=== PATIENT | female | born 1965 | race Caucasian/White ===

== ENCOUNTER 2018-11-05 10:52 | Day surgery (SDC) | payer OTHER ==
[~2018-11-05] VITALS: Ht 157.5 cm; Wt 68.0 kg
[~2018-11-05 10:52] MED LIST: IRON325 M1 PO; TRIAMTERENE-HC1 EAC1 PO
--- NOTE | 2018-11-05 12:27 | NUR ---
11/05/18 1227 Ashley Baldwin 1215 PT TO PACU AWAKE AND ALERT BUT DROWSY. DENIES PAIN AND NAUSEA. O2 ON 2L NASAL CANNULA.
== END 2018-11-05 12:55 | disposition home or self-care (01) ==
LOC: DS 10:52 → OPS 10:52 → DS 12:00 → OPS 12:00
PROVIDERS: Specialist
PROC: 079T3ZX Drainage of Bone Marrow, Percutaneous Approach, Diagnostic (ICD-10-PCS; 2018-11-05)
PROC: 07DR3ZX Extraction of Iliac Bone Marrow, Percutaneous Approach, Diagnostic (ICD-10-PCS; principal; 2018-11-05 12:00)
DX: D61.818 Other pancytopenia (principal); D75.89 Other specified diseases of blood and blood-forming organs; D64.9 Anemia, unspecified; R16.1 Splenomegaly, not elsewhere classified; R79.89 Other specified abnormal findings of blood chemistry; Z88.2 Allergy status to sulfonamides; Z79.899 Other long term (current) drug therapy
CPT/HCPCS: 85025; 99152; J2250; J3010; J7120

== ENCOUNTER 2020-03-12 17:26 | Emergency (ER) | payer MEDICARE ==
[~2020-03-12] VITALS: Ht 157.5 cm; Wt 67.1 kg
--- OUTSIDE RECORDS SUMMARY | ~2020-03-12 | XMS | Encounter Summary ---
Demographics + + + | Address | [address] | | | [place] [address] | + + + | Home Phone | | + + + | Preferred Language | Unknown | + + + | Marital Status | Single | + + + | Holiness Affiliation | NRP | + + + | Race | White | + + + | Ethnic Group | Not or | + + + Author + + + | Author | [facility] | + + + | Organization | [facility] | + + + | Address | Unknown | + + + | Phone | Unavailable | + + + Support + + +---------+ + | Name | Relationship | Address | Phone | + + +---------+ + | Claudia Cota | ECON | Unknown | | + + +---------+ + Care Team Providers + +------+ + | Care Manager Biologics Name | Role | Phone | + +------+ + | Meredith Sanchez | PCP | | + +------+ + Reason for Visit + + + | Reason | Comments | + + + | Infusion | Hydration/Magnesium/Potassium | + + + Other (Routine) +--------+--------+ + + + + | Status | Reason | Specialty | Diagnoses / | Referred By | Referred To | | | | | Procedures | Contact | Contact | +--------+--------+ + + + + | Closed | | Hematology | Diagnoses | Wil, | [facility] | | | | 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 | e[facility] [place], | [facility] [address] | | | | | (myelodyspla | DO [address] | | | | | stic | Jon Valverde | [facility] for | | | | | syndrome) | [facility] | [facility] and | | | | | (HCC) | [place], [place] | Healing, | | | | | Procedures | [address] | [address] | | | | | [place] | Phone: | [place], [place] | | | | | OFFICE/OUTPT | [phone] | [address] | | | | | | Fax: | Phone: | | | | | VISIT,EST,LE | [phone] | [phone] | | | | | [place] | | Fax: | | | | | EST PATIENT | | [phone] | | | | | LEVEL V | | | +--------+--------+ + + + + Encounter Details +--------+ + + + + | Date | Type | Department | Care Team | Description | +--------+ + + + + | 01/16/ | Hospital | [facility] | Onc, Gen [address] | | | 2020 | Encounter | Clinics at S | [facility], | | | | | [facility] [address] | [place] [address] | | | | | [facility] | | | | | | Health and Healing, | | | | | | [address] | | | | | | [place], [place] | | | | | | [address] | | | | | | [phone] | | | +--------+ + + + + Social History + + + +--------+ + | Tobacco Use | Types | Packs/Day | Years | Date | | | | | Used | | + + + +--------+ + | Former Smoker | Cigarettes | 1.5 | 28 | Quit: 06/29/2004 | + + + +--------+ + + +---+---+---+ | Smokeless Tobacco: | | | | | Never Used | | | | + +---+---+---+ + + +---------+ + | Alcohol Use | Drinks/Week | oz/Week | Comments | + + +---------+ + | Not Currently | | | very occasionally | + + +---------+ + + + + | Sex Assigned at | Date Recorded | | | | + + + | Not on file | | + + + documented as of this encounter Last Filed Vital Signs + + + + + | Vital Sign | Reading | Time Taken | Comments | + + + + + | Blood Pressure | 109/71 | 07/14/2019 9:49 AM | | | | | PST | | + + + + + | Pulse | 70 | 07/14/2019 9:49 AM | | | | | PST | | + + + + + | Temperature | 36.9 C (98.4 F) | 07/14/2019 9:49 AM | | | | | PST | | + + + + + | Respiratory Rate | 16 | 07/14/2019 9:49 AM | | | | | PST | | + + + + + | Oxygen Saturation | 98% | 07/14/2019 9:49 AM | | | | | PST | | + + + + + | Inhaled Oxygen | - | - | | | Concentration | | | | + + + + + | Weight | - | - | | + + + + + | Height | - | - | | + + + + + | Body Mass Index | - | - | | + + + + + documented in this encounter Functional Status + + + + | Functional Status | Response | Date of Assessment | + + + + | Because of a physical, mental, or emotional | No | 07/08/2019 | | condition, do you have serious difficulty | | | | doing errands alone such as visiting the | | | | doctor? | | | + + + + + + + + | Cognitive Status | Response | Date of Assessment | + + + + | Because of a physical, mental, or emotional | No | 07/08/2019 | | condition, do you have serious difficulty | | | | concentrating, remembering, or making | | | | decisions? (5 years old or older) | | | + + + + documented as of this encounter Medications at Time of Discharge + + + +---------+ + + | Medication | Sig | Dispensed | Refills | Start | End Date | | | | | | Date | | + + + +---------+ + + | valACYclovir 500 | Take 1 tablet by | 60 | 11 | 05/18/20 | | | mg oral tablet | mouth two times | tablet | | 19 | | | | daily. | | | | | + + + +---------+ + + | ciprofloxacin HCl | Take 1 tablet by | 14 | 0 | 07/12/19 | | | 500 mg oral | mouth two times | tablet | | 20 | 0 | | tabletIndications: | daily for 7 days. | | | | | | intra-abdominal | Indications: | | | | | | infection | abdominal infection | | | | | + + + +---------+ + + | metroNIDAZOLE 500 | Take 1 tablet by | 21 | 0 | 07/12/19 | | | mg oral tablet | mouth three times | tablet | | 20 | 0 | | | daily for 7 days. | | | | | + + + +---------+ + + documented as of this encounter Progress Notes Lexi Olivo RN - 07/14/2019 10:10 AM PST Name: Nona Hopper Date: 07/14/2019 Physician: Wil Allergies: Nona is allergic to cefepime and sulfa (sulfonamide antibiotics). Diagnosis: MDS Significant Other: caregiver Nursing Assessment: Fever: no; Diarrhea:No, pt states that diarrhea resolved two days ago Constipation: No SOB / Cough: no; Rash: no Edema: no; Mucositis: no; Urinary: no; Neuropathy: no; S/S Bleeding: no; Severity (1=Not at all, 2=A little, 3=Quite a bit, 4=Very much) Nausea and/or Vomitin Fatigue: 2 Pain: 0 Location: denies Duration: denies Narrative: Patient here for Magnesium and potassium. Dual chest groshong with brisk blood return obtained from both lumens. Posiflow valves and dressing changed per protocol. Each lumen flushed with 20ml NS Pt reports good PO intake. Labs include: Magnesium of 1.4 and Potassium of 2.9. Positive blood return on IV line prio r and after infusion. Medication infused with 250ml NS sidearm bag. Pt tolerated without i ncident. Line flushed per protocol. Pt Alert & Oriented x3 and discharged ambulatory. Refer to MAR and Onc Lines and Transfusions doc flowsheet for treatment details. documented in this enco unter Plan of Treatment Not on filedocumented as of this encounter Visit Diagnoses + + | Diagnosis | + + | MDS (myelodysplastic syndrome) (HCC) - Primary Myelodysplastic syndrome, unspecified | + + documented in this encounter Administered Medications + +---------+ +------+------+------+ | Medication Order | MAR | Action | Dose | Rate | Site | | | Action | Date | | | | + +---------+ +------+------+------+ | magnesium sulfate in water IV | New Bag | 07/14/19 | 4 g | | | | (RTU) 4 g 4 g, intravenous, | | 20 10:20 | | | | | ONCE, 1 dose, Cheryl 07/14/19 at 1000 | | AM PST | | | | + +---------+ +------+------+------+ +---+---+ | | | +---+---+ + +---------+ +--------+---+---+ | potassium chloride in water IV | New Bag | 07/14/19 | 20 mEq | | | | (CENTRAL LINE) 20 mEq 20 mEq, | | 20 12:20 | | | | | intravenous, ONCE, 1 dose, Cheryl | | PM PST | | | | | 07/14/19 at 1045 | | | | | | + +---------+ +--------+---+---+ +---+---+ | | | +---+---+ + +---------+ +--------+---+---+ | potassium chloride in water IV | New Bag | 07/14/19 | 20 mEq | | | | (CENTRAL LINE) 20 mEq 20 mEq, | | 20 10:20 | | | | | intravenous, ONCE, 1 dose, Cheryl | | AM PST | | | | | 07/14/19 at 1100 | | | | | | + +---------+ +--------+---+---+ +---+---+ | | | +---+---+ + +-------+ +--------+---+---+ | potassium chloride SR | Given | 07/14/19 | 20 mEq | | | | (KLOR-CON) tablet 20 mEq 20 mEq, | | 20 12:10 | | | | | oral, ONCE, 1 dose, Cheryl 07/14/19 | | PM PST | | | | | at 1045 | | | | | | + +-------+ +--------+---+---+ +---+---+ | | | +---+---+ documented in this encounter"
--- OUTSIDE RECORDS SUMMARY | ~2020-03-12 | XMS | Encounter Summary ---
Demographics + + + | Address | [address] | | | [place] [address] | + + + | Home Phone | | + + + | Preferred Language | Unknown | + + + | Marital Status | Single | + + + | Episcopal Affiliation | NRP | + + + | Race | White | + + + | Ethnic Group | Not or | + + + Author + + + | Author | [facility] | + + + | Organization | [facility] | + + + | Address | Unknown | + + + | Phone | Unavailable | + + + Support + + +---------+ + | Name | Relationship | Address | Phone | + + +---------+ + | Claudia Cota | ECON | Unknown | | + + +---------+ + Care Team Providers + +------+ + | Care Pure Culture Operator Name | Role | Phone | + +------+ + PCP | Unavailable | + +------+ + Encounter Details +--------+ + + + + | Date | Type | Department | Care Team | Description | +--------+ + + + + | 11/23/ | Abstract | [facility] | Sejal De La Torre | | | 2019 | | Clinics at S | N, DO [address] [facility] | | | | | [facility] [address] | [facility] | | | | | [facility] | [place], [place] | | | | | Health and Healing, | [address] | | | | | [address] | [phone] | | | | | [place], [place] | | | | | | [address] | | | | | | [phone] | | | +--------+ + + + + Social History + +-------+ +--------+------+ | Tobacco Use | Types | Packs/Day | Years | Date | | | | | Used | | + +-------+ +--------+------+ | Never Assessed | | | | | + +-------+ +--------+------+ + + + | Sex Assigned at | Date Recorded | | | | + + + | Not on file | | + + + documented as of this encounter Plan of Treatment Not on filedocumented as of this encounter Visit Diagnoses Not on filedocumented in this encounter"
--- OUTSIDE RECORDS SUMMARY | ~2020-03-12 | XMS | Encounter Summary ---
Demographics + + + | Address | [address] | | | [place] [address] | + + + | Home Phone | | + + + | Preferred Language | Unknown | + + + | Marital Status | Single | + + + | Jew Affiliation | NRP | + + + | Race | White | + + + | Ethnic Group | Not or | + + + Author + + + | Author | [facility] | + + + | Organization | [facility] | + + + | Address | Unknown | + + + | Phone | Unavailable | + + + Support + + +---------+ + | Name | Relationship | Address | Phone | + + +---------+ + | Claudia Cota | ECON | Unknown | | + + +---------+ + Care Team Providers + +------+ + | Care Store Lead Name | Role | Phone | + +------+ + | Meredith Sanchez | PCP | | + +------+ + Reason for Visit + + + | Reason | Comments | + + + | Infusion | | + + + | Medication | | | Administration | | + + + | Lab Draw | | + + + Other (Routine) +--------+--------+ + + + + | Status | Reason | Specialty | Diagnoses / | Referred By | Referred To | | | | | Procedures | Contact | Contact | +--------+--------+ + + + + | Closed | | Hematology | Diagnoses | Wil, | [facility] | | | | 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 | Sejal Abdiel, | [facility] [address] | | | | | (myelodyspla | DO [address] | | | | | stic | [facility] [place] | [facility] | | | | | syndrome) | [facility] | Health and | | | | | (HCC) | [place], [place] | Healing, | | | | | Procedures | [address] | [address] | | | | | [place] | Phone: | [place], [place] | | | | | OFFICE/OUTPT | [phone] | [address] | | | | | | Fax: | Phone: | | | | | VISIT,EST,LE | [phone] | [phone] | | | | | [place] | | Fax: | | | | | EST PATIENT | | [phone] | | | | | LEVEL V | | | +--------+--------+ + + + + Encounter Details +--------+ + + + + | Date | Type | Department | Care Team | Description | +--------+ + + + + | 12/31/ | Hospital | [facility] | | | | 2019 | Encounter | [facility] | | | | | | [facility] [address] | | | | | | [address] [facility] | | | | | | [facility] and Healing, | | | | | | [address] | | | | | | [place], [place] | | | | | | [address] | | | | | | [phone] | | | +--------+ + + + [...] + + + | Blood Pressure | 116/54 | 06/28/2019 3:05 PM | | | | | PST | | + + + + + | Pulse | 97 | 06/28/2019 3:05 PM | | | | | PST | | + + + + + | Temperature | 36.4 C (97.5 F) | 06/28/2019 3:05 PM | | | | | PST | | + + + + + | Respiratory Rate | - | - | | + + + + + | Oxygen Saturation | 99% | 06/28/2019 3:05 PM | | | | | PST | | + + + + + | Inhaled Oxygen | - | - | | | Concentration | | | | + + + + + | Weight | 56.7 kg (125 lb) | 06/28/2019 3:05 PM | | | | | PST | | + + + + + | Height | - | - | | + + + + + | Body Mass Index | 22.14 | 06/21/2019 9:34 AM | | | | | PST | | + + + + + documented in this encounter Functional Status + + + + | Functional Status | Response | Date of Assessment | + + + + | Because of a physical, mental, or emotional | No | 04/18/2019 | | condition, do you have serious difficulty | | | | doing errands alone such as visiting the | | | | doctor? | | | + + + + + + + + | Cognitive Status | Response | Date of Assessment | + + + + | Because of a physical, mental, or emotional | No | 04/18/2019 | | condition, do you have serious [...] + + + +---------+ + + | clotrimazole 10 mg | Take 1 tablet by | 50 | 0 | 06/24/20 | | | mucous membrane | mouth five times | Kelli | | 19 | 0 | | kelli | daily for 10 days. | | | | | | | Allow to dissolve | | | | | | | for 15-30 minutes. | | | | | + + + +---------+ + + documented as of this encounter Plan of Treatment Not on filedocumented as of this encounter Procedures + +--------+ + + + | Procedure Name | Priori | Date/Time | Associated Diagnosis | Comments | | | ty | | | | + +--------+ + + + | [facility] - MAGNESIUM, | Routin | 06/28/2019 | S/P cord blood | Results for this | | PLASMA | e | 3:00 PM | transplantation MDS | procedure are in the | | | | PST | (myelodysplastic | results section. | | | |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) | | + +--------+ + + + | [facility] - PHOSPHORUS, | Routin | 06/28/2019 | S/P cord blood | Results for this | | PLASMA | e | 3:00 PM | transplantation MDS | procedure are in the | | | | PST | (myelodysplastic | results section. | | | |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) | | + +--------+ + + + | [facility] - LDH TOTAL, | Routin | 06/28/2019 | S/P cord blood | Results for this | | PLASMA | e | 3:00 PM | transplantation MDS | procedure are in the | | | | PST | (myelodysplastic | results section. | | | |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) | | + +--------+ + + + | CBC AND AUTO DIFF | Routin | 06/28/2019 | S/P cord blood | Results for this | | | e | 3:00 PM | transplantation MDS | procedure are in the | | | | PST | (myelodysplastic | results section. | | | | | syndrome) ([facility]) | | + +--------+ + + + | [facility] - COMPLETE | Routin | 06/28/2019 | S/P cord blood | Results for this | | METABOLIC SET | e | 3:00 PM | transplantation MDS | procedure are in the | | | | PST | (myelodysplastic | results section. | | | | | syndrome) ([facility]) | | + +--------+ + + + | [facility] CBC W | Routin | 06/28/2019 | S/P cord blood | Results for this | | DIFFERENTIAL | e | 3:00 PM | transplantation MDS | procedure are in the | | | | PST | (myelodysplastic | results section. | | | | | syndrome) ([facility]) | | + +--------+ + + + | CMV PCR | Routin | 06/28/2019 | S/P cord blood | Results for this | | QUANTITATION, PLASMA | e | 3:00 PM | transplantation MDS | procedure are in the | | | | PST | (myelodysplastic | results section. | | | |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) | | + +--------+ + + + | TSH | Routin | 06/28/2019 | Fatigue, | Results for this | | | e | 3:00 PM | unspecified type | procedure are in the | | | | PST | | results section. | + +--------+ + + + documented in this encounter Results CBC AND AUTO DIFF (06/28/2019 3:00 PM PST) + + + + + + | Component | Value | Ref Range | Performed | Pathologist | | | | | At | Signature | + + + + + + | WHITE CELL | 5.31 | 3.50 - 10.80 | [facility] | | | COUNT | | K/cu mm | LABORATORY | | | | | | SERVICES, | | | | | | [facility] + | | | | | | [facility]ALING | | + + + + + + | RED CELL | 3.29 (L) | 4.00 - 5.20 | [facility] | | | COUNT | | M/cu mm | LABORATORY | | | | | | SERVICES, | | | | | | [facility] + | | | | | | [facility]ALING | | + + + + + + | HEMOGLOBIN | 9.5 (L) | 12.0 - 16.0 | [facility] | | | | | g/dL | LABORATORY | | | | | | SERVICES, | | | | | | [facility] + | | | | | | [facility]ALING | | + + + + + + | HEMATOCRIT | 29.7 (L) | 36.0 - 46.0 % | [facility] | | | | | | LABORATORY | | | | | | SERVICES, | | | | | | [facility] + | | | | | | [facility]ALING | | + + + + + + | MCV | 90.3 | 80.0 - 100.0 fL | [facility] | | | | | | LABORATORY | | | | | | SERVICES, | | | | | | [facility] + | | | | | | [facility]ALING | | + + + + + + | MCHC | 32.0 | 32.0 - 36.0 | [facility] | | | | | g/dL | LABORATORY | | | | | | SERVICES, | | | | | | [facility] + | | | | | | [facility]ALING | | + + + + + + | RDW SD | 53.0 (H) | 35.1 - 46.3 fL | [facility] | | | | | | LABORATORY | | | | | | SERVICES, | | | | | | [facility] + | | | | | | [facility]ALING | | + + + + + + | PLATELET | 156 | 150 - 400 K/cu | [facility] | | | COUNT | | mm | LABORATORY | | | | | | SERVICES, | | | | | | [facility] + | | | | | | [facility]ALING | | + + + + + + | MPV | Comment: Not Measured | | [facility] | | | | | | LABORATORY | | | | | | SERVICES, | | | | | | [facility] + | | | | | | [facility]ALING | | + + + + + + | NRBC% | 0.0 | 0.0 - 0.3 % | [facility] | | | | | | LABORATORY | | | | | | SERVICES, | | | | | | [facility] | [facility] + | | | | | | HEALING | | + + + + + + | NRBC# | 0.00 | 0.00 - 0.02 | [facility] | | | | | K/cu mm | LABORATORY | | | | | | SERVICES, | | | | | | [facility] | [facility] + | | | | | | HEALING | | + + + + + + | NEUTROPHIL | 55.5 | 50.0 - 70.0 % | [facility] | | | % | | | LABORATORY | | | | | | SERVICES, | | | | | | [facility] | [facility] + | | | | | | HEALING | | + + + + + + | LYMPHOCYTE | 19.2 | 18.0 - 42.0 % | [facility] | | | % | | | LABORATORY | | | | | | SERVICES, | | | | | | [facility] | [facility] + | | | | | | HEALING | | + + + + + + | MONOCYTE % | 13.6 (H) | 3.5 - 9.0 % | [facility] | | | | | | LABORATORY | | | | | | SERVICES, | | | | | | [facility] | [facility] + | | | | | | HEALING | | + + + + + + | EOS % | 10.7 (H) | 1.0 - 3.0 % | [facility] | | | | | | LABORATORY | | | | | | SERVICES, | | | | | | [facility] | [facility] + | | | | | | HEALING | | + + + + + + | BASO % | 0.2 | 0.0 - 2.0 % | [facility] | | | | | | LABORATORY | | | | | | SERVICES, | | | | | | [facility] | [facility] + | | | | | | HEALING | | + + + + + + | IG% | 0.8 | 0.0 - 1.0 % | [facility] | | | | | | LABORATORY | | | | | | SERVICES, | | | | | | [facility] | [facility] + | | | | | | HEALING | | + + + + + + | NEUTROPHIL | 2.95 | 1.80 - 7.70 | [facility] | | | # | | K/cu mm | LABORATORY | | | | | | SERVICES, | | | | | | [facility] | [facility] + | | | | | | HEALING | | + + + + + + | NEUTROPHIL | 2.95Comment: Preliminary | 1.80 - 7.70 | [facility] | | | # Prelim | automated neutrophil | K/cu mm | LABORATORY | | | | result. Refer to | | SERVICES, | | | | Neutrophil # for final | | [facility] | | | | neutrophil result, which | | HEALTH + | | | | may differ from this | | HEALING | | | | preliminary value. | | | | + + + + + + | LYMPHOCYTE | 1.02 | 1.00 - 4.80 | [facility] | | | # | | K/cu mm | LABORATORY | | | | | | SERVICES, | | | | | | [facility] | [facility] + | | | | | | HEALING | | + + + + + + | MONOCYTE # | 0.72 | 0.10 - 0.90 | [facility] | | | | | K/cu mm | LABORATORY | | | | | | SERVICES, | | | | | | [facility] | [facility] + | | | | | | HEALING | | + + + + + + | EOS # | 0.57 (H) | 0.00 - 0.50 | [facility] | | | | | K/cu mm | LABORATORY | | | | | | SERVICES, | | | | | | [facility] | [facility] + | | | | | | HEALING | | + + + + + + | BASO # | 0.01 | 0.00 - 0.10 | [facility] | | | | | K/cu mm | LABORATORY | | | | | | SERVICES, | | | | | | [facility] | | [facility] + | | | | | | HEALING | | + + + + + + | IG# | 0.04 | 0.00 - 0.10 | [facility] | | | | | K/cu mm | LABORATORY | | | | | | SERVICES, | | | | | | [facility] | [facility] + | | | | | | HEALING | | + + + + + + + + | Specimen | + + | Blood - Blood | | (substance) | + + + + + | Narrative | Performed At | + + + | Increased immature granulocytes (IG) define a left shift. Immature | [facility] | | granulocytes (IG) are an automated count of metamyelocytes, myelocytes | LABORATORY | | and promyelocytes. Bands are not included in the IG count. Bands are | SERVICES, | | included in the neutrophil count. | [facility] + | | | HEALING | + + + + + + + + | Performing | Address | City/State/Zipcode | Phone Number | | Organization | | | | + + + + + | [facility] | [address] | [place] [address] | | | SERVICES, [facility] | | | | | [facility] + HEALING | | | | + + + + + [facility] - COMPLETE METABOLIC SET (06/28/2019 3:00 PM PST) + +---------+ + + + | Component | Value | Ref Range | Performed | Pathologist | | | | | At | Signature | + +---------+ + + + | GLUCOSE, | 129 (H) | 70 - 99 mg/dL | [facility] | | | PLASMA | | | LABORATORY | | | (LAB) | | | SERVICES, | | | | | | [facility] | [facility] + | | | | | | HEALING | | + +---------+ + + + | BUN, PLASMA | 15 | 6 - 20 mg/dL | [facility] | | | (LAB) | | | LABORATORY | | | | | | SERVICES, | | | | | | [facility] | | | | [facility] + | | | | | | HEALING | | + +---------+ + + + | CREATININE | 1.07 | 0.60 - 1.10 | [facility] | | | PLASMA | | mg/dL | LABORATORY | | | (LAB) | | | SERVICES, | | | | | | [facility] | [facility] + | | | | | | HEALING | | + +---------+ + + + | EGFR | >60 | >60 mL/min | [facility] | | | - | | | LABORATORY | | | PALESTINIAN | | | SERVICES, | | | | | | [facility] | [facility] + | | | | | | HEALING | | + +---------+ + + + | EGFR NON | 53 (L) | >60 mL/min | [facility] | | | -RENAE | | | LABORATORY | | | RICAN | | | SERVICES, | | | | | | [facility] | [facility] + | | | | | | HEALING | | + +---------+ + + + | SODIUM, | 135 (L) | 136 - 145 | [facility] | | | PLASMA | | mmol/L | LABORATORY | | | (LAB) | | | SERVICES, | | | | | | [facility] | [facility] + | | | | | | HEALING | | + +---------+ + + + | POTASSIUM, | 3.4 | 3.4 - 5.0 | [facility] | | | PLASMA | | mmol/L | LABORATORY | | | (LAB) | | | SERVICES, | | | | | | [facility] | | [facility] + | | | | | | HEALING | | + +---------+ + + + | CHLORIDE, | 102 | 97 - 108 mmol/L | [facility] | | | PLASMA | | | LABORATORY | | | (LAB) | | | SERVICES, | | | | | | [facility] | | [facility] + | | | | | | HEALING | | + +---------+ + + + | TOTAL CO2, | 19 (L) | 21 - 32 mmol/L | [facility] | | | PLASMA | | | LABORATORY | | | (LAB) | | | SERVICES, | | | | | | [facility] | | [facility] + | | | | | | HEALING | | + +---------+ + + + | CALCIUM, | 9.1 | 8.6 - 10.2 | [facility] | | | PLASMA | | mg/dL | LABORATORY | | | (LAB) | | | SERVICES, | | | | | | [facility] | | [facility] | [facility] + | | | | | | HEALING | | + +---------+ + + + | CALCIUM(ALB | 9.5 | 8.6 - 10.2 | [facility] | | | CORRECTED) | | mg/dL | LABORATORY | | | | | | SERVICES, | | | | | | [facility] | [facility] + | | | | | | HEALING | | + +---------+ + + + | BILIRUBIN | 0.9 | 0.3 - 1.2 mg/dL | [facility] | | | TOTAL | | | LABORATORY | | | | | | SERVICES, | | | | | | [facility] | [facility] + | | | | | | HEALING | | + +---------+ + + + | TOTAL | 6.5 | 6.4 - 8.2 g/dL | [facility] | | | PROTEIN, | | | LABORATORY | | | PLASMA | | | SERVICES, | | | (LAB) | | | [facility] | | | [facility] + | | | | | | HEALING | | + +---------+ + + + | ALBUMIN, | 3.5 | 3.5 - 4.7 g/dL | [facility] | | | PLASMA | | | LABORATORY | | | (LAB) | | | SERVICES, | | | | | | [facility] | [facility] + | | | | | | HEALING | | + +---------+ + + + | ALK PHOS | 88 | 42 - 98 U/L | [facility] | | | | | | LABORATORY | | | | | | SERVICES, | | | | | | [facility] | [facility] + | | | | | | HEALING | | + +---------+ + + + | AST(SGOT) | 13 | <=41 U/L | [facility] | | | | | | LABORATORY | | | | | | SERVICES, | | | | | | [facility] | | [facility] + | | | | | | HEALING | | + +---------+ + + + | ALT (SGPT) | 14 | <=60 U/L | [facility] | | | | | | LABORATORY | | | | | | SERVICES, | | | | | | [facility] | [facility] + | | | | | | HEALING | | + +---------+ + + + | ANION GAP | 14 (H) | 4 - 11 mmol/L | [facility] | | | | | | LABORATORY | | | | | | SERVICES, | | | | | | [facility] | | [facility] + | | | | | | HEALING | | + +---------+ + + + | ANION | 15 (H) | 4 - 11 mmol/L | [facility] | | | GAP(ALB | | | LABORATORY | | | CORRECTED) | | | SERVICES, | | | | | | [facility] | | [facility] + | | | | | | HEALING | | + +---------+ + + + | POTASSIUM | No Hemo | | [facility] | | | CMNT | | | LABORATORY | | | | | | SERVICES, | | | | | | [facility] | [facility] + | | | | | | HEALING | | + +---------+ + + + | BILI T CMNT | No Hemo | | [facility] | | | | | | LABORATORY | | | | | | SERVICES, | | | | | | [facility] | | [facility] + | | | | | | HEALING | | + +---------+ + + + | AST CMNT | No Hemo | | [facility] | | | | | | LABORATORY | | | | | | SERVICES, | | | | | | [facility] | | [facility] + | | | | | | HEALING | | + +---------+ + + + | BUN/CREATIN | 14 | 8 - 25 | [facility] | | | INE RATIO | | | LABORATORY | | | | | | SERVICES, | | | | | | [facility] | [facility] + | | | | | | HEALING | | + +---------+ + + + | GLOBULIN | 3.0 | 2.3 - 3.5 gm/dL | [facility] | | | LVL | | | LABORATORY | | | | | | SERVICES, | | | | | | [facility] | [facility] + | | | | | | HEALING | | + +---------+ + + + | ALBUMIN/BURTON | 1.2 | 0.9 - 2.0 | [facility] | | | BULIN RATIO | | | LABORATORY | | | | | | SERVICES, | | | | | | [facility] | [facility] + | | | | | | HEALING | | + +---------+ + + + + + | Specimen | + + | Blood - Blood | | (substance) | + + + + + | Narrative | Performed At | + + + | GFR is estimated using the MDRD equation recommended by the National | [facility] | | Kidney Disease Education Program. Estimated GFR Interpretive | LABORATORY | | Information: <60 mL/min/1.73 sq m Chronic Kidney | SERVICES, | | Disease <15 mL/min/1.73 sq m Kidney Failure | [facility] | | Estimated GFR greater than 60 mL/min/1.73 sq m is of limited clinical | HEALTH + | | value. The MDRD equation is not valid in the following situations: | HEALING | | - Patients under 18 years of age - Severe malnutrition or obesity | | | - Vegetarian diet - Rapidly changing kidney function - Amputees, | | | paraplegics, or other muscle-wasting diseases | | + + + + + + + + | Performing | Address | City/State/Zipcode | Phone Number | | Organization | | | | + + + + + | [facility] | [address] | [place] [address] | | | SERVICES, [facility] | | | | [facility] + [facility]ALING | | | | + + + + + [facility] - LDH TOTAL, PLASMA (06/28/2019 3:00 PM PST) + +---------+ + + + | Component | Value | Ref Range | Performed | Pathologist | | | | | At | Signature | + +---------+ + + + | LD TOTAL, | 155 | <=250 U/L | [facility] | | | PLASMA | | | LABORATORY | | | | | | SERVICES, | | | | | | [facility] | | | [facility] + | | | | | | HEALING | | + +---------+ + + + | LD CMNT | No Hemo | | [facility] | | | | | | LABORATORY | | | | | | SERVICES, | | | | | | [facility] | | [facility] + | | | | | | HEALING | | + +---------+ + + + + + | Specimen | + + | Blood - Blood | | (substance) | + + + + + + + | Performing | Address | City/State/Zipcode | Phone Number | | Organization | | | | + + + + + | [facility] | [address] | [place] [address] | | | [facility] | | | | | HEALTH + HEALING | | | | + + + + + [facility] - MAGNESIUM, PLASMA (06/28/2019 3:00 PM PST) + +---------+ + + + | Component | Value | Ref Range | Performed | Pathologist | | | | | At | Signature | + +---------+ + + + | MAGNESIUM,P | 1.1 (L) | 1.6 - 2.6 mg/dL | [facility] | | | LASMA | | | LABORATORY | | | | | | SERVICES, | | | | | | [facility] | | | | [facility] + | | | | | | HEALING | | + +---------+ + + + + + | Specimen | + + | Blood - Blood | | (substance) | + + + + + + + | Performing | Address | City/State/Zipcode | Phone Number | | Organization | | | | + + + + + | [facility] | [address] | [place] [address] | | | [facility], [facility] | | | | | HE[facility] + HEALING | | | | + + + + + [facility] - PHOSPHORUS, PLASMA (06/28/2019 3:00 PM PST) + +-------+ + + + | Component | Value | Ref Range | Performed | Pathologist | | | | | At | Signature | + +-------+ + + + | PHOSPHORUS, | 3.5 | 2.4 - 4.7 mg/dL | [facility] | | | PLASMA | | | LABORATORY | | | (LAB) | | | SERVICES, | | | | | | [facility] | | | | | [facility] + | | | | | | HEALING | | + +-------+ + + + + + | Specimen | + + | Blood - Blood | | (substance) | + + + + + + + | Performing | Address | City/State/Zipcode | Phone Number | | Organization | | | | + + + + + | [facility] | [address] | [place] [address] | | | SERVICES, [facility] | | | | | [facility] + HEALING | | | | + + + + + CMV PCR QUANTITATION, PLASMA (06/28/2019 3:00 PM PST) + + + + + + | Component | Value | Ref Range | Performed | Pathologist | | | | | At | Signature | + + + + + + | CMV DNA | Undetected | Undetected, | [facility] | | | QUANTITATIO | | Undetected - | DIAGNOSTIC | | | N BY PCR, | | See Below IU/mL | | | | PLASMA | | | LABORATORIE | | | | | | S | | + + + + + + + + | Specimen | + + | Blood - Blood | | (substance) | + + + + + | Narrative | Performed At | + + + | Changes in viral load of less than 2 fold may not reflect true | [facility] | | biological changes and must be interpreted cautiously. High or | DIAGNOSTIC | | serially rising CMV loads may indicate active or impending CMV disease | LABORATORIES | | or poor antiviral therapy response. Undetected results suggest | | | either an absence of CMV viremia or the presence of low-level viremia | | | below the lower sensitivity limit of 200 IU/mL. Reportable range = | | | 200-5,000,000,000 CMV IU/mL of plasma Detection limit: At or below | | | 200 CMV IU/mL This test was developed and its performance | | | characteristics determined by the [facility] | | | [facility]. It has not been cleared or approved by | | | the Food and Drug Administration. FDA approval is not required for | | | clinical use of this test, and therefore validation was done as | | | required under the requirements of the Clinical Laboratory Improvement | | | Act of 1988. The [facility] | | | Diagnostic Center is a fully licensed and/or accredited clinical | | | laboratory under CLIA, CAP, and the [facility]. | | + + + + + + + + | Performing | Address | City/State/Zipcode | Phone Number | | Organization | | | | + + + + + | [facility] | [address] | [place] [address] | | | DIAGNOSTIC | [address] | | | | LABORATORIES | | | | + + + + + TSH (06/28/2019 3:00 PM PST) + +-------+ + + + | Component | Value | Ref Range | Performed | Pathologist | | | | | At | Signature | + +-------+ + + + | TSH | 2.40 | 0.50 - 5.07 | [facility] | | | | | mIU/L | LABORATORY | | | | | | SERVICES, | | | | | | CORE | | + +-------+ + + + + + | Specimen | + + | Blood - Blood | | (substance) | + + + + + | Narrative | Performed At | + + + | TSH reference ranges are influenced by a variety of environmental | [facility] | | influences, age, gender and ethnicity. The supplied reference limits | LABORATORY | | are based on published values utilizing a similar TSH assay, and | SERVICES, CORE | | should be interpreted with caution. | | + + + + + + + + | Performing | Address | City/State/Zipcode | Phone Number | | Organization | | | | + + + + + | [facility] | [address] | [place] [address] | | | SERVICES, CORE | [address] | | | + + + + + documented in this encounter Visit Diagnoses + + | Diagnosis | + + | Fatigue, unspecified type - Primary | + + | S/P cord blood transplantation Other specified organ or tissue replaced by transplant | + + | MDS (myelodysplastic syndrome) (HCC) Myelodysplastic syndrome, unspecified | + + documented in this encounter Administered Medications + +---------+ +------+------+------+ | Medication Order | MAR | Action | Dose | Rate | Site | | | Action | Date | | | | + +---------+ +------+------+------+ | magnesium sulfate in water IV | New Bag | 06/28/20 | 2 g | | | | (RTU) 2 g 2 g, intravenous, | | 19 3:37 | | | | | ONCE, 1 dose, 06/28/19 at | | PM PST | | | | | 1530 | | | | | | + +---------+ +------+------+------+ +---+---+ | | | +---+---+ + +---------+ +-----+---+---+ | magnesium sulfate in water IV | | 06/28/20 | 2 g | | | | (RTU) 2 g 2 g, intravenous, | | 19 4:25 | | | | | ONCE, 1 dose, Thu06/28/19 at | | PM PST | | | | | 1815 | | | | | | + +---------+ +-----+---+---+ +---+---+ | | | +---+---+ + +---------+ +-----+---+---+ | magnesium sulfate in water IV | | 06/28/20 | 4 g | | | | (RTU) 4 g 4 g, intravenous, | | 19 5:21 | | | | | ONCE, 1 dose, Thu06/28/19 at | | PM PST | | | | | 1615 | | | | | | + +---------+ +-----+---+---+ +---+---+ | | | +---+---+ + +-------+ +--------+---+---+ | potassium chloride SR | Given | 06/28/20 | 40 mEq | | | | (KLOR-CON) tablet 40 mEq 40 mEq, | | 19 5:19 | | | | | oral, ONCE, 1 dose, Thu06/28/19 | | PM PST | | | | | at 1615 | | | | | | + +-------+ +--------+---+---+ +---+---+ | | | +---+---+ + +---------+ + +---+---+ | sodium chloride (NS) 0.9 % | New Bag | 06/28/20 | 1,000 mL | | | | bolus 1,000 mL 1,000 mL, | | 19 3:37 | | | | | intravenous, NEEDED, Starting | | PM PST | | | | | 06/28/19 at 1524, Until Wed | | | | | | | 06/29/19 at 0623, decreased po | | | | | | | intake, dizziness | | | | | | + +---------+ + +---+---+ +---+---+ | | | +---+---+ documented in this encounter"
--- OUTSIDE RECORDS SUMMARY | ~2020-03-12 | XMS | Encounter Summary ---
Demographics + + + | Address | [address] | | | [place] [address] | + + + | Home Phone | | + + + | Preferred Language | Unknown | + + + | Marital Status | Single | + + + | Samaritan Affiliation | NRP | + + + | Race | White | + + + | Ethnic Group | Not or | + + + Author + + + | Author | [facility] | + + + | Organization | [facility] | + + + | Address | Unknown | + + + | Phone | Unavailable | + + + Support + + +---------+ + | Name | Relationship | Address | Phone | + + +---------+ + | Claudia Cota | ECON | Unknown | | + + +---------+ + Care Team Providers + +------+ + | Care Color Straining Bag Washer Name | Role | Phone | + +------+ + | Meredith Sanchez | PCP | | + +------+ + Reason for Visit + +--------+ + | Reason | Onset | Comments | | | Date | | + +--------+ + | Social Work Notes | 03/04/ | | | | 2018 | | + +--------+ + Encounter Details +--------+ + + + + | Date | Type | Department | Care Team | Description | +--------+ + + + + | 03/04/ | Telephone | [facility] | Work, Social | Social Work Notes | | 2019 | | Clinics at S | | | | | | [facility] [address] | | | | | | [facility] for | | | | | | Health and Healing, | | | | | | [address] | | | | | | [place], [place] | | | | | | [address] | | | | | | [phone] | | | +--------+ + + + [...] + + documented as of this encounter Functional Status + + + + | Functional Status | Response | Date of Assessment | + + + + | Because of a physical, mental, or emotional | No | 01/17/2019 | | condition, do you have serious difficulty | | | | doing errands alone such as visiting the | | | | doctor? | | | + + + + + + + + | Cognitive Status | Response | Date of Assessment | + + + + | Because of a physical, mental, or emotional | No | 01/17/2019 | | condition, do you have serious difficulty | | | | concentrating, remembering, or making | | | | decisions? (5 years old or older) | | | + + + + documented as of this encounter Miscellaneous Notes Telephone Encounter - Elham Delcid - 03/04/2019 12:52 PM PDTSocial Work Specialist Brief I ntervention Identified needs: Lodging 03/09 to 03/11 Interventions: Received a call from [facility] they were not able to find lodging. Lodging Plan: 03/09 to 03/11 rpv waitlisted with backup plan Melly bell using [employer] SupervisorSmoke Tester [address] [facility] Mailcode: [id number] [id number] documented in this encounte r Plan of Treatment Not on filedocumented as of this encounter Visit Diagnoses Not on filedocumented in this encounter"
--- OUTSIDE RECORDS SUMMARY | ~2020-03-12 | XMS | Encounter Summary ---
Demographics + + + | Address | [address] | | | [place] [address] | + + + | Home Phone | | + + + | Preferred Language | Unknown | + + + | Marital Status | Single | + + + | Roman Catholic Affiliation | NRP | + + + | Race | White | + + + | Ethnic Group | Not or | + + + Author + + + | Author | [facility] | + + + | Organization | [facility] | + + + | Address | Unknown | + + + | Phone | Unavailable | + + + Support + + +---------+ + | Name | Relationship | Address | Phone | + + +---------+ + | Claudia Cota | ECON | Unknown | | + + +---------+ + Care Team Providers + +------+ + | Care Affiliate Marketing Specialist Name | Role | Phone | + +------+ + | Meredith Sanchez | PCP | | + +------+ + Reason for Visit + +--------+ + | Reason | Onset | Comments | | | Date | | + +--------+ + | Medication | 07/25/ | IST: Tacrolimus | | Adjustment | 2020 | | + +--------+ + Encounter Details +--------+ + + + + | Date | Type | Department | Care Team | Description | +--------+ + + + + | 07/25/ | Telephone | [facility] | Sejal De La Torre | Medication | | 2020 | | Clinics at S | N, DO [address] | Adjustment (IST: | | | | [facility] [address] | Tacrolimus) | | | | [facility] for | [place], [place] | | | | | Health and Healing, | [address] | | | | | [address] | [phone] | | | | | [place], [place] | | | | | | [address] | | | | | | [phone] | | | +--------+ + + + [...] this encounter Miscellaneous Notes Telephone Encounter - Tayo Osborne MA - 07/26/2019 2:33 PM PSTFormatting of this no te might be different from the original. Result Follow-up CSA level: Lab Results Component Value Date FK506 9.5 07/25/2019 Nona's dose will remain the same per Sejal De La Torre DO. Patient and/or their caregiver verified they are taking 0.5 mg every morning and 0.5 mg chirag ry evening. elephone Encounte nicola - Dionne Barreto RN - 07/25/2019 3:20 PM PSTInitial Assessment Nona Hopper's cash person for today is patient, Nona Hopper, and her conta ct phone number for today 07/25 is: [phone]. Nnoa has been advised of when to expect a confirmation call regarding any necessary dose adjustments: yes. Nona was asked to contact this clinic if she has not received a confirma tion call within 24 hours. Nona reports she currently takes Tacrolimus 0.5 mg every morning and 0.5 mg every evening . This is the correct dose according to her most recent dose adjustment.0.5 Nona took her last dose at 2100 (time) on 07/24 (date). documented in this encounter Plan of Treatment Not on filedocumented as of this encounter Visit Diagnoses Not on filedocumented in this encounter"
--- OUTSIDE RECORDS SUMMARY | ~2020-03-12 | XMS | Encounter Summary ---
Demographics + + + | Address | [address] | | | [place] [address] | + + + | Home Phone | | + + + | Preferred Language | Unknown | + + + | Marital Status | Single | + + + | Latter-Day Affiliation | NRP | + + + [...] Team Providers + +------+ + | Care Methods Time Analyst Name | Role | Phone | + +------+ + | Meredith Sanchez | PCP | | + +------+ + Encounter Details +--------+ + + + + | Date | Type | Department | Care Team | Description | +--------+ + + + + | 07/11/ | Pharmacy | Pharmacy @ [facility] | | | | 2020 | Visit | [address] | | | | | | Reji Callahan Mailcode: | | | | | | [facility] | | | | | | and Healing, | | | | | | [address] | | | | | | [place], [place] | | | | | | [address] | | | +--------+ + + + [...]
--- OUTSIDE RECORDS SUMMARY | ~2020-03-12 | XMS | Encounter Summary ---
Demographics + + + | Address | [address] | | | [place] [address] | + + + | Home Phone | | + + + | Preferred Language | Unknown | + + + | Marital Status | Single | + + + | Yazidi Affiliation | NRP | + + + | Race | White | + + + | Ethnic Group | Not or | + + + Author + + + | Author | [facility] | + + + | Organization | [facility] | + + + | Address | Unknown | + + + | Phone | Unavailable | + + + Support + + +---------+ + | Name | Relationship | Address | Phone | + + +---------+ + | Claudia Cota | ECON | Unknown | | + + +---------+ + Care Team Providers + +------+ + | Care Bank Operations Officer Name | Role | Phone | + +------+ + | Meredith Sanchez | PCP | | + +------+ + Reason for Visit + +--------+ + | Reason | Onset | Comments | | | Date | | + +--------+ + | Other | 03/01/ | hard time breathing with walking around | | | 2019 | | + +--------+ + | Wheezing | 03/01/ | when taking stairs | | | 2019 | | + +--------+ + | Weight gain | 03/01/ | up 4 lbs over week | | | 2019 | | + +--------+ + | Edema | 03/01/ | bilateral ankles and feet | | | 2019 | | + +--------+ + | Diarrhea | 03/01/ | none today, approx 3 episodes a day 2-3 days this week | | | 2019 | | + +--------+ + | Rash | 03/01/ | around face where the mask was worn | | | 2019 | | + +--------+ + Encounter Details +--------+ + + + + | Date | Type | Department | Care Team | Description | +--------+ + + + + | 03/01/ | Telephone | [facility] | Sejal De La Torre | Other (hard time | | 2020 | | Clinics at S | N, DO [address] | breathing with | | | | [facility] [address] | walking around ); | | | | [facility] for | [place], [place] | Wheezing (when | | | | Health and Healing, | [address] | taking stairs); | | | | [address] | [phone] | Weight gain (up 4 | | | | [place], [place] | | lbs over week); | | | | [address] | | Edema (bilateral | | | | [phone] | | ankles and feet); | | | | | | Diarrhea (none | | | | | | today, approx 3 | | | | | | episodes a day 2-3 | | | | | | days this week); | | | | | | Rash (around face | | | | | | where the mask was | | | | | | worn) | +--------+ + + + + Social [...] on file | | + + + + + + + | COVID-19 Exposure | Response | Date Recorded | + + + + | In the last month, have you been in contact | No / Unsure | 02/23/2020 10:19 AM | | with someone who was confirmed or | | PDT | | suspected to have Coronavirus / COVID-19? | | | + + + + [...] this encounter Miscellaneous Notes Telephone Encounter - Maricruz Morataya RN - 03/12/2020 4:[address] De La Torre re: Nona Hopper being SOB, she gave instructions for Nona to go to the ER for a work up an d we will check up on her tomorrow. Nona verbalized Understanding and will go to ER.Elect ronically signed by Maricruz Morataya RN at 03/12/2020 4:50 PM PDTTelephone Encounter - Kalie Fragoso RN - 03/01/2020 1:38 PM PDTrec'd message from call center stating pt was having trou ble with her breathing and edema. brush painter called pt back to discuss further. Pt reports her elevators are out in her building and she had to take the stairs. She climb ed 3 flights and noticed wheezing and had a difficult time catching her breath. She normall y takes the elevator to her apt. She reports weight gain over the past week of 4 lbs. She notes bilateral foot and ankle ed april. She is wearing martha hose and elevating in reclining position thru out the day off and o n The edema is pitted, leaves a finger print when pushed in. She feels it is the same as w hen she was seen this week by Cathy Cornelius. She has had diarrhea approx 3 times a day 3 times this week but none so far this morning. She has not taken any imodium. Pt's PFT test results are back and her pulmonary function is decreased. She denies fever, nausea or vomiting. She does have a little face rash , "where I wore my face mask". Paged Cathy Cornelius FUDGE CANDY MAKER and discussed above sx's and concerns. 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 And Lasix 20 mg a day for 3 days. Pt notified of new orders and states understanding. elephone Encounter - Rosalie Donovan - 03/01/2020 11:40 AM PDTPat ient called in and is having a hard time breathing and her legs are very swollen and feels t hat she has put on more weight than is normal. Please give her a call. When sitting down she is fine but when going up and down stairs she is winded. documented in this encounter Plan of Treatment Not on filedocumented as of this encounter Visit Diagnoses Not on filedocumented in this encounter
--- OUTSIDE RECORDS SUMMARY | ~2020-03-12 | XMS | Encounter Summary ---
Demographics + + + | Address | [address] | | | [place] [address] | + + + | Home Phone | | + + + | Preferred Language | Unknown | + + + | Marital Status | Single | + + + | Protestant Affiliation | NRP | + + + | Race | White | + + + | Ethnic Group | Not or | + + + Author + + + | Author | [facility] | + + + | Organization | [facility] | + + + | Address | Unknown | + + + | Phone | Unavailable | + + + Support + + +---------+ + | Name | Relationship | Address | Phone | + + +---------+ + | Claudia Cota | ECON | Unknown | | + + +---------+ + Care Team Providers + +------+ + | Care Shift Production Associate Name | Role | Phone | + +------+ + | Meredith Sanchez | PCP | | + +------+ + Reason for Visit + +--------+ + | Reason | Onset | Comments | | | Date | | + +--------+ + | Medication | 08/04/ | [facility] [place] | | Adjustment | 2020 | | + +--------+ + Encounter Details +--------+ + + + + | Date | Type | Department | Care Team | Description | +--------+ + + + + | 08/04/ | Telephone | [facility] | Katelyn Corneliusn | Medication | | 2020 | | Clinics at S | M, MICA PATCHER [address] | Adjustment (IST | | | | [facility] [address] | [place]) | | | | [facility] for | [place], [place] | | | | | Health and Healing, | [address] | | | | | [address] | [phone] | | | | | [place], [place] | | | | | | [address] | | | | | | [phone] | | | +--------+ + + + [...] documented as of this encounter Miscellaneous Notes Addendum Note - Tayo Horne MA - 08/04/2019 5:21 PM PST Addended by: GLORY HORNE MA ISTOPHER on: 08/04/2019 05:21 PM Modules accepted: Orders elephone Encoun ter - Tayo Horne MA - 08/04/2019 5:14 PM PSTFormatting of this note might be diffe rent from the original. Initial Assessment Nona Hopper's hospital personnel director for today is patient, Nona Hopper, and her conta ct phone number for today 08/04 is: [phone]. Nona has been advised of when to expect a confirmation call regarding any necessary dose adjustments: yes. Nona was asked to contact this clinic if she has not received a confirma tion call within 24 hours. Nona reports she currently takes Tacrolimus 0.5 mg every morning and 0.5 mg every evening . This is the correct dose according to her most recent dose adjustment. Nona took her last dose at 2100 (time) on 08/03/19 (date). Result Follow-up CSA level: Lab Results Component Value Date FK506 13.6 08/04/2019 Nona will be contacted to change dose from 0.5 mg every morning and 0.5 mg every evening to HOLD three doses and then continue to take 0.5 mg every morning and 0.5 mg every evening per Cathy Cornelius OUTBOUND TELEMARKETING REPRESENTATIVE starting on 08/06/19 (date). Nona and/or her caregiver have been contacted and were able to provide verbal read back o f these instructions. documented in this encounter Plan of Treatment Not on filedocumented as of this encounter Visit Diagnoses Not on filedocumented in this encounter"
--- OUTSIDE RECORDS SUMMARY | ~2020-03-12 | XMS | Encounter Summary ---
Demographics + + + | Address | [address] | | | [place] [address] | + + + | Home Phone | | + + + | Preferred Language | Unknown | + + + | Marital Status | Single | + + + | Adventism Affiliation | NRP | + + + | Race | White | + + + | Ethnic Group | Not or | + + + Author + + + | Author | [facility] | + + + | Organization | [facility] | + + + | Address | Unknown | + + + | Phone | Unavailable | + + + Support + + +---------+ + | Name | Relationship | Address | Phone | + + +---------+ + | Claudia Cota | ECON | Unknown | | + + +---------+ + Care Team Providers + +------+ + | Care Automation Software Engineer Name | Role | Phone | + +------+ + | Meredith Sanchez | PCP | | + +------+ + Reason for Visit Office Visit - E/M Services (Routine) +--------+--------+ + + + + | Status | Reason | Specialty | Diagnoses / | Referred By | Referred To | | | | | Procedures | Contact | Contact | +--------+--------+ + + + + | Closed | | Hematology / | Diagnoses | Wil, | Wil, | | | | Hematology | MDS | Sejal Meadows, | Sejal Meadows, | | | | Malignancy | (myelodyspla | DO [address] | DO [address] | | | | | stic | Jon Valverde | Jon Valverde | | | | | syndrome) | Melly Lujan | Melly Lujan | | | | | (HCC) | [facility] [place] | [facility] | | | | | Procedures | [id number] | [phone] | | | | | [place] | Phone: | Phone: | | | | | OFFICE/OUTPT | [phone] | [phone] | | | | | | Fax: | Fax: | | | | | VISIT,CORTNEY RIDDLE | [phone] | [phone] | | | | | VL IV | | | +--------+--------+ + + + + Encounter Details +--------+---------+ + + + | Date | Type | Department | Care Team | Description | +--------+---------+ + + + | 07/14/ | Office | [facility] | Cathy Cornelius | S/P cord blood | | 2020 | Visit | [facility] | M, ACOUSTICAL INSTALLER [address] | transplantation | | | | [facility] [address] | (Primary Dx) | | | | [facility] | [place], [place] | | | | | [facility], | [address] | | | | | Building [address] | [phone] | | | | | [place], [place] | | | | | | [address] | | | | | | [phone] | | | +--------+---------+ + + + Social History + + [...] | Blood Pressure | 109/71 | 07/14/2019 8:43 AM | | | | | PST | | + + + + + | Pulse | 70 | 07/14/2019 8:43 AM | | | | | PST | | + + + + + | Temperature | 36.9 C (98.4 F) | 07/14/2019 8:43 AM | | | | | PST | | + + + + + | Respiratory Rate | - | - | | + + + + + | Oxygen Saturation | 98% | 07/14/2019 8:43 AM | | | | | PST | | + + + + + | Inhaled Oxygen | - | - | | | Concentration | | | | + + + + + | Weight | 55.2 kg (121 lb 12.8 | 07/14/2019 8:43 AM | | | | oz) | PST | | + + + + + | Height | - | - | | + + + + + | Body Mass Index | 22.47 | 07/08/2019 4:32 PM | | | | | PST [...] + + documented as of this encounter Patient Instructions Patient Instructions Cathy Cornelius NP - 07/14/2019 9:00 AM PST1. Call the BMT clini c ([phone]) or BMT person on-call ([phone]) for: Any temp > 100.4 Nausea/vomiting unresponsive to anti-nausea medications Significant diarrhea despite Imodium Inability to drink at least 2 liters of fluid daily You develop a rash Bleeding 2.-We'll call you to adjust your Tacrolimus if necessary. 3. Decrease steroids per taper from hospital discharge 4. Do not picking supervisor beclomethasone unless you develop worsening upper GI symptoms 5. OK to stop Prevymis (letermorvir) 6. Increase your potassium to 20mEQ (2 tablets) two times daily 7. OK to break Flagyl in half to make it easier to take 8. Please contact our social work team if you find out there are housing complications when you return to [place] 9. Follow up labs on 07/18 and with our team again on 07/21 documented in this encounter Progress Notes Cathy Cornelius NP - 07/14/2019 9:00 AM PST 07/14/19- Day +83 post transplant CHM Physician: Sejal De La Torre DO Local oncologist: Dr. Sequeira Hematologic Malignancy: MDS Conditioning regimen: FluCyTBI Date of transplant: 04/22/2019 Donor: CBU 1: [id number]/02 match, CBU 2: [id number]/02 match Research study: Kyle "[id number]: A Multicenter, Randomized, Phase III Registration Tr ial of Transplantation of NiCord, Ex Vivo Expanded, UCB-derived, Stem and Progenitor Cells , vs. Unmanipulated UCB for Patients With Hematological Malignancies". She was randomized to SOC arm. ID: Analy Dwyer is a 53yo female with history of MDS-EB2 s/p FluCyTBI cord transplant (Da y 0=04/22/19). 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 She was recently hospitalized from 07/07/19-07/12/19 for na usea, vomiting, diarrhea and rash concerning for GVHD and found to have colitis. During that admission a chest X-ray showed suspicious lung nodules with concern for fungal infection. 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 --December 2018- developed fevers up to 104. Work up neg for infection, but noted to have CBC s howing dropping counts. --Jun. Moved to [place] ([facility]) -- 10/07/18 showed normal chemistries, Bilirubin 1.4, hepatitis negative, ESR elevated at 17 4 with RA, RIOS C3/C4 negative. CBC showed WBC 2.4, Hb 10.8, Plt 166K, ANC 1529. 11/05/[address] Sequeira (medical oncology) . 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 Mild erythroid hyperp lasia and megakaryocytic atypia. Blast immunophenotype was positive for CD33, CD45 dim, CD34 , CD15, CD117, CD 11c, MPO. -Cytogenetics were normal. -MDS and AML FISH panel was negative. -Gentrails negative for FLT3, NPM1, CEBPA, c-KIT, IDH1, IDH2, TP53. 12/24/2018- Vidaza however developed a rash to the SQ injection and missed D3, dexamethasone was added for D4-D7. 01/14-01/26/2019 admitted for zoster to [facility]. Vidaza held. 02/17/2019- seen at [facility] by Dr. De La Torre, no healthy siblings so cord blood is only option -consented to kyle "[id number]: A Multicenter, Randomized, Phase III Registration Tri pr of Transplantation of NiCord, Ex Vivo Expanded, UCB-derived, Stem and Progenitor Cells, vs. Unmanipulated UCB for Patients With Hematological Malignancies". She was randomized to SOC arm. --02/21-03/01 C3 aza.Tolerated well without complications. --04/15-05/18/2019 admitted to [facility] for planned flu/cy/tbi conditioned UCB on Gamida study (SOC arm). 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 Interval History: Analy comes to clinic today for post-transplant follow up. She is accomp anied by her caregiver, Melly, at today's visit. She is overall feeling much better since her recent admission. She is now having normal bowel movements and she is able to eat and drinki ng without nausea or vomiting. She has been very hungry recently and is eating about 3-4 lar ge meals daily. She is also drinking more than 2 liters daily. She states she did not realiz e how sick she was until she started feeling well several days ago. She does note weakness m ore on her right side than left side. She always "veers" to the right when walking. She thin ks this is related to her weakness, not a balance issue. Her insomnia has improved since dis charge and last night was the first night she was able to sleep soundly through the night. Review of Systems: General: Denies fevers, chills, weight loss or sweats. +weakness ENT: Denies changes in vision or double vision. Denies hearing loss, nosebleeds, nasal pedro estion, difficulty swallowing, hoarseness or sore throat. Respiratory: Denies coughing up blood, excessive sputum, cough, chest discomfort or wheezin g. Cardiovascular: No chest pain, lightheadedness,shortness of breath. Gastrointestinal: Denies indigestion, vomiting,occasional loose stool, but normal for the p ast 2 days. No abdominal pain. No nausea or vomiting. Musculoskeletal: No joint pain, swelling, stiffness, back pain, arthritis, muscle aches or muscle cramps. Skin: Healing rash to upper back and chest. Psychological: No abnormal anxiety, depression. Remainder of ROS is otherwise negative. Current Medication List Name Sig CIPROFLOXACIN 500 MG TABLET Take 1 tablet by mouth two times daily for 7 days. Indications: abdominal infection ESCITALOPRAM 20 MG TABLET Take 1 tablet by mouth once daily. Indications: major depressive disorder FAMOTIDINE 20 MG TABLET Take 1 tablet by mouth once daily at bedtime. Indications: preventi on of inflammation of stomach HYDROCORTISONE 2.5 % TOPICAL CREAM WITH PERINEAL APPLICATOR Apply to affected area three ti mes daily as needed. Wash and dry the rectal area, gently massage a small amount into the af fected area. LOPERAMIDE 2 MG CAPSULE Take 1 capsule by mouth as needed for diarrhea. Do not exceed max d ose of 16 mg/day. LORATADINE 10 MG TABLET Take 1 tablet by mouth once daily as needed. Indications: bone pain . METRONIDAZOLE 500 MG TABLET Take 1 tablet by mouth three times daily for 7 days. OLANZAPINE 2.5 MG TABLET Take 1 tablet by mouth once daily at bedtime. OMEPRAZOLE 40 MG CAPSULE,DELAYED RELEASE Take 1 capsule by mouth once daily. Administer 30 to 60 minutes before meals ONDANSETRON HCL 8 MG TABLET Take 1 tablet by mouth every twelve hours as needed for nausea/ vomiting. Indications: nausea and vomiting caused by cancer drugs POSACONAZOLE 100 MG TABLET,DELAYED RELEASE Take 4 tablets by mouth once daily. Indications: prevention of fungal infection POTASSIUM CHLORIDE ER 10 MEQ TABLET,EXTENDED RELEASE(PART/CRYST) Take 2 tablets by mouth tw o times daily. Indications: low amount of potassium in the blood PREDNISONE 5 MG TABLET Take 4 tablets by mouth two times daily before meals for 5 days, THE N 3 tablets two times daily before meals for 5 days, THEN 2 tablets two times daily before m eals for 5 days, THEN 2 tablets once daily for 5 days. PROCHLORPERAZINE MALEATE 5 MG TABLET Take 1-2 tablets by mouth every six hours as needed fo r nausea/vomiting. Max dose: 40 mg/day ROPINIROLE 0.5 MG TABLET Take 1 tablet by mouth once daily in the evening. TACROLIMUS 0.5 MG CAPSULE Effective 07/14/2019: Take 1 mg by mouth every morning and 0.5 mg every evening. Combine 0.5mg and 1mg capsules to make your current dose. HOLD on days of cl inic and bring with you to take AFTER your labs are drawn. Indications: prevention of GVHD I ndications: prevention of graft versus host TACROLIMUS 1 MG CAPSULE Effective 07/14/2019: Take 1 mg by mouth every morning and 0.5 mg e very evening. Combine 0.5mg and 1mg capsules to make your current dose. HOLD on days of clin ic and bring with you to take AFTER your labs are drawn. Indications: prevention of GVHD Ind ications: prevention of graft versus host disease TRAMADOL 50 MG TABLET Take 1 tablet by mouth every six hours as needed for moderate pain. TRIAMCINOLONE ACETONIDE 0.1 % TOPICAL OINTMENT Apply a thin film to the affected areas twi ce daily as needed . Indications: skin rash URSODIOL 500 MG TABLET Take 1 tablet by mouth two times daily. Take this medication through day +90 (07/21/2019) Indications: prevention of veno-occulsive disease VALACYCLOVIR 500 MG TABLET Take 1 tablet by mouth two times daily. Vitals: BP Readings from Last 1 Encounters: 07/14/19 109/71 Pulse Readings from Last 1 Encounters: 07/14/19 70 Resp Readings from Last 1 Encounters: 07/14/19 16 Wt Readings from Last 1 Encounters: 07/14/19 55.2 kg (121 lb 12.8 oz) Temp Readings from Last 1 Encounters: 07/14/19 36.9 C (98.4 F) (Oral) Body mass index is 22.47 kg/m. Physical Exam: General:This is a femalein no acute distress. HEENT:PERRL. Sclerae anicteric. Mucosa pink and moist. No ulcers or exudates Skin:Mild erythema to upper back and chest, healing rash Chest:Clear to auscultation bilaterally. CV:RRR, no murmurs. Abdomen: S/NT/ND with NABS. No guarding, rigidity or rebound tenderness.No HSM apprec iated. Extremities: Pulses strong and equal bilaterally. No c/c/e Neuro: Alert and oriented x 3. Grossly nonfocal exam. CVC:Central Line, Left chest DL - no erythema, edema, tenderness or drainage. Dressing clean, dry and intact. Laboratory Results: CBC with diff: Last 72 hours (or 3 results) CBC with diff last 72 hours (or 3 results) - Refreshable Recent Labs 07/12/19 0130 07/14/19 0804 WBC 3.78 5.13 HB 7.2* 8.7* HCT 25.0* 28.4* PLT 191 -- NEUTROPERC 72.2* 60.4 LYMPHPERC 20.1 26.9 MONOPERC 6.9 10.9* BASOPERC 0.0 0.0 EOSPERC 0.0* 0.4* Recent Labs 07/12/19 0130 07/14/19 0804 WBC 3.78 5.13 HB 7.2* 8.7* HCT 25.0* 28.4* PLT 191 -- NEUTROPERC 72.2* 60.4 LYMPHPERC 20.1 26.9 MONOPERC 6.9 10.9* BASOPERC 0.0 0.0 EOSPERC 0.0* 0.4* Chemistries: Last 72 Hours (or 3 results): Recent Labs 07/11/19 0002 07/12/19 0211 07/14/19 0804 NA 137 142 141 K 3.2* 3.5 2.9* CL 104 110* 104 BICARB 27 26 27 BUN 10 9 14 CR 0.60 0.62 0.91 GLU 170* 156* 124* CA 8.4* 8.2* 8.5* AST 15 10 16 ALT 9 10 22 AP 87 80 76 TBILI 0.5 0.4 0.4 TP 5.6* 5.2* 5.9* ALB 3.0* 2.8* 3.1* ANIONGAP 6 6 10 ANIONALBCOR 8 9 12* Lab Results Component Value Date MG 1.4 07/14/2019 Assessment/Plan: 1. Hematology: History of MDS s/p FluCyTBI double cord (Day 0=04/22/19) She is enrolled in Gam[facility] "[id number]: A Multicenter, Randomized, Phase III Registration Trial of Transplant ation of NiCord, Ex Vivo Expanded, UCB-derived, Stem and Progenitor Cells, vs. Unmanipulat ed UCB for Patients With Hematological Malignancies". She was randomized to SOC arm.Her re cent bone marrow studies on 05/25/19 showed hypocellular marrow (25%) with trilineage hemato poiesis with no evidence of disease. Her karyotype was normal and no prior mutations were de tected on genetrails. Her engraftment studies show 100% donor #2 (female) -Next BMBx, chimerisms due on Day +100 (requested) CBC reviewed and reveals improved anemia with no other abnormalities. Differential reviewed and reveals mild post-transplant monocytosis. 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 Grade 2 skin noted 06/24/2019 BSA 30% and n oted improvement in steroid cream. Nausea and low appetite with decreased PO intake likely r elated to upper GI GVHD. Diarrhea and abdominal cramping worsened on 07/07 and was subsequentl y admitted for work-up. Her EGD/flex sig revealed colitis and unlikely GVHD, however patholo gy could not rule out low grade lower GI GVHD. Continue steroid taper as tolerated, see belo w. -Prophylaxis with tacrolimus and MMF per Kyle protocol -Tacrolimus startedD-3 (goal 5-15) -s/p MMF 1 gm PO TID D-3 to D+60 (stopped on 06/21/2019) -Prednisone started 1mg/kg/day on 07/07 with plan for rapid taper given negative biopsies. -Take 20mg BID for 5 days (07/12-07/16), THEN 15mg two times daily for 5 days (07/17-07/21), THEN 10mg two times daily for 5 days (07/22-07/26), THEN 10mg once daily for 5 days (07/27- ) If evidence of GVHD during taper will adjust accordingly -Beclomethasone ordered on 07/01 but unable to obtain PA, OK to hold given no evidence of GV HD per pathology or on ROS -Continue triamcinolone cream BID to areas of rash Kyle Simpson phase 3 (IRB 42342) Acute GVHD Staging Complete on study visit days 7,14, 21, +28, 35, 42, 56, 70, 100, 180 aGVHD Staging Criteria: Rule of 9:arm 9%; head 18%; palm 1%; leg 18%; anterior chest 18%; posterior chest 18%; carlton meka 1%. Stage Skin/Rash Liver (Tbili mg/dL) Upper GI Lower GI 1 <25% BSA 2-3 mg/dL Persistent anorexia, nausea, or vomiting 500-1000 mL diarrhea/day 2 25-50% BSA 3.1-6 mg/dL 8740-2687 mL diarrhea/day 3 >50% BSA Generalized erythroderma 6.1-15 mg/dL >1500 mL diarrhea/day 4 Generalized erythroderma with bullus formation >15 mg/dL Severe abdominal pain with/without ileus Determine Differential Diagnosis: (Y/N): GVHD:Y Drug Reaction:n Conditioning regimen toxicity:n Infection:n Other (describe):n (Y/N): GVHD:n Drug Reaction:n Conditioning regimen toxicity:n TPN:n Infection:n Other (describe):n (Y/N): GVHD:n Drug Reaction:n Conditioning regimen toxicity:n TPN:n Infection:y Other (describe):n (Y/N): GVHD:n Drug Reaction:n Conditioning regimen toxicity:n TPN:n Infection:y Other (describe):n Complete Values: BSA%:n Bullae (Y/N):n TBili: 0.9 24H Diarrhea Vol: 2 BMs Severe abd pain (Y/N): n Ileus (Y/N):n Assign Stage: 1 0 Biopsy not c/w GVHD, +colitis Biopsy not c/w GVHD Presumptive/ Confirmed Dx of aGVHD? (Y/N) y n n n Pulmonary: Pretransplant PFTs completed on03/10/19 showed FEV1 of76% predicted, FVC o f87% predicted and adjusted DLCO of77% predicted. Plan for PFTs at Day +100 (requested t josé luis, 07/14) ID: Recent admission for colitis and now being treated with Cirpo/Flagyl x7 days through . Continue prophylactic antimicrobials with Valtrex (recent hx HSV, will continue throu gh Day +365), posaconazole, pentamidine (given on07/09/19). Of note, patient is toxo negative . -Per cord protocol: Check EBV and HHV6 weekly Concern for fungal pneumonia, seen during routine CXR on recent admission and now s/p BAL p er ID/pulm recs -Posaconazole, last level on 07/10=0.3 and increased to 400mg daily -Repeat Chest CT scheduled for 07/21 per ID recs -Broad range PCR from BAL on 07/11 remains pending FEN: Continues with low bacteria diet through Day +100. Appetite improved since treating co litis and starting prednisone. Electrolytes reviewed and reveals hypokalemia and hypomagnesi a, likely related to tacrolimus given improved GI symptoms -HypoMg 2/2 CNI: Continue IV replacement in clinic PRN -HypoK: KDur 20 mEq BID, increased on 07/14 given profound hypokalemia=2.9 GI: Recent concern for upper and lower GI GVHD, however noted to have colitis and improved with treatment -Continue steroid taper and IST as above -Consider beclomethasone if upper GI symptoms persist or worsen Risk of gastritis: Continue Pepcid 20 mg BID Risk for VOD:no e/o this currently. Continue Ursodiol 500 mgPO BID through Day +90 () Pysch: #Insomnia related to RLS: continue Requip 0.5 mg qHS, increased on 06/13 #Depression:Stable, continue home SSRI. -Lexapro 20 mg PO daily Plan/Patient Instructions: 1. Call the BMT clinic ([phone]) or BMT person on-call ([phone]) for: Any temp > 100.4 Nausea/vomiting unresponsive to anti-nausea medications Significant diarrhea despite Imodium Inability to drink at least 2 liters of fluid daily You develop a rash Bleeding 2.-We'll call you to adjust your Tacrolimus if necessary. 3. Decrease steroids per taper from hospital discharge 4. Do not picking supervisor beclomethasone unless you develop worsening upper GI symptoms 5. OK to stop Prevymis (letermorvir) 6. Increase your potassium to 20mEQ (2 tablets) two times daily 7. OK to break Flagyl in half to make it easier to take 8. Please contact our social work team if you find out there are housing complications when you return to [place] 9. Follow up labs on 07/18 and with our team again on 07/21 Cathy Cornelius NP [facility] [address] [facility] [address] Mailcode: [place] [address] documented in thi s encounter Plan of Treatment Not on filedocumented as of this encounter Results SPIROMETRY, PULM FUNCTION LAB (07/28/2019 1:19 PM PST) + + + + + + | Component | Value | Ref Range | Performed | Pathologist | | | | | At | Signature | + + + + + + | PULMONARY | Site: [facility] and | | [facility] | | | INTERPRETAT | [facility], [address] | [address] | | [address] | [address] [facility] | | DIAGNOSTICS | | | | [address],[place], [place], | | - | | | | [address]XJ: [id number] | | PULMONARY | | | | Name: ANALY HOPPER | | FUNCTION | | | | ANNVisit Date: | | | | | | 07/28/2019 Second ID: | | | | | | [id number]: | | | | | | Wolfgang Faith: 53 | | | | | | : 1965 Sex: | | | | | | Female Race: | | | | | | CaucasianHeight: 62.60 | | | | | | Inches Weight: | | | | | | 124.34 Lbs BSA: | | | | | | 1.57Order IDs: | | | | | | [id number] | | | | | | Test(s): | | | | | | <SPIROMETRY>Diagnosis: | | | | | | Z94.89 Cord Blood | | | | | | TransplantDyspnea: No | | | | | | Dyspnea Cough: No | | | | | | Cough Wheeze: No | | | | | | WheezeTbco Prod: | | | | | | Cigarette Yrs Smk: | | | | | | 28.0 Pks/Day: 1.0 | | | | | | Yrs Quit: 12.0Post | | | | | | Test Comments: Patient | | | | | | height and weight | | | | | | reviewed. Good patient | | | | | | effort &cooperation. | | | | | | The results of this | | | | | | test meet the ATS | | | | | | standards for | | | | | | acceptabilityand | | | | | | repeatability.Review | | | | | | Status: | | | | | | Completed+Posted+Locked | | | | | | | | | | | | | | | | | | Pre-Bronch | | | | | | Post-Bronch | | | | | | | | | | | | Pred | | | | | | Actual %Pred Actual | | | | | | %ChngSPIROMETRYFVC (L) | | | | | | | | | | | | 3.27 | | | | | | 2.84 86FEV1 (L) | | | | | | | | | | | | 2.56 1.96 | | | | | | 76FEV1/FVC (%) | | | | | | | | | | | | 79 69 | | | | | | 87FEF 25% (L/sec) | | | | | | 4.96 | | | | | | 3.95 79FEF 50% | | | | | | (L/sec) | | | | | | 3.78 1.65 | | | | | | 43FEF 75% (L/sec) | | | | | | | | | | | | 1.33 0.38 | | | | | | 28FEF 25-75% (L/sec) | | | | | | 2.49 | | | | | | 1.15 46FEF Max | | | | | | (L/sec) | | | | | | 6.34 5.81 | | | | | | 91FIVC (L) | | | | | | | | | | | | 2.83FIF | | | | | | 50% (L/sec) | | | | | | 4.72 | | | | | | 5.60 118FIF Max | | | | | | (L/sec) | | | | | | | | | | | | 5.67Expiratory Time | | | | | | (sec) | | | | | | 7.21Back Extrap | | | | | | Vol (L) | | | | | | 0.11Time | | | | | | To FEFmax (sec) | | | | | | | | | | | | 0.082LUNG VOLUMESSVC (L) | | | | | | | | | | | | 3.03 | | | | | | 2.94 97IC (L) | | | | | | | | | | | | 2.13 2.60 | | | | | | 122ERV (L) | | | | | | | | | | | | 0.90 0.34 | | | | | | 37FRC (pl) (L) | | | | | | | | | | | | 2.71 2.77 102RV | | | | | | (Pleth) (L) | | | | | | 1.81 | | | | | | 2.43 134TLC (Pleth) | | | | | | (L) | | | | | | 4.84 5.37 | | | | | | 110RV/TLC (Pleth) (%) | | | | | | | | | | | | 37 45 | | | | | | 122DIFFUSIONDLCOunc | | | | | | (ml/min/mmHg) | | | | | | 21.65 14.71 | | | | | | 67DLCOadj | | | | | | (ml/min/mmHg) | | | | | | 21.65 16.16 | | | | | | 74DL/VA | | | | | | (ml/min/mmHg/L) | | | | | | 4.47 3.71 | | | | | | 83VA (L) | | | | | | | | | | | | 4.84 4.35 | | | | | | 89BHT (sec) | | | | | | | | | | | | 9.65IVC (L) | | | | | | | | | | | | | | | | | | 2.66TLC (SB) (L) | | | | | | | | | | | | 4.50AIRWAYS | | | | | | RESISTANCEBLOOD GASESHgb | | | | | | (gm/dL) | | | | | | | | | | | | 10.8 Interpretation: | | | | | | INTERPRETATION: | | | | | | SPIROMETRY:There is | | | | | | borderline airflow | | | | | | obstruction based on a | | | | | | mildly reduced FEV1 and | | | | | | anFEV1/FVC ratio at the | | | | | | lower limit of normal. | | | | | | Since 03/10/2019, | | | | | | spirometry has not | | | | | | changed significantly. | | | | | | LUNG VOLUMES:Normal TLC. | | | | | | Increased RV and RV/TLC | | | | | | indicate air trapping. | | | | | | DIFFUSING CAPACITY:The | | | | | | diffusing capacity is | | | | | | within normal limits | | | | | | based on the lower limit | | | | | | ofnormal. Please note | | | | | | that there is a wide | | | | | | standard deviation for | | | | | | this test. | | | | | | CONCLUSION:The | | | | | | spirometry pattern | | | | | | demonstrates mild | | | | | | obstruction with air | | | | | | trapping,consistent with | | | | | | asthma or COPD. | | | | | | Interpreted by: GW This | | | | | | interpretation has been | | | | | | electronically signed: | | | | | | Chuy Medina | | | | | | 09/30/201910:29:36 AM | | | | + + + + + + | FVC PRE | 2.84 | 3.27 L | [facility] | | | | | | SPECIAL | | | | | | DIAGNOSTICS | | | | | | - | | | | | | PULMONARY | | | | | | FUNCTION | | + + + + + + | FVC PRE | 86 | % | [facility] | | | (%REF) | | | SPECIAL | | | | | | DIAGNOSTICS | | | | | | - | | | | | | PULMONARY | | | | | | FUNCTION | | + + + + + + | FEV1 PRE | 1.96 | 2.56 L | [facility] | | | | | | SPECIAL | | | | | | DIAGNOSTICS | | | | | | - | | | | | | PULMONARY | | | | | | FUNCTION | | + + + + + + | FEV1 PRE | 76 | % | [facility] | | | (%REF) | | | SPECIAL | | | | | | DIAGNOSTICS | | | | | | - | | | | | | PULMONARY | | | | | | FUNCTION | | + + + + + + | FEV1/FVC | 69 | 79 % | [facility] | | | PRE | | | SPECIAL | | | | | | DIAGNOSTICS | | | | | | - | | | | | | PULMONARY | | | | | | FUNCTION | | + + + + + + | FEV1/FVC | 87 | % | [facility] | | | PRE (%REF) | | | SPECIAL | | | | | | DIAGNOSTICS | | | | | | - | | | | | | PULMONARY | | | | | | FUNCTION | | + + + + + + | PEF PRE | 5.81 | 6.34 L/sec | [facility] | | | | | | SPECIAL | | | | | | DIAGNOSTICS | | | | | | - | | | | | | PULMONARY | | | | | | FUNCTION | | + + + + + + | PEF PRE | 91 | % | [facility] | | | (%REF) | | | SPECIAL | | | | | | DIAGNOSTICS | | | | | | - | | | | | | PULMONARY | | | | | | FUNCTION | | + + + + + + | [id number]% | 1.15 | 2.49 L/sec | [facility] | | | PRE | | | SPECIAL | | | | | | DIAGNOSTICS | | | | | | - | | | | | | PULMONARY | | | | | | FUNCTION | | + + + + + + | [id number]% | 46 | % | [facility] | | | PRE (%REF) | | | SPECIAL | | | | | | DIAGNOSTICS | | | | | | - | | | | | | PULMONARY | | | | | | FUNCTION | | + + + + + + | FIF50% PRE | 5.60 | 4.72 L/sec | [facility] | | | | | | SPECIAL | | | | | | DIAGNOSTICS | | | | | | - | | | | | | PULMONARY | | | | | | FUNCTION | | + + + + + + | FIF50% PRE | 118 | % | [facility] | | | (%REF) | | | SPECIAL | | | | | | DIAGNOSTICS | | | | | | - | | | | | | PULMONARY | | | | | | FUNCTION | | + + + + + + | VC PRE | 2.94 | 3.03 L | [facility] | | | | | | SPECIAL | | | | | | DIAGNOSTICS | | | | | | - | | | | | | PULMONARY | | | | | | FUNCTION | | + + + + + + | VC PRE | 97 | % | [facility] | | | (%REF) | | | SPECIAL | | | | | | DIAGNOSTICS | | | | | | - | | | | | | PULMONARY | | | | | | FUNCTION | | + + + + + + | IC PRE | 2.60 | 2.13 L | [facility] | | | | | | SPECIAL | | | | | | DIAGNOSTICS | | | | | | - | | | | | | PULMONARY | | | | | | FUNCTION | | + + + + + + | IC PRE | 122 | % | [facility] | | | (%REF) | | | SPECIAL | | | | | | DIAGNOSTICS | | | | | | - | | | | | | PULMONARY | | | | | | FUNCTION | | + + + + + + | ERV PRE | 0.34 | 0.90 L | [facility] | | | | | | SPECIAL | | | | | | DIAGNOSTICS | | | | | | - | | | | | | PULMONARY | | | | | | FUNCTION | | + + + + + + | ERV PRE | 37 | % | [facility] | | | (%REF) | | | SPECIAL | | | | | | DIAGNOSTICS | | | | | | - | | | | | | PULMONARY | | | | | | FUNCTION | | + + + + + + | FRC PL PRE | 2.77 | 2.71 L | [facility] | | | | | | SPECIAL | | | | | | DIAGNOSTICS | | | | | | - | | | | | | PULMONARY | | | | | | FUNCTION | | + + + + + + | FRC PL PRE | 102 | % | [facility] | | | (%REF) | | | SPECIAL | | | | | | DIAGNOSTICS | | | | | | - | | | | | | PULMONARY | | | | | | FUNCTION | | + + + + + + | RV PRE | 2.43 | 1.81 L | [facility] | | | | | | SPECIAL | | | | | | DIAGNOSTICS | | | | | | - | | | | | | PULMONARY | | | | | | FUNCTION | | + + + + + + | RV PRE | 134 | % | [facility] | | | (%REF) | | | SPECIAL | | | | | | DIAGNOSTICS | | | | | | - | | | | | | PULMONARY | | | | | | FUNCTION | | + + + + + + | TLC PRE | 5.37 | 4.84 L | [facility] | | | | | | SPECIAL | | | | | | DIAGNOSTICS | | | | | | - | | | | | | PULMONARY | | | | | | FUNCTION | | + + + + + + | TLC PRE | 110 | % | [facility] | | | (%REF) | | | SPECIAL | | | | | | DIAGNOSTICS | | | | | | - | | | | | | PULMONARY | | | | | | FUNCTION | | + + + + + + | RV/TLC PRE | 45 | 37 % | [facility] | | | | | | SPECIAL | | | | | | DIAGNOSTICS | | | | | | - | | | | | | PULMONARY | | | | | | FUNCTION | | + + + + + + | DLCO PRE | 14.71 | 21.65 | [facility] | | | | | ml/min/mmHg | SPECIAL | | | | | | DIAGNOSTICS | | | | | | - | | | | | | PULMONARY | | | | | | FUNCTION | | + + + + + + | DLCO PRE | 67 | % | [facility] | | | (%REF) | | | SPECIAL | | | | | | DIAGNOSTICS | | | | | | - | | | | | | PULMONARY | | | | | | FUNCTION | | + + + + + + | DLCO ADJ | 16.16 | 21.65 | [facility] | | | PRE | | ml/min/mmHg | SPECIAL | | | | | | DIAGNOSTICS | | | | | | - | | | | | | PULMONARY | | | | | | FUNCTION | | + + + + + + | DLCO ADJ | 74 | % | [facility] | | | PRE (%REF) | | | SPECIAL | | | | | | DIAGNOSTICS | | | | | | - | | | | | | PULMONARY | | | | | | FUNCTION | | + + + + + + | DLCO/VA ADJ | 3.71 | ml/min/mmHg/L | [facility] | | | PRE | | | SPECIAL | | | | | | DIAGNOSTICS | | | | | | - | | | | | | PULMONARY | | | | | | FUNCTION | | + + + + + + | DLCO/VA ADJ | 83 | % | [facility] | | | PRE (%REF) | | | SPECIAL | | | | | | DIAGNOSTICS | | | | | | - | | | | | | PULMONARY | | | | | | FUNCTION | | + + + + + + + + | Specimen | + + | | + + + + + | Narrative | Performed At | + + + | | | + + + + + + + + | Performing | Address | City/State/Zipcode | Phone Number | | Organization | | | | + + + + + | [facility] | [address] | [place], [place] | | | DIAGNOSTICS - | [address] | [address] | | | PULMONARY FUNCTION | | | | + + + + + documented in this encounter Visit Diagnoses + + | Diagnosis | + + | 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
--- OUTSIDE RECORDS SUMMARY | ~2020-03-12 | XMS | Encounter Summary ---
Demographics + + + | Address | [address] | | | [place] [address] | + + + | Home Phone | | + + + | Preferred Language | Unknown | + + + | Marital Status | Single | + + + | Worship Affiliation | NRP | + + + | Race | White | + + + | Ethnic Group | Not or | + + + Author + + + | Author | [facility] | + + + | Organization | [facility] | + + + | Address | Unknown | + + + | Phone | Unavailable | + + + Support + + +---------+ + | Name | Relationship | Address | Phone | + + +---------+ + | Claudia Cota | ECON | Unknown | | + + +---------+ + Care Team Providers + +------+ + | Care Senior Field Service Engineer Name | Role | Phone | + +------+ + | Meredith Sanchez | PCP | | + +------+ + Encounter Details +--------+ + + + + | Date | Type | Department | Care Team | Description | +--------+ + + + + | 02/16/ | Pharmacy | [facility] | | | | 2019 | Visit | [address] [facility] [address] | | | | | | [facility] [address] | | | | | | [place] [address] | | | | | | [phone] | | | +--------+ + + + [...]
--- OUTSIDE RECORDS SUMMARY | ~2020-03-12 | XMS | Encounter Summary ---
Demographics + + + | Address | [address] | | | [place] [address] | + + + | Home Phone | | + + + | Preferred Language | Unknown | + + + | Marital Status | Single | + + + | Scientology Affiliation | NRP | + + + | Race | White | + + + | Ethnic Group | Not or | + + + Author + + + | Author | [facility] | + + + | Organization | [facility] | + + + | Address | Unknown | + + + | Phone | Unavailable | + + + Support + + +---------+ + | Name | Relationship | Address | Phone | + + +---------+ + | Claudia Cota | ECON | Unknown | | + + +---------+ + Care Team Providers + +------+ + | Care Director Global Sales Name | Role | Phone | + +------+ + | Meredith Sanchez | PCP | | + +------+ + Encounter Details +--------+ + + + + | Date | Type | Department | Care Team | Description | +--------+ + + + + | 06/24/ | Pharmacy | Pharmacy @ [facility] | | | | 2019 | Visit | [address] | | | | | | [address] Mailcode: | | | | | | [facility] | | | | | | [facility], | | | | | | [address] | | | | | | [place], [place] | | | | | | [address] | | | +--------+ + + + [...]
--- OUTSIDE RECORDS SUMMARY | ~2020-03-12 | XMS | Encounter Summary ---
Demographics + + + | Address | [address] | | | [place] [address] | + + + | Home Phone | | + + + | Preferred Language | Unknown | + + + | Marital Status | Single | + + + | Judaism Affiliation | NRP | + + + | Race | White | + + + | Ethnic Group | Not or | + + + Author + + + | Author | [facility] | + + + | Organization | [facility] | + + + | Address | Unknown | + + + | Phone | Unavailable | + + + Support + + +---------+ + | Name | Relationship | Address | Phone | + + +---------+ + | Claudia Cota | ECON | Unknown | | + + +---------+ + Care Team Providers + +------+ + | Care Concession Attendant Name | Role | Phone | + +------+ + | Meredith Sanchez | PCP | | + +------+ + Reason for Visit + + + | Reason | Comments | + + + | Follow-up encounter | | + + + Consultation (Routine) +--------+--------+ + + + + | Status | Reason | Specialty | Diagnoses / | Referred By | Referred To | | | | | Procedures | Contact | Contact | +--------+--------+ + + + + | Closed | | Radiation | Diagnoses | Wil, | [facility] | | | | Oncology | MDS | Sejal Meadows, | Medicine [facility] | | | | | (myelodyspla | DO [address] | [address] | | | | | stic | [address] | [address] | | | | | syndrome) | [address] | Alex | | | | | (HCC) | [facility], [place] | Pavilion, [facility] | | | | | Procedures | [address] | floor | | | | | CONSULT TO | Phone: | [place], [place] | | | | | RADIATION | [phone] | [address] | | | | | ONCOLOGY | Fax: | Phone: | | | | | | [phone] | [phone] | | | | | | | Fax: | | | | | | | [phone] | +--------+--------+ + + + + Encounter Details +--------+---------+ + + + | Date | Type | Department | Care Team | Description | +--------+---------+ + + + | 05/20/ | Office | [facility] | Mecca Birmingham, | 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 | [facility]ics at [facility] | ACNP [address]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) | | | | [facility] [address] | (Primary Dx) | | | | [facility] for | [place], [place] | | | | | Health and Healing, | [address] | | | | | Building [address] | [phone] | | | | | [place], [place] | | | | | | [address] | | | | | | [phone] | | | +--------+---------+ + + + [...] of this encounter Patient Instructions Patient Instructions Mecca Birmingham ACNP - 05/20/2019 9:10 AM PSTFormatting of this note m ight be different from the original. Medications: Do not take your tacrolimus this morning because your kidney function is slightly elevated. We will call you this afternoon with further dose changes. When the prednisone runs out you are done. Other: I have asked for a visit this weekend to give you more fluids (if needed) and to give you m ore platelets if needed. You look amazing for just getting out of the hospital. Keep up the good work. Like we talk ed about start walking for exercise, your goal is to get up to 30 min daily. There will be days you do not want to walk, and that's okay but try to do daily. Magnesium Magnesium is important for the metabolism of many food components. It also plays a role in neuromuscular activity. You may need to increase the magnesium in your diet because of the medication you take, especially cyclosporine. A higher intake may make muscle cramps and I V doses for repletion less frequent. Magnesium is found widely in foods, but is in highest concentrations in unmilled grains and cereals, green vegetables, beans and legumes, nuts and seeds. Aim to consume > 350 mg magnesium per day. Very Good Sources >70 mg per serving Mg Magnesium Very Good Sources >70 mg per serving Mg Magnesium Almonds, dry roasted, 1 oz Cereal: 100% Bran, 1 cup Bran Buds, 1/3 cup Post Bran Flakes, 1 cup Bran Chex, 1 cup Solon Natural, 1 cup Nature Valley Granola, 1 cup 81 312 90 102 126 147 115 Post Raisin Bran, 1 cup Shredded Wheat, 2 large rectangles Cashews, dry roasted, 1 oz Pumpkin seeds, 1/2 oz Spinach, cooked, 1/2 cup Soybeans, cooked, 1/2 cup Wheat germ, toasted, 1 oz 95 80 72 75 78 74 90 Good Sources 25-70 mg per serving Mg Magnesium Good Sources 25-70 per serving Mg Magnesium Avocado, pureed, 1/2 cup Banana, 1 medium Beans, dried, cooked, 1/2 cup Bread, whole wheat, 1 slice Chocolate bar, Snickers, 2.16 oz Lisle Powder, unsweetened 1 Tbs Halibut, [place], baked/broiled, 3 oz Lentils, cooked, 1/2 cup 44 34 40-60 24 41 27 61 36 Nuts, mixed, dry roasted, 1 oz Peanuts, dry roasted, 1 oz Peanut butter, 2 Tbs Potato, baked w/ skin, 1 large Potato, baked w/o skin, 1 large Raisins, denis, 1/2 cup packed Shrimp, mixed species, 3 oz Vegetarian baked beans, 1/2 cup 64 50 50 55 50 29 31 40 documented in this encounter Progress Notes Mecca Birmingham ACNP - 05/20/2019 9:10 AM PSTFormatting of this note might be different fro m the original. 05/20/2019 [facility] Physician: Sejal De La Torre DO Hematologic Malignancy: MDS Conditioning regimen: FluCyTBI Date of transplant: 04/22/2019 Donor: CBU 1: [id number]/02 match, CBU 2: [id number]/02 match Research study: Ruperto "[id number]: A Multicenter, Randomized, Phase III Registration Tr ia of Transplantation of NiCord, Ex Vivo Expanded, UCB-derived, Stem and Progenitor Cells , vs. Unmanipulated UCB for Patients With Hematological Malignancies". She was randomized to SOC arm. 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 Work up neg for infection, but noted to have CBC s howing dropping counts. --Jun. Moved to [place] ([facility]) -- 10/07/18 showed normal chemistries, Bilirubin 1.4, [...] for D4-D7. 01/14-01/26/2019 admitted for zoster to [facility]. Vidaza held. 02/17/2019- seen at [facility] by Dr. De La Torre, no healthy siblings so cord blood is only option -consented to gamida "[id number]: A Multicenter, Randomized, Phase III Registration Tri hi of Transplantation of NiCord, Ex Vivo Expanded, UCB-derived, Stem and Progenitor Cells, vs. Unmanipulated UCB for Patients With Hematological Malignancies". She was randomized to SOC arm. --02/21-03/01 C3 aza.Tolerated well without complications. --04/15-05/18/2019 admitted to [facility] for planned flu/cy/tbi conditioned UCB on Gamida study (SOC arm). 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 Interval History: Nona Hopper is a 53 y.o. female with hx of MDS, currently day +28, s/p Flu/cy/TBI co nditioned URD cord on gamida trial -on SOC arm. Comes to clinic today for her routine scheduled visit. She is accompanied by her caregiver. Despite having a rather complicated hospital stay, Nona actually looks good in clinic, al though she feels very wiped out and fatigued. Since dc from the hospital, she feels that she is managing her meds well, and using prn radhames ropriately. 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 She states one bout of diarrhea since dc from hospital, but took 1 imodium and resolved. No new rash, and old rash completely resolved. Review of Systems: General: Denies fevers, chills, weight loss or sweats. +fatigue ENT: Denies changes in vision or double vision. Denies hearing loss, nosebleeds, nasal pedro estion, difficulty swallowing, hoarseness or sore throat. Respiratory: Denies shortness of breath, coughing up blood, excessive sputum, cough, chest discomfort or wheezing. Cardiovascular: No chest pain, lightheadedness,shortness of breath. Gastrointestinal: Denies indigestion, vomiting, + nausea, constipation, abdominal pain, +di arrhea, bloody stools or dark tarry stools. Musculoskeletal: No joint pain, swelling, stiffness, back pain, arthritis, muscle aches or muscle cramps. Skin: Denies rash. Psychological: No abnormal anxiety, depression. Remainder of ROS is otherwise negative. Current Medication List Name Sig ESCITALOPRAM 20 MG TABLET Take 1 tablet by mouth once daily. Indications: major depressive disorder FAMOTIDINE 20 MG TABLET Take 1 tablet by mouth two times daily. Indications: prevention of inflammation of stomach HYDROCORTISONE 2.5 % TOPICAL CREAM WITH PERINEAL APPLICATOR Apply to affected area three ti mes daily as needed. Wash and dry the rectal area, gently massage a small amount into the af fected area. LETERMOVIR 480 MG TABLET Take 1 tablet by mouth once daily. 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 Do not exceed max d ose of 16 mg/day. LORATADINE 10 MG TABLET Take 1 tablet by mouth once daily as needed. Indications: bone pain . MYCOPHENOLATE MOFETIL 500 MG TABLET Take 2 tablets by mouth three times daily. Take this me dication through day +60 (06/21/2019) ONDANSETRON HCL 8 MG TABLET Take 1 tablet by mouth every twelve hours as needed for nausea/ vomiting. Indications: nausea and vomiting caused by cancer drugs POSACONAZOLE 100 MG TABLET,DELAYED RELEASE Take 3 tablets by mouth once daily. Indications: prevention of fungal infection PREDNISONE 5 MG TABLET Take 1 tablet by mouth once daily for 5 doses. Indications: Engraftm ent syndrome PROCHLORPERAZINE MALEATE 5 MG TABLET Take 1-2 tablets by mouth every six hours as needed fo r nausea/vomiting. Max dose: 40 mg/day SENNOSIDES 8.6 MG-DOCUSATE SODIUM 50 MG TABLET Take 1-2 tablets by mouth every twelve hours as needed for constipation. TACROLIMUS 0.5 MG CAPSULE Effective 05/20/2019, take 1mg by mouth every morning and 1mg chirag ry evening. Combine 0.5mg and 1mg capsules to make your current dose. HOLD on days of clinic and bring with you to take AFTER your labs are drawn. Indications: prevention of graft vers us host TACROLIMUS 1 MG CAPSULE Effective 05/20/2019, take 1mg by mouth every morning and 1mg every evening. Combine 0.5mg and 1mg capsules to make your current dose. HOLD on days of clinic a nd bring with you to take AFTER your labs are drawn. Indications: prevention of graft versus host disease TRIAMCINOLONE ACETONIDE 0.1 % TOPICAL OINTMENT Apply a thin film to the affected areas twi ce daily as needed . Indications: skin rash TRIAMTERENE 37.5 MG-HYDROCHLOROTHIAZIDE 25 MG CAPSULE Take 1 capsule by mouth once daily. I ndications: high blood pressure URSODIOL 500 MG TABLET Take 1 tablet by mouth two times daily. Take this medication through day +90 (07/21/2019) Indications: prevention of veno-occulsive disease VALACYCLOVIR 500 MG TABLET Take 1 tablet by mouth two times daily. Vitals: . Vitals 05/20/2019 Systolic 107 Diastolic 63 Pulse 98 Temperature 98.1 Respirations 16 Weight 62.823 kg (138 lb 8 oz) Height (in) - Height (cm) - BMI - SpO2 97 BSA 1.67 m2 Pain Scale 0 - Zero OB Information Physical Exam: General:This is a femalein no acute distress sitting up in bed. HEENT:PERRL. Sclerae anicteric. Mucosa pink and moist. No ulcers or exudates Skin:No rashes or lesions noted. Chest:Clear to auscultation bilaterally. CV:RRR, no murmurs. [...] diff: Last 72 hours (or 3 results) Recent Labs 05/18/19 0035 05/19/19 1059 05/20/19 0832 WBC 2.07* 5.50 -- HB 8.8* 9.3* 8.6* HCT 26.4* 28.2* 25.1* PLT 25* 10* 20* NEUTROPERC 69.6 78.9* -- LYMPHPERC 11.3* 7.0* -- MONOPERC 10.4* 8.8 -- BASOPERC 0.9 0.0 -- EOSPERC 7.8* 2.6 -- Chemistries: Last 72 Hours (or 3 results): Recent Labs 05/17/19 0001 05/18/19 0035 05/19/19 1059 NA 136 135* 132* K 4.2 4.1 3.6 CL 102 101 98 BICARB 26 25 21 BUN 12 13 19 CR 0.69 0.66 1.07 GLU 88 93 162* CA 8.8 8.7 8.9 AST 13 14 11 ALT 17 17 17 AP 85 87 106* TBILI 0.5 0.5 0.7 TP 6.3* 6.2* 6.8 ALB 3.1* 3.1* 3.3* ANIONGAP 8 9 13* ANIONALBCOR 10 11 14* Lab Results Component Value Date MG 1.8 05/19/2019 Hematology: #Hematologic Malignancy: MDS Conditioning Regimen: FluCyTBI Research study: Ruperto "[id number]: A Multicenter, Randomized, Phase III Registration Trial of Transplantation of NiCord, Ex Vivo Expanded, UCB-derived, Stem and P rogenitor Cells, vs. Unmanipulated UCB for Patients With Hematological Malignancies". She wa s randomized to SOC arm. Stem cell transplant -BMT Day: 04/22/2019 -Stem Cell product: CD 34 count = 0.07 x 10 6 per kg and 0.10 x 10 6 per kg Stem Cell Day: +28 Post-transplant: -Day +21 chimerism ordered per study; PENDING --BM Bx to be completed on day +30, day +100, 6 months, and 1 year post-transplant; first BM Bx requested around AVE as was not requested with dc appts. Request sent 05/20. -also return to dr. 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 Post-SCT Considerations / Pertinent Diagnostics: -BM Bx to be completed on day +30 (requested) , day +100, 6 months, and 1 year post-transpl ant; first BM Bx scheduled for TBD. -has appt with Annika De La Torre MD as she prefers to see pt after bone marrow done- banguld for 06/16/19 -Around day + 60, we will return her to her primary attending with our BMT service, Dr. Gita bowen; first appointment scheduled for TBD. CBC reviewed and reveals anemia, thrombocytopenia r/t chemotherapy: -Antimicrobials below -See supportive care Supportive Care: Growth Factor: last dose of Neupogen given on 05/19/2019 Labs: Continue to check CBC twice weekly Transfusion parameters: -Transfuse PRBCs for HCT <21% if asymptomatic OR <24% if symptomatic -Transfuse PPH for platelet count <10,000 sooner for s/s bleeding GVHD: At this time, there is no evidence of acute qwvzx-uwxyzq-bkfm disease of the skin, gut, or liver. Prophylaxis/Treatment: Pro[facility]axis [facility]rolimus [facility] - Tacrolimus startedD-3 (goal 5 -15) -MMF 1 gm PO TID D-3 to D+60 ( to stop on 06/21/2019) #?Engraftment Syndrome: notable for weight gain, dypsnea requiring 1-2L NC, hyperbilirubine demario, and diffuse non-pruritic erythematous maculopapular rash to trunk/back and extremities ~48 hours prior to count appearance -s/p Methylpred 0.5mg/kg/day (05/05-05/09) -s/p Pred 0.25 mg/kg/d (20 mg), (05/10-05/14 ) -s/p Pred 10 mg daily (05/15-05/17) -Pred 5mg daily (05/19-04/22/2019)- then dc Acute GvHD Staging: Skin: stage 0 Gut: stage 0 Liver: stage 0 Overall Grade: 0 Ruperto Simpson phase 3 (IRB 47693) Acute GVHD Staging Complete on study visit [...] mL diarrhea/day 2 25-50% BSA 3.1-6 mg/dL 2174-8035 mL diarrhea/day 3 >50% BSA Generalized erythroderma 6.1-15 mg/dL >1500 mL diarrhea/day 4 Generalized erythroderma with bullus formation >15 mg/dL Severe abdominal pain with/without ileus Determine Differential Diagnosis: (Y/N): GVHD:n Drug Reaction:n Conditioning regimen toxicity:n Infection:n Other (describe):n (Y/N): GVHD:n Drug Reaction:n Conditioning regimen toxicity:n TPN:n Infection:n Other (describe):n (Y/N): GVHD:n Drug Reaction:n Conditioning regimen toxicity:n TPN:n Infection:n Other (describe):n (Y/N): GVHD:n Drug Reaction:n Conditioning regimen toxicity:n TPN:n Infection:n Other (describe):n Complete Values: BSA%:n Bullae (Y/N):n TBili: 0.6 24H Diarrhea Vol: na Severe abd pain (Y/N):n Ileus (Y/N):n Assign Stage: 0 0 0 0 Presumptive/ Confirmed Dx of aGVHD? (Y/N) n n n n Pulmonary: Pretransplant PFTs completed on03/10/19 showed FEV1 of76% predicted, FVC o f87% predicted and adjusted DLCO of77% predicted. Cardiovascular: Pretransplant TTE completed on 03/10/2019 showed a LVEF of 64%. #Hx/oPICC line associated DVT:Noted on US 01/17/19 involved both right and left UE.S he completed 3 months ofanticoagulationwith apixiban, end date 04/14/19. #HTN, SHACKLER: home regimen, triamterene/HCTZ. -s/p Lisinopril 5 mg PO daily (05/07-05/08) -Restarted home triamterene/HCTZ on 05/09 #Re-evaluation of cardiac function: received cytoxan during conditioning. Increase oxygen r equirements as of 04/30. (05/02) Repeat ECHO LVEF 65-70%. GI: #NIRAJ:improving -Zofran ODT 8 mg q12 hours prn -Zyprexa 5 mg qHS, started 05/09 -Compazine 5mg AC, started 05/13 -Antiemetics PRN #Hemorrhoidal pain: improving -Nifedipine 0.3%-Lidocaine 1.5% TID PRN -Proctozone 2.5% rectal cream TID PRN -Sitz baths after stooling and at least 2-3 times daily #Diarrhea:(04/25) Clostridium difficile negative. (04/25) GI path panel negative. Improvi ng. -Imodium PRN #Risk of gastritis: -Pepcid 20 mg BID #Risk for VOD:no e/o this currently -Ursodiol 500 mgPO BID through Day +90 /Renal: No acute issues Derm: #Rash: first noted 05/02, follicular rash localized to upper back with progression to diffu se, confluent maculopapular to trunk/back and all extremities with c/f hyperacute GvHD vs en graftment syndrome. Improving -(05/04) Derm consult: -Biopsy performed: sparse vacuolar dermatitis with c/f subtle GVHD -Triamcinolone 0.1% oint BID to affected areas, started 05/04 -Methylpred 0.5mg/kg/day (05/05-05/09) -Pred 0.25 mg/kg/d (20 mg), (05/10-05/14 ) -Pred 10 mg daily (05/15-05/17), -Pred 5mg daily (05/18-05/23 ) -Atarax 10 mg PO q6hrs PRN for itching, started 05/07 Psych: #Depression:Stable, continue home SSRI. - Lexapro 20 mg PO daily MSK: #Myaglia/Arthralgia: -Claritin 10 mg PO daily, started 05/05 .Infectious Disease: No acute issues. Afebrile and no evidence of acute infection at this time. The patient is reminded to take her temperature regularly (3-4 x daily) and to call immediately for a temp erature of 100.4 or greater. #Herpes Zoster, recent history: Noted in December, now s/p treatment with IV acyclovirfrom approx 01/10 through 01/16 then transitioned to valacyclovir 1g TID to complete an additional 7dcourse (extended for new lesions).She will continue on valacyclovir(rather than acyc lovir)through day +365 post transplant. -Valacyclovir 500mg BID Antiviral: The CMV will be followed weekly for reactivation by PCR. --Viral surveillance: CMV biweekly HHV6 and EBV weekly -EBV- 05/14- negative # HHv6- 116,000 colonies from 05/14. Discussed with ID - will follow -pt asymptomatic Lab Results Component Value Date CMVQUANTPCR Undetected 05/16/2019 CMVQUANTPCR Undetected 05/13/2019 CMVQUANTPCR Undetected 05/07/2019 CMVQUANTPCR Undetected 04/30/2019 Antifungal: Posaconazole for antifungal prophylaxis through day +100 PCP proph: Pentamidine IV for PCP prophylaxis given on 05/13/2019. Bactrim for PCP coverage will be started between day +30-+40 if platelets are low will give Pentamidine 300 mg IV m onthly until platelets recover. Toxo: Pt is toxo negative, no further testing required. Fluid/Nutrition/Lytes: Nutrition: Current diet -- low bacteria. Encourage po intake as tolerated with a goal of co nsistently drinking at least 2L calorie containing fluids per day. IV Fluid: 1L NS IVPB in clinic prn Lytes: Continue to check chemistries twice weekly. Replace per supportive care protocol. Plan: -1L of NS -Kdur 40 meq po -Return to clinic 05/22/19 and then 05/24 to see [facility] , sooner prn. Patient Instructions Medications: Do not take your tacrolimus this morning because your kidney function is slightly elevated. We will call you this afternoon with further dose changes. When the prednisone runs out you are done. Other: I have asked for a visit this weekend to give you more fluids (if needed) and to give you m ore platelets if needed. You look amazing for just getting out of the hospital. Keep up the good work. Like we talk ed about start walking for exercise, your goal is to get up to 30 min daily. There will be days you do not want to walk, and that's okay but try to do daily. Magnesium Magnesium is important for the metabolism of many food components. It also plays a role in neuromuscular activity. You may need to increase the magnesium in your diet because of the medication you take, especially cyclosporine. A higher intake may make muscle cramps and I V doses for repletion less frequent. Magnesium is found widely in foods, but is in highest concentrations in unmilled grains and cereals, green vegetables, beans and legumes, nuts and seeds. Aim to consume > 350 mg magnesium per day. Very Good Sources >70 mg per serving Mg Magnesium Very Good Sources >70 mg per serving Mg Magnesium Almonds, dry roasted, 1 oz Cereal: 100% Bran, 1 cup Bran Buds, 1/3 cup Post Bran Flakes, 1 cup Bran Chex, 1 cup [place] Natural, 1 cup Nature Valley Granola, 1 cup 81 312 90 102 126 147 115 Post Raisin Bran, 1 cup Shredded Wheat, 2 large rectangles Cashews, dry roasted, 1 oz Pumpkin seeds, 1/2 oz Spinach, cooked, 1/2 cup Soybeans, cooked, 1/2 cup Wheat germ, toasted, 1 oz 95 80 72 75 78 74 90 Good Sources 25-70 mg per serving Mg Magnesium Good Sources 25-70 per serving Mg Magnesium Avocado, pureed, 1/2 cup Banana, 1 medium Beans, dried, cooked, 1/2 cup Bread, whole wheat, 1 slice Chocolate bar, Snickers, 2.16 oz Lisle Powder, unsweetened 1 Tbs Halibut, [place], baked/broiled, 3 oz Lentils, cooked, 1/2 cup 44 34 40-60 24 41 27 61 36 Nuts, mixed, dry roasted, 1 oz Peanuts, dry roasted, 1 oz Peanut butter, 2 Tbs Potato, baked w/ skin, 1 large Potato, baked w/o skin, 1 large Raisins, denis, 1/2 cup packed Shrimp, mixed species, 3 oz Vegetarian baked beans, 1/2 cup 64 50 50 55 50 29 31 40 [facility] [address] [facility] Mailcode: [place] [address] documented in this en counter Plan of Treatment Not on filedocumented as of this encounter Results TACROLIMUS, WHOLE BLOOD (05/24/2019 9:36 AM PST) + +-------+ + + + | Component | Value | Ref Range | Performed | Pathologist | | | | | At | Signature | + +-------+ + + + | TACROLIMUS | 7.6 | 5.0 - 15.0 | [facility] | | | ([address] [facility]) | | ng/mL | LABORATORY | | | | | | SERVICES, | | | | | | SPECIAL IMM | | | | | | + COAG | | + +-------+ + + + + + | Specimen | + + | Blood - Blood | | (substance) | + + + + + | Narrative | Performed At | + + + | Test performed by immunoassay using [employer] Cementer i2000. . | [facility] | | Samples for analysis of Tacrolimus should be collected 30 minutes to 1 | LABORATORY | | hour prior to the next dose so that the measured concentration of | SERVICES, | | drug represents trough levels. Some other factors influencing | SPECIAL IMM + | | therapeutic range, dose administered, and result interpretation | COAG | | include time since transplantation, the organ transplanted, | | | co-administration of other immunosuppressants and interaction with | | | other drugs that may increase or decrease Tacrolimus concentrations. | | + + + + + + + + | Performing | Address | City/State[facility] | Phone Number | | Organization | | | | + + + + + | [facility] | [address] | [place] [address] | | | SPECIAL M[facility] | [address] | | | | IMM + COAG | | | | + + + + + CMV PCR QUANTITATION, PLASMA (05/24/2019 9:36 AM PST) + + + + + + | Component | Value | Ref Range | Performed | Pathologist | | | | | At | Signature | + + + + + + | CMV DNA | Undetected | Undetected, | [facility] | | | QUANTITATIO | | Undetected [...] 2 fold may not reflect true | [facility] | | biological changes and must [...] | | | characteristics determined by the [facility] | | | [facility]. It has not been cleared or approved by | | | the Food and Drug Administration. FDA approval is not required for | | | clinical use of this test, and therefore validation was done as | | | required under the requirements of the Clinical Laboratory Improvement | | | Act of 1988. The [facility] | | | Diagnostic Center is a fully licensed and/or accredited clinical | | | laboratory under CLIA, CAP, and the [facility]. | | + + + + + + + + | Performing | Address | City/State/Zipcode | Phone Number | | Organization | | | | + + + + + | [facility] | [address] | [place] [address] | | | DIAGNOSTIC | [address] | | | | LABORATORIES | | | | + + + + + [facility] PHOSPHORUS, PLASMA (05/24/2019 9:36 AM PST) + +-------+ + + + | Component | Value | Ref Range | Performed | Pathologist | | | | | At | Signature | + +-------+ + + + | PHOSPHORUS, | 3.2 | 2.4 - 4.7 mg/dL | [facility] | | | PLASMA | | | LABORATORY | | | (LAB) | | | SERVICES, | | | | | | [facility] | | | | | | HEALTH [...] | + + + + + | [facility] | [address] | [place] [address] | | | SERVICES, [facility] | | | | | HE[facility] + HEALING | | | | + + + + + [facility] - LDH TOTAL, PLASMA (05/24/2019 9:36 AM PST) + +---------+ + + + | Component | Value | Ref Range | Performed | Pathologist | | | | | At | Signature | + +---------+ + + + | LD TOTAL, | 127 | <=250 U/L | [facility] | | [...] + | [facility] | [address] | [place] [address] | | | [facility] | | | | [facility] + HEALING | | | | + + + + + CH - COMPLETE METABOLIC SET (05/24/2019 9:36 AM PST) + + + + + + | Component | Value | Ref Range | Performed | Pathologist | | | | | At | Signature | + + + + + + | GLUCOSE, | 135 (H) | 70 - 99 mg/dL | [facility] | | | PLASMA | | | LABORATORY | | | (LAB) | | | SERVICES, | | | | | | [facility] | [facility] + | | | | | | [facility]ALING | | + + + + + + | BUN, PLASMA | 15 | 6 - 20 mg/dL | [facility] | | | (LAB) | | | LABORATORY | | | | | | SERVICES, | | | | | | [facility] | [facility] + | | | | | | HEALING | | + + + + + + | CREATININE | 1.13 (H) | 0.60 - 1.10 | [facility] | | | PLASMA | | mg/dL | LABORATORY | | | (LAB) | | | SERVICES, | | | | | | [facility] | [facility] | [facility] + | | | | | | HEALING | | + + + + + + | EGFR | >60 | >60 mL/min | [facility] | | | - | | | LABORATORY | | | ESTONIAN | | | SERVICES, | | | | | | [facility] | [facility] + | | | | | | HEALING | | + + + + + + | EGFR NON | 50 (L) | >60 mL/min | [facility] | | | -RENAE | | | LABORATORY | | | RICAN | | | SERVICES, | | | | | | [facility] | [facility] + | | | | | | HEALING | | + + + + + + | SODIUM, | 133 (L) | 136 - 145 | [facility] | | | PLASMA | | mmol/L | LABORATORY | | | (LAB) | | | SERVICES, | | | | | | [facility] | | [facility] + | | | | | | HEALING | | + + + + + + | POTASSIUM, | 3.6 | 3.4 - 5.0 | [facility] | | | PLASMA | | mmol/L | LABORATORY | | | (LAB) | | | SERVICES, | | | | | | [facility] | | [facility] + | | | | | | HEALING | | + + + + + + | CHLORIDE, | 98 | 97 - 108 mmol/L | [facility] | | | PLASMA | | | LABORATORY | | | (LAB) | | | SERVICES, | | | | | | [facility] | | [facility] + | | | | | | HEALING | | + + + + + + | TOTAL CO2, | 25 | 21 - 32 mmol/L | [facility] | | | PLASMA | | | LABORATORY | | | (LAB) | | | SERVICES, | | | | | | [facility] | | | | [facility] + | | | | | | HEALING | | + + + + + + | CALCIUM, | 8.8 | 8.6 - 10.2 | [facility] | | | PLASMA | | mg/dL | LABORATORY | | | (LAB) | | | SERVICES, | | | | | | [facility] | | [facility] + | | | | | | HEALING | | + + + + + + | CALCIUM(ALB | 9.5 | 8.6 - 10.2 | [facility] | | | CORRECTED) | | mg/dL | LABORATORY | | | | | | SERVICES, | | | | | | [facility] | | | | [facility] + | | | | | | HEALING | | + + + + + + | BILIRUBIN | 0.5 | 0.3 - 1.2 mg/dL | [facility] | | | TOTAL | | | LABORATORY | | | | | | SERVICES, | | | | | | [facility] | | | | [facility] + | | | | | | HEALING | | + + + + + + | TOTAL | 6.3 (L) | 6.4 - 8.2 g/dL | [facility] | | | PROTEIN, | | | LABORATORY | | | PLASMA | | | SERVICES, | | | (LAB) | | | [facility] | | | | [facility] + | | | | | | HEALING | | + + + + + + | ALBUMIN, | 3.1 (L) | 3.5 - 4.7 g/dL | [facility] | | | PLASMA | | | LABORATORY | | | (LAB) | | | SERVICES, | | | | | | [facility] | | [facility] | [facility] + | | | | | | HEALING | | + + + + + + | ALK PHOS | 108 (H) | 42 - 98 U/L | [facility] | | | | | | LABORATORY | | | | | | SERVICES, | | | | | | [facility] | [facility] + | | | | | | HEALING | | + + + + + + | AST(SGOT) | 12 | <=41 U/L | [facility] | | | | | | LABORATORY | | | | | | SERVICES, | | | | | | [facility] | | | [facility] + | | | | | | HEALING | | + + + + + + | ALT (SGPT) | 16 | <=60 U/L | [facility] | | | | | | LABORATORY | | | | | | SERVICES, | | | | | | [facility] | | | | | [facility] + | | | | | | HEALING | | + + + + + + | ANION GAP | 10 | 4 - 11 mmol/L | [facility] | | | | | | LABORATORY | | | | | | SERVICES, | | | | | | [facility] | | [facility] + | | | | | | HEALING | | + + + + + + | ANION | 12 (H) | 4 - 11 mmol/L | [facility] | | | GAP(ALB | | | LABORATORY | | | CORRECTED) | | | SERVICES, | | | | | | [facility] | | | | | [facility] + | | | | | | HEALING | | + + + + + + | POTASSIUM | No Hemo | | [facility] | | | CMNT | | | LABORATORY | | | | | | SERVICES, | | | | | | [facility] | [facility] | | [facility] + | | | | | | HEALING | | + + + + + + | BILI T CMNT | No Hemo | | [facility] | | | | | | LABORATORY | | | | | | SERVICES, | | | | | | [facility] | [facility] | | | | [facility] + | | | | | | HEALING | | + + + + + + | AST CMNT | [...] MDRD equation recommended by the National | [facility] | | Kidney Disease Education Program. Estimated [...] | + + + + + | [facility] | [address] | [place] [address] | | | [facility] | | | | | HEALTH + HEALING | | | | + + + + + [facility] - MAGNESIUM, PLASMA (05/24/2019 9:36 AM PST) + +---------+ + + + | Component | Value | Ref Range | Performed | Pathologist | | | | | At | Signature | + +---------+ + + + | MAGNESIUM,P | 1.3 (L) | 1.6 - 2.6 mg/dL | [facility] | | | LASMA | | | LABORATORY | | | | | | [facility] | | | | | | [facility] | | | | | | [...] | + + + + + | [facility] | [address] | [place] [address] | | | SERVICES, [place] | | | | | HEALTH + HEALING | | | | + + + + + VERITO-LORENZO VIRUS PCR, PLASMA (05/24/2019 9:36 AM PST) + + + + + + | Component | Value | Ref Range | Performed | Pathologist | | | | | At | Signature | + + + + + + | EBV QUANT | Undetected | Undetected, | [facility] | | | BY PCR, | | Indeterminate, | DIAGNOSTIC | | | PLASMA | | Undetected - | | | | | | See Below | LABORATORIE | | | | | | S | | + + + + + + + + | Specimen | + + | Blood - Blood | | (substance) | + + + + + | Narrative | Performed At | + + + | As per your request, we have completed a quantitative polymerase | [facility] | | chain reaction (PCR) based study to quantitatively detect the presence | DIAGNOSTIC | | and amount of Verito-Lorenzo virus (EBV) DNA. For this assay, | LABORATORIES | | plasma-, body fluid-, or blood-derived DNA is PCR amplified with | | | primers from the BNRF1 gene of EBV. The amplification product is | | | then detected and quantitated in a real-time PCR instrument using a | | | fluorescent EBV-specific hybridization probe. EBV quantitation is | | | accomplished with well-characterized external quantitation standards | | | to generate a standard quantitation curve. To control for the | | | integrity and amplifiability of the sample, the same DNA is amplified | | | using primers and probes to a spiked internal control DNA. The | | | quantitative PCR data from the patient and control samples has been | | | examined and the clinical interpretation is detailed below. The | | | detection limit of this viral load assay extends down to approximately | | | 250 International (IU) of EBV DNA per mL. These results are most | | | likely indicative of the absence of active EBV infection and the | | | absence of EBV viremia. These results do not, however, rule out the | | | presence of low-level EBV viremia below the assay's lower sensitivity | | | limit of ~ 250 EBV DNA IU per mL. This test was developed and its | | | performance characteristics determined by the [facility] | | | Diagnostics Center. It has not been cleared or approved by the Food | | | and Drug Administration. FDA approval is not required for clinical | | | use of this test, and therefore validation was done as required under | | | the requirements of the Clinical Laboratory Improvement Act of 1988. | | | The [facility] is a fully licensed and/or accredited clinical laboratory | | | under CLIA, CAP, and the [facility]. References: 1) | | | Phong et al. Laboratory assays for EBV-related disease. J Molec | | | Diagn 10: 279-292, 2008. 2) Khalida et al. EBV viral load and | | | disease prediction in a large cohort of allogeneic stem cell | | | transplant recipients. Clin Infect Dis 45: 1305-9, 2006. 3) | | | Manjula SD, Barrera T, Bailee P, Isaura SK, Miguel A. Herpesvirus | | | prevalence and viral load in healthy blood donors by quantitative | | | real-time polymerase chain reaction. Transfusion 2008;48:2176-6329. | | | 4) Bassam BEARDEN, Genny CASAS, Félix I, van keshia Bij W, et al. | | | Frequent monitoring of Verito-Lorenzo virus DNA load in unfractionated | | | whole blood is essential for early detection of posttransplant | | | lymphoproliferative disease in high-risk patients. Blood | | | 2000;97(5):8068-4320. | | + + + + + + + + | Performing | Address | City/State/Zipcode | Phone Number | | Organization | | | | + + + + + | [facility] | [address] | [place] [address] | | | DIAGNOSTIC | [address] | | | | LABORATORIES | | | | + + + + + HUMAN HERPES VIRUS 6 PCR (PLASMA OR CSF) (05/24/2019 9:36 AM PST) + + + + + + | Component | Value | Ref Range | Performed | Pathologist | | | | | At | Signature | + + + + + + | SOURCE, INF | Not ProvidedComment: | | [facility] | | | SER/PCR | Specimen source was not | | REG UNIV | | | | provided. Please refer | | PTH - [facility] | | | | to the [facility] | | | | | | Test Directory for | | | | | | validated specimen | | | | | | source information: | | | | | | [email or web address] | | | | | | esting. Interpret | | | | | | results with caution. | | | | + + + + + + | HUMAN | <1000 | cpy/mL | [facility] | | | HERPES | | | REG UNIV | | | VIRUS 6 PCR | | | PTH - [facility] | | + + + + + + | INTERPRETAT | Not DetectedComment: | Not Detected | [facility] | | | ION - HHV6 | Performed by [facility] | | REG UNIV | | | QUANT | Laboratories,[address] | | PTH - INT[facility] | | | | [place] [address] | | | | | | [phone] | | | | | | Zeferino montelongo MD, | | | | | | Lab. Director | | | | + + + + + + | HHV6 LOG | <3.0Comment: | log | [facility] | | | | INTERPRETIVE | | REG UNIV | | | | INFORMATION: Human | | PTH - [facility] | | | | Herpesvirus 6 by | | | | | | Quantitative PCR The | | | | | | quantitative range of | | | | | | this assay is 3.0-6.0 | | | | | | log copies/mL | | | | | | (1,000-999,000 | | | | | | copies/mL). A negative | | | | | | result (less than 3.0 | | | | | | log copies/mL or less | | | | | | than 1,000 copies/mL) | | | | | | does not rule out the | | | | | | presence of PCR | | | | | | inhibitors in the | | | | | | patient specimen or HHV6 | | | | | | DNA in concentrations | | | | | | below the level of | | | | | | detection of the assay. | | | | | | Inhibition may also lead | | | | | | to underestimation of | | | | | | viral quantitation. No | | | | | | international standard | | | | | | is currently available | | | | | | for calibration of this | | | | | | assay. Caution should be | | | | | | taken when interpreting | | | | | | results generated by | | | | | | different assay | | | | | | methodologies. | | | | | | Test developed and | | | | | | characteristics | | | | | | determined by [facility] | | | | | | Laboratories. See | | | | | | Compliance Statement A: | | | | | | [employer]/CS | | | | + + + + + + | HHV6 TYPE | Not DeterminedComment: | | [facility] | | | | Sample is negative for | | REG UNIV | | | | HHV6 nucleic acid | | PTH - [facility] | | | | therefore, viral type | | | | | | cannot be determined. | | | | + + + + + + + + | Specimen | + + | | + + + + + + + | Performing | Address | City/State/Zipcode | Phone Number | | Organization | | | | + + + + + | [facility] | [address] | [place], [place] | | | UNIV PTH - INT[facility] | | [address] | | + + + + + CMV PCR QUANTITATION, PLASMA (05/20/2019 8:32 AM PST) + + + + + + [...] 2 fold may not reflect true | [facility] | | biological changes and must [...] | | | characteristics determined by the [facility] | | | Molecular Diagnostic Center. It has not been cleared or approved by | | | the Food and Drug Administration. FDA approval is not required for | | | clinical use of this test, and therefore validation was done as | | | required under the requirements of the Clinical Laboratory Improvement | | | Act of 1988. The [facility] | | | Diagnostic Center is a fully licensed and/or accredited clinical | | | laboratory under CLIA, CAP, and the [facility]. | | + + + + + + + + | Performing | Address | City/State/Zipcode | Phone Number | | Organization | | | | + + + + + | [facility] | [address] | [place] [address] | | | DIAGNOSTIC | [address] | | | | LABORATORIES | | | | + + + + + TACROLIMUS, WHOLE BLOOD (05/20/2019 8:32 AM PST) + +-------+ + + + | Component | Value | Ref Range | Performed | Pathologist | | | | | At | Signature | + +-------+ + + + | TACROLIMUS | 12.4 | 5.0 - 15.0 | [facility] | | | ([address]) | | ng/mL | LABORATORY | | | | | | SERVICES, | | | | | | SPECIAL IMM | | | | | | + COAG | | + +-------+ + + + + + | Specimen | + + | Blood - Blood | | (substance) | + + + + + | Narrative | Performed At | + + + | Test performed by immunoassay using [employer] Cementer i2000. . | [facility] | | Samples for analysis of Tacrolimus should be collected 30 minutes to 1 | LABORATORY | | hour prior to the next dose so that the measured concentration of | SERVICES, | | drug represents trough levels. Some other factors influencing | SPECIAL IMM + | | therapeutic range, dose administered, and result interpretation | [facility] | | include time since transplantation, the organ transplanted, | | | co-administration of other immunosuppressants and interaction with | | | other drugs that may increase or decrease Tacrolimus concentrations. | | + + + + + + + + | Performing | Address | City/State/Zipcode | Phone Number | | Organization | | | | + + + + + | [facility] | [address] | [place] [address] | | | SERVICES, SPECIAL | [address] | | | | IMM + [place]AG | | | | + + + + + [facility] - PHOSPHORUS, PLASMA (05/20/2019 8:32 AM PST) + +-------+ + + + | Component | Value | Ref Range | Performed | Pathologist | | | | | At | Signature | + +-------+ + + + | PHOSPHORUS, | 3.0 | 2.4 - 4.7 mg/dL | [facility] [...] LABORATORY | [address] | [place] [address] | | | [facility] FOR | | | | | HEALTH + HEALING | | | | + + + + + [facility] - MAGNESIUM, PLASMA (05/20/2019 8:32 AM PST) + +---------+ + + + | Component | Value | Ref Range | Performed | Pathologist | | | | | At | Signature | + +---------+ + + + | MAGNESIUM,P | 1.5 (L) | 1.6 - 2.6 mg/dL | [facility] | | | LASMA | | | LABORATORY | | | | | | [facility] | | | | | | [facility] | | | | | | [...] LABORATORY | [address] | [place] [address] | | | [facility] | | | | | HEALTH + HEALING | | | | + + + + + [facility] - LDH TOTAL, PLASMA (05/20/2019 8:32 AM PST) + +---------+ + + + | Component | Value | Ref Range | Performed | Pathologist | | | | | At | Signature | + +---------+ + + + | LD TOTAL, | 153 | <=250 U/L | [facility] | | [...] SERVICES, | | | | | | [place] [facility] | | | | | | [...] [facility] | [address] | [place] [address] | | | [facility] | | | | | HEALTH + HEALING | | | | + + + + + [facility] - COMPLETE METABOLIC SET (05/20/2019 8:32 AM PST) + + + + + + | Component | Value | Ref Range | Performed | Pathologist | | | | | At | Signature | + + + + + + | GLUCOSE, | 165 (H) | 70 - 99 mg/dL | [facility] | | | PLASMA | | | LABORATORY | | | (LAB) | | | SERVICES, | | | | | | [facility] | | | | | | HE[facility] + | | | | | | HEALING | | + + + + + + | BUN, PLASMA | 22 (H) | 6 - 20 mg/dL | [facility] | | | (LAB) | | | LABORATORY | | | | | | SERVICES, | | | | | | [facility] | | | | | | HE[facility] + | | | | | | HEALING | | + + + + + + | CREATININE | 1.43 (H) | 0.60 - 1.10 | [facility] | | | PLASMA | | mg/dL | LABORATORY | | | (LAB) | | | SERVICES, | | | | | | [facility] | | | | | | HE[facility] + | | | | | | HEALING | | + + + + + + | EGFR | 46 (L) | >60 mL/min | [facility] | | | - | | | LABORATORY | | | ESTONIAN | | | SERVICES, | | | | | | [facility] | | | | | | HE[facility] + | | | | | | HEALING | | + + + + + + | EGFR NON | 38 (L) | >60 mL/min | [facility] | | | -RENAE | | | LABORATORY | | | RICAN | | | SERVICES, | | | | | | [facility] | | | | | | HE[facility] + | | | | | | HEALING | | + + + + + + | SODIUM, | 135 (L) | 136 - 145 | [facility] | | | PLASMA | | mmol/L | LABORATORY | | | (LAB) | | | SERVICES, | | | | | | [facility] | | | | | | HEALTH + | | | | | | HEALING | | + + + + + + | POTASSIUM, | 3.2 (L) | 3.4 - 5.0 | [facility] | | | PLASMA | | mmol/L | LABORATORY | | | (LAB) | | | SERVICES, | | | | | | [facility] | | | | | | HE[facility] + | | | | | | HEALING | | + + + + + + | CHLORIDE, | 100 | 97 - 108 mmol/L | [facility] | | | PLASMA | | | LABORATORY | | | (LAB) | | | SERVICES, | | | | | | [facility] | | | | | | HE[facility] + | | | | | | HEALING | | + + + + + + | TOTAL CO2, | 21 | 21 - 32 mmol/L | [facility] | | | PLASMA | | | LABORATORY | | | (LAB) | | | SERVICES, | | | | | | [facility] | | | | | | HE[facility] + | | | | | | HEALING | | + + + + + + | CALCIUM, | 8.6 | 8.6 - 10.2 | [facility] | | | PLASMA | | mg/dL | LABORATORY | | | (LAB) | | | SERVICES, | | | | | | [facility] | | | | | | HE[facility] + | | | | | | HEALING | | + + + + + + | CALCIUM(ALB | 9.2 | 8.6 - 10.2 | [facility] | | | CORRECTED) | | mg/dL | LABORATORY | | | | | | SERVICES, | | | | | | [facility] | | | | | | HE[facility] + | | | | | | HEALING | | + + + + + + | BILIRUBIN | 0.6 | 0.3 - 1.2 mg/dL | [facility] | | | TOTAL | | | LABORATORY | | | | | | SERVICES, | | | | | | [facility] | | | | | | HE[facility] + | | | | | | HEALING | | + + + + + + | TOTAL | 6.3 (L) | 6.4 - 8.2 g/dL | [facility] | | | PROTEIN, | | | LABORATORY | | | PLASMA | | | SERVICES, | | | (LAB) | | | [facility] | | | | | | HE[facility] + | | | | | | HEALING | | + + + + + + | ALBUMIN, | 3.2 (L) | 3.5 - 4.7 g/dL | [facility] | | | PLASMA | | | LABORATORY | | | (LAB) | | | SERVICES, | | | | | | [facility] | | | | | | [facility] + | | | | | | HEALING | | + + + + + + | ALK PHOS | 106 (H) | 42 - 98 U/L | [facility] | | | | | | LABORATORY | | | | | | SERVICES, | | | | | | [facility] | | | | | | [facility] + | | | | | | HEALING | | + + + + + + | AST(SGOT) | 12 | <=41 U/L | [facility] | | | | | | LABORATORY | | | | | | SERVICES, | | | | | | [facility] | | | | | | [facility] + | | | | | | HEALING | | + + + + + + | ALT (SGPT) | 17 | <=60 U/L | [facility] | | | | | | LABORATORY | | | | | | SERVICES, | | | | | | [facility] | | | | | | HEALTH + | | | | | | HEALING | | + + + + + + | ANION GAP | 14 (H) | 4 - 11 mmol/L | [facility] | | | | | | LABORATORY | | | | | | SERVICES, | | | | | | [facility] | | | | | | HE[facility] + | | | | | | HEALING | | + + + + + + | ANION | 16 (H) | 4 - 11 mmol/L | [facility] | | | GAP(ALB | | | LABORATORY | | | CORRECTED) | | | SERVICES, | | | | | | [facility] | | | | | | HE[facility] + | | | | | | HEALING | | + + + + + + | POTASSIUM | No Hemo | | [facility] | | | CMNT | | | LABORATORY | | | | | | SERVICES, | | | | | | [facility] | | | | | | HEALTH + | | | | | | HEALING | | + + + + + + | BILI T CMNT | No Hemo | | [facility] | | | | | | LABORATORY | | | | | | SERVICES, | | | | | | [facility] | | | | | | HE[facility] + | | | | | | HEALING | | + + + + + + | AST CMNT | [...] MDRD equation recommended by the National | [facility] | | Kidney Disease Education Program. Estimated [...] + + | Performing | Address | City/State[facility] | Phone Number | | Organization | | | | + + + + + | [facility] | [address] | [place] [address] | | | SERVICES, [facility] | | | | | HEALTH + HEALING | | | | + + + + + documented in this encounter Visit Diagnoses + + | Diagnosis | + + | MDS (myelodysplastic syndrome) (HCC) - Primary Myelodysplastic syndrome, unspecified | + + documented in this encounter
--- OUTSIDE RECORDS SUMMARY | ~2020-03-12 | XMS | Encounter Summary ---
Demographics + + + | Address | [address] | | | [place] [address] | + + + | Home Phone | | + + + | Preferred Language | Unknown | + + + | Marital Status | Single | + + + | Caodaism Affiliation | NRP | + + + [...] Phone | + + +---------+ + | Claduia Cota | ECON | Unknown | | + + +---------+ + Care Team Providers + +------+ + | Care Superannuation Clerk Name | Role | Phone | + +------+ + | Meredith Sanchez | PCP | | + +------+ + Reason for Visit Intake Referral (Routine) +--------+---------+ + + + + | Status | Reason | Specialty | Diagnoses / | Referred By | Referred To | | | | | Procedures | Contact | Contact | +--------+---------+ + + + + | Closed | Other | Hematology | Diagnoses | | Wil, | | | | 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, | Sejal Meadows, | | | | | 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, | DO [address] | | | | | excess of | MD [address] | [address] | | | | | blasts 2 | Margarito Daily | Melly Lujan | | | | | EVALUATE FOR | Jermaine, | [place], [place] | | | | | HDCT ALLO | [place] [address] | [address] | | | | | BMT FOR RAEB | Phone: | Phone: | | | | | 2 | [phone] | [phone] | | | | | | Fax: | Fax: | | | | | | [phone] | [phone] | +--------+---------+ + + + + Encounter Details +--------+---------+ + + + | Date | Type | Department | Care Team | Description | +--------+---------+ + + + | 02/17/ | Office | [facility] | Sejal De La Torre | 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 | Clinics at S | N, DO [address]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) | | | | [place] [address] | (Primary Dx) | | | | [facility] | [place], [place] | | | | | [facility], | [address] | | | | | Building [address] | [phone] | | | | | [place], [place] | | | | | | [address] | | | | | | [phone] | | | +--------+---------+ + + + [...] + + + | Blood Pressure | 151/85 | 02/17/2019 11:54 AM | | | | | PDT | | + + + + + | Pulse | 75 | 02/17/2019 11:54 AM | | | | | PDT | | + + + + + | Temperature | 36.9 C (98.4 F) | 02/17/2019 11:54 AM | | | | | PDT | | + + + + + | Respiratory Rate | - | - | | + + + + + | Oxygen Saturation | 98% | 02/17/2019 11:54 AM | | | | | PDT | | + + + + + | Inhaled Oxygen | - | - | | | Concentration | | | | + + + + + | Weight | 74.8 kg (164 lb 12.8 | 02/17/2019 11:54 AM | | | | oz) | PDT | | + + + + + | Height | - | - | | + + + + + | Body Mass Index | 30.14 | 01/14/2019 3:08 PM | | | | | PDT | | + + + + + [...] of this encounter Patient Instructions Patient Instructions Sejal De La Torre DO - 02/17/2019 12:00 PM PDTIt was great to see yo u today. We recommend 500 mg twice daily of valacyclovir Please get your labs on the way out today. You consented to the Anneida study looking at expanded cord transplant vs standard cord bloo d transplant and will be called with next steps for screening. Plan to start another cycle of chemotherapy next week locally. 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 SHe presents for continued management of h er MDS. The patient has a past medical history that includes uterine fibroids and fibroid re moval from the left breast. Her hematogical history dates back to 2015 when she noted progre ssive fatigue. 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 She was working 6 days per week and thought she was working too hard. She left her job in August 2017 to give herself some time to feel better. She had been to various physicians in [place] for fatigue without answers. In January 15, she developed fevers up to 104. She was tested for lyme disease, rheumatological c onditions which were all negative. She began to notice that her counts were dropping. She re located to [place] from [place] to live with her niece in 06/2018. She saw a local PA in [facility] 07/2018 Meredith Sanchez who did further testing. Labs on 10/07/18 showed normal chem istries, Bilirubin 1.4, hepatitis negative, ESR elevated at 174 with RA, RIOS C3/C4 negative. CBC showed WBC 2.4, Hb 10.8, Plt 166K, ANC 1529. She was referred to Dr. Sequeira (medic al oncology) on 10/29. Bone marrow biopsy was performed on 11/05 showing hypercellular marrow ( 70%) with 18% by morphology and 26% on flow. Mild erythroid hyperplasia and megakaryocytic a typia. Blast immunophenotype was positive for CD33, CD45 dim, CD34, CD15, CD117, CD 11c, MPO . 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 Cytogenetics were normal. MDS and AML FISH panel was negative. NGS panel was negative for FLT3, NPM1, CEBPA, c-KIT, IDH1, IDH2, TP53. She started Vidaza locally on December 24 however developed a rash to the SQ injec tion and missed D3, dexamethasone was added for D4-D7. She lives in a travel trailer at her niece's house. Her niece has 5 dogs, 2 chicken, 3 cats and 1 ferret. She is applying for [employer] ability and not currently working. Her niece owns a [employer] and she helps out as needed. She has no healthy siblings. One brother in [place] is an alcoholic. Older sister [facility] due to vascular dementia and severe diabetes. Since my last visit with iris Castellano he was admitted to the hospital 01/14-01/26 for zoster infection, her AZA has been held for last 1 month due to ongoing issues with zoster lesions. She was initially treated with IV acyclovir from approx 01/10 through 01/16 then transitioned to valacyclovir 1g TID to complete an additional 7d then decreased to 500mg BID. Cord blood is only option and interested in [facility] Since I last saw Nona, she developed tiny blisters in the area of her shingles very short ly after decreasing to prophylactic dose. Valcyclovir was increased back to 1g TID by her [facility] oncologist, Dr. Sequeira which she has been on for the last 3 weeks. No new lesions n oted in the last 2 weeks. She is supposed to start another cycle #3 of AZA next week and jennifer l transition to valtrex 500 mg BID today. Feeling well otherwise. Eating and drinking well. Energy level has been good. Review of Systems Constitutional: Negative for chills, fever, malaise/fatigue and weight loss. HENT: Negative. Eyes: Negative. Respiratory: Negative. Cardiovascular: Negative. Gastrointestinal: Negative. Genitourinary: Negative. Musculoskeletal: Negative. Skin: Negative for rash. Neurological: Negative. Current Medication List Name Sig APIXABAN 2.5 MG TABLET Take 1 tablet by mouth two times daily. ESCITALOPRAM 10 MG TABLET Take 10 mg by mouth once daily. ONDANSETRON HCL 8 MG TABLET Take 8 mg by mouth every twelve hours as needed. TRIAMTERENE 37.5 MG-HYDROCHLOROTHIAZIDE 25 MG CAPSULE Take 1 capsule by mouth once daily. VALACYCLOVIR 500 MG TABLET Take 1 tablet by mouth two times daily. Indications: viral infec tion prevention Past Medical History: Diagnosis Date Fibroid HTN (hypertension) Miscarriage Past Surgical History Procedure Laterality Date Hysterectomy 2007 Breast fibroid 1980 fibroid removal left breast Family History Problem Relation Heart Attack Mother Melanoma Father Liver Disease Father Alcohol abuse Father Stroke Sister Dementia Sister Diabetes Sister Brain cancer Brother Alcohol abuse Brother Brain cancer Aunt Social History Socioeconomic History Marital status: Single Spouse name: Not on file Number of children: Not on file Years of education: Not on file Highest education level: Not on file Occupational History Not on file Social Needs Financial resource strain: Not on file Food insecurity: Worry: Not on file Inability: Not on file Transportation needs: Medical: Not on file Non-medical: Not on file Tobacco Use Smoking status: Former Smoker Packs/day: 1.50 Years: 28.00 Pack years: 42.00 Types: Cigarettes Last attempt to quit: 06/29/2004 Years since quittin.6 Smokeless tobacco: Never Used Substance and Sexual Activity Alcohol use: Not Currently Comment: very occasionally Drug use: Not on file Sexual activity: Not on file Lifestyle Physical activity: Days per week: Not on file Minutes per session: Not on file Stress: Not on file Relationships Social connections: Talks on phone: Not on file Gets together: Not on file Attends rastafari service: Not on file Active member of club or organization: Not on file Attends meetings of clubs or organizations: Not on file Relationship status: Not on file Other Topics Concern Not on file Social History Narrative Lives with niece in [facility] PE: Vitals: 02/17/19 1154 BP: 151/85 BP Location: Right lower arm Patient Position: Sitting Pulse: 75 Temp: 36.9 C (98.4 F) TempSrc: Oral SpO2: 98% Weight: 74.8 kg (164 lb 12.8 oz) PainSc: 0 - Zero Physical Exam Constitutional: She is oriented to person, place, and time and well-developed, well-nourish ed, and in no distress. HENT: Head: Normocephalic and atraumatic. Mouth/Throat: No oropharyngeal exudate. Eyes: Conjunctivae are normal. No scleral icterus. Cardiovascular: Normal rate and regular rhythm. Exam reveals no friction rub. No murmur heard. Pulmonary/Chest: Effort normal and breath sounds normal. No respiratory distress. She has n o wheezes. Abdominal: Soft. Bowel sounds are normal. She exhibits no distension. There is no tendernes s. Musculoskeletal: She exhibits no edema. Lymphadenopathy: She has no cervical adenopathy. Neurological: She is alert and oriented to person, place, and time. Skin: Skin is warm and dry. No rash noted. Psychiatric: Affect normal. Laboratory Lab Results Component Value Date WBC 8.31 02/17/2019 HB 12.7 02/17/2019 HCT 39.2 02/17/2019 PLT 348 02/17/2019 MCV 92.7 02/17/2019 RDW 51.5 02/17/2019 Lab Results Lab Test Name Results Date/Time GLU 91 12/02/18 BUN 22 12/02/18 CR 0.72 12/02/18 NA 134 12/02/18 K 3.5 12/02/18 CL 100 12/02/18 BICARB 31 12/02/18 CA 9.2 12/02/18 Bone marrow biopsy 11/05/18- hypercellular marrow (70%) with 18% by morphology and 26% on fl ow. Mild erythroid hyperplasia and megakaryocytic atypia. Blast immunophenotype was positive for CD33, CD45 dim, CD34, CD15, CD117, CD 11c, MPO. The final read was consistent with MDS- EB2 vs evolving AML. Cytogenetics were normal. MDS and AML FISH panel was negative. NGS pane l was negative for FLT3, NPM1, CEBPA, c-KIT, IDH1, IDH2, TP53. Bone marrow biopsy on 01/17/19 - Consistent with myelodysplastic syndrome with multilineage dysplasia - Anemia, neutropenia and mild thrombocytosis - Patchy hypercellular marrow (70%) with trilineage hematopoiesis - Mild atypical megakaryocytic hyperplasia - Mild multlineage megaloblastic/dysplastic morphologic abnormalities - No increase in blasts Karyotype is normal FLT3 negative Genetrails-The previously reported VUS(s) in FAT1, FAT4, SETBP1 and KDM6A, possibly germlin e variants, persist at a similar allele frequency around 50% VAF. CO-MORBIDITY INDEX Is there a history of mechanical ventilation? no Is there a history of proven invasive fungal infection? no Were there clinically significant co-existing diseases or organ impairment at the time of p atient assessment prior to preparative regimen? no Comorbidities Definitions HCT-CI weighted scores Actual lab Values/Comments Arrhythmia Any h/o Atrial fibrillation or flutter, sick sinus syndrome and ventricular arrh ythmias requiring treatment 1 0 Cardiac Any h/o Coronary artery disease, congestive heart failure, myocardial infarction, o r EF <= 50% pre tx 1 0 Inflammatory bowel disease H/o Crohn's disease or ulcerative colitis w/treatment 1 0 Diabetes Requiring treatment with insulin or oral hypoglycemic agents w/in last 4 weeks, bu t not diet alone 1 0 Cerebro-vascular accident H/o Transient ischemic attack or cerebro-vascular accident 1 0 Psychiatric Disturbance Depression/anxiety requiring psychiatric consult or treatment in la st 4 weeks 1 0 Hepatic - mild Chronic hepatitis, or any h/o Hep B/Hep C infx, or bilirubin > ULN - 1.[address], or AST/ALT > ULN - 2.5 x ULN 1 0 Obesity Patients with body mass index > 35 kg/m 1 0 Infection Requiring continuation of anti-microbial treatment after day 0 1 0 Rheumatologic SLE, RA, polymyositis, mixed CTD polymyalgia rheumatica 2 0 Peptic ulcer Any h/o requiring treatment and confirmed by endoscopy 2 0 Moderate/severe renal Serum creatinine > 2 mg/dl, on dialysis, or prior renal transplantati on 2 0 Moderate Pulmonary DLCO Adj and/or FEV1 > 66 - 80% or dyspnea on slight activity 2 0 Prior solid tumor Treated at any time point in patient's past history, excluding non-melano ma skin cancer and prior Hem Maligs 3 0 Heart Valve disease Except mitral valve prolapse 3 0 Severe pulmonary DLCO Adj and/or FEV1 <= 65% or dyspnea at rest or requiring oxygen 3 0 Moderate/severe hepatic Liver cirrhosis, bilirubin > 1.5 x ULN or AST/ALT > 2.5 x ULN 3 0 Karnofsky Score: 90% Able to carry on normal activity, minor signs or symptoms of active di sease Assessment and recommendations Nona Hopper is a 53 year old female with 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 Patient Active Problem List Diagnosis MDS (myelodysplastic syndrome) (HCC) 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 Her history suggests that she may have burgos d preceding MDS however the normal karyotype and lack of MDS associated mutations or cytogen etics supports more of a diagnosis of evolving AML. Of note, she did have >20% blasts on her marrow by flow which would meet criteria for diagnosis of AML. The patient received 2 cycle s of AZA with most recent marrow showing CR1. Her 3rd cycle was delayed 1 month due to recur rent zoster lesions. She will restart AZA next week cycle 3. I discussed her donor search wh ich resulted in no MUD donors however she has several cord blood options available. She has identified a caregiver during her 100 days in the [place] area (a friend). I discussed the Gamida trial : [id number]: A Multicenter, Randomized, Phase III Registration Trial of Tra nsplantation of NiCord, Ex Vivo Expanded, UCB-derived, Stem and Progenitor Cells, vs. Unma nipulated UCB for Patients With Hematological Malignancies. We discussed logistics of the tr ial including the 3 week expansion should she be randomized to the expanded cord arm. The sandra winters asked good questions and consented to the trial today. Herpes Zoster She was initially treated with IV acyclovir from approx 15 through 01/16 then transitioned to valacyclovir 1g TID to complete an additional 7d then decreased to 500mg BID for 2 days, then back up to 1g TID for new lesions. -Continue valacyclovir at 500mg BID (ASBMT, Moira 2009) through day +365 and throughout p eriod of immunosuppression We will see her back for screening for clinical trial and continued transplant planning wit h cord blood donors on Gamida trial. documented in this encounter Plan of Treatment Not on filedocumented as of this encounter Procedures + +--------+ + + + | Procedure Name | Priori | Date/Time | Associated Diagnosis | Comments | | | ty | | | | + +--------+ + + + | [facility] - LDH TOTAL, | Routin | 02/17/2019 | MDS | Results for this | | PLASMA | e | 1:29 PM | (myelodysplastic | procedure are in the | | | | PDT | syndrome) ([facility]) | results section. | + +--------+ + + + | CBC AND AUTO DIFF | Routin | 02/17/2019 | MDS | Results for this | | | e | 1:29 PM | (myelodysplastic | procedure are in the | | | | PDT | syndrome) ([facility]) | results section. | + +--------+ + + + | [facility] - COMPLETE | Routin | 02/17/2019 | MDS | Results for this | | METABOLIC SET | e | 1:29 PM | (myelodysplastic | procedure are in the | | | | PDT | syndrome) ([facility]) | results section. | + +--------+ + + + | [facility] CBC W | Routin | 02/17/2019 | MDS | Results for this | | DIFFERENTIAL | e | 1:29 PM | (myelodysplastic | procedure are in the | | | | PDT | syndrome) ([facility]) | results section. | + +--------+ + + + documented in this encounter Results CBC AND AUTO DIFF (02/17/2019 1:29 PM PDT) + + + + + + | Component | Value | Ref Range | Performed | Pathologist | | | | | At | Signature | + + + + + + | WHITE CELL | 8.31 | 3.50 - 10.80 | [facility] | | | COUNT | | K/cu mm | LABORATORY | | | | | | SERVICES, | | | | | | [facility] + | | | | | | [facility] | | + + + + + + | RED CELL | 4.23 | 4.00 - 5.20 | [facility] | | | COUNT | | M/cu mm | LABORATORY | | | | | | SERVICES, | | | | | | [facility] + | | | | | | [facility] | | + + + + + + | HEMOGLOBIN | 12.7 | 12.0 - 16.0 | [facility] | | | | | g/dL | LABORATORY | | | | | | SERVICES, | | | | | | [facility] + | | | | | | [facility]ALING | | + + + + + + | HEMATOCRIT | 39.2 | 36.0 - 46.0 % | [facility] | | | | | | LABORATORY | | | | | | SERVICES, | | | | | | [facility] + | | | | | | [facility]ALING | | + + + + + + | MCV | 92.7 | 80.0 - 100.0 fL | [facility] | | | | | | LABORATORY | | | | | | SERVICES, | | | | | | [facility] + | | | | | | [facility]ING | | + + + + + + | MCHC | 32.4 | 32.0 - 36.0 | [facility] | | | | | g/dL | LABORATORY | | | | | | SERVICES, | | | | | | [facility] + | | | | | | [facility]ALING | | + + + + + + | RDW SD | 51.5 (H) | 35.1 - 46.3 fL | [facility] | | | | | | LABORATORY | | | | | | SERVICES, | | | | | | [facility] + | | | | | | [facility]ALING | | + + + + + + | PLATELET | 348 | 150 - 400 K/cu | [facility] | | | COUNT | | mm | LABORATORY | | | | | | SERVICES, | | | | | | [facility] + | | | | | | [facility]ALING | | + + + + + + | MPV | 11.4 | 9.7 - 12.3 fL | [facility] | | | | [...] + + + + | NEUTROPHIL | 67.4 | 50.0 - 70.0 % | [facility] | | | % | | | LABORATORY | | | | | | SERVICES, | | | | | | [facility] | | [facility] + | | | | | | [facility]ALING | | + + + + + + | LYMPHOCYTE | 22.6 | 18.0 - 42.0 % | [facility] | | | % | | | LABORATORY | | | | | | SERVICES, | | | | | | [facility] | | | [facility] + | | | | | | [facility]ALING | | + + + + + + | MONOCYTE % | 6.7 | 3.5 - 9.0 % | [facility] | | | | | | LABORATORY | | | | | | SERVICES, | | | | | | [facility] | [facility] + | | | | | | [facility]ALING | | + + + + + + | EOS % | 1.7 | 1.0 - 3.0 % | [facility] | | | | | | LABORATORY | | | | | | SERVICES, | | | | | | [facility] | | | [facility] + | | | | | | HEALING | | + + + + + + | BASO % | 1.1 | 0.0 - 2.0 % | [facility] | | | | | | LABORATORY | | | | | | SERVICES, | | | | | | [facility] | | | | [facility] + | | | | | | HEALING | | + + + + + + | IG% | 0.5Comment: Increased | 0.0 - 1.0 % | [facility] | | | | immature granulocytes | | LABORATORY | | | | (IG) define a left | | SERVICES, | | | | shift. Immature | | CENTER FOR | | | | granulocytes (IG) are an | | HEALTH + | | | | automated count of | | HEALING | | | | metamyelocytes, | | | | | | myelocytes and | | | | | | promyelocytes. Bands | | | | | | are not included in the | | | | | | IG count. Bands are | | | | | | included in the | | | | | | neutrophil count. | | | | + + + + + + | NEUTROPHIL | 5.60 | 1.80 - 7.70 | [facility] | | | # | | K/cu mm | LABORATORY | | | | | | SERVICES, | | | | | | [facility] | | | [facility] + | | | | | | HEALING | | + + + + + + | NEUTROPHIL | 5.60Comment: Preliminary | 1.80 - 7.70 | [facility] [...] + + + + | LYMPHOCYTE | 1.88 | 1.00 - 4.80 | [facility] | | | # | | K/cu mm | LABORATORY | | | | | | SERVICES, | | | | | | [facility] | | [facility] + | | | | | | HEALING | | + + + + + + | MONOCYTE # | 0.56 | 0.10 - 0.90 | [facility] | | | | | K/cu mm | LABORATORY | | | | | | SERVICES, | | | | | | [facility] | | | | [facility] + | | | | | | HEALING | | + + + + + + | EOS # | 0.14 | 0.00 - 0.50 | [facility] | | | | | K/cu mm | LABORATORY | | | | | | SERVICES, | | | | | | [facility] | | | | [facility] + | | | | | | HEALING | | + + + + + + | BASO # | 0.09 | 0.00 - 0.10 | [facility] | [...] | + + + + + | [facility] | [address] | [place] [address] | | | SERVICES, [facility] | | | | | HEALTH + HEALING | | | | + + + + + [facility] - LDH TOTAL, PLASMA (02/17/2019 1:29 PM PDT) + +---------+ + + + | Component | Value | Ref Range | Performed | Pathologist | | | | | At | Signature | + +---------+ + + + | LD TOTAL, | 170 | <=250 U/L | [facility] | | [...] + | [facility] | [address] | [place] [address] | | | SERVICES, [facility] | | | | | HEALTH + HEALING | | | | + + + + + [facility] - COMPLETE METABOLIC SET (02/17/2019 1:29 PM PDT) + +---------+ + + + | Component | Value | Ref Range | Performed | Pathologist | | | | | At | Signature | + +---------+ + + + | GLUCOSE, | 87 | 70 - 99 mg/dL | [facility] | | | PLASMA | | | LABORATORY | | | (LAB) | | | SERVICES, | | | | | | [facility] | | | [facility] + | | | | | | HEALING | | + +---------+ + + + | BUN, PLASMA | 14 | 6 - 20 mg/dL | [facility] | | | (LAB) | | | LABORATORY | | | | | | SERVICES, | | | | | | [facility] | | | [facility] + | | | | | | HEALING | | + +---------+ + + + | CREATININE | 0.78 | 0.60 - 1.10 | [facility] | [...] | | | LABORATORY | | | LUXEMBOURGER | | | SERVICES, | | | | | | [facility] | | | | [facility] + | | | | | | HEALING | | + +---------+ + + + | EGFR NON | >60 | >60 mL/min | [facility] | | | -RENAE | | | LABORATORY | | | RICAN | | | SERVICES, | | | | | | [facility] | | | [facility] + | | | | | | HEALING | | + +---------+ + + + | SODIUM, | 142 | 136 - 145 | [facility] | | | PLASMA | | mmol/L | LABORATORY | | | (LAB) | | | SERVICES, | | | | | | [facility] | | | | [facility] + | | | | | | HEALING | | + +---------+ + + + | POTASSIUM, | 3.7 | 3.4 - 5.0 | [facility] | [...] + + + | TOTAL CO2, | 29 | 21 - 32 mmol/L | [facility] | | | PLASMA | | | LABORATORY | | | (LAB) | | | SERVICES, | | | | | | [facility] | | | | | | [facility] + | | | | | | HEALING | | + +---------+ + + + | CALCIUM, | 9.4 | 8.6 - 10.2 | [facility] | | | PLASMA | | mg/dL | LABORATORY | | | (LAB) | | | SERVICES, | | | | | | [facility] | | | | | [facility] + | | | | | | HEALING | | + +---------+ + + + | CALCIUM(ALB | 9.4 | 8.6 - 10.2 | [facility] | | | CORRECTED) | | mg/dL | LABORATORY | | | | | | SERVICES, | | | | | | [facility] | | | | [facility] + | | | | | | HEALING | | + +---------+ + + + | BILIRUBIN | 0.4 | 0.3 - 1.2 mg/dL | [facility] | | | TOTAL | | | LABORATORY | | | | | | SERVICES, | | | | | | [facility] | | | | | | [facility] + | | | | | | HEALING | | + +---------+ + + + | TOTAL | 7.7 | 6.4 - 8.2 g/dL | [facility] | | | PROTEIN, | | | LABORATORY | | | PLASMA | | | SERVICES, | | | (LAB) | | | [facility] | | | | | | [facility] + | | | | | | HEALING | | + +---------+ + + + | ALBUMIN, | 4.0 | 3.5 - 4.7 g/dL | [facility] | | | PLASMA | | | LABORATORY | | | (LAB) | | | SERVICES, | | | | | | [facility] | | | | | [facility] + | | | | | | HEALING | | + +---------+ + + + | ALK PHOS | 124 (H) | 42 - 98 U/L | [facility] | | | | | | LABORATORY | | | | | | SERVICES, | | | | | | [facility] | [facility] | | | | [facility] + | | | | | | HEALING | | + +---------+ + + + | AST(SGOT) | 30 | <=41 U/L | [facility] | | | | | | LABORATORY | | | | | | SERVICES, | | | | | | [facility] | | | | | | [facility] + | | | | | | HEALING | | + +---------+ + + + | ALT (SGPT) | 22 | <=60 U/L | [facility] | | | | | | LABORATORY | | | | | | SERVICES, | | | | | | [facility] | | | | [facility] + | | | | | | HEALING | | + +---------+ + + + | ANION GAP | 11 | 4 - 11 mmol/L | [facility] | | | | | | LABORATORY | | | | | | SERVICES, | | | | | | [facility] | | | | [facility] + | | | | | | HEALING | | + +---------+ + + + | ANION | 11 | 4 - 11 mmol/L | [facility] [...] MDRD equation recommended by the National | [facility] | | Kidney Disease Education Program. [...] is not valid in the following situations: - | HEALING | | Patients under 18 years of age - Severe malnutrition or obesity - | | | Vegetarian diet - Rapidly changing kidney function - Amputees, | | | paraplegics, or other muscle-wasting diseases | | + + + + + + + + | Performing | Address | City/State/Zipcode | Phone Number | | Organization | | | | + + + + + | [facility] | [address] | [place] [address] | | | SERVICES, [facility] | | | | | HEALTH + HEALING | | | | + + + + + documented in this encounter Visit Diagnoses + + | Diagnosis | + + | MDS (myelodysplastic syndrome) (HCC) - Primary Myelodysplastic syndrome, unspecified | + + documented in this encounter"
--- OUTSIDE RECORDS SUMMARY | ~2020-03-12 | XMS | Encounter Summary ---
Demographics + + + | Address | [address] | | | [place] [address] | + + + | Home Phone | | + + + | Preferred Language | Unknown | + + + | Marital Status | Single | + + + | Taoism Affiliation | NRP | + + + | Race | White | + + + | Ethnic Group | Not or | + + + Author + + + | Author | [facility] | + + + | Organization | [facility] | + + + | Address | Unknown | + + + | Phone | Unavailable | + + + Support + + +---------+ + | Name | Relationship | Address | Phone | + + +---------+ + | Claudia Cota | ECON | Unknown | | + + +---------+ + Care Team Providers + +------+ + | Care Compensation And Benefits Advisor Name | Role | Phone | + +------+ + | Meredith Sanchez | PCP | | + +------+ + Encounter Details +--------+ + + + + | Date | Type | Department | Care Team | Description | +--------+ + + + + | 08/24/ | Pharmacy | Pharmacy @ [facility] | | | | 2019 | Visit | [address] | | | | | | [address] Mailcode: | | | | | | [facility] | | | | | | and Healing, | | | | | | [address] | | | | | | [place], [place] | | | | | | [address] | | | +--------+ + + + [...]
--- OUTSIDE RECORDS SUMMARY | ~2020-03-12 | XMS | Encounter Summary ---
Demographics + + + | Address | [address] | | | [place] [address] | + + + | Home Phone | | + + + | Preferred Language | Unknown | + + + | Marital Status | Single | + + + | Mormon Affiliation | NRP | + + + | Race | White | + + + | Ethnic Group | Not or | + + + Author + + + | Author | [facility] | + + + | Organization | [facility] | + + + | Address | Unknown | + + + | Phone | Unavailable | + + + Support + + +---------+ + | Name | Relationship | Address | Phone | + + +---------+ + | Claudia Cota | ECON | Unknown | | + + +---------+ + Care Team Providers + +------+ + | Care Water Main Inspector Name | Role | Phone | + +------+ + | Meredith Sanchez | PCP | | + +------+ + Reason for Visit + +--------+ + | Reason | Onset | Comments | | | Date | | + +--------+ + | Medication | 05/20/ | | | Adjustment | 2019 | | + +--------+ + Encounter Details +--------+ + + + + | Date | Type | Department | Care Team | Description | +--------+ + + + + | 05/20/ | Telephone | Center for | [place] [place], | Medication | | 2019 | | Hematologic | ACNP [address] | Adjustment | | | | Malignancies at | [address] [facility] [address] | | | | | [facility] | [place], [place] | | | | | [address] | [address] | | | | | Loop Mailcode: | [phone] | | | | | [id number] | | | | | | [facility] [place], | | | | | | [place] [address] | | | | | | [phone] | | | +--------+ + + + [...] this encounter Miscellaneous Notes Telephone Encounter - Qasim Jensen MA - 05/20/2019 4:59 PM PST Result Follow-up CSA level: Lab Results Component Value Date FK506 12.4 05/20/2019 Nona will be contacted to change dose from 1.5 mg every morning and 1 mg every evening to 1 mg every morning and 1 mg every evening per HEATHER Paredes starting on 05/20/2019 (da te). oNna and/or her caregiver have been contacted and were able to provide verbal read back o f these instructions. Spoke with Nona. Qasim Jensen CMA. elephone Encounter - Kerline Braden RN - 05/20/2019 8:58 AM PSTInitial Assessment Nona Hopper's personal banker for today is patient, Nona Hopper, and her conta ct phone number for today 05/20 is: . Nona has been advised of when to expect a confirmation call regarding any necessary dose adjustments: yes. Nona was asked to contact this clinic if she has not received a confirma tion call within 24 hours. Nona reports she currently takes Tacrolimus 1.5 mg every morning and 1 mg every evening. This is the correct dose according to her most recent dose adjustment. Nona took her last dose at 05/19 (time) on 2100 (date). documented in this enc ounter Plan of Treatment Not on filedocumented as of this encounter Visit Diagnoses Not on filedocumented in this encounter"
--- OUTSIDE RECORDS SUMMARY | ~2020-03-12 | XMS | Encounter Summary ---
Demographics + + + | Address | [address] | | | [place] [address] | + + + | Home Phone [...] + + + | Author | [facility] | + + + | Organization | [facility] | + + + | Address | Unknown | + + + | Phone | Unavailable | + + + Support + + +---------+ + | Name | Relationship | Address | Phone | + + +---------+ + | Claudia Cota | ECON | Unknown | | + + +---------+ + Care Team Providers + +------+ + | Care Marble Installer Supervisor Name | Role | Phone | + +------+ + | Meredith Sanchez | PCP | | + +------+ + Encounter Details +--------+ + + + + | Date | Type | Department | Care Team | Description | +--------+ + + + + | 02/12/ | Resource Room Teacher | [facility] | Sejal De [facility]re | | | 2019 | | Clinics at S | N, DO [address] | | | | | [place] [address] | | | | | [address] [place] for | [place], [place] | | | | | Health and Healing, | [address] | | | | | [address] | [phone] | | | | | [place], [place] | | | | | | [address] | | | | | | [phone] | | | +--------+ + + + [...] in contact | No / Unsure | 02/13/2020 8:52 AM | | with someone who was [...]
--- OUTSIDE RECORDS SUMMARY | ~2020-03-12 | XMS | Encounter Summary ---
Demographics + + + | Address | [address] | | | [place] [address] | + + + | Home Phone | | + + + | Preferred Language | Unknown | + + + | Marital Status | Single | + + + | Anabaptism Affiliation | NRP | + + + | Race | White | + + + | Ethnic Group | Not or | + + + Author + + + | Author | [facility] | + + + | Organization | [facility] | + + + | Address | Unknown | + + + | Phone | Unavailable | + + + Support + + +---------+ + | Name | Relationship | Address | Phone | + + +---------+ + | Claudia Cota | ECON | Unknown | | + + +---------+ + Care Team Providers + +------+ + | Care Coffee Host Name | Role | Phone | + +------+ + | Meredith Sanchez | PCP | | + +------+ + Encounter Details +--------+ + + + + | Date | Type | Department | Care Team | Description | +--------+ + + + + | 05/12/ | Pharmacy | Outpatient Retail | | | | 2019 | Visit | [facility] | | | | | | [address] | | | | | | Loop [place], [place] | | | | | | [address] | | | | | | [phone] | | | +--------+ + + + [...]
--- OUTSIDE RECORDS SUMMARY | ~2020-03-12 | XMS | Encounter Summary ---
Demographics + + + | Address | [address] | | | [place] [address] | + + + | Home Phone | | + + + | Preferred Language | Unknown | + + + | Marital Status | Single | + + + | Christian Affiliation | NRP | + + + | Race | White | + + + | Ethnic Group | Not or | + + + Author + + + | Author | [facility] | + + + | Organization | [facility] | + + + | Address | Unknown | + + + | Phone | Unavailable | + + + Support + + +---------+ + | Name | Relationship | Address | Phone | + + +---------+ + | Claudia Cota | ECON | Unknown | | + + +---------+ + Care Team Providers + +------+ + | Care Guest Services Manager Name | Role | Phone | + +------+ + | Meredith Sanchez | PCP | | + +------+ + Encounter Details +--------+ + + + + | Date | Type | Department | Care Team | Description | +--------+ + + + + | 05/16/ | Pharmacy | Outpatient Retail | | | | 2019 | Visit | Clinic Pharmacy | | | | | | [address] | | | | | | Loop [place], [place] | | | | | | [address] | | | | | | [phone] | | | +--------+ + + + [...]
--- OUTSIDE RECORDS SUMMARY | ~2020-03-12 | XMS | Encounter Summary ---
Demographics + + + | Address | [address] | | | [place] [address] | + + + | Home Phone [...] + + + | Author | [facility] | + + + | Organization | [facility] | + + + | Address | Unknown | + + + | Phone | Unavailable | + + + Support + + +---------+ + | Name | Relationship | Address | Phone | + + +---------+ + | Claudia Cota | ECON | Unknown | | + + +---------+ + Care Team Providers + +------+ + | Care Director Of Supply Chain Name | Role | Phone | + +------+ + | Meredith Sanchez | PCP | | + +------+ + Reason for Visit + + + | Reason | Comments | + + + | Intravenous infusion | Mag + IVF | + + + Other (Routine) +--------+--------+ + + + + | Status | Reason | Specialty | Diagnoses / | Referred By | Referred To | | | | | Procedures | Contact | Contact | +--------+--------+ + + + + | Closed | | Hematology | Diagnoses | [place], | [facility] [facility] | | | | 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 | [place], | [facility] [address] | | | | | (myelodyspla | DO [address] | [address] | | | | | stic | [address] | Center for | | | | | syndrome) | [address] | Health and | | | | | (HCC) | [place], [place] | Healing, | | | | | Procedures | [address] | [address] | | | | | CO | Phone: | [place], [place] | | | | | OFFICE/OUTPT | [phone] | [address] | | | | | | Fax: | Phone: | | | | | VISIT,EST,LE | [phone] | [phone] | | | | | VL IV CO | | Fax: | | | | | EST PATIENT | | [phone] | | | | | LEVEL V | | | +--------+--------+ + + + + Encounter Details +--------+ + + + + | Date | Type | Department | Care Team | Description | +--------+ + + + + | 07/02/ | Hospital | [facility] | | | | 2020 | Encounter | Clinics at S | | | | | | [facility] [address] | | | | | | [address] [facility] for | | | | | | Health and Healing, | | | | | | Building [address] | | | | | | [place], [place] | | | | | | [address] | | | | | | [phone] | | | +--------+ + + + [...] + + + | Blood Pressure | 94/69 | 07/02/2019 9:22 AM | | | | | PST | | + + + + + | Pulse | 95 | 07/02/2019 9:22 AM | | | | | PST | | + + + + + | Temperature | 37.1 C (98.7 F) | 07/02/2019 9:22 AM | | | | | PST | | + + + + + | Respiratory Rate | 12 | 07/02/2019 9:22 AM | | | | | PST | | + + + + + | Oxygen Saturation | 92% | 07/02/2019 9:22 AM | | | | | PST | | + + + + + | Inhaled Oxygen | - | - | | | Concentration | | | | + + + + + | Weight | 56.2 kg (124 lb) | 07/02/2019 9:22 AM | | | | | PST | | + + + + + | Height | - | - | | + + + + + | Body Mass Index | 21.97 | 06/21/2019 9:34 AM | | | [...] documented as of this encounter Progress Notes Fatou Manrique RN - 07/02/2019 9:10 AM PSTAssessment Patient arrives to clinic walking independently. Patient states she is feeling well today. Patient with a history of MDS, now s/p allo transplant (day 0=04/22/19) Patient is in clinic for IVF + Magnesium based on labs drawn on 07/01/18. No labs drawn today . Fever/Chills/Infection: No SOB / Cough: No Fatigue/Dizziness/Lightheaded: Yes; fatigue at basline Signs/Symptoms Bleeding: No Neuropathy: No Mucositis: Yes; taste changes Nausea/Vomiting: No Appetite: decreased d/t taste changes. Diarrhea/Constipation: No PO Fluid Intake: <2L; encouraged to drink at least 2L daily. Urinary Issues: No Rash/Skin/Edema: No Pain: No Lab Groshong accessed per protocol. Good blood return noted. No labs required. Groshong pulse flushed with 20 mL NS. Immunosuppressant Next level due 07/07/18 Dressing Change Next due 07/08/18 Education For education provided, see education tab. Supportive Care Magnesium Magnesium Sulfate 8 gm in 200 mL NS infused over 4 hours per supportive care orders for a m agnesium level of 1.2. For infusion details, see MAR. Transfusion/Infusion 1L NS bolus administered per patient request. Discharge Line care provided, see Flowsheet for details. Patient was instructed to check out at the f ront desk prior to leaving the clinic. Patient d/c d ambulatory in stable condition. Next appointment scheduled 07/07/19 at 9:30 am. Fatou Manrique RN documented in this e ncounter Plan of Treatment Not on filedocumented as [...] in water IV | New Bag | 07/02/19 | 4 g | | | | (RTU) 4 g 4 g, intravenous, | | 20 11:28 | | | | | ONCE, 1 dose, 07/02/19 at 0930 | | AM PST | | | | + +---------+ +------+------+------+ +---+---+ | | | +---+---+ + +---------+ +-----+---+---+ | magnesium sulfate in water IV | New Bag | 07/02/19 | 4 g | | | | (RTU) 4 g 4 g, intravenous, | | 20 9:40 | | | | | ONCE, 1 dose, 07/02/19 at 09 | | AM PST | | | | + +---------+ +-----+---+---+ +---+---+ | | | +---+---+ + +---------+ + +---+---+ | sodium chloride (NS) 0.9 % | New Bag | 07/02/19 | 1,000 mL | | | | bolus 1,000 mL 1,000 mL, | | 20 9:40 | | | | | intravenous, NEEDED, Starting | | AM PST | | | | | 07/02/19 at 0918, Until Sat | | | | | | | 07/02/19 at 2054, decreased po | | | | | | | intake, dizziness | | | | | | + +---------+ + +---+---+ +---+---+ | | | +---+---+ documented in this encounter"
--- OUTSIDE RECORDS SUMMARY | ~2020-03-12 | XMS | Encounter Summary ---
Demographics + + + | Address | [address] | | | [place] [address] | + + + | Home Phone | | + + + | Preferred Language | Unknown | + + + | Marital Status | Single | + + + | Faith Affiliation | NRP | + + + | Race | White | + + + | Ethnic Group | Not or | + + + Author + + + | Author | [facility] | + + + | Organization | [facility] | + + + | Address | Unknown | + + + | Phone | Unavailable | + + + Support + + +---------+ + | Name | Relationship | Address | Phone | + + +---------+ + | Claudia Ctoa | ECON | Unknown | | + + +---------+ + Care Team Providers + +------+ + | Care Mailing Jogger Name | Role | Phone | + +------+ + | Meredith Sanchez | PCP | | + +------+ + Encounter Details +--------+ + + + + | Date | Type | Department | Care Team | Description | +--------+ + + + + | 04/12/ | Cylinder Block Hole Reliner | [facility] | Sejal De La Torre | | | 2019 | | Clinics at S | N, DO [address] | | | | | [place] [address] | | | | | [place] [place] for | [place], [place] | | | | | Health and Healing, | [address] | | | | | [address] | [phone] | | | | | [place], [place] | | | | | | [address] | | | | | | [phone] | | | +--------+ + + + [...]
--- OUTSIDE RECORDS SUMMARY | ~2020-03-12 | XMS | Encounter Summary ---
Demographics + + + | Address | [address] | | | [place] [address] | + + + | Home Phone | | + + + | Preferred Language | Unknown | + + + | Marital Status | Single | + + + | Synagogue Affiliation | NRP | + + + | Race | White | + + + | Ethnic Group | Not or | + + + Author + + + | Author | [facility] | + + + | Organization | [facility] | + + + | Address | Unknown | + + + | Phone | Unavailable | + + + Support + + +---------+ + | Name | Relationship | Address | Phone | + + +---------+ + | Claudia Cota | ECON | Unknown | | + + +---------+ + Care Team Providers + +------+ + | Care Prevention Coordinator Name | Role | Phone | + +------+ + | Meredith Sanchez | PCP | | + +------+ + Encounter Details +--------+ + + + + | Date | Type | Department | Care Team | Description | +--------+ + + + + | 11/02/ | Commercial Credit Specialist | [facility] | Sejal De La Torre | S/P cord blood | | 2020 | | Clinics at S | N, DO [address] | transplantation | | | | [place] [address] | (Primary Dx) | | | | [facility] for | [place], [place] | | | | | Health and Healing, | [address] | | | | | [address] | [phone] | | | | | [facility] [place] | | | | | | [address] | | | | | | [phone] | | | +--------+ + + + [...] in contact | No / Unsure | 11/03/2019 7:28 AM | | with someone who was [...] on filedocumented as of this encounter Results VITAMIN D, 25-HYDROXY, SERUM (11/03/2019 7:36 AM PDT) + +-------+ + + + | Component | Value | Ref Range | Performed | Pathologist | | | | | At | Signature | + +-------+ + + + | VITAMIN D | 38.0 | 30 - 80 ng/mL | [facility] | | | 25 HYDROXY | | | LABORATORY | | | | | | SERVICES, | | | | | | CORE | | + +-------+ + + + + + | Specimen | + + | Blood - Blood | | (substance) | + + + + + | Narrative | Performed At | + + + | Reference Interval: 0-18years: Deficiency: <20 ng/mL | [facility] | | Optimum level: >or=20 ng/mL | LABORATORY | | >18years: Deficiency: <20 | SERVICES, CORE | | ng/mL Insufficiency: 20-29 ng/mL | | | Optimum Level: 30-80 ng/mL High: | | | 81-150 ng/ml Toxic: >150 ng/mL | | + + + + + + + + | Performing | Address | City/State/Zipcode | Phone Number | | Organization | | | | + + + + + | [employer] | [address] [facility] | [place] [address] | | | SERVICES, CORE | [address] | | | + + + + + IGA, SERUM (11/03/2019 7:36 AM PDT) + + + + + + | Component | Value | Ref Range | Performed | Pathologist | | | | | At | Signature | + + + + + + | IGA SERUM | 61 (L)Comment: REFERENCE | 68 - 408 mg/dL | [facility] | | | | INTERVAL: | | REG UNIV | | | | Immunoglobulin A Access | | PTH - INTFC | | | | complete set of age- | | | | | | and/or gender-specific | | | | | | reference intervals for | | | | | | this test in the [facility] | | | | | | Laboratory Test | | | | | | Directory | | | | | | ([email or web address]).Performed | | | | | | by [address] | | | | | | [address], [facility] [place] | | | | | | [address] | | | | | | [phone]. | | | | | | [facility], Zeferino Wolf MD, | | | | | | Lab. Director | | | | + + + + + + + + | Specimen | + + | Blood - Blood | | (substance) | + + + + + + + | Performing | Address | City/State/Zipcode | Phone Number | | Organization | | | | + + + + + | [facility] | [address] | [place], [place] | | | UNIV PTH - INTFC | | [address] | | + + + + + IGM, SERUM (11/03/2019 7:36 AM PDT) + + + + + + | Component | Value | Ref Range | Performed | Pathologist | | | | | At | Signature | + + + + + + | IGM SERUM | 30 (L)Comment: REFERENCE | 35 - 263 mg/dL | [facility] | | | | INTERVAL: | | REG UNIV | | | | Immunoglobulin M Access | | PTH - INTFC | | | | complete set of age- | | | | | | and/or gender-specific | | | | | | reference intervals for | | | | | | this test in the [facility] | | | | | | Laboratory Test | | | | | | Directory | | | | | | ([email or web address]).Performed | | | | | | by [address] | | | | | | [address], [facility] [place] | | | | | | [address] | | | | | | [phone].[employer]. | | | | | | Zeferino [...] [facility] | [address] | [place], [place] | | | UNIV PTH - INTFC | | [address] | | + + + + + IGG, SERUM (11/03/2019 7:36 AM PDT) + + + + + + | Component | Value | Ref Range | Performed | Pathologist | | | | | At | Signature | + + + + + + | IGG SERUM | 504 (L)Comment: | [phone] | [facility] | | | | REFERENCE INTERVAL: | mg/dL | REG UNIV | | | | Immunoglobulin G Access | | PTH - INTFC | | | | complete set of age- | | | | | | and/or gender-specific | | | | | | reference intervals for | | | | | | this test in the [employer] | | | | | | Laboratory Test | | | | | | Directory | | | | | | ([email or web address]).Performed | | | | | | by [address] | | | | | | [address], [facility] [place] | | | | | | [address] | | | | | | [phone].[employer]. | | | | | | [facility], Zeferino Wolf MD, | | | | | | [...] [facility] | [address] | [place], [place] | | | UNIV PTH - INTFC | | [address] | | + + + + + CD4 (T CELL), BLOOD (11/03/2019 7:36 AM PDT) + +-------+ + + + | Component | Value | Ref Range | Performed | Pathologist | | | | | At | Signature | + +-------+ + + + | CD4 % (T | 43.9 | 26.0 - 61.0 % | [facility] | | | HELPER | | | LABORATORY | | | CELLS) | | | SERVICES, | | | | | | SPECIAL IMM | | | | | | + COAG | | + +-------+ + + + | CD4 (T | 334 | 212-1,391 /cu | [facility] | | | HELPER | | mm | LABORATORY | | | CELLS) | | | SERVICES, | | | | | | SPECIAL IMM | | | | | | + COAG | | + +-------+ + + + + + | Specimen | + + | Blood - Blood | | (substance) | + + + + + | Narrative | Performed At | + + + | (Analyte specific reagents are used in many laboratory tests | [facility] | | necessary for standard medical care. This test was developed and its | LABORATORY | | performance characteristics determined by [facility]. It has | SERVICES, | | not been cleared or approved by the US Food and Drug Administration | SPECIAL IMM + | | (FDA). FDA does not require this test to go through premarket FDA | COAG | | review. This test is used for clinical purposes. It should not be | | | regarded as investigational or for research. The laboratory is | | | certified under the Clinical Laboratory Improvement Amendments (CLIA) | | | as qualified to perform high complexity clinical laboratory testing.) | | | | | + + + + + + + + | Performing | Address | City/State/Unm Hospitalcode | Phone Number | | Organization | | | | + + + + + | [facility] | [address] | [place] [address] | | | SPECIAL MENG | [address] | | | | IMM + [place] | | | | + + + + + documented in this encounter Visit Diagnoses + + | Diagnosis | + + | 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"
--- OUTSIDE RECORDS SUMMARY | ~2020-03-12 | XMS | Encounter Summary ---
Demographics + + + | Address | [address] | | | [place] [address] | + + + | Home Phone | | + + + | Preferred Language | Unknown | + + + | Marital Status | Single | + + + | Advent Affiliation | NRP | + + + | Race | White | + + + | Ethnic Group | Not or | + + + Author + + + | Author | [facility] | + + + | Organization | [facility] | + + + | Address | Unknown | + + + | Phone | Unavailable | + + + Support + + +---------+ + | Name | Relationship | Address | Phone | + + +---------+ + | Claudia Cota | ECON | Unknown | | + + +---------+ + Care Team Providers + +------+ + | Care Americanization Teacher Name | Role | Phone | + +------+ + | Meredith Sanchez | PCP | | + +------+ + Encounter Details +--------+ + + + + | Date | Type | Department | Care Team | Description | +--------+ + + + + | 09/28/ | Factory Clerk | [facility] | Sejal De La Torre | S/P cord blood | | 2020 | | Clinics at S | N, DO [address] | transplantation | | | | [facility] | (Primary Dx); GVHD | | | | [facility] for | [facility], [place] | (graft versus host | | | | Health and Healing, | [address] | disease) (HCC) | | | | [address] | [phone] | | | | | [place], [place] | | | | | | [address] | | | | | | [phone] | | | +--------+ + + + [...] as of this encounter Plan of Treatment + +------+--------+ + + | Name | Type | Priori | Associated Diagnoses | Order Schedule | | | | ty | | | + +------+--------+ + + | CBC, WITH | Lab | Routin | S/P cord blood | Expected: 09/30/2019 | | DIFFERENTIAL | | e | transplantation | (Approximate), | | | | | GVHD (graft versus | Expires: 10/28/2020 | | | | | host disease) (HCC) | | + +------+--------+ + + | COMPLETE METABOLIC | Lab | Routin | S/P cord blood | Expected: 09/30/2019 | | SET | | e | transplantation | (Approximate), | | (NA,K,CL,CO2,BUN,CRE | | | GVHD (graft versus | Expires: 10/28/2020 | | AT,GLUC,CA,AST,ALT,B | | | host disease) ([facility]) | | | TI TOTAL,ALK | | | | | | PHOS,ALB,PROT TOTAL) | | | | | + +------+--------+ + + | LDH TOTAL, PLASMA | Lab | Routin | S/P cord blood | Expected: 09/30/2019 | | | | e | transplantation | (Approximate), | | | | | GVHD (graft versus | Expires: 10/28/2020 | | | | | host disease) ([facility]) | | + +------+--------+ + + | LYMPHOCYTE | Lab | Routin | S/P cord blood | Expected: 09/30/2019 | | ACTIVATION(LYMPH | | e | transplantation | (Approximate), | | RECONSTITUTION/ACTIV | | | GVHD (graft versus | Expires: 10/28/2020 | | ATE),BLOOD | | | host disease) (HCC) | | + +------+--------+ + + | [facility] - MAGNESIUM, | Lab | Routin | S/P cord blood | Expected: 09/30/2019 | | PLASMA | | e | transplantation | (Approximate), | | | | | GVHD (graft versus | Expires: 10/28/2020 | | | | | host disease) (HCC) | | + +------+--------+ + + documented as of this encounter Results CHIMERISM SORTED CELLS, DNA, BLOOD (02/13/2020 10:09 AM PDT) + +---------+ + + + | Component | Value | Ref Range | Performed | Pathologist | | | | | At | Signature | + +---------+ + + + | ANTIBODY | CD3 | | [facility] | | | SORTED - 1 | | | LABORATORY | | | | | | SERVICES, | | | | | | SPECIAL IMM | | | | | | + COAG | | + +---------+ + + + | CELLS | 80,000 | | [facility] | | | SORTED - 1 | | | LABORATORY | | | | | | SERVICES, | | | | | | SPECIAL IMM | | | | | | + COAG | | + +---------+ + + + | PURITY - 1 | 98.0 | % | [facility] | | | | | | LABORATORY | | | | | | SERVICES, | | | | | | SPECIAL IMM | | | | | | + COAG | | + +---------+ + + + | ANTIBODY | CD33 | | [facility] | | | SORTED - 2 | | | LABORATORY | | | | | | SERVICES, | | | | | | SPECIAL IMM | | | | | | + COAG | | + +---------+ + + + | CELLS | 150,000 | | [facility] | | | SORTED - 2 | | | LABORATORY | | | | | | SERVICES, | | | | | | SPECIAL IMM | | | | | | + COAG | | + +---------+ + + + | PURITY - 2 | 98.0 | % | [facility] | | | | | | LABORATORY | | | | | | SERVICES, | | | | | | SPECIAL IMM | | | | | | + COAG | | + +---------+ + + + + + | Specimen | + + | Blood - Blood | | (substance) | + + + + + + + | Performing | Address | City/State/Zipcode | Phone Number | | Organization | | | | + + + + + | [facility] | [address] | [place] [address] | | | SERVICES, SPECIAL | [address] | | | | IMM + COAG | | | | + + + + + documented in this encounter Visit Diagnoses + + | Diagnosis | + + | 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
--- OUTSIDE RECORDS SUMMARY | ~2020-03-12 | XMS | Encounter Summary ---
Demographics + + + | Address | [address] | | | [place] [address] | + + + | Home Phone | | + + + | Preferred Language | Unknown | + + + | Marital Status | Single | + + + | Protestant Affiliation | NRP | + + + | Race | White | + + + | Ethnic Group | Not or | + + + Author + + + | Organization | Unknown | + + + | Address | Unknown | + + + | Phone | Unavailable | + + + Support + + +---------+ + | Name | Relationship | Address | Phone | + + +---------+ + | Claudia Cota | ECON | Unknown | | + + +---------+ + Care Team Providers + +------+ + | Care Manager Credit Name | Role | Phone | + +------+ + | Meredith Sanchez | PCP | | + +------+ + Encounter Details +--------+--------+ + + + | Date | Type | Department | Care Team | Description | +--------+--------+ + + + | 07/28/ | Travel | | | | | 2020 | | | | | +--------+--------+ + + + Social History + + [...]
--- OUTSIDE RECORDS SUMMARY | ~2020-03-12 | XMS | Encounter Summary ---
Demographics + + + | Address | [address] | | | [place] [address] | + + + | Home Phone | | + + + | Preferred Language | Unknown | + + + | Marital Status | Single | + + + | Episcopalian Affiliation | NRP | + + + | Race | White | + + + | Ethnic Group | Not or | + + + Author + + + | Author | [facility] | + + + | Organization | [facility] | + + + | Address | Unknown | + + + | Phone | Unavailable | + + + Support + + +---------+ + | Name | Relationship | Address | Phone | + + +---------+ + | Claudia Cota | ECON | Unknown | | + + +---------+ + Care Team Providers + +------+ + | Care Surfacer Operator Name | Role | Phone | + +------+ + | Meredith Sanchez | PCP | | + +------+ + Encounter Details +--------+ + + + + | Date | Type | Department | Care Team | Description | +--------+ + + + + | 04/19/ | Pharmacy | Outpatient Retail | | | | 2019 | Visit | [facility] | | | | | | [address] | | | | | | [address] [place], [place] | | | | | | [address] | | | | | | [phone] | | | +--------+ + + + [...]
--- OUTSIDE RECORDS SUMMARY | ~2020-03-12 | XMS | Encounter Summary ---
Demographics + + + | Address | [address] | | | [place] [address] | + + + | Home Phone | | + + + | Preferred Language | Unknown | + + + | Marital Status | Single | + + + | Hoahaoism Affiliation | NRP | + + + | Race | White | + + + | Ethnic Group | Not or | + + + Author + + + | Author | [facility] | + + + | Organization | [facility] | + + + | Address | Unknown | + + + | Phone | Unavailable | + + + Support + + +---------+ + | Name | Relationship | Address | Phone | + + +---------+ + | Claudia Cota | ECON | Unknown | | + + +---------+ + Care Team Providers + +------+ + | Care Running Rigger Name | Role | Phone | + +------+ + | Meredith Sanchez | PCP | | + +------+ + Encounter Details +--------+ + + + + | Date | Type | Department | Care Team | Description | +--------+ + + + + | 10/03/ | Document-Sc | [facility] [address] | Sejal De La Torre | | | 2020 | waqas | [address] | [address], [address] | | | | | [facility] [place] | [address] | | | | | [address] | [place], [place] | | | | | | [address] | | | | | | [phone] | | | | | | | | +--------+ + + + [...]
--- OUTSIDE RECORDS SUMMARY | ~2020-03-12 | XMS | Encounter Summary ---
Demographics + + + | Address | [address] | | | [place] [address] | + + + | Home Phone | | + + + | Preferred Language | Unknown | + + + | Marital Status | Single | + + + | Congregation Affiliation | NRP | + + + | Race | White | + + + | Ethnic Group | Not or | + + + Author + + + | Author | [facility] | + + + | Organization | [facility] | + + + | Address | Unknown | + + + | Phone | Unavailable | + + + Support + + +---------+ + | Name | Relationship | Address | Phone | + + +---------+ + | Claudia Cota | ECON | Unknown | | + + +---------+ + Care Team Providers + +------+ + | Care Stroke Coordinator Name | Role | Phone | + +------+ + | Meredith Sanchez | PCP | | + +------+ + Encounter Details +--------+ + + + + | Date | Type | Department | Care Team | Description | +--------+ + + + + | 06/08/ | Pharmacy | Pharmacy @ [facility] | | | | 2019 | Visit | [address] | | | | | | Re[address] Mailcode: | | | | | | [facility] | | | | | | and Healing, | | | | | | [address] | | | | | | [place], [place] | | | | | | [address] | | | +--------+ + + + [...]
--- OUTSIDE RECORDS SUMMARY | ~2020-03-12 | XMS | Encounter Summary ---
Demographics + + + | Address | [address] | | | [place] [address] | + + + | Home Phone | | + + + | Preferred Language | Unknown | + + + | Marital Status | Single | + + + | Jainism Affiliation | NRP | + + + [...] Team Providers + +------+ + | Care Electronic Plotting System Operator Name | Role | Phone | + +------+ + | Meredith Sanchez | PCP | | + +------+ + Encounter Details +--------+--------+ + + + | Date | Type | Department | Care Team | Description | +--------+--------+ + + + | 05/25/ | Travel | | | | | 2018 | | | | | +--------+--------+ + [...]
--- OUTSIDE RECORDS SUMMARY | ~2020-03-12 | XMS | Encounter Summary ---
Demographics + + + | Address | [address] | | | [place] [address] | + + + | Home Phone | | + + + | Preferred Language | Unknown | + + + | Marital Status | Single | + + + | Restorationism Affiliation | NRP | + + + | Race | White | + + + | Ethnic Group | Not or | + + + Author + + + | Author | [facility] | + + + | Organization | [facility] | + + + | Address | Unknown | + + + | Phone | Unavailable | + + + Support + + +---------+ + | Name | Relationship | Address | Phone | + + +---------+ + | Claudia Cota | ECON | Unknown | | + + +---------+ + Care Team Providers + +------+ + | Care Conservator Artifacts Name | Role | Phone | + +------+ + | Meredith Sanchez | PCP | | + +------+ + Reason for Referral Consultation (Routine) + +--------+ + + + + | Status | Reason | Specialty | Diagnoses / | Referred By | Referred To | | | | | Procedures | Contact | Contact | + +--------+ + + + + | New Request | | Pulmonary | Diagnoses | [facility], | Pul Faculty | | | | Disease | S/P cord | Cathy Gonzalez, | 3rd Ppv | | | | | blood | TRAINING GENERALIST [address] | [address] | | | | | transplantat | [address] | [address] | | | | | ion | Melly Lujan | Physician's | | | | | Procedures | [place], [place] | [address], | | | | | CONSULT TO | [address] | 3rd Floor | | | | | PULMONARY | Phone: | [place], [place] | | | | | | [phone] | [address] | | | | | | Fax: | Phone: | | | | | | [phone] | [phone] | | | | | | | Fax: | | | | | | | [phone] | + +--------+ + + + + Encounter Details +--------+ + + + + | Date | Type | Department | Care Team | Description | +--------+ + + + + | 03/01/ | Telephone | [facility] | Cathy Cornelius | | | 2020 | | Clinics at S | M, TRAINING GENERALIST [address] | | | | | [facility] [address] | | | | | [facility] for | [place], [place] | | | | | Health and Healing, | [address] | | | | | [address] | [phone] | | | | | [place], [place] | | | | | | [address] | | | | | | [phone] | | | +--------+ + + + [...] this encounter Miscellaneous Notes Telephone Encounter - Cathy Cornelius NP - 03/01/2020 12:20 PM LEONTrotnio RN contacted me regarding wheezing and shortness of breath when walking up stairs. She usually uses an el evator to get to her third floor apartment but she has been taking the stairs and noted some worsening shortness of breath. We discussed the PFT results at the last visit (decreased DL CO) and she has been more aware of her breathing recently. Given this we will plan to start fluticasone 2 puffs BID and albuterol PRN. She continues t o note edema in her legs as well and will prescribe three days of diuresis. Discussed with Dr. De La Torre and ordered CT expiratory views, pulmonary referral and requested visit with us on 03/08. Cathy Cornelius NP [facility] AT [address] And [facility], [address] [place] [address] documented in thi s encounter Plan of Treatment Not on filedocumented as of this encounter Visit Diagnoses + + | Diagnosis | + + | 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"
--- OUTSIDE RECORDS SUMMARY | ~2020-03-12 | XMS | Encounter Summary ---
Demographics + + + | Address | [address] | | | [place] [address] | + + + | Home Phone | | + + + | Preferred Language | Unknown | + + + | Marital Status | Single | + + + | Mandaen Affiliation | NRP | + + + | Race | White | + + + | Ethnic Group | Not or | + + + Author + + + | Author | [facility] | + + + | Organization | [facility] | + + + | Address | Unknown | + + + | Phone | Unavailable | + + + Support + + +---------+ + | Name | Relationship | Address | Phone | + + +---------+ + | Claudia Cota | ECON | Unknown | | + + +---------+ + Care Team Providers + +------+ + | Care Physiotherapy Aide Name | Role | Phone | + +------+ + | Meredith Sanchez | PCP | | + +------+ + Encounter Details +--------+ + + + + | Date | Type | Department | Care Team | Description | +--------+ + + + + | 05/10/ | Pharmacy | Specialty Pharmacy | | | | 2019 | Visit | Services [address] | | | | | | [address] | | | | | | [place], [place] | | | | | | [address] | | | | | | [phone] | | | +--------+ + + + [...]
--- OUTSIDE RECORDS SUMMARY | ~2020-03-12 | XMS | Encounter Summary ---
Demographics + + + | Address | [address] | | | [place] [address] | + + + | Home Phone [...] Author + + + | Author | [facility] | + + + | Organization | [facility] | + + + | Address | Unknown | + + + | Phone | Unavailable | + + + Support + + +---------+ + | Name | Relationship | Address | Phone | + + +---------+ + | Claudia Cota | ECON | Unknown | | + + +---------+ + Care Team Providers + +------+ + | Care Supervisor Lending Activities Name | Role | Phone | + +------+ + | Meredith Sanchez | PCP | | + +------+ + Encounter Details +--------+ + + + + | Date | Type | Department | Care Team | Description | +--------+ + + + + | 12/02/ | Document-Sc | [facility] | Sejal De La Torre | | | 2019 | anned | Clinics at S | N, DO [address] | | | | | [facility] [address] | | | | | Reji Callahan [place] for | [place], [place] | | | | | Health and Healing, | [address] | | | | | [address] | [phone] | | | | | [place], [place] | | | | | | [address] | | | | | | [phone] | | | +--------+ + + + [...] | + +--------+ + + + | LAB REPORTS | | 12/02/2018 | | Results for this | | | | 12:00 AM | | procedure are in the | | | | PDT | | results section. | + +--------+ + + + | PATHOLOGY | | 12/02/2018 | | Results for this | | | | 12:00 AM | | procedure are in the | | | | PDT | | results section. | + +--------+ + + + documented in this encounter Results LAB REPORTS (12/02/2018 12:00 AM PDT) + + + | Narrative | Performed At | + + + | | | + + + PATHOLOGY (12/02/2018 12:00 AM PDT) + + + | Narrative | Performed At | + + + | | | + + + documented in this encounter Visit Diagnoses Not on filedocumented in this encounter"
--- OUTSIDE RECORDS SUMMARY | ~2020-03-12 | XMS | Encounter Summary ---
Demographics + + + | Address | [address] | | | [place] [address] | + + + | Home Phone | | + + + | Preferred Language | Unknown | + + + | Marital Status | Single | + + + | Pentecostalism Affiliation | NRP | + + + | Race | White | + + + | Ethnic Group | Not or | + + + Author + + + | Author | [facility] | + + + | Organization | [facility] | + + + | Address | Unknown | + + + | Phone | Unavailable | + + + Support + + +---------+ + | Name | Relationship | Address | Phone | + + +---------+ + | Claudia Cota | ECON | Unknown | | + + +---------+ + Care Team Providers + +------+ + | Care Tourist Adviser Name | Role | Phone | + +------+ + | Meredith Sanchez | PCP | | + +------+ + Encounter Details +--------+ + + + + | Date | Type | Department | Care Team | Description | +--------+ + + + + | 06/03/ | Pharmacy | Pharmacy @ [facility] | | | | 2019 | Visit | [address] | | | | | | Re[address] Mailcode: | | | | | | [facility] | | | | | | and Healing, | | | | | | [address] | | | | | | [place], [place] | | | | | | [address] | | | +--------+ + + + [...]
--- OUTSIDE RECORDS SUMMARY | ~2020-03-12 | XMS | Encounter Summary ---
Demographics + + + | Address | [address] | | | [place] [address] | + + + | Home Phone | | + + + | Preferred Language | Unknown | + + + | Marital Status | Single | + + + | Sikhism Affiliation | NRP | + + + | Race | White | + + + | Ethnic Group | Not or | + + + Author + + + | Author | [facility] | + + + | Organization | [facility] | + + + | Address | Unknown | + + + | Phone | Unavailable | + + + Support + + +---------+ + | Name | Relationship | Address | Phone | + + +---------+ + | Claudia Cota | ECON | Unknown | | + + +---------+ + Care Team Providers + +------+ + | Care Lvn Name | Role | Phone | + +------+ + | Meredith Sanchez | PCP | | + +------+ + Encounter Details +--------+ + + + + | Date | Type | Department | Care Team | Description | +--------+ + + + + | 01/13/ | Documentati | [facility] | Sejal De La Torre | | | 2019 | on | Clinics at S | N, DO [address] | | | | | [place] [address] | | | | | Reji Callahan [place] for | [place], [place] | | | | | Health and Healing, | [address] | | | | | [address] | [phone] | | | | | [place], [place] | | | | | | [address] | | | | | | [phone] | | | +--------+ + + + [...]
--- OUTSIDE RECORDS SUMMARY | ~2020-03-12 | XMS | Encounter Summary ---
Demographics + + + | Address | [address] | | | [place] [address] | + + + | Home Phone | | + + + | Preferred Language | Unknown | + + + | Marital Status | Single | + + + | Nondenominational Affiliation | NRP | + + + | Race | White | + + + | Ethnic Group | Not or | + + + Author + + + | Author | [facility] | + + + | Organization | [facility] | + + + | Address | Unknown | + + + | Phone | Unavailable | + + + Support + + +---------+ + | Name | Relationship | Address | Phone | + + +---------+ + | Claudia Cota | ECON | Unknown | | + + +---------+ + Care Team Providers + +------+ + | Care Watch Case Polisher Name | Role | Phone | + +------+ + | Meredith Sanchez | PCP | | + +------+ + Encounter Details +--------+ + + + + | Date | Type | Department | Care Team | Description | +--------+ + + + + | 02/14/ | Documentati | [facility] | Work, Social | | | 2020 | on | Clinics at S | | | | | | [facility] [address] | | | | | | [facility] for | | | | | | Health and Healing, | | | | | | [address] | | | | | | [place], [place] | | | | | | [address] | | | | | | [phone] | | | +--------+ + + + [...] this encounter Miscellaneous Notes Telephone Encounter - Janee Bellamy MSW - 02/24/2020 11:14 AM PDTName:Nona Hopper Date: td : 1965 Problem Identified: Insurance issues Received telephone call from patient inquiring about insurance issues. She states that she is transitioning to Medicare and she does not believe that that is as good of coverage as h [facility]. She does state that there is a faa certified powerplant mechanic who is helping her at [facility] in applying for the pieces of the [place] health plan that would assist w ith the [id number] on Medicare. 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 Provided contact information for registration and for our oncology financial correctional classification counselor ors. Plan/Intervention: Social work will plan to be available for support and assistance as shruti hwang. KRIS FAULKNER, [facility] AT [address] [facility], [address] [place] [address] documented in this en counter Plan of Treatment Not on filedocumented as of this encounter Visit Diagnoses Not on filedocumented in this encounter"
--- OUTSIDE RECORDS SUMMARY | ~2020-03-12 | XMS | Encounter Summary ---
Demographics + + + | Address | [address] | | | [place] [address] | + + + | Home Phone [...] Team Providers + +------+ + | Care Wheat Washer Name | Role | Phone | + +------+ + | Meredith Sanchez | PCP | | + +------+ + Reason for Visit + +--------+ + | Reason | Onset | Comments | | | Date | | + +--------+ + | On Treatment Visit | | | | (OTV) | | | + +--------+ + | On Treatment Visit | 04/21/ | | | (OTV) | 2019 | | + +--------+ + AUTH/CERT +--------+--------+ + + + + | Status | Reason | Specialty | Diagnoses / | Referred By | Referred To | | | | | Procedures | Contact | Contact | +--------+--------+ + + + + | | | | | | | +--------+--------+ + + + + Encounter Details +--------+---------+ + + + | Date | Type | Department | Care Team | Description | +--------+---------+ + + + | 04/21/ | Office | Radiation Oncology | Mello Archibald, | Encounter for | | 2019 | Visit | at [facility] [address] | [address] | radiotherapy | | | | [address] | [address] | (Primary Dx) | | | | [place], 4th floor | [place], [place] | | | | | [place], [place] | [address] | | | | | [address] | [phone] | | | | | [phone] | | | +--------+---------+ + + + [...] + + + | Blood Pressure | 142/79 | 04/21/2019 8:21 AM | | | | | PDT | | + + + + + | Pulse | 78 | 04/21/2019 8:21 AM | | | | | PDT | | + + + + + | Temperature | 36.9 C (98.4 F) | 04/21/2019 8:21 AM | | | | | PDT | | + + + + + | Respiratory Rate | 16 | 04/21/2019 8:21 AM | | | | | PDT | | + + + + + | Oxygen Saturation | 97% | 04/21/2019 8:21 AM | | | | | PDT | | + + + + + | Inhaled Oxygen | - | - | | | Concentration | | | | + + + + + | Weight | 70.8 kg (156 lb) | 04/21/2019 8:21 AM | | | | | PDT | | + + + + + | Height | - | - | | + + + + + | Body Mass Index | 27.95 | 04/15/2019 1:50 PM | | | | | PDT [...] documented as of this encounter Progress Notes Mello Archibald MD - 04/21/2019 9:20 AM PDTFormatting of this note might be different f rom the original. Radiation Oncology - On Treatment Visit Note ID: [id number] y.o. 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 We plan for full TBI to 12 Gy in 8 fractions per protocol.. She is here today durin g treatment for an on treatment visit. Planned Total RT Dose: 12 Gy. Current Fraction: 7 of 8. Concurrent Chemotherapy: per BMT SUBJECTIVE: Tolerating conditioning quite well with only minor fatigue. No nausea. OBJECTIVE: Vital Signs: BP 142/79 | Pulse 78 | Temp 36.9 C (98.4 F) | Resp 16 | Wt 70.8 kg (15 6 lb) | SpO2 97% | BMI 27.95 kg/m | BSA 1.77 m Pain Score: Wt Readings from Last 3 Encounters: 04/21/19 71.1 kg (156 lb 12 oz) 04/21/19 70.8 kg (156 lb) 04/14/19 68.9 kg (152 lb) Nona Hopper's mode of transportation is stretcher. Skin: light erythema. LABS: Recent Labs 04/20/19 0127 04/20/19 1540 04/21/19 0022 WBC 3.29* 2.97* 2.14* RBC 3.52* 3.75* 3.56* HB 10.0* 10.7* 10.1* HCT 31.6* 33.4* 31.6* PLT 169 178 162 NEUTROPERC 96.7* 97.0* 94.0* LYMPHPERC 0.9* 0.3* 0.9* MONOPERC 0.3* 0.0* 0.0* BASOPERC 0.3 0.3 0.9 EOSPERC 1.2 0.0* 0.5* Recent Labs 04/19/19 0133 04/19/19 1524 04/20/19 0127 04/21/19 0022 NA 142 -- 142 142 K 2.7* 3.8 3.1* 3.5 CL 105 -- 107 107 BICARB 32 -- 29 29 BUN 10 -- 12 10 CR 0.63 -- 0.52* 0.49* GLU 99 -- 84 101* CA 8.0* -- 7.9* 7.9* AST 17 -- 18 14 ALT 20 -- 20 18 AP 76 -- 90 82 TBILI 0.7 -- 0.4 0.3 TP 5.4* -- 5.5* 5.7* ALB 2.7* -- 2.7* 2.7* ASSESSMENT/PLAN: The patient's chart and films were reviewed. Cont RT. We wish her all the best with transplant. Mello Archibald MD erhiram, AMITA Ko - 04/21/2019 9:20 AM PDT Nursing Note Patient here for an On Treatment Visit. Vitals/Pain Level: BP 142/79 | Pulse 78 | Temp 36.9 C (98.4 F) | Resp 16 | Wt 70.8 kg (156 lb) | SpO2 97% | BMI 27.95 kg/m | BSA 1.77 m Pain Score: Wt Readings from Last 3 Encounters: 04/21/19 70.8 kg (156 lb) 04/21/19 71.1 kg (156 lb 12 oz) 04/14/19 68.9 kg (152 lb) Recent Labs 04/19/19 0133 04/19/19 1524 04/20/19 0127 04/20/19 1540 04/21/19 0022 WBC 5.36 -- < > 3.29* 2.97* 2.14* HB 10.0* -- < > 10.0* 10.7* 10.1* HCT 31.7* -- < > 31.6* 33.4* 31.6* PLT 159 -- < > 169 178 162 BUN 10 -- -- 12 -- 10 CR 0.63 -- -- 0.52* -- 0.49* NA 142 -- -- 142 -- 142 K 2.7* 3.8 -- 3.1* -- 3.5 MG 2.0 -- -- 2.2 -- 2.1 < > = values in this interval not displayed. documented in this enc ounter Plan of Treatment Not on filedocumented as of this encounter Visit Diagnoses + + | Diagnosis | + + | Encounter for radiotherapy - Primary Radiotherapy | + + documented in this encounter"
--- OUTSIDE RECORDS SUMMARY | ~2020-03-12 | XMS | Encounter Summary ---
Demographics + + + | Address | [address] | | | [place] [address] | + + + | Home Phone | | + + + | Preferred Language | Unknown | + + + | Marital Status | Single | + + + | Orthodox Affiliation | NRP | + + + | Race | White | + + + | Ethnic Group | Not or | + + + Author + + + | Author | [facility] | + + + | Organization | [facility] | + + + | Address | Unknown | + + + | Phone | Unavailable | + + + Support + + +---------+ + | Name | Relationship | Address | Phone | + + +---------+ + | Claudia Cota | ECON | Unknown | | + + +---------+ + Care Team Providers + +------+ + | Care Pilot Fuel Engineer Name | Role | Phone | + +------+ + | Meredith Sanchez | PCP | | + +------+ + Reason for Visit + +--------+ + | Reason | Onset | Comments | | | Date | | + +--------+ + | Appointment | 01/25/ | | | Cancelled By Patient | 2018 | | + +--------+ + Encounter Details +--------+ + + + + | Date | Type | Department | Care Team | Description | +--------+ + + + + | 01/25/ | Telephone | [facility] | Sejal De La Torre | Appointment | | 2019 | | Clinics at S | N, DO [address] | Cancelled By Patient | | | | [facility] [address] | | | | | [facility] | [place], [place] | | | | | Health and Healing, | [address] | | | | | [address] | [phone] | | | | | [place], [place] | | | | | | [address] | | | | | | [phone] | | | +--------+ + + + [...] this encounter Miscellaneous Notes Telephone Encounter - Rebeca Portillo MA - 01/25/2019 5:20 PM PDTAppointments canceled per P atient request. elephone Encounter - Rebeca Portillo MA - 01/25/2019 5:20 PM PDT----- Message from Sejal De La Torre DO sent at 01/25/2019 4:11 PM PDT ----- She can cancel if she wants. I am still trying to find a donor and we are currently looking into cord blood options. Annika ----- Message ----- From: Stanislaw Shetty Sent: 01/25/2019 2:36 PM To: Shelby De La Torre [facility] Patient called. She is currently scheduled on 02/03 for an office w/ aniya and BMBX. She said that she got the BMBX in inpt, and Aniya went over the results with her yesterday. She wants to know if she needs to come in on 02/03? Also, She's going to start a Vidaza cycle with their local MD , and wants Thanks, Stanislaw JOHN; patient wants to know if she need to come 02/03? documented in this encou nter Plan of Treatment Not on filedocumented as of this encounter Visit Diagnoses Not on filedocumented in this encounter"
--- OUTSIDE RECORDS SUMMARY | ~2020-03-12 | XMS | Encounter Summary ---
Demographics + + + | Address | [address] | | | [place] [address] | + + + | Home Phone | | + + + | Preferred Language | Unknown | + + + | Marital Status | Single | + + + | Baptist Affiliation | NRP | + + + | Race | White | + + + | Ethnic Group | Not or | + + + Author + + + | Author | [facility] | + + + | Organization | [facility] | + + + | Address | Unknown | + + + | Phone | Unavailable | + + + Support + + +---------+ + | Name | Relationship | Address | Phone | + + +---------+ + | Claudia Cota | ECON | Unknown | | + + +---------+ + Care Team Providers + +------+ + | Care Well Control Instructor Name | Role | Phone | + +------+ + | Meredith Sanchez | PCP | | + +------+ + Encounter Details +--------+ + + + + | Date | Type | Department | Care Team | Description | +--------+ + + + + | 03/10/ | Documentati | [facility] | Work, Social | | | 2019 | on | Clin[facility] at [facility] | | | | | | [facility] [address] | | | | | | [facility] | | | | | | Health and Healing, | | | | | | [address] | | | | | | [place], [place] | | | | | | [address] | | | | | | [phone] | | | +--------+ + + + [...] Telephone Encounter - Janee Bellamy MSW - 03/10/2019 10:22 AM PDTDate: 03/10/2019 Name: Nona Hopper : 1965 Referral received from: Sean Barnard RN, learning center coordinator Purpose of the Interview: Transplant evaluation Current Living Situation:Nona is , and lives in [place] on her niece's property . Nona moved to [place] earlier this year from [place] to be near family when she le arned she was ill. Her main family [place] a brother [place] and her sister's daughter in [place]. Her sister has dementia and lives nearby in assisted living. Current Social Supports: Nona has the support of her niece Angelique Cota ) and a mutual friend, Susan Cornelius, who is going to be Nona's main caregiver. She had a long time boyfriend in [place], however he broke up with her when she became ill. Financial/ Insurance status/ Employment: Ms. Hopper is unemployed. She is in the process of applying for Social Security Disability. 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 She has Medicaid/[facility] Plan Activities / Spirituality: Nona likes to be active and she feels like she has been dealin g with fatigue for quite some time. Medical issues:Nona Hopper is a 53 y.o. female with myelodysplasia who is being eval uated for cord stem cell transplant. She was diagnosed in 2018. PCP: NIURKA Mental health history:Ms. Hopper denies mental health issues. Nona states that she is coping well. She is on anti-depressants. Her physician prescribed them at diagnosis due to her feelings of sadness and tearfulness. She has not had previous depression and feels like she is doing well now. Substance use History: Ms. Hopper denies chemical dependency or addictions. Patient s understanding of Illness/ reason for hospitalization: Nona has a good underst anding of her disease. Her friend and niece were unable to come today, so SETH will speak to Yu Barnard RN about further education for them. Patient s post hospital care plan:Ms. Hopper plans to have her friend and niece be her c aregivers throughout the process. They are planning to go to the BMT education class. They p kenny to stay in the [facility] through the post BMT time. Community Agency Involvement: Patient has OHP and is applying for SSD. SETH recommended that she speak to the Financial Counselors when she finds out about her SSD amount to be assured of continued health coverage. Additional comments: None Advanced Directive/POA/HCR: SETH reviewed an advance directive with patient. She states that her niece would be her health care automotive leasing sales representative and she will work on completing the AD. Recommendations/Plans/Referrals/Impressions: Nona Hopper is a 53 y.o. female who is being evaluated for cord stem cell transplant , for their MDS. Ms. Hopper is . Ms. Hopper is disabled. She is covered by Medicaid/[place] [employer]. Nona denies chemical dependency or mental health issues. She plans on having a friend and her niece be her caregi vers and she will stay at the [facility].They are planning to go to the BMT educat ion class. Plan to have social work follow for support and assistance throughout the transp lant process. KRIS FAULKNER,PASSENGER TIRE BUILDER documented in this en counter Plan of Treatment Not on filedocumented as of this encounter Visit Diagnoses Not on filedocumented in this encounter"
--- OUTSIDE RECORDS SUMMARY | ~2020-03-12 | XMS | Encounter Summary ---
Demographics + + + | Address | [address] | | | [place] [address] | + + + | Home Phone | | + + + | Preferred Language | Unknown | + + + | Marital Status | Single | + + + | Congregational Affiliation | NRP | + + + | Race | White | + + + | Ethnic Group | Not or | + + + Author + + + | Author | [facility] | + + + | Organization | [facility] | + + + | Address | Unknown | + + + | Phone | Unavailable | + + + Support + + +---------+ + | Name | Relationship | Address | Phone | + + +---------+ + | Claudia Cota | ECON | Unknown | | + + +---------+ + Care Team Providers + +------+ + | Care Aviation Maintenance Technician Name | Role | Phone | + +------+ + | Meredith Sanchez | PCP | | + +------+ + Reason for Visit + +--------+ + | Reason | Onset | Comments | | | Date | | + +--------+ + | Refill Request | 04/18/ | | | | 2018 | | + +--------+ + Encounter Details +--------+--------+ + + + | Date | Type | Department | Care Team | Description | +--------+--------+ + + + | 04/18/ | Refill | [facility] | Sejal De La Torre | Refill Request | | 2019 | | Clin[facility] at S | N, DO [address] | | | | | [facility] [address] | | | | | [facility] | [place], [place] | | | | | Health and Healing, | [address] | | | | | [address] | [phone] | | | | | [place], [place] | | | | | | [address] | | | | | | [phone] | | | +--------+--------+ + + + [...] this encounter Miscellaneous Notes Telephone Encounter - Micheal Ji MA - 04/18/2019 4:02 PM PDT documented in this encounter Plan of Treatment Not on filedocumented as of this encounter Visit Diagnoses Not on filedocumented in this encounter"
--- OUTSIDE RECORDS SUMMARY | ~2020-03-12 | XMS | Encounter Summary ---
Demographics + + + | Address | [address] | | | [place] [address] | + + + | Home Phone [...] + + + | Author | [facility] | + + + | Organization | [facility] | + + + | Address | Unknown | + + + | Phone | Unavailable | + + + Support + + +---------+ + | Name | Relationship | Address | Phone | + + +---------+ + | Claudia Cota | ECON | Unknown | | + + +---------+ + Care Team Providers + +------+ + | Care Photographic Equipment Mechanic Name | Role | Phone | + +------+ + | Meredith Sanchez | PCP | | + +------+ + Reason for Referral Physical Therapy (Routine) +--------+--------+ + + + + | Status | Reason | Specialty | Diagnoses / | Referred By | Referred To | | | | | Procedures | Contact | Contact | +--------+--------+ + + + + | Closed | | Physical | Diagnoses | Wil, | Jose Pt Chh1 | | | | Therapy | MDS | Sejal Meadows, | [address] | | | | | (myelodyspla | DO [address] | [facility] | | | | | stic | [address] | for Health | | | | | syndrome) | [address] | and Healing, | | | | | (HCC) | [facility] [place] | Building 1, | | | | | Procedures | [address] | 1st Floor | | | | | PHYSICAL | Phone: | [place], [place] | | | | | THERAPY | [phone] | [address] | | | | | REFERRAL | Fax: | Phone: | | | | | | [phone] | [phone] | | | | | | | Fax: | | | | | | | [phone] | +--------+--------+ + + + + Consultation (Routine) +--------+--------+ + + + + | Status | Reason | Specialty | Diagnoses / | Referred By | Referred To | | | | | Procedures | Contact | Contact | +--------+--------+ + + + + | Closed | | Radiation | Diagnoses | Wil | Óscar Rad | | | | Oncology | MDS | Sejal Meadows, | Medicine Kpv | | | | | (myelodyspla | DO [address] | [address] | | | | | stic | [facility] | [address] | | | | | syndrome) | [address] | Alex | | | | | (HCC) | [place], [place] | [address] | | | | | Procedures | [address] | floor | | | | | CONSULT TO | Phone: | [place], [place] | | | | | RADIATION | [phone] | [address] | | | | | ONCOLOGY | Fax: | Phone: | | | | | | [phone] | [phone] | | | | | | | Fax: | | | | | | | [phone] | +--------+--------+ + + + + Diagnostic Testing (Routine) +--------+--------+ + + + + | Status | Reason | Specialty | Diagnoses / | Referred By | Referred To | | | | | Procedures | Contact | Contact | +--------+--------+ + + + + | Closed | | Cardiology | Diagnoses | S[place]z, | Car Echo | | | | | MDS | Sejal Meadows, | [address] | | | | | (myelodyspla | DO [address] | [address] | | | | | stic | Stephanie Valverde | Stephanie Valverde | | | | | syndrome) | [address] | Adam | | | | | (HCC) | [place], [place] | [facility], 2nd | | | | | Procedures | [address] | floor | | | | | TRANSTHORACI | Phone: | [place], [place] | | | | | C | [phone] | [address] | | | | | ECHOCARDIOGR | Fax: | Phone: | | | | | AM, ADULT | [phone] | [phone] | +--------+--------+ + + + + Encounter Details +--------+ + + + + | Date | Type | Department | Care Team | Description | +--------+ + + + + | 02/25/ | Women'S Ministry Director | 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) | | | | [facility] [address] | (Primary Dx); | | | | [address] [facility] for | [place], [place] | Encounter for | | | | Health and Healing, | [address] | long-term current | | | | Building [address] | [phone] | use of medication | | | | [place], [place] | | | | | | [address] | | | | | | [phone] | | | +--------+ + + + [...] this encounter Miscellaneous Notes Telephone Encounter - Sean Barnard RN - 02/25/2019 5:11 PM PDTPlease schedule the followi itinerary for the following on 03/10 or 03/11 BMX with Flow Cytometry, Cytogenetics with reflex FISH and Genetrails CXR EKG Lab: peripheral line ECHO PFT Pre BMT PT/OT Consult Social Work Eval TBI Consult: Full Consent appointment with MD:Schedule without consent appointment Please email me the itinerary when completed. Thank you, Sean Barnard RN document ed in this encounter Plan of Treatment Not on filedocumented as of this encounter Procedures + +--------+ + + + | Procedure Name | Priori | Date/Time | Associated Diagnosis | Comments | | | ty | | | | + +--------+ + + + | TRANSTHORACIC | Routin | 03/10/2019 | MDS | Results for this | | ECHOCARDIOGRAM, | e | 1:59 PM | (myelodysplastic | procedure are in the | | ADULT | | PDT | syndrome) ([facility]) | results section. | + +--------+ + + + | 12 LEAD ECG | Routin | 03/10/2019 | MDS | Results for this | | | e | 1:53 PM | (myelodysplastic | procedure are in the | | | | PDT | syndrome) ([facility]) | results section. | + +--------+ + + + documented in this encounter Results TRANSTHORACIC ECHOCARDIOGRAM, ADULT (03/10/2019 1:59 PM PDT) + + + + + + | Component | Value | Ref Range | Performed | Pathologist | | | | | At | Signature | + + + + + + | BIPLANE, EF | 63 | | [facility] | | | | | | OF | | | | | | CARDIOLOGY | | + + + + + + | EJECTION | 60 to 65 | | [facility] | | | FRACTION | | | OF | | | | | | CARDIOLOGY | | + + + + + + | LA | 2.6 | | [facility] | | | DIMENSION | | | OF | | | | | | CARDIOLOGY | | + + + + + + | LVIDD | 4.7 | | [facility] | | | | | | OF | | | | | | CARDIOLOGY | | + + + + + + | MV A VMAX | 0.7 | | [facility] | | | | | | OF | | | | | | CARDIOLOGY | | + + + + + + | MV E? | 0.1 | | [facility] | | | | | | OF | | | | | | CARDIOLOGY | | + + + + + + | MV E VMAX | 0.7 | | [facility] | | | | | | OF | | | | | | CARDIOLOGY | | + + + + + + | MV E/E' | 9.8 | | [facility] | | | (MITRAL | | | OF | | | VALVE) | | | CARDIOLOGY | | + + + + + + | MITRAL | 11.4 | | [facility] | | | ANNULUS | | | OF | | | MEDIAL E/E" | | | CARDIOLOGY | | | (TISSUE | | | | | | DOPPLER) | | | | | + + + + + + | RV TAPSE | 1.8 | | [facility] | | | | | | OF | | | | | | CARDIOLOGY | | + + + + + + | RV TDI S? | 16.0 | | [facility] | | | | | | OF | | | | | | CARDIOLOGY | | + + + + + + | EJECTION | 62.5 | % | [facility] | | | FRACTION | | | OF | | | RANGE MEAN | | | CARDIOLOGY | | | VALUE | | | | | + + + + + + + + | Specimen | + + | | + + + +---- + | Narrative | Per formed At | + +---- + | [facility] | [facility] DEPT OF | | [facility] Adult Echocardiography Laboratory [address] | | [address], [place] [address] Ph: | | | Pt Name: ANALY CAMARILLO | | | Study Date/Time 03/10/2019 / 1:59:36 PMMRN: [id number] | | | Most recent prior: 0Acc #: [id number] | | | No. previous echos: 0DOB: 1965 53 years Heart Rate: | | | 69 bpmHeight: 62.0 in Blood Pressure: | | | 126/80 mm/HgWeight: 146.0 lb Gender: | | | FBSA: 1.67 m | | | Order ID: [id number] Study | | | Location: OPSonographer: Liliana ANDERSON, [facility] CENTERReferring Provider: | | | Sejal Lehman Performed: 2D, Color flow, Spectral | | | Doppler, For the precise quantification of LV volumes and ejection | | | fraction, online 3-D reconstruction was clinically indicated and | | | performed under the concurrent supervision of the interpreting | | | motorboat mechanic inboard/outboard. and Strain.Study Quality: Good.Exam Indication: | | | Cardiotoxic TherapiesHistory: MDS Patient history has been obtained | | | from the EHR Transthoracic Echocardiographic Report | | | + + | | | Final Impressions: | | | | | | | | | | | | 1. The left ventricular size is normal. | | | 2. The LV function is normal. | | | 3. The global | | | longitudinal strain is -16.8 % and the LVEF is 63.6 %. | | | | | | | | | 4. Right ventricular | | | size, thickness and function are normal. 5. No significant | | | valvular abnormalities seen. 6. There | | | are no prior exams available for comparison. | | | | | | | | | + | | | -+ Description of Findings: Cardiac Rhythm: Normal sinus rhythm.Left | | | Ventricle: The left ventricular size is normal. Visually estimated | | | left ventricular ejection fraction is 60 - 65%. The global | | | longitudinal strain is -16.8 %. There is no left ventricular | | | hypertrophy. The LV diastolic filling pattern is normal. The ejection | | | fraction is 63.6 % as measured by Shankar's biplane method. The LV | | | function is normal.Left Ventricular Wall Motion: Left ventricular | | | systolic thickening is normal in all segments.Atria: Left atrial size | | | is normal. Normal right atrium.Right Ventricle: Right ventricular | | | size, thickness and function are normal. TAPSE measures 1.8cm. The RV | | | TDI s' velocity is 16cm/sec. Unable to calculate RVSP due to the | | | nature of the TR Jet.Aortic Valve: The aortic valve is trileaflet and | | | normal in structure and function. No indication of aortic valve | | | regurgitation.Mitral Valve: The mitral valve is structurally normal. | | | No evidence of mitral valve stenosis. No evidence of mitral valve | | | regurgitation.Tricuspid Valve: The tricuspid valve is structurally | | | normal. Trace tricuspid regurgitation.Pulmonic Valve: The pulmonic | | | valve is structurally normal. Trace pulmonary valve | | | regurgitation.Aorta: Visualized portions of the ascending aorta and | | | aortic root appear normal.Venous: Inferior vena cava is normal with | | | normal inspiratory collapse.Pericardium: There is significant | | | precordial fat pad present. No pericardial effusion is seen. | | | Additional Findings: There are no prior exams.2D Measurements | | | Doppler Measurements 2D NL Values | | | Aortic MitralLVID(d) 4.66 (3.5-5.7cm) Max Jeroem | | | 1.24 Peak E 0.68 cm | | | m/s m/sLVID(s) 3.16 | | | Mean grad 3.4 Peak A 0.73 cm | | | mmHg | | | m/sIVS(d) 0.74 (0.6-1.1cm) LVOT Jerome 0.91 E/A Ratio | | | 0.94 cm | | | m/sLVPW(d) 0.82 (0.6-1.1cm) LVOT VTI 0.195 TDI (E/e') 9.8 | | | cm mLA A/Ps 2D | | | 2.59 (2.7-3.9cm) LVOT Diam 2.03 MV mn gd cm | | | cmLA vol A/L 18.2 (16-34) | | | LVOT SV 37.7 MR EROindex ml/m | | | indexed ml/m | | | LA vol MOD 29.3 (40-73ml) Tricuspid PulmonicBP | | | ml RA Press 5 RVOT VTILA vol MOD | | | 17.5 (16-34) mmHgindex ml/m | | | LVEDV 43.21 Aorta: | | | Index:index ml/m | | | Ao Sinus 3.46 (2.1-3.5cm)Biplane EF 63.6 % | | | cmGLS % -16.8 | | | %Evaluation of chamber size and geometry is accomplished through the | | | incorporation of linear, volumetric, and indexed values Report | | | electronically signed by: [id number] Yadi Huang MD, PhD | | | (03/10/2019, 2:50:22 PM) Final | | | cm cm | | |LA vol A/L 18.2 (16-34) LVOT SV 37.7 MR ERO | | |index ml/m indexed ml/m | | |LA vol MOD 29.3 (40-73ml) Tricuspid Pulmonic | | |BP ml RA Press 5 RVOT VTI | | |LA vol MOD 17.5 (16-34) mmHg | | |index ml/m | | |LVEDV 43.21 Aorta: Index: | | |index ml/m Ao Sinus 3.46 (2.1-3.5cm) | | |Biplane EF 63.6 % cm | | |GLS % -16.8 | | | % | | |Evaluation of chamber size and geometry is accomplished through the incorporation of | | |linear, volumetric, and indexed values | | | | | |Report electronically signed by: [id number] Yadi Huang MD, PhD (03/10/2019, | | |2:50:22 PM) | | | | | | | | | | | | Final | | + +---- + + + | Procedure Note | + + | Interface, Cardiology Results - 03/10/2019 2:50 PM PDT [facility] | | [facility] [address] [place] [address] | | [place], [place] [address] Pt Name: ANALY MARROQUIN | | MARQUISE Study Date/Time 03/10/2019 / 1:59:36 PMMRN: [id number] Most | | recent prior: 0Acc #: [id number] No. previous echos: 0DOB: 1965 53 | | years Heart Rate: 69 bpmHeight: 62.0 in Blood Pressure: 126/80 | | mm/HgWeight: 146.0 lb Gender: FBSA: 1.67 m | | Order ID: [id number] Study Location: OPSonographer: September | | Adryan ANDERSON, RDCSReferring Provider: Sejal Lehman Performed: 2D, Color | | flow, Spectral Doppler, For the precise quantification of LV volumes and ejection | | fraction, online 3-D reconstruction was clinically indicated and performed under the | | concurrent supervision of the interpreting motorboat mechanic inboard/outboard. and Strain.Study Quality: | | Good.Exam Indication: Cardiotoxic TherapiesHistory: MDS Patient history has been | | obtained from the EHR Transthoracic Echocardiographic | | Report+ +Final | | Impressions: | | | | 1. The left ventricular size is normal. | | 2. The LV function is normal. 3. The global | | longitudinal strain is -16.8 % and the LVEF is 63.6 %. | | | | 4. Right ventricular size, thickness and function are normal. 5. No | | significant valvular abnormalities seen. 6. There are no prior | | exams available for comparison. | | | | + + Description of | | Findings: Cardiac Rhythm: Normal sinus rhythm.Left Ventricle: The left ventricular size | | is normal. Visually estimated left ventricular ejection fraction is 60 - 65%. The global | | longitudinal strain is -16.8 %. There is no left ventricular hypertrophy. The LV | | diastolic filling pattern is normal. The ejection fraction is 63.6 % as measured by | | Shankar's biplane method. The LV function is normal.Left Ventricular Wall Motion: Left | | ventricular systolic thickening is normal in all segments.Atria: Left atrial size is | | normal. Normal right atrium.Right Ventricle: Right ventricular size, thickness and | | function are normal. TAPSE measures 1.8cm. The RV TDI s' velocity is 16cm/sec. Unable to | | calculate RVSP due to the nature of the TR Jet.Aortic Valve: The aortic valve is | | trileaflet and normal in structure and function. No indication of aortic valve | | regurgitation.Mitral Valve: The mitral valve is structurally normal. No evidence of | | mitral valve stenosis. No evidence of mitral valve regurgitation.Tricuspid Valve: The | | tricuspid valve is structurally normal. Trace tricuspid regurgitation.Pulmonic Valve: | | The pulmonic valve is structurally normal. Trace pulmonary valve regurgitation.Aorta: | | Visualized portions of the ascending aorta and aortic root appear normal.Venous: | | Inferior vena cava is normal with normal inspiratory collapse.Pericardium: There is | | significant precordial fat pad present. No pericardial effusion is seen. Additional | | Findings: There are no prior exams.2D Measurements Doppler Measurements | | 2D NL Values Aortic MitralLVID(d) 4.66 (3.5-5.7cm) Max Jerome | | 1.24 Peak E 0.68 cm m/s | | m/sLVID(s) 3.16 Mean grad 3.4 Peak A 0.73 cm | | mmHg m/sIVS(d) 0.74 (0.6-1.1cm) LVOT Jerome 0.91 E/A | | Ratio 0.94 cm m/sLVPW(d) 0.82 (0.6-1.1cm) | | LVOT VTI 0.195 TDI (E/e') 9.8 cm mLA A/Ps 2D 2.59 | | (2.7-3.9cm) LVOT Diam 2.03 MV mn gd cm cmLA vol | | A/L 18.2 (16-34) LVOT SV 37.7 MR EROindex ml/m | | indexed ml/m | | LA vol MOD 29.3 (40-73ml) Tricuspid PulmonicBP ml RA | | Press 5 RVOT VTILA vol MOD 17.5 (16-34) mmHgindex ml/m | | LVEDV 43.21 Aorta: Index:index ml/m | | Ao Sinus 3.46 (2.1-3.5cm)Biplane EF 63.6 % cmGLS | | % -16.8 %Evaluation of chamber size and geometry is accomplished through | | the incorporation of linear, volumetric, and indexed values Report electronically | | signed by: [id number] Yadi Huang MD, PhD (03/10/2019, 2:50:22 PM) Final | | indication of aortic valve regurgitation. | |Mitral Valve: The mitral valve is structurally normal. No evidence of mitral valve | |stenosis. No evidence of mitral valve regurgitation. | |Tricuspid Valve: The tricuspid valve is structurally normal. Trace tricuspid | |regurgitation. | |Pulmonic Valve: The pulmonic valve is structurally normal. Trace pulmonary valve | |regurgitation. | |Aorta: Visualized portions of the ascending aorta and aortic root appear normal. | |Venous: Inferior vena cava is normal with normal inspiratory collapse. | |Pericardium: There is significant precordial fat pad present. No pericardial effusion | | is seen. | | | |Additional Findings: There are no prior exams. | |2D Measurements Doppler Measurements | | | | 2D NL Values Aortic Mitral | |LVID(d) 4.66 (3.5-5.7cm) Max Jerome 1.24 Peak E 0.68 | | cm m/s m/s | |LVID(s) 3.16 Mean grad 3.4 Peak A 0.73 | | cm mmHg m/s | |IVS(d) 0.74 (0.6-1.1cm) LVOT Jerome 0.91 E/A Ratio 0.94 | | cm m/s | |LVPW(d) 0.82 (0.6-1.1cm) LVOT VTI 0.195 TDI (E/e') 9.8 | | cm m | |LA A/Ps 2D 2.59 (2.7-3.9cm) LVOT Diam 2.03 MV mn gd | | cm cm | |LA vol A/L 18.2 (16-34) LVOT SV 37.7 MR ERO | |index ml/m indexed ml/m | |LA vol MOD 29.3 (40-73ml) Tricuspid Pulmonic | |BP ml RA Press 5 RVOT VTI | |LA vol MOD 17.5 (16-34) mmHg | |index ml/m | |LVEDV 43.21 Aorta: Index: | |index ml/m Ao Sinus 3.46 (2.1-3.5cm) | |Biplane EF 63.6 % cm | |GLS % -16.8 | | % | |Evaluation of chamber size and geometry is accomplished through the incorporation of | |linear, volumetric, and indexed values | | | |Report electronically signed by: [id number] Yadi Huang MD, PhD (03/10/2019, | |2:50:22 PM) | | | | | | | | Final | + + + + + + + | Performing | Address | City/State/Zipcode | Phone Number | | Organization | | | | + + + + + | [facility] | [address] | [place], [place] | | | CARDIOLOGY | [address] | [address] | | + + + + + 12 LEAD ECG (03/10/2019 1:53 PM PDT) + + + + + + | Component | Value | Ref Range | Performed | Pathologist | | | | | At | Signature | + + + + + + | VENTRICULAR | 69 | bpm | [facility] | | | RATE | | | OF | | | | | | CARDIOLOGY | | + + + + + + | ATRIAL RATE | 69 | ms | [facility] | | | | | | OF | | | | | | CARDIOLOGY | | + + + + + + | P-R | 111 | ms | [facility] | | | INTERVAL | | | OF | | | | | | CARDIOLOGY | | + + + + + + | P AXIS | 15 | deg | [facility] | | | | | | OF | | | | | | CARDIOLOGY | | + + + + + + | QRS | 85 | ms | [facility] | | | DURATION | | | OF | | | | | | CARDIOLOGY | | + + + + + + | QT | 420 | ms | [facility] | | | | | | OF | | | | | | CARDIOLOGY | | + + + + + + | QTC-BAZETT | 449 | ms | [facility] | | | | | | OF | | | | | | CARDIOLOGY | | + + + + + + | R AXIS | -18 | deg | [facility] | | | | | | OF | | | | | | CARDIOLOGY | | + + + + + + | T AXIS | 45 | deg | [facility] | | | | | | OF | | | | | | CARDIOLOGY | | + + + + + + | ECG | Sinus rhythm- NORMAL ECG | | [facility] | | | IMPRESSION | - | | OF | | | | | | CARDIOLOGY | | + + + + + + | ECG | Electronically signed | | [facility] | | | IMPRESSION | by: CASANDRA KILPATRICK | | OF | | | | 03-10-2019 16:19:18 | | CARDIOLOGY | | + + + + + [...] + + + + + | [facility] | [address] | [place], [place] | | | CARDIOLOGY | [facility] | [address] | | + + + + + SPIROMETRY, PULM FUNCTION LAB (03/10/2019 11:32 AM PDT) + + + + + + | Component | Value | Ref Range | Performed | Pathologist | | | | | At | Signature | + + + + + + | PULMONARY | Site: [facility] | | [facility] | | | INTERPRETAT | [facility], [address] | [address] | | | [address] | [address] | DIAGNOSTICS | | | | [address],[place], [place], | | - | | | | [address]BW: [id number] | | PULMONARY | | | | Name: CARENArben ANALY | | FUNCTION | | | | ANNVisit Date: | | | | | | 03/10/2019 Second ID: | | | | | | [id number]: | | | | | | Palm, DanielleAge: 53 | | | | | | : 1965 Sex: | | | | | | Female Race: | | | | | | CaucasianHeight: 159.00 | | | | | | Cms Weight: 66.00 | | | | | | Kgs BSA: 1.68Order | | | | | | IDs: [id number] | | | | | | Test(s): | | | | | | <SPIROMETRY>Diagnosis: | | | | | | D46.9MDSDyspnea: No | | | | | | Dyspnea Cough: No | | | | | | Cough Wheeze: No | | | | | | WheezeTbco Prod: | | | | | | Cigarette Yrs Smk: | | | | | | 28.0 Pks/Day: 1.5 | | | | | | Yrs [...] | | | | | | | 3.28 | | | | | | 2.86 87FEV1 (L) | | | | | | | | | | | | 2.57 1.98 | | | | | | 76FEV1/FVC (%) | | | | | | | | | | | | 79 69 | | | | | | 87FEF 25% (L/sec) | | | | | | 4.97 | | | | | | 3.96 79FEF 50% | | | | | | (L/sec) | | | | | | 3.80 1.47 | | | | | | 38FEF 75% (L/sec) | | | | | | | | | | | | 1.34 0.44 | | | | | | 32FEF 25-75% (L/sec) | | | | | | 2.51 | | | | | | 1.21 48FEF Max | | | | | | (L/sec) | | | | | | 6.36 6.90 | | | | | | 108FIVC (L) | | | | | | | | | | | | 2.80FIF | | | | | | 50% (L/sec) | | | | | | 4.74 | | | | | | 3.72 78FIF Max | | | | | | (L/sec) | | | | | | | | | | | | 4.54Expiratory Time | | | | | | (sec) | | | | | | 6.82Back Extrap | | | | | | Vol (L) | | | | | | 0.07Time | | | | | | To FEFmax (sec) | | | | | | | | | | | | 0.067LUNG | | | | | | VOLUMESDIFFUSIONDLCOunc | | | | | | (ml/min/mmHg) | | | | | | 21.69 16.78 | | | | | | 77DLCOadj | | | | | | (ml/min/mmHg) | | | | | | 21.69 16.83 | | | | | | 77DL/VA | | | | | | (ml/min/mmHg/L) | | | | | | 4.48 3.57 | | | | | | 79VA (L) | | | | | | | | | | | | 4.84 4.72 | | | | | | 97BHT (sec) | | | | | | | | | | | | 10.63IVC (L) | | | | | | | | | | | | | | | | | | 2.71TLC (SB) (L) | | | | | | | | | | | | 4.87BLOOD | | | | | | GASESHgb (gm/dL) | | | | | | | | | | | | 13.3 | | | | | | Interpretation: | | | | | | SPIROMETRY:Spirometry | | | | | | shows moderate airflow | | | | | | obstruction indicated by | | | | | | a reduced FEV1/FVC. | | | | | | DIFFUSING CAPACITY:The | | | | | | diffusing capacity is | | | | | | mildly reduced. This | | | | | | interpretation of | | | | | | diffusingcapacity takes | | | | | | into account the | | | | | | patient's hemoglobin | | | | | | level. Hemoglobin of | | | | | | 13.3was used.This | | | | | | interpretation has been | | | | | | electronically signed: | | | | | | Jose Alberto Constantino | | | | | | 03/24/201910:07:23 AM | | | | + + + + + + | FVC PRE | 2.86 | 3.28 L | [facility] | | | | | | SPECIAL | | | | | | DIAGNOSTICS | | | | | | - | | | | | | PULMONARY | | | | | | FUNCTION | | + + + + + + | FVC PRE | 87 | % | [facility] | | | (%REF) | | | SPECIAL | | | | | | DIAGNOSTICS | | | | | | - | | | | | | PULMONARY | | | | | | FUNCTION | | + + + + + + | FEV1 PRE | 1.98 | 2.57 L | [facility] | | | | [...] + + + | PEF PRE | 6.90 | 6.36 L/sec | [facility] | | | | | | SPECIAL | | | | | | DIAGNOSTICS | | | | | | - | | | | | | PULMONARY | | | | | | FUNCTION | | + + + + + + | PEF PRE | 108 | % | [facility] | | | (%REF) | | | SPECIAL | | | | | | DIAGNOSTICS | | | | | | - | | | | | | PULMONARY | | | | | | FUNCTION | | + + + + + + | [id number]% | 1.21 | 2.51 L/sec | [facility] | | | PRE | | | SPECIAL | | | | | | DIAGNOSTICS | | | | | | - | | | | | | PULMONARY | | | | | | FUNCTION | | + + + + + + | [id number]% | 48 | % | [facility] | | | PRE (%REF) | | | SPECIAL | | | | | | DIAGNOSTICS | | | | | | - | | | | | | PULMONARY | | | | | | FUNCTION | | + + + + + + | FIF50% PRE | 3.72 | 4.74 L/sec | [facility] | | | | | | SPECIAL | | | | | | DIAGNOSTICS | | | | | | - | | | | | | PULMONARY | | | | | | FUNCTION | | + + + + + + | FIF50% PRE | 78 | % | [facility] | | | (%REF) | | | SPECIAL | | | | | | DIAGNOSTICS | | | | | | - | | | | | | PULMONARY | | | | | | FUNCTION | | + + + + + + | DLCO PRE | 16.78 | 21.69 | [facility] | | | | | ml/min/mmHg | SPECIAL | | | | | | DIAGNOSTICS | | | | | | - | | | | | | PULMONARY | | | | | | FUNCTION | | + + + + + + | DLCO PRE | 77 | % | [facility] | | | (%REF) | | | SPECIAL | | | | | | DIAGNOSTICS | | | | | | - | | | | | | PULMONARY | | | | | | FUNCTION | | + + + + + + | DLCO ADJ | 16.83 | 21.69 | [facility] | | | PRE | | ml/min/mmHg | SPECIAL | | | | | | DIAGNOSTICS | | | | | | - | | | | | | PULMONARY | | | | | | FUNCTION | | + + + + + + | DLCO ADJ | 77 | % | [facility] | | | PRE (%REF) | | | SPECIAL | | | | | | DIAGNOSTICS | | | | | | - | | | | | | PULMONARY | | | | | | FUNCTION | | + + + + + + | DLCO/VA ADJ | 3.57 | ml/min/mmHg/L | [facility] | | | PRE | | | SPECIAL | | | | | | DIAGNOSTICS | | | | | | - | | | | | | PULMONARY | | | | | | FUNCTION | | + + + + + + | DLCO/VA ADJ | 79 | % | [facility] | | | [...] [facility] | [id number] | [place], [place] | | | DIAGNOSTICS - | [address] [place] | [id number] | | | PULMONARY FUNCTION | | | | + + + + + X-RAY CHEST 2 VIEW (03/09/2019 12:02 PM PDT) + + | Specimen | + + | | + + + + + | Narrative | Performed At | + + + | EXAM: CHEST 2 VIEWS HISTORY: Pre- stem cell/BMT transplant work | [facility] | | up COMPARISON: Chest radiograph from 01/14/2019. FINDINGS: | RADIOLOGY VOICE | | Interval removal of left upper extremity PICC. The lungs are | RECOGNITION 2 | | clear without focal consolidation or pulmonary edema. There is no | | | pleural effusion or pneumothorax. The cardiomediastinal contour is | | | normal. No acute osseous abnormality. IMPRESSION: Clear | | | lungs. I have personally reviewed the images and, if necessary, | | | edited the report. I agree with the report as now presented. | | | Final signature: Nathalie Araujo MD 03/09/2019 2:37 PM Preliminary: | | | Kris Abdalla MD Dictation initiated: Kris Abdalla MD | | | 03/09/2019 12:21 PM | | + + + + ---+ | Procedure Note | + ---+ | Service Account, Radiant Res In Interface - 03/09/2019 3:17 PM PDT EXAM: CHEST 2 | | VIEWS HISTORY: Pre- stem cell/BMT transplant work up COMPARISON: Chest radiograph from | | 01/14/2019. FINDINGS: Interval removal of left upper extremity PICC. The lungs are clear | | without focal consolidation or pulmonary edema. There is no pleural effusion or | | pneumothorax. The cardiomediastinal contour is normal. No acute osseous abnormality. | | IMPRESSION: Clear lungs. I have personally reviewed the images and, if necessary, edited | | the report. I agree with the report as now presented. Final signature: Nathalie Araujo, | | 03/09/2019 2:37 PM Preliminary: Kris Abdalla MD Dictation initiated: Kris | Arsalan Abdalla MD 03/09/2019 12:21 PM | | | |The lungs are clear without focal consolidation or pulmonary edema. There is no pleural eff usion or pneumothorax. The cardiomediastinal contour is normal. No acute osseous abnormality . | | | |IMPRESSION: | | | |Clear lungs. | | | |I have personally reviewed the images and, if necessary, edited the report. I agree with e report as now presented. | | | |Final signature: Nathalie Araujo MD 03/09/2019 2:37 PM | |Preliminary: Kris Abdalla MD | |Dictation initiated: Kris Abdalla MD 03/09/2019 12:21 PM | + ---+ + +---------+ + + | Performing | Address | City/State/Zipcode | Phone Number | | Organization | | | | + +---------+ + + | [facility] | | | | | [facility] | | | | + +---------+ + + documented in this encounter Visit Diagnoses + + | Diagnosis | + + | MDS (myelodysplastic syndrome) (HCC) - Primary Myelodysplastic syndrome, unspecified | + + | Encounter for long-term current use of medication | + + documented in this encounter
--- OUTSIDE RECORDS SUMMARY | ~2020-03-12 | XMS | Encounter Summary ---
Demographics + + + | Address | [address] | | | [place] [address] | + + + | Home Phone | | + + + | Preferred Language | Unknown | + + + | Marital Status | Single | + + + | Gnosticist Affiliation | NRP | + + + [...] Team Providers + +------+ + | Care Pulmonary Physical Therapist Name | Role | Phone | + +------+ + | Meredith Sanchez | PCP | | + +------+ + Encounter Details +--------+ + + + + | Date | Type | Department | Care Team | Description | +--------+ + + + + | 01/17/ | Pharmacy | Outpatient [facility] | | | | 2019 | Visit | [facility] | | | | | | [address] | | | | | | [place], [place] | | | | | | [address] | | | | | | [phone] | | | +--------+ + + + [...]
--- OUTSIDE RECORDS SUMMARY | ~2020-03-12 | XMS | Encounter Summary ---
Demographics + + + | Address | [address] | | | [place] [address] | + + + | Home Phone | | + + + | Preferred Language | Unknown | + + + | Marital Status | Single | + + + | Presybeterian Affiliation | NRP | + + + | Race | White | + + + | Ethnic Group | Not or | + + + Author + + + | Author | [facility] | + + + | Organization | [facility] | + + + | Address | Unknown | + + + | Phone | Unavailable | + + + Support + + +---------+ + | Name | Relationship | Address | Phone | + + +---------+ + | Claudia Cota | ECON | Unknown | | + + +---------+ + Care Team Providers + +------+ + | Care Non Morse Intercept Technician Name | Role | Phone | + +------+ + | Meredith Sanchez | PCP | | + +------+ + Encounter Details +--------+ + + + + | Date | Type | Department | Care Team | Description | +--------+ + + + + | 07/26/ | Targeteer | [facility] | Sejal De La Torre | | | 2019 | | Clinics at S | N, DO [address] | | | | | [facility] [address] | | | | | [facility] [place] [facility] | [place], [place] | | | | | [facility], | [address] | | | | | [address] | [phone] | | | | | [place], [place] | | | | | | [address] | | | | | | [phone] | | | +--------+ + + + [...] this encounter Miscellaneous Notes Telephone Encounter - Sejal De La Torre DO - 07/26/2019 10:53 AM PSTCalled patient but no answer. Labs reviewed from 07/25/19. Tacrolimus dose will stay the same. Will decrease KCL t o 30 mEQ daily. docu mented in this encounter Plan of Treatment Not on filedocumented as of this encounter Visit Diagnoses Not on filedocumented in this encounter"
--- OUTSIDE RECORDS SUMMARY | ~2020-03-12 | XMS | Encounter Summary ---
Demographics + + + | Address | [address] | | | [place] [address] | + + + | Home Phone | | + + + | Preferred Language | Unknown | + + + | Marital Status | Single | + + + | Christianity Affiliation | NRP | + + + [...] Team Providers + +------+ + | Care Ornamental Plasterer Helper Name | Role | Phone | + +------+ + | Meredith Sanchez | PCP | | + +------+ + Reason for Visit +--------+--------+ + | Reason | Onset | Comments | | | Date | | +--------+--------+ + | Other | 02/08/ | question on referral to ophthalmology | | | 2020 | | +--------+--------+ + Encounter Details +--------+ + + + + | Date | Type | Department | Care Team | Description | +--------+ + + + + | 02/08/ | Telephone | [facility] | Sejal De La Torre | Other (question on | | 2020 | | Clin[facility] at S | N, DO [address] | referral to | | | | [facility] [address] | ophthalmology ) | | | | [facility] for | [place], [place] | | | | | Health and [facility], | [address] | | | | | [place] [address] | [phone] | | | | | [place], [place] | | | | | | [address] | | | | | | [phone] | | | +--------+ + + + [...] in contact | No / Unsure | 02/02/2020 9:30 AM | | with someone who was [...] this encounter Miscellaneous Notes Telephone Encounter - Rosalie Donovan - 02/09/2020 2:02 PM PDTPatient called in and is isaiah alvarado about the referral to ophthalmology and should she give them a call since she has not gill en a call about getting in to see someone in that department. Please give her a call and let her know what she needs to do if anything. 20 2:06 PM PDTdocumented in this encounter Plan of Treatment Not on filedocumented as of this encounter Visit Diagnoses Not on filedocumented in this encounter"
--- OUTSIDE RECORDS SUMMARY | ~2020-03-12 | XMS | Encounter Summary ---
Demographics + + + | Address | [address] | | | [place] [address] | + + + | Home Phone [...] Author + + + | Author | [facility] | + + + | Organization | [facility] | + + + | Address | Unknown | + + + | Phone | Unavailable | + + + Support + + +---------+ + | Name | Relationship | Address | Phone | + + +---------+ + | Claudia Cota | ECON | Unknown | | + + +---------+ + Care Team Providers + +------+ + | Care Watch Assembly Instructor Name | Role | Phone | + +------+ + | Meredith Sanchez | PCP | | + +------+ + Encounter Details +--------+ + + + + | Date | Type | Department | Care Team | Description | +--------+ + + + + | 04/18/ | Pharmacy | Specialty Pharmacy | | | | 2019 | Visit | Services [address] | | | | | | [address] | | | | | | [place], [place] | | | | | | [address] | | | | | | [phone] | | | +--------+ + + + [...]
--- OUTSIDE RECORDS SUMMARY | ~2020-03-12 | XMS | Encounter Summary ---
Demographics + + + | Address | [address] | | | [place] [address] | + + + | Home Phone | | + + + | Preferred Language | Unknown | + + + | Marital Status | Single | + + + | Pentecostal Affiliation | NRP | + + + | Race | White | + + + | Ethnic Group | Not or | + + + Author + + + | Author | [facility] | + + + | Organization | [facility] | + + + | Address | Unknown | + + + | Phone | Unavailable | + + + Support + + +---------+ + | Name | Relationship | Address | Phone | + + +---------+ + | Claudia Cota | ECON | Unknown | | + + +---------+ + Care Team Providers + +------+ + | Care Propeller Tester Name | Role | Phone | + +------+ + | Meredith Sanchez | PCP | | + +------+ + Reason for Visit + + + | Reason | Comments | + + + | Infusion | magnesium | + + + | Packed blood cell | | | transfusion | | + + + Other (Routine) [...] | | stic | [facility] | | [facility] | syndrome) | [address] | Health and | | | | | (HCC) | [place], [place] | Healing, | | | | | Procedures | [address] | [address] | | | | | [place] | Phone: | [place], [place] | | | | | OFFICE/OUTPT | [phone] | [address] | | | | | | Fax: | Phone: | | | | | VISIT,EST,LE | [phone] | [phone] | | | | | VL IV SC | | Fax: | | | | | EST PATIENT | | [phone] | | | | | LEVEL V | | | +--------+--------+ + + + + Encounter Details +--------+ + + + + | Date | Type | Department | Care Team | Description | +--------+ + + + + | 05/24/ | Hospital | [facility] | | | | 2019 | Encounter | [facility] | | | | | | [facility] [address] | | | | | | [facility] | | | | | [facility], | | | | | | [address] | | | | | | [place], [place] | | | | | | [address] | | | | | | [phone] | | | +--------+ + + + [...] + + + | Blood Pressure | 122/68 | 05/24/2019 12:41 PM | | | | | PST | | + + + + + | Pulse | 78 | 05/24/2019 12:41 PM | | | | | PST | | + + + + + | Temperature | 36.7 C (98 F) | 05/24/2019 12:41 PM | | | | | PST | | + + + + + | Respiratory Rate | 18 | 05/24/2019 12:41 PM | | | | | PST | | + + + + + | Oxygen Saturation | 97% | 05/24/2019 12:41 PM | | | | | PST | | + + + + + | Inhaled Oxygen | - | - | | | Concentration | | | | + + + + + | Weight | 63 kg (139 lb) | 05/24/2019 9:40 AM | | | | | PST | | + + + + + | Height | - | - | | + + + + + | Body Mass Index | 24.91 | 04/15/2019 1:50 PM | | | [...] documented as of this encounter Progress Notes Marj Reyes RN - 05/24/2019 9:20 AM PST Assessment Patient arrives to clinic walking independently. Patient states she is feeling fatigue toda y. 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 Patient has no new complaints. Nursing Assessment: Fever/Chills/Infection: No SOB / Cough: No Dizziness/Lightheaded/Fatigue: Yes, fatigue Signs/Symptoms Bleeding: No Neuropathy: No Mucositis: No Nausea/Vomiting: Yes, Appetite: Good appetite. Diarrhea/Constipation: No PO Fluid Intake: 2L/day. Rash/Skin sores/Edema: No Urinary Issues: No Pain: No Lab Groshong accessed per protocol. Good blood return noted. Appropriate waste discarded. Meghna portillo drawn and sent. Groshong pulse flushed with 20 mL NS. Immunosuppressant Patient reports holding their dose of tacrolimus today. They report taking 1 mg AM and 1 mg pm. This matches the medication list. Confirmed with patient and caregiver that we have the correct contact number for their medication change calls. Dressing Change Groshong intact, due to be changed next Thursday, 05/29. Education For education provided, see education tab. Supportive Care Magnesium Magnesium Sulfate 4 gm in 100 mL NS infused over 2 hours per supportive care orders for a m agnesium level of 1.3. For infusion details, see AUG. Transfusion/Infusion Lab Results Component Value Date HCT 20.5 05/24/2019 HB 7.3 05/24/2019 Orders to transfuse PRBC product for a Hematocrit today as above. Type and cross for 1 uni ts of PRBC was sent to Blood Bank. Each unit was checked by two RNs to confirm the unit num wendy, ABO and Rh type printed on tag matched information on blood bag and to confirm crossmat ch compatibility. At the bedside, two RNs verified the correct patient using two unique tai ntifiers, confirmed the unit number, ABO and Rh type printed on tag matched the information on blood bag and confirmed crossmatch compatibility. Informed consent was verified. The patient was not premedicated. She received 1 unit of PRBCs per Provider s orders. T ransfusion was tolerated well without complication. Frequent vital signs were monitored thr oughout the transfusion and reviewed by me. For transfusion details, see ONC Lines & Transf usions doc flowsheet. Order placed for HLA-matched platelets- per [facility], no platelets today but possibly tomorrow if platelets arrive by then. Discharge Line care provided, see Flowsheet for details. Patient was instructed to check out at the f ront desk prior to leaving the clinic. Patient d/c d ambulatory in stable condition. Next appointment scheduled 05/25/19 at 11:40 am. Marj Reyes RN documented in this enco unter Plan of Treatment Not on filedocumented as of this encounter Procedures + +--------+ + + + | Procedure Name | Priori | Date/Time | Associated Diagnosis | Comments | | | ty | | | | + +--------+ + + + | PRODUCT - PLATELET | Routin | 05/24/2019 | MDS | Results for this | | PHERESIS | e | 10:56 AM | (myelodysplastic | procedure are in the | | LEUKOREDUCED | | PST | syndrome) ([facility]) | results section. | + +--------+ + + + | HB-LAB CROSSMATCH, | Routin | 05/24/2019 | MDS | Results for this | | IMMEDIATE SPIN | e | 10:36 AM | (myelodysplastic | procedure are in the | | | | PST | syndrome) ([facility]) | results section. | + +--------+ + + + | [facility] - MAGNESIUM, | Routin | 05/24/2019 | MDS | Results for this | | PLASMA | e | 9:36 AM | (myelodysplastic | procedure are in the | | | | PST | syndrome) ([facility]) | results section. | + +--------+ + + + | [facility] - PHOSPHORUS, | Routin | 05/24/2019 | MDS | Results for this | | PLASMA | e | 9:36 AM | (myelodysplastic | procedure are in the | | | | PST | syndrome) ([facility]) | results section. | + +--------+ + + + | [facility] - LDH TOTAL, | Routin | 05/24/2019 | MDS | Results for this | | PLASMA | e | 9:36 AM | (myelodysplastic | procedure are in the | | | | PST | syndrome) ([facility]) | results section. | + +--------+ + + + | CBC AND AUTO DIFF | Routin | 05/24/2019 | MDS | Results for this | | | e | 9:36 AM | (myelodysplastic | procedure are in the | | | | PST | syndrome) ([facility]) | results section. | + +--------+ + + + | VERITO-LORENZO VIRUS | Routin | 05/24/2019 | MDS | Results for this | | PCR, PLASMA | e | 9:36 AM | (myelodysplastic | procedure are in the | | | | PST | syndrome) ([facility]) | results section. | + +--------+ + + + | [facility] - COMPLETE | Routin | 05/24/2019 | MDS | Results for this | | METABOLIC SET | e | 9:36 AM | (myelodysplastic | procedure are in the | | | | PST | syndrome) ([facility]) | results section. | + +--------+ + + + | [facility] CBC W | Routin | 05/24/2019 | MDS | Results for this | | DIFFERENTIAL | e | 9:36 AM | (myelodysplastic | procedure are in the | | | | PST | syndrome) ([facility]) | results section. | + +--------+ + + + | LYMPHOCYTE | Routin | 05/24/2019 | Hx of allogeneic | Results for this | | ACTIVATION(LYMPH | e | 9:36 AM | stem cell transplant | procedure are in the | | RECONSTITUTION/ACTIV | | PST | ([facility]) | results section. | | ATE),BLOOD | | | | | + +--------+ + + + | CMV PCR | Routin | 05/24/2019 | MDS | Results for this | | QUANTITATION, PLASMA | e | 9:36 AM | (myelodysplastic | procedure are in the | | | | PST | syndrome) ([facility]) | results section. | + +--------+ + + + | TACROLIMUS, WHOLE | Routin | 05/24/2019 | MDS | Results for this | | BLOOD | e | 9:36 AM | (myelodysplastic | procedure are in the | | | | PST | syndrome) ([facility]) | results section. | + +--------+ + + + | HUMAN HERPES VIRUS 6 | Routin | 05/24/2019 | MDS | Results for this | | PCR (PLASMA OR CSF) | e | 9:36 AM | (myelodysplastic | procedure are in the | | | | PST | syndrome) ([facility]) | results section. | + +--------+ + + + documented in this encounter Results PRODUCT - PLATELET PHERESIS LEUKOREDUCED (05/24/2019 10:56 AM PST) + + + + + + | Component | Value | Ref Range | Performed | Pathologist | | | | | At | Signature | + + + + + + | PRODUCT | APHERESIS | | [facility] | | | DESCRIPTION | PLATELETS,PAS,LEUKOREDUC | | LABORATORY | | | | ED,IRRADIATED | | SERVICES, | | | | | | TRANSFUSION | | | | | | MEDICINE | | + + + + + + | PRODUCT | [id number] | | [facility] | | | UNIT # | | | LABORATORY | | | | | | SERVICES, | | | | | | TRANSFUSION | | | | | | MEDICINE | | + + + + + + | UNIT ABO | A | | [facility] | | | | | | LABORATORY | | | | | | SERVICES, | | | | | | TRANSFUSION | | | | | | MEDICINE | | + + + + + + | UNIT RH | POS | | [facility] | | | | | | LABORATORY | | | | | | SERVICES, | | | | | | TRANSFUSION | | | | | | MEDICINE | | + + + + + + | STATUS OF | Returned to Blood Bank | | [facility] | | | UNIT | | | LABORATORY | | | | | | SERVICES, | | | | | | TRANSFUSION | | | | | | MEDICINE | | + + + + + + | EXPIRATION | [id number] | | [facility] | | | DATE | | | LABORATORY | | | | | | SERVICES, | | | | | | TRANSFUSION | | | | | | MEDICINE | | + + + + + + | BLOOD TYPE | [phone] | | [facility] | | | BARCODE | | | LABORATORY | | | | | | SERVICES, | | | | | | TRANSFUSION | | | | | | MEDICINE | | + + + + + + | BLOOD | [id number] | | [facility] | | | PRODUCT | | | LABORATORY | | | CODE | | | SERVICES, | | | | | | TRANSFUSION | | | | | | MEDICINE | | + + + + + + + + | Specimen | + + | | + + + + + + + | Performing | Address | City/State/Zipcode | Phone Number | | Organization | | | | + + + + + | [facility] | [address] | [place] [address] | | | SERVICES, | [address] | | | | TRANSFUSION MEDICINE | | | | + + + + + PRODUCT - RED CELLS LEUKOREDUCED (05/24/2019 10:36 AM PST) + + + + + + | Component | Value | Ref Range | Performed | Pathologist | | | | | At | Signature | + + + + + + | PRODUCT | -1 RED BLOOD CELLS | | [facility] | | | DESCRIPTION | LEUKOREDUCED IRRADIATED | | LABORATORY | | | | | | SERVICES, | | | | | | TRANSFUSION | | | | | | MEDICINE | | + + + + + + | PRODUCT | [id number] | | [facility] | | | UNIT # | | | LABORATORY | | | | | | SERVICES, | | | | | | TRANSFUSION | | | | | | MEDICINE | | + + + + + + | UNIT ABO | O | | [facility] | | | | | | LABORATORY | | | | | | SERVICES, | | | | | | TRANSFUSION | | | | | | MEDICINE | | + + + + + + | UNIT RH | POS | | [facility] | | | | | | LABORATORY | | | | | | SERVICES, | | | | | | TRANSFUSION | | | | | | MEDICINE | | + + + + + + | STATUS OF | Presumed Transfused | | [facility] | | | UNIT | | | LABORATORY | | | | | | SERVICES, | | | | | | TRANSFUSION | | | | | | MEDICINE | | + + + + + + | EXPIRATION | [id number] | | [facility] | | | DATE | | | LABORATORY | | | | | | SERVICES, | | | | | | TRANSFUSION | | | | | | MEDICINE | | + + + + + + | BLOOD TYPE | [phone] | | [facility] | | | BARCODE | | | LABORATORY | | | | | | SERVICES, | | | | | | TRANSFUSION | | | | | | MEDICINE | | + + + + + + | BLOOD | [id number] | | [facility] | | | PRODUCT | | | LABORATORY | | | CODE | | | SERVICES, | | | | | | TRANSFUSION | | | | | | MEDICINE | | + + + + + + + + | Specimen | + + | | + + + + + + + | Performing | Address | City/State/Zipcode | Phone Number | | Organization | | | | + + + + + | [facility] | [address] | [place] [address] | | | SERVICES, | [address] | | | | TRANSFUSION MEDICINE | | | | + + + + + CBC AND AUTO DIFF (05/24/2019 9:36 AM PST) + + + + + + | Component | Value | Ref Range | Performed | Pathologist | | | | | At | Signature | + + + + + + | WHITE CELL | 1.56 (L) | 3.50 - 10.80 | [facility] | | | COUNT | | K/cu mm | LABORATORY | | | | | | SERVICES, | | | | | | [facility] | | | | | | [facility] | | + + + + + + | RED CELL | 2.51 (L) | 4.00 - 5.20 | [facility] | | | COUNT | | M/cu mm | LABORATORY | | | | | | SERVICES, | | | | | | [facility] | [facility] + | | | | | | [facility]ALING | | + + + + + + | HEMOGLOBIN | 7.3 (L) | 12.0 - 16.0 | [facility] | | | | | g/dL | LABORATORY | | | | | | SERVICES, | | | | | | [facility] + | | | | | | [facility]ALING | | + + + + + + | HEMATOCRIT | 20.5 (L) | 36.0 - 46.0 % | [facility] | | | | | | LABORATORY | | | | | | SERVICES, | | | | | | [facility] | [facility] + | | | | | | [facility]ALING | | + + + + + + | MCV | 81.7 | 80.0 - 100.0 fL | [facility] | | | | | | LABORATORY | | | | | | SERVICES, | | | | | | [facility] | [facility] + | | | | | | [facility]ALING | | + + + + + + | MCHC | 35.6 | 32.0 - 36.0 | [facility] | | | | | g/dL | LABORATORY | | | | | | SERVICES, | | | | | | [facility] | [facility] + | | | | | | [facility]ALING | | + + + + + + | RDW SD | 39.9 | 35.1 - 46.3 fL | [facility] | | | | | | LABORATORY | | | | | | SERVICES, | | | | | | [facility] | [facility] + | | | | | | [facility]ALING | | + + + + + + | PLATELET | 14 (L) | 150 - 400 K/cu | [facility] [...] + + + + | NEUTROPHIL | 32.7 (L) | 50.0 - 70.0 % | [facility] [...] + + + | MONOCYTE % | 34.0 (H) | 3.5 - 9.0 % | [facility] | | | | | | LABORATORY | | | | | | SERVICES, | | | | | | [facility] | [facility] + | | | | | | [facility]ALING | | + + + + + + | EOS % | 11.5 (H) | 1.0 - 3.0 % | [facility] | | | | | | LABORATORY | | | | | | SERVICES, | | | | | | [facility] | [facility] + | | | | | | [facility]ALING | | + + + + + + | BASO % | 0.0 | 0.0 - 2.0 % | [facility] | | | | | | LABORATORY | | | | | | SERVICES, | | | | | | [facility] | [facility] + | | | | | | [facility]ALING | | + + + + + + | IG% | 2.6 (H) | 0.0 - 1.0 % | [facility] | | | | | | LABORATORY | | | | | | SERVICES, | | | | | | [facility] | [facility] + | | | | | | [facility]ALING | | + + + + + + | NEUTROPHIL | 0.51 (L) | 1.80 - 7.70 | [facility] | | | # | | K/cu mm | LABORATORY | | | | | | SERVICES, | | | | | | [facility] | | [facility] | [facility] + | | | | | | HEALING | | + + + + + + | NEUTROPHIL | 0.51 (L)Comment: | 1.80 - 7.70 | [facility] | | | # Prelim | Preliminary automated | K/cu mm | LABORATORY | | | | neutrophil result. | | SERVICES, | | | | Refer to Neutrophil # | | [facility]ENTER FOR | | | | for final neutrophil | | HEALTH + | | | | result, which may differ | | HEALING | | | | from this preliminary | | | | | | value. | | | | + + + + + + | LYMPHOCYTE | 0.30 (L) | 1.00 - 4.80 | [facility] | | | # | | K/cu mm | LABORATORY | | | | | | SERVICES, | | | | | | [facility] | [facility] + | | | | | | HEALING | | + + + + + + | MONOCYTE # | 0.53 | 0.10 - 0.90 | [facility] | | | | | K/cu mm | LABORATORY | | | | | | SERVICES, | | | | | | [facility] | | [facility] + | | | | | | HEALING | | + + + + + + | EOS # | 0.18 | 0.00 - 0.50 | [facility] | | | | | K/cu mm | LABORATORY | | | | | | SERVICES, | | | | | | [facility] | | [facility] + | | | | | | HEALING | | + + + + + + | BASO # | 0.00 | 0.00 - 0.10 | [facility] | [...] | + + + + + | [facility] | [address] | [place] [address] | | | [facility] | | | | | HE[facility] + HEALING | | | | + + + + + LYMPHOCYTE ACTIVATION(LYMPH RECONSTITUTION/ACTIVATE),BLOOD (05/24/2019 9:36 AM PST) + + + + + + | Component | Value | Ref Range | Performed | Pathologist | | | | | At | Signature | + + + + + + | T-CELLS(CD3 | 31.331 | 49.0-85.0 % of | [facility] | | | +)% | | Lymphs % of | LABORATORY | | | | | Lymphs | SERVICES, | | | | | | SPECIAL IMM | | | | | | + COAG | | + + + + + + | T-CELLS(CD3 | 94 (L) | [phone] | [facility] | | | +)# | | Cells/uL | LABORATORY | | | | | | SERVICES, | | | | | | SPECIAL IMM | | | | | | + COAG | | + + + + + + | HELPER | 26.808 | 26.0-61.0 % of | [facility] | | | T-CELLS(CD3 | | Lymphs % of | LABORATORY | | | +CD4+)% | | Lymphs | SERVICES, | | | | | | SPECIAL IMM | | | | | | + COAG | | + + + + + + | HELPER | 80 (L) | [phone] | [facility] | | | T-CELLS(CD3 | | Cells/uL | LABORATORY | | | +CD4+)# | | | SERVICES, | | | | | | SPECIAL IMM | | | | | | + COAG | | + + + + + + | CYTOTOXIC | 4.279 | 10.0-31.0 % of | [facility] | | | T-CELLS(CD3 | | Lymphs % of | LABORATORY | | | +CD8+)% | | Lymphs | SERVICES, | | | | | | SPECIAL IMM | | | | | | + COAG | | + + + + + + | CYTOTOXIC | 13 (L) | 59 - 699 | [facility] | | | T-CELLS(CD3 | | Cells/uL | LABORATORY | | | +CD8+)# | | | SERVICES, | | | | | | SPECIAL IMM | | | | | | + COAG | | + + + + + + | CD4:CD8 | 6.265 (H) | 1.000 - 3.600 | [facility] | | | RATIO | | Ratio | LABORATORY | | | | | | SERVICES, | | | | | | SPECIAL IMM | | | | | | + COAG | | + + + + + + | T-REG(4+127 | 0.926 | <10.000 % of | [facility] | | | -[id number]+) | | Lymphs | LABORATORY | | | % | | | SERVICES, | | | | | | SPECIAL IMM | | | | | | + COAG | | + + + + + + | T-REG(4+127 | 3 | Cells/uL | [facility] | | | -[id number]+) | | | LABORATORY | | | # | | | SERVICES, | | | | | | SPECIAL IMM | | | | | | + COAG | | + + + + + + | DNT-CELLS(C | 0.175 | <6.000 % of | [facility] | | | D3+CD4-CD8- | | Lymphs | LABORATORY | | | )% | | | SERVICES, | | | | | | SPECIAL IMM | | | | | | + COAG | | + + + + + + | DNT-CELLS(C | 1 | Cells/uL | [facility] | | | D3+CD4-CD8- | | | LABORATORY | | | )# | | | SERVICES, | | | | | | SPECIAL IMM | | | | | | + COAG | | + + + + + + | TCRAB | 0.053 | <=1.500 % of | [facility] | | | DNT-CELLS(3 | | Lymphs | LABORATORY | | | +AB+4-8-)% | | | SERVICES, | | | | | | SPECIAL IMM | | | | | | + COAG | | + + + + + + | TCRAB | 0 | Cells/uL | [facility] | | | DNT-CELLS(3 | | | LABORATORY | | | +AB+4-8-)# | | | SERVICES, | | | | | | SPECIAL IMM | | | | | | + COAG | | + + + + + + | TCR AB | 99.164 (H) | 90.000 - 99.000 | [facility] | | | T(CD3+AB+)% | | % of T Cells | LABORATORY | | | OF T-CELLS | | | SERVICES, | | | | | | SPECIAL IMM | | | | | | + COAG | | + + + + + + | TCR AB | 93 | Cells/uL | [facility] | | | T(CD3+AB+)# | | | LABORATORY | | | | | | SERVICES, | | | | | | SPECIAL IMM | | | | | | + COAG | | + + + + + + | TCR GD | 0.334 | <10.000 % of T | [facility] | | | T(CD3+GD+)% | | Cells | LABORATORY | | | OF T-CELLS | | | SERVICES, | | | | | | SPECIAL IMM | | | | | | + COAG | | + + + + + + | TCR GD | 0 | Cells/uL | [facility] | | | T(CD3+GD+)# | | | LABORATORY | | | | | | SERVICES, | | | | | | SPECIAL IMM | | | | | | + COAG | | + + + + + + | MODIFIED | 0.000 | % of Lymphs | [facility] | | | T-CELLS(CD3 | | | LABORATORY | | | +CD19+)% | | | SERVICES, | | | | | | SPECIAL IMM | | | | | | + COAG | | + + + + + + | MODIFIED | 0 | Cells/uL | [facility] | | | T-CELLS | | | LABORATORY | | | (CD3+CD19+) | | | SERVICES, | | | # | | | SPECIAL IMM | | | | | | + COAG | | + + + + + + | CD4+ | 0.000 | % of Lymphs | [facility] | | | MODIFIED | | | LABORATORY | | | T-CELLS% | | | SERVICES, | | | | | | SPECIAL IMM | | | | | | + COAG | | + + + + + + | CD4+ | 0 | Cells/uL | [facility] | | | MODIFIED | | | LABORATORY | | | T-CELLS# | | | SERVICES, | | | | | | SPECIAL IMM | | | | | | + COAG | | + + + + + + | CD8+ | 0.000 | % of Lymphs | [facility] | | | MODIFIED | | | LABORATORY | | | T-CELLS% | | | SERVICES, | | | | | | SPECIAL IMM | | | | | | + COAG | | + + + + + + | CD8+ | 0 | Cells/uL | [facility] | | | MODIFIED | | | LABORATORY | | | T-CELLS# | | | SERVICES, | | | | | | SPECIAL IMM | | | | | | + COAG | | + + + + + + | NA VE | 66.535 | % of T Cells | [facility] | | | T(CD3+CD45R | | | LABORATORY | | | A+)% OF | | | SERVICES, | | | T-CELLS | | | SPECIAL IMM | | | | | | + COAG | | + + + + + + | NA VE | 62 | Cells/uL | [facility] | | | T(CD3+CD45R | | | LABORATORY | | | A+)# | | | SERVICES, | | | | | | SPECIAL IMM | | | | | | + COAG | | + + + + + + | MEMORY | 34.200 | % of T Cells | [facility] | | | T(CD3+CD45R | | | LABORATORY | | | O+)% OF | | | SERVICES, | | | T-CELLS | | | SPECIAL IMM | | | | | | + COAG | | + + + + + + | MEMORY | 32 | Cells/uL | [facility] | | | T(CD3+CD45R | | | LABORATORY | | | O+)# | | | SERVICES, | | | | | | SPECIAL IMM | | | | | | + COAG | | + + + + + + | T-CELL | 0.336 | <10.000 % of | [facility] | | | ACTIVATION( | | Lymphs | LABORATORY | | | CD3+CD69+)% | | | SERVICES, | | | | | | SPECIAL IMM | | | | | | + COAG | | + + + + + + | T-CELL | 1 | Cells/uL | [facility] | | | ACTIVATION( | | | LABORATORY | | | CD3+CD69+)# | | | SERVICES, | | | | | | SPECIAL IMM | | | | | | + COAG | | + + + + + + | T-CELL | 0.858 | <10.000 % of | [facility] | | | ACTIVATION( | | Lymphs | LABORATORY | | | CD3+HLA-DR+ | | | SERVICES, | | | )% | | | SPECIAL IMM | | | | | | + COAG | | + + + + + + | T-CELL | 3 | Cells/uL | [facility] | | | ACTIVATION( | | | LABORATORY | | | CD3+HLA-DR+ | | | SERVICES, | | | )# | | | SPECIAL IMM | | | | | | + COAG | | + + + + + + | PD1 | 3.786 | <50.000 % of | [facility] | | | T-CELL(CD3+ | | Lymphs | LABORATORY | | | PD1+)% | | | SERVICES, | | | | | | SPECIAL IMM | | | | | | + COAG | | + + + + + + | PD1 | 11 | Cells/uL | [facility] | | | T-CELL(CD3+ | | | LABORATORY | | | PD1+)# | | | SERVICES, | | | | | | SPECIAL IMM | | | | | | + COAG | | + + + + + + | PD1 HELPER | 9.893 | % of T Cells | [facility] | | | T OF | | | LABORATORY | | | T-CELLS % | | | SERVICES, | | | | | | SPECIAL IMM | | | | | | + COAG | | + + + + + + | PD1 HELPER | 9 | Cells/uL | [facility] | | | T # | | | LABORATORY | | | | | | SERVICES, | | | | | | SPECIAL IMM | | | | | | + COAG | | + + + + + + | PD1 | 1.300 | % of T Cells | [facility] | | | CYTOTOXIC T | | | LABORATORY | | | OF T-CELLS | | | SERVICES, | | | % | | | SPECIAL IMM | | | | | | + COAG | | + + + + + + | PD1 | 1 | Cells/uL | [facility] | | | CYTOTOXIC T | | | LABORATORY | | | # | | | SERVICES, | | | | | | SPECIAL IMM | | | | | | + COAG | | + + + + + + | T-NK(CD3+CD | 0.433 | <8.000 % of | [facility] | | | 56+)% | | Lymphs | LABORATORY | | | | | | SERVICES, | | | | | | SPECIAL IMM | | | | | | + COAG | | + + + + + + | T-NK(CD3+CD | 1 | Cells/uL | [facility] | | | 56+)# | | | LABORATORY | | | | | | SERVICES, | | | | | | SPECIAL IMM | | | | | | + COAG | | + + + + + + | TOTAL | 60.571 | 5.000-28.000 % | [facility] | | | NK-CELLS(CD | | of Lymphs % of | LABORATORY | | | 3-CD56+)% | | Lymphs | SERVICES, | | | | | | SPECIAL IMM | | | | | | + COAG | | + + + + + + | TOTAL | 181 | 71 - 499 | [facility] | | | NK-CELLS(CD | | Cells/uL | LABORATORY | | | 3-CD56+)# | | | SERVICES, | | | | | | SPECIAL IMM | | | | | | + COAG | | + + + + + + | B-CELLS(CD1 | 0.098 | 4.000-17.000 % | [facility] | | | 9+)% | | of Lymphs % of | LABORATORY | | | | | Lymphs | SERVICES, | | | | | | SPECIAL IMM | | | | | | + COAG | | + + + + + + | B-CELLS(CD1 | 0 (L) | 32 - 341 | [facility] | | | 9+)# | | Cells/uL | LABORATORY | | | | | | SERVICES, | | | | | | SPECIAL IMM | | | | | | + COAG | | + + + + + + | IGD+27-NA | 40.000 (L) | 50.000 - 80.000 | [facility] | | | VE B-CELLS | | % of B Cells | LABORATORY | | | OF B-CELL% | | | SERVICES, | | | | | | SPECIAL IMM | | | | | | + COAG | | + + + + + + | IGD+27+NON- | 0.000 (L) | 5.000 - 21.000 | [facility] | | | SWITCHED B | | % of B Cells | LABORATORY | | | OF B CELL% | | | SERVICES, | | | | | | SPECIAL IMM | | | | | | + COAG | | + + + + + + | IGD-27+SWIT | 20.000 | 5.000 - 24.000 | [facility] | | | CHED MEMORY | | % of B Cells | LABORATORY | | | B OF | | | SERVICES, | | | B-CELL% | | | SPECIAL IMM | | | | | | + COAG | | + + + + + + | B1 | 0.039 | <6.000 % of | [facility] | | | B-CELLS(CD5 | | Lymphs | LABORATORY | | | +CD19+)% | | | SERVICES, | | | | | | SPECIAL IMM | | | | | | + COAG | | + + + + + + | B1 | 0 | Cells/uL | [facility] | | | B-CELLS(CD5 | | | LABORATORY | | | +CD19+)# | | | SERVICES, | | | | | | SPECIAL IMM | | | | | | + COAG | | + + + + + + | KAPPA/GEOVANNY | Comment: Not applicable | | [facility] | | | A RATIO | | | LABORATORY | | | | | | SERVICES, | | | | | | SPECIAL IMM | | | | | | + COAG | | + + + + + + | MYELOID | 37.462 | 50.0-70.0 % of | [facility] | | | CELLS(16+13 | | WBC % of WBC | LABORATORY | | | +)% | | | SERVICES, | | | | | | SPECIAL IMM | | | | | | + COAG | | + + + + + + | MYELOID | 584 (L) | 1,800-7,700 | [facility] | | | CELLS(16+13 | | Cells/uL | LABORATORY | | | +)# | | | SERVICES, | | | | | | SPECIAL IMM | | | | | | + COAG | | + + + + + + | MONOCYTES(1 | 21.210 | 3.5-9.0 % of | [facility] | | | 4+13+)% | | WBC % of WBC | LABORATORY | | | | | | SERVICES, | | | | | | SPECIAL IMM | | | | | | + COAG | | + + + + + + | MONOCYTES(1 | 331 | 100 - 900 | [facility] | | | 4+13+)# | | Cells/uL | LABORATORY | | | | | | SERVICES, | | | | | | SPECIAL IMM | | | | | | + COAG | | + + + + + + | MDCS % | 2.439 (H) | <=2.000 % of | [facility] | | | | | WBC | LABORATORY | | | | | | SERVICES, | | | | | | SPECIAL IMM | | | | | | + COAG | | + + + + + + | MDCS # | 38 | 4-32 Cells/uL | [facility] | | | | | Cells/uL | LABORATORY | | | | | | SERVICES, | | | | | | SPECIAL IMM | | | | | | + COAG | | + + + + + + | PDCS % | 0.310 | <=2.000 % of | [facility] | | | | | WBC | LABORATORY | | | | | | SERVICES, | | | | | | SPECIAL IMM | | | | | | + COAG | | + + + + + + | PDCS # | 5 | 1-20 Cells u/L | [facility] | | | | | Cells/uL | LABORATORY | | | | | | SERVICES, | | | | | | SPECIAL IMM | | | | | | + COAG | | + + + + + + + + | Specimen | + + | Blood - Blood | | (substance) | + + + + + | Narrative | Performed At | + + + | Reviewed and electronically signed by Sb Ybarra MD,PhD | [facility] | | 05/28/2019 7:21 PM My electronic signature indicates that I | LABORATORY | | have personally reviewed and interpreted the flow cytometric data | SERVICES, | | pertaining to this case. Immunophenotyping and enumeration of | SPECIAL IMM + | | lymphocyte subpopulations are performed using following antibodies: | COAG | | CD3 CD4 CD5 CD8 CD11c CD13 | | | CD14 CD16 CD19 CD25 CD27 CD56 CD45RA | | | CD45RO CD45 CD69 CD123 CD127 PD1(CD279) HLA-DR IgD | | | TCR a/b TCR g/d Whitney Lambda (Analyte specific reagents are | | | used in many laboratory tests necessary for standard medical care. | | | This test was developed and its performance characteristics determined | | | by [employer]. It has not been cleared or approved by the [place] | | | Food and Drug Administration (FDA). FDA does not require this test to | | | go through premarket FDA review. This test is used for clinical | | | purposes. It should not be regarded as investigational or for | | | research. The laboratory is certified under the Clinical Laboratory | | | Improvement Amendments (CLIA) as qualified to perform high complexity | | | clinical laboratory testing. | | + + + + + + + + | Performing | Address | City/State/Zipcode | Phone Number | | Organization | | | | + + + + + | [facility] | [address] | [place] [address] | | | SERVICES, SPECIAL | JASON [...] [facility] | | | | to the [facility] | | | | | | Test Directory for | | | | | | validated specimen | | | | | | source information: | | | | | | [email or web address] | | | | | | esting. [...] PTH - [facility] | | | | Way, [place] [address] | | | | | | [phone]. | | | | | | Zeferino [...] A: | | | | | | [email or web address] | | | | + + + [...] [facility] | [address] | [place], [place] | | | [facility] | | [id number] | | + + + + + VERITO-LORENZO VIRUS PCR, PLASMA (05/24/2019 9:36 AM PST) + + + + + + | Component | Value | Ref Range | Performed | Pathologist | | | | | At | Signature | + + + + + + | EBV QUANT | Undetected | Undetected, | [facility] | | | BY PCR, | | [...] we have completed a quantitative polymerase | [facility] | | chain reaction (PCR) based study [...] | | performance characteristics determined by the [facility] Molecular | | | Diagnostics Center. It has not been cleared or approved by the Food | | | and Drug Administration. FDA approval is not required for clinical | | | use of this test, and therefore validation was done as required under | | | the requirements of the Clinical Laboratory Improvement Act of 1988. | | | The [facility] is a fully licensed and/or accredited clinical laboratory | | | under CLIA, CAP, and the [facility]. References: 1) | | | Phong et [...] | | real-time polymerase chain reaction. Transfusion 2008;48:[id number]. | | | 4) Bassam BEARDEN, Genny CASAS, Félix I, van keshia Bisanaz W, et al. | | | Frequent monitoring of Veriot-Lorenzo virus DNA load in unfractionated | | | whole blood is essential for early detection of posttransplant | | | lymphoproliferative disease in high-risk patients. Blood | | | 2001;97(5):8616-1192. | | + + + + + + + + | Performing | Address | City/State/Zipcode | Phone Number | | Organization | | | | + + + + + | [facility] | [address] | [place] [address] | | | DIAGNOSTIC | [address] [...] (L) | 1.6 - 2.6 mg/dL | [facility] | | | LASMA | | | [...] + + + + + | [facility] | [address] | [place] [address] | | | [facility] [place] [facility] | | | | | [facility] + [facility]AL[facility] | | | | + + + + + [facility] - COMPLETE METABOLIC SET (05/24/2019 9:36 AM [...] | | | LABORATORY | | | [place] | | | SERVICES, | | | [...] MDRD equation recommended by the National | [facility] | | Kidney Disease Education Program. [...] | + + + + + | [facility] | [address] | [place] [address] | | | SERVICES, [place] [facility] | | | | | HEALTH [...] LABORATORY | [address] | [place] [address] | | | SERVICES, [facility] | | | | [...] | + + + + + | [facility] | [address] | [place] [address] | | | SERVICES, [place] [facility] | | | | | HEALTH [...] CMV DNA | Undetected | Undetected, | [facility] | | | QUANTITATIO | | Undetected [...] 2 fold may not reflect true | [facility] | | biological changes and must be [...] | | | characteristics determined by the [facility] | | | Molecular Diagnostic Center. It has not been cleared or approved by | | | the Food and Drug Administration. FDA approval is not required for | | | clinical use of this test, and therefore validation was done as | | | required under the requirements of the Clinical Laboratory Improvement | | | Act of 1988. The [facility] Molecular | | | Diagnostic Center is a fully licensed and/or accredited clinical | | | laboratory under CLIA, CAP, and the [facility]. | | + + + + + + + + | Performing | Address | City/State/Unm Hospitalcode | Phone Number | | Organization | | | | + + + + + | [facility] | [address] | [place] [address] | | | DIAGNOSTIC | [address] | | | | LABORATORIES | | | | + + + + + TACROLIMUS, WHOLE BLOOD (05/24/2019 9:36 AM PST) [...] | Test performed by immunoassay using [employer] i2000. . | [facility] | | Samples [...] | + + + + + | [facility] | [address] | [place] [address] | | | SERVICES, SPECIAL | JASON GUTIERREZ | | | | IMM + COAG | | | | + + + + + documented in this encounter Visit Diagnoses + + | Diagnosis | + + | MDS (myelodysplastic syndrome) (HCC) - Primary Myelodysplastic syndrome, unspecified | + + | Hx of allogeneic stem cell transplant (HCC) | + + documented in this encounter Administered Medications + +---------+ +------+------+------+ | Medication Order | MAR | Action | Dose | Rate | Site | | | Action | Date | | | | + +---------+ +------+------+------+ | magnesium sulfate in water IV | New Bag | 05/24/20 | 2 g | | | | (RTU) 2 g 2 g, intravenous, | | 19 10:03 | | | | | ONCE, 1 dose, Thomas 05/24/19 at | | AM PST | | | | | 0945 | | | | | | + +---------+ +------+------+------+ +---+---+ | | | +---+---+ + +---------+ +-----+---+---+ | magnesium sulfate in water IV | New Bag | 05/24/20 | 2 g | | | | (RTU) 2 g 2 g, intravenous, | | 19 10:42 | | | | | ONCE, 1 dose, 05/24/19 at | | AM PST | | | | | 1045 | | | | | | + +---------+ +-----+---+---+ +---+---+ | | | +---+---+ documented in this encounter"
--- OUTSIDE RECORDS SUMMARY | ~2020-03-12 | XMS | Encounter Summary ---
Demographics + + + | Address | [address] | | | [place] [address] | + + + | Home Phone | | + + + | Preferred Language | Unknown | + + + | Marital Status | Single | + + + | Moravian Affiliation | NRP | + + + | Race | White | + + + | Ethnic Group | Not or | + + + Author + + + | Author | [facility] | + + + | Organization | [facility] | + + + | Address | Unknown | + + + | Phone | Unavailable | + + + Support + + +---------+ + | Name | Relationship | Address | Phone | + + +---------+ + | Claudia Cota | ECON | Unknown | | + + +---------+ + Care Team Providers + +------+ + | Care Handicraft Or Hobby Shop Manager Name | Role | Phone | + +------+ + | Meredith Sanchez | PCP | | + +------+ + Reason for Visit + + + | Reason | Comments | + + + | Hydration | | + + + | Schedule labs | | + + + | Electrolyte | | | Abnormalities | | + + + Other (Routine) [...] | | | | | syndrome) | [facility] | Health and | | | | | (HCC) | [place], [place] | Healing, | | | | | Procedures | [address] | [address] | | | | | NE | Phone: | [place], [place] | | | | | OFFICE/OUTPT | [phone] | [address] | | | | | | Fax: | Phone: | | | | | VISIT,EST,LE | [phone] | [phone] | | | | | VL IV NE | | Fax: | | | | | EST PATIENT | | [phone] | | | | | LEVEL V | | | +--------+--------+ + + + + Encounter Details +--------+ + + + + | Date | Type | Department | Care Team | Description | +--------+ + + + + | 06/13/ | Hospital | [facility] | | | | 2019 | Encounter | Clinics at S | | | | | | [facility] [address] | | | | | | [facility] | | | | | | Health and Healing, | | | | | | [address] | | | | | | [place], [place] | | | | | | [address] | | | | | | [phone] | | | +--------+ + + + [...] + + + | Blood Pressure | 114/64 | 06/13/2019 9:24 AM | | | | | PST | | + + + + + | Pulse | 82 | 06/13/2019 9:24 AM | | | | | PST | | + + + + + | Temperature | 36.8 C (98.2 F) | 06/13/2019 9:24 AM | | | | | PST | | + + + + + | Respiratory Rate | 16 | 06/13/2019 9:24 AM | | | | | PST | | + + + + + | Oxygen Saturation | 96% | 06/13/2019 9:24 AM | | | | | PST | | + + + + + | Inhaled Oxygen | - | - | | | Concentration | | | | + + + + + | Weight | 60.2 kg (132 lb 12.8 | 06/13/2019 9:24 AM | | | | oz) | PST | | + + + + + | Height | - | - | | + + + + + | Body Mass Index | 23.8 | 04/15/2019 1:50 PM | | | [...] tablet by | 60 | 11 | 05/18/ | | | mg oral tablet | mouth two times | tablet | | 19 | | | | daily. | | | | | + + + +---------+ + + documented as of this encounter Progress Tisha Nelson RN - 06/13/2019 9:10 AM PST INFUSION NURSING NOTE Allergies: Nona is allergic to cefepime and sulfa (sulfonamide antibiotics). 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 Nursing Assessment: Fever/Chills/Infection: No SOB / Cough: No Dizziness/Lightheaded/Fatigue: Yes, feels lightheaded in the morning usually. Signs/Symptoms Bleeding: No Neuropathy: No Mucositis: No Nausea/Vomiting: Yes, nausea with diarrhea. Appetite: Inadequate. Diarrhea/Constipation: Yes, diarrhea controlled at home with imodium. PO Fluid Intake: Less than 2L. Rash/Skin sores/Edema: No Urinary Issues: No Pain: No Vascular Access: Groshong accessed per protocol. Good blood return noted. Appropriate waste discarded. Meghna bs drawn and sent. Groshong pulse flushed with 20 mL NS. Per Orders: Infusion Plan: -1L NS given IV over 1 hr for low PO intake. -8g Magnesium Sulfate given IV over 4 hrs for a magnesium level of 1.1. -40 mEq KCL given PO and 20 mEq KCL given IV over 2 hrs for a potassium level of 2.7. Supportive Plan: No orders. Chemo Plan: No orders. Patient was reminded to call clinic with temp > 100.4, chills, s/s of bleeding or uncontrol led N/V/D/C. Patient d/c d ambulatory with her caregiver. Tisha Anton RN documented in this encounter Plan of Treatment Not on filedocumented as of this encounter Procedures + +--------+ + + + | Procedure Name | Priori | Date/Time | Associated Diagnosis | Comments | | | ty | | | | + +--------+ + + + | ANTIBODY SCREEN | Urgent | 06/13/2019 | MDS | Results for this | | | | 9:24 AM | (myelodysplastic | procedure are in the | | | | PST | syndrome) ([facility]) | results section. | + +--------+ + + + | TYPE AND SCREEN | Urgent | 06/13/2019 | MDS | Results for this | | | | 9:24 AM | (myelodysplastic | procedure are in the | | | | PST | syndrome) ([facility]) | results section. | + +--------+ + + + | ABO & RH TYPE | Urgent | 06/13/2019 | MDS | Results for this | | | | 9:24 AM | (myelodysplastic | procedure are in the | | | | PST | syndrome) ([facility]) | results section. | + +--------+ + + + | [facility] - MAGNESIUM, | Routin | 06/13/2019 | MDS | Results for this | | PLASMA | e | 9:22 AM | (myelodysplastic | procedure are in the | | | | PST | syndrome) ([facility]) S/P | results section. | | | | | cord blood | | | | | | transplantation | | + +--------+ + + + | [facility] - PHOSPHORUS, | Routin | 06/13/2019 | MDS | Results for this | | PLASMA | e | 9:22 AM | (myelodysplastic | procedure are in the | | | | PST | syndrome) ([facility]) S/P | results section. | | | | | cord blood | | | | | | transplantation | | + +--------+ + + + | [facility] - LDH TOTAL, | Routin | 06/13/2019 | MDS | Results for this | | PLASMA | e | 9:22 AM | (myelodysplastic | procedure are in the | | | | PST | syndrome) ([facility]) S/P | results section. | | | | | cord blood | | | | | | transplantation | | + +--------+ + + + | CBC AND AUTO DIFF | Routin | 06/13/2019 | MDS | Results for this | | | e | 9:22 AM | (myelodysplastic | procedure are in the | | | | PST | syndrome) ([facility]) S/P | results section. | | | | | cord blood | | | | | | transplantation | | + +--------+ + + + | VERITO-SEVILLA VIRUS | Routin | 06/13/2019 | MDS | Results for this | | PCR, PLASMA | e | 9:22 AM | (myelodysplastic | procedure are in the | | | | PST | syndrome) ([facility]) S/P | results section. | | | | | cord blood | | | | | | transplantation | | + +--------+ + + + | [facility] - COMPLETE | Routin | 06/13/2019 | MDS | Results for this | | METABOLIC SET | e | 9:22 AM | (myelodysplastic | procedure are in the | | | | PST | syndrome) ([facility]) S/P | results section. | | | | | cord blood | | | | | | transplantation | | + +--------+ + + + | [facility] CBC W | Routin | 06/13/2019 | MDS | Results for this | | DIFFERENTIAL | e | 9:22 AM | (myelodysplastic | procedure are in the | | | | PST | syndrome) ([facility]) S/P | results section. | | | | | cord blood | | | | | | transplantation | | + +--------+ + + + | CMV PCR | Routin | 06/13/2019 | MDS | Results for this | | QUANTITATION, PLASMA | e | 9:22 AM | (myelodysplastic | procedure are in the | | | | PST | syndrome) ([facility]) S/P | results section. | | | | | cord blood | | | | | | transplantation | | + +--------+ + + + | TACROLIMUS, WHOLE | Routin | 06/13/2019 | MDS | Results for this | | BLOOD | e | 9:22 AM | (myelodysplastic | procedure are in the | | | | PST | syndrome) ([facility]) S/P | results section. | | | | | cord blood | | | | | | transplantation | | + +--------+ + + + | HUMAN HERPES VIRUS 6 | Routin | 06/13/2019 | MDS | Results for this | | PCR (PLASMA OR CSF) | e | 9:22 AM | (myelodysplastic | procedure are in the | | | | PST | syndrome) ([facility]) S/P | results section. | | | | | cord blood | | | | | | transplantation | | + +--------+ + + + documented in this encounter Results ANTIBODY SCREEN (06/13/2019 9:24 AM PST) + + + + + + | Component | Value | Ref Range | Performed | Pathologist | | | | | At | Signature | + + + + + + | Antibody | Negative | | [facility] | | | Screen | | | LABORATORY | | | [...] + | [facility] | [address] | [place] [address] | | | SERVICES, | [address] | | | | TRANSFUSION MEDICINE | | | | + + + + + ABO & RH TYPE (06/13/2019 9:24 AM PST) + + + + + + | Component | Value | Ref Range | Performed | Pathologist | | | | | At | Signature | + + + + + + | ABO Group | A | | [facility] | | | | | | LABORATORY | | | | | | SERVICES, | | | | | | TRANSFUSION | | | | | | MEDICINE | | + + + + + + | Rh Type | Positive | | [facility] | | | | [...] + | [facility] | [address] | [place] [address] | | | SERVICES, | [address] | | | | TRANSFUSION MEDICINE | | | | + + + + + CBC AND AUTO DIFF (06/13/2019 9:22 AM PST) + + + + + + | Component | Value | Ref Range | Performed | Pathologist | | | | | At | Signature | + + + + + + | WHITE CELL | 2.78 (L) | 3.50 - 10.80 | [facility] | | | COUNT | | K/cu mm | LABORATORY | | | | | | SERVICES, | | | | | | [facility] | [facility] + | | | | | | HEALING | | + + + + + + | RED CELL | 3.33 (L) | 4.00 - 5.20 | [facility] | | | COUNT | | M/cu mm | LABORATORY | | | | | | SERVICES, | | | | | | [facility] | | [facility] + | | | | | | HEALING | | + + + + + + | HEMOGLOBIN | 9.7 (L) | 12.0 - 16.0 | [facility] | | | | | g/dL | LABORATORY | | | | | | SERVICES, | | | | | | [facility] | | | [facility] + | | | | | | HEALING | | + + + + + + | HEMATOCRIT | 29.2 (L) | 36.0 - 46.0 % | [facility] | | | | | | LABORATORY | | | | | | SERVICES, | | | | | | [facility] | | | [facility] + | | | | | | HEALING | | + + + + + + | MCV | 87.7 | 80.0 - 100.0 fL | [facility] | | | | | | LABORATORY | | | | | | SERVICES, | | | | | | [facility] | | | [facility] + | | | | | | HEALING | | + + + + + + | MCHC | 33.2 | 32.0 - 36.0 | [facility] | | | | | g/dL | LABORATORY | | | | | | SERVICES, | | | | | | [facility] | | | [facility] + | | | | | | HEALING | | + + + + + + | RDW SD | 52.2 (H) | 35.1 - 46.3 fL | [facility] | | | | | | LABORATORY | | | | | | SERVICES, | | | | | | [facility] | | | [facility] + | | | | | | HEALING | | + + + + + + | PLATELET | 98 (L)Comment: | 150 - 400 K/cu | [facility] | | | COUNT | Macroplatelets present. | mm | LABORATORY | | | [...] + + + + | NEUTROPHIL | 56.5 | 50.0 - 70.0 % | [facility] | | | % | | | LABORATORY | | | | | | SERVICES, | | | | | | [facility] | | | [facility] + | | | | | | HEALING | | + + + + + + | LYMPHOCYTE | 11.5 (L) | 18.0 - 42.0 % | [facility] | | | % | | | LABORATORY | | | | | | SERVICES, | | | | | | [facility] | | [facility] + | | | | | | HEALING | | + + + + + + | MONOCYTE % | 22.3 (H) | 3.5 - 9.0 % | [facility] | | | | | | LABORATORY | | | | | | SERVICES, | | | | | | [facility] | | [facility] + | | | | | | HEALING | | + + + + + + | EOS % | 8.6 (H) | 1.0 - 3.0 % | [facility] | | | | | | LABORATORY | | | | | | SERVICES, | | | | | | [facility] | | [facility] + | | | | | | HEALING | | + + + + + + | BASO % | 0.4 | 0.0 - 2.0 % | [facility] | | | | | | LABORATORY | | | | | | SERVICES, | | | | | | [facility] | | | | [facility] + | | | | | | HEALING | | + + + + + + | IG% | 0.7 | 0.0 - 1.0 % | [facility] | | | | | | LABORATORY | | | | | | SERVICES, | | | | | | [facility] | [facility] | | | | [facility] + | | | | | | HEALING | | + + + + + + | NEUTROPHIL | 1.57 (L) | 1.80 - 7.70 | [facility] | | | # | | K/cu mm | LABORATORY | | | | | | SERVICES, | | | | | | [facility] | | | | [facility] + | | | | | | HEALING | | + + + + + + | NEUTROPHIL | 1.57 (L)Comment: | 1.80 - 7.70 | [facility] [...] + + + + | LYMPHOCYTE | 0.32 (L) | 1.00 - 4.80 | [facility] | | | # | | K/cu mm | LABORATORY | | | | | | SERVICES, | | | | | | [facility] | | | | | | [facility] + | | | | | | HEALING | | + + + + + + | MONOCYTE # | 0.62 | 0.10 - 0.90 | [facility] | | | | | K/cu mm | LABORATORY | | | | | | SERVICES, | | | | | | [facility] | | | [facility] + | | | | | | HEALING | | + + + + + + | EOS # | 0.24 | 0.00 - 0.50 | [facility] | [...] + + + + | IG# | 0.02 | 0.00 - 0.10 | [facility] | [...] [facility] | [address] | [place] [address] | | | [facility] | | | | [facility] + HEALING | | | | + + + + + [facility] - MAGNESIUM, PLASMA (06/13/2019 9:22 AM PST) + +---------+ + + + | Component | Value | Ref Range | Performed | Pathologist | | | | | At | Signature | + +---------+ + + + | MAGNESIUM,P | 1.1 (L) | 1.6 - 2.6 mg/dL | [facility] | | | LASMA | | | LABORATORY | | | | | | SERVICES, | | | | | | [facility] | | | | | | [...] LABORATORY | [address] | [place] [address] | | | [facility] | | | | | HEALTH + HEALING | | | | + + + + + [facility] - PHOSPHORUS, PLASMA (06/13/2019 9:22 AM PST) + +-------+ + + + | Component | Value | Ref Range | Performed | Pathologist | | | | | At | Signature | + +-------+ + + + | PHOSPHORUS, | 3.8 | 2.4 - 4.7 mg/dL | [facility] [...] | + + + + + | [facility] | [address] | [place] [address] | | | SERVICES, [facility] | | | | | HEALTH + HEALING | | | | + + + + + [facility] - COMPLETE METABOLIC SET (06/13/2019 9:22 AM PST) + +---------+ + + + | Component | Value | Ref Range | Performed | Pathologist | | | | | At | Signature | + +---------+ + + + | GLUCOSE, | 104 (H) | 70 - 99 mg/dL | [facility] | | | PLASMA | | | LABORATORY | | | (LAB) | | | SERVICES, | | | | | | [facility] | | [facility] + | | | | | | HEALING | | + +---------+ + + + | BUN, PLASMA | 12 | 6 - 20 mg/dL | [facility] | | | (LAB) | | | LABORATORY | | | | | | SERVICES, | | | | | | [facility] | | [facility] + | | | | | | HEALING | | + +---------+ + + + | CREATININE | 0.89 | 0.60 - 1.10 | [facility] | [...] | | | LABORATORY | | | BERMUDIAN | | | SERVICES, | | | [...] +---------+ + + + | SODIUM, | 134 (L) | 136 - 145 | [facility] | | | PLASMA | | mmol/L | LABORATORY | | | (LAB) | | | SERVICES, | | | | | | [facility] | | | [facility] + | | | | | | HEALING | | + +---------+ + + + | POTASSIUM, | 2.7 (L) | 3.4 - 5.0 | [facility] | | | PLASMA | | mmol/L | LABORATORY | | | (LAB) | | | SERVICES, | | | | | | [facility] | | [facility] + | | | | | | HEALING | | + +---------+ + + + | CHLORIDE, | 97 | 97 - 108 mmol/L | [facility] | | | PLASMA | | | LABORATORY | | | (LAB) | | | SERVICES, | | | | | | [facility] | | | | [facility] + | | | | | | HEALING | | + +---------+ + + + | TOTAL CO2, | 24 | 21 - 32 mmol/L | [facility] | | | PLASMA | | | LABORATORY | | | (LAB) | | | SERVICES, | | | | | | [facility] | | | [facility] + | | | | | | HEALING | | + +---------+ + + + | CALCIUM, | 8.8 | 8.6 - 10.2 | [facility] | | | PLASMA | | mg/dL | LABORATORY | | | (LAB) | | | SERVICES, | | | | | | [facility] | | | | [facility] + | | | | | | HEALING | | + +---------+ + + + | CALCIUM(ALB | 9.2 | 8.6 - 10.2 | [facility] | | | CORRECTED) | | mg/dL | LABORATORY | | | | | | SERVICES, | | | | | | [facility] | | | [facility] + | | | | | | HEALING | | + +---------+ + + + | BILIRUBIN | 0.8 | 0.3 - 1.2 mg/dL | [facility] | | | TOTAL | | | LABORATORY | | | | | | SERVICES, | | | | | | [facility] | | | | | | [facility] + | | | | | | HEALING | | + +---------+ + + + | TOTAL | 6.4 | 6.4 - 8.2 g/dL | [facility] [...] + + + | ALK PHOS | 78 | 42 - 98 U/L | [facility] | | | | | | LABORATORY | | | | | | SERVICES, | | | | | | [facility] | | | | | | [facility] + | | | | | | HEALING | | + +---------+ + + + | AST(SGOT) | 12 [...] + + + | ANION GAP | 13 (H) | 4 - 11 mmol/L | [facility] | | | | | | LABORATORY | | | | | | SERVICES, | | | | | | [facility] | | [facility] | | | [facility] + | | | | | | HEALING | | + +---------+ + + + | ANION | 14 (H) | 4 - 11 [...] MDRD equation recommended by the National | [facility] | | Kidney Disease Education Program. Estimated [...] | + + + + + | [facility] | [address] | [place] [address] | | | SERVICES, [facility] | | | | | HEALTH + HEALING | | | | + + + + + [facility] - LDH TOTAL, PLASMA (06/13/2019 9:22 AM PST) + +---------+ + + + | Component | Value | Ref Range | Performed | Pathologist | | | | | At | Signature | + +---------+ + + + | LD TOTAL, | 152 | <=250 U/L | [facility] | | [...] LABORATORY | [address] | [place] [address] | | | [facility] | | | | | HEALTH + HEALING | | | | + + + + + TACROLIMUS, WHOLE BLOOD (06/13/2019 9:22 AM PST) + +-------+ + + + | Component | Value | Ref Range | Performed | Pathologist | | | | | At | Signature | + +-------+ + + + | TACROLIMUS | 8.1 | 5.0 - 15.0 | [facility] | [...] | Test performed by immunoassay using [employer] Technician i2000. . | [facility] | | Samples [...] + + + + + | [facility] | [address] | [place] [address] | | | SERVICES, SPECIAL | [address] | | | | IMM + COAG | | | | + + + + + CMV PCR QUANTITATION, PLASMA (06/13/2019 9:22 AM PST) + + + + + [...] 2 fold may not reflect true | [facility] | | biological changes and must be [...] | | | characteristics determined by the [facility] | | | Molecular Diagnostic Center. It has not been cleared or approved by | | | the Food and Drug Administration. FDA approval is not required for | | | clinical use of this test, and therefore validation was done as | | | required under the requirements of the Clinical Laboratory Improvement | | | Act of 1988. The [facility] | | | Diagnostic Center is a fully licensed and/or accredited clinical | | | laboratory under CLIA, [facility], and the [facility]. | | + + + + + + + + | Performing | Address | City/State/Zipcode | Phone Number | | Organization | | | | + + + + + | [facility] | [address] | [place] [address] | | | DIAGNOSTIC | [address] | | | | LABORATORIES | | | | + + + + + HUMAN HERPES VIRUS 6 PCR (PLASMA OR CSF) (06/13/2019 9:22 AM PST) + + + + + [...] [facility] | | | | to the [facility] | | | | | | Test Directory for | | | | | | validated specimen | | | | | | source information: | | | | | | [email or web address] | | | | | | esting. [...] PTH - [facility] | | | | [place] [address] | | | | | | [phone] | | | | | | Zeferino [...] A: | | | | | | [employer]/[facility] | | | | + + + [...] [facility] | [address] | [place], [place] | | | UNIV [facility] | | [address] | | + + + + + VERITO-SEVILLA VIRUS PCR, PLASMA (06/13/2019 9:22 AM PST) + + + + + + | Component | Value | Ref Range | Performed | Pathologist | | | | | At | Signature | + + + + + + | EBV QUANT | Undetected | Undetected, | [facility] | | | BY PCR, | | [...] we have completed a quantitative polymerase | [facility] | | chain reaction (PCR) based study to quantitatively detect the presence | DIAGNOSTIC | | and amount of Verito-Sevilla virus (EBV) DNA. For this assay, | [...] | performance characteristics determined by the [facility] Molecular | | | Diagnostics Center. It has not been cleared or approved by the Food | | | and Drug Administration. FDA approval is not required for clinical | | | use of this test, and therefore validation was done as required under | | | the requirements of the Clinical Laboratory Improvement Act of 1988. | | | The [facility] is a fully licensed and/or accredited clinical laboratory | | | under CLIA, CAP, and the [facility]. References: 1) | | | Phong et [...] | Manjula SD, Barrera T, Bailee P, Edeing SK, Miguel A. Herpesvirus | | | prevalence and viral load in healthy blood donors by quantitative | | | real-time polymerase chain reaction. Transfusion 2008;48:3296-7066. | | | 4) Bassam BEARDEN, Genny CASAS, Félix I, van keshia Bij W, et al. | | | Frequent monitoring of Verito-Sevilla virus DNA load in unfractionated | | | whole blood is essential for early detection of posttransplant | | | lymphoproliferative disease in high-risk patients. Blood | | | 2001;97(5):9692-4268. | | + + + + + + + + | Performing | Address | City/State/Zipcode | Phone Number | | Organization | | | | + + + + + | [facility] | [address] | [place] [address] | | | DIAGNOSTIC | [address] | | | | LABORATORIES | | | | + + + + + documented in this encounter Visit Diagnoses + + | Diagnosis | + + | MDS (myelodysplastic syndrome) (HCC) - Primary Myelodysplastic syndrome, unspecified | + + | S/P cord blood transplantation Other specified organ or tissue replaced by transplant | + + documented in this encounter Administered Medications + +---------+ +------+------+------+ | Medication Order | MAR | Action | Dose | Rate | Site | | | Action | Date | | | | + +---------+ +------+------+------+ | magnesium sulfate in water IV | New Bag | 06/13/20 | 2 g | | | | (RTU) 2 g 2 g, intravenous, | | 19 9:36 | | | | | ONCE, 1 dose, 06/13/19 at | | AM PST | | | | | 0930 | | | | | | + +---------+ +------+------+------+ +---+---+ | | | +---+---+ + +---------+ +-----+---+---+ | magnesium sulfate in water IV | New Bag | 06/13/20 | 2 g | | | | (RTU) 2 g 2 g, intravenous, | | 19 10:35 | | | | | ONCE, 1 dose, Thu06/13/19 at | | AM PST | | | | | 1030 | | | | | | + +---------+ +-----+---+---+ +---+---+ | | | +---+---+ + +---------+ +-----+---+---+ | magnesium sulfate in water IV | New Bag | 06/13/20 | 4 g | | | | (RTU) 4 g 4 g, intravenous, | | 19 11:33 | | | | | ONCE, 1 dose, Thu06/13/19 at | | AM PST | | | | | 1030 | | | | | | + +---------+ +-----+---+---+ +---+---+ | | | +---+---+ + +---------+ +--------+---+---+ | potassium chloride in water IV | New Bag | 06/13/20 | 20 mEq | | | | (CENTRAL LINE) 20 mEq 20 mEq, | | 19 10:47 | | | | | intravenous, ONCE, 1 dose, Mon | | AM PST | | | | | 06/13/19 at 1045 | | | | | | + +---------+ +--------+---+---+ +---+---+ | | | +---+---+ + +-------+ +--------+---+---+ | potassium chloride SR | Given | 06/13/20 | 40 mEq | | | | (KLOR-CON) tablet 40 mEq 40 mEq, | | 19 11:21 | | | | | oral, ONCE, 1 dose, 06/13/19 | | AM PST | | | | | at 1045 | | | | | | + +-------+ +--------+---+---+ +---+---+ | | | +---+---+ + +---------+ + +---+---+ | sodium chloride (NS) 0.9 % | New Bag | 06/13/20 | 1,000 mL | | | | bolus 1,000 mL 1,000 mL, | | 19 9:36 | | | | | intravenous, NEEDED, Starting | | AM PST | | | | | 06/13/19 at 0932, Until Mon | | | | | | | 06/13/19 at 2020, decreased po | | | | | | | intake, dizziness | | | | | | + +---------+ + +---+---+ +---+---+ | | | +---+---+ documented in this encounter"
--- OUTSIDE RECORDS SUMMARY | ~2020-03-12 | XMS | Encounter Summary ---
Demographics + + + | Address | [address] | | | [place] [address] | + + + | Home Phone [...] + + + | Author | [facility] | + + + | Organization | [facility] | + + + | Address | Unknown | + + + | Phone | Unavailable | + + + Support + + +---------+ + | Name | Relationship | Address | Phone | + + +---------+ + | Claudia Cota | ECON | Unknown | | + + +---------+ + Care Team Providers + +------+ + | Care Platinumsmith Name | Role | Phone | + +------+ + | Meredith Sanchez | PCP | | + +------+ + Reason for Visit + +--------+ + | Reason | Onset | Comments | | | Date | | + +--------+ + | Medication | 11/02/ | [facility] [place] | | Adjustment | 2020 | | + +--------+ + Encounter Details +--------+ + + + + | Date | Type | Department | Care Team | Description | +--------+ + + + + | 11/02/ | Telephone | [facility] | Sejal De La Torre | Medication | | 2020 | | Clinics at S | N, DO [address] | Adjustment (IST | | | | [facility] [address] | [place]) | | | | [facility] | [place], [place] | | | | | Health and Healing, | [address] | | | | | Building [address] | [phone] | | | | | [place], [place] | | | | | | [address] | | | | | | [phone] | | | +--------+ + + + [...] Telephone Encounter - Tayo Osborne MA - 11/03/2019 1:58 PM PDTFormatting of this no te might be different from the original. Result Follow-up CSA level: Lab Results Component Value Date FK506 11.4 11/03/2019 Nona will be contacted to change dose from 0.5 mg once daily on and twice karin ly on 0.5 mg to 0.5 mg once daily per Cathy GONZÁLES starting on 11/03/19 (date) . Nona and/or her caregiver have been contacted and were able to provide verbal read back o f these instructions. elephone Encounte r Chapito Alcocer RN - 11/03/2019 8:36 AM PDTInitial Assessment Nona Hopper's call or contact centre operator for today is Patient, Nona, and her contact phone num wendy for today 11/02 is: [phone]. Nona has been advised of when to expect a confirmation call regarding any necessary dose adjustments: yes. Nona was asked to contact this clinic if she has not received a confirma tion call within 24 hours. Nona reports she currently takes Tacrolimus 0.5 mg Daily, and MWF 0.5 mg BID This is the correct dose according to her most recent dose adjustment. Nona took her last dose at 11/02/19 (date) on 2100 (time). Chapito Giraldo RN documented in this e ncounter Plan of Treatment Not on filedocumented as of this encounter Visit Diagnoses Not on filedocumented in this encounter"
--- OUTSIDE RECORDS SUMMARY | ~2020-03-12 | XMS | Encounter Summary ---
Demographics + + + | Address | [address] | | | [place] [address] | + + + | Home Phone | | + + + | Preferred Language | Unknown | + + + | Marital Status | Single | + + + | Temple Affiliation | NRP | + + + [...] Team Providers + +------+ + | Care Licensing Representative Name | Role | Phone | + +------+ + | Meredith Sanchez | PCP | | + +------+ + Encounter Details +--------+ + + + + | Date | Type | Department | Care Team | Description | +--------+ + + + + | 05/27/ | Manufacturing Assistant | [facility] | Sam Baron FNP | 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 | | Clinics at S | [address]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) | | | | [place] [address] | Jason Lujan [place], | (Primary Dx); Hx of | | | | [facility] for | [place] [address] | allogeneic stem cell | | | | Health and Healing, | [phone] | transplant (HCC) | | | | Building [address] | | | | | | [place], [place] | | | | | | [address] | | | | | | [phone] | | | +--------+ + + + [...] on filedocumented as of this encounter Results GERI, WHOLE BLOOD (05/29/2019 10:45 AM PST) + +-------+ + + + | Component | Value | Ref Range | Performed | Pathologist | | | | | At | Signature | + +-------+ + + + | TACROLIMUS | 6.9 | 5.0 - 15.0 | [facility] | [...] + | Test performed by immunoassay using PowerDsine Perinatal Instructor i2000. . | [facility] | | Samples [...] | + + + + + | [facility] | [address] | [place] [address] | | | SERVICESSPECIAL | [address] | | | | IMM + COAG | | | | + + + + + [facility] - MAGNESIUM, PLASMA (05/29/2019 10:45 AM PST) + +---------+ + + + [...] LABORATORY | [address] | [place] [address] | | | [facility] | | | | | HEALTH + HEALING | | | | + + + + + [facility] - COMPLETE METABOLIC SET (05/29/2019 10:45 AM PST) + + + + + + | Component | Value | Ref Range | Performed | Pathologist | | | | | At | Signature | + + + + + + | GLUCOSE, | 110 (H) | 70 - 99 mg/dL | [facility] | | | PLASMA | | | LABORATORY | | | (LAB) | | | SERVICES, | | | | | | [place] [facility] | | | | | | HEALTH + | | | | | | HEALING | | + + + + + + | BUN, PLASMA | 23 (H) | 6 - 20 mg/dL | [facility] | | | (LAB) | | | LABORATORY | | | | | | SERVICES, | | | | | | [facility] | [facility] + | | | | | | HEALING | | + + + + + + | CREATININE | 1.40 (H) | 0.60 - 1.10 | [facility] | | | PLASMA | | mg/dL | LABORATORY | | | (LAB) | | | SERVICES, | | | | | | [facility] | | [facility] + | | | | | | HEALING | | + + + + + + | EGFR | 47 (L) | >60 mL/min | [facility] | | | - | | | LABORATORY | | | [facility] | | | SERVICES, | | | | | | [facility] | | [facility] + | | | | | | HEALING | | + + + + + + | EGFR NON | 39 (L) | >60 mL/min | [facility] | | | -RENAE | | | LABORATORY | | | RICAN | | | SERVICES, | | | | | | [facility] | | | [facility] + | | | | | | HEALING | | + + + + + + | SODIUM, | 132 (L) | 136 - 145 | [facility] | | | PLASMA | | mmol/L | LABORATORY | | | (LAB) | | | SERVICES, | | | | | | [facility] | | [facility] + | | | | | | HEALING | | + + + + + + | POTASSIUM, | 3.8 | 3.4 - 5.0 | [facility] | | | PLASMA | | mmol/L | LABORATORY | | | (LAB) | | | SERVICES, | | | | | | [facility] | | | [facility] + | | | | | | HEALING | | + + + + + + | CHLORIDE, | 97 [...] + + + + | CALCIUM, | 9.1 [...] + + + + | CALCIUM(ALB | 9.6 | 8.6 - 10.2 | [facility] | [...] + + + + | TOTAL | 6.6 | 6.4 - 8.2 g/dL | [facility] | | | PROTEIN, | | | LABORATORY | | | PLASMA | | | SERVICES, | | | (LAB) | | | [facility] | | | | | | [facility] + | | | | | | HEALING | | + + + + + + | ALBUMIN, | 3.4 (L) | 3.5 - 4.7 g/dL | [facility] | | | PLASMA | | | LABORATORY | | | (LAB) | | | SERVICES, | | | | | | [facility] | [facility] | | [facility] + | | | | | | HEALING | | + + + + + + | ALK PHOS | 114 (H) | 42 - 98 U/L | [facility] | | | | | | LABORATORY | | | | | | SERVICES, | | | | | | [facility] | | | [facility] + | | | | | | HEALING | | + + + + + + | AST(SGOT) | 14 | <=41 U/L | [facility] | | [...] + + + + | ANION | 11 [...] MDRD equation recommended by the National | [facility] | | Kidney Disease Education Program. Estimated [...] | + + + + + | [facility] | [address] | [place] [address] | | | [facility] | | | | | HEALTH + HEALING | | | | + + + + + documented in this encounter Visit Diagnoses + + | Diagnosis | + + | MDS (myelodysplastic syndrome) (HCC) - Primary Myelodysplastic syndrome, unspecified | + + | Hx of allogeneic stem cell transplant (HCC) | + + documented in this encounter"
--- OUTSIDE RECORDS SUMMARY | ~2020-03-12 | XMS | Encounter Summary ---
Demographics + + + | Address | [address] | | | [place] [address] | + + + | Home Phone [...] Team Providers + +------+ + | Care Poising Inspector Name | Role | Phone | + +------+ + | Meredith Sanchez | PCP | | + +------+ + Encounter Details +--------+--------+ + + + | Date | Type | Department | Care Team | Description | +--------+--------+ + + + | 06/28/ | Travel | | | | | [...]
--- OUTSIDE RECORDS SUMMARY | ~2020-03-12 | XMS | Encounter Summary ---
Demographics + + + | Address | [address] | | | [place] [address] | + + + | Home Phone [...] + + + | Author | [facility] | + + + | Organization | [facility] | + + + | Address | Unknown | + + + | Phone | Unavailable | + + + Support + + +---------+ + | Name | Relationship | Address | Phone | + + +---------+ + | Claudia Cota | ECON | Unknown | | + + +---------+ + Care Team Providers + +------+ + | Care Apartment Community Manager Name | Role | Phone | + +------+ + | Meredith Sanchez | PCP | | + +------+ + Encounter Details +--------+ + + + + | Date | Type | Department | Care Team | Description | +--------+ + + + + | 03/10/ | Hospital | Diagnostics at [facility] | Tech, Pfl Ped | | | 2019 | Encounter | [address] | [address] | | | | | Sandra | [facility] | | | | | [facility] | [place] [address] | | | | | [address] [place] [address] | | | | | | [place], [place] | | | | | | [address] | | | | | | [phone] | | | +--------+ + + + [...] | + +--------+ + + + | SPIROMETRY, PULM | Routin | 03/10/2019 | MDS | Results for this | | FUNCTION LAB | e | 11:32 AM | (myelodysplastic | procedure are in the | | | | PDT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) | results section. | | | | | Encounter for | | | | | | long-term current | | | | | | use of medication | | + +--------+ + + + documented in this encounter Results SPIROMETRY, PULM FUNCTION LAB (03/10/2019 11:32 AM PDT) + + + + + + | Component | Value | Ref Range | Performed | Pathologist | | | | | At | Signature | + + + + + + | PULMONARY | Site: [facility] and | | [facility] | | | INTERPRETAT | [facility], [address] | | SPECIAL | | | [address] | [facility] | | DIAGNOSTICS | | | | [address],[place], [place], | | - | | | | [address]HY: [id number] | | PULMONARY | | | | Name: ANALY HOPPER | | FUNCTION | | | | ANNVisit Date: | | | | | | 03/10/2019 Second ID: | | | | | | [id number]: | | | | | | Meredith Carran[age]Age: 53 | | | | | | : 1965 Sex: | | | | | | Female Race: | | | | | | CaucasianHeight: 159.00 | | | | | | Cms Weight: 66.00 | | | | | | Kgs BSA: 1.68Order | | | | | | IDs: [id number] | | | | | | Test(s): [...] + + + + + + | [id number]% | 1.21 | 2.51 L/sec | [facility] | | | PRE | | | SPECIAL | | | | | | DIAGNOSTICS | | | | | | - | | | | | | PULMONARY | | | | | | FUNCTION | | + + + + + + | [id number]% | 48 | % | [facility] | [...] [facility] SPECIAL | [address] | [place], [place] | | | DIAGNOSTICS - | [address] | [address] | | | PULMONARY FUNCTION | | | | + + + + + documented in this encounter Visit Diagnoses + + | Diagnosis | + + | MDS (myelodysplastic syndrome) (HCC) Myelodysplastic syndrome, unspecified | + + | Encounter for long-term current use of medication | + + documented in this encounter"
--- OUTSIDE RECORDS SUMMARY | ~2020-03-12 | XMS | Encounter Summary ---
Demographics + + + | Address | [address] | | | [place] [address] | + + + | Home Phone [...] + + + | Author | [facility] | + + + | Organization | [facility] | + + + | Address | Unknown | + + + | Phone | Unavailable | + + + Support + + +---------+ + | Name | Relationship | Address | Phone | + + +---------+ + | Claudia Cota | ECON | Unknown | | + + +---------+ + Care Team Providers + +------+ + | Care Beer Merchant Name | Role | Phone | + +------+ + | Meredith Sanchez | PCP | | + +------+ + Encounter Details +--------+------+ + + + | Date | Type | Department | Care Team | Description | +--------+------+ + + + | 02/22/ | Lab | Laboratory at [facility] | | S/P cord blood | | 2020 | | [address] | | transplantation; MDS | | | | [place] [facility] |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and Healing, |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) | | | | [address] | | | | | | [place], [place] | | | | | | [address] | | | | | | [phone] | | | +--------+------+ + + + Social History + + [...] | [facility] - MAGNESIUM, | Routin | 02/23/2020 | S/P cord blood | Results for this | | PLASMA | e | 10:23 AM | transplantation MDS | procedure are in the | | | | PDT | (myelodysplastic | results section. | | | |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) | | + +--------+ + + + | [facility] - PHOSPHORUS, | Routin | 02/23/2020 | S/P cord blood | Results for this | | PLASMA | e | 10:23 AM | transplantation MDS | procedure are in the | | | | PDT | (myelodysplastic | results section. | | | | | syndrome) ([facility]) | | + +--------+ + + + | [facility] - LDH TOTAL, | Routin | 02/23/2020 | S/P cord blood | Results for this | | PLASMA | e | 10:23 AM | transplantation MDS | procedure are in the | | | | PDT | (myelodysplastic | results section. | | | | | syndrome) ([facility]) | | + +--------+ + + + | CBC AND AUTO DIFF | Routin | 02/23/2020 | S/P cord blood | Results for this | | | e | 10:23 AM | transplantation MDS | procedure are in the | | | | PDT | (myelodysplastic | results section. | | | | | syndrome) ([facility]) | | + +--------+ + + + | [facility] - COMPLETE | Routin | 02/23/2020 | S/P cord blood | Results for this | | METABOLIC SET | e | 10:23 AM | transplantation MDS | procedure are in the | | | | PDT | (myelodysplastic | results section. | | | | | syndrome) ([facility]) | | + +--------+ + + + | [facility] CBC W | Routin | 02/23/2020 | S/P cord blood | Results for this | | DIFFERENTIAL | e | 10:23 AM | transplantation MDS | procedure are in the | | | | PDT | (myelodysplastic | results section. | | | | | syndrome) ([facility]) | | + +--------+ + + + | CMV PCR | Routin | 02/23/2020 | S/P cord blood | Results for this | | QUANTITATION, PLASMA | e | 10:23 AM | transplantation MDS | procedure are in the | | | | PDT | (myelodysplastic | results section. | | | | | syndrome) ([facility]) | | + +--------+ + + + | TACROLIMUS, WHOLE | Routin | 02/23/2020 | S/P cord blood | Results for this | | BLOOD | e | 10:23 AM | transplantation MDS | procedure are in the | | | | PDT | (myelodysplastic | results section. | | | |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) | | + +--------+ + + + documented in this encounter Results CBC AND AUTO DIFF (02/23/2020 10:23 AM PDT) + + + + + + | Component | Value | Ref Range | Performed | Pathologist | | | | | At | Signature | + + + + + + | WHITE CELL | 5.04 | 3.50 - 10.80 | [facility] | | | COUNT | | K/cu mm | LABORATORY | | | | | | SERVICES, | | | | | | [facility] | | [facility] + | | | | | | HEALING | | + + + + + + | RED CELL | 3.48 (L) | 4.00 - 5.20 | [facility] | | | COUNT | | M/cu mm | LABORATORY | | | | | | SERVICES, | | | | | | [facility] | | | [facility] + | | | | | | HEALING | | + + + + + + | HEMOGLOBIN | 9.8 (L) | 12.0 - 16.0 | [facility] | | | | | g/dL | LABORATORY | | | | | | SERVICES, | | | | | | [facility] | | [facility] + | | | | | | HEALING | | + + + + + + | HEMATOCRIT | 32.6 (L) | 36.0 - 46.0 % | [facility] | | | | | | LABORATORY | | | | | | SERVICES, | | | | | | [facility] | | [facility] + | | | | | | HEALING | | + + + + + + | MCV | 93.7 | 80.0 - 100.0 fL | [facility] | | | | | | LABORATORY | | | | | | SERVICES, | | | | | | [facility] | | | [facility] + | | | | | | HEALING | | + + + + + + | MCHC | 30.1 (L) | 32.0 - 36.0 | [facility] | | | | | g/dL | LABORATORY | | | | | | SERVICES, | | | | | | [facility] | | [facility] + | | | | | | HEALING | | + + + + + + | RDW SD | 53.8 (H) | 35.1 - 46.3 fL | [facility] | | | | | | LABORATORY | | | | | | SERVICES, | | | | | | [facility] | | [facility] + | | | | | | HEALING | | + + + + + + | PLATELET | 115 (L)Comment: | 150 - 400 K/cu | [facility] | | | COUNT | Macroplatelets present. | mm | LABORATORY | | | | | | SERVICES, | | | | | | [facility] | | [facility] + | | | | | | HEALING | | + + + + + + | MPV | 13.5 (H) | 9.7 - 12.3 fL | [facility] [...] + + + + | NEUTROPHIL | 61.7 | 50.0 - 70.0 % | [facility] | | | % | | | LABORATORY | | | | | | SERVICES, | | | | | | [facility] | | | | | | [facility] + | | | | | | HEALING | | + + + + + + | LYMPHOCYTE | 19.8 | 18.0 - 42.0 % | [facility] | | | % | | | LABORATORY | | | | | | SERVICES, | | | | | | [facility] | | | | | | [facility] + | | | | | | HEALING | | + + + + + + | MONOCYTE % | 13.9 (H) | 3.5 - 9.0 % | [facility] | | | | | | LABORATORY | | | | | | SERVICES, | | | | | | [facility] | | | | | | [facility] + | | | | | | HEALING | | + + + + + + | EOS % | 1.8 | 1.0 - 3.0 % | [facility] [...] + + + + | IG% | 2.4 (H) | 0.0 - 1.0 % | [facility] | | | | | | LABORATORY | | | | | | SERVICES, | | | | | | [facility] | | | | | | [facility] + | | | | | | HEALING | | + + + + + + | NEUTROPHIL | 3.11 | 1.80 - 7.70 | [facility] | | | # | | K/cu mm | LABORATORY | | | | | | SERVICES, | | | | | | [facility] | | | | | | [facility] + | | | | | | HEALING | | + + + + + + | NEUTROPHIL | 3.11Comment: Preliminary | 1.80 - 7.70 | [facility] [...] + + + + | LYMPHOCYTE | 1.00 | 1.00 - 4.80 | [facility] | | | # | | K/cu mm | LABORATORY | | | | | | SERVICES, | | | | | | [facility] | | | | | | [facility] + | | | | | | HEALING | | + + + + + + | MONOCYTE # | 0.70 | 0.10 - 0.90 | [facility] | | | | | K/cu mm | LABORATORY | | | | | | SERVICES, | | | | | | [facility] | | | | | | [facility] + | | | | | | HEALING | | + + + + + + | EOS # | 0.09 | 0.00 - 0.50 | [facility] | | | | | K/cu mm | LABORATORY | | | | | | SERVICES, | | | | | | [facility] | | | | | | [facility] + | | | | | | HEALING | | + + + + + + | BASO # | 0.02 | 0.00 - 0.10 | [facility] | | | | | K/cu mm | LABORATORY | | | | | | SERVICES, | | | | | | [facility] | | | | | [facility] + | | | | | | HEALING | | + + + + + + | IG# | 0.12 (H) | 0.00 - 0.10 | [facility] | [...] LABORATORY | [address] | [place] [address] | | | [facility] | | | | | HEALTH + HEALING | | | | + + + + + TACROLIMUS, WHOLE BLOOD (02/23/2020 10:23 AM PDT) + +-------+ + + + | Component | Value | Ref Range | Performed | Pathologist | | | | | At | Signature | + +-------+ + + + | TACROLIMUS | 7.2 | 5.0 - 15.0 | [facility] | [...] | + + + | Test performed at [facility]. Test performed by immunoassay | [facility] | | using [employer] i2000. . Samples for analysis of | LABORATORY | | Tacrolimus should be collected 30 minutes to 1 hour prior to the next | SERVICES, | | dose so that the measured concentration of drug represents trough | SPECIAL IMM + | | levels. Some other factors influencing therapeutic range, dose | [facility] | | administered, and result interpretation include time since | | | transplantation, the organ transplanted, co-administration of other | | | immunosuppressants and interaction with other drugs that may increase | | | or decrease Tacrolimus concentrations. | | + + + + + + + + | Performing | Address | City/State/Zipcode | Phone Number | | Organization | | | | + + + + + | [facility] | [address] | [place] [address] | | | SERVICES, SPECIAL | [address] | | | | IMM + COAG | | | | + + + + + CMV PCR QUANTITATION, PLASMA (02/23/2020 10:23 AM PDT) + + + + + [...] | | | characteristics determined by the [facility] [employer] [facility] | | | Molecular Diagnostic Center. It has not been cleared or approved by | | | the Food and Drug Administration. FDA approval is not required for | | | clinical use of this test, and therefore validation was done as | | | required under the requirements of the Clinical Laboratory Improvement | | | Act of 1988. The [facility] [employer] [facility] Molecular | | | Diagnostic Center is a fully licensed and/or accredited clinical | | | laboratory under CLIA, CAP, and the [facility]. | | + + + + + + + + | Performing | Address | City/State/[facility] Cent[facility]ode | Phone Number | | Organization | | | | + + + + + | [facility] | [address] | [place] [address] | | | DIAGNOSTIC | [address] | | | | LABORATORIES | | | | + + + + + [facility] - PHOSPHORUS, PLASMA (02/23/2020 10:23 AM PDT) + +-------+ + + + | Component | Value | Ref Range | Performed | Pathologist | | | | | At | Signature | + +-------+ + + + | PHOSPHORUS, | 3.6 | 2.4 - 4.7 mg/dL | [facility] [...] LABORATORY | [address] | [place] [address] | | | [facility] [place] [facility] | | | | | HEALTH + HEALING | | | | + + + + + CH - MAGNESIUM, PLASMA (02/23/2020 10:23 AM PDT) + +-------+ + + + | Component | Value | Ref Range | Performed | Pathologist | | | | | At | Signature | + +-------+ + + + | MAGNESIUM,P | 1.9 | 1.6 - 2.6 mg/dL | [facility] | | | LASMA | | | LABORATORY | | | | | | [facility] | | | | | | [place] [facility] | | | | | | [...] | + + + + + | [facility] | [address] | [place] [address] | | | SERVICES, [place] FOR | | | | | HEALTH + HEALING | | | | + + + + + [facility] - LDH TOTAL, PLASMA (02/23/2020 10:23 AM PDT) + +---------+ + + + | Component | Value | Ref Range | Performed | Pathologist | | | | | At | Signature | + +---------+ + + + | LD TOTAL, | 250 | <=250 U/L | [facility] | | [...] [facility] | [address] | [place] [address] | | | SERVICES, [facility] | | | | | HEALTH + HEALING | | | | + + + + + [facility] - COMPLETE METABOLIC SET (02/23/2020 10:23 AM PDT) + + + + + + | Component | Value | Ref Range | Performed | Pathologist | | | | | At | Signature | + + + + + + | GLUCOSE, | 96 | 70 - 99 mg/dL | [facility] [...] + + + + | CREATININE | 1.15 (H) | 0.60 - 1.10 | [facility] | | | PLASMA | | mg/dL | LABORATORY | | | (LAB) | | | SERVICES, | | | | | | [facility] | | | | | | [facility] + | | | | | | HEALING | | + + + + + + | EGFR | 59 (L) | >60 mL/min | [facility] | | | - | | | LABORATORY | | | [employer] [place] | | | SERVICES, | | | | | | [facility] | | | | | | HE[facility] + | | | | | | HEALING | | + + + + + + | EGFR NON | 49 (L) | >60 mL/min | [facility] | | | -RENAE | | | LABORATORY | | | [place] | | | SERVICES, | | | | | | [facility] | | | | | | [facility] + | | | | | | HEALING | | + + + + + + | SODIUM, | 141 | 136 - 145 | [facility] | | | PLASMA | | mmol/L | LABORATORY | | | (LAB) | | | SERVICES, | | | | | | [facility] | | | | | | [facility] + | | | | | | HEALING | | + + + + + + | POTASSIUM, | 4.0 | 3.4 - 5.0 | [facility] | | | PLASMA | | mmol/L | LABORATORY | | | (LAB) | | | SERVICES, | | | | | | [facility] | | | | | | [facility] + | | | | | | HEALING | | + + + + + + | CHLORIDE, | 105 | 97 - 108 mmol/L | [facility] | | | PLASMA | | | LABORATORY | | | (LAB) | | | SERVICES, | | | | | | [facility] | | | | | | HE[facility] + | | | | | | HEALING | | + + + + + + | TOTAL CO2, | 27 | 21 - 32 mmol/L | [facility] | | | PLASMA | | | LABORATORY | | | (LAB) | | | SERVICES, | | | | | | [facility] | | | | | | HE[facility] + | | | | | | HEALING | | + + + + + + | CALCIUM, | 8.5 (L) | 8.6 - 10.2 | [facility] | | | PLASMA | | mg/dL | LABORATORY | | | (LAB) | | | SERVICES, | | | | | | [facility] | | | | | | HEALTH + | | | | | | HEALING | | + + + + + + | CALCIUM(ALB | 9.0 | 8.6 - 10.2 | [facility] | [...] + + + + | TOTAL | 6.4 [...] + + + | ALK PHOS | 93 | 42 - 98 U/L | [facility] | | | | | | LABORATORY | | | | | | SERVICES, | | | | | | [facility] + | | | | | | [facility] | | + + + + + + | AST(SGOT) | 28 | <=41 U/L | [facility] | | | | | | LABORATORY | | | | | | SERVICES, | | | | | | [facility] + | | | | | | [facility] | | + + + + + + | ALT (SGPT) | 42 | <=60 U/L | [facility] | | | | | | LABORATORY | | | | | | SERVICES, | | | | | | [facility] + | | | | | | [facility] | | + + + + + + | ANION GAP | 9 | 4 - 11 mmol/L | [facility] | | | | | | LABORATORY | | | | | | SERVICES, | | | | | | [facility] + | | | | | | [facility] | | + + + + + + | ANION | 10 | 4 - 11 mmol/L [...] + + + + + + | BUN/CREATIN | 19 | 8 - 25 | [facility] | | | INE RATIO | | | LABORATORY | | | | | | SERVICES, | | | | | | [facility] + | | | | | | [facility] | | + + + + + + | GLOBULIN | 3.0 | 2.3 - 3.5 gm/dL | [facility] | | | LVL | | | LABORATORY | | | | | | SERVICES, | | | | | | [facility] + | | | | | | [facility] | | + + + + + + | ALBUMIN/BURTON | 1.1 | 0.7 - 2.8 | [facility] | | | BULIN RATIO | | | LABORATORY | | | | | | SERVICES, | | | | | | [facility] | | | | | | [...] | + + + + + | [id number] | [address] | [place] [address] | | | SERVICES, [facility] | | | | | HEALTH [...]
--- OUTSIDE RECORDS SUMMARY | ~2020-03-12 | XMS | Encounter Summary ---
Demographics + + + | Address | [address] | | | [place] [address] | + + + | Home Phone | | + + + | Preferred Language | Unknown | + + + | Marital Status | Single | + + + | Jewish Affiliation | NRP | + + + [...] Team Providers + +------+ + | Care Laboratory Technician Name | Role | Phone | + +------+ + | Meredith Sanchez | PCP | | + +------+ + Reason for Visit Office Visit - E/M Services (Routine) + +--------+ + + + + | Status | Reason | Specialty | Diagnoses / | Referred By | Referred To | | | | | Procedures | Contact | Contact | + +--------+ + + + + | Authorized | | Hematology / | Diagnoses | [...] | | | | | (HCC) | [place] | | | | | Procedures | [id number] | [address] | | | | | [place] EST | Phone: | Phone: | | | | | PATIENT | [phone] | [phone] | | | | | LEVEL V | Fax: | Fax: | | | | | | [phone] | [phone] | + +--------+ + + + + Encounter Details +--------+---------+ + + + | Date | Type | Department | Care Team | Description | +--------+---------+ + + + | 08/04/ | Office | [facility] | Cathy Cornelius | 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 Call the BMT clini c ([phone]) or BMT person on-call ([phone]) for: Any temp > 100.4 Nausea/vomiting unresponsive to anti-nausea medications Significant diarrhea despite Imodium Inability to drink at least 2 liters of fluid daily You develop a rash Bleeding 2. We'll call you to adjust your Tacrolimus if necessary. 3. Stop prednisone after tomorrow 4. Stop Noxafil (posaconazole) today 5. Start dapsone 100mg once daily tomorrow 6. Increase magnesium to two tablets three times daily 7. OK to switch labs from Thursday to later in the week depending on Dr. Sequeira's offi ce. Our team will fax orders to his office at [place] 8. Follow up with Dr. De La Torre or myself on 08/31 Your recent bone marrow biopsy on 07/28 shows no evidence of disease. We are still awaiting the final genetics report. Your recent Chest CT on 07/21 shows resolving infection. No need to repeat this unless you h ave any new symptoms (fevers, cough, shortness of breath) documented in this encounter Progress Notes Cathy Cornelius NP - 08/04/2019 2:15 PM PST 08/04/19- Day +104 post transplant [facility] Physician: Sejal De La Torre DO Local oncologist: Dr. Sequeira Hematologic Malignancy: MDS Conditioning regimen: FluCyTBI Date of transplant: 04/22/2019 Donor: CBU 1: [id number]/02 match, CBU 2: [id number]/02 match Research study: Kyle "[id number]: A Multicenter, Randomized, Phase III Registration Tr ia of Transplantation of NiCord, Ex Vivo Expanded, UCB-derived, Stem and Progenitor Cells , vs. Unmanipulated UCB for Patients With Hematological Malignancies". She was randomized to SOC arm. ID: Nona Dwyer is a 53yo female with history [...] with concern for fungal infection. 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 --December 2018- developed fevers up to 104. Work up neg for infection, but noted to have CBC s howing dropping counts. --Jun. Moved to [place] ([facility]) -- 10/07/18 showed normal chemistries, Bilirubin 1.4, [...] for D4-D7. 01/14-01/26/2019 admitted for zoster to [facility]. Vidaza held. 02/17/2019- seen at [facility] by Dr. De La Torre, no healthy siblings so cord blood is only option -consented to kyle "[id number]: A Multicenter, Randomized, Phase III Registration Tri md of Transplantation of NiCord, Ex Vivo Expanded, UCB-derived, Stem and Progenitor Cells, vs. Unmanipulated UCB for Patients With Hematological Malignancies". She was randomized to SOC arm. --02/21-03/01 C3 aza.Tolerated well without complications. --04/15-05/18/2019 admitted to [facility] for planned flu/cy/tbi conditioned UCB on [place] study (SOC arm). 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 She was admitted 07/07- due to concern for lower GI GVHD. Scope was negative for GVHD. She was started on 1 mg/kg/d steroids. 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 An incidental finding of a RLL PNA was discovered on imaging. ID concerned for fungal process. Pt underwent a BAL 07/11, results from the procedure are negative to date. Interval History: Nona comes to clinic today for post-transplant follow up. She is accomp anied by her caregiver, Melly. She is feeling well overall. She is planning to go back home to [place]. She denies any new symptoms since our last visit. She denies any fevers or chills. N o signs of infection including cough and shortness of breath. Denies any GI upset including nausea or vomiting. Her appetite is good. Denies diarrhea or constipation. No skin rash or i tching. Line was removed on 08/02 without complication. Review of Systems: General: Denies fevers, chills, weight loss or sweats. ENT: Denies changes in vision or double vision. Denies hearing loss, nosebleeds, nasal pedro estion, difficulty swallowing, hoarseness or sore throat. Respiratory: Denies coughing up blood, excessive sputum, cough, chest discomfort or wheezin g. Cardiovascular: No chest pain, lightheadedness,shortness of breath. Gastrointestinal: Denies indigestion, vomiting, abdominal pain, nausea or vomiting. Musculoskeletal: No joint pain, swelling, stiffness, back pain, arthritis, muscle aches or muscle cramps. Skin: No rash Psychological: No abnormal anxiety, depression. Remainder of ROS is otherwise negative. Current Medication List Name Sig DAPSONE 100 MG TABLET Take 1 tablet by mouth once daily. Indications: pneumonia prevention ESCITALOPRAM 20 MG TABLET Take 1 tablet by mouth once daily. Indications: major depressive disorder FAMOTIDINE 20 MG TABLET Take 1 tablet by mouth once daily at bedtime. Indications: preventi on of inflammation of stomach MAGNESIUM OXIDE-MAGNESIUM AMINO ACID CHELATE 133 MG TABLET Take 2 tablets by mouth three ti mes daily. OMEPRAZOLE 40 MG CAPSULE,DELAYED RELEASE Take 1 capsule by mouth once daily. Administer 30 to 60 minutes before meals POTASSIUM CHLORIDE ER 10 MEQ TABLET,EXTENDED RELEASE(PART/CRYST) Take 3 tablets by mouth on ce daily. Indications: low amount of potassium in the blood ROPINIROLE 0.5 MG TABLET Take 1 tablet by mouth once daily in the evening. TACROLIMUS 0.5 MG CAPSULE Effective 08/04/19: HOLD three doses and then starting 08/06/19 continue to take 0.5 mg every morning and 0.5 mg every evening. Combine 0.5mg and 1mg capsul es to make your current dose. HOLD on days of clinic and bring with you to take AFTER your l abs are drawn. Indications: prevention of GVHD Indications: prevention of graft versus host TACROLIMUS 1 MG CAPSULE Effective 08/04/19: HOLD three doses and then starting 08/06/19 co ntinue to take 0.5 mg every morning and 0.5 mg every evening. Combine 0.5mg and 1mg capsules to make your current dose. HOLD on days of clinic and bring with you to take AFTER your lab s are drawn. Indications: prevention of GVHD Indications: prevention of graft versus host di sease TRIAMCINOLONE ACETONIDE 0.1 % TOPICAL OINTMENT Apply a thin film to the affected areas twi ce daily as needed . Indications: skin rash VALACYCLOVIR 500 MG TABLET Take 1 tablet by mouth two times daily. Vitals: BP Readings from Last 1 Encounters: 08/04/19 161/82 Pulse Readings from Last 1 Encounters: 08/04/19 79 Resp Readings from Last 1 Encounters: 08/01/19 16 Wt Readings from Last 1 Encounters: 08/04/19 57.2 kg (126 lb 1.6 oz) Temp Readings from Last 1 Encounters: 08/04/19 36.9 C (98.4 F) (Oral) There is no height or weight on file to calculate BMI. Physical Exam: General:This is a femalein no acute distress. HEENT:PERRL. Sclerae anicteric. Mucosa pink and moist. No ulcers or exudates Skin:No rash, baseline erythema to chest Chest:Clear to auscultation bilaterally. CV:RRR, no murmurs. [...] (or 3 results) - Refreshable Recent Labs 08/04/19 1318 WBC 4.56 HB 10.3* HCT 32.5* PLT 106* NEUTROPERC 74.6* LYMPHPERC 12.7* MONOPERC 9.2* BASOPERC 0.0 EOSPERC 2.0 Recent Labs 08/04/19 1318 WBC 4.56 HB 10.3* HCT 32.5* PLT 106* NEUTROPERC 74.6* LYMPHPERC 12.7* MONOPERC 9.2* BASOPERC 0.0 EOSPERC 2.0 Chemistries: Last 72 Hours (or 3 results): Recent Labs 07/25/19 1457 07/28/19 0807 08/01/19 1359 NA 137 139 135* K 5.3* 3.9 4.7 CL 103 103 101 BICARB 23 26 24 BUN 27* 21* 24* CR 0.77 0.72 0.79 GLU 130* 84 119* CA 8.6 8.8 8.5* AST 19 12 16 ALT 23 21 27 AP 99* 87 91 TBILI 0.3 0.4 0.4 TP 6.5 6.5 6.3* ALB 3.4* 3.3* 3.2* ANIONGAP 11 10 10 ANIONALBCOR 12* 11 12* Lab Results Component Value Date MG 1.5 08/01/2019 Bone marrow today pending CT chest 07/21/19 Since 07/08/2019, mild interval decrease in right lower lobe consolidation and surrounding g roundglass/tree-in-bud nodularity, consistent with resolving infection, likely bacterial giv en the short-term improvement. Interval decrease in right middle lobe and lingular groundglass and tree-in-bud nodularity, also likely related to aforementioned bacterial pneumonia. Stable 5 mm lingular nodule. Assessment/Plan: 1. Hematology: History of MDS s/p FluCyTBI double cord (Day 0=04/22/19) She is enrolled in Kyle "[id number]: A Multicenter, Randomized, Phase III Registration Trial [...] engraftment studies show 100% donor #2 (female) D+90. PB chimerism 07/21-100% cord 2 -BMBx 07/28 preliminary results show 20-30% cellularity with no increase in blasts. Normal karyotype. Genetrails pending. CBC reviewed and reveals stable anemia and thrombocytopenia. Differential reviewed and reve als lymphopenia and monocytosis, will continue to follow. 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 Biopsy negative. Grade 2 skin noted 019 BSA 30% and noted improvement in steroid cream. Nausea and low appetite with decreased P O intake likely related to upper GI GVHD. Diarrhea and abdominal cramping worsened on 07/07 an d was subsequently admitted for work-up. Her EGD/flex sig revealed colitis and unlikely GVHD , however pathology could not rule out low grade lower GI GVHD. Continue steroid taper as to lerated, see below. Last dose of prednisone on 08/05/19. -Prophylaxis with tacrolimus and MMF per [facility] protocol -Tacrolimus, current dose is 0.5mg BID. Stopped posaconazole today and will be the first step in her tacrolimus taper. -s/p MMF 1 gm PO TID D-3 to D+60 (stopped on 06/21/2019) -Continue triamcinolone cream as needed, no current areas of active rash Kyle Simpson phase 3 (IRB 78728) Acute GVHD Staging Complete on study visit [...] mL diarrhea/day 2 25-50% BSA 3.1-6 mg/dL 9613-2228 mL diarrhea/day 3 >50% BSA Generalized erythroderma [...] (describe):n Complete Values: BSA%:n Bullae (Y/N):n TBili: 0.3 24H Diarrhea Vol: 2 BMs Severe abd pain (Y/N): n Ileus (Y/N):n Assign Stage: 0 0 Biopsy not c/w GVHD, +colitis Biopsy not c/w GVHD Presumptive/ Confirmed Dx of aGVHD? (Y/N) y n n n Pulmonary: Pretransplant PFTs completed on03/10/19 showed FEV1 of76% predicted, FVC o f87% predicted and adjusted DLCO of77% predicted. Plan for PFTs at Day +100 (requested t josé luis, 07/14) ID: Recent admission for colitis and s/p Cirpo/Flagyl x7 days through 07/19/19. Continue pro phylactic antimicrobials with Valtrex (recent hx HSV, will continue through Day +365) and da psone (allergy to Sulfa). Of note, patient is toxo negative. -Per cord protocol: Check EBV and HHV6 weekly. No hx of viremia Possible pneumonia, seen during routine CXR on recent admission and now s/p BAL per ID/pulm recs. Workup negative to date -Repeat Chest CT 07/21/19 reviewed and shows improved consolidation -Broad range PCR from BAL on 07/11 negative FEN: Appetite good. Weight stable. Albumin remains low at 3.3, will continue to follow. Mary ctrolytes reveiwed and shows hypomagnesium, Mg=1.5 and slightly elevated non-fasting glucose at 133. -HypoMg 2/2 CNI: Magnesium 6 tablets daily -HypoK: Resolved and Now on KDur 30 mEq daily GI: Nausea resolved with steroids as above. Risk of gastritis: Continue Pepcid 20 mg BID Risk for VOD:no e/o this currently. Completed Ursodiol 500 mgPO BID through Day +90 ( 07/20/19) Pysch: #Insomnia related to RLS: continue Requip 0.5 mg qHS #Depression:Stable, continue home SSRI. -Lexapro 20 mg PO daily Plan 1. Call the BMT clinic ([phone]) or BMT person on-call ([phone]) for: Any temp > 100.4 Nausea/vomiting unresponsive to anti-nausea medications Significant diarrhea despite Imodium Inability to drink at least 2 liters of fluid daily You develop a rash Bleeding 2. We'll call you to adjust your Tacrolimus if necessary. 3. Stop prednisone after tomorrow 4. Stop Noxafil (posaconazole) today 5. Start dapsone 100mg once daily tomorrow 6. Increase magnesium to two tablets three times daily 7. OK to switch labs from Thursday to later in the week depending on Dr. Sequeira's offi ce. Our team will fax orders to his office at [place] 8. Follow up with Dr. De La Torre or myself on 08/31 Your recent bone marrow biopsy on 07/28 shows no evidence of disease. We are still awaiting the final genetics report. Your recent Chest CT on 07/21 shows resolving infection. 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
--- OUTSIDE RECORDS SUMMARY | ~2020-03-12 | XMS | Encounter Summary ---
Demographics + + + | Address | [address] | | | [place] [address] | + + + | Home Phone [...] Team Providers + +------+ + | Care Bench Worker Apprentice Name | Role | Phone | + +------+ + | Meredith Sanchez | PCP | | + +------+ + Encounter Details +--------+--------+ + + + | Date | Type | Department | Care Team | Description | +--------+--------+ + + + | 08/02/ | Travel | | | | | [...]
--- OUTSIDE RECORDS SUMMARY | ~2020-03-12 | XMS | Encounter Summary ---
Demographics + + + | Address | [address] | | | [place] [address] | + + + | Home Phone | | + + + | Preferred Language | Unknown | + + + | Marital Status | Single | + + + | Muslim Affiliation | NRP | + + + [...] Team Providers + +------+ + | Care Commercial Lines Account Executive Name | Role | Phone | + +------+ + | Meredith Sanchez | PCP | | + +------+ + Encounter Details +--------+--------+ + + + | Date | Type | Department | Care Team | Description | +--------+--------+ + + + | 04/15/ | Travel | | | | | [...]
--- OUTSIDE RECORDS SUMMARY | ~2020-03-12 | XMS | Encounter Summary ---
Demographics + + + | Address | [address] | | | [place] [address] | + + + | Home Phone [...] Author + + + | Author | [facility] | + + + | Organization | [facility] | + + + | Address | Unknown | + + + | Phone | Unavailable | + + + Support + + +---------+ + | Name | Relationship | Address | Phone | + + +---------+ + | Claudia Cota | ECON | Unknown | | + + +---------+ + Care Team Providers + +------+ + | Care Powder Line Repairer Name | Role | Phone | + +------+ + | Meredith Sanchez | PCP | | + +------+ + Encounter Details +--------+ + + + + | Date | Type | Department | Care Team | Description | +--------+ + + + + | 11/01/ | C Java Developer | [facility] | Sejal De La Torre | S/P cord blood | | 2020 | | [facility] at S | N, DO [address] | transplantation | | | | [facility] [address] | (Primary Dx) | | | | [facility] | [place], [place] | | | | | [facility] and Healing, | [address] | | | | | Building [address] | [phone] | | | | | [facility] [place] | | | | | | [address] | | | | | | [phone] | | | +--------+ + + + [...] on filedocumented as of this encounter Results LYMPHOCYTE ACTIVATION(LYMPH RECONSTITUTION/ACTIVATE),BLOOD (11/03/2019 7:36 AM PDT) + + + + + + | Component | Value | Ref Range | Performed | Pathologist | | | | | At | Signature | + + + + + + | T-CELLS(CD3 | 52.210 | 49.0-85.0 % of | [facility] | | | +)% | | Lymphs % of | LABORATORY | | | | | Lymphs | SERVICES, | | | | | | SPECIAL IMM | | | | | | + COAG | | + + + + + + | T-CELLS(CD3 | 460 | [phone] | [facility] | | | +)# | | Cells/uL | LABORATORY | | | | | | SERVICES, | | | | | | SPECIAL IMM | | | | | | + COAG | | + + + + + + | HELPER | 48.555 | 26.0-61.0 % of | [facility] | | | T-CELLS(CD3 | | Lymphs % of | LABORATORY | | | +CD4+)% | | Lymphs | SERVICES, | | | | | | SPECIAL IMM | | | | | | + COAG | | + + + + + + | HELPER | 428 | [phone] | [facility] | | | T-CELLS(CD3 | | Cells/uL | LABORATORY | | | +CD4+)# | | | SERVICES, | | | | | | SPECIAL IMM | | | | | | + COAG | | + + + + + + | CYTOTOXIC | 3.310 | 10.0-31.0 % of | [facility] | | | T-CELLS(CD3 | | Lymphs % of | LABORATORY | | | +CD8+)% | | Lymphs | SERVICES, | | | | | | SPECIAL IMM | | | | | | + COAG | | + + + + + + | CYTOTOXIC | 29 (L) | 59 - 699 | [facility] | | | T-CELLS(CD3 | | Cells/uL | LABORATORY | | | +CD8+)# | | | SERVICES, | | | | | | SPECIAL IMM | | | | | | + COAG | | + + + + + + | CD4:CD8 | 14.669 (H) | 1.000 - 3.600 | [facility] | | | RATIO | | Ratio | LABORATORY | | | | | | SERVICES, | | | | | | SPECIAL IMM | | | | | | + COAG | | + + + + + + | T-REG(4+127 | 2.074 | <10.000 % of | [facility] | | | -[id number]+) | | Lymphs | LABORATORY | | | % | | | SERVICES, | | | | | | SPECIAL IMM | | | | | | + COAG | | + + + + + + | T-REG(4+127 | 18 | Cells/uL | [facility] | | | -[id number]+) | | | LABORATORY | | | # | | | SERVICES, | | | | | | SPECIAL IMM | | | | | | + COAG | | + + + + + + | DNT-CELLS(C | 0.136 | <6.000 % of | [facility] | [...] + + + + | TCRAB | 0.047 | <=1.500 % of | [facility] | [...] + + + | TCR AB | 99.700 (H) | 90.000 - 99.000 | [facility] | | | T(CD3+AB+)% | | % of T Cells | LABORATORY | | | OF T-CELLS | | | SERVICES, | | | | | | SPECIAL IMM | | | | | | + COAG | | + + + + + + | TCR AB | 459 | Cells/uL | [facility] | | | T(CD3+AB+)# | | | LABORATORY | | | | | | SERVICES, | | | | | | SPECIAL IMM | | | | | | + COAG | | + + + + + + | TCR GD | 0.180 | <10.000 % of T | [facility] | | | T(CD3+GD+)% | | Cells | LABORATORY | | | OF T-CELLS | | | SERVICES, | | | | | | SPECIAL IMM | | | | | | + COAG | | + + + + + + | TCR GD | 1 | Cells/uL | [facility] | | | T(CD3+GD+)# | | | LABORATORY | | | | | | SERVICES, | | | | | | SPECIAL IMM | | | | | | + COAG | | + + + + + + | NA VE | 18.130 | % of T Cells | [facility] | | | T(CD3+CD45R | | | LABORATORY | | | A+)% OF | | | SERVICES, | | | T-CELLS | | | SPECIAL IMM | | | | | | + COAG | | + + + + + + | NA VE | 83 | Cells/uL | [facility] | | | T(CD3+CD45R | | | LABORATORY | | | A+)# | | | SERVICES, | | | | | | SPECIAL IMM | | | | | | + COAG | | + + + + + + | MEMORY | 71.830 | % of T Cells | [facility] | | | T(CD3+CD45R | | | LABORATORY | | | O+)% OF | | | SERVICES, | | | T-CELLS | | | SPECIAL IMM | | | | | | + COAG | | + + + + + + | MEMORY | 331 | Cells/uL | [facility] | | | T(CD3+CD45R | | | LABORATORY | | | O+)# | | | SERVICES, | | | | | | SPECIAL IMM | | | | | | + COAG | | + + + + + + | T-CELL | 1.180 | <10.000 % of | [facility] | | | ACTIVATION( | | Lymphs | LABORATORY | | | CD3+CD69+)% | | | SERVICES, | | | | | | SPECIAL IMM | | | | | | + COAG | | + + + + + + | T-CELL | 10 | Cells/uL | [facility] | | | ACTIVATION( | | | LABORATORY | | | CD3+CD69+)# | | | SERVICES, | | | | | | SPECIAL IMM | | | | | | + COAG | | + + + + + + | T-CELL | 5.270 | <10.000 % of | [facility] | | | ACTIVATION( | | Lymphs | LABORATORY | | | CD3+HLA-DR+ | | | SERVICES, | | | )% | | | SPECIAL IMM | | | | | | + COAG | | + + + + + + | T-CELL | 46 | Cells/uL | [facility] | | | ACTIVATION( | | | LABORATORY | | | CD3+HLA-DR+ | | | SERVICES, | | | )# | | | SPECIAL IMM | | | | | | + COAG | | + + + + + + | PD1 | 10.280 | <50.000 % of | [facility] | | | T-CELL(CD3+ | | Lymphs | LABORATORY | | | PD1+)% | | | SERVICES, | | | | | | SPECIAL IMM | | | | | | + COAG | | + + + + + + | PD1 | 91 | Cells/uL | [facility] | | | T-CELL(CD3+ | | | LABORATORY | | | PD1+)# | | | SERVICES, | | | | | | SPECIAL IMM | | | | | | + COAG | | + + + + + + | PD1 HELPER | 15.390 | % of T Cells | [facility] | | | T OF | | | LABORATORY | | | T-CELLS % | | | SERVICES, | | | | | | SPECIAL IMM | | | | | | + COAG | | + + + + + + | PD1 HELPER | 71 | Cells/uL | [facility] | | | T # | | | LABORATORY | | | | | | SERVICES, | | | | | | SPECIAL IMM | | | | | | + COAG | | + + + + + + | PD1 | 2.570 | % of T Cells | [facility] | | | CYTOTOXIC T | | | LABORATORY | | | OF T-CELLS | | | SERVICES, | | | % | | | SPECIAL IMM | | | | | | + COAG | | + + + + + + | PD1 | 12 | Cells/uL | [facility] | | | CYTOTOXIC T | | | LABORATORY | | | # | | | SERVICES, | | | | | | SPECIAL IMM | | | | | | + COAG | | + + + + + + | T-NK(CD3+CD | 0.510 | <8.000 % of | [facility] | | | 56+)% | | Lymphs | LABORATORY | | | | | | SERVICES, | | | | | | SPECIAL IMM | | | | | | + COAG | | + + + + + + | T-NK(CD3+CD | 4 | Cells/uL | [facility] | | | 56+)# | | | LABORATORY | | | | | | SERVICES, | | | | | | SPECIAL IMM | | | | | | + COAG | | + + + + + + | TOTAL | 34.050 | 5.000-28.000 % | [facility] | | | NK-CELLS(CD | | of Lymphs % of | LABORATORY | | | 3-CD56+)% | | Lymphs | SERVICES, | | | | | | SPECIAL IMM | | | | | | + COAG | | + + + + + + | TOTAL | 300 | 71 - 499 | [facility] | | | NK-CELLS(CD | | Cells/uL | LABORATORY | | | 3-CD56+)# | | | SERVICES, | | | | | | SPECIAL IMM | | | | | | + COAG | | + + + + + + | B-CELLS(CD1 | 12.540 | 4.000-17.000 % | [facility] | | | 9+)% | | of Lymphs % of | LABORATORY | | | | | Lymphs | SERVICES, | | | | | | SPECIAL IMM | | | | | | + COAG | | + + + + + + | B-CELLS(CD1 | 111 | 32 - 341 | [facility] | | | 9+)# | | Cells/uL | LABORATORY | | | | | | SERVICES, | | | | | | SPECIAL IMM | | | | | | + COAG | | + + + + + + | IGD+27-NA | 66.110 | 50.000 - 80.000 | [facility] | | | VE B-CELLS | | % of B Cells | LABORATORY | | | OF B-CELL% | | | SERVICES, | | | | | | SPECIAL IMM | | | | | | + COAG | | + + + + + + | IGD+27+NON- | 0.970 (L) | 5.000 - 21.000 | [facility] | | | SWITCHED B | | % of B Cells | LABORATORY | | | OF B CELL% | | | SERVICES, | | | | | | SPECIAL IMM | | | | | | + COAG | | + + + + + + | IGD-27+SWIT | 16.480 | 5.000 - 24.000 | [facility] | | | CHED MEMORY | | % of B Cells | LABORATORY | | | B OF | | | SERVICES, | | | B-CELL% | | | SPECIAL IMM | | | | | | + COAG | | + + + + + + | B1 | 0.060 | <6.000 % of | [facility] | | | B-CELLS(CD5 | | Lymphs | LABORATORY | | | +CD19+)% | | | SERVICES, | | | | | | SPECIAL IMM | | | | | | + COAG | | + + + + + + | B1 | 1 | Cells/uL | [facility] | | | B-CELLS(CD5 | | | LABORATORY | | | +CD19+)# | | | SERVICES, | | | | | | SPECIAL IMM | | | | | | + COAG | | + + + + + + | KAPPA/LAMBD | 1.398 | <3.000 Ratio | [facility] | | | A RATIO | | | LABORATORY | | | | | | SERVICES, | | | | | | SPECIAL IMM | | | | | | + COAG | | + + + + + + | MYELOID | 71.510 | 50.0-70.0 % of | [facility] | | | CELLS(16+13 | | WBC % of WBC | LABORATORY | | | +)% | | | SERVICES, | | | | | | SPECIAL IMM | | | | | | + COAG | | + + + + + + | MYELOID | 3,583 | 1,800-7,700 | [facility] | | | CELLS(16+13 | | Cells/uL | LABORATORY | | | +)# | | | SERVICES, | | | | | | SPECIAL IMM | | | | | | + COAG | | + + + + + + | MONOCYTES(1 | 12.390 | 3.5-9.0 % of | [facility] | | | 4+13+)% | | WBC % of WBC | LABORATORY | | | | | | SERVICES, | | | | | | SPECIAL IMM | | | | | | + COAG | | + + + + + + | MONOCYTES(1 | 621 | 100 - 900 | [facility] | | | 4+13+)# | | Cells/uL | LABORATORY | | | | | | SERVICES, | | | | | | SPECIAL IMM | | | | | | + COAG | | + + + + + + | MDCS % | 0.302 | <=2.000 % of | [facility] | | | | | WBC | LABORATORY | | | | | | SERVICES, | | | | | | SPECIAL IMM | | | | | | + COAG | | + + + + + + | MDCS # | 15 | 4-32 Cells/uL | [facility] | | | | | Cells/uL | LABORATORY | | | | | | SERVICES, | | | | | | SPECIAL IMM | | | | | | + COAG | | + + + + + + | PDCS % | 0.078 | <=2.000 % of | [facility] | | | | | WBC | LABORATORY | | | | | | SERVICES, | | | | | | SPECIAL IMM | | | | | | + COAG | | + + + + + + | PDCS # | 4 | 1-20 Cells u/L | [facility] | [...] Performed At | + + + | 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 day 0=04/22/19 | [facility] | | - Reduced total CD8 T cells - Reduced non-switched B cells, but | LABORATORY | | adequate switched memory B cells and adequate total B cells | SERVICES, | | Reviewed and electronically signed by Aldo Canchola MD 11/04/2019 2:13 | SPECIAL IMM + | | PM Immunophenotyping and enumeration of lymphocyte subpopulations | COAG | | are performed using following antibodies: CD3 CD4 | | | CD5 CD8 CD11c CD13 CD14 CD16 CD19 | | | CD25 CD27 CD56 CD45RA CD45RO CD45 CD69 | | | CD123 CD127 PD1(CD279) HLA-DR IgD TCR a/b TCR g/d [place] | | | Lambda (Analyte specific reagents are used in many laboratory | | | tests necessary for standard medical care. This test was developed and | | | its performance characteristics determined by [facility]. It | | | has not been cleared or approved by the US Food and Drug | | | Administration (FDA). FDA does not require this test to go through | | | premarket FDA review. This test is used for clinical purposes. It | | | should not be regarded as investigational or for research. The | | | laboratory is certified under the Clinical Laboratory Improvement | | | Amendments (CLIA) as qualified to perform high complexity clinical | | | laboratory testing. | | + + + + + + + + | Performing | Address | City/State/Zipcode | Phone Number | | Organization | | | | + + + + + | [employer] | [address] | [place] [address] | | | SERVICES, SPECIAL | PARK [...]
--- OUTSIDE RECORDS SUMMARY | ~2020-03-12 | XMS | Encounter Summary ---
Demographics + + + | Address | [address] | | | [place] [address] | + + + | Home Phone | | + + + | Preferred Language | Unknown | + + + | Marital Status | Single | + + + | Shinto Affiliation | NRP | + + + [...] Team Providers + +------+ + | Care Assembly Machine Set Up Mechanic Name | Role | Phone | + +------+ + | Meredith Sanchez | PCP | | + +------+ + Reason for Referral Diagnostic Testing (Urgent) +--------+--------+ + + + + | Status | Reason | Specialty | Diagnoses / | Referred By | Referred To | | | | | Procedures | Contact | Contact | +--------+--------+ + + + + | Closed | | Radiology | Diagnoses | Wil, | Rad Ct Scan | | | | | MDS | Sejal Meadows, | [facility] [address] | | | | | (myelodyspla | DO [address] | [address] | | | | | stic | [address] | Melly Lujan [facility] | | | | | syndrome) | Melly Lujan | [facility], | | | | | (HCC) Lung | [place], [place] | 10th Floor | | | | | infiltrate | [address] | [facility] [place] | | | | | on CT | Phone: | [phone] | | | | | Immunocompro | [phone] | Phone: | | | | | mised state | Fax: | [phone] | | | | | due to drug | [phone] | Fax: | | | | | therapy S/P | | [phone] | | | | | cord blood | | | | | | | transplantat | | | | | | | ion | | | | | | | Procedures | | | | | | | CT CHEST WO | | | | | | | CONTRAST VT | | | | | | | CT | | | | | | | SCAN,THORAX, | | | | | | | W/O CONTRAST | | | +--------+--------+ + + + + Reason for Visit Diagnostic Testing (Urgent) +--------+--------+ + + + + | Status | Reason | Specialty | Diagnoses / | Referred By | Referred To | | | | | Procedures | Contact | Contact | +--------+--------+ + + + + | Closed | | Radiology | Diagnoses | [place], | Rad Ct Scan | | | | | MDS | Sejal Meadows, | [facility] [address] | | | | | (myelodyspla | DO [address] | [address] | | | | | stic | [address] | Melly Lujan [facility] | | | | | syndrome) | [address] | Hospital, | | | | | (HCC) Lung | [place], [place] | 10th Floor | | | | | infiltrate | [address] | [place], [place] | | | | | on CT | Phone: | [phone] | | | | | Immunocompro | [phone] | Phone: | | | | | mised state | Fax: | [phone] | | | | | due to drug | [phone] | Fax: | | | | | therapy S/P | | [phone] | | | | | cord blood | | | | | | | transplantat | | | | | | | ion | | | | | | | Procedures | | | | | | | CT CHEST WO | | | | | | | CONTRAST VT | | | | | | | CT | | | | | | | SCAN,THORAX, | | | | | | | W/O CONTRAST | | | +--------+--------+ + + + + Encounter Details +--------+ + + + + | Date | Type | Department | Care Team | Description | +--------+ + + + + | 07/21/ | Hospital | Diagnostic Imaging | Sejal De La Torre | | | 2020 | Encounter | [facility] | N, DO [address] [facility] | | | | | [address] | [address] | | | | | Melly Lujan [facility] | [place], [place] | | | | | [address] | [address] | | | | | [place], [place] | [phone] | | | | | [address] | | | | | | [phone] | | | +--------+ + + + [...] tablet by | 60 | 11 | 11/20/20 | | | mg oral tablet | [...] | + +--------+ + + + | CT CHEST WO CONTRAST | Urgent | 07/21/2019 | MDS | Results for this | | | | 2:36 PM | (myelodysplastic | procedure are in the | | | | PST | syndrome) ([facility]) | results section. 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 ID concerned for fungal | RECOGNITION 2 | | process, status post bronchoalveolar lavage without diagnosis. | | | COMPARISON: Chest CT 07/08/2019 TECHNIQUE: Helical scanning was | | | obtained of the chest without intravenous contrast and reviewed in | | | soft tissue and lung algorithm. Coronal and sagittal images were also | | | generated. FINDINGS: Lungs/pleura: Moderate upper lobe | | | predominant emphysema is noted. The previously noted focal area of | | | irregular-shaped consolidation in the periphery of the right lower | | | lobe is mildly decreased compared to the prior exam measuring | | | approximately 2.2 x 1.1 cm (axial lung image 1:15), previously 2.0 x | | | 1.5 cm. The surrounding area of groundglass and tree-in-bud nodularity | | | adjacent to the area of consolidation has also decreased compared to | | | the prior exam. Previously noted groundglass opacities with | | | tree-in-bud nodularity in the right middle lobe and lingula have also | | | decreased. A 5 mm nodule in the lingula (axial lung image 129) is | | | unchanged. There is no new nodularity. There is no new focal | | | consolidation or pulmonary edema. The large central airways are | | | patent. There is no pleural effusion or pneumothorax. | | | Mediastinum: A left internal jugular Groshong catheter is present with | | | the tip terminating at the cavoatrial junction. A conventional | | | three-vessel aortic arch branch pattern is noted. The heart is not | | | enlarged and there is no pericardial effusion. No | | | pathologically-enlarged mediastinal, hilar, internal thoracic, or | | | axillary lymph nodes are noted. Other: The visualized thyroid | | | gland and surrounding soft tissues of the neck are unremarkable. The | | | left lobe of the liver extends all the way along the anterior aspect | | | of the spleen. Within the liver tip, there is a small hypoattenuating | | | focus, statistically likely representing a hepatic cyst, unchanged | | | compared to the prior exam. The visualized upper abdominal organs are | | | otherwise unremarkable. The bones are osteopenic. No acute osseus | | | abnormality is noted. IMPRESSION: Since 07/08/2019, mild | | | interval decrease in right lower lobe consolidation and surrounding | | | groundglass/tree-in-bud nodularity, consistent with resolving | | | infection, likely bacterial given the short-term improvement. | | | Interval decrease in right middle lobe and lingular groundglass and | | | tree-in-bud nodularity, also likely related to aforementioned | | | bacterial pneumonia. Stable 5 mm lingular nodule. I have | | | personally reviewed the images and, if necessary, edited the report. I | | | agree with the report as now presented. Final signature: Marcela Arriaza | Daphne Mcmillan MD 07/21/2019 4:26 PM Preliminary: Marcela Mcmillan MD | | | Dictation initiated: Marcela Mcmillan MD 07/21/2019 4:06 PM | | + + + + + | Procedure Note | + + | Service Account, [employer] - 07/21/2019 4:27 PM PST EXAM: CT CHEST WO | | CONTRAST HISTORY: History of MDS status post bone marrow transplant with incidentally | | noted RLL opacity on recent prior chest CT without pulmonary symptoms. ID concerned for | | fungal process, status post bronchoalveolar lavage without diagnosis. COMPARISON: Chest | | CT 07/08/2019 TECHNIQUE: Helical scanning was obtained of the chest without intravenous | | contrast and reviewed in soft tissue and lung algorithm. Coronal and sagittal images | | were also generated. FINDINGS: Lungs/pleura: Moderate upper lobe predominant emphysema | | is noted. The previously noted focal area of irregular-shaped consolidation in the | | periphery of the right lower lobe is mildly decreased compared to the prior exam | | measuring approximately 2.2 x 1.1 cm (axial lung image 1:15), previously 2.0 x 1.5 cm. | | The surrounding area of groundglass and tree-in-bud nodularity adjacent to the area of | | consolidation has also decreased compared to the prior exam. Previously noted | | groundglass opacities with tree-in-bud nodularity in the right middle lobe and lingula | | have also decreased. A 5 mm nodule in the lingula (axial lung image 129) is unchanged. | | There is no new nodularity. There is no new focal consolidation or pulmonary edema. The | | large central airways are patent. There is no pleural effusion or pneumothorax. | | Mediastinum: A left internal jugular Groshong catheter is present with the tip | | terminating at the cavoatrial junction. A conventional three-vessel aortic arch branch | | pattern is noted. The heart is not enlarged and there is no pericardial effusion. No | | pathologically-enlarged mediastinal, hilar, internal thoracic, or axillary lymph nodes | | are noted. Other: The visualized thyroid gland and surrounding soft tissues of the neck | | are unremarkable. The left lobe of the liver extends all the way along the anterior | | aspect of the spleen. Within the liver tip, there is a small hypoattenuating focus, | | statistically likely representing a hepatic cyst, unchanged compared to the prior exam. | | The visualized upper abdominal organs are otherwise unremarkable. The bones are | | osteopenic. No acute osseus abnormality is noted. IMPRESSION: Since 07/08/2019, mild | | interval decrease in right lower lobe consolidation and surrounding | | groundglass/tree-in-bud nodularity, consistent with resolving infection, likely | | bacterial given the short-term improvement. Interval decrease in right middle lobe and | | lingular groundglass and tree-in-bud nodularity, also likely related to aforementioned | | bacterial pneumonia. Stable 5 mm lingular nodule. I have personally reviewed the images | | and, if necessary, edited the report. I agree with the report as now presented. Final | | signature: Marcela Mcmillan MD 07/21/2019 4:26 PM Preliminary: Marcela Mcmillan MD | | Dictation initiated: Marcela Mcmillan MD 07/21/2019 4:06 PM | |Dictation initiated: Marcela Mcmillan MD 07/21/2019 4:06 PM | + + + +---------+ + + | Performing | [...] Myelodysplastic syndrome, unspecified | + + | Lung infiltrate on CT | + + | Immunocompromised state due to drug therapy | + + | S/P cord blood transplantation Other specified organ or tissue replaced by transplant | + + documented in this encounter"
--- OUTSIDE RECORDS SUMMARY | ~2020-03-12 | XMS | Encounter Summary ---
Demographics + + + | Address | [address] | | | [place] [address] | + + + | Home Phone | | + + + | Preferred Language | Unknown | + + + | Marital Status | Single | + + + | Islam Affiliation | NRP | + + + [...] Team Providers + +------+ + | Care Condenser Tester Name | Role | Phone | + +------+ + | Meredith Sanchez | PCP | | + +------+ + Reason for Visit + + + | Reason | Comments | + + + | Hydration | | + + + | Schedule labs | | + + + | Dressing change | | + + + | Electrolyte [...] | Hematology | Diagnoses | Wil, | m Faculty | | | | 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 | Sejal [place], | [facility] [address] | | | | | (myelodyspla | DO [address] | | | | | stic | Stephanie Valverde | [place] [facility] | | | | | syndrome) | [facility] | [facility] and | | | | | (HCC) | [place], [place] | Healing, | | | | | Procedures | [address] | [address] | | | | | [place] | Phone: | [place], [place] | | | | | OFFICE/OUTPT | [phone] | [address] | | | | | | Fax: | Phone: | | | | | VISIT,EST,LE | [phone] | [phone] | | | | | [place] | | Fax: | | | | | EST PATIENT | | [phone] | | | | | LEVEL V | | | +--------+--------+ + + + + Encounter Details +--------+ + + + + | Date | Type | Department | Care Team | Description | +--------+ + + + + | 05/27/ | Hospital | [facility] | | | | 2019 | Encounter | [facility] at [facility] | | | | | | [facility] [address] | | | | | | [facility] | | | | | | Health and Healing, | | | | | | [address] | | | | | | [place], [place] | | | | | | [address] | | | | | | [phone] | | | +--------+ + + + [...] + + + | Blood Pressure | 112/74 | 05/27/2019 9:00 AM | | | | | PST | | + + + + + | Pulse | 88 | 05/27/2019 9:00 AM | | | | | PST | | + + + + + | Temperature | 36.5 C (97.7 F) | 05/27/2019 9:00 AM | | | | | PST | | + + + + + | Respiratory Rate | 20 | 05/27/2019 9:00 AM | | | | | PST | | + + + + + | Oxygen Saturation | 98% | 05/27/2019 9:00 AM | | | | | PST | | + + + + + | Inhaled Oxygen | - | - | | | Concentration | | | | + + + + + | Weight | 61.6 kg (135 lb 12.8 | 05/27/2019 9:00 AM | | | | oz) | PST | | + + + + + | Height | - | - | | + + + + + | Body Mass Index | 24.33 | 04/15/2019 1:50 PM | | | [...] documented as of this encounter Progress Notes Sam Baron FNP - 05/27/2019 9:00 AM PST 05/27/2019 Patient's labs reviewed and significant for increase in SCr from 1.1 to 1.88. I talked to rony dorsey in infusion clinic today and reports yesterday was not a good day, did not feel good overall and had pain s/p bone marrow biopsy the day before. Her oral intake was decreased ye sterday, with dysguesia and water did not taste good. This has improved today and already d rinking more this morning. Requesting future BMBx's be with the drill method rather than ma nual method. -Instructed pt to hold today's AM dose and we will adjust tacrolimus dose after level retur ns today. Received 1L NS IV today in clinic and will have pt return to clinic tomorrow or Thursday for repeat chemistries and 1L NS IV. -Encourage her to push her oral fluid intake as tolerated with a goal of consistently drink ing at least 2L fluids per day. Chemistries: Last 72 Hours (or 3 results): Recent Labs 05/27/19 0918 NA 131* K 3.4 CL 95* BICARB 23 BUN 27* CR 1.88* CA 9.4 MG 1.5* PO4 3.7 AST 11 ALT 14 TBILI 0.6 AP 106* ALB 3.4* TP 6.7 ELIECER Guillen HEMATOLOGY/MEDICAL ONCOLOGY AT [facility] [address] [facility] Mailcode: [place] [address] Tisha Vargas RN - 05/27/2019 9:00 AM PST INFUSION NURSING NOTE Allergies: Nona is allergic to cefepime and sulfa (sulfonamide antibiotics). 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 Nursing Assessment: Fever/Chills/Infection: No SOB / Cough: No Dizziness/Lightheaded/Fatigue: Yes, fatigue. Signs/Symptoms Bleeding: No Neuropathy: No Mucositis: No Nausea/Vomiting: Yes. Nausea controlled with compazine. Appetite: Adequate. Diarrhea/Constipation: Yes - How often? One episode of diarrhea yesterday, resolved with im modium. PO Fluid Intake: Less than 2L, 1L of NS IV given. Rash/Skin sores/Edema: No Urinary Issues: No Pain: No Vascular Access: Groshong accessed per protocol. Good blood return noted. Appropriate waste discarded. Meghna portillo drawn and sent. Groshong pulse flushed with 20 mL NS. Dressing Change: Groshong intact to right anterior chest wall without erythema or induration. Dressing raegan esvin, skin intact without s/s exit site or tunnel infection. Using a Central Line Dressing C hange kit, site cleansed with Chloraprep. Skin prep applied prior to dressing application. Biopatch applied with Tegaderm dressing. Positive pressure valves changed to each port. All lumens pulse flushed with 20 mL NS. Patient tolerated procedure without difficulty. Per Orders: Infusion Plan: Labs drawn per infusion plan orders. -Magnesium Sulfate 2 gm in 50 mL NS infused over 1 hour per supportive care orders for a pr evious magnesium level of 1.3. -1L NS given IV over 1 hr for decreased po intake. For infusion details, see AUG. Supportive Plan: No orders. Chemo Plan: No orders. Patient was reminded to call clinic with temp > 100.4, chills, s/s of bleeding or uncontrol led N/V/D/C. Patient d/c d ambulatory with her caregiver. Tisha Anton RN documented in this encounter Miscellaneous Notes Addendum Note - Sabino Raygzoa PharmD - 05/27/2019 9:00 AM PST Encounter addended by: Sabino simmons PharmD on: 05/27/2019 12:43 PM Actions taken: Order list changed documented in this encounter Plan of Treatment Not on filedocumented as of this encounter Procedures + +--------+ + + + | Procedure Name | Priori | Date/Time | Associated Diagnosis | Comments | | | ty | | | | + +--------+ + + + | [facility] - MAGNESIUM, | Routin | 05/27/2019 | MDS | Results for this | | PLASMA | e | 9:18 AM | (myelodysplastic | procedure are in the | | | | PST | syndrome) ([facility]) S/P | results section. | | | | | cord blood | | | | | | transplantation | | + +--------+ + + + | [facility] - PHOSPHORUS, | Routin | 05/27/2019 | MDS | Results for this | | PLASMA | e | 9:18 AM | (myelodysplastic | procedure are in the | | | | PST | syndrome) ([facility]) S/P | results section. | | | | | cord blood | | | | | | transplantation | | + +--------+ + + + | [facility] - LDH TOTAL, | Routin | 05/27/2019 | MDS | Results for this | | PLASMA | e | 9:18 AM | (myelodysplastic | procedure are in the | | | | PST | syndrome) ([facility]) S/P | results section. | | | | | cord blood | | | | | | transplantation | | + +--------+ + + + | CBC AND AUTO DIFF | Routin | 05/27/2019 | MDS | Results for this | | | e | 9:18 AM | (myelodysplastic | procedure are in the | | | | PST | syndrome) ([facility]) S/P | results section. | | | | | cord blood | | | | | | transplantation | | + +--------+ + + + | [facility] - COMPLETE | Routin | 05/27/2019 | MDS | Results for this | | METABOLIC SET | e | 9:18 AM | (myelodysplastic | procedure are in the | | | | PST | syndrome) ([facility]) S/P | results section. | | | | | cord blood | | | | | | transplantation | | + +--------+ + + + | [facility] CBC W | Routin | 05/27/2019 | MDS | Results for this | | DIFFERENTIAL | e | 9:18 AM | (myelodysplastic | procedure are in the | | | | PST | syndrome) ([facility]) S/P | results section. | | | | | cord blood | | | | | | transplantation | | + +--------+ + + + | CMV PCR | Routin | 05/27/2019 | MDS | Results for this | | QUANTITATION, PLASMA | e | 9:18 AM | (myelodysplastic | procedure are in the | | | | PST | syndrome) ([facility]) S/P | results section. | | | | | cord blood | | | | | | transplantation | | + +--------+ + + + | TACROLIMUS, WHOLE | Routin | 05/27/2019 | MDS | Results for this | | BLOOD | e | 9:18 AM | (myelodysplastic | procedure are in the | | | | PST | syndrome) ([facility]) S/P | results section. | | | | | cord blood | | | | | | transplantation | | + +--------+ + + + | ANTIBODY SCREEN | Routin | 05/27/2019 | MDS | Results for this | | | e | 9:18 AM | (myelodysplastic | procedure are in the | | | | PST | syndrome) ([facility]) | results section. | + +--------+ + + + | TYPE AND SCREEN | Routin | 05/27/2019 | MDS | Results for this | | | e | 9:18 AM | (myelodysplastic | procedure are in the | | | | PST | syndrome) ([facility]) | results section. | + +--------+ + + + | ABO & RH TYPE | Routin | 05/27/2019 | MDS | Results for this | | | e | 9:18 AM | (myelodysplastic | procedure are in the | | | | PST | syndrome) ([facility]) | results section. | + +--------+ + + + documented in this encounter Results ANTIBODY SCREEN (05/27/2019 9:18 AM PST) + + + + + [...] [facility] | [address] | [place] [address] | | | SERVICES, | [address] | | | | TRANSFUSION MEDICINE | | | | + + + + + ABO & RH TYPE (05/27/2019 9:18 AM PST) + + + + + + | Component | Value | Ref Range | Performed | Pathologist | | | | | At | Signature | + + + + + + | ABO Group | O | | [facility] | | [...] | + + + + + | [facility] | [address] | [place] [address] | | | SERVICES, | [address] | | | | TRANSFUSION MEDICINE | | | | + + + + + CBC AND AUTO DIFF (05/27/2019 9:18 AM PST) + + + + + + | Component | Value | Ref Range | Performed | Pathologist | | | | | At | Signature | + + + + + + | WHITE CELL | 1.88 (L) | 3.50 - 10.80 | [facility] | | | COUNT | | K/cu mm | LABORATORY | | | | | | SERVICES, | | | | | | [facility] + | | | | | | [facility]AL[facility] | | + + + + + + | RED CELL | 3.12 (L) | 4.00 - 5.20 | [facility] | | | COUNT | | M/cu mm | LABORATORY | | | | | | SERVICES, | | | | | | [facility] + | | | | | | [facility]ALING | | + + + + + + | HEMOGLOBIN | 8.6 (L) | 12.0 - 16.0 | [facility] | | | | | g/dL | LABORATORY | | | | | | SERVICES, | | | | | | [facility] | [facility] + | | | | | | HEALING | | + + + + + + | HEMATOCRIT | 25.7 (L) | 36.0 - 46.0 % | [facility] | | | | | | LABORATORY | | | | | | SERVICES, | | | | | | [facility] | [facility] + | | | | | | HEALING | | + + + + + + | MCV | 82.4 | 80.0 - 100.0 fL | [facility] | | | | | | LABORATORY | | | | | | SERVICES, | | | | | | [facility] | [facility] + | | | | | | [facility]ALING | | + + + + + + | MCHC | 33.5 | 32.0 - 36.0 | [facility] | | | | | g/dL | LABORATORY | | | | | | SERVICES, | | | | | | [facility] | [facility] + | | | | | | HEALING | | + + + + + + | RDW SD | 42.4 | 35.1 - 46.3 fL | [facility] | | | | | | LABORATORY | | | | | | SERVICES, | | | | | | [facility] | [facility] + | | | | | | HEALING | | + + + + + + | PLATELET | 21 (L) | 150 - 400 K/cu | [facility] | | | COUNT | | mm | LABORATORY | | | | | | SERVICES, | | | | | | [facility] | [facility] + | | | | | | [facility]ALING | | + + + + + + | MPV | 14.0 (H) | 9.7 - 12.3 fL | [...] + + + + | NEUTROPHIL | 36.7 (L) | 50.0 - 70.0 % | [facility] | | | % | | | LABORATORY | | | | | | SERVICES, | | | | | | [facility] | | [facility] + | | | | | | HEALING | | + + + + + + | LYMPHOCYTE | 21.8 | 18.0 - 42.0 % | [facility] | | | % | | | LABORATORY | | | | | | SERVICES, | | | | | | [facility] | [facility] + | | | | | | HEALING | | + + + + + + | MONOCYTE % | 29.3 (H) | 3.5 - 9.0 % | [facility] | | | | | | LABORATORY | | | | | | SERVICES, | | | | | | [facility] | [facility] + | | | | | | HEALING | | + + + + + + | EOS % | 10.1 (H) | 1.0 - 3.0 % | [facility] | | | | | | LABORATORY | | | | | | SERVICES, | | | | | | [facility] | | [facility] + | | | | | | HEALING | | + + + + + + | BASO % | 0.5 | 0.0 - 2.0 % | [facility] | | | | | | LABORATORY | | | | | | SERVICES, | | | | | | [facility] | | [facility] + | | | | | | HEALING | | + + + + + + | IG% | 1.6 (H) | 0.0 - 1.0 % | [facility] | | | | | | LABORATORY | | | | | | SERVICES, | | | | | | [facility] | [facility] + | | | | | | HEALING | | + + + + + + | NEUTROPHIL | 0.69 (L) | 1.80 - 7.70 | [facility] | | | # | | K/cu mm | LABORATORY | | | | | | SERVICES, | | | | | | [facility] | [facility] + | | | | | | HEALING | | + + + + + + | NEUTROPHIL | 0.69 (L)Comment: | 1.80 - 7.70 | [facility] [...] + + + + | LYMPHOCYTE | 0.41 (L) | 1.00 - 4.80 | [facility] | | | # | | K/cu mm | LABORATORY | | | | | | SERVICES, | | | | | | [facility] | [facility] + | | | | | | HEALING | | + + + + + + | MONOCYTE # | 0.55 | 0.10 - 0.90 | [facility] | | | | | K/cu mm | LABORATORY | | | | | | SERVICES, | | | | | | [facility] | [facility] + | | | | | | HEALING | | + + + + + + | EOS # | 0.19 | 0.00 - 0.50 | [facility] | [...] + + + + | IG# | 0.03 | 0.00 - 0.10 | [facility] | [...] | + + + + + | [facility] [employer] | [address] | [place] [address] | | | SERVICES, [facility] | | | | | [facility] + HEALING | | | | + + + + + CMV PCR QUANTITATION, PLASMA (05/27/2019 9:18 AM PST) + + + + + [...] 2 fold may not reflect true | [facility] | | biological changes and must be [...] | | | characteristics determined by the [facility] | | | [facility]. It has not been cleared or approved by | | | the Food and Drug Administration. FDA approval is not required for | | | clinical use of this test, and therefore validation was done as | | | required under the requirements of the Clinical Laboratory Improvement | | | Act of 1988. The [facility] | | | [facility] Center is a fully licensed and/or accredited clinical | | | laboratory under CLIA, CAP, and the [facility]. | | + + + + + + + + | Performing | Address | City/State/[facility] | Phone Number | | Organization | | | | + + + + + | [facility] | [address] | [place] [address] | | | DIAGNOSTIC | [address] | | | | LABORATORIES | | | | + + + + + TACROLIMUS, WHOLE BLOOD (05/27/2019 9:18 AM PST) + +-------+ + + + | Component | Value | Ref Range | Performed | Pathologist | | | | | At | Signature | + +-------+ + + + | TACROLIMUS | 12.8 | 5.0 - 15.0 | [facility] | [...] | Test performed by immunoassay using [employer] High Speed Warper Tender i2000. . | [facility] | | Samples [...] + + + + + | [facility] | [address] | [place] [address] | | | SERVICES, SPECIAL | [address] | | | | IMM + COAG | | | | + + + + + [facility] - MAGNESIUM, PLASMA (05/27/2019 9:18 AM PST) + +---------+ + + + | Component | Value | Ref Range | Performed | Pathologist | | | | | At | Signature | + +---------+ + + + | MAGNESIUM,P | 1.5 (L) | 1.6 - 2.6 mg/dL | [facility] | | | [place] | | | LABORATORY | | | | | | [facility], | | | | | | [facility] | | | | | | [...] + + + + + | [facility] | [address] | [place] [address] | | | SERVICES, [facility] | | | | | HE[facility] + HEALING | | | | + + + + + [facility] - PHOSPHORUS, PLASMA (05/27/2019 9:18 AM PST) + +-------+ + + + | Component | Value | Ref Range | Performed | Pathologist | | | | | At | Signature | + +-------+ + + + | PHOSPHORUS, | 3.7 | 2.4 - 4.7 mg/dL | [facility] [...] | + + + + + | [facility] | [address] | [place] [address] | | | SERVICES, [facility] | | | | | HEALTH + HEALING | | | | + + + + + [facility] - COMPLETE METABOLIC SET (05/27/2019 9:18 AM PST) + + + + + + | Component | Value | Ref Range | Performed | Pathologist | | | | | At | Signature | + + + + + + | GLUCOSE, | 169 (H) | 70 - 99 mg/dL | [facility] | | | PLASMA | | | LABORATORY | | | (LAB) | | | SERVICES, | | | | | | [facility] | [facility] + | | | | | | HEALING | | + + + + + + | BUN, PLASMA | 27 (H) | 6 - 20 mg/dL | [facility] | | | (LAB) | | | LABORATORY | | | | | | SERVICES, | | | | | | [facility] | | [facility] + | | | | | | HEALING | | + + + + + + | CREATININE | 1.88 (H) | 0.60 - 1.10 | [facility] | | | PLASMA | | mg/dL | LABORATORY | | | (LAB) | | | SERVICES, | | | | | | [facility] | | | [facility] + | | | | | | HEALING | | + + + + + + | EGFR | 34 (L) | >60 mL/min | [facility] | | | - | | | LABORATORY | | | [place] | | | SERVICES, | | | | | | [facility] | [facility] + | | | | | | HEALING | | + + + + + + | EGFR NON | 28 (L) | >60 mL/min | [facility] | | | -[facility] | | | LABORATORY | | | [facility] | | | SERVICES, | | | | | | [facility] | | | [facility] + | | | | | | HEALING | | + + + + + + | SODIUM, | 131 (L) | 136 - 145 | [facility] | | | PLASMA | | mmol/L | LABORATORY | | | (LAB) | | | SERVICES, | | | | | | [facility] | | | [facility] + | | | | | | HEALING | | + + + + + + | POTASSIUM, | 3.4 [...] + + + + | CHLORIDE, | 95 (L) | 97 - 108 mmol/L | [facility] | | | PLASMA | | | LABORATORY | | | (LAB) | | | SERVICES, | | | | | | [facility] | | | | [facility] + | | | | | | HEALING | | + + + + + + | TOTAL CO2, | 23 | 21 - 32 mmol/L | [facility] | | | PLASMA | | | LABORATORY | | | (LAB) | | | SERVICES, | | | | | | [facility] | | [facility] | | [facility] + | | | | | | HEALING | | + + + + + + | CALCIUM, | 9.4 [...] + + + + | CALCIUM(ALB | 9.9 | 8.6 - 10.2 | [facility] | [...] + + + + | TOTAL | 6.7 | 6.4 - 8.2 g/dL | [facility] [...] + + + + | AST(SGOT) | 11 | <=41 U/L | [facility] | | [...] + + + + | ANION | 14 [...] MDRD equation recommended by the National | [facility] | | Kidney Disease Education Program. [...] + + + + + | [facility] | [address] | [place] [address] | | | [facility] FOR | | | | | HEALTH + HEALING | | | | + + + + + [facility] - LDH TOTAL, PLASMA (05/27/2019 9:18 AM PST) + +---------+ + + + | Component | Value | Ref Range | Performed | Pathologist | | | | | At | Signature | + +---------+ + + + | LD TOTAL, | 136 | <=250 U/L | [facility] | | [...] | + + + + + | [facility] | [address] | [place] [address] | | | [facility] | | | | | HEALTH [...] documented in this encounter Administered Medications + +--------+ +---------+------+---------+ | Medication Order | MAR | Action | Dose | Rate | Site | | | Action | Date | | | | + +--------+ +---------+------+---------+ | filgrastim-sndz (YULISSA) | Given | 05/27/20 | 300 mcg | | Abdomen | | injection 300 mcg 300 mcg, | | 19 11:58 | | | | | subcutaneous, ONCE, 1 dose, Fri | | AM PST | | | | | 05/27/19 at 0915 | | | | | | + +--------+ +---------+------+---------+ +---+---+ | | | +---+---+ + +---------+ +-----+---+---+ | magnesium sulfate in water IV | New Bag | 05/27/20 | 2 g | | | | (RTU) 2 g 2 g, intravenous, | | 19 9:37 | | | | | ONCE, 1 dose, [facility] 05/27/19 at | | AM PST | | | | | 0915 | | | | | | + +---------+ +-----+---+---+ +---+---+ | | | +---+---+ + +---------+ +-----+---+---+ | magnesium sulfate in water IV | New Bag | 05/27/20 | 2 g | | | | (RTU) 2 g 2 g, intravenous, | | 19 10:30 | | | | | ONCE, 1 dose, [facility] 05/27/19 at | | AM PST | | | | | 1030 | | | | | | + +---------+ +-----+---+---+ +---+---+ | | | +---+---+ + +---------+ + +---+---+ | sodium chloride 0.9 % (NS) IV | New Bag | 05/27/20 | 1,000 mL | | | | infusion 1,000 mL, intravenous, | | 19 9:37 | | | | | NEEDED, Starting Thu05/27/19 | | AM PST | | | | | at 0918, Until Thu05/27/19 at | | | | | | | 1808, decreased po intake, | | | | | | | dizziness | | | | | | + +---------+ + +---+---+ +---+---+ | | | +---+---+ documented in this encounter"
--- OUTSIDE RECORDS SUMMARY | ~2020-03-12 | XMS | Encounter Summary ---
Demographics + + + | Address | [address] | | | [place] [address] | + + + | Home Phone | | + + + | Preferred Language | Unknown | + + + | Marital Status | Single | + + + | Anabaptist Affiliation | NRP | + + + [...] + +------+ + | Care Director Of Land Name | Role | Phone | + +------+ + | Meredith Sanchez | PCP | | + +------+ + Reason for Visit + + + | Reason | Comments | + + + | Infusion | magnesium/fluids | + + + | Lab Draw [...] | | | | stic | [facility] | Center for | | | | | syndrome) | [facility] | Health and | | | | | (HCC) | [place], [place] | Healing, | | | | | Procedures | [address] | [address] | | | | | [place] | Phone: | [place], [place] | | | | | OFFICE/OUTPT | [phone] | [address] | | | | | | Fax: | Phone: | | | | | VISIT,EST,LE | [phone] | [phone] | | | | | VL IV NH | | Fax: | | | | | EST PATIENT | | [phone] | | | | | LEVEL V | | | +--------+--------+ + + + + Encounter Details +--------+ + + + + | Date | Type | Department | Care Team | Description | +--------+ + + + + | 05/31/ | Hospital | [facility] | | | | 2019 | Encounter | Clinics at S | | | | | | [facility] [address] | | | | | | [facility] | | | | | | Health and Healing, | | | | | | [address] | | | | | | [place], [place] | | | | | | [address] | | | | | | [phone] | | | +--------+ + + + [...] + + + | Blood Pressure | 112/62 | 05/31/2019 10:32 AM | | | | | PST | | + + + + + | Pulse | 79 | 05/31/2019 10:32 AM | | | | | PST | | + + + + + | Temperature | 36.4 C (97.6 F) | 05/31/2019 10:32 AM | | | | | PST | | + + + + + | Respiratory Rate | 17 | 05/31/2019 10:32 AM | | | | | PST | | + + + + + | Oxygen Saturation | 98% | 05/31/2019 10:32 AM | | | | | PST | | + + + + + | Inhaled Oxygen | - | - | | | Concentration | | | | + + + + + | Weight | 61.2 kg (135 lb) | 05/31/2019 10:32 AM | | | | | PST | | + + + + + | Height | - | - | | + + + + + | Body Mass Index | 24.19 | 04/15/2019 1:50 PM | | | [...] encounter Progress Notes Marj Reyes RN - 05/31/2019 10:20 AM PSTAssessment Patient arrives to clinic walking independently. Patient states she is feeling fine today, complaining of some bone pain and fatigue. 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 Patient has no new complaints. Fever/Chills/Infection: No SOB / Cough: No Fatigue/Dizziness/Lightheaded: Yes, fatigue states has not been sleeping well at night Signs/Symptoms Bleeding: No Neuropathy: No Mucositis: No Nausea/Vomiting: Yes, relieved with antiemetics Appetite: fair. Diarrhea/Constipation: No PO Fluid Intake: 1L/day- 1L 0.9NS administered. Urinary Issues: No Rash/Skin/Edema: No Pain: Yes, bone pain from Zarxio injection- educated patient to take Claritin. Lab Gro[facility] accessed per protocol. Good blood return noted. Appropriate waste discarded. Meghna portillo drawn and sent. Groshong pulse flushed with 20 mL NS. Patient discharged home. Dressing change due Thursday, 06/03. Immunosuppressant Patient reports holding their dose of tacrolimus today. They report taking 0.5 mg AM and 0. 5 mg PM. This matches the medication list. Confirmed with patient and caregiver that we have the correct contact number for their medication change calls. Education For education provided, see education tab. Supportive Care Magnesium Magnesium Sulfate 4 gm in 250 mL NS infused over 2 hours per supportive care orders for a m agnesium level of 1.4. For infusion details, see MAR. Potassium Potassium Chloride 40 mEq PO administered for a potassium level of 3.2. For infusion detail s, see MAR. Zarxio 300 mcg administered subcutaneously. Discharge Line care provided, see Flowsheet for details. Patient was instructed to check out at the [facility] desk prior to leaving the clinic. Patient d/c d ambulatory in stable condition. Next appointment scheduled 06/03/19 at 10:40 am. Marj Reyes RN documented in this enco unter Miscellaneous Notes Addendum Note - Marj Reyes RN - 05/31/2019 10:20 AM PST Encounter addended by: Marj peralta RN on: 05/31/2019 3:07 PM Actions taken: Clinical Note Signed 19 3:07 PM PSTdocumented in this encounter Plan of Treatment Not on filedocumented as of this encounter Procedures + +--------+ + + + | Procedure Name | Priori | Date/Time | Associated Diagnosis | Comments | | | ty | | | | + +--------+ + + + | ANTIBODY SCREEN | Routin | 05/31/2019 | MDS | Results for this | | | e | 10:31 AM | (myelodysplastic | procedure are in the | | | | PST | syndrome) ([facility]) | results section. | + +--------+ + + + | TYPE AND SCREEN | Routin | 05/31/2019 | MDS | Results for this | | | e | 10:31 AM | (myelodysplastic | procedure are in the | | | | PST | syndrome) ([facility]) | results section. | + +--------+ + + + | ABO & RH TYPE | Routin | 05/31/2019 | MDS | Results for this | | | e | 10:31 AM | (myelodysplastic | procedure are in the | | | | PST | syndrome) ([facility]) | results section. | + +--------+ + + + | [facility] - MAGNESIUM, | Routin | 05/31/2019 | MDS | Results for this | | PLASMA | e | 10:29 AM | (myelodysplastic | procedure are in the | | | | PST | syndrome) ([facility]) S/P | results section. | | | | | cord blood | | | | | | transplantation | | + +--------+ + + + | [facility] - PHOSPHORUS, | Routin | 05/31/2019 | MDS | Results for this | | PLASMA | e | 10:29 AM | (myelodysplastic | procedure are in the | | | | PST | syndrome) ([facility]) S/P | results section. | | | | | cord blood | | | | | | transplantation | | + +--------+ + + + | [facility] - LDH TOTAL, | Routin | 05/31/2019 | MDS | Results for this | | PLASMA | e | 10:29 AM | (myelodysplastic | procedure are in the | | | | PST | syndrome) ([facility]) S/P | results section. | | | | | cord blood | | | | | | transplantation | | + +--------+ + + + | CBC AND AUTO DIFF | Routin | 05/31/2019 | MDS | Results for this | | | e | 10:29 AM | (myelodysplastic | procedure are in the | | | | PST | syndrome) ([facility]) S/P | results section. | | | | | cord blood | | | | | | transplantation | | + +--------+ + + + | VERITO-LORENZO VIRUS | Routin | 05/31/2019 | MDS | Results for this | | PCR, PLASMA | e | 10:29 AM | (myelodysplastic | procedure are in the | | | | PST | syndrome) ([facility]) S/P | results section. | | | | | cord blood | | | | | | transplantation | | + +--------+ + + + | [facility] - COMPLETE | Routin | 05/31/2019 | MDS | Results for this | | METABOLIC SET | e | 10:29 AM | (myelodysplastic | procedure are in the | | | | PST | syndrome) ([facility]) S/P | results section. | | | | | cord blood | | | | | | transplantation | | + +--------+ + + + | [facility] CBC W | Routin | 05/31/2019 | MDS | Results for this | | DIFFERENTIAL | e | 10:29 AM | (myelodysplastic | procedure are in the | | | | PST | syndrome) ([facility]) S/P | results section. | | | | | cord blood | | | | | | transplantation | | + +--------+ + + + | CMV PCR | Routin | 05/31/2019 | MDS | Results for this | | QUANTITATION, PLASMA | e | 10:29 AM | (myelodysplastic | procedure are in the | | | | PST | syndrome) ([facility]) S/P | results section. | | | | | cord blood | | | | | | transplantation | | + +--------+ + + + | TACROLIMUS, WHOLE | Routin | 05/31/2019 | MDS | Results for this | | BLOOD | e | 10:29 AM | (myelodysplastic | procedure are in the | | | | PST | syndrome) ([facility]) S/P | results section. | | | | | cord blood | | | | | | transplantation | | + +--------+ + + + | HUMAN HERPES VIRUS 6 | Routin | 05/31/2019 | MDS | Results for this | | PCR (PLASMA OR CSF) | e | 10:29 AM | (myelodysplastic | procedure are in the | | | | PST | syndrome) ([facility]) S/P | results section. | | | | | cord blood | | | | | | transplantation | | + +--------+ + + + documented in this encounter Results ANTIBODY SCREEN (05/31/2019 10:31 AM PST) + + + + + [...] | + + + + + | [facility] | [address] | [place] [address] | | | SERVICES, | [address] | | | | TRANSFUSION MEDICINE | | | | + + + + + ABO & RH TYPE (05/31/2019 10:31 AM PST) + + + + + [...] | + + + + + | [facility] | [address] | [place] [address] | | | SERVICES, | [address] | | | | TRANSFUSION MEDICINE | | | | + + + + + CBC AND AUTO DIFF (05/31/2019 10:29 AM PST) + + + + + + | Component | Value | Ref Range | Performed | Pathologist | | | | | At | Signature | + + + + + + | WHITE CELL | 2.22 (L) | 3.50 - 10.80 | [facility] | | | COUNT | | K/cu mm | LABORATORY | | | | | | SERVICES, | | | | | | [facility] | [facility] | | [facility] + | | | | | | HEALING | | + + + + + + | RED CELL | 2.74 (L) | 4.00 - 5.20 | [facility] | | | COUNT | | M/cu mm | LABORATORY | | | | | | SERVICES, | | | | | | [facility] | | [facility] + | | | | | | HEALING | | + + + + + + | HEMOGLOBIN | 7.6 (L) | 12.0 - 16.0 | [facility] | | | | | g/dL | LABORATORY | | | | | | SERVICES, | | | | | | [facility] | [facility] | | | [facility] + | | | | | | HEALING | | + + + + + + | HEMATOCRIT | 22.5 (L) | 36.0 - 46.0 % | [facility] | | | | | | LABORATORY | | | | | | SERVICES, | | | | | | [facility] | | [facility] + | | | | | | HEALING | | + + + + + + | MCV | 82.1 | 80.0 - 100.0 fL | [facility] | | | | | | LABORATORY | | | | | | SERVICES, | | | | | | [facility] | | | | | | [facility] + | | | | | | HEALING | | + + + + + + | MCHC | 33.8 | 32.0 - 36.0 | [facility] | | | | | g/dL | LABORATORY | | | | | | SERVICES, | | | | | | [facility] | | | | | | [facility] + | | | | | | HEALING | | + + + + + + | RDW SD | 41.3 | 35.1 - 46.3 fL | [facility] | | | | | | LABORATORY | | | | | | SERVICES, | | | | | | [facility] | | | | | | [facility] + | | | | | | HEALING | | + + + + + + | PLATELET | 36 (L) | 150 - 400 K/cu | [facility] | | | COUNT | | mm | LABORATORY | | | | | | SERVICES, | | | | | | [facility] | | | | | | [facility] + | | | | | | HEALING | | + + + + + + | MPV | Comment: Not measured. | | [facility] | | | | [...] + + + + | NEUTROPHIL | 43.7 (L) | 50.0 - 70.0 % | [facility] | | | % | | | LABORATORY | | | | | | SERVICES, | | | | | | [facility] | | | | | | [facility] + | | | | | | HEALING | | + + + + + + | LYMPHOCYTE | 12.6 (L) | 18.0 - 42.0 % | [facility] | | | % | | | LABORATORY | | | | | | SERVICES, | | | | | | [facility] | | | | | | [facility] + | | | | | | HEALING | | + + + + + + | MONOCYTE % | 36.0 (H) | 3.5 - 9.0 % | [facility] | | | | | | LABORATORY | | | | | | SERVICES, | | | | | | [facility] | | | | [facility] + | | | | | | HEALING | | + + + + + + | EOS % | 5.4 (H) | 1.0 - 3.0 % | [...] + + + + | IG% | 1.8 (H) | 0.0 - 1.0 % | [facility] | | | | | | LABORATORY | | | | | | SERVICES, | | | | | | [facility] | | | | | | [facility] + | | | | | | HEALING | | + + + + + + | NEUTROPHIL | 0.97 (L) | 1.80 - 7.70 | [facility] | | | # | | K/cu mm | LABORATORY | | | | | | SERVICES, | | | | | | [facility] | | | | | | [facility] + | | | | | | HEALING | | + + + + + + | NEUTROPHIL | 0.97 (L)Comment: | 1.80 - 7.70 | [facility] [...] + + + + | LYMPHOCYTE | 0.28 (L) | 1.00 - 4.80 | [facility] | | | # | | K/cu mm | LABORATORY | | | | | | SERVICES, | | | | | | [facility] | | | | | | [facility] + | | | | | | HEALING | | + + + + + + | MONOCYTE # | 0.80 | 0.10 - 0.90 | [facility] | | | | | K/cu mm | LABORATORY | | | | | | SERVICES, | | | | | | [facility] | | | | | | [facility] + | | | | | | HEALING | | + + + + + + | EOS # | 0.12 | 0.00 - 0.50 | [facility] | [...] LABORATORY | [address] | [place] [address] | | | [facility] | | | | | HEALTH + HEALING | | | | + + + + + [facility] - MAGNESIUM, PLASMA (05/31/2019 10:29 AM PST) + +---------+ + + + | Component | Value | Ref Range | Performed | Pathologist | | | | | At | Signature | + +---------+ + + + | MAGNESIUM,P | 1.4 (L) | 1.6 - 2.6 mg/dL | [...] | + + + + + | [facility] | [address] | [place] [address] | | | SERVICES, [facility] | | | | | HEALTH + HEALING | | | | + + + + + [facility] - PHOSPHORUS, PLASMA (05/31/2019 10:29 AM PST) + +-------+ + + + [...] [facility] | [address] | [place] [address] | | | [facility] FOR | | | | | HEALTH + HEALING | | | | + + + + + [facility] - COMPLETE METABOLIC SET (05/31/2019 10:29 AM PST) + + + + + + | Component | Value | Ref Range | Performed | Pathologist | | | | | At | Signature | + + + + + + | GLUCOSE, | 125 (H) | 70 - 99 mg/dL | [facility] | | | PLASMA | | | LABORATORY | | | (LAB) | | | SERVICES, | | | | | | [facility] | | | | | | [facility] + | | | | | | HEALING | | + + + + + + | BUN, PLASMA | 19 | 6 - 20 mg/dL | [facility] | | | (LAB) | | | LABORATORY | | | | | | SERVICES, | | | | | | [facility] | | | | | | [facility] + | | | | | | HEALING | | + + + + + + | CREATININE | 1.24 (H) | 0.60 - 1.10 | [facility] | | | PLASMA | | mg/dL | LABORATORY | | | (LAB) | | | SERVICES, | | | | | | [facility] | | | | | | [facility] + | | | | | | HEALING | | + + + + + + | EGFR | 55 (L) | >60 mL/min | [facility] | | | - | | | LABORATORY | | | GUYANESE | | | SERVICES, | | | | | | [facility] | | | | | | [facility] + | | | | | | HEALING | | + + + + + + | EGFR NON | 45 (L) | >60 mL/min | [facility] | | | -RENAE | | | LABORATORY | | | RICAN | | | SERVICES, | | | | | | [facility] | | | | | | HE[facility] + | | | | | | HEALING | | + + + + + + | SODIUM, | 130 (L) | 136 - 145 | [facility] [...] + + + + | CHLORIDE, | 96 (L) | 97 - 108 mmol/L | [...] + + + + | ALBUMIN, | 3.5 [...] + + + + | AST(SGOT) | 15 | <=41 U/L | [facility] | | [...] SERVICES, | | | | | | [facility] | | | | | | HEALTH + | | | | | | HEALING | | + + + + + + | AST CMNT | No Hemo | | [facility] | | | | | | LABORATORY | | | | | | SERVICES, | | | | | | [facility] | | | | | | [...] MDRD equation recommended by the National | [facility] | | Kidney Disease Education [...] | + + + + + | [facility] | [address] | [place] [address] | | | SERVICES, [facility] | | | | | HEALTH + HEALING | | | | + + + + + [facility] - LDH TOTAL, PLASMA (05/31/2019 10:29 AM PST) + +---------+ + + + | Component | Value | Ref Range | Performed | Pathologist | | | | | At | Signature | + +---------+ + + + | LD TOTAL, | 158 | <=250 U/L | [facility] | | [...] | + + + + + | [facility] | [address] | [place] [address] | | | SERVICES, [facility] | | | | | HEALTH + HEALING | | | | + + + + + TACROLIMUS, WHOLE BLOOD (05/31/2019 10:29 AM PST) + +-------+ + + + | Component | Value | Ref Range | Performed | Pathologist | | | | | At | Signature | + +-------+ + + + | TACROLIMUS | 6.3 | 5.0 - 15.0 | [facility] | [...] | Test performed by immunoassay using [employer] Pattern [employer]ater i2000. . | [facility] | | Samples [...] | + + + + + | [facility] | [address] | [place] [address] | | | SERVICES, SPECIAL | [address] | | | | IMM + COAG | | | | + + + + + CMV PCR QUANTITATION, PLASMA (05/31/2019 10:29 AM PST) + + + + + [...] | | | characteristics determined by the [facility] | | | Molecular Diagnostic Center. It has not been cleared or approved by | | | the Food and Drug Administration. FDA approval is not required for | | | clinical use of this test, and therefore validation was done as | | | required under the requirements of the Clinical Laboratory Improvement | | | Act of 1988. The [facility] Molecular | | | Diagnostic Center is a fully licensed and/or accredited clinical | | | laboratory under CLIA, CAP, and the [facility]. | | + + + + + + + + | Performing | Address | City/State/Zipcode | Phone Number | | Organization | | | | + + + + + | [facility] | [address] | [place] [address] | | | DIAGNOSTIC | [address] | | | | LABORATORIES | | | | + + + + + VERITO-LORENZO VIRUS PCR, PLASMA (05/31/2019 10:29 AM PST) + + + + + + | Component | Value | Ref Range | Performed | Pathologist | | | | | At | Signature | + + + + + + | EBV QUANT | Undetected | Undetected, | [facility] | | | BY PCR, | | [...] we have completed a quantitative polymerase | [facility] | | chain reaction (PCR) based study [...] | | performance characteristics determined by the [facility] Molecular | | | Diagnostics Center. It has not been cleared or approved by the Food | | | and Drug Administration. FDA approval is not required for clinical | | | use of this test, and therefore validation was done as required under | | | the requirements of the Clinical Laboratory Improvement Act of 1988. | | | The [facility] is a fully licensed and/or accredited clinical laboratory | | | under CLIA, CAP, and the [facility]. References: 1) | | | Phong [...] | | real-time polymerase chain reaction. Transfusion 2008;48:5617-5747. | | | 4) Bassam BEARDEN, Genny CASAS, Félix I, van keshia Bisanaz W, et al. | | | Frequent monitoring of Verito-Lorenzo virus DNA load in unfractionated | | | whole blood is essential for early detection of posttransplant | | | lymphoproliferative disease in high-risk patients. Blood | | | 2001;97(5):1138-3973. | | + + + + + + + + | Performing | Address | City/State/Zipcode | Phone Number | | Organization | | | | + + + + + | [facility] | [address] | [place] [address] | | | DIAGNOSTIC | [address] | | | | LABORATORIES | | | | + + + + + HUMAN HERPES VIRUS 6 PCR (PLASMA OR CSF) (05/31/2019 10:29 AM PST) + + + + + [...] [facility] | | | | to the [facility] | | | | | | Test Directory for | | | | | | validated specimen | | | | | | source information: | | | | | | [email or web address] | | | | | | esting. [...] REG UNIV | | | QUANT | Laboratories,[facility] | | PTH - [facility] | | | | [place] [address] | | | | | | [phone]. | | | | | | Zeferino [...] A: | | | | | | [employer]/CS | | | | + + + [...] [facility] | [address] | [place], [place] | | | UNIV PTH - [facility] | | [address] | | + + + + + [...] | | + +--------+ +---------+------+---------+ | filgrastim-sndz (BETHANYO) | Given | 05/31/20 | 300 mcg | | Abdomen | | injection 300 mcg 300 mcg, | | 19 12:55 | | | | | subcutaneous, ONCE, 1 dose, Tue | | PM PST | | | | | 05/31/19 at 1230 | | | | | | + +--------+ +---------+------+---------+ +---+---+ | | | +---+---+ + +---------+ +-----+---+---+ | magnesium sulfate in water IV | New Bag | 05/31/20 | 2 g | | | | (RTU) 2 g 2 g, intravenous, | | 19 10:50 | | | | | ONCE, 1 dose, 05/31/19 at 1030 | | AM PST | | | | + +---------+ +-----+---+---+ +---+---+ | | | +---+---+ + +---------+ +-----+---+---+ | magnesium sulfate in water IV | New Bag | 05/31/20 | 2 g | | | | (RTU) 2 g 2 g, intravenous, | | 19 11:31 | | | | | ONCE, 1 dose, Thu05/31/19 at 1130 | | AM PST | | | | + +---------+ +-----+---+---+ +---+---+ | | | +---+---+ + +-------+ +--------+---+---+ | potassium chloride SR | Given | 05/31/20 | 40 mEq | | | | (KLOR-CON) tablet 40 mEq 40 mEq, | | 19 11:31 | | | | | oral, ONCE, 1 dose, Thu05/31/19 | | AM PST | | | | | at 1130 | | | | | | + +-------+ +--------+---+---+ +---+---+ | | | +---+---+ + +---------+ + +---+---+ | sodium chloride 0.9 % (NS) IV | New Bag | 05/31/20 | 1,000 mL | | | | infusion 1,000 mL, intravenous, | | 19 10:50 | | | | | NEEDED, Starting 05/31/19 | | AM PST | | | | | at 1028, Until 05/31/19 at | | | | | | | 1923, decreased po intake, | | | | | | | dizziness | | | | | | + +---------+ + +---+---+ +---+---+ | | | +---+---+ documented in this encounter"
--- OUTSIDE RECORDS SUMMARY | ~2020-03-12 | XMS | Encounter Summary ---
Demographics + + + | Address | [address] | | | [place] [address] | + + + | Home Phone [...] Team Providers + +------+ + | Care Acute Care Assistant Name | Role | Phone | + +------+ + | Meredith Sanchez | PCP | | + +------+ + Encounter Details +--------+ + + + + | Date | Type | Department | Care Team | Description | +--------+ + + + + | 03/03/ | Hospital | UNLRELATED BMT | | | | 2019 | Encounter | PROGRAM [id number] | | | | | | [address] | | | | | | [place], [place] | | | | | | [address] | | | +--------+ + + + [...]
--- OUTSIDE RECORDS SUMMARY | ~2020-03-12 | XMS | Encounter Summary ---
Demographics + + + | Address | [address] | | | [place] [address] | + + + | Home Phone | | + + + | Preferred Language | Unknown | + + + | Marital Status | Single | + + + | Taoist Affiliation | NRP | + + + [...] Team Providers + +------+ + | Care Malt House Supervisor Name | Role | Phone | + +------+ + | Meredith Sanchez | PCP | | + +------+ + Encounter Details +--------+--------+ + + + | Date | Type | Department | Care Team | Description | +--------+--------+ + + + | 08/04/ | Travel | | | | | [...]
--- OUTSIDE RECORDS SUMMARY | ~2020-03-12 | XMS | Encounter Summary ---
Demographics + + + | Address | [address] | | | [place] [address] | + + + | Home Phone | | + + + | Preferred Language | Unknown | + + + | Marital Status | Single | + + + | Hindu Affiliation | NRP | + + + [...] Team Providers + +------+ + | Care Mobile Sales Assistant Name | Role | Phone | [...] | | | | | (HCC) | [place] | | | | | Procedures | [address] | | | | | | [place] | Phone: | Phone: | | | | | OFFICE/OUTPT | [phone] | [phone] | | | | | | Fax: | Fax: | | | | | VISIT,CORTNEY RIDDLE | [phone] | | | | | | VL IV | | | +--------+--------+ + + + + Encounter Details +--------+---------+ + + + | Date | Type | Department | Care Team | Description | +--------+---------+ + + + | 07/28/ | Office | [facility] | Sejal De La Torre | S/P cord blood | | 2020 | Visit | Clinics at S | N, DO [address] | transplantation | | | | [facility] [address] | (Primary Dx) | | | | [facility] [place] [facility] | [place], [place] | | | | | Health and Healing, | [address] | | | | | Building [address] | [phone] | | | | | [place], [place] | | | | | | [address] | | | | | | [phone] | | | +--------+---------+ + + + [...] + + + | Blood Pressure | 154/84 | 07/28/2019 8:25 AM | | | | | PST | | + + + + + | Pulse | 82 | 07/28/2019 8:25 AM | | | | | PST | | + + + + + | Temperature | 36.9 C (98.5 F) | 07/28/2019 8:25 AM | | | | | PST | | + + + + + | Respiratory Rate | 20 | 07/28/2019 8:25 AM | | | | | PST | | + + + + + | Oxygen Saturation | 99% | 07/28/2019 8:25 AM | | | | | PST | | + + + + + | Inhaled Oxygen | - | - | | | Concentration | | | | + + + + + | Weight | 56.2 kg (123 lb 12.8 | 07/28/2019 8:25 AM | | | | oz) | PST | | + + + + + | Height | - | - | | + + + + + | Body Mass Index | 22.84 | 07/08/2019 4:32 PM | | | [...] Instructions Sejal De La Torre DO - 07/28/2019 8:45 AM PSTFormatting of this not e might be different from the original. For the prednisone: Do 2 tablets 5 mg or 10 mg daily for another 3 days. Starting on Mon y go to 5 mg daily until the pills run out. Your labs today look good. We are monitoring you closely for signs and symptoms of GVHD. Lab Results Component Value Date WBC 5.79 07/28/2019 HB 10.8 07/28/2019 HCT 34.4 07/28/2019 PLT 114 07/28/2019 MCV 97.7 07/28/2019 RDW 73.5 07/28/2019 Lab Results Component Value Date NA 139 07/28/2019 K 3.9 07/28/2019 CL 103 07/28/2019 BICARB 26 07/28/2019 BUN 21 07/28/2019 CR 0.72 07/28/2019 GLU 84 07/28/2019 CA 8.8 07/28/2019 AST 12 07/28/2019 ALT 21 07/28/2019 AP 87 07/28/2019 TBILI 0.4 07/28/2019 TP 6.5 07/28/2019 ALB 3.3 07/28/2019 ANIONGAP 10 07/28/2019 ANIONALBCOR 11 07/28/2019 Return to clinic next week. Expect a call from Dr. Sequeira office to set up an apt. documented in this encounter Progress Notes Sejal De La Torre DO - 07/28/2019 8:45 AM PST 07/28/19- Day +97 post transplant CHM Physician: Sejal De La Torre DO Local oncologist: Dr. Sequeira Hematologic Malignancy: MDS Conditioning regimen: FluCyTBI Date of transplant: 04/22/2019 Donor: CBU 1: [id number]/02 match, CBU 2: [id number]/02 match Research study: [facility] "[id number]: A Multicenter, Randomized, Phase III Registration Tr ial of Transplantation of NiCord, Ex Vivo Expanded, UCB-derived, Stem and Progenitor Cells , vs. Unmanipulated UCB for Patients With Hematological Malignancies". She was randomized to SOC arm. ID: Noan Dwyer is a 53yo female with history [...] s/p MA dCB transplant on 04/22/[address] [place] [address] (SOC arm). --December 2018- developed fevers up to 104. Work up neg for infection, but noted to have CBC s howing dropping counts. --Jun. Moved to [place] ([facility]) -- 10/07/18 showed normal chemistries, Bilirubin [...] for D4-D7. 01/14-01/26/2019 admitted for zoster to [facility]. Vidaza held. 02/17/2019- seen at [facility] by Dr. De La Torre, no healthy siblings so cord blood is only option -consented to [facility] "[id number]: A Multicenter, Randomized, Phase III Registration Tri wy of Transplantation of NiCord, Ex Vivo Expanded, UCB-derived, Stem and Progenitor Cells, vs. Unmanipulated UCB for Patients With Hematological Malignancies". She was randomized to SOC arm. --02/21-03/01 C3 aza.Tolerated well without complications. --04/15-05/18/2019 admitted to [facility] for planned flu/cy/tbi conditioned UCB [...] to clinic today for post-transplant follow up. D+97 today. S he is accompanied by her caregiver, Melly. Overall, she is feeling well. She is eating and dri nking well despite her weight not increasing. Reports no nausea or vomiting. Her strength c ontinues to improve. No rash. Currently on prednisone taper -currently taking 10 mg predniso ne daily. She has [facility] housing until 08/04/19 and is excited to go home and follow-up with Dr. Sequeira after that time. Review of Systems: General: Denies fevers, chills, weight loss or sweats. +weakness improved ENT: Denies changes in vision or double vision. Denies hearing loss, nosebleeds, nasal pedro estion, difficulty swallowing, hoarseness or sore throat. Respiratory: Denies coughing up blood, excessive sputum, cough, chest discomfort or wheezin g. Cardiovascular: No chest pain, lightheadedness,shortness of breath. Gastrointestinal: Denies indigestion, vomiting, no diarrhea No abdominal pain. No nausea or vomiting. [...] MG TABLET Take 2 tablets by mouth two time s daily. OMEPRAZOLE 40 MG CAPSULE,DELAYED RELEASE Take 1 capsule by mouth once daily. Administer 30 to 60 minutes before meals POSACONAZOLE 100 MG TABLET,DELAYED RELEASE Take 4 tablets by mouth once daily. Indications: prevention of fungal infection POTASSIUM CHLORIDE ER 10 MEQ TABLET,EXTENDED RELEASE(PART/CRYST) Take 3 tablets by mouth on ce daily. Indications: low amount of potassium in the blood PREDNISONE 5 MG TABLET Take 1 tablet by mouth once daily for 10 days. ROPINIROLE 0.5 MG TABLET Take 1 tablet by mouth once daily in the evening. TACROLIMUS 0.5 MG CAPSULE Effective 07/28/2019: Take 0.5 mg by mouth every morning and 0.5 mg every evening. Combine 0.5mg and 1mg capsules to make your current dose. HOLD on days of clinic and bring with you to take AFTER your labs are drawn. Indications: prevention of GVHD Indications: prevention of graft versus host TACROLIMUS 1 MG CAPSULE Effective 07/21/2019: Take 0.5 mg by mouth every morning and 0.5 mg every evening. Combine 0.5mg and 1mg capsules to make your current dose. HOLD on days of cl inic and bring with you to take AFTER your labs are drawn. Indications: prevention of GVHD I ndications: prevention of graft versus host disease TRIAMCINOLONE ACETONIDE 0.1 % TOPICAL OINTMENT Apply a thin film to the affected areas twi ce daily as needed . Indications: skin rash VALACYCLOVIR 500 MG TABLET Take 1 tablet by mouth two times daily. Vitals: BP Readings from Last 1 Encounters: 07/28/19 154/84 Pulse Readings from Last 1 Encounters: 07/28/19 82 Resp Readings from Last 1 Encounters: 07/28/19 20 Wt Readings from Last 1 Encounters: 07/28/19 56.2 kg (123 lb 12.8 oz) Temp Readings from Last 1 Encounters: 07/28/19 36.9 C (98.5 F) (Oral) Body mass index is 22.84 kg/m. Physical Exam: General:This is a femalein [...] (or 3 results) - Refreshable Recent Labs 07/25/19 1457 07/28/19 0807 WBC 8.63 5.79 HB 10.7* 10.8* HCT 34.7* 34.4* PLT 208 114* NEUTROPERC 76.5* 58.7 LYMPHPERC 11.6* 24.4 MONOPERC 8.1 10.7* BASOPERC 0.2 0.2 EOSPERC 0.8* 4.1* Recent Labs 07/25/19 1457 07/28/19 0807 WBC 8.63 5.79 HB 10.7* 10.8* HCT 34.7* 34.4* PLT 208 114* NEUTROPERC 76.5* 58.7 LYMPHPERC 11.6* 24.4 MONOPERC 8.1 10.7* BASOPERC 0.2 0.2 EOSPERC 0.8* 4.1* Chemistries: Last 72 Hours (or 3 results): Recent Labs 07/21/19 0759 07/25/19 1457 07/28/19 0807 NA 139 137 139 K 3.9 5.3* 3.9 CL 105 103 103 BICARB 26 23 26 BUN 18 27* 21* CR 0.78 0.77 0.72 GLU 123* 130* 84 CA 8.3* 8.6 8.8 AST 13 19 12 ALT 18 23 21 AP 84 99* 87 TBILI 0.3 0.3 0.4 TP 5.9* 6.5 6.5 ALB 3.1* 3.4* 3.3* ANIONGAP 8 11 10 ANIONALBCOR 10 12* 11 Lab Results Component Value Date MG 1.5 07/28/2019 Bone marrow today pending CT chest 07/21/19 [...] cord (Day 0=04/22/19) She is enrolled in [facility] "[id number]: A Multicenter, Randomized, Phase III Registration Trial [...] no prior mutations were de tected on [employer]. Her engraftment studies show 100% donor #2 (female) D+90. 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 -[facility] -Tacrolimus startedD-3 (goal 5-15) -s/p MMF [...] once daily for 5 days (07/27- ) then 5 mg daily for 5 days -Will monitor closely for symptoms -Continue triamcinolone cream as needed, no current areas of active rash [facility] phase 3 (IRB 98749) Acute GVHD Staging Complete on study visit [...] mL diarrhea/day 2 25-50% BSA 3.1-6 mg/dL 8547-2355 mL diarrhea/day 3 >50% BSA Generalized erythroderma [...] Plan for PFTs at Day +100 (requested angel ordonez, 07/14) ID: Recent admission for colitis and now being treated with Cirpo/Flagyl x7 days through . Continue prophylactic antimicrobials with Valtrex (recent hx HSV, will continue throu gh Day +365), posaconazole, pentamidine (given on07/09/19). Of note, patient is toxo negative . -Per cord protocol: Check EBV and HHV6 weekly. No hx of viremia Concern for fungal pneumonia, seen during routine CXR on recent admission and now s/p BAL p er ID/pulm recs. Workup negative to date -Posaconazole, last level on 07/10=0.3 and increased to 400mg daily -Repeat Chest CT 07/21/19 reviewed and improved. -Broad range PCR from BAL on 07/11 remains negative FEN: Continues with low bacteria diet through Day +100. Appetite improved since treating co litis and starting prednisone. Electrolytes improved. -HypoMg 2/2 CNI: Start oral mag replacement in hopes of getting off IV -HypoK: Resolved and Now on KDur 30 mEq daily GI: Nausea resolved with steroids as above. Risk of gastritis: Continue Pepcid 20 mg BID Risk for VOD:no e/o this currently. Completed Ursodiol 500 mgPO BID through Day +90 ( 07/20/19) Pysch: #Insomnia related to RLS: continue Requip 0.5 mg qHS #Depression:Stable, continue home SSRI. -Lexapro 20 mg PO daily Plan RTC next week to review bone marrow biopsy results -Plan to go home to [place] after D+100. -Requested FU apt with Dr. Sequeira. -Remove central line Sejal De La Torre DO Customer Solutions Representativeagribusiness professor [facility] documented in thi s encounter Plan of Treatment Not on filedocumented as of this encounter Visit Diagnoses + + | Diagnosis | + + | 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 Administered Medications + +--------+ +--------+------+---------+ | Medication Order | MAR | Action | Dose | Rate | Site | | | Action | Date | | | | + +--------+ +--------+------+---------+ | influenza vaccine | Given | 07/28/20 | 0.5 mL | | Right | | (FLUZONE,FLUARIX,FLUAVAL) (PF) IM | | 20 9:59 | | | Deltoid | | injection (age 6 months or | | AM PST | | | | | greater) 0.5 mL 0.5 mL, | | | | | | | intramuscular, ONCE, 1 dose, Cheryl | | | | | | | 07/28/19 at 0915 | | | | | | + +--------+ +--------+------+---------+ +---+---+ | | | +---+---+ + +-------+ +--------+---+---------+ | pneumococcal (13-melly) conjugate | Given | 07/28/19 | 0.5 mL | | Left | | vaccine (PREVNAR 13) injection | | 20 9:58 | | | Deltoid | | 0.5 mL 0.5 mL, intramuscular, | | AM PST | | | | | ONCE, 1 dose, Cheryl 07/28/19 at 0915 | | | | | | + +-------+ +--------+---+---------+ +---+---+ | | | +---+---+ documented in this encounter
--- OUTSIDE RECORDS SUMMARY | ~2020-03-12 | XMS | Encounter Summary ---
Demographics + + + | Address | [address] | | | [place] [address] | + + + | Home Phone [...] Team Providers + +------+ + | Care Gas Cutter Name | Role | Phone | + +------+ + | Meredith Sanchez | PCP | | + +------+ + Reason for Referral PROC - Dept/Practice Procedure (Routine) +--------+--------+ + + + + | Status | Reason | Specialty | Diagnoses / | Referred By | Referred To | | | | | Procedures | Contact | Contact | +--------+--------+ + + + + | Closed | | Interventiona | Diagnoses | Wil | Boris Body | | | | l Radiology | S/P cord | Sejal Meadows, | s [address] | | | | | blood | DO [address] | [address] | | | | | transplantat | [address] | [address]jan | | | | | ion MDS | [address] | Mailcode: | | | | | (myelodyspla | [place], [place] | [address] | | | | | stic | [phone] [facility] | | | | | syndrome) | Phone: | Hospital | | | | | (HCC) GVHD | [phone] | [facility] | | | | | (graft | Fax: | [place], [place] | | | | | versus host | [phone] | [phone] | | | | | disease) | | Phone: | | | | | (HCC) | | [phone] | | | | | Procedures | | Fax: | | | | | IR CENTRAL | | [phone] | | | | | VENOUS | | | | | | | ACCESS | | | | | | | PROCEDURE | | | | | | | [place] REMOVAL | | | | | | | TUNNELED CV | | | | | | | CATH [place] | | | | | | | REMOVAL RIOC | | | | | | | CV CATH W SQ | | | | | | | PORT/PUMP | | | | | | | [place] | | | | | | | FLUOROGUIDE | | | | | | | FOR VEIN | | | | | | | DEVICE | | | +--------+--------+ + + + + Encounter Details +--------+ + + + + | Date | Type | Department | Care Team | Description | +--------+ + + + + | 07/29/ | Arabic Professor | [facility] | Sejal De La Torre | S/P cord blood | | 2020 | | Clinics at S | N, DO [address] | transplantation | | | | [facility] [address] | (Primary Dx); MDS | | | | [facility] for | [facility] [place]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Health and Healing, | [address]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); | | | | Building 2 | [phone] | GVHD (graft versus | | | | [place], [place] | | host disease) (HCC) | | | | [address] | | | | | | [phone] | | | +--------+ + + + [...] of this encounter Plan of Treatment + +---------+--------+ + + | Name | Type | Priori | Associated Diagnoses | Date/Time | | | | ty | | | + +---------+--------+ + + | IR CENTRAL VENOUS | Imaging | Routin | S/P cord blood | 08/02/2019 1:23 PM | | ACCESS PROCEDURE | | e | transplantation MDS | PST | | | |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|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) | | | | | | GVHD (graft versus | | | | | | host disease) (HCC) | | + +---------+--------+ + + + +---------+--------+ + + | Name | Type | Priori | Associated Diagnoses | Order Schedule | | | | ty | | | + +---------+--------+ + + | IR CENTRAL VENOUS | Imaging | Routin | S/P cord blood | Expected: | | ACCESS PROCEDURE | | e | transplantation MDS | 07/29/2019, Expires: | | | | | (myelodysplastic | 08/28/2020 | | | |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) | | | | | | GVHD (graft versus | | | | | | host disease) (HCC) | | + +---------+--------+ + + documented as of this encounter Visit Diagnoses + + | Diagnosis | + + | S/P cord blood transplantation - Primary Other specified organ or tissue replaced by | | transplant | + + | MDS (myelodysplastic syndrome) (HCC) Myelodysplastic syndrome, unspecified | + + | 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
--- OUTSIDE RECORDS SUMMARY | ~2020-03-12 | XMS | Encounter Summary ---
Demographics + + + | Address | [address] | | | [place] [address] | + + + | Home Phone | | + + + | Preferred Language | Unknown | + + + | Marital Status | Single | + + + | Alevism Affiliation | NRP | + + + | Race | White | + + + | Ethnic Group | Not or | + + + Author + + + | Author | [facility] | + + + | Organization | [facility] | + + + | Address | Unknown | + + + | Phone | Unavailable | + + + Support + + +---------+ + | Name | Relationship | Address | Phone | + + +---------+ + | Claudia Cota | ECON | Unknown | | + + +---------+ + Care Team Providers + +------+ + | Care Special Events Driver Name | Role | Phone | + +------+ + | Meredith Sanchez | PCP | | + +------+ + Reason for Visit + +--------+ + | Reason | Onset | Comments | | | Date | | + +--------+ + | Medication | 07/18/ | | | Adjustment | 2020 | | + +--------+ + Encounter Details +--------+ + + + + | Date | Type | Department | Care Team | Description | +--------+ + + + + | 07/18/ | Telephone | [facility] | Sejal De La Torre | Medication | | 2020 | | Clinics at S | N, DO [address] | Adjustment | | | | [facility] [address] | | | | | [facility] [place] for | [place], [place] | | | | | Health and Healing, | [address] | | | | | [address] | [phone] | | | | | [place], [place] | | | | | | [address] | | | | | | [phone] | | | +--------+ + + + [...] this encounter Miscellaneous Notes Telephone Encounter - Daily Stern RN - 07/18/2019 1:15 PM PSTInitial Assessment Nona Hopper's contact center engineer for today is patient, Nona Hopper, and her conta ct phone number for today 07/18 is: [phone]. Nona has been advised of when to expect a confirmation call regarding any necessary dose adjustments: yes. Nona was asked to contact this clinic if she has not received a confirma tion call within 24 hours. Nona reports she currently takes Tacrolimus 1 mg every morning and 0.5 mg every evening. This is the correct dose according to her most recent dose adjustment. Nona took her last dose at 21:30 (time) on 07/17/2019 (date). Daily Stern RN P STdocumented in this encounter Plan of Treatment Not on filedocumented as of this encounter Visit Diagnoses Not on filedocumented in this encounter"
--- OUTSIDE RECORDS SUMMARY | ~2020-03-12 | XMS | Encounter Summary ---
Demographics + + + | Address | [address] | | | [place] [address] | + + + | Home Phone [...] + +------+ + | Care Director Of Development And Marketing Name | Role | Phone | + +------+ + | Meredith Sanchez | PCP | | + +------+ + Reason for Visit + +--------+ + | Reason | Onset | Comments | | | Date | | + +--------+ + | Prior Authorization | 07/01/ | | | Request | 2020 | | + +--------+ + Encounter Details +--------+ + + + + | Date | Type | Department | Care Team | Description | +--------+ + + + + | 07/01/ | Telephone | Pharmacy @ [facility] | Yanique Morris CPhT | Prior Authorization | | 2020 | | [address] [facility] | Request | | | | Reji Callahan Mailcode: | [address]ly [address] [place], | | | | | [facility] | [place] [address] | | | | | and Healing, | | | | | | [address] | | | | | | [place], [place] | | | | | | [address] | | | +--------+ + + + [...] this encounter Miscellaneous Notes Telephone Encounter - Yanique Morris CPhT - 07/08/2019 11:12 AM PSTBeclomethasone PA is appro esvin 07/08/19 to 10/07/19 by Butch MICHEL PA: [id number] signed by Yanique Morris CPhT at 07/08/2019 11:14 AM PSTTelephone Encounter - Sabino Raygoza PharmD - 07/07/2019 11:26 PM P STPharmacy Documentation MISC - beclomethasone benefit investigation :: 60 Minutes Spent Patient's oral beclomethasone was denied by medicaid due to not being FDA-approved for GVHD treatment. Contacted patient's medicaid appeal department ([phone]) and conducted a pe er-to-peer with clinical review pharmacist Elham. I was informed that we should receive a res ponse in the next 24-48 hours. A call will made to the pharmacist BMT clinic phone number at [phone]. Sabino Raygoza Pharm.D., BCOP elephone Encounter - Yanique Morris CPhT - 07/01/2019 1:23 PM PSTPrior authorization for Beclomethasone 1mg/mL co mpounded oral suspension has been denied by Butch MICHEL a second time. This compound con tains beclomethasone dipropionate powder which is excluded from coverage under Medicaid elizabeth use it is not approved by the FDA. Butch MICHEL documented in this enco unter Plan of Treatment Not on filedocumented as of this encounter Visit Diagnoses Not on filedocumented in this encounter"
--- OUTSIDE RECORDS SUMMARY | ~2020-03-12 | XMS | Encounter Summary ---
Demographics + + + | Address | [address] | | | [place] [address] | + + + | Home Phone | | + + + | Preferred Language | Unknown | + + + | Marital Status | Single | + + + | Scientologist Affiliation | NRP | + + + | Race | White | + + + | Ethnic Group | Not or | + + + Author + + + | Author | [facility] | + + + | Organization | [facility] | + + + | Address | Unknown | + + + | Phone | Unavailable | + + + Support + + +---------+ + | Name | Relationship | Address | Phone | + + +---------+ + | Claudia Cota | ECON | Unknown | | + + +---------+ + Care Team Providers + +------+ + | Care Foxpro Developer Name | Role | Phone | + +------+ + | Meredith Sanchez | PCP | | + +------+ + Encounter Details +--------+ + + + + | Date | Type | Department | Care Team | Description | +--------+ + + + + | 05/11/ | Pharmacy | Specialty Pharmacy | | | | 2019 | Visit | Services [address] | | | | | | [address] | | | | | | [place], [place] | | | | | | [address] | | | | | | [phone] | | | +--------+ + + + [...]
--- OUTSIDE RECORDS SUMMARY | ~2020-03-12 | XMS | Encounter Summary ---
Demographics + + + | Address | [address] | | | [place] [address] | + + + | Home Phone | | + + + | Preferred Language | Unknown | + + + | Marital Status | Single | + + + | Restoration Affiliation | NRP | + + + [...] Team Providers + +------+ + | Care Acid Recovery Operator Name | Role | Phone | + +------+ + | Meredith Sanchez | PCP | | + +------+ + Encounter Details +--------+ + + + + | Date | Type | Department | Care Team | Description | +--------+ + + + + | 03/22/ | Hospital | Diagnostic Imaging | Mello Archibald, | | | 2018 | Encounter | Services at [facility] | [address] | | | | | [address] | [address] | | | | | Melly AGUILAR | [place], [place] | | | | | [facility], [address] [place] [address] | [address] | | | | | [place], [place] | [phone] | | | | | [address] | | | | | | [phone] | | | +--------+ + + + [...] | + +--------+ + + + | X-RAY CHEST 2 VIEW | Urgent | 03/22/2019 | MDS | Results for this | | | | 2:21 PM | (myelodysplastic | procedure are in the | | | | PDT | syndrome) ([facility]) | results section. | + +--------+ + + + documented in this encounter Results X-RAY CHEST 2 VIEW (03/22/2019 2:21 PM PDT) + + | Specimen | + + | | + + + + + | Narrative | Performed At | + + + | EXAM: CHEST 2 VIEWS HISTORY: TBI Lung block creation | [facility] | | COMPARISON: None. FINDINGS: The cardiomediastinal contour is | RADIOLOGY VOICE | | normal. The lungs are clear. There is no pleural effusion or | RECOGNITION 2 | | pneumothorax. There is no pulmonary edema. The bones are intact. | | | IMPRESSION: Clear lungs. I have personally reviewed the images | | | and, if necessary, edited the report. I agree with the report as now | | | presented. Final signature: Marcela Mcmillan MD 03/22/2019 | | | 2:41 PM Preliminary: Marcela Mcmillan MD Dictation | | | initiated: Marcela Mcmillan MD 03/22/2019 2:40 PM | | + + + + + | Procedure Note | + + | Service Account, Radiant Res In Interface - 03/22/2019 2:42 PM PDT EXAM: CHEST 2 | | VIEWS HISTORY: TBI Lung block creation COMPARISON: None. FINDINGS: The | | cardiomediastinal contour is normal. The lungs are clear. There is no pleural effusion | | or pneumothorax. There is no pulmonary edema. The bones are intact. IMPRESSION: Clear | | lungs. I have personally reviewed the images and, if necessary, edited the report. I | | agree with the report as now presented. Final signature: Marcela Mcmillan MD | | 03/22/2019 2:41 PM Preliminary: Marcela Mcmillan MD Dictation initiated: Marcela Serna | | MD Hipolito 03/22/2019 2:40 PM | |The cardiomediastinal contour is normal. The lungs are clear. There is no pleural effusion or pneumothorax. There is no pulmonary edema. The bones are intact. | | | |IMPRESSION: | | | |Clear lungs. | | | |I have personally reviewed the images and, if necessary, edited the report. I agree with th e report as now presented. | | | |Final signature: Marcela Mcmillan MD 03/22/2019 2:41 PM | |Preliminary: Marcela Mcmillan MD | |Dictation initiated: Marcela Mcmillan MD 03/22/2019 2:40 PM | + + + +---------+ + [...]
--- OUTSIDE RECORDS SUMMARY | ~2020-03-12 | XMS | Encounter Summary ---
Demographics + + + | Address | [address] | | | [place] [address] | + + + | Home Phone [...] Team Providers + +------+ + | Care Plumbing Installer Name | Role | Phone | + +------+ + | Meredith Sanchez | PCP | | + +------+ + Encounter Details +--------+ + + + + | Date | Type | Department | Care Team | Description | +--------+ + + + + | 05/09/ | Pharmacy | Specialty Pharmacy | | | | 2019 | Visit | Services [address] | | | | | | [address] | | | | | | [place], [place] | | | | | | [address] | | | | | | [phone] | | | +--------+ + + + [...]
--- OUTSIDE RECORDS SUMMARY | ~2020-03-12 | XMS | Encounter Summary ---
Demographics + + + | Address | [address] | | | [place] [address] | + + + | Home Phone | | + + + | Preferred Language | Unknown | + + + | Marital Status | Single | + + + | Mandaeism Affiliation | NRP | + + + [...] Team Providers + +------+ + | Care Instrument Mechanic Weapons System Name | Role | Phone | + +------+ + | Meredith Sanchez | PCP | | + +------+ + Encounter Details +--------+ + + + + | Date | Type | Department | Care Team | Description | +--------+ + + + + | 07/28/ | Hospital | Diagnostics at [facility] | Tech, Pfl Ped | | | 2020 | Encounter | [address] | [address] | | | | | Sandra | [facility] | | | | | [facility] | [place] [address] | | | | | [address] [place] [address] | | | | | | [place], [place] | | | | | | [address] | | | | | | [phone] | | | +--------+ + + + [...] + + + +---------+ + + | omeprazole 40 mg | Take 1 capsule by | 21 | 3 | 07/28/19 | | | oral capsule,delayed | mouth once daily. | capsule | | 20 | | | release(DR/EC) | Administer 30 to 60 | | | | | | | minutes before meals | | | | | + + [...] + | SPIROMETRY, PULM | Routin | 07/28/2019 | S/P cord blood | Results for this | | FUNCTION LAB | e | 1:19 PM | transplantation | procedure are in the | | [...] + + + | PULMONARY | Site: [facility] and | | [facility] | | | INTERPRETAT | [facility] | | SPECIAL | | | ION | [address] [facility] | | DIAGNOSTICS | | | | [address],[place], [place], | | - | | | | [address]ST: [phone] | | PULMONARY | | | | Name: ANALY HOPPER | | FUNCTION | | | | ANNVisit Date: | | | | | | 07/28/2019 Second ID: | | | | | | [id number]: | | | | | | Rich FaithAge: 53 | | | | | | : 1965 Sex: | | | | | | Female Race: | | | | | | CaucasianHeight: 62.60 | | | | | | Inches Weight: | | | | | | 124.34 Lbs BSA: | | | | | | 1.57Order IDs: | | | | | | [id number] | | | | | | Test(s): [...] + + + + + + | QBU37-04% | 1.15 | 2.49 L/sec | [facility] | | | PRE | | | SPECIAL | | | | | | DIAGNOSTICS | | | | | | - | | | | | | PULMONARY | | | | | | FUNCTION | | + + + + + + | ETL52-94% | 46 | % | [facility] | [...] + + + + + | [facility] | [address] | [place], [place] | | | DIAGNOSTICS - | [address] | [address] | | | PULMONARY FUNCTION | | | | + + + + + documented in this encounter Visit Diagnoses + + | Diagnosis | + + | S/P cord blood transplantation Other specified organ or tissue replaced by transplant | + + documented in this encounter"
--- OUTSIDE RECORDS SUMMARY | ~2020-03-12 | XMS | Encounter Summary ---
Demographics + + + | Address | [address] | | | [place] [address] | + + + | Home Phone | | + + + | Preferred Language | Unknown | + + + | Marital Status | Single | + + + | Zoroastrianism Affiliation | NRP | + + + | Race | White | + + + | Ethnic Group | Not or | + + + Author + + + | Author | [facility] | + + + | Organization | [facility] | + + + | Address | Unknown | + + + | Phone | Unavailable | + + + Support + + +---------+ + | Name | Relationship | Address | Phone | + + +---------+ + | Claudia Cota | ECON | Unknown | | + + +---------+ + Care Team Providers + +------+ + | Care Credit Operations Specialist Name | Role | Phone | + +------+ + | Meredith Sanchez | PCP | | + +------+ + Encounter Details +--------+ + + + + | Date | Type | Department | Care Team | Description | +--------+ + + + + | 05/17/ | Pharmacy | Specialty Pharmacy | | | | 2019 | Visit | Services [address] | | | | | | [address] | | | | | | [place], [place] | | | | | | [address] | | | | | | [phone] | | | +--------+ + + + [...]
--- OUTSIDE RECORDS SUMMARY | ~2020-03-12 | XMS | Encounter Summary ---
Demographics + + + | Address | [address] | | | [place] [address] | + + + | Home Phone | | + + + | Preferred Language | Unknown | + + + | Marital Status | Single | + + + | Confucianist Affiliation | NRP | + + + [...] Team Providers + +------+ + | Care Lease Examiner Name | Role | Phone | + +------+ + | Meredith Sanchez | PCP | | + +------+ + Encounter Details +--------+--------+ + + + | Date | Type | Department | Care Team | Description | +--------+--------+ + + + | 08/01/ | Travel | | | | | [...]
--- OUTSIDE RECORDS SUMMARY | ~2020-03-12 | XMS | Encounter Summary ---
Demographics + + + | Address | [address] | | | [place] [address] | + + + | Home Phone | | + + + | Preferred Language | Unknown | + + + | Marital Status | Single | + + + | Methodist Affiliation | NRP | + + + [...] Team Providers + +------+ + | Care Lean Manager Name | Role | Phone | + +------+ + | Meredith Sanchez | PCP | | + +------+ + Encounter Details +--------+ + + + + | Date | Type | Department | Care Team | Description | +--------+ + + + + | 07/06/ | House Rn | [facility] | Sejal De La Torre | S/P cord blood | | 2020 | | Clinics at S | N, DO [address] | transplantation | | | | [place] [address] | (Primary Dx); 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[facility], [place]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[facility], | [address]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) | | | | Building [address] | [phone] | | | | | [place], [place] | | | | | | [address] | | | | | | [phone] | | | +--------+ + + + [...] of this encounter Results LYMPHOCYTE ACTIVATION(LYMPH RECONSTITUTION/ACTIVATE),BLOOD (07/07/2019 9:41 AM PST) + + + + + + | Component | Value | Ref Range | Performed | Pathologist | | | | | At | Signature | + + + + + + | T-CELLS(CD3 | 55.235 | 49.0-85.0 % of | [facility] | | | +)% | | Lymphs % of | LABORATORY | | | | | Lymphs | SERVICES, | | | | | | SPECIAL IMM | | | | | | + COAG | | + + + + + + | T-CELLS(CD3 | 640 | [phone] | [facility] | | | +)# | | Cells/uL | LABORATORY | | | | | | SERVICES, | | | | | | SPECIAL IMM | | | | | | + COAG | | + + + + + + | HELPER | 53.009 | 26.0-61.0 % of | [facility] | | | T-CELLS(CD3 | | Lymphs % of | LABORATORY | | | +CD4+)% | | Lymphs | SERVICES, | | | | | | SPECIAL IMM | | | | | | + COAG | | + + + + + + | HELPER | 614 | [phone] | [facility] | | | T-CELLS(CD3 | | Cells/uL | LABORATORY | | | +CD4+)# | | | SERVICES, | | | | | | SPECIAL IMM | | | | | | + COAG | | + + + + + + | CYTOTOXIC | 1.979 | 10.0-31.0 % of | [facility] | | | T-CELLS(CD3 | | Lymphs % of | LABORATORY | | | +CD8+)% | | Lymphs | SERVICES, | | | | | | SPECIAL IMM | | | | | | + COAG | | + + + + + + | CYTOTOXIC | 23 (L) | 59 - 699 | [facility] | | | T-CELLS(CD3 | | Cells/uL | LABORATORY | | | +CD8+)# | | | SERVICES, | | | | | | SPECIAL IMM | | | | | | + COAG | | + + + + + + | CD4:CD8 | 26.786 (H) | 1.000 - 3.600 | [facility] | | | RATIO | | Ratio | LABORATORY | | | | | | SERVICES, | | | | | | SPECIAL IMM | | | | | | + COAG | | + + + + + + | T-REG(4+127 | 6.018 | <10.000 % of | [facility] | | | -[id number]+) | | Lymphs | LABORATORY | | | % | | | SERVICES, | | | | | | SPECIAL IMM | | | | | | + COAG | | + + + + + + | T-REG(4+127 | 70 | Cells/uL | [facility] | | | -[id number]+) | | | LABORATORY | | | # | | | SERVICES, | | | | | | SPECIAL IMM | | | | | | + COAG | | + + + + + + | DNT-CELLS(C | 0.165 | <6.000 % of | [facility] | | | D3+CD4-CD8- | | Lymphs | LABORATORY | | | )% | | | SERVICES, | | | | | | SPECIAL IMM | | | | | | + COAG | | + + + + + + | DNT-CELLS(C | 2 | Cells/uL | [facility] | | | D3+CD4-CD8- | | | LABORATORY | | | )# | | | SERVICES, | | | | | | SPECIAL IMM | | | | | | + COAG | | + + + + + + | TCRAB | 0.082 | <=1.500 % of | [facility] | | | DNT-CELLS(3 | | Lymphs | LABORATORY | | | +AB+4-8-)% | | | SERVICES, | | | | | | SPECIAL IMM | | | | | | + COAG | | + + + + + + | TCRAB | 1 | Cells/uL | [facility] | | | DNT-CELLS(3 | | | LABORATORY | | | +AB+4-8-)# | | | SERVICES, | | | | | | SPECIAL IMM | | | | | | + COAG | | + + + + + + | TCR AB | 99.254 (H) | 90.000 - 99.000 | [facility] | | | T(CD3+AB+)% | | % of T Cells | LABORATORY | | | OF T-CELLS | | | SERVICES, | | | | | | SPECIAL IMM | | | | | | + COAG | | + + + + + + | TCR AB | 635 | Cells/uL | [facility] | | | T(CD3+AB+)# | | | LABORATORY | | | | | | SERVICES, | | | | | | SPECIAL IMM | | | | | | + COAG | | + + + + + + | TCR GD | 0.224 | <10.000 % of T | [facility] [...] + + + + | MODIFIED | 0.124 | % of Lymphs | [facility] | | | T-CELLS(CD3 | | | LABORATORY | | | +CD19+)% | | | SERVICES, | | | | | | SPECIAL IMM | | | | | | + COAG | | + + + + + + | MODIFIED | 1 | Cells/uL | [facility] | [...] + + + | NA VE | 15.738 | % of T Cells | [facility] | | | T(CD3+CD45R | | | LABORATORY | | | A+)% OF | | | SERVICES, | | | T-CELLS | | | SPECIAL IMM | | | | | | + COAG | | + + + + + + | NA VE | 101 | Cells/uL | [facility] | | | T(CD3+CD45R | | | LABORATORY | | | A+)# | | | SERVICES, | | | | | | SPECIAL IMM | | | | | | + COAG | | + + + + + + | MEMORY | 77.342 | % of T Cells | [facility] | | | T(CD3+CD45R | | | LABORATORY | | | O+)% OF | | | SERVICES, | | | T-CELLS | | | SPECIAL IMM | | | | | | + COAG | | + + + + + + | MEMORY | 495 | Cells/uL | [facility] | | | T(CD3+CD45R | | | LABORATORY | | | O+)# | | | SERVICES, | | | | | | SPECIAL IMM | | | | | | + COAG | | + + + + + + | T-CELL | 0.909 | <10.000 % of | [facility] | | | ACTIVATION( | | Lymphs | LABORATORY | | | CD3+CD69+)% | | | SERVICES, | | | | | | SPECIAL IMM | | | | | | + COAG | | + + + + + + | T-CELL | 11 | Cells/uL | [facility] | | | ACTIVATION( | | | LABORATORY | | | CD3+CD69+)# | | | SERVICES, | | | | | | SPECIAL IMM | | | | | | + COAG | | + + + + + + | T-CELL | 16.560 (H) | <10.000 % of | [facility] | | | ACTIVATION( | | Lymphs | LABORATORY | | | CD3+HLA-DR+ | | | SERVICES, | | | )% | | | SPECIAL IMM | | | | | | + COAG | | + + + + + + | T-CELL | 192 | Cells/uL | [facility] | | | ACTIVATION( | | | LABORATORY | | | CD3+HLA-DR+ | | | SERVICES, | | | )# | | | SPECIAL IMM | | | | | | + COAG | | + + + + + + | PD1 | 5.857 | <50.000 % of | [facility] | | | T-CELL(CD3+ | | Lymphs | LABORATORY | | | PD1+)% | | | SERVICES, | | | | | | SPECIAL IMM | | | | | | + COAG | | + + + + + + | PD1 | 68 | Cells/uL | [facility] | | | T-CELL(CD3+ | | | LABORATORY | | | PD1+)# | | | SERVICES, | | | | | | SPECIAL IMM | | | | | | + COAG | | + + + + + + | PD1 HELPER | 10.288 | % of T Cells | [facility] | | | T OF | | | LABORATORY | | | T-CELLS % | | | SERVICES, | | | | | | SPECIAL IMM | | | | | | + COAG | | + + + + + + | PD1 HELPER | 66 | Cells/uL | [facility] | | | T # | | | LABORATORY | | | | | | SERVICES, | | | | | | SPECIAL IMM | | | | | | + COAG | | + + + + + + | PD1 | 0.061 | % of T Cells | [facility] | | | CYTOTOXIC T | | | LABORATORY | | | OF T-CELLS | | | SERVICES, | | | % | | | SPECIAL IMM | | | | | | + COAG | | + + + + + + | PD1 | 0 | Cells/uL | [facility] | | | CYTOTOXIC T | | | LABORATORY | | | # | | | SERVICES, | | | | | | SPECIAL IMM | | | | | | + COAG | | + + + + + + | T-NK(CD3+CD | 0.157 | <8.000 % of | [facility] | | | 56+)% | | Lymphs | LABORATORY | | | | | | SERVICES, | | | | | | SPECIAL IMM | | | | | | + COAG | | + + + + + + | T-NK(CD3+CD | 2 | Cells/uL | [facility] | | | 56+)# | | | LABORATORY | | | | | | SERVICES, | | | | | | SPECIAL IMM | | | | | | + COAG | | + + + + + + | TOTAL | 13.236 | 5.000-28.000 % | [facility] | | | NK-CELLS(CD | | of Lymphs % of | LABORATORY | | | 3-CD56+)% | | Lymphs | SERVICES, | | | | | | SPECIAL IMM | | | | | | + COAG | | + + + + + + | TOTAL | 153 | 71 - 499 | [facility] | | | NK-CELLS(CD | | Cells/uL | LABORATORY | | | 3-CD56+)# | | | SERVICES, | | | | | | SPECIAL IMM | | | | | | + COAG | | + + + + + + | B-CELLS(CD1 | 16.889 | 4.000-17.000 % | [facility] | | | 9+)% | | of Lymphs % of | LABORATORY | | | | | Lymphs | SERVICES, | | | | | | SPECIAL IMM | | | | | | + COAG | | + + + + + + | B-CELLS(CD1 | 196 | 32 - 341 | [facility] | | | 9+)# | | Cells/uL | LABORATORY | | | | | | SERVICES, | | | | | | SPECIAL IMM | | | | | | + COAG | | + + + + + + | IGD+27-NA | 86.744 (H) | 50.000 - 80.000 | [facility] | | | VE B-CELLS | | % of B Cells | LABORATORY | | | OF B-CELL% | | | SERVICES, | | | | | | SPECIAL IMM | | | | | | + COAG | | + + + + + + | IGD+27+NON- | 0.233 (L) | 5.000 - 21.000 | [facility] | | | SWITCHED B | | % of B Cells | LABORATORY | | | OF B CELL% | | | SERVICES, | | | | | | SPECIAL IMM | | | | | | + COAG | | + + + + + + | IGD-27+SWIT | 4.419 (L) | 5.000 - 24.000 | [facility] | | | CHED MEMORY | | % of B Cells | LABORATORY | | | B OF | | | SERVICES, | | | B-CELL% | | | SPECIAL IMM | | | | | | + COAG | | + + + + + + | B1 | 0.393 | <6.000 % of | [facility] | | | B-CELLS(CD5 | | Lymphs | LABORATORY | | | +CD19+)% | | | SERVICES, | | | | | | SPECIAL IMM | | | | | | + COAG | | + + + + + + | B1 | 5 | Cells/uL | [facility] | | | B-CELLS(CD5 | | | LABORATORY | | | +CD19+)# | | | SERVICES, | | | | | | SPECIAL IMM | | | | | | + COAG | | + + + + + + | KAPPA/LAMBD | 1.397 | <3.000 Ratio | [facility] | | | A RATIO | | | LABORATORY | | | | | | SERVICES, | | | | | | SPECIAL IMM | | | | | | + COAG | | + + + + + + | MYELOID | 55.631 | 50.0-70.0 % of | [facility] | | | CELLS(16+13 | | WBC % of WBC | LABORATORY | | | +)% | | | SERVICES, | | | | | | SPECIAL IMM | | | | | | + COAG | | + + + + + + | MYELOID | 3,705 | 1,800-7,700 | [facility] | | | CELLS(16+13 | | Cells/uL | LABORATORY | | | +)# | | | SERVICES, | | | | | | SPECIAL IMM | | | | | | + COAG | | + + + + + + | MONOCYTES(1 | 12.116 | 3.5-9.0 % of | [facility] | | | 4+13+)% | | WBC % of WBC | LABORATORY | | | | | | SERVICES, | | | | | | SPECIAL IMM | | | | | | + COAG | | + + + + + + | MONOCYTES(1 | 807 | 100 - 900 | [facility] | | | 4+13+)# | | Cells/uL | LABORATORY | | | | | | SERVICES, | | | | | | SPECIAL IMM | | | | | | + COAG | | + + + + + + | MDCS % | 0.123 | <=2.000 % of | [facility] | | | | | WBC | LABORATORY | | | | | | SERVICES, | | | | | | SPECIAL IMM | | | | | | + COAG | | + + + + + + | MDCS # | 8 | 4-32 Cells/uL | [facility] | | | | | Cells/uL | LABORATORY | | | | | | SERVICES, | | | | | | SPECIAL IMM | | | | | | + COAG | | + + + + + + | PDCS % | 0.180 | <=2.000 % of | [facility] | | | | | WBC | LABORATORY | | | | | | SERVICES, | | | | | | SPECIAL IMM | | | | | | + COAG | | + + + + + + | PDCS # | 12 | 1-20 Cells u/L | [facility] | [...] + | Reviewed and electronically signed by Sejal Dallas MD 07/11/2019 | [facility] | | 3:04 PM Immunophenotyping and enumeration of lymphocyte | LABORATORY | | subpopulations are performed using following antibodies: CD3 | SERVICES, | | CD4 CD5 CD8 CD11c CD13 CD14 CD16 | SPECIAL IMM + | | CD19 CD25 CD27 CD56 CD45RA CD45RO | COAG | | CD45 CD69 CD123 CD127 PD1(CD279) HLA-DR IgD TCR | | | a/b TCR g/d Corwith Lambda (Analyte specific reagents are used in | | | many laboratory tests necessary for standard medical care. This test | | | was developed and its performance characteristics determined by [facility] | | | laboratories. It has not been cleared or approved by the [place] Food and | | | Drug Administration (FDA). FDA does not require this test to go | | | through premarket FDA review. This test is used for clinical purposes. | | | It should not be regarded as investigational or for research. The | | | laboratory is certified under the Clinical Laboratory Improvement | | | Amendments (CLIA) as qualified to perform high complexity clinical | | | laboratory testing. My electronic signature indicates that I have | | | personally reviewed and interpreted the flow cytometric data | | | pertaining to this case. Reviewed and electronically signed by | | | Sejal Dallas MD 07/11/2019 3:04 PM | | + + + + + + + + | Performing | Address | City/State/Zipcode | Phone Number | | Organization | | | | + + + + + | [employer] | [address] | [place] [address] | | | SERVICES, SPECIAL | PARK [...]
--- OUTSIDE RECORDS SUMMARY | ~2020-03-12 | XMS | Encounter Summary ---
Demographics + + + | Address | [address] | | | [place] [address] | + + + | Home Phone [...] Providers + +------+ + | Care Senior Telecommunications Consultant Name | Role | Phone | + +------+ + | Meredith Sanchez | PCP | | + +------+ + Encounter Details +--------+ + + + + | Date | Type | Department | Care Team | Description | +--------+ + + + + | 07/12/ | Pharmacy | Specialty Pharmacy | | | | 2019 | Visit | Services [address] | | | | | | [address] | | | | | | [place], [place] | | | | | | [address] | | | | | | [phone] | | | +--------+ + + + [...]
--- OUTSIDE RECORDS SUMMARY | ~2020-03-12 | XMS | Encounter Summary ---
Demographics + + + | Address | [address] | | | [place] [address] | + + + | Home Phone [...] Team Providers + +------+ + | Care Embedded Software Architect Name | Role | Phone | + [...] | | | | | Procedures | [address] | [address] | | | | | [place] | Phone: | Phone: | | | | | OFFICE/OUTPT | [phone] | [phone] | | | | | | Fax: | Fax: | | | | | VISIT,CORTNEY RIDDLE | [phone] | [phone] | | | | | VL IV | | | +--------+--------+ + + + + Encounter Details +--------+---------+ + + + | Date | Type | Department | Care Team | Description | +--------+---------+ + + + | 04/14/ | Office | [facility] | Sejal De La Torre | Acute deep vein | | 2019 | Visit | Clinics at S | N, DO [address] | thrombosis (DVT) of | | | | [facility] [address] [facility] | both upper | | | | [facility] | [place], [place] | extremities, | | | | Health and Healing, | [address] | unspecified vein | | | | [address] | [phone] | (HCC) (Primary Dx); | | | | [place], [place] | | MDS (myelodysplastic | | | | [address] |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); | | | | [phone] | | Stem cell transplant | | | | | | candidate | +--------+---------+ + + + Social History [...] + + + | Blood Pressure | 133/76 | 04/14/2019 12:27 PM | | | | | PDT | | + + + + + | Pulse | 75 | 04/14/2019 12:27 PM | | | | | PDT | | + + + + + | Temperature | 36.7 C (98 F) | 04/14/2019 12:27 PM | | | | | PDT | | + + + + + | Respiratory Rate | - | - | | + + + + + | Oxygen Saturation | 96% | 04/14/2019 12:27 PM | | | | | PDT | | + + + + + | Inhaled Oxygen | - | - | | | Concentration | | | | + + + + + | Weight | 68.9 kg (152 lb) | 04/14/2019 12:27 PM | | | | | PDT | | + + + + + | Height | - | - | | + + + + + | Body Mass Index | 27.8 | 01/14/2019 3:08 PM | | | [...] of this encounter Patient Instructions Patient Instructions Sean Barnard RN - 04/14/2019 12:00 PM PDTLook over the transplant david endar given to you today. If you have any questions please give us a call. If you have no questions wwe will see you after discharge. Sean Barnard RN is Dr. Rooney Nurse Coordinator. My direct line is [phone] or you may contact me through Skeeble. Please note that I am off on Mondays. If you develop any symptoms or have any urgent medical questions, please call the Triage Nu rse at [phone] or [phone] (Thursday - Thursday 8:30-4:30). During after jeni rs, please call [phone] and ask to have the BMT Person Button Decorating Machine Operator paged. If you have any questions about appointments or need to call to make a follow up appointmen t, please call the front line supervisor at [phone]. FOR PRESCRIPTIONS: please allow 48-72 hours for prescription refills. Please make sure no r efills remain prior to calling. If refills remain, please call your pharmacy for a refill. documented in this encounter Progress Notes Sejal De La Torre, DO - 04/14/2019 12:00 PM PDT BMT OUTPATIENT NOTE [facility] [address] [address] Reason for Visit Consent visit for planned FluCyTBI CB transplant on gamida -SOC arm CBU 1: [id number] -10/02 match CBU 2: [id number] -10/02 match MDS (myelodysplastic syndrome) (HCC) 11/30/2018 Initial Diagnosis MDS (myelodysplastic syndrome) (HCC) 12/02/2018 - 12/29/2018 Chemotherapy azaCITIDine (VIDAZA) injection 125 mg, 75 mg/m2 = 125 mg, subcutaneous, ONCE, 1 of 6 cycl es 04/15/2019 - Chemotherapy fludarabine (FLUDARA) 42.5 mg in NaCl 0.9 % (NS) IV, 25 mg/m2 = 42.5 mg, intravenous, CANDICE RY 24 HOURS, 0 of 1 cycle cyclophosphamide (CYTOXAN) 60 mg/kg = 4,000 mg in NaCl 0.9 % (NS) IV, 60 mg/kg = 4,000 mg, intravenous, EVERY 24 HOURS, 0 of 1 cycle History of Present Illness: Nona Hopper is a 53 year old female with 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 The patient has a past medical hi story that includes uterine fibroids and fibroid removal from the left breast. Her hematogic al history dates back to 2015 when she noted progressive fatigue. 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 She was worki [employer] 6 days per week and thought she was working too hard. She left her job in August 2017 to g yamileth herself some time to feel better. She had been to various physicians in [place] for fatigue w ithout answers. In January 15, she developed fevers up to 104. She was tested for lyme disease, rheumatological conditions which were all negative. She began to notice that her counts wer e dropping. She relocated to [facility] from [place] to live with her niece in 06/2018. She sa w a local PA in [facility] 07/2018 Meredith Sanchez who did further testing. Labs on 10/07/18 showed normal chemistries, Bilirubin 1.4, hepatitis negative, ESR elevated at 174 with RA, A NA C3/C4 negative. CBC showed WBC 2.4, Hb 10.8, Plt 166K, ANC 1529. She was referred to Dr. Sequeira (medical oncology) on 10/29. Bone marrow biopsy was performed on 11/05 showing hype rcellular marrow (70%) with 18% by morphology and 26% on flow. Mild erythroid hyperplasia an d megakaryocytic atypia. Blast immunophenotype was positive for CD33, CD45 dim, CD34, CD15, CD117, CD 11c, MPO. 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 Cytogenetics were normal. MDS and AML FISH panel was negative. NGS panel was negative for FLT3, NPM1, CE BPA, c-KIT, IDH1, IDH2, TP53. She started Vidaza locally on December 24 however developed a ra sh to the SQ injection and missed D3, dexamethasone was added for D4-D7. She lives in a [facility] trailer at her niece's house. Her niece has 5 dogs, 2 chicken, 3 cats and 1 ferret. She i s applying for disability and not currently working. Her niece owns a [employer] and she helps out as needed. She has no healthy siblings. One brother in [place] is an alcoholic. Older iris phan lives in a penitentiary due to vascular dementia and severe diabetes. Since my last vi sit with Nona, she was admitted to the hospital 01/14-01/26 for zoster infection, her AZA burgos s been held for the last 1 month due to ongoing issues with zoster lesions. She was initiall y treated with IV acyclovir from approx 01/10 through 01/16 then transitioned to valacyclovir 1g TID to complete an additional 7d then decreased to 500mg BID. Cord blood is only option a nd she consented to jeanida "[id number]: A Multicenter, Randomized, Phase III Registration Trial of Transplantation of NiCord, Ex Vivo Expanded, UCB-derived, Stem and Progenitor Ce lls, vs. Unmanipulated UCB for Patients With Hematological Malignancies". She was randomized to SOC arm. C3 aza started on 02/21-end 03/01 with local oncologist, Chidi MONTES Nona is feeling good today. She is eager to get started on transplant but also a little t imid. She has no complaints. Notes excellent energy. Great appetite. She has been very activ e living with her Niece who will be one of her 2 caregivers. She will stay in the [place] after transplant. Review of Systems Constitutional: Negative for chills, fever, malaise/fatigue and weight loss. HENT: Negative. Eyes: Negative. Respiratory: Negative. Cardiovascular: Negative. Gastrointestinal: Negative. Genitourinary: Negative. Musculoskeletal: Negative. Skin: Negative for rash. Neurological: Negative. Current Medication List Name Sig APIXABAN 2.5 MG TABLET Take 1 tablet by mouth two times daily. ESCITALOPRAM 10 MG TABLET Take 20 mg by mouth once daily. LETERMOVIR 480 MG TABLET Take 1 tablet by mouth once daily. ONDANSETRON HCL 8 MG TABLET Take 8 mg by mouth every twelve hours as needed. POSACONAZOLE 100 MG TABLET,DELAYED RELEASE Take 3 tablets by mouth two times daily. POTASSIUM CHLORIDE ER 20 MEQ TABLET,EXTENDED RELEASE(PART/CRYST) Take 1 tablet by mouth onc e daily. TRIAMTERENE 37.5 MG-HYDROCHLOROTHIAZIDE 25 MG CAPSULE Take 1 capsule by mouth once daily. VALACYCLOVIR 500 MG TABLET Take 1 tablet by mouth two times daily. Indications: viral infec tion prevention Past Medical History: Diagnosis Date Fibroid HTN (hypertension) Malignant neoplasm (HCC) Miscarriage Past Surgical History Procedure Laterality Date Hysterectomy 2008 Breast fibroid 1980 fibroid removal left breast [...] Last attempt to quit: 06/29/2004 Years since quittin.8 Smokeless tobacco: Never Used Substance and Sexual Activity Alcohol use: Not Currently Comment: very occasionally Drug use: Not on file Sexual activity: Not on file Lifestyle Physical activity: Days per week: Not on file Minutes per session: Not on file Stress: Not on file Relationships Social connections: Talks on phone: Not on file Gets together: Not on file Attends pentecostal service: Not on file Active member of club or organization: Not on file Attends meetings of clubs or organizations: Not on file Relationship status: Not on file Other Topics Concern Not on file Social History Narrative Lives with niece in [facility] PE: Vitals: 04/14/19 1227 BP: 133/76 BP Location: Left upper arm Patient Position: Sitting Pulse: 75 Temp: 36.7 C (98 F) TempSrc: Oral SpO2: 96% Weight: 68.9 kg (152 lb) PainSc: 0 - Zero Physical Exam Constitutional: [...] distension. There is no tendernes s. Musculoskeletal: General: No edema. Lymphadenopathy: She has no cervical adenopathy. Neurological: She is alert and oriented to person, place, and time. Skin: Skin is warm and dry. No rash noted. Psychiatric: Affect normal. Laboratory Lab Results Component Value Date WBC 7.06 04/14/2019 HB 13.2 04/14/2019 HCT 40.3 04/14/2019 PLT 270 04/14/2019 MCV 88.0 04/14/2019 RDW 44.6 04/14/2019 Lab Results Component Value Date BICARB 25 04/14/2019 TBILI 0.4 04/14/2019 CA 8.8 04/14/2019 CL 104 04/14/2019 CR 0.65 04/14/2019 GLU 145 (H) 04/14/2019 AP 106 (H) 04/14/2019 TP 7.0 04/14/2019 BUN 13 04/14/2019 ALB 3.5 04/14/2019 AST 13 04/14/2019 NA 139 04/14/2019 K 3.2 (L) 04/14/2019 ALT 17 04/14/2019 ECHO 03/10/19-EF 60-65% PFTs dated 03/10/19-FEV1 76, DLCO EKG-NSR CXR 03/22/19 clear BM biopsy 03/10/19 Normocellular marrow (50%) with: - Megakaryocytic dyspoiesis. - Megaloblastoid change in myeloids - Mild drythroid dysplasia present - No increase in blasts, <2%. - Mild anisocytosis. karyotype normal and NGS negative. 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 Patient Active Problem List Diagnosis MDS (myelodysplastic syndrome) (HCC) 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 The patient received 3 cycles of AZA with most recent marrow showing CR1. Her 3rd cycle was delayed 1 month due to recurrent zoster l esions. She had no available siblings or unrelated donor options. Transplant is recommended in CR1 for best snf survival. HCT-CI 2 (mild pulmonary). Consented to Gamida trial : S [id number]: A Multicenter, Randomized, Phase III Registration Trial of Transplantation of NiCord, Ex Vivo Expanded, UCB-derived, Stem and Progenitor Cells, vs. Unmanipulated UCB fo r Patients With Hematological Malignancies. Randomized to SOC arm. We reviewed the toxicity associated with chemotherapy and cord blood transplantation, risk of infection, organ toxici ty and risk of GVHD. Cord 1 has antibodies against HLA A25 MFI 2629. Since the MFI under 300 0, it was deemed safe to proceed. Nona is aware of the risk of graft failure and need for supportive care with 24 hours caregiver support. All questions were answered and she will c ontinue with planned transplant with SOC double cord. 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 -Completed 3 months of AC with apixiban. End date 04/14. -no need to restart medication for 4 days to complete end date of 04/19 Herpes Zoster She was initially treated with IV acyclovir from approx 01/10 through 01/16 then transitioned to valacyclovir 1g TID to complete an additional 7d then decreased to 500mg BID for 2 days, then back up to 1g TID for new lesions. -Continue valacyclovir at 500mg BID ([facility], [place] 2008) through day +365 and throughout p eriod of immunosuppression per ID Supportive Care: Transfusion parameters: -Transfuse PRBCs for HCT <21% if asymptomatic OR <24% if symptomatic -Transfuse PPH for platelet count <10,000 or sooner for s/s bleeding Infection prevention Fungal: Posaconazole Viral: valacyclovir rather than acyclovir per ID given zoster CMV: Letermovir (CMV+recipient, CMV-donor, cord blood SCT) PCP: pentam prior to d/c, Bactrim once plt>50 Toxo: Pt is toxo negative, no further testing required. documented in this encounter Plan of Treatment Not on filedocumented as of this encounter Visit Diagnoses + + | Diagnosis | + + | Acute deep vein thrombosis (DVT) of both upper extremities, unspecified vein (HCC) - | | Primary | + + | MDS (myelodysplastic syndrome) (HCC) Myelodysplastic syndrome, unspecified | + + | Stem cell transplant candidate | + + documented in this encounter
--- OUTSIDE RECORDS SUMMARY | ~2020-03-12 | XMS | Encounter Summary ---
Demographics + + + | Address | [address] | | | [place] [address] | + + + | Home Phone | | + + + | Preferred Language | Unknown | + + + | Marital Status | Single | + + + | Rastafari Affiliation | NRP | + + + | Race | White | + + + | Ethnic Group | Not or | + + + Author + + + | Author | [facility] | + + + | Organization | [facility] | + + + | Address | Unknown | + + + | Phone | Unavailable | + + + Support + + +---------+ + | Name | Relationship | Address | Phone | + + +---------+ + | Claudia Cota | ECON | Unknown | | + + +---------+ + Care Team Providers + +------+ + | Care Negative Stripper Name | Role | Phone | + +------+ + | Meredith Sanchez | PCP | | + +------+ + Encounter Details +--------+ + + + + | Date | Type | Department | Care Team | Description | +--------+ + + + + | 07/01/ | Pharmacy | Pharmacy @ [facility] | | | | 2019 | Visit | [address] | | | | | | Reji Callahan Mailcode: | | | | | | [facility] | | | | | | and Healing, | | | | | | [address] | | | | | | [place], [place] | | | | | | [address] | | | +--------+ + + + [...]
--- OUTSIDE RECORDS SUMMARY | ~2020-03-12 | XMS | Encounter Summary ---
Demographics + + + | Address | [address] | | | [place] [address] | + + + | Home Phone [...] Team Providers + +------+ + | Care Mine Engineering Supervisor Name | Role | Phone | + +------+ + | Meredith Sanchez | PCP | | + +------+ + Encounter Details +--------+--------+ + + + | Date | Type | Department | Care Team | Description | +--------+--------+ + + + | 07/18/ | Travel | | | | | [...]
--- OUTSIDE RECORDS SUMMARY | ~2020-03-12 | XMS | Encounter Summary ---
Demographics + + + | Address | [address] | | | [place] [address] | + + + | Home Phone [...] Team Providers + +------+ + | Care Regional Dedicated Truck Driver Name | Role | Phone | + +------+ + | Meredith Sanchez | PCP | | + +------+ + Encounter Details +--------+--------+ + + + | Date | Type | Department | Care Team | Description | +--------+--------+ + + + | 03/22/ | Travel | | | | | [...]
--- OUTSIDE RECORDS SUMMARY | ~2020-03-12 | XMS | Encounter Summary ---
Demographics + + + | Address | [address] | | | [place] [address] | + + + | Home Phone [...] Author + + + | Author | [facility] | + + + | Organization | [facility] | + + + | Address | Unknown | + + + | Phone | Unavailable | + + + Support + + +---------+ + | Name | Relationship | Address | Phone | + + +---------+ + | Claudia Cota | ECON | Unknown | | + + +---------+ + Care Team Providers + +------+ + | Care Wood Carving Lathe Operator Name | Role | Phone | + +------+ + | Meredith Sanchez | PCP | | + +------+ + Encounter Details +--------+ + + + + | Date | Type | Department | Care Team | Description | +--------+ + + + + | 02/08/ | MyChart | [facility] | | RE:MISU | | 2020 | Encounter | Clinics at [facility] | | Ophthalmology | | | | [facility] [address] | | | | | | [facility] | | | | | | Health and Healing, | | | | | | [address] | | | | | | [facility] [place] | | | | | | [address] | | | | | | [phone] | | | +--------+ + + + [...]
--- OUTSIDE RECORDS SUMMARY | ~2020-03-12 | XMS | Encounter Summary ---
Demographics + + + | Address | [address] | | | [place] [address] | + + + | Home Phone [...] Team Providers + +------+ + | Care Plastic Tool Maker Name | Role | Phone | + +------+ + | Meredith Sanchez | PCP | | + +------+ + Encounter Details +--------+ + + + + | Date | Type | Department | Care Team | Description | +--------+ + + + + | 03/15/ | Documentati | [facility] | Work, Social | | | 2019 | on | [facility] | | | | | | [facility] [address] | | | | | | [facility] | | | | | | Health and Healing, | | | | | | [address] | | | | | | [place], [place] | | | | | | [address] | | | | | | [phone] | | | +--------+ + + + [...] Telephone Encounter - Janee Bellamy MSW - 03/16/2019 4:50 PM PDTName:Nona Hopper Date: td : 1965 Called patient and discussed how she did in the transplant education class. She states that she thinks it went well and she is sitting down with her caregiver and niece to read the ed ucation booklet and see if they have questions. SETH offered to be available for a conference call with all of them to review the material and answer any questions. Patient will call me and let me know if they would like to do this. Plan/Intervention: Social work will plan to be available for support and assistance as need ed. KRIS FAULKNER, [facility] [address] Mailcode: [place] [phone] documented in this en counter Plan of Treatment Not on filedocumented as of this encounter Visit Diagnoses Not on filedocumented in this encounter"
--- OUTSIDE RECORDS SUMMARY | ~2020-03-12 | XMS | Encounter Summary ---
Demographics + + + | Address | [address] | | | [place] [address] | + + + | Home Phone | | + + + | Preferred Language | Unknown | + + + | Marital Status | Single | + + + | Jain Affiliation | NRP | + + + | Race | White | + + + | Ethnic Group | Not or | + + + Author + + + | Author | [facility] | + + + | Organization | [facility] | + + + | Address | Unknown | + + + | Phone | Unavailable | + + + Support + + +---------+ + | Name | Relationship | Address | Phone | + + +---------+ + | Claudia Cota | ECON | Unknown | | + + +---------+ + Care Team Providers + +------+ + | Care Cook Chef Name | Role | Phone | + +------+ + | Meredith Sanchez | PCP | | + +------+ + Reason for Visit + + + | Reason | Comments | + + + | Consultation | | + + + Consultation (Routine) [...] | | stic | [address] | Celestine Chase | | | | | syndrome) | Melly Lujan | Alex | | | | | (HCC) | [place], [place] | Stephany, [facility] | | | | | Procedures | [address] | floor | | | | | CONSULT TO | Phone: | [place], [place] | | | | | RADIATION | [phone] | [address] | | | | | ONCOLOGY | Fax: | Phone: | | | | | | [phone] | [phone] | | | | | | | Fax: | | | | | | | [phone] | +--------+--------+ + + + + Encounter Details +--------+---------+ + + + | Date | Type | Department | Care Team | Description | +--------+---------+ + + + | 03/22/ | Office | Radiation Oncology | Mello Archibald, | 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 | at [facility] [address] | MD [address]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) | | | | Celestine Johnson | [address] | (Primary Dx) | | | | Stephany, 4th floor | [place], [place] | | | | | [place], [place] | [address] | | | | | [address] | [phone] | | | | | [phone] | | | +--------+---------+ + + + [...] + + + | Blood Pressure | 119/73 | 03/22/2019 12:51 PM | | | | | PDT | | + + + + + | Pulse | 80 | 03/22/2019 12:51 PM | | | | | PDT | | + + + + + | Temperature | 36.9 C (98.4 F) | 03/22/2019 12:51 PM | | | | | PDT | | + + + + + | Respiratory Rate | 14 | 03/22/2019 12:51 PM | | | | | PDT | | + + + + + | Oxygen Saturation | 99% | 03/22/2019 12:51 PM | | | | | PDT | | + + + + + | Inhaled Oxygen | - | - | | | Concentration | | | | + + + + + | Weight | 67.2 kg (148 lb 1.6 | 03/22/2019 12:51 PM | | | | oz) | PDT | | + + + + + | Height | - | - | | + + + + + | Body Mass Index | 27.09 | 01/14/2019 3:08 PM | | | [...] documented as of this encounter Progress Notes Maikel Ko MA - 03/22/2019 1:00 PM PDTPt here for a consultation visit with Dr. Yuli church regarding radiation treatment options. Pt alert, oriented, and ambulatory with a rica payal gait. Pt oriented to clinic and reviewed the Introduction to the [facility] Radiation Oncology Departme nt pt information handout. Pt verbalizes understanding. Pt lives in [place], [place]. 12 minutes was spent in face to face discussion and teaching with the patient. 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 PMH that includes uterine fibroids and fibroid removal from the left breast. Her hematogical history dates back to 2015 when she noted progressive fatigue. 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 She was working 6 days per week and thought she was working too hard. She left her job i n August 2017 to give herself some time to feel better. She had been to various physicians in [place] for fatigue without answers. In December 2017, she developed fevers up to 104. She was tested for lyme disease, rheumatol ogical conditions which were all negative. She began to notice that her counts were dropping . She relocated to [facility] from [place] to live with her niece in 06/2018. She saw a local PA in [facility] 07/2018 Meredith Sanchez who did further testing. Labs on 10/07/18 showed normal chemistries, Bilirubin 1.4, hepatitis negative, ESR elevat ed at 174 with RA, RIOS C3/C4 negative. CBC showed WBC 2.4, Hb 10.8, Plt 166K, ANC 1529. She was referred to Dr. Sequeira (medical oncology) on 10/29. Bone marrow biopsy was pe rformed on 11/05 showing hypercellular marrow (70%) with 18% by morphology and 26% on flow. M ild erythroid hyperplasia and megakaryocytic atypia. Blast immunophenotype was positive for CD33, CD45 dim, CD34, CD15, CD117, CD 11c, MPO. The final read was consistent with MDS-EB2 v s evolving AML. Cytogenetics were normal. MDS and [...] and 1 ferret. She is applying for disability and not currently working. Her niece owns a [employer] and she helps out as needed. She has no healthy siblings. One brother in [place] is an alcoholic. Older [facility] due to vascular dementia and severe diabetes. She was admitted to the hospital 01/14-01/26 for zoster infection, her AZA has been held f or the last 1 month due to ongoing issues with zoster lesions. She was initially treated wit h IV acyclovir from approx 01/10 through 01/16 then transitioned to valacyclovir 1g TID to com plete an additional 7d then decreased to 500mg BID. Cord blood is only option and she consen martha to kyle "[id number]: A Multicenter, Randomized, Phase III Registration Trial of Tra nsplantation of NiCord, Ex Vivo Expanded, UCB-derived, Stem and Progenitor Cells, vs. Unma nipulated UCB for Patients With Hematological Malignancies". She presents today to discuss radiotherapy options, accompanied by her friend. She notes that "Antibodies were found in the cord blood" so her admission date has been pus hed back to around 04/07/19. Consult for TBI Consult Full or Mini? Full Diagnosis: MDS Total TBI Dose: 1200 cGy Number of Fractions (1, 2, or 8): 8 Specific Date(s) of TBI treatment: 03/28, 03/29, 03/30, 03/31 Transplant Day 0: 04/01 Prep Regimen: Fl/Cy/TBI from Kyle Protocol On Study or Standard Treatment Plan? On Study If on study, list study name/#: Kyle (email protocol to Radiation Oncology Department) Patient status at time of TBI (Inpatient/Outpatient): Inpatient CARE TEAM: Medical Oncologist - Dr. De La Torre PAST MEDICAL HISTORY: Past Medical History: Diagnosis Date Fibroid HTN (hypertension) Miscarriage Left breast fibroid s/p lumpectomy PAST SURGICAL HISTORY: Past Surgical History Procedure Laterality Date Hysterectomy 2007 Breast fibroid 1980 fibroid removal left breast FAMILY HISTORY: Family history includes Alcohol abuse in her brother and father; Brain cancer in her aunt a nd brother; Dementia in her sister; Diabetes in her sister; Heart Attack in her mother; Live r Disease in her father; Melanoma in her father; and Stroke in her sister. Brother had glioblastoma, at age 55 Maternal aunt had glioblastoma, in her 50s Sister of alcoholism Brother with vascular dementia SOCIAL HISTORY: Social History Socioeconomic History Marital status: Single [...] Last attempt to quit: 06/29/2004 Years since quittin.7 Smokeless tobacco: Never Used Substance and Sexual Activity Alcohol use: Not Currently Comment: very occasionally Drug use: Not on file Sexual activity: Not on file Lifestyle Physical activity: Days per week: Not on file Minutes per session: Not on file Stress: Not on file Relationships Social connections: Talks on phone: Not on file Gets together: Not on file Attends spiritism service: Not on file Active member of club or organization: Not on file Attends meetings of clubs or organizations: Not on file Relationship status: Not on file Other Topics Concern Not on file Social History Narrative Lives with niece in [place] Patient lives in [place], which [place] from [facility]. Grew up in [place], spent a whil e in [place]. 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 , Disp: , Rfl: ondansetron 8 mg oral tablet, Take 8 mg by mouth every twelve hours as needed., Disp: , Rfl : potassium chloride SR 20 mEq oral tablet,ER particles/crystals, Take 1 tablet by mouth once daily., Disp: 30 tablet, Rfl: 2 triamterene-hydrochlorothiazide 37.5-25 mg oral capsule, Take 1 capsule by mouth once daily ., Disp: , Rfl: valACYclovir 500 mg oral tablet, Take 1 tablet by mouth two times daily. Indications: viral infection prevention, Disp: 60 tablet, Rfl: 11 voriconazole 200 mg oral tablet, TAKE 1 TABLET BY MOUTH TWICE DAILY (COMBINE WITH 50 MG TAB LET FOR TOTAL DOSE OF 250MG TWICE DAILY), Disp: , Rfl: 1 REVIEW OF SYSTEMS: I personally reviewed the [facility] Radiation Oncology Questionnaire with the patient on paper. It's positive for fever, chills, weight loss (20lbs over the past year), easy bruising, and new rashes. No prior history of radiation therapy. Remainder of ROS is otherwise negative except as reported in HPI, PMH and PSH. PHYSICAL EXAM: Vitals: BP 119/73 (BP Location: Right upper arm, Patient Position: Sitting) | Pulse 80 | Temp 36.9 C (98.4 F) (Oral) | Resp 14 | Wt 67.2 kg (148 lb 1.6 oz) | SpO2 99% | BMI 27.09 kg/m | BSA 1.71 m Pain Score: ECO= Restricted in physically strenuous activity but ambulatory and able to carry out wo rk of a light or sedentary nature, e.g., light house work, office work General: NCAT, in no acute distress, breathing comfortably on room air ENT: No obvious cervical LAD, no visible mucosal abnormalities Pulm: unlabored respirations, speaking in full sentences CV: extremities well perfused Abd: Non-distended Neuro: non-focal Extremities: No distal extremity swelling PATHOLOGY: LEUKEMIA/LYMPHOMA MARKERS - BONE MARROW: [id number] 03/10/2019 Component Resulting Agency Final Pathologic Diagnosis Bone marrow aspirate, clot section, core biopsy and peripheral blood: - Normocellular marrow (50%) with: - Megakaryocytic dyspoiesis. - Megaloblastoid change in myeloids - Mild drythroid dysplasia present - No increase in blasts, <2%. - Mild anisocytosis. Note: The mild dyspoietic changes present may represent treatment effect or residual myelod ysplasia. Correlation with concurrent cytogenetic/FISH and molecular studies is recommended. RECENT LABS: Lab Results Component Value Date WBC 6.16 03/14/2019 WBC 5.65 03/10/2019 WBC 8.31 02/17/2019 RBC 4.62 03/14/2019 RBC 4.44 03/10/2019 RBC 4.23 02/17/2019 HB 13.5 03/14/2019 HB 13.3 03/10/2019 HB 12.7 02/17/2019 HCT 40.9 03/14/2019 HCT 39.9 03/10/2019 HCT 39.2 02/17/2019 PLT 329 03/14/2019 PLT 306 03/10/2019 PLT 348 02/17/2019 LYMPHPERC 30.8 03/14/2019 Lab Results Component Value Date NA 141 03/14/2019 K 3.3 03/14/2019 CL 105 03/14/2019 BICARB 27 03/14/2019 BUN 10 03/14/2019 CR 0.61 03/14/2019 GLU 86 03/14/2019 CA 9.6 03/14/2019 AST 20 03/14/2019 ALT 21 03/14/2019 AP 104 03/14/2019 TBILI 0.6 03/14/2019 TP 7.4 03/14/2019 ALB 4.0 03/14/2019 ANIONGAP 9 03/14/2019 ANIONALBCOR 9 03/14/2019 DIAGNOSIS: Nona Hopper is a 53 year old female with high risk MDS underoing stem ce ll transplant on the Gamida clinical trial KARNOFSKY SCORE: 90% Able to carry on normal activity, minor signs or symptoms of active d isease RECOMMENDATIONS: We will provide TBI in preparation of her related BM transplant. Acute adverse effects of R T such as parotitis, oral mucositis, nausea, fevers and abdominal pain were explained to the patient. We also had a discussion about skilled nursing toxicity including cataracts, xerostomia leading to caries, hypothyroidism, pneumonitis leading to pulmonary fibrosis, cardiotoxicity , hepatotoxicity secondary to veno-occlusive disease presenting as ascites, liver pain and j aundice. Other oil heaterman effects discussed were permanent infertility and risk of secondary malignancies. We will treat her to 12 Gy in 8 fractions (150 cGy per fraction). Radiation will be done tw ice daily to finish the treatment course in 4 days. He will have lung blocks for the first f our fractions to reduce dose to the lungs. Body measurements were taken for radiation planning. Chest X-ray with AP and PA was complet ed for lung block planning. She has a tentative start date of 04/11/19. "Full or Mini? Full Diagnosis: MDS Total TBI Dose: 1200 cGy Number of Fractions (1, 2, or 8): 8 Specific Date(s) of TBI treatment: 03/28, 03/29, 03/30, 03/31 Transplant Day 0: 04/01 Prep Regimen: Fl/Cy/TBI from Gamida Protocol" We will follow up with Dr. De La Torre regarding the plan for TBI (full vs mini) if she will not be receiving treatment on the Gamida trial. This patient was seen, examined and discussed with my attending, Dr. Mello Archibald, who agrees with this assessment and plan. Thank you for the opportunity to participate in the care of this pleasant patient. Please contact us should you have any questions or concerns. Deniz Mtz MD RADIATION ONCOLOGY AT [address] [address] CC: Sejal De La Torre DO Associated attestation - Mello Archibald MD - 03/29/2019 7:53 AM PDTI saw and evaluated Ms. Hopper with Dr. Mtz and agree with his assessment and plan. Mello Archibald MD [facility] Plan of Treatment Not on filedocumented as of this encounter Results X-RAY CHEST 2 VIEW [...] necessary, edited the report. I agree with [facility] report as now presented. | | | |Final signature: Marcela Mcmillan MD 03/22/2019 2:41 PM | |Preliminary: Marcela Mcmillan MD | |Dictation initiated: Marcela Mcmillan MD 03/22/2019 2:40 PM | + + + +---------+ + + | Performing | Address | City/State/Zipcode | Phone Number | | Organization | | | | + +---------+ + + | [facility] | | | | | VOICE RECOGNITION 2 | | | | + +---------+ + + documented in this encounter Visit Diagnoses + + | Diagnosis | + + | MDS (myelodysplastic syndrome) (HCC) - Primary Myelodysplastic syndrome, unspecified | + + documented in this encounter
--- OUTSIDE RECORDS SUMMARY | ~2020-03-12 | XMS | Encounter Summary ---
Demographics + + + | Address | [address] | | | [place] [address] | + + + | Home Phone | | + + + | Preferred Language | Unknown | + + + | Marital Status | Single | + + + | Uatsdin Affiliation | NRP | + + + | Race | White | + + + | Ethnic Group | Not or | + + + Author + + + | Author | [facility] | + + + | Organization | [facility] | + + + | Address | Unknown | + + + | Phone | Unavailable | + + + Support + + +---------+ + | Name | Relationship | Address | Phone | + + +---------+ + | Claudia Cota | ECON | Unknown | | + + +---------+ + Care Team Providers + +------+ + | Care Civil Engineering Professional Name | Role | Phone | + +------+ + | Meredith Sanchez | PCP | | + +------+ + Encounter Details +--------+ + + + + | Date | Type | Department | Care Team | Description | +--------+ + + + + | 07/07/ | Procedure | Diagnostic Imaging | | | | 2020 | Pass | Services at [facility] | | | | | | [address] | | | | | | Melly Lujan [place] | | | | | | [facility], [address] [place] [address] | | | | | | [place], [place] | | | | | | [address] | | | | | | [phone] | | | +--------+ + + + [...]
--- OUTSIDE RECORDS SUMMARY | ~2020-03-12 | XMS | Encounter Summary ---
Demographics + + + | Address | [address] | | | [place] [address] | + + + | Home Phone [...] Team Providers + +------+ + | Care Brothel Keeper Name | Role | Phone | + +------+ + | Meredith Sanchez | PCP | | + +------+ + Reason for Visit + + + | Reason | Comments | + + + | Lab Draw | | + + + Other (Routine) +--------+--------+ + + + + | Status | Reason | Specialty | Diagnoses / | Referred By | Referred To | | | | | Procedures | Contact | Contact | +--------+--------+ + + + + | Closed | | Hematology | Diagnoses | Wil | [employer] | | | | 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 | Sejal Meadows, | [facility] [address] | | | | | (myelodyspla | DO [address] | | | | | stic | Stephanie Valverde | [facility] | | | | | syndrome) | [facility] | [facility] and | | | | | (HCC) | [facility] [place] | Healing, | | | | | Procedures | [address] | [address] | | | | | [place] | Phone: | [place], [place] | | | | | OFFICE/OUTPT | [phone] | [address] | | | | | | Fax: | Phone: | | | | | VISIT,EST,LE | [phone] | [phone] | | | | | VL IV CA | | Fax: | | | | | EST PATIENT | | [phone] | | | | | LEVEL V | | | +--------+--------+ + + + + Encounter Details +--------+ + + + + | Date | Type | Department | Care Team | Description | +--------+ + + + + | 07/14/ | Clinical | Laboratory at [facility] | | Lab Draw | | 2019 | Support | [address] | | | | | Staff | [facility] | | | | | | and Healing, | | | | | | [address] | | | | | | [place], [place] | | | | | | [address] | | | | | | [phone] | | | +--------+ + + + [...] encounter Progress Notes Marj Reyes RN - 07/14/2019 8:00 AM PSTEdong accessed per protocol. Good blood retu rn noted. Appropriate waste discarded. Labs drawn and sent, including T&S. Groshong pulse flushed with 20 mL NS. Immunosuppressant Patient reports holding their dose of tacrolimus today. They report taking 1 mg AM and 1 mg PM. This matches the medication list. Confirmed with patient and caregiver that we have the correct contact number for their medication change calls. Marj Reyes RN documented in this enco unter Plan of Treatment Not on filedocumented as of this encounter Procedures + +--------+ + + + | Procedure Name | Priori | Date/Time | Associated Diagnosis | Comments | | | ty | | | | + +--------+ + + + | [facility] - MAGNESIUM, | Routin | 07/14/2019 | S/P cord blood | Results for this | | PLASMA | e | 8:04 AM | transplantation MDS | procedure are in the | | | | PST | (myelodysplastic | results section. | | | |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) | | + +--------+ + + + | [facility] - PHOSPHORUS, | Routin | 07/14/2019 | S/P cord blood | Results for this | | PLASMA | e | 8:04 AM | transplantation MDS | procedure are in the | | | | PST | (myelodysplastic | results section. | | | |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) | | + +--------+ + + + | [facility] - LDH TOTAL, | Routin | 07/14/2019 | S/P cord blood | Results for this | | PLASMA | e | 8:04 AM | transplantation MDS | procedure are in the | | | | PST | (myelodysplastic | results section. | | | |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) | | + +--------+ + + + | CBC AND AUTO DIFF | Routin | 07/14/2019 | S/P cord blood | Results for this | | | e | 8:04 AM | transplantation MDS | procedure are in the | | | | PST | (myelodysplastic | results section. | | | |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) | | + +--------+ + + + | VERITO-SEVILLA VIRUS | Routin | 07/14/2019 | S/P cord blood | Results for this | | PCR, PLASMA | e | 8:04 AM | transplantation | procedure are in the | | | | PST | | results section. | + +--------+ + + + | [facility] - COMPLETE | Routin | 07/14/2019 | S/P cord blood | Results for this | | METABOLIC SET | e | 8:04 AM | transplantation MDS | procedure are in the | | | | PST | (myelodysplastic | results section. | | | | | syndrome) ([facility]) | | + +--------+ + + + | [facility] CBC W | Routin | 07/14/2019 | S/P cord blood | Results for this | | DIFFERENTIAL | e | 8:04 AM | transplantation MDS | procedure are in the | | | | PST | (myelodysplastic | results section. | | | | | syndrome) ([facility]) | | + +--------+ + + + | CMV PCR | Routin | 07/14/2019 | S/P cord blood | Results for this | | QUANTITATION, PLASMA | e | 8:04 AM | transplantation MDS | procedure are in the | | | | PST | (myelodysplastic | results section. | | | | | syndrome) ([facility]) | | + +--------+ + + + | TACROLIMUS, WHOLE | Routin | 07/14/2019 | S/P cord blood | Results for this | | BLOOD | e | 8:04 AM | transplantation MDS | procedure are in the | | | | PST | (myelodysplastic | results section. | | | | | syndrome) ([facility]) | | + +--------+ + + + | ANTIBODY SCREEN | Routin | 07/14/2019 | MDS | Results for this | | | e | 8:04 AM | (myelodysplastic | procedure are in the | | | | PST | syndrome) ([facility]) | results section. | + +--------+ + + + | TYPE AND SCREEN | Routin | 07/14/2019 | MDS | Results for this | | | e | 8:04 AM | (myelodysplastic | procedure are in the | | | | PST | syndrome) ([facility]) | results section. | + +--------+ + + + | ABO & RH TYPE | Routin | 07/14/2019 | MDS | Results for this | | | e | 8:04 AM | (myelodysplastic | procedure are in the | | | | PST | syndrome) ([facility]) | results section. | + +--------+ + + + | HUMAN HERPES VIRUS 6 | Routin | 07/14/2019 | S/P cord blood | Results for this | | PCR (PLASMA OR CSF) | e | 8:04 AM | transplantation | procedure are in the | | | | PST | | results section. | + +--------+ + + + documented in this encounter Results ANTIBODY SCREEN (07/14/2019 8:04 AM PST) + + + + + [...] | + + + + + | [facility] | [address] | [place] [address] | | | SERVICES, | [address] | | | | TRANSFUSION MEDICINE | | | | + + + + + ABO & RH TYPE (07/14/2019 8:04 AM PST) + + + + + [...] + + + + + | [facility] | [address] | [place] [address] | | | SERVICES, | [address] | | | | TRANSFUSION MEDICINE | | | | + + + + + CBC AND AUTO DIFF (07/14/2019 8:04 AM PST) + + + + + + | Component | Value | Ref Range | Performed | Pathologist | | | | | At | Signature | + + + + + + | WHITE CELL | 5.13 | 3.50 - 10.80 | [facility] | | | COUNT | | K/cu mm | LABORATORY | | | | | | SERVICES, | | | | | | [facility] | | | | | | HEALTH + | | | | | | HEALING | | + + + + + + | RED CELL | 3.03 (L) | 4.00 - 5.20 | [facility] | | | COUNT | | M/cu mm | LABORATORY | | | | | | SERVICES, | | | | | | [facility] + | | | | | | HEALING | | + + + + + + | HEMOGLOBIN | 8.7 (L) | 12.0 - 16.0 | [facility] | | | | | g/dL | LABORATORY | | | | | | SERVICES, | | | | | | [facility] | | [facility] + | | | | | | HEALING | | + + + + + + | HEMATOCRIT | 28.4 (L) | 36.0 - 46.0 % | [...] + + + + | MCHC | 30.6 (L) | 32.0 - 36.0 | [facility] | | | | | g/dL | LABORATORY | | | | | | SERVICES, | | | | | | [facility] | [facility] + | | | | | | HEALING | | + + + + + + | RDW SD | 62.7 (H) | 35.1 - 46.3 fL | [facility] | | | | | | LABORATORY | | | | | | SERVICES, | | | | | | [facility] | | [facility] + | | | | | | HEALING | | + + + + + + | PLATELET | 162 | 150 - 400 K/cu | [facility] | | | COUNT | | mm | LABORATORY | | | | | | SERVICES, | | | | | | [facility] | | [facility] + | | | | | | HEALING | | + + + + + + | MPV | Comment: Not measured | | [facility] | | | | [...] + + + + | NEUTROPHIL | 60.4 | 50.0 - 70.0 % | [facility] | | | % | | | LABORATORY | | | | | | SERVICES, | | | | | | [facility] | | [facility] + | | | | | | HEALING | | + + + + + + | LYMPHOCYTE | 26.9 | 18.0 - 42.0 % | [facility] | | | % | | | LABORATORY | | | | | | SERVICES, | | | | | | [facility] | | | | [facility] + | | | | | | HEALING | | + + + + + + | MONOCYTE % | 10.9 (H) | 3.5 - 9.0 % | [facility] | | | | | | LABORATORY | | | | | | SERVICES, | | | | | | [facility] | | | [facility] + | | | | | | HEALING | | + + + + + + | EOS % | 0.4 (L) | 1.0 - 3.0 % | [facility] [...] + + + + | IG% | 1.4 (H) | 0.0 - 1.0 % | [facility] | | | | | | LABORATORY | | | | | | SERVICES, | | | | | | [facility] | | | [facility] + | | | | | | HEALING | | + + + + + + | NEUTROPHIL | 3.10 | 1.80 - 7.70 | [facility] | | | # | | K/cu mm | LABORATORY | | | | | | SERVICES, | | | | | | [facility] | | | | | | [facility] + | | | | | | HEALING | | + + + + + + | NEUTROPHIL | 3.10Comment: Preliminary | 1.80 - 7.70 | [facility] [...] + + + + | LYMPHOCYTE | 1.38 | 1.00 - 4.80 | [facility] | [...] + + + | EOS # | 0.02 | 0.00 - 0.50 | [facility] | [...] + + + + | IG# | 0.07 | 0.00 - 0.10 | [facility] | [...] + | [facility] | [address] | [place] [address] | | | SERVICES, [place] [facility] | | | | | HEALTH + HEALING | | | | + + + + + [facility] - COMPLETE METABOLIC SET (07/14/2019 8:04 AM PST) + +---------+ + + + | Component | Value | Ref Range | Performed | Pathologist | | | | | At | Signature | + +---------+ + + + | GLUCOSE, | 124 (H) | 70 - 99 mg/dL | [...] +---------+ + + + | CREATININE | 0.91 | 0.60 - 1.10 | [facility] | [...] | | | LABORATORY | | | STATELESS | | | SERVICES, | | | [...] +---------+ + + + | SODIUM, | 141 | 136 - 145 | [facility] | | | PLASMA | | mmol/L | LABORATORY | | | (LAB) | | | SERVICES, | | | | | | [facility] | | | | | | [facility] + | | | | | | HEALING | | + +---------+ + + + | POTASSIUM, | 2.9 (L) | 3.4 - 5.0 | [facility] | | | PLASMA | | mmol/L | LABORATORY | | | (LAB) | | | SERVICES, | | | | | | [facility] | | | | | | [facility] + | | | | | | HEALING | | + +---------+ + + + | CHLORIDE, | 104 | 97 - 108 mmol/L | [facility] [...] +---------+ + + + | CALCIUM, | 8.5 [...] +---------+ + + + | TOTAL | 5.9 (L) | 6.4 - 8.2 g/dL | [facility] | | | PROTEIN, | | | LABORATORY | | | PLASMA | | | SERVICES, | | | (LAB) | | | [facility] | | | | | | [facility] + | | | | | | HEALING | | + +---------+ + + + | ALBUMIN, | 3.1 [...] + + + | ALK PHOS | 76 | 42 - 98 U/L | [facility] | | | | | | LABORATORY | | | | | | SERVICES, | | | | | | [facility] | | | | | | [facility] + | | | | | | HEALING | | + +---------+ + + + | AST(SGOT) | 16 | <=41 U/L | [facility] | | [...] +---------+ + + + | ANION | 12 [...] +---------+ + + + | BUN/CREATIN | 15 | 8 - 25 | [facility] | | | INE RATIO | | | LABORATORY | | | | | | SERVICES, | | | | | | [facility] | | | | | | HE[facility] + | | | | | | HEALING | | + +---------+ + + + | GLOBULIN | 2.8 | 2.3 - 3.5 gm/dL | [facility] | | | LVL | | | LABORATORY | | | | | | SERVICES, | | | | | | [facility] | | | | | | HEALTH + | | | | | | HEALING | | + +---------+ + + + | ALBUMIN/BURTON | 1.1 | 0.9 - 2.0 | [facility] | | | BULIN RATIO | | | LABORATORY | | | | | | SERVICES, | | | | | | [place] [facility] | | | | | | [...] + + + + + | [facility] | [address] | [place] [address] | | | SERVICES, [place] [facility] | | | | | HEALTH + HEALING | | | | + + + + + [facility] - LDH TOTAL, PLASMA (07/14/2019 8:04 AM PST) + +---------+ + + + [...] + + + + + | [facility] | [address] | [place] [address] | | | [facility] FOR | | | | | HEALTH + HEALING | | | | + + + + + [facility] - MAGNESIUM, PLASMA (07/14/2019 8:04 AM PST) + +---------+ + + + [...] + | [facility] | [address] | [place] [address] | | | SERVICES, [facility] | | | | | HEALTH + HEALING | | | | + + + + + [facility] - PHOSPHORUS, PLASMA (07/14/2019 8:04 AM PST) + +-------+ + + + [...] + + + + + | [facility] | [address] | [place] [address] | | | [facility] | | | | | HEALTH + HEALING | | | | + + + + + CMV PCR QUANTITATION, PLASMA (07/14/2019 8:04 AM PST) + + + + + [...] 2 fold may not reflect true | [facility] | | biological changes and must [...] | | | characteristics determined by the [facility] | | | Molecular Diagnostic Center. It has not been cleared or approved by | | | the Food and Drug Administration. FDA approval is not required for | | | clinical use of this test, and therefore validation was done as | | | required under the requirements of the Clinical Laboratory Improvement | | | Act of 1988. The [facility] | | | Diagnostic Center is a fully licensed and/or accredited clinical | | | laboratory under GAURAV, ARMANDO, and the [facility]. | | + + + + + + + + | Performing | Address | City/State/Zipcode | Phone Number | | Organization | | | | + + + + + | [facility] | [address] | [place] [address] | | | DIAGNOSTIC | [address] | | | | LABORATORIES | | | | + + + + + TACROLIMUS, WHOLE BLOOD (07/14/2019 8:04 AM PST) + +-------+ + + + | Component | Value | Ref Range | Performed | Pathologist | | | | | At | Signature | + +-------+ + + + | TACROLIMUS | 11.0 | 5.0 - 15.0 | [facility] | [...] | Test performed by immunoassay using Hyatt Buttonhole Facer i2000. . | [facility] | | Samples [...] | + + + + + | [facility] | [address] | [place] [address] | | | SERVICES SPECIAL | [address] | | | | IMM + COAG | | | | + + + + + VERITO-SEVILLA VIRUS PCR, PLASMA (07/14/2019 8:04 AM PST) + + + + + [...] we have completed a quantitative polymerase | [facility] | | chain reaction (PCR) based [...] | | performance characteristics determined by the [facility] | | | [facility]ostics Center. It has not been cleared or approved by the Food | | | and Drug Administration. FDA approval is not required for clinical | | | use of this test, and therefore validation was done as required under | | | the requirements of the Clinical Laboratory Improvement Act of 1988. | | | The [facility] is a fully licensed and/or accredited clinical laboratory | | | under CLIA, CAP, and the [facility]. References: 1) | | | Phong et al. Laboratory assays for EBV-related disease. J [facility] | | | Diagn 10: 279-292, 2007. 2) Khalida et al. EBV viral load and | | | disease prediction in a large cohort of allogeneic stem cell | | | transplant recipients. Clin Infect Dis 45: 1305-92006. 3) | | | Manjula SD, Holly T, Bailee P, Isaura SK, Miguel A. Herpesvirus | | | prevalence and viral load in healthy blood donors by quantitative | | | real-time polymerase chain reaction. Transfusion 2008;48:6739-6470. | | | 4) Bassam SULEIMAN, Genny CASAS, Félix I, van keshia Viktorj W, et al. | | | Frequent monitoring of Verito-Sevilla virus DNA load in unfractionated | | | whole blood is essential for early detection of posttransplant | | | lymphoproliferative disease in high-risk patients. Blood | | | 2001;97(5):5680-6798. | | + + + + + + + + | Performing | Address | City/State/Zipcode | Phone Number | | Organization | | | | + + + + + | [facility] | [address] | [place] [address] | | | DIAGNOSTIC | [address] | | | | LABORATORIES | | | | + + + + + HUMAN HERPES VIRUS 6 PCR (PLASMA OR CSF) (07/14/2019 8:04 AM PST) + + + + + + | Component | Value | Ref Range | Performed | Pathologist | | | | | At | Signature | + + + + + + | SOURCE, INF | Blood | | [facility] | | | SER/PCR | | | [facility] | | | | | | P[facility] - [facility] | [...] PTH - [facility] | | | | [place], [place] [address] | | | | | | [phone] | | | | | | Zefreino montelongo MD, | | | | | [...] A: | | | | | | [employer] | | | | + + + [...] | Specimen | + + | Blood | + + + + + + + | Performing | Address | City/State/Zipcode | Phone Number | | Organization | | | | + + + + + | [facility] | [address] | [place], [place] | | | UNIV [facility] | | [address] | | + + + + + documented in this encounter Visit Diagnoses + + | Diagnosis | + + | S/P cord blood transplantation Other specified organ or tissue replaced by transplant | + + | MDS (myelodysplastic syndrome) (HCC) Myelodysplastic syndrome, unspecified | + + documented in this encounter"
--- OUTSIDE RECORDS SUMMARY | ~2020-03-12 | XMS | Encounter Summary ---
Demographics + + + | Address | [address] | | | [place] [address] | + + + | Home Phone [...] Team Providers + +------+ + | Care [employer]ke L[employer] Name | Role | Phone | + +------+ + | Meredith Sanchez | PCP | | + +------+ + Encounter Details +--------+ + + + + | Date | Type | Department | Care Team | Description | +--------+ + + + + | 02/16/ | Pharmacy | Specialty Pharmacy | | | | 2019 | Visit | Services [address] | | | | | | [address] | | | | | | [place], [place] | | | | | | [address] | | | | | | [phone] | | | +--------+ + + + [...]
--- OUTSIDE RECORDS SUMMARY | ~2020-03-12 | XMS | Encounter Summary ---
Demographics + + + | Address | [address] | | | [place] [address] | + + + | Home Phone | | + + + | Preferred Language | Unknown | + + + | Marital Status | Single | + + + | Yarsani Affiliation | NRP | + + + [...] Team Providers + +------+ + | Care Fruit Or Nut Picker Name | Role | Phone | + +------+ + | Meredith Sanchez | PCP | | + +------+ + Reason for Visit + + + | Reason | Comments | + + + | Lab Draw | Groshong | + + + Other (Routine) +--------+--------+ + + + + | Status | Reason | Specialty | Diagnoses / | Referred By | Referred To | | | | | Procedures | Contact | Contact | +--------+--------+ + + + + | Closed | | Hematology | Diagnoses | Wil | lu Faculty | | | | 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 | Sejal Meadows, | [facility] [address] | | | | | (myelodyspla | DO [address] | | | | | stic | [place] | Center for | | | | | syndrome) | [address] | Health and | | | | | (HCC) | [place], [place] | Healing, | | | | | Procedures | [address] | [address] | | | | | [place] | Phone: | [place], [place] | | | | | OFFICE/OUTPT | [phone] | [phone] | | | | | | Fax: | Phone: | | | | | VISIT,EST,LE | [phone] | [phone] | | | | | VL IV DE | | Fax: | | | | | EST PATIENT | | [phone] | | | | | LEVEL V | | | +--------+--------+ + + + + Encounter Details +--------+ + + + + | Date | Type | Department | Care Team | Description | +--------+ + + + + | 07/25/ | Hospital | [facility] | Rn, Fast Track | | | 2019 | Encounter | Clinics at S | [address] | | | | | [address] | [facility] [place] [address] | | | | | [address] [facility] for | | | | | | Health and [facility], | | | | | | [address] | | | | | | [place], [place] | | | | | | [address] | | | | | | [phone] | | | +--------+ + + + [...] + + + | Blood Pressure | 151/77 | 07/25/2019 3:00 PM | | | | | PST | | + + + + + | Pulse | 88 | 07/25/2019 3:00 PM | | | | | PST | | + + + + + | Temperature | 36.6 C (97.9 F) | 07/25/2019 3:00 PM | | | | | PST | | + + + + + | Respiratory Rate | 16 | 07/25/2019 3:00 PM | | | | | PST | | + + + + + | Oxygen Saturation | 99% | 07/25/2019 3:00 PM | | | | | PST | | + + + + + | Inhaled Oxygen | - | - | | | Concentration | | | | + + + + + | Weight | 55.9 kg (123 lb 3.8 | 07/25/2019 3:00 PM | | | | oz) | PST | | + + + + + | Height | - | - | | + + + + + | Body Mass Index | 22.74 | 07/08/2019 4:32 PM | | | [...] documented as of this encounter Progress Notes Dionne Barreto RN - 07/25/2019 2:50 PM PSTPatient here for labs prior to infusion appo intmentNicole Rios accessed per protocol. Good blood return noted. Appropriate waste discarded. La bs drawn and sent. Gabriel pulse flushed with 20 mL NS. Immunosuppressant Patient reports holding their dose of tacrolimus today. They report taking 0.5 mg AM and 0. 5 pm. This matches the medication list. Confirmed with patient and caregiver that we have th e correct contact number for their medication change calls. 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 | | | |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) | | + +--------+ + + + | [facility] - PHOSPHORUS, | Routin | 07/25/2019 | S/P cord blood | Results for this | | PLASMA | e | 2:57 PM | transplantation MDS | procedure are in the | | | | PST | (myelodysplastic | results section. | | | |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) | | + +--------+ + + + | [facility] - LDH TOTAL, | Routin | 07/25/2019 | S/P cord blood | Results for this | | PLASMA | e | 2:57 PM | transplantation MDS | procedure are in the | | | | PST | (myelodysplastic | results section. | | | | | syndrome) ([facility]) | | + +--------+ + + + | CBC AND AUTO DIFF | Routin | 07/25/2019 | S/P cord blood | Results for this | | | e | 2:57 PM | transplantation MDS | procedure are in the | | | | PST | (myelodysplastic | results section. | | | | | syndrome) ([facility]) | | + +--------+ + + + | [facility] CBC W | Routin | 07/25/2019 | S/P cord blood | Results for this | | DIFFERENTIAL | e | 2:57 PM | transplantation MDS | procedure are in the | | | | PST | (myelodysplastic | results section. | | | | | syndrome) ([facility]) | | + +--------+ + + + | TACROLIMUS, WHOLE | Routin | 07/25/2019 | S/P cord blood | Results for this | | BLOOD | e | 2:57 PM | transplantation MDS | procedure are in the | | | | PST | (myelodysplastic | results section. | | | |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) | | + +--------+ + + + documented in this encounter Results CBC AND AUTO DIFF (07/25/2019 2:57 PM PST) + + + + + + | Component | Value | Ref Range | Performed | Pathologist | | | | | At | Signature | + + + + + + | WHITE CELL | 8.63 | 3.50 - 10.80 | [facility] | | | COUNT | | K/cu mm | LABORATORY | | | | | | SERVICES, | | | | | | [facility] | [facility] + | | | | | | HEALING | | + + + + + + | RED CELL | 3.56 (L) | 4.00 - 5.20 | [facility] | | | COUNT | | M/cu mm | LABORATORY | | | | | | SERVICES, | | | | | | [facility] | | | | [facility] + | | | | | | HEALING | | + + + + + + | HEMOGLOBIN | 10.7 (L) | 12.0 - 16.0 | [facility] | | | | | g/dL | LABORATORY | | | | | | SERVICES, | | | | | | [facility] | | | | [facility] + | | | | | | HEALING | | + + + + + + | HEMATOCRIT | 34.7 (L) | 36.0 - 46.0 % | [facility] | | | | | | LABORATORY | | | | | | SERVICES, | | | | | | [facility] | [facility] | | | | [facility] + | | | | | | HEALING | | + + + + + + | MCV | 97.5 | 80.0 - 100.0 fL | [facility] | | | | | | LABORATORY | | | | | | SERVICES, | | | | | | [facility] | | | | | | [facility] + | | | | | | HEALING | | + + + + + + | MCHC | 30.8 (L) | 32.0 - 36.0 | [facility] | | | | | g/dL | LABORATORY | | | | | | SERVICES, | | | | | | [facility] | | | | | | [facility] + | | | | | | HEALING | | + + + + + + | RDW SD | 74.0 (H) | 35.1 - 46.3 fL | [facility] | | | | | | LABORATORY | | | | | | SERVICES, | | | | | | [facility] | [facility] | | | [facility] + | | | | | | HEALING | | + + + + + + | PLATELET | 208Comment: | 150 - 400 K/cu | [facility] [...] + + + + | NEUTROPHIL | 76.5 (H) | 50.0 - 70.0 % | [facility] | | | % | | | LABORATORY | | | | | | SERVICES, | | | | | | [facility] | | | | | | [facility] + | | | | | | HEALING | | + + + + + + | LYMPHOCYTE | 11.6 (L) | 18.0 - 42.0 % | [facility] | | | % | | | LABORATORY | | | | | | SERVICES, | | | | | | [facility] | | | | | | [facility] + | | | | | | HEALING | | + + + + + + | MONOCYTE % | 8.1 | 3.5 - 9.0 % | [facility] | | | | | | LABORATORY | | | | | | SERVICES, | | | | | | [facility] | | | | | | [facility] + | | | | | | HEALING | | + + + + + + | EOS % | 0.8 (L) | 1.0 - 3.0 % | [...] + + + + | IG% | 2.8 (H) | 0.0 - 1.0 % | [facility] | | | | | | LABORATORY | | | | | | SERVICES, | | | | | | [facility] | | | | | | [facility] + | | | | | | HEALING | | + + + + + + | NEUTROPHIL | 6.60 | 1.80 - 7.70 | [facility] | | | # | | K/cu mm | LABORATORY | | | | | | SERVICES, | | | | | | [facility] | | | | | | [facility] + | | | | | | HEALING | | + + + + + + | NEUTROPHIL | 6.60Comment: Preliminary | 1.80 - 7.70 | [facility] [...] + + + | EOS # | 0.07 | 0.00 - 0.50 | [facility] | [...] + + + + | IG# | 0.24 (H) | 0.00 - 0.10 | [facility] [...] LABORATORY | [address] | [place] [address] | | | [facility] | | | | | HEALTH + HEALING | | | | + + + + + TACROLIMUS, WHOLE BLOOD (07/25/2019 2:57 PM PST) + +-------+ + + + | Component | Value | Ref Range | Performed | Pathologist | | | | | At | Signature | + +-------+ + + + | TACROLIMUS | 9.5 | 5.0 - 15.0 | [facility] | [...] | Test performed by immunoassay using Hyatt Compressor Repairer i2000. . | [facility] | | Samples [...] | + + + + + | [employer] | [address] | [place] [address] | | | SERVICES, SPECIAL | [address] | | | | IMM + COAG | | | | + + + + + [facility] - PHOSPHORUS, PLASMA (07/25/2019 2:57 PM PST) + +-------+ + + + [...] [facility] | [address] | [place] [address] | | | SERVICES, CENTER FOR | | | | | HEALTH + HEALING | | | | + + + + + [facility] - MAGNESIUM, PLASMA (07/25/2019 2:57 PM PST) + +---------+ + + + [...] LABORATORY | [address] | [place] [address] | | | [facility] | | | | | HEALTH + HEALING | | | | + + + + + [facility] - LDH TOTAL, PLASMA (07/25/2019 2:57 PM PST) + +---------+ + + + | Component | Value | Ref Range | Performed | Pathologist | | | | | At | Signature | + +---------+ + + + | LD TOTAL, | 267 (H) | <=250 U/L | [facility] | | | PLASMA | | | LABORATORY | | | | | | [facility], | | | | | | [facility] | | | | | | HEALTH + | | | | | | HEALING | | + +---------+ + + + | LD CMNT | Sl Hemo | | [facility] | | | [...] Performed At | + + + | Sample hemolyzed. Results for LD may be inaccurate. Refer to | [facility] | | comment under test. | LABORATORY | | | SERVICES, | | | [facility]ENTER FOR | | | HEALTH + | | | HEALING | + + + + + + + + | Performing | Address | City/State/Zipcode | Phone Number | | Organization | | | | + + + + + | [facility] | [address] | [place] [address] | | | SERVICES, [facility] | | | | | HEALTH [...]
--- OUTSIDE RECORDS SUMMARY | ~2020-03-12 | XMS | Encounter Summary ---
Demographics + + + | Address | [address] | | | [place] [address] | + + + | Home Phone [...] + + + | Author | [facility] | + + + | Organization | [facility] | + + + | Address | Unknown | + + + | Phone | Unavailable | + + + Support + + +---------+ + | Name | Relationship | Address | Phone | + + +---------+ + | Claudia Cota | ECON | Unknown | | + + +---------+ + Care Team Providers + +------+ + | Care Sealer Sander Name | Role | Phone | + +------+ + | Meredith Sanchez | PCP | | + +------+ + Encounter Details +--------+ + + + + | Date | Type | Department | Care Team | Description | +--------+ + + + + | 08/11/ | Forestry Technical Officer | [facility] | Sejal De La Torre | | | 2019 | | Clinics at S | N, DO [address] | | | | | [address] | | | | | [facility] for | [place], [place] | | | | | Health and Healing, | [address] | | | | | [address] | [phone] | | | | | [place], [place] | | | | | | [address] | | | | | | [phone] | | | +--------+ + + + [...]
--- OUTSIDE RECORDS SUMMARY | ~2020-03-12 | XMS | Encounter Summary ---
Demographics + + + | Address | [address] | | | [place] [address] | + + + | Home Phone [...] Team Providers + +------+ + | Care Gasateria Attendant Name | Role | Phone | + +------+ + | Meredith Sanchez | PCP | | + +------+ + Encounter Details +--------+--------+ + + + | Date | Type | Department | Care Team | Description | +--------+--------+ + + + | 05/31/ | Travel | | | | | [...]
--- OUTSIDE RECORDS SUMMARY | ~2020-03-12 | XMS | Encounter Summary ---
Demographics + + + | Address | [address] | | | [place] [address] | + + + | Home Phone [...] Author + + + | Author | [facility] | + + + | Organization | [facility] | + + + | Address | Unknown | + + + | Phone | Unavailable | + + + Support + + +---------+ + | Name | Relationship | Address | Phone | + + +---------+ + | Claudia Cota | ECON | Unknown | | + + +---------+ + Care Team Providers + +------+ + | Care Baby Stroller Rental Clerk Name | Role | Phone | + +------+ + | Meredith Sanchez | PCP | | + +------+ + Reason for Visit + +--------+ + | Reason | Onset | Comments | | | Date | | + +--------+ + | Refill Request | 08/05/ | | | | 2020 | | + +--------+ + Encounter Details +--------+--------+ + + + | Date | Type | Department | Care Team | Description | +--------+--------+ + + + | 08/05/ | Refill | [facility] | marjorieSejal rosas | Refill Request | | 2020 | | Clinics at S | N, DO [address] | | | | | [address] | [address] | | | | | [address] [facility] for | [place], [place] | | | | | Health and Healing, | [address] | | | | | [address] | [phone] | | | | | [place], [place] | | | | | | [address] | | | | | | [phone] | | | +--------+--------+ + + + [...] this encounter Miscellaneous Notes Telephone Encounter - Kalie Fragoso RN - 08/05/2019 9:56 AM PSTNeed to resend RX for dapso ne to pt's local pharmacy instead of Specialty pharmacy. documented in this encounter Plan of Treatment Not on filedocumented as of this encounter Visit Diagnoses Not on filedocumented in this encounter"
--- OUTSIDE RECORDS SUMMARY | ~2020-03-12 | XMS | Encounter Summary ---
Demographics + + + | Address | [address] | | | [place] [address] | + + + | Home Phone [...] Author + + + | Author | [facility] | + + + | Organization | [facility] | + + + | Address | Unknown | + + + | Phone | Unavailable | + + + Support + + +---------+ + | Name | Relationship | Address | Phone | + + +---------+ + | Claudia Cota | ECON | Unknown | | + + +---------+ + Care Team Providers + +------+ + | Care Lawnmower Repair Mechanic Name | Role | Phone | + +------+ + | Meredith Sanchez | PCP | | + +------+ + Encounter Details +--------+ + + + + | Date | Type | Department | Care Team | Description | +--------+ + + + + | 05/23/ | Pharmacy | Specialty Pharmacy | | | | 2019 | Visit | Services [address] | | | | [address] | | | | | | [place], [place] | | | | | | [address] | | | | | | [phone] | | | +--------+ + + + [...]
--- OUTSIDE RECORDS SUMMARY | ~2020-03-12 | XMS | Encounter Summary ---
Demographics + + + | Address | [address] | | | [place] [address] | + + + | Home Phone | | + + + | Preferred Language | Unknown | + + + | Marital Status | Single | + + + | Latter Day Affiliation | NRP | + + + [...] Team Providers + +------+ + | Care Honey Blender Name | Role | Phone | + +------+ + | Meredith Sanchez | PCP | | + +------+ + Reason for Visit + +--------+ + | Reason | Onset | Comments | | | Date | | + +--------+ + | Medication Questions | 09/29/ | refill orders that were talked about over the phone | | | 2020 | consult 09/28 | + +--------+ + Encounter Details +--------+ + + + + | Date | Type | Department | Care Team | Description | +--------+ + + + + | 09/29/ | Telephone | [facility] | Sejal De La Torre | Medication Questions | | 2019 | | Clinics at S | N, DO [address] [facility] | (refill orders that | | | | [address] | [facility] | were talked about | | | | [facility] for | [place], [place] | over the phone | | | | Health and Healing, | [address] | consult 09/28) | | | | [facility] | [phone] | | | | | [place], [place] | | | | | | [address] | | | | | | [phone] | | | +--------+ + + + [...] Notes Telephone Encounter - Rosalie Donovan - 09/30/2019 10:56 AM PDTPatient called in and stated t hat Dr. De La Torre was to call in some refill of medication that she needed to start up since he r transplant and also some cold medication as she was not sure what would interact with ever ything she already takes. She called into her pharmacy and they have not received any refill orders. documented in this e ncounter Plan of Treatment Not on filedocumented as of this encounter Visit Diagnoses Not on filedocumented in this encounter"
--- OUTSIDE RECORDS SUMMARY | ~2020-03-12 | XMS | Encounter Summary ---
Demographics + + + | Address | [address] | | | [place] [address] | + + + | Home Phone | | + + + | Preferred Language | Unknown | + + + | Marital Status | Single | + + + | Baptism Affiliation | NRP | + + + [...] Team Providers + +------+ + | Care Fortune Cookie Maker Name | Role | Phone | + +------+ + | Meredith Sanchez | PCP | | + +------+ + Encounter Details +--------+--------+ + + + | Date | Type | Department | Care Team | Description | +--------+--------+ + + + | 04/14/ | Travel | | | | | [...]
--- OUTSIDE RECORDS SUMMARY | ~2020-03-12 | XMS | Encounter Summary ---
Demographics + + + | Address | [address] | | | [place] [address] | + + + | Home Phone | | + + + | Preferred Language | Unknown | + + + | Marital Status | Single | + + + | Catholic Affiliation | NRP | + + [...] Team Providers + +------+ + | Care Hydrography Teacher Name | Role | Phone | + +------+ + | Meredith Sanchez | PCP | | + +------+ + Encounter Details +--------+--------+ + + + | Date | Type | Department | Care Team | Description | +--------+--------+ + + + | 03/09/ | Travel | | | | | [...]
--- OUTSIDE RECORDS SUMMARY | ~2020-03-12 | XMS | Encounter Summary ---
Demographics + + + | Address | [address] | | | [place] [address] | + + + | Home Phone [...] Team Providers + +------+ + | Care Nailhead Puncher Name | Role | Phone | + +------+ + | Meredith Sanchez | PCP | | + +------+ + Encounter Details +--------+ + + + + | Date | Type | Department | Care Team | Description | +--------+ + + + + | 02/23/ | Documentati | [facility] | Work, Social | | | 2020 | on | Clinics at S | | | | | | [address] | | | | | | [address] [facility] for | | | | | | Health and Healing, | | | | | | [address] | | | | | | [place], [place] | | | | | | [address] | | | | | | [phone] | | | +--------+ + + + [...] Encounter - Janee Bellamy MSW - 02/24/2020 3:43 PM PDTName:Nona Hopper Date: td : 1965 Problem Identified: Fatigue and depression Called Nona today and discussed the above problems. Nona is experiencing difficulty in this area due being fatigued, living alone and be isolated due to the current pandemic. She says she is not sure if it is fatigue or depression. SW discussed the cycle that can occur with fatigue. Also discussed counseling and survivor resources. This is information that I sent to her: 1. [facility] http://[employer]/ 590 864 6185 2. [employer] talk to a survivor: https://www.bmtinfonet.org/get-help/xlxb-rroyiezv-ct-fam nereyda-caregiver Survivorship seminar and webinars https://www.bmt[employer].org/2019-usama u-vjsbea-wlpujv-baid-avkhqxoavpyg-iftnctqrx 3. General resources [employer] https://www.nbmtlink.org/helpful-resources/?fwp_search=Transp lant%20survivor Encouraged patient to let me know how this goes for her. Plan/Intervention: Social work will plan to be available for support and assistance as need ed. KRIS FAULKNER, AWNING HANGER [facility] [place] [id number] [facility], [address] [place] [address] documented in this en counter Plan of Treatment Not on filedocumented as of this encounter Visit Diagnoses Not on filedocumented in this encounter"
--- OUTSIDE RECORDS SUMMARY | ~2020-03-12 | XMS | Encounter Summary ---
Demographics + + + | Address | [address] | | | [place] [address] | + + + | Home Phone [...] Author + + + | Author | [facility] | + + + | Organization | [facility] | + + + | Address | Unknown | + + + | Phone | Unavailable | + + + Support + + +---------+ + | Name | Relationship | Address | Phone | + + +---------+ + | Claudia Cota | ECON | Unknown | | + + +---------+ + Care Team Providers + +------+ + | Care Scribing Machine Operator Name | Role | Phone | + +------+ + | Meredith Sanchez | PCP | | + +------+ + Reason for Visit + +--------+ + | Reason | Onset | Comments | | | Date | | + +--------+ + | Needs Paperwork | 05/25/ | eduard stated last fax [facility] | | | 2019 | may be incomplete in that it did not contain a progress | | | | note for pt | + +--------+ + Encounter Details +--------+ + + + + | Date | Type | Department | Care Team | Description | +--------+ + + + + | 05/25/ | Telephone | [facility] | Sejal De La Torre | Needs Paperwork | | 2019 | | Clinics at S | N, DO [address] | (caller stated last | | | | [address] | [facility] [address] | fax sent to | | | | Reji Pascal for | [facility] [place] | [facility] | | | | Health and Healing, | [address] | may be incomplete | | | | [address] | [phone] | in that it did not | | | | [facility] [place] | | contain a progress | | | | [address] | | note for pt ) | | | | [phone] | | | +--------+ + + + [...] encounter Miscellaneous Notes Telephone Encounter - Tayo Casillas - 05/25/2019 10:[address] [facility]'s office called in to inform Dr De La Torre and team that the previous fax that was sent to [facility] in reference to this pt said "please see attached progress note." Caller stated that there was an attachment but it was a blank page, and there was no progre ss report/note in the fax. If this was a mistake, they would like the fax be resent, if there was not supposed to be a progress note please disregard. Fax number given for [facility] [phone]. Marlin thomas in this encounter Plan of Treatment Not on filedocumented as of this encounter Visit Diagnoses Not on filedocumented in this encounter
--- OUTSIDE RECORDS SUMMARY | ~2020-03-12 | XMS | Encounter Summary ---
Demographics + + + | Address | [address] | | | [place] [address] | + + + | Home Phone | | + + + | Preferred Language | Unknown | + + + | Marital Status | Single | + + + | Yarsanism Affiliation | NRP | + + + [...] Team Providers + +------+ + | Care Life Insurance Sales Name | Role | Phone | + +------+ + | Meredith Sanchez | PCP | | + +------+ + Reason for Visit + + + | Reason | Comments | + + + | Transplant follow-up | | + + + Office Visit - E/M Services (Routine) +--------+--------+ + + + + | Status | Reason | Specialty | Diagnoses / | Referred By | Referred To | | | | | Procedures | Contact | Contact | +--------+--------+ + + + + | Closed | | Hematology / | Diagnoses | [place], | Wil, | | | | Hematology | MDS | Sejal Meadows, | Sejal Meadows, | | | | Malignancy | (myelodyspla | DO [address] | DO [address] | | | | | stic | Jon [address] | Jon [place]verde | | | | | syndrome) | [address] | | | | | (HCC) | [place], [place] | [place], [place] | | | | | Procedures | [address] | [address] | | | | | [place] | Phone: | Phone: | | | | | OFFICE/OUTPT | [phone] | [phone] | | | | | | Fax: | Fax: | | | | | VISIT,VENKATESH,LE | [phone] | [phone] | | | | | VL IV | | | +--------+--------+ + + + + Encounter Details +--------+---------+ + + + | Date | Type | Department | Care Team | Description | +--------+---------+ + + + | 06/10/ | Office | [facility] | Apple Bergeron, | 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 | [place], [place] | cord blood | | | | Health and Healing, | [address] | transplantation | | | | Building [address] | [phone] | | | | | [place], [place] | | | | | | [address] | | | | | | [phone] | | | +--------+---------+ + + + [...] + + + | Blood Pressure | 91/60 | 06/10/2019 10:29 AM | | | | | PST | | + + + + + | Pulse | 82 | 06/10/2019 10:29 AM | | | | | PST | | + + + + + | Temperature | 37 C (98.6 F) | 06/10/2019 10:29 AM | | | | | PST | | + + + + + | Respiratory Rate | 18 | 06/10/2019 10:29 AM | | | | | PST | | + + + + + | Oxygen Saturation | 99% | 06/10/2019 10:29 AM | | | | | PST | | + + + + + | Inhaled Oxygen | - | - | | | Concentration | | | | + + + + + | Weight | 60.8 kg (134 lb) | 06/10/2019 10:29 AM | | | | | PST | | + + + + + | Height | - | - | | + + + + + | Body Mass Index | 24.01 | 04/15/2019 1:50 PM | | | [...] of this encounter Patient Instructions Patient Instructions Apple Bergeron PA - 06/10/2019 11:10 AM PST-Take your temperature regularly (3-4 x daily) and to call immediately for a temperature of 100.4 or greater. -We'll call you to adjust your Tacrolimus if necessary. -Start dapsone 100 mg once daily. documented in this encounter Progress Notes Apple Bergeron PA - 06/10/2019 11:10 AM PSTFormatting of this note might be different f rom the original. 06/10/2019 [facility] Physician: Sejal De La Torre DO Local oncologist: Dr. Sequeira Hematologic Malignancy: MDS Conditioning regimen: FluCyTBI Date of transplant: 04/22/2019 Donor: CBU 1: [id number]/02 match, CBU 2: [id number]/02 match Research study: Kyel "[id number]: A Multicenter, Randomized, Phase III Registration Tr [facility] of Transplantation of NiCord, Ex Vivo Expanded, [...] s howing dropping counts. --Jun. Moved to [place] ([facility]) -- 10/07/18 showed normal chemistries, Bilirubin 1.4, [...] for D4-D7. 01/14-01/26/2019 admitted for zoster to [facility]. Vidaza held. 02/17/2019- seen at [facility] by Dr. De La Torre, no healthy siblings so cord blood is only option -consented to kyle "[id number]: A Multicenter, Randomized, Phase III Registration Tri ut of Transplantation of NiCord, Ex Vivo Expanded, UCB-derived, Stem and Progenitor Cells, vs. Unmanipulated UCB for Patients With Hematological Malignancies". She was randomized to SOC arm. --02/21-03/01 C3 aza.Tolerated well without complications. --04/15-05/18/2019 admitted to [facility] for planned flu/cy/tbi conditioned UCB on Gamida study (SOC arm). 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 Nona Hopper is a 53 y.o. female with hx of MDS, currently day +49, s/p Flu/cy/TBI co nditioned URD cord on gamida trial -on SOC arm. Interval History: Comes to clinic today for her routine scheduled visit. She is unaccompanied in clinic today . She is doing ok today. Still with fatigue and lack of energy. Continues to deny fevers. Eating remains challenging but she's taking in small meals and drinking ~1.5-2L/day. She c ontinues to have restless leg type sxs last night which made it more difficult for her to sl eep. Started requip but has seen little effect so far. She is having some nausea along with abdominal cramping before she has a BM. Stools are mo stly soft but she did have some diarrhea yesterday and took an imodium. Denies emesis. Headaches continue intermittently and she thinks they may be associated with the tacrolimus . Sometimes she wakes up with a headache. She denies rash. Review of Systems: General: Denies fevers, chills, weight loss or sweats. +fatigue-stable ENT: +headaches-stable Denies changes in vision or double vision. Denies hearing loss, nose bleeds, nasal congestion, difficulty swallowing, hoarseness or sore throat. Respiratory: +shortness of breath with exertion Denies coughing up blood, excessive sputum, cough, chest discomfort or wheezing. Cardiovascular: No chest pain, lightheadedness,shortness of breath. Gastrointestinal: Denies indigestion, vomiting, +nausea/abd cramping prior to BMs, diarrhea x 1 constipation, bloody stools or dark tarry stools. Musculoskeletal: No joint pain, swelling, stiffness, back pain, arthritis, muscle aches or muscle cramps. Skin: Denies rash. Psychological: +insomnia/restless leg No abnormal anxiety, depression. Remainder of ROS is otherwise negative. Current Medication List Name Sig DAPSONE 100 MG TABLET Take 1 tablet by mouth once daily. ESCITALOPRAM 20 MG TABLET Take 1 tablet [...] daily as needed. Indications: bone pain . MAGNESIUM OXIDE-MAGNESIUM AMINO ACID CHELATE 133 MG TABLET Take 1 tablet by mouth two times daily. MYCOPHENOLATE MOFETIL 500 MG TABLET Take 2 [...] once daily. Indications: prevention of fungal infection PROCHLORPERAZINE MALEATE 5 MG TABLET Take 1-2 tablets by mouth every six hours as needed fo r nausea/vomiting. Max dose: 40 mg/day ROPINIROLE 0.25 MG TABLET Take 1 tablet by mouth once daily in the evening. SENNOSIDES 8.6 MG-DOCUSATE SODIUM 50 MG TABLET Take 1-2 tablets by mouth every twelve hours as needed for constipation. TACROLIMUS 0.5 MG CAPSULE Effective 06/03/2019: Take 1 mg by mouth every morning and 0.5 mg every evening. Combine 0.5mg and 1mg capsules to make your current dose. HOLD on days of cl inic and bring with you to take AFTER your labs are drawn. Indications: prevention of graft versus host TACROLIMUS 1 MG CAPSULE Effective 06/03/2019: Take 1 mg by mouth every morning and 0.5 mg e very evening. Combine 0.5mg and 1mg capsules to make your current dose. HOLD on days of clin ic and bring with you to take AFTER your labs are drawn. Indications: prevention of graft ve rsus host disease TRAMADOL 50 MG TABLET Take [...] Vitals: BP Readings from Last 1 Encounters: 06/10/19 129/57 Pulse Readings from Last 1 Encounters: 06/10/19 68 Resp Readings from Last 1 Encounters: 06/10/19 16 Wt Readings from Last 1 Encounters: 06/10/19 60.8 kg (134 lb) Temp Readings from Last 1 Encounters: 06/10/19 37.1 C (98.7 F) (Oral) Body mass index is 24.01 kg/m. Physical Exam: General:This is a femalein no acute distress sitting up in bed. HEENT:PERRL. Sclerae anicteric. Mucosa pink and moist. No ulcers or exudates Skin:No rash or lesions noted. Chest:Clear to auscultation bilaterally. [...] 72 hours (or 3 results) Recent Labs 06/10/19 1028 WBC 2.27* HB 7.6* HCT 23.1* PLT 94* NEUTROPERC 54.7 LYMPHPERC 15.9* MONOPERC 20.7* BASOPERC 0.4 EOSPERC 7.0* Chemistries: Last 72 Hours (or 3 results): Recent Labs 06/03/19 0932 06/07/19 0928 06/10/19 1028 NA 131* 133* 134* K 3.3* 3.4 3.7 CL 94* 100 100 BICARB 24 23 22 BUN 31* 16 9 CR 1.13* 0.95 0.76 GLU 118* 111* 105* CA 9.1 9.2 8.9 AST 13 12 16 ALT 14 15 15 AP 108* 92 81 TBILI 0.5 0.5 0.7 TP 7.0 6.4 6.1* ALB 3.7 3.5 3.3* ANIONGAP 13* 10 12* ANIONALBCOR 13* 11 13* Lab Results Component Value Date MG 1.2 06/10/2019 Hematology: Hematologic Malignancy: MDS Conditioning Regimen: FluCyTBI Research study: Kyle "[id number]: A Multicenter, Randomized, Phase III Registration Trial [...] 10 6 per kg Stem Cell Day: +49 Post-transplant: -Day +21 chimerism ordered per study: 100% donor #2 CD33, CD56, CD3 and CD19 insufficient for analysis -BM Bx to be completed on day +30, day +100, 6 months, and 1 year post-transplant -Day +30 BMBX completed on 05/25 -Results: Hypocellular marrow (25%) with trilineage hematopoiesis. No increase in blast s, <2%. -Cytogenetics/FISH: normal female -VNTR: 100% donor #2 (female) -Genetrails: PENDING -Around day + 60, we will return her to her primary attending with our BMT service, Dr. Sa nails; first appointment scheduled for 06/16 CBC reviewed and reveals anemia and thrombocytopenia. WBC/ANC WNL and platelets trending u pward independent of transfusion. 1U PRBCs today. 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 ?Engraftment Syndrome: notable for weight gain, dypsnea requiring 1-2L NC, hyperbilirubinem ia, and diffuse non-pruritic erythematous maculopapular rash to trunk/back and extremities ~ 48 hours prior to count appearance -s/p Methylpred 0.5mg/kg/day (05/05-05/09) -s/p Pred 0.25 mg/kg/d (20 mg), (05/10-05/14 ) -s/p Pred 10 mg daily (05/15-05/17) -Pred 5mg daily (05/19-04/22/2019)- then dc'd Supportive Care: Growth Factor: last dose of Neupogen given on 05/19/2019 , re-dose if ANC <1000 Labs: Continue to check CBC twice weekly Transfusion parameters: -Transfuse PRBCs for HCT <24% (d/t symptomatic anemia) -Transfuse PPH for platelet count <10,000 sooner for s/s bleeding GVHD: At this time, there is no evidence of acute ofugc-zborci-lwyn disease of the skin, gut, or liver. Prophylaxis/Treatment: Prophylaxis with tacrolimus and MMF per Gamida protocol -Tacrolimus startedD-3 (goal 5-15) -MMF 1 gm PO TID D-3 to D+35 (to stop on 06/21/2019) Acute GvHD Staging: Skin: stage 0 Gut: stage 0 Liver: stage 0 Overall Grade: 0 Kyle Simpson phase 3 (IRB 67544) Acute GVHD Staging Complete on study visit [...] mL diarrhea/day 2 25-50% BSA 3.1-6 mg/dL 9766-2388 mL diarrhea/day 3 >50% BSA Generalized erythroderma [...] (describe):n Complete Values: BSA%:n Bullae (Y/N):n TBili: 0.7 24H Diarrhea Vol: na Severe abd pain (Y/N):n Ileus (Y/N):n Assign Stage: 0 0 0 0 Presumptive/ Confirmed Dx of aGVHD? (Y/N) n n n n HEENT: Headaches: no associated neuro sxs, vision changes and HAs mild and intermittent in nature -Tramadol PRN, started 05/31 Pulmonary: Pretransplant PFTs completed on03/10/19 showed FEV1 of76% predicted, FVC o f87% predicted and adjusted DLCO of77% predicted. Cardiovascular: Pretransplant TTE completed on 03/10/2019 showed a LVEF of 64%. Hx/oPICC line associated DVT:Noted on US 01/17/19 involved both right and left UE.Felicita gaines completed 3 months ofanticoagulationwith apixiban, end date 04/14/19. 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 -s/p Lisinopril 5 mg PO daily (05/07-05/08) -DC'd triamterene/HCTZ on 06/03 with low-enzo BP and ongoing renal insufficien cy GI: Nausea/abd cramping: prior to BMs -Closely monitor for additional s/s of GVHD -Antiemetics PRN Risk of gastritis: -Pepcid 20 mg BID Risk for VOD:no e/o this currently -Ursodiol 500 mgPO BID through Day +90 /Renal: SAM: sCr up to 1.43 on 05/20 2/2 supratherapeutic tacrolimus. Improved and back to baselin e. -Tacro adjusted -1L NS bolus at each clinic visit. Psych: Insomnia/restless leg -Ramelteon ordered on 05/31, PA denied -Requip 0.25 mg qHS, started 06/07 Depression:Stable, continue home SSRI. -Lexapro 20 mg PO daily Infectious Disease: Low-grade temps: likely 2/2 recent zarxio. Bld cx 06/03 NGTD No acute issues. Afebrile and no evidence of acute infection at this time. The patient is reminded to take her temperature regularly (3-4 x daily) and to call immediately for a temp erature of 100.4 or greater. Herpes Zoster, recent history: Noted in December, now s/p treatment with IV acyclovirfrom a pprox 01/10 through 01/16 then transitioned to valacyclovir 1g TID to complete an additional 7 dcourse (extended for new lesions).She will continue on valacyclovir(rather than acycl ovir)through day +365 post transplant. -Valacyclovir 500mg BID Antiviral: The CMV will be followed twice weekly for reactivation by PCR. -HHV6 and EBV weekly -EBV- 12/3- negative -HHv6- 12/3 undetected Lab Results Component Value Date CMVQUANTPCR Undetected 06/07/2019 CMVQUANTPCR Undetected 06/03/2019 CMVQUANTPCR Undetected 05/31/2019 CMVQUANTPCR Undetected 05/27/2019 Antifungal: Posaconazole for antifungal prophylaxis through day +100 PCP proph: Pentamidine IV for PCP prophylaxis given on 05/13/2019. Dapsone started on 06/10 . Toxo: Pt is toxo negative, no further testing required. Fluid/Nutrition/Lytes: Nutrition: Current diet -- low bacteria. Encourage po intake as tolerated with a goal of co nsistently drinking at least 2L calorie containing fluids per day. IV Fluid: 1L NS IVPB at each clinic visit d/t marginal PO intake Lytes: Continue to check chemistries twice weekly. Replace per supportive care protocol. -HypoMg / CNI: start PO mag 1 tab BID on 06/03. Pharmacy is out of this medication curre ntly Plan: -Mg sulfate 8g IV today. -1L NS bolus IV today -1U PRBCs today. -The tacrolimus dose will be adjusted when the tacrolimus trough is available. -Start dapsone 100 mg once daily. -F/u sleep/restless leg. -F/u Genetrails. -Return to clinic 06/13 to see me, sooner prn. LACY Rutledge [facility] [address] Mailcode: [place] [address] documented in this encounter Plan of Treatment Not on filedocumented as of this encounter Results VERITO-LORENZO VIRUS PCR, PLASMA (06/13/2019 9:22 AM PST) [...] we have completed a quantitative polymerase | PRSU-MORALES | | chain reaction (PCR) based study [...] | | performance characteristics determined by the [facility] Molecular | | | Diagnostics Center. It has not been cleared or approved by the Food | | | and Drug Administration. FDA approval is not required for clinical | | | use of this test, and therefore validation was done as required under | | | the requirements of the Clinical Laboratory Improvement Act of 1988. | | | The [facility] is a fully licensed and/or accredited clinical laboratory | | | under CLIA, CAP, and the [facility]. References: 1) | | | Phong et al. Laboratory assays for EBV-related disease. J Molec | | | Diagn 10: 279-292, 2007. 2) Kristao et al. EBV viral load and | [...] | | real-time polymerase chain reaction. Transfusion 2008;48:9530-6922. | | | 4) Bassam BEARDEN, Genny CASAS, Félix I, van keshia Bij W, et al. | | | Frequent monitoring of Verito-Lorenzo virus DNA load in unfractionated | | | whole blood is essential for early detection of posttransplant | | | lymphoproliferative disease in high-risk patients. Blood | | | 2001;97(5):2719-8071. | | + + + + + + + + | Performing | Address | City/State/Zipcode | Phone Number | | Organization | | | | + + + + + | [facility] | [address] | [place] [address] | | | DIAGNOSTIC | [address] [...] [facility] | | | | to the [facility] | | | | | | Test Directory for | | | | | | validated specimen | | | | | | source information: | | | | | | [email or web address] | | | | | | esting. [...] | ION - HHV6 | Performed by [facility] | | REG UNIV | | | QUANT | Laboratories,[address] | | PTH - [facility] | | | | [place] [address] | | | | | | [phone]. | | | | | | Zeferino [...] A: | | | | | | [facility] | | | | + + + [...] [facility] | [address] | [place], [place] | | | UNIV PTH - [facility] | | [address] | | + + + + + [...] 2 fold may not reflect true | [facility] | | biological changes and must be [...] | characteristics determined by the [facility] | | | Molecular Diagnostic Center. It has not been cleared or approved by | | | the Food and Drug Administration. FDA approval is not required for | | | clinical use of this test, and therefore validation was done as | | | required under the requirements of the Clinical Laboratory Improvement | | | Act of 1988. The [facility] Molecular | | | Diagnostic Center is a fully licensed and/or accredited clinical | | | laboratory under CLIA, CAP, and the [facility]. | | + + + + + + + + | Performing | Address | City/State/Zipcode | Phone Number | | Organization | | | | + + + + + | [facility] | [address] | [place] [address] | | | DIAGNOSTIC | [address] [...] | Test performed by immunoassay using [employer] i2000. . | [facility] | | Samples [...] | + + + + + | [facility] | [address] | [place] [address] | | | SERVICES, SPECIAL | PARK [...] [facility] | [address] | [place] [address] | | | SERVICES, [facility] | | | | | HEALTH + HEALING | | | | + + + + + [facility] - COMPLETE METABOLIC SET (06/13/2019 9:22 AM [...] | | | LABORATORY | | | [facility] | | | SERVICES, | | | [...] SERVICES, | | | | | | [place] [facility] | | | | | | [...] MDRD equation recommended by the National | [facility] | | Kidney Disease Education [...] | + + + + + | [facility] | [address] | [place] [address] | | | SERVICES, [facility] | | | | | [...] | | | | | | CENTER [facility] | | | | | | HEALTH [...] LABORATORY | [address] | [place] [address] | | | [facility], [facility] | | | | | HEALTH + HEALING | | | | + + + + + [facility] - MAGNESIUM, PLASMA (06/13/2019 9:22 AM PST) [...] [facility] | [address] | [place] [address] | | | SERVICES, [facility] | | | | | HEALTH [...]
--- OUTSIDE RECORDS SUMMARY | ~2020-03-12 | XMS | Encounter Summary ---
Demographics + + + | Address | [address] | | | [place] [address] | + + + | Home Phone [...] Team Providers + +------+ + | Care Terrazzo Worker Name | Role | Phone | + +------+ + | Meredith Sanchez | PCP | | + +------+ + Encounter Details +--------+ + + + + | Date | Type | Department | Care Team | Description | +--------+ + + + + | 07/07/ | Pharmacy | Pharmacy @ [facility] | | | | 2020 | Visit | [address] | | | | | | [address] Mailcode: | | | | | | [facility] | | | | | | and Healing, | | | | | | [address] | | | | | | [place], [place] | | | | | | [address] | | | +--------+ + + + [...]
--- OUTSIDE RECORDS SUMMARY | ~2020-03-12 | XMS | Encounter Summary ---
Demographics + + + | Address | [address] | | | [place] [address] | + + + | Home Phone | | + + + | Preferred Language | Unknown | + + + | Marital Status | Single | + + + | Quaker Affiliation | NRP | + + + [...] Team Providers + +------+ + | Care Electrician Journeyman Wireman Name | Role | Phone | + +------+ + | Meredith Sanchez | PCP | | + +------+ + Encounter Details +--------+--------+ + + + | Date | Type | Department | Care Team | Description | +--------+--------+ + + + | 07/21/ | Travel | | | | | [...]
--- OUTSIDE RECORDS SUMMARY | ~2020-03-12 | XMS | Encounter Summary ---
Demographics + + + | Address | [address] | | | [place] [address] | + + + | Home Phone [...] Author + + + | Author | [facility] | + + + | Organization | [facility] | + + + | Address | Unknown | + + + | Phone | Unavailable | + + + Support + + +---------+ + | Name | Relationship | Address | Phone | + + +---------+ + | Claudia Cota | ECON | Unknown | | + + +---------+ + Care Team Providers + +------+ + | Care Economic Developer Name | Role | Phone | + +------+ + | Meredith Sanchez | PCP | | + +------+ + Reason for Visit + +--------+ + | Reason | Onset | Comments | | | Date | | + +--------+ + | Medication | 06/07/ | IST: Tacrolimus | | Adjustment | 2019 | | + +--------+ + Encounter Details +--------+ + + + + | Date | Type | Department | Care Team | Description | +--------+ + + + + | 06/07/ | Telephone | Center for | Apple Bergeron, | Medication | | 2019 | | Hematologic | [place] [address] | Adjustment (IST: | | | | Malignancies at | [address] | Tacrolimus) | | | | [facility] | [place], [place] | | | | | [address] | [address] | | | | | Loop Mailcode: | [phone] | | | | | [id number] | | | | | | [facility] [place], | | | | | | [place] [address] | | | | | | [phone] | | | +--------+ + + + [...] Telephone Encounter - Qasim Jensen MA - 06/07/2019 4:51 PM PST Result Follow-up CSA level: Lab Results Component Value Date FK506 6.6 06/07/2019 Nona's dose will remain the same per LACY Fung. Nona and/or her caregiver have been contacted and were able to provide verbal read back o f these instructions. Spoke with Nona. Qasim Jensen CMA. elephone Encounter - Marj Reyes RN - 06/07/2019 10:06 AM PSTInitial Assessment Nona Hopper's personal development coach for today is patient, Nona Hopper, and her conta ct phone number for today 06/07 is: [phone]. Nona has been advised of when to [...] her last dose at 2100 (time) on 06/06 (date). documented in this enco unter Plan of Treatment Not on filedocumented as of this encounter Visit Diagnoses Not on filedocumented in this encounter"
--- OUTSIDE RECORDS SUMMARY | ~2020-03-12 | XMS | Encounter Summary ---
Demographics + + + | Address | [address] | | | [place] [address] | + + + | Home Phone [...] Author + + + | Author | [facility] | + + + | Organization | [facility] | + + + | Address | Unknown | + + + | Phone | Unavailable | + + + Support + + +---------+ + | Name | Relationship | Address | Phone | + + +---------+ + | Claudia Cota | ECON | Unknown | | + + +---------+ + Care Team Providers + +------+ + | Care Gun Examiner Name | Role | Phone | + +------+ + | Meredith Sanchez | PCP | | + +------+ + Reason for Visit + + + | Reason | Comments | + + + | Lab Draw | | + + + | Hydration | | + + + | Infusion | | + + + | Dressing change | | + + + Other (Routine) [...] | | stic | Jon Valverde | [place] for | | | | | syndrome) | [facility] | [facility] | | | | | (HCC) | [place], [place] | Healing, | | | | | Procedures | [address] | [address] | | | | | [place] | Phone: | [place], [place] | | | | | OFFICE/OUTPT | [phone] | [address] | | | | | | Fax: | Phone: | | | | | VISIT,EST,LE | [phone] | [phone] | | | | | VL IV ME | | Fax: | | | | | EST PATIENT | | [phone] | | | | | LEVEL V | | | +--------+--------+ + + + + Encounter Details +--------+ + + + + | Date | Type | Department | Care Team | Description | +--------+ + + + + | 06/16/ | Hospital | [facility] | | | | 2019 | Encounter | [facility] | | | | | | [facility] [address] | | | | | | [address] [facility] | | | | | [facility], | | | | | | [address] | | | | | | [place], [place] | | | | | | [address] | | | | | | [phone] | | | +--------+ + + + [...] + + + | Blood Pressure | 110/68 | 06/16/2019 9:46 AM | | | | | PST | | + + + + + | Pulse | 82 | 06/16/2019 9:46 AM | | | | | PST | | + + + + + | Temperature | 36.7 C (98 F) | 06/16/2019 9:46 AM | | | | | PST | | + + + + + | Respiratory Rate | 17 | 06/16/2019 9:46 AM | | | | | PST | | + + + + + | Oxygen Saturation | 96% | 06/16/2019 9:46 AM | | | | | PST | | + + + + + | Inhaled Oxygen | - | - | | | Concentration | | | | + + + + + | Weight | 59.9 kg (132 lb) | 06/16/2019 9:46 AM | | | | | PST | | + + + + + | Height | - | - | | + + + + + | Body Mass Index | 23.65 | 04/15/2019 1:50 PM | | | [...] documented as of this encounter Progress Notes Aniya Shankar RN - 06/16/2019 9:30 AM PSTAssessment Patient arrives to clinic walking independently. Patient states she is feeling pretty good today. 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 Patient has has no new complaints. Fever/Chills/Infection: No SOB / Cough: No Fatigue/Dizziness/Lightheaded: Yes, +fatigue Signs/Symptoms Bleeding: No Neuropathy: No Mucositis: No Nausea/Vomiting: No Appetite: Decreased. Diarrhea/Constipation: Yes - How often? Diarrhea x2 (taking imodium which pt states is help ing slow down frequency of BMs) PO Fluid Intake: < 2L. Pt given 1 L NS today in clinic. Urinary Issues: No Rash/Skin/Edema: No Pain: No Lab Gro[place] accessed per protocol. Good blood return noted. Appropriate waste discarded. Meghna portillo drawn and sent. Groshong pulse flushed with 20 mL NS. Patient scheduled for provider vi sit today with Cathy Cornelius. Immunosuppressant Patient reports holding their dose of Tacrolimus today. They report taking 1 mg AM and 0.5 mg pm. This matches the medication list. Confirmed with patient and caregiver that we have t he correct contact number for their medication change calls. Dressing Change Groshong intact to left anterior chest wall without erythema or induration. Dressing remov ed, skin intact without s/s exit site or tunnel infection. Using a Central Line Dressing Ch josef kit, site cleansed with Chloraprep. Skin prep applied prior to dressing application. Biopatch applied with Tegaderm dressing. A piece of gauze was placed over the dressing to ke ep the stitches from poking through. Positive pressure valves changed to each port. All nai mens pulse flushed with 10 mL NS. Patient tolerated procedure without difficulty. Education For education provided, see education tab. Supportive Care 1 L NS given for PO fluid intake < 2L Magnesium Magnesium Sulfate 4 gm in 100 mL NS infused over 2 hours per supportive care orders for a m agnesium level of 1.3. For infusion details, see MAR. Transfusion/Infusion n/a Discharge Line care provided, see Flowsheet for details. Patient was instructed to check out at the f ront desk prior to leaving the clinic. Patient d/c d ambulatory in stable condition. Next appointment scheduled 06/16/19 at 10:30 am. Aniya Shankar RN documented in this e ncounter Plan of Treatment Not on filedocumented as of this encounter Procedures + +--------+ + + + | Procedure Name | Priori | Date/Time | Associated Diagnosis | Comments | | | ty | | | | + +--------+ + + + | [facility] - MAGNESIUM, | Routin | 06/16/2019 | MDS | Results for this | | PLASMA | e | 9:42 AM | (myelodysplastic | procedure are in the | | | | PST | syndrome) ([facility]) S/P | results section. | | | | | cord blood | | | | | | transplantation | | + +--------+ + + + | [facility] - PHOSPHORUS, | Routin | 06/16/2019 | MDS | Results for this | | PLASMA | e | 9:42 AM | (myelodysplastic | procedure are in the | | | | PST | syndrome) ([facility]) S/P | results section. | | | | | cord blood | | | | | | transplantation | | + +--------+ + + + | [facility] - LDH TOTAL, | Routin | 06/16/2019 | MDS | Results for this | | PLASMA | e | 9:42 AM | (myelodysplastic | procedure are in the | | | | PST | syndrome) ([facility]) S/P | results section. | | | | | cord blood | | | | | | transplantation | | + +--------+ + + + | CBC AND AUTO DIFF | Routin | 06/16/2019 | MDS | Results for this | | | e | 9:42 AM | (myelodysplastic | procedure are in the | | | | PST | syndrome) ([facility]) S/P | results section. | | | | | cord blood | | | | | | transplantation | | + +--------+ + + + | VERITO-LORENZO VIRUS | Routin | 06/16/2019 | MDS | Results for this | | PCR, PLASMA | e | 9:42 AM | (myelodysplastic | procedure are in the | | | | PST | syndrome) ([facility]) | results section. | + +--------+ + + + | [facility] - COMPLETE | Routin | 06/16/2019 | MDS | Results for this | | METABOLIC SET | e | 9:42 AM | (myelodysplastic | procedure are in the | | | | PST | syndrome) ([facility]) S/P | results section. | | | | | cord blood | | | | | | transplantation | | + +--------+ + + + | [facility] CBC W | Routin | 06/16/2019 | MDS | Results for this | | DIFFERENTIAL | e | 9:42 AM | (myelodysplastic | procedure are in the | | | | PST | syndrome) ([facility]) S/P | results section. | | | | | cord blood | | | | | | transplantation | | + +--------+ + + + | CMV PCR | Routin | 06/16/2019 | MDS | Results for this | | QUANTITATION, PLASMA | e | 9:42 AM | (myelodysplastic | procedure are in the | | | | PST | syndrome) ([facility]) S/P | results section. | | | | | cord blood | | | | | | transplantation | | + +--------+ + + + | TACROLIMUS, WHOLE | Routin | 06/16/2019 | MDS | Results for this | | BLOOD | e | 9:42 AM | (myelodysplastic | procedure are in the | | | | PST | syndrome) ([facility]) S/P | results section. | | | | | cord blood | | | | | | transplantation | | + +--------+ + + + | HUMAN HERPES VIRUS 6 | Routin | 06/16/2019 | MDS | Results for this | | PCR (PLASMA OR CSF) | e | 9:42 AM | (myelodysplastic | procedure are in the | | | | PST | syndrome) ([facility]) | results section. | + +--------+ + + + documented in this encounter Results CBC AND AUTO DIFF (06/16/2019 9:42 AM PST) + + + + + + | Component | Value | Ref Range | Performed | Pathologist | | | | | At | Signature | + + + + + + | WHITE CELL | 2.87 (L) | 3.50 - 10.80 | [facility] | | | COUNT | | K/cu mm | LABORATORY | | | | | | SERVICES, | | | | | | [facility] + | | | | | | [facility] | | + + + + + + | RED CELL | 3.46 (L) | 4.00 - 5.20 | [facility] | | | COUNT | | M/cu mm | LABORATORY | | | | | | SERVICES, | | | | | | [facility] + | | | | | | [facility]ALING | | + + + + + + | HEMOGLOBIN | 9.9 (L) | 12.0 - 16.0 | [facility] | | | | | g/dL | LABORATORY | | | | | | SERVICES, | | | | | | [facility] + | | | | | | [facility]ALING | | + + + + + + | HEMATOCRIT | 31.0 (L) | 36.0 - 46.0 % | [facility] | | | | | | LABORATORY | | | | | | SERVICES, | | | | | | [facility] + | | | | | | [facility]ALING | | + + + + + + | MCV | 89.6 | 80.0 - 100.0 fL | [facility] | | | | | | LABORATORY | | | | | | SERVICES, | | | | | | [facility] + | | | | | | [facility]ALING | | + + + + + + | MCHC | 31.9 (L) | 32.0 - 36.0 | [facility] | | | | | g/dL | LABORATORY | | | | | | SERVICES, | | | | | | [facility] + | | | | | | [facility]ALING | | + + + + + + | RDW SD | 54.4 (H) | 35.1 - 46.3 fL | [facility] | | | | | | LABORATORY | | | | | | SERVICES, | | | | | | [facility] + | | | | | | [facility]ALING | | + + + + + + | PLATELET | 107 (L)Comment: Few | 150 - 400 K/cu | [facility] | | | COUNT | platelet clumps present. | mm | LABORATORY | | | | Macroplatelets present. | | SERVICES, | | | | [...] + + + + | NEUTROPHIL | 47.4 (L) | 50.0 - 70.0 % | [facility] | | | % | | | LABORATORY | | | | | | SERVICES, | | | | | | [facility] | [facility] + | | | | | | [facility]ALING | | + + + + + + | LYMPHOCYTE | 18.8 | 18.0 - 42.0 % | [facility] | | | % | | | LABORATORY | | | | | | SERVICES, | | | | | | [facility] | [facility] + | | | | | | [facility]ALING | | + + + + + + | MONOCYTE % | 19.9 (H) | 3.5 - 9.0 % | [facility] | | | | | | LABORATORY | | | | | | SERVICES, | | | | | | [facility] + | | | | | | [facility]ALING | | + + + + + + | EOS % | 12.9 (H) | 1.0 - 3.0 % | [facility] | | | | | | LABORATORY | | | | | | SERVICES, | | | | | | [facility] | [facility] + | | | | | | [facility]ALING | | + + + + + + | BASO % | 0.3 | 0.0 - 2.0 % | [facility] [...] + + + + | NEUTROPHIL | 1.36 (L) | 1.80 - 7.70 | [facility] | | | # | | K/cu mm | LABORATORY | | | | | | SERVICES, | | | | | | [facility] | [facility] + | | | | | | HEALING | | + + + + + + | NEUTROPHIL | 1.36 (L) | 1.80 - 7.70 | [facility] | | | # Prelim | | K/cu mm | LABORATORY | | | | | | SERVICES, | | | | | | [facility] | [facility] + | | | | | | [facility]ALING | | + + + + + + | LYMPHOCYTE | 0.54 (L) | 1.00 - 4.80 | [facility] | | | # | | K/cu mm | LABORATORY | | | | | | SERVICES, | | | | | | [facility] | [facility] + | | | | | | [facility]ALING | | + + + + + + | MONOCYTE # | 0.57 | 0.10 - 0.90 | [facility] | | | | | K/cu mm | LABORATORY | | | | | | SERVICES, | | | | | | [facility] | [facility] + | | | | | | HEALING | | + + + + + + | EOS # | 0.37 | 0.00 - 0.50 | [facility] | [...] | + + + + + | [facility] | [address] | [place] [address] | | | SERVICES, [facility] | | | | | [facility] + [facility]ALING | | | | + + + + + [facility] - MAGNESIUM, PLASMA (06/16/2019 9:42 AM PST) + +---------+ + + + [...] LABORATORY | [address] | [place] [address] | | | SERVICES, [facility] | | [facility] | [facility] + [facility] | | | | + + + + + [facility] - PHOSPHORUS, PLASMA (06/16/2019 9:42 AM PST) + +-------+ + + + [...] | | | | | | [facility]ENTER [facility] | | | | | [...] LABORATORY | [address] | [place] [address] | | | SERVICES, [facility] | | | | | [facility] + HEALING | | | | + + + + + [facility] - COMPLETE METABOLIC SET (06/16/2019 9:42 AM PST) + +---------+ + + + | Component | Value | Ref Range | Performed | Pathologist | | | | | At | Signature | + +---------+ + + + | GLUCOSE, | 109 (H) | 70 - 99 mg/dL | [facility] | | | PLASMA | | | LABORATORY | | | (LAB) | | | SERVICES, | | | | | | [facility] | [facility] | [facility] + | | | | | | HEALING | | + +---------+ + + + | BUN, PLASMA | 13 | 6 - 20 mg/dL | [facility] | | | (LAB) | | | LABORATORY | | | | | | SERVICES, | | | | | | [facility] | [facility] + | | | | | | HEALING | | + +---------+ + + + | CREATININE | 0.90 | 0.60 - 1.10 | [facility] | [...] | | | LABORATORY | | | [facility] | | | SERVICES, | | | [...] +---------+ + + + | SODIUM, | 132 [...] +---------+ + + + | CHLORIDE, | 99 | 97 - 108 mmol/L | [facility] [...] +---------+ + + + | CALCIUM, | 9.2 | 8.6 - 10.2 | [...] +---------+ + + + | ALBUMIN, | 3.7 | 3.5 - 4.7 g/dL | [facility] | | | PLASMA | | | LABORATORY | | | (LAB) | | | SERVICES, | | | | | | [facility] | [facility] | [facility] + | | | | | | HEALING | | + +---------+ + + + | ALK PHOS | 79 | 42 - 98 U/L | [facility] [...] + + + | ALT (SGPT) | 15 | <=60 U/L | [facility] | | | | | | LABORATORY | | | | | | SERVICES, | | | | | | [facility] | | [facility] + | | | | | | HEALING | | + +---------+ + + + | ANION GAP | 12 (H) | 4 - 11 [...] +---------+ + + + | ALBUMIN/BURTON | 1.3 | 0.9 - 2.0 | [facility] | [...] MDRD equation recommended by the National | [facility] | | Kidney Disease Education Program. [...] + + | Performing | Address | City/State/[facility] | Phone Number | | Organization | | | | + + + + + | [facility] | [address] | [place] [address] | | | SERVICES, [facility] | | | | | HEALTH + HEALING | | | | + + + + + [facility] - LDH TOTAL, PLASMA (06/16/2019 9:42 AM PST) + +---------+ + + + | Component | Value | Ref Range | Performed | Pathologist | | | | | At | Signature | + +---------+ + + + | LD TOTAL, | 159 | <=250 U/L | [facility] | | [...] | + + + + + | [facility] | [address] | [place] [address] | | | SERVICES, [facility] | | | | | HE[facility] + HEALING | | | | + + + + + CMV PCR QUANTITATION, PLASMA (06/16/2019 9:42 AM PST) + + + + + [...] | | | characteristics determined by the [facility] | | | Molecular Diagnostic Center. It has not been cleared or approved by | | | the Food and Drug Administration. FDA approval is not required for | | | clinical use of this test, and therefore validation was done as | | | required under the requirements of the Clinical Laboratory Improvement | | | Act of 1988. The [facility] Molecular | | | Diagnostic Center is a fully licensed and/or accredited clinical | | | laboratory under CLIA, CAP, and the [facility]. | | + + + + + + + + | Performing | Address | City/State/Zipcode | Phone Number | | Organization | | | | + + + + + | [facility] | [address] | [place] [address] | | | DIAGNOSTIC | [address] | | | | LABORATORIES | | | | + + + + + TACROLIMUS, WHOLE BLOOD (06/16/2019 9:42 AM PST) + +-------+ + + + [...] | Test performed by immunoassay using [employer] i2000. . | [facility] | | Samples [...] | + + + + + | [facility] | [address] | [place] [address] | | | SERVICES, SPECIAL | [address] | | | | IMM + COAG | | | | + + + + + VERITO-LORENZO VIRUS PCR, PLASMA (06/16/2019 9:42 AM PST) + + + + + [...] we have completed a quantitative polymerase | [facility] | | chain reaction (PCR) based [...] | | performance characteristics determined by the [facility] Molecular | | | Diagnostics Center. It has not been cleared or approved by the Food | | | and Drug Administration. FDA approval is not required for clinical | | | use of this test, and therefore validation was done as required under | | | the requirements of the Clinical Laboratory Improvement Act of 1988. | | | The [facility] is a fully licensed and/or accredited clinical laboratory | | | under CLIA, CAP, and the [facility]. References: 1) | | | Phong et [...] | | real-time polymerase chain reaction. Transfusion 2008;48:[id number]. | | | 4) Bassam BEARDEN, Genny CASAS, Félix I, van keshia Bij W, et al. | | | Frequent monitoring of Verito-Lorenzo virus DNA load in unfractionated | | | whole blood is essential for early detection of posttransplant | | | lymphoproliferative disease in high-risk patients. Blood | | | 2001;97(5):5643-9522. | | + + + + + + + + | Performing | Address | City/State/Zipcode | Phone Number | | Organization | | | | + + + + + | [facility] | [address] | [place] [address] | | | DIAGNOSTIC | [address] | | | | LABORATORIES | | | | + + + + + HUMAN HERPES VIRUS 6 PCR (PLASMA OR CSF) (06/16/2019 9:42 AM PST) + + + + + [...] - [facility] | | | | [place] [address] | | | | | | [phone]. | | | | | | Zeferino [...] A: | | | | | | [employer] | | | | + + + [...] [facility] | [address] | [place], [place] | | | [facility] - [facility] | | [address] | | + + + + + [...] in water IV | New Bag | 06/16/20 | 2 g | | | | (RTU) 2 g 2 g, intravenous, | | 19 10:21 | | | | | ONCE, 1 dose, Cheryl 06/16/19 at | | AM PST | | | | | 1015 | | | | | | + +---------+ +------+------+------+ +---+---+ | | | +---+---+ + +---------+ +-----+---+---+ | magnesium sulfate in water IV | New Bag | 06/16/20 | 2 g | | | | (RTU) 2 g 2 g, intravenous, | | 19 11:21 | | | | | ONCE, 1 dose, Cheryl 06/16/19 at | | AM PST | | | | | 1045 | | | | | | + +---------+ +-----+---+---+ +---+---+ | | | +---+---+ + +---------+ + +---+---+ | sodium chloride (NS) 0.9 % | New Bag | 06/16/20 | 1,000 mL | | | | bolus 1,000 mL 1,000 mL, | | 19 10:21 | | | | | intravenous, NEEDED, Starting | | AM PST | | | | | Cheryl 06/16/19 at 1013, Until Cheryl | | | | | | | 06/16/19 at 2248, decreased po | | | | | | | intake, dizziness | | | | | | + +---------+ + +---+---+ +---+---+ | | | +---+---+ documented in this encounter"
--- OUTSIDE RECORDS SUMMARY | ~2020-03-12 | XMS | Encounter Summary ---
Demographics + + + | Address | [address] | | | [place] [address] | + + + | Home Phone [...] Team Providers + +------+ + | Care Linotyper Name | Role | Phone | + +------+ + | Meredith Sanchez | PCP | | + +------+ + Encounter Details +--------+--------+ + + + | Date | Type | Department | Care Team | Description | +--------+--------+ + + + | 05/22/ | Travel | | | | | [...]
--- OUTSIDE RECORDS SUMMARY | ~2020-03-12 | XMS | Encounter Summary ---
Demographics + + + | Address | [address] | | | [place] [address] | + + + | Home Phone [...] + + | Author | [facility] | + + + | Organization | [facility] | + + + | Address | Unknown | + + + | Phone | Unavailable | + + + Support + + +---------+ + | Name | Relationship | Address | Phone | + + +---------+ + | Claudia Cota | ECON | Unknown | | + + +---------+ + Care Team Providers + +------+ + | Care Laborer [place] Name | Role | Phone | + +------+ + | Meredith Sanchez | PCP | | + +------+ + Reason for Visit + +--------+ + | Reason | Onset | Comments | | | Date | | + +--------+ + | Procedure | 05/24/ | | | | 2018 | | + +--------+ + Other (Routine) + +--------+ + + + + | Status | Reason | Specialty | Diagnoses / | Referred By | Referred To | | | | | Procedures | Contact | Contact | + +--------+ + + + + | Authorized | | Hematology & | Diagnoses | Tod, | Tod, | | | | Oncology / | | Sam, MAILHOUSE OPERATOR | Sam, MAILHOUSE OPERATOR | | | | Hematology | Myelodysplas | [address] | [address] | | | | Malignancy | tic | [place] | | | | | syndrome, | Rd | Rd [place], | | | | | unspecified | [place], [place] | [place] | | | | | Procedures | [address] | [address] | | | | | RI BONE | Phone: | Phone: | | | | | MARROW; | [phone] | [phone] | | | | | ASPIRATION | Fax: | Fax: | | | | | ONLY RI | [phone] | [phone] | | | | | BONE MARROW | | | | | | | BX, | | | | | | | NEEDLE/TROCA | | | | | | | R RI DX | | | | | | | BONE MARROW | | | | | | | BX & ASPIR | | | + +--------+ + + + + Encounter Details +--------+---------+ + + + | Date | Type | Department | Care Team | Description | +--------+---------+ + + + | 05/25/ | Office | [facility] | Cathy Cornelius | 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 | [facility] | M, MOTOR LODGE CLERK [address]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) | | | | [facility] [address] | (Primary Dx) | | | | [facility] | [place], [place] | | | | | [facility] and Healing, | [address] | | | | | Building [address] | [phone] | | | | | [place], [place] | | | | | | [address] | | | | | | [phone] | | | +--------+---------+ + + + [...] Instructions Patient Instructions Cathy Cornelius NP - 05/25/2019 12:45 PM PST Post Bone Marrow Biopsy Instructions 1. Keep your dressing dry for the next 24 hours; no shower or bath until tomorrow. 2. If you notice any signs of infection at the biopsy site (redness, tenderness, drainage) , please call the Triage nurse at ([phone]) or BMT person on-call ) after hours. 3. If you received medications such as ativan or morphine, or any other sedating medi cations, you may not drive for at least 8 hours. documented in this encounter Progress Notes Cathy Cornelius NP - 05/25/2019 12:45 PM PST 05/25/19 Procedure Note Procedure: Bone marrow aspirate and biopsy w/ medications for anxiolysis Indications: MDS Team Pause: At 1300, prior to the beginning of the procedure, the team paused to verify the patient's identity, as well as the procedure to be performed and the correct side/site. All equipment required was ready and available. The patient was positioned appropriately. Description: Written consent for bone marrow aspirate and biopsy was obtained from the [facility] following a brief discussion regarding the risks and benefits of the procedure. The [facility] was then premedicated for anxiolysis with 1mg PO lorazepam. The skin on left posterior i liac crest was cleansed with betadine and draped in a sterile manner. Xylocaine 1% was used for local anesthesia. A scalpel was used to enlarge the insertion site.The aspirate needle w as inserted and the first aspirate was noted to have spicules, which was submitted for morph ology studies. A second aspirate was obtained in a heparinized syringe and submitted for FIS H, flow cytometry and cytogenetics. A third aspirate was obtained in a non-heparinized syrin ge and submitted for genetrails. A final aspirate was obtained in a non-heparinized syringe and submitted for VNTR. The aspirate needle was then removed and a Jamshidi needle was inserted. A core biopsy arabella uring approximately 1cm was obtained and submitted for morphology studies. Hemostasis was achieved and a pressure dressing was applied. The patient was observed for 2 0 minutes post-procedure for signs of bleeding. Pt tolerated the procedure well without comp lications. The results of this procedure will take approximately 7 to 10 days for full analysis. Espinoza jaxon, preliminary results should be available within the next 24 to 48 hours. Lab Results Lab Test Name Results Date/Time WBC 1.56 05/24/19 RBC 2.51 05/24/19 HB 7.3 05/24/19 HCT 20.5 05/24/19 MCV 81.7 05/24/19 MCHC 35.6 05/24/19 RDW 39.9 05/24/19 PLT 14 05/24/19 NEUTROPERC 32.7 05/24/19 NEUTROPERC 78.9 05/19/19 LYMPHPERC 19.2 05/24/19 LYMPHPERC 7.0 05/19/19 MONOPERC 34.0 05/24/19 MONOPERC 8.8 05/19/19 EOSPERC 11.5 05/24/19 EOSPERC 2.6 05/19/19 BASOPERC 0.0 05/24/19 BASOPERC 0.0 05/19/19 ATYPICALPCT 1.1 05/16/19 NEUTROPHILCO 0.51 05/24/19 NEUTROPHILCO 4.34 05/19/19 MONOCYTECO 0.53 05/24/19 MONOCYTECO 0.48 05/19/19 EOSCO 0.18 05/24/19 EOSCO 0.14 05/19/19 BASOPHILCO 0.00 05/24/19 BASOPHILCO 0.00 05/19/19 Cathy Cornelius NP [facility] [address] [facility] Mailcode: [place] [address] [facility] DEPARTMENT: [id number] Place of Service:- Inpatient Date of Service: 05/25/19 documented in thi s encounter Plan of Treatment Not on filedocumented as of this encounter Procedures + +--------+ + + + | Procedure Name | Priori | Date/Time | Associated Diagnosis | Comments | | | ty | | | | + +--------+ + + + | RI DX BONE MARROW BX | Routin | 05/24/2019 | MDS | | | & ASPIR | e | 11:34 AM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| PST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) | | + +--------+ + + + documented in this encounter Visit Diagnoses + + | Diagnosis | + + | MDS (myelodysplastic syndrome) (HCC) - Primary Myelodysplastic syndrome, unspecified | + + documented in this encounter"
--- OUTSIDE RECORDS SUMMARY | ~2020-03-12 | XMS | Encounter Summary ---
Demographics + + + | Address | [address] | | | [place] [address] | + + + | Home Phone | | + + + | Preferred Language | Unknown | + + + | Marital Status | Single | + + + | Buddhist Affiliation | NRP | + + + [...] Providers + +------+ + | Care Credit Compliance Officer Name | Role | Phone | + +------+ + | Meredith Sanchez | PCP | | + +------+ + Encounter Details +--------+ + + + + | Date | Type | Department | Care Team | Description | +--------+ + + + + | 05/14/ | Pharmacy | Outpatient [facility] | | | | 2019 | Visit | [facility] | | | | | | [address] | | | | | | [address] [place], [place] | | | | | | [address] | | | | | | [phone] | | | +--------+ + + + [...]
--- OUTSIDE RECORDS SUMMARY | ~2020-03-12 | XMS | Encounter Summary ---
Demographics + + + | Address | [address] | | | [place] [address] | + + + | Home Phone [...] Team Providers + +------+ + | Care Meat Dresser Name | Role | Phone | + +------+ + | Meredith Sanchez | PCP | | + +------+ + Encounter Details +--------+ + + + + | Date | Type | Department | Care Team | Description | +--------+ + + + + | 04/15/ | Pharmacy | Pharmacy @ [facility] | | | | 2019 | Visit | [address] | | | | | | Reji Call[address] Mailcode: | | | | | | [facility] | | | | | | and Healing, | | | | | | [address] | | | | | | [place], [place] | | | | | | [address] | | | +--------+ + + + [...]
--- OUTSIDE RECORDS SUMMARY | ~2020-03-12 | XMS | Encounter Summary ---
Demographics + + + | Address | [address] | | | [place] [address] | + + + | Home Phone [...] Team Providers + +------+ + | Care Vascular Nurse Name | Role | Phone | + +------+ + | Meredith Sanchez | PCP | | + +------+ + Encounter Details +--------+--------+ + + + | Date | Type | Department | Care Team | Description | +--------+--------+ + + + | 11/02/ | Travel | | | | | [...]
--- OUTSIDE RECORDS SUMMARY | ~2020-03-12 | XMS | Clinical Summary ---
Demographics + + + | Address | [address] | | | [place] [address] | + + + | Home Phone | | + + + | Preferred Language | Unknown | + + + | Marital Status | | + + + | Church Affiliation | Unknown | + + + | Race | White | + + + | Ethnic Group | Not or | + + + Author + + + | Author | [facility] | | | and [place] | + + + | Organization | [facility] | | | and [place] | + + + | Address | Unknown | + + + | Phone | Unavailable | + + + Support + + + + + | Name | Relationship | Address | Phone | + + + + + | Claudia Cota | ECON | [address] | | | | | [place] | | | | | [address] | | + + + + + Care Team Providers + +------+ + | Care Pig Iron Loader Name | Role | Phone | + +------+ + | Meredith Sanchez | PCP | | | PA | | | + +------+ + Allergies Not on File Medications Not on file Active Problems Not on file Social History + +-------+ +--------+------+ | Tobacco [...] on file | | + + + Last Filed Vital Signs Not on file Plan of Treatment + + + + + | Health Maintenance | Due Date | Last | Comments | | | | Done | | + + + + + | Hepatitis C | | | | | Screening | 5 | | | + + + + + | Vaccine: | | | | | Dtap/Tdap/Td (1 - | 4 | | | | Tdap) | | | | + + + + + | Cervical Cancer | | | | | Screening (Pap) | 5 | | | + + + + + | Colorectal Cancer | | | | | Screening | 5 | | | | (Colonoscopy) | | | | + + + + + | Vaccine: Zoster (1 | | | | | of 2) | 5 | | | + + + + + | Breast Cancer | | | | | Screening | 0 | | | + + + + + | Vaccine: Influenza | | 07/28/19 | | | (#1) | 0 | 20 | | + + + + + Results Not on filefrom Last 3 Months Insurance +-------+--------+ +--------+ + +------+ | Payer | Benefi | Subscriber | Effect | Phone | Address | Type | | | t Plan | ID | yamileth | | | | | | / | | Dates | | | | | | Group | | | | | | +-------+--------+ +--------+ + +------+ | [employer] | [employer] | [id number] | 06/29/19 | [phone] | [address] | PPO | | | FIRST | | 20-Pre | 9 | [phone] | | | | CHOICE | | sent | | [place], | | | | | | | | [place] [address] | | +-------+--------+ +--------+ + +------+ + +--------+ +--------+ + + | Guarantor Name | Accoun | Relation to | Date | Phone | Billing Address | | | t Type | Patient | of | | | | | | | | | | + +--------+ +--------+ + + | Nona Hopper | Person | Self [birth year] | [address] | | | al/Fam | | 1966 | [phone] | [address] [place], [place] | | | [place] | | | [address] (Home) | [address] | + +--------+ +--------+ + + | Nona Hopper | Person | Self [birth year] | [address] | | | al/Fam | | 1966 | [phone] | [address] [place] | | | [place] | | | 9 ([place]) | [address] | + +--------+ +--------+ + +"
--- OUTSIDE RECORDS SUMMARY | ~2020-03-12 | XMS | Encounter Summary ---
Demographics + + + | Address | [address] | | | [place] [address] | + + + | Home Phone | | + + + | Preferred Language | Unknown | + + + | Marital Status | Single | + + + | Buddhism Affiliation | NRP | + + + | Race | White | + + + | Ethnic Group | Not or | + + + Author + + + | Author | [facility] | + + + | Organization | [facility] | + + + | Address | Unknown | + + + | Phone | Unavailable | + + + Support + + +---------+ + | Name | Relationship | Address | Phone | + + +---------+ + | Claudia Cota | ECON | Unknown | | + + +---------+ + Care Team Providers + +------+ + | Care Occupational Physician Name | Role | Phone | + +------+ + | Meredith Sanchez | PCP | | + +------+ + Encounter Details +--------+ + + + + | Date | Type | Department | Care Team | Description | +--------+ + + + + | 10/26/ | Printing Machine Operator Tape Rules | 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) | | | | [place] [address] | [place], | (Primary Dx); S/P | | | | [facility] for | [place] [address] | cord blood | | | | Health and Healing, | [phone] | transplantation | | | | [address] | | | | | | [place], [place] | | | | | | [address] | | | | | | [phone] | | | +--------+ + + + [...] on filedocumented as of this encounter Results LEUKEMIA/LYMPHOMA MARKERS - BONE MARROW (11/03/2019 8:30 AM PDT) + + + + + + | Component | Value | Ref Range | Performed | Pathologist | | | | | At | Signature | + + + + + + | Final | Bone marrow aspirate, | | [facility] | Electronically | | Pathologic | clot section, core | | DEPARTMENT | signed by | | Diagnosis | biopsy and peripheral | | OF | Sb W | | | blood: - Normocellular | | PATHOLOGY | MD Amada,PhD | | | (40%) marrow with | | | on 11/07/2019 at | | | trilineage hematopoiesis | | | 10:30 AM | | | - No definitive | | | | | | morphologic or | | | | | | immunophenotypic | | | | | | evidence of | | | | | | myelodysplastic syndrome | | | | | | - T-cells without | | | | | | antigen aberrancy and | | | | | | increased CD4:CD8 ratio | | | | | | (16:1) - Lymphopenia, | | | | | | left-shifted myeloid | | | | | | series, normocytic | | | | | | anemia, and | | | | | | thrombocytopeniaComment: | | | | | | Mild dyspoietic changes | | | | | | are noted (most | | | | | | prominent in | | | | | | megakaryocytes), and | | | | | | correlation with | | | | | | concurrent molecular and | | | | | | cytogenetic/FISH | | | | | | studies is required to | | | | | | entirely exclude a | | | | | | low-level myeloid | | | | | | neoplasm. The | | | | | | significance of the | | | | | | elevated CD4:CD8 ratio | | | | | | in T cells is not clear. | | | | | | This finding is | | | | | | non-specific and can be | | | | | | seen in reactive and | | | | | | neoplastic conditions; | | | | | | it was previously | | | | | | elevated (although not | | | | | | to the same degree) in | | | | | | the most recent prior | | | | | | bone marrow biopsy | | | | | | (07/28/2019). Continued | | | | | | attention on follow-up | | | | | | is recommended. 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 (day 0 = | | | | | | 04/22/2019).CBC:Resulted | | | | | | Date and Time: | | | | | | 11/03/2019 0824 PDT | | | | | | | | | | | | | | | | | | Component Result | | | | | | Reference Range WHITE | | | | | | CELL COUNT 5.01 | | | | | | 3.50-10.80 K/cu mm RED | | | | | | CELL COUNT 3.27 | | | | | | 4.00-5.20 M/cu mm | | | | | | HEMOGLOBIN 9.8 | | | | | | 12.0-16.0 g/dL | | | | | | HEMATOCRIT 32.1 | | | | | | 36.0-46.0 % MCV 98.2 | | | | | | 80.0-100.0 fL MCHC | | | | | | 30.5 32.0-36.0 g/dL | | | | | | RDW SD 59.7 35.1-46.3 | | | | | | fL PLATELET COUNT | | | | | | 110 150-400 K/cu mm MPV | | | | | | 9.7-12.3 fL NRBC% | | | | | | 0.4 0.0-0.3 % NRBC# | | | | | | 0.02 0.00-0.02 K/cu mm | | | | | | PERIPHERAL BLOOD | | | | | | DIFFERENTIAL | | | | | | | | | | | | Component | | | | | | Result Reference | | | | | | Range NEUTROPHIL % 60.4 | | | | | | 50.0-70.0 % LYMPHOCYTE | | | | | | % 17.6 18.0-42.0 % | | | | | | MONOCYTE % 15.4 | | | | | | 3.5-9.0 % EOS % 1.0 | | | | | | 1.0-3.0 % BASO % 0.2 | | | | | | 0.0-2.0 % IG% 5.4 | | | | | | 0.0-1.0 % NEUTROPHIL # | | | | | | 3.03 1.80-7.70 K/cu mm | | | | | | LYMPHOCYTE # 0.88 | | | | | | 1.00-4.80 K/cu mm | | | | | | MONOCYTE # 0.77 | | | | | | 0.10-0.90 K/cu mm EOS # | | | | | | 0.05 0.00-0.50 K/cu mm | | | | | | BASO # 0.01 0.00-0.10 | | | | | | K/cu mm IG# 0.27 | | | | | | 0.00-0.10 K/cu mm | | | | | | PERIPHERAL BLOOD | | | | | | MORPHOLOGY:WBC: | | | | | | Granulocytes show normal | | | | | | nuclear lobation and | | | | | | cytoplasmic granularity | | | | | | and are present in a | | | | | | left-shifted myeloid | | | | | | series. Monocytes appear | | | | | | mature. No blasts are | | | | | | identified. The | | | | | | lymphocytes are | | | | | | morphologically | | | | | | heterogeneous. RBC: | | | | | | Anisopoikilocytosis. | | | | | | Mild polychromasia. Rare | | | | | | nucleated red cells. | | | | | | Platelets: Unremarkable. | | | | | | Normal granularity. | | | | | | BONE MARROW ASPIRATE | | | | | | SMEARS:Quality: Adequate | | | | | | particles; good | | | | | | quality. Blasts: Not | | | | | | increased. Myeloids: | | | | | | Complete maturation. No | | | | | | significant dysplasia. | | | | | | Erythroids: Complete | | | | | | maturation. Rare forms | | | | | | with megaloblastoid | | | | | | changes. Megakaryocytes: | | | | | | Present. Occasional | | | | | | small hypolobated forms. | | | | | | Rare megakaryocytes | | | | | | with discrete separation | | | | | | of lobes. Lymphocytes: | | | | | | Not increased. No | | | | | | aggregates identified. | | | | | | Plasma cells: Not | | | | | | increased. BONE MARROW | | | | | | DIFFERENTIAL: | | | | | | Preparation: Aspirate | | | | | | smears. Myeloids: 60% | | | | | | Erythroids: 31% Blasts: | | | | | | 1% Lymphocytes: 7% | | | | | | Plasma cells: 1% M:E | | | | | | Ratio: 2:1 Total cells | | | | | | counted: 500 BONE MARROW | | | | | | BIOPSY/CLOT | | | | | | SECTION:Quality: | | | | | | Adequate with aspiration | | | | | | artifact. Clot section | | | | | | contains particles. | | | | | | Cellularity: Variable | | | | | | between clot section and | | | | | | core biopsy, averages | | | | | | 40% overall. Myeloids: | | | | | | Unremarkable, full | | | | | | maturation. Erythroids: | | | | | | Unremarkable, full | | | | | | maturation. | | | | | | Megakaryocytes: Rare | | | | | | hyperchromatic forms. | | | | | | Infiltrate: Mildly | | | | | | increased histiocytes. | | | | | | FLOW CYTOMETRIC | | | | | | ANALYSIS: % of | | | | | | total WBC (CD45+)Myeloid | | | | | | Blasts <1 Monocytes 7 | | | | | | Lymphocytes 8 | | | | | | % of LymphocytesB-cells | | | | | | 25 T-cells 53 NK-cells | | | | | | 22 | | | | | | RatioKappa/Lambda | | | | | | polyclonal CD4/CD8 16:1 | | | | | | Summary: Unremarkable | | | | | | myeloid blast | | | | | | immunophenotype and | | | | | | unremarkable pattern of | | | | | | myelomonocytic antigen | | | | | | expression. T-cells do | | | | | | not show definitive | | | | | | antigen aberrancy and | | | | | | have an elevated CD4:CD8 | | | | | | ratio. Antibodies | | | | | | TestedCD4 CD5 CD8 CD10 | | | | | | CD13 CD14 CD16 CD19 CD33 | | | | | | CD34 CD45 CD56 CD64 | | | | | | CD117 sKappa sLambda | | | | | | HLA-DR CD2 CD3 CD4 | | | | | | CD5 CD7 CD8 CD25 CD34 | | | | | | CD45 CD56 | | | | | | IMMUNOHISTOCHEMICAL | | | | | | STAINS: IHC stains were | | | | | | performed on the core | | | | | | biopsy. CD34 and CD117 | | | | | | stain singly scattered | | | | | | blasts that account for | | | | | | less than 5% of total | | | | | | cellularity; CD117 also | | | | | | stains singly scattered, | | | | | | non-spindled mast | | | | | | cells. CYTOGENETIC AND | | | | | | FISH STUDIES: | | | | | | Performed, see separate | | | | | | report. MOLECULAR | | | | | | STUDIES: Performed, see | | | | | | separate report. | | | | + + + + + + | Gross | Both the clot and core | | [facility] | | | Description | biopsy were fixed in | | DEPARTMENT | | | | formalin. The core | | OF | | | | biopsy was decalcified. | | PATHOLOGY | | | | A Rothman-stained | | | | | | peripheral blood smear | | | | | | and bone marrow aspirate | | | | | | smears were prepared. | | | | | | B: Bone Marrow Clot - | | | | | | 1.0 x 1.0 x 0.1 cmC. | | | | | | Bone Marrow Biopsy - 1.8 | | | | | | L x 0.3 D cmRML | | | | + + + + + + | Ancillary | Analyte specific | | [facility] | | | Information | reagents are used in | | LABORATORY | | | | many laboratory tests | | SERVICES, | | | | necessary for standard | | CENTER FOR | | | | medical care. This test | | HEALTH + | | | | was developed and its | | HEALING | | | | performance | | | | | | characteristics | | | | | | determined by [facility] | | | | | | laboratories. It has not | | | | | | been cleared or | | | | | | approved by the US Food | | | | | | and Drug Administration | | | | | | (FDA). FDA does not | | | | | | require this test to go | | | | | | through premarket FDA | | | | | | review. This test is | | | | | | used for clinical | | | | | | purposes. It should not | | | | | | be regarded as | | | | | | investigational or for | | | | | | research. This | | | | | | laboratory is certified | | | | | | under the Clinical | | | | | | Laboratory Improvement | | | | | | Amendments (CLIA) as | | | | | | qualified to perform | | | | | | high complexity clinical | | | | | | laboratory testing. If | | | | | | immunohistochemical | | | | | | analysis (IHC) was | | | | | | performed concurrently | | | | | | with flow cytometry, the | | | | | | IHC was done to allow | | | | | | assessment of | | | | | | immunoarchitecture, | | | | | | which is not supplied by | | | | | | flow cytometry. Flow | | | | | | cytometry enables better | | | | | | assessment of clonality | | | | | | and antigen aberrancy | | | | | | than IHC. Appropriate | | | | | | positive controls and/or | | | | | | negative controls were | | | | | | used for all stains, | | | | | | including | | | | | | immunohistochemical | | | | | | stains, special stains, | | | | | | and in situ | | | | | | hybridization, and these | | | | | | reacted appropriately. | | | | + + + + + + + + | Specimen | + + | Bone marrow - Blood | | (substance) | + + | Bone marrow | | structure (body | | structure) | + + | Bone marrow | | structure (body | | structure) | + + | Blood (substance) | + + + + + + + | Performing | Address | City/State/Zipcode | Phone Number | | Organization | | | | + + + + + | [facility] | [address] | [place] [address] | | | PATHOLOGY | [address] | | | + + + + + | [facility] | [address] | [place] [address] | | | [facility] | | | | | HEALTH + HEALING | | | | + + + + + CYTOGENETICS BONE MARROW CHROMOSOME ANALYSIS (W/FISH) (11/03/2019 7:36 AM PDT) + + + + + + | Component | Value | Ref Range | Performed | Pathologist | | | | | At | Signature | + + + + + + | Chromosome | Normal | | [facility] | | | Results | | | DIAGNOSTIC | | | | | | | | | | | | LABORATORIE | | | | | | S | | + + + + + + | Impressions | All cells | | [facility] | | | and | femaleKARYOTYPE: | | DIAGNOSTIC | | | Recommendat | 46,XX[20]All twenty | | | | | ions | metaphase cells examined | | LABORATORIE | | | | were female.FISH was | | S | | | | performed with probes | | | | | | for X and Y, as listed | | | | | | below. All cells had | | | | | | two X signals, XX, | | | | | | consistent with female | | | | | | cells.Thank you very | | | | | | much for your referral. | | | | | | If you have any | | | | | | questions regarding this | | | | | | report or future | | | | | | cytogenetic testing | | | | | | issues, please feel free | | | | | | to contact us.Reason | | | | | | for Referral: mds, post | | | | | | t/x (hx male and female | | | | | | donors)The clinical | | | | | | interpretation was made | | | | | | by the clinical | | | | | | zyglo inspector. | | | | + + + + + + | Number of | 2 | | [facility] | | | Cells | | | DIAGNOSTIC | | | Karyotpyed | | | | | | | | | LABORATORIE | | | | | | S | | + + + + + + | Number of | 20 | | [facility] | | | Cells | | | DIAGNOSTIC | | | Analyzed: | | | | | | | | | LABORATORIE | | | | | | S | | + + + + + + | Number of | N/A | | [facility] | | | Cells | | | DIAGNOSTIC | | | Counted: | | | | | | | | | LABORATORIE | | | | | | S | | + + + + + + | Banding | 450 | | [facility] | | | Level: | | | DIAGNOSTIC | | | | | | | | | | | | LABORATORIE | | | | | | S | | + + + + + + | Banding | GTW | | [facility] | | | Method: | | | DIAGNOSTIC | | | | | | | | | | | | LABORATORIE | | | | | | S | | + + + + + + | DISCLAIMER | This test was developed | | [facility] | | | | and its performance | | DIAGNOSTIC | | | | characteristics | | | | | | determined by the [facility] | | LABORATORIE | | | | [facility] | | S | | | | Laboratories. It has | | | | | | not been cleared or | | | | | | approved by the Food and | | | | | | Drug Administration. | | | | | | FDA approval is not | | | | | | required for the | | | | | | clinical use of the | | | | | | test, and therefore | | | | | | validation was done as | | | | | | required under the | | | | | | requirements of the | | | | | | Clinical Laboratory | | | | | | Improvement Act of 1988 | | | | | | (CLIA). The [facility] | | | | | | Diagnostics | | | | | | Laboratories are fully | | | | | | licensed by the state of | | | | | | [place] under CLIA and | | | | | | are accredited by the | | | | | | [employer] | | | | | | [employer] ([employer]). | | | | | | Security Guard: | | | | | | Tayo Singletary, | | | | | | M.D., | | | | | | Ph.D.Electronically | | | | | | reviewed and signed | | | | | | by:Chuy Acuna, PhD, | | | | | | FACMGClinical | | | | | | Surveyor Hydrographic Clinical | | | | | | Molecular | | | | | | Geneticist11/08/2019 at | | | | | | 3:04 PMReviewed and | | | | | | electronically signed by | | | | | | CONG CINTRON, | | | | | | ,FACMG11/08/2019 4:15 | | | | | | PM | | | | + + + + + + | Cytogenetic | Normal | | [facility] | | | s Bone | | | DIAGNOSTIC | | | Marrow | | | | | | Chrom | | | LABORATORIE | | | Analysis | | | S | | | (W/FISH) | | | | | + + + + + + + + | Specimen | + + | Bone marrow - Bone | | marrow structure | | (body structure) | + + + + + + + | Performing | Address | City/State/Zipcode | Phone Number | | Organization | | | | + + + + + | [facility] | [address] | [place] [address] | | | DIAGNOSTIC | [address] [...]
--- OUTSIDE RECORDS SUMMARY | ~2020-03-12 | XMS | Encounter Summary ---
Demographics + + + | Address | [address] | | | [place] [address] | + + + | Home Phone [...] Providers + +------+ + | Care Supervisor Advice Name | Role | Phone | + +------+ + | Meredith Sanchez | PCP | | + +------+ + Encounter Details +--------+ + + + + | Date | Type | Department | Care Team | Description | +--------+ + + + + | 07/21/ | Pharmacy | Pharmacy @ [facility] | | | | 2019 | Visit | [address] | | | | | | [address] Mailcode: | | | | | | [facility] | | | | | | and Healing, | | | | | | [address] | | | | | | [place], [place] | | | | | | [address] | | | +--------+ + + + [...]
--- OUTSIDE RECORDS SUMMARY | ~2020-03-12 | XMS | Encounter Summary ---
Demographics + + + | Address | [address] | | | [place] [address] | + + + | Home Phone | | + + + | Preferred Language | Unknown | + + + | Marital Status | Single | + + + | Adventist Affiliation | NRP | + + + | Race | White | + + + | Ethnic Group | Not or | + + + Author + + + | Author | [facility] | + + + | Organization | [facility] | + + + | Address | Unknown | + + + | Phone | Unavailable | + + + Support + + +---------+ + | Name | Relationship | Address | Phone | + + +---------+ + | Claudia Cota | ECON | Unknown | | + + +---------+ + Care Team Providers + +------+ + | Care Post Manager Name | Role | Phone | + +------+ + | Meredith Sanchez | PCP | | + +------+ + Reason for Visit Diagnostic Testing (Routine) +--------+--------+ + + + [...] | | syndrome) | [place] | Adam | | | | | (HCC) | [place], [place] | [facility], 2nd | | | | | Procedures | [address] | floor | | | | | TRANSTHORACI | Phone: | [place], [place] | | | | | C | [phone] | [address] | | | | | ECHOCARDIOGR | Fax: | Phone: | | | | | AM, ADULT | [phone] | [phone] | +--------+--------+ + + + + Encounter Details +--------+ + + + + | Date | Type | Department | Care Team | Description | +--------+ + + + + | 03/10/ | Hospital | Cardiac | | | | 2019 | Encounter | Non-Invasive Testing | | | | | | at [facility] | | | | | | [address] | | | | | | [address] | | | | | | [facility], [facility] | | | | | | floor [place], [place] | | | | | | [address] | | | | | | [phone] | | | +--------+ + + + [...] | ADULT | | PDT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) | results section. | + +--------+ + [...] formed At | + +---- + | [facility] | [facility] DEPT [facility] | | [facility] Adult Echocardiography Laboratory [address] CAR DIOLOGY | | [place], [place] [address] Ph: | | | Pt Name: ANALY HOPPER | | | Study Date/Time 03/10/2019 / 1:59:36 PMMRN: [id number] | | | Most recent prior: 0Acc #: [id number] | | | No. previous echos: 0DOB: 1965 53 years Heart Rate: | | | 69 bpmHeight: 62.0 in Blood Pressure: | | | 126/80 mm/HgWeight: 146.0 lb Gender: | | | FBSA: 1.67 m | | | Order ID: [id number] Study | | | Location: OPSonographer: Liliana ANDERSON, MATTReferring Provider: | | | Sejal Lehman Performed: 2D, Color flow, Spectral | | | Doppler, For the precise quantification of LV volumes and ejection | | | fraction, online 3-D reconstruction was clinically indicated and | | | performed under the concurrent supervision of the interpreting | | | spring tester. and Strain.Study Quality: Good.Exam Indication: | | [...] | | Aortic MitralLVID(d) 4.66 (3.5-5.7cm) Max Jerome | | | 1.24 Peak E 0.68 [...] Report | | | electronically signed by: [id number] aYdi Huang MD, PhD | | | (03/10/2019, [...] | | | |Report electronically signed by: [id number] Yadi Huang MD, PhD (03/10/2019, | | |2:50:22 PM) | | | | | | | | | | | | Final | | + +---- + + + | Procedure Note | + + | Interface, Cardiology Results - 03/10/2019 2:50 PM [facility] [employer] | | [facility] Echocardiography Laboratory [address] [place] [address] | | [place], [place] [address] Pt Name: ANALY MARROQUIN | | MARQUISE Study Date/Time 03/10/2019 / 1:59:36 PMMRN: [id number] Most | | recent prior: 0Acc #: [id number] No. previous echos: 0DOB: 1965 53 | | years Heart Rate: 69 bpmHeight: 62.0 in Blood Pressure: 126/80 | | mm/HgWeight: 146.0 lb Gender: FBSA: 1.67 m | | Order ID: [id number] Study Location: OPSonographer: September | | Adryan ANDERSON, MATTReferring Provider: Sejal Lehman Performed: 2D, Color | | flow, Spectral Doppler, For the precise quantification of LV volumes and ejection | | fraction, online 3-D reconstruction was clinically indicated and performed under the | | concurrent supervision of the interpreting spring tester. and Strain.Study Quality: | | Good.Exam Indication: [...] values Report electronically | | signed by: [id number] Yadi Huang MD, PhD (03/10/2019, 2:50:22 PM) [...] | | | |Report electronically signed by: [id number] Yadi Huang MD, PhD (03/10/2019, | |2:50:22 PM) | | | | | | | | Final | + + + + + + + | Performing | Address | City/State/Zipcode | Phone Number | | Organization | | | | + + + + + | [facility] | [address] | [place], [place] | | | CARDIOLOGY | [facility] | [address] | | + + + + + documented in this encounter Visit Diagnoses Not on filedocumented in this encounter
--- OUTSIDE RECORDS SUMMARY | ~2020-03-12 | XMS | Encounter Summary ---
Demographics + + + | Address | [address] | | | [place] [address] | + + + | Home Phone [...] + + + | Author | [facility] | + + + | Organization | [facility] | + + + | Address | Unknown | + + + | Phone | Unavailable | + + + Support + + +---------+ + | Name | Relationship | Address | Phone | + + +---------+ + | Claudia Cota | ECON | Unknown | | + + +---------+ + Care Team Providers + +------+ + | Care Antique Refinisher Name | Role | Phone | + +------+ + | Meredith Sanchez | PCP | | + +------+ + Reason for Visit + + + | Reason | Comments | + + + | Lab Draw | Edong | + + + | Dressing change | Groshong | + + + | Intravenous infusion | 4g Mag, 1L NS | + + + | Medication | oral potassium | + + + | Follow-up visit | | + + + Other (Routine) +--------+--------+ + + + + | Status | Reason | Specialty | Diagnoses / | Referred By | Referred To | | | | | Procedures | Contact | Contact | +--------+--------+ + + + + | Closed | | Hematology | Diagnoses | Wil, | [facility] | | | | 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 | Sejal Meadows, | [facility] [address] | | | | | (myelodyspla | DO [address] | | | | | stic | Jon Valverde | [place] for | | | | | syndrome) | [facility] | [facility] and | | | | | (HCC) | [place], [place] | Healing, | | | | | Procedures | [address] | [address] | | | | | [place] | Phone: | [place], [place] | | | | | OFFICE/OUTPT | [phone] | [address] | | | | | | Fax: | Phone: | | | | | VISIT,EST,LE | [phone] | [phone] | | | | | VL IV CA | | Fax: | | | | | EST PATIENT | | [phone] | | | | | LEVEL V | | | +--------+--------+ + + + + Encounter Details +--------+ + + + + | Date | Type | Department | Care Team | Description | +--------+ + + + + | 05/20/ | Hospital | [facility] | A, [address] | | | 2019 | Encounter | Clinics at S | [facility], | | | | | [facility] [address] | [place] [address] | | | | | [facility] | | | | | [facility], | | | | | | [address] | | | | | | [place], [place] | | | | | | [address] | | | | | | [phone] | | | +--------+ + + + [...] + + + | Blood Pressure | 107/63 | 05/20/2019 8:24 AM | | | | | PST | | + + + + + | Pulse | 98 | 05/20/2019 8:24 AM | | | | | PST | | + + + + + | Temperature | 36.7 C (98.1 F) | 05/20/2019 8:24 AM | | | | | PST | | + + + + + | Respiratory Rate | 16 | 05/20/2019 8:24 AM | | | | | PST | | + + + + + | Oxygen Saturation | 97% | 05/20/2019 8:24 AM | | | | | PST | | + + + + + | Inhaled Oxygen | - | - | | | Concentration | | | | + + + + + | Weight | 62.8 kg (138 lb 8 | 05/20/2019 8:24 AM | | | | oz) | PST | | + + + + + | Height | - | - | | + + + + + | Body Mass Index | 24.82 | 04/15/2019 1:50 PM | | | [...] documented as of this encounter Progress Notes Kerline Braden RN - 05/20/2019 8:20 AM PSTAssessment Patient arrives to clinic walking independently. Patient states She is feeling ok today. St ill experiencing lots of fatigue. 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 Fever/Chills/Infection: No SOB / Cough: No Fatigue/Dizziness/Lightheaded: Has a lot of fatigue still, maybe a bit more than yesterday. Occasional lightheadedness and dizziness, had some this morning after an episode of diarrhe a. Signs/Symptoms Bleeding: No Neuropathy: No Mucositis: No Nausea/Vomiting: Yes, ongoing nausea. Continues with prn antiemetics. Appetite: ok. Diarrhea/Constipation: Yes - How often? Had 1 episode this morning. PO Fluid Intake: 2L a day. Urinary Issues: No Rash/Skin/Edema: No Pain: No Lab Groshong accessed per protocol. Good blood return noted. Appropriate waste discarded. Meghna portillo drawn and sent. Groshong pulse flushed with 20 mL NS. Immunosuppressant Patient reports holding their dose of tacrolimus today. They report taking 1.5mg AM and 1mg PM. This matches the medicationlist. Confirmed with patient and caregiver that we [...] Positive pressure valves changed to each port. A ll lumens pulse flushed with 10 mL NS. Patient tolerated procedure without difficulty. Education For education provided, see education tab. Supportive Care Magnesium Magnesium Sulfate 4 gm in 100 mL NS infused over 2 hours per supportive care orders for a m agnesium level of 1.5. For infusion details, see AUG. Transfusion/Infusion Oral potassium chloride 40 meq administered per supportive care orders for a potassium leve l of 3.2. For details, see AUG. Pt received 1L of normal saline per infusion plan orders over 1.5 hours for elevated creati nine. Discharge Line care provided, see Flowsheet for details. Patient was instructed to [facility] desk prior to leaving the clinic. Patient d/c d ambulatory in stable condition. Next appointment scheduled 05/24/19 at 10:10 am. Kerline Braden RN documented in this enc ounter Plan of Treatment Not on filedocumented as of this encounter Procedures + +--------+ + + + | Procedure Name | Priori | Date/Time | Associated Diagnosis | Comments | | | ty | | | | + +--------+ + + + | [facility] - MAGNESIUM, | Routin | 05/20/2019 | MDS | Results for this | | PLASMA | e | 8:32 AM | (myelodysplastic | procedure are in the | | | | PST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) | results section. | + +--------+ + + + | [facility] - PHOSPHORUS, | Routin | 05/20/2019 | MDS | Results for this | | PLASMA | e | 8:32 AM | (myelodysplastic | procedure are in the | | | | PST | syndrome) ([facility]) | results section. | + +--------+ + + + | [facility] - LDH TOTAL, | Routin | 05/20/2019 | MDS | Results for this | | PLASMA | e | 8:32 AM | (myelodysplastic | procedure are in the | | | | PST | syndrome) ([facility]) | results section. | + +--------+ + + + | CBC AND AUTO DIFF | Routin | 05/20/2019 | MDS | Results for this | | | e | 8:32 AM | (myelodysplastic | procedure are in the | | | | PST | syndrome) ([facility]) | results section. | + +--------+ + + + | [facility] - COMPLETE | Routin | 05/20/2019 | MDS | Results for this | | METABOLIC SET | e | 8:32 AM | (myelodysplastic | procedure are in the | | | | PST | syndrome) ([facility]) | results section. | + +--------+ + + + | [facility] CBC W | Routin | 05/20/2019 | MDS | Results for this | | DIFFERENTIAL | e | 8:32 AM | (myelodysplastic | procedure are in the | | | | PST | syndrome) ([facility]) | results section. | + +--------+ + + + | CMV PCR | Routin | 05/20/2019 | MDS | Results for this | | QUANTITATION, PLASMA | e | 8:32 AM | (myelodysplastic | procedure are in the | | | | PST | syndrome) ([facility]) | results section. | + +--------+ + + + | TACROLIMUS, WHOLE | Routin | 05/20/2019 | MDS | Results for this | | BLOOD | e | 8:32 AM | (myelodysplastic | procedure are in the | | | | PST | syndrome) ([facility]) | results section. | + +--------+ + + + documented in this encounter Results CBC AND AUTO DIFF (05/20/2019 8:32 AM PST) + + + + + + | Component | Value | Ref Range | Performed | Pathologist | | | | | At | Signature | + + + + + + | WHITE CELL | 4.89 | 3.50 - 10.80 | [facility] | [...] + + + + | HEMATOCRIT | 25.1 (L) | 36.0 - 46.0 % | [facility] | | | | | | LABORATORY | | | | | | SERVICES, | | | | | | [facility] | | | | | | [facility] | | + + + + + + | MCV | 82.8 | 80.0 - 100.0 fL | [facility] | | | | | | LABORATORY | | | | | | SERVICES, | | | | | | [facility] + | | | | | | [facility] | | + + + + + + | MCHC | 34.3 | 32.0 - 36.0 | [facility] | | | | | g/dL | LABORATORY | | | | | | SERVICES, | | | | | | [facility] + | | | | | | [facility]ALING | | + + + + + + | RDW SD | 41.5 | 35.1 - 46.3 fL | [facility] | | | | | | LABORATORY | | | | | | SERVICES, | | | | | | [facility] + | | | | | | [facility]ALING | | + + + + + + | PLATELET | 20 (L) | 150 - 400 K/cu | [...] + + + + | NEUTROPHIL | 58.1 | 50.0 - 70.0 % | [facility] | | | % | | | LABORATORY | | | | | | SERVICES, | | | | | | [facility] | [facility] + | | | | | | [facility]ALING | | + + + + + + | LYMPHOCYTE | 6.5 (L) | 18.0 - 42.0 % | [facility] | | | % | | | LABORATORY | | | | | | SERVICES, | | | | | | [facility] | [facility] + | | | | | | [facility]ALING | | + + + + + + | MONOCYTE % | 20.7 (H) | 3.5 - 9.0 % | [facility] | | | | | | LABORATORY | | | | | | SERVICES, | | | | | | [facility] | [facility] + | | | | | | [facility]ALING | | + + + + + + | EOS % | 5.3 (H) | 1.0 - 3.0 % | [facility] | | | | | | LABORATORY | | | | | | SERVICES, | | | | | | [facility] | [facility] + | | | | | | HEALING | | + + + + + + | BASO % | 0.8 | 0.0 - 2.0 % | [facility] | | | | | | LABORATORY | | | | | | SERVICES, | | | | | | [facility] | [facility] + | | | | | | [facility]ALING | | + + + + + + | IG% | 8.6 (H) | 0.0 - 1.0 % | [facility] | | | | | | LABORATORY | | | | | | SERVICES, | | | | | | [facility] | [facility] + | | | | | | [facility]ALING | | + + + + + + | NEUTROPHIL | 2.84 | 1.80 - 7.70 | [facility] | | | # | | K/cu mm | LABORATORY | | | | | | SERVICES, | | | | | | [facility] | [facility] + | | | | | | [facility]ALING | | + + + + + + | NEUTROPHIL | 2.84Comment: Preliminary | 1.80 - 7.70 | [facility] [...] + + + | MONOCYTE # | 1.01 (H) | 0.10 - 0.90 | [facility] | | | | | K/cu mm | LABORATORY | | | | | | SERVICES, | | | | | | [facility] | [facility] + | | | | | | HEALING | | + + + + + + | EOS # | 0.26 | 0.00 - 0.50 | [facility] | | | | | K/cu mm | LABORATORY | | | | | | SERVICES, | | | | | | [facility] | [facility] + | | | | | | HEALING | | + + + + + + | BASO # | 0.04 | 0.00 - 0.10 | [facility] | | | | | K/cu mm | LABORATORY | | | | | | SERVICES, | | | | | | [facility] | [facility] + | | | | | | [facility]ALING | | + + + + + + | IG# | 0.42 (H) | 0.00 - 0.10 | [facility] [...] [facility] | [address] | [place] [address] | | | [facility] | | | | | [...] | | | LABORATORY | | | [place] | | | SERVICES, | | | [...] MDRD equation recommended by the National | [facility] | | Kidney Disease Education Program. Estimated [...] + + + + + | [facility] | [address] | [place] [address] | | | SERVICES, [facility] FOR | [...] | + + + + + | [facility] | [address] | [place] [address] | | | SERVICES, [place] [facility] | | | | | HEALTH [...] LABORATORY | [address] | [place] [address] | | | SERVICES, [facility] | | | | | HEALTH + HEALING | | | | + + + + + [facility] - PHOSPHORUS, PLASMA (05/20/2019 8:32 AM PST) [...] LABORATORY | [address] | [place] [address] | | | [facility] | | | | | [...] | Test performed by immunoassay using [employer] Pipe Line Gauger i2000. . | [facility] | | Samples [...] | + + + + + | [facility] | [address] | [place] [address] | | | SERVICES, SPECIAL | PARK [...] | | | characteristics determined by the [facility] | | | [facility]. It has not been cleared or approved by | | | the Food and Drug Administration. FDA approval is not required for | | | clinical use of this test, and therefore validation was done as | | | required under the requirements of the Clinical Laboratory Improvement | | | Act of 1988. The [facility] | | | Diagnostic Center is a fully licensed and/or accredited clinical | | | laboratory under CLIA, [facility], and the [facility]. | | + + + + + + + + | Performing | Address | City/State/Zipcode | Phone Number | | Organization | | | | + + + + + | [facility] | [address] | [place] [address] | | | DIAGNOSTIC | [address] [...] in water IV | New Bag | 05/20/20 | 4 g | | | | (RTU) 4 g 4 g, intravenous, | | 19 9:20 | | | | | ONCE, 1 dose, 05/20/19 at | | AM PST | | | | | 0915 | | | | | | + +---------+ +------+------+------+ +---+---+ | | | +---+---+ + +-------+ +--------+---+---+ | potassium chloride SR | Given | 05/20/20 | 40 mEq | | | | (KLOR-CON) tablet 40 mEq 40 mEq, | | 19 9:49 | | | | | oral, ONCE, 1 dose, [facility] 05/20/19 | | AM PST | | | | | at 0915 | | | | | | + +-------+ +--------+---+---+ +---+---+ | | | +---+---+ + +---------+ + +---+---+ | sodium chloride 0.9 % (NS) IV | New Bag | 05/20/20 | 1,000 mL | | | | infusion 1,000 mL, intravenous, | | 19 9:50 | | | | | NEEDED, Starting Thu05/20/19 | | AM PST | | | | | at 0944, Until Thu05/20/19 at | | | | | | | 2142, decreased po intake, | | | | | | | dizziness | | | | | | + +---------+ + +---+---+ +---+---+ | | | +---+---+ documented in this encounter"
--- OUTSIDE RECORDS SUMMARY | ~2020-03-12 | XMS | Encounter Summary ---
Demographics + + + | Address | [address] | | | [place] [address] | + + + | Home Phone [...] Team Providers + +------+ + | Care Vocal Teacher Name | Role | Phone | + +------+ + | Meredith Sanchez | PCP | | + +------+ + Reason for Visit + + + | Reason | Comments | + + + | AML - Acute myeloid | | | leukemia | | + + + Intake Referral (Routine) +--------+---------+ + + + [...] | | | blasts [address] | [address] | | | | | EVALUATE FOR | [facility], | [place], [place] | | | | | HDCT ALLO | [place] [address] | [address] | | | | | BMT FOR RAEB | Phone: | Phone: | | | | | 2 | [phone] | [phone] | | | | | | Fax: | Fax: | | | | | | [phone] | [phone] | +--------+---------+ + + + + Encounter Details +--------+---------+ + + + | Date | Type | Department | Care Team | Description | +--------+---------+ + + + | 12/02/ | Office | [facility] | Sejal De La Torre | 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 | Clinics at S | N, DO [address]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) | | | | [facility] [address] | (Primary Dx) | | | | [facility] | [place], [place] | | | | | Health and Healing, | [address] | | | | | Building [address] | [phone] | | | | | [place], [place] | | | | | | [address] | | | | | | [phone] | | | +--------+---------+ + + + [...] + + + | Blood Pressure | 140/72 | 12/02/2018 11:12 AM | | | | | PDT | | + + + + + | Pulse | 73 | 12/02/2018 11:12 AM | | | | | PDT | | + + + + + | Temperature | 36.9 C (98.4 F) | 12/02/2018 11:12 AM | | | | | PDT | | + + + + + | Respiratory Rate | 12 | 12/02/2018 11:12 AM | | | | | PDT | | + + + + + | Oxygen Saturation | 99% | 12/02/2018 11:12 AM | | | | | PDT | | + + + + + | Inhaled Oxygen | - | - | | | Concentration | | | | + + + + + | Weight | 67 kg (147 lb 12.8 | 12/02/2018 11:12 AM | | | | oz) | PDT | | + + + + + | Height | 157 cm (5' 1.81") | 12/02/2018 11:12 AM | | | | | PDT | | + + + + + | Body Mass Index | 27.2 | 12/02/2018 11:12 AM | | | | | PDT | | + + + + + documented in this encounter Patient Instructions Patient Instructions Sejal De La Torre DO - 12/02/2018 11:30 AM PDTIt was nice to meet lizette u today. Dr. De La Torre has reviewed your chart and after talking to you she does agree with yo ur diagnosis and the treatment you've had thus far. She also discussed with you treatment options including an allogeneic (donor) stem cell tra nsplant. We will have you come back here to meet with Dr. De La Torre, review the donor options etc. Our schedulers will call you to schedule a visit. For an Allogeneic (Allo) transplant two things must be in place first 1) you need disease control 2) we need to have a donor The Allo transplant gives you the best option for a cure but it does come with risks. Ther e are risks for you to have life threatening complications and or infections with this proce dure. The Allo transplant is basically going to give you a new immune system--(from the don or) Allo tranpslant is a 5 step/phases process. STEP 1) Active treatment (which is what you are doing now) to get the disease under control STEP 2) Pre-transplant evaluations to make sure disease is under control and you are health y enough to undergo the transplant. These tests include, labs, bone marrow biopsy, lung fu nction test, heart function tests, chest x-ray, ekg, and an education class for you and your caregiver and a meeting with Janee Bellamy our renal social worker to help you if you need any othe r assistance -non medical stuff. ( we coordinate this to happen all here at [facility] in one da y) The 2 hour education class that you will attend here at [facility] that talks about what to expec t before, during and after transplant including GVHD After these tests are completed, you'll meet with Dr. De La Torre (about a week after the tests are completed) to review the test results and sign the consent forms. STEP 3) Transplant- you will get chemotherapy either in our clinic or you may admit to [facility] and get high dose chemotherapy for several days. Once the chemotherapy has been completed, then you get your transplant. The actual transplant is an infusion of the donor cells, s imilar to a blood or platelet transfusion. This is about a 3-4 week hospitalization while y ou recover. You will need a central line for transplant and your nurse coordinator will arra alejandro for the placement of this. STEP 4) When you discharge from [facility] after transplant you need to be living close to [facility] ( within 20 miles) for up to 100 days after the transplant. You will also need a / caregiv er or team of caregivers to assist you. The caregiver will bring to you clinic several time s a weeks, assist with food preparation, medications etc. Your physicians nurse is Sean Barnard. You can our team Thursday thru Thursday by page at or by phone at [phone].Electronically signed by Sejal De La Torre DO at 2018 12:55 PM PDT documented in this encounter Progress Notes Sejal De La Torre DO - 12/02/2018 11:30 AM PDT BMT CONSULT 12/02/2018 12/02/2018 [facility] [address] [address] This consult or new patient visit was requested by: Tripp Sequeira MD [facility] [place] [address] Reason for Consultation Nona Hopper is a 53 year old female who was referred to our clinic for discussion of allogeneic hematopoietic stem cell transplant options for 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 MDS (myelodysplastic syndrome) (HCC) 11/30/2018 Initial Diagnosis MDS (myelodysplastic syndrome) (HCC) 12/02/2018 - Chemotherapy [No matching medication found in this treatment plan] History of Present Illness: Nona Hopper is a 53 year old female who is presenting today as consult for bone harini ow transplantation as curative strategy for high risk MDS vs evolving AML. The patient has a past medical history that includes uterine fibroids and fibroid removal from the left breas t. Her hematogical history dates back to 2016 when she noted progressive fatigue. 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 She was working 6 days per week and thought she was working too hard. She left her job in August 2017 to give herself some time to feel better. She had been to various physicians in [place] for fatigue without answers. In January 15, she developed fevers up to 104. She was tested for lyme disease, rheumatological c onditions which were all negative. She began to notice that her counts were dropping. She re located to [facility] from [place] to live with her niece in 06/2018. She saw a local PA in [facility] 07/2018 Meredith Sanchez who did further testing. [...] D3, dexamethasone was added for D4-D7. She missed D7 due to this appointment . Overall she is feeling ok. She lives in a travel trailer at her niece's house. Her niece burgos s 5 dogs, 2 chicken, 3 cats and 1 ferret. She is applying for disability and not currently w orking. Her niece owns a [employer] and she helps out as needed. She has daily fatigue, no nigh t sweats but intermittent fevers to 104. She has lost 20 lbs since December 2017. No early satie ty. No abdominal pain. She has no healthy siblings. One brother in [place] is an alcoholic. Older sister lives in a snf due to vascular dementia and severe diabetes. Review of Systems Constitutional: Positive for malaise/fatigue and weight loss. Negative for chills and fever . HENT: Negative. Eyes: Negative. Respiratory: Negative. Cardiovascular: Negative. Gastrointestinal: Negative. Genitourinary: Negative. Musculoskeletal: Negative. Skin: Negative for rash. Neurological: Negative. Current Medication List Name Sig ACYCLOVIR 400 MG TABLET Take 400 mg by mouth two times daily. VIDAZA INJ 75 mg by injection route. 75 mg injection daily for seven days every 28 days, 12/02/2018 CIPROFLOXACIN 500 MG TABLET Take 500 mg by mouth every twelve hours. DEXAMETHASONE 4 MG TABLET Take 8 mg by mouth once daily. FERROUS SULFATE 325 MG (65 MG IRON) TABLET Take 325 mg by mouth once daily. FLUCONAZOLE 200 MG TABLET Take 200 mg by mouth once daily. ONDANSETRON HCL 8 MG TABLET Take 8 mg by mouth every twelve hours as needed. TRIAMTERENE 37.5 MG-HYDROCHLOROTHIAZIDE 25 MG CAPSULE Take 1 capsule by mouth once daily. Past Medical History: Diagnosis Date Fibroid HTN [...] Last attempt to quit: 06/29/2004 Years since quittin.4 Smokeless tobacco: Never Used Substance and Sexual Activity Alcohol use: Not Currently Comment: very occasionally Drug use: Not on file Sexual activity: Not on file Lifestyle Physical activity: Days per week: Not on file Minutes per session: Not on file Stress: Not on file Relationships Social connections: Talks on phone: Not on file Gets together: Not on file Attends alevism service: Not on file Active member of club or organization: Not on file Attends meetings of clubs or organizations: Not on file Relationship status: Not on file Intimate partner violence: Fear of current or ex partner: Not on file Emotionally abused: Not on file Physically abused: Not on file Forced sexual activity: Not on file Other Topics Concern Not on file Social History Narrative Lives with niece in [place]: Vitals: 12/02/18 1112 BP: 140/72 BP Location: Right upper arm Patient Position: Sitting Pulse: 73 Resp: 12 Temp: 36.9 C (98.4 F) TempSrc: Oral SpO2: 99% Weight: 67 kg (147 lb 12.8 oz) Height: 1.57 m (5' 1.81") PainSc: 0 - Zero Physical Exam Constitutional: [...] Laboratory Lab Results Component Value Date WBC 3.72 12/02/2018 HB 13.5 12/02/2018 HCT 38.8 12/02/2018 PLT 216 12/02/2018 MCV 89.2 12/02/2018 RDW 49.1 12/02/2018 Lab Results Lab Test Name Results Date/Time [...] FLT3, NPM1, CEBPA, c-KIT, IDH1, IDH2, TP53. 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 Ms. Dwyer has IPSS score I nt-2 MDS and IPSS-R score intermediate. Her history suggests that she may have had preceding MDS however the normal karyotype and lack of MDS associated mutations or cytogenetics suppo rts more of a diagnosis of evolving AML. Of note, she did have >20% blasts on her marrow by flow which would meet criteria for diagnosis of AML. I would like her slides reviewed here f or definitive diagnosis. She has started therapy and is due for SQ vidaza today (started on 11/23/18). We did not obtain authorizatrion from insurance to give that and thus, she will co ntinue her therapy locally. We discussed the natural history and expected prognosis of MDS/A ML and need for treatment. Given her Int-2 based disease, NCCN guidelines would recommend tr ansplant in CR1. I therefore reviewed the rationale for transplant including relocation to [facility], 24 hour caregiver support, donor and disease control. Ideally, I would lik e the blast count <5 % in order to decrease relapse risk post transplant. [facility] discussed [facility] risk of dying or having serious complications from transplant is based on the presence of underlying comorbid conditions, conditioning regimen toxicity and degree of donor match. F or this patient, the HCT-CI will be 0, but pre-transplant testing will be the final determin ant. Reviewed rationale for transplant with chemotherapy and immunotherapy effects, and post -transplant care requiring 2-3 days/week in clinic and realtime reporter caregiver x 100 days. Revie wed unpredictable nature of transplant, significant risk of GVHD (50% any grade, 15% catastr ophic), serious infections due to prolonged immunosuppression and appx 20% TRM in first year post-transplant. Discussed need for IST for appx 6 months after transplant to mitigate ri sk of early severe GVHD, and potential for side effects from chemo and tacrolimus. All quest ions were answered. The patient would like to proceed with HLA-typing and donor search. I believe this patient to be an excellent transplant candidate however will need to find ca regiver support and relocation to [facility]. She has a motor home which could be an option [facility]. To be clear, her biggest barrier to transplant at this time is her disease which needs to be in remission. Plan: -HLA typing today -Labs today with iSuppliraKayo technology to better risk stratify patient -plan for MUD search given no sibling options and no children -plan to repeat bone marrow in 8 weeks here with flow, genetrails, cytogenetics which will be after 2 cycles of 7 day AZA -if no response to AZA, would consider induction therapy given normal cytogenetics -review bone marrow slides here -stop iron as it is causing constipation and unlikely to help. -Auth not obtained for AZA here, will complete therapy locally A copy of this consult has been sent to the requesting provider. Urgent recommendations, if any, will be communicated with the provider directly. Summary of visit This was a consult or new patient visit with Nona Hopper. My veuh-on-ttvs visit last ed 70 minutes, with over 50% of that time spent in counseling and coordination of care. In a ddition to history gathering and physical examination, today, I discussed with the patient t he primary diagnosis, the natural history and overall prognosis of the disease, and treatmen t options appropriate for the patient. documented in this encounter Plan of Treatment Not on filedocumented as of this encounter Procedures + +--------+ + + + | Procedure Name | Priori | Date/Time | Associated Diagnosis | Comments | | | ty | | | | + +--------+ + + + | BROOKE WALKER BM | Routin | 12/02/2018 | MDS | Results for this | | RECIPIENT PANEL, | e | 1:22 PM | (myelodysplastic | procedure are in the | | DRAW & HOLD ONLY | | PDT | syndrome) ([facility]) | results section. | + +--------+ + + + | FLT3 ITD, BLOOD | Routin | 12/02/2018 | MDS | Results for this | | | e | 1:22 PM | (myelodysplastic | procedure are in the | | | | PDT | syndrome) ([facility]) | results section. | + +--------+ + + + | COMPREHENSIVE HEME | Routin | 12/02/2018 | MDS | Results for this | | PANEL SEQ, BLOOD | e | 1:22 PM | (myelodysplastic | procedure are in the | | | | PDT | syndrome) ([facility]) | results section. | + +--------+ + + + | GENETRAILS | Routin | 12/02/2018 | MDS | Results for this | | COMPREHENSIVE HEME | e | 1:22 PM | (myelodysplastic | procedure are in the | | PANEL, BLOOD | | PDT | syndrome) ([facility]) | results section. | + +--------+ + + + | CBC AND AUTO DIFF | Routin | 12/02/2018 | MDS | Results for this | | | e | 1:22 PM | (myelodysplastic | procedure are in the | | | | PDT | syndrome) ([facility]) | results section. | + +--------+ + + + | [facility] CBC W | Routin | 12/02/2018 | MDS | Results for this | | DIFFERENTIAL | e | 1:22 PM | (myelodysplastic | procedure are in the | | | | PDT | syndrome) ([facility]) | results section. | + +--------+ + + + | COMPLETE METABOLIC | Routin | 12/02/2018 | MDS | Results for this | | SET | e | 1:22 PM | (myelodysplastic | procedure are in the | | (NA,K,CL,CO2,BUN,CRE | | PDT | syndrome) ([facility]) | results section. | | AT,GLUC,CA,AST,ALT,B | | | | | | TI TOTAL,ALK | | | | | | PHOS,ALB,PROT TOTAL) | | | | | + +--------+ + + + documented in this encounter Results CBC AND AUTO DIFF (12/02/2018 1:22 PM PDT) + + + + + + | Component | Value | Ref Range | Performed | Pathologist | | | | | At | Signature | + + + + + + | WHITE CELL | 3.72 | 3.50 - 10.80 | [facility] | | | COUNT | | K/cu mm | LABORATORY | | | | | | SERVICES, | | | | | | [facility] | | | | | | [facility] | | + + + + + + | RED CELL | 4.35 | 4.00 - 5.20 | [facility] | | | COUNT | | M/cu mm | LABORATORY | | | | | | SERVICES, | | | | | | [facility] + | | | | | | [facility] | | + + + + + + | HEMOGLOBIN | 13.5 | 12.0 - 16.0 | [facility] | | | | | g/dL | LABORATORY | | | | | | SERVICES, | | | | | | [facility] + | | | | | | [facility]ALING | | + + + + + + | HEMATOCRIT | 38.8 | 36.0 - 46.0 % | [facility] | | | | | | LABORATORY | | | | | | SERVICES, | | | | | | [facility] + | | | | | | [facility]ALING | | + + + + + + | MCV | 89.2 | 80.0 - 100.0 fL | [facility] | | | | | | LABORATORY | | | | | | SERVICES, | | | | | | [facility] | [facility] + | | | | | | [facility] | | + + + + + + | MCHC | 34.8 | 32.0 - 36.0 | [facility] | | | | | g/dL | LABORATORY | | | | | | SERVICES, | | | | | | [facility] | [facility] + | | | | | | [facility] | | + + + + + + | RDW SD | 49.1 (H) | 35.1 - 46.3 fL | [facility] | | | | | | LABORATORY | | | | | | SERVICES, | | | | | | [facility] + | | | | | | [facility]ALING | | + + + + + + | PLATELET | 216Comment: Few platelet | 150 - 400 K/cu | [facility] | | | COUNT | clumps on smear. Macro | mm | LABORATORY | | | | platelets present. | | SERVICES, | | | | | | [facility] | [facility] + | | | | | | [facility]ALING | | + + + + + + | MPV | 10.8 | 9.7 - 12.3 fL | [facility] [...] + + + + | NEUTROPHIL | 50.2 | 50.0 - 70.0 % | [facility] | | | % | | | LABORATORY | | | | | | SERVICES, | | | | | | [facility] | | [facility] | [facility] + | | | | | | [facility]ALING | | + + + + + + | LYMPHOCYTE | 44.4 (H)Comment: Fewer | 18.0 - 42.0 % | [facility] | | | % | than 10% Reactive Lymphs | | LABORATORY | | | | noted on scan. | | SERVICES, | | | | | | [facility] + | | | | | | [facility]ALING | | + + + + + + | MONOCYTE % | 4.8 | 3.5 - 9.0 % | [facility] | | | | | | LABORATORY | | | | | | SERVICES, | | | | | | [facility] | [facility] + | | | | | | [facility]ALING | | + + + + + + | EOS % | 0.0 (L) | 1.0 - 3.0 % | [...] + + + + | IG% | 0.3Comment: Increased | 0.0 - 1.0 % | [...] + + + + | NEUTROPHIL | 1.87 | 1.80 - 7.70 | [facility] | | | # | | K/cu mm | LABORATORY | | | | | | SERVICES, | | | | | | [facility] | [facility] + | | | | | | HEALING | | + + + + + + | NEUTROPHIL | 1.87Comment: Preliminary | 1.80 - 7.70 | [facility] [...] + + + + | LYMPHOCYTE | 1.65 | 1.00 - 4.80 | [facility] | | | # | | K/cu mm | LABORATORY | | | | | | SERVICES, | | | | | | [facility] | [facility] + | | | | | | [facility]ALING | | + + + + + + | MONOCYTE # | 0.18 | 0.10 - 0.90 | [facility] | | | | | K/cu mm | LABORATORY | | | | | | SERVICES, | | | | | | [facility] | | [facility] + | | | | | | [facility]ALING | | + + + + + + | EOS # | 0.00 | 0.00 - 0.50 | [facility] | [...] + + + + | IG# | 0.01 | 0.00 - 0.10 | [...] | + + + + + | [facility] | [address] | [place] [address] | | | [facility] | | | | | HEALTH + HEALING | | | | + + + + + FLT3 ITD, BLOOD (12/02/2018 1:22 PM PDT) + + + + + + | Component | Value | Ref Range | Performed | Pathologist | | | | | At | Signature | + + + + + + | FLT3 ITD | Undetected. | | [facility] | | | | | | [facility]ST[facility] | | | | | | | | | | | | LABORATORIE | | | | | | S | | + + + + + + | INTERPRETAT | No internal tandem | | [facility] | | | ION | duplication (ITD)In this | | DIAGNOSTIC | | | | sample, the FLT3 | | | | | | juxtamembrane domain | | LABORATORIE | | | | does not contain a | | S | | | | detectable internal | | | | | | tandem duplication (ITD) | | | | | | mutation. The absence | | | | | | of a detectable ITD | | | | | | mutation in this sample | | | | | | does not rule out the | | | | | | presence of a small | | | | | | population of | | | | | | mutation-bearing cells, | | | | | | below the low-level | | | | | | detection limit of the | | | | | | assay (~1-5% of the | | | | | | total cells analyzed). | | | | | | Since this mutation | | | | | | appears to be acquired | | | | | | only in tumor cells, | | | | | | this negative result may | | | | | | also simply be the | | | | | | result of the sample | | | | | | containing too few | | | | | | leukemia cells.Comment: | | | | | | For the purposes of | | | | | | improved patient care, | | | | | | the findings for | | | | | | FLT3-ITD gene mutation | | | | | | analysis are issued in | | | | | | this separate report. | | | | | | Next generation | | | | | | sequencing analysis is | | | | | | being performed and a | | | | | | comprehensive | | | | | | interpretation of all 76 | | | | | | genes analyzed in this | | | | | | case will be reported in | | | | | | a separate report upon | | | | | | completion of the | | | | | | remaining tests. | | | | + + + + + + | METHOD(S) | For the ITD assay | | [facility] | | | | performed in our | | DIAGNOSTIC | | | | laboratory, blood, or | | | | | | bone marrow-derived DNA | | LABORATORIE | | | | is PCR amplified with | | S | | | | FLT3 juxtamembrane | | | | | | domain (exon 14) | | | | | | primers. The FLT3 ITD | | | | | | PCR product is then | | | | | | analyzed by capillary | | | | | | electrophoresis to | | | | | | detect the presence or | | | | | | absence of length | | | | | | variations attributable | | | | | | to an ITD. The | | | | | | low-level sensitivity | | | | | | limit of the assay is | | | | | | ~1-5%, such that a | | | | | | mutant cell (or tumor | | | | | | cell) population below | | | | | | this detection limit | | | | | | will not be reliably | | | | | | detected. | | | | + + + + + + | REFERENCES | 1. Amos Clifford | | [facility] | | | | T, Hunter Tolbert. Molecular | | DIAGNOSTIC | | | | genetics of adult acute | | | | | | myeloid leukemia: | | LABORATORIE | | | | prognostic and | | S | | | | therapeutic | | | | | | implications. J Clin | | | | | | Oncol. | | | | | | 2010;29:475-486.2. | | | | | | Chari SP, Aniya , | | | | | | Amauri DIAZ, et al. | | | | | | FLT3 [id number] mutations | | | | | | are associated with | | | | | | poor disease-free | | | | | | survival and a distinct | | | | | | gene-expression | | | | | | signature among younger | | | | | | adults with de hollis | | | | | | cytogenetically normal | | | | | | acute myeloid leukemia | | | | | | lacking FLT3 internal | | | | | | tandem duplications. | | | | | | Blood | | | | | | 2007;111:8985-2123. | | | | + + + + + + | DISCLAIMER | This test was developed | | [facility] | | | | and its performance | | DIAGNOSTIC | | | | characteristics | | | | | | determined by the [facility] | | LABORATORIE | | | | [facility] | | S | | | [...] | | | | Improvement Act of 1987 | | | | | | (CLIA). [facility] | | | | | | Diagnostics | | | | | | Laboratories are fully | | | | | | licensed by the state of | | | | | | [place] under CLIA and | | | | | | are accredited by the | | | | | | [employer] | | | | | | Pathologists ([employer]). | | | | | | Marine Meteorologist: | | | | | | Tayo Singletary, | | | | | | Isabela, Ph.D | | | | + + + + + + + + | Specimen | + + | Blood - Blood | | (substance) | + + + + + + + | Performing | Address | City/State/Zipcode | Phone Number | | Organization | | | | + + + + + | [facility] | [address] | [place] [address] | | | DIAGNOSTIC | [address] | | | | LABORATORIES | | | | + + + + + COMPREHENSIVE HEME PANEL SEQ, BLOOD (12/02/2018 1:22 PM PDT) + + + + + + | Component | Value | Ref Range | Performed | Pathologist | | | | | At | Signature | + + + + + + | COMPREHENSI | See Interpretation. | | [facility] | | | VE HEME | | | DIAGNOSTIC | | | PANEL SEQ | | | | | | | | | LABORATORIE | | | | | | S | | + + + + + + | INTERPRETAT | [employer] | | [facility] | | | ION | Comprehensive Heme | | DIAGNOSTIC | | | | Sequencing: Mutation | | | | | | Screening by | | LABORATORIE | | | | Next-Generation | | S | | | | SequencingPatient Name: | | | | | | Nona Hopper | | | | | | AnnMedical Record | | | | | | Number: [id number] | | | | | | ID: [id number] | | | | | | Type: Blood Collection | | | | | | Date: 12/02/2018 | | | | | | INDICATION FOR TESTING: | | | | | | Newly diagnosed | | | | | | [id number] VARIANT | | | | | | COUNT: The following 4 | | | | | | variant(s) have been | | | | | | identified.GENOMIC | | | | | | ALTERATIONSFour variants | | | | | | of unknown significance | | | | | | are identified in this | | | | | | peripheral blood sample. | | | | | | The SETBP1 variant | | | | | | detected in this case is | | | | | | possibly germline in | | | | | | nature and its role in | | | | | | myeloid disease is | | | | | | undetermined.Variant(s) | | | | | | of Unknown Significance | | | | | | (Tier III)Gene: | | | | | | GDQ3Scyuexp: | | | | | | p.E6125NPfasrlf allele | | | | | | frequency (VAF): | | | | | | 53%Variant ID: | | | | | | [id number]; | | | | | | [id number], | | | | | | [id number], | | | | | | [id number] | | | | | | ([id number]):c.09988F>A; | | | | | | chr4:[id number]>AGene: | | | | | | XKHIL2Mxglfjm: | | | | | | p.W749PXevqfdj allele | | | | | | frequency (VAF): | | | | | | 50%Variant ID: | | | | | | [id number] | | | | | | ([id number]):c.2267C>T; | | | | | | [id number]>TGene: | | | | | | FMA5BVbfwfku: | | | | | | p.O691QGaalwje allele | | | | | | frequency (VAF): | | | | | | 50%Variant ID: | | | | | | [id number] | | | | | | ([id number]):c.494G>A; | | | | | | chrX:[id number]>AGene: | | | | | | AVE6Coyrden: | | | | | | p.U6576CVuirhbg allele | | | | | | frequency (VAF): | | | | | | 46%Variant ID: | | | | | | [id number]; | | | | | | [id number], | | | | | | [id number] | | | | | | ([id number]):c.3929C>T; | | | | | | [id number]>ACase | | | | | | reviewed by: CELI | | | | | | Ngoc Negron MD, | | | | | | PhD/HematopathologistTes | | | | | | t Details:This test is | | | | | | designed to detect | | | | | | alterations in a panel | | | | | | of 220 genes, many of | | | | | | which are known to play | | | | | | a role in leukemia and | | | | | | lymphoma pathogenesis, | | | | | | diagnosis, prognosis, | | | | | | response to therapy, | | | | | | disease monitoring, or | | | | | | inherited | | | | | | predisposition. All or | | | | | | selected coding exons | | | | | | and the canonical splice | | | | | | sites of the following | | | | | | genes are sequenced. No | | | | | | detectable alterations | | | | | | are identified in the | | | | | | following genes, unless | | | | | | otherwise listed | | | | | | above.ABL1 AKT1 ANKRD26 | | | | | | ARID1A ARID1B ASXL1 | | | | | | ASXL2 ATG2B VU ATRX | | | | | | BCL2 BCL6 BCOR BCORL1 | | | | | | BIRC3 BIRC6 BLM BRAF | | | | | | BRCA1 BRCA2 BRCC3 BRD4 | | | | | | BTK CALR CARD11 CASP10 | | | | | | CBL CBLB CBLC CCND1 | | | | | | CCND3 CCR4 CD27 CD79A | | | | | | CD79B CDH11 CDKN2A | | | | | | CDKN2C CEBPA CHD2 CHEK2 | | | | | | CREBBP CRLF2 CSF1R CSF3R | | | | | | CTCF CTLA4 CUX1 CXCR4 | | | | | | DAXX DDX41 DDX54 DHX15 | | | | | | DHX29 DIS3 DNAH5 DNAH9 | | | | | | DNAJC21 DNM2 DNMT1 | | | | | | DNMT3A DOCK8 DTX1 EED | | | | | | EFTUD1 EGFR ELANE EP300 | | | | | | ERBB4 ETNK1 ETV6 EZH2 | | | | | | FAM47A FAM5C FAS FAT1 | | | | | | FAT4 FBXO11 FBXW7 FLT3 | | | | | | FOXO1 FYN GATA1 GATA2 | | | | | | GATA3 GNA13 GNAS GNB1 | | | | | | GSKIP HAX1 LKOY4A6T | | | | | | HNRNPK HRAS HVCN1 ID3 | | | | | | IDH1 IDH2 IGLL5 IKZF1 | | | | | | IKZF3 IL7R IRF4 JAK1 | | | | | | JAK2 JAK3 KDM6A KIT KLF2 | | | | | | KLHL6 KMT2A KMT2C KMT2D | | | | | | KRAS LLGL2 LRRC4 LUC7L2 | | | | | | MAGT1 MAML1 MAP2K1 | | | | | | MECOM MED12 MEF2B MGA | | | | | | MLH1 MPL MSH2 MSH6 MYC | | | | | | MYD88 NAF1 NBN NF1 | | | | | | NFKBIE NOTCH1 NOTCH2 | | | | | | NPAT NPM1 NRAS NT5C2 | | | | | | NXF1 PAX5 PCLO PDGFRA | | | | | | PHF6 PIGA PIK3CD PIM1 | | | | | | PLCG1 PLCG2 PMS2 POT1 | | | | | | PPM1D PRDM1 PRKCB | | | | | | HWKA68A PRPF8 PRPS1 | | | | | | PSMB5 PTCH1 PTEN PTPN11 | | | | | | RAD21 RB1 RBBP6 RELN | | | | | | RHOA RIT1 RPS15 RTEL1 | | | | | | RUNX1 RYR1 RYR2 SAMD9 | | | | | | SAMD9L SAMHD1 SBDS | | | | | | SETBP1 SETD2 SETDB1 SF1 | | | | | | SF3A1 SF3B1 SH2B3 | | | | | | SMARCA2 SMARCB1 SMC1A | | | | | | SMC3 SOCS1 SPEN SPI1 | | | | | | SRP72 SRSF2 STAG2 STAT3 | | | | | | STAT5B STXBP2 SUZ12 SYK | | | | | | SYNE1 UUT5UT4 TCF3 TCF4 | | | | | | TERC TERT TET2 TNFAIP3 | | | | | | EVEGCI77 TP53 TRAF3 | | | | | | U2AF1 U2AF2 UBR5 USH2A | | | | | | VAV1 WAS WHSC1 WT1 XPO1 | | | | | | ZBTB7A ZRSR2 No | | | | | | KMT2A/MLL partial tandem | | | | | | duplication detected. | | | | | | Low Limit of Detection | | | | | | The low limit of | | | | | | detection for this assay | | | | | | is 2% VAF at a minimal | | | | | | 900 read depth (5% at | | | | | | 700 read depth and 7% at | | | | | | 500 read depth). This | | | | | | case has an average read | | | | | | depth of 1896. | | | | | | However, a small | | | | | | fraction (100 minus the | | | | | | percentage in the | | | | | | parenthesis) of the | | | | | | targeted regions of the | | | | | | following genes: DNMT1 | | | | | | (99%), SYNE1 (99%), | | | | | | KMT2D (99%), MAML1 | | | | | | (99%), ASXL1 (99%), PCLO | | | | | | (99%), DTX1 (99%), | | | | | | MED12 (99%), SPEN (99%), | | | | | | KMT2C (99%), DNAH9 | | | | | | (99%), NOTCH2 (99%), NF1 | | | | | | (99%), JAK1 (99%), | | | | | | SETBP1 (99%), ARID1B | | | | | | (99%), DNMT3A (99%), | | | | | | BRD4 (95%), RAD21 (94%), | | | | | | SPI1 (94%), STAT5B | | | | | | (91%), PMS2 (80%) have a | | | | | | higher low limit of | | | | | | detection of 10-15% VAF | | | | | | (if less than 250 read | | | | | | depth), or could harbor | | | | | | mutations that were | | | | | | missed by this analysis | | | | | | if the read depth is | | | | | | below 100. Further | | | | | | information on these | | | | | | low-coverage regions is | | | | | | available upon request. | | | | | | Low read counts may | | | | | | reflect changes in gene | | | | | | copy number or | | | | | | technical/stability | | | | | | issues with the sample. | | | | + + + + + + | TIER METHOD | Genomic variants have | | [facility] | | | | been classified in | | DIAGNOSTIC | | | | accordance with the 2017 | | | | | | standards and | | LABORATORIE | | | | guidelines recommended | | S | | | | by AMP/ASCO/CAP (1) and | | | | | | currently available | | | | | | resources. In brief, | | | | | | Tier I variants have | | | | | | strong evidence linking | | | | | | the genomic alteration | | | | | | to specific therapies, | | | | | | or are included in | | | | | | clinical practice | | | | | | guidelines or | | | | | | well-powered studies | | | | | | confirming their | | | | | | diagnostic, predictive, | | | | | | prognostic, and/or | | | | | | disease monitoring | | | | | | significance. Tier II | | | | | | variants have either | | | | | | targeted therapies | | | | | | available for different | | | | | | tumor types, ongoing | | | | | | preclinical or clinical | | | | | | trials of novel | | | | | | therapies, or have less | | | | | | strong evidence for | | | | | | their diagnostic, | | | | | | predictive, prognostic, | | | | | | and/or disease | | | | | | monitoring roles. Tier | | | | | | III variants (of unknown | | | | | | clinical significance) | | | | | | are neither observed in | | | | | | healthy populations nor | | | | | | have convincing | | | | | | published evidence of | | | | | | cancer association but | | | | | | cannot be classified as | | | | | | definitively benign or | | | | | | likely benign. We do | | | | | | not report benign or | | | | | | likely benign (Tier IV) | | | | | | variants. The | | | | | | classification of a | | | | | | variant is dependent on | | | | | | the specific clinical | | | | | | scenario, which could | | | | | | change in a different | | | | | | patient and/or in a new | | | | | | sample from the same | | | | | | patient, or if there are | | | | | | new data/information | | | | | | relevant to this | | | | | | variant. | | | | + + + + + + | METHOD(S) | Genomic DNA is extracted | | [facility] | | | | and purified from | | DIAGNOSTIC | | | | blood, bone marrow or | | | | | | other hematopoietic | | LABORATORIE | | | | tissue from fresh or | | S | | | | fixed samples. If the | | | | | | submitted sample is from | | | | | | FFPE, the specimen is | | | | | | examined microscopically | | | | | | and, if deemed helpful | | | | | | to enhance sensitivity, | | | | | | genomic DNA is extracted | | | | | | and purified from micro | | | | | | dissected, tumor-rich | | | | | | areas. Mutations are | | | | | | screened by massively | | | | | | parallel sequencing | | | | | | (next-generation | | | | | | sequencing) using a | | | | | | combination of | | | | | | multiplexed PCR | | | | | | (customized QIAseq | | | | | | targeted DNA panel with | | | | | | molecular barcodes) and | | | | | | sequencing on an | | | | | | Illumina platform | | | | | | (NextPicateersq 500 or 550). | | | | | | Sequencing data is then | | | | | | aligned against a | | | | | | reference genome [[id number]]. | | | | | | An in-house | | | | | | bioinformatics analysis | | | | | | pipeline has been used | | | | | | that employs multiple | | | | | | established variant | | | | | | calling tools | | | | | | (FreeBayes, MuTect2, and | | | | | | Scalpel) and variant | | | | | | annotation tools | | | | | | (Oncotator). The assay | | | | | | is validated according | | | | | | to AMP guidelines (2,3). | | | | | | With regard to | | | | | | insertions and | | | | | | deletions, this test is | | | | | | known to be biased | | | | | | toward detecting shorter | | | | | | alterations, and often | | | | | | to underestimate variant | | | | | | allele frequency (VAF) | | | | | | of these types of | | | | | | variants. Therefore, a | | | | | | supplementary non-biased | | | | | | size-based assay is | | | | | | concomitantly run to | | | | | | ensure that internal | | | | | | tandem duplication | | | | | | insertions in FLT3 exon | | | | | | 14 are not missed. | | | | | | Furthermore, a | | | | | | supplementary assay is | | | | | | concomitantly run to | | | | | | detect partial tandem | | | | | | duplications in | | | | | | KMT2A/MLL (aka MLL-PTD) | | | | | | if warranted by the | | | | | | clinicopathological | | | | | | findings of the patient. | | | | | | Sequencing often does | | | | | | not detect large | | | | | | deletions or | | | | | | duplications in other | | | | | | genes targeted on this | | | | | | panel. In addition, this | | | | | | test does not detect | | | | | | mutations in the | | | | | | regulatory regions, deep | | | | | | introns, or highly | | | | | | homologous regions | | | | | | containing pseudogenes | | | | | | and/or highly repetitive | | | | | | regions.This assay is | | | | | | intended to detect | | | | | | somatically-acquired | | | | | | variants in | | | | | | cancer-associated genes | | | | | | and is not intended to | | | | | | detect germline variants | | | | | | for the diagnosis of | | | | | | inherited cancer | | | | | | predisposition | | | | | | syndromes. If an | | | | | | inherited variant is | | | | | | suspected, other | | | | | | sequencing tests may be | | | | | | indicated, and genetic | | | | | | counseling may be | | | | | | warranted. | | | | + + + + + + | REFERENCES | 1. Mayra ROUSE, et al; 2017, J | | [facility] | | | | Mol Diagn. | | DIAGNOSTIC | | | | 19(1):4-23.2. Chidi | | | | | | ANGELINA et al; 2017, J Mol | | LABORATORIE | | | | Diagn. 19(3):341-365.3. | | S | | | | Shlomo S, et al; 2018, J | | | | | | Mol Diagn. 20(1):4-27.4. | | | | | | NCCN guidelines: | | | | | | https://www.nccn.org/pro | | | | | | fessionals/physician_gls | | | | | | /default.aspx5. The 2017 | | | | | | ELN recommendations: | | | | | | Blood. 2017; | | | | | | 129(4):424-447.6. The | | | | | | 2016 revision to the WHO | | | | | | classification: Blood. | | | | | | 2016; 127(20):9640-460. | | | | | | 7. Catalogue Of Somatic | | | | | | Mutations In Cancer: | | | | | | http://cancer.brandy.ac. | | | | | | uk/cosmic8. ClinVar: | | | | | | https://www.ncbi.nlm.nih | | | | | | .gov/clinvar/9. | | | | | | SANJU-Clinical | | | | | | Knowledgebase (CKB): | | | | | | https://ckb.[employer].org/10. | | | | | | CIViC: | | | | | | https://civicdb.org/home | | | | + + + + + + | DISCLAIMER | This test was developed | | [facility] | | | | and its performance | | DIAGNOSTIC | | | | characteristics | | | | | | determined by the [facility] | | LABORATORIE | | | | [facility] | | S | | | [...] | | | | | (CLIA). The [facility] | | | | | | Diagnostics | | | | | | Laboratories are fully | | | | | | licensed by the state of | | | | | | [place] under CLIA and | | | | | | are accredited by the | | | | | | [employer] | | | | | | Pathologists (CAP). | | | | | | Marine Meteorologist: | | | | | | Tayo Singletary, | | | | | | Isabela, Ph.DReviewed and | | | | | | electronically signed by | | | | | | Ngoc Negron | | | | | | ,PhD12/15/2018 5:41 PM' | | | | + + + + + + + + | Specimen | + + | Blood - Blood | | (substance) | + + + + + + + | Performing | Address | City/State/Zipcode | Phone Number | | Organization | | | | + + + + + | [facility] | [address] | [place] [address] | | | DIAGNOSTIC | [address] | | | | LABORATORIES | | | | + + + + + [facility] HLA BM RECIPIENT PANEL, DRAW & HOLD ONLY (12/02/2018 1:22 PM PDT) + + + + + + | Component | Value | Ref Range | Performed | Pathologist | | | | | At | Signature | + + + + + + | LABEL ONLY | Please see lab report | | [facility] | | | - LIT | for result. | | LABORATORY | | | | | | SERVICES, | | | | | | CORE | | + + + + + + + + | Specimen | + + | Blood - Blood | | (substance) | + + + + + + + | Performing | Address | City/State/Zipcode | Phone Number | | Organization | | | | + + + + + | [facility] | [address] | [place] [address] | | | SERVICES, CORE | [address] | | | + + + + + COMPLETE METABOLIC SET (NA,K,CL,CO2,BUN,CREAT,GLUC,CA,AST,ALT,BILI TOTAL,ALK PHOS,ALB,PROT TOTAL) (12/02/2018 1:22 PM PDT) + +---------+ + + + | Component | Value | Ref Range | Performed | Pathologist | | | | | At | Signature | + +---------+ + + + | GLUCOSE, | 91 | 70 - 99 mg/dL | [facility] | | | PLASMA | | | LABORATORY | | | (LAB) | | | SERVICES, | | | | | | CORE | | + +---------+ + + + | BUN, PLASMA | 22 (H) | 6 - 20 mg/dL | [facility] | | | (LAB) | | | LABORATORY | | | | | | SERVICES, | | | | | | CORE | | + +---------+ + + + | CREATININE | 0.72 | 0.60 - 1.10 | [facility] | | | PLASMA | | mg/dL | LABORATORY | | | (LAB) | | | SERVICES, | | | | | | CORE | | + +---------+ + + + | EGFR | >60 | >60 mL/min | [facility] | | | - | | | LABORATORY | | | MEXICAN | | | SERVICES, | | | | | | CORE | | + +---------+ + + + | EGFR NON | >60 | >60 mL/min | [facility] | | | -ERNAE | | | LABORATORY | | | RICAN | | | SERVICES, | | | | | | CORE | | + +---------+ + + + | SODIUM, | 134 (L) | 136 - 145 | [facility] | | | PLASMA | | mmol/L | LABORATORY | | | (LAB) | | | SERVICES, | | | | | | CORE | | + +---------+ + + + | POTASSIUM, | 3.5 | 3.4 - 5.0 | [facility] | | | PLASMA | | mmol/L | LABORATORY | | | (LAB) | | | SERVICES, | | | | | | CORE | | + +---------+ + + + | CHLORIDE, | 100 | 97 - 108 mmol/L | [facility] | | | PLASMA | | | LABORATORY | | | (LAB) | | | SERVICES, | | | | | | CORE | | + +---------+ + + + | TOTAL CO2, | 31 | 21 - 32 mmol/L | [facility] | | | PLASMA | | | LABORATORY | | | (LAB) | | | SERVICES, | | | | | | CORE | | + +---------+ + + + | CALCIUM, | 9.2 | 8.6 - 10.2 | [facility] | | | PLASMA | | mg/dL | LABORATORY | | | (LAB) | | | SERVICES, | | | | | | CORE | | + +---------+ + + + | CALCIUM(ALB | 9.3 | 8.6 - 10.2 | [facility] | | | CORRECTED) | | mg/dL | LABORATORY | | | | | | SERVICES, | | | | | | CORE | | + +---------+ + + + | BILIRUBIN | 0.4 | 0.3 - 1.2 mg/dL | [facility] | | | TOTAL | | | LABORATORY | | | | | | SERVICES, | | | | | | CORE | | + +---------+ + + + | TOTAL | 7.8 | 6.4 - 8.2 g/dL | [facility] | | | PROTEIN, | | | LABORATORY | | | PLASMA | | | SERVICES, | | | (LAB) | | | CORE | | + +---------+ + + + | ALBUMIN, | 3.9 | 3.5 - 4.7 g/dL | [facility] | | | PLASMA | | | LABORATORY | | | (LAB) | | | SERVICES, | | | | | | CORE | | + +---------+ + + + | ALK PHOS | 105 (H) | 42 - 98 U/L | [facility] | | | | | | LABORATORY | | | | | | SERVICES, | | | | | | CORE | | + +---------+ + + + | AST(SGOT) | 12 | <=41 U/L | [facility] | | | | | | LABORATORY | | | | | | SERVICES, | | | | | | CORE | | + +---------+ + + + | ALT (SGPT) | 23 | <=60 U/L | [facility] | | | | | | LABORATORY | | | | | | SERVICES, | | | | | | CORE | | + +---------+ + + + | ANION GAP | 3 (L) | 4 - 11 mmol/L | [facility] | | | | | | LABORATORY | | | | | | SERVICES, | | | | | | CORE | | + +---------+ + + + | ANION | 3 (L) | 4 - 11 mmol/L | [facility] | | | GAP(ALB | | | LABORATORY | | | CORRECTED) | | | SERVICES, | | | | | | CORE | | + +---------+ + + + | POTASSIUM | No Hemo | | [facility] | | | CMNT | | | LABORATORY | | | | | | SERVICES, | | | | | | CORE | | + +---------+ + + + | BILI T CMNT | No Hemo | | [facility] | | | | | | LABORATORY | | | | | | SERVICES, | | | | | | CORE | | + +---------+ + + + | AST CMNT | No Hemo | | [facility] | | | | | | LABORATORY | | | | | | SERVICES, | | | | | | CORE | | + +---------+ + + + + + | Specimen | + + | Blood - Blood | | (substance) | + + + + + | Narrative | Performed At | + + + | GFR is estimated using the MDRD equation recommended by the National | [facility] | | Kidney Disease Education Program. Estimated GFR Interpretive | LABORATORY | | Information: <60 mL/min/1.73 sq m Chronic Kidney | SERVICES, CORE | | Disease <15 mL/min/1.73 sq m Kidney Failure | | | Estimated GFR greater than 60 mL/min/1.73 sq m is of limited clinical | | | value. The MDRD equation is not valid in the following situations: - | | | Patients under 18 years of age - Severe malnutrition or obesity - | | | Vegetarian diet - Rapidly changing kidney function - Amputees, | | | paraplegics, or other muscle-wasting diseses | | + + + + + + + + | Performing | Address | City/State/Zipcode | Phone Number | | Organization | | | | + + + + + | [facility] | [address] | [place] [address] | | | SERVICES, [place] | [address] | | | + + + + + documented in this encounter Visit Diagnoses + + | Diagnosis | + + | MDS (myelodysplastic syndrome) (HCC) - Primary Myelodysplastic syndrome, unspecified | + + documented in this encounter
--- OUTSIDE RECORDS SUMMARY | ~2020-03-12 | XMS | Encounter Summary ---
Demographics + + + | Address | [address] | | | [place] [address] | + + + | Home Phone | | + + + | Preferred Language | Unknown | + + + | Marital Status | | + + + | Denominational Affiliation | Unknown | + + + | Race | White | + + + | Ethnic Group | Not or | + + + Author + + + | Author | [facility] | | | and [place] | + + + | Organization | [facility] | | | and [place] | + + + | Address | Unknown | + + + | Phone | Unavailable | + + + Support + + + + + | Name | Relationship | Address | Phone | + + + + + | Claudia Cota | ECON | [address] | | | | | [place] | | | | | [address] | | + + + + + Care Team Providers + +------+ + | Care Tube Builder Airplane Name | Role | Phone | + +------+ + | Meredith Sanchez | PCP | | | PA | | | + +------+ + Reason for Visit + +--------+ + | Reason | Onset | Comments | | | Date | | + +--------+ + | Leukemia | 01/24/ | | | | 2018 | | + +--------+ + Encounter Details +--------+ + + + + | Date | Type | Department | Care Team | Description | +--------+ + + + + | 01/24/ | Telephone | [facility] | [facility], | Leukemia | | 2019 | | [facility] | Tripp Schultz MD [address] | | | | | [facility] [address] | [facility] | | | | | [address] | [address] [place], [place] | | | | | [place] [address] | [address] | | | | | [phone] | | | +--------+ + + + [...] this encounter Miscellaneous Notes Telephone Encounter - Tripp Sequeira MD - 01/24/2019 2:[address] De La Torre cannot find donor. Recommends continue with azacitidine. CARRIE Post at [facility] made aware. Electronically signed by: Tripp Sequeira MD 01/24/2019 14:24 elephone Anju Marmolejo - 01/24/2019 1:41 PM PDTDrNicole Sequeira: Please call Dr. Coleman @ [facility] regarding Kelsey Hopper. ([phone]) Thank you. documented in this encounter Plan of Treatment Not on filedocumented as of this encounter Visit Diagnoses Not on filedocumented in this encounter"
--- OUTSIDE RECORDS SUMMARY | ~2020-03-12 | XMS | Encounter Summary ---
Demographics + + + | Address | [address] | | | [place] [address] | + + + | Home Phone [...] Team Providers + +------+ + | Care Residence Leasing Agent Name | Role | Phone | + +------+ + | Meredith Sanchez | PCP | | + +------+ + Encounter Details +--------+ + + + + | Date | Type | Department | Care Team | Description | +--------+ + + + + | 04/18/ | Pharmacy | Pharmacy @ [facility] | | | | 2019 | Visit | [address] | | | | | | Reji Callahan Mailcode: | | | | | | [facility] | | | | | | and Healing, | | | | | | [address] | | | | | | [place], [place] | | | | | | [address] | | | +--------+ + + + [...]
--- OUTSIDE RECORDS SUMMARY | ~2020-03-12 | XMS | Encounter Summary ---
Demographics + + + | Address | [address] | | | [place] [address] | + + + | Home Phone | | + + + | Preferred Language | Unknown | + + + | Marital Status | Single | + + + | Denominational Affiliation | NRP | + + + [...] Team Providers + +------+ + | Care Long Distance Billing Operator Name | Role | Phone | + +------+ + | Meredith Sanchez | PCP | | + +------+ + Reason for Visit + +--------+ + | Reason | Onset | Comments | | | Date | | + +--------+ + | Medication Questions | 04/08/ | Temperarily stop Medication question | | | 2018 | | + +--------+ + Encounter Details +--------+ + + + + | Date | Type | Department | Care Team | Description | +--------+ + + + + | 04/08/ | Telephone | [facility] | Sejal De La Torre | Medication Questions | | 2019 | | Clinics at S | N, DO [address] [facility] | (Temperarily stop | | | | [facility] [address] | Medication question) | | | | [facility] | [place], [place] | | | | | Health and Healing, | [address] | | | | | [facility] [address] | [phone] | | | | | [place], [place] | | | | | | [address] | | | | | | [phone] | | | +--------+ + + + [...] Notes Telephone Encounter - Rosalie Donovan - 04/08/2019 9:40 AM PDT Pt called asking if she needed to stop her apixaban (tablet) ELIQUIS Before she has her central line placed on 04/15, please call her and let her know at . documented in this en counter Plan of Treatment Not on filedocumented as of this encounter Visit Diagnoses Not on filedocumented in this encounter"
--- OUTSIDE RECORDS SUMMARY | ~2020-03-12 | XMS | Encounter Summary ---
Demographics + + + | Address | [address] | | | [place] [address] | + + + | Home Phone [...] + + + | Author | [facility] | + + + | Organization | [facility] | + + + | Address | Unknown | + + + | Phone | Unavailable | + + + Support + + +---------+ + | Name | Relationship | Address | Phone | + + +---------+ + | Claudia Cota | ECON | Unknown | | + + +---------+ + Care Team Providers + +------+ + | Care Industrial Insulator Name | Role | Phone | + [...] | | | [facility] [place] | [place] [address] | [address] | | | | | [facility] | Phone: | Phone: | | | | | 2 | [phone] | [phone] | | | | | | Fax: | Fax: | | | | | | [phone] | [phone] | +--------+---------+ + + + + Encounter Details +--------+ + + + + | Date | Type | Department | Care Team | Description | +--------+ + + + + | 02/17/ | Hospital | [facility] | Rn, Fast Track | Canceled (Provider | | 2019 | Encounter | [facility] | [address] | Request) | | | | [facility] [address] | [place] [address] | | | | | [facility] | | | | [facility], | | | | | | [address] | | | | | | [place], [place] | | | | | | [address] | | | | | | [phone] | | | +--------+ + + + [...]
--- OUTSIDE RECORDS SUMMARY | ~2020-03-12 | XMS | Encounter Summary ---
Demographics + + + | Address | [address] | | | [place] [address] | + + + | Home Phone [...] Team Providers + +------+ + | Care Estate Attorney Name | Role | Phone | + [...] Closed | | Interventiona | Diagnoses | Wil, | Boris Body | | | | l Radiology | MDS | Sejal [place], | s [address] | | | | | (myelodyspla | DO [address] | [address] | | | | | stic | [address] | Melly Lujan | | | | | syndrome) | Melly Lujan | Mailcode: | | | | | (HCC) | [place], [place] | [address] | | | | | Procedures | [address] [facility] | | | | | IR CENTRAL | Phone: | Hospital | | | | | VENOUS | [phone] | [facility] | | | | | ACCESS | Fax: | [place], [place] | | | | | PROCEDURE | [phone] | [address] | | | | | [place] INSERT | | Phone: | | | | | NON-TUNNEL | | [phone] | | | | | CV CATH,>4 | | Fax: | | | | | Y/O [place] | | [phone] | | | | | INSERT | | | | | | | TUNNELED CV | | | | | | | CATH,>4 Y/O | | | | | | | [place] | | | | | | | FLUOROGUIDE | | | | | | | FOR VEIN | | | | | | | DEVICE [place] | | | | | | | US | | | | | | | GUIDE,VASCUL | | | | | | | AR ACCESS | | | +--------+--------+ + + + + Encounter Details +--------+ + + + + | Date | Type | Department | Care Team | Description | +--------+ + + + + | 03/10/ | Still Worker Helper | [facility] | Sejal De La Torre | 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 | | Clinics at S | N, DO [address]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) | | | | [facility] [address] | (Primary Dx) | | | | [facility] | [place], [place] | | | | | Health and Healing, | [address] | | | | | [address] | [phone] | | | | | [place], [place] | | | | | | [address] | | | | | | [phone] | | | +--------+ + + + [...] on filedocumented as of this encounter Results IR CENTRAL VENOUS ACCESS PROCEDURE (04/15/2019 12:08 PM PDT) + + | Specimen | + + | | + + + + + | Narrative | Performed At | + + + | Procedure: Left Chest Groshong Tunneled Central Venous Catheter | [facility] | | Placement Primary metal bench patternmaker: Nathan Mena MD Dining Car Server | RADIOLOGY VOICE | | attending metal bench patternmaker: Pee Hebert M.D. Preoperative | RECOGNITION 2 | | diagnosis: Myelodysplastic syndrome Postoperative diagnosis: Same | | | Operations: Operation 1. Ultrasound guided puncture left | | | internal jugular vein. Operation 2. Antegrade tunneling of | | | central venous catheter on left anterior chest wall. Operation 3. | | | Insertion of 9.5F dual lumen Groshong central venous catheter into | | | the SVC. Indications: 53 yo female with MDS presents for | | | Groshong catheter placement for stem cell transplant. Procedure: | | | The patient, procedure, and allergies were confirmed in the | | | presence of the patient by the attending.The attending physician was | | | present for the entire procedure. Written informed consent was | | | obtained in a PARQ conference with the patient. The procedure was | | | performed with moderate sedation. The patient was prepped and | | | draped in the usual manner. US was performed to evaluate and select | | | vascular access and an image recorded and archived documenting | | | patency. Realtime US was utilized for visualization of needle entry | | | into the left internal jugular vein. A 21 g needle was advanced into | | | the vein followed by a 0.018" wire. The needle was exchanged for a 5F | | | micropuncture sheath. A 0.035" wire was advanced into the IVC. The | | | micropuncture sheath was exchanged for a peel away sheath. Local | | | anesthetic was administered to the right anterior chest wall and the | | | catheter tunneled in antegrade fashion utilizing sharp and blunt | | | technique. The 9.5F dual lumen Groshong central venous catheter was | | | then inserted through the sheath and positioned with its tip at the | | | cavo-atrial junction with fluoroscopy. The hubs were connected and | | | the catheter was flushed. The neck incision was closed with glue. | | | The catheter was sutured in place at skin exit site. A dry sterile | | | dressing was applied. Digital radiograph was obtained at the | | | termination of the procedure. Fluoroscopy time: 1.1 min Total | | | contrast: 0 ml Moderate sedation was directly supervised by the | | | attending physician and administered by the dedicated RN. | | | Intra-service lwum-ih-jvem time: 15 minutes Versed 2 mg Fentanyl 100 | | | mcg Findings: US demonstrated the left internal jugular vein | | | is patent. Successful placement of 9.5F dual lumen Groshong | | | central venous catheter via left internal jugular vein access with tip | | | at the cavo-atrial junction in tunneled fashion. Impression: | | | 1. Patent left internal jugular vein. 2. Placement of 9.5F dual | | | lumen Groshong central venous catheter tunneled fashion via left | | | internal jugular vein. 3. Catheter tip is at cavo-atrial | | | junction and is ready for immediate use. 4. No evidence of | | | pneumothorax on completion digital image. I have personally | | | reviewed the images and, if necessary, edited the report. I agree with | | | the report as now presented. Final signature: Pee Hebert | | | 04/15/2019 1:10 PM Preliminary: Pee Hebert MD | | | Dictation initiated: Pee Hebert MD 04/15/2019 1:06 PM | | + + + + + | Procedure Note | + + | Service Account, Radiant Res In Interface - 04/15/2019 1:11 PM PDT Procedure: Left | | Chest Groshong Tunneled Central Venous Catheter Placement Primary metal bench patternmaker: Nathan Bell | | MD Rajesh Dining Car Server attending metal bench patternmaker: Pee Hebert M.D. Preoperative | | diagnosis: Myelodysplastic syndrome Postoperative diagnosis: Same Operations: Operation | | 1. Ultrasound guided puncture left internal jugular vein. Operation 2. Antegrade | | tunneling of central venous catheter on left anterior chest wall. Operation 3. | | Insertion of 9.5F dual lumen Groshong central venous catheter into the SVC. Indications: | | 53 yo female with MDS presents for Groshong catheter placement for stem cell | | transplant. Procedure: The patient, procedure, and allergies were confirmed in the | | presence of the patient by the attending.The attending physician was present for the | | entire procedure. Written informed consent was obtained in a PARQ conference with the | | patient. The procedure was performed with moderate sedation. The patient was prepped | | and draped in the usual manner. US was performed to evaluate and select vascular access | | and an image recorded and archived documenting patency. Realtime US was utilized for | | visualization of needle entry into the left internal jugular vein. A 21 g needle was | | advanced into the vein followed by a 0.018" wire. The needle was exchanged for a 5F | | micropuncture sheath. A 0.035" wire was advanced into the IVC. The micropuncture sheath | | was exchanged for a peel away sheath. Local anesthetic was administered to the right | | anterior chest wall and the catheter tunneled in antegrade fashion utilizing sharp and | | blunt technique. The 9.5F dual lumen Groshong central venous catheter was then inserted | | through the sheath and positioned with its tip at the cavo-atrial junction with | | fluoroscopy. The hubs were connected and the catheter was flushed. The neck incision | | was closed with glue. The catheter was sutured in place at skin exit site. A dry sterile | | dressing was applied. Digital radiograph was obtained at the termination of the | | procedure. Fluoroscopy time: 1.1 minTotal contrast: 0 ml Moderate sedation was | | directly supervised by the attending physician and administered by the dedicated | | RN.Intra-service jemx-rg-ajie time: 15 minutesVersed 2 mgFentanyl 100 mcg Findings: US | | demonstrated the left internal jugular vein is patent. Successful placement of 9.5F | | dual lumen Groshong central venous catheter via left internal jugular vein access with | | tip at the cavo-atrial junction in tunneled fashion. Impression: 1. Patent left | | internal jugular vein. 2. Placement of 9.5F dual lumen Groshong central venous catheter | | tunneled fashion via left internal jugular vein. 3. Catheter tip is at cavo-atrial | | junction and is ready for immediate use. 4. No evidence of pneumothorax on completion | | digital image. I have personally reviewed the images and, if necessary, edited the | | report. I agree with the report as now presented. Final signature: Pee Hebert | | 04/15/2019 1:10 PM Preliminary: Pee Hebert MD Dictation initiated: | | Pee Hebert MD 04/15/2019 1:06 PM | |Moderate sedation was directly supervised by the attending physician and administered by e dedicated RN. | |Intra-service dqqq-hq-ogyh time: 15 minutes | |Versed 2 mg | |Fentanyl 100 mcg | | | |Findings: | | | |US demonstrated the left internal jugular vein is patent. | | | |Successful placement of 9.5F dual lumen Groshong central venous catheter via left internal jugular vein access with tip at the cavo-atrial junction in tunneled fashion. | | | |Impression: | | | |1. Patent left internal jugular vein. | | | |2. Placement of 9.5F dual lumen Groshong central venous catheter tunneled fashion via left internal jugular vein. | | | |3. Catheter tip is at cavo-atrial junction and is ready for immediate use. | | | |4. No evidence of pneumothorax on completion digital image. | | | |I have personally reviewed the images and, if necessary, edited the report. I agree with [facility] as now presented. | | | |Final signature: Pee Hebert MD 04/15/2019 1:10 PM | |Preliminary: Pee Hebert MD | |Dictation initiated: Pee Hebert MD 04/15/2019 1:06 PM | + + + +---------+ + [...]
--- OUTSIDE RECORDS SUMMARY | ~2020-03-12 | XMS | Encounter Summary ---
Demographics + + + | Address | [address] | | | [place] [address] | + + + | Home Phone [...] Team Providers + +------+ + | Care Intranet Support Name | Role | Phone | + [...] | | | | | syndrome) | [facility] | Health and | | | | | (HCC) | [place], [place] | Healing, | | | | | Procedures | [address] | [address] | | | | | [place] | Phone: | [place], [place] | | | | | OFFICE/OUTPT | [phone] | [address] | | | | | | Fax: | Phone: | | | | | VISIT,EST,LE | [phone] | [phone] | | | | | VL IV ND | | Fax: | | | | | EST PATIENT | | [phone] | | | | | LEVEL V | | | +--------+--------+ + + + + Encounter Details +--------+ + + + + | Date | Type | Department | Care Team | Description | +--------+ + + + + | 06/21/ | Hospital | [facility] | | | | 2019 | Encounter | Clinics at S | | | | | | [facility] [address] | | | | | | [facility] | | | | | | Health and Healing, | | | | | | [address] | | | | | | [place], [place] | | | | | | [address] | | | | | | [phone] | | | +--------+ + + + [...] + + + | Blood Pressure | 98/58 | 06/21/2019 9:34 AM | | | | | PST | | + + + + + | Pulse | 96 | 06/21/2019 9:34 AM | | | | | PST | | + + + + + | Temperature | 36.3 C (97.4 F) | 06/21/2019 9:34 AM | | | | | PST | | + + + + + | Respiratory Rate | 24 | 06/21/2019 9:34 AM | | | | | PST | | + + + + + | Oxygen Saturation | 96% | 06/21/2019 9:34 AM | | | | | PST | | + + + + + | Inhaled Oxygen | - | - | | | Concentration | | | | + + + + + | Weight | 58.2 kg (128 lb 6 | 06/21/2019 9:34 AM | | | | oz) | PST | | + + + + + | Height | 160 cm (5' 3") | 06/21/2019 9:34 AM | | | | | PST | | + + + + + | Body Mass Index | 22.74 | 06/21/2019 9:34 AM | | | [...] documented as of this encounter Progress Notes Tisha Anton RN - 06/21/2019 9:20 AM PST INFUSION NURSING NOTE Allergies: Nona is allergic to cefepime and sulfa (sulfonamide antibiotics). Narrative: Nona is a 53 yo pt with a history of MDS, currently day +60 of transplant, here for labs and supportive care. Nursing Assessment: Fever/Chills/Infection: No SOB / Cough: Yes, dry cough at night. Dizziness/Lightheaded/Fatigue: Yes, generalized fatigue. Signs/Symptoms Bleeding: No Neuropathy: No Mucositis: No Nausea/Vomiting: Yes, with morning medications. Takes compazine as needed. Appetite: Inade quate. Diarrhea/Constipation: Yes, diarrhea for the last three days, about 1-4 episodes per day. I modium helping. PO Fluid Intake: Less than 2L. Rash/Skin sores/Edema: No Urinary Issues: No Pain: No Vascular Access: Groshong accessed per protocol. Good blood return noted. Appropriate waste discarded. Meghna portillo drawn and sent. Groshong pulse flushed with 20 mL NS. Immunosuppression: Nona reports she currently takes Tacrolimus 1 mg every morning and 0.5 mg every evening. This is the correct dose according to her most recent dose adjustment. Nona took her last dose at 0 (time) on 06/20/19 (date). Per Orders: Infusion Plan: -1L NS given IV over 1 hr. -4g Magnesium Sulfate for a magnesium level of 1.3. Supportive Plan: No orders. Chemo Plan: No orders. Patient was reminded to call clinic with temp > 100.4, chills, s/s of bleeding or uncontrol led N/V/D/C. Patient d/c d ambulatory. Tisha Anton RN documented in this encounter Plan of Treatment Not on filedocumented as of this encounter Procedures + +--------+ + + + | Procedure Name | Priori | Date/Time | Associated Diagnosis | Comments | | | ty | | | | + +--------+ + + + | [facility] - MAGNESIUM, | Routin | 06/21/2019 | S/P cord blood | Results for this | | PLASMA | e | 9:33 AM | transplantation MDS | procedure are in the | | | | PST | (myelodysplastic | results section. | | | | | syndrome) ([facility] | | + +--------+ + + + | [facility] - PHOSPHORUS, | Routin | 06/21/2019 | S/P cord blood | Results for this | | PLASMA | e | 9:33 AM | transplantation MDS | procedure are in the | | | | PST | (myelodysplastic | results section. | | | | | syndrome) ([facility]) | | + +--------+ + + + | [facility] - LDH TOTAL, | Routin | 06/21/2019 | S/P cord blood | Results for this | | PLASMA | e | 9:33 AM | transplantation MDS | procedure are in the | | | | PST | (myelodysplastic | results section. | | | | | syndrome) ([facility]) | | + +--------+ + + + | CBC AND AUTO DIFF | Routin | 06/21/2019 | S/P cord blood | Results for this | | | e | 9:33 AM | transplantation MDS | procedure are in the | | | | PST | (myelodysplastic | results section. | | | | | syndrome) ([facility]) | | + +--------+ + + + | [facility] - COMPLETE | Routin | 06/21/2019 | S/P cord blood | Results for this | | METABOLIC SET | e | 9:33 AM | transplantation MDS | procedure are in the | | | | PST | (myelodysplastic | results section. | | | | | syndrome) ([facility]) | | + +--------+ + + + | [facility] CBC W | Routin | 06/21/2019 | S/P cord blood | Results for this | | DIFFERENTIAL | e | 9:33 AM | transplantation MDS | procedure are in the | | | | PST | (myelodysplastic | results section. | | | | | syndrome) ([facility]) | | + +--------+ + + + | CMV PCR | Routin | 06/21/2019 | S/P cord blood | Results for this | | QUANTITATION, PLASMA | e | 9:33 AM | transplantation MDS | procedure are in the | | | | PST | (myelodysplastic | results section. | | | |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) | | + +--------+ + + + | TACROLIMUS, WHOLE | Routin | 06/21/2019 | S/P cord blood | Results for this | | BLOOD | e | 9:33 AM | transplantation MDS | procedure are in the | | | | PST | (myelodysplastic | results section. | | | |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) | | + +--------+ + + + documented in this encounter Results CBC AND AUTO DIFF (06/21/2019 9:33 AM PST) + + + + + + | Component | Value | Ref Range | Performed | Pathologist | | | | | At | Signature | + + + + + + | WHITE CELL | 4.52 | 3.50 - 10.80 | [facility] | | | COUNT | | K/cu mm | LABORATORY | | | | | | SERVICES, | | | | | | [facility] | [facility] | | | | [facility] | | + + + + + + | RED CELL | 3.50 (L) | 4.00 - 5.20 | [facility] | | | COUNT | | M/cu mm | LABORATORY | | | | | | SERVICES, | | | | | | [facility] + | | | | | | [facility] | | + + + + + + | HEMOGLOBIN | 10.0 (L) | 12.0 - 16.0 | [facility] | | | | | g/dL | LABORATORY | | | | | | SERVICES, | | | | | | [facility] + | | | | | | [facility]AL[facility] | | + + + + + + | HEMATOCRIT | 31.5 (L) | 36.0 - 46.0 % | [facility] | | | | | | LABORATORY | | | | | | SERVICES, | | | | | | [facility] + | | | | | | [facility]AL[facility] | | + + + + + + | MCV | 90.0 | 80.0 - 100.0 fL | [facility] | | | | | | LABORATORY | | | | | | SERVICES, | | | | | | [facility] + | | | | | | [facility]ALING | | + + + + + + | MCHC | 31.7 (L) | 32.0 - 36.0 | [facility] | | | | | g/dL | LABORATORY | | | | | | SERVICES, | | | | | | [facility] + | | | | | | [facility]ALING | | + + + + + + | RDW SD | 55.8 (H) | 35.1 - 46.3 fL | [facility] | | | | | | LABORATORY | | | | | | SERVICES, | | | | | | [facility] + | | | | | | [facility]AL[facility] | | + + + + + + | PLATELET | 165Comment: | 150 - 400 K/cu | [facility] [...] + + + + | NEUTROPHIL | 56.3 | 50.0 - 70.0 % | [facility] | | | % | | | LABORATORY | | | | | | SERVICES, | | | | | | [facility] | [facility] + | | | | | | [facility]ALING | | + + + + + + | LYMPHOCYTE | 16.4 (L) | 18.0 - 42.0 % | [facility] | | | % | | | LABORATORY | | | | | | SERVICES, | | | | | | [facility] | [facility] + | | | | | | [facility]ALING | | + + + + + + | MONOCYTE % | 16.8 (H) | 3.5 - 9.0 % | [facility] | | | | | | LABORATORY | | | | | | SERVICES, | | | | | | [facility] | [facility] + | | | | | | [facility]ALING | | + + + + + + | EOS % | 8.8 (H) | 1.0 - 3.0 % | [...] + + + + | IG% | 1.3 (H) | 0.0 - 1.0 % | [facility] | | | | | | LABORATORY | | | | | | SERVICES, | | | | | | [facility] + | | | | | | [facility]ALING | | + + + + + + | NEUTROPHIL | 2.54 | 1.80 - 7.70 | [facility] | | | # | | K/cu mm | LABORATORY | | | | | | SERVICES, | | | | | | [facility] | [facility] + | | | | | | HEALING | | + + + + + + | NEUTROPHIL | 2.54Comment: Preliminary | 1.80 - 7.70 | [facility] [...] + + + + | LYMPHOCYTE | 0.74 (L) | 1.00 - 4.80 | [facility] | | | # | | K/cu mm | LABORATORY | | | | | | SERVICES, | | | | | | [facility] | [facility] + | | | | | | [facility]ALING | | + + + + + + | MONOCYTE # | 0.76 | 0.10 - 0.90 | [facility] | | | | | K/cu mm | LABORATORY | | | | | | SERVICES, | | | | | | [facility] | [facility] + | | | | | | HEALING | | + + + + + + | EOS # | 0.40 | 0.00 - 0.50 | [facility] | [...] + + + + | IG# | 0.06 | 0.00 - 0.10 | [facility] | [...] | + + + + + | [facility] | [address] | [place] [address] | | | SERVICES, [facility] | | | | [facility] + [facility] | | | | + + + + + [facility] - COMPLETE METABOLIC SET (06/21/2019 9:33 AM PST) + +---------+ + + + | Component | Value | Ref Range | Performed | Pathologist | | | | | At | Signature | + +---------+ + + + | GLUCOSE, | 130 (H) | 70 - 99 mg/dL | [facility] | | | PLASMA | | | LABORATORY | | | (LAB) | | | SERVICES, | | | | | | [facility] | [facility] | [facility] + | | | | | | [facility]ALING | | + +---------+ + + + | BUN, PLASMA | 16 | 6 - 20 mg/dL | [facility] | | | (LAB) | | | LABORATORY | | | | | | SERVICES, | | | | | | [facility] + | | | | | | HEALING | | + +---------+ + + + | CREATININE | 0.98 | 0.60 - 1.10 | [facility] | [...] | LABORATORY | | | [place] | | | SERVICES, | | | | | | [facility] | [facility] + | | | | | | [facility]ALING | | + +---------+ + + + | EGFR NON | 59 (L) | >60 mL/min | [...] +---------+ + + + | POTASSIUM, | 3.6 [...] + + + | TOTAL CO2, | 18 (L) | 21 - 32 mmol/L | [...] +---------+ + + + | CALCIUM(ALB | 9.1 | 8.6 - 10.2 | [facility] | | | CORRECTED) | | mg/dL | LABORATORY | | | | | | SERVICES, | | | | | | [facility] + | | | | | | [facility]ALING | | + +---------+ + + + | BILIRUBIN | 1.4 (H) | 0.3 - 1.2 mg/dL | [facility] | | | TOTAL | | | LABORATORY | | | | | | SERVICES, | | | | | | [facility] | | [facility] + | | | | | | HEALING | | + +---------+ + + + | TOTAL | 6.3 [...] +---------+ + + + | ALBUMIN, | 3.6 | 3.5 - 4.7 g/dL | [facility] | | | PLASMA | | | LABORATORY | | | (LAB) | | | SERVICES, | | | | | | [facility] | [facility] | [facility] + | | | | | | HEALING | | + +---------+ + + + | ALK PHOS | 80 | 42 - 98 U/L | [facility] | | | | | | LABORATORY | | | | | | SERVICES, | | | | | | [facility] + | | | | | | [facility]ALING | | + +---------+ + + + | AST(SGOT) | 15 [...] +---------+ + + + | BUN/CREATIN | 16 | 8 - 25 | [facility] | | | INE RATIO | | | LABORATORY | | | | | | SERVICES, | | | | | | [facility] + | | | | | | HEALING | | + +---------+ + + + | GLOBULIN | 2.7 | 2.3 - 3.5 gm/dL | [facility] [...] MDRD equation recommended by the National | [facility] | | Kidney Disease Education [...] LABORATORY | [address] | [place] [address] | | | SERVICES, [facility] | | | | | [facility] + [facility] | | | | + + + + + [facility] - LDH TOTAL, PLASMA (06/21/2019 9:33 AM PST) + +---------+ + + + | Component | Value | Ref Range | Performed | Pathologist | | | | | At | Signature | + +---------+ + + + | LD TOTAL, | 161 | <=250 U/L | [facility] | | [...] LABORATORY | [address] | [place] [address] | | | SERVICES, [facility] | | | | [facility] + [facility]AL[facility] | | | | + + + + + [facility] - MAGNESIUM, PLASMA (06/21/2019 9:33 AM PST) + +---------+ + + + [...] LABORATORY | [address] | [place] [address] | | | SERVICES, [facility] | | | | [facility] + [facility]AL[facility] | | | | + + + + + [facility] - PHOSPHORUS, PLASMA (06/21/2019 9:33 AM PST) + +-------+ + + + [...] | + + + + + | [employer] | [address] | [place] [address] | | | SERVICES, [facility] | | | | [facility] + [facility]AL[facility] | | | | + + + + + CMV PCR QUANTITATION, PLASMA (06/21/2019 9:33 AM PST) + + + + + [...] | | | characteristics determined by the [facility] | | | [facility]. It has not been cleared or approved by | | | the Food and Drug Administration. FDA approval is not required for | | | clinical use of this test, and therefore validation was done as | | | required under the requirements of the Clinical Laboratory Improvement | | | Act of 1988. The [facility] | | | Diagnostic Center is a fully licensed and/or accredited clinical | | | laboratory under CLIA, CAP, and the [facility]. | | + + + + + + + + | Performing | Address | City/State/Zipcode | Phone Number | | Organization | | | | + + + + + | [facility] | [address] | [place] [address] | | | DIAGNOSTIC | [address] | | | | LABORATORIES | | | | + + + + + TACROLIMUS, WHOLE BLOOD (06/21/2019 9:33 AM PST) + +-------+ + + + | Component | Value | Ref Range | Performed | Pathologist | | | | | At | Signature | + +-------+ + + + | TACROLIMUS | 9.0 | 5.0 - 15.0 | [facility] | [...] | Test performed by immunoassay using [employer] i2000. . | [facility] | | Samples [...] | + + + + + | [facility] | [address] | [place] [address] | | | MENG, SPECIAL | JASON GUTIERREZ | | | [...] in water IV | New Bag | 06/21/20 | 2 g | | | | (RTU) 2 g 2 g, intravenous, | | 19 10:01 | | | | | ONCE, 1 dose, 06/21/19 at | | AM PST | | | | | 0945 | | | | | | + +---------+ +------+------+------+ +---+---+ | | | +---+---+ + +---------+ +-----+ +---+ | magnesium sulfate in water IV | New Bag | 06/21/20 | 2 g | 50 mL/hr | | | (RTU) 2 g 2 g, intravenous, | | 19 10:55 | | | | | ONCE, 1 dose, 06/21/19 at | | AM PST | | | | | 1100 | | | | | | + +---------+ +-----+ +---+ +---+---+ | | | +---+---+ + +---------+ + +---+---+ | sodium chloride (NS) 0.9 % | New Bag | 06/21/20 | 1,000 mL | | | | bolus 1,000 mL 1,000 mL, | | 19 10:00 | | | | | intravenous, NEEDED, Starting | | AM PST | | | | | 06/21/19 at 0958, Until Tue | | | | | | | 06/21/19 at 1819, decreased po | | | | | | | intake, dizziness | | | | | | + +---------+ + +---+---+ +---+---+ | | | +---+---+ documented in this encounter
--- OUTSIDE RECORDS SUMMARY | ~2020-03-12 | XMS | Encounter Summary ---
Demographics + + + | Address | [address] | | | [place] [address] | + + + | Home Phone | | + + + | Preferred Language | Unknown | + + + | Marital Status | Single | + + + | Religion Affiliation | NRP | + + + [...] Team Providers + +------+ + | Care Medical Instructor Name | Role | Phone | + +------+ + | Meredith Sanchez | PCP | | + +------+ + Encounter Details +--------+ + + + + | Date | Type | Department | Care Team | Description | +--------+ + + + + | 03/21/ | Documentati | [facility] | Work, Social | | | 2019 | on | Clinics at S | | | | | | [facility] [address] | | | | | | [address] [facility] | | | | | | Health and Healing, | | | | | | Building [address] | | | | | | [place], [place] | | | | | | [address] | | | | | | [phone] | | | +--------+ + + + [...] Telephone Encounter - Janee Bellamy MSW - 03/21/2019 5:22 PM PDTName:Nona Hopper Date: td : 1965 TRANSPLANT EDUCATION Spent time with sally, her niece Claudia and caregiver, Susan on the telephone for a tra nsplant education class. All 3 of them were involved and asked appropriate questions. They a ppeared to be committed to patient's care. Plan/Intervention: Social work will plan to be available for support and assistance as shruti hwang. KRIS FAULKNER, [facility] AT [address] [place] Mailcode: [place] [address] documented in this en counter Plan of Treatment Not on filedocumented as of this encounter Visit Diagnoses Not on filedocumented in this encounter"
--- OUTSIDE RECORDS SUMMARY | ~2020-03-12 | XMS | Encounter Summary ---
Demographics + + + | Address | [address] | | | [place] [address] | + + + | Home Phone | | + + + | Preferred Language | Unknown | + + + | Marital Status | Single | + + + | Orthodoxy Affiliation | NRP | + + + [...] Team Providers + +------+ + | Care High School Agriculture Teacher Name | Role | Phone | [...] 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 | Sejal Meadows, | [facility] [address] | | | | | (myelodyspla | DO [address] | | | | | stic | Jon Valverde | [facility] | | | | | syndrome) | [facility] | [facility] and | | | | | (HCC) | [place], [place] | Healing, | | | | | Procedures | [address] | [address] | | | | | [facility] | Phone: | [place], [place] | | | | | OFFICE/OUTPT | [phone] | [address] | | | | | | Fax: | Phone: | | | | | VISIT,EST,LE | [phone] | [phone] | | | | | VL IV [facility] | | Fax: | | | | | EST PATIENT | | [phone] | | | | | LEVEL V | | | +--------+--------+ + + + + Encounter Details +--------+ + + + + | Date | Type | Department | Care Team | Description | +--------+ + + + + | 07/21/ | Clinical | Laboratory at [facility] | | Lab Draw | | 2019 | Support | [address] | | | | | Staff | [facility] | | | | | | and Healing, | | | | | | [address] | | | | | | [place], [place] | | | | | | [address] | | | | | | [phone] | | | +--------+ + + + [...] documented as of this encounter Progress Notes Tamera Varghese RN - 07/21/2019 8:00 AM PSTGroshong accessed per protocol. Good blood return noted. Appropriate waste discarded. Labs drawn and sent. Dressing due for change today. Groshong pulse flushed with 20 mL NS. documented in this encounter Plan of Treatment Not on filedocumented as of this encounter Procedures + +--------+ + + + | Procedure Name | Priori | Date/Time | Associated Diagnosis | Comments | | | ty | | | | + +--------+ + + + | [facility] - MAGNESIUM, | Routin | 07/21/2019 | S/P cord blood | Results for this | | PLASMA | e | 7:59 AM | transplantation MDS | procedure are in the | | | | PST | (myelodysplastic | results section. | | | |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) | | + +--------+ + + + | [facility] - PHOSPHORUS, | Routin | 07/21/2019 | S/P cord blood | Results for this | | PLASMA | e | 7:59 AM | transplantation MDS | procedure are in the | | | | PST | (myelodysplastic | results section. | | | |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) | | + +--------+ + + + | [facility] - LDH TOTAL, | Routin | 07/21/2019 | S/P cord blood | Results for this | | PLASMA | e | 7:59 AM | transplantation MDS | procedure are in the | | | | PST | (myelodysplastic | results section. | | | |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) | | + +--------+ + + + | CBC AND AUTO DIFF | Routin | 07/21/2019 | S/P cord blood | Results for this | | | e | 7:59 AM | transplantation MDS | procedure are in the | | | | PST | (myelodysplastic | results section. | | | |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) | | + +--------+ + + + | VERITO-LORENZO VIRUS | Routin | 07/21/2019 | S/P cord blood | Results for this | | PCR, PLASMA | e | 7:59 AM | transplantation | procedure are in the | | | | PST | | results section. | + +--------+ + + + | [facility] - COMPLETE | Routin | 07/21/2019 | S/P cord blood | Results for this | | METABOLIC SET | e | 7:59 AM | transplantation MDS | procedure are in the | | | | PST | (myelodysplastic | results section. | | | | | syndrome) ([facility]) | | + +--------+ + + + | [facility] CBC W | Routin | 07/21/2019 | S/P cord blood | Results for this | | DIFFERENTIAL | e | 7:59 AM | transplantation MDS | procedure are in the | | | | PST | (myelodysplastic | results section. | | | | | syndrome) ([facility]) | | + +--------+ + + + | CMV PCR | Routin | 07/21/2019 | S/P cord blood | Results for this | | QUANTITATION, PLASMA | e | 7:59 AM | transplantation MDS | procedure are in the | | | | PST | (myelodysplastic | results section. | | | | | syndrome) ([facility]) | | + +--------+ + + + | TACROLIMUS, WHOLE | Routin | 07/21/2019 | S/P cord blood | Results for this | | BLOOD | e | 7:59 AM | transplantation MDS | procedure are in the | | | | PST | (myelodysplastic | results section. | | | | | syndrome) ([facility]) | | + +--------+ + + + | BLOOD BANK HOLD TUBE | Routin | 07/21/2019 | S/P cord blood | Results for this | | - DON | e | 7:59 AM | transplantation | procedure are in the | | | | PST | | results section. | | T PROCESS | | | | | + +--------+ + + + | HUMAN HERPES VIRUS 6 | Routin | 07/21/2019 | S/P cord blood | Results for this | | PCR (PLASMA OR CSF) | e | 7:59 AM | transplantation | procedure are in the | | | | PST | | results section. | + +--------+ + + + documented in this encounter Results CBC AND AUTO DIFF (07/21/2019 7:59 AM PST) + + + + + + | Component | Value | Ref Range | Performed | Pathologist | | | | | At | Signature | + + + + + + | WHITE CELL | 8.96 | 3.50 - 10.80 | [facility] | | | COUNT | | K/cu mm | LABORATORY | | | | | | SERVICES, | | | | | | [facility] + | | | | | | HEALING | | + + + + + + | RED CELL | 3.26 (L) | 4.00 - 5.20 | [facility] [...] + + + + | HEMATOCRIT | 31.9 (L) | 36.0 - 46.0 % | [facility] | | | | | | LABORATORY | | | | | | SERVICES, | | | | | | [facility] | | [facility] + | | | | | | HEALING | | + + + + + + | MCV | 97.9 | 80.0 - 100.0 fL | [facility] | | | | | | LABORATORY | | | | | | SERVICES, | | | | | | [facility] | | [facility] + | | | | | | HEALING | | + + + + + + | MCHC | 31.0 (L) | 32.0 - 36.0 | [facility] | | | | | g/dL | LABORATORY | | | | | | SERVICES, | | | | | | [facility] | [facility] + | | | | | | HEALING | | + + + + + + | RDW SD | 72.5 (H) | 35.1 - 46.3 fL | [facility] | | | | | | LABORATORY | | | | | | SERVICES, | | | | | | [facility] | | [facility] + | | | | | | HEALING | | + + + + + + | PLATELET | 155Comment: | 150 - 400 K/cu | [facility] [...] + + + + | NEUTROPHIL | 63.0 | 50.0 - 70.0 % | [facility] | | | % | | | LABORATORY | | | | | | SERVICES, | | | | | | [facility] | | | | | | [facility] + | | | | | | HEALING | | + + + + + + | LYMPHOCYTE | 20.1 | 18.0 - 42.0 % | [facility] | | | % | | | LABORATORY | | | | | | SERVICES, | | | | | | [facility] | | | | | | [facility] + | | | | | | HEALING | | + + + + + + | MONOCYTE % | 11.6 (H) | 3.5 - 9.0 % | [...] + + + + | IG% | 4.7 (H) | 0.0 - 1.0 % | [facility] | | | | | | LABORATORY | | | | | | SERVICES, | | | | | | [facility] | [facility] | | | | [facility] + | | | | | | HEALING | | + + + + + + | NEUTROPHIL | 5.64 | 1.80 - 7.70 | [facility] | | | # | | K/cu mm | LABORATORY | | | | | | SERVICES, | | | | | | [facility] | | | | | | [facility] + | | | | | | HEALING | | + + + + + + | NEUTROPHIL | 5.64Comment: Preliminary | 1.80 - 7.70 | [facility] [...] + + + + | LYMPHOCYTE | 1.80 | 1.00 - 4.80 | [facility] | | | # | | K/cu mm | LABORATORY | | | | | | SERVICES, | | | | | | [facility] | | | | | | [facility] + | | | | | | HEALING | | + + + + + + | MONOCYTE # | 1.04 (H) | 0.10 - 0.90 | [facility] | | | | | K/cu mm | LABORATORY | | | | | | SERVICES, | | | | | | [facility] | | | | | | [facility] + | | | | | | HEALING | | + + + + + + | EOS # | 0.04 | 0.00 - 0.50 | [facility] | [...] [facility] | [address] | [place] [address] | | | SERVICES, [facility] | | | | | HEALTH + HEALING | | | | + + + + + BLOOD BANK HOLD TUBE - DON T PROCESS (07/21/2019 7:59 AM PST) + + + + + + | Component | Value | Ref Range | Performed | Pathologist | | | | | At | Signature | + + + + + + | SPECIMEN | Sample received with | | [facility] | | | COLLECTED, | adeq label/volume to | | LABORATORY | | | HELD | process | | SERVICES, | | | | [...] [facility] | [address] | [place] [address] | | | SERVICES, | [address] | | | | TRANSFUSION MEDICINE | | | | + + + + + [facility] - COMPLETE METABOLIC SET (07/21/2019 7:59 AM PST) + +---------+ + + + | Component | Value | Ref Range | Performed | Pathologist | | | | | At | Signature | + +---------+ + + + | GLUCOSE, | 123 (H) | 70 - 99 mg/dL | [facility] | | | PLASMA | | | LABORATORY | | | (LAB) | | | SERVICES, | | | | | | [facility] | | | | | | [facility] + | | | | | | HEALING | | + +---------+ + + + | BUN, PLASMA | 18 | 6 - 20 mg/dL | [facility] [...] | | | LABORATORY | | | THAI | | | SERVICES, | | | [...] +---------+ + + + | SODIUM, | 139 | 136 - 145 | [facility] | | | PLASMA | | mmol/L | LABORATORY | | | (LAB) | | | SERVICES, | | | | | | [facility] | | | | | | HE[facility] + | | | | | | HEALING | | + +---------+ + + + | POTASSIUM, | 3.9 | 3.4 - 5.0 | [facility] | | | PLASMA | | mmol/L | LABORATORY | | | (LAB) | | | SERVICES, | | | | | | [facility] | | | | | | [facility] + | | | | | | HEALING | | + +---------+ + + + | CHLORIDE, | 105 [...] + + + | TOTAL CO2, | 26 | 21 - 32 mmol/L | [facility] | | | PLASMA | | | LABORATORY | | | (LAB) | | | SERVICES, | | | | | | [facility] | | | | | | HE[facility] + | | | | | | HEALING | | + +---------+ + + + | CALCIUM, | 8.3 (L) | 8.6 - 10.2 | [facility] | | | PLASMA | | mg/dL | LABORATORY | | | (LAB) | | | SERVICES, | | | | | | [facility] | | | | | | [facility] + | | | | | | HEALING | | + +---------+ + + + | CALCIUM(ALB | 9.0 | 8.6 - 10.2 | [facility] | | | CORRECTED) | | mg/dL | LABORATORY | | | | | | SERVICES, | | | | | | [facility] | | | | | | [facility] + | | | | | | HEALING | | + +---------+ + + + | BILIRUBIN | 0.3 | 0.3 - 1.2 mg/dL | [facility] [...] + + + | ALK PHOS | 84 | 42 - 98 U/L | [facility] [...] + + + | ALT (SGPT) | 18 | <=60 U/L | [facility] | | | | | | LABORATORY | | | | | | SERVICES, | | | | | | [facility] | | | | | | HE[facility] + | | | | | | HEALING | | + +---------+ + + + | ANION GAP | 8 | 4 - 11 mmol/L | [facility] | | | | | | LABORATORY | | | | | | SERVICES, | | | | | | [facility] | | | | | | [facility] + | | | | | | HEALING | | + +---------+ + + + | ANION | 10 [...] +---------+ + + + | BUN/CREATIN | 23 | 8 - 25 | [facility] | [...] SERVICES, | | | | | | [facility] | | | | [...] + + + + + | [facility] | [address] | [place] [address] | | | SERVICES, [facility] | | | | | HEALTH + HEALING | | | | + + + + + H - LDH TOTAL, PLASMA (07/21/2019 7:59 AM PST) + +---------+ + + + | Component | Value | Ref Range | Performed | Pathologist | | | | | At | Signature | + +---------+ + + + | LD TOTAL, | 223 | <=250 U/L | [facility] | | [...] | [facility] | [address] | [place] [address] | | | [facility] | | | | | HEALTH + HEALING | | | | + + + + + [facility] - MAGNESIUM, PLASMA (07/21/2019 7:59 AM PST) + +---------+ + + + [...] + + + + + | [facility] | [address] | [place] [address] | | | SERVICES, [facility] | | | | | HEALTH + HEALING | | | | + + + + + [facility] - PHOSPHORUS, PLASMA (07/21/2019 7:59 AM PST) + +-------+ + + + [...] + + + + + | [facility] | [address] | [place] [address] | | | [facility] | | | | | HEALTH + HEALING | | | | + + + + + CMV PCR QUANTITATION, PLASMA (07/21/2019 7:59 AM PST) + + + + + [...] 2 fold may not reflect true | [facility] | | biological changes and must [...] | | | characteristics determined by the [facility] | | | Molecular Diagnostic Center. It has not been cleared or approved by | | | the Food and Drug Administration. FDA approval is not required for | | | clinical use of this test, and therefore validation was done as | | | required under the requirements of the Clinical Laboratory Improvement | | | Act of 1988. The [facility] | | | Diagnostic Center is a fully licensed and/or accredited clinical | | | laboratory under CLIA, CAP, and the [facility]. | | + + + + + + + + | Performing | Address | City/State/Zipcode | Phone Number | | Organization | | | | + + + + + | [facility] | [address] | [place] [address] | | | DIAGNOSTIC | [address] | | | | LABORATORIES | | | | + + + + + TACROLIMUS, WHOLE BLOOD (07/21/2019 7:59 AM PST) + +-------+ + + + | Component | Value | Ref Range | Performed | Pathologist | | | | | At | Signature | + +-------+ + + + | TACROLIMUS | 11.4 | 5.0 - 15.0 | [facility] | [...] | Test performed by immunoassay using [employer]ator i2000. . | [facility] | | Samples [...] | + + + + + | [facility] | [address] | [place] [address] | | | SERVICES, SPECIAL | JASON GUTIERREZ | | | | IMM + COAG | | | | + + + + + VERITO-LORENZO VIRUS PCR, PLASMA (07/21/2019 7:59 AM PST) + + + + + [...] we have completed a quantitative polymerase | [facility] | | chain reaction (PCR) based [...] | performance characteristics determined by the [facility] | | | Diagnostics Center. It has not been cleared or approved by the Food | | | and Drug Administration. FDA approval is not required for clinical | | | use of this test, and therefore validation was done as required under | | | the requirements of the Clinical Laboratory Improvement Act of 1988. | | | The [facility] is a fully licensed and/or accredited clinical laboratory | | | under CLIA, CAP, and the [facility]. References: 1) | | | Phong et al. Laboratory assays for EBV-related disease. J [facility] | | | Diagn 10: 279-292, 2007. 2) Khalida et al. EBV viral load and | | | disease prediction in a large cohort of allogeneic stem cell | | | transplant recipients. Clin Infect Dis 45: 1305-9, 2006. 3) | | | Manjula SD, Holly T, Bailee P, Isaura SK, Miguel A. Herpesvirus | | | prevalence and viral load in healthy blood donors by quantitative | | | real-time polymerase chain reaction. Transfusion 2008;48:5127-1771. | | | 4) Bassam BEARDEN, Genny CASAS, Félix I, van keshia Viktorj W, et al. | | | Frequent monitoring of Verito-Lorenzo virus DNA load in unfractionated | | | whole blood is essential for early detection of posttransplant | | | lymphoproliferative disease in high-risk patients. Blood | | | 2001;97(5):7745-6765. | | + + + + + + + + | Performing | Address | City/State[facility] | Phone Number | | Organization | | | | + + + + + | [facility] | [address] | [place] [address] | | | DIAGNOSTIC | [address] | | | | LABORATORIES | | | | + + + + + HUMAN HERPES VIRUS 6 PCR (PLASMA OR CSF) (07/21/2019 7:59 AM PST) + + + + + [...] - [facility] | | | | [place] [address] | | | | | | [phone] | | | | | Zeferino [...] A: | | | | | | [employer]/CS | | | | + + + [...] [facility] | [address] | [place], [place] | | | [facility] | | [address] | | + + + + + documented in this encounter Visit Diagnoses + + | Diagnosis | + + | S/P cord blood transplantation - Primary Other specified organ or tissue replaced by | | transplant | + + | MDS (myelodysplastic syndrome) (HCC) Myelodysplastic syndrome, unspecified | + + documented in this encounter"
--- OUTSIDE RECORDS SUMMARY | ~2020-03-12 | XMS | Encounter Summary ---
Demographics + + + | Address | [address] | | | [place] [address] | + + + | Home Phone [...] Team Providers + +------+ + | Care Roofing Contractor Name | Role | Phone | + +------+ + | Meredith Sanchez | PCP | | + +------+ + Encounter Details +--------+ + + + + | Date | Type | Department | Care Team | Description | +--------+ + + + + | 12/21/ | Disulfurizer Tender | [facility] | Sejal [place] [facility]re | | | 2019 | | Clinics at S | N, DO [address] | | | | | [facility] [address] | | | | | [place] [place] for | [place], [place] | | | | | Health and Healing, | [address] | | | | | [address] | [phone] | | | | | [place], [place] | | | | | | [address] | | | | | | [phone] | | | +--------+ + + + [...]
--- OUTSIDE RECORDS SUMMARY | ~2020-03-12 | XMS | Encounter Summary ---
Demographics + + + | Address | [address] | | | [place] [address] | + + + | Home Phone [...] Providers + +------+ + | Care Laboratory Machinist Name | Role | Phone | + +------+ + | Meredith Sanchez | PCP | | + +------+ + Reason for Visit + +--------+ + | Reason | Onset | Comments | | | Date | | + +--------+ + | RT Treatment Summary | 05/23/ | | | | 2018 | | + +--------+ + Encounter Details +--------+ + + + + | Date | Type | Department | Care Team | Description | +--------+ + + + + | 05/23/ | Documentati | Radiation Oncology | Tayo Charles, | RT Treatment Summary | | 2019 | on | at [facility] [address] | MD [address] [facility] | | | | | [address] | [facility] | | | | | [place], [facility] floor | [place], [place] | | | | | [place], [place] | [address] | | | | | [address] | [phone] | | | | | [phone] | | | +--------+ + + + [...] encounter Miscellaneous Notes Telephone Encounter - Tayo Charles MD - 05/23/2019 1:40 PM PSTRADIATION ONCOLOGY [place]USH[place] ATMENT SUMMARY IDENTIFICATION: Nona Hopper is a 53 y.o. 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 We treated with full TBI to 12 Gy in 8 fractions per protocol; completed 04/28/19. v TREATMENT TOLERANCE AND RESPONSE: The patient tolerated treatment well without unexpected or significant acute side effects. G1 fatigue. FOLLOW UP: She will be scheduled for a follow up with BMT team For further details about the treatment plan please contact our office at [phone]. Tayo Charles MD Dept of Radiation Medicine [facility] [place] documented in this encounter Plan of Treatment Not on filedocumented as of this encounter Visit Diagnoses Not on filedocumented in this encounter"
--- OUTSIDE RECORDS SUMMARY | ~2020-03-12 | XMS | Encounter Summary ---
Demographics + + + | Address | [address] | | | [place] [address] | + + + | Home Phone [...] Team Providers + +------+ + | Care Motor Vehicle Assembly Supervisor Name | Role | Phone | [...] | | | | | syndrome) | [facility] | Health and | | | | | (HCC) | [place], [place] | Healing, | | | | | Procedures | [address] | [address] | | | | | [place] | Phone: | [place], [place] | | | | | OFFICE/OUTPT | [phone] | [address] | | | | | | Fax: | Phone: | | | | | VISIT,EST,LE | [phone] | [phone] | | | | | [place] | | Fax: | | | | | EST PATIENT | | [phone] | | | | | LEVEL V | | | +--------+--------+ + + + + Encounter Details +--------+ + + + + | Date | Type | Department | Care Team | Description | +--------+ + + + + | 05/29/ | Hospital | [facility] | | | | 2019 | Encounter | Clinics at S | | | | | | [facility] [address] | | | | | | [facility] | | | | | | Health and Healing, | | | | | | [address] | | | | | | [place], [place] | | | | | | [address] | | | | | | [phone] | | | +--------+ + + + [...] + + + | Blood Pressure | 122/56 | 05/29/2019 10:44 AM | | | | | PST | | + + + + + | Pulse | 83 | 05/29/2019 10:44 AM | | | | | PST | | + + + + + | Temperature | 36.7 C (98.1 F) | 05/29/2019 10:44 AM | | | | | PST | | + + + + + | Respiratory Rate | - | - | | + + + + + | Oxygen Saturation | 100% | 05/29/2019 10:44 AM | | | | | PST | | + + + + + | Inhaled Oxygen | - | - | | | Concentration | | | | + + + + + | Weight | 61.6 kg (135 lb 12.8 | 05/29/2019 10:44 AM | | | | oz) | [...] this encounter Progress Tisha Nelson RN - 05/29/2019 10:40 AM PST INFUSION NURSING NOTE Allergies: Nona is allergic to cefepime and sulfa (sulfonamide antibiotics). Narrative: Nona is a 53 yo female with a history of MDS, currently day +37 of transplant. Nursing Assessment: Fever/Chills/Infection: No SOB / Cough: No Dizziness/Lightheaded/Fatigue: Yes, fatigue. Signs/Symptoms Bleeding: No Neuropathy: No Mucositis: No Nausea/Vomiting: Yes, nausea controlled with zofran and compazine. Appetite: Inadequate. Diarrhea/Constipation: Yes - How often? One episode of soft/loose stools per day. PO Fluid Intake: Less than 1L, 1L IV NS given. Rash/Skin sores/Edema: No Urinary Issues: No Pain: No Vascular Access: Groshong accessed per protocol. Good blood return noted. Appropriate waste discarded. Meghna bs drawn and sent. Groshong pulse flushed with 20 mL NS. Per Orders: Infusion Plan: -IL NS given IV over 1 hr. -4g Magnesium given IV over 1 hr for a magnesium level of 1.5. Supportive Plan: No orders. Chemo Plan: No [...] + + | [facility] - MAGNESIUM, | Urgent | 05/29/2019 | MDS | Results for this | | PLASMA | | 10:45 AM | (myelodysplastic | procedure are in the | | | | PST | syndrome) ([facility]) Hx | results section. | | | | | of allogeneic stem | | | | | | cell transplant | | | | | | ([facility]) | | + +--------+ + + + | [facility] - COMPLETE | Urgent | 05/29/2019 | MDS | Results for this | | METABOLIC SET | | 10:45 AM | (myelodysplastic | procedure are in the | | | | PST | syndrome) ([facility]) Hx | results section. | | | | | of allogeneic stem | | | | | | cell transplant | | | | | | (HCC) | | + +--------+ + + + | TACROLIMUS, WHOLE | Urgent | 05/29/2019 | MDS | Results for this | | BLOOD | | 10:45 AM | (myelodysplastic | procedure are in the | | | | PST | syndrome) ([facility]) Hx | results section. | | | | | of allogeneic stem | | | | | | cell transplant | | | | | | ([facility]) | | + +--------+ + + + documented in this encounter Results [facility] - COMPLETE METABOLIC SET (05/29/2019 10:45 AM [...] | | | LABORATORY | | | [facility] | | | SERVICES, | | | [...] MDRD equation recommended by the National | IASU | | Kidney Disease Education Program. Estimated [...] | + + + + + | [facility] | [address] | [place] [address] | | | SERVICES, [facility] FOR | | | | | HEALTH + HEALING | | | | + + + + + [facility] - MAGNESIUM, PLASMA (05/29/2019 10:45 AM PST) [...] [facility] | [address] | [place] [address] | | | SERVICES, CENTER FOR | | | | | HEALTH + HEALING | | | | + + + + + TACROLIMUS, WHOLE BLOOD (05/29/2019 10:45 AM PST) + [...] | Test performed by immunoassay using [employer] i2000. . | [facility] | | Samples [...] | + + + + + | [facility] | [address] | [place] [address] | | | SERVICES, SPECIAL | JASON [...] in water IV | New Bag | 05/29/20 | 2 g | | | | (RTU) 2 g 2 g, intravenous, | | 19 11:02 | | | | | ONCE, 1 dose, Martha 05/29/19 at 1100 | | AM PST | | | | + +---------+ +------+------+------+ +---+---+ | | | +---+---+ + +---------+ +-----+---+---+ | magnesium sulfate in water IV | New Bag | 05/29/20 | 2 g | | | | (RTU) 2 g 2 g, intravenous, | | 19 11:56 | | | | | ONCE, 1 dose, 05/29/19 at 1130 | | AM PST | | | | + +---------+ +-----+---+---+ +---+---+ | | | +---+---+ + +---------+ + +---+---+ | sodium chloride 0.9 % (NS) IV | New Bag | 05/29/20 | 1,000 mL | | | | infusion 1,000 mL, intravenous, | | 19 10:59 | | | | | ONCE, 1 dose, [place] 05/29/19 at 1045 | | AM PST | | | | + +---------+ + +---+---+ +---+---+ | | | +---+---+ documented in this encounter"
--- OUTSIDE RECORDS SUMMARY | ~2020-03-12 | XMS | Encounter Summary ---
Demographics + + + | Address | [address] | | | [place] [address] | + + + | Home Phone [...] Team Providers + +------+ + | Care Pigment Supplier Name | Role | Phone | + +------+ + | Meredith Sanchez | PCP | | + +------+ + Encounter Details +--------+--------+ + + + | Date | Type | Department | Care Team | Description | +--------+--------+ + + + | 07/07/ | Travel | | | | | [...]
--- OUTSIDE RECORDS SUMMARY | ~2020-03-12 | XMS | Encounter Summary ---
Demographics + + + | Address | [address] | | | [place] [address] | + + + | Home Phone [...] Team Providers + +------+ + | Care Safety Deposit Clerk Name | Role | Phone | + +------+ + | Meredith Sanchez | PCP | | + +------+ + Encounter Details +--------+ + + + + | Date | Type | Department | Care Team | Description | +--------+ + + + + | 04/23/ | Document-Sc | [facility] [address] | Sejal De La Torre | | | 2019 | waqas | [address] | [address] | | | | | [place], [place] | [address] | | | | | [address] | [place], [place] | | | | | | [address] | | | | | | [phone] | | | | | | | [...]
--- OUTSIDE RECORDS SUMMARY | ~2020-03-12 | XMS | Encounter Summary ---
Demographics + + + | Address | [address] | | | [place] [address] | + + + | Home Phone [...] Team Providers + +------+ + | Care Composite Bond Worker Name | Role | Phone | + +------+ + | Meredith Sanchez | PCP | | + +------+ + Encounter Details +--------+ + + + + | Date | Type | Department | Care Team | Description | +--------+ + + + + | 11/02/ | Hospital | [facility] | Rn, Fast Track | | | 2020 | Encounter | Clinics at S | [address] | | | | | [facility] [address] | [place] [address] | | | | | [facility] | | | | | | Health and Healing, | | | | | | [address] | | | | | | [place], [place] | | | | | | [address] | | | | | | [phone] | | | +--------+ + + + [...] + + + +---------+ + + | guaiFENesin LA 600 | Take 1 tablet by | 30 | 1 | 09/29/19 | | | mg oral tablet | mouth two times | tablet | | 20 | | | extended release | daily. | | | | | | 12hr | | | | | | + + [...] + documented as of this encounter Progress Janee France RN - 11/03/2019 8:00 AM PDTPre-procedure pain level:0 Team Pause: Prior to the beginning of the procedure, the team paused to verify the patient s identity, the procedure to be performed (in accordance with the consent,) and the [facility] t side/site. The patient was positioned appropriately. All relevant images and results were properly labeled and displayed. We addressed antibiotic prophylaxis and fluids for irrigatio n as applicable to this patient. Any safety precautions were addressed. Patient premedicated with ativan1 mg iv per .Sam Baron WORLD DESIGNER orders. Bone marrow biopsy co mpleted. KAMILLA elliott'wander. Patient observed for 15 minutes post-procedure. Janee Liu RN documented in this encou nter Plan of Treatment Not on filedocumented as of this encounter Visit Diagnoses + + | Diagnosis | + + | Malignant neoplasm of ascending colon (HCC) - Primary Malignant neoplasm of ascending | | colon | + + documented in this encounter"
--- OUTSIDE RECORDS SUMMARY | ~2020-03-12 | XMS | Encounter Summary ---
Demographics + + + | Address | [address] | | | [place] [address] | + + + | Home Phone | | + + + | Preferred Language | Unknown | + + + | Marital Status | Single | + + + | Sabianist Affiliation | NRP | + + + | Race | White | + + + | Ethnic Group | Not or | + + + Author + + + | Author | [facility] | + + + | Organization | [facility] | + + + | Address | Unknown | + + + | Phone | Unavailable | + + + Support + + +---------+ + | Name | Relationship | Address | Phone | + + +---------+ + | Claudia Cota | ECON | Unknown | | + + +---------+ + Care Team Providers + +------+ + | Care Tray Room Worker Name | Role | Phone | [...] | | | | | (HCC) | [place], [place] | [facility] [place] | | | | | Procedures | [address] | [address] | | | | | [place] EST | Phone: | Phone: | | | | | PATIENT | [phone] | [phone] | | | | | LEVEL V | Fax: | Fax: | | | | | | [phone] | [phone] | + +--------+ + + + + Encounter Details +--------+ + + + + | Date | Type | Department | Care Team | Description | +--------+ + + + + | 10/19/ | Telephone-S | [facility] | Cathy Cornelius | | | 2020 | cheduled | Clinics at S | M, ACUPUNCTURE PHYSICIAN [address] | | | | | [facility] [address] | [address] | | | | | [place] for | [facility] [place] | | | | | Health and Healing, | [address] | | | | | [address] | [phone] | | | | | [facility] [place] | | | | | | [address] | | | | | | [phone] | | | +--------+ + + + [...] this encounter Patient Instructions Patient Instructions Cathy Cornelisu NP - 10/20/2019 11:30 AM PDT1. Call the BMT clini c ([phone]) or BMT person on-call ([phone]) for: Any temp > 100.4 Nausea/vomiting unresponsive to anti-nausea medications Significant diarrhea despite Imodium Inability to drink at least 2 liters of fluid daily You develop a rash Bleeding 2. Continue current dose of tacrolimus, with a goal of 5-10. Your recent tacrolimus level w as 6.5 on 10/12 3. Continue current dose of prednisone at 20mg once daily. We will continue this dose until your next visit in two weeks 4. Continue to monitor your joint pains (knees) as this is likely related to steroids and s hould improve as we taper that again soon 5. Follow allergy symptoms and take Claritin 10mg daily as needed for symptoms. Can also tr y flonase over the counter if runny nose and eyes persist 6. Follow up again in two weeks with in-person visit, labs and bone marrow biopsy Electroni nithya signed by Cathy Cornelius NP at 10/20/2019 1:44 PM PDT documented in this encounter Progress Notes Cathy Cornelius NP - 10/20/2019 11:30 AM PDT 10/20/19- Day +180 post transplant Patient agrees to a telephone encounter for today's visit. They understand they may be resp onsible for the balance after insurance processes the claim. Time spent on the call: 25 min. The patients encounter was accomplished via a telephone call today due to COVID-19 precauti onary measures to limit the patient's unnecessary exposure. [facility] Physician: Sejal De La Torre DO Local oncologist: Dr. Sequeira Hematologic Malignancy: MDS Conditioning regimen: FluCyTBI Date of transplant: 04/22/2019 Donor: CBU 1: [id number]/02 match, CBU 2: [id number]/02 match Research study: Ruperto "[id number]: A Multicenter, Randomized, Phase III Registration Tr [...] lung nodules with concern for fungal infection. W orkup was negative and repeat CT chest imaging on 07/21/19 showed improvement. 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 --December 2018- developed fevers up to 104. Work up neg for infection, but noted to have CBC s howing dropping counts. --Jun. Moved to [place] ([facility]) -- 10/07/18 showed normal chemistries, Bilirubin 1.4, [...] for D4-D7. 01/14-01/26/2019 admitted for zoster to [facility]. Vidaza held. 02/17/2019- seen at [facility] by Dr. De La Torre, no healthy siblings so cord blood is only option -consented to [facility] "[id number]: A Multicenter, Randomized, Phase III Registration Tri me of Transplantation of NiCord, Ex Vivo Expanded, UCB-derived, Stem and Progenitor Cells, vs. Unmanipulated UCB for Patients With Hematological Malignancies". She was randomized to SOC arm. --02/21-03/01 C3 aza.Tolerated well without complications. --04/15-05/18/2019 admitted to [facility] for planned flu/cy/tbi conditioned UCB [...] fungal process. Pt underwent a BAL 07/11, all results were negative. She restarted prednisone on 08/12 for progressive rash >50% BSA 1 mg/kg/d. She has been tolerating gradual taper. Interval History: Nona is present on a phone visit today. She had her last phone visit t wo weeks ago with Dr. De La Torre. Since that time her facial rash has completely resolved. She a lso had cold symptoms with runny nose and cough that has also improved. She never had fevers during that period of illness but she did have upper respiratory symptoms that have also im proved. She was taking the stairs during that time as her elevator was broken. She did note improvement in muscle strength during that time and afterwards. She has noted marked improve ment in her right foot drop. She does note occasional right knee pains that come and ago. Felicita gaines has noticed this twice in the last month and is wondering if it could be related to the pr ednisone. She also notes watering of her eyes that occurs most of the time, she is also spen ding more time outdoors and believes this is related to allergies. Review of Systems Constitutional: Negative for chills, fever, malaise/fatigue and weight loss. HENT: Negative for congestion, hearing loss, sinus pain, sore throat and tinnitus. Eyes: Positive for discharge (watery eyes). Respiratory: Negative for cough and shortness of breath. Cardiovascular: Negative for chest pain, palpitations and orthopnea. Genitourinary: Positive for frequency (frequent urination on and off, stable). Negative for dysuria and urgency. Musculoskeletal: Negative for falls and myalgias. Skin: Negative for itching and rash. Neurological: Positive for weakness (improved). Negative for dizziness and headaches. Endo/Heme/Allergies: Positive for environmental allergies. Does not bruise/bleed easily. Psychiatric/Behavioral: Negative for depression. The patient is not nervous/anxious. Current Medication List Name Sig DAPSONE 100 MG TABLET Take 1 tablet by mouth once daily. Indications: pneumonia prevention ESCITALOPRAM 20 MG TABLET Take 1 tablet by mouth once daily. Indications: major depressive disorder GUAIFENESIN ER 600 MG TABLET, EXTENDED RELEASE 12 HR Take 1 tablet by mouth two times daily . MAGNESIUM OXIDE-MAGNESIUM AMINO ACID CHELATE 133 MG TABLET Take 2 tablets by mouth four lazara es daily. OMEPRAZOLE 40 MG CAPSULE,DELAYED RELEASE Take 1 capsule by mouth once daily. Administer 30 to 60 minutes before meals POSACONAZOLE 100 MG TABLET,DELAYED RELEASE Take 4 tablets by mouth once daily. Indications: prevention of fungal infection POTASSIUM CHLORIDE ER 10 MEQ TABLET,EXTENDED RELEASE(PART/CRYST) Take 3 tablets by mouth on ce daily. Indications: low amount of potassium in the blood POTASSIUM CHLORIDE ER 10 MEQ TABLET,EXTENDED RELEASE(PART/CRYST) Take 3 tablets by mouth on ce daily. Indications: low amount of potassium in the blood PREDNISONE 10 MG TABLET Take 3 tablets by mouth once daily. As of 09/29/19: 30mg once daily, On 09/11 decrease to 20 mg daily ROPINIROLE 0.5 MG TABLET Take 1 tablet by mouth once daily in the evening. TACROLIMUS 0.5 MG CAPSULE Effective 08/26/19: Take 0.5 mg by mouth TWICE daily on Mon/Thu/ Fri, and take 0.5 mg by mouth ONCE daily all other days. Combine 0.5mg and 1mg capsules to m lola your current dose. HOLD on days of clinic and bring with you to take AFTER your labs are drawn. Indications: prevention of GVHD TACROLIMUS 1 MG CAPSULE Effective 08/04/19: HOLD [...] daily as needed . Indications: skin rash TRIAMCINOLONE ACETONIDE 0.5 % TOPICAL OINTMENT Apply to affected area two times daily. Appl y thin film to affected areas. Ok to use on face twice daily VALACYCLOVIR 500 MG TABLET Take 1 tablet by mouth two times daily. Vitals: There were no vitals taken for this visit. No Physical Exam given phone conversation Laboratory Results: Labs to be performed outside due to COVID, completed on 10/12 Assessment/Plan: 1. Hematology: History of MDS s/p FluCyTBI double cord (Day 0=04/22/19) She is enrolled in [facility] "[id number]: A Multicenter, Randomized, Phase III Registration Trial [...] no prior mutations were de tected on Find That File. Her engraftment studies show 100% donor #2 (female) D+90. PB chimerism 07/21-100% cord 2 -BMBx 07/28/19 shows 20-30% cellularity with no increase in blasts. Normal karyotype. No pr ior mutations noted -Plan for BMBx on 11/03/19 with chimerisms and immune reconstitution panel per [facility]to protoc ol 2. GVHD: Probable skin and upper/lower GI [...] see below. Last dose of prednisone on 08/05/19 and then on 08/11 developed new skin ra sh >50% BSA and was restarted on prednisone on 08/12/19 and was tolerated steroid taper well until skin flare on 09/29/19 and prednisone was increased to 30mg daily. -Prednisone: decreased to 20 mg daily on 10/12 and plan to continue this dose through next visit (11/02) given frequent recurrent symptoms with prednisone taper -Tacrolimus, continue with goal 5-10, last level was 6.5 and no change in dosing Ruperto Simpson phase 3 (IRB 42081) Acute GVHD Staging Complete on study visit days 7,14, 21, +28, 35, 42, 56, 70, 100, 180 aGVHD Staging Criteria: Rule of 9:arm 9%; head 18%; palm 1%; leg 18%; anterior chest 18%; posterior chest 18%; carlton meka 1%. Stage Skin/Rash Liver (Tbili mg/dL) Upper GI Lower GI 1<< <25% BSA 2-3 mg/dL Persistent anorexia, nausea, or vomiting 500-1000 mL diarrhea/day 2 25-50% BSA 3.1-6 mg/dL 2807-9665 mL diarrhea/day 3 >50% BSA Generalized erythroderma [...] toxicity:n TPN:n Infection:y Other (describe):n Complete Values: BSA%:0 Bullae (Y/N):n TBili: 0.5 24H Diarrhea Vol: 2 BMs Severe abd pain (Y/N): n Ileus (Y/N):n Assign Stage: 0 0 Biopsy not c/w GVHD, +colitis Biopsy not c/w GVHD Presumptive/ Confirmed Dx of aGVHD? (Y/N) Y n n n Ruperto Simpson phase 3 [facility] Consensus - Chronic GVHD Scoring: Day 100, 180, 270, 365 IRB 22521 Score 1(skin) Performance Scoring Not Present 0 Mild 1 Moderate 2 Severe 3 System Score (0-3) Skin: 0 Mouth: 0 Eyes: 0 GI Tract: 0 Liver: 0 Lungs: 0 Joints and Fascia: 0 Genital Tract: 0 Other indicator, manifestation, or complication: Indicator Y/N Esophageal stricture or web: N Ascites (serositis): n Myasthenia Gravis: n Polymyositis: n Platelets >100,000/ul: y Pericardial Effusion: n Nephrotic syndrome: n Cardiomyopathy: n Cardiac conduction defects: n Progressive Onset: n Pleural Effusion: n Peripheral Neuropathy: n Eosinophilia >500 ul: n Coronary artery involvement: n KPS:90 Pulmonary: Pretransplant PFTs completed on03/10/19 showed FEV1 of76% predicted, FVC of 87% predicted and adjusted DLCO of77% predicted. PFTs 07/28/19 FEV1 76%, DLCO 74. Unchange d from prior. 3. ID: Recent admission for colitis and s/p Cirpo/Flagyl x7 days through 07/19/19. Continue prophylactic antimicrobials with Valtrex (recent hx HSV, will continue through Day +365), po saconazole and dapsone (allergy to Sulfa). Of note, patient is toxo negative. -Per cord protocol: Check EBV and HHV6 monthly and PRN. No hx of viremia -Continue posaconazole while on HD steroids >20mg/day Possible pneumonia, seen during routine CXR on recent admission and now s/p BAL per ID/pulm recs. Workup negative to date -Repeat Chest CT 07/21/19 reviewed and shows improved consolidation -Broad range PCR from BAL on 07/11 negative Vaccinations: Influenza vaccine administered 07/28/19 and Prevnar#1 administered on 07/28/19. 4. FEN: Labs reviewed and electrolytes WNL. Continue oral mag and potassium replacements. 5. GI: Risk of gastritis: Continue omeprazole 40 mg daily Risk for VOD:no e/o this currently. Completed Ursodiol 500 mgPO BID through Day +90 ( 07/20/19) 6. Pysch: #Insomnia related to RLS: continue Requip 0.5 mg qHS #Depression:Stable, continue home SSRI. -Lexapro 20 mg PO daily 7. MSK: Deconditioning post transplant with right foot drop and leg weakness, R>L. This is improving overtime. -Continue strength training exercises and walking at home Follow-up: Plan to follow up in 2 weeks with office visit and bone marrow biopsy No changes in medications today (current current prednisone and tacrolimus doses) Patient Instructions 1. Call the BMT clinic ([phone]) or BMT person on-call ([phone]) for: Any temp > 100.4 Nausea/vomiting unresponsive to anti-nausea medications Significant diarrhea despite Imodium Inability to drink at least 2 liters of fluid daily You develop a rash Bleeding 2. Continue current dose of tacrolimus, with a goal of 5-10. Your recent tacrolimus level w as 6.5 on 10/12 3. Continue current dose of prednisone at 20mg once daily. We will continue this dose until your next visit in two weeks 4. Continue to monitor your joint pains (knees) as this is likely related to steroids and s hould improve as we taper that again soon 5. Follow allergy symptoms and take Claritin 10mg daily as needed for symptoms. Can also tr y flonase over the counter if runny nose and eyes persist 6. Follow up again in two weeks with in-person visit, labs and bone marrow biopsy Cathy Cornelius NP [facility] [address] [address] Kenia Guadalupe MA - 10/20/2019 11:30 AM PDTPt name and confirmed yes Speaking directly with pt: Yes If no, then to whom and why: Directive Status Reviewed: Yes If no, explain: Allergies Reviewed: Yes If no, explain: Medications Reviewed: Yes If no, explain: Pharmacy Reviewed: Yes If no, explain: Pt reported vitals obtained: No Pt questions for provider: na Patient informed that they will be contacted within 20 minutes + or - of their scheduled ap pt time. Pt given instruction to call back for any questions or issues. documented in this encounter Plan of Treatment Not on filedocumented as of this encounter Visit Diagnoses + + | Diagnosis | + + | 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
--- OUTSIDE RECORDS SUMMARY | ~2020-03-12 | XMS | Encounter Summary ---
Demographics + + + | Address | [address] | | | [place] [address] | + + + | Home Phone | | + + + | Preferred Language | Unknown | + + + | Marital Status | Single | + + + | Sabianism Affiliation | NRP | + + + [...] Team Providers + +------+ + | Care Hotel Assistant General Manager Name | Role | Phone | [...] | | | | | (HCC) | [place] | [place] | | | | | Procedures | [address] | [address] | | | | | [place] EST | Phone: | Phone: | | | | | PATIENT | [phone] | [phone] | | | | | LEVEL V | Fax: | Fax: | | | | | | [phone] | [phone] | + +--------+ + + + + Encounter Details +--------+---------+ + + + | Date | Type | Department | Care Team | Description | +--------+---------+ + + + | 02/01/ | Office | [facility] | Sejal De La Torre | Hx of allogeneic | | 2020 | Visit | Clinics at S | N, DO [address] | stem cell transplant | | | | [place] [address] | (HCC) (Primary Dx); | | | | [facility] | [place], [place] | Fatigue, | | | | [facility] and Healing, | [address] | unspecified type; | | | | [address] | [phone] | S/P cord blood | | | | [place], [place] | | transplantation | | | | [address] | | | | | | [phone] | | | +--------+---------+ + + + [...] + + + | Blood Pressure | 155/77 | 02/02/2020 10:37 AM | | | | | PDT | | + + + + + | Pulse | 64 | 02/02/2020 10:37 AM | | | | | PDT | | + + + + + | Temperature | 36.9 C (98.4 F) | 02/02/2020 10:37 AM | | | | | PDT | | + + + + + | Respiratory Rate | 18 | 02/02/2020 10:37 AM | | | | | PDT | | + + + + + | Oxygen Saturation | 97% | 02/02/2020 10:37 AM | | | | | PDT | | + + + + + | Inhaled Oxygen | - | - | | | Concentration | | | | + + + + + | Weight | 65.3 kg (144 lb) | 02/02/2020 10:37 AM | | | | | PDT | | + + + + + | Height | - | - | | + + + + + | Body Mass Index | 26.57 | 07/08/2019 4:32 PM | | | [...] Patient Instructions Patient Instructions Sejal De La Torre, - 02/02/2020 10:45 AM PDTFormatting of this not e might be different from the original. Lab Results Component Value Date WBC 5.23 02/02/2020 HB 10.0 02/02/2020 HCT 33.1 02/02/2020 PLT 120 02/02/2020 MCV 95.4 02/02/2020 RDW 53.8 02/02/2020 Lab Results Component Value Date BICARB 26 02/02/2020 TBILI 0.6 02/02/2020 CA 8.7 02/02/2020 CL 101 02/02/2020 CR 1.20 (H) 02/02/2020 GLU 138 (H) 02/02/2020 AP 83 02/02/2020 TP 6.6 02/02/2020 BUN 30 (H) 02/02/2020 ALB 3.7 02/02/2020 AST 20 02/02/2020 NA 134 (L) 02/02/2020 K 4.5 02/02/2020 ALT 37 02/02/2020 1. Call the BMT clinic ([phone]) or BMT person on-call ([phone]) for: Any temp > 100.4 Nausea/vomiting unresponsive to anti-nausea medications Significant diarrhea despite Imodium Inability to drink at least 2 liters of fluid daily You develop a rash Bleeding 2. Immunosuppression changes: We will contact you regarding your tacrolimus dose adjustment . 3. Other medication changes: 1) For your high blood pressure-start losartan 25 mg at night 2) Plan to wean your prednisone to 10 mg daily 02/09/20 3) For your fatigue, try taking the lexapro at night. We will also check your thyroid funct ion 4) Follow-up plan: in person visit 02/22 documented in this encounter Progress Notes Sejal De La Torre DO - 02/02/2020 10:45 AM PDT 02/02/2020 - Day +286 post transplant CHM Physician: Sejal De La Torre DO Local oncologist: Dr. Sequeira Hematologic Malignancy: MDS Conditioning regimen: FluCyTBI Date of transplant: 04/22/2019 Donor: CBU 1: [id number]/02 match, CBU 2: [id number]/02 match Research study: Ruperto "[id number]: A Multicenter, Randomized, Phase III Registration Tr [...] dropping counts. --Jun. Moved to [place] ([facility]) -- 10/07/18 showed normal chemistries, [...] for D4-D7. 01/14-01/26/2019 admitted for zoster to [facility]. Vidaza held. 02/17/2019- seen at [facility] by Dr. De La Torre, no healthy siblings so cord blood is only option -consented to [employer] "[id number]: A Multicenter, Randomized, Phase III Registration Tri il of Transplantation of NiCord, Ex Vivo Expanded, UCB-derived, Stem and Progenitor Cells, vs. Unmanipulated UCB for Patients With Hematological Malignancies". She was randomized to SOC arm. --02/21-03/01 C3 aza.Tolerated well without complications. --04/15-05/18/2019 admitted to [facility] for planned flu/cy/tbi conditioned UCB [...] gradual taper. Interval History: Nona is present for follow up post transplant. She is now more than si x months out from her transplant and comes to clinic for lymphocyte testing and a bone marro w biopsy. She is feeling well. No complaints. Her rash has improved overall. She has no diar keegan, nausea or vomiting. Her activity continues to improve and she is increasing her streng th with at home exercises. Her eye symptoms improved. She has daily fatigue. No SOB. Just fe els like she needs a nap after activity. Sleeps well at night. Review of Systems Constitutional: Negative for chills, fever, malaise/fatigue and weight loss. HENT: Negative for congestion, hearing loss, sinus pain, sore throat and tinnitus. Eyes: Negative for discharge and redness. Respiratory: Negative for cough and shortness of breath. Cardiovascular: Negative for chest pain, palpitations and orthopnea. Genitourinary: Negative for dysuria, frequency and urgency. Musculoskeletal: Negative for falls and myalgias. Skin: Negative for itching and rash. Neurological: Positive for weakness (improved). Negative for dizziness and headaches. Endo/Heme/Allergies: Positive for environmental allergies. Does not bruise/bleed easily. Psychiatric/Behavioral: Negative for depression. The patient is not nervous/anxious. Current Medication List Name Sig CARVEDILOL 25 MG TABLET Take 1 tablet by mouth two times daily. Administer with food. DAPSONE 100 MG TABLET TAKE 1 TABLET BY MOUTH ONCE DAILY, PNEUMONIA PREVENTION ESCITALOPRAM 20 MG TABLET Take 1 tablet by mouth once daily. Indications: major depressive disorder GUAIFENESIN ER 600 MG TABLET, EXTENDED RELEASE 12 HR Take 1 tablet by mouth two times daily . HYDROCORTISONE 2.5 % TOPICAL OINTMENT Apply to affected area two times daily. Apply a thin film to clean, dry skin and rub in gently. Indications: skin hkzig-vyuklp-occa disease MAGNESIUM OXIDE-MAGNESIUM AMINO ACID CHELATE 133 MG TABLET Take 2 tablets by mouth two time s daily. OMEPRAZOLE 40 MG CAPSULE,DELAYED RELEASE Take 1 capsule by mouth once daily. Administer 30 to 60 minutes before meals POSACONAZOLE 100 MG TABLET,DELAYED RELEASE Take 4 tablets by mouth once daily. Indications: prevention of fungal infection PREDNISONE 10 MG TABLET As of 01/26/20: Decrease to 15mg once //, 10 mg every other day TACROLIMUS 0.5 MG CAPSULE As of 11/03/19: Current dose is 0.5mg once daily. On days of your blood draws, do not take your morning dose but bring it with you to take after your blood d raw. Indications: GvHD. Indications: prevention of graft versus host TACROLIMUS 1 MG CAPSULE As of 11/03/19: Current dose is 0.5mg once daily. On days of your b lood draws, do not take your morning dose but bring it with you to take after your blood dra garcia Indications: GvHD. Indications: prevention of graft versus host disease VALACYCLOVIR 500 MG TABLET Take 1 tablet by mouth two times daily. BP 155/77 (BP Location: Right upper arm, Patient Position: Sitting) | Pulse 64 | Temp 36. 9 C (98.4 F) (Oral) | Resp 18 | Wt 65.3 kg (144 lb) | SpO2 97% | BMI 26.57 kg/m | BSA 1.69 m Physical Exam Constitutional: She is oriented to person, place, and time. She appears well-developed and well-nourished. HENT: Head: Normocephalic and atraumatic. Eyes: Pupils are equal, round, and reactive to light. Conjunctivae are normal. Neck: Normal range of motion. Neck supple. Cardiovascular: Normal rate and regular rhythm. Pulmonary/Chest: Effort normal and breath sounds normal. Abdominal: Soft. Bowel sounds are normal. She exhibits no distension. There is no abdominal tenderness. Musculoskeletal: Normal range of motion. General: No edema. Neurological: She is alert and oriented to person, place, and time. Skin: Rash (erythematous, raised rash to face and upper chest ~10% BSA) noted. Psychiatric: She has a normal mood and affect. Laboratory Results: Lab Results Component Value Date WBC 5.23 02/02/2020 HB 10.0 02/02/2020 HCT 33.1 02/02/2020 PLT 120 02/02/2020 MCV 95.4 02/02/2020 RDW 53.8 02/02/2020 Chemistries: Last 72 Hours (or 3 results) - Refreshable Recent Labs 02/02/20 0938 NA 134* K 4.5 CL 101 BICARB 26 BUN 30* EGFRAFRICAN 56* CR 1.20* GLU 138* CA 8.7 MG 2.2 PO4 3.7 Bone marrow aspirate, clot section, core biopsy and peripheral blood: - Normocellular (40%) marrow with trilineage hematopoiesis - No definitive morphologic or immunophenotypic evidence of myelo dysplastic syndrome - T-cells without antigen aberrancy and increased CD4:CD8 ratio ( 16:1) - Lymphopenia, left-shifted myeloid series, normocytic anemia, and thrombocyto penia Assessment/Plan: 1. Hematology: History of MDS s/p FluCyTBI double cord (Day 0=04/22/19) She is enrolled in [facility] "[id number]: A Multicenter, Randomized, Phase III Registration Trial of Transplant ation of NiCord, Ex Vivo Expanded, UCB-derived, Stem and Progenitor Cells, vs. Unmanipulat ed UCB for Patients With Hematological Malignancies". She was randomized to SOC arm.Her re cent bone marrow studies on 07/28/19 showed hypocellular marrow (25%) with trilineage hematop oiesis with no evidence of disease. Her karyotype was normal and no prior mutations were det ected on [employer]. Her engraftment studies show 100% donor #2 (female) D+90. PB chimerism 07/21-100% cord #2 -BMBx completed on 11/03/19 RIRI, cyto normal. 100% cord 2. 2. GVHD: Probable skin and upper/lower GI [...] and prednisone was increased to 30mg daily. Today she has improve d skin and no symptoms. -Prednisone: wean pred 10 mg on 02/09/20 -Tacrolimus, continue with goal 5-10 -Hydrocortisone BID to facial rash. Ruperto Simpson phase 3 (IRB 50193) Acute GVHD Staging Complete on study visit [...] mL diarrhea/day 2 25-50% BSA 3.1-6 mg/dL 4245-2049 mL diarrhea/day 3 >50% BSA Generalized erythroderma [...] toxicity:n TPN:n Infection:y Other (describe):n Complete Values: BSA%:10 Bullae (Y/N):n TBili: 0.6 24H Diarrhea Vol: 2 BMs Severe abd pain (Y/N): n Ileus (Y/N):n Assign Stage: 1 0 Biopsy not c/w GVHD, +colitis Biopsy not c/w GVHD Presumptive/ Confirmed Dx of aGVHD? 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 Unchange d from prior. Due for PFTs scheduled at end of the month 3. ID: Recent admission for colitis and s/p Cirpo/Flagyl x7 days through 07/19/19. Continue prophylactic antimicrobials with Valtrex (recent hx HSV, will continue through Day +365), po saconazole and dapsone (allergy to Sulfa). Of note, patient is toxo negative. -Per cord protocol: Check EBV and HHV6 monthly and PRN. No hx of viremia -Continue posaconazole Vaccinations: Influenza vaccine administered 07/28/19 and Prevnar#1 administered on 07/28/19. Conjunctivitis, R>L: Eye redness with increased watering and discharge which has improved. -Erythromycin ointment QID x4 days -Warm compresses TID 4. HTN-poorly controlled. On coreg and start losartan 5. SAM -peaked at Cr 1.8. improving likely related CNI. Renal uS normal. 6. FEN: Labs reviewed and electrolytes WNL. Continue oral mag and potassium replacements. 7. GI: Risk of gastritis: Continue omeprazole 40 mg daily 6. Pysch: #Depression:Stable, continue home SSRI. -Lexapro 20 mg PO daily 8. MSK: Deconditioning post transplant with right foot drop and leg weakness, R>L. This is improving overtime. -Continue strength training exercises and walking at home Patient Instructions 1. Call the BMT clinic ([phone]) or BMT person on-call ([phone]) for: Any temp > 100.4 Nausea/vomiting unresponsive to anti-nausea medications Significant diarrhea despite Imodium Inability to drink at least 2 liters of fluid daily You develop a rash Bleeding 2. We'll call you to adjust your Tacrolimus if necessary. 3. RTC in person 02/23/20 Sejal De La Torre DO Teacher Vocational Trainingsharepoint manager [facility] documented in this encounter Plan of Treatment + +------+--------+ + + | Name | Type | Priori | Associated Diagnoses | Order Schedule | | | | ty | | | + +------+--------+ + + | LIPID SET (TRIG, T | Lab | Routin | Hx of allogeneic | Expected: 02/23/2020 | | CHOL, HDL, CALC LDL) | | e | stem cell transplant | (Approximate), | | | | | (HCC) | Expires: 03/04/2021 | + +------+--------+ + + documented as of this encounter Procedures + +--------+ + + + | Procedure Name | Priori | Date/Time | Associated Diagnosis | Comments | | | ty | | | | + +--------+ + + + | CHIMERISM SORTED | Routin | 02/23/2020 | Hx of allogeneic | Results for this | | CELLS, DNA, BLOOD | e | 10:24 AM | stem cell transplant | procedure are in the | | (KDL) | | PDT | (HCC) | results section. | + +--------+ + + + | CHIMERISM SORTED | Routin | 02/23/2020 | Hx of allogeneic | Results for this | | CELLS, DNA, BLOOD | e | 10:24 AM | stem cell transplant | procedure are in the | | | | PDT | (HCC) | results section. | + +--------+ + + + | TSH W/REFLEX TO FREE | Routin | 02/02/2020 | Fatigue, | Results for this | | T4(IF ABNORMAL) | e | 9:38 AM | unspecified type | procedure are in the | | | | PDT | | results section. | + +--------+ + + + documented in this encounter Results CHIMERISM SORTED CELLS, DNA, BLOOD (KDL) (02/23/2020 10:24 AM PDT) + + + + + + | Component | Value | Ref Range | Performed | Pathologist | | | | | At | Signature | + + + + + + | CHIMERISM | No Host Detected | | [facility] | | | SORTED | | | DIAGNOSTIC | | | CELLS, DNA, | | | | | | BLOOD | | | LABORATORIE | | | | | | S | | + + + + + + | INTERPRETAT | Donor #1 Name/ID: NMDP | | [facility] | | | ION | [id number] Gender: | | DIAGNOSTIC | | | | MaleDonor #2 Name/ID: | | | | | | [facility] [id number] | | LABORATORIE | | | | Gender: FemaleDate of | | S | | | | Transplant: | | | | | | 04/22/2019Chimerism | | | | | | Results (Sorted | | | | | | Cells):CD3+ T-cells: 0% | | | | | | Host; 100% Donor #2 | | | | | | ([facility] [id number]); No | | | | | | Detectable Donor #1 | | | | | | ([facility] [id number])CD33+ | | | | | | Myeloid cells: 0% Host; | | | | | | 100% Donor #2 ([facility] | | | | | | [id number]); No | | | | | | Detectable Donor #1 | | | | | | ([facility] [id number])Sorted | | | | | | Cell Purity (Reported | | | | | | by the [facility] Special | | | | | | Immunology | | | | | | Laboratory):CD3+ = | | | | | | 133,000 cells; 99 % | | | | | | zcfiBP72+ = 150,000 | | | | | | cells; 99 % | | | | | | purePCR-based DNA | | | | | | profiling using Short | | | | | | Tandem Repeat (STR) | | | | | | markers on these sorted | | | | | | post-transplant | | | | | | specimens shows no | | | | | | detectable host cells in | | | | | | either the T-cell | | | | | | (CD3+) or myeloid cell | | | | | | (CD33+) lineage, and | | | | | | 100% engraftment with | | | | | | Donor #2 (and No | | | | | | Detectable Donor #1). | | | | | | This result is | | | | | | consistent with complete | | | | | | or near complete | | | | | | engraftment in both the | | | | | | T-cell and myeloid cell | | | | | | lineage. Please note | | | | | | that minor cell | | | | | | populations of less than | | | | | | 5% (of any lineage) may | | | | | | not be detected (i.e., | | | | | | the low-level analytical | | | | | | detection sensitivity | | | | | | of the assay). If you | | | | | | have any questions | | | | | | regarding this report, | | | | | | please contact the lab | | | | | | at your convenience. | | | | + + + + + + | METHOD(S) | The laboratory received | | LUPISSU-MORALES | | | | specimens from the named | | DIAGNOSTIC | | | | donor and recipient for | | | | | | the purpose of | | LABORATORIE | | | | post-transplant | | S | | | | engraftment testing. | | | | | | You were seeking | | | | | | clarification of the | | | | | | recipient's engraftment | | | | | | status post bone marrow | | | | | | transplantation. Using | | | | | | fluorescence-activated | | | | | | cell sorting, CD3+ | | | | | | T-cells and CD33+ | | | | | | myeloid cells were | | | | | | isolated to high purity | | | | | | and genomic DNA was | | | | | | prepared. PCR-based DNA | | | | | | profile testing was | | | | | | performed using | | | | | | capillary | | | | | | electrophoresis fragment | | | | | | analysis with | | | | | | fluorescent multicolor | | | | | | dye technology. Short | | | | | | tandem repeat (STR) | | | | | | markers with discrete | | | | | | allele sizes at 16 | | | | | | polymorphic loci are | | | | | | amplified in a multiplex | | | | | | PCR reaction. The STR | | | | | | loci [id number], [id number], | | | | | | [id number], CSF1PO, [id number], | | | | | | THO1, [id number], [id number], | | | | | | [id number], [id number], vWA, | | | | | | TPOX, D18S51, [id number], | | | | | | FGA and amelogenin are | | | | | | used to identify and | | | | | | quantify recipient and | | | | | | donor alleles for | | | | | | assessment of | | | | | | post-transplant | | | | | | engraftment status. | | | | | | Please note that minor | | | | | | cell populations | | | | | | composing less than 5% | | | | | | of any cell population | | | | | | may not be detected | | | | | | (i.e., low-level | | | | | | analytical detection | | | | | | sensitivity of the | | | | | | assay).Preferential | | | | | | allele amplification is | | | | | | considered in the | | | | | | interpretation of stem | | | | | | cell engraftment tests | | | | | | and loci with allelic | | | | | | imbalance are excluded | | | | | | from final quantitative | | | | | | analysis. At least | | | | | | three informative loci | | | | | | are routinely used in | | | | | | the calculations, unless | | | | | | the donor and recipient | | | | | | are syngeneic twins or | | | | | | closely related. | | | | + + + + + + | DISCLAIMER | This test was developed | | [facility] | | | | and its performance | | DIAGNOSTIC | | | | characteristics | | | | | | determined by the [facility] | | LABORATORIE | | | | [facility] | | S | | [...] | | | | | (CLIA). The [facility] | | | | | | Diagnostics | | | | | | Laboratories are fully | | | | | | licensed by the state of | | | | | | [place] under CLIA and | | | | | | are accredited by the | | | | | | [employer] | | | | | | Pathologists (CAP). | | | | | | Chain Hoist Operator: | | | | | | Tayo Singletary, | | | | | | Isabela, Ph.DReviewed | | | | | | and electronically | | | | | | signed by ZURDO Harrison | | | | | | MD MENDEZ,PhD02/29/2020 | | | | | | 6:22 PM | | | | + + + + + + + + | Specimen | + + | Blood - Blood | | (substance) | + + + + + + + | Performing | Address | City/State/Zipcode | Phone Number | | Organization | | | | + + + + + | [facility] | [address] | [place] [address] | | | DIAGNOSTIC | [address] | | | | LABORATORIES | | | | + + + + + CHIMERISM SORTED CELLS, DNA, BLOOD (02/23/2020 10:24 AM PDT) + +---------+ + + + [...] +---------+ + + + | CELLS | 133,000 | | [facility] | | | SORTED - 1 | | | LABORATORY | | | | | | SERVICES, | | | | | | SPECIAL IMM | | | | | | + COAG | | + +---------+ + + + | PURITY - 1 | 99.0 | % | [facility] | | | [...] + + | PURITY - 2 | 99.0 | % | [facility] | | | [...] | + + + + + | [facility] | [address] | [place] [address] | | | SERVICES, SPECIAL | [address] | | | | IMM + COAG | | | | + + + + + TSH W/REFLEX TO FREE T4(IF ABNORMAL) (02/02/2020 9:38 AM PDT) + +-------+ + + + | Component | Value | Ref Range | Performed | Pathologist | | | | | At | Signature | + +-------+ + + + | TSH | 1.29 | 0.50 - 5.07 | [facility] | [...] utilizing a similar TSH assay, and | MENG, CORE | | should be interpreted with caution. 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 | + + | Fatigue, unspecified type | + + | S/P cord blood transplantation Other specified organ or tissue replaced by transplant | + + documented in this encounter Administered Medications + +--------+ +--------+------+---------+ | Medication Order | MAR | Action | Dose | Rate | Site | | | Action | Date | | | | + +--------+ +--------+------+---------+ | pneumococcal (13-reina) conjugate | Given | 02/02/20 | 0.5 mL | | Left | | vaccine (PREVNAR 13) injection | | 20 11:48 | | | Deltoid | | 0.5 mL 0.5 mL, intramuscular, | | AM PDT | | | | | ONCE, 1 dose, [facility] 02/02/20 at 1145 | | | | | | + +--------+ +--------+------+---------+ +---+---+ | | | +---+---+ documented in this encounter
--- OUTSIDE RECORDS SUMMARY | ~2020-03-12 | XMS | Encounter Summary ---
Demographics + + + | Address | [address] | | | [place] [address] | + + + | Home Phone [...] Providers + +------+ + | Care Electronic Scanner Operator Name | Role | Phone | + +------+ + | Meredith Sanchez | PCP | | + +------+ + Reason for Visit + +--------+ + | Reason | Onset | Comments | | | Date | | + +--------+ + | Progress Report | 04/18/ | | | | 2018 | | + +--------+ + Encounter Details +--------+ + + + + | Date | Type | Department | Care Team | Description | +--------+ + + + + | 04/18/ | Telephone | Radiation Oncology | Nurse, [address] | Progress Report | | 2019 | | at [facility] [address] | [address] [facility] | | | | | [address] | [address] [place], [place] | | | | | [place], 4th floor | [address] | | | | | [place], [place] | | | | | | [address] | | | | | | [phone] | | | +--------+ + + + [...] this encounter Miscellaneous Notes Telephone Encounter - Meli Duke RN - 04/18/2019 8:20 AM [facility] called inpatient unit 14K for progress report on patient prior to radiotherapy and spoke to AMARI Cui -Pt ambulatory status is: up ad cm -Pt does not use a cane or walker -Pt will be transported via: stretcher -Pt is able to lay flat on treatment table for duration of RT -Pt is not on supplemental oxygen -Pt's pain is not a concern -Other nursing concerns are: pt's PICC is very sore; inpatient RN has paged the inpatient p hysician team about this. documented in this encounter Plan of Treatment Not on filedocumented as of this encounter Visit Diagnoses Not on filedocumented in this encounter"
--- OUTSIDE RECORDS SUMMARY | ~2020-03-12 | XMS | Encounter Summary ---
Demographics + + + | Address | [address] | | | [place] [address] | + + + | Home Phone | | + + + | Preferred Language | Unknown | + + + | Marital Status | Single | + + + | Rastafarian Affiliation | NRP | + + + | Race | White | + + + | Ethnic Group | Not or | + + + Author + + + | Author | [facility] | + + + | Organization | [facility] | + + + | Address | Unknown | + + + | Phone | Unavailable | + + + Support + + +---------+ + | Name | Relationship | Address | Phone | + + +---------+ + | Claudia Cota | ECON | Unknown | | + + +---------+ + Care Team Providers + +------+ + | Care Maintenance Clerk Name | Role | Phone | + +------+ + | Meredith Sanchez | PCP | | + +------+ + Encounter Details +--------+ + + + + | Date | Type | Department | Care Team | Description | +--------+ + + + + | 01/17/ | Pharmacy | Specialty Pharmacy | | | | 2019 | Visit | Services [address] | | | | | | [address] | | | | | | [place], [place] | | | | | | [address] | | | | | | [phone] | | | +--------+ + + + [...]
--- OUTSIDE RECORDS SUMMARY | ~2020-03-12 | XMS | Encounter Summary ---
Demographics + + + | Address | [address] | | | [place] [address] | + + + | Home Phone [...] Team Providers + +------+ + | Care Detasseling Crew Supervisor Name | Role | Phone | + +------+ + | Meredith Sanchez | PCP | | + +------+ + Reason for Visit + + + | Reason | Comments | + + + | Intravenous infusion | Mag | + + + Other (Routine) + +--------+ + + + + | Status | Reason | Specialty | Diagnoses / | Referred By | Referred To | | | | | Procedures | Contact | Contact | + +--------+ + + + + | Authorized | | Hematology | Diagnoses | [place], | [facility] | | | | 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 | Sejal Meadows, | [facility] [address] | | | | | (myelodyspla | DO [address] | | | | | stic | Jon Valverde | [place] [facility] | | | | | syndrome) | [address] | Health and | | | | | (HCC) | [place], [place] | Healing, | | | | | | [address] | [address] | | | | | | Phone: | [place], [place] | | | | | | [phone] | [address] | | | | | | Fax: | Phone: | | | | | | [phone] | [phone] | | | | | | | Fax: | | | | | | | [phone] | + +--------+ + + + + Encounter Details +--------+ + + + + | Date | Type | Department | Care Team | Description | +--------+ + + + + | 08/01/ | Hospital | [facility] | | | | 2020 | Encounter | Clinics at S | | | | | | [facility] [address] | | | | | | [address] [place] [facility] | | | | | | Health and Healing, | | | | | | [address] | | | | | | [place], [place] | | | | | | [address] | | | | | | [phone] | | | +--------+ + + + [...] + + + | Blood Pressure | 147/85 | 08/01/2019 2:58 PM | | | | | PST | | + + + + + | Pulse | 81 | 08/01/2019 2:58 PM | | | | | PST | | + + + + + | Temperature | 37 C (98.6 F) | 08/01/2019 2:58 PM | | | | | PST | | + + + + + | Respiratory Rate | 16 | 08/01/2019 2:58 PM | | | | | PST | | + + + + + | Oxygen Saturation | 97% | 08/01/2019 2:58 PM | | | | | PST | | + + + + + | Inhaled Oxygen | - | - | | | Concentration | | | | + + + + + | Weight | 55.8 kg (123 lb) | 08/01/2019 2:58 PM | | | | | PST | | + + + + + | Height | - | - | | + + + + + | Body Mass Index | 22.69 | 07/08/2019 4:32 PM | | | [...] encounter Progress Notes Dionne Barreto RN - 08/01/2019 2:30 PM PST INFUSION NURSING NOTE Allergies: Nona is allergic to cefepime and sulfa (sulfonamide antibiotics). Narrative: Nona is a 53yo female with a history of MDS, followed by Dr. De La Torre, now s/p Flu/Cy/TBI c onditioned allo transplant (day 0 = 04/22/2019). Patient arrives ambulatory to clinic for a infusions. Nursing Assessment: Fever/Chills/Infection: No SOB / Cough: No Dizziness/Lightheaded/Fatigue: No Signs/Symptoms Bleeding: No Neuropathy: No Mucositis: No Nausea/Vomiting: No Appetite: good. Diarrhea/Constipation: No PO Fluid Intake: 2 liters. Rash/Skin sores/Edema: No Urinary Issues: No Pain: No Vascular Access: Labs drawn in starter. Line will be removed tomorrow. Dressing CDI Per Orders: Infusion Plan: Magnesium Sulfate 4 gm in 100 mL NS infused over 2 hours per supportive care orders for a magnesium level of 1.5. For infusion details, see MAR. Patient was reminded to call clinic with temp > 100.4, chills, s/s of bleeding or uncontrol led N/V/D/C. Patient d/c d ambulatory with self. Dionne Barreto RN Dionne Conklin RN - 08/01/2019 2:30 PM PSTx 6: 22 PM PSTdocumented in this encounter Plan of [...] in water IV | New Bag | 08/01/19 | 4 g | | | | (RTU) 4 g 4 g, intravenous, | | 20 3:06 | | | | | ONCE, 1 dose, 08/01/19 at 1500 | | PM PST | | | | + +---------+ +------+------+------+ +---+---+ | | | +---+---+ documented in this encounter"
--- OUTSIDE RECORDS SUMMARY | ~2020-03-12 | XMS | Encounter Summary ---
Demographics + + + | Address | [address] | | | [place] [address] | + + + | Home Phone [...] Team Providers + +------+ + | Care Merchandise Flow Associate Name | Role | Phone | [...] 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 | Sejal Meadows, | [facility] [address] | | | | | (myelodyspla | DO [address] | | | | | stic | Jon Valverde | [facility] | | | | | syndrome) | [facility] | [facility] and | | | | | (HCC) | [place], [place] | Healing, | | | | | Procedures | [address] | [address] | | | | | [place] | Phone: | [place], [place] | | | | | OFFICE/OUTPT | [phone] | [address] | | | | | | Fax: | Phone: | | | | | VISIT,EST,LE | [phone] | [phone] | | | | | VL IV [place] | | Fax: | | | | | EST PATIENT | | [phone] | | | | | LEVEL V | | | +--------+--------+ + + + + Encounter Details +--------+ + + + + | Date | Type | Department | Care Team | Description | +--------+ + + + + | 07/28/ | Clinical | Laboratory at [facility] | | Lab Draw | | 2019 | Support | [address] | | | | | Staff | [facility] | | | | | | and Healing, | | | | | | [address] | | | | | | [place], [place] | | | | | | [address] | | | | | | [phone] | | | +--------+ + + + [...] documented as of this encounter Progress Notes Tiffani Austin RN - 07/28/2019 8:00 AM Blaise accessed per protocol. Good blood return noted. Appropriate waste discarded. Labs drawn and sent. Gabriel pulse flushed wi th 20 mL NS. Tacrolimus Patient did not take her Tacrolimus this morning. Nona reports she currently takes Tacrol imus 0.5 mg every morning and 0.5 mg every evening. This is the correct dose according to he r most recent dose adjustment. Nona took her last dose at 2130 (time) on 07/27/2019 (date) . Pt discharged ambulatory to her provider appointment. documented in this encounter Plan of Treatment Not on filedocumented as of this encounter Procedures + +--------+ + + + | Procedure Name | Priori | Date/Time | Associated Diagnosis | Comments | | | ty | | | | + +--------+ + + + | [facility] - MAGNESIUM, | Routin | 07/28/2019 | S/P cord blood | Results for this | | PLASMA | e | 8:07 AM | transplantation MDS | procedure are in the | | | | PST | (myelodysplastic | results section. | | | |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) | | + +--------+ + + + | [facility] - PHOSPHORUS, | Routin | 07/28/2019 | S/P cord blood | Results for this | | PLASMA | e | 8:07 AM | transplantation MDS | procedure are in the | | | | PST | (myelodysplastic | results section. | | | |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) | | + +--------+ + + + | [facility] - LDH TOTAL, | Routin | 07/28/2019 | S/P cord blood | Results for this | | PLASMA | e | 8:07 AM | transplantation MDS | procedure are in the | | | | PST | (myelodysplastic | results section. | | | | | syndrome) ([facility]) | | + +--------+ + + + | RBC MORPHOLOGY | Routin | 07/28/2019 | S/P cord blood | Results for this | | | e | 8:07 AM | transplantation MDS | procedure are in the | | | | PST | (myelodysplastic | results section. | | | | | syndrome) ([facility]) | | + +--------+ + + + | CBC AND AUTO DIFF | Routin | 07/28/2019 | S/P cord blood | Results for this | | | e | 8:07 AM | transplantation MDS | procedure are in the | | | | PST | (myelodysplastic | results section. | | | | | syndrome) ([facility]) | | + +--------+ + + + | [facility] - COMPLETE | Routin | 07/28/2019 | S/P cord blood | Results for this | | METABOLIC SET | e | 8:07 AM | transplantation MDS | procedure are in the | | | | PST | (myelodysplastic | results section. | | | | | syndrome) ([facility]) | | + +--------+ + + + | [facility] CBC W | Routin | 07/28/2019 | S/P cord blood | Results for this | | DIFFERENTIAL | e | 8:07 AM | transplantation MDS | procedure are in the | | | | PST | (myelodysplastic | results section. | | | | | syndrome) ([facility]) | | + +--------+ + + + | TACROLIMUS, WHOLE | Routin | 07/28/2019 | S/P cord blood | Results for this | | BLOOD | e | 8:07 AM | transplantation MDS | procedure are in the | | | | PST | (myelodysplastic | results section. | | | | | syndrome) ([facility]) | | + +--------+ + + + documented in this encounter Results RBC MORPHOLOGY (07/28/2019 8:07 AM PST) + + + + + + | Component | Value | Ref Range | Performed | Pathologist | | | | | At | Signature | + + + + + + | ANISOCYTOSI | 1+(10-25cells/HPF) | | [facility] | | | S | | | LABORATORY | | | | | | SERVICES, | | | | | | [facility] + | | | | | | HEALING | | + + + + + + | MACROCYTOSI | 1+(10-25cells/HPF) | | [facility] | | | S | | | LABORATORY | | | | | | SERVICES, | | | | | | [facility] | | [facility] + | | | | | | HEALING | | + + + + + + | POLYCHROMAS | 1+ (<2-4cells/HPF) | | [facility] | | | IA | | | LABORATORY | | | | | | SERVICES, | | | | | | [facility] | | [facility] + | | | | | | HEALING | | + + + + + + | SCHISTOCYTE | 1+ (<2-4cells/HPF) | | [facility] | | | S | | | LABORATORY | | | | | | SERVICES, | | | | | | [facility] | | | | [facility] + | | | | | | HEALING | | + + + + + + | OVALOCYTES | 1+(10-25cells/HPF) | | [facility] | | | | | | LABORATORY | | | | | | SERVICES, | | | | | | [facility] | | | [facility] + | | | | | | HEALING | | + + + + + + | TEAR DROP | 2+(5-10cells/HPF) | | [facility] | | | CELLS | | | LABORATORY | | | [...] | + + + + + | [facility] | [address] | [place] [address] | | | SERVICES, [place] [facility] | | | | | HE[facility] + HEALING | | | | + + + + + CBC AND AUTO DIFF (07/28/2019 8:07 AM PST) + + + + + + | Component | Value | Ref Range | Performed | Pathologist | | | | | At | Signature | + + + + + + | WHITE CELL | 5.79 | 3.50 - 10.80 | [facility] | | | COUNT | | K/cu mm | LABORATORY | | | | | | SERVICES, | | | | | | [facility] | | [facility] + | | | | | | HEALING | | + + + + + + | RED CELL | 3.52 (L) | 4.00 - 5.20 | [facility] | | | COUNT | | M/cu mm | LABORATORY | | | | | | SERVICES, | | | | | | [facility] | | | | [facility] + | | | | | | HEALING | | + + + + + + | HEMOGLOBIN | 10.8 (L) | 12.0 - 16.0 | [facility] | | | | | g/dL | LABORATORY | | | | | | SERVICES, | | | | | | [facility] | | | [facility] + | | | | | | HEALING | | + + + + + + | HEMATOCRIT | 34.4 (L) | 36.0 - 46.0 % | [facility] | | | | | | LABORATORY | | | | | | SERVICES, | | | | | | [facility] | | [facility] + | | | | | | HEALING | | + + + + + + | MCV | 97.7 | 80.0 - 100.0 fL | [facility] | | | | | | LABORATORY | | | | | | SERVICES, | | | | | | [facility] | | [facility] + | | | | | | HEALING | | + + + + + + | MCHC | 31.4 (L) | 32.0 - 36.0 | [facility] | | | | | g/dL | LABORATORY | | | | | | SERVICES, | | | | | | [facility] | | | [facility] + | | | | | | HEALING | | + + + + + + | RDW SD | 73.5 (H) | 35.1 - 46.3 fL | [facility] | | | | | | LABORATORY | | | | | | SERVICES, | | | | | | [facility] | [facility] | | | | [facility] + | | | | | | HEALING | | + + + + + + | PLATELET | 114 (L) | 150 - 400 K/cu | [...] + + + + | NEUTROPHIL | 58.7 | 50.0 - 70.0 % | [facility] | | | % | | | LABORATORY | | | | | | SERVICES, | | | | | | [facility] | | | [facility] + | | | | | | HEALING | | + + + + + + | LYMPHOCYTE | 24.4 | 18.0 - 42.0 % | [facility] | | | % | | | LABORATORY | | | | | | SERVICES, | | | | | | [facility] | [facility] | | | | [facility] + | | | | | | HEALING | | + + + + + + | MONOCYTE % | 10.7 (H) | 3.5 - 9.0 % | [facility] | | | | | | LABORATORY | | | | | | SERVICES, | | | | | | [facility] | | | | | | [facility] + | | | | | | HEALING | | + + + + + + | EOS % | 4.1 (H) | 1.0 - 3.0 % | [...] + + + + | IG% | 1.9 (H) | 0.0 - 1.0 % | [facility] | | | | | | LABORATORY | | | | | | SERVICES, | | | | | | [facility] | | | | [facility] + | | | | | | HEALING | | + + + + + + | NEUTROPHIL | 3.40 | 1.80 - 7.70 | [facility] | | | # | | K/cu mm | LABORATORY | | | | | | SERVICES, | | | | | | [facility] | | [facility] | | | [facility] + | | | | | | HEALING | | + + + + + + | NEUTROPHIL | 3.40Comment: Preliminary | 1.80 - 7.70 | [facility] [...] + + + + | LYMPHOCYTE | 1.41 | 1.00 - 4.80 | [facility] | [...] + + + + | IG# | 0.11 (H) | 0.00 - 0.10 | [facility] [...] | included in the neutrophil count. | [place] [facility] | | | [facility]ALTH + | | | HEALING | + + + + + + + + | Performing | Address | City/State/Zipcode | Phone Number | | Organization | | | | + + + + + | [facility] | [address] | [place] [address] | | | SERVICES, [place] [facility] | | | | | HE[facility] + HEALING | | | | + + + + + [facility] - COMPLETE METABOLIC SET (07/28/2019 8:07 AM PST) + +---------+ + + + | Component | Value | Ref Range | Performed | Pathologist | | | | | At | Signature | + +---------+ + + + | GLUCOSE, | 84 | 70 - 99 mg/dL | [facility] | | | PLASMA | | | LABORATORY | | | (LAB) | | | SERVICES, | | | | | | [facility] | | | | [facility] + | | | | | | HEALING | | + +---------+ + + + | BUN, PLASMA | 21 (H) | 6 - 20 mg/dL | [...] | | | LABORATORY | | | BULGARIAN | | | SERVICES, | | | [...] +---------+ + + + | CHLORIDE, | 103 | 97 - 108 mmol/L | [facility] [...] +---------+ + + + | ALBUMIN, | 3.3 (L) | 3.5 - 4.7 g/dL | [facility] | | | PLASMA | | | LABORATORY | | | (LAB) | | | SERVICES, | | | | | | [facility] | | | | [facility] + | | | | | | HEALING | | + +---------+ + + + | ALK PHOS | 87 | 42 - 98 U/L | [facility] [...] + + + | ALT (SGPT) | 21 | <=60 U/L | [facility] | | [...] +---------+ + + + | BUN/CREATIN | 29 (H) | 8 - 25 | [facility] | | | INE RATIO | | | LABORATORY | | | | | | SERVICES, | | | | | | [facility] | | | | | | [facility] + | | | | | | HEALING | | + +---------+ + + + | GLOBULIN | 3.2 | 2.3 - 3.5 gm/dL | [facility] | | | LVL | | | LABORATORY | | | | | | SERVICES, | | | | | | [facility] | | | | | | [facility] + | | | | | | HEALING | | + +---------+ + + + | ALBUMIN/BURTON | 1.0 | 0.9 - 2.0 | [facility] | [...] MDRD equation recommended by the National | [facility] | | Kidney Disease Education [...] LABORATORY | [address] | [place] [address] | | | SERVICES, [place] [facility] | | | | | [facility] + HEALING | | | | + + + + + [facility] - LDH TOTAL, PLASMA (07/28/2019 8:07 AM PST) + +---------+ + + + | Component | Value | Ref Range | Performed | Pathologist | | | | | At | Signature | + +---------+ + + + | LD TOTAL, | 208 | <=250 U/L | [facility] | | [...] [facility] | [address] | [place] [address] | | | SERVICES, [facility] | | | | | HEALTH + HEALING | | | | + + + + + [facility] - MAGNESIUM, PLASMA (07/28/2019 8:07 AM PST) + +---------+ + + + [...] SERVICES, | | | | | | [place] [facility] | | | | | | [...] | [facility] | [address] | [place] [address] | | | SERVICES, [place] [facility] | | | | | HE[facility] + HEALING | | | | + + + + + [facility] - PHOSPHORUS, PLASMA (07/28/2019 8:07 AM PST) + +-------+ + + + [...] + + + + + | [facility] | [address] | [place] [address] | | | SERVICES, [place] [facility] | | | | | [facility] + HEALING | | | | + + + + + TACROLIMUS, WHOLE BLOOD (07/28/2019 8:07 AM PST) + +-------+ + + + | Component | Value | Ref Range | Performed | Pathologist | | | | | At | Signature | + +-------+ + + + | TACROLIMUS | 9.6 | 5.0 - 15.0 | [facility] | [...] | Test performed by immunoassay using [employer] i2000. . | [facility] | | Samples [...] | + + + + + | [facility] | [address] | [place] [address] | | | SPECIAL MENG | JASON [...]
--- OUTSIDE RECORDS SUMMARY | ~2020-03-12 | XMS | Encounter Summary ---
Demographics + + + | Address | [address] | | | [place] [address] | + + + | Home Phone [...] Team Providers + +------+ + | Care Print Production Coordinator Name | Role | Phone | + +------+ + | Meredith Sanchez | PCP | | + +------+ + Reason for Visit + +--------+ + | Reason | Onset | Comments | | | Date | | + +--------+ + | Refill Request | 02/27/ | [facility] | | | 2020 | | + +--------+ + Encounter Details +--------+--------+ + + + | Date | Type | Department | Care Team | Description | +--------+--------+ + + + | 02/27/ | Refill | [facility] | Wil Sejal | Refill Request | | 2020 | | Clinics at S | N, DO [address] | ([facility]) | | | | [facility] [address] | | | | | [facility] for | [place], [place] | | | | | Health and Healing, | [address] | | | | | [address] | [phone] | | | | | [place], [place] | | | | | | [address] | | | | | | [phone] | | | +--------+--------+ + + + [...] Telephone Encounter - Tayo Osborne MA - 02/28/2020 10:57 AM PDTFormatting of this no te might be different from the original. [facility] [place] [facility] Phone #: [phone] Last appointment with Cathy GONZÁLES was on 02/23/20. Pt has no scheduled appts. Per last OV: "Plan for follow up by phone in 2 weeks and in-pers on visit in 4 weeks" Last LIP progress note reviewed. Is there documentation to indicate that medication being r equested has been changed or discontinued? No Allergy list reviewed--Is the medication being requested on the patient's current allergy l ist? No Previous Prescription Details copied below: Date and Time Department Ordering Authorizing 02/13/2020 9:02 AM Dermatology Medical at [facility] Evens Gross MA Unknown Outpatient Medication Detail Disp Refills [facility] 133 mg oral tablet Sig: TAKE 2 TABLETS BY MOUTH 4 TIMES DAILY Class: Historical Med Order: [id number] Per [facility] policy, routing encounter to [facility] for review and approval. documented in this encounter Plan of Treatment Not on filedocumented as of this encounter Visit Diagnoses Not on filedocumented in this encounter
--- OUTSIDE RECORDS SUMMARY | ~2020-03-12 | XMS | Encounter Summary ---
Demographics + + + | Address | [address] | | | [place] [address] | + + + | Home Phone [...] Team Providers + +------+ + | Care Printed Circuit Board Designer Name | Role | Phone | + +------+ + | Meredith Sanchez | PCP | | + +------+ + Encounter Details +--------+ + + + + | Date | Type | Department | Care Team | Description | +--------+ + + + + | 10/05/ | Lab | [facility] [address] | | | 2019 | Requisition | [address] | [address] | | | | | [place], [place] | [address] | | | | | [address] | [place], [place] | | | | | | [address] | | | | | | [phone] | | | | | | | [...] | + +--------+ + + + | MPL, BLOOD | Routin | 10/04/2019 | Myelodysplastic | Results for this | | | e | 3:53 PM | syndrome, | procedure are in the | | | | PDT | unspecified (HCC) | results section. | + +--------+ + + + | SPECIMEN ROUTING | Routin | 10/04/2019 | Myelodysplastic | | | | e | 3:53 PM | syndrome, | | | | | PDT | unspecified (HCC) | | + +--------+ + + + documented in this encounter Results SPECIMEN ROUTING (10/04/2019 3:53 PM PDT) + + | Specimen | + + | Blood | + + + + + + + | Performing | Address | City/State/Zipcode | Phone Number | | Organization | | | | + + + + + | [facility] | [address] | [place] [address] | | | SERVICES, CORE | [address] | | | + + + + + MPL, BLOOD (10/04/2019 3:53 PM PDT) + + + + + + | Component | Value | Ref Range | Performed | Pathologist | | | | | At | Signature | + + + + + + | MPL | Undetected. | | [facility] | | | MUTATION | | | DIAGNOSTIC | | | ANALYSIS | | | | | | | | | LABORATORIE | | | | | | S | | + + + + + + | INTERPRETAT | There is no detectable | | [facility] | | | ION | MPL mutation within the | | DIAGNOSTIC | | | | known | | | | | | | | LABORATORIE | | | | hotspot | | S | | | | region encompassing | | | | | | amino acids 505-515 (in | | | | | | exon 10), where >95% | | | | | | somatic mutations have | | | | | | been reported. Should | | | | | | this patient be | | | | | | undergoing evaluation | | | | | | for a myeloproliferative | | | | | | disease, this disease | | | | | | is likely not caused by | | | | | | a MPL mutation. | | | | + + + + + + | METHOD(S) | MPL mutation analysis | | [facility] | | | | has been undertaken by | | DIAGNOSTIC | | | | PCR and DNA sequencing. | | | | | | MPL, located on | | LABORATORIE | | | | chromosome 1p34, encodes | | S | | | | the thrombopoietin | | | | | | receptor, and is a bradley | | | | | | growth and survival | | | | | | factor for | | | | | | megakaryocytes. | | | | | | Somatic mutations in MPL | | | | | | have been reported in | | | | | | ~3-15% of patients with | | | | | | myeloproliferative | | | | | | neoplasms, predominantly | | | | | | primary myelofibrosis | | | | | | and essential | | | | | | thrombocythemia. The | | | | | | absence of a detectable | | | | | | MPL mutation in this | | | | | | sample does not rule out | | | | | | a low-level mutation | | | | | | (below the assay's | | | | | | detection limit of ~20%) | | | | | | or the presence of any | | | | | | of the many other | | | | | | heterogeneous mutations | | | | | | that have been described | | | | | | in myeloproliferative | | | | | | neoplasms. | | | | + + + + + + | DISCLAIMER | This test was developed | | [facility] | | | | and its performance | | DIAGNOSTIC | | | | characteristics | | | | | | determined by the [facility] | | LABORATORIE | | | | [facility] | | S | | | [...] | | | | | (CLIA). [facility] | | | | | | Diagnostics | | | | | | Laboratories are fully | | | | | | licensed by the state of | | | | | | [place] under CLIA and | | | | | | are accredited by the | | | | | | [employer] [place] | | | | | | Pathologists (CAP). | | | | | | Mines Inspector: | | | | | | Tayo Singletary, | | | | | | Isabela, Ph.D.Reviewed | | | | | | and electronically | | | | | | signed by ZURDO Harrison | | | | | | MD MENDEZ,[id number] | | | | | | 9:13 PM | | | | + + + + + + + + | Specimen | + + | Blood - Blood | | (substance) | + + + + + + + | Performing | Address | City/State/Zipcode | Phone Number | | Organization | | | | + + + + + | [facility] | [address] | [place] [address] | | | DIAGNOSTIC | [address] | | | | LABORATORIES | | | | + + + + + documented in this encounter Visit Diagnoses + + | Diagnosis | + + | Myelodysplastic syndrome, unspecified (HCC) Myelodysplastic syndrome, unspecified | + + documented in this encounter"
--- OUTSIDE RECORDS SUMMARY | ~2020-03-12 | XMS | Encounter Summary ---
Demographics + + + | Address | [address] | | | [place] [address] | + + + | Home Phone [...] Author + + + | Author | [facility] | + + + | Organization | [facility] | + + + | Address | Unknown | + + + | Phone | Unavailable | + + + Support + + +---------+ + | Name | Relationship | Address | Phone | + + +---------+ + | Claudia Cota | ECON | Unknown | | + + +---------+ + Care Team Providers + +------+ + | Care Automatic Packer Operator Name | Role | Phone | [...] | | | | | (HCC) | [place], [place] | [place], [place] | | | | | Procedures | [address] | [address] | | | | | [place] | Phone: | Phone: | | | | | OFFICE/OUTPT | [phone] | [phone] | | | | | | Fax: | Fax: | | | | | VISIT,VENKATESH,LE | [phone] | [phone] | | | | | VL IV | | | +--------+--------+ + + + + Encounter Details +--------+---------+ + + + | Date | Type | Department | Care Team | Description | +--------+---------+ + + + | 06/13/ | Office | [facility] | Apple Bergeron, | 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 | 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 -We'll call you to adjust your Tacrolimus if necessary. -Increase the requip to 0.5 mg once daily. -Start potassium tabs 20 mEq once daily.Electronically signed by LACY Fung at 2:46 PM PST documented in this encounter Progress Notes Apple Bergeron PA - 06/13/2019 10:10 AM PSTFormatting of this note might be different f rom the original. 06/13/2019 [facility] Physician: Sejal De La Torre DO Local oncologist: Dr. Sequeira Hematologic Malignancy: MDS Conditioning regimen: FluCyTBI Date of transplant: 04/22/2019 Donor: CBU 1: [id number]/02 match, CBU 2: [id number]/02 match Research study: Ruperto "[id number]: A Multicenter, Randomized, Phase III Registration Tr [...] s howing dropping counts. --Jun. Moved to [facility]) -- 10/07/18 showed normal chemistries, Bilirubin 1.4, [...] for D4-D7. 01/14-01/26/2019 admitted for zoster to [facility]. Vidaza held. 02/17/2019- seen at [facility] by Dr. De La Torre, no healthy siblings so cord blood is only option -consented to Rival IQida "[id number]: A Multicenter, Randomized, Phase III Registration Tri nc of Transplantation of NiCord, Ex Vivo Expanded, UCB-derived, Stem and Progenitor Cells, vs. Unmanipulated UCB for Patients With Hematological Malignancies". She was randomized to SOC arm. --02/21-03/01 C3 aza.Tolerated well without complications. --04/15-05/18/2019 admitted to [facility] for planned flu/cy/tbi conditioned UCB on Gamida study (SOC arm). 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 Nona Hopper is a 53 y.o. female with hx of MDS, currently day +52, s/p Flu/cy/TBI co nditioned URD cord on [...] more difficult for her to sl eep. Has been using requip at starting dose of 0.25 mg q HS. She reports diarrhea 2 days ago with abdominal cramping but took imodium with good benefit and today had soft stool. Denies emesis but has some nausea related to pills. Headaches continue intermittently and she thinks they [...] TABLET,EXTENDED RELEASE(PART/CRYST) Take 2 tablets by mouth on ce daily. PROCHLORPERAZINE MALEATE 5 MG TABLET Take 1-2 tablets by mouth every six hours as needed fo r nausea/vomiting. Max dose: 40 mg/day ROPINIROLE 0.25 MG TABLET Take 2 tablets by mouth once daily in the evening. [...] Vitals: BP Readings from Last 1 Encounters: 06/13/19 114/64 Pulse Readings from Last 1 Encounters: 06/13/19 82 Resp Readings from Last 1 Encounters: 06/13/19 16 Wt Readings from Last 1 Encounters: 06/13/19 60.2 kg (132 lb 12.8 oz) Temp Readings from Last 1 Encounters: 06/13/19 36.8 C (98.2 F) (Oral) There is no height or weight on file to calculate BMI. Physical Exam: General:This is a femalein no acute distress.. HEENT:PERRL. Sclerae anicteric. Mucosa pink and moist. [...] 72 hours (or 3 results) Recent Labs 06/13/19 0922 WBC 2.78* HB 9.7* HCT 29.2* PLT 98* NEUTROPERC 56.5 LYMPHPERC 11.5* MONOPERC 22.3* BASOPERC 0.4 EOSPERC 8.6* Chemistries: Last 72 Hours (or 3 results): Recent Labs 06/07/19 0928 06/10/19 1028 06/13/19 0922 NA 133* 134* 134* K 3.4 3.7 2.7* CL 100 100 97 BICARB 23 22 24 BUN 16 9 12 CR 0.95 0.76 0.89 GLU 111* 105* 104* CA 9.2 8.9 8.8 AST 12 16 12 ALT 15 15 16 AP 92 81 78 TBILI 0.5 0.7 0.8 TP 6.4 6.1* 6.4 ALB 3.5 3.3* 3.5 ANIONGAP 10 12* 13* ANIONALBCOR 11 13* 14* Lab Results Component Value Date MG 1.1 06/13/2019 Hematology: Hematologic Malignancy: MDS Conditioning Regimen: FluCyTBI Research study: Ruperto "[id number]: A Multicenter, Randomized, Phase III Registration Trial [...] 10 6 per kg Stem Cell Day: +52 Post-transplant: -Day +21 chimerism ordered per study: [...] platelets trending u pward independent of transfusion. There is no blood product support required at this time. 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 Prophylaxis/Treatment: Prophylaxis with tacrolimus and MMF per Ruperto protocol -Tacrolimus startedD-3 (goal 5-15) -MMF 1 gm PO TID D-3 to D+60 (to stop on 06/21/2019) Acute GvHD Staging: Skin: stage 0 Gut: stage 0 Liver: stage 0 Overall Grade: 0 Ruperto Simpson phase 3 (IRB 27439) Acute GVHD Staging Complete on study visit [...] mL diarrhea/day 2 25-50% BSA 3.1-6 mg/dL 9284-0538 mL diarrhea/day 3 >50% BSA Generalized erythroderma [...] (describe):n Complete Values: BSA%:n Bullae (Y/N):n TBili: 0.8 24H Diarrhea Vol: na Severe abd pain [...] US 01/17/19 involved both right and left UE.Sh e completed 3 months ofanticoagulationwith apixiban, end date 04/14/19. HTN, TERMINAL CARMAN: home regimen, triamterene/HCTZ. -s/p Lisinopril 5 mg [...] -Ramelteon ordered on 05/31, PA denied -Requip 0.5 mg qHS, increased on 06/13 Depression:Stable, continue home SSRI. -Lexapro 20 mg [...] Lab Results Component Value Date CMVQUANTPCR Undetected 06/10/2019 CMVQUANTPCR Undetected 06/07/2019 CMVQUANTPCR Undetected 06/03/2019 CMVQUANTPCR Undetected 05/31/2019 Antifungal: Posaconazole for antifungal prophylaxis through day [...] weekly. Replace per supportive care protocol. -HypoMg 2/2 CNI: start PO mag 1 tab BID on 06/03. Pharmacy is out of this medication kesha pope and will hold with intermittent diarrhea. -HypoK: KDur 20 mEq once daily, started 06/13. Plan: -Mg sulfate 8g IV today. -1L NS bolus IV today -The tacrolimus dose will be adjusted when the tacrolimus trough is available. -Start KDur 20 mEq once daily. -Increase requip to 0.5 mg qHS. -Continue tramadol PRN for headaches. -F/u Genetrails. -Return to clinic 06/[address] De La Torre, sooner prn. [facility] AT [address] Mailcode: [place] [address] documented in this encounter Plan of Treatment Not on filedocumented as of this encounter Results TACROLIMUS, WHOLE BLOOD (06/16/2019 9:42 AM PST) [...] | Test performed by immunoassay using Hyatt Liquid Chlorine Operator i2000. . | [facility] | | Samples [...] | + + + + + | [facility] | [address] | [place] [address] | | | SERVICES, SPECIAL | JASON [...] | | | characteristics determined by the [facility] | | | Molecular [...] | | | Act of 1988. The [facility] Molecular | | | [...] [facility] | [address] | [place] [address] | | | DIAGNOSTIC | [address] [...] + + | [facility] | [address] | [place] [address] | | | SERVICES, CENTER FOR | [...] | | | LABORATORY | | | [place] | | | SERVICES, | | | [...] MDRD equation recommended by the National | [facility] | | Kidney Disease Education [...] LABORATORY | [address] | [place] [address] | | | SERVICES, [place] | | | | | HEALTH [...] | + + + + + | [facility] | [address] | [place] [address] | | | SERVICES, [place] [facility] | | | | | HEALTH [...] LABORATORY | [address] | [place] [address] | | | SERVICES, CENTER FOR | [...]
--- OUTSIDE RECORDS SUMMARY | ~2020-03-12 | XMS | Encounter Summary ---
Demographics + + + | Address | [address] | | | [place] [address] | + + + | Home Phone [...] Team Providers + +------+ + | Care Music Department Chair Name | Role | Phone | + +------+ + | Meredith Sanchez | PCP | | + +------+ + Encounter Details +--------+ + + + + | Date | Type | Department | Care Team | Description | +--------+ + + + + | 12/15/ | Hospital | UNLRELATED BMT | | | | 2019 | Encounter | PROGRAM [address] | | | | | | [address] | | | | | | [place], [place] | | | | | | [address] | | | +--------+ + + + [...]
--- OUTSIDE RECORDS SUMMARY | ~2020-03-12 | XMS | Encounter Summary ---
Demographics + + + | Address | [address] | | | [place] [address] | + + + | Home Phone | | + + + | Preferred Language | Unknown | + + + | Marital Status | Single | + + + | Yazdanism Affiliation | NRP | + + + [...] Team Providers + +------+ + | Care Finger Lift Operator Name | Role | Phone | + +------+ + | Meredith Sanchez | PCP | | + +------+ + Encounter Details +--------+ + + + + | Date | Type | Department | Care Team | Description | +--------+ + + + + | 08/22/ | Discotheque Dancer | [facility] | Sejal De La Torre | | | 2019 | | Clinics at S | N, DO [address] | | | | | [facility] [address] | | | | | [facility] [place] [facility] | [place], [place] | | | | | Health and Healing, | [address] | | | | | Building [address] | [phone] | | | | | [place], [place] | | | | | | [address] | | | | | | [phone] | | | +--------+ + + + [...]
--- OUTSIDE RECORDS SUMMARY | ~2020-03-12 | XMS | Encounter Summary ---
Demographics + + + | Address | [address] | | | [place] [address] | + + + | Home Phone [...] Team Providers + +------+ + | Care Reaming Machine Tender Name | Role | Phone | + +------+ + | Meredith Sanchez | PCP | | + +------+ + Reason for Visit + +--------+ + | Reason | Onset | Comments | | | Date | | + +--------+ + | Needs Paperwork | 03/02/ | | | | 2018 | | + +--------+ + Encounter Details +--------+ + + + + | Date | Type | Department | Care Team | Description | +--------+ + + + + | 03/02/ | Telephone | [facility] | Sejal De La Torre | Needs Paperwork | | 2019 | | Clinics at S | N, DO [address] | | | | | [facility] [address] | | | | | [facility] for | [place], [place] | | | | | Health and Healing, | [address] | | | | | [address] | [phone] | | | | | [place], [place] | | | | | | [address] | | | | | | [phone] | | | +--------+ + + + [...] Telephone Encounter - Rebeca Portillo MA - 03/02/2019 12:36 PM PDTCalled Brittni at [phone] and LVM for her to call back regarding what is needed for this matter. Electronically si gned by Rebeca Portillo MA at 03/02/2019 3:26 PM PDTTelephone Encounter - Rebeca Portillo MA - 0 03/02/2019 12:32 PM PDTPatient Called requesting records from last visit be sent to disabilit y (they are asking for additional information). They are holding her determination until the y get the records they need. She mentioned specifically notes from her last appt (02/17) and they need the treatment plan indicating that transplant is needed. Patient has asked our of garrett to please call Brittni at [phone] to be advised on what paperwork is needed from [facility] to expedite the process. documented in this encounter Plan of Treatment Not on filedocumented as of this encounter Visit Diagnoses Not on filedocumented in this encounter"
--- OUTSIDE RECORDS SUMMARY | ~2020-03-12 | XMS | Encounter Summary ---
Demographics + + + | Address | [address] | | | [place] [address] | + + + | Home Phone | | + + + | Preferred Language | Unknown | + + + | Marital Status | Single | + + + | Mosque Affiliation | NRP | + + + [...] Team Providers + +------+ + | Care Head Orthopedic Team Physician Name | Role | Phone | + +------+ + | Meredith Sanchez | PCP | | + +------+ + Reason for Visit + + + | Reason | Comments | + + + | Bone Marrow Biopsy | | + + + Other (Routine) [...] (myelodyspla | DO [address] | [facility] | | | | | stic | [facility] | [facility] | | | | syndrome) | [address] | Health and | | | | | (HCC) | [place], [place] | Healing, | | | | | Procedures | [address] | [address] | | | | | [place] | Phone: | [place], [place] | | | | | OFFICE/OUTPT | [phone] | [address] | | | | | | Fax: | Phone: | | | | | VISIT,EST,LE | [phone] | [phone] | | | | | VL IV [place] | | Fax: | | | | | EST PATIENT | | [phone] | | | | | LEVEL V | | | +--------+--------+ + + + + Encounter Details +--------+ + + + + | Date | Type | Department | Care Team | Description | +--------+ + + + + | 05/25/ | Hospital | [facility] | A, [address] | | | 2019 | Encounter | Clinics at S | [facility] [place], | | | | | [facility] [address] | [place] [address] | | | | | [facility] | | | | | | Health and Healing, | | | | | | [address] | | | | | | [place], [place] | | | | | | [address] | | | | | | [phone] | | | +--------+ + + + [...] + + + | Blood Pressure | 134/70 | 05/25/2019 11:51 AM | | | | | PST | | + + + + + | Pulse | 84 | 05/25/2019 11:51 AM | | | | | PST | | + + + + + | Temperature | 36.6 C (97.9 F) | 05/25/2019 11:51 AM | | | | | PST | | + + + + + | Respiratory Rate | - | - | | + + + + + | Oxygen Saturation | 96% | 05/25/2019 11:51 AM | | | | | PST | | + + + + + | Inhaled Oxygen | - | - | | | Concentration | | | | + + + + + | Weight | 62.6 kg (138 lb) | 05/25/2019 11:51 AM | | | | | PST | | + + + + + | Height | - | - | | + + + + + | Body Mass Index | 24.73 | 04/15/2019 1:50 PM | | | [...] encounter Progress Notes Marj Reyes RN - 05/25/2019 11:40 AM PST INFUSION NURSING NOTE Allergies: Analy is allergic to cefepime and sulfa (sulfonamide antibiotics). 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 Patient here today for BMBx and possible replacements. Nursing Assessment: Fever/Chills/Infection: No SOB / Cough: No Dizziness/Lightheaded/Fatigue: No Signs/Symptoms Bleeding: No Neuropathy: No Mucositis: No Nausea/Vomiting: Yes Appetite: Good. Diarrhea/Constipation: No PO Fluid Intake: 2L/day. Rash/Skin sores/Edema: No Urinary Issues: No Pain: No Vascular Access: Groshong accessed per protocol. Good blood return noted. Appropriate waste discarded. Meghna portillo drawn and sent. Groshong pulse flushed with 20 mL NS. Per Orders: Infusion Plan: no infusions necessary today. Bone Marrow Biopsy Patient premedicated with 1mg PO Ativan. Bone marrow biopsy completed by Oliver Cornelius NP. P atient observed for 15 minutes post-procedure. Bone Marrow biopsy dressing dry and intact. Post bone marrow biopsy instructions reviewed. For details, see [facility] doc flow sheet and Education tab. Patient was reminded to call clinic with temp > 100.4, chills, s/s of bleeding or uncontrol led N/V/D/C. Patient d/c d ambulatory with friend. Post bone marrow biopsy instructions. 1. Keep your dressing dry for the next 24 hours; no shower or bath until tomorrow. 2. If you notice any signs of infection at the biopsy site (redness, tenderness, drainage) , please call the Triage nurse at ([phone]) or BMT person on-call ([phone]) after hours. 3. If you received medications such as ativan or morphine, or any other sedating medication s, you may not drive for at least 8 hours. Day Florentino, CARRIE - 05/25/2019 11:40 AM PST documented in this e ncounter Plan of Treatment + + +--------+ + + | Name | Type | Priori | Associated Diagnoses | Order Schedule | | | | ty | | | + + +--------+ + + | MORE COMMON | Lab - | Routin | MDS | 05/27/2019 until | | INDIVIDUAL FISH | [facility] | e | (myelodysplastic | discontinued, 1 | | PROBES | Performable | | syndrome) ([facility]) S/P | completed | | | s | | cord blood | | | | | | transplantation | | + + +--------+ + + documented as of this encounter Procedures + +--------+ + + + | Procedure Name | Priori | Date/Time | Associated Diagnosis | Comments | | | ty | | | | + +--------+ + + + | ENGRAFTMENT | Routin | 05/25/2019 | MDS | Results for this | | POST-TRANSPLANT, | e | 1:30 PM | (myelodysplastic | procedure are in the | | BONE MARROW | | PST | syndrome) ([facility]) S/P | results section. | | | | | cord blood | | | | | | transplantation | | | | | | Acute deep vein | | | | | | thrombosis (DVT) of | | | | | | both upper | | | | | | extremities ([facility]) | | | | | | Stem cell transplant | | | | | | candidate | | | | | | Immunocompromised | | | | | | state due to drug | | | | | | therapy | | | | | | Pancytopenia ([facility]) | | + +--------+ + + + | FLT3 ITD, BONE | Routin | 05/25/2019 | MDS | Results for this | | MARROW | e | 1:30 PM | (myelodysplastic | procedure are in the | | | | PST | syndrome) ([facility]) S/P | results section. | | | | | cord blood | | | | | | transplantation | | + +--------+ + + + | COMPREHENSIVE HEME | Routin | 05/25/2019 | MDS | Results for this | | PANEL SEQ, BONE | e | 1:30 PM | (myelodysplastic | procedure are in the | | MARROW | | PST | syndrome) ([facility]) S/P | results section. | | | | | cord blood | | | | | | transplantation | | + +--------+ + + + | GENETRAILS | Routin | 05/25/2019 | MDS | Results for this | | COMPREHENSIVE HEME | e | 1:30 PM | (myelodysplastic | procedure are in the | | PANEL, BONE MARROW | | PST | syndrome) ([facility]) S/P | results section. | | | | | cord blood | | | | | | transplantation | | + +--------+ + + + | MORE COMMON | Routin | 05/25/2019 | MDS | Results for this | | INDIVIDUAL FISH | e | 1:30 PM | (myelodysplastic | procedure are in the | | PROBES | | PST | syndrome) ([facility]) S/P | results section. | | | | | cord blood | | | | | | transplantation | | + +--------+ + + + | CYTOGENETICS BONE | Routin | 05/25/2019 | MDS | Results for this | | MARROW CHROMOSOME | e | 1:30 PM | (myelodysplastic | procedure are in the | | ANALYSIS (W/FISH) | | PST | syndrome) ([facility]) S/P | results section. | | | | | cord blood | | | | | | transplantation | | + +--------+ + + + | LEUKEMIA/LYMPHOMA | Routin | 05/25/2019 | MDS | Results for this | | MARKERS - BONE | e | 12:44 PM | (myelodysplastic | procedure are in the | | MARROW | | PST | syndrome) ([facility]) S/P | results section. | | | | | cord blood | | | | | | transplantation | | + +--------+ + + + | CBC AND AUTO DIFF | Routin | 05/25/2019 | MDS | Results for this | | | e | 12:25 PM | (myelodysplastic | procedure are in the | | | | PST | syndrome) ([facility]) | results section. | + +--------+ + + + | CBC, WITH | Routin | 05/25/2019 | MDS | Results for this | | DIFFERENTIAL | e | 12:25 PM | (myelodysplastic | procedure are in the | | | | PST | syndrome) ([facility]) | results section. | + +--------+ + + + documented in this encounter Results MORE COMMON INDIVIDUAL FISH PROBES (05/25/2019 1:30 PM PST) + +-------+ + + + | Component | Value | Ref Range | Performed | Pathologist | | | | | At | Signature | + +-------+ + + + | CELLS | 200 | | [facility] | | | SCORED | | | DIAGNOSTIC | | | METASYSTEMS | | | | | | CEP X (SG) | | | LABORATORIE | | | / CEP Y | | | S | | | (SO) | | | | | + +-------+ + + + + + | Specimen | + + | Bone marrow - Bone | | marrow structure | | (body structure) | + + + + + + + | Performing | Address | City/State/Zipcode | Phone Number | | Organization | | | | + + + + + | [facility] | [address] | [place] [address] | | | DIAGNOSTIC | [address] | | | | LABORATORIES | | | | + + + + + ENGRAFTMENT POST-TRANSPLANT, BONE MARROW (05/25/2019 1:30 PM PST) + + + + + + | Component | Value | Ref Range | Performed | Pathologist | | | | | At | Signature | + + + + + + | ENGRAFTMENT | No Host Detected | | [facility] | | | POST | | | DIAGNOSTIC | | | TRANSPLANT | | | | | | | | | LABORATORIE | | | | | | S | | + + + + + + | INTERPRETAT | Donor #1 Name/ID: NMDP | | [facility] | | | ION | [id number] #1 | | DIAGNOSTIC | | | | Gender: MaleDonor #2 | | | | | | Name/ID: NMDP | | LABORATORIE | | | | [id number] #2 | | S | | | | Gender: FemaleDate of | | | | | | Transplant: 04/22/2019No | | | | | | Host Cells Detected, | | | | | | 100% Donor #2 (NMDP | | | | | | [id number]); No | | | | | | Detectable Donor #1 | | | | | | (NMDP [id number])PCR | | | | | | based DNA profiling | | | | | | using Short Tandem | | | | | | repeat (STR) markers on | | | | | | this post-transplant | | | | | | specimen shows no | | | | | | detectable host-specific | | | | | | material (compared to | | | | | | the pre-transplant | | | | | | recipient specimen) and | | | | | | 100% engraftment with | | | | | | Donor #2 (and No | | | | | | Detectable Donor #1). | | | | | | This result is | | | | | | consistent with complete | | | | | | or near complete | | | | | | engraftment. The | | | | | | minimal amount of host | | | | | | specific material | | | | | | detectable with this | | | | | | assay is approximately | | | | | | 5% (i.e., the low-level | | | | | | sensitivity of the | | | | | | assay). If you have any | | | | | | questions regarding | | | | | | this report please | | | | | | contact the lab at your | | | | | | convenience. | | | | + + + + + + | METHOD(S) | The DNA Laboratory | | [facility] | | | | received specimens from | | DIAGNOSTIC | | | | the named donor and | | | | | | recipient for the | | LABORATORIE | | | | purpose of | | S | | | | post-transplant | | | | | | engraftment testing. You | | | | | | were seeking | | | | | | clarification of the | | | | | | recipient | | | | | | | | | | | | s engraftment status | | | | | | post bone marrow | | | | | | transplantation. | | | | | | PCR-based DNA profile | | | | | | testing was performed | | | | | | using capillary | | | | | | [...] | | | | | | loci [id number], D21S11, | | | | | | E2F761, CSF1PO, [id number], | | | | | | THO1, K21A437, H20W395, | | | | | | X1V3469, I24G386, vWA, | | | | | | TPOX, D18S51, L8O292, | | | | | | FGA [...] status. | | | | | | Preferential allele | | | | | | amplification is | | | | | [...] | This test was developed | | [facility] | | | | and its performance | | DIAGNOSTIC | | | | characteristics | | | | | | determined by the [facility] | | LABORATORIE | | | | [facility] | | S | | [...] | | | | | (CLIA). [facility] | | | | | | Diagnostics | | | | | | Laboratories are fully | | | | | | licensed by the state of | | | | | | [place] under CLIA and | | | | | | are accredited by the | | | | | | [employer] | | | | | | Pathologists ([employer]). | | | | | | Bilingual Customer Service: | | | | | | Tayo Singletary, | | | | | | Isabela, Ph.D.Reviewed | | | | | | and electronically | | | | | | signed by Beverly | | | | | | MD Marta06/04/2019 | | | | | | 5:15 PM | | | | + + + + + + + + | Specimen | + + | Bone marrow - Bone | | marrow structure | | (body structure) | + + + + + + + | Performing | Address | City/State/Zipcode | Phone Number | | Organization | | | | + + + + + | [facility] | [address] | [place] [address] | | | DIAGNOSTIC | [address] | | | | LABORATORIES | | | | + + + + + FLT3 ITD, BONE MARROW (05/25/2019 1:30 PM PST) + + + + + + | Component | Value | Ref Range | Performed | Pathologist | | | | | At | Signature | + + + + + + | FLT3 ITD | Undetected. | | [facility] | | | | | | DIAGNOSTIC [...] | | | | interpretation of all | | | | | | 220 genes analyzed in | | | | | | this case will be | | | | | | reported in a separate | | | | | | report upon completion | | | | | | of the remaining tests. | | | | + + + + + + | METHOD(S) | For the ITD assay | | [facility] | | | | performed in our | | DIAGNOSTIC | | | | laboratory, blood or | | | | | | bone marrow-derived DNA | | LABORATORIE | | | | is PCR amplified with | | S | | | | FLT3 juxtamembrane | | | | | | domain (exon 14) | | | | | | primers. The FLT3-ITD | | | | | | PCR [...] + + + | REFERENCES | 1. Latrice Serna, Amos | | [facility] | | | | [...] Oncol. | | | | | | 2011;29:475-486.2. | | | | | | Chari [...] Blood | | | | | | 2007;111:1266-5444. | | | | + + + + + + | DISCLAIMER | This test was developed | | [facility] | | | | and its performance | | DIAGNOSTIC | | | | characteristics | | | | | | determined by the [facility] | | LABORATORIE | | | | [facility] | | S | | [...] | | | | | (CLIA). [facility] | | | | | | Diagnostics | | | | | | Laboratories are fully | | | | | | licensed by the state of | | | | | | [place] under CLIA and | | | | | | are accredited by the | | | | | | [employer] | | | | | | Pathologists ([employer]). | | | | | | Bilingual Customer Service: | | | | | | Tayo Singletary, | | | | | | Isabela, Ph.D. | | | | + + + + + + + + | Specimen | + + | Bone marrow - Bone | | marrow structure | | (body structure) | + + + + + + + | Performing | Address | City/State/Zipcode | Phone Number | | Organization | | | | + + + + + | [facility] | [address] | [place] [address] | | | DIAGNOSTIC | [address] | | | | LABORATORIES | | | | + + + + + COMPREHENSIVE HEME PANEL SEQ, BONE MARROW (05/25/2019 1:30 PM PST) + + + + + + | Component | Value | Ref Range | Performed | Pathologist | | | | | At | Signature | + + + + + + | COMPREHENSI | See Interpretation. 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 | | | | | | The previously reported | | | | | | tier 3 variants (of | | | | | | unknown relevance) in | | | | | | FAT1, FAT4, SETBP1 and | | | | | | KDM6A, each possibly | | | | | | representing germline | | | | | | variant of host origin, | | | | | | are undetectable in the | | | | | | current sample (limit of | | | | | | detection ~0.5%). The | | | | | | newly reported tier 3 | | | | | | VUS(s) in ID3 (2 | | | | | | variants) and MAML1, | | | | | | each likely representing | | | | | | germline variant of | | | | | | donor origin, are | | | | | | detected at ~50% | | | | | | VAF.GeneAlteration | | | | | | Classification VAF* | | | | | | Bone Marrow | | | | | | Ndnnajxe77/27/2019 Bone | | | | | | Marrow Aspirate03/10/2019 | | | | | | Bone Marrow | | | | | | Aspirate01/17/2019 | | | | | | Blood12/02/2018 | | | | | | FAT4p.K5650W Tier III | | | | | | (possibly host germline) | | | | | | Undetected 52% 49% 53% | | | | | | KDM6Ap.R165Q Tier III | | | | | | (possibly host germline) | | | | | | Undetected 51% 47% 50% | | | | | | NAMGN0n.P756L Tier III | | | | | | (possibly host germline) | | | | | | Undetected 50% 48% 50% | | | | | | FAT1p.T2657S Tier III | | | | | | (possibly host germline) | | | | | | Undetected 48% 51% 46% | | | | | | ID3p.V67M Tier III | | | | | | (likely donor germline) | | | | | | 50% Undetected | | | | | | Undetected Undetected | | | | | | ID3p.D113N Tier III | | | | | | (likely donor germline) | | | | | | 50% Undetected | | | | | | Undetected Undetected | | | | | | MAML1p.G124S Tier III | | | | | | (likely donor germline) | | | | | | 53% Undetected | | | | | | Undetected Undetected | | | | | | *VAF: variant allele | | | | | | frequency | | | | | | AR: allele ratio- Locus | | | | | | not evaluated Case | | | | | | reviewed by:Giovanny Romero, | | | | | | MD, FACMG/Clinical | | | | | | Molecular | | | | | | GeneticistRichard Press, | | | | | | MD, PhD/Molecular | | | | | | Genetic | | | | | | PathologistAdditional | | | | | | Details on Alterations | | | | | | Reported in This | | | | | | Patient:Gene Transcript | | | | | | cDNA Tia Genome Chrom | | | | | | Start End Ref Tia FAT1 | | | | | | TDJV31526.1 c.3929C>T | | | | | | hg19 chr4 [id number] | | | | | | [id number] G A FAT4 | | | | | | INWU6311.3 c.00352W>A | | | | | | hg19 chr4 [id number] | | | | | | [id number] G A SETBP1 | | | | | | STYQ89397.2 c.2267C>T | | | | | | hg19 chr18 73618382 | | | | | | [id number] C T KDM6A | | | | | | DCAQ37215.1 c.494G>A | | | | | | hg19 chrX 69930966 | | | | | | 66876918 G A ID3 | | | | | | ENPF316.1 c.337G>A hg19 | | | | | | chr1 [id number] C | | | | | | T ID3 HEHI919.1 | | | | | | c.199G>A hg19 chr1 | | | | | | 74825408 [id number] C T | | | | | | MAML1 YZTN48352.1 | | | | | | c.370G>A hg19 chr5 | | | | | | [id number] [id number] G A | | | | | | Test Details:This test | | | | | | is designed to detect | | | | [...] | | | | | GSKIP HAX1 CSXM0J1E | | | | | | HNRNPK [...] PRKCB | | | | | | GJOA22Q PRPF8 PRPS1 | | | | | [...] | | | | | | SYNE1 TVK9ES6 TCF3 TCF4 | | | | | | TERC TERT TET2 TNFAIP3 | | | | | | VIBBYX12 TP53 TRAF3 | | | | | | U2AF1 U2AF2 UBR5 USH2A | | | | | | VAV1 WAS WHSC1 WT1 XPO1 | | | | | | ZBTB7A ZRSR2 Low Limit | | | | | | of Detection The low | | | | | | limit of detection for | | | | | | this assay is 2% VAF at | | | | | | a minimal 900 read depth | | | | | | (5% at 700 read depth | | | | | | and 7% at 500 read | | | | | | depth). This case has an | | | | | | average read depth of | | | | | | 3261. However, a small | | | | | | fraction (100 minus the | | | | | | percentage in the | | | | | | parenthesis) of the | | | | | | targeted regions of the | | | | | | following genes: ASXL1 | | | | | | (99%), PCLO (99%), SPEN | | | | | | (99%), NOTCH2 (99%), | | | | | | JAK1 (99%), ARID1B | | | | | | (99%), DTX1 (99%), RAD21 | | | | | | (98%), SETBP1 (98%), | | | | | | STAT5B (94%), BRD4 | | | | | | (92%), PMS2 (89%), CD79A | | | | | | (89%) have a higher low | | | | | | limit of detection of | | | | | | 10-15% VAF (if less than | | | | | | 250 read depth), or | | | | | | could harbor mutations | | | | | | that were missed by this | | | | | | analysis if the read | | | | | | depth is below 100. | | | | | | Further information on | | | | | | these low-coverage | | | | | | regions is available | | | | | | upon request. Low read | | | | | | counts may reflect | | | | | | changes in gene copy | | | | | | number or | | | | | [...] platform | | | | | | (NextCeQurq 500 or 550). | | | | [...] ROUSE, et al; 2017, J | | [facility] | | | | Mol Diagn. | [...] The | | | | | | 2015 revision to the WHO | | | | | | classification: Blood. | | | | | | 2016; 127(20):0978-154. | | | | | | 7. [...] (CKB): | | | | | | [email or web address]/10. | | | | | | CIViC: | | | | | | [email or web address] | | | | + + + + + + | DISCLAIMER | This test was developed | | [facility] | | | | and its performance | | DIAGNOSTIC | | | | characteristics | | | | | | determined by the [facility] | | LABORATORIE | | | | [facility] | | S | | [...] | | | | | (CLIA). [facility] | | | | | | Diagnostics | | | | | | Laboratories are fully | | | | | | licensed by the state of | | | | | | [place] under CLIA and | | | | | | are accredited by the | | | | | | [employer] | | | | | | Pathologists ([employer]). | | | | | | Bilingual Customer Service: | | | | | | Tayo Singletary, | | | | | | Isabela, Ph.D.Reviewed | | | | | | and electronically | | | | | | signed by ZURDO Harrison | | | | | | MD MENDEZ,PhD06/13/2019 | | | | | | 3:48 PM | | | | + + + + + + + + | Specimen | + + | Bone marrow - Bone | | marrow structure | | (body structure) | + + + + + + + | Performing | Address | City/State/Zipcode | Phone Number | | Organization | | | | + + + + + | [facility] | [phone] | [place] [address] | | | DIAGNOSTIC | [address] | | | | LABORATORIES | | | | + + + + + CYTOGENETICS BONE MARROW CHROMOSOME ANALYSIS (W/FISH) (05/25/2019 1:30 PM PST) + + + + + + | Component | Value | Ref Range | Performed | Pathologist | | | | | At | Signature | + + + + + + | Chromosome | Normal | | [facility] | | | Results | | | DIAGNOSTIC | | | | | | | | | | | | LABORATORIE | | | | | | S | | + + + + + + | Impressions | All female cells by FISH | | [facility] | | | and | and | | DIAGNOSTIC | | | Recommendat | chromosomesKARYOTYPE: | | | | | ions | 46,XX[20]All twenty | | LABORATORIE | | | | metaphase cells examined | | S | | | | were normal female.FISH | | | | | | was performed with | | | | | | probes for chromosomes X | | | | | | and Y, as listed below. | | | | | | All cells had two X | | | | | | signals, a normal female | | | | | | result.Thank you very | | | | | [...] | | | | | for Referral: MDS | | | | |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| | syndrome) S/P cord blood | | | | | | transplantation The | | | | | | clinical interpretation | | | | | | was made by the clinical | | | | | | gis analyst. | | | | + + + + + + | Number of | 3 | | [facility] | | | Cells [...] + | Banding | GTW | | [facility] | | | Method: | | | DIAGNOSTIC | | | | | | | | | | | | LABORATORIE | | | | | | S | | + + + + + + | DISCLAIMER | This test was developed | | [facility] | | | | and its performance | | DIAGNOSTIC | | | | characteristics | | | | | | determined by the [facility] | | LABORATORIE | | [...] | | | | | Improvement Act 1987 | | | | | | (CLIA). [facility] | | | | | | Diagnostics | | | | | | Laboratories are fully | | | | | | licensed by the state of | | | | | | [place] under CLIA and | | | | | | are accredited by the | | | | | | [employer] | | | | | | Pathologists ([employer]). | | | | | | Bilingual Customer Service: | | | | | | Tayo Singletary, | | | | | | M.D., | | | | | | Ph.D.Electronically | | | | | | reviewed and signed | | | | | | by:Chuy Acuna, PhD, | | | | | | FACMGClinical | | | | | | Adaptive Physical Education Specialist Clinical | | | | | | Molecular | | | | | | Idwhnhzlwc22/4/2019 at | | | | | | 11:32 Jonathan and | | | | | | electronically signed by | | | | | | CONG CINTRON, | | | | | | ,FACMG06/01/2019 4:48 | | | | | | PM | | | | + + + + + + | Cytogenetic | Normal | | [facility] | | | s Bone | | [...] + + + + | [facility] | [address] | [place] [address] | | | DIAGNOSTIC | [address] | | | | LABORATORIES | | | | + + + + + LEUKEMIA/LYMPHOMA MARKERS - BONE MARROW (05/25/2019 12:44 PM PST) + + + + + [...] biopsy and peripheral | | OF | Sejal Nelson | | | blood: - Hypocellular | | PATHOLOGY | MD Burt on | | | marrow (25%) with | | | 06/02/2019 at | | | trilineage hematopoiesis | | | 11:02 AM | | | - No increase in | | | | | | blasts, <2%. - | | | | | | PancytopeniaComment: | | | | | | Correlation with pending | | | | | | cytogenetics/molecular | | | | | | studies is suggested. | | | | | | Case seen by:Chapito | | | | | | DO Bhavin | | | | | | | | | | | | Pathology | | | | | | Arsalan Chavez | | | | | | | | | | | | | | | | | PathologistPathology, | | | | | | [facility] | | | | | | [facility] | | | | | | electronic signature | | | | | | indicates that I have | | | | | | personally reviewed all | | | | | | diagnostic slides, the | | | | | | gross and/or microscopic | | | | | | portion of this report | | | | | | and formulated the final | | | | | | diagnosis.CLINICAL | | | | | | HISTORY: The patient is | | | | | | a 53 year old woman with | | | | | | 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 | | | | | | status post transplant | | | | | | (04/22/2019)CBC:Resulted | | | | | | Date and Time: | | | | | | 05/25/2019 1243 PST | | | | | | | | | | | | | | | | | | Component Result | | | | | | Reference Range WHITE | | | | | | CELL COUNT 1.90 | | | | | | 3.50-10.80 K/cu mm RED | | | | | | CELL COUNT 3.03 | | | | | | 4.00-5.20 M/cu mm | | | | | | HEMOGLOBIN 8.4 | | | | | | 12.0-16.0 g/dL | | | | | | HEMATOCRIT 24.9 | | | | | | 36.0-46.0 % MCV 82.2 | | | | | | 80.0-100.0 fL MCHC 33.7 | | | | | | 32.0-36.0 g/dL RDW SD | | | | | | 42.1 35.1-46.3 fL | | | | | | PLATELET COUNT 17 | | | | | | 150-400 K/cu mm MPV | | | | | | 9.7-12.3 fL NRBC% 0.0 | | | | | | 0.0-0.3 % NRBC# 0.00 | | | | | | 0.00-0.02 K/cu mm | | | | | | PERIPHERAL BLOOD | | | | | | DIFFERENTIAL | | | | | | | | | | | | Component | | | | | | Result Reference | | | | | | Range NEUTROPHIL % | | | | | | 35.4 50.0-70.0 % | | | | | | LYMPHOCYTE % 18.4 | | | | | | 18.0-42.0 % MONOCYTE % | | | | | | 34.7 3.5-9.0 % EOS % | | | | | | 8.9 1.0-3.0 % BASO % | | | | | | 0.5 0.0-2.0 % IG% | | | | | | 2.1 0.0-1.0 % | | | | | | NEUTROPHIL # 0.67 | | | | | | 1.80-7.70 K/cu mm | | | | | | LYMPHOCYTE # 0.35 | | | | | | 1.00-4.80 K/cu mm | | | | | | MONOCYTE # 0.66 | | | | | | 0.10-0.90 K/cu mm EOS # | | | | | | 0.17 0.00-0.50 K/cu mm | | | | | | BASO # 0.01 0.00-0.10 | | | | | | K/cu mm IG# 0.04 | | | | | | 0.00-0.10 K/cu mm | | | | | | PERIPHERAL BLOOD | | | | | | MORPHOLOGY:WBC: Rare | | | | | | morphologically atypical | | | | | | neutrophils. No | | | | | | circulating blasts. | | | | | | Lymphocytes are within a | | | | | | reactive morphologic | | | | | | spectrum. Monocytes are | | | | | | morphologically | | | | | | unremarkable. RBC: | | | | | | Unremarkable Platelets: | | | | | | Predominantly normal | | | | | | morphology BONE MARROW | | | | | | ASPIRATE SMEARS:Quality: | | | | | | Hypocellular particles, | | | | | | hemodilute Blasts: Not | | | | | | increaesed Myeloids: | | | | | | Full maturation, | | | | | | occasional | | | | | | morphologically atypical | | | | | | forms (abnormal | | | | | | cytoplasmic granulation | | | | | | and/or abnormal nuclear | | | | | | features) Erythroids: | | | | | | Decreased, full | | | | | | maturation | | | | | | Megakaryocytes: Markedly | | | | | | decreased Lymphocytes: | | | | | | No atypical lymphocytes | | | | | | population Plasma | | | | | | cells: Not increaed BONE | | | | | | MARROW DIFFERENTIAL: | | | | | | Preparation: Bone marrow | | | | | | aspirate Myeloids: 79% | | | | | | Erythroids: 13% Blasts: | | | | | | 1% Lymphocytes: 7% M:E | | | | | | Ratio: 6:1 Total cells | | | | | | counted: 100 BONE MARROW | | | | | | BIOPSY/CLOT | | | | | | SECTION:Quality: | | | | | | Adequate. Clot section | | | | | | lacks marrow particles | | | | | | Cellularity: 25% | | | | | | Myeloids: Left shifted, | | | | | | full maturation | | | | | | Erythroids: | | | | | | Unremarkable. | | | | | | Megakaryocytes: Present, | | | | | | few atypical forms but | | | | | | no overt dysplasia | | | | | | Infiltrate: No atypical | | | | | | clusters or sheets of | | | | | | blasts FLOW CYTOMETRIC | | | | | | ANALYSIS: % of | | | | | | total WBC (CD45+)Myeloid | | | | | | Blasts <2 Monocytes 17 | | | | | | Lymphocytes 15 | | | | | | % of | | | | | | LymphocytesB-cells <1 | | | | | | T-cells 34 NK-cells 50 | | | | | | RatioKappa/Lambda NA | | | | | | CD4/CD8 6:1 Summary: | | | | | | Blasts are not | | | | | | increased. No atypical | | | | | | lymphoid population | | | | | | Antibodies TestedCD4 CD5 | | | | | | CD8 CD10 CD13 CD14 CD16 | | | | | | CD19 CD33 CD34 CD45 | | | | | | CD56 CD64 CD117 sKappa | | | | | | sLambda HLA-DR | | | | | | IMMUNOHISTOCHEMICAL | | | | | | STAINS: IHC for CD34 | | | | | | and CD117 are performed | | | | | | on marow biopsy. There | | | | | | are less than 5% blasts. | | | | | | CD117 stains | | | | | | unremarkable mast cells. | | | | | | CYTOGENETIC AND FISH | | | | | | STUDIES: Performed, see | | | | | | separate report. | | | | | | MOLECULAR STUDIES: | | | | | | Performed, see separate | | | | | | report. | | | | + + [...] smear | | | | | | was prepared. A. 1ml | | | | | | EDTA, 2ml NaHepB: Bone | | | | | | Marrow Clot - 2.2 x 0.7 | | | | | | x 0.3 cmC. Bone Marrow | | | | | | Biopsy - 1.2 L x 0.5 D | | | | | | cm, includes associated | | | | | | blood clot | | | | + + + [...] | + + + + + | [facility] DEPARTMENT OF | [address] | [place] [address] | | | PATHOLOGY | [address] | | | + + + + + | [facility] LABORATORY | [address] | [place] [address] | | | SERVICES, [facility] | | [facility] + [facility] | | | | + + + + + CBC AND AUTO DIFF (05/25/2019 12:25 PM PST) + + + + + + | Component | Value | Ref Range | Performed | Pathologist | | | | | At | Signature | + + + + + + | WHITE CELL | 1.90 (L) | 3.50 - 10.80 | [facility] [...] + + + + | HEMOGLOBIN | 8.4 (L) | 12.0 - 16.0 | [facility] | | | | | g/dL | LABORATORY | | | | | | SERVICES, | | | | | | [facility] + | | | | | | [facility] | | + + + + + + | HEMATOCRIT | 24.9 (L) | 36.0 - 46.0 % | [facility] | | | | | | LABORATORY | | | | | | SERVICES, | | | | | | [facility] + | | | | | | [facility] | | + + + + + + | MCV | 82.2 | 80.0 - 100.0 fL | [facility] | | | | | | LABORATORY | | | | | | SERVICES, | | | | | | [facility] + | | | | | | [facility] | | + + + + + + | MCHC | 33.7 | 32.0 - 36.0 | [facility] | | | | | g/dL | LABORATORY | | | | | | SERVICES, | | | | | | [facility] + | | | | | | [facility] | | + + + + + + | RDW SD | 42.1 | 35.1 - 46.3 fL | [facility] | | | | | | LABORATORY | | | | | | SERVICES, | | | | | | [facility] + | | | | | | [facility] | | + + + + + + | PLATELET | 17 (L) | 150 - 400 K/cu | [...] + + + + | NEUTROPHIL | 35.4 (L) | 50.0 - 70.0 % | [facility] | | | % | | | LABORATORY | | | | | | SERVICES, | | | | | | [facility] + | | | | | | [facility] | | + + + + + + | LYMPHOCYTE | 18.4 | 18.0 - 42.0 % | [facility] | | | % | | | LABORATORY | | | | | | SERVICES, | | | | | | [facility] + | | | | | | [facility] | | + + + + + + | MONOCYTE % | 34.7 (H) | 3.5 - 9.0 % | [facility] | | | | | | LABORATORY | | | | | | SERVICES, | | | | | | [facility] + | | | | | | [facility] | | + + + + + + | EOS % | 8.9 (H) | 1.0 - 3.0 % | [...] + + + + | IG% | 2.1 (H) | 0.0 - 1.0 % | [facility] | | | | | | LABORATORY | | | | | | SERVICES, | | | | | | [facility] + | | | | | | [facility] | | + + + + + + | NEUTROPHIL | 0.67 (L) | 1.80 - 7.70 | [facility] | | | # | | K/cu mm | LABORATORY | | | | | | SERVICES, | | | | | | [facility] + | | | | | | [facility] | | + + + + + + | NEUTROPHIL | 0.67 (L)Comment: | 1.80 - 7.70 | [facility] [...] + + + + | LYMPHOCYTE | 0.35 (L) | 1.00 - 4.80 | [facility] | | | # | | K/cu mm | LABORATORY | | | | | | SERVICES, | | | | | | [facility] + | | | | | | [facility] | | + + + + + + | MONOCYTE # | 0.66 | 0.10 - 0.90 | [facility] | | | | | K/cu mm | LABORATORY | | | | | | SERVICES, | | | | | | [facility] + | | | | | | [facility] | | + + + + + + | EOS # | 0.17 | 0.00 - 0.50 | [facility] | [...] | included in the neutrophil count. | [facility] + | | | [facility] | + + + + + + + + | Performing | Address | City/State/Zipcode | Phone Number | | Organization | | | | + + + + + | [facility] | [address] | [place] [address] | | | [facility] | [facility] | | | | + + + + + documented in this encounter Visit Diagnoses + + | Diagnosis | + + | MDS (myelodysplastic syndrome) (HCC) - Primary Myelodysplastic syndrome, unspecified | + + | S/P cord blood transplantation Other specified organ or tissue replaced by transplant | + + | Acute deep vein thrombosis (DVT) of both upper extremities (HCC) | + + | Stem cell transplant candidate | + + | Immunocompromised state due to drug therapy | + + | Pancytopenia (HCC) Other pancytopenia | + + documented in this encounter Administered Medications + +--------+ +------+------+------+ | Medication Order | MAR | Action | Dose | Rate | Site | | | Action | Date | | | | + +--------+ +------+------+------+ | LORazepam (ATIVAN) tablet 1 mg | Given | 05/25/20 | 1 mg | | | | 1 mg, oral, ONCE, 1 dose, Wed | | 19 12:55 | | | | | 05/25/19 at 1300 | | PM PST | | | | + +--------+ +------+------+------+ +---+---+ | | | +---+---+ documented in this encounter"
--- OUTSIDE RECORDS SUMMARY | ~2020-03-12 | XMS | Encounter Summary ---
Demographics + + + | Address | [address] | | | [place] [address] | + + + | Home Phone [...] Team Providers + +------+ + | Care Web Editor Name | Role | Phone | + +------+ + | Meredith Sanchez | PCP | | + +------+ + Encounter Details +--------+ + + + + | Date | Type | Department | Care Team | Description | +--------+ + + + + | 05/18/ | Pharmacy | Outpatient Retail | | | | 2019 | Visit | [facility] | | | | | | [address] | | | | | | [place], [place] | | | | | | [address] | | | | | | [phone] | | | +--------+ + + + [...]
--- OUTSIDE RECORDS SUMMARY | ~2020-03-12 | XMS | Encounter Summary ---
Demographics + + + | Address | [address] | | | [place] [address] | + + + | Home Phone [...] Team Providers + +------+ + | Care Machine Tank Operator Name | Role | Phone | + +------+ + | Meredith Sanchez | PCP | | + +------+ + Encounter Details +--------+ + + + + | Date | Type | Department | Care Team | Description | +--------+ + + + + | 05/11/ | Pharmacy | Outpatient Retail | | | | 2019 | Visit | [facility] | | | | | | [address] | | | | | | [address] [place], [place] | | | | | | [address] | | | | | | [phone] | | | +--------+ + + + [...]
--- OUTSIDE RECORDS SUMMARY | ~2020-03-12 | XMS | Encounter Summary ---
Demographics + + + | Address | [address] | | | [place] [address] | + + + | Home Phone | | + + + | Preferred Language | Unknown | + + + | Marital Status | Single | + + + | Cheondoism Affiliation | NRP | + + + [...] Team Providers + +------+ + | Care Customer Liaison Name | Role | Phone | + [...] | | | | | (HCC) | [place] | | | | | Procedures | [address] | | | | | | [place] | Phone: | Phone: | | | | | OFFICE/OUTPT | [phone] | [phone] | | | | | | Fax: | Fax: | | | | | VISIT,VENKATESHLE | [phone] | | | | | | VL IV | | | +--------+--------+ + + + + Encounter Details +--------+---------+ + + + | Date | Type | Department | Care Team | Description | +--------+---------+ + + + | 07/01/ | Office | [facility] | Sejal De La Torre | S/P cord blood | | 2020 | Visit | Clinics at S | N, DO [address] | transplantation | | | | [facility] [address] | (Primary Dx) | | | | [place] [place] [facility] | [place], [place] | | | | | [facility], | [address] | | | | | Building [address] | [phone] | | | | | [place], [place] | | | | | | [address] | | | | | | [phone] | | | +--------+---------+ + + + [...] + + + | Blood Pressure | 105/67 | 07/01/2019 12:39 PM | | | | | PST | | + + + + + | Pulse | 95 | 07/01/2019 12:39 PM | | | | | PST | | + + + + + | Temperature | 36.7 C (98.1 F) | 07/01/2019 12:39 PM | | | | | PST | | + + + + + | Respiratory Rate | - | - | | + + + + + | Oxygen Saturation | 95% | 07/01/2019 12:39 PM | | | | | PST | | + + + + + | Inhaled Oxygen | - | - | | | Concentration | | | | + + + + + | Weight | 56.5 kg (124 lb 9.6 | 07/01/2019 12:39 PM | | | | oz) | PST | | + + + + + | Height | - | - | | + + + + + | Body Mass Index | 22.07 | 06/21/2019 9:34 AM | | | [...] Instructions Patient Instructions Sean Barnard RN - 07/01/2019 12:30 PM Sarah, It was good to see you today. Your magnesium level was a little low and Dr. De La Torre would l zaid you to get IV fluids. We will need to keep your infusion appointment for tomorrow. We will see you back as scheduled next week. Thanks, Sean Barnard RN is Dr. De La Torre Nurse Coordinator. My direct line is [phone] or you may contact me through [employer]. Please note that I am off on Mondays. If you develop any symptoms or have any urgent medical questions, please call the Triage Nu rse at [phone] or [phone] (Thursday - Thursday 8:30-4:30). During after jeni rs, please call [phone] and ask to have the BMT Person Battery Starter paged. If you have any questions about appointments or need to call to make a follow up appointmen t, please call the front counter attendant at [phone]. FOR PRESCRIPTIONS: please allow 48-72 hours for prescription refills. Please make sure no r efills remain prior to calling. If refills remain, please call your pharmacy for a refill. documented in this encounter Progress Notes Sejal De La Torre DO - 07/01/2019 12:30 PM PST [facility] Physician: Sejal De La Torre DO Local oncologist: Dr. Sequeira Hematologic Malignancy: MDS Conditioning regimen: FluCyTBI Date of transplant: 04/22/2019 Donor: CBU 1: [id number]/02 match, CBU 2: [id number]/02 match Research study: Kyle "[id number]: A Multicenter, Randomized, Phase III Registration Tr ia of Transplantation of NiCord, Ex Vivo Expanded, UCB-derived, Stem and Progenitor Cells , vs. Unmanipulated UCB for Patients With Hematological Malignancies". She was randomized to SOC arm. 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 --December 2018- developed fevers up to 104. Work up neg for infection, but noted to have CBC s howing dropping counts. --Jun. Moved to [place] ([facility]) -- 10/07/18 showed normal chemistries, [...] for D4-D7. 01/14-01/26/2019 admitted for zoster to [facility]. Vidaza held. 02/17/2019- seen at [facility] by Dr. De La Torre, no healthy siblings so cord blood is only option -consented to kyle "[id number]: A Multicenter, Randomized, Phase III Registration Tri in of Transplantation of NiCord, Ex Vivo Expanded, UCB-derived, Stem and Progenitor Cells, vs. Unmanipulated UCB for Patients With Hematological Malignancies". She was randomized to SOC arm. --02/21-03/01 C3 aza.Tolerated well without complications. --04/15-05/18/2019 admitted to [facility] for planned flu/cy/tbi conditioned UCB on Gamida study (SOC arm). 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 Nona Hopper is a 53 y.o. female with hx of MDS, currently day +70, s/p Flu/cy/TBI co nditioned URD cord on gamida trial -on SOC arm. Interval History: Nona comes to clinic today for post-transplant follow up. D+70. Overall , she is feeling Ok. She reports persistent nausea and poor appetite. She was unable to star t the beclomethosone due to insurance issues. She has a rash on her face chest and back (BSA 30%). She is using steroid cream on this BID. She remains fatigued. She continues to have i ntermittent loose stools, using imodium which helps-not using more than 4 imodium per day. R eports no more than 2-3 loose stools per day. No fever/chills. Review of Systems: General: Denies fevers, chills, weight loss or sweats. +fatigue-stable ENT: +headaches occur twice daily after tacrolimus- stable Denies changes in vision or doub le vision. Denies hearing loss, nosebleeds, nasal congestion, difficulty swallowing, hoarsen ess or sore throat. Respiratory: +shortness of breath with exertion Denies coughing up blood, excessive sputum, cough, chest discomfort or wheezing. Cardiovascular: No chest pain, lightheadedness,shortness of breath. Gastrointestinal: Denies indigestion, vomiting, +nausea/abd cramping prior to BMs, occasion al loose stools 1-2/day that resolve with imodium constipation, bloody stools or dark tarry stools. Musculoskeletal: No joint pain, swelling, stiffness, back pain, arthritis, muscle aches or muscle cramps. Skin: Denies rash. Psychological: +insomnia/restless leg improved with Requip. No abnormal anxiety, depression . Remainder of ROS is otherwise negative. Current Medication List Name Sig BECLOMETHASONE 1 MG/ML ORAL SUSPENSION (OUTPATIENT) Take 1 mL by mouth four times daily. In dications: treatment to prevent reaction after bone marrow transplant DAPSONE 100 MG TABLET Take 1 tablet [...] daily as needed. Indications: bone pain . ONDANSETRON HCL 8 MG TABLET Take 1 [...] the evening. TACROLIMUS 0.5 MG CAPSULE Effective 06/24/2019: Take 0.5 mg by mouth every morning and 0.5 mg every evening. Combine 0.5mg and 1mg capsules to make your current dose. HOLD on days of clinic and bring with you to take AFTER your labs are drawn. Indications: prevention of GVH D TACROLIMUS 1 MG CAPSULE Effective 06/24/2019: Take 0.5 mg by mouth every morning and 0.5 m g every evening. Combine 0.5mg and 1mg capsules to make your current dose. HOLD on days of c linic and bring with you to take AFTER your labs are drawn. Indications: prevention of graft versus host disease TRAMADOL [...] Vitals: BP Readings from Last 1 Encounters: 07/02/19 94/69 Pulse Readings from Last 1 Encounters: 07/02/19 95 Resp Readings from Last 1 Encounters: 07/02/19 12 Wt Readings from Last 1 Encounters: 07/02/19 56.2 kg (124 lb) Temp Readings from Last 1 Encounters: 07/02/19 37.1 C (98.7 F) (Oral) Body mass index is 22.07 kg/m. Physical Exam: General:This is a femalein no acute distress. Sitting up in chair with pulmonary care nurse at bedside. HEENT:PERRL. Sclerae anicteric. Mucosa pink and moist. [...] diff: Last 72 hours (or 3 results) Chemistries: Last 72 Hours (or 3 results): Recent Labs 06/24/19 0716 06/28/19 1500 07/01/19 1149 NA 134* 135* 137 K 3.6 3.4 3.7 CL 100 102 102 BICARB 20* 19* 17* BUN 11 15 13 CR 0.92 1.07 0.96 GLU 127* 129* 112* CA 9.3 9.1 8.8 AST 14 13 8 ALT 16 14 12 AP 81 88 94 TBILI 1.2 0.9 1.2 TP 6.6 6.5 6.4 ALB 3.9 3.5 3.5 ANIONGAP 14* 14* 18* ANIONALBCOR 14* 15* 19* Lab Results Component Value Date MG 1.2 07/01/2019 Hematology: Hematologic Malignancy: MDS Conditioning Regimen: FluCyTBI double cord Research study: Kyle "[id number]: A Multicenter, Randomized, Phase III Registration Trial [...] 10 6 per kg Stem Cell Day: +70 Post-transplant: -Day +21 chimerism ordered per study: 100% donor #2 CD33, CD56, CD3 and CD19 insufficient for analysis -BM Bx to be completed on day +30, day +100, 6 months, and 1 year post-transplant -Day +30 BMBX completed on 05/25 -Results: Hypocellular marrow (25%) with trilineage hematopoiesis. No increase in blast s, <2%. -Cytogenetics/FISH: normal female -VNTR: 100% donor #2 (female) -Genetrails: no prior mutations CBC reviewed and reveals stable anemia and thrombocytopenia. Improved eosinophilia. 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 Cont steroid cream. Also, given nausea/weight loss - continue to try to obtain the beclomethosone QID. Prophylaxis/Treatment: Prophylaxis with tacrolimus and MMF per Kyle protocol -Tacrolimus startedD-3 (goal 5-15) -MMF 1 gm PO TID D-3 to D+60 (stop on 06/21/2019) Acute GvHD Staging: Skin: stage 1 Gut: stage 0 Liver: stage 0 Overall Grade: 1 Kyle Simpson phase 3 (IRB 45367) Acute GVHD Staging Complete on study visit [...] mL diarrhea/day 2 25-50% BSA 3.1-6 mg/dL 0538-7831 mL diarrhea/day 3 >50% BSA Generalized erythroderma [...] abd pain (Y/N):n Ileus (Y/N):n Assign Stage: 2 0 0 0 Presumptive/ Confirmed Dx of aGVHD? (Y/N) y n No persistent nausea but noted weight loss. n HEENT: Headaches: no associated neuro sxs, [...] months ofanticoagulationwith apixiban, end date 04/14/19. HTN, FORM PRESSER: home regimen, triamterene/HCTZ. -s/p Lisinopril 5 mg PO daily (05/07-05/08) -DC'd triamterene/HCTZ on 06/03 with low-enoz BP and ongoing renal insufficien cy GI: Nausea/abd cramping: prior to BMs -Closely monitor for additional s/s of GVHD -Antiemetics PRN Risk of gastritis: -Pepcid 20 mg BID Risk for VOD:no e/o this currently -Ursodiol 500 mgPO BID through Day +90 /Renal: SAM:resolved and back to baseline. -1L NS bolus at each clinic visit. Psych: Insomnia/restless leg -Ramelteon ordered on 05/31, PA denied -Requip 0.5 mg qHS, increased on 06/13 Depression:Stable, continue home SSRI. -Lexapro 20 mg PO daily Infectious Disease: No acute issues. Afebrile and no [...] followed twice weekly for reactivation by PCR. On letermovir -HHV6 and EBV weekly -EBV- 06/16 undet -HHv6- 06/16 undet Lab Results Component Value Date CMVQUANTPCR Undetected 07/01/2019 CMVQUANTPCR Undetected 06/28/2019 CMVQUANTPCR Undetected 06/21/2019 CMVQUANTPCR Undetected 06/16/2019 Antifungal: Posaconazole for antifungal prophylaxis through day [...] KDur 20 mEq once daily, started 06/13. Plan Continue twice weekly infusion visits and weekly OV with me. 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 [facility] documented in thi s encounter Plan of Treatment + +------+--------+ + + | Name | Type | Priori | Associated Diagnoses | Order Schedule | | | | ty | | | + +------+--------+ + + | VERITO-LORENZO VIRUS | Lab | Routin | S/P cord blood | 1 time per week for | | PCR, PLASMA | | e | transplantation | 99 Occurrences | | | | | | starting 07/06/2019 | | | | | | until 08/06/2020, 6 | | | | | | completed | + +------+--------+ + + | HUMAN HERPES VIRUS 6 | Lab | Routin | S/P cord blood | 1 time per week for | | PCR (PLASMA OR CSF) | | e | transplantation | 99 Occurrences | | | | | | starting 07/06/2019 | | | | | | until 08/06/2020, 6 | | | | | | completed | + +------+--------+ + + documented as of this encounter Results HUMAN HERPES VIRUS 6 PCR (PLASMA OR CSF) (02/02/2020 9:38 AM PDT) + + + + + [...] - [facility] | | | | [place] [address] | | | | | | [phone]. | | | | | | Zeferino [...] A: | | | | | | [facility] | | | | + + + [...] [facility] | [address] | [place], [place] | | | UNIV PTH - [facility] | | [address] | | + + + + + VERITO-LORENZO VIRUS PCR, PLASMA (02/02/2020 9:38 AM PDT) + + + + + [...] we have completed a quantitative polymerase | [facility] | | chain reaction (PCR) based study [...] | | performance characteristics determined by the [facility] Molecular | | | Diagnostics Center. [...] | | under CLIA, CAP, and the [facility]. References: 1) | | | Phong [...] | | real-time polymerase chain reaction. Transfusion 2008;48:1567-4372. | | | 4) Bassam BEARDEN, Genny CASAS, Félix I, van keshia Bisanaz W, et al. | | | Frequent monitoring of Verito-Lorenzo virus DNA load in unfractionated | | | whole blood is essential for early detection of posttransplant | | | lymphoproliferative disease in high-risk patients. Blood | | | 2001;97(5):0258-4871. | | + + + + + + + + | Performing | Address | City/State/Zipcode | Phone Number | | Organization | | | | + + + + + | [facility] | [address] | [place] [address] | | | DIAGNOSTIC | [address] | | | | LABORATORIES | | | | + + + + + HUMAN HERPES VIRUS 6 PCR (PLASMA OR CSF) (11/03/2019 7:36 AM PDT) + + + [...] - [facility] | | | | [place] [address] | | | | | | [phone]. | | | | | | Zeferino [...] A: | | | | | | [facility] | | | | + + + [...] [facility] | [address] | [place], [place] | | | UNIV PTH - [facility] | | [address] | | + + + + + VERITO-LORENZO VIRUS PCR, PLASMA (11/03/2019 7:36 AM PDT) + + + [...] we have completed a quantitative polymerase | [facility] | | chain reaction (PCR) based [...] | | performance characteristics determined by the [facility] Molecular | | | Diagnostics Center. [...] | | under CLIA, CAP, and the [facility]. References: 1) | | | Phong [...] | | real-time polymerase chain reaction. Transfusion 2008;48:3856-8404. | | | 4) Bassam SULEIMAN, Genny CASAS, Félix I, van keshia Bij W, et al. | | | Frequent monitoring of Verito-Lorenzo virus DNA load in unfractionated | | | whole blood is essential for early detection of posttransplant | | | lymphoproliferative disease in high-risk patients. Blood | | | 2001;97(5):2288-3012. | | + + + + + + + + | Performing | Address | City/State/Zipcode | Phone Number | | Organization | | | | + + + + + | [facility] | [address] | [place] [address] | | | DIAGNOSTIC | [address] | | | | LABORATORIES | | | | + + + + + HUMAN HERPES VIRUS 6 PCR (PLASMA OR CSF) (09/01/2019 10:16 AM PST) + + + + + + | Component | Value | Ref Range | Performed | Pathologist | | | | | At | Signature | + + + + + + | SOURCE, INF | Plasma | | [facility] | | | SER/PCR [...] REG UNIV | | | QUANT | Laboratories,[facility] | | PTH - [facility] | | | | Way, [place] [address] | | | | | | [phone]. | | | | | | Zeferino [...] A: | | | | | | [facility] | | | | + + + [...] [facility] | [address] | [place], [place] | | | UNIV PTH - [facility] | | [address] | | + + + + + VERITO-LORENZO VIRUS PCR, PLASMA (09/01/2019 10:16 AM PST) + + + + + [...] | | performance characteristics determined by the [facility] Molecular | | | Diagnostics Center. [...] | | under CLIA, CAP, and the [facility]. References: 1) | | | Phong [...] | | real-time polymerase chain reaction. Transfusion 2008;48:8695-3958. | | | 4) Bassam BEARDEN, Genny CASAS, Félix I, van keshia Kristen W, et al. | | | Frequent monitoring of Verito-Lorenzo virus DNA load in unfractionated | | | whole blood is essential for early detection of posttransplant | | | lymphoproliferative disease in high-risk patients. Blood | | | 2001;97(5):6750-4363. | | + + + + + + + + | Performing | Address | City/State/Zipcode | Phone Number | | Organization | | | | + + + + + | [facility] | [address] | [place] [address] | | | DIAGNOSTIC | [address] | | | | LABORATORIES | | | | + + + + + HUMAN HERPES VIRUS 6 PCR (PLASMA OR CSF) (08/01/2019 1:59 PM PST) + + + + + [...] - [facility] | | | | [place] [address] | | | | | | [phone]. | | | | | | Zeferino [...] A: | | | | | | [facility] | | | | + + + [...] [facility] | [address] | [place], [place] | | | UNIV PTH - [facility] | | [address] | | + + + + + VERITO-LORENZO VIRUS PCR, PLASMA (08/01/2019 1:59 PM PST) + + + + + [...] we have completed a quantitative polymerase | [facility] | | chain reaction (PCR) based [...] | | performance characteristics determined by the [facility] Molecular | | | Diagnostics Center. [...] | | under CLIA, CAP, and the [facility]. References: 1) | | | Phong et al. Laboratory assays for EBV-related disease. J [facility] | | | Diagn 10: 279-292, 2007. 2) Khalida et al. EBV viral load and | | | disease prediction in a large cohort of allogeneic stem cell | | | transplant recipients. Clin Infect Dis 45: 1305-9, 2006. 3) | | | Manjula BEAR, Holly T, Bailee P, Isaura SK, Miguel A. Herpesvirus | | | prevalence and viral load in healthy blood donors by quantitative | | | real-time polymerase chain reaction. Transfusion 2008;48:5061-8678. | | | 4) Bassam BEARDEN, Genny CASAS, Félix I, van keshia Viktorj W, et al. | | | Frequent monitoring of Verito-Lorenzo virus DNA load in unfractionated | | | whole blood is essential for early detection of posttransplant | | | lymphoproliferative disease in high-risk patients. Blood | | | 2001;97(5):1953-9592. | | + + + + + + + + | Performing | Address | City/State/[facility] | Phone Number | | Organization | | | | + + + + + | [facility] | [address] | [place] [address] | | | DIAGNOSTIC | [address] [...] - [facility] | | | | [place] [address] | | | | | | [phone]. | | | | | | Zeferino [...] A: | | | | | | [facility] | | | | + + + [...] [facility] | [address] | [place], [place] | | | UNIV PTH - [facility] | | [address] | | + + + + + [...] | | performance characteristics determined by the [facility] Molecular | | | Diagnostics Center. [...] | | under CLIA, CAP, and the [facility]. References: 1) | | | Phong [...] | | real-time polymerase chain reaction. Transfusion 2008;48:2039-2290. | | | 4) Bassam SULEIMAN, Genny CASAS, Félix I, van keshia Bij W, et al. | | | Frequent monitoring of Verito-Lorenzo virus DNA load in unfractionated | | | whole blood is essential for early detection of posttransplant | | | lymphoproliferative disease in high-risk patients. Blood | | | 2001;97(5):7911-8651. | | + + + + + + + + | Performing | Address | City/State/Zipcode | Phone Number | | Organization | | | | + + + + + | [facility] | [address] | [place] [address] | | | DIAGNOSTIC | [address] [...] - [facility] | | | | [place] [address] | | | | | | [phone]. | | | | | | Zeferino [...] A: | | | | | | [facility] | | | | + + + [...] [facility] | [address] | [place], [place] | | | UNIV PTH - [facility] | | [address] | | + + + + + VERITO-LORENZO VIRUS PCR, PLASMA (07/14/2019 8:04 AM PST) [...] we have completed a quantitative polymerase | [facility] | | chain reaction (PCR) based study [...] | | performance characteristics determined by the [facility] Molecular | | | Diagnostics Center. [...] | | under CLIA, CAP, and the [facility]. References: 1) | | | Phong [...] | | real-time polymerase chain reaction. Transfusion 2008;48:8656-8609. | | | 4) Bassam BEARDEN, Genny CASAS, Pronk I, van keshia Bij W, et al. | | | Frequent monitoring of Verito-Lorenzo virus DNA load in unfractionated | | | whole blood is essential for early detection of posttransplant | | | lymphoproliferative disease in high-risk patients. Blood | | | 2001;97(5):3740-3785. | | + + + + + + + + | Performing | Address | City/State/Zipcode | Phone Number | | Organization | | | | + + + + + | [facility] | [address] | [place] [address] | | | DIAGNOSTIC | [address] | | | | LABORATORIES | | | | + + + + + VERITO-LORENZO VIRUS PCR, PLASMA (07/07/2019 9:41 AM PST) + + + [...] we have completed a quantitative polymerase | [facility] | | chain reaction (PCR) based study [...] | | performance characteristics determined by the [facility] Molecular | | | Diagnostics Center. [...] | | under CLIA, CAP, and the [facility]. References: 1) | | | Phong [...] | | real-time polymerase chain reaction. Transfusion 2008;48:8693-3360. | | | 4) Bassam SULEIMAN, Genny CASAS, Félix I, van keshia Viktorj W, et al. | | | Frequent monitoring of Verito-Lorenzo virus DNA load in unfractionated | | | whole blood is essential for early detection of posttransplant | | | lymphoproliferative disease in high-risk patients. Blood | | | 2001;97(5):9246-1396. | | + + + + + + + + | Performing | Address | City/State/Zipcode | Phone Number | | Organization | | | | + + + + + | [facility] | [address] | [place] [address] | | | DIAGNOSTIC | [address] [...]
--- OUTSIDE RECORDS SUMMARY | ~2020-03-12 | XMS | Encounter Summary ---
Demographics + + + | Address | [address] | | | [place] [address] | + + + | Home Phone | | + + + | Preferred Language | Unknown | + + + | Marital Status | Single | + + + | Yazidism Affiliation | NRP | + + + [...] Team Providers + +------+ + | Care Chairman & Chief Executive Officer Name | Role | Phone | + +------+ + | Meredith Sanchez | PCP | | + +------+ + Encounter Details +--------+ + + + + | Date | Type | Department | Care Team | Description | +--------+ + + + + | 06/09/ | Pharmacy | Pharmacy @ [facility] | | | | 2019 | Visit | [address] | | | | | | Reji Callahan Mailcode: | | | | | | [facility] | | | | | | and Healing, | | | | | | [address] | | | | | | [place], [place] | | | | | | [address] | | | +--------+ + + + [...]
--- OUTSIDE RECORDS SUMMARY | ~2020-03-12 | XMS | Encounter Summary ---
Demographics + + + | Address | [address] | | | [place] [address] | + + + | Home Phone [...] Providers + +------+ + | Care Manager Heart Failure Name | Role | Phone | + +------+ + | Meredith Sanchez | PCP | | + +------+ + Encounter Details +--------+--------+ + + + | Date | Type | Department | Care Team | Description | +--------+--------+ + + + | 06/16/ | Travel | | | | | [...]
--- OUTSIDE RECORDS SUMMARY | ~2020-03-12 | XMS | Encounter Summary ---
Demographics + + + | Address | [address] | | | [place] [address] | + + + | Home Phone [...] Team Providers + +------+ + | Care Diesel Power Shovel Operator Name | Role | Phone | + +------+ + | Meredith Sanchez | PCP | | + +------+ + Encounter Details +--------+--------+ + + + | Date | Type | Department | Care Team | Description | +--------+--------+ + + + | 06/07/ | Travel | | | | | [...]
--- OUTSIDE RECORDS SUMMARY | ~2020-03-12 | XMS | Encounter Summary ---
Demographics + + + | Address | [address] | | | [place] [address] | + + + | Home Phone [...] Team Providers + +------+ + | Care Food And Beverage Director Name | Role | Phone | + +------+ + | Meredith Sanchez | PCP | | + +------+ + Reason for Visit + +--------+ + | Reason | Onset | Comments | | | Date | | + +--------+ + | Medication Questions | 05/16/ | [facility] calling to ask exactly when pt will | | | 2019 | be needing Posaconazole, so there is no lapse in care | | | | when it is time to have the medication ready | + +--------+ + Encounter Details +--------+ + + + + | Date | Type | Department | Care Team | Description | +--------+ + + + + | 05/16/ | Telephone | [facility] | Sejal De La Torre | Medication Questions | | 2019 | | Clinics at S | N, DO [address] | ([facility] | | | | [facility] [address] | calling to ask | | | | [facility] for | [place], [place] | exactly when pt will | | | | Health and Healing, | [address] | be needing | | | | [address] | [phone] | Posaconazole, so | | | | [place], [place] | | there is no lapse in | | | | [address] | | care when it is | | | | [phone] | | time to have the | | | | | | medication ready) | +--------+ + + + + Social [...] Notes Telephone Encounter - Tayo Casillas - 05/16/2019 2:57 PM PST [facility] was calling to ask if they could get a release day for pt so they will know to have Posaconazole ready. Pharmacist stated they got the order over a month ago but they said they are worried that t enriqueta will not know when pt is released and that they might not have the meds ready (stated it 'll take 3-4 days to have prepared) Pharm. would like a call back with any details or update on pt at [phone] 100 mg oral tablet,delayed release (DR/EC) (NOXAFIL) Yes / No T Y W M >M U Take 3 tablets by mouth once daily. Indications: prevention of fungal infection documented in this e ncounter Plan of Treatment Not on filedocumented as of this encounter Visit Diagnoses Not on filedocumented in this encounter"
--- OUTSIDE RECORDS SUMMARY | ~2020-03-12 | XMS | Encounter Summary ---
Demographics + + + | Address | [address] | | | [place] [address] | + + + | Home Phone [...] Team Providers + +------+ + | Care Wet Trimmer Name | Role | Phone | + +------+ + | Meredith Sanchez | PCP | | + +------+ + Reason for Visit + +--------+ + | Reason | Onset | Comments | | | Date | | + +--------+ + | Medication Questions | 07/13/ | Clarification of some medications being filled to send | | | 2020 | [address] | + +--------+ + Encounter Details +--------+ + + + + | Date | Type | Department | Care Team | Description | +--------+ + + + + | 07/13/ | Telephone | [facility] | Sejal De La Torre | Medication Questions | | 2020 | | Clinics at S | N, DO [address] [facility] | (Clarification of | | | | [facility] [address] | some medications | | | | [facility] for | [place], [place] | being filled to send | | | | Health [facility] Healing, | [address] | out [facility]) | | | | [facility] | [phone] | | | | | [place], [place] | | | | | | [address] | | | | | | [phone] | | | +--------+ + + + [...] Telephone Encounter - Rebeca Portillo MA - 07/13/2019 11:09 AM PSTCalled Pharmacy back and cl arified questions regarding dose to take and that patient is no longer taking Letermovir (Pr merlyn). Pharmacist stated understanding and updated her notes in the system. Rebeca Portillo CMA, [facility] Hematology Oncology Stripper Preliminary [facility] P [phone] F [phone] elephone Encounter - Rosalie Broussard - 07/13/2019 10:14 AM PSTFormatting of this note might be different from the elinor price. Simon from [facility] called and is needing clarification and it is urgent that this gets a david l back as they are trying to fill the order and there is some confusion with these medicatio ns. They can be called back at [phone] 100 mg oral tablet,delayed release (DR/EC) (NOXAFIL) Yes / No T Y W M >M U Take 4 tablets by mouth once daily. Indications: prevention of fungal infection He also gave me another medication that I can not find in the med list they said it was previmes 480mg. Please call them when possible as they are trying to fill the order for the patient documented in this e ncounter Plan of Treatment Not on filedocumented as of this encounter Visit Diagnoses Not on filedocumented in this encounter"
--- OUTSIDE RECORDS SUMMARY | ~2020-03-12 | XMS | Encounter Summary ---
Demographics + + + | Address | [address] | | | [place] [address] | + + + | Home Phone [...] Author + + + | Author | [facility] | + + + | Organization | [facility] | + + + | Address | Unknown | + + + | Phone | Unavailable | + + + Support + + +---------+ + | Name | Relationship | Address | Phone | + + +---------+ + | Claudia Cota | ECON | Unknown | | + + +---------+ + Care Team Providers + +------+ + | Care Relief Worker Name | Role | Phone | + +------+ + | Meredith Sanchez | PCP | | + +------+ + Encounter Details +--------+ + + + + | Date | Type | Department | Care Team | Description | +--------+ + + + + | 04/22/ | Pharmacy | Outpatient Retail | | | | 2019 | Visit | [facility] | | | | | | [address] | | | | | | [address] [place], [place] | | | | | | [address] | | | | | | [phone] | | | +--------+ + + + [...]
--- OUTSIDE RECORDS SUMMARY | ~2020-03-12 | XMS | Encounter Summary ---
Demographics + + + | Address | [address] | | | [place] [address] | + + + | Home Phone | | + + + | Preferred Language | Unknown | + + + | Marital Status | Single | + + + | Jehovah'S Witness Affiliation | NRP | + + + | Race | White | + + + | Ethnic Group | Not or | + + + Author + + + | Author | [facility] | + + + | Organization | [facility] | + + + | Address | Unknown | + + + | Phone | Unavailable | + + + Support + + +---------+ + | Name | Relationship | Address | Phone | + + +---------+ + | Claudia Cota | ECON | Unknown | | + + +---------+ + Care Team Providers + +------+ + | Care Gm Mobile Name | Role | Phone | + +------+ + | Meredith Sanchez | PCP | | + +------+ + Reason for Referral Consultation (Urgent) +--------+--------+ + + + + | Status | Reason | Specialty | Diagnoses / | Referred By | Referred To | | | | | Procedures | Contact | Contact | +--------+--------+ + + + + | Denied | | Ophthalmology | Diagnoses | [place], | Cei Comp | | | | | GVHD (graft | Sejal Meadows, | Oph Fac Chh1 | | | | | versus host | DO [address] | [address] | | | | | disease) | [address] | [facility] | | | | | ([facility]) Hx of | [address] | for Health | | | | | allogeneic | [place], [place] | and Healing, | | | | | stem cell | [address] | [address], | | | | | transplant | Phone: | 11th Floor | | | | | (HCC) | [phone] | [place], [place] | | | | | Immunocompro | Fax: | [phone] | | | | | mised state | [phone] | Phone: | | | | | due to drug | | [phone] | | | | | therapy | | Fax: | | | | | Procedures | | [phone] | | | | | CONSULT TO | | | | | | | ADULT | | | | | | | OPHTHALMOLOG | | | | | | | Y | | | +--------+--------+ + + + + Encounter Details +--------+ + + + + | Date | Type | Department | Care Team | Description | +--------+ + + + + | 01/25/ | Telephone-S | [facility] | Sejal De La Torre | | | 2019 | cheduled | Clinics at S | N, DO [address] [facility] | | | | | [facility] [address] | | | | | [facility] | [place], [place] | | | | | Health and Healing, | [address] | | | | | Building [address] | [phone] | | | | | | | | | | | [address] | | | | | | [phone] | | | +--------+ + + + [...] documented as of this encounter Progress Notes Sejal De La Torre DO - 01/26/2020 10:45 AM PDT 01/26/2020 - Day +278 post transplant Patient agrees to a telephone encounter for today's visit. They understand they may be resp onsible for the balance after insurance processes the claim. The visit took place via telephone with the provider located at the distant site of [facility]. T he patient stated they were located at the originating site of home and were in the state of [place] at the time of the telephone visit. The names of all additional persons participating in the telephone visit and their roles are: Analy and myself. Time spent on the call: 22 minutes The patients encounter was accomplished via a telephone call today due to COVID-19 precauti onary measures to limit the patient's unnecessary exposure. [facility] Physician: Sejal De La Torre DO Local oncologist: Dr. Sequeira Hematologic Malignancy: MDS Conditioning regimen: FluCyTBI Date of transplant: 04/22/2019 Donor: CBU 1: [id number]/02 match, CBU 2: [id number]/02 match Research study: Kyle "[id number]: A Multicenter, Randomized, Phase III Registration Tr [...] imaging on 07/21/19 showed improvement. 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 --December 2018- developed fevers up to 104. Work up neg for infection, but noted to have CBC s howing dropping counts. --Jun. Moved to [place] ([facility]) -- 10/07/18 showed normal chemistries, Bilirubin 1.4, [...] for D4-D7. 01/14-01/26/2019 admitted for zoster to [facility]. Vidaza held. 02/17/2019- seen at [facility] by Dr. De La Torre, no healthy siblings so cord blood is only option -consented to kyle "[id number]: A Multicenter, Randomized, Phase III Registration Tri ks of Transplantation of NiCord, Ex Vivo Expanded, UCB-derived, Stem and Progenitor Cells, vs. Unmanipulated UCB for Patients With Hematological Malignancies". She was randomized to SOC arm. --02/21-03/01 C3 aza.Tolerated well without complications. --04/15-05/18/2019 admitted to [facility] for planned flu/cy/tbi conditioned UCB on Anneida study (SOC arm). Main complications included Strep [...] has been tolerating gradual taper. Interval History: Ludmila is available by phone for today's visit. She notes that her rash is much better. She is using ivory soap on her face and vasoline which has improved. The worst areas are on her nose. Her arms are better. She has some areas on her legs that are improving. She is current ly on prednisone 15 mg daily. She is not using the steroid cream. She has a travel registered nurse pacu ap pointment on 02/13/20. Her eye redness has improved. Her eyes are less dry and she is using e ye drops every other day with artifical tears which has helped. She is still having some iss ues with leg weakness and legs giving out on her. She recently bought exercise bike. She is also walking 1 mile per day. She is having significant fatigue but reports sleeping well. Felicita gaines has been gaining a lot of weight on the steroids. SBP still running high in the 170s. No h eadaches reported. No fever/chills. No N/V/D. No other new complaints. ROS negative unless listed above. Current Medication List Name Sig CARVEDILOL 12.5 MG TABLET Take 1 tablet by mouth two times daily. Administer with food. DAPSONE 100 MG TABLET Take 1 tablet [...] skin and rub in gently. Indications: skin cpiid-axirvf-pgmr disease MAGNESIUM OXIDE-MAGNESIUM AMINO ACID CHELATE 133 MG TABLET Take 2 tablets by mouth two time s daily. OMEPRAZOLE 40 MG CAPSULE,DELAYED RELEASE Take 1 capsule by mouth once daily. Administer 30 to 60 minutes before meals POSACONAZOLE 100 MG TABLET,DELAYED RELEASE Take 4 tablets by mouth once daily. Indications: prevention of fungal infection PREDNISONE 10 MG TABLET As of 12/29/19: Decrease to 15mg once daily TACROLIMUS 0.5 MG CAPSULE As of 11/03/19: [...] 1 tablet by mouth two times daily. NO PE or VS d/t phone visit Labs from 01/06/20: WBC 3.5, Hb 9.4, Plt 120, diff shows no blasts. Cr 1.1, BT 0.7 LFT and c hem WNL Tacrolimus level of 5.8 Assessment/Plan: 1. Hematology: History of MDS s/p FluCyTBI double cord (Day 0=04/22/19) She is enrolled in [facility] "[id number]: A Multicenter, Randomized, Phase III Registration Trial [...] no prior mutations were det ected on genetrails. Her engraftment studies show 100% donor #2 (female) D+90. PB chimerism 07/21-100% cord #2 -BMBx completed on 11/03/19 with chimerisms and immune reconstitution panel per [facility], results show RIRI. Myeloid panel negative. PB 100% cord #2. -plan for labs here next week. 2. GVHD: Probable skin and upper/lower GI [...] and prednisone was increased to 30mg daily. She was decreased to 20mg once daily on 10/12 but has had intermittent flares. She last was decreased to 15 mg on 12/28. Will keep at this dose given recent flare. Since not able to see derm and ophthalmology locally, I placed consults to be seen at [facility] in the next 2 weeks. She is willing to come t o [place]. -Prednisone: Continue 15mg M/W/F 10 mg all other days starting 01/25. Derm appointment on . Referral placed ophthalmology -Tacrolimus, continue with goal 5-10. Last level at goal on 01/05 at 5.8 Kyle Simpson phase 3 (IRB 04292) Acute GVHD Staging Complete on study visit [...] mL diarrhea/day 2 25-50% BSA 3.1-6 mg/dL 5329-0067 mL diarrhea/day 3 >50% BSA Generalized erythroderma [...] toxicity:n TPN:n Infection:y Other (describe):n Complete Values: BSA%:50 Bullae (Y/N):n TBili: 0.6 24H Diarrhea Vol: none Severe abd pain (Y/N): n Ileus (Y/N):n Assign Stage: 1 0 Biopsy not c/w GVHD, +colitis Biopsy not c/w GVHD Presumptive/ Confirmed Dx of aGVHD? (Y/N) Y n n n Kyle Simpson phase 3 NIH Consensus - Chronic GVHD Scoring: Day 100, 180, 270, 365 IRB 70849 Score 1(skin) Performance Scoring Not Present 0 Mild 1< Moderate 2 Severe 3 System Score (0-3) Skin: 1 Mouth: 0 Eyes: 1 GI Tract: 0 Liver: 0 Lungs: 0 [...] 74. Unchange d from prior. 3. ID: no recent infections. Continue prophylactic antimicrobials with Valtrex (recent hx H SV, will continue through Day +365), posaconazole and dapsone (allergy to Sulfa). Of note, p atient is toxo negative. -Per cord protocol: Check EBV and HHV6 monthly and PRN. No hx of viremia. CMV PCR negative on 01/06/20 -Continue posaconazole Vaccinations: Influenza vaccine administered 07/28/19 and Prevnar#1 administered on 07/28/19. Conjunctivitis, R>L: Resolved s/ erythromycin ointment QID x4 day. 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 Start artifical tears, preservative free. Stable. 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 Increase coreg to 25 mg BID starting 01/26/2020 5. SAM Cr 1.1 improved form peak 1.4 likely related to HCTZ BP medication and tacrolimus. S topped HCTZ and started coreg with improvement 6. FEN: Continue oral mag 7. GI: Risk of gastritis d/t steroids: Continue omeprazole 40 mg daily 6. Pysch: #Insomnia related to RLS: continue Requip 0.5 mg qHS #Depression:Stable, continue home SSRI. -Lexapro 20 mg PO daily 8. MSK: Deconditioning post transplant with right foot drop and leg weakness, R>L. This is improving overtime. -Continue strength training exercises and walking at home Plan Plan for in-person visit in 1 week to check skin and monitor GVHD symptoms Referral placed to derm and ophthalmology at [facility] Sejal De La Torre DO Behavior Management Specialistfuel management handler [facility] documented in this encounter Plan of Treatment Not on filedocumented as of this encounter Results SPIROMETRY, PULM FUNCTION LAB (02/23/2020 9:33 AM PDT) + + + + + + | Component | Value | Ref Range | Performed | Pathologist | | | | | At | Signature | + + + + + + | PULMONARY | Site: [facility] and | | [facility] | | | INTERPRETAT | [facility], [address] | | SPECIAL | | | [address] | [facility] | | DIAGNOSTICS | | | | [address],[place], [place], | | - | | | | [phone]: [id number] | | PULMONARY | | | | Name: ANALY HOPPER | | FUNCTION | | | | ANNVisit Date: | | | | | | 02/23/2020 Second ID: | | | | | | [id number]: | | | | | | Martita Tiptonge: 54 | | | | | | : 1965 Sex: | | | | | | Female Race: | | | | | | CaucasianHeight: 157.20 | | | | | | Cms Weight: 65.40 | | | | | | Kgs BSA: 1.66Order | | | | | | IDs: [id number] | | | | | | Test(s): | | | | | | <SPIROMETRY>Diagnosis: | | | | | | D89.813 DVHDDyspnea: No | | | | | | Dyspnea Cough: No | | | | | | Cough Wheeze: No | | | | | | WheezeTbco Prod: | | | | | | Cigarette Yrs Smk: | | | | | | 26.0 Pks/Day: 1.0 | | | | | | Yrs Quit: 12.0Post | | | | | | Test Comments: Patient | | | | | | height and weight | | | | | | reviewed. Good patient | | | | | | effort &cooperation. | | | | | | The results of FVC and | | | | | | DLCO meet the ATS | | | | | | standards | | | | | | foracceptability and | | | | | | repeatability. Unable to | | | | | | achieve acceptable | | | | | | results for | | | | | | LungVolumes.Review | | | | | | Status: [...] | | | | | | | 3.18 | | | | | | 2.54 80FEV1 (L) | | | | | | | | | | | | 2.49 1.75 | | | | | | 70FEV1/FVC (%) | | | | | | | | | | | | 79 69 | | | | | | 87FEF 25% (L/sec) | | | | | | 4.88 | | | | | | 4.19 85FEF 50% | | | | | | (L/sec) | | | | | | 3.77 1.28 | | | | | | 33FEF 75% (L/sec) | | | | | | | | | | | | 1.32 0.39 | | | | | | 29FEF 25-75% (L/sec) | | | | | | 2.44 | | | | | | 1.03 42FEF Max | | | | | | (L/sec) | | | | | | 6.22 6.11 | | | | | | 98FIVC (L) | | | | | | | | | | | | 2.58FIF | | | | | | 50% (L/sec) | | | | | | 4.64 | | | | | | 6.26 134FIF Max | | | | | | (L/sec) | | | | | | | | | | | | 6.30Expiratory Time | | | | | | (sec) | | | | | | 6.58Back Extrap | | | | | | Vol (L) | | | | | | 0.10Time | | | | | | To FEFmax (sec) | | | | | | | | | | | | 0.071LUNG VOLUMESSVC (L) | | | | | | | | | | | | 2.96 | | | | | | 2.42 81IC (L) | | | | | | | | | | | | 2.09 2.16 | | | | | | 103ERV (L) | | | | | | | | | | | | 0.87 0.23 | | | | | | 26DIFFUSIONDLCOunc | | | | | | (ml/min/mmHg) | | | | | | 21.32 10.73 | | | | | | 50DLCOadj | | | | | | (ml/min/mmHg) | | | | | | 21.32 12.36 | | | | | | 57DL/VA | | | | | | (ml/min/mmHg/L) | | | | | | 4.50 2.75 | | | | | | 61VA (L) | | | | | | | | | | | | 4.74 4.49 | | | | | | 94BHT (sec) | | | | | | | | | | | | 10.27IVC (L) | | | | | | | | | | | | | | | | | | 2.39TLC (SB) (L) | | | | | | | | | | | | 4.64AIRWAYS | | | | | | RESISTANCEBLOOD GASESHgb | | | | | | (gm/dL) | | | | | | | | | | | | 9.8 Interpretation: | | | | | | INTERPRETATION: | | | | | | SPIROMETRY:FEV1/FVC | | | | | | ratio is at the lower | | | | | | limit of normal (69%), | | | | | | with mild scooping | | | | | | offlow volume loop, and | | | | | | a moderately reduced | | | | | | FEV1 at 70% is | | | | | | suggestive ofmoderate | | | | | | obstructive lung | | | | | | disease. Significant | | | | | | drop in FEV1 and FVC | | | | | | since spirometry | | | | | | 07/28/2019, without | | | | | | change inratio. | | | | | | DIFFUSION | | | | | | CAPACITY:Mildly reduced | | | | | | DLCO. Significant drop | | | | | | in DLCO since last | | | | | | spirometry 07/28/19. | | | | | | CONCLUSION:Possible | | | | | | obstructive lung | | | | | | disease, although | | | | | | FEV1/FVC ratio is at the | | | | | | lowerlimit of normal, | | | | | | with significant drops | | | | | | in FEV1 and FVC (by 10% | | | | | | each) and inDLCO (by | | | | | | 23%) since 07/28/2019 | | | | | | pulmonary function | | | | | | testing.Consider | | | | | | concomitant restrictive | | | | | | defect or parenchymal | | | | | | lung disease, | | | | | | recommendlung volume | | | | | | testing. This | | | | | | interpretation has been | | | | | | electronically signed: | | | | | | Chuy Medina | | | | | | 02/25/202008:41:30 AM | | | | + + + + + + | FVC PRE | 2.54 | 3.18 L | [facility] | | | | | | SPECIAL | | | | | | DIAGNOSTICS | | | | | | - | | | | | | PULMONARY | | | | | | FUNCTION | | + + + + + + | FVC PRE | 80 | % | [facility] | | | (%REF) | | | SPECIAL | | | | | | DIAGNOSTICS | | | | | | - | | | | | | PULMONARY | | | | | | FUNCTION | | + + + + + + | FEV1 PRE | 1.75 | 2.49 L | [facility] | | | | | | SPECIAL | | | | | | DIAGNOSTICS | | | | | | - | | | | | | PULMONARY | | | | | | FUNCTION | | + + + + + + | FEV1 PRE | 70 | % | [facility] | | | [...] + + + | PEF PRE | 6.11 | 6.22 L/sec | [facility] | | | | | | SPECIAL | | | | | | DIAGNOSTICS | | | | | | - | | | | | | PULMONARY | | | | | | FUNCTION | | + + + + + + | PEF PRE | 98 | % | [facility] | | | (%REF) | | | SPECIAL | | | | | | DIAGNOSTICS | | | | | | - | | | | | | PULMONARY | | | | | | FUNCTION | | + + + + + + | [id number]% | 1.03 | 2.44 L/sec | [facility] | | | PRE | | | SPECIAL | | | | | | DIAGNOSTICS | | | | | | - | | | | | | PULMONARY | | | | | | FUNCTION | | + + + + + + | [id number]% | 42 | % | [facility] | | | PRE (%REF) | | | SPECIAL | | | | | | DIAGNOSTICS | | | | | | - | | | | | | PULMONARY | | | | | | FUNCTION | | + + + + + + | FIF50% PRE | 6.26 | 4.64 L/sec | [facility] | | | | | | SPECIAL | | | | | | DIAGNOSTICS | | | | | | - | | | | | | PULMONARY | | | | | | FUNCTION | | + + + + + + | FIF50% PRE | 134 | % | [facility] | | | (%REF) | | | SPECIAL | | | | | | DIAGNOSTICS | | | | | | - | | | | | | PULMONARY | | | | | | FUNCTION | | + + + + + + | VC PRE | 2.42 | 2.96 L | [facility] | | | | | | SPECIAL | | | | | | DIAGNOSTICS | | | | | | - | | | | | | PULMONARY | | | | | | FUNCTION | | + + + + + + | VC PRE | 81 | % | [facility] | | | (%REF) | | | SPECIAL | | | | | | DIAGNOSTICS | | | | | | - | | | | | | PULMONARY | | | | | | FUNCTION | | + + + + + + | IC PRE | 2.16 | 2.09 L | [facility] | | | | | | SPECIAL | | | | | | DIAGNOSTICS | | | | | | - | | | | | | PULMONARY | | | | | | FUNCTION | | + + + + + + | IC PRE | 103 | % | [facility] | | | (%REF) | | | SPECIAL | | | | | | DIAGNOSTICS | | | | | | - | | | | | | PULMONARY | | | | | | FUNCTION | | + + + + + + | ERV PRE | 0.23 | 0.87 L | [facility] | | | | | | SPECIAL | | | | | | DIAGNOSTICS | | | | | | - | | | | | | PULMONARY | | | | | | FUNCTION | | + + + + + + | ERV PRE | 26 | % | [facility] | | | (%REF) | | | SPECIAL | | | | | | DIAGNOSTICS | | | | | | - | | | | | | PULMONARY | | | | | | FUNCTION | | + + + + + + | DLCO PRE | 10.73 | 21.32 | [facility] | | | | | ml/min/mmHg | SPECIAL | | | | | | DIAGNOSTICS | | | | | | - | | | | | | PULMONARY | | | | | | FUNCTION | | + + + + + + | DLCO PRE | 50 | % | [facility] | | | (%REF) | | | SPECIAL | | | | | | DIAGNOSTICS | | | | | | - | | | | | | PULMONARY | | | | | | FUNCTION | | + + + + + + | DLCO ADJ | 12.36 | 21.32 | [facility] | | | PRE | | ml/min/mmHg | SPECIAL | | | | | | DIAGNOSTICS | | | | | | - | | | | | | PULMONARY | | | | | | FUNCTION | | + + + + + + | DLCO ADJ | 57 | % | [facility] | | | PRE (%REF) | | | SPECIAL | | | | | | DIAGNOSTICS | | | | | | - | | | | | | PULMONARY | | | | | | FUNCTION | | + + + + + + | DLCO/VA ADJ | 2.75 | ml/min/mmHg/L | [facility] | | | PRE | | | SPECIAL | | | | | | DIAGNOSTICS | | | | | | - | | | | | | PULMONARY | | | | | | FUNCTION | | + + + + + + | DLCO/VA ADJ | 61 | % | [facility] | | | [...] + + + + + | [facility] | [address] | [place], [place] | | | DIAGNOSTICS - | [address] | [address] | | | PULMONARY FUNCTION | | | | + + + + + documented in this encounter Visit Diagnoses + + | Diagnosis | + + | Immunocompromised state due to drug therapy - Primary | + + | 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, | | unspecified site | + + | Hx of allogeneic stem cell transplant (HCC) | + + documented in this encounter
--- OUTSIDE RECORDS SUMMARY | ~2020-03-12 | XMS | Encounter Summary ---
Demographics + + + | Address | [address] | | | [place] [address] | + + + | Home Phone [...] Author + + + | Author | [facility] | + + + | Organization | [facility] | + + + | Address | Unknown | + + + | Phone | Unavailable | + + + Support + + +---------+ + | Name | Relationship | Address | Phone | + + +---------+ + | Claudia Cota | ECON | Unknown | | + + +---------+ + Care Team Providers + +------+ + | Care Car Deliverer Name | Role | Phone | + +------+ + | Meredith Sanchez | PCP | | + +------+ + Reason for Visit + +--------+ + | Reason | Onset | Comments | | | Date | | + +--------+ + | Medication Questions | 02/12/ | Losartan question | | | 2020 | | + +--------+ + Encounter Details +--------+ + + + + | Date | Type | Department | Care Team | Description | +--------+ + + + + | 02/12/ | Telephone | [facility] | Sejal De La Torre | Medication Questions | | 2020 | | Clinics at S | N, DO [address] | (Losartan question) | | | | [facility] [address] | [facility] | | | | | [facility] for | [place], [place] | | | | | Health and Healing, | [address] | | | | | [address] | [phone] | | | | | [place], [place] | | | | | | [address] | | | | | | [phone] | | | +--------+ + + + [...] Telephone Encounter - Tayo Osborne MA - 02/13/2020 2:51 PM PDTWhile I spoke with Michael vizcaino about her Tacrolimus dose update, Nona wanted Dr De La Torre to know about her BP. Nona says that she's taking her BP 2-3 times daily and sometimes it's high, for example 1 79/104. Since she's been taking her Losartan 25mg QD the BP is still too high. She asks to please call her if she needs to adjust the meds. documented in this encounter Plan of Treatment Not on filedocumented as of this encounter Visit Diagnoses Not on filedocumented in this encounter"
--- OUTSIDE RECORDS SUMMARY | ~2020-03-12 | XMS | Encounter Summary ---
Demographics + + + | Address | [address] | | | [place] [address] | + + + | Home Phone | | + + + | Preferred Language | Unknown | + + + | Marital Status | Single | + + + | Church Affiliation | NRP | + + + [...] Team Providers + +------+ + | Care Retail Administrative Assistant Name | Role | Phone | + +------+ + | Meredith Sanchez | PCP | | + +------+ + Reason for Visit + +--------+ + | Reason | Onset | Comments | | | Date | | + +--------+ + | Medication | 05/20/ | [facility] specialty pharm called to inform staff of | | | 2019 | medication interaction when prevymis and tacrolimus are | | | | taken together | + +--------+ + Encounter Details +--------+ + + + + | Date | Type | Department | Care Team | Description | +--------+ + + + + | 05/20/ | Telephone | [facility] | Sejal De La Torre | Medication (Volodymyr | | 2019 | | Clinics at S | N, DO [address] [facility] | health specialty | | | | [facility] [address] [facility] [address] | pharm called to | | | | [facility] for | [place], [place] | inform staff of | | | | Health and Healing, | [address] | medication | | | | [address] | [phone] | interaction when | | | | [place], [place] | | prevymis and | | | | [address] | | tacrolimus are taken | | | | [phone] | | together ) | +--------+ + + + + Social [...] Notes Telephone Encounter - Tayo Casillas - 05/20/2019 10:33 AM PST Ada from [facility] called wanting to inform Dr and staff about medic ation interaction with Prevymis and Tacrolimus; stating that when taken together the prevymi s inhibits metabolization of tacrolimus causing tacrolimus to stay in the body longer, which might lead to kidney toxicity. [facility] caller (ada) left this number in case anyone has any quest ions [phone] letermovir 480 mg oral tablet (PREVYMIS) Yes / No T Y W M >M U Take 1 tablet by mouth once daily. 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 Combine 0 .5mg and 1mg capsules to make your current dose. HOLD on days of clinic and bring with you t o take AFTER your labs are drawn. Indications: prevention of graft versus host disease documented in this e ncounter Plan of Treatment Not on filedocumented as of this encounter Visit Diagnoses Not on filedocumented in this encounter"
--- OUTSIDE RECORDS SUMMARY | ~2020-03-12 | XMS | Encounter Summary ---
Demographics + + + | Address | [address] | | | [place] [address] | + + + | Home Phone [...] Team Providers + +------+ + | Care Waste Baler Name | Role | Phone | + +------+ + | Meredith Sanchez | PCP | | + +------+ + Reason for Visit AUTH/CERT +--------+--------+ + + + + | [...] Description | +--------+---------+ + + + | 07/07/ | Office | [facility] | Cathy Cornelius | GVHD (graft versus | | 2020 | Visit | Clin[facility] | M, JOY OPERATOR HELPER [address] | host disease) (HCC) | | | | [facility] [address] | [facility] [address] | (Primary Dx) | | | | [facility] for | [place], [place] | | | | | Health and Healing, | [address] | | | | | [facility] [address] | [phone] | | | | | [place], [place] | | | | | | [address] | | | | | | [phone] | | | +--------+---------+ + + + [...] + + + | Blood Pressure | 110/63 | 07/07/2019 9:46 AM | | | | | PST | | + + + + + | Pulse | 97 | 07/07/2019 9:46 AM | | | | | PST | | + + + + + | Temperature | 36.6 C (97.8 F) | 07/07/2019 9:46 AM | | | | | PST | | + + + + + | Respiratory Rate | 17 | 07/07/2019 9:46 AM | | | | | PST | | + + + + + | Oxygen Saturation | 96% | 07/07/2019 9:46 AM | | | | | PST | | + + + + + | Inhaled Oxygen | - | - | | | Concentration | | | | + + + + + | Weight | 56.2 kg (124 lb) | 07/07/2019 9:46 AM | | | | | [...] documented as of this encounter Progress Notes Cathy Cornelius NP - 07/07/2019 10:30 AM PST 07/07/19- Day +76 post transplant [facility] Physician: Sejal De La Torre DO Local oncologist: Dr. Sequeira Hematologic Malignancy: MDS Conditioning regimen: FluCyTBI Date of transplant: 04/22/2019 Donor: CBU 1: [id number]/02 match, CBU 2: [id number]/02 match Research study: Kyle "[id number]: A Multicenter, Randomized, Phase III Registration Tr [...] s howing dropping counts. --Jun. Moved to [place] ([facility]) -- 10/07/18 showed normal chemistries, [...] for D4-D7. 01/14-01/26/2019 admitted for zoster to [facility]. Vidaza held. 02/17/2019- seen at [facility] by Dr. De La Torre, no healthy siblings so cord blood is only option -consented to kyle "[id number]: A Multicenter, Randomized, Phase III Registration Tri mi of Transplantation of NiCord, Ex Vivo Expanded, UCB-derived, Stem and Progenitor Cells, vs. Unmanipulated UCB for Patients With Hematological Malignancies". She was randomized to SOC arm. --02/21-03/01 C3 aza.Tolerated well without complications. --04/15-05/18/2019 admitted to [facility] for planned flu/cy/tbi conditioned UCB on Gamida study (SOC arm). 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 Nona [place] is a 53 y.o. female with hx of MDS, currently day +76, s/p Flu/cy/TBI co nditioned URD cord on gamida trial -on SOC arm. Interval History: Nona comes to clinic today for post-transplant follow up. She is not [facility] well today. She has increased number of bowel movements and abdominal cramping since h er last visit. She states she is taking imodium several times daily and has not noted signif icant improvement. She states the abdominal cramping occurs soon after pills or a meal and t hen worsens or improves if she has a bowel movement. At her last visit, Dr. Galindo was suspi tonny for skin and upper GI GVHD but Nona did not have any symptoms of lower GVHD at that time. She does note improvement in her rash, previously on her shoulders, chest and back and now localized to upper back after using steroid cream. She continues to have upper GI sympt oms with low appetite and inability to eat food. She states there have been days this week t hat she has not been able to eat anything. She is still able to take her pills and drink flu ids, but I am concerned about how much of that is getting absorbed. She denies lightheadedne ss or dizziness when ambulating. Denies fevers of chills. Review of Systems: General: Denies fevers, chills, weight loss or sweats. +Fatigue, weakness ENT: +headaches occur twice daily after tacrolimus- stable Denies changes in vision or doub le vision. Denies hearing loss, nosebleeds, nasal congestion, difficulty swallowing, hoarsen ess or sore throat. Respiratory: +shortness of breath with exertion Denies coughing up blood, excessive sputum, cough, chest discomfort or wheezing. Cardiovascular: No chest pain, lightheadedness,shortness of breath. Gastrointestinal: Denies indigestion, vomiting, +nausea, no vomiting, +abd cramping worsene d this week and frequent loose stools that are no longer responding to imodium. No blood in her stools Musculoskeletal: No joint pain, swelling, stiffness, back pain, arthritis, muscle aches or muscle cramps. Skin: +Rash to upper back, shoulder and chest rash has improved post steroid creams Psychological: +insomnia/restless leg improved with Requip. No [...] Vitals: BP Readings from Last 1 Encounters: 07/07/19 110/63 Pulse Readings from Last 1 Encounters: 07/07/19 97 Resp Readings from Last 1 Encounters: 07/07/19 17 Wt Readings from Last 1 Encounters: 07/07/19 56.2 kg (124 lb) Temp Readings from Last 1 Encounters: 07/07/19 36.6 C (97.8 F) (Oral) Body mass index is 21.97 kg/m. Physical Exam: General:This is a femalein no acute distress. HEENT:PERRL. Sclerae anicteric. Mucosa pink and moist. No ulcers or exudates Skin:Erythematous, raised rash to upper back. Mild redness to shoulders- possibly heali ng rash Chest:Clear to auscultation bilaterally. CV:RRR, no [...] (or 3 results) - Refreshable Recent Labs 07/07/19 0941 WBC 6.66 HB 8.4* HCT 27.7* PLT 239 NEUTROPERC 59.5 LYMPHPERC 17.4* MONOPERC 11.9* BASOPERC 0.2 EOSPERC 9.6* Chemistries: Last 72 Hours (or 3 results): Recent Labs 06/28/19 1500 07/01/19 1149 07/07/19 0941 NA 135* 137 140 K 3.4 3.7 3.0* CL 102 102 105 BICARB 19* 17* 20* BUN 15 13 9 CR 1.07 0.96 0.88 GLU 129* 112* 161* CA 9.1 8.8 8.5* AST 13 8 9 ALT 14 12 9 AP 88 94 99* TBILI 0.9 1.2 0.9 TP 6.5 6.4 6.1* ALB 3.5 3.5 3.1* ANIONGAP 14* 18* 15* ANIONALBCOR 15* 19* 17* Lab Results Component Value Date MG 1.2 07/01/2019 Hematology: Hematologic Malignancy: MDS Conditioning Regimen: FluCyTBI double cord Research study: Kyle "[id number]: A Multicenter, Randomized, Phase III Registration Trial [...] 10 6 per kg Stem Cell Day: +76 Post-transplant: -Day +21 chimerism ordered per study: [...] no prior mutations CBC reviewed and reveals anemia and improved thrombocytopenia. Differential reveals eosinop hilia and monocytosis, likely related to GVHD. 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 Grade 2 skin noted 06/24/2019 BSA 30% and noted impr ovement in steroid cream. Nausea and low appetite with decreased PO intake likely related to upper GI GVHD. Diarrhea and abdominal cramping worsened on 07/07 likely related to lower GI G VHD. 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 (Y/N) y n y y HEENT: Headaches: no associated neuro sxs, vision [...] months ofanticoagulationwith apixiban, end date 04/14/19. HTN, INTERNAL CONTROL MANAGER: home regimen, triamterene/HCTZ. -s/p Lisinopril 5 mg PO daily (05/07-05/08) -DC'd triamterene/HCTZ on 06/03 with low-enzo BP and ongoing renal insufficien cy GI: Nausea, low appetite, likely related to GVHD (see management above) Abdominal cramping and loose BMs, worsened 07/07, likely related to GVHD (see management abov e) Risk of gastritis: -Pepcid 20 mg BID [...] 20 mEq once daily, started 06/13. 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
--- OUTSIDE RECORDS SUMMARY | ~2020-03-12 | XMS | Encounter Summary ---
Demographics + + + | Address | [address] | | | [place] [address] | + + + | Home Phone [...] Team Providers + +------+ + | Care Guide Changer Name | Role | Phone | + +------+ + | Meredith Sanchez | PCP | | + +------+ + Encounter Details +--------+ + + + + | Date | Type | Department | Care Team | Description | +--------+ + + + + | 04/11/ | Outside Sales Inspector | [facility] | Sejal De La Torre | 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 | | Clinics at S | N, DO [address]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) | | | | [facility] [address] | (Primary Dx) | | | | [facility] for | [place], [place] | | | | | Health and Healing, | [address] | | | | | [address] | [phone] | | | | | [place], [place] | | | | | | [address] | | | | | | [phone] | | | +--------+ + + + [...] on filedocumented as of this encounter Results RESEARCH ADDITIONAL TUBES (04/14/2019 11:14 AM PDT) + + + + + + | Component | Value | Ref Range | Performed | Pathologist | | | | | At | Signature | + + + + + + | LABEL ONLY | No Results Expected; | | [facility] | | | - REF LAB | Research Collection Only | | LABORATORY | | | | [...] + + + + + | [facility] | [address] | [place] [address] | | | SERVICES, [facility] | JASON GUTIERREZ | | | + + + + + documented in this encounter Visit Diagnoses + + | Diagnosis | + + | MDS (myelodysplastic syndrome) (HCC) - Primary Myelodysplastic syndrome, unspecified | + + documented in this encounter"
--- OUTSIDE RECORDS SUMMARY | ~2020-03-12 | XMS | Encounter Summary ---
Demographics + + + | Address | [address] | | | [place] [address] | + + + | Home Phone [...] Team Providers + +------+ + | Care Hydrogen Power Plant Engineer Name | Role | Phone | + +------+ + | Meredith Sanchez | PCP | | + +------+ + Encounter Details +--------+ + + + + | Date | Type | Department | Care Team | Description | +--------+ + + + + | 08/16/ | Pharmacy | Pharmacy @ [facility] | | | | 2019 | Visit | [address] | | | | | | [address] Mailcode: | | | | | | [facility] | | | | | | and Healing, | | | | | | [address] | | | | | | [place], [place] | | | | | | [address] | | | +--------+ + + + [...]
--- OUTSIDE RECORDS SUMMARY | ~2020-03-12 | XMS | Encounter Summary ---
Demographics + + + | Address | [address] | | | [place] [address] | + + + | Home Phone [...] Team Providers + +------+ + | Care Facility Operations Manager Name | Role | Phone | + +------+ + | Meredith Sanchez | PCP | | + +------+ + Encounter Details +--------+ + + + + | Date | Type | Department | Care Team | Description | +--------+ + + + + | 02/07/ | Hospital | UNLRELATED BMT | | | | 2019 | Encounter | PROGRAM [address] | | | | | | [address] | | | | | | [place], [place] | | | | | | [address] | | | +--------+ + + + [...]
--- OUTSIDE RECORDS SUMMARY | ~2020-03-12 | XMS | Encounter Summary ---
Demographics + + + | Address | [address] | | | [place] [address] | + + + | Home Phone [...] Author + + + | Author | [facility] | + + + | Organization | [facility] | + + + | Address | Unknown | + + + | Phone | Unavailable | + + + Support + + +---------+ + | Name | Relationship | Address | Phone | + + +---------+ + | Claudia Cota | ECON | Unknown | | + + +---------+ + Care Team Providers + +------+ + | Care Assistant Dean Of Students Name | Role | Phone | + +------+ + | Meredith Sanchez | PCP | | + +------+ + Encounter Details +--------+ + + + + | Date | Type | Department | Care Team | Description | +--------+ + + + + | 05/09/ | Pharmacy | Outpatient Retail | | | | 2019 | Visit | [facility] Pharmacy | | | | | | [address] | | | | | | [address] [place], [place] | | | | | | [address] | | | | | | [phone] | | | +--------+ + + + [...]
--- OUTSIDE RECORDS SUMMARY | ~2020-03-12 | XMS | Encounter Summary ---
Demographics + + + | Address | [address] | | | [place] [address] | + + + | Home Phone [...] Providers + +------+ + | Care Manager Cardiac Name | Role | Phone | + +------+ + | Meredith Sanchez | PCP | | + +------+ + Encounter Details +--------+ + + + + | Date | Type | Department | Care Team | Description | +--------+ + + + + | 06/27/ | Pharmacy | Pharmacy @ [facility] | | | | 2019 | Visit | [address] | | | | | | [address] Mailcode: | | | | | | [facility] | | | | | | and Healing, | | | | | | [address] | | | | | | [place], [place] | | | | | | [address] | | | +--------+ + + + [...]
--- OUTSIDE RECORDS SUMMARY | ~2020-03-12 | XMS | Encounter Summary ---
Demographics + + + | Address | [address] | | | [place] [address] | + + + | Home Phone | | + + + | Preferred Language | Unknown | + + + | Marital Status | Single | + + + | Lutheran Affiliation | NRP | + + + [...] Team Providers + +------+ + | Care Back Shoe Cutter Name | Role | Phone | + +------+ + | Meredith Sanchez | PCP | | + +------+ + Encounter Details +--------+--------+ + + + | Date | Type | Department | Care Team | Description | +--------+--------+ + + + | 08/31/ | Travel | | | | | [...]
--- OUTSIDE RECORDS SUMMARY | ~2020-03-12 | XMS | Encounter Summary ---
Demographics + + + | Address | [address] | | | [place] [address] | + + + | Home Phone [...] Team Providers + +------+ + | Care Pulpwood Cutter Name | Role | Phone | + +------+ + | Meredith Sanchez | PCP | | + +------+ + Reason for Visit + +--------+ + | Reason | Onset | Comments | | | Date | | + +--------+ + | Medication Questions | 08/05/ | Pharmacy can not fill this request | | | 2020 | | + +--------+ + Encounter Details +--------+ + + + + | Date | Type | Department | Care Team | Description | +--------+ + + + + | 08/05/ | Telephone | [facility] | Sejal De La Torre | Medication Questions | | 2020 | | Clinics at S | N, DO [address] [facility] | (Pharmacy can not | | | | [facility] [address] | fill this request) | | | | [facility] for | [place], [place] | | | | | Health and Healing, | [address] | | | | | [facility] [address] | [phone] | | | | | [place], [place] | | | | | | [address] | | | | | | [phone] | | | +--------+ + + + [...] Notes Telephone Encounter - Rosalie Donovan - 08/05/2019 9:47 AM PST Roe from [facility] called and stated that they are not able to fill this medication as it is not a specialty medication and to please send the request to a different pharmacy. If there is any question please call [phone] dapsone 100 mg oral tablet Yes / No T Y W M >M U Take 1 tablet by mouth once daily. Indications: pneumonia prevention documented in this encounte r Plan of Treatment Not on filedocumented as of this encounter Visit Diagnoses Not on filedocumented in this encounter"
--- OUTSIDE RECORDS SUMMARY | ~2020-03-12 | XMS | Encounter Summary ---
Demographics + + + | Address | [address] | | | [place] [address] | + + + | Home Phone [...] + + + | Author | [facility] | + + + | Organization | [facility] | + + + | Address | Unknown | + + + | Phone | Unavailable | + + + Support + + +---------+ + | Name | Relationship | Address | Phone | + + +---------+ + | Claudia Cota | ECON | Unknown | | + + +---------+ + Care Team Providers + +------+ + | Care Dianetic Counselor Name | Role | Phone | + [...] | | | | | (HCC) | [place] | [place] | | | | | Procedures | [address] | [phone] | | | | | [place] | Phone: | Phone: | | | | | PATIENT | [phone] | [phone] | | | | | LEVEL V | Fax: | Fax: | | | | | | [phone] | [phone] | + +--------+ + + + + Encounter Details +--------+ + + + + | Date | Type | Department | Care Team | Description | +--------+ + + + + | 09/28/ | Telephone-S | [facility] | Sejal De La Torre | | | 2020 | cheduled | Clinics at S | N, DO [address] | | | | | [facility] [address] | | | | | Re[place] liana [place] for | [facility] [place] | | | | | Health and Healing, | [address] | | | | | Building [address] | [phone] | | | | | [place], [place] | | | | | | [address] | | | | | | [phone] | | | +--------+ + + + [...] Notes Sejal De La Torre DO - 09/29/2019 1:27 PM PDT 09/29/2019 - Day +161 post transplant Patient agrees to a telephone encounter for today's visit. They understand they may be resp onsible for the balance after insurance processes the claim. Time spent on the call: 22 min. The patients encounter was accomplished via a telephone call today due to COVID-19 precauti onary measures to limit the patient's unnecessary exposure. [facility] Physician: Sejal De La Torre DO Local oncologist: Dr. Sequeira Hematologic Malignancy: MDS Conditioning regimen: FluCyTBI Date of transplant: 04/22/2019 Donor: CBU 1: [id number]/02 match, CBU 2: [id number]/02 match Research study: Kyle "[id number]: A Multicenter, Randomized, Phase III Registration Tr [...] howing dropping counts. --Jun. Moved to [place] ([facility]) -- 10/07/18 showed normal chemistries, Bilirubin 1.4, [...] NPM1, CEBPA, c-KIT, IDH1, IDH2, TP53. 12/24/2018- Vielida however developed a rash to the SQ injection and missed D3, dexamethasone was added for D4-D7. 01/14-01/26/[address] [facility]. Vidaza held. 02/17/2019- seen at [facility] by Dr. De La Torre, no healthy siblings so cord blood is only option -consented to kyle "[id number]: A Multicenter, Randomized, Phase III Registration Tri oh of Transplantation of NiCord, Ex Vivo Expanded, UCB-derived, Stem and Progenitor Cells, vs. Unmanipulated UCB for Patients With Hematological Malignancies". She was randomized to SOC arm. --02/21-03/01 C3 aza.Tolerated well without complications. --04/15-05/18/[address] [facility] for planned flu/cy/tbi conditioned UCB on Kyle study (SOC arm). Main complications included Strep [...] has been tolerating gradual taper. Interval History: This was a phone visit. Nona reports feeling well today. She is current ly taking 20 mg prednisone but has noticed worsening face rash, also noted on her neck. Her arms are improved. Also noticed new URI symptoms with cough and congestion. No fevers. She d enies any other symptoms of GVHD including nausea, vomiting or diarrhea. Her appetite is goo d. She recently moved into her new apartment and is happy with it. She has had some issues w ith her niece due to financial stressors. Review of Systems: General: Denies fevers, chills, weight loss or sweats. +Fatigue. ENT: Denies changes in vision or double vision. Denies hearing loss, nosebleeds, nasal pedro estion, difficulty swallowing, hoarseness or sore throat. Respiratory: Denies coughing up blood, excessive sputum, +cough, No chest discomfort or whe ezing. Cardiovascular: No chest pain, lightheadedness,shortness of breath. Gastrointestinal: Denies indigestion, vomiting, abdominal pain, nausea or vomiting. Musculoskeletal: No joint pain, swelling, stiffness, back pain, arthritis, muscle aches or muscle cramps. +Leg weakness, R>L Skin: +face rash and neck, healing rash on back and chest, arms Psychological: No abnormal anxiety, depression. Remainder of ROS is otherwise negative. Current Medication List Name Sig BECLOMETHASONE 1 MG/ML ORAL SUSPENSION (OUTPATIENT) Take 1 mL by mouth four times daily. DAPSONE 100 MG TABLET Take 1 tablet [...] MG TABLET Take 3 tablets by mouth two times daily. As of 09/01/19: 15mg twice d aily through 09/05, then take 25mg once daily from 09/06-09/12, then take 20mg once daily on and continue until your next visit ROPINIROLE 0.5 MG TABLET Take 1 tablet by mouth once daily in the evening. TACROLIMUS 0.5 MG CAPSULE Effective 08/26/19: Take 0.5 mg by mouth TWICE daily on Thu/Thu/ Fri, and take 0.5 mg by mouth [...] taken for this visit. No Physical Exam exam. Laboratory Results: Labs to be performed outside due to COVID on 10/03 ADD: Na 140, K 4.2, BUN 34, CR 0.9, AST 21, ALT 40, AP 74, BT 1.1 WBC 4.6, Hb 12.5, Plt 198 CMV pending Assessment/Plan: 1. Hematology: History of MDS s/p FluCyTBI double cord (Day 0=04/22/19) She is enrolled in Gamida "[id number]: A Multicenter, Randomized, Phase III Registration Trial [...] no increase in blasts. Normal karyotype. No antwan or mutations noted Due for chimerisms and immune reconstitution panel -to be done locally due to COVID restric tions. The patient verbally re-consented to the new study consent. Subject Name: Nona Hopper Date of : 1965 IRB Number: [id number] Date: 09/29/2019 Visit name: Day 180 Due to COVID-19 precautions, research procedures for this visit were modified and the [facility] was informed on the changes. At the direction of the civil rights investigator, the followin g modifications were made: Local Labs: Collected at Local Location Physical Exam: Not Collected Vitals: Not Collected Office Visit: Conducted Virtually/ No Modifications ePRO/ Questionnaires: Collected via online portal GVHD assessments: Collected via telephone 2. GVHD: Probable skin and upper/lower GI [...] and was restarted on prednisone on 08/12/19 as below -Steroids: Prednisone taper as follows: 08/30-09/05: Take 15mg twice daily 09/06-09/12: Take 25mg once daily 09/13- 20 mg daily. Noticed flare in face, neck, chest (BSA 25%) not responding to topical s -Increase prednisone to 30 mg daily 09/28-, plan to decrease to 20 mg daily on 10/12 if impro vement -Prophylaxis with tacrolimus and MMF per Kyle protocol -Tacrolimus, continue with goal 5-10 -s/p MMF 1 gm PO TID D-3 to D+60 (stopped on 06/21/2019) Kyle Simpson phase 3 (IRB 62324) Acute GVHD Staging Complete on study visit [...] mL diarrhea/day 2 25-50% BSA 3.1-6 mg/dL 2799-3016 mL diarrhea/day 3 >50% BSA Generalized erythroderma [...] toxicity:n TPN:n Infection:y Other (describe):n Complete Values: BSA%:20 Bullae (Y/N):n TBili: 0.5 24H Diarrhea Vol: 2 BMs Severe abd pain (Y/N): n Ileus (Y/N):n Assign Stage: 1 0 Biopsy not c/w GVHD, +colitis Biopsy not c/w GVHD Presumptive/ Confirmed Dx of aGVHD? (Y/N) Y n n n Kyle Simpson phase 3 NIH Consensus - Chronic GVHD Scoring: Day 100, 180, 270, 365 IRB 68964 Score 1(skin) Performance Scoring Not Present 0 Mild 1<< Moderate 2 Severe 3 System Score (0-3) Skin: 1 Mouth: 0 Eyes: 0 GI Tract: 0 Liver: 0 Lungs: 0 Joints and Fascia: 0 Genital Tract: 0 Other indicator, manifestation, or complication: Indicator Y/N Esophageal stricture or web: N Ascites (serositis): n Myasthenia Gravis: n Polymyositis: n Platelets >100,000/ul: n Pericardial Effusion: n Nephrotic syndrome: n Cardiomyopathy: [...] range PCR from BAL on 07/11 negative Influenza vaccine administered 07/28/19 and Prevnar#1 administered on 07/28/19. 4. FEN: Labs reviewed Continue oral mag and KCL 5. GI: Risk of gastritis: Continue omeprazole [...] strength training exercises and walking at home Sejal De La Torre DO Systems Integration Engineerrotor blade installer [facility] documented in thi s encounter Plan of Treatment Not on filedocumented as of this encounter Visit Diagnoses + + | Diagnosis | + + | 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
--- OUTSIDE RECORDS SUMMARY | ~2020-03-12 | XMS | Encounter Summary ---
Demographics + + + | Address | [address] | | | [place] [address] | + + + | Home Phone [...] Team Providers + +------+ + | Care Wharf Hand Name | Role | Phone | + +------+ + | Meredith Sanchez | PCP | | + +------+ + Reason for Visit + + + | Reason | Comments | + + + | Lab Draw | | + + + Other (Routine) + +--------+ + + + + | Status | Reason | Specialty | Diagnoses / | Referred By | Referred To | | | | | Procedures | Contact | Contact | + +--------+ + + + + | Authorized | | Hematology | Diagnoses | Wil | [facility] | | | | 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 | Sejal Meadows, | [facility] [address] | | | | | (myelodyspla | DO [address] | | | | | stic | Stephanei Valverde | [facility] | | | | | syndrome) | Park | Health and | | | | | (HCC) | [place], [place] | Healing, | | | | | | [address] | [address] | | | | | | Phone: | [place], [place] | | | | | | [phone] | [address] | | | | | | Fax: | Phone: | | | | | | [phone] | [phone] | | | | | | | Fax: | | | | | | | [phone] | + +--------+ + + + + Encounter Details +--------+ + + + + | Date | Type | Department | Care Team | Description | +--------+ + + + + | 08/04/ | Clinical | Laboratory at [facility] | | Lab Draw | | 2020 | Support | [address] | | | | | Staff | [facility] | | | | | | and Healing, | | | | | | [address] | | | | | | [place], [place] | | | | | | [address] | | | | | | [phone] | | | +--------+ + + + [...] documented as of this encounter Progress Notes Basilia Isabel RN - 08/04/2019 1:20 PM PST22 gauge PIV placed in patient s right f orearm, using an IV start kit. PIV has blood return, but flow not adequate for blood draw; blood ultimately drawn peripherally. Labs drawn and sent. PIV flushed with 10 mL NS without any problems. Sterile transparent dressing applied. Patient tolerated procedure well. documented in thi s encounter Plan of Treatment Not on filedocumented as of this encounter Procedures + +--------+ + + + | Procedure Name | Priori | Date/Time | Associated Diagnosis | Comments | | | ty | | | | + +--------+ + + + | [facility] - MAGNESIUM, | Routin | 08/04/2019 | S/P cord blood | Results for this | | PLASMA | e | 1:18 PM | transplantation MDS | procedure are in the | | | | PST | (myelodysplastic | results section. | | | |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) | | + +--------+ + + + | [facility] - PHOSPHORUS, | Routin | 08/04/2019 | S/P cord blood | Results for this | | PLASMA | e | 1:18 PM | transplantation MDS | procedure are in the | | | | PST | (myelodysplastic | results section. | | | |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) | | + +--------+ + + + | [facility] - LDH TOTAL, | Routin | 08/04/2019 | S/P cord blood | Results for this | | PLASMA | e | 1:18 PM | transplantation MDS | procedure are in the | | | | PST | (myelodysplastic | results section. | | | | | syndrome) ([facility]) | | + +--------+ + + + | RBC MORPHOLOGY | Routin | 08/04/2019 | S/P cord blood | Results for this | | | e | 1:18 PM | transplantation MDS | procedure are in the | | | | PST | (myelodysplastic | results section. | | | | | syndrome) ([facility]) | | + +--------+ + + + | CBC AND AUTO DIFF | Routin | 08/04/2019 | S/P cord blood | Results for this | | | e | 1:18 PM | transplantation MDS | procedure are in the | | | | PST | (myelodysplastic | results section. | | | | | syndrome) ([facility]) | | + +--------+ + + + | [facility] - COMPLETE | Routin | 08/04/2019 | S/P cord blood | Results for this | | METABOLIC SET | e | 1:18 PM | transplantation MDS | procedure are in the | | | | PST | (myelodysplastic | results section. | | | | | syndrome) ([facility]) | | + +--------+ + + + | [facility] CBC W | Routin | 08/04/2019 | S/P cord blood | Results for this | | DIFFERENTIAL | e | 1:18 PM | transplantation MDS | procedure are in the | | | | PST | (myelodysplastic | results section. | | | | | syndrome) ([facility]) | | + +--------+ + + + | TACROLIMUS, WHOLE | Routin | 08/04/2019 | S/P cord blood | Results for this | | BLOOD | e | 1:18 PM | transplantation MDS | procedure are in the | | | | PST | (myelodysplastic | results section. | | | | | syndrome) ([facility]) | | + +--------+ + + + | BLOOD BANK HOLD TUBE | Routin | 08/04/2019 | MDS | Results for this | | - DON | e | 1:18 PM | (myelodysplastic | procedure are in the | | | | PST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) | results section. | | T PROCESS | | | | | + +--------+ + + + documented in this encounter Results RBC MORPHOLOGY (08/04/2019 1:18 PM PST) + + + + + [...] LABORATORY | [address] | [place] [address] | | | [facility] | | | | | [facility] + [facility]ING | | | | + + + + + CBC AND AUTO DIFF (08/04/2019 1:18 PM PST) + + + + + + | Component | Value | Ref Range | Performed | Pathologist | | | | | At | Signature | + + + + + + | WHITE CELL | 4.56 | 3.50 - 10.80 | [facility] | | | COUNT | | K/cu mm | LABORATORY | | | | | | SERVICES, | | | | | | [facility] + | | | | | | [facility]ALING | | + + + + + + | RED CELL | 3.38 (L) | 4.00 - 5.20 | [facility] | | | COUNT | | M/cu mm | LABORATORY | | | | | | SERVICES, | | | | | | [facility] | | | [facility] + | | | | | | HEALING | | + + + + + + | HEMOGLOBIN | 10.3 (L) | 12.0 - 16.0 | [facility] | | | | | g/dL | LABORATORY | | | | | | SERVICES, | | | | | | [facility] | | | | [facility] + | | | | | | HEALING | | + + + + + + | HEMATOCRIT | 32.5 (L) | 36.0 - 46.0 % | [facility] | | | | | | LABORATORY | | | | | | SERVICES, | | | | | | [facility] | | | | [facility] + | | | | | | HEALING | | + + + + + + | MCV | 96.2 | 80.0 - 100.0 fL | [facility] [...] + + + | RDW SD | 68.2 (H) | 35.1 - 46.3 fL | [facility] | | | | | | LABORATORY | | | | | | SERVICES, | | | | | | [facility] | | [facility] + | | | | | | HEALING | | + + + + + + | PLATELET | 106 (L)Comment: | 150 - 400 K/cu | [...] + + + + | NEUTROPHIL | 74.6 (H) | 50.0 - 70.0 % | [facility] | | | % | | | LABORATORY | | | | | | SERVICES, | | | | | | [facility] | | [facility] | | | [facility] + | | | | | | HEALING | | + + + + + + | LYMPHOCYTE | 12.7 (L) | 18.0 - 42.0 % | [facility] | | | % | | | LABORATORY | | | | | | SERVICES, | | | | | | [facility] | | | | | | [facility] + | | | | | | HEALING | | + + + + + + | MONOCYTE % | 9.2 (H) | 3.5 - 9.0 % | [facility] | | | | | | LABORATORY | | | | | | SERVICES, | | | | | | [facility] | | [facility] | | | [facility] + | | | | | | HEALING | | + + + + + + | EOS % | 2.0 | 1.0 - 3.0 % | [facility] [...] + + + + | IG% | 1.5 (H) | 0.0 - 1.0 % | [...] + + + + | LYMPHOCYTE | 0.58 (L) | 1.00 - 4.80 | [facility] | | | # | | K/cu mm | LABORATORY | | | | | | SERVICES, | | | | | | [facility] | | | | [facility] + | | | | | | HEALING | | + + + + + + | MONOCYTE # | 0.42 | 0.10 - 0.90 | [facility] | [...] | + + + + + | [facility] | [address] | [place] [address] | | | SERVICES, [facility] | | | | | [facility] + [facility]AL[facility] | | | | + + + + + BLOOD BANK HOLD TUBE - DON T PROCESS (08/04/2019 1:18 PM PST) + + + + + [...] [facility] | [address] | [place] [address] | | | SERVICES, | [address] | | | | TRANSFUSION MEDICINE | | | | + + + + + [facility] - COMPLETE METABOLIC SET (08/04/2019 1:18 PM PST) + +---------+ + + + | Component | Value | Ref Range | Performed | Pathologist | | | | | At | Signature | + +---------+ + + + | GLUCOSE, | 133 (H) | 70 - 99 mg/dL | [...] +---------+ + + + | CREATININE | 0.84 | 0.60 - 1.10 | [facility] | [...] | | | LABORATORY | | | [facility] | | | SERVICES, | | | [...] +---------+ + + + | POTASSIUM, | 4.7 | 3.4 - 5.0 | [facility] | [...] +---------+ + + + | CALCIUM, | 8.6 [...] +---------+ + + + | TOTAL | 6.7 [...] +---------+ + + + | AST(SGOT) | 17 | <=41 U/L | [facility] | | | | | | LABORATORY | | | | | | SERVICES, | | | | | | [facility] | | | | | | [facility] + | | | | | | HEALING | | + +---------+ + + + | ALT (SGPT) | 29 | <=60 U/L | [facility] | | [...] +---------+ + + + | GLOBULIN | 3.4 | 2.3 - 3.5 gm/dL | [facility] [...] MDRD equation recommended by the National | [facility] | | Kidney Disease Education Program. [...] | + + + + + | [facility] | [address] | [place] [address] | | | SERVICES, [facility] | | | | | [facility] + HEALING | | | | + + + + + [facility] - LDH TOTAL, PLASMA (08/04/2019 1:18 PM PST) + +---------+ + + + | Component | Value | Ref Range | Performed | Pathologist | | | | | At | Signature | + +---------+ + + + | LD TOTAL, | 209 | <=250 U/L | [facility] | | [...] [facility] | [address] | [place] [address] | | | [facility] | | | | | [facility] + HEALING | | | | + + + + + CH - MAGNESIUM, PLASMA (08/04/2019 1:18 PM PST) + +---------+ + + + | Component | Value | Ref Range | Performed | Pathologist | | | | | At | Signature | + +---------+ + + + | MAGNESIUM,P | 1.5 (L) | 1.6 - 2.6 mg/dL | [facility] | | | LASMA | | | LABORATORY | | | | | | [facility], | | | | | | [facility] | | | | | | [...] | + + + + + | [facility] | [address] | [place] [address] | | | [facility] | | | | | [facility] + HEALING | | | | + + + + + [facility] - PHOSPHORUS, PLASMA (08/04/2019 1:18 PM PST) + +-------+ + + + | Component | Value | Ref Range | Performed | Pathologist | | | | | At | Signature | + +-------+ + + + | PHOSPHORUS, | 3.1 | 2.4 - 4.7 mg/dL | [facility] [...] [facility] | [address] | [place] [address] | | | SERVICES, [facility] | | | | | HE[facility] + HEALING | | | | + + + + + TACROLIMUS, WHOLE BLOOD (08/04/2019 1:18 PM PST) + +-------+ + + + | Component | Value | Ref Range | Performed | Pathologist | | | | | At | Signature | + +-------+ + + + | TACROLIMUS | 13.6 | 5.0 - 15.0 | [facility] | [...] | Test performed by immunoassay using [employer] Director i2000. . | [facility] | | Samples [...] | + + + + + | [facility] | [address] | [place] [address] | | | SPECIAL MENG | JASON [...]
--- OUTSIDE RECORDS SUMMARY | ~2020-03-12 | XMS | Encounter Summary ---
Demographics + + + | Address | [address] | | | [place] [address] | + + + | Home Phone [...] Team Providers + +------+ + | Care Construction Project Mgr Name | Role | Phone | + +------+ + | Meredith Sanchez | PCP | | + +------+ + Reason for Visit + +--------+ + | Reason | Onset | Comments | | | Date | | + +--------+ + | Covid19 Screening | 02/21/ | | | | 2019 | | + +--------+ + Encounter Details +--------+ + + + + | Date | Type | Department | Care Team | Description | +--------+ + + + + | 02/21/ | Telephone | [facility] | Sejal De La Torre | Covid19 Screening | | 2020 | | Clinics at S | N, DO [address] | | | | | [place] [address] | [facility] | | | | | [facility] for | [place], [place] | | | | | Health and Healing, | [address] | | | | | [address] | [phone] | | | | | [place], [place] | | | | | | [address] | | | | | | [phone] | | | +--------+ + + + [...] this encounter Miscellaneous Notes Telephone Encounter - OwenMarioAMITA - 02/22/2020 9:31 AM PDTWas unable to contact pt f or COVID screening or Virtual Rooming prior to phone/virtual visit. Message left explaining the below day of expectations and resources. ? For all eVisits: o Expect provider contact + or - 20 min from appt start time ? For virtual visits only: o Log into Bridg ahead of time o Test denise/equipment functionality o Download Zoom Denise, no account needed o At appt time, they will need to follow the steps outlined in the "[facility] Virtual Visits" gu tai at [email or web address] o Provided below Web Geo Serviceshart support information ? Advised pt to call back with any questions regarding appt MyChart Support: Thu-Thu 8a-5p [phone] [facility] documented in this enco unter Plan of Treatment Not on filedocumented as of this encounter Visit Diagnoses Not on filedocumented in this encounter
--- OUTSIDE RECORDS SUMMARY | ~2020-03-12 | XMS | Encounter Summary ---
Demographics + + + | Address | [address] | | | [place] [address] | + + + | Home Phone [...] Team Providers + +------+ + | Care Digital Media Analyst Name | Role | Phone | + +------+ + | Meredith Sanchez | PCP | | + +------+ + Reason for Visit + + + | Reason | Comments | + + + | Lab Draw | Review & sign HLA typing orders | + + + Encounter Details +--------+ + + + + | Date | Type | Department | Care Team | Description | +--------+ + + + + | 11/30/ | Women'S Basketball Coach | [facility] | jaqui Sejal | 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 | | Clinics at S | N, DO [address]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) | | | | [place] [address] | (Primary Dx) | | | | [facility] for | [place], [place] | | | | | Health and Healing, | [address] | | | | | [address] | [phone] | | | | | [place], [place] | | | | | | [address] | | | | | | [phone] | | | +--------+ + + + [...] on filedocumented as of this encounter Results [facility] BM RECIPIENT PANEL, DRAW & HOLD ONLY [...] [facility] | [address] | [place] [address] | | | SERVICES, CORE | [address] | | | + + + + + documented in this encounter Visit Diagnoses + + | Diagnosis | + + | MDS (myelodysplastic syndrome) (HCC) - Primary Myelodysplastic syndrome, unspecified | + + documented in this encounter"
--- OUTSIDE RECORDS SUMMARY | ~2020-03-12 | XMS | Encounter Summary ---
Demographics + + + | Address | [address] | | | [place] [address] | + + + | Home Phone [...] Team Providers + +------+ + | Care Contracts Manager Name | Role | Phone | + +------+ + | Meredith Sanchez | PCP | | + +------+ + Encounter Details +--------+--------+ + + + | Date | Type | Department | Care Team | Description | +--------+--------+ + + + | 05/19/ | Travel | | | | | [...]
--- OUTSIDE RECORDS SUMMARY | ~2020-03-12 | XMS | Encounter Summary ---
Demographics + + + | Address | [address] | | | [place] [address] | + + + | Home Phone [...] Team Providers + +------+ + | Care Irrigating Pump Operator Name | Role | Phone | + +------+ + | Meredith Sanchez | PCP | | + +------+ + Reason for Visit + +--------+ + | Reason | Onset | Comments | | | Date | | + +--------+ + | Symptom Management | 03/12/ | leg and feet swelling once again | | | 2020 | | + +--------+ + Encounter Details +--------+ + + + + | Date | Type | Department | Care Team | Description | +--------+ + + + + | 03/12/ | Telephone | [facility] | Sejal De La Torre | Symptom Management | | 2020 | | Clinics at S | N, DO [address] | (leg and feet | | | | [facility] [address] [facility] [address] | swelling once again) | | | | [facility] for | [place], [place] | | | | | Health and Healing, | [address] | | | | | [address] | [phone] | | | | | [place], [place] | | | | | | [address] | | | | | | [phone] | | | +--------+ + + + [...] Encounter - Maricruz Morataya RN - 03/12/2020 3:23 PM PDTCall to Nona Hopper mr # [id number] she stated she is very SOB, increasing last 2 weeks. Legs are swollen right leg m ore so. She used lasix before and it helped, she wonders if she should have it again. She uses [facility] in [place] Thank you, Maricruz triage [id number] signed by Maricruz Morataya RN at 03/12/2020 3:27 P M PDTTelephone Encounter - Rosalie Donovan - 03/12/2020 3:02 PM PDTPatient called in and left a voice mail message stating that the swelling in her feet and legs are back and it is wors e in her right leg than her left and to please give her a call back. documented in this encounter Plan of Treatment Not on filedocumented as of this encounter Visit Diagnoses Not on filedocumented in this encounter"
--- OUTSIDE RECORDS SUMMARY | ~2020-03-12 | XMS | Encounter Summary ---
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) | Melly | [facility] and | | | | | (HCC) | [facility] [place] | Healing, | | | | | Procedures | [address] | [address] | | | | | [place] | Phone: | [place], [place] | | | | | OFFICE/OUTPT | [phone] | [address] | | | | | | Fax: | Phone: | | | | | VISIT,EST,LE | [phone] | [phone] | | | | | VL [place] | | Fax: | | | | | EST PATIENT | | [phone] | | | | | LEVEL V | | | +--------+--------+ + + + + Encounter Details +--------+ + + + + | Date | Type | Department | Care Team | Description | +--------+ + + + + | 06/24/ | Clinical | Laboratory at [facility] | | Lab Draw | | 2019 | Support | [address] | | | | | Staff | [facility] | | | | | | and Healing, | | | | | | [address] | | | | | | [place], [place] | | | | | | [address] | | | | | | [phone] | | | +--------+ + + + [...] documented as of this encounter Progress Notes Avelina Busby RN - 06/24/2019 7:20 AM PSTGroshong accessed per protocol. Good blood re turn noted. Appropriate waste discarded. Labs drawn and sent. Gabriel pulse flushed with 20 mL NS. 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 | | | | | syndrome) ([facility]) | | + +--------+ + + + | CBC AND AUTO DIFF | Routin | 06/24/2019 | S/P cord blood | Results for this | | | e | 7:16 AM | transplantation MDS | procedure are in the | | | | PST | (myelodysplastic | results section. | | | | | syndrome) ([facility]) | | + +--------+ + + + | [facility] - COMPLETE | Routin | 06/24/2019 | S/P cord blood | Results for this | | METABOLIC SET | e | 7:16 AM | transplantation MDS | procedure are in the | | | | PST | (myelodysplastic | results section. 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) | | + +--------+ + + + documented in this encounter Results CBC AND AUTO DIFF (06/24/2019 7:16 AM PST) + + + + + + | Component | Value | Ref Range | Performed | Pathologist | | | | | At | Signature | + + + + + + | WHITE CELL | 5.22 | 3.50 - 10.80 | [facility] | | | COUNT | | K/cu mm | LABORATORY | | | | | | SERVICES, | | | | | | [facility] + | | | | | | [facility]ALING | | + + + + + + | RED CELL | 3.55 (L) | 4.00 - 5.20 | [facility] | | | COUNT | | M/cu mm | LABORATORY | | | | | | SERVICES, | | | | | | [facility] | [facility] + | | | | | | [facility]ALING | | + + + + + + | HEMOGLOBIN | 10.1 (L) | 12.0 - 16.0 | [facility] | | | | | g/dL | LABORATORY | | | | | | SERVICES, | | | | | | [facility] | [facility] + | | | | | | HEALING | | + + + + + + | HEMATOCRIT | 31.2 (L) | 36.0 - 46.0 % | [facility] | | | | | | LABORATORY | | | | | | SERVICES, | | | | | | [facility] | [facility] + | | | | | | HEALING | | + + + + + + | MCV | 87.9 | 80.0 - 100.0 fL | [facility] [...] + + + | RDW SD | 52.5 (H) | 35.1 - 46.3 fL | [facility] | | | | | | LABORATORY | | | | | | SERVICES, | | | | | | [facility] | [facility] + | | | | | | HEALING | | + + + + + + | PLATELET | 139 (L) | 150 - 400 K/cu | [...] + + + + | NEUTROPHIL | 56.4 | 50.0 - 70.0 % | [facility] | | | % | | | LABORATORY | | | | | | SERVICES, | | | | | | [facility] | [facility] + | | | | | | HEALING | | + + + + + + | LYMPHOCYTE | 18.0 | 18.0 - 42.0 % | [facility] [...] + + + | EOS % | 10.3 (H) | 1.0 - 3.0 % | [facility] | | | | | | LABORATORY | | | | | | SERVICES, | | | | | | [facility] | [facility] + | | | | | | HEALING | | + + + + + + | BASO % | 0.6 | 0.0 - 2.0 % | [facility] | | | | | | LABORATORY | | | | | | SERVICES, | | | | | | [facility] | [facility] + | | | | | | HEALING | | + + + + + + | IG% | 1.1 (H) | 0.0 - 1.0 % | [facility] | | | | | | LABORATORY | | | | | | SERVICES, | | | | | | [facility] | [facility] + | | | | | | HEALING | | + + + + + + | NEUTROPHIL | 2.94 | 1.80 - 7.70 | [facility] | | | # | | K/cu mm | LABORATORY | | | | | | SERVICES, | | | | | | [facility] | [facility] + | | | | | | HEALING | | + + + + + + | NEUTROPHIL | 2.94Comment: Preliminary | 1.80 - 7.70 | [facility] [...] + + + + | LYMPHOCYTE | 0.94 (L) | 1.00 - 4.80 | [facility] | | | # | | K/cu mm | LABORATORY | | | | | | SERVICES, | | | | | | [facility] | [facility] + | | | | | | HEALING | | + + + + + + | MONOCYTE # | 0.71 | 0.10 - 0.90 | [facility] | | | | | K/cu mm | LABORATORY | | | | | | SERVICES, | | | | | | [facility] | | [facility] + | | | | | | HEALING | | + + + + + + | EOS # | 0.54 (H) | 0.00 - 0.50 | [facility] | | | | | K/cu mm | LABORATORY | | | | | | SERVICES, | | | | | | [facility] | [facility] + | | | | | | HEALING | | + + + + + + | BASO # | 0.03 | 0.00 - 0.10 | [...] SERVICES, | | | | | | [facility] | | | | | [...] | included in the neutrophil count. | [facility] | [facility] + | | | [facility] | + + + + + + + + | Performing | Address | City/State/Zipcode | Phone Number | | Organization | | | | + + + + + | [facility] | [address] | [place] [address] | | | SERVICES, [facility] | | | | [facility] + HEALING | | | | + + + + + [facility] - COMPLETE METABOLIC SET (06/24/2019 7:16 AM PST) + +---------+ + + + | Component | Value | Ref Range | Performed | Pathologist | | | | | At | Signature | + +---------+ + + + | GLUCOSE, | 127 (H) | 70 - 99 mg/dL | [facility] | | | PLASMA | | | LABORATORY | | | (LAB) | | | SERVICES, | | | | | | [facility] | [facility] | | [facility] + | | | | | | HEALING | | + +---------+ + + + | BUN, PLASMA | 11 | 6 - 20 mg/dL | [facility] | | | (LAB) | | | LABORATORY | | | | | | SERVICES, | | | | | | [facility] | | [facility] + | | | | | | HEALING | | + +---------+ + + + | CREATININE | 0.92 | 0.60 - 1.10 | [facility] | [...] | | | LABORATORY | | | POLISH | | | SERVICES, | | | [...] + + + | TOTAL CO2, | 20 (L) | 21 - 32 mmol/L | [facility] | | | PLASMA | | | LABORATORY | | | (LAB) | | | SERVICES, | | | | | | [facility] | | | [facility] + | | | | | | HEALING | | + +---------+ + + + | CALCIUM, | 9.3 | 8.6 - 10.2 | [...] +---------+ + + + | BILIRUBIN | 1.2 | 0.3 - 1.2 mg/dL | [facility] | | | TOTAL | | | LABORATORY | | | | | | SERVICES, | | | | | | [facility] | | | [facility] + | | | | | | HEALING | | + +---------+ + + + | TOTAL | 6.6 [...] + + + | ALK PHOS | 81 | 42 - 98 U/L | [facility] | | | | | | LABORATORY | | | | | | SERVICES, | | | | | | [facility] | | | [facility] + | | | | | | HEALING | | + +---------+ + + + | AST(SGOT) | 14 [...] +---------+ + + + | BUN/CREATIN | 12 | 8 - 25 | [facility] | [...] +---------+ + + + | ALBUMIN/BURTON | 1.4 | 0.9 - 2.0 | [facility] | [...] equation recommended by the National | [facility] | | Kidney Disease Education Program. [...] | [facility] | [address] | [place] [address] | | | SERVICES, [facility] | | | | | [facility] + HEALING | | | | + + + + + [facility] - LDH TOTAL, PLASMA (06/24/2019 7:16 AM PST) + +---------+ + + + | Component | Value | Ref Range | Performed | Pathologist | | | | | At | Signature | + +---------+ + + + | LD TOTAL, | 163 | <=250 U/L | [facility] | | [...] + + + + | [facility] | [address] | [place] [address] | | | SERVICES, [facility] | | | | | [facility] + HEALING | | | | + + + + + [facility] - MAGNESIUM, PLASMA (06/24/2019 7:16 AM PST) + +---------+ + + + [...] [facility] | [address] | [place] [address] | | | [facility], [facility] | | | | | [facility] + HEALING | | | | + + + + + [facility] - PHOSPHORUS, PLASMA (06/24/2019 7:16 AM PST) + +-------+ + + + | Component | Value | Ref Range | Performed | Pathologist | | | | | At | Signature | + +-------+ + + + | PHOSPHORUS, | 3.6 | 2.4 - 4.7 mg/dL | [facility] | | | PLASMA | | | LABORATORY | | | (LAB) | | | [facility], | | | | | | CENTER [...] | [facility] | [address] | [place] [address] | | | [facility], [facility] | | | | | [facility] + HEALING | | | | + + + + + TACROLIMUS, WHOLE BLOOD (06/24/2019 7:16 AM PST) + +-------+ + + + | Component | Value | Ref Range | Performed | Pathologist | | | | | At | Signature | + +-------+ + + + | TACROLIMUS | 11.3 | 5.0 - 15.0 | [facility] | [...] | Test performed by immunoassay using [employer]att Point Of Care Technician i2000. . | [facility] | [...] + + + + | [facility] | [address] | [place] [address] | | | SERVICES, SPECIAL | PARK [...]
--- OUTSIDE RECORDS SUMMARY | ~2020-03-12 | XMS | Encounter Summary ---
Demographics + + + | Address | [address] | | | [place] [address] | + + + | Home Phone [...] Team Providers + +------+ + | Care Backshoe Person Name | Role | Phone | + +------+ + | Meredith Sanchez | PCP | | + +------+ + Encounter Details +--------+ + + + + | Date | Type | Department | Care Team | Description | +--------+ + + + + | 05/27/ | Pharmacy | Specialty Pharmacy | | | | 2019 | Visit | Services [address] | | | | | | [address] | | | | | | [place], [place] | | | | | | [address] | | | | | | [phone] | | | +--------+ + + + [...]
--- OUTSIDE RECORDS SUMMARY | ~2020-03-12 | XMS | Encounter Summary ---
Demographics + + + | Address | [address] | | | [place] [address] | + + + | Home Phone [...] Author + + + | Author | [facility] | + + + | Organization | [facility] | + + + | Address | Unknown | + + + | Phone | Unavailable | + + + Support + + +---------+ + | Name | Relationship | Address | Phone | + + +---------+ + | Claudia Cota | ECON | Unknown | | + + +---------+ + Care Team Providers + +------+ + | Care Lead Software Architect Name | Role | Phone | + +------+ + | Meredith Sanchez | PCP | | + +------+ + Encounter Details +--------+ + + + + | Date | Type | Department | Care Team | Description | +--------+ + + + + | 05/20/ | M[facility] Smoking Pipe | [facility] | Sejal De La Torre | Hx of allogeneic | | 2019 | | Clinics at S | N, DO [address] [facility] | stem cell transplant | | | | [facility] [address] | (HCC) (Primary Dx) | | | | [facility] for | [place], [place] | | | | | Health and Healing, | [address] | | | | | [address] | [phone] | | | | | [place], [place] | | | | | | [address] | | | | | | [phone] | | | +--------+ + + + [...] of this encounter Results LYMPHOCYTE ACTIVATION(LYMPH RECONSTITUTION/ACTIVATE),BLOOD (05/24/2019 9:36 AM PST) [...] % of | [facility] | | | -[id number]+) | | Lymphs | LABORATORY | | | % | | | SERVICES, | | | | | | SPECIAL IMM | | | | | | + COAG | | + + + + + + | T-REG(4+127 | 3 | Cells/uL | [facility] | | | -[id number]+) | | | LABORATORY | | | [...] + + + + | KAPPA/LAMBD | Comment: Not applicable | | [facility] [...] electronically signed by Sb Ybarra MD,PhD | [facility] | | 05/28/2019 7:21 PM My electronic [...] | | | TCR a/b TCR g/d [place] Lambda (Analyte specific reagents are | | | used in many laboratory tests necessary for standard medical care. | | | This test was developed and its performance characteristics determined | | | by [employer]. 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
--- OUTSIDE RECORDS SUMMARY | ~2020-03-12 | XMS | Encounter Summary ---
Demographics + + + | Address | [address] | | | [place] [address] | + + + | Home Phone | | + + + | Preferred Language | Unknown | + + + | Marital Status | Single | + + + | Evangelical Affiliation | NRP | + + + [...] Team Providers + +------+ + | Care Windows Deployment Technician Name | Role | Phone | [...] | | | | | (HCC) | [place], [place] | [place], [place] | | | | | Procedures | [address] | [address] | | | | | [place] | Phone: | Phone: | | | | | OFFICE/OUTPT | [phone] | [phone] | | | | | | Fax: | Fax: | | | | | VISIT,VENKATESH,LE | [phone] | [phone] | | | | | VL IV | | | +--------+--------+ + + + + Encounter Details +--------+---------+ + + + | Date | Type | Department | Care Team | Description | +--------+---------+ + + + | 05/24/ | Office | [facility] | Apple Bergeron, | 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 | [place], [place] | cord blood | | | | Health and Healing, | [address] | transplantation | | | | Building [address] | [phone] | | | | | [place], [place] | | | | | | [address] | | | | | | [phone] | | | +--------+---------+ + + + [...] + + + | Blood Pressure | 113/69 | 05/24/2019 9:41 AM | | | | | PST | | + + + + + | Pulse | 96 | 05/24/2019 9:41 AM | | | | | PST | | + + + + + | Temperature | 36.9 C (98.5 F) | 05/24/2019 9:41 AM | | | | | PST | | + + + + + | Respiratory Rate | 16 | 05/24/2019 9:41 AM | | | | | PST | | + + + + + | Oxygen Saturation | 98% | 05/24/2019 9:41 AM | | | | | PST | | + + + + + | Inhaled Oxygen | - | - | | | Concentration | | | | + + + + + | Weight | 63 kg (139 lb) | 05/24/2019 9:41 AM | | | | | PST [...] documented as of this encounter Progress Notes Apple Bergeron PA - 05/24/2019 10:10 AM PSTFormatting of this note might be different f rom the original. 05/24/2019 [facility] Physician: Sejal De La Torre DO Local oncologist: Dr. Sequeira Hematologic Malignancy: MDS Conditioning regimen: FluCyTBI Date of transplant: 04/22/2019 Donor: CBU 1: [id number]/02 match, CBU 2: [id number]/02 match Research study: Kyle "[id number]: A Multicenter, Randomized, Phase III Registration Tr [...] s howing dropping counts. --Jun. Moved to [place] ([facility]) -- 10/07/18 showed normal chemistries, [...] for D4-D7. 01/14-01/26/2019 admitted for zoster to [facility]. Vidaza held. 02/17/2019- seen at [facility] by Dr. De La Torre, no healthy siblings so cord blood is only option -consented to kyle "[id number]: A Multicenter, Randomized, Phase III Registration Tri hi of Transplantation of NiCord, Ex Vivo Expanded, UCB-derived, Stem and Progenitor Cells, vs. Unmanipulated UCB for Patients With Hematological Malignancies". She was randomized to SOC arm. --02/21-03/01 C3 aza.Tolerated well without complications. --04/15-05/18/2019 admitted to [facility] for planned flu/cy/tbi conditioned UCB on Gamida study (SOC arm). 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 Nona Hopper is a 53 y.o. female with hx of MDS, currently day +32, s/p Flu/cy/TBI co nditioned URD cord on gamida trial -on SOC arm. Interval History: Comes to clinic today for her routine scheduled visit. She is accompanied by her caregiver. She is doing well overall but remains very fatigued. She has mild nausea associated with p ills and is using compazine. Her appetite is improving a little and she's been eating 3 sma ll meals/day and drinking ~1.5L/day. She denies diarrhea the last 2 days. Denies rash or fevers. Review of Systems: General: Denies fevers, chills, [...] indigestion, vomiting, + nausea, constipation, abdominal pain, julia rrhea, bloody stools or dark tarry stools. Musculoskeletal: [...] for constipation. TACROLIMUS 0.5 MG CAPSULE Effective 05/20/2019: Take 1mg by mouth every morning and 1mg ev carlos evening. Combine 0.5mg and 1mg capsules to make your current dose. HOLD on days of clini c and bring with you to take AFTER your labs are drawn. Indications: prevention of graft jaxon rosanna host TACROLIMUS 1 MG CAPSULE Effective 05/20/2019: Take 1mg by mouth every morning and 1mg ever y evening. Combine 0.5mg and 1mg capsules to make your current dose. HOLD on days of clinic and bring with you to take AFTER your labs are drawn. Indications: prevention of graft versu s host disease TRIAMCINOLONE ACETONIDE 0.1 % TOPICAL [...] Vitals: BP Readings from Last 1 Encounters: 05/24/19 122/68 Pulse Readings from Last 1 Encounters: 05/24/19 78 Resp Readings from Last 1 Encounters: 05/24/19 18 Wt Readings from Last 1 Encounters: 05/24/19 63 kg (139 lb) Temp Readings from Last 1 Encounters: 05/24/19 36.7 C (98 F) Body mass index is 24.91 kg/m. Physical Exam: General:This is a femalein [...] 72 hours (or 3 results) Recent Labs 05/22/19 1001 05/24/19 0936 WBC 2.41* 1.56* HB 8.1* 7.3* HCT 24.3* 20.5* PLT 14* 14* NEUTROPERC 41.9* 32.7* LYMPHPERC 13.3* 19.2 MONOPERC 31.5* 34.0* BASOPERC 0.4 0.0 EOSPERC 10.0* 11.5* Chemistries: Last 72 Hours (or 3 results): Recent Labs 05/20/19 0832 05/22/19 1001 05/24/19 0936 NA 135* 133* 133* K 3.2* 3.9 3.6 CL 100 99 98 BICARB 21 23 25 BUN 22* 21* 15 CR 1.43* 1.33* 1.13* GLU 165* 107* 135* CA 8.6 9.2 8.8 AST 12 12 12 ALT 17 15 16 AP 106* 116* 108* TBILI 0.6 0.5 0.5 TP 6.3* 6.7 6.3* ALB 3.2* 3.4* 3.1* ANIONGAP 14* 11 10 ANIONALBCOR 16* 12* 12* Lab Results Component Value Date MG 1.3 05/24/2019 Hematology: Hematologic Malignancy: MDS Conditioning Regimen: FluCyTBI Research study: Kyle "[id number]: A Multicenter, Randomized, Phase III Registration Trial [...] 10 6 per kg Stem Cell Day: +32 Post-transplant: -Day +21 chimerism ordered per study: 100% donor #2 CD33, CD56, CD3 and CD19 insufficient for analysis -BM Bx to be completed on day +30, day +100, 6 months, and 1 year post-transplant -Day +30 BMBX scheduled on 05/25 -Marrow result visit with Dr. De La Torre scheduled for 06/16/19 -Around day + 60, we will return her to her primary attending with our BMT service, Dr. Sa nails; first appointment scheduled for 07/07/18 CBC reviewed and reveals pancytopenia. ANC 510 today and will plan to give zarxio tomorrow (after BMBX), received 1U PRBCs today. Platelet alloimmunization: 05/03 Platelet [...] (05/15-05/17) -Pred 5mg daily (05/19-04/22/2019)- then dc Supportive Care: Growth Factor: last dose of Neupogen given on 05/19/2019 Labs: Continue to check CBC twice weekly Transfusion parameters: -Transfuse PRBCs for HCT <21% if asymptomatic OR <24% if symptomatic -Transfuse PPH for platelet count <10,000 sooner for s/s bleeding GVHD: At this time, there is no evidence of acute kxqwn-wpjyuf-jdaa disease of the skin, gut, or liver. Prophylaxis/Treatment: Prophylaxis with tacrolimus and MMF per Kyle protocol -Tacrolimus startedD-3 (goal 5-15) -MMF 1 gm PO TID D-3 to D+35 (to stop on 06/21/2019) Acute GvHD Staging: Skin: stage 0 Gut: stage 0 Liver: stage 0 Overall Grade: 0 Kyle García phase 3 (IRB 21289) Acute GVHD Staging Complete on study visit [...] mL diarrhea/day 2 25-50% BSA 3.1-6 mg/dL 3048-6221 mL diarrhea/day 3 >50% BSA Generalized erythroderma [...] months ofanticoagulationwith apixiban, end date 04/14/19. 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 -s/p Lisinopril 5 mg PO daily (05/07-05/08) -Restarted home triamterene/HCTZ on 05/09 GI: Nausea: related to pills -Antiemetics PRN Risk of gastritis: -Pepcid 20 mg BID Risk for VOD:no e/o this currently -Ursodiol 500 mgPO BID through Day +90 /Renal: SAM: sCr up to 1.43 on 05/20 2/2 supratherapeutic tacrolimus. Improving. -Tacro adjusted -1L NS bolus given on 05/20 and 05/22 Psych: Depression:Stable, continue home SSRI. -Lexapro 20 mg [...] followed twice weekly for reactivation by PCR. --Viral surveillance: CMV biweekly HHV6 and EBV weekly -EBV- 05/14- negative -HHv6- 116,000 colonies from 05/14. Discussed with ID - will follow -pt asymptomatic Lab Results Component Value Date CMVQUANTPCR Undetected 05/20/2019 CMVQUANTPCR Undetected 05/16/2019 CMVQUANTPCR Undetected 05/13/2019 CMVQUANTPCR Undetected 05/07/2019 Antifungal: Posaconazole for antifungal prophylaxis through day [...] per supportive care protocol. -HypoMg 2/2 CNI: replace in clinic Plan: -Mg sulfate 4g IV today. -1U PRBCs today. -The tacrolimus dose will be adjusted when the tacrolimus trough is available. -BMBX tomorrow. -Give zarxio 300 mcg x 1 tomorrow after BMBX d/t neutropenia. -RTC on 05/27 for labs/magnesium. -Return to clinic 05/31 to see me, sooner prn. LACY Rutledge [facility] [address] [place] Mailcode: [place] [address] documented in this encounter Plan of Treatment Not on filedocumented as of this encounter Results [facility] - LDH TOTAL, PLASMA (06/03/2019 9:32 AM PST) + +---------+ + + + | Component | Value | Ref Range | Performed | Pathologist | | | | | At | Signature | + +---------+ + + + | LD TOTAL, | 168 | <=250 U/L | [facility] | | [...] | [facility] | [address] | [place] [address] | | | [facility] | | | | | [facility] + HEALING | | | | + + + + + [facility] - COMPLETE METABOLIC SET (06/03/2019 9:32 AM PST) + + + + + + | Component | Value | Ref Range | Performed | Pathologist | | | | | At | Signature | + + + + + + | GLUCOSE, | 118 (H) | 70 - 99 mg/dL | [facility] | | | PLASMA | | | LABORATORY | | | (LAB) | | | SERVICES, | | | | | | C[facility] FOR | | | | | | HEALTH + | | | | | | HEALING | | + + + + + + | BUN, PLASMA | 31 (H) | 6 - 20 mg/dL | [...] | | | LABORATORY | | | [facility] | | | SERVICES, | | | [...] + + + + | POTASSIUM, | 3.3 (L) | 3.4 - 5.0 | [facility] | | | PLASMA | | mmol/L | LABORATORY | | | (LAB) | | | SERVICES, | | | | | | [facility] FOR | | | | | | HEALTH + | | | | | | HEALING | | + + + + + + | CHLORIDE, | 94 (L) | 97 - 108 mmol/L | [...] + + + + | CALCIUM(ALB | 9.3 [...] + + + + | TOTAL | 7.0 | 6.4 - 8.2 g/dL | [facility] | | | PROTEIN, | | | LABORATORY | | | PLASMA | | | SERVICES, | | | (LAB) | | | CENTER FOR | | | | | | HEALTH + | | | | | | HEALING | | + + + + + + | ALBUMIN, | 3.7 [...] + + + + | AST(SGOT) | 13 [...] + + + + | ANION | 13 (H) | 4 - 11 [...] MDRD equation recommended by the National | [facility] | | Kidney Disease Education Program. Estimated [...] LABORATORY | [address] | [place] [address] | | | [facility] | | | | [facility] + HEALING | | | | + + + + + [facility] - PHOSPHORUS, PLASMA (06/03/2019 9:32 AM PST) + +-------+ + + + | Component | Value | Ref Range | Performed | Pathologist | | | | | At | Signature | + +-------+ + + + | PHOSPHORUS, | 4.1 | 2.4 - 4.7 mg/dL | [facility] [...] | + + + + + | [facility] | [address] | [place] [address] | | | SERVICES, [place] [facility] | | | | | HE[facility] + HEALING | | | | + + + + + [facility] - MAGNESIUM, PLASMA (06/03/2019 9:32 AM PST) + +---------+ + + + | Component | Value | Ref Range | Performed | Pathologist | | | | | At | Signature | + +---------+ + + + | MAGNESIUM,P | 1.2 (L) | 1.6 - 2.6 mg/dL | [...] [facility] | [address] | [place] [address] | | | SERVICES, [place] [facility] | | | | | HEALTH [...] [facility] | | | | to the [facility] | | | | | | Test Directory for | | | | | | validated specimen | | | | | | source information: | | | | | | [email or web address] | | | | | | esting. [...] - [facility] | | | | [place] [address] | | | | | | [phone]. | | | | | | Zeferino [...] A: | | | | | | twiDAQ/CS | | | | + + + [...] [facility] | [address] | [place], [place] | | | [facility] - [facility] | | [address] | | + + + + + [...] | | performance characteristics determined by the [facility] Molecular | | | Diagnostics Center. It has not been cleared or approved by the Food | | | and Drug Administration. FDA approval is not required for clinical | | | use of this test, and therefore validation was done as required under | | | the requirements of the Clinical Laboratory Improvement Act of 1988. | | | The [facility] is a fully licensed and/or accredited clinical laboratory | | | under CLIA, CAP, and the [facility]. References: 1) | | | Phong [...] | | real-time polymerase chain reaction. Transfusion 2008;48:4500-6509. | | | 4) Bassam BEARDEN, Genny CASAS, Félix I, van keshia Bij W, et al. | | | Frequent monitoring of Verito-Lorenzo virus DNA load in unfractionated | | | whole blood is essential for early detection of posttransplant | | | lymphoproliferative disease in high-risk patients. Blood | | | 2000;97(5):1344-6414. | | + + + + + + + + | Performing | Address | City/State/Zipcode | Phone Number | | Organization | | | | + + + + + | [facility] | [address] | [place] [address] | | | DIAGNOSTIC | [address] [...] 2 fold may not reflect true | [facility] | | biological changes and must [...] | | | characteristics determined by the [facility] | | | Molecular Diagnostic Center. It has not been cleared or approved by | | | the Food and Drug Administration. FDA approval is not required for | | | clinical use of this test, and therefore validation was done as | | | required under the requirements of the Clinical Laboratory Improvement | | | Act of 1988. The [facility] Molecular | | | Diagnostic Center is a fully licensed and/or accredited clinical | | | laboratory under CLIA, CAP, and the [facility]. | | + + + + + + + + | Performing | Address | City/State/Zipcode | Phone Number | | Organization | | | | + + + + + | [facility] | [address] | [place] [address] | | | DIAGNOSTIC | [address] [...] + | Test performed by immunoassay using [employer] Membership Coordinator i2000. . | [facility] | | Samples [...] [facility] | [address] | [place] [address] | | | SERVICES, SPECIAL | PARK [...] | + + + + + | [facility] | [address] | [place] [address] | | | SERVICES, [place] [facility] | | | | | HEALTH + HEALING | | | | + + + + + [facility] - COMPLETE METABOLIC SET (05/31/2019 10:29 AM [...] | | | LABORATORY | | | [facility] | | | SERVICES, | | | [...] MDRD equation recommended by the National | [facility] | | Kidney Disease Education Program. Estimated [...] | + + + + + | [facility] | [address] | [place] [address] | | | SERVICES, CENTER FOR | [...] SERVICES, | | | | | | [place] [facility] | | | | | | [...] [facility] | [address] | [place] [address] | | | SERVICES, CENTER FOR | [...] (L) | 1.6 - 2.6 mg/dL | [facility] | | | [facility] | | | LABORATORY | | | [...] | [facility] | [address] | [place] [address] | | | SERVICES, [facility] | | | | | HEALTH [...] LABORATORY | [address] | [place] [address] | | | SERVICES, [place] [facility] | | | | | HEALTH [...] | | | LABORATORY | | | [facility] | | | SERVICES, | | | [...] SERVICES, | | | | | | [facility] | | | | | | [...] | + + + + + | [email or web address] | [address] | [place] [address] | | | SERVICES, [place] [facility] | | | | | HEALTH + HEALING | | | | + + + + + [facility] - PHOSPHORUS, PLASMA (05/27/2019 9:18 AM PST) [...] LABORATORY | [address] | [place] [address] | | | [facility] | | | | | HEALTH [...] LABORATORY | | | | | | [facility], | | | | | | [place] [facility] | | | | | | [...] | + + + + + | [email or web address] | [address] | [place] [address] | | | [facility] [place] | | | | | HEALTH [...] | Test performed by immunoassay using [employer] Membership Coordinator i2000. . | [facility] | | Samples [...] | + + + + + | [facility] | [address] | [place] [address] | | | SERVICES, SPECIAL | JASON [...] 2 fold may not reflect true | [facility] | | biological changes and must [...] | | | characteristics determined by the [facility] | | | Molecular Diagnostic Center. It has not been cleared or approved by | | | the Food and Drug Administration. FDA approval is not required for | | | clinical use of this test, and therefore validation was done as | | | required under the requirements of the Clinical Laboratory Improvement | | | Act of 1988. The [facility] Molecular | | | Diagnostic Center is a fully licensed and/or accredited clinical | | | laboratory under CLIA, CAP, and the [facility]. | | + + + + + + + + | Performing | Address | City/State/Zipcode | Phone Number | | Organization | | | | + + + + + | [facility] | [address] | [place] [address] | | | DIAGNOSTIC | [address] [...] All female cells by FISH | | [facility] | | | and | and | [...] clinical | | | | | | product safety officer. | | | | + + + [...] | | | | determined by the [facility] | | LABORATORIE | | | | [...] | | | | | (CLIA). The [facility] | | | | | | Diagnostics | | | | | | Laboratories are fully | | | | | | licensed by the state of | | | | | | [place] under CLIA and | | | | | | are accredited by the | | | | | | [employer] | | | | | | Pathologists (CAP). | | | | | | Sales Manager Prearranged Funerals: | | | | | | Tayo Singletary, | | | | | | M.Hunter., | | | | | | Ph.D.Electronically | | | | | | reviewed and signed | | | | | | by:Chuy Acuna, PhD, | | | | | | FACMGClinical | | | | | | Online Project Manager Clinical | | | | | | Molecular | | | | | | Weyjuneyqy86/4/2019 at | | | | | | 11:32 Jonathan and | | | | | | electronically signed by | | | | | | CONG CINTRON, | | | | | | ,FACMG06/01/2019 4:48 | | | | | | PM | | | | + + + + + + | Cytogenetic | Normal | | [facility] | | | s Bone | | [...] + + + | [facility] | [address] | [place] [address] | | | DIAGNOSTIC | [address] [...] Pathology | | | | | | [place] | | | | | | | | | | | | | | | | | | PathologistPathology, | | | | | | [facility] | | | | | | [facility] | | | | | | electronic [...] | | | | | determined by [facility] | | | | | | laboratories. [...] | + + + + + | [facility] | [address] | [place] [address] | | | PATHOLOGY | [address] | | | + + + + + | [facility] | [address] | [place] [address] | | | [facility] | | | | | HEALTH + [...]
--- OUTSIDE RECORDS SUMMARY | ~2020-03-12 | XMS | Encounter Summary ---
Demographics + + + | Address | [address] | | | [place] [address] | + + + | Home Phone [...] Team Providers + +------+ + | Care Elementary Supervisor Name | Role | Phone | [...] | | | | | (HCC) | [place] | | | | | Procedures | [address] | [address] | | | | | [place] | Phone: | Phone: | | | | | OFFICE/OUTPT | [phone] | [phone] | | | | | | Fax: | Fax: | | | | | VISIT,VENKATESHCORTNEY | [phone] | [phone] | | | | | VL IV | | | +--------+--------+ + + + + Encounter Details +--------+---------+ + + + | Date | Type | Department | Care Team | Description | +--------+---------+ + + + | 06/16/ | Office | [facility] | Cathy Cornelius | 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 | Clinics at S | M, MANAGER [employer] [address]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) | | | | [facility] [address] | (Primary Dx) | | | | [facility] | [place], [place] | | | | | [facility] and Healing, | [address] | | | | | [address] | [phone] | | | | | [place], [place] | | | | | | [address] | | | | | | [phone] | | | +--------+---------+ + + + [...] | Blood Pressure | 110/68 | 06/16/2019 9:44 AM | | | | | PST | | + + + + + | Pulse | 82 | 06/16/2019 9:44 AM | | | | | PST | | + + + + + | Temperature | 36.7 C (98 F) | 06/16/2019 9:44 AM | | | | | PST | | + + + + + | Respiratory Rate | 17 | 06/16/2019 9:44 AM | | | | | PST | | + + + + + | Oxygen Saturation | 96% | 06/16/2019 9:44 AM | | | | | PST | | + + + + + | Inhaled Oxygen | - | - | | | Concentration | | | | + + + + + | Weight | 59.9 kg (132 lb) | 06/16/2019 9:44 AM | | | | | PST [...] Instructions Patient Instructions Cathy Cornelius NP - 06/16/2019 10:30 AM PSTFormatting of this no te might be different from the original. 1. Call the BMT clinic ([phone]) or BMT person on-call ([phone]) for: Any temp > 100.4 Nausea/vomiting unresponsive to anti-nausea medications Significant diarrhea despite Imodium Inability to drink at least 2 liters of fluid daily You develop a rash Bleeding 2. We'll call you to adjust your Tacrolimus if necessary. 3. Continue your mycophenalate through 06/21/19 4. Labs and IV magnesium this weekend- we will contact you with appointment time. Labs agai n 06/[address] De La Torre on 06/24 Magnesium Magnesium is important for the metabolism [...] Flakes, 1 cup Bran Chex, 1 cup [place] Natural, 1 cup Nature Valley Granola, 1 [...] 1 slice Chocolate bar, Snickers, 2.16 oz Kinney Powder, unsweetened 1 Tbs Halibut, [place], baked/broiled, 3 oz Lentils, cooked, 1/2 cup [...] 40 documented in this encounter Progress Notes Cathy Cornelius, WALLY - 06/16/2019 10:30 AM PST 06/13/2019- Day +55 post transplant [facility] Physician: Sejal De La Torre DO Local oncologist: Dr. Sequeira Hematologic Malignancy: MDS Conditioning regimen: FluCyTBI Date of transplant: 04/22/2019 Donor: CBU 1: [id number]/02 match, CBU 2: [id number]/02 match Research study: Kyle "[id number]: A Multicenter, Randomized, Phase III Registration Tr [...] howing dropping counts. --Jun. Moved to [place] ([facility]) -- 10/07/18 showed normal chemistries, Bilirubin [...] for D4-D7. 01/14-01/26/2019 admitted for zoster to [facility]. Vidaza held. 02/17/2019- seen at [facility] by Dr. De La Torre, no healthy siblings so cord blood is only option -consented to jeanlavelle "[id number]: A Multicenter, Randomized, Phase III Registration Tri ky of Transplantation of NiCord, Ex Vivo Expanded, UCB-derived, Stem and Progenitor Cells, vs. Unmanipulated UCB for Patients With Hematological Malignancies". She was randomized to SOC arm. --02/21-03/01 C3 aza.Tolerated well without complications. --04/15-05/18/2019 admitted to [facility] for planned flu/cy/tbi conditioned UCB on Jeanida study (SOC arm). 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 Nona Hopper is a 53 y.o. female with hx of MDS, currently day +55, s/p Flu/cy/TBI co nditioned URD cord on gamida trial -on SOC arm. Interval History: Nona comes to clinic today for post-transplant follow up. She is overal l doing well since her last visit. She was able to get more sleep last night for the first t arcenio in a long while. She states the increased dose of Requip seemed to help her RLS as well. She continues to have headaches that she attributes to the tacrolimus as they occur twice d aily after that medication and these headaches remain stable. She does have occasional nause a that occurs in the morning after taking her medications. She does have occasional loose st ool about 1-2 times daily, it resolves after taking imodium. She does have low oral intake a nd has been drinking most of her calories with protein smoothies and shakes. Review of Systems: General: Denies fevers, chills, [...] Vitals: BP Readings from Last 1 Encounters: 06/16/19 110/68 Pulse Readings from Last 1 Encounters: 06/16/19 82 Resp Readings from Last 1 Encounters: 06/16/19 17 Wt Readings from Last 1 Encounters: 06/16/19 59.9 kg (132 lb) Temp Readings from Last 1 Encounters: 06/16/19 36.7 C (98 F) (Oral) Body mass index is 23.65 kg/m. Physical Exam: General:This is a femalein no acute distress. Sitting up in chair with critical care physician assistant at bedside. HEENT:PERRL. Sclerae anicteric. Mucosa pink [...] 72 hours (or 3 results) Recent Labs 06/16/19 0942 WBC 2.87* HB 9.9* HCT 31.0* PLT 107* NEUTROPERC 47.4* LYMPHPERC 18.8 MONOPERC 19.9* BASOPERC 0.3 EOSPERC 12.9* Chemistries: Last 72 Hours (or 3 results): Recent Labs 06/10/19 1028 06/13/19 0922 06/16/19 0942 NA 134* 134* 132* K 3.7 2.7* 3.7 CL 100 97 99 BICARB 22 24 21 BUN 9 12 13 CR 0.76 0.89 0.90 GLU 105* 104* 109* CA 8.9 8.8 9.2 AST 16 12 16 ALT 15 16 15 AP 81 78 79 TBILI 0.7 0.8 0.9 TP 6.1* 6.4 6.5 ALB 3.3* 3.5 3.7 ANIONGAP 12* 13* 12* ANIONALBCOR 13* 14* 12* Lab Results Component Value Date MG 1.3 06/16/2019 Hematology: Hematologic Malignancy: MDS Conditioning Regimen: FluCyTBI Research study: Kyle "[id number]: A Multicenter, Randomized, Phase III Registration Trial [...] 10 6 per kg Stem Cell Day: +55 Post-transplant: -Day +21 chimerism ordered per study: [...] no prior mutations CBC reviewed and reveals improved anemia and thrombocytopenia. WBC/ANC WNL and platelets t rending upward independent of transfusion. There is no blood product support required at thi s time. 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 Prophylaxis/Treatment: Prophylaxis with tacrolimus and MMF per Kyle protocol -Tacrolimus startedD-3 (goal 5-15) -MMF 1 gm PO TID D-3 to D+60 (to stop on 06/21/2019) Acute GvHD Staging: Skin: stage 0 Gut: stage 0 Liver: stage 0 Overall Grade: 0 Kyle Simpson phase 3 (IRB 71111) Acute GVHD Staging Complete on study visit days 7,14, 21, +28, 35, 42, 56, 70, 100, 180 aGVHD Staging Criteria: Rule of 9:arm 9%; head 18%; palm 1%; leg 18%; anterior chest 18%; posterior chest 18%; cralton meka 1%. Stage Skin/Rash Liver (Tbili mg/dL) Upper GI Lower GI 1 <25% BSA 2-3 mg/dL Persistent anorexia, nausea, or vomiting 500-1000 mL diarrhea/day 2 25-50% BSA 3.1-6 mg/dL 2105-5302 mL diarrhea/day 3 >50% BSA Generalized erythroderma [...] months ofanticoagulationwith apixiban, end date 04/14/19. 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 -s/p Lisinopril 5 mg [...] by PCR. -HHV6 and EBV weekly -EBV- 06/16 pending -HHv6- 06/16 pending Lab Results Component Value Date CMVQUANTPCR Undetected 06/13/2019 CMVQUANTPCR Undetected 06/10/2019 CMVQUANTPCR Undetected 06/07/2019 CMVQUANTPCR Undetected 06/03/2019 Antifungal: Posaconazole for antifungal prophylaxis through day [...] weekly. Replace per supportive care protocol. -HypoMg 2/ CNI: start PO mag 1 tab BID on 06/03. Pharmacy is out of this medication kesha pope and will hold with intermittent diarrhea. -HypoK: KDur 20 mEq once daily, started 06/13. Plan/Patient Instructions: 1. Call the BMT clinic ([phone]) or BMT person on-call ([phone]) for: Any temp > 100.4 Nausea/vomiting unresponsive to anti-nausea medications Significant diarrhea despite Imodium Inability to drink at least 2 liters of fluid daily You develop a rash Bleeding 2. We'll call you to adjust your Tacrolimus if necessary. 3. Continue your mycophenalate through 06/21/19 4. Labs and IV magnesium this - we will contact you with appointment time. Labs agai n 06/[address] De La Torre on 06/24 Magnesium Magnesium is important for the metabolism [...] Flakes, 1 cup Bran Chex, 1 cup [place] Natural, 1 cup Nature Valley Granola, 1 [...] 1 slice Chocolate bar, Snickers, 2.16 oz [place] Powder, unsweetened 1 Tbs Halibut, [place], baked/broiled, 3 oz Lentils, cooked, 1/2 cup [...] 50 50 55 50 29 31 40 Cathy Cornelius NP [facility] AT [address] Mailcode: [place] [address] etersonCathy NP - 06/16/2019 10:30 AM PST . 06/13/2019 [facility] Physician: Sejal De La Torre DO Local oncologist: Dr. Sequeira Hematologic Malignancy: MDS Conditioning regimen: FluCyTBI Date of transplant: 04/22/2019 Donor: CBU 1: [id number]/02 match, CBU 2: [id number]/02 match Research study: Kyle "[id number]: A Multicenter, Randomized, Phase III Registration Tr [...] howing dropping counts. --Jun. Moved to [place] ([facility]) -- 10/07/18 showed normal chemistries, Bilirubin [...] for D4-D7. 01/14-01/26/2019 admitted for zoster to [facility]. Vidaza held. 02/17/2019- seen at [facility] by Dr. De La Torre, no healthy siblings so cord blood is only option -consented to kyle "[id number]: A Multicenter, Randomized, Phase III Registration Tri ky of Transplantation of NiCord, Ex Vivo Expanded, UCB-derived, Stem and Progenitor Cells, vs. Unmanipulated UCB for Patients With Hematological Malignancies". She was randomized to SOC arm. --02/21-03/01 C3 aza.Tolerated well without complications. --04/15-05/18/2019 admitted to [facility] for planned flu/cy/tbi conditioned UCB on Gamida [...] Vitals: BP Readings from Last 1 Encounters: 06/16/19 110/68 Pulse Readings from Last 1 Encounters: 06/16/19 82 Resp Readings from Last 1 Encounters: 06/16/19 17 Wt Readings from Last 1 Encounters: 06/16/19 59.9 kg (132 lb) Temp Readings from Last 1 Encounters: 06/16/19 36.7 C (98 F) (Oral) Body mass index is 23.65 kg/m. Physical Exam: General:This is a femalein [...] 72 hours (or 3 results) Recent Labs 06/16/19 0942 WBC 2.87* HB 9.9* HCT 31.0* NEUTROPERC 47.4* LYMPHPERC 18.8 MONOPERC 19.9* BASOPERC 0.3 EOSPERC 12.9* Chemistries: Last 72 Hours (or 3 results): Recent Labs 06/10/19 1028 06/13/19 0922 06/16/19 0942 NA 134* 134* 132* K 3.7 2.7* 3.7 CL 100 97 99 BICARB 22 24 21 BUN 9 12 13 CR 0.76 0.89 0.90 GLU 105* 104* 109* CA 8.9 8.8 9.2 AST 16 12 16 ALT 15 16 15 AP 81 78 79 TBILI 0.7 0.8 0.9 TP 6.1* 6.4 6.5 ALB 3.3* 3.5 3.7 ANIONGAP 12* 13* 12* ANIONALBCOR 13* 14* 12* Lab Results Component Value Date MG 1.3 06/16/2019 Hematology: Hematologic Malignancy: MDS Conditioning Regimen: FluCyTBI Research study: Kyle "[id number]: A Multicenter, Randomized, Phase III Registration Trial [...] time, there is no evidence of acute fiqli-lwkqew-bgzo disease of the skin, gut, or liver. Prophylaxis/Treatment: Prophylaxis with tacrolimus and MMF per Gamida protocol -Tacrolimus startedD-3 (goal 5-15) -MMF 1 gm PO TID D-3 to D+60 (to stop on 06/21/2019) Acute GvHD Staging: Skin: stage 0 Gut: stage 0 Liver: stage 0 Overall Grade: 0 Kyle García phase 3 (IRB 24436) Acute GVHD Staging Complete on study visit [...] mL diarrhea/day 2 25-50% BSA 3.1-6 mg/dL 4082-9428 mL diarrhea/day 3 >50% BSA Generalized erythroderma [...] months ofanticoagulationwith apixiban, end date 04/14/19. 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 -s/p Lisinopril 5 mg [...] Lab Results Component Value Date CMVQUANTPCR Undetected 06/13/2019 CMVQUANTPCR Undetected 06/10/2019 CMVQUANTPCR Undetected 06/07/2019 CMVQUANTPCR Undetected 06/03/2019 Antifungal: Posaconazole for antifungal prophylaxis through day [...] LACY Rutledge [facility] AT [address] Mailcode: [place] [address] documented in thi s encounter Plan of Treatment Not on filedocumented as of this encounter Results HUMAN HERPES [...] - [facility] | | | | [place] [address] | | | | | | [phone]. | | | | | | Zeferino [...] A: | | | | | | Legal Egg/CS | | | | + + + [...] [facility] | [address] | [place], [place] | | | [facility] | | [address] | | + + + + + VERITO-LORENZO VIRUS PCR, PLASMA (06/16/2019 9:42 AM PST) + + + + + + | Component | Value | Ref Range | Performed | Pathologist | | | | | At | Signature | + + + + + + | EBV QUANT | Undetected | Undetected, | [facility] | | | BY PCR, | | [...] we have completed a quantitative polymerase | [facility] | | chain reaction (PCR) based [...] | | performance characteristics determined by the [facility] Molecular | | | Diagnostics Center. It has not been cleared or approved by the Food | | | and Drug Administration. FDA approval is not required for clinical | | | use of this test, and therefore validation was done as required under | | | the requirements of the Clinical Laboratory Improvement Act of 1988. | | | The [facility] is a fully licensed and/or accredited clinical laboratory | | | under CLIA, CAP, and the [facility]. References: 1) | | | [...] | | real-time polymerase chain reaction. Transfusion 2008;48:2450-1992. | | | 4) Bassam SULEIMAN, Genny CASAS, Félix I, van keshia Bij W, et al. | | | Frequent monitoring of Verito-Lorenzo virus DNA load in unfractionated | | | whole blood is essential for early detection of posttransplant | | | lymphoproliferative disease in high-risk patients. Blood | | | 2001;97(5):6253-2637. | | + + + + + + + + | Performing | Address | City/State/Zipcode | Phone Number | | Organization | | | | + + + + + | [facility] | [address] | [place] [address] | | | DIAGNOSTIC | [address] | | | | LABORATORIES | | | | + + + + + documented in this encounter Visit Diagnoses + + | Diagnosis | + + | MDS (myelodysplastic syndrome) (HCC) - Primary Myelodysplastic syndrome, unspecified | + + documented in this encounter
--- OUTSIDE RECORDS SUMMARY | ~2020-03-12 | XMS | Encounter Summary ---
Demographics + + + | Address | [address] | | | [place] [address] | + + + | Home Phone [...] Team Providers + +------+ + | Care Rollway Man Name | Role | Phone | + +------+ + | Meredith Sanchez | PCP | | + +------+ + Encounter Details +--------+ + + + + | Date | Type | Department | Care Team | Description | +--------+ + + + + | 07/08/ | Pharmacy | Pharmacy @ [facility] | | | | 2019 | Visit | [address] | | | | | | Re[place] Call[place] Mailcode: | | | | | | [facility] | | | | | | and Healing, | | | | | | [address] | | | | | | [place], [place] | | | | | | [address] | | | +--------+ + + + [...]
--- OUTSIDE RECORDS SUMMARY | ~2020-03-12 | XMS | Encounter Summary ---
Demographics + + + | Address | [address] | | | [place] [address] | + + + | Home Phone [...] Team Providers + +------+ + | Care Stem Roller Operator Name | Role | Phone | + +------+ + | Meredith Sanchez | PCP | | + +------+ + Encounter Details +--------+ + + + + | Date | Type | Department | Care Team | Description | +--------+ + + + + | 06/10/ | Pharmacy | Pharmacy @ [facility] | | | | 2019 | Visit | [address] | | | | | | [place] Mailcode: | | | | | | [facility] | | | | | | and Healing, | | | | | | [address] | | | | | | [place], [place] | | | | | | [address] | | | +--------+ + + + [...]
--- OUTSIDE RECORDS SUMMARY | ~2020-03-12 | XMS | Encounter Summary ---
Demographics + + + | Address | [address] | | | [place] [address] | + + + | Home Phone [...] Author + + + | Author | [facility] | + + + | Organization | [facility] | + + + | Address | Unknown | + + + | Phone | Unavailable | + + + Support + + +---------+ + | Name | Relationship | Address | Phone | + + +---------+ + | Claudia Cota | ECON | Unknown | | + + +---------+ + Care Team Providers + +------+ + | Care Street Light Inspector Name | Role | Phone | [...] Closed | | Physical | Diagnoses | Adryan, | Jose [facility] | | | | Therapy | S/P cord | Cathy Gonzalez, | [address] | | | | | blood | VOCATIONAL TRAINER [address] | [facility] | | | | | transplantat | [address] | for Health | | | | | ion | [address] | and Healing, | | | | | Procedures | [facility] [place] | [address], | | | | | PHYSICAL | [address] | 1st Floor | | | | | THERAPY | Phone: | [place], [place] | | | | | REFERRAL | [phone] | [address] | | | | | | Fax: | Phone: | | | | | | [phone] | [phone] | | | | | | | Fax: | | | | | | | [phone] | +--------+--------+ + + + + Reason for Visit Office Visit - E/M Services (Routine) + +--------+ + + + + | Status | Reason | Specialty | Diagnoses / | Referred By | Referred To | | | | | Procedures | Contact | Contact | + +--------+ + + + + | Authorized | | Hematology / | Diagnoses | Saultz, | Sajaqui, | | | | Hematology | MDS | Sejal Meadows, | Sejal Meadows, | | | | Malignancy | (myelodyspla | DO [address] | DO [address] | | | | | stic | [address] | [place] [address] | | | | | syndrome) | [address]jan | [address]ly Lujan | | | | | (HCC) | [place] | [place] | | | | | Procedures | [address] | [address] | | | | | [place] EST | Phone: | Phone: | | | | | PATIENT | [phone] | [phone] | | | | | LEVEL V | Fax: | Fax: | | | | | | [phone] | [phone] | + +--------+ + + + + Encounter Details +--------+---------+ + + + | Date | Type | Department | Care Team | Description | +--------+---------+ + + + | 08/31/ | Office | [facility] | Cathy Cornelius | S/P cord blood | | 2020 | Visit | Clinics at S | M, VOCATIONAL TRAINER [address] | transplantation | | | | [facility] [address] | (Primary Dx) | | | | [address] [facility] for | [place], [place] | | | | | Health and Healing, | [address] | | | | | [address] | [phone] | | | | | [place], [place] | | | | | | [address] | | | | | | [phone] | | | +--------+---------+ + + + [...] + + + | Blood Pressure | 167/90 | 09/01/2019 11:04 AM | | | | | PST | | + + + + + | Pulse | 72 | 09/01/2019 11:04 AM | | | | | PST | | + + + + + | Temperature | 37.1 C (98.8 F) | 09/01/2019 11:04 AM | | | | | PST | | + + + + + | Respiratory Rate | 15 | 09/01/2019 11:04 AM | | | | | PST | | + + + + + | Oxygen Saturation | 97% | 09/01/2019 11:04 AM | | | | | PST | | + + + + + | Inhaled Oxygen | - | - | | | Concentration | | | | + + + + + | Weight | 58.5 kg (129 lb) | 09/01/2019 11:04 AM | | | | | PST | | + + + + + | Height | - | - | | + + + + + | Body Mass Index | 23.8 | 07/08/2019 4:32 PM | | | [...] Instructions Patient Instructions Cathy Cornelius NP - 09/01/2019 11:00 AM PST1. Call the BMT clini c ([phone]) or BMT person on-call ([phone]) for: Any temp > 100.4 Nausea/vomiting unresponsive to anti-nausea medications Significant diarrhea despite Imodium Inability to drink at least 2 liters of fluid daily You develop a rash Bleeding 2. We'll call you to adjust your Tacrolimus if necessary. 3. Decrease prednisone as follows: 08/30-09/05: Take 15mg twice daily 09/06-09/12: Take 25mg once daily 09/13- until further notice: Take 20mg once daily 3. Continue exercises for right leg weakness. I referred you to physical therapy at [facility] an d that visit can be scheduled on the day of your next visit with our team on 09/28 4. Follow up with Dr. De La Torre/myself on 09/28, sooner if needed documented in this encounter Progress Notes Cathy Cornelius NP - 09/01/2019 11:00 AM PST 09/01/19- Day +132 post transplant CHM Physician: Sejal De La Torre DO Local oncologist: Dr. Sequeira Hematologic Malignancy: MDS Conditioning regimen: FluCyTBI Date of transplant: 04/22/2019 Donor: CBU 1: [id number]/02 match, CBU 2: [id number]/02 match Research study: Kyle "[id number]: A Multicenter, Randomized, Phase III Registration Tr [...] howing dropping counts. --Jun. Moved to [place] ([facility]) -- 10/07/18 showed normal chemistries, Bilirubin 1.4, [...] for D4-D7. 01/14-01/26/2019 admitted for zoster to [facility]. Vidaza held. 02/17/2019- seen at [facility] by Dr. De La Torre, no healthy siblings so cord blood is only option -consented to kyle "[id number]: A Multicenter, Randomized, Phase III Registration Tri mo of Transplantation of NiCord, Ex Vivo Expanded, UCB-derived, Stem and Progenitor Cells, vs. Unmanipulated UCB for Patients With Hematological Malignancies". She was randomized to SOC arm. --02/21-03/01 C3 aza.Tolerated well without complications. --04/15-05/18/2019 admitted to [facility] for planned flu/cy/tbi conditioned UCB on [...] accomp anied by her caregiver, Melly. She was last seen one month ago and since that time she develop a new skin rash on her legs, arms and chest. The rash has now resolved with steroids and cindy gaines is tolerating the steroid taper well without new flare in skin rash. She denies any other symptoms of GVHD including nausea, vomiting or diarrhea. Her appetite is good and it initial ly improved with the prednisone initiation and has now stabilized. She did drop weight when she first went home and is now gaining weight again due to increased food intake. She contin ues to have leg weakness, right more than left. She is hesitant to start physical therapy du e to the local PT gym setting. She continues to walk and tries to increase muscle strength w ith exercises in her apartment. She has had five falls since our last visit and it mostly be cause she trips over her right leg. She denies any acute injury, except for one last week wh en she hit her head and has a bruise at the site. Denies any residual headaches or loss of c onsciousness. Platelets remain elevated. Review of Systems: General: Denies fevers, chills, [...] or muscle cramps. +Leg weakness, R>L Skin: No rash. Mild erythema to chest and back, now confluent and healing Psychological: No abnormal anxiety, depression. Remainder of [...] 0.5 mg by mouth TWICE daily on Mon/Wed/ Fri, and take 0.5 mg by mouth [...] by mouth two times daily. Vitals: BP 167/90 (BP Location: Left upper arm, Patient Position: Sitting) | Pulse 72 | Temp 37.1 C (98.8 F) (Oral) | Resp 15 | Wt 58.5 kg (129 lb) | SpO2 97% | BMI 23.80 kg/m | BSA 1.6 m Physical Exam: General:This is a femalein no [...] dry and intact. Laboratory Results: CBC with diff last 72 hours (or 3 results) Recent Labs 09/01/19 1016 WBC 6.60 HB 9.7* HCT 31.5* PLT 123* NEUTROPERC 66.6 LYMPHPERC 15.3* MONOPERC 12.7* BASOPERC 0.2 EOSPERC 0.5* Chemistries: Last 72 Hours (or 3 results): Recent Labs 08/01/19 1359 08/04/19 1318 09/01/19 1016 NA 135* 135* 140 K 4.7 4.7 3.9 CL 101 102 105 BICARB 24 23 26 BUN 24* 19 31* CR 0.79 0.84 0.85 GLU 119* 133* 106* CA 8.5* 8.6 8.4* AST 16 17 15 ALT 27 29 37 AP 91 108* 106* TBILI 0.4 0.3 0.5 TP 6.3* 6.7 6.1* ALB 3.2* 3.3* 3.1* ANIONGAP 10 10 9 ANIONALBCOR 12* 11 11 Lab Results Component Value Date MG 1.5 08/04/2019 Diagnostics: CT chest 07/21/19: Since 07/08/2019, mild interval decrease in right lower lobe consolidation and surrounding groundglass/tree-in-bud nodularity, consistent with resolving infection, li delgado bacterial given the short-term improvement. Interval decrease in right middle lobe and lingular groundglass and tree-in-bud nodularity, also likely related to aforementioned bacte rial pneumonia. Stable 5 mm lingular nodule. Assessment/Plan: 1. Hematology: History of MDS s/p FluCyTBI double cord (Day 0=04/22/19) She is enrolled in [facility] "[id number]: A Multicenter, Randomized, Phase III Registration Trial [...] no prior mutations were de tected on [employer]. Her engraftment studies show 100% donor #2 (female) D+90. PB chimerism 07/21-100% cord 2 -BMBx 07/28/19 shows 20-30% cellularity with no increase in blasts. Normal karyotype. No pr ior mutations noted CBC reviewed and reveals stable anemia and improved thrombocytopenia. Differential reviewed and reveals monocytosis, will continue to follow. 2. GVHD: [...] daily 09/06-09/12: Take 25mg once daily 09/13- until further notice: Take 20mg once daily -Prophylaxis with tacrolimus and MMF per [facility] protocol -Tacrolimus, continue with goal 5-10 -s/p MMF 1 gm PO TID D-3 to D+60 (stopped on 06/21/2019) -Continue triamcinolone cream as needed, no current areas of active rash Kyle Simpson phase 3 (IRB 79232) Acute GVHD Staging Complete on study visit [...] mL diarrhea/day 2 25-50% BSA 3.1-6 mg/dL 6082-1770 mL diarrhea/day 3 >50% BSA Generalized erythroderma [...] of aGVHD? (Y/N) Y n n n Pulmonary: Pretransplant PFTs completed on03/10/19 showed FEV1 of76% predicted, FVC of 87% predicted and adjusted DLCO of77% predicted. Plan for PFTs at Day +100 (requested tod marcelo, 07/14) 3. ID: Recent admission for colitis and [...] and Prevnar#1 administered on 07/28/19. 4. FEN: Appetite good. Weight stable. Albumin remains low at 3.1, will continue to follow. Electrolytes reveiwed and shows hypomagnesium, Mg=1.7 and slightly elevated non-fasting gluc ose at 106 -HypoMg 07/31 CNI: Magnesium 8 tablets daily -HypoK: Resolved and Now on KDur 30 mEq daily 5. GI: Risk of gastritis: Continue Pepcid 20 mg BID Risk for VOD:no e/o this currently. Completed Ursodiol 500 mgPO BID through Day +90 ( 07/20/19) 6. Pysch: #Insomnia related to RLS: continue Requip 0.5 mg qHS #Depression:Stable, continue home SSRI. -Lexapro 20 mg PO daily 7. MSK: Deconditioning post transplant with right foot drop and leg weakness, R>L. -PT at [facility] referral made today, she is deferring local PT given gym setting and concern f or viral illnesses -Continue strength training exercises and walking at home Plan/Patient Instructions: 1. Call the BMT clinic ([phone]) or BMT person on-call ([phone]) for: Any temp > 100.4 Nausea/vomiting unresponsive to anti-nausea medications Significant diarrhea despite Imodium Inability to drink at least 2 liters of fluid daily You develop a rash Bleeding 2. We'll call you to adjust your Tacrolimus if necessary. 3. Decrease prednisone as follows: 08/30-09/05: Take 15mg twice daily 09/06-09/12: Take 25mg once daily 09/13- until further notice: Take 20mg once daily 3. Continue exercises for right leg weakness. I referred you to physical therapy at [facility] an d that visit can be scheduled on the day of your next visit with our team on 09/28 4. Follow up with Dr. De La Torre/myself on 09/28, sooner if needed Cathy Cornelius NP [facility] [address] [facility] [address] [place]code: [place] [address] documented in th is encounter Plan of Treatment Not on filedocumented as of this encounter Visit Diagnoses + + | Diagnosis | + + | 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
--- OUTSIDE RECORDS SUMMARY | ~2020-03-12 | XMS | Encounter Summary ---
Demographics + + + | Address | [address] | | | [place] [address] | + + + | Home Phone [...] Team Providers + +------+ + | Care Sharebroker Name | Role | Phone | + +------+ + | Meredith Sanchez | PCP | | + +------+ + Encounter Details +--------+ + + + + | Date | Type | Department | Care Team | Description | +--------+ + + + + | 04/12/ | Hospital | Radiation Oncology | | | | 2019 | Encounter | at [facility] [address] | | | | | | [address] | | | | | | [place], [address] [place] [address] | | | | | | [place], [place] | | | | | | [address] | | | | | | [phone] | | | +--------+ + + + [...]
--- OUTSIDE RECORDS SUMMARY | ~2020-03-12 | XMS | Encounter Summary ---
Demographics + + + | Address | [address] | | | [place] [address] | + + + | Home Phone [...] Team Providers + +------+ + | Care Pharmacy Services Representative Name | Role | Phone | + +------+ + | Meredith Sanchez | PCP | | + +------+ + Encounter Details +--------+ + + + + | Date | Type | Department | Care Team | Description | +--------+ + + + + | 04/15/ | Pharmacy | Outpatient Retail | | | | 2019 | Visit | [facility] | | | | | | [address] | | | | | | [address] [place], [place] | | | | | | [address] | | | | | | [phone] | | | +--------+ + + + [...]
--- OUTSIDE RECORDS SUMMARY | ~2020-03-12 | XMS | Encounter Summary ---
Demographics + + + | Address | [address] | | | [place] [address] | + + + | Home Phone | | + + + | Preferred Language | Unknown | + + + | Marital Status | | + + + | Caodaism Affiliation | Unknown | + + + | Race | White | + + + | Ethnic Group | Not or | + + + Author + + + | Author | [facility] | | | and [place] | + + + | Organization | [facility] | | | and [...] [place] | | | | | [address] | | + + + + + Care Team Providers + +------+ + | Care Elevator Constructor Hydraulic Name | Role | Phone | + +------+ + | Meredith Sanchez | PCP | | | PA | | | + +------+ + Reason for Visit + +--------+ + | Reason | Onset | Comments | | | Date | | + +--------+ + | Care Coordination | 03/30/ | | | | 2019 | | + +--------+ + Encounter Details +--------+ + + + + | Date | Type | Department | Care Team | Description | +--------+ + + + + | 03/30/ | Telephone | [facility] | [facility] | Care Coordination | | 2019 | | [facility] | Tripp Schultz MD [address] | | | | | [facility] [address] | [facility] | | | | | [address] | [address] [place], [place] | | | | | [place] [address] | [id number] | | | | | [phone] | | | +--------+ + + + [...] this encounter Miscellaneous Notes Telephone Encounter - Gurinder Cheung - 03/30/2019 10:42 AM Kya De La Torre called, pt is rivas pposed to go to transplant this month but she needs to get a new insurance, so she is recomm ending a new cycle of chemo this month as transplant will likely not be until mid April. [phone] is the doctor's # if needed. Thank you documented in this encounter Plan of Treatment Not on filedocumented as of this encounter Visit Diagnoses Not on filedocumented in this encounter"
--- OUTSIDE RECORDS SUMMARY | ~2020-03-12 | XMS | Encounter Summary ---
Demographics + + + | Address | [address] | | | [place] [address] | + + + | Home Phone [...] Author + + + | Author | [facility] | + + + | Organization | [facility] | + + + | Address | Unknown | + + + | Phone | Unavailable | + + + Support + + +---------+ + | Name | Relationship | Address | Phone | + + +---------+ + | Claudia Cota | ECON | Unknown | | + + +---------+ + Care Team Providers + +------+ + | Care Sluice Tender Name | Role | Phone | + +------+ + | Meredith Sanchez | PCP | | + +------+ + Reason for Visit + + + | Reason | Comments | + + + | Lab Draw | | + + + | Bone Marrow Biopsy | | + + + Intake Referral (Routine) +--------+---------+ + + + + | Status | Reason | Specialty | Diagnoses / | Referred By | Referred To | | | | | Procedures | Contact | Contact | +--------+---------+ + + + + | Closed | Other | Hematology | Diagnoses | | [place], | | | | 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, | Sejal N, | | | | | 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, | DO [address] | | | | | excess of | MD [address] | Jon [address] | | | | | blasts 2 | Margarito Daily | Melly Lujan | | | | | EVALUATE FOR | Jermaine, | [place], [place] | | | | | HDCT ALLO | [place] [address] | [address] | | | | | BMT FOR RAEB | Phone: | Phone: | | | | | 2 | [phone] | [phone] | | | | | | Fax: | Fax: | | | | | | [phone] | [phone] | +--------+---------+ + + + + Encounter Details +--------+ + + + + | Date | Type | Department | Care Team | Description | +--------+ + + + + | 03/10/ | Hospital | [facility] | | | | 2019 | Encounter | Clinics at S | | | | | | [facility] [address] | | | | | | [facility] | | | | | | Health and Healing, | | | | | | [address] | | | | | | [place], [place] | | | | | | [address] | | | | | | [phone] | | | +--------+ + + + [...] + + + | Blood Pressure | 132/81 | 03/10/2019 7:16 AM | | | | | PDT | | + + + + + | Pulse | 77 | 03/10/2019 7:16 AM | | | | | PDT | | + + + + + | Temperature | 36.8 C (98.2 F) | 03/10/2019 7:16 AM | | | | | PDT | | + + + + + | Respiratory Rate | 16 | 03/10/2019 7:16 AM | | | | | PDT | | + + + + + | Oxygen Saturation | 97% | 03/10/2019 7:16 AM | | | | | PDT | | + + + + + | Inhaled Oxygen | - | - | | | Concentration | | | | + + + + + | Weight | 66.5 kg (146 lb 8 | 03/10/2019 7:16 AM | | | | oz) | PDT | | + + + + + | Height | - | - | | + + + + + | Body Mass Index | 26.8 | 01/14/2019 3:08 PM | | | [...] encounter Progress Notes Avelina Busby RN - 03/10/2019 6:52 AM PDTINFUSION NURSING NOTE Allergies: Nona is allergic to sulfa (sulfonamide antibiotics). Narrative: Nona is a 53 yo female with hx of MDS, in clinic today for lab draw and bone marrow biops y. Patient arrives to clinic walking independently. Patient states she is feeling good today . Nursing Assessment: Fever/Chills/Infection: No SOB / Cough: No Dizziness/Lightheaded/Fatigue: Yes - acknowledges baseline fatigue Signs/Symptoms Bleeding: No Neuropathy: No Mucositis: No Nausea/Vomiting: No Appetite: good. Diarrhea/Constipation: No PO Fluid Intake: good. Rash/Skin sores/Edema: Yes - resolving redness from previous shingles outbreak to right [address]. No open sores at this time. Pt does complain of intermittent itchiness and pain. Urinary Issues: No Pain: No Vascular Access: R wrist accessed with a 23 gauge butterfly needle. Labs drawn and sent. Tolerated procedu re well. Site dressed with sterile gauze and Coban. Per Orders: Infusion: 40 mEq of KCL PO given for K level of 3.3. Procedures: Provided instruction regarding post bone marrow biopsy care. Instructed to keep dressing on for 24 hours, then remove dressing and assess site for redness, swelling or drainage and to call the triage nurse if it develops any of these symptoms or develops worsening pain or di scomfort at the biopsy site. Patient may leave dressing off if site scabbed over otherwise a pply a band aid until scabbed over and reassess area every 24 hours until healed. Avelina Busby RN documented in this en counter Plan of Treatment Not on filedocumented as of this encounter Procedures + +--------+ + + + | Procedure Name | Priori | Date/Time | Associated Diagnosis | Comments | | | ty | | | | + +--------+ + + + | CBC AND AUTO DIFF | Routin | 03/10/2019 | MDS | Results for this | | | e | 7:04 AM | (myelodysplastic | procedure are in the | | | | PDT | syndrome) ([facility]) | results section. | + +--------+ + + + | [facility] - COMPLETE | Routin | 03/10/2019 | MDS | Results for this | | METABOLIC SET | e | 7:04 AM | (myelodysplastic | procedure are in the | | | | PDT | syndrome) ([facility]) | results section. | + +--------+ + + + | [facility] CBC W | Routin | 03/10/2019 | MDS | Results for this | | DIFFERENTIAL | e | 7:04 AM | (myelodysplastic | procedure are in the | | | | PDT | syndrome) ([facility]) | results section. | + +--------+ + + + | [facility]DH TOTAL, PLASMA | Routin | 03/10/2019 | MDS | Results for this | | | e | 7:04 AM | (myelodysplastic | procedure are in the | | | | PDT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) | results section. | + +--------+ + + + documented in this encounter Results CBC AND AUTO DIFF (03/10/2019 7:04 AM PDT) + + + + + + | Component | Value | Ref Range | Performed | Pathologist | | | | | At | Signature | + + + + + + | WHITE CELL | 5.65 | 3.50 - 10.80 | [facility] | | | COUNT | | K/cu mm | LABORATORY | | | | | | SERVICES, | | | | | | [facility] | | | | | | [facility] | | + + + + + + | RED CELL | 4.44 | 4.00 - 5.20 | [facility] | | | COUNT | | M/cu mm | LABORATORY | | | | | | SERVICES, | | | | | | [facility] + | | | | | | [facility] | | + + + + + + | HEMOGLOBIN | 13.3 | 12.0 - 16.0 | [facility] | | | | | g/dL | LABORATORY | | | | | | SERVICES, | | | | | | [facility] + | | | | | | [facility]ALING | | + + + + + + | HEMATOCRIT | 39.9 | 36.0 - 46.0 % | [facility] | | | | | | LABORATORY | | | | | | SERVICES, | | | | | | [facility] + | | | | | | [facility]ALING | | + + + + + + | MCV | 89.9 | 80.0 - 100.0 fL | [facility] | | | | | | LABORATORY | | | | | | SERVICES, | | | | | | [facility] + | | | | | | [facility]ALING | | + + + + + + | MCHC | 33.3 | 32.0 - 36.0 | [facility] | | | | | g/dL | LABORATORY | | | | | | SERVICES, | | | | | | [facility] | [facility] + | | | | | | [facility]ALING | | + + + + + + | RDW SD | 48.6 (H) | 35.1 - 46.3 fL | [facility] | | | | | | LABORATORY | | | | | | SERVICES, | | | | | | [facility] | [facility] + | | | | | | [facility] | | + + + + + + | PLATELET | 306 | 150 - 400 K/cu | [facility] | | | COUNT | | mm | LABORATORY | | | | | | SERVICES, | | | | | | [facility] + | | | | | | [facility]ALING | | + + + + + + | MPV | 11.1 | 9.7 - 12.3 fL | [facility] [...] + + + + | NEUTROPHIL | 68.6 | 50.0 - 70.0 % | [facility] | | | % | | | LABORATORY | | | | | | SERVICES, | | | | | | [facility] | [facility] + | | | | | | [facility]ALING | | + + + + + + | LYMPHOCYTE | 23.4 | 18.0 - 42.0 % | [facility] | | | % | | | LABORATORY | | | | | | SERVICES, | | | | | | [facility] + | | | | | | [facility]ALING | | + + + + + + | MONOCYTE % | 3.9 | 3.5 - 9.0 % | [facility] | | | | | | LABORATORY | | | | | | SERVICES, | | | | | | [facility] | [facility] + | | | | | | [facility]ALING | | + + + + + + | EOS % | 2.5 | 1.0 - 3.0 % | [facility] [...] + + + + | NEUTROPHIL | 3.88 | 1.80 - 7.70 | [facility] | | | # | | K/cu mm | LABORATORY | | | | | | SERVICES, | | | | | | [facility] | [facility] + | | | | | | [facility]ALING | | + + + + + + | NEUTROPHIL | 3.88Comment: Preliminary | 1.80 - 7.70 | [facility] [...] + + + + | LYMPHOCYTE | 1.32 | 1.00 - 4.80 | [facility] | | | # | | K/cu mm | LABORATORY | | | | | | SERVICES, | | | | | | [facility] | [facility] + | | | | | | HEALING | | + + + + + + | MONOCYTE # | 0.22 | 0.10 - 0.90 | [facility] | [...] + + + | BASO # | 0.06 | 0.00 - 0.10 | [...] | + + + + + | [facility] | [address] | [place] [address] | | | [facility] | | | | | HEALTH + HEALING | | | | + + + + + [facility] - COMPLETE METABOLIC SET (03/10/2019 7:04 AM PDT) + +---------+ + + + | Component | Value | Ref Range | Performed | Pathologist | | | | | At | Signature | + +---------+ + + + | GLUCOSE, | 95 | 70 - 99 mg/dL | [facility] | | | PLASMA | | | LABORATORY | | | (LAB) | | | SERVICES, | | | | | | [facility] | [facility] | [facility] + | | | | | | HEALING | | + +---------+ + + + | BUN, PLASMA | 8 | 6 - 20 mg/dL | [facility] | | | (LAB) | | | LABORATORY | | | | | | SERVICES, | | | | | | [facility] | [facility] + | | | | | | HEALING | | + +---------+ + + + | CREATININE | 0.66 | 0.60 - 1.10 | [facility] | [...] +---------+ + + + | SODIUM, | 140 | 136 - 145 | [facility] | | | PLASMA | | mmol/L | LABORATORY | | | (LAB) | | | SERVICES, | | | | | | [facility] | | | | [facility] + | | | | | | HEALING | | + +---------+ + + + | POTASSIUM, | 3.3 [...] +---------+ + + + | TOTAL | 7.4 | 6.4 - 8.2 g/dL | [facility] | | | PROTEIN, | | | LABORATORY | | | PLASMA | | | SERVICES, | | | (LAB) | | | [facility] | | | | | | [facility] + | | | | | | HEALING | | + +---------+ + + + | ALBUMIN, | 3.8 | 3.5 - 4.7 g/dL | [facility] | | | PLASMA | | | LABORATORY | | | (LAB) | | | SERVICES, | | | | | | [facility] | | | | | | [facility] + | | | | | | HEALING | | + +---------+ + + + | ALK PHOS | 91 | 42 - 98 U/L | [facility] | | | | | | LABORATORY | | | | | | SERVICES, | | | | | | [facility] | | | | [facility] + | | | | | | HEALING | | + +---------+ + + + | AST(SGOT) | 18 | <=41 U/L | [facility] | | [...] +---------+ + + + | ANION | 9 | 4 - 11 mmol/L [...] MDRD equation recommended by the National | [facility] | | Kidney Disease Education Program. [...] LABORATORY | [address] | [place] [address] | | | SERVICES, [facility] | | | | | HE[facility] + HEALING | | | | + + + + + LDH TOTAL, PLASMA (03/10/2019 7:04 AM PDT) + +---------+ + + + | Component | Value | Ref Range | Performed | Pathologist | | | | | At | Signature | + +---------+ + + + | LD TOTAL, | 193 | <=250 U/L | [facility] | | [...] | + + + + + | [facility] | [address] | [place] [address] | | | SERVICES, [facility] | | | | | HEALTH + HEALING | | | | + + + + + documented in this encounter Visit Diagnoses + + | Diagnosis | + + | MDS (myelodysplastic syndrome) (HCC) - Primary Myelodysplastic syndrome, unspecified | + + documented in this encounter Administered Medications + +--------+ +--------+------+------+ | Medication Order | MAR | Action | Dose | Rate | Site | | | Action | Date | | | | + +--------+ +--------+------+------+ | potassium chloride SR | Given | 03/10/20 | 40 mEq | | | | (KLOR-CON) tablet 40 mEq 40 mEq, | | 19 8:47 | | | | | oral, ONCE, 1 dose, [facility] 03/10/19 | | AM PDT | | | | | at 0845 | | | | | | + +--------+ +--------+------+------+ +---+---+ | | | +---+---+ documented in this encounter"
--- OUTSIDE RECORDS SUMMARY | ~2020-03-12 | XMS | Encounter Summary ---
Demographics + + + | Address | [address] | | | [place] [address] | + + + | Home Phone [...] + +------+ + | Care Director Of Operations For Therapy Name | Role | Phone | + +------+ + | Meredith Sanchez | PCP | | + +------+ + Encounter Details +--------+ + + + + | Date | Type | Department | Care Team | Description | +--------+ + + + + | 02/21/ | Social Psychologist | [facility] | Sejal De La Torre | | | 2019 | | Clinics at S | N, DO [address] | | | | | [facility] [address] | | | | | [place] [place] for | [place], [place] | | | | | Health and Healing, | [address] | | | | | [address] | [phone] | | | | | [place], [place] | | | | | | [address] | | | | | | [phone] | | | +--------+ + + + [...]
--- OUTSIDE RECORDS SUMMARY | ~2020-03-12 | XMS | Encounter Summary ---
Demographics + + + | Address | [address] | | | [place] [address] | + + + | Home Phone [...] Team Providers + +------+ + | Care Signal Processing Engineer Name | Role | Phone | + +------+ + | Meredith Sanchez | PCP | | + +------+ + Encounter Details +--------+ + + + + | Date | Type | Department | Care Team | Description | +--------+ + + + + | 07/01/ | Pharmacy | [facility] | | | | 2019 | Visit | [facility] | | | | | | [address] | | | | | | Mailcode: [place] | | | | | | [facility] | | | | | | Healing, [address] | | | | | | [place], [place] | | | | | | [address] | | | | | | [phone] | | | +--------+ + + + [...]
--- OUTSIDE RECORDS SUMMARY | ~2020-03-12 | XMS | Encounter Summary ---
Demographics + + + | Address | [address] | | | [place] [address] | + + + | Home Phone [...] Team Providers + +------+ + | Care Hop Weigher Name | Role | Phone | + +------+ + | Meredith Sanchez | PCP | | + +------+ + Encounter Details +--------+ + + + + | Date | Type | Department | Care Team | Description | +--------+ + + + + | 08/04/ | Pharmacy | Pharmacy @ [facility] | | | | 2019 | Visit | [address] | | | | | | [address] Mailcode: | | | | | | [facility] | | | | | | and Healing, | | | | | | [address] | | | | | | [place], [place] | | | | | | [address] | | | +--------+ + + + [...]
--- OUTSIDE RECORDS SUMMARY | ~2020-03-12 | XMS | Encounter Summary ---
Demographics + + + | Address | [address] | | | [place] [address] | + + + | Home Phone [...] Team Providers + +------+ + | Care Public Policy Mediator Name | Role | Phone | + +------+ + | Meredith Sanchez | PCP | | + +------+ + Reason for Visit + +--------+ + | Reason | Onset | Comments | | | Date | | + +--------+ + | Medication | 02/12/ | [facility] | | Adjustment | 2019 | | [...] | [place]) | | | | [facility] for | [place], [place] | | | | | Health and Healing, | [address] | | | | | [address] | [phone] | | | | | [place], [place] | | | | | | [address] | | | | | | [phone] | | | +--------+ + + + [...] Encounter - Tayo Osborne MA - 02/13/2020 2:43 PM PDTFormatting of this no te might be different from the original. Result Follow-up CSA level: Lab Results Component Value Date FK506 10.0 02/13/2020 Nona will be contacted to change dose from 0.5 mg every morning to 0.5 mg every morning a nd take nothing on Thu, Sat per Dr De La Torre starting on 02/13/20 (date). Nona and/or her caregiver have been contacted and were able to provide verbal read back o f these instructions. Initial Assessment Nona Hopper's specialty finishing utility person for today is patient, Nona Hopper, and her conta ct phone number for today 02/12 is: [phone]. Nona has been advised of when to expect a confirmation call regarding any necessary dose adjustments: yes. Nona was asked to contact this clinic if she has not received a confirma tion call within 24 hours. Nona reports she currently takes Tacrolimus 0.5 mg every morning. This is the correct dos e according to her most recent dose adjustment. Nona took her last dose at 1000 (time) on 02/12/20 (date). documented in this encounter Plan of Treatment Not on filedocumented as of this encounter Visit Diagnoses Not on filedocumented in this encounter"
--- OUTSIDE RECORDS SUMMARY | ~2020-03-12 | XMS | Encounter Summary ---
Demographics + + + | Address | [address] | | | [place] [address] | + + + | Home Phone | | + + + | Preferred Language | Unknown | + + + | Marital Status | Single | + + + | Voodoo Affiliation | NRP | + + + [...] Team Providers + +------+ + | Care Cutting And Splicing Supervisor Name | Role | Phone | + +------+ + | Meredith Sanchez | PCP | | + +------+ + Reason for Visit Other (Routine) +--------+--------+ + + + + [...] | | | | | (HCC) | [place], [place] | Healing, | | | | | Procedures | [address] | [address] | | | | | DC | Phone: | [place], [place] | | | | | OFFICE/OUTPT | [phone] | [address] | | | | | | Fax: | Phone: | | | | | VISIT,EST,LE | [phone] | [phone] | | | | | VL IV DC | | Fax: | | | | | EST PATIENT | | [phone] | | | | | LEVEL V | | | +--------+--------+ + + + + Encounter Details +--------+ + + + + | Date | Type | Department | Care Team | Description | +--------+ + + + + | 07/25/ | Hospital | [facility] | | | | 2020 | Encounter | Clinics at S | | | | | | [facility] [address] | | | | | | [facility] for | | | | | | Health and Healing, | | | | | | [address] | | | | | | [place], [place] | | | | | | [address] | | | | | | [phone] | | | +--------+ + + + [...] + + + | Blood Pressure | 137/71 | 07/25/2019 3:18 PM | | | | | PST | | + + + + + | Pulse | 88 | 07/25/2019 3:18 PM | | | | | PST | | + + + + + | Temperature | 36.9 C (98.5 F) | 07/25/2019 3:18 PM | | | | | PST | | + + + + + | Respiratory Rate | - | - | | + + + + + | Oxygen Saturation | 98% | 07/25/2019 3:18 PM | | | | | PST | | + + + + + | Inhaled Oxygen | - | - | | | Concentration | | | | + + + + + | Weight | 56 kg (123 lb 8 oz) | 07/25/2019 3:18 PM | | | | | PST | | + + + + + | Height | - | - | | + + + + + | Body Mass Index | 22.78 | 07/08/2019 4:32 PM | | | [...] documented as of this encounter Progress Notes Janee Merchant RN - 07/25/2019 3:40 PM PSTINFUSION NURSING NOTE Allergies: Nona is allergic to cefepime and sulfa (sulfonamide antibiotics). Narrative: Pt ambulated into clinic accompanied by her friend/caregiver. Labs drawn in Fast Track. P t is here for supportive care. Nursing Assessment: Fever/Chills/Infection: Denies SOB / Cough: Denies Dizziness/Lightheaded/Fatigue: Denies Signs/Symptoms Bleeding: Denies Neuropathy: Denies Mucositis: Denies Nausea/Vomiting: Denies n/v Appetite: Very good. Diarrhea/Constipation: Denies PO Fluid Intake: At least 2L daily. Rash/Skin sores/Edema: Denies Urinary Issues: Denies Pain: Denies Vascular Access: Pt has ASHER Rios. Dressing change due on 07/28/19. Per Orders: Infusion Plan: Magnesium Sulfate 4 gm in 100 mL NS infused over 2 hours per supportive care orders for a m agnesium level of 1.5. For infusion details, see MAR. Potassium level 5.3. Pt instructed to hold potassium dose until after seeing provider on hi07/28/19 per Devi Craig NP. Pt verbalized understanding. Discharge: Patient was reminded to call clinic with temp > 100.4, chills, s/s of bleeding or uncontrol led N/V/D/C. Patient d/c d ambulatory with friend/caregiver. JANEE MERCHANT RN documented in this encounter Plan of Treatment Not on filedocumented as of this encounter Procedures + +--------+ + + + | Procedure Name | Priori | Date/Time | Associated Diagnosis | Comments | | | ty | | | | + +--------+ + + + | [facility] - COMPLETE | Routin | 07/25/2019 | S/P cord blood | Results for this | | METABOLIC SET | e | 2:57 PM | transplantation MDS | procedure are in the | | | | PST | (myelodysplastic | results section. | | | |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) | | + +--------+ + + + documented in this encounter Results [facility] - COMPLETE METABOLIC SET (07/25/2019 2:57 PM PST) + +---------+ + [...] +---------+ + + + | CREATININE | 0.77 | 0.60 - 1.10 | [facility] | [...] | | | LABORATORY | | | [place] | | | SERVICES, | | | [...] +---------+ + + + | SODIUM, | 137 | 136 - 145 | [facility] | | | PLASMA | | mmol/L | LABORATORY | | | (LAB) | | | SERVICES, | | | | | | [facility] | | | | | | HE[facility] + | | | | | | HEALING | | + +---------+ + + + | POTASSIUM, | 5.3 (H) | 3.4 - 5.0 | [facility] | [...] +---------+ + + + | ALBUMIN, | 3.4 [...] + + + | ALK PHOS | 99 (H) | 42 - 98 U/L | [facility] | | | | | | LABORATORY | | | | | | SERVICES, | | | | | | [facility] | | | | | | HEALTH + | | | | | | HEALING | | + +---------+ + + + | AST(SGOT) | 19 | <=41 U/L | [facility] | | [...] +---------+ + + + | BUN/CREATIN | 35 (H) | 8 - 25 | [facility] | | | INE RATIO | | | LABORATORY | | | | | | SERVICES, | | | | | | [facility] | | | | | | [facility] + | | | | | | HEALING | | + +---------+ + + + | GLOBULIN | 3.1 | 2.3 - 3.5 gm/dL | [facility] [...] MDRD equation recommended by the National | [facility] | | Kidney Disease Education Program. Estimated [...] | + + + + + | [facility] | [address] | [place] [address] | | | [facility], [facility] | | | | | HEALTH [...] in water IV | New Bag | 07/25/19 | 4 g | | | | (RTU) 4 g 4 g, intravenous, | | 20 3:48 | | | | | ONCE, 1 dose, 07/25/19 at 1545 | | PM PST | | | | + +---------+ +------+------+------+ +---+---+ | | | +---+---+ documented in this encounter"
--- OUTSIDE RECORDS SUMMARY | ~2020-03-12 | XMS | Encounter Summary ---
Demographics + + + | Address | [address] | | | [place] [address] | + + + | Home Phone [...] | Author | [facility] | + + + | Organization | [facility] | + + + | Address | Unknown | + + + | Phone | Unavailable | + + + Support + + +---------+ + | Name | Relationship | Address | Phone | + + +---------+ + | Claudia Cota | ECON | Unknown | | + + +---------+ + Care Team Providers + +------+ + | Care Captain'S Assistant Name | Role | Phone | + +------+ + | Meredith Sanchez | PCP | | + +------+ + Reason for Visit + + + | Reason | Comments | + + + | Lab Draw | Gro[facility]ong | + + + | Dressing change | Groshong | + + + | Intravenous infusion | 1L NS, 8g Mag | + + + | Transfusion | prbc's | + + + Other (Routine) +--------+--------+ [...] | | | | | syndrome) | [facility] | Health and | | | | | (HCC) | [place], [place] | Healing, | | | | | Procedures | [address] | [address] | | | | | [place] | Phone: | [place], [place] | | | | | OFFICE/OUTPT | [phone] | [address] | | | | | | Fax: | Phone: | | | | | VISIT,EST,LE | [phone] | [phone] | | | | | VL IV [place] | | Fax: | | | | | EST PATIENT | | [phone] | | | | | LEVEL V | | | +--------+--------+ + + + + Encounter Details +--------+ + + + + | Date | Type | Department | Care Team | Description | +--------+ + + + + | 06/03/ | Hospital | [facility] | | | | 2019 | Encounter | Clinics at S | | | | | | [facility] [address] | | | | | [address] [facility] for | | | | | | Health and Healing, | | | | | | [address] | | | | | | [place], [place] | | | | | | [address] | | | | | | [phone] | | | +--------+ + + + [...] + + + | Blood Pressure | 106/63 | 06/03/2019 11:55 AM | | | | | PST | | + + + + + | Pulse | 77 | 06/03/2019 11:55 AM | | | | | PST | | + + + + + | Temperature | 36.7 C (98 F) | 06/03/2019 11:55 AM | | | | | PST | | + + + + + | Respiratory Rate | 16 | 06/03/2019 11:55 AM | | | | | PST | | + + + + + | Oxygen Saturation | 96% | 06/03/2019 11:55 AM | | | | | PST | | + + + + + | Inhaled Oxygen | - | - | | | Concentration | | | | + + + + + | Weight | 60.4 kg (133 lb 3.2 | 06/03/2019 9:37 AM | | | | oz) | PST | | + + + + + | Height | - | - | | + + + + + | Body Mass Index | 23.87 | 04/15/2019 1:50 PM | | | [...] encounter Progress Notes Kerline Braden RN - 06/03/2019 9:30 AM PST Assessment Patient arrives to clinic walking independently. Patient states She is feeling very tired t josé luis. 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 Fever/Chills/Infection: No, did report a temp to the provider of 100 a few nights ago. Orde rs place for blood cultures and were drawn from the white lumen today. SOB / Cough: yes, has SOB when she is getting up and doing things around their place. Fatigue/Dizziness/Lightheaded: Yes, continues to experience significant fatigue. Denies any dizziness or lightheadedness. Signs/Symptoms Bleeding: No Neuropathy: No Mucositis: No Nausea/Vomiting: Yes, ongoing nausea. Appetite: "not great" Diarrhea/Constipation: No PO Fluid Intake: Maybe 1L yesterday. Urinary Issues: No Rash/Skin/Edema: No Pain: No Lab Groshong accessed per protocol. Good blood return noted. Appropriate waste discarded. Meghna portillo drawn and sent. Groshong pulse flushed with 20 mL NS. Immunosuppressant Patient reports holding their dose of tacrolimus today. They report taking 1mg BID. This ma tches the medication list. Confirmed with patient and caregiver that we have the correct con tact number for their medication change calls. Dressing [...] level of 1.2. For infusion details, see AUG. Transfusion/Infusion Lab Results Component Value Date HCT 22.9 06/03/2019 HB 7.6 06/03/2019 Orders to transfuse PRBC product for a [...] ONC Lines & Transf usions doc flowsheet. Oral potassium chloride 40 meq administered per supportive care orders for a potassium leve l of 3.3. For details, see MAR. Discharge Line care provided, see Flowsheet for details. Patient was instructed to check out at the [employer] ront desk prior to leaving the clinic. Patient d/c d ambulatory in stable condition. Next appointment scheduled 06/07/19 at 10:40 am. Kerline Braden RN documented in this enc ounter Plan of Treatment + + +--------+ + + | Name | Type | Priori | Associated Diagnoses | Order Schedule | | | | ty | | | + + +--------+ + + | RBC MORPHOLOGY | Lab - | Routin | MDS | 06/03/2019 until | | | [facility] | e | (myelodysplastic | discontinued, 1 | | | Performable |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) S/P | completed | | | s | | cord blood | | | | | | transplantation | | + + +--------+ + + documented as of this encounter Procedures + +--------+ + + + | Procedure Name | Priori | Date/Time | Associated Diagnosis | Comments | | | ty | | | | + +--------+ + + + | CULTURE, BLOOD BACTI | Routin | 06/03/2019 | MDS | Results for this | | & YEAST JEFF | e | 11:37 AM | (myelodysplastic | procedure are in the | | | | PST | syndrome) ([facility]) S/P | results section. | | | | | cord blood | | | | | | transplantation | | + +--------+ + + + | CULTURE, BLOOD BACTI | Routin | 06/03/2019 | MDS | Results for this | | & YEAST | e | 11:37 AM | (myelodysplastic | procedure are in the | | | | PST | syndrome) ([facility]) S/P | results section. | | | | | cord blood | | | | | | transplantation | | + +--------+ + + + | HB-LAB CROSSMATCH, | Routin | 06/03/2019 | S/P cord blood | Results for this | | IMMEDIATE SPIN | e | 10:52 AM | transplantation | procedure are in the | | | | PST | | results section. | + +--------+ + + + | [facility] - MAGNESIUM, | Routin | 06/03/2019 | MDS | Results for this | | PLASMA | e | 9:32 AM | (myelodysplastic | procedure are in the | | | | PST | syndrome) ([facility]) S/P | results section. | | | | | cord blood | | | | | | transplantation | | + +--------+ + + + | [facility] - PHOSPHORUS, | Routin | 06/03/2019 | MDS | Results for this | | PLASMA | e | 9:32 AM | (myelodysplastic | procedure are in the | | | | PST | syndrome) ([facility]) S/P | results section. | | | | | cord blood | | | | | | transplantation | | + +--------+ + + + | [facility] - LDH TOTAL, | Routin | 06/03/2019 | MDS | Results for this | | PLASMA | e | 9:32 AM | (myelodysplastic | procedure are in the | | | | PST | syndrome) ([facility]) S/P | results section. | | | | | cord blood | | | | | | transplantation | | + +--------+ + + + | RBC MORPHOLOGY | Routin | 06/03/2019 | MDS | Results for this | | | e | 9:32 AM | (myelodysplastic | procedure are in the | | | | PST | syndrome) ([facility]) S/P | results section. | | | | | cord blood | | | | | | transplantation | | + +--------+ + + + | CBC AND AUTO DIFF | Routin | 06/03/2019 | MDS | Results for this | | | e | 9:32 AM | (myelodysplastic | procedure are in the | | | | PST | syndrome) ([facility]) S/P | results section. | | | | | cord blood | | | | | | transplantation | | + +--------+ + + + | [facility] - COMPLETE | Routin | 06/03/2019 | MDS | Results for this | | METABOLIC SET | e | 9:32 AM | (myelodysplastic | procedure are in the | | | | PST | syndrome) ([facility]) S/P | results section. | | | | | cord blood | | | | | | transplantation | | + +--------+ + + + | [facility] CBC W | Routin | 06/03/2019 | MDS | Results for this | | DIFFERENTIAL | e | 9:32 AM | (myelodysplastic | procedure are in the | | | | PST | syndrome) ([facility]) S/P | results section. | | | | | cord blood | | | | | | transplantation | | + +--------+ + + + | CMV PCR | Routin | 06/03/2019 | MDS | Results for this | | QUANTITATION, PLASMA | e | 9:32 AM | (myelodysplastic | procedure are in the | | | | PST | syndrome) ([facility]) S/P | results section. | | | | | cord blood | | | | | | transplantation | | + +--------+ + + + | TACROLIMUS, WHOLE | Routin | 06/03/2019 | MDS | Results for this | | BLOOD | e | 9:32 AM | (myelodysplastic | procedure are in the | | | | PST | syndrome) ([facility]) S/P | results section. | | | | | cord blood | | | | | | transplantation | | + +--------+ + + + documented in this encounter Results CULTURE, BLOOD BACTI & YEAST JEFF (06/03/2019 11:37 AM PST) + + + + + + | Component | Value | Ref Range | Performed | Pathologist | | | | | At | Signature | + + + + + + | CULTURE | Final Report:No Bacteria | | [facility] | | | RESULT | or Yeast isolated at 5 | | LABORATORY | | | | days. | | SERVICES, | | | | | | CORE | | + + + + + + + + | Specimen | + + | Blood | + + + + + + + | Performing | Address | City/State/Zipcode | Phone Number | | Organization | | | | + + + + + | [facility] | [address] | [place] [address] | | | SERVICES, CORE | [address] | | | + + + + + PRODUCT - RED CELLS LEUKOREDUCED (06/03/2019 10:52 AM PST) + + + + + + | Component | Value | Ref Range | Performed | Pathologist | | | | | At | Signature | + + + + + + | PRODUCT | -3 RED BLOOD CELLS | | [facility] | | | DESCRIPTION | LEUKOREDUCED IRRADIATED | | LABORATORY | | | | | | SERVICES, | | | | | | TRANSFUSION | | | | | | MEDICINE | | + + + + + + | PRODUCT | [id number] | | [facility] | | | UNIT [...] + + + + | EXPIRATION | [id number] | | [facility] | | | DATE [...] + + + + | BLOOD | [id number] | | [facility] | | | PRODUCT [...] [facility] | [address] | [place] [address] | | | SERVICES, | [address] | | | | TRANSFUSION MEDICINE | | | | + + + + + RBC MORPHOLOGY (06/03/2019 9:32 AM PST) + + + [...] + + + + + + | MICROCYTOSI | 1+(10-25cells/HPF) | | [facility] | | | S | | | LABORATORY | | | | | | SERVICES, | | | | | | C[facility] FOR | | | | | | HEALTH + | | | | | | HEALING | | + + + + + + | POLYCHROMAS | 1+ (<1-2cells/HPF) | | [facility] | | | IA [...] [facility] | [address] | [place] [address] | | | SERVICES, CENTER FOR | | | | | HEALTH + HEALING | | | | + + + + + CBC AND AUTO DIFF (06/03/2019 9:32 AM PST) + + + + + + | Component | Value | Ref Range | Performed | Pathologist | | | | | At | Signature | + + + + + + | WHITE CELL | 5.77 | 3.50 - 10.80 | [facility] | | | COUNT | | K/cu mm | LABORATORY | | | | | | SERVICES, | | | | | | [facility] | | | | | | [facility] + | | | | | | HEALING | | + + + + + + | RED CELL | 2.79 (L) | 4.00 - 5.20 | [facility] [...] + + + + | HEMATOCRIT | 22.9 (L) | 36.0 - 46.0 % | [...] + + + | RDW SD | 41.9 | 35.1 - 46.3 fL | [facility] | | | | | | LABORATORY | | | | | | SERVICES, | | | | | | [facility] | | | | | | [facility] + | | | | | | HEALING | | + + + + + + | PLATELET | 55 (L)Comment: | 150 - 400 K/cu | [...] + + + + | NEUTROPHIL | 59.4 | 50.0 - 70.0 % | [facility] | | | % | | | LABORATORY | | | | | | SERVICES, | | | | | | [facility] | | | | | | [facility] + | | | | | | HEALING | | + + + + + + | LYMPHOCYTE | 10.9 (L) | 18.0 - 42.0 % | [facility] | | | % | | | LABORATORY | | | | | | SERVICES, | | | | | | [facility] | | | | | | [facility] + | | | | | | HEALING | | + + + + + + | MONOCYTE % | 19.2 (H) | 3.5 - 9.0 % | [facility] | | | | | | LABORATORY | | | | | | SERVICES, | | | | | | [facility] | | | | | | [facility] + | | | | | | HEALING | | + + + + + + | EOS % | 4.2 (H) | 1.0 - 3.0 % | [...] + + + + | IG% | 6.1 (H) | 0.0 - 1.0 % | [facility] | | | | | | LABORATORY | | | | | | SERVICES, | | | | | | [facility] | | | | | | [facility] + | | | | | | HEALING | | + + + + + + | NEUTROPHIL | 3.43 | 1.80 - 7.70 | [facility] | | | # | | K/cu mm | LABORATORY | | | | | | SERVICES, | | | | | | [facility] | | | | | | HE[facility] + | | | | | | HEALING | | + + + + + + | NEUTROPHIL | 3.43Comment: Preliminary | 1.80 - 7.70 | [facility] [...] + + + + | LYMPHOCYTE | 0.63 (L) | 1.00 - 4.80 | [facility] | | | # | | K/cu mm | LABORATORY | | | | | | SERVICES, | | | | | | [facility] | | | | | | HE[facility] + | | | | | | HEALING | | + + + + + + | MONOCYTE # | 1.11 (H) | 0.10 - 0.90 | [facility] [...] + + + + | IG# | 0.35 (H) | 0.00 - 0.10 | [facility] [...] LABORATORY | [address] | [place] [address] | | | [facility] | | | | | [...] 1.6 - 2.6 mg/dL | [facility] | | | LASMA | | | LABORATORY | | | | | | [facility], | | | | | | [facility] FOR | | | | | | [...] | + + + + + | [employer] [facility] | [address] | [place] [address] | | | [facility] | | | | | [...] [facility] | [address] | [place] [address] | | | SERVICES, CENTER FOR | | | | | HEALTH + HEALING | | | | + + + + + [facility] - COMPLETE METABOLIC SET (06/03/2019 9:32 AM [...] | | | LABORATORY | | | BENIN[facility] | | | SERVICES, | | | [...] + + + + | [facility] [employer] | [address] | [place] [address] | | | [facility] FOR | | | | | HEALTH + HEALING | | | | + + + + + [facility] - LDH TOTAL, PLASMA (06/03/2019 9:32 [...] + + + + | [facility] | [address] | [place] [address] | | | [facility] | | | | | HEALTH + HEALING | | | | + + + + + CMV PCR QUANTITATION, PLASMA (06/03/2019 9:32 AM PST) + + + [...] may not reflect true | [facility] | | biological changes and must be [...] determined by the [facility] | | | [facility]. It has not been cleared or approved by | | | the Food and Drug Administration. FDA approval is not required for | | | clinical use of this test, and therefore validation was done as | | | required under the requirements of the Clinical Laboratory Improvement | | | Act of 1988. The [facility] [employer] [facility] | | | Diagnostic Center is a fully licensed and/or accredited clinical | | | laboratory under [place], [place], and the [place] of [place]. | | + + + + + + + + | Performing | Address | City/State/Zipcode | Phone Number | | Organization | | | | + + + + + | [facility] | [address] | [place] [address] | | | DIAGNOSTIC | [address] | | | | LABORATORIES | | | | + + + + + TACROLIMUS, WHOLE BLOOD (06/03/2019 9:32 AM PST) + +---------+ + + + | Component | Value | Ref Range | Performed | Pathologist | | | | | At | Signature | + +---------+ + + + | TACROLIMUS | 4.6 (L) | 5.0 - 15.0 | [facility] | [...] + | Test performed by immunoassay using [employer] i2000. . | [facility] | | Samples [...] + + + + | [facility] | [address] | [place] [address] | | | SPECIAL MENG | [address] [...] in water IV | New Bag | 06/03/20 | 2 g | | | | (RTU) 2 g 2 g, intravenous, | | 19 9:51 | | | | | ONCE, 1 dose, [facility] 06/03/19 at 0945 | | AM PST | | | | + +---------+ +------+------+------+ +---+---+ | | | +---+---+ + +---------+ +-----+---+---+ | magnesium sulfate in water IV | New Bag | 06/03/20 | 2 g | | | | (RTU) 2 g 2 g, intravenous, | | 19 10:40 | | | | | ONCE, 1 dose, [facility] 06/03/19 at 1030 | | AM PST | | | | + +---------+ +-----+---+---+ +---+---+ | | | +---+---+ + +---------+ +-----+---+---+ | magnesium sulfate in water IV | New Bag | 06/03/20 | 4 g | | | | (RTU) 4 g 4 g, intravenous, | | 19 11:57 | | | | | ONCE, 1 dose, Thu06/03/19 at 1045 | | AM PST | | | | + +---------+ +-----+---+---+ +---+---+ | | | +---+---+ + +-------+ +--------+---+---+ | potassium chloride SR | Given | 06/03/20 | 40 mEq | | | | (KLOR-CON) tablet 40 mEq 40 mEq, | | 19 11:56 | | | | | oral, ONCE, 1 dose, Thu06/03/19 | | AM PST | | | | | at 1045 | | | | | | + +-------+ +--------+---+---+ +---+---+ | | | +---+---+ + +---------+ + +---+---+ | sodium chloride 0.9 % (NS) IV | New Bag | 06/03/20 | 1,000 mL | | | | infusion 1,000 mL, intravenous, | | 19 9:40 | | | | | NEEDED, Starting 06/03/19 | | AM PST | | | | | at 0959, Until 06/04/19 at | | | | | | | 0629, decreased po intake, | | | | | | | dizziness | | | | | | + +---------+ + +---+---+ +---+---+ | | | +---+---+ documented in this encounter
--- OUTSIDE RECORDS SUMMARY | ~2020-03-12 | XMS | Encounter Summary ---
Demographics + + + | Address | [address] | | | [place] [address] | + + + | Home Phone [...] Team Providers + +------+ + | Care Mop Handle Assembler Name | Role | Phone | + +------+ + | Meredith Sanchez | PCP | | + +------+ + Reason for Visit + + + | Reason | Comments | + + + | New Patient Visit | | + + + Consultation (Routine) + + + + + + + | Status | Reason | Specialty | Diagnoses / | Referred By | Referred To | | | | | Procedures | Contact | Contact | + + + + + + + | Authorized | Specialty | Dermatology | Diagnoses | Wil, | [facility] | | | Services | | GVHD (graft | Sejal Meadows, | [address] [address] | | | Required | | versus host | DO [address] | | | | | disease) | Jon Valverde | [facility] | | | | | ([facility]) | [facility] | Health and | | | | | Procedures | [place], [place] | Healing, | | | | | CONSULT TO | [address] | Building [address], | | | | | DERM & DERM | Phone: | 16th Floor | | | | | SURGERY | [phone] | [facility] [place] | | | | | eval & treat | Fax: | [address] | | | | | | [phone] | Phone: | | | | | | | [phone] | | | | | | | Fax: | | | | | | | [phone] | + + + + + + + Encounter Details +--------+---------+ + + + | Date | Type | Department | Care Team | Description | +--------+---------+ + + + | 02/12/ | Office | Dermatology | Bartolo Jarrell, | Rash and other | | 2020 | Visit | Medical at [facility] [address] | nonspecific skin | | | | [address] | [place], [place] | eruption (Primary | | | | for Health and | [address] | Dx); | | | | Healing, Building 1, | [phone] | [facility]cbg-aaiwtv-bobp | | | | 16th Floor | | disease (HCC) | | | | [place], [place] | | | | | | [address] | | | | | | [phone] | | | +--------+---------+ + + + [...] of this encounter Patient Instructions Patient Instructions Jean Carlos Saravia MD - 02/13/2020 9:40 AM PDT-- Please do not apply tr iamcinolone 0.1% ointment (or any topical steroids) to your forearms. The bruising is from y our long-term use of prednisone. -- If the rash returns, you may apply triamcinolone 0.1% ointment twice daily until your sk in is smooth (up to 2 weeks), then stop. Repeat as needed -- We will call you with the biopsy results in about 1 week! [facility] DEPARTMENT OF DERMATOLOGY [address] [place] [address] [phone], BIOPSY WOUND CARE INSTRUCTIONS General Care Wound healing is most rapid if the area is kept moist with ointment and covered so that a s cab is not allowed to form. To help this occur: Please remove the bandage on the day following your procedure. Wash gently with a mild soap and water (in the shower is fine). If you have any crusts or pus, you may gently remove with a Q-tip or gauze. Spread a thin layer of Vaseline ointment on the wound and then cover with a fresh bandag e. Continue this routine until the area heals. You will know the area is healed when it is no longer moist or makes a scab. It will still be pink. If you have stitches, they should be removed in 10 to 14 days. If you are uncertain of when to return for suture removal, please contact the clinic. Pain is rare, but if present, try an dvux-hdl-pmanyjq pain medication such as Tylenol ev carlos four hours (if you are able to take this medication). If you are having a great deal of pain, please contact the clinic. Complications If bleeding occurs, apply firm pressure directly over the wound for 15 minutes (no peeki ng). Time yourself with a clock as this can feel like a long time. If it is still bleeding , please contact the clinic. Expect the area to become more red and tender during the first two days after the proced ure. This will gradually improve and is part of the normal wound healing process. Infectio n is a rare complication. If it occurs, it begins several days after the procedure. The ar ea will become increasingly red, swollen and tender instead of slowly improving. Please con tact the clinic if you think you may have an infection. Biopsy results It usually takes one to two weeks to be notified of biopsy results. If you have not hea rd about your results within two weeks, please contact the clinic and we will assist you. IF YOU HAVE ANY QUESTIONS, PLEASE CONTACT THE CLINIC AT [phone] After hours, please call the hospital turntable operator and ask for the on-call marketing team lead at [phone]. Please note: In addition to your office visit charges, you or your insurance company may be billed: For any additional physician fees, such as the biopsy procedure. documented in this encounter Progress Notes Jean Carlos Saravia MD - 02/13/2020 9:40 AM PDTFormatting of this note might be different fro m the original. 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 female who presents with history of MDS [facility] ([facility]/2019) who was referred to our clinic for evaluation of suspected lkpbj-zqegmd-kbcq disease. The patient was seen by Dr. Jarrell as an inpatient on 07/04/2019 for a rash located on the ears, back, upper extremities and dorsal arms. 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 Dermatology advised treatment with triamcinolone 0.1% ointment. Paul gaines recently, she notes that her face, neck, and upper extremities have been the worst areas o f involvement. She has treating with hydrocortisone 2.5% ointment, but reports this did not seem to help and caused a "burning" sensation on the skin. The patient notes she was advised to discontinue Ivory soap and start a gentle skin care regimen. Since her skin was still ir ritated despite switching soaps, she restarted Ivory soap, Vaseline as a moisturizer and vit sanders E oil. She believes this regimen (without topical steroids) has been the most helpful t hus far. The patient reports her rash has waxed and waned in severity since last March. Nona rep orts a recent flare of the rash, which essentially cleared with increasing prednisone to 15 mg TIW (and 10 mg on the intervening days). She has now been tapered to prednisone 10 mg karin ly. She reports her rash is currently very well-controlled today. With respect to systemic s ymptoms, reports she is feeling well overall. Denies fever, chills, weight loss, shortness o f breath, cough. She reports persistent loose, non-bloody stools. She has been evaluated by Gastroenterology, and EGD/flex sig were consistent with colitis and unlikely GVHD (pathology could not rule out low grade lower GI GVHD). Other than this she does not have any other specific lesions of concern today. Denies any o ther new lesions or change in established lesions. Also denies any other painful, itching, b urning, or bleeding lesions. The patient's dermatology intake form was reviewed, signed, and dated. Her relevant PMH, F H, and SH includes: RELEVANT PAST MEDICAL HISTORY: Personal history of dermatologic disease as noted above. RELEVANT FAMILY HISTORY: No family history of melanoma or non-melanoma skin cancer. SOCIAL HISTORY: EtOH: unknown Tobacco: none RELEVANT MEDICATIONS: Reviewed in Epic. ALLERGIES: Allergies Allergen Reactions Cefepime Rash Sulfa (Sulfonamide Antibiotics) Hives Review of Systems: Feeling generally well, no eye or mouth complaints. PHYSICAL EXAMINATION: There were no vitals taken for this visit. Well-developed, well-nourished female in no acute distress. Awake, alert and oriented. Pl easant and cooperative mood. A skin examination was performed including the scalp, face, eyelids, lips, neck, chest, justine k, abdomen, R+L arms, R+L hands, R+L legs and R+L feet. Findings were within normal limits except for the following: Carrillo skin type: I Hair: Brown -- Right angle of the mandible, right lateral neck, and left proximal upper extremity with scattered 2-3 mm smooth pink papules, some coalescing into plaques, <3% BSA -- Bilateral dorsal forearms with scattered ecchymoses Biopsy site 02/13/20 RELEVANT PATHOLOGY: Results for orders placed or performed in visit on 05/04/19 DERM PATHOLOGY Result Value Ref Range Clinical History Light pink, erythematous macules occasionally coalescing into patches on the ears, back, upper extensor extremities and dorsal hands. 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 Differential includes engraftment syndrome vs aGVHD vs drug eruption. Specimen Description Dermatopathology Case: [id number] Authorizing Provider: Bartolo Jarrell MD Collected: 05/04/2019 Ordering Location: Dermatology Medical at [facility] Received: 05/04/2019 [address] Pathologist: Jose Peace MD Specimen: Rt arm, punch biopsy Final Pathologic Diagnosis SPARSE VACUOLAR DERMATITIS. NOTE: The changes are exceedingly subtle, and not definitive, although in this setting, ear ly changes of WHFRJ-LVSLJU-YDXK DISEASE/ENGRAFTMENT SYNDROME is most likely. Clinical correl ation is nevertheless recommended. KPW:sw 05/05/19 Gross Description Received in formalin is a specimen labeled with the patient's name: A: Specimen is labeled "Right arm" and consists of a 4 mm punch of white-perez skin, cut to a depth of 3 mm. The surgical margin is inked blue; the tissue is bisected; and entirely subm itted in cassette A1. Microscopic Description There is a thinned epidermis, with very rare dyskeratotic keratinocytes. There is a spars e superficial perivascular, predominantly lymphocytic infiltrate and solar elastosis. Ancillary Information Analyte specific reagents are used in many laboratory tests necessary for standard medica l care. This test was developed and its performance characteristics determined by [facility] labor atories. It has not been cleared or approved by the US Food and Drug Administration (FDA). F does not require this test to go through premarket FDA review. This test is used for clin ical purposes. It should not be regarded as investigational or for research. This laboratory is certified under the Clinical Laboratory Improvement Amendments (CLIA) as qualified to pe [facility] high complexity clinical laboratory testing. If immunohistochemical analysis (IHC) was performed concurrently with flow cytometry, the IHC was done to allow assessment of immunoa rchitecture, which is not supplied by flow cytometry. Flow cytometry enables better assessme nt of clonality and antigen aberrancy than IHC. Appropriate positive controls and/or negativ e controls were used for all stains, including immunohistochemical stains, special stains, a nd in situ hybridization, and these reacted appropriately. ASSESSMENT AND PLAN: Nona Hopper is a 54 y.o. female who presents with history of MDS admitted for [facility] cord stem cell transplant (04/22/2019) who was referred to our clinic for evaluation of suspected mdatf-vbpuvd-vsxi disease. Previous skin biopsy from April 2019 revealed sparse vacuolar dermatitis, consistent with possible early GVHD versus engraftment syndrome. We di scussed that her presentation and skin eruption are most consistent with GVHD, which appears to be under adequate control at present. After discussion of risks/benefits of skin biopsy, including the risk that the pathology may not provide diagnostic clarity, the patient agree d to undergo repeat skin biopsy in clinic today. -- Continue gentle skin care, agree with liberal Vaseline as a moisturizer -- Advised patient to avoid application of topical steroids to her forearms (where ecchymos es are) given evidence of skin atrophy secondary to chronic prednisone -- For affected areas on the trunk and extremities, apply triamcinolone 0.1% ointment twice daily for two weeks, then decrease to twice weekly. -- For affected areas on the face, groin, and skin folds, apply hydrocortisone ointment twi ce daily for up to 10 days, then decrease to twice weekly. -- Discussed side effects including thinning of the skin, striae, and hypopigmentation -- 4 mm punch biopsy performed today; will contact patient with results and arrange for fur ther care if needed Procedure Note - Biopsy by Punch Technique Left elbow Prior to beginning the procedure the team paused to verify the patient's identity, as well as the procedure to be performed and the biopsy site. All equipment required was ready and available. The patient was positioned appropriately. After PARQ addressed and scar factors discussed, the area was prepped with an isopropyl alcohol pad. Anesthesia was obtained by rivas bcutaneous infusion of buffered 1% lidocaine with 1:100,000 epinephrine. The punch biopsy w as performed and the resultant defect closed with 4-0 nylon suture. Blood loss was minimal. The site was dressed with white petrolatum jelly and a bandage. Verbal and written wound c are instructions were given to the patient. Patient reports no pain after the procedure. --Suture(s) to be removed in 10-14 days. RETURN VISIT: Pending biopsy results Jean Carlos Saravia MD Resident Physician Department of Dermatology [facility] Associated attestation - Bartolo Jarrell MD - 02/13/2020 12:21 PM PDTI have personally rev iewed the patient's medical history, medications and allergies. I have personally examined t he patient. I have read and reviewed the resident physician's excellent note and agree with the assessment and plan. I was personally present for the entire procedure performed. documented in this encounter Miscellaneous Notes Addendum Note - Daquan Sequeira - 02/13/2020 9:40 AM PDT Addended by: DAQUAN SEQUEIRA on: 02/14 01:12 PM Modules accepted: Level of Service documented in this encoun ter Plan of Treatment Not on filedocumented as of this encounter Procedures + +--------+ + + + | Procedure Name | Priori | Date/Time | Associated Diagnosis | Comments | | | ty | | | | + +--------+ + + + | DERM PATHOLOGY | Routin | 02/13/2020 | Zlrtd-dtvvtm-fwwl | Results for this | | | e | 9:56 AM | disease (HCC) Rash | procedure are in the | | | | PDT | and other | results section. | | | | | nonspecific skin | | | | | | eruption | | + +--------+ + + + | MS PUNCH BIOPSY OF | Routin | 02/13/2020 | Rvqeo-niyref-jqzd | | | SKIN; SINGLE LESION | e | 9:50 AM | disease (HCC) Rash | | | | | PDT | and other | | | | | | nonspecific skin | | | | | | eruption | | + +--------+ + + + documented in this encounter Results DERM PATHOLOGY (02/13/2020 9:56 AM PDT) + + + + + + | Component | Value | Ref Range | Performed | Pathologist | | | | | At | Signature | + + + + + + | Clinical | 54 year old woman with | | [facility] | | | History | BMT, GVHD well | | DERMATOPATH | | | | controlled on prednisone | | OLOGY | | | | 10 mg daily. Heme Onc | | | | | | requesting biopsy to | | | | | | confirm GVHD. | | | | + + + + + + | Specimen | Dermatopathology | | [facility] | | | Description | | | DERMATOPATH | | | | | | OLOGY | | | | Case: [id number] | | | | | | | | | | | | | | | | | | Authorizing Provider: | | | | | | Bartolo Jarrell MD | | | | | | Collected: | | | | | | 02/13/2020 | | | | | | 0956 | | | | | | Ordering Location: | | | | | | Dermatology Medical | | | | | | at [facility] Received: | | | | | | 02/13/2020 | | | | | | 1035 | | | | | | Pathologist: | | | | | | Emily Stark | | | | | | Susanne Jama, | | | | | | | | | | | | | | | | | | | | | | | | | | | | | | MD | | | | | | | | | | | | | | | | | | | | | | | | | | | | | | Specimen: Lt elbow, | | | | | | punch biopsy | | | | | | | | | | | | | | | | | | | | | | | | | | | | + + + + + + | Final | TRACE SPONGIOTIC | | [facility] | Electronically | | Pathologic | DERMATITIS WITH SUBTLE | | DERMATOPATH | signed by | | Diagnosis | INTERFACE CHANGE.NOTE: | | OLOGY | Emily Stark | | | The findings are quite | | | Susanne Jama, | | | subtle and not specific. | | | MD on 02/14/2020 | | | The differential | | | at 8:19 PM | | | diagnosis includes early | | | | | | eczematous process, | | | | | | very mild | | | | | | bbpup-gvgbiy-zbim | | | | | | disease, viral exanthem, | | | | | | drug eruption and other | | | | | | causes of morbilliform | | | | | | eruptions. | | | | | | SJM:mm02/14/20 | | | | + + + + + + | Gross | Received in formalin is | | [facility] | | | Description | a specimen labeled with | | DERMATOPATH | | | | the patient's name:A: | | OLOGY | | | | Specimen is labeled "L | | | | | | elbow" and consists of a | | | | | | 4 mm punch of perez-red | | | | | | skin, cut to a depth of | | | | | | 2 mm. The surgical | | | | | | margin is inked blue; | | | | | | the tissue is bisected; | | | | | | and entirely submitted | | | | | | in cassette A1. | | | | + + + + + + | Microscopic | There is a mostly | | [facility] | | | | superficial, | | DERMATOPATH | | | Description | perivascular and | | OLOGY | | | | interstitial, | | | | | | predominantly | | | | | | lymphocytic infiltrate | | | | | | with a few extravasated | | | | | | erythrocytes. Rare | | | | | | lymphocytes extend into | | | | | | the overlying epidermis | | | | | | where there is mild | | | | | | spongiosis, basal | | | | | | vacuolization with rare | | | | | | suggestion of | | | | | | dyskeratosis, and | | | | | | parakeratosis. | | | | + + + + + + | Ancillary | Analyte specific | | [facility] | | | Information | reagents are used in | | DERMATOPATH | | | | many laboratory tests | | OLOGY | | | | necessary for standard | | | | | | medical care. This test | | | | | | was developed and its | | | | | | performance | | [...] + | Specimen | + + | Biopsy | + + + + + + + | Performing | Address | City/State/Zipcode | Phone Number | | Organization | | | | + + + + + | [facility] | [id number] | [place] [address] | | | DERMATOPATHOLOGY | [address] | | | + + + + + | [facility] | [id number] | [place] [address] | | | DERMATOPATHOLOGY | [address] | | | + + + + + documented in this encounter Visit Diagnoses + + | Diagnosis | + + | Rash and other nonspecific skin eruption - Primary | + + | Csuku-csxjmk-rdsz disease (HCC) Complications of transplanted organ, unspecified site | + + documented in this encounter
--- OUTSIDE RECORDS SUMMARY | ~2020-03-12 | XMS | Encounter Summary ---
Demographics + + + | Address | [address] | | | [place] [address] | + + + | Home Phone [...] Team Providers + +------+ + | Care Fire Fighting Equipment Specialist Name | Role | Phone | + +------+ + | Meredith Sanchez | PCP | | + +------+ + Reason for Visit + +--------+ + | Reason | Onset | Comments | | | Date | | + +--------+ + | Procedure | 07/27/ | | | | 2019 | | + +--------+ + Other (Routine) [...] | | Oncology / | | Sam, VALIDATION LEADER | Sam, VALIDATION LEADER | | | | Hematology | Myelodysplas | [address] | [address] | | | | Malignancy | tic | [place] | | | | | syndrome, | Rd | Rd [place], | | | | | unspecified | [place], [place] | [place] | | | | | Procedures | [address] | [address] | | | | | AR BONE | Phone: | Phone: | | | | | MARROW; | [phone] | [phone] | | | | | ASPIRATION | Fax: | Fax: | | | | | ONLY AR | [phone] | [phone] | | | | | BONE MARROW | | | | | | | BX, | | | | | | | NEEDLE/TROCA | | | | | | | R AR DX | | | | | | | BONE MARROW | | | | | | | BX & ASPIR | | | + +--------+ + + + + Encounter Details +--------+---------+ + + + | Date | Type | Department | Care Team | Description | +--------+---------+ + + + | 07/28/ | Office | [facility] | Sam Baron FNP | 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 1. Keep your dressing dry for the next 24 hours; no shower or bath until tomorrow. 2. If you notice any signs of infection at the biopsy site (redness, tenderness, drainage) , please call the Triage nurse at ([phone]) or BMT person on-call ([phone]) after hours. 3. You received Ativan (lorazepam), which is a sedating medication, so you may not drive fo r at least 8 hours. documented in this encounter Progress Notes Sam Baron FNP - 07/28/2019 11:00 AM PST07/28/2019 Procedure Note Primary attending in [facility] clinic: Dr. Sejal De La Torre PCP: LACY Perez Procedure: Bone marrow aspirate and biopsy w/medications for anxiolysis Indications: Analy Hopper is a 53 y.o. 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 F/up on 08/04/19). Bone marrow biopsy and aspiration procedure was performed using the following instruments: Description #1: [employer] Worker Serial ID #1: [id number] The MA for this procedure today was AMITA Shields. Mildred Wilson was the bone marrow tech for this procedure today. Description: Written consent for bone marrow aspirate and biopsy was obtained from the fuad ent following a brief discussion regarding the risks and benefits of the procedure. She was then premedicated for anxiolysis with Ativan 1mg IV. She was placed in a prone position, wit h 1 pillow under her pelvis. The skin over her left posterior iliac crest was cleansed with betadine and draped in a sterile manner. Xylocaine 1% was used for local anesthesia, approxi mately 10mL of Xylocaine was injected. A scalpel was used to enlarge the insertion site. A n OnControl 4 inch aspirate needle was inserted with the OnCAnatexis bull driver, and I felt the cl assic drop into the marrow space. The first aspirate was noted to have spicules and was sub mitted for morphology studies. A second aspirate was obtained in a non-heparinized syringe and submitted for FISH X:Y, flow cytometry and cytogenetics. A third aspirate was obtained in a non-heparinized syringe and submitted for GeneTrails. A fourth aspirate was obtained i n a non-heparinized syringe and submitted for VNTR. A total of 10 mL of bone marrow was asp irated. The OnControl 4 inch needle was advanced 2cm using the OnCAnatexis bull driver. A core bi opsy was not captured. The OnControl 4 inch needle was was re-inserted into prior entrance site, and I felt the cl assic drop into the marrow space. The stylette was removed. The OnControl 4 inch needle was then advanced 2cm using the OnCAnatexis bull driver. A core biopsy measuring approximately 2 cm w as obtained and submitted for morphology studies. Hemostasis was achieved and a pressure dressing was applied. The patient was observed for 2 0 minutes post-procedure for signs of bleeding. Pt tolerated the procedure well without comp lications. The results of this procedure will take approximately 7 to 10 days for full analysis. Espinoza jaxon, preliminary results should be available within the next 3 to 4 business days. [facility] [address] [place] [address] Mailcode: [id number] [place] [address] documented in this encounter Plan of Treatment Not on filedocumented as of this encounter Procedures + +--------+ + + + | Procedure Name | Priori | Date/Time | Associated Diagnosis | Comments | | | ty | | | | + +--------+ + + + | AR DX BONE MARROW BX | Routin | 07/28/2019 | MDS | | | & ASPIR | e | 10:29 AM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| PST | syndrome) ([facility]) S/P | | | | | | cord blood | | | | | | transplantation | | + +--------+ + + + | LEUKEMIA/LYMPHOMA | Routin | 07/28/2019 | MDS | Results for this | | MARKERS - BONE | e | 10:17 AM | (myelodysplastic | procedure are in the | | MARROW | | PST | syndrome) ([facility]) S/P | results section. | | | | | cord blood | | | | | | transplantation | | + +--------+ + + + | ENGRAFTMENT | Routin | 07/28/2019 | MDS | Results for this | | POST-TRANSPLANT, | e | 8:27 AM | (myelodysplastic | procedure are in the | | BONE MARROW | | PST | syndrome) ([facility]) S/P | results section. | | | | | cord blood | | | | | | transplantation | | + +--------+ + + + | FLT3 ITD, BONE | Routin | 07/28/2019 | MDS | Results for this | | MARROW | e | 8:27 AM | (myelodysplastic | procedure are in the | | | | PST | syndrome) ([facility]) S/P | results section. | | | | | cord blood | | | | | | transplantation | | + +--------+ + + + | COMPREHENSIVE HEME | Routin | 07/28/2019 | MDS | Results for this | | PANEL SEQ, BONE | e | 8:27 AM | (myelodysplastic | procedure are in the | | MARROW | | PST | syndrome) ([facility]) S/P | results section. | | | | | cord blood | | | | | | transplantation | | + +--------+ + + + | GENETRAILS | Routin | 07/28/2019 | MDS | Results for this | | COMPREHENSIVE HEME | e | 8:27 AM | (myelodysplastic | procedure are in the | | PANEL, BONE MARROW | | PST | syndrome) ([facility]) S/P | results section. | | | | | cord blood | | | | | | transplantation | | + +--------+ + + + | MORE COMMON | Routin | 07/28/2019 | MDS | Results for this | | INDIVIDUAL FISH | e | 8:27 AM | (myelodysplastic | procedure are in the | | PROBES | | PST | syndrome) ([facility]) S/P | results section. | | | | | cord blood | | | | | | transplantation | | + +--------+ + + + | CYTOGENETICS BONE | Routin | 07/28/2019 | MDS | Results for this | | MARROW CHROMOSOME | e | 8:27 AM | (myelodysplastic | procedure are in the | | ANALYSIS (W/FISH) | | PST | syndrome) ([facility]) S/P | results section. | | | | | cord blood | | | | | | transplantation | | + +--------+ + + + documented in this encounter Results LEUKEMIA/LYMPHOMA MARKERS - BONE MARROW (07/28/2019 10:17 AM PST) + + + + + [...] biopsy and peripheral | | OF | [place] | | | blood: - Hypocellular | | PATHOLOGY | MD Marta | | | marrow (20-30%) with | | | on 08/18/2019 | | | trilineage | | | at 11:52 AM | | | hematopoiesis. 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 | | | | | | (04/22/2019).CBC:Resulte | | | | | | d: 07/28/19 | | | | | | 08:47Component Ref Range | | | | | | & Units Result WHITE | | | | | | CELL COUNT 3.50 - 10.80 | | | | | | K/cu mm 5.79 RED CELL | | | | | | COUNT 4.00 - 5.20 M/cu | | | | | | mm 3.52Low HEMOGLOBIN | | | | | | 12.0 - 16.0 g/dL 10.8Low | | | | | | HEMATOCRIT 36.0 - | | | | | | 46.0 % 34.4Low MCV | | | | | | 80.0 - 100.0 fL 97.7 | | | | | | MCHC 32.0 - 36.0 g/dL | | | | | | 31.4Low RDW SD 35.1 - | | | | | | 46.3 fL 73.5High | | | | | | PLATELET COUNT 150 - 400 | | | | | | K/cu mm 114Low MPV | | | | | | Comment: Not measured. | | | | | | NRBC% 0.0 - 0.3 % 0.0 | | | | | | NRBC# 0.00 - 0.02 K/cu | | | | | | mm 0.00 NEUTROPHIL % | | | | | | 50.0 - 70.0 % 58.7 | | | | | | LYMPHOCYTE % 18.0 - 42.0 | | | | | | % 24.4 MONOCYTE % 3.5 | | | | | | - 9.0 % 10.7High EOS % | | | | | | 1.0 - 3.0 % 4.1High | | | | | | BASO % 0.0 - 2.0 % 0.2 | | | | | | IG% 0.0 - 1.0 % 1.9High | | | | | | NEUTROPHIL # 1.80 - | | | | | | 7.70 K/cu mm 3.40 | | | | | | LYMPHOCYTE # 1.00 - 4.80 | | | | | | K/cu mm 1.41 MONOCYTE | | | | | | # 0.10 - 0.90 K/cu mm | | | | | | 0.62 EOS # 0.00 - 0.50 | | | | | | K/cu mm 0.24 BASO # | | | | | | 0.00 - 0.10 K/cu mm 0.01 | | | | | | IG# 0.00 - 0.10 K/cu | | | | | | mm 0.11High PERIPHERAL | | | | | | BLOOD MORPHOLOGY:WBC: | | | | | | Neutrophils are mildly | | | | | | left shifted and show | | | | | | normal nuclear lobation | | | | | | and cytoplasmic | | | | | | granularity. Monocytes | | | | | | appear mature. | | | | | | Lymphocytes show normal | | | | | | morphologic spectrum. No | | | | | | circulating blasts are | | | | | | identified. RBC: | | | | | | Normocytic hypochromic | | | | | | with moderate | | | | | | anisopoikilocytosis. | | | | | | Platelets: Normal | | | | | | granulation and size | | | | | | variation. No clumps | | | | | | seen. BONE MARROW | | | | | | ASPIRATE SMEARS:Quality: | | | | | | Adequate particles; | | | | | | good quality. Blasts: | | | | | | Not increased. Myeloids: | | | | | | Complete maturation. No | | | | | | significant dysplastic | | | | | | features. Erythroids: | | | | | | Mild left shift. Mild | | | | | | megaloblastoid change. | | | | | | Megakaryocytes: Present. | | | | | | Occasional hypolobated | | | | | | forms are seen. | | | | | | Lymphocytes: Not | | | | | | increased. No aggregates | | | | | | identified. Plasma | | | | | | cells: Not increased. | | | | | | BONE MARROW | | | | | | DIFFERENTIAL: | | | | | | Preparation: Aspirate | | | | | | smears. Myeloids: 56% | | | | | | Erythroids: 35% Blasts: | | | | | | 1% Lymphocytes: 8% | | | | | | Plasma cells: 0% M:E | | | | | | Ratio: 1.6:1 Total cells | | | | | | counted: 400 BONE | | | | | | MARROW BIOPSY/CLOT | | | | | | SECTION:Quality: | | | | | | Adequate. Clot section | | | | | | contains particles. | | | | | | Cellularity: Variable, | | | | | | 20%-30% overall | | | | | | Myeloids: Unremarkable. | | | | | | Erythroids: | | | | | | Unremarkable. | | | | | | Megakaryocytes: | | | | | | Scattered hypolobated | | | | | | smaller forms and | | | | | | occasioanl loose | | | | | | clusters seen. Other: No | | | | | | increased numbers of | | | | | | immature cells, | | | | | | increased numbers of | | | | | | lymphocytes or plasma | | | | | | cells, or lymphocyte | | | | | | aggregates are | | | | | | identified. FLOW | | | | | | CYTOMETRIC ANALYSIS: | | | | | | % of total WBC | | | | | | (CD45+)Myeloid Blasts <1 | | | | | | Monocytes 11 | | | | | | Lymphocytes 9 | | | | | | % of LymphocytesB-cells | | | | | | 55 T-cells 26 NK-cells | | | | | | 9 RatioKappa/Lambda | | | | | | 1.3:1 CD4/CD8 8.5:1 | | | | | | Summary: There is no | | | | | | increase in blasts. | | | | | | Myeloids show normal | | | | | | maturaiton pattern. | | | | | | Monocytes show no | | | | | | antigenic aberrancy. | | | | | | B-cells are polyclonal. | | | | | | T-cells show increased | | | | | | CD4:CD8 ratio and no | | | | | | antigenic | | | | | | aberrancy.Antibodies | | | | | | TestedCD4 CD5 CD8 CD10 | | | | | | CD13 CD14 CD16 CD19 CD33 | | | | | | CD34 CD45 CD56 CD64 | | | | | | CD117 sKappa sLambda | | | | | | HLA-DR | | | | | | IMMUNOHISTOCHEMICAL | | | | | | STAINS: IHC stains were | | | | | | performed on the core | | | | | | biopsy for CD34 and | | | | | | CD117. Appropriate | | | | | | controls were verified. | | | | | | CD34 and CD117 stain | | | | | | singly scattered blasts | | | | | | that account for less | | | | | | than 5% of total | | | | | | cellularity; CD117 also | | | | | | stains singly scattered, | | | | | | non-spindled mast | | | | | | cells. CYTOGENETIC AND | | | | | | FISH STUDIES: Normal | | | | | | female karyotype, see | | | | | | separate report | | | | | | ([id number]). | | | | | | MOLECULAR STUDIES: | | | | | | Performed, see separate | | | | | | report | | | | | | ([id number]).NGS | | | | | | GeneTrails summary: The | | | | | | previously identified | | | | | | host-derived likely | | | | | | germline variants remain | | | | | | undetectable, while the | | | | | | donor-derived germline | | | | | | variants remain | | | | | | detectable at ~50% | | | | | | allele fraction. No new | | | | | | clinically significance | | | | | | variants are identified. | | | | + + + + + + | Gross | Received in two | | [facility] | | | Description | formalin-filled | | DEPARTMENT | | | | containers labeled with | | OF | | | | the patient's name | | PATHOLOGY | | | | (initials [facility]) and | | | | | | medical record number | | | | | | [id number]. 2 mL EDTA, 2 | | | | | | mL NaHepB: Bone Marrow | | | | | | Clot - 1.0 x 1.0 x 0.1 | | | | | | cmC. Bone Marrow Biopsy | | | | | | - 1.8 L x 0.2 D cmBoth | | | | | | the clot and core biopsy | | | | | | were fixed in formalin. | | | | | | The core biopsy was | | | | | | decalcified. | | | | | | Rothman-stained | | | | | | peripheral blood smear | | | | | | and bone marrow aspirate | | | | | | smears were prepared. | | | | | | SLG | | | | + + + [...] | + + + + + | [facility] DEPARTMENT OF | [address] | [place] [address] | | | PATHOLOGY | [address] | | | + + + + + | [facility] LABORATORY | [address] | [place] [address] | | | [facility] | | | | | [facility] + [facility]AL[facility] | | | | + + + + + MORE COMMON INDIVIDUAL FISH PROBES (07/28/2019 8:27 AM PST) + +-------+ + + + | Component | Value | Ref Range | Performed | Pathologist | | | | | At | Signature | + +-------+ + + + | CELLS | 200 | | [facility] | | | SCORED | | | [...] + + + | [facility] | [address] | [place] [address] | | | DIAGNOSTIC | [address] | | | | LABORATORIES | | | | + + + + + FLT3 ITD, BONE MARROW (07/28/2019 8:27 AM PST) + + + + + + | Component | Value | Ref Range | Performed | Pathologist | | | | | At | Signature | + + + + + + | FLT3 ITD | Undetected. | | [facility] | | | | | | DIAGNOSTIC [...] | For the ITD assay | | [facility] | | | | performed in our [...] REFERENCES | 1. Amos Clifford | | [facility] | | | | T, Hunter Tolebrt. Molecular | | DIAGNOSTIC | | | [...] | | | | | | Chari ALEXANDER, Aniya , | | | | | [...] Blood | | | | | | 2007;111:7119-1218. | | | | + + + + + + | DISCLAIMER | This test was developed | | [facility] | | | | and its performance | | DIAGNOSTIC | | | | characteristics | | | | | | determined by the [facility] | | LABORATORIE | | | | [...] | | (CLIA). [facility] | | | | | | Diagnostics | | | | | | Laboratories are fully | | | | | | licensed by the state of | | | | | | [place] under CLIA and | | | | | | are accredited by the | | | | | | [employer] | | | | | | Pathologists (CAP). | | | | | | Drywall Sander: | | | | | | Tayo [...] + + + + | [facility] | [address] | [place] [address] | | | DIAGNOSTIC | [address] | | | | LABORATORIES | | | | + + + + + COMPREHENSIVE HEME PANEL SEQ, BONE MARROW (07/28/2019 8:27 AM PST) + + + + + + | Component | Value | Ref Range | Performed | Pathologist | | | | | At | Signature | + + + + + + | COMPREHENSI | See Interpretation. | | [facility] | | | VE HEME | | | DIAGNOSTIC | | | PANEL SEQ | | | | | | | | | LABORATORIE | | | | | | S | | + + + + + + | INTERPRETAT | GeneTrails | | [facility] | | | ION | Comprehensive Heme [...] | | | | | | Number: [id number] | | | | | | ID: [id number] | | | | | | Type: Bone Marrow | | | | | | Aspirate Collection | | | | | | Date: 07/28/2019 | | | | | | Indication for Testing: | | | | | | MDS-EB post BMT day0 = | | | | | | 04/22/2019GENOMIC | | | | | | ALTERATIONSIn this | | | | | | post-transplantation | | | | | | marrow sample, the | | | | | | previously identified | | | | | | host-derived likely | | | | | | germline variants remain | | | | | | undetectable, while the | | | | | | donor-derived germline | | | | | | variants remain | | | | | | detectable at ~50% | | | | | | allele fraction.No new | | | | | | clinically significance | | | | | | variants are | | | | | | identified.GeneAlteratio | | | | | | n Classification VAF* | | | | | | Bone Marrow | | | | | | Aspirate07/28/2019 Bone | | | | | | Marrow | | | | | | Vjrzfstl26/27/2019 Bone | | | | | | Marrow Aspirate03/10/2019 | | | | | | Bone Marrow | | | | | | Aspirate01/17/2019 | | | | | | Blood12/02/2018 | | | | | | KDM6Ap.R165Q Tier | | | | | | IIIHost germline | | | | | | Undetected Undetected | | | | | | 51% 47% 50% FAT1p.S6298B | | | | | | Tier IIIHost germline | | | | | | Undetected Undetected | | | | | | 48% 51% 46% FAT4p.H8424J | | | | | | Tier IIIHost germline | | | | | | Undetected Undetected | | | | | | 52% 49% 53% | | | | | | NAXPT4i.P756L Tier | | | | | | IIIHost germline | | | | | | Undetected Undetected | | | | | | 50% 48% 50% MAML1p.G124S | | | | | | Tier IIIDonor germline | | | | | | 53% 53% Undetected | | | | | | Undetected Undetected | | | | | | ID3p.V67M Tier IIIDonor | | | | | | germline 51% 50% | | | | | | Undetected Undetected | | | | | | Undetected ID3p.D113N | | | | | | Tier IIIDonor germline | | | | | | 51% 50% Undetected | | | | | | Undetected Undetected | | | | | | *VAF: variant allele | | | | | | frequency | | | | | | AR: allele ratio- Locus | | | | | | not evaluated Case | | | | | | reviewed by:Sb | | | | | | Raess M.D., | | | | | | Ph.D./HematopathologistA | | | | | | dditional Details on | | | | | | Alterations Reported in | | | | | | This Patient:Gene | | | | | | Transcript cDNA Tia | | | | | | Genome Chrom Start End | | | | | | Ref Tia FAT1 AQEB93746.1 | | | | | | c.3929C>T hg19 chr4 | | | | | | [id number] G A | | | | | | FAT4 FESS1232.3 | | | | | | c.32648W>A hg19 chr4 | | | | | | [id number] [id number] G A | | | | | | SETBP1 MMKJ97909.2 | | | | | | c.2267C>T hg19 chr18 | | | | | | [id number] C T | | | | | | KDM6A CQUZ04036.1 | | | | | | c.494G>A hg19 chrX | | | | | | [id number] [id number] G A | | | | | | ID3 MKOJ731.1 c.337G>A | | | | | | hg19 chr1 [id number] | | | | | | [id number] C T ID3 | | | | | | QNAP151.1 c.199G>A hg19 | | | | | | chr1 [id number] C | | | | | | T MAML1 SJLI42076.1 | | | | | | c.370G>A hg19 chr5 | | | | | | 361404502 [id number] G A | | | | | [...] | | | | | GSKIP HAX1 DCRE9J7O | | | | | | HNRNPK [...] PRKCB | | | | | | JDDL87R PRPF8 PRPS1 | | | | | [...] | | | | | | SYNE1 LZE8UH6 TCF3 TCF4 | | | | | | TERC TERT TET2 TNFAIP3 | | | | | | FSDGQB44 TP53 TRAF3 | | | | | [...] of | | | | | | 3181. However, a small | | | | [...] | | | | | | (99%), SMARCA2 (99%), | | | | | | NOTCH2 (99%), JAK1 | | | | | | (99%), ARID1B (99%), | | | | | | SETBP1 (98%), CD79A | | | | | | (98%), MAML1 (98%), | | | | | | RAD21 (97%), DTX1 (97%), | | | | | | STAT5B (94%), BRD4 | | | | | | (93%), KLF2 (92%), PMS2 | | | | | | (89%) [...] an | | | | | | [employer] platform | | | | | | (Dakwak 500 or 550). | | | | [...] ROUSE, et al; 2017, J | | [facility] | | | | Mol Diagn. | | DIAGNOSTIC | | | | 19(1):4-23.2. Chidi | | | | | | ANGELINA et al; 2017, J Mol | | LABORATORIE | | | | Diagn. 19(3):341-365.3. | | S | | | | Shlomo Nicholas, et al; 2018, J | | | [...] | | | | | | 2016; 127(33):6047-951. | | | | | | 7. [...] (CKB): | | | | | | [email or web address]. | | | | | | CIViC: | | | | | | https://civicdb.org/home | | | | + + + + + + | DISCLAIMER | This test was developed | | [facility] | | | | and its performance | | DIAGNOSTIC | | | | characteristics | | | | | | determined by the [facility] | | LABORATORIE | | | | [facility] Diagnostic | | S | | | [...] | | | | | (CLIA). The [facility] | | | | | | Diagnostics | | | | | | Laboratories are fully | | | | | | licensed by the state of | | | | | | [place] under CLIA and | | | | | | are accredited by the | | | | | | [employer] | | | | | | Pathologists (CAP). | | | | | | Drywall Sander: | | | | | | Tayo Singletary, | | | | | | Isabela, Ph.D.Reviewed | | | | | | and electronically | | | | | | signed by Sb Benoit | | | | | | MD Amada,PhD08/11/2019 | | | | | | 12:09 PM | | | | + + + + + + + + | Specimen | + + | Bone marrow - Bone | | marrow structure | | (body structure) | + + + + + + + | Performing | Address | City/State/Zipcode | Phone Number | | Organization | | | | + + + + + | [facility] | [address] | [place] [address] | | | DIAGNOSTIC | [address] | | | | LABORATORIES | | | | + + + + + ENGRAFTMENT POST-TRANSPLANT, BONE MARROW (07/28/2019 8:27 AM PST) + + + + + + | Component | Value | Ref Range | Performed | Pathologist | | | | | At | Signature | + + + + + + | ENGRAFTMENT | No Host Detected | | [facility] | | | POST | | | DIAGNOSTIC | | | TRANSPLANT | | | | | | | | | LABORATORIE | | | | | | S | | + + + + + + | INTERPRETAT | Donor #1 Name/ID: NMDP | | [facility] | | | ION | [id number] #1 | | DIAGNOSTIC | | | | Gender: MaleDonor #2 | | | | | | Name/ID: NMDP | | LABORATORIE | | | | [id number] #2 | | S | | | | Gender: FemaleDate of | | | | | | Transplant: 04/22/2019No | | | | | | Host Cells Detected, | | | | | | 100% Donor #2 (NMDP | | | | | | [id number]); No | | | | | | Detectable Donor #1 | | | | | | ([facility] [id number])PCR | | | | | | based [...] | | | | | Detectable Donor #1.) | | | | | | This [...] METHOD(S) | [facility] | | [facility] | | | | received specimens from [...] | | | | | | loci [id number], [id number], | | | | | | Q4B015, CSF1PO, [id number], | | | | | | THO1, V16X281, [id number], | | | | | | [id number], Q32A849, vWA, | | | | | | TPOX, D18S51, H9J560, | | | | | | FGA [...] | This test was developed | | [facility] | | | | and its performance | | DIAGNOSTIC | | | | characteristics | | | | | | determined by the [facility] | | LABORATORIE | | | | [facility] | | S | | | [...] | | | | | (CLIA). The [facility] | | | | | | Diagnostics | | | | | | Laboratories are fully | | | | | | licensed by the state of | | | | | | [place] under CLIA and | | | | | | are accredited by the | | | | | | [employer] | | | | | | [employer] ([employer]). | | | | | | Drywall Sander: | | | | | | Tayo Singletary, | | | | | | [place], Ph.D.Reviewed | | | | | | and electronically | | | | | | signed by Beverly | | | | | | MD Marta08/11/2019 | | | | | | 7:30 PM | | | | + + [...] + + + | [facility] | [address] | [place] [address] | | | DIAGNOSTIC | [address] | | | | LABORATORIES | | | | + + + + + CYTOGENETICS BONE MARROW CHROMOSOME ANALYSIS (W/FISH) (07/28/2019 8:27 AM PST) + + + + + [...] + + + + | Impressions | KARYOTYPE: 46,XX[20]All | | [facility] | | | and | twenty metaphase cells | | DIAGNOSTIC | | | Recommendat | analyzed appeared normal | | | | | ions | female. Fluorescent in | | LABORATORIE | | | | situ hybridization | | S | | | | (FISH) was performed | | | | | | with X and Y-specific | | | | | | probes. All 200 (100%) | | | | | | interphase cells scored | | | | | | had two X signals.NOTE: | | | | | | Transplanted with male | | | | | | and female donorsThank | | | | | | you very much for your | | | | | | referral. If you have | | | | | | any questions regarding | | | | | | this report or future | | | | | | cytogenetic testing | | | | | | issues, please feel free | | | | | | to contact us.Reason | | | | | | for Referral: MDSThe | | | | | | clinical interpretation | | | | | | was made by the clinical | | | | | | executive vice president of sales. | | | | + + + [...] + + + + | Banding | <=400 | | [facility] | | | Level: | | | DIAGNOSTIC | | | | | | | | | | | | LABORATORIE | | | | | | S | | + + + + + + | Banding | GTW | | [facility] | | | Method: | | | DIAGNOSTIC | | | | | | | | | | | | LABORATORIE | | | | | | S | | + + + + + + | DISCLAIMER | This test was developed | | [facility] | | | | and its performance | | DIAGNOSTIC | | | | characteristics | | | | | | determined by the [facility] | | LABORATORIE | | | | [facility] | | S | | | [...] | | (CLIA). [facility] | | | | | | Diagnostics | | | | | | Laboratories are fully | | | | | | licensed by the state of | | | | | | [place] under CLIA and | | | | | | are accredited by the | | | | | | [employer] | | | | | | Pathologists (CAP). | | | | | | Drywall Sander: | | | | | | Tayo Singletary, | | | | | | M.D., | | | | | | Ph.D.Electronically | | | | | | reviewed and signed | | | | | | by:Cong Garcia, PhD, | | | | | | FACMGClinical | | | | | | Cytogeneticist08/03/2019 | | | | | | at 5:12 PMReviewed and | | | | | | electronically signed by | | | | | | CONG CINTRON, | | | | | | ,FACMG08/03/2019 5:42 PM | | | | + + + + + + | Cytogenetic | Normal | | [facility] | | | s Bone | | [...] + + + | [facility] | [address] | [place] [address] | | | DIAGNOSTIC | [address] [...] | + +--------+ +------+------+------+ | LORazepam (ATIVAN) injection 1 | Given | 07/28/19 | 1 mg | | | | mg 1 mg, intravenous, ONCE, 1 | | 20 10:06 | | | | | dose, Cheryl 07/28/19 at 1030 | | AM PST | | | | + +--------+ +------+------+------+ +---+---+ | | | +---+---+ + +---------+ +-----+---+---+ | magnesium sulfate in water IV | New Bag | 07/28/19 | 4 g | | | | (RTU) 4 g 4 g, intravenous, | | 20 9:55 | | | | | ONCE, 1 dose, Cheryl 07/28/19 at 1000 | | AM PST | | | | + +---------+ +-----+---+---+ +---+---+ | | | +---+---+ documented in this encounter"
--- OUTSIDE RECORDS SUMMARY | ~2020-03-12 | XMS | Encounter Summary ---
Demographics + + + | Address | [address] | | | [place] [address] | + + + | Home Phone [...] Providers + +------+ + | Care Lead Assembler Name | Role | Phone | + +------+ + | Meredith Sanchez | PCP | | + +------+ + Encounter Details +--------+--------+ + + + | Date | Type | Department | Care Team | Description | +--------+--------+ + + + | 06/13/ | Travel | | | | | [...]
--- OUTSIDE RECORDS SUMMARY | ~2020-03-12 | XMS | Encounter Summary ---
Demographics + + + | Address | [address] | | | [place] [address] | + + + | Home Phone [...] Team Providers + +------+ + | Care Heel Breaster Name | Role | Phone | + +------+ + | Meredith Sanchez | PCP | | + +------+ + Reason for Visit + +--------+ + | Reason | Onset | Comments | | | Date | | + +--------+ + | Social Work Notes | 03/21/ | | | | 2018 | | + +--------+ + Encounter Details +--------+ + + + + | Date | Type | Department | Care Team | Description | +--------+ + + + + | 03/21/ | Telephone | [facility] | Work, Social | Social Work Notes | | 2019 | | Clinics at S | | | | | | [facility] [address] | | | | | | [facility] | | | | | | Health and Healing, | | | | | | [address] | | | | | | [place], [place] | | | | | | [address] | | | | | | [phone] | | | +--------+ + + + [...] Notes Telephone Encounter - Elham Delcid - 03/21/2019 11:55 AM PDTSocial Work Specialist Brief I ntervention Identified needs: Lodging Interventions: Received a message from Sean BUTLER to cancel this weeks lodging. I [facility] cancell ed [facility] and off the waitlist for ronnie. Elham ANDERSON Fire Sprinkler InspectorStaff Air Defense Officer [address] Mailcode: [id number] [id number] documented in this encounte r Plan of Treatment Not on filedocumented as of this encounter Visit Diagnoses Not on filedocumented in this encounter"
--- OUTSIDE RECORDS SUMMARY | ~2020-03-12 | XMS | Encounter Summary ---
Demographics + + + | Address | [address] | | | [place] [address] | + + + | Home Phone [...] Team Providers + +------+ + | Care Accident Report Clerk Name | Role | Phone | + +------+ + | Meredith Sanchez | PCP | | + +------+ + Reason for Visit + +--------+ + | Reason | Onset | Comments | | | Date | | + +--------+ + | Procedure | 10/26/ | | | | 2019 | | [...] | | Oncology / | | Sam, RADIO TIME BUYER | Sam, RADIO TIME BUYER | | | | Hematology | Myelodysplas | [address] | [address] | | | | Malignancy | tic | [place] [address] [place] | | | | | syndrome, | Rd | Rd [place], | | | | | unspecified | [place], [place] | [place] | | | | | Procedures | [address] | [address] | | | | | [place] BONE | Phone: | Phone: | | | | | MARROW; | [phone] | [phone] | | | | | ASPIRATION | Fax: | Fax: | | | | | ONLY [place] | [phone] | [phone] | | | | | BONE MARROW | | | | | | | BX, | | | | | | | NEEDLE/TROCA | | | | | | | R NH DX | | | | | | | BONE MARROW | | | | | | | BX & ASPIR | | | + +--------+ + + + + Encounter Details +--------+---------+ + + + | Date | Type | Department | Care Team | Description | +--------+---------+ + + + | 11/02/ | Office | [facility] | | 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) | | | | [facility] [address] | | (Primary Dx); S/P | | | | [facility] for | | cord blood | | | | Health and Healing, | | transplantation | | | | [address] | | | | | | [place], [place] | | | | | | [address] | | | | | | [phone] | | | +--------+---------+ + + + [...] + + + | Blood Pressure | 168/85 | 11/03/2019 8:10 AM | | | | | PDT | | + + + + + | Pulse | 76 | 11/03/2019 8:10 AM | | | | | PDT | | + + + + + | Temperature | 36.8 C (98.2 F) | 11/03/2019 8:10 AM | | | | | PDT | | + + + + + | Respiratory Rate | 14 | 11/03/2019 8:10 AM | | | | | PDT | | + + + + + | Oxygen Saturation | 96% | 11/03/2019 8:10 AM | | | | | PDT | | + + + + + | Inhaled Oxygen | - | - | | | Concentration | | | | + + + + + | Weight | 60 kg (132 lb 4.8 | 11/03/2019 8:10 AM | | | | oz) | PDT | | + + + + + | Height | - | - | | + + + + + | Body Mass Index | 24.41 | 07/08/2019 4:32 PM | | | [...] Instructions Patient Instructions Sam Baron FNP - 11/03/2019 8:00 AM PDT Post bone marrow biopsy instructions. 1. Keep your dressing dry for the next 24 hours; no shower or bath until tomorrow. 2. If you notice any signs of infection at the biopsy site (redness, tenderness, drainage) , please call the Triage nurse at ([phone]) or BMT person on-call ([phone]) after hours. 3. You received Ativan (lorazepam), which is a sedating medication, so you may not drive fo r at least 8 hours. documented in this encounter Progress Notes Sam Baron FNP - 11/03/2019 8:00 AM PDT11/03/2019 Procedure Note Primary attending in [facility] clinic: Dr. Sejal De La Torre PCP: LACY Perez Procedure: Bone marrow aspirate and biopsy w/medications for anxiolysis Indications: Nona Hopper is a 53 y.o. female with 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 (4270-7545-0,Male) (8132-7204-1/Female) day 0=04/22/19 to eval Disease status & Chimerismns. F/up not yet scheduled. Bone marrow biopsy and aspiration procedure was performed using the following instruments: Description #1: SportsManias Workcell Operator Serial ID #1: [id number] The MA for this procedure today was AMITA Buckley. Mildred Wilson was the bone marrow tech for this procedure today. Description: Verbal consent for procedure was obtained from the patient following a brief discussion of the risks and benefits & review of written consent form, and benefits and risk s have not changed since time of consent being completed, dated 07/28/2019 verified in media tab valid for one year. She was then premedicated for anxiolysis with Ativan 1mg IV. She w as placed in a prone position, with 1 pillow under her pelvis. The skin over her lefft poste rior iliac crest was cleansed with betadine and draped in a sterile manner. Xylocaine 1% was used for local anesthesia, approximately 10mL of Xylocaine was injected. A scalpel was use d to enlarge the insertion site. An SportsManias 4 inch aspirate needle was inserted with the SportsManias inventory associate and driver, and I felt the classic drop into the marrow space. The first aspirate was noted to have spicules and was submitted for morphology studies. A second aspirate was ob tained in a non-heparinized syringe and submitted for FISH X:Y, flow cytometry and cytogenet ics. A third aspirate was obtained in a non-heparinized syringe and submitted for GeneTrail s. A fourth aspirate was obtained in a non-heparinized syringe and submitted for VNTR. A to jay of 10 mL of bone marrow was aspirated. The OnControl 4 inch needle was advanced 2cm usi ng the OnCAhandyhand inventory associate and driver. A core biopsy measuring approximately 2 cm was obtained and submit martha for morphology studies. Hemostasis was achieved and a pressure dressing was applied. The patient was observed for 2 0 minutes post-procedure for signs of bleeding. Pt tolerated the procedure well without comp lications. The results of this procedure will take approximately 7 to 10 days for full analysis. Olga coates, preliminary results should be available within the next 3 to 4 business days. [facility] [address] [place] [address] Mailcode: [id number] [address] documented in this encounter Plan of Treatment Not on filedocumented as of this encounter Procedures + +--------+ + + + | Procedure Name | Priori | Date/Time | Associated Diagnosis | Comments | | | ty | | | | + +--------+ + + + | NH DX BONE MARROW BX | Routin | 11/03/2019 | MDS | | | & ASPIR | e | 8:49 AM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| PDT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) S/P | | | | | | cord blood | | | | | | transplantation | | + +--------+ + + + | ENGRAFTMENT | Routin | 11/03/2019 | MDS | Results for this | | POST-TRANSPLANT, | e | 8:05 AM | (myelodysplastic | procedure are in the | | BONE MARROW | | PDT | syndrome) ([facility]) S/P | results section. | | | | | cord blood | | | | | | transplantation | | + +--------+ + + + documented in this encounter Results ENGRAFTMENT POST-TRANSPLANT, BONE MARROW (11/03/2019 8:05 AM PDT) + + + + + + | Component | Value | Ref Range | Performed | Pathologist | | | | | At | Signature | + + + + + + | ENGRAFTMENT | No Host Detected | | [facility] | | | POST | | | DIAGNOSTIC | | | TRANSPLANT | | | | | | | | | LABORATORIE | | | | | | S | | + + + + + + | INTERPRETAT | Donor #1 Name/ID: NMDP | | [facility] | | | ION | [id number] #1 | | DIAGNOSTIC | | | | Gender: Male Donor #2 | | | | | | Name/ID: NMDP | | LABORATORIE | | | | [id number] #2 | | S | | | | Gender: Female Date of | | | | | | Transplant: 04/22/2019 | | | | | | No Host Cells Detected, | | | | | | 100% Donor #2 (NMDP | | | | | | [id number]); No | | | | | | Detectable Donor #1 | | | | | | (NMDP [id number]) PCR | | | | | | based [...] METHOD(S) | [facility] | | [facility] | | | | received specimens from [...] | | | | | | loci [id number], [id number], | | | | | | [id number], CSF1PO, [id number], | | | | | | THO1, Z13F693, H44R100, | | | | | | [id number], [id number], vWA, | | | | | | TPOX, D18S51, H8T250, | | | | | | FGA [...] | This test was developed | | [facility] | | | | and its performance | | DIAGNOSTIC | | | | characteristics | | | | | | determined by the [facility] | | LABORATORIE | | | | [facility] | | S | [...] | | | | | (CLIA). The [facility] | | | | | | Diagnostics | | | | | | Laboratories are fully | | | | | | licensed by the state of | | | | | | [place] under CLIA and | | | | | | are accredited by the | | | | | | [employer] [place] | | | | | | Pathologists (CAP). | | | | | | Manager Client Service: | | | | | | Tayo Singletary, | | | | | | Isabela, Ph.D.Reviewed | | | | | | and electronically | | | | | | signed by Beverly | | | | | | Marta, MD11/14/2019 | | | | | | 9:02 AM | | | | + + [...] + + + | [facility] | [address] | [place] [address] | | | DIAGNOSTIC | [address] [...]
--- OUTSIDE RECORDS SUMMARY | ~2020-03-12 | XMS | Encounter Summary ---
Demographics + + + | Address | [address] | | | [place] [address] | + + + | Home Phone [...] Team Providers + +------+ + | Care Administrative Support Specialist Name | Role | Phone | + +------+ + | Meredith Sanchez | PCP | | + +------+ + Reason for Visit Chemotherapy (Routine) +--------+---------+ + + + + | Status | Reason | Specialty | Diagnoses / | Referred By | Referred To | | | | | Procedures | Contact | Contact | +--------+---------+ + + + + | Closed | Other | Hematology | Diagnoses | Wil, | Chm | | | | 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 | Sejal Meadows, | Infusion | | | | | (myelodyspla | DO [address] | [address] | | | | | stic | [address] | [address] | | | | | syndrome) | Melly Lujan | [address] | | | | | (HCC) | [facility] [place] | Rd Mailcode: | | | | | Procedures | [address] | [id number] | | | | | [place] | Phone: | Bib[address] | | | | | AZACITIDINE | [phone] | Pavilion | | | | | INJECTION, 1 | Fax: | [place], [place] | | | | | [place] | [phone] | [address] | | | | | CHM,IV | | Phone: | | | | | INFSN,1 HR | | [phone] | | | | | [place] CHM,IV | | Fax: | | | | | INFSN,ADDL | | [phone] | | | | | HR | | | | | | | azaCITIDine | | | | | | | (VIDAZA) | | | | | | | injection | | | | | | | 125 mg | | | | | | | Every 28 | | | | | | | days | | | +--------+---------+ + + + + Encounter Details +--------+ + + + + | Date | Type | Department | Care Team | Description | +--------+ + + + + | 12/02/ | Hospital | [facility] | | Canceled (Provider | | 2019 | Encounter | Clinics at S | | Request) | | | | [facility] [address] | | | | | | [facility] | | | | | | Health and Healing, | | | | | | [address] | | | | | | [place], [place] | | | | | | [address] | | | | | | [phone] | | | +--------+ + + + [...]
--- OUTSIDE RECORDS SUMMARY | ~2020-03-12 | XMS | Encounter Summary ---
Demographics + + + | Address | [address] | | | [place] [address] | + + + | Home Phone [...] Providers + +------+ + | Care Pharmacy Grad Intern Name | Role | Phone | + +------+ + | Meredith Sanchez | PCP | | + +------+ + Encounter Details +--------+ + + + + | Date | Type | Department | Care Team | Description | +--------+ + + + + | 07/21/ | Pharmacy | Specialty Pharmacy | | | | 2019 | Visit | Services [address] | | | | | | [address] | | | | | | [place], [place] | | | | | | [address] | | | | | | [phone] | | | +--------+ + + + [...]
--- OUTSIDE RECORDS SUMMARY | ~2020-03-12 | XMS | Encounter Summary ---
Demographics + + + | Address | [address] | | | [place] [address] | + + + | Home Phone | | + + + | Preferred Language | Unknown | + + + | Marital Status | Single | + + + | Confucianism Affiliation | NRP | + + + [...] Team Providers + +------+ + | Care Wrapper Cashier Name | Role | Phone | + +------+ + | Meredith Sanchez | PCP | | + +------+ + Encounter Details +--------+ + + + + | Date | Type | Department | Care Team | Description | +--------+ + + + + | 05/31/ | Pharmacy | Pharmacy @ [facility] | | | | 2019 | Visit | [address] | | | | | | [address] Mailcode: | | | | | | [facility] | | | | | | and Healing, | | | | | | [address] | | | | | | [place], [place] | | | | | | [address] | | | +--------+ + + + [...]
--- OUTSIDE RECORDS SUMMARY | ~2020-03-12 | XMS | Encounter Summary ---
Demographics + + + | Address | [address] | | | [place] [address] | + + + | Home Phone [...] Team Providers + +------+ + | Care Rv Service Technician Name | Role | Phone | + +------+ + | Meredith Sanchez | PCP | | + +------+ + Encounter Details +--------+--------+ + + + | Date | Type | Department | Care Team | Description | +--------+--------+ + + + | 07/25/ | Travel | | | | | [...]
--- OUTSIDE RECORDS SUMMARY | ~2020-03-12 | XMS | Encounter Summary ---
Demographics + + + | Address | [address] | | | [place] [address] | + + + | Home Phone [...] Providers + +------+ + | Care Supervisor Tank Cleaning Name | Role | Phone | + +------+ + | Meredith Sanchez | PCP | | + +------+ + Reason for Visit + +--------+ + | Reason | Onset | Comments | | | Date | | + +--------+ + | Transplant | 03/21/ | HLA Antibody Screening Report | | | 2018 | | + +--------+ + Encounter Details +--------+ + + + + | Date | Type | Department | Care Team | Description | +--------+ + + + + | 03/21/ | Documentati | Kidney Transplant | Herve Parr, | Transplant (HLA | | 2019 | on | at [facility] [address] | MD [address] | Antibody Screening | | | | [address] | [address] | Report) | | | | Physician's | [place], [place] | | | | | [place], 3rd floor | [address] | | | | | [place], [place] | [phone] | | | | | [address] | | | | | | [phone] | | | +--------+ + + + [...]
--- OUTSIDE RECORDS SUMMARY | ~2020-03-12 | XMS | Encounter Summary ---
Demographics + + + | Address | [address] | | | [place] [address] | + + + | Home Phone [...] Author + + + | Author | [facility] | + + + | Organization | [facility] | + + + | Address | Unknown | + + + | Phone | Unavailable | + + + Support + + +---------+ + | Name | Relationship | Address | Phone | + + +---------+ + | Claudia Cota | ECON | Unknown | | + + +---------+ + Care Team Providers + +------+ + | Care Opening Machine Cleaner Name | Role | Phone | + +------+ + | Meredith Sanchez | PCP | | + +------+ + Reason for Visit + +--------+ + | Reason | Onset | Comments | | | Date | | + +--------+ + | Refill Request | 11/06/ | potassium chloride | | | 2020 | | + +--------+ + Encounter Details +--------+--------+ + + + | Date | Type | Department | Care Team | Description | +--------+--------+ + + + | 11/06/ | Refill | [facility] | Wil Sejal | Refill Request | | 2020 | | Clinics at S | N, DO [address] | (potassium chloride) | | | | [facility] [address] | [facility] [address] | | | | | [facility] | [place], [place] | | | | | Health and Healing, | [address] | | | | | [address] | [phone] | | | | | [place], [place] | | | | | | [address] | | | | | | [phone] | | | +--------+--------+ + + + [...] Telephone Encounter - Tayo Osborne MA - 11/07/2019 5:28 PM PDTFormatting of this no te might be different from the original. Pharmacy Name: [facility] [place] [facility] Phone #: [phone] Last appointment with Cathy GONZÁLES was on 11/03/19. Pt has no scheduled appts. Per last OV: "We will call you for a phone visit in 2 weeks, olivia ner if needed " Last LIP progress note reviewed. Is there documentation to indicate that medication being r equested has been changed or discontinued? No Allergy list reviewed--Is the medication being requested on the patient's current allergy l ist? No Previous Prescription Details copied below: Date and Time Department Ordering/Authorizing 09/30/2019 5:[address] [facility] Sejal De La Torre, DO Outpatient Medication Detail Disp Refills potassium chloride SR 10 mEq oral tablet,ER particles/crystals 90 tablet 0 Sig: Take 3 tablets by mouth once daily. Indications: low amount of potassium in the blood Sent to pharmacy as: potassium chloride ER 10 mEq tablet,extended release(part/cryst) (KLOR -CON) Class: eRx Route: oral Order: [id number] Per [facility] policy, routing encounter to [facility] for review and approval. documented in this encounter Plan of Treatment Not on filedocumented as of this encounter Visit Diagnoses Not on filedocumented in this encounter
--- OUTSIDE RECORDS SUMMARY | ~2020-03-12 | XMS | Encounter Summary ---
Demographics + + + | Address | [address] | | | [place] [address] | + + + | Home Phone [...] Team Providers + +------+ + | Care Stamping Mill Tender Name | Role | Phone | + +------+ + | Meredith Sanchez | PCP | | + +------+ + Encounter Details +--------+ + + + + | Date | Type | Department | Care Team | Description | +--------+ + + + + | 06/13/ | Pharmacy | Pharmacy @ [facility] | | | | 2019 | Visit | [address] | | | | | | [address] Mailcode: | | | | | | [facility] | | | | | | and Healing, | | | | | | [address] | | | | | | [place], [place] | | | | | | [address] | | | +--------+ + + + [...]
--- OUTSIDE RECORDS SUMMARY | ~2020-03-12 | XMS | Encounter Summary ---
Demographics + + + | Address | [address] | | | [place] [address] | + + + | Home Phone [...] Team Providers + +------+ + | Care Consumer Recruiter Name | Role | Phone | + +------+ + | Meredith Sanchez | PCP | | + +------+ + Encounter Details +--------+ + + + + | Date | Type | Department | Care Team | Description | +--------+ + + + + | 01/19/ | Hospital | UNLRELATED BMT | | | | 2019 | Encounter | PROGRAM [address] | | | | | | [address] | | | | | | [place], [place] | | | | | | [address] | | | +--------+ + + + [...] + + + +---------+ + + | apixaban 5 mg oral | Take 1 tablet by | 14 | 0 | 01/18/20 | | | tablet | mouth two times | tablet | | 19 | 9 | | | daily for 7 days. | | | | | | | After 7 days, the | | | | | | | dose will decrease | | | | | | | to 2.5mg. | | | | | + + + +---------+ + + | valACYclovir 1 g | Take 1 tablet by | 21 | 0 | 01/18/20 | | | oral | mouth three times | tablet | | 19 | 9 | | tabletIndications: | daily for 7 days. | | | | | | varicella zoster | After finishing 7 | | | | | | virus | days, transition to | | | | | | | 500mg twice daily. | | | | | | | Indications: | | | | | | | shingles | | | | | + + + +---------+ + + documented as of this encounter Plan of Treatment Not on filedocumented as of this encounter Visit Diagnoses Not on filedocumented in this encounter"
--- OUTSIDE RECORDS SUMMARY | ~2020-03-12 | XMS | Encounter Summary ---
Demographics + + + | Address | [address] | | | [place] [address] | + + + | Home Phone | | + + + | Preferred Language | Unknown | + + + | Marital Status | Single | + + + | Hinduism Affiliation | NRP | + + + | Race | White | + + + | Ethnic Group | Not or | + + + Author + + + | Author | [facility] | + + + | Organization | [facility] | + + + | Address | Unknown | + + + | Phone | Unavailable | + + + Support + + +---------+ + | Name | Relationship | Address | Phone | + + +---------+ + | Claudia Cota | ECON | Unknown | | + + +---------+ + Care Team Providers + +------+ + | Care Bullet Assembly Press Setter Operator Name | Role | Phone | + +------+ + | Meredith Sanchez | PCP | | + +------+ + Reason for Visit + + + | Reason | Comments | + + + | Transplant follow-up | | + + + Office Visit - E/M Services (Routine) + [...] | | syndrome) | [address] | Melly Lujan | | | | | (HCC) | [place], [place] | [place], [place] | | | | | Procedures | [address] | [address] | | | | | [place] EST | Phone: | Phone: | | | | | PATIENT | [phone] | [phone] | | | | | LEVEL V | Fax: | Fax: | | | | | | [phone] | [phone] | + +--------+ + + + + Encounter Details +--------+---------+ + + + | Date | Type | Department | Care Team | Description | +--------+---------+ + + + | 11/02/ | Office | [facility] | Cathy Cornelius | GVHD (graft versus | | 2020 | Visit | Clinics at S | M, PUBLIC AFFAIRS OFFICER [address] | host disease) (HCC) | | | | [facility] [address] | (Primary Dx) | | | | [facility] | [place], [place] | | | | | [facility] and He[facility], | [address] | | | | | [address] | [phone] | | | | | [place], [place] | | | | | | [address] | | | | | | [phone] | | | +--------+---------+ + + + [...] Instructions Patient Instructions Cathy Cornelius NP - 11/03/2019 9:15 AM PDT1. Call the BMT clini c ([phone]) or BMT person on-call ([phone]) for: Any temp > 100.4 Nausea/vomiting unresponsive to anti-nausea medications Significant diarrhea despite Imodium Inability to drink at least 2 liters of fluid daily You develop a rash Bleeding 2. -We'll call you to adjust your Tacrolimus if necessary. 3. Continue current dose of prednisone at 20mg once daily 4. Continue hydrocortisone twice daily to your face 5. For your eyes: Use the erythromycin ointment to your eyes for four days. Try warm compre sses to the eyes three times daily. 6. We will call you for a phone visit in 2 weeks, sooner if needed documented in this encounter Progress Notes Cathy Cornelius NP - 11/03/2019 9:15 AM PDT 11/03/19- Day +189 post transplant CHM Physician: Sejal De La Torre DO Local oncologist: Dr. Sequeira Hematologic Malignancy: MDS Conditioning regimen: FluCyTBI Date of transplant: 04/22/2019 Donor: CBU 1: [id number]/02 match, CBU 2: [id number]/02 match Research study: Kyle "[id number]: A Multicenter, Randomized, Phase III Registration Tr [...] s howing dropping counts. --Jun. Moved to [place] ([facility]) -- 10/07/18 showed normal chemistries, [...] 01/14-01/26/2019 admitted for zoster to [facility]. Vidaza held. 02/17/2019- seen at [facility] by Dr. De La Torre, no healthy siblings so cord blood is only option -consented to kyle "[id number]: A Multicenter, Randomized, Phase III Registration Tri or of Transplantation of NiCord, Ex Vivo Expanded, UCB-derived, Stem and Progenitor Cells, vs. Unmanipulated UCB for Patients With Hematological Malignancies". She was randomized to SOC arm. --02/21-03/01 C3 aza.Tolerated well without complications. --04/15-05/18/2019 admitted to [facility] for planned flu/cy/tbi conditioned UCB on Gamida [...] a bone marro w biopsy. She is overall doing well since our last phone visit two weeks ago. 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 She also notes mild rash to her upper c hest and back. No other areas of rash. No itching. She continues to have watery eyes and has right eye swelling and redness. She has been using Claritin with some improvement. She cont inues to note allergy symptoms, especially when she is more active outdoors. No infectious s ymptoms, fevers or chills. She had a cold several weeks ago and those symptoms (cough, conge stion) have resolved. She does have occasional urinary frequency that has been ongoing since transplant. Denies blood in the urine. No pain or burning with urination. She does have occ asional urgency with BMs, but no diarrhea. Her appetite is good. Denies nausea or vomiting. No heartburn. Her activity continues to improve and she is increasing her strength with at home exercises . Her right foot drop is also improved. Her recent knee pains have improved with the use of Claritin. Review of Systems Constitutional: Negative for chills, fever, malaise/fatigue and weight loss. HENT: Negative for congestion, hearing loss, sinus pain, sore throat and tinnitus. Eyes: Positive for discharge (watery eyes) and redness (R>L). Respiratory: Negative for cough and shortness of [...] by mouth once daily. Indications: pneumonia prevention ERYTHROMYCIN 5 MG/GRAM (0.5 %) EYE OINTMENT Use one inch ointment to lower lid four times d aily for four days Indications: eye infection ESCITALOPRAM 20 MG TABLET Take 1 [...] in the evening. TACROLIMUS 0.5 MG CAPSULE As of 11/03/19: [...] tablet by mouth two times daily. Vitals: Vitals 11/03/2019 Systolic 168 Diastolic 85 Pulse 76 Temperature 98.2 Respirations 14 Weight 60.011 kg (132 lb 4.8 oz) Height (in) Height (cm) BMI SpO2 96 BSA 1.62 m2 Pain Scale 0 - Zero Pain Location OB Information Physical Exam Constitutional: She is oriented to [...] a normal mood and affect. Laboratory Results: CBC with diff last 72 hours (or 3 results) Recent Labs 11/03/19 0736 WBC 5.01 HB 9.8* HCT 32.1* PLT 110* Chemistries: Last 72 Hours (or 3 results) - Refreshable Recent Labs 11/03/19 0736 NA 140 K 3.7 CL 105 BICARB 27 BUN 15 EGFRAFRICAN >60 CR 0.82 GLU 85 CA 8.2* MG 1.8 PO4 2.8 Assessment/Plan: 1. Hematology: History of MDS s/p FluCyTBI double cord (Day 0=04/22/19) She is enrolled in [employer] "[id number]: A Multicenter, Randomized, Phase III Registration Trial [...] no prior mutations were det ected on [email or web address]. Her engraftment studies show 100% donor #2 (female) D+90. PB chimerism 07/21-100% cord #2 -BMBx completed on 11/03/19 with chimerisms and immune reconstitution panel per [facility], results PENDING 2. 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 She was last decrease d to 20mg once daily on 10/12 and continues on that dose. Today, she has a raised, red rash t o her face and upper chest. No other symptoms of GVHD. -Prednisone: Continue 20mg once daily (10/12- ) continue given current skin flare -Tacrolimus, continue with goal 5-10 -Hydrocortisone BID to facial rash. Kyle Simpson phase 3 (IRB 21537) Acute GVHD Staging Complete on study visit [...] mL diarrhea/day 2 25-50% BSA 3.1-6 mg/dL 3051-8453 mL diarrhea/day 3 >50% BSA Generalized erythroderma [...] Scoring: Day 100, 180, 270, 365 IRB 22594 Score 1(skin) Performance Scoring Not Present 0 [...] -Continue posaconazole while on HD steroids >20mg/day Vaccinations: Influenza vaccine administered 07/28/19 and Prevnar#1 administered on 07/28/19. Conjunctivitis, R>L: Eye redness with increased watering and discharge. -Erythromycin ointment QID x4 days -Warm compresses TID 4. FEN: Labs reviewed and electrolytes WNL. [...] Patient Instructions 1. Call the BMT clinic ([phone]) or BMT person on-call ([phone]) for: Any temp > 100.4 Nausea/vomiting unresponsive to anti-nausea medications Significant diarrhea despite Imodium Inability to drink at least 2 liters of fluid daily You develop a rash Bleeding 2. -We'll call you to adjust your Tacrolimus if necessary. 3. Continue current dose of prednisone at 20mg once daily 4. Continue hydrocortisone twice daily to your face 5. For your eyes: Use the erythromycin ointment to your eyes for four days. Try warm compre sses to the eyes three times daily. 6. We will call you for a phone visit in 2 weeks, sooner if needed Cathy Cornelius NP [facility] [id number] [place] [address] Janee Enriquez RN - 11/03/2019 9:15 AM PDTPre-procedure pain level:0 Team Pause: Prior to the beginning of the procedure, the team paused to verify the patient s identity, the procedure to be performed (in accordance with the consent,) and the [facility] t side/site. The patient was positioned appropriately. All relevant images and results were properly labeled and displayed. We addressed antibiotic prophylaxis and fluids for irrigatio n as applicable to this patient. Any safety precautions were addressed. Patient premedicated with ativan1 mg iv per .Sam Baron SKIN CARE THERAPIST orders. Bone marrow biopsy co mpleted. . PIV dc'd. Patient observed for 15 minutes post-procedure. Bone Marrow biopsy dressing dry and intact. Post bone marrow biopsy instructions reviewed. For details, see [facility] doc flow sheet and Education tab. Post-Procedure pain level: 0 Jaene Liu RN documented in this encou nter Plan of Treatment + +------+--------+ + + | Name | Type | Priori | Associated Diagnoses | Order Schedule | | | | ty | | | + +------+--------+ + + | LYMPHOCYTE | Lab | Routin | GVHD (graft versus | Expected: 11/03/2019 | | ACTIVATION(LYMPH | | e | host disease) (HCC) | (Approximate), | | RECONSTITUTION/ACTIV | | | | Expires: 12/03/2020 | | ATE),BLOOD | | | | | + +------+--------+ + + documented [...] LORazepam (ATIVAN) injection 1 | Given | 11/03/19 | 1 mg | | | | mg 1 mg, intravenous, ONCE, 1 | | 20 8:30 | | | | | dose, Cheryl 11/03/19 at 0815 | | AM PDT | | | | + +--------+ +------+------+------+ +---+---+ | | | +---+---+ documented in this encounter
--- OUTSIDE RECORDS SUMMARY | ~2020-03-12 | XMS | Encounter Summary ---
Demographics + + + | Address | [address] | | | [place] [address] | + + + | Home Phone [...] Providers + +------+ + | Care Food Mixer Name | Role | Phone | + +------+ + | Meredith Sanchez | PCP | | + +------+ + Encounter Details +--------+ + + + + | Date | Type | Department | Care Team | Description | +--------+ + + + + | 08/16/ | Mop Machine Operator | [facility] | Sejal De La Torre | | | 2019 | | Clinics at S | N, DO [address] | | | | | [facility] [address] | | | | | [place] [place] for | [place], [place] | | | | | Health and Healing, | [address] | | | | | [address] | [phone] | | | | | [place], [place] | | | | | | [address] | | | | | | [phone] | | | +--------+ + + + [...] - Sejal De La Torre DO - 08/16/2019 9:35 AM PSTCalled patient after reports of new GVHD like rash over 50% BSA. Noted over the last 1 week. Plan to restart ster oids 1 mg/kg/d. Restart posaconazole. Reduce tacrolimus level to 0.5 mg daily. Use lower pot ency steroid cream to face twice daily. Will check in with Dr. Sequeira locally Thursday. C ontinue PPI. Will plan to wean to 20 mg BID 08/24/19, 15 mg BID on 08/31/19, 20 mg daily on 09/07/19, 15 mg daily on 09/14/19 (x 14 days), then 10 mg daily on 09/28/19 (x14 days). Then 5 mg daily X 14 da ys, then off. Taper to be followed as tolerated. Patient verbalized understanding.Electronic ally signed by Sejal De La Torre DO at 08/16/2019 10:00 AM PSTdocumented in this encounter Plan of Treatment Not on filedocumented as of this encounter Visit Diagnoses Not on filedocumented in this encounter"
--- OUTSIDE RECORDS SUMMARY | ~2020-03-12 | XMS | Encounter Summary ---
Demographics + + + | Address | [address] | | | [place] [address] | + + + | Home Phone [...] Providers + +------+ + | Care Meat Cutter Apprentice Name | Role | Phone | + +------+ + | Meredith Sanchez | PCP | | + +------+ + Reason for Visit + +--------+ + | Reason | Onset | Comments | | | Date | | + +--------+ + | Medication | 06/24/ | Tacro | | Adjustment | 2018 | | + +--------+ + Encounter Details +--------+ + + + + | Date | Type | Department | Care Team | Description | +--------+ + + + + | 06/24/ | Telephone | [facility] | Sejal De La Torre | Medication | | 2019 | | Clin[facility] | N, DO [address] | Adjustment (Tacro) | | | | [facility] [address] | [address] [facility] | | | | | [facility] for | [place], [place] | | | | | Health and Healing, | [address] | | | | | [address] | [phone] | | | | | [place], [place] | | | | | | [address] | | | | | | [phone] | | | +--------+ + + + [...] encounter Miscellaneous Notes Addendum Note - Tayo Osborne MA - 06/24/2019 2:19 PM PST Addended by: COLEEN LEVI, CHR ISTOPHER on: 06/24/2019 02:19 PM Modules accepted: Orders elephone Encoun ter - Tayo Osborne MA - 06/24/2019 2:18 PM PSTFormatting of this note might be diffe rent from the original. Result Follow-up CSA level: Lab Results Component Value Date FK506 11.3 06/24/2019 Nona will be contacted to change dose from 1 mg every morning and 0.5 mg every evening to 0.5 mg every morning and 0.5 mg every evening per Sejal De La Torre MD starting on 06/24/19 ( date). Nona and/or her caregiver have been contacted and were able to provide verbal read back o f these instructions. elephone Avelina Villa RN - 06/24/2019 7:28 AM PSTInitial Assessment Nona Hopper's area field person for today is patient, Nona Hopper, and her conta ct phone number for today 06/24 is: [phone]. Nona has been advised of when to [...] Nona took her last dose at 2130 on 06/23. documented in this en counter Plan of Treatment Not on filedocumented as of this encounter Visit Diagnoses Not on filedocumented in this encounter"
--- OUTSIDE RECORDS SUMMARY | ~2020-03-12 | XMS | Encounter Summary ---
Demographics + + + | Address | [address] | | | [place] [address] | + + + | Home Phone [...] Team Providers + +------+ + | Care Lawn Sprinkler Installer Name | Role | Phone | [...] | | | | | (HCC) | [place], [place] | [place], [place] | | | | | Procedures | [address] | [address] | | | | | [place] | Phone: | Phone: | | | | | OFFICE/OUTPT | [phone] | [phone] | | | | | | Fax: | Fax: | | | | | VISIT,VENKATESH,LE | [phone] | [phone] | | | | | VL IV | | | +--------+--------+ + + + + Encounter Details +--------+---------+ + + + | Date | Type | Department | Care Team | Description | +--------+---------+ + + + | 06/03/ | Office | [facility] | Apple Bergeron, | 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 | Clinics at S | [place] [address]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) | | | | [facility] [address] | (Primary Dx); S/P | | | | [facility] | [place], [place] | cord blood | | | | Health and Healing, | [address] | transplantation | | | | Building [address] | [phone] | | | | | [place], [place] | | | | | | [address] | | | | | | [phone] | | | +--------+---------+ + + + [...] Instructions Patient Instructions Apple Bergeron PA - 06/03/2019 10:40 AM PST-Take your temperature regularly (3-4 x daily) and to call immediately for a temperature of 100.4 or greater. -We'll call you to adjust your Tacrolimus if necessary. -Stop taking triamterene/HCTZ for now. We will follow your blood pressure closely. -Start mag+protein 1 tab twice daily. HOLD for loose stools. -Use the kenolog cream if the rash on your arm worsens or becomes itchy. Call us if the ra sh starts to spread significantly. -Use the tramadol at night for now if this helps you sleep. We are still waiting on the in surance authorization for the Rozerem (ramelteon). If it is not approved we will start an a lternative medication next week. documented in this encounter Progress Notes Apple Bergeron PA - 06/03/2019 10:40 AM PSTFormatting of this note might be different f rom the original. 06/03/2019 [facility] Physician: Sejal De La Torre DO Local oncologist: Dr. Sequeira Hematologic Malignancy: MDS Conditioning regimen: FluCyTBI Date of transplant: 04/22/2019 Donor: CBU 1: [id number]/02 match, CBU 2: [id number]/02 match Research study: Kyle "[id number]: A Multicenter, Randomized, Phase III Registration Tr [...] s howing dropping counts. --Jun. Moved to [place] ([facility]) -- 10/07/18 showed normal chemistries, Bilirubin [...] for D4-D7. 01/14-01/26/2019 admitted for zoster to [facility]. Vidaza held. 02/17/2019- seen at [facility] by Dr. De La Torre, no healthy siblings so cord blood is only option -consented to kyle "[id number]: A Multicenter, Randomized, Phase III Registration Tri ar of Transplantation of NiCord, Ex Vivo Expanded, UCB-derived, Stem and Progenitor Cells, vs. Unmanipulated UCB for Patients With Hematological Malignancies". She was randomized to SOC arm. --02/21-03/01 C3 aza.Tolerated well without complications. --04/15-05/18/2019 admitted to [facility] for planned flu/cy/tbi conditioned UCB on Gamida study (SOC arm). 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 Nona Hopper is a 53 y.o. female with hx of MDS, currently day +42, s/p Flu/cy/TBI co nditioned URD cord on gamida trial -on SOC arm. Interval History: Comes to clinic today for her routine scheduled visit. She is accompanied by her caregiver. She is doing ok today but feels even more exhausted and weak than usual. She reports feeli ng fatigued just walking across the room. Had low grade temps the last two night up to 100 F but no chills. She also reports restless leg type sxs last night which made it more diffi cult for her to sleep but this resolved after she took tramadol. She is having some nausea along with abdominal cramping before she has a BM. Stools are so ft. Her appetite is improving a little and she's been eating 3 small meals/day and drinking ~1.5-2L/day. Taste alterations remain present. Does have small area of rash on her L arms near her elbow. Denies pruritis. Headaches continue intermittently and she thinks they may be associated with the tacrolimus . Review of Systems: General: Denies fevers, chills, weight loss or sweats. +fatigue-worse today ENT: +headaches-stable Denies changes in vision or double vision. Denies hearing loss, nose bleeds, nasal congestion, difficulty swallowing, hoarseness or sore throat. Respiratory: +shortness of breath with exertion Denies coughing up blood, excessive sputum, cough, chest discomfort or wheezing. Cardiovascular: No chest pain, lightheadedness,shortness of breath. Gastrointestinal: Denies indigestion, vomiting, +nausea/abd cramping prior to BMs, constipa tion, diarrhea, bloody stools or dark tarry stools. Musculoskeletal: [...] fo r nausea/vomiting. Max dose: 40 mg/day RAMELTEON 8 MG TABLET Take 1 tablet by mouth once daily at bedtime as needed for sleep. Sarath e 30 minutes before bedtime. SENNOSIDES 8.6 MG-DOCUSATE SODIUM 50 MG TABLET Take 1-2 tablets by mouth every twelve hours as needed for constipation. TACROLIMUS 0.5 MG CAPSULE Effective 05/27/2019: HOLD AM and PM (05/27/19) doses and resume 0.5 mg by mouth morning and 0.5 mg evening. Combine 0.5mg and 1mg capsules to make your cur rent dose. HOLD on days of clinic and bring with you to take AFTER your labs are drawn. Emma cations: prevention of graft versus host TACROLIMUS 1 MG CAPSULE Effective 05/27/2019: HOLD AM and PM (05/27/19) doses and resume 0 .5 mg by mouth morning and 0.5 mg evening. Combine 0.5mg and 1mg capsules to make your curre nt dose. HOLD on days of clinic and bring with you to take AFTER your labs are drawn. Indica tions: prevention of graft versus host disease TRAMADOL 50 MG TABLET Take 1 tablet by mouth every six hours as needed for moderate pain. TRIAMCINOLONE ACETONIDE 0.1 % TOPICAL OINTMENT Apply a thin film to the affected areas twi ce daily as needed . Indications: skin rash TRIAMTERENE 37.5 MG-HYDROCHLOROTHIAZIDE 25 MG CAPSULE Take 1 capsule by mouth once daily. H OLD until further instructed. Indications: high blood pressure URSODIOL 500 MG TABLET Take 1 tablet by mouth two times daily. Take this medication through day +90 (07/21/2019) Indications: prevention of veno-occulsive disease VALACYCLOVIR 500 MG TABLET Take 1 tablet by mouth two times daily. Vitals: BP Readings from Last 1 Encounters: 06/03/19 106/63 Pulse Readings from Last 1 Encounters: 06/03/19 77 Resp Readings from Last 1 Encounters: 06/03/19 16 Wt Readings from Last 1 Encounters: 06/03/19 60.4 kg (133 lb 3.2 oz) Temp Readings from Last 1 Encounters: 06/03/19 36.7 C (98 F) (Oral) There is no height or weight on file to calculate BMI. Physical Exam: General:This is a femalein no acute distress sitting up in bed. HEENT:PERRL. Sclerae anicteric. Mucosa pink and moist. No ulcers or exudates Skin:Faint erythematous rash to elbow area. Chest:Clear to auscultation bilaterally. CV:RRR, no murmurs. [...] 72 hours (or 3 results) Recent Labs 06/03/19 0932 WBC 5.77 HB 7.6* HCT 22.9* PLT 55* NEUTROPERC 59.4 LYMPHPERC 10.9* MONOPERC 19.2* BASOPERC 0.2 EOSPERC 4.2* Chemistries: Last 72 Hours (or 3 results): Recent Labs 05/29/19 1045 05/31/19 1029 06/03/19 0932 NA 132* 130* 131* K 3.8 3.2* 3.3* CL 97 96* 94* BICARB 25 24 24 BUN 23* 19 31* CR 1.40* 1.24* 1.13* GLU 110* 125* 118* CA 9.1 9.1 9.1 AST 14 15 13 ALT 14 16 14 AP 114* 108* 108* TBILI 0.5 0.6 0.5 TP 6.6 6.7 7.0 ALB 3.4* 3.5 3.7 ANIONGAP 10 10 13* ANIONALBCOR 11 11 13* Lab Results Component Value Date MG 1.2 06/03/2019 Hematology: Hematologic Malignancy: MDS Conditioning Regimen: FluCyTBI Research study: Kyle "[id number]: A Multicenter, Randomized, Phase III Registration Trial [...] 10 6 per kg Stem Cell Day: +42 Post-transplant: -Day +21 chimerism ordered per study: 100% donor #2 CD33, CD56, CD3 and CD19 insufficient for analysis -BM Bx to be completed on day +30, day +100, 6 months, and 1 year post-transplant -Day +30 BMBX completed on 05/25 -Results: Hypocellular marrow (25%) with trilineage hematopoiesis. No increase in blast s, <2%. -Cytogenetics/FISH: normal female -VNTR: PENDING -Genetrails: PENDING -Around day + 60, we will return her to her primary attending with our BMT service, Dr. Sa nails; first appointment scheduled for 06/16 CBC reviewed and reveals anemia and thrombocytopenia. WBC/ANC WNL and platelets trending u pward independent of transfusion. 1U PRBCs today with increased fatigue and headaches. 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 Prophylaxis/Treatment: Prophylaxis with tacrolimus and MMF per [facility] protocol -Tacrolimus startedD-3 (goal 5-15) -MMF 1 gm PO TID D-3 to D+35 (to stop on 06/21/2019) Acute GvHD Staging: Skin: stage 0 Gut: stage 0 Liver: stage 0 Overall Grade: 0 [facility] phase 3 (IRB 24186) Acute GVHD Staging Complete on study visit [...] mL diarrhea/day 2 25-50% BSA 3.1-6 mg/dL 8583-7923 mL diarrhea/day 3 >50% BSA Generalized erythroderma [...] months ofanticoagulationwith apixiban, end date 04/14/19. 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 -s/p Lisinopril 5 mg PO daily (05/07-05/08) -DC triamterene/HCTZ on 06/03 with low-enzo BP and ongoing renal insufficiency GI: Nausea/abd cramping: prior to BMs -Closely monitor for additional s/s of GVHD -Antiemetics PRN Risk of gastritis: -Pepcid 20 mg BID Risk for VOD:no e/o this currently -Ursodiol 500 mgPO BID through Day +90 /Renal: SAM: sCr up to 1.43 on 05/20 2/2 supratherapeutic tacrolimus. Improving. -Tacro adjusted -1L NS bolus at each clinic visit. Psych: Insomnia: -Ramelteon ordered on 05/31, PA pending -Consider trazodone if ramelteon not covered. Depression:Stable, continue home SSRI. -Lexapro 20 mg PO daily Infectious Disease: Low-grade temps: likely 2/2 recent zarxio -Bld cx 06/03 PENDING No acute issues. Afebrile and no evidence [...] by PCR. -HHV6 and EBV weekly -EBV- 05/31- negative -HHv6- 05/24 undetected Lab Results Component Value Date CMVQUANTPCR Undetected 05/31/2019 CMVQUANTPCR Undetected 05/27/2019 CMVQUANTPCR Undetected 05/24/2019 CMVQUANTPCR Undetected 05/20/2019 Antifungal: Posaconazole for antifungal prophylaxis through day [...] NS IVPB at each clinic visit d/t renal insufficiency Lytes: Continue to check chemistries twice weekly. Replace per supportive care protocol. -HypoMg 2/2 CNI: start PO mag 1 tab BID on 06/03 Plan: -Mg sulfate 8g IV today. -1U PRBCs today -The tacrolimus dose will be adjusted when the tacrolimus trough is available. -DC triamterene/HCTZ and follow BPs in clinic. -Start mag+protein 1 tab BID, hold for loose stools. -F/u remaining marrow studies. -Ramelteon for sleep. PA pending. -Monitor rash on arm and start kenalog cream if rash worsens. -Return to clinic 06/07 to see me, sooner prn. [facility] AT [address] Mailcode: [place] [address] documented in this encounter Plan of Treatment Not on filedocumented as of this encounter Results HUMAN HERPES VIRUS 6 PCR (PLASMA OR CSF) (06/07/2019 9:28 AM PST) + + + + + [...] [facility] | | | | to the [facility] | | | | | | Test Directory for | | | | | | validated specimen | | | | | | source information: | | | | | | [email or web address] | | | | | | esting. [...] - [facility] | | | | [place], [place] [address] | | | | | | [phone]. | | | | | | Zeferino [...] A: | | | | | | [facility]/CS | | | | + + + [...] [facility] | [address] | [place], [place] | | | UNIV P[facility] - [facility] | | [address] | | + + + + + VERITO-LORENZO VIRUS PCR, PLASMA (06/07/2019 9:28 AM PST) + + + + + [...] | | performance characteristics determined by the [facility] | | | Diagnostics Center. It has not been cleared or approved by the Food | | | and Drug Administration. FDA approval is not required for clinical | | | use of this test, and therefore validation was done as required under | | | the requirements of the Clinical Laboratory Improvement Act of 1988. | | | The [facility] is a fully licensed and/or accredited clinical laboratory | | | under CLIA, CAP, and the [facility]. References: 1) | | | Phong [...] | | real-time polymerase chain reaction. Transfusion 2008;48:2446-4922. | | | 4) Bassam BEARDEN, Genny CASAS, Félix I, van keshia Bij W, et al. | | | Frequent monitoring of Verito-Lorenzo virus DNA load in unfractionated | | | whole blood is essential for early detection of posttransplant | | | lymphoproliferative disease in high-risk patients. Blood | | | 2001;97(5):0295-9820. | | + + + + + + + + | Performing | Address | City/State/Zipcode | Phone Number | | Organization | | | | + + + + + | [facility] | [address] | [place] [address] | | | DIAGNOSTIC | [address] | | | | LABORATORIES | | | | + + + + + TACROLIMUS, WHOLE BLOOD (06/07/2019 9:28 AM PST) + +-------+ + + + | Component | Value | Ref Range | Performed | Pathologist | | | | | At | Signature | + +-------+ + + + | TACROLIMUS | 6.6 | 5.0 - 15.0 | [facility] | [...] | Test performed by immunoassay using [employer] i2000. . | [facility] | | Samples [...] | + + + + + | [facility] | [address] | [place] [address] | | | SERVICES, SPECIAL | [address] | | | | IMM + COAG | | | | + + + + + CMV PCR QUANTITATION, PLASMA (06/07/2019 9:28 AM PST) + + + + + [...] | | characteristics determined by the [facility] | | | Molecular Diagnostic Center. It has not been cleared or approved by | | | the Food and Drug Administration. FDA approval is not required for | | | clinical use of this test, and therefore validation was done as | | | required under the requirements of the Clinical Laboratory Improvement | | | Act of 1988. The [facility] | | | Diagnostic Center is a fully licensed and/or accredited clinical | | | laboratory under CLIA, CAP, and the [facility]. | | + + + + + + + + | Performing | Address | City/State/Zipcode | Phone Number | | Organization | | | | + + + + + | [facility] | [address] | [place] [address] | | | DIAGNOSTIC | [address] | | | | LABORATORIES | | | | + + + + + [facility] - LDH TOTAL, PLASMA (06/07/2019 9:28 AM PST) + +---------+ + + + | Component | Value | Ref Range | Performed | Pathologist | | | | | At | Signature | + +---------+ + + + | LD TOTAL, | 148 | <=250 U/L | [facility] | | [...] | + + + + + | [email or web address] | [address] | [place] [address] | | | SERVICES, [place] | | | | | [facility] + [facility]ALING | | | | + + + + + [facility] - COMPLETE METABOLIC SET (06/07/2019 9:28 AM PST) + +---------+ + + + | Component | Value | Ref Range | Performed | Pathologist | | | | | At | Signature | + +---------+ + + + | GLUCOSE, | 111 (H) | 70 - 99 mg/dL | [...] +---------+ + + + | CREATININE | 0.95 | 0.60 - 1.10 | [facility] | [...] +---------+ + + + | SODIUM, | 133 [...] +---------+ + + + | CALCIUM(ALB | 9.6 | 8.6 - 10.2 | [facility] | | | CORRECTED) | | mg/dL | LABORATORY | | | | | | SERVICES, | | | | | | [facility] | | | | | | [facility] + | | | | | | HEALING | | + +---------+ + + + | BILIRUBIN | 0.5 [...] + + + | ALK PHOS | 92 | 42 - 98 U/L | [facility] [...] MDRD equation recommended by the National | [facility] | | Kidney Disease Education Program. Estimated [...] LABORATORY | [address] | [place] [address] | | | SERVICES, [place] [facility] | | | | | [facility] + [facility] | | | | + + + + + [facility] - PHOSPHORUS, PLASMA (06/07/2019 9:28 AM PST) + +-------+ + + + [...] | + + + + + | [facility] | [address] | [place] [address] | | | SERVICES, [place] [facility] | | | | | [facility] + [facility] | | | | + + + + + [facility] - MAGNESIUM, PLASMA (06/07/2019 9:28 AM PST) + +---------+ + + + [...] [facility] | [address] | [place] [address] | | | [facility] | | | | [...]
--- OUTSIDE RECORDS SUMMARY | ~2020-03-12 | XMS | Encounter Summary ---
Demographics + + + | Address | [address] | | | [place] [address] | + + + | Home Phone [...] Team Providers + +------+ + | Care Gambreler Name | Role | Phone | + +------+ + | Meredith Sanchez | PCP | | + +------+ + Encounter Details +--------+ + + + + | Date | Type | Department | Care Team | Description | +--------+ + + + + | 07/15/ | Pharmacy | Specialty Pharmacy | | | | 2019 | Visit | Services [address] | | | | | | [address] | | | | | | [place], [place] | | | | | | [address] | | | | | | [phone] | | | +--------+ + + + [...]
--- OUTSIDE RECORDS SUMMARY | ~2020-03-12 | XMS | Encounter Summary ---
Demographics + + + | Address | [address] | | | [place] [address] | + + + | Home Phone [...] Team Providers + +------+ + | Care Toter Name | Role | Phone | + +------+ + | Meredith Sanchez | PCP | | + +------+ + Encounter Details +--------+ + + + + | Date | Type | Department | Care Team | Description | +--------+ + + + + | 04/22/ | Lab | Cellular Therapy | Sejal De La Torre | | | 2019 | Requisition | Lab [address] | N, DO [address] | | | | | [address] | [address] | | | | | [place], [place] | [place], [place] | | | | | [address] | [address] | | | | | | [phone] | | | | | | | [...] | + +--------+ + + + | [facility] WASH | Routin | 04/22/2019 | Myelodysplastic | | | | e | 9:20 AM | syndrome, | | | | | PDT | unspecified (HCC) | | + +--------+ + + + | [facility] THAW | Routin | 04/22/2019 | Myelodysplastic | Results for this | | | e | 9:20 AM | syndrome, | procedure are in the | | | | PDT | unspecified (HCC) | results section. | + +--------+ + + + documented in this encounter Results [facility] WASH (04/22/2019 9:20 AM PDT) + + | Specimen | + + | Cord blood | + + + + + + + | Performing | Address | City/State/Zipcode | Phone Number | | Organization | | | | + + + + + | [facility] | [address] | [place], [place] | | | THERAPY LAB | [address] | [address] | | + + + + + [facility] THAW (04/22/2019 9:20 AM PDT) + + + + + + | Component | Value | Ref Range | Performed | Pathologist | | | | | At | Signature | + + + + + + | PRODUCT | [facility] HPC, Cord Blood | | [facility] | | | TYPE | [id number] | | CELL | | | | | | PROCESSING | | | | | | LAB | | + + + + + + | TRANSPLANT | 04/22/2019 | | [facility] | | | DATE | | | CELL | | | | | | PROCESSING | | | | | | LAB | | + + + + + + | PRODUCT | 106 | mL | [facility] | | | VOLUME TX | | | CELL | | | | | | PROCESSING | | | | | | LAB | | + + + + + + | CD34 DOSE | 0.10 | x10 6/Kg | [facility] | | | | | | CELL | | | | | | PROCESSING | | | | | | LAB | | + + + + + + | TNC DOSE | 2.03 | x10 7/Kg | [facility] | | | | | | CELL | | | | | | PROCESSING | | | | | | LAB | | + + + + + + | TMNC DOSE | 1.46 | x10 7/Kg | [facility] | | | | | | CELL | | | | | | PROCESSING | | | | | | LAB | | + + + + + + | HPCC THAW | 0.56 | x10 7/kg | [facility] | | | CD3 DOSE | | | CELL | | | | | | PROCESSING | | | | | | LAB | | + + + + + + + + | Specimen | + + | Cord blood | + + + + + + + | Performing | Address | City/State/Zipcode | Phone Number | | Organization | | | | + + + + + | [facility] | [address] | [place], [place] | | | THERAPY LAB | [address] | [address] | | + + + + + | [facility] | [address] | [place], [place] | | | PROCESSING LAB | [address] | [address] | | + + + + + documented in this encounter Visit Diagnoses + + | Diagnosis | + + | Myelodysplastic syndrome, unspecified (HCC) Myelodysplastic syndrome, unspecified | + + documented in this encounter"
--- OUTSIDE RECORDS SUMMARY | ~2020-03-12 | XMS | Encounter Summary ---
Demographics + + + | Address | [address] | | | [place] [address] | + + + | Home Phone [...] Team Providers + +------+ + | Care Library Serials Assistant Name | Role | Phone | + +------+ + | Meredith Sanchez | PCP | | + +------+ + Reason for Visit + +--------+ + | Reason | Onset | Comments | | | Date | | + +--------+ + | Social Work Notes | 03/11/ | | | | 2018 | | + +--------+ + Encounter Details +--------+ + + + + | Date | Type | Department | Care Team | Description | +--------+ + + + + | 03/11/ | Telephone | [facility] | Work, Social | Social Work Notes | | 2019 | | Clinics at S | | | | | | [facility] [address] | | | | | | [address] [facility] | | | | | | [facility] and Healing, | | | | | | [address] | | | | | | [place], [place] | | | | | | [address] | | | | | | [phone] | | | +--------+ + + + [...] Notes Telephone Encounter - Elham Delcid - 03/11/2019 2:02 PM PDTReceived a message from Sean Meadows to cancel lodging. elepho ne Encounter - Elham Delcid - 03/11/2019 1:02 PM PDTSocial Work Specialist Brief Intervent ion Identified needs: Lodging 03/13 to 03/14 Interventions: Received a referral from Sean BUTLER to assist with lodging. I have made a rese rvation with private home. Lodging Plan: 03/13 to 03/14 Private home using PAF Elham ANDERSON [employer] Coll[employer] Repair InstructorSocial Services Aide [address] Mailcode: [id number] [address] documented in this encounte r Plan of Treatment Not on filedocumented as of this encounter Visit Diagnoses Not on filedocumented in this encounter"
--- OUTSIDE RECORDS SUMMARY | ~2020-03-12 | XMS | Encounter Summary ---
Demographics + + + | Address | [address] | | | [place] [address] | + + + | Home Phone [...] Team Providers + +------+ + | Care Asphalt Coater Name | Role | Phone | + +------+ + | Meredith Sanchez | PCP | | + +------+ + Encounter Details +--------+ + + + + | Date | Type | Department | Care Team | Description | +--------+ + + + + | 08/03/ | Document-Sc | UNKNOWN DEPARTMENT | Other, Faculty | | | 2019 | anned | [address] | [phone] | | | | | [address] | | | | | | [place] | | | | | | [address] | | | +--------+ + + + [...]
--- OUTSIDE RECORDS SUMMARY | ~2020-03-12 | XMS | Encounter Summary ---
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 | | | | | (graft | Fax: | [place], [place] | | | | | versus host | [phone] | [phone] | | | | | disease) | | Phone: | | | | | (HCC) | | [phone] | | | | | Procedures | | Fax: | | | | | IR CENTRAL | | [phone] | | | | | VENOUS | | | | | | | ACCESS | | | | | | | PROCEDURE | | | | | | | OK REMOVAL | | | | | | | TUNNELED CV | | | | | | | CATH OK | | | | | | | REMOVAL RICO | | | | | | | CV CATH W SQ | | | | | | | PORT/PUMP | | | | | | | OK | | | | | | | FLUOROGUIDE | | | | | | | FOR VEIN | | | | | | | DEVICE | | | +--------+--------+ + + + + Reason for Visit PROC - Dept/Practice Procedure (Routine) +--------+--------+ + + + + | Status | Reason | Specialty | Diagnoses / | Referred By | Referred To | | | | | Procedures | Contact | Contact | +--------+--------+ + + + + | Closed | | Interventiona | Diagnoses | [place], | I[facility] | | | | l Radiology | S/P cord | Sejal Meadows, | [facility] [address] | | | | | blood | DO [address] | [address] | | | | | transplantat | [address] | [address] | | | | | ion MDS | [address] | Mailcode: | | | | | (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 | | | | | (graft | Fax: | [place], [place] | | | | | versus host | [phone] | [address] | | | | | disease) | | Phone: | | | | | (HCC) | | [phone] | | | | | Procedures | | Fax: | | | | | IR CENTRAL | | [phone] | | | | | VENOUS | | | | | | | ACCESS | | | | | | | PROCEDURE | | | | | | | OK REMOVAL | | | | | | | TUNNELED CV | | | | | | | CATH OK | | | | | | | REMOVAL RICO | | | | | | | CV CATH W SQ | | | | | | | PORT/PUMP | | | | | | | OK | | | | | | | FLUOROGUIDE | | | | | | | FOR VEIN | | | | | | | DEVICE | | | +--------+--------+ + + + + Encounter Details +--------+ + + + + | Date | Type | Department | Care Team | Description | +--------+ + + + + | 08/02/ | Hospital | [facility] | Sejal De La Torre | | | 2020 | Encounter | Interventional | DO Abdiel [address] | | | | | [facility] | [address] | | | | | [address] | [place], [place] | | | | | [address] [facility] | [address] | | | | | [facility], | [phone] | | | | | [place] [address] | | | | | | [phone] | | | +--------+ + + + [...] + + + | Blood Pressure | 136/82 | 08/02/2019 1:47 PM | | | | | PST | | + + + + + | Pulse | 80 | 08/02/2019 1:47 PM | | | | | PST | | + + + + + | Temperature | 36.6 C (97.9 F) | 08/02/2019 1:47 PM | | | | | PST | | + + + + + | Respiratory Rate | - | - | | + + + + + | Oxygen Saturation | 98% | 08/02/2019 1:47 PM | | | | | PST [...] + + documented as of this encounter Discharge Instructions Instructions Meredith Borden RN - 08/02/2019 Interventional Radiology Tunneled Central Line Catheter Suture Information This tunneled central line catheter has been secured using a dissolvable suture only. You m ay see part of this dissolvable suture at the catheter exit site. It should not be cut. The tunneled catheter has a cuff that is located 2-4 cm inside the tunnel under the skin. I t's purpose is to "anchor" the catheter by allowing the body's tissue to incorporate into t he cuff. If you see this cuff exposed during any dressing changes, please call the [facility] Radiology (IR) Department. During Office Hours Thursday- Thursday 8am - 4pm Call IR office [phone] and ask office staff to notify [facility] or . They will follow up. For Holidays or Weekends Call [phone] ask to speak with the IR Fellow monotyper AttachmentsThe following attachments cannot be sent through Care Everywhere.[facility]: Central L ine Catheter Associated Bloodstream Infections (Wallisian)Tunneled Catheter: Post-op (Wallisian) documented in this encounter Medications at Time of Discharge [...] documented as of this encounter Progress Notes Mohan Arguelles MD - 08/02/2019 2:00 PM PSTINTERVENTIONAL RADIOLOGY BRIEF PROCEDURE NOTE DATE: 08/02/2019 1:58 PM PROCEDURE: DL Groshong removal PRE-PROCEDURE DIAGNOSIS: MSD POST-PROCEDURE DIAGNOSIS: Same IR ATTENDING: Everett Richardson MD, PhD IR FELLOW: Mohan Arguelles MD ACCESS: existing left IJ MEDICATIONS: Lidocaine COMPLICATION(S): None immediate ESTIMATED BLOOD LOSS: 0 cc FINDINGS: 1. Removal of left IJ DL groshong 2. Catheter intact PLAN: 1. DC home with dischage instructions Full dictated report forthcoming, which can be found under the imaging tab in Epic. 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
--- OUTSIDE RECORDS SUMMARY | ~2020-03-12 | XMS | Encounter Summary ---
Demographics + + + | Address | [address] | | | [place] [address] | + + + | Home Phone [...] Team Providers + +------+ + | Care Sliver Former Name | Role | Phone | + +------+ + | Meredith Sanchez | PCP | | + +------+ + Encounter Details +--------+ + + + + | Date | Type | Department | Care Team | Description | +--------+ + + + + | 05/27/ | [facility] | [facility] | Sam Baron FNP | | | 2019 | | Clinics at S | [address] | | | | | [place] [address] | [address] [place], | | | | | [facility] | [place] [address] | | | | | [facility], | [phone] | | | | | [facility] [address] | | | | | | [place], [place] | | | | | | [address] | | | | | | [phone] | | | +--------+ + + + [...]
--- OUTSIDE RECORDS SUMMARY | ~2020-03-12 | XMS | Encounter Summary ---
Demographics + + + | Address | [address] | | | [place] [address] | + + + | Home Phone [...] Team Providers + +------+ + | Care Ignition Specialist Name | Role | Phone | [...] | +--------+ + + + + | 01/14/ | Hospital | [facility] [address] | Supa [place], | | | 2019 - | Encounter | [place] Mailcode: | MD Reji [address] | | | | | [id number] | [address] | | | 01/17/ | | Steph[place], | [place], [place] | | | 2018 | | [place] [address] | [phone] | | | | | [phone] | [phone] | | | | | | | | | | | | Aniya Banks, | | | | | | MD Ney Webb | | | | | | [address] | | | | | | [place], [place] | | | | | | [address] | | | | | | [phone] | | | | | | | | | | | | Sejal De La Torre, | | | | | | [address] | | | | | | [address] | | | | | | [place], [place] | | | | | | [address] | | | | | | [phone] | | | | | | | [...] + + + | Blood Pressure | 160/86 | 01/17/2019 2:32 PM | | | | | PDT | | + + + + + | Pulse | 65 | 01/17/2019 2:32 PM | | | | | PDT | | + + + + + | Temperature | 36.9 C (98.4 F) | 01/17/2019 2:32 PM | | | | | PDT | | + + + + + | Respiratory Rate | 16 | 01/17/2019 2:32 PM | | | | | PDT | | + + + + + | Oxygen Saturation | 97% | 01/17/2019 2:32 PM | | | | | PDT | | + + + + + | Inhaled Oxygen | - | - | | | Concentration | | | | + + + + + | Weight | 75 kg (165 lb 5.5 | 01/16/2019 4:36 PM | | | | oz) | PDT | | + + + + + | Height | 157.5 cm (5' 2") | 01/14/2019 3:08 PM | | | | | PDT | | + + + + + | Body Mass Index | 30.24 | 01/14/2019 3:08 PM | | | [...] + documented as of this encounter Discharge Summaries Best Calabrese PA-C,GREG - 01/17/2019 3:04 PM PDT [facility] Discharge Summary Discharging Provider: Best Calabrese PA-C,GREG Discharging Attending Physician: Nathan De La Torre DO Hospital Stay: 3 day(s) PCP: LACY Perez Admission Date: 01/14/2019 Discharge Date: 01/17/19 Hospital Stay: 3 day(s) Reason for Admission: Zoster Infection Principal Final Diagnosis: Herpes Zoster Additional Diagnoses: MDS (myelodysplastic syndrome) (HCC) Procedures: BMBx 01/17/19 - PENDING Hospital Course: Analy Hopper is a 53 yo female with a hx of AML s/p 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 She gradually developed a painful rash on her right anterior chest over a week prior to admission. She was also having fevers and presented to outside ED and was transferred to [facility] for evaluation of Zoster. She was admitted and started IV Acyclovir and evaluated by ID. She was also treated for NTP fever and started on Cefepime. Her infecti ous workup was negative. Her rash responded to treatment and currently, her lesions are full y crusted. While admitted, she had a PICC placed however developed a DVT of BLE on 01/16 and PICC was removed. She was started on Apixaban for anticoagulation and will continue treatmen t for 3 months (approx 04/19) unless she develops thrombocytopenia from AML treatment. She w ill continue treatment for VZV x 7 days and continue Valacyclovir 500mg BID for prophylaxis (Acyclovir DC'ed). She was also started on NTP prophylaxis with Levaquin and Voriconazole (F luconazole DC'ed). On day of discharge, she had a BMBx - results PENDING. She will return to [facility] for transplant evaluation with Dr. Sejal De La Torre for further management. Discharge Medications: Medication List START taking these medications * apixaban 5 mg Tab Commonly known as: ELIQUIS Take 1 tablet by mouth two times daily for 7 days. After 7 days, the dose will decrease to 2.5mg. * apixaban 2.5 mg Tab Commonly known as: ELIQUIS Take 1 tablet by mouth two times daily. Start taking on: 01/24/2019 levoFLOXacin 500 mg Tab Commonly known as: LEVAQUIN Take 1 tablet by mouth once daily. Take while your ANC<500. Dr. Sequeira can advise. Ind ications: infection prevention Start taking on: 01/18/2019 * valACYclovir 1 g Tab Commonly known as: VALTREX Take 1 tablet by mouth three times daily for 7 days. After finishing 7 days, transition to 500mg twice daily. Indications: shingles * valACYclovir 500 mg Tab Commonly known as: VALTREX Take 1 tablet by mouth two times daily. Indications: viral infection prevention * voriconazole 200 mg Tab Commonly known as: VFEND Take 1 tablet by mouth twice daily (combine with 50mg tablet for a total dose of 250mg oral ly twice daily). Indications: fungal infection prevention * voriconazole 50 mg Tab Commonly known as: VFEND Take 1 tablet by mouth twice daily (combine with 200mg tablet for a total dose of 250mg ora lly twice daily). Indications: fungal infection prevention * This list has 6 medication(s) that are the same as other medications prescribed for you. Read the directions carefully, and ask your doctor or other care provider to review them wi th you. CONTINUE taking these medications escitalopram oxalate 10 mg Tab Commonly known as: LEXAPRO Take 10 mg by mouth once daily. ondansetron 8 mg Tab Commonly known as: ZOFRAN Take 8 mg by mouth every twelve hours as needed. triamterene-hydrochlorothiazide 37.5-25 mg Cap Commonly known as: DYAZIDE Take 1 capsule by mouth once daily. STOP taking these medications acyclovir 400 mg Tab Commonly known as: ZOVIRAX ciprofloxacin HCl 500 mg Tab Commonly known as: CIPRO dexAMETHasone 4 mg Tab Commonly known as: DECADRON ferrous sulfate 325 mg (65 mg iron) Tab fluconazole 200 mg Tab Commonly known as: DIFLUCAN VIDAZA INJ Rationale for Medication Changes: Medications changed based on patient symptoms, medical interventions and chronic disease luis sweeney. Allergies: Allergies Allergen Reactions Sulfa (Sulfonamide Antibiotics) Hives Code Status: Full POLST completed: no Additional Instructions: Diet Instructions Diet Type: Regular diet- There are no restrictions to your diet. You may eat or drink wha tever you prefer, though healthy food choices are recommended. - Activity Instructions Activity restrictions: Avoid large crowds and people that are obviously ill. Practice good hand washing hygiene. Wear a mask when you are coming in and out of clinic or in a crowded or poorly ventilated place. You do not need to wear a mask around family/friends, in a well- ventilated public area or outside unless you are in a construction area that may have dust/d irt particles in the air. No driving when using narcotics or sedating medications. Careful with physical activity when your platelets are low to prevent bleeding.Toothbrush i s okay to use when Neutrophils are >1500 and platelets are >50,000. Flossing is okay with ne utrophils are greater than 1500 and platelets are > 100,000. Contact with pets (but not feces) is safe with the exception of reptiles, amphibians, and b irds. Skin Care: Sun block with >15 SPF should be worn at all times of sun exposure. Skin is mo re sensitive to sun exposure after radiation or chemotherapy. Additional Instructions Call the BMT clinic ([phone]) or BMT person on-call ([phone]) for: Any temp > 100.4 Nausea/vomiting unresponsive to anti-nausea medications Significant diarrhea despite Imodium Inability to drink at least 2 liters of fluid daily You develop a rash Bleeding Over the counter Medication- use as needed: __ Benadryl (Diphenhydramine) 25 mg by mouth every 6 hours as needed for sleep, itching, na usea or restlessness. __ Antacids - One ounce or one tablet every 2-4 hours as needed for heartburn. Call your d octor if heartburn persists or isn t relieved with this medication. __ Anusol Cream - Apply a small amount to external rectal area as needed for hemorrhoidal d iscomfort. Do not apply internally. Call your doctor for persistent discomfort, bleeding o r pain. __ Lubriderm lotion - apply to skin twice a day as needed to treat dry skin __ Eucerin Cream - apply to skin twice a day as needed to treat dry skin. __ Sunscreen - as needed SPF 15 or greater. Apply to sun-exposed skin before exposure to direct sunlight or outside activities. Follow Up: Future Appointments Provider Department Dept Phone Center 01/18/2019 11:00 AM IV THERAPY Vascular Access at [facility] [phone] IV THERAPY 02/03/2019 9:20 AM BMT INFUSION Hematology/Medical Oncology at [facility] [phone] [facility] 02/03/2019 10:30 AM Sejal De La Torre [facility] Arrive at: 11th Floor Hematology/Medical Oncology [phone] [facility] 02/03/2019 11:00 AM [facility] Hematologic Malignancies at [facility] Arrive at: 11th Floor Hematology/Medical Oncology [phone] HemOnc Discharge Physical Exam: Last 24 hour min/max Temp: 36.9 C (98.4 F) Temp Min: 36.7 C (98.1 F) Max: 37.2 C (99 F) Pulse: 65 Pulse Min: 65 Max: 86 Resp: 16 Resp Min: 16 Max: 18 BP: 160/86 BP Min: 132/69 Max: 160/86 SpO2: 97 % SpO2 Min: 94 % Max: 97 % Body mass index is 30.24 kg/m. General: This is a female in no acute distress. HEENT: PERRL. Sclerae anicteric. Mucosa pink and moist without erythema or exudate. Skin: Right chest wall - vesicular lesion with erythema and no discharge, crusted; well de marcated Chest: Lungs clear to auscultation bilat. CV: RRR, no murmurs. Abdomen: S/NT/ND with NABS. No HSM appreciated. Extremities: Pulses strong and equal bilaterally. LUE with 1+ edema and TTP along PICC dr soto NeuroPsych: Alert and oriented x 3. Grossly nonfocal exam. CVC: Left PICC CDI Best Calabrese PA-C, MPAS [facility] [address] [facility] Mailcode: [facility] [place] [address] Associated attestation - Sejal De La Torre DO - 01/26/2019 10:39 AM PDTHematologic Malign ancies/Bone Marrow Transplant Inpatient Attending Discharge Note: 01/17/2019 I rounded today in conjunction with the Advanced Practice Provider. I saw the patient, reviewed the history and relevant studies, and developed an assessment a nd plan. Briefly, Analy Hopper is a 53 yo female with a hx of MDS-EB-2 s/p C#2 of Vidaza (D29C2) a dmitted for evaluation neutropenic fever and treatment of Zoster. She was admitted and start ed IV Acyclovir and evaluated by ID. She was also started on Cefepime. Her infectious workup was negative. Her rash responded to treatment and currently, her lesions are fully crusted. While admitted, she had a PICC placed however developed a DVT of BLE on 01/16 and PICC was r emoved. She was started on Apixaban for anticoagulation and will continue treatment for 3 mo nths (approx 04/19). She will need to hold AC for plt <50. She will continue treatment for VZV x 7 days and continue Valacyclovir 500mg BID for prophylaxis. She will also continue Lev aquin and Voriconazole given her neutropenia. ANC 420 on day of discharge. On day of dischar ge, she also had a BMBx - results PENDING. She is undergoing workup and evaluation for trans plant following CR1. She will see her local oncologist, Dr. Sequeira this week and will F U with me the following week. Subjective: Feeling well. Ready to go home. Objective: vitals reviewed and stable. Alert, oriented, no acute distress. Oropharynx unremarkable. RRR CTAB Soft, NT, ND, NABS Nonfocal neuro exam Left arm pain with swelling Large round vesicular lesion on right chest, crusted Please see the Advanced Practice Provider documentation from today for the details regardin g assessment and plan. Analy Hopper is a 53 y.o. female with the following hospitalization problem list: Patients Hospital Problem List: Active Hospital Problems 1) MDS (myelodysplastic syndrome) (HCC) 2) Herpes zoster with complication Sejal De La Torre DO Flight Service Agenttobacco packer [facility] [address] [place] [address] documented in this encounter Discharge Instructions Discharge Instr - Activity Best Calabrese PA-C,[facility] - 01/17/2019 11:31 AM PDTActivity restri ctions: Avoid large crowds and people that are obviously ill. Practice good hand washing hyg iene. Wear a mask when you are coming in and out of clinic or in a crowded or poorly ventila martha place. You do not need to wear a mask around family/friends, in a well-ventilated public area or outside unless you are in a construction area that may have dust/dirt particles in the air. No driving when using narcotics or sedating medications. Careful with physical activity when your platelets are low to prevent bleeding.Toothbrush i s okay to use when Neutrophils are >1500 and platelets are >50,000. Flossing is okay with ne utrophils are greater than 1500 and platelets are > 100,000. Contact with pets (but not feces) is safe with the exception of reptiles, amphibians, and b irds. Skin Care: Sun block with >15 SPF should be worn at all times of sun exposure. Skin is mo re sensitive to sun exposure after radiation or chemotherapy. Discharge Instr - Diet Best Calabrese PA-C, MPAS - 01/17/2019 11:31 AM PDTDiet Type: Regular diet- There are no restrictions to your diet. You may eat or drink whatever you prefer, o [facility] healthy food choices are recommended. Discharge Instr - Diagnoses Best Calabrese PA-C, MPAS - 01/17/2019 11:29 AM PDT Patient Active Problem List Diagnosis MDS (myelodysplastic syndrome) (HCC) Herpes zoster with complication Discharge Instr - Procedures Best Calabrese PA-C, MPAS - 01/17/2019 11:30 AM PDTBMBx 01/17/19 Discharge Instr - Hospital Course Best Calabrese PA-C, MPAS - 01/17/2019 11:31 AM PDTYou were admitted for evaluation of shingles on your right chest. You were started on IV antivirals and once the lesions crusted over, you were transitioned to oral antivirals. You had a bone marrow biopsy to prepare for transplant. You will be discharged home to follow up with Dr. Renetta christy for continued chemo and will return to [facility] to see Dr. De La Torre.Electronically sign ed by Best Calabrese PA-C, MPAS at 01/17/2019 11:31 AM PDT Additional Instructions Best Calabrese PA-C, MPAS - 01/17/2019 11:31 AM PDTCall the BMT clini c ([phone]) or BMT person on-call ([phone]) for: Any temp > 100.4 Nausea/vomiting unresponsive to anti-nausea medications Significant diarrhea despite Imodium Inability to drink at least 2 liters of fluid daily You develop a rash Bleeding Over the counter Medication- use as needed: __ Benadryl (Diphenhydramine) 25 mg by mouth every 6 hours as needed for sleep, itching, na usea or restlessness. __ Antacids - One ounce or one tablet every 2-4 hours as needed for heartburn. Call your d octor if heartburn persists or isn t relieved with this medication. __ Anusol Cream - Apply a small amount to external rectal area as needed for hemorrhoidal d iscomfort. Do not apply internally. Call your doctor for persistent discomfort, bleeding o r pain. __ Lubriderm lotion - apply to skin twice a day as needed to treat dry skin __ Eucerin Cream - apply to skin twice a day as needed to treat dry skin. __ Sunscreen - as needed SPF 15 or greater. Apply to sun-exposed skin before exposure to direct sunlight or outside activities. documented in this encounter Medications at Time [...] documented as of this encounter Progress Notes Best Calabrese PA-C,[facility] - 01/16/2019 5:15 PM PDT Daily GISSEL Note - Chemotherapy Admit [facility] Attending: Nathan Beebe DO [facility] Physician: Nathan De La Torre DO [facility] Oncologist: MD Hua PCP: LACY Perez Date of Admission: 01/15/19 Hematologic Malignancy: AML Reason for admission: VZV 24 Hour Events/Current Daily Plan: -AML: s/p C#2 Vidaza OP. -Pancytopenia/Anemia/Thrombocytopenia: Standard transfusion parameters. No blood product rivas pport indicated today. 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 Subjective: Noticed her LUE is swollen and painful around PICC site Objective: Last Vitals: BP 132/69 (BP Location: Right upper arm, Patient Position: Sitting) | Pulse 7 8 | Temp 37 C (98.6 F) (Oral) | Resp 18 | Ht 1.575 m (5' 2") | Wt 75 kg (165 lb 5.5 oz) | SpO2 96% | BMI 30.24 kg/m | BSA 1.81 m 24 Hour Vital Min/Max: Systolic (24hrs), Av , Min:122 , Max:137 Diastolic (24hrs), Av, Min:57, Max:80 Pulse Min: 77 Max: 89 Temp Min: 37 C (98.6 F) Max: 37.3 C (99.1 F) Resp Min: 18 Max: 18 SpO2 Min: 95 % Max: 98 % Intake/Output Summary (Last 24 hours) at 01/16/2019 1715 Last data filed at 01/16/2019 1707 Gross per 24 hour Intake 4932.5 ml Output 2360 ml Net 2572.5 ml Physical Exam: General: This is a female in no acute distress. HEENT: PERRL. Sclerae anicteric. Mucosa pink and moist without erythema or exudate. Skin: Right chest wall - vesicular lesion with erythema and serous discharge; well demarca martha Chest: Lungs clear to auscultation bilat. CV: RRR, no murmurs. Abdomen: S/NT/ND with NABS. No HSM appreciated. Extremities: Pulses strong and equal bilaterally. LUE with 1+ edema and TTP along PICC dr soto NeuroPsych: Alert and oriented x 3. Grossly nonfocal exam. CVC: Left PICC CDI Laboratory Results: Recent Labs 01/14/19 1227 01/15/19 0420 01/16/19 0405 NA 138 141 143 K 3.8 3.0* 3.4 CL 105 107 111* BICARB 26 26 25 BUN 5* 6 7 CR 0.44* 0.50* 0.60 GLU 90 82 82 CA 8.7 8.3* 8.2* AST 29 12 14 ALT 28 27 24 AP 87 81 80 TBILI 0.4 0.3 0.2* TP 6.2* 5.6* 5.4* ALB 1.9* 1.8* 1.8* Recent Labs 01/14/19 1227 01/15/19 0420 01/16/19 0405 WBC 0.93* 1.15* 1.29* RBC 2.73* 2.47* 2.49* HB 8.1* 7.5* 7.4* HCT 25.4* 22.9* 23.5* PLT 411* 453* 486* NEUTROPERC 50.4 40.8* 31.7* LYMPHPERC 36.6 51.3* 58.9* MONOPERC 10.8* 6.1 7.0 BASOPERC 1.1 0.9 0.8 EOSPERC 0.0* 0.9* 0.8* Meds: Reviewed on rounds, see current MAR for medication list SUMMARY OF PATIENT'S HOSPITALIZATION History of Present Illness: (from H&P) Analyliana Hua a 53 year old female whois presenting today as consult for bone ma rrow transplantation as curative strategy for 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 The patient burgos s a past medical history that includesuterine fibroids and fibroid removal from the left b reast.Her hematogical history dates back to 2016when she noted progressive fatigue. 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 She was working 6 days per week and thought she was working too hard.[facility]to give herself some time to feel better.She had been to various phys icians in [place] for fatigue without answers. In January 15, she developedfevers up to 104. She wastested for lyme disease, rheumatological conditions which were all negative. She began to notice that her counts were dropping.[place] [facility] [place] [facility] [place] to live with her niecein 06/2018.She [facility]alocal [facility] in [facility] 07/2018 Arturo who did further testing. Labs on10/07/18showed normal chemistries, Bilirubin 1.4, hepatitis negative, ESR elevated at 174 with RA, RIOS C3/C 4 negative. CBC showed WBC 2.4, Hb 10.8, Plt 166K, ANC 1529. She was referred to Dr. Clive grace(medical oncology)on 10/29. Bone marrow biopsywas performed on11/05showing hyperc ellular marrow (70%) with 18% by morphology and 26% on flow. Mild erythroid hyperplasia and megakaryocytic atypia. Blast immunophenotype was positive for CD33, CD45 dim, CD34, CD15, CD 117, CD 11c, MPO. 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 Cytogenetics w ere normal. MDS and AML FISH panel was negative. NGS panel was negative for FLT3, NPM1, CEBP A, c-KIT, IDH1, IDH2, TP53. She started Vidaza locally on December 24 however developed a rash to the SQ injection and missed D3, dexamethasone was added for D4-D7. She missed D7 of C1. She has since completed 2 cycles of Vidaza, and is scheduled to have a bone marrow biopsy f or disease staging at [facility] in the upcoming weeks. Hospitalization History: Hematology: #Hematologic Malignancy: AML Pertinent Diagnostics: -BM Bx: 11/05/18 showed a hypercellular marrow with ~18% blasts by morphology and 26% by fl ow. -LP: N/A Treatment -Chemotherapy regimen: Vidaza C#2 12/30 -Azacitidine 75mg/m2 subQ Q7 days Patient is a candidate for transplant based on Dx and prognostic feature. Request [facility] approval for typing. #Leukopenia, Anemia, Thrombocytopenia: -See supportive care #Supportive Care: Growth factor: patient will receive Neulasta 24 hours after completion of chemotherapy Labs: Continue to check CBC daily Transfusion parameters: -Transfuse PRBCs for HCT <21% if asymptomatic OR <24% if symptomatic -Transfuse PPH for platelet count <10,000 sooner PRN s/s bleeding. Cardiovascular: #LUE DVT: noted with edema and tenderness on 01/16; LUE Doppler confirmed on 01/16 -PICC removed; plan to replace 01/17 - patient would like to discuss options before placeme nt -No anticoagulation at this time Pulmonary: No acute issues GI: No acute issues /Renal: No acute issues Infectious Disease: #Herpes Zoster: Right chest, continue precautions -continue Acyclovir 10mg/kg IV Q8 hours #NTP fever: likely secondary to VZV, noted 01/15/19, Workup including CXR NTD -BCx Final PENDING -Cefepime (01/15/19) #Prophylaxis: Bacterial: Cefepime. Fungal: Vori Viral: HD Acyclovir IV PCP: N/A Fluid/Nutrition/Lytes: #Nutrition: Current diet -- Regular No Janee's yogurt or Kefir. #Fluid: NS at 75 mL/hr #Lytes: -Continue to check chemistries daily -Replace per supportive care protocol. Disposition: TBD Best Calabrese PA-C,GREG [address] Mailcode: [place] [address] ejal De La Torre DO - 01/16/2019 3:29 PM PDT Hematology/Oncology & BMT Attending Daily Progress Note Date of service: 01/16/2019 I personally saw this patient, performed the bradley elements of the physical examination, and formulated the assessment and plan with the advanced practice provider. Interval history, cu rrent medications and laboratories were reviewed. My direct observations and changes are not ed below. 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 A/P Patients Hospital Problem List: Active Hospital Problems 1) MDS (myelodysplastic syndrome) (HCC) 2) Herpes zoster with complication Zoster infection -Treated with aclcovir IV >transitioned to oral valacyclovir 1g PO TID per ID on 01/15 -lesions scabbed over MDS-EB2 -C2D29 AZA for MDS-EB2. Bone marrow tomorrow discharge for treatment planning. She is a tra nsplant candidate and will continue AZA until donor is found. No current donors available ho wever testing niece. Febrile neutropenia ANC 410. Afebrile. Infectious source likely zoster. -Blood cultures 01/14 NGTD.Switch cefepime to levaquin. LUE pain US for DVT. Pull PICC Discharge planning: Discharge tomorrow after bone marrow biopsy. Please see the GISSEL/resident documentation from today for the details regarding the assessme nt and plan. Sejal De La Torre, DO Hematology/Oncology & Bone Marrow Transplantation Program ###################################################################### Interval history/overnight events: There were no major overnight events. Today, patient reports feeling well. The rash is not spreading and she continues to feel better. Review of systems: Review of systems was otherwise unremarkable. Physical examination: Alert, oriented, no acute distress. Oropharynx unremarkable. RRR CTAB Soft, NT, ND, NABS Nonfocal neuro exam Left arm pain related to PICC line Large round vesicular lesion on right chest, crusted Central catheter intact Attending physician s total time is 35 minutes, >50% spent counseling and coordination of care. [facility] DEPARTMENT: [id number]- [facility] FACULTY MPDre Place of Service:- Inpatient Date of Service: 01/16/2019 Suggested CPT: 50221 - Subsequent, Detailed/High complex 35 min ###################################################################### Vitals: Systolic (24hrs), Av , Min:122 , Max:137 Diastolic (24hrs), Av, Min:57, Max:80 Pulse Av Min: 77 Max: 89 Temp Av C (98.6 F) Min: 36.3 C (97.3 F) Max: 37.3 C (99.1 F) Resp Av Min: 18 Max: 18 SpO2 Av.3 % Min: 95 % Max: 98 % Intake/Output Summary (Last 24 hours) at 01/16/2019 1530 Last data filed at 01/16/2019 1504 Gross per 24 hour Intake 4322.5 ml Output 2360 ml Net 1962.5 ml Current medications: Current Facility-Administered Medications Medication Dose Route Frequency Last Rate escitalopram oxalate (LEXAPRO) tablet 10 mg 10 mg oral DAILY levoFLOXacin (LEVAQUIN) tablet 500 mg 500 mg oral DAILY valACYclovir (VALTREX) tablet 1,000 mg 1 g oral TID voriconazole (VFEND) tablet 250 mg 250 mg oral BID AC Allergies: Allergies Allergen Reactions Sulfa (Sulfonamide Antibiotics) Hives Laboratory or other studies: Recent Labs 01/14/19 1227 01/15/19 0420 01/16/19 0405 WBC 0.93* 1.15* 1.29* HB 8.1* 7.5* 7.4* HCT 25.4* 22.9* 23.5* PLT 411* 453* 486* NEUTROPERC 50.4 40.8* 31.7* LYMPHPERC 36.6 51.3* 58.9* MONOPERC 10.8* 6.1 7.0 BASOPERC 1.1 0.9 0.8 EOSPERC 0.0* 0.9* 0.8* Recent Labs 01/14/19 1227 01/15/19 0420 01/16/19 0405 NA 138 141 143 K 3.8 3.0* 3.4 CL 105 107 111* BICARB 26 26 25 BUN 5* 6 7 CR 0.44* 0.50* 0.60 CA 8.7 8.3* 8.2* MG 1.8 2.1 2.1 PO4 2.9 3.2 3.2 AST 29 12 14 ALT 28 27 24 TBILI 0.4 0.3 0.2* AP 87 81 80 ALB 1.9* 1.8* 1.8* TP 6.2* 5.6* 5.4* CULTURE RESULT (no units) Date Value 01/14/2019 No growth to date. ajorge, Best Mercer PA-C ,[facility] - 01/15/2019 10:21 AM PDT Daily GISSEL Note - Chemotherapy Admit [facility] Attending: Nathan Beebe DO [facility] Physician: Nathan De La Torre DO Local Oncologist: MD Hua PCP: LACY Perez Date of Admission: 01/15/19 Hematologic Malignancy: AML Reason for admission: VZV 24 Hour Events/Current Daily Plan: -AML: s/p C#2 Vidaza OP. -Pancytopenia/Anemia/Thrombocytopenia: Standard transfusion parameters. No blood product rivas pport indicated today. -NTP fever: likely secondary to VZV, noted 01/15/19, Workup including CXR NTD -BCx Final PENDING -Cefepime (01/15/19) -VZV: continue Acyclovir 10mg/kg IV Q8 hours -VZV DFA PENDING -Lytes: standard repletion parameters. No replacements today. Subjective: Feeling well - having pain on right chest, no major changes otherwise - no vis ual changes, felt SOB with fever Objective: Last Vitals: BP 120/59 (BP Location: Right upper arm, Patient Position: Sitting;Lying on ba ck) | Pulse 83 | Temp 37 C (98.6 F) (Oral) | Resp 18 | Ht 1.575 m (5' 2") | Wt 73.8 kg (162 lb 11.2 oz) | SpO2 96% | BMI 29.76 kg/m | BSA 1.8 m 24 Hour Vital Min/Max: Systolic (24hrs), Av , Min:105 , Max:132 Diastolic (24hrs), Av, Min:55, Max:64 Pulse Min: 83 Max: 105 Temp Min: 37 C (98.6 F) Max: 39.1 C (102.4 F) Resp Min: 18 Max: 28 SpO2 Min: 94 % Max: 100 % Intake/Output Summary (Last 24 hours) at 01/15/2019 1021 Last data filed at 01/15/2019 1000 Gross per 24 hour Intake 3884.25 ml Output 2265 ml Net 1619.25 ml Physical Exam: General: This is a female in no acute distress. HEENT: PERRL. Sclerae anicteric. Mucosa pink and moist without erythema or exudate. Skin: Right chest wall - vesicular lesion with erythema and serous discharge; well demarca martha Chest: Lungs clear to auscultation bilat. CV: RRR, no murmurs. Abdomen: S/NT/ND with NABS. No HSM appreciated. Extremities: Pulses strong and equal bilaterally. No c/c/e. NeuroPsych: Alert and oriented x 3. Grossly nonfocal exam. CVC: Left PICC CDI Laboratory Results: Recent Labs 12/02/18 1322 01/14/19 1227 01/15/19 0420 NA 134* 138 141 K 3.5 3.8 3.0* CL 100 105 107 BICARB 31 26 26 BUN 22* 5* 6 CR 0.72 0.44* 0.50* GLU 91 90 82 CA 9.2 8.7 8.3* AST 12 29 12 ALT 23 28 27 AP 105* 87 81 TBILI 0.4 0.4 0.3 TP 7.8 6.2* 5.6* ALB 3.9 1.9* 1.8* Recent Labs 12/02/18 1322 01/14/19 1227 01/15/19 0420 WBC 3.72 0.93* 1.15* RBC 4.35 2.73* 2.47* HB 13.5 8.1* 7.5* HCT 38.8 25.4* 22.9* PLT 216 411* 453* NEUTROPERC 50.2 50.4 40.8* LYMPHPERC 44.4* 36.6 51.3* MONOPERC 4.8 10.8* 6.1 BASOPERC 0.3 1.1 0.9 EOSPERC 0.0* 0.0* 0.9* Meds: Reviewed on rounds, see current MAR for medication list SUMMARY OF PATIENT'S HOSPITALIZATION History of Present Illness: (from H&P) Analy Hua a 53 year old female whois presenting today as consult for bone ma rrow transplantation as curative strategy for 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 The patient burgos s a past medical history that includesuterine fibroids and fibroid removal from the left b reast.Her hematogical history dates back to 2016when she noted progressive fatigue. 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 She was working 6 days per week and thought she was working too hard.[facility] give herself some time to feel better.She had been to various phys icians in [place] for fatigue without answers. In January 15, she developedfevers up to 104. She wastested for lyme disease, rheumatological conditions which were all negative. She began to notice that her counts were dropping.She relocated [place] [facility] [place] to live with her niecein 06/2018.She sawalocal PA in [facility] 07/2018 Arturo who did further testing. Labs on10/07/18showed normal chemistries, Bilirubin 1.4, hepatitis negative, ESR elevated at 174 with RA, RIOS C3/C 4 negative. CBC showed WBC 2.4, Hb 10.8, Plt 166K, ANC 1529. She was referred to Dr. Clive grace(medical oncology)on 10/29. Bone marrow biopsywas performed on11/05showing hyperc ellular marrow (70%) with 18% by morphology and 26% on flow. Mild erythroid hyperplasia and megakaryocytic atypia. Blast immunophenotype was positive for CD33, CD45 dim, CD34, CD15, CD 117, CD 11c, MPO. 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 Cytogenetics w ere normal. MDS and AML FISH panel was negative. NGS panel was negative for FLT3, NPM1, CEBP A, c-KIT, IDH1, IDH2, TP53. She started Vidaza locally on December 24 however developed a rash to the SQ injection and missed D3, dexamethasone was added for D4-D7. She missed D7 of C1. She has since completed 2 cycles of Vidaza, and is scheduled to have a bone marrow biopsy f or disease staging at [facility] in the upcoming weeks. Hospitalization History: Hematology: #Hematologic Malignancy: AML Pertinent Diagnostics: -BM Bx: 11/05/18 showed a hypercellular marrow with ~18% blasts by morphology and 26% by fl ow. -LP: N/A Treatment -Chemotherapy regimen: Vidaza C#2 7/ -Azacitidine 75mg/m2 subQ Q7 days Patient is a candidate for transplant based on Dx and prognostic feature. Request [facility] approval for typing. #Leukopenia, Anemia, Thrombocytopenia: -See supportive care #Supportive Care: Growth factor: patient will receive Neulasta 24 hours after completion of chemotherapy Labs: Continue to check CBC daily Transfusion parameters: -Transfuse PRBCs for HCT <21% if asymptomatic OR <24% if symptomatic -Transfuse PPH for platelet count <10,000 sooner PRN s/s bleeding. Cardiovascular: No acute issues Pulmonary: No acute issues GI: No acute issues /Renal: No acute issues Infectious Disease: #Herpes Zoster: Right chest, continue precautions -continue Acyclovir 10mg/kg IV Q8 hours #NTP fever: likely secondary to VZV, noted 01/15/19, Workup including CXR NTD -BCx Final PENDING -Cefepime (01/15/19) #Prophylaxis: Bacterial: Cefepime. Fungal: Vori Viral: HD Acyclovir IV PCP: N/A Fluid/Nutrition/Lytes: #Nutrition: Current diet -- Regular No Janee's yogurt or Kefir. #Fluid: NS at 75 mL/hr #Lytes: -Continue to check chemistries daily -Replace per supportive care protocol. Disposition: TBD Best Calabrese PA-C,[facility] [address] [facility] Mailcode: [facility] [place] [address] Associated attestation - Sejal De La Torre DO - 01/16/2019 7:45 AM PDTHematologic Malign ancies/Bone Marrow Transplant Inpatient Attending Progress Note: 01/15/2019 I rounded today in conjunction with the Advanced Practice Provider. I saw the patient, reviewed the history and relevant studies, and developed an assessment a nd plan. Subjective: Feeling well. Lesions crusted and no new lesions. AF Objective: vitals reviewed and stable. Alert female, NAD. Large crusted herpetic lesion on right chest wall. No new lesions. Lungs CTA BL, abd soft. No edema. PICC line C/D/I Please see the Advanced Practice Provider documentation from today for the details regardin g assessment and plan. Analy Hopper is a 53 y.o. female with the following hospitalization problem list: Patients Hospital Problem List: Active Hospital Problems 1) MDS (myelodysplastic syndrome) (HCC) 2) Herpes zoster with complication Plans today include: -C2D28 AZA for MDS-EB2. Bone marrow prior to discharge for treatment planning. She is a tra nsplant candidate and will continue AZA until donor is found. No current donors available ho wever testing niece. Febrile neutropenia -continue supportive care. Cx NGTD. Likely related to zoster. Zoster infection-continue aclcovir IV with plan to transition to oral valacyclovir 1g PO TI D per ID Contunue supportive care Sejal De La Torre DO BMT/CHM Attending documented in this encounter H&P Notes Aniya Banks MD - 01/14/2019 2:21 PM PDT Hematologic Malignancies Admission History and Physical: Attending:Aniya Bansk MD CHM Physician: Sejal De La Torre DO Local Oncologist: Tripp Sequeira MD Date of Admission:01/14/19 Hematologic Malignancy:MDS --> AML vs primary AML Reason for admission: Herpes Zoster Disease History: Analy Hopper is a 53 year old female who is presenting today as consult for bone harini ow transplantation as curative strategy for high risk MDS vs evolving AML. The patient has a past medical history that includes uterine fibroids and fibroid removal from the left breas t. Her hematogical history dates back to 2015 when she noted progressive fatigue. 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 She was working 6 days per week and thought she was working too hard. She left her job in August 2017 to give herself some time to feel better. She had been to various physicians in [place] for fatigue without answers. In January 15, she developed fevers up to 104. She was tested for lyme disease, rheumatological c onditions which were all negative. She began to notice that her counts were dropping. She re located to [facility] from [place] to live with her niece in 06/2018. She saw a local PA in [facility] 07/2018 Meredith Sanchez who did further testing. [...] was added for D4-D7. She missed D7 of C1. She has since c ompleted 2 cycles of Vidaza, and is scheduled to have a bone marrow biopsy for disease linnea ng at [facility] in the upcoming weeks. Subjective: Analy is admitted currently for suspected herpes zoster outbreak. She states that a littl e over a week ago, she noticed a small bump on her chest with surrounding erythema. She ini tially thought this was a mosquito bite, however over the next few days the are of erythema grew rapidly and developed small blisters. In addition, she stated having fevers to >103-10 4 at home. She presented to the ED, and was admitted to an OSH with concern for herpes zost er with overlying cellulitis. She was started on IV acyclovir as well as IV cefepime and va ncomycin for the cellulitis, and transferred to [facility]. Currently Analy says she is doing be tter. The lesion on her chest is still extremely painful, but she says the vessicles have n ow crusted over, and the erythema is fading. The lesions on her thigh look almost completel y gone. She continues to spike fevers followed by drenching sweats, but says that the fever s are not as high. Her appetite is low, but denies N/V. Denies any lesions in her mouth / on lips, no cough, no diarrhea. Has had chicken pox, never shingles before. Last Vidaza tr eatment December 29. She says she was scheduled to have a bone marrow biopsy at [facility] in early January to restage her disease. Review of Systems: General: No constitutional symptoms of chills, weight loss (+) intermittent fevers with as sociated sweats, (+) fatigue Eyes: No double vision, eye pain, eye irritation, discharge, blurred vision or light sensi tivity. Ears, Nose and Throat: No ringing in the ears, ear earache, nosebleeds, nasal congestion, difficulty swallowing, hoarseness or sore throat. Respiratory: No shortness of breath, cough, chest discomfort or wheezing. Musculoskeletal: No joint pain, swelling, stiffness, back pain, arthritis, muscle aches, m uscle cramps Cardiovascular: No chest pain, skipping beats, lightheadedness, near fainting or fainting, palpitations Gastrointestinal: No vomiting, nausea, constipation, gas, abdominal pain, hemorrhoids, julia rrhea (+) poor appetite Genitourinary: No urinary frequency, blood in urine, difficulty in urination, painful urin ation, incontinence, urinary urgency Neurologic: No unusual headaches, poor balance, numbness, tingling, tremors, memory loss, disturbances in coordination Skin: No changes in skin color, dryness, flushing (+) lesion on chest wall as per HPI Psychological: No abnormal anxiety, depression, thoughts of suicide or hallucinations. Heme/Lymphatic: No abnormal bleeding or enlarged lymph nodes. Allergic: No seasonal allergies, hives Past Medical History: Diagnosis Date Fibroid HTN (hypertension) Miscarriage Social History: She lives in a travel trailer at her niece's house. Her niece has 5 dogs, 2 chicken, 3 cats and 1 ferret. She is applying for disability and not currently working. Her niece owns a [employer] and she helps out as needed Family History Problem Relation Heart Attack Mother Melanoma Father Liver Disease Father Alcohol abuse Father Stroke Sister Dementia Sister Diabetes Sister Brain cancer Brother Alcohol abuse Brother Brain cancer Aunt Medications, Outpatient Acyclovir Ciprofloxacin Fluconazole Escitalopram HCTZ Allergies Allergen Reactions Sulfa (Sulfonamide Antibiotics) Hives Physical Exam Last Vitals: BP 113/55 (BP Location: Right upper arm, Patient Position: Sitting;Lying on ba ck) | Pulse 93 | Temp 37.2 C (99 F) (Oral) | Resp (!) 28 | Ht 1.575 m (5' 2") | Wt 73.8 kg (162 lb 11.2 oz) | SpO2 96% | BMI 29.76 kg/m | BSA 1.8 m Gen: sitting propped up in bed, NAD HEENT: no oral lesions Lungs: CTA bilaterally CVS: RRR Abd: soft, NT no HSM appreciated Skin: + ~5cm lesion present on R chest wall, center crusted over, edges with tiny blisters, fading surrounding erythema. + three ~1cm faintly erythematous macular lesions on R leg, r eceeded from prior demarcation by pen Lymph: no cervical, supraclavicular adenopathy Neuro: CN II-XII grossly intact Ext: no pitting edema Labs: CBC with diff last 72 hours (or 3 results) - Refreshable Recent Labs 01/14/19 1227 WBC 0.93* HB 8.1* HCT 25.4* PLT 411* NEUTROPERC 50.4 LYMPHPERC 36.6 MONOPERC 10.8* BASOPERC 1.1 EOSPERC 0.0* Lab Results Component Value Date NA 138 01/14/2019 K 3.8 01/14/2019 CL 105 01/14/2019 BICARB 26 01/14/2019 BUN 5 01/14/2019 EGFRAFRICAN >60 01/14/2019 EGFRNONAFR >60 01/14/2019 CR 0.44 01/14/2019 GLU 90 01/14/2019 CA 8.7 01/14/2019 ANIONGAP 7 01/14/2019 ANIONALBCOR 12 01/14/2019 Lab Results Component Value Date AST 29 01/14/2019 ALT 28 01/14/2019 TBILI 0.4 01/14/2019 AP 87 01/14/2019 TP 6.2 01/14/2019 ALB 1.9 01/14/2019 Assessment and Plan: - AML: Possibly arisen out of MDS, however her initial BMBx obtained 11/05/18 showed a hype rcellular marrow with ~18% blasts by morphology and 26% by flow. Cytogenetics WNL and MDS / AML FISH panel were negative. No mutations in NGS panel. She was started on treatment wit h azacitadine via Dr. Sequeira, she has now completed two cycles. Most recent azacitadin e injection on 12/29. She has been seen at [facility] for transplant consult by Wil Chase, a re-st aging bone marrow biopsy was scheduled for early January. CBC reviewed today, she is current ly pancytopenic. Will need to await marrow recovery prior to obtaining BMBx. - Herpes Zoster: Present on chest wall possibly thigh, erythematous area on abdomen more l ikely site of prior azacitadine injection. She has been seen by transplant ID< who concurs that her rash is most consistent with herpes zoster. She has been started on IV acyclovir, will continue until all areas of rash have crusted over. They will continue to follow, will continue IV acyclovir for now. - Acyclovir 10 mg/kg IV every 8 hours - Neutropenic fever: ANC today 480. Although fevers most likely secondary to zoster, will cover with IV cefepime given neutropenia. Per ID ok to discontinue vancomycin. - Cefepime (01/10 --> - Pancytopenia: Secondary to chemotherapy. Standard transfusion parameters as below: - transfuse 1 unit platelet for platelets < 10k - transfuse 1 unit PRBC for hct < 21k ID Prophylaxis: Viral: On IV acyclovir as above Bacterial: On cefepime as above Fungal: Will start voriconazole PJP: not indicated - Anticipate 3-4 day hospital stay Aniya Banks MD documented in this encounter Procedure Notes Best Calabrese PA-C,[facility] - 01/17/2019 3:35 PM PDTAssociated Order(s): BIOPSY AND ASPIRATION OF BONE MARROWProcedure(s): BIOPSY AND ASPIRATION OF BONE MARROWProcedure: Bone marrow aspi rate and biopsy w/medications for anxiolysis Equipment Description: OnControl Front Edger Serial ID: [id number] Indications: 53 y.o. 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 Team Pause: At 1300, prior to the beginning of the procedure, the team paused to verify the patient s identity, the procedure to be performed (in accordance with the consent,) and the correct s tai/site. The patient was positioned appropriately. All relevant images and results were pro perly labeled and displayed. We addressed antibiotic prophylaxis and fluids for irrigation a s applicable to this patient. Any safety precautions were addressed. Best Calabrese PA-C, [facility] and Colten BUTLER Description: Written consent for bone marrow aspirate and biopsy was obtained from the patient following a brief discussion regarding the risks and benefits of the procedure. She was then premedic ated for anxiolysis with Ativan 1mg PO. The skin over her left posterior iliac crest was patricia ansed with betadine and draped in a sterile manner. Xylocaine 1% was used for local anesthes ia. A scalpel was used to enlarge the insertion site. An OnControl 4 inch aspirate needle w as inserted with the OnCLumiata courtesy van driver. The first aspirate was noted to have spicules and was submitted for morphology studies. A second aspirate was obtained in a heparinized syringe and submitted for FISH as per previous abnormalities, flow cytometry and cytogenetics. A to jay of 15 mL of bone marrow was aspirated. The OnControl 4 inch needle was advanced using the OnCLumiata courtesy van driver. A core biopsy measurin g approximately 1 cm was obtained and submitted for morphology studies. [...] within the next 24 to 48 hours. Best Calabrese PA-C, [facility] [address] [facility] Mailcode: [id number] [place] [address] documented in thi s encounter Consult Notes Ruba Olivia MD - 01/17/2019 3:06 PM PDTID Non-Visit Note Pt afebrile since 01/14. She remains neutropenic. She has been appropriately de-escalated to levofloxacin and is now on treatment-dose valacyclovir. Plan is for discharge today. Recomm end continuing treatment dose valacyclovir until R chest wall lesions completely healed so w ould discharge to complete an additional 7d treatment then transition to prophy dose valacyc lovir at 500mg PO BID. Pt being evaluated for transplant. Discussed with Best Calabrese PA-C. Will sign off. Please page transplant ID with any further q uestions. Ruba Olivia MD Infectious Diseases Ruba Olivia MD - 01/15/2019 4:27 PM PDTFormatting of this note might be different fr om the original. S: No acute events. Pt has a BURGOS today. No new skin lesions. Her R chest wall rash is improv ing. ROS: as above Medications Continuous Medication Dose/Rate, Route, Frequency Last Action sodium chloride 0.9 % (NS) IV infusion 75 mL/hr, 75 mL/hr, IV, CONTINUOUS New Ba/20 0 547 Scheduled Medication Dose/Rate, Route, Frequency Last Action acyclovir (ZOVIRAX) 600 mg in NaCl 0.9 % (NS) IV 10 mg/kg, IV, Q8H Ordered ceFEPIme (MAXIPIME) injection 2 g 2 g, IV, Q8H Given: 01/15 1414 escitalopram oxalate (LEXAPRO) tablet 10 mg 10 mg, oral, DAILY Given: 01/15 0843 voriconazole (VFEND) tablet 250 mg 250 mg, oral, BID AC Ordered PRN Medication Dose/Rate, Route, Frequency Last Action acetaminophen (TYLENOL) tablet 325-650 mg 650 mg, oral, Q4H PRN Given: 01/15 1417 alteplase (CATHFLO ACTIVASE) injection 2 mg 2 mg, IK, PRN Ordered aluminum-magnesium hydroxide-simethicone (MAALOX; MYLANTA) 200-200-20 mg/5 mL suspension 3 0 mL 30 mL, oral, Q3H PRN Ordered tpuolmdqmuXDPIE-evhljcyes-KXJSRJ (SPECIAL MOUTHWASH) suspension (compound) 10-15 mL 10-15 mL, oral, Q1H PRN Ordered glycerin-mineral oil (LUBRIDERM SENSITIVE LANOLIN FREE) lotion No Dose/Rate, top, Q2H PRN Ordered loperamide (IMODIUM) capsule 2 mg 2 mg, oral, PRN Ordered magnesium sulfate in water IV (RTU) 4 g 4 g, IV, PRN Ordered magnesium sulfate IV 8 g 8 g, IV, PRN Ordered menthol (sugar free) (COUGH DROP) lozenge 5 mg 1 lozenge, oral, Q1H PRN Ordered nystatin-zinc oxide-lidocaine (NDX) ointment (compound) No Dose/Rate, top, Q1H PRN Ordered ondansetron (ZOFRAN) tablet 8 mg 8 mg, oral, Q12H PRN Ordered potassium chloride IV (central line) 40 mEq 40 mEq, IV, PRN Ordered potassium chloride IV (central line) 60 mEq 60 mEq, IV, PRN Ordered potassium chloride SR (K-DUR) tablet 40 mEq 40 mEq, oral, PRN Given: 01/15 0843 potassium phosphate IV (CENTRAL LINE) 30 mmol 30 mmol, IV, PRN Ordered potassium phosphate IV (CENTRAL LINE) 40 mmol 40 mmol, IV, PRN Ordered prochlorperazine (COMPAZINE) tablet 5-10 mg 5-10 mg, oral, Q4H PRN Ordered ramelteon (ROZEREM) tablet 8 mg 8 mg, oral, HS PRN Ordered saliva substitute (MOUTH KOTE) spray 1 spray 1 spray, oral, Q1H PRN Ordered senna-docusate (SENOKOT S) 8.6-50 mg 1-2 tablet 1-2 tablet, oral, Q12H PRN Ordered sodium phosphate IV 30 mmol 30 mmol, IV, PRN Ordered sodium phosphate IV 40 mmol 40 mmol, IV, PRN Ordered Last 24 hour min/max Temp: 36.9 C (98.4 F) Temp Min: 36.9 C (98.4 F) Max: 37.3 C (99.1 F) Pulse: 85 Pulse Min: 83 Max: 95 Resp: 18 Resp Min: 18 Max: 22 BP: 118/56 BP Min: 112/58 Max: 124/64 SpO2: 96 % SpO2 Min: 95 % Max: 96 % Body mass index is 29.76 kg/m. Gen: NAD, in bed Skin: R chest wall rash mostly crusted with scattered open areas of skin, no purulent drain age Lungs/chest: ttp around R chest wall rash without any fluctuance palpable HEENT: nl sclera, MMM CBC with diff last 72 hours (or 3 results) - Refreshable Recent Labs 01/14/19 1227 01/15/19 0420 WBC 0.93* 1.15* HB 8.1* 7.5* HCT 25.4* 22.9* PLT 411* 453* NEUTROPERC 50.4 40.8* LYMPHPERC 36.6 51.3* MONOPERC 10.8* 6.1 BASOPERC 1.1 0.9 EOSPERC 0.0* 0.9* Chemistries: Last 72 Hours (or 3 results) - Refreshable Recent Labs 01/14/19 1227 01/15/19 0420 NA 138 141 K 3.8 3.0* CL 105 107 BICARB 26 26 BUN 5* 6 EGFRAFRICAN >60 >60 CR 0.44* 0.50* GLU 90 82 CA 8.7 8.3* MG 1.8 2.1 PO4 2.9 3.2 Liver Tests: Last 72 hours (or 3 results) Recent Labs 01/14/19 1227 01/15/19 0420 AST 29 12 ALT 28 27 TBILI 0.4 0.3 AP 87 81 ALB 1.9* 1.8* TP 6.2* 5.6* BCx 01/14 pending OSH BCx 01/10 NGTD OSH VZV DFA pending - results expected in 2-3d Assessment: 53yo woman with MDS transformed to AML vs primary AML being treated with azacit idine (last dose 12/29) who was transferred from [place] for further management of herpes zoster. On transfer here, no evidence of disseminated zoster on exam. No new lesions since . She has received approx 5d of IV acyclovir in total and lesions nearly completely c rusted. I suspect that her reported RLQ skin findings on presentation may have been related to an injection site reaction from azacitidine rather than herpes zoster. Also has febrile neutropenia with improved temperature curve. Recommendations: 1. Transition IV acyclovir to valacyclovir 1g PO TID to be continued until all R chest wall lesions completely crusted then recommend transition to valacyclovir 500mg PO BID for proph y 2. Follow-up BCx results until finalized 3. Continue cefepime 2g Q8h Discussed with primary service. Will follow. Ruba Olivia MD Infectious Diseases uRuba estes MD - 01/14/2019 5:11 PM PDTAssociated Order(s): IP CONSULT TO TRANSPLANT INFECTIOUS DISEASE Reason for consult: herpes zoster Consulted by: Dr. Banks (heme-onc) HPI: Ms. Hopper is a 53yo woman with MDS transformed to AML vs primary AML being treated w ith azacitidine (last dose 12/29) who was transferred from [place] for further management of herpes zoster. She reports that about a week ago, she developed a red bump over her R upp er chest and another on her R lower abdomen that she thought were bug bites. The areas of re dness increased quickly and she then developed blisters and pain over the area of redness on her R chest. She then developed fevers leading to presentation to ED. She also notes the de velopment of 3 additional bumps on her R leg that were painful but did not blister. She was treated with IV acyclovir, vancomycin and cefepime. Her RLE lesions as well as the redness o jaxon her R lower abdomen have improved. She denies BURGOS, vision changes, cough. She has noted s ome DOUGLASS during admission. She reports adherence to outpatient prophylactic acyclovir, cipro and fluconazole. ROS: A complete ROS was obtained and is otherwise negative except as noted above Past Medical History: Diagnosis Date Fibroid HTN (hypertension) Miscarriage Past Surgical History Procedure Laterality Date Hysterectomy 2007 Breast fibroid 1980 fibroid removal left breast Medications Continuous Medication Dose/Rate, Route, Frequency Last Action sodium chloride 0.9 % (NS) IV infusion 75 mL/hr, 75 mL/hr, IV, CONTINUOUS New Ba/19 1 419 Scheduled Medication Dose/Rate, Route, Frequency Last Action acyclovir (ZOVIRAX) 650 mg in NaCl 0.9 % (NS) IV 0 mg, 0 mL/hr, IV, Q8H Stopped: 01/14 153 5 ceFEPIme (MAXIPIME) injection 2 g 2 g, IV, Q8H Given: 01/14 1504 escitalopram oxalate (LEXAPRO) tablet 10 mg 10 mg, oral, DAILY Given: 01/14 1610 voriconazole (VFEND) tablet 250 mg 250 mg, oral, BID AC Ordered voriconazole (VFEND) tablet 400 mg 400 mg, oral, BID AC Given: 01/14 1610 PRN Medication Dose/Rate, Route, Frequency Last Action acetaminophen (TYLENOL) tablet 325-650 mg 650 mg, oral, Q4H PRN Given: 01/14 1237 alteplase (CATHFLO ACTIVASE) injection 2 mg 2 mg, IK, PRN Ordered aluminum-magnesium hydroxide-simethicone (MAALOX; MYLANTA) 200-200-20 mg/5 mL suspension 3 0 mL 30 mL, oral, Q3H PRN Ordered udofrkljqwYOGDG-maifkzkjk-WMNVXI (SPECIAL MOUTHWASH) suspension (compound) 10-15 mL 10-15 mL, oral, Q1H PRN Ordered glycerin-mineral oil (LUBRIDERM SENSITIVE LANOLIN FREE) lotion No Dose/Rate, top, Q2H PRN Ordered loperamide (IMODIUM) capsule 2 mg 2 mg, oral, PRN Ordered magnesium sulfate in water IV (RTU) 4 g 4 g, IV, PRN Ordered magnesium sulfate IV 8 g 8 g, IV, PRN Ordered menthol (sugar free) (COUGH DROP) lozenge 5 mg 1 lozenge, oral, Q1H PRN Ordered nystatin-zinc oxide-lidocaine (NDX) ointment (compound) No Dose/Rate, top, Q1H PRN Ordered ondansetron (ZOFRAN) tablet 8 mg 8 mg, oral, Q12H PRN Ordered potassium chloride IV (central line) 40 mEq 40 mEq, IV, PRN Ordered potassium chloride IV (central line) 60 mEq 60 mEq, IV, PRN Ordered potassium chloride SR (K-DUR) tablet 40 mEq 40 mEq, oral, PRN Ordered potassium phosphate IV (CENTRAL LINE) 30 mmol 30 mmol, IV, PRN Ordered potassium phosphate IV (CENTRAL LINE) 40 mmol 40 mmol, IV, PRN Ordered prochlorperazine (COMPAZINE) tablet 5-10 mg 5-10 mg, oral, Q4H PRN Ordered ramelteon (ROZEREM) tablet 8 mg 8 mg, oral, HS PRN Ordered saliva substitute (MOUTH KOTE) spray 1 spray 1 spray, oral, Q1H PRN Ordered senna-docusate (SENOKOT S) 8.6-50 mg 1-2 tablet 1-2 tablet, oral, Q12H PRN Ordered sodium phosphate IV 30 mmol 30 mmol, IV, PRN Ordered sodium phosphate IV 40 mmol 40 mmol, IV, PRN Ordered Allergies Allergen Reactions Sulfa (Sulfonamide Antibiotics) Hives History Social History Marital Status: Single Spouse Name: Number of Children: Years of Education: Occupational History Social History Main Topics Tobacco Use: Quit -- 1.5 packs/day for 28 years Quit date: 06/29/2004 Alcohol Use: Not Currently very occasionally Drug Use: Sexually Active: Other Topics Concern Social History Narrative Lives with niece in [facility] in trailer home. She has exposure to cats, dogs at home. +ca t scratch to her upper chest ~2 weeks ago but no rash, skin redness or swollen LNs following this and the scratch has healed. No recent travel aside from moving to [place] from [place] earlier this year. No gardening or outdoor activities. Family History Problem Relation Heart Attack Mother Melanoma Father Liver Disease Father Alcohol abuse Father Stroke Sister Dementia Sister Diabetes Sister Brain cancer Brother Alcohol abuse Brother Brain cancer Aunt Last 24 hour min/max Temp: 37.2 C (99 F) Temp Min: 37.2 C (99 F) Max: 39.1 C (102.4 F) Pulse: 93 Pulse Min: 93 Max: 105 Resp: 28 Resp Min: 24 Max: 28 BP: 113/55 BP Min: 105/60 Max: 132/59 SpO2: 96 % SpO2 Min: 94 % Max: 100 % Body mass index is 29.76 kg/m. Gen: NAD, in bed Skin: several cm patch of drying vesicles and crusting over R upper chest with minimal surr ounding erythema; no erythema or vesicles over remainder of trunk, face/scalp or extremities HEENT: PERRL nl sclera, op clear, MMM CV: RRR, no m/g/r Lungs/chest: CTAB, respirations nonlabored Abd: +BS, soft, nt/nd, firm nontender nodule palpable in RLQ subcutaneous tissue Ext: wwp Neuro: grossly nonfocal, moves all 4 extremities Mental status: awake, alert CBC with diff last 72 hours (or 3 results) - Refreshable Recent Labs 01/14/19 1227 WBC 0.93* HB 8.1* HCT 25.4* PLT 411* NEUTROPERC 50.4 LYMPHPERC 36.6 MONOPERC 10.8* BASOPERC 1.1 EOSPERC 0.0* Chemistries: Last 72 Hours (or 3 results) - Refreshable Recent Labs 01/14/19 1227 NA 138 K 3.8 CL 105 BICARB 26 BUN 5* EGFRAFRICAN >60 CR 0.44* GLU 90 CA 8.7 MG 1.8 PO4 2.9 Liver Tests: Last 72 hours (or 3 results) Recent Labs 01/14/19 1227 AST 29 ALT 28 TBILI 0.4 AP 87 ALB 1.9* TP 6.2* BCx 01/14 NGTD Outside labs: 01/13 WBC 1.0 01/10 WBC 2.0, hgb 10.9, plt 345 Cr 0.55 AST 10, ALT 12 Tbili 0.7 Alk phos 74 VZV DFA pending VZV IgG + HSV-1 and 2 PCR neg CXR 01/14: Left upper extremity PICC tip in the mid superior vena cava, approximately 5 cm above the c avoatrial junction. Right greater than left trace pleural effusions with minimal bibasilar atelectasis. Lungs o therwise clear with no evidence for pneumonia. OSH CT chest 01/10/19: Moderate to markedly severe cellulitis involving the anterior and superior chest wall to th e R of the midline. No apparent complications. Indeterminate 6.7mm nodule arising from the superior segment of the RLL. A 6mo follow-up ex amination is recommended. 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 Her current exam is not consistent with disseminated zoster and vesicular lesions pr esent over R chest wall are in process of crusting. I suspect that her RLQ skin findings may have been related to an injection site reaction from azacitidine rather than herpes zoster but in any case there is no cellulitis or evidence of zoster at the site presently. No evide nce of pna and pt satting well on room air so low suspicion for pulmonary involvement. Recommendations: 1. Continue IV acyclovir 10mg/kg Q8h; continue therapy until all lesions fully crusted but will plan to transition to oral therapy once we can verify no new lesions are developing 2. Continue cefepime 2g Q8h for febrile neutropenia 3. Dc vancomycin; monitor R chest wall closely and restart if any signs of worsening erythe ma 4. Will follow-up OSH BCx results and VZV DFA Discussed with primary service. Will follow. Ruba Olivia MD Infectious Diseases documented in this encounter Miscellaneous Notes Plan of Care - Coleman Duran RN - 01/17/2019 5:33 PM PDTNursing Discharge Note Discharge Date: 01/17/2019 Additional Discharge Information: Aanly was discharged after receiving a copy of her AVS a nd having all questions answered. The [facility] pharmacist delivered her medications to her bedsid e and provided additional education. She left with her niece via wheelchair. 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 -Herpes Zoster -She developed fevers leading to presentation to ED in [facility]. -IV acyclovir, vancomycin and cefepime. SAFETY Patient/Family Target: Analy will call appropriately and ambulate safely Progress to Target: Improving As evidenced by: -Ad cm -educated on importance of calling if begins to feel unsteady HYGIENE/INFECTION Patient/Family Target: Analy will be free of s/sx of infection Progress to Target: No Change As evidenced by: - New PICC placed 01/12, on 01/16 DVT located in left arm, PICC was pulled and now has PIV - 01/17 AM right arm started exhibiting signs of DVT, MD notified, ultrasound ordered, await ing ultrasound now - Came to hospital with herpes zoster and concern for sepsis, last fever work-up done 01/14 at 1200, afebrile this shift. RESTORATIVE MEASURES/SELF-MANAGEMENT Patient/Family Target: Analy will have adequate PO intake. Progress to Target: Improving As evidenced by: -Encouraging Analy to eat protein and continue to eat at least 3 times per day -Analy has started ordering meals with more protein -Only had 2 meals today -Continue to encourage intake NURSING ASSESSMENT & RECOMMENDATIONS FORWARD Nursing Assessment of Patient Stability Risk: Moderately unstable Recommendations Forward: - Herpes zoster lesions painful to the touch, crusted over, no ooz ing - Afebrile this shift - Ambulating and voiding well - Monitor left arm DVT site, red and swollen. ALSO monitor right arm for potential DVT, antoinette iting ultrasound to confirm. 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 -Herpes Zoster -She developed fevers leading to presentation to ED in [facility]. -IV acyclovir, vancomycin and cefepime. SAFETY Patient/Family Target: Analy will call appropriately and ambulate safely Progress to Target: Improving As evidenced by: -Ad cm -educated on importance of calling if begins to feel unsteady HYGIENE/INFECTION Patient/Family Target: Analy will be free of s/sx of infection Progress to Target: No Change As evidenced by: - New PICC placed 01/12, on 01/16 DVT located in left arm, PICC was pulled and now has PIV - Came to hospital with herpes zoster and concern for sepsis, last fever work-up done 01/14 at 1200, afebrile this shift. RESTORATIVE MEASURES/SELF-MANAGEMENT Patient/Family Target: Analy will have adequate PO intake. Progress to Target: Improving As evidenced by: -Encouraging Analy to eat protein and continue to eat at least 3 times per day -Analy has started ordering meals with more protein -Only had 2 meals today -Continue to encourage intake NURSING ASSESSMENT & RECOMMENDATIONS FORWARD Nursing Assessment of Patient Stability Risk: Moderately unstable Recommendations Forward: - Herpes zoster lesions painful to the touch, crusted over, no ooz ing - Afebrile this shift - Ambulating and voiding well Barriers to discharge: Neutropenia Plan of care andoff - Linus Cerna RN - 01/16/2019 12:45 AM PDTNursing Handoff Patient Daily Goal: To find out a plan (01/15/192135) [place] IP NURSE HANDOFF: [facility] events: -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 -Herpes Zoster -She developed fevers leading to presentation to ED in [facility]. -IV acyclovir, vancomycin and cefepime. SAFETY Patient/Family Target: Analy will call appropriately and ambulate safely Progress to Target: Improving As evidenced by: -Ad cm -educated on importance of calling if begins to feel unsteady HYGIENE/INFECTION Patient/Family Target: Analy will be free of s/sx of infection Progress to Target: No Change As evidenced by: - New PICC placed 01/12 - Came to hospital with herpes zoster and concern for sepsis, work-up done 01/14 at 1200, af ebrile this shift. -Would need workup, MD had mentioned only PICC cultures, with additional fever. NURSING ASSESSMENT & RECOMMENDATIONS FORWARD Nursing Assessment of Patient Stability Risk: Moderately unstable Recommendations Forward: - Herpes zoster lesions painful to the touch, crusted over, no ooz ing - Afebrile this shift - Ambulating and voiding well Barriers to discharge: Neutropenia Plan of care- biopsy done this stay? andleisa - Alisa Matt RN - 01/15/2019 5:44 PM PDTNursing Handoff Patient Daily Goal: Feel better! 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 -Herpes Zoster -She developed fevers leading to presentation to ED in [facility]. -IV acyclovir, vancomycin and cefepime. SAFETY Patient/Family Target: Analy will call appropriately and ambulate safely Progress to Target: Improving As evidenced by: -Ad cm -educated on importance of calling if begins to feel unsteady HYGIENE/INFECTION Patient/Family Target: Analy will be free of s/sx of infection Progress to Target: No Change As evidenced by: - New PICC placed 01/12 - Came to hospital with herpes zoster and concern for sepsis, work-up done 01/14 at 1200, af ebrile this shift. -Would need workup, MD had mentioned only PICC cultures, with additional fever. 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 -Herpes Zoster -She developed fevers leading to presentation to ED in [facility]. -IV acyclovir, vancomycin and cefepime. SAFETY Patient/Family Target: Analy will call appropriately and ambulate safely Progress to Target: Improving As evidenced by: - Calling appropriately for toileting - supervision d/t mild unsteadiness - gait improving, can be ad cm, educated on importance of calling if begins to feel unstea dy HYGIENE/INFECTION Patient/Family Target: Analy will be free of s/sx of infection Progress to Target: No Change As evidenced by: - New PICC placed - Came to hospital with sepsis, work-up done 01/14 at 1200, afebrile this shift - Extremely diaphoretic, frequent linen changes done NURSING ASSESSMENT & RECOMMENDATIONS FORWARD Nursing Assessment of Patient Stability Risk: Moderately unstable Recommendations Forward: - Herpes zoster lesions painful to the touch, crusted over, no ooz ing - Afebrile this shift - Ambulating and voiding well Barriers to discharge: Fevers Neutropenia documented in this enco unter Plan of Treatment + + +--------+ + + | Name | Type | Priori | Associated Diagnoses | Order Schedule | | | | ty | | | + + +--------+ + + | X-RAY CHEST 2 VIEW | Imaging | Routin | | As Needed for 1 | | | | e | | Occurrences starting | | | | | | 01/14/2019 | + + +--------+ + + | CULTURE, URINE BACTI | Lab | Routin | | As Needed for 1 | | | | e | | Occurrences starting | | | | | | 01/14/2019 | + + +--------+ + + | CULTURE, SPUTUM | Lab | Routin | | As Needed for 1 | | | | e | | Occurrences starting | | | | | | 01/14/2019 | + + +--------+ + + | RBC MORPHOLOGY | Lab - | Routin | | 01/14/2019 until | | | [facility] | e | | discontinued, 1 | | | Performable | | | completed | | | s | | | | + + +--------+ + + | RBC MORPHOLOGY | Lab - | Routin | | 01/15/2019 until | | | [facility] | e | | discontinued, 1 | | | Performable | | | completed | | | s | | | | + + +--------+ + + | RBC MORPHOLOGY | Lab - | Routin | | 01/16/2019 until | | | [facility] | e | | discontinued, 1 | | | Performable | | | completed | | | s | | | | + + +--------+ + + | VAT: PICC INSERTION | Imaging | Routin | | One Time for 1 | | W/US | | e | | Occurrences starting | | | | | | 01/16/2019 until | | | | | | 01/16/2019 | + + +--------+ + + | RBC MORPHOLOGY | Lab - | Routin | | 01/17/2019 until | | | [facility] | e | | discontinued, 1 | | | Performable | | | completed | | | s | | | | + + +--------+ + + documented as of this encounter Procedures + +--------+ + + + | Procedure Name | Priori | Date/Time | Associated Diagnosis | Comments | | | ty | | | | + +--------+ + + + | BIOPSY AND | Routin | 01/17/2019 | | Results for this | | ASPIRATION OF BONE | e | 3:35 PM | | procedure are in the | | MARROW | | PDT | | results section. | + +--------+ + + + | FLT3 ITD, BONE | Routin | 01/17/2019 | | Results for this | | MARROW | e | 1:45 PM | | procedure are in the | | | | PDT | | results section. | + +--------+ + + + | COMPREHENSIVE HEME | Routin | 01/17/2019 | | Results for this | | PANEL SEQ, BONE | e | 1:45 PM | | procedure are in the | | MARROW | | PDT | | results section. | + +--------+ + + + | GENETRAILS | Routin | 01/17/2019 | | Results for this | | COMPREHENSIVE HEME | e | 1:45 PM | | procedure are in the | | PANEL, BONE MARROW | | PDT | | results section. | + +--------+ + + + | LEUKEMIA/LYMPHOMA | Urgent | 01/17/2019 | | Results for this | | MARKERS - BONE | | 1:45 PM | | procedure are in the | | MARROW | | PDT | | results section. | + +--------+ + + + | CYTOGENETICS BONE | Routin | 01/17/2019 | | Results for this | | MARROW CHROMOSOME | e | 1:45 PM | | procedure are in the | | ANALYSIS (W/FISH) | | PDT | | results section. | + +--------+ + + + | VASC LAB VENOUS | Routin | 01/17/2019 | | Results for this | | DUPLEX UPPER | e | 11:05 AM | | procedure are in the | | EXTREMITY RT | | PDT | | results section. | + +--------+ + + + | RBC MORPHOLOGY | Routin | 01/17/2019 | | Results for this | | | e | 4:17 AM | | procedure are in the | | | | PDT | | results section. | + +--------+ + + + | CBC AND AUTO DIFF | Routin | 01/17/2019 | | Results for this | | | e | 4:17 AM | | procedure are in the | | | | PDT | | results section. | + +--------+ + + + | INR | Routin | 01/17/2019 | | Results for this | | | e | 4:17 AM | | procedure are in the | | | | PDT | | results section. | + +--------+ + + + | CBC, WITH | Routin | 01/17/2019 | | Results for this | | DIFFERENTIAL | e | 4:17 AM | | procedure are in the | | | | PDT | | results section. | + +--------+ + + + | COMPLETE METABOLIC | Routin | 01/17/2019 | | Results for this | | SET | e | 4:17 AM | | procedure are in the | | (NA,K,CL,CO2,BUN,CRE | | PDT | | results section. | | AT,GLUC,CA,AST,ALT,B | | | | | | TI TOTAL,ALK | | | | | | PHOS,ALB,PROT TOTAL) | | | | | + +--------+ + + + | PHOSPHORUS, PLASMA | Routin | 01/17/2019 | | Results for this | | | e | 4:17 AM | | procedure are in the | | | | PDT | | results section. | + +--------+ + + + | URIC ACID, PLASMA | Routin | 01/17/2019 | | Results for this | | | e | 4:17 AM | | procedure are in the | | | | PDT | | results section. | + +--------+ + + + | MAGNESIUM, PLASMA | Routin | 01/17/2019 | | Results for this | | | e | 4:17 AM | | procedure are in the | | | | PDT | | results section. | + +--------+ + + + | LDH TOTAL, PLASMA | Routin | 01/17/2019 | | Results for this | | | e | 4:17 AM | | procedure are in the | | | | PDT | | results section. | + +--------+ + + + | VASC LAB VENOUS | Routin | 01/16/2019 | | Results for this | | DUPLEX UPPER | e | 1:55 PM | | procedure are in the | | EXTREMITY LT | | PDT | | results section. | + +--------+ + + + | RBC MORPHOLOGY | Routin | 01/16/2019 | | Results for this | | | e | 4:05 AM | | procedure are in the | | | | PDT | | results section. | + +--------+ + + + | CBC AND AUTO DIFF | Routin | 01/16/2019 | | Results for this | | | e | 4:05 AM | | procedure are in the | | | | PDT | | results section. | + +--------+ + + + | CBC, WITH | Routin | 01/16/2019 | | Results for this | | DIFFERENTIAL | e | 4:05 AM | | procedure are in the | | | | PDT | | results section. | + +--------+ + + + | COMPLETE METABOLIC | Routin | 01/16/2019 | | Results for this | | SET | e | 4:05 AM | | procedure are in the | | (NA,K,CL,CO2,BUN,CRE | | PDT | | results section. | | AT,GLUC,CA,AST,ALT,B | | | | | | TI TOTAL,ALK | | | | | | PHOS,ALB,PROT TOTAL) | | | | | + +--------+ + + + | PHOSPHORUS, PLASMA | Routin | 01/16/2019 | | Results for this | | | e | 4:05 AM | | procedure are in the | | | | PDT | | results section. | + +--------+ + + + | MAGNESIUM, PLASMA | Routin | 01/16/2019 | | Results for this | | | e | 4:05 AM | | procedure are in the | | | | PDT | | results section. | + +--------+ + + + | JENSEN (VANA) BY PCR | Routin | 01/15/2019 | | Results for this | | | e | 6:52 AM | | procedure are in the | | | | PDT | | results section. | + +--------+ + + + | RBC MORPHOLOGY | Routin | 01/15/2019 | | Results for this | | | e | 4:20 AM | | procedure are in the | | | | PDT | | results section. | + +--------+ + + + | CBC AND AUTO DIFF | Routin | 01/15/2019 | | Results for this | | | e | 4:20 AM | | procedure are in the | | | | PDT | | results section. | + +--------+ + + + | CBC, WITH | Routin | 01/15/2019 | | Results for this | | DIFFERENTIAL | e | 4:20 AM | | procedure are in the | | | | PDT | | results section. | + +--------+ + + + | COMPLETE METABOLIC | Routin | 01/15/2019 | | Results for this | | SET | e | 4:20 AM | | procedure are in the | | (NA,K,CL,CO2,BUN,CRE | | PDT | | results section. | | AT,GLUC,CA,AST,ALT,B | | | | | | TI TOTAL,ALK | | | | | | PHOS,ALB,PROT TOTAL) | | | | | + +--------+ + + + | PHOSPHORUS, PLASMA | Routin | 01/15/2019 | | Results for this | | | e | 4:20 AM | | procedure are in the | | | | PDT | | results section. | + +--------+ + + + | MAGNESIUM, PLASMA | Routin | 01/15/2019 | | Results for this | | | e | 4:20 AM | | procedure are in the | | | | PDT | | results section. | + +--------+ + + + | X-RAY CHEST 2 VIEW | Routin | 01/14/2019 | | Results for this | | | e | 1:42 PM | | procedure are in the | | | | PDT | | results section. | + +--------+ + + + | LONNY RICHARDICK ONLY | Routin | 01/14/2019 | | Results for this | | | e | 1:32 PM | | procedure are in the | | | | PDT | | results section. | + +--------+ + + + | URINE, MICROSCOPIC | Routin | 01/14/2019 | | Results for this | | EXAM | e | 1:32 PM | | procedure are in the | | | | PDT | | results section. | + +--------+ + + + | CULTURE, BLOOD BACTI | Routin | 01/14/2019 | | Results for this | | & YEAST [facility] | e | 12:56 PM | | procedure are in the | | | | PDT | | results section. | + +--------+ + + + | CULTURE, BLOOD BACTI | Routin | 01/14/2019 | | Results for this | | & YEAST | e | 12:56 PM | | procedure are in the | | | | PDT | | results section. | + +--------+ + + + | CULTURE, BLOOD BACTI | Routin | 01/14/2019 | | Results for this | | & YEAST [facility] | e | 12:27 PM | | procedure are in the | | | | PDT | | results section. | + +--------+ + + + | RBC MORPHOLOGY | Routin | 01/14/2019 | | Results for this | | | e | 12:27 PM | | procedure are in the | | | | PDT | | results section. | + +--------+ + + + | CBC AND AUTO DIFF | Routin | 01/14/2019 | | Results for this | | | e | 12:27 PM | | procedure are in the | | | | PDT | | results section. | + +--------+ + + + | INR | Routin | 01/14/2019 | | Results for this | | | e | 12:27 PM | | procedure are in the | | | | PDT | | results section. | + +--------+ + + + | CBC, WITH | Routin | 01/14/2019 | | Results for this | | DIFFERENTIAL | e | 12:27 PM | | procedure are in the | | | | PDT | | results section. | + +--------+ + + + | COMPLETE METABOLIC | Routin | 01/14/2019 | | Results for this | | SET | e | 12:27 PM | | procedure are in the | | (NA,K,CL,CO2,BUN,CRE | | PDT | | results section. | | AT,GLUC,CA,AST,ALT,B | | | | | | TI TOTAL,ALK | | | | | | PHOS,ALB,PROT TOTAL) | | | | | + +--------+ + + + | CULTURE, BLOOD BACTI | Routin | 01/14/2019 | | Results for this | | & YEAST | e | 12:27 PM | | procedure are in the | | | | PDT | | results section. | + +--------+ + + + | PHOSPHORUS, PLASMA | Routin | 01/14/2019 | | Results for this | | | e | 12:27 PM | | procedure are in the | | | | PDT | | results section. | + +--------+ + + + | BILIRUBIN DIRECT | Routin | 01/14/2019 | | Results for this | | | e | 12:27 PM | | procedure are in the | | | | PDT | | results section. | + +--------+ + + + | URIC ACID, PLASMA | Routin | 01/14/2019 | | Results for this | | | e | 12:27 PM | | procedure are in the | | | | PDT | | results section. | + +--------+ + + + | MAGNESIUM, PLASMA | Routin | 01/14/2019 | | Results for this | | | e | 12:27 PM | | procedure are in the | | | | PDT | | results section. | + +--------+ + + + | LDH TOTAL, PLASMA | Routin | 01/14/2019 | | Results for this | | | e | 12:27 PM | | procedure are in the | | | | PDT | | results section. | + +--------+ + + + | LAB REPORTS | | 01/14/2019 | | Results for this | | | | 12:00 AM | | procedure are in the | | | | PDT | | results section. | + +--------+ + + + documented in this encounter Results BIOPSY AND ASPIRATION OF BONE MARROW (01/17/2019 3:35 PM PDT) + + + | Narrative | Performed At | + + + | Best Calabrese PA-C, MPAS 01/17/2019 3:37 PM Procedure: Bone | | | marrow aspirate and biopsy w/medications for anxiolysis Equipment | | | Description: [employer] Serial ID: [id number] Indications: 53 | | | y.o. 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 Team | | | Pause: At 1300, prior to the beginning of the procedure, the team | | | paused to verify the patient | | | | | | s identity, the procedure to be performed (in accordance with the | | | consent,) and the correct side/site. The patient was positioned | | | appropriately. All relevant images and results were properly labeled | | | and displayed. We addressed antibiotic prophylaxis and fluids for | | | irrigation as applicable to this patient. Any safety precautions | | | were addressed. Best Calabrese PA-C, MPAS and Colten BUTLER Description: | | | Written consent for bone marrow aspirate and biopsy was obtained | | | from the patient following a brief discussion regarding the risks | | | and benefits of the procedure. She was then premedicated for | | | anxiolysis with Ativan 1mg PO. The skin over her left posterior | | | iliac crest was cleansed with betadine and draped in a sterile | | | manner. Xylocaine 1% was used for local anesthesia. A scalpel was | | | used to enlarge the insertion site. An [employer] 4 inch aspirate | | | needle was inserted with the [employer] courtesy van driver. The first aspirate | | | was noted to have spicules and was submitted for morphology studies. | | | A second aspirate was obtained in a heparinized syringe and | | | submitted for FISH as per previous abnormalities, flow cytometry and | | | cytogenetics. A total of 15 mL of bone marrow was aspirated. | | | The [employer] 4 inch needle was advanced using the [employer] courtesy van driver. | | | A core biopsy measuring approximately 1 cm was obtained and | | | submitted for morphology studies. Hemostasis was achieved and a | | | pressure dressing was applied. The patient was observed for 20 | | | minutes post-procedure for signs of bleeding. Pt tolerated the | | | procedure well without complications. The results of this | | | procedure will take approximately 7 to 10 days for full analysis. | | | However, preliminary results should be available within the next | | | 24 to 48 hours. Best Calabrese PA-C,[facility] [address] | | | [facility] Mailcode: [address] [place] [address] | | | [phone] | | + + + FLT3 ITD, BONE MARROW (01/17/2019 1:45 PM PDT) + + + + + + | Component | Value | Ref Range | Performed | Pathologist | | | | | At | Signature | + + + + + + | FLT3 ITD | Undetected. | | [facility] | | | | | | DIAGNOSTIC | | | | | | | | | | | | LABORATORIE | | | | | | S | | + + + + + + | INTERPRETAT | No internal tandem | | [facility] | | | ION | duplication (ITD)In [...] Blood | | | | | | 2007;111:2215-2737. | | | | + + + + + + | DISCLAIMER | This test was developed | | [facility] | | | | and its performance | | DIAGNOSTIC | | | | characteristics | | | | | | determined by the [facility] | | LABORATORIE | | | | [facility] Diagnostic | | S | | [...] | | | | | (CLIA). The [facility] | | | | | | Diagnostics | | | | | | Laboratories are fully | | | | | | licensed by the state of | | | | | | [place] under CLIA and | | | | | | are accredited by the | | | | | | [employer] | | | | | | Pathologists (CAP). | | | | | | Coal Shooter: | | | | | | Tayo [...] + + + + | [facility] | [address] | [place] [address] | | | DIAGNOSTIC | [address] | | | | LABORATORIES | | | | + + + + + COMPREHENSIVE HEME PANEL SEQ, BONE MARROW (01/17/2019 1:45 PM PDT) + + + + + + | Component | Value | Ref Range | Performed | Pathologist | | | | | At | Signature | + + + + + + | COMPREHENSI | See Interpretation. 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 | | | | | | Variant(s) of Unknown | | | | | | Significance (Tier | | | | | | III)Gene: YVS2Jilggtx: | | | | | | p.U8609DLegafpv allele | | | | | | frequency (VAF): | | | | | | 51%Variant ID: | | | | | | [id number]; | | | | | | [id number], | | | | | | [id number] | | | | | | ([id number]):c.3929C>T; | | | | | | [id number]>ALast | | | | | | Observed: 12/02/2018; | | | | | | Allele frequency: | | | | | | 46%Gene: RAN4Oyyfyoq: | | | | | | p.A3733TTofxhpq allele | | | | | | frequency (VAF): | | | | | | 49%Variant ID: | | | | | | [id number]; | | | | | | [id number], | | | | | | [id number], | | | | | | [id number] | | | | | | (UTST7634.3):c.34424O>A; | | | | | | chr4:[id number]>ALast | | | | | | Observed: 12/02/2018; | | | | | | Allele frequency: | | | | | | 53%Gene: MXQWR1Ccorxdk: | | | | | | p.O990RHzecurc allele | | | | | | frequency (VAF): | | | | | | 48%Variant ID: | | | | | | [id number] | | | | | | ([id number]):c.2267C>T; | | | | | | [id number]>TLast | | | | | | Observed: 12/02/2018; | | | | | | Allele frequency: | | | | | | 50%Gene: NZD6FEhonbki: | | | | | | p.A522POpzfvwm allele | | | | | | frequency (VAF): | | | | | | 47%Variant ID: | | | | | | [id number] | | | | | | ([id number]):c.494G>A; | | | | | | [id number]:[id number]>ALast | | | | | | Observed: 12/02/2018; | | | | | | Allele frequency: 50% | | | | | | Case reviewed by:Giovanny | | | | | | MD Nick, FACMG/Clinical | | | | | | Molecular | | | | | | GeneticistJennifer | | | | | | [place], | | | | | | MD/HematopathologistTest | | | | | | Details:This test is | | | | [...] | | | | | GSKIP HAX1 TQIY4P5G | | | | | | HNRNPK [...] PRKCB | | | | | | GALW77E PRPF8 PRPS1 | | | | | [...] | | | | | | SYNE1 RPY7FZ6 TCF3 TCF4 | | | | | | TERC TERT TET2 TNFAIP3 | | | | | | AEUTNM03 TP53 TRAF3 | | | | | [...] of | | | | | | 2674. However, a small | | | | | | fraction (100 minus the | | | | | | percentage in the | | | | | | parenthesis) of the | | | | | | targeted regions of the | | | | | | following genes: MAML1 | | | | | | (99%), ASXL1 (99%), PCLO | | | | | | (99%), SPEN (99%), | | | | | | NOTCH2 (99%), RAD21 | | | | | | (99%), JAK1 (99%), | | | | | | ARID1B (98%), SETBP1 | | | | | | (98%), KLF2 (97%), DTX1 | | | | | | (96%), CD79A (95%), | | | | | | STAT5B (94%), SPI1 | | | | | | (94%), BRD4 (93%), PMS2 | | | | | | [...] METHOD | Genomic variants have | | [facility] | | | | been classified in [...] | Genomic DNA is extracted | | [facility] | | | | and purified from [...] platform | | | | | | (NextZeeVeeq 500 or 550). | | | | [...] ROUSE, et al; 2017, J | | [facility] | | | | Mol Diagn. | [...] | | | | | | 2016; 127(20):1152-316. | | | | | | 7. Catalogue Of Somatic | | | | | | Mutations In Cancer: | | | | | | [email or web address]. | | | | | | uk/[email or web address]. ClinVar: | | | | | | https://www.ncbi.nlm.nih | | | | | | .gov/clinvar/9. | | | | | | DINA-Clinical | | | | | | Knowledgebase (CKB): | | | | | | https://ckb.dina.org/10. | | | | | | CIViC: | | | | | | https://civicdb.org/home | | | | + + + + + + | DISCLAIMER | This test was developed | | [facility] | | | | and its performance | | DIAGNOSTIC | | | | characteristics | | | | | | determined by the [facility] | | LABORATORIE | | | | [facility] Diagnostic | | S | | [...] | | | | | (CLIA). The [facility] | | | | | | Diagnostics | | | | | | Laboratories are fully | | | | | | licensed by the state of | | | | | | [place] under CLIA and | | | | | | are accredited by the | | | | | | [employer] | | | | | | Pathologists (CAP). | | | | | | Coal Shooter: | | | | | | Tayo Singletary, | | | | | | MNarcisa, Ph.DReviewed and | | | | | | electronically signed by | | | | | | Sejal [place], | | | | | | 01/30/2019 2:46 | | | | | | PMReviewed and | | | | | | electronically signed by | | | | | | Sejal [place], | | | | | | 01/30/2019 2:47 PM | | | | + + + + + + + + | Specimen | + + | Bone marrow - Bone | | marrow structure | | (body structure) | + + + + + + + | Performing | Address | City/State/Zipcode | Phone Number | | Organization | | | | + + + + + | [facility] | [address] | [place] [address] | | | DIAGNOSTIC | [address] | | | | LABORATORIES | | | | + + + + + CYTOGENETICS BONE MARROW CHROMOSOME ANALYSIS (W/FISH) (01/17/2019 1:45 PM PDT) + + + + + + | Component | Value | Ref Range | Performed | Pathologist | | | | | At | Signature | + + + + + + | Chromosome | Normal | | [facility] | | | Results | | | DIAGNOSTIC | | | | | | | | | | | | LABORATORIE | | | | | | S | | + + + + + + | Impressions | KARYOTYPE: 46,XX[20]All | | [facility] | | | and | twenty metaphase cells | | DIAGNOSTIC | | | Recommendat | examined appeared normal | | | | | ions | female.Thank you very | | LABORATORIE | | | | much for your referral. | | S | | | | If you have any | | | | | | questions regarding this | | | | | | report or future | | | | | | cytogenetic testing | | | | | | issues, please feel free | | | | | | to contact us.Reason | | | | | | for Referral: mdsThe | | | | | | clinical interpretation | | | | | | was made by the clinical | | | | | | pc support specialist. | | | | + + + + + + | Number of | 3 | | [facility] | | | Cells | | | DIAGNOSTIC | | | Karyotpyed | | | | | | | | | LABORATORIE | | | | | | S | | + + + + + + | Number of | 20 | | [facility] | | | Cells | | | DIAGNOSTIC | | | Analyzed: | | | | | | | | | LABORATORIE | | | | | | S | | + + + + + + | Number of | N/A | | [facility] | | | Cells | | | DIAGNOSTIC | | | Counted: | | | | | | | | | LABORATORIE | | | | | | S | | + + + + + + | Banding | 450 | | [facility] | | | Level: | | | DIAGNOSTIC | | | | | | | | | | | | LABORATORIE | | | | | | S | | + + + + + + | Banding | GTW | | [facility] | | | Method: | | | DIAGNOSTIC | | | | | | | | | | | | LABORATORIE | | | | | | S | | + + + + + + | DISCLAIMER | This test was developed | | [facility] | | | | and its performance | | DIAGNOSTIC | | | | characteristics | | | | | | determined by the [facility] | | LABORATORIE | | | | [facility] Diagnostic | | S | | [...] | | | | | (CLIA). The [facility] | | | | | | Diagnostics | | | | | | Laboratories are fully | | | | | | licensed by the state of | | | | | | [place] under CLIA and | | | | | | are accredited by the | | | | | | [employer] | | | | | | Pathologists (CAP). | | | | | | Coal Shooter: | | | | | | Tayo Singletary, | | | | | | Isabela, Ph.DElectronically | | | | | | reviewed and signed | | | | | | by:Chuy Acuna, PhD, | | | | | | FACMGClinical | | | | | | [employer] Clinical | | | | | | Molecular | | | | | | Geneticist01/26/2019 at | | | | | | 5:17 PMReviewed and | | | | | | electronically signed by | | | | | | CONG CINTRON, | | | | | | ,[facility]01/26/2019 8:30 | | | | | | PMReviewed and | | | | | | electronically signed by | | | | | | CONG CINTRON, | | | | | | ,[facility]01/26/2019 8:30 | | | | | | PM | | | | + + + + + + | Cytogenetic | Normal | | [facility] | | | s Bone | | [...] + + + + | [facility] | [address] 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 Evaluation is | | | | | | hampered by the | | | | | | suboptimal aspirate | | | | | | smears and severe | | | | | | procedural artifact in | | | | | | the biopsy core. | | | | | | Correlation with pending | | | | | | cytogenetic/FISH and | | | | | | molecular studies is | | | | | | recommended for | | | | | | definitive | | | | | | interpretation. Case | | | | | | seen by:Rickie Chakraborty, | | | | | | - Hematopathology | | | | | | FellowJeanne Love MD - | | | | | | | | | | | | HematopathologistPatholo | | | | | | gy, [facility] & | | | | | | 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 A | | | | | | previous molecular | | | | | | analysis identified 4 | | | | | | Tier III variants of | | | | | | unknown significance. | | | | | | CBC: Resulted Date and | | | | | | Time: 01/17/2019 0442 | | | | | | PDT Component Result | | | | | | Reference Range WHITE | | | | | | CELL COUNT 1.70 | | | | | | 3.50-10.80 K/cu mm RED | | | | | | CELL COUNT 2.66 | | | | | | 4.00-5.20 M/cu mm | | | | | | HEMOGLOBIN 7.8 | | | | | | 12.0-16.0 g/dL | | | | | | HEMATOCRIT 24.5 | | | | | | 36.0-46.0 % MCV 92.1 | | | | | | 80.0-100.0 fL MCHC | | | | | | 31.8 32.0-36.0 g/dL | | | | | | RDW SD 53.9 35.1-46.3 | | | | | | fL PLATELET COUNT | | | | | | 433 150-400 K/cu mm MPV | | | | | | 10.1 9.7-12.3 fL NRBC% | | | | | | 0.0 0.0-0.3 % NRBC# 0.00 | | | | | | 0.00-0.02 K/cu mm | | | | | | PERIPHERAL BLOOD | | | | | | DIFFERENTIAL | | | | | | | | | | | | NEUTROPHIL % | | | | | | 24.7 50.0-70.0 % | | | | | | LYMPHOCYTE % 67.6 | | | | | | 18.0-42.0 % MONOCYTE % | | | | | | 5.3 3.5-9.0 % EOS % | | | | | | 0.6 1.0-3.0 % BASO % | | | | | | 1.2 0.0-2.0 % IG% 0.6 | | | | | | 0.0-1.0 % NEUTROPHIL # | | | | | | 0.42 1.80-7.70 K/cu | | | | | | mm LYMPHOCYTE # 1.15 | | | | | | 1.00-4.80 K/cu mm | | | | | | MONOCYTE # 0.09 | | | | | | 0.10-0.90 K/cu mm EOS # | | | | | | 0.01 0.00-0.50 K/cu mm | | | | | | BASO # 0.02 0.00-0.10 | | | | | | K/cu mm IG# 0.01 | | | | | | 0.00-0.10 K/cu mm | | | | | | PERIPHERAL BLOOD | | | | | | MORPHOLOGY:WBC: | | | | | | Predominately smaller | | | | | | lymphocytes with some | | | | | | moderate sized forms. | | | | | | Granulocytes are | | | | | | variably hypogranular | | | | | | with some showing | | | | | | abnormal localization of | | | | | | granules. Blasts are | | | | | | not identified. RBC: | | | | | | Mild anisocytosis. | | | | | | Platelets: Increased, | | | | | | composed predominately | | | | | | of smaller and | | | | | | occasional larger forms | | | | | | with normal granulation. | | | | | | BONE MARROW ASPIRATE | | | | | | SMEARS:Quality: Rare | | | | | | particles; poor quality. | | | | | | Blasts: Not increased. | | | | | | Myeloids: Complete | | | | | | maturation. Mild | | | | | | megaloblastic/dysplastic | | | | | | features. Erythroids: | | | | | | Complete maturation with | | | | | | mild | | | | | | megaloblastic/dysplastic | | | | | | features. | | | | | | Megakaryocytes: Mildly | | | | | | increased. Rare clusters | | | | | | identified. Some | | | | | | atypica forms. | | | | | | Lymphocytes: [...] | | | | | smears. Myeloids: 36% | | | | | | Erythroids: 44% Blasts: | | | | | | 2% Lymphocytes: 14% | | | | | | Plasma cells: 3% M:E | | | | | | Ratio: 0.8:1 Total cells | | | | | | counted: 200 BONE | | | | | | MARROW BIOPSY/CLOT | | | | | | SECTION:Quality: | | | | | | Adequate. Clot section | | | | | | contains rare particles. | | | | | | Cellularity: Variable, | | | | | | up to 70%. Myeloids: | | | | | | Relatively decreased. | | | | | | Erythroids: Relatively | | | | | | increased with large | | | | | | islands of immature | | | | | | erythroids. | | | | | | Megakaryocytes: | | | | | | Increased with abnormal | | | | | | clustering and atypical | | | | | | megakaryocyte | | | | | | localization adjacent to | | | | | | trabeculae. Infiltrate: | | | | | | Not identified. FLOW | | | | | | CYTOMETRIC ANALYSIS: % | | | | | | of total WBC | | | | | | (CD45+)Myeloid Blasts 2 | | | | | | Monocytes 4 Lymphocytes | | | | | | 60 % of | | | | | | LymphocytesB-cells 7 | | | | | | T-cells 86 NK-cells 6 | | | | | | RatioKappa/Lambda 1.3:1 | | | | | | CD4/CD8 5.3:1 Summary: | | | | | | Less than 2% myeloid | | | | | | blasts are identified | | | | | | that are CD13, C33, | | | | | | CD34, variable CD117 and | | | | | | variable HLA-DR+. The | | | | | | majority of events are | | | | | | mature lymphocytes | | | | | | including T-cells | | | | | | without aberrant | | | | | | immunophenotype and | | | | | | B-cells with distinct | | | | | | populations including | | | | | | mature polyclonal | | | | | | B-cells and a population | | | | | | consistent with | | | | | | hematogones. Monocytes | | | | | | form a distinct | | | | | | population with strong | | | | | | CD14 and abnormal | | | | | | variable HLA-DR. | | | | | | Cytospin preparation | | | | | | shows minimal | | | | | | hematopoetic elements | | | | | | indicating possible | | | | | | hemodilution.Antibodies | | | | | | Tested CD2 CD3 CD4 CD5 | | | | | | CD7 CD8 CD10 CD11b CD13 | | | | | | CD14 CD15 CD16 CD19 CD20 | | | | | | CD23 CD25 CD33 CD34 | | | | | | CD38 CD9 CD45 CD56 CD64 | | | | | | CD103 CD117 CD123 YM624e | | | | | | HLA-DR sKappa sLambda | | | | | | IMMUNOHISTOCHEMICAL | | | | | | STAINS: IHC stains for | | | | | | CD34 and CD117 were | | | | | | [...] | | | | | | cells. SPECIAL STAINS: | | | | | | Iron stain performed on | | | | | | aspirate smears is | | | | | | inadequate for storage | | | | | | iron. Ring sideroblasts | | | | | | are not identified in | | | | | | immature erythroids. | | | | | | Iron stain on clot | | | | | | section shows normal to | | | | | | mildly increased storage | | | | | | iron. Reticulin and | | | | | | trichrome stains on core | | | | | | biopsy show no fibrosis | | | | | | with only scant | | | | | | reticulin fibers | | | | | | predominately around | | | | | | vasculature. | | | | + + + + + + | Gross | Both the clot and core | | [facility] | | | Description | biopsy were fixed in | | DEPARTMENT | | | | formalin. The core | | OF | | | | biopsy was decalcified. | | PATHOLOGY | | | | Rothman-stained bone | | | | | | marrow aspirate and | | | | | | peripheral blood smears, | | | | | | as well as biopsy touch | | | | | | preparations, were | | | | | | prepared for morphologic | | | | | | review. B: Bone | | | | | | Marrow Clot -2 x 2 x 0.2 | | | | | | cmC. Bone Marrow | | | | | | Biopsy -1.4 L x 0.3 D | | | | | | cmIf immunohistochemical | | | | | | analysis (IHC) was | | | | | | performed, it was done | | | | | | to allows assessment of | | | | | | immunoarchitecture, | | | | | | which is not supplied by | | | | | | flow cytometry, whereas | | | | | | flow cytometry enables | | | | | | better assessment of | | | | | | clonality and antigen | | | | | | aberrancy than IHC. | | | | | | Analyte specific | | | | | | reagents are used in | | | | | | many laboratory tests | | | | | | necessary for standard | | | | | | medical care. This test | | | | | | was developed and its | | | | | | performance | | | | | | characteristics | | | | | | determined by [facility] | | | | | | laboratories. It has | | | | | [...] | | | | | laboratory testing. | | | | + + + + + + + + | Specimen | + + | Bone marrow - Blood | | (substance) | + + | Bone marrow - Bone | | marrow structure | | (body structure) | + + | Bone marrow - Bone | | marrow structure | | (body structure) | + + | Bone marrow - Blood | | (substance) | + + + + + + + | Performing | Address | City/State/Zipcode | Phone Number | | Organization | | | | + + + + + | [facility] | [id number] | [place] [address] | | | PATHOLOGY | [address] | | | + + + + + VASC LAB VENOUS DUPLEX UPPER EXTREMITY RT (01/17/2019 11:05 AM PDT) + + | Specimen | + + | | + + + + + | Narrative | Performed At | + + + | Right: The duplex scanner was used to examine the internal jugular, | [facility] | | subclavian, axillary, brachial, cephalic and basilic veins on the | RADIOLOGY VASC | | right side. Right: There is an IV line in the brachial vein in the | [place] | | antecubital fossa. There is occlusive thrombus in the brachial vein | | | at the level of the distal upper arm. All other veins are patent | | | with normal flow and responses to augmentation and compression | | | maneuvers and there is no other thrombus detected. The left | | | subclavian vein has normal flow. Conclusions: Abnormal venous | | | examination of the right upper extremity. There is deep vein | | | thrombus in the brachial vein. There is no other thrombus identified | | | in the right upper extremity. The left arm was not examined. | | | I have personally reviewed the images and, if necessary, edited | | | the report. I agree with the report as now presented. | | + + + + + | Procedure Note | + + | Service Account, Doculogy In Interface - 01/17/2019 10:51 AM PDT Right: The duplex | | scanner was used to examine the internal jugular, subclavian, axillary, brachial, | | cephalic and basilic veins on the right side. Right: There is an IV line in the | | brachial vein in the antecubital fossa. There is occlusive thrombus in the brachial | | vein at the level of the distal upper arm. All other veins are patent with normal flow | | and responses to augmentation and compression maneuvers and there is no other thrombus | | detected. The left subclavian vein has normal flow.Conclusions: Abnormal venous | | examination of the right upper extremity. There is deep vein thrombus in the brachial | | vein. There is no other thrombus identified in the right upper extremity. The left arm | | was not examined.I have personally reviewed the images and, if necessary, edited the | | report. I agree with the report as now presented. | | | |I have personally reviewed the images and, if necessary, edited the report. I agree with t he report as now presented. | + + + +---------+ + + | Performing | Address | City/State/Zipcode | Phone Number | | Organization | | | | + +---------+ + + | [facility] | | | | | VASC US | | | | + +---------+ + + RBC MORPHOLOGY (01/17/2019 4:17 AM PDT) + + + + + [...] + + + + | SCHISTOCYTE | 2+(3-10cells/HPF) | | [facility] | | | S [...] + + + | TEAR DROP | 1+ (<1-2cells/HPF) | | [facility] | | | CELLS [...] | + + + + + | [facility] | [address] | [place] [address] | | | SERVICES, CORE | [address] | | | + + + + + CBC AND AUTO DIFF (01/17/2019 4:17 AM PDT) + + + + + + | Component | Value | Ref Range | Performed | Pathologist | | | | | At | Signature | + + + + + + | WHITE CELL | 1.70 (L) | 3.50 - 10.80 | [facility] | | | COUNT | | K/cu mm | LABORATORY | | | | | | SERVICES, | | | | | | CORE | | + + + + + + | RED CELL | 2.66 (L) | 4.00 - 5.20 | [facility] | | | COUNT | | M/cu mm | LABORATORY | | | | | | SERVICES, | | | | | | CORE | | + + + + + + | HEMOGLOBIN | 7.8 (L) | 12.0 - 16.0 | [facility] | | | | | g/dL | LABORATORY | | | | | | SERVICES, | | | | | | CORE | | + + + + + + | HEMATOCRIT | 24.5 (L) | 36.0 - 46.0 % | [facility] | | | | | | LABORATORY | | | | | | SERVICES, | | | | | | CORE | | + + + + + + | MCV | 92.1 | 80.0 - 100.0 fL | [facility] | | | | | | LABORATORY | | | | | | SERVICES, | | | | | | CORE | | + + + + + + | MCHC | 31.8 (L) | 32.0 - 36.0 | [facility] | | | | | g/dL | LABORATORY | | | | | | SERVICES, | | | | | | CORE | | + + + + + + | RDW SD | 53.9 (H) | 35.1 - 46.3 fL | [facility] | | | | | | LABORATORY | | | | | | SERVICES, | | | | | | CORE | | + + + + + + | PLATELET | 433 (H)Comment: Macro | 150 - 400 K/cu | [facility] | | | COUNT | platelets present. | mm | LABORATORY | | | | | | SERVICES, | | | | | | CORE | | + + + + + + | MPV | 10.1 | 9.7 - 12.3 fL | [facility] [...] + + + + | NEUTROPHIL | 24.7 (L) | 50.0 - 70.0 % | [facility] | | | % | | | LABORATORY | | | | | | SERVICES, | | | | | | CORE | | + + + + + + | LYMPHOCYTE | 67.6 (H) | 18.0 - 42.0 % | [facility] | | | % | | | LABORATORY | | | | | | SERVICES, | | | | | | CORE | | + + + + + + | MONOCYTE % | 5.3 | 3.5 - 9.0 % | [facility] | | | | | | LABORATORY | | | | | | SERVICES, | | | | | | CORE | | + + + + + + | EOS % | 0.6 (L) | 1.0 - 3.0 % | [facility] | | | | | | LABORATORY | | | | | | SERVICES, | | | | | | CORE | | + + + + + + | BASO % | 1.2 | 0.0 - 2.0 % | [facility] | | | | | | LABORATORY | | | | | | SERVICES, | | | | | | CORE | | + + + + + + | IG% | 0.6Comment: Increased | 0.0 - 1.0 % | [facility] | | | | immature granulocytes | | LABORATORY | | | | (IG) define a left | | SERVICES, | | | | shift. Immature | | CORE | | | | granulocytes (IG) are an | | | | | | automated count of | | | | | | metamyelocytes, | | [...] + + + + | NEUTROPHIL | 0.42 (L) | 1.80 - 7.70 | [facility] | | | # | | K/cu mm | LABORATORY | | | | | | SERVICES, | | | | | | CORE | | + + + + + + | LYMPHOCYTE | 1.15 | 1.00 - 4.80 | [facility] | | | # | | K/cu mm | LABORATORY | | | | | | SERVICES, | | | | | | CORE | | + + + + + + | MONOCYTE # | 0.09 (L) | 0.10 - 0.90 | [facility] | | | | | K/cu mm | LABORATORY | | | | | | SERVICES, | | | | | | CORE | | + + + + + + | EOS # | 0.01 | 0.00 - 0.50 | [facility] | [...] the IG count. Bands are | SERVICES, CORE | | included in the neutrophil count. | | + + + + + + + + | Performing | Address | City/State/Zipcode | Phone Number | | Organization | | | | + + + + + | [facility] | [address] | [place] [address] | | | SERVICES, CORE | [address] | | | + + + + + INR (01/17/2019 4:17 AM PDT) + +-------+ + + + | Component | Value | Ref Range | Performed | Pathologist | | | | | At | Signature | + +-------+ + + + | INR | 1.15 | 0.90 - 1.20 INR | [facility] | | | | | | LABORATORY | | | | | | SERVICES, | | | | | | CORE | | + +-------+ + + + + + | Specimen | + + | Blood - Blood | | (substance) | + + + + + | Narrative | Performed At | + + + | INR Therapeutic ranges for full anticoagulation: INR for Venous | [facility] | | Thromboembolism (2.0 - 3.0) INR INR for most | LABORATORY | | patients with mech. valves (2.5 - 3.5) INR | [facility] | + + + + + + + + | Performing | Address | City/State/Zipcode | Phone Number | | Organization | | | | + + + + + | [facility] | [address] | [place] [address] | | | [facility] | [address] | | | + + + + + LDH TOTAL, PLASMA (01/17/2019 4:17 AM PDT) + +---------+ + + + [...] + + | [facility] | [address] | [place] [address] | | | SERVICES, CORE | [address] | | | + + + + + URIC ACID, PLASMA (01/17/2019 4:17 AM PDT) + +-------+ + + + | Component | Value | Ref Range | Performed | Pathologist | | | | | At | Signature | + +-------+ + + + | URIC ACID, | 2.8 | 2.5 - 6.2 mg/dL | [facility] | | | PLASMA [...] | + + + + + | [facility] | [address] | [place] [address] | | | SERVICES, CORE | [address] | | | + + + + + PHOSPHORUS, PLASMA (01/17/2019 4:17 AM PDT) + +-------+ + + + | Component | Value | Ref Range | Performed | Pathologist | | | | | At | Signature | + +-------+ + + + | PHOSPHORUS, | 3.3 | 2.4 - 4.7 mg/dL | [facility] [...] + | [facility] | [address] | [place] [address] | | | SERVICES, CORE | [address] | | | + + + + + MAGNESIUM, PLASMA (01/17/2019 4:17 AM PDT) + +-------+ + + + | Component | Value | Ref Range | Performed | Pathologist | | | | | At | Signature | + +-------+ + + + | MAGNESIUM,P | 2.3 | 1.6 - 2.6 mg/dL | [facility] [...] + + | [facility] | [address] | [place] [address] | | | SERVICES, CORE | [address] | | | + + + + + COMPLETE METABOLIC SET (NA,K,CL,CO2,BUN,CREAT,GLUC,CA,AST,ALT,BILI TOTAL,ALK PHOS,ALB,PROT TOTAL) (01/17/2019 4:17 AM PDT) + + + + + + | Component | Value | Ref Range | Performed | Pathologist | | | | | At | Signature | + + + + + + | GLUCOSE, | 81 | 70 - 99 mg/dL | [facility] | | | PLASMA | | | LABORATORY | | | (LAB) | | | SERVICES, | | | | | | CORE | | + + + + + + | BUN, PLASMA | 5 (L) | 6 - 20 mg/dL | [facility] | | | (LAB) | | | LABORATORY | | | | | | SERVICES, | | | | | | CORE | | + + + + + + | CREATININE | 0.56 (L) | 0.60 - 1.10 | [facility] | | | PLASMA | | mg/dL | LABORATORY | | | (LAB) | | | SERVICES, | | | | | | CORE | | + + + + + + | EGFR | >60 | >60 mL/min | [facility] | | | - | | | LABORATORY | | | BELARUSIAN | | | SERVICES, | | | | | | CORE | | + + + + + + | EGFR NON | >60 | >60 mL/min | [facility] | | | -RENAE | | | LABORATORY | | | RICAN | | | SERVICES, | | | | | | CORE | | + + + + + + | SODIUM, | 142 | 136 - 145 | [facility] | | | PLASMA | | mmol/L | LABORATORY | | | (LAB) | | | SERVICES, | | | | | | CORE | | + + + + + + | POTASSIUM, | 3.7 | 3.4 - 5.0 | [facility] | | | PLASMA | | mmol/L | LABORATORY | | | (LAB) | | | SERVICES, | | | | | | CORE | | + + + + + + | CHLORIDE, | 111 (H) | 97 - 108 mmol/L | [facility] [...] + + + + | CALCIUM, | 8.3 (L) | 8.6 - 10.2 | [facility] | | | PLASMA | | mg/dL | LABORATORY | | | (LAB) | | | SERVICES, | | | | | | CORE | | + + + + + + | CALCIUM(ALB | 10.0 | 8.6 - 10.2 | [facility] | | | CORRECTED) | | mg/dL | LABORATORY | | | | | | SERVICES, | | | | | | CORE | | + + + + + + | BILIRUBIN | 0.2 (L) | 0.3 - 1.2 mg/dL | [facility] | | | TOTAL | | | LABORATORY | | | | | | SERVICES, | | | | | | CORE | | + + + + + + | TOTAL | 5.7 (L) | 6.4 - 8.2 g/dL | [facility] | | | PROTEIN, | | | LABORATORY | | | PLASMA | | | SERVICES, | | | (LAB) | | | CORE | | + + + + + + | ALBUMIN, | 1.9 (L) | 3.5 - 4.7 g/dL | [...] + + + + | AST(SGOT) | 10 | <=41 U/L | [facility] | | | | | | LABORATORY | | | | | | SERVICES, | | | | | | CORE | | + + + + + + | ALT (SGPT) | 19 | <=60 U/L | [facility] | | | | | | LABORATORY | | | | | | SERVICES, | | | | | | CORE | | + + + + + + | ANION GAP | 6 | 4 - 11 mmol/L | [facility] [...] MDRD equation recommended by the National | [facility] | | Kidney Disease Education Program. Estimated [...] | + + + + + | [facility] | [address] | [place] [address] | | | SERVICES, CORE | [address] | | | + + + + + VASC LAB VENOUS DUPLEX UPPER EXTREMITY LT (01/16/2019 1:55 PM PDT) + + | Specimen | + + | | + + + + + | Narrative | Performed At | + + + | Left: The duplex scanner was used to examine the internal jugular, | [facility] | | subclavian, axillary, brachial, cephalic and basilic veins on the left | RADIOLOGY VASC | | side. Left: There is non-occlusive thrombus in the axillary vein | [facility] | | and brachial vein associated with a PICC line and occlusive thrombus | | | in a superficial vein at the mid forearm. All other veins are patent | | | with normal flow and responses to augmentation and compression | | | maneuvers and there is no other thrombus detected. The right | | | subclavian vein has normal flow. Conclusions: Abnormal venous | | | examination of the left upper extremity. There is deep vein thrombus | | | in the axillary and brachial veins asociated with a PICC line and | | | superficial vein thrombus in a superficial vein in mid forearm. There | | | is no other thrombus identified in the left upper extremity. The | | | right arm was not examined. I have personally reviewed | | | the images and, if necessary, edited the report. I agree with the | | | report as now presented. | | + + + + + | Procedure Note | + + | Service Account, Doculogy In Interface - 01/16/2019 7:37 PM PDT Left: The duplex | | scanner was used to examine the internal jugular, subclavian, axillary, brachial, | | cephalic and basilic veins on the left side. Left: There is non-occlusive thrombus in | | the axillary vein and brachial vein associated with a PICC line and occlusive thrombus | | in a superficial vein at the mid forearm. All other veins are patent with normal flow | | and responses to augmentation and compression maneuvers and there is no other thrombus | | detected. The right subclavian vein has normal flow.Conclusions: Abnormal venous | | examination of the left upper extremity.There is deep vein thrombus in the axillary and | | brachial veins asociated with a PICC line and superficial vein thrombus in a superficial | | vein in mid forearm. There is no other thrombus identified in the left upper extremity. | | The right arm was not examined.I have personally reviewed the images and, if | | necessary, edited the report. I agree with the report as now presented. | | | |I have personally reviewed the images and, if necessary, edited the report. I agree with t he report as now presented. | + + + +---------+ + + | Performing | Address | City/State/Zipcode | Phone Number | | Organization | | | | + +---------+ + + | [facility] | | | | | VASC US | | | | + +---------+ + + RBC MORPHOLOGY (01/16/2019 4:05 AM PDT) + + + + + + | Component | Value | Ref Range | Performed | Pathologist | | | | | At | Signature | + + + + + + | SCHISTOCYTE | 1+ (<1-2cells/HPF) | | [facility] | | | S [...] | + + + + + | [facility] | [address] | [place] [address] | | | SERVICES, CORE | [address] | | | + + + + + CBC AND AUTO DIFF (01/16/2019 4:05 AM PDT) + + + + + + | Component | Value | Ref Range | Performed | Pathologist | | | | | At | Signature | + + + + + + | WHITE CELL | 1.29 (L) | 3.50 - 10.80 | [facility] | | | COUNT | | K/cu mm | LABORATORY | | | | | | SERVICES, | | | | | | CORE | | + + + + + + | RED CELL | 2.49 (L) | 4.00 - 5.20 | [facility] | | | COUNT | | M/cu mm | LABORATORY | | | | | | SERVICES, | | | | | | CORE | | + + + + + + | HEMOGLOBIN | 7.4 (L) | 12.0 - 16.0 | [facility] | | | | | g/dL | LABORATORY | | | | | | SERVICES, | | | | | | CORE | | + + + + + + | HEMATOCRIT | 23.5 (L) | 36.0 - 46.0 % | [facility] | | | | | | LABORATORY | | | | | | SERVICES, | | | | | | CORE | | + + + + + + | MCV | 94.4 | 80.0 - 100.0 fL | [facility] | | | | | | LABORATORY | | | | | | SERVICES, | | | | | | CORE | | + + + + + + | MCHC | 31.5 (L) | 32.0 - 36.0 | [facility] | | | | | g/dL | LABORATORY | | | | | | SERVICES, | | | | | | CORE | | + + + + + + | RDW SD | 55.4 (H) | 35.1 - 46.3 fL | [facility] | | | | | | LABORATORY | | | | | | SERVICES, | | | | | | CORE | | + + + + + + | PLATELET | 486 (H)Comment: Giant | 150 - 400 K/cu | [facility] | | | COUNT | platelets present. | mm | LABORATORY | | | | Macroplatelets present. | | SERVICES, | | | | Few platelet clumps | | CORE | | | | present. | | | | + + + + + + | MPV | 10.2 | 9.7 - 12.3 fL | [facility] [...] + + + + | NEUTROPHIL | 31.7 (L) | 50.0 - 70.0 % | [facility] | | | % | | | LABORATORY | | | | | | SERVICES, | | | | | | CORE | | + + + + + + | LYMPHOCYTE | 58.9 (H) | 18.0 - 42.0 % | [facility] | | | % | | | LABORATORY | | | | | | SERVICES, | | | | | | CORE | | + + + + + + | MONOCYTE % | 7.0 | 3.5 - 9.0 % | [facility] [...] + + + + | IG% | 0.8Comment: Increased | 0.0 - 1.0 % | [facility] | | | | immature granulocytes | | LABORATORY | | | | (IG) define a left | | SERVICES, | | | | shift. Immature | | CORE | | | | granulocytes (IG) are an | | | | | | automated count of | | | | | | metamyelocytes, | | [...] + + + + | NEUTROPHIL | 0.41 (L) | 1.80 - 7.70 | [facility] | | | # | | K/cu mm | LABORATORY | | | | | | SERVICES, | | | | | | CORE | | + + + + + + | LYMPHOCYTE | 0.76 (L) | 1.00 - 4.80 | [facility] | | | # | | K/cu mm | LABORATORY | | | | | | SERVICES, | | | | | | CORE | | + + + + + + | MONOCYTE # | 0.09 (L) | 0.10 - 0.90 | [facility] | | | | | K/cu mm | LABORATORY | | | | | | SERVICES, | | | | | | CORE | | + + + + + + | EOS # | 0.01 | 0.00 - 0.50 | [facility] | [...] the IG count. Bands are | SERVICES, CORE | | included in the neutrophil count. | | + + + + + + + + | Performing | Address | City/State/Zipcode | Phone Number | | Organization | | | | + + + + + | [facility] | [address] | [place] [address] | | | SERVICES, CORE | [address] | | | + + + + + PHOSPHORUS, PLASMA (01/16/2019 4:05 AM PDT) + +-------+ + + + [...] | + + + + + | [facility] | [address] | [place] [address] | | | SERVICES, CORE | [address] | | | + + + + + MAGNESIUM, PLASMA (01/16/2019 4:05 AM PDT) + +-------+ + + + | Component | Value | Ref Range | Performed | Pathologist | | | | | At | Signature | + +-------+ + + + | MAGNESIUM,P | 2.1 | 1.6 - 2.6 mg/dL | [facility] | | | LASMA | | | [...] | + + + + + | [facility] | [address] | [place] [address] | | | SERVICES, CORE | [address] | | | + + + + + COMPLETE METABOLIC SET (NA,K,CL,CO2,BUN,CREAT,GLUC,CA,AST,ALT,BILI TOTAL,ALK PHOS,ALB,PROT TOTAL) (01/16/2019 4:05 AM PDT) + +---------+ + + + | Component | Value | Ref Range | Performed | Pathologist | | | | | At | Signature | + +---------+ + + + | GLUCOSE, | 82 | 70 - 99 mg/dL | [facility] | | | PLASMA | | | LABORATORY | | | (LAB) | | | SERVICES, | | | | | | CORE | | + +---------+ + + + | BUN, PLASMA | 7 | 6 - 20 mg/dL | [facility] | | | (LAB) | | | LABORATORY | | | | | | SERVICES, | | | | | | CORE | | + +---------+ + + + | CREATININE | 0.60 | 0.60 - 1.10 | [facility] | | | PLASMA | | mg/dL | LABORATORY | | | (LAB) | | | SERVICES, | | | | | | CORE | | + +---------+ + + + | EGFR | >60 | >60 mL/min | [facility] | | | - | | | LABORATORY | | | [facility] | | | SERVICES, | | | | | | CORE | | + +---------+ + + + | EGFR NON | >60 | >60 mL/min | [facility] | | | -RENAE | | | LABORATORY | | | RICAN | | | SERVICES, | | | | | | CORE | | + +---------+ + + + | SODIUM, | 143 | 136 - 145 | [facility] | [...] +---------+ + + + | CHLORIDE, | 111 (H) | 97 - 108 mmol/L | [facility] [...] +---------+ + + + | CALCIUM, | 8.2 (L) | 8.6 - 10.2 | [facility] | | | PLASMA | | mg/dL | LABORATORY | | | (LAB) | | | SERVICES, | | | | | | CORE | | + +---------+ + + + | CALCIUM(ALB | 10.0 | 8.6 - 10.2 | [facility] | | | CORRECTED) | | mg/dL | LABORATORY | | | | | | SERVICES, | | | | | | CORE | | + +---------+ + + + | BILIRUBIN | 0.2 (L) | 0.3 - 1.2 mg/dL | [facility] | | | TOTAL | | | LABORATORY | | | | | | SERVICES, | | | | | | CORE | | + +---------+ + + + | TOTAL | 5.4 (L) | 6.4 - 8.2 g/dL | [facility] | | | PROTEIN, | | | LABORATORY | | | PLASMA | | | SERVICES, | | | (LAB) | | | CORE | | + +---------+ + + + | ALBUMIN, | 1.8 (L) | 3.5 - 4.7 g/dL | [...] + + + | ALT (SGPT) | 24 | <=60 U/L | [facility] | | | | | | LABORATORY | | | | | | SERVICES, | | | | | | CORE | | + +---------+ + + + | ANION GAP | 7 | 4 - 11 mmol/L | [facility] [...] MDRD equation recommended by the National | [facility] | | Kidney Disease Education Program. Estimated GFR Interpretive | LABORATORY | | Information: <60 mL/min/1.73 sq m Chronic Kidney | SERVICES, [facility] | | Disease <15 mL/min/1.73 sq m [...] | + + + + + | [facility] | [address] | [place] [address] | | | MENG, LUZMARIA | [address] | | | + + + + + VRE (PENNIE) BY PCR (01/15/2019 6:52 AM PDT) + + + + + + | Component | Value | Ref Range | Performed | Pathologist | | | | | At | Signature | + + + + + + | VRE BY PCR | Negative for van A gene | Negative for | [facility] | | | | | van A gene | LABORATORY | | | | | | SERVICES, | | | | | | CORE | | + + + + + + + + | Specimen | + + | Swab - Rectum | | structure (body | | structure) | + + + + + + + | Performing | Address | City/State/Zipcode | Phone Number | | Organization | | | | + + + + + | [facility] | [address] | [place] [address] | | | SERVICES, CORE | [address] | | | + + + + + RBC MORPHOLOGY (01/15/2019 4:20 AM PDT) + + + + + [...] + + + | SCHISTOCYTE | 1+ (<1-2cells/HPF) | | [facility] | | | S [...] | + + + + + | [facility] | [address] | [place] [address] | | | SERVICES, CORE | [address] | | | + + + + + CBC AND AUTO DIFF (01/15/2019 4:20 AM PDT) + + + + + + | Component | Value | Ref Range | Performed | Pathologist | | | | | At | Signature | + + + + + + | WHITE CELL | 1.15 (L) | 3.50 - 10.80 | [facility] | | | COUNT | | K/cu mm | LABORATORY | | | | | | SERVICES, | | | | | | CORE | | + + + + + + | RED CELL | 2.47 (L) | 4.00 - 5.20 | [facility] | | | COUNT | | M/cu mm | LABORATORY | | | | | | SERVICES, | | | | | | CORE | | + + + + + + | HEMOGLOBIN | 7.5 (L) | 12.0 - 16.0 | [facility] [...] + + + + | MCHC | 32.8 | 32.0 - 36.0 | [facility] | | | | | g/dL | LABORATORY | | | | | | SERVICES, | | | | | | CORE | | + + + + + + | RDW SD | 54.7 (H) | 35.1 - 46.3 fL | [facility] | | | | | | LABORATORY | | | | | | SERVICES, | | | | | | CORE | | + + + + + + | PLATELET | 453 (H) | 150 - 400 K/cu | [facility] | | | COUNT | | mm | LABORATORY | | | | | | SERVICES, | | | | | | CORE | | + + + + + + | MPV | 10.1 | 9.7 - 12.3 fL | [facility] [...] + + + + | NEUTROPHIL | 40.8 (L) | 50.0 - 70.0 % | [facility] | | | % | | | LABORATORY | | | | | | SERVICES, | | | | | | CORE | | + + + + + + | LYMPHOCYTE | 51.3 (H) | 18.0 - 42.0 % | [facility] | | | % | | | LABORATORY | | | | | | SERVICES, | | | | | | CORE | | + + + + + + | MONOCYTE % | 6.1 | 3.5 - 9.0 % | [facility] | | | | | | LABORATORY | | | | | | SERVICES, | | | | | | CORE | | + + + + + + | EOS % | 0.9 (L) | 1.0 - 3.0 % | [facility] | | | | | | LABORATORY | | | | | | SERVICES, | | | | | | CORE | | + + + + + + | BASO % | 0.9 | 0.0 - 2.0 % | [facility] | | | | | | LABORATORY | | | | | | SERVICES, | | | | | | CORE | | + + + + + + | IG% | 0.0Comment: Increased | 0.0 - 1.0 % | [facility] | | | | immature granulocytes | | LABORATORY | | | | (IG) define a left | | SERVICES, | | | | shift. Immature | | CORE | | | | granulocytes (IG) are an | | | | | | automated count of | | | | | | metamyelocytes, | | [...] + + + + | NEUTROPHIL | 0.47 (L) | 1.80 - 7.70 | [facility] | | | # | | K/cu mm | LABORATORY | | | | | | SERVICES, | | | | | | CORE | | + + + + + + | LYMPHOCYTE | 0.59 (L) | 1.00 - 4.80 | [facility] | | | # | | K/cu mm | LABORATORY | | | | | | SERVICES, | | | | | | CORE | | + + + + + + | MONOCYTE # | 0.07 (L) | 0.10 - 0.90 | [facility] | | | | | K/cu mm | LABORATORY | | | | | | SERVICES, | | | | | | CORE | | + + + + + + | EOS # | 0.01 | 0.00 - 0.50 | [facility] | [...] + + + + | IG# | 0.00 | 0.00 - 0.10 | [...] the IG count. Bands are | SERVICES, CORE | | included in the neutrophil count. | | + + + + + + + + | Performing | Address | City/State/Zipcode | Phone Number | | Organization | | | | + + + + + | [facility] | [address] | [place] [address] | | | SERVICES, CORE | [address] | | | + + + + + PHOSPHORUS, PLASMA (01/15/2019 4:20 AM PDT) + +-------+ + + + [...] + | [facility] | [address] | [place] [address] | | | [place] | [address] | | | + + + + + MAGNESIUM, PLASMA (01/15/2019 4:20 AM PDT) + +-------+ + + + | Component | Value | Ref Range | Performed | Pathologist | | | | | At | Signature | + +-------+ + + + | MAGNESIUM,P | 2.1 | 1.6 - 2.6 mg/dL | [facility] [...] + | [facility] | [address] | [place] [address] | | | SERVICES, CORE | [address] | | | + + + + + COMPLETE METABOLIC SET (NA,K,CL,CO2,BUN,CREAT,GLUC,CA,AST,ALT,BILI TOTAL,ALK PHOS,ALB,PROT TOTAL) (01/15/2019 4:20 AM PDT) + + + + + + | Component | Value | Ref Range | Performed | Pathologist | | | | | At | Signature | + + + + + + | GLUCOSE, | 82 | 70 - 99 mg/dL | [facility] | | | PLASMA | | | LABORATORY | | | (LAB) | | | SERVICES, | | | | | | CORE | | + + + + + + | BUN, PLASMA | 6 | 6 - 20 mg/dL | [facility] | | | (LAB) | | | LABORATORY | | | | | | SERVICES, | | | | | | CORE | | + + + + + + | CREATININE | 0.50 (L) | 0.60 - 1.10 | [facility] | | | PLASMA | | mg/dL | LABORATORY | | | (LAB) | | | SERVICES, | | | | | | CORE | | + + + + + + | EGFR | >60 | >60 mL/min | [facility] | | | - | | | LABORATORY | | | [facility] | | | SERVICES, | | | [...] + + + + | POTASSIUM, | 3.0 (L) | 3.4 - 5.0 | [facility] | | | PLASMA | | mmol/L | LABORATORY | | | (LAB) | | | SERVICES, | | | | | | CORE | | + + + + + + | CHLORIDE, | 107 | 97 - 108 mmol/L | [facility] [...] + + + + | CALCIUM, | 8.3 (L) | 8.6 - 10.2 | [facility] | | | PLASMA | | mg/dL | LABORATORY | | | (LAB) | | | SERVICES, | | | | | | CORE | | + + + + + + | CALCIUM(ALB | 10.1 | 8.6 - 10.2 | [facility] | | | CORRECTED) | | mg/dL | LABORATORY | | | | | | SERVICES, | | | | | | CORE | | + + + + + + | BILIRUBIN | 0.3 | 0.3 - 1.2 mg/dL | [facility] | | | TOTAL | | | LABORATORY | | | | | | SERVICES, | | | | | | CORE | | + + + + + + | TOTAL | 5.6 (L) | 6.4 - 8.2 g/dL | [facility] | | | PROTEIN, | | | LABORATORY | | | PLASMA | | | SERVICES, | | | (LAB) | | | CORE | | + + + + + + | ALBUMIN, | 1.8 (L) | 3.5 - 4.7 g/dL | [...] + + + | ALT (SGPT) | 27 | <=60 U/L | [facility] | | [...] MDRD equation recommended by the National | [facility] | | Kidney Disease Education Program. Estimated [...] | + + + + + | [facility] | [address] | [place] [address] | | | SERVICES, CORE | [address] | | | + + + + + X-RAY CHEST 2 VIEW (01/14/2019 1:42 PM PDT) + + | Specimen | + + | | + + + + + | Narrative | Performed At | + + + | EXAM: CHEST 2 VIEWS HISTORY: Fever. Eval for pneumonia. Also | [facility] | | verify PICC placement. COMPARISON: None. FINDINGS: PA | RADIOLOGY VOICE | | and lateral chest radiograph obtained. Left upper extremity PICC tip | RECOGNITION 2 | | projects in the mid superior vena cava, approximately 5 cm above the | | | cavoatrial junction. Trace right greater than left pleural effusions | | | noted. Other than minimal bibasilar atelectasis, the lungs are clear. | | | There is no pulmonary edema. Right size is normal. Mediastinal | | | contours are normal. IMPRESSION: Left upper extremity PICC tip | | | in the mid superior vena cava, approximately 5 cm above the | | | cavoatrial junction. Right greater than left trace pleural | | | effusions with minimal bibasilar atelectasis. Lungs otherwise clear | | | with no evidence for pneumonia. I have personally reviewed the | | | images and, if necessary, edited the report. I agree with the report | | | as now presented. Final signature: David Sloan MD 01/14/2019 | | | 1:47 PM Preliminary: David Sloan MD Dictation initiated: | | | David Sloan MD 01/14/2019 1:45 PM | | + + + + + | Procedure Note | + + | Service Account, [facility] Res In Interface - 01/14/2019 1:48 PM PDT EXAM: CHEST 2 | | VIEWS HISTORY: Fever. Eval for pneumonia. Also verify PICC placement. COMPARISON: | | None. FINDINGS: PA and lateral chest radiograph obtained. Left upper extremity PICC tip | | projects in the mid superior vena cava, approximately 5 cm above the cavoatrial | | junction. Trace right greater than left pleural effusions noted. Other than minimal | | bibasilar atelectasis, the lungs are clear. There is no pulmonary edema. Right size is | | normal. Mediastinal contours are normal. IMPRESSION: Left upper extremity PICC tip in | | the mid superior vena cava, approximately 5 cm above the cavoatrial junction. Right | | greater than left trace pleural effusions with minimal bibasilar atelectasis. Lungs | | otherwise clear with no evidence for pneumonia. I have personally reviewed the images | | and, if necessary, edited the report. I agree with the report as now presented. Final | | signature: David Sloan MD 01/14/2019 1:47 PM Preliminary: David Sloan MD | | Dictation initiated: David Sloan MD 01/14/2019 1:45 PM | |Left upper extremity PICC tip in the mid superior vena cava, approximately 5 cm above the c avoatrial junction. | | | |Right greater than left trace pleural effusions with minimal bibasilar atelectasis. Lungs o therwise clear with no evidence for pneumonia. | | | |I have personally reviewed the images and, if necessary, edited the report. I agree with e report as now presented. | | | |Final signature: David Sloan MD 01/14/2019 1:47 PM | |Preliminary: David Sloan MD | |Dictation initiated: David Sloan MD 01/14/2019 1:45 PM | + + + +---------+ + + | Performing | Address | City/State/Zipcode | Phone Number | | Organization | | | | + +---------+ + + | [facility] | | | | | VOICE RECOGNITION 2 | | | | + +---------+ + + URINE, MICROSCOPIC EXAM (01/14/2019 1:32 PM PDT) + +-------+ + + + | Component | Value | Ref Range | Performed | Pathologist | | | | | At | Signature | + +-------+ + + + | RED CELLS | 8 (H) | 0 - 3 /hpf | [facility] | | | | | | LABORATORY | | | | | | SERVICES, | | | | | | CORE | | + +-------+ + + + | WHITE CELLS | 7 (H) | 0 - 5 /hpf | [facility] | | | | | | LABORATORY | | | | | | SERVICES, | | | | | | CORE | | + +-------+ + + + | BACTERIA | None | None /hpf | [facility] | | | | | | LABORATORY | | | | | | SERVICES, | | | | | | CORE | | + +-------+ + + + | YEAST (LAB) | None | None /hpf | [facility] | | | | | | LABORATORY | | | | | | SERVICES, | | | | | | CORE | | + +-------+ + + + | SQUAMOUS | Few | None, Few /hpf | [facility] | | | EPITHELIAL | | | LABORATORY | | | | | | SERVICES, | | | | | | CORE | | + +-------+ + + + | MUCOUS | Few | None, Few /hpf | [facility] | | | | | | LABORATORY | | | | | | SERVICES, | | | | | | CORE | | + +-------+ + + + | NON-SQUAMOU | None | None /hpf | [facility] | | | S EPITH | | | LABORATORY | | | | | | SERVICES, | | | | | | CORE | | + +-------+ + + + | HYALINE | 2 | 0 - 2 /lpf | [facility] | | | CASTS | | | LABORATORY | | | | | | SERVICES, | | | | | | CORE | | + +-------+ + + + | GRANULAR | 0 | 0 - 2 /lpf | [facility] | | | CASTS | | | LABORATORY | | | | | | SERVICES, | | | | | | CORE | | + +-------+ + + + | CELLULAR | 0 | <=0 /lpf | [facility] | | | CASTS | | | LABORATORY | | | | | | SERVICES, | | | | | | CORE | | + +-------+ + + + | TRIPLE P04 | None | None, Few /hpf | [facility] | | | CRYSTALS | | | LABORATORY | | | | | | SERVICES, | | | | | | CORE | | + +-------+ + + + | CALCIUM | None | None, Few /hpf | [facility] | | | OXALATE | | | LABORATORY | | | ANTONINA | | | SERVICES, | | | | | | CORE | | + +-------+ + + + | URIC ACID | None | None, Few /hpf | [facility] | | | CRYSTALS | | | LABORATORY | | | | | | SERVICES, | | | | | | CORE | | + +-------+ + + + | AMORPHOUS | None | None, Few /hpf | [facility] | | | CRYSTALS | | | LABORATORY | | | | | | SERVICES, | | | | | | CORE | | + +-------+ + + + + + | Specimen | + + | Urine - Urinary | | bladder structure | | (body structure) | + + + + + + + | Performing | Address | City/State/Zipcode | Phone Number | | Organization | | | | + + + + + | [facility] | [address] | [place] [address] | | | SERVICES, CORE | [address] | | | + + + + + JOSE MANUEL TRIPP ONLY (01/14/2019 1:32 PM PDT) + + + + + + | Component | Value | Ref Range | Performed | Pathologist | | | | | At | Signature | + + + + + + | COLOR(UR) | Donna | | [facility] | | | | | | LABORATORY | | | | | | SERVICES, | | | | | | CORE | | + + + + + + | APPEARANCE | Mod. Cloudy | | [facility] | | | | | | LABORATORY | | | | | | SERVICES, | | | | | | CORE | | + + + + + + | GLUCOSE(UR) | Negative | Negative, 50.0 | [facility] | | | | | mg/dL | LABORATORY | | | | | | SERVICES, | | | | | | CORE | | + + + + + + | PROTEIN(LAB | Negative | Negative, 30.0 | [facility] | | | ) | | mg/dL | LABORATORY | | | | | | SERVICES, | | | | | | CORE | | + + + + + + | BILIRUBIN | Negative | Negative | [facility] | | | | | | LABORATORY | | | | | | SERVICES, | | | | | | CORE | | + + + + + + | UROBILINOGE | <2.0 | <2.0 mg/dL | [facility] | | | N | | | LABORATORY | | | | | | SERVICES, | | | | | | CORE | | + + + + + + | PH(UR) | 5.0 | 5.0 - 8.0 | [facility] | | | | | | LABORATORY | | | | | | SERVICES, | | | | | | CORE | | + + + + + + | BLOOD | Negative | Negative | [facility] | | | | | | LABORATORY | | | | | | SERVICES, | | | | | | CORE | | + + + + + + | KETONES | 20.0 (A) | Negative mg/dL | [facility] | | | | | | LABORATORY | | | | | | SERVICES, | | | | | | CORE | | + + + + + + | NITRITES | Negative | Negative | [facility] | | | | | | LABORATORY | | | | | | SERVICES, | | | | | | CORE | | + + + + + + | LEUKOCYTE | Negative | Negative | [facility] | | | ESTERASE | | | LABORATORY | | | | | | SERVICES, | | | | | | CORE | | + + + + + + | SPECIFIC | 1.021Comment: Specific | 1.005 - 1.030 | [facility] | | | GRAVITY | Butner performed by | | LABORATORY | | | | refractometry | | SERVICES, | | | | | | CORE | | + + + + + + + + | Specimen | + + | Urine - Urinary | | bladder structure | | (body structure) | + + + + + + + | Performing | Address | City/State/Zipcode | Phone Number | | Organization | | | | + + + + + | [facility] | [address] | [place] [address] | | | SERVICES, CORE | [address] | | | + + + + + CULTURE, BLOOD BACTI & YEAST INSHELBY (01/14/2019 12:56 PM PDT) + + + + + + | Component | Value | Ref Range | Performed | Pathologist | | | | | At | Signature | + + + + + + | CULTURE | Final Report:No Bacteria | | [facility] | | | RESULT | or Yeast isolated at 5 | | LABORATORY | | | | days. | | [facility], | | | | | | CORE | | + + + + + + + + | Specimen | + + | Blood - Antecubital | | region structure | | (body structure) | + + + + + + + | Performing | Address | City/State/Zipcode | Phone Number | | Organization | | | | + + + + + | [facility] | [address] | [place] [address] | | | SERVICES, CORE | [address] | | | + + + + + RBC MORPHOLOGY (01/14/2019 12:27 PM PDT) + + + + + + | Component | Value | Ref Range | Performed | Pathologist | | | | | At | Signature | + + + + + + | DOHLE | Present | | [facility] | | | BODIES | | | LABORATORY | | | | | | SERVICES, | | | | | | CORE | | + + + + + + | TOXIC | Present | | [facility] | | | GRANULATION | | | LABORATORY | | | [...] + + + + | SCHISTOCYTE | 2+(3-10cells/HPF) | | [facility] | | | S | | | LABORATORY | | | | | | SERVICES, | | | | | | CORE | | + + + + + + | TEAR DROP | 1+ (<1-2cells/HPF) | | [facility] | | | CELLS [...] + + | [facility] | [address] | [place] [address] | | | SERVICES, CORE | [address] | | | + + + + + CULTURE, BLOOD BACTI & YEAST [facility] (01/14/2019 12:27 PM PDT) + + + + + [...] Specimen | + + | Blood - PICC red | | port | + + + + + + + | Performing | Address | City/State/Zipcode | Phone Number | | Organization | | | | + + + + + | [facility] | [address] | [place] [address] | | | SERVICES, CORE | [address] | | | + + + + + CBC AND AUTO DIFF (01/14/2019 12:27 PM PDT) + + + + + + | Component | Value | Ref Range | Performed | Pathologist | | | | | At | Signature | + + + + + + | WHITE CELL | 0.93 (L) | 3.50 - 10.80 | [facility] | | | COUNT | | K/cu mm | LABORATORY | | | | | | SERVICES, | | | | | | CORE | | + + + + + + | RED CELL | 2.73 (L) | 4.00 - 5.20 | [facility] | | | COUNT | | M/cu mm | LABORATORY | | | | | | SERVICES, | | | | | | CORE | | + + + + + + | HEMOGLOBIN | 8.1 (L) | 12.0 - 16.0 | [facility] | | | | | g/dL | LABORATORY | | | | | | SERVICES, | | | | | | CORE | | + + + + + + | HEMATOCRIT | 25.4 (L) | 36.0 - 46.0 % | [facility] | | | | | | LABORATORY | | | | | | SERVICES, | | | | | | CORE | | + + + + + + | MCV | 93.0 | 80.0 - 100.0 fL | [facility] [...] + + + | RDW SD | 55.0 (H) | 35.1 - 46.3 fL | [facility] | | | | | | LABORATORY | | | | | | SERVICES, | | | | | | CORE | | + + + + + + | PLATELET | 411 (H)Comment: Giant | 150 - 400 K/cu | [facility] | | | COUNT | platelets present. Macro | mm | LABORATORY | | | | platelets present. Few | | SERVICES, | | | | platelet clumps on | | CORE | | | | smear. | | | | + + + + + + | MPV | 10.7 | 9.7 - 12.3 fL | [facility] [...] + + + + | NEUTROPHIL | 50.4 | 50.0 - 70.0 % | [facility] | | | % | | | LABORATORY | | | | | | SERVICES, | | | | | | CORE | | + + + + + + | LYMPHOCYTE | 36.6 | 18.0 - 42.0 % | [facility] | | | % | | | LABORATORY | | | | | | SERVICES, | | | | | | CORE | | + + + + + + | MONOCYTE % | 10.8 (H) | 3.5 - 9.0 % | [...] + + + | IG% | 1.1 (H)Comment: | 0.0 - 1.0 % | [facility] | | | | Increased immature | | LABORATORY | | | | granulocytes (IG) define | | SERVICES, | | | | a left shift. Immature | | CORE | | | | granulocytes (IG) are | | | | | | an automated count of | | | | | | metamyelocytes, | | [...] + + + + | NEUTROPHIL | 0.47 (L) | 1.80 - 7.70 | [facility] | | | # | | K/cu mm | LABORATORY | | | | | | SERVICES, | | | | | | CORE | | + + + + + + | LYMPHOCYTE | 0.34 (L) | 1.00 - 4.80 | [facility] | | | # | | K/cu mm | LABORATORY | | | | | | SERVICES, | | | | | | CORE | | + + + + + + | MONOCYTE # | 0.10 | 0.10 - 0.90 | [facility] | [...] the IG count. Bands are | SERVICES, CORE | | included in the neutrophil count. | | + + + + + + + + | Performing | Address | City/State/Zipcode | Phone Number | | Organization | | | | + + + + + | [facility] | [address] | [place] [address] | | | SERVICES, CORE | [address] | | | + + + + + INR (01/14/2019 12:27 PM PDT) + + + + + + | Component | Value | Ref Range | Performed | Pathologist | | | | | At | Signature | + + + + + + | INR | 1.21 (H) | 0.90 - 1.20 INR | [facility] | | | | | | LABORATORY | | | | | | SERVICES, | | | | | | CORE | | + + + + + + + + | Specimen | + + | Blood - Blood | | (substance) | + + + + + | Narrative | Performed At | + + + | INR Therapeutic ranges for full anticoagulation: INR for Venous | [facility] | | Thromboembolism (2.0 - 3.0) INR INR for most | LABORATORY | | patients with mech. valves (2.5 - 3.5) INR | [facility] | + + + + + + + + | Performing | Address | City/State/Zipcode | Phone Number | | Organization | | | | + + + + + | [facility] | [address] | [place] [address] | | | SERVICES, [place] | [address] | | | + + + + + LDH TOTAL, PLASMA (01/14/2019 12:27 PM PDT) + +---------+ + + + | Component | Value | Ref Range | Performed | Pathologist | | | | | At | Signature | + +---------+ + + + | LD TOTAL, | 334 (H) | <=250 U/L | [facility] | [...] test. | LABORATORY | | | SERVICES, CORE | + + + + + + + + | Performing | Address | City/State/Zipcode | Phone Number | | Organization | | | | + + + + + | [facility] | [address] | [place] [address] | | | SERVICES, CORE | [address] | | | + + + + + BILIRUBIN DIRECT (01/14/2019 12:27 PM PDT) + +-------+ + + + | Component | Value | Ref Range | Performed | Pathologist | | | | | At | Signature | + +-------+ + + + | BILIRUBIN | <0.1 | 0.0 - 0.3 mg/dL | [facility] | | | DIRECT | | | LABORATORY | | | [...] + | [facility] | [address] | [place] [address] | | | SERVICES, CORE | [address] | | | + + + + + URIC ACID, PLASMA (01/14/2019 12:27 PM PDT) + +---------+ + + + | Component | Value | Ref Range | Performed | Pathologist | | | | | At | Signature | + +---------+ + + + | URIC ACID, | 2.3 (L) | 2.5 - 6.2 mg/dL | [facility] | | | PLASMA [...] | + + + + + | [facility] | [address] | [place] [address] | | | MENG, [place] | [address] | | | + + + + + PHOSPHORUS, PLASMA (01/14/2019 12:27 PM PDT) + +-------+ + + + | Component | Value | Ref Range | Performed | Pathologist | | | | | At | Signature | + +-------+ + + + | PHOSPHORUS, | 2.9 | 2.4 - 4.7 mg/dL | [facility] [...] + | [facility] | [address] | [place] [address] | | | SERVICES, CORE | [address] | | | + + + + + MAGNESIUM, PLASMA (01/14/2019 12:27 PM PDT) + +-------+ + + + | Component | Value | Ref Range | Performed | Pathologist | | | | | At | Signature | + +-------+ + + + | MAGNESIUM,P | 1.8 | 1.6 - 2.6 mg/dL | [facility] | | | LASMA | | | [...] | + + + + + | [facility] | [address] | [place] [address] | | | SERVICES, CORE | [address] | | | + + + + + COMPLETE METABOLIC SET (NA,K,CL,CO2,BUN,CREAT,GLUC,CA,AST,ALT,BILI TOTAL,ALK PHOS,ALB,PROT TOTAL) (01/14/2019 12:27 PM PDT) + + + + + + | Component | Value | Ref Range | Performed | Pathologist | | | | | At | Signature | + + + + + + | GLUCOSE, | 90 | 70 - 99 mg/dL | [facility] | | | PLASMA | | | LABORATORY | | | (LAB) | | | SERVICES, | | | | | | CORE | | + + + + + + | BUN, PLASMA | 5 (L) | 6 - 20 mg/dL | [facility] | | | (LAB) | | | LABORATORY | | | | | | SERVICES, | | | | | | CORE | | + + + + + + | CREATININE | 0.44 (L) | 0.60 - 1.10 | [facility] | | | PLASMA | | mg/dL | LABORATORY | | | (LAB) | | | SERVICES, | | | | | | CORE | | + + + + + + | EGFR | >60 | >60 mL/min | [facility] | | | - | | | LABORATORY | | | BELARUSIAN | | | SERVICES, | | | | | | CORE | | + + + + + + | EGFR NON | >60 | >60 mL/min | [facility] | | | -RENAE | | | LABORATORY | | | RICAN | | | SERVICES, | | | | | | CORE | | + + + + + + | SODIUM, | 138 | 136 - 145 | [facility] | [...] + + + + | CALCIUM, | 8.7 | 8.6 - 10.2 | [facility] | | | PLASMA | | mg/dL | LABORATORY | | | (LAB) | | | SERVICES, | | | | | | CORE | | + + + + + + | CALCIUM(ALB | 10.4 (H) | 8.6 - 10.2 | [facility] | | | CORRECTED) | | mg/dL | LABORATORY | | | | | | SERVICES, | | | | | | CORE | | + + + + + + | BILIRUBIN | 0.4 | 0.3 - 1.2 mg/dL | [facility] | | | TOTAL | | | LABORATORY | | | | | | SERVICES, | | | | | | CORE | | + + + + + + | TOTAL | 6.2 (L) | 6.4 - 8.2 g/dL | [facility] | | | PROTEIN, | | | LABORATORY | | | PLASMA | | | SERVICES, | | | (LAB) | | | CORE | | + + + + + + | ALBUMIN, | 1.9 (L) | 3.5 - 4.7 g/dL | [...] + + + + | AST(SGOT) | 29 | <=41 U/L | [facility] | | | | | | LABORATORY | | | | | | SERVICES, | | | | | | CORE | | + + + + + + | ALT (SGPT) | 28 | <=60 U/L | [facility] | | | | | | LABORATORY | | | | | | SERVICES, | | | | | | CORE | | + + + + + + | ANION GAP | 7 | 4 - 11 mmol/L | [facility] [...] + + + + | POTASSIUM | Sl Hemo | | [facility] | | | CMNT | | | LABORATORY | | | | | | SERVICES, | | | | | | CORE | | + + + + + + | AST CMNT | Sl Hemo | | [facility] [...] + + | Sample hemolyzed. Results for LD, K, and AST may be inaccurate. | [facility] | | Refer to comment under test. GFR is estimated using the MDRD | LABORATORY | | equation recommended by the National Kidney Disease Education Program. | SERVICES, CORE | | Estimated GFR Interpretive Information: <60 mL/min/1.73 sq m | | | Chronic Kidney Disease <15 mL/min/1.73 sq m | | | Kidney Failure Estimated GFR greater than 60 mL/min/1.73 | | | sq m is of limited clinical value. The MDRD equation is not valid in | | | the following situations: - Patients under 18 years of age - Severe | | | malnutrition or obesity - Vegetarian diet - Rapidly changing kidney | | | function - Amputees, paraplegics, or other muscle-wasting diseses | | + + + + + + + + | Performing | Address | City/State/Zipcode | Phone Number | | Organization | | | | + + + + + | [facility] | [address] | [place] [address] | | | SERVICES, CORE | [address] | | | + + + + + LAB REPORTS (01/14/2019 12:00 AM PDT) + + + | Narrative | Performed At | + + + | | | + + + documented in this encounter Visit Diagnoses + + | Diagnosis | + + | MDS (myelodysplastic syndrome) (HCC) - Primary Myelodysplastic syndrome, unspecified | + + | Herpes zoster with complication | + + documented in this encounter Administered Medications + +--------+ +--------+------+------+ | Medication Order | MAR | Action | Dose | Rate | Site | | | Action | Date | | | | + +--------+ +--------+------+------+ | acetaminophen (TYLENOL) tablet | Given | 01/16/20 | 650 mg | | | | 325-650 mg 325-650 mg, oral, | | 19 10:32 | | | | | EVERY 4 HOURS NEEDED, Starting | | PM PDT | | | | | 01/14/19 at 1140, Until Mon | | | | | | | 01/17/19 at 2333, mild pain, | | | | | | | fever, blood product | | | | | | | premedication | | | | | | + +--------+ +--------+------+------+ +-------+ +--------+---+---+ | Given | 01/16/20 | 650 mg | | | | | 19 2:17 | | | | | | PM PDT | | | | +-------+ +--------+---+---+ | Given | 01/16/20 | 650 mg | | | | | 19 4:08 | | | | | | AM PDT | | | | +-------+ +--------+---+---+ +---+---+ | | | +---+---+ + +---------+ +--------+---+---+ | acyclovir (ZOVIRAX) 650 mg in | | 01/16/20 | 650 mg | | | | NaCl 0.9 % (NS) IV 650 mg | | 19 2:14 | | | | | (rounded from 670 mg = 10 mg/kg | | PM PDT | | | | | | | | | | | | 67 kg Order-specific weight), | | | | | | | intravenous, EVERY 8 HOURS, First | | | | | | | dose on Thu01/14/19 at 1400, | | | | | | | Until Discontinued | | | | | | + +---------+ +--------+---+---+ +---------+ +--------+---+---+ | | 01/16/20 | 650 mg | | | | | 19 5:47 | | | | | | AM PDT | | | | +---------+ +--------+---+---+ | | 01/15/20 | 650 mg | | | | | 19 9:44 | | | | | | PM PDT | | | | +---------+ +--------+---+---+ + +---+ | | | + +---+ | alteplase (CATHFLO ACTIVASE) | | | injection 2 mg 2 mg, | | | Intracatheter, NEEDED, | | | Starting Thu01/14/19 at 1141, | | | Until 01/17/19 at 2333, | | | central catheter sluggishness | | + +---+ | | | + +---+ + +-------+ +-------+---+---+ | aluminum-magnesium | Given | 01/17/20 | 30 mL | | | | hydroxide-simethicone (MAALOX; | | 19 8:21 | | | | | MYLANTA) 200-200-20 mg/5 mL | | PM PDT | | | | | suspension 30 mL 30 mL, oral, | | | | | | | EVERY 3 HOURS NEEDED, Starting | | | | | | | 01/14/19 at 1140, Until Mon | | | | | | | 01/17/19 at 2333, gastrointestinal | | | | | | | upset | | | | | | + +-------+ +-------+---+---+ +-------+ +-------+---+---+ | Given | 01/17/20 | 30 mL | | | | | 19 12:14 | | | | | | PM PDT | | | | +-------+ +-------+---+---+ + +---+ | | | + +---+ | apixaban (ELIQUIS) tablet 2.5 | | | mg 2.5 mg, oral, TWICE DAILY, | | | First dose on Thu01/24/19 at | | | 2100, Until Discontinued | | + +---+ | | | + +---+ | apixaban (ELIQUIS) tablet 5 mg | | | 5 mg, oral, TWICE DAILY, 14 | | | doses, First dose on Thu01/17/19 | | | at 2100, Last dose on Thu01/24/19 | | | at 0900 | | + +---+ | | | + +---+ + +-------+ +-----+---+---+ | ceFEPIme (MAXIPIME) injection 2 | Given | 01/17/20 | 2 g | | | | g 2 g, intravenous, EVERY 8 | | 19 6:40 | | | | | HOURS, First dose on Thu01/14/19 | | AM PDT | | | | | at 1445, Until Discontinued | | | | | | + +-------+ +-----+---+---+ +-------+ +-----+---+---+ | Given | 01/16/20 | 2 g | | | | | 19 10:29 | | | | | | PM PDT | | | | +-------+ +-----+---+---+ | Given | 01/16/20 | 2 g | | | | | 2:14 | | | | | | PM PDT | | | | +-------+ +-----+---+---+ +---+---+ | | | +---+---+ + +-------+ +--------+---+---+ | celecoxib (CELEBREX) capsule | Given | 01/18/20 | 100 mg | | | | 100 mg 100 mg, oral, TWICE | | 19 10:44 | | | | | DAILY, First dose on Thu01/16/19 | | AM PDT | | | | | at 2100, Until Discontinued | | | | | | + +-------+ +--------+---+---+ +-------+ +--------+---+---+ | Given | 01/17/20 | 100 mg | | | | | 19 9:40 | | | | | | PM PDT | | | | +-------+ +--------+---+---+ + +---+ | | | + +---+ | | | | [id number]-CESCLW | | | (SPECIAL MOUTHWASH) suspension | | | (compound) 10-15 mL 10-15 mL, | | | oral, EVERY 1 HOUR NEEDED, | | | Starting Thu01/14/19 at 1140, | | | Until Thu01/17/19 at 2333, | | | oral/esophageal pain | | + +---+ | | | + +---+ + +-------+ +-------+---+---+ | escitalopram oxalate (LEXAPRO) | Given | 01/18/20 | 10 mg | | | | tablet 10 mg 10 mg, oral, DAILY, | | 19 10:46 | | | | | First dose on Thu01/14/19 at | | AM PDT | | | | | 1500, Until Discontinued | | | | | | + +-------+ +-------+---+---+ +-------+ +-------+---+---+ | Given | 01/17/20 | 10 mg | | | | | 19 8:19 | | | | | | AM PDT | | | | +-------+ +-------+---+---+ | Given | 01/16/20 | 10 mg | | | | | 19 8:43 | | | | | | AM PDT | | | | +-------+ +-------+---+---+ + +---+ | | | + +---+ | fentaNYL (SUBLIMAZE) injection | | | 25-50 mcg 25-50 mcg, | | | intravenous, EVERY 2 HOURS | | | NEEDED, Starting Thu01/17/19 at | | | 1129, Until Thu01/17/19 at 2333, | | | severe pain | | + +---+ | | | + +---+ | glycerin-mineral oil (LUBRIDERM | | | SENSITIVE LANOLIN FREE) lotion | | | topical, EVERY 2 HOURS NEEDED, | | | Starting 01/14/19 at 1140, | | | Until Thu01/17/19 at 2333, dry | | | skin | | + +---+ | | | + +---+ + +-------+ +--------+---+---+ | levoFLOXacin (LEVAQUIN) tablet | Given | 01/18/20 | 500 mg | | | | 500 mg 500 mg, oral, DAILY, | | 19 7:17 | | | | | First dose on Thu01/16/19 at | | AM PDT | | | | | 1230, Until Discontinued | | | | | | + +-------+ +--------+---+---+ +-------+ +--------+---+---+ | Given | 01/17/20 | 500 mg | | | | | 19 12:06 | | | | | | PM PDT | | | | +-------+ +--------+---+---+ + +---+ | | | + +---+ | loperamide (IMODIUM) capsule 2 | | | mg 2 mg, oral, NEEDED, | | | Starting 01/14/19 at 1140, | | | Until Thu01/17/19 at 2333, after | | | each loose stool | | + +---+ | | | + +---+ + +-------+ +------+---+---+ | LORazepam (ATIVAN) tablet 1 mg | Given | 01/18/20 | 1 mg | | | | 1 mg, oral, ONCE, 1 dose, Thu | | 19 1:21 | | | | | 01/17/19 at 1330 | | PM PDT | | | | + +-------+ +------+---+---+ + +---+ | | | + +---+ | magnesium sulfate in water IV | | | (RTU) 4 g 4 g, intravenous, | | | NEEDED, Starting Thu01/14/19 at | | | 1139, Until 01/17/19 at 2333, | | | Mg level 1.3-1.6 mg/dL | | + +---+ | | | + +---+ | magnesium sulfate IV 8 g 8 g, | | | intravenous, NEEDED, Starting | | | Thu01/14/19 at 1139, Until Mon | | | 01/17/19 at 2333, Mg level less | | | than or equal to 1.2 mg/dL | | + +---+ | | | + +---+ | menthol (sugar free) (COUGH | | | DROP) lozenge 5 mg 5 mg (1 | | | lozenge), oral, EVERY 1 HOUR | | | NEEDED, Starting Thu01/14/19 at | | | 1140, Until 01/17/19 at 2333, | | | mouth pain | | + +---+ | | | + +---+ | nystatin-zinc oxide-lidocaine | | | (NDX) ointment (compound) | | | topical, EVERY 1 HOUR NEEDED, | | | Starting Thu01/14/19 at 1140, | | | Until Thu01/17/19 at 2333, | | | perirectal area redness | | + +---+ | | | + +---+ | potassium chloride IV (central | | | line) 40 mEq 40 mEq, | | | intravenous, NEEDED, Starting | | | Thu01/14/19 at 1139, Until Mon | | | 01/17/19 at 2333, potassium level | | | of 3-3.4 mmol/L. Administer if | | | patient intolerant of oral | | | medications. | | + +---+ | | | + +---+ | potassium chloride IV (central | | | line) 60 mEq 60 mEq, | | | intravenous, NEEDED, Starting | | | Thu01/14/19 at 1139, Until Mon | | | 01/17/19 at 2333, potassium level | | | less than or equal to 2.9 mmol/L | | + +---+ | | | + +---+ + +-------+ +--------+---+---+ | potassium chloride SR (K-DUR) | Given | 01/17/20 | 40 mEq | | | | tablet 40 mEq 40 mEq, oral, | | 19 8:46 | | | | | NEEDED, Starting Thu01/14/19 at | | AM PDT | | | | | 1139, Until Thu01/17/19 at 2333, | | | | | | | potassium level 3-3.4 mmol/L | | | | | | + +-------+ +--------+---+---+ +-------+ +--------+---+---+ | Given | 01/16/20 | 40 mEq | | | | | 19 8:43 | | | | | | AM PDT | | | | +-------+ +--------+---+---+ + +---+ | | | + +---+ | potassium phosphate IV (CENTRAL | | | LINE) 30 mmol 30 mmol, | | | intravenous, NEEDED, Starting | | | Thu01/14/19 at 1139, Until Mon | | | 01/17/19 at 2333, Potassium less | | | than or equal to 3.4 mmol/L AND | | | Phosphate less than or equal to 2 | | | mg/dL | | + +---+ | | | + +---+ | potassium phosphate IV (CENTRAL | | | LINE) 40 mmol 40 mmol, | | | intravenous, NEEDED, Starting | | | 01/14/19 at 1139, Until Mon | | | 01/17/19 at 2333, Potassium less | | | than or equal to 2.9 mmol/L AND | | | Phosphate less than or equal to | | | 1.5 mg/dL. | | + +---+ | | | + +---+ | prochlorperazine (COMPAZINE) | | | tablet 5-10 mg 5-10 mg, oral, | | | EVERY 4 HOURS NEEDED, Starting | | | Thu01/14/19 at 1140, Until Mon | | | 01/17/19 at 2333, give as first | | | line agent for acute or delayed | | | nausea/vomiting | | + +---+ | | | + +---+ | ramelteon (ROZEREM) tablet 8 mg | | | 8 mg, oral, AT BEDTIME | | | NEEDED, Starting Thu01/14/19 at | | | 1140, Until Thu01/17/19 at 2333, | | | insomnia | | + +---+ | | | + +---+ | saliva substitute (MOUTH KOTE) | | | spray 1 spray 1 spray, oral, | | | EVERY 1 HOUR NEEDED, Starting | | | Thu01/14/19 at 1140, Until Mon | | | 01/17/19 at 2333, dry mouth | | + +---+ | | | + +---+ | senna-docusate (SENOKOT S) | | | 8.6-50 mg 1-2 tablet 1-2 tablet, | | | oral, EVERY 12 HOURS NEEDED, | | | Starting Thu01/14/19 at 1140, | | | Until Thu01/17/19 at 2333, | | | constipation | | + +---+ | | | + +---+ + +---------+ + + +---+ | sodium chloride 0.9 % (NS) IV | New Bag | 01/16/20 | 75 mL/hr | 75 mL/hr | | | infusion 75 mL/hr, intravenous, | | 19 8:46 | | | | | CONTINUOUS, Starting 01/14/19 | | PM PDT | | | | | at 1215, Until 01/16/19 at | | | | | | | 1046 | | | | | | + +---------+ + + +---+ +---------+ + + +---+ | New Bag | 01/16/20 | 75 mL/hr | 75 mL/hr | | | | 19 5:47 | | | | | | AM PDT | | | | +---------+ + + +---+ | New Bag | 01/15/20 | 75 mL/hr | 75 mL/hr | | | | 19 2:19 | | | | | | PM PDT | | | | +---------+ + + +---+ + +---+ | | | + +---+ | sodium phosphate IV 30 mmol 30 | | | mmol, intravenous, NEEDED, | | | Starting Thu01/14/19 at 1139, | | | Until Thu01/17/19 at 2333, | | | Administer for sodium level less | | | than 148 mmol/L AND phosphate | | | level 1.6-2 mg/dL. | | + +---+ | | | + +---+ | sodium phosphate IV 40 mmol 40 | | | mmol, intravenous, NEEDED, | | | Starting Thu01/14/19 at 1139, | | | Until Thu01/17/19 at 2333, | | | Administer for sodium level less | | | than 148 mmol/L AND phosphate | | | level less than or equal to 1.5 | | | mg/dL. | | + +---+ | | | + +---+ + +-------+ + +---+---+ | valACYclovir (VALTREX) tablet | Given | 01/18/20 | 1,000 mg | | | | 1,000 mg 1,000 mg (1 g), oral, | | 19 4:01 | | | | | THREE TIMES DAILY, First dose on | | PM PDT | | | | | 01/15/19 at 2200, Until | | | | | | | Discontinued | | | | | | + +-------+ + +---+---+ +-------+ + +---+---+ | Given | 01/18/20 | 1,000 mg | | | | | 19 10:45 | | | | | | AM PDT | | | | +-------+ + +---+---+ | Given | 01/17/20 | 1,000 mg | | | | | 19 9:40 | | | | | | PM PDT | | | | +-------+ + +---+---+ +---+---+ | | | +---+---+ + +-------+ +--------+---+---+ | voriconazole (VFEND) tablet 250 | Given | 01/18/20 | 250 mg | | | | mg 250 mg, oral, TWICE DAILY | | 19 4:01 | | | | | BEFORE MEALS, First dose on Sat | | PM PDT | | | | | 01/15/19 at 1700, Until | | | | | | | Discontinued | | | | | | + +-------+ +--------+---+---+ +-------+ +--------+---+---+ | Given | 01/18/20 | 250 mg | | | | | 19 7:16 | | | | | | AM PDT | | | | +-------+ +--------+---+---+ | Given | 01/17/20 | 250 mg | | | | | 19 5:04 | | | | | | PM PDT | | | | +-------+ +--------+---+---+ +---+---+ | | | +---+---+ + +-------+ +--------+---+---+ | voriconazole (VFEND) tablet 400 | Given | 01/16/20 | 400 mg | | | | mg 400 mg, oral, TWICE DAILY | | 19 6:45 | | | | | BEFORE MEALS, 2 doses, First dose | | AM PDT | | | | | on Thu01/14/19 at 1530, Last | | | | | | | dose on Thu01/15/19 at 0700 | | | | | | + +-------+ +--------+---+---+ +-------+ +--------+---+---+ | Given | 01/15/20 | 400 mg | | | | | 19 4:10 | | | | | | PM PDT | | | | +-------+ +--------+---+---+ +---+---+ | | | +---+---+ documented in this encounter
--- OUTSIDE RECORDS SUMMARY | ~2020-03-12 | XMS | Encounter Summary ---
Demographics + + + | Address | [address] | | | [place] [address] | + + + | Home Phone [...] Team Providers + +------+ + | Care Label Pinker Name | Role | Phone | + +------+ + | Meredith Sanchez | PCP | | + +------+ + Reason for Visit + +--------+ + | Reason | Onset | Comments | | | Date | | + +--------+ + | housing accomodation | 03/01/ | | | | 2018 | | + +--------+ + Encounter Details +--------+ + + + + | Date | Type | Department | Care Team | Description | +--------+ + + + + | 03/01/ | Telephone | SOCIAL WORK | [facility], | housing accomodation | | 2019 | | AM[facility] [address] [facility] | | | | | [address] | [address] | | | | | Mailcode: [id number] | [place], [place] | | | | | [place], [place] | [address] | | | | | [address] | | | | | | [phone] | | | +--------+ + + + [...] this encounter Miscellaneous Notes Telephone Encounter - Hayder Dick - 03/01/2019 4:44 PM PDTPatient meets all scre ening criteria for [facility] ([facility]) [facility] on-line screening intake completed and RPV eligibility effective date: 03/01/2019 Name of the adults (18 and over) screened: Patient; Claudia Leonardby, niece; Susan Junior , friend ADA/Service animal requirements indicated (please explain if yes): none Financial eligibility (full $50 payment or FA eligible): FA eligible Payment source: Medicaid Initial RPV reservation dates requested: 03/09/2019-03/11/2019; 03/22/2019-03/24/2019; 04/07/2019-07/08/2019 RPV reservation dates obtained: wait listed; family placement coord will call to confirm av ailability for requested dates Referral active until 03/01/2020 documented in this encounter Plan of Treatment Not on filedocumented as of this encounter Visit Diagnoses Not on filedocumented in this encounter"
--- OUTSIDE RECORDS SUMMARY | ~2020-03-12 | XMS | Encounter Summary ---
Demographics + + + | Address | [address] | | | [place] [address] | + + + | Home Phone [...] Providers + +------+ + | Care Head [employer] Name | Role | Phone | + +------+ + | Meredith Sanchez | PCP | | + +------+ + Encounter Details +--------+ + + + + | Date | Type | Department | Care Team | Description | +--------+ + + + + | 12/10/ | Hospital | [facility] [address] | | | | 2019 | Encounter | [address] | | | | | [address] [place], [place] | | | | | | [address] | | | +--------+ + + + [...]
--- OUTSIDE RECORDS SUMMARY | ~2020-03-12 | XMS | Encounter Summary ---
Demographics + + + | Address | [address] | | | [place] [address] | + + + | Home Phone [...] Providers + +------+ + | Care Assistant Manager Retail Name | Role | Phone | + +------+ + | Meredith Sanchez | PCP | | + +------+ + Reason for Visit + +--------+ + | Reason | Onset | Comments | | | Date | | + +--------+ + | Procedure | 03/02/ | | | | 2018 [...] | | Oncology / | | Sam, FAT PURIFICATION WORKER | Sam, FAT PURIFICATION WORKER | | | | Hematology | Myelodysplas | [address] | [address] | | | | Malignancy | tic | [place] | | | | | syndrome, | Rd | Rd [place], | | | | | unspecified | [place], [place] | [place] | | | | | Procedures | [address] | [address] | | | | | [place] BONE | Phone: | Phone: | | | | | MARROW; | [phone] | [phone] | | | | | ASPIRATION | Fax: | Fax: | | | | | ONLY NV | [phone] | [phone] | | | | | BONE MARROW | | | | | | | BX, | | | | | | | NEEDLE/TROCA | | | | | | | R NV DX | | | | | | | BONE MARROW | | | | | | | BX & ASPIR | | | + +--------+ + + + + Encounter Details +--------+---------+ + + + | Date | Type | Department | Care Team | Description | +--------+---------+ + + + | 03/10/ | Office | [facility] | Sam Baron FNP | 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 | Clinics at S | [address] [facility]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) | | | | [facility] [address] | [place], | | | | | [facility] | [place] [address] | | | | | Health and Healing, | [phone] | | | | | [address] | | | | | | [place], [place] | | | | | | [address] | | | | | | [phone] | | | +--------+---------+ + + + [...] Instructions Patient Instructions Sam Baron FNP - 03/10/2019 8:00 AM PDT Post bone marrow biopsy instructions. 1. Keep your dressing dry for the next 24 hours; no shower or bath until tomorrow. 2. If you notice any signs of infection at the biopsy site (redness, tenderness, drainage) , please call the Triage nurse at ([phone]) or BMT person on-call ([phone]) after hours. documented in this encounter Progress Notes Sam Baron FNP - 03/10/2019 8:00 AM PDT03/10/2019 Procedure Note Primary attending in [facility] clinic: Dr. Sejal De La Torre PCP: LACY Perez Procedure: Bone marrow aspirate and biopsy Indications: Analy Hopper is a 53 y.o. 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 F/up not yet scheduled. Bone marrow biopsy and aspiration procedure was performed using the following instruments: Description #1: [employer] Hot Sealing Machine Operator Serial ID #1: [id number] The MA for this procedure today was AMITA Shields. Mildred Wilson was the bone marrow tech for this procedure today. Description: Written consent for bone marrow aspirate and biopsy was obtained from the fuad ent following a brief discussion regarding the risks and benefits of the procedure. She was offered premedications and declined. She was placed in a prone position, with a pillow under her pelvis. The skin over her left posterior iliac crest was cleansed with betadine and virginia ped in a sterile manner. Xylocaine 1% was used for local anesthesia, approximately 14mL of X ylocaine was injected. A scalpel was used to enlarge the insertion site. An [employer] 4 in ch aspirate needle was inserted with the OnCDeltasight otr driver, and I felt the classic drop into the marrow space. The first aspirate was noted to have spicules and was submitted for morph ology studies. A second aspirate was obtained in a non-heparinized syringe and submitted f or Reflex FISH, flow cytometry and cytogenetics. A third aspirate was obtained in a non-hep arinized syringe and submitted for [employer]. A total of 7 mL of bone marrow was aspirate d. The Altia Systems[employer] 4 inch needle was advanced 2cm using the [employer] otr driver. A core biopsy measuring approximately 1.5 cm was obtained and submitted for morphology studies. Of note, the patient has a sensitive marrow space upon entering the marrow space past the c ortex and with the initial aspirate. She tolerated the subsequent aspiration w/o difficulty. Hemostasis was achieved and a pressure dressing [...] days. [facility] [address] [place] [address] Mailcode: [id number] [place] [address] documented in this enco unter Plan of Treatment Not on filedocumented as of this encounter Procedures + +--------+ + + + | Procedure Name | Priori | Date/Time | Associated Diagnosis | Comments | | | ty | | | | + +--------+ + + + | NV DX BONE MARROW BX | Routin | 03/10/2019 | MDS | | | & ASPIR | e | 8:37 AM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| PDT | syndrome) ([facility]) | | + +--------+ + + + | LEUKEMIA/LYMPHOMA | Routin | 03/10/2019 | MDS | Results for this | | MARKERS - BONE | e | 8:25 AM | (myelodysplastic | procedure are in the | | MARROW | | PDT | syndrome) ([facility]) | results section. | + +--------+ + + + | FLT3 ITD, BONE | Routin | 03/10/2019 | MDS | Results for this | | MARROW | e | 8:10 AM | (myelodysplastic | procedure are in the | | | | PDT | syndrome) ([facility]) | results section. | + +--------+ + + + | COMPREHENSIVE HEME | Routin | 03/10/2019 | MDS | Results for this | | PANEL SEQ, BONE | e | 8:10 AM | (myelodysplastic | procedure are in the | | MARROW | | PDT | syndrome) ([facility]) | results section. | + +--------+ + + + | GENETRAILS | Routin | 03/10/2019 | MDS | Results for this | | COMPREHENSIVE HEME | e | 8:10 AM | (myelodysplastic | procedure are in the | | PANEL, BONE MARROW | | PDT | syndrome) ([facility]) | results section. | + +--------+ + + + | CYTOGENETICS BONE | Routin | 03/10/2019 | MDS | Results for this | | MARROW CHROMOSOME | e | 8:10 AM | (myelodysplastic | procedure are in the | | ANALYSIS W/ REFLEX | | PDT | syndrome) ([facility]) | results section. 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 - | | | | | | Megaloblastoid change in | | | | | | myeloids - Mild | | | | | | drythroid dysplasia | | | | | | present - No increase | | | | | | in blasts, <2%. - Mild | | | | | | anisocytosis.Note: The | | | | | | mild dyspoietic changes | | | | | | present may represent | | | | | | treatment effect or | | | | | | residual myelodysplasia. | | | | | | Correlation with | | | | | | concurrent | | | | | | cytogenetic/FISH and | | | | | | molecular studies is | | | | | | recommended.Case seen | | | | | | by:Rickie Chakraborty MD - | | | | | | Hematopathology | | | | | | Vinnie Negron M.D., | | | | | | Ph.D. 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 Previous | | | | | | molecular analysis | | | | | | identified 4 Tier III | | | | | | mutations.CBC:Resulted | | | | | | Date and Time: | | | | | | 03/10/2019 0743 PDT | | | | | | | | | | | | | | | | | | Component Result | | | | | | Reference Range WHITE | | | | | | CELL COUNT 5.65 | | | | | | 3.50-10.80 K/cu mm RED | | | | | | CELL COUNT 4.44 | | | | | | 4.00-5.20 M/cu mm | | | | | | HEMOGLOBIN 13.3 | | | | | | 12.0-16.0 g/dL | | | | | | HEMATOCRIT 39.9 | | | | | | 36.0-46.0 % MCV 89.9 | | | | | | 80.0-100.0 fL MCHC 33.3 | | | | | | 32.0-36.0 g/dL RDW SD | | | | | | 48.6 35.1-46.3 fL | | | | | | PLATELET COUNT 306 | | | | | | 150-400 K/cu mm MPV 11.1 | | | | | | 9.7-12.3 [...] | | | | Range NEUTROPHIL % 68.6 | | | | | | 50.0-70.0 % LYMPHOCYTE % | | | | | | 23.4 18.0-42.0 % | | | | | | MONOCYTE % 3.9 3.5-9.0 % | | | | | | EOS % 2.5 1.0-3.0 % | | | | | | BASO % 1.1 0.0-2.0 % IG% | | | | | | 0.5 0.0-1.0 % | | | | | | NEUTROPHIL # 3.88 | | | | | | 1.80-7.70 K/cu mm | | | | | | LYMPHOCYTE # 1.32 | | | | | | 1.00-4.80 K/cu mm | | | | | | MONOCYTE # 0.22 | | | | | | 0.10-0.90 K/cu mm EOS # | | | | | | 0.14 0.00-0.50 K/cu mm | | | | | | BASO # 0.06 0.00-0.10 | | | | | | K/cu mm IG# 0.03 | | | | | | 0.00-0.10 K/cu mm | | | | | | PERIPHERAL BLOOD | | | | | | MORPHOLOGY:WBC: | | | | | | Unremarkable. No | | | | | | circulating blasts. RBC: | | | | | | Unremarkable. | | | | | | Platelets: Unremarkable. | | | | | | Normal granulation. No | | | | | | giant platelets | | | | | | identified. BONE MARROW | | | | | | ASPIRATE SMEARS:Quality: | | | | | | Adequate particles; | | | | | | good quality. Blasts: | | | | | | Not increased. Myeloids: | | | | | | Maturing and mild | | | | | | megaloblastoid changes | | | | | | present. Erythroids: | | | | | | Maturing and mild | | | | | | megaloblastic and | | | | | | dysplastic changes | | | | | | present. Megakaryocytes: | | | | | | Increased. Scattered | | | | | | clusters and hypolobate | | | | | | forms present. | | | | | | Lymphocytes: [...] | | | | | smears. Myeloids: 54% | | | | | | Erythroids: 40% Blasts: | | | | | | 1% Lymphocytes: 4% | | | | | | Plasma cells: 0% M:E | | | | | | Ratio: 1.4:1 Total cells | | | | | | counted: 200 BONE | | | | | | MARROW BIOPSY/CLOT | | | | | | SECTION:Quality: | | | | | | Adequate. Clot section | | | | | | contains particles. | | | | | | Cellularity: 50% | | | | | | Myeloids: Unremarkable. | | | | | | Erythroids: | | | | | | Unremarkable. | | | | | | Megakaryocytes: | | | | | | Increased with scattered | | | | | | clusters and hypolobate | | | | | | forms. Infiltrate: Not | | | | | | identified. FLOW | | | | | | CYTOMETRIC ANALYSIS: | | | | | | % of total WBC | | | | | | (CD45+)Myeloid Blasts <1 | | | | | | Monocytes 3 Lymphocytes | | | | | | 25 % of | | | | | | LymphocytesB-cells 10 | | | | | | T-cells 68 NK-cells 17 | | | | | | RatioKappa/Lambda | | | | | | 1.3:1 CD4/CD8 3.7:1 | | | | | | Summary: No increase in | | | | | | blasts; however, | | | | | | abnormal CD9 expression | | | | | | on myeloid blasts seen | | | | | | (<0.5%). T-cells and | | | | | | monocytes show no | | | | | | antigen aberrancy. | | | | | | Granulocytes show a | | | | | | normal maturation | | | | | | curve.Antibodies Tested | | | | | | CD2 CD3 CD4 CD5 CD7 CD8 | | | | | | CD10 CD11b CD13 CD14 | | | | | | CD15 CD16 CD19 CD20 CD23 | | | | | | CD25 CD33 CD34 CD38 CD9 | | | | | | CD45 CD56 CD64 CD103 | | | | | | CD117 CD123 IU469x | | | | | | HLA-DR Hernandezshantell Shah | | | | | | Immunohistochemistry | | | | | | stains: CD34 and CD117 | | | | | | stains were performed on | | | | | | biopsy and showed no | | | | | | increase in blasts | | | | | | (<2%). | | | | + + + [...] | | | | | was prepared. B: Bone | | | | | | Marrow Clot - 2.4 x 1.0 | | | | | | x 0.2 cmC. Bone Marrow | | | | | | Biopsy - 1.1 and 0.3 L x | | | | | | 0.3 D cm([facility]) | | | | + + + [...] | + + + + + | [facility] | [address] | [place] [address] | | | PATHOLOGY | [address] | | | + + + + + | [facility] | [address] | [place] [address] | | | [facility] | | | | | HEALTH + HEALING | | | | + + + + + FLT3 ITD, BONE MARROW (03/10/2019 8:10 AM PDT) + + + + + [...] | For the ITD assay | | [facility] | | | | performed in our [...] REFERENCES | 1. Amos Clifford | | [facility] | | | | THunter. Molecular | | DIAGNOSTIC | | | [...] Blood | | | | | | 2007;111:4785-7535. | | | | + + + + + + | DISCLAIMER | This test was developed | | [facility] | | | | and its performance | | DIAGNOSTIC | | | | characteristics | | | | | | determined by the [facility] | | LABORATORIE | | | | [facility] Diagnostic | | S | | [...] | | | | | Improvement Act 1988 | | | | | | (CLIA). [facility] | | | | | | Diagnostics | | | | | | Laboratories are fully | | | | | | licensed by the state of | | | | | | [place] under CLIA and | | | | | | are accredited by the | | | | | | [employer] | | | | | | Pathologists (CAP). | | | | | | Fountain Supervisor: | | | | | | Tayo [...] + + + | [facility] | [address] 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 but | | | | | | complicated by herpetic | | | | | | zoster infection.GENOMIC | | | | | | ALTERATIONSIn this | | | | | | post-treatment MDS bone | | | | | | marrow, there continues | | | | | | to be no | | | | | | somatically-acquired | | | | | | disease-associated | | | | | | mutation that can be | | | | | | definitively | | | | | | identified.The | | | | | | previously reported tier | | | | | | 3 variants (of unknown | | | | | | relevance)) in FAT1, | | | | | | FAT4, SETBP1 and KDM6A, | | | | | | each possibly of | | | | | | germline origin, persist | | | | | | at a similar allele | | | | | | frequency around 50% | | | | | | VAF.The evaluation of a | | | | | | non-hematopoietic sample | | | | | | (skin, buccal) would | | | | | | assist in determining | | | | | | more definitively | | | | | | whether these variants | | | | | | are indeed of germline | | | | | | origin. No new | | | | | | clinically significant | | | | | | variants are | | | | | | identified.Variant(s) of | | | | | | Unknown Significance | | | | | | (Tier III)Gene: | | | | | | GEE8Ndcfcbc: | | | | | | p.[id number] allele | | | | | | frequency (VAF): | | | | | | 48%Variant ID: | | | | | | [id number]; | | | | | | [id number], | | | | | | [id number] | | | | | | ([id number]):c.3929C>T; | | | | | | [id number]>ALast | | | | | | Observed: 01/17/2019; | | | | | | Allele frequency: | | | | | | 51%12/02/2018; Allele | | | | | | frequency: 46%Gene: | | | | | | FFH9Pbjlruz: | | | | | | p.[id number] allele | | | | | | frequency (VAF): | | | | | | 52%Variant ID: | | | | | | [id number]; | | | | | | [id number], | | | | | | [id number], | | | | | | [id number] | | | | | | (QMIH6351.3):c.75637V>A; | | | | | | [id number]>ALast | | | | | | Observed: 01/17/2019; | | | | | | Allele frequency: | | | | | | 49%12/02/2018; Allele | | | | | | frequency: 53%Gene: | | | | | | WSYBS5Hbtlpqs: | | | | | | p.Q359WUdgtcio allele | | | | | | frequency (VAF): | | | | | | 50%Variant ID: | | | | | | [id number] | | | | | | ([id number]):c.2267C>T; | | | | | | [id number]>TLast | | | | | | Observed: 01/17/2019; | | | | | | Allele frequency: | | | | | | 48%12/02/2018; Allele | | | | | | frequency: 50%Gene: | | | | | | TGX1RAcngiey: | | | | | | p.[id number] allele | | | | | | frequency (VAF): | | | | | | 51%Variant ID: | | | | | | [id number] | | | | | | ([id number]):c.494G>A; | | | | | | [id number]>ALast | | | | | | Observed: 01/17/2019; | | | | | | Allele frequency: | | | | | | 47%12/02/2018; Allele | | | | | | frequency: 50%Case | | | | | | reviewed by:Zelda | | | | | | KAYCEE Melgar(ASCP) CM | | | | | | /Molecular | | | | | | TechnologistRichard | | | | | | MD Tima, PhD/Molecular | | | | | | Genetic PathologistTest | | | | | | Details:This [...] | | | | | GSKIP HAX1 ORIV5E8E | | | | | | HNRNPK [...] PRKCB | | | | | | SQTZ83W PRPF8 PRPS1 | | | | | [...] | | | | | | SYNE1 YRA4JH2 TCF3 TCF4 | | | | | | TERC TERT TET2 TNFAIP3 | | | | | | DKTEAM94 TP53 TRAF3 | | | | | [...] of | | | | | | 3784. However, a small | | | | | | fraction (100 minus the | | | | | | percentage in the | | | | | | parenthesis) of the | | | | | | targeted regions of the | | | | | | following genes: KMT2A | | | | | | (99%), ASXL1 (99%), PCLO | | | | | | (99%), SPEN (99%), | | | | | | NOTCH2 (99%), SMARCA2 | | | | | | (99%), JAK1 (99%), | | | | | | ARID1B (99%), SETBP1 | | | | | | (99%), CD79A (98%), | | | | | | MAML1 (97%), FOXO1 | | | | | | (97%), BRD4 (94%), | | | | | | STAT5B (94%), SPI1 | | | | | | (94%), DTX1 (92%), KLF2 | | | | | | (91%), PMS2 (89%) have a | | | | | [...] | | | | | | (customized EMBI | | | | | | targeted DNA panel with | | | | | | molecular barcodes) and | | | | | | sequencing on an | | | | | | Illumina platform | | | | | | (NextCreativeLiveq 500 or 550). | | | | [...] ROUSE, et al; 2017, J | | [facility] | | | | Mol Diagn. | [...] 2017; | | | | | | 129(4):714-278.6. The | | | | | | 2016 revision to the WHO | | | | | | classification: Blood. | | | | | | 2016; 12720):3738-772. | | | | | | 7. [...] (CKB): | | | | | | https://ckb.[email or web address]/10. | | | | | | CIViC: | | | | | | https://civicdb.org/home | | | | + + + + + + | DISCLAIMER | This test was developed | | [facility] | | | | and its performance | | DIAGNOSTIC | | | | characteristics | | | | | | determined by the [facility] | | LABORATORIE | | | [...] | | | | | (CLIA). [facility] | | | | | | Diagnostics | | | | | | Laboratories are fully | | | | | | licensed by the state of | | | | | | [place] under CLIA and | | | | | | are accredited by the | | | | | | [employer] | | | | | | Pathologists (CAP). | | | | | | Fountain Supervisor: | | | | | | Tayo Singletary, | | | | | | Isabela, Ph.D.Reviewed | | | | | | and electronically | | | | | | signed by ZURDO Harrison | | | | | | MD TIMA,PhD03/27/2019 | | | | | | 11:23 PM | | | | + + [...] + + + | [facility] | [address] | [place] [address] | | | DIAGNOSTIC | [address] | | | | LABORATORIES | | | | + + + + + CYTOGENETICS BONE MARROW CHROMOSOME ANALYSIS W/ REFLEX FISH (03/10/2019 8:10 AM PDT) + + + + + [...] | | LABORATORIE | | | Analysis W/ | | | S | | | REFLEX | | | | | | FISH | | | | | + + [...] | | | | | for Referral: hx of | | | | | | mdsThe clinical | | | | | | interpretation was made | | | | | | by the clinical | | | | | | radial arm saw operator. | | | | + + + [...] | | | determined by the [facility] | | LABORATORIE | | | [...] | | | | | (CLIA). The [facility] | | | | | | Diagnostics | | | | | | Laboratories are fully | | | | | | licensed by the state of | | | | | | [place] under CLIA and | | | | | | are accredited by the | | | | | | [employer] | | | | | | Pathologists (CAP). | | | | | | Fountain Supervisor: | | | | | | Tayo Singletary, | | | | | | M.Hunter., | | | | | | Ph.D.Electronically | | | | | | reviewed and signed | | | | | | by:Chuy Acuna, PhD, | | | | | | FACMGClinical | | | | | | Fixing Machine Operator Clinical | | | | | | Molecular | | | | | | Geneticist03/16/2019 at | | | | | | 1:25 PMReviewed and | | | | | | electronically signed by | | | | | | CONG CINTRON, | | | | | | ,FACMG03/16/2019 6:20 | | | | | | PM [...] + + + | [facility] | [address] | [place] [address] | | | DIAGNOSTIC | [address] | | | | LABORATORIES | | | | + + + + + documented in this encounter Visit Diagnoses + + | Diagnosis | + + | MDS (myelodysplastic syndrome) (HCC) Myelodysplastic syndrome, unspecified | + + documented in this encounter"
--- OUTSIDE RECORDS SUMMARY | ~2020-03-12 | XMS | Encounter Summary ---
Demographics + + + | Address | [address] | | | [place] [address] | + + + | Home Phone [...] Team Providers + +------+ + | Care Electrotype Servicer Name | Role | Phone | + +------+ + | Meredith Sanchez | PCP | | + +------+ + Reason for Visit + +--------+ + | Reason | Onset | Comments | | | Date | | + +--------+ + | Social Work Notes | 03/01/ | | | | 2018 [...] | | | | | | [facility] | | | | | [facility], | | | | | | [address] | | | | | | [place], [place] | | | | | | [address] | | | | | | [phone] | | | +--------+ + + + [...] Notes Telephone Encounter - Elham Delcid - 03/01/2019 11:00 AM PDTRood Lodging Dates needed: 03/09 to 03/11 and 03/22 to 03/24 non kitchen room and 04/07 to 07/08 kitchen room Diagnosis: MDS Number of adults: 2 (pt and friend) Special needs: Note this isn't all scheduled in [facility] for pre transplant evals. Routed to [facility] pool: Ronald Mosley documented in this encounte r Plan of Treatment Not on filedocumented as of this encounter Visit Diagnoses Not on filedocumented in this encounter"
--- OUTSIDE RECORDS SUMMARY | ~2020-03-12 | XMS | Encounter Summary ---
Demographics + + + | Address | [address] | | | [place] [address] | + + + | Home Phone [...] Team Providers + +------+ + | Care Surveillance Agent Name | Role | Phone | + +------+ + | Meredith Sanchez | PCP | | + +------+ + Encounter Details +--------+ + + + + | Date | Type | Department | Care Team | Description | +--------+ + + + + | 01/03/ | Mold Shifter | [facility] | [facility] | 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 | | Clinics at S | N, DO [address]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) | | | | [facility] [address] | (Primary Dx) | | | | [facility] | [place], [place] | | | | | Health and Healing, | [address] | | | | | [address] | [phone] | | | | | [place], [place] | | | | | | [address] | | | | | | [phone] | | | +--------+ + + + [...]
--- OUTSIDE RECORDS SUMMARY | ~2020-03-12 | XMS | Encounter Summary ---
Demographics + + + | Address | [address] | | | [place] [address] | + + + | Home Phone [...] Team Providers + +------+ + | Care Splunk Architect Name | Role | Phone | + +------+ + | Meredith Sanchez | PCP | | + +------+ + Reason for Visit + + + | Reason | Comments | + + + | Infusion | | + + + Other (Routine) [...] | (myelodyspla | DO [address] | | | | | stic | Jon Valverde | [facility] for | | | | | syndrome) | [address] | Health and | | | | | (HCC) | [place], [place] | Healing, | | | | | | [address] | [address] | | | | | | Phone: | [place], [place] | | | | | | [phone] | [address] | | | | | | Fax: | Phone: | | | | | | [phone] | [phone] | | | | | | | Fax: | | | | | | | [phone] | + +--------+ + + + + Encounter Details +--------+ + + + + | Date | Type | Department | Care Team | Description | +--------+ + + + + | 08/04/ | Hospital | [facility] | Onc, Gen [address] | | | 2020 | Encounter | Clinics at S | Reji Callahan [place], | | | | | [facility] [address] | [place] [address] | | | | | [facility] | | | | | | Health and Healing, | | | | | | [address] | | | | | | [place], [place] | | | | | | [address] | | | | | | [phone] | | | +--------+ + + + [...] + + + | Blood Pressure | 161/82 | 08/04/2019 3:10 PM | | | | | PST | | + + + + + | Pulse | 79 | 08/04/2019 3:10 PM | | | | | PST | | + + + + + | Temperature | 36.9 C (98.4 F) | 08/04/2019 3:10 PM | | | | | PST | | + + + + + | Respiratory Rate | - | - | | + + + + + | Oxygen Saturation | 97% | 08/04/2019 3:10 PM | | | | | PST | | + + + + + | Inhaled Oxygen | - | - | | | Concentration | | | | + + + + + | Weight | 57.2 kg (126 lb 1.6 | 08/04/2019 3:10 PM | | | | oz) | PST | | + + + + + | Height | - | - | | + + + + + | Body Mass Index | 23.26 | 07/08/2019 4:32 PM | | | [...] documented as of this encounter Progress Notes Tarah Corona RN - 08/04/2019 2:40 PM PSTINFUSION NURSING NOTE Allergies: Nona is allergic to cefepime and sulfa (sulfonamide antibiotics). Nursing Assessment: Fever/Chills/Infection: No SOB / Cough: No Dizziness/Lightheaded/Fatigue: No Signs/Symptoms Bleeding: No Neuropathy: No Mucositis: No Nausea/Vomiting: No Appetite: good. Diarrhea/Constipation: No PO Fluid Intake: 2 liters Rash/Skin sores/Edema: No Urinary Issues: No Pain: No Narrative: Pt arrived for magnesium replacement after lab draw. Magnesium Sulfate 4 gm in 100 mL NS in fused over 2 hours per supportive care orders. NS 1L administered over 2 hours. PIV disconti nued. Discharged home in stable condition. Patient was reminded to call clinic with temp > 100.4, chills, s/s of bleeding or uncontrol led N/V/D/C. Patient d/c d ambulatory with self. documented in this en counter Plan of Treatment Not on filedocumented as of this encounter Procedures + +--------+ + + + | Procedure Name | Priori | Date/Time | Associated Diagnosis | Comments | | | ty | | | | + +--------+ + + + | G-6-PD (G6PD, | Routin | 08/04/2019 | MDS | Results for this | | QUANT), BLOOD | e | 3:59 PM | (myelodysplastic | procedure are in the | | | | PST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) | results section. | + +--------+ + + + documented in this encounter Results G-6-PD (G6PD, QUANT), BLOOD (08/04/2019 3:59 PM PST) + + + + + + | Component | Value | Ref Range | Performed | Pathologist | | | | | At | Signature | + + + + + + | G-6-PD | 17.7 (H)Comment: | 9.9 - 16.6 U/g | [facility] | | | | Jwtylld-1-hewqywadu | Hb | REG UNIV | | | | dehydrogenase activity | | PTH - [facility] | | | | that is greater than the | | | | | | reference interval is | | | | | | of no known clinical | | | | | | importance.Performed by | | | | | | [address] | | | | | [address], [facility] [place] | | | | | | [address] | | | | | | [phone]. | | | | | | Zeferino [...] [facility] | [address] | [place], [place] | | | UNIV PTH - INT[facility] | | [id number] | | + + + + + [...] in water IV | New Bag | 08/04/19 | 4 g | | | | (RTU) 4 g 4 g, intravenous, | | 20 3:25 | | | | | ONCE, 1 dose, Cheryl 08/04/19 at 1515 | | PM PST | | | | + +---------+ +------+------+------+ +---+---+ | | | +---+---+ + +---------+ + +---+---+ | sodium chloride (NS) 0.9 % | New Bag | 08/04/19 | 1,000 mL | | | | bolus 1,000 mL 1,000 mL, | | 20 3:25 | | | | | intravenous, NEEDED, Starting | | PM PST | | | | | Cheryl 08/04/19 at 1523, Until Cheryl | | | | | | | 08/04/19 at 2355, decreased po | | | | | | | intake, dizziness | | | | | | + +---------+ + +---+---+ +---+---+ | | | +---+---+ documented in this encounter"
--- OUTSIDE RECORDS SUMMARY | ~2020-03-12 | XMS | Encounter Summary ---
Demographics + + + | Address | [address] | | | [place] [address] | + + + | Home Phone [...] Team Providers + +------+ + | Care Tar Chaser Name | Role | Phone | + [...] stic | Jon Valverde | [address] [facility] | | | | | syndrome) | [address] | [facility], | | | | | (HCC) Lung | [place], [place] | 10th Floor | | | | | infiltrate | [address] | [facility] [place] | | | | | on CT | Phone: | [phone] | | | | | Immunocompro | [phone] | Phone: | | | | | mised state | Fax: | [phone] | | | | | due to drug | [phone] | Fax: | | | | | therapy S/P | | [phone] | | | | | cord blood | | | | | | | transplantat | | | | | | | ion | | | | | | | Procedures | | | | | | | CT CHEST WO | | | | | | | CONTRAST MT | | | | | | | CT | | | | | | | SCAN,THORAX, | | | | | | | W/O CONTRAST | | | +--------+--------+ + + + + Reason for Visit + + + | Reason | Comments | + + + | Referral | oreder for chest CT | + + + Encounter Details +--------+ + + + + | Date | Type | Department | Care Team | Description | +--------+ + + + + | 07/12/ | Wall Scraper | [facility] | Sejal nails | 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 | | Clinics at S | N, DO [address]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) | | | | [facility] [address] | (Primary Dx); Lung | | | | [facility] for | [place], [place] | infiltrate on CT; | | | | Health and Healing, | [address] | Immunocompromised | | | | Building [address] | [phone] | state due to drug | | | | [place], [place] | | therapy; S/P cord | | | | [address] | | blood | | | | [phone] | | transplantation | +--------+ + + + + Social [...] on filedocumented as of this encounter Results CT CHEST WO CONTRAST [...] now presented. Final signature: Marcela Arriaza | | Daphne Mcmillan MD 07/21/2019 4:26 PM Preliminary: Marcela Mcmillan MD | | | Dictation initiated: Marcela Mcmillan MD 07/21/2019 4:06 PM | | + + + + + | Procedure Note | + + | Service Account, [employer] In Interface - 07/21/2019 4:27 PM [...]
--- OUTSIDE RECORDS SUMMARY | ~2020-03-12 | XMS | Encounter Summary ---
Demographics + + + | Address | [address] | | | [place] [address] | + + + | Home Phone [...] Team Providers + +------+ + | Care Blogs Manager Name | Role | Phone | + +------+ + | Meredith Sanchez | PCP | | + +------+ + Reason for Visit + + + | Reason | Comments | + + + | Transplant follow-up | | + + + | GVHD - | | | Nzahd-ceahqy-typq | | | disease | | + + + Office Visit - E/M Services (Routine) + +--------+ + + + + | Status | Reason | Specialty | Diagnoses / | Referred By | Referred To | | | | | Procedures | Contact | Contact | + +--------+ + + + + | Authorized | | Hematology / | Diagnoses | [place], | Samarjoriez, | | | | Hematology | MDS | [place], | [place], | | | | Malignancy | (myelodyspla | DO [address] | DO [address] | | | | | stic | Jon Abram | Jon Abram | | | | | syndrome) | [address] | [address] | | | | | (HCC) | [place], [place] | [place], [place] | | | | | Procedures | [address] | [address] | | | | | [place] EST | Phone: | Phone: | | | | | PATIENT | [phone] | [phone] | | | | | LEVEL V | Fax: | Fax: | | | | | | [phone] | [phone] | + +--------+ + + + + Encounter Details +--------+---------+ + + + | Date | Type | Department | Care Team | Description | +--------+---------+ + + + | 02/22/ | Office | [facility] | Cathy Cornelius | GVHD (graft versus | | 2020 | Visit | Clinics at S | M, BOWLING ALLEY ATTENDANT [address] | host disease) (HCC) | | | | [facility] [address] | (Primary Dx) | | | | [facility] for | [place], [place] | | | | | Health and Healing, | [address] | | | | | [address] | [phone] | | | | | [place], [place] | | | | | | [address] | | | | | | [phone] | | | +--------+---------+ + + + [...] + + + | Blood Pressure | 155/75 | 02/23/2020 10:50 AM | | | | | PDT | | + + + + + | Pulse | 69 | 02/23/2020 10:50 AM | | | | | PDT | | + + + + + | Temperature | 37.1 C (98.7 F) | 02/23/2020 10:50 AM | | | | | PDT | | + + + + + | Respiratory Rate | 16 | 02/23/2020 10:50 AM | | | | | PDT | | + + + + + | Oxygen Saturation | 95% | 02/23/2020 10:50 AM | | | | | PDT | | + + + + + | Inhaled Oxygen | - | - | | | Concentration | | | | + + + + + | Weight | 66.1 kg (145 lb 12.8 | 02/23/2020 10:50 AM | | | | oz) | PDT | | + + + + + | Height | - | - | | + + + + + | Body Mass Index | 26.9 | 07/08/2019 4:32 PM | | | [...] Instructions Patient Instructions Cathy Cornelius NP - 02/23/2020 10:45 AM PDT1. Call the BMT clini c ([phone]) or BMT person on-call ([phone]) for: Any temp > 100.4 Nausea/vomiting unresponsive to anti-nausea medications Significant diarrhea despite Imodium Inability to drink at least 2 liters of fluid daily You develop a rash Bleeding 2. Continue tacrolimus 0.5mg once daily all days EXCEPT 3. Continue prednisone 10mg once daily 4. Plan for follow up by phone in 2 weeks and in-person visit in 4 weeks 5. Increase Coreg to 50mg twice daily, keep your losartan the same 6. For your left eye- continue using preservative free artifical tears, warm compresses twi ce daily. Please add back erythromycin ointment 4 times daily x3 days. Plan for monthly in-person visits at [facility]. At your next visit we would like to obtain a bon e density scan to ensure you do not have bone degeneration related to the prolonged steroid exposure. You will also be due for your one year bone marrow biopsy in March and we will r equest that with the March visit. Electronically signed by Cathy Cornelius NP at 02/22 12:02 PM PDT documented in this encounter Progress Notes Cathy Cornelius NP - 02/23/2020 10:45 AM PDT 02/23/20 - Day +307 post transplant [facility] Physician: Sejal De La Torre DO Local oncologist: Dr. Sequeira Hematologic Malignancy: MDS Conditioning regimen: FluCyTBI Date of transplant: 04/22/2019 Donor: CBU 1: [id number]/02 match, CBU 2: [id number]/02 match Research study: Kyle "[id number]: A Multicenter, Randomized, Phase III Registration Tr ial of Transplantation of NiCord, Ex Vivo Expanded, UCB-derived, Stem and Progenitor Cells , vs. Unmanipulated UCB for Patients With Hematological Malignancies". She was randomized to SOC arm. 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 --Jun. Moved to [place] ([facility]) -- 10/07/18 showed normal chemistries, Bilirubin [...] for D4-D7. 01/14-01/26/2019 admitted for zoster to [facility]. Vidaza held. 02/17/2019- seen at [facility] by Dr. De La Torre, no healthy siblings so cord blood is only option -consented to kyle "[id number]: A Multicenter, Randomized, Phase III Registration Tri wa of Transplantation of NiCord, Ex Vivo Expanded, UCB-derived, Stem and Progenitor Cells, vs. Unmanipulated UCB for Patients With Hematological Malignancies". She was randomized to SOC arm. --02/21-03/01 C3 aza.Tolerated well without complications. --04/15-05/18/2019 admitted to [facility] for planned flu/cy/tbi conditioned UCB on Gamida [...] for follow up post transplant. She is overall doing we ll since our last visit. She has improved stamina and continues to walk daily with her dog. She has noticed a decline in mood related to social isolation. She has not been able to see her family as she is trying to isolate and prevent infection from COVID-19. She does note im provement of her skin symptoms with mild areas of rash to her face, where her mask sits. She did have a skin biopsy last week that was inconclusive. Stitches to be removed today. She d enies any shortness of breath, she does have a history of smoking. Denies changes in appetit e. No nausea or vomiting. She does have urgency with BMs and has 608 small Bms daily. She burgos s not yet started imodium but does have some at home. She has not had a BM today. Review of Systems Constitutional: Negative for chills, fever, malaise/fatigue and weight loss. HENT: Negative for congestion, hearing loss, sinus pain, sore throat and tinnitus. Eyes: Negative for discharge and redness. Respiratory: Negative for cough and shortness of breath. Cardiovascular: Negative for chest pain, palpitations and orthopnea. Gastrointestinal: Positive for diarrhea (Occasional loose stools with urgency ). Negative f or abdominal pain, nausea and vomiting. Genitourinary: Negative for dysuria, frequency and urgency. Musculoskeletal: Negative for falls and myalgias. Skin: Positive for rash (around her mouth and cheeks, where her mask is). Negative for itch ing. Neurological: Positive for weakness (improved). Negative for dizziness and headaches. Endo/Heme/Allergies: Positive for environmental allergies. Does not bruise/bleed easily. Psychiatric/Behavioral: Positive for depression (due to social isolation, interested in cou nseling). The patient is not nervous/anxious. Current Medication List Name Sig CARVEDILOL 25 MG TABLET Take 2 tablets by mouth two times daily. Administer with food. Emma cations: high blood pressure DAPSONE 100 MG TABLET TAKE 1 TABLET [...] skin and rub in gently. Indications: skin bcvxn-kgblhh-pqqh disease LOSARTAN 25 MG TABLET Take 1 tablet by mouth once daily. MAGNESIUM OXIDE-MAGNESIUM AMINO ACID CHELATE 133 MG TABLET Take 2 tablets by mouth two time s daily. [id number]-[id number] 133 MG TABLET TAKE 2 TABLETS BY MOUTH 4 TIMES DAILY OMEPRAZOLE 40 MG CAPSULE,DELAYED RELEASE Take 1 capsule by mouth once daily. Administer 30 to 60 minutes before meals POSACONAZOLE 100 MG TABLET,DELAYED RELEASE Take 4 tablets by mouth once daily. Indications: prevention of fungal infection PREDNISONE 10 MG TABLET As of 01/26/20: Decrease to 15mg once //, 10 mg every other day TACROLIMUS 0.5 MG CAPSULE As of 02/13/20: Current dose is 0.5mg once daily except take noth ing on e, Cheryl, Sat. On days of your blood draws, do not take your morning dose but bring i t with you to take after your blood draw. Indications: GvHD. Indications: prevention of henry t versus host VALACYCLOVIR 500 MG TABLET Take 1 tablet by mouth two times daily. BP 155/75 (BP Location: Left upper arm, Patient Position: Sitting) | Pulse 69 | Temp 37.1 C (98.7 F) (Oral) | Resp 16 | Wt 66.1 kg (145 lb 12.8 oz) | SpO2 95% | BMI 26.90 kg /m | BSA 1.7 m Physical Exam Constitutional: She is oriented [...] time. Skin: Rash (erythematous, raised rash to face) noted. Psychiatric: She has a normal mood and affect. Laboratory Results: Lab Results Component Value Date WBC 5.04 02/23/2020 HB 9.8 02/23/2020 HCT 32.6 02/23/2020 PLT 115 02/23/2020 MCV 93.7 02/23/2020 RDW 53.8 02/23/2020 Chemistries: Last 72 Hours (or 3 results) - Refreshable Invalid input(s): EGFRNONAFRCR Bone marrow aspirate, clot section, core biopsy [...] cord (Day 0=04/22/19) She is enrolled in Anneida "[id number]: A Multicenter, Randomized, Phase III Registration Trial [...] no prior mutations were det ected on [employer]. Her engraftment studies show 100% donor #2 [...] she has improve d skin and no new symptoms. -Prednisone: wean pred 10 mg on 02/09/20, continue this until off tacrolimus -Tacrolimus, initiated taper on 02/12 and now on 0.5mg once daily four days weekly, will co ntinue this dose for now -Hydrocortisone BID to facial rash Kyle Simpson phase 3 (IRB 82821) Acute GVHD Staging Complete on study visit [...] mL diarrhea/day 2 25-50% BSA 3.1-6 mg/dL 4856-0544 mL diarrhea/day 3 >50% BSA Generalized erythroderma [...] GVHD Scoring: Day 100, 180, 270, 365 [facility] [address] Score 1(skin) Performance Scoring Not Present 0 [...] PFTs scheduled at end of the month -PFTs completed today (02/22) and shows decrease in DLCO to 59%, will follow up PFTs again i n 3 months. -Consider fluticasone if symptomatic 3. ID: Recent admission for colitis and s/p Cirpo/Flagyl x7 days through 07/19/19. Continue prophylactic antimicrobials with Valtrex (recent hx HSV, will continue through Day +365), po saconazole and dapsone (allergy to Sulfa). Of note, patient is toxo negative. -Per cord protocol: Check EBV and HHV6 monthly and PRN. No hx of viremia -Continue posaconazole, RNC working on MAP Vaccinations: Influenza vaccine administered 07/28/19 and Prevnar#1 administered on 07/28/19. Conjunctivitis, R>L: Eye redness with increased watering and discharge which has improved. -Erythromycin ointment QID x4 days -Warm compresses TID 4. HTN: Increase Coreg 50mg BID and Losartan 25mg daily 5. SAM -peaked at Cr 1.15. improving likely related CNI. Renal US normal. 6. FEN: Labs reviewed and electrolytes WNL. Continue oral mag and potassium replacements. 7. GI: Risk of gastritis: Continue omeprazole 40 mg daily 6. Pysch: Worsening depression related to social isolation. #Depression: Continue Lexapro 20 mg PO daily, CLEANING CUSTODIAN to reach out regarding counseling options in her area 8. MSK: Deconditioning post transplant with right foot drop and leg weakness, R>L. This is improving overtime. -Continue strength training exercises and walking at home 9. Derm: s/p biopsy on 02/12 with inconclusive results -- Continue gentle skin care, agree with liberal Vaseline as a moisturizer -- Advised patient to avoid application of topical steroids to her forearms (where ecchymo ses are) given evidence of skin atrophy secondary to chronic prednisone -- For affected areas on the trunk and extremities, apply triamcinolone 0.1% ointment twic e daily for two weeks, then decrease to twice weekly. -- For affected areas on the face, groin, and skin folds, apply hydrocortisone ointment tw ice daily for up to 10 days, then decrease to twice weekly. Patient Instructions 1. Call the BMT clinic ([phone]) or BMT person on-call ([phone]) for: Any temp > 100.4 Nausea/vomiting unresponsive to anti-nausea medications Significant diarrhea despite Imodium Inability to drink at least 2 liters of fluid daily You develop a rash Bleeding 2. Continue tacrolimus 0.5mg once daily all days EXCEPT Tu-Th-Sa 3. Continue prednisone 10mg once daily 4. Plan for follow up by phone in 2 weeks and in-person visit in 4 weeks 5. Increase Coreg to 50mg twice daily, keep your losartan the same 6. For your left eye- continue using preservative free artifical tears, warm compresses twi ce daily. Please add back erythromycin ointment 4 times daily x3 days. Plan for monthly in-person visits at [facility]. At your next visit we would like to obtain a bon e density scan to ensure you do not have bone degeneration related to the prolonged steroid exposure. You will also be due for your one year bone marrow biopsy in March and we will r equest that with the March visit. Cathy Cornelius NP [facility] AT [address] [facility], [address] [address] documented in thi s encounter Plan of Treatment + +---------+--------+ + + | Name | Type | Priori | Associated Diagnoses | Order Schedule | | | | ty | | | + +---------+--------+ + + | BONE DENSITOMETRY | Imaging | Routin | GVHD (graft versus | Expected: | | | | e | host disease) ([facility]) | 02/23/2020, Expires: | | | | | | 03/25/2021 | + +---------+--------+ + + documented as of this encounter Visit Diagnoses + + | Diagnosis | + + | 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
--- OUTSIDE RECORDS SUMMARY | ~2020-03-12 | XMS | Encounter Summary ---
Demographics + + + | Address | [address] | | | [place] [address] | + + + | Home Phone [...] Providers + +------+ + | Care Commercial Specialist Name | Role | Phone | + +------+ + | Meredith aSnchez | PCP | | + +------+ + [...] | | | | | (HCC) | [place], [place] | [place], [place] | | | | | Procedures | [address] | [address] | | | | | [place] | Phone: | Phone: | | | | | OFFICE/OUTPT | [phone] | [phone] | | | | | | Fax: | Fax: | | | | | VISIT,VENKATESH,LE | [phone] | [phone] | | | | | VL IV | | | +--------+--------+ + + + + Encounter Details +--------+---------+ + + + | Date | Type | Department | Care Team | Description | +--------+---------+ + + + | 05/31/ | Office | [facility] | Apple Bergeron, | 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 | Clinics at S | [place] [address]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) | | | | [place] [address] | (Primary Dx); S/P | | | | [facility] for | [place], [place] | cord blood | | | | Health and Healing, | [address] | transplantation | | | | Building [address] | [phone] | | | | | [place], [place] | | | | | | [address] | | | | | | [phone] | | | +--------+---------+ + + + [...] Instructions Patient Instructions Apple Bergeron PA - 05/31/2019 11:40 AM PST-Take your temperature regularly (3-4 x daily) and to call immediately for a temperature of 100.4 or greater. -We'll call you to adjust your Tacrolimus if necessary. documented in this encounter Progress Notes Apple Bergeron PA - 05/31/2019 11:40 AM PSTFormatting of this note might be different f rom the original. 05/31/2019 [facility] Physician: Sejal De La Torre DO Local oncologist: Dr. Sequeira Hematologic Malignancy: MDS Conditioning regimen: FluCyTBI Date of transplant: 04/22/2019 Donor: CBU 1: [id number]/02 match, CBU 2: [id number]/02 match Research study: Ruperto "[id number]: A Multicenter, Randomized, Phase III Registration [facility] of Transplantation of NiCord, Ex Vivo Expanded, [...] s howing dropping counts. --Jun. Moved to [place] ([facility]) -- 10/07/18 showed normal chemistries, Bilirubin 1.4, [...] for D4-D7. 01/14-01/26/2019 admitted for zoster to [facility]. Vidaza held. 02/17/2019- seen at [facility] by Dr. De La Torre, no healthy siblings so cord blood is only option -consented to gamida "[id number]: A Multicenter, Randomized, Phase III Registration Tri de of Transplantation of NiCord, Ex Vivo Expanded, UCB-derived, Stem and Progenitor Cells, vs. Unmanipulated UCB for Patients With Hematological Malignancies". She was randomized to SOC arm. --02/21-03/01 C3 aza.Tolerated well without complications. --04/15-05/18/2019 admitted to [facility] for planned flu/cy/tbi conditioned UCB on Gamida study (SOC arm). 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 Nona Hopper is a 53 y.o. female with hx of MDS, currently day +39, s/p Flu/cy/TBI co nditioned URD cord on gamida trial -on SOC arm. Interval History: Comes to clinic today for her routine scheduled visit. She is accompanied by her caregiver. She is doing well overall but remains very fatigued with absolutely no energy. She has mil d nausea associated with pills and is using compazine. Her appetite is improving a little a nd she's been eating 3 small meals/day and drinking ~1.5-2L/day. Taste alterations remain p resent. Denies diarrhea, rash or fevers. Does note new headaches which are pretty mild and not associated with photophobia, vision c hanges, etc. She's also having difficulty sleeping, has been waking up ~12:30 AM and not ab le to go back to sleep for several hours. Review of Systems: General: Denies fevers, chills, weight loss or sweats. +fatigue ENT: +headaches Denies changes in vision or double vision. Denies hearing loss, nosebleeds, nasal congestion, difficulty swallowing, hoarseness or sore throat. Respiratory: Denies shortness of breath, coughing up blood, excessive sputum, cough, chest discomfort or wheezing. Cardiovascular: No chest pain, lightheadedness,shortness of breath. Gastrointestinal: Denies indigestion, vomiting, + nausea-occ, constipation, abdominal pain, diarrhea, bloody stools or dark tarry stools. Musculoskeletal: No joint pain, swelling, stiffness, back pain, arthritis, muscle aches or muscle cramps. Skin: Denies rash. Psychological: +insomnia No abnormal anxiety, depression. Remainder of ROS [...] Vitals: BP Readings from Last 1 Encounters: 05/31/19 112/62 Pulse Readings from Last 1 Encounters: 05/31/19 79 Resp Readings from Last 1 Encounters: 05/31/19 17 Wt Readings from Last 1 Encounters: 05/31/19 61.2 kg (135 lb) Temp Readings from Last 1 Encounters: 05/31/19 36.4 C (97.6 F) (Oral) There is no height or [...] 72 hours (or 3 results) Recent Labs 05/31/19 1029 WBC 2.22* HB 7.6* HCT 22.5* PLT 36* NEUTROPERC 43.7* LYMPHPERC 12.6* MONOPERC 36.0* BASOPERC 0.5 EOSPERC 5.4* Chemistries: Last 72 Hours (or 3 results): Recent Labs 05/27/19 0918 05/29/19 1045 05/31/19 1029 NA 131* 132* 130* K 3.4 3.8 3.2* CL 95* 97 96* BICARB 23 25 24 BUN 27* 23* 19 CR 1.88* 1.40* 1.24* GLU 169* 110* 125* CA 9.4 9.1 9.1 AST 11 14 15 ALT 14 14 16 AP 106* 114* 108* TBILI 0.6 0.5 0.6 TP 6.7 6.6 6.7 ALB 3.4* 3.4* 3.5 ANIONGAP 13* 10 10 ANIONALBCOR 14* 11 11 Lab Results Component Value Date MG 1.4 05/31/2019 Hematology: Hematologic Malignancy: MDS Conditioning Regimen: FluCyTBI Research study: Ruperto "[id number]: A Multicenter, Randomized, Phase III Registration Trial [...] 10 6 per kg Stem Cell Day: +39 Post-transplant: -Day +21 chimerism ordered per study: 100% donor #2 CD33, CD56, CD3 and CD19 insufficient for analysis -BM Bx to be completed on day +30, day +100, 6 months, and 1 year post-transplant -Day +30 BMBX completed on 05/25 -Results -Marrow result visit with Dr. De La Torre scheduled for 06/16/19 -Around day + 60, we will return her to her primary attending with our BMT service, Dr. Sa nails; first appointment scheduled for 06/16 CBC reviewed and reveals pancytopenia. ANC 510 [...] time, there is no evidence of acute bspsi-heplsd-tutk disease of the skin, gut, or liver. Prophylaxis/Treatment: Prophylaxis with tacrolimus and MMF per Ruperto protocol -Tacrolimus startedD-3 (goal 5-15) -MMF 1 gm PO TID D-3 to D+35 (to stop on 06/21/2019) Acute GvHD Staging: Skin: stage 0 Gut: stage 0 Liver: stage 0 Overall Grade: 0 Ruperto Simpson phase 3 (IRB 53166) Acute GVHD Staging Complete on study visit [...] mL diarrhea/day 2 25-50% BSA 3.1-6 mg/dL 1500-0799 mL diarrhea/day 3 >50% BSA Generalized erythroderma [...] months ofanticoagulationwith apixiban, end date 04/14/19. HTN, SWATCH FOLDER: home regimen, triamterene/HCTZ. -s/p Lisinopril 5 mg [...] visit. Psych: Insomnia: -Ramelteon ordered on 05/31, LACY pending Depression:Stable, continue home SSRI. -Lexapro 20 mg [...] Lab Results Component Value Date CMVQUANTPCR Undetected 05/27/2019 CMVQUANTPCR Undetected 05/24/2019 CMVQUANTPCR Undetected 05/20/2019 CMVQUANTPCR Undetected 05/16/2019 Antifungal: Posaconazole for antifungal prophylaxis through day [...] per supportive care protocol. -HypoMg / CNI: replace in clinic Plan: -Mg sulfate 4g IV today. -Zarxio 300 mcg SC x 1 today. -The tacrolimus dose will be adjusted when the tacrolimus trough is available. -F/u BMBX results -Tramadol 50 mg q 6 hrs PRN headache -Ramelteon for sleep. PA pending. -Return to clinic 06/03 to see me, sooner prn. LACY Rutledge [facility] [address] Mailcode: [place] [address] documented in this encounter Plan of Treatment Not on filedocumented as of this encounter Results TACROLIMUS, WHOLE BLOOD (06/03/2019 9:32 AM PST) [...] | Test performed by immunoassay using [employer] Instructor i2000. . | [facility] | | [...] | + + + + + | [facility] | [address] | [place] [address] | | | SERVICES, SPECIAL | PARK [...] fold may not reflect true | [facility] | | biological changes and must [...] | | | characteristics determined by the [facility] | | | Molecular Diagnostic Center. It has not been cleared or approved by | | | the Food and Drug Administration. FDA approval is not required for | | | clinical use of this test, and therefore validation was done as | | | required under the requirements of the Clinical Laboratory Improvement | | | Act of 1988. The [facility] | | | Diagnostic Center is a fully licensed and/or accredited clinical | | | laboratory under CLIA, [facility], and the [facility]. | | + + + + + + + + | Performing | Address | City/State/Zipcode | Phone Number | | Organization | | | | + + + + + | [facility] | [address] | [place] [address] | | | DIAGNOSTIC | [address] [...]
--- OUTSIDE RECORDS SUMMARY | ~2020-03-12 | XMS | Encounter Summary ---
Demographics + + + | Address | [address] | | | [place] [address] | + + + | Home Phone [...] Team Providers + +------+ + | Care L Tacker Name | Role | Phone | + +------+ + | Meredith Sanchez | PCP | | + +------+ + Encounter Details +--------+ + + + + | Date | Type | Department | Care Team | Description | +--------+ + + + + | 06/02/ | Therapist Respiratory | [facility] | Sejal De La Torre | Hx of allogeneic | | 2019 | | Clinics at S | N, DO [address] [facility] [address] [facility] | stem cell transplant | | | | [place] [address] | ([facility]) (Primary Dx) | | | | [facility] for | [place], [place] | | | | | Health and Healing, | [address] | | | | | Building 2 | [phone] | | | | | [place], [place] | | | | | | [address] | | | | | | [phone] | | | +--------+ + + + [...] + | CHIMERISM SORTED | Routin | 10/04/2019 | Hx of allogeneic | Results for this | | CELLS, DNA, BLOOD | e | 3:53 PM | stem cell transplant | procedure are in the | | (KDL) | | PDT | (HCC) | results section. | + +--------+ + + + | CHIMERISM SORTED | Routin | 10/04/2019 | Hx of allogeneic | Results for this | | CELLS, DNA, BLOOD | e | 3:53 PM | stem cell transplant | procedure are in the | | | | PDT | (HCC) | results section. | + +--------+ + + + documented in this encounter Results CHIMERISM SORTED CELLS, DNA, BLOOD (KDL) (10/04/2019 3:53 PM PDT) + + + + + + | Component | Value | Ref Range | Performed | Pathologist | | | | | At | Signature | + + + + + + | CHIMERISM | No Host Detected | | [facility] | | | SORTED | | | DIAGNOSTIC | | | CELLS, DNA, | | | | | | BLOOD | | | LABORATORIE | | | | | | S | | + + + + + + | INTERPRETAT | Updated donor genders | | [facility] | | | ION | on 10.20.2019. No | | DIAGNOSTIC | | | | change to technical | | | | | | content or | | LABORATORIE | | | | interpretation.Donor | | S | | | | #1 Name/ID: [facility] | | | | | | [id number] Gender: | | | | | | MaleDonor #2 Name/ID: | | | | | | [facility] [id number] | | | | | | Gender: FemaleDate of | | | | | | Transplant: | | | | | | 04/22/2019Chimerism | | | | | | Results (Sorted | | | | | | Cells):CD3+ T-cells: 0% | | | | | | Host; 100% Donor #2 | | | | | | ([facility] [id number] ); No | | | | | | Detectable Donor # 1 | | | | | | (NMDP [id number])CD33+ | | | | | | Myeloid cells: 0% Host; | | | | | | 100% Donor #2 (NMDP | | | | | | [id number]); No | | | | | | Detectable Donor #1 | | | | | | (NMDP [id number])Sorted | | | | | | Cell Purity (Reported | | | | | | by the [facility] Special | | | | | | Immunology | | | | | | Laboratory):CD3+ = | | | | | | 150,000 cells; 99% | | | | | | mpbxEU71+ = 18,000 | | | | | | cells; >70% | | | | | | purePCR-based [...] METHOD(S) | The laboratory received | | [facility] | | | | specimens from the [...] | | | | | | loci [id number], [id number], | | | | | | R5N990, CSF1PO, [id number], | | | | | | THO1, R75I021, [id number], | | | | | | [id number], H06H406, vWA, | | | | | | TPOX, D18S51, C5W254, | | | | | | FGA [...] | | | | determined by the [facility] | | LABORATORIE | | | | [...] | | | | | (CLIA). The [facility] | | | | | | Diagnostics | | | | | | Laboratories are fully | | | | | | licensed by the state of | | | | | | [place] under CLIA and | | | | | | are accredited by the | | | | | | [employer] | | | | | | Pathologists (CAP). | | | | | | Automobile Rental Agent: | | | | | | Tayo Singletary, | | | | | | Leeanne., Ph.DReviewed | | | | | | and electronically | | | | | | signed by ZURDO Harrison | | | | | | MD MENDEZ,PhD4 | | | | | | 11:54 PM | | | | + + + + + + + + | Specimen | + + | Blood - Blood | | (substance) | + + + + + + + | Performing | Address | City/State/Zipcode | Phone Number | | Organization | | | | + + + + + | [facility] | [address] | [place] [address] | | | DIAGNOSTIC | [address] | | | | LABORATORIES | | | | + + + + + CHIMERISM SORTED CELLS, DNA, BLOOD (10/04/2019 3:53 PM PDT) + +---------+ + + + [...] +---------+ + + + | CELLS | 18,000 | | [facility] | | | SORTED - 2 | | | LABORATORY | | | | | | SERVICES, | | | | | | SPECIAL IMM | | | | | | + COAG | | + +---------+ + + + | PURITY - 2 | >70.0 | % | [facility] | | | [...] | + + + + + | [facility] | [address] | [place] [address] | | | SERVICES, SPECIAL | [address] | | | | IMM + COAG | | | | + + + + + documented in this encounter Visit Diagnoses + + | Diagnosis | + + | 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
--- OUTSIDE RECORDS SUMMARY | ~2020-03-12 | XMS | Encounter Summary ---
Demographics + + + | Address | [address] | | | [place] [address] | + + + | Home Phone [...] Team Providers + +------+ + | Care Insurance Examining Clerk Name | Role | Phone | + +------+ + | Meredith Sanchez | PCP | | + +------+ + Encounter Details +--------+--------+ + + + | Date | Type | Department | Care Team | Description | +--------+--------+ + + + | 07/14/ | Travel | | | | | [...]
--- OUTSIDE RECORDS SUMMARY | ~2020-03-12 | XMS | Encounter Summary ---
Demographics + + + | Address | [address] | | | [place] [address] | + + + | Home Phone [...] Team Providers + +------+ + | Care Pest Management Supervisor Name | Role | Phone | + +------+ + | Meredith Sanchez | PCP | | + +------+ + Encounter Details +--------+ + + + + | Date | Type | Department | Care Team | Description | +--------+ + + + + | 07/20/ | Coding Support Specialist | [facility] | Sejal De La Torre | S/P cord blood | | 2020 | | Clinics at S | N, DO [address] | transplantation | | | | [place] [address] | (Primary Dx) | | | | [facility] for | [place], [place] | | | | | Health and Healing, | [address] | | | | | [address] | [phone] | | | | | [facility] [place] | | | | | | [address] | | | | | | [phone] | | | +--------+ + + + [...] on filedocumented as of this encounter Results CHIMERISM SORTED CELLS, DNA, BLOOD (07/21/2019 9:56 AM PST) + +---------+ + + + [...] +---------+ + + + | CELLS | 55,000 | | [facility] | | | SORTED - 1 | | | LABORATORY | | | | | | SERVICES, | | | | | | SPECIAL IMM | | | | | | + COAG | | + +---------+ + + + | PURITY - 1 | 95.0 | % | [facility] | | | [...] +---------+ + + + | ANTIBODY | CD19 | | [facility] | | | SORTED - 3 | | | LABORATORY | | | | | | SERVICES, | | | | | | SPECIAL IMM | | | | | | + COAG | | + +---------+ + + + | CELLS | 13,000 | | [facility] | | | SORTED - 3 | | | LABORATORY | | | | | | SERVICES, | | | | | | SPECIAL IMM | | | | | | + COAG | | + +---------+ + + + | PURITY - 3 | 96.0 | % | [facility] | | | | | | LABORATORY | | | | | | SERVICES, | | | | | | SPECIAL IMM | | | | | | + COAG | | + +---------+ + + + | ANTIBODY | CD56 | | [facility] | | | SORTED - 4 | | | LABORATORY | | | | | | SERVICES, | | | | | | SPECIAL IMM | | | | | | + COAG | | + +---------+ + + + | CELLS | 26,000 | | [facility] | | | SORTED - 4 | | | LABORATORY | | | | | | SERVICES, | | | | | | SPECIAL IMM | | | | | | + COAG | | + +---------+ + + + | PURITY - 4 | 96.0 | % | [facility] | | | [...] + + + + + | [facility] | [address] | [place] [address] | | | SERVICES, SPECIAL | PARK [...]
--- OUTSIDE RECORDS SUMMARY | ~2020-03-12 | XMS | Encounter Summary ---
Demographics + + + | Address | [address] | | | [place] [address] | + + + | Home Phone [...] Team Providers + +------+ + | Care Paper Sales Representative Name | Role | Phone | + +------+ + | Meredith Sanchez | PCP | | + +------+ + Encounter Details +--------+ + + + + | Date | Type | Department | Care Team | Description | +--------+ + + + + | 03/09/ | Hospital | Radiology/Imaging | Sejal De La Torre | | | 2019 | Encounter | Lab at [facility] [address] | N, DO [address] [facility] | | | | | [place] for | [facility] | | | | | Health and Healing, | [place], [place] | | | | | [place] [address] [address] | [address] | | | | | Floor [place], [place] | [phone] | | | | | [address] | | | | | | [phone] | | | +--------+ + + + [...] X-RAY CHEST 2 VIEW | Routin | 03/09/2019 | MDS | Results for this | | | e | 12:02 PM | (myelodysplastic | procedure are in the | | | | PDT | syndrome) ([facility]) | results section. | + +--------+ + + + documented in this encounter Results X-RAY CHEST 2 VIEW (03/09/2019 12:02 PM [...] the report as now presented. Final signature: Arsalan Fonseca | 03/09/2019 2:37 PM Preliminary: Kris Abdalla MD Dictation initiated: Kris | | MD Rm 03/09/2019 12:21 PM | | | |The [...]
--- OUTSIDE RECORDS SUMMARY | ~2020-03-12 | XMS | Encounter Summary ---
Demographics + + + | Address | [address] | | | [place] [address] | + + + | Home Phone [...] Team Providers + +------+ + | Care Net Applications Developer Name | Role | Phone | + +------+ + | Meredith Sanchez | PCP | | + +------+ + Encounter Details +--------+ + + + + | Date | Type | Department | Care Team | Description | +--------+ + + + + | 01/26/ | Pharmacy | Outpatient Retail | | | | 2019 | Visit | [facility] Pharmacy | | | | | | [address] | | | | | | Loop [place], [place] | | | | | | [address] | | | | | | [phone] | | | +--------+ + + + [...]
--- OUTSIDE RECORDS SUMMARY | ~2020-03-12 | XMS | Encounter Summary ---
Demographics + + + | Address | [address] | | | [place] [address] | + + + | Home Phone [...] Team Providers + +------+ + | Care Photostat Operator Helper Name | Role | Phone | + +------+ + | Meredith Sanchez | PCP | | + +------+ + Encounter Details +--------+ + + + + | Date | Type | Department | Care Team | Description | +--------+ + + + + | 11/10/ | Telephone | [facility] | Sejal De La Torre | | | 2019 | | Clinics at S | N, DO [address] | | | | | [place] [address] | | | | | [facility] [place] for | [place], [place] | | | | | Health and Healing, | [address] | | | | | [address] | [phone] | | | | | [place], [place] | | | | | | [address] | | | | | | [phone] | | | +--------+ + + + [...] this encounter Miscellaneous Notes Telephone Encounter - Leonides Li - 11/11/2019 8:13 AM PDTPlease send the labs from 11/[address] Sequeira's office, pt has an appt today with him. ATTN to Savanna: Please ensure that labs are being sent to Dr. Sequeira's office when done at [facility] as she is doing local follow up there as well. Thank you, D documented in this en counter Plan of Treatment Not on filedocumented as of this encounter Visit Diagnoses Not on filedocumented in this encounter"
--- OUTSIDE RECORDS SUMMARY | ~2020-03-12 | XMS | Encounter Summary ---
Demographics + + + | Address | [address] | | | [place] [address] | + + + | Home Phone [...] Author + + + | Author | [facility] | + + + | Organization | [facility] | + + + | Address | Unknown | + + + | Phone | Unavailable | + + + Support + + +---------+ + | Name | Relationship | Address | Phone | + + +---------+ + | Claudia Cota | ECON | Unknown | | + + +---------+ + Care Team Providers + +------+ + | Care Forging Machine Operator Name | Role | Phone | + +------+ + | Meredith Sanchez | PCP | | + +------+ + Reason for Visit + +--------+ + | Reason | Onset | Comments | | | Date | | + +--------+ + | Refill Request | 12/19/ | escitalopram | | | 2020 | | + +--------+ + Encounter Details +--------+--------+ + + + | Date | Type | Department | Care Team | Description | +--------+--------+ + + + | 12/19/ | Refill | [facility] | Sejal De La Torre | Refill Request | | 2020 | | Clinics at S | N, DO [address] | (escitalopram ) | | | | [place] [address] [facility] | | | | | [facility] for | [place], [place] | | | | | Health and Healing, | [address] | | | | | [address] | [phone] | | | | | [place], [place] | | | | | | [address] | | | | | | [phone] | | | +--------+--------+ + + + [...] Telephone Encounter - Tayo Osborne MA - 12/20/2019 2:13 PM PDTFormatting of this no te might be different from the original. [facility] [place] [facility] Phone #: [phone] De La Torre was on 11/17/19. Pt has no scheduled appts. Per last OV: "We will schedule VV in 2 weeks and labs locally " Last LIP progress note reviewed. Is there documentation to indicate that medication being r equested has been changed or discontinued? No Allergy list reviewed--Is the medication being requested on the patient's current allergy l ist? No Previous Prescription Details copied below: Date and Time Department Ordering/Authorizing 05/18/2019 3:16 PM [facility] 14K ELIECER Yoo Outpatient Medication Detail Disp Refills escitalopram oxalate 20 mg oral tablet 30 tablet 5 Sig: Take 1 tablet by mouth once daily. Indications: major depressive disorder Sent to pharmacy as: escitalopram 20 mg tablet (LEXAPRO) Class: eRx Route: oral Order: [id number] Per [facility] policy, routing encounter to [facility] for review and approval. documented in this encounter Plan of Treatment Not on filedocumented as of this encounter Visit Diagnoses Not on filedocumented in this encounter
--- OUTSIDE RECORDS SUMMARY | ~2020-03-12 | XMS | Encounter Summary ---
Demographics + + + | Address | [address] | | | [place] [address] | + + + | Home Phone [...] Team Providers + +------+ + | Care Material Liaison Name | Role | Phone | + +------+ + | Meredith Sanchez | PCP | | + +------+ + Encounter Details +--------+ + + + + | Date | Type | Department | Care Team | Description | +--------+ + + + + | 07/12/ | Pharmacy | Outpatient Retail | | | | 2019 | Visit | Clinic Pharmacy | | | | | | [address] | | | | | | [address] [place], [place] | | | | | | [address] | | | | | | [phone] | | | +--------+ + + + [...]
--- OUTSIDE RECORDS SUMMARY | ~2020-03-12 | XMS | Encounter Summary ---
Demographics + + + | Address | [address] | | | [place] [address] | + + + | Home Phone | | + + + | Preferred Language | Unknown | + + + | Marital Status | Single | + + + | Bahai Affiliation | NRP | + + + [...] Team Providers + +------+ + | Care Legal Recruiter Name | Role | Phone | + +------+ + | Meredith Sanchez | PCP | | + +------+ + Encounter Details +--------+ + + + + | Date | Type | Department | Care Team | Description | +--------+ + + + + | 01/11/ | MyChart | [facility] | Sejal De La Tor[facility] | RE: Picture of eye | | 2020 | Encounter | [facility] | N, DO [address] | | | | | [facility] [address] | | | | | [facility] | [place], [place] | | | | | Health and Healing, | [address] | | | | | [address] | [phone] | | | | | [place], [place] | | | | | | [address] | | | | | | [phone] | | | +--------+ + + + [...]
--- OUTSIDE RECORDS SUMMARY | ~2020-03-12 | XMS | Encounter Summary ---
Demographics + + + | Address | [address] | | | [place] [address] | + + + | Home Phone [...] Providers + +------+ + | Care Heel Lift Gouger Name | Role | Phone | + +------+ + | Meredith Sanchez | PCP | | + +------+ + Encounter Details +--------+ + + + + | Date | Type | Department | Care Team | Description | +--------+ + + + + | 10/18/ | Telephone | [facility] | Sejal De La Torre | | | 2019 | | [facility] | N, DO [address] | | | | | [place] [address] | | | | | [facility] | [place], [place] | | | | | Health and Healing, | [address] | | | | | [address] | [phone] | | | | | [place], [place] | | | | | | [address] | | | | | | [phone] | | | +--------+ + + + [...]
--- OUTSIDE RECORDS SUMMARY | ~2020-03-12 | XMS | Encounter Summary ---
Demographics + + + | Address | [address] | | | [place] [address] | + + + | Home Phone [...] Providers + +------+ + | Care Supervisor Counseling And Guidance Name | Role | Phone | + +------+ + | Meredith Sanchez | PCP | | + +------+ + Encounter Details +--------+ + + + + | Date | Type | Department | Care Team | Description | +--------+ + + + + | 08/01/ | Pharmacy | Pharmacy @ [facility] | | | | 2019 | Visit | [address] | | | | | | [place] [address] Mailcode: | | | | | | [facility] | | | | | | and Healing, | | | | | | [address] | | | | | | [place], [place] | | | | | | [address] | | | +--------+ + + + [...]
--- OUTSIDE RECORDS SUMMARY | ~2020-03-12 | XMS | Encounter Summary ---
Demographics + + + | Address | [address] | | | [place] [address] | + + + | Home Phone [...] Team Providers + +------+ + | Care Serologist Name | Role | Phone | + +------+ + | Meredith Sanchez | PCP | | + +------+ + Encounter Details +--------+ + + + + | Date | Type | Department | Care Team | Description | +--------+ + + + + | 06/06/ | Pharmacy | Specialty Pharmacy | | | | 2019 | Visit | Services [address] | | | | | [address] | | | | | | [place], [place] | | | | | | [address] | | | | | | [phone] | | | +--------+ + + + [...]
--- OUTSIDE RECORDS SUMMARY | ~2020-03-12 | XMS | Encounter Summary ---
Demographics + + + | Address | [address] | | | [place] [address] | + + + | Home Phone [...] Team Providers + +------+ + | Care Business Systems Lead Name | Role | Phone | + +------+ + | Meredith Sanchez | PCP | | + +------+ + Encounter Details +--------+ + + + + | Date | Type | Department | Care Team | Description | +--------+ + + + + | 03/14/ | Hospital | [facility] | | | | 2019 | Encounter | [facility]ics at S | | | | | | [facility] [address] | | | | | | [address] [facility] | | | | | [facility], | | | | | | [address] | | | | | | [place], [place] | | | | | | [address] | | | | | | [phone] | | | +--------+ + + + [...] | + +--------+ + + + | HEPATITIS A AB, IGG | Routin | 03/14/2019 | MDS | Results for this | | | e | 11:27 AM | (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 | + +--------+ + + + | INFECT DISEASE | Urgent | 03/14/2019 | MDS | Results for this | | MARKER PANEL | | 11:27 AM | (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 | + +--------+ + + + | CBC AND AUTO DIFF | Routin | 03/14/2019 | MDS | Results for this | | | e | 11:27 AM | (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 | + +--------+ + + + | LIT - HLA | Routin | 03/14/2019 | MDS | | | VERIFICATION TYPING | e | 11:27 AM | (myelodysplastic | | | CLASS II | | PDT | syndrome) ([facility]) | | + +--------+ + + + | LIT - HLA | Routin | 03/14/2019 | MDS | | | VERIFICATION TYPING | e | 11:27 AM | (myelodysplastic | | | CLASS I | | PDT | syndrome) ([facility]) | | + +--------+ + + + | CONFIRMATORY ABO/RH | Routin | 03/14/2019 | MDS | Results for this | | | e | 11:27 AM | (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 | + +--------+ + + + | LIT FLOW HLA AB PRA | Routin | 03/14/2019 | MDS | | | SCREEN I/II | e | 11:27 AM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| PDT | syndrome) ([facility]) | | + +--------+ + + + | LIT FLOW HLA I AB AG | Routin | 03/14/2019 | MDS | Results for this | | ID, BLOOD | e | 11:27 AM | (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 | + +--------+ + + + | ENGRAFTMENT | Routin | 03/14/2019 | MDS | Results for this | | PRE-TRANSPLANT, | e | 11:27 AM | (myelodysplastic | procedure are in the | | BLOOD | | PDT | syndrome) ([facility]) | results section. | + +--------+ + + + | INR | Routin | 03/14/2019 | MDS | Results for this | | | e | 11:27 AM | (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 | + +--------+ + + + | CBC, WITH | Routin | 03/14/2019 | MDS | Results for this | | DIFFERENTIAL | e | 11:27 AM | (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 | + +--------+ + + + | VARICELLA ZOSTER | Routin | 03/14/2019 | MDS | Results for this | | IGG, SERUM | e | 11:27 AM | (myelodysplastic | procedure are in the | | | | PDT | syndrome) ([facility] | results section. | + +--------+ + + + | HSV ANTIBODY, SERUM | Routin | 03/14/2019 | MDS | Results for this | | | e | 11:27 AM | (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 | + +--------+ + + + | VERITO LORENZO VIRUS | Routin | 03/14/2019 | MDS | Results for this | | PANEL, SERUM | e | 11:27 AM | (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 | + +--------+ + + + | COMPLETE METABOLIC | Routin | 03/14/2019 | MDS | Results for this | | SET | e | 11:27 AM | (myelodysplastic | procedure are in the | | (NA,K,CL,CO2,BUN,CRE | | PDT | syndrome) ([facility]) | results section. | | AT,GLUC,CA,AST,ALT,B | | | | | | TI TOTAL,ALK | | | | | | PHOS,ALB,PROT TOTAL) | | | | | + +--------+ + + + | APTT (ACT. PART. | Routin | 03/14/2019 | MDS | Results for this | | THROMBO TIME) | e | 11:27 AM | (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 | + +--------+ + + + | ANTIBODY SCREEN | Routin | 03/14/2019 | MDS | Results for this | | | e | 11:27 AM | (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 | + +--------+ + + + | ABO & RH TYPE | Routin | 03/14/2019 | MDS | Results for this | | | e | 11:27 AM | (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 | + +--------+ + + + | TOXOPLASMA IGG AB, | Routin | 03/14/2019 | MDS | Results for this | | SERUM | e | 11:27 AM | (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 | + +--------+ + + + | PHOSPHORUS, PLASMA | Routin | 03/14/2019 | MDS | Results for this | | | e | 11:27 AM | (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 | + +--------+ + + + | HEPATITIS A AB IGM, | Routin | 03/14/2019 | MDS | Results for this | | SERUM | e | 11:27 AM | (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 | + +--------+ + + + | HEPATITIS B SURFACE | Routin | 03/14/2019 | MDS | Results for this | | AB QUAL, SERUM | e | 11:27 AM | (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 | + +--------+ + + + | BILIRUBIN DIRECT | Routin | 03/14/2019 | MDS | Results for this | | | e | 11:27 AM | (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 | + +--------+ + + + | URIC ACID, PLASMA | Routin | 03/14/2019 | MDS | Results for this | | | e | 11:27 AM | (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 | + +--------+ + + + | MAGNESIUM, PLASMA | Routin | 03/14/2019 | MDS | Results for this | | | e | 11:27 AM | (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 | + +--------+ + + + | LDH TOTAL, PLASMA | Routin | 03/14/2019 | MDS | Results for this | | | e | 11:27 AM | (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 | + +--------+ + + + | CHOLESTEROL TOTAL, | Routin | 03/14/2019 | MDS | Results for this | | PLASMA | e | 11:27 AM | (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 | + +--------+ + + + documented in this encounter Results LIT FLOW HLA I AB AG ID, BLOOD (03/14/2019 11:27 AM PDT) + + + + + + | Component | Value | Ref Range | Performed | Pathologist | | | | | At | Signature | + + + + + + | LABEL ONLY | Please see lab report | | [facility] - | | | - LIT | for result. | | [facility] | | | | | | ICS/TRANSPL | | | | | | ANT | | | | | | LABORATORY | | + + + + + + + + | Specimen | + + | Blood - Blood | | (substance) | + + + + + + + | Performing | Address | City/State/Zipcode | Phone Number | | Organization | | | | + + + + + | [facility] - | [address] | [place] [address] | | | IMMUNOGENETICS/TRANS | [address] | | | | [facility] | | | | + + + + + CONFIRMATORY ABO/RH (03/14/2019 11:27 AM PDT) + + + + + [...] | + + + + + | [facility] | [address] | [place] [address] | | | MENG, | [address] | | | | TRANSFUSION MEDICINE | | | | + + + + + CBC AND AUTO DIFF (03/14/2019 11:27 AM PDT) + + + + + + | Component | Value | Ref Range | Performed | Pathologist | | | | | At | Signature | + + + + + + | WHITE CELL | 6.16 | 3.50 - 10.80 | [facility] | | | COUNT | | K/cu mm | LABORATORY | | | | | | SERVICES, | | | | | | CORE | | + + + + + + | RED CELL | 4.62 | 4.00 - 5.20 | [facility] | [...] + + + + | HEMATOCRIT | 40.9 | 36.0 - 46.0 % | [facility] | | | | | | LABORATORY | | | | | | SERVICES, | | | | | | CORE | | + + + + + + | MCV | 88.5 | 80.0 - 100.0 fL | [facility] | | | | | | LABORATORY | | | | | | SERVICES, | | | | | | CORE | | + + + + + + | MCHC | 33.0 | 32.0 - 36.0 | [facility] | | | | | g/dL | LABORATORY | | | | | | SERVICES, | | | | | | CORE | | + + + + + + | RDW SD | 46.9 (H) | 35.1 - 46.3 fL | [facility] | | | | | | LABORATORY | | | | | | SERVICES, | | | | | | CORE | | + + + + + + | PLATELET | 329 | 150 - 400 K/cu | [facility] | | | COUNT | | mm | LABORATORY | | | | | | SERVICES, | | | | | | CORE | | + + + + + + | MPV | 11.8 | 9.7 - 12.3 fL | [facility] [...] + + + + | NEUTROPHIL | 63.5 | 50.0 - 70.0 % | [facility] | | | % | | | LABORATORY | | | | | | SERVICES, | | | | | | CORE | | + + + + + + | LYMPHOCYTE | 30.8 | 18.0 - 42.0 % | [facility] | | | % | | | LABORATORY | | | | | | SERVICES, | | | | | | CORE | | + + + + + + | MONOCYTE % | 3.1 (L) | 3.5 - 9.0 % | [facility] | | | | | | LABORATORY | | | | | | SERVICES, | | | | | | CORE | | + + + + + + | EOS % | 1.3 | 1.0 - 3.0 % | [facility] [...] + + + + | NEUTROPHIL | 3.91 | 1.80 - 7.70 | [facility] | | | # | | K/cu mm | LABORATORY | | | | | | SERVICES, | | | | | | CORE | | + + + + + + | LYMPHOCYTE | 1.90 | 1.00 - 4.80 | [facility] | | | # | | K/cu mm | LABORATORY | | | | | | SERVICES, | | | | | | CORE | | + + + + + + | MONOCYTE # | 0.19 | 0.10 - 0.90 | [facility] | | | | | K/cu mm | LABORATORY | | | | | | SERVICES, | | | | | | CORE | | + + + + + + | EOS # | 0.08 | 0.00 - 0.50 | [facility] | | | | | K/cu mm | LABORATORY | | | | | | SERVICES, | | | | | | CORE | | + + + + + + | BASO # | 0.05 | 0.00 - 0.10 | [facility] | [...] + + + + + | [facility] | [address] | [place] [address] | | | SERVICES, CORE | [address] | | | + + + + + INF DISEASE MISC (03/14/2019 11:27 AM PDT) + + + + + + | Component | Value | Ref Range | Performed | Pathologist | | | | | At | Signature | + + + + + + | RPR (STS) | Negative | Negative | [facility] | | | | | | CELL | | | | | | PROCESSING | | | | | | LAB | | + + + + + + | CMV AB | Negative | Negative | [facility] | | | | | | CELL | | | | | | PROCESSING | | | | | | LAB | | + + + + + + + + | Specimen | + + | Blood - Blood | | (substance) | + + + + + | Narrative | Performed At | + + + | Testing performed by: [facility] [address] [place] [address], | [facility] | | [place] [address] | CELL PROCESSING | | | LAB | + + + + + + + + | Performing | Address | City/State/Zipcode | Phone Number | | Organization | | | | + + + + + | [facility] | [address] | [place], [place] | | | THERAPY LAB | [facility] | [address] | | + + + + + | [facility] | [address] | [place], [place] | | | PROCESSING LAB | [facility] | [address] | | + + + + + INF DISEASE LO (03/14/2019 11:27 AM PDT) + + + + + + | Component | Value | Ref Range | Performed | Pathologist | | | | | At | Signature | + + + + + + | HCV LO | Negative | Negative | [facility] | | | | | | CELL | | | | | | PROCESSING | | | | | | LAB | | + + + + + + | HIV-1 LO | Negative | Negative | [facility] | | | | | | CELL | | | | | | PROCESSING | | | | | | LAB | | + + + + + + | WNV LO | Negative | Negative | [facility] | | | | | | CELL | | | | | | PROCESSING | | | | | | LAB | | + + + + + + + + | Specimen | + + | Blood - Blood | | (substance) | + + + + + | Narrative | Performed At | + + + | Testing performed by: [facility] [address], | [facility] | | [place] [address] | CELL PROCESSING | | | LAB | + + + + + + + + | Performing | Address | City/State/Zipcode | Phone Number | | Organization | | | | + + + + + | [facility] | [address] | [place], [place] | | | THERAPY LAB | [facility] | [address] | | + + + + + | [facility] | [address] | [place], [place] | | | PROCESSING LAB | [facility] | [address] | | + + + + + INF DISEASE SCREEN (03/14/2019 11:27 AM PDT) + + + + + + | Component | Value | Ref Range | Performed | Pathologist | | | | | At | Signature | + + + + + + | HEP BS AG | Negative | Negative | [facility] | | | | | | CELL | | | | | | PROCESSING | | | | | | LAB | | + + + + + + | HEP B CORE | Negative | Negative | [facility] | | | AB | | | CELL | | | | | | PROCESSING | | | | | | LAB | | + + + + + + | HEP C AB | Negative | Negative | [facility] | | | | | | CELL | | | | | | PROCESSING | | | | | | LAB | | + + + + + + | HTLV I AB | Negative | Negative | [facility] | | | | | | CELL | | | | | | PROCESSING | | | | | | LAB | | + + + + + + | HTLV II AB | Negative | Negative | [facility] | | | | | | CELL | | | | | | PROCESSING | | | | | | LAB | | + + + + + + | HIV 1/2 AB | Negative | Negative | [facility] | | | | | | CELL | | | | | | PROCESSING | | | | | | LAB | | + + + + + + | T. CRUZI AB | Negative | Negative | [facility] | | | | | | CELL | | | | | | PROCESSING | | | | | | LAB | | + + + + + + + + | Specimen | + + | Blood - Blood | | (substance) | + + + + + | Narrative | Performed At | + + + | Testing performed by: [facility] [address] [place] [address], | [facility] | | [place] [address] | CELL PROCESSING | | | LAB | + + + + + + + + | Performing | Address | City/State/Zipcode | Phone Number | | Organization | | | | + + + + + | [facility] | [address] | [place], [place] | | | THERAPY LAB | [address] | [address] | | + + + + + | [facility] | [address] [facility] | [place], [place] | | | PROCESSING LAB | [address] | [address] | | + + + + + COMPLETE METABOLIC SET (NA,K,CL,CO2,BUN,CREAT,GLUC,CA,AST,ALT,BILI TOTAL,ALK PHOS,ALB,PROT TOTAL) (03/14/2019 11:27 AM PDT) + +---------+ + + + | Component | Value | Ref Range | Performed | Pathologist | | | | | At | Signature | + +---------+ + + + | GLUCOSE, | 86 | 70 - 99 mg/dL | [facility] | | | PLASMA | | | LABORATORY | | | (LAB) | | | SERVICES, | | | | | | CORE | | + +---------+ + + + | BUN, PLASMA | 10 | 6 - 20 mg/dL | [facility] | | | (LAB) | | | LABORATORY | | | | | | SERVICES, | | | | | | CORE | | + +---------+ + + + | CREATININE | 0.61 | 0.60 - 1.10 | [facility] | [...] +---------+ + + + | CALCIUM, | 9.6 | 8.6 - 10.2 | [...] +---------+ + + + | BILIRUBIN | 0.6 [...] + + + | ALK PHOS | 104 (H) | 42 - 98 U/L | [facility] | | | | | | LABORATORY | | | | | | SERVICES, | | | | | | CORE | | + +---------+ + + + | AST(SGOT) | 20 | <=41 U/L | [facility] | | [...] equation recommended by the National | [facility] | | Kidney Disease Education Program. Estimated [...] [facility] | [address] | [place] [address] | | | SERVICES, [place] | [address] | | | + + + + + MAGNESIUM, PLASMA (03/14/2019 11:27 AM PDT) + +-------+ + + + | Component | Value | Ref Range | Performed | Pathologist | | | | | At | Signature | + +-------+ + + + | MAGNESIUM,P | 1.9 | 1.6 - 2.6 mg/dL | [facility] | | | LASMA | | | LABORATORY | | | | | | MENG, | | | | | | CORE | | + +-------+ + + + + + | Specimen | + + | Blood - Blood | | (substance) | + + + + + + + | Performing | Address | City/State/Zipcode | Phone Number | | Organization | | | | + + + + + | [facility] | [address] | [place] [address] | | | SERVICES, CORE | [address] | | | + + + + + PHOSPHORUS, PLASMA (03/14/2019 11:27 AM PDT) + +-------+ + + + [...] [facility] | [address] | [place] [address] | | | SERVICES, CORE | [address] | | | + + + + + URIC ACID, PLASMA (03/14/2019 11:27 AM PDT) + +-------+ + + + | Component | Value | Ref Range | Performed | Pathologist | | | | | At | Signature | + +-------+ + + + | URIC ACID, | 6.2 | 2.5 - 6.2 mg/dL | [facility] [...] [facility] | [address] | [place] [address] | | | SERVICES, CORE | [address] | | | + + + + + BILIRUBIN DIRECT (03/14/2019 11:27 AM PDT) + +---------+ + + + | Component | Value | Ref Range | Performed | Pathologist | | | | | At | Signature | + +---------+ + + + | BILIRUBIN | 0.1 | 0.0 - 0.3 mg/dL | [facility] | | | DIRECT | | | LABORATORY | | | | | | SERVICES, | | | | | | CORE | | + +---------+ + + + | SUHAI D CMNT | No Hemo | | [facility] [...] + + + | [facility] | [address] | [place] [address] | | | SERVICES, CORE | [address] | | | + + + + + LDH TOTAL, PLASMA (03/14/2019 11:27 AM PDT) + +---------+ + + + | Component | Value | Ref Range | Performed | Pathologist | | | | | At | Signature | + +---------+ + + + | LD TOTAL, | 154 | <=250 U/L | [facility] | | [...] + + | [facility] | [address] | [place] [address] | | | SERVICES, CORE | [address] | | | + + + + + CHOLESTEROL TOTAL, PLASMA (03/14/2019 11:27 AM PDT) + +---------+ + + + | Component | Value | Ref Range | Performed | Pathologist | | | | | At | Signature | + +---------+ + + + | CHOLESTEROL | 225 (H) | <200 mg/dL | [facility] | | | (LAB) [...] + + + + + | [facility] | [address] | [place] [address] | | | MENG, LUZMARIA | [address] | | | + + + + + APTT (ACT. PART. THROMBO TIME) (03/14/2019 11:27 AM PDT) + +-------+ + + + | Component | Value | Ref Range | Performed | Pathologist | | | | | At | Signature | + +-------+ + + + | APTT | 31.7 | 26.0 - 36.0 | [facility] | | | | | seconds | LABORATORY | | | | | | SERVICES, | | | | | | CORE | | + +-------+ + + + + + | Specimen | + + | Blood - Blood | | (substance) | + + + + + | Narrative | Performed At | + + + | APTT values for monitoring heparin therapy may be affected by | [facility] | | specimens processed >1 hour after collection. APTT Therapeutic Range: | LABORATORY | | (75 - 120) sec Heparin levels of | [facility]AN | | 0.35 - 0.7 U/mL | | + + + + + + + + | Performing | Address | City/State/Zipcode | Phone Number | | Organization | | | | + + + + + | [facility] | [address] | [place] [address] | | | [place]IA FAN | [address] | | | + + + + + INR (03/14/2019 11:27 AM PDT) + +-------+ + + + | Component | Value | Ref Range | Performed | Pathologist | | | | | At | Signature | + +-------+ + + + | INR | 1.04 | 0.90 - 1.20 INR | [facility] [...] mech. valves (2.5 - 3.5) INR | SERVICES, CORE | + + + + + + + + | Performing | Address | City/State/Zipcode | Phone Number | | Organization | | | | + + + + + | [facility] | [address] | [place] [address] | | | SERVICES, CORE | [address] | | | + + + + + ABO & RH TYPE (03/14/2019 11:27 AM PDT) + + + + + [...] [facility] | [address] | [place] [address] | | | SERVICES, | [address] | | | | TRANSFUSION MEDICINE | | | | + + + + + ANTIBODY SCREEN (03/14/2019 11:27 AM PDT) + + + + + [...] + + + + + | [facility] | [address] | [place] [address] | | | SERVICES, | [address] | | | | TRANSFUSION MEDICINE | | | | + + + + + HSV ANTIBODY, SERUM (03/14/2019 11:27 AM PDT) + + + + + + | Component | Value | Ref Range | Performed | Pathologist | | | | | At | Signature | + + + + + + | HSV 1/2 IGG | 0.49Comment: | IV | [facility] | | | ANTIBODY | INTERPRETIVE | | REG UNIV | | | | INFORMATION: HSV 1/2 | | PTH - INTFC | | | | COMBINED Ab SCREEN, IgG | | | | | | 0.89 IV or | | | | | | less.........Not | | | | | | Detected 0.90-1.09 | | | | | | IV............Indetermin | | | | | | ate- Repeat testing | | | | | | | | | | | | in 10-14 days | | | | | | may be helpful. 1.10 | | | | | | IV or | | | | | | greater......Detected | | | | | | The best evidence for | | | | | | current infection is a | | | | | | significant change on | | | | | | two appropriately timed | | | | | | specimens, where both | | | | | | tests are done in the | | | | | | same laboratory at the | | | | | | same time. | | | | + + + + + + | HSV 1/2 IGM | 0.32Comment: | <=0.89 IV | [facility] | | | ANTIBODY | INTERPRETIVE | | REG UNIV | | | | INFORMATION: Herpes | | PTH - INTFC | | | | Simplex Virus Type 1 | | | | | | and/or 2 Antibodies, IgM | | | | | | by SHARRON 0.89 IV or | | | | | | Less .......... Not | | | | | | Detected 0.90 - 1.09 | | | | | | IV ........... | | | | | | Indeterminate- Repeat | | | | | | testing in | | | | | | | | | | | | 10-14 days may be | | | | | | helpful. 1.10 IV or | | | | | | Greater ....... | | | | | | Detected-IgM antibody to | | | | | | HSV | | | | | | | | | | | | detected, which may | | | | | | indicate a | | | | | | | | | | | | current or recent | | | | | | infection. | | | | | | | | | | | | However, low | | | | | | levels of IgM | | | | | | | | | | | | antibodies may | | | | | | occasionally | | | | | | | | | | | | persist for more | | | | | | than 12 | | | | | | | | | | | | months | | | | | | post-infection.Performed | | | | | | by [facility] | | | | | | [facility],[address] | | | | | | [place], [facility] [place] [address] | | | | | | [phone] | | | | | | Zeferino [...] [facility] | [address] | [place], [place] | | | [facility] | | [id number] | | + + + + + VARICELLA ZOSTER IGG, SERUM (03/14/2019 11:27 AM PDT) + + + + + + | Component | Value | Ref Range | Performed | Pathologist | | | | | At | Signature | + + + + + + | VARICELLA | PositiveComment: | | [facility] | | | ZOSTER IGG | VARICELLA ANTIBODY | | [facility] - | | | | TESTING IS NOT INDICATED | | [facility] | | | | OR USEFUL TO DOCUMENT | | | | | | IMMUNITY IN RECIPIENTS | | | | | | OF VARICELLA VACCINE. | | | | + + + + + + + + | Specimen | + + | Blood - Blood | | (substance) | + + + + + + + | Performing | Address | City/State/Zipcode | Phone Number | | Organization | | | | + + + + + | [facility] | [address] | [place] [address] | | | [place] | | | | + + + + + HEPATITIS A AB, IGG (03/14/2019 11:27 AM PDT) + + + + + + | Component | Value | Ref Range | Performed | Pathologist | | | | | At | Signature | + + + + + + | HEPATITIS A | Negative | Negative | [facility] | | | IGG | | | [facility] - | | | | | | [place] | | + + + + + + + + | Specimen | + + | Blood - Blood | | (substance) | + + + + + + + | Performing | Address | City/State/Zipcode | Phone Number | | Organization | | | | + + + + + | [facility] | [address] | [place] [address] | | | [place] | | | | + + + + + HEPATITIS A AB IGM, SERUM (03/14/2019 11:27 AM PDT) + + + + + + | Component | Value | Ref Range | Performed | Pathologist | | | | | At | Signature | + + + + + + | HEPATITIS A | Negative | Negative | [facility] | | | AB, IGM | | | [facility] - | | | | | | [place] | | + + + + + + + + | Specimen | + + | Blood - Blood | | (substance) | + + + + + + + | Performing | Address | City/State/Zipcode | Phone Number | | Organization | | | | + + + + + | [facility] | [address] | [place] [address] | | | [facility] | | | | + + + + + HEPATITIS B SURFACE AB QUAL, SERUM (03/14/2019 11:27 AM PDT) + + + + + + | Component | Value | Ref Range | Performed | Pathologist | | | | | At | Signature | + + + + + + | HEP B | Not Detected | Not Detected | [facility] | | | SURFACE AB | | | LABORATORY | | | QUAL | | | SERVICES, | | | [...] + + + + + | [facility] | [address] | [place] [address] | | | SERVICES, CORE | [address] | | | + + + + + TOXOPLASMA IGG AB, SERUM (03/14/2019 11:27 AM PDT) + + + + + + | Component | Value | Ref Range | Performed | Pathologist | | | | | At | Signature | + + + + + + | TOXOPLASMA | <3.0Comment: | IU/mL | [facility] | | | IGG AB | INTERPRETIVE | | REG UNIV | | | | INFORMATION: Toxoplasma | | PTH - INTFC | | | | Ab, IgG 7.1 IU/mL or | | | | | | less....... Not Detected | | | | | | 7.2-8.7 IU/mL | | | | | | .......... | | | | | | Indeterminate-Repeat | | | | | | testing in | | | | | | | | | | | | 10-14 days may be | | | | | | helpful. 8.8 IU/mL or | | | | | | greater ... Detected The | | | | | | best evidence for | | | | | | current infection is a | | | | | | significant change on | | | | | | two appropriately timed | | | | | | specimens, where both | | | | | | tests are done in the | | | | | | same laboratory at the | | | | | | same time. This test | | | | | | should not be used for | | | | | | blood donor screening, | | | | | | associated re-entry | | | | | | protocols, or for | | | | | | screening Human Cell, | | | | | | Tissues and Cellular and | | | | | | Tissue-Based Products | | | | | | (HCT/P). The magnitude | | | | | | of the measured result | | | | | | is not indicative of the | | | | | | amount of antibody | | | | | | present.Performed by | | | | | | Ret[facility],[address] | | | | | | Laney Nguyen, [facility] [place] | | | | | | [address] | | | | | | [phone].[employer]ilab. | | | | | | Zeferino [...] + + | [facility] | [address] | [place], [place] | | | UNIV PTH - INTFC | | [address] | | + + + + + VERITO LORENZO VIRUS PANEL, SERUM (03/14/2019 11:27 AM PDT) + + + + + + | Component | Value | Ref Range | Performed | Pathologist | | | | | At | Signature | + + + + + + | VERITO | 394.0 (H)Comment: | 0.0 - 21.9 U/mL | [facility] | | | LORENZO VIRUS | INTERPRETIVE | | REG UNIV | | | AB VCA IGG | INFORMATION: | | PTH - INTFC | | | | Verito-Lorenzo Virus | | | | | | Antibody to | | | | | | | | | | | | Viral Capsid Antigen, | | | | | | IgG 17.9 U/mL or | | | | | | less.......Not Detected | | | | | | 18.0-21.9 | | | | | | U/mL..........Indetermin | | | | | | ate - Repeat testing in | | | | | | | | | | | | 10-14 | | | | | | days may be helpful. | | | | | | 22.0 U/mL or | | | | | | greater....Detected | | | | + + + + + + | AB TO VCA | <10.0Comment: | 0.0 - 43.9 U/mL | [facility] | | | IGM | INTERPRETIVE | | REG UNIV | | | | INFORMATION: | | PTH - INTFC | | | | Verito-Lorenzo Virus | | | | | | Antibody to | | | | | | | | | | | | Viral Capsid Antigen, | | | | | | IgM 35.9 U/mL or | | | | | | less.......Not Detected | | | | | | 36.0-43.9 | | | | | | U/mL..........Indetermin | | | | | | ate - Repeat testing in | | | | | | | | | | | | 10-14 days | | | | | | may be helpful. 44.0 | | | | | | U/mL or | | | | | | greater....Detected | | | | + + + + + + | AB TO | >600.0 (H)Comment: | 0.0 - 21.9 U/mL | [facility] | | | NUCLEAR AG | INTERPRETIVE | | REG UNIV | | | | INFORMATION: | | PTH - INTFC | | | | Verito-Lorenzo Virus | | | | | | Antibody to | | | | | | | | | | | | Nuclear Antigen, IgG | | | | | | 17.9 U/mL or | | | | | | less.......Not Detected | | | | | | 18.0-21.9 | | | | | | U/mL..........Indetermin | | | | | | ate - Repeat testing in | | | | | | | | | | | | 10-14 days | | | | | | may be helpful. 22.0 | | | | | | U/mL or | | | | | | greater....Detected | | | | + + + + + + | AB TO EARLY | 28.8 (H)Comment: | 0.0 - 10.9 U/mL | [facility] | | | AG | Cross-reactivity between | | REG UNIV | | | | EBV EA(D) and Human | | PTH - INTFC | | | | Immunodeficiency Virus | | | | | | (HIV), Hepatitis A, B, | | | | | | and C has been | | | | | | documented.INTERPRETIVE | | | | | | INFORMATION: | | | | | | Verito-Lorenzo Virus | | | | | | Antibody to | | | | | | | | | | | | Early D Antigen | | | | | | (EA-D), IgG 8.9 U/mL | | | | | | or less........Not | | | | | | Detected 9.0-10.9 | | | | | | U/mL...........Indetermi | | | | | | mamadou - Repeat testing in | | | | | | | | | | | | 10-14 | | | | | | days may be helpful. | | | | | | 11.0 U/mL or | | | | | | greater....DetectedPerfo | | | | | | rmed by [facility] | | | | | | [facility],[address] | | [address] | [address], [facility] [place] [place] [address] | | | | | | [phone].New Relic. | | | | | | Zeferino [...] [facility] | [address] | [place], [place] | | | UNIV PTH - INTFC | | [address] | | + + + + + LIT FLOW HLA AB PRA SCREEN I/II (03/14/2019 11:27 AM PDT) + + | Specimen | + + | Blood - Blood | | (substance) | + + + + + + + | Performing | Address | City/State/Zipcode | Phone Number | | Organization | | | | + + + + + | [facility] - | [address] | [place] [address] | | | IMMUNOGENETICS/TRANS | [address] | | | | PLANT LABORATORY | | | | + + + + + ENGRAFTMENT PRE-TRANSPLANT, BLOOD (03/14/2019 11:27 AM PDT) + + + + + + | Component | Value | Ref Range | Performed | Pathologist | | | | | At | Signature | + + + + + + | ENGRAFTMENT | Sufficient DNA for | | [facility] | | | | testing. | | DIAGNOSTIC | | | (CHIMERISM) | | | | | | , | | | LABORATORIE | | | RECIPIENT, | | | S | | | BLOOD | | | | | + + + + + + | INTERPRETAT | Donor Name: TBDDonor | | [facility] | | | ION | Gender: TBDDate of | | DIAGNOSTIC | | | | Transplant: | | | | | | TBDSufficient DNA was | | LABORATORIE | | | | isolated from the | | S | | | | recipient pre-transplant | | | | | | specimen and will be | | | | | | kept in the [facility] | | | | | | Diagnostic Laboratories | | | | | | in a manner consistent | | | | | | with it remaining | | | | | | medically viable for | | | | | | post-transplant | | | | | | engraftment monitoring. | | | | + + + + + + | METHOD(S) | Upon your request, DNA | | [facility] | | | | was isolated from the | | DIAGNOSTIC | | | | recipient pre-transplant | | | | | | specimen using a Qiagen | | LABORATORIE | | | | column or salt | | S | | | | precipitation method. | | | | | | Isolated DNA from the | | | | | | recipient pre-transplant | | | | | | specimen will be kept | | | | | | in the [facility] | | | | | | Diagnostic Laboratories | | | | | | in a manner consistent | | | | | | with it remaining | | | | | | medically viable for | | | | | | post-transplant | | | | | | engraftment | | | | | | monitoring.Thank you for | | | | | | your referral. If you | | | | | | have any questions about | | | | | | this report, please | | | | | | contact us at your | | | | | | convenience at [phone] | | | | | [phone]. | | | | + + + + + + | DISCLAIMER | This test was developed | | [facility] | | | | and its performance | | DIAGNOSTIC | | | | characteristics | | | | | | determined by the [facility] | | LABORATORIE | | | | [facility] | | S | | [...] of | | | | | | [place] under CLIA and | | | | | | are accredited by the | | | | | | [employer] | | | | | | Pathologists (CAP). | | | | | | Tip Scourer: | | | | | | Tayo [...] + + + + | [facility] | [address] | [place] [address] | | | DIAGNOSTIC | [address] | | | | LABORATORIES | | | | + + + + + LIT - HLA VERIFICATION TYPING CLASS I (03/14/2019 11:27 AM PDT) + + | Specimen | + + | Blood - Blood | | (substance) | + + + + + + + | Performing | Address | City/State/Zipcode | Phone Number | | Organization | | | | + + + + + | [facility] - | [address] | [place] [address] | | | IMMUNOGENETICS/TRANS | [address] | | | | PLANT LABORATORY | | | | + + + + + LIT - HLA VERIFICATION TYPING CLASS II (03/14/2019 11:27 AM PDT) + + | Specimen | + + | Blood - Blood | | (substance) | + + + + + + + | Performing | Address | City/State/Zipcode | Phone Number | | Organization | | | | + + + + + | [facility] - | [address] | [place] [address] | | | IMMUNOGENETICS/TRANS | [address] | | | | PLANT LABORATORY | | | | + + + + + documented in this encounter Visit Diagnoses + + | Diagnosis | + + | MDS (myelodysplastic syndrome) (HCC) Myelodysplastic syndrome, unspecified | + + documented in this encounter"
--- OUTSIDE RECORDS SUMMARY | ~2020-03-12 | XMS | Encounter Summary ---
Demographics + + + | Address | [address] | | | [place] [address] | + + + | Home Phone [...] Team Providers + +------+ + | Care Lumber Trimmer Name | Role | Phone | + +------+ + | Meredith Sanchez | PCP | | + +------+ + Reason for Visit + +--------+ + | Reason | Onset | Comments | | | Date | | + +--------+ + | Care Coordination | 08/01/ | line removal | | | 2020 | | + +--------+ + Encounter Details +--------+ + + + + | Date | Type | Department | Care Team | Description | +--------+ + + + + | 08/01/ | Telephone | Interventional | Kimberly Rose RN | Care Coordination | | 2020 | | [facility] at [facility] | [address] | (line removal) | | | | [address] | [address] | | | | | [address] Physician[address] | [place], [place] | | | | | Pavilion, 2nd floor | [address] | | | | | [place], [place] | | | | | | [address] | | | | | | [phone] | | | +--------+ + + + [...] this encounter Miscellaneous Notes Telephone Encounter - Kimberly Rose RN - 08/01/2019 10:50 AM PSTSpoke to Nona rosas IR Procedure line removal Scheduled for: 08/02/2019 The schedulers will call the pt 1 business day prior to treatment date with admission time and location. IR Questionnaire: Contrast allergy: no Blood thinners: no Diabetic: no Renal problems: no Organ transplant: no Sleep apnea: no Isolation precautions: no Pre procedural instructions given: Letter of instructions with map and visitor guidelines not sent - declined Advised to call with questions or concerns. Pt is in agreement with above plan. Kimberly Rose RN IR Patient Commission Broker documented in this enc ounter Plan of Treatment Not on filedocumented as of this encounter Visit Diagnoses Not on filedocumented in this encounter"
--- OUTSIDE RECORDS SUMMARY | ~2020-03-12 | XMS | Encounter Summary ---
Demographics + + + | Address | [address] | | | [place] [address] | + + + | Home Phone [...] Team Providers + +------+ + | Care Sugar House Supervisor Name | Role | Phone | + +------+ + | Meredith Sanchez | PCP | | + +------+ + Encounter Details +--------+ + + + + | Date | Type | Department | Care Team | Description | +--------+ + + + + | 03/02/ | Automat Watcher | [facility] | Sam Baron FNP | 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 | | Clinics at S | [address]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) | | | | [facility] [address] | [address] [place], | (Primary Dx) | | | | [facility] | [place] [address] | | | | | Health and Healing, | [phone] | | | | | [address] | | | | | | [place], [place] | | | | | | [address] | | | | | | [phone] | | | +--------+ + + + [...] | | | | | | , [facility] & | | | | | | [facility] | | | | | | electronic [...] | | | | | [id number] | | | | | | HLA-DR sKappa sLambda | | | | | | Immunohistochemistry [...] | | | | | 0.3 D cm(mcm) | | | | + + + [...] | | | | | determined by [facility] | | | | | [...] | + + + + + | [facility] | [address] | [place] [address] | | | PATHOLOGY | [address] | | | + + + + + | [facility] | [address] | [place] [address] | | | [facility] | | | | | HEALTH + [...] clinical | | | | | | cad librarian. | | | | + + + [...] | | | | determined by the [facility] | | LABORATORIE | | [...] of | | | | | | [place] under CLIA and | | | | | | are accredited by the | | | | | | [employer] | | | | | | Pathologists (CAP). | | | | | | Box Packer: | | | | | | Tayo Singletary, | | | | | | M.Hunter., | | | | | | Ph.D.Electronically | | | | | | reviewed and signed | | | | | | by:Chuy Acuna, PhD, | | | | | | FACMGClinical | | | | | | Sample Color Maker Clinical | | | | | | Molecular | | | | | | Geneticist03/16/2019 at | | | | | | 1:25 PMReviewed and | | | | | | electronically signed by | | | | | | CONG CINTRON, | | | | | | ,JANNIEMG03/16/2019 6:20 | | | | | | [...] + + + + | [facility] | [address] | [place] [address] | | | DIAGNOSTIC | [address] | | | | LABORATORIES | | | | + + + + + documented in this encounter Visit Diagnoses + + | Diagnosis | + + | MDS (myelodysplastic syndrome) (HCC) - Primary Myelodysplastic syndrome, unspecified | + + documented in this encounter"
--- OUTSIDE RECORDS SUMMARY | ~2020-03-12 | XMS | Encounter Summary ---
Demographics + + + | Address | [address] | | | [place] [address] | + + + | Home Phone [...] Team Providers + +------+ + | Care Forest Ecologist Name | Role | Phone | + +------+ + | Meredith Sanchez | PCP | | + +------+ + Reason for Visit + +--------+ + | Reason | Onset | Comments | | | Date | | + +--------+ + | Medication | 07/21/ | IST: Tacrolimus | | Adjustment | 2020 | | + +--------+ + Encounter Details +--------+ + + + + | Date | Type | Department | Care Team | Description | +--------+ + + + + | 07/21/ | Telephone | [facility] | Sejal De La Torre | Medication | | 2020 | | Clinics at S | N, DO [address] | Adjustment (IST: | | | | [facility] [address] | Tacrolimus) | | | | [facility] for | [place], [place] | | | | | Health and Healing, | [address] | | | | | [address] | [phone] | | | | | [place], [place] | | | | | | [address] | | | | | | [phone] | | | +--------+ + + + [...] Telephone Encounter - Tayo Osborne MA - 07/21/2019 1:38 PM PSTFormatting of this no te might be different from the original. Result Follow-up CSA level: Lab Results Component Value Date FK506 11.4 07/21/2019 Nona will be contacted to change dose from 1 mg every morning and 0.5 mg every evening to 0.5 mg every morning and 0.5 mg every evening per Sejal De La Torre MD starting on 07/21/19 ( date). Nona and/or her caregiver have been contacted and were able to provide verbal read back o f these instructions. elephone Encounailyn r Tamera Hansen RN - 07/21/2019 8:17 AM PSTInitial Assessment Nona Hopper's electrical tryout person for today is patient, Nona Hopper, and her conta ct phone number for today 07/21 is: [phone]. Nona has been advised of when to [...] her last dose at 2130 (time) on 07/20 (date). documented in this encounter Plan of Treatment Not on filedocumented as of this encounter Visit Diagnoses Not on filedocumented in this encounter"
--- OUTSIDE RECORDS SUMMARY | ~2020-03-12 | XMS | Encounter Summary ---
Demographics + + + | Address | [address] | | | [place] [address] | + + + | Home Phone [...] Team Providers + +------+ + | Care Bid Clerk Name | Role | Phone | + +------+ + | Meredith Sanchez | PCP | | + +------+ + Reason for Visit + +--------+ + | Reason | Onset | Comments | | | Date | | + +--------+ + | Covid19 Screening | 01/31/ | | | | 2019 | | + +--------+ + Encounter Details +--------+ + + + + | Date | Type | Department | Care Team | Description | +--------+ + + + + | 01/31/ | Telephone | [facility] | Sejal De La Torre | Covid19 Screening | | 2020 | | Clinics at S | N, DO [address] | | | | | [facility] [address] | [facility] | | | | | [facility] for | [place], [place] | | | | | Health and Healing, | [address] | | | | | [address] | [phone] | | | | | [place], [place] | | | | | | [address] | | | | | | [phone] | | | +--------+ + + + [...] this encounter Miscellaneous Notes Telephone Encounter - Mario Owen MA - 02/01/2020 11:08 AM PDTKCI COVID-19 24 hr Screen Symptoms: Cough: No Fever: No Sore Throat: No Shortness of Breath: No Exposure Assessment: Tested for COVID-19: No Contact with COVID-19 Positive or Suspected Individual: No documented in this enco unter Plan of Treatment Not on filedocumented as of this encounter Visit Diagnoses Not on filedocumented in this encounter"
--- OUTSIDE RECORDS SUMMARY | ~2020-03-12 | XMS | Encounter Summary ---
Demographics + + + | Address | [address] | | | [place] [address] | + + + | Home Phone [...] Providers + +------+ + | Care Diesel Locomotive Crane Operator Name | Role | Phone | + +------+ + | Meredith Sanchez | PCP | | + +------+ + Reason for Visit + + + | Reason | Comments | + + + | Infusion | | + + + | Central Line Care | | + + + | Lab Draw | | + + + AUTH/CERT +--------+--------+ + + + + [...] + + + + | 07/07/ | Hospital | [facility] | [address], [address] | | | 2020 | Encounter | Clinics at S | [facility] [place], | | | | | [address] | [place] [address] | | | | | [facility] | | | | | [facility], | | | | | | [address] | | | | | | [place], [place] | | | | | | [address] | | | | | | [phone] | | | +--------+ + + + [...] | Blood Pressure | 110/63 | 07/07/2019 9:45 AM | | | | | PST | | + + + + + | Pulse | 97 | 07/07/2019 9:45 AM | | | | | PST | | + + + + + | Temperature | 36.6 C (97.8 F) | 07/07/2019 9:45 AM | | | | | PST | | + + + + + | Respiratory Rate | 17 | 07/07/2019 9:45 AM | | | | | PST | | + + + + + | Oxygen Saturation | 96% | 07/07/2019 9:45 AM | | | | | PST | | + + + + + | Inhaled Oxygen | - | - | | | Concentration | | | | + + + + + | Weight | 56.2 kg (124 lb) | 07/07/2019 9:45 AM | | | | | PST [...] documented as of this encounter Progress Notes Mary Grace Smith, RN - 07/07/2019 9:30 AM PST INFUSION NURSING NOTE Allergies: Nona is allergic to cefepime and sulfa (sulfonamide antibiotics). Narrative: Patient arrives ambulatory for lab draw, dressing change and supportive care. 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 Nursing Assessment: Fever/Chills/Infection: No SOB / Cough: DOUGLASS Dizziness/Lightheaded/Fatigue: Yes - baseline fatigue r/t tx, no changes per pt Signs/Symptoms Bleeding: No Neuropathy: No Mucositis: Yes - taste changes, impacting po intake. Also, occasional difficulty swallowing r/t feeling like foods get stuck and at times feels painful. Pt taking in softer foods, whi ch is helpful. Nausea/Vomiting: Yes Appetite: decreased, pt reports struggling to get in po. Diarrhea/Constipation: Yes - How often? 3-4 daily, pt reporting 8-9/10 low abdominal pain a t times prior to BMs. She reports this pain as transient and hard to track, although feels l zaid it occurs about an hours after medications and food. PO Fluid Intake: Unsure, pt given 1 L NS bolus given. Rash/Skin sores/Edema: Yes - red macular rash to back, improving per pt. Urinary Issues: No Pain: No Vascular Access: Pre-procedure pain level: 0 Groshong intact to right anterior chest wall without erythema or induration. Dressing raegan esvin, skin intact without s/s exit site or tunnel infection. Using a Central Line Dressing C hange kit, site cleansed with Chloraprep. Skin prep applied prior to dressing application. Biopatch applied with SorbaView dressing. Positive pressure valves changed to each port. All lumens pulse flushed with 10 mL NS. Patient tolerated procedure without difficulty. Post-procedure pain level: 0 VAD Lab Draw: Groshong accessed per protocol. Good blood return noted. Appropriate waste discarded. Meghna portillo drawn and sent. Groshong pulse flushed with 20 mL NS. Patient scheduled for provider vi sit today with Cathy Cornelius NP. Per Orders: Infusion Plan: 1. 1 L NS bolus given along with maintenance fluids via Groshong. 2. 8 grams IV mag given via groshong, for may level 1.1. 3. 60 mEq K given for k level 3.0: 40 mEq IV and 2 mEq po, per provider. 4. 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 Pt discharged with caregiver in p mus[place] transportation to ED. Report called to wrapper layer and examiner soft work at ED. Patient was reminded to call clinic with temp > 100.4, chills, s/s of bleeding or uncontrol led N/V/D/C. Patient d/c d ambulatory with caregiver. Mary Grace Smith, RN documented in this enc ounter Plan of Treatment + +------+--------+ + + | Name | Type | Priori | Associated Diagnoses | Order Schedule | | | | ty | | | + +------+--------+ + + | C. DIFFICILE TOXIN, | Lab | Routin | S/P cord blood | Expected: 07/07/2019 | | W/REFLEX | | e | transplantation | (Approximate), | | CONFIRMATION IF | | | | Expires: 08/07/2020 | | INDETERMINATE | | | | | | RESULTS | | | | | + +------+--------+ + + | GI BACTERIAL PANEL, | Lab | Routin | S/P cord blood | Expected: 07/07/2019 | | STOOL | | e | transplantation | (Approximate), | | | | | | Expires: 08/07/2020 | + +------+--------+ + + | GI VIRUS PANEL, | Lab | Routin | S/P cord blood | Expected: 07/07/2019 | | STOOL | | e | transplantation | (Approximate), | | | | | | Expires: 08/07/2020 | + +------+--------+ + + documented as of this encounter Procedures + +--------+ + + + | Procedure Name | Priori | Date/Time | Associated Diagnosis | Comments | | | ty | | | | + +--------+ + + + | [facility] - MAGNESIUM, | Routin | 07/07/2019 | S/P cord blood | Results for this | | PLASMA | e | 9:41 AM | transplantation MDS | procedure are in the | | | | PST | (myelodysplastic | results section. | | | | | syndrome) ([facility]) | | + +--------+ + + + | [facility] - PHOSPHORUS, | Routin | 07/07/2019 | S/P cord blood | Results for this | | PLASMA | e | 9:41 AM | transplantation MDS | procedure are in the | | | | PST | (myelodysplastic | results section. | | | | | syndrome) ([facility]) | | + +--------+ + + + | [facility] - LDH TOTAL, | Routin | 07/07/2019 | S/P cord blood | Results for this | | PLASMA | e | 9:41 AM | transplantation MDS | procedure are in the | | | | PST | (myelodysplastic | results section. | | | | | syndrome) ([facility]) | | + +--------+ + + + | CBC AND AUTO DIFF | Routin | 07/07/2019 | S/P cord blood | Results for this | | | e | 9:41 AM | transplantation MDS | procedure are in the | | | | PST | (myelodysplastic | results section. | | | | | syndrome) ([facility]) | | + +--------+ + + + | VERITO-LORENZO VIRUS | Routin | 07/07/2019 | S/P cord blood | Results for this | | PCR, PLASMA | e | 9:41 AM | transplantation | procedure are in the | | | | PST | | results section. | + +--------+ + + + | [facility] - COMPLETE | Routin | 07/07/2019 | S/P cord blood | Results for this | | METABOLIC SET | e | 9:41 AM | transplantation MDS | procedure are in the | | | | PST | (myelodysplastic | results section. | | | | | syndrome) ([facility]) | | + +--------+ + + + | [facility] CBC W | Routin | 07/07/2019 | S/P cord blood | Results for this | | DIFFERENTIAL | e | 9:41 AM | transplantation MDS | procedure are in the | | | | PST | (myelodysplastic | results section. | | | |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) | | + +--------+ + + + | LYMPHOCYTE | Routin | 07/07/2019 | S/P cord blood | Results for this | | ACTIVATION(LYMPH | e | 9:41 AM | transplantation MDS | procedure are in the | | RECONSTITUTION/ACTIV | | PST | (myelodysplastic | results section. | | ATE),BLOOD | | | syndrome) ([facility]) | | + +--------+ + + + | CMV PCR | Routin | 07/07/2019 | S/P cord blood | Results for this | | QUANTITATION, PLASMA | e | 9:41 AM | transplantation MDS | procedure are in the | | | | PST | (myelodysplastic | results section. | | | | | syndrome) ([facility]) | | + +--------+ + + + | TACROLIMUS, WHOLE | Routin | 07/07/2019 | S/P cord blood | Results for this | | BLOOD | e | 9:41 AM | transplantation MDS | procedure are in the | | | | PST | (myelodysplastic | results section. | | | |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) | | + +--------+ + + + documented in this encounter Results CBC AND AUTO DIFF (07/07/2019 9:41 AM PST) + + + + + + | Component | Value | Ref Range | Performed | Pathologist | | | | | At | Signature | + + + + + + | WHITE CELL | 6.66 | 3.50 - 10.80 | [facility] | | | COUNT | | K/cu mm | LABORATORY | | | | | | SERVICES, | | | | | | [facility] + | | | | | | [facility] | | + + + + + + | RED CELL | 2.99 (L) | 4.00 - 5.20 | [facility] [...] + + + + | HEMATOCRIT | 27.7 (L) | 36.0 - 46.0 % | [facility] | | | | | | LABORATORY | | | | | | SERVICES, | | | | | | [facility] | [facility] + | | | | | | [facility]ALING | | + + + + + + | MCV | 92.6 | 80.0 - 100.0 fL | [facility] | | | | | | LABORATORY | | | | | | SERVICES, | | | | | | [facility] | [facility] + | | | | | | [facility]ALING | | + + + + + + | MCHC | 30.3 (L) | 32.0 - 36.0 | [facility] | | | | | g/dL | LABORATORY | | | | | | SERVICES, | | | | | | [facility] | [facility] + | | | | | | [facility]ALING | | + + + + + + | RDW SD | 58.0 (H) | 35.1 - 46.3 fL | [facility] | | | | | | LABORATORY | | | | | | SERVICES, | | | | | | [facility] | [facility] + | | | | | | [facility]ALING | | + + + + + + | PLATELET | 239 | 150 - 400 K/cu | [facility] [...] + + + + | NEUTROPHIL | 59.5 | 50.0 - 70.0 % | [facility] | | | % | | | LABORATORY | | | | | | SERVICES, | | | | | | [facility] | | | [facility] + | | | | | | HEALING | | + + + + + + | LYMPHOCYTE | 17.4 (L) | 18.0 - 42.0 % | [facility] | | | % | | | LABORATORY | | | | | | SERVICES, | | | | | | [facility] | | [facility] + | | | | | | HEALING | | + + + + + + | MONOCYTE % | 11.9 (H) | 3.5 - 9.0 % | [facility] | | | | | | LABORATORY | | | | | | SERVICES, | | | | | | [facility] | | [facility] + | | | | | | HEALING | | + + + + + + | EOS % | 9.6 (H) | 1.0 - 3.0 % | [...] + + + + | NEUTROPHIL | 3.97 | 1.80 - 7.70 | [facility] | | | # | | K/cu mm | LABORATORY | | | | | | SERVICES, | | | | | | [facility] | | | [facility] + | | | | | | HEALING | | + + + + + + | NEUTROPHIL | 3.97Comment: Preliminary | 1.80 - 7.70 | [facility] [...] + + + + | LYMPHOCYTE | 1.16 | 1.00 - 4.80 | [facility] | | | # | | K/cu mm | LABORATORY | | | | | | SERVICES, | | | | | | [facility] | | | [facility] + | | | | | | HEALING | | + + + + + + | MONOCYTE # | 0.79 | 0.10 - 0.90 | [facility] | | | | | K/cu mm | LABORATORY | | | | | | SERVICES, | | | | | | [facility] | | | [facility] + | | | | | | HEALING | | + + + + + + | EOS # | 0.64 (H) | 0.00 - 0.50 | [facility] [...] + + + + | IG# | 0.09 | 0.00 - 0.10 | [...] LABORATORY | [address] | [place] [address] | | | SERVICES, [facility] | | | | | HEALTH + HEALING | | | | + + + + + [facility] - COMPLETE METABOLIC SET (07/07/2019 9:41 AM PST) + +---------+ + + + | Component | Value | Ref Range | Performed | Pathologist | | | | | At | Signature | + +---------+ + + + | GLUCOSE, | 161 (H) | 70 - 99 mg/dL | [facility] | | | PLASMA | | | LABORATORY | | | (LAB) | | | SERVICES, | | | | | | [facility] | | | [facility] + | | | | | | HEALING | | + +---------+ + + + | BUN, PLASMA | 9 | 6 - 20 mg/dL | [facility] | | | (LAB) | | | LABORATORY | | | | | | SERVICES, | | | | | | [facility] | [facility] | | | | [facility] + | | | | | | HEALING | | + +---------+ + + + | CREATININE | 0.88 | 0.60 - 1.10 | [facility] | [...] | | | LABORATORY | | | [facility] | | | SERVICES, | | | [...] +---------+ + + + | POTASSIUM, | 3.0 [...] +---------+ + + + | TOTAL | 6.1 (L) | 6.4 - 8.2 g/dL | [...] +---------+ + + + | AST(SGOT) | 9 | <=41 U/L | [facility] | | | | | | LABORATORY | | | | | | SERVICES, | | | | | | [facility] | | | | | | [facility] + | | | | | | HEALING | | + +---------+ + + + | ALT (SGPT) | 9 | <=60 U/L | [facility] | | | | | | LABORATORY | | | | | | SERVICES, | | | | | | [facility] | | | | | | [facility] + | | | | | | HEALING | | + +---------+ + + + | ANION GAP | 15 (H) | 4 - 11 mmol/L | [facility] | | | | | | LABORATORY | | | | | | SERVICES, | | | | | | [facility] | | | | | | [facility] + | | | | | | HEALING | | + +---------+ + + + | ANION | 17 (H) | 4 - 11 mmol/L | [...] +---------+ + + + | BUN/CREATIN | 10 | 8 - 25 | [facility] | [...] | + + + + + | [facility] | [address] | [place] [address] | | | SERVICES, [place] [facility] | | | | | HEALTH + HEALING | | | | + + + + + [facility] - LDH TOTAL, PLASMA (07/07/2019 9:41 AM PST) + +---------+ + + + | Component | Value | Ref Range | Performed | Pathologist | | | | | At | Signature | + +---------+ + + + | LD TOTAL, | 167 | <=250 U/L | [facility] | | [...] LABORATORY | [address] | [place] [address] | | | [facility], [place] [facility] | | | | | HEALTH + HEALING | | | | + + + + + [facility] - MAGNESIUM, PLASMA (07/07/2019 9:41 AM PST) + +---------+ + + + [...] + + + + + | [facility] | [address] | [place] [address] | | | [facility], [place] [facility] | | | | | HEALTH + HEALING | | | | + + + + + [facility] - PHOSPHORUS, PLASMA (07/07/2019 9:41 AM PST) + +-------+ + + + [...] | + + + + + | [facility] LAB[facility]ORY | [address] | [place] [address] | | | [facility] | | | | | HEALTH + HEALING | | | | + + + + + CMV PCR QUANTITATION, PLASMA (07/07/2019 9:41 AM PST) + + [...] 2 fold may not reflect true | [facility] | | biological changes and must [...] | | | characteristics determined by the [facility] Diagnostic [facility] | | | Molecular Diagnostic Center. It has not been cleared or approved by | | | the Food and Drug Administration. FDA approval is not required for | | | clinical use of this test, and therefore validation was done as | | | required under the requirements of the Clinical Laboratory Improvement | | | Act of 1988. The [facility] Molecular | | | Diagnostic Center is a fully licensed and/or accredited clinical | | | laboratory under CLIA, CAP, and the [facility]. | | + + + + + + + + | Performing | Address | City/State/Zipcode | Phone Number | | Organization | | | | + + + + + | [facility] | [address] | [place] [address] | | | DIAGNOSTIC | [address] | | | | LABORATORIES | | | | + + + + + TACROLIMUS, WHOLE BLOOD (07/07/2019 9:41 AM PST) + +-------+ + + + | Component | Value | Ref Range | Performed | Pathologist | | | | | At | Signature | + +-------+ + + + | TACROLIMUS | 5.1 | 5.0 - 15.0 | [facility] | [...] | Test performed by immunoassay using [employer]eller i2000. . | [facility] | | Samples [...] + + + + + | [facility] | [address] | [place] [address] | | | SERVICES, SPECIAL | JASON [...] we have completed a quantitative polymerase | [facility] | | chain reaction (PCR) based [...] | | performance characteristics determined by the [facility] Molecular | | | Diagnostics Center. It has not been cleared or approved by the Food | | | and Drug Administration. FDA approval is not required for clinical | | | use of this test, and therefore validation was done as required under | | | the requirements of the Clinical Laboratory Improvement Act of 1988. | | | The [facility] is a fully licensed and/or accredited clinical laboratory | | | under CLIA, CAP, and the [facility]. References: 1) | | | Phong et [...] | | real-time polymerase chain reaction. Transfusion 2008;48:2230-1673. | | | 4) Bassam BEARDEN, Genny CASAS, Félix I, van keshia Viktorj W, et al. | | | Frequent monitoring of Verito-Lorenzo virus DNA load in unfractionated | | | whole blood is essential for early detection of posttransplant | | | lymphoproliferative disease in high-risk patients. Blood | | | 2001;97(5):6178-7008. | | + + + + + + + + | Performing | Address | City/State/[facility] Cent[facility] | Phone Number | | Organization | | | | + + + + + | [facility] | [address] | [place] [address] | | | DIAGNOSTIC | [address] | | | | LABORATORIES | | | | + + + + + LYMPHOCYTE ACTIVATION(LYMPH RECONSTITUTION/ACTIVATE),BLOOD (07/07/2019 9:41 AM PST) [...] % of | [facility] | | | -[id number] | | Lymphs | LABORATORY | | | % | | | SERVICES, | | | | | | SPECIAL IMM | | | | | | + COAG | | + + + + + + | T-REG(4+127 | 70 | Cells/uL | [facility] | | | -[id number]+) | | | LABORATORY | | | [...] TCR | | | a/b TCR g/d [place] Lambda (Analyte specific reagents are used in | | | many laboratory tests necessary for standard medical care. This test | | | was developed and its performance characteristics determined by [facility] | | | laboratories. It has not [...] + + + + + | [facility] | [address] | [place] [address] | | | SERVICES, SPECIAL | JASON [...] in water IV | New Bag | 07/07/19 | 4 g | | | | (RTU) 4 g 4 g, intravenous, | | 20 1:06 | | | | | ONCE, 1 dose, Cheryl 07/07/19 at 1115 | | PM PST | | | | + +---------+ +------+------+------+ +---+---+ | | | +---+---+ + +---------+ +-----+---+---+ | magnesium sulfate in water IV | New Bag | 07/07/19 | 4 g | | | | (RTU) 4 g 4 g, intravenous, | | 20 10:00 | | | | | ONCE, 1 dose, Cheryl 07/07/19 at 1115 | | AM PST | | | | + +---------+ +-----+---+---+ + +---+ | | | + +---+ | magnesium sulfate in water IV | | | (RTU) 1 dose, Starting Cheryl | | | 07/07/19 at 1115, Until Cheryl 07/07/19 | | | at 1500 | | + +---+ | | | + +---+ + +-------+ +-------+---+---+ | methylPREDNISolone sod succ | Given | 07/07/19 | 60 mg | | | | (PF) (SOLU-MEDROL) injection 60 | | 20 12:55 | | | | | mg 60 mg (rounded from 56.2 mg = | | PM PST | | | | | 1 mg/kg | | | | | | | 56.2 kg), intravenous, ONCE, 1 | | | | | | | dose, Cheryl 07/07/19 at 1230 | | | | | | + +-------+ +-------+---+---+ + +---+ | | | + +---+ | methylPREDNISolone sod succ | | | (PF) (SOLU-MEDROL) injection 1 | | | dose, Starting Cheryl 07/07/19 at | | | 1216, Until Cheryl 07/07/19 at 1300 | | + +---+ | | | + +---+ + +---------+ +--------+---+---+ | potassium chloride IV (central | New Bag | 07/07/19 | 40 mEq | | | | line) 40 mEq 40 mEq, | | 20 11:53 | | | | | intravenous, ONCE, 1 dose, Cheryl | | AM PST | | | | | 07/07/19 at 1130 | | | | | | + +---------+ +--------+---+---+ +---+---+ | | | +---+---+ + +---------+ + +---+---+ | sodium chloride (NS) 0.9 % | New Bag | 07/07/19 | 1,000 mL | | | | bolus 1,000 mL 1,000 mL, | | 20 10:17 | | | | | intravenous, NEEDED, Starting | | AM PST | | | | | Cheryl 07/07/19 at 1011, Until Cheryl | | | | | | | 07/07/19 at 1656, decreased po | | | | | | | intake, dizziness | | | | | | + +---------+ + +---+---+ +---+---+ | | | +---+---+ documented in this encounter"
--- OUTSIDE RECORDS SUMMARY | ~2020-03-12 | XMS | Encounter Summary ---
Demographics + + + | Address | [address] | | | [place] [address] | + + + | Home Phone [...] + + + | Author | [facility] | + + + | Organization | [facility] | + + + | Address | Unknown | + + + | Phone | Unavailable | + + + Support + + +---------+ + | Name | Relationship | Address | Phone | + + +---------+ + | Claudia Cota | ECON | Unknown | | + + +---------+ + Care Team Providers + +------+ + | Care Foot Specialist Name | Role | Phone | + +------+ + | Meredith Sanchez | PCP | | + +------+ + Reason for Visit +--------+--------+ + | Reason | Onset | Comments | | | Date | | +--------+--------+ + | Other | 04/04/ | pt wanted rundown of plan for next week, and | | | 2019 | specifically if they needed to come in on the | +--------+--------+ + Encounter Details +--------+ + + + + | Date | Type | Department | Care Team | Description | +--------+ + + + + | 04/04/ | Telephone | [facility] | [facility]re | Other (pt wanted | | 2019 | | Clinics at S | N, DO [address] | rundown of plan for | | | | [facility] [address] | next week, and | | | | [facility] for | [place], [place] | specifically if they | | | | Health and Healing, | [address] | needed to come in | | | | [address] | [phone] | on the ) | | | | [place], [place] | | | | | | [address] | | | | | | [phone] | | | +--------+ + + + [...] Notes Telephone Encounter - Tayo Casillas - 04/04/2019 1:08 PM PDT Pt called wanted to go over plan for next week, was curious if she needed to come in on the , but wanted to touch base in general. [phone] signed by Tayo Casillas at 04/04/2019 1:11 PM PDTdocument ed in this encounter Plan of Treatment Not on filedocumented as of this encounter Visit Diagnoses Not on filedocumented in this encounter"
--- OUTSIDE RECORDS SUMMARY | ~2020-03-12 | XMS | Encounter Summary ---
Demographics + + + | Address | [address] | | | [place] [address] | + + + | Home Phone | | + + + | Preferred Language | Unknown | + + + | Marital Status | Single | + + + | Anglican Affiliation | NRP | + + + [...] Providers + +------+ + | Care Color Drum Worker Name | Role | Phone | [...] | | | | | (HCC) | [place] | | | | | Procedures | [address] | [address] | | | | | [place] | Phone: | Phone: | | | | | OFFICE/OUTPT | [phone] | [phone] | | | | | | Fax: | Fax: | | | | | VISIT,CORTNEY RIDDLE | [phone] | [phone] | | | | | VL IV | | | +--------+--------+ + + + + Encounter Details +--------+---------+ + + + | Date | Type | Department | Care Team | Description | +--------+---------+ + + + | 07/21/ | Office | [facility] | Sejal De La Torre | S/P cord blood | | 2020 | Visit | Clin[facility] at [facility] | N, DO [address] | transplantation | | | | [facility] [address] | (Primary Dx) | | | | [facility] [place] [facility] | [place], [place] | | | | | Health and Healing, | [address] | | | | | [address] | [phone] | | | | | [place], [place] | | | | | | [address] | | | | | | [phone] | | | +--------+---------+ + + + [...] + + + | Blood Pressure | 145/75 | 07/21/2019 8:58 AM | | | | | PST | | + + + + + | Pulse | 78 | 07/21/2019 8:58 AM | | | | | PST | | + + + + + | Temperature | 37.1 C (98.8 F) | 07/21/2019 8:58 AM | | | | | PST | | + + + + + | Respiratory Rate | 16 | 07/21/2019 8:58 AM | | | | | PST | | + + + + + | Oxygen Saturation | 98% | 07/21/2019 8:58 AM | | | | | PST | | + + + + + | Inhaled Oxygen | - | - | | | Concentration | | | | + + + + + | Weight | 56.7 kg (125 lb) | 07/21/2019 8:58 AM | | | | | PST | | + + + + + | Height | - | - | | + + + + + | Body Mass Index | 23.06 | 07/08/2019 4:32 PM | | | [...] Instructions Sejal De La Torre DO - 07/21/2019 9:00 AM PSTYou look good today. Stop ursodiol Keep on the scheduled prednisone taper Increase magnesium 2 tabs to twice daily You are scheduled for your D100 bone marrow and PFT testing documented in this encounter Progress Notes Sejal De La Torre DO - 07/21/2019 9:00 AM PST 07/21/19- Day +90 post transplant CHM Physician: Sejal De La Torre DO Local oncologist: Dr. Sequeira Hematologic Malignancy: MDS Conditioning regimen: FluCyTBI Date of transplant: 04/22/2019 Donor: CBU 1: [id number]/02 match, CBU 2: [id number]/02 match Research study: Kyle "[id number]: A Multicenter, Randomized, Phase III Registration [facility] of Transplantation of NiCord, Ex Vivo Expanded, [...] s howing dropping counts. --Jun. Moved to [place] ([facility]) -- 10/07/18 showed normal chemistries, Bilirubin [...] for D4-D7. 01/14-01/26/2019 admitted for zoster to [facility]. Vidaza held. 02/17/2019- seen at [facility] by Dr. De La Torre, no healthy siblings so cord blood is only option -consented to kyle "[id number]: A Multicenter, Randomized, Phase III Registration Tri wy of Transplantation of NiCord, Ex Vivo Expanded, UCB-derived, Stem and Progenitor Cells, vs. Unmanipulated UCB for Patients With Hematological Malignancies". She was randomized to SOC arm. --02/21-03/01 C3 aza.Tolerated well without complications. --04/15-05/18/2019 admitted to [facility] for planned flu/cy/tbi conditioned UCB on [...] BAL 07/11, results from the procedure are pending. Interval History: Nona comes to clinic today for post-transplant follow up. D+90 today. S he is accompanied by her caregiver, Melly. Overall, she is feeling great. Her appetite is back . She is more energetic and walking more. She reports no nausea or vomiting. She states that she has had no falls and she doesn't veer to the right like she used to associated with rig ht leg seems more weak which is getting better overtime. No diarrhea. She has [facility] housing until 08/04/19 and is excited to go home and follow-up with Dr. Mirtha mcgrath after that time. Insurance issues 2 options worried that she cannot be seen at [facility]. Review of Systems: General: Denies fevers, chills, [...] 1 tablet by mouth two times daily. OLANZAPINE 2.5 MG TABLET Take 1 tablet [...] TABLET,EXTENDED RELEASE(PART/CRYST) Take 3 tablets by mouth tw o times daily. [...] of GVHD TACROLIMUS 1 MG CAPSULE Effective 07/14/2019: Take [...] Vitals: BP Readings from Last 1 Encounters: 07/18/19 117/65 Pulse Readings from Last 1 Encounters: 07/18/19 87 Resp Readings from Last 1 Encounters: 07/18/19 16 Wt Readings from Last 1 Encounters: 07/21/19 56.7 kg (125 lb) Temp Readings from Last 1 Encounters: 07/18/19 36.7 C (98.1 F) (Oral) Body mass index is 23.06 kg/m. Physical Exam: General:This is a femalein [...] (or 3 results) - Refreshable Recent Labs 07/18/19 1254 07/21/19 0759 WBC 9.02 8.96 HB 9.7* 9.9* HCT 31.4* 31.9* PLT 241 155 NEUTROPERC 71.1* 63.0 LYMPHPERC 14.1* 20.1 MONOPERC 11.6* 11.6* BASOPERC 0.1 0.2 EOSPERC 0.3* 0.4* Recent Labs 07/18/19 1254 07/21/19 0759 WBC 9.02 8.96 HB 9.7* 9.9* HCT 31.4* 31.9* PLT 241 155 NEUTROPERC 71.1* 63.0 LYMPHPERC 14.1* 20.1 MONOPERC 11.6* 11.6* BASOPERC 0.1 0.2 EOSPERC 0.3* 0.4* Chemistries: Last 72 Hours (or 3 results): Recent Labs 07/14/19 0804 07/18/19 1254 07/21/19 0759 NA 141 141 139 K 2.9* 3.2* 3.9 CL 104 101 105 BICARB 27 29 26 BUN 14 20 18 CR 0.91 0.95 0.78 GLU 124* 127* 123* CA 8.5* 8.1* 8.3* AST 16 19 13 ALT 22 23 18 AP 76 81 84 TBILI 0.4 0.4 0.3 TP 5.9* 6.0* 5.9* ALB 3.1* 3.2* 3.1* ANIONGAP 10 11 8 ANIONALBCOR 12* 13* 10 Lab Results Component Value Date MG 1.4 07/21/2019 CT chest 07/21/19 Since 07/08/2019, mild interval [...] cord (Day 0=04/22/19) She is enrolled in [facility] "[id number]: A Multicenter, Randomized, Phase III Registration Trial [...] engraftment studies show 100% donor #2 (female) D+90 -Next BMBx, chimerisms due on Day +100 CBC reviewed and reveals improved anemia with no other abnormalities. 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 Continue steroid taper as tolerated, see navneet garcia -Prophylaxis with tacrolimus and MMF per [facility] protocol -Tacrolimus startedD-3 (goal 5-15) -s/p MMF [...] daily for 5 days (07/27- ) then off -Beclomethasone ordered on 07/01 but unable to obtain PA, OK to hold given no evidence of GV HD per pathology or on ROS -Continue triamcinolone cream as needed, no current areas of active rash Kyle Simpson phase 3 (IRB 50048) Acute GVHD Staging Complete on study visit [...] mL diarrhea/day 2 25-50% BSA 3.1-6 mg/dL 7120-7811 mL diarrhea/day 3 >50% BSA Generalized erythroderma [...] given improved GI symptoms -HypoMg 2/2 CNI: Start oral mag replacement in hopes of getting off IV -HypoK: KDur 30 mEq BID GI: Nausea resolved with steroids as above. Risk of gastritis: Continue Pepcid 20 mg BID Risk for VOD:no e/o this currently. Continue Ursodiol 500 mgPO BID through Day +90 () Pysch: #Insomnia related to RLS: continue Requip 0.5 mg qHS, increased on 06/13 #Depression:Stable, continue home SSRI. -Lexapro 20 mg PO daily Plan RTC for 2x weekly labs and infusion, 1 X weekly OV -began transition care to home to prepare for D100 -D100 bone marrow ordered and PFTs. -Send PB chimerisms and Immune recon panel today -plan for line removal once Mag stable Sejal De La Torre DO Station Managerplan coordinator [facility] documented in thi s encounter Plan of Treatment Not on filedocumented as of this encounter Visit Diagnoses + + | Diagnosis | + + | 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
--- OUTSIDE RECORDS SUMMARY | ~2020-03-12 | XMS | Encounter Summary ---
Demographics + + + | Address | [address] | | | [place] [address] | + + + | Home Phone [...] Providers + +------+ + | Care Public Weigher Name | Role | Phone | + +------+ + | Meredith Sanchez | PCP | | + +------+ + Encounter Details +--------+--------+ + + + | Date | Type | Department | Care Team | Description | +--------+--------+ + + + | 06/03/ | Travel | | | | | [...]
--- OUTSIDE RECORDS SUMMARY | ~2020-03-12 | XMS | Encounter Summary ---
Demographics + + + | Address | [address] | | | [place] [address] | + + + | Home Phone [...] Providers + +------+ + | Care Pig Caster Name | Role | Phone | + +------+ + | Meredith Sanchez | PCP | | + +------+ + Encounter Details +--------+ + + + + | Date | Type | Department | Care Team | Description | +--------+ + + + + | 06/24/ | Pharmacy | Specialty Pharmacy | | | | 2019 | Visit | Services [address] | | | | | | [address] | | | | | | [place], [place] | | | | | | [address] | | | | | | [phone] | | | +--------+ + + + [...]
--- OUTSIDE RECORDS SUMMARY | ~2020-03-12 | XMS | Encounter Summary ---
Demographics + + + | Address | [address] | | | [place] [address] | + + + | Home Phone [...] Team Providers + +------+ + | Care Workers Compensation Specialist Name | Role | Phone | + +------+ + | Meredith Sanchez | PCP | | + +------+ + Reason for Visit + +--------+ + | Reason | Onset | Comments | | | Date | | + +--------+ + | Medication Questions | 02/19/ | | | | 2019 | | + +--------+ + Encounter Details +--------+ + + + + | Date | Type | Department | Care Team | Description | +--------+ + + + + | 02/19/ | Telephone | [facility] | Sejal De La Torre | Medication Questions | | 2020 | | Clin[facility] | N, DO [address] | | | | | [facility] [address] | | | | | [facility] for | [place], [place] | | | | | Health and Healing, | [address] | | | | | [address] | [phone] | | | | | [place], [place] | | | | | | [address] | | | | | | [phone] | | | +--------+ + + + [...] this encounter Miscellaneous Notes Telephone Encounter - Apple Aguirre - 02/20/2020 4:34 PM PDTPatient is asking for a stat us update on the medication form to get her Posaconazole covered by the second baller. Juan ortiz states she is changing to Medicare and has been asking for an update/leaves messages but grace caldwell returns her call. Patient would like a c/b by tomorrow at the latest.Electronically si gned by Apple Aguirre at 02/20/2020 4:37 PM PDTdocumented in this encounter Plan of Treatment Not on filedocumented as of this encounter Visit Diagnoses Not on filedocumented in this encounter"
--- OUTSIDE RECORDS SUMMARY | ~2020-03-12 | XMS | Encounter Summary ---
Demographics + + + | Address | [address] | | | [place] [address] | + + + | Home Phone [...] Team Providers + +------+ + | Care Highway Painter Helper Name | Role | Phone | + +------+ + | Meredith Sanchez | PCP | | + +------+ + Encounter Details +--------+ + + + + | Date | Type | Department | Care Team | Description | +--------+ + + + + | 07/12/ | Pharmacy | Pharmacy @ [facility] | | | | 2019 | Visit | [address] | | | | | | [address] Mailcode: | | | | | | [facility] | | | | | | and Healing, | | | | | | [address] | | | | | | [place], [place] | | | | | | [address] | | | +--------+ + + + [...]
--- OUTSIDE RECORDS SUMMARY | ~2020-03-12 | XMS | Encounter Summary ---
Demographics + + + | Address | [address] | | | [place] [address] | + + + | Home Phone [...] Team Providers + +------+ + | Care Education Director Name | Role | Phone | + +------+ + | Meredith Sanchez | PCP | | + +------+ + Reason for Visit + +--------+ + | Reason | Onset | Comments | | | Date | | + +--------+ + | Medication Questions | 02/15/ | medication asstance form to the doctor | | | 2020 | | + +--------+ + Encounter Details +--------+ + + + + | Date | Type | Department | Care Team | Description | +--------+ + + + + | 02/15/ | Telephone | [facility] | Sejal De La Torre | Medication Questions | | 2020 | | [facility] | N, DO [address] | (medication | | | | [facility] [address] | asstance form to the | | | | [facility] for | [place] | doctor) | | | | Health and Healing, | [address] | | | | | [facility] | [phone] | | | | | [place], [place] | | | | | | [address] | | | | | | [phone] | | | +--------+ + + + [...] Notes Telephone Encounter - Rosalie Donovan - 02/16/2020 4:02 PM PDTPatient called in and is isaiah alvarado about the paper work for the medication assistance and if Dr. De La Torre has had time to fill her part out yet so that this can be in place before she has to get another refill. She [facility] insurance Feb 27 Please give her a call if there is any questions or issues.Evaristo barriga signed by Rosalie Donovan at 02/16/2020 4:05 PM PDTdocumented in this encounter Plan of Treatment Not on filedocumented as of this encounter Visit Diagnoses Not on filedocumented in this encounter"
--- OUTSIDE RECORDS SUMMARY | ~2020-03-12 | XMS | Encounter Summary ---
Demographics + + + | Address | [address] | | | [place] [address] | + + + | Home Phone [...] Team Providers + +------+ + | Care Human Relations Teacher Name | Role | Phone | + +------+ + | Meredith Sanchez | PCP | | + +------+ + Encounter Details +--------+ + + + + | Date | Type | Department | Care Team | Description | +--------+ + + + + | 03/22/ | Telephone | [facility] | Yrn Flores RN | | | 2018 | | Interventional | [address] | | | | | [address] | [address] [facility] | | | | | [address] | [place] [address] | | | | | Mailcode: [address]605 | | | | | | [facility] | | | | | | [place], [place] | | | | | | [address] | | | | | | [phone] | | | +--------+ + + + [...] this encounter Miscellaneous Notes Telephone Encounter - Hoa Mattson RN - 03/22/2019 1:49 PM PDTCalled pt to talk ab out [place] placement. She reports that the plan has changed and the line will not be neede d until March. Message sent to schedulers and to MD De La Torre. Destiny Grace docume nted in this encounter Plan of Treatment Not on filedocumented as of this encounter Visit Diagnoses Not on filedocumented in this encounter"
--- OUTSIDE RECORDS SUMMARY | ~2020-03-12 | XMS | Encounter Summary ---
Demographics + + + | Address | [address] | | | [place] [address] | + + + | Home Phone [...] + + | Author | [facility] | + + + | Organization | [facility] | + + + | Address | Unknown | + + + | Phone | Unavailable | + + + Support + + +---------+ + | Name | Relationship | Address | Phone | + + +---------+ + | Claudia Cota | ECON | Unknown | | + + +---------+ + Care Team Providers + +------+ + | Care Electrician Control Equipment Name | Role | Phone | + +------+ + | Meredith Sanchez | PCP | | + +------+ + Encounter Details +--------+ + + + + | Date | Type | Department | Care Team | Description | +--------+ + + + + | 03/01/ | Hospital | UNLRELATED BMT | | | | 2019 | Encounter | PROGRAM [address] | | | | | | [address] | | | | | | [place], [place] | | | | | | [address] | | | +--------+ + + + [...]
--- OUTSIDE RECORDS SUMMARY | ~2020-03-12 | XMS | Encounter Summary ---
Demographics + + + | Address | [address] | | | [place] [address] | + + + | Home Phone [...] | + + +---------+ + | Claudia Coat | ECON | Unknown | | + + +---------+ + Care Team Providers + +------+ + | Care Car Conditioner Name | Role | Phone | + +------+ + | Meredith Sanchez | PCP | | + +------+ + Reason for Visit + +--------+ + | Reason | Onset | Comments | | | Date | | + +--------+ + | Medication | 07/14/ | | | management | 2020 | | + +--------+ + Encounter Details +--------+ + + + + | Date | Type | Department | Care Team | Description | +--------+ + + + + | 07/14/ | Telephone | [facility] | Sejal De La Torre | Medication | | 2020 | | Clin[facility] at [facility] | N, DO [address] [facility] | management | | | | [facility] [address] | | | | | [place] for | [place], [place] | | | | | Health and Healing, | [address] | | | | | [address] | [phone] | | | | | [place], [place] | | | | | | [address] | | | | | | [phone] | | | +--------+ + + + [...] Telephone Encounter - Tayo Osborne MA - 07/14/2019 4:24 PM PSTFormatting of this no te might be different from the original. Result Follow-up CSA level: Lab Results Component Value Date FK506 11.0 07/14/2019 Nona will be contacted to change dose from 1 mg every morning and 1 mg every evening to 1 mg every morning and 0.5 mg every evening per Cathy Farris SHIP PILOT starting on 07/14/19 (da te). Nona and/or her caregiver have been contacted and were able to provide verbal read back o f these instructions. elephone Marj Stern RN - 07/14/2019 8:20 AM PSTInitial Assessment Nona Hopper's personnel arbitrator for today is patient, Nona Hopper, and her conta ct phone number for today 07/14 is: [phone]. Nona has been advised of when to expect a confirmation call regarding any necessary dose adjustments: yes. Nona was asked to contact this clinic if she has not received a confirma tion call within 24 hours. Nona reports she currently takes Tacrolimus 1 mg every morning and 1 mg every evening. Th is is the correct dose according to her most recent dose adjustment. Nona took her last dose at 2100 (time) on 07/13/19 (date). documented in this enco unter Plan of Treatment Not on filedocumented as of this encounter Visit Diagnoses Not on filedocumented in this encounter"
--- OUTSIDE RECORDS SUMMARY | ~2020-03-12 | XMS | Encounter Summary ---
Demographics + + + | Address | [address] | | | [place] [address] | + + + | Home Phone [...] Team Providers + +------+ + | Care Barker Peeler Name | Role | Phone | + +------+ + | Meredith Sanchez | PCP | | + +------+ + Reason for Visit + + + | Reason | Comments | + + + | Lab Draw | | + + + Encounter Details +--------+ + + + + | Date | Type | Department | Care Team | Description | +--------+ + + + + | 11/02/ | Clinical | Laboratory at [facility] | | Lab Draw | | 2020 | Support | [address] | | | | | Staff | [facility] | | | | | | and Healing, | | | | | | Building [address] | | | | | | [place], [place] | | | | | | [address] | | | | | | [phone] | | | +--------+ + + + [...] documented as of this encounter Progress Notes Chapito Giraldo RN - 11/03/2019 7:40 AM PDT22 gauge PIV placed in patient s left antec ubital space, using an IV start kit. PIV with excellent blood return. Labs drawn and sent. PIV flushed with 10 mL NS without any problems. Sterile transparent dressing applied. Patie nt tolerated procedure well. Pt sent back to waiting area for BMBx Chapito Giraldo docum ented in this encounter Plan of Treatment Not on filedocumented as of this encounter Procedures + +--------+ + + + | Procedure Name | Priori | Date/Time | Associated Diagnosis | Comments | | | ty | | | | + +--------+ + + + | LEUKEMIA/LYMPHOMA | Routin | 11/03/2019 | MDS | Results for this | | MARKERS - BONE | e | 8:30 AM | (myelodysplastic | procedure are in the | | MARROW | | PDT | syndrome) ([facility]) S/P | results section. | | | | | cord blood | | | | | | transplantation | | + +--------+ + + + | [facility] - MAGNESIUM, | Routin | 11/03/2019 | S/P cord blood | Results for this | | PLASMA | e | 7:36 AM | transplantation MDS | procedure are in the | | | | PDT | (myelodysplastic | results section. | | | | | syndrome) ([facility]) | | + +--------+ + + + | [facility] - PHOSPHORUS, | Routin | 11/03/2019 | S/P cord blood | Results for this | | PLASMA | e | 7:36 AM | transplantation MDS | procedure are in the | | | | PDT | (myelodysplastic | results section. | | | | | syndrome) ([facility]) | | + +--------+ + + + | [facility] - LDH TOTAL, | Routin | 11/03/2019 | S/P cord blood | Results for this | | PLASMA | e | 7:36 AM | transplantation MDS | procedure are in the | | | | PDT | (myelodysplastic | results section. | | | | | syndrome) ([facility]) | | + +--------+ + + + | FLT3 ITD, BONE | Routin | 11/03/2019 | MDS | Results for this | | MARROW | e | 7:36 AM | (myelodysplastic | procedure are in the | | | | PDT | syndrome) ([facility]) S/P | results section. | | | | | cord blood | | | | | | transplantation | | + +--------+ + + + | COMPREHENSIVE HEME | Routin | 11/03/2019 | MDS | Results for this | | PANEL SEQ, BONE | e | 7:36 AM | (myelodysplastic | procedure are in the | | MARROW | | PDT | syndrome) ([facility]) S/P | results section. | | | | | cord blood | | | | | | transplantation | | + +--------+ + + + | GENETRAILS | Routin | 11/03/2019 | MDS | Results for this | | COMPREHENSIVE HEME | e | 7:36 AM | (myelodysplastic | procedure are in the | | PANEL, BONE MARROW | | PDT | syndrome) ([facility]) S/P | results section. | | | | | cord blood | | | | | | transplantation | | + +--------+ + + + | MORE COMMON | Routin | 11/03/2019 | MDS | Results for this | | INDIVIDUAL FISH | e | 7:36 AM | (myelodysplastic | procedure are in the | | PROBES | | PDT | syndrome) ([facility]) S/P | results section. | | | | | cord blood | | | | | | transplantation | | + +--------+ + + + | RBC MORPHOLOGY | Routin | 11/03/2019 | MDS | Results for this | | | e | 7:36 AM | (myelodysplastic | procedure are in the | | | | PDT | syndrome) ([facility]) S/P | results section. | | | | | cord blood | | | | | | transplantation | | + +--------+ + + + | CBC AND AUTO DIFF | Urgent | 11/03/2019 | MDS | Results for this | | | | 7:36 AM | (myelodysplastic | procedure are in the | | | | PDT | syndrome) ([facility]) S/P | results section. | | | | | cord blood | | | | | | transplantation | | + +--------+ + + + | VERITO-LORENZO VIRUS | Routin | 11/03/2019 | S/P cord blood | Results for this | | PCR, PLASMA | e | 7:36 AM | transplantation | procedure are in the | | | | PDT | | results section. | + +--------+ + + + | CYTOGENETICS BONE | Routin | 11/03/2019 | MDS | Results for this | | MARROW CHROMOSOME | e | 7:36 AM | (myelodysplastic | procedure are in the | | ANALYSIS (W/FISH) | | PDT | syndrome) ([facility]) S/P | results section. | | | | | cord blood | | | | | | transplantation | | + +--------+ + + + | [facility] - COMPLETE | Routin | 11/03/2019 | S/P cord blood | Results for this | | METABOLIC SET | e | 7:36 AM | transplantation MDS | procedure are in the | | | | PDT | (myelodysplastic | results section. | | | | | syndrome) ([facility]) | | + +--------+ + + + | [facility] CBC W | Urgent | 11/03/2019 | MDS | Results for this | | DIFFERENTIAL | | 7:36 AM | (myelodysplastic | procedure are in the | | | | PDT | syndrome) ([facility]) S/P | results section. | | | | | cord blood | | | | | | transplantation | | + +--------+ + + + | LYMPHOCYTE | Routin | 11/03/2019 | S/P cord blood | Results for this | | ACTIVATION(LYMPH | e | 7:36 AM | transplantation | procedure are in the | | RECONSTITUTION/ACTIV | | PDT | | results section. | | ATE),BLOOD | | | | | + +--------+ + + + | CMV PCR | Routin | 11/03/2019 | S/P cord blood | Results for this | | QUANTITATION, PLASMA | e | 7:36 AM | transplantation MDS | procedure are in the | | | | PDT | (myelodysplastic | results section. | | | |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) | | + +--------+ + + + | CD4 (T CELL), BLOOD | Routin | 11/03/2019 | S/P cord blood | Results for this | | | e | 7:36 AM | transplantation | procedure are in the | | | | PDT | | results section. | + +--------+ + + + | VITAMIN D, | Routin | 11/03/2019 | S/P cord blood | Results for this | | 25-HYDROXY, SERUM | e | 7:36 AM | transplantation | procedure are in the | | | | PDT | | results section. | + +--------+ + + + | TACROLIMUS, WHOLE | Routin | 11/03/2019 | S/P cord blood | Results for this | | BLOOD | e | 7:36 AM | transplantation MDS | procedure are in the | | | | PDT | (myelodysplastic | results section. | | | |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) | | + +--------+ + + + | IGM, SERUM | Routin | 11/03/2019 | S/P cord blood | Results for this | | | e | 7:36 AM | transplantation | procedure are in the | | | | PDT | | results section. | + +--------+ + + + | IGG, SERUM | Routin | 11/03/2019 | S/P cord blood | Results for this | | | e | 7:36 AM | transplantation | procedure are in the | | | | PDT | | results section. | + +--------+ + + + | IGA, SERUM | Routin | 11/03/2019 | S/P cord blood | Results for this | | | e | 7:36 AM | transplantation | procedure are in the | | | | PDT | | results section. | + +--------+ + + + | HUMAN HERPES VIRUS 6 | Routin | 11/03/2019 | S/P cord blood | Results for this | | PCR (PLASMA OR CSF) | e | 7:36 AM | transplantation | procedure are in [...] Hematopathology | | | | | | FellowPhijessica Ybarra, | | | | | | MD, PhD | | | | | | | | | | | | | | | | | | HematopathologistDepartm | | | | | | ent of Pathology, [place] | | | | | | Health [...] | + + + + + | [facility] DEPARTMENT OF | [address] | [place] [address] | | | PATHOLOGY | [address] | | | + + + + + | [facility] LABORATORY | [address] | [place] [address] | | | [facility] | | | | | HEALTH + HEALING | | | | + + + + + MORE COMMON INDIVIDUAL FISH PROBES (11/03/2019 7:36 AM PDT) + +-------+ + [...] + | [facility] | [address] | [place] [address] | | | DIAGNOSTIC | [address] | | | | LABORATORIES | | | | + + + + + RBC MORPHOLOGY (11/03/2019 7:36 AM PDT) + + + + + + | Component | Value | Ref Range | Performed | Pathologist | | | | | At | Signature | + + + + + + | ANISOCYTOSI | 2+(25-100cells/HPF) | | [facility] | | | S | | | LABORATORY | | | | | | SERVICES, | | | | | | [facility] + | | | | | | [facility]AL[facility] | | + + + + + + | POLYCHROMAS | 2+(5-10cells/HPF) | | [facility] | | | IA | | | LABORATORY | | | | | | SERVICES, | | | | | | [facility] + | | | | | | [facility]ALING | | + + + + + + | SCHISTOCYTE | 1+ (1-4 cells/HPF) | | [facility] | | | S [...] LABORATORY | [address] | [place] [address] | | | SERVICES, [facility] | | | | | [facility] + [facility] | | | | + + + + + [facility] - COMPLETE METABOLIC SET (11/03/2019 7:36 AM PDT) + +---------+ + + + | Component | Value | Ref Range | Performed | Pathologist | | | | | At | Signature | + +---------+ + + + | GLUCOSE, | 85 | 70 - 99 mg/dL | [facility] [...] +---------+ + + + | CREATININE | 0.82 | 0.60 - 1.10 | [facility] | [...] | | | LABORATORY | | | [facility] | | | SERVICES, | | | [...] +---------+ + + + | CALCIUM(ALB | 8.7 | 8.6 - 10.2 | [...] + + + | ALK PHOS | 89 | 42 - 98 U/L | [facility] | | | | | | LABORATORY | | | | | | SERVICES, | | | | | | [facility] | [facility] + | | | | | | [facility]ALING | | + +---------+ + + + | AST(SGOT) | 22 | <=41 U/L | [facility] | | | | | | LABORATORY | | | | | | SERVICES, | | | | | | [facility] | | [facility] + | | | | | | HEALING | | + +---------+ + + + | ALT (SGPT) | 50 | <=60 U/L | [facility] | | [...] +---------+ + + + | BUN/CREATIN | 18 | 8 - 25 | [facility] | [...] | + + + + + | [facility]ORY | [address] | [place] [address] | | | SERVICES, [facility] | | | | | [facility] + [facility]ALING | | | | + + + + + [facility] - LDH TOTAL, PLASMA (11/03/2019 7:36 AM PDT) + +---------+ + + + | Component | Value | Ref Range | Performed | Pathologist | | | | | At | Signature | + +---------+ + + + | LD TOTAL, | 266 (H) | <=250 U/L | [facility] | | | PLASMA | | | LABORATORY | | | | | | SERVICES, | | | | | | [facility] | | | | | [facility] + | | | | | | HEALING | | + +---------+ + + + | LD CMNT | No Hemo | | [facility] | | | | | | LABORATORY | | | | | | SERVICES, | | | | | | [facility] | | | | | | [...] | + + + + + | [facility] | [address] | [place] [address] | | | [facility], [facility] | | | | | HE[facility] + HEALING | | | | + + + + + [facility] - MAGNESIUM, PLASMA (11/03/2019 7:36 AM PDT) + +-------+ + + + | Component | Value | Ref Range | Performed | Pathologist | | | | | At | Signature | + +-------+ + + + | MAGNESIUM,P | 1.8 | 1.6 - 2.6 mg/dL | [facility] | | | LE[facility] | | | [...] [facility] | [address] | [place] [address] | | | SERVICES, [facility] | | | | | [facility] + HEALING | | | | + + + + + [facility] - PHOSPHORUS, PLASMA (11/03/2019 7:36 AM PDT) + +-------+ + + + | Component | Value | Ref Range | Performed | Pathologist | | | | | At | Signature | + +-------+ + + + | PHOSPHORUS, | 2.8 | 2.4 - 4.7 mg/dL | [facility] [...] LABORATORY | [address] | [place] [address] | | | [facility] | | | | | HEALTH + HEALING | | | | + + + + + CMV PCR QUANTITATION, PLASMA (11/03/2019 7:36 AM PDT) + + [...] 2 fold may not reflect true | [facility] | | biological changes and must [...] | | | Act of 1988. The [facility] Molecular | | | Diagnostic Center is a fully licensed and/or accredited clinical | | | laboratory under CLIA, ARMANDO, and the [facility]. | | + + + + + + + + | Performing | Address | City/State/Zipcode | Phone Number | | Organization | | | | + + + + + | [facility] | [address] | [place] [address] | | | DIAGNOSTIC | [address] | | | | LABORATORIES | | | | + + + + + TACROLIMUS, WHOLE BLOOD (11/03/2019 7:36 AM PDT) + +-------+ [...] | Test performed by immunoassay using [employer] i2000. . | [facility] | | Samples [...] | + + + + + | [facility] | [address] | [place] [address] | | | SERVICES, SPECIAL | [address] [...] we have completed a quantitative polymerase | [facility] | | chain reaction (PCR) based [...] | | performance characteristics determined by the [facility] Molecular | | | Diagnostics Center. [...] | | under CLIA, CAP, and the [facility]. References: 1) | | | Phong [...] | | real-time polymerase chain reaction. Transfusion 2008;48:6780-6158. | | | 4) Bassam SULEIMAN, Genny SCOTTM, Félix I, van keshia Kristen W, et al. | | | Frequent monitoring of Verito-Lorenzo virus DNA load in unfractionated | | | whole blood is essential for early detection of posttransplant | | | lymphoproliferative disease in high-risk patients. Blood | | | 2001;97(5):5225-0414. | | + + + + + + + + | Performing | Address | City/State/Zipcode | Phone Number | | Organization | | | | + + + + + | [facility] | [address] | [place] [address] | | | DIAGNOSTIC | [address] [...] - [facility] | | | | [place] [address] | | | | | | [phone]. | | | | | | Zeferino [...] A: | | | | | | [employer] | | | | + + + [...] [facility] | [address] | [place], [place] | | | [facility] | | [address] | | + + + + + FLT3 ITD, BONE MARROW (11/03/2019 7:36 AM PDT) + + + + + + | Component | Value | Ref Range | Performed | Pathologist | | | | | At | Signature | + + + + + + | FLT3 ITD | Undetected. | - | [facility] | | | | | [...] REFERENCES | 1. Amos Clifford | | [facility] | | | | T, Hunter Tolbert. [...] | | | | | | Amauri DIAZ et al. | | | | | [...] Blood | | | | | | 2007;111:1728-0736. | | | | + + + + + + | DISCLAIMER | This test was developed | | [facility] | | | | and its performance | | DIAGNOSTIC | | | | characteristics | | | | | | determined by the [facility] | | LABORATORIE | | | | [facility] Diagnostic | | S | [...] | | | | | (CLIA). The [facility] | | | | | | Diagnostics | | | | | | Laboratories are fully | | | | | | licensed by the state of | | | | | | [place] under CLIA and | | | | | | are accredited by the | | | | | | [employer] | | | | | | Pathologists (CAP). | | | | | | It Risk Analyst: | | | | | | Tayo [...] + + + + | [facility] | [address] 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 GENOMIC | | | | | | ALTERATIONSIn this | | | | | | post-transplantation | | | | | | marrow sample, the | | | | | | previously identified | | | | | | likely donor derived | | | | | | germline variants remain | | | | | | detectable at a VAF of | | | | | | ~50%.No new clinically | | | | | | significance variants | | | | | | are | | | | | | identified.GeneAlteratio | | | | | | n Classification VAF* | | | | | | Bone Marrow | | | | | | Aspirate11/03/2019 Bone | | | | | | Marrow Aspirate07/28/2019 | | | | | | Bone Marrow | | | | | | Jgnjffpo76/27/2019 Bone | | | | | | Marrow Aspirate03/10/2019 | | | | | | Blood12/02/2018 | | | | | | MAML1p.G124S Tier | | | | | | III(possible donor | | | | | | germline) 53% 53% 53% | | | | | | Undetected Undetected | | | | | | ID3p.D113N Tier | | | | | | III(possible donor | | | | | | germline) 51% 51% 50% | | | | | | Undetected Undetected | | | | | | ID3p.V67M Tier | | | | | | III(possible donor | | | | | | germline) 49% 51% 50% | | | | | | Undetected Undetected | | | | | | FAT4p.V9896L Tier | | | | | | III(possible host | | | | | | germline) Undetected | | | | | | Undetected Undetected | | | | | | 52% 53% KDM6Ap.R165Q | | | | | | Tier III(possible host | | | | | | germline) Undetected | | | | | | Undetected Undetected | | | | | | 51% 50% FAT1p.Q7606G | | | | | | Tier III(possible host | | | | | | germline) Undetected | | | | | | Undetected Undetected | | | | | | 48% 46% TXWLF6i.P756L | | | | | | Tier III(possible host | | | | | | germline) Undetected | | | | | | Undetected Undetected | | | | | | 50% 50% *VAF: variant | | | | | | allele frequency- Locus | | | | | | not evaluated Case | | | | | | reviewed by:Giovanny Romero, | | | | | | MD, FACMG/Clinical | | | | | | Molecular | | | | | | GeneticistJennifer | | | | | | [place], | | | | | | MD/HematopathologistAddi | | | | | | tional Details on | | | | | | Alterations Reported in | | | | | | This Patient:Gene | | | | | | Transcript cDNA Tia | | | | | | Genome Chrom Start End | | | | | | Ref Tia FAT1 [id number] | | | | | | c.3929C>T hg19 chr4 | | | | | | [id number] G A | | | | | | FAT4 OBWV1633.3 | | | | | | c.36094F>A hg19 chr4 | | | | | | [id number] G A | | | | | | SETBP1 BEZS85119.2 | | | | | | c.2267C>T hg19 chr18 | | | | | | 88167614 [id number] C T | | | | | | KDM6A CSYQ31317.1 | | | | | | c.494G>A hg19 chrX | | | | | | 36305427 [id number] G A | | | | | | ID3 INEX975.1 c.337G>A | | | | | | hg19 chr1 [id number] | | | | | | [id number] C T ID3 | | | | | | CYNI338.1 c.199G>A hg19 | | | | | | chr1 [id number] C | | | | | | T MAML1 LHJQ11305.1 | | | | | | c.370G>A hg19 chr5 | | | | | | [id number] G A | | | | | [...] | | | | | GSKIP HAX1 OQHA4J0T | | | | | | HNRNPK [...] PRKCB | | | | | | ALBU81O PRPF8 PRPS1 | | | | | [...] | | | | | | SYNE1 MSG3WF3 TCF3 TCF4 | | | | | | TERC TERT TET2 TNFAIP3 | | | | | | DQPRYE70 TP53 TRAF3 | | | | | [...] of | | | | | | 3172. However, a small | | | | | | fraction (100 minus the | | | | | | percentage in the | | | | | | parenthesis) of the | | | | | | targeted regions of the | | | | | | following genes: RUNX1 | | | | | | (99%), ASXL1 (99%), PCLO | | | | | | (99%), SPEN (99%), | | | | | | NOTCH2 (99%), JAK1 | | | | | | (99%), DTX1 (99%), RAD21 | | | | | | (99%), ARID1B (98%), | | | | | | SETBP1 (98%), CD79A | | | | | | (98%), STAT5B (94%), | | | | | | BRD4 (93%), PMS2 (89%) | | | | | | have a higher low limit | | | | | | of detection of 10-15% | | | | | | VAF (if less than 250 | | | | | | read depth), or could | | | | | | harbor mutations that | | | | | | were missed by this | | | [...] sequencing | | | | | | ([employer] | | | | | | sequencing) using a | | | | | | combination of | | | | | | multiplexed PCR | | | | | | (customized [employer] | | | | | | targeted DNA panel with | | | | | | molecular barcodes) and | | | | | | sequencing on an | | | | | | [employer] platform | | | | | | (NextSeq 500 or 550). | | | | [...] | | | | | | 2016; 127(24):1426-556. | | | | | | 7. [...] (CKB): | | | | | | [email or web address]. | | | | | | CIViC: | | | | | | [email or web address] | | | | + + + + + + | DISCLAIMER | This test was developed | | [facility] | | | | and its performance | | DIAGNOSTIC | | | | characteristics | | | | | | determined by the [facility] | | LABORATORIE | | | [...] | | | | | (CLIA). The [facility] | | | | | | Diagnostics | | | | | | Laboratories are fully | | | | | | licensed by the state of | | | | | | [place] under CLIA and | | | | | | are accredited by the | | | | | | [employer] | | | | | | Pathologists (CAP). | | | | | | It Risk Analyst: | | | | | | Tayo Singletary, | | | | | | Isabela, Ph.D.Reviewed | | | | | | and electronically | | | | | | signed by Sejal | | | | | | MD Burt11/18/2019 4:40 | | | | | | PM [...] + + + + | [facility] | [id number] | [place] [address] | | | DIAGNOSTIC | [address] | | | | LABORATORIES | | | | + + + + + CBC AND AUTO DIFF (11/03/2019 7:36 AM PDT) + + + + + + | Component | Value | Ref Range | Performed | Pathologist | | | | | At | Signature | + + + + + + | WHITE CELL | 5.01 | 3.50 - 10.80 | [facility] | | | COUNT | | K/cu mm | LABORATORY | | | | | | SERVICES, | | | | | | [facility] | | [facility] | | [facility] + | | | | | | HEALING | | + + + + + + | RED CELL | 3.27 (L) | 4.00 - 5.20 | [facility] [...] + + + + | HEMATOCRIT | 32.1 (L) | 36.0 - 46.0 % | [facility] | | | | | | LABORATORY | | | | | | SERVICES, | | | | | | [facility] + | | | | | | [facility] | | + + + + + + | MCV | 98.2 | 80.0 - 100.0 fL | [facility] | | | | | | LABORATORY | | | | | | SERVICES, | | | | | | [facility] + | | | | | | [facility] | | + + + + + + | MCHC | 30.5 (L) | 32.0 - 36.0 | [facility] | | | | | g/dL | LABORATORY | | | | | | SERVICES, | | | | | | [facility] + | | | | | | [facility]ALING | | + + + + + + | RDW SD | 59.7 (H) | 35.1 - 46.3 fL | [facility] | | | | | | LABORATORY | | | | | | SERVICES, | | | | | | [facility] + | | | | | | [facility]ALING | | + + + + + + | PLATELET | 110 (L) | 150 - 400 K/cu | [...] + + + + | NRBC% | 0.4 (H) | 0.0 - 0.3 % | [facility] | | | | | | LABORATORY | | | | | | SERVICES, | | | | | | [facility] + | | | | | | [facility]ALING | | + + + + + + | NRBC# | 0.02 | 0.00 - 0.02 | [facility] | [...] + + + + | LYMPHOCYTE | 17.6 (L) | 18.0 - 42.0 % | [facility] | | | % | | | LABORATORY | | | | | | SERVICES, | | | | | | [facility] + | | | | | | [facility]ALING | | + + + + + + | MONOCYTE % | 15.4 (H) | 3.5 - 9.0 % | [facility] | | | | | | LABORATORY | | | | | | SERVICES, | | | | | | [facility] + | | | | | | [facility]AL[facility] | | + + + + + + | EOS % | 1.0 | 1.0 - 3.0 % | [facility] [...] + + + + | IG% | 5.4 (H) | 0.0 - 1.0 % | [facility] | | | | | | LABORATORY | | | | | | SERVICES, | | | | | | [facility] + | | | | | | [facility]ALING | | + + + + + + | NEUTROPHIL | 3.03 | 1.80 - 7.70 | [facility] | | | # | | K/cu mm | LABORATORY | | | | | | SERVICES, | | | | | | [facility] + | | | | | | [facility]ALING | | + + + + + + | NEUTROPHIL | 3.03Comment: Preliminary | 1.80 - 7.70 | [facility] [...] + + + + | LYMPHOCYTE | 0.88 (L) | 1.00 - 4.80 | [facility] | | | # | | K/cu mm | LABORATORY | | | | | | SERVICES, | | | | | | [facility] + | | | | | | [facility] | | + + + + + + | MONOCYTE # | 0.77 | 0.10 - 0.90 | [facility] | | | | | K/cu mm | LABORATORY | | | | | | SERVICES, | | | | | | [facility] + | | | | | | [facility]AL[facility] | | + + + + + + | EOS # | 0.05 | 0.00 - 0.50 | [facility] | [...] + + + + | IG# | 0.27 (H) | 0.00 - 0.10 | [facility] [...] | + + + + + | [facility] | [address] | [place] [address] | | | [facility] | | | | | [...] + | Chromosome | Normal | | [facility] | | | Results | | | [...] clinical | | | | | | procedure rn. | | | | + + + [...] | | | | determined by the [facility] | | LABORATORIE | | | [...] | | | | | (CLIA). The [facility] | | | | | | Diagnostics | | | | | | Laboratories are fully | | | | | | licensed by the state of | | | | | | [place] under CLIA and | | | | | | are accredited by the | | | | | | [employer] | | | | | | [employer] ([employer]). | | | | | | It Risk Analyst: | | | | | | Tayo Singletary, | | | | | | M.Hunter., | | | | | | Ph.D.Electronically | | | | | | reviewed and signed | | | | | | by:Chuy Acuna, PhD, | | | | | | FACMGClinical | | | | | | Assistant Food Service Director Clinical | | | | | | Molecular | | | | | | Geneticist11/08/2019 at | | | | | | 3:04 PMReviewed and | | | | | | electronically signed by | | | | | | CONG CINTRON, | | | | | | MDFACMG11/08/2019 4:15 | | | | | | [...] + + + | [facility] | [address] | [place] [address] | | | DIAGNOSTIC | [address] | | | | LABORATORIES | | | | + + + + + LYMPHOCYTE ACTIVATION(LYMPH RECONSTITUTION/ACTIVATE),BLOOD (11/03/2019 7:36 AM PDT) [...] % of | [facility] | | | -[id number]+) | | Lymphs | LABORATORY | | | % | | | SERVICES, | | | | | | SPECIAL IMM | | | | | | + COAG | | + + + + + + | T-REG(4+127 | 18 | Cells/uL | [facility] | | | -[id number]+) | | | LABORATORY | | | [...] PD1(CD279) HLA-DR IgD TCR a/b TCR g/d [place] | | | Lambda (Analyte specific reagents are used in many laboratory | | | tests necessary for standard medical care. This test was developed and | | | its performance characteristics determined by [facility] [facility] [employer]. It | | | has not been [...] | + + + + + | [facility] | [address] [facility] | [place] [address] | | | SERVICES, SPECIAL | PARK [...] LABORATORY | | performance characteristics determined by [facility] [employer]. It has | SERVICES, | | not [...] | + + + + + | [facility] | [address] | [place] [address] | | | SERVICES, SPECIAL | PARK [...] 504 (L)Comment: | [phone] | [facility] | | | | REFERENCE INTERVAL: | mg/dL | REG UNIV | | | | Immunoglobulin G Access | | PTH - INTFC | | | | complete set of age- | | | | | | and/or gender-specific | | | | | | reference intervals for | | | | | | this test in the [facility] | | | | | | Laboratory Test | | | | | | Directory | | | | | | ([employer]).Performed | | | | | | by [employer],[address] | | | | | | [address], [facility] [place] | | | | | | [address] | | | | | | [phone].[employer] | | | | | | [place] human resource ssdZeferino MD, | | | | | | [...] [facility] | [address] | [place], [place] | | | UNIV PTH - INTFC | | [address] | | + + + + + [...] | | | this test in the [facility] | | | | | | Laboratory Test | | | | | | Directory | | | | | | ([employer]).Performed | | | | | | by [employer],[address] | | | | | | [address] Nguyen, [facility] [place] | | | | | | [address] | | | | | | [phone].[employer] | | | | | | LabStyle InnovationsZeferino MD, | | | | | | Lab. Director | | | | + + + + + + + + | Specimen | + + | Blood - Blood | | (substance) | + + + + + + + | Performing | Address | City/State/Zipcode | Phone Number | | Organization | | | | + + + + + | [facility] | [address] | [place], [place] | | | UNIV PTH - INTFC | | [address] | | + + + + + [...] | | | this test in the [facility] | | | | | | Laboratory Test | | | | | | Directory | | | | | | ([employer]).Performed | | | | | | by [employer],[address] | | | | | | [address], [facility] [place] | | | | | | [address] | | | | | | [phone].[employer] | | | | | | [place] ssd, Zeferino Wolf MD, | | | | [...] [facility] | [address] | [place], [place] | | | UNIV PTH - INTFC | | [address] | | + + + + + VITAMIN D, 25-HYDROXY, SERUM (11/03/2019 7:36 AM [...] [facility] | [address] | [place] [address] | | | SERVICES, CORE | JASON [...]
--- OUTSIDE RECORDS SUMMARY | ~2020-03-12 | XMS | Encounter Summary ---
Demographics + + + | Address | [address] | | | [place] [address] | + + + | Home Phone [...] Team Providers + +------+ + | Care Licensed Life And Health Agent Name | Role | Phone | + +------+ + | Meredith Sanchez | PCP | | + +------+ + Reason for Visit + +--------+ + | Reason | Onset | Comments | | | Date | | + +--------+ + | Medication | 05/31/ | | | management | 2019 | | + +--------+ + Encounter Details +--------+ + + + + | Date | Type | Department | Care Team | Description | +--------+ + + + + | 12/03/ | Telephone | Center for | Apple Bergeron, | Medication | | 2019 | | Hematologic | [place] [address] | management | | | | Malignancies at | [facility] | | | | | [facility] | [place], [place] | | | | | [address] | [address] | | | | | Loop Mailcode: | [phone] | | | | | [id number] | | | | | | [facility] [place], | | | | | | [place] [address] | | | | | | [phone] | | | +--------+ + + + [...] this encounter Miscellaneous Notes Telephone Encounter - Isai Vargas MA - 06/01/2019 6:04 PM PSTFormatting of this no te might be different from the original. Result Follow-up CSA level: Lab Results Component Value Date FK506 6.3 05/31/2019 Nona's dose will remain the same per LACY Fung. Nona and/or her caregiver have been contacted and were able to provide verbal read back o f these instructions. elephone Encounte r - Qasim Jensen MA - 05/31/2019 3:04 PM PST Result Follow-up CSA level: Lab Results Component Value Date FK506 6.3 05/31/2019 Nona's dose will remain the same per LACY Fung. A message was left with Nona to return this phone call by 6pm today. 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 Nona has been advised of when to [...] her last dose at 2100 (time) on 05/30 (date). documented in this enco unter Plan of Treatment Not on filedocumented as of this encounter Visit Diagnoses Not on filedocumented in this encounter"
--- OUTSIDE RECORDS SUMMARY | ~2020-03-12 | XMS | Encounter Summary ---
Demographics + + + | Address | [address] | | | [place] [address] | + + + | Home Phone | | + + + | Preferred Language | Unknown | + + + | Marital Status | Single | + + + | Spiritism Affiliation | NRP | + + + [...] Team Providers + +------+ + | Care Custodial Supervisor Name | Role | Phone | + +------+ + | Meredith Sanchez | PCP | | + +------+ + Encounter Details +--------+ + + + + | Date | Type | Department | Care Team | Description | +--------+ + + + + | 04/23/ | Lab | [facility] [address] [facility] | | | 2019 | Requisition | [address] | N, DO [address] | | | | | [place], [place] | [address] | | | | | [address] | [place], [place] | | | | | | [address] | | | | | | [phone] | | | | | | | [...] | + +--------+ + + + | DONOR ENGRAFTMENT | Routin | 08/06/2016 | Bone marrow donor | Results for this | | STORAGE, BLOOD | e | 9:11 AM | | procedure are in the | | | | PST | | results section. | + +--------+ + + + documented in this encounter Results DONOR ENGRAFTMENT STORAGE, BLOOD (08/06/2016 9:11 AM PST) + + + + + + | Component | Value | Ref Range | Performed | Pathologist | | | | | At | Signature | + + + + + + | INTERPRETAT | Donor Name: NMDP | | [facility] | | | ION | [id number] Gender: | | DIAGNOSTIC | | | | MDate of Transplant: | | | | | | 04.22.2019Recipient | | LABORATORIE | | | | Name: Nona Hopper | | S | | | | Tatianna (MR | | | | | | [id number])Sufficient DNA | | | | | | was isolated from the | | | | | | donor specimen and will | | | | | | be kept in the [facility] | | | | | | [facility] | | | | | | Laboratories in a manner | | | | | | consistent with it | | | | | | remaining medically | | | | | | viable for | | | | | | post-transplant | | | | | | engraftment monitoring. | | | | + + + + + + | METHOD(S) | Upon your request, DNA | | [facility] | | | | was isolated from the | | DIAGNOSTIC | | | | donor specimen using a | | | | | | Qiagen column or salt | | LABORATORIE | | | | precipitation method. | | S | | | | Isolated DNA from the | | | | | | donor specimen will be | | | | | | kept in the [facility] | | | | | | Diagnostic [...] | | | | | convenience at (439) | | | | | | [phone]. | | | | + + + + + + | DISCLAIMER | This test was developed | | [facility] | | | | and its performance | | DIAGNOSTIC | | | | characteristics | | | | | | determined by the [facility] | | LABORATORIE | | | | [facility] | | S | | | [...] of | | | | | | [place] under CLIA and | | | | | | are accredited by the | | | | | | [employer] | | | | | | Pathologists (CAP). | | | | | | Per Diem Nurse: | | | | | | Tayo Singletary, | | | | | | Isabela, Ph.D. | | | | + + + + + + | DONOR | Sufficient DNA for | | [facility] | | | ENGRAFTMENT | testing. | | DIAGNOSTIC | | | SAMPLE | | | | | | STORAGE | | | LABORATORIE | | | | | | S | | + + + + + + + + | Specimen | + + | Cord blood - Blood | | (substance) | + + + + + + + | Performing | Address | City/State/Zipcode | Phone Number | | Organization | | | | + + + + + | [facility] | [address] | [place] [address] | | | DIAGNOSTIC | [address] | | | | LABORATORIES | | | | + + + + + documented in this encounter Visit Diagnoses + + | Diagnosis | + + | Bone marrow donor | + + documented in this encounter"
--- OUTSIDE RECORDS SUMMARY | ~2020-03-12 | XMS | Encounter Summary ---
Demographics + + + | Address | [address] | | | [place] [address] | + + + | Home Phone | | + + + | Preferred Language | Unknown | + + + | Marital Status | Single | + + + | Oriental Orthodox Affiliation | NRP | + + [...] Providers + +------+ + | Care Color Matcher Name | Role | Phone | + +------+ + | Meredith Sanchez | PCP | | + +------+ + Encounter Details +--------+ + + + + | Date | Type | Department | Care Team | Description | +--------+ + + + + | 03/10/ | Hospital | Cardiac | Sjh, Car Ecg Tech | | | 2019 | Encounter | Non-Invasive Testing | [address] | | | | | at [facility] | [facility] | | | | | [address] | [place] [address] | | | | | [address] | | | | | | [place], [address] [place] [address] | | | | | | [place], [place] | | | | | | [address] | | | | | | [phone] | | | +--------+ + + + [...] + + documented in this encounter Results 12 LEAD ECG (03/10/2019 1:53 PM PDT) [...] + + + + + | [facility] | [address] | [place], [place] | | | CARDIOLOGY | [address] | [address] | | + + + + + documented in this encounter Visit Diagnoses Not on filedocumented in this encounter"
--- OUTSIDE RECORDS SUMMARY | ~2020-03-12 | XMS | Encounter Summary ---
Demographics + + + | Address | [address] | | | [place] [address] | + + + | Home Phone [...] Team Providers + +------+ + | Care Hydro Electric Station Operator Name | Role | Phone | + +------+ + | Meredith Sanchez | PCP | | + +------+ + Encounter Details +--------+ + + + + | Date | Type | Department | Care Team | Description | +--------+ + + + + | 04/22/ | Pharmacy | Specialty Pharmacy | | | | 2019 | Visit | Services [address] | | | | | [address] | | | | | | [place], [place] | | | | | | [address] | | | | | | [phone] | | | +--------+ + + + [...]
--- OUTSIDE RECORDS SUMMARY | ~2020-03-12 | XMS | Encounter Summary ---
Demographics + + + | Address | [address] | | | [place] [address] | + + + | Home Phone [...] Team Providers + +------+ + | Care Home Demonstration Agent Name | Role | Phone | + +------+ + | Meredith Sanchez | PCP | | + +------+ + Reason for Visit + +--------+ + | Reason | Onset | Comments | | | Date | | + +--------+ + | Covid19 Screening | 11/01/ | | | | 2020 | | + +--------+ + Encounter Details +--------+ + + + + | Date | Type | Department | Care Team | Description | +--------+ + + + + | 11/01/ | Telephone | [facility] | Sejal De La [facility]re | Covid19 Screening | | 2020 | | Clinics at S | N, DO [address] | | | | | [place] [address] | [facility] | | | | | [facility] for | [place], [place] | | | | | Health and Healing, | [address] | | | | | [address] | [phone] | | | | | [place], [place] | | | | | | [address] | | | | | | [phone] | | | +--------+ + + + [...] this encounter Miscellaneous Notes Telephone Encounter - Flavio Peacock MA - 11/02/2019 2:18 PM PDTKCI COVID-19 24 hr Scr een Symptoms: Cough: No If yes, how long: Fever: No If yes, how long: If yes, temp: Sore Throat: No If yes, how long: Shortness of Breath: No If yes, how long: Exposure Assessment: Tested for COVID-19: No If yes, result: Contact with COVID-19 Positive or Suspected Individual: No If yes, describe level of contact: For positive screenings, forward to Triage for followup. Provider will assess for risk and medical necessity of visit. PAS will update all [facility] appt notes with RESP ISO documented in this encounter Plan of Treatment Not on filedocumented as of this encounter Visit Diagnoses Not on filedocumented in this encounter"
--- OUTSIDE RECORDS SUMMARY | ~2020-03-12 | XMS | Encounter Summary ---
Demographics + + + | Address | [address] | | | [place] [address] | + + + | Home Phone [...] Team Providers + +------+ + | Care Chemist Instrumentation Name | Role | Phone | + +------+ + | Meredith Sanchez | PCP | | + +------+ + Reason for Visit + +--------+ + | Reason | Onset | Comments | | | Date | | + +--------+ + | Research | 09/28/ | | | Documentation | 2019 | | + +--------+ + Encounter Details +--------+ + + + + | Date | Type | Department | Care Team | Description | +--------+ + + + + | 09/28/ | Documentati | [facility] | Heriberto Fonseca | Research | | 2020 | on | Clinics at S | [address] | Documentation | | | | [place] [address] [place], | | | | | [facility] | [place] [address] | | | | | Health and Healing, | | | | | | [address] | | | | | | [place], [place] | | | | | | [address] | | | | | | [phone] | | | +--------+ + + + [...] this encounter Miscellaneous Notes Telephone Encounter - Marian Heriberto - 09/29/2019 12:22 PM PDTSubject Name: Nona garcia Date of : 1965 IRB Number: [id number] Subject ID: [id number] Date: 09/29/2019 Visit name: Day 180 Due to COVID-19 precautions, research procedures for this visit were modified. At the direc tion of the principal network architect, the following modifications were made: Visit was moved to a telemedicine call Labs: CBC w diff, CMP, magnesium, lymphocyte activation, chimerism, Serum IGA, IGM, IGG jennifer l not be drawn at [facility]. TBD if these labs can be coordinated to be drawn locally. Vitals: Will not be collected Office Visit: Conducted Virtually Bone Marrow: N/A at this time PROs/ Questionnaires: Subject has been provided link to complete questionnaires online. Declaration page will be missed because she can not be print the page at her residence. During the call, it was noted Nona started a cough and runny nose last week 21SEP2019, an d has only taken OTC Nyquil night time PRN to treat (started same day). No other s/s associ ated with this illness. Hemorrhoid pain resolved 04AUG2019. internet marketing coordinator, Heriberto Fonseca documented in this encount er Plan of Treatment Not on filedocumented as of this encounter Visit Diagnoses Not on filedocumented in this encounter"
--- OUTSIDE RECORDS SUMMARY | ~2020-03-12 | XMS | Encounter Summary ---
Demographics + + + | Address | [address] | | | [place] [address] | + + + | Home Phone [...] Team Providers + +------+ + | Care Livestock Agent Name | Role | Phone | + +------+ + | Meredith Sanchez | PCP | | + +------+ + Reason for Visit + +--------+ + | Reason | Onset | Comments | | | Date | | + +--------+ + | Medication | 02/22/ | [facility] [place] | | Adjustment | 2019 | | + +--------+ + Encounter Details +--------+ + + + + | Date | Type | Department | Care Team | Description | +--------+ + + + + | 02/22/ | Telephone | [facility] | Katelyn Corneliusn | Medication | | 2020 | | Clinics at S | M, ELECTRICAL PROJECT MANAGER [address] | Adjustment (IST | | | | [place] [address] | [place]) | | | | [facility] for | [place], [place] | | | | | Health and Healing, | [address] | | | | | [address] | [phone] | | | | | [place], [place] | | | | | | [address] | | | | | | [phone] | | | +--------+ + + + [...] Telephone Encounter - Tayo Osborne MA - 02/23/2020 4:28 PM PDTFormatting of this no te might be different from the original. Result Follow-up CSA level: Lab Results Component Value Date FK506 7.2 02/23/2020 Nona's dose will remain the same per Cathy Cornelius NP. Patient and/or their caregiver verified they are taking 0.5mg every morning except nothing Cheryl Guzman, Andrez. Initial Assessment Nona Hopper's contact manager for today is patient, Nona Hopper, and her conta ct phone number for today 02/22 is: [phone]. Nona has been advised of when to expect a confirmation call regarding any necessary dose adjustments: yes. Nona was asked to contact this clinic if she has not received a confirma tion call within 24 hours. Nona reports she currently takes Tacrolimus 0.5mg every morning except nothing Tue, Cheryl, Sat. This is the correct dose according to her most recent dose adjustment. Nona took her last dose at 2130 (time) on 02/22/20 (date). documented in this encounter Plan of Treatment Not on filedocumented as of this encounter Visit Diagnoses Not on filedocumented in this encounter"
--- OUTSIDE RECORDS SUMMARY | ~2020-03-12 | XMS | Encounter Summary ---
Demographics + + + | Address | [address] | | | [place] [address] | + + + | Home Phone [...] Team Providers + +------+ + | Care Etl Tester Name | Role | Phone | [...] [address] | | | | | [place], [place] | [place], [place] | | | | | [address] | [address] | | | | | | [phone] | | | | | | | [...] Myelodysplastic | | | | e | 9:18 AM | syndrome, | | | | | PDT | unspecified (HCC) | | + +--------+ + + + | [facility] THAW | Routin | 04/22/2019 | Myelodysplastic | Results for this | | | e | 9:18 AM | syndrome, | procedure are in the | | | | PDT | unspecified (HCC) | results section. | + +--------+ + + + documented in this encounter Results [facility] WASH (04/22/2019 9:18 AM PDT) + + | Specimen | + + | Cord blood | + + + + + + + | Performing | Address | City/State/Zipcode | Phone Number | | Organization | | | | + + + + + | [facility] | [address] | [place], [place] | | | THERAPY LAB | [address] | [address] | | + + + + + [facility] THAW (04/22/2019 9:18 AM PDT) + + + + + + | Component | Value | Ref Range | Performed | Pathologist | | | | | At | Signature | + + + + + + | PRODUCT | URD HPC, Cord Blood | | [facility] | | | TYPE | [id number] | | CELL | | | | [...] + + + + | PRODUCT | 109 | mL | [facility] | | | VOLUME TX | | | CELL | | | | | | PROCESSING | | | | | | LAB | | + + + + + + | CD34 DOSE | 0.07 | x10 6/Kg | [facility] | | | | | | CELL | | | | | | PROCESSING | | | | | | LAB | | + + + + + + | TNC DOSE | 2.55 | x10 7/Kg | [facility] | | | | | | CELL | | | | | | PROCESSING | | | | | | LAB | | + + + + + + | TMNC DOSE | 0.74 | x10 7/Kg | [facility] | | | | | | CELL | | | | | | PROCESSING | | | | | | LAB | | + + + + + + | HPCC THAW | 0.42 | x10 7/kg | [facility] | [...] | [facility] | [address] | [place], [place] | | | THERAPY LAB | [address] | [address] | | + + + + + | [facility] | [address] | [place], [place] | | | PROCESSING LAB | [address] | [address] | | + + + + + documented in this encounter Visit Diagnoses + + | Diagnosis | + + | Myelodysplastic syndrome, unspecified (HCC) Myelodysplastic syndrome, unspecified | + + documented in this encounter"
--- OUTSIDE RECORDS SUMMARY | ~2020-03-12 | XMS | Encounter Summary ---
Demographics + + + | Address | [address] | | | [place] [address] | + + + | Home Phone [...] Team Providers + +------+ + | Care Software Engineer Web Services Name | Role | Phone | + [...] | +--------+ + + + + | 08/31/ | Hospital | [facility] | | | | 2020 | Encounter | Clinics at S | | | | | | [facility] [address] | | | | | | [facility] | | | | | | [facility] and Healing, | | | | | | [address] | | | | | | [place], [place] | | | | | | [address] | | | | | | [phone] | | | +--------+ + + + [...] documented as of this encounter Progress Notes Mario Owen MA - 09/01/2019 10:00 AM PSTVenipuncture performed in clinic, blood sample o btained from Right antecubital site documented in this enco unter Plan of Treatment Not on filedocumented as of this encounter Procedures + +--------+ + + + | Procedure Name | Priori | Date/Time | Associated Diagnosis | Comments | | | ty | | | | + +--------+ + + + | [facility] - MAGNESIUM, | Routin | 09/01/2019 | S/P cord blood | Results for this | | PLASMA | e | 10:16 AM | transplantation MDS | procedure are in the | | | | PST | (myelodysplastic | results section. | | | |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) | | + +--------+ + + + | [facility] - PHOSPHORUS, | Routin | 09/01/2019 | S/P cord blood | Results for this | | PLASMA | e | 10:16 AM | transplantation MDS | procedure are in the | | | | PST | (myelodysplastic | results section. | | | |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) | | + +--------+ + + + | [facility] - LDH TOTAL, | Routin | 09/01/2019 | S/P cord blood | Results for this | | PLASMA | e | 10:16 AM | transplantation MDS | procedure are in the | | | | PST | (myelodysplastic | results section. | | | |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) | | + +--------+ + + + | CBC AND AUTO DIFF | Routin | 09/01/2019 | S/P cord blood | Results for this | | | e | 10:16 AM | transplantation MDS | procedure are in the | | | | PST | (myelodysplastic | results section. | | | |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) | | + +--------+ + + + | VERITO-SEVILLA VIRUS | Routin | 09/01/2019 | S/P cord blood | Results for this | | PCR, PLASMA | e | 10:16 AM | transplantation | procedure are in the | | | | PST | | results section. | + +--------+ + + + | [facility] - COMPLETE | Routin | 09/01/2019 | S/P cord blood | Results for this | | METABOLIC SET | e | 10:16 AM | transplantation MDS | procedure are in the | | | | PST | (myelodysplastic | results section. | | | | | syndrome) ([facility]) | | + +--------+ + + + | [facility] CBC W | Routin | 09/01/2019 | S/P cord blood | Results for this | | DIFFERENTIAL | e | 10:16 AM | transplantation MDS | procedure are in the | | | | PST | (myelodysplastic | results section. | | | | | syndrome) ([facility]) | | + +--------+ + + + | CMV PCR | Routin | 09/01/2019 | S/P cord blood | Results for this | | QUANTITATION, PLASMA | e | 10:16 AM | transplantation MDS | procedure are in the | | | | PST | (myelodysplastic | results section. | | | | | syndrome) ([facility]) | | + +--------+ + + + | TACROLIMUS, WHOLE | Routin | 09/01/2019 | S/P cord blood | Results for this | | BLOOD | e | 10:16 AM | transplantation MDS | procedure are in the | | | | PST | (myelodysplastic | results section. | | | |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) | | + +--------+ + + + | HUMAN HERPES VIRUS 6 | Routin | 09/01/2019 | S/P cord blood | Results for this | | PCR (PLASMA OR CSF) | e | 10:16 AM | transplantation | procedure are in the | | | | PST | | results section. | + +--------+ + + + documented in this encounter Results CBC AND AUTO DIFF (09/01/2019 10:16 AM PST) + + + + + + | Component | Value | Ref Range | Performed | Pathologist | | | | | At | Signature | + + + + + + | WHITE CELL | 6.60 | 3.50 - 10.80 | [facility] | | | COUNT | | K/cu mm | LABORATORY | | | | | | SERVICES, | | | | | | [facility] + | | | | | | [facility] | | + + + + + + | RED CELL | 3.22 (L) | 4.00 - 5.20 | [facility] [...] + + + + | MCV | 97.8 | 80.0 - 100.0 fL | [facility] [...] + + + | RDW SD | 63.7 (H) | 35.1 - 46.3 fL | [facility] | | | | | | LABORATORY | | | | | | SERVICES, | | | | | | [facility] + | | | | | | [facility]ALING | | + + + + + + | PLATELET | 123 (L) | 150 - 400 K/cu | [facility] | | | COUNT | | mm | LABORATORY | | | | | | SERVICES, | | | | | | [facility] + | | | | | | [facility]ALING | | + + + + + + | MPV | 13.3 (H) | 9.7 - 12.3 fL | [...] + + + + | NEUTROPHIL | 66.6 | 50.0 - 70.0 % | [facility] | | | % | | | LABORATORY | | | | | | SERVICES, | | | | | | [facility] | | [facility] + | | | | | | HEALING | | + + + + + + | LYMPHOCYTE | 15.3 (L) | 18.0 - 42.0 % | [facility] | | | % | | | LABORATORY | | | | | | SERVICES, | | | | | | [facility] | | [facility] + | | | | | | HEALING | | + + + + + + | MONOCYTE % | 12.7 (H) | 3.5 - 9.0 % | [facility] | | | | | | LABORATORY | | | | | | SERVICES, | | | | | | [facility] | | [facility] + | | | | | | HEALING | | + + + + + + | EOS % | 0.5 (L) | 1.0 - 3.0 % | [...] + + + + | NEUTROPHIL | 4.40 | 1.80 - 7.70 | [facility] | | | # | | K/cu mm | LABORATORY | | | | | | SERVICES, | | | | | | [facility] | | [facility] + | | | | | | HEALING | | + + + + + + | NEUTROPHIL | 4.40Comment: Preliminary | 1.80 - 7.70 | [facility] [...] + + + + | LYMPHOCYTE | 1.01 | 1.00 - 4.80 | [facility] | | | # | | K/cu mm | LABORATORY | | | | | | SERVICES, | | | | | | [facility] | | | [facility] + | | | | | | HEALING | | + + + + + + | MONOCYTE # | 0.84 | 0.10 - 0.90 | [facility] | | | | | K/cu mm | LABORATORY | | | | | | SERVICES, | | | | | | [facility] | | | [facility] + | | | | | | HEALING | | + + + + + + | EOS # | 0.03 | 0.00 - 0.50 | [facility] | [...] + + + + | IG# | 0.31 (H) | 0.00 - 0.10 | [facility] | | | | | K/cu mm | LABORATORY | | | | | | SERVICES, | | | | | | [facility] | | | | | | [...] | included in the neutrophil count. | [facility] | | HE[facility] + | | | HEALING | + + + + + + + + | Performing | Address | City/State/Zipcode | Phone Number | | Organization | | | | + + + + + | [facility] | [address] | [place] [address] | | | SERVICES, [facility] | | | | | HEALTH + HEALING | | | | + + + + + [facility] - COMPLETE METABOLIC SET (09/01/2019 10:16 AM PST) + +---------+ + + + | Component | Value | Ref Range | Performed | Pathologist | | | | | At | Signature | + +---------+ + + + | GLUCOSE, | 106 (H) | 70 - 99 mg/dL | [...] +---------+ + + + | CREATININE | 0.85 | 0.60 - 1.10 | [facility] | [...] | | | LABORATORY | | | NIGERIEN | | | SERVICES, | | | [...] +---------+ + + + | CALCIUM, | 8.4 (L) | 8.6 - 10.2 | [facility] [...] + + + | ALT (SGPT) | 37 | <=60 U/L | [facility] | | [...] +---------+ + + + | BUN/CREATIN | 36 (H) | 8 - 25 | [facility] [...] MDRD equation recommended by the National | [facility] | | Kidney Disease Education Program. [...] LABORATORY | [address] | [place] [address] | | | [facility] | | | | | HEALTH + HEALING | | | | + + + + + [facility] - MAGNESIUM, PLASMA (09/01/2019 10:16 AM PST) + +-------+ + + + | Component | Value | Ref Range | Performed | Pathologist | | | | | At | Signature | + +-------+ + + + | MAGNESIUM,P | 1.7 | 1.6 - 2.6 mg/dL | [facility] | | | LASMA | | | LABORATORY | | | | | | [facility], | | | | | | [facility] | | | | | | [...] | + + + + + | [facility]ATORY | [address] | [place] [address] | | | SERVICES, [facility] | | | | | HEALTH + HEALING | | | | + + + + + [facility] - LDH TOTAL, PLASMA (09/01/2019 10:16 AM PST) + +---------+ + + + | Component | Value | Ref Range | Performed | Pathologist | | | | | At | Signature | + +---------+ + + + | LD TOTAL, | 230 | <=250 U/L | [facility] | | [...] [facility] | [address] | [place] [address] | | | [facility] | | | | | HEALTH + HEALING | | | | + + + + + [facility] - PHOSPHORUS, PLASMA (09/01/2019 10:16 AM PST) + +-------+ + + + [...] [facility] | [address] | [place] [address] | | | SERVICES, [facility] | | | | | HE[facility] + HEALING | | | | + + + + + CMV PCR QUANTITATION, PLASMA (09/01/2019 10:16 AM PST) + + [...] | | | characteristics determined by the [facility] [place] | | | [facility]. It has not been cleared or approved by | | | the Food and Drug Administration. FDA approval is not required for | | | clinical use of this test, and therefore validation was done as | | | required under the requirements of the Clinical Laboratory Improvement | | | Act of 1988. The [facility] Molecular | | | Diagnostic Center is a fully licensed and/or accredited clinical | | | laboratory under CLIA, CAP, and the [facility]. | | + + + + + + + + | Performing | Address | City/State/[facility] Facilitycode | Phone Number | | Organization | | | | + + + + + | [facility] | [address] | [place] [address] | | | DIAGNOSTIC | [address] | | | | LABORATORIES | | | | + + + + + TACROLIMUS, WHOLE BLOOD (09/01/2019 10:16 AM PST) + +-------+ + + + | Component | Value | Ref Range | Performed | Pathologist | | | | | At | Signature | + +-------+ + + + | TACROLIMUS | 8.4 | 5.0 - 15.0 | [facility] | [...] | Test performed by immunoassay using [employer] i2000. . | [facility] | | [...] | + + + + + | [facility] | [address] | [place] [address] | | | SERVICES SPECIAL | [address] | | | | IMM + COAG | | | | + + + + + VERITO-SEVILLA VIRUS PCR, PLASMA (09/01/2019 10:16 AM PST) [...] we have completed a quantitative polymerase | [facility] | | chain reaction (PCR) based study [...] | | performance characteristics determined by the [facility] Molecular | | | [...] Act of 1988. | | | The [facility] is a fully licensed and/or accredited clinical laboratory | | | under CLIA, CAP, and the State [facility]. References: 1) | | | Phong [...] | Manjula SD, Barrera T, Bailee P, sIaura SK, Miguel A. Herpesvirus | | | prevalence and viral load in healthy blood donors by quantitative | | | real-time polymerase chain reaction. Transfusion 2008;48:8671-2171. | | | 4) Bassam SULEIMAN, Genny CASAS, Félix I, van keshia Bij W, et al. | | | Frequent monitoring of Verito-Sevilla virus DNA load in unfractionated | | | whole blood is essential for early detection of posttransplant | | | lymphoproliferative disease in high-risk patients. Blood | | | 2001;97(5):3024-6665. | | + + + + + + + + | Performing | Address | City/State/Zipcode | Phone Number | | Organization | | | | + + + + + | [facility] | [address] | [place] [address] | | | DIAGNOSTIC | [address] [...] - [facility] | | | | [place] [address] | | | | | | [phone] | | | | | | Zeferino [...] A: | | | | | | Girls Guide To/CS | | | | + + + [...] [facility] | [address] | [place], [place] | | | [facility] | | [address] | | + + + + + documented in this encounter Visit Diagnoses + + | Diagnosis | + + | S/P cord blood transplantation Other specified organ or tissue replaced by transplant | + + | MDS (myelodysplastic syndrome) (HCC) Myelodysplastic syndrome, unspecified | + + documented in this encounter"
--- OUTSIDE RECORDS SUMMARY | ~2020-03-12 | XMS | Encounter Summary ---
Demographics + + + | Address | [address] | | | [place] [address] | + + + | Home Phone [...] Team Providers + +------+ + | Care Scale Technician Name | Role | Phone | + +------+ + | Meredith Sanchez | PCP | | + +------+ + Encounter Details +--------+ + + + + | Date | Type | Department | Care Team | Description | +--------+ + + + + | 05/09/ | Quality Control Director | [facility] | Diane Grace, | | | 2019 | | Clinics at S | [facility] [address] | | | | | [facility] [address] | | | | | Reji Callahan [place] for | [place], [place] | | | | | Health and Healing, | [address] | | | | | [address] | [phone] | | | | | [place], [place] | | | | | | [address] | | | | | | [phone] | | | +--------+ + + + [...]
--- OUTSIDE RECORDS SUMMARY | ~2020-03-12 | XMS | Encounter Summary ---
Demographics + + + | Address | [address] | | | [place] [address] | + + + | Home Phone [...] Team Providers + +------+ + | Care Dough Panner Name | Role | Phone | + +------+ + | Meredith Sanchez | PCP | | + +------+ + Encounter Details +--------+ + + + + | Date | Type | Department | Care Team | Description | +--------+ + + + + | 07/28/ | Pharmacy | Pharmacy @ [facility] | | | | 2019 | Visit | [address] | | | | | | Reji Callahan Mailcode: | | | | | | [facility] | | | | | | and Healing, | | | | | | [address] | | | | | | [place], [place] | | | | | | [address] | | | +--------+ + + + [...]
--- OUTSIDE RECORDS SUMMARY | ~2020-03-12 | XMS | Encounter Summary ---
Demographics + + + | Address | [address] | | | [place] [address] | + + + | Home Phone [...] Providers + +------+ + | Care Waste Hand Name | Role | Phone | + +------+ + | Meredith Sanchez | PCP | | + +------+ + Encounter Details +--------+--------+ + + + | Date | Type | Department | Care Team | Description | +--------+--------+ + + + | 05/24/ | Travel | | | | | [...]
--- OUTSIDE RECORDS SUMMARY | ~2020-03-12 | XMS | Encounter Summary ---
Demographics + + + | Address | [address] | | | [place] [address] | + + + | Home Phone [...] Team Providers + +------+ + | Care Sociology Professor Name | Role | Phone | + +------+ + | Meredith Sanchez | PCP | | + +------+ + Encounter Details +--------+ + + + + | Date | Type | Department | Care Team | Description | +--------+ + + + + | 07/26/ | Pharmacy | Pharmacy @ [facility] | | | | 2019 | Visit | [address] | | | | | | Reji Callahan Mailcode: | | | | | | [facility] | | | | | | and Healing, | | | | | | [address] | | | | | | [place], [place] | | | | | | [address] | | | +--------+ + + + [...]
--- OUTSIDE RECORDS SUMMARY | ~2020-03-12 | XMS | Encounter Summary ---
Demographics + + + | Address | [address] | | | [place] [address] | + + + | Home Phone [...] Providers + +------+ + | Care Laborer Golf Course Name | Role | Phone | + +------+ + | Meredith Sanchez | PCP | | + +------+ + Encounter Details +--------+ + + + + | Date | Type | Department | Care Team | Description | +--------+ + + + + | 03/10/ | Results/Int | Pulmonary Function | | Chronic obstructive | | 2019 | erpretation | Lab at [facility] [address] | | pulmonary disease, | | | | [address] | | unspecified COPD | | | | [facility] | | type (HCC) (Primary | | | | [place], [place] | | Dx) | | | | [address] | | | | | | [phone] | | | +--------+ + + + [...] documented as of this encounter Progress Notes Jose Alberto Constantino MD - 03/10/2019 11:45 AM PDT Refer to PFT report. d ocumented in this encounter Plan of Treatment Not on filedocumented as of this encounter Procedures + +--------+ + + + | Procedure Name | Priori | Date/Time | Associated Diagnosis | Comments | | | ty | | | | + +--------+ + + + | [facility] DIFFUSING | Routin | 03/24/2019 | Chronic | | | CAPACITY | e | 10:07 AM | obstructive | | | | | PDT | pulmonary disease, | | | | | | unspecified COPD | | | | | | type ([facility]) | | + +--------+ + + + | [facility] SPIROMETRY TEST | Routin | 03/24/2019 | Chronic | | | | e | 10:07 AM | obstructive | | | | | PDT | pulmonary disease, | | | | | | unspecified COPD | | | | | | type ([facility]) | | + +--------+ + + + | SPIROMETRY, PULM | Routin | 03/10/2019 | MDS | Results for this | | FUNCTION LAB | e | 11:32 AM | (myelodysplastic | procedure are in the | | | | PDT | syndrome) ([facility]) | results section. | | | | | Encounter for | | | | | | long-term current | | | | | | use of medication | | + +--------+ + + + documented in this encounter Visit Diagnoses + + | Diagnosis | + + | Chronic obstructive pulmonary disease, unspecified COPD type (HCC) - Primary | + + documented in this encounter"
--- OUTSIDE RECORDS SUMMARY | ~2020-03-12 | XMS | Encounter Summary ---
Demographics + + + | Address | [address] | | | [place] [address] | + + + | Home Phone [...] Team Providers + +------+ + | Care Military Education Coordinator Name | Role | Phone | + +------+ + | Meredith Sanchez | PCP | | + +------+ + Reason for Visit + +--------+ + | Reason | Onset | Comments | | | Date | | + +--------+ + | Medication | 06/10/ | | | Adjustment | 2019 | | + +--------+ + Encounter Details +--------+ + + + + | Date | Type | Department | Care Team | Description | +--------+ + + + + | 06/10/ | Telephone | [facility] | Sejal De La Torre | Medication | | 2019 | | Clinics at S | N, DO [address] | Adjustment | | | | [facility] [address] | | | | | [place] for | [place], [place] | | | | | Health and Healing, | [address] | | | | | [address] | [phone] | | | | | [place], [place] | | | | | | [address] | | | | | | [phone] | | | +--------+ + + + [...] Telephone Encounter - Qasim Jensen MA - 06/10/2019 6:28 PM PST Result Follow-up CSA level: Lab Results Component Value Date FK506 6.3 06/10/2019 Nona's dose will remain the same per Sejal De La Torre DO. Nona and/or her caregiver have been contacted and were able to provide verbal read back o f these instructions. Spoke with Nona. Qasim Jensen CMA. elephone Encounter - Qasim Jensen MA - 06/10/2019 4:43 PM PSTFormatting of this note might be different f rom the original. Result Follow-up CSA level: Lab Results Component Value Date FK506 6.06/10/2019 Nona's dose will remain the same per Sejal De La Torre DO. A second attempt was made to contact Nona at all phone numbers on file. elephone Encounter - Qasim Jensen MA - 06/10/2019 1:18 PM PSTFormatting of this note might be different f rom the original. Result Follow-up CSA level: Lab Results Component Value Date FK506 6.3 06/10/2019 Nona's dose will remain the same per Sejal De La Torre DO. A message was left with Nona to return this phone call by 6pm today. elephone Encounter - Avelina Busby RN - 06/10/2019 10:52 AM PSTInitial Assessment Nona Hopper's front desk person for today is patient, Nona Hopper, and her conta ct phone number for today 06/10 is: [phone]. Nona has been advised of when to [...] Nona took her last dose at 2100 on 06/09/19. documented in this en counter Plan of Treatment Not on filedocumented as of this encounter Visit Diagnoses Not on filedocumented in this encounter"
--- OUTSIDE RECORDS SUMMARY | ~2020-03-12 | XMS | Encounter Summary ---
Demographics + + + | Address | [address] | | | [place] [address] | + + + | Home Phone [...] Team Providers + +------+ + | Care Restaurant Worker Name | Role | Phone | [...] 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 | Sejal [place], | [facility] [address] | | | | | (myelodyspla | DO [address] | | | | | stic | Jon Valverde | [facility] | | | | | syndrome) | [address] | Health and | | | | | (HCC) | [place], [place] | Healing, | | | | | Procedures | [address] | [address] | | | | | [place] | Phone: | [place], [place] | | | | | OFFICE/OUTPT | [phone] | [address] | | | | | | Fax: | Phone: | | | | | VISIT,EST,LE | [phone] | [phone] | | | | | VL IV DE | | Fax: | | | | | EST PATIENT | | [phone] | | | | | LEVEL V | | | +--------+--------+ + + + + Encounter Details +--------+ + + + + | Date | Type | Department | Care Team | Description | +--------+ + + + + | 06/19/ | Hospital | [facility] | | | | 2019 | Encounter | [facility] at [facility] | | | | | | [facility] [address] | | | | | | [address] [facility] | | | | | | [facility] He[facility], | | | | | | [address] | | | | | | [place], [place] | | | | | | [address] | | | | | | [phone] | | | +--------+ + + + [...] + + + | Blood Pressure | 117/74 | 06/19/2019 1:37 PM | | | | | PST | | + + + + + | Pulse | 91 | 06/19/2019 1:37 PM | | | | | PST | | + + + + + | Temperature | 36.8 C (98.2 F) | 06/19/2019 1:37 PM | | | | | PST | | + + + + + | Respiratory Rate | 12 | 06/19/2019 1:37 PM | | | | | PST | | + + + + + | Oxygen Saturation | 96% | 06/19/2019 1:37 PM | | | | | PST | | + + + + + | Inhaled Oxygen | - | - | | | Concentration | | | | + + + + + | Weight | 58.5 kg (129 lb) | 06/19/2019 1:37 PM | | | | | PST | | + + + + + | Height | - | - | | + + + + + | Body Mass Index | 23.12 | 04/15/2019 1:50 PM | | | [...] as of this encounter Progress Notes Aniya Hayden, CARRIE - 06/19/2019 1:20 PM PSTFormatting of this note might be different fro m the original. Assessment Patient arrives to clinic walking independently. Patient states she is feeling well today. 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 Patient has has no new complaints. Fever/Chills/Infection: No SOB / Cough: No Fatigue/Dizziness/Lightheaded: Yes, +fatigue Signs/Symptoms Bleeding: No Neuropathy: No Mucositis: No Nausea/Vomiting: No Appetite: Decreased. Diarrhea/Constipation: Yes - How often? Diarrhea x3 yesterday (taking imodium which pt stat es is helping slow down frequency of BMs) PO Fluid Intake: < 2L. Pt given 1 L NS today in clinic. Urinary Issues: No Rash/Skin/Edema: No Pain: No Lab Groshong accessed per protocol. Good blood return noted. Appropriate waste discarded. Meghna portillo drawn and sent. Groshong pulse flushed with 20 mL NS. Immunosuppressant Patient reports taking their dose of Tacrolimus today, therefore no level was drawn. Dressing Change Groshong dressing change due 06/23 Education For education provided, see education tab. Supportive Care 1 L NS given for PO fluid intake < 2L Magnesium Labs: Lab Results Component Value Date MG 1.2 06/19/2019 Magnesium Sulfate 8 gm infused over 4 hours per supportive care orders for a magnesium leve l above. For infusion details, see MAR. Transfusion/Infusion n/a Discharge Prior to D/C, all questions and concerns addressed. Pt reminded to call the clinic for: ? Any temp > 100.4 ? Nausea/vomiting unresponsive to antiemetics ? Significant diarrhea despite Imodium ? Inability to drink at least 2 liters of fluid daily ? Bleeding that does not stop with pressure applied Pt discharged from clinic. Left clinic Ambulatory accompanied by sorting and folding supervisor. Next Appointme nt in [facility] TRE[facility]MENT [facility] is on 06/21/19 at 9:20 am with Infusion Clinic. Aniya Hayden RN Elham Campos RN - 1:20 PM [id number] docody in this encoun ter Plan of Treatment Not on filedocumented as of this encounter Procedures + +--------+ + + + | Procedure Name | Priori | Date/Time | Associated Diagnosis | Comments | | | ty | | | | + +--------+ + + + | [facility] - MAGNESIUM, | Routin | 06/19/2019 | S/P cord blood | Results for this | | PLASMA | e | 1:34 PM | transplantation MDS | procedure are in the | | | | PST | (myelodysplastic | results section. | | | | | syndrome) ([facility]) | | + +--------+ + + + | [facility] - PHOSPHORUS, | Routin | 06/19/2019 | S/P cord blood | Results for this | | PLASMA | e | 1:34 PM | transplantation MDS | procedure are in the | | | | PST | (myelodysplastic | results section. | | | | | syndrome) ([facility]) | | + +--------+ + + + | [facility] - LDH TOTAL, | Routin | 06/19/2019 | S/P cord blood | Results for this | | PLASMA | e | 1:34 PM | transplantation MDS | procedure are in the | | | | PST | (myelodysplastic | results section. | | | | | syndrome) ([facility]) | | + +--------+ + + + | CBC AND AUTO DIFF | Routin | 06/19/2019 | S/P cord blood | Results for this | | | e | 1:34 PM | transplantation MDS | procedure are in the | | | | PST | (myelodysplastic | results section. | | | | | syndrome) ([facility]) | | + +--------+ + + + | [facility] - COMPLETE | Routin | 06/19/2019 | S/P cord blood | Results for this | | METABOLIC SET | e | 1:34 PM | transplantation MDS | procedure are in the | | | | PST | (myelodysplastic | results section. | | | | | syndrome) ([facility]) | | + +--------+ + + + | [facility] CBC W | Routin | 06/19/2019 | S/P cord blood | Results for this | | DIFFERENTIAL | e | 1:34 PM | transplantation MDS | procedure are in the | | | | PST | (myelodysplastic | results section. | | | | | syndrome) ([facility]) | | + +--------+ + + + documented in this encounter Results CBC AND AUTO DIFF (06/19/2019 1:34 PM PST) + + + + + + | Component | Value | Ref Range | Performed | Pathologist | | | | | At | Signature | + + + + + + | WHITE CELL | 3.83 | 3.50 - 10.80 | [facility] | [...] + + + + | HEMOGLOBIN | 10.2 (L) | 12.0 - 16.0 | [facility] | | | | | g/dL | LABORATORY | | | | | | SERVICES, | | | | | | [facility] + | | | | | | [facility]AL[facility] | | + + + + + + | HEMATOCRIT | 31.6 (L) | 36.0 - 46.0 % | [facility] | | | | | | LABORATORY | | | | | | SERVICES, | | | | | | [facility] | [facility] + | | | | | | [facility]ALING | | + + + + + + | MCV | 88.8 | 80.0 - 100.0 fL | [facility] | | | | | | LABORATORY | | | | | | SERVICES, | | | | | | [facility] | [facility] + | | | | | | [facility]ALING | | + + + + + + | MCHC | 32.3 | 32.0 - 36.0 | [facility] | [...] + + + + | PLATELET | 104 (L) | 150 - 400 K/cu | [...] + + + + | NEUTROPHIL | 50.3 | 50.0 - 70.0 % | [facility] [...] + + + | MONOCYTE % | 18.8 (H) | 3.5 - 9.0 % | [...] + + + + | NEUTROPHIL | 1.93 | 1.80 - 7.70 | [facility] | | | # | | K/cu mm | LABORATORY | | | | | | SERVICES, | | | | | | [facility] | | [facility] + | | | | | | [facility]ALING | | + + + + + + | NEUTROPHIL | 1.93Comment: Preliminary | 1.80 - 7.70 | [facility] [...] + + + + | LYMPHOCYTE | 0.77 (L) | 1.00 - 4.80 | [facility] [...] + + + | EOS # | 0.34 | 0.00 - 0.50 | [facility] | [...] [facility] | [address] | [place] [address] | | | SERVICES, [facility] | | | | | [facility] + HEALING | | | | + + + + + [facility] - COMPLETE METABOLIC SET (06/19/2019 1:34 PM PST) + +---------+ + + + | Component | Value | Ref Range | Performed | Pathologist | | | | | At | Signature | + +---------+ + + + | GLUCOSE, | 101 (H) | 70 - 99 mg/dL | [...] +---------+ + + + | CREATININE | 0.93 | 0.60 - 1.10 | [facility] | [...] | | | LABORATORY | | | TUNISIAN | | | SERVICES, | | | [...] +---------+ + + + | BILIRUBIN | 1.6 (H) | 0.3 - 1.2 mg/dL | [...] +---------+ + + + | ANION | 13 [...] +---------+ + + + | BUN/CREATIN | 17 | 8 - 25 | [facility] | [...] MDRD equation recommended by the National | [facility] | | Kidney Disease Education Program. Estimated [...] | + + + + + | [facility] | [address] | [place] [address] | | | SERVICES, [facility] | | | | | HE[facility] + HEALING | | | | + + + + + [facility] - LDH TOTAL, PLASMA (06/19/2019 1:34 PM PST) + +---------+ + + + | Component | Value | Ref Range | Performed | Pathologist | | | | | At | Signature | + +---------+ + + + | LD TOTAL, | 160 | <=250 U/L | [facility] | | [...] SERVICES, | | | | | | [facility] | | | | | | [...] [facility] | [address] | [place] [address] | | | [facility] | | | | | HEALTH + HEALING | | | | + + + + + [facility] - MAGNESIUM, PLASMA (06/19/2019 1:34 PM PST) + +---------+ + + + | Component | Value | Ref Range | Performed | Pathologist | | | | | At | Signature | + +---------+ + + + | MAGNESIUM,P | 1.2 (L) | 1.6 - 2.6 mg/dL | [facility] | | | [facility] | | | LABORATORY | | | | | | [facility], | | | | | | [facility] | | | | | | [...] [facility] | [address] | [place] [address] | | | [facility], [facility] | | | | | HEALTH + HEALING | | | | + + + + + [facility] - PHOSPHORUS, PLASMA (06/19/2019 1:34 PM PST) + +-------+ + + + [...] [facility] | [address] | [place] [address] | | | SERVICES, [facility] | [...] in water IV | New Bag | 06/19/20 | 2 g | | | | (RTU) 2 g 2 g, intravenous, | | 19 1:46 | | | | | ONCE, 1 dose, 06/19/19 at | | PM PST | | | | | 1330 | | | | | | + +---------+ +------+------+------+ +---+---+ | | | +---+---+ + +---------+ +-----+---+---+ | magnesium sulfate in water IV | New Bag | 06/19/20 | 2 g | | | | (RTU) 2 g 2 g, intravenous, | | 19 4:25 | | | | | ONCE, 1 dose, 06/19/19 at | | PM PST | | | | | 1630 | | | | | | + +---------+ +-----+---+---+ +---+---+ | | | +---+---+ + +---------+ +-----+---+---+ | magnesium sulfate in water IV | New Bag | 06/19/20 | 4 g | | | | (RTU) 4 g 4 g, intravenous, | | 19 2:31 | | | | | ONCE, 1 dose, 06/19/19 at | | PM PST | | | | | 1430 | | | | | | + +---------+ +-----+---+---+ +---+---+ | | | +---+---+ + +---------+ + +---+---+ | sodium chloride (NS) 0.9 % | New Bag | 06/19/20 | 1,000 mL | | | | bolus 1,000 mL 1,000 mL, | | 19 2:32 | | | | | intravenous, NEEDED, Starting | | PM PST | | | | | 06/19/19 at 1351, Until Sun | | | | | | | 06/19/19 at 2338, decreased po | | | | | | | intake, dizziness | | | | | | + +---------+ + +---+---+ +---+---+ | | | +---+---+ documented in this encounter"
--- OUTSIDE RECORDS SUMMARY | ~2020-03-12 | XMS | Encounter Summary ---
Demographics + + + | Address | [address] | | | [place] [address] | + + + | Home Phone [...] Team Providers + +------+ + | Care Department Of Natural [employer] Officer Name | Role | Phone | + +------+ + | Meredith Sanchez | PCP | | + +------+ + Encounter Details +--------+ + + + + | Date | Type | Department | Care Team | Description | +--------+ + + + + | 11/30/ | Sandwich Machine Operator | [facility] | Sejal [place] La Torre | | | 2019 | | Clinics at S | N, DO [address] | | | | | [facility] [address] | | | | | [facility] for | [place], [place] | | | | | Health and Healing, | [address] | | | | | [address] | [phone] | | | | | [place], [place] | | | | | | [address] | | | | | | [phone] | | | +--------+ + + + [...]
--- OUTSIDE RECORDS SUMMARY | ~2020-03-12 | XMS | Encounter Summary ---
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 | [facility] | Sejal De La Torre | S/P cord blood | | 2019 | | Clinics at S | N, DO [address] | transplantation | | | | [facility] [address] | (Primary Dx); 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[facility], [place]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[facility], | [address]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) | | | | Building [address] | [phone] | | | | | [place], [place] | | | | | | [address] | | | | | | [phone] | | | +--------+ + + + [...] + +------+--------+ + + | [facility] - CBC W | Lab | Routin | S/P cord blood | 2-3 times per week | | DIFFERENTIAL | | e | transplantation MDS | for 99 Occurrences | | | | | (myelodysplastic | starting 06/13/2019 | | | | | syndrome) ([facility]) | until 07/14/2020, 17 | | | | | | completed | + +------+--------+ + + | [facility] - COMPLETE | Lab | Routin | S/P cord blood | 2-3 times per week | | METABOLIC SET | | e | transplantation MDS | for 99 Occurrences | | | | | (myelodysplastic | starting 06/13/2019 | | | | | syndrome) ([facility]) | until 07/14/2020, 18 | | | | | | completed | + +------+--------+ + + | [facility] - LDH TOTAL, | Lab | Routin | S/P cord blood | 2-3 times per week | | PLASMA | | e | transplantation MDS | for 99 Occurrences | | | | | (myelodysplastic | starting 06/13/2019 | | | | | syndrome) ([facility]) | until 07/14/2020, 18 | | | | | | completed | + +------+--------+ + + | [facility] - MAGNESIUM, | Lab | Routin | S/P cord blood | 2-3 times per week | | PLASMA | | e | transplantation MDS | for 99 Occurrences | | | | | (myelodysplastic | starting 06/13/2019 | | | | | syndrome) ([facility]) | until 07/14/2020, 18 | | | | | | completed | + +------+--------+ + + | [facility] - PHOSPHORUS, | Lab | Routin | S/P cord blood | 2-3 times per week | | PLASMA | | e | transplantation MDS | for 99 Occurrences | | | | | (myelodysplastic | starting 06/13/2019 | | | | | syndrome) ([facility]) | until 07/14/2020, 18 | | | | | | completed | + +------+--------+ + + | CMV PCR | Lab | Routin | S/P cord blood | 1 time per week for | | QUANTITATION, PLASMA | | e | transplantation MDS | 60 Occurrences | | | | | (myelodysplastic | starting 06/13/2019 | | | | | syndrome) ([facility]) | until 07/14/2020, 12 | | | | | | completed | + +------+--------+ + + | TACROLIMUS, WHOLE | Lab | Routin | S/P cord blood | 2-3 times per week | | BLOOD | | e | transplantation MDS | for 99 Occurrences | | | | | (myelodysplastic | starting 06/13/2019 | | | | | syndrome) ([facility]) | until 07/14/2020, 15 | | | | | | completed | + +------+--------+ + + documented as of this encounter Results TACROLIMUS, WHOLE BLOOD (02/23/2020 10:23 AM PDT) [...] + + + | Test performed at [facility]. Test performed by immunoassay | [facility] | | using Hyatt Chemistry Professor i2000. . Samples for analysis of | [...] + + + + + | [facility] | [address] | [place] [address] | | | SERVICES, SPECIAL | PARK [...] determined by the [facility] | | | Molecular Diagnostic Center. It [...] of 1988. The [facility] Molecular | | | Diagnostic Center is a fully licensed and/or accredited clinical | | | laboratory under CLIA, CAP, and the [facility]. | | + + + + + + + + | Performing | Address | City/State/Zipcode | Phone Number | | Organization | | | | + + + + + | [facility] | [address] | [place] [address] | | | DIAGNOSTIC | [address] [...] LABORATORY | [address] | [place] [address] | | | [facility] | | | | | HEALTH + HEALING | | | | + + + + + [facility] - MAGNESIUM, PLASMA (02/23/2020 10:23 AM PDT) + +-------+ + + + | Component | Value | Ref Range | Performed | Pathologist | | | | | At | Signature | + +-------+ + + + | MAGNESIUM,P | 1.9 | 1.6 - 2.6 mg/dL | [facility] | | | LASMA | | | LABORATORY | | | | | | [facility], | | | | | | CENTER [...] | + + + + + | [facility] | [address] | [place] [address] | | | SERVICES, [facility] | | | | | HEALTH [...] LABORATORY | [address] | [place] [address] | | | SERVICES, [facility] | | | | | HEALTH + HEALING | | | | + + + + + [facility] - COMPLETE METABOLIC SET (02/23/2020 10:23 AM [...] | | | LABORATORY | | | [facility] | | | SERVICES, | | | [...] MDRD equation recommended by the National | [facility] | | Kidney Disease Education Program. Estimated [...] + + | Performing | Address | City/State/[facility]ode | Phone Number | | Organization | | | | + + + + + | [facility] | [address] | [place] [address] | | | SERVICES, [facility] | | | | | HEALTH + HEALING | | | | + + + + + TACROLIMUS, WHOLE BLOOD (02/13/2020 10:09 AM PDT) + +-------+ + + + | Component | Value | Ref Range | Performed | Pathologist | | | | | At | Signature | + +-------+ + + + | TACROLIMUS | 10.0 | 5.0 - 15.0 | [facility] | [...] | Test performed by immunoassay using Hyatt Chemistry Professor [email or web address]. . | [facility] | | Samples [...] + + + + + | [facility] | [address] | [place] [address] | | | SERVICES, SPECIAL | [address] | | | | IMM + COAG | | | | + + + + + CMV PCR QUANTITATION, PLASMA (02/13/2020 10:09 AM PDT) + + + + + [...] 2 fold may not reflect true | [facility] | | biological changes and must [...] determined by the [facility] | | | Molecular Diagnostic Center. It [...] of 1988. The [facility] Molecular | | | Diagnostic Center is a fully licensed and/or accredited clinical | | | laboratory under CLIA, CAP, and the [facility]. | | + + + + + + + + | Performing | Address | City/State/Zipcode | Phone Number | | Organization | | | | + + + + + | [facility] | [address] | [place] [address] | | | DIAGNOSTIC | [address] | | | | LABORATORIES | | | | + + + + + [facility] - PHOSPHORUS, PLASMA (02/13/2020 10:09 AM PDT) + +---------+ + + + | Component | Value | Ref Range | Performed | Pathologist | | | | | At | Signature | + +---------+ + + + | PHOSPHORUS, | 5.1 (H) | 2.4 - 4.7 mg/dL | [facility] [...] [facility] | [address] | [place] [address] | | | SERVICES, [facility]ENTER FOR | | | | | HEALTH + HEALING | | | | + + + + + [facility] - MAGNESIUM, PLASMA (02/13/2020 10:09 AM PDT) + +-------+ + + + | Component | Value | Ref Range | Performed | Pathologist | | | | | At | Signature | + +-------+ + + + | MAGNESIUM,P | 2.5 | 1.6 - 2.6 mg/dL | [facility] | | | LASMA | | | LABORATORY | | | | | | SERVICES, | | | | | | [facility] | | | | | | [...] LABORATORY | [address] | [place] [address] | | | SERVICES, [facility] | | | | | HEALTH + HEALING | | | | + + + + + [facility] - LDH TOTAL, PLASMA (02/13/2020 10:09 AM PDT) + +---------+ + + + | Component | Value | Ref Range | Performed | Pathologist | | | | | At | Signature | + +---------+ + + + | LD TOTAL, | 242 | <=250 U/L | [facility] | | | PLASMA | | | LABORATORY | | | | | | [facility], | | | | | | CENTER [...] [facility] | [address] | [place] [address] | | | SERVICES, CENTER FOR | | | | | HEALTH + HEALING | | | | + + + + + [facility] - COMPLETE METABOLIC SET (02/13/2020 10:09 AM PDT) + + + + + [...] + + + | BUN, PLASMA | 39 (H) | 6 - 20 mg/dL | [facility] | | | (LAB) | | | LABORATORY | | | | | | SERVICES, | | | | | | [facility] FOR | | | | | | HEALTH + | | | | | | HEALING | | + + + + + + | CREATININE | 1.54 (H) | 0.60 - 1.10 | [facility] | | | PLASMA | | mg/dL | LABORATORY | | | (LAB) | | | SERVICES, | | | | | | [facility] | | | | | | HEALTH + | | | | | | HEALING | | + + + + + + | EGFR | 42 (L) | >60 mL/min | [facility] | | | - | | | LABORATORY | | | [facility] | | | SERVICES, | | | | | | [facility] | | | | | | HEALTH + | | | | | | HEALING | | + + + + + + | EGFR NON | 35 (L) | >60 mL/min | [facility] | | | -RENAE | | | LABORATORY | | | [facility] | | | SERVICES, | | | | | | [facility] FOR | | | | | | HEALTH + | | | | | | HEALING | | + + + + + + | SODIUM, | 136 | 136 - 145 | [facility] | | | PLASMA | | mmol/L | LABORATORY | | | (LAB) | | | SERVICES, | | | | | | [facility] | | | | | | HEALTH + | | | | | | HEALING | | + + + + + + | POTASSIUM, | 5.1 (H) | 3.4 - 5.0 | [facility] | | | PLASMA | | mmol/L | LABORATORY | | | (LAB) | | | SERVICES, | | | | | | [facility] FOR | | | | | | HEALTH + | | | | | | HEALING | | + + + + + + | CHLORIDE, | 102 [...] + + + + | TOTAL | 6.8 | 6.4 - 8.2 g/dL | [facility] | | | PROTEIN, | | | LABORATORY | | | PLASMA | | | SERVICES, | | | (LAB) | | | [facility] FOR | | | | | | HEALTH + | | | | | | HEALING | | + + + + + + | ALBUMIN, | 3.8 [...] + + + + | AST(SGOT) | 20 | <=41 U/L | [facility] | | | | | | LABORATORY | | | | | | SERVICES, | | | | | | [facility]ENTER FOR | | | | | | HEALTH + | | | | | | HEALING | | + + + + + + | ALT (SGPT) | 38 | <=60 U/L | [facility] | | [...] + + + + | ANION | 9 [...] + + + + | BUN/CREATIN | 25 | 8 - 25 | [facility] | [...] + + + + | ALBUMIN/BURTON | 1.3 | 0.7 - 2.8 | [facility] | [...] MDRD equation recommended by the National | [facility] | | Kidney Disease Education Program. Estimated [...] LABORATORY | [address] | [place] [address] | | | SERVICES, [facility] | | | | | HEALTH + HEALING | | | | + + + + + TACROLIMUS, WHOLE BLOOD (02/02/2020 9:38 AM PDT) + +-------+ + + + | Component | Value | Ref Range | Performed | Pathologist | | | | | At | Signature | + +-------+ + + + | TACROLIMUS | 8.8 | 5.0 - 15.0 | [facility] | [...] | Test performed by immunoassay using Hyatt Chemistry Professor i2000. . | [facility] | | Samples [...] | + + + + + | [facility] | [address] | [place] [address] | | | SERVICES, SPECIAL | [address] | | | | IMM + COAG | | | | + + + + + CMV PCR QUANTITATION, PLASMA (02/02/2020 9:38 AM PDT) + + [...] determined by the [facility] | | | Molecular Diagnostic Center. It [...] of 1988. The [facility] Molecular | | | Diagnostic Center is a fully licensed and/or accredited clinical | | | laboratory under CLIA, [facility], and the [facility]. | | + + + + + + + + | Performing | Address | City/State/[facility] [facility] Cent[facility]ode | Phone Number | | Organization | | | | + + + + + | [facility] | [address] | [place] [address] | | | DIAGNOSTIC | [address] | | | | LABORATORIES | | | | + + + + + [facility] - PHOSPHORUS, PLASMA (02/02/2020 9:38 AM PDT) + +-------+ + [...] LABORATORY | [address] | [place] [address] | | | [facility] | | | | | HEALTH + HEALING | | | | + + + + + [facility] - MAGNESIUM, PLASMA (02/02/2020 9:38 AM PDT) + +-------+ + + + | Component | Value | Ref Range | Performed | Pathologist | | | | | At | Signature | + +-------+ + + + | MAGNESIUM,P | 2.2 | 1.6 - 2.6 mg/dL | [facility] [...] | + + + + + | [facility] | [address] | [place] [address] | | | SERVICES, [facility] | | | | | HEALTH + HEALING | | | | + + + + + [facility] - LDH TOTAL, PLASMA (02/02/2020 9:38 AM PDT) + +---------+ + + + | Component | Value | Ref Range | Performed | Pathologist | | | | | At | Signature | + +---------+ + + + | LD TOTAL, | 247 | <=250 U/L | [facility] | | [...] LABORATORY | [address] | [place] [address] | | | SERVICES, [facility] | | | | | HEALTH + HEALING | | | | + + + + + [facility] - COMPLETE METABOLIC SET (02/02/2020 9:38 AM PDT) + + + + + + | Component | Value | Ref Range | Performed | Pathologist | | | | | At | Signature | + + + + + + | GLUCOSE, | 138 (H) | 70 - 99 mg/dL | [facility] | | | PLASMA | | | LABORATORY | | | (LAB) | | | SERVICES, | | | | | | CENTER FOR | | | | | | HEALTH + | | | | | | HEALING | | + + + + + + | BUN, PLASMA | 30 (H) | 6 - 20 mg/dL | [facility] | | | (LAB) | | | LABORATORY | | | | | | SERVICES, | | | | | | [facility] FOR | | | | | | HEALTH + | | | | | | HEALING | | + + + + + + | CREATININE | 1.20 (H) | 0.60 - 1.10 | [facility] | | | PLASMA | | mg/dL | LABORATORY | | | (LAB) | | | SERVICES, | | | | | | C[facility] FOR | | | | | | HEALTH + | | | | | | HEALING | | + + + + + + | EGFR | 56 (L) | >60 mL/min | [facility] | | | - | | | LABORATORY | | | [facility] | | | SERVICES, | | | | | | [facility] FOR | | | | | | HEALTH + | | | | | | HEALING | | + + + + + + | EGFR NON | 47 (L) | >60 mL/min | [facility] | | | -RENAE | | | LABORATORY | | | [facility] | | | SERVICES, | | | | | | [facility] FOR | | | | | | HEALTH + | | | | | | HEALING | | + + + + + + | SODIUM, | 134 [...] + + + + | POTASSIUM, | 4.5 | 3.4 - 5.0 | [facility] | | | PLASMA | | mmol/L | LABORATORY | | | (LAB) | | | SERVICES, | | | | | | CENTER FOR | | | | | | HEALTH + | | | | | | HEALING | | + + + + + + | CHLORIDE, | 101 | 97 - 108 mmol/L | [facility] [...] + + + + | CALCIUM(ALB | 8.9 | 8.6 - 10.2 | [facility] | [...] + + + | ALK PHOS | 83 | 42 - 98 U/L | [facility] | | | | | | LABORATORY | | | | | | SERVICES, | | | | | | CENTER FOR | | | | | | HEALTH + | | | | | | HEALING | | + + + + + + | AST(SGOT) | 20 [...] + + + + | ANION | 7 | 4 - 11 mmol/L [...] + + + + | BUN/CREATIN | 25 | 8 - 25 | [facility] | | | INE RATIO | | | LABORATORY | | | | | | SERVICES, | | | | | | CENTER FOR | | | | | | HEALTH + | | | | | | HEALING | | + + + + + + | GLOBULIN | 2.9 | 2.3 - 3.5 gm/dL | [facility] | | | LVL | | | LABORATORY | | | | | | SERVICES, | | | | | | C[facility] FOR | | | | | | HEALTH + | | | | | | HEALING | | + + + + + + | ALBUMIN/BURTON | 1.3 | 0.7 - 2.8 | [facility] | [...] MDRD equation recommended by the National | [facility] | | Kidney Disease Education Program. Estimated [...] | + + + + + | [facility] | [address] | [place] [address] | | | SERVICES, [facility] | | | | | HEALTH + [...] | Test performed by immunoassay using Hyatt Chemistry Professor i2000. . | [facility] | | Samples [...] + + + + + | [facility] | [address] | [place] [address] | | | SERVICES, SPECIAL | JASON [...] 2 fold may not reflect true | [facility] | | biological changes and must [...] determined by the [facility] | | | Molecular Diagnostic Center. It [...] of 1988. The [facility] Molecular | | | Diagnostic Center is a fully licensed and/or accredited clinical | | | laboratory under CLIA, CAP, and the [facility]. | | + + + + + + + + | Performing | Address | City/State/Zipcode | Phone Number | | Organization | | | | + + + + + | [facility] | [address] | [place] [address] | | | DIAGNOSTIC | [address] [...] + + | [facility] | [address] | [place] [address] | | | SERVICES, CENTER FOR | [...] SERVICES, | | | | | | [facility] | | | | | | [...] LABORATORY | [address] | [place] [address] | | | [facility], [facility] | | | | | HEALTH + [...] [facility] | [address] | [place] [address] | | | SERVICES, CENTER FOR | [...] | | | LABORATORY | | | [facility] | | | SERVICES, | | | [...] MDRD equation recommended by the National | [facility] | | Kidney Disease Education Program. Estimated [...] LABORATORY | [address] | [place] [address] | | | [facility] | | | | | [...] | Test performed by immunoassay using Hyatt Chemistry Professor i2000. . | [facility] | | Samples [...] + + + + + | [facility] | [address] | [place] [address] | | | SERVICES, SPECIAL | [address] [...] determined by the [facility] | | | Molecular Diagnostic Center. It has not been cleared or approved by | | | the Food and Drug Administration. FDA approval is not required for | | | clinical use of this test, and therefore validation was done as | | | required under the requirements of the Clinical Laboratory Improvement | | | Act of 1988. The [facility] Molecular | | | Diagnostic Center is a fully licensed and/or accredited clinical | | | laboratory under CLIA, CAP, and the [facility]. | | + + + + + + + + | Performing | Address | City/State/[facility] [facility]ode | Phone Number | | Organization | | | | + + + + + | [facility] | [address] | [place] [address] | | | DIAGNOSTIC | [address] [...] LABORATORY | [address] | [place] [address] | | | [facility], [facility] | | | | | HEALTH + [...] LABORATORY | | | | | | [facility], | | | | | | [facility] | | | | | | [...] | + + + + + | [facility] | [address] | [place] [address] | | | SERVICES, [facility] | | | | | HEALTH [...] LABORATORY | [address] | [place] [address] | | | SERVICES, [facility] | | | | | HEALTH [...] | | | LABORATORY | | | [facility] | | | SERVICES, | | | [...] + + | Performing | Address | City/State/[facility] Cent[facility]ode | Phone Number | | Organization | | | | + + + + + | [facility] | [address] | [place] [address] | | | SERVICES, [facility] | | | | | HEALTH + [...] | Test performed by immunoassay using Hyatt Chemistry Professor i2000. . | [facility] | | Samples [...] | + + + + + | [facility] | [address] | [place] [address] | | | SERVICES, SPECIAL | PARK [...] | + + + + + | [facility] | [address] | [place] [address] | | | [facility] | | | | | HEALTH + HEALING | | | | + + + + + [facility] - MAGNESIUM, PLASMA (08/04/2019 1:18 PM PST) [...] + + | [facility] | [address] | [place] [address] | | | SERVICES, [facility] | | | | | HEALTH [...] LABORATORY | [address] | [place] [address] | | | SERVICES, [facility] | | | | | HEALTH [...] | | | LABORATORY | | | [facility] | | | SERVICES, | | | [...] MDRD equation recommended by the National | [facility] | | Kidney Disease Education Program. Estimated [...] | + + + + + | [facility] | [address] | [place] [address] | | | SERVICES, [facility] | | | | | HEALTH + HEALING | | | | + + + + + CMV PCR QUANTITATION, PLASMA (08/01/2019 1:59 PM PST) + + [...] 2 fold may not reflect true | [facility] | | biological changes and must [...] determined by the [facility] | | | Molecular Diagnostic Center. It [...] of 1988. The [facility] Molecular | | | Diagnostic Center is a fully licensed and/or accredited clinical | | | laboratory under CLIA, CAP, and the [facility]. | | + + + + + + + + | Performing | Address | City/State/Zipcode | Phone Number | | Organization | | | | + + + + + | [facility] | [address] | [place] [address] | | | DIAGNOSTIC | [address] | | | | LABORATORIES | | | | + + + + + [facility] - PHOSPHORUS, PLASMA (08/01/2019 1:59 PM PST) + +-------+ + + + [...] | + + + + + | [facility] | [address] | [place] [address] | | | SERVICES, [facility] | | | | | HEALTH + HEALING | | | | + + + + + [facility] - MAGNESIUM, PLASMA (08/01/2019 1:59 PM PST) + +---------+ + + + [...] SERVICES, | | | | | | [facility] | | | | | | [...] LABORATORY | [address] | [place] [address] | | | SERVICES, [facility] | | | | | HEALTH + HEALING | | | | + + + + + [facility] - LDH TOTAL, PLASMA (08/01/2019 1:59 PM PST) + +---------+ + + + | Component | Value | Ref Range | Performed | Pathologist | | | | | At | Signature | + +---------+ + + + | LD TOTAL, | 202 | <=250 U/L | [facility] | | [...] | + + + + + | [facility] | [address] | [place] [address] | | | SERVICES, [facility] | | | | | HEALTH + HEALING | | | | + + + + + [facility] - COMPLETE METABOLIC SET (08/01/2019 1:59 PM PST) + +---------+ + + + | Component | Value | Ref Range | Performed | Pathologist | | | | | At | Signature | + +---------+ + + + | GLUCOSE, | 119 (H) | 70 - 99 mg/dL | [facility] | | | PLASMA | | | LABORATORY | | | (LAB) | | | SERVICES, | | | | | | CENTER FOR | | | | | | HEALTH + | | | | | | HEALING | | + +---------+ + + + | BUN, PLASMA | 24 (H) | 6 - 20 mg/dL | [facility] | | | (LAB) | | | LABORATORY | | | | | | SERVICES, | | | | | | [facility] FOR | | | | | | HEALTH + | | | | | | HEALING | | + +---------+ + + + | CREATININE | 0.79 | 0.60 - 1.10 | [facility] | [...] | | | LABORATORY | | | [facility] | | | SERVICES, | | | [...] +---------+ + + + | CHLORIDE, | 101 | 97 - 108 mmol/L | [facility] [...] +---------+ + + + | ALBUMIN, | 3.2 [...] +---------+ + + + | BUN/CREATIN | 30 (H) | 8 - 25 | [facility] [...] MDRD equation recommended by the National | [facility] | | Kidney Disease Education Program. Estimated [...] LABORATORY | [address] | [place] [address] | | | [facility] | | | | | [...] | Test performed by immunoassay using Hyatt Chemistry Professor i2000. . | [facility] | | Samples [...] | + + + + + | [facility] | [address] | [place] [address] | | | SERVICES, SPECIAL | JASON [...] [facility] | [address] | [place] [address] | | | SERVICES, [facility]ENTER FOR | | | | | HEALTH + HEALING | | | | + + + + + H - MAGNESIUM, PLASMA (07/28/2019 8:07 AM PST) [...] LABORATORY | [address] | [place] [address] | | | [facility], [facility] | | | | | HEALTH + [...] [facility] | [address] | [place] [address] | | | SERVICES, [facility] | | | | | HEALTH + HEALING | | | | + + + + + [facility] - COMPLETE METABOLIC SET (07/28/2019 8:07 AM [...] | | | LABORATORY | | | [facility] | | | SERVICES, | | | [...] MDRD equation recommended by the National | [facility] | | Kidney Disease Education Program. Estimated [...] LABORATORY | [address] | [place] [address] | | | [facility] | | | | | [...] | Test performed by immunoassay using Hyatt Chemistry Professor i2000. . | [facility] | | Samples [...] | + + + + + | [facility] | [address] | [place] [address] | | | SERVICES, SPECIAL | JASON [...] [facility] | [address] | [place] [address] | | | SERVICES, CENTER FOR | [...] LABORATORY | [address] | [place] [address] | | | [facility] | | | | | HEALTH + [...] LABORATORY | | | | | | [facility], | | | | | | [facility] | | | | | [facility] + | | | | | | HEALING | | + +---------+ + + + | LD CMNT | Sl Hemo | | [facility] | | | | | | LABORATORY | | | | | | SERVICES, | | | | | | [facility] | | | | | | [...] LABORATORY | [address] | [place] [address] | | | [facility], [facility] | | | | | HE[facility] + HEALING | | | | + + + + + [facility] - COMPLETE METABOLIC SET (07/25/2019 2:57 PM [...] | | | LABORATORY | | | [facility] | | | SERVICES, | | | [...] LABORATORY | [address] | [place] [address] | | | [facility] | | | | | [...] | Test performed by immunoassay using [employer] Professor [email or web address]. . | [facility] | | Samples [...] + + + + + | [facility] | [address] | [place] [address] | | | SERVICES, SPECIAL | JASON [...] CMV DNA | Undetected | Undetected, | JEFF-CHRISTIANO | | | QUANTITATIO | | Undetected [...] determined by the [facility] | | | [facility]. It [...] of 1988. The [facility] | | | Diagnostic Center is a fully licensed and/or accredited clinical | | | laboratory under CLIA, [employer], and the [facility]. | | + + + + + + + + | Performing | Address | City/State/Zipcode | Phone Number | | Organization | | | | + + + + + | [facility] | [address] | [place] [address] | | | DIAGNOSTIC | [address] [...] LABORATORY | [address] | [place] [address] | | | [facility], [facility] | | | | | HEALTH + [...] LABORATORY | | | | | | [facility], | | | | | | [facility] | | | | | | [...] | + + + + + | [facility] | [address] | [place] [address] | | | SERVICES, [facility] | | | | | HEALTH + HEALING | | | | + + + + + [facility] - LDH TOTAL, PLASMA (07/21/2019 7:59 AM [...] LABORATORY | [address] | [place] [address] | | | [facility] | | | | | HEALTH + HEALING | | | | + + + + + CH - COMPLETE METABOLIC SET (07/21/2019 7:59 AM [...] | | | LABORATORY | | | [facility] | | | SERVICES, | | | [...] | + + + + + | [facility] | [address] | [place] [address] | | | SERVICES, [facility] | | | | | HEALTH + HEALING | | | | + + + + + TACROLIMUS, WHOLE BLOOD (07/18/2019 12:54 PM PST) + +-------+ + + + | Component | Value | Ref Range | Performed | Pathologist | | | | | At | Signature | + +-------+ + + + | TACROLIMUS | 10.1 | 5.0 - 15.0 | [facility] | [...] | Test performed by immunoassay using Hyatt Chemistry Professor [email or web address]. . | [facility] | | Samples [...] + + | Performing | Address | City/State/[facility] Cent[facility]ode | Phone Number | | Organization | | | | + + + + + | [facility] | [address] | [place] [address] | | | SPECIAL MENG | [address] | | | | IMM + COAG | | | | + + + + + [facility] - PHOSPHORUS, PLASMA (07/18/2019 12:54 PM PST) + +-------+ + + + [...] LABORATORY | [address] | [place] [address] | | | [facility] | | | | | HEALTH + HEALING | | | | + + + + + [facility] - MAGNESIUM, PLASMA (07/18/2019 12:54 PM PST) + +---------+ + + + | Component | Value | Ref Range | Performed | Pathologist | | | | | At | Signature | + +---------+ + + + | MAGNESIUM,P | 1.2 (L) | 1.6 - 2.6 mg/dL | [facility] | | | LASMA | | | LABORATORY | | | | | | [facility], | | | | | | [facility] | | | | | | [...] | + + + + + | [facility] | [address] | [place] [address] | | | SERVICES, [facility] | | | | | HEALTH + HEALING | | | | + + + + + [facility] - LDH TOTAL, PLASMA (07/18/2019 12:54 PM PST) + +---------+ + + + | Component | Value | Ref Range | Performed | Pathologist | | | | | At | Signature | + +---------+ + + + | LD TOTAL, | 217 | <=250 U/L | [facility] | | [...] LABORATORY | [address] | [place] [address] | | | [facility] | | | | | HEALTH + HEALING | | | | + + + + + [facility] - COMPLETE METABOLIC SET (07/18/2019 12:54 PM PST) + +---------+ + + + [...] + + + | BUN, PLASMA | 20 | 6 - 20 mg/dL | [facility] [...] | | | LABORATORY | | | [facility] | | | SERVICES, | | | [...] +---------+ + + + | POTASSIUM, | 3.2 [...] +---------+ + + + | CHLORIDE, | 101 | 97 - 108 mmol/L | [facility] [...] +---------+ + + + | CALCIUM, | 8.1 (L) | 8.6 - 10.2 | [facility] [...] +---------+ + + + | TOTAL | 6.0 (L) | 6.4 - 8.2 g/dL | [facility] | | | PROTEIN, | | | LABORATORY | | | PLASMA | | | SERVICES, | | | (LAB) | | | [facility]ENTER FOR | | | | | | HEALTH + | | | | | | HEALING | | + +---------+ + + + | ALBUMIN, | 3.2 [...] +---------+ + + + | BUN/CREATIN | 21 | 8 - 25 | [facility] | [...] | + + + + + | [facility] | [address] | [place] [address] | | | SERVICES, [facility] | | | | | HEALTH + [...] | Test performed by immunoassay using Hyatt Chemistry Professor [email or web address]. . | [facility] | | Samples [...] | + + + + + | [facility] | [address] | [place] [address] | | | [facility] SPECIAL | [address] | | | [...] 2 fold may not reflect true | [facility] | | biological changes and must [...] determined by the [facility] | | | Molecular Diagnostic Center. It [...] of 1988. The [facility] Molecular | | | Diagnostic Center is a fully licensed and/or accredited clinical | | | laboratory under CLIA, CAP, and the [facility]. | | + + + + + + + + | Performing | Address | City/State/Zipcode | Phone Number | | Organization | | | | + + + + + | [facility] | [address] | [place] [address] | | | DIAGNOSTIC | [address] | | | | LABORATORIES | | | | + + + + + [facility] - PHOSPHORUS, PLASMA (07/14/2019 8:04 AM PST) [...] | + + + + + | [facility] | [address] | [place] [address] | | | SERVICES, [facility] | | | | | HEALTH [...] SERVICES, | | | | | | [facility] | | | | | | [...] LABORATORY | [address] | [place] [address] | | | SERVICES, [facility] | | | | | HEALTH [...] | + + + + + | [facility] | [address] | [place] [address] | | | SERVICES, [facility] | | | | | HEALTH [...] | | | LABORATORY | | | [facility] | | | SERVICES, | | | [...] MDRD equation recommended by the National | [facility] | | Kidney Disease Education Program. Estimated [...] LABORATORY | [address] | [place] [address] | | | [facility] | | | | | [...] | Test performed by immunoassay using Hyatt Chemistry Professor [email or web address]. . | [facility] | | Samples [...] | + + + + + | [facility] | [address] | [place] [address] | | | SERVICES, SPECIAL | PARK [...] determined by the [facility] | | | Molecular Diagnostic Center. It has not been cleared or approved by | | | the Food and Drug Administration. FDA approval is not required for | | | clinical use of this test, and therefore validation was done as | | | required under the requirements of the Clinical Laboratory Improvement | | | Act of 1988. The [facility] Molecular | | | Diagnostic Center is a fully licensed and/or accredited clinical | | | laboratory under CLIA, CAP, and the [facility]. | | + + + + + + + + | Performing | Address | City/State/[facility] Centercode | Phone Number | | Organization | | | | + + + + + | [facility] | [address] | [place] [address] | | | DIAGNOSTIC | [address] [...] LABORATORY | [address] | [place] [address] | | | [facility] | | | | | [...] LABORATORY | | | | | | [facility], | | | | | | [facility] | | | | | | [...] | + + + + + | [facility] | [address] | [place] [address] | | | SERVICES, [facility] | | | | | HEALTH [...] [facility] | [address] | [place] [address] | | | [facility] | | | | | HEALTH [...] | | | LABORATORY | | | [facility] | | | SERVICES, | | | [...] | + + + + + | [facility] | [address] | [place] [address] | | | SERVICES, [facility] | | | | | HEALTH + HEALING | | | | + + + + + TACROLIMUS, WHOLE BLOOD (07/01/2019 11:51 AM PST) + + + + + + | Component | Value | Ref Range | Performed | Pathologist | | | | | At | Signature | + + + + + + | TACROLIMUS | Comment: See Scanned | | [facility] | | | ([phone]) | Report. | | REFERENCE | | | | | | LAB [...] + + + + + | [facility] | | | | + + + + + | [facility] | see below | | | + + + + + CMV PCR QUANTITATION, PLASMA (07/01/2019 11:49 AM PST) + + + + + [...] 2 fold may not reflect true | [facility] | | biological changes and must [...] determined by the [facility] | | | Molecular Diagnostic Center. It [...] of 1988. The [facility] Molecular | | | Diagnostic Center is a fully licensed and/or accredited clinical | | | laboratory under CLIA, CAP, and the [facility]. | | + + + + + + + + | Performing | Address | City/State/Zipcode | Phone Number | | Organization | | | | + + + + + | [facility] | [address] | [place] [address] | | | DIAGNOSTIC | [address] | | | | LABORATORIES | | | | + + + + + [facility] - PHOSPHORUS, PLASMA (07/01/2019 11:49 AM PST) + +-------+ + + + [...] | + + + + + | [facility] | [address] | [place] [address] | | | SERVICES, [facility] | | | | | HEALTH + HEALING | | | | + + + + + [facility] - MAGNESIUM, PLASMA (07/01/2019 11:49 AM PST) + +---------+ + + + | Component | Value | Ref Range | Performed | Pathologist | | | | | At | Signature | + +---------+ + + + | MAGNESIUM,P | 1.2 (L) | 1.6 - 2.6 mg/dL | [facility] | | | [facility] | | | [...] [facility] | [address] | [place] [address] | | | SERVICES, [facility] FOR | | | | | HEALTH + HEALING | | | | + + + + + [facility] - LDH TOTAL, PLASMA (07/01/2019 11:49 AM PST) + +---------+ + + + [...] | + + + + + | [facility] | [address] | [place] [address] | | | [facility] | | | | | HEALTH + HEALING | | | | + + + + + [facility] - COMPLETE METABOLIC SET (07/01/2019 11:49 AM PST) + +---------+ + + + | Component | Value | Ref Range | Performed | Pathologist | | | | | At | Signature | + +---------+ + + + | GLUCOSE, | 112 (H) | 70 - 99 mg/dL | [...] +---------+ + + + | CREATININE | 0.96 | 0.60 - 1.10 | [facility] | [...] | | | LABORATORY | | | [facility] | | | SERVICES, | | | [...] + + + | TOTAL CO2, | 17 (L) | 21 - 32 mmol/L | [...] + + + | ALK PHOS | 94 | 42 - 98 U/L | [facility] | | | | | | LABORATORY | | | | | | SERVICES, | | | | | | [facility] FOR | | | | | | HEALTH + | | | | | | HEALING | | + +---------+ + + + | AST(SGOT) | 8 | <=41 U/L | [facility] | | | | | | LABORATORY | | | | | | SERVICES, | | | | | | [facility] | | | | | | HEALTH + | | | | | | HEALING | | + +---------+ + + + | ALT (SGPT) | 12 | <=60 U/L | [facility] | | | | | | LABORATORY | | | | | | SERVICES, | | | | | | [facility] | | | | | | HEALTH + | | | | | | HEALING | | + +---------+ + + + | ANION GAP | 18 (H) | 4 - 11 mmol/L | [facility] | | | | | | LABORATORY | | | | | | SERVICES, | | | | | | [facility] | | | | | | HEALTH + | | | | | | HEALING | | + +---------+ + + + | ANION | 19 (H) | 4 - 11 mmol/L | [...] +---------+ + + + | GLOBULIN | 2.9 | 2.3 - 3.5 gm/dL | [facility] [...] MDRD equation recommended by the National | [facility] | | Kidney Disease Education Program. Estimated [...] | + + + + + | [facility] | [address] | [place] [address] | | | [facility] | | | | | [...] 2 fold may not reflect true | [facility] | | biological changes and must [...] determined by the [facility] | | | Molecular Diagnostic Center. It [...] of 1988. The [facility] Molecular | | | Diagnostic Center is a fully licensed and/or accredited clinical | | | laboratory under CLIA, CAP, and the [facility]. | | + + + + + + + + | Performing | Address | City/State/Zipcode | Phone Number | | Organization | | | | + + + + + | [facility] | [address] | [place] [address] | | | DIAGNOSTIC | [address] [...] [facility] | [address] | [place] [address] | | | SERVICES, CENTER FOR | [...] LABORATORY | [address] | [place] [address] | | | [facility] | | | | | HEALTH + [...] LABORATORY | | | | | | [facility], | | | | | | [facility] | | | | | | [...] LABORATORY | [address] | [place] [address] | | | SERVICES, [facility] FOR | | | | | HEALTH + HEALING | | | | + + + + + [facility] - COMPLETE METABOLIC SET (06/28/2019 3:00 PM [...] | | | LABORATORY | | | [facility] | | | SERVICES, | | | [...] MDRD equation recommended by the National | [facility] | | Kidney Disease Education Program. Estimated [...] LABORATORY | [address] | [place] [address] | | | [facility] | | | | | [...] | Test performed by immunoassay using Hyatt Chemistry Professor i2000. . | [facility] | | Samples [...] + + + + + | [facility] | [address] | [place] [address] | | | SERVICES, SPECIAL | PARK [...] [facility] | [address] | [place] [address] | | | SERVICES, CENTER FOR | [...] (L) | 1.6 - 2.6 mg/dL | [facility] | | | [facility] | | | LABORATORY | | | | | | SERVICES, | | | | | | [facility] | | | | | | [...] LABORATORY | [address] | [place] [address] | | | SERVICES, [facility] | | | | | HEALTH [...] LABORATORY | | | | | | [facility], | | | | | | [facility] | | | | | | [...] [facility] | [address] | [place] [address] | | | SERVICES, CENTER FOR | | | | | HEALTH + HEALING | | | | + + + + + [facility] - COMPLETE METABOLIC SET (06/24/2019 7:16 AM [...] | | | LABORATORY | | | [facility] | | | SERVICES, | | | [...] MDRD equation recommended by the National | [facility] | | Kidney Disease Education Program. Estimated [...] LABORATORY | [address] | [place] [address] | | | [facility] | | | | | [...] | Test performed by immunoassay using Hyatt Chemistry Professor i2000. . | [facility] | | Samples [...] | + + + + + | [facility] | [address] | [place] [address] | | | SERVICES, SPECIAL | PARK [...] determined by the [facility] | | | Molecular Diagnostic Center. It [...] of 1988. The [facility] Molecular | | | Diagnostic Center is a fully licensed and/or accredited clinical | | | laboratory under CLIA, CAP, and the [facility]. | | + + + + + + + + | Performing | Address | City/State/[facility] Cent[facility]ode | Phone Number | | Organization | | | | + + + + + | [facility] | [address] | [place] [address] | | | DIAGNOSTIC | [address] [...] LABORATORY | [address] | [place] [address] | | | [facility] | | | | | HEALTH + [...] + + + + + | [facility] | [address] | [place] [address] | | | SERVICES, [facility] | | | | | HEALTH [...] LABORATORY | [address] | [place] [address] | | | SERVICES, [facility] | | | | | HEALTH [...] | | | LABORATORY | | | [facility] | | | SERVICES, | | | [...] MDRD equation recommended by the National | [facility] | | Kidney Disease Education Program. Estimated [...] | + + + + + | [facility] | [address] | [place] [address] | | | SERVICES, [facility] | | | | | HEALTH [...] LABORATORY | [address] | [place] [address] | | | [facility] | | | | | [...] | + + + + + | [facility] | [address] | [place] [address] | | | [facility], [facility] | | | | | HEALTH [...] LABORATORY | [address] | [place] [address] | | | [facility], [facility] | | | | | HEALTH [...] | | | LABORATORY | | | [facility] | | | SERVICES, | | | [...] SERVICES, | | | | | | [facility] | | | | | | HEALTH [...] | + + + + + | [facility] | [address] | [place] [address] | | | SERVICES, [facility] | | | | | HEALTH + [...]
--- OUTSIDE RECORDS SUMMARY | ~2020-03-12 | XMS | Encounter Summary ---
Demographics + + + | Address | [address] | | | [place] [address] | + + + | Home Phone [...] + +------+ + | Care Guest Services Associate Name | Role | Phone | + +------+ + | Meredith Sanchez | PCP | | + +------+ + Encounter Details +--------+ + + + + | Date | Type | Department | Care Team | Description | +--------+ + + + + | 06/07/ | Pharmacy | Pharmacy @ [facility] | | | | 2019 | Visit | [address] | | | | | | [address] Mailcode: | | | | | | [facility] | | | | | | and Healing, | | | | | | [address] | | | | | | [place], [place] | | | | | | [address] | | | +--------+ + + + [...]
--- OUTSIDE RECORDS SUMMARY | ~2020-03-12 | XMS | Encounter Summary ---
Demographics + + + | Address | [address] | | | [place] [address] | + + + | Home Phone [...] Team Providers + +------+ + | Care Courtesy Van Driver Name | Role | Phone | + +------+ + | Meredith Sanchez | PCP | | + +------+ + Encounter Details +--------+---------+ + + + | Date | Type | Department | Care Team | Description | +--------+---------+ + + + | 02/17/ | Office | Center for | Ruba Olivia, | Herpes zoster | | 2019 | Visit | Hematologic | [address] | without complication | | | | Malignancies at [facility] | [address] | (Primary Dx) | | | | [address] | [place], [place] | | | | | [facility] | [address] | | | | | and Healing, | [phone] | | | | | [address] | | | | | | [place], [place] | | | | | | [address] | | | +--------+---------+ + + + [...] documented as of this encounter Progress Notes Ruba Olivia MD - 02/17/2019 12:00 PM PDTFormatting of this note might be different f rom the original. Reason for visit: follow-up herpes zoster S: Pt seen in joint appt with Dr. De La Torre. Ms. 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 She was initially treated with IV acyclovir fro m approx 01/10 through 01/16 then transitioned to valacyclovir 1g TID to complete an additiona l 7d then decreased to 500mg BID. She developed tiny blisters in the area of her shingles ve ry shortly after decreasing to prophylactic dose. Valcyclovir was increased back to 1g TID b y her local oncologist. Her skin is now completely healed after completing an additional 14d of therapy and she is back on prophylactic dose 1g daily. She has a persistent patch of dis colored skin in the area of her zoster. Recently, she has noted itching over her L upper [address] near her shoulder and also over her back. She had a faint red rash over her back (bilater al faint erythema in cell phone photo) but no skin blisters or ulcers. She has been outdoors in the sun but under a "shade" tree recently. She denies f/c/s. ROS: as above Current Outpatient Medications: apixaban 2.5 mg oral tablet, Take 1 tablet by mouth two lazara es daily., Disp: 60 tablet, Rfl: 2 escitalopram oxalate 10 mg oral tablet, Take 10 mg by mouth once daily., Disp: , Rfl: ondansetron 8 mg oral tablet, Take 8 mg by mouth every twelve hours as needed., Disp: , Rfl : triamterene-hydrochlorothiazide 37.5-25 mg oral capsule, Take 1 capsule by mouth once daily ., Disp: , Rfl: valACYclovir 500 mg oral tablet, Take 1 tablet by mouth two times daily. Indications: viral infection prevention, Disp: 60 tablet, Rfl: 11 Last 24 hour min/max Temp: 36.9 C (98.4 F) @FLOWSTATR(6:24::1)@ Pulse: 75 @FLOWSTATR(8:24::1)@ @FLOWSTATR(9:24::1)@ BP: 151/85 @FLOWSTATR(5:24::1)@ SpO2: 98 % @FLOWSTATR(10:24::1)@ There is no height or weight on file to calculate BMI. 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 Previous cycle of azacitadine c/b febrile neutropenia and herpes zoster involving R chest wall treated with IV acyclovir then valacyclovir. Skin lesions have resolved completely on exam today and she is now on prophylactic valacyclovir. Recommendations: 1. Continue valacyclovir at 500mg BID (ASBMT, Tomestefania 2009) through day +365 and throughout period of immunosuppression 2. Counseled pt to contact BMT team if she has any sxs concerning for recurrent shingles ra sh 3. No current infectious contraindication to chemo or SCT 4. Follow-up with ID prn Discussed with Dr. De La Torre. Ruba Olivia MD Infectious Diseases documented in this encounter Plan of Treatment Not on filedocumented as of this encounter Visit Diagnoses + + | Diagnosis | + + | Herpes zoster without complication - Primary | + + documented in this encounter
--- OUTSIDE RECORDS SUMMARY | ~2020-03-12 | XMS | Encounter Summary ---
Demographics + + + | Address | [address] | | | [place] [address] | + + + | Home Phone [...] Phone | + + +---------+ + | Clauida Cota | ECON | Unknown | | + + +---------+ + Care Team Providers + +------+ + | Care Cement Production Plant Operator Name | Role | Phone | + +------+ + | Meredith Sanchez | PCP | | + +------+ + Encounter Details +--------+ + + + + | Date | Type | Department | Care Team | Description | +--------+ + + + + | 07/11/ | Documentati | LAB CORE [address] | Tarah Steven MD | | | 2020 | on | [address] | [address] [facility] | | | | | [place] | [address] | | | | | [address] | [place], [place] | | | | | [phone] | [address] | | | | | | [phone] | | | | | | | [...]
--- OUTSIDE RECORDS SUMMARY | ~2020-03-12 | XMS | Encounter Summary ---
Demographics + + + | Address | [address] | | | [place] [address] | + + + | Home Phone [...] Team Providers + +------+ + | Care Stave Hewer Name | Role | Phone | + +------+ + | Meredith Sanchez | PCP | | + +------+ + Encounter Details +--------+--------+ + + + | Date | Type | Department | Care Team | Description | +--------+--------+ + + + | 05/29/ | Travel | | | | | 2019 | | | | | +--------+--------+ + [...]
--- OUTSIDE RECORDS SUMMARY | ~2020-03-12 | XMS | Encounter Summary ---
Demographics + + + | Address | [address] | | | [place] [address] | + + + | Home Phone [...] Team Providers + +------+ + | Care Vp & General Counsel Name | Role | Phone | + +------+ + | Meredith Sanchez | PCP | | + +------+ + Encounter Details +--------+ + + + + | Date | Type | Department | Care Team | Description | +--------+ + + + + | 06/30/ | Pharmacy | Pharmacy @ [facility] | | | | 2019 | Visit | [address] | | | | | | [address] Mailcode: | | | | | | [facility] | | | | | | and Healing, | | | | | | [address] | | | | | | [place], [place] | | | | | | [address] | | | +--------+ + + + [...]
--- OUTSIDE RECORDS SUMMARY | ~2020-03-12 | XMS | Encounter Summary ---
Demographics + + + | Address | [address] | | | [place] [address] | + + + | Home Phone | | + + + | Preferred Language | Unknown | + + + | Marital Status | Single | + + + | Mu-Ism Affiliation | NRP | + + + [...] Team Providers + +------+ + | Care Bilingual Legal Assistant Name | Role | Phone | [...] | | | syndrome) | Melly | Health and | | | | | (HCC) | [facility] [place] | Healing, | | | | | Procedures | [address] | [address] | | | | | [place] | Phone: | [place], [place] | | | | | OFFICE/OUTPT | [phone] | [address] | | | | | | Fax: | Phone: | | | | | VISIT,EST,LE | [phone] | [phone] | | | | | VL IV [place] | | Fax: | | | | | EST PATIENT | | [phone] | | | | | LEVEL V | | | +--------+--------+ + + + + Encounter Details +--------+ + + + + | Date | Type | Department | Care Team | Description | +--------+ + + + + | 05/22/ | Hospital | [facility] | | | | 2019 | Encounter | Clinics at S | | | | | | [facility] [address] | | | | | [address] [facility] | | | | | | Health and Healing, | | | | | | [address] | | | | | | [place], [place] | | | | | | [address] | | | | | | [phone] | | | +--------+ + + + [...] + + + | Blood Pressure | 119/69 | 05/22/2019 10:06 AM | | | | | PST | | + + + + + | Pulse | 91 | 05/22/2019 10:06 AM | | | | | PST | | + + + + + | Temperature | 36.6 C (97.9 F) | 05/22/2019 10:06 AM | | | | | PST | | + + + + + | Respiratory Rate | 18 | 05/22/2019 10:06 AM | | | | | PST | | + + + + + | Oxygen Saturation | 97% | 05/22/2019 10:06 AM | | | | | PST | | + + + + + | Inhaled Oxygen | - | - | | | Concentration | | | | + + + + + | Weight | 62.9 kg (138 lb 11.2 | 05/22/2019 10:06 AM | | | | oz) | PST | | + + + + + | Height | - | - | | + + + + + | Body Mass Index | 24.85 | 04/15/2019 1:50 PM | | | [...] this encounter Progress Notes Mary Grace Smith, CARRIE - 05/22/2019 10:00 AM PST INFUSION NURSING NOTE Allergies: Nona is allergic to cefepime and sulfa (sulfonamide antibiotics). Narrative: Patient arrives to clinic walking independently. 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 Nursing Assessment: Fever/Chills/Infection: No SOB / Cough: No Dizziness/Lightheaded/Fatigue: Yes - fatigue r/t treatment. Pt noting some days more increa sed than others, yesterday "I slept all day." Pt does feel like her rest days are helpful an d restorative. Signs/Symptoms Bleeding: No Neuropathy: No Mucositis: Yes - decreased taste Nausea/Vomiting: Yes Appetite: decreased, due to taste changes, but getting in po. Weight stable. Diarrhea/Constipation: Yes - How often? 1-2 soft BMS DAILY, denies, pain, blood. PO Fluid Intake: Less than 2 L DAILY per pt.. Rash/Skin sores/Edema: No Urinary Issues: No Pain: No Vascular Access: Groshong accessed per protocol. Good blood return noted. Appropriate waste discarded. Meghna bs drawn and sent. Groshong pulse flushed with 20 mL NS. Patient discharged home. Per Orders: Infusion Plan: 1. Pt given 2 grams IV via groshong mag for previous low mag of 1.5. 2. Pt given 1 L NS via groshong for low po intake. 3. ANC 1000 today, per provider no GCSF required today. 4. Creat 1.3 and BUN 22 today; provider notified, no additional orders placed. Patient was reminded to call clinic with [...] + | ANTIBODY SCREEN | Routin | 05/22/2019 | MDS | Results for this | | | e | 11:29 AM | (myelodysplastic | procedure are in the | | | | PST | syndrome) ([facility] | results section. | + +--------+ + + + | TYPE AND SCREEN | Routin | 05/22/2019 | MDS | Results for this | | | e | 11:29 AM | (myelodysplastic | procedure are in the | | | | PST | syndrome) ([facility] | results section. | + +--------+ + + + | ABO & RH TYPE | Routin | 05/22/2019 | MDS | Results for this | | | e | 11:29 AM | (myelodysplastic | procedure are in the | | | | PST | syndrome) ([facility] | results section. | + +--------+ + + + | CBC AND AUTO DIFF | Routin | 05/22/2019 | MDS | Results for this | | | e | 10:01 AM | (myelodysplastic | procedure are in the | | | | PST | syndrome) ([facility]) | results section. | + +--------+ + + + | [facility] - COMPLETE | Routin | 05/22/2019 | MDS | Results for this | | METABOLIC SET | e | 10:01 AM | (myelodysplastic | procedure are in the | | | | PST | syndrome) ([facility]) | results section. | + +--------+ + + + | [facility] CBC W | Routin | 05/22/2019 | MDS | Results for this | | DIFFERENTIAL | e | 10:01 AM | (myelodysplastic | procedure are in the | | | | PST | syndrome) ([facility]) | results section. | + +--------+ + + + | LDH TOTAL, PLASMA | Routin | 05/22/2019 | MDS | Results for this | | | e | 10:01 AM | (myelodysplastic | procedure are in the | | | | PST | syndrome) ([facility]) | results section. | + +--------+ + + + documented in this encounter Results ANTIBODY SCREEN (05/22/2019 11:29 AM PST) + + + + + [...] [facility] | [address] | [place] [address] | | | SERVICES, | [address] | | | | TRANSFUSION MEDICINE | | | | + + + + + ABO & RH TYPE (05/22/2019 11:29 AM PST) + + + + + [...] | + + + + + | [facility] | [address] | [place] [address] | | | SERVICES, | [address] | | | | TRANSFUSION MEDICINE | | | | + + + + + CBC AND AUTO DIFF (05/22/2019 10:01 AM PST) + + + + + + | Component | Value | Ref Range | Performed | Pathologist | | | | | At | Signature | + + + + + + | WHITE CELL | 2.41 (L) | 3.50 - 10.80 | [facility] | | | COUNT | | K/cu mm | LABORATORY | | | | | | SERVICES, | | | | | | [facility] + | | | | | | HEALING | | + + + + + + | RED CELL | 2.86 (L) | 4.00 - 5.20 | [facility] [...] + + + + | HEMATOCRIT | 24.3 (L) | 36.0 - 46.0 % | [facility] | | | | | | LABORATORY | | | | | | SERVICES, | | | | | | [facility] | | [facility] + | | | | | | HEALING | | + + + + + + | MCV | 85.0 | 80.0 - 100.0 fL | [facility] [...] + + + | RDW SD | 41.7 | 35.1 - 46.3 fL | [facility] [...] + + + + | NEUTROPHIL | 41.9 (L) | 50.0 - 70.0 % | [facility] | | | % | | | LABORATORY | | | | | | SERVICES, | | | | | | [facility] | | | | [facility] + | | | | | | HEALING | | + + + + + + | LYMPHOCYTE | 13.3 (L) | 18.0 - 42.0 % | [facility] | | | % | | | LABORATORY | | | | | | SERVICES, | | | | | | [facility] | | [facility] + | | | | | | HEALING | | + + + + + + | MONOCYTE % | 31.5 (H) | 3.5 - 9.0 % | [facility] | | | | | | LABORATORY | | | | | | SERVICES, | | | | | | [facility] | | [facility] + | | | | | | HEALING | | + + + + + + | EOS % | 10.0 (H) | 1.0 - 3.0 % | [...] + + + + | IG% | 2.9 (H) | 0.0 - 1.0 % | [facility] | | | | | | LABORATORY | | | | | | SERVICES, | | | | | | [facility] | | [facility] + | | | | | | HEALING | | + + + + + + | NEUTROPHIL | 1.01 (L) | 1.80 - 7.70 | [facility] | | | # | | K/cu mm | LABORATORY | | | | | | SERVICES, | | | | | | [facility] | | | | [facility] + | | | | | | HEALING | | + + + + + + | NEUTROPHIL | 1.01 (L)Comment: | 1.80 - 7.70 | [facility] [...] LABORATORY | [address] | [place] [address] | | | SERVICES, [facility] | | | | | HE[facility] + HEALING | | | | + + + + + [facility] - COMPLETE METABOLIC SET (05/22/2019 10:01 AM PST) + + + + + + | Component | Value | Ref Range | Performed | Pathologist | | | | | At | Signature | + + + + + + | GLUCOSE, | 107 (H) | 70 - 99 mg/dL | [...] + + + + | CREATININE | 1.33 (H) | 0.60 - 1.10 | [facility] | | | PLASMA | | mg/dL | LABORATORY | | | (LAB) | | | SERVICES, | | | | | | [facility] | | [facility] | [facility] + | | | | | | HEALING | | + + + + + + | EGFR | 50 (L) | >60 mL/min | [facility] | | | - | | | LABORATORY | | | [facility] | | | SERVICES, | | | | | | [facility] | | | | [facility] + | | | | | | HEALING | | + + + + + + | EGFR NON | 42 (L) | >60 mL/min | [...] + + + + | POTASSIUM, | 3.9 [...] + + + + | CHLORIDE, | 99 [...] + + + + | CALCIUM, | 9.2 [...] + + + + | CALCIUM(ALB | 9.7 | 8.6 - 10.2 | [facility] | [...] + + + | ALK PHOS | 116 (H) | 42 - 98 U/L | [...] | | | | | [facility] | | | | | | [...] | + + + + + | [facility] | [address] | [place] [address] | | | SERVICES, [facility] | | | | | HE[facility] + HEALING | | | | + + + + + LDH TOTAL, PLASMA (05/22/2019 10:01 AM PST) + +---------+ + + + | Component | Value | Ref Range | Performed | Pathologist | | | | | At | Signature | + +---------+ + + + | LD TOTAL, | 137 | <=250 U/L | [facility] | | [...] + + + + + | [facility] | [address] | [place] [address] | | | SERVICES, [facility] | | | | | HEALTH [...] in water IV | New Bag | 05/22/20 | 2 g | | | | (RTU) 2 g 2 g, intravenous, | | 19 10:25 | | | | | ONCE, 1 dose, 05/22/19 at | | AM PST | | | | | 1015 | | | | | | + +---------+ +------+------+------+ +---+---+ | | | +---+---+ + +---------+ + +---+---+ | sodium chloride 0.9 % (NS) IV | New Bag | 05/22/20 | 1,000 mL | | | | infusion 1,000 mL, intravenous, | | 19 10:25 | | | | | NEEDED, Starting 05/22/19 | | AM PST | | | | | at 1000, Until 05/22/19 at | | | | | | | 1916, decreased po intake, | | | | | | | dizziness | | | | | | + +---------+ + +---+---+ +---+---+ | | | +---+---+ documented in this encounter
--- OUTSIDE RECORDS SUMMARY | ~2020-03-12 | XMS | Encounter Summary ---
Demographics + + + | Address | [address] | | | [place] [address] | + + + | Home Phone [...] Team Providers + +------+ + | Care Sales Representative Aircraft Name | Role | Phone | + +------+ + | Meredith Sanchez | PCP | | + +------+ + Encounter Details +--------+------+ + + + | Date | Type | Department | Care Team | Description | +--------+------+ + + + | 02/12/ | Lab | Laboratory at [facility] | | S/P cord blood | | 2020 | | [address] | | transplantation; MDS | | | | [facility] |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and Healing, | | syndrome) ([facility]); | | | | [address] | | 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 | | | |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) | | + +--------+ + + + | [facility] - PHOSPHORUS, | Routin | 02/13/2020 | S/P cord blood | Results for this | | PLASMA | e | 10:09 AM | transplantation MDS | procedure are in the | | | | PDT | (myelodysplastic | results section. | | | |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) | | + +--------+ + + + | [facility] - LDH TOTAL, | Routin | 02/13/2020 | S/P cord blood | Results for this | | PLASMA | e | 10:09 AM | transplantation MDS | procedure are in the | | | | PDT | (myelodysplastic | results section. | | | |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) | | + +--------+ + + + | CHIMERISM SORTED | Routin | 02/13/2020 | S/P cord blood | Results for this | | CELLS, DNA, BLOOD | e | 10:09 AM | transplantation | procedure are in the | | (KDL) | | PDT | GVHD (graft versus | results section. | | | | | host disease) ([facility]) | | + +--------+ + + + | CBC AND AUTO DIFF | Routin | 02/13/2020 | S/P cord blood | Results for this | | | e | 10:09 AM | transplantation MDS | procedure are in the | | | | PDT | (myelodysplastic | results section. | | | | | syndrome) ([facility]) | | + +--------+ + + + | CHIMERISM SORTED | Routin | 02/13/2020 | S/P cord blood | Results for this | | CELLS, DNA, BLOOD | e | 10:09 AM | transplantation | procedure are in the | | | | PDT | GVHD (graft versus | results section. | | | | | host disease) ([facility]) | | + +--------+ + + + | [facility] - COMPLETE | Routin | 02/13/2020 | S/P cord blood | Results for this | | METABOLIC SET | e | 10:09 AM | transplantation MDS | procedure are in the | | | | PDT | (myelodysplastic | results section. | | | | | syndrome) ([facility]) | | + +--------+ + + + | [facility] CBC W | Routin | 02/13/2020 | S/P cord blood | Results for this | | DIFFERENTIAL | e | 10:09 AM | transplantation MDS | procedure are in the | | | | PDT | (myelodysplastic | results section. | | | | | syndrome) ([facility]) | | + +--------+ + + + | CMV PCR | Routin | 02/13/2020 | S/P cord blood | Results for this | | QUANTITATION, PLASMA | e | 10:09 AM | transplantation MDS | procedure are in the | | | | PDT | (myelodysplastic | results section. | | | | | syndrome) ([facility]) | | + +--------+ + + + | TACROLIMUS, WHOLE | Routin | 02/13/2020 | S/P cord blood | Results for this | | BLOOD | e | 10:09 AM | transplantation MDS | procedure are in the | | | | PDT | (myelodysplastic | results section. | | | | | syndrome) ([facility]) | | + +--------+ + + + documented in this encounter Results CHIMERISM SORTED CELLS, DNA, BLOOD (KDL) (02/13/2020 10:09 AM PDT) + + + [...] | Donor #1 Name/ID: NMDP | | [facility] | | | ION | [id number] Gender: | | DIAGNOSTIC | | | | MaleDonor #2 Name/ID: | | | | | | [facility] [id number] | | LABORATORIE | | | | Gender: FemaleDate of | | S | | | | Transplant: | | | | | | 04/22/2019Chimerism | | | | | | Results (Sorted | | | | | | Cells):CD3+ T-cells: 0% | | | | | | Host; 100% Donor #2 | | | | | | (NMDP [id number] ); No | | | | | | Detectable Donor # 1 | | | | | | (NMDP [id number])CD33+ | | | | | | Myeloid cells: 0% Host; | | | | | | 100% Donor #2 (NMDP | | | | | | [id number]); No | | | | | | Detectable Donor #1 | | | | | | (NMDP [id number])Sorted | | | | | | Cell Purity (Reported | | | | | | by the [facility] Special | | | | | | Immunology | | | | | | Laboratory):CD3+ = | | | | | | 80,000 cells; 98 % | | | | | | nvidLD08+ = 150,000 | | | | | | cells; 98 % | | | | | | [...] METHOD(S) | The laboratory received | | [facility] | | | | specimens from the [...] | | | | | | loci [id number], [id number], | | | | | | [id number], [id number], [id number], | | | | | | THO1, [id number], [id number], | | | | | | [id number], [id number], vWA, | | | | | | TPOX, D18S51, [id number], | | | | | | FGA [...] | | | | determined by the [facility] | | LABORATORIE | | | [...] | | | | | (CLIA). The [facility] | | | | | | Diagnostics | | | | | | Laboratories are fully | | | | | | licensed by the state of | | | | | | [place] under CLIA and | | | | | | are accredited by the | | | | | | [employer] | | | | | | Pathologists (CAP). | | | | | | Filler In: | | | | | | Tayo Singletary, | | | | | | Isabela, Ph.DReviewed | | | | | | and electronically | | | | | | signed by ZURDO Harrison | | | | | | MD MENDEZ,PhD02/17/2020 | | | | | | 12:17 PM | | | | + + + + + + + + | Specimen | + + | Blood - Blood | | (substance) | + + + + + + + | Performing | Address | City/State/Zipcode | Phone Number | | Organization | | | | + + + + + | [facility] | [address] | [place] [address] | | | DIAGNOSTIC | [address] | | | | LABORATORIES | | | | + + + + + CBC AND AUTO DIFF (02/13/2020 10:09 AM PDT) + + + + + + | Component | Value | Ref Range | Performed | Pathologist | | | | | At | Signature | + + + + + + | WHITE CELL | 6.57 | 3.50 - 10.80 | [facility] | | | COUNT | | K/cu mm | LABORATORY | | | | | | SERVICES, | | | | | | [facility] | | [facility] + | | | | | | HEALING | | + + + + + + | RED CELL | 3.82 (L) | 4.00 - 5.20 | [facility] [...] + + + + | HEMATOCRIT | 36.4 | 36.0 - 46.0 % | [facility] | | | | | | LABORATORY | | | | | | SERVICES, | | | | | | [facility] | | | | | | [facility] + | | | | | | HEALING | | + + + + + + | MCV | 95.3 | 80.0 - 100.0 fL | [facility] | | | | | | LABORATORY | | | | | | SERVICES, | | | | | | [facility] | | | | | | [facility] + | | | | | | HEALING | | + + + + + + | MCHC | 29.7 (L) | 32.0 - 36.0 | [facility] | | | | | g/dL | LABORATORY | | | | | | SERVICES, | | | | | | [facility] | | | | | | [facility] + | | | | | | HEALING | | + + + + + + | RDW SD | 53.7 (H) | 35.1 - 46.3 fL | [facility] | | | | | | LABORATORY | | | | | | SERVICES, | | | | | | [facility] | | | | | | [facility] + | | | | | | HEALING | | + + + + + + | PLATELET | 161 | 150 - 400 K/cu | [facility] | | | COUNT | | mm | LABORATORY | | | | | | SERVICES, | | | | | | [facility] | | | | | | [facility] + | | | | | | HEALING | | + + + + + + | MPV | 12.0 | 9.7 - 12.3 fL | [facility] [...] + + + + | NEUTROPHIL | 78.9 (H) | 50.0 - 70.0 % | [facility] | | | % | | | LABORATORY | | | | | | SERVICES, | | | | | | [facility] | | | | | | [facility] + | | | | | | HEALING | | + + + + + + | LYMPHOCYTE | 9.6 (L) | 18.0 - 42.0 % | [facility] | | | % | | | LABORATORY | | | | | | SERVICES, | | | | | | [facility] | | | | | | [facility] + | | | | | | HEALING | | + + + + + + | MONOCYTE % | 9.0 | 3.5 - 9.0 % | [facility] [...] + + + + | IG% | 1.7 (H) | 0.0 - 1.0 % | [facility] | | | | | | LABORATORY | | | | | | SERVICES, | | | | | | [facility] | | | | | | [facility] + | | | | | | HEALING | | + + + + + + | NEUTROPHIL | 5.19 | 1.80 - 7.70 | [facility] | | | # | | K/cu mm | LABORATORY | | | | | | SERVICES, | | | | | | [facility] | | | | | | [facility] + | | | | | | HEALING | | + + + + + + | NEUTROPHIL | 5.19Comment: Preliminary | 1.80 - 7.70 | [facility] [...] + + + | MONOCYTE # | 0.59 | 0.10 - 0.90 | [facility] | [...] LABORATORY | [address] | [place] [address] | | | [facility] | | | | | HEALTH + HEALING | | | | + + + + + CHIMERISM SORTED CELLS, DNA, BLOOD (02/13/2020 10:09 [...] | + + + + + | [facility] | [address] | [place] [address] | | | SERVICES, SPECIAL | JASON [...] | Test performed by immunoassay using [employer] Melt House Centrifugal Operator i2000. . | [facility] | | [...] | + + + + + | [facility] | [address] | [place] [address] | | | SPECIAL MENG | JASON [...] 2 fold may not reflect true | [facility] | | biological changes and must [...] | | characteristics determined by the [facility] | | | Molecular Diagnostic Center. It has not been cleared or approved by | | | the Food and Drug Administration. FDA approval is not required for | | | clinical use of this test, and therefore validation was done as | | | required under the requirements of the Clinical Laboratory Improvement | | | Act of 1988. The [facility] Molecular | | | Diagnostic Center is a fully licensed and/or accredited clinical | | | laboratory under CLIA, CAP, and the [facility]. | | + + + + + + + + | Performing | Address | City/State/Zipcode | Phone Number | | Organization | | | | + + + + + | [facility] | [address] | [place] [address] | | | DIAGNOSTIC | [address] [...] | + + + + + | [facility] | [address] | [place] [address] | | | SERVICES, [place] [facility] | | | | | HEALTH [...] LABORATORY | [address] | [place] [address] | | | SERVICES, CENTER FOR | [...] | + + + + + | [facility] | [address] | [place] [address] | | | SERVICES, [facility] FOR | | | | | HEALTH + HEALING | | | | + + + + + [facility] - COMPLETE METABOLIC SET (02/13/2020 10:09 AM [...] | | | LABORATORY | | | [facility] | | | SERVICES, | | | [...] + | [facility] | [address] | [place] [address] | | | SERVICES, [facility] | | | | | HEALTH [...]
--- OUTSIDE RECORDS SUMMARY | ~2020-03-12 | XMS | Encounter Summary ---
Demographics + + + | Address | [address] | | | [place] [address] | + + + | Home Phone [...] Providers + +------+ + | Care Marble Installation Helper Name | Role | Phone | + +------+ + | Meredith Sanchez | PCP | | + +------+ + Encounter Details +--------+ + + + + | Date | Type | Department | Care Team | Description | +--------+ + + + + | 07/07/ | Sqe | [facility] | Sejal De La Torre | | | 2019 | | Clinics at S | N, DO [address] | | | | | [place] [address] | | | | | [place] for | [place], [place] | | | | | Health and Healing, | [address] | | | | | [address] | [phone] | | | | | [place], [place] | | | | | | [address] | | | | | | [phone] | | | +--------+ + + + [...]
--- OUTSIDE RECORDS SUMMARY | ~2020-03-12 | XMS | Encounter Summary ---
Demographics + + + | Address | [address] | | | [place] [address] | + + + | Home Phone [...] Providers + +------+ + | Care Tip Fixer Name | Role | Phone | + +------+ + | Meredith Sanchez | PCP | | + +------+ + Encounter Details +--------+ + + + + | Date | Type | Department | Care Team | Description | +--------+ + + + + | 07/11/ | Documentati | LAB CORE [address] | [facility], | | | 2020 | on | [address] | [place] [address] [address] | | | | | [place], [place] | [address] | | | | | [address] | [place], [place] | | | | | [phone] | [address] | | | | | | [phone] | | | | | | | [...]
--- OUTSIDE RECORDS SUMMARY | ~2020-03-12 | XMS | Encounter Summary ---
Demographics + + + | Address | [address] | | | [place] [address] | + + + | Home Phone [...] Team Providers + +------+ + | Care Bucket Chucker Name | Role | Phone | + +------+ + | Meredith Sanchez | PCP | | + +------+ + Encounter Details +--------+--------+ + + + | Date | Type | Department | Care Team | Description | +--------+--------+ + + + | 02/01/ | Travel | | | | | [...]
--- OUTSIDE RECORDS SUMMARY | ~2020-03-12 | XMS | Encounter Summary ---
Demographics + + + | Address | [address] | | | [place] [address] | + + + | Home Phone [...] Team Providers + +------+ + | Care Knitting Machine Tender Name | Role | Phone | + +------+ + | Meredith Sanchez | PCP | | + +------+ + Encounter Details +--------+ + + + + | Date | Type | Department | Care Team | Description | +--------+ + + + + | 09/09/ | Pharmacy | Pharmacy @ [facility] | | | | 2019 | Visit | [address] | | | | | | Reji Callahan Mailcode: | | | | | | [facility] | | | | | | and Healing, | | | | | | [address] | | | | | | [place], [place] | | | | | | [address] | | | +--------+ + + + [...]
--- OUTSIDE RECORDS SUMMARY | ~2020-03-12 | XMS | Encounter Summary ---
Demographics + + + | Address | [address] | | | [place] [address] | + + + | Home Phone [...] Team Providers + +------+ + | Care Pulper Operator Name | Role | Phone | + +------+ + | Meredith Sanchez | PCP | | + +------+ + Reason for Visit + + + | Reason | Comments | + + + | Lab Draw | | + + + | Transfusion | | + + + AUTH/CERT +--------+--------+ [...] | +--------+ + + + + | 05/19/ | Hospital | [facility] | [address], [address] | | | 2019 | Encounter | Clinics at S | [address] [place], | | | | | [facility] [address] | [place] [address] | | | | | [facility] | | | | | [facility], | | | | | | [address] | | | | | | [place], [place] | | | | | | [address] | | | | | | [phone] | | | +--------+ + + + [...] + + + | Blood Pressure | 123/69 | 05/19/2019 1:54 PM | | | | | PST | | + + + + + | Pulse | 80 | 05/19/2019 1:54 PM | | | | | PST | | + + + + + | Temperature | 36.9 C (98.5 F) | 05/19/2019 1:54 PM | | | | | PST | | + + + + + | Respiratory Rate | 16 | 05/19/2019 1:54 PM | | | | | PST | | + + + + + | Oxygen Saturation | 99% | 05/19/2019 1:54 PM | | | | | PST | | + + + + + | Inhaled Oxygen | - | - | | | Concentration | | | | + + + + + | Weight | 62.6 kg (138 lb) | 05/19/2019 10:57 AM | | | | | PST [...] encounter Progress Notes Aniya Shankar RN - 05/19/2019 10:50 AM PSTFormatting of this note might be different fr om the original. Assessment Patient arrives to clinic walking independently. Patient states she is feeling weak today. 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 Patient has complains of weakness and fatigue. Fever/Chills/Infection: No SOB / Cough: No Fatigue/Dizziness/Lightheaded: Yes, +weakness and fatigue Signs/Symptoms Bleeding: No Neuropathy: No Mucositis: No Nausea/Vomiting: Yes, on zofran and compazine Appetite: Decreased but improving per pt. Diarrhea/Constipation: Yes - How often? Diarrhea x1 today 05/19 PO Fluid Intake: 2 L. Urinary Issues: No Rash/Skin/Edema: No Pain: No Lab Groshong accessed per protocol. Good blood return noted. Appropriate waste discarded. Meghna portillo drawn and sent. Groshong pulse flushed with 20 mL NS. Patient discharged home. Immunosuppressant Pt was told to TAKE her tacrolimus today 05/19 but HOLD for Thursday appt on 05/20. Reordered lab for 05/20/19. Dressing Change Due 05/22 Education For education provided, see education tab. Supportive Care Growth factor Zarxio 300 mcg SubQ was given in Abdomen, LLQ for ANC < 1500 for 2 consecutive days. Transfusion/Infusion Lab Results Component Value Date PLT 10 05/19/2019 Orders to transfuse platelet product for a platelet count today as above. Each unit was walter cked by two RNs to confirm the unit number, ABO and Rh type printed on tag matched informati on on blood bag and to confirm crossmatch compatibility. At the bedside, two RNs verified t he correct patient using two unique identifiers, confirmed the unit number, ABO and Rh type printed on tag matched the information on blood bag and confirmed crossmatch compatibility. Informed consent was verified. The patient was not premedicated. She received 1 unit of HLA matched platelets per Provide r s orders. 1 unit HLA matched PLTs ordered for 05/20/19. Transfusion was tolerated well w ithout complication. Frequent vital signs were monitored throughout the transfusion and rev iewed by me. For transfusion details, see ONC Lines & Transfusions doc flowsheet. Discharge Line care provided, see Flowsheet for details. Patient was instructed to check out at the f ront desk prior to leaving the clinic. Patient d/c d ambulatory in stable condition. Next appointment scheduled 05/20/19 at 9:10 am. Aniya Shankar RN documented in this e ncounter Plan of Treatment + + +--------+ + + | Name | Type | Priori | Associated Diagnoses | Order Schedule | | | | ty | | | + + +--------+ + + | PRODUCT - PLATELET | Lab - Blood | Routin | MDS | Ordered: 05/19/2019 | | PHERESIS | Product | e | (myelodysplastic | | | LEUKOREDUCED | |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) | | + + +--------+ + + | MANUAL DIFFERENTIAL | Lab - | Routin | MDS | 05/19/2019 until | | | [facility] | e | (myelodysplastic | discontinued, 1 | | | Performable | | syndrome) ([facility]) | completed | | | s | | | | + + +--------+ + + | RBC MORPHOLOGY | Lab - | Routin | MDS | 05/19/2019 until | | | [facility] | e | (myelodysplastic | discontinued, 1 | | | Performable | | syndrome) ([facility]) | completed | | | s | | | | + + +--------+ + + documented as of this encounter Procedures + +--------+ + + + | Procedure Name | Priori | Date/Time | Associated Diagnosis | Comments | | | ty | | | | + +--------+ + + + | PRODUCT - PLATELET | Routin | 05/20/2019 | | Results for this | | PHERESIS | e | 11:20 AM | | procedure are in the | | LEUKOREDUCED | | PST | | results section. | + +--------+ + + + | PRODUCT - PLATELET | Routin | 05/19/2019 | MDS | Results for this | | PHERESIS | e | 12:01 PM | (myelodysplastic | procedure are in the | | LEUKOREDUCED | | PST | syndrome) ([facility]) | results section. | + +--------+ + + + | [facility] - MAGNESIUM, | Routin | 05/19/2019 | MDS | Results for this | | PLASMA | e | 10:59 AM | (myelodysplastic | procedure are in the | | | | PST | syndrome) ([facility]) | results section. | + +--------+ + + + | [facility] - PHOSPHORUS, | Routin | 05/19/2019 | MDS | Results for this | | PLASMA | e | 10:59 AM | (myelodysplastic | procedure are in the | | | | PST | syndrome) ([facility]) | results section. | + +--------+ + + + | [facility] - LDH TOTAL, | Routin | 05/19/2019 | MDS | Results for this | | PLASMA | e | 10:59 AM | (myelodysplastic | procedure are in the | | | | PST | syndrome) ([facility]) | results section. | + +--------+ + + + | RBC MORPHOLOGY | Routin | 05/19/2019 | MDS | Results for this | | | e | 10:59 AM | (myelodysplastic | procedure are in the | | | | PST | syndrome) ([facility]) | results section. | + +--------+ + + + | CBC AND AUTO DIFF | Routin | 05/19/2019 | MDS | Results for this | | | e | 10:59 AM | (myelodysplastic | procedure are in the | | | | PST | syndrome) ([facility]) | results section. | + +--------+ + + + | MANUAL DIFFERENTIAL | Routin | 05/19/2019 | MDS | Results for this | | | e | 10:59 AM | (myelodysplastic | procedure are in the | | | | PST | syndrome) ([facility]) | results section. | + +--------+ + + + | [facility] - COMPLETE | Routin | 05/19/2019 | MDS | Results for this | | METABOLIC SET | e | 10:59 AM | (myelodysplastic | procedure are in the | | | | PST | syndrome) ([facility]) | results section. | + +--------+ + + + | [facility] CBC W | Routin | 05/19/2019 | MDS | Results for this | | DIFFERENTIAL | e | 10:59 AM | (myelodysplastic | procedure are in the | | | | PST | syndrome) ([facility]) | results section. | + +--------+ + + + documented in this encounter Results PRODUCT - PLATELET PHERESIS LEUKOREDUCED (05/20/2019 11:20 AM PST) + + + + + + | Component | Value | Ref Range | Performed | Pathologist | | | | | At | Signature | + + + + + + | PRODUCT | PLATELETS PHERESIS, | | [facility] | | | DESCRIPTION | LEUKOCYTE REDUCED, | | LABORATORY | | | | IRRADIATED | | SERVICES, | | | | | | TRANSFUSION | | | | | | MEDICINE | | + + + + + + | PRODUCT | [id number] | | [facility] | | | UNIT [...] + + + + | EXPIRATION | [id number] | | [facility] | | | DATE [...] + + + + | BLOOD | [id number] | | [facility] | | | PRODUCT [...] [facility] | [address] | [place] [address] | | | SERVICES, | [address] | | | | TRANSFUSION MEDICINE | | | | + + + + + PRODUCT - PLATELET PHERESIS LEUKOREDUCED (05/19/2019 12:01 PM PST) + + + + + [...] + + + + | PRODUCT | [id number] | | [facility] | | | UNIT # | | | LABORATORY | | | | | | SERVICES, | | | | | | TRANSFUSION | | | | | | MEDICINE | | + + + + + + | UNIT ABO | AB | | [facility] | | | | [...] + + + + | EXPIRATION | [id number] | | [facility] | | | DATE | | | LABORATORY | | | | | | SERVICES, | | | | | | TRANSFUSION | | | | | | MEDICINE | | + + + + + + | BLOOD TYPE | [id number] | | [facility] | | | BARCODE | | | LABORATORY | | | | | | SERVICES, | | | | | | TRANSFUSION | | | | | | MEDICINE | | + + + + + + | BLOOD | [id number] | | [facility] | | | PRODUCT [...] + | [facility] | [address] | [place] [address] | | | SERVICES, | [address] | | | | TRANSFUSION MEDICINE | | | | + + + + + RBC MORPHOLOGY (05/19/2019 10:59 AM PST) + +---------+ + + + | Component | Value | Ref Range | Performed | Pathologist | | | | | At | Signature | + +---------+ + + + | DOHLE | Present | | [facility] | | | BODIES | | | LABORATORY | | | | | | SERVICES, | | | | | | [facility] + | | | | | | [facility]ALING | | + +---------+ + + + | TOXIC | Present | | [facility] | | | GRANULATION | | | LABORATORY | | | | | | SERVICES, | | | | | | [facility] | | [facility] + | | | | | | HEALING | | + +---------+ + + + | VACUOLATED | Present | | [facility] | | | NEUTS | | | LABORATORY | | | [...] [facility] | [address] | [place] [address] | | | SERVICES, [facility] | | | | | HEALTH + HEALING | | | | + + + + + MANUAL DIFFERENTIAL (05/19/2019 10:59 AM PST) + + + + + [...] + + + + | LYMPHOCYTE | 7.0 (L) | 18.0 - 42.0 % | [facility] | | | % | | | LABORATORY | | | | | | SERVICES, | | | | | | [facility] | | | [facility] + | | | | | | HEALING | | + + + + + + | MONOCYTE % | 8.8 | 3.5 - 9.0 % | [facility] | | | | | | LABORATORY | | | | | | SERVICES, | | | | | | [facility] | | [facility] + | | | | | | HEALING | | + + + + + + | EOSINOPHIL | 2.6 | 1.0 - 3.0 % | [facility] | | | % | | | LABORATORY | | | | | | SERVICES, | | | | | | [facility] | | | | [facility] + | | | | | | HEALING | | + + + + + + | BASOPHIL % | 0.0 | 0.0 - 2.0 [...] + + + + | NEUTROPHIL | 4.34 | 1.80 - 7.70 | [facility] | | | # | | K/cu mm | LABORATORY | | | | | | SERVICES, | | | | | | [facility] | | | [facility] + | | | | | | HEALING | | + + + + + + | LYMPHOCYTE | 0.39 (L) | 1.00 - 4.80 | [facility] | | | # | | K/cu mm | LABORATORY | | | | | | SERVICES, | | | | | | [facility] | | | | [facility] + | | | | | | HEALING | | + + + + + + | MONOCYTE # | 0.48 | 0.10 - 0.90 | [facility] | | | | | K/cu mm | LABORATORY | | | | | | SERVICES, | | | | | | [facility] | | | | [facility] + | | | | | | HEALING | | + + + + + + | EOSINOPHIL | 0.14 | 0.00 - 0.50 | [facility] | | | # | | K/cu mm | LABORATORY | | | | | | SERVICES, | | | | | | [facility] | | | | | [facility] + | | | | | | HEALING | | + + + + + + | BASOPHIL # | 0.00 | 0.00 - 0.10 | [facility] | | | | | K/cu mm | LABORATORY | | | | | | SERVICES, | | | | | | [facility] | | | [facility] + | | | | | | HEALING | | + + + + + + | IG# | 0.14 (H) | 0.00 - 0.10 | [facility] [...] (IG) are an automated count of metamyelocytes, | LABORATORY | | myelocytes and promyelocytes. Bands are not included in the IG count. | SERVICES, | | Bands are included in the neutrophil count. | [facility] | | | HEALTH + | | | HEALING | + + + + + + + + | Performing | Address | City/State/Zipcode | Phone Number | | Organization | | | | + + + + + | [facility] | [address] | [place] [address] | | | [facility] | | | | | HEALTH + HEALING | | | | + + + + + CBC AND AUTO DIFF (05/19/2019 10:59 AM PST) + + + + + + | Component | Value | Ref Range | Performed | Pathologist | | | | | At | Signature | + + + + + + | WHITE CELL | 5.50 | 3.50 - 10.80 | [facility] | | | COUNT | | K/cu mm | LABORATORY | | | | | | SERVICES, | | | | | | [facility] | | [facility] + | | | | | | HEALING | | + + + + + + | RED CELL | 3.31 (L) | 4.00 - 5.20 | [facility] | | | COUNT | | M/cu mm | LABORATORY | | | | | | SERVICES, | | | | | | [facility] | | | | [facility] + | | | | | | HEALING | | + + + + + + | HEMOGLOBIN | 9.3 (L) | 12.0 - 16.0 | [facility] | | | | | g/dL | LABORATORY | | | | | | SERVICES, | | | | | | [facility] | [facility] | | | [facility] + | | | | | | HEALING | | + + + + + + | HEMATOCRIT | 28.2 (L) | 36.0 - 46.0 % | [facility] | | | | | | LABORATORY | | | | | | SERVICES, | | | | | | [facility] | | [facility] + | | | | | | HEALING | | + + + + + + | MCV | 85.2 | 80.0 - 100.0 fL | [facility] [...] + + + | RDW SD | 43.6 | 35.1 - 46.3 fL | [facility] | | | | | | LABORATORY | | | | | | SERVICES, | | | | | | [facility] | | | [facility] + | | | | | | HEALING | | + + + + + + | PLATELET | 10 (LL) | 150 - 400 K/cu | [facility] [...] + + + + | NEUTROPHIL | 3.07Comment: Preliminary | 1.80 - 7.70 | [facility] [...] | + + + + + | [facility] | [address] | [place] [address] | | | SERVICES, [facility] | | | | | HEALTH + HEALING | | | | + + + + + [facility] - LDH TOTAL, PLASMA (05/19/2019 10:59 AM PST) + +---------+ + + + | Component | Value | Ref Range | Performed | Pathologist | | | | | At | Signature | + +---------+ + + + | LD TOTAL, | 141 | <=250 U/L | [facility] | | [...] LABORATORY | [address] | [place] [address] | | | [facility] | | | | | HEALTH + HEALING | | | | + + + + + [facility] - MAGNESIUM, PLASMA (05/19/2019 10:59 AM PST) + +-------+ + + + [...] | + + + + + | [facility] | [address] | [place] [address] | | | SERVICES, [facility] | | | | | HEALTH + HEALING | | | | + + + + + [facility] - PHOSPHORUS, PLASMA (05/19/2019 10:59 AM PST) + +-------+ + + + [...] [facility] | [address] | [place] [address] | | | [facility] | | | | | HEALTH + HEALING | | | | + + + + + [facility] - COMPLETE METABOLIC SET (05/19/2019 10:59 AM PST) + +---------+ + + + | Component | Value | Ref Range | Performed | Pathologist | | | | | At | Signature | + +---------+ + + + | GLUCOSE, | 162 (H) | 70 - 99 mg/dL | [...] | | | LABORATORY | | | [place] | | | SERVICES, | | | [...] +---------+ + + + | CHLORIDE, | 98 [...] +---------+ + + + | CALCIUM, | 8.9 | 8.6 - 10.2 | [...] +---------+ + + + | BILIRUBIN | 0.7 | 0.3 - 1.2 mg/dL | [facility] | | | TOTAL | | | LABORATORY | | | | | | SERVICES, | | | | | | [facility] | | | | | | [facility] + | | | | | | HEALING | | + +---------+ + + + | TOTAL | 6.8 [...] +---------+ + + + | AST(SGOT) | 11 [...] MDRD equation recommended by the National | [facility] | | Kidney Disease Education [...] [facility] | [address] | [place] [address] | | | SERVICES, [facility] | | | | | HEALTH + HEALING | | | | + + + + + documented in this encounter Visit Diagnoses + + | Diagnosis | + + | Immunocompromised state due to drug therapy - Primary | + + | MDS (myelodysplastic syndrome) (HCC) Myelodysplastic syndrome, unspecified | + + documented in this encounter Administered Medications + +--------+ +---------+------+---------+ | Medication Order | MAR | Action | Dose | Rate | Site | | | Action | Date | | | | + +--------+ +---------+------+---------+ | filgrastim-sndz (YULISSA) | Given | 05/19/20 | 300 mcg | | Abdomen | | injection 300 mcg 300 mcg | | 19 12:54 | | | | | (rounded from 313 mcg = 5 mcg/kg | | PM PST | | | | | | | | | | | | 62.6 kg), subcutaneous, DAILY, | | | | | | | First dose on Cheryl 05/19/19 at | | | | | | | 1130, Until Discontinued | | | | | | + +--------+ +---------+------+---------+ +---+---+ | | | +---+---+ documented in this encounter"
--- OUTSIDE RECORDS SUMMARY | ~2020-03-12 | XMS | Encounter Summary ---
Demographics + + + | Address | [address] | | | [place] [address] | + + + | Home Phone [...] + + | 01/24/ | Telephone | [facility] | Sejal De La Torre | | | 2019 | | Clinics at S | N, DO [address] | | | | | [place] [address] | | | | | [place] [facility] | [place], [place] | | | | | Health and Healing, | [address] | | | | | [address] | [phone] | | | | | [place], [place] | | | | | | [address] | | | | | | [phone] | | | +--------+ + + + [...] this encounter Miscellaneous Notes Telephone Encounter - Claribel De La Torrenirubens [place] DO - 01/24/2019 1:40 PM [facility] bone marrow biopsy results. Marrow dated 01/17/19 shows MDS with <2% blasts showing response after 2 cycle of azacytidine. Cytogenetics and genetrails pending. I reviewed these results with the patient. We are still looking for a donor including mariya g a niece. We are also looking into cords. I have called her local oncologist, Dr. Tripp umaña to update him and left VM. She will need to stay on treatment on until a donor is identified. All questions answered. Sejal De La Torre DO Prescription Clerkpin machine operator [facility] [address] [place] [address] documented in this encounter Plan of Treatment Not on filedocumented as of this encounter Visit Diagnoses Not on filedocumented in this encounter"
--- OUTSIDE RECORDS SUMMARY | ~2020-03-12 | XMS | Encounter Summary ---
Demographics + + + | Address | [address] | | | [place] [address] | + + + | Home Phone [...] Team Providers + +------+ + | Care Instructional Technology Teacher Name | Role | Phone | + +------+ + | Meredith Sanchez | PCP | | + +------+ + Encounter Details +--------+--------+ + + + | Date | Type | Department | Care Team | Description | +--------+--------+ + + + | 03/14/ | Travel | | | | | [...]
--- OUTSIDE RECORDS SUMMARY | ~2020-03-12 | XMS | Encounter Summary ---
Demographics + + + | Address | [address] | | | [place] [address] | + + + | Home Phone [...] Team Providers + +------+ + | Care Psychometric Examiner Name | Role | Phone | [...] Requisition | [facility] | N, DO [address] | | | | | [place], [place] | [address] | | | | | [address] | [place], [place] | | | | | | [address] | | | | | | [phone] | | | | | | | [...] | | STORAGE, BLOOD | e | 9:28 AM | | procedure are in the | | | | PST | | results section. | + +--------+ + + + documented in this encounter Results DONOR ENGRAFTMENT STORAGE, BLOOD (08/06/2016 9:28 AM PST) + + + + + + | Component | Value | Ref Range | Performed | Pathologist | | | | | At | Signature | + + + + + + | INTERPRETAT | Donor Name: NMDP | | [facility] | | | ION | [id number] Gender: | | DIAGNOSTIC | | | | FDate of Transplant: | | | | | | 04.22.2019Recipient | | LABORATORIE | | | | Name: Angelacrescencioliana Nona | | S | | | | [place] (MR [id number]) | | | | | | Sufficient DNA was | | | | | | isolated from the donor | | | | | | specimen and will be | | | | | | kept in the [facility] | [...] | Upon your request, DNA | | [facility] | | | | was isolated from [...] | | | | kept in the [facility] | [...] | | | | | convenience at (014) | | | | | | [phone]. | | | | + + + + + + | DISCLAIMER | This test was developed | | [facility] | | | | and its performance | | DIAGNOSTIC | | | | characteristics | | | | | | determined by the [facility] | | LABORATORIE | | | | [facility] | | S | [...] of | | | | | | [place] under CLIA and | | | | | | are accredited by the | | | | | | [employer] | | | | | | Pathologists (CAP). | | | | | | Airline Station Agent: | | | | | | Tayo Singletary, | | | | | | Isabela, Ph.D. | | | | + + + + + + | DONOR | Sufficient DNA for | | [facility] | | | ENGRAFTMENT | testing. | [...] + | [facility] | [address] | [place] [address] | | | DIAGNOSTIC | [address] | | | | LABORATORIES | | | | + + + + + documented in this encounter Visit Diagnoses + + | Diagnosis | + + | Bone marrow donor | + + documented in this encounter"
--- OUTSIDE RECORDS SUMMARY | ~2020-03-12 | XMS | Encounter Summary ---
Demographics + + + | Address | [address] | | | [place] [address] | + + + | Home Phone [...] Providers + +------+ + | Care Regional Clinical Research Associate Name | Role | Phone | + +------+ + | Meredith Sanchez | PCP | | + +------+ + Encounter Details +--------+--------+ + + + | Date | Type | Department | Care Team | Description | +--------+--------+ + + + | 02/22/ | Travel | | | | | [...]
--- OUTSIDE RECORDS SUMMARY | ~2020-03-12 | XMS | Encounter Summary ---
Demographics + + + | Address | [address] | | | [place] [address] | + + + | Home Phone [...] Team Providers + +------+ + | Care Delivery Associate Name | Role | Phone | [...] 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 | Sejal Meadows, | [facility] [address] | | | | | (myelodyspla | DO [address] | | | | | stic | Stephanie Valverde | [facility] | | | | syndrome) | [address] | Health and | | | | | (HCC) | [place], [place] | Healing, | | | | | Procedures | [address] | [address] | | | | | [place] | Phone: | [place], [place] | | | | | OFFICE/OUTPT | [phone] | [address] | | | | | | Fax: | Phone: | | | | | VISIT,EST,LE | [phone] | [phone] | | | | | VL IV [place] | | Fax: | | | | | EST PATIENT | | [phone] | | | | | LEVEL V | | | +--------+--------+ + + + + Encounter Details +--------+ + + + + | Date | Type | Department | Care Team | Description | +--------+ + + + + | 06/07/ | Hospital | [facility] | | | | 2019 | Encounter | Clinics at S | | | | | | [facility] [address] | | | | | | [address] [facility] | | | | | | [facility] and Healing, | | | | | | [address] | | | | | | [place], [place] | | | | | | [address] | | | | | | [phone] | | | +--------+ + + + [...] + + + | Blood Pressure | 109/63 | 06/07/2019 9:28 AM | | | | | PST | | + + + + + | Pulse | 86 | 06/07/2019 9:28 AM | | | | | PST | | + + + + + | Temperature | 36.8 C (98.2 F) | 06/07/2019 9:28 AM | | | | | PST | | + + + + + | Respiratory Rate | 16 | 06/07/2019 9:28 AM | | | | | PST | | + + + + + | Oxygen Saturation | 97% | 06/07/2019 9:28 AM | | | | | PST | | + + + + + | Inhaled Oxygen | - | - | | | Concentration | | | | + + + + + | Weight | 60.8 kg (134 lb) | 06/07/2019 9:28 AM | | | | | PST [...] encounter Progress Notes Marj Reyes RN - 06/07/2019 9:20 AM PSTAssessment Patient arrives to clinic walking independently. Patient states she is feeling well today. 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 Patient has no new complaints. Fever/Chills/Infection: Yes, reports temp 100.3 at home 2 days ago- notified MD. SOB / Cough: No Fatigue/Dizziness/Lightheaded: Yes, increased fatigue Signs/Symptoms Bleeding: No Neuropathy: No Mucositis: No Nausea/Vomiting: No Appetite: poor. Diarrhea/Constipation: No PO Fluid Intake: <2L- 1L NS bolus administered. Urinary Issues: No Rash/Skin/Edema: No Pain: No Lab [facility] accessed per protocol. Good blood return noted. Appropriate waste discarded. Meghna portillo drawn and sent. Groshong pulse flushed with 20 mL NS. Patient discharged home. Immunosuppressant Patient reports holding their dose of tacrolimus today. They report taking 1 mg AM and 0.5 mg PM. This matches the medication list. Confirmed with patient and caregiver that we have t he correct contact number for their medication change calls. Dressing Change Dressing change due 04/10/19. Education For education provided, see education tab. Supportive Care Magnesium Magnesium Sulfate 8 gm infused over 4 hours per supportive care orders for a magnesium leve l of 1.2. For infusion details, see MAR. Transfusion/Infusion 40mEq of PO K+ administered. Discharge Line care provided, see Flowsheet for details. Patient was instructed to check out at the [employer] ront desk prior to leaving the clinic. Patient d/c d ambulatory in stable condition. Next appointment scheduled 06/10/19 at 11:10 am. Marj Reyes RN documented in this enco unter Plan of Treatment Not on filedocumented as of this encounter Procedures + +--------+ + + + | Procedure Name | Priori | Date/Time | Associated Diagnosis | Comments | | | ty | | | | + +--------+ + + + | ANTIBODY SCREEN | Urgent | 06/07/2019 | MDS | Results for this | | | | 9:57 AM | (myelodysplastic | procedure are in the | | | | PST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) | results section. | + +--------+ + + + | TYPE AND SCREEN | Urgent | 06/07/2019 | MDS | Results for this | | | | 9:57 AM | (myelodysplastic | procedure are in the | | | | PST | syndrome) ([facility]) | results section. | + +--------+ + + + | ABO & RH TYPE | Urgent | 06/07/2019 | MDS | Results for this | | | | 9:57 AM | (myelodysplastic | procedure are in the | | | | PST | syndrome) ([facility]) | results section. | + +--------+ + + + | [facility] - MAGNESIUM, | Routin | 06/07/2019 | MDS | Results for this | | PLASMA | e | 9:28 AM | (myelodysplastic | procedure are in the | | | | PST | syndrome) ([facility]) S/P | results section. | | | | | cord blood | | | | | | transplantation | | + +--------+ + + + | [facility] - PHOSPHORUS, | Routin | 06/07/2019 | MDS | Results for this | | PLASMA | e | 9:28 AM | (myelodysplastic | procedure are in the | | | | PST | syndrome) ([facility]) S/P | results section. | | | | | cord blood | | | | | | transplantation | | + +--------+ + + + | [facility] - LDH TOTAL, | Routin | 06/07/2019 | MDS | Results for this | | PLASMA | e | 9:28 AM | (myelodysplastic | procedure are in the | | | | PST | syndrome) ([facility]) S/P | results section. | | | | | cord blood | | | | | | transplantation | | + +--------+ + + + | CBC AND AUTO DIFF | Routin | 06/07/2019 | MDS | Results for this | | | e | 9:28 AM | (myelodysplastic | procedure are in the | | | | PST | syndrome) ([facility]) S/P | results section. | | | | | cord blood | | | | | | transplantation | | + +--------+ + + + | VERITO-SEVILLA VIRUS | Routin | 06/07/2019 | MDS | Results for this | | PCR, PLASMA | e | 9:28 AM | (myelodysplastic | procedure are in the | | | | PST | syndrome) ([facility]) S/P | results section. | | | | | cord blood | | | | | | transplantation | | + +--------+ + + + | [facility] - COMPLETE | Routin | 06/07/2019 | MDS | Results for this | | METABOLIC SET | e | 9:28 AM | (myelodysplastic | procedure are in the | | | | PST | syndrome) ([facility]) S/P | results section. | | | | | cord blood | | | | | | transplantation | | + +--------+ + + + | [facility] CBC W | Routin | 06/07/2019 | MDS | Results for this | | DIFFERENTIAL | e | 9:28 AM | (myelodysplastic | procedure are in the | | | | PST | syndrome) ([facility]) S/P | results section. | | | | | cord blood | | | | | | transplantation | | + +--------+ + + + | CMV PCR | Routin | 06/07/2019 | MDS | Results for this | | QUANTITATION, PLASMA | e | 9:28 AM | (myelodysplastic | procedure are in the | | | | PST | syndrome) ([facility]) S/P | results section. | | | | | cord blood | | | | | | transplantation | | + +--------+ + + + | TACROLIMUS, WHOLE | Routin | 06/07/2019 | MDS | Results for this | | BLOOD | e | 9:28 AM | (myelodysplastic | procedure are in the | | | | PST | syndrome) ([facility]) S/P | results section. | | | | | cord blood | | | | | | transplantation | | + +--------+ + + + | HUMAN HERPES VIRUS 6 | Routin | 06/07/2019 | MDS | Results for this | | PCR (PLASMA OR CSF) | e | 9:28 AM | (myelodysplastic | procedure are in the | | | | PST | syndrome) ([facility]) S/P | results section. | | | | | cord blood | | | | | | transplantation | | + +--------+ + + + documented in this encounter Results ANTIBODY SCREEN (06/07/2019 9:57 AM PST) + + + + + [...] [facility] | [address] | [place] [address] | | | SERVICES, | [address] | | | | TRANSFUSION MEDICINE | | | | + + + + + ABO & RH TYPE (06/07/2019 9:57 AM PST) + + + + + [...] | + + + + + | [facility] | [address] | [place] [address] | | | SERVICES, | [address] | | | | TRANSFUSION MEDICINE | | | | + + + + + CBC AND AUTO DIFF (06/07/2019 9:28 AM PST) + + + + + + | Component | Value | Ref Range | Performed | Pathologist | | | | | At | Signature | + + + + + + | WHITE CELL | 3.27 (L) | 3.50 - 10.80 | [facility] | | | COUNT | | K/cu mm | LABORATORY | | | | | | SERVICES, | | | | | | [facility] + | | | | | | [facility]ALING | | + + + + + + | RED CELL | 2.87 (L) | 4.00 - 5.20 | [facility] | | | COUNT | | M/cu mm | LABORATORY | | | | | | SERVICES, | | | | | | [facility] | | | [facility] + | | | | | | HEALING | | + + + + + + | HEMOGLOBIN | 8.2 (L) | 12.0 - 16.0 | [facility] | | | | | g/dL | LABORATORY | | | | | | SERVICES, | | | | | | [facility] | | | [facility] + | | | | | | HEALING | | + + + + + + | HEMATOCRIT | 24.7 (L) | 36.0 - 46.0 % | [facility] | | | | | | LABORATORY | | | | | | SERVICES, | | | | | | [facility] | | | | [facility] + | | | | | | HEALING | | + + + + + + | MCV | 86.1 | 80.0 - 100.0 fL | [facility] [...] + + + | RDW SD | 47.1 (H) | 35.1 - 46.3 fL | [facility] | | | | | | LABORATORY | | | | | | SERVICES, | | | | | | [facility] | | | | | [facility] + | | | | | | HEALING | | + + + + + + | PLATELET | 75 (L) | 150 - 400 K/cu | [...] + + + + | LYMPHOCYTE | 12.5 (L) | 18.0 - 42.0 % | [facility] | | | % | | | LABORATORY | | | | | | SERVICES, | | | | | | [facility] | | | [facility] + | | | | | | HEALING | | + + + + + + | MONOCYTE % | 21.1 (H) | 3.5 - 9.0 % | [facility] | | | | | | LABORATORY | | | | | | SERVICES, | | | | | | [facility] | | | | | [facility] + | | | | | | HEALING | | + + + + + + | EOS % | 5.2 (H) | 1.0 - 3.0 % | [...] + + + + | NEUTROPHIL | 1.90 | 1.80 - 7.70 | [facility] | | | # | | K/cu mm | LABORATORY | | | | | | SERVICES, | | | | | | [facility] | | | | | | [facility] + | | | | | | HEALING | | + + + + + + | NEUTROPHIL | 1.90Comment: Preliminary | 1.80 - 7.70 | [facility] [...] + + + | MONOCYTE # | 0.69 | 0.10 - 0.90 | [facility] | [...] | included in the neutrophil count. | [facility] | | | HEALTH + | | | HEALING | + + + + + + + + | Performing | Address | City/State/Zipcode | Phone Number | | Organization | | | | + + + + + | [facility] | [address] | [place] [address] | | | [facility] | | | | | [...] [facility] | | | | to the [facility] | | | | | | Test Directory for | | | | | | validated specimen | | | | | | source information: | | | | | | [email or web address] | | | | | | esting. [...] - [facility] | | | | [place] [address] | | | | | | [phone]. | | | | | | Zeferino [...] | | | | | determined by [facility] | | | | | | Laboratories. See | | | | | | Compliance Statement A: | | | | | | [employer] | | | | + + + [...] [facility] | [address] | [place], [place] | | | [facility] | | [address] | | + + + + + VERITO-SEVILLA VIRUS PCR, PLASMA (06/07/2019 9:28 AM PST) [...] we have completed a quantitative polymerase | [facility] | | chain reaction (PCR) based study [...] | | performance characteristics determined by the [facility] | | | Diagnostics Center. It has not been cleared or approved by the Food | | | and Drug Administration. FDA approval is not required for clinical | | | use of this test, and therefore validation was done as required under | | | the requirements of the Clinical Laboratory Improvement Act of 1988. | | | The [facility] is a fully licensed and/or accredited clinical laboratory | | | under CLIA, CAP, and the [facility]. References: 1) | | | Phong et al. Laboratory assays for EBV-related disease. J [facility] | | | Diagn 10: 279-292, 2008. 2) Kristao et al. EBV viral load [...] | | real-time polymerase chain reaction. Transfusion 2008;48:0753-1592. | | | 4) Bassam BEARDEN, Genny CASAS, Félix I, van keshia Kristen W, et al. | | | Frequent monitoring of Verito-Sevilla virus DNA load in unfractionated | | | whole blood is essential for early detection of posttransplant | | | lymphoproliferative disease in high-risk patients. Blood | | | 2001;97(5):5919-3279. | | + + + + + + + + | Performing | Address | City/State/Zipcode | Phone Number | | Organization | | | | + + + + + | [facility] | [address] | [place] [address] | | | DIAGNOSTIC | [address] [...] | Test performed by immunoassay using Hyatt Foiling Machine Adjuster i2000. . | [facility] | | Samples [...] | + + + + + | [facility] | [address] | [place] [address] | | | SERVICES, SPECIAL | [address] [...] | | | characteristics determined by the [facility] | | | Molecular Diagnostic Center. It has not been cleared or approved by | | | the Food and Drug Administration. FDA approval is not required for | | | clinical use of this test, and therefore validation was done as | | | required under the requirements of the Clinical Laboratory Improvement | | | Act of 1988. The [facility] | | | Diagnostic Center is a fully licensed and/or accredited clinical | | | laboratory under CLIA, CAP, and the [facility]. | | + + + + + + + + | Performing | Address | City/State/[facility] | Phone Number | | Organization | | | | + + + + + | [facility] | [address] | [place] [address] | | | DIAGNOSTIC | [address] [...] | + + + + + | [facility] | [address] | [place] [address] | | | SERVICES, [place] [facility] | | | | | HEALTH + HEALING | | | | + + + + + [facility] - COMPLETE METABOLIC SET (06/07/2019 9:28 AM [...] | | | LABORATORY | | | [facility] | | | SERVICES, | | | [...] MDRD equation recommended by the National | [facility] | | Kidney Disease Education Program. Estimated [...] LABORATORY | [address] | [place] [address] | | | [facility] | | | | | [...] LABORATORY | [address] | [place] [address] | | | SERVICES, CENTER FOR | [...] + + + + + | [facility] | [address] | [place] [address] | | | [facility] | | | | | [...] in water IV | New Bag | 06/07/20 | 2 g | | | | (RTU) 2 g 2 g, intravenous, | | 19 9:46 | | | | | ONCE, 1 dose, 06/07/19 at | | AM PST | | | | | 0930 | | | | | | + +---------+ +------+------+------+ +---+---+ | | | +---+---+ + +---------+ +-----+---+---+ | magnesium sulfate in water IV | New Bag | 06/07/20 | 2 g | | | | (RTU) 2 g 2 g, intravenous, | | 19 10:33 | | | | | ONCE, 1 dose, Thu06/07/19 at | | AM PST | | | | | 1030 | | | | | | + +---------+ +-----+---+---+ +---+---+ | | | +---+---+ + +---------+ +-----+---+---+ | magnesium sulfate in water IV | New Bag | 06/07/20 | 4 g | | | | (RTU) 4 g 4 g, intravenous, | | 19 11:42 | | | | | ONCE, 1 dose, Thu06/07/19 at | | AM PST | | | | | 1030 | | | | | | + +---------+ +-----+---+---+ +---+---+ | | | +---+---+ + +-------+ +--------+---+---+ | potassium chloride SR | Given | 06/07/20 | 40 mEq | | | | (KLOR-CON) tablet 40 mEq 40 mEq, | | 19 10:33 | | | | | oral, ONCE, 1 dose, 06/07/19 | | AM PST | | | | | at 1030 | | | | | | + +-------+ +--------+---+---+ +---+---+ | | | +---+---+ + +---------+ + +---+---+ | sodium chloride (NS) 0.9 % | New Bag | 06/07/20 | 1,000 mL | | | | bolus 1,000 mL 1,000 mL, | | 19 9:50 | | | | | intravenous, NEEDED, Starting | | AM PST | | | | | 06/07/19 at 1015, Until Tue | | | | | | | 06/07/19 at 9, decreased po | | | | | | | intake, dizziness | | | | | | + +---------+ + +---+---+ +---+---+ | | | +---+---+ documented in this encounter"
--- OUTSIDE RECORDS SUMMARY | ~2020-03-12 | XMS | Encounter Summary ---
Demographics + + + | Address | [address] | | | [place] [address] | + + + | Home Phone [...] Providers + +------+ + | Care Instrument Maker Apprentice Name | Role | Phone | + +------+ + | Meredith Sanchez | PCP | | + +------+ + Encounter Details +--------+ + + + + | Date | Type | Department | Care Team | Description | +--------+ + + + + | 06/28/ | Pharmacy | Pharmacy @ [facility] | | | | 2019 | Visit | [address] | | | | | | Reji [address] Mailcode: | | | | | | [facility] | | | | | | and Healing, | | | | | | [address] | | | | | | [place], [place] | | | | | | [address] | | | +--------+ + + + [...]
--- OUTSIDE RECORDS SUMMARY | ~2020-03-12 | XMS | Encounter Summary ---
Demographics + + + | Address | [address] | | | [place] [address] | + + + | Home Phone [...] Providers + +------+ + | Care Manager Storage Name | Role | Phone | + +------+ + | Meredith Sanchez | PCP | | + +------+ + Reason for Visit + +--------+ + | Reason | Onset | Comments | | | Date | | + +--------+ + | Medication | 05/28/ | Tacrolimus | | management | 2018 | | + +--------+ + Encounter Details +--------+ + + + + | Date | Type | Department | Care Team | Description | +--------+ + + + + | 05/24/ | Telephone | [facility] for | Apple Bergeron, | Medication | | 2019 | | Hematologic | [place] [address] | management | | | | Malignancies at | [facility] [address] | (Tacrolimus) | | | | [facility] | [place], [place] | | | | | [address] | [address] | | | | | Loop Mailcode: | [phone] | | | | | [id number] | | | | | | [facility] [place], | | | | | | [place] [address] | | | | | | [phone] | | | +--------+ + + + [...] this encounter Miscellaneous Notes Telephone Encounter - Tisha Anton RN - 06/13/2019 9:45 AM PSTInitial Assessment oNna Campuzano Ruchi's personal injury litigation paralegal for today is patient, Nona Hopper, and her conta ct phone number for today 06/13 is: [phone] . Nona has been advised of when [...] her last dose at 2100 (time) on 06/12/19 (date). elephone Encounte r - Qasim Jensen MA - 05/30/2019 3:54 PM PST Result Follow-up CSA level: Lab Results Component Value Date FK506 6.9 05/29/2019 Nona's dose will remain the same per LACY Fung. A message was left with Nona to return this phone call by 6pm today. elephone Encounter - Tisha Anton RN - 05/29/2019 11:11 AM PSTInitial Assessment Nona Campuzano Angelacrescencioliana's personal injury litigation paralegal for today is patient, Nona Hopper, and her conta ct phone number for today 05/29 is: [phone]. Nona has been advised of when to [...] her last dose at 2100 (time) on 05/28/2019 (date). elephone Alyson Walker MA - 05/28/2019 2:48 PM PST Result Follow-up CSA level: Lab Results Component Value Date FK506 12.8 05/27/2019 Nona will be contacted to change dose from 1.5 mg every morning and 1.0 mg every evening to 0.5mg every morning and 0.5 mg every evening per Sam Baron starting on 05-26-2019 (date ). Nona and/or her caregiver have been contacted and were able to provide verbal read back o f these instructions. 2 You Just now (2:50 PM) Result Follow-up CSA level: Lab Results Component Value Date FK506 12.8 05/27/2019 Nona will be contacted to change dose from 1.5 mg every morning and 1.0 mg every evening to 0.5mg every morning and 0.5 mg every evening per Sam Baron starting on 05-26-2019 (date ). Nona and/or her caregiver have been contacted and were able to provide verbal read back o f these instructions. Susan Gonzalez EDUCATIONAL PROGRAM ASSISTANT Incomplete Documentation Qasim Jensen MA 23 hours ago (3:43 PM) Result Follow-up CSA level: Lab Results Component Value Date FK506 12.8 05/27/2019 Nona will be contacted to change dose from 1 mg every morning and 1 mg every evening to H OLD until 05/28/19 then start 0.5 mg every morning and 0.5 mg every evening per Sam Baron NP starting on 05/26/19 (date). A message was left with Nona to return this phone call by 6pm today. Documentation Tisha Anton RN routed conversation to Jenniffer Powell Yesterday (10:16 AM) Tisha Anton RN Yesterday (10:16 AM) Initial Assessment Nona Hopper's personal injury litigation paralegal for today is herself, and her contact phone number for today 05/27 is: [phone]. Nona has been advised of when to [...] her last dose at 2100 (time) on 05/26/2019 (date). Documentation Mello 2 days ago Result Follow-up CSA level: Lab Results Component Value Date FK506 7.6 05/24/2019 Nona will be contacted to change dose from 1.0 mg every morning and 1.0 mg every evening to 1.5mg every morning and 1.0 mg every evening per [facility] starting on 05-24-2019. Nona and/or her caregiver have been contacted and were able to provide verbal read back o f these instructions. Penny [facility] Documentation Nona Cristina 2 days ago Isai Vargas MA 3 days ago Result Follow-up CSA level: Lab Results Component Value Date FK506 7.6 05/24/2019 Nona will be contacted to change dose from 1.0 mg every morning and 1.0 mg every evening to 1.5 mg every morning and 1.0 mg every evening per [facility] starting on 05/24 (date) . A second attempt was made to contact Nona at all phone numbers on file. A voicemail was l eft with dosing instructions and instructions to call back. Documentation Qasim Jensen MA 4 days ago Result Follow-up CSA level: Lab Results Component Value Date FK506 7.6 05/24/2019 Nona will be contacted to change dose from 1 mg every morning and 1 mg every evening to 1 .5 mg every morning and 1 mg every evening per [facility] starting on 05/24/2019 (date). A message was left with Nona to return this phone call by 6pm today. Documentation Marj Reyes, RN routed conversation to Ut Ankit Andre 4 days ago Marj Reyes RN 4 days ago Initial Assessment Nona Hopper's personal injury litigation paralegal for today is patient, Nona Campuzano Yuliyaliana, and her conta ct phone number for today 05/24 is: [phone]. Nona has been advised of when to expect a confirmation call regarding any necessary dose adjustments: yes. Nona was asked to contact this clinic if she has not received a confirma tion call within 24 hours. Nona reports she currently takes Tacrolimus 1 mg every morning and evening mg every eveni ng. This is the correct dose according to her most recent dose adjustment. Nona took her last dose at 2100 (time) on 05/23 (date). Documentation Encounter-Level Documents: There are no encounter-level documents. elephone Encounter - Qasim Jensen MA - 05/27/2019 3:41 PM PSTFormatting of this note might be different f rom the original. Result Follow-up CSA level: Lab Results Component Value Date FK506 12.8 05/27/2019 Nona will be contacted to change dose from 1 mg every morning and 1 mg every evening to H OLD until 05/28/19 then start 0.5 mg every morning and 0.5 mg every evening per Sam Baron NP starting on 05/26/19 (date). A message was left with Nona to return this phone call by 6pm today. elephone Encounter - Tisha Anton RN - 05/27/2019 9:44 AM PSTInitial Assessment Nona Hopper's personal injury litigation paralegal for today is herself, and her contact phone number for today 05/27 is: [phone]. Nona has been advised of when to [...] her last dose at 2100 (time) on 05/26/2019 (date). elephone Encounte r - Alyson Gonzalez MA - 05/26/2019 1:23 PM PST Result Follow-up CSA level: Lab Results Component Value Date FK506 7.6 05/24/2019 Nona will be contacted to change dose from 1.0 mg every morning and 1.0 mg every evening to 1.5mg every morning and 1.0 mg every evening per Apple Bergeron starting on 05-24-2019. Nona and/or her caregiver have been contacted and were able to provide verbal read back o f these instructions. Penny EDUCATIONAL PROGRAM ASSISTANT elephone Encounter - Isai Vargas MA - 05/25/2019 5:51 PM PST Result Follow-up CSA level: Lab Results Component Value Date FK506 7.6 05/24/2019 Nona will be contacted to change dose from 1.0 mg every morning and 1.0 mg every evening to 1.5 mg every morning and 1.0 mg every evening per Apple Bergeron starting on 05/24 (date) . A second attempt was made to contact Nona at all phone numbers on file. A voicemail was l eft with dosing instructions and instructions to call back. elephone Encounte r - Qasim Jensen MA - 05/24/2019 4:50 PM PST Result Follow-up CSA level: Lab Results Component Value Date FK506 7.6 05/24/2019 Nona will be contacted to change dose from 1 mg every morning and 1 mg every evening to 1 .5 mg every morning and 1 mg every evening per Apple Bergeron starting on 05/24/2019 (date). A message was left with Nona to return this phone call by 6pm today. elephone Encounter - Marj Reyes RN - 05/24/2019 10:25 AM PSTInitial Assessment Nona Hopper's personal injury litigation paralegal for today is patient, Nnoa Hopper, and her conta ct phone number for today 05/24 is: [phone]. Nona has been advised of when to expect a confirmation call regarding any necessary dose adjustments: yes. Nona was asked to contact this clinic if she has not received a confirma tion call within 24 hours. Nona reports she currently takes Tacrolimus 1 mg every morning and evening mg every eveni ng. This is the correct dose according to her most recent dose adjustment. Nona took her last dose at 2100 (time) on 05/23 (date). documented in this enco unter Plan of Treatment Not on filedocumented as of this encounter Visit Diagnoses Not on filedocumented in this encounter"
--- OUTSIDE RECORDS SUMMARY | ~2020-03-12 | XMS | Encounter Summary ---
Demographics + + + | Address | [address] | | | [place] [address] | + + + | Home Phone [...] Team Providers + +------+ + | Care House Wirer Helper Name | Role | Phone | + +------+ + | Meredith Sanchez | PCP | | + +------+ + Reason for Visit + +--------+ + | Reason | Onset | Comments | | | Date | | + +--------+ + | On Treatment Visit | 04/19/ | | | (OTV) | 2018 | | + +--------+ + AUTH/CERT +--------+--------+ [...] Description | +--------+---------+ + + + | 04/19/ | Office | Radiation Oncology | Mello Archibald, | Encounter for | | 2019 | Visit | at [facility] [address] | radiotherapy | | | | [address] | [facility] [address] | (Primary Dx) | | | | [place], [address] floor | [place], [place] | | | | | [place], [place] | [address] | | | | | [address] | [phone] | | | | | [phone] | | | +--------+---------+ + + + [...] + + + | Blood Pressure | 129/75 | 04/19/2019 4:08 PM | | | | | PDT | | + + + + + | Pulse | 95 | 04/19/2019 4:08 PM | | | | | PDT | | + + + + + | Temperature | 36.6 C (97.9 F) | 04/19/2019 4:08 PM | | | | | PDT | | + + + + + | Respiratory Rate | 16 | 04/19/2019 4:08 PM | | | | | PDT | | + + + + + | Oxygen Saturation | 95% | 04/19/2019 4:08 PM | | | | | PDT [...] documented as of this encounter Progress Notes Tayo Charles MD - 04/19/2019 5:10 PM PDTFormatting of this note might be different f rom the original. Radiation Oncology - On Treatment Visit Note ID: [id number] y.o. 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 We plan for full TBI to 12 Gy in 8 fractions per protocol. She is here today during treatment for an on treatment visit. Planned Total RT Dose: 12 Gy. Current Fraction: 4 of 8. Concurrent Chemotherapy: transplant regimen SUBJECTIVE: Doing very well. Denies N/V/fatigue. Standing during treatment. OBJECTIVE: Vital Signs: BP 129/75 | Pulse 95 | Temp 36.6 C (97.9 F) (Oral) | Resp 16 | SpO2 95 % Pain Score: Wt Readings from Last 3 Encounters: 04/19/19 72.3 kg (159 lb 6.3 oz) 04/14/19 68.9 kg (152 lb) 03/22/19 67.2 kg (148 lb 1.6 oz) Nona Hopper's mode of transportation is ambulatory. Skin: no erythema. LABS: Recent Labs 04/18/19 1740 04/19/19 0133 04/19/19 1525 WBC 6.91 5.36 4.84 RBC 3.47* 3.53* 3.83* HB 10.1* 10.0* 10.9* HCT 31.1* 31.7* 34.3* PLT 170 159 192 NEUTROPERC 98.5* 97.9* 98.8* LYMPHPERC 0.6* 1.1* 0.4* MONOPERC 0.3* 0.2* 0.0* BASOPERC 0.0 0.0 0.2 EOSPERC 0.0* 0.4* 0.0* Recent Labs 04/17/19 0049 04/18/19 0003 04/19/19 0133 04/19/19 1524 NA 140 -- 144 142 -- K 3.4 < > 4.0 2.7* 3.8 CL 110* -- 112* 105 -- BICARB 24 -- 28 32 -- BUN 18 -- 14 10 -- CR 0.59* -- 0.61 0.63 -- GLU 137* -- 110* 99 -- CA 8.2* -- 7.7* 8.0* -- AST 36 -- 19 17 -- ALT 37 -- 27 20 -- AP 94 -- 83 76 -- TBILI 0.3 -- 0.4 0.7 -- TP 5.9* -- 5.4* 5.4* -- ALB 3.0* -- 2.7* 2.7* -- < > = values in this interval not displayed. ASSESSMENT/PLAN: The patient's chart and films were reviewed. Cont RT. Tayo Charles MD Associated attestation - Mello Archibald MD - 04/21/2019 8:06 PM PDTI saw and evaluated Ms. Hopper with Dr. Charles and agree with his assessment and plan. Mello Archibald MD Dept of Radiation Medicine [facility] [place] Kurtis Foss MA - 04/19/2019 5:10 PM PDTFormatting of this note might be different fro m the original. Nursing Note Patient here for an On Treatment Visit. Vitals/Pain Level: BP 129/75 | Pulse 95 | Temp 36.6 C (97.9 F) (Oral) | Resp 16 | S pO2 95% Pain Score: Wt Readings from Last 3 Encounters: 04/19/19 72.3 kg (159 lb 6.3 oz) 04/14/19 68.9 kg (152 lb) 03/22/19 67.2 kg (148 lb 1.6 oz) Recent Labs 04/17/19 0049 04/18/19 0003 04/18/19 1740 04/19/19 0133 04/19/19 1524 WBC 13.72* < > 8.72 6.91 5.36 -- HB 11.2* < > 10.0* 10.1* 10.0* -- HCT 34.1* < > 30.9* 31.1* 31.7* -- PLT 210 < > 163 170 159 -- BUN 18 -- 14 -- 10 -- CR 0.59* -- 0.61 -- 0.63 -- NA 140 -- 144 -- 142 -- K 3.4 < > 4.0 -- 2.7* 3.8 MG 2.3 -- 2.0 -- 2.0 -- < > = values in this interval not displayed. documented in this en counter Plan of Treatment Not on filedocumented as of this encounter Visit Diagnoses + + | Diagnosis | + + | Encounter for radiotherapy - Primary Radiotherapy | + + documented in this encounter"
--- OUTSIDE RECORDS SUMMARY | ~2020-03-12 | XMS | Encounter Summary ---
Demographics + + + | Address | [address] | | | [place] [address] | + + + | Home Phone [...] Team Providers + +------+ + | Care Plant Control Operator Name | Role | Phone | + +------+ + | Meredith Sanchez | PCP | | + +------+ + Encounter Details +--------+ + + + + | Date | Type | Department | Care Team | Description | +--------+ + + + + | 08/26/ | Pharmacy | Pharmacy @ [facility] | | | | 2019 | Visit | [address] | | | | | | [address] Mailcode: | | | | | | [facility] | | | | | | and Healing, | | | | | | [address] | | | | | | [place], [place] | | | | | | [address] | | | +--------+ + + + [...]
--- OUTSIDE RECORDS SUMMARY | ~2020-03-12 | XMS | Encounter Summary ---
Demographics + + + | Address | [address] | | | [place] [address] | + + + | Home Phone [...] Team Providers + +------+ + | Care Radiation Protection Engineer Name | Role | Phone | + +------+ + | Meredith Sanchez | PCP | | + +------+ + Encounter Details +--------+ + + + + | Date | Type | Department | Care Team | Description | +--------+ + + + + | 02/22/ | Hospital | Pulmonary Function | Tech, Pfl Adult | | | 2019 | Encounter | Lab at [facility] [address] | [address] | | | | | [address] | [facility], | | | | | [place], | [place] [address] | | | | | [address] [place] [address], | | | | | | [place] [address] | | | | | | [phone] | | | +--------+ + + + [...] + + + +---------+ + + | carvediloL 25 mg | Take 2 tablets by | 120 | 3 | 02/23/20 | | | oral | mouth two times | tablet | | 20 | | | tabletIndications: | daily. Administer | | | | | | hypertension | with food. | | | | | | | Indications: high | | | | | | | blood pressure | | | | | + + + +---------+ + + | DAPSONE 100 mg | TAKE 1 TABLET BY | 30 | 0 | 01/30/20 | | | oral tablet | MOUTH ONCE DAILY, | tablet | | 20 | | | | PNEUMONIA PREVENTION | | | | | + + + +---------+ + + | escitalopram | Take 1 tablet by | 30 | 5 | 12/20/19 | | | oxalate 20 mg oral | mouth once daily. | tablet | | 20 | | | tabletIndications: | Indications: major | | | | | | major depressive | depressive disorder | | | | | | disorder | | | | | | + [...] + + + +---------+ + + | hydrocortisone 2.5 | Apply to affected | 453.6 g | 2 | 12/29/19 | | | % topical | area two times | | | 20 | | | ointmentIndications: | daily. Apply a thin | | | | | | skin | film to clean, dry | | | | | | fdlti-rfckfs-mhbm | skin and rub in | | | | | | disease | gently. Indications: | | | | | | | skin | | | | | | | zbmcl-sogsrx-sipg | | | | | | | disease | | | | | + + + +---------+ + + | losartan 25 mg | Take 1 tablet by | 30 | 3 | 02/02/20 | | | oral tablet | mouth once daily. | tablet | | 20 | | + + + +---------+ + + | magnesium oxide-mg | Take 2 tablets by | 120 | 3 | 12/29/19 | | | amino acid chelate | mouth two times | tablet | | 20 | | | 133 mg oral tablet | daily. | | | | | [...] + + + +---------+ + + | posaconazole DR | Take 4 tablets by | 120 | 3 | 12/29/19 | | | 100 mg oral | mouth once daily. | tablet | | 20 | | | tablet,delayed | Indications: | | | | | | release | prevention of fungal | | | | | | (DR/EC)Indications: | infection | | | | | | prevention of fungal | | | | | | | infection | | | | | | + + + +---------+ + + | predniSONE 10 mg | As of 01/26/20: | 90 | 3 | 01/26/20 | | | oral tablet | Decrease to 15mg | tablet | | 20 | | | | once //, 10 mg | | | | | | | every other day | | | | | + + + +---------+ + + | tacrolimus 0.5 mg | As of 02/13/20: | 90 | 3 | 02/13/20 | | | oral | Current dose is | capsule | | 20 | | | capsuleIndications: | 0.5mg once daily | | | | | | prevention of graft | except take nothing | | | | | | versus host | on Thu, Thu, Thu. On | | | | | | | days of your blood | | | | | | | draws, do not take | | | | | | | your morning dose | | | | | | | but bring it with | | | | | | | you to take after | | | | | | | your blood draw. | | | | | | | Indications: GvHD. | | | | | | | Indications: | | | | | | | prevention of graft | | | | | | | versus host | | | | | + + + +---------+ + + | valACYclovir 500 | Take 1 tablet by | 60 | 11 | // | | | mg oral tablet | [...] + | SPIROMETRY, PULM | Routin | 02/23/2020 | GVHD (graft versus | Results for this | | FUNCTION LAB | e | 9:33 AM | host disease) (HCC) | procedure are in the | | [...] + + + | PULMONARY | Site: [facility] and | | [facility] | | | INTERPRETAT | [facility] | | SPECIAL | | | ION | [address] | | DIAGNOSTICS | | | | [address],[place], [place], | | - | | | | [address]BX: [id number] | | PULMONARY | | | | Name: ANALY HOPPER | | FUNCTION | | | | ANNVisit Date: | | | | | | 02/23/2020 Second ID: | | | | | | [id number]: | | | | | | Danuta YaoAge: 54 | | | | | | : 1965 Sex: | | | | | | Female Race: | | | | | | CaucasianHeight: 157.20 | | | | | | Cms Weight: 65.40 | | | | | | Kgs BSA: 1.66Order | | | | | | IDs: [id number] | | | | | | Test(s): [...] + + + + + + | [id number]% | 1.03 | 2.44 L/sec | [facility] | | | PRE | | | SPECIAL | | | | | | DIAGNOSTICS | | | | | | - | | | | | | PULMONARY | | | | | | FUNCTION | | + + + + + + | [id number]% | 42 | % | [facility] | [...] [facility]FF [facility] | [address] | [place], [place] | | | DIAGNOSTICS - | [address] | [address] | | | PULMONARY FUNCTION | | | | + + + + + documented in this encounter Visit Diagnoses + + | Diagnosis | + + | 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
--- OUTSIDE RECORDS SUMMARY | ~2020-03-12 | XMS | Encounter Summary ---
Demographics + + + | Address | [address] | | | [place] [address] | + + + | Home Phone [...] Team Providers + +------+ + | Care Fiberglass Fabricator Name | Role | Phone | + +------+ + | Meredith Sanchez | PCP | | + +------+ + Encounter Details +--------+ + + + + | Date | Type | Department | Care Team | Description | +--------+ + + + + | 08/11/ | Pharmacy | Pharmacy @ [facility] | | | | 2020 | Visit | [address] | | | | | | [address] Mailcode: | | | | | | [facility] | | | | | | and Healing, | | | | | | [address] | | | | | | [place], [place] | | | | | | [address] | | | +--------+ + + + [...]
--- OUTSIDE RECORDS SUMMARY | ~2020-03-12 | XMS | Encounter Summary ---
Demographics + + + | Address | [address] | | | [place] [address] | + + + | Home Phone [...] Team Providers + +------+ + | Care Service Delivery Consultant Name | Role | Phone | + +------+ + | Meredith Sanchez | PCP | | + +------+ + Encounter Details +--------+ + + + + | Date | Type | Department | Care Team | Description | +--------+ + + + + | 04/18/ | Pharmacy | Outpatient Retail | | | | 2019 | Visit | [facility] | | | | | | [address] | | | | | | [address] [place], [place] | | | | | | [address] | | | | | | [phone] | | | +--------+ + + + [...]
--- OUTSIDE RECORDS SUMMARY | ~2020-03-12 | XMS | Encounter Summary ---
Demographics + + + | Address | [address] | | | [place] [address] | + + + | Home Phone [...] Team Providers + +------+ + | Care Superintendent Local Name | Role | Phone | + +------+ + | Meredith Sanchez | PCP | | + +------+ + Encounter Details +--------+ + + + + | Date | Type | Department | Care Team | Description | +--------+ + + + + | 06/28/ | Interactive Graphic Designer | [facility] | Sejal De La [facility]re | | | 2019 | | Clinics at S | N, DO [address] | | | | | [place] [address] | | | | | [place] for | [place], [place] | | | | | Health and Healing, | [address] | | | | | [address] | [phone] | | | | | [place], [place] | | | | | | [address] | | | | | | [phone] | | | +--------+ + + + [...]
--- OUTSIDE RECORDS SUMMARY | ~2020-03-12 | XMS | Encounter Summary ---
Demographics + + + | Address | [address] | | | [place] [address] | + + + | Home Phone [...] + + + | Author | [facility] | + + + | Organization | [facility] | + + + | Address | Unknown | + + + | Phone | Unavailable | + + + Support + + +---------+ + | Name | Relationship | Address | Phone | + + +---------+ + | Claudia Cota | ECON | Unknown | | + + +---------+ + Care Team Providers + +------+ + | Care Xray Tech Name | Role | Phone | + +------+ + | Meredith Sanchez | PCP | | + +------+ + Encounter Details +--------+ + + + + | Date | Type | Department | Care Team | Description | +--------+ + + + + | 12/03/ | Driver Trainer | [facility] | Sejal De La Torre | 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 | | Clinics at S | N, DO [address]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) | | | | [facility] [address] | (Primary Dx) | | | | [facility] | [place], [place] | | | | | Health and Healing, | [address] | | | | | [address] | [phone] | | | | | [place], [place] | | | | | | [address] | | | | | | [phone] | | | +--------+ + + + [...] | | + +------+--------+ + + | PATHOLOGY CONSULT - | Lab | Routin | MDS | Ordered: 12/03/2018 | | REVIEW OUTSIDE | | e | (myelodysplastic | | | SLIDES | | | syndrome) ([facility]) | | + +------+--------+ + + documented as of this encounter Procedures + +--------+ + + + | Procedure Name | Priori | Date/Time | Associated Diagnosis | Comments | | | ty | | | | + +--------+ + + + | FLT3 ITD, FFPE | Routin | 11/05/2018 | MDS | Results for this | | | e | 12:01 AM | (myelodysplastic | procedure are in the | | | | PDT | syndrome) ([facility]) | results section. | + +--------+ + + + | COMPREHENSIVE HEME | Routin | 11/05/2018 | MDS | Results for this | | PANEL SEQ, FFPE | e | 12:01 AM | (myelodysplastic | procedure are in the | | | | PDT | syndrome) ([facility]) | results section. | + +--------+ + + + | GENETRAILS | Routin | 11/05/2018 | MDS | Results for this | | COMPREHENSIVE HEME | e | 12:01 AM | (myelodysplastic | procedure are in the | | PANEL, FFPE | | PDT | syndrome) ([facility]) | results section. | + +--------+ + + + documented in this encounter Results FLT3 ITD, FFPE (11/05/2018 12:01 AM PDT) + + + + + + | Component | Value | Ref Range | Performed | Pathologist | | | | | At | Signature | + + + + + + | FLT3 ITD | Testing failed. | | [facility] | | | | | | DIAGNOSTIC | | | | | | | | | | | | LABORATORIE | | | | | | S | | + + + + + + | INTERPRETAT | The DNA from this FFPE | | [facility] | | | ION | bone marrow core biopsy | | DIAGNOSTIC | | | | was of insufficient | | | | | | quality and quantity. If | | LABORATORIE | | | | there is another | | S | | | | specimen available that | | | | | | is union contract representative of | | | | | | this disease, we would | | | | | | welcome the opportunity | | | | | | to examine it. Cyrus | | | | | | harsh histologic | | | | | | processing often renders | | | | | | bone marrow tissue | | | | | | unsuitable for molecular | | | | | | testing. | | | | + + + + + + | DISCLAIMER | This test was developed | | [facility] | | | | and its performance | | DIAGNOSTIC | | | | characteristics | | | | | | determined by the [facility] | | LABORATORIE | | | [...] | | | | | (CLIA). The [facility] | | | | | | Diagnostics | | | | | | Laboratories are fully | | | | | | licensed by the state of | | | | | | [place] under CLIA and | | | | | | are accredited by the | | | | | | [employer] | | | | | | Pathologists (CAP). | | | | | | Administrative Assistant Office Manager: | | | | | | Tayo Singletary, | | | | | | Isabela, Ph.D | | | | + + + + + + | SAMPLE | Bone Marrow, core biopsy | | [facility] | | | TESTED | ([employer], [id number]) | | DIAGNOSTIC | | | | | | | | | | | | LABORATORIE | | | | | | S | | + + + + + + + + | Specimen | + + | Slide-Block - | | Slide-Block | + + + + + + + | Performing | Address | City/State/Zipcode | Phone Number | | Organization | | | | + + + + + | [facility] | [address] | [place] [address] | | | DIAGNOSTIC | [address] | | | | LABORATORIES | | | | + + + + + COMPREHENSIVE HEME PANEL SEQ, FFPE (11/05/2018 12:01 AM PDT) + + + + + + | Component | Value | Ref Range | Performed | Pathologist | | | | | At | Signature | + + + + + + | COMPREHENSI | Testing failed. | | [facility] | | | VE HEME | | | DIAGNOSTIC | | | PANEL SEQ | | | | | | | | | LABORATORIE | | | | | | S | | + + + + + + | INTERPRETAT | The DNA from this FFPE | | [facility] | | | ION | bone marrow core biopsy | | DIAGNOSTIC | | | | was of insufficient | | | | | | quality and quantity for | | LABORATORIE | | | | successful | | S | | | | next-generation | | | | | | sequencing. If there is | | | | | | another specimen | | | | | | available that is | | | | | | union contract representative of this | | | | | | disease, we would | | | | | | welcome the opportunity | | | | | | to examine it. Cyrus | | | | | | harsh histologic | | | | | | processing often renders | | | | | | bone marrow tissue | | | | | | unsuitable for molecular | | | | | | testing. | | | | + + + + + + | DISCLAIMER | Reviewed and | | [facility] | | | | electronically signed by | | DIAGNOSTIC | | | | TOMER DUBON, | | | | | | ,12/22/2018 3:08 | | LABORATORIE | | | | PMReviewed and | | S | | | | electronically signed by | | | | | | ZURDO SIMMS, | | | | | | ,12/22/2018 3:28 PM | | | | + + + + + + | SAMPLE | Bone Marrow, core biopsy | | [facility] | | | TESTED | (Edwinarahul, [id number]) | | DIAGNOSTIC | | | | | | | | | | | | LABORATORIE | | | | | | S | | + + + + + + + + | Specimen | + + | Slide-Block - | | Slide-Block | + + + + + + + | Performing | Address | City/State/Zipcode | Phone Number | | Organization | | | | + + + + + | [facility] | [address] | [place] [address] | | | DIAGNOSTIC | [address] | | | | LABORATORIES | | | | + + + + + documented in this encounter Visit Diagnoses + + | Diagnosis | + + | MDS (myelodysplastic syndrome) (HCC) - Primary Myelodysplastic syndrome, unspecified | + + documented in this encounter"
--- OUTSIDE RECORDS SUMMARY | ~2020-03-12 | XMS | Encounter Summary ---
Demographics + + + | Address | [address] | | | [place] [address] | + + + | Home Phone [...] Team Providers + +------+ + | Care Hypoid Gear Tester Name | Role | Phone | + +------+ + | Meredith Sanchez | PCP | | + +------+ + Encounter Details +--------+ + + + + | Date | Type | Department | Care Team | Description | +--------+ + + + + | 07/28/ | Results/Int | Pulmonary Function | | Dyspnea on exertion | | 2019 | erpretation | Lab at [facility] [address] | | (Primary Dx) | | | | [address] | | | | | | [place] | | | | | | [place], [place] | | | | | | [address] | | | | | | [phone] | | | +--------+ + + + [...] + documented as of this encounter Progress Chuy Ceballos MD - 07/28/2019 1:35 PM PST Refer to PFT report. doc umented in this encounter Plan of Treatment Not on filedocumented as of this encounter Procedures + +--------+ + + + | Procedure Name | Priori | Date/Time | Associated Diagnosis | Comments | | | ty | | | | + +--------+ + + + | RI DIFFUSING | Routin | 07/29/2019 | Dyspnea on | | | CAPACITY | e | 2:31 PM | exertion | | | | | PST | | | + +--------+ + + + | RI PLETHYSMOGRAPHY | Routin | 07/29/2019 | Dyspnea on | | | FOR DETERM OF LUNG | e | 2:31 PM | exertion | | | VOLUMES | | PST | | | + +--------+ + + + | RI SPIROMETRY TEST | Routin | 07/29/2019 | Dyspnea on | | | | e | 2:31 PM | exertion | | | | | PST | | | + +--------+ + + [...] + | Diagnosis | + + | Dyspnea on exertion - Primary Other dyspnea and respiratory abnormality | + + documented in this encounter"
--- OUTSIDE RECORDS SUMMARY | ~2020-03-12 | XMS | Encounter Summary ---
Demographics + + + | Address | [address] | | | [place] [address] | + + + | Home Phone [...] Team Providers + +------+ + | Care Editor In Chief Newspaper Name | Role | Phone | + [...] | | | | | (HCC) | [place], [place] | Healing, | | | | | Procedures | [address] | [address] | | | | | [place] | Phone: | [place], [place] | | | | | OFFICE/OUTPT | [phone] | [address] | | | | | | Fax: | Phone: | | | | | VISIT,EST,LE | [phone] | [phone] | | | | | [place] | | Fax: | | | | | EST PATIENT | | [phone] | | | | | LEVEL V | | | +--------+--------+ + + + + Encounter Details +--------+ + + + + | Date | Type | Department | Care Team | Description | +--------+ + + + + | 07/01/ | Hospital | [facility] | Rn, Fast Track | | | 2020 | Encounter | Clinics at S | [address] | | | | | [facility] [address] | [place] [address] | | | | | [address] [facility] | | | | | | Health and Healing, | | | | | | [address] | | | | | | [place], [place] | | | | | | [address] | | | | | | [phone] | | | +--------+ + + + [...] documented as of this encounter Progress Notes Savanna Delcid RN - 07/01/2019 11:30 AM [facility] TRACK APPOINTMENT Assessment Patient ambulates into clinic, here for labs and a dressing change. She will return tomorr ow for infusion appointment as scheduled. The patient denies colds, flu, fever, infection, nausea, vomiting, constipation, edema, u rinary issues, shortness of breath and signs or symptoms of bleeding. She does endorse having increasing issues with diarrhea and notes taste alterations have im pacted her appetite. She reports a white coating on her tongue and states she will discuss with Dr De La Torre at her MD visit today. She feels that her skin rash "comes and goes" and she continues to use topicals. Groshong intact to left anterior chest wall [...] mL NS. Patient tolerated procedure without difficulty. [facility] Lab Draw: Groshong accessed per protocol. Good blood return noted. Appropriate waste discarded. Meghna portillo drawn and sent. Groshong pulse flushed with 20 mL NS. Patient scheduled for provider vi sit today with Dr De La Torre.. Line care provided, see Flowsheet for details. Patient d/c d ambulatory in stable conditi on. No future appointments scheduled. Savanna Delcid RN documented in this encoun ter Plan of Treatment Not on filedocumented as of this encounter Procedures + +--------+ + + + | Procedure Name | Priori | Date/Time | Associated Diagnosis | Comments | | | ty | | | | + +--------+ + + + | TACROLIMUS, WHOLE | Routin | 07/01/2019 | S/P cord blood | Results for this | | BLOOD | e | 11:51 AM | transplantation MDS | procedure are in the | | | | PST | (myelodysplastic | results section. | | | |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) | | + +--------+ + + + | [facility] - MAGNESIUM, | Routin | 07/01/2019 | S/P cord blood | Results for this | | PLASMA | e | 11:49 AM | transplantation MDS | procedure are in the | | | | PST | (myelodysplastic | results section. | | | | | syndrome) ([facility]) | | + +--------+ + + + | [facility] - PHOSPHORUS, | Routin | 07/01/2019 | S/P cord blood | Results for this | | PLASMA | e | 11:49 AM | transplantation MDS | procedure are in the | | | | PST | (myelodysplastic | results section. | | | | | syndrome) ([facility]) | | + +--------+ + + + | [facility] - LDH TOTAL, | Routin | 07/01/2019 | S/P cord blood | Results for this | | PLASMA | e | 11:49 AM | transplantation MDS | procedure are in the | | | | PST | (myelodysplastic | results section. | | | | | syndrome) ([facility]) | | + +--------+ + + + | CBC AND AUTO DIFF | Routin | 07/01/2019 | S/P cord blood | Results for this | | | e | 11:49 AM | transplantation MDS | procedure are in the | | | | PST | (myelodysplastic | results section. | | | | | syndrome) ([facility]) | | + +--------+ + + + | [facility] - COMPLETE | Routin | 07/01/2019 | S/P cord blood | Results for this | | METABOLIC SET | e | 11:49 AM | transplantation MDS | procedure are in the | | | | PST | (myelodysplastic | results section. | | | | | syndrome) ([facility]) | | + +--------+ + + + | [facility] CBC W | Routin | 07/01/2019 | S/P cord blood | Results for this | | DIFFERENTIAL | e | 11:49 AM | transplantation MDS | procedure are in the | | | | PST | (myelodysplastic | results section. | | | | | syndrome) ([facility]) | | + +--------+ + + + | CMV PCR | Routin | 07/01/2019 | S/P cord blood | Results for this | | QUANTITATION, PLASMA | e | 11:49 AM | transplantation MDS | procedure are in the | | | | PST | (myelodysplastic | results section. | | | |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) | | + +--------+ + + + documented in this encounter Results TACROLIMUS, WHOLE BLOOD (07/01/2019 11:51 AM PST) [...] + + + CBC AND AUTO DIFF (07/01/2019 11:49 AM PST) + + + + + + | Component | Value | Ref Range | Performed | Pathologist | | | | | At | Signature | + + + + + + | WHITE CELL | 7.33 | 3.50 - 10.80 | [facility] | | | COUNT | | K/cu mm | LABORATORY | | | | | | SERVICES, | | | | | | [facility] + | | | | | | [facility]ALING | | + + + + + + | RED CELL | 3.25 (L) | 4.00 - 5.20 | [facility] [...] + + + + | HEMATOCRIT | 29.6 (L) | 36.0 - 46.0 % | [facility] | | | | | | LABORATORY | | | | | | SERVICES, | | | | | | [facility] | [facility] + | | | | | | [facility]ALING | | + + + + + + | MCV | 91.1 | 80.0 - 100.0 fL | [facility] [...] + + + | RDW SD | 52.9 (H) | 35.1 - 46.3 fL | [facility] | | | | | | LABORATORY | | | | | | SERVICES, | | | | | | [facility] | [facility] | [facility] + | | | | | | HEALING | | + + + + + + | PLATELET | 132 (L)Comment: Few | 150 - 400 K/cu [...] + + + + | NEUTROPHIL | 64.9 | 50.0 - 70.0 % | [facility] | | | % | | | LABORATORY | | | | | | SERVICES, | | | | | | [facility] | | | | [facility] + | | | | | | HEALING | | + + + + + + | LYMPHOCYTE | 15.0 (L) | 18.0 - 42.0 % | [facility] | | | % | | | LABORATORY | | | | | | SERVICES, | | | | | | [facility] | | | | [facility] + | | | | | | HEALING | | + + + + + + | MONOCYTE % | 10.4 (H) | 3.5 - 9.0 % | [...] + + + + | IG% | 0.5 | 0.0 - 1.0 % | [facility] | | | | | | LABORATORY | | | | | | SERVICES, | | | | | | [facility] | | | | [facility] + | | | | | | HEALING | | + + + + + + | NEUTROPHIL | 4.76 | 1.80 - 7.70 | [facility] | | | # | | K/cu mm | LABORATORY | | | | | | SERVICES, | | | | | | [facility] | | | | [facility] + | | | | | | HEALING | | + + + + + + | NEUTROPHIL | 4.76Comment: Preliminary | 1.80 - 7.70 | [facility] [...] + + + + | LYMPHOCYTE | 1.10 | 1.00 - 4.80 | [facility] | [...] + + + | EOS # | 0.65 (H) | 0.00 - 0.50 | [facility] [...] LABORATORY | [address] | [place] [address] | | | SERVICES, [facility] | | | | | HEALTH [...] | | | LABORATORY | | | [facility] | | | SERVICES, | | | [...] equation recommended by the National | [facility] | | Kidney Disease Education Program. Estimated [...] + + + + + | [facility] | [address] | [place] [address] | | | SERVICES, [facility] | | | | | [...] | + + + + + | [facility] | [address] | [place] [address] | | | SERVICES, [facility] | | | | | [facility]ALTH [...] [facility] | [address] | [place] [address] | | | SERVICES, [facility] | [...] + + + + + | [facility] | [address] | [place] [address] | | | [facility] | | | | | HEALTH [...] 2 fold may not reflect true | [facility] | | biological changes and must [...] the [facility] | | | Molecular Diagnostic Center. It has not been cleared or approved by | | | the Food and Drug Administration. FDA approval is not required for | | | clinical use of this test, and therefore validation was done as | | | required under the requirements of the Clinical Laboratory Improvement | | | Act of 1988. The [facility] | | | Diagnostic Center is a fully licensed and/or accredited clinical | | | laboratory under CLIA, ARMANDO, and the [facility]. | | + + + + + + + + | Performing | Address | City/State/Zipcode | Phone Number | | Organization | | | | + + + + + | [facility] | [address] | [place] [address] | | | DIAGNOSTIC | [address] [...]
--- OUTSIDE RECORDS SUMMARY | ~2020-03-12 | XMS | Encounter Summary ---
Demographics + + + | Address | [address] | | | [place] [address] | + + + | Home Phone [...] Team Providers + +------+ + | Care Filter Washer Name | Role | Phone | + +------+ + | Meredith Sanchez | PCP | | + +------+ + Encounter Details +--------+ + + + + | Date | Type | Department | Care Team | Description | +--------+ + + + + | 12/21/ | Telephone | [facility] | Sejal De La Torre | | | 2019 | | Clinics at S | N, DO [address] | | | | | [facility] [address] | | | | | [place] [facility] | [place], [place] | | | | | Health and Healing, | [address] | | | | | [address] | [phone] | | | | | [place], [place] | | | | | | [address] | | | | | | [phone] | | | +--------+ + + + [...] - Sejal De La Torre DO - 12/22/2019 2:57 PM PDTReceived an update ca ll from Dr. Pires with new SAM Cr 1.4 noted last week. Renal US and urine studies were negative. Tacrolimus level 7. Nona was recently restarted on her triamterene/HCTZ a coupl e weeks ago and I suspect that the SAM is from that medication in addition to the tacrolimus . Discussed starting coreg 6.125 mg BID for BP control rather than the triamterene/HCTZ. Thi s medication can be titrated up without effect on the kidneys. Plan to repeat labs tomorrow and transition to new BP medication with follow-up checkin in 12/29/19. Patient verbalized und erstanding of plan of care. 3:0 2 PM PDTdocumented in this encounter Plan of Treatment Not on filedocumented as of this encounter Visit Diagnoses Not on filedocumented in this encounter"
--- OUTSIDE RECORDS SUMMARY | ~2020-03-12 | XMS | Encounter Summary ---
Demographics + + + | Address | [address] | | | [place] [address] | + + + | Home Phone [...] Providers + +------+ + | Care Cook Vacuum Kettle Name | Role | Phone | + +------+ + | Meredith Sanchez | PCP | | + +------+ + Encounter Details +--------+ + + + + | Date | Type | Department | Care Team | Description | +--------+ + + + + | 07/29/ | Pharmacy | Pharmacy @ [facility] | | | | 2019 | Visit | [address] | | | | | | [address] [address] Mailcode: | | | | | | [facility] | | | | | | and Healing, | | | | | | [address] | | | | | | [place], [place] | | | | | | [address] | | | +--------+ + + + [...]
--- OUTSIDE RECORDS SUMMARY | ~2020-03-12 | XMS | Encounter Summary ---
Demographics + + + | Address | [address] | | | [place] [address] | + + + | Home Phone [...] Providers + +------+ + | Care Machine Heddle Cleaner Name | Role | Phone | + +------+ + | Meredith Sanchez | PCP | | + +------+ + Reason for Visit + +--------+ + | Reason | Onset | Comments | | | Date | | + +--------+ + | Social Work Notes | 12/29/ | | | | 2018 | | + +--------+ + Encounter Details +--------+ + + + + | Date | Type | Department | Care Team | Description | +--------+ + + + + | 12/29/ | Telephone | [facility] | Work, Social | Social Work Notes | | 2019 | | Clinics at S | | | | | | [facility] [address] | | | | | | [facility] for | | | | | | Health and Healing, | | | | | | [address] | | | | | | [place], [place] | | | | | | [address] | | | | | | [phone] | | | +--------+ + + + [...] Notes Telephone Encounter - Elham Delcid - 12/29/2018 3:45 PM PDTSocial Work Specialist Brief I katey Identified needs: Lodging Interventions: Received a referral from Janee ANN to assist with lodging. We have discussed different options RV, Ronald Monique, ACS, hotels and private homes. I have explored financial resources patient does have Medicaid. Steve is [facility] patient will enroll [facility] [phone]. Benefits: $40/nt lodging $12/day for meals for patient and 1 caregiver $0.25/mile or medical transport provided I have recommended that the patient enroll with [employer] lodging program # They need five business days notice for any request. Putting in request does not guarantee they will secure reduced rate or free lodging. I always tell foks to have a back up plan. No dates at this time. Routing to the financial counselors to assist Elham [employer] [address] Mailcode: [address] [place], [place] [address] documented in this encounte r Plan of Treatment Not on filedocumented as of this encounter Visit Diagnoses Not on filedocumented in this encounter"
--- OUTSIDE RECORDS SUMMARY | ~2020-03-12 | XMS | Encounter Summary ---
Demographics + + + | Address | [address] | | | [place] [address] | + + + | Home Phone [...] Providers + +------+ + | Care Medical Records Technician Name | Role | Phone | + +------+ + | Meredith Sanchez | PCP | | + +------+ + Reason for Visit + +--------+ + | Reason | Onset | Comments | | | Date | | + +--------+ + | Medication | 06/16/ | IST: Tacrolimus | | Adjustment | 2019 | | + +--------+ + Encounter Details +--------+ + + + + | Date | Type | Department | Care Team | Description | +--------+ + + + + | 06/16/ | Telephone | [facility] | Sejal De La Torre | Medication | | 2019 | | Clinics at S | N, DO [address] | Adjustment (IST: | | | | [facility] [address] | [facility] [address] | Tacrolimus) | | | | [address] | [place], [place] | | | | | Health and Healing, | [address] | | | | | [address] | [phone] | | | | | [place], [place] | | | | | | [address] | | | | | | [phone] | | | +--------+ + + + [...] Telephone Encounter - Qasim Jensen MA - 06/16/2019 3:14 PM PST Result Follow-up CSA level: Lab Results Component Value Date FK506 6.3 06/16/2019 Nona's dose will remain the same per Sejal De La Torre DO. Nona and/or her caregiver have been contacted and were able to provide verbal read back o f these instructions. Spoke with Nona. Qasim Jensen CMA. elephone Encounter - Aniya Shankar RN - 06/16/2019 10:15 AM PSTInitial Assessment Nona Hopper's distribution systems serviceperson for today is patient, Nona Hopper, and her conta ct phone number for today 06/16 is: [phone]. Nona has been advised of when to [...] her last dose at 2100 (time) on 06/15/19 (date). documented in this e ncounter Plan of Treatment Not on filedocumented as of this encounter Visit Diagnoses Not on filedocumented in this encounter"
--- OUTSIDE RECORDS SUMMARY | ~2020-03-12 | XMS | Encounter Summary ---
Demographics + + + | Address | [address] | | | [place] [address] | + + + | Home Phone [...] Team Providers + +------+ + | Care Clinical Partner Name | Role | Phone | + +------+ + | Meredith Sanchez | PCP | | + +------+ + Reason for Visit + +--------+ + | Reason | Onset | Comments | | | Date | | + +--------+ + | Social Work Notes | 03/24/ | | | | 2018 | | + +--------+ + Encounter Details +--------+ + + + + | Date | Type | Department | Care Team | Description | +--------+ + + + + | 03/24/ | Telephone | [facility] | Work, Social | Social Work Notes | | 2019 | | Clinics at S | | | | | | [facility] [address] | | | | | | [address] [facility] for | | | | | | Health and Healing, | | | | | | Building [address] | | | | | | [place], [place] | | | | | | [address] | | | | | | [phone] | | | +--------+ + + + [...] Notes Telephone Encounter - Elham Delcid - 04/05/2019 12:57 PM PDTReceived a message from Christine monzon hse coordinator that lodging secured at [facility] 04/14 to 04/15. elephone Encounter - Elham Delcid - 03/24/2019 2:35 PM PDT04/14 to 04/15 wait list rpv and acs request 05/04 to 08/04 kitchen room secured P M PDTTelephone Encounter - Elham Delcid - 03/24/2019 2:16 PM PDTSocial Work Specialist Alberta trinidad Intervention Identified needs: Post Transplant Lodging Interventions: Received a message from Sean BUTLER that transplant is slightly changing. I have sent an email to [facility] adult placement to move the dates to 05/04 to 08/04 for the kitchen room . Awaiting response. Elham ANDERSON Culled Fruit PackerLitigation Support Analyst [address] Mailcode: [id number] Room [place], [place] [address] documented in this encounte r Plan of Treatment Not on filedocumented as of this encounter Visit Diagnoses Not on filedocumented in this encounter"
--- OUTSIDE RECORDS SUMMARY | ~2020-03-12 | XMS | Encounter Summary ---
Demographics + + + | Address | [address] | | | [place] [address] | + + + | Home Phone [...] Team Providers + +------+ + | Care Psychiatric Assistant Name | Role | Phone | + +------+ + | Meredith Sanchez | PCP | | + +------+ + Encounter Details +--------+--------+ + + + | Date | Type | Department | Care Team | Description | +--------+--------+ + + + | 06/19/ | Travel | | | | | [...]
--- OUTSIDE RECORDS SUMMARY | ~2020-03-12 | XMS | Encounter Summary ---
Demographics + + + | Address | [address] | | | [place] [address] | + + + | Home Phone [...] Team Providers + +------+ + | Care Assembler Name | Role | Phone | + +------+ + | Meredith Sanchez | PCP | | + +------+ + Encounter Details +--------+ + + + + | Date | Type | Department | Care Team | Description | +--------+ + + + + | 07/10/ | Pharmacy | Pharmacy @ [facility] | | | | 2020 | Visit | [address] | | | | | | [address] Mailcode: | | | | | | [facility] | | | | | | and Healing, | | | | | | [address] 2 | | | | | | [place], [place] | | | | | | [address] | | | +--------+ + + + [...]
--- OUTSIDE RECORDS SUMMARY | ~2020-03-12 | XMS | Encounter Summary ---
Demographics + + + | Address | [address] | | | [place] [address] | + + + | Home Phone [...] Providers + +------+ + | Care Senior Counsel Commercial Name | Role | Phone | + [...] | | | | | (HCC) | [place], [place] | Healing, | | | | | Procedures | [address] | [address] | | | | | [place] | Phone: | [place], [place] | | | | | OFFICE/OUTPT | [phone] | [address] | | | | | | Fax: | Phone: | | | | | VISIT,EST,LE | [phone] | [phone] | | | | | VL IV [place] | | Fax: | | | | | EST PATIENT | | [phone] | | | | | LEVEL V | | | +--------+--------+ + + + + Encounter Details +--------+ + + + + | Date | Type | Department | Care Team | Description | +--------+ + + + + | 07/28/ | Hospital | [facility] | | | | 2020 | Encounter | Clinics at S | | | | | | [facility] [address] | | | | | | [address] [facility] for | | | | | | Health and Healing, | | | | | | [address] | | | | | | [place], [place] | | | | | | [address] | | | | | | [phone] | | | +--------+ + + + [...] + + + | Blood Pressure | 172/86 | 07/28/2019 9:50 AM | | | | | PST | | + + + + + | Pulse | 72 | 07/28/2019 9:49 AM | | | | | PST | | + + + + + | Temperature | 36.7 C (98 F) | 07/28/2019 9:49 AM | | | | | PST | | + + + + + | Respiratory Rate | 12 | 07/28/2019 9:49 AM | | | | | PST | | + + + + + | Oxygen Saturation | 99% | 07/28/2019 9:49 AM | | | | | PST | | + + + + + | Inhaled Oxygen | - | - | | | Concentration | | | | + + + + + | Weight | 55.8 kg (123 lb) | 07/28/2019 9:49 AM | | | | | [...] capsule | | 20 | | | release(/MARY) | Administer 30 to 60 | | [...] documented as of this encounter Progress Notes Emily Ariza RN - 07/28/2019 9:20 AM PSTINFUSION NURSING NOTE Allergies: Nona is allergic to cefepime and sulfa (sulfonamide antibiotics). Narrative: Nona is a 53yo female with a history of MDS, followed by Dr. De La Torre, now s/p Flu/Cy/TBI c onditioned allo transplant (day 0 = 04/22/2019). Patient arrives ambulatory to clinic for a lab draw, MD visit and Bone marrow biopsy. Nursing Assessment: Fever/Chills/Infection: No SOB / Cough: No Dizziness/Lightheaded/Fatigue: No Signs/Symptoms Bleeding: No Neuropathy: No Mucositis: No Nausea/Vomiting: No Appetite: Good. Diarrhea/Constipation: No PO Fluid Intake: 2L daily. Rash/Skin sores/Edema: No Urinary Issues: No Pain: No Vascular Access: Groshong intact to left anterior chest wall [...] procedure without difficulty. Per Orders: Infusion Plan: 4gm IV Magnesium infused over 2 hours for a Mag level of 1.5. Supportive Plan: Pneumococcal and Influenza vaccines administered during MD visit. Chemo Plan: No orders until 10/09/2019. Biopsy Bone marrow biopsy performed by ELIECER Guillen. Patient premedicated with 1mg IV Lorazepa m. Site checked 15 minutes post procedure, bandaid clean, dry and intact. Provided instructi on regarding post bone marrow biopsy care. Instructed to keep dressing on for 24 hours, then remove dressing and assess site for redness, swelling or drainage and to call the triage nu rse if it develops any of these symptoms or develops worsening pain or discomfort at the bio psy site. Patient may leave dressing off if site scabbed over otherwise apply a band aid unt il scabbed over and reassess area every 24 hours until healed. Patient was reminded to call clinic with temp > 100.4, chills, s/s of bleeding or uncontrol led N/V/D/C. Patient d/c d ambulatory with caregiver. Emily Ariza RN documented in this encounter Plan of Treatment Not on filedocumented as of this encounter Visit Diagnoses + + | Diagnosis | + + | MDS (myelodysplastic syndrome) (HCC) - Primary Myelodysplastic syndrome, unspecified | + + documented in this encounter"
--- OUTSIDE RECORDS SUMMARY | ~2020-03-12 | XMS | Encounter Summary ---
Demographics + + + | Address | [address] | | | [place] [address] | + + + | Home Phone [...] Providers + +------+ + | Care Water Pump Assembler Name | Role | Phone | + +------+ + | Meredith Sanchez | PCP | | + +------+ + Reason for Visit + +--------+ + | Reason | Onset | Comments | | | Date | | + +--------+ + | Discussion | 02/14/ | | | | 2020 | | + +--------+ + Encounter Details +--------+ + + + + | Date | Type | Department | Care Team | Description | +--------+ + + + + | 02/14/ | Telephone | Dermatology | Bartolo Jarrell, | Discussion | | 2020 | | Medical at [facility] [address] | MD [address] | | | | | [address] | [place], [place] | | | | | for Health and | [address] | | | | | [facility], Building 1, | [phone] | | | | | 16th Floor | | | | | | [place], [place] | | | | | | [address] | | | | | | [phone] | | | +--------+ + + + [...] this encounter Miscellaneous Notes Telephone Encounter - Rowena Gayle - 02/15/2020 10:03 AM PDTPatient called in retur [facility] missed call from us. She is going to take a look at her bx results on [employer] and state d if Dr. Jarrell did need to speak with her she would be happy for a call back. Ph. [phone] ok to [facility] 10:0 5 AM PDTdocumented in this encounter Plan of Treatment Not on filedocumented as of this encounter Visit Diagnoses Not on filedocumented in this encounter"
--- OUTSIDE RECORDS SUMMARY | ~2020-03-12 | XMS | Encounter Summary ---
Demographics + + + | Address | [address] | | | [place] [address] | + + + | Home Phone [...] Team Providers + +------+ + | Care Justice Court Judge Name | Role | Phone | + +------+ + | Meredith Sanchez | PCP | | + +------+ + Encounter Details +--------+ + + + + | Date | Type | Department | Care Team | Description | +--------+ + + + + | 05/18/ | Qc Manager | [facility] | Maegan Mustafa, | | | 2019 | | Clinics at S | OFFICE BOOKKEEPER [address] [facility] | | | | | [facility] [address] | | | | | [address] [place] for | [place], [place] | | | | | Health and Healing, | [address] | | | | | [address] | [phone] | | | | | [place], [place] | | | | | | [address] | | | | | | [phone] | | | +--------+ + + + [...]
--- OUTSIDE RECORDS SUMMARY | ~2020-03-12 | XMS | Encounter Summary ---
Demographics + + + | Address | [address] | | | [place] [address] | + + + | Home Phone [...] Team Providers + +------+ + | Care Principal Statistical Scientist Name | Role | Phone | + +------+ + | Meredith Sanchez | PCP | | + +------+ + Reason for Visit + +--------+ + | Reason | Onset | Comments | | | Date | | + +--------+ + | Transplant | 03/21/ | LIT HLA-Recipient Verification | | | 2018 | | + +--------+ + Encounter Details +--------+ + + + + | Date | Type | Department | Care Team | Description | +--------+ + + + + | 03/21/ | Documentati | Kidney Transplant | Herve Parr, | Transplant (LIT | | 2019 | on | at [facility] [address] | MD [address] | HLA-Recipient | | | | [address] | [facility] [address] | Verification) | | | | Physician's | [place], [place] | | | | | [place], 3rd floor | [address] | | | | | [place], [place] | [phone] | | | | | [address] | | | | | | [phone] | | | +--------+ + + + [...]
--- OUTSIDE RECORDS SUMMARY | ~2020-03-12 | XMS | Encounter Summary ---
Demographics + + + | Address | [address] | | | [place] [address] | + + + | Home Phone [...] Team Providers + +------+ + | Care Technician Biological Health Name | Role | Phone | + +------+ + | Meredith Sanchez | PCP | | + +------+ + Reason for Visit + +--------+ + | Reason | Onset | Comments | | | Date | | + +--------+ + | Medication | 06/21/ | [place] | | Adjustment | 2018 | | + +--------+ + Encounter Details +--------+ + + + + | Date | Type | Department | Care Team | Description | +--------+ + + + + | 06/21/ | Telephone | [facility] | Sejal De La Torre | Medication | | 2019 | | Clinics at S | N, DO [address] | Adjustment ([place]) | | | | [facility] [address] | [address] [facility] | | | | | [address] [facility] for | [place], [place] | | | | | Health and Healing, | [address] | | | | | [address] | [phone] | | | | | [place], [place] | | | | | | [address] | | | | | | [phone] | | | +--------+ + + + [...] Telephone Encounter - Tayo Osborne MA - 06/21/2019 5:37 PM PSTFormatting of this no te might be different from the original. Result Follow-up CSA level: Lab Results Component Value Date FK506 9.0 06/21/2019 Nona's dose will remain the same per Sukhi Millan MD, covering for Sejal De La Torre DO. Patient and/or their caregiver verified they are taking 1 mg every morning and 0.5 mg every evening. elephone Tisha Bella RN - 06/21/2019 12:07 PM PSTInitial Assessment Nona Hopper's contact lens polisher for today is patient, Nona Hopper, and her conta ct phone number for today 06/21 is: [phone]. Nona has been advised of when to [...] her last dose at 2130 (time) on 06/20/19 (date). documented in this encounter Plan of Treatment Not on filedocumented as of this encounter Visit Diagnoses Not on filedocumented in this encounter"
--- OUTSIDE RECORDS SUMMARY | ~2020-03-12 | XMS | Encounter Summary ---
Demographics + + + | Address | [address] | | | [place] [address] | + + + | Home Phone [...] Team Providers + +------+ + | Care Detonator Assembler Name | Role | Phone | + +------+ + | Meredith Sanchez | PCP | | + +------+ + Encounter Details +--------+ + + + + | Date | Type | Department | Care Team | Description | +--------+ + + + + | 05/20/ | Electronic Musical Instrument Repairer | [facility] | Sejal De La Torre | | | 2019 | | Clinics at S | N, DO [address] | | | | | [facility] [address] | | | | | [address] [place] for | [place], [place] | | | | | Health and Healing, | [address] | | | | | [address] | [phone] | | | | | [place], [place] | | | | | | [address] | | | | | | [phone] | | | +--------+ + + + [...]
--- OUTSIDE RECORDS SUMMARY | ~2020-03-12 | XMS | Encounter Summary ---
Demographics + + + | Address | [address] | | | [place] [address] | + + + | Home Phone [...] Team Providers + +------+ + | Care Electric Gas Appliances Demonstrator Name | Role | Phone | + +------+ + | Meredith Sanchez | PCP | | + +------+ + Encounter Details +--------+ + + + + | Date | Type | Department | Care Team | Description | +--------+ + + + + | 08/22/ | Pharmacy | Specialty Pharmacy | | | | 2019 | Visit | Services [address] | | | | | | [address] | | | | | | [place], [place] | | | | | | [address] | | | | | | [phone] | | | +--------+ + + + [...]
--- OUTSIDE RECORDS SUMMARY | ~2020-03-12 | XMS | Encounter Summary ---
Demographics + + + | Address | [address] | | | [place] [address] | + + + | Home Phone [...] Team Providers + +------+ + | Care Specialty Sales Consultant Name | Role | Phone | + +------+ + | Meredith Sanchez | PCP | | + +------+ + Reason for Visit + + + | Reason | Comments | + + + | Intravenous infusion | | + + + | Dressing change | | + + + Other (Routine) +--------+--------+ + + + + | Status | Reason | Specialty | Diagnoses / | Referred By | Referred To | | | | | Procedures | Contact | Contact | +--------+--------+ + + + + | Closed | | Hematology | Diagnoses | Wil, | Ch Faculty | | | | 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 | Sejal Abdiel, | [facility] [address] | | | | | (myelodyspla | DO [address] | | | | | stic | [address] | Center for | | | | | syndrome) | [facility] | Health and | | | | | (HCC) | [place], [place] | Healing, | | | | | Procedures | [address] | [address] | | | | | [place] | Phone: | [place], [place] | | | | | OFFICE/OUTPT | [phone] | [address] | | | | | | Fax: | Phone: | | | | | VISIT,EST,LE | [phone] | [phone] | | | | | VL IV [place] | | Fax: | | | | | EST PATIENT | | [phone] | | | | | LEVEL V | | | +--------+--------+ + + + + Encounter Details +--------+ + + + + | Date | Type | Department | Care Team | Description | +--------+ + + + + | 06/24/ | Hospital | [facility] | | | | 2019 | Encounter | Clinics at S | | | | | | [facility] [address] | | | | | | [address] [facility] for | | | | | | Health and Healing, | | | | | | [address] | | | | | | [place], [place] | | | | | | [address] | | | | | | [phone] | | | +--------+ + + + [...] + documented as of this encounter Progress Carmen Burton RN - 06/24/2019 9:30 AM PSTAssessment Patient arrives to clinic walking independently. Patient states she is feeling tired today . 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 Patient has has no new complaints. Fever/Chills/Infection: No SOB / Cough: No Fatigue/Dizziness/Lightheaded: Yes - continued fatigue Signs/Symptoms Bleeding: No Neuropathy: No Mucositis: No Nausea/Vomiting: Yes - on and off Appetite: Poor. Diarrhea/Constipation: Yes - pt states she is taking imodium for diarrhea PO Fluid Intake: <2L/day; 1L NS given in infusion. Urinary Issues: No Rash/Skin/Edema: No Pain: No Lab Labs drawn by starter RN. Good blood return noted. Immunosuppressant Patient reports holding their dose of tacrolimus today. They report taking 1mg AM and 0.5mg pm. This matches the medication list. Confirmed [...] orders for a m agnesium level of 1.1. For infusion details, see AUG. Transfusion/Infusion 1L NS infused over 2 hours per infusion plan. Discharge Line care provided, see Flowsheet for details. Patient was instructed to check out at the f ront desk prior to leaving the clinic. Patient d/c d ambulatory in stable condition. Next appointment scheduled 06/28/19 at 3:00 pm. Carmen Tripathi RN documented in this e ncounter Plan [...] in water IV | New Bag | 06/24/20 | 4 g | | | | (RTU) 4 g 4 g, intravenous, | | 19 9:17 | | | | | ONCE, 1 dose, Thu06/24/19 at | | AM PST | | | | | 0915 | | | | | | + +---------+ +------+------+------+ +---+---+ | | | +---+---+ + +---------+ +-----+---+---+ | magnesium sulfate in water IV | New Bag | 06/24/20 | 4 g | | | | (RTU) 4 g 4 g, intravenous, | | 19 11:07 | | | | | ONCE, 1 dose, Thu06/24/19 at | | AM PST | | | | | 0915 | | | | | | + +---------+ +-----+---+---+ +---+---+ | | | +---+---+ + +---------+ + +---+---+ | sodium chloride (NS) 0.9 % | New Bag | 06/24/20 | 1,000 mL | | | | bolus 1,000 mL 1,000 mL, | | 19 9:22 | | | | | intravenous, NEEDED, Starting | | AM PST | | | | | 06/24/19 at 0929, Until Fri | | | | | | | 06/24/19 at 1953, decreased po | | | | | | | intake, dizziness | | | | | | + +---------+ + +---+---+ +---+---+ | | | +---+---+ documented in this encounter"
--- OUTSIDE RECORDS SUMMARY | ~2020-03-12 | XMS | Encounter Summary ---
Demographics + + + | Address | [address] | | | [place] [address] | + + + | Home Phone [...] Team Providers + +------+ + | Care Virtual Reality Specialist Name | Role | Phone | + +------+ + | Meredith Sanchez | PCP | | + +------+ + Encounter Details +--------+--------+ + + + | Date | Type | Department | Care Team | Description | +--------+--------+ + + + | 03/12/ | Travel | | | | | [...]
--- OUTSIDE RECORDS SUMMARY | ~2020-03-12 | XMS | Encounter Summary ---
Demographics + + + | Address | [address] | | | [place] [address] | + + + | Home Phone [...] Team Providers + +------+ + | Care Core Dipper Name | Role | Phone | + +------+ + | Meredith Sanchez | PCP | | + +------+ + Reason for Visit + + + | Reason | Comments | + + + | Refill Request | | + + + Encounter Details +--------+--------+ + + + | Date | Type | Department | Care Team | Description | +--------+--------+ + + + | 01/27/ | Refill | [facility] | Sam Baron FNP | Refill Request | | 2020 | | Clinics at S | [address] | | | | | [place] [address] [place], | | | | | [address] [facility] | [place] [address] | | | | | Health and Healing, | [phone] | | | | | [address] | | | | | | [place], [place] | | | | | | [address] | | | | | | [phone] | | | +--------+--------+ + + + [...] Telephone Encounter - Micheal Ji MA - 01/30/2020 11:16 AM PDTFormatting of this note migh t be different from the original. Last appointment with Nathan De La Torre was on 01/26/2020. Next appointment with Nathan De La Torre is scheduled on 02/02/2020. Last LIP progress note reviewed. Is there documentation to indicate that medication being r equested has been changed or discontinued? No Allergy list reviewed--Is the medication being requested on the patient's current allergy l ist? No Previous Prescription Details copied below: Date and Time Department Ordering/Authorizing 08/05/2019 10:08 AM [facility] ELIECER Guillen Outpatient Medication Detail Disp Refills dapsone 100 mg oral tablet 30 tablet 5 Sig: Take 1 tablet by mouth once daily. Indications: pneumonia prevention Sent to pharmacy as: dapsone 100 mg tablet Class: eRx Route: oral Order: [id number] E-Prescribing Status: Receipt confirmed by pharmacy (08/05/2019 10:08 AM PST) Per [facility] policy, routing encounter to [facility] for review and approval. documented in this encoun ter Plan of Treatment Not on filedocumented as of this encounter Visit Diagnoses Not on filedocumented in this encounter"
--- OUTSIDE RECORDS SUMMARY | ~2020-03-12 | XMS | Clinical Summary ---
Demographics + + + | Address | [address] | | | [place] [address] | + + + | Home Phone [...] Author + + + | Author | [facility] | + + + | Organization | [facility] | + + + | Address | Unknown | + + + | Phone | Unavailable | + + + Support + + +---------+ + | Name | Relationship | Address | Phone | + + +---------+ + | Claudia Cota | ECON | Unknown | | + + +---------+ + Care Team Providers + +------+ + | Care Stone Breaker Name | Role | Phone | + +------+ + | Meredith Sanchez | PCP | | + +------+ + Source Comments JEFF is fully live on both [facility] and [facility] & Replaced by [facility] Allergies + + + + + + | Active Allergy | Reactions | Severity | Noted | Comments | | | | | Date | | + + + + + + | Cefepime | Rash | | 05/09/20 | | | | | | 19 | | + + + + + + | Sulfa (Sulfonamide | Hives | | 12/03/19 | | | Antibiotics) | | | 19 | | + + + + + + Medications + + + +---------+------+------+-------+ | Medication | Sig | Dispensed | Refills | Star | End | Statu | | | | | | t | Date | s | | | | | | Date | | | + + + +---------+------+------+-------+ | valACYclovir 500 | Take 1 tablet by | 60 | 11 | 11/2 | | Activ | | mg oral tablet | mouth two times | tablet | | 0/20 | | e | | | daily. | | | 19 | | | + + + +---------+------+------+-------+ | omeprazole 40 mg | Take 1 capsule by | 21 | 3 | 01/3 | | Activ | | oral capsule,delayed | mouth once daily. | capsule | | 0/20 | | e | | release(DR/EC) | Administer 30 to 60 | | | 20 | | | | | minutes before meals | | | | | | + + + +---------+------+------+-------+ | guaiFENesin LA 600 | Take 1 tablet by | 30 | 1 | 04/0 | | Activ | | mg oral tablet | mouth two times | tablet | | 08/18 | | e | | extended release | daily. | | | 20 | | | | 12hr | | | | | | | + + + +---------+------+------+-------+ +---+ + | | Additional | | | InformationPatient | | | not taking. Reported | | | on 02/02/2020 10:42 | | | AM | +---+ + + + + +---+------+---+-------+ | escitalopram | Take 1 tablet by | 30 | 5 | 06/2 | | Activ | | oxalate 20 mg oral | mouth once daily. | tablet | | 09/15 | | e | | tabletIndications: | Indications: major | | | 20 | | | | major depressive | depressive disorder | | | | | | | disorder | | | | | | | + + + +---+------+---+-------+ | hydrocortisone 2.5 | Apply to affected | 453.6 g | 2 | 07/0 | | Activ | | % topical | area two times | | | 2/20 | | e | | ointmentIndications: | daily. Apply a thin | | | 20 | | | | skin | film to clean, dry | | | | | | | illhc-sloqrs-pvrb | skin and rub in | | | | | | | disease | gently. Indications: | | | | | | | | skin | | | | | | | | wwyuk-fqswru-mlxn | | | | | | | | disease | | | | | | + + + +---+------+---+-------+ | magnesium oxide-mg | Take 2 tablets by | 120 | 3 | 07/0 | | Activ | | amino acid chelate | mouth two times | tablet | | 2/20 | | e | | 133 mg oral tablet | daily. | | | 20 | | | + + + +---+------+---+-------+ | posaconazole DR | Take 4 tablets by | 120 | 3 | 07/0 | | Activ | | 100 mg oral | mouth once daily. | tablet | | 2/20 | | e | | tablet,delayed | Indications: | | | 20 | | | | release | prevention of fungal | | | | | | | (DR/EC)Indications: | infection | | | | | | | prevention of fungal | | | | | | | | infection | | | | | | | + + + +---+------+---+-------+ | predniSONE 10 mg | As of 01/26/20: | 90 | 3 | 12/29 | | Activ | | oral tablet | Decrease to 15mg | tablet | | 020 | | e | | | once //, 10 mg | | | 20 | | | | | every other day | | | | | | + + + +---+------+---+-------+ | DAPSONE 100 mg | TAKE 1 TABLET BY | 30 | 0 | 08/0 | | Activ | | oral tablet | MOUTH ONCE DAILY, | tablet | | 09/15 | | e | | | PNEUMONIA PREVENTION | | | 20 | | | + + + +---+------+---+-------+ | losartan 25 mg | Take 1 tablet by | 30 | 3 | 08/0 | | Activ | | oral tablet | mouth once daily. | tablet | | /20 | | e | | | | | | 20 | | | + + + +---+------+---+-------+ | tacrolimus 0.5 mg | As of 02/13/20: | 90 | 3 | 01/27 | | Activ | | oral | Current dose is | capsule | | 01/15 | | e | | capsuleIndications: | 0.5mg once daily | | | 20 | | | | prevention of graft | except take nothing | | | | | | | versus host | on Thu, Cheryl, Sat. On | | | | | | [...] versus host | | | | | | + + + +---+------+---+-------+ | carvediloL 25 mg | Take 2 tablets by | 120 | 3 | 01/28 | | Activ | | oral | mouth two times | tablet | | 01/15 | | e | | tabletIndications: | daily. Administer | | | 20 | | | | hypertension | with food. | | | | | | | | Indications: high | | | | | | | | blood pressure | | | | | | + + + +---+------+---+-------+ | MG-PLUS 133 mg | Take 2 tablets by | 180 | 5 | 09/0 | | Activ | | oral tablet | mouth three times | tablet | | 1/20 | | e | | | daily. | | | 20 | | | + + + +---+------+---+-------+ | fluticasone | Inhale 2 puffs by | 1 | 5 | 09/0 | | Activ | | propionate (FLOVENT | mouth two times | Inhaler | | 3/20 | | e | | HFA) 220 | daily. Indications: | | | 20 | | | | mcg/actuation | controller | | | | | | | inhalation HFA | medication for | | | | | | | aerosol | asthma | | | | | | | inhalerIndications: | | | | | | | | maintenance therapy | | | | | | | | for asthma | | | | | | | + + + +---+------+---+-------+ | albuterol 90 | Inhale 1-2 puffs by | 1 | 5 | 09/0 | | Activ | | mcg/actuation | mouth every six | Inhaler | | 3/20 | | e | | inhalation HFA | hours as needed for | | | 20 | | | | aerosol | dyspnea/SOB. | | | | | | | inhalerIndications: | Indications: | | | | | | | bronchospasm | bronchospasm | | | | | | | prevention | prevention | | | | | | + + + +---+------+---+-------+ | furosemide 20 mg | Take 1 tablet by | 3 | 0 | 09/0 | | Activ | | oral | mouth once daily. | tablet | | 3/20 | | e | | tabletIndications: | Indications: visible | | | 20 | | | | edema | water retention | | | | | | + + + +---+------+---+-------+ Active Problems + + + | Problem | Noted Date | + + + | S/P cord blood transplantation | 07/09/2019 | + + + | GVHD (graft versus host disease) | 07/09/2019 | + + + | Skin rash | 07/09/2019 | + + + | Anemia | 07/09/2019 | + + + | Lung infiltrate on CT | 07/09/2019 | + + + | Diarrhea, unspecified type | 07/07/2019 | + + + | Immunocompromised state due to drug therapy | 04/20/2019 | + + + | Acute deep vein thrombosis (DVT) of both upper extremities | 01/17/2019 | + + + + + | Overview: Developed while hospitalized for shingles and had | | PICC in | + + + + + | MDS (myelodysplastic syndrome) | 11/30/2018 | + + + Resolved Problems + + + + | Problem | Noted | Resolved | | | Date | Date | + + + + | Hypoalbuminemia due to protein-calorie malnutrition | 07/09/19 | | | | 20 | 0 | + + + + | Hyperglycemia | 07/09/19 | | | | 20 | 0 | + + + + | Hypokalemia | 07/09/19 | | | | 20 | 0 | + + + + | Generalized abdominal pain | 07/07/19 | | | | 20 | 0 | + + + + | Pancytopenia | 04/20/20 | | | | 19 | 0 | + + + + | Stem cell transplant candidate | 04/15/20 | | | | 19 | 0 | + + + + | Herpes zoster with complication | 01/17/20 | | | | 19 | 9 | + + + + Encounters +--------+ + + + + | Date | Type | Specialty | Care Team | Description | +--------+ + + + + | 03/12/ | Telephone | Hematology | Sejal De La Torre | Symptom Management | | 2019 | | Malignancy | N, DO | (leg and feet | | | | | | swelling once again) | +--------+ + + + + | 03/01/ | Senior Bookkeeper | Hematology | Sejal De La Torre | GVHD (graft versus | | 2019 | | Malignancy | N, DO | host disease) (HCC) | | | | | | (Primary Dx) | +--------+ + + + + | 03/01/ | Telephone | Hematology | Cathy Cornelius | | | 2020 | | Malignancy | M, HYDRAULIC TECHNICIAN | | +--------+ + + + + | 03/01/ | Telephone | Hematology | Sejal De La Torre | Other (hard time | | 2020 | | Malignancy | N, DO | breathing with | | | | | | walking around ); | | | | | | Wheezing (when | | | | | | taking stairs); | | | | | | Weight gain (up 4 | | | | | | lbs over week); | | | | | | Edema (bilateral | | | | | | ankles and feet); | | [...] worn) | +--------+ + + + + | 02/27/ | Refill | Hematology | Sejal De La Torre | Refill Request | | 2019 | | Malignancy | N, DO | (MG-PLUS) | +--------+ + + + + | 02/23/ | Documentati | Hematology | Work, Social | | | 2019 | on | Malignancy | | | +--------+ + + + + | 02/22/ | Office | Hematology | Cathy Cornelius | GVHD (graft versus | | 2019 | Visit | Malignancy | M, HYDRAULIC TECHNICIAN | host disease) (HCC) | | | | | | (Primary Dx) | +--------+ + + + + | 02/22/ | Lab | Phlebotomy | | S/P cord blood | | 2019 | | | | transplantation; MDS | | | | |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|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) | +--------+ + + + + | 02/22/ | Results/Int | Pulmonary Disease | | Dyspnea on exertion | | 2019 | erpretation | | | (Primary Dx) | +--------+ + + + + | 02/22/ | Hospital | Pulmonary Disease | Tech, Pfl Adult | | | 2019 | Encounter | | | | +--------+ + + + + | 02/22/ | Telephone | Hematology | Cathy Cornelius | Medication | | 2019 | | Malignancy | M, HYDRAULIC TECHNICIAN | Adjustment (IST | | | | | | [place]) | +--------+ + + + + | 02/22/ | Travel | | | | | 2019 | | | | | +--------+ + + + + | 02/21/ | Senior Bookkeeper | Hematology | Sejal De La Torre | | | 2019 | | Malignancy | N, DO | | +--------+ + + + + | 02/21/ | Telephone | Hematology | Sejal De La Torre | Covid19 Screening | | 2019 | | Malignancy | N, DO | | +--------+ + + + + | 02/19/ | Telephone | Hematology | Sejal De La Torre | Medication Questions | | 2019 | | Malignancy | N, DO | | +--------+ + + + + | 02/15/ | Telephone | Hematology | Sejal De La Torre | Medication Questions | | 2020 | | Malignancy | N, DO | (medication | | | | | | asstance form to the | | | | | | doctor) | +--------+ + + + + | 02/14/ | Documentati | Hematology | Work, Social | | | 2019 | on | Malignancy | | | +--------+ + + + + | 02/14/ | Telephone | Dermatology | Bartolo Jarrell, | Discussion | | 2019 | | | MD | | +--------+ + + + + | 02/12/ | Lab | Phlebotomy | | S/P cord blood | | 2019 | | | | transplantation; MDS | | | | |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| | syndrome) ([facility]); | | | | | | GVHD (graft versus | | | | | | host disease) ([facility]) | +--------+ + + + + | 02/12/ | Office | Dermatology | Bartolo Jarrell, | Rash and other | | 2020 | Visit | | MD | nonspecific skin | | | | | | eruption (Primary | | | | | | Dx); | | | | | | Yyofd-guvfhk-ynho | | | | | | disease (HCC) | +--------+ + + + + | 02/12/ | Senior Bookkeeper | Hematology | Sejal De La Torre | | 2019 | | Malignancy | Abdiel, DO | | +--------+ + + + + | 02/12/ | Telephone | Hematology | Sejal De La Torre | Medication Questions | | 2019 | | Malignancy | N, DO | (Losartan question) | +--------+ + + + + | 02/12/ | Telephone | Hematology | Sejal De La Torre | Medication | | 2019 | | Malignancy | N, DO | Adjustment (IST | | | | | | [place]) | +--------+ + + + + | 02/12/ | Travel | | | | | 2020 | | | | | +--------+ + + + + | 02/08/ | MyChart | Hematology | | RE:[facility] | | 2020 | Encounter | Malignancy | | Ophthalmology | +--------+ + + + + | 02/08/ | Telephone | Hematology | Sejal De La Torre | Other (question on | | 2019 | | Malignancy | N, DO | referral to | | | | | | ophthalmology ) | +--------+ + + + + | 02/01/ | Office | Hematology | Sejal De La Torre | 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, 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 | | | | | | (HCC) (Primary Dx); | | | | | | Fatigue, | | | | | | unspecified type; | | | | | | S/P cord blood | | | | | | transplantation | +--------+ + + + + | 02/01/ | Hospital | Hematology & | | | | 2019 | Encounter | Oncology | | | +--------+ + + + + | 02/01/ | Travel | | | | | 2020 | | | | | +--------+ + + + + | 01/31/ | Telephone | Hematology | Sejal De La Torre | Tamyid19 Screening | | 2020 | | Malignancy | N, DO | | +--------+ + + + + | 01/27/ | Refill | Hematology | Sam Baron FNP | Refill Request | | 2020 | | Malignancy | | | +--------+ + + + + | 01/25/ | Telephone-S | Hematology | Sejal De La Torre | | | 2019 | cheduled | Malignancy | N, DO | | +--------+ + + + + | 01/11/ | Telephone-S | Hematology | Sejal De La Torre | | | 2019 | cheduled | Malignancy | N, DO | | +--------+ + + + + | 01/11/ | MyChart | Hematology | Sejla De La Torre | RE: Picture of eye | | 2019 | Encounter | Malignancy | N, DO | | +--------+ + + + + | 12/28/ | Telephone-S | Hematology | Cathy Cornelius | GVHD - | 2019 | cheduled | Malignancy | M, HYDRAULIC TECHNICIAN | Xgqgn-grfoys-svpm | | | | | | disease | +--------+ + + + + | 12/21/ | Telephone | Hematology | Sejal De L aTorre | | | 2020 | | Malignancy | N, DO | | +--------+ + + + + | 12/21/ | Senior Bookkeeper | Hematology | Sejal De La Torre | | | 2020 | | Malignancy | N, DO | | +--------+ + + + + | 12/19/ | Refill | Hematology | Sejal De La Torre | Refill Request | | 2019 | | Malignancy | N, DO | (escitalopram ) | +--------+ + + + + from Last 3 Months Immunizations + + + + | Name | Administration Dates | Next Due | + + + + | Influenza, | 07/28/2019 | | | injectable, | | | | quadrivalent, | | | | preservative free | | | | (IIV4) | | | + + + + | PCV13 | 02/02/2020, 07/28/2019 | | + + + + Family History + + +------+ + | Medical History | Relation | Name | Comments | + + +------+ + | Brain cancer | Aunt | | | + + +------+ + | Brain cancer | Brother | | | + + +------+ + | Alcohol abuse | Brother | | | + + +------+ + | Alcohol abuse | Father | | | + + +------+ + | Liver Disease | Father | | | + + +------+ + | Melanoma | Father | | | + + +------+ + | Heart Attack | Mother | | | + + +------+ + | Dementia | Sister | | | + + +------+ + | Diabetes | Sister | | | + + +------+ + | Stroke | Sister | | | + + +------+ + + +------+ + + | Relation | Name | Status | Comments | + +------+ + + | Aunt | | | | + +------+ + + | Brother | | | | + +------+ + + | Brother | | Alive | | + +------+ + + | Father | | | | + +------+ + + | Mother | | | | + +------+ + + | Sister | | Alive | | + +------+ + + Social History + + + [...] | | | + + + + Last Filed Vital Signs + + + [...] + + + + | Height | 156.8 cm (5' 1.73") | 07/08/2019 4:32 PM | | | | | PST | | + + + + + | Body Mass Index | 26.9 | 07/08/2019 4:32 PM | | | | | PST | | + + + + + Plan of Treatment + + + + + | Health Maintenance | Due Date | Last | Comments | | | | Done | | + + + + + | Influenza (Flu) | | 07/28/19 | | | vaccination (#1) | 0 | 20 | | + + + + + | Pneumococcal | | 02/02/20 | | | vaccination (2 of 3 | 0 | 20, | | | - PPSV23) | | 07/28/19 | | | | | 20 | | + + + + + Procedures + +--------+ + + + | Procedure Name | Priori | Date/Time | Associated Diagnosis | Comments | | | ty | | | | + +--------+ + + + | MA DIFFUSING | Routin | 02/25/2020 | Dyspnea on | | | CAPACITY | e | 8:42 AM | exertion | | | | | PDT | | | + +--------+ + + + | MA SPIROMETRY TEST | Routin | 02/25/2020 | Dyspnea on | | | | e | 8:42 AM | exertion | | | | | PDT | | | + +--------+ + + + | CHIMERISM SORTED | Routin | 02/23/2020 | Hx of allogeneic | Results for this | | CELLS, DNA, BLOOD | e | 10:24 AM | stem cell transplant | procedure are in the | | ([facility]) | | PDT | ([facility]) | results section. | + +--------+ + + + | CHIMERISM SORTED | Routin | 02/23/2020 | Hx of allogeneic | Results for this | | CELLS, DNA, BLOOD | e | 10:24 AM | stem cell transplant | procedure are in the | | | | PDT | ([facility]) | results section. | + +--------+ + + + | CBC AND AUTO DIFF | Routin | 02/23/2020 | S/P cord blood | Results for this | | | e | 10:23 AM | transplantation MDS | procedure are in the | | | | PDT | (myelodysplastic | results section. | | | | | syndrome) ([facility]) | | + +--------+ + + + | TACROLIMUS, WHOLE | Routin | 02/23/2020 | S/P cord blood | Results for this | | BLOOD | e | 10:23 AM | transplantation MDS | procedure are in the | | | | PDT | (myelodysplastic | results section. | | | | | syndrome) ([facility]) | | + +--------+ + + + | CMV PCR | Routin | 02/23/2020 | S/P cord blood | Results for this | | QUANTITATION, PLASMA | e | 10:23 AM | transplantation MDS | procedure are in the | | | | PDT | (myelodysplastic | results section. | | | | | syndrome) ([facility]) | | + +--------+ + + + | [facility] - PHOSPHORUS, | Routin | 02/23/2020 | S/P cord blood | Results for this | | PLASMA | e | 10:23 AM | transplantation MDS | procedure are in the | | | | PDT | (myelodysplastic | results section. | | | | | syndrome) ([facility]) | | + +--------+ + + + | [facility] - MAGNESIUM, | Routin | 02/23/2020 | S/P cord blood | Results for this | | PLASMA | e | 10:23 AM | transplantation MDS | procedure are in the | | | | PDT | (myelodysplastic | results section. | | | | | syndrome) ([facility]) | | + +--------+ + + + | [facility] - LDH TOTAL, | Routin | 02/23/2020 | S/P cord blood | Results for this | | PLASMA | e | 10:23 AM | transplantation MDS | procedure are in the | | | | PDT | (myelodysplastic | results section. | | | | | syndrome) ([facility]) | | + +--------+ + + + | [facility] - COMPLETE | Routin | 02/23/2020 | S/P cord blood | Results for this | | METABOLIC SET | e | 10:23 AM | transplantation MDS | procedure are in the | | | | PDT | (myelodysplastic | results section. | | | | | syndrome) ([facility]) | | + +--------+ + + + | [facility] CBC W | Routin | 02/23/2020 | S/P cord blood | Results for this | | DIFFERENTIAL | e | 10:23 AM | transplantation MDS | procedure are in the | | | | PDT | (myelodysplastic | results section. | | | | | syndrome) ([facility]) | | + +--------+ + + + | SPIROMETRY, PULM | Routin | 02/23/2020 | GVHD (graft versus | Results for this | | FUNCTION LAB | e | 9:33 AM | host disease) ([facility]) | procedure are in the | | [...] section. | | | | | syndrome) ([facility]) | | + +--------+ + + + | CHIMERISM SORTED | Routin | 02/13/2020 | S/P cord blood | Results for this | | CELLS, DNA, BLOOD | e | 10:09 AM | transplantation | procedure are in the | | ([facility]) | | PDT | GVHD (graft versus | results section. | | | | | host disease) ([facility]) | | + +--------+ + + + | CHIMERISM SORTED | Routin | 02/13/2020 | S/P cord blood | Results for this | | CELLS, DNA, BLOOD | e | 10:09 AM | transplantation | procedure are in the | | | | PDT | GVHD (graft versus | results section. | | | | | host disease) ([facility]) | | + +--------+ + + + | TACROLIMUS, WHOLE | Routin | 02/13/2020 | S/P cord blood | Results for this | | BLOOD | e | 10:09 AM | transplantation MDS | procedure are in the | | | | PDT | (myelodysplastic | results section. | | | | | syndrome) ([facility]) | | + +--------+ + + + | CMV PCR | Routin | 02/13/2020 | S/P cord blood | Results for this | | QUANTITATION, PLASMA | e | 10:09 AM | transplantation MDS | procedure are in the | | | | PDT | (myelodysplastic | results section. | | | | | syndrome) ([facility]) | | + +--------+ + + + | [facility] - PHOSPHORUS, | Routin | 02/13/2020 | S/P cord blood | Results for this | | PLASMA | e | 10:09 AM | transplantation MDS | procedure are in the | | | | PDT | (myelodysplastic | results section. | | | | | syndrome) ([facility]) | | + +--------+ + + + | [facility] - MAGNESIUM, | Routin | 02/13/2020 | S/P cord blood | Results for this | | PLASMA | e | 10:09 AM | transplantation MDS | procedure are in the | | | | PDT | (myelodysplastic | results section. | | | | | syndrome) ([facility]) | | + +--------+ + + + | [facility] - LDH TOTAL, | Routin | 02/13/2020 | S/P cord blood | Results for this | | PLASMA | e | 10:09 AM | transplantation MDS | procedure are in the | | | | PDT | (myelodysplastic | results section. | | | | | syndrome) ([facility]) | | + +--------+ + + + | [facility] - COMPLETE | Routin | 02/13/2020 | S/P cord blood | Results for this | | METABOLIC SET | e | 10:09 AM | transplantation MDS | procedure are in the | | | | PDT | (myelodysplastic | results section. | | | | | syndrome) ([facility]) | | + +--------+ + + + | [facility] CBC W | Routin | 02/13/2020 | S/P cord blood | Results for this | | DIFFERENTIAL | e | 10:09 AM | transplantation MDS | procedure are in the | | | | PDT | (myelodysplastic | results section. | | | | | syndrome) ([facility]) | | + +--------+ + + + | DERM PATHOLOGY | Routin | 02/13/2020 | Vbggt-dthenw-zpxw | Results for this | | | e | 9:56 AM | disease (HCC) Rash | procedure are in the | | | | PDT | and other | results section. | | | | | nonspecific skin | | | | | | eruption | | + +--------+ + + + | MA PUNCH BIOPSY OF | Routin | 02/13/2020 | Jciqu-mvpfub-llpg | | | SKIN; SINGLE LESION | e | 9:50 AM | disease (HCC) Rash | | | | | PDT | and other | | | | | | nonspecific skin | | | | | | eruption | | + +--------+ + + + | CBC AND AUTO DIFF | Routin | 02/02/2020 | S/P cord blood | Results for this | | | e | 9:38 AM | transplantation MDS | procedure are [...] | [facility] CBC W | Routin | 02/02/2020 | S/P cord blood | Results for this | | DIFFERENTIAL | e | 9:38 AM | transplantation MDS | procedure are in the | | | | PDT | (myelodysplastic | results section. | | | |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) | | + +--------+ + + + | [facility] - COMPLETE | Routin | 02/02/2020 | S/P cord blood | Results for this | | METABOLIC SET | e | 9:38 AM | transplantation MDS | procedure are in the | | | | PDT | (myelodysplastic | results section. | | | |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) | | + +--------+ + + + | [facility] - LDH TOTAL, | Routin | 02/02/2020 | S/P cord blood | Results for this | | PLASMA | e | 9:38 AM | transplantation MDS | procedure are in the | | | | PDT | (myelodysplastic | results section. | | | | | syndrome) ([facility]) | | + +--------+ + + + | [facility] - MAGNESIUM, | Routin | 02/02/2020 | S/P cord blood | Results for this | | PLASMA | e | 9:38 AM | transplantation MDS | procedure are in the | | | | PDT | (myelodysplastic | results section. | | | | | syndrome) ([facility]) | | + +--------+ + + + | [facility] - PHOSPHORUS, | Routin | 02/02/2020 | S/P cord blood | Results for this | | PLASMA | e | 9:38 AM | transplantation MDS | procedure are in the | | | | PDT | (myelodysplastic | results section. | | | | | syndrome) ([facility]) | | + +--------+ + + + | CMV PCR | Routin | 02/02/2020 | S/P cord blood | Results for this | | QUANTITATION, PLASMA | e | 9:38 AM | transplantation MDS | procedure are in the | | | | PDT | (myelodysplastic | results section. | | | | | syndrome) ([facility]) | | + +--------+ + + + | TACROLIMUS, WHOLE | Routin | 02/02/2020 | S/P cord blood | Results for this | | BLOOD | e | 9:38 AM | transplantation MDS | procedure are in the | | | | PDT | (myelodysplastic | results section. | | | |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) | | + +--------+ + + + | VERITO-LORENZO VIRUS | Routin | 02/02/2020 | S/P cord blood | Results for this | | PCR, PLASMA | e | 9:38 AM | transplantation | procedure are in the | | | | PDT | | results section. | + +--------+ + + + | HUMAN HERPES VIRUS 6 | Routin | 02/02/2020 | S/P cord blood | Results for this | | PCR (PLASMA OR CSF) | e | 9:38 AM | transplantation | procedure are in the | | | | PDT | | results section. | + +--------+ + + + | LAB REPORTS | | 12/23/2019 | | Results for this | | | | | | procedure are in the | | | | | | results section. | + +--------+ + + + from Last 3 Months Results CHIMERISM SORTED CELLS, DNA, BLOOD ([facility]) (02/23/2020 10:24 AM PDT)Only the most recent of 2 results within the time period is included. + + + + + + | [...] | Donor #1 Name/ID: [id number] | | [facility] | | | ION | [id number] Gender: | | DIAGNOSTIC | | | | MaleDonor #2 Name/ID: | | | | | | [facility] [id number] | | LABORATORIE | | | | Gender: FemaleDate of | | S | | | | Transplant: | | | | | | 04/22/2019Chimerism | | | | | | Results (Sorted | | | | | | Cells):CD3+ T-cells: 0% | | | | | | Host; 100% Donor #2 | | | | | | ([facility] 1819-6360-1); No | | | | | | Detectable Donor #1 | | | | | | ([facility] 4780-6782-0)CD33+ | | | | | | Myeloid cells: 0% Host; | | | | | | 100% Donor #2 ([facility] | | | | | | [id number]); No | | | | | | Detectable Donor #1 | | | | | | ([facility] 9040-5635-0)Sorted | | | | | | Cell Purity (Reported | | | | | | by the [facility] | | | | | | Immunology | | | | | | Laboratory):CD3+ = | | | | | | 133,000 cells; 99 % | | | | | | hwmxLA04+ = 150,000 | | | | | [...] METHOD(S) | The laboratory received | | [facility] | | | | specimens from the [...] | | | | | | loci [id number], [id number], | | | | | | F3R219, CSF1PO, [id number], | | | | | | THO1, L87H081, E00N068, | | | | | | [id number], K97O194, vWA, | | | | | | TPOX, D18S51, Q0Z567, | | | | | | FGA [...] | This test was developed | | [facility] | | | | and its performance | | DIAGNOSTIC | | | | characteristics | | | | | | determined by the [facility] | | LABORATORIE | | | | [...] | | | [employer] [place] | | | | | | Pathologists ([employer]). | | | | | | Unit Control Clerk: | | | | | | Tayo [...] | [facility] | [address] | [place] [address] | | | DIAGNOSTIC | [address] | | | | LABORATORIES | | | | + + + + + CHIMERISM SORTED CELLS, DNA, BLOOD (02/23/2020 10:24 AM PDT)Only the most recent of 2 resul ts within the time period is included. + +---------+ + + + | Component [...] [facility] | [address] | [place] [address] | | | SERVICES, SPECIAL | [address] | | | | IMM + COAG | | | | + + + + + [facility] - MAGNESIUM, PLASMA (02/23/2020 10:23 AM PDT)Only the most recent of 3 results within t time period is included. + +-------+ + + + | Component [...] | + + + + + | [facility] | [address] | [place] [address] | | | [facility] | | | | | HEALTH + HEALING | | | | + + + + + [facility] - PHOSPHORUS, PLASMA (02/23/2020 10:23 AM PDT)Only the most recent of 3 results within the time period is included. + +-------+ + + + | Component [...] [facility] | [address] | [place] [address] | | | SERVICES, [facility] FOR | | | | | HEALTH + HEALING | | | | + + + + + [facility] - LDH TOTAL, PLASMA (02/23/2020 10:23 AM PDT)Only the most recent of 3 results within t he time period is included. + +---------+ + + + | Component [...] | + + + + + | [facility] | [address] | [place] [address] | | | SERVICES, [facility] | | | | | HEALTH + HEALING | | | | + + + + + CBC AND AUTO DIFF (02/23/2020 10:23 AM PDT)Only the most recent of 3 results within the is included. + + + + + + | [facility] | [address] | [place] [address] | | | SERVICES, [facility] | | | | | HEALTH + HEALING | | | | + + + + + [facility] - COMPLETE METABOLIC SET (02/23/2020 10:23 AM PDT)Only the most recent of 3 results wit raleighn the time period is included. + + + + + + | [...] | | | LABORATORY | | | [facility] | | | SERVICES, | | | [...] MDRD equation recommended by the National | SDSU | | Kidney Disease Education Program. Estimated [...] + + | [facility] | [address] | [place] [address] | | | [facility] | | | | | HEALTH + HEALING | | | | + + + + + CMV PCR QUANTITATION, PLASMA (02/23/2020 10:23 AM PDT)Only the most recent of 3 results wit okn the time period is included. + + + + + + | [...] 2 fold may not reflect true | [facility] | | biological changes and must be [...] | | | characteristics determined by the [facility] Diagnostic [facility] | | | Molecular Diagnostic Center. It has not been cleared or approved by | | | the Food and Drug Administration. FDA approval is not required for | | | clinical use of this test, and therefore validation was done as | | | required under the requirements of the Clinical Laboratory Improvement | | | Act of 1988. The [facility] | | | Diagnostic Center is a fully licensed and/or accredited clinical | | | laboratory under CLIA, [facility], and the [facility]. | | + + + + + + + + | Performing | Address | City/State/[facility] | Phone Number | | Organization | | | | + + + + + | [facility] | [address] | [place] [address] | | | DIAGNOSTIC | [address] | | | | LABORATORIES | | | | + + + + + TACROLIMUS, WHOLE BLOOD (02/23/2020 10:23 AM PDT)Only the most recent of 3 results within t he time period is included. + +-------+ + + + | Component [...] + + + | Test performed at [facility]. Test performed by immunoassay | [facility] | | using [employer] Documentation Manager i2000. . Samples for analysis of | [...] | + + + + + | [facility] | [address] | [place] [address] | | | SERVICES, SPECIAL | [address] | | | | IMM + COAG | | | | + + + + + SPIROMETRY, PULM FUNCTION LAB (02/23/2020 9:33 AM PDT) + + + + + + | Component | Value | Ref Range | Performed | Pathologist | | | | | At | Signature | + + + + + + | PULMONARY | Site: [facility] | | [facility] | | | INTERPRETAT | [facility] | | SPECIAL | | | ION | [facility] | | DIAGNOSTICS | | | | [address],[place], [place], | | - | | | | [id number]: [id number] | | PULMONARY | | | | Name: ANALY HOPPER | | FUNCTION | | | | ANNVisit Date: | | | | | | 02/23/2020 Second ID: | | | | | | [id number]: | | | | | | Oleg Tipton: 54 | | | | | | : 1965 Sex: | | | | | | Female Race: | | | | | | CaucasianHeight: 157.20 | | | | | | Cms Weight: 65.40 | | | | | | Kgs BSA: 1.66Order | | | | | | IDs: [id number] | | | | | | Test(s): [...] + + + + + + | YWW22-40% | 1.03 | 2.44 L/sec | [facility] | | | PRE | | | SPECIAL | | | | | | DIAGNOSTICS | | | | | | - | | | | | | PULMONARY | | | | | | FUNCTION | | + + + + + + | VIP34-14% | 42 | % | [facility] | [...] + | [facility] | [address] | [place], [place] | | | DIAGNOSTICS - | [address] | [address] | | | PULMONARY FUNCTION | | | | + + + + + DERM PATHOLOGY (02/13/2020 9:56 AM PDT) + [...] | OLOGY | | | | Case: [id number] | | | | | | | [...] | | | | | | at [facility] Received: | | | | | | [...] | Diagnosis | INTERFACE CHANGE.NOTE: | | OLSTEVEN | Emily Stark | | | The [...] mild | | | | | | nohzj-yufdva-lakk | | | | | | disease, [...] [facility] | [address] | [place] [address] | | | DERMATOPATHOLOGY | [address] | | | + + + + + | [facility] | [address] | [place] [address] | | | DERMATOPATHOLOGY | [address] [...] | + + + + + | [facility] | [address] | [place] [address] | | | LUZMARIA FAN | [address] [...] we have completed a quantitative polymerase | [facility] | | chain reaction (PCR) based study [...] | | performance characteristics determined by the [facility] | | | Diagnostics Center. It has not been cleared or approved by the Food | | | and Drug Administration. FDA approval is not required for clinical | | | use of this test, and therefore validation was done as required under | | | the requirements of the Clinical Laboratory Improvement Act of 1988. | | | The [facility] is a fully licensed and/or accredited clinical laboratory | | | under CLIA, [facility], and the State of [place]. References: 1) | | | Phong et [...] | | real-time polymerase chain reaction. Transfusion 2008;48:8266-5296. | | | 4) Bassam SULEIMAN, Genny SCOTTM, Félix I, van keshia Bij W, et al. | | | Frequent monitoring of Verito-Lorenzo virus DNA load in unfractionated | | | whole blood is essential for early detection of posttransplant | | | lymphoproliferative disease in high-risk patients. Blood | | | 2001;97(5):8669-4657. | | + + + + + + + + | Performing | Address | City/State/[facility] | Phone Number | | Organization | | | | + + + + + | [facility] | [address] | [place] [address] | | | DIAGNOSTIC | [address] [...] - [facility] | | | | [place] [address] | | | | | | [phone]. | | | | | | Zeferino [...] A: | | | | | | [employer] | | | | + + + [...] [facility] | [address] | [place], [place] | | | [facility] | | [address] | | + + + + + LAB REPORTS (12/23/2019) + + + | Narrative | Performed At | + + + | | | + + + from Last 3 Months Insurance +-------+--------+ +--------+ + +------+ | Payer | Benefi | Subscriber | Effect | Phone | Address | Type | | | t Plan | ID | yamileth | | | | | | / | | Dates | | | | | | Group | | | | | | +-------+--------+ +--------+ + +------+ | MODA | MODA | [id number] | 07/30/19 | [phone] | [address] | PPO | | | [place]FFINI | | 20-Pre | 4 | [id number] | | | | [place] | | sent | | [place], | | | | | | | | [place] [address] | | +-------+--------+ +--------+ + +------+ + +--------+ +--------+ + + | Guarantor Name | Accoun | Relation to | Date | Phone | Billing Address | | | t Type | Patient | of | | | | | | | | | | + +--------+ +--------+ + + | Analy Hopper | Person | Self [birth year] | [address] | | | al/Fam | | 1966 | [phone] | [address], | | | [place] | | | [address] (Home) | [place] [address] | + +--------+ +--------+ + + Advance Directives + + + + + | Code Status | Date | Date | Comments | | | Activated | Inactivated | | + + + + + | Full Code | 07/07/2019 | 07/12/2019 | | | | 10:57 PM | 10:05 PM | | + + + + + + + + +---+ | | | | | + + + +---+ | Full Code | 04/15/2019 | 05/18/2019 | | | | 10:27 AM | 11:20 PM | | + + + +---+ + + + +---+ | | | | | + + + +---+ | Full Code | 01/14/2019 | 01/17/2019 | | | | 11:39 AM | 11:38 PM | | + + + +---+
--- OUTSIDE RECORDS SUMMARY | ~2020-03-12 | XMS | Encounter Summary ---
Demographics + + + | Address | [address] | | | [place] [address] | + + + | Home Phone [...] Team Providers + +------+ + | Care Metal Caster Name | Role | Phone | + +------+ + | Ericka Sanchez | PCP | | + +------+ + Reason for Visit + + + | Reason | Comments | + + + | GVHD - | | | Llkxt-zorcag-vmol | | | disease | | + + + | Nausea and vomiting | | + + + AUTH/CERT +--------+--------+ [...] + + | 07/07/ | Hospital | [facility] [address] | [place], | | | 2020 - | Encounter | [facility] Mailcode: | [address] | | | | | [id number] | [address] | | | 07/12/ | | Stephany Tiona, | [place], [place] | | | 2019 | | [place] [address] | [address] | | | | | [phone] | [phone] | | | | | | | | | | | | Olya Steven MD | | | | | | [address] | | | | | | Melly Gutierrez [place], | | | | | | [place] [address] | | | | | | [phone] | | | | | | | | | | | | Aniya Banks, | | | | | | [address] [facility] | | | | | | [address] | | | | | | [place], [place] | | | | | | [address] | | | | | | [phone] | | | | | | | [...] + + + | Blood Pressure | 131/69 | 07/12/2019 12:06 PM | | | | | PST | | + + + + + | Pulse | 80 | 07/12/2019 12:06 PM | | | | | PST | | + + + + + | Temperature | 36.6 C (97.9 F) | 07/12/2019 12:06 PM | | | | | PST | | + + + + + | Respiratory Rate | 16 | 07/12/2019 12:06 PM | | | | | PST | | + + + + + | Oxygen Saturation | 95% | 07/12/2019 12:06 PM | | | | | PST | | + + + + + | Inhaled Oxygen | - | - | | | Concentration | | | | + + + + + | Weight | 57 kg (125 lb 11.2 | 07/12/2019 5:38 AM | | | | oz) | PST | | + + + + + | Height | 156.8 cm (5' 1.73") | 07/08/2019 4:32 PM | | | | | PST | | + + + + + | Body Mass Index | 23.19 | 07/08/2019 4:32 PM | | | [...] encounter Discharge Summaries Best Calabrese PA-C,GREG - 07/12/2019 12:25 PM PST [facility] Discharge Summary Discharging Provider: Best Calabrese PA-C,GREG Discharging Attending Physician: Aniya Banks MD Hospital Stay: 5 day(s) PCP: LACY Perez Admission Date: 07/07/2019 Discharge Date: 07/12/2019 Hospital Stay: 5 day(s) Reason for Admission: N/V/D, w/u for GI GVHD CHM Physician: Sejal De La Torre DO Hematologic Malignancy: MDS Conditioning regimen: FluCyTBI Date of transplant: 04/22/2019 Donor: CBU 1: [id number]/02 match, CBU 2: [id number]/02 match 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 female with hx of MDS s/p FluCyTBI cord blood transplant (on [place] [facility] [facility]). 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 At admission pt was started on 1 mg/kg/day of methylpred and was tapered to 0.75 mg/kg/day 07/12/19. She will need to co ntinue the taper outpatient. 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 Pt started on cipro/flagyl x 1 week for the colitis. An incidental finding of a RLL PNA was discovered on imaging. ID concerned for fungal proce ss. Pt underwent a BAL 07/11, results from the procedure are pending. Pt did not have any res piratory symptoms throughout the admission. Follow up outpatient: -BAL results -Steroid taper -Posa level checked 07/10, pending - currently taking therapeutic dose, ID recommends contin uing this dose until BAL results -Repeat chest CT 07/21 or 07/22 per ID recs Hospitalization History: Hematology: #Hematologic Malignancy: MDS Conditioning Regimen: FluCyTBI -TBI 1200 cGy in 8 fractions with dose of 50cGy administered twice daily x 4 days -Fludarabine 25mg/m2 to be administered IV over 30 minutes on Day -7, -6, -5 -[place] 60mg/kg to be administered IV every 24 hours on Day -7, -6 -Cyclophosphamide 60mg/kg to be administered IV x 24 hours on Day -7, -6 Stem cell transplant -BMT Day: 04/22/2019 -Stem Cell product: tolerated stem cell product on 04/22/2019 without complications. CD 34 count = 0.07 x 10 6 per kg and 0.10 x 10 6 per kg Post-transplant: -Day +21 chimerism ordered per study: 100% donor #2 CD33, CD56, CD3 and CD19 insuffici ent for analysis -BM Bx to be completed on day +30, day +100, 6 months, and 1 year post-trans plant -Day +30 BMBX completed on 05/25 -Results: Hypocellular marrow (25%) with trilineage hematopo iesis. No increase in blasts, <2%. -Cytogenetics/FISH: normal female -VNTR: 100% donor #2 (female) -Genetrails: no prior mutations #Anemia: 2/2 recent transplant and donor/recipient ABO mismatch -See supportive care #Supportive Care: Growth Factor: not indicated Labs: Continue to check CBC with each visit Transfusion parameters: -Transfuse PRBCs for HCT <21% if asymptomatic OR <24% if symptomatic -Transfuse PPH for platelet count <10,000 sooner for s/s bleeding GVHD: #Diarrhea with concern for GI GVHD: initially presented with rash and nausea on 06/[facility] in [facility]. Started topical agents for rash and planned for beclomethasone but was not started d/ t insurance issues. On 07/07 she was again seen in clinic with worsening abdominal cramping a nd diarrhea. She was admitted through the ED. CT A/P shows diffuse colitis. GI consulted a nd underwent EGD/flex sig on 07/08. C.Diff, GI path panel neg. Sxs improving with steroids. -Path: No evidence of GHVD, negative viral stains -Methylpred 1 mg/kg/d (07/07-07/11 ), lower than standard dose recommended by outpatient BMT physician. 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 -Continue triamcinolone cream BID PRN and steroids as above. Prophylaxis/Treatment: Prophylaxis with tacrolimus and MMF per [place] protocol - Tacrolimus started D-3 (goal 5-15) -Tacrolimus 0.5 mg PO qPM -Tacrolimus 1.0 mg PO qAM -MMF given at a dose of 15 mg/kg TID D-3 to D+60 Acute GvHD Staging: Skin: stage 0 Gut: stage 1 Liver: stage 0 Overall Grade: II Kyle Simpson phase 3 (IRB 10369) Acute GVHD Staging Complete on study visit days 7,14, 21, 28, 35, 42, 56, 70, 100, 180 aGVHD Staging Criteria: Rule of 9:arm 9%; head 18%; palm 1%; leg 18%; anterior chest 18%; posterior chest 18%; carlton meka 1%. Stage Skin/Rash Liver (Tbili mg/dL) Upper GI Lower GI 1 <25% BSA 2-3 mg/dL Persistent anorexia, nausea, or vomiting 500-1000 mL diarrhea/day 2 25-50% BSA 3.1-6 mg/dL 7091-4619 mL diarrhea/day 3 >50% BSA Generalized erythroderma 6.1-15 mg/dL >1500 mL diarrhea/day 4 Generalized erythroderma with bullus formation >15 mg/dL Severe abdominal pain with/without ileus Determine Differential Diagnosis: (Y/N): GVHD:y Drug Reaction: n Conditioning regimen toxicity:N Infection:N Other (describe): Engraftment vs drug rash (Cefepime) (Y/N): GVHD:N Drug Reaction:N Conditioning regimen toxicity:N TPN:N Infection:N Other (describe): N/A (Y/N): GVHD:N Drug Reaction:N Conditioning regimen toxicity:Y TPN:N Infection:N Other (describe):N/A (Y/N): GVHD:N Drug Reaction:n Conditioning regimen toxicity:n TPN:N Infection: ? Other (describe):N Complete Values: BSA%:18% (faint anterior chest only) Bullae (Y/N):N TBili: 0.7 24H Diarrhea Vol: 600 Severe abd pain (Y/N):N Ileus (Y/N):N Assign Stage: 1 0 0 0 Presumptive/ Confirmed Dx of aGVHD? (Y/N) N N N N Pulmonary: Pretransplant PFTs completed on 03/10/19 showed FEV1 of 76% predicted, FVC of 87% predicted and adjusted DLCO of 77% predicted. #RLL PNA: see ID section below Cardiovascular: Pretransplant TTE completed on 03/10/2019 showed a LVEF of 64%. No acute issues GI: #Nausea, diarrhea, abdominal cramping: see GVHD section above -PRN antiemetics -PRN imodium #Risk of gastritis: -Omeprazole daily #Risk for VOD: no e/o this currently -Ursodiol 500 mg PO BID /Renal: No acute issues Psych: #Insomnia: exacerbated by steroids -Zyprexa 2.5 mg qHS, started 07/10 #RLS -Requip 0.5 mg qHS, increased on 06/13 #Depression: -Lexapro 20 mg PO daily Infectious Disease: #Herpes Zoster, recent history: Noted in December, now s/p treatment with IV acyclovirfrom approx 01/10 through 01/16 then transitioned to valacyclovir 1g TID to complete an additional 7dcourse (extended for new lesions).She will continue on valacyclovir(rather than acyc lovir)through day +365 post transplant. -Valacyclovir 500mg BID #RLL PNA: incidental finding on CT A/P in ED. Dedicated CT chest on 07/08 confirmed RLL nod ular infiltrate. ID consulted on 07/09 and do not feel abx are indicated as this is most lik jin fungal process. Cr Ag neg, galactomannan negative. -Pulm following: s/p BAL 07/11 PENDING -F/u posa level from 07/10 -ID following: increase Posa to 400mg daily until BAL results #Prophylaxis: Bacterial: see above Fungal: Posaconazole, level adequate at 0.7 on 04/28, repeat level 07/10 PENDING Viral: Valacyclovir CMV: Letermovir dc'd, per ID not indicated at this time PCP: Dapsone dc'd on 07/08 as may be contributing to elevated retic count/anemia, pentamidin e given on 07/09 Toxo: Pt is toxo negative, no further testing required. #Routine infectious disease testing -CMV by PCR twice weekly, starting after day 0. 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 #Fluid: PRN at infusion appointments #Lytes: Continue to check chemistries with each visit. Replace per supportive care protocol . Discharge Medications: Medication List START taking these medications ciprofloxacin HCl 500 mg Tab Commonly known as: CIPRO Take 1 tablet by mouth two times daily for 7 days. Indications: abdominal infection metroNIDAZOLE 500 mg Tab Commonly known as: FLAGYL Take 1 tablet by mouth three times daily for 7 days. Notes to patient: AVOID ALCOHOL WHILE TAKING THIS MEDICATION OLANZapine 2.5 mg Tab Commonly known as: ZYPREXA Take 1 tablet by mouth once daily at bedtime. omeprazole 40 mg Cpdr Commonly known as: PRILOSEC Take 1 capsule by mouth once daily. Administer 30 to 60 minutes before meals Start taking on: July 13, 2019 predniSONE 5 mg Tab Commonly known as: DELTASONE Take 4 tablets by mouth two times daily before meals for 5 days, THEN 3 tablets two times d aily before meals for 5 days, THEN 2 tablets two times daily before meals for 5 days, THEN 2 tablets once daily for 5 days. Start taking on: July 12, 2019 CHANGE how you take these medications posaconazole DR 100 mg Tbec Commonly known as: NOXAFIL Take 4 tablets by mouth once daily. Indications: prevention of fungal infection What changed: how much to take * tacrolimus 1 mg Cap Effective 07/12/2019: Take 1 mg by mouth every morning and 1 mg every evening. Combine 0.5m g and 1mg capsules to make your current dose. HOLD on days of clinic and bring with you to [facility] AFTER your labs are drawn. Indications: prevention of graft versus host disease What changed: additional instructions * tacrolimus 0.5 mg Cap Effective 07/12/2019: Take 1 mg by mouth every morning and 1 mg every evening. Combine 0.5m g and 1mg capsules to make your current dose. HOLD on days of clinic and bring with you to [facility] AFTER your labs are drawn. Indications: prevention of GVHD Indications: prevention of gr aft versus host What changed: additional instructions * This list has 2 medication(s) that are the same as other medications prescribed for you. Read the directions carefully, and ask your doctor or other care provider to review them wi th you. CONTINUE taking these medications beclomethasone 1 mg/mL oral suspension (compound) Take 1 mL by mouth four times daily. Indications: treatment to prevent reaction after bone marrow transplant escitalopram oxalate 20 mg Tab Commonly known as: LEXAPRO Take 1 tablet by mouth once daily. Indications: major depressive disorder famotidine 20 mg Tab Commonly known as: PEPCID Take 1 tablet by mouth once daily at bedtime. Indications: prevention of inflammation of st omach hydrocortisone 2.5 % Crpe Commonly known as: PROCTOZONE Apply to affected area three times daily as needed. Wash and dry the rectal area, gently ma ssage a small amount into the affected area. loperamide 2 mg Cap Commonly known as: IMODIUM Take 1 capsule by mouth as needed for diarrhea. Do not exceed max dose of 16 mg/day. loratadine 10 mg Tab Commonly known as: CLARITIN Take 1 tablet by mouth once daily as needed. Indications: bone pain. ondansetron 8 mg Tab Commonly known as: ZOFRAN Take 1 tablet by mouth every twelve hours as needed for nausea/vomiting. Indications: nause a and vomiting caused by cancer drugs potassium chloride SR 10 mEq Tbtq Commonly known as: KLOR-CON Take 2 tablets by mouth once daily. prochlorperazine 5 mg Tab Commonly known as: COMPAZINE Take 1-2 tablets by mouth every six hours as needed for nausea/vomiting. Max dose: 40 mg/da y rOPINIRole 0.5 mg Tab Commonly known as: REQUIP Take 1 tablet by mouth once daily in the evening. traMADol 50 mg Tab Commonly known as: ULTRAM Take 1 tablet by mouth every six hours as needed for moderate pain. triamcinolone acetonide 0.1 % Oint Commonly known as: KENALOG Apply a thin film to the affected areas twice daily as needed . Indications: skin rash ursodiol 500 mg Tab Take 1 tablet by mouth two times daily. Take this medication through day +90 (07/21/2019) I ndications: prevention of veno-occulsive disease valACYclovir 500 mg Tab Commonly known as: VALTREX Take 1 tablet by mouth two times daily. STOP taking these medications dapsone 100 mg Tab letermovir 480 mg Tab Commonly known as: PREVYMIS Rationale for Medication Changes: Medications changed based on patient symptoms, medical interventions and chronic disease luis sweeney. Allergies: Allergies Allergen Reactions Cefepime Rash Sulfa (Sulfonamide Antibiotics) Hives Code Status: Full POLST completed: no Additional Instructions: Diet Instructions Diet Type: Low bacteria diet- You should choose foods that have a low bacterial content to reduce the risk of infection. Your nurse or dietitian will provide you with information ab out foods to avoid. - Activity Instructions Activity restrictions: Avoid large [...] exposure after radiation or chemotherapy. Additional Instructions Over the counter Medication- use as needed: [...] Follow Up: Future Appointments Provider Department Dept [facility] 07/14/2019 8:00 AM LAB ONC RN Laboratory at [facility] [phone] PHLEBOTOMY 07/14/2019 9:00 AM [facility] at [facility] Arrive at: 10th Floor Hematology/Medical Oncology [phone] HemOnc 07/14/2019 10:10 AM Gen Onc Hematology/Medical Oncology at [facility] [phone] HemOnc 07/18/2019 1:00 PM Fast Track Modern Dancer/Medical Oncology at [facility] [phone] HemOnc 07/18/2019 2:00 PM BMT INFUSION Hematology/Medical Oncology at [facility] [phone] HemOn 07/21/2019 8:00 AM LAB ONC RN Laboratory at [facility] [phone] PHLEBOTOMY 07/21/2019 9:00 AM Sejal De La Torre [place] [facility] at [facility] Arrive at: 10th Floor Hematology/Medical Oncology [phone] HemOnc 07/21/2019 9:30 AM Pod A Hematology/Medical Oncology at [facility] [phone] HemOnc 07/25/2019 3:00 PM Fast Track Modern Dancer/Medical Oncology at [facility] [phone] HemOnc 07/25/2019 3:40 PM BMT INFUSION Hematology/Medical Oncology at [facility] [phone] HemOnc 07/28/2019 8:00 AM LAB ONC RN Laboratory at [facility] [phone] PHLEBOTOMY 07/28/2019 8:45 AM Sejal De La Torre [place] [facility] at [facility] Arrive at: 10th Floor Hematology/Medical Oncology [phone] HemOnc 07/28/2019 9:20 AM BMT INFUSION Hematology/Medical Oncology at [facility] [phone] HemOnc 08/01/2019 1:40 PM LAB ONC RN Laboratory at [facility] [phone] PHLEBOTOMY 08/01/2019 2:30 PM BMT INFUSION Hematology/Medical Oncology at [facility] [phone] 1:20 PM LAB ONC RN Laboratory at [facility] [phone] PHLEBOTOMY 08/04/2019 2:15 PM [facility] at [facility] Arrive at: 10th Floor Hematology/Medical Oncology [phone] HemOn 08/04/2019 2:40 PM BMT INFUSION Hematology/Medical Oncology at [facility] [phone] [facility] Objective: Last Vitals: BP 135/64 (BP Location: Right upper arm, Patient Position: Lying on back) | P ulse 72 | Temp 37.2 C (99 F) (Oral) | Resp 16 | Ht 1.568 m (5' 1.73") | Wt 57 kg (12 5 lb 11.2 oz) | SpO2 97% | BMI 23.19 kg/m | BSA 1.58 m 24 Hour Vital Min/Max: Systolic (24hrs), Av , Min:131 , Max:155 Diastolic (24hrs), Av, Min:59, Max:68 Pulse Min: 51 Max: 78 Temp Min: 36.6 C (97.9 F) Max: 37.2 C (99 F) Resp Min: 14 Max: 16 SpO2 Min: 95 % Max: 97 % Intake/Output Summary (Last 24 hours) at 07/12/2019 1225 Last data filed at 07/12/2019 0900 Gross per 24 hour Intake 3911 ml Output 4900 ml Net -989 ml Physical Exam: General: This is a female in no acute distress. Sitting up in bed. HEENT: PERRL. Sclerae anicteric. Mucosa pink and moist without erythema or exudate. Skin: Very faint patchy erythema to upper back. Chest: Lungs clear to auscultation bilat. CV: RRR, no murmurs. Abdomen: S/NT/ND with NABS. No HSM appreciated. Extremities: Pulses strong and equal bilaterally. No c/c/e. Neuro: Alert and oriented x 3. Grossly nonfocal exam. CVC: 2L groshong without induration or inflammation. Laboratory Results: Recent Labs 07/10/19 0012 07/10/19 1000 07/11/19 0002 07/12/19 0211 NA 140 139 137 142 K 2.9* 4.0 3.2* 3.5 CL 106 107 104 110* BICARB 25 26 27 26 BUN 8 9 10 9 CR 0.58* 0.62 0.60 0.62 GLU 129* 112* 170* 156* CA 8.0* 8.1* 8.4* 8.2* AST 11 -- 15 10 ALT 7 -- 9 10 AP 77 -- 87 80 TBILI 0.6 -- 0.5 0.4 TP 5.4* -- 5.6* 5.2* ALB 3.0* -- 3.0* 2.8* Recent Labs 07/10/19 0012 07/11/19 0002 07/12/19 0130 WBC 4.23 4.47 3.78 RBC 2.44* 2.72* 2.64* HB 6.7* 7.6* 7.2* HCT 22.1* 25.1* 25.0* PLT 126* 190 191 NEUTROPERC 72.8* 75.4* 72.2* LYMPHPERC 18.0 15.9* 20.1 MONOPERC 6.6 6.9 6.9 BASOPERC 0.2 0.2 0.0 EOSPERC 0.0* 0.0* 0.0* GREG Kaur PA-C [address] [facility] Mailcode: v14 [place] [address] documented in thi s encounter Discharge Instructions Discharge Instr - AVS First Page Best Calabrese PA-C, MPAS - 07/12/2019 12:23 PM PSTCall the BMT clinic ([phone]) or BMT person on-call ([phone]) for: Any temp > 100.4 Nausea/vomiting unresponsive to anti-nausea medications Significant diarrhea despite Imodium Inability to drink at least 2 liters of fluid daily You develop a rash Bleeding Discharge Instr - Activity Best Calabrese PA-C, MPAS - 07/12/2019 12:22 PM PSTActivity restri ctions: Avoid large crowds and people [...] - Diet Best Calabrese PA-C, MPAS - 07/12/2019 12:22 PM PSTDiet Type: Low bact eria diet- You should choose foods that have a low bacterial content to reduce the risk of i nfection. Your nurse or dietitian will provide you with information about foods to avoid.El ectronically signed by Best Calabrese PA-C, MPAS at 07/12/2019 12:22 PM PST Discharge Instr - Diagnoses Best Calabrese PA-C, MPAS - 07/12/2019 12:18 PM PSTMyelodysplasti c syndrome Pneumonia Colitis Discharge Instr - Procedures Best Calabrese PA-C, MPAS - 07/12/2019 12:19 PM PSTFlexible sigm oidoscopy Bronchioalveolar lavage Discharge Instr - Hospital Course Best Calabrese PA-C, MPAS - 07/12/2019 12:22 PM PSTYou were admitted to the hospital with concern for gastrointestinal GVHD. Biopsy of your colon more consistent with cord colitis - inflammation of your colon after receiving a cord blood trans plant. On imagine you were found to have a right lung pneumonia and underwent a bronchioalve olar lavage to determine underlying cause. Results of this are pending and will be followed up after discharge. Your diarrhea has improved and you are now stable for discharge with demetris se follow up in clinic. Discharge Instr - Electronic Signature Best Calabrese PA-C, MPAS - 07/12/2019 12:23 PM PSTAft er Visit Summary Signature Electronically signed by: Best Calabrese PA-C, MPAS, 07/12/2019 at 12:23 PMElectronically s igned by Best Calabrese PA-C, MPAS at 07/12/2019 12:23 PM PST Additional Instructions Best Calabrese PA-C, MPAS - 07/12/2019 12:23 PM PST Over the counter Medication- use as needed: [...] exposure to direct sunlight or outside activities. Jerome Medel RN - 07/12/2019Check your oral temperature twice a day and whenever yo u feel like you may have chills or a fever. Drink at least 2 Liters of fluids per day to prevent dehydration. Create a food and fluids journal to track your intake and bring it with you to your clinic appointments. Shower daily and WASH YOUR HANDS frequently. Avoid the use of potentially irritating skin products (perfume, cologne, scented lotions, e tc.) Rinse out your mouth with normal saline or salt water at least 4x/day. Make sure to brush your teeth at least 2x/day and as needed after meals (if your platelets are <50K, use a soft toothbrush and do not floss). Cover your central line when showering/bathing (avoid swimming pools, hot tubs, saunas, and whirlpools until your CVC is removed). Have your CVC emergency care kit with you at all times. Refrain from prolonged periods of time in the sun and make sure you ALWAYS wear sunscreen w hen outdoors. Clean surfaces with antibacterial wipes. No plants or hampton until approved by provider. Have your caregiver bathe and clean up after any pets. Wear a mask when around large groups of people. NO SICK CONTACTS! If this cannot be avoided and you suspect someone may be even mildly ill, have them wear a mask or wear one yourself. Stay active! Perform short periods of activity, then make sure to take time for rest. Call if you have any questions! BMT CLINIC ([facility]) during clinic hours (M-F 8:30-4:30): [phone] BMT CLINIC ([facility]) at all other times: [phone] 14KPV: [phone] How was your stay with us? Is there anything we could have done differently to improve your time here on 14K? Nursing Discharge Note Discharge Date: 07/12/2019 Discharge Nurse: JEROME MEDEL RN documented in this encounter Medications at Time [...] as of this encounter Progress Notes Aniya Banks MD - 07/12/2019 11:27 AM PST Hematologic Malignancies/Bone Marrow Transplant Inpatient Attending Progress Note: Hospital course summary: Analy Camarillo is a 53 y.o. femalewith MDSs/p Flu/Cy/TBI followed by double cord bl ood transplant on 04/22/19 who was admitted with diarrhea, worsening abdominal pain, concern for GVHD vs. Infection. She was started empirically on 1mg/kg/day of steroids. She prev iously had a skin rash, which improved with topical agents.She is s/p endoscopy on 2019, biopsy with inflammation but only rare apoptotic bodies, not consistent with GVHD. C ourse complicated by incidental finding of pulmonary nodule, now s/p bronchoscopy. Results from the bronchoscopy were pending at the time of discharge. I rounded today, 07/12/2019, in conjunction with the Advanced Practice Provider Best Calabrese. I saw the patient, reviewed the history and relevant studies and developed an assessment an d plan. Subjective: Feeling well today, says she continues to tolerate food well with no abdominal pain. Is st ill having some diarrhea but only 2x / day and volume is small. Understands that results fr om bronchoscopy will take some time to come back, this will be addressed in the clinic after discharge. Objective: Last Vitals: BP 135/64 (BP Location: Right upper arm, Patient Position: Lying on back) | P ulse 72 | Temp 37.2 C (99 F) (Oral) | Resp 16 | Ht 1.568 m (5' 1.73") | Wt 57 kg (12 5 lb 11.2 oz) | SpO2 97% | BMI 23.19 kg/m | BSA 1.58 m Gen: sitting up in bed, NAD HEENT: no oral lesions Lungs: CTA bilaterally CVS: RRR Abd: soft, NT Skin: no rash Ext: no pitting edema Brief Assessment and Plan: - MDS: Now s/p FluCyTBI conditioned double cord transplant (on the [facility] trial randomize d to SOC), currently day + 81. Her day +60 BMBx obtained 05/25 showed a hypocellular marro w with in increase in blasts. CHimerisms with 100% donor CD33 and CD3+ cells. Her CBC sh ows persistent anemia likely secondary to ABO mismatch, and she is mildly thrombocytopenia. WBC and ANC WNL. Next BMBx at day +100 per the [facility] trial. - GVHD:Prophylaxis with tacrolimus and MMF per the [facility] trial. She presented with a rash on 06/24, topical steroids initiated with improvement in rash. Then developed diarrh ea on 07/07, she was admitted for GHVD work up. A CT A/P obtained 07/07 showed diffuse colitis , and she is now s/p flex sig on 07/08. Pathology results NOT consistent with GVHD, infectio n vs medication effect favored. CMV stains NEGATIVE. She was started on 1 mg/kg prednison e with improvement in her symptoms. Differential includes stage I GVHD, infection, "cord c olitis." With clinical improvement on steroids will taper rather than abruptly discontinue. 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 Ok to advance to low bacteria diet at discharge. 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 As above, pathology from flex sig not consistent with GVHD. Will treat as cord colitis with cipro +flagyl x 7 days. - cipro 500 mg PO BID x 7 days - flagyl 500 mg PO TID x 7 days - Pulmonary nodule: Incidental finding after CT abdomen obtained for GVHD. CT chest fro m 07/09 confrimed a RML / RLL nodular infiltrate. ID was consulted, they did not think anti biotics were indicated as imaging more concerning for a fungal process. She is on posacona zole, trough level pending. Pulmonology has been consulted, she is now s/p bronchoscopy / BAL 07/11. Fluid sent for microbiological testing, f/u results after discharge. - continue posaconazole, f/u results trough level - f/u results BAL - Herpes Zoster: History of disseminated zoster in December 2018, she is s/p treatment with I V acyclovir from 01/10 - 01/16. She will be treated with valacyclovir rather than acyclovir for HSV prophylaxis. - At risk for VOD: Continue ursodiol - ursodiol 500 mg PO BID - Pancytopenia: Secondary to chemotherapy, stem cell transplant. Standard transfusion p arameters as below: - transfuse 1 unit PRBC for hct <21 - transfuse 1 unit platelets for plt <10k ID Prophylaxis: Bacterial:n/a Fungal: Posaconazole, level adequate at 0.7 on 04/28, repeat level 07/10 PENDING Viral: Valacyclovir CMV:Letermovir dc'd, per ID not indicated at this time PCP: Dapsone dc'd on 07/08 as may be contributing toelevated retic count/anemia, pentamidi ne given on 07/09 Toxo: Pt is toxo negative, no further testing required. I have updated the problem list to reflect those problems being actively managed. 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 Aniya Banks MD Vitals: 24 Hour Vital Min/Max: Systolic (24hrs), Av , Min:131 , Max:155 Diastolic (24hrs), Av, Min:59, Max:75 Pulse Min: 51 Max: 78 Temp Min: 36.6 C (97.9 F) Max: 37.2 C (99 F) Resp Min: 12 Max: 16 SpO2 Min: 94 % Max: 97 % Intake/Output Summary (Last 24 hours) at 07/12/2019 1127 Last data filed at 07/12/2019 0900 Gross per 24 hour Intake 3911 ml Output 4900 ml Net -989 ml Labs: CBC with diff last 72 hours (or 3 results) - Refreshable Recent Labs 07/10/19 0012 07/11/19 0002 07/12/19 0130 WBC 4.23 4.47 3.78 HB 6.7* 7.6* 7.2* HCT 22.1* 25.1* 25.0* PLT 126* 190 191 NEUTROPERC 72.8* 75.4* 72.2* LYMPHPERC 18.0 15.9* 20.1 MONOPERC 6.6 6.9 6.9 BASOPERC 0.2 0.2 0.0 EOSPERC 0.0* 0.0* 0.0* Lab Results Component Value Date NA 142 07/12/2019 K 3.5 07/12/2019 CL 110 07/12/2019 BICARB 26 07/12/2019 BUN 9 07/12/2019 EGFRAFRICAN >60 07/12/2019 EGFRNONAFR >60 07/12/2019 CR 0.62 07/12/2019 GLU 156 07/12/2019 CA 8.2 07/12/2019 ANIONGAP 6 07/12/2019 ANIONALBCOR 9 07/12/2019 Lab Results Component Value Date AST 10 07/12/2019 ALT 10 07/12/2019 TBILI 0.4 07/12/2019 AP 80 07/12/2019 TP 5.2 07/12/2019 ALB 2.8 07/12/2019 Medications: ciprofloxacin HCl 500 mg oral tablet, Take 1 tablet by mouth two times daily for 7 days. In dications: abdominal infection escitalopram oxalate 20 mg oral tablet, Take 1 tablet by mouth once daily. Indications: marcia or depressive disorder famotidine 20 mg oral tablet, Take 1 tablet by mouth once daily at bedtime. Indications: pr evention of inflammation of stomach hydrocortisone 2.5 % topical cream with perineal applicator, Apply to affected area three t imes daily as needed. Wash and dry the rectal area, gently massage a small amount into the a ffected area. loperamide 2 mg oral capsule, Take 1 capsule by mouth as needed for diarrhea. Do not exceed max dose of 16 mg/day. loratadine 10 mg oral tablet, Take 1 tablet by mouth once daily as needed. Indications: bon e pain. metroNIDAZOLE 500 mg oral tablet, Take 1 tablet by mouth three times daily for 7 days. OLANZapine 2.5 mg oral tablet, Take 1 tablet by mouth once daily at bedtime. omeprazole 40 mg oral capsule,delayed release(DR/EC), Take 1 capsule by mouth once daily. A dminister 30 to 60 minutes before meals ondansetron 8 mg oral tablet, Take 1 tablet by mouth every twelve hours as needed for nause a/vomiting. Indications: nausea and vomiting caused by cancer drugs posaconazole DR 100 mg oral tablet,delayed release (DR/EC), Take 4 tablets by mouth once da nereyda. Indications: prevention of fungal infection potassium chloride SR 10 mEq oral tablet,ER particles/crystals, Take 2 tablets by mouth two times daily. Indications: low amount of potassium in the blood predniSONE 5 mg oral tablet, Take 4 tablets by mouth two times daily before meals for 5 day s, THEN 3 tablets two times daily before meals for 5 days, THEN 2 tablets two times daily be fore meals for 5 days, THEN 2 tablets once daily for 5 days. prochlorperazine 5 mg oral tablet, Take 1-2 tablets by mouth every six hours as needed for nausea/vomiting. Max dose: 40 mg/day rOPINIRole 0.5 mg oral tablet, Take 1 tablet by mouth once daily in the evening. tacrolimus 0.5 mg oral capsule, Effective 07/14/2019: Take 1 mg by mouth every morning and 0.5 mg every evening. Combine 0.5mg and 1mg capsules to make your current dose. HOLD on days of clinic and bring with you to take AFTER your labs are drawn. Indications: prevention of GVHD tacrolimus 1 mg oral capsule, Effective 07/14/2019: Take 1 mg by mouth every morning and 0. 5 mg every evening. Combine 0.5mg and 1mg capsules to make your current dose. HOLD on days o clinic and bring with you to take AFTER your labs are drawn. Indications: prevention of GV HD Indications: prevention of graft versus host disease traMADol 50 mg oral tablet, Take 1 tablet by mouth every six hours as needed for moderate p ain. triamcinolone acetonide 0.1 % topical ointment, Apply a thin film to the affected areas tw ice daily as needed . Indications: skin rash ursodiol 500 mg oral tablet, Take 1 tablet by mouth two times daily. Take this medication t hrough day +90 (07/21/2019) Indications: prevention of veno-occulsive disease valACYclovir 500 mg oral tablet, Take 1 tablet by mouth two times daily. arren, Aniya White MD - 07/11/2019 3:11 PM PST Hematologic Malignancies/Bone Marrow Transplant Inpatient Attending Progress Note: Hospital course summary: Analy Camarillo is a 53 y.o. femalewith MDSs/p Flu/Cy/TBI followed by double cord bl ood transplant on 04/22/19 who was admitted with diarrhea, worsening abdominal pain, concern for GVHD vs. Infection. She was started empirically on 1mg/kg/day of steroids. She prev iously had a skin rash, which improved with topical agents.She is s/p endoscopy on 2019, biopsy results pending. Course complicated by incidental finding of pulmonary nodule , now s/p bronchoscopy. I rounded today, 07/11/2019, in conjunction with the Advanced Practice Provider Best Calabrese. I saw the patient, reviewed the history and relevant studies and developed an assessment an d plan. Subjective: Analy is doing ok today, She had a bronchoscopy this morning, says she is still a bit sle epy from the anesthesia. She was advanced to a stage III diet yesterday, says eating felt g ood and did not cause any additional GI pain. She only had one bowel movement yesterday, vo lume much smaller. She says her stomach overall feels much better than when she came in. S he is planning to try some more foods today, and if well tolerated she is hoping she can go home soon. Objective: Last Vitals: BP 155/59 (BP Location: Right upper arm, Patient Position: Lying on back;Sitti ng) | Pulse 59 | Temp 36.6 C (97.9 F) (Oral) | Resp 14 | Ht 1.568 m (5' 1.73") | Wt 56.2 kg (124 lb) | SpO2 96% | BMI 22.88 kg/m | BSA 1.56 m Gen: sitting up in bed, NAD HEENT: no oral lesions Lungs: CTA bilaterally CVS: RRR Abd: soft, NT Skin: no rash Ext: no pitting edema Brief Assessment and Plan: - MDS: Now s/p FluCyTBI conditioned double cord transplant (on the [facility] trial randomized to SOC), currently day + 80. Her day +60 BMBx obtained 05/25 showed a hypocellular marrow with in increase in blasts. CHimerisms with 100% donor CD33 and CD3+ cells. Her CBC shows persistent anemia likely secondary to ABO mismatch, and she is mildly thrombocytopenia. WBC and ANC WNL. Next BMBx at day +100 per the [facility] trial. - GVHD: Prophylaxis with tacrolimus and MMF per the [facility] trial. She presented with a ra sh on 06/24, topical steroids initiated with improvement in rash. Then developed diarrhea o n 07/07, she was admitted for GHVD work up. A CT A/P obtained 07/07 showed diffuse colitis, and she is now s/p flex sig on 07/08. Pathology results NOT consistent with GVHD, infection vs medication effect favored. CMV stains NEGATIVE. She was started on 1 mg/kg prednisone wit h improvement in her symptoms. Differential includes stage I GVHD, infection, "cord colitis ." With clinical improvement on steroids will taper rather than abruptly discontinue. Will consider adding Cipro / flagyl for infection vs cord colitis. Ok to continue stage 3 diet. - methylprednisolone 1 mg/kg started 07/07 --> start taper tomorrow 07/12 - tacrolimus goal 5-15 - continue stage 3 GVHD diet - Pulmonary nodule: Incidental finding after CT abdomen obtained for GVHD. CT chest from 07/09 confrimed a RML / RLL nodular infiltrate. ID was consulted, they did not think antibio tics were indicated as imaging more concerning for a fungal process. She is on posaconazole , trough level pending. Pulmonology has been consulted, she is now s/p bronchoscopy / BAL t josé luis 07/11. Fluid sent for microbiological testing. - continue posaconazole - f/u results BAL - Herpes Zoster: History of disseminated zoster in December 2018, she is s/p treatment with IV acyclovir from 01/10 - 01/16. She will be treated with valacyclovir rather than acyclovir fo r HSV prophylaxis. - At risk for VOD: Continue ursodiol - ursodiol 500 mg PO BID - Pancytopenia: Secondary to chemotherapy, stem cell transplant. Standard transfusion par ameters as below: - transfuse 1 unit PRBC for hct < 21 - transfuse 1 unit platelets for plt < 10k ID Prophylaxis: Bacterial: n/a Fungal: Posaconazole, level adequate at 0.7 on 04/28, repeat level 07/10 PENDING Viral: Valacyclovir CMV:Letermovir dc'd, per ID not indicated at this time PCP: Dapsone dc'd on 07/08 as may be contributing toelevated retic count/anemia, pentamidi ne given on 07/09 Toxo: Pt is toxo negative, no further testing required. I have updated the problem list to reflect those problems being actively managed. 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 Aniya Banks MD Vitals: 24 Hour Vital Min/Max: Systolic (24hrs), Av , Min:116 , Max:178 Diastolic (24hrs), Av, Min:58, Max:145 Pulse Min: 52 Max: 101 Temp Min: 36.3 C (97.3 F) Max: 37.1 C (98.8 F) Resp Min: 11 Max: 20 SpO2 Min: 92 % Max: 98 % Intake/Output Summary (Last 24 hours) at 07/11/2019 1511 Last data filed at 07/11/2019 1500 Gross per 24 hour Intake 3406 ml Output 3040 ml Net 366 ml Labs: CBC with diff last 72 hours (or 3 results) - Refreshable Recent Labs 07/09/19 0007 07/10/19 0012 07/11/19 0002 WBC 4.17 4.23 4.47 HB 7.0* 6.7* 7.6* HCT 23.3* 22.1* 25.1* PLT 206 126* 190 NEUTROPERC 75.6* 72.8* 75.4* LYMPHPERC 16.8* 18.0 15.9* MONOPERC 5.0 6.6 6.9 BASOPERC 0.0 0.2 0.2 EOSPERC 0.0* 0.0* 0.0* Lab Results Component Value Date NA 137 07/11/2019 K 3.2 07/11/2019 CL 104 07/11/2019 BICARB 27 07/11/2019 BUN 10 07/11/2019 EGFRAFRICAN >60 07/11/2019 EGFRNONAFR >60 07/11/2019 CR 0.60 07/11/2019 GLU 170 07/11/2019 CA 8.4 07/11/2019 ANIONGAP 6 07/11/2019 ANIONALBCOR 8 07/11/2019 Lab Results Component Value Date AST 15 07/11/2019 ALT 9 07/11/2019 TBILI 0.5 07/11/2019 AP 87 07/11/2019 TP 5.6 07/11/2019 ALB 3.0 07/11/2019 Medications: acetaminophen (TYLENOL) tablet 650 mg, 650 mg, oral, Q4H PRN escitalopram oxalate (LEXAPRO) tablet 20 mg, 20 mg, oral, DAILY magnesium sulfate in water IV (RTU) 4 g, 4 g, intravenous, PRN magnesium sulfate IV 8 g, 8 g, intravenous, PRN methylPREDNISolone sod succ (SOLU-MEDROL) injection 30 mg, 30 mg, intravenous, BID OLANZapine (ZYPREXA) tablet 2.5 mg, 2.5 mg, oral, HS omeprazole (PRILOSEC) capsule 40 mg, 40 mg, oral, DAILY ondansetron (ZOFRAN) injection, , , ondansetron (ZOFRAN) tablet 8 mg, 8 mg, oral, Q12H PRN posaconazole DR (NOXAFIL) tablet 300 mg, 300 mg, oral, DAILY potassium chloride IV (central line) 40 mEq, 40 mEq, intravenous, PRN OR potassium chlo ride IV (central line) 60 mEq, 60 mEq, intravenous, PRN potassium chloride SR (K-DUR) tablet 40 mEq, 40 mEq, oral, PRN potassium phosphate IV (CENTRAL LINE) 30 mmol, 30 mmol, intravenous, PRN OR potassium p hosphate IV (CENTRAL LINE) 40 mmol, 40 mmol, intravenous, PRN prochlorperazine (COMPAZINE) injection 5-10 mg, 5-10 mg, intravenous, Q6H PRN prochlorperazine (COMPAZINE) tablet 5-10 mg, 5-10 mg, oral, Q6H PRN rOPINIRole (REQUIP) tablet 0.5 mg, 0.5 mg, oral, QPM sodium chloride (NS) 0.9 % bolus 1,000 mL, 1,000 mL, intravenous, PRN sodium phosphate IV 30 mmol, 30 mmol, intravenous, PRN sodium phosphate IV 40 mmol, 40 mmol, intravenous, PRN tacrolimus capsule 1 mg, 1 mg, oral, BID (08 and 18) triamcinolone acetonide (KENALOG) 0.1 % ointment, , topical, BID PRN ursodiol (ACTIGALL) tablet 500 mg, 500 mg, oral, BID valACYclovir (VALTREX) tablet 500 mg, 500 mg, oral, BID aBest patel PA-C ,[facility] - 07/11/2019 1:02 PM PST Daily GISSEL Note - Transplant Ad[facility] Attending: Aniya Banks MD [facility] Physician: Sejal De La Torre DO PCP: LACY Perez Date of Admission: 07/07/19 Hematologic Malignancy: MDS Conditioning regimen: FluCyTBI Date of transplant: 04/22/2019 Donor: CBU 1: [id number] match, CBU 2: [id number] match Reason for admission: N/V/D, w/u for GI GVHD 24 hour events/plans: -MDS: s/p FluCyTBI cord blood transplant (on [facility] Trial), currently day +80 -IST: tacrolimus (goal 5-15) -Anemia: 2/2 recent transplant and donor/recipient ABO mismatch. Standard transfusion para meters (higher crit threshold in clinic but keeping standard inpt). -Diarrhea, ?GI GVHD: initially presented with rash and nausea on 06/24 in clinic. Started topical agents for rash and planned for beclomethasone but was not started d/t insurance iss ues. On 07/07 she was again seen in clinic with worsening abdominal cramping and diarrhea. CT A/P shows diffuse colitis. GI consulted and underwent EGD/flex sig on 07/08. C.Diff , GI P th panel neg. 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 -Continue triamcinolone cream BID PRN + HD Steroids above -RLL PNA: incidental finding on CT A/P in ED. Dedicated CT chest on 07/08 confirmed RLL nod ular infiltrate. ID consulted on 07/09 and do not feel abx are indicated as this is most lik jin fungal process. Cr Ag neg, galactomannan PENDING. -Pulm following: s/p BAL 07/11 PENDING -F/u posa level from 07/10 -ID following: increase Posa to 400mg daily until BAL results -Insomnia: exacerbated by steroids, Zyprexa 2.5 mg qHS, started 07/10 -Lytes: standard repletion parameters. Requires potassium and magnesium today. Subjective: Feeling better today - a little groggy from bronch but otherwise fine Objective: Last Vitals: BP 148/68 | Pulse 54 | Temp 37.1 C (98.8 F) (Tympanic) | Resp 12 | Ht 1.568 m (5' 1.73") | Wt 56.2 kg (124 lb) | SpO2 95% | BMI 22.88 kg/m | BSA 1.56 m 24 Hour Vital Min/Max: Systolic (24hrs), Av , Min:116 , Max:178 Diastolic (24hrs), Av, Min:58, Max:145 Pulse Min: 52 Max: 101 Temp Min: 36.3 C (97.3 F) Max: 37.1 C (98.8 F) Resp Min: 11 Max: 20 SpO2 Min: 92 % Max: 98 % Intake/Output Summary (Last 24 hours) at 07/11/2019 1302 Last data filed at 07/11/2019 1252 Gross per 24 hour Intake 1676 ml Output 1590 ml Net 86 ml Physical Exam: General: This is a female in no acute distress. Sitting up in bed. HEENT: PERRL. Sclerae anicteric. Mucosa pink and moist without erythema or exudate. Skin: Very faint patchy erythema to upper back. Chest: Lungs clear to auscultation bilat. CV: RRR, no murmurs. Abdomen: S/NT/ND with NABS. No HSM appreciated. Extremities: Pulses strong and equal bilaterally. No c/c/e. Neuro: Alert and oriented x 3. Grossly nonfocal exam. CVC: 2L groshong without induration or inflammation. Laboratory Results: Recent Labs 07/09/19 0000 07/10/19 0012 07/10/19 1000 07/11/19 0002 NA 142 140 139 137 K 3.3* 2.9* 4.0 3.2* CL 109* 106 107 104 BICARB 23 25 26 27 BUN 10 8 9 10 CR 0.60 0.58* 0.62 0.60 GLU 138* 129* 112* 170* CA 8.5* 8.0* 8.1* 8.4* AST 9 11 -- 15 ALT 7 7 -- 9 AP 84 77 -- 87 TBILI 0.7 0.6 -- 0.5 TP 5.6* 5.4* -- 5.6* ALB 2.9* 3.0* -- 3.0* Recent Labs 07/09/19 0007 07/10/19 0012 07/11/19 0002 WBC 4.17 4.23 4.47 RBC 2.51* 2.44* 2.72* HB 7.0* 6.7* 7.6* HCT 23.3* 22.1* 25.1* PLT 206 126* 190 NEUTROPERC 75.6* 72.8* 75.4* LYMPHPERC 16.8* 18.0 15.9* MONOPERC 5.0 6.6 6.9 BASOPERC 0.0 0.2 0.2 EOSPERC 0.0* 0.0* 0.0* Meds: Reviewed on rounds, see current MAR for medication list SUMMARY OF PATIENT'S HOSPITALIZATION History of Present Illness: (from H&P) Analy Camarillo is a 53 year old female with 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 --December 2018- developed fevers up to 104. Work up neg for infection, but noted to have CBC s howing dropping counts. --Jun. Moved to [place] ([facility]) -- 10/07/18 showed normal chemistries, Bilirubin 1.4, hepatitis negative, ESR elevated at 17 4 with RA, RIOS C3/C4 negative. CBC showed WBC 2.4, Hb 10.8, Plt 166K, ANC 1529. 11/05/[address] Sequeira (medical oncology) . 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 Mild er ythroid hyperplasia and megakaryocytic atypia. Blast immunophenotype was positive for CD33, CD45 dim, CD34, CD15, CD117, CD 11c, MPO. -Cytogenetics were normal. -MDS and AML FISH panel was negative. -Gentrails negative for FLT3, NPM1, CEBPA, c-KIT, IDH1, IDH2, TP53. 12/24/2018- Vidaza however developed a rash to the SQ injection and missed D3, dexamethasone was added for D4-D7. 01/14-01/26/2019 admitted for zoster to [facility]. Vidaza held. 02/17/2019- seen at [facility] by Dr. De La Torre, no healthy siblings so cord blood is only option -consented to kyle "[id number]: A Multicenter, Randomized, Phase III Re gistration Trial of Transplantation of NiCord, Ex Vivo Expanded, UCB-derived, Stem and Pro genitor Cells, vs. Unmanipulated UCB for Patients With Hematological Malignancies". She was randomized to SOC arm. --02/21-03/01 C3 aza.Tolerated well without complications. --04/15-05/18/2019 admitted to [facility] for planned flu/cy/tbi conditioned UCB on [facility] study (SOC arm). 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 Hospitalization History: Hematology: #Hematologic Malignancy: MDS Conditioning Regimen: FluCyTBI -TBI 1200 cGy in 8 fractions with dose of 50cGy administered twice daily x 4 days -Fludarabine 25mg/m2 to be administered IV over 30 minutes on Day -7, -6, -5 -[place] 60mg/kg to be administered IV every 24 hours on Day -7, -6 -Cyclophosphamide 60mg/kg to be administered IV x 24 hours on Day -7, -6 Stem cell transplant -BMT Day: 04/22/2019 -Stem Cell product: tolerated stem cell product on 04/22/2019 without complications. CD 34 count = 0.07 x 10 6 per kg and 0.10 x 10 6 per kg Post-transplant: -Day +21 chimerism ordered per study: 100% donor #2 CD33, CD56, CD3 and CD19 insuffici ent for analysis -BM Bx to be completed on day +30, day +100, 6 months, and 1 year post-trans plant -Day +30 BMBX completed on 05/25 -Results: Hypocellular marrow (25%) with trilineage hematopo iesis. No increase in blasts, <2%. -Cytogenetics/FISH: normal female -VNTR: 100% donor #2 (female) -Genetrails: no prior mutations #Anemia: 2/2 recent transplant and donor/recipient ABO mismatch -See supportive care #Supportive Care: Growth Factor: not indicated Labs: Continue to check CBC daily Transfusion parameters: -Transfuse PRBCs for HCT <21% if asymptomatic OR <24% if symptomatic -Transfuse PPH for platelet count <10,000 sooner for s/s bleeding GVHD: #?GI GVHD: initially presented with rash and nausea on 06/24 in clinic. Started topical ag ents for rash and planned for beclomethasone but was not started d/t insurance issues. On she was again seen in clinic with worsening abdominal cramping and diarrhea. She was adm itted through the ED. CT A/P shows diffuse colitis. GI consulted and underwent EGD/flex sig on 07/08. C.Diff, GI path panel neg. Sxs improving with steroids. -F/u path -Methylpred 1 mg/kg/d (07/07- ), lower than standard dose recommended by outpatient BMT phys ician. 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 -Continue triamcinolone cream BID PRN and steroids as above. Prophylaxis/Treatment: Prophylaxis with tacrolimus and MMF per [place] protocol - Tacrolimus started D-3 (goal 5-15) -Tacrolimus 0.5 mg PO qPM -Tacrolimus 1.0 mg PO qAM -MMF given at a dose of 15 mg/kg TID D-3 to D+60 Acute GvHD Staging: Skin: stage 0 Gut: stage 1 (bx PENDING) Liver: stage 0 Overall Grade: II Kyle Sipmson phase 3 (IRB 10490) Acute GVHD Staging Complete on study visit days 7,14, 21, 28, 35, 42, 56, 70, 100, 180 aGVHD Staging Criteria: Rule of 9:arm 9%; head 18%; palm 1%; leg 18%; anterior chest 18%; posterior chest 18%; carlton meka 1%. Stage Skin/Rash Liver (Tbili mg/dL) Upper GI Lower GI 1 <25% BSA 2-3 mg/dL Persistent anorexia, nausea, or vomiting 500-1000 mL diarrhea/day 2 25-50% BSA 3.1-6 mg/dL 5004-7042 mL diarrhea/day 3 >50% BSA Generalized erythroderma 6.1-15 mg/dL >1500 mL diarrhea/day 4 Generalized erythroderma with bullus formation >15 mg/dL Severe abdominal pain with/without ileus Determine Differential Diagnosis: (Y/N): GVHD:y Drug Reaction: n Conditioning regimen toxicity:N Infection:N Other (describe): Engraftment vs drug rash (Cefepime) (Y/N): GVHD:N Drug Reaction:N Conditioning regimen toxicity:N TPN:N Infection:N Other (describe): N/A (Y/N): GVHD:N Drug Reaction:N Conditioning regimen toxicity:Y TPN:N Infection:N Other (describe):N/A (Y/N): GVHD:? Drug Reaction:n Conditioning regimen toxicity:n TPN:N Infection: ? Other (describe):N Complete Values: BSA%:18% (faint anterior chest only) Bullae (Y/N):N TBili: 0.7 24H Diarrhea Vol: 200 Severe abd pain (Y/N):N Ileus (Y/N):N Assign Stage: 1 0 0 1 Presumptive/ Confirmed Dx of aGVHD? (Y/N) N N N N Pulmonary: Pretransplant PFTs completed on 03/10/19 showed FEV1 of 76% predicted, FVC of 87% predicted and adjusted DLCO of 77% predicted. #RLL PNA: see ID section below Cardiovascular: Pretransplant TTE completed on 03/10/2019 showed a LVEF of 64%. No acute issues GI: #Nausea, diarrhea, abdominal cramping: see GVHD section above -PRN antiemetics -PRN imodium #Risk of gastritis: -Omeprazole daily #Risk for VOD: no e/o this currently -Ursodiol 500 mg PO BID /Renal: No acute issues Psych: #Insomnia: exacerbated by steroids -Zyprexa 2.5 mg qHS, started 07/10 #RLS -Requip 0.5 mg qHS, increased on 06/13 #Depression: -Lexapro 20 mg PO daily Infectious Disease: #Herpes Zoster, recent history: Noted in December, now s/p treatment with IV acyclovirfrom approx 01/10 through 01/16 then transitioned to valacyclovir 1g TID to complete an additional 7dcourse (extended for new lesions).She will continue on valacyclovir(rather than acyc lovir)through day +365 post transplant. -Valacyclovir 500mg BID #RLL PNA: incidental finding on CT A/P in ED. Dedicated CT chest on 07/08 confirmed RLL nod ular infiltrate. ID consulted on 07/09 and do not feel abx are indicated as this is most lik jin fungal process. Cr Ag neg, galactomannan PENDING. -Pulm following: s/p BAL 07/11 PENDING -F/u posa level from 07/10 -ID following: increase Posa to 400mg daily until BAL results #Prophylaxis: Bacterial: see above Fungal: Posaconazole, level adequate at 0.7 on 04/28, repeat level 07/10 PENDING Viral: Valacyclovir CMV: Letermovir dc'd, per ID not indicated at this time PCP: Dapsone dc'd on 07/08 as may be contributing to elevated retic count/anemia, pentamidin e given on 07/09 Toxo: Pt is toxo negative, no further testing required. #Routine infectious disease testing -CMV by PCR twice weekly, starting after day 0. 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 #Fluid: 1L NS bolus for PO intake <2L/day #Lytes: Continue to check chemistries daily. Replace per supportive care protocol. Disposition: TBD Best Calabrese PA-C, GREG [address] Mailcode: [place] [address] anning, LACY Herrera - 07/10/2019 1:21 PM PST Daily GISSEL Note - Transplant [facility] Attending: Aniya Banks MD [facility] Physician: Sejal De La Torre DO PCP: LACY Perez Date of Admission: 07/07/19 Hematologic Malignancy: MDS Conditioning regimen: FluCyTBI Date of transplant: 04/22/2019 Donor: CBU 1: [id number]/02 match, CBU 2: [id number]/02 match Reason for admission: N/V/D, w/u for GI GVHD 24 hour events/plans: -MDS: s/p FluCyTBI cord blood transplant (on [facility] Trial), currently day +79 -IST: tacrolimus (goal 5-15) -Anemia: 2/2 recent transplant and donor/recipient ABO mismatch. Standard transfusion para meters (higher crit threshold in clinic but keeping standard inpt). There is no blood produ ct support required at this time. -Diarrhea, ?GI GVHD: initially presented with rash and nausea on 06/24 in clinic. Started topical agents for rash and planned for beclomethasone but was not started d/t insurance iss ues. On 07/07 she was again seen in clinic with worsening abdominal cramping and diarrhea. S he was admitted through the ED. CT A/P shows diffuse colitis. GI consulted and underwent EG D/flex sig on 07/08. C.Diff , GI Pth panel neg. Stool volume fairly low and abdominal cramp ing improved. -F/u path -Methylpred 1 mg/kg/d (07/07- ), lower than standard dose recommended by outpatient BMT phys ician. 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 Ayush nue triamcinolone cream BID PRN and steroids as above. -RLL PNA: incidental finding on CT A/P in ED. Dedicated CT chest on 07/08 confirmed RLL nod ular infiltrate. ID consulted on 07/09 and do not feel abx are indicated as this is most lik jin fungal process. Cr Ag neg, galactomannan PENDING. -Consulted pulmonary and plan for BAL on 07/11. -F/u posa level from 07/10 -Insomnia: exacerbated by steroids, Zyprexa 2.5 mg qHS, started 07/10 -Lytes: standard repletion parameters. Requires potassium and magnesium today. Subjective: Feeling better with less abdominal cramping. Stool volume low but still with s ome frequency. Objective: Last Vitals: BP 150/66 (BP Location: Right upper arm, Patient Position: Lying on back) | P ulse 59 | Temp 36.8 C (98.2 F) (Oral) | Resp 16 | Ht 1.568 m (5' 1.73") | Wt 56.2 kg (124 lb) | SpO2 94% | BMI 22.88 kg/m | BSA 1.56 m 24 Hour Vital Min/Max: Systolic (24hrs), Av , Min:103 , Max:151 Diastolic (24hrs), Av, Min:61, Max:70 Pulse Min: 57 Max: 84 Temp Min: 36.7 C (98.1 F) Max: 37.1 C (98.8 F) Resp Min: 16 Max: 18 SpO2 Min: 93 % Max: 96 % Intake/Output Summary (Last 24 hours) at 07/10/2019 1321 Last data filed at 07/10/2019 1037 Gross per 24 hour Intake 2405 ml Output 3280 ml Net -875 ml Physical Exam: General: This is a female in no acute distress. Sitting up in bed. HEENT: PERRL. Sclerae anicteric. Mucosa pink and moist without erythema or exudate. Skin: Very faint patchy erythema to upper back. Chest: Lungs clear to auscultation bilat. CV: RRR, no murmurs. Abdomen: S/NT/ND with NABS. No HSM appreciated. Extremities: Pulses strong and equal bilaterally. No c/c/e. Neuro: Alert and oriented x 3. Grossly nonfocal exam. CVC: 2L groshong without induration or inflammation. Laboratory Results: Recent Labs 07/08/19 0001 07/09/19 0000 07/10/19 0012 07/10/19 1000 NA 138 142 140 139 K 4.1 3.3* 2.9* 4.0 CL 109* 109* 106 107 BICARB 23 23 25 26 BUN 5* 10 8 9 CR 0.55* 0.60 0.58* 0.62 GLU 137* 138* 129* 112* CA 8.2* 8.5* 8.0* 8.1* AST 8 9 11 -- ALT <6 7 7 -- AP 96 84 77 -- TBILI 0.6 0.7 0.6 -- TP 5.7* 5.6* 5.4* -- ALB 2.9* 2.9* 3.0* -- Recent Labs 07/08/19 0001 07/09/19 0007 07/10/19 0012 WBC 4.02 4.17 4.23 RBC 2.54* 2.51* 2.44* HB 7.1* 7.0* 6.7* HCT 23.1* 23.3* 22.1* PLT 198 206 126* NEUTROPERC 91.0* 75.6* 72.8* LYMPHPERC 6.0* 16.8* 18.0 MONOPERC 1.0* 5.0 6.6 BASOPERC 0.0 0.0 0.2 EOSPERC 1.0 0.0* 0.0* Meds: Reviewed on rounds, see current MAR for medication list SUMMARY OF PATIENT'S HOSPITALIZATION History of Present Illness: (from H&P) Analy Camarillo is a 53 year old female with 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 --December 2018- developed fevers up to 104. Work up neg for infection, but noted to have CBC s howing dropping counts. --Jun. Moved to [place] ([facility]) -- 10/07/18 showed normal chemistries, Bilirubin 1.4, hepatitis negative, ESR elevated at 17 4 with RA, RIOS C3/C4 negative. CBC showed WBC 2.4, Hb 10.8, Plt 166K, ANC 1529. 11/05/[address] Sequeira (medical oncology) . 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 Mild er ythroid hyperplasia and megakaryocytic atypia. Blast immunophenotype was positive for CD33, CD45 dim, CD34, CD15, CD117, CD 11c, MPO. -Cytogenetics were normal. -MDS and AML FISH panel was negative. -Gentrails negative for FLT3, NPM1, CEBPA, c-KIT, IDH1, IDH2, TP53. 12/24/2018- Vidaza however developed a rash to the SQ injection and missed D3, dexamethasone was added for D4-D7. 01/14-01/26/2019 admitted for zoster to [facility]. Vidaza held. 02/17/2019- seen at [facility] by Dr. De La Torre, no healthy siblings so cord blood is only option -consented to kyle "[id number]: A Multicenter, Randomized, Phase III Re gistration Trial of Transplantation of NiCord, Ex Vivo Expanded, UCB-derived, Stem and Pro genitor Cells, vs. Unmanipulated UCB for Patients With Hematological Malignancies". She was randomized to SOC arm. --02/21-03/01 C3 aza.Tolerated well without complications. --04/15-05/18/2019 admitted to [facility] for planned flu/cy/tbi conditioned UCB on Gamida study (SOC arm). 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 Hospitalization History: Hematology: #Hematologic Malignancy: MDS Conditioning Regimen: FluCyTBI -TBI 1200 cGy in 8 fractions with dose of 50cGy administered twice daily x 4 days -Fludarabine 25mg/m2 to be administered IV over 30 minutes on Day -7, -6, -5 -[place] 60mg/kg to be administered IV every 24 hours on Day -7, -6 -Cyclophosphamide 60mg/kg to be administered IV x 24 hours on Day -7, -6 Stem cell transplant -BMT Day: 04/22/2019 -Stem Cell product: tolerated stem cell product on 04/22/2019 without complications. CD 34 count = 0.07 x 10 6 per kg and 0.10 x 10 6 per kg Stem Cell Day: +79 Post-transplant: -Day +21 chimerism ordered per study: 100% donor #2 CD33, CD56, CD3 and CD19 insuffici ent for analysis -BM Bx to be completed on day +30, day +100, 6 months, and 1 year post-trans plant -Day +30 BMBX completed on 05/25 -Results: Hypocellular marrow (25%) with trilineage hematopo iesis. No increase in blasts, <2%. -Cytogenetics/FISH: normal female -VNTR: 100% donor #2 (female) -Genetrails: no prior mutations #Anemia: 2/2 recent transplant and donor/recipient ABO mismatch -See supportive care #Supportive Care: Growth Factor: not indicated Labs: Continue to check CBC daily Transfusion parameters: -Transfuse PRBCs for HCT <21% if asymptomatic OR <24% if symptomatic -Transfuse PPH for platelet count <10,000 sooner for s/s bleeding GVHD: #?GI GVHD: initially presented with rash and nausea on 06/24 in clinic. Started topical ag ents for rash and planned for beclomethasone but was not started d/t insurance issues. On she was again seen in clinic with worsening abdominal cramping and diarrhea. She was adm itted through the ED. CT A/P shows diffuse colitis. GI consulted and underwent EGD/flex sig on 07/08. C.Diff, GI path panel neg. Sxs improving with steroids. -F/u path -Methylpred 1 mg/kg/d (07/07- ), lower than standard dose recommended by outpatient BMT phys ician. 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 -Continue triamcinolone cream BID PRN and steroids as above. Prophylaxis/Treatment: Prophylaxis with tacrolimus and MMF per [facility] protocol - Tacrolimus started D-3 (goal 5-15) -Tacrolimus 0.5 mg PO qPM -Tacrolimus 1.0 mg PO qAM -MMF given at a dose of 15 mg/kg TID D-3 to D+60 Acute GvHD Staging: Skin: stage 0 Gut: stage 1 (bx PENDING) Liver: stage 0 Overall Grade: II Kyle Simpson phase 3 (IRB 72884) Acute GVHD Staging Complete on study visit days 7,14, 21, 28, 35, 42, 56, 70, 100, 180 aGVHD Staging Criteria: Rule of 9:arm 9%; head 18%; palm 1%; leg 18%; anterior chest 18%; posterior chest 18%; carlton meka 1%. Stage Skin/Rash Liver (Tbili mg/dL) Upper GI Lower GI 1 <25% BSA 2-3 mg/dL Persistent anorexia, nausea, or vomiting 500-1000 mL diarrhea/day 2 25-50% BSA 3.1-6 mg/dL 5825-0227 mL diarrhea/day 3 >50% BSA Generalized erythroderma 6.1-15 mg/dL >1500 mL diarrhea/day 4 Generalized erythroderma with bullus formation >15 mg/dL Severe abdominal pain with/without ileus Determine Differential Diagnosis: (Y/N): GVHD:y Drug Reaction: n Conditioning regimen toxicity:N Infection:N Other (describe): Engraftment vs drug rash (Cefepime) (Y/N): GVHD:N Drug Reaction:N Conditioning regimen toxicity:N TPN:N Infection:N Other (describe): N/A (Y/N): GVHD:N Drug Reaction:N Conditioning regimen toxicity:Y TPN:N Infection:N Other (describe):N/A (Y/N): GVHD:? Drug Reaction:n Conditioning regimen toxicity:n TPN:N Infection: ? Other (describe):N Complete Values: BSA%:18% (faint anterior chest only) Bullae (Y/N):N TBili: 0.7 24H Diarrhea Vol: 200 Severe abd pain (Y/N):N Ileus (Y/N):N Assign Stage: 1 0 0 1 Presumptive/ Confirmed Dx of aGVHD? (Y/N) N N N N Pulmonary: Pretransplant PFTs completed on 03/10/19 showed FEV1 of 76% predicted, FVC of 87% predicted and adjusted DLCO of 77% predicted. #RLL PNA: see ID section below Cardiovascular: Pretransplant TTE completed on 03/10/2019 showed a LVEF of 64%. No acute issues GI: #Nausea, diarrhea, abdominal cramping: see GVHD section above -PRN antiemetics -PRN imodium #Risk of gastritis: -Omeprazole daily #Risk for VOD: no e/o this currently -Ursodiol 500 mg PO BID /Renal: No acute issues Psych: #Insomnia: exacerbated by steroids -Zyprexa 2.5 mg qHS, started 07/10 #RLS -Requip 0.5 mg qHS, increased on 06/13 #Depression: -Lexapro 20 mg PO daily Infectious Disease: #Herpes Zoster, recent history: Noted in December, now s/p treatment with IV acyclovirfrom approx 01/10 through 01/16 then transitioned to valacyclovir 1g TID to complete an additional 7dcourse (extended for new lesions).She will continue on valacyclovir(rather than acyc lovir)through day +365 post transplant. -Valacyclovir 500mg BID #RLL PNA: incidental finding on CT A/P in ED. Dedicated CT chest on 07/08 confirmed RLL nod ular infiltrate. ID consulted on 07/09 and do not feel abx are indicated as this is most lik jin fungal process. Cr Ag neg, galactomannan PENDING. -Consulted pulmonary and plan for BAL on 07/11 -Recent posa level borderline, repeat on 07/10 #Prophylaxis: Bacterial: see above Fungal: Posaconazole, level adequate at 0.7 on 04/28, repeat level 07/10 PENDING Viral: Valacyclovir CMV: Letermovir dc'd, per ID not indicated at this time PCP: Dapsone dc'd on 07/08 as may be contributing to elevated retic count/anemia, pentamidin e given on 07/09 Toxo: Pt is toxo negative, no further testing required. #Routine infectious disease testing -CMV by PCR twice weekly, starting after day 0. 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 #Fluid: 1L NS bolus for PO intake <2L/day #Lytes: Continue to check chemistries daily. Replace per supportive care protocol. Disposition: TBD LACY Rutledge [facility] [id number] Mailcode: [id number] [place] [id number] Aniya Cortes MD - 07/10/2019 11:10 AM PST Hematologic Malignancies/Bone Marrow Transplant Inpatient Attending Progress Note: Hospital course summary: Analy Camarillo is a 53 y.o. female with MDS s/p Flu/Cy/TBI followed by double cord bloo d transplant on 04/22/19 who was admitted with diarrhea, worsening abdominal pain, concern f or GVHD vs. Infection. She was started empirically on 1mg/kg/day of steroids. She previo usly had a skin rash, which improved with topical agents. She is s/p endoscopy on 0, biopsy results pending. I rounded today, 07/10/2019, in conjunction with the Advanced Practice Provider Apple flannery. I saw the patient, reviewed the history and relevant studies and developed an assessment an d plan. Subjective: Analy says she is feeling pretty well today. She says she ate a few things from the stage II diet yesterday, but there is not much that she likes on that menu. Food felt good, it e ased the churning in her stomach, and did not lead to worsened lower GI cramping. She says she has an appetite, and is glad her diet will be liberalized. In terms of her lung nodule, she says she is coughing rarely. Denies fevers. Was seen by pulmonology today, is waiting to hear if they think a bronchoscopy is appropriate. Objective: Last Vitals: BP 150/66 (BP Location: Right upper arm, Patient Position: Lying on back) | P ulse 59 | Temp 36.8 C (98.2 F) (Oral) | Resp 16 | Ht 1.568 m (5' 1.73") | Wt 56.2 kg (124 lb) | SpO2 94% | BMI 22.88 kg/m | BSA 1.56 m Gen: sitting up in bed, NAD HEENT: no oral lesions Lungs: CTA bilaterally CVS: RRR Abd: soft, NT Skin: no rash Ext: no pitting edema Brief Assessment and Plan: - MDS: Now s/p FluCyTBI conditioned double cord transplant (on the [facility] trial randomized to SOC), currently day + 79. Her day +60 BMBx obtained 05/25 showed a hypocellular marrow with in increase in blasts. CHimerisms with 100% donor CD33 and CD3+ cells. Her CBC shows persistent anemia likely secondary to ABO mismatch, and she is mildly thrombocytopenia. WBC and ANC WNL. Next BMBx at day +100 per the [facility] trial. - GVHD: Prophylaxis with tacrolimus and MMF per the [facility] trial. She presented with a ra sh on 06/24, topical steroids initiated with improvement in rash. Then developed diarrhea o n 07/07, she was admitted for GHVD work up. A CT A/P obtained 07/07 showed diffuse colitis, and she is now s/p flex sig on 07/08, biopsy results pending. She was started on 1 mg/kg prednis one with some improvement in her symptoms. GVHD stage I gut at worst. Will continue steroi ds at current dose until pathology from flex sig has returned. Remains on therapeutic tacro limus. Advance diet as stool output < 1L. - methylprednisolone 1 mg/kg started 07/07 - tacrolimus goal 5-15 - advance diet to GVHD 3 - Pulmonary nodule: Incidental finding after CT abdomen obtained for GVHD. CT chest from 07/09 confrimed a RML / RLL nodular infiltrate. ID was consulted, they did not think antibio tics were indicated as imaging more concerning for a fungal process. She is on posaconazole , trough level pending. Pulmonology has been consulted, they are considering bronchoscopy f or diagnosis vs referral to CT surgery. Will await their recommendations. - continue posaconazole - possible bronchoscopy - Herpes Zoster: History of disseminated zoster in December 2018, she is s/p treatment with IV acyclovir from 01/10 - 01/16. She will be treated with valacyclovir rather than acyclovir fo r HSV prophylaxis. - At risk for VOD: Continue ursodiol - ursodiol 500 mg PO BID - Pancytopenia: Secondary to chemotherapy, stem cell transplant. Standard transfusion par ameters as below: - transfuse 1 unit PRBC for hct < 21 - transfuse 1 unit platelets for plt < 10k ID Prophylaxis: Bacterial: n/a Fungal: Posaconazole, level adequate at 0.7 on 04/28, repeat level 07/10 PENDING Viral: Valacyclovir CMV: Letermovir dc'd, per ID not indicated at this time PCP: Dapsone dc'd on 07/08 as may be contributing to elevated retic count/anemia, pentamidin e given on 07/09 Toxo: Pt is toxo negative, no further testing required. I have updated the problem list to reflect those problems being actively managed. 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 Aniya Banks MD Vitals: 24 Hour Vital Min/Max: Systolic (24hrs), Av , Min:103 , Max:151 Diastolic (24hrs), Av, Min:61, Max:70 Pulse Min: 57 Max: 84 Temp Min: 36.7 C (98.1 F) Max: 37.1 C (98.8 F) Resp Min: 16 Max: 18 SpO2 Min: 93 % Max: 96 % Intake/Output Summary (Last 24 hours) at 07/10/2019 1110 Last data filed at 07/10/2019 1037 Gross per 24 hour Intake 2415 ml Output 3280 ml Net -865 ml Labs: CBC with diff last 72 hours (or 3 results) - Refreshable Recent Labs 07/08/19 0001 07/09/19 0007 07/10/19 0012 WBC 4.02 4.17 4.23 HB 7.1* 7.0* 6.7* HCT 23.1* 23.3* 22.1* PLT 198 206 126* NEUTROPERC 91.0* 75.6* 72.8* LYMPHPERC 6.0* 16.8* 18.0 MONOPERC 1.0* 5.0 6.6 BASOPERC 0.0 0.0 0.2 EOSPERC 1.0 0.0* 0.0* Lab Results Component Value Date NA 140 07/10/2019 K 2.9 07/10/2019 CL 106 07/10/2019 BICARB 25 07/10/2019 BUN 8 07/10/2019 EGFRAFRICAN >60 07/10/2019 EGFRNONAFR >60 07/10/2019 CR 0.58 07/10/2019 GLU 129 07/10/2019 CA 8.0 07/10/2019 ANIONGAP 9 07/10/2019 ANIONALBCOR 11 07/10/2019 Lab Results Component Value Date AST 11 07/10/2019 ALT 7 07/10/2019 TBILI 0.6 07/10/2019 AP 77 07/10/2019 TP 5.4 07/10/2019 ALB 3.0 07/10/2019 Medications: acetaminophen (TYLENOL) tablet 650 mg, 650 mg, oral, Q4H PRN escitalopram oxalate (LEXAPRO) tablet 20 mg, 20 mg, oral, DAILY magnesium sulfate in water IV (RTU) 4 g, 4 g, intravenous, PRN magnesium sulfate IV 8 g, 8 g, intravenous, PRN methylPREDNISolone sod succ (SOLU-MEDROL) injection 30 mg, 30 mg, intravenous, BID omeprazole (PRILOSEC) capsule 40 mg, 40 mg, oral, DAILY ondansetron (ZOFRAN) injection, , , ondansetron (ZOFRAN) tablet 8 mg, 8 mg, oral, Q12H PRN posaconazole DR (NOXAFIL) tablet 300 mg, 300 mg, oral, DAILY potassium chloride IV (central line) 40 mEq, 40 mEq, intravenous, PRN OR potassium chlo ride IV (central line) 60 mEq, 60 mEq, intravenous, PRN potassium chloride SR (K-DUR) tablet 40 mEq, 40 mEq, oral, PRN potassium phosphate IV (CENTRAL LINE) 30 mmol, 30 mmol, intravenous, PRN OR potassium p hosphate IV (CENTRAL LINE) 40 mmol, 40 mmol, intravenous, PRN prochlorperazine (COMPAZINE) injection 5-10 mg, 5-10 mg, intravenous, Q6H PRN prochlorperazine (COMPAZINE) tablet 5-10 mg, 5-10 mg, oral, Q6H PRN rOPINIRole (REQUIP) tablet 0.5 mg, 0.5 mg, oral, QPM sodium phosphate IV 30 mmol, 30 mmol, intravenous, PRN sodium phosphate IV 40 mmol, 40 mmol, intravenous, PRN tacrolimus capsule 1 mg, 1 mg, oral, BID ( and 18) triamcinolone acetonide (KENALOG) 0.1 % ointment, , topical, BID PRN ursodiol (ACTIGALL) tablet 500 mg, 500 mg, oral, BID valACYclovir (VALTREX) tablet 500 mg, 500 mg, oral, BID anning, LACY Herrera - 07/09/2019 8:17 AM PST Daily GISSEL Note - Transplant Admit [facility] Attending: Safia Rooney MD [facility] Physician: Sejal De La Torre DO PCP: LACY Perez Date of Admission: 07/07/19 Hematologic Malignancy: MDS Conditioning regimen: FluCyTBI Date of transplant: 04/22/2019 Donor: CBU 1: [id number]/02 match, CBU 2: [id number]/02 match Reason for admission: N/V/D, w/u for GI GVHD 24 hour events/plans: -MDS: admitted for FluCyTBI (on [facility]ida Trial), currently day +78 -IST: tacrolimus (goal 5-15) -Hemolytic anemia: retic count elevated and may be 2/2 dapsone. Dc'd and given dose of pen tamidine for PJP prophy. -Diarrhea, ?GI GVHD: initially presented with rash and nausea on 06/24 in clinic. Started topical agents for rash and planned for beclomethasone but was not started d/t insurance iss ues. On 07/07 she was again seen in clinic with worsening abdominal cramping and diarrhea. S he was admitted through the ED. CT A/P shows diffuse colitis. GI consulted and underwent EG D/flex sig on 07/08. C.Diff neg. Has had very little stool output since admission. -F/u path -F/u GI path panel -Methylpred 1 mg/kg/d (07/07- ), lower than standard dose recommended by outpatient BMT phys ician. 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 Ayush nue triamcinolone cream BID PRN and steroids as above. -RLL PNA: incidental finding on CT A/P in ED. Dedicated CT chest on 07/08 confirmed RLL nod ular infiltrate. ID consulted on 07/09 and do not feel abx are indicated as this is most lik jin fungal process. Cr Ag neg, galactomannan PENDING. -Consulted pulmonary for possible BAL. -Lytes: standard repletion parameters. None needed today. Subjective: Feeling better overall with decreased abdominal cramping and stool output. Agrawal s have a cough that is worse at night. Objective: Last Vitals: BP 128/65 (BP Location: Right upper arm, Patient Position: Lying on back) | P ulse 72 | Temp 37.1 C (98.8 F) (Oral) | Resp 16 | Ht 1.568 m (5' 1.73") | Wt 57.5 kg (126 lb 11.2 oz) | SpO2 94% | BMI 23.38 kg/m | BSA 1.58 m 24 Hour Vital Min/Max: Systolic (24hrs), Av , Min:128 , Max:164 Diastolic (24hrs), Av, Min:47, Max:104 Pulse Min: 55 Max: 80 Temp Min: 36.5 C (97.7 F) Max: 37.1 C (98.8 F) Resp Min: 9 Max: 20 SpO2 Min: 93 % Max: 98 % Intake/Output Summary (Last 24 hours) at 07/09/2019 1441 Last data filed at 07/09/2019 1400 Gross per 24 hour Intake 3945 ml Output 4150 ml Net -205 ml Physical Exam: General: This is a female in no acute distress. Sitting up in bed. HEENT: PERRL. Sclerae anicteric. Mucosa pink and moist without erythema or exudate. Skin: Very faint patchy erythema to upper back. Chest: Lungs clear to auscultation bilat. CV: RRR, no murmurs. Abdomen: S/mild generalized tenderness/ND with NABS. No HSM appreciated. Extremities: Pulses strong and equal bilaterally. No c/c/e. Neuro: Alert and oriented x 3. Grossly nonfocal exam. CVC: 2L groshong without induration or inflammation. Laboratory Results: Recent Labs 07/07/19 1725 07/08/19 0001 07/09/19 0000 NA 138 138 142 K 4.1 4.1 3.3* CL 110* 109* 109* BICARB 20* 23 23 BUN 7 5* 10 CR 0.64 0.55* 0.60 GLU 184* 137* 138* CA 8.0* 8.2* 8.5* AST 7 8 9 ALT 7 <6 7 AP 99* 96 84 TBILI 0.7 0.6 0.7 TP 5.7* 5.7* 5.6* ALB 2.9* 2.9* 2.9* Recent Labs 07/07/19 1725 07/08/19 0001 07/09/19 0007 WBC 4.41 4.02 4.17 RBC 2.61* 2.54* 2.51* HB 7.2* 7.1* 7.0* HCT 23.9* 23.1* 23.3* PLT 123* 198 206 NEUTROPERC 80.3* 91.0* 75.6* LYMPHPERC 13.2* 6.0* 16.8* MONOPERC 2.7* 1.0* 5.0 BASOPERC 0.2 0.0 0.0 EOSPERC 1.8 1.0 0.0* Meds: Reviewed on rounds, see current MAR for medication list SUMMARY OF PATIENT'S HOSPITALIZATION History of Present Illness: (from H&P) Analy Camarillo is a 53 year old female with 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 --December 2018- developed fevers up to 104. Work up neg for infection, but noted to have CBC s howing dropping counts. --Jun. Moved to [place] ([facility]) -- 10/07/18 showed normal chemistries, Bilirubin 1.4, hepatitis negative, ESR elevated at 17 4 with RA, RIOS C3/C4 negative. CBC showed WBC 2.4, Hb 10.8, Plt 166K, ANC 1529. 11/05/[address] Sequeira (medical oncology) . 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 Mild er ythroid hyperplasia and megakaryocytic atypia. Blast immunophenotype was positive for CD33, CD45 dim, CD34, CD15, CD117, CD 11c, MPO. -Cytogenetics were normal. -MDS and AML FISH panel was negative. -Gentrails negative for FLT3, NPM1, CEBPA, c-KIT, IDH1, IDH2, TP53. 12/24/2018- Vidaza however developed a rash to the SQ injection and missed D3, dexamethasone was added for D4-D7. 01/14-01/26/2019 admitted for zoster to [facility]. Vidaza held. 02/17/2019- seen at [facility] by Dr. De La Torre, no healthy siblings so cord blood is only option -consented to jeanlavelle "[id number]: A Multicenter, Randomized, Phase III Re gistration Trial of Transplantation of NiCord, Ex Vivo Expanded, UCB-derived, Stem and Pro genitor Cells, vs. Unmanipulated UCB for Patients With Hematological Malignancies". She was randomized to SOC arm. --02/21-03/01 C3 aza.Tolerated well without complications. --04/15-05/18/2019 admitted to [facility] for planned flu/cy/tbi conditioned UCB on Kyle study (SOC arm). 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 Hospitalization History: Hematology: #Hematologic Malignancy: MDS Conditioning Regimen: FluCyTBI -TBI 1200 cGy in 8 fractions with dose of 50cGy administered twice daily x 4 days -Fludarabine 25mg/m2 to be administered IV over 30 minutes on Day -7, -6, -5 -[place] 60mg/kg to be administered IV every 24 hours on Day -7, -6 -Cyclophosphamide 60mg/kg to be administered IV x 24 hours on Day -7, -6 Stem cell transplant -BMT Day: 04/22/2019 -Stem Cell product: tolerated stem cell product on 04/22/2019 without complications. CD 34 count = 0.07 x 10 6 per kg and 0.10 x 10 6 per kg Stem Cell Day: +78 Post-transplant: -Day +21 chimerism ordered per study: 100% donor #2 CD33, CD56, CD3 and CD19 insuffici ent for analysis -BM Bx to be completed on day +30, day +100, 6 months, and 1 year post-trans plant -Day +30 BMBX completed on 05/25 -Results: Hypocellular marrow (25%) with trilineage hematopo iesis. No increase in blasts, <2%. -Cytogenetics/FISH: normal female -VNTR: 100% donor #2 (female) -Genetrails: no prior mutations #Anemia: Hemolytic process noted with retic count elevated, may be 2/2 dapsone. Dc'd and g iven dose of pentamidine for PJP prophy. -See supportive care #Supportive Care: Growth Factor: not indicated Labs: Continue to check CBC daily Transfusion parameters: -Transfuse PRBCs for HCT <21% if asymptomatic OR <24% if symptomatic -Transfuse PPH for platelet count <10,000 sooner for s/s bleeding GVHD: #?GI GVHD: initially presented with rash and nausea on 06/24 in clinic. Started topical ag ents for rash and planned for beclomethasone but was not started d/t insurance issues. On she was again seen in clinic with worsening abdominal cramping and diarrhea. She was adm itted through the ED. CT A/P shows diffuse colitis. GI consulted and underwent EGD/flex sig on 07/08. C.Diff neg. Has had very little stool output since admission. -F/u path -F/u GI path panel -Methylpred 1 mg/kg/d (07/07- ), lower than standard dose recommended by outpatient BMT phys ician. 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 -Continue triamcinolone cream BID PRN and steroids as above. Prophylaxis/Treatment: Prophylaxis with tacrolimus and MMF per [place] protocol - Tacrolimus started D-3 (goal 5-15) -Tacrolimus 0.5 mg PO qPM -Tacrolimus 1.0 mg PO qAM -MMF given at a dose of 15 mg/kg TID D-3 to D+60 Acute GvHD Staging: Skin: stage 1 (not bx proven) Gut: stage 1 (not bx proven) Liver: stage 0 Overall Grade: II Kyle Simpson phase 3 (IRB 55070) Acute GVHD Staging Complete on study visit days 7,14, 21, 28, 35, 42, 56, 70, 100, 180 aGVHD Staging Criteria: Rule of 9:arm 9%; head 18%; palm 1%; leg 18%; anterior chest 18%; posterior chest 18%; carlton meka 1%. Stage Skin/Rash Liver (Tbili mg/dL) Upper GI Lower GI 1 <25% BSA 2-3 mg/dL Persistent anorexia, nausea, or vomiting 500-1000 mL diarrhea/day 2 25-50% BSA 3.1-6 mg/dL 6967-2059 mL diarrhea/day 3 >50% BSA Generalized erythroderma 6.1-15 mg/dL >1500 mL diarrhea/day 4 Generalized erythroderma with bullus formation >15 mg/dL Severe abdominal pain with/without ileus Determine Differential Diagnosis: (Y/N): GVHD:y Drug Reaction: n Conditioning regimen toxicity:N Infection:N Other (describe): Engraftment vs drug rash (Cefepime) (Y/N): GVHD:N Drug Reaction:N Conditioning regimen toxicity:N TPN:N Infection:N Other (describe): N/A (Y/N): GVHD:N Drug Reaction:N Conditioning regimen toxicity:Y TPN:N Infection:N Other (describe):N/A (Y/N): GVHD:? Drug Reaction:n Conditioning regimen toxicity:n TPN:N Infection: ? Other (describe):N Complete Values: BSA%:18% (faint anterior chest only) Bullae (Y/N):N TBili: 0.7 24H Diarrhea Vol: 200 Severe abd pain (Y/N):N Ileus (Y/N):N Assign Stage: 1 0 0 1 Presumptive/ Confirmed Dx of aGVHD? (Y/N) N N N N Pulmonary: Pretransplant PFTs completed on 03/10/19 showed FEV1 of 76% predicted, FVC of 87% predicted and adjusted DLCO of 77% predicted. #RLL PNA: see ID section below Cardiovascular: Pretransplant TTE completed on 03/10/2019 showed a LVEF of 64%. No acute issues GI: #Nausea, diarrhea, abdominal cramping: see GVHD section above -PRN antiemetics -PRN imodium #Risk of gastritis: -Omeprazole daily #Risk for VOD: no e/o this currently -Ursodiol 500 mg PO BID /Renal: No acute issues Psych: #RLS -Requip 0.5 mg qHS, increased on 06/13 #Depression: -Lexapro 20 mg PO daily Infectious Disease: #Herpes Zoster, recent history: Noted in December, now s/p treatment with IV acyclovirfrom approx 01/10 through 01/16 then transitioned to valacyclovir 1g TID to complete an additional 7dcourse (extended for new lesions).She will continue on valacyclovir(rather than acyc lovir)through day +365 post transplant. -Valacyclovir 500mg BID #RLL PNA: incidental finding on CT A/P in ED. Dedicated CT chest on 07/08 confirmed RLL nod ular infiltrate. ID consulted on 07/09 and do not feel abx are indicated as this is most lik jin fungal process. Cr Ag neg, galactomannan PENDING. -Consulted pulmonary for possible BAL. -Recent posa level borderline, repeat on 07/10 #Prophylaxis: Bacterial: see above Fungal: Posaconazole, level adequate at 0.7 on 04/28, repeat level 07/10 PENDING Viral: Valacyclovir CMV: Letermovir dc'd, per ID not indicated at this time PCP: Dapsone dc'd on 07/08 as may be contributing to hemolysis, pentamidine given on 07/09 Toxo: Pt is toxo negative, no further testing required. #Routine infectious disease testing -CMV by PCR twice weekly, starting after day 0. Lab Results Component Value Date CMVQUANTPCR Undetected 07/07/2019 CMVQUANTPCR Undetected 07/01/2019 CMVQUANTPCR Undetected 06/28/2019 CMVQUANTPCR Undetected 06/21/2019 -HHV6 weekly: -EBV weekly: 07/07 undetected Fluid/Nutrition/Lytes: #Nutrition: Current diet -- GVHD stage 2 diet. #Fluid: not required at this time #Lytes: Continue to check chemistries daily. Replace per supportive care protocol. Disposition: TBD LACY Rutledge [facility] [id number] [facility] Mailcode: [id number] [place] [address] Radha Rosado MD - 07/09/2019 6:28 AM PST Hematologic Malignancies/Bone Marrow Transplant Inpatient Attending Progress Note: Hospital course summary: Analy Camarillo is a 53 y.o. female with MDS s/p Flu/Cy/TBI fol lowed by double cord blood transplant on 04/22/19 who was admitted with diarrhea, worsening abdominal pain, concern for GVHD vs. Infection. She was started empirically on 1mg/kg/day o f steroids. She previously had a skin rash, which improved with topical agents. She is s/p endoscopy on 07/08/2019. I rounded today, 07/09/2019, in conjunction with the Advanced Practice Provider. I saw the patient, reviewed the history and relevant studies and developed an assessment an d plan. Subjective/Objective: Ludmila Campuzano is doing well-no escalation in gut cramping or discomfort w ith drinking fluids. She still has a cough, with coughing fits at times. Exam notable for an interactive woman in NAD. OP moist, with reduced ROM, but without lesi ons or erythema. Heart RRR without murmurs. Lungs CTAB. Abd +BS, soft, NT, ND. Ext warm and without edema. Skin with erythematous, macular rash on upper back and chest-improved com pared to yesterday. Line without erythema or tenderness. Please see the Advanced Practice Provider documentation from today for the details regardin g the assessment and plan. I have reviewed and updated the problem list to reflect issues b eing followed and actively managing. Patient Active Problem List Diagnosis MDS (myelodysplastic syndrome) (HCC) Acute deep vein thrombosis (DVT) of both upper extremities (HCC) Immunocompromised state due to drug therapy Generalized abdominal pain Diarrhea, unspecified type S/P cord blood transplantation GVHD (graft versus host disease) (HCC) Skin rash Hypoalbuminemia due to protein-calorie malnutrition (HCC) Anemia Hyperglycemia Hypokalemia Lung infiltrate on CT Plan for today: 1. ID consult for lung infiltrate 2. F/u on biopsy from yesterday 3. Advance diet and follow tolerance. Radha Rooney MD So Ritchie MD - 07/08/2019 5:38 PM PSTBrief GI Procedure Note 07/08/2019 GI procedure performed. Procedure(s): EGD and Flex Sig Normal exam. Biopsies taken throughout to rule out GvHD. Await pathology (rushed) and defer to BMT service on ongoing care. Please refer to GI procedure note imported under Procedures tab in Chart Review for full de tails of procedure, impression and recommendations. Staff: America Drummond MD Gastroenterology Fellow Pager: [phone] Meryl Ritchie MD - 07/08/2019 3:44 PM PST Pre Sedation Endoscopy Note: MR# [id number] Subjective: Analy Camarillo is a 53 y.o. female who presents today for GI procedure. Patient History Reviewed Medications reviewed Allergies: Allergies as of 07/07/2019 - Fully Reviewed 07/07/2019 Allergen Reaction Noted Cefepime Rash 05/09/2019 Sulfa (sulfonamide antibiotics) Hives 12/02/2018 Airway Assessment: II ASA class 2E Pt NPO for 12 hrs. ROS: All others negative. Objective: Last Vitals: BP 125/55 (BP Location: Right upper arm) | Pulse 65 | Temp 36.3 C (97.3 F) | Resp 18 | Ht 1.568 m (5' 1.73") | Wt 57.5 kg (126 lb 12.2 oz) | SpO2 97% | BMI 23. 39 kg/m | BSA 1.58 m See exam documented in GI consult note from earlier today. No changes unless otherwise docu mented in this note. Impression Patient deemed appropriate candidate for planned procedure and sedation. Plan Proceed with GI procedure PARQ held and all questions addressed. Consent obtained. See procedure note 07/08/2019 So Drummond MD Gastroenterology Fellow Pager: [phone] documented in this encou nter H&P Notes Yifan Young MD - 07/07/2019 9:13 PM PSTFormatting of this note might be different f rom the original. [facility] Attending: Olya Steven MD [facility] Physician: Sejal De La Torre DO PCP: LACY Perez Date of Admission: 07/07/2019 Local oncologist: Dr. Sequeira Hematologic Malignancy: MDS Conditioning regimen: FluCyTBI Date of transplant: 04/22/2019 Donor: CBU 1: [id number]/02 match, CBU 2: [id number]/02 match Research study:Kyle "[id number]: A Multicenter, Randomized, Phase III Registration T rial of Transplantation of NiCord, Ex Vivo Expanded, UCB-derived, Stem and Progenitor Cell s, vs. Unmanipulated UCB for Patients With Hematological Malignancies". She was randomized t o SOC arm. Reason for Admission: diarrhea; abd pain; c/f GI GVHD. 07/07/19- Day +76 post transplant ID: Analy Camarillo is a 53 yo woman w/ 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 s/p s/p Flu/cy/TBI conditioned URD cord on gamida trial -on SOC arm (on tacrolimus), prior bilateral upper extremity PICC -line associated DVT (01/17/2019) s/p 3 months apixaban (completed 04/14/2019), HTN, RLS, de pression, recent herpes zoster (s/p IV acyclovir 01/10-01/16/2019 -> valacyclovir) who is ad mitted for 2 weeks of subacutely progressive bilateral lower quadrant abdominal pain and per sistent diarrhea, with associated skin rash. History of Present Illness: Upon interview, pt endorses approximately 2 weeks of bilateral lower abdominal cramping jayson t was moderate to severe, occasionally associated with diarrhea, and has been progressively worsening over the past few days. Abd pain is 8/10 intensity, nonradiating, aggravated after eating or taking medications. States having diarrhea intermittently since last discharge in 04/2019. However, has been pr ogressively getting worse over the past 2 weeks. Has tried OTC immodium without significant effect. Diarrhea is watery and sometimes with small pieces of stool. Denies steatorrhea, hem atochezia, melena, dysuria, fever, chills. Denies recent abx. Denies any changes to tacrolim us. Denies sick contacts. Denies recent travel, eating raw foods, fresh water exposure. Asso ciated nausea. Also noted 1 week of rashes over the bilateral shoulders down half the back and behind bila teral ears, itching, nonpainful, nonvesicular. Has been using kenalog cream with improvement in the rash. Also endorses decreased appetite. Denies vomiting, dyspnea. ED course: -VS: afebrile, HR 70, BP 140s/60s, 95% on RA. -Labs: -CBC: no leukocytosis, Hgb 7.2 (from 8.4 prior; baseline 9s), MCV 91.6, PLT 123 L (from 23 0s prior). -CT Abd/Pelvis w/Contrast: pending final report. -EKG (07/07/2019): sinus bradycardia, rate 58, normal axis, no St elevations/depresisons. -Given: -1L IV NS. 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 --December 2018- developed fevers up to 104. Work up neg for infection, but noted to have CBC s howing dropping counts. --Jun. Moved to [place] ([facility]) -- 10/07/18 showed normal chemistries, Bilirubin 1.4, hepatitis negative, ESR elevated at 17 4 with RA, RIOS C3/C4 negative. CBC showed WBC 2.4, Hb 10.8, Plt 166K, ANC 1529. 11/05/[address] Sequeira (medical oncology) . 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 Mild er ythroid hyperplasia and megakaryocytic atypia. Blast immunophenotype was positive for CD33, CD45 dim, CD34, CD15, CD117, CD 11c, MPO. -Cytogenetics were normal. -MDS and AML FISH panel was negative. -Gentrails negative for FLT3, NPM1, CEBPA, c-KIT, IDH1, IDH2, TP53. 12/24/2018- Vidaza however developed a rash to the SQ injection and missed D3, dexamethasone was added for D4-D7. 01/14-01/26/2019 admitted for zoster to [facility]. Vidaza held. 02/17/2019- seen at [facility] by Dr. De La Torre, no healthy siblings so cord blood is only option -consented to kyle "[id number]: A Multicenter, Randomized, Phase III Re gistration Trial of Transplantation of NiCord, Ex Vivo Expanded, UCB-derived, Stem and Pro genitor Cells, vs. Unmanipulated UCB for Patients With Hematological Malignancies". She was randomized to SOC arm. --02/21-03/01 C3 aza.Tolerated well without complications. --04/15-05/18/2019 admitted to [facility] for planned flu/cy/tbi conditioned UCB on Gamida study (SOC arm). 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 Catheter access: No tenderness or swelling. Past Medical History: Past Medical History: Diagnosis Date Fibroid HTN (hypertension) Malignant neoplasm (HCC) Miscarriage Allergies Allergen Reactions Cefepime Rash Sulfa (Sulfonamide Antibiotics) Hives Medications Prior to Admission Medication Sig Dispense Refill Last Dose beclomethasone 1 mg/mL oral suspension (compound) Take 1 mL by mouth four times daily. Indications: treatment to prevent reaction after bone marrow transplant 250 mL 3 dapsone 100 mg oral tablet Take 1 tablet by mouth once daily. 30 tablet 5 07/06/2019 at U nknown time escitalopram oxalate 20 mg oral tablet Take 1 tablet by mouth once daily. Indications: major depressive disorder 30 tablet 5 07/06/2019 at Unknown time famotidine 20 mg oral tablet Take 1 tablet by mouth once daily at bedtime. Indications: prevention of inflammation of stomach 30 tablet 2 07/06/2019 at Unknown time hydrocortisone 2.5 % topical cream with perineal applicator Apply to affected area thre e times daily as needed. Wash and dry the rectal area, gently massage a small amount into th e affected area. 28.35 g 0 Not Taking at Unknown time letermovir 480 mg oral tablet Take 1 tablet by mouth once daily. Take this medication t hrough day +100 (07/31/2019) Indications: prevention of cytomegalovirus infection after allo geneic hematopoietic stem cell transplant 30 tablet 2 Unknown at Unknown time loperamide 2 mg oral capsule Take 1 capsule by mouth as needed for diarrhea. Do not exc eed max dose of 16 mg/day. 30 capsule 0 07/06/2019 at Unknown time loratadine 10 mg oral tablet Take 1 tablet by mouth once daily as needed. Indications: bone pain. 30 tablet 0 Not Taking at Unknown time ondansetron 8 mg oral tablet Take 1 tablet by mouth every twelve hours as needed for na usea/vomiting. Indications: nausea and vomiting caused by cancer drugs 60 tablet 0 07/06/2019 at Unknown time posaconazole DR 100 mg oral tablet,delayed release (DR/EC) Take 3 tablets by mouth once daily. Indications: prevention of fungal infection 90 tablet 3 07/06/2019 at Unknown time potassium chloride SR 10 mEq oral tablet,ER particles/crystals Take 2 tablets by mouth once daily. 60 tablet 0 07/06/2019 at Unknown time prochlorperazine 5 mg oral tablet Take 1-2 tablets by mouth every six hours as needed f or nausea/vomiting. Max dose: 40 mg/day 30 tablet 1 07/06/2019 at Unknown time rOPINIRole 0.5 mg oral tablet Take 1 tablet by mouth once daily in the evening. 30 tabl et 3 07/06/2019 at Unknown time tacrolimus 0.5 mg oral capsule Effective 06/24/2019: Take 0.5 mg by mouth every mornin g and 0.5 mg every evening. Combine 0.5mg and 1mg capsules to make your current dose. HOLD o n days of clinic and bring with you to take AFTER your labs are drawn. Indications: preventi on of GVHD 90 capsule 3 07/06/2019 at Unknown time tacrolimus 1 mg oral capsule Effective 06/24/2019: Take 0.5 mg by mouth every morning and 0.5 mg every evening. Combine 0.5mg and 1mg capsules to make your current dose. HOLD on days of clinic and bring with you to take AFTER your labs are drawn. Indications: prevention of graft versus host disease 90 capsule 3 Within last 30 days at Unknown time traMADol 50 mg oral tablet Take 1 tablet by mouth every six hours as needed for moderat e pain. 30 tablet 0 Within last 7 days at Unknown time triamcinolone acetonide 0.1 % topical ointment Apply a thin film to the affected areas twice daily as needed . Indications: skin rash 15 g 0 07/06/2019 at Unknown time ursodiol 500 mg oral tablet Take 1 tablet by mouth two times daily. Take this medicatio n through day +90 (07/21/2019) Indications: prevention of veno-occulsive disease 60 tablet 2 07/06/2019 at Unknown time valACYclovir 500 mg oral tablet Take 1 tablet by mouth two times daily. 60 tablet 11 07/06/2019 at Unknown time Current Medications: acetaminophen (TYLENOL) tablet 650 mg, 650 mg, oral, Q4H PRN dapsone tablet 100 mg, 100 mg, oral, DAILY escitalopram oxalate (LEXAPRO) tablet 20 mg, 20 mg, oral, DAILY famotidine (PEPCID) tablet 20 mg, 20 mg, oral, HS letermovir (PREVYMIS) tablet 480 mg, 480 mg, oral, DAILY magnesium sulfate in water IV (RTU) 4 g, 4 g, intravenous, PRN magnesium sulfate IV 8 g, 8 g, intravenous, PRN [START ON 07/08/2019] methylPREDNISolone sod succ (SOLU-MEDROL) injection 30 mg, 30 mg, intr avenous, BID ondansetron (ZOFRAN) injection, , , ondansetron (ZOFRAN) tablet 8 mg, 8 mg, oral, Q12H PRN posaconazole DR (NOXAFIL) tablet 300 mg, 300 mg, oral, DAILY potassium chloride IV (central line) 40 mEq, 40 mEq, intravenous, PRN OR potassium chlo ride IV (central line) 60 mEq, 60 mEq, intravenous, PRN potassium chloride SR (K-DUR) tablet 40 mEq, 40 mEq, oral, PRN potassium phosphate IV (CENTRAL LINE) 30 mmol, 30 mmol, intravenous, PRN OR potassium p hosphate IV (CENTRAL LINE) 40 mmol, 40 mmol, intravenous, PRN prochlorperazine (COMPAZINE) tablet 5-10 mg, 5-10 mg, oral, Q6H PRN rOPINIRole (REQUIP) tablet 0.5 mg, 0.5 mg, oral, QPM sodium phosphate IV 30 mmol, 30 mmol, intravenous, PRN sodium phosphate IV 40 mmol, 40 mmol, intravenous, PRN tacrolimus capsule 0.5 mg, 0.5 mg, oral, BID (08 and 18) triamcinolone acetonide (KENALOG) 0.1 % ointment, , topical, BID PRN ursodiol (ACTIGALL) tablet 500 mg, 500 mg, oral, BID valACYclovir (VALTREX) tablet 500 mg, 500 mg, oral, BID Social History Social History Tobacco Use Smoking status: Former Smoker Packs/day: 1.50 Years: 28.00 Pack years: 42.00 Types: Cigarettes Last attempt to quit: 06/29/2004 Years since quittin.0 Smokeless tobacco: Never Used Substance Use Topics Alcohol use: Not Currently Comment: very occasionally Social History Social History Narrative Lives with niece in [facility] Family History Noncontributory Objective: Last Vitals: BP 143/66 (BP Location: Right upper arm, Patient Position: Sitting) | Pulse 7 0 | Temp 37 C (98.6 F) (Oral) | Resp 17 | Ht 1.568 m (5' 1.73") | Wt 57.5 kg (126 lb 12.2 oz) | SpO2 95% | BMI 23.39 kg/m | BSA 1.58 m 24 Hour Vital Min/Max: Systolic (24hrs), Av , Min:130 , Max:143 Diastolic (24hrs), Av, Min:66, Max:79 Pulse Min: 70 Max: 75 Temp Min: 36.6 C (97.9 F) Max: 37 C (98.6 F) Resp Min: 17 Max: 18 SpO2 Min: 95 % Max: 100 % Intake/Output Summary (Last 24 hours) at 07/07/2019 2358 Last data filed at 07/07/2019 2300 Gross per 24 hour Intake 1000 ml Output 550 ml Net 450 ml Physical Exam: General: This is a female in no acute distress. Lying comfortably in bed. HEENT: EOMI. PERRL. Sclerae anicteric. Mucosa pink and moist without erythema or exudate. No petechiae. Skin: Diffuse maculopapular rash noted over mid/upper back/shoulders, posterior neck, and posterior auricular areas bilaterally. Chest: Lungs clear to auscultation bilat. CV: RRR, no murmurs, rubs, gallops. Abdomen: Soft, diffuse TTP but more pronounced over suprapubic area, bilateral lower quadr ants with voluntary guarding. Normoactive bowel sounds. Extremities: Pulses strong and equal bilaterally. No cyanosis or edema NeuroPsych: Alert, mentating well, answering questions appropriately. CN2-12 grossly intact , moving all extremities CVC: Double lumen tunneled L IJ line (placed 04/15/2019) over left chest, site c/d/i; none rythematous. Laboratory Results: Recent Labs 07/01/19 1149 07/07/19 0941 07/07/19 1725 NA 137 140 138 K 3.7 3.0* 4.1 CL 102 105 110* BICARB 17* 20* 20* BUN 13 9 7 CR 0.96 0.88 0.64 GLU 112* 161* 184* CA 8.8 8.5* 8.0* AST 8 9 7 ALT 12 9 7 AP 94 99* 99* TBILI 1.2 0.9 0.7 TP 6.4 6.1* 5.7* ALB 3.5 3.1* 2.9* Recent Labs 07/01/19 1149 07/07/19 0941 07/07/19 1725 WBC 7.33 6.66 4.41 RBC 3.25* 2.99* 2.61* HB 9.3* 8.4* 7.2* HCT 29.6* 27.7* 23.9* PLT 132* 239 123* NEUTROPERC 64.9 59.5 80.3* LYMPHPERC 15.0* 17.4* 13.2* MONOPERC 10.4* 11.9* 2.7* BASOPERC 0.3 0.2 0.2 EOSPERC 8.9* 9.6* 1.8 Lab Results Component Value Date APTT 29.2 04/15/2019 FIBRINOGEN 444 04/15/2019 Micro: -Pending C. Diff, GI pathogen panel (needs to be collected). -Pending UA/micro with dipstsick (needs to be collected). 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 Infectious colitis vs. Acute diverticulitis. Imaging: -07/07/2019 CT Abd/Pelvis W/Contrast: pending final report. Hematology: # MDS-EB2: Now s/p FluCyTBI-conditioned UCB stem cell transplant per the [place] study (Day 0- 04/22/19 ). Conditioning Regimen: FluCyTBI double cord Research study:Kyle "[id number]: A Multicenter, Random ized, Phase III Registration Trial of Transplantation of NiCord, Ex Vivo Expanded, UCB-keshia ived, Stem and Progenitor Cells, vs. Unmanipulated UCB for Patients With Hematological Malig nancies". She was randomized to SOC arm. -Pertinent Diagnostics: -BM Bx: 01/17/2019 -Results: MDS-EB2; patchy hypercellular marrow *70%) with trilineage hematopoiesis -Cytogenetics: -Genetrails -Most Recent BM: 05/25/2019 -Results: MDS; hypocellular marrow (25%) with trilineage hematopoiesis; no increase in bl asts, <2%. -Stem cell transplant -BMT Day: 04/22/2019 -Stem Cell product: CD 34 count = 0.07 x 10 6 per kg and 0.10 x 10 6 per kg -Stem Cell Day: +76 -Post Transplant: -Day +21 chimerism ordered per study: 100% donor #2 CD33, CD56, CD3 and CD1 9 insufficient for analysis -BM Bx to be completed on day +30, day +100, 6 months, and 1 year post-trans plant -Day +30 BMBX completed on 05/25/2019 -Results: Hypocellular marrow (25%) with trilineage hematopo iesis. No increase in blasts, <2%. 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 Pt with slight drop in Hgb and PLT s/p 2L IVF on initial admit. No e/o active bleeding at this time. Will continue to monitor. -Pt requires HLA-matched platelets. -See supportive care # Supportive Care: -Growth factor: last dose of Neupogen given on 05/19/2019, re-dose if ANC <1000. -Labs: Continue to check CBC daily -Transfusion parameters: -Transfuse PRBCs for HCT <24% due to symptomatic anemia. -Transfuse PPH for platelet count <10,000 sooner PRN s/s bleeding. 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 Now s/p 1 mg/kg IV methylpred on 0 07/07/2019 prior to going to the ED. Pt did not take home tacrolimus 0.5 mg BID on 07/07/2019 as was in appointments all day, so will give pm dose tonight. Tacrolimus trough on 07/08 am would not be helpful, so should obtain next on 07/09/2019. Will pre-emptively make pt NPO a t midnight, with plans to consult GI in the am. -Needs GI consult in am. -Next tacro trough ordered for 07/09/2019. -IV methylprednisolone 0.5 mg/kg BID (next dose 07/08/2019). -Consider transitioning to beclomethasone if infectious work up negative. -NPO at midnight in case of possible procedure on 07/08/2019 (only if indicated as per GI) . -May need to alert administrative assistant coordinator about adverse reaction in am. -Consider derm consult in am for biopsy of skin. Neuro/Psych: No acute issues Cardiovascular: # HTN: Previously on home lisinopril 5 mg QDAY and triamterene/HCTZ, but not on home MAR prior to this admission. -Monitor. Pulmonary: No acute issues. -Pretransplant PFTs completed on03/10/19 showed FEV1 of76% predicted, FVC of87% predi cted and adjusted DLCO of77% predicted. GI: # Subacutely Progressive Diarrhea: # Bilateral Lower Abd Cramping Pain, Intermittent: Ddx includes GI GVHD as outlined under heme section vs. Infectious etiology vs. Diverticuli tis. Currently without fever, tachycardia, or hypoxia. Abd exam with guarding, but no c/f pe ritonitis at this time. Thus, will hold off on empiric abx at this time, but will continue h ome antimicrobial prophylaxis. Last CMV PCR Quant undetectable (07/01/2019). Lactate 0.8 wnl , and no e/o hematochezia/melena, and no hx of arrhythmia making ischemic colitis less likel y. No obstipation. -F/u CT abd/pelvis w/contrast (07/07/2019). -F/u stool GI pathogen panel, C. Diff (pt not yet had bowel movement to obtain). -F/u UA/micro to eval for UTI, in case contributing. -IV steroids as above under heme section. -If spikes fever, obtain BCx. May need to empirically start IV pip-tazo. /Renal: No acute issues Infectious Disease: # Diarrhea: as above under GI section and under Heme section. #Prophylaxis: Bacterial: None. Fungal: home posaconazole 300 mg QDAY through day +100. Viral: Home letermovir 480 mg QDAY; home valacyclovir 500 mg BID. PCP: home dapsone 100 mg QDAY (started 06/10/2019); previously received IV pentamidine on 1 07/13/2018. Toxo: Pt is toxo negative- no further intervention. Endo: No acute issues MSK: No acute issues Fluid/Nutrition/Lytes: #Nutrition: Current diet -- Regular No Janee's yogurt or Kefir. NPO at midnight 07/07/2019. #Fluid: not required at this time; monitor PO intake. #Lytes: -Continue to check chemistries daily -Replace per supportive care protocol. DVT prophylaxis: SCDs. Holding pharmacologic ppx on 07/07/2019 in case of possible procedur e/biopsies. Code status: FULL CODE. Surrogate Decision Maker Primary Surrogate Decision Maker Claudia Hartley [phone] This patient was staffed with attending physician, Dr. Olya Steven, who agrees with the abo ve assessment and plan unless documented otherwise in separate attending attestation. Yifan Young MD Internal Medicine PGY-3 Pager [phone] Associated attestation - Radha Rooney MD - 07/08/2019 6:53 PM PSTI have personally s een and evaluated the patient on 07/08/2019. I reviewed the note by Dr. Young and agree with the documented findings and plan of care. Analy Camarillo is a 53 y.o. female with MDS s/p Flu/Cy/TBI followed by double cord bloo d transplant on 04/22/19 who was admitted with diarrhea, worsening abdominal pain, concern f or GVHD vs. Infection. She was started empirically on 1mg/kg/day of steroids. She previous ly had a skin rash, which improved with topical agents. Upper GI symptoms present as well. Today she reports feeling better. Upon questioning she also notes a cough that has been pr esent the last couple of weeks, mainly at night, with coughing fits. Exam is notable for an interactive female in NAD. OP moist and without lesions. Heart RRR without murmurs. Lungs CTAB. Abd +BS, soft, but tender in L side, without rebound or guar ding. Ext warm, without edema. Skin with erythematous, macular rash on upper middle back a nd chest. Minimal induration. 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 Will perform dedicated chest CT, start empiric Zosyn and check urine studies. Continue current steroid dose for now. May need to escalate to 2mg/kg/day Radha Rooney MD documented in this encounter Procedure Notes Chuy Mera MD - 07/11/2019 10:56 AM PSTAssociated Order(s): BRONCHOSCOPY WITH BRONCHOAL VEOLAR LAVAGEProcedure(s): BRONCHOSCOPY WITH BRONCHOALVEOLAR LAVAGEPre-Procedure Diagnose(s) : Abnormal CT scan of lung; Myelodysplastic syndrome (HCC); Ikjid-invajn-mdud disease compli cating stem cell transplant (HCC)Post-Procedure Diagnose(s): Abnormal CT scan of lung; Myelo dysplastic syndrome (HCC); Zoxsw-rsryvl-tgvg disease complicating stem cell transplant (HCC) Brief Bronchoscopy Note Patient information: Analy Camarillo Attending: David Mera MD Fellow: Erik Bergeron MD Brief post-procedure note, formal note in ProVation to follow. Final report will be under Procedure Tab in Epic. Medications: Midazolam 4.5mg Fentanyl 125mcg Procedure performed: 34580 Bronchoscopy w/ BAL Estimated blood loss: None. Complications: None; patient tolerated the procedure well. Procedural Findings: The airway was entered via the oropharynx. The vocal cords had normal movement bilaterally without swelling or edema. The crispin was sharp and the bronchial mucosa appeared normal wit hout erythema. The endobronchial anatomy was inspected down to the level of the sub-segment al bronchus without evidence of purulence, mass or other lesion. The lateral segment of the RLL was entered for the bronchoalveolar lavage. On our first attempt, we instilled 80mL of s terile saline with negligible return. We then entered a different sub-segment of the lateral segment of the RLL, where we instilled an additional 120mL of sterile saline, this time wit h a 35mL return of clear, mildly turbid fluid. This sample will be sent for microbiological testing. Ms. Camarillo tolerated the procedure well and without immediate complication. Plan: Ms. Camarillo will be monitored briefly in the bronchoscopy suite prior to being transp orted to 14K. After observation, if stable, two hours after the last administration of lido yamilet she will be able to resume prior diet if applicable. The patient or care team should call the on-call pulmonary physician should there be any problems felt to be related to the procedure. It would not be unusual to have a fever in the next 24 hours. Acetaminophen woul d be appropriate to treat the fever if not contraindicated. If biopsies were perform a smal l amount of hemoptysis is expected and should decrease steadily over the next 24 to 48 hours . Our service will follow up on the results of the procedure and make appropriate arrangement sNicole Bergeron MD Pulmonary/Critical Care Medicine Fellow Pager [phone] Late entry for 11 July: During the critical portion of the procedure, I was present. Devi Mera documented in this enco unter Consult Notes Humble Rubio MD - 07/12/2019 4:04 PM PSTBrief ID follow up Pt in process of being discharged Did fine after BAL Posaconazole increased to 400 daily Will follow BAL results Please repeat noncontrast chest CT in ~7-10 days Further recs TBD based on BAL and CT results D/W primary team prin Mini araya, PharmD - 07/12/2019 12:58 PM PST 07/12/2019 12:58 PM Pharmacy Services: Tacrolimus Immunosuppression Therapy Note Current physician: Aniya Banks Mid-level practitioner: Marj Kaur Diagnosis: Transplant type: Allo full intensity Transplant date: 04/22/19; Today is day +81 Study Protocol: [place] [id number] Subjective/Objective: Analy Camarillo is a 53 year old female with a history of MDS-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 Allergies: Allergies Allergen Reactions Cefepime Rash Sulfa (Sulfonamide Antibiotics) Hives Current Medication: Tacrolimus Dose and route of administration: 1 mg PO BID Number of doses received since last dose change: 5 doses Interacting medications/pertinent medication changes: posaconazole changed to 400 mg daily today, restarting letermovir (CORD BLOOD TRANSPLANT) Evidence of toxicity or adverse events: no Active GVHD: yes - bx proven mild GI GvHD, skin GvHD (resolved) Labs: CREATININE PLASMA (LAB) (mg/dL) Date Value 07/12/2019 0.62 07/11/2019 0.60 07/10/2019 0.62 Immunosuppressant level: tacrolimus TACROLIMUS (FK 506) (ng/mL) Date Value 07/12/2019 5.1 Target drug level: 5-15 ng/mL (per study) Drug level drawn at appropriate time: yes; ~12 hr level Date (Day +) Level Dose Comments 07/09/19 3.6 0.5 mg PO BID Increase to 1 mg PO BID 07/12/19 (+81) 5.1 1 mg PO BID Continue current dose Assessment/Plan: - Current drug level is within range. - The patient s kidney function is stable and liver function is stable. - Recommend to continue current dose. Level is at the lower end of target range, but antici benitez level will rise with restarting letermovir and increasing posaconazole dose. - Next drug level is ordered in clinic at 0900 on , 07/14 as a trough just prior to AM dose. [facility] Pharmacy Services will continue to follow and make recommendations as drug levels are available or the patient s clinical status changes. Please page the Oncology Pharmacis t (#[phone]) or call central inpatient pharmacy ([phone]) with questions. Thank you for the consult, Minor Serrano PharmD Mini Villalobos PharmD - 07/12/2019 12:54 PM PSTAfter visit summary (AVS) reviewed with Best Calabrese Number of medications possibly subject to modification: 5 -change prednisone dispensed strength -DC dapsone -update KCl dosing -send rx for posa for higher dose -send loperamide and zofran prescription Anticipated patient discharge date: 07/12/19 Discussed with discharging provider? Yes Time spent: 20 minutes Thank you for the consult, Minor Serrano PharmD Melida Gallegos MD - 07/11/2019 5:11 PM PST . INPATIENT INFECTIOUS DISEASE PROGRESS NOTE ID TEAM: Transplant Patient: Analy Camarillo Author: Kerline Black MD Date of Admission: 07/07/2019 Hospital Day: 4 Interval Events/Subjective: - Bronchoscopy this morning - Feeling well since then - no shortness of breath. Cough remains frequent but unchanged. N o subjective fever or chills. Physical Exam: Last Vitals: BP 131/68 (BP Location: Right upper arm, Patient Position: Lying on back;Sitti ng) | Pulse 78 | Temp 36.6 C (97.9 F) (Oral) | Resp 14 | Ht 1.568 m (5' 1.73") | Wt 56.2 kg (124 lb) | SpO2 97% | BMI 22.88 kg/m | BSA 1.56 m 24 Hour Vital Min/Max: Systolic (24hrs), Av , Min:116 , Max:178 Diastolic (24hrs), Av, Min:58, Max:145 Pulse Min: 52 Max: 101 Temp Min: 36.4 C (97.5 F) Max: 37.1 C (98.8 F) Resp Min: 11 Max: 20 SpO2 Min: 92 % Max: 98 % Intake/Output Summary (Last 24 hours) at 07/11/2019 1712 Last data filed at 07/11/2019 1651 Gross per 24 hour Intake 3470 ml Output 2240 ml Net 1230 ml General: NAD, seated comfortably in bed HEENT: No scleral icterus, no conjunctival injection. Normal oral mucosa. Respiratory: clear bilaterally, no wheezes Cardiovascular: regular rate and rhythm, no murmurs Extremities: no edema Skin: no rashes Neuro: Alert, oriented x 3, no focal neurological deficits Antimicrobial Medications Prophylaxis: Dapsone Letermovir Valacyclovir Posaconazole (300 mg daily) Microbiology Data: BAL 07/11: - Cx in process - AFB in process - Fungal cx in process - Nocardia in process - RVP negative Serum CrAg 07/09 negative Imaging: CT chest without contrast 07/08: Nodular area of focal consolidation with surrounding ground glass opacities in the right lower lobe, as well as scattered groundglass and tree-in-bud op acities in the right middle lobe and lingula. These findings were not present in the prior c hest CT from 01/13/2019 and favor infection. In the setting of immunocompromised status, atyp ical infections are consideration including fungal given nodular appearance. Imaging follow- up to full resolution recommended after appropriate treatment. Laboratory Data: Recent Labs 07/09/19 0007 07/10/19 0012 07/11/19 0002 WBC 4.17 4.23 4.47 RBC 2.51* 2.44* 2.72* HB 7.0* 6.7* 7.6* HCT 23.3* 22.1* 25.1* PLT 206 126* 190 NEUTROPERC 75.6* 72.8* 75.4* LYMPHPERC 16.8* 18.0 15.9* MONOPERC 5.0 6.6 6.9 BASOPERC 0.0 0.2 0.2 EOSPERC 0.0* 0.0* 0.0* Recent Labs 07/10/19 0012 07/10/19 1000 07/11/19 0002 NA 140 139 137 K 2.9* 4.0 3.2* CL 106 107 104 BICARB 25 26 27 BUN 8 9 10 CR 0.58* 0.62 0.60 GLU 129* 112* 170* CA 8.0* 8.1* 8.4* Lab Results Lab Test Name Results Date/Time AST 15 07/11/19 ALT 9 07/11/19 AP 87 07/11/19 TBILI 0.5 07/11/19 TP 5.6 07/11/19 ALB 3.0 07/11/19 Medications: Current Facility-Administered Medications Medication Dose Route Frequency acetaminophen (TYLENOL) tablet 650 mg 650 mg oral Q4H PRN escitalopram oxalate (LEXAPRO) tablet 20 mg 20 mg oral DAILY magnesium sulfate in water IV (RTU) 4 g 4 g intravenous PRN magnesium sulfate IV 8 g 8 g intravenous PRN methylPREDNISolone sod succ (SOLU-MEDROL) injection 30 mg 30 mg intravenous BID OLANZapine (ZYPREXA) tablet 2.5 mg 2.5 mg oral HS omeprazole (PRILOSEC) capsule 40 mg 40 mg oral DAILY ondansetron (ZOFRAN) injection ondansetron (ZOFRAN) tablet 8 mg 8 mg oral Q12H PRN [START ON 07/12/2019] posaconazole DR (NOXAFIL) tablet 400 mg 400 mg oral DAILY potassium chloride IV (central line) 40 mEq 40 mEq intravenous PRN Or potassium chloride IV (central line) 60 mEq 60 mEq intravenous PRN potassium chloride SR (K-DUR) tablet 40 mEq 40 mEq oral PRN potassium phosphate IV (CENTRAL LINE) 30 mmol 30 mmol intravenous PRN Or potassium phosphate IV (CENTRAL LINE) 40 mmol 40 mmol intravenous PRN prochlorperazine (COMPAZINE) injection 5-10 mg 5-10 mg intravenous Q6H PRN prochlorperazine (COMPAZINE) tablet 5-10 mg 5-10 mg oral Q6H PRN rOPINIRole (REQUIP) tablet 0.5 mg 0.5 mg oral QPM sodium chloride (NS) 0.9 % bolus 1,000 mL 1,000 mL intravenous PRN sodium phosphate IV 30 mmol 30 mmol intravenous PRN sodium phosphate IV 40 mmol 40 mmol intravenous PRN tacrolimus capsule 1 mg 1 mg oral BID ( and ) triamcinolone acetonide (KENALOG) 0.1 % ointment topical BID PRN ursodiol (ACTIGALL) tablet 500 mg 500 mg oral BID valACYclovir (VALTREX) tablet 500 mg 500 mg oral BID Assessment and Plan: 53 y/o F with MDS s/p cord blood transplant on 04/22/19, admitted for diarrhea, thought to be GVHD (endoscopy done, biopsy pending.) Found on workup to have a RLL focal consolidation on chest imaging, and on further review of systems had been having a non-productive cough fo r several weeks. Imaging is concerning for opportunistic infection, ie nocardia or fungal, i n spite of posaconazole prophylaxis (wonder if recent GI symptoms have affected absorption, and posaconazole level from March was borderline at 0.7.) Given that she will likely need high dose steroids for GVHD, diagnosis is important; as such, she underwent bronchoscopy tod ay. Further recommendations based on pending results. In the interim, she is clinically stable and minimally symptomatic, so risks of changing he r antifungal (such as to Ambisome) likely outweighs benefits. However, given that we have so me concern about adequate posaconazole levels, suggest increasing dose to 400 mg daily while awaiting further diagnostic studies. Recommendations: 1. Increase posaconazole dose to 400 mg daily 2. Further recommendations pending bronchoscopy results Recommendations were communicated directly to the primary team. This patient was staffed [facility] Dr. Rubio, who agrees with the above assessment and plan unless otherwise documented. Kerline Black MD Infectious Disease Fellow Pager: [phone] signed by Humble Rubio MD at 07/11/2019 5:51 PM PSTWaagmee Erik freeman MD - 07/11/2019 9:12 AM PSTFormatting of this note might be different fro m the original. Pulmonary Follow Up Date of admission: 07/07/2019 Hospital Day: 4 ID: Ms. Analy Camarillo is a 53 y.o. female with a history of myelodysplastic syndrome s/p c ord blood transplant 04/22/19, here with diarrhea and abdominal pain with concern for GvHD t reated with high-dose steroids, found to have a RLL consolidative opacity concerning for inf ection. Interval events: - No acute events overnight - Ongoing dry cough, some dyspnea with exertion but none at rest, remains stable on room ai r - Plan for bronchoscopy with BAL today Objective: Last 24 hour min/max Temp: 36.6 C (97.9 F) Temp Min: 36.4 C (97.5 F) Max: 37.1 C (98.8 F) Pulse: 78 Pulse Min: 52 Max: 101 Resp: 14 Resp Min: 11 Max: 20 BP: 131/68 BP Min: 116/79 Max: 178/69 SpO2: 97 % SpO2 Min: 92 % Max: 98 % Body mass index is 22.88 kg/m. Intake/Output Summary (Last 24 hours) at 07/11/20192011 Last data filed at 07/11/2019 1742 Gross per 24 hour Intake 3470 ml Output 2265 ml Net 1205 ml Exam: General: Thin, middle-aged woman, pleasant, in no acute distress HEENT: EOMI, no icterus. MMM, no OP lesion or exudate. Mallampati 3, normal upper lip bite test. CV: RRR, no m/r/g Lung: Normal work of breathing on room air. Lungs are CTAB, no r/r/w Ext: Warm, no peripheral edema or clubbing. Neuro: Alert and oriented, CN grossly intact, moving all extremities without focal deficit Labs: Lab Results Component Value Date NA 137 07/11/2019 K 3.2 07/11/2019 CL 104 07/11/2019 BICARB 27 07/11/2019 BUN 10 07/11/2019 EGFRAFRICAN >60 07/11/2019 EGFRNONAFR >60 07/11/2019 CR 0.60 07/11/2019 GLU 170 07/11/2019 CA 8.4 07/11/2019 ANIONGAP 6 07/11/2019 ANIONALBCOR 8 07/11/2019 Lab Results Component Value Date WBC 4.47 07/11/2019 HB 7.6 07/11/2019 HCT 25.1 07/11/2019 PLT 190 07/11/2019 MCV 92.3 07/11/2019 RDW 57.1 07/11/2019 Assessment: Ms. Analy Camarillo is a 53 y.o. female with a history of myelodysplastic syndrome s/p cord blood transplant 04/22/19, here with diarrhea and abdominal pain with concern for GvHD treat ed with high-dose steroids, found to have a RLL consolidative opacity on chest CT concerning for infection. Given her lack of symptoms and immunosuppression related to her transplant, the likelihood of a typical bacterial pneumonia is low and I am therefore more concerned for a fungal infection (particularly given her low serum posaconazole level). While the pattern on chest imaging is not consistent with a viral infection, we will plan for a broad array o f testing from today's bronchoscopy. Because of the peripheral location of the consolidative opacity, our yield from the procedure will likely be low, but given that the next step in d iagnostic work-up would be a VATS with biopsy, this is a much less invasive first step. Recommendations: - Plan for bronchoscopy with BAL today - Cell count and differential - Bacterial, fungal and AFB culture - Aspergillus galactomannan - Nocardia - Legionella - HSV - Varicella - Respiratory viral panel - Broad Range PCR - Continue prophylactic antiviral/antifungal per ID This patient was evaluated with Dr. David Mera, attending physician, who agrees with my ass essment and plan. Erik Bergeron MD Pulmonary and Critical Care Fellow Pager [phone] Associated attestation - Chuy Mera MD - 07/12/2019 2:02 PM PST Late entry for 11 July: Pt interviewed & examined by me, reviewed w Dr. Bergeron whose note states our findings, impr & recs in full. Patient immunocompromised b/o transplant for myelodysplastic syndrome , has developed RLL consolidation, at risk for opportunistic infection. Recommend fiberopti c bronchoscopy for BAL as low risk/ low yield attempt to identify causative organism. Antwan Tripp MD - 07/10/2019 4:17 PM PSTAssociated Order(s): IP CONSULT TO PULMONOLO [facility] Pulmonary Consult Requesting Attending: Olya Steven Reason for Consult: lung consolidation History of Present Illness: Analy Camarillo is a 53 y.o. woman with a history of MDS s/p cord blood txp 04/22/19 who pre sents with increased diarrhea and abd pain, concerning for GVHD. She was started on high dos e steroids and has pending bx from flex sig. CT a/p was obtained as part of her evaluation, with a nodular consolidation in the RLL note d. She underwent CT chest which re-demonstrated the RLL consolidation plus GGO and tree in b ud in the RML and lingula. The findings could represent a fungal infection, for which she ma y need to be treated with amphotericin. Reports minimal respiratory sxs. She developed a dry cough a few weeks, which occurs in fit s, at night more than during the day. No mucus production, no hemoptysis. She has not tried anything for it. No clear triggers other than it happens more at night. Former smoker, 40 py, quit 15 yrs ago. No vaping. No new meds. No new recent travel or expo sures. No sick contacts. 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 escitalopram oxalate 20 mg oral tablet Sig: Take 1 tablet by mouth once daily. Indications: major depressive disorder famotidine 20 mg oral tablet Sig: Take 1 tablet by mouth once daily at bedtime. Indications: prevention of inflammation of stomach hydrocortisone 2.5 % topical cream with perineal applicator Sig: Apply to affected area three times daily as needed. Wash and dry the rectal area, gent ly massage a small amount into the affected area. letermovir 480 mg oral tablet Sig: Take 1 tablet by mouth once daily. Take this medication through day +100 (07/31/2019) Indications: prevention of cytomegalovirus infection after allogeneic hematopoietic stem david l transplant loperamide 2 mg oral capsule Sig: Take 1 capsule by mouth as needed for diarrhea. Do not exceed max dose of 16 mg/day. loratadine 10 mg oral tablet Sig: Take 1 tablet by mouth once daily as needed. Indications: bone pain. ondansetron 8 mg oral tablet Sig: Take 1 tablet by mouth every twelve hours as needed for nausea/vomiting. Indications: nausea and vomiting caused by cancer drugs posaconazole DR 100 mg oral tablet,delayed release (DR/EC) Sig: Take 3 tablets by mouth once daily. Indications: prevention of fungal infection potassium chloride SR 10 mEq oral tablet,ER particles/crystals Sig: Take 2 tablets by mouth once daily. prochlorperazine 5 mg oral tablet Sig: Take 1-2 tablets by mouth every six hours as needed for nausea/vomiting. Max dose: 40 mg/day rOPINIRole 0.5 mg oral tablet Sig: Take 1 tablet by mouth once daily in the evening. tacrolimus 0.5 mg oral capsule Sig: Effective 06/24/2019: Take 0.5 mg by mouth every morning and 0.5 mg every evening. Co mbine 0.5mg and 1mg capsules to make your current dose. HOLD on days of clinic and bring wit h you to take AFTER your labs are drawn. Indications: prevention of GVHD tacrolimus 1 mg oral capsule Sig: Effective 06/24/2019: Take 0.5 mg by mouth every morning and 0.5 mg every evening. Co mbine 0.5mg and 1mg capsules to make your current dose. HOLD on days of clinic and bring wit h you to take AFTER your labs are drawn. Indications: prevention of graft versus host diseas e traMADol 50 mg oral tablet Sig: Take 1 tablet by mouth every six hours as needed for moderate pain. triamcinolone acetonide 0.1 % topical ointment Sig: Apply a thin film to the affected areas twice daily as needed . Indications: skin sandra h ursodiol 500 mg oral tablet Sig: Take 1 tablet by mouth two times daily. Take this medication through day +90 (07/21/19) Indications: prevention of veno-occulsive disease valACYclovir 500 mg oral tablet Sig: Take 1 tablet by mouth two times daily. Facility-Administered Medications: None Inpatient Medications: Current Facility-Administered Medications Medication Dose Route Frequency Provider Last Rate Last Dose acetaminophen (TYLENOL) tablet 650 mg 650 mg oral Q4H PRN Yifan Young MD escitalopram oxalate (LEXAPRO) tablet 20 mg 20 mg oral DAILY Yifan Young MD 20 mg at 07/10/19 1005 lidocaine (XYLOCAINE) 20 mg/mL (2 %) injection 20-40 mg 1-2 mL topical INTRAPROCEDURE PRN Antwan Diego MD lidocaine (XYLOCAINE) 4 % (40 mg/mL) topical solution 20 mL 20 mL Mouth/Throat INTRAPR OCEDURE ONCE Antwan Diego MD lidocaine viscous (XYLOCAINE VISCOUS) 2 % mucosal solution 2-6 mL 2-6 mL topical INTRA PROCEDURE PRN Antwan Diego MD magnesium sulfate in water IV (RTU) 4 g 4 g intravenous PRN Yifan Young MD Sto pped at 07/10/19 1520 magnesium sulfate IV 8 g 8 g intravenous PRN Yifan Young MD methylPREDNISolone sod succ (SOLU-MEDROL) injection 30 mg 30 mg intravenous BID Olya Steven MD 30 mg at 07/10/19 0524 OLANZapine (ZYPREXA) tablet 2.5 mg 2.5 mg oral HS LACY Fung omeprazole (PRILOSEC) capsule 40 mg 40 mg oral DAILY LACY Fung 40 mg at 0 07/10/19 1005 ondansetron (ZOFRAN) injection ondansetron (ZOFRAN) tablet 8 mg 8 mg oral Q12H PRN Yifan Young MD 8 mg at 06/[address] (NOXAFIL) tablet 300 mg 300 mg oral DAILY Yifan Young MD 300 m g at 07/10/19 1005 potassium chloride IV (central line) 40 mEq 40 mEq intravenous PRN Lisa Neville Stopped at 07/09/19 1105 Or potassium chloride IV (central line) 60 mEq 60 mEq intravenous PRN Lisa Neville Stopped at 07/10/19 0953 potassium chloride SR (K-DUR) tablet 40 mEq 40 mEq oral PRN Yifan Young MD potassium phosphate IV (CENTRAL LINE) 30 mmol 30 mmol intravenous PRN Yifan Young MD Or potassium phosphate IV (CENTRAL LINE) 40 mmol 40 mmol intravenous PRN Yifan Young MD prochlorperazine (COMPAZINE) injection 5-10 mg 5-10 mg intravenous Q6H PRN LACY Yang Ma 10 mg at 07/08/19 1846 prochlorperazine (COMPAZINE) tablet 5-10 mg 5-10 mg oral Q6H PRN Yifan Young MD 5 mg at 07/08/19 0149 rOPINIRole (REQUIP) tablet 0.5 mg 0.5 mg oral QPM Yifan Young MD 0.5 mg at 05/18 205 sodium chloride (NS) 0.9 % bolus 1,000 mL 1,000 mL intravenous PRN Ranjan Fung sodium chloride (NS) 0.9 % infusion 100 mL/hr intravenous PROCEDURE CONTINUOUS Antwan Field MD sodium phosphate IV 30 mmol 30 mmol intravenous PRN Yiafn Young MD sodium phosphate IV 40 mmol 40 mmol intravenous PRN Yifan Young MD tacrolimus capsule 1 mg 1 mg oral BID ( and ) Olya Steven MD 1 mg at 07/10/19 0946 triamcinolone acetonide (KENALOG) 0.1 % ointment topical BID PRN Yifan Young MD ursodiol (ACTIGALL) tablet 500 mg 500 mg oral BID Yfian Young MD 500 mg at 06/17 1005 valACYclovir (VALTREX) tablet 500 mg 500 mg oral BID Yifan Young MD 500 mg at 07/10/19 1005 Allergies: Allergies Allergen Reactions Cefepime Rash Sulfa (Sulfonamide Antibiotics) Hives Social History: Social History Tobacco Use Smoking status: Former Smoker Packs/day: 1.50 Years: 28.00 Pack years: 42.00 Types: Cigarettes Last attempt to quit: 06/29/2004 Years since quittin.0 Smokeless tobacco: Never Used Substance Use Topics Alcohol use: Not Currently Comment: very occasionally Social History Social History Narrative Lives with niece in [facility] Family History: Family History Problem Relation Heart Attack Mother Melanoma Father Liver Disease Father Alcohol abuse Father Stroke Sister Dementia Sister Diabetes Sister Brain cancer Brother Alcohol abuse Brother Brain cancer Aunt Review of Systems: 12 pt review of system was reviewed and the pertinent positive and negative are included in the HPI. Physical Exam: Last 24 hour min/max Temp: 36.5 C (97.7 F) Temp Min: 36.5 C (97.7 F) Max: 37.1 C (98.8 F) Pulse: 67 Pulse Min: 57 Max: 72 Resp: 16 Resp Min: 16 Max: 16 BP: 135/71 BP Min: 135/71 Max: 151/61 SpO2: 96 % SpO2 Min: 93 % Max: 96 % Body mass index is 22.88 kg/m. NAD, thin, speaking in full sentences on room air MMM, clear OP Neck supple, no LAD RRR, no M/R/G Lungs ctab, no crackles or wheezes Abdomen soft, NT, ND Extremities WWP, no edema A&O, no focal deficits Laboratory: Recent Labs 07/08/19 0001 07/09/19 0000 07/10/19 0012 07/10/19 1000 NA 138 142 140 139 K 4.1 3.3* 2.9* 4.0 CL 109* 109* 106 107 BICARB 23 23 25 26 BUN 5* 10 8 9 CR 0.55* 0.60 0.58* 0.62 GLU 137* 138* 129* 112* CA 8.2* 8.5* 8.0* 8.1* MG 2.7* 1.8 1.4* 1.5* PO4 2.9 3.4 3.0 -- Recent Labs 07/08/19 0001 07/09/19 0007 07/10/19 0012 WBC 4.02 4.17 4.23 RBC 2.54* 2.51* 2.44* HB 7.1* 7.0* 6.7* HCT 23.1* 23.3* 22.1* PLT 198 206 126* NEUTROPERC 91.0* 75.6* 72.8* LYMPHPERC 6.0* 16.8* 18.0 MONOPERC 1.0* 5.0 6.6 BASOPERC 0.0 0.0 0.2 EOSPERC 1.0 0.0* 0.0* No results for input(s): PH, PCO2, PO2, HCO3, O2SAT, FIO2 in the last 72 hours. Lab Results Component Value Date INRPT 0.95 05/16/2019 Micro: Crypto (-) Imaging: CT Chest 07/08 RLL nodular consolidation GGO, TIB in RML, lingula Stable nodule in lingula PFTs: Ped Pre Spirometry Latest Ref Rng & Units 03/10/2019 FVC PRE 3.28 L 2.86 FVC PRE (%REF) % 87 FEV1 PRE 2.57 L 1.98 FEV1 PRE (%REF) % 76 FEV1/FVC PRE 79 % 69 FEV1/FVC PRE (%REF) % 87 GVE07-75% PRE 2.51 L/sec 1.21 LMT86-00% PRE (%REF) % 48 PEF PRE 6.36 L/sec 6.90 PEF PRE (%REF) % 108 Impression: Analy Camarillo is a 53 y.o. woman with a history of MDS s/p cord blood txp 04/22/19 who pre sents with increased diarrhea and abd pain, concerning for GVHD and is also found to have ne w findings on CT concerning for a new PNA. While she has been on ppx and is not neutropenic, per Heme/Onc cord blood transplants increase risk of infection in particular, and now she i s on steroids. Low suspicion for typical bacterial PNA, she has minimal sxs and no derangements in her vit als or respiratory status. She has been on ppx posaconazole, however her level was recently low and the pattern on imaging could be consistent with a fungal PNA. We discussed with the patient and ID that the yield on bronch is likely to be low or negati ve given the peripheral location of the consolidation. However, given that the next step wou ld be VATS for a bx, we agree that an attempt should be made to diagnose the infection with bronchoscopy first. Recommendations: -bronchoscopy tomorrow -BAL studies ordered per ID priorities: count and diff, cx, fungal cx, AFB cx, galactomanna n, nocardia, broad range PCR, legionella -NPO at midnight Thank you for this consult. We will follow along. Please page dental receptionist hospital fellow with questions. Recommendations communicated to primary team. The patient was staffed and seen by Dr. Camacho, my attending physician who agrees with my ass essment and plan. Antwan Diego MD Pulmonary/Critical Care Fellow Pager: [phone] signed by Chanda Camacho MD at 07/10/2019 8:47 PM PST Associated attestation - Chanda Camacho MD - 07/10/2019 8:47 PM PSTFormatting of this note m ight be different from the original. 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 Diego. I confirmed the bradley elements of the physical examination, and personally formulated the asses sment and plan with her. I agree with Dr. Diego's documentation without any significant changes. We discussed our plan with Dr. Humble Rubio and our plan is to perform a bronchos copy with bronchoalveolar lavage 1-13-2020. Informed consent was obtained from the patient a fter explaining the risks and benefits of the procedure and all her questions were answered. Patient to be NPO after midnight. Likely target, superior segment right lower lobe. CHANDA CAMACHO MD [facility] [id number] [facility] Mailcode: [id number] [place] [id number] Humble Rubio MD - 07/10/2019 12:16 PM PSTFormatting of this note might be different fro m the original. TRANSPLANT INFECTIOUS DISEASES FOLLOW UP VISIT NOTE I saw & examined Ms. Camarillo. Chart reviewed No events overnight Feels about the same today Still with nonproductive cough, no pleurisy Diarrhea still as frequent but less volume Mild abd cramps but no N/V Otherwise no new problems on complete ROS Current Medications: Current Facility-Administered Medications: acetaminophen (TYLENOL) ta blet 650 mg, 650 mg, oral, Q4H PRN, Yifan Young MD escitalopram oxalate (LEXAPRO) tablet 20 mg, 20 mg, oral, DAILY, Yifan Young MD, 20 m g at 07/10/19 1005 magnesium sulfate in water IV (RTU) 4 g, 4 g, intravenous, PRN, Yifan Young MD, 4 g a t 07/10/19 1018 magnesium sulfate IV 8 g, 8 g, intravenous, PRN, Yifan Young MD methylPREDNISolone sod succ (SOLU-MEDROL) injection 30 mg, 30 mg, intravenous, BID, Olya Steven MD, 30 mg at 07/10/19 0524 omeprazole (PRILOSEC) capsule 40 mg, 40 mg, oral, DAILY, LACY Fung, 40 mg at 06/17 1005 ondansetron (ZOFRAN) injection, , , , ondansetron (ZOFRAN) tablet 8 mg, 8 mg, oral, Q12H PRN, Yifan Young MD, 8 mg at 07/[address] (NOXAFIL) tablet 300 mg, 300 mg, oral, DAILY, Yifan Young MD, 300 mg at 07/10/19 1005 potassium chloride IV (central line) 40 mEq, 40 mEq, intravenous, PRN, Stopped at 07/09/19 1105 OR potassium chloride IV (central line) 60 mEq, 60 mEq, intravenous, PRN, Yifan agnel MD, Stopped at 07/10/19 0953 potassium chloride SR (K-DUR) tablet 40 mEq, 40 mEq, oral, PRN, Yifan Young MD potassium phosphate IV (CENTRAL LINE) 30 mmol, 30 mmol, intravenous, PRN OR potassium p hosphate IV (CENTRAL LINE) 40 mmol, 40 mmol, intravenous, PRN, Yifan Young MD prochlorperazine (COMPAZINE) injection 5-10 mg, 5-10 mg, intravenous, Q6H PRN, LACY Escobar, 10 mg at 07/08/19 1846 prochlorperazine (COMPAZINE) tablet 5-10 mg, 5-10 mg, oral, Q6H PRN, Yifan Young MD, 5 mg at 07/08/19 0149 rOPINIRole (REQUIP) tablet 0.5 mg, 0.5 mg, oral, QPM, Yifan Young MD, 0.5 mg at 07/09 205 sodium phosphate IV 30 mmol, 30 mmol, intravenous, PRN, Yifan Young MD sodium phosphate IV 40 mmol, 40 mmol, intravenous, PRN, Yifan Young MD tacrolimus capsule 1 mg, 1 mg, oral, BID (08 and 18), Olya Steven MD, 1 mg at 07/10/19 0 953 triamcinolone acetonide (KENALOG) 0.1 % ointment, , topical, BID PRN, Yifan Young MD ursodiol (ACTIGALL) tablet 500 mg, 500 mg, oral, BID, Yifan Young MD, 500 mg at 07/10 1005 valACYclovir (VALTREX) tablet 500 mg, 500 mg, oral, BID, Yifan Young MD, 500 mg at 1005 Allergies: Cefepime and Sulfa (sulfonamide antibiotics) Physical Exam Tm 37.1 VS: Ht 1.568 m (5' 1.73"), Wt 56.2 kg (124 lb), BP 150/66, Pulse 59, Temperature 36.8 C ( 98.2 F), Temperature source Oral, RR 16, SpO2 94%, BMI 22.88 kg/(m^2). Facility age limit for growth percentiles is 18 years. Gen: NAD, comfortable OP: clear mucus membranes, no lesions Lungs: clear bilaterally Heart: regular, no appreciable murmur Abdomen: +BS, soft, NT/ND Skin: no rash or lesions Ext: no edema Line Site: looks OK Diagnostic Tests: Recent Labs: Lab Results Component Value Date WBC 4.23 07/10/2019 RBC 2.44 (L) 07/10/2019 HB 6.7 (L) 07/10/2019 HCT 22.1 (L) 07/10/2019 MCV 90.6 07/10/2019 MCHC 30.3 (L) 07/10/2019 RDW 56.4 (H) 07/10/2019 PLT 126 (L) 07/10/2019 NEUTROPERC 72.8 (H) 07/10/2019 LYMPHPERC 18.0 07/10/2019 MONOPERC 6.6 07/10/2019 EOSPERC 0.0 (L) 07/10/2019 BASOPERC 0.2 07/10/2019 ATYPICALPCT 1.1 (H) 05/16/2019 NEUTROPHILCO 3.08 07/10/2019 MONOCYTECO 0.28 07/10/2019 EOSCO 0.00 07/10/2019 BASOPHILCO 0.01 07/10/2019 Lab Results Component Value Date NA 139 07/10/2019 K 4.0 07/10/2019 CL 107 07/10/2019 BICARB 26 07/10/2019 BUN 9 07/10/2019 CR 0.62 07/10/2019 GLU 112 (H) 07/10/2019 CA 8.1 (L) 07/10/2019 Lab Results Component Value Date TBILI 0.6 07/10/2019 AP 77 07/10/2019 TP 5.4 (L) 07/10/2019 ALB 3.0 (L) 07/10/2019 AST 11 07/10/2019 ALT 7 07/10/2019 Lab Results Component Value Date CMVQUANTPCR Undetected 07/07/2019 CMVQUANTPCR Undetected 07/01/2019 Blood cx 07/09/19 no growth Assessment/Recs: 53 yo F wit MDS s/p dCBT 04/22/19 admitted 1/9 with diarrhea thought perhaps GVHD s/p flex sig 07/08 and empiric high dose steroids, also found to have RLL focal consolidation associa martha with nonproductive cough x several weeks Discussed with Pulmonary - can't access infected area but can get close. I think it's worth trying to get dx by BAL since other alternative is VATS. Please send BAL for broad range bacterial/fungal/mycobacterial PCR (to [facility]) in addito n to standard studies. If need to ration material, no need to send RVP, PjP stain, CMV PCR, or HSV/VZV PCR Continue current antimicrobials for now Will follow Paul Landon MD - 07/09/2019 1:59 PM PSTFormatting of this note might be different from the origi nal. TRANSPLANT INFECTIOUS DISEASES NEW CONSULT Asked by Dr Rooney to see patient re: pulmonary nodule/pneumonia Patient seen & examined by me. Events noted & chart reviewed. Ms. Camarillo is a 53 y.o. year old female with MDS s/p dCBT (CMV R-, Toxo R-) on 04/22/19 c/ b only S mitis BSI on 04/28/19 who presented 07/07 with increasing abd pain, diarrhea over the past several weeks. Has had longstanding loose stools since transplant but diarrhea had inc reased in frequency over the past 2-3 weeks. No N/V, fevers, chills, night sweats. Does note onset of Nonproductive cough over past ~ 2 weeks mainly at night and without ple urisy or dyspnea No URI sx, sinus pain/pressure, headaches No ill contacts On admission, started on prednisone 1 mg/kg/day empirically for presumed aGVHD of GI tract Flex sig performed 07/08: "The rectum and rectosigmoid are normal. Biopsied to rule out GvHD ." Prophylaxis: Posaconazole - level 0.7 on 04/28/19 (dose not changed) letermovir Valacyclovir Dapsone ROS: Comprehensive ROS performed and negative except for what is mentioned above in the HPI. Past Medical History: Past Medical History: Diagnosis Date Fibroid HTN (hypertension) Malignant neoplasm (HCC) Miscarriage Current Medications: Current Facility-Administered Medications: acetaminophen (TYLENOL) ta blet 650 mg, 650 mg, oral, Q4H PRN, Yifan Young MD escitalopram oxalate (LEXAPRO) tablet 20 mg, 20 mg, oral, DAILY, Yifan Young MD, 20 m g at 07/09/19 0919 magnesium sulfate in water IV (RTU) 4 g, 4 g, intravenous, PRN, Yifan Young MD magnesium sulfate IV 8 g, 8 g, intravenous, PRN, Yifan Young MD methylPREDNISolone sod succ (SOLU-MEDROL) injection 30 mg, 30 mg, intravenous, BID, Olya Steven MD, 30 mg at 07/09/19 0510 omeprazole (PRILOSEC) capsule 40 mg, 40 mg, oral, DAILY, LACY Fung, 40 mg at 05/18 0919 ondansetron (ZOFRAN) injection, , , , ondansetron (ZOFRAN) tablet 8 mg, 8 mg, oral, Q12H PRN, Yifan Young MD, 8 mg at 07/09 0920 pentamidine (PENTAM) IV 300 mg, 300 mg, intravenous, ONCE, LACY Fung posaconazole DR (NOXAFIL) tablet 300 mg, 300 mg, oral, DAILY, Yifan Young MD, 300 mg at 07/09/19 0919 potassium chloride IV (central line) 40 mEq, 40 mEq, intravenous, PRN, Stopped at 07/09/19 1105 OR potassium chloride IV (central line) 60 mEq, 60 mEq, intravenous, PRN, Yifan angel MD potassium chloride SR (K-DUR) tablet 40 mEq, 40 mEq, oral, PRN, Yifan Young MD potassium phosphate IV (CENTRAL LINE) 30 mmol, 30 mmol, intravenous, PRN OR potassium p hosphate IV (CENTRAL LINE) 40 mmol, 40 mmol, intravenous, PRN, Yifan Young MD prochlorperazine (COMPAZINE) injection 5-10 mg, 5-10 mg, intravenous, Q6H PRN, LACY Escobar, 10 mg at 07/08/19 1846 prochlorperazine (COMPAZINE) tablet 5-10 mg, 5-10 mg, oral, Q6H PRN, Yifna Young MD, 5 mg at 07/08/19 014 rOPINIRole (REQUIP) tablet 0.5 mg, 0.5 mg, oral, QPM, Yifan Young MD, 0.5 mg at 07/08 sodium phosphate IV 30 mmol, 30 mmol, intravenous, PRN, Yifan Young MD sodium phosphate IV 40 mmol, 40 mmol, intravenous, PRN, Yifan Young MD tacrolimus capsule 1 mg, 1 mg, oral, BID ( and 18), Olya Steven MD triamcinolone acetonide (KENALOG) 0.1 % ointment, , topical, BID PRN, Yifan Young MD ursodiol (ACTIGALL) tablet 500 mg, 500 mg, oral, BID, Yifan Young MD, 500 mg at 07/09 valACYclovir (VALTREX) tablet 500 mg, 500 mg, oral, BID, Yifan Young MD, 500 mg at 918 Allergies: Cefepime and Sulfa (sulfonamide antibiotics) Past Soc History: reports that she quit smoking about 15 years ago. Her smoking use includ ed cigarettes. She has a 42.00 pack-year smoking history. She has never used smokeless tobac co. She reports previous alcohol use. She reports that she does not use drugs. 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 Family history otherwise noncontributory. Relevant Infectious Disease History: as in HPI Pets: none Immunizations: There is no immunization history on file for this patient. Physical Exam Afebrile since admission VS: Ht 1.568 m (5' 1.73"), Wt 57.5 kg (126 lb 11.2 oz), BP 128/65, Pulse 72, Temperature 37 .1 C (98.8 F), Temperature source Oral, RR 16, SpO2 94%, BMI 23.38 kg/(m^2). Facility a ge limit for growth percentiles is 18 years. Gen: NAD, comfortable HEENT: no conjunctival petechiae, no scleral icterus, no sinus tap tenderness OP: clear mucus membranes, no lesions Neck: supple, no masses Nodes: no palpable lymphadenopathy Lungs: clear bilaterally Heart: regular, no appreciable murmur Abdomen: +BS, soft, NT/ND Skin: no rash or lesions Ext: no edema Neuro: grossly nonfocal exam Line Site: clean, no e/o infection Diagnostic Tests: Recent Labs: Lab Results Component Value Date WBC 4.17 07/09/2019 RBC 2.51 (L) 07/09/2019 HB 7.0 (L) 07/09/2019 HCT 23.3 (L) 07/09/2019 MCV 92.8 07/09/2019 MCHC 30.0 (L) 07/09/2019 RDW 57.9 (H) 07/09/2019 PLT 206 07/09/2019 NEUTROPERC 75.6 (H) 07/09/2019 LYMPHPERC 16.8 (L) 07/09/2019 MONOPERC 5.0 07/09/2019 EOSPERC 0.0 (L) 07/09/2019 BASOPERC 0.0 07/09/2019 ATYPICALPCT 1.1 (H) 05/16/2019 NEUTROPHILCO 3.15 07/09/2019 MONOCYTECO 0.21 07/09/2019 EOSCO 0.00 07/09/2019 BASOPHILCO 0.00 07/09/2019 Lab Results Component Value Date NA 142 07/09/2019 K 3.3 (L) 07/09/2019 CL 109 (H) 07/09/2019 BICARB 23 07/09/2019 BUN 10 07/09/2019 CR 0.60 07/09/2019 GLU 138 (H) 07/09/2019 CA 8.5 (L) 07/09/2019 Lab Results Component Value Date TBILI 0.7 07/09/2019 AP 84 07/09/2019 TP 5.6 (L) 07/09/2019 ALB 2.9 (L) 07/09/2019 AST 9 07/09/2019 ALT 7 07/09/2019 Serum CRAG negative C Diff toxin negative Lab Results Component Value Date CMVQUANTPCR Undetected 07/07/2019 CMVQUANTPCR Undetected 07/01/2019 CT A/P 07/07: Mild diffuse pericolonic stranding and colonic thickening most evident in the r ight and transverse colon, which can be seen in the setting of typhlitis or inflammatory/inf ectious colitis versus colonic GVHD. Peripheral consolidative opacity within the right lower lobe with additional scattered rig ht lower and middle lobe groundglass opacities is favored to represent pneumonia. However, g iven the, the shape and distribution of the right lower lobe opacity, pulmonary infarct coul d have a similar appearance in the appropriate clinical setting. CT chest 07/08: Nodular area of focal consolidation with surrounding groundglass opacities i n the right lower lobe, as well as scattered groundglass and tree-in-bud opacities in the ri ght middle lobe and lingula. These findings were not present in the prior chest CT from 01/13 and favor infection. In the setting of immunocompromised status, atypical infections a re consideration including fungal given nodular appearance. Imaging follow-up to full resolu tion recommended after appropriate treatment. More discrete nodule in the lingula measuring 5 mm is stable compared to imaging from 01/10/2019. Attention on follow-up. Assessment/Recs: 53 yo F with MDS s/p dCBT admitted with several weeks worth of diarrhea and abd pain and co ugh, found to have RLL consolidation. 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 Borderline posa level of 0.7 on 04/28 may increase suspicion for Mucorales. Less likely Asp ergillus Given uncertainty as to etiology and especially now that she's on high dose steroids, obtai davida a dx is imperative. Suggest Pulmonary eval for BAL, although location of the infiltrate may preclude accurate sampling. If Pulmonary unable to reach area involved, consider Thorac ic Surgery evaluation for VATS biopsy/resection Continue posaconazole for now given clinical stability and indolent course thus far Repeat posa trough pending. Can stop pip/tazo as this does not seem like typical bacterial process Can stop letermovir as pt is CMV R- Continue valacyclovir and dapsone prophylaxis Recs d/w primary team Will follow Madison Johnson, PharmD - 07/09/2019 11:17 AM PST 07/09/2019 11:17 AM Pharmacy Services: Tacrolimus Immunosuppression Therapy Note Current physician: Nevin Mid-level practitioner: Rubio Diagnosis: Transplant type: Allo full intensity Transplant date: 04/22/19; Today is day +78 Study Protocol: yes - [place] [id number] Subjective/Objective: Analy Camarillo is a 53 year old female with a history of MDS-EB2 s/p FluCyTBI DUCBT pre sented with abdominal pain, nausea, diarrhea 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 Allergies: Allergies Allergen Reactions Cefepime Rash Sulfa (Sulfonamide Antibiotics) Hives Current Medication: Tacrolimus Dose and route of administration: 0.5 mg PO BID Number of doses received since last dose change: since 06/24 Interacting medications/pertinent medication changes: posaconazole at steady state; discont inuing letermovir today Evidence of toxicity or adverse events: no Active GVHD: suspected GI (biopsies pending), history of skin Labs: CREATININE PLASMA (LAB) (mg/dL) Date Value 07/09/2019 0.60 07/08/2019 0.55 (L) 07/07/2019 0.64 Immunosuppressant level: tacrolimus TACROLIMUS (FK 506) (ng/mL) Date Value 07/09/2019 3.6 (L) Target drug level: 5-15 (per study) Drug level drawn at appropriate time: yes Date (Day + ) Level Dose Comments 07/09/19 3.6 0.5 mg PO BID Increase to 1 mg PO BID Assessment/Plan: - Current drug level is below range. - The patient s kidney function is stable and liver function is stable. - Recommend to increase dose to 1 mg PO BID (team would like to continue oral dosing for no w given low volume stool output). - Next drug level is ordered for Thursday at 0900 as a trough just prior to AM dose. [facility] will continue to follow and make recommendations as drug levels are available or the patient s clinical status changes. Please page the Oncology Pharmacis t (#[phone]) or call central inpatient pharmacy ([phone]) with questions. Madison Brown, PharmD So roman MD - 07/08/2019 1:42 PM PSTAssociated Order(s): IP CONSULT TO GASTROENTEROLOGY Gastroenterology Consult Note REASON FOR CONSULT: Rule out GvHD REFERRING TEAM/ATTENDING: Olya Steven MD IMPRESSION: Analy Camarillo is a 53 y.o. female with history of MDS s/p Flu/cy/TBI conditioned URD c ord on 04/22/2019 now on tacrolimus who presents with nonbloody diarrhea since April 2019 with worsening over the last 2 weeks in the setting of new lower abdominal cramping and N/V . Reassuringly C difficile testing negative but agree with work-up for other infectious proc esses that may be at play. Also agree that GvHD in the ddx, especially given skin findings, for which will plan for EGD and flex-sig (EGD given upper symptoms; F-S given highest yield for GvHD). While colitis seen on CT in right colon, given yield of rectal biopsies for GvHD, do not feel risks of full colonoscopy outweigh benefits at this juncture. RECOMMENDATIONS: Keep NPO Plan for EGD and flex-sig later today Agree with infectious work-up in process Thank you for this consult; we will continue to follow. This plan was discussed and formula martha with the gastroenterology attending, Dr. Villanueva. So Drummond MD Gastroenterology Fellow Pager: [phone] HISTORY OF PRESENT ILLNESS Analy Camarillo is a 53 y.o. female with a past medical history significant for MDS s/p Flu/cy/TBI conditioned URD cord on 04/22/2019 now on tacrolimus, admitted with abdominal jamey n. N/V, and diarrhea. She feeling fairly well after discharge from her BMT in April 2019. Initially some diarrhea while in-house but had largely resolved. Prior to all this 1 bowel movement per day. Shortly thereafter nonbloody diarrhea began. Initially quite well controll ed with Imodium as needed. Over the last 2 weeks has noted increased diarrhea - anywhere bet ween 2-8 bowel movements per day. In this same time frame, she has noted nausea with two epi sodes of nonboody emesis (emesis occurring yesterday), lower abdominal cramping (worse leadi ng up to bowel movements), and increased urgency. She denies any reflux symptoms or dysphagi a/odynophagia. Does note new rash - responding to topical steroids. Since admission, started on empiric IV steroids for possible GvHD with infectious work-up in play (C diff negative, GI pathogen pa bg ordered). CT A/P, as below with some colitis and question of consolidation suggestive of pneumonia -- though denies any respiratory symptoms. NSAIDs and anticoagulants: Denies. Surgical history: History of hysterectomy. Family history: Noncontributory for GI or liver disease. No FH of GI malignancy. Psychosocial: Alcohol: denies, Tobacco: denies, Drugs: denies. REVIEW OF SYSTEMS All other ROS was performed and is negative other than that stated in the HPI. PAST MEDICAL HISTORY Past Medical History: Diagnosis Date Fibroid HTN (hypertension) Malignant neoplasm (HCC) Miscarriage FAMILY HISTORY Family History Problem Relation Heart Attack Mother Melanoma Father Liver Disease Father Alcohol abuse Father Stroke Sister Dementia Sister Diabetes Sister Brain cancer Brother Alcohol abuse Brother Brain cancer Aunt SOCIAL HISTORY Social History Socioeconomic History Marital status: Single [...] Last attempt to quit: 06/29/2004 Years since quittin.0 Smokeless tobacco: Never Used Substance and Sexual Activity Alcohol use: Not Currently Comment: very occasionally Drug use: Never Sexual activity: Not on file Lifestyle Physical activity: Days per week: Not on file Minutes per session: Not on file Stress: Not on file Relationships Social connections: Talks on phone: Not on file Gets together: Not on file Attends lutheran service: Not on file Active member of club or organization: Not on file Attends meetings of clubs or organizations: Not on file Relationship status: Not on file Other Topics Concern Not on file Social History Narrative Lives with niece in [facility] OUTPATIENT MEDICATIONS No current facility-administered medications on file prior to encounter. Current Outpatient Medications on File Prior to Encounter Medication Sig Dispense Refill beclomethasone 1 mg/mL oral suspension (compound) Take 1 mL by mouth four times daily. Indications: treatment to prevent reaction after bone marrow transplant 250 mL 3 dapsone 100 mg oral tablet Take 1 tablet by mouth once daily. 30 tablet 5 escitalopram oxalate 20 mg oral tablet Take 1 tablet by mouth once daily. Indications: major depressive disorder 30 tablet 5 famotidine 20 mg oral tablet Take 1 tablet by mouth once daily at bedtime. Indications: prevention of inflammation of stomach 30 tablet 2 hydrocortisone 2.5 % topical cream with perineal applicator Apply to affected area thre e times daily as needed. Wash and dry the rectal area, gently massage a small amount into th e affected area. 28.35 g 0 letermovir 480 mg oral tablet Take 1 tablet by mouth once daily. Take this medication t hrough day +100 (07/31/2019) Indications: prevention of cytomegalovirus infection after allo geneic hematopoietic stem cell transplant 30 tablet 2 loperamide 2 mg oral capsule Take 1 capsule by mouth as needed for diarrhea. Do not exc eed max dose of 16 mg/day. 30 capsule 0 loratadine 10 mg oral tablet Take 1 tablet by mouth once daily as needed. Indications: bone pain. 30 tablet 0 ondansetron 8 mg oral tablet Take 1 tablet by mouth every twelve hours as needed for na usea/vomiting. Indications: nausea and vomiting caused by cancer drugs [address] 100 mg oral tablet,delayed release (DR/EC) Take 3 tablets by mouth once daily. Indications: prevention of fungal infection 90 tablet 3 potassium chloride SR 10 mEq oral tablet,ER particles/crystals Take 2 tablets by mouth once daily. 60 tablet 0 prochlorperazine 5 mg oral tablet Take 1-2 tablets by mouth every six hours as needed f or nausea/vomiting. Max dose: 40 mg/day 30 tablet 1 rOPINIRole 0.5 mg oral tablet Take 1 tablet by mouth once daily in the evening. 30 tabl et 3 tacrolimus 0.5 mg oral capsule Effective 06/24/2019: Take 0.5 mg by mouth every mornin g and 0.5 mg every evening. Combine 0.5mg and 1mg capsules to make your current dose. HOLD o n days of clinic and bring with you to take AFTER your labs are drawn. Indications: preventi on of GVHD 90 capsule 3 tacrolimus 1 mg oral capsule Effective 06/24/2019: Take 0.5 mg by mouth every morning and 0.5 mg every evening. Combine 0.5mg and 1mg capsules to make your current dose. HOLD on days of clinic and bring with you to take AFTER your labs are drawn. Indications: prevention of graft versus host disease 90 capsule 3 traMADol 50 mg oral tablet Take 1 tablet by mouth every six hours as needed for moderat e pain. 30 tablet 0 triamcinolone acetonide 0.1 % topical ointment Apply a thin film to the affected areas twice daily as needed . Indications: skin rash 15 g 0 ursodiol 500 mg oral tablet Take 1 tablet by mouth two times daily. Take this medicatio n through day +90 (07/21/2019) Indications: prevention of veno-occulsive disease 60 tablet 2 valACYclovir 500 mg oral tablet Take 1 tablet by mouth two times daily. 60 tablet 11 INPATIENT MEDICATIONS Medications Scheduled Medication Dose/Rate, Route, Frequency Last Action dapsone tablet 100 mg 100 mg, oral, DAILY Given: 07/08 38 escitalopram oxalate (LEXAPRO) tablet 20 mg 20 mg, oral, DAILY Given: 07/08 38 letermovir (PREVYMIS) tablet 480 mg 480 mg, oral, DAILY Given: 07/08 38 methylPREDNISolone sod succ (SOLU-MEDROL) injection 30 mg 30 mg, IV, BID Given: 07/08 617 omeprazole (PRILOSEC) capsule 40 mg 40 mg, oral, DAILY Ordered ondansetron (ZOFRAN) injection No Dose/Rate Ordered piperacillin-tazobactam (ZOSYN) IV (minibag+) 4.5 g 4.5 g, IV, Q6H Ordered posaconazole DR (NOXAFIL) tablet 300 mg 300 mg, oral, DAILY Given: 07/08 37 rOPINIRole (REQUIP) tablet 0.5 mg 0.5 mg, oral, QPM Given: 07/08 38 sodium chloride (NS) 0.9 % bolus 1,000 mL 1,000 mL, IV, ONCE Ordered tacrolimus capsule 0.5 mg 0.5 mg, oral, BID () Given: 07/08 38 ursodiol (ACTIGALL) tablet 500 mg 500 mg, oral, BID Given: 07/08 38 valACYclovir (VALTREX) tablet 500 mg 500 mg, oral, BID Given: 07/08 38 PRN Medication Dose/Rate, Route, Frequency Last Action acetaminophen (TYLENOL) tablet 650 mg 650 mg, oral, Q4H PRN Ordered magnesium sulfate in water IV (RTU) 4 g 4 g, IV, PRN Ordered magnesium sulfate IV 8 g 8 g, IV, PRN Ordered ondansetron (ZOFRAN) tablet 8 mg [...] 40 mmol, IV, PRN Ordered prochlorperazine (COMPAZINE) injection 5-10 mg 10 mg, IV, Q6H PRN Given: 07/08 100 prochlorperazine (COMPAZINE) tablet 5-10 mg 5 mg, oral, Q6H PRN Given: 07/08 148 sodium phosphate IV 30 mmol 30 mmol, IV, PRN Ordered sodium phosphate IV 40 mmol 40 mmol, IV, PRN Ordered triamcinolone acetonide (KENALOG) 0.1 % ointment No Dose/Rate, top, BID PRN Ordered Incomplete Documentation Medication Dose/Rate, Route, Frequency Due tacrolimus capsule 0.5 mg 0.5 mg, oral, BID () 07/08 1031 ALLERGIES Allergies Allergen Reactions Cefepime Rash Sulfa (Sulfonamide Antibiotics) Hives PHYSICAL EXAM BP 125/55 (BP Location: Right upper arm) | Pulse 65 | Temp 36.3 C (97.3 F) | Resp 18 | Ht 1.568 m (5' 1.73") | Wt 57.5 kg (126 lb 12.2 oz) | SpO2 97% | BMI 23.39 kg/m | BSA 1.58 m : Systolic (24hrs), Av , Min:125 , Max:143 / Diastolic (24hrs), Av, M in:55, Max:79 Pulse Av Min: 65 Max: 75 Temp Av.7 C (98.1 F) Min: 36.3 C (97.3 F) Max: 37 C (98.6 F) Resp Av.4 Min: 16 Max: 18 SpO2 Av.7 % Min: 95 % Max: 100 % GEN: NAD, pleasant HEENT: MMM, no scleral icterus RESP: CTAB anteriorly CV: RRR, no MRG ABD: tender in lower quadrants, non distended, no rebound or guarding MSK: no peripheral edema LABS and IMAGING Recent Labs 07/07/19 0907/07/19 17207/08/19 0001 WBC 6.66 4.41 4.02 HB 8.4* 7.2* 7.1* HCT 27.7* 23.9* 23.1* PLT 239 123* 198 NEUTROPERC 59.5 80.3* 91.0* LYMPHPERC 17.4* 13.2* 6.0* MONOPERC 11.9* 2.7* 1.0* BASOPERC 0.2 0.2 0.0 EOSPERC 9.6* 1.8 1.0 Recent Labs 07/07/19 0907/07/19 17207/08/19 0001 AST 9 7 8 ALT 9 7 <6 TBILI 0.9 0.7 0.6 AP 99* 99* 96 ALB 3.1* 2.9* 2.9* TP 6.1* 5.7* 5.7* Recent Labs 07/01/19 1149 07/07/19 0941 07/07/19 17207/08/19 0001 GLU 112* 161* 184* 137* BUN 13 9 7 5* CR 0.96 0.88 0.64 0.55* ALB 3.5 3.1* 2.9* 2.9* CA 8.8 8.5* 8.0* 8.2* PO4 3.2 3.1 -- 2.9 NA 137 140 138 138 CL 102 105 110* 109* BICARB 17* 20* 20* 23 Lab Results Component Value Date MG 2.7 07/08/2019 Lab Results Component Value Date INRPT 0.95 05/16/2019 CT A/P (07/07/19): Mild diffuse pericolonic stranding and colonic thickening most evident in the right and tra nsverse colon, which can be seen in the setting of typhlitis or inflammatory/infectious coli tis versus colonic GVHD. Peripheral consolidative opacity within the right lower lobe with additional scattered righ t lower and middle lobe groundglass opacities is favored to represent pneumonia. However, gi ronald the, the shape and distribution of the right lower lobe opacity, pulmonary infarct could have a similar appearance in the appropriate clinical setting. Trace pelvic fluid. Associated attestation - Aniya Villanueva MD - 07/08/2019 5:42 PM PST Attending Attestation: I personally interviewed the patient, performed the relevant elements of the physical exami nation, and formulated the assessment and plan with Dr. Drummond on 07/08/19. See Dr. Drummond's note for further details. Aniya Villanueva MD [employer] Supervisorfluid designer Department of Gastroenterologydocumented in this encounter ED Notes Keena Steel RN - 07/07/2019 10:39 PM PSTRN Admission/Transfer Note Reason for admission: abdominal cramping, ongoing diarrhea, referred for GI GVHD Pertinent physical findings (Focused assessment, Pain/discomfort, Neuro, Cards/tele and Res p assessment): patient Alert and Oriented x4, no CP or SOB, abdominal cramping after taking medication or eating, relieved with episodes of liquid diarrhea, patient currently pain free . Patient had follow up in clinic and labs done as well as potassium and magnesium replaceme nt. No fever or chills. New dressing to Groshong. Patient-specific pain target: (0) Pertinent PMHx (See also Code Status, MAR, Results, Allergies, Medication reconciliation & Medical History): Hx of MDS, BMT 04/16, Full code, allergies to cefepime and sulfa Restrictions: NPO after midnight Psych/social assessment & interventions: No pertinent issues noted. No interventions needed . Safety risks (Identify patient triggers/safety concerns & effective interventions): no safe ty risks noted Isolation status: Contact Plus Legal status: Voluntary Medical/psychosocial stability: Moderately Stable Transport/transitions concerns as related to stability: None Orders to follow up on: procedure in AM? Belongings check: Completed; N/A Report called to: Sheila BUTLER in 14K unit. MD report called? yes Education provided to the patient/family: n/a Keena Banegas RN - 07/07/2019 8:29 PM PSTPt resting in bed, NAD no martha, no needs at this time. 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 Patient had follow up in clinic and labs done as well as potassium and magnesium replaceme nt. No fever or chills. New dressing to Groshong. Patient concern (Primary reason for coming to the ED): on going diarrhea Psych/social assessment & interventions: No pertinent issues noted. No interventions needed . Safety risks: no safety risks noted Isolation status Contact Plus Legal status: Voluntary Medical/psychosocial stability: Moderately Stable Transition concerns as related to stability: none Alarm parameter changes: none Care R/T comfort, hygiene, education (i.e., activity, environment, toileting, skin, ADLs, e tc.): patient is up independently and aware of need for stool specimen hat in toilet. Orders to follow up on: CT scan Anticipated/pending procedures or disposition: CT scan Glucose 184, H & H 7.2 & 23.9 platelet 123 Mag3.7 K 4.1 evin Velásquez RN - 07/07/2019 6:39 PM PSTPatient with hx of myelodysplastic syndrome (MDS) s/p MA CB sun splant on 04/22/19 patient was in clinic today for post transplant follow up, has not been f eeling well, increased # of bowel movements and abdominal cramping taking imodium with no im provement. Patient states that she starts cramping after taking her medication or eating and worsens until she has a BM which is liquid and then cramping improves. Referred here for possible GI GVHD. Patient with decreased appetite, + fatigue, no fever or chills, no chest pain or SOB. Patie nt has on going rash to upper back shoulders and chest which has been improving with cream. Patient had labs and dressing change to [place]shong today. Patient received 1 L NS 8 grams IV mag for a level of 1.1 and 60 meq K for k level of 3.0 4 0 meq IV and 20 meq PO. Patient currently denies any abdominal pain. Resting quietly in bed, NS infusing to [place]shon g on pump. Patient awaiting CT scan. Brandi Elias R N - 07/07/2019 5:25 PM PSTDr. Acuna at bedside assessing pt. ilan Acuna MD - 07/07/2019 5:04 PM PSTFormat ting of this note might be different from the original. ED Shared Provider Note, co-authored by Milan Acuna MD and Aniya Calloway MD: HPI Patient is a 53 y/o F with pmhx of DVT in bilateral upper extremities, MDS s/p Bone mar row transplant (04/22/2019) who presents with abdominal pain. Pain started 2 weeks ago and p rogressively worsened. Located bilateral lower quadrants, described as crampy, waxes and wan es, worsens with food, when present 02/05, denies prior episodes. Reporting 4 episodes of julia rrhea daily, non bloody and one episode fo vomiting. Pt with nausea during episodes. Pt has taken imodium for diarrhea however does not help with cramping. Denies fever, headache, ches t pain, shortness of breath, dysuria, hematuria. Reporting decreased appetite. Patient goes twice weekly for infusions of IV fluids, magnesium, and potassium. Denies prior abdominal rivas rgeries. Currently on tacrolimus and salumedrol. PCP: LACY Perez Patient Active Problem List Diagnosis Date Noted Immunocompromised state due to drug therapy 04/20/2019 Pancytopenia (HCC) 04/20/2019 Stem cell transplant candidate 04/15/2019 Acute deep vein thrombosis (DVT) of both upper extremities ([facility]) 01/17/2019 Overview Note: Developed while hospitalized for shingles and had PICC in MDS (myelodysplastic syndrome) ([facility]) 11/30/2018 Past Medical History Diagnosis Date HTN (hypertension) Fibroid Miscarriage Malignant neoplasm (HCC) Past Surgical History Procedure Date Hysterectomy 2007 Breast fibroid 1979 fibroid removal left breast Medications Prior to Admission Medications Prescriptions Last Dose Informant Patient Reported? Taking? beclomethasone 1 mg/mL oral suspension (compound) No No Sig: Take 1 mL by mouth four times daily. Indications: treatment to prevent reaction after bone marrow transplant dapsone 100 mg oral tablet 07/06/2019 at Unknown time No Yes Sig: Take 1 tablet by mouth once daily. escitalopram oxalate 20 mg oral tablet 07/06/2019 at Unknown time No Yes Sig: Take 1 tablet by mouth once daily. Indications: major depressive disorder famotidine 20 mg oral tablet 07/06/2019 at Unknown time No Yes Sig: Take 1 tablet by mouth once daily at bedtime. Indications: prevention of inflammation of stomach hydrocortisone 2.5 % topical cream with perineal applicator Not Taking at Unknown time No No Sig: Apply to affected area three times daily as needed. Wash and dry the rectal area, gent ly massage a small amount into the affected area. letermovir 480 mg oral tablet Unknown at Unknown time No No Sig: Take 1 tablet by mouth once daily. Take this medication through day +100 (07/31/2019) Indications: prevention of cytomegalovirus infection after allogeneic hematopoietic stem david l transplant loperamide 2 mg oral capsule 07/06/2019 at Unknown time No Yes Sig: Take 1 capsule by mouth as needed for diarrhea. Do not exceed max dose of 16 mg/day. loratadine 10 mg oral tablet Not Taking at Unknown time No No Sig: Take 1 tablet by mouth once daily as needed. Indications: bone pain. ondansetron 8 mg oral tablet 07/06/2019 at Unknown time No Yes Sig: Take 1 tablet by mouth every twelve hours as needed for nausea/vomiting. Indications: nausea and vomiting caused by cancer drugs posaconazole DR 100 mg oral tablet,delayed release (DR/EC) 07/06/2019 at Unknown time No Yes Sig: Take 3 tablets by mouth once daily. Indications: prevention of fungal infection potassium chloride SR 10 mEq oral tablet,ER particles/crystals 07/06/2019 at Unknown time No Yes Sig: Take 2 tablets by mouth once daily. prochlorperazine 5 mg oral tablet 07/06/2019 at Unknown time No Yes Sig: Take 1-2 tablets by mouth every six hours as needed for nausea/vomiting. Max dose: 40 mg/day rOPINIRole 0.5 mg oral tablet 07/06/2019 at Unknown time No Yes Sig: Take 1 tablet by mouth once daily in the evening. tacrolimus 0.5 mg oral capsule 07/06/2019 at Unknown time No Yes Sig: Effective 06/24/2019: Take 0.5 mg by mouth every morning and 0.5 mg every evening. Co mbine 0.5mg and 1mg capsules to make your current dose. HOLD on days of clinic and bring wit h you to take AFTER your labs are drawn. Indications: prevention of GVHD tacrolimus 1 mg oral capsule Within last 30 days at Unknown time No Yes Sig: Effective 06/24/2019: Take 0.5 mg by mouth every morning and 0.5 mg every evening. Co mbine 0.5mg and 1mg capsules to make your current dose. HOLD on days of clinic and bring wit h you to take AFTER your labs are drawn. Indications: prevention of graft versus host diseas e traMADol 50 mg oral tablet Within last 7 days at Unknown time No Yes Sig: Take 1 tablet by mouth every six hours as needed for moderate pain. triamcinolone acetonide 0.1 % topical ointment 07/06/2019 at Unknown time No Yes Sig: Apply a thin film to the affected areas twice daily as needed . Indications: skin sandra h ursodiol 500 mg oral tablet 07/06/2019 at Unknown time No Yes Sig: Take 1 tablet by mouth two times daily. Take this medication through day +90 (07/21/19) Indications: prevention of veno-occulsive disease valACYclovir 500 mg oral tablet 07/06/2019 at Unknown time No Yes Sig: Take 1 tablet by mouth two times daily. Facility-Administered Medications: None Allergies Allergen Reactions Cefepime Rash Sulfa (Sulfonamide Antibiotics) Belkys reports that she quit smoking about 15 years ago. Her smoking use included cigarettes. She has a 42.00 pack-year smoking history. She has never used smokeless tobacco. She reports pr evious alcohol use. She reports that she does not use drugs. Social History Socioeconomic History Marital status: Single [...] Last attempt to quit: 06/29/2004 Years since quittin.0 Smokeless tobacco: Never Used Substance and Sexual Activity Alcohol use: Not Currently Comment: very occasionally Drug use: Never Sexual activity: Not on file Lifestyle Physical activity: Days per week: Not on file Minutes per session: Not on file Stress: Not on file Relationships Social connections: Talks on phone: Not on file Gets together: Not on file Attends lutheran service: Not on file Active member of club or organization: Not on file Attends meetings of clubs or organizations: Not on file Relationship status: Not on file Other Topics Concern Not on file Social History Narrative Lives with niece in [facility] Family History Problem Relation Heart Attack Mother Melanoma Father Liver Disease Father Alcohol abuse Father Stroke Sister Dementia Sister Diabetes Sister Brain cancer Brother Alcohol abuse Brother Brain cancer Aunt Review of Systems Complete ROS performed and negative except as noted in HPI. ED Triage Vitals BP Temp Heart Rate Pulse - Plethysmograph Resp SpO2 07/07/19 1657 07/07/19 1657 07/07/19 1657 07/07/19 1848 07/07/19 1657 07/07/19 1657 130/68 36.6 C 75 69 pulses/min 18 100 % Physical Exam Constitutional: No acute distress. Calm, pleasant, interactive. HENT: No external evidence of trauma, dry mucus membranes Eyes: PER, EOMI, conjunctiva normal, no discharge. Neck: Normal range of motion, supple. Chest: Normal work of breathing with no respiratory distress. Cardiovascular: Normal rhythm. Periphery is well-perfused. Abdomen: Soft. No distention. Left lower quadrant abdominal tenderness with some rebound Skin: Warm, dry, no erythema, no rash. Extremities/Musculoskelatal: Normal range of motion. No significant edema. No significant d eformities noted. No tenderness to palpation. Neurologic: No focal deficits noted. Awake, alert, oriented. Facial features and movements are normal and symmetric. Moving all extremities spontaneously and with normal strength. Sensation intact to light touch. Gait intact. ED COURSE AND MEDICAL DECISION MAKING: In brief summary, Analy Camarillo is a 53 y.o. female who presents with progressively wo rsening abdominal pain and diarrhea I interpreted the vitals and note: afebrile, no tachycardia, no hypotension or significant hypertension, normal respiratory rate, appropriate oxygen saturation Initial DDx based on history and physical exam includes: Acute cholecystitis, choledocholit hiasis, appendicitis, infectious colitis, diverticulitis, mesenteric ischemia. Considered bu t doubt urinary tract infection, pyelonephritis, nephrolithiasis given my exam and her lack of urinary symptoms. Patient Given above plan for laboratory workup, imaging studies, and IV fluids. ED Course as of Jul 07 2222 Cheryl Jul 07, 2019 1804 LACTATE: 0.8 [JS] 1848 HEMOGLOBIN(!): 7.2 [JS] 1849 HEMATOCRIT(!): 23.9 [JS] 1849 PLATELET COUNT(!): 123 [JS] 1904 GLUCOSE, PLASMA (LAB)(!): 184 [JS] 2220 Spoke with Heme/onc fellow and BMT who accepted patient for admission and further abdo abdoul GVHD workup [JS] 222 CT abd/pelvis: No acute abnormality within the abdomen or pelvis to explain patient's symptoms.Peripheral consolidative opacity within the right lower lobe with additional scatte red right lower and middle lobe groundglass opacities is favored to represent pneumonia. How ever, given the, the shape and distribution of the right lower lobe opacity, pulmonary infar ct could have a similar appearance in the appropriate clinical setting. [JS] ED Course User Index [JS] Aniya Calloway MD In summary patient is a 53 y/o F with pmhx as mentioned above who presented with ongoing ab dominal pain, diarrhea concerning for complications related to GVHD although no acute abdomi nal findings on CT to suggest colitis, appendicitis, or diverticulitis. Per heme/onc team, p atient to have scope during admission for further workup. Of note CT with findings concernin g for RLL and middle lobe opacities concerning for pneumonia. Although she is afebrile, no h ypoxia, patient denies sob, and no cough. Labs notable for worsening anemia likely dilution al. Does not appear hemolytic at this time. Pt not reporting bloody stool. Normal lactate so doubt ischemia. She has hypermag on labs however she just received transfusion today. Given above patient to be admitted to BMT team for further workup and monitoring. Patient updated with plan. ED Medication Administration from 07/07/2019 1651 to 07/07/2019 2220 Date/Time Order Dose Route Action 07/07/2019 2135 iohexol (OMNIPAQUE) 350 mg iodine/mL injection 100 mL 100 mL intravenous I V Push 07/07/2019 1743 sodium chloride (NS) 0.9 % bolus 1,000 mL 1,000 mL intravenous New Bag 07/07/2019 1914 sodium chloride (NS) 0.9 % bolus 1,000 mL intravenous Rate/Dose Change Admit Requested: Jul 07, 2019 9:18 PM IMPRESSION: R10.84 Generalized abdominal pain R19.7 Diarrhea, unspecified type Z79.899 Immunocompromised state due to drug therapy PLAN, DISPOSITION AND FOLLOW-UP: -admit to BMT service New Prescriptions No medications on file Anali Mata RN - 07/07/2019 4:55 PM PSTSee ref note. Pt denies pain at this time. GVHD.Electronically sig kimberly by Anali Ayala RN at 07/07/2019 4:59 PM Basilia Chowdhury RN - 07/07/2019 4:10 PM CARRIE Anguiano: Cord blood transfusion recently. Now presents with GI upset, concern GVHD. Has groshong,dressing was changed in clinic today. Pt is neutropenic. Received 60mg IV solumedrol @1255 Coming POV documented in this en counter Miscellaneous Notes Plan of Care - Jerome Medel RN - 07/12/2019 4:02 PM PSTPatient discharged in stable condition and without complaints. AVS and all DC instructions, including updated medication list, reviewed. All personal belongings and medications were sent home with patient, having assisted them with double-checking their room for any items left behind. First dose of new steroid was given prior to discharge per communication with discharging pharmacist. Patient left unit via wheelchar with her caregiver, destination [facility] via fo ot and air tram. 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 Likely infection vs med related vs umbilical colitis 07/11 Diagnostic bronch done for RLL nodule As evidenced by: Falls and mobility: independent Mental status changes: a/ox4 Other: COMFORT/ANXIETY/BEHAVIOR Patient/Family Target: Analy will have minimal abd cramping Progress to Target: Improving As evidenced by: Pain: Abdominal pain resolved. Nausea: int nausea with pills. Likes PRN zofran with meds Bowel function: 2 episodes of diarrhea 07/11 w 650ml out. Increased output after increasing to gvh3 diet 07/10. Immodium PRN. Sleep:RLS- on Requip at HS. Some insomnia, Zyprexa helpful. Psych: Other: HYGIENE/INFECTION Patient/Family Target: Analy will not have GUNNAR Progress to Target: No Change As evidenced by: Skin: erythremic maculopapular rash to ears, bilateral shoulders down to mid back - much improved. [place] PRN (hasnt used) S/s of infection: GI Patho neg. CDiff Neg. Lung nodule seen on CT - poss fungal etiology? D iagnostic bronch on 07/11 Central line issues: Groshong last dressing change 07/07. Gauze under dressing to cover stitc hes that were poking through. Check with ID if its okay for gauze under dressing Other: RESTORATIVE MEASURES/SELF-MANAGEMENT Patient/Family Target: Analy will eat 3 meals per day. Progress to Target: No Change As evidenced by: PO intake: Diet advanced to GVH3 07/10 with some increase in stool output. Drinking fluids well. Mental status: Activity level: Other: NURSING ASSESSMENT & RECOMMENDATIONS FORWARD Nursing Assessment of Patient Stability Risk: Moderately stable Recommendations Forward: Orders to follow up on: -Give zofran ahead of 0900/2100 meds. - Pending BAL results. -Check with ID(?) about gauze under CVC dressing or if that should be avoided Labs still due: [place] trough before 0900 dose. 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 Nausea: int nausea with pills. Likes PRN zofran with meds Bowel function: 2 episodes of diarrhea 07/11-improving. Imodium not ordered at this time Sleep:RLS- on Requip at HS. Some insomnia, Zyprexa PRN. Psych: Other: HYGIENE/INFECTION Patient/Family Target: Analy will not have GUNNAR Progress to Target: No Change As evidenced by: Skin: erythremic maculopapular rash to ears, bilateral shoulders down to mid back - much improved S/s of infection: GI Patho neg. CDiff Neg. Lung nodule seen on CT - poss fungal etiology? D iagnostic bronch on 07/11 Central line issues: Groshong last dressing change 07/07 Other: RESTORATIVE MEASURES/SELF-MANAGEMENT Patient/Family Target: Analy will eat 3 meals per day. Progress to Target: No Change As evidenced by: PO intake: Diet advanced to GVH3. Tolerating increase well. Mental status: Activity level: Other: NURSING ASSESSMENT & RECOMMENDATIONS FORWARD Nursing Assessment of Patient Stability Risk: Moderately stable Recommendations Forward: Orders to follow up on: - Pending GVH patho vs umbilical colitis? 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 Nausea: int nausea with pills. Likes PRN zofran with meds (last given at 2100 with PM meds on 07/10) . Bowel function: Sleep:RLS- on Requip at HS. Some insomnia, Zyprexa PRN. Psych: Other: HYGIENE/INFECTION Patient/Family Target: Analy will not have GUNNAR Progress to Target: No Change As evidenced by: Skin: erythremic maculopapular rash to ears, bilateral shoulders down to mid back - much improved S/s of infection: GI Patho neg. CDiff Neg. Lung nodule - poss fungal etiology? Diagnostic b ronch on 07/11. Central line issues: Groshong last dressing change 07/07 Other: RESTORATIVE MEASURES/SELF-MANAGEMENT Patient/Family Target: Analy will eat 3 meals per day. As evidenced by: PO intake: Diet advanced to GVH. Tolerating increase well. Mental status: Activity level: Other: Recommendations Forward: Orders to follow up on: - Pending GVH patho vs umbilical colitis? - Bronch 07/11 around 1000. 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 Nausea: int nausea with pills. Likes PRN zofran with morning meds. Bowel function: mucoid stool x1 Sleep:RLS- on Requip at HS. Some insomnia, zyprexa available PRN. Psych: Other: HYGIENE/INFECTION Patient/Family Target: Analy will not have GUNNAR Progress to Target: No Change As evidenced by: Skin: erythremic maculopapular rash to ears, bilateral shoulders down to mid back - much improved S/s of infection: GI Patho neg. CDiff Neg. Lung nodule - poss fungal etiology? Plan for julia gnostic bronch tomorrow. Central line issues: Groshong last dressing change 07/07 Other: RESTORATIVE MEASURES/SELF-MANAGEMENT Patient/Family Target: Analy will eat 3 meals per day. As evidenced by: PO intake: Diet advanced to GVH 3 today. Tolerating increase well. Mental status: Activity level: Other: Recommendations Forward: Orders to follow up on: - Pending GVH patho vs umbilical colitis? - Bronch 07/11 around 1000. 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 Stage 2 GVH diet started, tolerating well (Likes chicken broth). Nausea: int nausea- denies overnight Bowel function: mucoid stool x2 overnight. GI patho panel negative. Sleep: had difficulty falling asleep, declined sleep aid. Psych: Other: HYGIENE/INFECTION Patient/Family Target: Analy will not have GUNNAR Progress to Target: No Change As evidenced by: Skin: erythremic maculopapular rash to ears, bilateral shoulders down to mid back - much improved S/s of infection: C. Diff Neg, further GI panel ordered results pending. Bathing issues: Central line issues: Groshong (last dressing change 07/07; valves changed on 07/09) Other: Recommendations Forward: Orders to follow up on: - Possible GVHD workup Labs still due: - K redraw (K= 2.9) Replacements needed: Mg (=1.4); K (=2.9) replacement started at 0224 on 07/10. 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 Stage 2 GVH diet started, tolerating well (Likes chicken broth). Nausea: int nausea- denies overnight Bowel function: stool specimen sent overnight. GI patho panel pending. Sleep: Psych: Other: HYGIENE/INFECTION Patient/Family Target: Analy will not have GUNNAR As evidenced by: Skin: erythremic maculopapular rash to ears, bilateral shoulders down to mid back - much improved S/s of infection: C. 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 Scheduled Kenalog -int belly cramping, reports mild tenderness w/ palpation. Stage 1 GVH diet started, tolera ting well (Likes chicken broth). Nausea: int nausea- denies overnight Bowel function: stool specimen sent overnight. Sleep: Psych: Other: HYGIENE/INFECTION Patient/Family Target: Analy will not have GUNNAR As evidenced by: Skin: erythremic maculopapular rash to ears, bilateral shoulders down to mid back - much improved S/s of infection: C. Diff Neg, further GI panel ordered Bathing issues: Central line issues: Groshong (last dressing change 07/07; valves changed on 07/09) Other: Recommendations Forward: Orders to follow up on: - Possible GVHD workup - CT of abd pending Labs still due: - Tac trough due 07/09 0845 Replacements needed: K+ ( K=3.3; infusion started at 0500), Mag replaced prior to transfer to [facility] Anticipated or pending procedures: Symptom management (next dose of pain/nausea meds, etc): Education needed: Other: andoff - Ever Saba RN - 07/08/2019 7:01 PM PSTNursing Handoff [facility] IP NURSE HANDOFF: [facility] course events: 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 Scheduled Kenalog -int belly cramping (denies today but has been NPO). Stage 1 GVH diet started tonight Nausea: int nausea - likes to have compazine before medications - given at 1845 Bowel function: still awaiting stool speciman for Viral panel. No stool today, even with 2 fleets enemas for GI prep Sleep: Psych: Other: As evidenced by: Skin: erythremic maculopapular rash to ears, bilateral shoulders down to mid back - much improved S/s of infection: C. Diff Neg, furth er GI panel ordered Bathing issues: Central line issues: Groshong (last dressing change 07/07) Other: Recommendations Forward: Orders to follow up on: - Possible GVHD workup, NPO since midnight - CT of abd pending Labs still due: - Stool sample for GI panel needing to be collected - Tac trough due 07/09 0500 Replacements needed: K+, Mag replaced prior to transfer to [facility] Anticipated or pending procedures: Symptom management (next dose of pain/nausea meds, etc): Education needed: Other: andoff - Katerina Frederick RN - 07/08/2019 6:08 PM PSTMeets Phase I Discharge Criteria (Stable For Transfer): Major deviations/events or pertinent findings of ivone-operative stay: Anticipated post-op needs/devices/follow up: Post GI procedure monitor for pain and bleedin g * No Diagnosis Codes entered * Surgical Procedure Planned - Actual Procedure Performed: * No procedures listed * Anesthesia: * No anesthesia type entered * Length of procedure: In Room/Out of Room: * Missing case tracking time(s) * * No surgeons found in log * OR positioning comments: Neuro: POSS Sedation Level: 1 Last pain medication given: Pain medication totals: See MAR Additional pain medication information: none Functional Epidural: No AIR ROUTE TRAFFIC CONTROLLER: No Respiratory: RR: 16 , O2 Sat: 95 % , O2 Delivery: None (room air) Breath Sounds: Ex IVAN: LLL: RUL: RLL: ADAN No Comment: Cardiac: BP: 151/73 HR: 56 GI: Nausea/Vomiting Status: No Signs/Symptoms: Interventions: Assessment: Comments: : Last void: Contact Name: Angelique Contact Number: [phone] Family contacted: No Comment: Belongings:none D Teaching Notes - Milan Lynn MD - 07/08/2019 3:55 PM PSTMilan Acuna MD, Faculty Note: I saw and evaluated the patient and discussed the diagnosis, management, and interpretation of results with the resident. I performed and confirmed the [facility]adley portions of the service. I have reviewed and agree with the documentation in the provider note. Milan Acuna MD lan of Care - Marla Wells RD - 07/08/2019 11:48 AM PST Problem: Nutrition Interventions Intervention: Food and nutrient distribution type or amount Note: Pt reports poor appetite, taste changes and texture issues limiting her intake at home. Hernandez s ongoing weight loss and now with increasing abdominal cramping/diarrhea over last 2 weeks. Admit for work up of GVHD of GI Nutrition Diagnosis: Moderate protein calorie malnutrition in the context of acute illness or injury and inflamm ation related to poor appetite, taste/textures issues as evidenced by: Intake of less than 75% of estimated energy requirements for more than 7 days Weight loss of 5% in 1 month, (actual 5%) Mild depletion of muscle mass: temporalis and clavicle Status: New Goal of Nutrition Care: promote adequate oral intake Rec when feasible begin Stage 1 GVHD diet for 24 hours If stool output <500 ml liquid or <1000 ml of softer loose stool can advance to Stage 2 No nutritional supplements over the week Discussed Stage 1 and 2 briefly with pt today Will reassess Thursday based on diet tolerance this If stool output >1L consider TPN Marla Wells RD, CARDIOTHORACIC SURGEON, LD Pager [phone] 53 year old female with MDS s/p Flu/TBI/Cy followed by double cord (on kyle trial- random ized to SOC) on 04/22/19, now admits with possible GVHD of GI NPO 5'2" 58 kg Est needs: 1720 david (30 david/kg) 87-116 g pro (1.5-2g pro/kg) andoff - Sheila Mehta - 07/08/2019 5:24 AM PSTNurs ing Handoff [place] IP NURSE HANDOFF: [facility] hospital course events: 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 Scheduled Kenalog cream for rash Nausea: Bowel function: Sleep: Psych: Other: As evidenced by: Skin: erythremic maculopapular rash to ears, bilateral shoulders down to mid back S/s of infection: C. Diff Neg, further GI panel ordered Bathing issues: Central line issues: Gabriel (last dressing change 07/07) Other: Recommendations Forward: Orders to follow up on: - Possible GVHD workup, NPO since midnight - CT of abd pending Labs still due: - Stool sample for GI panel needing to be collected - Tac trough due 07/09 0500 Replacements needed: K+, Mag replaced prior to transfer to [facility] Anticipated or pending procedures: Symptom management (next dose of pain/nausea meds, etc): Education needed: Other: documented in this encoun ter Plan of Treatment + + +--------+ + + | Name | Type | Priori | Associated Diagnoses | Order Schedule | | | | ty | | | + + +--------+ + + | RBC MORPHOLOGY | Lab - | Routin | | 07/07/2019 until | | | [facility] | e | | discontinued, 1 | | | Performable | | | completed | | | s | | | | + + +--------+ + + | URINE, MICROSCOPIC | Lab | Urgent | | As Needed for 1 | | EXAM | | | | Occurrences starting | | | | | | 07/07/2019 | + + +--------+ + + | MANUAL DIFFERENTIAL | Lab - | Routin | | 07/08/2019 until | | | [facility] | e | | discontinued, 1 | | | Performable | | | completed | | | s | | | | + + +--------+ + + | RBC MORPHOLOGY | Lab - | Routin | | 07/08/2019 until | | | [facility] | e | | discontinued, 1 | | | Performable | | | completed | | | s | | | | + + +--------+ + + | DIFFERENTIAL, BFL | Lab - | Routin | | 07/11/2019 until | | | [facility] | e | | discontinued | | | Performable | | | | | | s | | | | + + +--------+ + + | DIFFERENTIAL, BFL | Lab - | Routin | | 07/11/2019 until | | | [facility] | e | | discontinued | | | Performable | | | | | | s | | | | + + +--------+ + + | RBC MORPHOLOGY | Lab - | Routin | | 07/12/2019 until | | | [facility] | e | | discontinued, 1 [...] + | TACROLIMUS, WHOLE | Routin | 07/12/2019 | | Results for this | | BLOOD | e | 9:22 AM | | procedure are in the | | | | PST | | results section. | + +--------+ + + + | COMPLETE METABOLIC | Urgent | 07/12/2019 | | Results for this | | SET | | 2:11 AM | | procedure are in the | | (NA,K,CL,CO2,BUN,CRE | | PST | | results section. | | AT,GLUC,CA,AST,ALT,B | | | | | | TI TOTAL,ALK | | | | | | PHOS,ALB,PROT TOTAL) | | | | | + +--------+ + + + | PHOSPHORUS, PLASMA | Routin | 07/12/2019 | | Results for this | | | e | 2:11 AM | | procedure are in the | | | | PST | | results section. | + +--------+ + + + | MAGNESIUM, PLASMA | Urgent | 07/12/2019 | | Results for this | | | | 2:11 AM | | procedure are in the | | | | PST | | results section. | + +--------+ + + + | ANTIBODY SCREEN | Routin | 07/12/2019 | | Results for this | | | e | 1:31 AM | | procedure are in the | | | | PST | | results section. | + +--------+ + + + | TYPE AND SCREEN | Routin | 07/12/2019 | | Results for this | | | e | 1:31 AM | | procedure are in the | | | | PST | | results section. | + +--------+ + + + | ABO & RH TYPE | Routin | 07/12/2019 | | Results for this | | | e | 1:31 AM | | procedure are in the | | | | PST | | results section. | + +--------+ + + + | RBC MORPHOLOGY | Routin | 07/12/2019 | | Results for this | | | e | 1:30 AM | | procedure are in the | | | | PST | | results section. | + +--------+ + + + | CBC AND AUTO DIFF | Urgent | 07/12/2019 | | Results for this | | | | 1:30 AM | | procedure are in the | | | | PST | | results section. | + +--------+ + + + | CBC, WITH | Urgent | 07/12/2019 | | Results for this | | DIFFERENTIAL | | 1:30 AM | | procedure are in the | | | | PST | | results section. | + +--------+ + + + | LAB HOLD - BODY | Routin | 07/11/2019 | | | | FLUID | e | 11:04 AM | | | | | | PST | | | + +--------+ + + + | RESPIRATORY PATHOGEN | Routin | 07/11/2019 | | Results for this | | PANEL PCR | e | 11:02 AM | | procedure are in the | | | | PST | | results section. | + +--------+ + + + | CULTURE, BRONCHIAL | Routin | 07/11/2019 | | Results for this | | LAVAGE | e | 11:02 AM | | procedure are in the | | | | PST | | results section. | + +--------+ + + + | BROAD-RANGE PCR | Routin | 07/11/2019 | | Results for this | | (BACTERIAL, AFB, | e | 11:02 AM | | procedure are in the | | FUNGUS) | | PST | | results section. | + +--------+ + + + | CULTURE, FUNGAL | Routin | 07/11/2019 | | Results for this | | EXCEPT BLOOD, SKIN, | e | 11:02 AM | | procedure are in the | | HAIR, NAIL | | PST | | results section. | + +--------+ + + + | CELL COUNT, BODY FL | Routin | 07/11/2019 | | Results for this | | | e | 11:02 AM | | procedure are in the | | | | PST | | results section. | + +--------+ + + + | HSV QUALITATIVE PCR, | Routin | 07/11/2019 | | Results for this | | SWAB | e | 11:02 AM | | procedure are in the | | | | PST | | results section. | + +--------+ + + + | ASPERGILLUS | Routin | 07/11/2019 | | Results for this | | GALACTOMANNAN | e | 11:02 AM | | procedure are in the | | ANTIGEN, BAL | | PST | | results section. | + +--------+ + + + | LEGIONELLA SPECIES | Routin | 07/11/2019 | | Results for this | | BY QUALITATIVE PCR | e | 11:02 AM | | procedure are in the | | | | PST | | results section. | + +--------+ + + + | CMV QUALITATIVE BY | Routin | 07/11/2019 | | Results for this | | PCR, BAL | e | 11:02 AM | | procedure are in the | | | | PST | | results section. | + +--------+ + + + | NOCARDIA CULTURE, | Routin | 07/11/2019 | | Results for this | | RULE OUT | e | 11:02 AM | | procedure are in the | | | | PST | | results section. | + +--------+ + + + | VARICELLA ZOSTER | Routin | 07/11/2019 | | Results for this | | PCR, CSF OR TISSUE | e | 11:02 AM | | procedure are in the | | | | PST | | results section. | + +--------+ + + + | CELL COUNT DIFF, | Routin | 07/11/2019 | | Results for this | | BODY FLUID | e | 11:02 AM | | procedure are in the | | | | PST | | results section. | + +--------+ + + + | CULTURE, AFB (ALL | Routin | 07/11/2019 | | Results for this | | SPEC TYPES EXCEPT | e | 11:02 AM | | procedure are in the | | BLOOD) | | PST | | results section. | + +--------+ + + + | MYCOBACTERIUM TB BY | Routin | 07/11/2019 | | Results for this | | PCR, MISC SPECMN | e | 11:02 AM | | procedure are in the | | | | PST | | results section. | + +--------+ + + + | BRONCHOSCOPY WITH | Routin | 07/11/2019 | | Results for this | | BRONCHOALVEOLAR | e | 10:56 AM | | procedure are in the | | LAVAGE | | PST | | results section. | + +--------+ + + + | FLEXIBLE | Routin | 07/11/2019 | Lung infiltrate on | Results for this | | BRONCHOSCOPY | e | 8:36 AM | CT | procedure are in the | | | | PST | | results section. | + +--------+ + + + | VERITO-SEVILLA VIRUS | Routin | 07/11/2019 | | Results for this | | PCR, PLASMA | e | 5:33 AM | | procedure are in the | | | | PST | | results section. | + +--------+ + + + | CMV PCR | Routin | 07/11/2019 | | Results for this | | QUANTITATION, PLASMA | e | 5:33 AM | | procedure are in the | | | | PST | | results section. | + +--------+ + + + | HUMAN HERPES VIRUS 6 | Routin | 07/11/2019 | | Results for this | | PCR (PLASMA OR CSF) | e | 5:33 AM | | procedure are in the | | | | PST | | results section. | + +--------+ + + + | LDH TOTAL, PLASMA | Urgent | 07/11/2019 | | Results for this | | | | 5:33 AM | | procedure are in the | | | | PST | | results section. | + +--------+ + + + | CBC AND AUTO DIFF | Urgent | 07/11/2019 | | Results for this | | | | 12:02 AM | | procedure are in the | | | | PST | | results section. | + +--------+ + + + | CBC, WITH | Urgent | 07/11/2019 | | Results for this | | DIFFERENTIAL | | 12:02 AM | | procedure are in the | | | | PST | | results section. | + +--------+ + + + | COMPLETE METABOLIC | Urgent | 07/11/2019 | | Results for this | | SET | | 12:02 AM | | procedure are in the | | (NA,K,CL,CO2,BUN,CRE | | PST | | results section. | | AT,GLUC,CA,AST,ALT,B | | | | | | TI TOTAL,ALK | | | | | | PHOS,ALB,PROT TOTAL) | | | | | + +--------+ + + + | PHOSPHORUS, PLASMA | Routin | 07/11/2019 | | Results for this | | | e | 12:02 AM | | procedure are in the | | | | PST | | results section. | + +--------+ + + + | MAGNESIUM, PLASMA | Urgent | 07/11/2019 | | Results for this | | | | 12:02 AM | | procedure are in the | | | | PST | | results section. | + +--------+ + + + | POSACONAZOLE, QUANT | Routin | 07/10/2019 | | Results for this | | | e | 10:00 AM | | procedure are in the | | | | PST | | results section. | + +--------+ + + + | BASIC METABOLIC SET | Routin | 07/10/2019 | | Results for this | | (NA, K, CL, TCO2, | e | 10:00 AM | | procedure are in the | | BUN, CR, GLU, CA) | | PST | | results section. | + +--------+ + + + | MAGNESIUM, PLASMA | Urgent | 07/10/2019 | | Results for this | | | | 10:00 AM | | procedure are in the | | | | PST | | results section. | + +--------+ + + + | CBC AND AUTO DIFF | Urgent | 07/10/2019 | | Results for this | | | | 12:12 AM | | procedure are in the | | | | PST | | results section. | + +--------+ + + + | CBC, WITH | Urgent | 07/10/2019 | | Results for this | | DIFFERENTIAL | | 12:12 AM | | procedure are in the | | | | PST | | results section. | + +--------+ + + + | COMPLETE METABOLIC | Urgent | 07/10/2019 | | Results for this | | SET | | 12:12 AM | | procedure are in the | | (NA,K,CL,CO2,BUN,CRE | | PST | | results section. | | AT,GLUC,CA,AST,ALT,B | | | | | | TI TOTAL,ALK | | | | | | PHOS,ALB,PROT TOTAL) | | | | | + +--------+ + + + | PHOSPHORUS, PLASMA | Routin | 07/10/2019 | | Results for this | | | e | 12:12 AM | | procedure are in the | | | | PST | | results section. | + +--------+ + + + | MAGNESIUM, PLASMA | Urgent | 07/10/2019 | | Results for this | | | | 12:12 AM | | procedure are in the | | | | PST | | results section. | + +--------+ + + + | HAPTOGLOBIN | Routin | 07/09/2019 | | Results for this | | | e | 1:25 PM | | procedure are in the | | | | PST | | results section. | + +--------+ + + + | TACROLIMUS, WHOLE | Routin | 07/09/2019 | | Results for this | | BLOOD | e | 9:17 AM | | procedure are in the | | | | PST | | results section. | + +--------+ + + + | CBC AND AUTO DIFF | Urgent | 07/09/2019 | | Results for this | | | | 12:07 AM | | procedure are in the | | | | PST | | results section. | + +--------+ + + + | CBC, WITH | Urgent | 07/09/2019 | | Results for this | | DIFFERENTIAL | | 12:07 AM | | procedure are in the | | | | PST | | results section. | + +--------+ + + + | RETICULOCYTE COUNT, | Routin | 07/09/2019 | | Results for this | | BLOOD | e | 12:07 AM | | procedure are in the | | | | PST | | results section. | + +--------+ + + + | CRYPTOCOCCAL | Routin | 07/09/2019 | | Results for this | | ANTIGEN, SERUM | e | 12:00 AM | | procedure are in the | | | | PST | | results section. | + +--------+ + + + | COMPLETE METABOLIC | Urgent | 07/09/2019 | | Results for this | | SET | | 12:00 AM | | procedure are in the | | (NA,K,CL,CO2,BUN,CRE | | PST | | results section. | | AT,GLUC,CA,AST,ALT,B | | | | | | TI TOTAL,ALK | | | | | | PHOS,ALB,PROT TOTAL) | | | | | + +--------+ + + + | PHOSPHORUS, PLASMA | Routin | 07/09/2019 | | Results for this | | | e | 12:00 AM | | procedure are in the | | | | PST | | results section. | + +--------+ + + + | ASPERGILLUS | Routin | 07/09/2019 | | Results for this | | GALACTOMANNAN | e | 12:00 AM | | procedure are in the | | ANTIGEN, SERUM | | PST | | results section. | + +--------+ + + + | MAGNESIUM, PLASMA | Urgent | 07/09/2019 | | Results for this | | | | 12:00 AM | | procedure are in the | | | | PST | | results section. | + +--------+ + + + | GI EXTENDED | Routin | 07/08/2019 | | Results for this | | BACTERIAL PANEL, | e | 9:59 PM | | procedure are in the | | STOOL | | PST | | results section. | + +--------+ + + + | GI VIRUS PANEL, | Routin | 07/08/2019 | | Results for this | | STOOL | e | 9:59 PM | | procedure are in the | | | | PST | | results section. | + +--------+ + + + | SURGICAL PATHOLOGY | Routin | 07/08/2019 | | Results for this | | | e | 5:13 PM | | procedure are in the | | | | PST | | results section. | + +--------+ + + + | FLEXIBLE | Routin | 07/08/2019 | | Results for this | | SIGMOIDOSCOPY | e | 4:47 PM | | procedure are in the | | | | PST | | results section. | + +--------+ + + + | EGD | Routin | 07/08/2019 | | Results for this | | | e | 4:46 PM | | procedure are in the | | | | PST | | results section. | + +--------+ + + + | CT CHEST WO CONTRAST | Routin | 07/08/2019 | | Results for this | | | e | 1:55 PM | | procedure are in the | | | | PST | | results section. | + +--------+ + + + | STREP PNEUMONIAE AG, | Routin | 07/08/2019 | | Results for this | | URINE | e | 12:45 PM | | procedure are in the | | | | PST | | results section. | + +--------+ + + + | LEGIONELLA AG, URINE | Routin | 07/08/2019 | | Results for this | | | e | 12:45 PM | | procedure are in the | | | | PST | | results section. | + +--------+ + + + | C. DIFFICILE TOXIN, | Routin | 07/08/2019 | | Results for this | | W/REFLEX | e | 2:53 AM | | procedure are in the | | CONFIRMATION IF | | PST | | results section. | | INDETERMINATE | | | | | | RESULTS | | | | | + +--------+ + + + | UA, DIPSTICK ONLY | Urgent | 07/08/2019 | | Results for this | | | | 1:50 AM | | procedure are in the | | | | PST | | results section. | + +--------+ + + + | URINE, MICROSCOPIC | Urgent | 07/08/2019 | | Results for this | | EXAM | | 1:50 AM | | procedure are in the | | | | PST | | results section. | + +--------+ + + + | ANTIBODY SCREEN | Urgent | 07/08/2019 | | Results for this | | | | 12:45 AM | | procedure are in the | | | | PST | | results section. | + +--------+ + + + | TYPE AND SCREEN | Urgent | 07/08/2019 | | Results for this | | | | 12:45 AM | | procedure are in the | | | | PST | | results section. | + +--------+ + + + | ABO & RH TYPE | Urgent | 07/08/2019 | | Results for this | | | | 12:45 AM | | procedure are in the | | | | PST | | results section. | + +--------+ + + + | RBC MORPHOLOGY | Routin | 07/08/2019 | | Results for this | | | e | 12:01 AM | | procedure are in the | | | | PST | | results section. | + +--------+ + + + | CBC AND AUTO DIFF | Urgent | 07/08/2019 | | Results for this | | | | 12:01 AM | | procedure are in the | | | | PST | | results section. | + +--------+ + + + | MANUAL DIFFERENTIAL | Routin | 07/08/2019 | | Results for this | | | e | 12:01 AM | | procedure are in the | | | | PST | | results section. | + +--------+ + + + | CBC, WITH | Urgent | 07/08/2019 | | Results for this | | DIFFERENTIAL | | 12:01 AM | | procedure are in the | | | | PST | | results section. | + +--------+ + + + | COMPLETE METABOLIC | Urgent | 07/08/2019 | | Results for this | | SET | | 12:01 AM | | procedure are in the | | (NA,K,CL,CO2,BUN,CRE | | PST | | results section. | | AT,GLUC,CA,AST,ALT,B | | | | | | TI TOTAL,ALK | | | | | | PHOS,ALB,PROT TOTAL) | | | | | + +--------+ + + + | PHOSPHORUS, PLASMA | Routin | 07/08/2019 | | Results for this | | | e | 12:01 AM | | procedure are in the | | | | PST | | results section. | + +--------+ + + + | MAGNESIUM, PLASMA | Urgent | 07/08/2019 | | Results for this | | | | 12:01 AM | | procedure are in the | | | | PST | | results section. | + +--------+ + + + | 12 LEAD ECG | Routin | 07/07/2019 | | Results for this | | | e | 11:33 PM | | procedure are in the | | | | PST | | results section. | + +--------+ + + + | CT ABDOMEN AND | Urgent | 07/07/2019 | | Results for this | | PELVIS W IV CONTRAST | | 9:40 PM | | procedure are in the | | | | PST | | results section. | + +--------+ + + + | LACTATE | Urgent | 07/07/2019 | | Results for this | | | | 5:29 PM | | procedure are in the | | | | PST | | results section. | + +--------+ + + + | RBC MORPHOLOGY | Routin | 07/07/2019 | | Results for this | | | e | 5:25 PM | | procedure are in the | | | | PST | | results section. | + +--------+ + + + | CBC AND AUTO DIFF | Urgent | 07/07/2019 | | Results for this | | | | 5:25 PM | | procedure are in the | | | | PST | | results section. | + +--------+ + + + | CBC, WITH | Urgent | 07/07/2019 | | Results for this | | DIFFERENTIAL | | 5:25 PM | | procedure are in the | | | | PST | | results section. | + +--------+ + + + | COMPLETE METABOLIC | Urgent | 07/07/2019 | | Results for this | | SET | | 5:25 PM | | procedure are in the | | (NA,K,CL,CO2,BUN,CRE | | PST | | results section. | | AT,GLUC,CA,AST,ALT,B | | | | | | TI TOTAL,ALK | | | | | | PHOS,ALB,PROT TOTAL) | | | | | + +--------+ + + + | MAGNESIUM, PLASMA | Urgent | 07/07/2019 | | Results for this | | | | 5:25 PM | | procedure are in the | | | | PST | | results section. | + +--------+ + + + | ED INFORMATION | Routin | 07/07/2019 | | Results for this | | EXCHANGE | e | 4:52 PM | | procedure are in the | | | | PST | | results section. | + +--------+ + + + documented in this encounter Results TACROLIMUS, WHOLE BLOOD (07/12/2019 9:22 AM PST) + +-------+ + + [...] | Test performed by immunoassay using [employer] i2000. . | [facility] | | Samples [...] | + + + + + | [facility] | [address] | [place] [address] | | | SERVICES, SPECIAL | [address] | | | | IMM + COAG | | | | + + + + + PHOSPHORUS, PLASMA (07/12/2019 2:11 AM PST) + +-------+ + + + [...] | + + + + + | [facility] | [address] | [place] [address] | | | SERVICES, CORE | [address] | | | + + + + + MAGNESIUM, PLASMA (07/12/2019 2:11 AM PST) + +-------+ + + + | Component | Value | Ref Range | Performed | Pathologist | | | | | At | Signature | + +-------+ + + + | MAGNESIUM,P | 1.7 | 1.6 - 2.6 mg/dL | [facility] | | | LASMA | | | [...] | + + + + + | [facility] | [address] [facility] [facility] | [place] [address] | | | SERVICES, CORE | [address] | | | + + + + + COMPLETE METABOLIC SET (NA,K,CL,CO2,BUN,CREAT,GLUC,CA,AST,ALT,BILI TOTAL,ALK PHOS,ALB,PROT TOTAL) (07/12/2019 2:11 AM PST) + +---------+ + + + | Component | Value | Ref Range | Performed | Pathologist | | | | | At | Signature | + +---------+ + + + | GLUCOSE, | 156 (H) | 70 - 99 mg/dL | [...] +---------+ + + + | CREATININE | 0.62 | 0.60 - 1.10 | [facility] | | | PLASMA | | mg/dL | LABORATORY | | | (LAB) | | | SERVICES, | | | | | | CORE | | + +---------+ + + + | EGFR | >60 | >60 mL/min | [facility] | | | - | | | LABORATORY | | | B[facility]ZILIAN | | | SERVICES, | | | [...] +---------+ + + + | CHLORIDE, | 110 (H) | 97 - 108 mmol/L | [...] +---------+ + + + | TOTAL | 5.2 (L) | 6.4 - 8.2 g/dL | [facility] | | | PROTEIN, | | | LABORATORY | | | PLASMA | | | SERVICES, | | | (LAB) | | | CORE | | + +---------+ + + + | ALBUMIN, | 2.8 (L) | 3.5 - 4.7 g/dL | [...] +---------+ + + + | AST(SGOT) | 10 | <=41 U/L | [facility] | | | | | | LABORATORY | | | | | | SERVICES, | | | | | | CORE | | + +---------+ + + + | ALT (SGPT) | 10 | <=60 U/L | [facility] | | [...] +---------+ + + + | GLOBULIN | 2.4 | 2.3 - 3.5 gm/dL | [facility] [...] MDRD equation recommended by the National | [facility] | | Kidney Disease [...] not valid in the following situations: | | | - Patients under 18 years [...] [facility] | [address] | [place] [address] | | | SERVICES, CORE | [address] | | | + + + + + ANTIBODY SCREEN (07/12/2019 1:31 AM PST) + + + + + [...] | + + + + + | [facility] | [address] | [place] [address] | | | SERVICES, | [address] | | | | TRANSFUSION MEDICINE | | | | + + + + + ABO & RH TYPE (07/12/2019 1:31 AM PST) + + + + + [...] [facility] | [address] | [place] [address] | | | SERVICES, | [address] | | | | TRANSFUSION MEDICINE | | | | + + + + + RBC MORPHOLOGY (07/12/2019 1:30 AM PST) + + + + + [...] [facility] | [address] | [place] [address] | | | SERVICES, CORE | [address] | | | + + + + + CBC AND AUTO DIFF (07/12/2019 1:30 AM PST) + + + + + + | Component | Value | Ref Range | Performed | Pathologist | | | | | At | Signature | + + + + + + | WHITE CELL | 3.78 | 3.50 - 10.80 | [facility] | | | COUNT | | K/cu mm | LABORATORY | | | | | | SERVICES, | | | | | | CORE | | + + + + + + | RED CELL | 2.64 (L) | 4.00 - 5.20 | [facility] | | | COUNT | | M/cu mm | LABORATORY | | | | | | SERVICES, | | | | | | CORE | | + + + + + + | HEMOGLOBIN | 7.2 (L) | 12.0 - 16.0 | [facility] | | | | | g/dL | LABORATORY | | | | | | SERVICES, | | | | | | CORE | | + + + + + + | HEMATOCRIT | 25.0 (L) | 36.0 - 46.0 % | [facility] | | | | | | LABORATORY | | | | | | SERVICES, | | | | | | CORE | | + + + + + + | MCV | 94.7 | 80.0 - 100.0 fL | [facility] | | | | | | LABORATORY | | | | | | SERVICES, | | | | | | CORE | | + + + + + + | MCHC | 28.8 (L) | 32.0 - 36.0 | [facility] | | | | | g/dL | LABORATORY | | | | | | SERVICES, | | | | | | CORE | | + + + + + + | RDW SD | 59.1 (H) | 35.1 - 46.3 fL | [facility] | | | | | | LABORATORY | | | | | | SERVICES, | | | | | | CORE | | + + + + + + | PLATELET | 191Comment: Few platelet | 150 - 400 K/cu | [facility] | | | COUNT | clumps present. | mm | LABORATORY | [...] + + + + | NEUTROPHIL | 72.2 (H) | 50.0 - 70.0 % | [...] + + + | MONOCYTE % | 6.9 | 3.5 - 9.0 % | [facility] [...] + + + + | NEUTROPHIL | 2.73 | 1.80 - 7.70 | [facility] | [...] + + + | MONOCYTE # | 0.26 | 0.10 - 0.90 | [facility] | [...] | + + + + + | [facility] | [address] | [place] [address] | | | SERVICES, CORE | [address] | | | + + + + + LAB HOLD - BODY FLUID (07/11/2019 11:04 AM PST) + + | Specimen | + + | Bronchoalveolar | | lavage fluid | + + + + + + + | Performing | Address | City/State/Zipcode | Phone Number | | Organization | | | | + + + + + | [facility] | [address] | [place] [address] | | | SERVICES, [place] | [address] | | | + + + + + CULTURE, FUNGAL EXCEPT BLOOD, SKIN, HAIR, NAIL (07/11/2019 11:02 AM PST) + + | Specimen | + + | Bronchoalveolar | | lavage fluid - Lung | | structure (body | | structure) | + + + + + | Narrative | Performed At | + + + | Culture Report: No fungus isolated at 3 weeks. | [facility] - | | | [place] [facility] | | | [place] | + + + + + + + + | Performing | Address | City/State/Zipcode | Phone Number | | Organization | | | | + + + + + | [facility] - | [address] | [place] [address] | | | [place] | | | | + + + + + RESPIRATORY PATHOGEN PANEL PCR (07/11/2019 11:02 AM PST) + + + + + + | Component | Value | Ref Range | Performed | Pathologist | | | | | At | Signature | + + + + + + | ADENOVIRUS | Not Detected | Not Detected | [facility] | | | PCR | | | LABORATORY | | | | | | SERVICES, | | | | | | CORE | | + + + + + + | CORONAVIRUS | Not Detected | Not Detected | [facility] | | | 229E PCR | | | LABORATORY | | | | | | SERVICES, | | | | | | CORE | | + + + + + + | CORONAVIRUS | Not Detected | Not Detected | [facility] | | | HKU1 PCR | | | LABORATORY | | | | | | SERVICES, | | | | | | CORE | | + + + + + + | CORONAVIRUS | Not Detected | Not Detected | [facility] | | | [id number] PCR | | | LABORATORY | | | | | | SERVICES, | | | | | | CORE | | + + + + + + | CORONAVIRUS | Not Detected | Not Detected | [facility] | | | OC43 PCR | | | LABORATORY | | | | | | SERVICES, | | | | | | CORE | | + + + + + + | METAPNEUMOV | Not Detected | Not Detected | [facility] | | | IRUS PCR | | | LABORATORY | | | | | | SERVICES, | | | | | | CORE | | + + + + + + | RHINOVIRUS/ | Not Detected | Not Detected | [facility] | | | ENTEROVIRUS | | | LABORATORY | | | PCR | | | SERVICES, | | | | | | CORE | | + + + + + + | INFLUENZA A | Not Detected | Not Detected | [facility] | | | PCR | | | LABORATORY | | | | | | SERVICES, | | | | | | CORE | | + + + + + + | INFLUENZA A | Not Detected | Not Detected | [facility] | | | SUBTYPE H1 | | | LABORATORY | | | PCR | | | SERVICES, | | | | | | CORE | | + + + + + + | INFLUENZA A | Not Detected | Not Detected | [facility] | | | H1-2009 | | | LABORATORY | | | PCR | | | SERVICES, | | | | | | CORE | | + + + + + + | INFLUENZA A | Not Detected | Not Detected | [facility] | | | H3 PCR | | | LABORATORY | | | | | | SERVICES, | | | | | | CORE | | + + + + + + | INFLUENZA B | Not Detected | Not Detected | [facility] | | | PCR | | | LABORATORY | | | | | | SERVICES, | | | | | | CORE | | + + + + + + | PARAINFLUEN | Not Detected | Not Detected | [facility] | | | ZA 1 PCR | | | LABORATORY | | | | | | SERVICES, | | | | | | CORE | | + + + + + + | PARAINFLUEN | Not Detected | Not Detected | [facility] | | | ZA 2 PCR | | | LABORATORY | | | | | | SERVICES, | | | | | | CORE | | + + + + + + | PARAINFLUEN | Not Detected | Not Detected | [facility] | | | ZA 3 PCR | | | LABORATORY | | | | | | SERVICES, | | | | | | CORE | | + + + + + + | PARAINFLUEN | Not Detected | Not Detected | [facility] | | | ZA 4 PCR | | | LABORATORY | | | | | | SERVICES, | | | | | | CORE | | + + + + + + | RSV PCR | Not Detected | Not Detected | [facility] | | | | | | LABORATORY | | | | | | SERVICES, | | | | | | CORE | | + + + + + + | BORDETELLA | Not Detected | Not Detected | [facility] | | | PERTUSSIS | | | LABORATORY | | | PCR | | | SERVICES, | | | | | | CORE | | + + + + + + | CHLAMYDOPHI | Not Detected | Not Detected | [facility] | | | LA | | | LABORATORY | | | PNEUMONIAE | | | SERVICES, | | | PCR | | | CORE | | + + + + + + | MYCOPLASMA | Not Detected | Not Detected | [facility] | | | PNEUMONIAE | | | LABORATORY | | | PCR | | | SERVICES, | | | | | | CORE | | + + + + + + + + | Specimen | + + | Bronchoalveolar | | lavage fluid - | | Bronchoalveolar | | Lavage | + + + + + + + | Performing | Address | City/State/Zipcode | Phone Number | | Organization | | | | + + + + + | [facility] | [address] | [place] [address] | | | SERVICES, [place] | [address] | | | + + + + + CMV QUALITATIVE BY HILDA KRAMER (07/11/2019 11:02 AM PST) + + + + + + | Component | Value | Ref Range | Performed | Pathologist | | | | | At | Signature | + + + + + + | CMV | Undetected | Undetected | [facility] | | | QUALITATIVE | | IU/mL | DIAGNOSTIC | | | BY PCR, | | | | | | BAL | | | LABORATORIE | | | | | | S | | + + + + + + + + | Specimen | + + | Bronchoalveolar | | lavage fluid - Lung | | structure (body | | structure) | + + + + + | Narrative | Performed At | + + + | The assay's lower sensitivity limit is 200 IU/mL. Positive CMV | [facility] | | results may indicate active or impending CMV disease or poor antiviral | DIAGNOSTIC | | therapy response. Undetected results suggest either an absence of | LABORATORIES | | CMV viremia or the presence of low-level viremia below 200 IU/mL. | | | This test was developed and its performance characteristics determined | | | by the [facility] | | | Center. It has not been cleared or approved by the Food and Drug | | | Administration. FDA approval is not required for clinical use of this | | | test, and therefore validation was done as required under the | | | requirements of the Clinical Laboratory Improvement Act of 1988. The | | | [facility] is a | | | fully licensed and/or accredited clinical laboratory under CLIA, CAP, | | | and the [facility]. | | + + + + + + + + | Performing | Address | City/State/Zipcode | Phone Number | | Organization | | | | + + + + + | [facility] | [address] | [place] [address] | | | DIAGNOSTIC | [address] | | | | LABORATORIES | | | | + + + + + NOCARDIA CULTURE, RULE OUT (07/11/2019 11:02 AM PST) + + | Specimen | + + | Bronchoalveolar | | lavage fluid - Lung | | structure (body | | structure) | + + + + + | Narrative | Performed At | + + + | Culture Report: Nocardia not isolated | [facility] - | | | [facility] - | | | [place] | + + + + + + + + | Performing | Address | City/State/Zipcode | Phone Number | | Organization | | | | + + + + + | [facility] - | [address] | [place] [address] | | | [place] | | | | + + + + + CELL COUNT, BODY FL (07/11/2019 11:02 AM PST) + +-------+ + + + | Component | Value | Ref Range | Performed | Pathologist | | | | | At | Signature | + +-------+ + + + | RBC, BODY | 1 | cu mm | [facility] | | | FLUID | | | LABORATORY | | | | | | SERVICES, | | | | | | CORE | | + +-------+ + + + | WBC, BODY | 120 | 0 - 999 cu mm | [facility] | | | FLUID | | | LABORATORY | | | | | | SERVICES, | | | | | | CORE | | + +-------+ + + + + + | Specimen | + + | Fluid - Lung | | structure (body | | structure) | + + + + + + + | Performing | Address | City/State/Zipcode | Phone Number | | Organization | | | | + + + + + | [facility] | [address] | [place] [address] | | | SERVICES, CORE | [address] | | | + + + + + VARICELLA ZOSTER BY PCR (07/11/2019 11:02 AM PST) + + + + + + | Component | Value | Ref Range | Performed | Pathologist | | | | | At | Signature | + + + + + + | SOURCE, INF | BAL | | [facility] | | | SER/PCR | | | REG UNIV | | | | | | PTH - INTFC | | + + + + + + | VARICELLA-Z | Not DetectedComment: NOT | | [facility] | | | ANDRADE BY | DETECTED - A negative | | REG UNIV | | | PCR | result does not rule out | | PTH - INTFC | | | | thepresence of PCR | | | | | | inhibitors in the | | | | | | patient specimen or | | | | | | assayspecific nucleic | | | | | | acid in concentrations | | | | | | below the level | | | | | | ofdetection by the | | | | | | assay. The specimen | | | | | | submitted for testing | | | | | | did not meet | | | | | | [facility]mission | | | | | | guidelines. Testing was | | | | | | performed on a | | | | | | specimenthat did not | | | | | | meet validated type | | | | | | requirements.Performance | | | | | | characteristics of this | | | | | | assay may be | | | | | | affected.Interpret | | | | | | results with caution. | | | | | | Please refer to the | | | | | | [facility] | | | | | | Directory for | | | | | | information on | | | | | | specimenacceptability:ht | | | | | | [email or web address] | | | | | | [email or web address] | | | | | | .INTERPRETIVE | | | | | | INFORMATION: | | | | | | Varicella-Zoster Virus | | | | | | by PCR Test developed | | | | | | and characteristics | | | | | | determined by [facility] | | | | | | Laboratories. See | | | | | | Compliance Statement B: | | | | | | [employer].TwentyFeet/CSPerformed | | | | | | by [facility],[address] | | | | [address] [facility] [place] | | | | | | [address] | | | | | | [phone].[employer]. | | | | | | Zefernio montelongo MD, | | | | | | Lab. Director | | | | + + + + + + + + | Specimen | + + | Bronchoalveolar | | lavage fluid | + + + + + | Narrative | Performed At | + + + | Test results should be interpreted with caution. Assay was | [facility] | | performed at client's request on a sub-optimal specimen. | REG UNIV PTH - | | | INTFC | + + + + + + + + | Performing | Address | City/State/Zipcode | Phone Number | | Organization | | | | + + + + + | [facility] | [address] | [place], [place] | | | UNIV PTH - INTFC | | [address] | | + + + + + HSV QUALITATIVE PCR, SWAB (07/11/2019 11:02 AM PST) + + + + + + | Component | Value | Ref Range | Performed | Pathologist | | | | | At | Signature | + + + + + + | HSV-1 | Undetected | Undetected | [facility] | | | QUALITATIVE | | | DIAGNOSTIC | | | PCR, SWAB | | | | | | | | | LABORATORIE | | | | | | S | | + + + + + + | HSV-2 | Undetected | Undetected | [facility] | | | QUALITATIVE | | | DIAGNOSTIC | | | PCR, SWAB | | | | | | | | | LABORATORIE | | | | | | S | | + + + + + + + + | Specimen | + + | Swab - Lung | | structure (body | | structure) | + + + + + | Narrative | Performed At | + + + | The Herpes Simplex 1 & 2 PCR test uses multiplex RT-PCR to directly | [facility] | | detect the presence of the viral DNA from HSV-1 and/or HSV-2. The | DIAGNOSTIC | | assay amplifies the glycoprotein B gene of both viruses by real-time | LABORATORIES | | PCR with a fluorescently labeled oligonucleotide primer set, and | | | distinguishes the two HSV viruses by post-PCR melting curve analysis. | | | A result of "undetected" does not rule out the presence of a virus | | | other than HSV - or HSV present at or below the assay's detection | | | limit. The limit of detection for this assay is 2 molecules of viral | | | DNA per PCR reaction for HSV-1 and for HSV-2. This assay directly | | | detects the presence of viral DNA, which may persist independent of | | | virus viability. A "positive" result does not necessarily indicate | | | active infection. This test was developed and its | | | performance characteristics determined by the [facility] | | | [facility]. It has not been cleared or | | | approved by the Food and Drug Administration. FDA approval is not | | | required for clinical use of this test, and therefore validation was | | | done as required under the requirements of the Clinical Laboratory | | | Improvement Act of 1988. The [facility] | | | [facility] Center is a fully licensed and/or accredited | | | clinical laboratory under CLIA, CAP, and the [facility]. The | | | Herpes Simplex 1 & 2 PCR test uses multiplex RT-PCR to directly detect | | | the presence of the viral DNA from HSV-1 and/or HSV-2. The assay | | | amplifies the glycoprotein B gene of both viruses by real-time PCR | | | with a fluorescently labeled oligonucleotide primer set, and | | | distinguishes the two HSV viruses by post-PCR melting curve analysis. | | | A result of "undetected" does not rule out the presence of a virus | | | other than HSV - or HSV present at or below the assay's detection | | | limit. The limit of detection for this assay is 2 molecules of viral | | | DNA per PCR reaction for HSV-1 and for HSV-2. This assay directly | | | detects the presence of viral DNA, which may persist independent of | | | virus viability. A "positive" result does not necessarily indicate | | | active infection. This test was developed and its | | | performance characteristics determined by the [facility] | | | [facility] [place]. It has not been cleared or | | | approved by the Food and Drug Administration. FDA approval is not | | | required for clinical use of this test, and therefore validation was | | | done as required under the requirements of the Clinical Laboratory | | | Improvement Act of 1988. The [facility] | | | [facility] [place] is a fully licensed and/or accredited | | | clinical laboratory under CLIA, [facility], and the [facility]. | | + + + + + + + + | Performing | Address | City/State/Zipcode | Phone Number | | Organization | | | | + + + + + | [facility] | [address] | [place] [address] | | | DIAGNOSTIC | [address] | | | | LABORATORIES | | | | + + + + + CULTURE, AFB (ALL SPEC TYPES EXCEPT BLOOD) (07/11/2019 11:02 AM PST) + + | Specimen | + + | Sputum - | | Bronchoalveolar | | lavage - right | + + + + + | Narrative | Performed At | + + + | Culture Report: No acid fast bacteria isolated at 6 weeks. AFB | [facility] | | Smear: AFB not detected | [facility] - | | | [place] | + + + + + + + + | Performing | Address | City/State/Zipcode | Phone Number | | Organization | | | | + + + + + | [facility] - | [address] | [place] [address] | | | [place] | | | | + + + + + MYCOBACTERIUM TB BY PCR, MISC SPECMN (07/11/2019 11:02 AM PST) + + + + + + | Component | Value | Ref Range | Performed | Pathologist | | | | | At | Signature | + + + + + + | MYCOBACTERI | Negative | Negative | [facility] | | | UM TB BY | | | REFERENCE | | | PCR | | | LAB | | + + + + + + | SOURCE, INF | Bronch Wash | | [facility] | | | SER/PCR | | | REFERENCE | | | | | | LAB | | + + + + + + + + | Specimen | + + | Bronchoalveolar | | lavage fluid - Lung | | structure (body | | structure) | + + + + + | Narrative | Performed At | + + + | This test is | [facility] | | FDA approved for use only with AFB smear positive sputum, | REFERENCE LAB | | bronchial specimens and tracheal aspirates. Testing | | | performance characteristics were determined by [facility] Infectious Diseases | | | and Molecular Diagnostics Laboratory. | | | Test performed by:[facility] | | | [id number] [facility] [address] [address] | | | | | |[address] [facility] [address] | | |[place] [address] | | | | | + + + + + + + + | Performing | Address | City/State/Zipcode | Phone Number | | Organization | | | | + + + + + | [facility] | | | | + + + + + | [facility] | see below | | | + + + + + BROAD-RANGE PCR (BACTERIAL, AFB, FUNGUS) (07/11/2019 11:02 AM PST) + + + + + + | Component | Value | Ref Range | Performed | Pathologist | | | | | At | Signature | + + + + + + | BROAD RANGE | See scanned report | | [facility] | | | PCR | | | REFERENCE | | | | | | LAB | | + + + + + + + + | Specimen | + + | Bronchoalveolar | | lavage fluid - Lung | | structure (body | | structure) | + + + + + | Narrative | Performed At | + + + | Test performed | [facility] | | by : [facility], [place] | REFERENCE LAB | | [address] | | |[place] [address] | | + + + + + + + + | Performing | Address | City/State/Zipcode | Phone Number | | Organization | | | | + + + + + | [facility] | | | | + + + + + | [facility] | see below | | | + + + + + LEGIONELLA SPECIES BY QUALITATIVE PCR (07/11/2019 11:02 AM PST) + + + + + + | Component | Value | Ref Range | Performed | Pathologist | | | | | At | Signature | + + + + + + | LEGIONELLA | Not Detected | | [facility] | | | PNEUMOPHILA | | | REG UNIV | | | BY PCR | | | PTH - INTFC | | + + + + + + | LEGIONELLA | Not DetectedComment: | | [facility] | | | SPECIES BY | INTERPRETIVE | | REG UNIV | | | QUALITATIVE | INFORMATION: Legionella | | PTH - INTFC | | | PCR | species by Qualitative | | | | | | PCR A negative result | | | | | | does not rule out the | | | | | | presence of PCR | | | | | | inhibitors in the | | | | | | patient specimen or | | | | | | test-specific nucleic | | | | | | acid in concentrations | | | | | | below the level of | | | | | | detection by this test. | | | | | | Test developed and | | | | | | characteristics | | | | | | determined by [facility] | | | | | | Laboratories. See | | | | | | Compliance Statement B: | | | | | | [employer]/CSPerformed | | | | | | by [facility],[address] | | | | | [address] [facility] [place] | | | | | | [address] | | | | | | [phone].[employer]. | | | | | | Zeferino montelongo MD, | | | | | | Lab. Director | | | | + + + + + + | SOURCE, INF | BAL | | [facility] | | | SER/PCR | | | REG UNIV | | | | | | PTH - INTFC | | + + + + + + + + | Specimen | + + | Bronchoalveolar | | lavage fluid - Lung | | structure (body | | structure) | + + + + + + + | Performing | Address | City/State/Zipcode | Phone Number | | Organization | | | | + + + + + | [facility] | [address] | [place], [place] | | | UNIV PTH - INTFC | | [address] | | + + + + + ASPERGILLUS GALACTOMANNAN ANTIGEN, BAL (07/11/2019 11:02 AM PST) + + + + + + | Component | Value | Ref Range | Performed | Pathologist | | | | | At | Signature | + + + + + + | ASP GAL | 0.05 | | [facility] | | | INDEX | | | REG UNIV | | | | | | PTH - INTFC | | + + + + + + | ASPERGILLUS | NegativeComment: | Negative | [facility] | | | | INTERPRETIVE | | REG UNIV | | | GALACTOMANN | INFORMATION: Aspergillus | | PTH - INTFC | | | AN ANTIGEN, | Galactomannan EIA, | | | | | BAL | Broncho A BAL | | | | | | galactomannan index of | | | | | | greater than or equal to | | | | | | 0.5is considered | | | | | | positive. This result | | | | | | should be interpreted in | | | | | | the context of patient | | | | | | history, clinical | | | | | | signs/symptoms, and | | | | | | other routine diagnostic | | | | | | tests (e.g., culture, | | | | | | histologic examination | | | | | | of biopsy material, and | | | | | | radiographic | | | | | | imaging).Performed by | | | | | | [facility],[address] | | | | | [address], [facility] [place] | | | | | | [address] | | | | | | [phone].[employer]. | | | | | | cedar city hospitalZeferino MD, | | | | | | Lab. Director | | | | + + + + + + + + | Specimen | + + | Bronchoalveolar | | lavage fluid - Lung | | structure (body | | structure) | + + + + + + + | Performing | Address | City/State/Zipcode | Phone Number | | Organization | | | | + + + + + | [facility] | [address] | [place], [place] | | | UNIV PTH - INTFC | | [address] | | + + + + + CULTURE, BRONCHIAL LAVAGE (07/11/2019 11:02 AM PST) + + | Specimen | + + | Bronchoalveolar | | lavage fluid - Lung | | structure (body | | structure) | + + + + + | Narrative | Performed At | + + + | Culture Report: Rare Oral Brianda Gram Stain: Rare | [facility] - | | polymorphonuclear cells No squamous epithelial cells No organisms | [facility] - | | seen | [place] | + + + + + + + + | Performing | Address | City/State/Zipcode | Phone Number | | Organization | | | | + + + + + | [facility] - | [address] | [place] [address] | | | [place] | | | | + + + + + BRONCHOSCOPY WITH BRONCHOALVEOLAR LAVAGE (07/11/2019 10:56 AM PST) + + + | Narrative | Performed At | + + + | Chuy Mera MD 07/12/2019 12:22 PM Brief Bronchoscopy Note | | | Patient information: Analy Campuzano Katelyncrescencioliana Attending: David Mera, | | | Fellow: Erik Bergeron MD Brief post-procedure note, | | | formal note in ProVation to follow. Final report will be under | | | Procedure Tab in [facility]. Medications: Midazolam 4.5mg Fentanyl | | | 125mcg Procedure performed: 81654 Bronchoscopy w/ BAL Estimated | | | blood loss: None. Complications: None; patient tolerated the | | | procedure well. Procedural Findings: The airway was entered via | | | the oropharynx. The vocal cords had normal movement bilaterally | | | without swelling or edema. The crispin was sharp and the bronchial | | | mucosa appeared normal without erythema. The endobronchial anatomy | | | was inspected down to the level of the sub-segmental bronchus | | | without evidence of purulence, mass or other lesion. The lateral | | | segment of the RLL was entered for the bronchoalveolar lavage. On | | | our first attempt, we instilled 80mL of sterile saline with | | | negligible return. We then entered a different sub-segment of the | | | lateral segment of the RLL, where we instilled an additional 120mL | | | of sterile saline, this time with a 35mL return of clear, mildly | | | turbid fluid. This sample will be sent for microbiological testing. | | | Ms. Camarillo tolerated the procedure well and without immediate | | | complication. Plan: Ms. Camarillo will be monitored briefly in the | | | bronchoscopy suite prior to being transported to [facility]. After | | | observation, if stable, two hours after the last administration of | | | lidocaine she will be able to resume prior diet if applicable. The | | | patient or care team should call the on-call pulmonary physician | | | should there be any problems felt to be related to the procedure. It | | | would not be unusual to have a fever in the next 24 hours. | | | Acetaminophen would be appropriate to treat the fever if not | | | contraindicated. If biopsies were perform a small amount of | | | hemoptysis is expected and should decrease steadily over the next 24 | | | to 48 hours. Our service will follow up on the results of the | | | procedure and make appropriate arrangements. Erik | | | MD Elyssa Pulmonary/Critical Care Medicine Fellow Pager [phone] | | | Late entry for 11 July: During the critical | | | portion of the procedure, I was present. Devi Mera | | + + + FLEXIBLE BRONCHOSCOPY (07/11/2019 8:36 AM PST) + + | Specimen | + + | | + + + + + | Narrative | Performed At | + + + | MRN: | [facility] | | [id number] Date: 07/11/2019Patient Name: Analy CamarilloTraci #: | BRONCHOSCOPY | | [id number] of : 1965CSN: [id number] Type: | LAB | | InpatientRoom: Bronchscopy LabProcedure: | | | BronchoscopyIndications: Right lower lobe | | | consolidation in an immunocompromised | | | patientProviders: CHUY MERA MD, ERIK Meléndez | | | MD ELYSSA (Fellow), OLYA Evans | | | MD RADHA, JAQUELIN TOMAS, RCPReferring MD: CHUY MERA, | | | MDRequesting Physician: Medicines: Lidocaine 4% | | | Nebulizer 20 mL, Lidocaine 2% applied to | | | cords 4 mL, Lidocaine 2% applied to the | | | tracheobronchial tree 6 mL, Midazolam 4.5 mg IV, | | | Fentanyl 125 mcg IVComplications: | | | Ruchi tolerated the procedure well and without | | | immediate complication.Procedure: | | | Pre-Anesthesia Assessment: - A | | | History and Physical has been performed. The | | | patient's medications, allergies and sensitivities have | | | been reviewed. | | | - The risks and benefits of the procedure and the | | | sedation options and risks were discussed with the | | | patient. All questions were answered | | | and informed consent was obtained. | | | - Pre-procedure physical examination | | | revealed no contraindications to | | | sedation. - ASA Grade Assessment: III | | | - A patient with severe systemic | | | disease. - Airway Examination: normal | | | oropharyngeal airway and Mallampati | | | Class III (part of the uvula and soft palate | | | visualized). - Respiratory | | | Examination: clear to auscultation. - | | | Patient identification and proposed procedure were | | | verified prior to the procedure by the physician. The | | | procedure was verified in the | | | procedure room. - The anesthesia plan | | | was to use moderate | | | sedation/analgesia. - Immediately | | | prior to administration of medications, | | | the patient was re-assessed for adequacy to receive | | | sedatives. After I | | | obtained informed consent, the scope was passed | | | under direct vision. Throughout the procedure, the | | | patient's blood pressure, pulse, and oxygen | | | saturations were monitored | | | continuously. The Olympus BFQ-190 | | | bronchoscope S/N [id number] was introduced through the | | | mouth and advanced to the tracheobronchial | | | tree.Findings: The larynx was without swelling or edema, and the | | | vocal cords had normal movement bilaterally. The crispin was | | | sharp and the bronchial mucosa appeared normal without | | | erythema. The endobronchial anatomy was inspected down to the | | | level of the sub-segmental bronchi without evidence of | | | purulence, mass or other lesion. The lateral segment of the RLL | | | was entered for the bronchoalveolar lavage. On our first attempt, we | | | instilled 80mL of sterile saline with negligible return. We | | | then entered a different sub-segment of the lateral segment of | | | the RLL, where we instilled an additional 120mL of sterile | | | saline, this time with a 35mL return of clear, mildly turbid | | | fluid. This sample will be sent for microbiological | | | testing.Attending Participation: I was present and participated | | | during the entire procedure, including non-bradley portions.Chuy | | | MD Adam, PhDSTOLEG MERA MD07/19/2019 1:40:07 PMNumber of Addenda: | | | 0Note Initiated On: 07/11/2019 8:36 AMEstimated Blood Loss: | | | Estimated blood loss: none. | | |Chuy Mear MD, PhD | | |CHUY MERA MD | | |07/19/2019 1:40:07 PM | | |Number of Addenda: 0 | | |Note Initiated On: 07/11/2019 8:36 AM | | |Estimated Blood Loss: | | | Estimated blood loss: none. | | + + + + +---------+ + + | Performing | Address | City/State/Zipcode | Phone Number | | Organization | | | | + +---------+ + + | [facility] | | | | | LAB | | | | + +---------+ + + HUMAN HERPES VIRUS 6 PCR (PLASMA OR CSF) (07/11/2019 5:33 AM PST) + + + + + [...] information: | | | | | | [email or web address] | | | | | esting. [...] REG UNIV | | | QUANT | [facility] | | PTH - INT[facility] | | | | [place] [address] | | | | | | [phone].[employer]. | | | | | | [...] A: | | | | | | [employer]/CS | | | | + + + [...] [facility] | [address] | [place], [place] | | | UNIV PTH - INTFC | | [address] | | + + + + + VERITO-SEVILLA VIRUS PCR, PLASMA (07/11/2019 5:33 AM PST) + + + + + + | Component | Value | Ref Range | Performed | Pathologist | | | | | At | Signature | + + + + + + | EBV QUANT | Undetected | Undetected, | [facility] | | | BY PCR, | | [...] | | performance characteristics determined by the [facility] Molecular | | | [...] Act of 1988. | | | The [facility] is a fully licensed and/or accredited clinical laboratory | | | under CLIA, CAP, and the [facility]. References: 1) | | | Phong [...] | | real-time polymerase chain reaction. Transfusion 2008;48:[id number]. | | | 4) Bassam SULEIMAN, Genny SCOTTM, Félix I, van keshia Kristen W, et al. | | | Frequent monitoring of Verito-Sevilla virus DNA load in unfractionated | | | whole blood is essential for early detection of posttransplant | | | lymphoproliferative disease in high-risk patients. Blood | | | 2001;97(5):8967-5017. | | + + + + + + + + | Performing | Address | City/State/Zipcode | Phone Number | | Organization | | | | + + + + + | [facility] | [address] | [place] [address] | | | DIAGNOSTIC | [address] | | | | LABORATORIES | | | | + + + + + CMV PCR QUANTITATION, PLASMA (07/11/2019 5:33 AM PST) + + + + + [...] 2 fold may not reflect true | [facility] | | biological changes and must [...] | | | characteristics determined by the [facility] | | | Molecular Diagnostic Center. It has not been cleared or approved by | | | the Food and Drug Administration. FDA approval is not required for | | | clinical use of this test, and therefore validation was done as | | | required under the requirements of the Clinical Laboratory Improvement | | | Act of 1988. The [facility] Molecular | | | Diagnostic Center is a fully licensed and/or accredited clinical | | | laboratory under CLIA, CAP, and the [facility]. | | + + + + + + + + | Performing | Address | City/State/Zipcode | Phone Number | | Organization | | | | + + + + + | [facility] | [address] | [place] [address] | | | DIAGNOSTIC | [address] | | | | LABORATORIES | | | | + + + + + LDH TOTAL, PLASMA (07/11/2019 5:33 AM PST) + +---------+ + + + | Component | Value | Ref Range | Performed | Pathologist | | | | | At | Signature | + +---------+ + + + | LD TOTAL, | 156 | <=250 U/L | [facility] | | [...] [facility] | [address] | [place] [address] | | | SERVICES, CORE | [address] | | | + + + + + CBC AND AUTO DIFF (07/11/2019 12:02 AM PST) + + + + + + | Component | Value | Ref Range | Performed | Pathologist | | | | | At | Signature | + + + + + + | WHITE CELL | 4.47 | 3.50 - 10.80 | [facility] | | | COUNT | | K/cu mm | LABORATORY | | | | | | SERVICES, | | | | | | CORE | | + + + + + + | RED CELL | 2.72 (L) | 4.00 - 5.20 | [facility] [...] + + + + | MCV | 92.3 | 80.0 - 100.0 fL | [facility] [...] + + + | RDW SD | 57.1 (H) | 35.1 - 46.3 fL | [facility] | | | | | | LABORATORY | | | | | | SERVICES, | | | | | | CORE | | + + + + + + | PLATELET | 190Comment: Few platelet | 150 - 400 K/cu | [facility] | | | COUNT | clumps present. | mm | LABORATORY | [...] + + + + | NEUTROPHIL | 75.4 (H) | 50.0 - 70.0 % | [facility] | | | % | | | LABORATORY | | | | | | SERVICES, | | | | | | CORE | | + + + + + + | LYMPHOCYTE | 15.9 (L) | 18.0 - 42.0 % | [facility] | | | % | | | LABORATORY | | | | | | SERVICES, | | | | | | CORE | | + + + + + + | MONOCYTE % | 6.9 | 3.5 - 9.0 % | [facility] [...] + + + + | NEUTROPHIL | 3.37 | 1.80 - 7.70 | [facility] | | | # | | K/cu mm | LABORATORY | | | | | | SERVICES, | | | | | | CORE | | + + + + + + | LYMPHOCYTE | 0.71 (L) | 1.00 - 4.80 | [facility] | | | # | | K/cu mm | LABORATORY | | | | | | SERVICES, | | | | | | CORE | | + + + + + + | MONOCYTE # | 0.31 | 0.10 - 0.90 | [facility] | [...] | + + + + + | [facility] | [address] | [place] [address] | | | SERVICES, CORE | [address] | | | + + + + + PHOSPHORUS, PLASMA (07/11/2019 12:02 AM PST) + +-------+ + + + | Component | Value | Ref Range | Performed | Pathologist | | | | | At | Signature | + +-------+ + + + | PHOSPHORUS, | 2.7 | 2.4 - 4.7 mg/dL | [facility] [...] | + + + + + | [facility] | [address] | [place] [address] | | | SERVICES, CORE | [address] | | | + + + + + MAGNESIUM, PLASMA (07/11/2019 12:02 AM PST) + +-------+ + + + | Component | Value | Ref Range | Performed | Pathologist | | | | | At | Signature | + +-------+ + + + | MAGNESIUM,P | 2.3 | 1.6 - 2.6 mg/dL | [facility] [...] | + + + + + | [facility] | [address] | [place] [address] | | | SERVICES, CORE | [address] | | | + + + + + COMPLETE METABOLIC SET (NA,K,CL,CO2,BUN,CREAT,GLUC,CA,AST,ALT,BILI TOTAL,ALK PHOS,ALB,PROT TOTAL) (07/11/2019 12:02 AM PST) + +---------+ + + + | Component | Value | Ref Range | Performed | Pathologist | | | | | At | Signature | + +---------+ + + + | GLUCOSE, | 170 (H) | 70 - 99 mg/dL | [...] | | | LABORATORY | | | BRAZILIAN | | | SERVICES, | | | [...] +---------+ + + + | TOTAL | 5.6 (L) | 6.4 - 8.2 g/dL | [facility] | | | PROTEIN, | | | LABORATORY | | | PLASMA | | | SERVICES, | | | (LAB) | | | CORE | | + +---------+ + + + | ALBUMIN, | 3.0 (L) | 3.5 - 4.7 g/dL | [...] +---------+ + + + | ANION | 8 | 4 - 11 mmol/L [...] +---------+ + + + | GLOBULIN | 2.6 | 2.3 - 3.5 gm/dL | [facility] [...] MDRD equation recommended by the National | [facility] | | Kidney Disease [...] not valid in the following situations: | | | - Patients under 18 years [...] + | [facility] | [address] | [place] [address] | | | SERVICES, CORE | [address] | | | + + + + + MAGNESIUM, PLASMA (07/10/2019 10:00 AM PST) + +---------+ + + + [...] Performed At | + + + | For hypomagnesemia and magnesium repletion | [facility] | | | LABORATORY | | | SERVICES, CORE | + + + + + + + + | Performing | Address | City/State/Zipcode | Phone Number | | Organization | | | | + + + + + | [facility] | [address] | [place] [address] | | | SERVICES, CORE | [address] | | | + + + + + BASIC METABOLIC SET (NA, K, CL, TCO2, BUN, CR, GLU, CA) (07/10/2019 10:00 AM PST) + +---------+ + + + [...] +---------+ + + + | CREATININE | 0.62 | 0.60 - 1.10 | [facility] | | | PLASMA | | mg/dL | LABORATORY | | | (LAB) | | | SERVICES, | | | | | | CORE | | + +---------+ + + + | EGFR | >60 | >60 mL/min | [facility] | | | - | | | LABORATORY | | | BRAZILIAN | | | SERVICES, | | | [...] +---------+ + + + | POTASSIUM, | 4.0 | 3.4 - 5.0 | [facility] | | | PLASMA | | mmol/L | LABORATORY | | | (LAB) | | | SERVICES, | | | | | | CORE | | + +---------+ + + + | CHLORIDE, | 107 [...] Performed At | + + + | For hypomagnesemia and magnesium repletion GFR is estimated using | [facility] | | the MDRD equation recommended by the National Kidney Disease Education | LABORATORY | | Program. Estimated GFR Interpretive Information: <60 mL/min/1.73 | SERVICES, CORE | | sq m Chronic Kidney Disease <15 mL/min/1.73 sq | | | m Kidney Failure Estimated GFR greater than 60 | | | mL/min/1.73 sq m is of limited clinical value. The MDRD equation | | | is not valid in the following situations: - Patients under 18 years | | | of age - Severe malnutrition or obesity - Vegetarian diet - Rapidly | | | changing kidney function - Amputees, paraplegics, or other | | | muscle-wasting diseases | | + + + + + + + + | Performing | Address | City/State/Zipcode | Phone Number | | Organization | | | | + + + + + | [facility] | [address] | [place] [address] | | | SERVICES, CORE | [address] | | | + + + + + POSACONAZOLE, QUANT (07/10/2019 10:00 AM PST) + + + + + + | Component | Value | Ref Range | Performed | Pathologist | | | | | At | Signature | + + + + + + | POSACONAZOL | 0.3 (L)Comment: | >=0.8 ug/mL | [facility] | | | E, | INTERPRETIVE | | REG UNIV | | | QUANTITATIO | INFORMATION: | | PTH - INTFC | | | N | Posaconazole, | | | | | | Quantitative | | | | | | | | | | | | by LC-MS/MS | | | | | | Therapeutic Range | | | | | | (trough): Greater than | | | | | | 0.7 ug/mL Adverse | | | | | | effects may include | | | | | | fever, nausea, vomiting, | | | | | | diarrhea, cardiac | | | | | | arrhythmias and liver | | | | | | toxicity. Test developed | | | | | | and characteristics | | | | | | determined by [facility] | | | | | | Laboratories. See | | | | | | Compliance Statement B: | | | | | | [employer].TwentyFeet/CSPerformed | | | | | | by [employer],[address] | | | | | [address], [facility] [place] | | | | | | [address] | | | | | | [phone].[employer]. | | | | | | com, Zeferino Wolf MD, | | | | [...] [facility] | [address] | [place], [place] | | | UNIV PTH - INTFC | | [address] | | + + + + + CBC AND AUTO DIFF (07/10/2019 12:12 AM PST) + + + + + + | Component | Value | Ref Range | Performed | Pathologist | | | | | At | Signature | + + + + + + | WHITE CELL | 4.23 | 3.50 - 10.80 | [facility] | | | COUNT | | K/cu mm | LABORATORY | | | | | | SERVICES, | | | | | | CORE | | + + + + + + | RED CELL | 2.44 (L) | 4.00 - 5.20 | [facility] | | | COUNT | | M/cu mm | LABORATORY | | | | | | SERVICES, | | | | | | CORE | | + + + + + + | HEMOGLOBIN | 6.7 (L) | 12.0 - 16.0 | [facility] | | | | | g/dL | LABORATORY | | | | | | SERVICES, | | | | | | CORE | | + + + + + + | HEMATOCRIT | 22.1 (L) | 36.0 - 46.0 % | [facility] | | | | | | LABORATORY | | | | | | SERVICES, | | | | | | CORE | | + + + + + + | MCV | 90.6 | 80.0 - 100.0 fL | [facility] [...] + + + | RDW SD | 56.4 (H) | 35.1 - 46.3 fL | [facility] | | | | | | LABORATORY | | | | | | SERVICES, | | | | | | CORE | | + + + + + + | PLATELET | 126 (L)Comment: | 150 - 400 K/cu | [...] + + + + | NEUTROPHIL | 72.8 (H) | 50.0 - 70.0 % | [...] + + + | MONOCYTE % | 6.6 | 3.5 - 9.0 % | [facility] [...] + + + + | NEUTROPHIL | 3.08 | 1.80 - 7.70 | [facility] | [...] + + + | MONOCYTE # | 0.28 | 0.10 - 0.90 | [facility] | [...] + + + + | IG# | 0.10 | 0.00 - 0.10 | [facility] | [...] [facility] | [address] | [place] [address] | | | SERVICES, CORE | [address] | | | + + + + + PHOSPHORUS, PLASMA (07/10/2019 12:12 AM PST) + +-------+ + + + [...] | + + + + + | [facility] | [address] | [place] [address] | | | SERVICES, CORE | [address] | | | + + + + + MAGNESIUM, PLASMA (07/10/2019 12:12 AM PST) + +---------+ + + + [...] | + + + + + | [facility] | [address] | [place] [address] | | | SERVICES, CORE | [address] | | | + + + + + COMPLETE METABOLIC SET (NA,K,CL,CO2,BUN,CREAT,GLUC,CA,AST,ALT,BILI TOTAL,ALK PHOS,ALB,PROT TOTAL) (07/10/2019 12:12 AM PST) + + + + + + | Component | Value | Ref Range | Performed | Pathologist | | | | | At | Signature | + + + + + + | GLUCOSE, | 129 [...] + + + + | CREATININE | 0.58 (L) | 0.60 - 1.10 | [facility] | | | PLASMA | | mg/dL | LABORATORY | | | (LAB) | | | SERVICES, | | | | | | CORE | | + + + + + + | EGFR | >60 | >60 mL/min | [facility] | | | - | | | LABORATORY | | | BRAZILIAN | | | SERVICES, | | | | | | CORE | | + + + + + + | EGFR NON | >60 | >60 mL/min | [facility] | | | -RENAE | | | LABORATORY | | | RICAN | | | SERVICES, | | | | | | CORE | | + + + + + + | SODIUM, | 140 | 136 - 145 | [facility] | | | PLASMA | | mmol/L | LABORATORY | | | (LAB) | | | SERVICES, | | | | | | CORE | | + + + + + + | POTASSIUM, | 2.9 (L) | 3.4 - 5.0 | [facility] | | | PLASMA | | mmol/L | LABORATORY | | | (LAB) | | | SERVICES, | | | | | | CORE | | + + + + + + | CHLORIDE, | 106 | 97 - 108 mmol/L | [facility] [...] + + + + | CALCIUM, | 8.0 (L) | 8.6 - 10.2 | [facility] | | | PLASMA | | mg/dL | LABORATORY | | | (LAB) | | | SERVICES, | | | | | | CORE | | + + + + + + | CALCIUM(ALB | 8.8 | 8.6 - 10.2 | [...] + + + + | TOTAL | 5.4 (L) | 6.4 - 8.2 g/dL | [facility] | | | PROTEIN, | | | LABORATORY | | | PLASMA | | | SERVICES, | | | (LAB) | | | CORE | | + + + + + + | ALBUMIN, | 3.0 (L) | 3.5 - 4.7 g/dL | [facility] | | | PLASMA | | | LABORATORY | | | (LAB) | | | SERVICES, | | | | | | CORE | | + + + + + + | ALK PHOS | 77 | 42 - 98 U/L | [facility] [...] + + + | ALT (SGPT) | 7 | <=60 U/L | [facility] | | [...] + + + + | BUN/CREATIN | 14 | 8 - 25 | [facility] | | | INE RATIO | | | LABORATORY | | | | | | SERVICES, | | | | | | CORE | | + + + + + + | GLOBULIN | 2.4 | 2.3 - 3.5 gm/dL | [facility] [...] not valid in the following situations: | | | - Patients under 18 years [...] | + + + + + | [facility] | [address] | [place] [address] | | | SERVICES, CORE | [address] | | | + + + + + HAPTOGLOBIN (07/09/2019 1:25 PM PST) + +-------+ + + + | Component | Value | Ref Range | Performed | Pathologist | | | | | At | Signature | + +-------+ + + + | HAPTOGLOBIN | 171 | 30 - 200 mg/dL | [facility] | | | | [...] [facility] | [address] | [place] [address] | | | SERVICES, CORE | [address] | | | + + + + + TACROLIMUS, WHOLE BLOOD (07/09/2019 9:17 AM PST) + +---------+ + + + | Component | Value | Ref Range | Performed | Pathologist | | | | | At | Signature | + +---------+ + + + | TACROLIMUS | 3.6 (L) | 5.0 - 15.0 | [facility] [...] | Test performed by immunoassay using [employer]er i2000. . | [facility] | | Samples [...] [facility] | [address] | [place] [address] | | | SERVICES, SPECIAL | [address] | | | | IMM + COAG | | | | + + + + + RETICULOCYTE COUNT, BLOOD (07/09/2019 12:07 AM PST) + + + + + + | Component | Value | Ref Range | Performed | Pathologist | | | | | At | Signature | + + + + + + | RETICULOCYT | 5.0 (H) | 0.5 - 1.5 % | [facility] | | | E COUNT | | | LABORATORY | | | | | | SERVICES, | | | | | | CORE | | + + + + + + | RETIC | 127.0 (H) | 10.0 - 90.0 | [facility] | | | ABSOLUTE # | | K/cu mm | LABORATORY [...] | + + + + + | [facility] | [address] | [place] [address] | | | MENG, LUZMARIA | [address] | | | + + + + + CBC AND AUTO DIFF (07/09/2019 12:07 AM PST) + + + + + + | Component | Value | Ref Range | Performed | Pathologist | | | | | At | Signature | + + + + + + | WHITE CELL | 4.17 | 3.50 - 10.80 | [facility] | [...] + + + + | HEMOGLOBIN | 7.0 (L) | 12.0 - 16.0 | [facility] | | | | | g/dL | LABORATORY | | | | | | SERVICES, | | | | | | CORE | | + + + + + + | HEMATOCRIT | 23.3 (L) | 36.0 - 46.0 % | [facility] | | | | | | LABORATORY | | | | | | SERVICES, | | | | | | CORE | | + + + + + + | MCV | 92.8 | 80.0 - 100.0 fL | [facility] | | | | | | LABORATORY | | | | | | SERVICES, | | | | | | CORE | | + + + + + + | MCHC | 30.0 (L) | 32.0 - 36.0 | [facility] | | | | | g/dL | LABORATORY | | | | | | SERVICES, | | | | | | CORE | | + + + + + + | RDW SD | 57.9 (H) | 35.1 - 46.3 fL | [facility] | | | | | | LABORATORY | | | | | | SERVICES, | | | | | | CORE | | + + + + + + | PLATELET | 206Comment: Few platelet | 150 - 400 K/cu | [facility] | | | COUNT | clumps present. | mm | LABORATORY | [...] + + + + | NEUTROPHIL | 75.6 (H) | 50.0 - 70.0 % | [facility] | | | % | | | LABORATORY | | | | | | SERVICES, | | | | | | CORE | | + + + + + + | LYMPHOCYTE | 16.8 (L) | 18.0 - 42.0 % | [facility] | | | % | | | LABORATORY | | | | | | SERVICES, | | | | | | CORE | | + + + + + + | MONOCYTE % | 5.0 | 3.5 - 9.0 % | [facility] [...] + + + + | NEUTROPHIL | 3.15 | 1.80 - 7.70 | [facility] | | | # | | K/cu mm | LABORATORY | | | | | | SERVICES, | | | | | | CORE | | + + + + + + | LYMPHOCYTE | 0.70 (L) | 1.00 - 4.80 | [facility] | | | # | | K/cu mm | LABORATORY | | | | | | SERVICES, | | | | | | CORE | | + + + + + + | MONOCYTE # | 0.21 | 0.10 - 0.90 | [facility] | [...] | + + + + + | [facility] | [address] | [place] [address] | | | SERVICES, CORE | [address] | | | + + + + + PHOSPHORUS, PLASMA (07/09/2019 12:00 AM PST) + +-------+ + + + | Component | Value | Ref Range | Performed | Pathologist | | | | | At | Signature | + +-------+ + + + | PHOSPHORUS, | 3.4 | 2.4 - 4.7 mg/dL | [facility] [...] | + + + + + | [facility] | [address] | [place] [address] | | | SERVICES, CORE | [address] | | | + + + + + MAGNESIUM, PLASMA (07/09/2019 12:00 AM PST) + +-------+ + + + | Component | Value | Ref Range | Performed | Pathologist | | | | | At | Signature | + +-------+ + + + | MAGNESIUM,P | 1.8 | 1.6 - 2.6 mg/dL | [facility] [...] | + + + + + | [facility] | [address] | [place] [address] | | | SERVICES, CORE | [address] | | | + + + + + COMPLETE METABOLIC SET (NA,K,CL,CO2,BUN,CREAT,GLUC,CA,AST,ALT,BILI TOTAL,ALK PHOS,ALB,PROT TOTAL) (07/09/2019 12:00 AM PST) + +---------+ + + + | Component | Value | Ref Range | Performed | Pathologist | | | | | At | Signature | + +---------+ + + + | GLUCOSE, | 138 [...] | | | LABORATORY | | | BRAZILIAN | | | SERVICES, | | | [...] +---------+ + + + | CHLORIDE, | 109 (H) | 97 - 108 mmol/L | [...] +---------+ + + + | TOTAL | 5.6 (L) | 6.4 - 8.2 g/dL | [facility] | | | PROTEIN, | | | LABORATORY | | | PLASMA | | | SERVICES, | | | (LAB) | | | CORE | | + +---------+ + + + | ALBUMIN, | 2.9 (L) | 3.5 - 4.7 g/dL | [...] + + + | ALT (SGPT) | 7 | <=60 U/L | [facility] | | [...] not valid in the following situations: | | | - Patients under 18 years [...] + | [facility] | [address] | [place] [address] | | | SERVICES, CORE | [address] | | | + + + + + CRYPTOCOCCAL ANTIGEN, SERUM (07/09/2019 12:00 AM PST) + + + + + + | Component | Value | Ref Range | Performed | Pathologist | | | | | At | Signature | + + + + + + | CRYPTO AG, | Negative | Negative | [facility] | | | SER | | | LABORATORY | | | [...] | + + + + + | [facility] | [address] | [place] [address] | | | SERVICES, CORE | [address] | | | + + + + + ASPERGILLUS GALACTOMANNAN ANTIGEN, SERUM (07/09/2019 12:00 AM PST) + + + + + + | Component | Value | Ref Range | Performed | Pathologist | | | | | At | Signature | + + + + + + | ASPERGILLUS | Negative | Negative | [facility] | | | | | | LABORATORY | | | GALACTOMANN | | | SERVICES, | | | AN AG | | | SPECIAL IMM | | | | | | + COAG | | + + + + + + | ASP GAL | 0.06 | <=0.49 Index | [facility] | | | INDEX, SER | | | LABORATORY | | | [...] Performed At | + + + | INTERPRETATION: Aspergillus galactomannan Antigen by EIA | [facility] | | | LABORATORY | | This test | SERVICES, | | has not been evaluated in neonates and reference ranges have not been | SPECIAL IMM + | | established for this age group. | COAG | | Negative results do not exclude the diagnosis of | | | invasive Aspergillosis. False negative results may be seen in | | | patients receiving concomitant anti-fungals, and patients with | | | chronic granulomatous disease and Job's syndrome. | | | | | | | | | A single | | | positive test result (index equal to or greater than 0.5) should be | | | clinically correlated by testing a separate serum because many agents | | | (e.g. food, antibiotics) may cross-react with the assay. False | | | positive results may also be seen in very young children, patients | | | with altered intestinal barrier, and patients infected with | | | other genre of fungi such as Penicillium, Alternaria, Histoplasma, | | | and Geotrichum. If invasive Aspergillosis is | | | suspected in high-risk patients,serial sampling is | | | recommended. | | | | | + + + + + + + + | Performing | Address | City/State/[facility] | Phone Number | | Organization | | | | + + + + + | [facility] | [address] | [place] [address] | | | SERVICES, SPECIAL | [address] | | | | IMM + COAG | | | | + + + + + GI EXTENDED BACTERIAL PANEL, STOOL (07/08/2019 9:59 PM PST) + + + + + + | Component | Value | Ref Range | Performed | Pathologist | | | | | At | Signature | + + + + + + | Salmonella | Not Detected | Not Detected | [facility] | | | species | | | [facility] | | | | | [facility] | | + + + + + + | Shigella | Not Detected | Not Detected | [facility] | | | species/EIE | | | [facility] - | | | C | | | [place] | | + + + + + + | Campylobact | Not Detected | Not Detected | [facility] | | | er species | | | [facility] - | | | | | | [place] | | + + + + + + | E. coli | Not Detected | Not Detected | [facility] | | | Shiga toxin | | | [facility] - | | | (1 and 2) | | | [place] | | + + + + + + | Plesiomonas | Not Detected | Not Detected | [facility] | | | | | | [facility] - | | | shigelloide | | | [place] | | | s | | | | | + + + + + + | Vibrio | Not Detected | Not Detected | [facility] | | | species | | | AIRPORT - | | | | | | [place] | | + + + + + + | Yersinia | Not Detected | Not Detected | [facility] | | | enterocolit | | | [facility] - | | | ica | | | [place] | | + + + + + + | Enterotoxig | Not Detected | Not Detected | [facility] | | | enic | | | [facility] - | | | Escherichia | | | [place] | | | coli | | | | | | (ETEC) | | | | | + + + + + + + + | Specimen | + + | Stool - Rectum | | structure (body | | structure) | + + + + + + + | Performing | Address | City/State/Zipcode | Phone Number | | Organization | | | | + + + + + | [facility] | [address] | [place] [address] | | | [place] | | | | + + + + + GI VIRUS PANEL, STOOL (07/08/2019 9:59 PM PST) + + + + + + | Component | Value | Ref Range | Performed | Pathologist | | | | | At | Signature | + + + + + + | Adenovirus | Not Detected | Not Detected | [facility] | | | | | | [place] | | + + + + + + | Astrovirus | Not Detected | Not Detected | [facility] | [facility] | | | | | | [place] | | + + + + + + | Norovirus | Not Detected | Not Detected | [facility] | | | | | | [place] | | + + + + + + | Rotavirus | Not Detected | Not Detected | [facility] | | | | | | [place] | | + + + + + + | Sapovirus | Not Detected | Not Detected | [facility] | [facility] | | | | | | [place] | | + + + + + + + + | Specimen | + + | Stool - Rectum | | structure (body | | structure) | + + + + + + + | Performing | Address | City/State/Zipcode | Phone Number | | Organization | | | | + + + + + | [facility] | [address] | [place] [address] | | | [place] | | | | + + + + + SURGICAL PATHOLOGY (07/08/2019 5:13 PM PST) + + + + + + | Component | Value | Ref Range | Performed | Pathologist | | | | | At | Signature | + + + + + + | Addendum 1 | This addendum is to | | [facility] | Addendum | | | report the results of an | | DEPARTMENT | electronically | | | immunohistochemical | | OF | signed by | | | stain only; it does not | | PATHOLOGY | Aniya L | | | alter the diagnosis.An | | | MD Alec on | | | immunohistochemical | | | 07/12/2019 at | | | stain for H. Pylori | | | 9:27 AM | | | (block B1) is NEGATIVE. 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 | | | | + + + + + + | Final | A. Duodenum, biopsy: | | [facility] | Electronically | | Pathologic | Active duodenitis; see | | DEPARTMENT | signed by | | Diagnosis | comment.B. 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 Rare, | | | 4:44 PM | | | scattered crypt | | | | | | apoptoses. C. Esophagus, | | | | | | biopsy: Squamous | | | | | | mucosa with rare | | | | | | intraepithelial | | | | | | eosinophils (up to 2 / | | | | | | HPF); see comment. | | | | | | Rare mucosal apoptosis | | | | | | and dyskeratoses.D. | | | | | | Rectum, biopsy: | | | | | | Active colitis; see | | | | | | comment. Rare crypt | | | | | | apoptoses.Comment: | | | | | | Overall, there is | | | | | | scattered mild active | | | | | | inflammation in the | | | | | | stomach, duodenum and | | | | | | rectum. While rare crypt | | | | | | apoptoses are present, | | | | | | no groups (>4 apoptotic | | | | | | bodies per crypt) are | | | | | | seen; no crypt drop out | | | | | | is seen. No viropathic | | | | | | changes are seen and an | | | | | | immunohistochemical | | | | | | stain for CMV (block D) | | | | | | is NEGATIVE. Overall, | | | | | | the histologic features | | | | | | are non-specific and | | | | | | could be seen in the | | | | | | setting of infection or | | | | | | medication use. Early | | | | | | (grade 1) GVHD cannot be | | | | | | entirely excluded; | | | | | | however, is not favored. | | | | | | Preliminary results | | | | | | were communicated at | | | | | | 1115 on 07/09/19 to | | | | | | Aniya Villanueva (GI).Case | | | | | | seen by:Chapito Delcid, | | | | | | DO | | | | | | | | | | | | Pathology | | | | | | Guzman Snow | | | | | | MD Alec | | | | | | | | | | | | PathologistPathology, | | | | | | [facility] | | | | | | [facility] My electronic | | | | | | signature indicates | | | | | | that I have personally | | | | | | reviewed all diagnostic | | | | | | slides, the gross and/or | | | | | | microscopic portion of | | | | | | this report and | | | | | | formulated the final | | | | | | diagnosis. | | | | + + + + + + | Gross | Received are 4 specimens | | [facility] | | | Description | in formalin labeled | | DEPARTMENT | | | | with the patient's name | | OF | | | | (initials [facility]) and | | PATHOLOGY | | | | medical record number | | | | | | [id number].A. Duodenum, | | | | | | bx: Received labeled | | | | | | "DUOD BX-A" are 3 | | | | | | perez-pink, irregular | | | | | | fragments of tissue | | | | | | ranging in greatest | | | | | | dimension from 0.1 to | | | | | | 0.3 cm. The specimen is | | | | | | submitted entirely in | | | | | | cassette A1.B. Gastric, | | | | | | bx: Received labeled | | | | | | "GAS BX-B" are 6 | | | | | | perez-pink, irregular | | | | | | fragments of tissue | | | | | | ranging greatest | | | | | | dimension from 0.2 to | | | | | | 0.5 cm. The specimen is | | | | | | submitted entirely in | | | | | | cassette B1.C. | | | | | | Esophagus, bx: Received | | | | | | labeled "ESO BX-C" are 2 | | | | | | perez-white, irregular | | | | | | fragments of tissue | | | | | | measuring 0.2 and 0.3 cm | | | | | | in greatest dimension. | | | | | | The specimen is | | | | | | submitted entirely in | | | | | | cassette C1.D. Rectum, | | | | | | bx: Received labeled | | | | | | "RECM BX-D" are 7 | | | | | | perez-pink, irregular | | | | | | fragments of tissue | | | | | | ranging in greatest | | | | | | dimension from 0.1 to | | | | | | 0.3 cm. The specimen is | | | | | | submitted entirely in | | | | | | cassette D1.(RLW) | | | | + + + + + + | Ancillary | Analyte specific | | [facility] | | | Information | reagents are used in | | DEPARTMENT | | | | many laboratory tests | | OF | | | | necessary for standard | | PATHOLOGY | | | | medical care. This [...] + | Specimen | + + | Tissue - Duodenal | | structure (body | | structure) | + + | Tissue - Gastric | + + | Tissue - Esophageal | | structure (body | | structure) | + + | Tissue - Rectum | | structure (body | | structure) | + + + + + + + | Performing | Address | City/State/Zipcode | Phone Number | | Organization | | | | + + + + + | [facility] | [address] | [place] [address] | | | PATHOLOGY | [address] | | | + + + + + FLEXIBLE SIGMOIDOSCOPY (07/08/2019 4:47 PM PST) + + | Specimen | + + | | + + + + + | Narrative | Performed At | + + + | MRN: | [facility] | | [id number] Date: 07/08/2019Patient Name: Analy Fisher #: | LESLEY | | [id number] of : 1965CSN: [id number] Type: | | | InpatientRoom: GI 1Procedure: Flexible | | | SigmoidoscopyIndications: Lower abdominal pain, Diarrhea, | | | Suspected lbokx-lennup-xwtq | | | diseaseProviders: SO DRUMMOND MD (Fellow), ANIYA VILLANUEVA, | | | (Doctor), KEENA WISE RN | | | (Nurse), SEJAL FAULKNER (Clean [employer] Grader And Reel Tender)Referring MD: SO | | | BHANU MDRequesting Provider: Medicines: | | | NoneComplications: No immediate complications.Procedure: | | | Pre-Anesthesia Assessment: - | | | ASA Grade Assessment: III - A patient with severe | | | systemic disease. - After | | | reviewing the risks and benefits, the patient | | | was deemed in satisfactory condition to undergo the | | | procedure. - The | | | anesthesia plan was to use moderate | | | sedation/analgesia (conscious sedation). | | | - Immediately prior to administration of medications, | | | the patient was re-assessed for adequacy to receive | | | sedatives. | | | - Sedation was administered by an endoscopy nurse. The | | | sedation level attained was moderate. | | | - The heart rate, respiratory rate, oxygen | | | saturations, blood pressure, adequacy | | | of pulmonary ventilation, and response | | | to care were monitored throughout the procedure. | | | - The physical status of the patient was re-assessed | | | after the procedure. | | | Prior to the procedure, a History and Physical with | | | airway assessment was performed (see patient | | | record), and patient medications and | | | allergies were reviewed. The risks and | | | benefits of the procedure and the sedation | | | options and risks were discussed. All questions were | | | answered and informed consent was obtained. After | | | reviewing the risks and benefits, the | | | patient was deemed in satisfactory | | | condition to undergo the procedure. | | | Immediately prior to administration of medications, the | | | patient was re-assessed for adequacy to receive | | | sedatives. The heart rate, respiratory | | | rate, oxygen saturations, blood | | | pressure, adequacy of pulmonary | | | ventilation, and response to care were monitored | | | throughout the procedure. The physical status of the | | | patient was re-assessed after the procedure. | | | The Olympus GIF-HQ190 Endoscope #[id number] | | | was introduced through the anus and | | | advanced to the sigmoid colon. The | | | flexible sigmoidoscopy was accomplished without | | | difficulty. The patient tolerated the procedure well. | | | The quality of the bowel preparation was | | | good.Estimated Blood Loss: Estimated blood loss: none.Findings: | | | The rectum and rectosigmoid appeared normal. Biopsies were taken | | | with a cold forceps for histology.Moderate Sedation: | | | Moderate (conscious) sedation was administered by the endoscopy nurse | | | and supervised by the endoscopist. The following parameters | | | were monitored: oxygen saturation, heart rate, blood pressure, | | | and response to care. Total physician intraservice time was 5 | | | minutes.Impression: - The rectum and rectosigmoid are | | | normal. Biopsied to rule out | | | GvHD.Recommendation: - Return patient to hospital [facility] for | | | ongoing care. - Advance to regular diet. | | | - Await pathology results (rushed). | | | - Defer to BMT on ongoing care.Attending | | | Participation: I was present and participated during the entire | | | procedure, including non-bradley portions.ANIYA VILLANUEVA MD07/08/2019 | | | 9:58:00 PMThis report has been signed electronically.So Drummond, | | | ELAINE DRUMMOND MD07/08/2019 5:38:39 PMNumber of Addenda: 0Note | | | Initiated On: 07/08/2019 4:47 [facility] Letter to: ERICKA oByd | | | LACY SANCHEZ | | | non-bradley portions. | | |ANIYA VILLANUEVA MD | | |07/08/2019 9:58:00 PM | | |This report has been signed electronically. | | |So Drummond MD | | |SO DRUMMOND MD | | |07/08/2019 5:38:39 PM | | |Number of Addenda: 0 | | |Note Initiated On: 07/08/2019 4:47 PM | | |CC Letter to: | | | LACY FRIEDMAN | | + + + + +---------+ + + | Performing | Address | City/State/Zipcode | Phone Number | | Organization | | | | + +---------+ + + | [facility] | | | | + +---------+ + + EGD (07/08/2019 4:46 PM PST) + + | Specimen | + + | | + + + + --+ | Narrative | Performed A t | + + --+ | MRN: | [facility] | | [id number] Date: 07/08/2019Patient Name: Analy Fisher #: | ENDOSCOPY | | [id number] of : 1965CSN: [id number] Type: | | | InpatientRoom: GI 1Procedure: Upper GI | | | endoscopyIndications: Lower abdominal pain, Nausea, | | | Chronic diarrhea, Suspected | | | lvmok-mvpkxt-skra diseaseProviders: SO DRUMMOND MD | | | (Fellow), ANIYA VILLANUEVA MD (Doctor), | | | KEENA WISE RN (Nurse), SEJAL FAULKNER (Clean Rice Grader And Reel Tender)Referring MD: | | | SO DRUMMOND MDRequesting Provider: Medicines: | | | Midazolam 4 mg IV, Fentanyl 100 micrograms IVComplications: | | | No immediate complications.Procedure: Pre-Anesthesia | | | Assessment: - ASA Grade Assessment: III | | | - A patient with severe systemic | | | disease. - After reviewing the risks and | | | benefits, the patient was deemed in | | | satisfactory condition to undergo the | | | procedure. - The anesthesia plan was to | | | use moderate sedation/analgesia | | | (conscious sedation). - Immediately | | | prior to administration of medications, | | | the patient was re-assessed for adequacy to receive | | | sedatives. - Sedation was | | | administered by an endoscopy nurse. The | | | sedation level attained was moderate. | | | - The heart rate, respiratory rate, oxygen saturations, | | | blood pressure, adequacy of pulmonary ventilation, | | | and response to care were monitored | | | throughout the procedure. - The physical | | | status of the patient was re-assessed | | | after the procedure. Prior to the | | | procedure, a History and Physical with | | | airway assessment was performed (see patient record), | | | and patient medications and allergies were reviewed. | | | The risks and benefits of the procedure | | | and the sedation options and risks | | | were discussed. All questions were | | | answered and informed consent was obtained. After | | | reviewing the risks and benefits, the patient was deemed | | | in satisfactory condition to undergo the | | | procedure. Immediately prior to | | | administration of medications, the | | | patient was re-assessed for adequacy to receive | | | sedatives. The heart rate, respiratory rate, oxygen | | | saturations, blood pressure, adequacy of | | | pulmonary ventilation, and response to | | | care were monitored throughout the | | | procedure. The physical status of the | | | patient was re-assessed after the procedure. | | | The Olympus GIF-HQ190 Endoscope #[id number] was introduced | | | through the mouth, and advanced to the second | | | part of duodenum. The upper GI | | | endoscopy was accomplished without | | | difficulty. The patient tolerated the procedure | | | well.Estimated Blood Loss: Estimated blood loss was | | | minimal.Findings: The examined esophagus was normal. This was | | | biopsied with a cold forceps for histology. The entire | | | examined stomach was normal. Biopsies were taken with a cold | | | forceps for histology. The examined duodenum was normal. | | | Biopsies were taken with a cold forceps for histology.Moderate | | | Sedation: Moderate (conscious) sedation was administered by the | | | endoscopy nurse and supervised by the endoscopist. The | | | following parameters were monitored: oxygen saturation, heart | | | rate, blood pressure, and response to care. Total physician | | | intraservice time was 15 minutes.Impression: - Normal | | | esophagus. Biopsied. - Normal stomach. | | | Biopsied. - Normal examined duodenum. | | | Biopsied.Recommendation: - Proceed to | | | flexible-sigmoidoscopyAttending Participation: I was present and | | | participated during the entire procedure, including non-bradley | | | portions.ANIYA VILLANUEVA MD07/08/2019 9:56:55 PMThis report has been signed | | | electronically.ELAINE Parada MD07/08/2019 5:35:40 | | | PMNumber of Addenda: 0Note Initiated On: 07/08/2019 4:46 [facility] Letter | | | to: LACY FRIEDMAN | | | I was present and participated during the entire procedure, including | | | non-bradley portions. | | |ANIYA VILLANUEVA MD | | |07/08/2019 9:56:55 PM | | |This report has been signed electronically. | | |So Drummond MD | | |SO DRUMMOND MD | | |07/08/2019 5:35:40 PM | | |Number of Addenda: 0 | | |Note Initiated On: 07/08/2019 4:46 PM | | |CC Letter to: | | | LACY FRIEDMAN | | + + --+ + +---------+ + + | Performing | Address | City/State/Zipcode | Phone Number | | Organization | | | | + +---------+ + + | [facility] | | | | + +---------+ + + CT CHEST WO CONTRAST (07/08/2019 1:55 PM PST) + + | Specimen | + + | | + + + + + | Narrative | Performed At | + + + | EXAM: CT CHEST WO CONTRAST HISTORY: Concern for a typical | [facility] | | pneumonia. COMPARISON: Outside chest CT 01/13/2019, 01/10/2019 | RADIOLOGY VOICE | | TECHNIQUE: Helical scanning was obtained of the chest without | RECOGNITION 2 | | intravenous contrast and reviewed in soft tissue and lung algorithm. | | | Coronal and sagittal images were also generated. FINDINGS: | | | Heart is normal in size. No pericardial effusion. Low-attenuation | | | blood pool suggests anemia. Coronary artery calcifications are | | | present. Aorta and main pulmonary artery are normal in caliber. The | | | left central venous IJ central venous catheter with tip in the | | | cavoatrial junction. No thoracic lymphadenopathy. The visualized | | | portions of the thyroid are within normal limits. No pleural | | | effusion or pneumothorax. Bilateral mild upper lobe predominant upper | | | lobe predominant centrilobular and paraseptal emphysema. Focal nodular | | | consolidation with adjacent groundglass opacities in the right lower | | | lobe. Scattered groundglass and tree-in-bud nodularities in the | | | inferior lingula and right middle lobe. More discrete appearing nodule | | | in the lingula noted measuring 5 mm (slice 132), stable compared to | | | imaging from 01/10/2019. Mild diffuse airway thickening noted which may | | | reflect sequela of chronic bronchitis given emphysematous changes. No | | | cavitary lesions. No pulmonary edema. No acute osseous | | | abnormality. No destructive osseous lesion. No acute soft tissue | | | abnormality. Visualized portions of the upper abdomen show no acute | | | abnormality. Low-attenuation focus in the periphery of the spleen or | | | for inferior aspect of the left hepatic lobe may reflect a small cyst. | | | IMPRESSION: Nodular area of focal consolidation with | | | surrounding groundglass opacities in the right lower lobe, as well as | | | scattered groundglass and tree-in-bud opacities in the right middle | | | lobe and lingula. These findings were not present in the prior chest | | | CT from 01/13/2019 and favor infection. In the setting of | | | immunocompromised status, atypical infections are consideration | | | including fungal given nodular appearance. Imaging follow-up to full | | | resolution recommended after appropriate treatment. More discrete | | | nodule in the lingula measuring 5 mm is stable compared to imaging | | | from 01/10/2019. Attention on follow-up. I have personally reviewed | | | the images and, if necessary, edited the report. I agree with the | | | report as now presented. Final signature: Nathalie Araujo MD | | | 07/08/2019 6:31 PM Preliminary: Rios Herman MD Dictation | | | initiated: Rios Herman MD 07/08/2019 3:27 PM | | + + + + + | Procedure Note | + + | Service Account, [employer] Interface - 07/08/2019 6:32 PM PST EXAM: CT CHEST WO | | CONTRAST HISTORY: Concern for a typical pneumonia. COMPARISON: Outside chest CT | | 01/13/2019, 01/10/2019 TECHNIQUE: Helical scanning was obtained of the chest without | | intravenous contrast and reviewed in soft tissue and lung algorithm. Coronal and | | sagittal images were also generated. FINDINGS: Heart is normal in size. No pericardial | | effusion. Low-attenuation blood pool suggests anemia. Coronary artery calcifications are | | present. Aorta and main pulmonary artery are normal in caliber. The left central | | venous IJ central venous catheter with tip in the cavoatrial junction. No thoracic | | lymphadenopathy. The visualized portions of the thyroid are within normal limits. No | | pleural effusion or pneumothorax. Bilateral mild upper lobe predominant upper lobe | | predominant centrilobular and paraseptal emphysema. Focal nodular consolidation with | | adjacent groundglass opacities in the right lower lobe. Scattered groundglass and | | tree-in-bud nodularities in the inferior lingula and right middle lobe. More discrete | | appearing nodule in the lingula noted measuring 5 mm (slice 132), stable compared to | | imaging from 01/10/2019. Mild diffuse airway thickening noted which may reflect sequela | | of chronic bronchitis given emphysematous changes. No cavitary lesions. No pulmonary | | edema. No acute osseous abnormality. No destructive osseous lesion. No acute soft tissue | | abnormality. Visualized portions of the upper abdomen show no acute abnormality. | | Low-attenuation focus in the periphery of the spleen or for inferior aspect of the left | | hepatic lobe may reflect a small cyst. IMPRESSION: Nodular area of focal consolidation | | with surrounding groundglass opacities in the right lower lobe, as well as scattered | | groundglass and tree-in-bud opacities in the right middle lobe and lingula. These | | findings were not present in the prior chest CT from 01/13/2019 and favor infection. In | | the setting of immunocompromised status, atypical infections are consideration including | | fungal given nodular appearance. Imaging follow-up to full resolution recommended after | | appropriate treatment. More discrete nodule in the lingula measuring 5 mm is stable | | compared to imaging from 01/10/2019. Attention on follow-up. I have personally reviewed | | the images and, if necessary, edited the report. I agree with the report as now | | presented. Final signature: Nathalie Araujo MD 07/08/2019 6:31 PM Preliminary: Rios | | Rey Herman MD Dictation initiated: Rios Herman MD 07/08/2019 3:27 PM | |Final signature: Nathalie Araujo MD 07/08/2019 6:31 PM | |Preliminary: Rios Herman MD | |Dictation initiated: Rios Herman MD 07/08/2019 3:27 PM | + + + +---------+ + + | Performing | Address | City/State/Zipcode | Phone Number | | Organization | | | | + +---------+ + + | [facility] | | | | | VOICE RECOGNITION 2 | | | | + +---------+ + + LEGIONELLA AG, URINE (07/08/2019 12:45 PM PST) + + + + + + | Component | Value | Ref Range | Performed | Pathologist | | | | | At | Signature | + + + + + + | LEGIONELLA | NegativeComment: Sample | Negative | [facility] | | | AG, UR | is negative for the | | REG UNIV | | | | presence of L. | | PTH - [facility] | | | | pneumophila serogroup 1 | | | | | | antigen in urine, | | | | | | suggesting no recent or | | | | | | current infection. | | | | | | Legionnaires' Disease | | | | | | cannot be ruled out | | | | | | since other serogroups | | | | | | and species may also | | | | | | cause | | | | | | disease.INTERPRETIVE | | | | | | INFORMATION: Legionella | | | | | | pneumophila Antigen, | | | | | | UrineThis assay detects | | | | | | Legionella pneumophila | | | | | | serogroup one (1) | | | | | | antigen.Performed by | | | | | | [facility],[address] | | | | | [address], [facility] [place] | | | | | | [address] | | | | | | [phone].[employer]. | | | | | | [facility] hospitalZeferino MD, | | | | | | Lab. Director | | | | + + + + + + + + | Specimen | + + | Urine - Urine | | (substance) | + + + + + + + | Performing | Address | City/State/Zipcode | Phone Number | | Organization | | | | + + + + + | [facility] | [address] [facility] | [place], [place] | | | UNIV PTH - [facility] | | [address] | | + + + + + STREP PNEUMONIAE AG, URINE (07/08/2019 12:45 PM PST) + + + + + + | Component | Value | Ref Range | Performed | Pathologist | | | | | At | Signature | + + + + + + | STREP. | NegativeComment: | Negative | [facility] | | | PNEUMONIAE | INTERPRETIVE | | REG UNIV | | | AG, URINE | INFORMATION: | | PTH - [facility] | | | | Streptococcus pneumoniae | | | | | | Ag, | | | | | | UrineFalse-positives may | | | | | | occur because of | | | | | | cross-reactivity with | | | | | | other members of the S. | | | | | | mitis group. Clinical | | | | | | correlation is | | | | | | recommended.Performed by | | | | | | [facility],[address] | | | | | | [address], [facility] [place] | | | | | | [address] | | | | | | [phone].[facility]. | | | | | | Zeferino montelongo MD, | | | | | | Lab. Director | | | | + + + + + + + + | Specimen | + + | Urine - Urine | | (substance) | + + + + + + + | Performing | Address | City/State/Zipcode | Phone Number | | Organization | | | | + + + + + | [facility] | [address] | [place], [place] | | | UNIV PTH - INT[facility] | | [address] | | + + + + + C. DIFFICILE TOXIN, W/REFLEX CONFIRMATION IF INDETERMINATE RESULTS (07/08/2019 2:53 AM PST ) + + + + + + | Component | Value | Ref Range | Performed | Pathologist | | | | | At | Signature | + + + + + + | C.DIFFICILE | Negative | Negative | [facility] | | | TOXIN | | | LABORATORY | | | | | | SERVICES, | | | | | | CORE | | + + + + + + + + | Specimen | + + | Stool - Rectum | | structure (body | | structure) | + + + + + + + | Performing | Address | City/State/Zipcode | Phone Number | | Organization | | | | + + + + + | [facility] | [address] | [place] [address] | | | SERVICES, CORE | [address] | | | + + + + + URINE, MICROSCOPIC EXAM (07/08/2019 1:50 AM PST) + +---------+ + + + | Component | Value | Ref Range | Performed | Pathologist | | | | | At | Signature | + +---------+ + + + | RED CELLS | 1 | 0 - 3 /hpf | [facility] | | | | | | LABORATORY | | | | | | SERVICES, | | | | | | CORE | | + +---------+ + + + | WHITE CELLS | 3 | 0 - 5 /hpf | [facility] | | | | | | LABORATORY | | | | | | SERVICES, | | | | | | CORE | | + +---------+ + + + | BACTERIA | None | None /hpf | [facility] | | | | | | LABORATORY | | | | | | SERVICES, | | | | | | CORE | | + +---------+ + + + | YEAST (LAB) | None | None /hpf | [facility] | | | | | | LABORATORY | | | | | | SERVICES, | | | | | | CORE | | + +---------+ + + + | SQUAMOUS | None | None, Few /hpf | [facility] | | | EPITHELIAL | | | LABORATORY | | | | | | SERVICES, | | | | | | CORE | | + +---------+ + + + | MUCOUS | None | None, Few /hpf | [facility] | | | | | | LABORATORY | | | | | | SERVICES, | | | | | | CORE | | + +---------+ + + + | NON-SQUAMOU | Few (A) | None /hpf | [facility] | | | S EPITH | | | LABORATORY | | | | | | SERVICES, | | | | | | CORE | | + +---------+ + + + | HYALINE | 0 | 0 - 2 /lpf | [facility] | | | CASTS | | | LABORATORY | | | | | | SERVICES, | | | | | | CORE | | + +---------+ + + + | GRANULAR | 0 | 0 - 2 /lpf | [facility] | | | CASTS | | | LABORATORY | | | | | | SERVICES, | | | | | | CORE | | + +---------+ + + + | CELLULAR | 0 | <=0 /lpf | [facility] | | | CASTS | | | LABORATORY | | | | | | SERVICES, | | | | | | CORE | | + +---------+ + + + | TRIPLE P04 | None | None, Few /hpf | [facility] | | | CRYSTALS | | | LABORATORY | | | | | | SERVICES, | | | | | | CORE | | + +---------+ + + + | CALCIUM | None | None, Few /hpf | [facility] | | | OXALATE | | | LABORATORY | | | ANTONINA | | | SERVICES, | | | | | | CORE | | + +---------+ + + + | URIC ACID | None | None, Few /hpf | [facility] | | | CRYSTALS | | | LABORATORY | | | | | | SERVICES, | | | | | | CORE | | + +---------+ + + + | AMORPHOUS | None | None, Few /hpf | [facility] | | | CRYSTALS | | | LABORATORY | | | | | | SERVICES, | | | | | | CORE | | + +---------+ + + + + + | Specimen | + + | Urine - Urine | | specimen collection, | | clean catch | | (procedure) | + + + + + + + | Performing | Address | City/State/Zipcode | Phone Number | | Organization | | | | + + + + + | [facility] | [address] | [place] [address] | | | SERVICES, CORE | [address] | | | + + + + + TRIPP RICHARD ONLY (07/08/2019 1:50 AM PST) + + + + + + | Component | Value | Ref Range | Performed | Pathologist | | | | | At | Signature | + + + + + + | COLOR(UR) | Straw | | [facility] | | | | | | LABORATORY | | | | | | SERVICES, | | | | | | CORE | | + + + + + + | APPEARANCE | Clear | | [facility] | | | | [...] + + + + | KETONES | 5.0 (A) | Negative mg/dL | [facility] | [...] + + + + | SPECIFIC | 1.028Comment: Specific | 1.005 - 1.030 | [facility] | | | GRAVITY | Cresco performed by | | LABORATORY | | | | refractometry | | SERVICES, | | | | | | CORE | | + + + + + + + + | Specimen | + + | Urine - Urine | | specimen collection, | | clean catch | | (procedure) | + + + + + + + | Performing | Address | City/State/Zipcode | Phone Number | | Organization | | | | + + + + + | [facility] | [address] | [place] [address] | | | SERVICES, CORE | [address] | | | + + + + + ANTIBODY SCREEN (07/08/2019 12:45 AM PST) + + + + + [...] [facility] | [address] | [place] [address] | | | SERVICES, | [address] | | | | TRANSFUSION MEDICINE | | | | + + + + + ABO & RH TYPE (07/08/2019 12:45 AM PST) + + + + + [...] + + | [facility] | [address] | [place] [address] | | | SERVICES, | [address] | | | | TRANSFUSION MEDICINE | | | | + + + + + PHOSPHORUS, PLASMA (07/08/2019 12:01 AM PST) + +-------+ + + + [...] | + + + + + | [facility] | [address] | [place] [address] | | | MENG, LUZMARIA | [address] | | | + + + + + RBC MORPHOLOGY (07/08/2019 12:01 AM PST) + + + + + [...] [facility] | [address] | [place] [address] | | | SERVICES, CORE | [address] | | | + + + + + MANUAL DIFFERENTIAL (07/08/2019 12:01 AM PST) + + + + + + | Component | Value | Ref Range | Performed | Pathologist | | | | | At | Signature | + + + + + + | NEUTROPHIL | 91.0 (H) | 50.0 - 70.0 % | [facility] | | | % | | | LABORATORY | | | | | | SERVICES, | | | | | | CORE | | + + + + + + | LYMPHOCYTE | 6.0 (L) | 18.0 - 42.0 % | [facility] | | | % | | | LABORATORY | | | | | | SERVICES, | | | | | | CORE | | + + + + + + | MONOCYTE % | 1.0 (L) | 3.5 - 9.0 % | [facility] | | | | | | LABORATORY | | | | | | SERVICES, | | | | | | CORE | | + + + + + + | EOSINOPHIL | 1.0 | 1.0 - 3.0 % [...] + + + + | IG% | 1.0 | 0.0 - 1.0 % | [facility] | | | | | | LABORATORY | | | | | | SERVICES, | | | | | | CORE | | + + + + + + | NEUTROPHIL | 3.66 | 1.80 - 7.70 | [facility] | | | # | | K/cu mm | LABORATORY | | | | | | SERVICES, | | | | | | CORE | | + + + + + + | LYMPHOCYTE | 0.24 (L) | 1.00 - 4.80 | [facility] | | | # | | K/cu mm | LABORATORY | | | | | | SERVICES, | | | | | | CORE | | + + + + + + | MONOCYTE # | 0.04 (L) | 0.10 - 0.90 | [facility] | | | | | K/cu mm | LABORATORY | | | | | | SERVICES, | | | | | | CORE | | + + + + + + | EOSINOPHIL | 0.04 | 0.00 - 0.50 | [...] included in the IG count. | SERVICES, CORE | | Bands are included in the neutrophil count. | | + + + + + + + + | Performing | Address | City/State/Zipcode | Phone Number | | Organization | | | | + + + + + | [facility] | [address] | [place] [address] | | | SERVICES, LUZMARIA | [address] | | | + + + + + CBC AND AUTO DIFF (07/08/2019 12:01 AM PST) + + + + + + | Component | Value | Ref Range | Performed | Pathologist | | | | | At | Signature | + + + + + + | WHITE CELL | 4.02 | 3.50 - 10.80 | [facility] | | | COUNT | | K/cu mm | LABORATORY | | | | | | SERVICES, | | | | | | CORE | | + + + + + + | RED CELL | 2.54 (L) | 4.00 - 5.20 | [facility] | | | COUNT | | M/cu mm | LABORATORY | | | | | | SERVICES, | | | | | | CORE | | + + + + + + | HEMOGLOBIN | 7.1 (L) | 12.0 - 16.0 | [facility] | | | | | g/dL | LABORATORY | | | | | | SERVICES, | | | | | | CORE | | + + + + + + | HEMATOCRIT | 23.1 (L) | 36.0 - 46.0 % | [facility] | | | | | | LABORATORY | | | | | | SERVICES, | | | | | | CORE | | + + + + + + | MCV | 90.9 | 80.0 - 100.0 fL | [facility] | | | | | | LABORATORY | | | | | | SERVICES, | | | | | | CORE | | + + + + + + | MCHC | 30.7 (L) | 32.0 - 36.0 | [facility] | | | | | g/dL | LABORATORY | | | | | | SERVICES, | | | | | | CORE | | + + + + + + | RDW SD | 56.0 (H) | 35.1 - 46.3 fL | [facility] | | | | | | LABORATORY | | | | | | SERVICES, | | | | | | CORE | | + + + + + + | PLATELET | 198Comment: | 150 - 400 K/cu | [facility] [...] | + + + + + | [facility] | [address] | [place] [address] | | | SERVICES, CORE | [address] | | | + + + + + MAGNESIUM, PLASMA (07/08/2019 12:01 AM PST) + +---------+ + + + | Component | Value | Ref Range | Performed | Pathologist | | | | | At | Signature | + +---------+ + + + | MAGNESIUM,P | 2.7 (H) | 1.6 - 2.6 mg/dL | [facility] [...] + | [facility] | [address] | [place] [address] | | | SERVICES, CORE | [address] | | | + + + + + COMPLETE METABOLIC SET (NA,K,CL,CO2,BUN,CREAT,GLUC,CA,AST,ALT,BILI TOTAL,ALK PHOS,ALB,PROT TOTAL) (07/08/2019 12:01 AM PST) + + + + + + | Component | Value | Ref Range | Performed | Pathologist | | | | | At | Signature | + + + + + + | GLUCOSE, | 137 (H) | 70 - 99 mg/dL | [...] + + + + | CREATININE | 0.55 (L) | 0.60 - 1.10 | [facility] | | | PLASMA | | mg/dL | LABORATORY | | | (LAB) | | | SERVICES, | | | | | | CORE | | + + + + + + | EGFR | >60 | >60 mL/min | [facility] | | | - | | | LABORATORY | | | BRAZILIAN | | | SERVICES, | | | [...] + + + + | POTASSIUM, | 4.1 | 3.4 - 5.0 | [facility] | | | PLASMA | | mmol/L | LABORATORY | | | (LAB) | | | SERVICES, | | | | | | CORE | | + + + + + + | CHLORIDE, | 109 (H) | 97 - 108 mmol/L | [...] + + + + | CALCIUM, | 8.2 (L) | 8.6 - 10.2 | [facility] | | | PLASMA | | mg/dL | LABORATORY | | | (LAB) | | | SERVICES, | | | | | | CORE | | + + + + + + | CALCIUM(ALB | 9.1 [...] + + + + | ALBUMIN, | 2.9 (L) | 3.5 - 4.7 g/dL | [facility] | | | PLASMA | | | LABORATORY | | | (LAB) | | | SERVICES, | | | | | | CORE | | + + + + + + | ALK PHOS | 96 | 42 - 98 U/L | [facility] | | | | | | LABORATORY | | | | | | SERVICES, | | | | | | CORE | | + + + + + + | AST(SGOT) | 8 | <=41 U/L | [facility] | | | | | | LABORATORY | | | | | | SERVICES, | | | | | | CORE | | + + + + + + | ALT (SGPT) | <6 | <=60 U/L | [facility] | | [...] + + + + | ANION | 8 | 4 - 11 mmol/L [...] + + + + | BUN/CREATIN | 9 | 8 - 25 | [facility] | | | INE RATIO | | | LABORATORY | | | | | | SERVICES, | | | | | | CORE | | + + + + + + | GLOBULIN | 2.8 | 2.3 - 3.5 gm/dL | [facility] | | | LVL | | | LABORATORY | | | | | | SERVICES, | | | | | | CORE | | + + + + + + | ALBUMIN/BURTON | 1.0 [...] MDRD equation recommended by the National | [facility] | | Kidney Disease [...] not valid in the following situations: | | | - Patients under 18 years [...] | + + + + + | [facility] | [address] [facility] [facility] [facility] | [place] [address] | | | SERVICES, LUZMARIA | [address] | | | + + + + + 12 LEAD ECG (07/07/2019 11:33 PM PST) + + + + + + | Component | Value | Ref Range | Performed | Pathologist | | | | | At | Signature | + + + + + + | VENTRICULAR | 58 | bpm | [facility] | | | RATE | | | OF | | | | | | CARDIOLOGY | | + + + + + + | ATRIAL RATE | 59 | ms | [facility] | | | | | | OF | | | | | | CARDIOLOGY | | + + + + + + | P-R | 124 | ms | [facility] | | | INTERVAL | | | OF | | | | | | CARDIOLOGY | | + + + + + + | P AXIS | 47 | deg | [facility] | | | | | | OF | | | | | | CARDIOLOGY | | + + + + + + | QRS | 90 | ms | [facility] | | | DURATION | | | OF | | | | | | CARDIOLOGY | | + + + + + + | QT | 450 | ms | [facility] | | | | | | OF | | | | | | CARDIOLOGY | | + + + + + + | QTC-GUILLAUME | 444 | ms | [facility] | | | | | | OF | | | | | | CARDIOLOGY | | + + + + + + | R AXIS | -21 | deg | [facility] | | | | | | OF | | | | | | CARDIOLOGY | | + + + + + + | T AXIS | 30 | deg | [facility] | | | | | | OF | | | | | | CARDIOLOGY | | + + + + + + | ECG | Sinus bradycardia- | | [facility] | | | IMPRESSION | OTHERWISE NORMAL ECG - | | OF | | | | | | CARDIOLOGY | | + + + + + + | ECG | Electronically signed | | [facility] | | | IMPRESSION | by: KATHRINE BEAUCHAMP | | OF | | | | 07-08-2019 18:19:23 | | CARDIOLOGY | | + + [...] + + | [facility] | [address] | [place], [place] | | | CARDIOLOGY | [address] | [id number] | | + + + + + CT ABDOMEN AND PELVIS W IV CONTRAST (07/07/2019 9:40 PM PST) + + | Specimen | + + | | + + + + + | Narrative | Performed At | + + + | EXAM: CT of the abdomen and pelvis WITH intravenous contrast. 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 COMPARISON: CT chest 01/13/2019 TECHNIQUE: | | | CT of the abdomen and pelvis with non-ionic iodinated intravenous | | | contrast. Coronal and sagittal reformats were generated and reviewed. | | | FINDINGS: LOWER THORAX: Central venous catheter terminates at the | | | superior cavoatrial junction. The heart is normal in size without | | | pericardial effusion. There is a wedge-shaped consolidative opacity | | | with surrounding groundglass within the periphery of the right lower | | | lobe as well as additional scattered groundglass opacities within the | | | right middle and lower lobes. LIVER: There is mild diffuse hepatic | | | steatosis. Hypodense lesion within the left lobe of the liver is | | | unchanged, likely benign hepatic cyst. BILIARY: The common bile duct | | | is mildly prominent measuring up to 9 mm in diameter but tapers | | | appropriately at the ampulla. There is no intrahepatic biliary | | | dilatation. The gallbladder is unremarkable. PANCREAS: Unremarkable. | | | SPLEEN: Unremarkable. ADRENALS: Unremarkable. KIDNEYS/URETERS: | | | Unremarkable. PELVIC ORGANS/BLADDER: Unremarkable. GI TRACT: No | | | evidence of bowel obstruction. There are a few scattered colonic | | | diverticuli without evidence of diverticulitis. A normal-appearing | | | appendix is present within the right lower quadrant. Mild diffuse | | | pericolonic stranding most evident in the right and transverse colon, | | | which can be seen in the setting of typhlitis or | | | inflammatory/infectious colitis. PERITONEUM: Trace free fluid is | | | present within the pelvis. No pneumoperitoneum. LYMPH NODES: No | | | lymphadenopathy. VESSELS: Unremarkable. BONES AND SOFT TISSUES: | | | Unremarkable. IMPRESSION: Mild diffuse pericolonic stranding | | | and colonic thickening most evident in the right and transverse colon, | | | which can be seen in the setting of typhlitis or | | | inflammatory/infectious colitis versus colonic GVHD. Peripheral | | | consolidative opacity within the right lower lobe with additional | | | scattered right lower and middle lobe groundglass opacities is favored | | | to represent pneumonia. However, given the, the shape and | | | distribution of the right lower lobe opacity, pulmonary infarct could | | | have a similar appearance in the appropriate clinical setting. | | | Trace pelvic fluid. Preliminary results were discussed with | | | Elli on 07/07/2019 10:07 PM by Brigido Roper MD. Final | | | results called to LACY Rutledge, at 7:50 AM on 07/08/2019. I | | | have personally reviewed the images and, if necessary, edited the | | | report. I agree with the report as now presented. Final | | | signature: Angle Henderson MD 07/08/2019 7:59 AM Preliminary: | | | Brigido Roper MD Dictation initiated: Brigido Roper MD | | | 07/07/2019 9:41 PM | | + + + + + | Procedure Note | + + | Service Account, [facility] Res In Interface - 07/08/2019 8:00 AM PST EXAM: CT of the | | abdomen and pelvis WITH intravenous contrast. 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 COMPARISON: CT chest 01/13/2019 TECHNIQUE: CT of the abdomen and | | pelvis with non-ionic iodinated intravenous contrast. Coronal and sagittal reformats | | were generated and reviewed. FINDINGS:LOWER THORAX: Central venous catheter terminates | | at the superior cavoatrial junction. The heart is normal in size without pericardial | | effusion. There is a wedge-shaped consolidative opacity with surrounding groundglass | | within the periphery of the right lower lobe as well as additional scattered groundglass | | opacities within the right middle and lower lobes. LIVER: There is mild diffuse hepatic | | steatosis. Hypodense lesion within the left lobe of the liver is unchanged, likely | | benign hepatic cyst.BILIARY: The common bile duct is mildly prominent measuring up to 9 | | mm in diameter but tapers appropriately at the ampulla. There is no intrahepatic biliary | | dilatation. The gallbladder is unremarkable.PANCREAS: Unremarkable. SPLEEN: | | Unremarkable.ADRENALS: Unremarkable.KIDNEYS/URETERS: Unremarkable.PELVIC ORGANS/BLADDER: | | Unremarkable. GI TRACT: No evidence of bowel obstruction. There are a few scattered | | colonic diverticuli without evidence of diverticulitis. A normal-appearing appendix is | | present within the right lower quadrant. Mild diffuse pericolonic stranding most evident | | in the right and transverse colon, which can be seen in the setting of typhlitis or | | inflammatory/infectious colitis.PERITONEUM: Trace free fluid is present within the | | pelvis. No pneumoperitoneum. LYMPH NODES: No lymphadenopathy.VESSELS: Unremarkable. | | BONES AND SOFT TISSUES: Unremarkable. IMPRESSION: Mild diffuse pericolonic stranding | | and colonic thickening most evident in the right and transverse colon, which can be seen | | in the setting of typhlitis or inflammatory/infectious colitis versus colonic GVHD. | | Peripheral consolidative opacity within the right lower lobe with additional scattered | | right lower and middle lobe groundglass opacities is favored to represent pneumonia. | | However, given the, the shape and distribution of the right lower lobe opacity, | | pulmonary infarct could have a similar appearance in the appropriate clinical setting. | | Trace pelvic fluid. Preliminary results were discussed with Dr. Calloway on | | 07/07/2019 10:07 PM by Brigido Roper MD. Final results called to LACY Rutledge, at | | 7:50 AM on 07/08/2019. I have personally reviewed the images and, if necessary, edited | | the report. I agree with the report as now presented. Final signature: Angle uMñoz | | MD Beatriz 07/08/2019 7:59 AM Preliminary: Brigido Roper MD Dictation initiated: | | Brigido Roper MD 07/07/2019 9:41 PM | |Peripheral consolidative opacity within the right lower lobe with additional scattered righ t lower and middle lobe groundglass opacities is favored to represent pneumonia. However, gi ronald the, the shape and | |distribution of the right lower lobe opacity, pulmonary infarct could have a similar appear ance in the appropriate clinical setting. | | | |Trace pelvic fluid. | | | |Preliminary results were discussed with Dr. Calloway on 07/07/2019 10:07 PM by Brigido lopez MD. | | | |Final results called to LACY Rutledge, at 7:50 AM on 07/08/2019. | | | |I have personally reviewed the images and, if necessary, edited the report. I agree with th e report as now presented. | | | |Final signature: Angle Hednerson MD 07/08/2019 7:59 AM | |Preliminary: Brigido Roper MD | |Dictation initiated: Brigido Roper MD 07/07/2019 9:41 PM | + + + +---------+ + + | Performing | Address | City/State/Zipcode | Phone Number | | Organization | | | | + +---------+ + + | [facility] | | | | | VOICE RECOGNITION 2 | | | | + +---------+ + + LACTATE (07/07/2019 5:29 PM PST) + +-------+ + + + | Component | Value | Ref Range | Performed | Pathologist | | | | | At | Signature | + +-------+ + + + | LACTATE | 0.8 | mmol/L | [facility] | | | | | | LABORATORY | | | | | | SERVICES, | | | | | | CORE | | + +-------+ + + + + + | Specimen | + + | Blood - Blood | | (substance) | + + + + + | Narrative | Performed At | + + + | Reference Range: Venous blood: 0.5 - 2.2 mmol/L Critical >= | [facility] | | 4.0 mmol/L Arterial blood: 0.5 - 1.6 mmol/L Critical >= 4.0 | LABORATORY | | mmol/L | SERVICES, CORE | + + + + + + + + | Performing | Address | City/State/Zipcode | Phone Number | | Organization | | | | + + + + + | [facility] | [address] | [place] [address] | | | SERVICES, CORE | [address] | | | + + + + + RBC MORPHOLOGY (07/07/2019 5:25 PM PST) + + + + + [...] + + + + | MACROCYTOSI | 2+(25-100cells/HPF) | | [facility] | | | S | | | LABORATORY | | | | | | SERVICES, | | | | | | CORE | | + + + + + + | POLYCHROMAS | 2+(3-10cells/HPF) | | [facility] | | | IA [...] + + + | TEAR DROP | 2+(3-10cells/HPF) | | [facility] | | | CELLS | | | LABORATORY | | | | | | SERVICES, | | | | | | CORE | | + + + + + + | BITE CELLS | 1+ (<1-2cells/HPF) | | [facility] | | | | [...] | + + + + + | [facility] | [address] | [place] [address] | | | SERVICES, CORE | [address] | | | + + + + + MAGNESIUM, PLASMA (07/07/2019 5:25 PM PST) + +---------+ + + + | Component | Value | Ref Range | Performed | Pathologist | | | | | At | Signature | + +---------+ + + + | MAGNESIUM,P | 3.7 (H) | 1.6 - 2.6 mg/dL | [facility] [...] | + + + + + | [facility] | [address] | [place] [address] | | | SERVICES, CORE | [address] | | | + + + + + CBC AND AUTO DIFF (07/07/2019 5:25 PM PST) + + + + + + | Component | Value | Ref Range | Performed | Pathologist | | | | | At | Signature | + + + + + + | WHITE CELL | 4.41 | 3.50 - 10.80 | [facility] | | | COUNT | | K/cu mm | LABORATORY | | | | | | SERVICES, | | | | | | CORE | | + + + + + + | RED CELL | 2.61 (L) | 4.00 - 5.20 | [facility] | | | COUNT | | M/cu mm | LABORATORY | | | | | | SERVICES, | | | | | | CORE | | + + + + + + | HEMOGLOBIN | 7.2 (L) | 12.0 - 16.0 | [facility] | | | | | g/dL | LABORATORY | | | | | | SERVICES, | | | | | | CORE | | + + + + + + | HEMATOCRIT | 23.9 (L) | 36.0 - 46.0 % | [facility] | | | | | | LABORATORY | | | | | | SERVICES, | | | | | | CORE | | + + + + + + | MCV | 91.6 | 80.0 - 100.0 fL | [facility] [...] + + + | RDW SD | 56.3 (H) | 35.1 - 46.3 fL | [facility] | | | | | | LABORATORY | | | | | | SERVICES, | | | | | | CORE | | + + + + + + | PLATELET | 123 (L)Comment: Few | 150 - 400 K/cu | [facility] | | | COUNT | platelet clumps present. | mm | LABORATORY | | | | Giant platelets | | SERVICES, | | | | present. Macroplatelets | | CORE | | | | [...] + + + + | NEUTROPHIL | 80.3 (H) | 50.0 - 70.0 % | [facility] | | | % | | | LABORATORY | | | | | | SERVICES, | | | | | | CORE | | + + + + + + | LYMPHOCYTE | 13.2 (L) | 18.0 - 42.0 % | [facility] | | | % | | | LABORATORY | | | | | | SERVICES, | | | | | | CORE | | + + + + + + | MONOCYTE % | 2.7 (L) | 3.5 - 9.0 % | [...] + + + + | NEUTROPHIL | 3.54 | 1.80 - 7.70 | [facility] | [...] + + + | MONOCYTE # | 0.12 | 0.10 - 0.90 | [facility] | [...] + + + + | IG# | 0.08 | 0.00 - 0.10 | [facility] | [...] | + + + + + | [facility] | [address] [facility] [facility] | [place] [address] | | | SERVICES, LUZMARIA | [address] | | | + + + + + COMPLETE METABOLIC SET (NA,K,CL,CO2,BUN,CREAT,GLUC,CA,AST,ALT,BILI TOTAL,ALK PHOS,ALB,PROT TOTAL) (07/07/2019 5:25 PM PST) + +---------+ + + + | Component | Value | Ref Range | Performed | Pathologist | | | | | At | Signature | + +---------+ + + + | GLUCOSE, | 184 (H) | 70 - 99 mg/dL | [...] +---------+ + + + | CREATININE | 0.64 | 0.60 - 1.10 | [facility] | | | PLASMA | | mg/dL | LABORATORY | | | (LAB) | | | SERVICES, | | | | | | CORE | | + +---------+ + + + | EGFR | >60 | >60 mL/min | [facility] | | | - | | | LABORATORY | | | BRAZILIAN | | | SERVICES, | | | | | | CORE | | + +---------+ + + + | EGFR NON | >60 | >60 mL/min | [facility] | | | -RENAE | | | LABORATORY | | | RICAN | | | SERVICES, | | | | | | CORE | | + +---------+ + + + | SODIUM, | 138 | 136 - 145 | [facility] | | | PLASMA | | mmol/L | LABORATORY | | | (LAB) | | | SERVICES, | | | | | | CORE | | + +---------+ + + + | POTASSIUM, | 4.1 | 3.4 - 5.0 | [facility] | | | PLASMA | | mmol/L | LABORATORY | | | (LAB) | | | SERVICES, | | | | | | CORE | | + +---------+ + + + | CHLORIDE, | 110 (H) | 97 - 108 mmol/L | [...] +---------+ + + + | CALCIUM, | 8.0 (L) | 8.6 - 10.2 | [facility] | | | PLASMA | | mg/dL | LABORATORY | | | (LAB) | | | SERVICES, | | | | | | CORE | | + +---------+ + + + | CALCIUM(ALB | 8.9 [...] +---------+ + + + | TOTAL | 5.7 (L) | 6.4 - 8.2 g/dL | [facility] | | | PROTEIN, | | | LABORATORY | | | PLASMA | | | SERVICES, | | | (LAB) | | | CORE | | + +---------+ + + + | ALBUMIN, | 2.9 (L) | 3.5 - 4.7 g/dL | [...] +---------+ + + + | AST(SGOT) | 7 | <=41 U/L | [facility] | | | | | | LABORATORY | | | | | | SERVICES, | | | | | | CORE | | + +---------+ + + + | ALT (SGPT) | 7 | <=60 U/L | [facility] | | [...] +---------+ + + + | BUN/CREATIN | 11 | 8 - 25 | [facility] | [...] not valid in the following situations: | | | - Patients under 18 years [...] | + + + + + | [facility] | [address] | [place] [address] | | | SERVICES, CORE | [address] | | | + + + + + ED INFORMATION EXCHANGE (07/07/2019 4:52 PM PST) + + | Specimen | + + | | + + + + + | Narrative | Performed At | + + + | COLLECTIVE?NOTIFICATION?07/07/2019 16:51?ANALY CAMARILLO?MRN: | COLLECTIVE | | [id number] Criteria Met History of Sepsis Dx Security and | MEDICAL | | Safety No recent Security Events currently on file ED Care | TECHNOLOGIES | | Guidelines There are currently no ED Care Guidelines for this | | | patient. Please check your facility's medical records system. | | | Flags History of Sepsis - Patient has received a diagnosis of | | | Sepsis from an acute or post-acute setting. Apply appropriate | | | clinical planning practices; to learn more visit | | | [email or web address] Attributed By: [employer] / | | | Attributed On: 06/30/2019 Prescription Drug Report (12 Mo.) | | | Rx Details Fill Date Drug Description Qty. Prescriber CS MED | | | 2019-05-31 TRAMADOL HCL 50 MG TABLET 28 [facility] 4 20 Rx | | | Summary Metric Count CS II-V Rx 1 CS-II Rx 0 Quantity Dispensed | | | 28 [facility] 1 Benzos 0 Opioids | | | 1 Long Acting Opioids 0 E.D. Visit Count (12 mo.) | | | Facility Visits [facility] 1 [facility] . | | | [facility] 1 Total 2 Note: Visits indicate total known | | | visits. Recent Emergency Department Visit Summary Date | | | Facility City State Type Diagnoses or Chief Complaint Jul 07, 2019 | | | [facility] [place] Emergency | | | 10,800. Referral Jan 10, 2019 [facility] [place] [facility]. [place] | | | Emergency Chief Complaint: RASH Recent Inpatient Visit | | | Summary Date Facility City State Type Diagnoses or Chief Complaint | | | Apr 15, 2019 [facility] [place] Hematology | | | 10,151. MDS 18,400. Myelodysplastic syndrome, | | | unspecified Jan 14, 2019 [facility] | | | [place] Hematology 10,151. INFECTION 18,400. | | | Myelodysplastic syndrome, unspecified Jan 10, 2019 [facility] | | | [place]. [place] Medical Surgical Sepsis, unspecified | | | organism Sepsis, u Allergy status to sulfonamides status | | | Hypo-osmolality and hyponatremia Cellulitis of chest wall | | | Respiratory failure, unspecified with hypoxia Neutropenia, | | | unspecified Other director long term care (current) drug therapy | | | Refractory anemia, unspecified Other specified sepsis Other spe | | | [place] with other complications Care Team There is | | | not a care team on record at this time. [facility] This | | | patient has registered at the [facility] | | | Emergency Department For more information visit: | | | [email or web address] | | | [id number] c PLEASE NOTE: 1. Any care recommendations and | | | other clinical information are provided as guidelines or for | | | historical purposes only, and providers should exercise their own | | | clinical judgment when providing care. 2. You may only use this | | | information for purposes of treatment, payment or health care | | | operations activities, and subject to the limitations of applicable | | | Collective Policies. 3. You should consult directly with the | | | organization that provided a care guideline or other clinical | | | history with any questions about additional information or accuracy | | | or completeness of information provided. ? 2020 [employer] | | | [employer] - [email or web address].com | | + + + + + | Procedure Note | + + | Service Account, Rtf Results Inbound - 07/07/2019 4:54 PM PST Formatting of this | | note might be different from the original.[facility]?NOTIFICATION?07/07/2019 | | 16:51?KATELYNANALY FERRO? Met History of Sepsis DxSecurity and | | SafetyNo recent Security Events currently on fileED Care GuidelinesThere are currently | | no ED Care Guidelines for this patient. Please check your facility's medical records | | system.Flags History of Sepsis - Patient has received a diagnosis of Sepsis from an | | acute or post-acute setting. Apply appropriate clinical planning practices; to learn | | more visit [email or web address] / Attributed By: [facility] / Attributed | | On: 06/30/2019 Prescription Drug Report (12 Mo.)Rx DetailsFill Date Drug Description | | Qty. Prescriber CS MED 2019-05-31 TRAMADOL HCL 50 MG TABLET 28 [place] 4 20 Rx | | SummaryMetric Count CS II-V Rx 1 CS-II Rx 0 Quantity Dispensed 28 Unique Prescribers 1 | | Unique Pharmacies 1 Benzos 0 Opioids 1 Long Acting Opioids 0 E.D. Visit Count (12 | | mo.)Facility Visits [facility] 1 [facility] 1 | | Total 2 Note: Visits indicate total known visits. Recent Emergency Department Visit | | SummaryDate Facility [facility] State Type Diagnoses or Chief Complaint Jul 07, 2019 [place] | | [facility] [place] Emergency 10,800. Referral Jan 10, 2019 [facility] | | [facility]. [place] Emergency Chief Complaint: RASH Recent Inpatient Visit | | SummaryDate Facility [facility] State Type Diagnoses or Chief Complaint Apr 15, 2019 [place] | | [facility] [place] Hematology 10,151. MDS 18,400. | | Myelodysplastic syndrome, unspecified Jan 14, 2019 [facility] | | [place] Hematology 10,151. INFECTION 18,400. Myelodysplastic syndrome, | | unspecified Jan 10, 2019 [facility]. [facility]. [place] Medical Surgical Sepsis, | | unspecified organism Sepsis, u Allergy status to sulfonamides status | | Hypo-osmolality and hyponatremia Cellulitis of chest wall Respiratory failure, | | unspecified with hypoxia Neutropenia, unspecified Other halfway (current) drug | | therapy Refractory anemia, unspecified Other specified sepsis Other spe Zoster | | with other complications Care TeamThere is not a care team on record at this time. | | [facility] | | Emergency Department For more information visit: | | [email or web address] PLEASE | | NOTE: 1. Any care recommendations and other clinical information are provided as | | guidelines or for historical purposes only, and providers should exercise their own | | clinical judgment when providing care. 2. You may only use this information for | | purposes of treatment, payment or health care operations activities, and subject to the | | limitations of applicable [employer]. 3. You should consult directly with | | the organization that provided a care guideline or other clinical history with any | | questions about additional information or accuracy or completeness of information | | provided.? 2019 [facility]. - [email or web address] | |Facility Visits | |[facility] 1 | |[facility] 1 | |Total 2 | |Note: Visits indicate total known visits. | | | |Recent Emergency Department Visit Summary | |Date Facility [facility] State Type Diagnoses or Chief Complaint | |Jul 07, 2019 [facility] [place] Emergency | | 10,800. Referral | | | |Jan 10, 2019 [facility]. [place] Emergency Chief Complaint: RASH | | | | | |Recent Inpatient Visit Summary | |Date Facility [facility] Type Diagnoses or Chief Complaint | |Apr 15, 2019 [facility] [place] Hematology | | 10,151. MDS | | 18,400. Myelodysplastic syndrome, unspecified | | | |Jan 14, 2019 [facility] [place] Hematology | | 10,151. INFECTION | | 18,400. Myelodysplastic syndrome, unspecified | | | |Jan 10, 2019 [facility]. [place] Medical Surgical | | Sepsis, unspecified organism Sepsis, u | | Allergy status to sulfonamides status | | Hypo-osmolality and hyponatremia | | Cellulitis of chest wall | | Respiratory failure, unspecified with hypoxia | | Neutropenia, unspecified | | Other halfway (current) drug therapy | | Refractory anemia, unspecified | | Other specified sepsis Other spe | | Zoster with other complications | | | | | | | |Care Team | |There is not a care team on record at this time. | |[employer] Portal | |This patient has registered at the [facility] Emergency Departmen t | |For more information visit: [email or web address] | |PLEASE NOTE: | | 1. Any care recommendations and other clinical information are provided as guidelines or for historical purposes only, and providers should exercise their own clinical judgment whe n providing care. | | 2. You may only use this information for purposes of treatment, payment or health care o perations activities, and subject to the limitations of applicable [employer] Policies. | | 3. You should consult directly with the organization that provided a care guideline or o ther clinical history with any questions about additional information or accuracy or complet eness of information provided. | | | |? 2019 [facility]. - [email or web address] | + + + + + + + | Performing | Address | City/State/Zipcode | Phone Number | | Organization | | | | + + + + + | [facility] | [address] | [place], [place] | [phone] | | [employer] | [address] | [phone] | | + + + + + documented in this encounter Visit Diagnoses + + | Diagnosis | + + | Generalized abdominal pain - Primary Abdominal pain, generalized | + + | Diarrhea, unspecified type | + + | Immunocompromised state due to drug therapy | + + | Lung infiltrate on CT | + + | MDS (myelodysplastic syndrome) (HCC) Myelodysplastic syndrome, unspecified | + + | S/P cord blood transplantation Other specified organ or tissue replaced by transplant | + + | 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, | | unspecified site | + + | Skin rash Rash and other nonspecific skin eruption | + + | Hypoalbuminemia due to protein-calorie malnutrition (HCC) | + + | Anemia Anemia, unspecified | + + | Hyperglycemia Other abnormal glucose | + + | Hypokalemia Hypopotassemia | + + documented in this encounter Administered Medications + +--------+ +--------+------+------+ | Medication Order | MAR | Action | Dose | Rate | Site | | | Action | Date | | | | + +--------+ +--------+------+------+ | ciprofloxacin HCl (CIPRO) | Given | 07/12/19 | 500 mg | | | | tablet 500 mg 500 mg, oral, | | 20 2:04 | | | | | TWICE DAILY, First dose on Thu | | PM PST | | | | | 07/12/19 at 1330, Until | | | | | | | Discontinued | | | | | | + +--------+ +--------+------+------+ +---+---+ | | | +---+---+ + +-------+ +--------+---+---+ | dapsone tablet 100 mg 100 mg, | Given | 07/09/19 | 100 mg | | | | oral, DAILY, First dose on Thu | | 20 9:19 | | | | | 07/07/19 at 2300, Until | | AM PST | | | | | Discontinued | | | | | | + +-------+ +--------+---+---+ +-------+ +--------+---+---+ | Given | 07/08/19 | 100 mg | | | | | 20 12:39 | | | | | | AM PST | | | | +-------+ +--------+---+---+ +---+---+ | | | +---+---+ + +-------+ +-------+---+---+ | escitalopram oxalate (LEXAPRO) | Given | 07/12/19 | 20 mg | | | | tablet 20 mg 20 mg, oral, DAILY, | | 20 10:03 | | | | | First dose on Cheryl 07/07/19 at | | AM PST | | | | | 2300, Until Discontinued | | | | | | + +-------+ +-------+---+---+ +-------+ +-------+---+---+ | Given | 07/11/19 | 20 mg | | | | | 20 8:56 | | | | | | AM PST | | | | +-------+ +-------+---+---+ | Given | 07/10/19 | 20 mg | | | | | 20 10:05 | | | | | | AM PST | | | | +-------+ +-------+---+---+ +---+---+ | | | +---+---+ + +-------+ +-------+---+---+ | famotidine (PEPCID) tablet 20 | Given | 07/08/19 | 20 mg | | | | mg 20 mg, oral, AT BEDTIME, | | 20 12:39 | | | | | First dose on Thu07/07/19 at 2330, | | AM PST | | | | | Until Discontinued | | | | | | + +-------+ +-------+---+---+ +---+---+ | | | +---+---+ + +-------+ +--------+---+---+ | fentaNYL (SUBLIMAZE) injection | Given | 07/08/19 | 25 mcg | | | | intravenous, INTRAPROCEDURE PRN, | | 20 4:52 | | | | | Starting Thu07/08/19 at 1652, | | PM PST | | | | | Until Thu07/08/19 at 1652 | | | | | | + +-------+ +--------+---+---+ +---+---+ | | | +---+---+ + +-------+ +--------+---+---+ | fentaNYL (SUBLIMAZE) injection | Given | 07/08/19 | 25 mcg | | | | intravenous, INTRAPROCEDURE PRN, | | 20 4:56 | | | | | Starting Thu07/08/19 at 1656, | | PM PST | | | | | Until Thu07/08/19 at 1656 | | | | | | + +-------+ +--------+---+---+ +---+---+ | | | +---+---+ + +-------+ +--------+---+---+ | fentaNYL (SUBLIMAZE) injection | Given | 07/08/19 | 25 mcg | | | | intravenous, INTRAPROCEDURE PRN, | | 20 4:54 | | | | | Starting 07/08/19 at 1654, | | PM PST | | | | | Until Thu07/08/19 at 1654 | | | | | | + +-------+ +--------+---+---+ +---+---+ | | | +---+---+ + +-------+ +--------+---+---+ | fentaNYL (SUBLIMAZE) injection | Given | 07/08/19 | 25 mcg | | | | intravenous, INTRAPROCEDURE PRN, | | 20 4:58 | | | | | Starting Thu07/08/19 at 1658, | | PM PST | | | | | Until Thu07/08/19 at 1658 | | | | | | + +-------+ +--------+---+---+ +---+---+ | | | +---+---+ + +-------+ +--------+---+---+ | fentaNYL (SUBLIMAZE) injection | Given | 07/11/19 | 25 mcg | | | | intravenous, INTRAPROCEDURE PRN, | | 20 10:18 | | | | | Starting Thu07/11/19 at 1018, | | AM PST | | | | | Until Thu07/11/19 at 1018 | | | | | | + +-------+ +--------+---+---+ +---+---+ | | | +---+---+ + +-------+ +--------+---+---+ | fentaNYL (SUBLIMAZE) injection | Given | 07/11/19 | 25 mcg | | | | intravenous, INTRAPROCEDURE PRN, | | 20 10:20 | | | | | Starting Thu07/11/19 at 1020, | | AM PST | | | | | Until Thu07/11/19 at 1020 | | | | | | + +-------+ +--------+---+---+ +---+---+ | | | +---+---+ + +-------+ +--------+---+---+ | fentaNYL (SUBLIMAZE) injection | Given | 07/11/19 | 25 mcg | | | | intravenous, INTRAPROCEDURE PRN, | | 20 10:27 | | | | | Starting Thu07/11/19 at 1027, | | AM PST | | | | | Until Thu07/11/19 at 1027 | | | | | | + +-------+ +--------+---+---+ +---+---+ | | | +---+---+ + +-------+ +--------+---+---+ | fentaNYL (SUBLIMAZE) injection | Given | 07/11/19 | 25 mcg | | | | intravenous, INTRAPROCEDURE PRN, | | 20 10:41 | | | | | Starting Thu07/11/19 at 1041, | | AM PST | | | | | Until Thu07/11/19 at 1041 | | | | | | + +-------+ +--------+---+---+ +---+---+ | | | +---+---+ + +-------+ +--------+---+---+ | fentaNYL (SUBLIMAZE) injection | Given | 07/11/19 | 25 mcg | | | | intravenous, INTRAPROCEDURE PRN, | | 20 10:43 | | | | | Starting 07/11/19 at 1043, | | AM PST | | | | | Until 07/11/19 at 1043 | | | | | | + +-------+ +--------+---+---+ +---+---+ | | | +---+---+ + +---------+ +--------+---+---+ | iohexol (OMNIPAQUE) 350 mg | IV Push | 07/07/19 | 100 mL | | | | iodine/mL injection 100 mL 100 | | 20 9:35 | | | | | mL, intravenous, ONCE, 1 dose, | | PM PST | | | | | Cheryl 07/07/19 at 2245 | | | | | | + +---------+ +--------+---+---+ +---+---+ | | | +---+---+ + +-------+ +--------+---+---+ | letermovir (PREVYMIS) tablet | Given | 07/09/19 | 480 mg | | | | 480 mg 480 mg, oral, DAILY, | | 20 9:19 | | | | | First dose on Thu07/07/19 at 2300, | | AM PST | | | | | Until Discontinued | | | | | | + +-------+ +--------+---+---+ +-------+ +--------+---+---+ | Given | 07/08/19 | 480 mg | | | | | 20 12:39 | | | | | | AM PST | | | | +-------+ +--------+---+---+ +---+---+ | | | +---+---+ + +-------+ +------+---+---+ | lidocaine viscous (XYLOCAINE | Given | 07/08/19 | 8 mL | | | | VISCOUS) 2 % mucosal solution | | 20 4:50 | | | | | Mouth/Throat, INTRAPROCEDURE PRN, | | PM PST | | | | | Starting 07/08/19 at 1650, | | | | | | | Until 07/08/19 at 1650 | | | | | | + +-------+ +------+---+---+ +---+---+ | | | +---+---+ + +-------+ +------+---+---+ | loperamide (IMODIUM) capsule 2 | Given | 07/11/19 | 2 mg | | | | mg 2 mg, oral, EVERY 4 HOURS | | 20 9:12 | | | | | NEEDED, Starting 07/11/19 at | | PM PST | | | | | 1917, Until 07/12/19 at 2205, | | | | | | | diarrhea | | | | | | + +-------+ +------+---+---+ +---+---+ | | | +---+---+ + +---------+ +-----+---+---+ | magnesium sulfate in water IV | New Bag | 07/10/19 | 4 g | | | | (RTU) 4 g 4 g, intravenous, | | 20 10:18 | | | | | NEEDED, Starting Cheryl 07/07/19 at | | AM PST | | | | | 2256, Until 07/12/19 at 2205, | | | | | | | Mg level 1.3-1.6 mg/dL | | | | | | + +---------+ +-----+---+---+ +---+---+ | | | +---+---+ + +-------+ +-------+---+---+ | methylPREDNISolone sod succ | Given | 07/12/19 | 30 mg | | | | (SOLU-MEDROL) injection 30 mg 30 | | 20 5:51 | | | | | mg, intravenous, TWICE DAILY, | | AM PST | | | | | First dose (after last | | | | | | | modification) on 07/08/19 at | | | | | | | 0600, Until Discontinued | | | | | | + +-------+ +-------+---+---+ +-------+ +-------+---+---+ | Given | 07/11/19 | 30 mg | | | | | 20 6:08 | | | | | | PM PST | | | | +-------+ +-------+---+---+ | Given | 07/11/19 | 30 mg | | | | | 20 5:03 | | | | | | AM PST | | | | +-------+ +-------+---+---+ +---+---+ | | | +---+---+ + +-------+ +--------+---+---+ | metroNIDAZOLE (FLAGYL) tablet | Given | 07/12/19 | 500 mg | | | | 500 mg 500 mg, oral, THREE TIMES | | 20 2:04 | | | | | DAILY, First dose on Thu07/12/19 | | PM PST | | | | | at 1330, Until Discontinued | | | | | | + +-------+ +--------+---+---+ +---+---+ | | | +---+---+ + +-------+ +------+---+---+ | midazolam (PF) (VERSED) | Given | 07/08/19 | 1 mg | | | | injection INTRAPROCEDURE PRN, | | 20 4:52 | | | | | Starting 07/08/19 at 1652, | | PM PST | | | | | Until 07/08/19 at 1652 | | | | | | + +-------+ +------+---+---+ +---+---+ | | | +---+---+ + +-------+ +------+---+---+ | midazolam (PF) (VERSED) | Given | 07/08/19 | 1 mg | | | | injection INTRAPROCEDURE PRN, | | 20 4:56 | | | | | Starting Thu07/08/19 at 1656, | | PM PST | | | | | Until Thu07/08/19 at 1656 | | | | | | + +-------+ +------+---+---+ +---+---+ | | | +---+---+ + +-------+ +------+---+---+ | midazolam (PF) (VERSED) | Given | 07/08/19 | 1 mg | | | | injection INTRAPROCEDURE PRN, | | 20 4:54 | | | | | Starting Thu07/08/19 at 1654, | | PM PST | | | | | Until Thu07/08/19 at 1654 | | | | | | + +-------+ +------+---+---+ +---+---+ | | | +---+---+ + +-------+ +------+---+---+ | midazolam (PF) (VERSED) | Given | 07/08/19 | 1 mg | | | | injection INTRAPROCEDURE PRN, | | 20 4:58 | | | | | Starting Thu07/08/19 at 1658, | | PM PST | | | | | Until Thu07/08/19 at 1658 | | | | | | + +-------+ +------+---+---+ +---+---+ | | | +---+---+ + +-------+ +------+---+---+ | midazolam (PF) (VERSED) | Given | 07/11/19 | 1 mg | | | | injection INTRAPROCEDURE PRN, | | 20 10:18 | | | | | Starting Thu07/11/19 at 1018, | | AM PST | | | | | Until Thu07/11/19 at 1018 | | | | | | + +-------+ +------+---+---+ +---+---+ | | | +---+---+ + +-------+ +------+---+---+ | midazolam (PF) (VERSED) | Given | 07/11/19 | 1 mg | | | | injection INTRAPROCEDURE PRN, | | 20 10:20 | | | | | Starting [facility] 07/11/19 at 1020, | | AM PST | | | | | Until Thu07/11/19 at 1020 | | | | | | + +-------+ +------+---+---+ +---+---+ | | | +---+---+ + +-------+ +------+---+---+ | midazolam (PF) (VERSED) | Given | 07/11/19 | 1 mg | | | | injection INTRAPROCEDURE PRN, | | 20 10:22 | | | | | Starting [facility] 07/11/19 at 1022, | | AM PST | | | | | Until Thu07/11/19 at 1022 | | | | | | + +-------+ +------+---+---+ +---+---+ | | | +---+---+ + +-------+ +--------+---+---+ | midazolam (PF) (VERSED) | Given | 07/11/19 | 0.5 mg | | | | injection INTRAPROCEDURE PRN, | | 20 10:30 | | | | | Starting Thu07/11/19 at 1030, | | AM PST | | | | | Until Thu07/11/19 at 1030 | | | | | | + +-------+ +--------+---+---+ +---+---+ | | | +---+---+ + +-------+ +--------+---+---+ | midazolam (PF) (VERSED) | Given | 07/11/19 | 0.5 mg | | | | injection INTRAPROCEDURE PRN, | | 20 10:41 | | | | | Starting Thu07/11/19 at 1041, | | AM PST | | | | | Until Thu07/11/19 at 1041 | | | | | | + +-------+ +--------+---+---+ +---+---+ | | | +---+---+ + +-------+ +--------+---+---+ | midazolam (PF) (VERSED) | Given | 07/11/19 | 0.5 mg | | | | injection INTRAPROCEDURE PRN, | | 20 10:43 | | | | | Starting Thu07/11/19 at 1043, | | AM PST | | | | | Until 07/11/19 at 1043 | | | | | | + +-------+ +--------+---+---+ +---+---+ | | | +---+---+ + +-------+ +--------+---+---+ | OLANZapine (ZYPREXA) tablet 2.5 | Given | 07/11/19 | 2.5 mg | | | | mg 2.5 mg, oral, AT BEDTIME, | | 20 9:12 | | | | | First dose (after last | | PM PST | | | | | modification) on 07/10/19 at | | | | | | | 2200, Until Discontinued | | | | | | + +-------+ +--------+---+---+ +-------+ +--------+---+---+ | Given | 07/10/19 | 2.5 mg | | | | | 20 9:10 | | | | | | PM PST | | | | +-------+ +--------+---+---+ +---+---+ | | | +---+---+ + +-------+ +-------+---+---+ | omeprazole (PRILOSEC) capsule | Given | 07/12/19 | 40 mg | | | | 40 mg 40 mg, oral, DAILY, First | | 20 10:03 | | | | | dose on Thu07/08/19 at 1115, | | AM PST | | | | | Until Discontinued | | | | | | + +-------+ +-------+---+---+ +-------+ +-------+---+---+ | Given | 07/11/19 | 40 mg | | | | | 20 12:45 | | | | | | PM PST | | | | +-------+ +-------+---+---+ | Given | 07/10/19 | 40 mg | | | | | 20 10:05 | | | | | | AM PST | | | | +-------+ +-------+---+---+ +---+---+ | | | +---+---+ + +-------+ +------+---+---+ | ondansetron (ZOFRAN) tablet 8 | Given | 07/12/19 | 8 mg | | | | mg 8 mg, oral, EVERY 12 HOURS | | 20 9:33 | | | | | NEEDED, Starting Cheryl 07/07/19 at | | AM PST | | | | | 2256, Until Thu07/12/19 at 2205, | | | | | | | nausea/vomiting, first line | | | | | | + +-------+ +------+---+---+ +-------+ +------+---+---+ | Given | 07/11/19 | 8 mg | | | | | 20 9:12 | | | | | | PM PST | | | | +-------+ +------+---+---+ | Given | 07/11/19 | 8 mg | | | | | 20 8:54 | | | | | | AM PST | | | | +-------+ +------+---+---+ +---+---+ | | | +---+---+ + +---------+ +--------+---+---+ | pentamidine (PENTAM) IV 300 mg | New Bag | 07/09/19 | 300 mg | | | | 300 mg, intravenous, ONCE, | 5:54 | | | | | dose, 07/09/19 at 1315 | | PM PST | | | | + +---------+ +--------+---+---+ +---+---+ | | | +---+---+ + +---------+ +-------+---+---+ | piperacillin-tazobactam (ZOSYN) | New Bag | 07/09/19 | 4.5 g | | | | IV (minibag+) 4.5 g 4.5 g, | | 20 11:06 | | | | | intravenous, EVERY 6 HOURS, First | | AM PST | | | | | dose on Thu07/08/19 at 1115, | | | | | | | Until Discontinued | | | | | | + +---------+ +-------+---+---+ +---------+ +-------+---+---+ | New Bag | 07/09/19 | 4.5 g | | | | | 20 5:10 | | | | | | AM PST | | | | +---------+ +-------+---+---+ | New Bag | 07/09/19 | 4.5 g | | | | | 20 12:05 | | | | | | AM PST | | | | +---------+ +-------+---+---+ +---+---+ | | | +---+---+ + +-------+ +--------+---+---+ | posaconazole DR (NOXAFIL) | Given | 07/11/19 | 300 mg | | | | tablet 300 mg 300 mg, oral, | | 20 12:44 | | | | | DAILY, First dose on Cheryl 07/07/19 | | PM PST | | | | | at 2300, Until Discontinued | | | | | | + +-------+ +--------+---+---+ +-------+ +--------+---+---+ | Given | 07/10/19 | 300 mg | | | | | 20 10:05 | | | | | | AM PST | | | | +-------+ +--------+---+---+ | Given | 07/09/19 | 300 mg | | | | | 20 9:19 | | | | | | AM PST | | | | +-------+ +--------+---+---+ +---+---+ | | | +---+---+ + +-------+ +--------+---+---+ | posaconazole DR (NOXAFIL) | Given | 07/12/19 | 400 mg | | | | tablet 400 mg 400 mg, oral, | | 20 10:02 | | | | | DAILY, First dose (after last | | AM PST | | | | | modification) on Tu07/12/19 at | | | | | | | 0900, Until Discontinued | | | | | | + +-------+ +--------+---+---+ +---+---+ | | | +---+---+ + +---------+ +--------+---+---+ | potassium chloride IV (central | New Bag | 07/11/19 | 40 mEq | | | | line) 40 mEq 40 mEq, | | 20 5:03 | | | | | intravenous, NEEDED, Starting | | AM PST | | | | | Cheryl 07/07/19 at 2256, Until Thu | | | | | | | 07/12/19 at 2205, potassium level | | | | | | | of 3-3.4 mmol/L. Administer if | | | | | | | patient intolerant of oral | | | | | | | medications. | | | | | | + +---------+ +--------+---+---+ +---------+ +--------+---+---+ | New Bag | 07/09/19 | 40 mEq | | | | | 20 5:12 | | | | | | AM PST | | | | +---------+ +--------+---+---+ +---+---+ | | | +---+---+ + +---------+ +--------+---+---+ | potassium chloride IV (central | | 07/10/19 | 60 mEq | | | | line) 60 mEq 60 mEq, | | 20 2:10 | | | | | intravenous, NEEDED, Starting | | AM PST | | | | | Cheryl 07/07/19 at 2256, Until Tue | | | | | | | 07/12/19 at 2205, potassium level | | | | | | | less than or equal to 2.9 mmol/L | | | | | | + +---------+ +--------+---+---+ + +---+ | | | + +---+ | potassium phosphate IV (CENTRAL | | | LINE) 30 mmol 30 mmol, | | | intravenous, NEEDED, Starting | | | Cheryl 07/07/19 at 2256, Until Tue | | | 07/12/19 at 2205, Potassium less | | | than or equal to 3.4 mmol/L AND | | | Phosphate less than or equal to 2 | | | mg/dL | | + +---+ | | | + +---+ | potassium phosphate IV (CENTRAL | | | LINE) 40 mmol 40 mmol, | | | intravenous, NEEDED, Starting | | | [facility] 07/07/19 at 2256, Until Thu | | | 07/12/19 at 2205, Potassium less | | | than or equal to 2.9 mmol/L AND | | | Phosphate less than or equal to | | | 1.5 mg/dL. | | + +---+ | | | + +---+ + +-------+ +-------+---+---+ | predniSONE (DELTASONE) tablet | Given | 07/12/19 | 20 mg | | | | 20 mg 20 mg, oral, TWICE DAILY | | 20 3:43 | | | | | BEFORE MEALS, First dose (after | | PM PST | | | | | last modification) on Thu07/12/19 | | | | | | | at 1700, Until Discontinued | | | | | | + +-------+ +-------+---+---+ +---+---+ | | | +---+---+ + +-------+ +-------+---+---+ | prochlorperazine (COMPAZINE) | Given | 07/08/19 | 10 mg | | | | injection 5-10 mg 5-10 mg, | | 20 6:46 | | | | | intravenous, EVERY 6 HOURS | | PM PST | | | | | NEEDED, Starting 07/08/19 at | | | | | | | 0941, Until Tu07/12/19 at 2205, | | | | | | | n/v, if unable to take oral form | | | | | | | of medication | | | | | | + +-------+ +-------+---+---+ +-------+ +-------+---+---+ | Given | 07/08/19 | 10 mg | | | | | 20 10:01 | | | | | | AM PST | | | | +-------+ +-------+---+---+ + +---+ | | | + +---+ | prochlorperazine (COMPAZINE) | | | injection 1 dose, Starting Fri | | | 07/08/19 at 0952, Until Fri | | | 07/08/19 at 1001 | | + +---+ | | | + +---+ + +-------+ +------+---+---+ | prochlorperazine (COMPAZINE) | Given | 07/08/19 | 5 mg | | | | tablet 5-10 mg 5-10 mg, oral, | | 20 1:49 | | | | | EVERY 6 HOURS NEEDED, Starting | | AM PST | | | | | Cheryl 07/07/19 at 2256, Until Tue | | | | | | | 07/12/19 at 2205, nausea/vomiting, | | | | | | | second line | | | | | | + +-------+ +------+---+---+ +---+---+ | | | +---+---+ + +-------+ +--------+---+---+ | rOPINIRole (REQUIP) tablet 0.5 | Given | 07/11/19 | 0.5 mg | | | | mg 0.5 mg, oral, EVERY EVENING, | | 20 9:12 | | | | | First dose on [facility] 07/07/19 at 2345, | | PM PST | | | | | Until Discontinued | | | | | | + +-------+ +--------+---+---+ +-------+ +--------+---+---+ | Given | 07/10/19 | 0.5 mg | | | | | 20 9:11 | | | | | | PM PST | | | | +-------+ +--------+---+---+ | Given | 07/09/19 | 0.5 mg | | | | | 20 8:51 | | | | | | PM PST | | | | +-------+ +--------+---+---+ +---+---+ | | | +---+---+ + + + +---+ +---+ | sodium chloride (NS) 0.9 % | Rate/Dos | 07/07/19 | | 15 mL/hr | | | bolus 1,000 mL 1,000 mL, | e Change | 20 7:14 | | | | | intravenous, ONCE, 1 dose, [facility] | | PM PST | | | | | 07/07/19 at 1800 | | | | | | + + + +---+ +---+ +---------+ + +---+---+ | New Bag | 07/07/19 | 1,000 mL | | | | | 20 5:43 | | | | | | PM PST | | | | +---------+ + +---+---+ +---+---+ | | | +---+---+ + +---------+ + +-------+---+ | sodium chloride (NS) 0.9 % | New Bag | 07/08/19 | 1,000 mL | 500 | | | bolus 1,000 mL 1,000 mL, | | 20 2:00 | | mL/hr | | | intravenous, ONCE, 1 dose, Fri | | PM PST | | | | | 07/08/19 at 1345 | | | | | | + +---------+ + +-------+---+ +---+---+ | | | +---+---+ + +---------+ + +-------+---+ | sodium chloride (NS) 0.9 % | New Bag | 07/11/19 | 1,000 mL | 100 | | | bolus 1,000 mL 1,000 mL, | | 20 6:01 | | mL/hr | | | intravenous, NEEDED, Starting | | AM PST | | | | | 07/10/19 at 1331, Until Tue | | | | | | | 07/12/19 at 2205, for PO intake | | | | | | | <2L/day | | | | | | + +---------+ + +-------+---+ +---+---+ | | | +---+---+ + +-------+ + +---+---+ | sodium phosphates (FLEET) 19-7 | Given | 07/08/19 | 1 Bottle | | | | gram/118 mL rectal enema 1 Bottle | | 20 3:30 | | | | | 1 Bottle, rectal, ONCE, 1 dose, | | PM PST | | | | | 07/08/19 at 1500 | | | | | | + +-------+ + +---+---+ +---+---+ | | | +---+---+ + +-------+ + +---+---+ | sodium phosphates (FLEET) 19-7 | Given | 07/08/19 | 1 Bottle | | | | gram/118 mL rectal enema 1 Bottle | | 20 3:14 | | | | | 1 Bottle, rectal, ONCE, 1 dose, | | PM PST | | | | | 07/08/19 at 1500 | | | | | | + +-------+ + +---+---+ +---+---+ | | | +---+---+ + +-------+ +--------+---+---+ | tacrolimus capsule 0.5 mg 0.5 | Given | 07/09/19 | 0.5 mg | | | | mg, oral, TWICE DAILY | | 20 9:19 | | | | | (CSATACROLIMUS), First dose | | AM PST | | | | | (after last modification) on Cheryl | | | | | | | 07/07/19 at 2300, Until | | | | | | | Discontinued | | | | | | + +-------+ +--------+---+---+ +-------+ +--------+---+---+ | Given | 07/08/19 | 0.5 mg | | | | | 20 8:58 | | | | | | PM PST | | | | +-------+ +--------+---+---+ | Given | 07/08/19 | 0.5 mg | | | | | 20 10:31 | | | | | | AM PST | | | | +-------+ +--------+---+---+ +---+---+ | | | +---+---+ + +-------+ +------+---+---+ | tacrolimus capsule 1 mg 1 mg, | Given | 07/12/19 | 1 mg | | | | oral, TWICE DAILY | | 20 9:33 | | | | | (CSATACROLIMUS), First dose | | AM PST | | | | | (after last modification) on Sat | | | | | | | 07/09/19 at 2100, Until | | | | | | | Discontinued | | | | | | + +-------+ +------+---+---+ +-------+ +------+---+---+ | Given | 07/11/19 | 1 mg | | | | | 20 9:13 | | | | | | PM PST | | | | +-------+ +------+---+---+ | Given | 07/11/19 | 1 mg | | | | | 20 8:56 | | | | | | AM PST | | | | +-------+ +------+---+---+ +---+---+ | | | +---+---+ + +-------+ +--------+---+---+ | ursodiol (ACTIGALL) tablet 500 | Given | 07/12/19 | 500 mg | | | | mg 500 mg, oral, TWICE DAILY, | | 20 10:03 | | | | | First dose on Thu07/07/19 at 2300, | | AM PST | | | | | Until Discontinued | | | | | | + +-------+ +--------+---+---+ +-------+ +--------+---+---+ | Given | 07/11/19 | 500 mg | | | | | 20 9:13 | | | | | | PM PST | | | | +-------+ +--------+---+---+ | Given | 07/11/19 | 500 mg | | | | | 20 12:45 | | | | | | PM PST | | | | +-------+ +--------+---+---+ +---+---+ | | | +---+---+ + +-------+ +--------+---+---+ | valACYclovir (VALTREX) tablet | Given | 07/12/19 | 500 mg | | | | 500 mg 500 mg, oral, TWICE | | 20 10:03 | | | | | DAILY, First dose on Thu07/07/19 | | AM PST | | | | | at 2300, Until Discontinued | | | | | | + +-------+ +--------+---+---+ +-------+ +--------+---+---+ | Given | 07/11/19 | 500 mg | | | | | 20 9:12 | | | | | | PM PST | | | | +-------+ +--------+---+---+ | Given | 07/11/19 | 500 mg | | | | | 20 12:45 | | | | | | PM PST | | | | +-------+ +--------+---+---+ +---+---+ | | | +---+---+ documented in this encounter
--- OUTSIDE RECORDS SUMMARY | ~2020-03-12 | XMS | Encounter Summary ---
Demographics + + + | Address | [address] | | | [place] [address] | + + + | Home Phone [...] Team Providers + +------+ + | Care Typesetter Perforator Operator Name | Role | Phone | + +------+ + | Meredith Sanchez | PCP | | + +------+ + Encounter Details +--------+--------+ + + + | Date | Type | Department | Care Team | Description | +--------+--------+ + + + | 12/02/ | Travel | | | | | [...]
--- OUTSIDE RECORDS SUMMARY | ~2020-03-12 | XMS | Encounter Summary ---
Demographics + + + | Address | [address] | | | [place] [address] | + + + | Home Phone [...] Team Providers + +------+ + | Care Trades Helper Name | Role | Phone | + +------+ + | Meredith Sanchez | PCP | | + +------+ + Reason for Visit + +--------+ + | Reason | Onset | Comments | | | Date | | + +--------+ + | Medication | 07/28/ | [facility] [place] | | Adjustment | 2019 | | + +--------+ + Encounter Details +--------+ + + + + | Date | Type | Department | Care Team | Description | +--------+ + + + + | 07/28/ | Telephone | [facility] | Sejal De La Torre | Medication | | 2020 | | Clinics at S | N, DO [address] | Adjustment (IST | | | | [facility] [address] | [place]) | | | | [facility] for | [place], [place] | | | | | Health and Healing, | [address] | | | | | [address] | [phone] | | | | | [place], [place] | | | | | | [address] | | | | | | [phone] | | | +--------+ + + + [...] Telephone Encounter - Tayo Osborne MA - 07/28/2019 4:05 PM PSTFormatting of this no te might be different from the original. Result Follow-up CSA level: Lab Results Component Value Date FK506 03.0407/28/2019 Nona's dose will remain the same per Sejal De La Torre DO. Result Follow-up CSA level: Lab Results Component Value Date FK506 907/28/2019 Nona's dose will remain the same per Sejal De La Torre DO. Patient and/or their caregiver verified they are taking 0.5 mg every morning and 0.5 mg chirag ry evening. 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 Nona has been advised of when to [...] last dose at 2130 (time) on 07/27/2019 (date). documented in this encounter Plan of Treatment Not on filedocumented as of this encounter Visit Diagnoses Not on filedocumented in this encounter"
--- OUTSIDE RECORDS SUMMARY | ~2020-03-12 | XMS | Encounter Summary ---
Demographics + + + | Address | [address] | | | [place] [address] | + + + | Home Phone [...] Providers + +------+ + | Care Estate Tax Examiner Name | Role | Phone | + +------+ + | Meredith Sanchez | PCP | | + +------+ + Encounter Details +--------+ + + + + | Date | Type | Department | Care Team | Description | +--------+ + + + + | 07/27/ | Pharmacy | Pharmacy @ [facility] | | | | 2019 | Visit | [address] | | | | | | Reji Callahan Mailcode: | | | | | | [facility] | | | | | | and Healing, | | | | | | [address] | | | | | | [place], [place] | | | | | | [address] | | | +--------+ + + + [...]
--- OUTSIDE RECORDS SUMMARY | ~2020-03-12 | XMS | Encounter Summary ---
Demographics + + + | Address | [address] | | | [place] [address] | + + + | Home Phone | | + + + | Preferred Language | Unknown | + + + | Marital Status | Single | + + + | Restorationist Affiliation | NRP | + + + [...] Team Providers + +------+ + | Care Drapery Worker Name | Role | Phone | + +------+ + | Meredith Sanchez | PCP | | + +------+ + Encounter Details +--------+ + + + + | Date | Type | Department | Care Team | Description | +--------+ + + + + | 08/26/ | Telephone | [facility] | Sejal De La Torre | | | 2019 | | Clinics at S | N, DO [address] | | | | | [facility] [address] | | | | | Re[facility] Call[facility] [place] [facility] | [place], [place] | | | | | Health and Healing, | [address] | | | | | [address] | [phone] | | | | | [place], [place] | | | | | | [address] | | | | | | [phone] | | | +--------+ + + + [...] - Sejal De La Torre DO - 08/26/2019 3:50 PM PSTLabs reviewed and tac rolimus level from 08/22/19 at 3.2. Current dose 0.5 mg daily. Will increase to 0.5 mg BID / /, all other days 0.5 mg daily. Patient verbalized understanding. documented in this encounter Plan of Treatment Not on filedocumented as of this encounter Visit Diagnoses Not on filedocumented in this encounter"
--- OUTSIDE RECORDS SUMMARY | ~2020-03-12 | XMS | Encounter Summary ---
Demographics + + + | Address | [address] | | | [place] [address] | + + + | Home Phone [...] Team Providers + +------+ + | Care Engineer Fishing Vessel Name | Role | Phone | + +------+ + | Meredith Sanchez | PCP | | + +------+ + Encounter Details +--------+--------+ + + + | Date | Type | Department | Care Team | Description | +--------+--------+ + + + | 02/17/ | Travel | | | | | [...]
--- OUTSIDE RECORDS SUMMARY | ~2020-03-12 | XMS | Encounter Summary ---
Demographics + + + | Address | [address] | | | [place] [address] | + + + | Home Phone | | + + + | Preferred Language | Unknown | + + + | Marital Status | Single | + + + | Zoroastrian Affiliation | NRP | + + + [...] Team Providers + +------+ + | Care Flat Lock Machine Operator Name | Role | Phone | + +------+ + | Meredith Sanchez | PCP | | + +------+ + Encounter Details +--------+ + + + + | Date | Type | Department | Care Team | Description | +--------+ + + + + | 07/19/ | Pharmacy | Pharmacy @ [facility] | | | | 2019 | Visit | [address] | | | | | | Reji Callahan Mailcode: | | | | | | [facility] | | | | | | and Healing, | | | | | | [address] | | | | | | [place], [place] | | | | | | [address] | | | +--------+ + + + [...]
--- OUTSIDE RECORDS SUMMARY | ~2020-03-12 | XMS | Encounter Summary ---
Demographics + + + | Address | [address] | | | [place] [address] | + + + | Home Phone [...] Author + + + | Author | [facility] | + + + | Organization | [facility] | + + + | Address | Unknown | + + + | Phone | Unavailable | + + + Support + + +---------+ + | Name | Relationship | Address | Phone | + + +---------+ + | Claudia Cota | ECON | Unknown | | + + +---------+ + Care Team Providers + +------+ + | Care Precision Lens Polisher Name | Role | Phone | [...] | +--------+ + + + + | 04/14/ | Hospital | [facility] | Rn, Fast Track | | | 2019 | Encounter | Clinics at S | [address] | | | | | [address] | [place] [address] | | | | | [facility] | | | | | | Health and Healing, | | | | | | [address] | | | | | | [place], [place] | | | | | | [address] | | | | | | [phone] | | | +--------+ + + + [...] this encounter Progress Janee France RN - 04/14/2019 11:30 AM PDTRight AC veinaccessed with a 23 gauge butterfly n eedle. Labs + study labs drawn and sent. Tolerated procedure well. Site dressed with ster ile gauze and Coban. Patient discharged home. Janee Liu RN documented in this encou nter Plan of Treatment Not on filedocumented as of this encounter Procedures + +--------+ + + + | Procedure Name | Priori | Date/Time | Associated Diagnosis | Comments | | | ty | | | | + +--------+ + + + | RESEARCH ADDITIONAL | Routin | 04/14/2019 | MDS | Results for this | | TUBES | e | 11:14 AM | (myelodysplastic | procedure are in the | | | | PDT | syndrome) ([facility]) | results section. | + +--------+ + + + | CBC AND AUTO DIFF | Routin | 04/14/2019 | MDS | Results for this | | | e | 10:57 AM | (myelodysplastic | procedure are in the | | | | PDT | syndrome) ([facility]) | results section. | + +--------+ + + + | [facility] - COMPLETE | Routin | 04/14/2019 | MDS | Results for this | | METABOLIC SET | e | 10:57 AM | (myelodysplastic | procedure are in the | | | | PDT | syndrome) ([facility]) | results section. | + +--------+ + + + | [facility] CBC W | Routin | 04/14/2019 | MDS | Results for this | | DIFFERENTIAL | e | 10:57 AM | (myelodysplastic | procedure are in the | | | | PDT | syndrome) ([facility]) | results section. | + +--------+ + + + | [facility] TOTAL, PLASMA | Routin | 04/14/2019 | MDS | Results for this | | | e | 10:57 AM | (myelodysplastic | procedure are in the | | | | PDT | syndrome) ([facility]) | results section. | + +--------+ + + + documented in this encounter Results RESEARCH ADDITIONAL TUBES (04/14/2019 [...] + | [facility] | [address] | [place] [address] | | | SERVICES, CORE | [address] | | | + + + + + CBC AND AUTO DIFF (04/14/2019 10:57 AM PDT) + + + + + + | Component | Value | Ref Range | Performed | Pathologist | | | | | At | Signature | + + + + + + | WHITE CELL | 7.06 | 3.50 - 10.80 | [facility] | | | COUNT | | K/cu mm | LABORATORY | | | | | | SERVICES, | | | | | | [facility] | | | | | | [facility] | | + + + + + + | RED CELL | 4.58 | 4.00 - 5.20 | [facility] | | | COUNT | | M/cu mm | LABORATORY | | | | | | SERVICES, | | | | | | [facility] + | | | | | | [facility] | | + + + + + + | HEMOGLOBIN | 13.2 | 12.0 - 16.0 | [facility] | | | | | g/dL | LABORATORY | | | | | | SERVICES, | | | | | | [facility] + | | | | | | [facility]AL[facility] | | + + + + + + | HEMATOCRIT | 40.3 | 36.0 - 46.0 % | [facility] | | | | | | LABORATORY | | | | | | SERVICES, | | | | | | [facility] | [facility] + | | | | | | [facility] | | + + + + + + | MCV | 88.0 | 80.0 - 100.0 fL | [facility] [...] + + + | RDW SD | 44.6 | 35.1 - 46.3 fL | [facility] | | | | | | LABORATORY | | | | | | SERVICES, | | | | | | [facility] + | | | | | | [facility] | | + + + + + + | PLATELET | 270 | 150 - 400 K/cu | [facility] [...] + + + + | NEUTROPHIL | 67.1 | 50.0 - 70.0 % | [facility] | | | % | | | LABORATORY | | | | | | SERVICES, | | | | | | [facility] + | | | | | | [facility] | | + + + + + + | LYMPHOCYTE | 23.1 | 18.0 - 42.0 % | [facility] | | | % | | | LABORATORY | | | | | | SERVICES, | | | | | | [facility] + | | | | | | [facility] | | + + + + + + | MONOCYTE % | 5.7 | 3.5 - 9.0 % | [facility] | | | | | | LABORATORY | | | | | | SERVICES, | | | | | | [facility] | [facility] + | | | | | | [facility]ALING | | + + + + + + | EOS % | 2.4 | 1.0 - 3.0 % | [facility] [...] + + + + | IG% | 0.6 | 0.0 - 1.0 % | [facility] | | | | | | LABORATORY | | | | | | SERVICES, | | | | | | [facility] + | | | | | | [facility]AL[facility] | | + + + + + + | NEUTROPHIL | 4.74 | 1.80 - 7.70 | [facility] | | | # | | K/cu mm | LABORATORY | | | | | | SERVICES, | | | | | | [facility] | | [facility] + | | | | | | [facility]ALING | | + + + + + + | NEUTROPHIL | 4.74Comment: Preliminary | 1.80 - 7.70 | [facility] [...] + + + + | LYMPHOCYTE | 1.63 | 1.00 - 4.80 | [facility] | | | # | | K/cu mm | LABORATORY | | | | | | SERVICES, | | | | | | [facility] | [facility] + | | | | | | [facility]ALING | | + + + + + + | MONOCYTE # | 0.40 | 0.10 - 0.90 | [facility] | [...] + + + | BASO # | 0.08 | 0.00 - 0.10 | [...] | included in the neutrophil count. | [facility] | | [facility] + | | | [facility] | + + + + + + + + | Performing | Address | City/State/Zipcode | Phone Number | | Organization | | | | + + + + + | [facility] | [address] | [place] [address] | | | [facility] | | | | | HE[facility] + HEALING | | | | + + + + + [facility] - COMPLETE METABOLIC SET (04/14/2019 10:57 AM PDT) + +---------+ + + + | Component | Value | Ref Range | Performed | Pathologist | | | | | At | Signature | + +---------+ + + + | GLUCOSE, | 145 (H) | 70 - 99 mg/dL | [...] +---------+ + + + | CREATININE | 0.65 | 0.60 - 1.10 | [facility] | [...] | | | LABORATORY | | | [place] | | | SERVICES, | | | [...] +---------+ + + + | TOTAL | 7.0 [...] | + + + + + | [facility] | [address] | [place] [address] | | | [facility] | | | | | HEALTH + HEALING | | | | + + + + + LDH TOTAL, PLASMA (04/14/2019 10:57 AM PDT) + +---------+ + + + | Component | Value | Ref Range | Performed | Pathologist | | | | | At | Signature | + +---------+ + + + | LD TOTAL, | 164 | <=250 U/L | [facility] | | [...] [facility] | [address] | [place] [address] | | | SERVICES, CORE | [address] | | | + + + + + documented in this encounter Visit Diagnoses + + | Diagnosis | + + | MDS (myelodysplastic syndrome) (HCC) Myelodysplastic syndrome, unspecified | + + documented in this encounter"
--- OUTSIDE RECORDS SUMMARY | ~2020-03-12 | XMS | Encounter Summary ---
Demographics + + + | Address | [address] | | | [place] [address] | + + + | Home Phone [...] Team Providers + +------+ + | Care Display Manager Name | Role | Phone | [...] | | | | syndrome) | Jason Lujan | Jason Lujan | | | | | (HCC) | [place] | | | | | Procedures | [address] | [address] | | | | | [place] | Phone: | Phone: | | | | | OFFICE/OUTPT | [phone] | [phone] | | | | | | Fax: | Fax: | | | | | VISIT,VENKATESHLE | [phone] | [phone] | | | | | VL IV | | | +--------+--------+ + + + + Encounter Details +--------+---------+ + + + | Date | Type | Department | Care Team | Description | +--------+---------+ + + + | 06/24/ | Office | [facility] | Sejal De La Torre | Fatigue, unspecified | | 2019 | Visit | Clinics at S | N, DO [address] | type (Primary Dx) | | | | [facility] [address] | | | | | [facility] | [place], [place] | | | | | Health and Healing, | [address] | | | | | Building [address] | [phone] | | | | | [place], [place] | | | | | | [address] | | | | | | [phone] | | | +--------+---------+ + + + [...] + + + | Blood Pressure | 118/69 | 06/24/2019 8:01 AM | | | | | PST | | + + + + + | Pulse | 88 | 06/24/2019 8:01 AM | | | | | PST | | + + + + + | Temperature | 37.2 C (98.9 F) | 06/24/2019 8:01 AM | | | | | PST | | + + + + + | Respiratory Rate | - | - | | + + + + + | Oxygen Saturation | 96% | 06/24/2019 8:01 AM | | | | | PST | | + + + + + | Inhaled Oxygen | - | - | | | Concentration | | | | + + + + + | Weight | 57.6 kg (127 lb) | 06/24/2019 8:01 AM | | | | | PST | | + + + + + | Height | - | - | | + + + + + | Body Mass Index | 22.5 | 06/21/2019 9:34 AM | | | [...] Instructions Sejal De La Torre DO - 06/24/2019 8:00 AM PSTFormatting of this not e might be different from the original. Good to see you. Please keep track of what you are eating and how many bowel movements you are having. We will start beclomethasone 4X daily to help with nausea and appetite. Start clotrimazole kelli for the white coating on your tongue. Re-start your pepcid at night. Lab Results Component Value Date WBC 5.22 06/24/2019 HB 10.1 06/24/2019 HCT 31.2 06/24/2019 PLT 139 06/24/2019 MCV 87.9 06/24/2019 RDW 52.5 06/24/2019 Lab Results Lab Test Name Results Date/Time GLU 127 06/24/19 GLU 130 06/21/19 GLU 101 06/19/19 BUN 11 06/24/19 BUN 16 06/21/19 BUN 16 06/19/19 CR 0.92 06/24/19 CR 0.98 06/21/19 CR 0.93 06/19/19 NA 134 06/24/19 NA 134 06/21/19 NA 133 06/19/19 K 3.6 06/24/19 K 3.6 06/21/19 K 3.9 06/19/19 CL 100 06/24/19 CL 102 06/21/19 CL 99 06/19/19 BICARB 20 06/24/19 BICARB 18 06/21/19 BICARB 21 06/19/19 CA 9.3 06/24/19 CA 8.8 06/21/19 CA 9.3 06/19/19 MG 1.1 06/24/19 MG 1.3 06/21/19 MG 1.2 06/19/19 documented in this encounter Progress Notes Sejal De La Torre DO - 06/24/2019 8:00 AM PST [facility] Physician: Sejal De La Torre DO Local oncologist: Dr. Sequeira Hematologic Malignancy: MDS Conditioning regimen: FluCyTBI Date of transplant: 04/22/2019 Donor: CBU 1: [id number]/02 match, CBU 2: [id number]/02 match Research study: Kyle "[id number]: A Multicenter, Randomized, Phase III Registration Tr [...] dropping counts. --Jun. Moved to [place] ([facility]) -- 10/07/18 showed normal chemistries, Bilirubin 1.4, [...] for D4-D7. 01/14-01/26/2019 admitted for zoster to [facility]. Vidaza held. 02/17/2019- seen at [facility] by Dr. De La Torre, no healthy siblings so cord blood is only option -consented to kyle "[id number]: A Multicenter, Randomized, Phase III Registration Tri il of Transplantation of NiCord, Ex Vivo Expanded, UCB-derived, Stem and Progenitor Cells, vs. Unmanipulated UCB for Patients With Hematological Malignancies". She was randomized to SOC arm. --02/21-03/01 C3 aza.Tolerated well without complications. --04/15-05/18/2019 admitted to [facility] for planned flu/cy/tbi conditioned UCB on Gamida study (SOC arm). 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 Nona Hopper is a 53 y.o. female with hx of MDS, currently day +63, s/p Flu/cy/TBI co nditioned URD cord on gamida trial -on SOC arm. Interval History: Nona comes to clinic today for post-transplant follow up. Overall, she is feeling well. She has had some increased fatigue over the last week and feels frustrated that she isnt stronger after transplant. Reports slight rash on behind one ear and down her back. Face and chest, arms, legs are clear. BSA 10%. Also notes progressive weight loss and poor appetite. Food doesn't sound good. Not sure if its taste alterations or nausea. She has intermittent loose stools and headache. Reports no more than 2 loose stools per day. No fev er/chills. Review of Systems: General: Denies fevers, chills, [...] 1 mL by mouth four times daily. CLOTRIMAZOLE 10 MG KELLI Take 1 tablet by mouth five times daily for 10 days. Allow to dis solve for 15-30 minutes. DAPSONE 100 MG TABLET Take 1 tablet [...] for constipation. TACROLIMUS 0.5 MG CAPSULE Effective 06/24/2019: Take [...] Vitals: BP Readings from Last 1 Encounters: 06/24/19 118/69 Pulse Readings from Last 1 Encounters: 06/24/19 88 Resp Readings from Last 1 Encounters: 06/21/19 24 Wt Readings from Last 1 Encounters: 06/24/19 57.6 kg (127 lb) Temp Readings from Last 1 Encounters: 06/24/19 37.2 C (98.9 F) (Oral) Body mass index is 22.5 kg/m. Physical Exam: General:This is a femalein no acute distress. Sitting up in chair with adult caregiver at bedside. HEENT:PERRL. Sclerae anicteric. Mucosa pink [...] 72 hours (or 3 results) Recent Labs 06/24/19 0716 WBC 5.22 HB 10.1* HCT 31.2* PLT 139* NEUTROPERC 56.4 LYMPHPERC 18.0 MONOPERC 13.6* BASOPERC 0.6 EOSPERC 10.3* Chemistries: Last 72 Hours (or 3 results): Recent Labs 06/19/19 1334 06/21/19 0933 06/24/19 0716 NA 133* 134* 134* K 3.9 3.6 3.6 CL 99 102 100 BICARB 21 18* 20* BUN 16 16 11 CR 0.93 0.98 0.92 GLU 101* 130* 127* CA 9.3 8.8 9.3 AST 15 15 14 ALT 16 17 16 AP 80 80 81 TBILI 1.6* 1.4* 1.2 TP 6.6 6.3* 6.6 ALB 3.9 3.6 3.9 ANIONGAP 13* 14* 14* ANIONALBCOR 13* 15* 14* Lab Results Component Value Date MG 1.1 06/24/2019 Hematology: Hematologic Malignancy: MDS Conditioning Regimen: FluCyTBI double cord Research study: Kyle "[id number]: A Multicenter, Randomized, Phase III Registration Trial [...] 10 6 per kg Stem Cell Day: +63 Post-transplant: -Day +21 chimerism ordered per study: [...] <10,000 sooner for s/s bleeding 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 Start steroid cream. Also, given nausea/weight loss will start beclomethosone QID. Prophylaxis/Treatment: Prophylaxis with tacrolimus and MMF per [facility] protocol -Tacrolimus startedD-3 (goal 5-15) -MMF 1 gm PO TID D-3 to D+60 (stop on 06/21/2019) Acute GvHD Staging: Skin: stage 1 Gut: stage 0 Liver: stage 0 Overall Grade: 1 Kyle Simpson phase 3 (IRB 94003) Acute GVHD Staging Complete on study visit [...] mL diarrhea/day 2 25-50% BSA 3.1-6 mg/dL 0413-1067 mL diarrhea/day 3 >50% BSA Generalized erythroderma [...] abd pain (Y/N):n Ileus (Y/N):n Assign Stage: 1 0 0 0 Presumptive/ [...] months ofanticoagulationwith apixiban, end date 04/14/19. 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 -s/p Lisinopril 5 mg [...] Lab Results Component Value Date CMVQUANTPCR Undetected 06/21/2019 CMVQUANTPCR Undetected 06/16/2019 CMVQUANTPCR Undetected 06/13/2019 CMVQUANTPCR Undetected 06/10/2019 Antifungal: Posaconazole for antifungal prophylaxis through day [...] with me. Sejal De La Torre DO Supervisor Of Instructionhide measuring machine operator [facility] documented in thi s encounter Plan of Treatment Not on filedocumented as of this encounter Results TSH (06/28/2019 3:00 PM PST) + +-------+ [...] | + + + + + | [facility] [employer] [facility] [employer] [employer] | [address] | [place] [address] | | | SERVICES, CORE | [address] | | | + + + + + documented in this encounter Visit Diagnoses + + | Diagnosis | + + | Fatigue, unspecified type - Primary | + + documented in this encounter
--- OUTSIDE RECORDS SUMMARY | ~2020-03-12 | XMS | Encounter Summary ---
Demographics + + + | Address | [address] | | | [place] [address] | + + + | Home Phone [...] Providers + +------+ + | Care Special Population Paraprofessional Name | Role | Phone | + +------+ + | Meredith Sanchez | PCP | | + +------+ + Encounter Details +--------+--------+ + + + | Date | Type | Department | Care Team | Description | +--------+--------+ + + + | 06/10/ | Travel | | | | | [...]
--- OUTSIDE RECORDS SUMMARY | ~2020-03-12 | XMS | Encounter Summary ---
Demographics + + + | Address | [address] | | | [place] [address] | + + + | Home Phone [...] Team Providers + +------+ + | Care Farm Technician Name | Role | Phone | + +------+ + | Meredith Sanchez | PCP | | + +------+ + Encounter Details +--------+ + + + + | Date | Type | Department | Care Team | Description | +--------+ + + + + | 04/14/ | Pharmacy | Pharmacy @ [facility] | | | | 2019 | Visit | [address] | | | | | | Reji Callahan Mailcode: | | | | | | [facility] | | | | | | and Healing, | | | | | | [address] | | | | | | [place], [place] | | | | | | [address] | | | +--------+ + + + [...]
--- OUTSIDE RECORDS SUMMARY | ~2020-03-12 | XMS | Encounter Summary ---
Demographics + + + | Address | [address] | | | [place] [address] | + + + | Home Phone [...] Team Providers + +------+ + | Care Ceramics Engineer Name | Role | Phone | [...] + + | 02/01/ | Hospital | [facility] | | | | 2020 | Encounter | Clinics at S | | | | | | [facility] [address] | | | | | | [facility] | | | | | | Health and Healing, | | | | | | [address] | | | | | | [place], [place] | | | | | | [address] | | | | | | [phone] | | | +--------+ + + + [...] dry | | | | | | grdoe-gqxlec-epkk | skin and rub in | | | | | | disease | gently. Indications: | | | | | | | skin | | | | | | | cposu-kqacqs-mrcl | | | | | | | [...] tablets by | 120 | 3 | 07/02/20 | | | 100 mg oral | [...] documented as of this encounter Progress Notes Parish Owen MA - 02/02/2020 10:00 AM PDTVenipuncture performed in clinic, blood sa mple obtained from Right antecubital site documented in thi s encounter Plan of [...] | | | | | syndrome) ([facility]) | | + +--------+ + + + [...] + | VERITO-SEVILLA VIRUS | Routin | 02/02/2020 | S/P [...] | | | | | syndrome) ([facility]) | | + +--------+ + + + | [facility] CBC W | Routin | 02/02/2020 | S/P cord blood | Results for this | | DIFFERENTIAL | e | 9:38 AM | transplantation MDS | procedure are in the | | | | PDT | (myelodysplastic | results section. | | | | | syndrome) ([facility]) | | + +--------+ + + + | CMV PCR | Routin | 02/02/2020 | S/P cord blood | Results for this | | QUANTITATION, PLASMA | e | 9:38 AM | transplantation MDS | procedure are in the | | | | PDT | (myelodysplastic | results section. | | | | | syndrome) ([facility]) | | + +--------+ + + + [...] this encounter Results CBC AND AUTO DIFF (02/02/2020 9:38 AM PDT) + + + + + + | Component | Value | Ref Range | Performed | Pathologist | | | | | At | Signature | + + + + + + | WHITE CELL | 5.23 | 3.50 - 10.80 | [facility] | | | COUNT | | K/cu mm | LABORATORY | | | | | | SERVICES, | | | | | | [facility] + | | | | | | [facility]ALING | | + + + + + + | RED CELL | 3.47 (L) | 4.00 - 5.20 | [facility] [...] + + + + | HEMATOCRIT | 33.1 (L) | 36.0 - 46.0 % | [facility] | | | | | | LABORATORY | | | | | | SERVICES, | | | | | | [facility] | | [facility] + | | | | | | HEALING | | + + + + + + | MCV | 95.4 | 80.0 - 100.0 fL | [facility] | | | | | | LABORATORY | | | | | | SERVICES, | | | | | | [facility] | | [facility] + | | | | | | HEALING | | + + + + + + | MCHC | 30.2 (L) | 32.0 - 36.0 | [facility] [...] + + + + | PLATELET | 120 (L) | 150 - 400 K/cu | [facility] | | | COUNT | | mm | LABORATORY | | | | | | SERVICES, | | | | | | [facility] | | | [facility] + | | | | | | HEALING | | + + + + + + | MPV | 13.0 (H) | 9.7 - 12.3 fL | [...] + + + + | NEUTROPHIL | 74.5 (H) | 50.0 - 70.0 % | [facility] | | | % | | | LABORATORY | | | | | | SERVICES, | | | | | | [facility] | | [facility] + | | | | | | HEALING | | + + + + + + | LYMPHOCYTE | 12.0 (L) | 18.0 - 42.0 % | [facility] | | | % | | | LABORATORY | | | | | | SERVICES, | | | | | | [facility] | | | | | [facility] + | | | | | | HEALING | | + + + + + + | MONOCYTE % | 9.9 (H) | 3.5 - 9.0 % | [...] + + + + | NEUTROPHIL | 3.89 | 1.80 - 7.70 | [facility] | | | # | | K/cu mm | LABORATORY | | | | | | SERVICES, | | | | | | [facility] | | | [facility] + | | | | | | HEALING | | + + + + + + | NEUTROPHIL | 3.89Comment: Preliminary | 1.80 - 7.70 | [facility] [...] + + + | MONOCYTE # | 0.52 | 0.10 - 0.90 | [facility] | [...] SERVICES, | | | | | | [facility] | | | | [...] + + + + + | [facility] | [address] | [place] [address] | | | [facility] | | | | | HE[facility] + HEALING | | | | + + + + + [facility] - COMPLETE METABOLIC SET (02/02/2020 9:38 AM [...] | | | LABORATORY | | | [place] | | | SERVICES, | | | [...] MDRD equation recommended by the National | [facility] | | Kidney Disease Education Program. [...] LABORATORY | [address] | [place] [address] | | | SERVICES, [facility] | | | | | HEALTH [...] [facility] | [address] | [place] [address] | | | SERVICES, CENTER FOR | [...] SERVICES, | | | | | | [facility] | | | | | | [...] LABORATORY | [address] | [place] [address] | | | SERVICES, [facility] | | | | | HEALTH [...] [facility] | [address] | [place] [address] | | | SERVICES, [facility] | | | | | HEALTH [...] may not reflect true | [facility] | | biological changes and must be [...] | | | characteristics determined by the [facility] | | | Molecular Diagnostic Center. It has not been cleared or approved by | | | the Food and Drug Administration. FDA approval is not required for | | | clinical use of this test, and therefore validation was done as | | | required under the requirements of the Clinical Laboratory Improvement | | | Act of 1988. The [facility] | | | Diagnostic Center is a fully licensed and/or accredited clinical | | | laboratory under CLIA, CAP, and the [facility]. | | + + + + + + + + | Performing | Address | City/State/Zipcode | Phone Number | | Organization | | | | + + + + + | [facility] | [address] | [place] [address] | | | DIAGNOSTIC | [address] [...] + | Test performed by immunoassay using [employer] i2000. . | [facility] | | [...] + + + + + | [facility] | [address] | [place] [address] | | | SERVICES, SPECIAL | [address] | | | | IMM + COAG | | | | + + + + + VERITO-SEVILLA VIRUS PCR, PLASMA (02/02/2020 9:38 AM PDT) [...] | | performance characteristics determined by the [facility] | | | Diagnostics Center. It has not been cleared or approved by the Food | | | and Drug Administration. FDA approval is not required for clinical | | | use of this test, and therefore validation was done as required under | | | the requirements of the Clinical Laboratory Improvement Act of 1988. | | | The [facility] is a fully licensed and/or accredited clinical laboratory | | | under CLIA, CAP, and the [facility]. References: 1) | | | Phong [...] | | real-time polymerase chain reaction. Transfusion 2008;48:9537-6909. | | | 4) Bassam BEARDEN, Genny CASAS, Félix I, van keshia Bij W, et al. | | | Frequent monitoring of Verito-Sevilla virus DNA load in unfractionated | | | whole blood is essential for early detection of posttransplant | | | lymphoproliferative disease in high-risk patients. Blood | | | 2001;97(5):3862-4336. | | + + + + + + + + | Performing | Address | City/State/Zipcode | Phone Number | | Organization | | | | + + + + + | [facility] | [address] | [place] [address] | | | DIAGNOSTIC | [address] [...] - [facility] | | | | [place] [address] | | | | | | [phone]. | | | | | | Zeferino [...] A: | | | | | | [employer] | | | | + + + [...] [facility] | [address] | [place], [place] | | | [facility] | | [address] | | + + + + + documented in this encounter Visit Diagnoses + + | Diagnosis | + + | S/P cord blood transplantation Other specified organ or tissue replaced by transplant | + + | MDS (myelodysplastic syndrome) (HCC) Myelodysplastic syndrome, unspecified | + + documented in this encounter"
--- OUTSIDE RECORDS SUMMARY | ~2020-03-12 | XMS | Encounter Summary ---
Demographics + + + | Address | [address] | | | [place] [address] | + + + | Home Phone [...] Team Providers + +------+ + | Care Tallow Refiner Name | Role | Phone | + +------+ + | Meredith Sanchez | PCP | | + +------+ + Reason for Visit + + + | Reason | Comments | + + + | Lab Draw | PICC | + + + Other (Routine) +--------+--------+ [...] 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 | [place], | [facility] [address] | | | | | (myelodyspla | DO [address] | | | | | stic | Stephanie Valverde | Center for | | | | | syndrome) | [address] | Health and | | | | | (HCC) | [place], [place] | Healing, | | | | | Procedures | [address] | Building [address] | | | | | [place] | Phone: | [place], [place] | | | | | OFFICE/OUTPT | [phone] | [address] | | | | | | Fax: | Phone: | | | | | VISIT,EST,LE | [phone] | [phone] | | | | | VL IV [place] | | Fax: | | | | | EST PATIENT | | [phone] | | | | | LEVEL V | | | +--------+--------+ + + + + Encounter Details +--------+ + + + + | Date | Type | Department | Care Team | Description | +--------+ + + + + | 07/18/ | Hospital | [facility] | Rn, Fast Track | | | 2019 | Encounter | Clinics at S | [address] | | | | | [facility] [address] | [place] [address] | | | | | [address] [facility] | | | | | | Health and Healing, | | | | | | Building 2 | | | | | | [place], [place] | | | | | | [address] | | | | | | [phone] | | | +--------+ + + + [...] + + + | Blood Pressure | 117/65 | 07/18/2019 1:02 PM | | | | | PST | | + + + + + | Pulse | 87 | 07/18/2019 1:02 PM | | | | | PST | | + + + + + | Temperature | 36.7 C (98.1 F) | 07/18/2019 1:02 PM | | | | | PST | | + + + + + | Respiratory Rate | 16 | 07/18/2019 1:02 PM | | | | | PST | | + + + + + | Oxygen Saturation | 99% | 07/18/2019 1:02 PM | | | | | PST | | + + + + + | Inhaled Oxygen | - | - | | | Concentration | | | | + + + + + | Weight | 55.1 kg (121 lb 6.4 | 07/18/2019 12:55 PM | | | | oz) | PST | | + + + + + | Height | - | - | | + + + + + | Body Mass Index | 22.4 | 07/08/2019 4:32 PM | | | [...] documented as of this encounter Progress Notes Daily Stern RN - 07/18/2019 12:51 PM Sarah Hopper ambulatory to Fast Track room today for lab draw. PICC accessed per protocol. Good blood return noted. Appropriate waste discarded. Labs d rawn and sent. PICC pulse flushed with 20 mL NS. Patient discharged back out to waiting room for possible supportive care. Daily Stern RN P STdocumented in this encounter Plan of Treatment Not on filedocumented as of this encounter Procedures + +--------+ + + + | Procedure Name | Priori | Date/Time | Associated Diagnosis | Comments | | | ty | | | | + +--------+ + + + | BLOOD BANK HOLD TUBE | Routin | 07/18/2019 | MDS | Results for this | | - DON | e | 1:11 PM | (myelodysplastic | procedure are in the | | | | PST | syndrome) ([facility]) | results section. | | T PROCESS | | | | | + +--------+ + + + | [facility] - MAGNESIUM, | Routin | 07/18/2019 | S/P cord blood | Results for this | | PLASMA | e | 12:54 PM | transplantation MDS | procedure are in the | | | | PST | (myelodysplastic | results section. | | | | | syndrome) ([facility]) | | + +--------+ + + + | [facility] - PHOSPHORUS, | Routin | 07/18/2019 | S/P cord blood | Results for this | | PLASMA | e | 12:54 PM | transplantation MDS | procedure are in the | | | | PST | (myelodysplastic | results section. | | | | | syndrome) ([facility]) | | + +--------+ + + + | [facility] - LDH TOTAL, | Routin | 07/18/2019 | S/P cord blood | Results for this | | PLASMA | e | 12:54 PM | transplantation MDS | procedure are in the | | | | PST | (myelodysplastic | results section. | | | | | syndrome) ([facility]) | | + +--------+ + + + | CBC AND AUTO DIFF | Routin | 07/18/2019 | S/P cord blood | Results for this | | | e | 12:54 PM | transplantation MDS | procedure are in the | | | | PST | (myelodysplastic | results section. | | | | | syndrome) ([facility]) | | + +--------+ + + + | [facility] - COMPLETE | Routin | 07/18/2019 | S/P cord blood | Results for this | | METABOLIC SET | e | 12:54 PM | transplantation MDS | procedure are in the | | | | PST | (myelodysplastic | results section. | | | | | syndrome) ([facility]) | | + +--------+ + + + | [facility] CBC W | Routin | 07/18/2019 | S/P cord blood | Results for this | | DIFFERENTIAL | e | 12:54 PM | transplantation MDS | procedure are in the | | | | PST | (myelodysplastic | results section. | | | |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) | | + +--------+ + + + | TACROLIMUS, WHOLE | Routin | 07/18/2019 | S/P cord blood | Results for this | | BLOOD | e | 12:54 PM | transplantation MDS | procedure are in the | | | | PST | (myelodysplastic | results section. | | | |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) | | + +--------+ + + + documented in this encounter Results BLOOD BANK HOLD TUBE - DON T PROCESS (07/18/2019 1:11 PM PST) + + + + + [...] + | [facility] | [address] | [place] [address] | | | SERVICES, | [address] | | | | TRANSFUSION MEDICINE | | | | + + + + + CBC AND AUTO DIFF (07/18/2019 12:54 PM PST) + + + + + + | Component | Value | Ref Range | Performed | Pathologist | | | | | At | Signature | + + + + + + | WHITE CELL | 9.02 | 3.50 - 10.80 | [facility] | [...] + + + + | HEMATOCRIT | 31.4 (L) | 36.0 - 46.0 % | [facility] | | | | | | LABORATORY | | | | | | SERVICES, | | | | | | [facility] | | | | | | [facility] + | | | | | | HEALING | | + + + + + + | MCV | 94.9 | 80.0 - 100.0 fL | [facility] | | | | | | LABORATORY | | | | | | SERVICES, | | | | | | [facility] | | | | | | [facility] + | | | | | | HEALING | | + + + + + + | MCHC | 30.9 (L) | 32.0 - 36.0 | [facility] | | | | | g/dL | LABORATORY | | | | | | SERVICES, | | | | | | [facility] | | | | | | HEALTH + | | | | | | HEALING | | + + + + + + | RDW SD | 67.9 (H) | 35.1 - 46.3 fL | [facility] | | | | | | LABORATORY | | | | | | SERVICES, | | | | | | [facility] | | | | | | HEALTH + | | | | | | HEALING | | + + + + + + | PLATELET | 241 | 150 - 400 K/cu | [facility] [...] + + + + | NEUTROPHIL | 71.1 (H) | 50.0 - 70.0 % | [facility] | | | % | | | LABORATORY | | | | | | SERVICES, | | | | | | [facility] | | | | | | HEALTH + | | | | | | HEALING | | + + + + + + | LYMPHOCYTE | 14.1 (L) | 18.0 - 42.0 % | [...] + + + | EOS % | 0.3 (L) | 1.0 - 3.0 % | [facility] | | | | | | LABORATORY | | | | | | SERVICES, | | | | | | [facility] | | | | | | HEALTH + | | | | | | HEALING | | + + + + + + | BASO % | 0.1 | 0.0 - 2.0 % | [facility] [...] + + + + | NEUTROPHIL | 6.41 | 1.80 - 7.70 | [facility] | | | # | | K/cu mm | LABORATORY | | | | | | SERVICES, | | | | | | [facility] | | | | | | HEALTH + | | | | | | HEALING | | + + + + + + | NEUTROPHIL | 6.41Comment: Preliminary | 1.80 - 7.70 | [facility] [...] + + + + | LYMPHOCYTE | 1.27 | 1.00 - 4.80 | [facility] | | | # | | K/cu mm | LABORATORY | | | | | | SERVICES, | | | | | | [facility] | | | | | | HEALTH + | | | | | | HEALING | | + + + + + + | MONOCYTE # | 1.05 (H) | 0.10 - 0.90 | [facility] [...] + + + + | IG# | 0.25 (H) | 0.00 - 0.10 | [facility] [...] [facility] | [address] | [place] [address] | | | SERVICES, [facility] | | | | | HEALTH [...] | | | LABORATORY | | | [place] | | | SERVICES, | | | [...] MDRD equation recommended by the National | [facility] | | Kidney Disease Education Program. Estimated [...] | + + + + + | [facility] | [address] | [place] [address] | | | SERVICES, [facility] | | | | | HEALTH [...] [facility] | [address] | [place] [address] | | | [facility] | | | | | [...] | + + + + + | [facility] | [address] | [place] [address] | | | SERVICES, CENTER FOR | [...] [facility] | [address] | [place] [address] | | | SERVICES, CENTER FOR | [...] | Test performed by immunoassay using [employer] i2000. . | [facility] | | Samples [...] | + + + + + | [facility] | [address] | [place] [address] | | | SERVICES, SPECIAL | JASON [...]
--- OUTSIDE RECORDS SUMMARY | ~2020-03-12 | XMS | Encounter Summary ---
Demographics + + + | Address | [address] | | | [place] [address] | + + + | Home Phone [...] Team Providers + +------+ + | Care Real Estate Account Executive Name | Role | Phone | + +------+ + | Meredith Sanchez | PCP | | + +------+ + Encounter Details +--------+ + + + + | Date | Type | Department | Care Team | Description | +--------+ + + + + | 06/02/ | Pharmacy | Pharmacy @ [facility] | | | | 2019 | Visit | [address] | | | | | | [address] Mailcode: | | | | | | [facility] | | | | | | and Healing, | | | | | | [address] | | | | | | [place], [place] | | | | | | [address] | | | +--------+ + + + [...]
--- OUTSIDE RECORDS SUMMARY | ~2020-03-12 | XMS | Encounter Summary ---
Demographics + + + | Address | [address] | | | [place] [address] | + + + | Home Phone [...] Team Providers + +------+ + | Care Ground Instructor Advanced Name | Role | Phone | + +------+ + | Meredith Sanhcez | PCP | | + +------+ + Encounter Details +--------+ + + + + | Date | Type | Department | Care Team | Description | +--------+ + + + + | 12/28/ | Documentati | [facility] | Work, Social | | | 2019 | on | Clinics at S | | | | | | [facility] [address] | | | | | | [address] [facility] | | | | | | Health and Healing, | | | | | | [address] | | | | | | [place], [place] | | | | | | [address] | | | | | | [phone] | | | +--------+ + + + [...] Telephone Encounter - Janee Bellamy MSW - 12/29/2018 10:11 AM PDTName:Nona Hopper Date: td : 1965 Problem Identified: Transplant planning received a telephone call from patient Requesting a telephone call back to discuss planning for her upcoming stem cell transplant. Called patient and left a voice message on her phone requesting a call back. Also request ed long term care social worker, Elham Delcid, to contact patient regarding lodging options. Plan/Intervention: Social work will plan to be available for support and assistance as need ed. KRIS FAULKNER, [facility] [address] Mailcode: [place] [address] documented in this en counter Plan of Treatment Not on filedocumented as of this encounter Visit Diagnoses Not on filedocumented in this encounter"
--- OUTSIDE RECORDS SUMMARY | ~2020-03-12 | XMS | Encounter Summary ---
Demographics + + + | Address | [address] | | | [place] [address] | + + + | Home Phone [...] Team Providers + +------+ + | Care Account Resolution Expert Name | Role | Phone | + +------+ + | Meredith Sanchez | PCP | | + +------+ + Encounter Details +--------+--------+ + + + | Date | Type | Department | Care Team | Description | +--------+--------+ + + + | 07/01/ | Travel | | | | | [...]
--- OUTSIDE RECORDS SUMMARY | ~2020-03-12 | XMS | Encounter Summary ---
Demographics + + + | Address | [address] | | | [place] [address] | + + + | Home Phone [...] Providers + +------+ + | Care Supervisor Electronic Coils Name | Role | Phone | + +------+ + | Meredith Sanchez | PCP | | + +------+ + Encounter Details +--------+--------+ + + + | Date | Type | Department | Care Team | Description | +--------+--------+ + + + | 05/27/ | Travel | | | | | [...]
--- OUTSIDE RECORDS SUMMARY | ~2020-03-12 | XMS | Encounter Summary ---
Demographics + + + | Address | [address] | | | [place] [address] | + + + | Home Phone [...] Team Providers + +------+ + | Care Ob Scrub Tech Name | Role | Phone | + +------+ + | Meredith Sanchez | PCP | | + +------+ + Reason for Visit + +--------+ + | Reason | Onset | Comments | | | Date | | + +--------+ + | Pre-Transplant | 03/11/ | ITINERARY | | Evaluation | 2019 | | + +--------+ + Encounter Details +--------+ + + + + | Date | Type | Department | Care Team | Description | +--------+ + + + + | 03/11/ | Aligner Typewriter | [facility] | Sejal nails | 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 | | Clinics at S | N, DO [address]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) | | | | [facility] [address] | (Primary Dx) | | | | [address] [facility] | [place], [place] | | | | | Health and [facility], | [address] | | | | | [facility] | [phone] | | | | | [place], [place] | | | | | | [address] | | | | | | [phone] | | | +--------+ + + + [...] on filedocumented as of this encounter Results LIT - HLA VERIFICATION TYPING CLASS II (03/14/2019 11:27 AM PDT) + + | Specimen | + + | Blood - Blood | | (substance) | + + + + + + + | Performing | Address | City/State/Zipcode | Phone Number | | Organization | | | | + + + + + | [facility] - | [address] , | [place] [address] | | | IMMUNOGENETICS/TRANS | [address] [...] | [facility] - | [address] | [place] [address] | | | IMMUNOGENETICS/TRANS | [address] [...] | | | | kept in the [facility] | | | | | [...] | | | | | in the [facility] | | | | | | [...] | | | | | convenience at [phone] | | | | | | [phone]. | | | | + + + + + + | DISCLAIMER | This test was developed | | [facility] | | | | and its performance | | DIAGNOSTIC | | | | characteristics | | | | | | determined by the [facility] | | LABORATORIE | | | | [facility] Diagnostic | | S | [...] | | | | | (CLIA). The [facility] | | | | | | Diagnostics | | | | | | Laboratories are fully | | | | | | licensed by the state of | | | | | | [place] under CLIA and | | | | | | are accredited by the | | | | | | [employer] | | | | | | Pathologists (CAP). | | | | | | Chief Crna: | | | | | | Tayo [...] + + + + | [facility] | [address] | [place] [address] | | | DIAGNOSTIC | [address] [...] + + | [facility] - | [address] | [place] [address] | | | IMMUNOGENETICS/TRANS | [address] [...] | | | [place], [facility] [address] | | | | | | [phone]. | | | | | | Zeferino [...] [facility] | [address] | [place], [place] | | | UNIV PTH - INTFC | | [address] | | + + + + + [...] by | | | | | | [facility],[address] | | | | | | [place], [place] | | | | | | [address] | | | | | | [phone] Mobile[employer]. | | | | | | Zeferino [...] [facility] | [address] | [place], [place] | | | UNIV P[facility] - INTFC | | [address] | | + + + + + [...] | + + + + + | [facility] | [address] | [place] [address] | | | SERVICES, CORE | [address]ARK [...] + | [facility] - | [address] | [place] [address] | | | [place] | | | [...] + | [facility] - | [address] | [place] [address] | | | [place] | | | [...] | TESTING IS NOT INDICATED | | [place] | | | | OR USEFUL TO [...] | + + + + + | [facility] - | [address] | [place] [address] | | | [place] | | | [...] | | | [place], [facility] [address] | | | | | | [phone]. | | | | | | Zeferino [...] [facility] | [address] | [place], [place] | | | UN[facility] P[facility] - INTFC | | [address] | | + + + + + [...] [facility] | [address] | [place] [address] | | | SERVICES, | [address] [...] [facility] | [address] | [place] [address] | | | SERVICES, | [address] [...] for full anticoagulation: INR for Venous | [facility] | | Thromboembolism (2.0 - 3.0) INR INR for most | LABORATORY | | patients with mech. valves (2.5 - 3.5) INR | [facility] | + + + + + + + + | Performing | Address | City/State/Zipcode | Phone Number | | Organization | | | | + + + + + | [facility] | [address] | [place] [address] | | | LUZMARIA FAN | J[place] [...] | + + + + + | [facility] | [address] | [place] [address] | | | LUZ[facility]IA FAN | JASON [...] [facility] | [address] | [place] [address] | | | SERVICES, CORE | JASON [...] | + + + + + | [facility] | [address] | [place] [address] | | | SERVICES, CORE | JASON [...] + +---------+ + + + | [facility] | No Hemo | | [...] [facility] | [address] | [place] [address] | | | SERVICES, CORE | PARK [...] | + + + + + | [facility] | [address] | [place] [address] | | | SERVICES, CORE | JASON [...] [facility] | [address] | [place] [address] | | | MENG, LUZMARIA | JASON [...] [facility] | [address] | [place] [address] | | | SERVICES, CORE | [address] [...] | | | LABORATORY | | | IVORIAN | | | SERVICES, | | | [...] MDRD equation recommended by the National | [facility] | | Kidney Disease Education [...] | + + + + + | [facility] | [address] | [place] [address] | | | SERVICES, CORE | [address] | | | + + + + + documented in this encounter Visit Diagnoses + + | Diagnosis | + + | MDS (myelodysplastic syndrome) (HCC) - Primary Myelodysplastic syndrome, unspecified | + + documented in this encounter"
--- OUTSIDE RECORDS SUMMARY | ~2020-03-12 | XMS | Encounter Summary ---
Demographics + + + | Address | [address] | | | [place] [address] | + + + | Home Phone [...] Providers + +------+ + | Care Service Advisor Name | Role | Phone | + +------+ + | Meredith Sanchez | PCP | | + +------+ + Encounter Details +--------+ + + + + | Date | Type | Department | Care Team | Description | +--------+ + + + + | 04/14/ | Hospital | Radiation Oncology | | | | 2019 | Encounter | at [facility] [address] | | | | | | [address] | | | | | | [place], [address] [place] [address] | | | | | | [place], [place] | | | | | | [address] | | | | | | [phone] | | | +--------+ + + + [...]
--- OUTSIDE RECORDS SUMMARY | ~2020-03-12 | XMS | Encounter Summary ---
Demographics + + + | Address | [address] | | | [place] [address] | + + + | Home Phone [...] Team Providers + +------+ + | Care Teacher Of Family And Consumer Science Name | Role | Phone | + +------+ + | Meredith Sanchez | PCP | | + +------+ + Encounter Details +--------+ + + + + | Date | Type | Department | Care Team | Description | +--------+ + + + + | 03/22/ | Hospital | Radiation Oncology | | | | 2019 | Encounter | at [facility] [address] | | | | | | [address] | | | | | | [place], [address] [place] [address] | | | | | | [place], [place] | | | | | | [address] | | | | | | [phone] | | | +--------+ + + + [...]
--- OUTSIDE RECORDS SUMMARY | ~2020-03-12 | XMS | Encounter Summary ---
Demographics + + + | Address | [address] | | | [place] [address] | + + + | Home Phone [...] Providers + +------+ + | Care Superintendent Drilling And Production Name | Role | Phone | + +------+ + | Meredith Sanchez | PCP | | + +------+ + Encounter Details +--------+--------+ + + + | Date | Type | Department | Care Team | Description | +--------+--------+ + + + | 06/21/ | Travel | | | | | [...]
--- OUTSIDE RECORDS SUMMARY | ~2020-03-12 | XMS | Encounter Summary ---
Demographics + + + | Address | [address] | | | [place] [address] | + + + | Home Phone [...] Team Providers + +------+ + | Care Hse Specialist Name | Role | Phone | [...] | | stic | Jon Valverde | [facility] | | | | | syndrome) | Park | Health and | | | | | (HCC) | [place], [place] | Healing, | | | | | | [address] | [address] | | | | | | Phone: | [place], [place] | | | | | | [phone] | [address] | | | | | | Fax: | Phone: | | | | | | [phone] | [phone] | | | | | | | Fax: | | | | | | | [phone] | + +--------+ + + + + Encounter Details +--------+ + + + + | Date | Type | Department | Care Team | Description | +--------+ + + + + | 08/01/ | Clinical | Laboratory at [facility] | | Lab Draw | | 2020 | Support | [address] | | | | | Staff | [facility] | | | | | | and Healing, | | | | | | [address] | | | | | | [place], [place] | | | | | | [address] | | | | | | [phone] | | | +--------+ + + + [...] documented as of this encounter Progress Notes Jennifer Rogers RN - 08/01/2019 1:40 PM PSTRed lumen of [place] accessed per protocol. Spec imens drawn and sent to lab for processing. Red lumen cap is changed and is flushed per prot ocol and left accessed for treatment. Pt tolerated without incident. [facility]. documented in this encou nter Plan of Treatment Not on filedocumented as of this encounter Procedures + +--------+ + + + | Procedure Name | Priori | Date/Time | Associated Diagnosis | Comments | | | ty | | | | + +--------+ + + + | [facility] - MAGNESIUM, | Routin | 08/01/2019 | S/P cord blood | Results for this | | PLASMA | e | 1:59 PM | transplantation MDS | procedure are in the | | | | PST | (myelodysplastic | results section. | | | |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) | | + +--------+ + + + | [facility] - PHOSPHORUS, | Routin | 08/01/2019 | S/P cord blood | Results for this | | PLASMA | e | 1:59 PM | transplantation MDS | procedure are in the | | | | PST | (myelodysplastic | results section. | | | |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) | | + +--------+ + + + | [facility] - LDH TOTAL, | Routin | 08/01/2019 | S/P cord blood | Results for this | | PLASMA | e | 1:59 PM | transplantation MDS | procedure are in the | | | | PST | (myelodysplastic | results section. | | | |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) | | + +--------+ + + + | CBC AND AUTO DIFF | Routin | 08/01/2019 | S/P cord blood | Results for this | | | e | 1:59 PM | transplantation MDS | procedure are in the | | | | PST | (myelodysplastic | results section. | | | |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) | | + +--------+ + + + | VERITO-SEVILLA VIRUS | Routin | 08/01/2019 | S/P cord blood | Results for this | | PCR, PLASMA | e | 1:59 PM | transplantation | procedure are in the | | | | PST | | results section. | + +--------+ + + + | [facility] - COMPLETE | Routin | 08/01/2019 | S/P cord blood | Results for this | | METABOLIC SET | e | 1:59 PM | transplantation MDS | procedure are in the | | | | PST | (myelodysplastic | results section. | | | | | syndrome) ([facility]) | | + +--------+ + + + | [facility] CBC W | Routin | 08/01/2019 | S/P cord blood | Results for this | | DIFFERENTIAL | e | 1:59 PM | transplantation MDS | procedure are in the | | | | PST | (myelodysplastic | results section. | | | | | syndrome) ([facility]) | | + +--------+ + + + | CMV PCR | Routin | 08/01/2019 | S/P cord blood | Results for this | | QUANTITATION, PLASMA | e | 1:59 PM | transplantation MDS | procedure are in the | | | | PST | (myelodysplastic | results section. | | | | | syndrome) ([facility]) | | + +--------+ + + + | HUMAN HERPES VIRUS 6 | Routin | 08/01/2019 | S/P cord blood | Results for this | | PCR (PLASMA OR CSF) | e | 1:59 PM | transplantation | procedure are in the | | | | PST | | results section. | + +--------+ + + + documented in this encounter Results CBC AND AUTO DIFF (08/01/2019 1:59 PM PST) + + + + + + | Component | Value | Ref Range | Performed | Pathologist | | | | | At | Signature | + + + + + + | WHITE CELL | 4.27 | 3.50 - 10.80 | [facility] | [...] + + + + | HEMOGLOBIN | 10.5 (L) | 12.0 - 16.0 | [facility] | | | | | g/dL | LABORATORY | | | | | | SERVICES, | | | | | | [facility] + | | | | | | [facility]ALING | | + + + + + + | HEMATOCRIT | 33.6 (L) | 36.0 - 46.0 % | [facility] | | | | | | LABORATORY | | | | | | SERVICES, | | | | | | [facility] + | | | | | | [facility]ALING | | + + + + + + | MCV | 96.8 | 80.0 - 100.0 fL | [facility] | | | | | | LABORATORY | | | | | | SERVICES, | | | | | | [facility] + | | | | | | HEALING | | + + + + + + | MCHC | 31.3 (L) | 32.0 - 36.0 | [facility] | | | | | g/dL | LABORATORY | | | | | | SERVICES, | | | | | | [facility] | [facility] + | | | | | | HEALING | | + + + + + + | RDW SD | 71.0 (H) | 35.1 - 46.3 fL | [facility] | | | | | | LABORATORY | | | | | | SERVICES, | | | | | | [facility] | [facility] + | | | | | | HEALING | | + + + + + + | PLATELET | 96 (L) | 150 - 400 K/cu | [...] + + + + | NEUTROPHIL | 69.6 | 50.0 - 70.0 % | [facility] | | | % | | | LABORATORY | | | | | | SERVICES, | | | | | | [facility] | | [facility] + | | | | | | HEALING | | + + + + + + | LYMPHOCYTE | 14.8 (L) | 18.0 - 42.0 % | [...] + + + | EOS % | 3.0 | 1.0 - 3.0 % | [facility] [...] + + + + | NEUTROPHIL | 2.97 | 1.80 - 7.70 | [facility] | | | # | | K/cu mm | LABORATORY | | | | | | SERVICES, | | | | | | [facility] | [facility] + | | | | | | HEALING | | + + + + + + | NEUTROPHIL | 2.97Comment: Preliminary | 1.80 - 7.70 | [facility] [...] + + + | MONOCYTE # | 0.46 | 0.10 - 0.90 | [facility] | | | | | K/cu mm | LABORATORY | | | | | | SERVICES, | | | | | | [facility] | | [facility] + | | | | | | HEALING | | + + + + + + | EOS # | 0.13 | 0.00 - 0.50 | [facility] | [...] | + + + + + | [facility] | [address] | [place] [address] | | | [facility] | | | | | HEALTH [...] - [facility] | | | | [place] [address] | | | | | | [phone]. | | | | | | Zeferino [...] A: | | | | | | Ynvisible/CS | | | | + + + [...] [facility] | [address] | [place], [place] | | | [facility] | | [id number] | | + + + + + VERITO-SEVILLA VIRUS PCR, PLASMA (08/01/2019 1:59 PM PST) + + + + + + | Component | Value | Ref Range | Performed | Pathologist | | | | | At | Signature | + + + + + + | EBV QUANT | Undetected | Undetected, | [facility] | | | BY PCR, | | [...] we have completed a quantitative polymerase | [facility] | | chain reaction (PCR) based study [...] Act of 1988. | | | The [facility] is a fully licensed and/or accredited clinical laboratory | | | under CLIA, CAP, and the [facility]. References: 1) | | | Phong [...] | | real-time polymerase chain reaction. Transfusion 2008;48:7320-8941. | | | 4) Bassam BEARDEN, Genny CASAS, Félix I, van keshia Bij W, et al. | | | Frequent monitoring of Verito-Sevilla virus DNA load in unfractionated | | | whole blood is essential for early detection of posttransplant | | | lymphoproliferative disease in high-risk patients. Blood | | | 2001;97(5):3031-6969. | | + + + + + + + + | Performing | Address | City/State/Zipcode | Phone Number | | Organization | | | | + + + + + | [facility] | [address] | [place] [address] | | | DIAGNOSTIC | [address] [...] | | | characteristics determined by the [facility] | | | [facility]. It has not been cleared or approved by | | | the Food and Drug Administration. FDA approval is not required for | | | clinical use of this test, and therefore validation was done as | | | required under the requirements of the Clinical Laboratory Improvement | | | Act of 1988. The [facility] | | | Diagnostic Center is a fully licensed and/or accredited clinical | | | laboratory under CLIA, [facility], and the [facility]. | | + + + + + + + + | Performing | Address | City/State/Zipcode | Phone Number | | Organization | | | | + + + + + | [facility] | [address] | [place] [address] | | | DIAGNOSTIC | [address] [...] LABORATORY | [address] | [place] [address] | | | [facility] | | | | | HEALTH [...] LABORATORY | [address] | [place] [address] | | | SERVICES, [facility] | | | | HEALTH [...] LABORATORY | [address] | [place] [address] | | | SERVICES, [facility] | | | | | HEALTH [...] | | | LABORATORY | | | [facility] | | | SERVICES, | | | [...] LABORATORY | [address] | [place] [address] | | | SERVICES, [facility] | | | | | [...]
--- OUTSIDE RECORDS SUMMARY | ~2020-03-12 | XMS | Encounter Summary ---
Demographics + + + | Address | [address] | | | [place] [address] | + + + | Home Phone [...] Team Providers + +------+ + | Care Molding Machine Operator Helper Name | Role | Phone [...] | | | [facility] [place] | [place] [address] | [address] | | | | | BMT FOR RAEB | Phone: | Phone: | | | | | 2 | [phone] | [phone] | | | | | | Fax: | Fax: | | | | | | [phone] | [phone] | +--------+---------+ + + + + Encounter Details +--------+---------+ + + + | Date | Type | Department | Care Team | Description | +--------+---------+ + + + | 03/10/ | Office | [facility] | Sejal De La Torre | 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 | Clinics at S | N, DO [address]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) | | | | [facility] [address] | (Primary Dx) | | | | [place] for | [place], [place] | | | | | Health and Healing, | [address] | | | | | [address] | [phone] | | | | | [place], [place] | | | | | | [address] | | | | | | [phone] | | | +--------+---------+ + + + [...] Notes Sejal De La Torre DO - 03/10/2019 12:30 PM PDT BMT OUTPATIENT NOTE [facility] [address] [address] Reason for Visit Follow-up management of MDS-EB2 MDS (myelodysplastic syndrome) ([facility]) 11/30/2018 Initial Diagnosis MDS (myelodysplastic syndrome) ([facility]) 12/02/2018 - Chemotherapy [No matching medication found in this treatment plan] History of Present Illness: Nona Hopper is a 53 year old female with 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 The patient has a past medical history that includes uterine fibroids and fibroid removal from the left breast. Her hematogical history dates back to when she noted progressive fatigue. 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 She was working 6 days per week and [facility] she was working too hard. She left her job in August 2017 to give herself some time to tk chauhan. She had been to various physicians in [place] for fatigue without answers. In January 15, she developed fevers up to 104. She was tested for lyme disease, rheumatological c onditions which were all negative. She began to notice that her counts were dropping. She re located to [facility] from [place] to live with her niece in 06/2018. She saw a local PA in [facility] 07/2018 Meredith Sanchez who did further [...] and 1 ferret. She is applying for dis ability and not currently working. Her niece owns a [employer] and she helps out as needed. She has no healthy siblings. One brother in [place] is an alcoholic. Older sister lives in a n ursing home due to vascular dementia and severe diabetes. Since my last visit with iris Castellano he was admitted to the hospital 01/14-01/26 for zoster infection, her AZA has been held for e last 1 month due to ongoing issues with zoster lesions. She was initially treated with IV acyclovir from approx 01/10 through 01/16 then transitioned to valacyclovir 1g TID to complete an additional 7d then decreased to 500mg BID. Cord blood is only option and she consented t o kyle "[id number]: A Multicenter, Randomized, Phase III Registration Trial of Transpla ntation of NiCord, Ex Vivo Expanded, UCB-derived, Stem and Progenitor Cells, vs. Unmanipul ated UCB for Patients With Hematological Malignancies". Interm HX Nona is feeling good today. She underwent bone marrow biopsy today for screening for tyler saravia trial working toward cord blood transplant. She is currently D18 C3 aza started on 02/21-e nd 03/01 with local oncologist, Dr. Sequeira. No new herpetic lesions noted since transitio n to valtrex 500 mg BID 2 weeks ago. Feeling well otherwise. Eating and drinking well. Energ y level is great. She is enjoying the round-up and marched in a parade on Thursday. Review of Systems Constitutional: Negative for chills, [...] file Gets together: Not on file Attends yarsani service: Not on file Active member of club or organization: Not on file Attends meetings of clubs or organizations: Not on file Relationship status: Not on file Other Topics Concern Not on file Social History Narrative Lives with niece in [facility] PE: There were no vitals filed for this visit. Physical Exam Constitutional: She is oriented to [...] Laboratory Lab Results Component Value Date WBC 5.65 03/10/2019 HB 13.3 03/10/2019 HCT 39.9 03/10/2019 PLT 306 03/10/2019 MCV 89.9 03/10/2019 RDW 48.6 03/10/2019 Lab Results Lab Test Name Results Date/Time [...] a similar allele frequency around 50% VAF. 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 Currently C3D18. Patient Active Problem List Diagnosis MDS (myelodysplastic syndrome) (HCC) 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 The patient received 2 cycles of AZA wit h most recent marrow showing CR1. Her 3rd cycle was delayed 1 month due to recurrent zoster lesions. Currently D18C3. Consented to Anneida trial : [id number]: A Multicenter, Randomiz ed, Phase III Registration Trial of Transplantation of NiCord, Ex Vivo Expanded, UCB-deriv ed, Stem and Progenitor Cells, vs. Unmanipulated UCB for Patients With Hematological Maligna ncies. Screening bone marrow completed today the rest of her workup will be completed this w [place]. We discussed logistics of the trial including the 3 week expansion should she be random ized to the expanded cord arm. Dates for transplant will be set pending randomization. Herpes Zoster She was initially treated with IV acyclovir from approx 01/10 through 01/16 then transitioned to valacyclovir 1g TID to complete an additional 7d then decreased to 500mg BID for 2 days, then back up to 1g TID for new lesions. -Continue valacyclovir at 500mg BID (Moira TONY 2008) through day +365 and throughout p eriod of immunosuppression We will see her back to review screening for clinical trial and randomization of cord blood donors on Gamida trial. documented in this encounter Plan of Treatment Not on filedocumented as of this encounter Procedures + +--------+ + + + | Procedure Name | Priori | Date/Time | Associated Diagnosis | Comments | | | ty | | | | + +--------+ + + + | [facility] - URINE, | Routin | 03/10/2019 | MDS | Results for this | | MICROSCOPIC | e | 2:48 PM | (myelodysplastic | procedure are in the | | | | PDT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) | results section. | + +--------+ + + + documented in this encounter Results [facility] - URINE, MICROSCOPIC (03/10/2019 2:48 PM PDT) + + + + + + | Component | Value | Ref Range | Performed | Pathologist | | | | | At | Signature | + + + + + + | RED CELLS | 0 | 0 - 3 /hpf | [facility] | | | | | | LABORATORY | | | | | | SERVICES, | | | | | | [facility] + | | | | | | [facility]ALING | | + + + + + + | WHITE CELLS | 5 | 0 - 5 /hpf | [facility] | | | | | | LABORATORY | | | | | | SERVICES, | | | | | | [facility] | | [facility] + | | | | | | HEALING | | + + + + + + | BACTERIA | None | None /hpf | [facility] | | | | | | LABORATORY | | | | | | SERVICES, | | | | | | [facility] | [facility] + | | | | | | HEALING | | + + + + + + | YEAST (LAB) | None | None /hpf | [facility] | | | | | | LABORATORY | | | | | | SERVICES, | | | | | | [facility] | | [facility] + | | | | | | HEALING | | + + + + + + | SQUAMOUS | Moderate (A) | None, Few /hpf | [facility] | | | EPITHELIAL | | | LABORATORY | | | | | | SERVICES, | | | | | | [facility] | | | [facility] + | | | | | | HEALING | | + + + + + + | MUCOUS | None | None, Few /hpf | [facility] | | | | | | LABORATORY | | | | | | SERVICES, | | | | | | [facility] | | [facility] + | | | | | | HEALING | | + + + + + + | NON-SQUAMOU | None | None /hpf | [facility] | | | S EPITH | | | LABORATORY | | | | | | SERVICES, | | | | | | [facility] | | | [facility] + | | | | | | HEALING | | + + + + + + | HYALINE | 0 | 0 - 2 /lpf | [facility] | | | CASTS | | | LABORATORY | | | | | | SERVICES, | | | | | | [facility] | | | [facility] + | | | | | | HEALING | | + + + + + + | GRANULAR | 0 | 0 - 2 /lpf | [facility] | | | CASTS | | | LABORATORY | | | | | | SERVICES, | | | | | | [facility] | [facility] | | | | [facility] + | | | | | | HEALING | | + + + + + + | CELLULAR | 0 | <=0 /lpf | [facility] | | | CASTS | | | LABORATORY | | | | | | SERVICES, | | | | | | [facility] | | | | [facility] + | | | | | | HEALING | | + + + + + + | TRIPLE P04 | None | None, Few /hpf | [facility] | | | CRYSTALS | | | LABORATORY | | | | | | SERVICES, | | | | | | [facility] | | | | | [facility] + | | | | | | HEALING | | + + + + + + | CALCIUM | None | None, Few /hpf | [facility] | | | OXALATE | | | LABORATORY | | | [place] | | | SERVICES, | | | | | | [facility] | | | | [facility] + | | | | | | HEALING | | + + + + + + | URIC ACID | None | None, Few /hpf | [facility] | | | CRYSTALS | | | LABORATORY | | | | | | SERVICES, | | | | | | [facility] | | | | | | [facility] + | | | | | | HEALING | | + + + + + + | AMORPHOUS | None | None, Few /hpf | [facility] | | | CRYSTALS | | | LABORATORY | | | | | | SERVICES, | | | | | | [place] [facility] | | | | | | [...] [facility] | [address] | [place] [address] | | | SERVICES, [place] [facility] | | | | | HEALTH + HEALING | | | | + + + + + documented in this encounter Visit Diagnoses + + | Diagnosis | + + | MDS (myelodysplastic syndrome) (HCC) - Primary Myelodysplastic syndrome, unspecified | + + documented in this encounter
--- OUTSIDE RECORDS SUMMARY | ~2020-03-12 | XMS | Encounter Summary ---
Demographics + + + | Address | [address] | | | [place] [address] | + + + | Home Phone [...] Team Providers + +------+ + | Care Sheet Metal Foreman Name | Role | Phone | + +------+ + | Meredith Sanchez | PCP | | + +------+ + Encounter Details +--------+ + + + + | Date | Type | Department | Care Team | Description | +--------+ + + + + | 08/11/ | MyChart | [facility] | Sejal De La Torre | RE: Rash again | | 2020 | Encounter | Clinics at S | N, DO [address] | | | | | [facility] [address] | | | | | [place] for | [place], [place] | | | | | Health and Healing, | [address] | | | | | [address] | [phone] | | | | | [place], [place] | | | | | | [address] | | | | | | [phone] | | | +--------+ + + + [...]
--- OUTSIDE RECORDS SUMMARY | ~2020-03-12 | XMS | Encounter Summary ---
Demographics + + + | Address | [address] | | | [place] [address] | + + + | Home Phone [...] Team Providers + +------+ + | Care Aqueduct And Reservoir Keeper Name | Role | Phone | + +------+ + | Meredith Sanchez | PCP | | + +------+ + Encounter Details +--------+ + + + + | Date | Type | Department | Care Team | Description | +--------+ + + + + | 02/10/ | Telephone | [facility] | Sejal De La Torre | | | 2019 | | Clinics at S | N, DO [address] | | | | | [facility] [address] | | | | | [place] for | [place], [place] | | | | | Health and Healing, | [address] | | | | | [address] | [phone] | | | | | [place], [place] | | | | | | [address] | | | | | | [phone] | | | +--------+ + + + [...] this encounter Miscellaneous Notes Telephone Encounter - Rosa M Valenzuela, CARRIE - 02/10/2019 12:13 PM PDTCalled Nona back mandeepin jenny her call with questions about HLA typing of her niece. I informed her that unfortunately she has no donor options in her world book. We tested her niece Claudia Cota who unfortun ately did not result in a match but that information has not been relayed to Claudia. Nona will relay the information to her niece. I also sent a request to [facility] to set her up with an appointment with Dr. De La Torre on Feb 17 at 12:00 to discuss CBU options etc. I will email Nona that appointment time. Nona said if she has questions she'll either call the clinic or send an email. She stated understanding of all of the above and appreciated the call Rosa M Valenzuela RN documented in this encou nter Plan of Treatment Not on filedocumented as of this encounter Visit Diagnoses Not on filedocumented in this encounter"
--- OUTSIDE RECORDS SUMMARY | ~2020-03-12 | XMS | Encounter Summary ---
Demographics + + + | Address | [address] | | | [place] [address] | + + + | Home Phone [...] Author | [facility] | + + + | Organization | [facility] | + + + | Address | Unknown | + + + | Phone | Unavailable | + + + Support + + +---------+ + | Name | Relationship | Address | Phone | + + +---------+ + | Claudia Cota | ECON | Unknown | | + + +---------+ + Care Team Providers + +------+ + | Care Manager [employer] Name | Role | Phone | + +------+ + | Meredith Sanchez | PCP | | + +------+ + Encounter Details +--------+ + + + + | Date | Type | Department | Care Team | Description | +--------+ + + + + | 05/12/ | Pharmacy | Specialty Pharmacy | | | | 2019 | Visit | Services [address] | | | | | | [address] | | | | | | [place], [place] | | | | | | [address] | | | | | | [phone] | | | +--------+ + + + [...]
--- OUTSIDE RECORDS SUMMARY | ~2020-03-12 | XMS | Encounter Summary ---
Demographics + + + | Address | [address] | | | [place] [address] | + + + | Home Phone [...] Team Providers + +------+ + | Care Financial Services Professional Name | Role | Phone | + +------+ + | Meredith Sanchez | PCP | | + +------+ + Reason for Referral Diagnostic Testing (Routine) + +--------+ + + + + | Status | Reason | Specialty | Diagnoses / | Referred By | Referred To | | | | | Procedures | Contact | Contact | + +--------+ + + + + | New Request | | Radiology | Diagnoses | [place], | [place] | | | | | GVHD (graft | Sejal Meadows, | Health & | | | | | versus host | DO [address] | [employer] | | | | | disease) | Jon Valverde | [address] [facility] | | | | | ([facility]) | Melly Lujan | [address] | | | | | Procedures | [place], [place] | ROAD | | | | | CT CHEST | [address] | [place], [place] | | | | | EXPIRATORY | Phone: | [phone] | | | | | WO CONTRAST | [phone] | Phone: | | | | | | Fax: | [phone] | | | | | | [phone] | | + +--------+ + + + + Encounter Details +--------+ + + + + | Date | Type | Department | Care Team | Description | +--------+ + + + + | 03/01/ | Filtrose Crusher | [facility] | Sejal De La Torre | GVHD (graft versus | | 2019 | | Clinics at S | N, DO [address] | host disease) (HCC) | | | | [facility] [address] | (Primary Dx) | | | | [facility] for | [place], [place] | | | | | Health and Healing, | [address] | | | | | Building [address] | [phone] | | | | | [place], [place] | | | | | | [address] | | | | | | [phone] | | | +--------+ + + + [...] | | + +---------+--------+ + + | CT CHEST EXPIRATORY | Imaging | Routin | GVHD (graft versus | Expected: | | WO CONTRAST | | e | host disease) (HCC) | 03/01/2020, Expires: | | | | | | 03/31/2021 | + +---------+--------+ + + documented as of this encounter Visit Diagnoses + + | Diagnosis | + + | 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
--- OUTSIDE RECORDS SUMMARY | ~2020-03-12 | XMS | Encounter Summary ---
Demographics + + + | Address | [address] | | | [place] [address] | + + + | Home Phone [...] Providers + +------+ + | Care Manager Mall Name | Role | Phone | + +------+ + | Meredith Sanchez | PCP | | + +------+ + Encounter Details +--------+ + + + + | Date | Type | Department | Care Team | Description | +--------+ + + + + | 05/18/ | Pharmacy | Specialty Pharmacy | | | | 2019 | Visit | Services [address] | | | | | | [address] | | | | | | [place], [place] | | | | | | [address] | | | | | | [phone] | | | +--------+ + + + [...]
--- OUTSIDE RECORDS SUMMARY | ~2020-03-12 | XMS | Encounter Summary ---
Demographics + + + | Address | [address] | | | [place] [address] | + + + | Home Phone [...] Team Providers + +------+ + | Care Shotgun Shell Reprinting Unit Operator Name | Role | Phone | + +------+ + | Meredith Sanchez | PCP | | + +------+ + Encounter Details +--------+ + + + + | Date | Type | Department | Care Team | Description | +--------+ + + + + | 05/17/ | Pharmacy | Outpatient Retail | | | | 2019 | Visit | Clinic Pharmacy | | | | | | [address] | | | | | | [address] [place], [place] | | | | | | [address] | | | | | | [phone] | | | +--------+ + + + [...]
--- OUTSIDE RECORDS SUMMARY | ~2020-03-12 | XMS | Encounter Summary ---
Demographics + + + | Address | [address] | | | [place] [address] | + + + | Home Phone [...] Providers + +------+ + | Care Fire Prevention Specialist Name | Role | Phone | + +------+ + | Meredith Sanchez | PCP | | + +------+ + Reason for Visit + +--------+ + | Reason | Onset | Comments | | | Date | | + +--------+ + | Test Results | 07/27/ | | | | 2019 | | + +--------+ + Encounter Details +--------+ + + + + | Date | Type | Department | Care Team | Description | +--------+ + + + + | 07/27/ | Telephone | [facility] | Wil Sejal | Test Results | | 2020 | | Clinics at S | N, DO [address] | | | | | [place] [address] | | | | | [facility] for | [place], [place] | | | | | Health and Healing, | [address] | | | | | [address] | [phone] | | | | | [place], [place] | | | | | | [address] | | | | | | [phone] | | | +--------+ + + + [...] Telephone Encounter - Rebeca Portillo MA - 07/27/2019 11:25 AM PSTCalled Nona regarding the below, per MD. Patient stated appreciation for the follow up call. She has follow up at [facility] tomorrow 07/28/19. Rebeca Portillo [facility] Hematology Oncology Assistant Signal Maintainer [facility] P [phone] F [phone] elephone Encounter - Rebeca Simeon MA - 07/27/2019 10:53 AM PST----- Message from Sejal De La Torre DO sent at 06/30 11:09 AM PST ----- Regarding: CT chest looks better HI Rebeca Can you please let Ludmila know that her CT chest has improved. This is good news. We will co harpreet to follow her symptoms closely and wait on the rest of the tests to finalize that wer e ordered in the hospital Thanks and happy Thursday Annika documented in this encou ntjunaid Plan of Treatment Not on filedocumented as of this encounter Visit Diagnoses Not on filedocumented in this encounter"
--- OUTSIDE RECORDS SUMMARY | ~2020-03-12 | XMS | Encounter Summary ---
Demographics + + + | Address | [address] | | | [place] [address] | + + + | Home Phone [...] Providers + +------+ + | Care Fruit Tester Name | Role | Phone | + +------+ + | Meredith Sanchez | PCP | | + +------+ + Encounter Details +--------+ + + + + | Date | Type | Department | Care Team | Description | +--------+ + + + + | 06/16/ | Pharmacy | Pharmacy @ [facility] | | | | 2019 | Visit | [address] | | | | | | Reji Callahan Mailcode: | | | | | | [facility] | | | | | | and Healing, | | | | | | [address] | | | | | | [place], [place] | | | | | | [address] | | | +--------+ + + + [...]
--- OUTSIDE RECORDS SUMMARY | ~2020-03-12 | XMS | Encounter Summary ---
Demographics + + + | Address | [address] | | | [place] [address] | + + + | Home Phone [...] Team Providers + +------+ + | Care Fish Seiner Name | Role | Phone | + +------+ + | Meredith Sanchez | PCP | | + +------+ + Encounter Details +--------+--------+ + + + | Date | Type | Department | Care Team | Description | +--------+--------+ + + + | 02/12/ | Travel [...]
--- OUTSIDE RECORDS SUMMARY | ~2020-03-12 | XMS | Encounter Summary ---
Demographics + + + | Address | [address] | | | [place] [address] | + + + | Home Phone [...] Team Providers + +------+ + | Care Mild Disabilities Teacher Name | Role | Phone | + +------+ + | Meredith Sanchez | PCP | | + +------+ + Reason for Visit + +--------+ + | Reason | Onset | Comments | | | Date | | + +--------+ + | Medication | 07/19/ | Mag AWAD Tacro | | Adjustment | 2020 | | + +--------+ + Encounter Details +--------+ + + + + | Date | Type | Department | Care Team | Description | +--------+ + + + + | 07/19/ | Firer Watertender | [facility] | Sejal De La Torre | | | 2020 | | Clinics at S | N, DO [address] | | | | | [place] [address] | | | | | [facility] for | [place], [place] | | | | | Health and Healing, | [address] | | | | | [address] | [phone] | | | | | [place], [place] | | | | | | [address] | | | | | | [phone] | | | +--------+ + + + [...] Telephone Encounter - Tayo Osborne MA - 07/19/2019 4:05 PM Rip De La Torre MD co nfirmed that she spoke with the pt today to confirm the dose update. elephone Encounter - Sejal De La Torre D O - 07/19/2019 10:42 AM PSTI reviewed the labs from 07/18/19. Tacrolimus level is great. Keep same dose. Start oral Mag tablets BID as tolerated. Increase KCL 30 mEQ BID. documented in this encounter Plan of Treatment Not on filedocumented as of this encounter Visit Diagnoses Not on filedocumented in this encounter"
--- OUTSIDE RECORDS SUMMARY | ~2020-03-12 | XMS | Encounter Summary ---
Demographics + + + | Address | [address] | | | [place] [address] | + + + | Home Phone [...] + + | Author | [facility] | + + + | Organization | [facility] | + + + | Address | Unknown | + + + | Phone | Unavailable | + + + Support + + +---------+ + | Name | Relationship | Address | Phone | + + +---------+ + | Claudia Cota | ECON | Unknown | | + + +---------+ + Care Team Providers + +------+ + | Care Refund Specialist Name | Role | Phone | [...] | | | | | (HCC) | [place], [place] | [place], [place] | | | | | Procedures | [address] | [address] | | | | | [place] | Phone: | Phone: | | | | | OFFICE/OUTPT | [phone] | [phone] | | | | | | Fax: | Fax: | | | | | VISIT,VENKATESH,LE | [phone] | [phone] | | | | | VL IV | | | +--------+--------+ + + + + Encounter Details +--------+---------+ + + + | Date | Type | Department | Care Team | Description | +--------+---------+ + + + | 06/07/ | Office | [facility] | Apple Bergeron, | 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 | Clinics at S | PA [address]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) | | | | [place] [address] | (Primary Dx); S/P | | | | [facility] for | [place], [place] | cord blood | | | | Health and Healing, | [address] | transplantation | | | | Building [address] | [phone] | | | | | [place], [place] | | | | | | [address] | | | | | | [phone] | | | +--------+---------+ + + + [...] | Blood Pressure | 109/63 | 06/07/2019 9:27 AM | | | | | PST | | + + + + + | Pulse | 86 | 06/07/2019 9:27 AM | | | | | PST | | + + + + + | Temperature | 36.8 C (98.2 F) | 06/07/2019 9:27 AM | | | | | PST | | + + + + + | Respiratory Rate | 16 | 06/07/2019 9:27 AM | | | | | PST | | + + + + + | Oxygen Saturation | 97% | 06/07/2019 9:27 AM | | | | | PST | | + + + + + | Inhaled Oxygen | - | - | | | Concentration | | | | + + + + + | Weight | 60.8 kg (134 lb) | 06/07/2019 9:27 AM | | | | | PST [...] Instructions Patient Instructions Apple Bergeron PA - 06/07/2019 10:40 AM PST-Take your temperature regularly (3-4 x daily) and to call immediately for a temperature of 100.4 or greater. -We'll call you to adjust your Tacrolimus if necessary. -Start requip 0.25 mg at bedtime for restless leg. -I will try to figure out an alternative magnesium tablet for you to take. documented in this encounter Progress Notes Apple Bergeron PA - 06/07/2019 10:40 AM PSTFormatting of this note might be different f rom the original. 06/07/2019 [facility] Physician: Sejal De La Torre DO Local oncologist: Dr. Sequeira Hematologic Malignancy: MDS Conditioning regimen: FluCyTBI Date of transplant: 04/22/2019 Donor: CBU 1: [id number]/02 match, CBU 2: [id number]/02 match Research study: Kyle "[id number]: A Multicenter, Randomized, Phase III Registration Tr [...] howing dropping counts. --Jun. Moved to [place] ([facility]) -- 10/07/18 showed normal chemistries, [...] for D4-D7. 01/14-01/26/2019 admitted for zoster to [facility]. Vidaza held. 02/17/2019- seen at [facility] by Dr. De La Torre, no healthy siblings so cord blood is only option -consented to kyle "[id number]: A Multicenter, Randomized, Phase III Registration Tri nc of Transplantation of NiCord, Ex Vivo Expanded, UCB-derived, Stem and Progenitor Cells, vs. Unmanipulated UCB for Patients With Hematological Malignancies". She was randomized to SOC arm. --02/21-03/01 C3 aza.Tolerated well without complications. --04/15-05/18/2019 admitted to [facility] for planned flu/cy/tbi conditioned UCB on Gamida study (SOC arm). 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 Nona Hopper is a 53 y.o. female with hx of MDS, currently day +46, s/p Flu/cy/TBI co nditioned URD cord on gamida trial -on SOC arm. Interval History: Comes to clinic today for her routine scheduled visit. She is unaccompanied in clinic today . She is doing ok today. She felt better for 1-2 days after receiving blood on Thursday. She had more stamina, less weakness and more appetite. today she is feeling more sluggish again but not as severe as our previous visit. Eating remains challenging but she's taking in small meals and drinking ~1.5-2L/day. She c ontinues to have restless leg type sxs last night which made it more difficult for her to sl eep. She is having some nausea along with abdominal cramping before she has a BM. Stools are so ft. Headaches continue intermittently and she thinks they may be associated with the tacrolimus . She denies rash or fevers but did have low-grade temp of 100.3 Review of Systems: General: Denies fevers, chills, weight loss or sweats. +fatigue-improved after blood trans fusion ENT: +headaches-stable Denies changes in vision or [...] once daily. Take this medication through da + (07/31/2019) Indications: prevention of cytomegalovirus infection after [...] Vitals: BP Readings from Last 1 Encounters: 06/07/19 109/63 Pulse Readings from Last 1 Encounters: 06/07/19 86 Resp Readings from Last 1 Encounters: 06/07/19 16 Wt Readings from Last 1 Encounters: 06/07/19 60.8 kg (134 lb) Temp Readings from Last 1 Encounters: 06/07/19 36.8 C (98.2 F) (Oral) Body mass index is 24.01 [...] 72 hours (or 3 results) Recent Labs 06/07/19 0928 WBC 3.27* HB 8.2* HCT 24.7* PLT 75* NEUTROPERC 58.1 LYMPHPERC 12.5* MONOPERC 21.1* BASOPERC 0.3 EOSPERC 5.2* Chemistries: Last 72 Hours (or 3 results): Recent Labs 05/31/19 1029 06/03/19 0932 06/07/19 0928 NA 130* 131* 133* K 3.2* 3.3* 3.4 CL 96* 94* 100 BICARB 24 24 23 BUN 19 31* 16 CR 1.24* 1.13* 0.95 GLU 125* 118* 111* CA 9.1 9.1 9.2 AST 15 13 12 ALT 16 14 15 AP 108* 108* 92 TBILI 0.6 0.5 0.5 TP 6.7 7.0 6.4 ALB 3.5 3.7 3.5 ANIONGAP 10 13* 10 ANIONALBCOR 11 13* 11 Lab Results Component Value Date MG 1.2 06/07/2019 Hematology: Hematologic Malignancy: MDS Conditioning Regimen: FluCyTBI Research study: Kyle "[id number]: A Multicenter, Randomized, Phase III Registration Trial [...] 10 6 per kg Stem Cell Day: +46 Post-transplant: -Day +21 chimerism ordered per study: [...] time, there is no evidence of acute lffqw-oqrurs-tshx disease of the skin, gut, or liver. Prophylaxis/Treatment: Prophylaxis with tacrolimus and MMF per Gamida protocol -Tacrolimus startedD-3 (goal 5-15) -MMF 1 gm PO TID D-3 to D+35 (to stop on 06/21/2019) Acute GvHD Staging: Skin: stage 0 Gut: stage 0 Liver: stage 0 Overall Grade: 0 Annelavelle Calvin phase 3 (IRB 76441) Acute GVHD Staging Complete on study visit [...] mL diarrhea/day 2 25-50% BSA 3.1-6 mg/dL 1489-1305 mL diarrhea/day 3 >50% BSA Generalized erythroderma [...] months ofanticoagulationwith apixiban, end date 04/14/19. 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 -s/p Lisinopril 5 mg [...] on 05/31, [place] denied -Requip 0.25 mg qHS Depression:Stable, continue home SSRI. -Lexapro 20 mg [...] Lab Results Component Value Date CMVQUANTPCR Undetected 06/03/2019 CMVQUANTPCR Undetected 05/31/2019 CMVQUANTPCR Undetected 05/27/2019 CMVQUANTPCR Undetected 05/24/2019 Antifungal: Posaconazole for antifungal prophylaxis through day [...] when the tacrolimus trough is available. -Start bactrim at next visit. -Requip 0.25 mg qHS. -F/u remaining marrow studies. -Return to clinic 06/10 to see me, sooner prn. [facility] AT [address] Mailcode: [place] [address] documented in this encounter Plan of Treatment Not on filedocumented as of this encounter Results TACROLIMUS, WHOLE BLOOD (06/10/2019 10:28 AM PST) + +-------+ + + + [...] | Test performed by immunoassay using Hyatt Blade Balancer i2000. . | [facility] | | Samples [...] | + + + + + | [facility] | [address] [facility] | [place] [address] | | | SERVICES, SPECIAL | JASON GUTIERREZ | | | | IMM + COAG | | | | + + + + + CMV PCR QUANTITATION, PLASMA (06/10/2019 10:28 AM PST) + + + + + [...] 2 fold may not reflect true | [facility] | | biological changes and must [...] | | | characteristics determined by the [facility] | | | [facility]. It has not been cleared or approved by | | | the Food and Drug Administration. FDA approval is not required for | | | clinical use of this test, and therefore validation was done as | | | required under the requirements of the Clinical Laboratory Improvement | | | Act of 1988. The [facility] | | | Diagnostic Center is a fully licensed and/or accredited clinical | | | laboratory under CLIA, CAP, and the [facility]. | | + + + + + + + + | Performing | Address | City/State/[facility]ode | Phone Number | | Organization | | | | + + + + + | [facility] | [address] | [place] [address] | | | DIAGNOSTIC | [address] | | | | LABORATORIES | | | | + + + + + [facility] - LDH TOTAL, PLASMA (06/10/2019 10:28 AM PST) + +---------+ + + + | Component | Value | Ref Range | Performed | Pathologist | | | | | At | Signature | + +---------+ + + + | LD TOTAL, | 145 | <=250 U/L | [facility] | | [...] | + + + + + | [facility] | [address] | [place] [address] | | | SERVICES, [place] [facility] | | | | | HEALTH + HEALING | | | | + + + + + [facility] - COMPLETE METABOLIC SET (06/10/2019 10:28 AM PST) + +---------+ + + + | Component | Value | Ref Range | Performed | Pathologist | | | | | At | Signature | + +---------+ + + + | GLUCOSE, | 105 (H) | 70 - 99 mg/dL | [...] +---------+ + + + | CREATININE | 0.76 | 0.60 - 1.10 | [facility] | [...] | | | LABORATORY | | | [place] | | | SERVICES, | | | [...] + + + | TOTAL CO2, | 22 | 21 - 32 mmol/L | [facility] [...] | + + + + + | [facility] | [address] | [place] [address] | | | [facility], [place] [facility] | | | | | HEALTH + HEALING | | | | + + + + + [facility] - PHOSPHORUS, PLASMA (06/10/2019 10:28 AM PST) + +-------+ + + + [...] [facility] | [address] | [place] [address] | | | SERVICES, CENTER FOR | | | | | HEALTH + HEALING | | | | + + + + + [facility] - MAGNESIUM, PLASMA (06/10/2019 10:28 AM PST) + +---------+ + + + [...] + + + + + | [facility] | [address] | [place] [address] | | | [facility] [...]
--- OUTSIDE RECORDS SUMMARY | ~2020-03-12 | XMS | Encounter Summary ---
Demographics + + + | Address | [address] | | | [place] [address] | + + + | Home Phone | | + + + | Preferred Language | Unknown | + + + | Marital Status | Single | + + + | Druze Affiliation | NRP | + + + [...] Team Providers + +------+ + | Care Data Officer Name | Role | Phone | + +------+ + | Meredith Sanchez | PCP | | + +------+ + Encounter Details +--------+ + + + + | Date | Type | Department | Care Team | Description | +--------+ + + + + | 02/22/ | Results/Int | Pulmonary Function | | Dyspnea on exertion | | 2019 | erpretation | Lab at [facility] [address] | | (Primary Dx) | | | | [address] | | | | | | [address] | | | | | | [place], [place] | | | | | | [address] | | | | | | [phone] | | | +--------+ + + + [...] documented as of this encounter Progress Notes Chuy Medina MD - 02/23/2020 9:05 AM PDT Refer to PFT report. doc umented in this encounter Plan of Treatment Not on filedocumented as of this encounter Procedures + +--------+ + + + | Procedure Name | Priori | Date/Time | Associated Diagnosis | Comments | | | ty | | | | + +--------+ + + + | RI DIFFUSING | Routin | 02/25/2020 | Dyspnea on | | | CAPACITY | e | 8:42 AM | exertion | | | | | PDT | | | + +--------+ + + + | RI SPIROMETRY TEST | Routin | 02/25/2020 | Dyspnea on | | | | e | 8:42 AM | exertion | | | | | PDT | | | + +--------+ + + + | SPIROMETRY, PULM | Routin | 02/23/2020 | GVHD (graft versus | Results for this | | FUNCTION LAB | e | 9:33 AM | host disease) ([facility]) | procedure are in the | | | | PDT | | results section. | + +--------+ + + + documented in this encounter Visit Diagnoses + + | Diagnosis | + + | Dyspnea on exertion - Primary Other dyspnea and respiratory abnormality | + + documented in this encounter"
--- OUTSIDE RECORDS SUMMARY | ~2020-03-12 | XMS | Encounter Summary ---
Demographics + + + | Address | [address] | | | [place] [address] | + + + | Home Phone [...] Team Providers + +------+ + | Care Group Care Worker Name | Role | Phone | + +------+ + | Meredith Sanchez | PCP | | + +------+ + Reason for Visit + +--------+ + | Reason | Onset | Comments | | | Date | | + +--------+ + | Social Work Notes | 03/02/ | | | | 2018 [...] | | | | | | [facility] for | | | | | | Health and Healing, | | | | | | [address] | | | | | | [place], [place] | | | | | | [address] | | | | | | [phone] | | | +--------+ + + + [...] Notes Telephone Encounter - Elham Delcid - 03/02/2019 9:55 AM PDTSocial Work Specialist Brief I ntervention Identified needs: Post Transplant Lodging Interventions: Received an email from Christine adult equipment coordinator that lodging was sec ured in a kitchen room at [facility]. Called to notify the patient she was very happy with the pl an. Elham ANDERSON Account Retention RepresentativeHired Hand [address] [facility] Mailcode: [id number] [phone] documented in this encounte r Plan of Treatment Not on filedocumented as of this encounter Visit Diagnoses Not on filedocumented in this encounter"
--- OUTSIDE RECORDS SUMMARY | ~2020-03-12 | XMS | Encounter Summary ---
Demographics + + + | Address | [address] | | | [place] [address] | + + + | Home Phone [...] Team Providers + +------+ + | Care Product Evangelist Name | Role | Phone | + +------+ + | Meredith Sanchez | PCP | | + +------+ + Reason for Visit + +--------+ + | Reason | Onset | Comments | | | Date | | + +--------+ + | Medication | 06/03/ | IST: Tacrolimus | | Adjustment | 2019 | | + +--------+ + Encounter Details +--------+ + + + + | Date | Type | Department | Care Team | Description | +--------+ + + + + | 06/03/ | Telephone | Center for | Apple Bergeron, | Medication | | 2019 | | Hematologic | [place] [address] | Adjustment (IST: | | | | Malignancies at | [facility] [address] | Tacrolimus) | | | | [facility] | [place], [place] | | | | | [address] | [address] | | | | | Loop Mailcode: | [phone] | | | | | [id number] | | | | | | [address] [place], | | | | | | [place] [address] | | | | | | [phone] | | | +--------+ + + + [...] Telephone Encounter - Qasim Jensen MA - 06/03/2019 4:04 PM PST Result Follow-up CSA level: Lab Results Component Value Date FK506 4.6 06/03/2019 Nona will be contacted to change dose from 0.5 mg every morning and 0.5 mg every evening to 1 mg every morning and 0.5 mg every evening per Apple Bergeron starting on 06/03/2019 (gena e). Nona and/or her caregiver have been contacted and were able to provide verbal read back o f these instructions. Spoke with Nona Jensen CMA. documented in this e ncounter Plan of Treatment Not on filedocumented as of this encounter Visit Diagnoses Not on filedocumented in this encounter"
--- OUTSIDE RECORDS SUMMARY | ~2020-03-12 | XMS | Encounter Summary ---
Demographics + + + | Address | [address] | | | [place] [address] | + + + | Home Phone [...] Team Providers + +------+ + | Care Dry Cleaning Attendant Name | Role | Phone | + +------+ + | Meredith Sanchez | PCP | | + +------+ + Encounter Details +--------+ + + + + | Date | Type | Department | Care Team | Description | +--------+ + + + + | 07/14/ | Pharmacy | Pharmacy @ [facility] | | | | 2019 | Visit | [address] | | | | | | Reji Callahan Mailcode: | | | | | | [facility] | | | | | | and Healing, | | | | | | Building 2 | | | | | | [place], [place] | | | | | | [address] | | | +--------+ + + + [...]
--- OUTSIDE RECORDS SUMMARY | ~2020-03-12 | XMS | Encounter Summary ---
Demographics + + + | Address | [address] | | | [place] [address] | + + + | Home Phone [...] Providers + +------+ + | Care Chairman And Chief Executive Officer Name | Role | Phone | + +------+ + | Meredith Sanchez | PCP | | + +------+ + Encounter Details +--------+ + + + + | Date | Type | Department | Care Team | Description | +--------+ + + + + | 09/25/ | Telephone | [facility] | Sejal De La Torre | | | 2019 | | Clinics at S | N, DO [address] | | | | | [place] [address] | | | | | Reji Callahan [place] for | [place], [place] | | | | | Health and Healing, | [address] | | | | | Building 2 | [phone] | | | | | [place], [place] | | | | | | [address] | | | | | | [phone] | | | +--------+ + + + [...]
--- OUTSIDE RECORDS SUMMARY | ~2020-03-12 | XMS | Encounter Summary ---
Demographics + + + | Address | [address] | | | [place] [address] | + + + | Home Phone [...] Team Providers + +------+ + | Care Kettle Girl Name | Role | Phone | + +------+ + | Meredith Sanchez | PCP | | + +------+ + Encounter Details +--------+ + + + + | Date | Type | Department | Care Team | Description | +--------+ + + + + | 06/03/ | Pharmacy | Specialty Pharmacy | | | | 2019 | Visit | Services [address] | | | | | | [address] | | | | | | [place], [place] | | | | | | [address] | | | | | | [phone] | | | +--------+ + + + [...]
--- OUTSIDE RECORDS SUMMARY | ~2020-03-12 | XMS | Encounter Summary ---
Demographics + + + | Address | [address] | | | [place] [address] | + + + | Home Phone [...] Team Providers + +------+ + | Care Road Design Draftsperson Name | Role | Phone | + +------+ + | Meredith Sanchez | PCP | | + +------+ + Reason for Referral Consultation (Routine) + + + + + + + | Status | Reason | Specialty | Diagnoses / | Referred By | Referred To | | | | | Procedures | Contact | Contact | + + + + + + + | Authorized | Specialty | Dermatology | Diagnoses | Wil | [facility] | | | Services | | GVHD (graft | Sejal Meadows, | Chh1 [address] | | | Required | | versus host | DO [address] | | | | | disease) | [address]ver[address] | [facility] | | | | | ([facility]LY [facility]) | Melly | Health and | | | | | Procedures | [place], [place] | Healing, | | | | | CONSULT TO | [address] | Building 1, | | | | | DERM & DERM | Phone: | 16th Floor | | | | | SURGERY | [phone] | [place], [place] | | | | | eval & treat | Fax: | [address] | | | | | | [phone] | Phone: | | | | | | | [phone] | | | | | | | Fax: | | | | | | | [phone] | + + + + + + + Consultation (Routine) +--------+--------+ [...] | | disease) | Jon Valverde | [facility] | | | | | (FORM[facility]) | [address] | for Health | | | | | Procedures | [place], [place] | and Healing, | | | | | CONSULT TO | [address] | Building 1, | | | | | ADULT | Phone: | 11th Floor | | | | | OPHTHALMOLOG | [phone] | [facility] [place] | | | | | Y | Fax: | [address] | | | | | | [phone] | Phone: | | | | | | | [phone] | | | | | | | Fax: | | | | | | | [phone] | +--------+--------+ + + + + Encounter Details +--------+ + + + + | Date | Type | Department | Care Team | Description | +--------+ + + + + | 01/11/ | Telephone-S | [facility] | Sejal De La Torre | | | 2020 | cheduled | Clinics at S | N, DO [address] | | | | | [place] [address] | | | | | [address] [facility] for | [place], [place] | | | | | Health and Healing, | [address] | | | | | Building 2 | [phone] | | | | | [place], [place] | | | | | | [address] | | | | | | [phone] | | | +--------+ + + + [...] encounter Progress Notes Sejal De La Torre, - 01/12/2020 10:45 AM PDT 01/12/2020 - Day +266 post transplant Patient agrees to a telephone encounter for today's visit. They understand they may be resp onsible for the balance after insurance processes the claim. The visit took place via telephone with the provider located at the distant site of [facility]. T he patient stated they were located at the originating site of home and were in the state of [place] at the time of the telephone visit. The names of all additional persons participating in the telephone visit and their roles are: Nona and myself. Time spent on the call: 22 minutes The patients encounter was accomplished via a telephone call today due to COVID-19 precauti onary measures to limit the patient's unnecessary exposure. [facility] Physician: Sejal De La Torre DO Local oncologist: Dr. Sequeira Hematologic Malignancy: MDS Conditioning regimen: FluCyTBI Date of transplant: 04/22/2019 Donor: CBU 1: [id number]/02 match, CBU 2: [id number]/02 match Research study: Kyle "[id number]: A Multicenter, Randomized, Phase III Registration Tr [facility] of Transplantation of NiCord, Ex Vivo Expanded, [...] s howing dropping counts. --Jun. Moved to [place] ([facility]) -- 10/07/18 showed normal chemistries, Bilirubin 1.4, [...] for D4-D7. 01/14-01/26/2019 admitted for zoster to [facility]. Vidaza held. 02/17/2019- seen at [facility] by Dr. De La Torre, no healthy siblings so cord blood is only option -consented to kyle "[id number]: A Multicenter, Randomized, Phase III Registration Tri nd of Transplantation of NiCord, Ex Vivo Expanded, UCB-derived, Stem and Progenitor Cells, vs. Unmanipulated UCB for Patients With Hematological Malignancies". She was randomized to SOC arm. --02/21-03/01 C3 aza.Tolerated well without complications. --04/15-05/18/2019 admitted to [facility] for planned flu/cy/tbi conditioned UCB on Anneida [...] is available by phone for today's visit. Her face is better overall but not gone. Aft er tapering the prednisone from 20>15 mg 2 weeks ago, she developed some mild spread of the rash down her neck, arms on to her hands and legs. No itch. It is more dry. She states that it has improved over the last couple days. Now on face, neck and a little on arms and upper legs. BSA 50%. She thinks that sun exposure or recent soap change may have aggravated it. Felicita gaines also notes diarrhea lasting 1 day last week but this resolved without intervention. Her ey es have been bothering her. Intermittent redness noted alternating right and left. Left eye redness noted from broken vessel. She has not been using artifical tears. She was not able t o see dermatology or eye doctors locally because the office is closed. Her BP is still high SBP 160-170s. She is off HCTZ. HRs in the 70s. Reports no headaches. She reports a lot of [place] VID cases near her but she is being careful. No current nausea or vomiting. ROS negative unless listed above. Current Medication List Name Sig CARVEDILOL 6.25 MG TABLET Take 1 tablet by mouth [...] skin and rub in gently. Indications: skin tvwcp-zetvwz-gapm disease MAGNESIUM OXIDE-MAGNESIUM AMINO ACID CHELATE 133 [...] Indications: prevention of graft versus host disease TRIAMTERENE 37.5 MG-HYDROCHLOROTHIAZIDE 25 MG CAPSULE Take [...] cord (Day 0=04/22/19) She is enrolled in [facility] "[id number]: A Multicenter, Randomized, Phase III Registration Trial [...] with chimerisms and immune reconstitution panel per [facility] harris col, results show RIRI. Myeloid panel negative. PB 100% cord #2. 2. GVHD: Probable skin and upper/lower GI [...] I placed consults to be seen at [facility] in the next 2 weeks. She is willing to come t o [place]. -Prednisone: Continue 15mg every day, we discussed adding Jakafi if skin is not improved i n 2 weeks as steroid sparing agent. -Tacrolimus, continue with goal 5-10. Last level at goal on 01/05 at 5.8 -Hydrocortisone BID to facial rash. Kyle Simpson phase 3 (IRB 77424) Acute GVHD Staging Complete on study visit [...] mL diarrhea/day 2 25-50% BSA 3.1-6 mg/dL 2819-9540 mL diarrhea/day 3 >50% BSA Generalized erythroderma [...] Scoring: Day 100, 180, 270, 365 IRB 56838 Score 1(skin) Performance Scoring Not Present 0 [...] CMV PCR negative on 01/06/20 -Continue posaconazole while on HD steroids >20mg/day Vaccinations: Influenza vaccine administered 07/28/19 and Prevnar#1 administered on 07/28/19. Conjunctivitis, R>L: Resolved s/ erythromycin ointment QID x4 day. 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 Start artifical tears, preservative free. Will add restasis if not improving. 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 Increase coreg from 6.125 mg BID to 12.5 mg BID. 5. SAM Cr 1.1 improved form peak 1.4 likely related to HCTZ BP medication and tacrolimus. S topped HCTZ and started coreg with improvement 6. FEN: Labs reviewed and electrolytes WNL. Continue oral mag and potassium replacements. 7. GI: Risk of gastritis d/t steroids: Continue omeprazole 40 mg daily 6. Pysch: #Insomnia related to RLS: continue Requip 0.5 mg qHS #Depression:Stable, continue home SSRI. -Lexapro 20 mg PO daily 8. MSK: Deconditioning post transplant with right foot drop and leg weakness, R>L. This is improving overtime. 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
--- OUTSIDE RECORDS SUMMARY | ~2020-03-12 | XMS | Encounter Summary ---
Demographics + + + | Address | [address] | | | [place] [address] | + + + | Home Phone [...] Team Providers + +------+ + | Care Advertising Copywriter Name | Role | Phone | + +------+ + | Meredith Sanchez | PCP | | + +------+ + Encounter Details +--------+ + + + + | Date | Type | Department | Care Team | Description | +--------+ + + + + | 11/05/ | Document-Sc | [facility] [address] | Sejal De La Torre | | | 2019 | waqas | [address] | [address] | | | | | [place], [place] | [address] | | | | | [address] | [place], [place] | | | | | | [address] | | | | | | [phone] | | | | | | | [...] | + +--------+ + + + | OUTSIDE LAB - | | 11/05/2018 | | Results for this | | PATHOLOGY | | 12:00 AM | | procedure are in the | | | | PDT | | results section. | + +--------+ + + + documented in this encounter Results OUTSIDE LAB - PATHOLOGY (11/05/2018 12:00 AM PDT) + + + | Narrative | Performed At | + + + | | | + + + documented in this encounter Visit Diagnoses Not on filedocumented in this encounter"
--- OUTSIDE RECORDS SUMMARY | ~2020-03-12 | XMS | Encounter Summary ---
Demographics + + + | Address | [address] | | | [place] [address] | + + + | Home Phone [...] Team Providers + +------+ + | Care Social Work Coordinator Name | Role | Phone | + +------+ + | Meredith Sanchez | PCP | | + +------+ + Reason for Visit + +--------+ + | Reason | Onset | Comments | | | Date | | + +--------+ + | Medication | 07/07/ | | | management | 2020 | | + +--------+ + Encounter Details +--------+ + + + + | Date | Type | Department | Care Team | Description | +--------+ + + + + | 07/07/ | Telephone | [facility] | Sejal De La Torre | Medication | | 2020 | | Clinics at S | N, DO [address] [facility] | management | | | | [place] [address] | | | | | Reji Callahan [place] for | [place], [place] | | | | | Health and Healing, | [address] | | | | | Building 2 | [phone] | | | | | [place], [place] | | | | | | [address] | | | | | | [phone] | | | +--------+ + + + [...] this encounter Miscellaneous Notes Telephone Encounter - Mary Grace Smith RN - 07/07/2019 10:04 AM PSTInitial Assessment Nona Hopper's floral designer salesperson for today is patient, Nona Hopper, and her conta ct phone number for today 07/07 is: [phone]. Nona has been advised of when to [...] adjustment. Nona took her last dose at 930 (time) on 07/06 (date). documented in this enc ounter Plan of Treatment Not on filedocumented as of this encounter Visit Diagnoses Not on filedocumented in this encounter"
--- OUTSIDE RECORDS SUMMARY | ~2020-03-12 | XMS | Encounter Summary ---
Demographics + + + | Address | [address] | | | [place] [address] | + + + | Home Phone [...] Team Providers + +------+ + | Care Soa Engineer Name | Role | Phone | [...] + + | New Request | | Ophthalmology | Diagnoses | Adryan, | External | | | | | S/P cord | Cathy Gonzalez, | Order | | | | | blood | DIRECTOR OF ENTERPRISE STRATEGY [address] | | | | | | transplantat | [address] | | | | | | ion | [address] | | | | | | Procedures | [place], [place] | | | | | | CONSULT TO | [address] | | | | | | ADULT | Phone: | | | | | | OPHTHALMOLOG | [phone] | | | | | | Y | Fax: | | | | | | | [phone] | | + +--------+ + + + + Consultation (Routine) + +--------+ + + + + | Status | Reason | Specialty | Diagnoses / | Referred By | Referred To | | | | | Procedures | Contact | Contact | + +--------+ + + + + | Authorized | | Dermatology | Diagnoses | Adryan | Jean | | | | | S/P cord | Cathy Gonzalez, | [place] | | | | | blood | DIRECTOR OF ENTERPRISE STRATEGY [address] | Dermatology | | | | | transplantat | [address] | Referrals | | | | | ion | [address] | [address] | | | | | Procedures | [place], [place] | [facility] | | | | | CONSULT TO | [address] | [place] | | | | | DERM & DERM | Phone: | [phone] Phone: | | | | | SURGERY | [phone] | [phone] | | | | | | Fax: | Fax: | | | | | | [phone] | [phone] | + +--------+ + + + + Reason for Visit + + + | Reason | Comments | + + + | GVHD - | | | Dsqnj-ekrxhv-cygs | | | disease | | + + + Encounter Details +--------+ + + + + | Date | Type | Department | Care Team | Description | +--------+ + + + + | 12/28/ | Telephone-S | [facility] | Cathy Cornelius | GVHD - | | 2020 | cheduled | Clinics at S | M, DIRECTOR OF ENTERPRISE STRATEGY [address] | Trstm-laggst-eyiz | | | | [address] | disease | | | | Reji Callahan [place] for | [place], [place] | | | | | Health and Healing, | [address] | | | | | Building 2 | [phone] | | | | | [place], [place] | | | | | | [address] | | | | | | [phone] | | | +--------+ + + + [...] Instructions Patient Instructions Cathy Cornelius NP - 12/29/2019 10:45 AM PDT1. Call the BMT clini c ([phone]) or BMT person on-call ([phone]) for: Any temp > 100.4 Nausea/vomiting unresponsive to anti-nausea medications Significant diarrhea despite Imodium Inability to drink at least 2 liters of fluid daily You develop a rash Bleeding 2. Continue current dose of tacrolimus 3. Decrease prednisone to 15mg once daily 4. For your skin GVHD: -Continue to avoid lotions and creams with alcohol -Avoid sun/wind/other irritants -Stop triamcinolone cream and start hydrocortisone 2.5% twice daily to the face/neck (sent script to Yanelis Hernandez today) -I sent a referral to [facility] today 5. For allergies and itching: OK to continue Claritin 10mg once daily (if this is no longer effective, you can try Zyrtec, also over the counter) OK to benadryl as needed 6. For your eye symptoms: I have referred you to the [facility] 7. Follow up with labs twice monthly, phone visits with myself/Dr. De La Torre every two weeks a nd once monthly visits with Dr. Sequeira Stop potassium and decrease magnesium to 4 tablets daily (2 tablets twice daily) Electronic ally signed by Cathy Cornelius NP at 12/29/2019 11:42 AM PDT documented in this encounter Progress Notes Cathy Cornelius NP - 12/29/2019 10:45 AM PDT 12/29/19- Day +250 post transplant Patient agrees to a telephone encounter for today's visit. They understand they may be resp onsible for the balance after insurance processes the claim. The visit took place via telephone with the provider located at the distant site of [facility]. T he patient stated they were located at the originating site of home and were in the state of [place] at the time of the telephone visit. The names of all additional persons participating in the telephone visit and their roles are: Nona and myself. Time spent on the call: 33 min. The patients encounter was accomplished via a telephone call today due to COVID-19 precauti onary measures to limit the patient's unnecessary exposure. [facility] Physician: Sejal De La Torre DO Local oncologist: Dr. Sequeira Hematologic Malignancy: MDS Conditioning regimen: FluCyTBI Date of transplant: 04/22/2019 Donor: CBU 1: [id number]/02 match, CBU 2: [id number]/02 match Research study: Ruperto "[id number]: A Multicenter, Randomized, Phase III Registration Tr [...] s howing dropping counts. --Jun. Moved to [facility]) -- 10/07/18 showed normal chemistries, Bilirubin 1.4, [...] for D4-D7. 01/14-01/26/2019 admitted for zoster to [facility]. Vidaza held. 02/17/2019- seen at [facility] by Dr. De La Torre, no healthy siblings so cord blood is only option -consented to [facility]an[facility]elle "[id number]: A Multicenter, Randomized, Phase III Registration Tri ks of Transplantation of NiCord, Ex Vivo Expanded, UCB-derived, Stem and Progenitor Cells, vs. Unmanipulated UCB for Patients With Hematological Malignancies". She was randomized to SOC arm. --02/21-03/01 C3 aza.Tolerated well without complications. --04/15-05/18/2019 admitted to [facility] for planned flu/cy/tbi conditioned UCB on Jean[address] [...] available by phone for today's visit. She is overall feeling okay since her visit two weeks ago. She has noticed skin flares on and off that are exacerbated with different ir ritants including wind, sun, heat and mask wearing. She was unable to use any steroid cream due to the burning sensation on her skin. She started using vaseline two days ago and has no martha improvement. She does have new rash areas to her neck and chest but nothing beyond that. She does note occasional itchiness that improves with Benadryl. She does take Claritin for allergy prevent but has not noted much improvement in her symptoms related to this. She also notes watery eyes that coincide with her GVHD flares. She does have occasional light and wi nd sensitivity. She also notes occasional broken blood vessels in her right eye that is not present with vomiting or coughing or increased pressure. She has a good appetite and denies nausea or vomiting. She does have occasional loose stool s with 6-8 BMs daily (she continues to take 6-8 magnesium tablets daily). She denies abdomin al cramping. No liquid stools. No fevers or chills. She does continues to have tremors. ROS negative unless listed above. Current Medication [...] skin and rub in gently. Indications: skin hssrt-mszdbd-ivuv disease MAGNESIUM OXIDE-MAGNESIUM AMINO ACID CHELATE 133 [...] NO PE or VS d/t phone visit Assessment/Plan: 1. Hematology: History of MDS s/p FluCyTBI double cord (Day 0=04/22/19) She is enrolled in [facility]to "[id number]: A Multicenter, Randomized, Phase III Registration Trial [...] no prior mutations were det ected on Sprout. Her engraftment studies show 100% donor #2 (female) D+90. PB chimerism 07/21-100% cord #2 -BMBx completed on 11/03/19 with chimerisms and immune reconstitution panel per [facility]to harris col, results show RIRI. Myeloid panel [...] a raised, red rash t o her face, neck and scant rash to chest. No other symptoms of GVHD. -Prednisone: Decrease to 15mg every day, plan to decrease every two weeks as tolerated -Tacrolimus, continue with goal 5-10. Last level at goal on 12/22 at 5.9 -Hydrocortisone BID to facial rash, sent script to local pharmacy today Ruperto Simpson phase 3 (IRB 02738) Acute GVHD Staging Complete on study visit [...] mL diarrhea/day 2 25-50% BSA 3.1-6 mg/dL 7683-4196 mL diarrhea/day 3 >50% BSA Generalized erythroderma [...] Scoring: Day 100, 180, 270, 365 IRB 78415 Score 1(skin) Performance Scoring Not Present 0 [...] R>L: Resolved s/ erythromycin ointment QID x4 days 4. FEN: Labs reviewed and electrolytes WNL. [...] Patient Instructions 1. Call the BMT clinic ([phone]) or BMT person on-call ([phone]) for: Any temp > 100.4 Nausea/vomiting unresponsive to anti-nausea medications Significant diarrhea despite Imodium Inability to drink at least 2 liters of fluid daily You develop a rash Bleeding 2. Continue current dose of tacrolimus 3. Decrease prednisone to 15mg once daily 4. For your skin GVHD: -Continue to avoid lotions and creams with alcohol -Avoid sun/wind/other irritants -Stop triamcinolone cream and start hydrocortisone 2.5% twice daily to the face/neck (sent script to Yanelis Hernandez today) -I sent a referral to [facility] Dermatology today 5. For allergies and itching: OK to continue Claritin 10mg once daily (if this is no longer effective, you can try Zyrtec, also over the counter) OK to benadryl as needed 6. For your eye symptoms: I have referred you to the [facility] 7. Follow up with labs twice monthly, phone visits with myself/Dr. De La Torre every two weeks a nd once monthly visits with Dr. Sequeira Stop potassium and decrease magnesium to 4 tablets daily (2 tablets twice daily) Cathy Cornelius NP [facility] [address] [place] [address] documented in thi s encounter Plan of Treatment Not on filedocumented as of this encounter Visit Diagnoses + + | Diagnosis | + + | 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
--- OUTSIDE RECORDS SUMMARY | ~2020-03-12 | XMS | Encounter Summary ---
Demographics + + + | Address | [address] | | | [place] [address] | + + + | Home Phone [...] Team Providers + +------+ + | Care School Year Nanny Name | Role | Phone | + +------+ + | Meredith Sanchez | PCP | | + +------+ + Encounter Details +--------+--------+ + + + | Date | Type | Department | Care Team | Description | +--------+--------+ + + + | 01/13/ | Intake | [facility] | | | | 2019 | | [address] | | | | | | [address] [place], | | | | | | [place] [address] | | | +--------+--------+ + + + [...]
--- OUTSIDE RECORDS SUMMARY | ~2020-03-12 | XMS | Encounter Summary ---
Demographics + + + | Address | [address] | | | [place] [address] | + + + | Home Phone [...] Team Providers + +------+ + | Care Chip Frier Name | Role | Phone | + +------+ + | Meredith Sanchez | PCP | | + +------+ + Reason for Visit + + + | Reason | Comments | + + + | Follow-up visit | | + + + | Lab Draw | | + + + | Electrolyte | 8 gm mag | | Abnormalities | | + + + | Packed blood [...] | Hematology | Diagnoses | Wil, | [facility] Faculty | | | | 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 | Sejal Meadows, | [facility] [address] | | | | | (myelodyspla | DO [address] | | | | | stic | Jon Valverde | Center for | | | | | syndrome) | [address] | Health and | | | | | (HCC) | [place], [place] | Healing, | | | | | Procedures | [address] | [address] | | | | | [place] | Phone: | [place], [place] | | | | | OFFICE/OUTPT | [phone] | [address] | | | | | | Fax: | Phone: | | | | | VISIT,EST,LE | [phone] | [phone] | | | | | VL IV [facility] | | Fax: | | | | | EST PATIENT | | [phone] | | | | | LEVEL V | | | +--------+--------+ + + + + Encounter Details +--------+ + + + + | Date | Type | Department | Care Team | Description | +--------+ + + + + | 06/10/ | Hospital | [facility] | | | | 2019 | Encounter | Clinics at S | | | | | | [facility] [address] | | | | | | [address] [facility] | | | | | | Health and Healing, | | | | | | [address] | | | | | | [place], [place] | | | | | | [address] | | | | | | [phone] | | | +--------+ + + + [...] + + + | Blood Pressure | 129/57 | 06/10/2019 1:00 PM | | | | | PST | | + + + + + | Pulse | 68 | 06/10/2019 1:00 PM | | | | | PST | | + + + + + | Temperature | 37.1 C (98.7 F) | 06/10/2019 1:00 PM | | | | | PST | | + + + + + | Respiratory Rate | 16 | 06/10/2019 1:00 PM | | | | | PST | | + + + + + | Oxygen Saturation | 99% | 06/10/2019 1:00 PM | | | | | PST | | + + + + + | Inhaled Oxygen | - | - | | | Concentration | | | | + + + + + | Weight | 60.8 kg (134 lb) | 06/10/2019 10:30 AM | | | | | PST [...] + documented as of this encounter Progress Avelina Haider RN - 06/10/2019 10:20 AM PSTFormatting of this note might be different fro m the original. Assessment Patient arrives to clinic walking independently. Patient states she is feeling tired today. 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 Fever/Chills/Infection: No SOB / Cough: No Fatigue/Dizziness/Lightheaded: No Signs/Symptoms Bleeding: No Neuropathy: No Mucositis: No Nausea/Vomiting: Yes - intermittently, using PRN medications. Appetite: "Not good at all, I don't think I ate anything yesterday". Diarrhea/Constipation: Yes - 1-2 episodes yesterday, using PRN imodium. Pt reports cramping with urgent diarrhea. PO Fluid Intake: <2L Urinary Issues: No Rash/Skin/Edema: No Pain: No Order placed to give Zarxio PRN if ANC <1000 - none needed today for ANC 1.24 Lab [place] accessed per protocol. Good blood [...] mL NS. Patient tolerated procedure without difficulty. Gauze placed over sutures that keep poking through the dressing. They have been cut down. Supportive Care Magnesium Magnesium Sulfate 8 gm infused over 4 hours per supportive care orders for a magnesium leve l of 1.2. For infusion details, see MAR. Transfusion/Infusion 1L NS bolus given over 1 hour for low PO intake. Lab Results Component Value Date HCT 23.1 06/10/2019 HB 7.6 06/10/2019 Orders to transfuse PRBC product for a Hematocrit today as above. Type and cross for 1 uni t of PRBC was sent to Blood Bank. Each unit was checked by two RNs to confirm the unit numb er, ABO and Rh type printed on tag matched information on blood bag and to confirm crossmatc h compatibility. At the bedside, two RNs verified the correct patient using two unique iden tifiers, confirmed the unit number, ABO and Rh type printed on tag matched the information o n blood bag and confirmed crossmatch compatibility. Informed consent was verified. The patient was not premedicated. She received 1 unit of PRBCs per Provider s orders. T ransfusion was tolerated well without complication. Frequent vital signs were monitored thr oughout the transfusion and reviewed by me. For transfusion details, see ONC Lines & Transf usions doc flowsheet. Discharge Line care provided, see Flowsheet for details. Patient was instructed to check out at the f ront desk prior to leaving the clinic. Patient d/c d ambulatory in stable condition. Next appointment scheduled 06/13/19 at 10:10 am. Avelina Busby RN documented in this en counter Plan of Treatment Not on filedocumented as of this encounter Procedures + +--------+ + + + | Procedure Name | Priori | Date/Time | Associated Diagnosis | Comments | | | ty | | | | + +--------+ + + + | HB-LAB CROSSMATCH, | Routin | 06/10/2019 | S/P cord blood | Results for this | | IMMEDIATE SPIN | e | 11:17 AM | transplantation | procedure are in the | | | | PST | | results section. | + +--------+ + + + | [facility] - MAGNESIUM, | Routin | 06/10/2019 | MDS | Results for this | | PLASMA | e | 10:28 AM | (myelodysplastic | procedure are in the | | | | PST | syndrome) ([facility]) S/P | results section. | | | | | cord blood | | | | | | transplantation | | + +--------+ + + + | [facility] - PHOSPHORUS, | Routin | 06/10/2019 | MDS | Results for this | | PLASMA | e | 10:28 AM | (myelodysplastic | procedure are in the | | | | PST | syndrome) ([facility]) S/P | results section. | | | | | cord blood | | | | | | transplantation | | + +--------+ + + + | [facility] - LDH TOTAL, | Routin | 06/10/2019 | MDS | Results for this | | PLASMA | e | 10:28 AM | (myelodysplastic | procedure are in the | | | | PST | syndrome) ([facility]) S/P | results section. | | | | | cord blood | | | | | | transplantation | | + +--------+ + + + | CBC AND AUTO DIFF | Routin | 06/10/2019 | MDS | Results for this | | | e | 10:28 AM | (myelodysplastic | procedure are in the | | | | PST | syndrome) ([facility]) S/P | results section. | | | | | cord blood | | | | | | transplantation | | + +--------+ + + + | [facility] - COMPLETE | Routin | 06/10/2019 | MDS | Results for this | | METABOLIC SET | e | 10:28 AM | (myelodysplastic | procedure are in the | | | | PST | syndrome) ([facility]) S/P | results section. | | | | | cord blood | | | | | | transplantation | | + +--------+ + + + | [facility] CBC W | Routin | 06/10/2019 | MDS | Results for this | | DIFFERENTIAL | e | 10:28 AM | (myelodysplastic | procedure are in the | | | | PST | syndrome) ([facility]) S/P | results section. | | | | | cord blood | | | | | | transplantation | | + +--------+ + + + | CMV PCR | Routin | 06/10/2019 | MDS | Results for this | | QUANTITATION, PLASMA | e | 10:28 AM | (myelodysplastic | procedure are in the | | | | PST | syndrome) ([facility]) S/P | results section. | | | | | cord blood | | | | | | transplantation | | + +--------+ + + + | TACROLIMUS, WHOLE | Routin | 06/10/2019 | MDS | Results for this | | BLOOD | e | 10:28 AM | (myelodysplastic | procedure are in the | | | | PST | syndrome) ([facility]) S/P | results section. | | | | | cord blood | | | | | | transplantation | | + +--------+ + + + documented in this encounter Results PRODUCT - RED CELLS LEUKOREDUCED (06/10/2019 11:17 AM PST) + + + + + [...] + + + + | PRODUCT | [id number] | | [facility] | | | UNIT [...] + + + + | EXPIRATION | [id number] | | [facility] | | | DATE [...] + + + + | BLOOD | [id number] | | [facility] | | | PRODUCT [...] [facility] | [address] | [place] [address] | | | SERVICES, | [address] | | | | TRANSFUSION MEDICINE | | | | + + + + + CBC AND AUTO DIFF (06/10/2019 10:28 AM PST) + + + + + + | Component | Value | Ref Range | Performed | Pathologist | | | | | At | Signature | + + + + + + | WHITE CELL | 2.27 (L) | 3.50 - 10.80 | [facility] [...] + + + + | MCV | 86.8 | 80.0 - 100.0 fL | [facility] | | | | | | LABORATORY | | | | | | SERVICES, | | | | | | [facility] | [facility] + | | | | | | HEALING | | + + + + + + | MCHC | 32.9 | 32.0 - 36.0 | [facility] | | | | | g/dL | LABORATORY | | | | | | SERVICES, | | | | | | [facility] | | | | [facility] + | | | | | | HEALING | | + + + + + + | RDW SD | 54.1 (H) | 35.1 - 46.3 fL | [facility] | | | | | | LABORATORY | | | | | | SERVICES, | | | | | | [facility] | [facility] | | | | [facility] + | | | | | | HEALING | | + + + + + + | PLATELET | 94 (L) | 150 - 400 K/cu | [facility] | | | COUNT | | mm | LABORATORY | | | | | | SERVICES, | | | | | | [facility] | [facility] | | | [facility] + | | | | | | HEALING | | + + + + + + | MPV | 12.1 | 9.7 - 12.3 fL | [facility] [...] + + + + | NEUTROPHIL | 54.7 | 50.0 - 70.0 % | [facility] [...] + + + | EOS % | 7.0 (H) | 1.0 - 3.0 % | [...] + + + + | NEUTROPHIL | 1.24 (L) | 1.80 - 7.70 | [facility] | | | # | | K/cu mm | LABORATORY | | | | | | SERVICES, | | | | | | [facility] | | | | | | [facility] + | | | | | | HEALING | | + + + + + + | NEUTROPHIL | 1.24 (L)Comment: | 1.80 - 7.70 | [facility] [...] + + + + | LYMPHOCYTE | 0.36 (L) | 1.00 - 4.80 | [facility] | | | # | | K/cu mm | LABORATORY | | | | | | SERVICES, | | | | | | [facility] | | | | | | [facility] + | | | | | | HEALING | | + + + + + + | MONOCYTE # | 0.47 | 0.10 - 0.90 | [facility] | | | | | K/cu mm | LABORATORY | | | | | | SERVICES, | | | | | | [facility] | | | | | | [facility] + | | | | | | HEALING | | + + + + + + | EOS # | 0.16 | 0.00 - 0.50 | [facility] | [...] | included in the neutrophil count. | [facility] | | | HEALTH + | | | HEALING | + + + + + + + + | Performing | Address | City/State/Zipcode | Phone Number | | Organization | | | | + + + + + | [facility] | [address] | [place] [address] | | | [facility] | | | | [...] (L) | 1.6 - 2.6 mg/dL | [facility] | | | [facility] | | | LABORATORY | | | [...] LABORATORY | [address] | [place] [address] | | | [facility] | | | | [...] | + + + + + | [facility] | [address] | [place] [address] | | | SERVICES, [place] [facility] | | | | | HEALTH [...] | | | LABORATORY | | | [place] | | | SERVICES, | | | [...] MDRD equation recommended by the National | [facility] | | Kidney Disease Education Program. Estimated [...] | + + + + + | [facility] | [address] | [place] [address] | | | SERVICES, [place] [facility] | | | | | HEALTH [...] | + + + + + | [facility] | [address] | [place] [address] | | | [facility] | | | | [...] may not reflect true | [facility] | | biological changes and must [...] | laboratory under CLIA, CAP, and the [facility]. | | + + + + + + + + | Performing | Address | City/State/Zipcode | Phone Number | | Organization | | | | + + + + + | [facility] | [address] | [place] [address] | | | DIAGNOSTIC | [address] | | | | LABORATORIES | | | | + + + + + TACROLIMUS, WHOLE BLOOD (06/10/2019 10:28 AM PST) [...] | Test performed by immunoassay using [employer]att Water Jet Loom Fixer i2000. . | [facility] | | Samples [...] | + + + + + | [facility] | [address] | [place] [address] | | | SERVICES, SPECIAL | JASON [...] in water IV | New Bag | 06/10/20 | 2 g | | | | (RTU) 2 g 2 g, intravenous, | | 19 10:50 | | | | | ONCE, 1 dose, Thu06/10/19 at | | AM PST | | | | | 1030 | | | | | | + +---------+ +------+------+------+ +---+---+ | | | +---+---+ + +---------+ +-----+---+---+ | magnesium sulfate in water IV | New | 06/10/20 | 2 g | | | | (RTU) 2 g 2 g, intravenous, | | 19 11:31 | | | | | ONCE, 1 dose, Thu06/10/19 at | | AM PST | | | | | 1200 | | | | | | + +---------+ +-----+---+---+ +---+---+ | | | +---+---+ + +---------+ +-----+ +---+ | magnesium sulfate in water IV | New Bag | 06/10/20 | 4 g | 50 mL/hr | | | (RTU) 4 g 4 g, intravenous, | | 19 12:42 | | | | | ONCE, 1 dose, Thu06/10/19 at | | PM PST | | | | | 1145 | | | | | | + +---------+ +-----+ +---+ +---+---+ | | | +---+---+ + +---------+ + +---+---+ | sodium chloride (NS) 0.9 % | New Bag | 06/10/20 | 1,000 mL | | | | bolus 1,000 mL 1,000 mL, | | 19 10:51 | | | | | intravenous, NEEDED, Starting | | AM PST | | | | | 06/10/19 at 1050, Until Fri | | | | | | | 06/10/19 at 2134, decreased po | | | | | | | intake, dizziness | | | | | | + +---------+ + +---+---+ +---+---+ | | | +---+---+ documented in this encounter
--- OUTSIDE RECORDS SUMMARY | ~2020-03-12 | XMS | Encounter Summary ---
Demographics + + + | Address | [address] | | | [place] [address] | + + + | Home Phone [...] Team Providers + +------+ + | Care Staff Scientist Name | Role | Phone | + +------+ + | Meredith Sanchez | PCP | | + +------+ + Encounter Details +--------+ + + + + | Date | Type | Department | Care Team | Description | +--------+ + + + + | 08/12/ | Pharmacy | Pharmacy @ [facility] | | | | 2019 | Visit | [address] | | | | | | [address] Mailcode: | | | | | | [facility] | | | | | | and Healing, | | | | | | [address] | | | | | | [place], [place] | | | | | | [address] | | | +--------+ + + + [...]
--- OUTSIDE RECORDS SUMMARY | ~2020-03-12 | XMS | Encounter Summary ---
Demographics + + + | Address | [address] | | | [place] [address] | + + + | Home Phone [...] Team Providers + +------+ + | Care Job Molder Name | Role | Phone | + +------+ + | Meredith Sanchez | PCP | | + +------+ + Encounter Details +--------+ + + + + | Date | Type | Department | Care Team | Description | +--------+ + + + + | 07/27/ | Network Associate | [facility] | Sam Baron FNP | MDS (myelodysplastic | | 2020 | | Clinics at S | [address]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) | | | | [facility] [address] | Melly Lujan [place], | (Primary Dx); S/P | | | | [address] [facility] for | [place] [address] | cord blood | | | | Health and Healing, | [phone] | transplantation | | | | [address] | | | | | | [place], [place] | | | | | | [address] | | | | | | [phone] | | | +--------+ + + + [...] Hematopathology | | | | | | FellowJokulwant | | | | | | MD Marta - | | | | | | HematopathologistPatholo | | | | | | , [facility] & | | | | | | [facility] | | | | | | electronic [...] report | | | | | | ([id number]). | | | | | | MOLECULAR STUDIES: | | | | | | Performed, see separate | | | | | | report | | | | | | ([id number]).NGS | | | | | | [employer] [...] | PATHOLOGY | | | | (initials [facility]) and | | | | | | medical record number | | | | | | [id number]. 2 mL EDTA, 2 | | | [...] | + + + + + | [facility] DEPARTMENT OF | [address] | [place] [address] | | | PATHOLOGY | [address] | | | + + + + + | [facility] | [address] | [place] [address] | | | [facility] [facility] | | | | | HEALTH [...] clinical | | | | | | rehab trainer. | | | | + + + [...] | | | | determined by the [facility] | | LABORATORIE | | [...] | | | | | (CLIA). [facility] | | | | | | Diagnostics | | | | | | Laboratories are fully | | | | | | licensed by the state of | | | | | | [place] under CLIA and | | | | | | are accredited by the | | | | | | [employer] [place] | | | | | | Pathologists (CAP). | | | | | | Agriculture Mechanic: | | | | | | Tayo Singletary, | | | | | | M.Hunter., | | | | | | Ph.D.Electronically | | | | | | reviewed and signed | | | | | | by:Soumya Garcia, PhD, | | | | | | FACMGClinical | | | | | | Cytogeneticist08/03/2019 | | | | | | at 5:12 PMReviewed and | | | | | | electronically signed by | | | | | | SOUMYA CINTRON, | | | | | | MD,FACMG08/03/2019 5:42 PM | | | | + + + + + + | Cytogenetic | Normal | | [facility] | | | s Bone | | [...] + + + + | [facility] | [address] | [place] [address] | | | DIAGNOSTIC | [address] [...] | [facility] | | | ION | [id number] #1 | | DIAGNOSTIC | | | | Gender: MaleDonor #2 | | | | | | Name/ID: NMDP | | LABORATORIE | | | | [id number] #2 | | S | | | | Gender: FemaleDate of | | | | | | Transplant: 04/22/2019No | | | | | | Host Cells Detected, | | | | | | 100% Donor #2 (NMDP | | | | | | [phone]); No | | | | | | Detectable Donor #1 | | | | | | ([facility] [id number])PCR | | | | | | based [...] | | | | | | loci [id number], [id number], | | | | | | W8V369, CSF1PO, D4R3474, | | | | | | THO1, H06K105, V47Q850, | | | | | | [id number], [id number], vWA, | | | | | | TPOX, D18S51, D0H576, | | | | | | FGA [...] | | | | determined by the [facility] | | LABORATORIE | | [...] | | | | | (CLIA). [facility] | | | | | | Diagnostics | | | | | | Laboratories are fully | | | | | | licensed by the state of | | | | | | [place] under CLIA and | | | | | | are accredited by the | | | | | | [employer] [place] | | | | | | Pathologists (CAP). | | | | | | Agriculture Mechanic: | | | | | | Tayo [...] + + + | [facility] | [address] | [place] [address] | | | DIAGNOSTIC | [address] [...]
--- OUTSIDE RECORDS SUMMARY | ~2020-03-12 | XMS | Encounter Summary ---
Demographics + + + | Address | [address] | | | [place] [address] | + + + | Home Phone [...] Team Providers + +------+ + | Care Blow Down Helper Name | Role | Phone | + +------+ + | Meredith Sanchez | PCP | | + +------+ + Encounter Details +--------+ + + + + | Date | Type | Department | Care Team | Description | +--------+ + + + + | 12/20/ | Hospital | UNLRELATED BMT | | | | 2019 | Encounter | PROGRAM [address] | | | | | | [address] | | | | | | [place], [place] | | | | | | [address] | | | +--------+ + + + [...]
--- OUTSIDE RECORDS SUMMARY | ~2020-03-12 | XMS | Encounter Summary ---
Demographics + + + | Address | [address] | | | [place] [address] | + + + | Home Phone [...] Providers + +------+ + | Care Public Health Worker Name | Role | Phone | + +------+ + | Meredith Sanchez | PCP | | + +------+ + Encounter Details +--------+ + + + + | Date | Type | Department | Care Team | Description | +--------+ + + + + | 11/16/ | Telephone-S | [facility] | Sejal De La Torre | | | 2020 | cheduled | Clinics at S | N, DO [address] | | | | | [facility] [address] | | | | | [facility] [place] for | [place], [place] | | | | | Health and Healing, | [address] | | | | | [address] | [phone] | | | | | [place], [place] | | | | | | [address] | | | | | | [phone] | | | +--------+ + + + [...] Notes Sejal De La Torre DO - 2019 1:00 PM PDT 11/17/19- Day + post transplant Patient agrees to a telephone encounter for today's visit. They understand they may be resp onsible for the balance after insurance processes the claim. The visit took place via telephone with the provider located at the distant site of [facility]. T he patient stated they were located at the originating site of home and were in the state of [place] at the time of the telephone visit. The names of all additional persons participating in the telephone visit and their roles are: Nona and myself. Time spent on the call: 25 min. The patients encounter was accomplished via a telephone call today due to COVID-19 precauti onary measures to limit the patient's unnecessary exposure. [facility] Physician: Sejal De La Torre DO Local oncologist: Dr. Sequeira Hematologic Malignancy: MDS Conditioning regimen: FluCyTBI Date of transplant: 04/22/2019 Donor: CBU 1: [id number]/02 match, CBU 2: [id number]/02 match Research study: Ruperto "[id number]: A Multicenter, Randomized, Phase III Registration Tr [...] howing dropping counts. --Jun. Moved to [place] ([facility]) -- 10/07/18 showed normal chemistries, [...] for D4-D7. 01/14-01/26/2019 admitted for zoster to [facility]. Vidaza held. 02/17/2019- seen at [facility] by Dr. De La Torre, no healthy siblings so cord blood is only option -consented to jeanlavelle "[id number]: A Multicenter, Randomized, Phase III Registration Tri ok of Transplantation of NiCord, Ex Vivo Expanded, UCB-derived, Stem and Progenitor Cells, vs. Unmanipulated UCB for Patients With Hematological Malignancies". She was randomized to SOC arm. --02/21-03/01 C3 aza.Tolerated well without complications. --04/15-05/18/2019 admitted to [facility] for planned flu/cy/tbi conditioned UCB on Ruperto study (SOC arm). Main complications included Strep [...] been tolerating gradual taper. Interval History: Nona restarted her triametere HCTZ for increased BP last week with imp roved BP. She has daily minor fatigue which is intermittent. She is now more than six month s out from her transplant. Overall feeling well. 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 No active areas. No other areas of rash. No itching. Her eyes have improved. No infectio us symptoms, fevers or chills. No current s/s of GVHD. Appetite is good. Weight is stable. Reports no diarrhea, no nausea or vomiting. Review of Systems Constitutional: Negative for chills, [...] 2 tablets by mouth on ce daily. Indications: low amount of potassium in the blood PREDNISONE 10 MG TABLET Take 3 tablets by mouth once daily. As of 11/17/19 take 20 mg daily alternating with 15 mg every other day. TACROLIMUS 0.5 MG CAPSULE As of 11/03/19: Current dose is 0.5mg once daily. On days of your blood draws, do not take your morning dose but bring it with you to take after your blood d maty. Indications: GvHD. Indications: prevention of graft versus [...] Ok to use on face twice daily TRIAMTERENE 37.5 MG-HYDROCHLOROTHIAZIDE 25 MG CAPSULE Take 1 capsule by mouth once daily. VALACYCLOVIR 500 MG TABLET Take 1 tablet by mouth two times daily. Vitals: NO PE performed Laboratory Results: Labs on 11/15 (outside-[facility]) show LDH 237, Chem wnl Cr 0.8, LFTs wnl, WBC 6, Hb 10. 9, Plt 123 Tacrolimus 5.6 CMV PCR negative CBC with diff last 72 hours (or 3 results) Recent Labs 11/03/19 0736 WBC 5.01 HB 9.8* HCT 32.1* PLT 110* Chemistries: Last 72 Hours (or 3 results) - Refreshable Invalid input(s): EGFRNONAFRCR Assessment/Plan: 1. Hematology: History of MDS s/p FluCyTBI double cord (Day 0=04/22/19) She is enrolled in indicoida "[id number]: A Multicenter, Randomized, Phase III Registration Trial [...] with chimerisms and immune reconstitution panel per indicoida [facility], results show RIRI. Myeloid panel [...] GVHD. -Prednisone: Continue 20mg once daily (10/12- 11/16) BSA improved to <10% on 11/16. Reduce to 15 mg alt with 20 mg every other day. -Tacrolimus, continue with goal 5-10. Last level at goal -Hydrocortisone BID to facial rash. Ruperto Simpson phase 3 (IRB 70590) Acute GVHD Staging Complete on study visit [...] mL diarrhea/day 2 25-50% BSA 3.1-6 mg/dL 0588-5082 mL diarrhea/day 3 >50% BSA Generalized erythroderma [...] Scoring: Day 100, 180, 270, 365 IRB 69020 Score 1(skin) Performance Scoring Not Present 0 [...] Patient Instructions 1. Call the BMT clinic ([phone]) or BMT person on-call ([phone]) for: Any temp > 100.4 Nausea/vomiting unresponsive to anti-nausea medications Significant diarrhea despite Imodium Inability to drink at least 2 liters of fluid daily You develop a rash Bleeding 2. -We'll call you to adjust your Tacrolimus if necessary. 3. Reduce prednisone to 15 mg alt 20mg every other day 4. Continue hydrocortisone twice daily to your face prn 5. We will schedule VV in 2 weeks and labs locally Sejal De La Torre DO [employer] [facility] [facility] Sean Matamoros MA - 2019 1:00 PM PDTPt name and confirmed Speaking directly with pt: Yes If no, then to whom and why: Directive Status Reviewed: Yes If no, explain: Allergies Reviewed: Yes If no, explain: Medications Reviewed: Yes If no, explain: Pharmacy Reviewed: Yes If no, explain: Pt reported vitals obtained: No Pt questions for provider: none Patient informed that they will be contacted within 20 minutes + or - of their scheduled ap pt time. Pt given instruction to call back for any questions or issues. documented in this encou nter Plan of Treatment Not on filedocumented as of this encounter Procedures + +--------+ + + + | Procedure Name | Priori | Date/Time | Associated Diagnosis | Comments | | | ty | | | | + +--------+ + + + | LAB REPORTS | | 11/11/2019 | | Results for this | | | | 12:00 AM | | procedure are in the | | | | PDT | | results section. | + +--------+ + + + documented in this encounter Results LAB REPORTS (11/11/2019 12:00 AM PDT) + + + | [...]
--- OUTSIDE RECORDS SUMMARY | ~2020-03-12 | XMS | Encounter Summary ---
Demographics + + + | Address | [address] | | | [place] [address] | + + + | Home Phone [...] Team Providers + +------+ + | Care Chief Deputy Coroner Name | Role | Phone | + +------+ + | Meredith Sanchez | PCP | | + +------+ + Reason for Visit + +--------+ + | Reason | Onset | Comments | | | Date | | + +--------+ + | Care Coordination | 04/11/ | CVC placement | | | 2018 | | + +--------+ + Encounter Details +--------+ + + + + | Date | Type | Department | Care Team | Description | +--------+ + + + + | 04/11/ | Telephone | [facility] | Twila, | Care Coordination | | 2019 | | Interventional | Hoa RN [address] | (CVC placement) | | | | [place] [address] | | | | | [address] | [place], [place] | | | | | Mailcode: [id number] | [address] | | | | | [facility] | | | | | | [place], [place] | | | | | | [address] | | | | | | [phone] | | | +--------+ + + + [...] Telephone Encounter - Hoa Mattson RN - 04/13/2019 9:44 AM PDTLACY Rhodes also recommends 48 hr hold of Eliquis/Apixaban elephone Encounter - Hoa Mattson RN - 04/11/2019 11:14 AM P DTSpoke with pt about CVC placement Scheduled for: 04-15-19 The schedulers will call the pt 1 business day prior to treatment date with admission time. IR Questionnaire: Contrast allergy no Blood thinners yes Apixaban/Eliquis pt reports on for bilateral arm dvt's Dr De La Torre advise d her to hold 48 hours prior to procedure. Clarified last dose is on 04-13-19 am. Diabetic no Renal problems no Organ transplant no Sleep apnea no CPAP no Isolation precautions no Pre procedural instructions given: Nothing to eat 8 hours prior to procedure and sips of clears with am medications. Take am meds as normal. Plan on being admitted to 14 K after. Recovery process and possible side effects. Letter of instructions with map and PCU visitor guidelines sent via my chart. Advised to call with questions or concerns. Pt is in agreement with above plan. Amada Mattson IR Patient Airline Captain documented in thi s encounter Plan of Treatment Not on filedocumented as of this encounter Visit Diagnoses + + | Diagnosis | + + | Acute deep vein thrombosis (DVT) of both upper extremities, unspecified vein (HCC) | + + documented in this encounter"
--- OUTSIDE RECORDS SUMMARY | ~2020-03-12 | XMS | Encounter Summary ---
Demographics + + + | Address | [address] | | | [place] [address] | + + + | Home Phone [...] Team Providers + +------+ + | Care Order Checker Packer Processer Name | Role | Phone | + +------+ + | Meredith Sanchez | PCP | | + +------+ + Encounter Details +--------+ + + + + | Date | Type | Department | Care Team | Description | +--------+ + + + + | 05/04/ | Telephone | Dermatology | Tima Norton, | | | 2019 | | Medical at [facility] [address] | [address] [facility] | | | | | [facility] | [facility] | | | | | for [facility] and | [place], [place] | | | | | [facility], [address], | [address] | | | | | [address]th Floor | [phone] | | | | | [place], [place] | | | | | | [address] | | | | | | [phone] | | | +--------+ + + + [...] + | DERM PATHOLOGY | Routin | 05/04/2019 | Rash and other | Results for this | | | e | | nonspecific skin | procedure are in the | | | | | eruption | results section. | + +--------+ + + + documented in this encounter Results DERM PATHOLOGY (05/04/2019) + + + + + + | Component | Value | Ref Range | Performed | Pathologist | | | | | At | Signature | + + + + + + | Clinical | Light pink, erythematous | | [facility] | | | History | macules occasionally | | DERMATOPATH | | | | coalescing into patches | | OLOGY | | | | on the ears, back, upper | | | | | | extensor extremities | | | | | | and dorsal hands. 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 | | | | | | Differential includes | | | | | | engraftment syndrome vs | | | | | | aGVHD vs drug eruption. | | | | + + + + + + | Specimen | Dermatopathology | | [facility] | | | Description | | | DERMATOPATH | | | | | | OLOGY | | | | Case: [id number] | | | | | | | | | | | | | | | | | | Authorizing Provider: | | | | | | Bartolo Jarrell MD | | | | | | Collected: | | | | | | 05/04/2019 | | | | | | | | | | | | Ordering Location: | | | | | | Dermatology Medical at | | | | | | [facility] Received: | | | | | | 05/04/2019 1543 | | | | | | | | | | | | | | | | | | [facility] | | | | | | | | | | | | | | | | | | | | | | | | | | | | | | Pathologist: | | | | | | Jose Peace MD | | | | | | | | | | | | | | | | | | | | | | | | Specimen: | | | | | | Rt arm, punch biopsy | | | | | | | | | | | | | | | | | | | | | | | | | | | | | | | | | | + + + + + + | Final | SPARSE VACUOLAR | | [facility] | Electronically | | Pathologic | DERMATITIS.NOTE: The | | DERMATOPATH | signed by Jose | | Diagnosis | changes are exceedingly | | OLOGY | P MD Nata on | | | subtle, and not | | | 05/05/2019 at | | | definitive, although in | | | 6:40 PM | | | this setting, early | | | | | | changes of | | | | | | [id number] | | | | | | DISEASE/ENGRAFTMENT | | | | | | SYNDROME is most likely. | | | | | | Clinical correlation is | | | | | | nevertheless | | | | | | recommended.KP:sw | | | | | | 9 | | | | + + + + + + | Gross | Received in formalin is | | [facility] | | | Description | a specimen labeled with | | DERMATOPATH | | | | the patient's name:A: | | OLOGY | | | | Specimen is labeled | | | | | | "Right arm" and consists | | | | | | of a 4 mm punch of | | | | | | white-perez skin, cut to a | | | | | | depth of 3 mm. The | | | | | | surgical margin is inked | | | | | | blue; the tissue is | | | | | | bisected; and entirely | | | | | | submitted in cassette | | | | | | A1. | | | | + + + + + + | Microscopic | There is a thinned | | [facility] | | | | epidermis, with very | | DERMATOPATH | | | Description | rare dyskeratotic | | OLOGY | | | | keratinocytes. There is | | | | | | a sparse superficial | | | | | | perivascular, | | | | | | predominantly | | | | | | lymphocytic infiltrate | | | | | | and solar elastosis. | | | | + + + [...] + + + + | [facility] | [address] | [place] [address] | | | DERMATOPATHOLOGY | [address] | | | + + + + + | [facility] | [address] | [place] [address] | | | DERMATOPATHOLOGY | [address] | | | + + + + + documented in this encounter Visit Diagnoses + + | Diagnosis | + + | Rash and other nonspecific skin eruption - Primary | + + documented in this encounter
--- OUTSIDE RECORDS SUMMARY | ~2020-03-12 | XMS | Encounter Summary ---
Demographics + + + | Address | [address] | | | [place] [address] | + + + | Home Phone [...] Providers + +------+ + | Care Director Medical Safety Name | Role | Phone | + +------+ + | Meredith Sanchez | PCP | | + +------+ + Encounter Details +--------+--------+ + + + | Date | Type | Department | Care Team | Description | +--------+--------+ + + + | 06/24/ | Travel | | | | | [...]
--- OUTSIDE RECORDS SUMMARY | ~2020-03-12 | XMS | Encounter Summary ---
Demographics + + + | Address | [address] | | | [place] [address] | + + + | Home Phone [...] Team Providers + +------+ + | Care Musical Instrument Maker Name | Role | Phone | + +------+ + | Meredith Sanchez | PCP | | + +------+ + Encounter Details +--------+ + + + + | Date | Type | Department | Care Team | Description | +--------+ + + + + | 05/17/ | Attenuator | [facility] | Caprice Escoto NP | 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 | | Clinics at S | [address]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) | | | | [facility] [address] | (Primary Dx) | | | | [facility] for | [place], [place] | | | | | Health and Healing, | [address] | | | | | [address] | [phone] | | | | | [place], [place] | | | | | | [address] | | | | | | [phone] | | | +--------+ + + + [...] on filedocumented as of this encounter Results [facility] - COMPLETE METABOLIC SET (05/19/2019 10:59 AM [...] | | | LABORATORY | | | ETHIOPIAN | | | SERVICES, | | | [...] [facility]STITUTE LAB[facility]ORY | [address] | [place] [address] | | | SERVICES, [facility] | | | | | HEALTH [...] [facility] | [address] | [place] [address] | | | SERVICES, [facility]ENTER FOR | [...] SERVICES, | | | | | | [facility] | | | | | | [...] LABORATORY | [address] | [place] [address] | | | [facility], [facility] | | | | | HEALTH + [...] LABORATORY | | | | | | [facility], | | | | | | [facility] | | | | | | [...] [facility] | [address] | [place] [address] | | | SERVICES, CENTER FOR | | | | | HEALTH + HEALING | | | | + + + + + documented in this encounter Visit Diagnoses + + | Diagnosis | + + | MDS (myelodysplastic syndrome) (HCC) - Primary Myelodysplastic syndrome, unspecified | + + documented in this encounter"
--- OUTSIDE RECORDS SUMMARY | ~2020-03-12 | XMS | Encounter Summary ---
Demographics + + + | Address | [address] | | | [place] [address] | + + + | Home Phone [...] Team Providers + +------+ + | Care Shipping Lead Name | Role | Phone | + +------+ + PCP | Unavailable | + +------+ + Encounter Details +--------+ + + + + | Date | Type | Department | Care Team | Description | +--------+ + + + + | 11/23/ | Abstract | [facility] | Sejal De La Torre | | | 2019 | | Clinics at S | N, DO [address] [facility] | | | | | [facility] [address] | [facility] | | | | | [facility] for | [place], [place] | | | | | Health and Healing, | [address] | | | | | [address] | [phone] | | | | | [place], [place] | | | | | | [address] | | | | | | [phone] | | | +--------+ + + + [...]
--- OUTSIDE RECORDS SUMMARY | ~2020-03-12 | XMS | Encounter Summary ---
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 Name | Role | Phone | + [...] | (myelodyspla | DO [address] | Stephanie Valverde | | | | | stic | Stephanie Valverde | Jason Gutierrez | | | | | syndrome) | Jason Gutierrez | Mailcode: | | | | | (HCC) | [place], [place] | [address] | | | | | Procedures | [id number] [facility] | | | | | IR CENTRAL | Phone: | Hospital | | | | | VENOUS | [phone] | [facility] | | | | | ACCESS | Fax: | [place], [place] | | | | | PROCEDURE | [phone] | [phone] | | | | | [place] INSERT | | Phone: | | | | | NON-TUNNEL | | [phone] | | | | | CV CATH,>5 | | Fax: | | | | | Y/O [place] | | [phone] | | | | | INSERT | | | | | | | TUNNELED CV | | | | | | | CATH,>4 Y/O | | | | | | | [place] | | | | | | | FLUOROGUIDE | | | | | | | FOR VEIN | | | | | | | DEVICE [place] | | | | | | | US | | | | | | | GUIDE,VASCUL | | | | | | | AR ACCESS | | | +--------+--------+ + + + + Reason for Visit AUTH/CERT +--------+--------+ + [...] + + + + | 04/15/ | Hospital | [facility] [address] | Sejal De La Torre | | | 2019 - | Encounter | [address] Mailcode: | N, DO [address] | | | | | [id number] | [address] | | | 05/18/ | | Stephany [place], | [place], [place] | | | 2018 | | [place] [address] | [address] | | | | | [phone] | [phone] | | | | | | | | | | | | Supa Clarke, | | | | | | MD Reji [address] | | | | | | [address] | | | | | | [place], [place] | | | | | | [address] | | | | | | [phone] | | | | | | | | | | | | Sukhi Millan MD | | | | | | [address] | | | | | | [address] | | | | | | [place], [place] | | | | | | [address] | | | | | | [phone] | | | | | | | | | | | | Aniya Banks, | | | | | | MD [address] | | | | | | [address] | | | | | | [place], [place] | | | | | | [address] | | | | | | [phone] | | | | | | | | | | | | Seferino Canchola | | | | | | G, DO [address] | | | | | | [address] | | | | | | [place], [place] | | | | | | [address] | | | | | | [phone] | | | | | | | | | | | | Suzie Hart, | | | | | | MD [address] | | | | | | [address] | | | | | | [place], [place] | | | | | | [address] | | | | | | [phone] | | | | | | | [...] + + + | Blood Pressure | 134/87 | 05/18/2019 4:44 PM | | | | | PST | | + + + + + | Pulse | 90 | 05/18/2019 4:44 PM | | | | | PST | | + + + + + | Temperature | 36.4 C (97.5 F) | 05/18/2019 4:44 PM | | | | | PST | | + + + + + | Respiratory Rate | 16 | 05/18/2019 4:44 PM | | | | | PST | | + + + + + | Oxygen Saturation | 97% | 05/18/2019 4:44 PM | | | | | PST | | + + + + + | Inhaled Oxygen | - | - | | | Concentration | | | | + + + + + | Weight | 60.4 kg (133 lb 2.5 | 05/18/2019 4:05 AM | | | | oz) | PST | | + + + + + | Height | 159.1 cm (5' 2.64") | 04/15/2019 1:50 PM | | | | | PDT | | + + + + + | Body Mass Index | 23.86 | 04/15/2019 1:50 PM | | | [...] documented as of this encounter Discharge Summaries Maegan Mustafa FNP - 05/18/2019 11:28 AM PSTFormatting of this note might be different fro m the original. [facility] Discharge Summary Discharging Provider: ELIECER Yoo Discharging Attending Physician: Suzie Hart MD [facility] Physician: Sejal De La Torre DO PCP: LACY Perez Admission Date: 04/15/2019 Discharge Date: 05/18/2019 Hospital Stay: 33 day(s) Hematologic Malignancy: MDS Conditioning regimen: FluCyTBI Date of transplant: 04/22/2019 Donor: CBU 1: [id number]/02 match, CBU 2: [id number]/02 laura Research study: Kyle "[id number]: A Multicenter, Randomized, Phase III Registration Tr ial of Transplantation of NiCord, Ex Vivo Expanded, UCB-derived, Stem and Progenitor Cells , vs. Unmanipulated UCB for Patients With Hematological Malignancies". She was randomized to SOC arm. 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 Her post-tr ansplant course was complicated secondary to Strep mitis bacteremia (treated with IV antibio tics), rash/hypoxia/increaed weight around the time of counts engrafting concerning for engr aftment syndrome (started on steroid taper and IV antibiotics changed from Cefepime to Zosyn ), NIRAJ and diarrhea, and platelet alloimmunization (confirmed on platelet refractory workup) . Her counts slowly recovered with supportive filgrastim and she was discharged with close f ollow up scheduled in the outpatient [facility] clinic. To follow up: -Day +21 chimerism pending -On Prednisone taper for engraftment syndrome; last tapered to 5mg daily on 05/18. 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 Her hematogical history da jostin back to 2015 when she noted progressive fatigue. 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 She was working 6 days per week and thought she was working too hard. She left her job in August 2017 to give herself s ome time to feel better. She had been to various physicians in [place] for fatigue without answer s. In January 15, she developed fevers up to 104. She was tested for lyme disease, rheumatologi david conditions which were all negative. She began to notice that her counts were dropping. S he relocated to [facility] [place] from [place] to live with her niece in 06/2018. She saw a local PA in [facility] 07/2018 Meredith Sanchez who did further testing. Labs on 10/07/18 showed normal chemistries, Bilirubin 1.4, hepatitis negative, ESR elevated at 174 with RA, RIOS C3/C4 nega tive. CBC showed WBC 2.4, Hb 10.8, Plt 166K, ANC 1529. She was referred to Dr. Sequeira ( medical oncology) on 10/29. Bone marrow biopsy was performed on 11/05 showing hypercellular mar row (70%) with 18% by morphology and 26% on flow. Mild erythroid hyperplasia and megakaryocy tic atypia. Blast immunophenotype was positive for CD33, CD45 dim, CD34, CD15, CD117, CD 11c , MPO. 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 Cytogenetics were normal. MDS and AML FISH panel was negative. NGS panel was negative for FLT3, NPM1, CEBPA, c-KIT, I DH1, IDH2, TP53. She started Vidaza locally on December 24 however developed a rash to the SQ injection and missed D3, dexamethasone was added for D4-D7. She lives in a travel trailer at her niece's house. Her niece has 5 dogs, 2 chicken, 3 cats and 1 ferret. She is applying fo r disability and not currently working. Her niece owns a [employer] and she helps out as needed . She has no healthy siblings. One brother in [place] is an alcoholic. Older sister lives i n a mcfp due to vascular dementia and severe diabetes. Since my last visit with Mirian gilman, she was admitted to the hospital 01/14-01/26 [...] only option and she consen martha to anneida "[id number]: A Multicenter, Randomized, Phase III Registration Trial of Tra nsplantation of NiCord, Ex Vivo Expanded, UCB-derived, Stem and Progenitor Cells, vs. Unma nipulated UCB for Patients With Hematological Malignancies". She was randomized to SOC arm. C3 aza started on 02/21-end 03/01. Tolerated well without complications. MDS (myelodysplastic syndrome) ([facility]) 11/30/2018 Initial Diagnosis MDS (myelodysplastic syndrome) ([facility]) 12/02/2018 - 12/29/2018 Chemotherapy azaCITIDine (VIDAZA) injection 125 mg, 75 mg/m2 = 125 mg, subcutaneous, ONCE, 1 of 6 cycles 04/15/2019 - Chemotherapy fludarabine (FLUDARA) 42.5 mg in NaCl 0.9 % (NS) IV, 25 mg/m2 = 42.5 mg, intravenous, EVERY 24 HOURS, 0 of 1 cycle cyclophosphamide (CYTOXAN) 60 mg/kg = 4,000 mg in NaCl 0.9 % (NS) IV, 60 mg/kg = 4,000 mg, intravenous, EVERY 24 HOURS, 0 of 1 cycle Hospitalization History: Hematology: #Hematologic Malignancy: MDS Conditioning [...] x 24 hours on Day -7, -6 Research study: Kyle "[id number]: A Multicenter, Randomized, Phase III Registration T rial of Transplantation of NiCord, Ex Vivo Expanded, UCB-derived, Stem and Progenitor Cell s, vs. Unmanipulated UCB for Patients With Hematological Malignancies". She was randomized t o SOC arm. Stem cell transplant -BMT Day: 04/22/2019 -Stem Cell product: tolerated stem cell product on 04/22/2019 without complications. CD 34 count = 0.07 x 10 6 per kg and 0.10 x 10 6 per kg Stem Cell Day: +26 Post-transplant: -Day +21 chimerism ordered per study; PENDING #Pancytopenia likely r/t chemotherapy: -Antimicrobials below -See supportive care #Platelet alloimmunization: 05/03 Platelet refractory w/u positive - requires HLA matched pl atelets. #Supportive Care: Growth Factor: Daily filgrastrim started Day +1 and will continue until ANC > 1500 x 2 c onsecutive days. To continue in outpatient clinic until ANC fully recovered. Labs: Continue to check CBC+diff at least 2x week with clinic visits Transfusion parameters: -Transfuse PRBCs for HCT <21% if asymptomatic OR <24% if symptomatic -Transfuse PPH for platelet count <10,000 sooner for s/s bleeding GVHD: No acute s/s of aGvHD Prophylaxis/Treatment: Prophylaxis with tacrolimus and MMF per [facility] protocol - Tacrolimus started D-3 (goal 5-15) -MMF given at a dose of 15 mg/kg TID D-3 to D+60 #?Engraftment Syndrome: notable for weight gain, SOB requiring 1-2L NC, hyperbilirubinemia, and diffuse non-pruritic erythematous maculopapular rash to trunk/back and extremities ~48 hours prior to count appearance -s/p Methylpred 0.5mg/kg/day (05/05-05/09) -s/p Pred 0.25 mg/kg/d (20 mg), (05/10-05/14 ) -s/p Pred 10 mg daily (05/15-05/17) -Pred 5mg daily (05/18- ), plan to taper quickly and follow rash. Kyle Simpson phase 3 (IRB 39574) Acute GVHD Staging Complete on study visit [...] mL diarrhea/day 2 25-50% BSA 3.1-6 mg/dL 2451-1133 mL diarrhea/day 3 >50% BSA Generalized erythroderma 6.1-15 mg/dL >1500 mL diarrhea/day 4 Generalized erythroderma with bullus formation >15 mg/dL Severe abdominal pain with/without ileus Determine Differential Diagnosis: (Y/N): GVHD:N Drug Reaction: Y Conditioning regimen toxicity:N Infection:N Other (describe): Engraftment vs drug rash (Cefepime) (Y/N): GVHD:N Drug Reaction:N Conditioning regimen toxicity:N TPN:N Infection:N Other (describe): N/A (Y/N): GVHD:N Drug Reaction:N Conditioning regimen toxicity:Y TPN:N Infection:N Other (describe):N/A (Y/N): GVHD:N Drug Reaction:N Conditioning regimen toxicity:Y TPN:N Infection:N Other (describe):N Complete Values: BSA%:18% (faint anterior chest only) Bullae (Y/N):N TBili: 0.5 24H Diarrhea Vol: 350 Severe abd pain (Y/N):N Ileus (Y/N):N Assign Stage: 1 0 0 0 Presumptive/ Confirmed Dx of aGVHD? (Y/N) N N N N HEENT: #Nosebleeds: started 04/30 with intermittent bleeding, controlled -Afrin PRN #Rhinorrhea: 05/13 RVP neg. -claritin daily Pulmonary: Pretransplant PFTs completed on 03/10/19 showed FEV1 of 76% predicted, FVC of 87% predicted and adjusted DLCO of 77% predicted. #Hypoxemia: first noted 04/30 with O2 sats ~88-89%. Improved with lasix. Resolved. As of , O2 sat >90% on RA. -Lasix 60 mg IV PRN, last given 05/08 Cardiovascular: Pretransplant TTE completed on 03/10/2019 showed a LVEF of 64%. #Hx/o PICC line associated DVT:Noted on US 01/17/19 involved both right and left UE.Sh e completed 3 months ofanticoagulationwith apixiban, end date 04/14/19. 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 -s/p Lisinopril 5 mg PO daily (05/07-05/08) -Restarted home triamterene/HCTZ on 05/09 -Hydralazine PRN #Re-evaluation of cardiac function: received cytoxan during conditioning. Increase oxygen r equirements as of 04/30. (05/02) Repeat ECHO LVEF 65-70%. GI: #Mucositis: Improved -Continue mouth rinses -Special mouthwash PRN -Oxycodone 5-15 q4hrs PRN #NIRAJ: worse again on 05/09 but now controlled -Zofran ODT 8 mg q12 hours -Zyprexa 5 mg qHS, started 05/09 -Compazine 5mg AC, started 05/13 -Antiemetics PRN #Abdominal pain/cramping: Improved -Simethicone 80 mg TID PRN #Hemorrhoidal pain: improving -Nifedipine 0.3%-Lidocaine 1.5% TID PRN -Proctozone 2.5% rectal cream TID PRN -Sitz baths after stooling and at least 2-3 times daily #Diarrhea: (04/25) Clostridium difficile negative. (04/25) GI path panel negative. Improvin g. -Imodium PRN #Hyperbilirubinemia: Resolved -Monitor LFTs daily #Risk of gastritis: -Pepcid 20 mg BID #Risk for VOD: no e/o this currently -Ursodiol 500 mg PO BID through Day +90 /Renal: No acute issues Derm: #Rash: first noted 05/02, follicular rash localized to upper back with progression to diffu se, confluent maculopapular to trunk/back and all extremities with c/f hyperacute GvHD vs en graftment syndrome. Improving -(05/04) Derm consult: -Rec vaseline to be applied daily with daily dressing change at bx site. Suture removed on 05/18. -Biopsy performed: sparse vacuolar dermatitis with c/f subtle GVHD -Triamcinolone 0.1% oint BID to affected areas, started 05/04 -Methylpred 0.5mg/kg/day (05/05-05/09) -Pred 0.25 mg/kg/d (20 mg), (05/10-05/14 ) -Pred 10 mg daily (05/15-05/17), -Pred 5mg daily (05/18- ) plan to taper off and follow skin rash -Atarax 10 mg PO q6hrs PRN for itching, started 05/07 Psych: #Depression: Stable, continue home SSRI. - Lexapro 20 mg PO daily MSK: #Myaglia/Arthralgia: -Claritin 10 mg PO daily, started 05/05 #Bilat posterior leg pain: noted only when standing in setting of count recovery. CK 29. R esolving. Infectious Disease: #Herpes Zoster, recent history: Noted in December, now s/p treatment with IV acyclovirfrom approx 01/10 through 01/16 then transitioned to valacyclovir 1g TID to complete an additional 7dcourse (extended for new lesions).She will continue on valacyclovir(rather than acyc lovir)through day +365 post transplant. -Valacyclovir 500mg BID #Non-neutropenic fever:Noted on 04/17. She was started on cefepime, however blood cul tures with NGTD x 72h and fevers since defervesced.She wasde-escalatedto levaquin pr ophylaxis on 04/20 (although not neutropenic), no fevers since de-escalation. -s/pCefepime (04/17 - 04/20) #NTP fever: noted 04/28 with bld cx positive for strep bacteremia (see below), UA: negative , CXR: negative for infection, trace pleural effusions. Afebrile since 05/03 but with recurr ent fever on 05/11. CXR clear -F/u bld cxs 05/11 -s/p Zosyn (05/07-05/16), changed from Cefe d/t rash. D/c'd with ANC recovery #Strep bacteremia: (04/28) NTP fever with bld cx +strep bacteremia. Repeat bld cx as of : negative. Completed course with zosyn #Prophylaxis: Bacterial: see above Fungal: Posaconazole, level adequate at 0.7 on 04/28 Viral: Valacyclovir CMV: Letermovir PCP: Pentamidine given 05/13 Toxo: Pt is toxo negative, no further testing required. #Routine infectious disease testing -CMV by PCR weekly, starting after day 0. Lab Results Component Value Date CMVQUANTPCR Undetected 05/16/2019 CMVQUANTPCR Undetected 05/13/2019 CMVQUANTPCR Undetected 05/07/2019 CMVQUANTPCR Undetected 04/30/2019 Viral surveillance post-UCB transplant: -HHV6 and EBV pending 05/14 -Asp. Galactomannan weekly, starting after day 0. Lab Results Component Value Date GALACTO Negative 05/16/2019 Fluid/Nutrition/Lytes: #Nutrition: Low bacterial diet #Fluid: not indicated, PO intake adequate #Lytes: Continue to check chemistries at least 2x/week with clinic visits. Replace per supp ortive care protocol. DAY OF DISCHARGE Subjective: Breakfast actually tasted good this morning. Feels ready for discharge. Objective: Last Vitals: BP 134/67 (BP Location: Left lower arm, Patient Position: Lying on back) | Pu lse 81 | Temp 36.4 C (97.5 F) (Oral) | Resp 18 | Ht 1.591 m (5' 2.64") | Wt 60.4 kg (133 lb 2.5 oz) | SpO2 94% | BMI 23.86 kg/m | BSA 1.63 m 24 Hour Vital Min/Max: Systolic (24hrs), Av , Min:124 , Max:159 Diastolic (24hrs), Av, Min:57, Max:84 Pulse Min: 79 Max: 87 Temp Min: 36.4 C (97.5 F) Max: 36.9 C (98.4 F) Resp Min: 15 Max: 18 SpO2 Min: 94 % Max: 97 % Intake/Output Summary (Last 24 hours) at 05/18/2019 1128 Last data filed at 05/18/2019 1128 Gross per 24 hour Intake 2742 ml Output 1860 ml Net 882 ml Physical Exam: General: This is a female in no acute distress sitting up in bed. HEENT: PERRL. Sclerae anicteric. Mucosa pink and moist. No ulcers or exudates Skin: No rashes or lesions noted. Chest: Clear to auscultation bilaterally. CV: RRR, no murmurs. Abdomen: S/NT/ND with NABS. No guarding, rigidity or rebound tenderness. No HSM appreciat ed. Extremities: Pulses strong and equal bilaterally. No c/c/e Neuro: Alert and oriented x 3. Grossly nonfocal exam. CVC: Central Line, Left chest DL - no erythema, edema, tenderness or drainage. Dressing cl po, dry and intact. Laboratory Results: Recent Labs 05/16/19 0010 05/17/19 0001 05/18/19 0035 NA 137 136 135* K 3.7 4.2 4.1 CL 104 102 101 BICARB 27 26 25 BUN 12 12 13 CR 0.73 0.69 0.66 GLU 117* 88 93 CA 8.4* 8.8 8.7 AST 12 13 14 ALT 17 17 17 AP 74 85 87 TBILI 0.6 0.5 0.5 TP 5.7* 6.3* 6.2* ALB 2.8* 3.1* 3.1* Recent Labs 05/16/19 0010 05/17/19 0001 05/18/19 0035 WBC 0.82* 1.33* 2.07* RBC 3.07* 3.22* 3.16* HB 8.6* 9.2* 8.8* HCT 25.6* 26.7* 26.4* PLT 3* 3* 25* NEUTROPERC 70.8* 42.0* 69.6 LYMPHPERC 10.1* 14.3* 11.3* MONOPERC 10.1* 21.1* 10.4* BASOPERC 0.0 0.8 0.9 EOSPERC 7.9* 4.5* 7.8* Discharge Medications: Medication List START taking these medications famotidine 20 mg Tab Commonly known as: PEPCID Take 1 tablet by mouth two times daily. Indications: prevention of inflammation of stomach hydrocortisone 2.5 % Crpe Commonly known as: PROCTOZONE Apply to affected area three times daily as needed. Wash and dry the rectal area, gently ma ssage a small amount into the affected area. letermovir 480 mg Tab Commonly known as: PREVYMIS Take 1 tablet by mouth once daily. Take this medication through day +100 (07/31/2019) Indic ations: prevention of cytomegalovirus infection after allogeneic hematopoietic stem cell tra nsplant loperamide 2 mg Cap Commonly known as: IMODIUM Take 1 capsule by mouth as needed for diarrhea. Do not exceed max dose of 16 mg/day. loratadine 10 mg Tab Commonly known as: CLARITIN Take 1 tablet by mouth once daily as needed. Indications: bone pain. mycophenolate 500 mg Tab Commonly known as: CELLCEPT Take 2 tablets by mouth three times daily. Take this medication through day +60 (06/21/2019 ) posaconazole DR 100 mg Tbec Commonly known as: NOXAFIL Take 3 tablets by mouth once daily. Indications: prevention of fungal infection predniSONE 5 mg Tab Commonly known as: DELTASONE Take 1 tablet by mouth once daily for 5 doses. Indications: Engraftment syndrome Start taking on: May 19, 2019 prochlorperazine 5 mg Tab Commonly known as: COMPAZINE Take 1-2 tablets by mouth every six hours as needed for nausea/vomiting. Max dose: 40 mg/da y SENNA PLUS 8.6-50 mg Tab Generic drug: senna-docusate Take 1-2 tablets by mouth every twelve hours as needed for constipation. * tacrolimus 0.5 mg Cap Effective 05/18/2019, take 1.5mg by mouth every morning and 1mg every evening. Combine 0.5m g and 1mg capsules to make your current dose. HOLD on days of clinic and bring with you to [facility] AFTER your labs are drawn. Indications: prevention of graft versus host * tacrolimus 1 mg Cap Effective 05/18/2019, take 1.5mg by mouth every morning and 1mg every evening. Combine 0.5m g and 1mg capsules to make your current dose. HOLD on days of clinic and bring with you to [facility] AFTER your labs are drawn. Indications: prevention of graft versus host disease triamcinolone acetonide 0.1 % Oint Commonly known as: KENALOG Apply a thin film to the affected areas twice daily as needed . Indications: skin rash ursodiol 500 mg Tab Take 1 tablet by mouth two times daily. Take this medication through day +90 (07/21/2019) I ndications: prevention of veno-occulsive disease * This list has 2 medication(s) that are the same as other medications prescribed for you. Read the directions carefully, and ask your doctor or other care provider to review them wi th you. CHANGE how you take these medications escitalopram oxalate 20 mg Tab Commonly known as: LEXAPRO Take 1 tablet by mouth once daily. Indications: major depressive disorder What changed: medication strength ondansetron 8 mg Tab Commonly known as: ZOFRAN Take 1 tablet by mouth every twelve hours as needed for nausea/vomiting. Indications: nause a and vomiting caused by cancer drugs What changed: reasons to take this CONTINUE taking these medications triamterene-hydrochlorothiazide 37.5-25 mg Cap Commonly known as: DYAZIDE Take 1 capsule by mouth once daily. Indications: high blood pressure valACYclovir 500 mg Tab Commonly known as: VALTREX Take 1 tablet by mouth two times daily. STOP taking these medications ELIQUIS 2.5 mg Tab Generic drug: apixaban potassium chloride SR 20 mEq Tbtq Commonly known as: K-DUR Allergies: Allergies Allergen Reactions Cefepime Rash Sulfa (Sulfonamide Antibiotics) Hives Code Status: Full POLST completed: no Additional Instructions: Diet Instructions Diet Low Bacteria Low bacteria diet- You should choose foods that have a low bacterial content to reduce the risk of infection. Your nurse or capacity planning manager will provide you with information about foods t o avoid. -No raw seed and vegetable sprouts -No raw or rare meat, fish, and poultry -No food from salad bars and buffets -No food with raw eggs (salad dressings, egg nog) -No unpasteurized dairy products -No unroasted nuts and nuts in the shell -No unpasteurized juices and ciders -No probiotics and probiotic-containing foods like: Janee s yogurt, Dannon Activia, k ombucha, and kefir, etc. - Activity Instructions Activity No activity restrictions Activity restrictions: -Avoid large crowds and people that are obviously ill. -Practice good hand washing hygiene. -Wear a mask when you are coming in and out of clinic or in a crowded or poorly ventilated place. You do not need to wear a mask around family/friends, in a well-ventilated public are a or outside unless you are in a construction area that may have dust/dirt particles in the air. -Careful with physical activity when your platelets are low to prevent bleeding. -Contact with pets (but not feces) is safe with the exception of reptiles, amphibians, and birds. Additional Instructions Other Discharge Orders and Instructions Call the BMT clinic ([phone]) or BMT person on-call ([phone]) for: Any temp > 100.4 Nausea/vomiting unresponsive to anti-nausea medications Significant diarrhea despite Imodium Inability to drink at least 2 liters of fluid daily You develop a rash Bleeding Over the counter Medication- use as needed: __ Benadryl (Diphenhydramine) 25 mg by mouth every 6 hours as needed for sleep, itching, na usea or restlessness. __ Antacids- One ounce or one tablet every 2-4 hours as needed for heartburn. Call you doc tor if heartburn persists or isn't relieved with this medication. __ Laxative- Senokot-S one to two twice a day as needed. This is a medication you can use to soften your stools and decrease constipation. Call your doctor if the above measures do not relieve your constipation. *Avoid all enemas and suppositories* __ Anusol Cream- Apply a small amount to external rectal area as needed for hemorrhoidal di scomfort. Do not apply internally. Call you doctor for persistent discomfort, bleeding or pain. __ Lubriderm lotion- apply to skin twice a day as needed to treat dry skin __ Eucerin Cream - apply to skin twice a day as needed to treat dry skin. __ Sunscreen - as needed SPF 15 or greater. Apply to sun-exposed skin before exposure to direct sunlight or outside activities. Over the counter Medication - use as needed: Benadryl (Diphenhydramine) 25 mg by mouth every 6 hours as needed for sleep, itching, nause a or restlessness. Antacids- One ounce or one tablet every 2-4 hours as needed for heartburn. Call you doctor if heartburn persists or isn't relieved with this medication. Laxative- Senokot-S one to two twice a day as needed. This is a medication you can use to soften your stools and decrease constipation. Call your doctor if the above measures do not relieve your constipation. *Avoid all enemas and suppositories* Anusol Cream- Apply a small amount to external rectal area as needed for hemorrhoidal disco mfort. Do not apply internally. Call you doctor for persistent discomfort, bleeding or jamey n. Lubriderm lotion- apply to skin twice a day as needed to treat dry skin Eucerin Cream apply to skin twice a day as needed to treat dry skin. Sunscreen as needed SPF 15 or greater. Apply to sun-exposed skin before exposure to d irect sunlight or outside activities. Regarding Pain Medication or any sedating medications (like nausea or anxiety meds): You are advised to not drive, operate heavy equipment, or consume alcohol while on prescrip tion opioid pain medication. Take a stool softener (like Senna Plus) while taking opioid pain medication in order to pre vent constipation. Skin Care - Assess daily for signs or symptoms of rash, redness, irritation. - No straight edge razor to be used if platelets are less than 50,000. - Apply Lubriderm or Eucerin cream to skin twice daily and as needed to treat dry skin. - Avoid direct sun exposure and if necessary use SPF or greater sunscreen. Oral Care - Assess daily for redness, swelling, sores or bruising in mouth. - Extra soft toothbrush. - If platelets are less than 50,000, do not use a toothbrush but instead use toothettes. - If platelets are less than 100,000, do not floss. - Rinse mouth with 1-2 ounces saline solution 4 times daily (after meals & at bedtime). Immunosuppressive Medication -Do not take your tacrolimus medication until after each office visit appointment Other Orders & Follow-up Plan Other Discharge Orders and Instructions Follow Up: Future Appointments Provider Department Dept Phone Center 05/19/2019 10:50 AM Pod A Hematology/Medical Oncology at [facility] [phone] [facility] 05/20/2019 8:20 AM Pod A Hematology/Medical Oncology at [facility] [phone] [facility] 05/20/2019 9:10 AM [facility] Arrive at: 11th Floor Hematology/Medical Oncology [phone] [facility] 05/24/2019 9:20 AM BMT INFUSION Hematology/Medical Oncology at [facility] [phone] [facility] 05/24/2019 10:10 AM [facility] for Hematologic Malignancies at [facility] Arrive at: 11th Floor Hematology/Medical Oncology [phone] [facility] 05/27/2019 9:00 AM BMT INFUSION Hematology/Medical Oncology at [facility] [phone] [facility] 05/31/2019 10:20 AM BMT INFUSION Hematology/Medical Oncology at [facility] [phone] [facility] 05/31/2019 11:40 AM Apple [facility] for Hematologic Malignancies at [facility] Arrive at: 11th Floor Hematology/Medical Oncology [phone] [facility] 06/03/2019 9:30 AM BMT INFUSION Hematology/Medical Oncology at [facility] [phone] [facility] 06/03/2019 10:40 AM Apple [facility] for Hematologic Malignancies at [facility] Arrive at: 11th Floor Hematology/Medical Oncology [phone] [facility] 06/07/2019 9:20 AM BMT INFUSION Hematology/Medical Oncology at [facility] [phone] [facility] 06/07/2019 10:40 AM Apple [facility] for Hematologic Malignancies at [facility] Arrive at: 11th Floor Hematology/Medical Oncology [phone] [facility] 06/10/2019 10:20 AM BMT INFUSION Hematology/Medical Oncology at [facility] [phone] [facility] 06/10/2019 11:10 AM Apple [facility] for Hematologic Malignancies at [facility] Arrive at: 11th Floor Hematology/Medical Oncology [phone] [facility] 06/13/2019 9:10 AM BMT INFUSION Hematology/Medical Oncology at [facility] [phone] [facility] 06/13/2019 10:10 AM Apple [facility] for Hematologic Malignancies at [facility] Arrive at: 11th Floor Hematology/Medical Oncology [phone] [facility] 06/16/2019 9:30 AM BMT INFUSION Hematology/Medical Oncology at [facility] [phone] [facility] 06/16/2019 10:30 AM [facility] at [facility] Arrive at: 11th Floor Hematology/Medical Oncology [phone] [facility] 06/21/2019 9:20 AM BMT INFUSION Hematology/Medical Oncology at [facility] [phone] [facility] 06/21/2019 10:10 AM [facility] at [facility] Arrive at: 11th Floor Hematology/Medical Oncology [phone] [facility] 06/24/2019 9:30 AM BMT INFUSION Hematology/Medical Oncology at [facility] [phone] [facility] 06/24/2019 10:10 AM [facility] at [facility] Arrive at: 11th Floor Hematology/Medical Oncology [phone] [facility] Schedule the following appointment(s) when you get home LACY Perez . Specialty: Physician [employer]rication Supervisor Contact information [address] [place] [address] I spent >30min in discharge planning, medications, and follow up. ELIECER Yoo [facility] 14K [address] Mailcode: [address] [place] [address] Associated attestation - Suzie Hart MD - 05/18/2019 9:10 PM PSTCenter for Hematolo gic Malignancies - BMT Attending Daily Progress Note Attestation Date of service: 05/18/19 I personally saw this patient, performed the bradley elements of the physical examination, and formulated the assessment and plan with the advanced practice provider, Ms Mustafa. Interva l history, current medications and laboratories were reviewed. My direct observations and ch anges are noted below. Subjective/Objective: - Day +26 after UCB for MDS (on Gamida protocol) - Third day of ANC over 500. - Afebrile w/o infections - Appetite slowly improving. Meeting daily intake goals although she says that food still t astes funny. - DC teaching of patient and caregiver completed. - D/C today with close clinic follow-up. Needs one more day of G-CSF. - No active infections or GVHD at the time of discharge. Patients Hospital Problem List: Active Hospital Problems 1) *MDS (myelodysplastic syndrome) (HCC) 2) Acute deep vein thrombosis (DVT) of both upper extremities (HCC) 3) Immunocompromised state due to drug therapy 4) Pancytopenia (HCC) I spent 35 minutes in patient care, of which at least 50% were spent in discharge counselin g and coordination of care. Please refer to discharge summary dated 05/18/19 for details of this hospital admission and care plan. Suzie Hart MD Hematology/Oncology & Bone Marrow Transplantation Programdocumented in this encounter Discharge Instructions Discharge Instr - AVS First Page Diane Grace PA - 05/08/2019 10:33 PM PSTNotify [facility] Center for Hematological Malignancies triage clinic IMMEDIATELY for the following issues. Ca ll or after hours/holidays and ask to page "BMT person exhibition organiser ". - If temp is greater than 38 degrees Celsius or 100.4 degrees Fahrenheit - Inability to drink at least 2 L or more of liquids per day - Nausea/vomiting that is unresponsive to antiemetic medications - More than 3 loose stools in a 24 hour period - Development of rash - Any evidence of new or increased bleeding. -Or if any new and/or progressive/worsening signs or symptoms. If you are unable to get ahold of the BMT clinic and/or BMT person on-call, go directly to the closest emergency department and/or call 911. Discharge Instr - Activity Diane Grace PA - 05/08/2019 10:31 PM PSTActivity restricti ons: -Avoid large crowds and people that are obviously ill. -Practice good hand washing hygiene. -Wear a mask when you are coming in and out of clinic or in a crowded or poorly ventilated place. You do not need to wear a mask around family/friends, in a well-ventilated public are a or outside unless you are in a construction area that may have dust/dirt particles in the air. -Careful with physical activity when your platelets are low to prevent bleeding. -Contact with pets (but not feces) is safe with the exception of reptiles, amphibians, and birds. Discharge Instr - Diet Diane Grace PA - 05/08/2019 10:31 PM PST-No raw seed and veget able sprouts -No raw or rare meat, fish, and poultry -No food from salad bars and buffets -No food with raw eggs (salad dressings, egg nog) -No unpasteurized dairy products -No unroasted nuts and nuts in the shell -No unpasteurized juices and ciders -No probiotics and probiotic-containing foods like: Janee s yogurt, Dannon Activia, k ombucha, and kefir, etc. Discharge Instr - Diagnoses Diane Grace PA - 04/20/2019 1:09 PM PDT-myelodysplastic syndrome -low white blood cell, red blood cell and platelet count (pancytopenia) -neutropenic fevers -blood infection (strep bacteremia) -hypertension -diarrhea -engraftment syndrome vs drug rash -fluid volume overload -hemorrhoid pain -low potassium (hypokalemia) Discharge Instr - Procedures Diane Grace PA - 05/08/2019 10:31 PM PST-peripheral bloo d stem cell transplant -skin biopsy Discharge Instr - Hospital Course Diane Grace PA - 05/08/2019 10:40 PM PSTYou were ad mitted to [facility] a peripheral blood stem cell transplant for your myelodysplastic syndrome. Your course was complicated by low white blood cell/red blood cell/platelet count resolved with blood transfusions, as needed, low potassium treated with potassium supplemen ts, neutropenic fevers found to have a blood infection treated with antibiotics, questionabl e engraftment syndrome vs drug rash from cefepime that significantly improved with discontin uation of cefepime, fluid volume overload alleviated with lasix, hemorrhoidal pain and diarr hea treated with anti-diarrheals. You are adequately eating, drinking ~2L/day, taking all me dication orally, and ambulating on your own. You are now safe for discharge. You will follow -up closely at [facility] for labs/infusion and office visits (see appointments). Do not take your tacrolimus medication until after each office visit. Additional Instructions Diane Grace PA - 05/08/2019 10:33 PM PSTOver the counter Medi cation - use as needed: Benadryl (Diphenhydramine) 25 mg by mouth every 6 hours as needed for sleep, itching, nause a or restlessness. Antacids- One ounce or one tablet every 2-4 hours as needed for heartburn. Call you doctor if heartburn persists or isn't relieved with this medication. Laxative- Senokot-S one to two twice a day as needed. This is a medication you can use to soften your stools and decrease constipation. Call your doctor if the above measures do not relieve your constipation. *Avoid all enemas and suppositories* Anusol Cream- Apply a small amount to external rectal area as needed for hemorrhoidal disco mfort. Do not apply internally. Call you doctor for persistent discomfort, bleeding or jamey n. Lubriderm lotion- apply to skin twice a day as needed to treat dry skin Eucerin Cream apply to skin twice a day as needed to treat dry skin. Sunscreen as needed SPF 15 or greater. Apply to sun-exposed skin before exposure to dire ct sunlight or outside activities. Regarding Pain Medication or any sedating medications (like nausea or anxiety meds): You are advised to not drive, operate heavy equipment, or consume alcohol while on prescrip tion opioid pain medication. Take a stool softener (like Senna Plus) while taking opioid pain medication in order to pre vent constipation. Skin Care - Assess daily for signs or symptoms of rash, redness, irritation. - No straight edge razor to be used if platelets are less than 50,000. - Apply Lubriderm or Eucerin cream to skin twice daily and as needed to treat dry skin. - Avoid direct sun exposure and if necessary use SPF or greater sunscreen. Oral Care - Assess daily for redness, swelling, sores or bruising in mouth. - Extra soft toothbrush. - If platelets are less than 50,000, do not use a toothbrush but instead use toothettes. - If platelets are less than 100,000, do not floss. - Rinse mouth with 1-2 ounces saline solution 4 times daily (after meals & at bedtime). Immunosuppressive Medication -Do not take your tacrolimus medication until after each office visit appointment Madison Lara RN - 05/18/2019Check your oral temperature twice a day and whenever you f eel like you may have chills or a [...] if you have any questions! BMT CLINIC ([facility]) during clinic hours (M-F 8:30-4:30): [phone] BMT CLINIC ([facility]) at all other times: [phone] 14KPV: [phone] How was your stay with us? Is there anything we could have done differently to improve your time here on 14K? documented in this encounter Medications at Time [...] as of this encounter Progress Notes Janee Bellamy MSW - 05/17/2019 5:06 PM PSTName:Stephenie Camarillo Date: td : 1965 Problem Identified: Adjustment to diagnosis/treatment Met with Stephenie today and informed her about her approval by the the [facility] [employer] pport Assistance maria luz. She is preparing for discharge and her friend has checked into the [facility]. Provided emotional support. Plan/Intervention: Social work will plan to be available for support and assistance as need ed. KRIS ALEXANDRA,[facility] [address]K [address] Mailcode: [address] [place] [address] Caprice Ann NP - 05/17/2019 12:09 PM PST Daily GISSEL Note - Transplant Admit [facility] for [facility]ologic [facility]ignancies Attending: Suzie Hart MD [facility] Physician: Sejal De La Torre DO PCP: LACY Perez Date of Admission: 04/15/2019 Hematologic Malignancy: MDS Conditioning regimen: FluCyTBI Date of transplant: 04/22/2019 Donor: CBU 1: [id number] match, CBU 2: [id number]/02 match Reason for admission: Scheduled admission for myeloablative chemotherapy with subsequent st em cell infusion. ID: [id number] yo with MDS admitted for FluCyTBI UCB on Gamida. Hx/o HTN and PICC associated thromb osis 24 hour events/plans: -MDS: admitted for FluCyTBI (on Gamida Trial), currently day +25 -IST: tacrolimus (goal 5-15) with MMF -Pancytopenia: standard transfusion parameters. -Platelet alloimmunization: 05/03 Platelet refractory w/u positive - requires HLA matched pl atelets. -NIRAJ: controlled. Continue zofran BID and added zyprexa 5 mg qHS, compazine with meals -Diarrhea: (04/25) Clostridium difficile negative. (04/25) GI path panel negative. Diarrh ea and hemorrhoid improving. -Imodium PRN -Nifedipine 0.3%-Lidocaine 1.5% TID PRN - pt prefers this medication vs. Proctozone -Rash: first noted 05/02, with progression on 05/04. Derm biopsy c/w engraftment syndrome b ut could be c/w drug rash and improved with stopping cefepime. -Suture to be removed on 05/18. -Triamcinolone 0.1% oint BID to affected areas, started 05/04 -?Engraftment Syndrome: notable for weight gain, SOB requiring 1-2L NC, hyperbilirubinemia, and diffuse non-pruritic erythematous maculopapular rash to trunk/back and extremities ~48 hours prior to count appearance -Methylpred 0.5mg/kg/day (05/05-05/09) -Pred 0.25 mg/kg/d (20 mg), (05/10-05/14 ) -Pred 10 mg daily (05/15- ), plan to taper off and follow skin rash -Lytes: standard electrolyte replacement. -HypoK: 20mEq KCL PO BID + PRN replacements Subjective: Did well with eating yesterday, still bothered by mild nausea with smell of emory d but no emesis. Still mildly tired but feels much better than yesterday. Diarrhea much bett er today. Objective: Last Vitals: BP 132/72 (BP Location: Left lower arm, Patient Position: Lying on back;Sittin g) | Pulse 87 | Temp 36.7 C (98.1 F) (Oral) | Resp 16 | Ht 1.591 m (5' 2.64") | Wt 61.2 kg (134 lb 14.7 oz) | SpO2 96% | BMI 24.18 kg/m | BSA 1.64 m 24 Hour Vital Min/Max: Systolic (24hrs), Av , Min:114 , Max:154 Diastolic (24hrs), Av, Min:60, Max:73 Pulse Min: 78 Max: 87 Temp Min: 36.4 C (97.5 F) Max: 36.7 C (98.1 F) Resp Min: 16 Max: 18 SpO2 Min: 94 % Max: 96 % Intake/Output Summary (Last 24 hours) at 05/17/2019 1209 Last data filed at 05/17/2019 1000 Gross per 24 hour Intake 2900 ml Output 2255 ml Net 645 ml Physical Exam: General: This is a female in no acute distress sitting up in bed. HEENT: PERRL. Sclerae anicteric. Mucosa pink and moist. No ulcers or exudates Skin: No diaphoresis, lesions noted. +Faint patchy erythema on arms, resolving. Chest: Clear to auscultation bilaterally. CV: RRR, no murmurs. Abdomen: S/NT/ND with NABS. No guarding, rigidity or rebound tenderness. No HSM appreciat ed. Extremities: Pulses strong and equal bilaterally. No c/c/e Neuro: Alert and oriented x 3. Grossly nonfocal exam. CVC: Central Line, DL - no erythema, edema, tenderness or drainage. Dressing clean, dry an d intact. Laboratory Results: Recent Labs 05/15/19 0004 05/16/19 0010 05/17/19 0001 NA 137 137 136 K 3.4 3.7 4.2 CL 104 104 102 BICARB 27 27 26 BUN 10 12 12 CR 0.64 0.73 0.69 GLU 134* 117* 88 CA 7.7* 8.4* 8.8 AST 12 12 13 ALT 14 17 17 AP 71 74 85 TBILI 0.4 0.6 0.5 TP 5.3* 5.7* 6.3* ALB 2.6* 2.8* 3.1* Recent Labs 05/15/19 0004 05/16/19 0010 05/17/19 0001 WBC 0.49* 0.82* 1.33* RBC 2.36* 3.07* 3.22* HB 6.6* 8.6* 9.2* HCT 19.2* 25.6* 26.7* PLT 4* 3* 3* NEUTROPERC 51.1 70.8* 42.0* LYMPHPERC 16.3* 10.1* 14.3* MONOPERC 20.4* 10.1* 21.1* BASOPERC 0.0 0.0 0.8 EOSPERC 2.0 7.9* 4.5* Meds: Reviewed on rounds, see current MAR for medication list SUMMARY OF PATIENT'S HOSPITALIZATION History of Present Illness: (from H&P) Stephenie Camarillo is a 53 year old female with 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 Her hematogical history da jostin back to 2015 when she noted progressive fatigue. 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 She was working 6 days per week and thought she was working too hard. She left her job in August 2017 to give herself s ome time to feel better. She had been to various physicians in [place] for fatigue without answer s. In January 15, she developed fevers up to 104. She was tested for lyme disease, rheumatologi david conditions which were all negative. She began to notice that her counts were dropping. S he relocated to [facility] [place] [facility] from [place] to live with her niece in 06/2018. She saw a local PA in [facility] 07/2018 Meredith Sanchez who did further testing. Labs on 10/07/18 showed normal chemistries, Bilirubin 1.4, hepatitis negative, ESR elevated at 174 with RA, RIOS C3/C4 nega tive. CBC showed WBC 2.4, Hb 10.8, Plt 166K, ANC 1529. She was referred to Dr. Sequeira ( medical oncology) on 10/29. Bone marrow biopsy was performed on 11/05 showing hypercellular mar row (70%) with 18% by morphology and 26% on flow. Mild erythroid hyperplasia and megakaryocy tic atypia. Blast immunophenotype was positive for CD33, CD45 dim, CD34, CD15, CD117, CD 11c , MPO. 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 Cytogenetics were normal. MDS and AML FISH panel was negative. NGS panel was negative for FLT3, NPM1, CEBPA, c-KIT, I DH1, IDH2, TP53. She started Vidaza locally on December 24 however developed a rash to the SQ injection and missed D3, dexamethasone was added for D4-D7. She lives in a travel trailer at her niece's house. Her niece has 5 dogs, 2 chicken, 3 cats and 1 ferret. She is applying fo r disability and not currently working. Her niece owns a PET [employer] and she helps out as needed . She has no healthy siblings. One brother in [place] is an alcoholic. Older sister lives i n a mcfp due to vascular dementia and severe diabetes. Since my last visit with Mirian gilman, she was admitted to the hospital 01/14-01/26 [...] option and she consen martha to kyle "[id number]: A Multicenter, Randomized, Phase III Registration Trial of Tra nsplantation of NiCord, Ex Vivo Expanded, UCB-derived, Stem and Progenitor Cells, vs. Unma nipulated UCB for Patients With Hematological Malignancies". She was randomized to SOC arm. C3 aza started on 02/21-end 03/01. Tolerated well without complications. MDS (myelodysplastic syndrome) ([facility]) 11/30/2018 Initial Diagnosis MDS (myelodysplastic syndrome) ([facility]) 12/02/2018 - 12/29/2018 Chemotherapy azaCITIDine (VIDAZA) injection 125 mg, 75 mg/m2 = 125 mg, subcutaneous, ONCE, 1 of 6 cycles 04/15/2019 - Chemotherapy fludarabine (FLUDARA) 42.5 mg in NaCl 0.9 % (NS) IV, 25 mg/m2 = 42.5 mg, intravenous, EVERY 24 HOURS, 0 of 1 cycle cyclophosphamide (CYTOXAN) 60 mg/kg = 4,000 mg in NaCl 0.9 % (NS) IV, 60 mg/kg = 4,000 mg, intravenous, EVERY 24 HOURS, 0 of 1 cycle Hospitalization History: Hematology: #Hematologic Malignancy: MDS Conditioning [...] 10 6 per kg Stem Cell Day: +25 Post-transplant: -Day +21 chimerism ordered per study; PENDING #Pancytopenia likely r/t chemotherapy: WBC/ANC rising slowly -Antimicrobials below -See supportive care #Supportive Care: Growth Factor: Daily filgrastrim started Day +1 and will continue until ANC > 1500 x 2 c onsecutive days. Labs: Continue to check CBC daily Transfusion parameters: -Transfuse PRBCs for HCT <21% if asymptomatic OR <24% if symptomatic -Transfuse PPH for platelet count <10,000 sooner for s/s bleeding GVHD: No acute s/s of aGvHD Prophylaxis/Treatment: Prophylaxis with tacrolimus and MMF per [place] protocol - Tacrolimus started D-3 (goal 5-15) -Tacrolimus 0.5 mg PO qPM -Tacrolimus 1.0 mg PO qAM -MMF given at a dose of 15 mg/kg TID D-3 to D+60 #?Engraftment Syndrome: notable for weight gain, SOB requiring 1-2L NC, hyperbilirubinemia, and diffuse non-pruritic erythematous maculopapular rash to trunk/back and extremities ~48 hours prior to count appearance -Methylpred 0.5mg/kg/day (05/05-05/09) -Pred 0.25 mg/kg/d (05/10- ) -Next taper due 05/15 Kyle Simpson phase 3 (IRB 45636) Acute GVHD Staging Complete on study visit [...] mL diarrhea/day 2 25-50% BSA 3.1-6 mg/dL 4212-0615 mL diarrhea/day 3 >50% BSA Generalized erythroderma 6.1-15 mg/dL >1500 mL diarrhea/day 4 Generalized erythroderma with bullus formation >15 mg/dL Severe abdominal pain with/without ileus Determine Differential Diagnosis: (Y/N): GVHD:N Drug Reaction: Y Conditioning regimen toxicity:N Infection:N Other (describe): Engraftment vs drug rash (Cefepime) (Y/N): GVHD:N Drug Reaction:N Conditioning regimen toxicity:N TPN:N Infection:N Other (describe): N/A (Y/N): GVHD:N Drug Reaction:N Conditioning regimen toxicity:Y TPN:N Infection:N Other (describe):N/A (Y/N): GVHD:N Drug Reaction:N Conditioning regimen toxicity:Y TPN:N Infection:N Other (describe):N Complete Values: BSA%:18% (faint anterior chest only) Bullae (Y/N):N TBili: 0.5 24H Diarrhea Vol: 350 Severe abd pain (Y/N):N Ileus (Y/N):N Assign Stage: 1 0 0 0 Presumptive/ Confirmed Dx of aGVHD? (Y/N) N N N N HEENT: #Nosebleeds: started 04/30 with intermittent bleeding, controlled -Afrin PRN #Rhinorrhea: 05/13 RVP neg. -claritin daily Pulmonary: Pretransplant PFTs completed on 03/10/19 showed FEV1 of 76% predicted, FVC of 87% predicted and adjusted DLCO of 77% predicted. #Hypoxemia: first noted 04/30 with O2 sats ~88-89%. Improved with lasix. Resolved. As of , O2 sat >90% on RA. -Lasix 60 mg IV PRN, last given 05/08 Cardiovascular: Pretransplant TTE completed on 03/10/2019 showed a LVEF of 64%. #Hx/o PICC line associated DVT:Noted on US 01/17/19 involved both right and left UE.Sh e completed 3 months ofanticoagulationwith apixiban, end date 04/14/19. 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 -s/p Lisinopril 5 mg PO daily (05/07-05/08) -Restarted home triamterene/HCTZ on 05/09 -Hydralazine PRN #Re-evaluation of cardiac function: received cytoxan during conditioning. Increase oxygen r equirements as of 04/30. (05/02) Repeat ECHO LVEF 65-70%. GI: #Mucositis: Improved -Continue mouth rinses -Special mouthwash PRN -Oxycodone 5-15 q4hrs PRN #NIRAJ: worse again on 05/09 but now controlled -Zofran ODT 8 mg q12 hours -Zyprexa 5 mg qHS, started 05/09 -Compazine 5mg AC, started 05/13 -Antiemetics PRN #Abdominal pain/cramping: Improved -Simethicone 80 mg TID PRN #Hemorrhoidal pain: improving -Nifedipine 0.3%-Lidocaine 1.5% TID PRN -Proctozone 2.5% rectal cream TID PRN -Sitz baths after stooling and at least 2-3 times daily #Diarrhea: (04/25) Clostridium difficile negative. (04/25) GI path panel negative. Improvin g. -Imodium PRN #Hyperbilirubinemia: Trending down, Tbili 1.7 today -Monitor LFTs daily #Risk of gastritis: -Pepcid 20 mg BID #Risk for VOD: no e/o this currently -Ursodiol 500 mg PO BID /Renal: No acute issues Derm: #Rash: first noted 05/02, follicular rash localized to upper back with progression to diffu se, confluent maculopapular to trunk/back and all extremities with c/f hyperacute GvHD vs en graftment syndrome. Improving -(05/04) Derm consult: -Rec vaseline to be applied daily with daily dressing change at bx site. Suture to be raegan esvin on 05/18. -Biopsy performed: sparse vacuolar dermatitis with c/f subtle GVHD -Triamcinolone 0.1% oint BID to affected areas, started 05/04 -Methylpred 0.5mg/kg/day (05/05-05/09) -Pred 0.25 mg/kg/d (20 mg), (05/10-05/14 ) -Pred 10 mg daily (05/15- ), plan to taper off and follow skin rash -Atarax 10 mg PO q6hrs PRN for itching, started 05/07 Psych: #Depression: Stable, continue home SSRI. - Lexapro 20 mg PO daily MSK: #Myaglia/Arthralgia: -Claritin 10 mg PO daily, started 05/05 #Bilat posterior leg pain: noted only when standing in setting of count recovery. CK 29. R esolving. Infectious Disease: #Herpes Zoster, recent history: Noted in December, now s/p treatment with IV acyclovirfrom approx 01/10 through 01/16 then transitioned to valacyclovir 1g TID to complete an additional 7dcourse (extended for new lesions).She will continue on valacyclovir(rather than acyc lovir)through day +365 post transplant. -Valacyclovir 500mg BID #Non-neutropenic fever:Noted on 04/17. She was started on cefepime, however blood cul tures with NGTD x 72h and fevers since defervesced.She wasde-escalatedto levaquin pr ophylaxis on 04/20 (although not neutropenic), no fevers since de-escalation. -s/pCefepime (04/17 - 04/20) #NTP fever: noted 04/28 with bld cx positive for strep bacteremia (see below), UA: negative , CXR: negative for infection, trace pleural effusions. Afebrile since 05/03 but with recurr ent fever on 05/11. CXR clear -F/u bld cxs 05/11 -Zosyn (05/07-05/16), changed from Cefe d/t rash #Strep bacteremia: (04/28) NTP fever with bld cx +strep bacteremia. Repeat bld cx as of : negative. Completed course with zosyn #Prophylaxis: Bacterial: see above Fungal: Posaconazole, level adequate at 0.7 on 04/28 Viral: Valacyclovir CMV: Letermovir PCP: Pentamidine given 05/13 Toxo: Pt is toxo negative, no further testing required. #Routine infectious disease testing -CMV by PCR weekly, starting after day 0. Lab Results Component Value Date CMVQUANTPCR Undetected 05/16/2019 CMVQUANTPCR Undetected 05/13/2019 CMVQUANTPCR Undetected 05/07/2019 CMVQUANTPCR Undetected 04/30/2019 -Asp. Galactomannan weekly, starting after day 0. Lab Results Component Value Date GALACTO Negative 05/16/2019 Fluid/Nutrition/Lytes: #Nutrition: Low bacterial diet #Fluid: not indicated, PO intake adequate #Lytes: Continue to check chemistries daily. Replace per supportive care protocol. Disposition: Pending further count recovery, resolution of fevers and improvement in PO in take. Caprice Escoto NP [facility] [id number] [facility] Mailcode: [email or web address] [place] [address] Associated attestation - Suzie Hart MD - 05/17/2019 9:11 PM PSTCenter for Hematolo gic Malignancies - BMT Attending Daily Progress Note Attestation Date of service: 05/17/19 I personally saw this patient, performed the bradley elements of the physical examination, and formulated the assessment and plan with the advanced practice provider, Ms Escoto. Interval hi story, current medications and laboratories were reviewed. My direct observations and change s are noted below. Subjective/Objective: - Day +25 after UCB for MDS (on Gamida protocol) - Second day of ANC over 500. - Afebrile w/o infections - Appetite slowly improving - DC teaching of patient and caregiver in progress. Anticipate d/c in 1-2 days if ANC remai ns on the rise. Patients Hospital Problem List: Active Hospital Problems 1) *MDS (myelodysplastic syndrome) (HCC) 2) Acute deep vein thrombosis (DVT) of both upper extremities (HCC) 3) Immunocompromised state due to drug therapy 4) Pancytopenia (HCC) Please refer to the GISSEL's note for today for details of assessment and plan. Suzie Hart MD Hematology/Oncology & Bone Marrow Transplantation ProgramCaprice Escoto NP - 05/16/2019 1 :12 PM PST Daily GISSEL Note - Transplant Admit [facility] Attending: Suzie Hart MD [facility] Physician: Sejal De La Torre DO PCP: LACY Perez Date of Admission: 04/15/2019 Hematologic Malignancy: MDS Conditioning regimen: FluCyTBI Date of transplant: 04/22/2019 Donor: CBU 1: [id number]/02 match, CBU 2: [id number]/02 match Reason for admission: Scheduled admission for myeloablative chemotherapy with subsequent st em cell infusion. ID: [id number] yo with MDS admitted for FluCyTBI UCB on Gamida. Hx/o HTN and PICC associated thromb osis 24 hour events/plans: -MDS: admitted for FluCyTBI (on Gamida Trial), currently day +24 -IST: tacrolimus (goal 5-15) with MMF -Pancytopenia: standard transfusion parameters. -Platelet alloimmunization: 05/03 Platelet refractory w/u positive - requires HLA matched pl atelets. -NTP fever: first noted 04/28, afebrile since 05/04 but with recurrent fever on 05/11. Zosy n discontinued 07/16. Repeat bld cxs NGTD, CXR 05/11 clear. -NIRAJ: controlled. Continue zofran BID and added zyprexa 5 mg qHS, compazine with meals -Diarrhea: (04/25) Clostridium difficile negative. (04/25) GI path panel negative. Diarrh ea and hemorrhoid improving. -Imodium PRN -Nifedipine 0.3%-Lidocaine 1.5% TID PRN - pt prefers this medication vs. Proctozone -Rash: first noted 05/02, with progression on 05/04. Derm biopsy c/w engraftment syndrome b ut could be c/w drug rash and improved with stopping cefepime. -Suture to be removed on 05/18. -Triamcinolone 0.1% oint BID to affected areas, started 05/04 -?Engraftment Syndrome: notable for weight gain, SOB requiring 1-2L NC, hyperbilirubinemia, and diffuse non-pruritic erythematous maculopapular rash to trunk/back and extremities ~48 hours prior to count appearance -Methylpred 0.5mg/kg/day (05/05-05/09) -Pred 0.25 mg/kg/d (20 mg), (05/10-05/14 ) -Pred 10 mg daily (05/15- ), plan to taper off and follow skin rash -Lytes: standard electrolyte replacement. -HypoK: 20mEq KCL PO BID + PRN replacements Subjective: Trying to eat more but still having trouble with PO intake. Will try to eat sma ll snacks throughout the day. Objective: Last Vitals: BP 130/67 (BP Location: Left lower arm, Patient Position: Lying on back) | Pu lse 77 | Temp 36.9 C (98.4 F) (Oral) | Resp 20 | Ht 1.591 m (5' 2.64") | Wt 62.2 kg (137 lb 2 oz) | SpO2 94% | BMI 24.57 kg/m | BSA 1.66 m 24 Hour Vital Min/Max: Systolic (24hrs), Av , Min:130 , Max:147 Diastolic (24hrs), Av, Min:64, Max:84 Pulse Min: 77 Max: 93 Temp Min: 36.8 C (98.2 F) Max: 36.9 C (98.4 F) Resp Min: 18 Max: 22 SpO2 Min: 94 % Max: 96 % Intake/Output Summary (Last 24 hours) at 05/16/2019 1312 Last data filed at 05/16/2019 1100 Gross per 24 hour Intake 2185 ml Output 2875 ml Net -690 ml Physical Exam: General: This is a female in no acute distress sitting up in bed. HEENT: PERRL. Sclerae anicteric. Mucosa pink and moist. No ulcers or exudates Skin: No diaphoresis, lesions noted. +Faint patchy erythema on arms, resolving. Chest: Clear to auscultation bilaterally. CV: RRR, no murmurs. Abdomen: S/NT/ND with NABS. No guarding, rigidity or rebound tenderness. No HSM appreciat ed. Extremities: Pulses strong and equal bilaterally. No c/c/e Neuro: Alert and oriented x 3. Grossly nonfocal exam. CVC: Central Line, DL - no erythema, edema, tenderness or drainage. Dressing clean, dry an d intact. Laboratory Results: Recent Labs 05/14/19 0014 05/15/19 0004 05/16/19 0010 NA 136 137 137 K 3.6 3.4 3.7 CL 103 104 104 BICARB 27 27 27 BUN 8 10 12 CR 0.65 0.64 0.73 GLU 101* 134* 117* CA 7.9* 7.7* 8.4* AST 11 12 12 ALT 12 14 17 AP 77 71 74 TBILI 0.6 0.4 0.6 TP 5.7* 5.3* 5.7* ALB 2.8* 2.6* 2.8* Recent Labs 05/14/19 0014 05/15/19 0004 05/16/19 0010 WBC 0.53* 0.49* 0.82* RBC 2.67* 2.36* 3.07* HB 7.4* 6.6* 8.6* HCT 22.0* 19.2* 25.6* PLT 9* 4* 3* NEUTROPERC 49.1* 51.1 70.8* LYMPHPERC 11.3* 16.3* 10.1* MONOPERC 20.8* 20.4* 10.1* BASOPERC 1.9 0.0 0.0 EOSPERC 7.5* 2.0 7.9* Meds: Reviewed on rounds, see current MAR for medication list SUMMARY OF PATIENT'S HOSPITALIZATION History of Present Illness: (from H&P) Stephenie Camarillo is a 53 year old female with 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 Her hematogical history da jostin back to 2015 when she noted progressive fatigue. 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 She was working 6 days per week and thought she was working too hard. She left her job in August 2017 to give herself s ome time to feel better. She had been to various physicians in [place] for fatigue without answer s. In January 15, she developed fevers up to 104. She was tested for lyme disease, rheumatologi david conditions which were all negative. She began to notice that her counts were dropping. S he relocated to [facility] from [place] to live with her niece in 06/2018. She saw a local PA in [facility] 07/2018 Meredith Sanchez who did further testing. Labs on 10/07/18 showed normal chemistries, Bilirubin 1.4, hepatitis negative, ESR elevated at 174 with RA, RIOS C3/C4 nega tive. CBC showed WBC 2.4, Hb 10.8, Plt 166K, ANC 1529. She was referred to Dr. Sequeira ( medical oncology) on 10/29. Bone marrow biopsy was performed on 11/05 showing hypercellular mar row (70%) with 18% by morphology and 26% on flow. Mild erythroid hyperplasia and megakaryocy tic atypia. Blast immunophenotype was positive for CD33, CD45 dim, CD34, CD15, CD117, CD 11c , MPO. 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 Cytogenetics were normal. MDS and AML FISH panel was negative. NGS panel was negative for FLT3, NPM1, CEBPA, c-KIT, I DH1, IDH2, TP53. She started Vidaza locally on December 24 however developed a rash to the SQ injection and missed D3, dexamethasone was added for D4-D7. She lives in a travel trailer at her niece's house. Her niece has 5 dogs, 2 chicken, 3 cats and 1 ferret. She is applying fo r disability and not currently working. Her niece owns a [employer] and she helps out as needed . She has no healthy siblings. One brother in [place] is an alcoholic. Older sister lives i n a mcfp due to vascular dementia and severe diabetes. Since my last visit with Mirian gilmna, she was admitted to the hospital 01/14-01/26 [...] option and she consen martha to kyle "[id number]: A Multicenter, Randomized, Phase III Registration Trial of Tra nsplantation of NiCord, Ex Vivo Expanded, UCB-derived, Stem and Progenitor Cells, vs. Unma nipulated UCB for Patients With Hematological Malignancies". She was randomized to SOC arm. C3 aza started on 02/21-end 03/01. Tolerated well without complications. MDS (myelodysplastic syndrome) (HCC) 11/30/2018 Initial Diagnosis MDS (myelodysplastic syndrome) ([facility]) 12/02/2018 - 12/29/2018 Chemotherapy azaCITIDine (VIDAZA) injection 125 mg, 75 mg/m2 = 125 mg, subcutaneous, ONCE, 1 of 6 cycles 04/15/2019 - Chemotherapy fludarabine (FLUDARA) 42.5 mg in NaCl 0.9 % (NS) IV, 25 mg/m2 = 42.5 mg, intravenous, EVERY 24 HOURS, 0 of 1 cycle cyclophosphamide (CYTOXAN) 60 mg/kg = 4,000 mg in NaCl 0.9 % (NS) IV, 60 mg/kg = 4,000 mg, intravenous, EVERY 24 HOURS, 0 of 1 cycle Hospitalization History: Hematology: #Hematologic Malignancy: MDS Conditioning [...] 10 6 per kg Stem Cell Day: +24 Post-transplant: -Day +21 chimerism ordered per study; PENDING #Pancytopenia likely r/t chemotherapy: WBC/ANC rising slowly -Antimicrobials below -See supportive care #Supportive Care: Growth Factor: Daily filgrastrim started Day +1 and will continue until ANC > 1500 x 2 c onsecutive days. Labs: Continue to check CBC daily Transfusion parameters: -Transfuse PRBCs for HCT <21% if asymptomatic OR <24% if symptomatic -Transfuse PPH for platelet count <10,000 sooner for s/s bleeding GVHD: No acute s/s of aGvHD Prophylaxis/Treatment: Prophylaxis with tacrolimus and MMF per [facility] protocol - Tacrolimus started D-3 (goal 5-15) -Tacrolimus 0.5 mg PO qPM -Tacrolimus 1.0 mg PO qAM -MMF given at a dose of 15 mg/kg TID D-3 to D+60 #?Engraftment Syndrome: notable for weight gain, SOB requiring 1-2L NC, hyperbilirubinemia, and diffuse non-pruritic erythematous maculopapular rash to trunk/back and extremities ~48 hours prior to count appearance -Methylpred 0.5mg/kg/day (05/05-05/09) -Pred 0.25 mg/kg/d (05/10- ) -Next taper due 05/15 Kyle Simpson phase 3 (IRB 40741) Acute GVHD Staging Complete on study visit [...] mL diarrhea/day 2 25-50% BSA 3.1-6 mg/dL [id number] mL diarrhea/day 3 >50% BSA Generalized erythroderma 6.1-15 mg/dL >1500 mL diarrhea/day 4 Generalized erythroderma with bullus formation >15 mg/dL Severe abdominal pain with/without ileus Determine Differential Diagnosis: (Y/N): GVHD:N Drug Reaction: Y Conditioning regimen toxicity:N Infection:N Other (describe): Engraftment vs drug rash (Cefepime) (Y/N): GVHD:N Drug Reaction:N Conditioning regimen toxicity:N TPN:N Infection:N Other (describe): N/A (Y/N): GVHD:N Drug Reaction:N Conditioning regimen toxicity:Y TPN:N Infection:N Other (describe):N/A (Y/N): GVHD:N Drug Reaction:N Conditioning regimen toxicity:Y TPN:N Infection:N Other (describe):N Complete Values: BSA%:18% (faint anterior chest only) Bullae (Y/N):N TBili: 0.5 24H Diarrhea Vol: 350 Severe abd pain (Y/N):N Ileus (Y/N):N Assign Stage: 1 0 0 0 Presumptive/ Confirmed Dx of aGVHD? (Y/N) N N N N HEENT: #Nosebleeds: started 04/30 with intermittent bleeding, controlled -Afrin PRN #Rhinorrhea: 05/13 RVP neg. -claritin daily Pulmonary: Pretransplant PFTs completed on 03/10/19 showed FEV1 of 76% predicted, FVC of 87% predicted and adjusted DLCO of 77% predicted. #Hypoxemia: first noted 04/30 with O2 sats ~88-89%. Improved with lasix. Resolved. As of , O2 sat >90% on RA. -Lasix 60 mg IV PRN, last given 05/08 Cardiovascular: Pretransplant TTE completed on 03/10/2019 showed a LVEF of 64%. #Hx/o PICC line associated DVT:Noted on US 01/17/19 involved both right and left UE.Sh e completed 3 months ofanticoagulationwith apixiban, end date 04/14/19. 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 -s/p Lisinopril 5 mg PO daily (05/07-05/08) -Restarted home triamterene/HCTZ on 05/09 -Hydralazine PRN #Re-evaluation of cardiac function: received cytoxan during conditioning. Increase oxygen r equirements as of 04/30. (05/02) Repeat ECHO LVEF 65-70%. GI: #Mucositis: Improved -Continue mouth rinses -Special mouthwash PRN -Oxycodone 5-15 q4hrs PRN #NIRAJ: worse again on 05/09 but now controlled -Zofran ODT 8 mg q12 hours -Zyprexa 5 mg qHS, started 05/09 -Compazine 5mg AC, started 05/13 -Antiemetics PRN #Abdominal pain/cramping: Improved -Simethicone 80 mg TID PRN #Hemorrhoidal pain: improving -Nifedipine 0.3%-Lidocaine 1.5% TID PRN -Proctozone 2.5% rectal cream TID PRN -Sitz baths after stooling and at least 2-3 times daily #Diarrhea: (04/25) Clostridium difficile negative. (04/25) GI path panel negative. Improvin g. -Imodium PRN #Hyperbilirubinemia: Trending down, Tbili 1.7 today -Monitor LFTs daily #Risk of gastritis: -Pepcid 20 mg BID #Risk for VOD: no e/o this currently -Ursodiol 500 mg PO BID /Renal: No acute issues Derm: #Rash: first noted 05/02, follicular rash localized to upper back with progression to diffu se, confluent maculopapular to trunk/back and all extremities with c/f hyperacute GvHD vs en graftment syndrome. Improving -(05/04) Derm consult: -Rec vaseline to be applied daily with daily dressing change at bx site. Suture to be raegan esvin on 05/18. -Biopsy performed: sparse vacuolar dermatitis with c/f subtle GVHD -Triamcinolone 0.1% oint BID to affected areas, started 05/04 -s/p Methylpred 0.5mg/kg/day (05/05-05/09 -Pred 0.25 mg/kg/d (05/10- ), taper to 10 mg on 05/15 -Atarax 10 mg PO q6hrs PRN for itching, started 05/07 Psych: #Depression: Stable, continue home SSRI. - Lexapro 20 mg PO daily MSK: #Myaglia/Arthralgia: -Claritin 10 mg PO daily, started 05/05 #Bilat posterior leg pain: noted only when standing in setting of count recovery. CK 29. R esolving. Infectious Disease: #Herpes Zoster, recent history: Noted in December, now s/p treatment with IV acyclovirfrom approx 01/10 through 01/16 then transitioned to valacyclovir 1g TID to complete an additional 7dcourse (extended for new lesions).She will continue on valacyclovir(rather than acyc lovir)through day +365 post transplant. -Valacyclovir 500mg BID #Non-neutropenic fever:Noted on 04/17. She was started on cefepime, however blood cul tures with NGTD x 72h and fevers since defervesced.She wasde-escalatedto levaquin pr ophylaxis on 04/20 (although not neutropenic), no fevers since de-escalation. -s/pCefepime (04/17 - 04/20) #NTP fever: noted 04/28 with bld cx positive for strep bacteremia (see below), UA: negative , CXR: negative for infection, trace pleural effusions. Afebrile since 05/03 but with recurr ent fever on 05/11. CXR clear -F/u bld cxs 05/11 -Zosyn (05/07-05/16), changed from Cefe d/t rash #Strep bacteremia: (04/28) NTP fever with bld cx +strep bacteremia. Repeat bld cx as of : negative. Completed course with zosyn #Prophylaxis: Bacterial: see above Fungal: Posaconazole, level adequate at 0.7 on 04/28 Viral: Valacyclovir CMV: Letermovir PCP: Pentamidine given 05/13 Toxo: Pt is toxo negative, no further testing required. #Routine infectious disease testing -CMV by PCR weekly, starting after day 0. Lab Results Component Value Date CMVQUANTPCR Undetected 05/13/2019 CMVQUANTPCR Undetected 05/07/2019 CMVQUANTPCR Undetected 04/30/2019 CMVQUANTPCR Undetected 04/22/2019 -Asp. Galactomannan weekly, starting after day 0. Lab Results Component Value Date GALACTO Negative 05/16/2019 Fluid/Nutrition/Lytes: #Nutrition: Low bacterial diet #Fluid: not indicated, PO intake adequate #Lytes: Continue to check chemistries daily. Replace per supportive care protocol. Disposition: Pending further count recovery, resolution of fevers and improvement in PO in take. Caprice Escoto NP [facility] [id number] [facility] Mailcode: [id number] [place] [address] Associated attestation - Suzie Hart MD - 05/16/2019 11:12 PM PSTCenter for Hematolo gic Malignancies - BMT Attending Daily Progress Note Attestation Date of service: 05/16/19 I personally saw this patient, performed the bradley elements of the physical examination, and formulated the assessment and plan with the advanced practice provider, Ms Escoto. Interval hi story, current medications and laboratories were reviewed. My direct observations and change s are noted below. Subjective/Objective: - Day +24 after UCB for MDS (on Gamida protocol) - ANC over 500 today! - Afebrile w/o infections - Appetite slowly improving and she is making a good effort to increase intake and keeping up with fluid requirements. - DC teaching of patient and caregiver in progress. Patients Hospital Problem List: Active Hospital Problems 1) *MDS (myelodysplastic syndrome) (HCC) 2) Acute deep vein thrombosis (DVT) of both upper extremities (HCC) 3) Immunocompromised state due to drug therapy 4) Pancytopenia (HCC) Please refer to the GISSEL's note for today for details of assessment and plan. Suzie Hart MD Hematology/Oncology & Bone Marrow Transplantation Program Apple Bergeron PA - 05/15/2019 1:45 PM PST Daily GISSEL Note - Transplant Admit [facility] Attending: Suzie Hart MD [facility] Physician: Sejal De La Torre DO PCP: LACY Perez Date of Admission: 04/15/2019 Hematologic Malignancy: MDS Conditioning regimen: FluCyTBI Date of transplant: 04/22/2019 Donor: CBU 1: [id number]/02 match, CBU 2: [id number]/02 match Reason for admission: Scheduled admission for myeloablative chemotherapy with subsequent st em cell infusion. ID: 53 yo with MDS admitted for FluCyTBI UCB on Gamida. Hx/o HTN and PICC associated thromb osis 24 hour events/plans: -MDS: admitted for FluCyTBI (on Gamida Trial), currently day +23 -IST: tacrolimus (goal 5-15) with MMF -Pancytopenia: standard transfusion parameters. 1U and 1U PRBCs today. -Platelet alloimmunization: 05/03 Platelet refractory w/u positive - requires HLA matched pl atelets. -NTP fever: first noted 04/28, afebrile since 05/04 but with recurrent fever on 05/11. Cont inue zosyn. Repeat bld cxs NGTD, CXR 05/11 clear. -NIRAJ: controlled. Continue zofran BID and added zyprexa 5 mg qHS, compazine with meals -Diarrhea: (04/25) Clostridium difficile negative. (04/25) GI path panel negative. Diarrh ea and hemorrhoid improving. -Imodium PRN -Nifedipine 0.3%-Lidocaine 1.5% TID PRN - pt prefers this medication vs. Proctozone -Rash: first noted 05/02, with progression on 05/04. Derm biopsy c/w engraftment syndrome b ut could be c/w drug rash and improved with stopping cefepime. -Suture to be removed on 05/18. -Triamcinolone 0.1% oint BID to affected areas, started 05/04 -?Engraftment Syndrome: notable for weight gain, SOB requiring 1-2L NC, hyperbilirubinemia, and diffuse non-pruritic erythematous maculopapular rash to trunk/back and extremities ~48 hours prior to count appearance -Methylpred 0.5mg/kg/day (05/05-05/09) -Pred 0.25 mg/kg/d (20 mg), (05/10-05/14 ) -Pred 10 mg daily (05/15- ), plan to taper off and follow skin rash -Lytes: standard electrolyte replacement. -HypoK: 20mEq KCL PO BID + PRN replacements Subjective: Feeling well today and having another good day. Does still have diarrhea. Objective: Last Vitals: BP (!) 132/94 (BP Location: Left lower arm, Patient Position: Sitting) | Puls e 79 | Temp 36.6 C (97.9 F) (Oral) | Resp 18 | Ht 1.591 m (5' 2.64") | Wt 62.2 kg (1 37 lb 2 oz) | SpO2 97% | BMI 24.57 kg/m | BSA 1.66 m 24 Hour Vital Min/Max: Systolic (24hrs), Av , Min:109 , Max:138 Diastolic (24hrs), Av, Min:59, Max:94 Pulse Min: 76 Max: 93 Temp Min: 36.3 C (97.3 F) Max: 37.2 C (99 F) Resp Min: 16 Max: 20 SpO2 Min: 92 % Max: 97 % Intake/Output Summary (Last 24 hours) at 05/15/2019 1345 Last data filed at 05/15/2019 1300 Gross per 24 hour Intake 3380.42 ml Output 4925 ml Net -1544.58 ml Physical Exam: General: This is a female in no acute distress sitting up in bed. HEENT: PERRL. Sclerae anicteric. Mucosa pink and moist. No ulcers or exudates Skin: No diaphoresis, lesions noted. +Faint patchy erythema on arms, resolving. Chest: Clear to auscultation bilaterally. CV: RRR, no murmurs. Abdomen: S/NT/ND with NABS. No guarding, rigidity or rebound tenderness. No HSM appreciat ed. Extremities: Pulses strong and equal bilaterally. No c/c/e Neuro: Alert and oriented x 3. Grossly nonfocal exam. CVC: Central Line, DL - no erythema, edema, tenderness or drainage. Dressing clean, dry an d intact. Laboratory Results: Recent Labs 05/13/19 0001 05/13/19 1126 05/14/19 0014 05/15/19 0004 NA 134* -- 136 137 K 2.6* 3.4 3.6 3.4 CL 100 -- 103 104 BICARB 25 -- 27 27 BUN 13 -- 8 10 CR 0.64 -- 0.65 0.64 GLU 178* -- 101* 134* CA 8.1* -- 7.9* 7.7* AST 8 -- 11 12 ALT 13 -- 12 14 AP 83 -- 77 71 TBILI 0.5 -- 0.6 0.4 TP 5.9* -- 5.7* 5.3* ALB 2.8* -- 2.8* 2.6* Recent Labs 05/13/19 0001 05/14/19 0014 05/15/19 0004 WBC 0.35* 0.53* 0.49* RBC 2.64* 2.67* 2.36* HB 7.3* 7.4* 6.6* HCT 21.5* 22.0* 19.2* PLT 17* 9* 4* NEUTROPERC 54.2 49.1* 51.1 LYMPHPERC 14.3* 11.3* 16.3* MONOPERC 28.6* 20.8* 20.4* BASOPERC 0.0 1.9 0.0 EOSPERC 2.9 7.5* 2.0 Meds: Reviewed on rounds, see current MAR for medication list SUMMARY OF PATIENT'S HOSPITALIZATION History of Present Illness: (from H&P) Stephenie Camarillo is a 53 year old female with 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 Her hematogical history da jostin back to 2015 when she noted progressive fatigue. 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 She was working 6 days per week and thought she was working too hard. She left her job in August 2017 to give herself s ome time to feel better. She had been to various physicians in [place] for fatigue without answer s. In January 15, she developed fevers up to 104. She was tested for lyme disease, rheumatologi david conditions which were all negative. She began to notice that her counts were dropping. S he relocated to [facility] from [place] to live with her niece in 06/2018. She saw a local PA in [facility] 07/2018 Meredith Sanchez who did further testing. Labs on 10/07/18 showed normal chemistries, Bilirubin 1.4, hepatitis negative, ESR elevated at 174 with RA, RIOS C3/C4 nega tive. CBC showed WBC 2.4, Hb 10.8, Plt 166K, ANC 1529. She was referred to Dr. Sequeira ( medical oncology) on 10/29. Bone marrow biopsy was performed on 11/05 showing hypercellular mar row (70%) with 18% by morphology and 26% on flow. Mild erythroid hyperplasia and megakaryocy tic atypia. Blast immunophenotype was positive for CD33, CD45 dim, CD34, CD15, CD117, CD 11c , MPO. 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 Cytogenetics were normal. MDS and AML FISH panel was negative. NGS panel was negative for FLT3, NPM1, CEBPA, c-KIT, I DH1, IDH2, TP53. She started Vidaza locally on December 24 however developed a rash to the SQ injection and missed D3, dexamethasone was added for D4-D7. She lives in a travel trailer at her niece's house. Her niece has 5 dogs, 2 chicken, 3 cats and 1 ferret. She is applying fo r disability and not currently working. Her niece owns a PET SPA and she helps out as needed . She has no healthy siblings. One brother in [place] is an alcoholic. Older sister lives i n a mcfp due to vascular dementia and severe diabetes. Since my last visit with Mirian gilman, she was admitted to the hospital 01/14-01/26 [...] only option and she consen martha to [facility] "[id number]: A Multicenter, Randomized, Phase III Registration Trial of Tra nsplantation of NiCord, Ex Vivo Expanded, UCB-derived, Stem and Progenitor Cells, vs. Unma nipulated UCB for Patients With Hematological Malignancies". She was randomized to SOC arm. C3 aza started on 02/21-end 03/01. Tolerated well without complications. MDS (myelodysplastic syndrome) (HCC) 11/30/2018 Initial Diagnosis MDS (myelodysplastic syndrome) (HCC) 12/02/2018 - 12/29/2018 Chemotherapy azaCITIDine (VIDAZA) injection 125 mg, 75 mg/m2 = 125 mg, subcutaneous, ONCE, 1 of 6 cycles 04/15/2019 - Chemotherapy fludarabine (FLUDARA) 42.5 mg in NaCl 0.9 % (NS) IV, 25 mg/m2 = 42.5 mg, intravenous, EVERY 24 HOURS, 0 of 1 cycle cyclophosphamide (CYTOXAN) 60 mg/kg = 4,000 mg in NaCl 0.9 % (NS) IV, 60 mg/kg = 4,000 mg, intravenous, EVERY 24 HOURS, 0 of 1 cycle Hospitalization History: Hematology: #Hematologic Malignancy: MDS Conditioning [...] 10 6 per kg Stem Cell Day: +23 Post-transplant: -Day +21 chimerism ordered per study; PENDING #Pancytopenia likely r/t chemotherapy: WBC/ANC rising slowly -Antimicrobials below -See supportive care #Supportive Care: Growth Factor: Daily filgrastrim started Day +1 and will continue until ANC > 1500 x 2 c onsecutive days. Labs: Continue to check CBC daily Transfusion parameters: -Transfuse PRBCs for HCT <21% if asymptomatic OR <24% if symptomatic -Transfuse PPH for platelet count <10,000 sooner for s/s bleeding GVHD: No acute s/s of aGvHD Prophylaxis/Treatment: Prophylaxis with tacrolimus and MMF per [facility] protocol - Tacrolimus started D-3 (goal 5-15) -Tacrolimus 0.5 mg PO qPM -Tacrolimus 1.0 mg PO qAM -MMF given at a dose of 15 mg/kg TID D-3 to D+60 #?Engraftment Syndrome: notable for weight gain, SOB requiring 1-2L NC, hyperbilirubinemia, and diffuse non-pruritic erythematous maculopapular rash to trunk/back and extremities ~48 hours prior to count appearance -Methylpred 0.5mg/kg/day (05/05-05/09) -Pred 0.25 mg/kg/d (05/10- ) -Next taper due 05/15 Kyle Simpson phase 3 (IRB 20890) Acute GVHD Staging Complete on study visit [...] mL diarrhea/day 2 25-50% BSA 3.1-6 mg/dL 1351-6923 mL diarrhea/day 3 >50% BSA Generalized erythroderma 6.1-15 mg/dL >1500 mL diarrhea/day 4 Generalized erythroderma with bullus formation >15 mg/dL Severe abdominal pain with/without ileus Determine Differential Diagnosis: (Y/N): GVHD:N Drug Reaction: Y Conditioning regimen toxicity:N Infection:N Other (describe): Engraftment vs drug rash (Cefepime) (Y/N): GVHD:N Drug Reaction:N Conditioning regimen toxicity:N TPN:N Infection:N Other (describe): N/A (Y/N): GVHD:N Drug Reaction:N Conditioning regimen toxicity:Y TPN:N Infection:N Other (describe):N/A (Y/N): GVHD:N Drug Reaction:N Conditioning regimen toxicity:Y TPN:N Infection:N Other (describe):N Complete Values: BSA%:18% (faint anterior chest only) Bullae (Y/N):N TBili: 0.5 24H Diarrhea Vol: 350 Severe abd pain (Y/N):N Ileus (Y/N):N Assign Stage: 1 0 0 0 Presumptive/ Confirmed Dx of aGVHD? (Y/N) N N N N HEENT: #Nosebleeds: started 04/30 with intermittent bleeding, controlled -Afrin PRN #Rhinorrhea: 05/13 RVP neg. -claritin daily Pulmonary: Pretransplant PFTs completed on 03/10/19 showed FEV1 of 76% predicted, FVC of 87% predicted and adjusted DLCO of 77% predicted. #Hypoxemia: first noted 04/30 with O2 sats ~88-89%. Improved with lasix. Resolved. As of , O2 sat >90% on RA. -Lasix 60 mg IV PRN, last given 05/08 Cardiovascular: Pretransplant TTE completed on 03/10/2019 showed a LVEF of 64%. #Hx/o PICC line associated DVT:Noted on US 01/17/19 involved both right and left UE.Sh e completed 3 months ofanticoagulationwith apixiban, end date 04/14/19. 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 -s/p Lisinopril 5 mg PO daily (05/07-05/08) -Restarted home triamterene/HCTZ on 05/09 -Hydralazine PRN #Re-evaluation of cardiac function: received cytoxan during conditioning. Increase oxygen r equirements as of 04/30. (05/02) Repeat ECHO LVEF 65-70%. GI: #Mucositis: Improved -Continue mouth rinses -Special mouthwash PRN -Oxycodone 5-15 q4hrs PRN #NIRAJ: worse again on 05/09 but now controlled -Zofran ODT 8 mg q12 hours -Zyprexa 5 mg qHS, started 05/09 -Compazine 5mg AC, started 05/13 -Antiemetics PRN #Abdominal pain/cramping: Improved -Simethicone 80 mg TID PRN #Hemorrhoidal pain: improving -Nifedipine 0.3%-Lidocaine 1.5% TID PRN -Proctozone 2.5% rectal cream TID PRN -Sitz baths after stooling and at least 2-3 times daily #Diarrhea: (04/25) Clostridium difficile negative. (04/25) GI path panel negative. Improvin g. -Imodium PRN #Hyperbilirubinemia: Trending down, Tbili 1.7 today -Monitor LFTs daily #Risk of gastritis: -Pepcid 20 mg BID #Risk for VOD: no e/o this currently -Ursodiol 500 mg PO BID /Renal: No acute issues Derm: #Rash: first noted 05/02, follicular rash localized to upper back with progression to diffu se, confluent maculopapular to trunk/back and all extremities with c/f hyperacute GvHD vs en graftment syndrome. Improving -(05/04) Derm consult: -Rec vaseline to be applied daily with daily dressing change at bx site. Suture to be raegan esvin on 05/18. -Biopsy performed: sparse vacuolar dermatitis with c/f subtle GVHD -Triamcinolone 0.1% oint BID to affected areas, started 05/04 -s/p Methylpred 0.5mg/kg/day (05/05-05/09 -Pred 0.25 mg/kg/d (05/10- ), taper to 10 mg on 05/15 -Atarax 10 mg PO q6hrs PRN for itching, started 05/07 Psych: #Depression: Stable, continue home SSRI. - Lexapro 20 mg PO daily MSK: #Myaglia/Arthralgia: -Claritin 10 mg PO daily, started 05/05 #Bilat posterior leg pain: noted only when standing in setting of count recovery. CK 29. R esolving. Infectious Disease: #Herpes Zoster, recent history: Noted in December, now s/p treatment with IV acyclovirfrom approx 01/10 through 01/16 then transitioned to valacyclovir 1g TID to complete an additional 7dcourse (extended for new lesions).She will continue on valacyclovir(rather than acyc lovir)through day +365 post transplant. -Valacyclovir 500mg BID #Non-neutropenic fever:Noted on 04/17. She was started on cefepime, however blood cul tures with NGTD x 72h and fevers since defervesced.She wasde-escalatedto levaquin pr ophylaxis on 04/20 (although not neutropenic), no fevers since de-escalation. -s/pCefepime (04/17 - 04/20) #NTP fever: noted 04/28 with bld cx positive for strep bacteremia (see below), UA: negative , CXR: negative for infection, trace pleural effusions. Afebrile since 05/03 but with recurr ent fever on 05/11. CXR clear -F/u bld cxs 05/11 -Zosyn (05/07- ), changed from Cefe d/t rash #Strep bacteremia: (04/28) NTP fever with bld cx +strep bacteremia. Repeat bld cx as of : negative. Completed course with zosyn #Prophylaxis: Bacterial: see above Fungal: Posaconazole, level adequate at 0.7 on 04/28 Viral: Valacyclovir CMV: Letermovir PCP: Pentamidine given 05/13 Toxo: Pt is toxo negative, no further testing required. #Routine infectious disease testing -CMV by PCR weekly, starting after day 0. Lab Results Component Value Date CMVQUANTPCR Undetected 05/07/2019 CMVQUANTPCR Undetected 04/30/2019 CMVQUANTPCR Undetected 04/22/2019 CMVQUANTPCR Undetected 04/16/2019 -Asp. Galactomannan weekly, starting after day 0. Lab Results Component Value Date GALACTO Negative 05/09/2019 Fluid/Nutrition/Lytes: #Nutrition: Low bacterial diet #Fluid: not indicated, PO intake adequate #Lytes: Continue to check chemistries daily. Replace per supportive care protocol. Disposition: Pending further count recovery, resolution of fevers and improvement in PO in take. LACY Rutledge [facility] [id number] Mailcode: [id number] [place] [id number] Associated attestation - Suzie Hart MD - 05/15/2019 7:53 PM PSTCenter for Hematolo gic Malignancies - BMT Attending Daily Progress Note/ Discharge Day Attestation Date of service: 05/15/19 I personally saw this patient, performed the bradley elements of the physical examination, and formulated the assessment and plan with the advanced practice provider, Ms Bergeron. Interval history, current medications and laboratories were reviewed. My direct observations and pablo nges are noted below. Subjective/Objective: - Day +23 after UCB for MDS (on [facility] protocol) - ANC in the 250 range, remains on G-CSF - Afebrile w/o infections - Appetite slowly improving. - rehab nursing tech has arrived to [place] to start dc teaching, pending count recovery. Patients Hospital Problem List: Active Hospital Problems 1) *MDS (myelodysplastic syndrome) (HCC) 2) Acute deep vein thrombosis (DVT) of both upper extremities (HCC) 3) Immunocompromised state due to drug therapy 4) Pancytopenia (HCC) Please refer to the GISSEL's note for today for details of assessment and plan. Suzie Hart MD Hematology/Oncology & Bone Marrow Transplantation Program Apple Bergeron PA - 05/14/2019 1:58 PM PST Daily GISSEL Note - Transplant Admit [facility] Attending: Suzie Hart MD [facility] Physician: Sejal De La Torre DO PCP: LACY Perez Date of Admission: 04/15/2019 Hematologic Malignancy: MDS Conditioning regimen: FluCyTBI Date of transplant: 04/22/2019 Donor: CBU 1: [id number]/02 match, CBU 2: [id number]/02 match Reason for admission: Scheduled admission for myeloablative chemotherapy with subsequent st em cell infusion. ID: [id number] yo with MDS admitted for FluCyTBI UCB on [facility]. Hx/o HTN and PICC associated thromb osis 24 hour events/plans: -MDS: admitted for FluCyTBI (on [facility] Trial), currently day +22 -IST: tacrolimus (goal 5-15) with MMF -Pancytopenia: standard transfusion parameters. 1U PPH today. -Platelet alloimmunization: 05/03 Platelet refractory w/u positive - requires HLA matched pl atelets. -NTP fever: first noted 04/28, afebrile since 05/04 but with recurrent fever on 05/11. Cont inue zosyn. Repeat bld cxs NGTD, CXR 05/11 clear. -Strep bacteremia: (04/28) NTP fever with bld cx +strep bacteremia. Repeat bld cx as of : negative. Continue zosyn until no longer neutropenic and then dc. -NIRAJ: recurrent on 05/09, restarted zofran BID and added zyprexa 5 mg qHS; scheduled compaz ine with meals -Diarrhea: (04/25) Clostridium difficile negative. (04/25) GI path panel negative. Diarrh ea and hemorrhoid improving. -Imodium PRN -Nifedipine 0.3%-Lidocaine 1.5% TID PRN - pt prefers this medication vs. Proctozone -Rash: first noted 05/02, follicular rash localized to upper back with progression to diffu se, confluent pruritic maculopapular with c/f hyperacute GvHD vs engraftment syndrome vs guido g rxn from cefepime. Improving s/p stopping cefepime. Derm consulted and biopsy shows sparse vacuolar dermatitis. -Suture to be removed on 05/18. -Triamcinolone 0.1% oint BID to affected areas, started 05/04 -?Engraftment Syndrome: notable for weight gain, SOB requiring 1-2L NC, hyperbilirubinemia, and diffuse non-pruritic erythematous maculopapular rash to trunk/back and extremities ~48 hours prior to count appearance -Methylpred 0.5mg/kg/day (05/05-05/09) -Pred 0.25 mg/kg/d (20 mg), (05/10- ), taper to 10 mg on 05/15 -Bilat posterior leg pain: noted when standing. CK normal. Pain improving. -Lytes: standard electrolyte replacement. -HypoK: 20mEq KCL PO BID + PRN replacements Subjective: Legs are feeling better today and she's feeling better overall. Still with jaxon y low appetite. Objective: Last Vitals: BP 135/78 (BP Location: Left lower arm, Patient Position: Sitting) | Pulse 78 | Temp 36.8 C (98.2 F) (Oral) | Resp 16 | Ht 1.591 m (5' 2.64") | Wt 63.8 kg (140 l b 10.5 oz) | SpO2 93% | BMI 25.20 kg/m | BSA 1.68 m 24 Hour Vital Min/Max: Systolic (24hrs), Av , Min:109 , Max:135 Diastolic (24hrs), Av, Min:61, Max:78 Pulse Min: 77 Max: 100 Temp Min: 36.6 C (97.9 F) Max: 37.6 C (99.7 F) Resp Min: 16 Max: 18 SpO2 Min: 91 % Max: 96 % Intake/Output Summary (Last 24 hours) at 05/14/2019 1358 Last data filed at 05/14/2019 1220 Gross per 24 hour Intake 3795 ml Output 3855 ml Net -60 ml Physical Exam: General: This is a female in no acute distress sitting up in bed. HEENT: PERRL. Sclerae anicteric. Mucosa pink and moist. No ulcers or exudates Skin: No diaphoresis, lesions noted. +Faint patchy erythema on arms, resolving. Chest: Clear to auscultation bilaterally. CV: RRR, no murmurs. Abdomen: S/NT/ND with NABS. No guarding, rigidity or rebound tenderness. No HSM appreciat ed. Extremities: Pulses strong and equal bilaterally. No c/c/e Neuro: Alert and oriented x 3. Grossly nonfocal exam. CVC: Central Line, DL - no erythema, edema, tenderness or drainage. Dressing clean, dry an d intact. Laboratory Results: Recent Labs 05/12/19 0021 05/13/19 0001 05/13/19 1126 05/14/19 0014 NA 137 134* -- 136 K 3.1* 2.6* 3.4 3.6 CL 102 100 -- 103 BICARB 28 25 -- 27 BUN 13 13 -- 8 CR 0.67 0.64 -- 0.65 GLU 115* 178* -- 101* CA 8.0* 8.1* -- 7.9* AST 5 8 -- 11 ALT 12 13 -- 12 AP 87 83 -- 77 TBILI 0.5 0.5 -- 0.6 TP 6.1* 5.9* -- 5.7* ALB 2.8* 2.8* -- 2.8* Recent Labs 05/12/19 0021 05/13/19 0001 05/14/19 0014 WBC 0.60* 0.35* 0.53* RBC 3.03* 2.64* 2.67* HB 8.4* 7.3* 7.4* HCT 24.6* 21.5* 22.0* PLT 5* 17* 9* NEUTROPERC 55.6 54.2 49.1* LYMPHPERC 14.3* 14.3* 11.3* MONOPERC 24.6* 28.6* 20.8* BASOPERC 0.8 0.0 1.9 EOSPERC 2.4 2.9 7.5* Meds: Reviewed on rounds, see current MAR for medication list SUMMARY OF PATIENT'S HOSPITALIZATION History of Present Illness: (from H&P) Stephenie Camarillo is a 53 year old female with 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 Her hematogical history da jostin back to 2015 when she noted progressive fatigue. 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 She was working 6 days per week and thought she was working too hard. She left her job in August 2017 to give herself s ome time to feel better. She had been to various physicians in [place] for fatigue without answer s. In January 15, she developed fevers up to 104. She was tested for lyme disease, rheumatologi david conditions which were all negative. She began to notice that her counts were dropping. S he relocated to [facility] from [place] to live with her niece in 06/2018. She saw a local PA in [facility] 07/2018 Meredith Sanchez who did further testing. Labs on 10/07/18 showed normal chemistries, Bilirubin 1.4, hepatitis negative, ESR elevated at 174 with RA, RIOS C3/C4 nega tive. CBC showed WBC 2.4, Hb 10.8, Plt 166K, ANC 1529. She was referred to Dr. Sequeira ( medical oncology) on 10/29. Bone marrow biopsy was performed on 11/05 showing hypercellular mar row (70%) with 18% by morphology and 26% on flow. Mild erythroid hyperplasia and megakaryocy tic atypia. Blast immunophenotype was positive for CD33, CD45 dim, CD34, CD15, CD117, CD 11c , MPO. 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 Cytogenetics were normal. MDS and AML FISH panel was negative. NGS panel was negative for FLT3, NPM1, CEBPA, c-KIT, I DH1, IDH2, TP53. She started Vidaza locally on December 24 however developed a rash to the SQ injection and missed D3, dexamethasone was added for D4-D7. She lives in a travel trailer at her niece's house. Her niece has 5 dogs, 2 chicken, 3 cats and 1 ferret. She is applying fo r disability and not currently working. Her niece owns a PET SPA and she helps out as needed . She has no healthy siblings. One brother in [place] is an alcoholic. Older sister lives i n a mcfp due to vascular dementia and severe diabetes. Since my last visit with Mirian gilman, she was admitted to the hospital 01/14-01/26 [...] only option and she consen martha to [facility] "[id number]: A Multicenter, Randomized, Phase III Registration Trial of Tra nsplantation of NiCord, Ex Vivo Expanded, UCB-derived, Stem and Progenitor Cells, vs. Unma nipulated UCB for Patients With Hematological Malignancies". She was randomized to SOC arm. C3 aza started on 02/21-end 03/01. Tolerated well without complications. MDS (myelodysplastic syndrome) ([facility]) 11/30/2018 Initial Diagnosis MDS (myelodysplastic syndrome) ([facility]) 12/02/2018 - 12/29/2018 Chemotherapy azaCITIDine (VIDAZA) injection 125 mg, 75 mg/m2 = 125 mg, subcutaneous, ONCE, 1 of 6 cycles 04/15/2019 - Chemotherapy fludarabine (FLUDARA) 42.5 mg in NaCl 0.9 % (NS) IV, 25 mg/m2 = 42.5 mg, intravenous, EVERY 24 HOURS, 0 of 1 cycle cyclophosphamide (CYTOXAN) 60 mg/kg = 4,000 mg in NaCl 0.9 % (NS) IV, 60 mg/kg = 4,000 mg, intravenous, EVERY 24 HOURS, 0 of 1 cycle Hospitalization History: Hematology: #Hematologic Malignancy: MDS Conditioning [...] 10 6 per kg Stem Cell Day: +22 Post-transplant: -Day +21 chimerism ordered per study; PENDING #Pancytopenia likely r/t chemotherapy: WBC/ANC rising slowly -Antimicrobials below -See supportive care #Supportive Care: Growth Factor: Daily filgrastrim started Day +1 and will continue until ANC > 1500 x 2 c onsecutive days. Labs: Continue to check CBC daily Transfusion parameters: -Transfuse PRBCs for HCT <21% if asymptomatic OR <24% if symptomatic -Transfuse PPH for platelet count <10,000 sooner for s/s bleeding GVHD: No acute s/s of aGvHD Prophylaxis/Treatment: [facility] - Tacrolimus started D-3 (goal 5-15) -Tacrolimus 0.5 mg PO qPM -Tacrolimus 1.0 mg PO qAM -MMF given at a dose of 15 mg/kg TID D-3 to D+60 #?Engraftment Syndrome: notable for weight gain, SOB requiring 1-2L NC, hyperbilirubinemia, and diffuse non-pruritic erythematous maculopapular rash to trunk/back and extremities ~48 hours prior to count appearance -Methylpred 0.5mg/kg/day (05/05-05/09) -Pred 0.25 mg/kg/d (05/10- ) -Next taper due 05/15 Kyle Simpson phase 3 (IRB 04179) Acute GVHD Staging Complete on study visit [...] mL diarrhea/day 2 25-50% BSA 3.1-6 mg/dL 6017-7991 mL diarrhea/day 3 >50% BSA Generalized erythroderma 6.1-15 mg/dL >1500 mL diarrhea/day 4 Generalized erythroderma with bullus formation >15 mg/dL Severe abdominal pain with/without ileus Determine Differential Diagnosis: (Y/N): GVHD:N Drug Reaction: Y Conditioning regimen toxicity:N Infection:N Other (describe): Engraftment vs drug rash (Cefepime) (Y/N): GVHD:N Drug Reaction:N Conditioning regimen toxicity:N TPN:N Infection:N Other (describe): N/A (Y/N): GVHD:N Drug Reaction:N Conditioning regimen toxicity:Y TPN:N Infection:N Other (describe):N/A (Y/N): GVHD:N Drug Reaction:N Conditioning regimen toxicity:Y TPN:N Infection:N Other (describe):N Complete Values: BSA%:18% (faint anterior chest only) Bullae (Y/N):N TBili: 0.5 24H Diarrhea Vol: 350 Severe abd pain (Y/N):N Ileus (Y/N):N Assign Stage: 1 0 0 0 Presumptive/ Confirmed Dx of aGVHD? (Y/N) N N N N HEENT: #Nosebleeds: started 04/30 with intermittent bleeding, controlled -Afrin PRN #Rhinorrhea: 05/13 RVP neg. -claritin daily Pulmonary: Pretransplant PFTs completed on 03/10/19 showed FEV1 of 76% predicted, FVC of 87% predicted and adjusted DLCO of 77% predicted. #Hypoxemia: first noted 04/30 with O2 sats ~88-89%. Improved with lasix. Resolved. As of , O2 sat >90% on RA. -Lasix 60 mg IV PRN, last given 05/08 Cardiovascular: Pretransplant TTE completed on 03/10/2019 showed a LVEF of 64%. #Hx/o PICC line associated DVT:Noted on US 01/17/19 involved both right and left UE.Sh e completed 3 months ofanticoagulationwith apixiban, end date 04/14/19. 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 -s/p Lisinopril 5 mg PO daily (05/07-05/08) -Restarted home triamterene/HCTZ on 05/09 -Hydralazine PRN #Re-evaluation of cardiac function: received cytoxan during conditioning. Increase oxygen r equirements as of 04/30. (05/02) Repeat ECHO LVEF 65-70%. GI: #Mucositis: Improved -Continue mouth rinses -Special mouthwash PRN -Oxycodone 5-15 q4hrs PRN #NIRAJ: worse again on 05/09 but now controlled -Zofran ODT 8 mg q12 hours -Zyprexa 5 mg qHS, started 05/09 -Compazine 5mg AC, started 05/13 -Antiemetics PRN #Abdominal pain/cramping: Improved -Simethicone 80 mg TID PRN #Hemorrhoidal pain: improving -Nifedipine 0.3%-Lidocaine 1.5% TID PRN -Proctozone 2.5% rectal cream TID PRN -Sitz baths after stooling and at least 2-3 times daily #Diarrhea: (04/25) Clostridium difficile negative. (04/25) GI path panel negative. Balbir g. -Imodium PRN #Hyperbilirubinemia: Trending down, Tbili 1.7 today -Monitor LFTs daily #Risk of gastritis: -Pepcid 20 mg BID #Risk for VOD: no e/o this currently -Ursodiol 500 mg PO BID /Renal: No acute issues Derm: #Rash: first noted 05/02, follicular rash localized to upper back with progression to diffu se, confluent maculopapular to trunk/back and all extremities with c/f hyperacute GvHD vs en graftment syndrome. Improving -(05/04) Derm consult: -Rec vaseline to be applied daily with daily dressing change at bx site. Suture to be raegan esvin on 05/18. -Biopsy performed: sparse vacuolar dermatitis with c/f subtle GVHD -Triamcinolone 0.1% oint BID to affected areas, started 05/04 -s/p Methylpred 0.5mg/kg/day (05/05-05/09 -Pred 0.25 mg/kg/d (05/10- ), taper to 10 mg on 05/15 -Atarax 10 mg PO q6hrs PRN for itching, started 05/07 Psych: #Depression: Stable, continue home SSRI. - Lexapro 20 mg PO daily MSK: #Myaglia/Arthralgia: -Claritin 10 mg PO daily, started 05/05 #Bilat posterior leg pain: noted only when standing. CK 29. Monitor Infectious Disease: #Herpes Zoster, recent history: Noted in December, now s/p treatment with IV acyclovirfrom approx 01/10 through 01/16 then transitioned to valacyclovir 1g TID to complete an additional 7dcourse (extended for new lesions).She will continue on valacyclovir(rather than acyc lovir)through day +365 post transplant. -Valacyclovir 500mg BID #Non-neutropenic fever:Noted on 04/17. She was started on cefepime, however blood cul tures with NGTD x 72h and fevers since defervesced.She wasde-escalatedto levaquin pr ophylaxis on 04/20 (although not neutropenic), no fevers since de-escalation. -s/pCefepime (04/17 - 04/20) #NTP fever: noted 04/28 with bld cx positive for strep bacteremia (see below), UA: negative , CXR: negative for infection, trace pleural effusions. Afebrile since 05/03 but with recurr ent fever on 05/11. CXR clear -F/u bld cxs 05/11 -Zosyn (05/07- ), changed from Cefe d/t rash #Strep bacteremia: (04/28) NTP fever with bld cx +strep bacteremia. Repeat bld cx as of : negative. -(05/02) Per ID, broad spectrum abx to be continued x 7d (~05/09) or until no longer neutr openic (whichever is last) #Prophylaxis: Bacterial: see above Fungal: Posaconazole, level adequate at 0.7 on 04/28 Viral: Valacyclovir CMV: Letermovir PCP: Pentamidine given 05/13 Toxo: Pt is toxo negative, no further testing required. #Routine infectious disease testing -CMV by PCR weekly, starting after day 0. Lab Results Component Value Date CMVQUANTPCR Undetected 05/07/2019 CMVQUANTPCR Undetected 04/30/2019 CMVQUANTPCR Undetected 04/22/2019 CMVQUANTPCR Undetected 04/16/2019 -Asp. Galactomannan weekly, starting after day 0. Lab Results Component Value Date GALACTO Negative 05/09/2019 Fluid/Nutrition/Lytes: #Nutrition: Low bacterial diet #Fluid: Assess daily in recent setting of FVO #Lytes: Continue to check chemistries daily. Replace per supportive care protocol. Disposition: Pending further count recovery, resolution of fevers and improvement in PO in take. LACY Rutledge [facility] [id number] Mailcode: [address] [place] [phone] Associated attestation - Suzie Hart MD - 05/14/2019 9:29 PM PSTCenter for Hematolo gic Malignancies - BMT Attending Daily Progress Note/ Discharge Day Attestation Date of service: 05/14/19 I personally saw this patient, performed the bradley elements of the physical examination, and formulated the assessment and plan with the advanced practice provider, Ms Bergeron. Interval history, current medications and laboratories were reviewed. My direct observations and pablo nges are noted below. Subjective/Objective: - Day +22 after UCB for MDS (on [facility] protocol) - Starting to feel better - Not much appetite yet, "nothing tastes good" - WBC increasin, ANC 260 today. Still transfusion dependent. Patients Hospital Problem List: Active Hospital Problems 1) *MDS (myelodysplastic syndrome) (HCC) 2) Acute deep vein thrombosis (DVT) of both upper extremities (HCC) 3) Immunocompromised state due to drug therapy 4) Pancytopenia (HCC) Please refer to the GISSEL's note for today for details of assessment and plan. Suzie Hart MD Hematology/Oncology & Bone Marrow Transplantation Program MustafaMaegan acosta, LINE STAKER - 05/13/2019 7:38 PM PSTFormatting of this note might be different fro m the original. Daily GISSEL Note - Transplant Admit [facility] for Hematologic Malignancies Attending: Sejal De La Torre DO [facility] Physician: Sejal De La Torre DO PCP: LACY Perez Date of Admission: 04/15/2019 Hematologic Malignancy: MDS Conditioning regimen: FluCyTBI Date of transplant: 04/22/2019 Donor: CBU 1: [id number]/02 match, CBU 2: [id number]/02 match Reason for admission: Scheduled admission for myeloablative chemotherapy with subsequent st em cell infusion. ID: 53 yo with MDS admitted for FluCyTBI UCB on [facility]. Hx/o HTN and PICC associated thromb osis 24 hour events/plans: -MDS: admitted for FluCyTBI (on [facility] Trial), currently day +21 -IST: tacrolimus (goal 5-15) with MMF -Pancytopenia: standard transfusion parameters. -Platelet alloimmunization: 05/03 Platelet refractory w/u positive - requires HLA matched pl atelets. -NTP fever: first noted 04/28, afebrile since 05/04 but with recurrent fever on 05/11. Cont inue zosyn. Repeat bld cxs NGTD, CXR 05/11 clear. -Strep bacteremia: (04/28) NTP fever with bld cx +strep bacteremia. Repeat bld cx as of : negative. Continue zosyn until no longer neutropenic and then dc. -HTN: restarted triam/HCTZ on 05/09 (home regimen). Hydralazine PRN -NIRAJ: recurrent on 05/09, restarted zofran BID and added zyprexa 5 mg qHS; scheduled compaz ine with meals -Diarrhea: (04/25) Clostridium difficile negative. (04/25) GI path panel negative. Diarrh ea and hemorrhoid improving. -Imodium PRN -Nifedipine 0.3%-Lidocaine 1.5% TID PRN - pt prefers this medication vs. Proctozone -Rash: first noted 05/02, follicular rash localized to upper back with progression to diffu se, confluent pruritic maculopapular with c/f hyperacute GvHD vs engraftment syndrome vs guido g rxn from cefepime. Improving s/p stopping cefepime. Derm consulted and biopsy shows sparse vacuolar dermatitis. -Suture to be removed on 05/18. -Triamcinolone 0.1% oint BID to affected areas, started 05/04 -?Engraftment Syndrome: notable for weight gain, SOB requiring 1-2L NC, hyperbilirubinemia, and diffuse non-pruritic erythematous maculopapular rash to trunk/back and extremities ~48 hours prior to count appearance -Methylpred 0.5mg/kg/day (05/05-05/09) -Pred 0.25 mg/kg/d (25 mg), (05/10- ), due for taper 05/15 -Bilat posterior leg pain: noted when standing. CK normal. Monitor -Rhinorrhea: 05/13 RVP neg; on daily claritin -Lytes: standard electrolyte replacement. -HypoK: 20mEq KCL PO BID + PRN replacements Subjective: Just had a massage and has heating pad on lower back. Diarrhea and stomach cram ps improved. Objective: Last Vitals: BP 109/67 (BP Location: Left lower arm, Patient Position: Lying on back) | Pu lse 87 | Temp 36.6 C (97.9 F) (Oral) | Resp 18 | Ht 1.591 m (5' 2.64") | Wt 64 kg (1 41 lb 1.5 oz) | SpO2 95% | BMI 25.28 kg/m | BSA 1.68 m 24 Hour Vital Min/Max: Systolic (24hrs), Av , Min:108 , Max:132 Diastolic (24hrs), Av, Min:57, Max:79 Pulse Min: 82 Max: 100 Temp Min: 36.4 C (97.5 F) Max: 37.7 C (99.9 F) Resp Min: 18 Max: 18 SpO2 Min: 89 % Max: 96 % Intake/Output Summary (Last 24 hours) at 05/13/2019 193 Last data filed at 05/13/2019 1733 Gross per 24 hour Intake 3339 ml Output 3555 ml Net -216 ml Physical Exam: General: This is a female in no acute distress sitting up in bed. HEENT: PERRL. Sclerae anicteric. Mucosa pink and moist. No ulcers or exudates Skin: No diaphoresis, lesions noted. +Diffuse erythematous maculopapular rash- mostly reso lved; now only on anterior chest Chest: Clear to auscultation bilaterally. CV: RRR, no murmurs. Abdomen: S/NT/ND with NABS. No guarding, rigidity or rebound tenderness. No HSM appreciat ed. Extremities: Pulses strong and equal bilaterally. No c/c/e Neuro: Alert and oriented x 3. Grossly nonfocal exam. CVC: Central Line, DL - no erythema, edema, tenderness or drainage. Dressing clean, dry an d intact. Laboratory Results: Recent Labs 05/11/1910205/12/19 0021 05/13/19 0001 05/13/19 1126 NA 137 137 134* -- K 3.7 3.1* 2.6* 3.4 CL 105 102 100 -- BICARB 25 28 25 -- BUN 13 -- CR 0.62 0.67 0.64 -- GLU 99 115* 178* -- CA 8.3* 8.0* 8.1* -- AST 4 5 8 -- ALT 12 13 -- AP 93 87 83 -- TBILI 0.8 0.5 0.5 -- TP 6.0* 6.1* 5.9* -- ALB 2.8* 2.8* 2.8* -- Recent Labs 05/11/19 01005/12/19 0021 05/13/19 0001 WBC 0.56* 0.60* 0.35* RBC 3.02* 3.03* 2.64* HB 8.2* 8.4* 7.3* HCT 24.8* 24.6* 21.5* PLT 4* 5* 17* NEUTROPERC 58.9 55.6 54.2 LYMPHPERC 8.9* 14.3* 14.3* MONOPERC 25.0* 24.6* 28.6* BASOPERC 1.8 0.8 0.0 EOSPERC 3.6* 2.4 2.9 Meds: Reviewed on rounds, see current MAR for medication list SUMMARY OF PATIENT'S HOSPITALIZATION History of Present Illness: (from H&P) Stephenie Camarillo is a 53 year old female with 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 Her hematogical history da jostin back to 2015 when she noted progressive fatigue. 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 She was working 6 days per week and thought she was working too hard. She left her job in August 2017 to give herself s ome time to feel better. She had been to various physicians in [place] for fatigue without answer s. In January 15, she developed fevers up to 104. She was tested for lyme disease, rheumatologi david conditions which were all negative. She began to notice that her counts were dropping. S he relocated to [facility] from [place] to live with her niece in 06/2018. She saw a local PA in [facility] 07/2018 Meredith Sanchez who did further testing. Labs on 10/07/18 showed normal chemistries, Bilirubin 1.4, hepatitis negative, ESR elevated at 174 with RA, RIOS C3/C4 nega tive. CBC showed WBC 2.4, Hb 10.8, Plt 166K, ANC 1529. She was referred to Dr. Sequeira ( medical oncology) on 10/29. Bone marrow biopsy was performed on 11/05 showing hypercellular mar row (70%) with 18% by morphology and 26% on flow. Mild erythroid hyperplasia and megakaryocy tic atypia. Blast immunophenotype was positive for CD33, CD45 dim, CD34, CD15, CD117, CD 11c , MPO. 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 Cytogenetics were normal. MDS and AML FISH panel was negative. NGS panel was negative for FLT3, NPM1, CEBPA, c-KIT, I DH1, IDH2, TP53. She started Vidaza locally on December 24 however developed a rash to the SQ injection and missed D3, dexamethasone was added for D4-D7. She lives in a travel trailer at her niece's house. Her niece has 5 dogs, 2 chicken, 3 cats and 1 ferret. She is applying fo r disability and not currently working. Her niece owns a PET [employer] and she helps out as needed . She has no healthy siblings. One brother in [place] is an alcoholic. Older sister lives i n a mcfp due to vascular dementia and severe diabetes. Since my last visit with Mirian gilman, she was admitted to the hospital 01/14-01/26 [...] only option and she consen martha to [facility] "[id number]: A Multicenter, Randomized, Phase III Registration Trial of Tra nsplantation of NiCord, Ex Vivo Expanded, UCB-derived, Stem and Progenitor Cells, vs. Unma nipulated UCB for Patients With Hematological Malignancies". She was randomized to SOC arm. C3 aza started on 02/21-end 03/01. Tolerated well without complications. MDS (myelodysplastic syndrome) (HCC) 11/30/2018 Initial Diagnosis MDS (myelodysplastic syndrome) (HCC) 12/02/2018 - 12/29/2018 Chemotherapy azaCITIDine (VIDAZA) injection 125 mg, 75 mg/m2 = 125 mg, subcutaneous, ONCE, 1 of 6 cycles 04/15/2019 - Chemotherapy fludarabine (FLUDARA) 42.5 mg in NaCl 0.9 % (NS) IV, 25 mg/m2 = 42.5 mg, intravenous, EVERY 24 HOURS, 0 of 1 cycle cyclophosphamide (CYTOXAN) 60 mg/kg = 4,000 mg in NaCl 0.9 % (NS) IV, 60 mg/kg = 4,000 mg, intravenous, EVERY 24 HOURS, 0 of 1 cycle Hospitalization History: Hematology: #Hematologic Malignancy: MDS Conditioning [...] 10 6 per kg Stem Cell Day: +21 Post-transplant: -Day +21 chimerism ordered per study; PENDING #Pancytopenia likely r/t chemotherapy: -Antimicrobials below -See supportive care #Supportive Care: Growth Factor: Daily filgrastrim started Day +1 and will continue until ANC > 1500 x 2 c onsecutive days. Labs: Continue to check CBC daily Transfusion parameters: -Transfuse PRBCs for HCT <21% if asymptomatic OR <24% if symptomatic -Transfuse PPH for platelet count <10,000 sooner for s/s bleeding GVHD: No acute s/s of aGvHD Prophylaxis/Treatment: Prophylaxis with tacrolimus and MMF per [facility] protocol - Tacrolimus started D-3 (goal 5-15) -Tacrolimus 0.5 mg PO qPM -Tacrolimus 1.0 mg PO qAM -MMF given at a dose of 15 mg/kg TID D-3 to D+60 #?Engraftment Syndrome: notable for weight gain, SOB requiring 1-2L NC, hyperbilirubinemia, and diffuse non-pruritic erythematous maculopapular rash to trunk/back and extremities ~48 hours prior to count appearance -Methylpred 0.5mg/kg/day (05/05-05/09) -Pred 0.25 mg/kg/d (05/10- ) -Next taper due 05/15 Kyle Simpson phase 3 (IRB 55246) Acute GVHD Staging Complete on study visit [...] mL diarrhea/day 2 25-50% BSA 3.1-6 mg/dL 1763-5005 mL diarrhea/day 3 >50% BSA Generalized erythroderma 6.1-15 mg/dL >1500 mL diarrhea/day 4 Generalized erythroderma with bullus formation >15 mg/dL Severe abdominal pain with/without ileus Determine Differential Diagnosis: (Y/N): GVHD:N Drug Reaction: Y Conditioning regimen toxicity:N Infection:N Other (describe): Engraftment vs drug rash (Cefepime) (Y/N): GVHD:N Drug Reaction:N Conditioning regimen toxicity:N TPN:N Infection:N Other (describe): N/A (Y/N): GVHD:N Drug Reaction:N Conditioning regimen toxicity:Y TPN:N Infection:N Other (describe):N/A (Y/N): GVHD:N Drug Reaction:N Conditioning regimen toxicity:Y TPN:N Infection:N Other (describe):N Complete Values: BSA%:18% (faint anterior chest only) Bullae (Y/N):N TBili: 0.5 24H Diarrhea Vol: 350 Severe abd pain (Y/N):N Ileus (Y/N):N Assign Stage: 1 0 0 0 Presumptive/ Confirmed Dx of aGVHD? (Y/N) N N N N HEENT: #Nosebleeds: started 04/30 with intermittent bleeding, controlled -Afrin PRN #Rhinorrhea: 05/13 RVP neg. -claritin daily Pulmonary: Pretransplant PFTs completed on 03/10/19 showed FEV1 of 76% predicted, FVC of 87% predicted and adjusted DLCO of 77% predicted. #Hypoxemia: first noted 04/30 with O2 sats ~88-89%. Improved with lasix. Resolved. As of , O2 sat >90% on RA. -Lasix 60 mg IV PRN, last given 05/08 Cardiovascular: Pretransplant TTE completed on 03/10/2019 showed a LVEF of 64%. #Hx/o PICC line associated DVT:Noted on US 01/17/19 involved both right and left UE.Sh liana completed 3 months ofanticoagulationwith apixiban, end date 04/14/19. 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 -s/p Lisinopril 5 mg PO daily (05/07-05/08) -Restarted home triamterene/HCTZ on 05/09 -Hydralazine PRN #Re-evaluation of cardiac function: received cytoxan during conditioning. Increase oxygen r equirements as of 04/30. (05/02) Repeat ECHO LVEF 65-70%. GI: #Mucositis: Improved -Continue mouth rinses -Special mouthwash PRN -Oxycodone 5-15 q4hrs PRN #NIRAJ: worse again on 05/09, -Zofran ODT 8 mg q12 hours -Zyprexa 5 mg qHS, started 05/09 -Compazine 5mg AC, started 05/13 -Antiemetics PRN #Abdominal pain/cramping: Improved -Simethicone 80 mg TID PRN #Hemorrhoidal pain: improving -Nifedipine 0.3%-Lidocaine 1.5% TID PRN -Proctozone 2.5% rectal cream TID PRN -Sitz baths after stooling and at least 2-3 times daily #Diarrhea: (04/25) Clostridium difficile negative. (04/25) GI path panel negative. Improvin g. -Imodium PRN #Hyperbilirubinemia: Trending down, Tbili 1.7 today -Monitor LFTs daily #Risk of gastritis: -Pepcid 20 mg BID #Risk for VOD: no e/o this currently -Ursodiol 500 mg PO BID /Renal: No acute issues Derm: #Rash: first noted 05/02, follicular rash localized to upper back with progression to diffu se, confluent maculopapular to trunk/back and all extremities with c/f hyperacute GvHD vs en graftment syndrome. Improving -(05/04) Derm consult: -Rec vaseline to be applied daily with daily dressing change at bx site. Suture to be raegan esvin on 05/18. -Biopsy performed: sparse vacuolar dermatitis with c/f subtle GVHD -Triamcinolone 0.1% oint BID to affected areas, started 05/04 -s/p Methylpred 0.5mg/kg/day (05/05-05/09 -Pred 0.25 mg/kg/d (05/10- ), due for taper 05/15 -Atarax 10 mg PO q6hrs PRN for itching, started 05/07 Psych: #Depression: Stable, continue home SSRI. - Lexapro 20 mg PO daily MSK: #Myaglia/Arthralgia: -Claritin 10 mg PO daily, started 05/05 #Bilat posterior leg pain: noted only when standing. CK 29. Monitor Infectious Disease: #Herpes Zoster, recent history: Noted in December, now s/p treatment with IV acyclovirfrom approx 01/10 through 01/16 then transitioned to valacyclovir 1g TID to complete an additional 7dcourse (extended for new lesions).She will continue on valacyclovir(rather than acyc lovir)through day +365 post transplant. -Valacyclovir 500mg BID #Non-neutropenic fever:Noted on 04/17. She was started on cefepime, however blood cul tures with NGTD x 72h and fevers since defervesced.She wasde-escalatedto levaquin pr ophylaxis on 04/20 (although not neutropenic), no fevers since de-escalation. -s/pCefepime (04/17 - 04/20) #NTP fever: noted 04/28 with bld cx positive for strep bacteremia (see below), UA: negative , CXR: negative for infection, trace pleural effusions. Afebrile since 05/03 but with recurr ent fever on 05/11. CXR clear -F/u bld cxs 05/11 -Zosyn (05/07- ), changed from Cefe d/t rash #Strep bacteremia: (04/28) NTP fever with bld cx +strep bacteremia. Repeat bld cx as of : negative. -(05/02) Per ID, broad spectrum abx to be continued x 7d (~05/09) or until no longer neutr openic (whichever is last) #Prophylaxis: Bacterial: see above Fungal: Posaconazole, level adequate at 0.7 on 04/28 Viral: Valacyclovir CMV: Letermovir PCP: Pentamidine given 05/13 Toxo: Pt is toxo negative, no further testing required. #Routine infectious disease testing -CMV by PCR weekly, starting after day 0. Lab Results Component Value Date CMVQUANTPCR Undetected 05/07/2019 CMVQUANTPCR Undetected 04/30/2019 CMVQUANTPCR Undetected 04/22/2019 CMVQUANTPCR Undetected 04/16/2019 -Asp. Galactomannan weekly, starting after day 0. Lab Results Component Value Date GALACTO Negative 05/09/2019 Fluid/Nutrition/Lytes: #Nutrition: Low bacterial diet #Fluid: Assess daily in recent setting of FVO #Lytes: Continue to check chemistries daily. Replace per supportive care protocol. Disposition: Pending further count recovery, resolution of fevers and improvement in PO in take. ELIECER Yoo [facility] [address] Mailcode: [address] [place] [phone] Associated attestation - Sejal De La Torre DO - 05/13/2019 8:39 PM PSTHematologic Malign ancies/Bone Marrow Transplant Inpatient Attending Progress Note: I rounded today in conjunction with the Advanced Practice Provider. I saw the patient, reviewed the history and relevant studies, and developed an assessment a nd plan. 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 Subjective: Reports feeling well. Appetite remains low with persistent nausea. Rash continu es to heal. No diarrhea. Objective: BP 109/67 (BP Location: Left lower arm, Patient Position: Lying on back) | Puls e 87 | Temp 36.6 C (97.9 F) (Oral) | Resp 18 | Ht 1.591 m (5' 2.64") | Wt 64 kg (141 lb 1.5 oz) | SpO2 95% | BMI 25.28 kg/m | BSA 1.68 m General: This is a female in no acute distress sitting in the bed. Pleasant and cooperative. HEENT: Erythema noted on buccal mucosa Skin: No diaphoresis, lesions noted. Resolved rash (15% BSA-faded on chest, back) Chest: CTA BL No wheezing bilaterally. CV: RRR, no murmurs. Abdomen: S/NT/ND with NABS. No guarding, rigidity or rebound tenderness. No HSM appreciat ed. Extremities: Pulses strong and equal bilaterally. No c/c/+no edema Neuro: Alert and oriented x 3. Grossly nonfocal exam. CVC: Central Line, DL - no erythema, edema, tenderness or drainage. Dressing clean, dry an d intact. Please see the Advanced Practice Provider documentation from today for the details regardin g assessment and plan. Stephenie Camarillo is a 53 y.o. female with the following hospitalization problem list: Patients Hospital Problem List: Active Hospital Problems 1) *MDS (myelodysplastic syndrome) (HCC) 2) Acute deep vein thrombosis (DVT) of both upper extremities (HCC) Developed while hospitalized for shingles and had PICC in 3) Immunocompromised state due to drug therapy 4) Pancytopenia (HCC) Plans today include: -D21 FluCyTBI UCB (double SOC) on [facility], early engraftment noted -GVHD ppx-MMF until D+60 and tacrolimus goal 5-15. Level 4 on 05/11/19. Increased to goal. Check PB chimersims 05/13/19. -ANC stable. Continue G-CSF -Strep bacteremia- Noted on 04/28. Clear on 04/29/19. Switched cefepime to zosyn 05/07/19 due to worsening rash. -Possible engraftment syndrome-Derm bx consistent with possible engraftment vs GVHD vs drug rash. Improved after stopping cefepime. On 0.5 mg/kg/d prednisone since 05/05. Plan to taper as tolerated, on prednisone 0.25 mg/kg/d 05/10/19, plan to taper every 5 days to off. Next taper 05/15/19. -Diarrhea-C Diff and pathogen panel negative. Imodium. Improved. -Continue supportive care Sejal De La Torre DO Assistant Sales Center Manager Maegan Mustafa FNP - 05/12/2019 7:38 PM PSTFormatting of this note might be different fro m the original. Daily GISSEL Note - Transplant Admit Center for Hematologic Malignancies Attending: Sejal De La Torre DO [facility] Physician: Sejal De La Torre DO PCP: LACY Perez Date of Admission: 04/15/2019 Hematologic Malignancy: MDS Conditioning regimen: FluCyTBI Date of transplant: 04/22/2019 Donor: CBU 1: [id number]/02 match, CBU 2: [id number]/02 match Reason for admission: Scheduled admission for myeloablative chemotherapy with subsequent st em cell infusion. ID: 53 yo with MDS admitted for FluCyTBI UCB on [facility]. Hx/o HTN and PICC associated thromb osis 24 hour events/plans: -MDS: admitted for FluCyTBI (on [facility] Trial), currently day +20 -IST: tacrolimus (goal 5-15) with MMF -Pancytopenia: standard transfusion parameters. WBC/ANC slowly rising c/w early neutrophil engraftment. -Platelet alloimmunization: 05/03 Platelet refractory w/u positive - requires HLA matched pl atelets. -NTP fever: first noted 04/28, afebrile since 05/04 but with recurrent fever on 05/11. Cont inue zosyn. Repeat bld cxs NGTD, CXR 05/11 clear. -Strep bacteremia: (04/28) NTP fever with bld cx +strep bacteremia. Repeat bld cx as of : negative. Continue zosyn until no longer neutropenic and then dc. -HTN: restarted triam/HCTZ on 05/09 (home regimen). Hydralazine PRN -NIRAJ: recurrent on 05/09, restarted zofran BID and added zyprexa 5 mg qHS with improvement. -Diarrhea: (04/25) Clostridium difficile negative. (04/25) GI path panel negative. Diarrh ea and hemorrhoid improving. -Imodium PRN -Nifedipine 0.3%-Lidocaine 1.5% TID PRN - pt prefers this medication vs. Proctozone -Rash: first noted 05/02, follicular rash localized to upper back with progression to diffu se, confluent pruritic maculopapular with c/f hyperacute GvHD vs engraftment syndrome vs guido g rxn from cefepime. Improving s/p stopping cefepime. Derm consulted and biopsy shows sparse vacuolar dermatitis. -Suture to be removed on 05/18. -Triamcinolone 0.1% oint BID to affected areas, started 05/04 -?Engraftment Syndrome: notable for weight gain, SOB requiring 1-2L NC, hyperbilirubinemia, and diffuse non-pruritic erythematous maculopapular rash to trunk/back and extremities ~48 hours prior to count appearance -Methylpred 0.5mg/kg/day (05/05-05/09) -Pred 0.25 mg/kg/d (25 mg), starting 05/10 -Bilat posterior leg pain: noted when standing. CK normal. Monitor -Lytes: standard electrolyte replacement. KCL and Mag repleted today Subjective: Back of legs (mid thigh to mid calf) hurt when standing. Objective: Last Vitals: BP 124/69 (BP Location: Left lower arm, Patient Position: Sitting) | Pulse 87 | Temp 36.6 C (97.9 F) (Oral) | Resp 18 | Ht 1.591 m (5' 2.64") | Wt 63.8 kg (140 l b 10.5 oz) | SpO2 93% | BMI 25.20 kg/m | BSA 1.68 m 24 Hour Vital Min/Max: Systolic (24hrs), Av , Min:87 , Max:127 Diastolic (24hrs), Av, Min:51, Max:69 Pulse Min: 81 Max: 91 Temp Min: 36.2 C (97.2 F) Max: 37.3 C (99.1 F) Resp Min: 16 Max: 18 SpO2 Min: 91 % Max: 95 % Intake/Output Summary (Last 24 hours) at 05/12/2019 1938 Last data filed at 05/12/2019 1808 Gross per 24 hour Intake 4810 ml Output 3150 ml Net 1660 ml Physical Exam: General: This is a female in no acute distress sitting in the bed. Pleasant and cooperative. HEENT: PERRL. Sclerae anicteric. Mucosa pink and moist. No ulcers or exudates Skin: No diaphoresis, lesions noted. +Diffuse erythematous maculopapular rash to face/trun k and extremities-Improved Chest: Clear to auscultation bilaterally. CV: RRR, no murmurs. Abdomen: S/NT/ND with NABS. No guarding, rigidity or rebound tenderness. No HSM appreciat ed. Extremities: Pulses strong and equal bilaterally. No c/c/+trace bilateral lower extremity edema. Neuro: Alert and oriented x 3. Grossly nonfocal exam. CVC: Central Line, DL - no erythema, edema, tenderness or drainage. Dressing clean, dry an d intact. Laboratory Results: Recent Labs 05/10/19 0030 05/11/19 0103 05/12/19 0021 NA 138 137 137 K 4.4 3.7 3.1* CL 108 105 102 BICARB 23 25 28 BUN 15 15 13 CR 0.54* 0.62 0.67 GLU 117* 99 115* CA 8.4* 8.3* 8.0* AST 5 4 5 ALT 10 12 12 AP 92 93 87 TBILI 0.9 0.8 0.5 TP 5.8* 6.0* 6.1* ALB 2.6* 2.8* 2.8* Recent Labs 05/10/19 0030 05/11/19 0104 05/12/19 0021 WBC 0.61* 0.56* 0.60* RBC 3.08* 3.02* 3.03* HB 8.7* 8.2* 8.4* HCT 25.5* 24.8* 24.6* PLT 3* 4* 5* NEUTROPERC 57.4 58.9 55.6 LYMPHPERC 8.2* 8.9* 14.3* MONOPERC 26.2* 25.0* 24.6* BASOPERC 1.6 1.8 0.8 EOSPERC 3.3* 3.6* 2.4 Meds: Reviewed on rounds, see current MAR for medication list SUMMARY OF PATIENT'S HOSPITALIZATION History of Present Illness: (from H&P) Stephenie Camarillo is a 53 year old female with 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 Her hematogical history da jostin back to 2016 when she noted progressive fatigue. 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 She was working 6 days per week and thought she was working too hard. She left her job in August 2017 to give herself s ome time to feel better. She had been to various physicians in [place] for fatigue without answer s. In January 15, she developed fevers up to 104. She was tested for lyme disease, rheumatologi david conditions which were all negative. She began to notice that her counts were dropping. S he relocated to [facility] from [place] to live with her niece in 06/2018. She saw a local PA in [facility] 07/2018 Meredith Sanchez who did further testing. Labs on 10/07/18 showed normal chemistries, Bilirubin 1.4, hepatitis negative, ESR elevated at 174 with RA, RIOS C3/C4 nega tive. CBC showed WBC 2.4, Hb 10.8, Plt 166K, ANC 1529. She was referred to Dr. Sequeira ( medical oncology) on 10/29. Bone marrow biopsy was performed on 11/05 showing hypercellular mar row (70%) with 18% by morphology and 26% on flow. Mild erythroid hyperplasia and megakaryocy tic atypia. Blast immunophenotype was positive for CD33, CD45 dim, CD34, CD15, CD117, CD 11c , MPO. 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 Cytogenetics were normal. MDS and AML FISH panel was negative. NGS panel was negative for FLT3, NPM1, CEBPA, c-KIT, I DH1, IDH2, TP53. She started Vidaza locally on December 24 however developed a rash to the SQ injection and missed D3, dexamethasone was added for D4-D7. She lives in a travel trailer at her niece's house. Her niece has 5 dogs, 2 chicken, 3 cats and 1 ferret. She is applying fo r disability and not currently working. Her niece owns a PET SPA and she helps out as needed . She has no healthy siblings. One brother in [place] is an alcoholic. Older sister lives i n a mcfp due to vascular dementia and severe diabetes. Since my last visit with Mirian gilman, she was admitted to the hospital 01/14-01/26 [...] option and she consen martha to kyle "[id number]: A Multicenter, Randomized, Phase III Registration Trial of Tra nsplantation of NiCord, Ex Vivo Expanded, UCB-derived, Stem and Progenitor Cells, vs. Unma nipulated UCB for Patients With Hematological Malignancies". She was randomized to SOC arm. C3 aza started on 02/21-end 03/01. Tolerated well without complications. MDS (myelodysplastic syndrome) ([facility]) 11/30/2018 Initial Diagnosis MDS (myelodysplastic syndrome) ([facility]) 12/02/2018 - 12/29/2018 Chemotherapy azaCITIDine (VIDAZA) injection 125 mg, 75 mg/m2 = 125 mg, subcutaneous, ONCE, 1 of 6 cycles 04/15/2019 - Chemotherapy fludarabine (FLUDARA) 42.5 mg in NaCl 0.9 % (NS) IV, 25 mg/m2 = 42.5 mg, intravenous, EVERY 24 HOURS, 0 of 1 cycle cyclophosphamide (CYTOXAN) 60 mg/kg = 4,000 mg in NaCl 0.9 % (NS) IV, 60 mg/kg = 4,000 mg, intravenous, EVERY 24 HOURS, 0 of 1 cycle Hospitalization History: Hematology: #Hematologic Malignancy: MDS Conditioning [...] 10 6 per kg Stem Cell Day: +20 #Pancytopenia likely r/t chemotherapy: WBC/ANC rising c/w early neutrophil engraftment -Antimicrobials below -See supportive care #Supportive Care: Growth Factor: Daily filgrastrim started Day +1 and will continue until ANC > 1500 x 2 c onsecutive days. Labs: Continue to check CBC daily Transfusion parameters: -Transfuse PRBCs for HCT <21% if asymptomatic OR <24% if symptomatic -Transfuse PPH for platelet count <10,000 sooner for s/s bleeding GVHD: No acute s/s of aGvHD Prophylaxis/Treatment: Prophylaxis with tacrolimus and MMF per [facility] protocol - Tacrolimus started D-3 (goal 5-15) -Tacrolimus 0.5 mg PO qPM -Tacrolimus 1.0 mg PO qAM -MMF given at a dose of 15 mg/kg TID D-3 to D+60 #?Engraftment Syndrome: notable for weight gain, SOB requiring 1-2L NC, hyperbilirubinemia, and diffuse non-pruritic erythematous maculopapular rash to trunk/back and extremities ~48 hours prior to count appearance -Methylpred 0.5mg/kg/day (05/05-05/09) -Pred 0.25 mg/kg/d (05/10- ) Staging: Skin: stage 0 Gut: stage 0 Liver: stage 0 Overall Grade: 0 HEENT: #Nosebleeds: started 04/30 with intermittent bleeding, controlled -Afrin PRN Pulmonary: Pretransplant PFTs completed on 03/10/19 showed FEV1 of 76% predicted, FVC of 87% predicted and adjusted DLCO of 77% predicted. #Hypoxemia: first noted 04/30 with O2 sats ~88-89%. Improved with lasix. Resolved. As of , O2 sat >90% on RA. -Lasix 60 mg IV PRN, last given 05/08 Cardiovascular: Pretransplant TTE completed on 03/10/2019 showed a LVEF of 64%. #Hx/o PICC line associated DVT:Noted on US 01/17/19 involved both right and left UE.Sh e completed 3 months ofanticoagulationwith apixiban, end date 04/14/19. 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 -s/p Lisinopril 5 mg PO daily (05/07-05/08) -Dc'd lisinopril and restarted home triamterene/HCTZ on 05/09 -Hydralazine PRN #Re-evaluation of cardiac function: received cytoxan during conditioning. Increase oxygen r equirements as of 04/30. (05/02) Repeat ECHO LVEF 65-70%. GI: #Mucositis: Improved -Continue mouth rinses -Special mouthwash PRN -Oxycodone 5-15 q4hrs PRN #NIRAJ: worse again on 05/09, now controlled -Zofran ODT 8 mg q12 hours -Zyprexa 5 mg qHS, started 05/09 -Antiemetics PRN #Abdominal pain/cramping: -Simethicone 80 mg TID PRN #Hemorrhoidal pain: improving -Nifedipine 0.3%-Lidocaine 1.5% TID PRN -Proctozone 2.5% rectal cream TID PRN -Sitz baths after stooling and at least 2-3 times daily #Diarrhea: (04/25) Clostridium difficile negative. (04/25) GI path panel negative. Improvin g. -Imodium PRN #Hyperbilirubinemia: Trending down, Tbili 1.7 today -Monitor LFTs daily #Risk of gastritis: -Pepcid 20 mg BID #Risk for VOD: no e/o this currently -Ursodiol 500 mg PO BID /Renal: No acute issues Derm: #Rash: first noted 05/02, follicular rash localized to upper back with progression to diffu se, confluent maculopapular to trunk/back and all extremities with c/f hyperacute GvHD vs en graftment syndrome. Improving -(05/04) Derm consult: -Rec vaseline to be applied daily with daily dressing change at bx site. Suture to be raegan esvin on 05/18. -Biopsy performed: sparse vacuolar dermatitis with c/f subtle GVHD -Triamcinolone 0.1% oint BID to affected areas, started 05/04 -Methylpred 0.5mg/kg/day (05/05-05/09), then decreased to Pred 0.25 mg/kg/d (05/10- ) -Atarax 10 mg PO q6hrs PRN for itching, started 05/07 Psych: #Depression: Stable, continue home SSRI. - Lexapro 20 mg PO daily MSK: #Myaglia/Arthralgia: -Claritin 10 mg PO daily, started 05/05 #Bilat posterior leg pain: noted when standing. CK 29. Monitor Infectious Disease: #Herpes Zoster, recent history: Noted in December, now s/p treatment with IV acyclovirfrom approx 01/10 through 01/16 then transitioned to valacyclovir 1g TID to complete an additional 7dcourse (extended for new lesions).She will continue on valacyclovir(rather than acyc lovir)through day +365 post transplant. -Valacyclovir 500mg BID #Non-neutropenic fever:Noted on 04/17. She was started on cefepime, however blood cul tures with NGTD x 72h and fevers since defervesced.She wasde-escalatedto levaquin pr ophylaxis on 04/20 (although not neutropenic), no fevers since de-escalation. -s/pCefepime (04/17 - 04/20) #NTP fever: noted 04/28 with bld cx positive for strep bacteremia (see below), UA: negative , CXR: negative for infection, trace pleural effusions. Afebrile since 05/03 but with recurr ent fever on 05/11. CXR clear -F/u bld cxs 05/11 -Zosyn (05/07- ), changed from Cefe d/t rash #Strep bacteremia: (04/28) NTP fever with bld cx +strep bacteremia. Repeat bld cx as of : negative. -(05/02) Per ID, broad spectrum abx to be continued x 7d (~05/09) or until no longer neutr openic (whichever is last) #Prophylaxis: Bacterial: see above Fungal: Posaconazole, level adequate at 0.7 on 04/28 Viral: Valacyclovir CMV: Letermovir PCP: Pentamidine prior to discharge, scheduled on 05/13 Toxo: Pt is toxo negative, no further testing required. #Routine infectious disease testing -CMV by PCR weekly, starting after day 0. Lab Results Component Value Date CMVQUANTPCR Undetected 05/07/2019 CMVQUANTPCR Undetected 04/30/2019 CMVQUANTPCR Undetected 04/22/2019 CMVQUANTPCR Undetected 04/16/2019 -Asp. Galactomannan weekly, starting after day 0. Lab Results Component Value Date GALACTO Negative 05/09/2019 Fluid/Nutrition/Lytes: #Nutrition: Low bacterial diet #Fluid: Assess daily in recent setting of FVO #Lytes: Continue to check chemistries daily. Replace per supportive care protocol. Disposition: Pending further count recovery, resolution of fevers and improvement in PO in take. ELIECER Yoo [facility] [id number] Mailcode: [id number] [place] [id number] Associated attestation - Sejal De La Torre DO - 05/13/2019 8:24 AM PSTHematologic Malign ancies/Bone Marrow Transplant Inpatient Attending Progress Note: 05/12/2019 I rounded today in conjunction with the Advanced Practice Provider. I saw the patient, reviewed the history and relevant studies, and developed an assessment a nd plan. 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 Subjective: Feeling better today. No new issues. Low energy however. Appetite somewhat impr shante. Objective: BP 132/57 (BP Location: Left lower arm, Patient Position: Lying on back) | Puls e 82 | Temp 37.4 C (99.3 F) (Axillary) | Resp 18 | Ht 1.591 m (5' 2.64") | Wt 64 kg (141 lb 1.5 oz) | SpO2 94% Comment: moved O2 site | BMI 25.28 kg/m | BSA 1.68 m General: This is a female in no acute distress sitting in the bed. Pleasant and cooperative. HEENT: Erythema noted on buccal mucosa Skin: No diaphoresis, lesions noted. +faded diffuse erythematous maculopapular rash to fac e/trunk/back and extremities 50% BSA (improving) Chest: CTA BL No wheezing bilaterally. CV: RRR, no murmurs. Abdomen: S/NT/ND with NABS. No guarding, rigidity or rebound tenderness. No HSM appreciat ed. Extremities: Pulses strong and equal bilaterally. No c/c/+no edema Neuro: Alert and oriented x 3. Grossly nonfocal exam. CVC: Central Line, DL - no erythema, edema, tenderness or drainage. Dressing clean, dry an d intact. Please see the Advanced Practice Provider documentation from today for the details regardin g assessment and plan. Stephenie Camarillo is a 53 y.o. female with the following hospitalization problem list: Patients Hospital Problem List: Active Hospital Problems 1) *MDS (myelodysplastic syndrome) (HCC) 2) Acute deep vein thrombosis (DVT) of both upper extremities (HCC) Developed while hospitalized for shingles and had PICC in 3) Immunocompromised state due to drug therapy 4) Pancytopenia (HCC) Plans today include: -D20 FluCyTBI UCB (double SOC) on [facility], early engraftment noted -GVHD ppx-MMF until D+60 and tacrolimus goal 5-15. Level 4 on 05/11/19. Increased to goal -ANC stable. Continue G-CSF -Strep bacteremia- Noted on 04/28. Clear on 04/29/19. Switched cefepime to zosyn 05/07/19 due to worsening rash. -Possible engraftment syndrome-Derm bx consistent with possible engraftment vs GVHD vs drug rash. Improved after stopping cefepime. On 0.5 mg/kg/d prednisone since 05/05. Plan to taper as tolerated, on prednisone 0.25 mg/kg/d 05/10/19, plan to taper every 5 days to off. Next taper 05/15/19. -Diarrhea-C Diff and pathogen panel negative. Imodium. Improved. -Continue supportive care Sejal De La Torre DO Assistant Sales Center Manager Apple Bergeron PA - 05/11/2019 2:56 PM PSTFormatting of this note might be different f rom the original. Daily GISSEL Note - Transplant Admit [facility] Attending: Sejal De La Torre DO [facility] Physician: Sejal De La Torre DO PCP: LACY Perez Date of Admission: 04/15/2019 Hematologic Malignancy: MDS Conditioning regimen: FluCyTBI Date of transplant: 04/22/2019 Donor: CBU 1: [id number] match, CBU 2: [id number]/02 match Reason for admission: Scheduled admission for myeloablative chemotherapy with subsequent st em cell infusion. ID: 53 yo with MDS admitted for FluCyTBI UCB on [facility]. Hx/o HTN and PICC associated thromb osis 24 hour events/plans: -MDS: admitted for FluCyTBI (on [facility] Trial), currently day +19 -IST: tacrolimus (goal 5-15) with MMF -Pancytopenia: standard transfusion parameters. WBC/ANC slowly rising c/w early neutrophil engraftment. 1U PPH today. -Platelet alloimmunization: 05/03 Platelet refractory w/u positive - requires HLA matched pl atelets. -NTP fever: first noted 04/28, afebrile since 05/04 but with recurrent fever on 05/11. Cont inue zosyn. Repeat bld cxs PENDING, CXR 05/11 clear. -Strep bacteremia: (04/28) NTP fever with bld cx +strep bacteremia. Repeat bld cx as of : negative. Continue zosyn until no longer neutropenic and then dc. -HTN: restarted triam/HCTZ on 05/09 (home regimen). Hydralazine PRN -NIRAJ: recurrent on 05/09, restarted zofran BID and added zyprexa 5 mg qHS with improvement. -Diarrhea: (04/25) Clostridium difficile negative. (04/25) GI path panel negative. Diarrh ea and hemorrhoid improving. -Imodium PRN -Nifedipine 0.3%-Lidocaine 1.5% TID PRN - pt prefers this medication vs. Proctozone -Rash: first noted 05/02, follicular rash localized to upper back with progression to diffu se, confluent pruritic maculopapular with c/f hyperacute GvHD vs engraftment syndrome vs guido g rxn from cefepime. Improving s/p stopping cefepime. Derm consulted and biopsy shows sparse vacuolar dermatitis. -Suture to be removed on 05/18. -Triamcinolone 0.1% oint BID to affected areas, started 05/04 -?Engraftment Syndrome: notable for weight gain, SOB requiring 1-2L NC, hyperbilirubinemia, and diffuse non-pruritic erythematous maculopapular rash to trunk/back and extremities ~48 hours prior to count appearance -Methylpred 0.5mg/kg/day (05/05-05/09) -Pred 0.25 mg/kg/d (25 mg), starting 05/10 -Lytes: standard electrolyte replacement. None needed today. Subjective: Nausea controlled. Diarrhea and rash improving but still feeling very fatigue d with no appetite. C/o bilateral posterior leg pain. Objective: Last Vitals: BP 123/59 (BP Location: Right lower arm, Patient Position: Lying on back) | P ulse 94 | Temp 37.4 C (99.3 F) (Oral) | Resp 21 | Ht 1.591 m (5' 2.64") | Wt 63.8 kg (140 lb 10.5 oz) | SpO2 97% | BMI 25.20 kg/m | BSA 1.68 m 24 Hour Vital Min/Max: Systolic (24hrs), Av , Min:123 , Max:150 Diastolic (24hrs), Av, Min:53, Max:76 Pulse Min: 75 Max: 94 Temp Min: 36.7 C (98.1 F) Max: 38.2 C (100.8 F) Resp Min: 16 Max: 22 SpO2 Min: 92 % Max: 98 % Intake/Output Summary (Last 24 hours) at 05/11/2019 1456 Last data filed at 05/11/2019 1403 Gross per 24 hour Intake 2685 ml Output 4875 ml Net -2190 ml Physical Exam: General: This is a female in no acute distress sitting in the bed. Pleasant and cooperative. HEENT: PERRL. Sclerae anicteric. Mucosa pink and moist. No ulcers or exudates. +Small he matoma to forehead Skin: No diaphoresis, lesions noted. +Diffuse erythematous maculopapular rash to face/trun k and extremities-improving Chest: Clear to auscultation bilaterally. CV: RRR, no murmurs. Abdomen: S/NT/ND with NABS. No guarding, rigidity or rebound tenderness. No HSM appreciat ed. Extremities: Pulses strong and equal bilaterally. No c/c/+trace bilateral lower extremity edema. Neuro: Alert and oriented x 3. Grossly nonfocal exam. CVC: Central Line, DL - no erythema, edema, tenderness or drainage. Dressing clean, dry an d intact. Laboratory Results: Recent Labs 05/09/19 0047 05/10/19 0030 05/11/19 0103 NA 139 138 137 K 3.9 4.4 3.7 CL 105 108 105 BICARB 25 23 25 BUN 18 15 15 CR 0.63 0.54* 0.62 GLU 132* 117* 99 CA 7.7* 8.4* 8.3* AST 7 5 4 ALT 12 10 12 AP 89 92 93 TBILI 0.6 0.9 0.8 TP 5.9* 5.8* 6.0* ALB 2.7* 2.6* 2.8* Recent Labs 05/09/19 0047 05/10/19 0030 05/11/19 0104 WBC 0.50* 0.61* 0.56* RBC 3.07* 3.08* 3.02* HB 8.6* 8.7* 8.2* HCT 25.2* 25.5* 24.8* PLT 6* 3* 4* NEUTROPERC 62.1 57.4 58.9 LYMPHPERC 7.6* 8.2* 8.9* MONOPERC 15.2* 26.2* 25.0* BASOPERC 0.0 1.6 1.8 EOSPERC 1.5 3.3* 3.6* Meds: Reviewed on rounds, see current MAR for medication list SUMMARY OF PATIENT'S HOSPITALIZATION History of Present Illness: (from H&P) Stephenie Camarillo is a 53 year old female with 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 Her hematogical history da jostin back to 2015 when she noted progressive fatigue. 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 She was working 6 days per week and thought she was working too hard. She left her job in August 2017 to give herself s ome time to feel better. She had been to various physicians in [place] for fatigue without answer s. In January 15, she developed fevers up to 104. She was tested for lyme disease, rheumatologi david conditions which were all negative. She began to notice that her counts were dropping. S he relocated to [facility] from [place] to live with her niece in 06/2018. She saw a local PA in [facility] 07/2018 Meredith Sanchez who did further testing. Labs on 10/07/18 showed normal chemistries, Bilirubin 1.4, hepatitis negative, ESR elevated at 174 with RA, RIOS C3/C4 nega tive. CBC showed WBC 2.4, Hb 10.8, Plt 166K, ANC 1529. She was referred to Dr. Sequeira ( medical oncology) on 10/29. Bone marrow biopsy was performed on 11/05 showing hypercellular mar row (70%) with 18% by morphology and 26% on flow. Mild erythroid hyperplasia and megakaryocy tic atypia. Blast immunophenotype was positive for CD33, CD45 dim, CD34, CD15, CD117, CD 11c , MPO. 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 Cytogenetics were normal. MDS and AML FISH panel was negative. NGS panel was negative for FLT3, NPM1, CEBPA, c-KIT, I DH1, IDH2, TP53. She started Vidaza locally on December 24 however developed a rash to the SQ injection and missed D3, dexamethasone was added for D4-D7. She lives in a travel trailer at her niece's house. Her niece has 5 dogs, 2 chicken, 3 cats and 1 ferret. She is applying fo r disability and not currently working. Her niece owns a PET SPA and she helps out as needed . She has no healthy siblings. One brother in [place] is an alcoholic. Older sister lives i n a mcfp due to vascular dementia and severe diabetes. Since my last visit with Mirian gilman, she was admitted to the hospital 01/14-01/26 [...] only option and she consen martha to [facility] "[id number]: A Multicenter, Randomized, Phase III Registration Trial of Tra nsplantation of NiCord, Ex Vivo Expanded, UCB-derived, Stem and Progenitor Cells, vs. Unma nipulated UCB for Patients With Hematological Malignancies". She was randomized to SOC arm. C3 aza started on 02/21-end 03/01. Tolerated well without complications. MDS (myelodysplastic syndrome) ([facility]) 11/30/2018 Initial Diagnosis MDS (myelodysplastic syndrome) ([facility]) 12/02/2018 - 12/29/2018 Chemotherapy azaCITIDine (VIDAZA) injection 125 mg, 75 mg/m2 = 125 mg, subcutaneous, ONCE, 1 of 6 cycles 04/15/2019 - Chemotherapy fludarabine (FLUDARA) 42.5 mg in NaCl 0.9 % (NS) IV, 25 mg/m2 = 42.5 mg, intravenous, EVERY 24 HOURS, 0 of 1 cycle cyclophosphamide (CYTOXAN) 60 mg/kg = 4,000 mg in NaCl 0.9 % (NS) IV, 60 mg/kg = 4,000 mg, intravenous, EVERY 24 HOURS, 0 of 1 cycle Hospitalization History: Hematology: #Hematologic Malignancy: MDS Conditioning [...] 10 6 per kg Stem Cell Day: +18 #Pancytopenia likely r/t chemotherapy: WBC/ANC rising c/w early neutrophil engraftment -Antimicrobials below -See supportive care #Supportive Care: Growth Factor: Daily filgrastrim started Day +1 and will continue until ANC > 1500 x 2 c onsecutive days. Labs: Continue to check CBC daily Transfusion parameters: -Transfuse PRBCs for HCT <21% if asymptomatic OR <24% if symptomatic -Transfuse PPH for platelet count <10,000 sooner for s/s bleeding GVHD: No acute s/s of aGvHD Prophylaxis/Treatment: [facility] - Tacrolimus started D-3 (goal 5-15) -Tacrolimus 0.5 mg PO qPM -Tacrolimus 1.0 mg PO qAM -MMF given at a dose of 15 mg/kg TID D-3 to D+60 #?Engraftment Syndrome: notable for weight gain, SOB requiring 1-2L NC, hyperbilirubinemia, and diffuse non-pruritic erythematous maculopapular rash to trunk/back and extremities ~48 hours prior to count appearance -Methylpred 0.5mg/kg/day (05/05-05/09) -Pred 0.25 mg/kg/d (05/10- ) Staging: Skin: stage 0 Gut: stage 0 Liver: stage 0 Overall Grade: 0 HEENT: #Nosebleeds: started 04/30 with intermittent bleeding, controlled -Afrin PRN Pulmonary: Pretransplant PFTs completed on 03/10/19 showed FEV1 of 76% predicted, FVC of 87% predicted and adjusted DLCO of 77% predicted. #Hypoxemia: first noted 04/30 with O2 sats ~88-89%. Improved with lasix. Resolved. As of , pt saturations >90% on RA. -Lasix 60 mg IV PRN, last given 05/08 Cardiovascular: Pretransplant TTE completed on 03/10/2019 showed a LVEF of 64%. #Hx/o PICC line associated DVT:Noted on US 01/17/19 involved both right and left UE.Sh e completed 3 months ofanticoagulationwith apixiban, end date 04/14/19. 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 -s/p Lisinopril 5 mg PO daily (05/07-05/08) -Dc'd lisinopril and restarted home triamterene/HCTZ on 05/09 -Hydralazine PRN #Re-evaluation of cardiac function: received cytoxan during conditioning. Increase oxygen r equirements as of 04/30. (05/02) Repeat ECHO LVEF 65-70%. GI: #Mucositis: Improved -Continue mouth rinses -Special mouthwash PRN -Oxycodone 5-15 q4hrs PRN #NIRAJ: worse again on 05/09, now controlled -Zofran ODT 8 mg q12 hours -Zyprexa 5 mg qHS, started 05/09 -Antiemetics PRN #Abdominal pain/cramping: -Simethicone 80 mg TID PRN #Hemorrhoidal pain: improving -Nifedipine 0.3%-Lidocaine 1.5% TID PRN -Proctozone 2.5% rectal cream TID PRN -Sitz baths after stooling and at least 2-3 times daily #Diarrhea: (04/25) Clostridium difficile negative. (04/25) GI path panel negative. Improvin g. -Imodium PRN #Hyperbilirubinemia: total bili 1.4 on 05/05 with stable LFTs. No RUQ pain or tenderness to palpation. Resolved #Risk of gastritis: -Pepcid 20 mg BID #Risk for VOD: no e/o this currently -Ursodiol 500 mg PO BID /Renal: No acute issues Derm: #Rash: first noted 05/02, follicular rash localized to upper back with progression to diffu se, confluent maculopapular to trunk/back and all extremities with c/f hyperacute GvHD vs en graftment syndrome. Improving -(05/04) Derm consult: -Rec vaseline to be applied daily with daily dressing change at bx site. Suture to be raegan esvin on 05/18. 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 - Lexapro 20 mg PO daily MSK: #Myaglia/Arthralgia: -Claritin 10 mg PO daily, started 05/05 Infectious Disease: #Herpes Zoster, recent history: Noted in December, now s/p treatment with IV acyclovirfrom approx 01/10 through 01/16 then transitioned to valacyclovir 1g TID to complete an additional 7dcourse (extended for new lesions).She will continue on valacyclovir(rather than acyc lovir)through day +365 post transplant. -Valacyclovir 500mg BID #Non-neutropenic fever:Noted on 04/17. She was started on cefepime, however blood cul tures with NGTD x 72h and fevers since defervesced.She wasde-escalatedto levaquin pr ophylaxis on 04/20 (although not neutropenic), no fevers since de-escalation. -s/pCefepime (04/17 - 04/20) #NTP fever: noted 04/28 with bld cx positive for strep bacteremia (see below), UA: negative , CXR: negative for infection, trace pleural effusions. Afebrile since 05/03 but with recurr ent fever on 05/11. CXR clear -F/u bld cxs 05/11 -Zosyn (05/07- ), changed from zosyn d/t rash #Strep bacteremia: (04/28) NTP fever with bld cx +strep bacteremia. Repeat bld cx as of : negative. -(05/02) Per ID, broad spectrum abx to be continued x 7d (~05/09) or until no longer neutr openic (whichever is last) #Prophylaxis: Bacterial: see above Fungal: Posaconazole, level adequate at 0.7 on 04/28 Viral: Valacyclovir CMV: Letermovir PCP: Pentamidine prior to discharge, scheduled on 05/13 Toxo: Pt is toxo negative, no further testing required. #Routine infectious disease testing -CMV by PCR weekly, starting after day 0. Lab Results Component Value Date CMVQUANTPCR Undetected 05/07/2019 CMVQUANTPCR Undetected 04/30/2019 CMVQUANTPCR Undetected 04/22/2019 CMVQUANTPCR Undetected 04/16/2019 -Asp. Galactomannan weekly, starting after day 0. Lab Results Component Value Date GALACTO Negative 05/09/2019 Fluid/Nutrition/Lytes: #Nutrition: Low bacterial diet #Fluid: Assess daily in recent setting of FVO #Lytes: Continue to check chemistries daily. Replace per supportive care protocol. Disposition: Pending further count recovery, resolution of fevers and improvement in PO in take. LACY Rutledge [facility] [id number] Mailcode: [id number] [place] [phone] Associated attestation - Sejal De La Torre DO - 05/13/2019 8:22 AM PSTHematologic Malign ancies/Bone Marrow Transplant Inpatient Attending Progress Note: 05/11/2019 I rounded today in conjunction with the Advanced Practice Provider. I saw the patient, reviewed the history and relevant studies, and developed an assessment a nd plan. 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 Subjective: Diarrhea continues to improve. Rash is also significantly improved. Objective: BP 132/57 (BP Location: Left lower arm, Patient Position: Lying on back) | Puls e 82 | Temp 37.4 C (99.3 F) (Axillary) | Resp 18 | Ht 1.591 m (5' 2.64") | Wt 64 kg (141 lb 1.5 oz) | SpO2 94% Comment: moved O2 site | BMI 25.28 kg/m | BSA 1.68 m General: This is a female in no acute distress sitting in the bed. Pleasant and cooperative. HEENT: Erythema noted on buccal mucosa Skin: No diaphoresis, lesions noted. +Diffuse erythematous maculopapular rash to face/trun k/back and extremities 50% BSA (improving) Chest: CTA BL No wheezing bilaterally. CV: RRR, no murmurs. Abdomen: S/NT/ND with NABS. No guarding, rigidity or rebound tenderness. No HSM appreciat ed. Extremities: Pulses strong and equal bilaterally. No c/c/+no edema Neuro: Alert and oriented x 3. Grossly nonfocal exam. CVC: Central Line, DL - no erythema, edema, tenderness or drainage. Dressing clean, dry an d intact. Please see the Advanced Practice Provider documentation from today for the details regardin g assessment and plan. Stephenie Camarillo is a 53 y.o. female with the following hospitalization problem list: Patients Hospital Problem List: Active Hospital Problems 1) *MDS (myelodysplastic syndrome) (HCC) 2) Acute deep vein thrombosis (DVT) of both upper extremities (HCC) Developed while hospitalized for shingles and had PICC in 3) Immunocompromised state due to drug therapy 4) Pancytopenia (HCC) Plans today include: -D19 of FluCyTBI UCB (double SOC) on [place], early engraftment noted -GVHD ppx-MMF until D+60 and tacrolimus goal 5-15. Level 4 on 05/11/19. Increased to goal -Strep bacteremia- Noted on 04/28. Clear on 04/29/19. Switched cefepime to zosyn 05/07/19 due to worsening rash. -Possible engraftment syndrome-Derm bx consistent with possible engraftment vs GVHD vs drug rash. Improved after stopping cefepime. On 0.5 mg/kg/d prednisone since 05/05. Plan to taper as tolerated, on prednisone 0.25 mg/kg/d 05/10/19, plan to taper every 5 days to off. Next taper 05/15/19. -Diarrhea-C Diff and pathogen panel negative. Imodium. Improved. -Continue supportive care Sejal De La Torre DO Assistant Sales Center Manager Apple Bergeron PA - 05/10/2019 1:21 PM PSTFormatting of this note might be different f rom the original. Daily GISSEL Note - Transplant [facility] Attending: Sejal De La Torre DO [facility] Physician: Sejal De La Torre DO PCP: LACY Perez Date of Admission: 04/15/2019 Hematologic Malignancy: MDS Conditioning regimen: FluCyTBI Date of transplant: 04/22/2019 Donor: CBU 1: [id number]/02 match, CBU 2: [id number]/02 match Reason for admission: Scheduled admission for myeloablative chemotherapy with subsequent st em cell infusion. ID: 53 yo with MDS admitted for FluCyTBI UCB on [place]. Hx/o HTN and PICC associated thromb osis 24 hour events/plans: -MDS: admitted for FluCyTBI (on [facility] Trial), currently day +18 -IST: tacrolimus (goal 5-15) with MMF -Pancytopenia: standard transfusion parameters. (05/03) Platelet refractory w/u positive - requires HLA matched platelets. 1U PPH today. -NTP fever: first noted 04/28 with intermittent fevers since. (05/03) Last fever 38.1. () Bld cx: +Strep bacteremia (see below). -Strep bacteremia: (04/28) NTP fever with bld cx +strep bacteremia. Repeat bld cx as of : negative. -(05/02) Per ID, cefepime to be continued until no longer neutropenic -(05/07) D/c'ed Cefepime and switched to Zosyn for possible drug rash vs. ES HTN: restarted triam/HCTZ on 05/09 (home regimen). Hydralazine PRN -FVO: Lasix 60 mg IV, last given on 05/08 -NIRAJ: recurrent on 05/09, restart zofran BID and add zyprexa 5 mg qHS -Diarrhea: (04/25) Clostridium difficile negative. (04/25) GI path panel negative. -Imodium PRN -Consider repeat c diff/GI panel if diarrhea continues to worsen -Hemorrhoidal pain: -Nifedipine 0.3%-Lidocaine 1.5% TID PRN - pt prefers this medication vs. Proctozone -Proctozone 2.5% rectal cream TID PRN -Sitz baths after stooling and at least 2-3 times daily -Rash: first noted 05/02, follicular rash localized to upper back with progression to diffu se, confluent pruritic maculopapular with c/f hyperacute GvHD vs engraftment syndrome vs guido g rxn from cefepime. Improving s/p stopping cefepime. -(05/04) Derm consult: -Rec vaseline to be applied daily with daily dressing change at bx site. Suture to be raegan esvin on 05/18. 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 Required magnesium replacement today. Subjective: Nausea a little better today. Still with very little appetite and very fatigu ed. Objective: Last Vitals: BP 121/65 (BP Location: Left lower arm, Patient Position: Sitting) | Pulse 92 | Temp 36.7 C (98.1 F) (Oral) | Resp 16 | Ht 1.591 m (5' 2.64") | Wt 65 kg (143 lb 4.8 oz) | SpO2 94% | BMI 25.68 kg/m | BSA 1.69 m 24 Hour Vital Min/Max: Systolic (24hrs), Av , Min:121 , Max:166 Diastolic (24hrs), Av, Min:65, Max:79 Pulse Min: 72 Max: 92 Temp Min: 36.3 C (97.3 F) Max: 37.3 C (99.1 F) Resp Min: 16 Max: 18 SpO2 Min: 94 % Max: 95 % Intake/Output Summary (Last 24 hours) at 05/10/2019 1321 Last data filed at 05/10/2019 1149 Gross per 24 hour Intake 3607 ml Output 2530 ml Net 1077 ml Physical Exam: General: This is a female in no acute distress sitting in the bed. Pleasant and cooperative. HEENT: PERRL. Sclerae anicteric. Mucosa pink and moist. No ulcers or exudates. +Small he matoma to forehead Skin: No diaphoresis, lesions noted. +Diffuse erythematous maculopapular rash to face/trun k and extremities-improving Chest: +Few crackles to bilateral bases. No wheezing bilaterally. CV: RRR, no murmurs. Abdomen: S/NT/ND with NABS. No guarding, rigidity or rebound tenderness. No HSM appreciat ed. Extremities: Pulses strong and equal bilaterally. No c/c/+trace bilateral lower extremity edema. Neuro: Alert and oriented x 3. Grossly nonfocal exam. CVC: Central Line, DL - no erythema, edema, tenderness or drainage. Dressing clean, dry an d intact. Laboratory Results: Recent Labs 05/08/19 1459 05/09/19 0047 05/10/19 0030 NA 139 139 138 K 3.5 3.9 4.4 CL 103 105 108 BICARB 28 25 23 BUN 20 18 15 CR 0.74 0.63 0.54* GLU 106* 132* 117* CA 7.8* 7.7* 8.4* AST 10 7 5 ALT 13 12 10 AP 104* 89 92 TBILI 1.0 0.6 0.9 TP 6.8 5.9* 5.8* ALB 3.0* 2.7* 2.6* Recent Labs 04/22/19 0011 05/07/19 2334 05/09/19 0047 05/10/19 0030 WBC 0.91* < > 0.29* 0.50* 0.61* RBC 3.92* < > 3.03* 3.07* 3.08* HB 10.9* < > 8.5* 8.6* 8.7* HCT 34.5* < > 25.1* 25.2* 25.5* PLT 161 < > 13* 6* 3* NEUTROPERC 96.5* -- -- 62.1 57.4 LYMPHPERC 1.8* -- -- 7.6* 8.2* MONOPERC 0.0* -- -- 15.2* 26.2* BASOPERC 0.0 -- -- 0.0 1.6 EOSPERC 1.7 -- -- 1.5 3.3* < > = values in this interval not displayed. 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 Her hematogical history da jostin back to 2015 when she noted progressive fatigue. 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 She was working 6 days per week and thought she was working too hard. She left her job in August 2017 to give herself s ome time to feel better. She had been to various physicians in [place] for fatigue without answer s. In January 15, she developed fevers up to 104. She was tested for lyme disease, rheumatologi david conditions which were all negative. She began to notice that her counts were dropping. S he relocated to [facility] from [place] to live with her niece in 06/2018. She saw a local PA in [facility] 07/2018 Meredith Sanchez who did further testing. Labs on 10/07/18 showed normal chemistries, Bilirubin 1.4, hepatitis negative, ESR elevated at 174 with RA, RIOS C3/C4 nega tive. CBC showed WBC 2.4, Hb 10.8, Plt 166K, ANC 1529. She was referred to Dr. Sequeira ( medical oncology) on 10/29. Bone marrow biopsy was performed on 11/05 showing hypercellular mar row (70%) with 18% by morphology and 26% on flow. Mild erythroid hyperplasia and megakaryocy tic atypia. Blast immunophenotype was positive for CD33, CD45 dim, CD34, CD15, CD117, CD 11c , MPO. 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 Cytogenetics were normal. MDS and AML FISH panel was negative. NGS panel was negative for FLT3, NPM1, CEBPA, c-KIT, I DH1, IDH2, TP53. She started Vidaza locally on December 24 however developed a rash to the SQ injection and missed D3, dexamethasone was added for D4-D7. She lives in a travel trailer at her niece's house. Her niece has 5 dogs, 2 chicken, 3 cats and 1 ferret. She is applying fo r disability and not currently working. Her niece owns a [employer] and she helps out as needed . She has no healthy siblings. One brother in [place] is an alcoholic. Older sister lives i n a mcfp due to vascular dementia and severe diabetes. Since my last visit with Mirian gilman, she was admitted to the hospital 01/14-01/26 [...] option and she consen martha to kyle "[id number]: A Multicenter, Randomized, Phase III Registration Trial of Tra nsplantation of NiCord, Ex Vivo Expanded, UCB-derived, Stem and Progenitor Cells, vs. Unma nipulated UCB for Patients With Hematological Malignancies". She was randomized to SOC arm. C3 aza started on 02/21-end 03/01. Tolerated well without complications. MDS (myelodysplastic syndrome) ([facility]) 11/30/2018 Initial Diagnosis MDS (myelodysplastic syndrome) ([facility]) 12/02/2018 - 12/29/2018 Chemotherapy azaCITIDine (VIDAZA) injection 125 mg, 75 mg/m2 = 125 mg, subcutaneous, ONCE, 1 of 6 cycles 04/15/2019 - Chemotherapy fludarabine (FLUDARA) 42.5 mg in NaCl 0.9 % (NS) IV, 25 mg/m2 = 42.5 mg, intravenous, EVERY 24 HOURS, 0 of 1 cycle cyclophosphamide (CYTOXAN) 60 mg/kg = 4,000 mg in NaCl 0.9 % (NS) IV, 60 mg/kg = 4,000 mg, intravenous, EVERY 24 HOURS, 0 of 1 cycle Hospitalization History: Hematology: #Hematologic Malignancy: MDS Conditioning [...] 10 6 per kg Stem Cell Day: +18 #Pancytopenia likely r/t chemotherapy: WBC/ANC rising c/w early neutrophil engraftment -Antimicrobials below -See supportive care #Supportive Care: Growth Factor: Daily filgrastrim started Day +1 and will continue until ANC > 1500 x 2 c onsecutive days. Labs: Continue to check CBC daily Transfusion parameters: -Transfuse PRBCs for HCT <21% if asymptomatic OR <24% if symptomatic -Transfuse PPH for platelet count <10,000 sooner for s/s bleeding GVHD: No acute s/s of aGvHD Prophylaxis/Treatment: [facility] - Tacrolimus started D-3 (goal 5-15) -Tacrolimus 0.5 mg PO qPM -Tacrolimus 1.0 mg PO qAM -MMF given at a dose of 15 mg/kg TID D-3 to D+60 #?Engraftment Syndrome: notable for weight gain, SOB requiring 1-2L NC, hyperbilirubinemia, and diffuse non-pruritic erythematous maculopapular rash to trunk/back and extremities ~48 hours prior to count appearance -Methylpred 0.5mg/kg/day (05/05-05/09) -Pred 0.25 mg/kg/d (05/10- ) Staging: Skin: stage 0 Gut: stage 0 Liver: stage 0 Overall Grade: 0 HEENT: #Nosebleeds: started 04/30 with intermittent bleeding, controlled -Afrin PRN Pulmonary: Pretransplant PFTs completed on 03/10/19 showed FEV1 of 76% predicted, FVC of 87% predicted and adjusted DLCO of 77% predicted. #Hypoxemia: first noted 04/30 with O2 sats ~88-89%. Improved with lasix. Resolved. As of , pt saturations >90% on RA. -Lasix 60 mg IV PRN Cardiovascular: Pretransplant TTE completed on 03/10/2019 showed a LVEF of 64%. #Hx/o PICC line associated DVT:Noted on US 01/17/19 involved both right and left UE.Sh e completed 3 months ofanticoagulationwith apixiban, end date 04/14/19. 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 -s/p Lisinopril 5 mg PO daily (05/07-05/08) -Dc'd lisinopril and restarted home triamterene/HCTZ on 05/09 -Hydralazine PRN #Re-evaluation of cardiac function: received cytoxan during conditioning. Increase oxygen r equirements as of 04/30. (05/02) Repeat ECHO LVEF 65-70%. GI: #Mucositis: Improved -Continue mouth rinses -Special mouthwash PRN -Oxycodone 5-15 q4hrs PRN #NIRAJ: worse again on 05/09 -Zofran ODT 8 mg q12 hours -Zyprexa 5 mg qHS, started 05/09 -Antiemetics PRN #Abdominal pain/cramping: -Simethicone 80 mg TID PRN #Hemorrhoidal pain: -Nifedipine 0.3%-Lidocaine 1.5% TID PRN -Proctozone 2.5% rectal cream TID PRN -Sitz baths after stooling and at least 2-3 times daily #Diarrhea: (04/25) Clostridium difficile negative. (04/25) GI path panel negative. -Imodium PRN -Consider repeat c diff/GI panel if diarrhea continues to worsen #Hyperbilirubinemia: total bili 1.4 on 05/05 with stable LFTs. No RUQ pain or tenderness to palpation. Resolved #Risk of gastritis: -Pepcid 20 mg BID #Risk for VOD: no e/o this currently -Ursodiol 500 mg PO BID /Renal: No acute issues Derm: #Rash: first noted 05/02, follicular rash localized to upper back with progression to diffu se, confluent maculopapular to trunk/back and all extremities with c/f hyperacute GvHD vs en graftment syndrome. Impvoring -(05/04) Derm consult: -Rec vaseline to be applied daily with daily dressing change at bx site. Suture to be raegan esvin on 05/18. 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 - Lexapro 20 mg PO daily MSK: #Myaglia/Arthralgia: -Claritin 10 mg PO daily, started 05/05 Infectious Disease: #Herpes Zoster, recent history: Noted in December, now s/p treatment with IV acyclovirfrom approx 01/10 through 01/16 then transitioned to valacyclovir 1g TID to complete an additional 7dcourse (extended for new lesions).She will continue on valacyclovir(rather than acyc lovir)through day +365 post transplant. -Valacyclovir 500mg BID #Non-neutropenic fever:Noted on 04/17. She was started on cefepime, however blood cul tures with NGTD x 72h and fevers since defervesced.She wasde-escalatedto levaquin pr ophylaxis on 04/20 (although not neutropenic), no fevers since de-escalation. -s/pCefepime (04/17 - 04/20) #NTP fever: noted 04/28 with bld cx positive for strep bacteremia (see below), UA: negative , CXR: negative for infection, trace pleural effusions. Still with intermittent fevering, c ultures being resent every 24 or greater with fevers. #Strep bacteremia: (04/28) NTP fever with bld cx +strep bacteremia. Repeat bld cx as of : negative. -(05/02) Per ID, cefepime to be continued x 7d (~05/09) or until no longer neutropenic (wh ichever is last) -(05/07) D/c'ed Cefepime and switched to Zosyn for possible drug rash vs. ES #Prophylaxis: Bacterial: see above Fungal: Posaconazole, level adequate at 0.7 on 04/28 Viral: Valacyclovir CMV: Letermovir PCP: Pentamidine prior to discharge Toxo: Pt is toxo negative, no further testing required. #Routine infectious disease testing -CMV by PCR weekly, starting after day 0. Lab Results Component Value Date CMVQUANTPCR Undetected 05/07/2019 CMVQUANTPCR Undetected 04/30/2019 CMVQUANTPCR Undetected 04/22/2019 CMVQUANTPCR Undetected 04/16/2019 -Asp. Galactomannan weekly, starting after day 0. Lab Results Component Value Date GALACTO Negative 05/09/2019 Fluid/Nutrition/Lytes: #Nutrition: Low bacterial diet #Fluid: Assess daily in recent setting of FVO #Lytes: Continue to check chemistries daily. Replace per supportive care protocol. Disposition: Pending count recovery LACY Rutledge [facility] [address] Mailcode: [id number] [place] [phone] Associated attestation - Seajl De La Torre DO - 05/13/2019 8:20 AM PSTHematologic Malign ancies/Bone Marrow Transplant Inpatient Attending Progress Note: 05/10/2019 I rounded today in conjunction with the Advanced Practice Provider. I saw the patient, reviewed the history and relevant studies, and developed an assessment a nd plan. 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 Subjective: Appetite remains low with fatigue. No vomiting but mild persistent nausea. Objective: BP 132/57 (BP Location: Left lower arm, Patient Position: Lying on back) | Puls e 82 | Temp 37.4 C (99.3 F) (Axillary) | Resp 18 | Ht 1.591 m (5' 2.64") | Wt 64 kg (141 lb 1.5 oz) | SpO2 94% Comment: moved O2 site | BMI 25.28 kg/m | BSA 1.68 m General: This is a female in no acute distress sitting in the bed. Pleasant and cooperative. HEENT: Erythema noted on buccal mucosa Skin: No diaphoresis, lesions noted. +Diffuse erythematous maculopapular rash to face/trun k/back and extremities 60% BSA (improving) Chest: CTA BL No wheezing bilaterally. CV: RRR, no murmurs. Abdomen: S/NT/ND with NABS. No guarding, rigidity or rebound tenderness. No HSM appreciat ed. Extremities: Pulses strong and equal bilaterally. No c/c/+trace to +1 bilateral lower ext remity edema. Neuro: Alert and oriented x 3. Grossly nonfocal exam. CVC: Central Line, DL - no erythema, edema, tenderness or drainage. Dressing clean, dry an d intact. Please see the Advanced Practice Provider documentation from today for the details regardin g assessment and plan. Stephenie Camarillo is a 53 y.o. female with the following hospitalization problem list: Patients Hospital Problem List: Active Hospital Problems 1) *MDS (myelodysplastic syndrome) (HCC) 2) Acute deep vein thrombosis (DVT) of both upper extremities (HCC) Developed while hospitalized for shingles and had PICC in 3) Immunocompromised state due to drug therapy 4) Pancytopenia (HCC) Plans today include: -D18 of FluCyTBI UCB (double SOC) on Gam[place], early engraftment noted -GVHD ppx-MMF until D+60 and tacrolimus goal 5-15. Level 5.7 on 05/08/19. Next level on -Strep bacteremia- Noted on 04/28. Clear on 04/29/19. Switched cefepime to zosyn 05/07/19 due to worsening rash. -Possible engraftment syndrome-Derm bx consistent with possible engraftment vs GVHD. On 0.5 mg/kg/d prednisone since 05/05. Plan to taper as tolerated, on prednisone 0.25 mg/kg/d 05/10, plan to taper every 5 days to off. Next taper 05/15/19. -Diarrhea-C Diff and pathogen panel negative. Imodium. Improved. -Continue supportive care Sejal De La Torre DO Assistant Sales Center Manager Apple Bergeron PA - 05/09/2019 12:10 PM PSTFormatting of this note might be different f rom the original. Daily GISSEL Note - Transplant [facility] Attending: Sejal De La Torre DO [facility] Physician: Sejal De La Torre DO PCP: LACY Perez Date of Admission: 04/15/2019 Hematologic Malignancy: MDS Conditioning regimen: FluCyTBI Date of transplant: 04/22/2019 Donor: CBU 1: [id number]/02 match, CBU 2: [id number]/02 match Reason for admission: Scheduled admission for myeloablative chemotherapy with subsequent st em cell infusion. ID: 53 yo with MDS admitted for FluCyTBI UCB on [place]. Hx/o HTN and PICC associated thromb osis 24 hour events/plans: -MDS: admitted for FluCyTBI (on [facility] Trial), currently day +17 -IST: tacrolimus (goal 5-15) with MMF -Pancytopenia: standard transfusion parameters. (05/03) Platelet refractory w/u positive - requires HLA matched platelets. 1U PPH today. -NTP fever: first noted 04/28 with intermittent fevers since. (05/03) Last fever 38.1. () Bld cx: +Strep bacteremia (see below). -Strep bacteremia: (04/28) NTP fever with bld cx +strep bacteremia. Repeat bld cx as of : negative. -(05/02) Per ID, cefepime to be continued until no longer neutropenic -(05/07) D/c'ed Cefepime and switched to Zosyn for possible drug rash vs. ES HTN: restart triam/HCTZ on 05/09 (home regimen) and d/c lisinopril. Hydralazine PRN -FVO: Lasix 60 mg IV, last given on 05/08 -NIRAJ: recurrent on 05/09, restart zofran BID and add zyprexa 5 mg qHS -Diarrhea: (04/25) Clostridium difficile negative. (04/25) GI path panel negative. -Imodium PRN -Consider repeat c diff/GI panel if diarrhea continues to worsen -Hemorrhoidal pain: -Nifedipine 0.3%-Lidocaine 1.5% TID PRN - pt prefers this medication vs. Proctozone -Proctozone 2.5% rectal cream TID PRN -Sitz baths after stooling and at least 2-3 times daily -Rash: first noted 05/02, follicular rash localized to upper back with progression to diffu se, confluent pruritic maculopapular with c/f hyperacute GvHD vs engraftment syndrome vs guido g rxn from cefepime. Improving s/p stopping cefepime. -(05/04) Derm consult: -Rec vaseline to be applied daily with daily dressing change at bx site. Suture to be raegan esvin on 05/18. 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 -Hypokalemia: KCl 40meq BID Subjective: Feels very "blah" today with no appetite and more nausea. Rash continues to i mprove. Still having diarrhea. Objective: Last Vitals: BP 148/74 (BP Location: Left lower arm, Patient Position: Lying on back) | Pu lse 75 | Temp 36.9 C (98.4 F) (Oral) | Resp 18 | Ht 1.591 m (5' 2.64") | Wt 63.7 kg (140 lb 6.9 oz) | SpO2 94% | BMI 25.16 kg/m | BSA 1.68 m 24 Hour Vital Min/Max: Systolic (24hrs), Av , Min:142 , Max:152 Diastolic (24hrs), Av, Min:57, Max:79 Pulse Min: 73 Max: 80 Temp Min: 36.5 C (97.7 F) Max: 37 C (98.6 F) Resp Min: 16 Max: 20 SpO2 Min: 93 % Max: 96 % Intake/Output Summary (Last 24 hours) at 05/09/2019 1210 Last data filed at 05/09/2019 1200 Gross per 24 hour Intake 3167 ml Output 5750 ml Net -2583 ml Physical Exam: General: This is a female in no acute distress sitting in the bed. Pleasant and cooperative. HEENT: PERRL. Sclerae anicteric. Mucosa pink and moist. No ulcers or exudates. +Small bl ood blister to right buccal mucosa. +Small hematoma to forehead Skin: No diaphoresis, lesions noted. +Diffuse erythematous maculopapular rash to face/trun k and extremities-improving Chest: +Few crackles to bilateral bases. No wheezing bilaterally. CV: RRR, no murmurs. Abdomen: S/NT/ND with NABS. No guarding, rigidity or rebound tenderness. No HSM appreciat ed. Extremities: Pulses strong and equal bilaterally. No c/c/+trace to +1 bilateral lower ext remity edema. Neuro: Alert and oriented x 3. Grossly nonfocal exam. CVC: Central Line, DL - no erythema, edema, tenderness or drainage. Dressing clean, dry an d intact. Laboratory Results: Recent Labs 05/07/19 2334 05/08/19 1459 05/09/19 0047 NA 139 139 139 K 4.0 3.5 3.9 CL 106 103 105 BICARB 27 28 25 BUN 23* 20 18 CR 0.73 0.74 0.63 GLU 129* 106* 132* CA 7.6* 7.8* 7.7* AST 8 10 7 ALT 13 13 12 AP 87 104* 89 TBILI 0.9 1.0 0.6 TP 6.0* 6.8 5.9* ALB 2.6* 3.0* 2.7* Recent Labs 04/21/19 1655 04/22/19 0011 05/07/19 0038 05/07/19 2334 05/09/19 0047 WBC 1.65* 0.91* < > 0.19* 0.29* 0.50* RBC 4.00 3.92* < > 2.54* 3.03* 3.07* HB 11.3* 10.9* < > 7.1* 8.5* 8.6* HCT 35.0* 34.5* < > 21.0* 25.1* 25.2* PLT 168 161 < > 9* 13* 6* NEUTROPERC 99.1* 96.5* -- -- -- 62.1 LYMPHPERC 0.9* 1.8* -- -- -- 7.6* MONOPERC 0.0* 0.0* -- -- -- 15.2* BASOPERC 0.0 0.0 -- -- -- 0.0 EOSPERC 0.0* 1.7 -- -- -- 1.5 < > = values in this interval not displayed. 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 Her hematogical history da jostin back to 2015 when she noted progressive fatigue. 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 She was working 6 days per week and thought she was working too hard. She left her job in August 2017 to give herself s ome time to feel better. She had been to various physicians in [place] for fatigue without answer s. In January 15, she developed fevers up to 104. She was tested for lyme disease, rheumatologi david conditions which were all negative. She began to notice that her counts were dropping. S he relocated to [facility] from [place] to live with her niece in 06/2018. She saw a local PA in [facility] 07/2018 Meredith Sanchez who did further testing. Labs on 10/07/18 showed normal chemistries, Bilirubin 1.4, hepatitis negative, ESR elevated at 174 with RA, RIOS C3/C4 nega tive. CBC showed WBC 2.4, Hb 10.8, Plt 166K, ANC 1529. She was referred to Dr. Sequeira ( medical oncology) on 10/29. Bone marrow biopsy was performed on 11/05 showing hypercellular mar row (70%) with 18% by morphology and 26% on flow. Mild erythroid hyperplasia and megakaryocy tic atypia. Blast immunophenotype was positive for CD33, CD45 dim, CD34, CD15, CD117, CD 11c , MPO. 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 Cytogenetics were normal. MDS and AML FISH panel was negative. NGS panel was negative for FLT3, NPM1, CEBPA, c-KIT, I DH1, IDH2, TP53. She started Vidaza locally on December 24 however developed a rash to the SQ injection and missed D3, dexamethasone was added for D4-D7. She lives in a travel trailer at her niece's house. Her niece has 5 dogs, 2 chicken, 3 cats and 1 ferret. She is applying fo r disability and not currently working. Her niece owns a [employer] and she helps out as needed . She has no healthy siblings. One brother in [place] is an alcoholic. Older sister lives i n a mcfp due to vascular dementia and severe diabetes. Since my last visit with Mirian gilman, she was admitted to the hospital 01/14-01/26 [...] option and she consen martha to kyle "[id number]: A Multicenter, Randomized, Phase III Registration Trial of Tra nsplantation of NiCord, Ex Vivo Expanded, UCB-derived, Stem and Progenitor Cells, vs. Unma nipulated UCB for Patients With Hematological Malignancies". She was randomized to SOC arm. C3 aza started on 02/21-end 03/01. Tolerated well without complications. MDS (myelodysplastic syndrome) ([facility]) 11/30/2018 Initial Diagnosis MDS (myelodysplastic syndrome) ([facility]) 12/02/2018 - 12/29/2018 Chemotherapy azaCITIDine (VIDAZA) injection 125 mg, 75 mg/m2 = 125 mg, subcutaneous, ONCE, 1 of 6 cycles 04/15/2019 - Chemotherapy fludarabine (FLUDARA) 42.5 mg in NaCl 0.9 % (NS) IV, 25 mg/m2 = 42.5 mg, intravenous, EVERY 24 HOURS, 0 of 1 cycle cyclophosphamide (CYTOXAN) 60 mg/kg = 4,000 mg in NaCl 0.9 % (NS) IV, 60 mg/kg = 4,000 mg, intravenous, EVERY 24 HOURS, 0 of 1 cycle Hospitalization History: Hematology: #Hematologic Malignancy: MDS Conditioning [...] 10 6 per kg Stem Cell Day: +17 #Pancytopenia likely r/t chemotherapy: WBC/ANC rising c/w early neutrophil engraftment -Antimicrobials below -See supportive care #Supportive Care: Growth Factor: Daily filgrastrim started Day +1 and will continue until ANC > 1500 x 2 c onsecutive days. Labs: Continue to check CBC daily Transfusion parameters: -Transfuse PRBCs for HCT <21% if asymptomatic OR <24% if symptomatic -Transfuse PPH for platelet count <10,000 sooner for s/s bleeding GVHD: No acute s/s of aGvHD Prophylaxis/Treatment: Prophylaxis with tacrolimus and MMF per [facility] protocol - Tacrolimus started D-3 (goal 5-15) -Tacrolimus 0.5 mg PO qPM -Tacrolimus 1.0 mg PO qAM -MMF given at a dose of 15 mg/kg TID D-3 to D+60 #?Engraftment Syndrome: notable for weight gain, SOB requiring 1-2L NC, hyperbilirubinemia, and diffuse non-pruritic erythematous maculopapular rash to trunk/back and extremities ~48 hours prior to count appearance -Methylpred 0.5mg/kg/day (05/05-05/09) -Pred 0.25 mg/kg/d (05/10- ) Staging: Skin: stage 0 Gut: stage 0 Liver: stage 0 Overall Grade: 0 HEENT: #Nosebleeds: started 04/30 with intermittent bleeding, controlled -Afrin PRN Pulmonary: Pretransplant PFTs completed on 03/10/19 showed FEV1 of 76% predicted, FVC of 87% predicted and adjusted DLCO of 77% predicted. #Hypoxemia: first noted 04/30 with O2 sats ~88-89%. Improved with lasix. Resolved. As of , pt saturations >90% on RA. -Lasix 60 mg IV PRN Cardiovascular: Pretransplant TTE completed on 03/10/2019 showed a LVEF of 64%. #Hx/o PICC line associated DVT:Noted on US 01/17/19 involved both right and left UE.Sh e completed 3 months ofanticoagulationwith apixiban, end date 04/14/19. 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 -Lisinopril 5 mg PO daily, started 05/07 -Dc'd lisinopril and restarted home triamterene/HCTZ on 05/09 -Hydralazine PRN #Re-evaluation of cardiac function: received cytoxan during conditioning. Increase oxygen r equirements as of 04/30. (05/02) Repeat ECHO LVEF 65-70%. GI: #Mucositis: Improved -Continue mouth rinses -Special mouthwash PRN -Oxycodone 5-15 q4hrs PRN #NIRAJ: worse again on 05/09 -Zofran ODT 8 mg q12 hours -Zyprexa 5 mg qHS, started 05/09 -Antiemetics PRN #Abdominal pain/cramping: -Simethicone 80 mg TID PRN #Hemorrhoidal pain: -Nifedipine 0.3%-Lidocaine 1.5% TID PRN -Proctozone 2.5% rectal cream TID PRN -Sitz baths after stooling and at least 2-3 times daily #Diarrhea: (04/25) Clostridium difficile negative. (04/25) GI path panel negative. -Imodium PRN -Consider repeat c diff/GI panel if diarrhea continues to worsen #Hyperbilirubinemia: total bili 1.4 on 05/05 with stable LFTs. No RUQ pain or tenderness to palpation. Resolved #Risk of gastritis: -Pepcid 20 mg BID #Risk for VOD: no e/o this currently -Ursodiol 500 mg PO BID /Renal: No acute issues Derm: #Rash: first noted 05/02, follicular rash localized to upper back with progression to diffu se, confluent maculopapular to trunk/back and all extremities with c/f hyperacute GvHD vs en graftment syndrome. Impvoring -(05/04) Derm consult: -Rec vaseline to be applied daily with daily dressing change at bx site. Suture to be raegan esvin on 05/18. 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 - Lexapro 20 mg PO daily MSK: #Myaglia/Arthralgia: -Claritin 10 mg PO daily, started 05/05 Infectious Disease: #Herpes Zoster, recent history: Noted in December, now s/p treatment with IV acyclovirfrom approx 01/10 through 01/16 then transitioned to valacyclovir 1g TID to complete an additional 7dcourse (extended for new lesions).She will continue on valacyclovir(rather than acyc lovir)through day +365 post transplant. -Valacyclovir 500mg BID #Non-neutropenic fever:Noted on 04/17. She was started on cefepime, however blood cul tures with NGTD x 72h and fevers since defervesced.She wasde-escalatedto levaquin pr ophylaxis on 04/20 (although not neutropenic), no fevers since de-escalation. -s/pCefepime (04/17 - 04/20) #NTP fever: noted 04/28 with bld cx positive for strep bacteremia (see below), UA: negative , CXR: negative for infection, trace pleural effusions. Still with intermittent fevering, c ultures being resent every 24 or greater with fevers. #Strep bacteremia: (04/28) NTP fever with bld cx +strep bacteremia. Repeat bld cx as of : negative. -(05/02) Per ID, cefepime to be continued x 7d (~05/09) or until no longer neutropenic (wh ichever is last) -(05/07) D/c'ed Cefepime and switched to Zosyn for possible drug rash vs. ES #Prophylaxis: Bacterial: see above Fungal: Posaconazole, level adequate at 0.7 on 04/28 Viral: Valacyclovir CMV: Letermovir PCP: Pentamidine prior to discharge Toxo: Pt is toxo negative, no further testing required. #Routine infectious disease testing -CMV by PCR weekly, starting after day 0. Lab Results Component Value Date CMVQUANTPCR Undetected 04/30/2019 CMVQUANTPCR Undetected 04/22/2019 CMVQUANTPCR Undetected 04/16/2019 -Asp. Galactomannan weekly, starting after day 0. Lab Results Component Value Date GALACTO Negative 05/09/2019 Fluid/Nutrition/Lytes: #Nutrition: Low bacterial diet #Fluid: Assess daily in recent setting of FVO #Lytes: Continue to check chemistries daily. Replace per supportive care protocol. -Hypokalemia: KCl 40meq BID, increased from 20meq BID on 05/05 Disposition: Pending count recovery LACY Rutledge [facility] [id number] [facility] Mailcode: [id number] [place] [address] Associated attestation - marjorieSejal rosas, - 05/10/2019 1:22 PM PSTHematologic Malign ancies/Bone Marrow Transplant Inpatient Attending Progress Note: 05/09/2019 I rounded today in conjunction with the Advanced Practice Provider. I saw the patient, reviewed the history and relevant studies, and developed an assessment a nd plan. 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 Subjective: Feeling tired today. Rash stable. Energy is down. Appetite is gone. Not having a good day. Objective: BP 121/65 (BP Location: Left lower arm, Patient Position: Sitting) | Pulse 92 | Temp 36.7 C (98.1 F) (Oral) | Resp 16 | Ht 1.591 m (5' 2.64") | Wt 65 kg (143 lb 4. 8 oz) | SpO2 94% | BMI 25.68 kg/m | BSA 1.69 m General: This is a female in no acute distress sitting in the bed. Pleasant and cooperative. HEENT: Erythema noted on buccal mucosa Skin: No diaphoresis, lesions noted. +Diffuse erythematous maculopapular rash to face/trun k/back and extremities 60% BSA Chest: +Few crackles to bilateral bases. No wheezing bilaterally. CV: RRR, no murmurs. Abdomen: S/NT/ND with NABS. No guarding, rigidity or rebound tenderness. No HSM appreciat ed. Extremities: Pulses strong and equal bilaterally. No c/c/+trace to +1 bilateral lower ext remity edema. Neuro: Alert and oriented x 3. Grossly nonfocal exam. CVC: Central Line, DL - no erythema, edema, tenderness or drainage. Dressing clean, dry an d intact. Please see the Advanced Practice Provider documentation from today for the details regardin g assessment and plan. Stephenie Camarillo is a 53 y.o. female with the following hospitalization problem list: Patients Hospital Problem List: Active Hospital Problems 1) *MDS (myelodysplastic syndrome) (HCC) 2) Acute deep vein thrombosis (DVT) of both upper extremities (HCC) Developed while hospitalized for shingles and had PICC in 3) Immunocompromised state due to drug therapy 4) Pancytopenia (HCC) Plans today include: -D17 of FluCyTBI UCB (double SOC) on [place], early engraftment noted -GVHD ppx-MMF and tacrolimus goal 5-15. Level 5.7 on 05/08/19. -Strep bacteremia- Noted on 04/28. Switch cefepime to zosyn 05/07/19 due to worsening rash. -Possible engraftment syndrome-on 0.5 mg/kg/d prednisone since 05/05. Plan to taper as sean ated, starting 05/09. -Diarrhea-C DIff and pathogen panel negative. Imodium. Monitor -Continue supportive care Sejal De La Torre DO Assistant Sales Center Manager Diane Grace PA - 05/08/2019 1:44 PM PSTFormatting of this note might be different fr om the original. Daily GISSEL Note - Transplant Admit Center for Hematologic Malignancies Attending: Sejal De La Torre DO [facility] Physician: Sejal De La Torre DO PCP: LACY Perez Date of Admission: 04/15/2019 Hematologic Malignancy: MDS Conditioning regimen: FluCyTBI Date of transplant: 04/22/2019 Donor: CBU 1: [id number]/02 match, CBU 2: [id number]/02 match Reason for admission: Scheduled admission for myeloablative chemotherapy with subsequent st em cell infusion. ID: 53 yo with MDS admitted for FluCyTBI UCB on Gam[place]. Hx/o HTN and PICC associated thromb osis 24 hour events/plans: -MDS: admitted for FluCyTBI (on [place] Trial), currently day +16 -IST: tacrolimus (goal 5-15) with MMF -Pancytopenia: standard transfusion parameters. (05/03) Platelet refractory w/u positive - requires HLA matched platelets. -NTP fever: first noted 04/28 with intermittent fevers since. (05/03) Last fever 38.1. () Bld cx: +Strep bacteremia (see below). -Strep bacteremia: (04/28) NTP fever with bld cx +strep bacteremia. Repeat bld cx as of : negative. -(05/02) Per ID, cefepime to be continued until no longer neutropenic -(05/07) D/c'ed Cefepime and switched to Zosyn for possible drug rash vs. ES HTN: -Lisinopril 5 mg PO daily, will start triam/HCTZ on 05/09 (home regimen) and d/c lisinopri l -Hydralazine PRN -FVO: -Lasix 60 mg IV given today -Diarrhea: (04/25) Clostridium difficile negative. (04/25) GI path panel negative. -Imodium PRN -Consider repeat c diff/GI panel if diarrhea continues to worsen -Hemorrhoidal pain: -Nifedipine 0.3%-Lidocaine 1.5% TID PRN - pt prefers this medication vs. Proctozone -Proctozone 2.5% rectal cream TID PRN -Sitz baths after stooling and at least 2-3 times daily -Rash: first noted 05/02, follicular rash localized to upper back with progression to diffu se, confluent pruritic maculopapular with c/f hyperacute GvHD vs engraftment syndrome vs guido g rxn from cefepime. Improving s/p stopping cefepime. -(05/04) Derm consult: -Rec vaseline to be applied daily with daily dressing change at bx site. Suture to be raegan esvin on 05/18. -Biopsy performed: sparse vacuolar dermatitis with c/f subtle GVHD -Triamcinolone 0.1% oint BID to affected areas, started 05/04 -Atarax 10 mg PO TID PRN -?Engraftment Syndrome: notable for weight gain, SOB requiring 1-2L NC, hyperbilirubinemia, and diffuse non-pruritic erythematous maculopapular rash to trunk/back and extremities ~48 hours prior to count appearance -Methylpred 0.5mg/kg/day (05/05- ) -Lytes: standard electrolyte replacement. -Hypokalemia: KCl 40meq BID Subjective: She continues to feel well. Breathing improved, does not feel crackles. Appeti te diminished over the last 24 hours but consuming ensures. No abdominal pain or cramping. D iarrhea worsened again. Continues to take imodium. Ambulating and using the incentive spirom eter. Objective: Last Vitals: BP 144/61 (BP Location: Left lower arm, Patient Position: Sitting) | Pulse 81 | Temp 36.7 C (98.1 F) (Oral) | Resp 16 | Ht 1.591 m (5' 2.64") | Wt 67 kg (147 lb 11.3 oz) | SpO2 93% | BMI 26.47 kg/m | BSA 1.72 m 24 Hour Vital Min/Max: Systolic (24hrs), Av , Min:140 , Max:171 Diastolic (24hrs), Av, Min:55, Max:97 Pulse Min: 73 Max: 88 Temp Min: 36.4 C (97.5 F) Max: 37 C (98.6 F) Resp Min: 16 Max: 16 SpO2 Min: 93 % Max: 94 % Intake/Output Summary (Last 24 hours) at 05/08/2019 1344 Last data filed at 05/08/2019 1305 Gross per 24 hour Intake 2375 ml Output 5205 ml Net -2830 ml Physical Exam: General: This is a female in no acute distress sitting in the bed. Pleasant and cooperative. HEENT: PERRL. Sclerae anicteric. Mucosa pink and moist. No ulcers or exudates. +Small bl ood blister to right buccal mucosa. +Small hematoma to forehead Skin: No diaphoresis, lesions noted. +Diffuse erythematous maculopapular rash to face/trun k and extremities Chest: +Few crackles to bilateral bases. No wheezing bilaterally. CV: RRR, no murmurs. Abdomen: S/NT/ND with NABS. No guarding, rigidity or rebound tenderness. No HSM appreciat ed. Extremities: Pulses strong and equal bilaterally. No c/c/+trace to +1 bilateral lower ext remity edema. Neuro: Alert and oriented x 3. Grossly nonfocal exam. CVC: Central Line, DL - no erythema, edema, tenderness or drainage. Dressing clean, dry an d intact. Laboratory Results: Recent Labs 05/07/19 0038 05/07/19 1430 05/07/19 2334 NA 137 138 139 K 4.2 4.1 4.0 CL 103 102 106 BICARB 26 26 27 BUN 23* 24* 23* CR 0.71 0.78 0.73 GLU 126* 104* 129* CA 8.2* 8.2* 7.6* AST 11 13 8 ALT 13 16 13 AP 92 108* 87 TBILI 0.8 1.4* 0.9 TP 6.3* 7.2 6.0* ALB 2.6* 3.0* 2.6* Recent Labs 04/21/19 0022 04/21/19 1655 04/22/19 0011 05/06/19 0002 05/07/19 0038 05/07/19 2334 WBC 2.14* 1.65* 0.91* < > 0.12* 0.19* 0.29* RBC 3.56* 4.00 3.92* < > 2.67* 2.54* 3.03* HB 10.1* 11.3* 10.9* < > 7.4* 7.1* 8.5* HCT 31.6* 35.0* 34.5* < > 21.9* 21.0* 25.1* PLT 162 168 161 < > 5* 9* 13* NEUTROPERC 94.0* 99.1* 96.5* -- -- -- -- LYMPHPERC 0.9* 0.9* 1.8* -- -- -- -- MONOPERC 0.0* 0.0* 0.0* -- -- -- -- BASOPERC 0.9 0.0 0.0 -- -- -- -- EOSPERC 0.5* 0.0* 1.7 -- -- -- -- < > = values in this interval not displayed. 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 Her hematogical history da jostin back to 2015 when she noted progressive fatigue. 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 She was working 6 days per week and thought she was working too hard. She left her job in August 2017 to give herself s ome time to feel better. She had been to various physicians in [place] for fatigue without answer s. In January 15, she developed fevers up to 104. She was tested for lyme disease, rheumatologi david conditions which were all negative. She began to notice that her counts were dropping. S he relocated to [facility] from [place] to live with her niece in 06/2018. She saw a local PA in [facility] 07/2018 Meredith Sanchez who did further testing. Labs on 10/07/18 showed normal chemistries, Bilirubin 1.4, hepatitis negative, ESR elevated at 174 with RA, RIOS C3/C4 nega tive. CBC showed WBC 2.4, Hb 10.8, Plt 166K, ANC 1529. She was referred to Dr. Sequeira ( medical oncology) on 10/29. Bone marrow biopsy was performed on 11/05 showing hypercellular mar row (70%) with 18% by morphology and 26% on flow. Mild erythroid hyperplasia and megakaryocy tic atypia. Blast immunophenotype was positive for CD33, CD45 dim, CD34, CD15, CD117, CD 11c , MPO. 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 Cytogenetics were normal. MDS and AML FISH panel was negative. NGS panel was negative for FLT3, NPM1, CEBPA, c-KIT, I DH1, IDH2, TP53. She started Vidaza locally on December 24 however developed a rash to the SQ injection and missed D3, dexamethasone was added for D4-D7. She lives in a travel trailer at her niece's house. Her niece has 5 dogs, 2 chicken, 3 cats and 1 ferret. She is applying fo r disability and not currently working. Her niece owns a PET SPA and she helps out as needed . She has no healthy siblings. One brother in [place] is an alcoholic. Older sister lives i n a mcfp due to vascular dementia and severe diabetes. Since my last visit with Mirian gilman, she was admitted to the hospital 01/14-01/26 [...] option and she consen martha to kyle "[id number]: A Multicenter, Randomized, Phase III Registration Trial of Tra nsplantation of NiCord, Ex Vivo Expanded, UCB-derived, Stem and Progenitor Cells, vs. Unma nipulated UCB for Patients With Hematological Malignancies". She was randomized to SOC arm. C3 aza started on 02/21-end 03/01. Tolerated well without complications. MDS (myelodysplastic syndrome) ([facility]) 11/30/2018 Initial Diagnosis MDS (myelodysplastic syndrome) (HCC) 12/02/2018 - 12/29/2018 Chemotherapy azaCITIDine (VIDAZA) injection 125 mg, 75 mg/m2 = 125 mg, subcutaneous, ONCE, 1 of 6 cycles 04/15/2019 - Chemotherapy fludarabine (FLUDARA) 42.5 mg in NaCl 0.9 % (NS) IV, 25 mg/m2 = 42.5 mg, intravenous, EVERY 24 HOURS, 0 of 1 cycle cyclophosphamide (CYTOXAN) 60 mg/kg = 4,000 mg in NaCl 0.9 % (NS) IV, 60 mg/kg = 4,000 mg, intravenous, EVERY 24 HOURS, 0 of 1 cycle Hospitalization History: Hematology: #Hematologic Malignancy: MDS Conditioning [...] 10 6 per kg Stem Cell Day: +16 #Pancytopenia likely r/t chemotherapy: -Antimicrobials below -See supportive care #Supportive Care: Growth Factor: Daily filgrastrim started Day +1 and will continue until ANC > 1500 x 2 c onsecutive days. Labs: Continue to check CBC daily Transfusion parameters: -Transfuse PRBCs for HCT <21% if asymptomatic OR <24% if symptomatic -Transfuse PPH for platelet count <10,000 sooner for s/s bleeding GVHD: No acute s/s of aGvHD Prophylaxis/Treatment: Prophylaxis with tacrolimus and MMF per [place] protocol - Tacrolimus started D-3 (goal 5-15) -Tacrolimus 0.5 mg PO qPM -Tacrolimus 1.0 mg PO qAM -MMF given at a dose of 15 mg/kg TID D-3 to D+60 #?Engraftment Syndrome: notable for weight gain, SOB requiring 1-2L NC, hyperbilirubinemia, and diffuse non-pruritic erythematous maculopapular rash to trunk/back and extremities ~48 hours prior to count appearance -Methylpred 0.5mg/kg/day (05/05- ) Staging: Skin: stage 0 Gut: stage 0 Liver: stage 0 Overall Grade: 0 HEENT: #Nosebleeds: started 04/30 with intermittent bleeding, controlled -Afrin PRN Pulmonary: Pretransplant PFTs completed on 03/10/19 showed FEV1 of 76% predicted, FVC of 87% predicted and adjusted DLCO of 77% predicted. #Hypoxemia: first noted 04/30 with O2 sats ~88-89%. Improved with lasix. Resolved. As of , pt saturations >90% on RA. -Lasix 60 mg IV PRN Cardiovascular: Pretransplant TTE completed on 03/10/2019 showed a LVEF of 64%. #Hx/o PICC line associated DVT:Noted on US 01/17/19 involved both right and left UE.Sh e completed 3 months ofanticoagulationwith apixiban, end date 04/14/19. 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 -Lisinopril 5 mg PO daily, started 05/07 -Hydralazine PRN #Re-evaluation of cardiac function: received cytoxan during conditioning. Increase oxygen r equirements as of 04/30. (05/02) Repeat ECHO LVEF 65-70%. GI: #Mucositis: Improved -Continue mouth rinses -Special mouthwash PRN -Oxycodone 5-15 q4hrs PRN #NIRAJ: controlled -Zofran ODT 8 mg q12 hours PRN -Antiemetics PRN #Abdominal pain/cramping: -Simethicone 80 mg TID PRN #Hemorrhoidal pain: -Nifedipine 0.3%-Lidocaine 1.5% TID PRN -Proctozone 2.5% rectal cream TID PRN -Sitz baths after stooling and at least 2-3 times daily #Diarrhea: (04/25) Clostridium difficile negative. (04/25) GI path panel negative. -Imodium PRN -Consider repeat c diff/GI panel if diarrhea continues to worsen #Hyperbilirubinemia: total bili 1.4 on 05/05 with stable LFTs. No RUQ pain or tenderness to palpation. Resolving -Continue to monitor -Consider US of liver if progression or symptoms develop #Risk of gastritis: -Pepcid 20 mg BID #Risk for VOD: no e/o this currently -Ursodiol 500 mg PO BID /Renal: No acute issues Derm: #Rash: first noted 05/02, follicular rash localized to upper back with progression to diffu se, confluent maculopapular to trunk/back and all extremities with c/f hyperacute GvHD vs en graftment syndrome. Impvoring -(05/04) Derm consult: -Rec vaseline to be applied daily with daily dressing change at bx site. Suture to be raegan esvin on 05/18. 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 - Lexapro 20 mg PO daily MSK: #Myaglia/Arthralgia: -Claritin 10 mg PO daily, started 05/05 Infectious Disease: #Herpes Zoster, recent history: Noted in December, now s/p treatment with IV acyclovirfrom approx 01/10 through 01/16 then transitioned to valacyclovir 1g TID to complete an additional 7dcourse (extended for new lesions).She will continue on valacyclovir(rather than acyc lovir)through day +365 post transplant. -Valacyclovir 500mg BID #Non-neutropenic fever:Noted on 04/17. She was started on cefepime, however blood cul tures with NGTD x 72h and fevers since defervesced.She wasde-escalatedto levaquin pr ophylaxis on 04/20 (although not neutropenic), no fevers since de-escalation. -s/pCefepime (04/17 - 04/20) #NTP fever: noted 04/28 with bld cx positive for strep bacteremia (see below), UA: negative , CXR: negative for infection, trace pleural effusions. Still with intermittent fevering, c ultures being resent every 24 or greater with fevers. #Strep bacteremia: (04/28) NTP fever with bld cx +strep bacteremia. Repeat bld cx as of : negative. -(05/02) Per ID, cefepime to be continued x 7d (~05/09) or until no longer neutropenic (wh ichever is last) -(05/07) D/c'ed Cefepime and switched to Zosyn for possible drug rash vs. ES #Prophylaxis: Bacterial: see above Fungal: Posaconazole Viral: Valacyclovir CMV: Letermovir PCP: Pentamidine prior to discharge Toxo: Pt is toxo negative, no further testing required. #Routine infectious disease testing -CMV by PCR weekly, starting after day 0. Lab Results Component Value Date CMVQUANTPCR Undetected 04/30/2019 CMVQUANTPCR Undetected 04/22/2019 CMVQUANTPCR Undetected 04/16/2019 -Asp. Galactomannan weekly, starting after day 0. Lab Results Component Value Date GALACTO Negative 05/02/2019 Fluid/Nutrition/Lytes: #Nutrition: Low bacterial diet #Fluid: Assess daily in recent setting of FVO #Lytes: Continue to check chemistries daily. Replace per supportive care protocol. -Hypokalemia: KCl 40meq BID, increased from 20meq BID on 05/05 Disposition: Pending count recovery LACY Hogan [facility] [id number] Mailcode: [id number] [place] [address] Associated attestation - Sejal De La Torre DO - 05/10/2019 1:19 PM PSTHematologic Malign ancies/Bone Marrow Transplant Inpatient Attending Progress Note: 05/08/2019 I rounded today in conjunction with the Advanced Practice Provider. I saw the patient, reviewed the history and relevant studies, and developed an assessment a nd plan. 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 Subjective: Feeling good today. Rash improved. Appetite remains low. Still having diarrhea. Objective: BP 121/65 (BP Location: Left lower arm, Patient Position: Sitting) | Pulse 92 | Temp 36.7 C (98.1 F) (Oral) | Resp 16 | Ht 1.591 m (5' 2.64") | Wt 65 kg (143 lb 4. 8 oz) | SpO2 94% | BMI 25.68 kg/m | BSA 1.69 m General: This is a female in no acute distress sitting in the bed. Pleasant and cooperative. HEENT: Erythema noted on buccal mucosa Skin: No diaphoresis, lesions noted. +Diffuse erythematous maculopapular rash to face/trun k/back and extremities 60% BSA Chest: +Few crackles to bilateral bases. No wheezing bilaterally. CV: RRR, no murmurs. Abdomen: S/NT/ND with NABS. No guarding, rigidity or rebound tenderness. No HSM appreciat ed. Extremities: Pulses strong and equal bilaterally. No c/c/+trace to +1 bilateral lower ext remity edema. Neuro: Alert and oriented x 3. Grossly nonfocal exam. CVC: Central Line, DL - no erythema, edema, tenderness or drainage. Dressing clean, dry an d intact. Please see the Advanced Practice Provider documentation from today for the details regardin g assessment and plan. Stephenie Camarillo is a 53 y.o. female with the following hospitalization problem list: Patients Hospital Problem List: Active Hospital Problems 1) *MDS (myelodysplastic syndrome) (HCC) 2) Acute deep vein thrombosis (DVT) of both upper extremities (HCC) Developed while hospitalized for shingles and had PICC in 3) Immunocompromised state due to drug therapy 4) Pancytopenia (HCC) Plans today include: -D16 of FluCyTBI UCB (double SOC) on [place], early engraftment noted -GVHD ppx-MMF and tacrolimus goal 5-15. -Strep bacteremia- Noted on 04/28. Switch cefepime to zosyn 05/07/19 due to worsening rash. -Possible engraftment syndrome-on 0.5 mg/kg/d prednisone since 05/05. Plan to taper as sean ated, starting 05/09. -Diarrhea-C DIff and pathogen panel negative. Imodium. Monitor -Continue supportive care Sejal De La Torre DO Assistant Sales Center Manager Diane Grace PA - 05/07/2019 1:00 PM PSTFormatting of this note might be different fr om the original. Daily GISSEL Note - Transplant [facility] Attending: Sejal De La Torre MD [facility] Physician: Sejal De La Torre MD PCP: LACY Perez Date of Admission: 04/15/2019 Hematologic Malignancy: MDS Conditioning regimen: FluCyTBI Date of transplant: 04/22/2019 Donor: CBU 1: [id number]/02 match, CBU 2: [id number]/02 match Reason for admission: Scheduled admission for myeloablative chemotherapy with subsequent st em cell infusion. ID: 53 yo with MDS admitted for FluCyTBI UCB on [facility]. HX HTN, PICC associated thrombosis 24 hour events/plans: -MDS: admitted for FluCyTBI (on [facility] Trial), currently day +15 -Pancytopenia: standard transfusion parameters. (05/03) Platelet refractory w/u positive - requires HLA matched platelets -Transfused 1 unit pRBC and PPH today -NTP fever: first noted 04/28 with intermittent fevers since. (05/03) Last fever 38.1. () Bld cx: +Strep bacteremia (see below). -Strep bacteremia: (04/28) NTP fever with bld cx +strep bacteremia. Repeat bld cx as of : negative. -(05/02) Per ID, cefepime to be continued x 7d (~05/09) or until no longer neutropenic (wh ichever is last) -(05/07) D/c'ed Cefepime and switched to Zosyn for possible drug rash vs. ES HTN: -Lisinopril 5 mg PO daily -Hydralazine PRN -Hypoxemia: first noted 04/30 with O2 sats ~88-89%. Improved with lasix, but still requires daily 1-2L NC. Improving. Now, >90% on RA. -Lasix 40-60 mg IV PRN -Gave Lasix 60mg IV today -Diarrhea: (04/25) Clostridium difficile negative. (04/25) GI path panel negative. -Imodium PRN -Hemorrhoidal pain: -Nifedipine 0.3%-Lidocaine 1.5% TID PRN - pt prefers this medication vs. Proctozone -Proctozone 2.5% rectal cream TID PRN -Sitz baths after stooling and at least 2-3 times daily -Rash: first noted 05/02, follicular rash localized to upper back with progression to diffu se, confluent maculopapular with c/f hyperacute GvHD vs engraftment syndrome vs drug rxn fro m cefepime. -(05/04) Derm consult: -Rec vaseline to be applied daily with daily dressing change at bx site. Suture to be raegan esvin on 05/18. 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 -Hypokalemia: KCl 40meq BID Subjective: She feels well today. Feels overall better the last two days. Breathing better , not requiring oxygen during the day. Tolerating solid food and liquids. No abdominal pain or cramping. Diarrhea improved and continues to take imodium as needed. Ambulating on her ow n. The rash more red today and itchy. Objective: Last Vitals: BP 162/87 (BP Location: Left lower arm, Patient Position: Lying on back) | Pu lse 76 | Temp 36.2 C (97.2 F) (Oral) | Resp 16 | Ht 1.591 m (5' 2.64") | Wt 67.1 kg (147 lb 14.9 oz) | SpO2 92% | BMI 26.51 kg/m | BSA 1.72 m 24 Hour Vital Min/Max: Systolic (24hrs), Av , Min:125 , Max:176 Diastolic (24hrs), Av, Min:49, Max:90 Pulse Min: 72 Max: 79 Temp Min: 36.2 C (97.2 F) Max: 36.4 C (97.5 F) Resp Min: 16 Max: 16 SpO2 Min: 92 % Max: 97 % Intake/Output Summary (Last 24 hours) at 05/07/2019 1300 Last data filed at 05/07/2019 1214 Gross per 24 hour Intake 2840 ml Output 2755 ml Net 85 ml Physical Exam: General: This is a female in no acute distress sitting in the bed. Pleasant and cooperative. HEENT: PERRL. Sclerae anicteric. Mucosa pink and moist. No ulcers or exudates. +Small bl ood blister to right buccal mucosa. Skin: No diaphoresis, lesions noted. +Diffuse erythematous maculopapular rash to face/trun k/back and extremities Chest: +Few crackles to bilateral bases. No wheezing bilaterally. CV: RRR, no murmurs. Abdomen: S/NT/ND with NABS. No guarding, rigidity or rebound tenderness. No HSM appreciat ed. Extremities: Pulses strong and equal bilaterally. No c/c/+trace to +1 bilateral lower ext remity edema. Neuro: Alert and oriented x 3. Grossly nonfocal exam. CVC: Central Line, DL - no erythema, edema, tenderness or drainage. Dressing clean, dry an d intact. Laboratory Results: Recent Labs 05/06/19 0002 05/06/19 1346 05/07/19 0038 NA 137 140 137 K 3.3* 3.5 4.2 CL 101 106 103 BICARB 27 28 26 BUN 13 20 23* CR 0.58* 0.73 0.71 GLU 153* 137* 126* CA 7.8* 7.8* 8.2* AST 11 12 11 ALT 13 14 13 AP 91 95 92 TBILI 1.0 0.9 0.8 TP 6.5 6.6 6.3* ALB 2.5* 2.6* 2.6* Recent Labs 04/21/19 0022 04/21/19 1655 04/22/19 0011 05/05/19 0033 05/05/19 1007 05/06/19 0002 05/07/19 0038 WBC 2.14* 1.65* 0.91* < > 0.11* -- 0.12* 0.19* RBC 3.56* 4.00 3.92* < > 2.85* -- 2.67* 2.54* HB 10.1* 11.3* 10.9* < > 7.8* -- 7.4* 7.1* HCT 31.6* 35.0* 34.5* < > 23.6* -- 21.9* 21.0* PLT 162 168 161 < > 6* 7* 5* 9* NEUTROPERC 94.0* 99.1* 96.5* -- -- -- -- -- LYMPHPERC 0.9* 0.9* 1.8* -- -- -- -- -- MONOPERC 0.0* 0.0* 0.0* -- -- -- -- -- BASOPERC 0.9 0.0 0.0 -- -- -- -- -- EOSPERC 0.5* 0.0* 1.7 -- -- -- -- -- < > = values in this interval not displayed. 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 Her hematogical history da jostin back to 2015 when she noted progressive fatigue. 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 She was working 6 days per week and thought she was working too hard. She left her job in August 2017 to give herself s ome time to feel better. She had been to various physicians in [place] for fatigue without answer s. In January 15, she developed fevers up to 104. She was tested for lyme disease, rheumatologi david conditions which were all negative. She began to notice that her counts were dropping. S he relocated to [facility] from [place] to live with her niece in 06/2018. She saw a local PA in [facility] 07/2018 Meredith Sanchez who did further testing. Labs on 10/07/18 showed normal chemistries, Bilirubin 1.4, hepatitis negative, ESR elevated at 174 with RA, RIOS C3/C4 nega tive. CBC showed WBC 2.4, Hb 10.8, Plt 166K, ANC 1529. She was referred to Dr. Sequeira ( medical oncology) on 10/29. Bone marrow biopsy was performed on 11/05 showing hypercellular mar row (70%) with 18% by morphology and 26% on flow. Mild erythroid hyperplasia and megakaryocy tic atypia. Blast immunophenotype was positive for CD33, CD45 dim, CD34, CD15, CD117, CD 11c , MPO. 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 Cytogenetics were normal. MDS and AML FISH panel was negative. NGS panel was negative for FLT3, NPM1, CEBPA, c-KIT, I DH1, IDH2, TP53. She started Vidaza locally on December 24 however developed a rash to the SQ injection and missed D3, dexamethasone was added for D4-D7. She lives in a travel trailer at her niece's house. Her niece has 5 dogs, 2 chicken, 3 cats and 1 ferret. She is applying fo r disability and not currently working. Her niece owns a PET SPA and she helps out as needed . She has no healthy siblings. One brother in [place] is an alcoholic. Older sister lives i n a mcfp due to vascular dementia and severe diabetes. Since my last visit with Mirian gilman, she was admitted to the hospital 01/14-01/26 [...] option and she consen martha to kyle "[id number]: A Multicenter, Randomized, Phase III Registration Trial of Tra nsplantation of NiCord, Ex Vivo Expanded, UCB-derived, Stem and Progenitor Cells, vs. Unma nipulated UCB for Patients With Hematological Malignancies". She was randomized to SOC arm. C3 aza started on 02/21-end 03/01. Tolerated well without complications. MDS (myelodysplastic syndrome) ([facility]) 11/30/2018 Initial Diagnosis MDS (myelodysplastic syndrome) ([facility]) 12/02/2018 - 12/29/2018 Chemotherapy azaCITIDine (VIDAZA) injection 125 mg, 75 mg/m2 = 125 mg, subcutaneous, ONCE, 1 of 6 cycles 04/15/2019 - Chemotherapy fludarabine (FLUDARA) 42.5 mg in NaCl 0.9 % (NS) IV, 25 mg/m2 = 42.5 mg, intravenous, EVERY 24 HOURS, 0 of 1 cycle cyclophosphamide (CYTOXAN) 60 mg/kg = 4,000 mg in NaCl 0.9 % (NS) IV, 60 mg/kg = 4,000 mg, intravenous, EVERY 24 HOURS, 0 of 1 cycle Hospitalization History: Hematology: #Hematologic Malignancy: MDS Conditioning [...] 10 6 per kg Stem Cell Day: +15 #Pancytopenia likely r/t chemotherapy: -Antimicrobials below -See supportive care #Supportive Care: Growth Factor: Daily filgrastrim started Day +1 and will continue until ANC > 1500 x 2 c onsecutive days. Labs: Continue to check CBC daily Transfusion parameters: -Transfuse PRBCs for HCT <21% if asymptomatic OR <24% if symptomatic -Transfuse PPH for platelet count <10,000 sooner for s/s bleeding GVHD: No acute s/s of aGvHD Prophylaxis/Treatment: [facility] - Tacrolimus started D-3 (goal 5-15) -Tacrolimus 0.5 mg PO qPM -Tacrolimus 1.0 mg PO qAM -MMF given at a dose of 15 mg/kg TID D-3 to D+60 #?Engraftment Syndrome: notable for weight gain, SOB requiring 1-2L NC, hyperbilirubinemia, and full body erythematous maculopapular rash. -Methylpred 0.5mg/kg/day, started 05/05 Staging: Skin: stage 0 Gut: stage 0 Liver: stage 0 Overall Grade: 0 HEENT: #Nosebleeds: started 04/30 with intermittent bleeding, controlled -Afrin PRN Pulmonary: Pretransplant PFTs completed on 03/10/19 showed FEV1 of 76% predicted, FVC of 87% predicted and adjusted DLCO of 77% predicted. #Hypoxemia: first noted 04/30 with O2 sats ~88-89%. Improved with lasix, but still requires daily 1-2L NC. Improving. As of 05/07 in AM, pt saturations >90% on RA. -Lasix 40-60 mg IV PRN Cardiovascular: Pretransplant TTE completed on 03/10/2019 showed a LVEF of 64%. #Hx/o PICC line associated DVT:Noted on US 01/17/19 involved both right and left UE.Sh e completed 3 months ofanticoagulationwith apixiban, end date 04/14/19. 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 Will start different regimen inpatient. -Lisinopril 5 mg PO daily, started 05/07 -Hydralazine PRN #Re-evaluation of cardiac function: received cytoxan during conditioning. Increase oxygen r equirements as of 04/30. (05/02) Repeat ECHO LVEF 65-70%. GI: #Mucositis: Improved -Continue mouth rinses -Special mouthwash PRN -Oxycodone 5-15 q4hrs PRN #NIRAJ: controlled -Zofran ODT 8 mg q12hrs -Antiemetics PRN #Abdominal pain/cramping: -Simethicone 80 mg TID PRN #Hemorrhoidal pain: -Nifedipine 0.3%-Lidocaine 1.5% TID PRN -Proctozone 2.5% rectal cream TID PRN -Sitz baths after stooling and at least 2-3 times daily #Diarrhea: (04/25) Clostridium difficile negative. (04/25) GI path panel negative. -Imodium PRN #Hyperbilirubinemia: total bili 1.4 on 05/05 with stable LFTs. No RUQ pain or tenderness to palpation. -Continue to monitor -Consider US of liver if progression or symptoms develop #Risk of gastritis: -Pepcid 20 mg BID #Risk for VOD: no e/o this currently -Ursodiol 500 mg PO BID /Renal: No acute issues Derm: #Rash: first noted 05/02, follicular rash localized to upper back with progression to diffu se, confluent maculopapular to trunk/back and all extremities with c/f hyperacute GvHD vs en graftment syndrome. -(05/04) Derm consult: -Rec vaseline to be applied daily with daily dressing change at bx site. Suture to be raegan esvin on 05/18. 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 - Lexapro 20 mg PO daily MSK: #Myaglia/Arthralgia: -Claritin 10 mg PO daily, started 05/05 Infectious Disease: #Herpes Zoster, recent history: Noted in December, now s/p treatment with IV acyclovirfrom approx 01/10 through 01/16 then transitioned to valacyclovir 1g TID to complete an additional 7dcourse (extended for new lesions).She will continue on valacyclovir(rather than acyc lovir)through day +365 post transplant. -Valacyclovir 500mg BID #Non-neutropenic fever:Noted on 04/17. She was started on cefepime, however blood cul tures with NGTD x 72h and fevers since defervesced.She wasde-escalatedto levaquin pr ophylaxis on 04/20 (although not neutropenic), no fevers since de-escalation. -s/pCefepime (04/17 - 04/20) #NTP fever: noted 04/28 with bld cx positive for strep bacteremia (see below), UA: negative , CXR: negative for infection, trace pleural effusions. Still with intermittent fevering, c ultures being resent every 24 or greater with fevers. #Strep bacteremia: (04/28) NTP fever with bld cx +strep bacteremia. Repeat bld cx as of : negative. -(05/02) Per ID, cefepime to be continued x 7d (~05/09) or until no longer neutropenic (wh ichever is last) -(05/07) D/c'ed Cefepime and switched to Zosyn for possible drug rash vs. ES #Prophylaxis: Bacterial: see above Fungal: Posaconazole Viral: Valacyclovir CMV: Letermovir PCP: Pentamidine prior to discharge Toxo: Pt is toxo negative, no further testing required. #Routine infectious disease testing -CMV by PCR weekly, starting after day 0. Lab Results Component Value Date CMVQUANTPCR Undetected 04/30/2019 CMVQUANTPCR Undetected 04/22/2019 CMVQUANTPCR Undetected 04/16/2019 -Asp. Galactomannan weekly, starting after day 0. Lab Results Component Value Date GALACTO Negative 05/02/2019 Fluid/Nutrition/Lytes: #Nutrition: Low bacterial diet #Fluid: Assess daily in recent setting of FVO #Lytes: Continue to check chemistries daily. Replace per supportive care protocol. -Hypokalemia: KCl 40meq BID, increased from 20meq BID on 05/05 Disposition: Pending count recovery LACY Hogan [facility] [address]K [id number] Mailcode: [id number] [place] [address] Associated attestation - Sejal De La Torre DO - 05/10/2019 1:18 PM PSTHematologic Malign ancies/Bone Marrow Transplant Inpatient Attending Progress Note: 05/07/2019 I rounded today in conjunction with the Advanced Practice Provider. I saw the patient, reviewed the history and relevant studies, and developed an assessment a nd plan. 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 Subjective: Feeling ok today. Rash worsening today. Breathing is better and no longer requi ring oxygen. Objective: BP 121/65 (BP Location: Left lower arm, Patient Position: Sitting) | Pulse 92 | Temp 36.7 C (98.1 F) (Oral) | Resp 16 | Ht 1.591 m (5' 2.64") | Wt 65 kg (143 lb 4. 8 oz) | SpO2 94% | BMI 25.68 kg/m | BSA 1.69 m General: This is a female in no acute distress sitting in the bed. Pleasant and cooperative. HEENT: Erythema noted on buccal mucosa Skin: No diaphoresis, lesions noted. +Diffuse erythematous maculopapular rash to face/trun k/back and extremities 60% BSA Chest: +Few crackles to bilateral bases. No wheezing bilaterally. CV: RRR, no murmurs. Abdomen: S/NT/ND with NABS. No guarding, rigidity or rebound tenderness. No HSM appreciat ed. Extremities: Pulses strong and equal bilaterally. No c/c/+trace to +1 bilateral lower ext remity edema. Neuro: Alert and oriented x 3. Grossly nonfocal exam. CVC: Central Line, DL - no erythema, edema, tenderness or drainage. Dressing clean, dry an d intact. Please see the Advanced Practice Provider documentation from today for the details regardin g assessment and plan. Stephenie Camarillo is a 53 y.o. female with the following hospitalization problem list: Patients Hospital Problem List: Active Hospital Problems 1) *MDS (myelodysplastic syndrome) (HCC) 2) Acute deep vein thrombosis (DVT) of both upper extremities (HCC) Developed while hospitalized for shingles and had PICC in 3) Immunocompromised state due to drug therapy 4) Pancytopenia (HCC) Plans today include: -D15 of FluCyTBI UCB (double SOC) on [place], early engraftment noted -GVHD ppx-MMF and tacrolimus goal 5-15. -Strep bacteremia- Noted on 04/28. Switch cefepime to zosyn 05/07/19 due to worsening rash. -Possible engraftment syndrome-on 0.5 mg/kg/d prednisone since 05/05. Plan to taper as sean ated. -Diarrhea-C DIff and pathogen panel negative. Imodium. Monitor -Continue supportive care Sejal Saultz, DO Assistant Sales Center Manager Diane Grace PA - 05/06/2019 3:58 PM PSTFormatting of this note might be different fr om the original. Daily GISSEL Note - Transplant Ad[facility] Attending: Reji Carrington MD [facility] Physician: Sejal De La Torre MD PCP: LACY Perez Date of Admission: 04/15/2019 Hematologic Malignancy: MDS Conditioning regimen: FluCyTBI Date of transplant: 04/22/2019 Donor: CBU 1: [id number] match, CBU 2: [id number]/02 match Reason for admission: Scheduled admission for myeloablative chemotherapy with subsequent st em cell infusion. ID: 53 yo with MDS admitted for FluCyTBI UCB on [facility]. HX HTN, PICC associated thrombosis 24 hour events/plans: -MDS: admitted for FluCyTBI (on [facility] Trial), currently day +14 -Pancytopenia: standard transfusion parameters. Daily platelet transfusions have been requi red since 04/27 -Transfused 1 PPH today -(05/03) Platelet refractory w/u: PENDING -NTP fever: first noted 04/28 with intermittent fevers since. (05/03) Last fever. (04/28) B ld cx: +Strep bacteremia (see below). -Strep bacteremia: (04/28) NTP fever with bld cx +strep bacteremia. Repeat bld cx as of : negative. -(05/02) Per ID, cefepime to be continued x 7d (~05/09) or until no longer neutropenic (wh ichever is last) -Re-evaluation of cardiac function: received cytoxan during conditioning. Increase oxygen r equirements as of 04/30. Now requiring 1-2L NC. (05/02) Repeat ECHO LVEF 65-70%. -Hypoxemia: first noted 04/30 with O2 sats ~88-89%. Improved with lasix, but still requires daily 1-2L NC. -Lasix 20-40 mg IV PRN -Gave Lasix 40mg IV today -Diarrhea: (04/25) Clostridium difficile negative. (04/25) GI path panel negative. -Imodium PRN -Hemorrhoidal pain: -Nifedipine 0.3%-Lidocaine 1.5% TID PRN - pt prefers this medication vs. Proctozone -Proctozone 2.5% rectal cream TID PRN -Sitz baths after stooling and at least 2-3 times daily -Rash: first noted 05/02, follicular rash localized to upper back with progression to diffu se, confluent maculopapular with c/f hyperacute GvHD vs engraftment syndrome. Improving -(05/04) Derm consult: -Rec vaseline to be applied daily with daily dressing change at bx site. Suture to be raegan esvin on 05/18. 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 -Transfused potassium today -Hypokalemia: KCl 40meq BID Subjective: She feels very well today. Her breathing is better. Enjoying her breakfast in the recliner. No abdominal pain or cramping. Diarrhea improving. Imodium helping. Ambulating on her own, but still gets SOB. Objective: Last Vitals: BP 159/80 (BP Location: Left lower arm, Patient Position: Sitting) | Pulse 73 | Temp 36.3 C (97.3 F) (Oral) | Resp 16 | Ht 1.591 m (5' 2.64") | Wt 65.8 kg (145 l b 1 oz) | SpO2 94% | BMI 25.99 kg/m | BSA 1.71 m 24 Hour Vital Min/Max: Systolic (24hrs), Av , Min:106 , Max:159 Diastolic (24hrs), Av, Min:43, Max:82 Pulse Min: 68 Max: 99 Temp Min: 36.3 C (97.3 F) Max: 37.2 C (99 F) Resp Min: 16 Max: 20 SpO2 Min: 90 % Max: 95 % Intake/Output Summary (Last 24 hours) at 05/06/2019 1558 Last data filed at 05/06/2019 1528 Gross per 24 hour Intake 4206 ml Output 3755 ml Net 451 ml Physical Exam: General: This is a female in no acute distress sitting in the recliner. Pleasant and cooperative. HEENT: PERRL. Sclerae anicteric. Mucosa pink and moist. No ulcers or exudates. Skin: No diaphoresis, lesions noted. +Diffuse erythematous maculopapular rash to face/trun k/back and extremities Chest: +Crackles to bilateral bases. No wheezing bilaterally. CV: RRR, no murmurs. Abdomen: S/NT/ND with NABS. No guarding, rigidity or rebound tenderness. No HSM appreciat ed. Extremities: Pulses strong and equal bilaterally. No c/c/+trace bilateral lower extremity edema. Neuro: Alert and oriented x 3. Grossly nonfocal exam. CVC: Central Line, DL - no erythema, edema, tenderness or drainage. Dressing clean, dry an d intact. Laboratory Results: Recent Labs 05/05/19 0033 05/06/19 0002 05/06/19 1346 NA 138 137 140 K 3.1* 3.3* 3.5 CL 103 101 106 BICARB 27 27 28 BUN 12 13 20 CR 0.60 0.58* 0.73 GLU 106* 153* 137* CA 7.9* 7.8* 7.8* AST 11 11 12 ALT 11 13 14 AP 88 91 95 TBILI 1.4* 1.0 0.9 TP 6.5 6.5 6.6 ALB 2.6* 2.5* 2.6* Recent Labs 04/21/19 0022 04/21/19 1655 04/22/19 0011 05/04/19 0052 05/05/19 0033 05/05/19 1007 05/06/19 0002 WBC 2.14* 1.65* 0.91* < > <0.10* -- 0.11* -- 0.12* RBC 3.56* 4.00 3.92* < > 2.64* -- 2.85* -- 2.67* HB 10.1* 11.3* 10.9* < > 7.4* -- 7.8* -- 7.4* HCT 31.6* 35.0* 34.5* < > 21.9* -- 23.6* -- 21.9* PLT 162 168 161 < > 1* < > 6* 7* 5* NEUTROPERC 94.0* 99.1* 96.5* -- -- -- -- -- -- LYMPHPERC 0.9* 0.9* 1.8* -- -- -- -- -- -- MONOPERC 0.0* 0.0* 0.0* -- -- -- -- -- -- BASOPERC 0.9 0.0 0.0 -- -- -- -- -- -- EOSPERC 0.5* 0.0* 1.7 -- -- -- -- -- -- < > = values in this interval not displayed. 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 Her hematogical history da jostin back to 2015 when she noted progressive fatigue. 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 She was working 6 days per week and thought she was working too hard. She left her job in August 2017 to give herself s ome time to feel better. She had been to various physicians in [place] for fatigue without answer s. In January 15, she developed fevers up to 104. She was tested for lyme disease, rheumatologi david conditions which were all negative. She began to notice that her counts were dropping. S he relocated to [facility] from [place] to live with her niece in 06/2018. She saw a local PA in [facility] 07/2018 Meredith Sanchez who did further testing. Labs on 10/07/18 showed normal chemistries, Bilirubin 1.4, hepatitis negative, ESR elevated at 174 with RA, RIOS C3/C4 nega tive. CBC showed WBC 2.4, Hb 10.8, Plt 166K, ANC 1529. She was referred to Dr. Sequeira ( medical oncology) on 10/29. Bone marrow biopsy was performed on 11/05 showing hypercellular mar row (70%) with 18% by morphology and 26% on flow. Mild erythroid hyperplasia and megakaryocy tic atypia. Blast immunophenotype was positive for CD33, CD45 dim, CD34, CD15, CD117, CD 11c , MPO. 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 Cytogenetics were normal. MDS and AML FISH panel was negative. NGS panel was negative for FLT3, NPM1, CEBPA, c-KIT, I DH1, IDH2, TP53. She started Vidaza locally on December 24 however developed a rash to the SQ injection and missed D3, dexamethasone was added for D4-D7. She lives in a travel trailer at her niece's house. Her niece has 5 dogs, 2 chicken, 3 cats and 1 ferret. She is applying fo r disability and not currently working. Her niece owns a PET [employer] and she helps out as needed . She has no healthy siblings. One brother in [place] is an alcoholic. Older sister lives i n a mcfp due to vascular dementia and severe diabetes. Since my last visit with Mirian gilman, she was admitted to the hospital 01/14-01/26 [...] option and she consen martha to kyle "[id number]: A Multicenter, Randomized, Phase III Registration Trial of Tra nsplantation of NiCord, Ex Vivo Expanded, UCB-derived, Stem and Progenitor Cells, vs. Unma nipulated UCB for Patients With Hematological Malignancies". She was randomized to SOC arm. C3 aza started on 02/21-end 03/01. Tolerated well without complications. MDS (myelodysplastic syndrome) (HCC) 11/30/2018 Initial Diagnosis MDS (myelodysplastic syndrome) (HCC) 12/02/2018 - 12/29/2018 Chemotherapy azaCITIDine (VIDAZA) injection 125 mg, 75 mg/m2 = 125 mg, subcutaneous, ONCE, 1 of 6 cycles 04/15/2019 - Chemotherapy fludarabine (FLUDARA) 42.5 mg in NaCl 0.9 % (NS) IV, 25 mg/m2 = 42.5 mg, intravenous, EVERY 24 HOURS, 0 of 1 cycle cyclophosphamide (CYTOXAN) 60 mg/kg = 4,000 mg in NaCl 0.9 % (NS) IV, 60 mg/kg = 4,000 mg, intravenous, EVERY 24 HOURS, 0 of 1 cycle Hospitalization History: Hematology: #Hematologic Malignancy: MDS Conditioning [...] 10 6 per kg Stem Cell Day: +14 #Pancytopenia likely r/t chemotherapy: -Antimicrobials below -See supportive care #Supportive Care: Growth Factor: Daily filgrastrim started Day +1 and will continue until ANC > 1500 x 2 c onsecutive days. Labs: Continue to check CBC daily Transfusion parameters: -Transfuse PRBCs for HCT <21% if asymptomatic OR <24% if symptomatic -Transfuse PPH for platelet count <10,000 sooner for s/s bleeding GVHD: No acute s/s of aGvHD Kyle Simpson phase 3 (IRB 00162) Acute GVHD Staging Complete on study visit [...] mL diarrhea/day 2 25-50% BSA 3.1-6 mg/dL 7826-7453 mL diarrhea/day 3 >50% BSA Generalized erythroderma 6.1-15 mg/dL >1500 mL diarrhea/day 4 Generalized erythroderma with bullus formation >15 mg/dL Severe abdominal pain with/without ileus Determine Differential Diagnosis: (Y/N): GVHD: N Drug Reaction: N Conditioning regimen toxicity: N Infection: N Other (describe): Engraftment Syndrome Y (Y/N): GVHD: N Drug Reaction:N Conditioning regimen toxicity:N TPN:N Infection:N Other (describe):N (Y/N): GVHD: N Drug Reaction:N Conditioning regimen toxicity:N TPN:N Infection:N Other (describe):N (Y/N): GVHD: N Drug Reaction:N Conditioning regimen toxicity:Y TPN:N Infection:N Other (describe):N Complete Values: BSA%: 15 Bullae (Y/N):N TBili: 1.0 24H Diarrhea Vol: 450 Severe abd pain (Y/N):N Ileus (Y/N):N Assign Stage: 1 0 0 0 Presumptive/ Confirmed Dx of aGVHD? (Y/N) N N N N Prophylaxis/Treatment: Prophylaxis with tacrolimus and MMF per [place] protocol - Tacrolimus started D-3 (goal 5-15) -Tacrolimus 0.5 mg PO qPM -Tacrolimus 1.0 mg PO qAM -MMF given at a dose of 15 mg/kg TID D-3 to D+60 #?Engraftment Syndrome: notable for weight gain, SOB requiring 1-2L NC, hyperbilirubinemia, and full body erythematous maculopapular rash. -Methylpred 0.5mg/kg/day, started 05/05 Staging: Skin: stage 0 Gut: stage 0 Liver: stage 0 Overall Grade: 0 HEENT: #Nosebleeds: started 04/30 with intermittent bleeding, controlled -Afrin PRN Pulmonary: Pretransplant PFTs completed on 03/10/19 showed FEV1 of 76% predicted, FVC of 87% predicted and adjusted DLCO of 77% predicted. #Hypoxemia: first noted 04/30 with O2 sats ~88-89%. Improved with lasix, but still requires daily 1-2L NC. -Lasix 20-40 mg IV PRN Cardiovascular: Pretransplant TTE completed on 03/10/2019 showed a LVEF of 64%. #Hx/o PICC line associated DVT:Noted on US 01/17/19 involved both right and left UE.Felicita gaines completed 3 months ofanticoagulationwith apixiban, end date 04/14/19. #HTN: SBP >180s s/p stem cell infusion product. Given Hydralazine x once with resolution. Resolved. #Re-evaluation of cardiac function: received cytoxan during conditioning. Increase oxygen r equirements as of 04/30. Now requiring 1-2L NC. (05/02) Repeat ECHO LVEF 65-70%. GI: #Mucositis: Improved -Continue mouth rinses -Special mouthwash PRN -Oxycodone 5-15 q4hrs PRN #NIRAJ: controlled -Zofran ODT 8 mg q12hrs -Antiemetics PRN #Abdominal pain/cramping: -Simethicone 80 mg TID PRN #Hemorrhoidal pain: -Nifedipine 0.3%-Lidocaine 1.5% TID PRN -Proctozone 2.5% rectal cream TID PRN -Sitz baths after stooling and at least 2-3 times daily #Diarrhea: (04/25) Clostridium difficile negative. (04/25) GI path panel negative. -Imodium PRN #Hyperbilirubinemia: total bili 1.4 on 05/05 with stable LFTs. No RUQ pain or tenderness to palpation. -Continue to monitor -Consider US of liver if progression or symptoms develop #Risk of gastritis: -Pepcid 20 mg BID #Risk for VOD: no e/o this currently -Ursodiol 500 mg PO BID /Renal: No acute issues Skin: #Rash: first noted 05/02, follicular rash localized to upper back with progression to diffu se, confluent maculopapular to trunk/back and all extremities with c/f hyperacute GvHD vs en graftment syndrome. -(05/04) Derm consult: -Rec vaseline to be applied daily with daily dressing change at bx site. Suture to be raegan esvin on 05/18. -Biopsy performed: sparse vacuolar dermatitis with c/f subtle GVHD -Triamcinolone 0.1% oint BID to affected areas, started 05/04 -Methylpred 0.5mg/kg/day (05/05- ) Psych: #Depression: Stable, continue SSRI. - Lexapro 20 mg PO daily MSK: #Myaglia/Arthralgia: -Claritin 10 mg PO daily, started 05/05 Infectious Disease: #Herpes Zoster, recent history: Noted in December, now s/p treatment with IV acyclovirfrom approx 01/10 through 01/16 then transitioned to valacyclovir 1g TID to complete an additional 7dcourse (extended for new lesions).She will continue on valacyclovir(rather than acyc lovir)through day +365 post transplant. -Valacyclovir 500mg BID #Non-neutropenic fever:Noted on 04/17. She was started on cefepime, however blood cul tures with NGTD x 72h and fevers since defervesced.She wasde-escalatedto levaquin pr ophylaxis on 04/20 (although not neutropenic), no fevers since de-escalation. -s/pCefepime (04/17 - 04/20) #NTP fever: noted 04/28 with bld cx positive for strep bacteremia (see below), UA: negative , CXR: negative for infection, trace pleural effusions. Still with intermittent fevering, c ultures being resent every 24 or greater with fevers. #Strep bacteremia: (04/28) NTP fever with bld cx +strep bacteremia. (04/29) ID consulted, r ec line remain in place unless pt becomes HD unstable, persistently bacteremic and/or sepsis arises. (04/29) Repeat bld cx NGTD. -Continue Cefepime (04/28- ) #Prophylaxis: Bacterial: see above Fungal: Posaconazole Viral: Valacyclovir CMV: Letermovir PCP: Pentamidine prior to discharge Toxo: Pt is toxo negative, no further testing required. #Routine infectious disease testing -CMV by PCR weekly, starting after day 0. Lab Results Component Value Date CMVQUANTPCR Undetected 04/30/2019 CMVQUANTPCR Undetected 04/22/2019 CMVQUANTPCR Undetected 04/16/2019 -Asp. Galactomannan weekly, starting after day 0. Lab Results Component Value Date GALACTO Negative 05/02/2019 Fluid/Nutrition/Lytes: #Nutrition: Low bacterial diet #Fluid: Assess daily in recent setting of FVO #Lytes: Continue to check chemistries daily. Replace per supportive care protocol. -Hypokalemia: KCl 40meq BID, increased from 20meq BID on 05/05 Disposition: Pending count recovery LACY Hogan [facility] [address] Mailcode: [id number] [place] [address] Cuate Massey MD - 05/06/2019 8:38 AM PSTHematologic Malignancies/Bone Marrow Transplant Inpatient Att ending Progress Note: 05/06/2019 I rounded today in conjunction with the Advanced Practice Provider. I saw the patient, revi ewed the history and relevant studies, and developed an assessment and plan. Please see the GISSEL documentation from today for details. Subjective: Improved rash and diarrhea. Hemorrhoids remain painful. Intermittent runny nose . Objective: Rash ~15% BSA, mild. Clear lungs. Repeat echo normal: EF 65-70% Stephenie Camarillo is a 53 y.o. female. Patients Hospital Problem List: Active Hospital Problems 1) *MDS (myelodysplastic syndrome) (HCC) 2) Acute deep vein thrombosis (DVT) of both upper extremities (HCC) Developed while hospitalized for shingles and had PICC in 3) Immunocompromised state due to drug therapy 4) Pancytopenia (HCC) engraftment syndrome Strep bacteremia The patient is Day 14, cord FuTBICy Plans today include: -GVHD prophylaxis: tacrolimus held with high level, mycophenolate -steroids 0.5 mg/kg/day 04/04- -ID prophylaxis -strep bacteremia: cefepime, cx neg since 05/03 -diuresis PRN -awaiting engraftment, G-CSF Reji Carrington MD [facility] [id number] Mailcode: [id number] [place] [address] Cameron Bonner MD - 05/05/2019 8:30 PM PST Date: 05/05/2019 [facility] Stephenie Camarillo is a 53 y.o. female Patient Active Problem List Diagnosis MDS (myelodysplastic syndrome) (HCC) Acute deep vein thrombosis (DVT) of both upper extremities (HCC) Stem cell transplant candidate Immunocompromised state due to drug therapy Pancytopenia (HCC) Bone Marrow Transplant Attending Inpatient Progress Note: I was present and rounded with the NPP Sanjay HOUSE today. The history (as documented today) i s reviewed; patient interviewed and personally examined by me. It is noted that patient rep orts: The patient feels that she had another episode of shortness of breath overnight. Responded to diuresis. Also has progressive rash. However, still with diarrhea and some hemorrhoida l discomfort. Overall though, patient is encouraged about her clinical progress I agree with all the NPP s findings of note. Significant findings include: BP 146/78 | Pulse 83 | Temp 36.7 C (98.1 F) | Resp 18 | Ht 1.591 m (5' 2.64") | Wt 70.4 kg (155 lb 3.3 oz) | SpO2 95% | BMI 27.81 kg/m | BSA 1.76 m Intake/Output 05/03 701 - 05/04 0705/04 - 05/05 0705/05 07 - 05/06 0700 P.O. 3337 2274 2137 I.V. 130 80 Blood 563 231 IV Piggyback Total Intake 4030 2585 2137 Urine (mL/kg/hr) 2725 (1.6) 3650 (2.1) 2250 (2.4) Other 405 1200 Total Output(mL/kg) 3130 (45.1) 4850 (66) 2250 (32) Net +900 -2265 -113 Stool 1 x Temp (24hrs), Av.9 C (98.4 F), Min:36.2 C (97.2 F), Max:37.5 C (99.5 F) ]Sitting in bed with nasal prong oxygen delivery. Oriented. Catheter site was intact without surrounding cellulitis. Oral pharynx was notable for impr shante epithelial surfaces throughout Lungs were notable for basilar crackles, today, left greater than right. Abdomen was geri ign. Patient was interactive with the examiner and did not appear anxious or angry Her skin was most notable for erythema. Involving the ears, face, upper chest, flanks and back as well as upper arms. Mostly macular erythema but some papular component. Also invol ving the upper legs. Now at over 50% of body surface area Lab/x-ray findings (as recorded in the NPP s note from today) requiring intervention incl ude: CBC with diff last 72 hours (or 3 results) Recent Labs 05/03/19 0124 05/04/195105/04/19 0745 05/05/19 0033 05/05/19 1007 WBC <0.10* -- <0.10* -- 0.11* -- HB 7.1* -- 7.4* -- 7.8* -- HCT 21.0* -- 21.9* -- 23.6* -- PLT 4* < > 1* 12* 6* 7* < > = values in this interval not displayed. Liver Tests: Last 72 hours (or 3 results) Recent Labs 05/03/1912205/04/195105/05/1932 AST 10 9 11 ALT 13 12 11 TBILI 0.8 1.0 1.4* AP 83 87 88 ALB 2.4* 2.4* 2.6* TP 6.0* 6.0* 6.5 Chemistries: Last 72 Hours (or 3 results): Recent Labs 05/03/1912205/04/195105/05/1932 NA 139 138 138 K 3.0* 3.2* 3.1* CL 108 108 103 BICARB 26 25 27 BUN 9 10 12 EGFRAFRICAN >60 >60 >60 CR 0.65 0.60 0.60 GLU 121* 111* 106* CA 7.8* 7.9* 7.9* MG 1.5* 1.8 1.2* PO4 2.7 2.6 2.0* Pathologist: Jose Peace MD Specimen: Rt arm, punch biopsy Final Pathologic Diagnosis SPARSE VACUOLAR DERMATITIS. NOTE: The changes are exceedingly subtle, and not definitive, although in this setting, ear ly changes of [id number] DISEASE/ENGRAFTMENT SYNDROME is most likely. Clinical correl ation is nevertheless recommended. Post platelet transfusion count demonstrated little rise I agree with the NPP s assessment and stated plan of care. This includes: Status post cord blood transplant, details shown- - FluCyTBI conditioned double cord transplant on the [place] trial, randomized to SOC - currently day+11 Day 0 = 04/22/19 - s/p infusion of 0.07 x 10^6 CD34+ cells / Kg Donor N/NMDP ID: [id number] - s/p infusion of 0.1 x 10^6 CD34+ cells / Kg Donor N/NMD ID:[id number] Continue tacrolimus and MMF Notably today on examination, patient has a more pronounced skin rash. It was first seen y esterday but is markedly increased; Now greater than 50% of the body surface area. Notably, the rash is occurring as we have the first evidence of white blood count recovery with a detectable white blood count CEA on CBC. This is most consistent with engraftment sy ndrome. Skin biopsy is consistent with the same. As such, we will begin methylprednisolone at 1 mg /kg today and continue this tomorrow in divided doses. Anticipate 7 to 10-day course with r elatively rapid taper if the patient responds On infectious disease assessment, the patient has had a streptococcal bacteremia; on cefepime for empiric antibiotics; no further low-grade fevers but no current chills. N o signs of sepsis. We will continue to be vigilant about search for source of infection and we will cover the broad-spectrum antimicrobials. Continues prophylaxis with Valacyclovir + letemovir (Cord transplant) and Posaconazole(Co rd transplant) Management of chemotherapy-induced nausea and vomiting PRN, Transfusion of red blood cells and platelets PRN cytopenias. Platelets again today for patients with severe coagulopathy due to thrombocytopenia. patie nt has evidence of alloimmunization; Electrolyte replacement PRN deficiencies; magnesium today for hypomagnesemia patient using low-dose nasal prong oxygen for comfort. Antimotility agents continue PRN. Diuresis continues PRN fluid overload Interventions for critical care performed or provided today include: none. Patient s primary diagnosis: Status post cord blood transplant for high-grade myelodyspla raúl Other diagnoses: Pancytopenia due to chemotherapy and radiation therapy; fever neutropenia; leukopenia; thrombocytopenia; anemia; neutropenia; coagulopathy; immune suppressed host; he morrhoids; mucositis; WHO grade 2 stomatitis; hypoxemia secondary to congestive heart failur e from diastolic dysfunction; chemotherapy-induced diarrhea; skin rash, likely related to en graftment syndrome Patient is recovering from aggressive chemoradiotherapy, Day 13. Continue present supportive care as outlined in our orders. See changes as indicated in ou r orders from today. Other: With double cord blood transplant, anticipate that engraftment may be delayed On GAMIDA phase III trial Sukhi Millan MD [facility] [id number] Mailcode: [id number] [place] [address] mDiane acosta PA - 05/05/2019 8:26 AM PST Daily GISSEL Note - Transplant Admit [facility] Attending: Sukhi Millan MD [facility] Physician: Sejal De La Torre MD PCP: LACY Perez Date of Admission: 04/15/2019 Hematologic Malignancy: MDS Conditioning regimen: FluCyTBI Date of transplant: 04/22/2019 Donor: CBU 1: [id number]/02 match, CBU 2: [id number]/02 match Reason for admission: Scheduled admission for myeloablative chemotherapy with subsequent st em cell infusion. ID: [id number] with MDS admitted for FluCyTBI UCB on [facility]. HX HTN, PICC associated thrombosis 24 hour events/plans: -MDS: admitted for FluCyTBI (on Gamida Trial), currently day +13 -Pancytopenia: standard transfusion parameters. Daily platelet transfusions have been requi red since 04/27 -Transfused 1 PPH today -(05/03) Platelet refractory w/u: PENDING -NTP fever: first noted 04/28 with intermittent fevers since. (05/03) Last fever. (04/28) B ld cx: +Strep bacteremia (see below). -Strep bacteremia: (04/28) NTP fever with bld cx +strep bacteremia. Repeat bld cx as of : NGTD. -(05/02) Per ID, cefepime to be continued x 7d (~05/09) or until no longer neutropenic (wh ichever is last) -Re-evaluation of cardiac function: received cytoxan during conditioning. Increase oxygen r equirements as of 04/30. Now requiring 1-2L NC. (05/02) Repeat ECHO LVEF 65-70%. -Hypoxemia: first noted 04/30 with O2 sats ~88-89%. Improved with lasix, but still requires daily 1-2L NC. -Lasix 20-40 mg IV PRN -Gave Lasix 40mg IV today -Diarrhea: (04/25) Clostridium difficile negative. (04/25) GI path panel negative. -Imodium PRN -Hemorrhoidal pain: -Nifedipine 0.3%-Lidocaine 1.5% TID PRN - pt prefers this medication vs. Proctozone -Proctozone 2.5% rectal cream TID PRN -Sitz baths after stooling and at least 2-3 times daily -Rash: first noted 05/02, follicular rash localized to upper back with progression to diffu se, confluent maculopapular with c/f hyperacute GvHD vs engraftment syndrome. -(05/04) Derm consult: -Rec vaseline to be applied daily with daily dressing change at bx site. Suture to be raegan esvin on 05/18. -Biopsy performed: PENDING -Triamcinolone 0.1% oint BID to affected areas, started 05/04 -?Engraftment Syndrome: notable for weight gain, SOB requiring 1-2L NC, hyperbilirubinemia, and diffuse non-pruritic erythematous maculopapular rash to trunk/back and extremeties -Methylpred 0.5mg/kg/day (05/05- ) -Lytes: standard electrolyte replacement. -Transfused potassium/magnesium/phos. -Hypokalemia: KCl 40meq BID Subjective: She was excited about her WBC appearing today. No acute complaints. Tolerating ensures/gatorade. No abdominal pain or cramping. No emesis. Liquid stools still. Using imod ium, as needed with help. Objective: Last Vitals: BP 133/59 | Pulse 84 | Temp 36.6 C (97.9 F) | Resp 20 | Ht 1.591 m (5' 2.64") | Wt 73.5 kg (162 lb 0.6 oz) | SpO2 93% | BMI 29.04 kg/m | BSA 1.8 m 24 Hour Vital Min/Max: Systolic (24hrs), Av , Min:131 , Max:159 Diastolic (24hrs), Av, Min:54, Max:71 Pulse Min: 79 Max: 93 Temp Min: 36.4 C (97.5 F) Max: 37.5 C (99.5 F) Resp Min: 20 Max: 28 SpO2 Min: 88 % Max: 98 % Intake/Output Summary (Last 24 hours) at 05/05/2019 08 Last data filed at 05/05/2019 0643 Gross per 24 hour Intake 2585 ml Output 4750 ml Net -2165 ml Physical Exam: General: This is a female in no acute distress sitting up in the bed. Pleasant a nd cooperative. HEENT: PERRL. Sclerae anicteric. Mucosa pink and moist. No ulcers or exudates. Skin: No diaphoresis, lesions noted. +Diffuse, nonpruritic erythematous maculopapular rash to trunk/back and extremities (>50% BSA) Chest: +Crackles to bilateral bases. No wheezing bilaterally. CV: RRR, no murmurs. Abdomen: S/NT/ND with NABS. No guarding, rigidity or rebound tenderness. No HSM appreciat ed. Extremities: Pulses strong and equal bilaterally. No c/c/+trace bilateral lower extremity edema. Neuro: Alert and oriented x 3. Grossly nonfocal exam. CVC: Central Line, DL - no erythema, edema, tenderness or drainage. Dressing clean, dry an d intact. Laboratory Results: Recent Labs 05/03/19 0123 05/04/19 0052 05/05/19 0033 NA 139 138 138 K 3.0* 3.2* 3.1* CL 108 108 103 BICARB 26 25 27 BUN 9 10 12 CR 0.65 0.60 0.60 GLU 121* 111* 106* CA 7.8* 7.9* 7.9* AST 10 9 11 ALT 13 12 11 AP 83 87 88 TBILI 0.8 1.0 1.4* TP 6.0* 6.0* 6.5 ALB 2.4* 2.4* 2.6* Recent Labs 04/21/19 0022 04/21/19 1655 04/22/19 0011 05/03/19 0124 05/04/19 0052 05/04/19 0745 05/05/19 0033 WBC 2.14* 1.65* 0.91* < > <0.10* -- <0.10* -- 0.11* RBC 3.56* 4.00 3.92* < > 2.54* -- 2.64* -- 2.85* HB 10.1* 11.3* 10.9* < > 7.1* -- 7.4* -- 7.8* HCT 31.6* 35.0* 34.5* < > 21.0* -- 21.9* -- 23.6* PLT 162 168 161 < > 4* < > 1* 12* 6* NEUTROPERC 94.0* 99.1* 96.5* -- -- -- -- -- -- LYMPHPERC 0.9* 0.9* 1.8* -- -- -- -- -- -- MONOPERC 0.0* 0.0* 0.0* -- -- -- -- -- -- BASOPERC 0.9 0.0 0.0 -- -- -- -- -- -- EOSPERC 0.5* 0.0* 1.7 -- -- -- -- -- -- < > = values in this interval not displayed. 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 Her hematogical history da jostin back to 2015 when she noted progressive fatigue. 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 She was working 6 days per week and thought she was working too hard. She left her job in August 2017 to give herself s ome time to feel better. She had been to various physicians in [place] for fatigue without answer s. In January 15, she developed fevers up to 104. She was tested for lyme disease, rheumatologi david conditions which were all negative. She began to notice that her counts were dropping. S he relocated to [facility] from [place] to live with her niece in 06/2018. She saw a local PA in [facility] 07/2018 Meredith Sanchez who did further testing. Labs on 10/07/18 showed normal chemistries, Bilirubin 1.4, hepatitis negative, ESR elevated at 174 with RA, RIOS C3/C4 nega tive. CBC showed WBC 2.4, Hb 10.8, Plt 166K, ANC 1529. She was referred to Dr. Sequeira ( medical oncology) on 10/29. Bone marrow biopsy was performed on 11/05 showing hypercellular mar row (70%) with 18% by morphology and 26% on flow. Mild erythroid hyperplasia and megakaryocy tic atypia. Blast immunophenotype was positive for CD33, CD45 dim, CD34, CD15, CD117, CD 11c , MPO. 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 Cytogenetics were normal. MDS and AML FISH panel was negative. NGS panel was negative for FLT3, NPM1, CEBPA, c-KIT, I DH1, IDH2, TP53. She started Vidaza locally on December 24 however developed a rash to the SQ injection and missed D3, dexamethasone was added for D4-D7. She lives in a travel trailer at her niece's house. Her niece has 5 dogs, 2 chicken, 3 cats and 1 ferret. She is applying fo r disability and not currently working. Her niece owns a PET SPA and she helps out as needed . She has no healthy siblings. One brother in [place] is an alcoholic. Older sister lives i n a mcfp due to vascular dementia and severe diabetes. Since my last visit with Mirian gilman, she was admitted to the hospital 01/14-01/26 [...] only option and she consen martha to anneida "[id number]: A Multicenter, Randomized, Phase III Registration Trial of Tra nsplantation of NiCord, Ex Vivo Expanded, UCB-derived, Stem and Progenitor Cells, vs. Unma nipulated UCB for Patients With Hematological Malignancies". She was randomized to SOC arm. C3 aza started on 02/21-end 03/01. Tolerated well without complications. MDS (myelodysplastic syndrome) ([facility]) 11/30/2018 Initial Diagnosis MDS (myelodysplastic syndrome) ([facility]) 12/02/2018 - 12/29/2018 Chemotherapy azaCITIDine (VIDAZA) injection 125 mg, 75 mg/m2 = 125 mg, subcutaneous, ONCE, 1 of 6 cycles 04/15/2019 - Chemotherapy fludarabine (FLUDARA) 42.5 mg in NaCl 0.9 % (NS) IV, 25 mg/m2 = 42.5 mg, intravenous, EVERY 24 HOURS, 0 of 1 cycle cyclophosphamide (CYTOXAN) 60 mg/kg = 4,000 mg in NaCl 0.9 % (NS) IV, 60 mg/kg = 4,000 mg, intravenous, EVERY 24 HOURS, 0 of 1 cycle Hospitalization History: Hematology: #Hematologic Malignancy: MDS Conditioning [...] 10 6 per kg Stem Cell Day: +13 #Pancytopenia likely r/t chemotherapy: -Antimicrobials below -See supportive care #Supportive Care: Growth Factor: Daily filgrastrim started Day +1 and will continue until ANC > 1500 x 2 c onsecutive days. Labs: Continue to check CBC daily Transfusion parameters: -Transfuse PRBCs for HCT <21% if asymptomatic OR <24% if symptomatic -Transfuse PPH for platelet count <10,000 sooner for s/s bleeding GVHD: no s/s acute GvHD noted Prophylaxis/Treatment: Prophylaxis with tacrolimus and MMF per [facility] protocol - Tacrolimus started D-3 (goal 5-15) -Tacrolimus 0.5 mg PO qPM -Tacrolimus 1.0 mg PO qAM -MMF given at a dose of 15 mg/kg TID D-3 to D+60 #?Engraftment Syndrome: notable for weight gain, SOB requiring 1-2L NC, hyperbilirubinemia, and full body erythematous maculopapular rash. -Methylpred 0.5mg/kg/day, started 05/05 Staging: Skin: stage 0 Gut: stage 0 Liver: stage 0 Overall Grade: 0 HEENT: #Nosebleeds: started 04/30 with intermittent bleeding, controlled -Afrin PRN Pulmonary: Pretransplant PFTs completed on 03/10/19 showed FEV1 of 76% predicted, FVC of 87% predicted and adjusted DLCO of 77% predicted. #Hypoxemia: first noted 04/30 with O2 sats ~88-89%. Improved with lasix, but still requires daily 1-2L NC. -Lasix 20-40 mg IV PRN Cardiovascular: Pretransplant TTE completed on 03/10/2019 showed a LVEF of 64%. #Hx/o PICC line associated DVT:Noted on US 01/17/19 involved both right and left UE. e completed 3 months ofanticoagulationwith apixiban, end date 04/14/19. #HTN: SBP >180s s/p stem cell infusion product. Given Hydralazine x once with resolution. Resolved. #Re-evaluation of cardiac function: received cytoxan during conditioning. Increase oxygen r equirements as of 04/30. Now requiring 1-2L NC. (05/02) Repeat ECHO LVEF 65-70%. GI: #Mucositis: Improved -Continue mouth rinses -Special mouthwash PRN -Oxycodone 5-15 q4hrs PRN #NIRAJ: controlled -Zofran ODT 8 mg q12hrs -Antiemetics PRN #Abdominal pain/cramping: -Simethicone 80 mg TID PRN #Hemorrhoidal pain: -Nifedipine 0.3%-Lidocaine 1.5% TID PRN -Proctozone 2.5% rectal cream TID PRN -Sitz baths after stooling and at least 2-3 times daily #Diarrhea: (04/25) Clostridium difficile negative. (04/25) GI path panel negative. -Imodium PRN #Hyperbilirubinemia: total bili 1.4 on 05/05 with stable LFTs. No RUQ pain or tenderness to palpation. -Continue to monitor -Consider US of liver if progression or symptoms develop #Risk of gastritis: -Pepcid 20 mg BID #Risk for VOD: no e/o this currently -Ursodiol 500 mg PO BID /Renal: No acute issues Skin: #Rash: first noted 05/02, follicular rash localized to upper back with progression to diffu se, confluent maculopapular to trunk/back and all extremities with c/f hyperacute GvHD vs en graftment syndrome. -(05/04) Derm consult: -Rec vaseline to be applied daily with daily dressing change at bx site. Suture to be raegan esvin on 05/18. -Biopsy performed: PENDING -Triamcinolone 0.1% oint BID to affected areas, started 05/04 -Methylpred 0.5mg/kg/day (05/05- ) Psych: #Depression: Stable, continue SSRI. - Lexapro 20 mg PO daily MSK: #Myaglia/Arthralgia: -Claritin 10 mg PO daily, started 05/05 Infectious Disease: #Herpes Zoster, recent history: Noted in December, now s/p treatment with IV acyclovirfrom approx 01/10 through 01/16 then transitioned to valacyclovir 1g TID to complete an additional 7dcourse (extended for new lesions).She will continue on valacyclovir(rather than acyc lovir)through day +365 post transplant. -Valacyclovir 500mg BID #Non-neutropenic fever:Noted on 04/17. She was started on cefepime, however blood cul tures with NGTD x 72h and fevers since defervesced.She wasde-escalatedto levaquin pr ophylaxis on 04/20 (although not neutropenic), no fevers since de-escalation. -s/pCefepime (04/17 - 04/20) #NTP fever: noted 04/28 with bld cx positive for strep bacteremia (see below), UA: negative , CXR: negative for infection, trace pleural effusions. Still with intermittent fevering, c ultures being resent every 24 or greater with fevers. #Strep bacteremia: (04/28) NTP fever with bld cx +strep bacteremia. (04/29) ID consulted, r ec line remain in place unless pt becomes HD unstable, persistently bacteremic and/or sepsis arises. (04/29) Repeat bld cx NGTD. -Continue Cefepime (04/28- ) #Prophylaxis: Bacterial: see above Fungal: Posaconazole Viral: Valacyclovir CMV: Letermovir PCP: Pentamidine prior to discharge Toxo: Pt is toxo negative, no further testing required. #Routine infectious disease testing -CMV by PCR weekly, starting after day 0. Lab Results Component Value Date CMVQUANTPCR Undetected 04/30/2019 CMVQUANTPCR Undetected 04/22/2019 CMVQUANTPCR Undetected 04/16/2019 -Asp. Galactomannan weekly, starting after day 0. Lab Results Component Value Date GALACTO Negative 05/02/2019 Fluid/Nutrition/Lytes: #Nutrition: Low bacterial diet #Fluid: Assess daily in recent setting of FVO #Lytes: Continue to check chemistries daily. Replace per supportive care protocol. -Hypokalemia: KCl 40meq BID, increased from 20meq BID on 05/05 Disposition: Pending count recovery LACY Hogan [place] [id number] Mail[address]: [id number] [place] [address] Mecca Brooks [facility] - 05/04/2019 11:15 AM PST Daily GISSEL Note - Transplant Admit Center for Hematologic Malignancies Attending: Sukhi Millan MD [facility] Physician: Sejal De La Torre MD PCP: LACY Perez Date of Admission: 04/15/2019 Hematologic Malignancy: MDS Conditioning regimen: FluCyTBI Date of transplant: 04/22/2019 Donor: CBU 1: [id number]/02 match, CBU 2: [id number]/02 match Reason for admission: Scheduled admission for myeloablative chemotherapy with subsequent st em cell infusion. ID: [id number] with MDS admitted for FluCyTBI UCB on Gamida. HX HTN, PICC associated thrombosis 24 hour events/plans: -MDS: admitted for FluCyTBI (on Gamida Trial), currently day +12 -Pancytopenia: standard transfusion parameters. -Transfused 1 PPH today, has required daily -post platelet counts x 2 show decline after transfusion, platelet refractory work up sent 05/03 -NTP fever: noted 04/28 with bld cx positive for strep bacteremia (see below), otherwise w/ u neg. No longer fevering. ID did evaluate, signed off now -Strep bacteremia: (04/28) NTP fever with bld cx +strep bacteremia. Repeat bld cx post anti biotic therapy- NGTD. -Continue Cefepime x 7 days and no longer neutropenic - -Re-evaluation of cardiac function: received cytoxan during conditioning. Increase oxygen requirements as of 04/30, now requiring 1L NC. Most likely d/t FVO but will re-assess LVEF. -Hypoxemia: noted 04/30 overnight w/ saturation of 88-89% most likely r/t FVO. Improved wit h lasix. Fluctuation of 1L NC required during the day. Increased to 2L for comfort, no drop in sats. But 89% on room air. -(05/01) Repeat TTE ordered: 65-70% LVEF- -Lasix 20-40 mg IV PRN- 40 mg given 05/04 -Diarrhea: (04/25) Clostridium difficile negative. (04/25) GI path panel negative. -Imodium PRN -Hemorrhoidal pain: Nifedipine 0.3%-Lidocaine 1.5% TID PRN, Proctozone 2.5% rectal cream TI D PRN -Sitz baths after stooling and at least 2-3 times daily -Rash- maculopapular rash noted to upper back, most c/w folliculitus at first. On 05/04 - c ontinues to progress, and now more diffuse, confluent and more maculopapular. No longer fol licular in appearance. Concern for hyperacute GvHD vs engraftment syndrome. ~35% BSA involv ed -derm consult -triamcinolone cream 0.1% after derm evaluates. -Lytes: standard electrolyte replacement. -hypoK - to be repleted, additional given with lasix doses. -Nutrition: Protein malnourishment. Slowly improving. Took in 70% of her breakfast and craft pplemented with ensure during day. Took in 2.3 L of oral fluids. Will follow Subjective: Did feel very short of breath and felt that the lasix helped (although pt is not net negative). No new issues. Objective: Last Vitals: BP 149/69 (BP Location: Right lower arm, Patient Position: Sitting) | Pulse 8 9 | Temp 37 C (98.6 F) (Oral) | Resp (!) 26 | Ht 1.591 m (5' 2.64") | Wt 73.5 kg (16 2 lb 0.6 oz) | SpO2 (!) 89% | BMI 29.04 kg/m | BSA 1.8 m 24 Hour Vital Min/Max: Systolic (24hrs), Av , Min:126 , Max:149 Diastolic (24hrs), Av, Min:51, Max:69 Pulse Min: 80 Max: 92 Temp Min: 36.4 C (97.5 F) Max: 37.2 C (99 F) Resp Min: 16 Max: 26 SpO2 Min: 89 % Max: 98 % Intake/Output Summary (Last 24 hours) at 05/04/2019 1115 Last data filed at 05/04/2019 0800 Gross per 24 hour Intake 2533 ml Output 2905 ml Net -372 ml Physical Exam: General: This is a female in no acute distress sitting up in the bed. Pleasant a nd cooperative. HEENT: PERRL. Sclerae anicteric. Mucosa pink and moist. +Ulcerations with mild erythema to posterior pharynx. +Blood blister to lower right lip Skin: No diaphoresis, rashes, lesions noted. Chest: +Crackles to bilateral bases. No wheezing bilaterally. CV: RRR, no murmurs. Abdomen: S/NT/ND with NABS. No guarding, rigidity or rebound tenderness. No HSM appreciat ed. Extremities: Pulses strong and equal bilaterally. No c/c/+trace bilateral lower extremity edema. Neuro: Alert and oriented x 3. Grossly nonfocal exam. CVC: Central Line, DL - no erythema, edema, tenderness or drainage. Dressing clean, dry an d intact. Laboratory Results: Recent Labs 05/02/19 0023 05/02/19 1550 05/03/19 0123 05/04/19 0052 NA 136 -- 139 138 K 2.9* 3.0* 3.0* 3.2* CL 103 -- 108 108 BICARB 26 -- 26 25 BUN 9 -- 9 10 CR 0.56* -- 0.65 0.60 GLU 102* -- 121* 111* CA 8.2* -- 7.8* 7.9* AST 13 -- 10 9 ALT 16 -- 13 12 AP 89 -- 83 87 TBILI 0.9 -- 0.8 1.0 TP 6.2* -- 6.0* 6.0* ALB 2.6* -- 2.4* 2.4* Recent Labs 04/21/19 0022 04/21/19 1655 04/22/19 0011 05/02/19 0023 05/03/19 0124 05/03/19 0643 05/04/19 0052 05/04/19 0745 WBC 2.14* 1.65* 0.91* < > <0.10* -- <0.10* -- <0.10* -- RBC 3.56* 4.00 3.92* < > 2.75* -- 2.54* -- 2.64* -- HB 10.1* 11.3* 10.9* < > 7.8* -- 7.1* -- 7.4* -- HCT 31.6* 35.0* 34.5* < > 23.0* -- 21.0* -- 21.9* -- PLT 162 168 161 < > 9* < > 4* 5* 1* 12* NEUTROPERC 94.0* 99.1* 96.5* -- -- -- -- -- -- -- LYMPHPERC 0.9* 0.9* 1.8* -- -- -- -- -- -- -- MONOPERC 0.0* 0.0* 0.0* -- -- -- -- -- -- -- BASOPERC 0.9 0.0 0.0 -- -- -- -- -- -- -- EOSPERC 0.5* 0.0* 1.7 -- -- -- -- -- -- -- < > = values in this interval not displayed. 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 Her hematogical history da jostin back to 2015 when she noted progressive fatigue. 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 She was working 6 days per week and thought she was working too hard. She left her job in August 2017 to give herself s ome time to feel better. She had been to various physicians in [place] for fatigue without answer s. In January 15, she developed fevers up to 104. She was tested for lyme disease, rheumatologi david conditions which were all negative. She began to notice that her counts were dropping. S he relocated to [facility] from [place] to live with her niece in 06/2018. She saw a local PA in [facility] 07/2018 Meredith Sanchez who did further testing. Labs on 10/07/18 showed normal chemistries, Bilirubin 1.4, hepatitis negative, ESR elevated at 174 with RA, RIOS C3/C4 nega tive. CBC showed WBC 2.4, Hb 10.8, Plt 166K, ANC 1529. She was referred to Dr. Sequeira ( medical oncology) on 10/29. Bone marrow biopsy was performed on 11/05 showing hypercellular mar row (70%) with 18% by morphology and 26% on flow. Mild erythroid hyperplasia and megakaryocy tic atypia. Blast immunophenotype was positive for CD33, CD45 dim, CD34, CD15, CD117, CD 11c , MPO. 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 Cytogenetics were normal. MDS and AML FISH panel was negative. NGS panel was negative for FLT3, NPM1, CEBPA, c-KIT, I DH1, IDH2, TP53. She started Vidaza locally on December 24 however developed a rash to the SQ injection and missed D3, dexamethasone was added for D4-D7. She lives in a travel trailer at her niece's house. Her niece has 5 dogs, 2 chicken, 3 cats and 1 ferret. She is applying fo r disability and not currently working. Her niece owns a PET SPA and she helps out as needed . She has no healthy siblings. One brother in [place] is an alcoholic. Older sister lives i n a mcfp due to vascular dementia and severe diabetes. Since my last visit with Mirian gilman, she was admitted to the hospital 01/14-01/26 [...] option and she consen martha to kyle "[id number]: A Multicenter, Randomized, Phase III Registration Trial of Tra nsplantation of NiCord, Ex Vivo Expanded, UCB-derived, Stem and Progenitor Cells, vs. Unma nipulated UCB for Patients With Hematological Malignancies". She was randomized to SOC arm. C3 aza started on 02/21-end 03/01. Tolerated well without complications. MDS (myelodysplastic syndrome) ([facility]) 11/30/2018 Initial Diagnosis MDS (myelodysplastic syndrome) ([facility]) 12/02/2018 - 12/29/2018 Chemotherapy azaCITIDine (VIDAZA) injection 125 mg, 75 mg/m2 = 125 mg, subcutaneous, ONCE, 1 of 6 cycles 04/15/2019 - Chemotherapy fludarabine (FLUDARA) 42.5 mg in NaCl 0.9 % (NS) IV, 25 mg/m2 = 42.5 mg, intravenous, EVERY 24 HOURS, 0 of 1 cycle cyclophosphamide (CYTOXAN) 60 mg/kg = 4,000 mg in NaCl 0.9 % (NS) IV, 60 mg/kg = 4,000 mg, intravenous, EVERY 24 HOURS, 0 of 1 cycle Hospitalization History: Hematology: #Hematologic Malignancy: MDS Conditioning [...] 10 6 per kg Stem Cell Day: +12 #Pancytopenia likely r/t chemotherapy: -Antimicrobials below -See supportive care #Supportive Care: Growth Factor: Daily filgrastrim started Day +1 and will continue until ANC > 1500 x 2 c onsecutive days. Labs: Continue to check CBC daily Transfusion parameters: -Transfuse PRBCs for HCT <21% if asymptomatic OR <24% if symptomatic -Transfuse PPH for platelet count <10,000 sooner for s/s bleeding GVHD: no s/s acute GvHD noted Prophylaxis/Treatment: Prophylaxis with tacrolimus and MMF per [facility] protocol - Tacrolimus started D-3 (goal 5-15) -Tacrolimus 0.5 mg PO qPM -Tacrolimus 1.0 mg PO qAM -MMF given at a dose of 15 mg/kg TID D-3 to D+60 Staging: Skin: stage 0 Gut: stage 0 Liver: stage 0 Overall Grade: 0 HEENT: #Nosebleeds: started 04/30 with intermittent bleeding, controlled -Afrin PRN Pulmonary: Pretransplant PFTs completed on 03/10/19 showed FEV1 of 76% predicted, FVC of 87% predicted and adjusted DLCO of 77% predicted. #Hypoxemia: noted 04/30 overnight w/ saturation of 88-89% most likely r/t FVO. Improved wit h lasix. Fluctuation of 1L NC required during the day. -Lasix 20-40 mg IV PRN Cardiovascular: Pretransplant TTE completed on 03/10/2019 showed a LVEF of 64%. #Hx/o PICC line associated DVT:Noted on US 01/17/19 involved both right and left UE.Sh e completed 3 months ofanticoagulationwith apixiban, end date 04/14/19. #HTN: SBP >180s s/p stem cell infusion product. Given Hydralazine x once with resolution. Resolved. #Re-evaluation of cardiac function: received cytoxan during conditioning. Increase oxygen r equirements as of 04/30, now requiring 1L NC. Most likely d/t FVO but will re-assess LVEF. -(05/01) Repeat TTE ordered: LVEF 65-70% GI: #Mucositis: -Continue mouth rinses -Special mouthwash PRN -Oxycodone 515 q4hrs PRN #NIRAJ: controlled -Zofran ODT 8 mg q12hrs -Antiemetics PRN #Abdominal pain/cramping: -Simethicone 80 mg TID PRN #Hemorrhoidal pain: -Nifedipine 0.3%-Lidocaine 1.5% TID PRN -Proctozone 2.5% rectal cream TID PRN -Sitz baths after stooling and at least 2-3 times daily #Diarrhea: (04/25) Clostridium difficile negative. (04/25) GI path panel negative. -Imodium PRN #Risk of gastritis: -Pepcid 20 mg BID #Risk for VOD: no e/o this currently -Ursodiol 500 mg PO BID /Renal: No acute issues Psych: #Depression: Stable, continue SSRI. - Lexapro 20 mg PO daily Infectious Disease: #Herpes Zoster, recent history: Noted in December, now s/p treatment with IV acyclovirfrom approx 01/10 through 01/16 then transitioned to valacyclovir 1g TID to complete an additional 7dcourse (extended for new lesions).She will continue on valacyclovir(rather than acyc lovir)through day +365 post transplant. -Valacyclovir 500mg BID #Non-neutropenic fever:Noted on 04/17. She was started on cefepime, however blood cul tures with NGTD x 72h and fevers since defervesced.She wasde-escalatedto levaquin pr ophylaxis on 04/20 (although not neutropenic), no fevers since de-escalation. -s/pCefepime (04/17 - 04/20) #NTP fever: noted 04/28 with bld cx positive for strep bacteremia (see below), UA: negative , CXR: negative for infection, trace pleural effusions. Still with intermittent fevering, c ultures being resent every 24 or greater with fevers. #Strep bacteremia: (04/28) NTP fever with bld cx +strep bacteremia. (04/29) ID consulted, r ec line remain in place unless pt becomes HD unstable, persistently bacteremic and/or sepsis arises. (04/29) Repeat bld cx NGTD. -Continue Cefepime (04/28- ) #Prophylaxis: Bacterial: see above Fungal: Posaconazole Viral: Valacyclovir CMV: Letermovir PCP: Pentamidine prior to discharge Toxo: Pt is toxo negative, no further testing required. #Routine infectious disease testing -CMV by PCR weekly, starting after day 0. Lab Results Component Value Date CMVQUANTPCR Undetected 04/30/2019 CMVQUANTPCR Undetected 04/22/2019 CMVQUANTPCR Undetected 04/16/2019 -Asp. Galactomannan weekly, starting after day 0. Lab Results Component Value Date GALACTO Negative 05/02/2019 Fluid/Nutrition/Lytes: #Nutrition: Low bacterial diet #protein malnourishment secondary to poor po intake: Continue to follow. Supplementing poo r po intake with ensure/boost. #Fluid: Assess daily in recent setting of FVO #Lytes: Continue to check chemistries daily. Replace per supportive care protocol. Disposition: Pending count recovery HEATHER Paredes [facility] [id number] Mailcode: [id number] [place] [id number] Sukhi Bonner MD - 05/04/2019 11:14 AM PST Date: 05/04/2019 [facility] Stephenie Camarillo is a 53 y.o. female Patient Active Problem List Diagnosis MDS (myelodysplastic syndrome) (HCC) Acute deep vein thrombosis (DVT) of both upper extremities (HCC) Stem cell transplant candidate Immunocompromised state due to drug therapy Pancytopenia (HCC) Bone Marrow Transplant Attending Inpatient Progress Note: I was present and rounded with the NPP Vinnie ROMERO today. The history (as documented today ) is reviewed; patient interviewed and personally examined by me. It is noted that patient reports: shortness of breath reported today and increased over the past 24 hours. Continue to use oxygen. Activity potentiates the dyspnea. No further fevers or chills. Rash increased I agree with all the NPP s findings of note. Significant findings include: BP 149/69 (B P Location: Right lower arm, Patient Position: Sitting) | Pulse 89 | Temp 37 C (98.6 F ) (Oral) | Resp (!) 26 | Ht 1.591 m (5' 2.64") | Wt 73.5 kg (162 lb 0.6 oz) | SpO2 (!) 8 9% | BMI 29.04 kg/m | BSA 1.8 m Intake/Output 05/02 701 - 05/03 0700 05/03 701 - 05/04 0705/04 07 - 05/05 0700 P.O. 2311 3337 I.V. 150 130 Blood 576 563 IV Piggyback 370 Total Intake 3407 4030 Urine (mL/kg/hr) 3250 (2) 2725 (1.6) 100 (0.3) Other 655 405 Total Output(mL/kg) 3905 (56.3) 3130 (45.1) 100 (1.4) Net -498 +900 -100 Stool 1 x 1 x Temp (24hrs), Av.8 C (98.3 F), Min:36.4 C (97.5 F), Max:37.2 C (99 F) ]Sitting in bed with nasal prong oxygen delivery. Oriented. Sinuses were nontender. Catheter site was intact without surrounding cellulitis. Oral phary nx was notable that the previously identified areas of mucosal breakdown or demonstrating he aling. No pseudomembranes seen. Actually improved epithelial surfaces throughout Lungs were notable for clearance of her previously identified basilar crackles. Abdomen was benign. Patient was interactive with the examiner and did not appear anxious or angry Her skin was most notable for erythema. Involving the ears, face, upper chest, flanks and back as well as upper arms. Mostly macular erythema but some papular component. Approximat e 35% to 38% body surface area Lab/x-ray findings (as recorded in the NPP s note from today) requiring intervention incl ude: CBC with diff last 72 hours (or 3 results) Recent Labs 05/02/19 0023 05/03/19 0124 05/03/19 0643 05/04/19 0052 05/04/19 0745 WBC <0.10* -- <0.10* -- <0.10* -- HB 7.8* -- 7.1* -- 7.4* -- HCT 23.0* -- 21.0* -- 21.9* -- PLT 9* < > 4* 5* 1* 12* < > = values in this interval not displayed. Liver Tests: Last 72 hours (or 3 results) Recent Labs 05/02/19 0023 05/03/1912205/04/1952 AST 13 10 9 ALT 16 13 12 TBILI 0.9 0.8 1.0 AP 89 83 87 ALB 2.6* 2.4* 2.4* TP 6.2* 6.0* 6.0* Chemistries: Last 72 Hours (or 3 results): Recent Labs 05/02/19 0023 05/02/19 1550 05/03/1912205/04/1952 NA 136 -- 139 138 K 2.9* 3.0* 3.0* 3.2* CL 103 -- 108 108 BICARB 26 -- 26 25 BUN 9 -- 9 10 EGFRAFRICAN >60 -- >60 >60 CR 0.56* -- 0.65 0.60 GLU 102* -- 121* 111* CA 8.2* -- 7.8* 7.9* MG 1.9 -- 1.5* 1.8 PO4 3.5 -- 2.7 2.6 Post platelet transfusion count demonstrates little rise I agree with the NPP s assessment and stated plan of care. This includes: Status post cord blood transplant, details shown- - FluCyTBI conditioned double cord transplant on the Gameda trial, randomized to SOC - currently day+10 Day 0 = 04/22/19 - s/p infusion of 0.07 x 10^6 CD34+ cells / Kg Donor N/NMDP ID: [id number] - s/p infusion of 0.1 x 10^6 CD34+ cells / Kg Donor MRN/NMDP ID:[id number] Continue tacrolimus and MMF Notably today on examination, patient has a more pronounced skin rash. It was first seen y esterday but is markedly increased in intensity and areas of confluence on the flanks bilate rally. Still less than 50% of the body surface area. Given the fact the patient's white bl ood count is less than 0.1, this may represent hyper acute GVHD, drug rash or engraftment sy ndrome. The patient does have clinical improvement of her mucosal surfaces suggesting that there may be some cellular recovery that is contributing to the wound healing. We will ask dermatology to evaluate the patient for their input and also to obtain biopsies to assess for GVHD versus engraftment syndrome; we will start topical steroid cream and if the patient exceeds over 50% of her body surface area, we will institute methylprednisolone therapy On infectious disease assessment, the patient has had a streptococcal bacteremia; on cefepime for empiric antibiotics; no further low-grade fevers but no current chills. N o signs of sepsis. We will continue to be vigilant about search for source of infection and we will cover the broad-spectrum antimicrobials. Continues prophylaxis with Valacyclovir + letemovir (Cord transplant) and Posaconazole(Co rd transplant) Management of chemotherapy-induced nausea and vomiting PRN, Transfusion of red blood cells and platelets PRN cytopenias. Platelets again today for patients with severe coagulopathy due to thrombocytopenia. javier nt has evidence of alloimmunization; Electrolyte replacement PRN deficiencies; potassium again today for hypokalemia Patient using low-dose nasal prong oxygen for comfort. Patient with repeat echocardiography obtained today that demonstrates ejection fraction of 67.5%. --> This to suggest diastolic dysfunction. This will require further diuresis today given her clinical presentation with dyspnea and mild oxygen desaturation Antimotility agents continue PRN. Diuresis continues PRN fluid overload Interventions for critical care performed or provided today include: none. 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 Continue present supportive care as outlined in our orders. See changes as indicated in ou r orders from today. Other: With double cord blood transplant, anticipate that engraftment may be delayed On GAMIDA phase III trial Sukhi Millan MD [facility] [id number] Mailcode: [address] [place] [phone] Sukhi Bonner MD - 05/03/2019 4:40 PM PST Date: 05/03/2019 [facility] Stephenie Camarillo is a 53 y.o. female Patient Active Problem List Diagnosis MDS (myelodysplastic syndrome) (HCC) Acute deep vein thrombosis (DVT) of both upper extremities (HCC) Stem cell transplant candidate Immunocompromised state due to drug therapy Pancytopenia (HCC) Bone Marrow Transplant Attending Inpatient Progress Note: I was present and rounded with the NPP Vinnie ROMEOR today. The history (as documented today ) is reviewed; patient interviewed and personally examined by me. It is noted that patient reports: Less shortness of breath reported today. Still able to tolerate oral intake without excess odynophagia. Still with ongoing fevers. No rigors. No other localizing symptoms. Still with some hemorrhoidal discomfort I agree with all the NPP s findings of note. Significant findings include: BP 132/66 (B P Location: Right upper arm, Patient Position: Sitting) | Pulse 92 | Temp 37.2 C (99 F ) (Oral) | Resp 24 | Ht 1.591 m (5' 2.64") | Wt 69.4 kg (153 lb) | SpO2 94% | BMI 27.42 kg/m | BSA 1.75 m Intake/Output 05/01 07 - 05/02 0700 05/02 07 - 05/03 0700 05/03 07 - 05/04 0700 P.O. 3304 2311 1137 I.V. 50 150 10 Blood 576 350 IV Piggyback 370 Total Intake 3354 3407 1497 Urine (mL/kg/hr) 2075 (1.2) 3250 (2) 575 (0.9) Other 725 655 0 Total Output(mL/kg) 2800 (38.5) 3905 (56.3) 575 (8.3) Net +554 -498 +922 Stool 1 x Temp (24hrs), Av.7 C (98.1 F), Min:36.2 C (97.2 F), Max:38.1 C (100.6 F) Sitting in bed with nasal prong oxygen delivery. Today she was able to speak in full sente nces without dyspnea; Oriented. Sinuses were nontender. Catheter site was intact without surrounding cellulitis. Oral phary nx was notable that the previously identified areas of mucosal breakdown or demonstrating he aling. No pseudomembranes seen. Lungs were notable for clearance of her previously identified basilar crackles. Abdomen was benign. Patient was interactive with the examiner and did not appear anxious or angry Lab/x-ray findings (as recorded in the NPP s note from today) requiring intervention incl ude: CBC with diff last 72 hours (or 3 results) Recent Labs 05/01/19 0015 05/02/19 0023 05/02/19 1051 05/03/19 0124 05/03/19 0643 WBC <0.10* <0.10* -- <0.10* -- HB 8.2* 7.8* -- 7.1* -- HCT 24.0* 23.0* -- 21.0* -- PLT 3* 9* 7* 4* 5* Liver Tests: Last 72 hours (or 3 results) Recent Labs 05/01/19 0015 05/02/19 0023 05/03/19 0123 AST 13 13 10 ALT 16 16 13 TBILI 1.0 0.9 0.8 AP 89 89 83 ALB 2.6* 2.6* 2.4* TP 6.0* 6.2* 6.0* Chemistries: Last 72 Hours (or 3 results): Recent Labs 05/01/19 0015 05/02/19 0023 05/02/19 1550 05/03/19 0123 NA 139 136 -- 139 K 3.1* 2.9* 3.0* 3.0* CL 103 103 -- 108 BICARB 29 26 -- 26 BUN 9 9 -- 9 EGFRAFRICAN >60 >60 -- >60 CR 0.56* 0.56* -- 0.65 GLU 91 102* -- 121* CA 7.8* 8.2* -- 7.8* MG 1.3* 1.9 -- 1.5* PO4 2.4 3.5 -- 2.7 I agree with the NPP s assessment and stated plan of care. This includes: Status post cord blood transplant, details shown- - FluCyTBI conditioned double cord transplant on the Gameda trial, randomized to SOC - currently day+10 Day 0 = 04/22/19 - s/p infusion of 0.07 x 10^6 CD34+ cells / Kg Donor MRN/NMDP ID: [id number] - s/p infusion of 0.1 x 10^6 CD34+ cells / Kg Donor MRN/NMDP ID:[id number] No evidence of clinically active GVHD. Continue tacrolimus and MMF On infectious disease assessment, patient already has had fever/ neutropenia episode with s treptococcal bacteremia; on cefepime for empiric antibiotics; still has low-grade fevers but no current chills. No signs of sepsis. We will continue to be vigilant about search for s ource of infection. Likely still related to GI tract Continues prophylaxis with Valacyclovir + letemovir (Cord transplant) and Posaconazole(Co rd transplant) Management of chemotherapy-induced nausea and vomiting PRN, Transfusion of red blood cells and platelets PRN cytopenias. Platelets again today for pat ients with severe coagulopathy due to thrombocytopenia However, we have checked post platelet counts. Patient has findings suggestive of alloimmu nization with very low platelet escalation after transfusion is completed Electrolyte replacement PRN deficiencies; potassium again today for hypokalemia and magnesi um for hypomagnesemia Patient using low-dose nasal prong oxygen for comfort. Better pulmonary mechanics noted to day. Patient with repeat echocardiography obtained today that demonstrates ejection fraction of 67.5%. Patient has now developed diarrhea. Antimotility agents continue. We have a low threshold to consider TPN for this patient. However, oral intake has increas ed without excess GI losses. Diuresis continues PRN fluid overload Interventions for critical care performed or provided today include: none. 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 Continue present supportive care as outlined in our orders. See changes as indicated in ou r orders from today. Other: With double cord blood transplant, anticipate that engraftment may be delayed On GAMIDA phase III trial Sukhi Millan MD [facility] [id number] Mailcode: [address] [place] [phone] eandroMecca nova HEATHER - 05/03/2019 2:30 PM PST Daily GISSEL Note - Transplant Admit [facility] Attending: Sukhi Millan MD [facility] Physician: Sejal De La Torre MD PCP: LACY Perez Date of Admission: 04/15/2019 Hematologic Malignancy: MDS Conditioning regimen: FluCyTBI Date of transplant: 04/22/2019 Donor: CBU 1: [id number] match, CBU 2: [id number]/02 match Reason for admission: Scheduled admission for myeloablative chemotherapy with subsequent st em cell infusion. ID: [id number] with MDS admitted for FluCyTBI UCB on Gamida. HX HTN, PICC associated thrombosis 24 hour events/plans: -MDS: admitted for FluCyTBI (on Gamida Trial), currently day +11 -Pancytopenia: standard transfusion parameters. -Transfused 1 PPH today, has required daily -post platelet counts x 2 show decline after transfusion, will initiate platelet refractor y work up -NTP fever: noted 04/28 with bld cx positive for strep bacteremia (see below), otherwise w/ u neg. Continues to intermittently fever. -ID following -Strep bacteremia: (04/28) NTP fever with bld cx +strep bacteremia. (04/29) ID consulted, r ec line remain in place unless pt becomes HD unstable, persistently bacteremic and/or sepsis arises. (04/29) Repeat bld cx NGTD. -Continue Cefepime x 7 days and no longer neutropenic -if pt able to dc before 7 days of therapy- notify ID for oral agent (they signed off 05/02) - Urinary discomfort/frequency- urinalysis/culture sent 05/02. No infection and symptoms re solved -Re-evaluation of cardiac function: received cytoxan during conditioning. Increase oxygen r equirements as of 04/30, now requiring 1L NC. Most likely d/t FVO but will re-assess LVEF. -(05/01) Repeat TTE ordered: 65-70% LVEF -Hypoxemia: noted 04/30 overnight w/ saturation of 88-89% most likely r/t FVO. Improved wit h lasix. Fluctuation of 1L NC required during the day. -Lasix 20-40 mg IV PRN- none given 05/03 -Diarrhea: (04/25) Clostridium difficile negative. (04/25) GI path panel negative. -Imodium PRN -Hemorrhoidal pain: -Nifedipine 0.3%-Lidocaine 1.5% TID PRN -Proctozone 2.5% rectal cream TID PRN -Sitz baths after stooling and at least 2-3 times daily -Rash- maculopapular rash noted to upper back, most c/w folliculitus -cleocin gel 1% BID -Lytes: standard electrolyte replacement. -hypoK - to be repleted -Nutrition: Protein malnourishment. Minimal to no solid foods, but was able to eat some br eakfast this am, and taking in at least 2-3 boosts/ensures daily. Took in 2.3 L of oral flu ids. Will follow Subjective: Sitting up in bed, just finished eating some breakfast and was happy that she was able to tolerate solid foods. Objective: Last Vitals: BP 126/56 (BP Location: Right upper arm, Patient Position: Lying on back) | P ulse 84 | Temp 36.4 C (97.5 F) (Oral) | Resp 16 | Ht 1.591 m (5' 2.64") | Wt 69.4 kg (153 lb) | SpO2 98% | BMI 27.42 kg/m | BSA 1.75 m 24 Hour Vital Min/Max: Systolic (24hrs), Av , Min:112 , Max:134 Diastolic (24hrs), Av, Min:39, Max:66 Pulse Min: 74 Max: 95 Temp Min: 36.2 C (97.2 F) Max: 38.1 C (100.6 F) Resp Min: 16 Max: 18 SpO2 Min: 91 % Max: 98 % Intake/Output Summary (Last 24 hours) at 05/03/2019 1430 Last data filed at 05/03/2019 1200 Gross per 24 hour Intake 4354 ml Output 3075 ml Net 1279 ml Physical Exam: General: This is a female in no acute distress sitting up in the bed. Pleasant a nd cooperative. HEENT: PERRL. Sclerae anicteric. Mucosa pink and moist. +Ulcerations with mild erythema to posterior pharynx. +Blood blister to lower right lip Skin: No diaphoresis, rashes, lesions noted. Chest: +Crackles to bilateral bases. No wheezing bilaterally. CV: RRR, no murmurs. Abdomen: S/NT/ND with NABS. No guarding, rigidity or rebound tenderness. No HSM appreciat ed. Extremities: Pulses strong and equal bilaterally. No c/c/+trace bilateral lower extremity edema. Neuro: Alert and oriented x 3. Grossly nonfocal exam. CVC: Central Line, DL - no erythema, edema, tenderness or drainage. Dressing clean, dry an d intact. Laboratory Results: Recent Labs 05/01/19 0015 05/02/19 0023 05/02/19 1550 05/03/19 0123 NA 139 136 -- 139 K 3.1* 2.9* 3.0* 3.0* CL 103 103 -- 108 BICARB 29 26 -- 26 BUN 9 9 -- 9 CR 0.56* 0.56* -- 0.65 GLU 91 102* -- 121* CA 7.8* 8.2* -- 7.8* AST 13 13 -- 10 ALT 16 16 -- 13 AP 89 89 -- 83 TBILI 1.0 0.9 -- 0.8 TP 6.0* 6.2* -- 6.0* ALB 2.6* 2.6* -- 2.4* Recent Labs 04/21/19 0022 04/21/19 1655 04/22/19 0011 05/01/19 0015 05/02/19 0023 05/02/19 1051 05/03/19 0124 05/03/19 0643 WBC 2.14* 1.65* 0.91* < > <0.10* <0.10* -- <0.10* -- RBC 3.56* 4.00 3.92* < > 2.90* 2.75* -- 2.54* -- HB 10.1* 11.3* 10.9* < > 8.2* 7.8* -- 7.1* -- HCT 31.6* 35.0* 34.5* < > 24.0* 23.0* -- 21.0* -- PLT 162 168 161 < > 3* 9* 7* 4* 5* NEUTROPERC 94.0* 99.1* 96.5* -- -- -- -- -- -- LYMPHPERC 0.9* 0.9* 1.8* -- -- -- -- -- -- MONOPERC 0.0* 0.0* 0.0* -- -- -- -- -- -- BASOPERC 0.9 0.0 0.0 -- -- -- -- -- -- EOSPERC 0.5* 0.0* 1.7 -- -- -- -- -- -- < > = values in this interval not displayed. 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 Her hematogical history da jostin back to 2015 when she noted progressive fatigue. 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 She was working 6 days per week and thought she was working too hard. She left her job in August 2017 to give herself s ome time to feel better. She had been to various physicians in [place] for fatigue without answer s. In January 15, she developed fevers up to 104. She was tested for lyme disease, rheumatologi david conditions which were all negative. She began to notice that her counts were dropping. S he relocated to [facility] from [place] to live with her niece in 06/2018. She saw a local PA in [facility] 07/2018 Meredith Sanchez who did further testing. Labs on 10/07/18 showed normal chemistries, Bilirubin 1.4, hepatitis negative, ESR elevated at 174 with RA, RIOS C3/C4 nega tive. CBC showed WBC 2.4, Hb 10.8, Plt 166K, ANC 1529. She was referred to Dr. Sequeira ( medical oncology) on 10/29. Bone marrow biopsy was performed on 11/05 showing hypercellular mar row (70%) with 18% by morphology and 26% on flow. Mild erythroid hyperplasia and megakaryocy tic atypia. Blast immunophenotype was positive for CD33, CD45 dim, CD34, CD15, CD117, CD 11c , MPO. 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 Cytogenetics were normal. MDS and AML FISH panel was negative. NGS panel was negative for FLT3, NPM1, CEBPA, c-KIT, I DH1, IDH2, TP53. She started Vidaza locally on December 24 however developed a rash to the SQ injection and missed D3, dexamethasone was added for D4-D7. She lives in a travel trailer at her niece's house. Her niece has 5 dogs, 2 chicken, 3 cats and 1 ferret. She is applying fo r disability and not currently working. Her niece owns a [employer] and she helps out as needed . She has no healthy siblings. One brother in [place] is an alcoholic. Older sister lives i n a mcfp due to vascular dementia and severe diabetes. Since my last visit with Mirian gilman, she was admitted to the hospital 01/14-01/26 [...] only option and she consen martha to anneida "[id number]: A Multicenter, Randomized, Phase III Registration Trial of Tra nsplantation of NiCord, Ex Vivo Expanded, UCB-derived, Stem and Progenitor Cells, vs. Unma nipulated UCB for Patients With Hematological Malignancies". She was randomized to SOC arm. C3 aza started on 02/21-end 03/01. Tolerated well without complications. MDS (myelodysplastic syndrome) (HCC) 11/30/2018 Initial Diagnosis MDS (myelodysplastic syndrome) (HCC) 12/02/2018 - 12/29/2018 Chemotherapy azaCITIDine (VIDAZA) injection 125 mg, 75 mg/m2 = 125 mg, subcutaneous, ONCE, 1 of 6 cycles 04/15/2019 - Chemotherapy fludarabine (FLUDARA) 42.5 mg in NaCl 0.9 % (NS) IV, 25 mg/m2 = 42.5 mg, intravenous, EVERY 24 HOURS, 0 of 1 cycle cyclophosphamide (CYTOXAN) 60 mg/kg = 4,000 mg in NaCl 0.9 % (NS) IV, 60 mg/kg = 4,000 mg, intravenous, EVERY 24 HOURS, 0 of 1 cycle Hospitalization History: Hematology: #Hematologic Malignancy: MDS Conditioning [...] 10 6 per kg Stem Cell Day: +11 #Pancytopenia likely r/t chemotherapy: -Antimicrobials below -See supportive care #Supportive Care: Growth Factor: Daily filgrastrim started Day +1 and will continue until ANC > 1500 x 2 c onsecutive days. Labs: Continue to check CBC daily Transfusion parameters: -Transfuse PRBCs for HCT <21% if asymptomatic OR <24% if symptomatic -Transfuse PPH for platelet count <10,000 sooner for s/s bleeding GVHD: no s/s acute GvHD noted Prophylaxis/Treatment: Prophylaxis with tacrolimus and MMF per [place] protocol - Tacrolimus started D-3 (goal 5-15) -Tacrolimus 0.5 mg PO qPM -Tacrolimus 1.0 mg PO qAM -MMF given at a dose of 15 mg/kg TID D-3 to D+60 Staging: Skin: stage 0 Gut: stage 0 Liver: stage 0 Overall Grade: 0 HEENT: #Nosebleeds: started 04/30 with intermittent bleeding, controlled -Afrin PRN Pulmonary: Pretransplant PFTs completed on 03/10/19 showed FEV1 of 76% predicted, FVC of 87% predicted and adjusted DLCO of 77% predicted. #Hypoxemia: noted 04/30 overnight w/ saturation of 88-89% most likely r/t FVO. Improved wit h lasix. Fluctuation of 1L NC required during the day. -Lasix 20-40 mg IV PRN Cardiovascular: Pretransplant TTE completed on 03/10/2019 showed a LVEF of 64%. #Hx/o PICC line associated DVT:Noted on US 01/17/19 involved both right and left UE.Sh e completed 3 months ofanticoagulationwith apixiban, end date 04/14/19. #HTN: SBP >180s s/p stem cell infusion product. Given Hydralazine x once with resolution. Resolved. #Re-evaluation of cardiac function: received cytoxan during conditioning. Increase oxygen r equirements as of 04/30, now requiring 1L NC. Most likely d/t FVO but will re-assess LVEF. -(05/01) Repeat TTE ordered: LVEF 65-70% GI: #Mucositis: -Continue mouth rinses -Special mouthwash PRN -Oxycodone 515 q4hrs PRN #NIRAJ: controlled -Zofran ODT 8 mg q12hrs -Antiemetics PRN #Abdominal pain/cramping: -Simethicone 80 mg TID PRN #Hemorrhoidal pain: -Nifedipine 0.3%-Lidocaine 1.5% TID PRN -Proctozone 2.5% rectal cream TID PRN -Sitz baths after stooling and at least 2-3 times daily #Diarrhea: (04/25) Clostridium difficile negative. (04/25) GI path panel negative. -Imodium PRN #Risk of gastritis: -Pepcid 20 mg BID #Risk for VOD: no e/o this currently -Ursodiol 500 mg PO BID /Renal: No acute issues Psych: #Depression: Stable, continue SSRI. - Lexapro 20 mg PO daily Infectious Disease: #Herpes Zoster, recent history: Noted in December, now s/p treatment with IV acyclovirfrom approx 01/10 through 01/16 then transitioned to valacyclovir 1g TID to complete an additional 7dcourse (extended for new lesions).She will continue on valacyclovir(rather than acyc lovir)through day +365 post transplant. -Valacyclovir 500mg BID #Non-neutropenic fever:Noted on 04/17. She was started on cefepime, however blood cul tures with NGTD x 72h and fevers since defervesced.She wasde-escalatedto levaquin pr ophylaxis on 04/20 (although not neutropenic), no fevers since de-escalation. -s/pCefepime (04/17 - 04/20) #NTP fever: noted 04/28 with bld cx positive for strep bacteremia (see below), UA: negative , CXR: negative for infection, trace pleural effusions. Still with intermittent fevering, c ultures being resent every 24 or greater with fevers. #Strep bacteremia: (04/28) NTP fever with bld cx +strep bacteremia. (04/29) ID consulted, r ec line remain in place unless pt becomes HD unstable, persistently bacteremic and/or sepsis arises. (04/29) Repeat bld cx NGTD. -Continue Cefepime (04/28- ) #Prophylaxis: Bacterial: see above Fungal: Posaconazole Viral: Valacyclovir CMV: Letermovir PCP: Pentamidine prior to discharge Toxo: Pt is toxo negative, no further testing required. #Routine infectious disease testing -CMV by PCR weekly, starting after day 0. Lab Results Component Value Date CMVQUANTPCR Undetected 04/30/2019 CMVQUANTPCR Undetected 04/22/2019 CMVQUANTPCR Undetected 04/16/2019 -Asp. Galactomannan weekly, starting after day 0. Lab Results Component Value Date GALACTO Negative 05/02/2019 Fluid/Nutrition/Lytes: #Nutrition: Low bacterial diet #protein malnourishment secondary to poor po intake: Continue to follow. Supplementing poo r po intake with ensure/boost. #Fluid: Assess daily in recent setting of FVO #Lytes: Continue to check chemistries daily. Replace per supportive care protocol. Disposition: Pending count recovery HEATHER Paredes [facility] [id number] Mailcode: [id number] [place] [phone] Sukhi Bonner MD - 05/02/2019 5:37 PM PST Date: 05/02/2019 [facility] Stephenie Camarillo is a 53 y.o. female Patient Active Problem List Diagnosis MDS (myelodysplastic syndrome) (HCC) Acute deep vein thrombosis (DVT) of both upper extremities (HCC) Stem cell transplant candidate Immunocompromised state due to drug therapy Pancytopenia (HCC) Bone Marrow Transplant Attending Inpatient Progress Note: I was present and rounded with the NPP Vinnie ROMERO today. The history (as documented today ) is reviewed; patient interviewed and personally examined by me. It is noted that patient reports: Still with significant shortness of breath. Still using oxygen with low level desaturation recorded, prominently at night. Still with fevers but no rigors or chills. Developing diarrhea without crampy abdominal pa in I agree with all the NPP s findings of note. Significant findings include: BP 124/54 (B P Location: Right upper arm, Patient Position: Lying left side) | Pulse 86 | Temp 37.5 C (99.5 F) (Oral) | Resp 16 | Ht 1.591 m (5' 2.64") | Wt 72.7 kg (160 lb 4.4 oz) | SpO2 92% | BMI 28.72 kg/m | BSA 1.79 m Intake/Output 04/30 07 - 05/01 0700 05/01 07 - 05/02 0700 05/02 0701 - 05/03 0700 P.O. 2617 3304 474 I.V. 125 50 40 Blood 917 273 IV Piggyback 100 Total Intake 3759 3354 787 Urine (mL/kg/hr) 4050 (2.2) 2075 (1.2) 1850 (2.4) Other 630 725 105 Total Output(mL/kg) 4680 (61.9) 2800 (38.5) 1955 (26.9) Net -921 +554 -1168 Stool 1 x Temp (24hrs), Av.1 C (98.7 F), Min:36.3 C (97.3 F), Max:38.4 C (101.1 F) Sitting in bed with nasal prong oxygen delivery. Notably, she has trouble finishing a sent ence without taking a breath. Oriented. Sinuses were nontender. Catheter site was intact without surrounding cellulitis. Oral phary nx was notable that there are findings of ongoing mucositis, WHO grade 2; some erythema in the hypopharynx. Lungs were notable for bilateral basilar crackles. Abdomen was benign. P atient was interactive with the examiner and did not appear anxious or angry Lab/x-ray findings (as recorded in the NPP s note from today) requiring intervention incl ude: CBC with diff last 72 hours (or 3 results) Recent Labs 04/30/19 0048 05/01/19 0015 05/02/19 0023 05/02/19 1051 WBC <0.10* <0.10* <0.10* -- HB 6.2* 8.2* 7.8* -- HCT 18.3* 24.0* 23.0* -- PLT 5* 3* 9* 7* Liver Tests: Last 72 hours (or 3 results) Recent Labs 04/30/19 1336 05/01/19 0015 05/02/19 0023 AST 16 13 13 ALT 15 16 16 TBILI 1.0 1.0 0.9 AP 96 89 89 ALB 2.6* 2.6* 2.6* TP 6.3* 6.0* 6.2* Chemistries: Last 72 Hours (or 3 results): Recent Labs 04/30/19 0050 04/30/19 1336 05/01/19 0015 05/02/19 0023 05/02/19 1550 NA 140 138 139 136 -- K 3.0* 3.2* 3.1* 2.9* 3.0* CL 106 103 103 103 -- BICARB 27 31 29 26 -- BUN 6 8 9 9 -- EGFRAFRICAN >60 >60 >60 >60 -- CR 0.49* 0.56* 0.56* 0.56* -- GLU 92 95 91 102* -- CA 7.9* 7.9* 7.8* 8.2* -- MG 1.9 -- 1.3* 1.9 -- PO4 2.6 -- 2.4 3.5 -- I agree with the NPP s assessment and stated plan of care. This includes: Status post cord blood transplant, details shown- - FluCyTBI conditioned double cord transplant on the [facility] trial, randomized to SOC - currently day+10 Day 0 = 04/22/19 - s/p infusion of 0.07 x 10^6 CD34+ cells / Kg Donor MRN/NMDP ID: [id number] - s/p infusion of 0.1 x 10^6 CD34+ cells / Kg Donor MRN/NMDP ID:[id number] No evidence of clinically active GVHD. Continue tacrolimus and MMF On infectious disease assessment, patient already has had fever/ neutropenia episode with s treptococcal bacteremia; on cefepime for empiric antibiotics; still has low-grade fevers but no current chills. No signs of sepsis. Continues prophylaxis with Valacyclovir + letemovir (Cord transplant) Posaconazole(Cord transplant) Management of chemotherapy-induced nausea and vomiting PRN, continue ondansetron as needed Transfusion of red blood cells and platelets PRN cytopenias. Platelets again today for pat ients severe coagulopathy due to thrombocytopenia Electrolyte replacement PRN deficiencies; potassium today for hypokalemia and magnesium for hypomagnesemia Patient does require oxygen. Still with episodes of fluid overload. Patient had normal ej ection fraction prior to transplant. Patient with repeat echocardiography obtained today that demonstrates ejection fraction of 67.5%. Patient has now developed diarrhea. Antimotility agents continue. Patient is still being held for maintenance IV fluids given her fluid status. However, if the diarrhea escalates, she will require IV hydration, possibly TPN We discussed this with the patient that if this is the case, we will need likely to use con stant diuresis. Again today we will use further furosemide diuresis to facilitate fluid management Interventions for critical care performed or provided today include: none. 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 Continue present supportive care as outlined in our orders. See changes as indicated in ou r orders from today. Other: With double cord blood transplant, anticipate that engraftment may be delayed On [facility] phase III trial Sukhi Millan MD [facility] [id number] Mailcode: [address] [place] [id number] ecca [place] ACNP - 05/02/2019 3:32 PM PST Daily GISSEL Note - Transplant Admit [facility] Attending: Sukhi Millan MD [facility] Physician: Sejal De La Torre MD PCP: LACY Perez Date of Admission: 04/15/2019 Hematologic Malignancy: MDS Conditioning regimen: FluCyTBI Date of transplant: 04/22/2019 Donor: CBU 1: [id number]/02 match, CBU 2: [id number]/02 match Reason for admission: Scheduled admission for myeloablative chemotherapy with subsequent st em cell infusion. ID: [id number] with MDS admitted for FluCyTBI UCB on [facility]. HX HTN, PICC associated thrombosis 24 hour events/plans: -MDS: admitted for FluCyTBI (on [facility] Trial), currently day +10 -Pancytopenia: standard transfusion parameters. -Transfused 1 PPH today, has required daily -post platelet counts x 4 checks to evaluate for refractory state -NTP fever: noted 04/28 with bld cx positive for strep bacteremia (see below), UA: negative , CXR: negative for infection, trace pleural effusions. Additional fever on 04/30, work-up s ent. -(04/29, 04/30) Bld cx: NGTD -Strep bacteremia: (04/28) NTP fever with bld cx +strep bacteremia. (04/29) ID consulted, r ec line remain in place unless pt becomes HD unstable, persistently bacteremic and/or sepsis arises. (04/29) Repeat bld cx NGTD. -Continue Cefepime - Urinary discomfort/frequency- urinalysis/culture sent 05/02. -Re-evaluation of cardiac function: received cytoxan during conditioning. Increase oxygen r equirements as of 04/30, now requiring 1L NC. Most likely d/t FVO but will re-assess LVEF. -(05/01) Repeat TTE ordered: 65-70% LVEF -Hypoxemia: noted 04/30 overnight w/ saturation of 88-89% most likely r/t FVO. Improved wit h lasix. Fluctuation of 1L NC required during the day. -Lasix 20-40 mg IV PRN -Nosebleeds: started 04/30 -Afrin PRN -Diarrhea: (04/25) Clostridium difficile negative. (04/25) GI path panel negative. -Imodium PRN -Hemorrhoidal pain: -Nifedipine 0.3%-Lidocaine 1.5% TID PRN -Proctozone 2.5% rectal cream TID PRN -Sitz baths after stooling and at least 2-3 times daily -Rash- maculopapular rash noted to upper back, most c/w folliculitus -cleocin gel 1% BID -Lytes: standard electrolyte replacement. -hypoK - to be repleted Subjective: Siting up in bed- was not aware she had a rash, no pruritis Objective: Last Vitals: BP 129/55 (BP Location: Right upper arm, Patient Position: Lying left side) | Pulse 81 | Temp 36.6 C (97.9 F) (Oral) | Resp 16 | Ht 1.591 m (5' 2.64") | Wt 72.7 kg (160 lb 4.4 oz) | SpO2 94% | BMI 28.72 kg/m | BSA 1.79 m 24 Hour Vital Min/Max: Systolic (24hrs), Av , Min:113 , Max:138 Diastolic (24hrs), Av, Min:55, Max:79 Pulse Min: 78 Max: 89 Temp Min: 36.3 C (97.3 F) Max: 38.4 C (101.1 F) Resp Min: 16 Max: 18 SpO2 Min: 88 % Max: 96 % Intake/Output Summary (Last 24 hours) at 05/02/2019 1532 Last data filed at 05/02/2019 1300 Gross per 24 hour Intake 2734 ml Output 3230 ml Net -496 ml Physical Exam: General: This is a female in no acute distress sitting up in the bed. Pleasant a nd cooperative. HEENT: PERRL. Sclerae anicteric. Mucosa pink and moist. +Ulcerations with mild erythema to posterior pharynx. +Blood blister to lower right lip Skin: No diaphoresis, rashes, lesions noted. Chest: +Crackles to bilateral bases. No wheezing bilaterally. CV: RRR, no murmurs. Abdomen: S/NT/ND with NABS. No guarding, rigidity or rebound tenderness. No HSM appreciat ed. Extremities: Pulses strong and equal bilaterally. No c/c/+trace bilateral lower extremity edema. Neuro: Alert and oriented x 3. Grossly nonfocal exam. CVC: Central Line, DL - no erythema, edema, tenderness or drainage. Dressing clean, dry an d intact. Laboratory Results: Recent Labs 04/30/19 1336 05/01/19 0015 05/02/19 0023 NA 138 139 136 K 3.2* 3.1* 2.9* CL 103 103 103 BICARB 31 29 26 BUN 8 9 9 CR 0.56* 0.56* 0.56* GLU 95 91 102* CA 7.9* 7.8* 8.2* AST 16 13 13 ALT 15 16 16 AP 96 89 89 TBILI 1.0 1.0 0.9 TP 6.3* 6.0* 6.2* ALB 2.6* 2.6* 2.6* Recent Labs 04/21/19 0022 04/21/19 1655 04/22/19 0011 04/30/19 0048 05/01/19 0015 05/02/19 0023 05/02/19 1051 WBC 2.14* 1.65* 0.91* < > <0.10* <0.10* <0.10* -- RBC 3.56* 4.00 3.92* < > 2.19* 2.90* 2.75* -- HB 10.1* 11.3* 10.9* < > 6.2* 8.2* 7.8* -- HCT 31.6* 35.0* 34.5* < > 18.3* 24.0* 23.0* -- PLT 162 168 161 < > 5* 3* 9* 7* NEUTROPERC 94.0* 99.1* 96.5* -- -- -- -- -- LYMPHPERC 0.9* 0.9* 1.8* -- -- -- -- -- MONOPERC 0.0* 0.0* 0.0* -- -- -- -- -- BASOPERC 0.9 0.0 0.0 -- -- -- -- -- EOSPERC 0.5* 0.0* 1.7 -- -- -- -- -- < > = values in this interval not displayed. 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 Her hematogical history da jostin back to 2015 when she noted progressive fatigue. 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 She was working 6 days per week and thought she was working too hard. She left her job in August 2017 to give herself s ome time to feel better. She had been to various physicians in [place] for fatigue without answer s. In January 15, she developed fevers up to 104. She was tested for lyme disease, rheumatologi david conditions which were all negative. She began to notice that her counts were dropping. S he relocated to [facility] from [place] to live with her niece in 06/2018. She saw a local PA in [facility] 07/2018 Meredith Sanchez who did further testing. Labs on 10/07/18 showed normal chemistries, Bilirubin 1.4, hepatitis negative, ESR elevated at 174 with RA, RIOS C3/C4 nega tive. CBC showed WBC 2.4, Hb 10.8, Plt 166K, ANC 1529. She was referred to Dr. Sequeira ( medical oncology) on 10/29. Bone marrow biopsy was performed on 11/05 showing hypercellular mar row (70%) with 18% by morphology and 26% on flow. Mild erythroid hyperplasia and megakaryocy tic atypia. Blast immunophenotype was positive for CD33, CD45 dim, CD34, CD15, CD117, CD 11c , MPO. 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 Cytogenetics were normal. MDS and AML FISH panel was negative. NGS panel was negative for FLT3, NPM1, CEBPA, c-KIT, I DH1, IDH2, TP53. She started Vidaza locally on December 24 however developed a rash to the SQ injection and missed D3, dexamethasone was added for D4-D7. She lives in a travel trailer at her niece's house. Her niece has 5 dogs, 2 chicken, 3 cats and 1 ferret. She is applying fo r disability and not currently working. Her niece owns a [employer] and she helps out as needed . She has no healthy siblings. One brother in [place] is an alcoholic. Older sister lives i n a mcfp due to vascular dementia and severe diabetes. Since my last visit with Mirian gilman, she was admitted to the hospital 01/14-01/26 [...] option and she consen martha to kyle "[id number]: A Multicenter, Randomized, Phase III Registration Trial of Tra nsplantation of NiCord, Ex Vivo Expanded, UCB-derived, Stem and Progenitor Cells, vs. Unma nipulated UCB for Patients With Hematological Malignancies". She was randomized to SOC arm. C3 aza started on 02/21-end 03/01. Tolerated well without complications. MDS (myelodysplastic syndrome) (HCC) 11/30/2018 Initial Diagnosis MDS (myelodysplastic syndrome) (HCC) 12/02/2018 - 12/29/2018 Chemotherapy azaCITIDine (VIDAZA) injection 125 mg, 75 mg/m2 = 125 mg, subcutaneous, ONCE, 1 of 6 cycles 04/15/2019 - Chemotherapy fludarabine (FLUDARA) 42.5 mg in NaCl 0.9 % (NS) IV, 25 mg/m2 = 42.5 mg, intravenous, EVERY 24 HOURS, 0 of 1 cycle cyclophosphamide (CYTOXAN) 60 mg/kg = 4,000 mg in NaCl 0.9 % (NS) IV, 60 mg/kg = 4,000 mg, intravenous, EVERY 24 HOURS, 0 of 1 cycle Hospitalization History: Hematology: #Hematologic Malignancy: MDS Conditioning [...] 10 6 per kg Stem Cell Day: +10 #Pancytopenia likely r/t chemotherapy: -Antimicrobials below -See supportive care #Supportive Care: Growth Factor: Daily filgrastrim started Day +1 and will continue until ANC > 1500 x 2 c onsecutive days. Labs: Continue to check CBC daily Transfusion parameters: -Transfuse PRBCs for HCT <21% if asymptomatic OR <24% if symptomatic -Transfuse PPH for platelet count <10,000 sooner for s/s bleeding GVHD: no s/s acute GvHD noted Prophylaxis/Treatment: Prophylaxis with tacrolimus and MMF per [facility] protocol - Tacrolimus started D-3 (goal 5-15) -Tacrolimus 0.5 mg PO qPM -Tacrolimus 1.0 mg PO qAM -MMF given at a dose of 15 mg/kg TID D-3 to D+60 Staging: Skin: stage 0 Gut: stage 0 Liver: stage 0 Overall Grade: 0 HEENT: #Nosebleeds: started 04/30 with intermittent bleeding, controlled -Afrin PRN Pulmonary: Pretransplant PFTs completed on 03/10/19 showed FEV1 of 76% predicted, FVC of 87% predicted and adjusted DLCO of 77% predicted. #Hypoxemia: noted 04/30 overnight w/ saturation of 88-89% most likely r/t FVO. Improved wit h lasix. Fluctuation of 1L NC required during the day. -Lasix 20-40 mg IV PRN Cardiovascular: Pretransplant TTE completed on 03/10/2019 showed a LVEF of 64%. #Hx/o PICC line associated DVT:Noted on US 01/17/19 involved both right and left UE.Felicita gaines completed 3 months ofanticoagulationwith apixiban, end date 04/14/19. #HTN: SBP >180s s/p stem cell infusion product. Given Hydralazine x once with resolution. Resolved. #Re-evaluation of cardiac function: received cytoxan during conditioning. Increase oxygen r equirements as of 04/30, now requiring 1L NC. Most likely d/t FVO but will re-assess LVEF. -(05/01) Repeat TTE ordered: LVEF 65-70% GI: #Mucositis: -Continue mouth rinses -Special mouthwash PRN -Oxycodone 515 q4hrs PRN #NIRAJ: controlled -Zofran ODT 8 mg q12hrs -Antiemetics PRN #Abdominal pain/cramping: -Simethicone 80 mg TID PRN #Hemorrhoidal pain: -Nifedipine 0.3%-Lidocaine 1.5% TID PRN -Proctozone 2.5% rectal cream TID PRN -Sitz baths after stooling and at least 2-3 times daily #Diarrhea: (04/25) Clostridium difficile negative. (04/25) GI path panel negative. -Imodium PRN #Risk of gastritis: -Pepcid 20 mg BID #Risk for VOD: no e/o this currently -Ursodiol 500 mg PO BID /Renal: No acute issues Psych: #Depression: Stable, continue SSRI. - Lexapro 20 mg PO daily Infectious Disease: #Herpes Zoster, recent history: Noted in December, now s/p treatment with IV acyclovirfrom approx 01/10 through 01/16 then transitioned to valacyclovir 1g TID to complete an additional 7dcourse (extended for new lesions).She will continue on valacyclovir(rathern than acy clovir)through day +365 post transplant. -Valacyclovir 500mg BID #Non-neutropenic fever:Noted on 04/17. She was started on cefepime, however blood cul tures with NGTD x 72h and fevers since defervesced.She wasde-escalatedto levaquin pr ophylaxis on 04/20 (although not neutropenic), no fevers since de-escalation. -s/pCefepime (04/17 - 04/20) #NTP fever: noted 04/28 with bld cx positive for strep bacteremia (see below), UA: negative , CXR: negative for infection, trace pleural effusions. Additional fever on 04/30, work-up s ent. -(04/29, 04/30) Bld cx: NGTD #Strep bacteremia: (04/28) NTP fever with bld cx +strep bacteremia. (04/29) ID consulted, r ec line remain in place unless pt becomes HD unstable, persistently bacteremic and/or sepsis arises. (04/29) Repeat bld cx NGTD. -Continue Cefepime #Prophylaxis: Bacterial: Cefepime Fungal: Posaconazole Viral: Valacyclovir CMV: Letermovir PCP: Pentamidine prior to discharge Toxo: Pt is toxo negative, no further testing required. #Routine infectious disease testing -CMV by PCR weekly, starting after day 0. Lab Results Component Value Date CMVQUANTPCR Undetected 04/30/2019 CMVQUANTPCR Undetected 04/22/2019 CMVQUANTPCR Undetected 04/16/2019 -Asp. Galactomannan weekly, starting after day 0. Lab Results Component Value Date GALACTO Negative 05/02/2019 Fluid/Nutrition/Lytes: #Nutrition: Low bacterial diet #Fluid: Assess daily in recent setting of FVO #Lytes: Continue to check chemistries daily. Replace per supportive care protocol. Disposition: Pending count recovery HEATHER Paredes [facility] [id number] Mailcode: [id number] [place] [id number] aurang Bliss - 05/02 9:20 AM PSTTransthoracic echocardiogram completed. Final report to follow. Diane Davenport PA - 08/2018 12:45 PM PST Daily GISSEL Note - [facility] Ad[facility] Attending: Sukhi Millan MD [facility] Physician: Sejal De La Torre MD PCP: LACY Perez Date of Admission: 04/15/2019 Hematologic Malignancy: MDS Conditioning regimen: FluCyTBI Date of transplant: 04/22/2019 Donor: CBU 1: [id number]/02 match, CBU 2: [id number]/02 match Reason for admission: Scheduled admission for myeloablative chemotherapy with subsequent st em cell infusion. ID: [id number] with MDS admitted for FluCyTBI UCB on [facility]. HX HTN, PICC associated thrombosis 24 hour events/plans: -MDS: admitted for FluCyTBI (on Gamida Trial), currently day +9 -Pancytopenia: standard transfusion parameters. -Transfused 1 PPH today -NTP fever: noted 04/28 with bld cx positive for strep bacteremia (see below), UA: negative , CXR: negative for infection, trace pleural effusions. Additional fever on 04/30, work-up s ent. -(04/29, 04/30) Bld cx: NGTD/PENDING -Strep bacteremia: (04/28) NTP fever with bld cx +strep bacteremia. (04/29) ID consulted, r ec line remain in place unless pt becomes HD unstable, persistently bacteremic and/or sepsis arises. (04/29) Repeat bld cx NGTD. -Continue Cefepime -Re-evaluation of cardiac function: received cytoxan during conditioning. Increase oxygen r equirements as of 04/30, now requiring 1L NC. Most likely d/t FVO but will re-assess LVEF. -(05/01) Repeat TTE ordered: PENDING -Hypoxemia: noted 04/30 overnight w/ saturation of 88-89% most likely r/t FVO. Improved wit h lasix. Fluctuation of 1L NC required during the day. -Lasix 20-40 mg IV PRN -Nosebleeds: started 04/30 -Afrin PRN -Diarrhea: (04/25) Clostridium difficile negative. (04/25) GI path panel negative. -Imodium PRN -Hemorrhoidal pain: -Nifedipine 0.3%-Lidocaine 1.5% TID PRN -Proctozone 2.5% rectal cream TID PRN -Sitz baths after stooling and at least 2-3 times daily -Lytes: standard electrolyte replacement. -Transfused potassium and magnesium today Subjective: She is doing okay. Breathing better after lasix yesterday. Consuming shakes, e nsures. Tolerating well but not interested in solid food at this time. Mild generalized abdo abdoul cramping with intermittent diarrhea to loose stools. Ambulating on own. Does feel SOB during ambulation requiring nasal cannula. Using oxygen during these episodes and for comfor t reasons. Objective: Last Vitals: BP 145/71 (BP Location: Left upper arm, Patient Position: Lying on back) | Pu lse 82 | Temp 36.5 C (97.7 F) (Oral) | Resp 18 | Ht 1.591 m (5' 2.64") | Wt 75.6 kg (166 lb 10.7 oz) | SpO2 96% | BMI 29.87 kg/m | BSA 1.83 m 24 Hour Vital Min/Max: Systolic (24hrs), Av , Min:120 , Max:150 Diastolic (24hrs), Av, Min:57, Max:88 Pulse Min: 72 Max: 86 Temp Min: 36.3 C (97.3 F) Max: 38 C (100.4 F) Resp Min: 16 Max: 18 SpO2 Min: 91 % Max: 97 % Intake/Output Summary (Last 24 hours) at 05/01/2019 1245 Last data filed at 05/01/2019 1206 Gross per 24 hour Intake 3544 ml Output 4055 ml Net -511 ml Physical Exam: General: This is a female in no acute distress sitting up in the bed. Pleasant a nd cooperative. HEENT: PERRL. Sclerae anicteric. Mucosa pink and moist. +Ulcerations with mild erythema to posterior pharynx. +Blood blister to lower right lip Skin: No diaphoresis, rashes, lesions noted. Chest: +Crackles to bilateral bases. No wheezing bilaterally. CV: RRR, no murmurs. Abdomen: S/NT/ND with NABS. No guarding, rigidity or rebound tenderness. No HSM appreciat ed. Extremities: Pulses strong and equal bilaterally. No c/c/+trace bilateral lower extremity edema. Neuro: Alert and oriented x 3. Grossly nonfocal exam. CVC: Central Line, DL - no erythema, edema, tenderness or drainage. Dressing clean, dry an d intact. Laboratory Results: Recent Labs 04/30/19 0050 04/30/19 1336 05/01/19 0015 NA 140 138 139 K 3.0* 3.2* 3.1* CL 106 103 103 BICARB 27 31 29 BUN 6 8 9 CR 0.49* 0.56* 0.56* GLU 92 95 91 CA 7.9* 7.9* 7.8* AST 14 16 13 ALT 15 15 16 AP 85 96 89 TBILI 0.6 1.0 1.0 TP 5.5* 6.3* 6.0* ALB 2.5* 2.6* 2.6* Recent Labs 04/21/19 0022 04/21/19 1655 04/22/19 0011 04/29/19 0000 04/30/19 0048 05/01/19 0015 WBC 2.14* 1.65* 0.91* < > <0.10* <0.10* <0.10* RBC 3.56* 4.00 3.92* < > 2.59* 2.19* 2.90* HB 10.1* 11.3* 10.9* < > 7.2* 6.2* 8.2* HCT 31.6* 35.0* 34.5* < > 21.4* 18.3* 24.0* PLT 162 168 161 < > 8* 5* 3* NEUTROPERC 94.0* 99.1* 96.5* -- -- -- -- LYMPHPERC 0.9* 0.9* 1.8* -- -- -- -- MONOPERC 0.0* 0.0* 0.0* -- -- -- -- BASOPERC 0.9 0.0 0.0 -- -- -- -- EOSPERC 0.5* 0.0* 1.7 -- -- -- -- < > = values in this interval not displayed. 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 Her hematogical history da jostin back to 2015 when she noted progressive fatigue. 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 She was working 6 days per week and thought she was working too hard. She left her job in August 2017 to give herself s ome time to feel better. She had been to various physicians in [place] for fatigue without answer s. In January 15, she developed fevers up to 104. She was tested for lyme disease, rheumatologi david conditions which were all negative. She began to notice that her counts were dropping. S he relocated to [facility] from [place] to live with her niece in 06/2018. She saw a local PA in [facility] 07/2018 Meredith Sanchez who did further testing. Labs on 10/07/18 showed normal chemistries, Bilirubin 1.4, hepatitis negative, ESR elevated at 174 with RA, RIOS C3/C4 nega tive. CBC showed WBC 2.4, Hb 10.8, Plt 166K, ANC 1529. She was referred to Dr. Sequeira ( medical oncology) on 10/29. Bone marrow biopsy was performed on 11/05 showing hypercellular mar row (70%) with 18% by morphology and 26% on flow. Mild erythroid hyperplasia and megakaryocy tic atypia. Blast immunophenotype was positive for CD33, CD45 dim, CD34, CD15, CD117, CD 11c , MPO. 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 Cytogenetics were normal. MDS and AML FISH panel was negative. NGS panel was negative for FLT3, NPM1, CEBPA, c-KIT, I DH1, IDH2, TP53. She started Vidaza locally on December 24 however developed a rash to the SQ injection and missed D3, dexamethasone was added for D4-D7. She lives in a travel trailer at her niece's house. Her niece has 5 dogs, 2 chicken, 3 cats and 1 ferret. She is applying fo r disability and not currently working. Her niece owns a PET SPA and she helps out as needed . She has no healthy siblings. One brother in [place] is an alcoholic. Older sister lives i n a mcfp due to vascular dementia and severe diabetes. Since my last visit with Mirian gilman, she was admitted to the hospital 01/14-01/26 [...] option and she consen martha to kyle "[id number]: A Multicenter, Randomized, Phase III Registration Trial of Tra nsplantation of NiCord, Ex Vivo Expanded, UCB-derived, Stem and Progenitor Cells, vs. Unma nipulated UCB for Patients With Hematological Malignancies". She was randomized to SOC arm. C3 aza started on 02/21-end 03/01. Tolerated well without complications. MDS (myelodysplastic syndrome) ([facility]) 11/30/2018 Initial Diagnosis MDS (myelodysplastic syndrome) ([facility]) 12/02/2018 - 12/29/2018 Chemotherapy azaCITIDine (VIDAZA) injection 125 mg, 75 mg/m2 = 125 mg, subcutaneous, ONCE, 1 of 6 cycles 04/15/2019 - Chemotherapy fludarabine (FLUDARA) 42.5 mg in NaCl 0.9 % (NS) IV, 25 mg/m2 = 42.5 mg, intravenous, EVERY 24 HOURS, 0 of 1 cycle cyclophosphamide (CYTOXAN) 60 mg/kg = 4,000 mg in NaCl 0.9 % (NS) IV, 60 mg/kg = 4,000 mg, intravenous, EVERY 24 HOURS, 0 of 1 cycle Hospitalization History: Hematology: #Hematologic Malignancy: MDS Conditioning [...] 10 6 per kg Stem Cell Day: +9 #Pancytopenia likely r/t chemotherapy: -Antimicrobials below -See supportive care #Supportive Care: Growth Factor: Daily filgrastrim started Day +1 and will continue until ANC > 1500 x 2 c onsecutive days. Labs: Continue to check CBC daily Transfusion parameters: -Transfuse PRBCs for HCT <21% if asymptomatic OR <24% if symptomatic -Transfuse PPH for platelet count <10,000 sooner for s/s bleeding GVHD: no s/s acute GvHD noted Prophylaxis/Treatment: Prophylaxis with tacrolimus and MMF per [place] protocol - Tacrolimus started D-3 (goal 5-15) -Tacrolimus 0.5 mg PO qPM -Tacrolimus 1.0 mg PO qAM -MMF given at a dose of 15 mg/kg TID D-3 to D+60 Staging: Skin: stage 0 Gut: stage 0 Liver: stage 0 Overall Grade: 0 HEENT: #Nosebleeds: started 04/30 with intermittent bleeding, controlled -Afrin PRN Pulmonary: Pretransplant PFTs completed on 03/10/19 showed FEV1 of 76% predicted, FVC of 87% predicted and adjusted DLCO of 77% predicted. #Hypoxemia: noted 04/30 overnight w/ saturation of 88-89% most likely r/t FVO. Improved wit h lasix. Fluctuation of 1L NC required during the day. -Lasix 20-40 mg IV PRN Cardiovascular: Pretransplant TTE completed on 03/10/2019 showed a LVEF of 64%. #Hx/o PICC line associated DVT:Noted on US 01/17/19 involved both right and left UE.Sh e completed 3 months ofanticoagulationwith apixiban, end date 04/14/19. #HTN: SBP >180s s/p stem cell infusion product. Given Hydralazine x once with resolution. Resolved. #Re-evaluation of cardiac function: received cytoxan during conditioning. Increase oxygen r equirements as of 04/30, now requiring 1L NC. Most likely d/t FVO but will re-assess LVEF. -(05/01) Repeat TTE ordered: PENDING GI: #Mucositis: -Continue mouth rinses -Special mouthwash PRN -Oxycodone 515 q4hrs PRN #NIRAJ: controlled -Zofran ODT 8 mg q12hrs -Antiemetics PRN #Abdominal pain/cramping: -Simethicone 80 mg TID PRN #Hemorrhoidal pain: -Nifedipine 0.3%-Lidocaine 1.5% TID PRN -Proctozone 2.5% rectal cream TID PRN -Sitz baths after stooling and at least 2-3 times daily #Diarrhea: (04/25) Clostridium difficile negative. (04/25) GI path panel negative. -Imodium PRN #Risk of gastritis: -Pepcid 20 mg BID #Risk for VOD: no e/o this currently -Ursodiol 500 mg PO BID /Renal: No acute issues Psych: #Depression: Stable, continue SSRI. - Lexapro 20 mg PO daily Infectious Disease: #Herpes Zoster, recent history: Noted in December, now s/p treatment with IV acyclovirfrom approx 01/10 through 01/16 then transitioned to valacyclovir 1g TID to complete an additional 7dcourse (extended for new lesions).She will continue on valacyclovir(rathern than acy clovir)through day +365 post transplant. -Valacyclovir 500mg BID #Non-neutropenic fever:Noted on 04/17. She was started on cefepime, however blood cul tures with NGTD x 72h and fevers since defervesced.She wasde-escalatedto levaquin pr ophylaxis on 04/20 (although not neutropenic), no fevers since de-escalation. -s/pCefepime (04/17 - 04/20) #NTP fever: noted 04/28 with bld cx positive for strep bacteremia (see below), UA: negative , CXR: negative for infection, trace pleural effusions. Additional fever on 04/30, work-up s ent. -(04/29, 04/30) Bld cx: NGTD/PENDING #Strep bacteremia: (04/28) NTP fever with bld cx +strep bacteremia. (04/29) ID consulted, r ec line remain in place unless pt becomes HD unstable, persistently bacteremic and/or sepsis arises. (04/29) Repeat bld cx NGTD. -Continue Cefepime #Prophylaxis: Bacterial: Cefepime Fungal: Posaconazole Viral: Valacyclovir CMV: Letermovir PCP: Pentamidine prior to discharge Toxo: Pt is toxo negative, no further testing required. #Routine infectious disease testing -CMV by PCR weekly, starting after day 0. Lab Results Component Value Date CMVQUANTPCR Undetected 04/22/2019 CMVQUANTPCR Undetected 04/16/2019 -Asp. Galactomannan weekly, starting after day 0. Lab Results Component Value Date GALACTO Negative 04/25/2019 Fluid/Nutrition/Lytes: #Nutrition: Low bacterial diet #Fluid: Assess daily in recent setting of FVO #Lytes: Continue to check chemistries daily. Replace per supportive care protocol. Disposition: Pending count recovery LACY Hogan [facility] [id number] Mailcode: [id number] [place] [phone] Sukhi Bonner MD - 05/01/2019 10:52 AM PST Date: 05/01/2019 [facility] Stephenie Camarillo is a 53 y.o. female Patient Active Problem List Diagnosis MDS (myelodysplastic syndrome) (HCC) Acute deep vein thrombosis (DVT) of both upper extremities (HCC) Stem cell transplant candidate Immunocompromised state due to drug therapy Pancytopenia (HCC) Bone Marrow Transplant Attending Inpatient Progress Note: I was present and rounded with the NPP Sanjay HOUSE today. The history (as documented today) i s reviewed; patient interviewed and personally examined by me. It is noted that patient rep orts: Still with low-grade fevers, no localizing findings No chills or rigors. Does not complain of oral discomfort; less complaints of hemorrhoida l pain. Major issue still is some shortness of breath, particularly at night. Oxygen for c omfort and to raise saturation levels I agree with all the NPP s findings of note. Significant findings include: BP 120/69 (B P Location: Left upper arm, Patient Position: Lying on back) | Pulse 85 | Temp 36.5 C (9 7.7 F) (Oral) | Resp 18 | Ht 1.591 m (5' 2.64") | Wt 75.6 kg (166 lb 10.7 oz) | SpO2 9 3% | BMI 29.87 kg/m | BSA 1.83 m Intake/Output 04/29 701 - 04/30 0700 04/30 701 - 05/01 0705/01 07 - 05/02 0700 P.O. 3600 2617 I.V. 125 125 Blood 945 917 IV Piggyback 100 Total Intake 4670 3759 Urine (mL/kg/hr) 4090 (2.3) 4050 (2.2) 225 (0.8) Other 205 630 150 Total Output(mL/kg) 4295 (57.9) 4680 (61.9) 375 (5) Net +375 -921 -375 Stool 3 x Temp (24hrs), Av C (98.6 F), Min:36.3 C (97.3 F), Max:38 C (100.4 F) Sitting in bed with nasal prong oxygen delivery. Comfortable. Oriented. Sinuses were nontender. Catheter site was intact without surrounding cellulitis. Oral phary nx was notable that at the angle of the jaw, near the tonsillar pillars bilaterally, evidenc e of ulceration persists. Some erythema in the hypopharynx. Lungs were notable for bilater al basilar crackles. Abdomen was benign. Patient was interactive with the examiner and did not appear anxious or angry Lab/x-ray findings (as recorded in the NPP s note from today) requiring intervention incl ude: CBC with diff last 72 hours (or 3 results) Recent Labs 04/29/19 0000 04/30/19 0048 05/01/19 0015 WBC <0.10* <0.10* <0.10* HB 7.2* 6.2* 8.2* HCT 21.4* 18.3* 24.0* PLT 8* 5* 3* Liver Tests: Last 72 hours (or 3 results) Recent Labs 04/30/19 0050 04/30/19 1336 05/01/19 0015 AST 14 16 13 ALT 15 15 16 TBILI 0.6 1.0 1.0 AP 85 96 89 ALB 2.5* 2.6* 2.6* TP 5.5* 6.3* 6.0* Chemistries: Last 72 Hours (or 3 results): Recent Labs 04/29/19 0000 04/30/19 0050 04/30/19 1336 05/01/19 0015 NA 138 140 138 139 K 3.3* 3.0* 3.2* 3.1* CL 106 106 103 103 BICARB 28 27 31 29 BUN 6 6 8 9 EGFRAFRICAN >60 >60 >60 >60 CR 0.50* 0.49* 0.56* 0.56* GLU 88 92 95 91 CA 8.0* 7.9* 7.9* 7.8* MG 1.6 1.9 -- 1.3* PO4 2.3* 2.6 -- 2.4 I agree with the NPP s assessment and stated plan of care. This includes: Status post cord blood transplant, details shown- - FluCyTBI conditioned double cord transplant on the [facility] trial, randomized to SOC - currently day+7 Day 0 = 04/22/19 - s/p infusion of 0.07 x 10^6 CD34+ cells / Kg Donor N/NMDP ID: [id number] - s/p infusion of 0.1 x 10^6 CD34+ cells / Kg Donor N/NMDP ID:[id number] No evidence of clinically active GVHD. Continue tacrolimus and MMF On infectious disease assessment, patient already has had fever/ neutropenia episode with s treptococcal bacteremia; on cefepime for empiric antibiotics; still has low-grade fevers but no current chills. No signs of sepsis. Continues prophylaxis with Valacyclovir + letemovir (Cord transplant) Posaconazole(Cord transplant) Management of chemotherapy-induced nausea and vomiting PRN, continue ondansetron as needed Transfusion of red blood cells and platelets PRN cytopenias. Platelets again today for pat ients severe coagulopathy due to thrombocytopenia Electrolyte replacement PRN deficiencies; potassium today for hypokalemia and magnesium for hypomagnesemia Patient does require oxygen. Still with episodes of fluid overload. Patient had normal ej ection fraction prior to transplant. We will recommend repeat echocardiography to evaluate if she has any evidence of cyclophosphamide induced cardiotoxicity with secondary cardiomyop athy Patient has now developed diarrhea. Antimotility agents continue. Patient is still being held for maintenance IV fluids given her fluid status. However, if the diarrhea escalates, she will require IV hydration, possibly TPN Interventions for critical care performed or provided today include: none. 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 Continue present supportive care as outlined in our orders. See changes as indicated in ou r orders from today. Other: With double cord blood transplant, anticipate that engraftment may be delayed Sukhi Millan MD [facility] [id number] Mailcode: [id number] [place] [phone] Diane Davenport PA - 04/30/2019 6:03 PM PDT Daily GISSEL Note - Transplant Admit [facility] Attending: Sukhi Millan MD [facility] Physician: Sejal De La Torre MD PCP: LACY Perez Date of Admission: 04/15/2019 Hematologic Malignancy: MDS Conditioning regimen: FluCyTBI Date of transplant: 04/22/2019 Donor: CBU 1: [id number] match, CBU 2: [id number]/02 match Reason for admission: Scheduled admission for myeloablative chemotherapy with subsequent st em cell infusion. ID: [id number] with MDS admitted for FluCyTBI UCB on [facility]. HX HTN, PICC associated thrombosis 24 hour events/plans: -MDS: admitted for FluCyTBI (on [facility] Trial), currently day +8 -Pancytopenia: standard transfusion parameters. -Transfused 2 units of pRBCs today -Transfused 1 PPH today -NTP fever: noted 04/28 with bld cx positive for strep bacteremia (see below), UA: negative , CXR: negative for infection, trace pleural effusions. Additional fever on 04/30, work-up s ent. -(04/29, 04/30) Bld cx: PENDING -Strep bacteremia: (04/28) NTP fever with bld cx +strep bacteremia. -(04/29) ID consulted: -Continue Cefepime -Line to remain in place unless patient becomes hemodynamically unstable, persistently bact eremic and/or sepsis arises. -Repeat cultures positive, pull line and consider TTE and repeat upper extremity ultrasound -Hypoxemia: noted 04/30 overnight w/ saturation of 88-89% most likely r/t FVO -Lasix 20-40 mg IV PRN -Nosebleeds: started 04/30 -Afrin PRN -Diarrhea: (04/25) Clostridium difficile negative. (04/25) GI path panel negative. -Imodium PRN -Hemorrhoidal pain: -Nifedipine 0.3%-Lidocaine 1.5% TID PRN -Proctozone 2.5% rectal cream TID PRN -Sitz baths after stooling and at least 2-3 times daily -Lytes: standard electrolyte replacement. -Transfused potassium today Subjective: She is doing okay. Had an episode of SOB overnight, relieved with lasix. Repor ts a mild frontal headache. No change in vision, emesis. Eating some soup/crackers. Tolerati ng liquids. No abdominal pain or cramping. No diarrhea, soft stools. Ambulating on own. Objective: Last Vitals: BP 143/78 (BP Location: Left upper arm, Patient Position: Lying on back) | Pu lse 80 | Temp 36.9 C (98.4 F) (Oral) | Resp 16 | Ht 1.591 m (5' 2.64") | Wt 74.2 kg (163 lb 10.4 oz) | SpO2 92% | BMI 29.32 kg/m | BSA 1.81 m 24 Hour Vital Min/Max: Systolic (24hrs), Av , Min:120 , Max:150 Diastolic (24hrs), Av, Min:51, Max:88 Pulse Min: 77 Max: 94 Temp Min: 36.5 C (97.7 F) Max: 38 C (100.4 F) Resp Min: 16 Max: 20 SpO2 Min: 88 % Max: 97 % Intake/Output Summary (Last 24 hours) at 04/30/2019 1803 Last data filed at 04/30/2019 1738 Gross per 24 hour Intake 4510 ml Output 5600 ml Net -1090 ml Physical Exam: General: This is a female in no acute distress sitting up in the bed. Pleasant a nd cooperative. HEENT: PERRL. Sclerae anicteric. Mucosa pink and moist. +Ulcerations with pseudomembrane s with mild erythema to posterior pharynx. Skin: No diaphoresis, rashes, lesions noted. Chest: Lungs clear to auscultation bilaterally. No wheezing, rales or rhonchi bilaterally. CV: RRR, no murmurs. Abdomen: S/NT/ND with NABS. No guarding, rigidity or rebound tenderness. No HSM appreciat ed. Extremities: Pulses strong and equal bilaterally. No c/c/+trace bilateral lower extremity edema. Neuro: Alert and oriented x 3. Grossly nonfocal exam. CVC: Central Line, DL - no erythema, edema, tenderness or drainage. Dressing clean, dry an d intact. Laboratory Results: Recent Labs 04/29/19 0000 04/30/19 0050 04/30/19 1336 NA 138 140 138 K 3.3* 3.0* 3.2* CL 106 106 103 BICARB 28 27 31 BUN 6 6 8 CR 0.50* 0.49* 0.56* GLU 88 92 95 CA 8.0* 7.9* 7.9* AST 10 14 16 ALT 14 15 15 AP 89 85 96 TBILI 0.6 0.6 1.0 TP 5.5* 5.5* 6.3* ALB 2.4* 2.5* 2.6* Recent Labs 04/21/19 0022 04/21/19 1655 04/22/19 0011 04/28/19 0000 04/29/19 0000 04/30/19 0048 WBC 2.14* 1.65* 0.91* < > <0.10* <0.10* <0.10* RBC 3.56* 4.00 3.92* < > 2.68* 2.59* 2.19* HB 10.1* 11.3* 10.9* < > 7.4* 7.2* 6.2* HCT 31.6* 35.0* 34.5* < > 22.6* 21.4* 18.3* PLT 162 168 161 < > 8* 8* 5* NEUTROPERC 94.0* 99.1* 96.5* -- -- -- -- LYMPHPERC 0.9* 0.9* 1.8* -- -- -- -- MONOPERC 0.0* 0.0* 0.0* -- -- -- -- BASOPERC 0.9 0.0 0.0 -- -- -- -- EOSPERC 0.5* 0.0* 1.7 -- -- -- -- < > = values in this interval not displayed. 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 Her hematogical history da jostin back to 2015 when she noted progressive fatigue. 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 She was working 6 days per week and thought she was working too hard. She left her job in August 2017 to give herself s ome time to feel better. She had been to various physicians in [place] for fatigue without answer s. In January 15, she developed fevers up to 104. She was tested for lyme disease, rheumatologi david conditions which were all negative. She began to notice that her counts were dropping. S he relocated to [facility] from [place] to live with her niece in 06/2018. She saw a local PA in [facility] 07/2018 Meredith Sanchez who did further testing. Labs on 10/07/18 showed normal chemistries, Bilirubin 1.4, hepatitis negative, ESR elevated at 174 with RA, RIOS C3/C4 nega tive. CBC showed WBC 2.4, Hb 10.8, Plt 166K, ANC 1529. She was referred to Dr. Sequeira ( medical oncology) on 10/29. Bone marrow biopsy was performed on 11/05 showing hypercellular mar row (70%) with 18% by morphology and 26% on flow. Mild erythroid hyperplasia and megakaryocy tic atypia. Blast immunophenotype was positive for CD33, CD45 dim, CD34, CD15, CD117, CD 11c , MPO. 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 Cytogenetics were normal. MDS and AML FISH panel was negative. NGS panel was negative for FLT3, NPM1, CEBPA, c-KIT, I DH1, IDH2, TP53. She started Vidaza locally on December 24 however developed a rash to the SQ injection and missed D3, dexamethasone was added for D4-D7. She lives in a travel trailer at her niece's house. Her niece has 5 dogs, 2 chicken, 3 cats and 1 ferret. She is applying fo r disability and not currently working. Her niece owns a PET SPA and she helps out as needed . She has no healthy siblings. One brother in [place] is an alcoholic. Older sister lives i n a mcfp due to vascular dementia and severe diabetes. Since my last visit with Mirian gilman, she was admitted to the hospital 01/14-01/26 [...] option and she consen martha to kyle "[id number]: A Multicenter, Randomized, Phase III Registration Trial of Tra nsplantation of NiCord, Ex Vivo Expanded, UCB-derived, Stem and Progenitor Cells, vs. Unma nipulated UCB for Patients With Hematological Malignancies". She was randomized to SOC arm. C3 aza started on 02/21-end 03/01. Tolerated well without complications. MDS (myelodysplastic syndrome) (HCC) 11/30/2018 Initial Diagnosis MDS (myelodysplastic syndrome) (HCC) 12/02/2018 - 12/29/2018 Chemotherapy azaCITIDine (VIDAZA) injection 125 mg, 75 mg/m2 = 125 mg, subcutaneous, ONCE, 1 of 6 cycles 04/15/2019 - Chemotherapy fludarabine (FLUDARA) 42.5 mg in NaCl 0.9 % (NS) IV, 25 mg/m2 = 42.5 mg, intravenous, EVERY 24 HOURS, 0 of 1 cycle cyclophosphamide (CYTOXAN) 60 mg/kg = 4,000 mg in NaCl 0.9 % (NS) IV, 60 mg/kg = 4,000 mg, intravenous, EVERY 24 HOURS, 0 of 1 cycle Hospitalization History: Hematology: #Hematologic Malignancy: MDS Conditioning Regimen: FluCyTBI Stem cell transplant -BMT Day: 04/22/2019 -Stem Cell product: tolerated stem cell product on 04/22/2019 without complications. CD 34 count = 0.07 x 10 6 per kg and 0.10 x 10 6 per kig #Pancytopenia likely r/t chemotherapy: -Antimicrobials below -See supportive care #Supportive Care: Growth Factor: Daily filgrastrim started Day +1 and will continue until ANC > 1500 x 2 c onsecutive days. Labs: Continue to check CBC daily Transfusion parameters: -Transfuse PRBCs for HCT <21% if asymptomatic OR <24% if symptomatic -Transfuse PPH for platelet count <10,000 sooner for s/s bleeding GVHD: no s/s acute GvHD noted Prophylaxis/Treatment: Prophylaxis with tacrolimus and MMF per [facility] protocol - Tacrolimus started D-3 (goal 5-15) -Tacrolimus 0.5 mg PO qPM -Tacrolimus 1.0 mg PO qAM -MMF given at a dose of 15 mg/kg TID D-3 to D+60 Staging: Skin: stage 0 Gut: stage 0 Liver: stage 0 Overall Grade: 0 HEENT: #Nosebleeds: started 04/30 with intermittent bleeding, controlled -Afrin PRN Pulmonary: Pretransplant PFTs completed on 03/10/19 showed FEV1 of 76% predicted, FVC of 87% predicted and adjusted DLCO of 77% predicted. #Hypoxemia: noted 04/30 overnight w/ saturation of 88-89% most likely r/t FVO. Improved wit h lasix. Improving -Lasix 20-40 mg IV PRN Cardiovascular: Pretransplant TTE completed on 03/10/2019 showed a LVEF of 64%. #HTN: SBP >180s s/p stem cell infusion product. Given Hydralazine x once with resolution. Resolved. #Hx/o PICC line associated DVT:Noted on US 01/17/19 involved both right and left UE. e completed 3 months ofanticoagulationwith apixiban, end date 04/14/19. GI: #Mucositis: -Continue mouth rinses -Special mouthwash PRN -Oxycodone 515 q4hrs PRN #Hemorrhoidal pain: -Nifedipine 0.3%-Lidocaine 1.5% TID PRN -Proctozone 2.5% rectal cream TID PRN -Sitz baths after stooling and at least 2-3 times daily #Diarrhea: (04/25) Clostridium difficile negative. (04/25) GI path panel negative. -Imodium PRN #NIRAJ: controlled -Zofran ODT 8 mg q12hrs -Antiemetics PRN #Risk of gastritis: -Pepcid 20 mg BID #Risk for VOD: no e/o this currently -Ursodiol 500 mg PO BID /Renal: No acute issues Psych: #Depression: Stable, continue SSRI. - Lexapro 20 mg PO daily Infectious Disease: #Herpes Zoster, recent history: Noted in December, now s/p treatment with IV acyclovirfrom approx 01/10 through 01/16 then transitioned to valacyclovir 1g TID to complete an additional 7dcourse (extended for new lesions).She will continue on valacyclovir(rathern than acy clovir)through day +365 post transplant. -Valacyclovir 500mg BID #Non-neutropenic fever:Noted on 04/17. She was started on cefepime, however blood cul tures with NGTD x 72h and fevers since defervesced.She wasde-escalatedto levaquin pr ophylaxis on 04/20 (although not neutropenic), no fevers since de-escalation. -s/pCefepime (04/17 - 04/20) #NTP fever: noted 04/28 with bld cx positive for strep bacteremia (see below), UA: negative , CXR: negative for infection, trace pleural effusions. Additional fever on 04/30, work-up s ent. -(04/29, 04/30) Bld cx: PENDING #Strep Bacteremia: (04/28) NTP fever with bld cx +strep bacteremia. -(04/29) ID consulted: -Cefepime 2g IV q8hrs, started 04/28 -Line to remain in place unless patient becomes hemodynamically unstable, persistently bact eremic and/or sepsis arises. -If repeat cultures positive, pull line and consider TTE and re peat upper extremity ultrasound #Prophylaxis: Bacterial: Cefepime Fungal: Posaconazole Viral: Valacyclovir PCP: Pentamidine prior to discharge Toxo: Pt is toxo negative, no further testing required. #Routine infectious disease testing -CMV by PCR weekly, starting after day 0. Lab Results Component Value Date CMVQUANTPCR Undetected 04/22/2019 CMVQUANTPCR Undetected 04/16/2019 -Asp. Galactomannan weekly, starting after day 0. Lab Results Component Value Date GALACTO Negative 04/25/2019 Fluid/Nutrition/Lytes: #Nutrition: Low bacterial diet #Fluid: Assess daily in recent setting of FVO #Lytes: Continue to check chemistries daily. Replace per supportive care protocol. Disposition: Scheduled admission for myeloablative chemotherapy with subsequent stem cell infusion. Anticipate 4 weeks hospitalization. LACY Hogan [facility] [id number] Mailcode: [email or web address] [place] [address] Sukhi Rios MD - 04/30/2019 1:24 PM PDT Date: 04/30/2019 [facility] Stephenie Camarillo is a 53 y.o. female Patient Active Problem List Diagnosis MDS (myelodysplastic syndrome) (HCC) Acute deep vein thrombosis (DVT) of both upper extremities (HCC) Stem cell transplant candidate Immunocompromised state due to drug therapy Pancytopenia (HCC) Bone Marrow Transplant Attending Inpatient Progress Note: I was present and rounded with the NPP Sanjay HOUSE today. The history (as documented today) i s reviewed; patient interviewed and personally examined by me. It is noted that patient rep orts: No chills or rigors. Still with low-grade fevers. Previously these were documented. Does not complain of oral discomfort; major complaint is discomfort in the perirectal area from hemorrhoids. I agree with all the NPP s findings of note. Significant findings include: BP 137/62 (B P Location: Left upper arm, Patient Position: Lying on back) | Pulse 86 | Temp 38 C (100 .4 F) (Oral) | Resp 18 | Ht 1.591 m (5' 2.64") | Wt 74.2 kg (163 lb 10.4 oz) | SpO2 91 % | BMI 29.32 kg/m | BSA 1.81 m Intake/Output 04/28 701 - 04/29 0704/29 07 - 04/30 0704/30 07 - 05/01 0700 P.O. 1070 3600 900 I.V. 460 125 45 Blood 945 350 IV Piggyback Total Intake 1530 4670 1295 Urine (mL/kg/hr) 2600 (1.5) 4090 (2.3) 1150 (2.4) Other 630 205 200 Total Output(mL/kg) 3230 (43.8) 4295 (57.9) 1350 (18.2) Net -1700 +375 -55 Stool 3 x Temp (24hrs), Av.9 C (98.4 F), Min:36.5 C (97.7 F), Max:38 C (100.4 F) Sinuses were nontender. Catheter site was intact without surrounding cellulitis. Oral phary nx was notable that at the angle of the jaw, near the tonsillar pillars bilaterally, there w as evidence of ulceration with pseudomembranes. Some erythema in the hypopharynx. Lungs we re clear to auscultation. Abdomen was benign. Patient was interactive with the examiner and did not appear anxious or angry Lab/x-ray findings (as recorded in the NPP s note from today) requiring intervention incl ude: CBC with diff last 72 hours (or 3 results) Recent Labs 04/28/19 0000 04/29/19 0000 04/30/19 0048 WBC <0.10* <0.10* <0.10* HB 7.4* 7.2* 6.2* HCT 22.6* 21.4* 18.3* PLT 8* 8* 5* Liver Tests: Last 72 hours (or 3 results) Recent Labs 04/28/19 0000 04/29/19 0000 04/30/19 0050 AST 9 10 14 ALT 12 14 15 TBILI 0.4 0.6 0.6 AP 86 89 85 ALB 2.5* 2.4* 2.5* TP 5.2* 5.5* 5.5* Chemistries: Last 72 Hours (or 3 results): Recent Labs 04/28/19 0000 04/29/19 0000 04/30/19 0050 NA 140 138 140 K 3.3* 3.3* 3.0* CL 111* 106 106 BICARB 24 28 27 BUN 4* 6 6 EGFRAFRICAN >60 >60 >60 CR 0.46* 0.50* 0.49* GLU 102* 88 92 CA 8.1* 8.0* 7.9* MG 1.6 1.6 1.9 PO4 2.1* 2.3* 2.6 I agree with the NPP s assessment and stated plan of care. This includes: Status post cord blood transplant, details shown- - FluCyTBI conditioned double cord transplant on the [facility] trial, randomized to SOC - currently day+7 Day 0 = 04/22/19 - s/p infusion of 0.07 x 10^6 CD34+ cells / Kg Donor N/NMD ID: [id number] - s/p infusion of 0.1 x 10^6 CD34+ cells / Kg Donor N/NMDP ID:[id number] No evidence of clinically active GVHD. Continue tacrolimus and MMF On infectious disease assessment, patient already has had fever/ neutropenia episode with s treptococcal bacteremia; on cefepime for empiric antibiotics Continues prophylaxis with Valacyclovir + letemovir (Cord transplant) Posaconazole(Cord transplant) Management of chemotherapy-induced nausea and vomiting PRN, continue ondansetron as needed Transfusion of red blood cells and platelets PRN cytopenias. Platelets today for patients severe coagulopathy due to thrombocytopenia Electrolyte replacement PRN deficiencies; potassium today for hypokalemia Interventions for critical care performed or provided today include: none. 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 Continue present supportive care as outlined in our orders. See changes as indicated in ou r orders from today. 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 Subjective/24hr Events: Fevered overnight started on cefepime [place] chills with fever and again this AM No rashes Perirectal pain is severe still No mouth pain but possible small irritation behind her left upper tooth Some nausea controlled Assessment and plan: # MDS - EB2: Cytogenetics and FISH without abnormalities. - FluCyTBI conditioned double cord transplant on the [facility] trial, randomized to SOC - currently day +7 Day 0 = 04/22/19 - s/p infusion of 0.07 x 10^6 CD34+ cells / Kg Donor MRN/NMDP ID:[id number] - s/p infusion of 0.1 x 10^6 CD34+ cells / Kg Donor MRN/NMDP ID:[id number] #GVHD Prophylaxis: Prophylaxis with tacrolimus and MMF per [facility] protocol - Tacrolimus starting D-3, goal level 5-15 -MMF given at a dose of 15 mg/kg TID D-3 to D+60 # ID Neutropenic fever 04/28/19 - Blood cx + Strep species species pending - Cefepime 04/28/19- - Seen by transplant ID Prophylaxis - Immunocompromised secondary to chemotherapy and stem cell transplant Valacyclovir + letemovir (Cord transplant) Posaconazole(Cord transpland) Pentamidine prior to discharge # Mucositis Grade 1 Continue mouth rinses # Hemorrhoidal pain - continue zinc cream and hycrocort prn - Start Sitz baths after stooling and at least 2-3 times daily - Nifedipine lidocaine prn # Diarrhea Likely chemo toxicity C dif and stool pathogen negative Supportive care # Chemo induced nausea - zofran scheduled q12 # Hypertension: With SBP to the 180s after infusion of first product. She was given hydralizine x 1, SBP t hen down to the 150s. - Improved currently. Will monitor #PICC line associated DVT: Noted on US 01/17/19 involved both right and left UE. She completed 3 months ofanticoagulationwith apixiban, end date 04/14/19. # Herpes Zoster, recent history: -Noted in December, now s/p treatment with IV acyclovirfrom approx 01/10 through 01/16 then transitioned to valacyclovir 1g TID to complete an additional 7dcourse (extended for new lesions). - She will continue on valacyclovir(rathern than acyclovir)through day +365 post transp lant. -Continue valacyclovir at 500mg BID # Depression: Stable, continue SSRI. - Lexapro 20 mg PO daily # At risk for VOD: On ursodiol, continue - ursodiol 500 m PO BID # Fluid up with weight gain Lasix # Non-neutropenic fever: Noted on 04/17. She was started on cefepime, however blood cultures with NGTD x 72h and f fadia since defervesced.She wasde-escalatedto levaquin prophylaxis on 04/20 (althoug h not neutropenic), no fevers since de-escalation. -s/pcefepime (04/17 - 04/20) # Pancytopenia:Anticipated secondary to chemotherapy. Standard transfusion parameters as below: - transfuse 1 unit PRBC for hct <21 - transfuse 1 unit platelets for plt <10k Other diagnoses: Patients Hospital Problem List: Active Hospital Problems 1) *MDS (myelodysplastic syndrome) (HCC) 2) Acute deep vein thrombosis (DVT) of both upper extremities (HCC) Developed while hospitalized for shingles and had PICC in 3) Immunocompromised state due to drug therapy 4) Pancytopenia (HCC) Physical Exam: Last Vitals: BP 129/65 (BP Location: Left upper arm, Patient Position: Lying on back) | Pu lse 83 | Temp 37.2 C (98.9 F) (Oral) | Resp 16 | Ht 1.591 m (5' 2.64") | Wt 74 kg (1 63 lb 2.3 oz) | SpO2 99% | BMI 29.23 kg/m | BSA 1.81 m 24 Hour Vital Min/Max: Systolic (24hrs), Av , Min:115 , Max:133 Diastolic (24hrs), Av, Min:52, Max:67 Pulse Min: 83 Max: 92 Temp Min: 36.7 C (98.1 F) Max: 38.1 C (100.6 F) Resp Min: 16 Max: 18 SpO2 Min: 92 % Max: 99 % Intake/Output 04/27 701 - 04/28 0700 04/28 701 - 04/29 0704/29 07 - 04/30 0700 P.O. 1930 1070 I.V. 2230 460 Blood 270 285 IV Piggyback 100 Total Intake 4530 1530 285 Urine (mL/kg/hr) 2300 (1.3) 2600 (1.5) 1100 (2.8) Other 155 630 0 Total Output(mL/kg) 2455 (33.3) 3230 (43.8) 1100 (14.9) Net +2075 -1700 -815 Stool 3 x 2 x Admit Weight: Last 3 Weights Weight: 74 kg (163 lb 2.3 oz) (04/29/19 0858) Weight: 73.8 kg (162 lb 11.2 oz) (04/28/19 045) Weight: 71.9 kg (158 lb 8.2 oz) (04/27/19 045) GENERAL: NAD A+O x 3 HEENT: MMM pallor to buccal mucosa EYES: Sclera anicteric CV: RRR Pulm: CTA B Abd: soft without masses. Non tender normoactive Skin: no rashes Extremities: no clubbing cyanosis or edema Rectal external exam: External hemorrhoids non thrombosed no inturation Line: clean dry and intact Anneida Calvin phase 3 (IRB 35580) Acute GVHD Staging Complete on study visit [...] mL diarrhea/day 2 25-50% BSA 3.1-6 mg/dL 9393-2388 mL diarrhea/day 3 >50% BSA Generalized erythroderma 6.1-15 mg/dL >1500 mL diarrhea/day 4 Generalized erythroderma with bullus formation >15 mg/dL Severe abdominal pain with/without ileus Determine Differential Diagnosis: (Y/N): GVHD:n Drug Reaction:n Conditioning regimen toxicity:n Infection:n Other (describe):n (Y/N): GVHD:n Drug Reaction:n Conditioning regimen toxicity:n TPN:n Infection:n Other (describe):n (Y/N): GVHD:n Drug Reaction:n Conditioning regimen toxicity:y TPN:n Infection:n Other (describe):n (Y/N): GVHD:n Drug Reaction:n Conditioning regimen toxicity:y TPN:n Infection:n Other (describe):n Complete Values: BSA%:n=0 Bullae (Y/N):n TBili: 0.6 24H Diarrhea Vol: 630 Severe abd pain (Y/N):n Ileus (Y/N):n Assign Stage: 0 0 0 0 (if gvh would be 2 but not not GVH) Presumptive/ Confirmed Dx of aGVHD? (Y/N) n n n n Lab/x-ray findings (as recorded in the NPP's note from today) CBC with diff last 72 hours (or 3 results) - Refreshable Recent Labs 04/27/19 01004/28/19 0000 04/29/19 0000 WBC <0.10* <0.10* <0.10* HB 8.1* 7.4* 7.2* HCT 24.8* 22.6* 21.4* PLT 10* 8* 8* Recent Labs 04/27/19 0102 04/28/19 0000 04/29/19 0000 NA 142 140 138 K 3.2* 3.3* 3.3* CL 112* 111* 106 BICARB 22 24 28 BUN 5* 4* 6 CR 0.53* 0.46* 0.50* GLU 104* 102* 88 CA 7.5* 8.1* 8.0* AST 9 9 10 ALT 11 12 14 AP 86 86 89 TBILI 0.4 0.4 0.6 TP 5.2* 5.2* 5.5* ALB 2.5* 2.5* 2.4* ANIONGAP 8 5 4 ANIONALBCOR 11 8 8 TACROLIMUS (FK 506) Date/Time Value Ref Range Status 04/28/2019 08:20 AM 7.1 5.0 - 15.0 ng/mL Final Comment: DRAW tacro level prior to giving 0900 dose 04/26/2019 08:14 AM 7.1 5.0 - 15.0 ng/mL Final Comment: DRAW tacro level prior to giving 0900 dose 04/22/2019 08:50 AM 4.6 (L) 5.0 - 15.0 ng/mL Final Comment: DRAW tacro level prior to giving 0900 dose Lab Results Component Value Date CMVQUANTPCR Undetected 04/22/2019 CMVQUANTPCR Undetected 04/16/2019 Attending Physician s Total Time is 38 minutes, >50% spent counseling, coordination of ca re including reviewing the chart, examination of the patient, discussion of the disease and management of the disease and treatment side effects as well as managing orders as detailed above. DO [email or web address] Mecca Dewitt, [facility] - 04/28/2019 5:31 PM PDTFormatting of this note might be different fro m the original. Daily GISSEL Note - Transplant Admit [facility] Attending: Seferino Canchola MD PCP: LACY Perez Hematologic Malignancy: MDS Conditioning regimen: FluCyTBI Date of transplant: 04/22/19 Donor: UCB per [facility] ID: [id number] with MDS admitted for FluCyTBI U[facility] on [facility]. HX HTN, PICC associated thrombosis 24 hour events/plans: #MDS: Currently day +6 FluCyTBI UCB. #Pancytopenia: Standard transfusions.tx 1 pph #Diarrhea: with associated abdominal painlikely colitis infectious vs chemical. Output x 3 BM + 150 mL over 24 hours. CDiff and GI bacterial path panel negative. GI pathogen panel neg ative. Cdiff neg. Improving # Lytes; Standard repletions. HypoK, hypoMag- repleted # nutrition: Eating very small meals 50-100% x 2, took in 1.4L of oral fluids Subjective: No new issues- feeling a little better With diarrhea improving Objective: Last Vitals: BP 133/67 (BP Location: Left upper arm, Patient Position: Sitting) | Pulse 88 | Temp 37.4 C (99.3 F) (Axillary) | Resp 18 | Ht 1.591 m (5' 2.64") | Wt 73.8 kg (1 62 lb 11.2 oz) | SpO2 97% | BMI 29.15 kg/m | BSA 1.81 m 24 Hour Vital Min/Max: Systolic (24hrs), Av , Min:104 , Max:136 Diastolic (24hrs), Av, Min:49, Max:78 Pulse Min: 79 Max: 101 Temp Min: 36.6 C (97.9 F) Max: 37.7 C (99.9 F) Resp Min: 16 Max: 18 SpO2 Min: 92 % Max: 97 % Intake/Output Summary (Last 24 hours) at 04/28/2019 1731 Last data filed at 04/28/2019 1458 Gross per 24 hour Intake 3690 ml Output 2255 ml Net 1435 ml Physical Exam: General: This is a female in no acute distress. HEENT: PERRL. Sclerae anicteric. Mucosa pink and moist without erythema or exudate. Skin: No rash, lesions noted. Chest: Lungs clear to auscultation bilat. CV: RRR, no murmurs. Abdomen: S/NT/ND with NABS. No HSM appreciated. Extremities: Pulses strong and equal bilaterally. No c/c/e. Neuro: Alert and oriented x 3. Grossly nonfocal exam. CVC: groshong Laboratory Results: Recent Labs 04/26/19 0131 04/27/19 0102 04/28/19 0000 NA 141 142 140 K 3.7 3.2* 3.3* CL 112* 112* 111* BICARB 23 22 24 BUN 10 5* 4* CR 0.52* 0.53* 0.46* GLU 85 104* 102* CA 7.9* 7.5* 8.1* AST 11 9 9 ALT 11 11 12 AP 89 86 86 TBILI 0.5 0.4 0.4 TP 5.4* 5.2* 5.2* ALB 2.6* 2.5* 2.5* Recent Labs 04/21/19 0022 04/21/19 1655 04/22/19 0011 04/26/19 0124 04/27/19 0102 04/28/19 0000 WBC 2.14* 1.65* 0.91* < > <0.10* <0.10* <0.10* RBC 3.56* 4.00 3.92* < > 3.22* 2.94* 2.68* HB 10.1* 11.3* 10.9* < > 9.2* 8.1* 7.4* HCT 31.6* 35.0* 34.5* < > 27.3* 24.8* 22.6* PLT 162 168 161 < > 31* 10* 8* NEUTROPERC 94.0* 99.1* 96.5* -- -- -- -- LYMPHPERC 0.9* 0.9* 1.8* -- -- -- -- MONOPERC 0.0* 0.0* 0.0* -- -- -- -- BASOPERC 0.9 0.0 0.0 -- -- -- -- EOSPERC 0.5* 0.0* 1.7 -- -- -- -- < > = values in this interval not displayed. 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 Conditioning: FluCyTBI Day -6 Fludarabine 25 mg/m2 IV Day -5 Fludarabine 25 mg/m2 IV Cyclophosphamide 60 mg/kg IV Day -4 Fludarabine 25 mg/m2 IV Cyclophosphamide 60 mg/kg IV Day -3 TBI 2.0 Gy BID Day -2 TBI 2.0 Gy BID Day -1 TBI 2.0 Gy BID Day 0 *UCB transplant: ProHema-CB unit infused first Stem cell transplant: Currently day +6 double cord transplant on the [facility] trial, randomized to SOC - Day 0 = 04/22/19 - s/p infusion of 0.07 x 10^6 CD34+ cells / Kg [facility] [id number] - s/p infusion of 0.1 x 10^6 CD34+ cells / Kg Donor MRN/NMDP ID:[id number] Supportive care - Transfuse to keep Hct >21% - Transfuse to keep platelets >10,000 - Neupogen to start per protocol until ANC >1500 on two consecutive days GVHD Prophylaxis: Prophylaxis with tacrolimus and MMF per [facility] protocol - Tacrolimus starting D-3, goal level 5-15 -MMF given at a dose of 15 mg/kg TID D-3 to D+60 GI Risk of Mucositis -Continue mouth rinses Hemorrhoidal pain - continue zinc cream and hycrocort prn - Start Sitz baths after stooling and at least 2-3 times daily Diarrhea: with associated abdominal pain likely colitis infectious vs chemical. CDiff and GI bacterial path panel negative. -GI viral pathogen panel PENDING -Instructed on BRAT diet (patient eating biscuits and gravy prior to diarrheal episode thi s AM) -bentyl for abd pain -if path panel negative with continued symptoms consider CT AP -if path panel negative- imodium PRN. Chemo induced nausea; controlled -zofran scheduled q12 At risk for VOD: On ursodiol, continue - ursodiol 500 m PO BID Cardiology: Hypertension: With SBP to the 180s after infusion of first product. She was given hydra lizine x 1, SBP then down to the 150s. RESOLVED -monitor PICC line associated DVT:Noted on US 01/17/19 involved both right and left UE.She comp leted 3 months ofanticoagulationwith apixiban, end date 04/14/19. Psyche/social: Depression: Stable, continue SSRI. - Lexapro 20 mg PO daily ID Prophylaxis #Herpes Zoster, recent history: Noted in December, now s/p treatment with IV acyclovirfrom approx 01/10 through 01/16 then transitioned to valacyclovir 1g TID to complete an additional 7dcourse (extended for new lesions).She will continue on valacyclovir(rathern than acy clovir)through day +365 post transplant. -Continue valacyclovir at 500mg BID #Non-neutropenic fever:Noted on 04/17. She was started on cefepime, however blood c ultures with NGTD x 72h and fevers since defervesced.She wasde-escalatedto levaquin prophylaxis on 04/20 (although not neutropenic), no fevers since de-escalation.s/pcefepi me (04/17 - 04/20) Prophylaxis: Levofloxacin Valacyclovir + letemovir (Cord transplant) Posaconazole(Cord transpland) Pentamidine prior to discharge #Routine infectious disease testing -CMV by PCR weekly, starting after day 0. Lab Results Component Value Date CMVQUANTPCR Undetected 04/22/2019 CMVQUANTPCR Undetected 04/16/2019 -Asp. Galactomannan weekly, starting after day 0. 04/25 negative HEATHER Paredes [facility] [address] Mailcode: [email or web address] [place] [id number] ;llo xel Canchola, DO - 04/28/2019 9:19 AM PDTFormatting of this note might be different from the origina l. Date:04/28/2019 Hematologic Malignancy and Bone Marrow Transplant Attending Inpatient Progress Note: Patient s primary diagnosis: Stephenie Camarillo is a 53 year old female with a history of MDS -EB2 s/p treatment with 3 cycles of azacitadine, admitted currently for a FluCyTBI condition ed cord blood transplant on the [employer] tria, randomized to the standard of care arm, day 0 = 04/22/19. Subjective/24hr Events: Some loose stool with noted cramping still, no blooed hemorrhoidal pain improved with nifedipine and lidocaine No fevers No blood in the stool No rashes ROS otherwise negative Assessment and plan: # MDS - EB2: Cytogenetics and FISH without abnormalities. - FluCyTBI conditioned double cord transplant on the [facility] trial, randomized to SOC - currently day +6 Day 0 = 04/22/19 - s/p infusion of 0.07 x 10^6 CD34+ cells / Kg Donor MRN/NMDP ID:[id number] - s/p infusion of 0.1 x 10^6 CD34+ cells / Kg Donor MRN/NMDP ID:[id number] #GVHD Prophylaxis: Prophylaxis with tacrolimus and MMF per [facility] protocol - Tacrolimus starting D-3, goal level 5-15 -MMF given at a dose of 15 mg/kg TID D-3 to D+60 # Mucositis Grade 1 Continue mouth rinses # Hemorrhoidal pain - continue zinc cream and hycrocort prn - Start Sitz baths after stooling and at least 2-3 times daily - Nifedipine lidocaine prn # Diarrhea likely from chemo but ddx includes infection given cramping - Check CDif and path panel negative - If cdif negative then PRN immodium # Chemo induced nausea - Start zofran scheduled q12 # Hypertension: With SBP to the 180s after infusion of first product. She was given hydralizine x 1, SBP t hen down to the 150s. - Improved currently. Will monitor #PICC line associated DVT: Noted on US 01/17/19 involved both right and left UE. She completed 3 months ofanticoagulationwith apixiban, end date 04/14/19. # Herpes Zoster, recent history: -Noted in December, now s/p treatment with IV acyclovirfrom approx 01/10 through 01/16 then transitioned to valacyclovir 1g TID to complete an additional 7dcourse (extended for new lesions). - She will continue on valacyclovir(rathern than acyclovir)through day +365 post transp lant. -Continue valacyclovir at 500mg BID # Depression: Stable, continue SSRI. - Lexapro 20 mg PO daily # At risk for VOD: On ursodiol, continue - ursodiol 500 m PO BID # Fluid up with weight gain Lasix # Non-neutropenic fever: Noted on 04/17. She was started on cefepime, however blood cultures with NGTD x 72h and f fadia since defervesced.She wasde-escalatedto levaquin prophylaxis on 04/20 (althoug h not neutropenic), no fevers since de-escalation. -s/pcefepime (04/17 - 04/20) # Pancytopenia:Anticipated secondary to chemotherapy. Standard transfusion parameters as below: - transfuse 1 unit PRBC for hct <21 - transfuse 1 unit platelets for plt <10k # ID Prophylaxis - Immunocompromised secondary to chemotherapy and stem cell transplant Levofloxacin Valacyclovir + letemovir (Cord transplant) Posaconazole(Cord transpland) Pentamidine prior to discharge Other diagnoses: Patients Hospital Problem List: Active Hospital Problems 1) *MDS (myelodysplastic syndrome) (HCC) 2) Acute deep vein thrombosis (DVT) of both upper extremities (HCC) Developed while hospitalized for shingles and had PICC in 3) Immunocompromised state due to drug therapy 4) Pancytopenia (HCC) Physical Exam: Last Vitals: BP 123/61 (BP Location: Left upper arm, Patient Position: Sitting) | Pulse 79 | Temp 36.7 C (98.1 F) (Oral) | Resp 16 | Ht 1.591 m (5' 2.64") | Wt 73.8 kg (162 l b 11.2 oz) | SpO2 95% | BMI 29.15 kg/m | BSA 1.81 m 24 Hour Vital Min/Max: Systolic (24hrs), Av , Min:104 , Max:136 Diastolic (24hrs), Av, Min:45, Max:78 Pulse Min: 75 Max: 101 Temp Min: 36.5 C (97.7 F) Max: 37.5 C (99.5 F) Resp Min: 16 Max: 22 SpO2 Min: 92 % Max: 97 % Intake/Output 04/26 701 - 04/27 0700 04/27 701 - 04/28 0700 04/28 07 - 04/29 0700 P.O. 1921 1930 I.V. 2420 2230 Blood 205 270 IV Piggyback 100 Total Intake 4546 4530 Urine (mL/kg/hr) 900 (0.5) 2300 (1.3) Other 1100 155 Total Output(mL/kg) 2000 (27.8) 2455 (33.3) Net +2546 +2075 Stool 3 x Admit Weight: Last 3 Weights Weight: 73.8 kg (162 lb 11.2 oz) (04/28/19 045) Weight: 71.9 kg (158 lb 8.2 oz) (04/27/19 045) Weight: 68.7 kg (151 lb 7.3 oz) (04/26/19 045) GENERAL: NAD A+O x 3 HEENT: MMM no lesions but early pallor to mucosa EYES: Sclera anicteric CV: RRR Pulm: CTA B Abd: soft without masses. Non tender normoactive Skin: no rashes Extremities: no clubbing cyanosis or edema Rectal external exam: External hemorrhoids non thrombosed no inturation Line: clean dry and intact Lab/x-ray findings (as recorded in the NPP's note from today) CBC with diff last 72 hours (or 3 results) - Refreshable Recent Labs 04/26/19 0124 04/27/19 0102 04/28/19 0000 WBC <0.10* <0.10* <0.10* HB 9.2* 8.1* 7.4* HCT 27.3* 24.8* 22.6* PLT 31* 10* 8* Recent Labs 04/26/19 0131 04/27/19 0102 04/28/19 0000 NA 141 142 140 K 3.7 3.2* 3.3* CL 112* 112* 111* BICARB 23 22 24 BUN 10 5* 4* CR 0.52* 0.53* 0.46* GLU 85 104* 102* CA 7.9* 7.5* 8.1* AST 11 9 9 ALT 11 11 12 AP 89 86 86 TBILI 0.5 0.4 0.4 TP 5.4* 5.2* 5.2* ALB 2.6* 2.5* 2.5* ANIONGAP 6 8 5 ANIONALBCOR 9 11 8 TACROLIMUS (FK 506) Date/Time Value Ref Range Status 04/26/2019 08:14 AM 7.1 5.0 - 15.0 ng/mL Final Comment: DRAW tacro level prior to giving 0900 dose 04/22/2019 08:50 AM 4.6 (L) 5.0 - 15.0 ng/mL Final Comment: DRAW tacro level prior to giving 0900 dose Lab Results Component Value Date CMVQUANTPCR Undetected 04/22/2019 CMVQUANTPCR Undetected 04/16/2019 Attending Physician s Total Time is 38 minutes, >50% spent counseling, coordination of ca re including reviewing the chart, examination of the patient, discussion of the disease and management of the disease and treatment side effects as well as managing orders as detailed above. DO [email or web address] Mecca Dewitt, [facility] - 04/27/2019 4:18 PM PDTFormatting of this note might be different fro m the original. Daily GISSEL Note - Transplant Admit [facility] Attending: Seferino Canchola MD PCP: LACY Perez Hematologic Malignancy: MDS Conditioning regimen: FluCyTBI Date of transplant: 04/22/19 Donor: UCB per [facility] ID: [id number] with MDS admitted for FluCyTBI UCB on [facility]. HX HTN, PICC associated thrombosis 24 hour events/plans: #MDS: Currently day +4 FluCyTBI UCB. #Pancytopenia: Standard transfusions. #Diarrhea: with associated abdominal painlikely colitis infectious vs chemical. Output 1600 mL over 24 hours. CDiff and GI bacterial path panel negative. GI viral pathogen panel JULIO Davis Instructed on BRAT diet (patient eating biscuits and gravy prior to diarrheal episode thi s AM), bentyl for abd pain and if path panel negative with continued symptoms consider CT AP and imodium PRN. -1.1L of stool in past 24 hours. -GI panel negative (viral and bacteremia) 04/26 -Cdiff -neg (04/26) # Lytes; Standard repletions. HypoK, hypoMag- repleted Subjective: Feeling very fatigued with diarrhea. Objective: Last Vitals: BP 121/70 (BP Location: Right upper arm, Patient Position: Sitting) | Pulse 7 5 | Temp 36.5 C (97.7 F) (Oral) | Resp 18 | Ht 1.591 m (5' 2.64") | Wt 71.9 kg (158 lb 8.2 oz) | SpO2 97% | BMI 28.40 kg/m | BSA 1.78 m 24 Hour Vital Min/Max: Systolic (24hrs), Av , Min:119 , Max:136 Diastolic (24hrs), Av, Min:45, Max:70 Pulse Min: 75 Max: 88 Temp Min: 36.3 C (97.3 F) Max: 37.1 C (98.8 F) Resp Min: 16 Max: 22 SpO2 Min: 94 % Max: 99 % Intake/Output Summary (Last 24 hours) at 04/27/2019 1618 Last data filed at 04/27/2019 1500 Gross per 24 hour Intake 3895 ml Output 2200 ml Net 1695 ml Physical Exam: General: This is a female in no acute distress. HEENT: PERRL. Sclerae anicteric. Mucosa pink and moist without erythema or exudate. Skin: No rash, lesions noted. Chest: Lungs clear to auscultation bilat. CV: RRR, no murmurs. Abdomen: S/NT/ND with NABS. No HSM appreciated. Extremities: Pulses strong and equal bilaterally. No c/c/e. Neuro: Alert and oriented x 3. Grossly nonfocal exam. CVC: groshong Laboratory Results: Recent Labs 04/25/19 0000 04/25/19 1700 04/26/19 0131 04/27/19 0102 NA 139 138 141 142 K 3.2* 3.5 3.7 3.2* CL 109* 109* 112* 112* BICARB 22 23 23 22 BUN 10 10 10 5* CR 0.44* 0.58* 0.52* 0.53* GLU 86 98 85 104* CA 8.5* 8.5* 7.9* 7.5* AST 16 -- 11 9 ALT 13 -- 11 11 AP 100* -- 89 86 TBILI 0.4 -- 0.5 0.4 TP 5.9* -- 5.4* 5.2* ALB 2.8* -- 2.6* 2.5* Recent Labs 04/21/19 0022 04/21/19 1655 04/22/19 0011 04/25/19 1527 04/26/19 0124 04/27/19 0102 WBC 2.14* 1.65* 0.91* < > <0.10* <0.10* <0.10* RBC 3.56* 4.00 3.92* < > 3.80* 3.22* 2.94* HB 10.1* 11.3* 10.9* < > 10.8* 9.2* 8.1* HCT 31.6* 35.0* 34.5* < > 31.8* 27.3* 24.8* PLT 162 168 161 < > 58* 31* 10* NEUTROPERC 94.0* 99.1* 96.5* -- -- -- -- LYMPHPERC 0.9* 0.9* 1.8* -- -- -- -- MONOPERC 0.0* 0.0* 0.0* -- -- -- -- BASOPERC 0.9 0.0 0.0 -- -- -- -- EOSPERC 0.5* 0.0* 1.7 -- -- -- -- < > = values in this interval not displayed. 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 Conditioning: FluCyTBI Day -6 Fludarabine 25 mg/m2 IV Day -5 Fludarabine 25 mg/m2 IV Cyclophosphamide 60 mg/kg IV Day -4 Fludarabine 25 mg/m2 IV Cyclophosphamide 60 mg/kg IV Day -3 TBI 2.0 Gy BID Day -2 TBI 2.0 Gy BID Day -1 TBI 2.0 Gy BID Day 0 *UCB transplant: ProHema-CB unit infused first Stem cell transplant: Currently day +5 double cord transplant on the [employer] trial, randomized to SOC - Day 0 = 04/22/19 - s/p infusion of 0.07 x 10^6 CD34+ cells / Kg Donor MRN/NMDP ID: [id number] - s/p infusion of 0.1 x 10^6 CD34+ cells / Kg Donor MRN/NMDP ID:[id number] Supportive care - Transfuse to keep Hct >21% - Transfuse to keep platelets >10,000 - Neupogen to start per protocol until ANC >1500 on two consecutive days 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 CDiff and GI bacterial path panel negative. -GI viral pathogen panel PENDING -Instructed on BRAT diet (patient eating biscuits and gravy prior to diarrheal episode thi s AM) -bentyl for abd pain -if path panel negative with continued symptoms consider CT AP -if path panel negative- imodium PRN. Chemo induced nausea; controlled -zofran scheduled q12 At risk for VOD: On ursodiol, continue - ursodiol 500 m PO BID Cardiology: Hypertension: With SBP to the 180s after infusion of first product. She was given hydra lizine x 1, SBP then down to the 150s. RESOLVED -monitor PICC line associated DVT:Noted on US 01/17/19 involved both right and left UE.She comp leted 3 months ofanticoagulationwith apixiban, end date 04/14/19. Psyche/social: Depression: Stable, continue SSRI. - Lexapro 20 mg PO daily #ID Prophylaxis Herpes Zoster, recent history: Noted in December, now s/p treatment with IV acyclovirfrom a pprox 01/10 through 01/16 then transitioned to valacyclovir 1g TID to complete an additional 7 dcourse (extended for new lesions).She will continue on valacyclovir(rathern than acyc lovir)through day +365 post transplant. -Continue valacyclovir at 500mg BID Non-neutropenic fever:Noted on 04/17. She was started on cefepime, however blood cu ltures with NGTD x 72h and fevers since defervesced.She wasde-escalatedto levaquin p rophylaxis on 04/20 (although not neutropenic), no fevers since de-escalation.s/pcefepim e (04/17 - 04/20) Prophylaxis: Levofloxacin Valacyclovir + letemovir (Cord transplant) Posaconazole(Cord transpland) Pentamidine prior to discharge #Routine infectious disease testing -CMV by PCR weekly, starting after day 0. Lab Results Component Value Date CMVQUANTPCR Undetected 04/22/2019 CMVQUANTPCR Undetected 04/16/2019 -Asp. Galactomannan weekly, starting after day 0. Lab Results Component Value Date GALACTO Negative 04/25/2019 HEATHER Paredes [facility] 14V [id number] Mailcode: [id number] [place] [address] ;llo Axel Garcia DO - 04/27/2019 11:12 AM PDTFormatting of this note might be different from the shainaa familia. Date:04/27/2019 Hematologic Malignancy and Bone Marrow Transplant Attending Inpatient Progress Note: Patient s primary diagnosis: Stephenie Camarillo is a 53 year old female with a history of MDS -EB2 s/p treatment with 3 cycles of azacitadine, admitted currently for a FluCyTBI condition ed cord blood transplant on the [employer] tria, randomized to the standard of care arm, day 0 = 04/22/19. Subjective/24hr Events: Some loose stool with noted cramping Main complaint is hemorrhoidal pain No fevers No blood in the stool No rashes ROS otherwise negative Assessment and plan: # MDS - EB2: Cytogenetics and FISH without abnormalities. - FluCyTBI conditioned double cord transplant on the [employer] trial, randomized to SOC - currently day +5 Day 0 = 04/22/19 - s/p infusion of 0.07 x 10^6 CD34+ cells / Kg Donor MRN/NMDP ID:[id number] - s/p infusion of 0.1 x 10^6 CD34+ cells / Kg Donor MRN/NMDP ID:[id number] #GVHD Prophylaxis: Prophylaxis with tacrolimus and MMF per [facility] protocol - Tacrolimus starting D-3, goal level 5-15 -MMF given at a dose of 15 mg/kg TID D-3 to D+60 # Mucositis Grade 1 Continue mouth rinses # Hemorrhoidal pain - continue zinc cream and hycrocort prn - Start Sitz baths after stooling and at least 2-3 times daily - Nifedipine lidocaine prn # Diarrhea likely from chemo but ddx includes infection given cramping - Check CDif and path panel negative - If cdif negative then PRN immodium # Chemo induced nausea - Start zofran scheduled q12 # Hypertension: With SBP to the 180s after infusion of first product. She was given hydralizine x 1, SBP t hen down to the 150s. - Improved currently. Will monitor #PICC line associated DVT: Noted on US 01/17/19 involved both right and left UE. She completed 3 months ofanticoagulationwith apixiban, end date 04/14/19. # Herpes Zoster, recent history: -Noted in December, now s/p treatment with IV acyclovirfrom approx 01/10 through 01/16 then transitioned to valacyclovir 1g TID to complete an additional 7dcourse (extended for new lesions). - She will continue on valacyclovir(rathern than acyclovir)through day +365 post transp lant. -Continue valacyclovir at 500mg BID # Depression: Stable, continue SSRI. - Lexapro 20 mg PO daily # At risk for VOD: On ursodiol, continue - ursodiol 500 m PO BID # Non-neutropenic fever: Noted on 04/17. She was started on cefepime, however blood cultures with NGTD x 72h and f fadia since defervesced.She wasde-escalatedto levaquin prophylaxis on 04/20 (althoug h not neutropenic), no fevers since de-escalation. -s/pcefepime (04/17 - 04/20) # Pancytopenia:Anticipated secondary to chemotherapy. Standard transfusion parameters as below: - transfuse 1 unit PRBC for hct <21 - transfuse 1 unit platelets for plt <10k # ID Prophylaxis - Immunocompromised secondary to chemotherapy and stem cell transplant Levofloxacin Valacyclovir + letemovir (Cord transplant) Posaconazole(Cord transpland) Pentamidine prior to discharge Other diagnoses: Patients Hospital Problem List: Active Hospital Problems 1) *MDS (myelodysplastic syndrome) (HCC) 2) Acute deep vein thrombosis (DVT) of both upper extremities (HCC) Developed while hospitalized for shingles and had PICC in 3) Immunocompromised state due to drug therapy 4) Pancytopenia (HCC) Physical Exam: Last Vitals: BP 119/62 (BP Location: Left upper arm, Patient Position: Sitting) | Pulse 83 | Temp 36.3 C (97.3 F) (Oral) | Resp 16 | Ht 1.591 m (5' 2.64") | Wt 71.9 kg (158 l b 8.2 oz) | SpO2 97% | BMI 28.40 kg/m | BSA 1.78 m 24 Hour Vital Min/Max: Systolic (24hrs), Av , Min:113 , Max:136 Diastolic (24hrs), Av, Min:62, Max:70 Pulse Min: 75 Max: 83 Temp Min: 36.3 C (97.3 F) Max: 37.1 C (98.8 F) Resp Min: 16 Max: 18 SpO2 Min: 97 % Max: 99 % Intake/Output 04/25 0701 - 04/26 0700 04/26 0701 - 04/27 0700 04/27 07 - 04/28 0700 P.O. 2141 1921 I.V. 1822 2420 300 Blood 205 IV Piggyback 115 100 Total Intake 4078 4546 400 Urine (mL/kg/hr) 1225 (0.7) 900 (0.5) Other 1730 1100 Total Output(mL/kg) 2955 (43) 2000 (27.8) Net +1123 +2546 +400 Admit Weight: Last 3 Weights Weight: 71.9 kg (158 lb 8.2 oz) (04/27/19457) Weight: 68.7 kg (151 lb 7.3 oz) (04/26/19453) Weight: 67.3 kg (148 lb 5.9 oz) (04/25/19 042) GENERAL: NAD A+O x 3 HEENT: MMM no lesions but early pallor to mucosa EYES: Sclera anicteric CV: RRR Pulm: CTA B Abd: soft without masses. Non tender decreased bowel sounds Skin: no rashes Extremities: no clubbing cyanosis or edema Rectal external exam: External hemorrhoids non thrombosed no inturation Line: clean dry and intact Lab/x-ray findings (as recorded in the NPP's note from today) CBC with diff last 72 hours (or 3 results) - Refreshable Recent Labs 04/25/19 1527 04/26/19 0124 04/27/19 0102 WBC <0.10* <0.10* <0.10* HB 10.8* 9.2* 8.1* HCT 31.8* 27.3* 24.8* PLT 58* 31* 10* Recent Labs 04/25/19 0000 04/25/19 1700 04/26/19 0131 04/27/19 0102 NA 139 138 141 142 K 3.2* 3.5 3.7 3.2* CL 109* 109* 112* 112* BICARB 22 23 23 22 BUN 10 10 10 5* CR 0.44* 0.58* 0.52* 0.53* GLU 86 98 85 104* CA 8.5* 8.5* 7.9* 7.5* AST 16 -- 11 9 ALT 13 -- 11 11 AP 100* -- 89 86 TBILI 0.4 -- 0.5 0.4 TP 5.9* -- 5.4* 5.2* ALB 2.8* -- 2.6* 2.5* ANIONGAP 8 6 6 8 ANIONALBCOR 11 -- 9 11 TACROLIMUS (FK 506) Date/Time Value Ref Range Status 04/26/2019 08:14 AM 7.1 5.0 - 15.0 ng/mL Final Comment: DRAW tacro level prior to giving 0900 dose 04/22/2019 08:50 AM 4.6 (L) 5.0 - 15.0 ng/mL Final Comment: DRAW tacro level prior to giving 0900 dose Lab Results Component Value Date CMVQUANTPCR Undetected 04/22/2019 CMVQUANTPCR Undetected 04/16/2019 Attending Physician s Total Time is 37 minutes, >50% spent counseling, coordination of ca re including reviewing the chart, examination of the patient, discussion of the disease and management of the disease and treatment side effects as well as managing orders as detailed above. DO oliver [email or web address] Thelma De Luna ANP - 04/26/2019 3:45 PM PDTFormatting of this note might be different fr om the original. Daily GISSEL Note - Transplant Admit [facility] for Hematologic Malignancies Attending: Seferino Canchola MD PCP: LACY Perez Hematologic Malignancy: MDS Conditioning regimen: FluCyTBI Date of transplant: 04/22/19 Donor: UCB per [facility] ID: [id number] with MDS admitted for FluCyTBI UCB on [facility]. HX HTN, PICC associated thrombosis 24 hour events/plans: MDS: Currently day +4 FluCyTBI UCB. Pancytopenia: Standard transfusions. Diarrhea: with associated abdominal painlikely colitis infectious vs chemical. Output 1600m L over 24 hours. CDiff and GI bacterial path panel negative. GI viral pathogen panel PENDING . Instructed on BRAT diet (patient eating biscuits and gravy prior to diarrheal episode this AM), bentyl for abd pain and if path panel negative with continued symptoms consider CT AP and imodium PRN. Lytes; Standard repletions. Subjective: Objective: Last Vitals: BP 113/67 (BP Location: Left upper arm, Patient Position: Sitting) | Pulse 80 | Temp 36.7 C (98.1 F) (Oral) | Resp 16 | Ht 1.591 m (5' 2.64") | Wt 68.7 kg (151 l b 7.3 oz) | SpO2 98% | BMI 27.14 kg/m | BSA 1.74 m 24 Hour Vital Min/Max: Systolic (24hrs), Av , Min:101 , Max:136 Diastolic (24hrs), Av, Min:52, Max:73 Pulse Min: 78 Max: 97 Temp Min: 36.5 C (97.7 F) Max: 37.1 C (98.8 F) Resp Min: 16 Max: 18 SpO2 Min: 97 % Max: 100 % Intake/Output Summary (Last 24 hours) at 04/26/2019 1545 Last data filed at 04/26/2019 1300 Gross per 24 hour Intake 4988 ml Output 2500 ml Net 2488 ml Physical Exam: General: This is a female in no acute distress. HEENT: PERRL. Sclerae anicteric. Mucosa pink and moist without erythema or exudate. Skin: No rash, lesions noted. Chest: Lungs clear to auscultation bilat. CV: RRR, no murmurs. Abdomen: S/NT/ND with NABS. No HSM appreciated. Extremities: Pulses strong and equal bilaterally. No c/c/e. Neuro: Alert and oriented x 3. Grossly nonfocal exam. CVC: groshong Laboratory Results: Recent Labs 04/24/19 0008 04/25/19 0000 04/25/19 1700 04/26/19 0131 NA 139 139 138 141 K 3.6 3.2* 3.5 3.7 CL 109* 109* 109* 112* BICARB 24 22 23 23 BUN 11 10 10 10 CR 0.48* 0.44* 0.58* 0.52* GLU 83 86 98 85 CA 8.2* 8.5* 8.5* 7.9* AST 15 16 -- 11 ALT 12 13 -- 11 AP 104* 100* -- 89 TBILI 0.6 0.4 -- 0.5 TP 5.6* 5.9* -- 5.4* ALB 2.8* 2.8* -- 2.6* Recent Labs 04/21/19 0022 04/21/19 1655 04/22/19 0011 04/25/19 0000 04/25/19 1527 04/26/19 0124 WBC 2.14* 1.65* 0.91* < > <0.10* <0.10* <0.10* RBC 3.56* 4.00 3.92* < > 3.84* 3.80* 3.22* HB 10.1* 11.3* 10.9* < > 10.7* 10.8* 9.2* HCT 31.6* 35.0* 34.5* < > 32.7* 31.8* 27.3* PLT 162 168 161 < > 66* 58* 31* NEUTROPERC 94.0* 99.1* 96.5* -- -- -- -- LYMPHPERC 0.9* 0.9* 1.8* -- -- -- -- MONOPERC 0.0* 0.0* 0.0* -- -- -- -- BASOPERC 0.9 0.0 0.0 -- -- -- -- EOSPERC 0.5* 0.0* 1.7 -- -- -- -- < > = values in this interval not displayed. 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 Conditioning: FluCyTBI Day -6 Fludarabine 25 mg/m2 IV Day -5 Fludarabine 25 mg/m2 IV Cyclophosphamide 60 mg/kg IV Day -4 Fludarabine 25 mg/m2 IV Cyclophosphamide 60 mg/kg IV Day -3 TBI 2.0 Gy BID Day -2 TBI 2.0 Gy BID Day -1 TBI 2.0 Gy BID Day 0 *UCB transplant: ProHema-CB unit infused first Stem cell transplant: ouble cord transplant on the [employer] trial, randomized to SOC - Day 0 = 04/22/19 - s/p infusion of 0.07 x 10^6 CD34+ cells / Kg [facility] [id number] - s/p infusion of 0.1 x 10^6 CD34+ cells / Kg Donor MRN/NMDP ID:[id number] Supportive care - Transfuse to keep Hct >21% - Transfuse to keep platelets >10,000 - Neupogen to start per protocol until ANC >1500 on two consecutive days 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 CDiff and GI bacterial path panel negative. -GI viral pathogen panel PENDING -Instructed on BRAT diet (patient eating biscuits and gravy prior to diarrheal episode thi s AM) -bentyl for abd pain -if path panel negative with continued symptoms consider CT AP -if path panel negative- imodium PRN. Chemo induced nausea; controlled -zofran scheduled q12 At risk for VOD: On ursodiol, continue - ursodiol 500 m PO BID Cardiology: Hypertension: With SBP to the 180s after infusion of first product. She was given hydra lizine x 1, SBP then down to the 150s. RESOLVED -monitor PICC line associated DVT:Noted on US 01/17/19 involved both right and left UE.She comp leted 3 months ofanticoagulationwith apixiban, end date 04/14/19. Psyche/social: Depression: Stable, continue SSRI. - Lexapro 20 mg PO daily #ID Prophylaxis Herpes Zoster, recent history: Noted in December, now s/p treatment with IV acyclovirfrom a pprox 01/10 through 01/16 then transitioned to valacyclovir 1g TID to complete an additional 7 dcourse (extended for new lesions).She will continue on valacyclovir(rathern than acyc lovir)through day +365 post transplant. -Continue valacyclovir at 500mg BID Non-neutropenic fever:Noted on 04/17. She was started on cefepime, however blood cu ltures with NGTD x 72h and fevers since defervesced.She wasde-escalatedto levaquin p rophylaxis on 04/20 (although not neutropenic), no fevers since de-escalation.s/pcefepim e (04/17 - 04/20) Prophylaxis: Levofloxacin Valacyclovir + letemovir (Cord transplant) Posaconazole(Cord transpland) Pentamidine prior to discharge #Routine infectious disease testing -CMV by PCR weekly, starting after day 0. Lab Results Component Value Date CMVQUANTPCR Undetected 04/22/2019 CMVQUANTPCR Undetected 04/16/2019 -Asp. Galactomannan weekly, starting after day 0. Lab Results Component Value Date GALACTO Negative 04/25/2019 ATIF [place] [facility] [id number] Mailcode: [id number] [place] [address] ;llo artin Canchola, DO - 04/26/2019 8:09 AM PDTFormatting of this note might be different from the origin al. Date:04/26/2019 Hematologic Malignancy and Bone Marrow Transplant Attending Inpatient Progress Note: Patient s primary diagnosis: Stephenie Camarillo is a 53 year old female with a history of MDS -EB2 s/p treatment with 3 cycles of azacitadine, admitted currently for a FluCyTBI condition ed cord blood transplant on the [employer] tria, randomized to the standard of care arm, day 0 = 04/22/19. 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 - FluCyTBI conditioned double cord transplant on the [employer] [facility] trial, randomized to SOC - currently day +4. Day 0 = 04/22/19 - s/p infusion of 0.07 x 10^6 CD34+ cells / Kg Donor MRN/NMDP ID:[id number] - s/p infusion of 0.1 x 10^6 CD34+ cells / Kg Donor MRN/NMDP ID:[id number] #GVHD Prophylaxis: Prophylaxis with tacrolimus and MMF per [employer] protocol - Tacrolimus starting D-3, goal level 5-15 -MMF given at a dose of 15 mg/kg TID D-3 to D+60 # Mucositis Grade 1 Continue mouth rinses # Hemorrhoidal pain - continue zinc cream and hycrocort prn - Start Sitz baths after stooling and at least 2-3 times daily # Diarrhea likely from chemo but ddx includes infection given cramping - Check CDif if negative check stool pathogen panel - If cdif negative then PRN immodium # Chemo induced nausea - Start zofran scheduled q12 # Hypertension: With SBP to the 180s after infusion of first product. She was given hydralizine x 1, SBP t hen down to the 150s. - Improved currently. Will monitor #PICC line associated DVT: Noted on US 01/17/19 involved both right and left UE. She completed 3 months ofanticoagulationwith apixiban, end date 04/14/19. # Herpes Zoster, recent history: -Noted in December, now s/p treatment with IV acyclovirfrom approx 01/10 through 01/16 then transitioned to valacyclovir 1g TID to complete an additional 7dcourse (extended for new lesions). - She will continue on valacyclovir(rathern than acyclovir)through day +365 post transp lant. -Continue valacyclovir at 500mg BID # Depression: Stable, continue SSRI. - Lexapro 20 mg PO daily # At risk for VOD: On ursodiol, continue - ursodiol 500 m PO BID # Non-neutropenic fever: Noted on 04/17. She was started on cefepime, however blood cultures with NGTD x 72h and f fadia since defervesced.She wasde-escalatedto levaquin prophylaxis on 04/20 (althoug h not neutropenic), no fevers since de-escalation. -s/pcefepime (04/17 - 04/20) # Pancytopenia:Anticipated secondary to chemotherapy. Standard transfusion parameters as below: - transfuse 1 unit PRBC for hct <21 - transfuse 1 unit platelets for plt <10k # ID Prophylaxis - Immunocompromised secondary to chemotherapy and stem cell transplant Levofloxacin Valacyclovir + letemovir (Cord transplant) Posaconazole(Cord transpland) Pentamidine prior to discharge Other diagnoses: Patients Hospital Problem List: Active Hospital Problems 1) *MDS (myelodysplastic syndrome) (HCC) 2) Acute deep vein thrombosis (DVT) of both upper extremities (HCC) Developed while hospitalized for shingles and had PICC in 3) Immunocompromised state due to drug therapy 4) Pancytopenia (HCC) Physical Exam: Last Vitals: BP 124/57 (BP Location: Left upper arm, Patient Position: Sitting) | Pulse 78 | Temp 36.9 C (98.4 F) (Oral) | Resp 18 | Ht 1.591 m (5' 2.64") | Wt 68.7 kg (151 l b 7.3 oz) | SpO2 99% | BMI 27.14 kg/m | BSA 1.74 m 24 Hour Vital Min/Max: Systolic (24hrs), Av , Min:101 , Max:136 Diastolic (24hrs), Av, Min:52, Max:73 Pulse Min: 78 Max: 97 Temp Min: 36.5 C (97.7 F) Max: 37.1 C (98.8 F) Resp Min: 18 Max: 18 SpO2 Min: 97 % Max: 100 % Intake/Output 04/24 07 - 04/25 0700 04/25 07 - 04/26 0700 04/26 07 - 04/27 0700 P.O. 2852 1550 I.V. 140 1822 IV Piggyback 115 Total Intake 2992 3487 Urine (mL/kg/hr) 2150 (1.3) 1225 (0.7) Other 8 1730 Total Output(mL/kg) 2158 (32.1) 2955 (43) Net +834 +532 Stool 4 x Admit Weight: Last 3 Weights Weight: 68.7 kg (151 lb 7.3 oz) (04/26/19 0740) Weight: 67.3 kg (148 lb 5.9 oz) (04/25/19 6523) Weight: 67.5 kg (148 lb 13 oz) (04/24/19 9965) GENERAL: NAD A+O x 3 HEENT: MMM no lesions but early pallor to mucosa EYES: Sclera anicteric CV: RRR Pulm: CTA B Abd: soft without masses. Non tender decreased bowel sounds Skin: no rashes Extremities: no clubbing cyanosis or edema Rectal external exam: External hemorrhoids inflamed but no induration or p Line: clean dry and intact Lab/x-ray findings (as recorded in the NPP's note from today) CBC with diff last 72 hours (or 3 results) - Refreshable Recent Labs 04/25/19 0000 04/25/19 1527 04/26/19 0124 WBC <0.10* <0.10* <0.10* HB 10.7* 10.8* 9.2* HCT 32.7* 31.8* 27.3* PLT 66* 58* 31* Recent Labs 04/24/19 0008 04/25/19 0000 04/25/19 1700 04/26/19 0131 NA 139 139 138 141 K 3.6 3.2* 3.5 3.7 CL 109* 109* 109* 112* BICARB 24 22 23 23 BUN 11 10 10 10 CR 0.48* 0.44* 0.58* 0.52* GLU 83 86 98 85 CA 8.2* 8.5* 8.5* 7.9* AST 15 16 -- 11 ALT 12 13 -- 11 AP 104* 100* -- 89 TBILI 0.6 0.4 -- 0.5 TP 5.6* 5.9* -- 5.4* ALB 2.8* 2.8* -- 2.6* ANIONGAP 6 8 6 6 ANIONALBCOR 9 11 -- 9 TACROLIMUS (FK 506) Date/Time Value Ref Range Status 04/22/2019 08:50 AM 4.6 (L) 5.0 - 15.0 ng/mL Final Comment: DRAW tacro level prior to giving 0900 dose Lab Results Component Value Date CMVQUANTPCR Undetected 04/22/2019 CMVQUANTPCR Undetected 04/16/2019 Attending Physician s Total Time is 37 minutes, >50% spent counseling, coordination of ca re including reviewing the chart, examination of the patient, discussion of the disease and management of the disease and treatment side effects as well as managing orders as detailed above. DO [email or web address] Thelma De Luna ANP - 04/25/2019 5:17 PM PDTFormatting of this note might be different fr om the original. Daily [facility] Note - [facility] Attending: Seferino Canchola MD PCP: LACY Perez Hematologic Malignancy: MDS Conditioning regimen: FluCyTBI Date of transplant: 04/22/19 Donor: [facility] per [facility] Reason for admission: Scheduled admission for myeloablative chemotherapy with subsequent st em cell infusion. Subjective: Large volume diarrhea with cramping Objective: Last Vitals: BP 136/73 (BP Location: Left upper arm, Patient Position: Sitting) | Pulse 97 | Temp 36.5 C (97.7 F) (Oral) | Resp 18 | Ht 1.591 m (5' 2.64") | Wt 67.3 kg (148 l b 5.9 oz) | SpO2 100% | BMI 26.59 kg/m | BSA 1.72 m 24 Hour Vital Min/Max: Systolic (24hrs), Av , Min:104 , Max:136 Diastolic (24hrs), Av, Min:55, Max:73 Pulse Min: 83 Max: 97 Temp Min: 36.4 C (97.5 F) Max: 36.9 C (98.4 F) Resp Min: 16 Max: 18 SpO2 Min: 97 % Max: 100 % Intake/Output Summary (Last 24 hours) at 04/25/2019 1719 Last data filed at 04/25/2019 1626 Gross per 24 hour Intake 2712 ml Output 3488 ml Net -776 ml Physical Exam: General: This is a female in no acute distress. HEENT: PERRL. Sclerae anicteric. Mucosa pink and moist without erythema or exudate. Skin: No rash, lesions noted. Chest: Lungs clear to auscultation bilat. CV: RRR, no murmurs. Abdomen: S/NT/ND with NABS. No HSM appreciated. Extremities: Pulses strong and equal bilaterally. No c/c/e. Neuro: Alert and oriented x 3. Grossly nonfocal exam. CVC: groshong Laboratory Results: Recent Labs 04/22/19 2347 04/24/19 0008 04/25/19 0000 NA 141 139 139 K 3.5 3.6 3.2* CL 109* 109* 109* BICARB 27 24 22 BUN 13 11 10 CR 0.50* 0.48* 0.44* GLU 71 83 86 CA 8.0* 8.2* 8.5* AST 23 15 16 ALT 16 12 13 AP 108* 104* 100* TBILI 0.6 0.6 0.4 TP 5.9* 5.6* 5.9* ALB 3.0* 2.8* 2.8* Recent Labs 04/21/19 0022 04/21/19 1655 04/22/19 0011 04/23/19 1625 04/24/19 0008 04/25/19 0000 WBC 2.14* 1.65* 0.91* < > <0.10* <0.10* <0.10* RBC 3.56* 4.00 3.92* < > 3.96* 3.78* 3.84* HB 10.1* 11.3* 10.9* < > 11.0* 10.8* 10.7* HCT 31.6* 35.0* 34.5* < > 34.4* 32.5* 32.7* PLT 162 168 161 < > 110* 92* 66* NEUTROPERC 94.0* 99.1* 96.5* -- -- -- -- LYMPHPERC 0.9* 0.9* 1.8* -- -- -- -- MONOPERC 0.0* 0.0* 0.0* -- -- -- -- BASOPERC 0.9 0.0 0.0 -- -- -- -- EOSPERC 0.5* 0.0* 1.7 -- -- -- -- < > = values in this interval not displayed. 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 She was given hydralizine x 1, SBP then down to the 150s. - Improved currently. Will monitor #PICC line associated DVT: Noted on US 01/17/19 involved both right and left UE. She completed 3 months ofanticoagulationwith apixiban, end date 04/14/19. # Herpes Zoster, recent history: -Noted in December, now s/p treatment with IV acyclovirfrom approx 01/10 through 01/16 then transitioned to valacyclovir 1g TID to complete an additional 7dcourse (extended for new lesions). - She will continue on valacyclovir(rathern than acyclovir)through day +365 post transp lant. -Continue valacyclovir at 500mg BID # Depression: Stable, continue SSRI. - Lexapro 20 mg PO daily # At risk for VOD: On ursodiol, continue - ursodiol 500 m PO BID # Non-neutropenic fever:Noted on 04/17. She was started on cefepime, however blood cu ltures with NGTD x 72h and fevers since defervesced.She wasde-escalatedto levaquin p rophylaxis on 04/20 (although not neutropenic), no fevers since de-escalation. -s/pcefepime (04/17 - 04/20) # Pancytopenia:Anticipated secondary to chemotherapy. Standard transfusion parameters as below: - transfuse 1 unit PRBC for hct <21 - transfuse 1 unit platelets for plt <10k # ID Prophylaxis - Immunocompromised secondary to chemotherapy and stem cell transplant Levofloxacin Valacyclovir + letemovir (Cord transplant) Posaconazole(Cord transpland) Pentamidine prior to discharge #Routine infectious disease testing -CMV by PCR weekly, starting after day 0. Lab Results Component Value Date CMVQUANTPCR Undetected 04/22/2019 CMVQUANTPCR Undetected 04/16/2019 -Asp. Galactomannan weekly, starting after day 0. Lab Results Component Value Date GALACTO Negative 04/25/2019 [facility] [place] [facility] [id number] Mailcode: [id number] [place] [id number] ;llo artin Canchola, DO - 04/25/2019 11:55 AM PDTFormatting of this note might be different from the origin al. Date:04/25/2019 Hematologic Malignancy and Bone Marrow Transplant Attending Inpatient Progress Note: Patient s primary diagnosis: Stephenie Camarillo is a 53 year old female with a history of MDS -EB2 s/p treatment with 3 cycles of azacitadine, admitted currently for a FluCyTBI condition ed cord blood transplant on the [facility], randomized to the standard of care arm, day 0 = 04/22/19. 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 - FluCyTBI conditioned [facility], randomized to SOC - currently day +3. Day 0 = 04/22/19 - s/p infusion of 0.07 x 10^6 CD34+ cells / Kg Donor MRN/NMDP ID:[id number] - s/p infusion of 0.1 x 10^6 CD34+ cells / Kg Donor MRN/NMDP ID:[id number] #GVHD Prophylaxis: Prophylaxis with tacrolimus and MMF per [facility] protocol - Tacrolimus starting D-3, goal level 5-15 -MMF given at a dose of 15 mg/kg TID D-3 to D+60 # Mucositis Grade 1 Continue mouth rinses # Hemorrhoidal pain - continue zinc cream and hycrocort prn - Start Sitz baths after stooling and at least 2-3 times daily # Diarrhea likely from chemo but ddx includes infection - Check CDif if negative check stool pathogen panel - If cdif negative then PRN immodium # Chemo induced nausea - Start zofran scheduled q12 # Hypertension: With SBP to the 180s after infusion of first product. She was given hydralizine x 1, SBP t hen down to the 150s. - Improved currently. Will monitor #PICC line associated DVT: Noted on US 01/17/19 involved both right and left UE. She completed 3 months ofanticoagulationwith apixiban, end date 04/14/19. # Herpes Zoster, recent history: -Noted in December, now s/p treatment with IV acyclovirfrom approx 01/10 through 01/16 then transitioned to valacyclovir 1g TID to complete an additional 7dcourse (extended for new lesions). - She will continue on valacyclovir(rathern than acyclovir)through day +365 post transp lant. -Continue valacyclovir at 500mg BID # Depression: Stable, continue SSRI. - Lexapro 20 mg PO daily # At risk for VOD: On ursodiol, continue - ursodiol 500 m PO BID # Non-neutropenic fever:Noted on 04/17. She was started on cefepime, however blood cu ltures with NGTD x 72h and fevers since defervesced.She wasde-escalatedto levaquin p rophylaxis on 04/20 (although not neutropenic), no fevers since de-escalation. -s/pcefepime (04/17 - 04/20) # Pancytopenia:Anticipated secondary to chemotherapy. Standard transfusion parameters as below: - transfuse 1 unit PRBC for hct <21 - transfuse 1 unit platelets for plt <10k # ID Prophylaxis - Immunocompromised secondary to chemotherapy and stem cell transplant Levofloxacin Valacyclovir + letemovir (Cord transplant) Posaconazole(Cord transpland) Pentamidine prior to discharge Other diagnoses: Patients Hospital Problem List: Active Hospital Problems 1) *MDS (myelodysplastic syndrome) (HCC) 2) Acute deep vein thrombosis (DVT) of both upper extremities (HCC) Developed while hospitalized for shingles and had PICC in 3) Immunocompromised state due to drug therapy 4) Pancytopenia (HCC) Physical Exam: Last Vitals: BP 104/58 (BP Location: Left upper arm, Patient Position: Sitting) | Pulse 90 | Temp 36.5 C (97.7 F) (Oral) | Resp 18 | Ht 1.591 m (5' 2.64") | Wt 67.3 kg (148 l b 5.9 oz) | SpO2 99% | BMI 26.59 kg/m | BSA 1.72 m 24 Hour Vital Min/Max: Systolic (24hrs), Av , Min:104 , Max:122 Diastolic (24hrs), Av, Min:55, Max:72 Pulse Min: 73 Max: 90 Temp Min: 36.4 C (97.5 F) Max: 36.9 C (98.4 F) Resp Min: 16 Max: 18 SpO2 Min: 97 % Max: 99 % Intake/Output 04/23 701 - 04/24 0704/24 - 04/25 0700 04/25 07 - 04/26 0700 P.O. 2573 2852 I.V. 60 140 Total Intake 2633 2992 Urine (mL/kg/hr) 1650 (1) 2150 (1.3) 450 (1.4) Other 13 8 850 Total Output(mL/kg) 1663 (24.6) 2158 (32.1) 1300 (19.3) Net +970 +834 -1300 Urine 2 x Stool 4 x 4 x Other 1 x Admit Weight: Last 3 Weights Weight: 67.3 kg (148 lb 5.9 oz) (04/25/19 0423) Weight: 67.5 kg (148 lb 13 oz) (04/24/19 0524) Weight: 68.9 kg (151 lb 14.4 oz) (04/23/19 0425) GENERAL: NAD A+O x 3 HEENT: MMM no lesions but early pallor to mucosa EYES: Sclera anicteric CV: RRR Pulm: CTA B Abd: soft without masses. Non tender Skin: no rashes Extremities: no clubbing cyanosis or edema Rectal external exam: External hemorrhoids inflamed but no induration or p Line: clean dry and intact Lab/x-ray findings (as recorded in the NPP's note from today) CBC with diff last 72 hours (or 3 results) - Refreshable Recent Labs 04/23/19 1625 04/24/19 0008 04/25/19 0000 WBC <0.10* <0.10* <0.10* HB 11.0* 10.8* 10.7* HCT 34.4* 32.5* 32.7* PLT 110* 92* 66* Recent Labs 04/22/19 2347 04/24/19 0008 04/25/19 0000 NA 141 139 139 K 3.5 3.6 3.2* CL 109* 109* 109* BICARB 27 24 22 BUN 13 11 10 CR 0.50* 0.48* 0.44* GLU 71 83 86 CA 8.0* 8.2* 8.5* AST 23 15 16 ALT 16 12 13 AP 108* 104* 100* TBILI 0.6 0.6 0.4 TP 5.9* 5.6* 5.9* ALB 3.0* 2.8* 2.8* ANIONGAP 5 6 8 ANIONALBCOR 7 9 11 TACROLIMUS (FK 506) Date/Time Value Ref Range Status 04/22/2019 08:50 AM 4.6 (L) 5.0 - 15.0 ng/mL Final Comment: DRAW tacro level prior to giving 0900 dose Lab Results Component Value Date CMVQUANTPCR Undetected 04/22/2019 CMVQUANTPCR Undetected 04/16/2019 Attending Physician s Total Time is 36 minutes, >50% spent counseling, coordination of ca re including reviewing the chart, examination of the patient, discussion of the disease and management of the disease and treatment side effects as well as managing orders as detailed above. DO oliver [email or web address] Seferino Taylor DO - 04/24/2019 2:53 PM PDTFormatting of this note might be differen t from the original. Date:04/24/2019 Hematologic Malignancy and Bone Marrow Transplant Attending Inpatient Progress Note: Patient s primary diagnosis: Stephenie Camarillo is a 53 year old female with a history of MDS -EB2 s/p treatment with 3 cycles of azacitadine, admitted currently for a FluCyTBI condition ed cord blood transplant on the [facility], randomized to the standard of care arm, day 0 = 04/22/19. 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 - FluCyTBI conditioned double cord transplant on the [facility] trial, randomized to SOC - currently day +2. Day 0 = 04/22/19 - s/p infusion of 0.07 x 10^6 CD34+ cells / Kg Donor MRN/NMDP ID:[id number] - s/p infusion of 0.1 x 10^6 CD34+ cells / Kg Donor MRN/NMDP ID:[id number] #GVHD Prophylaxis: Prophylaxis with tacrolimus and MMF per [facility] protocol - Tacrolimus starting D-3, goal level 5-15 -MMF given at a dose of 15 mg/kg TID D-3 to D+60 # Mucositis Grade 1 Continue mouth rinses # Hemorrhoidal pain - continue zinc cream and hycrocort prn - Start Sitz baths after stooling and at least 2-3 times daily # Chemo induced nausea - Start zofran scheduled q12 # Hypertension: With SBP to the 180s after infusion of first product. She was given hydralizine x 1, SBP t hen down to the 150s. - Improved currently. Will monitor #PICC line associated DVT: Noted on US 01/17/19 involved both right and left UE. She completed 3 months ofanticoagulationwith apixiban, end date 04/14/19. # Herpes Zoster, recent history: -Noted in December, now s/p treatment with IV acyclovirfrom approx 01/10 through 01/16 then transitioned to valacyclovir 1g TID to complete an additional 7dcourse (extended for new lesions). - She will continue on valacyclovir(rathern than acyclovir)through day +365 post transp lant. -Continue valacyclovir at 500mg BID # Depression: Stable, continue SSRI. - Lexapro 20 mg PO daily # At risk for VOD: On ursodiol, continue - ursodiol 500 m PO BID # Non-neutropenic fever:Noted on 04/17. She was started on cefepime, however blood cu ltures with NGTD x 72h and fevers since defervesced.She wasde-escalatedto levaquin p rophylaxis on 04/20 (although not neutropenic), no fevers since de-escalation. -s/pcefepime (04/17 - 04/20) # Pancytopenia:Anticipated secondary to chemotherapy. Standard transfusion parameters as below: - transfuse 1 unit PRBC for hct <21 - transfuse 1 unit platelets for plt <10k # ID Prophylaxis - Immunocompromised secondary to chemotherapy and stem cell transplant Levofloxacin Valacyclovir + letemovir (Cord transplant) Posaconazole(Cord transpland) Pentamidine prior to discharge Other diagnoses: Patients Hospital Problem List: Active Hospital Problems 1) *MDS (myelodysplastic syndrome) (HCC) 2) Acute deep vein thrombosis (DVT) of both upper extremities (HCC) Developed while hospitalized for shingles and had PICC in 3) Immunocompromised state due to drug therapy 4) Pancytopenia (HCC) Physical Exam: Last Vitals: BP 113/66 (BP Location: Left upper arm, Patient Position: Sitting) | Pulse 89 | Temp 36.6 C (97.9 F) (Oral) | Resp 16 | Ht 1.591 m (5' 2.64") | Wt 67.5 kg (148 l b 13 oz) | SpO2 98% | BMI 26.67 kg/m | BSA 1.73 m 24 Hour Vital Min/Max: Systolic (24hrs), Av , Min:113 , Max:125 Diastolic (24hrs), Av, Min:65, Max:74 Pulse Min: 77 Max: 90 Temp Min: 36.5 C (97.7 F) Max: 37 C (98.6 F) Resp Min: 16 Max: 18 SpO2 Min: 96 % Max: 98 % Intake/Output 04/22 701 - 04/23 0700 04/23 07 - 04/24 0700 04/24 07 - 04/25 0700 P.O. 2466 2573 120 I.V. 170 60 30 Total Intake 2636 2633 150 Urine (mL/kg/hr) 2400 (1.5) 1650 (1) 550 (1) Other 5 13 0 Total Output(mL/kg) 2405 (34.9) 1663 (24.6) 550 (8.1) Net +231 +970 -400 Urine 2 x Stool 1 x 4 x 1 x Other 1 x Admit Weight: Last 3 Weights Weight: 67.5 kg (148 lb 13 oz) (04/24/19 05) Weight: 68.9 kg (151 lb 14.4 oz) (04/23/19 7465) Weight: 67.7 kg (149 lb 4 oz) (04/22/19 0541) GENERAL: NAD A+O x 3 HEENT: MMM no lesions but early pallor to mucosa EYES: Sclera anicteric CV: RRR Pulm: CTA B Abd: soft without masses. Non tender Skin: no rashes Extremities: no clubbing cyanosis or edema Rectal external exam: External hemorrhoids inflamed but no induration or p Line: clean dry and intact Lab/x-ray findings (as recorded in the NPP's note from today) CBC with diff last 72 hours (or 3 results) - Refreshable Recent Labs 04/21/19 1655 04/22/19 0011 04/22/198 04/23/19 1625 04/24/19 0008 WBC 1.65* 0.91* 0.13* <0.10* <0.10* HB 11.3* 10.9* 11.2* 11.0* 10.8* HCT 35.0* 34.5* 33.5* 34.4* 32.5* PLT 168 161 140* 110* 92* NEUTROPERC 99.1* 96.5* -- -- -- LYMPHPERC 0.9* 1.8* -- -- -- MONOPERC 0.0* 0.0* -- -- -- BASOPERC 0.0 0.0 -- -- -- EOSPERC 0.0* 1.7 -- -- -- Recent Labs 04/22/19 0011 04/22/19 2347 04/24/19 0008 NA 140 141 139 K 3.5 3.5 3.6 CL 107 109* 109* BICARB 26 27 24 BUN 12 13 11 CR 0.43* 0.50* 0.48* GLU 85 71 83 CA 8.0* 8.0* 8.2* AST 13 23 15 ALT 19 16 12 AP 90 108* 104* TBILI 0.4 0.6 0.6 TP 6.0* 5.9* 5.6* ALB 2.9* 3.0* 2.8* ANIONGAP 7 5 6 ANIONALBCOR 9 7 9 TACROLIMUS (FK 506) Date/Time Value Ref Range Status 04/22/2019 08:50 AM 4.6 (L) 5.0 - 15.0 ng/mL Final Comment: DRAW tacro level prior to giving 0900 dose Lab Results Component Value Date CMVQUANTPCR Undetected 04/16/2019 Attending Physician s Total Time is 36 minutes, >50% spent counseling, coordination of ca re including reviewing the chart, examination of the patient, discussion of the disease and management of the disease and treatment side effects as well as managing orders as detailed above. DO oliver [email or web address] Seferino Taylor DO - 04/23/2019 2:02 PM PDTFormatting of this note might be differen t from the original. Date:04/23/2019 Hematologic Malignancy and Bone Marrow Transplant Attending Inpatient Progress Note: Patient s primary diagnosis: Stephenie Camarillo is a 53 year old female with a history of MDS -EB2 s/p treatment with 3 cycles of azacitadine, admitted currently [facility]Cy[facility]BI [facility] [place] to the standard of care arm, day 0 = 04/22/19. Subjective/24hr Events: Hypertension with cells yesterday No fevers No rashes Mouth a little sore No nausea or vomiting No chest pain ROS otherwise negative Assessment and plan: # MDS - EB2: S/P treatment with 3 cycles of azacitadine, her pre-transplant marrow obtain ed 03/10/19 showed a normocellular marrow with trilineage dyspoiesis but no increase in blast s, <2%. Cytogenetics and FISH without abnormalities. She is admitted now for a FluCyTBI co nditioned double cord transplant on the [facility] trial, randomized to SOC, currently day +1. She underwent infusion of her double cord products today 04/22, tolerated well. Transplan t details as below: - s/p infusion of 0.07 x 10^6 CD34+ cells / Kg Donor MRN/NMDP ID:[id number] - s/p infusion of 0.1 x 10^6 CD34+ cells / Kg Donor MRN/NMDP ID:[id number] #GVHD Prophylaxis: [facility] - Tacrolimus starting D-3, goal level 5-15 -MMF given at a dose of 15 mg/kg TID D-3 to D+60 # Mucositis Grade 1 Continue mouth rinses # Hypertension: With SBP to the 180s after infusion of first product. She was given hydralizine x 1, SBP t hen down to the 150s. - Improved currently. Will monitor #PICC line associated DVT:Noted on US 01/17/19 involved both right and left UE.S he completed 3 months ofanticoagulationwith apixiban, end date 04/14. # Herpes Zoster, recent history: Noted in December, now s/p treatment with IV acyclovirfrom approx 01/10 through 01/16 then transitioned to valacyclovir 1g TID to complete an additional 7dcourse (extended for new lesions).She will continue on valacyclovir(rathern than acyclovir)through day +365 post transplant. -Continue valacyclovir at 500mg BID # Depression: Stable, continue SSRI. - Lexapro 20 mg PO daily # At risk for VOD: On ursodiol, continue - ursodiol 500 m PO BID # Non-neutropenic fever:Noted on 04/17. She was started on cefepime, however blood cu ltures with NGTD x 72h and fevers since defervesced.She wasde-escalatedto levaquin p rophylaxis on 04/20 (although not neutropenic), no fevers since de-escalation. -s/pcefepime (04/17 - 04/20) # Pancytopenia:Anticipated secondary to chemotherapy. Standard transfusion parameters as below: - transfuse 1 unit PRBC for hct <21 - transfuse 1 unit platelets for plt <10k # ID Prophylaxis - Immunocompromised secondary to chemotherapy and stem cell transplant Levofloxacin Valacyclovir + letemovir (Cord transplant) Posaconazole(Cord transpland) Pentamidine prior to discharge Other diagnoses: Patients Hospital Problem List: Active Hospital Problems 1) *MDS (myelodysplastic syndrome) (HCC) 2) Acute deep vein thrombosis (DVT) of both upper extremities (HCC) Developed while hospitalized for shingles and had PICC in 3) Immunocompromised state due to drug therapy 4) Pancytopenia (HCC) Physical Exam: Last Vitals: BP 110/70 (BP Location: Left upper arm, Patient Position: Sitting) | Pulse 95 | Temp 36.9 C (98.4 F) (Oral) | Resp 16 | Ht 1.591 m (5' 2.64") | Wt 68.9 kg (151 l b 14.4 oz) | SpO2 98% | BMI 27.22 kg/m | BSA 1.74 m 24 Hour Vital Min/Max: Systolic (24hrs), Av , Min:109 , Max:195 Diastolic (24hrs), Av, Min:54, Max:99 Pulse Min: 49 Max: 115 Temp Min: 36.5 C (97.7 F) Max: 37.4 C (99.3 F) Resp Min: 14 Max: 18 SpO2 Min: 95 % Max: 100 % Intake/Output 04/21 701 - 04/22 0704/22 - 04/23 0700 04/23 07 - 04/24 0700 P.O. 2991 2466 I.V. 80 170 Total Intake 3071 2636 Urine (mL/kg/hr) 3800 (2.3) 2400 (1.5) 350 (0.7) Other 5 Total Output(mL/kg) 3800 (56.1) 2405 (34.9) 350 (5.1) Net -729 +231 -350 Stool 1 x Admit Weight: Last 3 Weights Weight: 68.9 kg (151 lb 14.4 oz) (04/23/19 0425) Weight: 67.7 kg (149 lb 4 oz) (04/22/19 0541) Weight: 70.8 kg (156 lb) (04/21/19 0821) GENERAL: NAD A+O x 3 HEENT: MMM no lesions but early erythema and pale areas. EYES: Sclera anicteric CV: RRR Pulm: CTA B Abd: soft without masses. Non tender Skin: no rashes Extremities: no clubbing cyanosis or edema Line: clean dry and intact Lab/x-ray findings (as recorded in the NPP's note from today) CBC with diff last 72 hours (or 3 results) - Refreshable Recent Labs 04/21/19 0022 04/21/19 1655 04/22/19 0011 04/22/19 2348 WBC 2.14* 1.65* 0.91* 0.13* HB 10.1* 11.3* 10.9* 11.2* HCT 31.6* 35.0* 34.5* 33.5* PLT 162 168 161 140* NEUTROPERC 94.0* 99.1* 96.5* -- LYMPHPERC 0.9* 0.9* 1.8* -- MONOPERC 0.0* 0.0* 0.0* -- BASOPERC 0.9 0.0 0.0 -- EOSPERC 0.5* 0.0* 1.7 -- Recent Labs 04/21/19 0022 04/22/19 0011 04/22/19 2347 NA 142 140 141 K 3.5 3.5 3.5 CL 107 107 109* BICARB 29 26 27 BUN 10 12 13 CR 0.49* 0.43* 0.50* GLU 101* 85 71 CA 7.9* 8.0* 8.0* AST 14 13 23 ALT 18 19 16 AP 82 90 108* TBILI 0.3 0.4 0.6 TP 5.7* 6.0* 5.9* ALB 2.7* 2.9* 3.0* ANIONGAP 6 7 5 ANIONALBCOR 9 9 7 TACROLIMUS (FK 506) Date/Time Value Ref Range Status 04/22/2019 08:50 AM 4.6 (L) 5.0 - 15.0 ng/mL Final Comment: DRAW tacro level prior to giving 0900 dose Lab Results Component Value Date CMVQUANTPCR Undetected 04/16/2019 Attending Physician s Total Time is 36 minutes, >50% spent counseling, coordination of ca re including reviewing the chart, examination of the patient, discussion of the disease and management of the disease and treatment side effects as well as managing orders as detailed above. DO [email or web address] Analy Gonzalez, RN - 04/22/2019 1:11 PM PDTHematopoietic Progenitor Cell Infusion Record: N URSING NOTE Transplant Physician: Dr. Banks Transplant GISSEL: na Physician and GISSEL available throughout the infusion. Recipient, unit identity and all documentation from the Cell Processing Lab, which included ABO typing and antibody screen, ABO compatibility and processing were confirmed with senait petersen RN prior to initiation of the infusion. Patient was educated in regards to what to expect during the procedure and symptoms to report such as sudden changes in BP and HR, fevers, fac ial flushing and nausea/vomiting. Patient was premedicated with Tylenol, Benadryl and Hydrocortisone. Blood confirmed in all ports of central line and valve removed prior to initiation of infusion. Patient received an infusion of double cord blood stem cellintravenously through the red port of their [place] central venous catheter located in the left chest with positive blood return noted prior to and at completion of infusion. The patient received 109 mls of product. The start time was 12:03 and the infusion lasted f or 27 minutes. The patient tolerated the stem cell infusion without any issues and with vital signs monito red per policy during the infusion and after the infusion. Please see flowsheets in [employer] for details. There were no observed reactions or toxicities noted and will continue to monitor. The 2nd bag of cord blood stem cells infused after patient was re-premdicated with only tyl nole and benadryl. The patient received 106 mls of product. The start time was 1526 and the infusion lasted for 1 hour and 41 minutes. Please see epic flowsheet for details. SCT was on hold a few times due to SBP in the 190s. Per MD Nathan Banks, admin 10mg IV hydralazine-effective. Aniya Goodman MD - 04/22/2019 11:49 AM PDT Hematologic Malignancies/Bone Marrow Transplant Inpatient Attending Progress Note: ID: Stephenie Camarillo is a 53 year old female with a history of MDS-EB2 s/p treatment with 3 cycle s of azacitadine, admitted currently for a FluCyTBI conditioned cord blood transplant on the [facility], randomized to the standard of care arm, day 0 = 04/22/19. Subjective: Feels a little more tired today, but is otherwise doing well. She did manage to go and [place] yesterday, not sure she will have time today as she is getting her cells. Appetite contin ues to be a bit low, but is still drinking well. Denies nausea. 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 Cytogenetics and FISH without abnormalities. She is admitted now for a FluCyTBI co nditioned double cord transplant on the [facility] trial, randomized to SOC, currently day 0. She underwent infusion of her double cord products today 04/22, tolerated well. Transplant details as below: - s/p infusion of 0.07 x 10^6 CD34+ cells / Kg Donor MRN/NMDP ID: [id number] - s/p infusion of 0.1 x 10^6 CD34+ cells / Kg Donor MRN/NMDP ID: [id number] -GVHD Prophylaxis: Prophylaxis with tacrolimus and MMF per [facility] protocol - Tacrolimus starting D-3, goal level 5-15 -MMF given at a dose of 15 mg/kg TID D-3 to D+60 - Hypertension: With SBP to the 180s after infusion of first product. She was given hydra lizine x 1, SBP then down to the 150s. May need to start antihypertensive agent in the upco rachel days, but will monitor for another day after transplant to see where her SBP settles. - s/p hydralizine x 1 -PICC line associated DVT:Noted on US 01/17/19 involved both right and left UE.S he completed 3 months ofanticoagulationwith apixiban, end date 04/14. -Herpes Zoster, recent history: Noted in December, now s/p treatment with IV acyclovirfro m approx 01/10 through 01/16 then transitioned to valacyclovir 1g TID to complete an additiona l 7d course (extended for new lesions).She will continue on valacyclovir (rathern than a cyclovir) through day +365 post transplant. -Continue valacyclovir at 500mg BID - Depression: Stable, continue SSRI. - Lexapro 20 mg PO daily - At risk for VOD: On ursodiol, continue - ursodiol 500 m PO BID - Non-neutropenic fever:Noted on 04/17. She was started on cefepime, however blood cu ltures with NGTD x 72h and fevers since defervesced. She was de-escalated to levaquin prop hylaxis on 04/20 (although not neutropenic), no fevers since de-escalation. - s/p cefepime (04/17 - 04/20) - Pancytopenia:Anticipated secondary to chemotherapy. Standard transfusion parameters as below: - transfuse 1 unit PRBC for hct <21 - transfuse 1 unit platelets for plt <10k ID Prophylaxis - Immunocompromised secondary to chemotherapy and stem cell transplant Levofloxacin Valacyclovir + letemovir (Cord transplant) Posaconazole (Cord transpland) Pentamidine prior to discharge I have updated the problem list to reflect those problems being actively managed Principal Problem: MDS (myelodysplastic syndrome) (HCC) Active Problems: Acute deep vein thrombosis (DVT) of both upper extremities (HCC) Immunocompromised state due to drug therapy Pancytopenia (HCC) Aniya Banks MD Vitals: 24 Hour Vital Min/Max: Systolic (24hrs), Av , Min:114 , Max:156 Diastolic (24hrs), Av, Min:68, Max:91 Pulse Min: 70 Max: 95 Temp Min: 36.6 C (97.9 F) Max: 36.8 C (98.2 F) Resp Min: 16 Max: 18 SpO2 Min: 96 % Max: 99 % Intake/Output Summary (Last 24 hours) at 04/22/2019 1149 Last data filed at 04/22/2019 0900 Gross per 24 hour Intake 2046 ml Output 2905 ml Net -859 ml Labs: CBC with diff last 72 hours (or 3 results) - Refreshable Recent Labs 04/21/19 0022 04/21/19 1655 04/22/19 0011 WBC 2.14* 1.65* 0.91* HB 10.1* 11.3* 10.9* HCT 31.6* 35.0* 34.5* PLT 162 168 161 NEUTROPERC 94.0* 99.1* 96.5* LYMPHPERC 0.9* 0.9* 1.8* MONOPERC 0.0* 0.0* 0.0* BASOPERC 0.9 0.0 0.0 EOSPERC 0.5* 0.0* 1.7 Lab Results Component Value Date NA 140 04/22/2019 K 3.5 04/22/2019 CL 107 04/22/2019 BICARB 26 04/22/2019 BUN 12 04/22/2019 EGFRAFRICAN >60 04/22/2019 EGFRNONAFR >60 04/22/2019 CR 0.43 04/22/2019 GLU 85 04/22/2019 CA 8.0 04/22/2019 ANIONGAP 7 04/22/2019 ANIONALBCOR 9 04/22/2019 Lab Results Component Value Date AST 13 04/22/2019 ALT 19 04/22/2019 TBILI 0.4 04/22/2019 AP 90 04/22/2019 TP 6.0 04/22/2019 ALB 2.9 04/22/2019 Medications: acetaminophen (TYLENOL) tablet 325-650 mg, 325-650 mg, oral, Q4H PRN acetaminophen (TYLENOL) tablet 650 mg, 650 mg, oral, ONE TIME DURING VISIT acetaminophen (TYLENOL) tablet 650 mg, 650 mg, oral, ONE TIME DURING VISIT [START ON 04/23/2019] acyclovir (ZOVIRAX) 450 mg in NaCl 0.9 % (NS) IV, 450 mg, intravenous , Q12H PRN alteplase (CATHFLO ACTIVASE) injection 2 mg, 2 mg, Intracatheter, PRN aluminum-magnesium hydroxide-simethicone (MAALOX; MYLANTA) 200-200-20 mg/5 mL suspension 30 mL, 30 mL, oral, Q3H PRN diphenhydrAMINE (BENADRYL) capsule 50 mg, 50 mg, oral, ONE TIME DURING VISIT diphenhydrAMINE (BENADRYL) injection 25-50 mg, 25-50 mg, intravenous, PRN diphenhydrAMINE (BENADRYL) injection 50 mg, 50 mg, intravenous, ONE TIME DURING VISIT diphenhydrAMINE (BENADRYL) injection 50 mg, 50 mg, intravenous, PRN diphenhydrAMINE (BENADRYL) injection 50 mg, 50 mg, intravenous, ONE TIME DURING VISIT [id number] (SPECIAL MOUTHWASH) suspension (compound) 10-15 mL, 10-15 mL, oral, Q1H PRN DOPamine (INOTROPIN) 400 mg/250 ml (1.6 mg/mL) IV infusion (RTU), 5 mcg/kg/min (Order-Speci fic), intravenous, PRN EPINEPHrine HCl (PF) (ADRENALIN PF) injection 0.3 mg, 0.3 mg, subcutaneous, PRN EPINEPHrine HCl (PF) (ADRENALIN PF) injection 0.3 mg, 0.3 mg, intramuscular, PRN escitalopram oxalate (LEXAPRO) tablet 20 mg, 20 mg, oral, DAILY famotidine (PEPCID) injection 20 mg, 20 mg, intravenous, PRN famotidine (PEPCID) tablet 20 mg, 20 mg, oral, BID fentaNYL (SUBLIMAZE) injection 25-50 mcg, 25-50 mcg, intravenous, Q1H PRN [START ON 04/23/2019] filgrastim-sndz (ZARXIO) injection 300 mcg, 5 mcg/kg (Treatment Plan Recorded), subcutaneous, QPM AT 1700 glycerin-mineral oil (LUBRIDERM SENSITIVE LANOLIN FREE) lotion, , topical, Q2H PRN haloperidol (HALDOL) tablet 0.5-1.5 mg, 0.5-1.5 mg, oral, Q4H PRN haloperidol lactate (HALDOL) injection 0.5-1.5 mg, 0.5-1.5 mg, intravenous, Q4H PRN hydrocortisone (CORTEF) tablet 100 mg, 100 mg, oral, ONE TIME DURING VISIT hydrocortisone (PROCTOZONE) 2.5 % rectal cream, , topical, TID hydrocortisone sodium succinate (PF) (SOLU-CORTEF) injection 100 mg, 100 mg, intravenous, P RN hydrocortisone sodium succinate (PF) (SOLU-CORTEF) injection 100 mg, 100 mg, intravenous, P RN hydrocortisone sodium succinate (PF) (SOLU-CORTEF) injection 50 mg, 50 mg, intravenous, ONE TIME DURING VISIT HYDROmorphone (DILAUDID) injection 0.2-0.5 mg, 0.2-0.5 mg, intravenous, Q1H PRN [START ON 04/23/2019] letermovir (PREVYMIS) tablet 480 mg, 480 mg, oral, DAILY levoFLOXacin (LEVAQUIN) tablet 500 mg, 500 mg, oral, DAILY loperamide (IMODIUM) capsule 2 mg, 2 mg, oral, PRN magnesium sulfate in water IV (RTU) 4 g, 4 g, intravenous, PRN magnesium sulfate IV 8 g, 8 g, intravenous, PRN menthol (sugar free) (COUGH DROP) lozenge 5 mg, 1 lozenge, oral, Q1H PRN mycophenolate (CELLCEPT) tablet 1,000 mg, 15 mg/kg (Treatment Plan Recorded), oral, TID nystatin-zinc oxide-lidocaine (NDX) ointment (compound), , topical, Q1H PRN ondansetron (ZOFRAN) injection 4 mg, 4 mg, intravenous, Q12H PRN oxyCODONE (immediate release) (ROXICODONE) tablet 5-15 mg, 5-15 mg, oral, Q4H PRN pentamidine (PENTAM) IV 300 mg, 300 mg, intravenous, Q4W posaconazole DR (NOXAFIL) tablet 300 mg, 300 mg, oral, BID FOLLOWED BY [START ON 2018] posaconazole DR (NOXAFIL) tablet 300 mg, 300 mg, oral, DAILY potassium chloride IV (central line) 40 mEq, 40 mEq, intravenous, PRN OR potassium chlo ride IV (central line) 60 mEq, 60 mEq, intravenous, PRN potassium chloride SR (KLOR-CON) tablet 40 mEq, 40 mEq, oral, PRN potassium phosphate IV (CENTRAL LINE) 30 mmol, 30 mmol, intravenous, PRN OR potassium p hosphate IV (CENTRAL LINE) 40 mmol, 40 mmol, intravenous, PRN prochlorperazine (COMPAZINE) injection 5-10 mg, 5-10 mg, intravenous, Q6H PRN prochlorperazine (COMPAZINE) tablet 5-10 mg, 5-10 mg, oral, Q6H PRN promethazine (PHENERGAN) suppository 25 mg, 25 mg, rectal, Q12H PRN ramelteon (ROZEREM) tablet 8 mg, 8 mg, oral, HS PRN saliva substitute (MOUTH KOTE) spray 1 spray, 1 spray, oral, Q1H PRN senna-docusate (SENOKOT S) 8.6-50 mg 1-2 tablet, 1-2 tablet, oral, Q12H PRN sodium chloride 0.9 % (NS) IV infusion, 500-1,000 mL, intravenous, PRN sodium phosphate IV 30 mmol, 30 mmol, intravenous, PRN sodium phosphate IV 40 mmol, 40 mmol, intravenous, PRN tacrolimus capsule 2 mg, 2 mg, oral, BID ursodiol (ACTIGALL) tablet 500 mg, 500 mg, oral, BID valACYclovir (VALTREX) tablet 500 mg, 500 mg, oral, BID Aniya Goodman MD - 04/21/2019 12:59 PM PDT Hematologic Malignancies/Bone Marrow Transplant Inpatient Attending Progress Note: ID: Stephenie Camarillo is a 53 year old female with a history of MDS-EB2 s/p treatment with 3 cycle s of azacitadine, admitted currently for a FluCyTBI conditioned cord blood transplant on the [facility], randomized to the standard of care arm. Subjective: Stephenie says she feels a little more tired today, has been spending more time sitting in bed and resting. Her appetite is a little lower and food is tasting a little off, but she is s till trying to get in enough calories. Denies current nausea. Excited she will be getting her transplant tomorrow. 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 Cytogenetics and FISH without abnormalities. She is admitted now for a FluCyTBI cond itioned double cord transplant on the [facility] trial, randomized to SOC, currently day -1. Sh e will complete conditioning as below: - FluCyTBI conditioning - fludarabine 25 mg/m2 IV days -7, -6, -5 - cyclophosphamide 60 mg/kg IV days -7, -6 - TBI days -4, -3, -2, -1 - day 0 = 04/22 - GVHD Prophylaxis: Prophylaxis with tacrolimus and MMF per [facility] protocol - Tacrolimus starting D-3, goal level 5-15 - MMF given at a dose of 15 mg/kg TID D-3 to D+60 - PICC line associated DVT: Noted on US 01/17/19 involved both right and left UE. She com pleted 3 months of anticoagulation with apixiban, end date 04/14. - Herpes Zoster, recent history: Noted in December, now s/p treatment with IV acyclovir from a pprox 01/10 through 01/16 then transitioned to valacyclovir 1g TID to complete an additional 7 d course (extended for new lesions). She will continue on valacyclovir (rathern than acyclo vir) through day +365 post transplant. -Continue valacyclovir at 500mg BID - At risk for VOD: On ursodiol, continue - ursodiol 500 m PO BID - Non-neutropenic fever: Noted on 04/17. She was started on cefepime, however blood cultu res with NGTD x 72h and fevers since defervesced. She was de-escalated to levaquin prophyla xis on 04/20 (although not neutropenic), no fevers since de-escalation. - s/p cefepime (04/17 - 04/20) - Pancytopenia: Anticipated secondary to chemotherapy. Standard transfusion parameters as below: - transfuse 1 unit PRBC for hct < 21 - transfuse 1 unit platelets for plt < 10k ID Prophylaxis - Immunocompromised secondary to chemotherapy and stem cell transplant Levofloxacin when ANC < 500 Valacyclovir + letemovir (Cord transplant) Posaconazole (Cord transpland) Pentamidine prior to discharge I have updated the problem list to reflect those problems being actively managed Principal Problem: MDS (myelodysplastic syndrome) (HCC) Active Problems: Acute deep vein thrombosis (DVT) of both upper extremities (HCC) Immunocompromised state due to drug therapy Pancytopenia (HCC) Principal Problem: MDS (myelodysplastic syndrome) (HCC) Active Problems: Acute deep vein thrombosis (DVT) of both upper extremities (HCC) Immunocompromised state due to drug therapy Pancytopenia (HCC) Aniya Banks MD Vitals: 24 Hour Vital Min/Max: Systolic (24hrs), Av , Min:123 , Max:157 Diastolic (24hrs), Av, Min:71, Max:88 Pulse Min: 59 Max: 86 Temp Min: 36.5 C (97.7 F) Max: 36.9 C (98.4 F) Resp Min: 16 Max: 16 SpO2 Min: 97 % Max: 99 % Intake/Output Summary (Last 24 hours) at 04/21/2019 1300 Last data filed at 04/21/2019 1200 Gross per 24 hour Intake 3790 ml Output 5130 ml Net -1340 ml Labs: CBC with diff last 72 hours (or 3 results) - Refreshable Recent Labs 04/20/19 0127 04/20/19 1540 04/21/19 0022 WBC 3.29* 2.97* 2.14* HB 10.0* 10.7* 10.1* HCT 31.6* 33.4* 31.6* PLT 169 178 162 NEUTROPERC 96.7* 97.0* 94.0* LYMPHPERC 0.9* 0.3* 0.9* MONOPERC 0.3* 0.0* 0.0* BASOPERC 0.3 0.3 0.9 EOSPERC 1.2 0.0* 0.5* Lab Results Component Value Date NA 142 04/21/2019 K 3.5 04/21/2019 CL 107 04/21/2019 BICARB 29 04/21/2019 BUN 10 04/21/2019 EGFRAFRICAN >60 04/21/2019 EGFRNONAFR >60 04/21/2019 CR 0.49 04/21/2019 GLU 101 04/21/2019 CA 7.9 04/21/2019 ANIONGAP 6 04/21/2019 ANIONALBCOR 9 04/21/2019 Lab Results Component Value Date AST 14 04/21/2019 ALT 18 04/21/2019 TBILI 0.3 04/21/2019 AP 82 04/21/2019 TP 5.7 04/21/2019 ALB 2.7 04/21/2019 Medications: acetaminophen (TYLENOL) tablet 325-650 mg, 325-650 mg, oral, Q4H PRN [START ON 04/22/2019] acetaminophen (TYLENOL) tablet 650 mg, 650 mg, oral, ONE TIME DURING VISIT [START ON 04/22/2019] acetaminophen (TYLENOL) tablet 650 mg, 650 mg, oral, ONE TIME DURING VISIT [START ON 04/23/2019] acyclovir (ZOVIRAX) 450 mg in NaCl 0.9 % (NS) IV, 450 mg, intravenous , Q12H PRN alteplase (CATHFLO ACTIVASE) injection 2 mg, 2 mg, Intracatheter, PRN aluminum-magnesium hydroxide-simethicone (MAALOX; MYLANTA) 200-200-20 mg/5 mL suspension 30 mL, 30 mL, oral, Q3H PRN [START ON 04/22/2019] diphenhydrAMINE (BENADRYL) capsule 50 mg, 50 mg, oral, ONE TIME DURIN G VISIT [START ON 04/22/2019] diphenhydrAMINE (BENADRYL) injection 25-50 mg, 25-50 mg, intravenous, PRN [START ON 04/22/2019] diphenhydrAMINE (BENADRYL) injection 50 mg, 50 mg, intravenous, ONE T TRUNG DURING VISIT [START ON 04/22/2019] diphenhydrAMINE (BENADRYL) injection 50 mg, 50 mg, intravenous, PRN [START ON 04/22/2019] diphenhydrAMINE (BENADRYL) injection 50 mg, 50 mg, intravenous, ONE T TRUNG DURING VISIT [id number] (SPECIAL MOUTHWASH) suspension (compound) 10-15 mL, 10-15 mL, oral, Q1H PRN [START ON 04/22/2019] DOPamine (INOTROPIN) 400 mg/250 ml (1.6 mg/mL) IV infusion (RTU), 5 m cg/kg/min (Order-Specific), intravenous, PRN [START ON 04/22/2019] EPINEPHrine HCl (PF) (ADRENALIN PF) injection 0.3 mg, 0.3 mg, subcuta neous, PRN [START ON 04/22/2019] EPINEPHrine HCl (PF) (ADRENALIN PF) injection 0.3 mg, 0.3 mg, intramu scular, PRN escitalopram oxalate (LEXAPRO) tablet 20 mg, 20 mg, oral, DAILY [START ON 04/22/2019] famotidine (PEPCID) injection 20 mg, 20 mg, intravenous, PRN famotidine (PEPCID) tablet 20 mg, 20 mg, oral, BID fentaNYL (SUBLIMAZE) injection 25-50 mcg, 25-50 mcg, intravenous, Q1H PRN [START ON 04/23/2019] filgrastim-sndz (ZARXIO) injection 300 mcg, 5 mcg/kg (Treatment Plan Recorded), subcutaneous, QPM AT 1700 glycerin-mineral oil (LUBRIDERM SENSITIVE LANOLIN FREE) lotion, , topical, Q2H PRN haloperidol (HALDOL) tablet 0.5-1.5 mg, 0.5-1.5 mg, oral, Q4H PRN haloperidol lactate (HALDOL) injection 0.5-1.5 mg, 0.5-1.5 mg, intravenous, Q4H PRN [START ON 04/22/2019] hydrocortisone (CORTEF) tablet 100 mg, 100 mg, oral, ONE TIME DURING VISIT [START ON 04/22/2019] hydrocortisone sodium succinate (PF) (SOLU-CORTEF) injection 100 mg, 100 mg, intravenous, PRN [START ON 04/22/2019] hydrocortisone sodium succinate (PF) (SOLU-CORTEF) injection 100 mg, 100 mg, intravenous, PRN [START ON 04/22/2019] hydrocortisone sodium succinate (PF) (SOLU-CORTEF) injection 50 mg, 5 0 mg, intravenous, ONE TIME DURING VISIT HYDROmorphone (DILAUDID) injection 0.2-0.5 mg, 0.2-0.5 mg, intravenous, Q1H PRN [START ON 04/23/2019] letermovir (PREVYMIS) tablet 480 mg, 480 mg, oral, DAILY levoFLOXacin (LEVAQUIN) tablet 500 mg, 500 mg, oral, DAILY loperamide (IMODIUM) capsule 2 mg, 2 mg, oral, PRN magnesium sulfate in water IV (RTU) 4 g, 4 g, intravenous, PRN magnesium sulfate IV 8 g, 8 g, intravenous, PRN menthol (sugar free) (COUGH DROP) lozenge 5 mg, 1 lozenge, oral, Q1H PRN mycophenolate (CELLCEPT) tablet 1,000 mg, 15 mg/kg (Treatment Plan Recorded), oral, TID nystatin-zinc oxide-lidocaine (NDX) ointment (compound), , topical, Q1H PRN ondansetron (ZOFRAN) injection 4 mg, 4 mg, intravenous, Q12H PRN ondansetron ODT (ZOFRAN ODT) tablet 8 mg, 8 mg, oral, Q12H oxyCODONE (immediate release) (ROXICODONE) tablet 5-15 mg, 5-15 mg, oral, Q4H PRN pentamidine (PENTAM) IV 300 mg, 300 mg, intravenous, Q4W [START ON 04/22/2019] posaconazole DR (NOXAFIL) tablet 300 mg, 300 mg, oral, BID FOLLOWED BY [START ON 04/23/2019] posaconazole DR (NOXAFIL) tablet 300 mg, 300 mg, oral, DAILY potassium chloride IV (central line) 40 mEq, 40 mEq, intravenous, PRN OR potassium chlo ride IV (central line) 60 mEq, 60 mEq, intravenous, PRN potassium chloride SR (KLOR-CON) tablet 40 mEq, 40 mEq, oral, PRN potassium phosphate IV (CENTRAL LINE) 30 mmol, 30 mmol, intravenous, PRN OR potassium p hosphate IV (CENTRAL LINE) 40 mmol, 40 mmol, intravenous, PRN prochlorperazine (COMPAZINE) injection 5-10 mg, 5-10 mg, intravenous, Q6H PRN prochlorperazine (COMPAZINE) tablet 5-10 mg, 5-10 mg, oral, Q6H PRN promethazine (PHENERGAN) suppository 25 mg, 25 mg, rectal, Q12H PRN ramelteon (ROZEREM) tablet 8 mg, 8 mg, oral, HS PRN saliva substitute (MOUTH KOTE) spray 1 spray, 1 spray, oral, Q1H PRN senna-docusate (SENOKOT S) 8.6-50 mg 1-2 tablet, 1-2 tablet, oral, Q12H PRN [START ON 04/22/2019] sodium chloride 0.9 % (NS) IV infusion, 500-1,000 mL, intravenous, WA N sodium phosphate IV 30 mmol, 30 mmol, intravenous, PRN sodium phosphate IV 40 mmol, 40 mmol, intravenous, PRN tacrolimus capsule 2 mg, 2 mg, oral, BID ursodiol (ACTIGALL) tablet 500 mg, 500 mg, oral, BID valACYclovir (VALTREX) tablet 500 mg, 500 mg, oral, BID Aniya Goodman MD - 04/20/2019 3:05 PM PDT Hematologic Malignancies/Bone Marrow Transplant Inpatient Attending Progress Note: ID: Stephenie Camarillo is a 53 year old female with a history of MDS-EB2 s/p treatment with 3 cycle s of azacitadine, admitted currently for a FluCyTBI conditioned cord blood transplant on the [facility], randomized to the standard of care arm. Subjective: Feeling well today, says she is tolerating her chemotherapy well thus far. She says she is noticing that some foods taste odd, but she is still eating and drinking well. Denies naus ea. Has been up and walking in the hallways, says she wants to keep up her strength as long as she can. No questions at this time. 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 Cytogenetics and FISH without abnormalities. She is admitted now for a FluCyTBI cond itioned double cord transplant on the [facility] trial, randomized to SOC, currently day -2. Sh e will complete conditioning as below: - FluCyTBI conditioning - fludarabine 25 mg/m2 IV days -7, -6, -5 - cyclophosphamide 60 mg/kg IV days -7, -6 - TBI days -4, -3, -2, -1 - day 0 = 04/22 - GVHD Prophylaxis: Prophylaxis with tacrolimus and MMF per [facility] protocol - Tacrolimus starting D-3, goal level 5-15 - MMF given at a dose of 15 mg/kg TID D-3 to D+60 - PICC line associated DVT: Noted on US 01/17/19 involved both right and left UE. She com pleted 3 months of anticoagulation with apixiban, end date 04/14. - Herpes Zoster, recent history: Noted in December, now s/p treatment with IV acyclovir from a pprox 01/10 through 01/16 then transitioned to valacyclovir 1g TID to complete an additional 7 d then decreased to 500mg BID for 2 days, then back up to 1g TID for new lesions. She will continue on valacyclovir through day +365 post transplant. -Continue valacyclovir at 500mg BID - At risk for VOD: On ursodiol, continue - ursodiol 500 m PO BID - Non-neutropenic fever: Noted on 04/17. She was started on cefepime, however blood cultu res with NGTD x 72h and fevers since defervesced. Will de-escalate to levaquin prophylaxis, she is still not yet neutropenic. - discontinue cefepime (04/17 - 04/20) - Pancytopenia: Anticipated secondary to chemotherapy. Standard transfusion parameters as below: - transfuse 1 unit PRBC for hct < 21 - transfuse 1 unit platelets for plt < 10k ID Prophylaxis - Immunocompromised secondary to chemotherapy and stem cell transplant Valacyclovir + letemovir (Cord transplant) Posaconazole Pentamidine prior to discharge Levofloxacin I have updated the problem list to reflect those problems being actively managed Principal Problem: MDS (myelodysplastic syndrome) (HCC) Active Problems: Acute deep vein thrombosis (DVT) of both upper extremities (HCC) Immunocompromised state due to drug therapy Pancytopenia (HCC) Aniya Banks MD Vitals: 24 Hour Vital Min/Max: Systolic (24hrs), Av , Min:129 , Max:170 Diastolic (24hrs), Av, Min:67, Max:84 Pulse Min: 59 Max: 95 Temp Min: 36.4 C (97.5 F) Max: 37 C (98.6 F) Resp Min: 16 Max: 18 SpO2 Min: 95 % Max: 99 % Intake/Output Summary (Last 24 hours) at 04/20/2019 1505 Last data filed at 04/20/2019 1300 Gross per 24 hour Intake 3240 ml Output 3455 ml Net -215 ml Labs: CBC with diff last 72 hours (or 3 results) - Refreshable Recent Labs 04/19/19 0133 04/19/19 1525 04/20/19 0127 WBC 5.36 4.84 3.29* HB 10.0* 10.9* 10.0* HCT 31.7* 34.3* 31.6* PLT 159 192 169 NEUTROPERC 97.9* 98.8* 96.7* LYMPHPERC 1.1* 0.4* 0.9* MONOPERC 0.2* 0.0* 0.3* BASOPERC 0.0 0.2 0.3 EOSPERC 0.4* 0.0* 1.2 Lab Results Component Value Date NA 142 04/20/2019 K 3.1 04/20/2019 CL 107 04/20/2019 BICARB 29 04/20/2019 BUN 12 04/20/2019 EGFRAFRICAN >60 04/20/2019 EGFRNONAFR >60 04/20/2019 CR 0.52 04/20/2019 GLU 84 04/20/2019 CA 7.9 04/20/2019 ANIONGAP 6 04/20/2019 ANIONALBCOR 9 04/20/2019 Lab Results Component Value Date AST 18 04/20/2019 ALT 20 04/20/2019 TBILI 0.4 04/20/2019 AP 90 04/20/2019 TP 5.5 04/20/2019 ALB 2.7 04/20/2019 Medications: acetaminophen (TYLENOL) tablet 325-650 mg, 325-650 mg, oral, Q4H PRN [START ON 04/22/2019] acetaminophen (TYLENOL) tablet 650 mg, 650 mg, oral, ONE TIME DURING VISIT [START ON 04/22/2019] acetaminophen (TYLENOL) tablet 650 mg, 650 mg, oral, ONE TIME DURING VISIT [START ON 04/23/2019] acyclovir (ZOVIRAX) 450 mg in NaCl 0.9 % (NS) IV, 450 mg, intravenous , Q12H PRN allopurinol (ZYLOPRIM) tablet 300 mg, 300 mg, oral, DAILY alteplase (CATHFLO ACTIVASE) injection 2 mg, 2 mg, Intracatheter, PRN aluminum-magnesium hydroxide-simethicone (MAALOX; MYLANTA) 200-200-20 mg/5 mL suspension 30 mL, 30 mL, oral, Q3H PRN dexAMETHasone (DECADRON) tablet 12 mg, 12 mg, oral, Q24H [START ON 04/22/2019] diphenhydrAMINE (BENADRYL) capsule 50 mg, 50 mg, oral, ONE TIME DURIN G VISIT [START ON 04/22/2019] diphenhydrAMINE (BENADRYL) injection 25-50 mg, 25-50 mg, intravenous, PRN [START ON 04/22/2019] diphenhydrAMINE (BENADRYL) injection 50 mg, 50 mg, intravenous, ONE T TRUNG DURING VISIT [START ON 04/22/2019] diphenhydrAMINE (BENADRYL) injection 50 mg, 50 mg, intravenous, PRN [START ON 04/22/2019] diphenhydrAMINE (BENADRYL) injection 50 mg, 50 mg, intravenous, ONE T TRUNG DURING VISIT [id number] (SPECIAL MOUTHWASH) suspension (compound) 10-15 mL, 10-15 mL, oral, Q1H PRN [START ON 04/22/2019] DOPamine (INOTROPIN) 400 mg/250 ml (1.6 mg/mL) IV infusion (RTU), 5 m cg/kg/min (Order-Specific), intravenous, PRN [START ON 04/22/2019] EPINEPHrine HCl (PF) (ADRENALIN PF) injection 0.3 mg, 0.3 mg, subcuta neous, PRN [START ON 04/22/2019] EPINEPHrine HCl (PF) (ADRENALIN PF) injection 0.3 mg, 0.3 mg, intramu scular, PRN escitalopram oxalate (LEXAPRO) tablet 20 mg, 20 mg, oral, DAILY [START ON 04/22/2019] famotidine (PEPCID) injection 20 mg, 20 mg, intravenous, PRN famotidine (PEPCID) tablet 20 mg, 20 mg, oral, BID fentaNYL (SUBLIMAZE) injection 25-50 mcg, 25-50 mcg, intravenous, Q1H PRN [START ON 04/23/2019] filgrastim-sndz (ZARXIO) injection 300 mcg, 5 mcg/kg (Treatment Plan Recorded), subcutaneous, QPM AT 1700 glycerin-mineral oil (LUBRIDERM SENSITIVE LANOLIN FREE) lotion, , topical, Q2H PRN haloperidol (HALDOL) tablet 0.5-1.5 mg, 0.5-1.5 mg, oral, Q4H PRN haloperidol lactate (HALDOL) injection 0.5-1.5 mg, 0.5-1.5 mg, intravenous, Q4H PRN [START ON 04/22/2019] hydrocortisone (CORTEF) tablet 100 mg, 100 mg, oral, ONE TIME DURING VISIT [START ON 04/22/2019] hydrocortisone sodium succinate (PF) (SOLU-CORTEF) injection 100 mg, 100 mg, intravenous, PRN [START ON 04/22/2019] hydrocortisone sodium succinate (PF) (SOLU-CORTEF) injection 100 mg, 100 mg, intravenous, PRN [START ON 04/22/2019] hydrocortisone sodium succinate (PF) (SOLU-CORTEF) injection 50 mg, 5 0 mg, intravenous, ONE TIME DURING VISIT HYDROmorphone (DILAUDID) injection 0.2-0.5 mg, 0.2-0.5 mg, intravenous, Q1H PRN [START ON 04/23/2019] letermovir (PREVYMIS) tablet 480 mg, 480 mg, oral, DAILY levoFLOXacin (LEVAQUIN) tablet 500 mg, 500 mg, oral, DAILY loperamide (IMODIUM) capsule 2 mg, 2 mg, oral, PRN magnesium sulfate in water IV (RTU) 4 g, 4 g, intravenous, PRN magnesium sulfate IV 8 g, 8 g, intravenous, PRN menthol (sugar free) (COUGH DROP) lozenge 5 mg, 1 lozenge, oral, Q1H PRN mycophenolate (CELLCEPT) tablet 1,000 mg, 15 mg/kg (Treatment Plan Recorded), oral, TID nystatin-zinc oxide-lidocaine (NDX) ointment (compound), , topical, Q1H PRN ondansetron (ZOFRAN) injection 4 mg, 4 mg, intravenous, Q12H PRN ondansetron ODT (ZOFRAN ODT) tablet 8 mg, 8 mg, oral, Q12H oxyCODONE (immediate release) (ROXICODONE) tablet 5-15 mg, 5-15 mg, oral, Q4H PRN pentamidine (PENTAM) IV 300 mg, 300 mg, intravenous, Q4W [START ON 04/22/2019] posaconazole DR (NOXAFIL) tablet 300 mg, 300 mg, oral, BID FOLLOWED BY [START ON 04/23/2019] posaconazole DR (NOXAFIL) tablet 300 mg, 300 mg, oral, DAILY potassium chloride IV (central line) 40 mEq, 40 mEq, intravenous, PRN OR potassium chlo ride IV (central line) 60 mEq, 60 mEq, intravenous, PRN potassium chloride SR (KLOR-CON) tablet 40 mEq, 40 mEq, oral, PRN potassium phosphate IV (CENTRAL LINE) 30 mmol, 30 mmol, intravenous, PRN OR potassium p hosphate IV (CENTRAL LINE) 40 mmol, 40 mmol, intravenous, PRN prochlorperazine (COMPAZINE) injection 5-10 mg, 5-10 mg, intravenous, Q6H PRN prochlorperazine (COMPAZINE) tablet 5-10 mg, 5-10 mg, oral, Q6H PRN promethazine (PHENERGAN) suppository 25 mg, 25 mg, rectal, Q12H PRN ramelteon (ROZEREM) tablet 8 mg, 8 mg, oral, HS PRN saliva substitute (MOUTH KOTE) spray 1 spray, 1 spray, oral, Q1H PRN senna-docusate (SENOKOT S) 8.6-50 mg 1-2 tablet, 1-2 tablet, oral, Q12H PRN [START ON 04/22/2019] sodium chloride 0.9 % (NS) IV infusion, 500-1,000 mL, intravenous, WA N sodium phosphate IV 30 mmol, 30 mmol, intravenous, PRN sodium phosphate IV 40 mmol, 40 mmol, intravenous, PRN tacrolimus capsule 2 mg, 2 mg, oral, BID ursodiol (ACTIGALL) tablet 500 mg, 500 mg, oral, BID valACYclovir (VALTREX) tablet 500 mg, 500 mg, oral, BID Sukhi Rios MD - 04/19/2019 4:35 PM PDT BMT/Leukemia Service Attending Progress Note [facility] Stephenie Camarillo is a 53 y.o. female Patient Active Problem List Diagnosis MDS (myelodysplastic syndrome) (HCC) Acute deep vein thrombosis (DVT) of both upper extremities (HCC) Stem cell transplant candidate Date: 04/19/2019 Day: -3. Diagnosis: Myelodysplasia; patient admitted for cord blood transplantation procedure GAMIDA TRIAL Subjective: No ongoing symptoms of fluid overload. No further c/o shortness of breath repo rted with exertion. Markedly improved by pt report; No chest pain. Tolerating TNI without no nausea or vomiting or diarrhea. Tolerated chemotherapy well. No symptoms of active infection. No bleeding. ROS: remainder is negative PFSH: non-contributory Exam: Last Vitals: BP 129/75 (BP Location: Left upper arm, Patient Position: Sitting) | Pulse 95 | Temp 36.6 C (97.9 F) (Oral) | Resp 16 | Ht 1.591 m (5' 2.64") | Wt 72.3 kg (159 l b 6.3 oz) | SpO2 95% | BMI 28.56 kg/m | BSA 1.79 m 24 hour Vitals min/max : Systolic (24hrs), Av , Min:115 , Max:132 Diastolic (24hrs), Av, Min:53, Max:75 Intake/Output 04/17 07 - 04/18 0700 04/18 07 - 04/19 0700 04/19 07 - 04/20 0700 P.O. 3320 2160 1500 I.V. 1757.5 477 IV Piggyback 273.4 280 Total Intake 5350.9 2917 1500 Urine (mL/kg/hr) 5475 (3.1) 6925 (4) 825 (1.2) Other 5 Total Output(mL/kg) 5475 (73.9) 6930 (95.9) 825 (11.4) Net -124.1 -4013 +675 Temp (24hrs), Av.1 C (98.8 F), Min:36.6 C (97.9 F), Max:37.7 C (99.9 F) General: not toxic appearing; got haircut Skin: no rash and catheter site well dressed but no oozing at the exit site. No tenderness to palpation directly Eyes: normal, PERRLA and EOM's intact Mouth: normal mucosa and no oral lesions Neck: supple; no JVD appreciated Lymph: No palpable peripheral adenopathy Chest: No further crackles heard on auscultation Heart: RRR, no murmur, S1/S2 normal Abdomen: Soft and nontender without masses or hepatosplenomegaly Extrem: no pretibial/pedal edema Neuro: alert, oriented x 3, cranial nerves intact, motor/sens non-focal Pain Scale (0-10): 0 Lab/X-ray findings: CBC with diff last 72 hours (or 3 results) Recent Labs 04/18/19204/18/19 1740 04/19/1913204/19/19 1525 WBC 8.72 6.91 5.36 4.84 HB 10.0* 10.1* 10.0* 10.9* HCT 30.9* 31.1* 31.7* 34.3* PLT 163 170 159 192 NEUTROPERC 97.9* 98.5* 97.9* -- LYMPHPERC 0.7* 0.6* 1.1* -- MONOPERC 0.8* 0.3* 0.2* -- BASOPERC 0.0 0.0 0.0 -- EOSPERC 0.0* 0.0* 0.4* -- Liver Tests: Last 72 hours (or 3 results) Recent Labs 04/17/19 0049 04/18/19204/19/19132 AST 36 19 17 ALT 37 27 20 TBILI 0.3 0.4 0.7 AP 94 83 76 ALB 3.0* 2.7* 2.7* TP 5.9* 5.4* 5.4* Chemistries: Last 72 Hours (or 3 results): Recent Labs 04/17/19 0049 04/18/19204/19/1913204/19/19 1524 NA 140 -- 144 142 -- K 3.4 < > 4.0 2.7* 3.8 CL 110* -- 112* 105 -- BICARB 24 -- 28 32 -- BUN 18 -- 14 10 -- EGFRAFRICAN >60 -- >60 >60 -- CR 0.59* -- 0.61 0.63 -- GLU 137* -- 110* 99 -- CA 8.2* -- 7.7* 8.0* -- MG 2.3 -- 2.0 2.0 -- PO4 2.9 -- 3.1 3.3 -- < > = values in this interval not displayed. Assessment/Plan: I certify that the history (as documented today) is reviewed, patient interviewed and perso chelo examined by me. Heme: no blood products required today and undergoing treatment with planned conditioning o f fludarabine cyclophosphamide and total body radiation; fludarabine and cyclophosphamide ad ministered. Dose # 1-4 of planned 8 XRT TBI doses now administered. Well controlled sx of CINV Complete mesna for uro-protection ID: afebrile, on Continues on prophylactic anti-infective agents. GI: Continue aggressive antiemetic regimen FEN: No evidence of cyclophosphamide induced SIADH; Decrease MIVF to as needed, as long as pt maintains hi oral intake Continue diuresis GVHD: Will receive GVHD prophylaxis with tacrolimus and MMF Other: For double cord blood transplant,; patient on [facility] randomized trial and patient sc heduled to receive standard care transplantation Continue full supports Sukhi Millan MD [facility] [id number] Mailcode: [id number] [place] [address] Sukhi Rios MD - 04/18/2019 8:52 PM PDT BMT/Leukemia Service Attending Progress Note [facility] Stephenie Camarillo is a 53 y.o. female Patient Active Problem List Diagnosis MDS (myelodysplastic syndrome) (HCC) Acute deep vein thrombosis (DVT) of both upper extremities (HCC) Stem cell transplant candidate Date: 04/18/2019 Day: -4. Diagnosis: Myelodysplasia; patient admitted for cord blood transplantation procedure GAMIDA TRIAL Subjective: Less symptoms of fluid overload. She has some ongoing shortness of breath repo rted with exertion. Markedly improved by pt report; No chest pain. Did respond to diuresis otherwise, no nausea or vomiting or diarrhea. Tolerating chemotherapy well. No symptoms o f active infection. No bleeding. First dose of radiation today without N/V ROS: remainder is negative PFSH: non-contributory Exam: Last Vitals: BP 131/63 (BP Location: Right upper arm, Patient Position: Sitting) | Pulse 9 4 | Temp 37.7 C (99.9 F) (Oral) | Resp 18 | Ht 1.591 m (5' 2.64") | Wt 74.1 kg (163 lb 5.8 oz) | SpO2 93% | BMI 29.27 kg/m | BSA 1.81 m 24 hour Vitals min/max : Systolic (24hrs), Av , Min:114 , Max:151 Diastolic (24hrs), Av, Min:54, Max:72 Intake/Output 04/16 07 - 04/17 0700 04/17 07 - 04/18 0700 04/18 07 - 04/19 0700 P.O. 3110 3320 1710 I.V. 3433 1757.5 407 IV Piggyback 1529.4 273.4 Total Intake 8072.4 5350.9 2117 Urine (mL/kg/hr) 5550 (3.1) 5475 (3.1) 5300 (5.2) Other Total Output(mL/kg) 5550 (74.5) 5475 (73.9) 5300 (71.5) Net +2522.4 -124.1 -3183 Temp (24hrs), Av.1 C (98.7 F), Min:36.4 C (97.5 F), Max:37.7 C (99.9 F) General: not toxic appearing; got haircut Skin: no rash and catheter site well dressed but no oozing at the exit site. No tenderness to palpation directly Eyes: normal, PERRLA and EOM's intact Mouth: normal mucosa and no oral lesions Neck: supple; no JVD appreciated Lymph: No palpable peripheral adenopathy Chest: No further crackles heard on auscultation Heart: RRR, no murmur, S1/S2 normal Abdomen: Soft and nontender without masses or hepatosplenomegaly Extrem: no pretibial/pedal edema Neuro: alert, oriented x 3, cranial nerves intact, motor/sens non-focal Pain Scale (0-10): 0 Lab/X-ray findings: CBC with diff last 72 hours (or 3 results) Recent Labs 04/17/19 0049 04/17/19 1621 04/18/19 0003 04/18/19 1740 WBC 13.72* 12.82* 8.72 6.91 HB 11.2* 10.6* 10.0* 10.1* HCT 34.1* 32.7* 30.9* 31.1* PLT 210 203 163 170 NEUTROPERC 95.8* 95.9* 97.9* -- LYMPHPERC 1.4* 1.6* 0.7* -- MONOPERC 1.8* 1.6* 0.8* -- BASOPERC 0.2 0.2 0.0 -- EOSPERC 0.0* 0.0* 0.0* -- Liver Tests: Last 72 hours (or 3 results) Recent Labs 04/16/19 0033 04/17/19 0049 04/18/19 0003 AST 17 36 19 ALT 18 37 27 TBILI 0.4 0.3 0.4 AP 105* 94 83 ALB 3.2* 3.0* 2.7* TP 6.3* 5.9* 5.4* Chemistries: Last 72 Hours (or 3 results): Recent Labs 04/16/19 0033 04/17/19 0049 04/17/19 1621 04/18/19 0003 NA 138 140 -- 144 K 3.0* 3.4 3.3* 4.0 CL 104 110* -- 112* BICARB 25 24 -- 28 BUN 13 18 -- 14 EGFRAFRICAN >60 >60 -- >60 CR 0.75 0.59* -- 0.61 GLU 151* 137* -- 110* CA 8.3* 8.2* -- 7.7* MG 1.4* 2.3 -- 2.0 PO4 2.6 2.9 -- 3.1 Assessment/Plan: I certify that the history (as documented today) is reviewed, patient interviewed and perso chelo examined by me. Heme: no blood products required today and undergoing treatment with planned conditioning o f fludarabine cyclophosphamide and total body radiation; fludarabine and cyclophosphamide ad ministered. Dose # 1 & 2 of planned 8 XRT TBI doses Complete mesna for uro-protection ID: afebrile, on Continues on prophylactic anti-infective agents. GI: Continue aggressive antiemetic regimen FEN: No evidence of cyclophosphamide induced SIADH; Decrease MIVF to as needed, as long as pt maintains hi oral intake Continue diuresis GVHD: Will receive GVHD prophylaxis with tacrolimus and MMF Other: For double cord blood transplant,; patient on Gamida randomized trial and patient sc heduled to receive standard care transplantation Continue full supports Sukhi Millan MD [facility] [id number] Mailcode: [email or web address] [place] [id number] Mecca Watt [facility] - 04/18/2019 3:04 PM PDT Daily GISSEL Note - Transplant Admit [facility] Attending: Dr. Millan [facility] Physician: Annika De La Torre MD Local Oncologist: none PCP: LACY Perez Date of Admission: 04/15/2019 Hematologic Malignancy: MDS Conditioning regimen: Flu/TBI/Cy Date of transplant: 04/22/2019 Donor: double cord (on gamida trial- randomized to SOC) Reason for admission: Scheduled admission for myeloablative chemotherapy with subsequent st em cell infusion. 24-hr Events/Daily Plan: # MDS- admit for flu/tbi double cord Currently day -4 # anemia- underlying disease. Standard transfusion parameters. No repletion today # FVO- weight up from admit and overal I/O is + by 6L. Diuresing and adjusting IVF PRN -stopped IV today, if po drops, will have to add back -lasix 40 mg IV x 1 04/18 # Non-neutropenic fever- x 1 on 04/17- Cultures PENDING. Levaquin still on aug for autosta rt on day +5 as anticipate will be off broad spectrum therapy soon. -Cefepime (04/17- ) # lytes: Standard repletion: hypoK - to be repleted. # Nutrition: Eating 80-100% x 3 meals- took in 3.1 L of oral fluids Subjective: Feels better, less short of breath. Aware she had fever yesterday, but feels b srinivas. Was cold when having fever, but now feels normal. Objective: Last Vitals: BP 134/54 (BP Location: Right upper arm, Patient Position: Sitting) | Pulse 9 6 | Temp 37 C (98.6 F) (Oral) | Resp 18 | Ht 1.591 m (5' 2.64") | Wt 74.1 kg (163 lb 5.8 oz) | SpO2 92% | BMI 29.27 kg/m | BSA 1.81 m 24 Hour Vital Min/Max: Systolic (24hrs), Av , Min:108 , Max:134 Diastolic (24hrs), Av, Min:54, Max:59 Pulse Min: 81 Max: 108 Temp Min: 36.4 C (97.5 F) Max: 38.1 C (100.6 F) Resp Min: 18 Max: 20 SpO2 Min: 92 % Max: 95 % Intake/Output Summary (Last 24 hours) at 04/18/2019 1504 Last data filed at 04/18/2019 1340 Gross per 24 hour Intake 4378.7 ml Output 2600 ml Net 1778.7 ml Physical Exam: General: This is a female in no acute distress. Sitting up in chair HEENT: PERRL. Sclerae anicteric. Mucosa pink and moist without erythema or exudate. Skin: No rash, lesions noted. Chest: Lungs clear to auscultation bilat. CV: RRR, no murmurs. Abdomen: S/NT/ND with NABS. No HSM appreciated. Extremities: Pulses strong and equal bilaterally. No c/c/e. Neuro: Alert and oriented x 3. Grossly nonfocal exam. CVC: 2L tunneled left chest catheter Laboratory Results: Recent Labs 04/16/19 0033 04/17/19 0049 04/17/19 1621 04/18/19 0003 NA 138 140 -- 144 K 3.0* 3.4 3.3* 4.0 CL 104 110* -- 112* BICARB 25 24 -- 28 BUN 13 18 -- 14 CR 0.75 0.59* -- 0.61 GLU 151* 137* -- 110* CA 8.3* 8.2* -- 7.7* AST 17 36 -- 19 ALT 18 37 -- 27 AP 105* 94 -- 83 TBILI 0.4 0.3 -- 0.4 TP 6.3* 5.9* -- 5.4* ALB 3.2* 3.0* -- 2.7* Recent Labs 04/17/19 0049 04/17/19 1621 04/18/19 0003 WBC 13.72* 12.82* 8.72 RBC 3.86* 3.72* 3.44* HB 11.2* 10.6* 10.0* HCT 34.1* 32.7* 30.9* PLT 210 203 163 NEUTROPERC 95.8* 95.9* 97.9* LYMPHPERC 1.4* 1.6* 0.7* MONOPERC 1.8* 1.6* 0.8* BASOPERC 0.2 0.2 0.0 EOSPERC 0.0* 0.0* 0.0* Meds: Reviewed on rounds, see current MAR for medication list SUMMARY OF PATIENT'S HOSPITALIZATION History of Present Illness: (from H&P) MDS (myelodysplastic syndrome) ([facility]) 11/30/2018 Initial Diagnosis MDS (myelodysplastic syndrome) ([facility]) 12/02/2018 - 12/29/2018 Chemotherapy azaCITIDine (VIDAZA) injection 125 mg, 75 mg/m2 = 125 mg, subcutaneous, ONCE, 1 of 6 cycles 04/15/2019 - Chemotherapy fludarabine (FLUDARA) 42.5 mg in NaCl 0.9 % (NS) IV, 25 mg/m2 = 42.5 mg, intravenous, EVERY 24 HOURS, 0 of 1 cycle cyclophosphamide (CYTOXAN) 60 mg/kg = 4,000 mg in NaCl 0.9 % (NS) IV, 60 mg/kg = 4,000 mg, intravenous, EVERY 24 HOURS, 0 of 1 cycle History of Present Illness: Stephenie Camarillo is a 53 year old female with 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 PMH: uterine fibroids and fibroid removal from the left breast. Hematogical history: 2016- Presented with months of fatigue and then fevers. 10/07/18 showed normal chemistries, Bilirubin 1.4, hepatitis negative, ESR elevated at 174 w ith RA, RIOS C3/C4 negative. CBC showed WBC 2.4, Hb 10.8, Plt 166K, ANC 1529. 10/29/2018- eval by Dr. Sequeira (medical oncology). BM BX - 11/05 showing hypercellular ma rrow (70%) with 18% blasts by morphology and 26% blasts on flow. Mild erythroid hyperplasia and megakaryocytic atypia. 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 Cyto genetics were normal. MDS and AML FISH panel was negative. NGS panel was negative for FLT3, NPM1, CEBPA, c-KIT, IDH1, IDH2, TP53. 12/24/2018 Vidaza started however developed a rash to the SQ injection and missed D3, dexam ethasone was added for D4-D7. She lives in a travel trailer at her niece's house. She has n o healthy siblings. One brother in [place] is an alcoholic. Older sister lives in a mcf[facility] due to vascular dementia and severe diabetes. 01/14-01/26/2019-admitted to the hospital for zoster infection, her AZA has been held for th e last 1 month due to ongoing issues with zoster lesions. She was initially treated with IV acyclovir from approx 01/10 through 01/16 then transitioned to valacyclovir 1g TID to complete an additional 7d then decreased to 500mg BID. 02/17/2019 Cord blood is only option and she consented to kyle "[id number]: A Multicent er, Randomized, Phase III Registration Trial of Transplantation of Calvin Ex Vivo Expande d, UCB-derived, Stem and Progenitor Cells, vs. Unmanipulated UCB for Patients With Hematolog ical Malignancies". She was randomized to SOC arm. 02/21/2019- C3 aza started Tolerated well without complications. Admitted for planned double cord stem cell transplant. Hospitalization History: Hematology: #Hematologic Malignancy: MDS - Conditioning Regimen: flu/cy/tbi fludarabine 42.5 mg (25 mg/m2) IV x 3 days - to start on 04/15. Cytoxan 60 mg/kg (3,000mg ) IV x 2 days to start on 04/15 TBI 1200 cGy (in 8 fractions of 150 cGY BID x 4 days) Stem cell transplant -BMT Day: -4 -Stem Cell product: due for infusion of double cord product on 04/22/2019 Post-transplant Considerations: -BM Bx to be completed on day +30, day +100, 6 months, and 1 year post-transplant. #Leukopenia, Anemia: -See supportive care #Supportive Care: Growth Factor: due to begin daily Neupogen dosing on day +1 (04/23/2019) and continue un til ANC > 1500 x 2 consecutive days. Labs: Continue to check CBC daily Transfusion parameters: -Transfuse PRBCs for HCT <21% if asymptomatic OR <24% if symptomatic -Transfuse PPH for platelet count <10,000 sooner for s/s bleeding GVHD: not applicable at this time Prophylaxis/Treatment: current regimen includes: tacrolimus and cellcept -tacrolimus 1 mg BID (goal 5-15) to start day -3 -cellcept 1000 mg PO TID - through day 60- per gamida protocol Staging: Skin: stage na Gut: stage na Liver: stage na Overall Grade: na Pulmonary: Pretransplant PFTs completed on 03/10/2019 showed FEV1 of 76% predicted, FVC of 87% predicted and adjusted DLCO of 77% predicted. No acute issues Cardiovascular: Pretransplant TTE completed on 03/10/2019 showed a LVEF of 60-65%. No acute issues GI: #Risk for Mucositis: no mucositis -Continue oral care with normal saline rinses frequently /Renal: No acute issues Infectious Disease: # Non-neutropenic fever- x 1 on 04/17- Cultures PENDING. Levaquin still on mar for autosta rt on day +5 as anticipate will be off broad spectrum therapy soon. -Cefepime (04/17- ) #Prophylaxis: Bacterial: Levofloxacin starts day +5 or when neutropenic -For first neutropenic fever, rasmussen cx, CXR, d/c Levofloxacin and begin cefepime for empiric broadspectrum coverage. Fungal: Fluconazole starts day 0 Viral: Valacyclovir starts day +1 PCP: Bactrim day of admission through day -1 then Pentamidine prior to discharge Toxo: Pt is toxo negative, no further testing required. #Routine infectious disease testing -CMV by PCR weekly, starting after day 0. No results found for: CMVQUANTPCR -Asp. Galactomannan weekly, starting after day 0. Lab Results Component Value Date GALACTO Negative 04/18/2019 Fluid/Nutrition/Lytes: #Nutrition: Current diet -- low bacteria. #Fluid: NS stopped on 04/18 d/t fluid overload. Drinking ~3L/day #Lytes: Continue to check chemistries daily. Replace per supportive care protocol. Disposition: Scheduled admission for myeloablative chemotherapy with subsequent stem cell infusion. Anticipate 4 weeks hospitalization. HEATHER Paredes [facility] [id number] Mailcode: [id number] [place] [phone] ukhi Millan MD - 04/17/2019 3:49 PM PDT BMT/Leukemia Service Attending Progress Note [facility] Stephenie Camarillo is a 53 y.o. female Patient Active Problem List Diagnosis MDS (myelodysplastic syndrome) (HCC) Acute deep vein thrombosis (DVT) of both upper extremities (HCC) Stem cell transplant candidate Date: 04/17/2019 Day: -5. Diagnosis: Myelodysplasia; patient admitted for cord blood transplantation procedure Subjective: No further difficulties at the catheter insertion site. However, with fluid in fusions for management of her cyclophosphamide, she has developed symptoms of fluid overload . She has some shortness of breath reported with minimal activity. No chest pain. Did re spond to diuresis otherwise, no nausea or vomiting or diarrhea. Tolerating chemotherapy well. No symptoms o f active infection. No bleeding. ROS: remainder is negative PFSH: non-contributory Exam: Last Vitals: BP 117/59 (BP Location: Left upper arm, Patient Position: Sitting) | Pulse 93 | Temp 36.7 C (98.1 F) (Oral) | Resp 20 | Ht 1.591 m (5' 2.64") | Wt 74.5 kg (164 l b 3.9 oz) | SpO2 100% | BMI 29.43 kg/m | BSA 1.81 m 24 hour Vitals min/max : Systolic (24hrs), Av , Min:117 , Max:156 Diastolic (24hrs), Av, Min:57, Max:124 Intake/Output 04/15 07 - 04/16 0700 04/16 07 - 04/17 0700 04/17 07 - 04/18 0700 P.O. 2370 3110 1620 I.V. 2277.5 3433 687.5 IV Piggyback 1538.6 1529.4 171.7 Total Intake 6186.1 8072.4 2479.2 Urine (mL/kg/hr) 2750 5550 (3.1) 3525 (5.4) Other 5 Total Output(mL/kg) 2755 (36.2) 5550 (74.5) 3525 (47.3) Net +3431.1 +2522.4 -1045.8 Temp (24hrs), Av.5 C (97.7 F), Min:36.3 C (97.3 F), Max:36.7 C (98.1 F) General: Dyspneic after walking from bathroom to bed; not toxic appearing Skin: no rash and catheter site well dressed but no oozing at the exit site. No further ob servations of tenderness to palpation directly Eyes: normal, PERRLA and EOM's intact Mouth: normal mucosa and no oral lesions Neck: supple; ? Elevated JVD at 12 cm Lymph: No palpable peripheral adenopathy Chest: On auscultation, the patient has crackles audible particularly in the right posterio r lung field, approximately 25% of the lung waters. Some present also at the left lower leobardo ng field Heart: RRR, no murmur, S1/S2 normal Abdomen: Soft and nontender without masses or hepatosplenomegaly Extrem: no pretibial/pedal edema Neuro: alert, oriented x 3, cranial nerves intact, motor/sens non-focal Pain Scale (0-10): 0 Lab/X-ray findings: CBC with diff last 72 hours (or 3 results) Recent Labs 04/16/19 0033 04/16/19 1616 04/17/19 0049 WBC 7.95 15.44* 13.72* HB 12.0 11.1* 11.2* HCT 37.2 33.8* 34.1* PLT 236 214 210 NEUTROPERC 90.3* 93.3* 95.8* LYMPHPERC 7.8* 3.0* 1.4* MONOPERC 0.8* 2.7* 1.8* BASOPERC 0.4 0.2 0.2 EOSPERC 0.1* 0.1* 0.0* Liver Tests: Last 72 hours (or 3 results) Recent Labs 04/15/19 1348 04/16/19 0033 04/17/19 0049 AST 13 17 36 ALT 16 18 37 TBILI 0.4 0.4 0.3 AP 98 105* 94 ALB 3.2* 3.2* 3.0* TP 6.4 6.3* 5.9* Chemistries: Last 72 Hours (or 3 results): Recent Labs 04/15/19 1348 04/16/193 04/17/1949 NA 141 138 140 K 3.4 3.0* 3.4 CL 110* 104 110* BICARB 27 25 24 BUN 11 13 18 EGFRAFRICAN >60 >60 >60 CR 0.56* 0.75 0.59* GLU 83 151* 137* CA 8.6 8.3* 8.2* MG 1.8 1.4* 2.3 PO4 3.0 2.6 2.9 Assessment/Plan: I certify that the history (as documented today) is reviewed, patient interviewed and perso chelo examined by me. Heme: no blood products required today and undergoing treatment with planned conditioning o f fludarabine cyclophosphamide and total body radiation; fludarabine and cyclophosphamide to day. Continue mesna for uro-protection ID: afebrile, on Continues on prophylactic anti-infective agents. GI: Continue aggressive antiemetic regimen FEN: No evidence of cyclophosphamide induced SIADH; Fluid overload was documented with the IV hydration for her cyclophosphamide. We will decr ease maintenance IV fluids to 75 mL continuous during her radiation. For now, we will begin furosemide diuresis IV and continue as needed. Patient does have fluid retention and we wi ll monitor her examination and symptoms for resolution; these findings are consistent with m ild congestive heart failure GVHD: Will receive GVHD prophylaxis with tacrolimus and MMF Other: For double cord blood transplant,; patient on Gamida randomized trial and patient sc heduled to receive standard care transplantation Continue full supports Sukhi Millan MD [facility] [address] Mailcode: [id number] [place] [phone] awandaMeccaHEATHER - 04/17/2019 3:18 PM PDT Daily GISSEL Note - Transplant Admit [facility] Attending: Dr. Millan [facility] Physician: Annika De La Torre MD Local Oncologist: none PCP: LACY Perez Date of Admission: 04/15/2019 Hematologic Malignancy: MDS Conditioning regimen: Flu/TBI/Cy Date of transplant: 04/22/2019 Donor: double cord (on gamida trial- randomized to SOC) Reason for admission: Scheduled admission for myeloablative chemotherapy with subsequent st em cell infusion. 24-hr Events/Daily Plan: # MDS- admit for flu/tbi double cord Currently day -5 # Anemia/leukocytosis- secondary to steroid premed for chemotherapy, and underlying disease . Standard transfusion parameters. No repletion today # FVO- weight up from admit and overal I/O is + by 6L. Lasix 20 mg IV given overnight, and 40 mg IV. # lytes: Standard repletion: hypoK - to be repleted. # Nutrition: Eating and drinking normally- took in 3.1 L of oral fluids Subjective: Tolerating chemotherapy well, but feeling very fluid overloaded Objective: Last Vitals: BP 123/57 (BP Location: Left upper arm, Patient Position: Sitting) | Pulse 98 | Temp 36.5 C (97.7 F) (Oral) | Resp 20 | Ht 1.591 m (5' 2.64") | Wt 74.5 kg (164 l b 3.9 oz) | SpO2 96% | BMI 29.43 kg/m | BSA 1.81 m 24 Hour Vital Min/Max: Systolic (24hrs), Av , Min:120 , Max:156 Diastolic (24hrs), Av, Min:57, Max:124 Pulse Min: 56 Max: 98 Temp Min: 36.3 C (97.3 F) Max: 36.6 C (97.9 F) Resp Min: 16 Max: 20 SpO2 Min: 92 % Max: 96 % Intake/Output Summary (Last 24 hours) at 04/17/2019 1518 Last data filed at 04/17/2019 1420 Gross per 24 hour Intake 6639.86 ml Output 7075 ml Net -435.14 ml Physical Exam: General: This is a female in no acute distress. HEENT: PERRL. Sclerae anicteric. Mucosa pink and moist without erythema or exudate. Skin: No rash, lesions noted. Chest: Lungs clear to auscultation bilat. CV: RRR, no murmurs. Abdomen: S/NT/ND with NABS. No HSM appreciated. Extremities: Pulses strong and equal bilaterally. No c/c/e. Neuro: Alert and oriented x 3. Grossly nonfocal exam. CVC: 2L tunneled left chest catheter Laboratory Results: Recent Labs 04/15/19 1348 04/16/19 0033 04/17/19 0049 NA 141 138 140 K 3.4 3.0* 3.4 CL 110* 104 110* BICARB 27 25 24 BUN 11 13 18 CR 0.56* 0.75 0.59* GLU 83 151* 137* CA 8.6 8.3* 8.2* AST 13 17 36 ALT 16 18 37 AP 98 105* 94 TBILI 0.4 0.4 0.3 TP 6.4 6.3* 5.9* ALB 3.2* 3.2* 3.0* Recent Labs 04/16/19 0033 04/16/19 1616 04/17/19 0049 WBC 7.95 15.44* 13.72* RBC 4.14 3.84* 3.86* HB 12.0 11.1* 11.2* HCT 37.2 33.8* 34.1* PLT 236 214 210 NEUTROPERC 90.3* 93.3* 95.8* LYMPHPERC 7.8* 3.0* 1.4* MONOPERC 0.8* 2.7* 1.8* BASOPERC 0.4 0.2 0.2 EOSPERC 0.1* 0.1* 0.0* Meds: Reviewed on rounds, see current MAR for medication list SUMMARY OF PATIENT'S HOSPITALIZATION History of Present Illness: (from H&P) MDS (myelodysplastic syndrome) (HCC) 11/30/2018 Initial Diagnosis MDS (myelodysplastic syndrome) (HCC) 12/02/2018 - 12/29/2018 Chemotherapy azaCITIDine (VIDAZA) injection 125 mg, 75 mg/m2 = 125 mg, subcutaneous, ONCE, 1 of 6 cycles 04/15/2019 - Chemotherapy fludarabine (FLUDARA) 42.5 mg in NaCl 0.9 % (NS) IV, 25 mg/m2 = 42.5 mg, intravenous, EVERY 24 HOURS, 0 of 1 cycle cyclophosphamide (CYTOXAN) 60 mg/kg = 4,000 mg in NaCl 0.9 % (NS) IV, 60 mg/kg = 4,000 mg, intravenous, EVERY 24 HOURS, 0 of 1 cycle History of Present Illness: Stephenie Camarillo is a 53 year old female with 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 PMH: uterine fibroids and fibroid removal from the left breast. Hematogical history: 2016- Presented with months of fatigue and then fevers. 10/07/18 showed normal chemistries, Bilirubin 1.4, hepatitis negative, ESR elevated at 174 w ith RA, RIOS C3/C4 negative. CBC showed WBC 2.4, Hb 10.8, Plt 166K, ANC 1529. 10/29/2018- eval by Dr. Sequeira (medical oncology). BM BX - 11/05 showing hypercellular ma rrow (70%) with 18% blasts by morphology and 26% blasts on flow. Mild erythroid hyperplasia and megakaryocytic atypia. 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 Cyto genetics were normal. MDS and AML FISH panel was negative. NGS panel was negative for FLT3, NPM1, CEBPA, c-KIT, IDH1, IDH2, TP53. 12/24/2018 Vidaza started however developed a rash to the SQ injection and missed D3, dexam ethasone was added for D4-D7. She lives in a travel trailer at her niece's house. She has n o healthy siblings. One brother in [place] is an alcoholic. Older sister lives in a m[facility] due to vascular dementia and severe diabetes. 01/14-01/26/2019-admitted to the hospital for zoster infection, her AZA has been held for e last 1 month due to ongoing issues with zoster lesions. She was initially treated with IV acyclovir from approx 01/10 through 01/16 then transitioned to valacyclovir 1g TID to complete an additional 7d then decreased to 500mg BID. 02/17/2019 Cord blood is only option and she consented to kyle "[id number]: A Multicent er, Randomized, Phase III Registration Trial of Transplantation of NiCord, Ex Vivo Expande d, UCB-derived, Stem and Progenitor Cells, vs. Unmanipulated UCB for Patients With Hematolog ical Malignancies". She was randomized to SOC arm. 02/21/2019- C3 aza started Tolerated well without complications. Admitted for planned double cord stem cell transplant. Hospitalization History: Hematology: #Hematologic Malignancy: MDS - Conditioning Regimen: flu/cy/tbi fludarabine 42.5 mg (25 mg/m2) IV x 3 days - to start on 04/15. Cytoxan 60 mg/kg (3,000mg ) IV x 2 days to start on 04/15 TBI 1200 cGy (in 8 fractions of 150 cGY BID x 4 days) Stem cell transplant -BMT Day: -5 -Stem Cell product: due for infusion of double cord product on 04/22/2019 Post-transplant Considerations: -BM Bx to be completed on day +30, day +100, 6 months, and 1 year post-transplant. #Leukopenia, Anemia: -See supportive care #Supportive Care: Growth Factor: due to begin daily Neupogen dosing on day +1 (04/23/2019) and continue un til ANC > 1500 x 2 consecutive days. Labs: Continue to check CBC daily Transfusion parameters: -Transfuse PRBCs for HCT <21% if asymptomatic OR <24% if symptomatic -Transfuse PPH for platelet count <10,000 sooner for s/s bleeding GVHD: not applicable at this time Prophylaxis/Treatment: current regimen includes: tacrolimus and cellcept -tacrolimus 1 mg BID (goal 5-15) to start day -3 -cellcept 1000 mg PO TID Staging: Skin: stage na Gut: stage na Liver: stage NA Overall Grade: na Pulmonary: Pretransplant PFTs completed on 03/10/2019 showed FEV1 of 76% predicted, FVC of 87% predicted and adjusted DLCO of 77% predicted. No acute issues Cardiovascular: Pretransplant TTE completed on 03/10/2019 showed a LVEF of 60-65%. No acute issues GI: #Risk for Mucositis: no mucositis -Continue oral care with normal saline rinses frequently /Renal: No acute issues Infectious Disease: No acute issues #Prophylaxis: Bacterial: Levofloxacin starts day +5 or when neutropenic -For first neutropenic fever, rasmussen cx, CXR, d/c Levofloxacin and begin cefepime for empiric broadspectrum coverage. Fungal: Fluconazole starts day 0 Viral: Valacyclovir starts day +1 PCP: Bactrim day of admission through day -1 then Pentamidine prior to discharge Toxo: Pt is toxo negative, no further testing required. #Routine infectious disease testing -CMV by PCR weekly, starting after day 0. No results found for: CMVQUANTPCR -Asp. Galactomannan weekly, starting after day 0. No results found for: GALACTO Fluid/Nutrition/Lytes: #Nutrition: Current diet -- low bacteria. #Fluid: NS at 75 ml/hr (decreased d/t fluid overload) #Lytes: Continue to check chemistries daily. Replace per supportive care protocol. Disposition: Scheduled admission for myeloablative chemotherapy with subsequent stem cell infusion. Anticipate 4 weeks hospitalization. HEATHER Paredes [facility] [address] Mailcode: [id number] [place] [phone] Sukhi Rios MD - 04/16/2019 12:37 PM PDT BMT/Leukemia Service Attending Progress Note [facility] Health Maintenance reviewed - . Stephenie Camarillo is a 53 y.o. female Patient Active Problem List Diagnosis MDS (myelodysplastic syndrome) (HCC) Acute deep vein thrombosis (DVT) of both upper extremities (HCC) Stem cell transplant candidate Date: 04/16/2019 Day: -6. Diagnosis: Myelodysplasia; patient admitted for cord blood transplantation procedure Subjective: The patient complains of mild discomfort at the catheter insertion site but it has improved since the last 24 hours. No shortness of breath. No nausea or vomiting or iman rrhea. Tolerating chemotherapy well. No symptoms of active infection. No bleeding. ROS: remainder is negative PFSH: non-contributory Exam: Last Vitals: BP 133/68 (BP Location: Left upper arm, Patient Position: Sitting) | Pulse 72 | Temp 36.4 C (97.5 F) (Oral) | Resp 16 | Ht 1.591 m (5' 2.64") | Wt 76.2 kg (167 l b 15.9 oz) | SpO2 96% | BMI 30.10 kg/m | BSA 1.84 m 24 hour Vitals min/max : Systolic (24hrs), Av , Min:108 , Max:138 Diastolic (24hrs), Av, Min:61, Max:79 Pulse Min: 64 Max: 83 Temp Min: 36.2 C (97.2 F) Max: 36.6 C (97.9 F) Resp Min: 14 Max: 16 SpO2 Min: 93 % Max: 99 % Intake/Output Summary (Last 24 hours) at 04/16/2019 1237 Last data filed at 04/16/2019 1100 Gross per 24 hour Intake 7697.82 ml Output 4205 ml Net 3492.82 ml General: looks comfortable Skin: no rash and catheter site well dressed but no oozing at the exit site. Slight tender ness to palpation directly Eyes: normal, PERRLA and EOM's intact Mouth: normal mucosa and no oral lesions Neck: supple Lymph: No palpable peripheral adenopathy Chest: Clear to auscultation Heart: RRR, no murmur, S1/S2 normal Abdomen: Soft and nontender without masses or hepatosplenomegaly Extrem: no pretibial/pedal edema Neuro: alert, oriented x 3, cranial nerves intact, motor/sens non-focal Pain Scale (0-10): 1 Lab/X-ray findings: CBC with diff last 72 hours (or 3 results) Recent Labs 04/14/19 1057 04/15/19 1348 04/16/19 0033 WBC 7.06 8.31 7.95 HB 13.2 12.2 12.0 HCT 40.3 38.2 37.2 PLT 270 258 236 NEUTROPERC 67.1 67.3 90.3* LYMPHPERC 23.1 23.8 7.8* MONOPERC 5.7 5.9 0.8* BASOPERC 1.1 0.8 0.4 EOSPERC 2.4 1.7 0.1* Liver Tests: Last 72 hours (or 3 results) Recent Labs 04/14/19 1057 04/15/19 1348 04/16/19 0033 AST 13 13 17 ALT 17 16 18 TBILI 0.4 0.4 0.4 AP 106* 98 105* ALB 3.5 3.2* 3.2* TP 7.0 6.4 6.3* Chemistries: Last 72 Hours (or 3 results): Recent Labs 04/14/19 1057 04/15/19 1348 04/16/19 0033 NA 139 141 138 K 3.2* 3.4 3.0* CL 104 110* 104 BICARB 25 27 25 BUN 13 11 13 EGFRAFRICAN >60 >60 >60 CR 0.65 0.56* 0.75 GLU 145* 83 151* CA 8.8 8.6 8.3* MG -- 1.8 1.4* PO4 -- 3.0 2.6 Assessment/Plan: I certify that the history (as documented today) is reviewed, patient interviewed and perso chelo examined by me. Heme: no blood products required today and undergoing treatment with planned conditioning o f fludarabine cyclophosphamide and total body radiation; fludarabine and cyclophosphamide to day. Continue mesna for uro-protection ID: afebrile, on Continues on prophylactic anti-infective agents. GI: Continue aggressive antiemetic regimen FEN: No evidence of cyclophosphamide induced SIADH GVHD: Will receive GVHD prophylaxis with tacrolimus and MMF Other: For double cord blood transplant,; patient on gamida randomized trial and patient sc heduled to receive standard care transplantation Continue full supports Sukhi Millan MD [facility] [address] Mail[address]: [id number] [place] [phone] Chrissy Bernabe MD - 04/15/2019 12:08 PM PDTINTERVENTIONAL RADIOLOGY BRIEF PROCEDURE NOTE DATE: 04/15/2019 12:09 PM PROCEDURE: Dual lumen Groshong catheter placement PRE-PROCEDURE DIAGNOSIS: Myelodysplastic syndrome requiring Groshong for treatment POST-PROCEDURE DIAGNOSIS: same IR ATTENDING: Pee Hebert MD IR FELLOW: Nathan Mena MD IR RESIDENT: Chrissy Alvarez MD ACCESS: Left internal jugular vein MEDICATIONS: Fentanyl 100 mcg IV Versed 2 mg IV COMPLICATION(S): None immediate ESTIMATED BLOOD LOSS: 0 cc FINDINGS: 1. Widely patent LEFT internal jugular vein. 2. Successful LEFT IJ approach Dual Lumen Groshong placement. 3. No pneumothorax on post-procedural imaging. PLAN: 1. Neck precautions x 2 hours. 2. Dual lumen Groshong catheter ready for use immediately. Full dictated report forthcoming, which can be found under the imaging tab in Epic. MD Chrissy Castano MD Chrissy Fried MD - 04/15/2019 12:08 PM PDTINTERVENTIONAL RADIOLOGY POST SEDATION NOTE Maximum level of sedation achieved during the procedure: 2 Moderately sedated, easily arous ed with light tactile stimulation Current level of sedation: 0 Awake and alert BP 120/63 | Pulse 81 | Temp 36.9 C (98.4 F) (Oral) | Resp 13 | SpO2 100% Access site: Left IJ vein The patient is recovered from moderate (conscious) sedation with an appropriate level of pa in control. MD Chrissy Castano MD Chrissy Fried MD - 04/15/2019 10:59 AM PDT PRE-SEDATION EVALUATION ADVERSE DRUG REACTIONS: Allergies Allergen Reactions Sulfa (Sulfonamide Antibiotics) Hives RED FLAGS: None PREMEDICATIONS NEEDED: None Metformin: No Anticoagulants: None Physical Examination: BP 120/78, Pulse 86, Temperature 36.9 C (98.4 F), Temperature source Oral, RR 16, SpO2 97%. Facility age limit for growth percentiles is 18 years. GENERAL There is no height or weight on file to calculate BMI. HEENT Airways clear HEART RR LUNGS No respiratory distress ABDOMEN Soft, NT/ND EXTREMITIES Full range of motion x 4 NEURO Awake and alert Planned access point(S): IJ, laterality tbd Current level of pain: No Planned level of sedation: Moderate P.O. status: NPO Airway History: Are you having breathing problems today? no Are you having chest pain or discomfort today? no Have you had a prior history of difficult intubation or ventilation? no Do you have noisy breathing (stridor)? no Do you snore? yes Do you have documented sleep apnea? yes Airway Examination: normal airway ASA Status: 2. Sedation Assessment: I have reviewed Ms. Camarillo's history and conducted the physical examination as documented above. This patient is appropriate for moderate sedation. I have reviewed the Interventional Radiology outpatient consult/H&P dated 04/14/19, and the relevant changes are as follows: None Ms. Camarillo has provided written consent for sedation with this procedure. Sedation Plan: Procedure with moderate sedation. Ray Collier MD - 7:02 PM PDT Interventional Radiology Outpatient Pre-Procedure Note Planned Procedure: Groshong placement Outpatient IR Attending Physician: Tripp Norton MD Assessment: 53 year old female with high risk myelodysplastic syndrome, now referred for DL Groshong pl acement for stem cell transplant. Allergies: Sulfa Anti-Coagulation: Eliquis - 48 hour hold Labs (04/14/19): Hgb 13.2, Hct 40.3, Plt 270, INR 1.04, Creatinine 0.65 Anatomy/Imaging: Widely patent RIJ by CT 01/10/19. No other lines by recent CXR 03/22/19. Plan: DL Groshong catheter placement with moderate sedation. HPI: 53 year old female with high risk myelodysplastic syndrome following 2 cycles of AZA compli cated by herpetic zoster infection. Patient now referred for Groshong placement for stem david l transplant. Widely patent RIJ by CT 01/10/19. No other lines by recent CXR 03/22/19. Current Medications: No current facility-administered medications for this encounter. Current Outpatient Medications Medication Sig apixaban 2.5 mg oral tablet Take 1 tablet by mouth two times daily. escitalopram oxalate 10 mg oral tablet Take 20 mg by mouth once daily. ondansetron 8 mg oral tablet Take 8 mg by mouth every twelve hours as needed. potassium chloride SR 20 mEq oral tablet,ER particles/crystals Take 1 tablet by mouth o nce daily. triamterene-hydrochlorothiazide 37.5-25 mg oral capsule Take 1 capsule by mouth once da nereyda. valACYclovir 500 mg oral tablet Take 1 tablet by mouth two times daily. Indications: vi ral infection prevention (Patient not taking: Reported on 04/14/2019) Allergies: Allergies Allergen Reactions Sulfa (Sulfonamide Antibiotics) Hives Past Medical History: Past Medical History: Diagnosis Date Fibroid HTN (hypertension) Miscarriage Surgical History: Past Surgical History Procedure Laterality Date Hysterectomy 2007 Breast fibroid 1979 fibroid removal left breast Social History: Social History Socioeconomic History Marital status: Single [...] file Gets together: Not on file Attends roman catholic service: Not on file Active member of club or organization: Not on file Attends meetings of clubs or organizations: Not on file Relationship status: Not on file Other Topics Concern Not on file Social History Narrative Lives with niece in [facility] Labs: Lab Results Component Value Date WBC 7.06 04/14/2019 HB 13.2 04/14/2019 HCT 40.3 04/14/2019 PLT 270 04/14/2019 MCV 88.0 04/14/2019 RDW 44.6 04/14/2019 Lab Results Component Value Date NA 139 04/14/2019 K 3.2 04/14/2019 CL 104 04/14/2019 BICARB 25 04/14/2019 BUN 13 04/14/2019 CR 0.65 04/14/2019 GLU 145 04/14/2019 CA 8.8 04/14/2019 AST 13 04/14/2019 ALT 17 04/14/2019 AP 106 04/14/2019 TBILI 0.4 04/14/2019 TP 7.0 04/14/2019 ALB 3.5 04/14/2019 ANIONGAP 10 04/14/2019 ANIONALBCOR 11 04/14/2019 Lab Results Component Value Date APTT 31.7 03/14/2019 Lab Results Component Value Date INRPT 1.04 03/14/2019 Imaging: Reviewed. Nathan Mena MD Interventional Radiology pgr [id number] documented in this encoun ter H&P Notes Reji Patterson MD - 04/15/2019 1:20 PM PDTFormatting of this note might be differe nt from the original. 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 The patient has a past medical history that includ es uterine fibroids and fibroid removal from the left breast. Her hematogical history dates back to 2015 when she noted progressive fatigue. 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 She was working 6 days per wee k and thought she was working too hard. She left her job in August 2017 to give herself some time to feel better. She had been to various physicians in [place] for fatigue without answers. I n January 15, she developed fevers up to 104. She was tested for lyme disease, rheumatological conditions which were all negative. She began to notice that her counts were dropping. She r elocated to [facility] from [place] to live with her niece in 06/2018. She saw a local PA in [facility] 07/2018 Meredith Sanchez who did further testing. Labs on 10/07/18 showed normal walter mistries, Bilirubin 1.4, hepatitis negative, ESR elevated at 174 with RA, RIOS C3/C4 negative . CBC showed WBC 2.4, Hb 10.8, Plt 166K, ANC 1529. She was referred to Dr. Sequeira ([facility] oncology) on 10/29. Bone marrow biopsy was performed on 11/05 showing hypercellular marrow (70%) with 18% by morphology and 26% on flow. Mild erythroid hyperplasia and megakaryocytic atypia. Blast immunophenotype was positive for CD33, CD45 dim, CD34, CD15, CD117, CD 11c, MP O. 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 Cytogenetics were normal. MDS and AML FISH panel was negative. NGS panel was negative for FLT3, NPM1, CEBPA, c-KIT, IDH1, IDH2, TP53. She started Vidaza locally on December 24 however developed a rash to the SQ inje ction and missed D3, dexamethasone was added for D4-D7. She lives in a travel trailer at her niece's house. Her niece has 5 dogs, 2 chicken, 3 cats and 1 ferret. She is applying for di sability and not currently working. Her niece owns a PET SPA and she helps out as needed. liana has no healthy siblings. One brother in [place] is an alcoholic. Older sister lives in a mcf[facility] due to vascular dementia and severe diabetes. Since my last visit with Stephenie, she was admitted to the hospital 01/14-01/26 for zoster infection, her AZA has been held for t he last 1 month due to ongoing issues with zoster lesions. She was initially treated with IV acyclovir from approx 01/10 through 01/16 then transitioned to valacyclovir 1g TID to complet e an additional 7d then decreased to 500mg BID. Cord blood is only option and she consented to anneida "[id number]: A Multicenter, Randomized, Phase III Registration Trial of Transpl antation of NiCord, Ex Vivo Expanded, UCB-derived, Stem and Progenitor Cells, vs. Unmanipu lated UCB for Patients With Hematological Malignancies". She was randomized to SOC arm. C3 a za started on 02/21-end 03/01. Tolerated well without complications. Review of Systems Constitutional: Negative. HENT: Negative. Respiratory: Negative. Cardiovascular: Negative. Gastrointestinal: Negative. Genitourinary: Negative. Musculoskeletal: Negative. Skin: Negative. Mild tenderness at site of new central line Neurological: Negative. Psychiatric/Behavioral: Negative. Current Medication List Name Sig APIXABAN [...] file Gets together: Not on file Attends roman catholic service: Not on file Active member of club or organization: Not on file Attends meetings of clubs or organizations: Not on file Relationship status: Not on file Other Topics Concern Not on file Social History Narrative Lives with niece in [facility] PE: Vitals: 04/15/19 1220 04/15/19 1225 04/15/19 1245 04/15/19 1300 BP: 124/63 122/65 108/68 127/79 Pulse: 78 78 79 77 Resp: (!) 11 (!) 11 16 15 Temp: TempSrc: SpO2: 100% 100% 99% 99% Physical Exam Constitutional: She is oriented to [...] is warm and dry. No rash noted. New tunneled CVC clear. Psychiatric: Affect normal. Laboratory Results for orders placed or performed during the hospital encounter of 04/15/19 COMPLETE METABOLIC SET (NA,K,CL,CO2,BUN,CREAT,GLUC,CA,AST,ALT,BILI TOTAL,ALK PHOS,ALB,PROT TOTAL) Result Value Ref Range GLUCOSE, PLASMA (LAB) 83 70 - 99 mg/dL BUN, PLASMA (LAB) 11 6 - 20 mg/dL CREATININE PLASMA (LAB) 0.56 (L) 0.60 - 1.10 mg/dL EGFR - GABONESE >60 >60 mL/min EGFR NON -GABONESE >60 >60 mL/min SODIUM, PLASMA (LAB) 141 136 - 145 mmol/L POTASSIUM, PLASMA (LAB) 3.4 3.4 - 5.0 mmol/L CHLORIDE, PLASMA (LAB) 110 (H) 97 - 108 mmol/L TOTAL CO2, PLASMA (LAB) 27 21 - 32 mmol/L CALCIUM, PLASMA (LAB) 8.6 8.6 - 10.2 mg/dL CALCIUM(ALB CORRECTED) 9.2 8.6 - 10.2 mg/dL BILIRUBIN TOTAL 0.4 0.3 - 1.2 mg/dL TOTAL PROTEIN, PLASMA (LAB) 6.4 6.4 - 8.2 g/dL ALBUMIN, PLASMA (LAB) 3.2 (L) 3.5 - 4.7 g/dL ALK PHOS 98 42 - 98 U/L AST(SGOT) 13 <=41 U/L ALT (SGPT) 16 <=60 U/L ANION GAP 4 4 - 11 mmol/L ANION GAP(ALB CORRECTED) 6 4 - 11 mmol/L POTASSIUM CMNT No Hemo BILI T CMNT No Hemo AST CMNT No Hemo MAGNESIUM, PLASMA Result Value Ref Range MAGNESIUM,PLASMA 1.8 1.6 - 2.6 mg/dL PHOSPHORUS, PLASMA Result Value Ref Range PHOSPHORUS, PLASMA (LAB) 3.0 2.4 - 4.7 mg/dL URIC ACID, PLASMA Result Value Ref Range URIC ACID, PLASMA (LAB) 5.3 2.5 - 6.2 mg/dL BILIRUBIN DIRECT Result Value Ref Range BILIRUBIN DIRECT <0.1 0.0 - 0.3 mg/dL BILI D CMNT No Hemo LDH TOTAL, PLASMA Result Value Ref Range LD TOTAL, PLASMA 138 <=250 U/L LD CMNT No Hemo ABO & RH TYPE Result Value Ref Range ABO Group O Rh Type Positive ANTIBODY SCREEN Result Value Ref Range Antibody Screen Negative COAGULOPATHY PANEL (INR,APTT,FIBRINOGEN) Result Value Ref Range INR 1.05 0.90 - 1.20 INR APTT 29.2 26.0 - 36.0 seconds FIBRINOGEN LEVEL 444 150 - 450 mg/dL UA, DIPSTICK ONLY Result Value Ref Range COLOR(UR) Straw APPEARANCE Clear GLUCOSE(UR) Negative Negative, 50.0 mg/dL PROTEIN(LAB) Negative Negative, 30.0 mg/dL BILIRUBIN Negative Negative UROBILINOGEN <2.0 <2.0 mg/dL PH(UR) 5.0 5.0 - 8.0 BLOOD Negative Negative KETONES Negative Negative mg/dL NITRITES Negative Negative LEUKOCYTE ESTERASE Negative Negative SPECIFIC GRAVITY 1.006 1.005 - 1.030 URINE, MICROSCOPIC EXAM Result Value Ref Range RED CELLS 0 0 - 3 /hpf WHITE CELLS <1 0 - 5 /hpf BACTERIA None None /hpf YEAST (LAB) None None /hpf SQUAMOUS EPITHELIAL None None, Few /hpf MUCOUS None None, Few /hpf NON-SQUAMOUS EPITH None None /hpf HYALINE CASTS 0 0 - 2 /lpf GRANULAR CASTS 0 0 - 2 /lpf CELLULAR CASTS 0 <=0 /lpf TRIPLE P04 CRYSTALS None None, Few /hpf CALCIUM OXALATE ANTONINA None None, Few /hpf URIC ACID CRYSTALS None None, Few /hpf AMORPHOUS CRYSTALS None None, Few /hpf VRE (PENNIE) BY PCR Result Value Ref Range VRE BY PCR Negative for van A gene Negative for van A gene CBC AND AUTO DIFF Result Value Ref Range WHITE CELL COUNT 8.31 3.50 - 10.80 K/cu mm RED CELL COUNT 4.30 4.00 - 5.20 M/cu mm HEMOGLOBIN 12.2 12.0 - 16.0 g/dL HEMATOCRIT 38.2 36.0 - 46.0 % MCV 88.8 80.0 - 100.0 fL MCHC 31.9 (L) 32.0 - 36.0 g/dL RDW SD 45.1 35.1 - 46.3 fL PLATELET COUNT 258 150 - 400 K/cu mm MPV 11.7 9.7 - 12.3 fL NRBC% 0.0 0.0 - 0.3 % NRBC# 0.00 0.00 - 0.02 K/cu mm NEUTROPHIL % 67.3 50.0 - 70.0 % LYMPHOCYTE % 23.8 18.0 - 42.0 % MONOCYTE % 5.9 3.5 - 9.0 % EOS % 1.7 1.0 - 3.0 % BASO % 0.8 0.0 - 2.0 % IG% 0.5 0.0 - 1.0 % NEUTROPHIL # 5.59 1.80 - 7.70 K/cu mm LYMPHOCYTE # 1.98 1.00 - 4.80 K/cu mm MONOCYTE # 0.49 0.10 - 0.90 K/cu mm EOS # 0.14 0.00 - 0.50 K/cu mm BASO # 0.07 0.00 - 0.10 K/cu mm IG# 0.04 0.00 - 0.10 K/cu mm ECHO 03/10/19-EF 60-65% PFTs dated 03/10/19-FEV1 76, [...] INDEX Is there a history of mechanical ventilation?no Is there a history of proven invasive fungal infection?no Were there clinically significant co-existing diseases or organ impairment at the time of p atient assessment prior to preparative regimen?no Comorbidities Definitions HCT-CI weighted scores Actual lab [...] > 2.5 x ULN 3 0 Karnofsky Score:90% Able to carry on normal activity, minor signs or symptoms of active d isease Assessment and recommendations Stephenieacacia Camarillo is a 53 year old female with 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 The patient received 3 cycles of AZA with most recent marrow showing CR1. Her 3rd cycle was delayed 1 month due to recurrent zoster l esions. She had no available siblings or unrelated donor options. Transplant is recommended in CR1 for best detention survival. HCT-CI 2 (mild pulmonary). Consented to Gamida trial : S [id number]: A Multicenter, Randomized, Phase III Registration Trial [...] 0, it was deemed safe to proceed. Stephenie is aware of the risk of graft [...] if symptomatic -Transfuse PPH for platelet count <10,000orsooner for s/s bleeding Infection prevention Fungal: Posaconazole Viral: valacyclovir rather than acyclovir per ID given zoster CMV:Letermovir (CMV+recipient, CMV-donor, cord blood SCT) PCP:pentam prior to d/c, Bactrim once plt>50 Toxo: Pt is toxo negative, no further testing required. Reji Carrington MD [facility] [id number] Mailcode: [id number] [place] [address] documented in t his encounter Procedure Notes Aniya Banks MD - 04/22/2019 8:37 PM PDTAssociated Order(s): ALLOGENEIC HEMATOPOIET IC STEM CELL TRANSPLANT WITH PURGINGProcedure(s): ALLOGENEIC HEMATOPOIETIC STEM CELL TRANSPL ANT WITH PURGINGPre-Procedure Diagnose(s): MDS (myelodysplastic syndrome) (HCC)Post-Procedur e Diagnose(s): MDS (myelodysplastic syndrome) (HCC)Hematopoietic Progenitor Cell Infusion Re cord Name: Stephenie Camarillo Indication for Procedure: Reconstitution of hematopoiesis Transplant Physician: Sejal De La Torre DO Person Infusing Product: Ainya Banks MD Recipient and unit identity were confirmed prior to initiation of the infusion: Yes I verify I have reviewed the documentation from the Cell Processing Lab which included ABO typing and antibody screen, ABO compatibility, and processing: Yes Bag identification was crosschecked per [facility] policy: Yes Product number was confirmed: Yes Product integrity was inspected: Yes The product characteristics, cell dose and volume are described in the Cell Processing Lab documentation Pre - Procedure Vital Signs: BP 124/64 (BP Location: Left upper arm, Patient Position: Lyin g on back) | Pulse 108 | Temp 36.7 C (98.1 F) (Oral) | Resp 16 | Ht 1.591 m (5' 2.64 ") | Wt 67.7 kg (149 lb 4 oz) | SpO2 98% | BMI 26.75 kg/m | BSA 1.73 m Pain Score: | Pain Location: | Pain Educated? | Please refer to Vitals Flowsheet (88) for vitals recorded during Infusion: Donor Source: cord blood, two units Date: 04/22/2019 Time: Donor MRN/NMDP ID:[id number] -- 12:03 Donor MRN/NMDP ID:[id number] -- 15:26 Dose: Donor MRN/EVELIOP ID:[id number] - 0/07 x 10^6 CD34+ cells / Kg Donor MRN/NMDP ID:[id number] - 0.10 x 10^6 CD34+ cells / Kg Patient was premedicated with Tylenol, Benadryl and Hydrocortisone. Patient received an in fusion of the above product intravenously through a central catheter. Vital signs were zaid tored throughout the procedure. Observation* Allergic Reaction: No Rigors / Chills: No Fever: No Cardiac Arrhythmia: No Other Cardiac: Yes:Toxicity Grade: None Blood Pressure Change: Yes, increase in SBP to ~180 after first cord blood unit, treated wi th hydralizine x 1 prior to / during infusion of second unit - Grade 2 Hypoxia: No Cough: No Thrombosis / pulm. Embolism: No Other Pulmonary: No Nausea: No Vomiting: No Pain: No Other( Hoca): No *If grade 3 or 4 toxicity occurs, please call the HCP Lab [phone]) to initiate the [facility] Ad verse Reaction Report process. Aniya Banks MD CANCER CENTERAnaid Morales - 04/22/2019 5:39 PM PDTAssociated Order(s): PROCEDURE NOTECellular Therapy Laboratory - Cell Processing Name: Stephenie Camarillo Donation Identification Number: [id number] Product Source: HPC, Cord Blood Donor Name: NMDP Donor MRN/NMDP ID: [id number] ABO/Rh: Donor: A pos; Recipient: O pos Antibody Screen: Donor: N/A; Recipient: Negative ABO Compatible: Major (recipient antidonor) Processing: Product was thawed and washed prior to infusion Bag Identification Cross Checked: Yes Donation Identification Number Confirmed: Yes Product Integrity Inspected: Yes Product Characteristics: Volume (mL): 106 TNC dose (x10^7/kg): 2.03 CD34 dose (x10^6/kg): 0.10 CD3 dose (x10^7/kg): 0.56 RBC (mL): 3 Donor CMV Status: Negative Recipient CMV Status: Negative ANAID MORALES Cellular Therapy Laboratory naid Morales - 019 4:59 PM PDTAssociated Order(s): PROCEDURE NOTECellular Therapy Laboratory - Cell Proces sing Name: Stephenie Camarillo Donation Identification Number: [id number] Product Source: HPC, Cord Blood Donor Name: [facility] Donor MRN/[facility] ID: [id number] ABO/Rh: Donor: B pos; Recipient: O pos Antibody Screen: Donor: N/A; Recipient: negative ABO Compatible: Major (recipient antidonor) Processing: Product was thawed and washed prior to infusion Bag Identification Cross Checked: Yes Donation Identification Number Confirmed: Yes Product Integrity Inspected: Yes Product Characteristics: Volume (mL): 109 TNC dose (x10^7/kg): 2.55 CD34 dose (x10^6/kg): 0.07 CD3 dose (x10^7/kg): 0.42 RBC (mL): 6 Donor CMV Status: Negative Recipient CMV Status: Negative ANAID MORAELS Cellular Therapy Laboratory documented in this encoun ter Consult Notes Madison Brown, PharmD - 05/18/2019 1:18 PM PSTFormatting of this note might be different fr om the original. 05/18/2019 1:18 PM Pharmacy Services: Tacrolimus Immunosuppression Therapy Note Current physician: Tanner Mid-level practitioner: Moon Diagnosis: Transplant type: Allo full intensity Transplant date: 04/22/19; Today is day +26 Study Protocol: yes - IRB 85507 expanded UCBT Subjective/Objective: Stephenie Camarillo is a 53 year old female with a history of MDS-LE3gjshnfdy for FluCyTBI expanded UCBT on Gamida Study (IRB 17199). Allergies: Allergies Allergen Reactions Cefepime Rash Sulfa (Sulfonamide Antibiotics) Hives Current Medication: Tacrolimus Dose and route of administration: 1.5 mg PO qAM + 1 mg Po qPM Number of doses received since last dose change: 5 Interacting medications/pertinent medication changes: letermovir and posaconazole at steady state Evidence of toxicity or adverse events: no Active GVHD: no Labs: CREATININE PLASMA (LAB) (mg/dL) Date Value 05/18/2019 0.66 05/17/2019 0.69 05/16/2019 0.73 Immunosuppressant level: tacrolimus TACROLIMUS (FK 506) (ng/mL) Date Value 05/18/2019 10.6 Target drug level: 5-15 (per study) Drug level drawn at appropriate time: 11 hour level Date (Day + ) Level Dose Comments 04/22/19 (0) 4.6 2 mg PO BID Decrease dose to 1 mg PO QAM &0.5 mg PO QPM 04/26/19 (+4) 7.1 1 mg PO QAM & 0.5 mg PO QPM Continue current dose 04/28/19 (+6) 7.1 1 mg PO qAM & 0.5 mg PO qPM Continue current dose 05/02/19 (+10) 9.3 1 mg PO qAM & 0.5 mg PO qPM Decrease dose to 0.5 mg PO BID 05/05/19 (+13) 10.2 0.5 mg PO BID Hold 1 dose, and continue tomorrow AM at the same dose 05/08/19 (+16) 5.7 0.5 mg PO BID Increase to1 mg PO QAM &0.5 mg PO QPM 05/11/19 (+19) 4.0 1 mg PO QAM &0.5 mg PO QPM Increase to 1 mg PO q12h 05/15/19 (+23) 4.7 1 mg PO q12h Increase to 1.5 mg PO qAM and 1 mg qPM 05/18/19 (+26) 10.6 1.5 mg PO qAM + 1 mg PO qPM Continue current dose Assessment/Plan: - Current drug level is within range. - The patient s kidney function is stable and liver function is stable. - Recommend to continue current dose. - Next drug level is ordered for Thursday in clinic at 0900 as a trough just prior to AM dose . Oncology Pharmacy Services will continue to follow and make recommendations as drug levels are available or the patient s clinical status changes. Please page the Oncology Pharmacis t (#[phone]) or call central inpatient pharmacy ([phone]) with questions. Madison Brown PharmD Vic Vega [facility] - 05/16/2019 5:50 PM PSTAssociated Order(s): IP CONSULT TO CLINICAL PHAR Consuelo visit summary (AVS) reviewed with Caprice Escoto Number of medications possibly subject to modification: 4 Anticipated patient discharge date: 05/18/19 Discussed with discharging provider? Yes. Time spent: 10 minutes Vic Becerril PharmD Sabino Lamas PharmD - 05/15/2019 10:37 AM PST 05/15/2019 10:37 AM Pharmacy Services: Tacrolimus Immunosuppression Therapy Note Current physician: Tanner Mid-level practitioner: Apple Bergeron Diagnosis: Transplant type:Allo full intensity Transplant date:04/22/19; Today is day+23 Study Protocol:yes -IRB 38242 expanded UCBT Subjective/Objective: Stephenie Camarillo is a 53 year old female with a history ofMDS-BN0jlmgbpjg for FluCyTB I expanded UCBT on Gamida Study (IRB 21312) Allergies: Allergies Allergen Reactions Cefepime Rash Sulfa (Sulfonamide Antibiotics) Hives Current Medication: Tacrolimus Dose and route of administration: 1 mg PO q12h Number of doses received since last dose change: 8 Interacting medications/pertinent medication changes: letermovir, posaconazole Evidence of toxicity or adverse events: yes - HTN Active 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 Labs: CREATININE PLASMA (LAB) (mg/dL) Date Value 05/15/2019 0.64 05/14/2019 0.65 05/13/2019 0.64 Immunosuppressant level: tacrolimus TACROLIMUS (FK 506) (ng/mL) Date Value 05/15/2019 4.7 (L) Target drug level: 5-15 Drug level drawn at appropriate time: yes Date (Day + ) Level Dose Comments 04/22/19 (0) 4.6 2 mg PO BID Decrease dose to 1 mg PO QAM &0.5 mg PO QPM 04/26/19 (+4) 7.1 1 mg PO QAM & 0.5 mg PO QPM Continue current dose 04/28/19 (+6) 7.1 1 mg PO qAM & 0.5 mg PO qPM Continue current dose 05/02/19 (+10) 9.3 1 mg PO qAM & 0.5 mg PO qPM Decrease dose to 0.5 mg PO BID 05/05/19 (+13) 10.2 0.5 mg PO BID Hold 1 dose, and continue tomorrow AM at the same dose 05/08/19 (+16) 5.7 0.5 mg PO BID Increase to1 mg PO QAM &0.5 mg PO QPM 05/11/19 (+19) 4.0 1 mg PO QAM &0.5 mg PO QPM Increase to 1 mg PO q12h 05/15/19 (+23) 4.7 1 mg PO q12h Increase to 1.5 mg PO qAM and 1 mg qPM Assessment/Plan: - Current drug level is below range. - The patient s kidney function is stable and liver function is stable. - Recommend to increase dose to 1.5 mg PO qAM and 1 mg qPM - Next drug level is ordered for 05/18/19 at 0900 as a trough just prior to AM dose. Oncology Pharmacy Services will continue to follow and make recommendations as drug levels are available or the patient s clinical status changes. Please page the Oncology Pharmacis t (#[phone]) or call central inpatient pharmacy ([phone]) with questions. Sabino Raygoza PharmNicoleD., BCOP Sabino Lamas PharmD - 05/11/2019 2:10 PM PST 05/11/2019 2:10 PM Pharmacy Services: Tacrolimus Immunosuppression Therapy Note Current physician: Wil Mid-level practitioner: Rubio Diagnosis: Transplant type: Allo full intensity Transplant date: 04/22/19; Today is day +19 Study Protocol:yes -IRB 38973 expanded UCBT Subjective/Objective: Stephenie Camarillo is a 53 year old female with a history ofMDS-ZU3jbhapraj for FluCyTB I expanded UCBT on Gamida Study (IRB 17154) Allergies: Allergies Allergen Reactions Cefepime Rash Sulfa (Sulfonamide Antibiotics) Hives Current Medication: Tacrolimus Dose and route of administration: 1 mg PO qAM and 0.5 mg qPM Number of doses received since last dose change: 4 Interacting medications/pertinent medication changes: letermovir, posaconazole Evidence of toxicity or adverse events: yes - HTN Active 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 Labs: CREATININE PLASMA (LAB) (mg/dL) Date Value 05/11/2019 0.62 05/10/2019 0.54 (L) 05/09/2019 0.63 Immunosuppressant level: tacrolimus TACROLIMUS (FK 506) (ng/mL) Date Value 05/11/2019 4.0 (L) Target drug level: 5-15 Drug level drawn at appropriate time: yes Date (Day + ) Level Dose Comments 04/22/19 (0) 4.6 2 mg PO BID Decrease dose to 1 mg PO QAM &0.5 mg PO QPM 04/26/19 (+4) 7.1 1 mg PO QAM & 0.5 mg PO QPM Continue current dose 04/28/19 (+6) 7.1 1 mg PO qAM & 0.5 mg PO qPM Continue current dose 05/02/19 (+10) 9.3 1 mg PO qAM & 0.5 mg PO qPM Decrease dose to 0.5 mg PO BID 05/05/19 (+13) 10.2 0.5 mg PO BID Hold 1 dose, and continue tomorrow AM at the same dose 05/08/19 (+16) 5.7 0.5 mg PO BID Increase to 1 mg PO QAM &0.5 mg PO QPM 05/11/19 (+19) 4.0 1 mg PO QAM &0.5 mg PO QPM Increase to 1 mg PO q12h Assessment/Plan: - Current drug level is below range. - The patient s kidney function is stable and liver function is stable. - Recommend to increase dose to 1 mg PO q12h. - Next drug level is ordered for 05/15/19 at 0900 as a trough just prior to AM dose. Oncology Pharmacy Services will continue to follow and make recommendations as drug levels are available or the patient s clinical status changes. Please page the Oncology Pharmacis t (#[phone]) or call central inpatient pharmacy ([phone]) with questions. Jovani Cesar PharmD - 05/08/2019 12:20 PM PST 05/08/2019 12:20 PM Pharmacy Services: Tacrolimus Immunosuppression Therapy Note Current physician: Sejal De La Torre Mid-level practitioner: Diane Grace Diagnosis: Transplant type: Allo full intensity Transplant date: 04/22/19; Today is day +16 Study Protocol:yes -IRB 05892 expanded UCBT Subjective/Objective: tSephenie Camarillo is a 53 year old female with a history ofMDS-YF3thvfuxhs for FluCyTB I expanded UCBT on Gamida Study (IRB 77904) Allergies: Allergies Allergen Reactions Sulfa (Sulfonamide Antibiotics) Hives Current Medication: Tacrolimus Dose and route of administration: 0.5 mg PO BID Number of doses received since last dose change: 5 doses Interacting medications/pertinent medication changes: letermovir/posaconazole at steady sta te Evidence of toxicity or adverse events: HTN - QC SCIENTIST anti-hypertensive medication previously h eld, resumed 05/09 Active GVHD: no Labs: CREATININE PLASMA (LAB) (mg/dL) Date Value 05/07/2019 0.73 05/07/2019 0.78 05/07/2019 0.71 Immunosuppressant level: tacrolimus TACROLIMUS (FK 506) (ng/mL) Date Value 05/08/2019 5.7 Target drug level: 5-15 ng/mL Drug level drawn at appropriate time: yes (~11 hour) Date (Day + ) Level Dose Comments 04/22/19 (0) 4.6 2 mg PO BID Decrease dose to 1 mg PO QAM &0.5 mg PO QPM 04/26/19 (+4) 7.1 1 mg PO QAM & 0.5 mg PO QPM Continue current dose 04/28/19 (+6) 7.1 1 mg PO qAM & 0.5 mg PO qPM Continue current dose 05/02/19 (+10) 9.3 1 mg PO qAM & 0.5 mg PO qPM Decrease dose to 0.5 mg PO BID 05/05/19 (+13) 10.2 0.5 mg PO BID Hold 1 dose, and continue tomorrow AM at the same dose 11/10/19 (+16) 5.7 0.5 mg PO BID Increase to 1 mg PO QAM &0.5 mg PO QPM Assessment/Plan: - Current drug level is within range. - The patient s kidney function is stable and liver function is stable. - Recommend to increase to 1 mg PO in the morning and 0.5 mg PO in the evening. Patient is at lower limit of goal and engrafting. - Next drug level is ordered for 05/11 at 0900 as a trough just prior to AM dose. Oncology Pharmacy Services will continue to follow and make recommendations as drug levels are available or the patient s clinical status changes. Please page the Oncology Pharmacis t (#[phone]) or call central inpatient pharmacy ([phone]) with questions. Jovani Garnett PharmD ini Serrano, PharmD - 05/05/2019 3:40 PM PSTFormatting of this note might be different from the lissy anderson 05/05/2019 3:41 PM Pharmacy Services: Tacrolimus Immunosuppression Therapy Note Current physician: Sukhi Millan Mid-level practitioner: Diane Grace Diagnosis: Transplant type: Allo full intensity Transplant date: 04/22/19; Today is day +13 Study Protocol:yes -IRB 56068 expanded UCBT Subjective/Objective: Stephenie Camarillo is a 53 year old female with a history ofMDS-ZN9ufccjoyl for FluCyTB I expanded UCBT on Gamida Study (IRB 98253) Allergies: Allergies Allergen Reactions Sulfa (Sulfonamide Antibiotics) Hives Current Medication: Tacrolimus Dose and route of administration: 0.5 mg PO BID Number of doses received since last dose change: 5 doses Interacting medications/pertinent medication changes: letermovir/posaconazole at steady sta te Evidence of toxicity or adverse events: no Active GVHD: no Labs: CREATININE PLASMA (LAB) (mg/dL) Date Value 05/05/2019 0.60 05/04/2019 0.60 05/03/2019 0.65 Immunosuppressant level: tacrolimus TACROLIMUS (FK 506) (ng/mL) Date Value 05/05/2019 10.2 Target drug level: 5-10 ng/mL Drug level drawn at appropriate time: yes; 12 hr level Date (Day + ) Level Dose Comments 04/22/19 (0) 4.6 2 mg PO BID Decrease dose to 1 mg PO QAM &0.5 mg PO QPM 04/26/19 (+4) 7.1 1 mg PO QAM & 0.5 mg PO QPM Continue current dose 04/28/19 (+6) 7.1 1 mg PO qAM & 0.5 mg PO qPM Continue current dose 05/02/19 (+10) 9.3 1 mg PO qAM & 0.5 mg PO qPM Decrease dose to 0.5 mg PO BID 05/05/19 (+13) 10.2 0.5 mg PO BID Hold 1 dose, and continue tomorrow AM at the same dose Assessment/Plan: - Current drug level is slightly above range. - The patient s kidney function is stable and liver function is unstable- mild T-bili karmen vation. - Recommend to hold for 1 doses and resume tomorrow at 0.5 mg PO BID. - Next drug level is ordered for 05/08 at 0900 as a trough just prior to AM dose. Oncology Pharmacy Services will continue to follow and make recommendations as drug levels are available or the patient s clinical status changes. Please page the Oncology Pharmacis t (#[phone] or call central inpatient pharmacy ([phone]) with questions. Thank you for the consult, Minor Serrano PharmD Tima Kumar MD - 05/04/2019 4:25 PM PSTAssociated Order(s): IP CONSULT TO DERMATOLOGYFormatting of ladonna s note might be different from the original. DERMATOLOGY INPATIENT CONSULTATION VISIT CONSULT QUESTION: GVHD vs Engraftment Syndrome? CONSULT REQUESTED BY: HEATHER Paredes DERMATOLOGY RESIDENT: Tima Norton MD DERMATOLOGY ATTENDING: Bartolo Jarrell MD HISTORY OF PRESENT ILLNESS: Stephenie Camarillo is a 53 y.o. 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 Rash was first appreciated approximately 2-3 da ys ago and has been progressing, especially over the last 12 hours. Located on the ears, justine k, upper extremities and dorsal hands. Patient denies associated pain or itching. Initially noted by primary team as more follicular in appearance, but has gradually progressed and ado pted a more maculopapular appearance. Previously febrile on 04/28, with subsequent work up r evealing strep bacteremia and treatment consisting of cefepime. Patient has remained afebril e over the last several days. Reports some loose stools. C diff and GI path panels negative. Patient was noted to be hypoxic 04/30 which required 1L of supplemental oxygen. Improving w ith diuresis. TTE with preserved EF. PMHx: Diagnosis Date Noted Immunocompromised state due to drug therapy 04/20/2019 Pancytopenia 04/20/2019 [facility] [place] [place] stem cell transplant 04/15/2019 Deep vein thrombosis (DVT) of both upper extremities 01/17/2019 MDS (myelodysplastic syndrome) 11/30/2018 FHx: Melanoma - father SHx: Socioeconomic History Marital status: Single Tobacco Use Smoking status: Former Smoker Packs/day: 1.50 Years: 28.00 Pack years: 42.00 Types: Cigarettes Last attempt to quit: 06/29/2004 Years since quittin.8 Smokeless tobacco: Never Used Substance and Sexual Activity Alcohol use: Not Currently Comment: very occasionally Social History Narrative Lives with niece in [facility] Meds: acetaminophen (TYLENOL) tablet 325-650 mg, 325-650 mg, oral, Q4H PRN acyclovir (ZOVIRAX) 450 mg in NaCl 0.9 % (NS) IV, 450 mg, intravenous, Q12H PRN alteplase (CATHFLO ACTIVASE) injection 2 mg, 2 mg, Intracatheter, PRN aluminum-magnesium hydroxide-simethicone (MAALOX; MYLANTA) 200-200-20 mg/5 mL suspension 30 mL, 30 mL, oral, Q3H PRN ceFEPIme (MAXIPIME) injection 2 g, 2 g, intravenous, Q8H dicyclomine (BENTYL) tablet 20 mg, 20 mg, oral, QID PRN diphenhydrAMINE (BENADRYL) capsule 25-50 mg, 25-50 mg, oral, Q6H PRN diphenhydrAMINE (BENADRYL) injection 25-50 mg, 25-50 mg, intravenous, PRN fbpizqaqgjVKSEH-hegoqzpzu-KLNTUM (SPECIAL MOUTHWASH) suspension (compound) 10-15 mL, 10-15 mL, oral, Q1H PRN EPINEPHrine HCl (PF) (ADRENALIN PF) injection 0.3 mg, 0.3 mg, intramuscular, PRN escitalopram oxalate (LEXAPRO) tablet 20 mg, 20 mg, oral, DAILY famotidine (PEPCID) injection 20 mg, 20 mg, intravenous, PRN famotidine (PEPCID) tablet 20 mg, 20 mg, oral, BID fentaNYL (SUBLIMAZE) injection 25-50 mcg, 25-50 mcg, intravenous, Q2H PRN filgrastim-sndz (ZARXIO) injection 300 mcg, 5 mcg/kg (Treatment Plan Recorded), subcutaneou s, QPM AT 1700 glycerin-mineral oil (LUBRIDERM SENSITIVE LANOLIN FREE) lotion, , topical, Q2H PRN haloperidol (HALDOL) tablet 0.5-1.5 mg, 0.5-1.5 mg, oral, Q4H PRN haloperidol lactate (HALDOL) injection 0.5-1.5 mg, 0.5-1.5 mg, intravenous, Q4H PRN hydrocortisone (PROCTOZONE) 2.5 % rectal cream, , topical, TID hydrocortisone sodium succinate (PF) (SOLU-CORTEF) injection 100 mg, 100 mg, intravenous, P RN letermovir (PREVYMIS) tablet 480 mg, 480 mg, oral, DAILY loperamide (IMODIUM) capsule 2 mg, 2 mg, oral, PRN magnesium sulfate in water IV (RTU) 4 g, 4 g, intravenous, PRN magnesium sulfate IV 8 g, 8 g, intravenous, PRN menthol (sugar free) (COUGH DROP) lozenge 5 mg, 1 lozenge, oral, Q1H PRN mycophenolate (CELLCEPT) tablet 1,000 mg, 15 mg/kg (Treatment Plan Recorded), oral, TID NIFEdipine 0.3 %-lidocaine 1.5% topical, , topical, TID nystatin-zinc oxide-lidocaine (NDX) ointment (compound), , topical, Q1H PRN ondansetron ODT (ZOFRAN ODT) tablet 8 mg, 8 mg, oral, Q12H oxyCODONE (immediate release) (ROXICODONE) tablet 5-15 mg, 5-15 mg, oral, Q4H PRN oxymetazoline (AFRIN) 0.05 % nasal spray 2 spray, 2 spray, both nostrils, PRN pentamidine (PENTAM) IV 300 mg, 300 mg, intravenous, Q4W prochlorperazine (COMPAZINE) injection 5-10 mg, 5-10 mg, intravenous, Q6H PRN prochlorperazine (COMPAZINE) tablet 5-10 mg, 5-10 mg, oral, Q6H PRN ramelteon (ROZEREM) tablet 8 mg, 8 mg, oral, HS PRN saliva substitute (MOUTH KOTE) spray 1 spray, 1 spray, oral, Q1H PRN senna-docusate (SENOKOT S) 8.6-50 mg 1-2 tablet, 1-2 tablet, oral, Q12H PRN simethicone chew (MYLICON) tablet 80 mg, 80 mg, oral, TID PRN sodium chloride (OCEAN) 0.65 % nasal spray 2 spray, 2 spray, both nostrils, PRN sodium chloride 0.9 % (NS) IV infusion, 1,000 mL, intravenous, HS PRN sodium phosphate IV 30 mmol, 30 mmol, intravenous, PRN sodium phosphate IV 40 mmol, 40 mmol, intravenous, PRN tacrolimus capsule 0.5 mg, 0.5 mg, oral, BID, Sukhi Millan MD triamcinolone acetonide (KENALOG) 0.1 % cream, , topical, BID ursodiol (ACTIGALL) tablet 500 mg, 500 mg, oral, BID valACYclovir (VALTREX) tablet 500 mg, 500 mg, oral, BID Allergies: Allergen Reactions Sulfa (Sulfonamide Antibiotics) Hives Review of Systems: Other than stated in the HPI and PMHx, the patient denied any fever, chills, abdominal pain , nausea, vomiting, diarrhea, MCARTHUR, vision changes, swollen lymph nodes, dizziness, mouth lesi ons, genital lesions or urinary symptoms, weight change, psychiatric changes, arthalgias or muscle aches, chest pain, weakness, or respiratory complaints. PE: Last Vitals: BP 149/69 (BP Location: Right lower arm, Patient Position: Sitting) | Pulse 8 9 | Temp 37 C (98.6 F) (Oral) | Resp (!) 28 | Ht 1.591 m (5' 2.64") | Wt 73.5 kg (16 2 lb 0.6 oz) | SpO2 94% | BMI 29.04 kg/m | BSA 1.8 m GEN-Well appearing, pleasant, no apparent distress. Normal mood and affect. Skin-A complete skin exam was performed including examination of the scalp, face, ears, lip s, eyelids, neck, chest, abdomen, back, buttocks, bilateral arms, bilateral legs, hands, fee t and were notable for the following: - Bilateral ear helices and antihelices with red, erythematous patches; relative sparing of the lobe - Upper back, upper chest and proximal upper extremities with symmetric, bright pink, subtl e macules occasionally coalescing into patches - Bilateral distal dorsal hands and fingers with bright red, erythematous patches sparing t he MCPs, PIPs and DIPs LABS: 05/02/192205/03/1912305/04/1952 WBC <0.10* <0.10* <0.10* RBC 2.75* 2.54* 2.64* HB 7.8* 7.1* 7.4* HCT 23.0* 21.0* 21.9* PLT 9* 4* 1* 05/02/192205/03/1912205/04/1952 NA 136 139 138 K 2.9* 3.0* 3.2* CL 103 108 108 BICARB 26 26 25 BUN 9 9 10 CR 0.56* 0.65 0.60 GLU 102* 121* 111* CA 8.2* 7.8* 7.9* 05/02/192205/03/1912205/04/1952 AST 13 10 9 ALT 16 13 12 AP 89 83 87 TBILI 0.9 0.8 1.0 TP 6.2* 6.0* 6.0* ALB 2.6* 2.4* 2.4* ASSESSMENT/RECOMMENDATIONS: Stephenie Camarillo is a 53 y.o. 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 Differential includes engraftment syndrome whic h can be associated with a nonspecific erythematous skin eruption, fever and pulmonary edema (although source of fever appears to be strep bacteremia and have since resolved). Addition ally, acute graft vs host disease is on the differential and can manifest with initial predi lection for acral areas (such as dorsal hands and ears). Finally, the differential for GVHD tends to include drug and viral exanthems. Given the diagnostic differential, discussed the utility of pursuing biopsy for additional information (although histological findings for th felisha entities can be at times indistinguishable). At this time dermatology has the following recommendations: -- Follow up biopsy results -- Apply Vaseline and change dressing at biopsy site daily -- Biopsy sutures to be removed 05/18/2019 -- OK to apply triamcinolone 0.1% ointment BID to affected areas Thank you for the opportunity to participate in Stephenie's care. We will continue to follow e ripherally only at this time. Please contact us with further questions. The patient was discussed with Mecca Birmingham and staffed with dermatology attending, Dr. Adeline Jarrell. Tima Norton MD [facility] Department of Dermatology, PG-Y4 Pager: [phone] BIOPSY PROCEDURE NOTE: Prior to beginning the procedure, patient identity was verified, as well as the procedure to be performed and the site. All equipment required was ready and available. The patient w as positioned appropriately. Punch Biopsy - 4 mm R arm. After PARQ addressed and scar factors discussed, the area was prepped with ETOH. 1.5ml of 1 % Lidocaine with Epinephrine was used for local anesthesia. A punch biopsy was performed and closed with 4.0 nylon suture. The site was dressed with petrolatum and a bandage. Wound car e instructions given. Patient reports no pain after the procedure. Associated attestation - Bartolo Jarrell MD - 05/04/2019 7:55 PM PSTI have personally rev iewed the patient's past medical history, medications, allergies, progress notes, labs, cult ure results, and pathology results. I have personally examined the patient. I have read and reviewed the resident physician's excellent note and agree with the assessment and plan. I was personally present for the entire procedure performed. Mini Serrano, PharmD - 09/2018 12:52 PM PST 05/02/2019 12:52 PM Pharmacy Services: Tacrolimus Immunosuppression Therapy Note Current physician: Sukhi Millan Mid-level practitioner: Mecca Birmingham Diagnosis: Transplant type: Allo full intensity Transplant date: 04/22/19; Today is day +10 Study Protocol:yes -IRB 40805 expanded UCBT Subjective/Objective: Stephenie Camarillo is a 53 year old female with a history ofMDS-FB2hljmbfgn for FluCyTB I expanded UCBT on Gamida Study (IRB 23518) Allergies: Allergies Allergen Reactions Sulfa (Sulfonamide Antibiotics) Hives Current Medication: Tacrolimus Dose and route of administration: 1 mg PO qAM and 0.5 mg PO qPM Number of doses received since last dose change: 19 doses Interacting medications/pertinent medication changes: letermovir/posaconazole at steady sta te Evidence of toxicity or adverse events: no Active GVHD: no Labs: CREATININE PLASMA (LAB) (mg/dL) Date Value 05/02/2019 0.56 (L) 05/01/2019 0.56 (L) 04/30/2019 0.56 (L) Immunosuppressant level: tacrolimus TACROLIMUS (FK 506) (ng/mL) Date Value 05/02/2019 9.3 Target drug level: 5-10 ng/mL Drug level drawn at appropriate time: yes; ~12.5 hr level Date (Day + ) Level Dose Comments 04/22/19 (0) 4.6 2 mg PO BID Decrease dose to 1 mg PO QAM & 0.5 mg PO QPM 04/26/19 (+4) 7.1 1 mg PO QAM & 0.5 mg PO QPM Continue current dose 04/28/19 (+6) 7.1 1 mg PO qAM & 0.5 mg PO qPM Continue current dose 05/02/19 (+10) 9.3 1 mg PO qAM & 0.5 mg PO qPM Decrease dose to 0.5 mg PO BID Assessment/Plan: - Current drug level is within range. - The patient s kidney function is stable and liver function is stable. - Recommend to decrease dose to 0.5 mg PO BID. Increase in level may reflect posaconazole C YP inhibition coming to steady state. Therefore, will decrease dose slightly to avoid furthe r accumulation. - Next drug level is ordered for , 05/05 at 0900 as a trough just prior to AM dose. Oncology Pharmacy Services will continue to follow and make recommendations as drug levels are available or the patient s clinical status changes. Please page the Oncology Pharmacis t (#[phone]) or call central inpatient pharmacy ([phone]) with questions. Thank you for the consult, Minor Serrano PharmD Jordan Zaldivar MD - 05/02/2019 12:42 PM PST INPATIENT INFECTIOUS DISEASE FOLLOWUP CONSULT NOTE Infectious Disease Team Transplant Patient: Stephenie Camarillo Room/Bed: 05/29 Requesting Provider: ID Attending Physician: Corbin PCP: LACY Perez Author: Jordan Lee MD Date of Admission: 04/15/2019 Hospital Day: 17 Date of Service: 05/02/2019 Chief Complaint: Strep mitis bacteremia Neutropenic fever Interval Events: Remains febrile. Surveillance cultures negative. Subjective: Still having diarrhea/hemorrhoidal pain. Mildly more SOB, she relates to fluid infusions. Physical Exam: Last Vitals: BP 129/55 (BP Location: Right upper arm, Patient Position: Lying left side) | Pulse 81 | Temp 36.6 C (97.9 F) (Oral) | Resp 16 | Ht 1.591 m (5' 2.64") | Wt 72.7 kg (160 lb 4.4 oz) | SpO2 94% | BMI 28.72 kg/m | BSA 1.79 m 24 Hour Vital Min/Max: Systolic (24hrs), Av , Min:113 , Max:138 Diastolic (24hrs), Av, Min:55, Max:79 Pulse Min: 78 Max: 89 Temp Min: 36.3 C (97.3 F) Max: 38.4 C (101.1 F) Resp Min: 16 Max: 18 SpO2 Min: 88 % Max: 96 % Intake/Output Summary (Last 24 hours) at 05/02/2019 1242 Last data filed at 05/02/2019 1200 Gross per 24 hour Intake 3224 ml Output 3480 ml Net -256 ml General Appearance: comfortable, NAD HEENT: EOMI, clear oropharynx, MMM, bilateral ulcers behind upper molars, mildly improved Respiratory: bibasilar crackles, normal effort Cardiovascular: RRR, +s1, s2, no m/r Gastrointestinal: +BS, soft, NT/ND Skin: small papular rash right posterior shoulder, not itchy, mildly erythematous Extremities: 1+ LE edema, W/WP Neurologic: speech wnl, moves all 4 ext spontaneously Psych: Mood, mentation wnl Lines/drains: Left chest tunneled line - c/d/i Data: Recent Labs 04/21/19 0022 04/21/19 1655 04/22/19 0011 04/30/19 0048 05/01/19 0015 05/02/19 0023 05/02/19 1051 WBC 2.14* 1.65* 0.91* < > <0.10* <0.10* <0.10* -- RBC 3.56* 4.00 3.92* < > 2.19* 2.90* 2.75* -- HB 10.1* 11.3* 10.9* < > 6.2* 8.2* 7.8* -- HCT 31.6* 35.0* 34.5* < > 18.3* 24.0* 23.0* -- PLT 162 168 161 < > 5* 3* 9* 7* NEUTROPERC 94.0* 99.1* 96.5* -- -- -- -- -- LYMPHPERC 0.9* 0.9* 1.8* -- -- -- -- -- MONOPERC 0.0* 0.0* 0.0* -- -- -- -- -- BASOPERC 0.9 0.0 0.0 -- -- -- -- -- EOSPERC 0.5* 0.0* 1.7 -- -- -- -- -- < > = values in this interval not displayed. Recent Labs 04/30/19 1336 05/01/19 0015 05/02/19 0023 NA 138 139 136 K 3.2* 3.1* 2.9* CL 103 103 103 BICARB 31 29 26 BUN 8 9 9 CR 0.56* 0.56* 0.56* GLU 95 91 102* CA 7.9* 7.8* 8.2* Recent Labs 04/30/19 1336 05/01/19 0015 05/02/19 0023 AST 16 13 13 ALT 15 16 16 AP 96 89 89 TBILI 1.0 1.0 0.9 TP 6.3* 6.0* 6.2* ALB 2.6* 2.6* 2.6* Lab Results Lab Test Name Results Date/Time APTT 29.2 04/15/19 FIBRINOGEN 444 04/15/19 No results found for: ESR No results found for: CRP Antibiotics: Cefepime - 04/17-04/20, --TBD Levofloxacin 04/20-04/28 Prophylaxis: Letermovir Posaconazole Pentamidine Valacyclovir Microbiology data: Blood cultures - 04/29, - NGTD Blood cultures - 04/28 - strep mitis Blood cultures - - no growth Stool viral/bacterial panel -04/25 - negative C diff - 04/25 - negative Imaging: None new Assessment and Plan: 53 y.o. lady with a past medical history significant for herpes zoster, prior PICC associat ed DVT, MDS now post FluCyTBI conditioned UCB transplant (04/22/19), who ID is consulted for strep mitis bacteremia in the setting of neutropenic fevers. # Strep mitis bacteremia w/ neutropenic fever - Strep mitis bacteremia, likely from oral ul cerations. Clinically, pt is doing well w/o hemodynamic instability. Surveillance cultures s howing no new growth. - Continue cefepime for strep and neutropenic fever - continue for at least 7 days or until pt no longer neutropenic, whichever is last. If pt is starting to recover counts and will g o home prior to being no longer neutropenic, please re-consult ID for oral abx options. - ID will sign off. Please call back with questions. # Diarrhea - infectious workup for this has been unrevealing. Suspect 2/2 chemo at this lazara e. If fevers persist without new microbiologic data though, consider CT A/P w/ contrast for further evaluation. Also consider stool parasite panel as pt around numerous animals at home Recommendations discussed with primary team. This patient was staffed with Dr. Alaniz, who agrees with the above assessment and plan unless otherwise documented. Thank you for the consult. We will sign off. Jordan Lee MD, 05/02/19 , 12:42 PM Infectious Diseases Fellow Pager: [phone] Associated attestation - Eb Alaniz MD - 05/02/2019 8:10 PM PSTI personally interv iewed the patient, performed the pertinent parts of the physical examination and personally formulated the plan with Dr Lee and I agree with his documentation and have documented any additions or exceptions. Feeling well. Still neutropenic and mucositis present. Still with hemorrhoidal pain. Cefepi me covering Strep mitis and GNR.Eb Alaniz MD - 05/01/2019 9:10 PM PST INPATIENT INFECTIOUS DISEASES NOTE Hospital Day:16 Interval history: Patient still neutropenic with low grade fevers. Has sensitive strep mitis in blood. No abd ominal pain. Mostly diarrhea and hemorrhoidal pain. Last Vitals: BP 138/66 (BP Location: Right upper arm, Patient Position: Sitting) | Pulse 8 7 | Temp 38.4 C (101.1 F) (Axillary) | Resp 18 | Ht 1.591 m (5' 2.64") | Wt 75.6 kg (166 lb 10.7 oz) | SpO2 92% | BMI 29.87 kg/m | BSA 1.83 m Temp (24hrs), Av.9 C (98.4 F), Min:36.3 C (97.3 F), Max:38.4 C (101.1 F) Intake/Output Summary (Last 24 hours) at 05/01/20192109 Last data filed at 05/01/2019 1858 Gross per 24 hour Intake 2978 ml Output 2825 ml Net 153 ml General: A&O, NAD HEENT: PERRLA,o/p clear with mucositis on upper jaw Neck: supple, no LAD Respiratory: CTAB Cardiovascular: S1, S2 RRR, no m/r/g Gastrointestinal: NABS, soft, nt, nd, no hsm Skin: ecchymoses Ext: No cce INPATIENT MEDS: acetaminophen (TYLENOL) tablet 325-650 mg, 325-650 mg, oral, Q4H PRN acyclovir (ZOVIRAX) 450 mg in NaCl 0.9 % (NS) IV, 450 mg, intravenous, Q12H PRN alteplase (CATHFLO ACTIVASE) injection 2 mg, 2 mg, Intracatheter, PRN aluminum-magnesium hydroxide-simethicone (MAALOX; MYLANTA) 200-200-20 mg/5 mL suspension 30 mL, 30 mL, oral, Q3H PRN ceFEPIme (MAXIPIME) injection 2 g, 2 g, intravenous, Q8H dicyclomine (BENTYL) tablet 20 mg, 20 mg, oral, QID PRN diphenhydrAMINE (BENADRYL) capsule 25-50 mg, 25-50 mg, oral, Q6H PRN diphenhydrAMINE (BENADRYL) injection 25-50 mg, 25-50 mg, intravenous, PRN awibszunfdCMXLC-tywhtjfzv-PBZPXM (SPECIAL MOUTHWASH) suspension (compound) 10-15 mL, 10-15 mL, oral, Q1H PRN EPINEPHrine HCl (PF) (ADRENALIN PF) injection 0.3 mg, 0.3 mg, intramuscular, PRN escitalopram oxalate (LEXAPRO) tablet 20 mg, 20 mg, oral, DAILY famotidine (PEPCID) injection 20 mg, 20 mg, intravenous, PRN famotidine (PEPCID) tablet 20 mg, 20 mg, oral, BID fentaNYL (SUBLIMAZE) injection 25-50 mcg, 25-50 mcg, intravenous, Q2H PRN filgrastim-sndz (ZARXIO) injection 300 mcg, 5 mcg/kg (Treatment Plan Recorded), subcutaneou s, QPM AT 1700 glycerin-mineral oil (LUBRIDERM SENSITIVE LANOLIN FREE) lotion, , topical, Q2H PRN haloperidol (HALDOL) tablet 0.5-1.5 mg, 0.5-1.5 mg, oral, Q4H PRN haloperidol lactate (HALDOL) injection 0.5-1.5 mg, 0.5-1.5 mg, intravenous, Q4H PRN hydrocortisone (PROCTOZONE) 2.5 % rectal cream, , topical, TID hydrocortisone sodium succinate (PF) (SOLU-CORTEF) injection 100 mg, 100 mg, intravenous, P RN letermovir (PREVYMIS) tablet 480 mg, 480 mg, oral, DAILY loperamide (IMODIUM) capsule 2 mg, 2 mg, oral, PRN magnesium sulfate in water IV (RTU) 4 g, 4 g, intravenous, PRN magnesium sulfate IV 8 g, 8 g, intravenous, PRN menthol (sugar free) (COUGH DROP) lozenge 5 mg, 1 lozenge, oral, Q1H PRN mycophenolate (CELLCEPT) tablet 1,000 mg, 15 mg/kg (Treatment Plan Recorded), oral, TID NIFEdipine 0.3 %-lidocaine 1.5% topical, , topical, TID nystatin-zinc oxide-lidocaine (NDX) ointment (compound), , topical, Q1H PRN ondansetron ODT (ZOFRAN ODT) tablet 8 mg, 8 mg, oral, Q12H oxyCODONE (immediate release) (ROXICODONE) tablet 5-15 mg, 5-15 mg, oral, Q4H PRN oxymetazoline (AFRIN) 0.05 % nasal spray 2 spray, 2 spray, both nostrils, PRN pentamidine (PENTAM) IV 300 mg, 300 mg, intravenous, Q4W [COMPLETED] posaconazole DR (NOXAFIL) tablet 300 mg, 300 mg, oral, BID FOLLOWED BY posa conazole DR (NOXAFIL) tablet 300 mg, 300 mg, oral, DAILY potassium chloride IV (central line) 40 mEq, 40 mEq, intravenous, PRN OR potassium chlo ride IV (central line) 60 mEq, 60 mEq, intravenous, PRN potassium chloride SR (KLOR-CON) tablet 40 mEq, 40 mEq, oral, PRN potassium phosphate IV (CENTRAL LINE) 30 mmol, 30 mmol, intravenous, PRN OR potassium p hosphate IV (CENTRAL LINE) 40 mmol, 40 mmol, intravenous, PRN prochlorperazine (COMPAZINE) injection 5-10 mg, 5-10 mg, intravenous, Q6H PRN prochlorperazine (COMPAZINE) tablet 5-10 mg, 5-10 mg, oral, Q6H PRN ramelteon (ROZEREM) tablet 8 mg, 8 mg, oral, HS PRN saliva substitute (MOUTH KOTE) spray 1 spray, 1 spray, oral, Q1H PRN senna-docusate (SENOKOT S) 8.6-50 mg 1-2 tablet, 1-2 tablet, oral, Q12H PRN simethicone chew (MYLICON) tablet 80 mg, 80 mg, oral, TID PRN sodium chloride (OCEAN) 0.65 % nasal spray 2 spray, 2 spray, both nostrils, PRN sodium chloride 0.9 % (NS) IV infusion, 1,000 mL, intravenous, HS PRN sodium phosphate IV 30 mmol, 30 mmol, intravenous, PRN sodium phosphate IV 40 mmol, 40 mmol, intravenous, PRN tacrolimus capsule 0.5 mg, 0.5 mg, oral, QPM tacrolimus capsule 1 mg, 1 mg, oral, QAM ursodiol (ACTIGALL) tablet 500 mg, 500 mg, oral, BID valACYclovir (VALTREX) tablet 500 mg, 500 mg, oral, BID Laboratory Data: Chemistries: Last 72 Hours (or 3 results): Recent Labs 04/29/19 0000 04/30/19 0050 04/30/19 1336 05/01/19 0015 NA 138 140 138 139 K 3.3* 3.0* 3.2* 3.1* CL 106 106 103 103 BICARB 28 27 31 29 BUN 6 6 8 9 CR 0.50* 0.49* 0.56* 0.56* CA 8.0* 7.9* 7.9* 7.8* MG 1.6 1.9 -- 1.3* PO4 2.3* 2.6 -- 2.4 CBC with diff last 72 hours (or 3 results) Recent Labs 04/29/19 0000 04/30/19 0048 05/01/19 0015 WBC <0.10* <0.10* <0.10* HB 7.2* 6.2* 8.2* HCT 21.4* 18.3* 24.0* PLT 8* 5* 3* URINE CULTURE [facility] (no units) Date Value 04/28/2019 No growth (<1000 cfu/mL) after 24 hours CULTURE RESULT (no units) Date Value 04/29/2019 No growth to date. 04/29/2019 No growth to date. 04/28/2019 (AA) Not tested by molecular method, see culture report. 04/28/2019 Streptococcus mitis group (A) 04/28/2019 Streptococcus species (AA) 04/28/2019 Streptococcus mitis group (A) 04/22/2019 Final Report:No Bacteria or Yeast isolated at 5 days. 04/22/2019 Final Report:No Bacteria or Yeast isolated at 5 days. 04/17/2019 Final Report:No Bacteria or Yeast isolated at 5 days. Assessment: 53 yo woman with Allo SCT 10 days ago with Streo mitis sepsis and febrile neutropenia. Cefe pime is effective against the Strep. She is on current prophylaxis with posaconzole and ACV Recommendations: 1. Continue cefepime while neutropenic 2. Continue posaconazole and ACV Eb Alaniz MD Jordan Zaldivar M D - 04/29/2019 1:50 PM PDTAssociated Order(s): IP CONSULT TO TRANSPLANT INFECTIOUS DISEASEF ormatting of this note might be different from the original. INPATIENT INFECTIOUS DISEASE CONSULT NOTE Infectious Disease Team Transplant Patient: Stephenie Camarillo Room/Bed: 05/29 Requesting Provider: ID Attending Physician: Corbin PCP: LACY Perez Author: Jordan Lee MD Date of Admission: 04/15/2019 Hospital Day: 14 Date of Service: 04/29/2019 Chief Complaint/Reason for Consult: Strep bacteremia, neutropenic fever HPI: Stephenie Camarillo is a 53 y.o. lady with a past medical history significant for herpes zos ter 12/2018, prior PICC associated DVT, MDS now day 7 post FluCyTBI conditioned UCB transplan t (04/22/19), who ID is consulted strep bacteremia in the setting of neutropenic fevers. Pt admitted 04/15 for conditioning. Noted a non-neutropenic fever on 04/17 - was started o n cefepime. Blood cultures were negative x72 hours and she defervesced - was de-escalated to levofloxacin prophylaxis on 04/20. Remained afebrile until 04/28 when she spiked to 100.6. Was neutropenic at this point, levofloxacin stopped and restarted on cefepime. CXR showed cl ear lungs w/ trace bilateral effusions.Pt had 2 peripheral sets and 1 catheter set of cultur es sent - the port cultures have returned with a streptococcus species on culture, 1 of the peripheral sets is showing GPC on the gram stain. Pt has been having diarrhea over the past 2 weeks. C diff and a GI pathogen panel (viral, bacterial) were negative. Reports "spastic" diarrhea - gets a cramp and then immediately has to get to a bathroom to stool. No blood in stool. Notes that stool is particularly malodoro us, consistent with " fish." Also has a hemorrhoid that has been quite painful. Denies c hest pain, SOB. Has sinus congestion/rhinorrhea and a mild sore throat. Denies sores in mout h, has an area posterior left maxilla that is painful that she relates to a "sharp" wisdom t ooth. No unusual joint/MSK pains. No headache/neck pain/stiffness. Relevant Infectious Disease History: shingles 12/2018, treated w/ IV acyclovir-->valacyclovi r and continued for prophylaxis Travel History: Born in [place], [place] lived [place] in [place] years ago. No international travel. PPD Status: Negative years ago. Reports a co-worker had a positive PPD and was treated for latent TB Pets: Lives in [facility] on niece/niece's husbands yard. Niece has 5 dogs, 2 cats, 6 rabbits, 2 chickens, 1 ferret. Pt tries to stay away from rabbits/ferret/chickens. Does pet the dogs /cats, is not involved in cleaning up after them. No bites/scratches. Ill Contacts: Denies Residence: As above Sexual history: No sexual activity in past year. No STI history. 1 male sexual partner. ROS: A review of systems was performed and was negative except as outlined in the HPI PMH: Past Medical History: Diagnosis Date Fibroid HTN (hypertension) Malignant neoplasm (HCC) Miscarriage Past Surgical History: Procedure Laterality Date breast fibroid 1979 fibroid removal left breast HYSTERECTOMY 2007 Prior Medications: Medications Prior to Admission Medication Sig Dispense Refill apixaban 2.5 mg oral tablet Take 1 tablet by mouth two times daily. 60 tablet 2 escitalopram oxalate 10 mg oral tablet Take 20 mg by mouth once daily. ondansetron 8 mg oral tablet Take 8 mg by mouth every twelve hours as needed. potassium chloride SR 20 mEq oral tablet,ER particles/crystals Take 1 tablet by mouth o nce daily. 5 tablet 2 triamterene-hydrochlorothiazide 37.5-25 mg oral capsule Take 1 capsule by mouth once da nereyda. valACYclovir 500 mg oral tablet Take 1 tablet by mouth two times daily. Indications: vi ral infection prevention (Patient not taking: Reported on 04/14/2019) 60 tablet 11 Current Medications: Current Facility-Administered Medications Medication Dose Route Frequency acetaminophen (TYLENOL) tablet 325-650 mg 325-650 mg oral Q4H PRN acyclovir (ZOVIRAX) 450 mg in NaCl 0.9 % (NS) IV 450 mg intravenous Q12H PRN alteplase (CATHFLO ACTIVASE) injection 2 mg 2 mg Intracatheter PRN aluminum-magnesium hydroxide-simethicone (MAALOX; MYLANTA) 200-200-20 mg/5 mL suspensio n 30 mL 30 mL oral Q3H PRN ceFEPIme (MAXIPIME) injection 2 g 2 g intravenous Q8H dicyclomine (BENTYL) tablet 20 mg 20 mg oral QID PRN diphenhydrAMINE (BENADRYL) capsule 25-50 mg 25-50 mg oral Q6H PRN diphenhydrAMINE (BENADRYL) injection 25-50 mg 25-50 mg intravenous PRN qtlboeyehdIOLFH-yqqcrkigb-RHLLJQ (SPECIAL MOUTHWASH) suspension (compound) 10-15 mL 10 -15 mL oral Q1H PRN EPINEPHrine HCl (PF) (ADRENALIN PF) injection 0.3 mg 0.3 mg intramuscular PRN escitalopram oxalate (LEXAPRO) tablet 20 mg 20 mg oral DAILY famotidine (PEPCID) injection 20 mg 20 mg intravenous PRN famotidine (PEPCID) tablet 20 mg 20 mg oral BID fentaNYL (SUBLIMAZE) injection 25-50 mcg 25-50 mcg intravenous Q1H PRN filgrastim-sndz (ZARXIO) injection 300 mcg 5 mcg/kg (Treatment Plan Recorded) subcutan eous QPM AT 1700 glycerin-mineral oil (LUBRIDERM SENSITIVE LANOLIN FREE) lotion topical Q2H PRN haloperidol (HALDOL) tablet 0.5-1.5 mg 0.5-1.5 mg oral Q4H PRN haloperidol lactate (HALDOL) injection 0.5-1.5 mg 0.5-1.5 mg intravenous Q4H PRN hydrocortisone sodium succinate (PF) (SOLU-CORTEF) injection 100 mg 100 mg intravenous PRN HYDROmorphone (DILAUDID) injection 0.2-0.5 mg 0.2-0.5 mg intravenous Q1H PRN letermovir (PREVYMIS) tablet 480 mg 480 mg oral DAILY loperamide (IMODIUM) capsule 2 mg 2 mg oral PRN magnesium sulfate in water IV (RTU) 4 g 4 g intravenous PRN magnesium sulfate IV 8 g 8 g intravenous PRN menthol (sugar free) (COUGH DROP) lozenge 5 mg 1 lozenge oral Q1H PRN mycophenolate (CELLCEPT) tablet 1,000 mg 15 mg/kg (Treatment Plan Recorded) oral TID NIFEdipine 0.3 %-lidocaine 1.5% topical topical TID nystatin-zinc oxide-lidocaine (NDX) ointment (compound) topical Q1H PRN ondansetron ODT (ZOFRAN ODT) tablet 8 mg 8 mg oral Q12H oxyCODONE (immediate release) (ROXICODONE) tablet 5-15 mg 5-15 mg oral Q4H PRN pentamidine (PENTAM) IV 300 mg 300 mg intravenous Q4W posaconazole DR (NOXAFIL) tablet 300 mg 300 mg oral DAILY potassium chloride IV (central line) 40 mEq 40 mEq intravenous PRN Or potassium chloride IV (central line) 60 mEq 60 mEq intravenous PRN potassium chloride SR (KLOR-CON) tablet 40 mEq 40 mEq oral PRN potassium phosphate IV (CENTRAL LINE) 30 mmol 30 mmol intravenous PRN Or potassium phosphate IV (CENTRAL LINE) 40 mmol 40 mmol intravenous PRN prochlorperazine (COMPAZINE) injection 5-10 mg 5-10 mg intravenous Q6H PRN prochlorperazine (COMPAZINE) tablet 5-10 mg 5-10 mg oral Q6H PRN ramelteon (ROZEREM) tablet 8 mg 8 mg oral HS PRN saliva substitute (MOUTH KOTE) spray 1 spray 1 spray oral Q1H PRN senna-docusate (SENOKOT S) 8.6-50 mg 1-2 tablet 1-2 tablet oral Q12H PRN sodium chloride (OCEAN) 0.65 % nasal spray 2 spray 2 spray both nostrils PRN sodium chloride 0.9 % (NS) IV infusion 1,000 mL intravenous HS PRN sodium phosphate IV 30 mmol 30 mmol intravenous PRN sodium phosphate IV 40 mmol 40 mmol intravenous PRN tacrolimus capsule 0.5 mg 0.5 mg oral QPM tacrolimus capsule 1 mg 1 mg oral QAM ursodiol (ACTIGALL) tablet 500 mg 500 mg oral BID valACYclovir (VALTREX) tablet 500 mg 500 mg oral BID Allergies Allergies Allergen Reactions Sulfa (Sulfonamide Antibiotics) Hives Social History Social History Tobacco Use Smoking status: Former Smoker Packs/day: 1.50 Years: 28.00 Pack years: 42.00 Types: Cigarettes Last attempt to quit: 06/29/2004 Years since quittin.8 Smokeless tobacco: Never Used Substance Use Topics Alcohol use: Not Currently Comment: very occasionally Social History Patient does not qualify to have social determinant information on file (likely too young ). Social History Narrative Lives with niece in [facility] Family History: Family History Problem Relation Age of Onset Heart Attack Mother Melanoma Father Liver Disease Father Alcohol abuse Father Stroke Sister Dementia Sister Diabetes Sister Brain cancer Brother Alcohol abuse Brother Brain cancer Aunt Physical Exam: BP 129/65 (BP Location: Left upper arm, Patient Position: Lying on back) | Pulse 83 | Tem p 37.2 C (98.9 F) (Oral) | Resp 16 | Ht 1.591 m (5' 2.64") | Wt 74 kg (163 lb 2.3 oz) | SpO2 99% | BMI 29.23 kg/m | BSA 1.81 m Systolic (24hrs), Av , Min:115 , Max:133 Diastolic (24hrs), Av, Min:52, Max:67 Pulse Av.3 Min: 83 Max: 92 Temp Av.4 C (99.4 F) Min: 36.7 C (98.1 F) Max: 38.1 C (100.6 F) Resp Av.4 Min: 16 Max: 18 SpO2 Av.9 % Min: 92 % Max: 99 % General Appearance: comfortable, NAD HEENT: EOMI, clear oropharynx, MMM, bilateral ulcers behind upper molars Neck: supple, no neck masses noted Respiratory: clear to auscultation bilaterally, normal effort Cardiovascular: RRR, +s1, s2, no m/r Gastrointestinal: +BS, soft, NT/ND, non-bleeding external hemorrhoid Skin: Warm, well perfused, no rashes Extremities: no LE edema, W/WP Neurologic: speech wnl, moves all 4 ext spontaneously Psych: Mood, mentation wnl Lines/drains: Left chest tunneled line - c/d/i Data: Recent Labs 04/21/19 0022 04/21/19 1655 04/22/19 0011 04/27/19 0102 04/28/19 0000 04/29/19 0000 WBC 2.14* 1.65* 0.91* < > <0.10* <0.10* <0.10* RBC 3.56* 4.00 3.92* < > 2.94* 2.68* 2.59* HB 10.1* 11.3* 10.9* < > 8.1* 7.4* 7.2* HCT 31.6* 35.0* 34.5* < > 24.8* 22.6* 21.4* PLT 162 168 161 < > 10* 8* 8* NEUTROPERC 94.0* 99.1* 96.5* -- -- -- -- LYMPHPERC 0.9* 0.9* 1.8* -- -- -- -- MONOPERC 0.0* 0.0* 0.0* -- -- -- -- BASOPERC 0.9 0.0 0.0 -- -- -- -- EOSPERC 0.5* 0.0* 1.7 -- -- -- -- < > = values in this interval not displayed. Recent Labs 04/27/1910104/28/19 0000 04/29/19 0000 NA 142 140 138 K 3.2* 3.3* 3.3* CL 112* 111* 106 BICARB 22 24 28 BUN 5* 4* 6 CR 0.53* 0.46* 0.50* GLU 104* 102* 88 CA 7.5* 8.1* 8.0* Recent Labs 04/27/1910119 0000 04/29/19 0000 AST 9 9 10 ALT 11 12 14 AP 86 86 89 TBILI 0.4 0.4 0.6 TP 5.2* 5.2* 5.5* ALB 2.5* 2.5* 2.4* Lab Results Lab Test Name Results Date/Time APTT 29.2 04/15/19 FIBRINOGEN 444 04/15/19 No results found for: ESR No results found for: CRP Antibiotics: Cefepime - 04/17-04/20, 04-28-TBD Levofloxacin 04/20-04/28 Prophylaxis: Letermovir Posaconazole Pentamidine Valacyclovir Microbiology data: Blood cultures - 04/28 - 1 set - strep species (from Cath), 1 set GPC on gram stain (periph eral) Blood cultures - 04/17, - NGTD Stool viral/bacterial panel -04/25 - negative C diff - 04/25 - negative ID Pending Labs: Imaging: CXR 04/29: IMPRESSION: Clear lungs. Trace bilateral pleural effusions. Assessment and Plan: 53 y.o. 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 # Strep bacteremia w/ neutropenic fever - Suspect the GPC noted on gram stain will be the s dory strep growing from the port. Clinically, pt is doing well w/o hemodynamic instability. S uspect source to be from mucosal translocation, either through ulcers in mouth or from the G I tract. - Continue cefepime for strep and neutropenic fever - Ok to keep line in place, as long as pt has no hemodynamic instability/severe sepsis and is not persistently bacteremic. If these develop, will need to pull line - f/u repeat blood cultures - if these are positive, will need to consider pulling line and looking for source of endovascular infection w/ TTE, repeat upper extremity U/S # Diarrhea - infectious workup for this has been unrevealing. Suspect 2/2 chemo at this lazara e. If fevers persist without new microbiologic data though, would consider CT A/P w/ contras t for further evaluation. Also consider stool parasite panel as pt around numerous animals a t home Recommendations discussed with primary team. This patient was staffed with Dr. Alaniz, who agrees with the above assessment and plan unless otherwise documented. Please call Dr. Alaniz for any questions on this patient from 04/29-05/01. Thank you for the consult. We will follow along with you. Jordan Lee MD, 04/29/19 , 1:50 PM Infectious Diseases Fellow Pager: [phone] Associated attestation - Corbin, Eb Meadows MD - 04/29/2019 6:49 PM PDTI personally interv iewed the patient, performed the pertinent parts of the physical examination and personally formulated the plan with Dr Lee and I agree with his documentation and have documented any additions or exceptions. Patient with febrile neutroipenia and Strep viridans sepsis. Has mucositis in mouth and per ianal area and has responded well to cefepime. Will follow to ensure clears and WCC is still a week awayMini Serrano, PharmD - 04/28/2019 2:11 PM PDT 04/28/2019 2:11 PM Pharmacy Services: Tacrolimus Immunosuppression Therapy Note Current physician: Seferino Canchola Mid-level practitioner: Mecca Birmingham Diagnosis: Transplant type: Allo full intensity Transplant date: 04/22/19; Today is day +6 Study Protocol:yes -IRB 45870 expanded UCBT Subjective/Objective: Stephenie Camarillo is a 53 year old female with a history ofMDS-RO0adkptuzy for FluCyTB I expanded UCBT on Gamida Study (IRB 41219) Allergies: Allergies Allergen Reactions Sulfa (Sulfonamide Antibiotics) Hives Current Medication: Tacrolimus Dose and route of administration: 1 mg PO qAM and 0.5 mg PO qPM Number of doses received since last dose change: 11 doses Interacting medications/pertinent medication changes: letermovir/posaconazole at steady sta te Evidence of toxicity or adverse events: no Active GVHD: no Labs: CREATININE PLASMA (LAB) (mg/dL) Date Value 04/28/2019 0.46 (L) 04/27/2019 0.53 (L) 04/26/2019 0.52 (L) Immunosuppressant level: tacrolimus TACROLIMUS (FK 506) (ng/mL) Date Value 04/28/2019 7.1 Target drug level: 5-10 ng/mL Drug level drawn at appropriate time: yes; ~11 hr level Date (Day + ) Level Dose Comments 04/22/19 (0) 4.6 2 mg PO BID Decrease dose to 1 mg PO QAM & 0.5 mg PO QPM 04/26/19 (+4) 7.1 1 mg PO QAM & 0.5 mg PO QPM Continue current dose 04/28/19 (+6) 7.1 1 mg PO qAM & 0.5 mg PO qPM Continue current dose Assessment/Plan: - Current drug level is within range. - The patient s kidney function is stable and liver function is stable. - Recommend to continue current dose. - Next drug level is ordered for Thursday, 05/02 at 0900 as a trough just prior to AM dose. Oncology Pharmacy Services will continue to follow and make recommendations as drug levels are available or the patient s clinical status changes. Please page the Oncology Pharmacis t (#[phone]) or call central inpatient pharmacy ([phone]) with questions. Thank you for the consult, Minor Serrano PharmD iguelangel Lopez Pha rmD - 04/26/2019 6:03 PM PDT 04/26/2019 6:03 PM Pharmacy Services: Tacrolimus Immunosuppression Therapy Note Current physician: Jesika Mid-level practitioner: Roly Diagnosis: Transplant type: Allo full intensity Transplant date: 04/22/19; Today is day +4 Study Protocol: yes - IRB 61935 expanded UCBT Subjective/Objective: Stephenie Camarillo is a 53 year old female with a history of MDS-EB2 admitted for FluCyTBI expanded UCBT on Gamida Study (IRB 71060) Allergies: Allergies Allergen Reactions Sulfa (Sulfonamide Antibiotics) Hives Current Medication: Tacrolimus Dose and route of administration: 1 mg PO QAM & 0.5 mg PO QPM Number of doses received since last dose change: 7 Interacting medications/pertinent medication changes: posaconazole (not yet at steady state ) and letermovir Evidence of toxicity or adverse events: no Active GVHD: no Labs: CREATININE PLASMA (LAB) (mg/dL) Date Value 04/26/2019 0.52 (L) 04/25/2019 0.58 (L) 04/25/2019 0.44 (L) Immunosuppressant level: tacrolimus TACROLIMUS (FK 506) (ng/mL) Date Value 04/26/2019 7.1 Target drug level: 5-10 Drug level drawn at appropriate time: yes Date (Day + ) Level Dose Comments 04/22/19 (0) 4.6 2 mg PO BID Decrease dose to 1 mg PO QAM & 0.5 mg PO QPM 04/26/19 (+4) 7.1 1 mg PO QAM & 0.5 mg PO QPM Continue current dose Assessment/Plan: - Current drug level is within range. - The patient s kidney function is stable and liver function is stable. - Recommend to continue current dose. - Next drug level is ordered for at 0900 as a trough just prior to AM dose. Oncology Pharmacy Services will continue to follow and make recommendations as drug levels are available or the patient s clinical status changes. Please page the Oncology Pharmacis t (#[phone]) or call central inpatient pharmacy ([phone]) with questions. Miguelangel Lopez PharmD, [facility] Clinical Oncology Pharmacist Pager [phone] Enoc Maurice Pha rmD - 04/22/2019 1:34 PM PDT 04/22/2019 1:34 PM Pharmacy Services: Tacrolimus Immunosuppression Therapy Note Current physician: Aniya Banks Mid-level practitioner: denis Diagnosis: Transplant type: Allo full intensity Transplant date: 04/22/19; Today is day 0 Study Protocol: yes - IRB 71014 expanded UCBT Subjective/Objective: Stephenie Camarillo is a 53 year old female with a history of MDS-EB2 admitted for FluCyTBI expanded UCBT on Gamida Study (IRB 18434) Allergies: Allergies Allergen Reactions Sulfa (Sulfonamide Antibiotics) Hives Current Medication: Tacrolimus Dose and route of administration: 2 mg PO BID Number of doses received since last dose change: 6 Interacting medications/pertinent medication changes: posaconazole (starts today), letermov ir starts tomorrow Evidence of toxicity or adverse events: no Active GVHD: no Labs: CREATININE PLASMA (LAB) (mg/dL) Date Value 04/22/2019 0.43 (L) 04/21/2019 0.49 (L) 04/20/2019 0.52 (L) Immunosuppressant level: tacrolimus TACROLIMUS (FK 506) (ng/mL) Date Value 04/22/2019 4.6 (L) Target drug level: 5-10 Drug level drawn at appropriate time: yes Date (Day + ) Level Dose Comments 04/22/19 (0) 4.6 2 mg PO BID Decrease dose to 1 mg PO QAM & 0.5 mg PO QPM Assessment/Plan: - Current drug level is below range but appropriate. - The patient s kidney function is stable and liver function is stable. - Recommend to decrease dose to 1 mg PO QAM & 0.5 mg PO QPM. Posaconazole starts today and letermovir starts tomorrow. Both will significantly inhibit tacrolimus metabolism. - Next drug level is ordered for Thursday at 0900 as a trough just prior to AM dose. Oncology Pharmacy Services will continue to follow and make recommendations as drug levels are available or the patient s clinical status changes. Please page the Oncology Pharmacis t (#[phone]) or call central inpatient pharmacy ([phone]) with questions. Tamie AlasD, BCOP documented in this encounter Miscellaneous Notes Plan of Care - Madison Nolan RN - 05/18/2019 5:15 PM PSTPatient discharged in stable co ndition and without complaints. AVS and all DC instructions, including updated medication li st, reviewed. All personal belongings and medications were sent home with patient, having as sisted them with double-checking their room for any items left behind. Patient left unit via wheelchair to car where her caregiver will drive her [facility] andoff - Gricelda Johnson RN - 05/18/2019 5:48 AM PSTNursing Handoff Patient Daily Goal: To eat more and go home soon. (05/16/19 5821) Patient Specific Preferences: Imodium PRN diarrhea (05/14/19 0900) [facility] IP NURSE HANDOFF: [facility] hospital course events: Primary Diagnosis: MDS Transplant: Double Cord, Day +26 Chemo: Flu/Cy/TBI, Gamida trial PMH: Herpes Zoster, HTN, Platelet refractory - requires HLA matched Psych/Social: Stephenie is , and lives in [place] on her niece's property. Stephenie leigh shante to [place] earlier this year from [place] to be near family when she learned she was ill. Her main family is a brother in the [place] and her sister's daughter in [place]. Her sister has dementia and lives nearby in assisted living. Good friend, Susan, will be caregiver. Advance Care Planning: Stephenie wants her niece to be her medical decision maker. She has AD paperwork and is working on it. Research study: Active Hospital Events: 04/17: Non neutropenic fever. Blood cx and chest xray done. Cefepime started. 04/18: TBI started, 4-day course 04/20: cefepime dc'd, levaquin started 04/22 transplant 04/25: 1.5 L stool on day shift. cdiff negative. Gi panel sent; results pending. 04/28: first temp spike, started on cefepime 05/01: subsequent temp, blood culture x1 05/16: First day of engraftment. ANC 580 this morning. SAFETY Patient/Family Target: Stephenie will not fall Progress to Target: No Change As evidenced by: Falls and mobility: Ambulating in room independently. Using call light appropriately. Be dside commode PRN at [facility] for urgency, not needed this shift Mental status changes: Other: COMFORT/ANXIETY/BEHAVIOR Patient/Family Target: Stephenie will have pain & nausea controlled Progress to Target: Improving As evidenced by: Pain: Intermittent bilateral back of leg pain only when standing or walking. CK level nor mal. Declines need for meds at this time. States minimal relief with oxy and flexeril. Nausea: intermittent, but improved with scheduled Zofran & Compazine Bowel function: LBM 05/17, liquid/loose, responds to imodium HYGIENE/INFECTION Patient/Family Target: Stephenie will remain free of s/sx of infection. Progress to Target: No Change As evidenced by: CHG Bathing: Last shower 05/17, no CHG due to rash Central line: ZAHRAA Rios CDI. Dressing change due 05/22 Other: VS stable, afebrile. Runny nose - RVP 05/13 negative Rash- significantly improved but still reddened upper chest & posterior neck, continue to e ncourage use of scheduled creams NURSING ASSESSMENT & RECOMMENDATIONS FORWARD Nursing Assessment of Patient Stability Risk: Moderately stable Recommendations Forward: Orders to follow up on: - PRN Hydralazine for SBP >160 - Likely to DC Friday 05/18 - remove suture from skin biopsy site RUE on 05/18 - 1 More unit HLA platelets in BB, valid to 05/20. Perhaps should be given before DC, or luis shabazz plan for clinic use? Labs still due: Tacro level Q Thu/Thu before morning dose. VRE missed, need today Replacements needed: Mg infusing. Pssibly PLTs Anticipated or pending procedures: Symptom management: - Decreased appetite - pt likes shakes made with vanilla almond milk, vanilla carnation ins tant breakfast, and raspberry sorbet. - Sitz bath PRN, nifedipine and hydrocortisone creams sched Education needed: D/C teaching started with pt's caregiver Melly 05/16 Other: Barriers to discharge: Plan to DC today 05/18, will go to [facility] andoff - David Dorsey RN - 05/17/2019 6:43 PM PSTNursing Handoff Patient Daily Goal: To eat more and go home soon. (05/16/19 3128) [facility] IP NURSE HANDOFF: [facility] course events: Primary Diagnosis: MDS Transplant: Double Cord, Day +25 Chemo: Flu/Cy/TBI, Gamida trial PMH: Herpes Zoster, HTN, Platelet refractory - requires HLA matched Psych/Social: Stephenie is , and lives in [place] on her niece's property. Stephenie [place] to [place] earlier this year from [place] to be near family when she learned she was ill. Her [place] [facility] and her sister's daughter in [place]. Her sister has dementia and lives nearby in assisted living. Good friend, Susan, will be caregiver. Advance Care Planning: Stephenie wants her niece to be her medical decision maker. She has AD paperwork and is working on it. Research study: Active Hospital Events: 04/17: Non neutropenic fever. Blood cx and chest xray done. Cefepime started. 04/18: TBI started, 4-day course 04/20: cefepime dc'd, levaquin started 04/22 transplant 04/25: 1.5 L stool on day shift. cdiff negative. Gi panel sent; results pending. 04/28: first temp spike, started on cefepime 05/01: subsequent temp, blood culture x1 05/16: First day of engraftment. ANC 580 this morning. SAFETY Patient/Family Target: Stephenie will not fall Progress to Target: No Change As evidenced by: Falls and mobility: Ambulating in room independently. Using call light appropriately. Be dside commode PRN at [facility] for urgency. Mental status changes: Other: COMFORT/ANXIETY/BEHAVIOR Patient/Family Target: Stephenie will have pain & nausea controlled Progress to Target: Improving As evidenced by: Pain: Intermittent bilateral back of leg pain only when standing or walking. CK level nor mal. Declines need for meds at this time. States minimal relief with oxy and flexeril. Nausea: intermittent, but improved with scheduled Zofran & Compazine Bowel function: LBM 05/17, liquid/loose, responds to immodium HYGIENE/INFECTION Patient/Family Target: Stephenie will remain free of s/sx of infection. Progress to Target: No Change As evidenced by: CHG Bathing: Last shower 05/17, no CHG due to rash Central line: ZAHRAA Rios CDI. Dressing change due 05/22 Other: VS stable, afebrile. Runny nose - RVP 05/13 negative NURSING ASSESSMENT & RECOMMENDATIONS FORWARD Nursing Assessment of Patient Stability Risk: Moderately stable Recommendations Forward: Orders to follow up on: - PRN Hydralazine for SBP > 160 - Likely to DC Friday 05/18 - remove suture from skin biopsy site on 05/18 - 1 More unit HLA platelets in BB, perhaps should be given before DC? Labs still due: [place]ro level Q Thu/Thu before morning dose Replacements needed: - The blood bank had no HLA-matched platelets available 05/16, but three are on order. Once they arrive she will need a transfusion. Anticipated or pending procedures: Symptom management: - Decreased appetite - pt likes shakes made with vanilla almond milk, vanilla carnation ins tant breakfast, and raspberry sorbet. - Sitz bath PRN Education needed: D/C teaching started with pt's caregiver Melly 05/16 Other: Barriers to discharge: Plan to DC tomorrow andoff - Lacy Wilson RN - 05/17/2019 6:45 AM PSTNursing Handoff Patient Daily Goal: To eat more and go home soon. (05/16/19 4983) [facility] IP NURSE HANDOFF: [facility] events: Primary Diagnosis: MDS Transplant: Double Cord, Day +25 Chemo: Flu/Cy/TBI, Gamida trial PMH: Herpes Zoster, HTN, Platelet refractory - requires HLA matched Psych/Social: Stephenie is , and lives in [place] on her niece's property. Stephenie [place] to [place] earlier this year from [place] to be near family when she learned she was ill. Her main family is a brother in the [place] and her sister's daughter in [place]. Her sister has dementia and lives nearby in assisted living. Good friend, Susan, will be caregiver. Advance Care Planning: Stephenie wants her niece to be her medical decision maker. She has AD paperwork and is working on it. Research study: Active Hospital Events: 04/17: Non neutropenic fever. Blood cx and chest xray done. Cefepime started. 04/18: TBI started, 4-day course 04/20: cefepime dc'd, levaquin started 04/22 transplant 04/25: 1.5 L stool on day shift. cdiff negative. Gi panel sent; results pending. 04/28: first temp spike, started on cefepime 05/01: subsequent temp, blood culture x1 05/16: First day of engraftment. ANC 580 this morning. SAFETY Patient/Family Target: Stephenie will not fall Progress to Target: No Change As evidenced by: Falls and mobility: Ambulating in room independently. Using call light appropriately. Be dside commode PRN at [facility] for urgency. Mental status changes: Other: COMFORT/ANXIETY/BEHAVIOR Patient/Family Target: Stephenie will have pain & nausea controlled Progress to Target: Improving As evidenced by: Pain: Intermittent bilateral back of leg pain only when standing or walking. CK level nor mal. Declines need for meds at this time. States minimal relief with oxy and flexeril. Nausea: intermittent, but improved with scheduled Zofran & Compazine Bowel function: LBM 05/16, liquid/loose HYGIENE/INFECTION Patient/Family Target: Stephenie will remain free of s/sx of infection. Progress to Target: No Change As evidenced by: CHG Bathing: Last shower 05/16, no CHG due to rash Central line: ZAHRAA Rios CDI. Dressing change due 05/22 Other: VS stable, afebrile. Runny nose - RVP 05/13 negative NURSING ASSESSMENT & RECOMMENDATIONS FORWARD Nursing Assessment of Patient Stability Risk: Moderately stable Recommendations Forward: Orders to follow up on: - PRN Hydralazine for SBP > 160 -Needs a unit of PLTS but needs HLA matched, none available yet, will need as soon as they are available. - remove suture from skin biopsy site on 05/18 Labs still due: Tacro level Q Thu/Sun before morning dose Replacements needed: - The blood bank had no HLA-matched platelets available 05/16, but three are on order. Once they arrive she will need a transfusion. Anticipated or pending procedures: Symptom management: - Decreased appetite - pt likes shakes made with vanilla almond milk, vanilla carnation ins tant breakfast, and raspberry sorbet. - Sitz bath PRN Education needed: D/C teaching started with pt's caregiver Melly 05/16 Other: Barriers to discharge: The caregiver needs to arrive and receive education. Stephenie's oral i ntake is not great and may be a barrier to discharge. They will be staying at [facility] upon discharge. andoff - Prachi Dominguez RN - 05/16/2019 6:48 PM PSTNursing Handoff Patient Daily Goal: To eat more and go home soon. (05/16/19 1503) [facility] IP NURSE HANDOFF: [facility] events: Primary Diagnosis: MDS Transplant: Double Cord, Day +24 Chemo: Flu/Cy/TBI, Gamida trial PMH: Herpes Zoster, HTN, Platelet refractory - requires HLA matched Psych/Social: Stephenie is , and lives in [place] on her niece's property. Stephenie [place] to [place] earlier this year from [place] to be near family when she learned she was ill. [place] and her sister's daughter in [place]. Her sister has dementia and lives nearby in assisted living. Good friend, Susan, will be caregiver. Advance Care Planning: Stephenie wants her niece to be her medical decision maker. She has AD paperwork and is working on it. Research study: Active Hospital Events: 04/17: Non neutropenic fever. Blood cx and chest xray done. Cefepime started. 04/18: TBI started, 4-day course 04/20: cefepime dc'd, levaquin started 04/22 transplant 04/25: 1.5 L stool on day shift. cdiff negative. Gi panel sent; results pending. 04/28: first temp spike, started on cefepime 05/01: subsequent temp, blood culture x1 05/16: First day of engraftment. ANC 580 this morning. SAFETY Patient/Family Target: Stephenie will not fall Progress to Target: No Change As evidenced by: Falls and mobility: Ambulating in room independently. Using call light appropriately. Be dside commode PRN at [facility] for urgency. Mental status changes: Other: COMFORT/ANXIETY/BEHAVIOR Patient/Family Target: Stephenie will have pain & nausea controlled Progress to Target: Improving As evidenced by: Pain: Intermittent bilateral back of leg pain only when standing or walking. CK level nor mal. Declines need for meds at this time. States minimal relief with oxy and flexeril. Nausea: intermittent, but improved with scheduled Zofran & Compazine Bowel function: LBM 05/15. HYGIENE/INFECTION Patient/Family Target: Stephenie will remain free of s/sx of infection. Progress to Target: No Change As evidenced by: CHG Bathing: Last shower 05/16, no CHG due to rash Central line: ZAHRAA Rios CDI. Dressing change due 05/22 Other: VS stable, afebrile. Runny nose - RVP 05/13 negative NURSING ASSESSMENT & RECOMMENDATIONS FORWARD Nursing Assessment of Patient Stability Risk: Moderately stable Recommendations Forward: Orders to follow up on: - PRN Hydralazine for SBP > 160 -Three units HLA-matched platelets on order? - blood bank investigating this candice - remove suture from skin biopsy site on 05/18 Labs still due: [place]ro level Q Wed/Sun before morning dose Replacements needed: - The blood bank had no HLA-matched platelets available 05/16, but three are on order. Once they arrive she will need a transfusion. Anticipated or pending procedures: Symptom management: - Decreased appetite - pt likes shakes made with vanilla almond milk, vanilla carnation ins tant breakfast, and raspberry sorbet. - Sitz bath PRN Education needed: D/C teaching started with pt's caregiver Melly 05/16 Other: Barriers to discharge: The caregiver needs to arrive and receive education. Stephenie's oral i ntake is not great and may be a barrier to discharge. They will be staying at [facility] upon discharge. lan of Care - Marla Wells RD - 05/16/2019 10:24 AM PSTFormatting of this note might be different from the orig inal. Problem: Nutrition Interventions Intervention: Food and nutrient distribution type or amount Note: Pt continues to struggle with solid intake (typically eating breakfast) but excellent fluid intake including Ensure and Instant Breakfast. Nutrition Diagnosis: predicted inadequate oral intake r/t pretransplant regimen. 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/Cy followed by double cord (on gamida trial- randomized to SOC) on 04/22/19 Low bacteria diet: cereal with 3170 ml 5'2" 68.8 kg BMI: 27.6 Est needs: [id number] david (25-30 david/kg) 103-123 g pro (1.5-1.8 gpro/kg) andoff - Piyush Beckwith RN - 05/16/2019 6:50 AM PSTNursing Handoff Patient Daily Goal: Drink 2L PO fluids (05/14/19 0900) [facility] IP NURSE HANDOFF: [facility] events: Primary Diagnosis: MDS Transplant: Double Cord, Day +24 Chemo: Flu/Cy/TBI, Gamida trial PMH: Herpes Zoster, HTN, Platelet refractory - requires HLA matched Psych/Social: Stephenie is , and lives in [place] on her niece's property. Stephenie [place] to [place] earlier this year from [place] to be near family when she learned she was ill. Her main family is a brother in the [place] and her sister's daughter in [place]. Her sister has dementia and lives nearby in assisted living. Good friend, Susan, will be caregiver. Advance Care Planning: Stephenie wants her niece to be her medical decision maker. She has AD paperwork and is working on it. Research study: Active Hospital Events: 04/17: Non neutropenic fever. Blood cx and chest xray done. Cefepime started. 04/18: TBI started, 4-day course 04/20: cefepime dc'd, levaquin started 04/22 transplant 04/25: 1.5 L stool on day shift. cdiff negative. Gi panel sent; results pending. 04/28: first temp spike, started on cefepime 05/01: subsequent temp, blood culture x1 05/16: First day of engraftment. ANC 580 this morning. SAFETY Patient/Family Target: Stephenie will not fall Progress to Target: No Change As evidenced by: Falls and mobility: Ambulating in room independently. Using call light appropriately. Be dside commode PRN at [facility] for urgency. Mental status changes: Other: COMFORT/ANXIETY/BEHAVIOR Patient/Family Target: Stephenie will have pain & nausea controlled Progress to Target: No Change As evidenced by: Pain: Intermittent bilateral back of leg pain only when standing or walking. CK level nor mal. Declines need for meds at this time. States minimal relief with oxy and flexeril. Nausea: intermittent, but improved with scheduled Zofran & Compazine Bowel function: Loose to liquid BMs, decreasing in frequency, Imodium prn. HYGIENE/INFECTION Patient/Family Target: Stephenie will remain free of s/sx of infection. Progress to Target: No Change As evidenced by: CHG Bathing: Last shower 05/15, no CHG due to rash Central line: ZAHRAA Rios CDI. Dressing change due 05/22 Other: VS stable, afebrile. Runny nose - RVP 05/13 negative NURSING ASSESSMENT & RECOMMENDATIONS FORWARD Nursing Assessment of Patient Stability Risk: Moderately stable Recommendations Forward: Orders to follow up on: - PRN Hydralazine for SBP > 160 -Three units HLA-matched platelets on order - remove suture from skin biopsy site on 05/18 Labs still due: Tacro level Q Thu/Sun before morning dose Replacements needed: Mg 4 gm infusing. The blood bank had no HLA-matched platelets availabl e this morning, but three are on order. Once they arrive she will need a transfusion. Anticipated or pending procedures: Symptom management: - Imodium prn - Sitz bath PRN Education needed: Other: decreased appetite. Likes shakes made with: Vanilla almond milk, vanilla carnation i nstant breakfast, and raspberry sorbet. Stephenie'yu ANC is 580 today! Barriers to discharge: The caregiver needs to arrive and receive education. Stephenie's oral i ntake is not great and may be a barrier to discharge. They will be staying at [facility] upon discharge. andoff - Abdiel Zhou RN - 05/15/2019 8:11 AM PSTNursing Handoff Patient Daily Goal: Drink 2L PO fluids (05/14/19 0900) [place] IP NURSE HANDOFF: [facility] events: Primary Diagnosis: MDS Transplant: Double Cord, Day +23 Chemo: Flu/Cy/TBI, Gamida trial PMH: Herpes Zoster, HTN, Platelet refractory - requires HLA matched Psych/Social: Stephenie is , and lives in [place] on her niece's property. Stephenie [place] to [place] earlier this year from [place] to be near family when she learned she was ill. [place] and her sister's daughter in [place]. Her sister has dementia and lives nearby in assisted living. Good friend, Susan, will be caregiver. Advance Care Planning: Stephenie wants her niece to be her medical decision maker. She has AD paperwork and is working on it. Research study: Active Hospital Events: 04/17: Non neutropenic fever. Blood cx and chest xray done. Cefepime started. 04/18: TBI started, 4-day course 04/20: cefepime dc'd, levaquin started 04/22 transplant 04/25: 1.5 L stool on day shift. cdiff negative. Gi panel sent; results pending. 04/28: first temp spike, started on cefepime 05/01: subsequent temp, blood culture x1 SAFETY Patient/Family Target: Stephenie will not fall Progress to Target: No Change As evidenced by: Falls and mobility: Ambulating in room independently. Using call light appropriately. BS C PRN at [facility] for urgency. Mental status changes: Other: COMFORT/ANXIETY/BEHAVIOR Patient/Family Target: Stephenie will have pain & nausea controlled Progress to Target: No Change As evidenced by: Pain: Intermittent bilateral back of leg pain only when standing or walking. CK level nor mal. Declines need for meds at this time. States minimal relief with oxy and flexeril. Nausea: intermittent, but improved with ATC Zofran & Compazine Bowel function: Loose to liquid BMs, decreasing in frequency, Imodium prn. HYGIENE/INFECTION Patient/Family Target: Stephenie will remain free of s/sx of infection. Progress to Target: No Change As evidenced by: CHG Bathing: Last shower 05/15, no CHG due to rash Central line: ZAHRAA Rios CDI. Dressing change due 05/22 Other: VS stable, afebrile. Runny nose - RVP 05/13 negative NURSING ASSESSMENT & RECOMMENDATIONS FORWARD Nursing Assessment of Patient Stability Risk: Moderately stable Recommendations Forward: Orders to follow up on: - PRN Hydralazine for SBP > 160 - One unit HLA plts available in blood bank - remove suture from skin biopsy site on 05/18 Labs still due: Tacro level Q Wed/Sun before morning dose Replacements needed: Anticipated or pending procedures: Symptom management: - Imodium prn - Sitz bath PRN Education needed: Other: decreased appetite. Does like shakes made with: Vanilla almond milk, vanilla carnati on instant breakfast, and raspberry sorbet. Barriers to discharge: Count recovery. Regis - Luis Beckwith RN - 05/15/2019 6:50 AM PSTNursing Handoff Patient Daily Goal: Drink 2L PO fluids (05/14/19 0900) [facility] IP NURSE HANDOFF: [facility] events: Primary Diagnosis: MDS Transplant: Double Cord, Day +23 Chemo: Flu/Cy/TBI, Gamida trial PMH: Herpes Zoster, HTN, Platelet refractory - requires HLA matched Psych/Social: Stephenie is , and lives in [place] on her niece's property. Stephenie [place] to [place] earlier this year from [place] to be near family when she learned she was ill. Her main family is a brother in [place] and her sister's daughter in [place]. Her sister has dementia and lives nearby in assisted living. Good friend, Susan, will be caregiver. Advance Care Planning: Stephenie wants her niece to be her medical decision maker. She has AD paperwork and is working on it. Research study: Active Hospital Events: 04/17: Non neutropenic fever. Blood cx and chest xray done. Cefepime started. 04/18: TBI started, 4-day course 04/20: cefepime dc'd, levaquin started 04/22 transplant 04/25: 1.5 L stool on day shift. cdiff negative. Gi panel sent; results pending. 04/28: first temp spike, started on cefepime 05/01: subsequent temp, blood culture x1 SAFETY Patient/Family Target: Stephenie will not fall Progress to Target: No Change As evidenced by: Falls and mobility: Ambulating in room independently. Using call light appropriately. BS C PRN at noc for urgency. Mental status changes: Other: COMFORT/ANXIETY/BEHAVIOR Patient/Family Target: Stephenie will have pain & nausea controlled Progress to Target: No Change As evidenced by: Pain: Intermittent bilateral back of leg pain only when standing or walking. CK level nor mal. Declines need for meds at this time. States minimal relief with oxy and flexeril. Nausea: intermittent, but improved with ATC Zofran & Compazine Bowel function: Loose to liquid BMs, decreasing in frequency, Imodium prn. HYGIENE/INFECTION Patient/Family Target: Stephenie will remain free of s/sx of infection. Progress to Target: No Change As evidenced by: CHG Bathing: Last shower 05/14, no CHG due to rash Central line: ZAHRAA iRos CDI. Dressing change due 05/15 Other: VS stable, afebrile. Runny nose - RVP 05/13 negative NURSING ASSESSMENT & RECOMMENDATIONS FORWARD Nursing Assessment of Patient Stability Risk: Moderately stable Recommendations Forward: Orders to follow up on: - PRN Hydralazine for SBP > 160 - One unit HLA plts available in blood bank - remove suture from skin biopsy site on 05/18 Labs still due: Tacro level Q Thu/Sun before morning dose Replacements needed: Platelets transfused. PRBCs transfusing, KCl 40 meq given. Anticipated or pending procedures: Dressing change due today. Symptom management: - Imodium prn - Sitz bath PRN Education needed: Other: decreased appetite. Does like shakes made with: Vanilla almond milk, vanilla carnati on instant breakfast, and raspberry sorbet. Barriers to discharge: Count recovery. andoff - Mar Raymundo RN - 05/14/2019 4:51 PM PSTNursing Handoff Patient Daily Goal: Drink 2L PO fluids (05/14/19 0900) [place] IP NURSE HANDOFF: [facility] events: Primary Diagnosis: MDS Transplant: Double Cord, Day +22 Chemo: Flu/Cy/TBI, Gamida trial PMH: Herpes Zoster, HTN, Platelet refractory - requires HLA matched Psych/Social: Stephenie is , and lives in [place] on her niece's property. Stephenie [place] to [place] earlier this year from [place] to be near family when she learned she was ill. [place] and her sister's daughter in [place]. Her sister has dementia and lives nearby in assisted living. Good friend, Susan, will be caregiver. Advance Care Planning: Stephenie wants her niece to be her medical decision maker. She has AD paperwork and is working on it. Research study: Active Hospital Events: 04/17: Non neutropenic fever. Blood cx and chest xray done. Cefepime started. 04/18: TBI started, 4-day course 04/20: cefepime dc'd, levaquin started 04/22 transplant 04/25: 1.5 L stool on day shift. cdiff negative. Gi panel sent; results pending. 04/28: first temp spike, started on cefepime 05/01: subsequent temp, blood culture x1 SAFETY Patient/Family Target: Stephenie will not fall Progress to Target: No Change As evidenced by: Falls and mobility: Ambulating in room independently. Using call light appropriately. BS C PRN at [facility] for urgency Mental status changes: Other: COMFORT/ANXIETY/BEHAVIOR Patient/Family Target: Stephenie will have pain & nausea controlled Progress to Target: Improving As evidenced by: Pain: Intermittent bilateral back of leg pain only when standing or walking. CK level nor mal. Declines need for meds at this time. States minimal relief with oxy and flexeril. Nausea: intermittent, but improved with ATC Zofran & Compazine Bowel function: Loose BMs - improving. PRN Imodium. HYGIENE/INFECTION Patient/Family Target: Stephenie will remain free of s/sx of infection. Progress to Target: No Change As evidenced by: CHG Bathing: Last shower 05/14, no CHG due to rash Central line: ZAHRAA Rios CDI. Dressing change due 05/15 Other: VS stable, afebrile. Runny nose - RVP 05/13 negative NURSING ASSESSMENT & RECOMMENDATIONS FORWARD Nursing Assessment of Patient Stability Risk: Moderately stable Recommendations Forward: Orders to follow up on: - PRN Hydralazine for SBP > 160 - 2 avail HLA plts in blood bank - remove suture from skin biopsy site on 05/18 Labs still due: Tacro level Q Thu/Sun before morning dose Replacements needed: Anticipated or pending procedures: Tapering PO steroids (engraftment syndrome) Symptom management: - Imodium prn - Sitz bath PRN Education needed: Other: decreased appetite. Does like shakes made with: Vanilla almond milk, vanilla carnati on instant breakfast, and raspberry sorbet. Barriers to discharge: Count recovery. andPaul Boston RN - 05/14/2019 6:50 AM PSTNursing Handoff Patient Daily Goal: to see what's causing this pain in my legs (05/12/19 0800) [facility] IP NURSE HANDOFF: [facility] events: Primary Diagnosis: MDS Transplant: Double Cord, Day +22 Chemo: FluCyTBI, Gamida trial PMH: Herpes Zoster Psych/Social: Stephenie is , and lives in [place] on her niece's property. Stephenie m shante to [place] earlier this year from [place] to be near family when she learned she was ill. Her main family is a brother in [place] and her sister's daughter in [place]. Her sister has dementia and lives nearby in assisted living. Good friend, Susan, will be caregiver. Advance Care Planning: Stephenie wants her niece to be her medical decision maker. She has AD paperwork and is working on it. Research study: Active Hospital Events: 04/17: Non neutropenic fever. Blood cx and chest xray done. Cefepime started. 04/18: TBI started, 4-day course 04/20: cefepime dc'd, levaquin started 04/22 transplant 04/25: 1.5 L stool on day shift. cdiff negative. Gi panel sent; results pending. 04/28: first temp spike, started on cefepime 05/01: subsequent temp, blood culture x1 SAFETY Patient/Family Target: Stephenie will call for assist OOB as needed Progress to Target: No Change As evidenced by: Falls and mobility: Ambulating in room independently. Using call light appropriately. COMFORT/ANXIETY/BEHAVIOR Patient/Family Target: Stephenie will report her pain level as being controlled (<4/10) Progress to Target: No Change As evidenced by: Pain: bilateral back of leg pain only when standing or walking. CK level normal. Decline s need for meds at this time. States minimal relief with oxy and flexeril tried yesterday. M assage 05/13 MCARTHUR early this AM, tylenol given with good effect. Bowel function: Loose BMs - improving. Prn imodium. HYGIENE/INFECTION Patient/Family Target: Stephenie will remain free of s/sx of infection. Progress to Target: No Change As evidenced by: Bathing: shower 05/13 Central line: ZAHRAA Rios CDI. Dressing change due 05/15 VS stable, afebrile. Runny nose - RVP 05/13 negative NURSING ASSESSMENT & RECOMMENDATIONS FORWARD Nursing Assessment of Patient Stability Risk: Moderately stable Recommendations Forward: Orders to follow up on: - PRN Hydralazine for SBP > 160 - 3 avail plts in blood bank Labs still due: Replacements needed: Platelets transfused. Sodium phos 30 mmol infusing. Anticipated or pending procedures: Symptom management: - flexeril available q8 - imodium prn Education needed: Nutrition: decreased appetite. Does like shakes made with: Vanilla almond milk, vanilla [place] instant breakfast, and raspberry sorbet. Supplies in kitchen 05/12 (enough for 1 more shake) Barriers to discharge: Count recovery. andoff - Rylee Carolina RN - 05/13/2019 5:51 PM PSTNursing Handoff Patient Daily Goal: to see what's causing this pain in my legs (05/12/19 0800) Patient Specific Preferences: "bowel meds" (05/09/19 1214) [facility] IP NURSE HANDOFF: [facility] events: Primary Diagnosis: MDS Transplant: Double Cord, Day +21 Chemo: FluCyTBI, Gamida trial PMH: Herpes Zoster Psych/Social: Stephenie is , and lives in [place] on her niece's property. Stephenie [place] sh[place] to [place] earlier this year from [place] to be near family when she learned she was ill. Her main family is a brother in the [place] and her sister's daughter in [place]. Her sister has dementia and lives nearby in assisted living. Good friend, Susan, will be caregiver. Advance Care Planning: Stephenie wants her niece to be her medical decision maker. She has AD paperwork and is working on it. Research study: Active Hospital Events: 04/17: Non neutropenic fever. Blood cx and chest xray done. Cefepime started. 04/18: TBI started, 4-da course 04/20: cefepime dc'd, levaquin started 04/22 transplant 10/28: 1.5 L stool on day shift. cdiff negative. Gi panel sent; results pending. 04/28: first temp spike, started on cefepime 05/01: subsequent temp, blood culture x1 SAFETY Patient/Family Target: Stephenie will call for assist OOB as needed Progress to Target: No Change As evidenced by: Falls and mobility: Ambulating in room independently. Using call light appropriately COMFORT/ANXIETY/BEHAVIOR Patient/Family Target: Stephenie will report her pain level as being controlled (<4/10) Progress to Target: Improving As evidenced by: Pain: bilateral back of leg pain only when standing or walking. CK level normal. Decline s need for meds at this time. States minimal relief with oxy and flexeril tried yesterday. M assage 05/13 MCARTHUR early this AM, tylenol given with good effect. Bowel function: Loose BMs - improving. Prn imodium HYGIENE/INFECTION Patient/Family Target: Stephenie will remain free of s/sx of infection. Progress to Target: No Change As evidenced by: Bathing: shower 05/12 Central line: ZAHRAA humphrey changed 05/08. Due 05/15 NURSING ASSESSMENT & RECOMMENDATIONS FORWARD Nursing Assessment of Patient Stability Risk: Moderately stable Recommendations Forward: Orders to follow up on: - PRN Hydralazine for SBP > 160 - 3 avail plts in blood bank -RVP pending for runny nose Labs still due: Replacements needed: KCl infusing, mag infusing Anticipated or pending procedures: Symptom management: - flexeril available q8 - imodium prn Education needed: Nutrition: decreased appetite. Does like shakes made with: Vanilla almond milk, vanilla [place] instant breakfast, and raspberry sorbet. Supplies in kitchen 05/12 (enough for 1 more shake) Barriers to discharge: Count recovery. andleisa - Ilda Chavez RN - 05/13/2019 12:34 AM PSTNursing Handoff Patient Daily Goal: to see what's causing this pain in my legs (05/12/19 0800) Patient Specific Preferences: "bowel meds" (05/09/19 1214) [facility] IP NURSE HANDOFF: [facility] events: Primary Diagnosis: MDS Transplant: Double Cord, Day +21 Chemo: FluCyTBI, Gamida trial PMH: Herpes Zoster Psych/Social: Stephenie is , and lives in [place] on her niece's property. Stephenie [place] sh[place] to [place] earlier this year from [place] to be near family when she learned she was ill. [place] [facility] and her sister's daughter in [place]. Her sister has dementia and lives nearby in assisted living. Good friend, Susan, will be caregiver. Advance Care Planning: Stephenie wants her niece to be her medical decision maker. She has AD paperwork and is working on it. Research study: Active Hospital Events: 04/17: Non neutropenic fever. Blood cx and chest xray done. Cefepime started. 04/18: TBI started, 4-da course 04/20: cefepime dc'd, levaquin started 04/22 transplant 04/25: 1.5 L stool on day shift. cdiff negative. Gi panel sent; results pending. 04/28: first temp spike, started on cefepime 05/01: subsequent temp, blood culture x1 SAFETY Patient/Family Target: Stephenie will call for assist OOB as needed Progress to Target: No Change As evidenced by: Falls and mobility: Ambulating in room independently. Using call light appropriately COMFORT/ANXIETY/BEHAVIOR Patient/Family Target: Stephenie will report her pain level as being controlled (<4/10) Progress to Target: Improving As evidenced by: Pain: bilateral back of leg pain only when standing or walking. Team in to discuss with p t today. CK level normal. Declines need for meds at this time. States minimal relief with ox y and flexeril tried yesterday. MCARTHUR early this AM, tylenol given with good effect. Bowel function: Loose BMs - improving. HYGIENE/INFECTION Patient/Family Target: Stephenie will remain free of s/sx of infection. Progress to Target: No Change As evidenced by: Bathing: shower 05/12 Central line: ZAHRAA humphrey changed 05/08. Due 05/15 NURSING ASSESSMENT & RECOMMENDATIONS FORWARD Nursing Assessment of Patient Stability Risk: Moderately stable Recommendations Forward: Orders to follow up on: - PRN Hydralazine for SBP > 160 - order plts for weekend? Labs still due: Replacements needed: KCl infusing, NaPhos infusing Anticipated or pending procedures: Symptom management: - flexeril available q8 - imodium prn Education needed: Nutrition: decreased appetite. Does like shakes made with: Vanilla almond milk, vanilla car [place] instant breakfast, and raspberry sorbet. Supplies in kitchen 05/12 (enough for 1 more shake) Barriers to discharge: Count recovery. andoff - Rabia Ji RN - 05/12/2019 5:51 PM PSTNursing Handoff Patient Daily Goal: to see what's causing this pain in my legs (05/12/19 0800) Patient Specific Preferences: "bowel meds" (05/09/19 1214) [facility] IP NURSE HANDOFF: [facility]: Primary Diagnosis: MDS Transplant: Double Cord, Day +20 Chemo: FluCyTBI, Gamida trial PMH: Herpes Zoster Psych/Social: Stephenie is , and lives in [place] on her niece's property. Stephenie le[place] sh[place] to [place] earlier this year from [place] to be near family when she learned she was ill. Her main family is a brother in the [place] and her sister's daughter in [place]. Her sister has dementia and lives nearby in assisted living. Good friend, Susan, will be caregiver. Advance Care Planning: Stephenie wants her niece to be her medical decision maker. She has AD paperwork and is working on it. Research study: Active Hospital Events: 04/17: Non neutropenic fever. Blood cx and chest xray done. Cefepime started. 04/18: TBI started, 4-da course 04/20: cefepime dc'd, levaquin started 04/22 transplant 04/25: 1.5 L stool on day shift. cdiff negative. Gi panel sent; results pending. 04/28: first temp spike, started on cefepime 05/01: subsequent temp, blood culture x1 SAFETY Patient/Family Target: Stephenie will call for assist OOB as needed Progress to Target: No Change As evidenced by: Falls and mobility: Ambulating in room independently. Using call light appropriately COMFORT/ANXIETY/BEHAVIOR Patient/Family Target: Stephenie will report her pain level as being controlled (<4/10) Progress to Target: Improving As evidenced by: Pain: bilateral back of leg pain only when standing or walking. Team in to discuss with p t today. CK level sent. Declines need for meds at this time. States minimal relief with oxy and flexeril tried yesterday. Bowel function: Loose BMs - improving. Imodium prn given x1 day shift 05/12. HYGIENE/INFECTION Patient/Family Target: Stephenie will remain free of s/sx of infection. Progress to Target: No Change As evidenced by: Bathing: shower 05/12 Central line: ZAHRAA Rios drsg changed 05/08. Due 05/15 NURSING ASSESSMENT & RECOMMENDATIONS FORWARD Nursing Assessment of Patient Stability Risk: Moderately stable Recommendations Forward: Orders to follow up on: - If needs plts, [employer] is delivering this AM to blood bank. Call blood bank in order to release them. Received 1 unit platelets day shift 05/12 - PRN Hydralazine for SBP > 160 Labs still due: Replacements needed: Anticipated or pending procedures: Symptom management: - flexeril available q8, last given this AM @0600 - imodium prn, given X 1 on 05/12 Education needed: Nutrition: decreased appetite. Does like shakes made with: Vanilla almond milk, vanilla car [place] instant breakfast, and raspberry sorbet. Supplies in kitchen 05/12 (enough for 2 more shakes) Barriers to discharge: Count recovery. 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 Stephenie [place] to [place] earlier this year from [place] to be near family when she learned she was ill. Her main family is a brother in [place] and her sister's daughter in [place]. Her sister has dementia and lives nearby in assisted living. Good friend, Susan, will be caregiver. Advance Care Planning: Stephenie wants her niece to be her medical decision maker. She has AD paperwork and is working on it. Research study: Active Hospital Events: 04/17: Non neutropenic fever. Blood cx and chest xray done. Cefepime started. 04/18: TBI started, 4-da course 04/20: cefepime dc'd, levaquin started 04/22 transplant 04/25: 1.5 L stool on day shift. cdiff negative. Gi panel sent; results pending. 04/28: first temp spike, started on cefepime 05/01: subsequent temp, blood culture x1 SAFETY Patient/Family Target: Stephenie will remain safe and free from falls/injury. Progress to Target: No Change As evidenced by: Falls and mobility: Ambulating in room independently. Mental status changes: A&O x4. COMFORT/ANXIETY/BEHAVIOR Patient/Family Target: Stephenie will report her pain level as being controlled (<2/10) Progress to Target: No Change As evidenced by: Pain: bilateral back of leg pain, pt said felt like cramping/sharp. No redness, swelling or warmth noted. Oxycodone not effective, tried flexeril instead overnight and again this AM with some relief. Team aware of this pain Nausea: denies Bowel function: Loose BMs - improving. Imodium prn given x2 day shift 05/11. None overnight Sleep: trying to sleep btwn care overnight Psych: Other: HYGIENE/INFECTION Patient/Family Target: Stephenie will remain free of s/sx of infection. Progress to Target: No Change As evidenced by: Skin: Rash improving Bathing issues: shower 05/11 Central line issues: ZAHRAA humphrey changed 05/08 d/t peeling up in one corner. NURSING ASSESSMENT & RECOMMENDATIONS FORWARD Nursing Assessment of Patient Stability Risk: Moderately stable Recommendations Forward: Orders to follow up on: - needs plts, [employer] is delivering this AM to blood bank. Call blood bank in order to re lease them. - PRN Hydralazine for SBP > 160 - need to order more HLA matched plts? Labs still due: Replacements needed: Still needs plts. Mg infusing, Klor-con sched @0900 Anticipated or pending procedures: Symptom management: - flexeril available q8, last given this AM @0600 - imodium prn Education needed: Other: Barriers to discharge: Count recovery. andoff - Tawana Grace RN - 05/11/2019 6:34 PM PSTNursing Handoff Patient Daily Goal: get rest (05/09/19 2030) Patient Specific Preferences: "bowel meds" (05/09/19 1214) [facility] IP NURSE HANDOFF: [facility] events: Primary Diagnosis: MDS Transplant: Double Cord, Day + Chemo: FluCyTBI, Gamida trial PMH: Herpes Zoster Psych/Social: Stephenie is , and lives in [place] on her niece's property. Stephenie [place] to [place] earlier this year from [place] to be near family when she learned she was ill. Her main family is a brother in the [place] and her sister's daughter in [place]. Her sister has dementia and lives nearby in assisted living. Good friend, Susan, will be caregiver. Advance Care Planning: Stephenie wants her niece to be her medical decision maker. She has AD paperwork and is working on it. Research study: Active Hospital Events: 04/17: Non neutropenic fever. Blood cx and chest xray done. Cefepime started. 04/18: TBI started, 4-da course 04/20: cefepime dc'd, levaquin started 04/22 transplant 04/25: 1.5 L stool on day shift. cdiff negative. Gi panel sent; results pending. 04/28: first temp spike, started on cefepime 05/01: subsequent temp, blood culture x1 SAFETY Patient/Family Target: Stephenie will remain safe and free from falls/injury. Progress to Target: No Change As evidenced by: Falls and mobility: Ambulating in room independently. Mental status changes: A&O x4. COMFORT/ANXIETY/BEHAVIOR Patient/Family Target: Stephenie will report her pain level as being controlled (<2/10) Progress to Target: No Change As evidenced by: Pain: MCARTHUR this AM, and bilateral back of leg pain, pt said felt like cramping/sharp. No re dness, swelling or warmth noted. Required 5mg oxycodone @ 1800, f/u on effectiveness. Team a ford of this pain Nausea: denies Bowel function: Loose BMs - improving. Imodium prn given x2 today Sleep: trying to sleep btwn care overnight Psych: Other: HYGIENE/INFECTION Patient/Family Target: Stephenie will remain free of s/sx of infection. Progress to Target: No Change As evidenced by: Skin: Rash improving Bathing issues: shower 05/11 Central line issues: ZAHRAA Rios drsg changed 05/08 d/t peeling up in one corner. NURSING ASSESSMENT & RECOMMENDATIONS FORWARD Nursing Assessment of Patient Stability Risk: Moderately stable Recommendations Forward: Orders to follow up on: - PRN Hydralazine for SBP > 160 - blood bank says more HLA matched platelets arriving this evening Labs still due: Replacements needed: Anticipated or pending procedures: Symptom management: - 5mg oxycodone given @ 1800 for bilateral leg pain - imodium prn Education needed: Other: Barriers to discharge: Count recovery. lan of Care - Marla Wells RD - 05/11/2019 11:19 AM PST Problem: Nutrition Interventions Intervention: Food and nutrient distribution type or amount Note: Appetite remains poor but starting to take PO in small amounts. Continues with adequate PO fluids, including supplements Nutrition Diagnosis: predicted inadequate oral intake r/t pretransplant regimen. Goal of Nutrition Care: promote adequate oral intake Continue with low bacteria diet Encourage PO as tolerated Treat symptoms PRN Following Marla Wells RD, GREASE RENDERER, LD Pager [phone] 53 year old female with MDS admit for Flu/TBI/Cy followed by double cord (on gamida trial - randomized to SOC) on 04/22/19 Low bacteria diet: 25-50% with 2850 ml 5'2" 68.8 kg BMI: 27.6 Est needs: [id number] david (25-30 david/kg) 103-123 g pro (1.5-1.8 gpro/kg)Electronically jennifer d by Marla Wells RD at 05/11/2019 11:20 AM PSTHandoff - Camilla Chavez RN - 05/11/2019 2:02 AM PSTNursing Handoff Patient Daily Goal: get rest (05/09/19 2030) Patient Specific Preferences: "bowel meds" (05/09/19 1214) [facility] IP NURSE HANDOFF: [facility] events: Primary Diagnosis: MDS Transplant: Double Cord, Day + Chemo: FluCyTBI, Gamida trial PMH: Herpes Zoster Psych/Social: Stephenie is , and lives in [place] on her niece's property. Stephenie m shante to [place] earlier this year from [place] to be near family when she learned she was ill. Her main family is a [place] and her sister's daughter in [place]. Her sister has dementia and lives nearby in assisted living. Good friend, Susan, will be caregiver. Advance Care Planning: Stephenie wants her niece to be her medical decision maker. She has AD paperwork and is working on it. Research study: Active Hospital Events: 04/17: Non neutropenic fever. Blood cx and chest xray done. Cefepime started. 04/18: TBI started, 4-da course 04/20: cefepime dc'd, levaquin started 04/22 transplant 04/25: 1.5 L stool on day shift. cdiff negative. Gi panel sent; results pending. 04/28: first temp spike, started on cefepime 05/01: subsequent temp, blood culture x1 SAFETY Patient/Family Target: Stephenie will remain safe and free from falls/injury. Progress to Target: No Change As evidenced by: Falls and mobility: Ambulating in room independently. Mental status changes: A&O x4. COMFORT/ANXIETY/BEHAVIOR Patient/Family Target: Stephenie will report her pain level as being controlled (<2/10) Progress to Target: No Change As evidenced by: Pain: MCARTHUR this AM, and bilateral back of leg pain, pt said felt like cramping/sharp. No re dness, swelling or warmth noted. Continue to monitor. Tylenol effective. Hemorrhoid pain wit h movement and BMs, PRN oxy effective - none overnight; using creams in room Nausea: denies Bowel function: Loose BMs - improving. Imodium prn Sleep: trying to sleep btwn care overnight Psych: Other: HYGIENE/INFECTION Patient/Family Target: Stephenie will remain free of s/sx of infection. Progress to Target: No Change As evidenced by: Skin: Itchy rash. Atarax PRN effective Bathing issues: shower & HCG 05/10 Central line issues: ZAHRAA Rios drsg changed 05/08 d/t peeling up in one corner. NURSING ASSESSMENT & RECOMMENDATIONS FORWARD Nursing Assessment of Patient Stability Risk: Moderately stable Recommendations Forward: Orders to follow up on: PRN Hydralazine for SBP > 160 Labs still due: Replacements needed: Plts complete. HLA Plts- 1 unit coming to blood bank today 05/11 Anticipated or pending procedures: Symptom management: Education needed: Other: Barriers to discharge: Count recovery. andoff - Tawana Grace RN - 05/10/2019 6:21 PM PSTNursing Handoff Patient Daily Goal: get rest (05/09/192029) Patient Specific Preferences: "bowel meds" (05/09/19 1214) [facility] IP NURSE HANDOFF: [facility] events: Primary Diagnosis: MDS Transplant: Double Cord, Day +18 Chemo: FluCyTBI, Gamida trial PMH: Herpes Zoster Psych/Social: Stephenie is , and lives in [place] on her niece's property. Stephenie [place] to [place] earlier this year from [place] to be near family when she learned she was ill. Her main family is a [place] and her sister's daughter in [place]. Her sister has dementia and lives nearby in assisted living. Good friend, Susan, will be caregiver. Advance Care Planning: Stephenie wants her niece to be her medical decision maker. She has AD paperwork and is working on it. Research study: Active Hospital Events: 04/17: Non neutropenic fever. Blood cx and chest xray done. Cefepime started. 04/18: TBI started, 4-da course 04/20: cefepime dc'd, levaquin started 04/22 transplant 04/25: 1.5 L stool on day shift. cdiff negative. Gi panel sent; results pending. 04/28: first temp spike, started on cefepime 05/01: subsequent temp, blood culture x1 SAFETY Patient/Family Target: Stephenie will remain safe and free from falls/injury. Progress to Target: No Change As evidenced by: Falls and mobility: Ambulating in room independently. Mental status changes: A&O x4. COMFORT/ANXIETY/BEHAVIOR Patient/Family Target: Stephenie will report her pain level as being controlled (<2/10) Progress to Target: No Change As evidenced by: Pain: denies at this time. Hemorrhoid pain with movement and BMs, PRN oxy effective; usin g creams in room Nausea: denies Bowel function: Loose BMs - improving. Imodium prn Sleep: trying to sleep btwn care overnight Psych: Other: HYGIENE/INFECTION Patient/Family Target: Stephenie will remain free of s/sx of infection. Progress to Target: No Change As evidenced by: Skin: Itchy rash. Atarax PRN effective Bathing issues: shower & HCG 05/10 Central line issues: ZAHRAA Rios drsg changed 05/08 d/t peeling up in one corner. NURSING ASSESSMENT & RECOMMENDATIONS FORWARD Nursing Assessment of Patient Stability Risk: Moderately stable Recommendations Forward: Orders to follow up on: PRN Hydralazine for SBP > 160 Labs still due: Replacements needed: HLA Plts- 1 unit available in blood bank, will wait to see what kind o f bump she gets tonight from today's bag and order more in the am Anticipated or pending procedures: Symptom management: Education needed: Other: Barriers to discharge: Count recovery. andoff - Yohana, Osmar lanza RN - 05/09/2019 7:03 PM PSTNursing Handoff Patient Daily Goal: increase PO intake (05/09/19 1214) Patient Specific Preferences: "bowel meds" (05/09/19 1214) [facility] IP NURSE HANDOFF: [facility] events: Primary Diagnosis: MDS Transplant: Double Cord, Day +18 Chemo: FluCyTBI, Gamida trial PMH: Herpes Zoster Psych/Social: Stephenie is , and lives in [place] on her niece's property. Stephenie [place] to [place] earlier this year [place] to be near family when she learned she was ill. [place] and her sister's daughter in [place]. Her sister has dementia and lives nearby in assisted living. Good friend, Susan, will be caregiver. Advance Care Planning: Stephenie wants her niece to be her medical decision maker. She has AD paperwork and is working on it. Research study: Active Hospital Events: 04/17: Non neutropenic fever. Blood cx and chest xray done. Cefepime started. 04/18: TBI started, 4-da course 04/20: cefepime dc'd, levaquin started 04/22 transplant 04/25: 1.5 L stool on day shift. cdiff negative. Gi panel sent; results pending. 04/28: first temp spike, started on cefepime 05/01: subsequent temp, blood culture x1 SAFETY Patient/Family Target: Stephenie will remain safe and free from falls/injury. Progress to Target: No Change As evidenced by: Falls and mobility: Ambulating in room independently. Mental status changes: A&O x4. COMFORT/ANXIETY/BEHAVIOR Patient/Family Target: Stephenie will report her pain level as being controlled (<2/10) Progress to Target: No Change As evidenced by: Pain: denies at this time. Hemorrhoid pain with movement and BMs, PRN oxy effective; usin g creams in room Nausea: denies Bowel function: Loose BMs - improving. Imodium last 1999 Sleep: trying to sleep btwn care overnight Psych: Other: HYGIENE/INFECTION Patient/Family Target: Stephenie will remain free of s/sx of infection. Progress to Target: No Change As evidenced by: Skin: Itchy rash. Atarax PRN effective Bathing issues: shower 05/09 Central line issues: ZAHRAA humphrey changed 05/08 d/t peeling up in one corner. NURSING ASSESSMENT & RECOMMENDATIONS FORWARD Nursing Assessment of Patient Stability Risk: Moderately unstable Recommendations Forward: Orders to follow up on: PRN Hydralazine for SBP > 160 Labs still due: Replacements needed: HLA Plts- still waiting for 2 units to arrive Anticipated or pending procedures: Symptom management: Education needed: Other: Barriers to discharge: Count recovery. andoff - Tatianna Dempsey RN - 05/09/2019 2:40 PM PSTNursing Handoff Patient Daily Goal: increase PO intake (05/09/19 1214) Patient Specific Preferences: "bowel meds" (05/09/19 1214) [facility] IP NURSE HANDOFF: [facility] events: Primary Diagnosis: MDS Transplant: Double Cord, Day +17 Chemo: FluCyTBI, Gamida trial PMH: Herpes Zoster Psych/Social: Stephenie is , and lives in [place] on her niece's property. Stephen[place] to [place] earlier this year from [place] to be near family when she learned she was ill. Her main family is a brother in [place] and her sister's daughter in [place]. Her sister has dementia and lives nearby in assisted living. Good friend, Susan, will be caregiver. Advance Care Planning: Stephenie wants her niece to be her medical decision maker. She has AD paperwork and is working on it. Research study: Active Hospital Events: 04/17: Non neutropenic fever. Blood cx and chest xray done. Cefepime started. 04/18: TBI started, 4-da course 04/20: cefepime dc'd, levaquin started 04/22 transplant 04/25: 1.5 L stool on day shift. cdiff negative. Gi panel sent; results pending. 04/28: first temp spike, started on cefepime 05/01: subsequent temp, blood culture x1 SAFETY Patient/Family Target: Stephenie will remain safe and free from falls/injury. Progress to Target: No Change As evidenced by: Falls and mobility: Ambulating in room independently. Mental status changes: A&O x4. COMFORT/ANXIETY/BEHAVIOR Patient/Family Target: Stephenie will report her pain level as being controlled (<2/10) Progress to Target: No Change As evidenced by: Pain: denies at this time. Hemorrhoid pain with movement and BMs, PRN oxy effective Nausea: denies Bowel function: Loose BMs - improving. Imodium last 1100 Sleep: trying to sleep btwn care overnight Psych: Other: HYGIENE/INFECTION Patient/Family Target: Stephenie will remain free of s/sx of infection. Progress to Target: No Change As evidenced by: Skin: Itchy rash. Atarax PRN effective Bathing issues: shower 05/08 Central line issues: ZAHRAA Rios drsg changed 05/08 d/t peeling up in one corner. NURSING ASSESSMENT & RECOMMENDATIONS FORWARD Nursing Assessment of Patient Stability Risk: Moderately unstable Recommendations Forward: Orders to follow up on: PRN Hydralazine for SBP > 160 Labs still due: Replacements needed: HLA Plts.6 Anticipated or pending procedures: none Symptom management: Education needed: Other: Barriers to discharge: Count recovery. andoff - Devaughn, Seven lee RN - 05/09/2019 5:06 AM PSTNursing Handoff Patient Daily Goal: manage pain r/t hemerrhoids, maintain nutrition (05/04/19 0800) Patient Specific Preferences: slow the bowels (05/06/19 1219) [facility] IP NURSE HANDOFF: [facility]: Primary Diagnosis: MDS Transplant: Double Cord, Day +17 Chemo: FluCyTBI, Gamida trial PMH: Herpes Zoster Psych/Social: Stephenie is , and lives in [place] on her niece's property. Stephenie leigh shante to [place] earlier this year from [place] to be near family when she learned she was ill. Her main family is a brother in [place] and her sister's daughter in [place]. Her sister has dementia and lives nearby in assisted living. Good friend, Susan, will be caregiver. Advance Care Planning: Stephenie wants her niece to be her medical decision maker. She has AD paperwork and is working on it. Research study: Active Hospital Events: 04/17: Non neutropenic fever. Blood cx and chest xray done. Cefepime started. 04/18: TBI started, 4-da course 04/20: cefepime dc'd, levaquin started 04/22 transplant 04/25: 1.5 L stool on day shift. cdiff negative. Gi panel sent; results pending. 04/28: first temp spike, started on cefepime 05/01: subsequent temp, blood culture x1 SAFETY Patient/Family Target: Stephenie will remain safe and free from falls/injury. Progress to Target: No Change As evidenced by: Falls and mobility: Ambulating in room independently. Mental status changes: A&O x4. COMFORT/ANXIETY/BEHAVIOR Patient/Family Target: Stephenie will report her pain level as being controlled (<2/10) Progress to Target: No Change As evidenced by: Pain: Hemorrhoid pain with movement and BMs, PRN oxy effective Nausea: denies Bowel function: Loose BMs - improving. Imodium PRN Sleep: trying to sleep btwn care overnight Psych: Other: HYGIENE/INFECTION Patient/Family Target: Stephenie will remain free of s/sx of infection. Progress to Target: No Change As evidenced by: Skin: Itchy rash. Atarax PRN effective Bathing issues: shower 05/08 Central line issues: ZAHRAA Rois drsg changed 05/08 d/t peeling up in one corner. NURSING ASSESSMENT & RECOMMENDATIONS FORWARD Nursing Assessment of Patient Stability Risk: Moderately stable Recommendations Forward: Orders to follow up on: PRN Hydralazine for SBP > 160 Labs still due: Replacements needed: Anticipated or pending procedures: none Symptom management: Education needed: Other: Barriers to discharge: Count recovery. Regis - Efren De Anda RN - 05/08/2019 9:57 PM PSTNursing Handoff Patient Daily Goal: manage pain r/t hemerrhoids, maintain nutrition (05/04/19 0800) Patient Specific Preferences: slow the bowels (05/06/19 1219) [facility] IP NURSE HANDOFF: [facility]: Primary Diagnosis: MDS Transplant: Double Cord, Day +16 Chemo: FluCyTBI, Gamida trial PMH: Herpes Zoster Psych/Social: Stephenie is , and lives in [place] on her niece's property. Stephenie le[place] to [place] earlier this year from [place] to be near family when she learned she was ill. Her main family is a brother in the [place] and her sister's daughter in [place]. Her sister has dementia and lives nearby in assisted living. Good friend, Susan, will be caregiver. Advance Care Planning: Stephenie wants her niece to be her medical decision maker. She has AD paperwork and is working on it. Research study: Active Hospital Events: 04/17: Non neutropenic fever. Blood cx and chest xray done. Cefepime started. 04/18: TBI started, 4-da course 04/20: cefepime dc'd, levaquin started 04/22 transplant 04/25: 1.5 L stool on day shift. cdiff negative. Gi panel sent; results pending. 04/28: first temp spike, started on cefepime 05/01: subsequent temp, blood culture x1 SAFETY Patient/Family Target: Stephenie will remain safe and free from falls/injury. Progress to Target: No Change As evidenced by: Falls and mobility: Ambulating in room independently. Mental status changes: A&O x4. COMFORT/ANXIETY/BEHAVIOR Patient/Family Target: Stephenie will report her pain level as being controlled (<2/10) Progress to Target: No Change As evidenced by: Pain: Hemorrhoid pain with movement and BMs, PRN oxy effective Nausea: denies Bowel function: Loose BMs - improving. Imodium PRN Sleep: trying to sleep btwn care overnight Psych: Other: HYGIENE/INFECTION Patient/Family Target: Stephenie will remain free of s/sx of infection. Progress to Target: No Change As evidenced by: Skin: Itchy rash. Atarax PRN effective Bathing issues: shower 05/08 Central line issues: ZAHRAA Rios drsg changed 05/08 d/t peeling up in one corner. NURSING ASSESSMENT & RECOMMENDATIONS FORWARD Nursing Assessment of Patient Stability Risk: Moderately stable Recommendations Forward: Orders to follow up on: PRN Hydralazine for SBP > 160 Labs still due: Replacements needed: Anticipated or pending procedures: none Symptom management: Education needed: Other: Barriers to discharge: Count recovery. andoff - Devaughn, April giang RN - 05/08/2019 5:22 AM PSTNursing Handoff Patient Daily Goal: manage pain r/t hemerrhoids, maintain nutrition (05/04/19 0800) Patient Specific Preferences: slow the bowels (05/06/19 1219) [facility] IP NURSE HANDOFF: [facility]: Primary Diagnosis: MDS Transplant: Double Cord, Day +16 Chemo: FluCyTBI, Gamida trial PMH: Herpes Zoster Psych/Social: Stephenie is , and lives in [place] on her niece's property. Stephenie [place] to [place] earlier this year from [place] to be near family when she learned she was ill. [place] and her sister's daughter in [place]. Her sister has dementia and lives nearby in assisted living. Good friend, Susan, will be caregiver. Advance Care Planning: Stephenie wants her niece to be her medical decision maker. She has AD paperwork and is working on it. Research study: Active Hospital Events: 04/17: Non neutropenic fever. Blood cx and chest xray done. Cefepime started. 04/18: TBI started, 4-da course 04/20: cefepime dc'd, levaquin started 04/22 transplant 04/25: 1.5 L stool on day shift. cdiff negative. Gi panel sent; results pending. 04/28: first temp spike, started on cefepime 05/01: subsequent temp, blood culture x1 SAFETY Patient/Family Target: Stephenie will remain safe and free from falls/injury. Progress to Target: No Change As evidenced by: Falls and mobility: Ambulating in room independently. Mental status changes: A&O x4. COMFORT/ANXIETY/BEHAVIOR Patient/Family Target: Stephenie will report her pain level as being controlled (<2/10) Progress to Target: No Change As evidenced by: Pain: Hemorrhoid pain with movement and BMs, PRN oxy effective Nausea: denies Bowel function: Loose BMs. Imodium PRN Sleep: trying to sleep btwn care overnight Psych: Other: HYGIENE/INFECTION Patient/Family Target: Stephenie will remain free of s/sx of infection. Progress to Target: No Change As evidenced by: Skin: Itchy rash. Atarax PRN effective Bathing issues: shower 05/07 Central line issues: LEOBARDOE Edong c/d/i. NURSING ASSESSMENT & RECOMMENDATIONS FORWARD Nursing Assessment of Patient Stability Risk: Moderately unstable Recommendations Forward: Orders to follow up on: PRN Hydralazine for SBP > 160 Labs still due: Replacements needed: Anticipated or pending procedures: none Symptom management: Education needed: Other: Barriers to discharge: Count recovery. 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 Stephenie [place] to [place] earlier this year from [place] to be [place] family when she learned she was ill. Her main family is a brother [place] and her sister's daughter in [place]. Her sister has dementia and lives nearby in assisted living. Good friend, Susan, will be caregiver. Advance Care Planning: Stephenie wants her niece to be her medical decision maker. She has AD paperwork and is working on it. Research study: Active Hospital Events: 04/17: Non neutropenic fever. Blood cx and chest xray done. Cefepime started. 04/18: TBI started, 4-da course 04/20: cefepime dc'd, levaquin started 04/22 transplant 04/25: 1.5 L stool on day shift. cdiff negative. Gi panel sent; results pending. 04/28: first temp spike, started on cefepime 05/01: subsequent temp, blood culture x1 SAFETY Patient/Family Target: Stephenie will remain safe and free from falls/injury. Progress to Target: No Change As evidenced by: Falls and mobility: safety/fall precautions reinforced. Steady sit/stand/gait noted when OOB. Pt aware of limitations and utilizes call light appropriately. Bedside commode set up. Ambulating in room independently. Mental status changes: A&O x4. COMFORT/ANXIETY/BEHAVIOR Patient/Family Target: Stephenie will report her pain level as being controlled (<2/10) Progress to Target: No Change As evidenced by: Pain: Hemorrhoid pain with movement and BMs, stephenie rpts pain decreased and feeling like hemorrhoid is shrinking. Utilizing PRN Oxycodone/Dilaudid. K-pad, and PRN Imodium. Intermitt ent headache, PRN Tylenol effective, last given this AM. Has creams available for ivone-recta l area performed independently by patient. Nausea: denies Bowel function: LBM 05/07. Imodium PRN X2 this shift Sleep: trying to sleep btwn care overnight Psych: Other: HYGIENE/INFECTION Patient/Family Target: Stephenie will remain free of s/sx of infection. Progress to Target: No Change As evidenced by: Skin: Flushed, ecchymosis. New progressive rash, increased on torso, head, ears, and hand s, legs. Concern for hyperacute GvHD vs engraftment syndrome. (steroids started) Derm consul FRAN thomas skin biopsy 05/04, bandage in place-suture removal 05/18/19 Kenalog ointment at beds tai S/s of infection: Subsequent temp 05/03. On Cefepime. -04/28 blood cultures positive for gram positive cocci. Bathing issues: shower 05/03 Central line issues: ZAHRAA Rios c/d/i. NURSING ASSESSMENT & RECOMMENDATIONS FORWARD Nursing Assessment of Patient Stability Risk: Moderately unstable Recommendations Forward: Orders to follow up on: Platelet transfusion? Team would like to s ee BP lower. Would check in with [facility] this evening since Lisinopril started. Labs still due: Replacements needed:HLA platelets ordered to hold because of high BP Anticipated or pending procedures: none Symptom management: Skin: Monitor rash on torso, head, ears, and hands: atarax now available Resp: O2-2L, fluid overload, lasix given 05/04 and 05/06 GI: painful hemorrhoids, prn oxycodone & tylenol, creams at bedside. Prn imodium for loose stool. CV: monitor for fevers with concerns for engraftment syndrome. Education needed: reinforcement of transplant expectations Other: ECHO completed 05/02 -BP were high this afternoon, hydralazine PRN: given x1, to start on scheduled BP meds toda y Barriers to discharge: Count recovery. 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 Stephenie m [place] to [place] earlier this year from [place] to be near family when she learned she was ill. Her main family is a brother [place] and her sister's daughter in [place]. Her sister has dementia and lives nearby in assisted living. Good friend, Susan, will be caregiver. Advance Care Planning: Stephenie wants her niece to be her medical decision maker. She has AD paperwork and is working on it. Research study: Active Hospital Events: 04/17: Non neutropenic fever. Blood cx and chest xray done. Cefepime started. 04/18: TBI started, 4-da course 04/20: cefepime dc'd, levaquin started 04/22 transplant 04/25: 1.5 L stool on day shift. cdiff negative. Gi panel sent; results pending. 04/28: first temp spike, started on cefepime 05/01: subsequent temp, blood culture x1 SAFETY Patient/Family Target: Stephenie will remain safe and free from falls/injury. Progress to Target: No Change As evidenced by: Falls and mobility: safety/fall precautions reinforced. Steady sit/stand/gait noted when OOB. Pt aware of limitations and utilizes call light appropriately. Bedside commode set up. Ambulating in room independently. Mental status changes: A&O x4. COMFORT/ANXIETY/BEHAVIOR Patient/Family Target: Stephenie will report her pain level as being controlled (<2/10) Progress to Target: No Change As evidenced by: Pain: Hemorrhoid pain with movement and BMs, stephenie rpts pain decreased and feeling like hemorrhoid is shrinking. Utilizing PRN Oxycodone/Dilaudid. K-pad, and PRN Imodium. Intermitt ent headache, PRN Tylenol effective, last given this AM. Has creams available for ivone-recta l area performed independently by patient. Nausea: denies Bowel function: LBM 05/07. Imodium PRN X2 this shift Sleep: trying to sleep btwn care overnight Psych: Other: HYGIENE/INFECTION Patient/Family Target: Stephenie will remain free of s/sx of infection. Progress to Target: No Change As evidenced by: Skin: Flushed, ecchymosis. New progressive rash, increased on torso, head, ears, and hand s, legs. Concern for hyperacute GvHD vs engraftment syndrome. (steroids started) Derm consul FRAN thomas skin biopsy 05/04, bandage in place-suture removal 05/18/19 Kenalog ointment at beds tai S/s of infection: Subsequent temp 05/03. On Cefepime. -04/28 blood cultures positive for gram positive cocci. Bathing issues: shower 05/03 Central line issues: LEOBARDOE Groshong c/d/i. NURSING ASSESSMENT & RECOMMENDATIONS FORWARD Nursing Assessment of Patient Stability Risk: Moderately unstable Recommendations Forward: Orders to follow up on: Labs still due: Replacements needed:HLA platelets ordered to hold because of high BP Anticipated or pending procedures: none Symptom management: Skin: Monitor rash on torso, head, ears, and hands: atarax now available Resp: O2-2L, fluid overload, lasix given 05/04 and 05/06 GI: painful hemorrhoids, prn oxycodone & tylenol, creams at bedside. Prn imodium for loose stool. CV: monitor for fevers with concerns for engraftment syndrome. Education needed: reinforcement of transplant expectations Other: ECHO completed 05/02 -BP were high this afternoon, hydralazine PRN: given x1, to start on scheduled BP meds toda y Barriers to discharge: Count recovery. 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 Stephenie [place] to [place] earlier this year from [place] to be near family when she learned she was ill. [place] and her sister's daughter in [place]. Her sister has dementia and lives nearby in assisted living. Good friend, Susan, will be caregiver. Advance Care Planning: Stephenie wants her niece to be her medical decision maker. She has AD paperwork and is working on it. Research study: Active Hospital Events: 04/17: Non neutropenic fever. Blood cx and chest xray done. Cefepime started. 04/18: TBI started, 4-da course 04/20: cefepime dc'd, levaquin started 04/22 transplant 04/25: 1.5 L stool on day shift. cdiff negative. Gi panel sent; results pending. 04/28: first temp spike, started on cefepime 05/01: subsequent temp, blood culture x1 SAFETY Patient/Family Target: Stephenie will remain safe and free from falls/injury. Progress to Target: No Change As evidenced by: Falls and mobility: safety/fall precautions reinforced. Steady sit/stand/gait noted when OOB. Pt aware of limitations and utilizes call light appropriately. Bedside commode set up. Ambulating in room independently. Mental status changes: A&O x4. COMFORT/ANXIETY/BEHAVIOR Patient/Family Target: Stephenie will report her pain level as being controlled (<2/10) Progress to Target: No Change As evidenced by: Pain: Hemorrhoid pain with movement and BMs, stephenie rpts pain decreased and feeling like hemorrhoid is shrinking. Utilizing PRN Oxycodone/Dilaudid. K-pad, and PRN Imodium. Intermitt ent headache, PRN Tylenol effective, last given this AM. Has creams available for ivone-recta l area performed independently by patient. Nausea: denies Bowel function: LBM 05/07. Imodium PRN X2 this shift Sleep: trying to sleep btwn care overnight Psych: Other: HYGIENE/INFECTION Patient/Family Target: Stephenie will remain free of s/sx of infection. Progress to Target: No Change As evidenced by: Skin: Flushed, ecchymosis. New progressive rash, increased on torso, head, ears, and hand s, legs. Concern for hyperacute GvHD vs engraftment syndrome. (steroids started) Derm consul FRAN thomas skin biopsy 05/04, bandage in place-suture removal 05/18/19 Kenalog ointment at beds tai S/s of infection: Subsequent temp 05/03. On Cefepime. -04/28 blood cultures positive for gram positive cocci. Bathing issues: shower 05/03 Central line issues: ZAHRAA Wardong c/d/i. NURSING ASSESSMENT & RECOMMENDATIONS FORWARD Nursing Assessment of Patient Stability Risk: Moderately unstable Recommendations Forward: Orders to follow up on: Labs still due: Replacements needed: RBCs running. Please see see team about HLA platelets Anticipated or pending procedures: none Symptom management: Skin: Monitor rash on torso, head, ears, and hands. Resp: O2-2L, fluid overload, lasix given 05/04 and 05/06 GI: painful hemorrhoids, prn oxycodone & tylenol, creams at bedside. Prn imodium for loose stool. CV: monitor for fevers with concerns for engraftment syndrome. Education needed: reinforcement of transplant expectations Other: ECHO completed 05/02 Barriers to discharge: Count recovery. 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 Stephenie [place] to [place] earlier this year from [place] to be near family when she learned she was ill. Her [place] [facility] and her sister's daughter in [place]. Her sister has dementia and lives nearby in assisted living. Good friend, Susan, will be caregiver. Advance Care Planning: Stephenie wants her niece to be her medical decision maker. She has AD paperwork and is working on it. Research study: Active Hospital Events: 04/17: Non neutropenic fever. Blood cx and chest xray done. Cefepime started. 04/18: TBI started, 4-da course 04/20: cefepime dc'd, levaquin started 04/22 transplant 04/25: 1.5 L stool on day shift. cdiff negative. Gi panel sent; results pending. 04/28: first temp spike, started on cefepime 05/01: subsequent temp, blood culture x1 SAFETY Patient/Family Target: Stephenie will remain safe and free from falls/injury. Progress to Target: No Change As evidenced by: Falls and mobility: safety/fall precautions reinforced. Steady sit/stand/gait noted when OOB. Pt aware of limitations and utilizes call light appropriately. Bedside commode set up. Ambulating in room independently. Mental status changes: A&O x4. COMFORT/ANXIETY/BEHAVIOR Patient/Family Target: Stephenie will report her pain level as being controlled (<2/10) Progress to Target: No Change As evidenced by: Pain: Hemorrhoid pain with movement and BMs, stephenie rpts pain decreased and feeling like hemorrhoid is shrinking. Utilizing PRN Oxycodone/Dilaudid. K-pad, and PRN Imodium. Intermitt ent headache, PRN Tylenol effective, last given this AM. Has creams available for ivone-recta l area performed independently by patient. Nausea: denies Bowel function: LBM 11/8. Imodium PRN X1 this shift Sleep: trying to sleep btwn care overnight Psych: Other: HYGIENE/INFECTION Patient/Family Target: Stephenie will remain free of s/sx of infection. Progress to Target: No Change As evidenced by: Skin: Flushed, ecchymosis. New progressive rash, increased on torso, head, ears, and hand s, legs. Concern for hyperacute GvHD vs engraftment syndrome. (steroids started) Derm consul marthaFRAN skin biopsy 05/04, bandage in place-suture removal 05/18/19 Kenalog ointment at beds tai S/s of infection: Subsequent temp 05/03. On Cefepime. -04/28 blood cultures positive for gram positive cocci. Bathing issues: shower 05/03 Central line issues: LUE Groshong c/d/i. NURSING ASSESSMENT & RECOMMENDATIONS FORWARD Nursing Assessment of Patient Stability Risk: Moderately unstable Recommendations Forward: Orders to follow up on: Labs still due: Replacements needed: plt and kcl replaced Anticipated or pending procedures: none Symptom management: Skin: Monitor rash on torso, head, ears, and hands. Resp: O2-2L, fluid overload, lasix given 05/04 and 05/06 GI: painful hemorrhoids, prn oxycodone & tylenol, creams at bedside. Prn imodium for loose stool. CV: monitor for fevers with concerns for engraftment syndrome. Education needed: reinforcement of transplant expectations Other: ECHO completed 05/02 Barriers to discharge: Count recovery. 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 Stephen[place] earlier this year [place] family when she learned she was ill. [place] and her sister's daughter in [place]. Her sister has dementia and lives nearby in assisted living. Good friend, Susan, will be caregiver. Advance Care Planning: Stephenie wants her niece to be her medical decision maker. She has AD paperwork and is working on it. Research study: Active Hospital Events: 04/17: Non neutropenic fever. Blood cx and chest xray done. Cefepime started. 04/18: TBI started, 4-da course 04/20: cefepime dc'd, levaquin started 04/22 transplant 04/25: 1.5 L stool on day shift. cdiff negative. Gi panel sent; results pending. 04/28: first temp spike, started on cefepime 05/01: subsequent temp, blood culture x1 SAFETY Patient/Family Target: Stephenie will remain safe and free from falls/injury. Progress to Target: No Change As evidenced by: Falls and mobility: safety/fall precautions reinforced. Steady sit/stand/gait noted when OOB. Pt aware of limitations and utilizes call light appropriately. Bedside commode set up. Ambulating in room independently. Mental status changes: A&O x4. COMFORT/ANXIETY/BEHAVIOR Patient/Family Target: Stephenie will report her pain level as being controlled (<2/10) Progress to Target: No Change As evidenced by: Pain: Hemorrhoid pain with movement and BMs, stephenie rpts pain decreased and feeling like hemorrhoid is shrinking. Utilizing PRN Oxycodone/Dilaudid. K-pad, and PRN Imodium. Intermitt ent headache, PRN Tylenol effective, last given this AM. Has creams available for ivone-recta l area performed independently by patient. Nausea: denies Bowel function: LBM 11. Imodium PRN X1 this shift Sleep: trying to sleep btwn care overnight Psych: Other: HYGIENE/INFECTION Patient/Family Target: Stephenie will remain free of s/sx of infection. Progress to Target: No Change As evidenced by: Skin: Flushed, ecchymosis. New progressive rash, increased on torso, head, ears, and hand s, legs. Concern for hyperacute GvHD vs engraftment syndrome. Derm consulted, FRAN skin biops y 05/04, bandage in place. Kenalog ointment at bedside S/s of infection: Subsequent temp 05/03. On Cefepime. -04/28 blood cultures positive for gram positive cocci. Bathing issues: shower 05/03 Central line issues: ZAHRAA Rios c/d/i. NURSING ASSESSMENT & RECOMMENDATIONS FORWARD Nursing Assessment of Patient Stability Risk: Moderately unstable Recommendations Forward: Orders to follow up on: - 40 of Lasix today - Steroids started for possible engraftment syndrome. Labs still due: Replacements needed: Anticipated or pending procedures: none Symptom management: Skin: Monitor rash on torso, head, ears, and hands. Resp: Increased oxygen needs 05/04, lasix x 2 given with good effect. FB negative & Sats >92 % RA this candice. GI: painful hemorrhoids, prn oxycodone & tylenol, creams at bedside. Prn imodium for loose stool. CV: monitor for fevers with concerns for engraftment syndrome. Education needed: reinforcement of transplant expectations Other: ECHO completed 05/02 Barriers to discharge: Count recovery. andoff - Aldo Ellis RN - 05/06/2019 11:04 AM PSTNursing Handoff Patient Daily Goal: manage pain r/t hemerrhoids, maintain nutrition (05/04/19 0800) Patient Specific Preferences: Ice water. 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 Stephenie [place] to [place] earlier this year [place] to be near family when she learned she was ill. Her main family is a brother in [place] and her sister's daughter in [place]. Her sister has dementia and lives nearby in assisted living. Good friend, Susan, will be caregiver. Advance Care Planning: Stephenie wants her niece to be her medical decision maker. She has AD paperwork and is working on it. Research study: Active Hospital Events: 04/17: Non neutropenic fever. Blood cx and chest xray done. Cefepime started. 04/18: TBI started, 4-da course 04/20: cefepime dc'd, levaquin started 04/22 transplant 04/25: 1.5 L stool on day shift. cdiff negative. Gi panel sent; results pending. 04/28: first temp spike, started on cefepime 05/01: subsequent temp, blood culture x1 SAFETY Patient/Family Target: Stephenie will remain safe and free from falls/injury. Progress to Target: No Change As evidenced by: Falls and mobility: safety/fall precautions reinforced. Steady sit/stand/gait noted when OOB. Pt aware of limitations and utilizes call light appropriately. Bedside commode set up. Mental status changes: A&O x4. COMFORT/ANXIETY/BEHAVIOR Patient/Family Target: Stephenie will report her pain level as being controlled (<2/10) Progress to Target: No Change As evidenced by: Pain: Hemorrhoid pain with movement and BMs. Utilizing PRN Oxycodone/Dilaudid. K-pad, and PRN Imodium. Intermittent headache, PRN Tylenol effective, last given this AM. Has creams a vailable for ivone-rectal area performed independently by patient. Nausea: denies Bowel function: LBM 11. Very painful BMs due to hemorroids. Imodium PRN Sleep: trying to sleep btwn care overnight Psych: Other: HYGIENE/INFECTION Patient/Family Target: Stephenie will remain free of s/sx of infection. Progress to Target: No Change As evidenced by: Skin: Flushed, ecchymosis. New progressive rash, increased on torso, head, ears, and hand s. Concern for hyperacute GvHD vs engraftment syndrome. Derm consulted, ELDONE skin biopsy 05/04 , bandage in place. Kenalog ointment at bedside S/s of infection: Subsequent temp 05/03. On Cefepime. -04/28 blood cultures positive for gram positive cocci. Bathing issues: shower 05/03 Central line issues: ZAHRAA Rios c/d/i. NURSING ASSESSMENT & RECOMMENDATIONS FORWARD Nursing Assessment of Patient Stability Risk: Moderately stable Recommendations Forward: Orders to follow up on: - 40 of Lasix today - Steroids started for possible engraftment syndrome. Labs still due: Replacements needed: Anticipated or pending procedures: none Symptom management: Skin: Monitor rash on torso, head, ears, and hands. Resp: Increased oxygen needs 05/04, lasix x 2 given with good effect. FB negative & Sats >92 % RA this candice. GI: painful hemorrhoids, prn oxycodone & tylenol, creams at bedside. Prn imodium for loose stool. CV: monitor for fevers with concerns for engraftment syndrome. Education needed: reinforcement of transplant expectations Other: ECHO completed 05/02 Barriers to discharge: Count recovery. lan of Care - Marla Knight RD - 05/06/2019 10:02 AM PST Problem: Nutrition Interventions Intervention: Food and nutrient distribution type or amount Note: Pt with no solid intake at this time. Continues with adequate fluid intake - including Ens ure Cl Nutrition Diagnosis: predicted inadequate oral intake r/t pretransplant regimen. Goal of Nutrition Care: promote adequate oral intake Continue with low bacteria diet Encourage PO as tolerated Treat symptoms PRN Following Marla Wells RD, GREASE RENDERER, LD Pager [phone] 53 year old female with MDS admit for Flu/TBI/Cy followed by double cord (on gamida trial- randomized to SOC) on 04/22/19 Low bacteria diet: 2640 ml (includes ensure cl) 5'2" 68.8 kg BMI: 27.6 Est needs: [id number] david (25-30 david/kg) 103-123 g pro (1.5-1.8 gpro/kg)Electronically jennifer d by Marla Wells RD at 05/06/2019 10:03 AM PSTHandoff - Camilla Chavez RN - 05/06/2019 1:13 AM PSTNursing Handoff Patient Daily Goal: manage pain r/t hemerrhoids, maintain nutrition (05/04/19 0800) Patient Specific Preferences: Ice water. 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 Stephenie [place] to [place] earlier this year [place] be [place] family when she learned she was ill. [place] and her sister's daughter in [place]. Her sister has dementia and lives nearby in assisted living. Good friend, Susan, will be caregiver. Advance Care Planning: Stephenie wants her niece to be her medical decision maker. She has AD paperwork and is working on it. Research study: Active Hospital Events: 04/17: Non neutropenic fever. Blood cx and chest xray done. Cefepime started. 04/18: TBI started, 4-da course 04/20: cefepime dc'd, levaquin started 04/22 transplant 04/25: 1.5 L stool on day shift. cdiff negative. Gi panel sent; results pending. 04/28: first temp spike, started on cefepime 05/01: subsequent temp, blood culture x1 SAFETY Patient/Family Target: Stephenie will remain safe and free from falls/injury. Progress to Target: No Change As evidenced by: Falls and mobility: safety/fall precautions reinforced. Steady sit/stand/gait noted when OOB. Pt aware of limitations and utilizes call light appropriately. Bedside commode set up. Mental status changes: A&O x4. COMFORT/ANXIETY/BEHAVIOR Patient/Family Target: Stephenie will report her pain level as being controlled (<2/10) Progress to Target: No Change As evidenced by: Pain: Hemorrhoid pain with movement and BMs. Utilizing PRN Oxycodone/Dilaudid. K-pad, and PRN Imodium. Intermittent headache, PRN Tylenol effective, last given this AM. Has creams a vailable for ivone-rectal area performed independently by patient. Nausea: denies Bowel function: LBM 05/04. Very painful BMs due to hemorroids. immodium given x 1 this AM Sleep: trying to sleep btwn care overnight Psych: Other: HYGIENE/INFECTION Patient/Family Target: Stephenie will remain free of s/sx of infection. Progress to Target: No Change As evidenced by: Skin: Flushed, ecchymosis. New progressive rash, increased on torso, head, ears, and hand s. Concern for hyperacute GvHD vs engraftment syndrome. Derm consulted, FRAN skin biopsy 05/04 , bandage in place. Kenalog ointment at bedside S/s of infection: Subsequent temp 05/03. On Cefepime. -04/28 blood cultures positive for gram positive cocci. Bathing issues: shower 05/03 Central line issues: ZAHRAA Rios c/d/i. NURSING ASSESSMENT & RECOMMENDATIONS FORWARD Nursing Assessment of Patient Stability Risk: Moderately stable Recommendations Forward: Orders to follow up on: - 40 of Lasix today with good response - Steroids started today for possible engraftment syndrome. Labs still due: Replacements needed: plts infusing, K-Clor sched @0900 Anticipated or pending procedures: none Symptom management: Skin: Monitor rash on torso, head, ears, and hands. Resp: Increased oxygen needs 05/04, lasix x 2 given with good effect. FB negative & Sats >92 % RA this candice. GI: painful hemorrhoids, prn oxycodone & tylenol, creams at bedside. Prn imodium for loose stool. CV: monitor for fevers with concerns for engraftment syndrome. Education needed: reinforcement of transplant expectations Other: ECHO completed 05/02 Barriers to discharge: Count recovery. andoff - Ayanna Chanel RN - 05/05/2019 7:50 PM PSTNursing Handoff Patient Daily Goal: manage pain r/t hemerrhoids, maintain nutrition (05/04/19 0800) Patient Specific Preferences: Ice water. 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 Stephenie [place] to [place] earlier this year [place] be [place] family when she learned she was ill. Her main family is a brother in [place] and her sister's daughter in [place]. Her sister has dementia and lives nearby in assisted living. Good friend, Susan, will be caregiver. Advance Care Planning: Stephenie wants her niece to be her medical decision maker. She has AD paperwork and is working on it. Research study: Active Hospital Events: 04/17: Non neutropenic fever. Blood cx and chest xray done. Cefepime started. 04/18: TBI started, 4-da course 04/20: cefepime dc'd, levaquin started 04/22 transplant 04/25: 1.5 L stool on day shift. cdiff negative. Gi panel sent; results pending. 04/28: first temp spike, started on cefepime 05/01: subsequent temp, blood culture x1 SAFETY Patient/Family Target: Stephenie will remain safe and free from falls/injury. Progress to Target: No Change As evidenced by: Falls and mobility: safety/fall precautions reinforced. Steady sit/stand/gait noted when OOB. Pt aware of limitations and utilizes call light appropriately. Bedside commode set up. Mental status changes: A&O x4. COMFORT/ANXIETY/BEHAVIOR Patient/Family Target: Stephenie will report her pain level as being controlled (<2/10) Progress to Target: No Change As evidenced by: Pain: Hemorrhoid pain with movement and BMs. Utilizing PRN Oxycodone/Dilaudid. K-pad, and PRN Imodium. Intermittent headache, PRN Tylenol effective, last given this AM. Has creams a vailable for ivone-rectal area performed independently by patient. Nausea: denies Bowel function: LBM 05/04. Very painful BMs due to hemorroids. immodium given x 1 this AM Sleep: trying to sleep btwn care overnight Psych: Other: HYGIENE/INFECTION Patient/Family Target: Stephenie will remain free of s/sx of infection. Progress to Target: No Change As evidenced by: Skin: Flushed, ecchymosis. New progressive rash, increased on torso, head, ears, and hand s. Concern for hyperacute GvHD vs engraftment syndrome. Derm consulted, RUE skin biopsy 05/04 , bandage in place. Kenalog ointment at bedside S/s of infection: Subsequent temp 05/03. On Cefepime. -04/28 blood cultures positive for gram positive cocci. Bathing issues: shower 05/03 Central line issues: ZAHRAA Rios c/d/i. NURSING ASSESSMENT & RECOMMENDATIONS FORWARD Nursing Assessment of Patient Stability Risk: Moderately stable Recommendations Forward: Orders to follow up on: - 40 of Lasix today with good response - Steroids started today for possible engraftment syndrome. Labs still due: Replacements needed: Anticipated or pending procedures: none Symptom management: Skin: Monitor rash on torso, head, ears, and hands. Resp: Increased oxygen needs 05/04, lasix x 2 given with good effect. FB negative & Sats >92 % RA this candice. GI: painful hemorrhoids, prn oxycodone & tylenol, creams at bedside. Prn imodium for loose stool. CV: monitor for fevers with concerns for engraftment syndrome. Education needed: reinforcement of transplant expectations Other: ECHO completed 05/02 Barriers to discharge: Count recovery. andoff - Camilla Chavez RN - 05/05/2019 6:44 AM PSTNursing Handoff Patient Daily Goal: manage pain r/t hemerrhoids, maintain nutrition (05/04/19 0800) Patient Specific Preferences: Ice water. 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 Stephenie [place] to [place] earlier this year [place] be [place] family when she learned she was ill. Her main family is a [place] and her sister's daughter in [place]. Her sister has dementia and lives nearby in assisted living. Good friend, Susan, will be caregiver. Advance Care Planning: Stephenie wants her niece to be her medical decision maker. She has AD paperwork and is working on it. Research study: Active Hospital Events: 04/17: Non neutropenic fever. Blood cx and chest xray done. Cefepime started. 04/18: TBI started, 4-da course 04/20: cefepime dc'd, levaquin started 04/22 transplant 04/25: 1.5 L stool on day shift. cdiff negative. Gi panel sent; results pending. 04/28: first temp spike, started on cefepime 05/01: subsequent temp, blood culture x1 SAFETY Patient/Family Target: Stephenie will remain safe and free from falls/injury. Progress to Target: No Change As evidenced by: Falls and mobility: safety/fall precautions reinforced. Steady sit/stand/gait noted when OOB. Increased SOB this overnight, gave 40mg Lasix. Pt aware of limitations and utilizes david l light appropriately. Bedside commode set up. Mental status changes: A&O x4. COMFORT/ANXIETY/BEHAVIOR Patient/Family Target: Stephenie will report her pain level as being controlled (<2/10) Progress to Target: No Change As evidenced by: Pain: Hemorrhoid pain with movement and BMs. Utilizing PRN Oxycodone/Dilaudid. K-pad, and PRN Imodium. Intermittent headache, PRN Tylenol effective, last given this AM. Has creams a vailable for ivone-rectal area performed independently by patient. Nausea: denies Bowel function: LBM 05/04. Very painful BMs due to hemorroids. immodium given x 1 this AM Sleep: trying to sleep btwn care overnight Psych: Other: HYGIENE/INFECTION Patient/Family Target: Stephenie will remain free of s/sx of infection. Progress to Target: No Change As evidenced by: Skin: Flushed, ecchymosis. New progressive rash, increased on torso, head, ears, and hand s. Concern for hyperacute GvHD vs engraftment syndrome. Derm consulted, RUE skin biopsy 05/04 , bandage in place. Kenalog ointment at bedside S/s of infection: Subsequent temp 05/03. On Cefepime. -04/28 blood cultures positive for gram positive cocci. Bathing issues: shower 05/03 Central line issues: ZAHRAA Rios c/d/i. NURSING ASSESSMENT & RECOMMENDATIONS FORWARD Nursing Assessment of Patient Stability Risk: Moderately stable Recommendations Forward: Orders to follow up on: Labs still due: still needs 1 more post platelet as of 05/05 AM - Do not replace based on the post platelet count unless s/s of bleeding Replacements needed: plts complete - Check post platelets for the next 2 platelet transfusions. Anticipated or pending procedures: none Symptom management: Skin: Monitor rash on torso, head, ears, and hands. Resp: Increased oxygen needs 05/04, lasix x 2 given with good effect. FB negative & Sats >92 % RA this candice. GI: painful hemorrhoids, prn oxycodone & tylenol, creams at bedside. Prn imodium for loose stool. CV: monitor for fevers with concerns for engraftment syndrome. Education needed: reinforcement of transplant expectations Other: ECHO completed 05/02 Barriers to discharge: Count recovery. andoff - Iman Dominguez, RN - 05/04/2019 7:30 PM PSTNursing Handoff Patient Daily Goal: To eat more and go home soon. (05/16/19 0634) [facility] IP NURSE HANDOFF: [facility] events: Primary Diagnosis: MDS Transplant: Double Cord, Day +24 Chemo: Flu/Cy/TBI, Gamida trial PMH: Herpes Zoster, HTN, Platelet refractory - requires HLA matched Psych/Social: Stephenie is , and lives in [place] on her niece's property. Stephenie [place] to [place] earlier this year from [place] be near family when she learned she was ill. Her main family is a brother [place] and her sister's daughter in [place]. Her sister has dementia and lives nearby in assisted living. Good friend, Susan, will be caregiver. Advance Care Planning: Stephenie wants her niece to be her medical decision maker. She has AD paperwork and is working on it. Research study: Active Hospital Events: 04/17: Non neutropenic fever. Blood cx and chest xray done. Cefepime started. 04/18: TBI started, 4-day course 04/20: cefepime dc'd, levaquin started 04/22 transplant 04/25: 1.5 L stool on day shift. cdiff negative. Gi panel sent; results pending. 04/28: first temp spike, started on cefepime 05/01: subsequent temp, blood culture x1 05/16: First day of engraftment. ANC 580 this morning. SAFETY Patient/Family Target: Stephenie will not fall Progress to Target: No Change As evidenced by: Falls and mobility: Ambulating in room independently. Using call light appropriately. Be dside commode PRN at [facility] for urgency. Mental status changes: Other: COMFORT/ANXIETY/BEHAVIOR Patient/Family Target: Stephenie will have pain & nausea controlled Progress to Target: No Change As evidenced by: Pain: Intermittent bilateral back of leg pain only when standing or walking. CK level nor mal. Declines need for meds at this time. States minimal relief with oxy and flexeril. Nausea: intermittent, but improved with scheduled Zofran & Compazine Bowel function: Loose to liquid BMs, decreasing in frequency, Imodium prn. HYGIENE/INFECTION Patient/Family Target: Stephenie will remain free of s/sx of infection. Progress to Target: No Change As evidenced by: CHG Bathing: Last shower 05/15, no CHG due to rash Central line: ZAHRAA Rios CDI. Dressing change due 05/22 Other: VS stable, afebrile. Runny nose - RVP 05/13 negative NURSING ASSESSMENT & RECOMMENDATIONS FORWARD Nursing Assessment of Patient Stability Risk: Moderately stable Recommendations Forward: Orders to follow up on: - PRN Hydralazine for SBP > 160 -Three units HLA-matched platelets on order - remove suture from skin biopsy site on 05/18 Labs still due: [place] level Q Thu/Sun before morning dose Replacements needed: Mg 4 gm infusing. The blood bank had no HLA-matched platelets availabl e this morning, but three are on order. Once they arrive she will need a transfusion. Anticipated or pending procedures: Symptom management: - Imodium prn - Sitz bath PRN Education needed: Other: decreased appetite. Likes shakes made with: Vanilla almond milk, vanilla carnation i nstant breakfast, and raspberry sorbet. Stephenie's ANC is 580 today! Barriers to discharge: The caregiver needs to arrive and receive education. Stephenie's oral i ntake is not great and may be a barrier to discharge. They will be staying at [facility] upon discharge. Nursing Handoff Patient Daily Goal: manage pain r/t hemerrhoids, maintain nutrition (05/04/19 0800) Patient Specific Preferences: Ice water. (04/16/191954) [facility] IP NURSE HANDOFF: [facility] events: Primary Diagnosis: MDS Transplant: Double Cord, Day +12 Chemo: FluCyTBI, Gamida trial PMH: Herpes Zoster Psych/Social: Stephenie is , and lives in [place] on her niece's property. Stephenie [place] to [place] earlier this year from [place] to be near family when she learned she was ill. [place] [facility] and her sister's daughter in [place]. Her sister has dementia and lives nearby in assisted living. Good friend, Susan, will be caregiver. Advance Care Planning: Stephenie wants her niece to be her medical decision maker. She has AD paperwork and is working on it. Research study: Active Hospital Events: 04/17: Non neutropenic fever. Blood cx and chest xray done. Cefepime started. 04/18: TBI started, 4-da course 04/20: cefepime dc'd, levaquin started 04/22 transplant 04/25: 1.5 L stool on day shift. cdiff negative. Gi panel sent; results pending. 04/28: first temp spike, started on cefepime 05/01: subsequent temp, blood culture x1 SAFETY Patient/Family Target: Stephenie will remain safe and free from falls/injury. Progress to Target: No Change As evidenced by: Falls and mobility: safety/fall precautions reinforced. Steady sit/stand/gait noted when OOB. Increased SOB this AM, gave 20mg Lasix. Pt aware of limitations and utilizes call light appropriately. Bedside commode set up. Mental status changes: A&O x4. COMFORT/ANXIETY/BEHAVIOR Patient/Family Target: Stephenie will report her pain level as being controlled (<2/10) Progress to Target: No Change As evidenced by: Pain: Hemorrhoid pain with movement and BMs. Utilizing PRN Oxycodone/Dilaudid, gave 10mg this AM. K-pad, and PRN Imodium. Intermittent headache, PRN Tylenol effectuive. Has creams a vailable for ivone-rectal area performed independently by patient. Nausea: denies Bowel function: LBM 05/04. Very painful BMs due to hemorroids. immodium given x 1 this AM Sleep: trying to sleep btwn care overnight Psych: Other: HYGIENE/INFECTION Patient/Family Target: Stephenie will remain free of s/sx of infection. Progress to Target: No Change As evidenced by: Skin: Flushed, ecchymosis. New progressive rash, increased on torso, head, ears, and hand s. Concern for hyperacute GvHD vs engraftment syndrome. Derm consulted, RUE skin biopsy 05/04 , bandage in place. S/s of infection: Subsequent temp 05/03. On Cefepime. -04/28 blood cultures positive for gram positive cocci. Bathing issues: shower 05/03 Central line issues: ZAHRAA Rios c/d/i. NURSING ASSESSMENT & RECOMMENDATIONS FORWARD Nursing Assessment of Patient Stability Risk: Moderately stable Recommendations Forward: Orders to follow up on: Labs still due: - Do not replace based on the post platelet count unless s/s of bleeding Replacements needed: - Please ask blood bank for freshest platelet product available - Check post platelets for the next 2 platelet transfusions. Anticipated or pending procedures: none Symptom management: Skin: Monitor rash on torso, head, ears, and hands. Resp: Increased oxygen needs 05/04, lasix x 2 given with good effect. FB negative & Sats >92 % RA this candice. GI: painful hemorrhoids, prn oxycodone & tylenol, creams at bedside. Prn imodium for loose stool. CV: monitor for fevers with concerns for engraftment syndrome. Education needed: reinforcement of transplant expectations Other: ECHO completed 05/02 Barriers to discharge: Count recovery. andoff - Ilda Chavez RN - 05/04/2019 1:31 AM PSTNursing Handoff Patient Daily Goal: RN goals: alleviate pain, cluster care as able to promote rest btwn car e ([birth year]191955) Patient Specific Preferences: Ice water. (04/16/191954) [place] IP NURSE HANDOFF: [facility] events: Primary Diagnosis: MDS Transplant: Double Cord, Day +12 Chemo: FluCyTBI, Gamida trial PMH: Herpes Zoster Psych/Social: Stephenie is , and lives in [place] on her niece's property. Stephen[place] to [place] earlier this year [place] family when she learned she was ill. Her main family is a brother in the [place] and her sister's daughter in [place]. Her sister has dementia and lives nearby in assisted living. Good friend, Susan, will be caregiver. Advance Care Planning: Stephenie wants her niece to be her medical decision maker. She has AD paperwork and is working on it. Research study: Active Hospital Events: 04/17: Non neutropenic fever. Blood cx and chest xray done. Cefepime started. 04/18: TBI started, 4-da course 04/20: cefepime dc'd, levaquin started 04/22 transplant 04/25: 1.5 L stool on day shift. cdiff negative. Gi panel sent; results pending. 04/28: first temp spike, started on cefepime 05/01: subsequent temp, blood culture x1 SAFETY Patient/Family Target: Stephenie will remain safe and free from falls/injury. Progress to Target: No Change As evidenced by: Falls and mobility: safety/fall precautions reinforced. Steady sit/stand/gait noted when OOB. Increased SOB this AM, gave 20mg Lasix. Pt aware of limitations and utilizes call light appropriately. Bedside commode set up. Mental status changes: A&O x4. COMFORT/ANXIETY/BEHAVIOR Patient/Family Target: Stephenie will report her pain level as being controlled (<2/10) Progress to Target: No Change As evidenced by: Pain: Hemorrhoid pain with movement and BMs. Utilizing PRN Oxycodone/Dilaudid, gave 10mg this AM. K-pad, and PRN Imodium. Intermittent headache, PRN Tylenol effectuive. Has creams a vailable for ivone-rectal area performed independently by patient. Nausea: denies Bowel function: LBM 11/. Very painful BMs due to hemorroids. immodium given x 1 this AM Sleep: trying to sleep btwn care overnight Psych: Other: HYGIENE/INFECTION Patient/Family Target: Stephenie will remain free of s/sx of infection. Progress to Target: No Change As evidenced by: Skin: flushed, ecchymosis. S/s of infection: Subsequent temp 05/03. On Cefepime. -04/28 blood cultures positive for gram positive cocci. Bathing issues: shower 05/03 Central line issues: LUE Groshong c/d/i. As evidenced by: PO intake: Mental status: Activity level: Other: As evidenced by: Activity: Education: Discharge Planning: Other: NURSING ASSESSMENT & RECOMMENDATIONS FORWARD Nursing Assessment of Patient Stability Risk: Moderately unstable Recommendations Forward: Orders to follow up on: Labs still due: -Do not replace based on the post platelet count unless s/s of bleeding Replacements needed: plts complete, K-clor sched for 0900 - Check post platelets for the next 2 platelet transfusions. Anticipated or pending procedures: none Symptom management: Immodium, Oxycodone, Tylenol Education needed: reinforcement of transplant expectations Other: ECHO completed 05/02 Barriers to discharge: Count recovery. andoff - Magdalena Dao RN - 05/03/2019 5:50 PM PSTNursing Handoff Patient Daily Goal: RN goals: alleviate pain, cluster care as able to promote rest btwn car e ([birth year]191955) Patient Specific Preferences: Ice water. (04/16/191954) [facility] IP NURSE HANDOFF: [facility] events: Primary Diagnosis: MDS Transplant: Double Cord, Day +11 Chemo: FluCyTBI, Gamida trial PMH: Herpes Zoster Psych/Social: Stephenie is , and lives in [place] on her niece's property. Stephenie [place] to [place] earlier this year from [place] to be near family when she learned she was ill. Her main family is a brother in the [place] and her sister's daughter in [place]. Her sister has dementia and lives nearby in assisted living. Good friend, Susan, will be caregiver. Advance Care Planning: Stephenie wants her niece to be her medical decision maker. She has AD paperwork and is working on it. Research study: Active Hospital Events: 04/17: Non neutropenic fever. Blood cx and chest xray done. Cefepime started. 04/18: TBI started, 4-da course 04/20: cefepime dc'd, levaquin started 04/22 transplant 04/25: 1.5 L stool on day shift. cdiff negative. Gi panel sent; results pending. 04/28: first temp spike, started on cefepime 05/01: subsequent temp, blood culture x1 SAFETY Patient/Family Target: Stephenie will remain safe and free from falls/injury. Progress to Target: No Change As evidenced by: Falls and mobility: safety/fall precautions reinforced. Steady sit/stand/gait noted when OOB though she said she can be SOB at times. Pt aware of limitations and utilizes call light appropriately. Bedside commode set up. Mental status changes: A&O x4. COMFORT/ANXIETY/BEHAVIOR Patient/Family Target: Stephenie will report her pain level as being controlled (<2/10) Progress to Target: No Change As evidenced by: Pain: Hemorrhoid pain with movement and BMs. Utilizing PRN Oxycodone/Dilaudid, K-pad, an d PRN Imodium. Intermittent headache, PRN Tylenol. Has creams available for ivone-rectal area performed independently by patient. Nausea: denied. Bowel function: LBM 05/03. Very painful BMs due to hemorroids. immodium given x 1 05/02 NOC. Sleep: trying to sleep btwn care overnight Psych: Other: HYGIENE/INFECTION Patient/Family Target: Stephenie will remain free of s/sx of infection. Progress to Target: No Change As evidenced by: Skin: flushed, ecchymosis. S/s of infection: Subsequent temp 05/03. On Cefepime. -04/28 blood cultures positive for gram positive cocci. Bathing issues: shower 05/03 Central line issues: LUE Groshong c/d/i. NURSING ASSESSMENT & RECOMMENDATIONS FORWARD Nursing Assessment of Patient Stability Risk: Moderately unstable Recommendations Forward: Orders to follow up on: Labs still due: -Do not replace based on the post platelet count unless s/s of bleeding Replacements needed: (had fever spike at post plts, [place] andradeonreg make call to not do transfusion workup). - Check post platelets for the next 2 platelet transfusions. Anticipated or pending procedures: none Symptom management: Immodium, Oxycodone, Tylenol Education needed: reinforcement of transplant expectations Other: ECHO completed 05/02 Barriers to discharge: Count recovery. lan of Laxmi - Marla Wells RD - 05/03/2019 2:11 PM PST Problem: Nutrition Interventions Intervention: Food and nutrient distribution type or amount Note: Pt continues with minimal solid intake at this time. Is taking in adequate po fluids and d rinking 3+ Ensure Cl per day Nutrition Diagnosis: predicted inadequate oral intake r/t pretransplant regimen. Goal of Nutrition Care: promote adequate oral intake Continue with low bacteria diet Encourage PO as tolerated Treat symptoms PRN Following Marla Wells RD, GREASE RENDERER, LD Pager [phone] 53 year old female with MDS admit for Flu/TBI/Cy followed by double cord (on gamida trial- randomized to SOC) on 04/22/19 Low bacteria diet: 2300 ml (includes ensure cl) 5'2" 68.8 kg BMI: 27.6 Est needs: [id number] david (25-30 david/kg) 103-123 g pro (1.5-1.8 gpro/kg)Electronically jennifer d by Marla Wells RD at 05/03/2019 2:12 PM PSTHandoff - Alyson Hernandez RN - 05/03/2019 7:03 AM PSTNursing Handoff Patient Daily Goal: RN goals: alleviate pain, cluster care as able to promote rest btwn car e ([birth year]191955) Patient Specific Preferences: Ice water. (04/16/191954) [facility] IP NURSE HANDOFF: [facility] events: Primary Diagnosis: MDS Transplant: Double Cord, Day +11 Chemo: FluCyTBI, Gamida trial PMH: Herpes Zoster Psych/Social: Stephenie is , and lives in [place] on her niece's property. Stephenie [place] to [place] earlier this year from [place] to be near family when she learned she was ill. Her main family is a brother in [place] and her sister's daughter in [place]. Her sister has dementia and lives nearby in assisted living. Good friend, Susan, will be caregiver. Advance Care Planning: Stephenie wants her niece to be her medical decision maker. She has AD paperwork and is working on it. Research study: Active Hospital Events: 04/17: Non neutropenic fever. Blood cx and chest xray done. Cefepime started. 04/18: TBI started, 4-da course 04/20: cefepime dc'd, levaquin started 04/22 transplant 04/25: 1.5 L stool on day shift. cdiff negative. Gi panel sent; results pending. 04/28: first temp spike, started on cefepime 05/01: subsequent temp, blood culture x1 SAFETY Patient/Family Target: Stephenie will remain safe and free from falls/injury. Progress to Target: No Change As evidenced by: Falls and mobility: safety/fall precautions reinforced. Steady sit/stand/gait noted when OOB though she said she can be SOB at times. Pt aware of limitations and utilizes call light appropriately. Bedside commode set up. Mental status changes: A&O x4. COMFORT/ANXIETY/BEHAVIOR Patient/Family Target: Stephenie will report her pain level as being controlled (<2/10) Progress to Target: No Change As evidenced by: Pain: Hemorrhoid pain with movement and BMs. Utilizing PRN Oxycodone/Dilaudid, K-pad, an d PRN Imodium. Intermittent headache, PRN Tylenol. Has creams available for ivone-rectal area performed independently by patient. Nausea: denied. Bowel function: LBM 05/02. Very painful BMs due to hemorroids. immodium given x 1 05/02 NOC. Sleep: trying to sleep btwn care overnight Psych: Other: HYGIENE/INFECTION Patient/Family Target: Stephenie will remain free of s/sx of infection. Progress to Target: No Change As evidenced by: Skin: flushed, ecchymosis. S/s of infection: Subsequent temp 05/03. On Cefepime. -04/28 blood cultures positive for gram positive cocci. Bathing issues: shower 05/01 Central line issues: ZAHRAA Wardong c/d/i. NURSING ASSESSMENT & RECOMMENDATIONS FORWARD Nursing Assessment of Patient Stability Risk: Moderately unstable Recommendations Forward: Orders to follow up on: Labs still due: VRE -Do not replace based on the post platelet count unless s/s of bleeding Replacements needed: K infusing, Mg infusing, Plts completed (had fever spike at post plts, [place] Hanna moonreg make call to not do transfusion workup). - Check post platelets for the next 3 platelet transfusions. Anticipated or pending procedures: none Symptom management: Immodium, Oxycodone, Tylenol Education needed: reinforcement of transplant expectations Other: ECHO completed 05/02 Barriers to discharge: Count recovery. andoff - Magdalena Dao RN - 05/02/2019 1:54 PM PSTNursing Handoff Patient Daily Goal: RN goals: alleviate pain, cluster care as able to promote rest btwn car e ([birth year]191955) Patient Specific Preferences: Ice water. 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 Stephenie [place] to [place] earlier this year from [place] to be near family when she learned she was ill. [place] and her sister's daughter in [place]. Her sister has dementia and lives nearby in assisted living. Good friend, Susan, will be caregiver. Advance Care Planning: Stephenie wants her niece to be her medical decision maker. She has AD paperwork and is working on it. Research study: Active Hospital Events: 04/17: Non neutropenic fever. Blood cx and chest xray done. Cefepime started. 04/18: TBI started, 4-da course 04/20: cefepime dc'd, levaquin started 04/22 transplant 04/25: 1.5 L stool on day shift. cdiff negative. Gi panel sent; results pending. 04/28: first temp spike, started on cefepime 05/01: subsequent temp, blood culture x1 SAFETY Patient/Family Target: Stephenie will remain safe and free from falls/injury. Progress to Target: No Change As evidenced by: Falls and mobility: safety/fall precautions reinforced. Steady sit/stand/gait noted when OOB though she said she can be SOB at times. Pt aware of limitations and utilizes call light appropriately. Bedside commode set up. Mental status changes: A&O x4. COMFORT/ANXIETY/BEHAVIOR Patient/Family Target: Stephenie will report her pain level as being controlled (<2/10) Progress to Target: No Change As evidenced by: Pain: Hemorrhoid pain with movement and BMs. Utilizing PRN Oxycodone/Dilaudid, K-pad, an d PRN Imodium. Intermittent headache, PRN Tylenol. Has creams available for ivone-rectal area performed independently by patient. Nausea: denied. Bowel function: LBM 11/4. Very painful BMs due to hemorroids. Sleep: trying to sleep btwn care overnight Psych: Other: HYGIENE/INFECTION Patient/Family Target: Stephenie will remain free of s/sx of infection. Progress to Target: No Change As evidenced by: Skin: flushed, ecchymosis. S/s of infection: Subsequent temp 05/01. On Cefepime. -04/28 blood cultures positive for gram positive cocci. Bathing issues: shower 05/01 Central line issues: ZAHRAA Rios c/d/i. NURSING ASSESSMENT & RECOMMENDATIONS FORWARD Nursing Assessment of Patient Stability Risk: Moderately unstable Recommendations Forward: Orders to follow up on: Labs still due: VRE -Do not replace based on the post platelet count unless s/s of bleeding Replacements needed: 40meq klor con given during day shift. - Check post platelets for the next 3 platelet transfusions. Anticipated or pending procedures: none Symptom management: Immodium, Oxycodone, Tylenol Education needed: reinforcement of transplant expectations Other: ECHO completed 05/02 Barriers to discharge: Count recovery. andoff - Lisa Wilkse RN - 05/02/2019 6:33 AM PSTNursing Handoff Patient Daily Goal: RN goals: alleviate pain, cluster care as able to promote rest btwn car e ([birth year]/191954) Patient Specific Preferences: Ice water. 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 Stephenie [place] to [place] earlier this year from [place] to be near family when she learned she was ill. Her main family is a brother in [place] and her sister's daughter in [place]. Her sister has dementia and lives nearby in assisted living. Good friend, Susan, will be caregiver. Advance Care Planning: Stephenie wants her niece to be her medical decision maker. She has AD paperwork and is working on it. Research study: Active Hospital Events: 04/17: Non neutropenic fever. Blood cx and chest xray done. Cefepime started. 04/18: TBI started, 4-da course 10/23: cefepime dc'd, levaquin started 04/22 transplant 04/25: 1.5 L stool on day shift. cdiff negative. Gi panel sent; results pending. 04/28: first temp spike, started on cefepime 05/01: subsequent temp, blood culture x1 SAFETY Patient/Family Target: Stephenie will remain safe and free from falls/injury. Progress to Target: No Change As evidenced by: Falls and mobility: safety/fall precautions reinforced. Steady sit/stand/gait noted when OOB though she said she can be SOB at times. Pt aware of limitations and utilizes call light appropriately. Mental status changes: A&O x4. COMFORT/ANXIETY/BEHAVIOR Patient/Family Target: Stephenie will report her pain level as being controlled (<2/10) Progress to Target: No Change As evidenced by: Pain: Hemorrhoid pain with movement and BMs. Utilizing PRN Oxycodone/Dilaudid, K-pad, an d PRN Imodium. Intermittent headache, PRN Tylenol. Has creams available for ivone-rectal area performed independently by patient. Nausea: denied. Bowel function: LBM 05/02. Very painful BMs due to hemorroids. Sleep: trying to sleep btwn care overnight Psych: Other: HYGIENE/INFECTION Patient/Family Target: Stephenie will remain free of s/sx of infection. Progress to Target: No Change As evidenced by: Skin: flushed, ecchymosis. S/s of infection: Subsequent temp 05/01. On Cefepime. -04/28 blood cultures positive for gram positive cocci. Bathing issues: shower 05/01 Central line issues: ZAHRAA Perkinsshong c/d/i. NURSING ASSESSMENT & RECOMMENDATIONS FORWARD Nursing Assessment of Patient Stability Risk: Moderately unstable Recommendations Forward: Orders to follow up on: -monitor fluid status. May need more lasix. Labs still due: n/a Replacements needed: KCl (infusing - will need post K check once completed), platelets (inf using) Anticipated or pending procedures: none Symptom management: Immodium, Oxycodone, Tylenol Education needed: reinforcement of transplant expectations Other: ECHO ordered to be completed 05/02 Barriers to discharge: Count recovery. Valerio Klein RN - 05/01/2019 4:22 PM PSTNursing Handoff Patient Daily Goal: Pain control (05/01/19 0804) Patient Specific Preferences: Ice water. (04/16/191954) [facility] IP NURSE HANDOFF: [facility] events: Primary Diagnosis: MDS Transplant: Double Cord, Day +9 Chemo: FluCyTBI, Gamida trial PMH: Herpes Zoster Psych/Social: Stephenie is , and lives in [place] on her niece's property. Stephenie [place] to [place] earlier this year from [place] to be near family when she learned she was ill. Her main family is a brother [place] and her sister's daughter in [place]. Her sister has dementia and lives nearby in assisted living. Good friend, Susan, will be caregiver. Advance Care Planning: Stephenie wants her niece to be her medical decision maker. She has AD paperwork and is working on it. Research study: Active Hospital Events: 04/17: Non neutropenic fever. Blood cx and chest xray done. Cefepime started. 04/18: TBI started, 4-da course 04/20: cefepime dc'd, levaquin started 04/22 transplant 04/25: 1.5 L stool on day shift. cdiff negative. Gi panel sent; results pending. 04/28: first temp spike, started on cefepime SAFETY Patient/Family Target: Stephenie will remain safe and free from falls/injury. Progress to Target: No Change As evidenced by: Falls and mobility: safety/fall precautions reinforced. Steady sit/stand/gait noted when OOB though she said she can be SOB at times. Pt aware of limitations and utilizes call light appropriately. Mental status changes: A&O x4. COMFORT/ANXIETY/BEHAVIOR Patient/Family Target: Stephenie will report her pain level as being controlled (<2/10) Progress to Target: No Change As evidenced by: Pain: Hemorrhoid pain with movement and BMs. Diarrhea has increased today and so has Mirian gilman's pain. Given K-pad, Oxycodone 10mg x 2, as well as immodium. Tylenol x 1 for MCARTHUR. Has cre ams available for ivone-rectal area performed independently by patient. Nausea: denied. Bowel function: LBM 05/01. Very painful BMs due to hemorroids. Sleep: trying to sleep btwn care overnight, but unsuccessful. Was not able to rest during day due to stooling Psych: Other: HYGIENE/INFECTION Patient/Family Target: Stephenie will remain free of s/sx of infection. Progress to Target: No Change As evidenced by: Skin: flushed, ecchymosis. S/s of infection: Subsequent temp 04/30. On Cefepime. -04/28 blood cultures positive for gram positive cocci. Bathing issues: shower 05/01 Central line issues: LUE Groshong c/d/i. Positional, best return obtained laying flat and h ead turned to right during inspiration - no issues today NURSING ASSESSMENT & RECOMMENDATIONS FORWARD Nursing Assessment of Patient Stability Risk: Moderately unstable Recommendations Forward: Orders to follow up on: -monitor fluid status. May need more lasix. Labs still due: n/a Replacements needed: Anticipated or pending procedures: none Symptom management: Immodium, Oxycodone, Tylenol Education needed: reinforcement of transplant expectations Other: ECHO ordered to be completed 05/02 Barriers to discharge: Count recovery. andoff - Lisa Wilkes RN - 05/01/2019 6:03 AM PSTNursing Handoff Patient Daily Goal: RN goals: alleviate headache and hemorrhoid pain to allow for rest btwn care, safety/fall precautions. (04/30/191949) Patient Specific Preferences: Ice water. (04/16/191954) [facility] IP NURSE HANDOFF: [facility] events: Primary Diagnosis: MDS Transplant: Double Cord, Day +9 Chemo: FluCyTBI, Gamida trial PMH: Herpes Zoster Psych/Social: Stephenie is , and lives in [place] on her niece's property. Stephenie [place] to [place] earlier this year from [place] to be near family when she learned she was ill. [place] and her sister's daughter in [place]. Her sister has dementia and lives nearby in assisted living. Good friend, Susan, will be caregiver. Advance Care Planning: Stephenie wants her niece to be her medical decision maker. She has AD paperwork and is working on it. Research study: Active Hospital Events: 04/17: Non neutropenic fever. Blood cx and chest xray done. Cefepime started. 04/18: TBI started, 4-da course 04/20: cefepime dc'd, levaquin started 04/22 transplant 04/25: 1.5 L stool on day shift. cdiff negative. Gi panel sent; results pending. 04/28: first temp spike, started on cefepime SAFETY Patient/Family Target: Stephenie will remain safe and free from falls/injury. Progress to Target: No Change As evidenced by: Falls and mobility: safety/fall precautions reinforced. Steady sit/stand/gait noted when OOB though she said she can be SOB at times. Pt aware of limitations and utilizes call light appropriately. Mental status changes: A&O x4. COMFORT/ANXIETY/BEHAVIOR Patient/Family Target: Stephenie will report no pain. Progress to Target: No Change As evidenced by: Pain: Hemorrhoid pain with movement and BMs. Headache. PRN Tylenol given x1 overnight. Sc heduled topicals to ivone-rectal area performed independently by patient. Nausea: denied. Bowel function: LBM 04/30. Very painful BMs due to hemorroids. Sleep: trying to sleep btwn care overnight, but unsuccessful. Psych: Other: HYGIENE/INFECTION Patient/Family Target: Stephenie will remain free of s/sx of infection. Progress to Target: No Change As evidenced by: Skin: flushed, ecchymosis. S/s of infection: Subsequent temp 04/30. On Cefepime. -04/28 blood cultures positive for gram positive cocci. Bathing issues: shower 04/30 Central line issues: LUE Groshong c/d/i. Positional, best return obtained laying flat and h ead turned to right during inspiration - no issues over night. NURSING ASSESSMENT & RECOMMENDATIONS FORWARD Nursing Assessment of Patient Stability Risk: Moderately unstable Recommendations Forward: Orders to follow up on: -monitor fluid status. May need more lasix. Labs still due: n/a Replacements needed: platelets (completed), KCl (KDur with breakfast), Mg sulfate (infusing , should complete around 0830) Anticipated or pending procedures: none Symptom management: Education needed: reinforcement of transplant expectations Other: Barriers to discharge: Count recovery. andoff - Meghna Nolan RN - 04/30/2019 5:02 PM PDTNursing Handoff Patient Daily Goal: RN advocacy: have MCARTHUR/hemorrhoid pain controlled (04/30/19 1602) Patient Specific Preferences: Ice water. (04/16/191954) [facility] IP NURSE HANDOFF: [facility] events: Primary Diagnosis: MDS Transplant: Double Cord, Day +8 Chemo: FluCyTBI, Gamida trial PMH: Herpes Zoster Psych/Social: Stephenie is , and lives in [place] on her niece's property. Stephenie [place] to [place] earlier this year [place] be near family when she learned she was ill. Her main family is a brother in the [place] and her sister's daughter in [place]. Her sister has dementia and lives nearby in assisted living. Good friend, Susan, will be caregiver. Advance Care Planning: Stephenie wants her niece to be her medical decision maker. She has AD paperwork and is working on it. Research study: Active Hospital Events: 04/17: Non neutropenic fever. Blood cx and chest xray done. Cefepime started. 04/18: TBI started, 4-da course 04/20: cefepime dc'd, levaquin started 04/22 transplant 04/25: 1.5 L stool on day shift. cdiff negative. Gi panel sent; results pending. 04/28: first temp spike, started on cefepime SAFETY Patient/Family Target: Stephenie will remain safe and free from falls. Stephenie jennifer not have further nose bleed Stephenie will maintain O2 above 92%. Progress to Target: No Change As evidenced by: Falls and mobility: safety/fall precautions reinforced. Steady sit/stand/gait noted when OOB though she said she can be SOB at times. Pt aware of limitations and utilizes call light appropriately. Mental status changes: A&O x4. Nose bleed yesterday. PRN Afrin ordered. Requiring 1L O2 overnight. Crackles noted. 40mg IV lasix given this AM with great respons e and pt able to ween from O2. This afternoon pt with SOB again 20mg IV lasix given with red uction in SOB. COMFORT/ANXIETY/BEHAVIOR Patient/Family Target: Stephenie will report no pain. Progress to Target: Improving As evidenced by: Pain: Perirectal pain due to hemorrhoid (see bowel function notes). Occas MCARTHUR. 10mg oxycod one effective but declining today. Received tylenol with fevers and that did reduce her MCARTHUR p ain. NDX cream, hydrocortisone cream, and Sitz bath available but minimally effective. Mild mucositis. SMW minimally effective. Declining @ this time. Nausea: Reports nausea associated with having a BM and also with position changes. Zofran n ow scheduled. 5mg po compazine effective for breakthrough. Bowel function: LBM 04/30. Hemorrhoid/perirectal burning- NDX & nifedipine in bathroom. Oxyc odone 10-15mg q4 moderately effective. Maternal ice packs from L&D effective for relief. Emily er bottle was given to try and flush bottom instead of wiping. HYGIENE/INFECTION Patient/Family Target: Stephenie will remain free of s/sx of infection. Progress to Target: No Change As evidenced by: Skin: int flushed, yosef face. S/s of infection: Subsequent temp today 38. Peripheral cx drawn 04/30 @ 1235. On cefepime. 04/28 blood cultures positive for gram positive cocci. Two sets of peripheral cultures draw n 04/29. Bathing issues: shower 04/30 Central line issues: LUE Groshong c/d/i. Positional, best return obtained laying flat and h ead turned to right during inspiration. Gagan changed 04/29 NURSING ASSESSMENT & RECOMMENDATIONS FORWARD Nursing Assessment of Patient Stability Risk: Moderately unstable Recommendations Forward: Orders to follow up on: - Alternating maternity ice packs from L&D or ice packs from [employer] and donut. Oxy also availa ble prn -monitor fluid status. May need more lasix with AM blood products Labs still due: Replacements needed: Additional 1u pRBC given today for low hct. Anticipated or pending procedures: none Symptom management: Education needed: reinforcement of transplant expectations Other: Barriers to discharge: Count recovery. andoff - Day, CARRIE Morrell - 04/30/2019 2:19 AM PDTNursing Handoff Patient Daily Goal: Stephenie wants her hemorrhoid pain better managed (04/30/19 0014) Patient Specific Preferences: Ice water. (04/16/191954) [facility] IP NURSE HANDOFF: [facility] events: Primary Diagnosis: MDS Transplant: Double Cord, Day +7 Chemo: FluCyTBI, Gamida trial PMH: Herpes Zoster Psych/Social: Stephenie is , and lives in [place] on her niece's property. Stephenie [place] to [place] earlier this year [place] be near family when she learned she was ill. Her main family is a brother in the [place] and her sister's daughter in [place]. Her sister has dementia and lives nearby in assisted living. Good friend, Susan, will be caregiver. Advance Care Planning: Stephenie wants her niece to be her medical decision maker. She has AD paperwork and is working on it. Research study: Active Hospital Events: 04/17: Non neutropenic fever. Blood cx and chest xray done. Cefepime started. 04/18: TBI started, 4-da course 04/20: cefepime dc'd, levaquin started 04/22 transplant 04/25: 1.5 L stool on day shift. cdiff negative. Gi panel sent; results pending. 04/28: first temp spike, started on cefepime SAFETY Patient/Family Target: Stephenie will remain safe and free from falls. Stephenie jennifer not have further nose bleed Stephenie will maintain O2 above 92%. Progress to Target: No Change As evidenced by: Falls and mobility: safety/fall precautions reinforced. Steady sit/stand/gait noted when OOB though she said she can be SOB at times. Denied SOB at this time though crackles noticed on right posterior lower lobes when she reported feeling crackles in her lungs. Asked why s he is not taking IV Lasix. Educated her that MD will order IV Lasix based on clinical sympto ms. Informed MD overnight. VSS. Pt aware of limitations and utilizes call light appropriate ly. Mental status changes: A&O x4. Nose bleed during day shift but stopped. PRN Afrin ordered. Encouraged not to blow nose. Pl atelet is low. She received 1 unit prior to MN and will be needing 1 unit this morning. Crit is low as well. Encourage to call if symptomatic. O2 sating 90 % when laying flat and she appeared to use accessory muscle more when laying f lat in bed. Saturation in the mid to high 90s when she is sitting up before 4 AM now she is sating at 86 to 88% on RA HOB 30 degree. Needing 1 L O2 to maintain O2 > 90%. BLL crackles. Suspected fluid overload. Co "I cannot breathe" at 0515, recommended HOB and will push for M D to see if she needs Lasix. Last Lasix given 04/28? paged. COMFORT/ANXIETY/BEHAVIOR Patient/Family Target: Stephenie will report no pain. Progress to Target: No Change As evidenced by: Pain: Perirectal pain due to hemorrhoid (see bowel function notes). Occas MCARTHUR. 10mg oxycod one effective but declining it at 0400. IV dilaudid available prn, also effective. NDX cream , nifedipine cream, and Sitz bath available but did not help. MD order proctozone cream fo r external use only, do not use internally due to neutropenic status. Starting to feel some esophagitis starting, magic mouthwash helpful. Nausea: Reports nausea associated with having a BM and also with position changes. Stted di arrhea is getting better. Zofran now scheduled. 5mg po compazine effective for breakthrough. Bowel function: LBM 04/29. Hemorrhoid/perirectal burning- NDX & nifedipine in bathroom. Oxyc odone 10-15mg q4 moderately effective. Maternal ice packs from L&D effective for relief. Sit z bath attempted, but water was too warm and too painful. Water bottle was given to try and flush bottom instead of wiping. HYGIENE/INFECTION Patient/Family Target: Stephenie will remain free of s/sx of infection. Progress to Target: No Change As evidenced by: Skin: int flushed, yosef face. S/s of infection: First neutropenic temp spike 04/28 around 1900. On cefepime. 04/28 blood cultures positive for gram positive cocci, Two sets of peripheral cultures draw n 04/29. Bathing issues: shower 04/29 Central line issues: ZAHRAA Rios c/d/i. Positional, best return obtained laying flat and h ead turned to right during inspiration. Drsg changed 04/29 NURSING ASSESSMENT & RECOMMENDATIONS FORWARD Nursing Assessment of Patient Stability Risk: Moderately unstable Recommendations Forward: Orders to follow up on: - Alternating maternity ice packs from L&D or ice packs from [employer] and donut. Oxy also availa ble prn -Due for blood cultures with next temp spike -plts given this evening 04/29 for nose bleed, 1 unit given again at 4 AM. Labs still due: Replacements needed: Still need 1 unit of blood.Sudden desat on RA, suspected fluid jenise romero MD paged. May run before shift change if breathing status is stable. Anticipated or pendi ng procedures: none Symptom management: Education needed: reinforcement of transplant expectations Other: Barriers to discharge: Count recovery. andoff - Ashley Fontanez RN - 04/29/2019 7:17 PM PDTNursing Handoff Patient Daily Goal: RN goals: chemotherapy administration, cluster care as able to promote rest. (04/17/192014) Patient Specific Preferences: Ice water. (04/16/191954) [facility] IP NURSE HANDOFF: [facility] events: Primary Diagnosis: MDS Transplant: Double Cord, Day +7 Chemo: FluCyTBI, Gamida trial PMH: Herpes Zoster Psych/Social: Stephenie is , and lives in [place] on her niece's property. Stephenie [place] to [place] earlier this year [place] to be near family when she learned she was ill. Her main family is a brother in the [place] and her sister's daughter in [place]. Her sister has dementia and lives nearby in assisted living. Good friend, Susan, will be caregiver. Advance Care Planning: Stephenie wants her niece to be her medical decision maker. She has AD paperwork and is working on it. Research study: Active Hospital Events: 04/17: Non neutropenic fever. Blood cx and chest xray done. Cefepime started. 04/18: TBI started, 4-da course 04/20: cefepime dc'd, levaquin started 04/22 transplant 04/25: 1.5 L stool on day shift. cdiff negative. Gi panel sent; results pending. 04/28: first temp spike, started on cefepime SAFETY Patient/Family Target: Stephenie will remain safe and free from falls. Progress to Target: No Change As evidenced by: Falls and mobility: safety/fall precautions reinforced. Steady sit/stand/gait noted. Pt a ford of limitations and utilizes call light appropriately. Mental status changes: A&O x4. COMFORT/ANXIETY/BEHAVIOR Patient/Family Target: Stephenie will report no pain. Progress to Target: No Change As evidenced by: Pain: Perirectal pain (see bowel function notes). Occas MCARTHUR. 10mg oxycodone effective. IV dilaudid available prn, also effective, Sitz bath available. Starting to feel some esophagitis starting, magic mouthwash helpful. Nausea: Reports nausea associated with having a BM and also with position changes. Zofran n ow scheduled. 5mg po compazine effective for breakthrough. Bowel function: LBM 04/29. Hemorrhoid/perirectal burning- NDX & nifedipine in bathroom. Oxyc odone 10-15mg q4 moderately effective. Maternal ice packs from L&D effective for relief. Sit z bath attempted, but water was too warm. Water bottle was given to try and flush bottom ins tead of wiping. HYGIENE/INFECTION Patient/Family Target: Stephenie will remain free of s/sx of infection. Progress to Target: No Change As evidenced by: Skin: int flushed, yosef face. S/s of infection: First neutropenic temp spike 04/28 around 1900. On cefepime. 04/28 blood cultures positive for gram positive cocci, Two sets of peripheral cultures draw n 04/29. Bathing issues: shower 04/29 Central line issues: LUE Maddieshong c/d/i. Positional, best return obtained laying flat and h ead turned to right during inspiration. Gagan changed 04/29 NURSING ASSESSMENT & RECOMMENDATIONS FORWARD Nursing Assessment of Patient Stability Risk: Moderately unstable Recommendations Forward: Orders to follow up on: - Alternating maternity ice packs from L&D or ice packs from [employer] and donut. Oxy also availa ble prn -Due for blood cultures with next temp spike -plts given this evening for nose bleed Labs still due: Replacements needed: Anticipated or pending procedures: none Symptom management: Education needed: reinforcement of transplant expectations Other: Barriers to discharge: Count recovery. andoff - Kiya Kathryn woo RN - 04/29/2019 6:25 AM PDTNursing Handoff Patient Daily Goal: RN goals: chemotherapy administration, cluster care as able to promote rest. (04/17/192014) Patient Specific Preferences: Ice water. (04/16/191954) [facility] IP NURSE HANDOFF: [facility] events: Primary Diagnosis: MDS Transplant: Double Cord, Day +7 Chemo: FluCyTBI, Gamida trial PMH: Herpes Zoster Psych/Social: Stephenie is , and lives in [place] on her niece's property. Stephenie [place] to [place] earlier this year from [place] to be near family when she learned she was ill. Her main family is a brother in the [place] and her sister's daughter in [place]. Her sister has dementia and lives nearby in assisted living. Good friend, Susan, will be caregiver. Advance Care Planning: Stephenie wants her niece to be her medical decision maker. She has AD paperwork and is working on it. Research study: Active Hospital Events: 04/17: Non neutropenic fever. Blood cx and chest xray done. Cefepime started. 04/18: TBI started, 4-da course 04/20: cefepime dc'd, levaquin started 04/22 transplant 04/25: 1.5 L stool on day shift. cdiff negative. Gi panel sent; results pending. 04/26: told to eat a bland diet SAFETY Patient/Family Target: Stephenie will remain safe and free from falls. Progress to Target: No Change As evidenced by: Falls and mobility: safety/fall precautions reinforced. Steady sit/stand/gait noted. Pt a ford of limitations and utilizes call light appropriately. Mental status changes: A&O x4. Other: COMFORT/ANXIETY/BEHAVIOR Patient/Family Target: Stephenie will report no pain. Progress to Target: Deteriorating As evidenced by: Pain: Perirectal pain (see bowel function notes). Occas MCARTHUR. 10mg oxycodone effective. IV dilaudid available prn, also effective, none given this shift. Sitz bath available. Starting to feel some esophagitis starting, magic mouthwash helpful. Nausea: Reports nausea associated with having a BM and also with position changes. Zofran n ow scheduled. 5mg po compazine effective for breakthrough. Bowel function: LBM 04/29. Hemorrhoid/perirectal burning- NDX & nifedipine in bathroom. Oxyc odone 10-15mg q4 moderately effective. . Maternal ice packs from L&D effective for relief. S omid bath attempted, but water was too warm. Water bottle was given to try and flush bottom i nstead of wiping. Sleep: Psych: pleasant Other: HYGIENE/INFECTION Patient/Family Target: Stephenie will remain free of s/sx of infection. Progress to Target: Deteriorating As evidenced by: Skin: int flushed, yosef face. Two small white spots to mid-lower chest, intact, no itching , monitoring. S/s of infection: First neutropenic temp spike 04/28 around 1900. On cefepime. 04/28 blood cultures positive for gram positive cocci fom bother peripheral and central tre e. Two sets of peripheral cultures drawn 04/29. Bathing issues: shower 05/09 Central line issues: LUE Groshong c/d/i. Positional, best return obtained laying flat and h ead turned to right during inspiration. Drsg changed 04/19 early after getting wet in shower , biopatch laid over catheter, unable to underlay d/t tight sutures. Other: NURSING ASSESSMENT & RECOMMENDATIONS FORWARD Nursing Assessment of Patient Stability Risk: Moderately unstable Recommendations Forward: Orders to follow up on: - Alternating maternity ice packs from L&D or ice packs from [employer] and donut. Oxy also availa ble prn Labs still due: Replacements needed: mag & plts completed overnight, kdurr scheduled Anticipated or pending procedures: none Symptom management: Education needed: reinforcement of transplant expectations Other: Barriers to discharge: Count recovery. andoff - Dione De Anda RN - 04/28/2019 7:06 PM PDTNursing Handoff Patient Daily Goal: RN goals: chemotherapy administration, cluster care as able to promote rest. (04/17/192014) Patient Specific Preferences: Ice water. (04/16/191954) [facility] IP NURSE HANDOFF: [facility] events: Primary Diagnosis: MDS Transplant: Double Cord, Day +6 Chemo: FluCyTBI, Gamida trial PMH: Herpes Zoster Psych/Social: Stephenie is , and lives in [place] on her niece's property. Stephenie [place] to [place] earlier this year from [place] to be near family when she learned she was ill. [place] and her sister's daughter in [place]. Her sister has dementia and lives nearby in assisted living. Good friend, Susan, will be caregiver. Advance Care Planning: Stephenie wants her niece to be her medical decision maker. She has AD paperwork and is working on it. Research study: Active Hospital Events: 04/17: Non neutropenic fever. Blood cx and chest xray done. Cefepime started. 04/18: TBI started, 4-da course 04/20: cefepime dc'd, levaquin started 04/22 transplant 04/25: 1.5 L stool on day shift. cdiff negative. Gi panel sent; results pending. 04/26: told to eat a bland diet SAFETY Patient/Family Target: Stephenie will remain safe and free from falls. Progress to Target: No Change As evidenced by: Falls and mobility: safety/fall precautions reinforced. Steady sit/stand/gait noted. Pt a ford of limitations and utilizes call light appropriately. Mental status changes: A&O x4. Other: COMFORT/ANXIETY/BEHAVIOR Patient/Family Target: Stephenie will report no pain. Progress to Target: Deteriorating As evidenced by: Pain: Perirectal pain (see bowel function notes). Occas MCARTHUR. 10mg oxycodone effective. IV dilaudid given x1, also effective. Sitz bath available. Nausea: Reports nausea associated with having a BM and also with position changes. Zofran n ow scheduled. 5mg po compazine effective for breakthrough. Bowel function: LBM 04/27. Hemorrhoid/perirectal burning- NDX & nifedipine in bathroom. Oxy codone 15mg q4 moderately effective. . Maternal ice packs from L&D effective for relief. Sit z bath attempted, but water was too warm. Water bottle was given to try and flush bottom ins tead of wiping. Sleep: Psych: pleasant Other: HYGIENE/INFECTION Patient/Family Target: Stephenie will remain free of s/sx of infection. Progress to Target: Deteriorating As evidenced by: Skin: int flushed, yosef face. Two small white spots to mid-lower chest, intact, no itching , monitoring. S/s of infection: First neutropenic temp spike 04/28. On cefepime. Bathing issues: shower 04/28 Central line issues: LUE Groshong c/d/i. Positional, best return obtained laying flat and h ead turned to right during inspiration. Drsg changed 04/19 early after getting wet in shower , biopatch laid over catheter, unable to underlay d/t tight sutures. Other: NURSING ASSESSMENT & RECOMMENDATIONS FORWARD Nursing Assessment of Patient Stability Risk: Moderately unstable Recommendations Forward: Orders to follow up on: - Alternating maternity ice packs from L&D or ice packs from [employer] and donut. Oxy also availa ble prn -ecchymotic possible rash developing neck and shoulders. Unsure if it's from massage oil. C ontinue to monitor Labs still due: Posa level 04/28 prior to am dose Replacements needed: mag & plts infusing, kdurr scheduled Anticipated or pending procedures: none Symptom management: Education needed: reinforcement of transplant expectations Other: Barriers to discharge: Count recovery. lan of Care - Yu Wells RD - 04/28/2019 10:14 AM PDT Problem: Nutrition Interventions Intervention: Food and nutrient distribution type or amount Note: Pt with decreased intake at this time d/t decreased appetite and increased stool output. F luid intake adequate with 1 shake Nutrition Diagnosis: predicted inadequate oral intake r/t pretransplant regimen. Goal of Nutrition Care: promote adequate oral intake Continue with low bacteria diet Encourage PO as tolerated Treat symptoms PRN Following Marla Wells RD, GREASE RENDERER, LD Pager [phone] 53 year old female with MDS admit for Flu/TBI/Cy followed by double cord (on gamida trial - randomized to SOC) on 04/22/19 Low bacteria diet: toast/cream of rice with 1930 ml (includes shakes) 5'2" 68.8 kg BMI: 27.6 Est needs: [id number] david (25-30 david/kg) 103-123 g pro (1.5-1.8 gpro/kg)Electronically jennifer d by Marla Wells RD at 04/28/2019 10:15 AM PDTHandoff - Afia Wilson, RN - 04/28/2019 6: 42 AM PDTNursing Handoff Patient Daily Goal: RN goals: chemotherapy administration, cluster care as able to promote rest. (04/17/192014) Patient Specific Preferences: Ice water. (04/16/191954) [facility] IP NURSE HANDOFF: [facility] events: Primary Diagnosis: MDS Transplant: Double Cord, Day +6 Chemo: FluCyTBI, Gamida trial PMH: Herpes Zoster Psych/Social: Stephenie is , and lives in [place] on her niece's property. Stephenie [place] to [place] earlier this year from [place] to be near family when she learned she was ill. Her main family is a brother in the [place] and her sister's daughter in [place]. Her sister has dementia and lives nearby in assisted living. Good friend, Susan, will be caregiver. Advance Care Planning: Stephenie wants her niece to be her medical decision maker. She has AD paperwork and is working on it. Research study: Active Hospital Events: 04/17: Non neutropenic fever. Blood cx and chest xray done. Cefepime started. 04/18: TBI started, 4-da course 04/20: cefepime dc'd, levaquin started 04/22 transplant 04/25: 1.5 L stool on day shift. cdiff negative. Gi panel sent; results pending. 04/26: told to eat a bland diet SAFETY Patient/Family Target: Stephenie will remain safe and free from falls. Progress to Target: No Change As evidenced by: Falls and mobility: safety/fall precautions reinforced. Steady sit/stand/gait noted. Pt a ford of limitations and utilizes call light appropriately. Mental status changes: A&O x4. Other: COMFORT/ANXIETY/BEHAVIOR Patient/Family Target: Stephenie will report no pain. Progress to Target: Deteriorating As evidenced by: Pain: Perirectal pain (see bowel function notes). Occas MCARTHUR, tylenol effective. Sitz bath setup. Nausea: Reports nausea associated with having a BM and also with position changes. Zofran n ow scheduled. 5mg po compazine effective for breakthrough. Bowel function: LBM 04/27. Hemorrhoid/perirectal burning- NDX & nifedipine in bathroom. Oxy codone 15mg q4 moderately effective. . Maternal ice packs from L&D effective for relief. Sit z bath attempted, but water was too warm. Water bottle was given to try and flush bottom ins tead of wiping. Sleep: Psych: pleasant Other: HYGIENE/INFECTION Patient/Family Target: Stephenie will remain free of s/sx of infection. Progress to Target: Improving As evidenced by: Skin: int flushed, yosef face. Two small white spots to mid-lower chest, intact, no itching , monitoring. S/s of infection: First temp spike (non-neutropenic) 04/17. Cefepime started, blood cx and chest xray done. SOB intermittently - chest xray showed small pleural effusions and atelecta sis, incentive spirometer provided with education. No issues this shift, afebrile. Abx de-es calated to Levaquin 04/20. Bathing issues: shower 04/27 Central line issues: LEOBARDOE Edong c/d/i. Positional, best return obtained laying flat and h ead turned to right during inspiration. Drsg changed 04/19 early after getting wet in shower , biopatch laid over catheter, unable to underlay d/t tight sutures. Other: NURSING ASSESSMENT & RECOMMENDATIONS FORWARD Nursing Assessment of Patient Stability Risk: Moderately unstable Recommendations Forward: Orders to follow up on: - Alternating maternity ice packs from L&D or ice packs from [employer] and donut. Oxy also availa ble prn -ecchymotic possible rash developing neck and shoulders. Unsure if it's from massage oil. C ontinue to monitor Labs still due: Posa level 04/28 prior to am dose Replacements needed: mag & plts infusing, kdurr scheduled Anticipated or pending procedures: none Symptom management: Education needed: reinforcement of transplant expectations Other: Barriers to discharge: Count recovery. andoff - Yakelin Jacinta Patterson N - 04/27/2019 6:44 PM PDTNursing Handoff Patient Daily Goal: RN goals: chemotherapy administration, cluster care as able to promote rest. (04/17/192014) Patient Specific Preferences: Ice water. (04/16/191954) [facility] IP NURSE HANDOFF: [facility] events: Primary Diagnosis: MDS Transplant: Double Cord, Day +5 Chemo: FluCyTBI, Gamida trial PMH: Herpes Zoster Psych/Social: Stephenie is , and lives in [place] on her niece's property. Stephenie m shante to [place] earlier this year from [place] to be near family when she learned she was ill. Her main family is a brother in the [place] and her sister's daughter in [place]. Her sister has dementia and lives nearby in assisted living. Good friend, Susan, will be caregiver. Advance Care Planning: Stephenie wants her niece to be her medical decision maker. She has AD paperwork and is working on it. Research study: Active Hospital Events: 04/17: Non neutropenic fever. Blood cx and chest xray done. Cefepime started. 04/18: TBI started, 4-da course 04/20: cefepime dc'd, levaquin started 04/22 transplant 04/25: 1.5 L stool on day shift. cdiff negative. Gi panel sent; results pending. 04/26: told to eat a bland diet SAFETY Patient/Family Target: Stephenie will remain safe and free from falls. Progress to Target: No Change As evidenced by: Falls and mobility: safety/fall precautions reinforced. Steady sit/stand/gait noted. Pt a ford of limitations and utilizes call light appropriately. Mental status changes: A&O x4. Other: COMFORT/ANXIETY/BEHAVIOR Patient/Family Target: Stephenie will report no pain. Progress to Target: Deteriorating As evidenced by: Pain: Perirectal pain. Occas MCARTHUR, tylenol effective. Sitz bath setup. Nausea: Reports nausea associated with having a BM and also with position changes. Zofran n ow scheduled. 5mg po compazine effective for breakthrough. Bowel function: LBM 04/27. Hemorrhoid/perirectal burning- NDX & proctozone in bathroom. Oxy codone. Maternal ice packs from L&D effective for relief. Sitz bath attempted, but water was too warm. Water bottle was given to try and flush bottom instead of wiping. Sleep: Psych: pleasant Other: HYGIENE/INFECTION Patient/Family Target: Stephenie will remain free of s/sx of infection. Progress to Target: Improving As evidenced by: Skin: int flushed, yosef face. Two small white spots to mid-lower chest, intact, no itching , monitoring. S/s of infection: First temp spike (non-neutropenic) 04/17. Cefepime started, blood cx and chest xray done. SOB intermittently - chest xray showed small pleural effusions and atelecta sis, incentive spirometer provided with education. No issues this shift, afebrile. Abx de-es calated to Levaquin 04/20. Bathing issues: shower 04/27 - will shower today per pt Central line issues: ZAHRAA Wardong c/d/i. Positional, best return obtained laying flat and h ead turned to right during inspiration. Drsg changed 04/19 early after getting wet in shower , biopatch laid over catheter, unable to underlay d/t tight sutures. Other: NURSING ASSESSMENT & RECOMMENDATIONS FORWARD Nursing Assessment of Patient Stability Risk: Moderately stable Recommendations Forward: Orders to follow up on: - Alternating maternity ice packs from L&D or ice packs from [employer] and donut. Oxy also availa ble -ecchymotic possible rash developing neck and shoulders. Unsure if it's from massage oil. C ontinue to monitor Labs still due: Posa level 04/28 prior to am dose Replacements needed: Anticipated or pending procedures: none Symptom management: Education needed: reinforcement of transplant expectations Other: Barriers to discharge: Count recovery. andoff - Carly Montez RN - 04/26/2019 8:44 PM PDTNursing Handoff Patient Daily Goal: RN goals: chemotherapy administration, cluster care as able to promote rest. (04/17/192014) Patient Specific Preferences: Ice water. (04/16/191954) [facility] IP NURSE HANDOFF: [facility] events: Primary Diagnosis: MDS Transplant: Double Cord, Day +5 Chemo: FluCyTBI, Gamida trial PMH: Herpes Zoster Psych/Social: Stephenie is , and lives in [place] on her niece's property. Stephenie leigh shante to [place] earlier this year from [place] to be near family when she learned she was ill. [place] and her sister's daughter in [place]. Her sister has dementia and lives nearby in assisted living. Good friend, Susan, will be caregiver. Advance Care Planning: Stephenie wants her niece to be her medical decision maker. She has AD paperwork and is working on it. Research study: Active Hospital Events: 04/17: Non neutropenic fever. Blood cx and chest xray done. Cefepime started. 04/18: TBI started, 4-da course 04/20: cefepime dc'd, levaquin started 04/22 transplant 04/25: 1.5 L stool on day shift. cdiff negative. Gi panel sent; results pending. 04/26: told to eat a bland diet SAFETY Patient/Family Target: Stephenie will remain safe and free from falls. Progress to Target: No Change As evidenced by: Falls and mobility: safety/fall precautions reinforced. Steady sit/stand/gait noted. Pt a ford of limitations and utilizes call light appropriately. Mental status changes: A&O x4. Other: COMFORT/ANXIETY/BEHAVIOR Patient/Family Target: Stephenie will report no pain. Progress to Target: Deteriorating As evidenced by: Pain: Perirectal pain. Occas MCARTHUR, tylenol effective. Sitz bath setup. Nausea: Reports nausea associated with having a BM and also with position changes. Zofran n ow scheduled. 5mg po compazine effective for breakthrough. Bowel function: LBM 04/26. Hemorrhoid/perirectal burning- NDX & proctozone in bathroom. Oxy codone. Maternal ice packs from L&D effective for relief. Sitz bath attempted, but water was too warm. Water bottle was given to try and flush bottom instead of wiping. Sleep: Psych: pleasant Other: HYGIENE/INFECTION Patient/Family Target: Stephenie will remain free of s/sx of infection. Progress to Target: Improving As evidenced by: Skin: int flushed, yosef face. Two small white spots to mid-lower chest, intact, no itching , monitoring. S/s of infection: First temp spike (non-neutropenic) 04/17. Cefepime started, blood cx and chest xray done. SOB intermittently - chest xray showed small pleural effusions and atelecta sis, incentive spirometer provided with education. No issues this shift, afebrile. Abx de-es calated to Levaquin 04/20. Bathing issues: shower 04/23 - will shower today per pt Central line issues: ZAHRAA Rios c/d/i. Positional, best return obtained laying flat and h ead turned to right during inspiration. Drsg changed 04/19 early after getting wet in shower , biopatch laid over catheter, unable to underlay d/t tight sutures. Other: NURSING ASSESSMENT & RECOMMENDATIONS FORWARD Nursing Assessment of Patient Stability Risk: Moderately stable Recommendations Forward: Orders to follow up on: - watch for results of gi panel - Alternating maternity ice packs from L&D or ice packs from [employer] and donut. Oxy also availa ble -ecchymotic possible rash developing neck and shoulders. Unsure if it's from massage oil. C ontinue to monitor Labs still due: Posa level 04/28 prior to am dose Replacements needed: Mg, PLT, K (K-DUR scheduled for 0800) Anticipated or pending procedures: none Symptom management: Education needed: reinforcement of transplant expectations Other: Barriers to discharge: Count recovery. andoff - Yesenia Hamlin RN - 04/26/2019 11:11 AM PDTNursing Handoff Patient Daily Goal: RN goals: chemotherapy administration, cluster care as able to promote rest. (04/17/192014) Patient Specific Preferences: Ice water. (04/16/191954) [facility] IP NURSE HANDOFF: [facility] events: Primary Diagnosis: MDS Transplant: Double Cord, Day +4 Chemo: FluCyTBI, Gamida trial PMH: Herpes Zoster Psych/Social: Stephenie is , and lives in [place] on her niece's property. Stephenie le[place] to [place] earlier this year from [place] to be near family when she learned she was ill. Her main family is a brother in [place] and her sister's daughter in [place]. Her sister has dementia and lives nearby in assisted living. Good friend, Susan, will be caregiver. Advance Care Planning: Stephenie wants her niece to be her medical decision maker. She has AD paperwork and is working on it. Research study: Active Hospital Events: 04/17: Non neutropenic fever. Blood cx and chest xray done. Cefepime started. 04/18: TBI started, 4-da course 04/20: cefepime dc'd, levaquin started 04/22 transplant 04/25: 1.5 L stool on day shift. cdiff negative. Gi panel sent; results pending. 04/26: told to eat a bland diet SAFETY Patient/Family Target: Stephenie will remain safe and free from falls. Progress to Target: No Change As evidenced by: Falls and mobility: safety/fall precautions reinforced. Steady sit/stand/gait noted. Pt a ford of limitations and utilizes call light appropriately. Mental status changes: A&O x4. Other: COMFORT/ANXIETY/BEHAVIOR Patient/Family Target: Stephenie will report no pain. Progress to Target: Deteriorating As evidenced by: Pain: Perirectal pain. Occas MCARTHUR, tylenol effective. Sitz bath setup. Nausea: Reports nausea associated with having a BM and also with position changes. Zofran n ow scheduled. 5mg po compazine effective for breakthrough. Bowel function: LBM 04/26. Hemorrhoid/perirectal burning- NDX & proctozone in bathroom. Oxy codone. Maternal ice packs from L&D effective for relief. Sitz bath attempted, but water was too warm. Water bottle was given to try and flush bottom instead of wiping. Sleep: Psych: pleasant Other: HYGIENE/INFECTION Patient/Family Target: Stephenie will remain free of s/sx of infection. Progress to Target: Improving As evidenced by: Skin: int flushed, yosef face. Two small white spots to mid-lower chest, intact, no itching , monitoring. S/s of infection: First temp spike (non-neutropenic) 04/17. Cefepime started, blood cx and chest xray done. SOB intermittently - chest xray showed small pleural effusions and atelecta sis, incentive spirometer provided with education. No issues this shift, afebrile. Abx de-es calated to Levaquin 04/20. Bathing issues: shower 04/23 - will shower today per pt Central line issues: ZAHRAA Maddieromeo c/d/i. Positional, best return obtained laying flat and h ead turned to right during inspiration. Drsg changed 04/19 early after getting wet in shower , biopatch laid over catheter, unable to underlay d/t tight sutures. Other: NURSING ASSESSMENT & RECOMMENDATIONS FORWARD Nursing Assessment of Patient Stability Risk: Moderately stable Recommendations Forward: Orders to follow up on: - watch for results of gi panel - using maternity ice packs from L&D Labs still due: Posa level 04/28 prior to am dose Replacements needed: Anticipated or pending procedures: none Symptom management: Education needed: reinforcement of transplant expectations Other: Barriers to discharge: Count recovery. andoff - Carly Montez RN - 04/26/2019 2:36 AM PDTNursing Handoff Patient Daily Goal: RN goals: chemotherapy administration, cluster care as able to promote rest. (04/17/192014) Patient Specific Preferences: Ice water. (04/16/191954) [facility] IP NURSE HANDOFF: [facility] events: Primary Diagnosis: MDS Transplant: Double Cord, Day +4 Chemo: FluCyTBI, Gamida trial PMH: Herpes Zoster Psych/Social: Stephenie is , and lives in [place] on her niece's property. Stephenie [place] to [place] earlier this year from [place] to be near family when she learned she was ill. [place] and her sister's daughter in [place]. Her sister has dementia and lives nearby in assisted living. Good friend, Susan, will be caregiver. Advance Care Planning: Stephenie wants her niece to be her medical decision maker. She has AD paperwork and is working on it. Research study: Active Hospital Events: 04/17: Non neutropenic fever. Blood cx and chest xray done. Cefepime started. 04/18: TBI started, 4-da course 04/20: cefepime dc'd, levaquin started 04/22 transplant 04/25: 1.5 L stool on day shift. cdiff negative. Gi panel sent; results pending. SAFETY Patient/Family Target: Stephenie will remain safe and free from falls. Progress to Target: No Change As evidenced by: Falls and mobility: safety/fall precautions reinforced. Steady sit/stand/gait noted. Pt a ford of limitations and utilizes call light appropriately. Mental status changes: A&O x4. Other: COMFORT/ANXIETY/BEHAVIOR Patient/Family Target: Stephenie will report no pain. Progress to Target: Deteriorating As evidenced by: Pain: Perirectal pain. Occas MCARTHUR, tylenol effective. Sitz bath setup. Nausea: Reports nausea associated with having a BM and also with position changes. Zofran n ow scheduled. 5mg po compazine effective for breakthrough. Bowel function: LBM 04/25. Hemorrhoid/perirectal burning- NDX & proctozone in bathroom. Oxy codone. Maternal ice packs from L&D effective for relief. Sitz bath attempted, but water was too warm. Sleep: Psych: pleasant Other: HYGIENE/INFECTION Patient/Family Target: Stephenie will remain free of s/sx of infection. Progress to Target: Improving As evidenced by: Skin: int flushed, yosef face. Two small white spots to mid-lower chest, intact, no itching , monitoring. S/s of infection: First temp spike (non-neutropenic) 04/17. Cefepime started, blood cx and chest xray done. SOB intermittently - chest xray showed small pleural effusions and atelecta sis, incentive spirometer provided with education. No issues this shift, afebrile. Abx de-es calated to Levaquin 04/20. Bathing issues: shower 04/23 - will shower today per pt Central line issues: ZAHRAA Rios c/d/i. Positional, best return obtained laying flat and h ead turned to right during inspiration. Drsg changed 04/19 early after getting wet in shower , biopatch laid over catheter, unable to underlay d/t tight sutures. Other: NURSING ASSESSMENT & RECOMMENDATIONS FORWARD Nursing Assessment of Patient Stability Risk: Moderately stable Recommendations Forward: Orders to follow up on: -watch for results of gi panel - using maternity ice packs from L&D Labs still due: Posa level 04/28 prior to am dose Replacements needed: Mg Anticipated or pending procedures: none Symptom management: Education needed: reinforcement of transplant expectations Other: Barriers to discharge: Count recovery. andoff - Luis Beckwith RN - 04/25/2019 6:50 PM PDTNursing Handoff Patient Daily Goal: RN goals: chemotherapy administration, cluster care as able to promote rest. (04/17/192014) Patient Specific Preferences: Ice water. (04/16/191954) [facility] IP NURSE HANDOFF: [facility] events: Primary Diagnosis: MDS Transplant: Double Cord, Day +3 Chemo: FluCyTBI, Gamida trial PMH: Herpes Zoster Psych/Social: Stephenie is , and lives in [place] on her niece's property. Stephenie [place] to [place] earlier this year from [place] to be near family when she learned she was ill. Her main family is a [place] and her sister's daughter in [place]. Her sister has dementia and lives nearby in assisted living. Good friend, Susan, will be caregiver. Advance Care Planning: Stephenie wants her niece to be her medical decision maker. She has AD paperwork and is working on it. Research study: Active Hospital Events: 04/17: Non neutropenic fever. Blood cx and chest xray done. Cefepime started. 04/18: TBI started, 4-da course 04/20: cefepime dc'd, levaquin started 04/22 transplant 04/25: 1.5 L stool on day shift. cdiff negative. Gi panel sent; results pending. SAFETY Patient/Family Target: Stephenie will remain safe and free from falls. Progress to Target: No Change As evidenced by: Falls and mobility: safety/fall precautions reinforced. Steady sit/stand/gait noted. Pt a ford of limitations and utilizes call light appropriately. Mental status changes: A&O x4. Other: COMFORT/ANXIETY/BEHAVIOR Patient/Family Target: Stephenie will report no pain. Progress to Target: Deteriorating As evidenced by: Pain: Perirectal pain. Occas MCARTHUR, tylenol effective. Sitz bath setup. Nausea: Reports nausea associated with having a BM and also with position changes. Zofran n ow scheduled. 5mg po compazine effective for breakthrough. Bowel function: LBM 04/25. Hemorrhoid/perirectal burning- NDX & proctozone in bathroom. Oxy codone. Maternal ice packs from L&D effective for relief. Sitz bath attempted, but water was too warm. Sleep: Psych: pleasant Other: HYGIENE/INFECTION Patient/Family Target: Stephenie will remain free of s/sx of infection. Progress to Target: Improving As evidenced by: Skin: int flushed, yosef face. Two small white spots to mid-lower chest, intact, no itching , monitoring. S/s of infection: First temp spike (non-neutropenic) 04/17. Cefepime started, blood cx and chest xray done. SOB intermittently - chest xray showed small pleural effusions and atelecta sis, incentive spirometer provided with education. No issues this shift, afebrile. Abx de-es calated to Levaquin 04/20. Bathing issues: shower 04/23 - will shower today per pt Central line issues: LUE Groshong c/d/i. Positional, best return obtained laying flat and h ead turned to right during inspiration. Drsg changed 04/19 early after getting wet in shower , biopatch laid over catheter, unable to underlay d/t tight sutures. Other: NURSING ASSESSMENT & RECOMMENDATIONS FORWARD Nursing Assessment of Patient Stability Risk: Moderately stable Recommendations Forward: Orders to follow up on: -watch for results of gi panel - using maternity ice packs from L&D Labs still due: Posa level 04/28 prior to am dose Replacements needed: Anticipated or pending procedures: none Symptom management: Education needed: reinforcement of transplant expectations Other: Barriers to discharge: Count recovery. lan of Laxmi - Marla Wells, MATT - 04/25/2019 10:19 AM PDT Problem: Nutrition Interventions Intervention: Food and nutrient distribution type or amount Note: Pt with declining oral intake at this time. Is taking in adequate PO fluids and supplement ing with boost shakes PRN Nutrition Diagnosis: predicted inadequate oral intake r/t pretransplant regimen. Goal of Nutrition Care: promote adequate oral intake Continue with low bacteria diet Encourage PO as tolerated Treat symptoms PRN Following Marla Wells RD, GREASE RENDERER, LD Pager [phone] 53 year old female with MDS admit for Flu/TBI/Cy followed by double cord (on gamida trial- randomized to SOC) on 04/22/19 Low bacteria diet: 70 % x1 with 2852 ml (includes boost shakes) 5'2" 68.8 kg BMI: 27.6 Est needs: [id number] david (25-30 david/kg) 103-123 g pro (1.5-1.8 gpro/kg) Electronically sign ed by Marla Wells RD at 04/25/2019 10:19 AM PDTHandoff - Roly Ho RN - 04/25/2019 6:26 AM PDTNursing Handoff Patient Daily Goal: RN goals: chemotherapy administration, cluster care as able to promote rest. (04/17/192014) Patient Specific Preferences: Ice water. (04/16/191954) [facility] IP NURSE HANDOFF: [facility] events: Primary Diagnosis: MDS Transplant: Double Cord, Day +3 Chemo: FluCyTBI, Gamida trial PMH: Herpes Zoster Psych/Social: Stephenie is , and lives in [place] on her niece's property. Stephenie [place] to [place] earlier this year from [place] to be near family when she learned she was ill. Her main family is a [place] and her sister's daughter in [place]. Her sister has dementia and lives nearby in assisted living. Good friend, Susan, will be caregiver. Advance Care Planning: Stephenie wants her niece to be her medical decision maker. She has AD paperwork and is working on it. Research study: Active Hospital Events: 04/17: Non neutropenic fever. Blood cx and chest xray done. Cefepime started. 04/18: TBI started, 4-da course 04/20: cefepime dc'd, levaquin started 04/22 transplant SAFETY Patient/Family Target: Stephenie will remain safe and free from falls. Progress to Target: No Change As evidenced by: Falls and mobility: safety/fall precautions reinforced. Steady sit/stand/gait noted. Pt a ford of limitations and utilizes call light appropriately. Mental status changes: A&O x4. Other: COMFORT/ANXIETY/BEHAVIOR Patient/Family Target: Stephenie will report no pain. Progress to Target: No Change As evidenced by: Pain: Perirectal pain. Occas MCARTHUR, tylenol effective. Nausea: Reports nausea associated with having a BM and also with position changes. Zofran n ow scheduled. 5mg po compazine effective for bvreakthrough. Bowel function: LBM 04/24. Hemorrhoid/perirectal burning- NDX & proctozone in bathroom. 5mg oxy given 04/24- but pt again had a BM about 10 mins after administration. Maternal ice pac ks from L&D effective for relief. Sleep: Psych: pleasant Other: HYGIENE/INFECTION Patient/Family Target: Stephenie will remain free of s/sx of infection. Progress to Target: Improving As evidenced by: Skin: int flushed, yosef face. Two small white spots to mid-lower chest, intact, no itching , monitoring. S/s of infection: First temp spike (non-neutropenic) 04/17. Cefepime started, blood cx and chest xray done. SOB intermittently - chest xray showed small pleural effusions and atelecta sis, incentive spirometer provided with education. No issues this shift, afebrile. Abx de-es calated to Levaquin 04/20. Bathing issues: shower 04/23 - will shower today per pt Central line issues: ZAHRAA Rios c/d/i. Positional, best return obtained laying flat and h ead turned to right during inspiration. Drsg changed 04/19 early after getting wet in shower , biopatch laid over catheter, unable to underlay d/t tight sutures. Other: NURSING ASSESSMENT & RECOMMENDATIONS FORWARD Nursing Assessment of Patient Stability Risk: Moderately stable Recommendations Forward: Orders to follow up on: - Please clarify [address] Dr[address] Canchola, has not DC'd order yet, need to c heck with research coordinators firt - using materityl ice packs from L&D -BM's transitioning from loose to watery per pt, hat just placed to monitor Labs still due: VRE - pt agreed to do it today after shower due to rectal pain Posa level 04/28 prior to am dose Replacements needed: 40 meq Kdur scheduled for 9am, pt prefers pills but IV in pt bin if sh e gets nauseous Anticipated or pending procedures: none Symptom management: Education needed: reinforcement of transplant expectations Other: Barriers to discharge: Count recovery. andoff - Magda Gurrola ra, RN - 04/24/2019 7:16 AM PDTNursing Handoff Patient Daily Goal: RN goals: chemotherapy administration, cluster care as able to promote rest. (04/17/192014) Patient Specific Preferences: Ice water. (04/16/191954) [facility] IP NURSE HANDOFF: [facility] events: Primary Diagnosis: MDS Transplant: Double Cord, Day +2 Chemo: FluCyTBI, Gamida trial PMH: Herpes Zoster Psych/Social: Stephenie is , and lives in [place] on her niece's property. Stephenie leigh shante to [place] earlier this year from [place] be near family when she learned she was ill. Her main family is a brother in the [place] and her sister's daughter in [place]. Her sister has dementia and lives nearby in assisted living. Good friend, Susan, will be caregiver. Advance Care Planning: Stephenie wants her niece to be her medical decision maker. She has AD paperwork and is working on it. Research study: Active Hospital Events: 04/17: Non neutropenic fever. Blood cx and chest xray done. Cefepime started. 04/18: TBI started, 4-da course 04/20: cefepime dc'd, levaquin started 04/22 transplant SAFETY Patient/Family Target: Stephenie will remain safe and free from falls. Progress to Target: No Change As evidenced by: Falls and mobility: safety/fall precautions reinforced. Steady sit/stand/gait noted. Pt a ford of limitations and utilizes call light appropriately. Mental status changes: A&O x4. Other: COMFORT/ANXIETY/BEHAVIOR Patient/Family Target: Stephenie will report no pain. Progress to Target: No Change As evidenced by: Pain: Perirectal pain. Occas MCARTHUR, tylenol effective. Nausea: Reports nausea associated with having a BM and also with position changes. Zofran n ow scheduled. 5mg po compazine given [id number]. Bowel function: LBM 04/24. Hemorrhoid/perirectal burning- NDX & proctozone in bathroom. 5mg oxy given 04/24- but pt again had a BM about 10 mins after administration. Maternal ice pac ks from L&D effective for relief. Sleep: Psych: pleasant Other: HYGIENE/INFECTION Patient/Family Target: Stephenie will remain free of s/sx of infection. Progress to Target: Improving As evidenced by: Skin: int flushed, yosef face. Two small white spots to mid-lower chest, intact, no itching , monitoring. S/s of infection: First temp spike (non-neutropenic) 04/17. Cefepime started, blood cx and chest xray done. SOB intermittently - chest xray showed small pleural effusions and atelecta sis, incentive spirometer provided with education. No issues this shift, afebrile. Abx de-es calated to Levaquin 04/20. Bathing issues: shower 04/22 am - agreed to shower today 04/24 Central line issues: LUE Groshong c/d/i. Positional, best return obtained laying flat and h ead turned to right during inspiration. Drsg changed 04/19 early after getting wet in shower , biopatch laid over catheter, unable to underlay d/t tight sutures. Other: NURSING ASSESSMENT & RECOMMENDATIONS FORWARD Nursing Assessment of Patient Stability Risk: Moderately stable Recommendations Forward: Orders to follow up on: - Please clarify 1530 CBC order daily. (unable to be draw today d/t no BR from Groshong bot h times when attempted). Per Dr. Canchola, has not DC'd order yet, need to check with [facility] coordinators firt - TPA to be removed from both lumens @ 2014 - using materityl ice packs from L&D - Needs to CHG wipe, did not shower 04/23 Labs still due: Posa level 04/28 prior to am dose Replacements needed: none Anticipated or pending procedures: Symptom management: Education needed: reinforcement of transplant expectations Other: Barriers to discharge: Count recovery. andoff - Rosendo Ho, RN - 04/24/2019 5:39 AM PDTNursing Handoff Patient Daily Goal: RN goals: chemotherapy administration, cluster care as able to promote rest. (04/17/192014) Patient Specific Preferences: Ice water. (04/16/191954) [facility] IP NURSE HANDOFF: [facility] events: Primary Diagnosis: MDS Transplant: Double Cord, Day +2 Chemo: FluCyTBI, Gamida trial PMH: Herpes Zoster Psych/Social: Stephenie is , and lives in [place] on her niece's property. Stephenie m shante to [place] earlier this year from [place] to be near family when she learned she was ill. Her main family is a brother in the [place] and her sister's daughter in [place]. Her sister has dementia and lives nearby in assisted living. Good friend, Susan, will be caregiver. Advance Care Planning: Stephenie wants her niece to be her medical decision maker. She has AD paperwork and is working on it. Research study: Active Hospital Events: 04/17: Non neutropenic fever. Blood cx and chest xray done. Cefepime started. 04/18: TBI started, 4-da course 04/20: cefepime dc'd, levaquin started 04/22 transplant SAFETY Patient/Family Target: Stephenie will remain safe and free from falls. Progress to Target: No Change As evidenced by: Falls and mobility: safety/fall precautions reinforced. Steady sit/stand/gait noted. Pt a ford of limitations and utilizes call light appropriately. Mental status changes: A&O x4. Other: COMFORT/ANXIETY/BEHAVIOR Patient/Family Target: Stephenie will report no pain. Progress to Target: No Change As evidenced by: Pain: Mild tenderness at IJ above groshong insertion site, improving. Occas MCARTHUR, tylenol e ffective. CV: Nausea: Bowel function: LBM 04/23. Hemorrhoid/perirectal burning- NDX & proctozone in bathroom. 5mg oxy given 04/23- pt didn't have a BM till 6 hrs later and didn't feel like it worked Sleep: Psych: pleasant Other: HYGIENE/INFECTION Patient/Family Target: Stephenie will remain free of s/sx of infection. Progress to Target: Improving As evidenced by: Skin: int flushed, yosef face. Two small white spots to mid-lower chest, intact, no itching , monitoring. S/s of infection: First temp spike (non-neutropenic) 04/17. Cefepime started, blood cx and chest xray done. SOB intermittently - chest xray showed small pleural effusions and atelecta sis, incentive spirometer provided with education. No issues this shift, afebrile. Abx de-es calated to Levaquin 04/20. Bathing issues: shower 04/22 am - agreed to shower today 04/24 Central line issues: LUE Groshong c/d/i. Positional, best return obtained laying flat and h ead turned to right during inspiration. Drsg changed 04/19 early after getting wet in shower , biopatch laid over catheter, unable to underlay d/t tight sutures. Other: NURSING ASSESSMENT & RECOMMENDATIONS FORWARD Nursing Assessment of Patient Stability Risk: Moderately stable Recommendations Forward: Orders to follow up on: - CBC scheduled for 1530 daily, can it be DC'd? Labs still due: VRE today after shower Replacements needed: none Anticipated or pending procedures: Symptom management: Education needed: reinforcement of transplant expectations Other: Barriers to discharge: Count recovery. andoff - Magda Gurrola ra RN - 04/23/2019 7:43 AM PDTNursing Handoff Patient Daily Goal: RN goals: chemotherapy administration, cluster care as able to promote rest. (04/17/192014) Patient Specific Preferences: Ice water. (04/16/191954) [facility] IP NURSE HANDOFF: [facility] events: Primary Diagnosis: MDS Transplant: Double Cord, Day +1 Chemo: FluCyTBI, Gamida trial PMH: Herpes Zoster Psych/Social: Stephenie is , and lives in [place] on her niece's property. Stephenie [place] to [place] earlier this year from [place] to be near family when she learned she was ill. [place] and her sister's daughter in [place]. Her sister has dementia and lives nearby in assisted living. Good friend, Susan, will be caregiver. Advance Care Planning: Stephenie wants her niece to be her medical decision maker. She has AD paperwork and is working on it. Research study: Active Hospital Events: 04/17: Non neutropenic fever. Blood cx and chest xray done. Cefepime started. 04/18: TBI started, 4-da course 04/20: cefepime dc'd, levaquin started 04/22 transplant SAFETY Patient/Family Target: Stephenie will remain safe and free from falls. Progress to Target: No Change As evidenced by: Falls and mobility: safety/fall precautions reinforced. Steady sit/stand/gait noted. Pt a ford of limitations and utilizes call light appropriately. Mental status changes: A&O x4. Other: COMFORT/ANXIETY/BEHAVIOR Patient/Family Target: Stephenie will report no pain. Progress to Target: No Change As evidenced by: Pain: Mild tenderness at IJ above groshong insertion site, improving. Occas MCARTHUR, tylenol e ffective. CV: Nausea: Bowel function: LBM 04/23. Hemorrhoid/perirectal burning- NDX & proctozone in bathroom. 5mg oxy given today to see if that would help when having a BM . Sleep: Psych: pleasant Other: HYGIENE/INFECTION Patient/Family Target: Stephenie will remain free of s/sx of infection. Progress to Target: Improving As evidenced by: Skin: int flushed, yosef face. Two small white spots to mid-lower chest, intact, no itching , monitoring. S/s of infection: First temp spike (non-neutropenic) 04/17. Cefepime started, blood cx and chest xray done. SOB intermittently - chest xray showed small pleural effusions and atelecta sis, incentive spirometer provided with education. No issues this shift, afebrile. Abx de-es calated to Levaquin 04/20. Bathing issues: shower 04/22 am Central line issues: LUE Groshong c/d/i. Positional, best return obtained laying flat and h ead turned to right during inspiration. Drsg changed 04/19 early after getting wet in shower , biopatch laid over catheter, unable to underlay d/t tight sutures. Other: NURSING ASSESSMENT & RECOMMENDATIONS FORWARD Nursing Assessment of Patient Stability Risk: Moderately stable Recommendations Forward: Orders to follow up on: - CBC scheduled for 1530 daily, can it be DC'd? Labs still due: Replacements needed: none Anticipated or pending procedures: Symptom management: Education needed: reinforcement of transplant expectations Other: Barriers to discharge: Count recovery. andoff - Colten Mehta - 04/23/2019 5:30 AM PDTNursing Handoff Patient Daily Goal: RN goals: chemotherapy administration, cluster care as able to promote rest. (04/17/192014) Patient Specific Preferences: Ice water. (04/16/191954) [facility] IP NURSE HANDOFF: [facility] events: Primary Diagnosis: MDS Transplant: Double Cord, Day +1 Chemo: FluCyTBI, Gamida trial PMH: Herpes Zoster Psych/Social: Stephenie is , and lives in [place] on her niece's property. Stephenie [place] to [place] earlier this year from [place] to be near family when she learned she was ill. Her main family is a brother in [place] and her sister's daughter in [place]. Her sister has dementia and lives nearby in assisted living. Good friend, Susan, will be caregiver. Advance Care Planning: Stephenie wants her niece to be her medical decision maker. She has AD paperwork and is working on it. Research study: Active Hospital Events: 04/17: Non neutropenic fever. Blood cx and chest xray done. Cefepime started. 04/18: TBI started, 4-da course 04/20: cefepime dc'd, levaquin started 04/22 transplant SAFETY Patient/Family Target: Stephenie will remain safe and free from falls. Progress to Target: No Change As evidenced by: Falls and mobility: safety/fall precautions reinforced. Steady sit/stand/gait noted. Pt a ford of limitations and utilizes call light appropriately. Mental status changes: A&O x4. Other: COMFORT/ANXIETY/BEHAVIOR Patient/Family Target: Stephenie will report no pain. Progress to Target: No Change As evidenced by: Pain: Mild tenderness at IJ above groshong insertion site, improving. Occas MCARTHUR, tylenol e ffective. CV: Nausea: Bowel function: LBM 04/22. Hemorrhoid/perirectal burning- NDX in bathroom. proctozone in ba throom. Sleep: Psych: pleasant Other: HYGIENE/INFECTION Patient/Family Target: Stephenie will remain free of s/sx of infection. Progress to Target: Improving As evidenced by: Skin: int flushed, yosef face. Two small white spots to mid-lower chest, intact, no itching , monitoring. S/s of infection: First temp spike (non-neutropenic) 04/17. Cefepime started, blood cx and chest xray done. SOB intermittently - chest xray showed small pleural effusions and atelecta sis, incentive spirometer provided with education. No issues this shift, afebrile. Abx de-es calated to Levaquin 04/20. Bathing issues: shower 04/21 Central line issues: LUE Groshong c/d/i. Positional, best return obtained laying flat and h ead turned to right during inspiration. Drsg changed 04/19 early after getting wet in shower , biopatch laid over catheter, unable to underlay d/t tight sutures. Other: NURSING ASSESSMENT & RECOMMENDATIONS FORWARD Nursing Assessment of Patient Stability Risk: Moderately stable Recommendations Forward: Orders to follow up on: Labs still due: q12 CBC Replacements needed: none Anticipated or pending procedures: Symptom management: Education needed: reinforcement of transplant expectations Other: Barriers to discharge: Count recovery. andoff - Analy Gurrola RN - 04/22/2019 7:33 AM PDTNursing Handoff Patient Daily Goal: RN goals: chemotherapy administration, cluster care as able to promote rest. (04/17/192014) Patient Specific Preferences: Ice water. (04/16/191954) [facility] IP NURSE HANDOFF: [facility] events: Primary Diagnosis: MDS Transplant: Double Cord, Day 0 Chemo: FluCyTBI, Gamida trial PMH: Herpes Zoster Psych/Social: Stephenie is , and lives in [place] on her niece's property. Stephenie [place] to [place] earlier this year from [place] to be near family when she learned she was ill. [place] and her sister's daughter in [place]. Her sister has dementia and lives nearby in assisted living. Good friend, Susan, will be caregiver. Advance Care Planning: Stephenie wants her niece to be her medical decision maker. She has AD paperwork and is working on it. Research study: Active Hospital Events: 04/17: Non neutropenic fever. Blood cx and chest xray done. Cefepime started. 04/18: TBI started, 4-da course 04/20: cefepime dc'd, levaquin started SAFETY Patient/Family Target: Stephenie will remain safe and free from falls. Progress to Target: No Change As evidenced by: Falls and mobility: safety/fall precautions reinforced. Steady sit/stand/gait noted. Pt a ford of limitations and utilizes call light appropriately. Mental status changes: A&O x4. Other: COMFORT/ANXIETY/BEHAVIOR Patient/Family Target: Stephenie will report no pain. Progress to Target: No Change As evidenced by: Pain: Mild tenderness at IJ above groshong insertion site, improving. Occas MCARTHUR, tylenol e ffective. CV: SBP in the 190s earlier with transplant, see [facility] for details. 10mg IV hydralazine give n-effective. Nausea: Mild "woozyness" post SCT, 4mg IV zofran given-effective. Bowel function: LBM 04/22. Hemorrhoid/perirectal burning- NDX in bathroom. proctozone in ba throom. Sleep: Psych: pleasant Other: HYGIENE/INFECTION Patient/Family Target: Stephenie will remain free of s/sx of infection. Progress to Target: Improving As evidenced by: Skin: int flushed, yosef face. Two small white spots to mid-lower chest, intact, no itching , monitoring. S/s of infection: First temp spike (non-neutropenic) 04/17. Cefepime started, blood cx and chest xray done. SOB intermittently - chest xray showed small pleural effusions and atelecta sis, incentive spirometer provided with education. No issues this shift, afebrile. Abx de-es calated to Levaquin 04/20. Bathing issues: shower 04/21 Central line issues: LUE Groshong c/d/i. Positional, best return obtained laying flat and h ead turned to right during inspiration. Drsg changed 10/22 early after getting wet in shower , biopatch laid over catheter, unable to underlay d/t tight sutures. Other: NURSING ASSESSMENT & RECOMMENDATIONS FORWARD Nursing Assessment of Patient Stability Risk: Moderately stable Recommendations Forward: Orders to follow up on: - Post SCT VS @ 1910, 2010, 0 & 2210 Labs still due: q12 CBC Replacements needed: none Anticipated or pending procedures: Symptom management: Education needed: reinforcement of transplant expectations Other: Barriers to discharge: Count recovery. andoff - Persons, Colten silva - 04/22/2019 5:00 AM PDTNursing Handoff Patient Daily Goal: RN goals: chemotherapy administration, cluster care as able to promote rest. (04/17/192014) Patient Specific Preferences: Ice water. (04/16/191954) [facility] IP NURSE HANDOFF: [facility] events: Primary Diagnosis: MDS Transplant: Double Cord, Day 0 Chemo: FluCyTBI, Gamida trial PMH: Herpes Zoster Psych/Social: Stephenie is , and lives in [place] on her niece's property. Stephenie m [place] to [place] earlier this year from [place] to be near family when she learned she was ill. Her main family is a brother in [place] and her sister's daughter in [place]. Her sister has dementia and lives nearby in assisted living. Good friend, Susan, will be caregiver. Advance Care Planning: Stephenie wants her niece to be her medical decision maker. She has AD paperwork and is working on it. Research study: Active Hospital Events: 04/17: Non neutropenic fever. Blood cx and chest xray done. Cefepime started. 04/18: TBI started, 4-da course 04/20: cefepime dc'd, levaquin started SAFETY Patient/Family Target: Stephenie will remain safe and free from falls. Progress to Target: No Change As evidenced by: Falls and mobility: safety/fall precautions reinforced. Steady sit/stand/gait noted. Pt a ford of limitations and utilizes call light appropriately. Mental status changes: A&O x4. Other: COMFORT/ANXIETY/BEHAVIOR Patient/Family Target: Stephenie will report no pain. Progress to Target: No Change As evidenced by: Pain: Mild tenderness at IJ above groshong insertion site, improving. Occas MCARTHUR, tylenol e ffective.. Nausea: denies Bowel function: LBM 04/21, pt reports soreness internally (hx of hemorrhoids). NDX in bathr oom Sleep: resting btwn care over night. Psych: pleasant Other: HYGIENE/INFECTION Patient/Family Target: Stephenie will remain free of s/sx of infection. Progress to Target: Improving As evidenced by: Skin: int flushed, yosef face. Two small white spots to mid-lower chest, intact, no itching , monitoring. S/s of infection: First temp spike (non-neutropenic) 04/17. Cefepime started, blood cx and chest xray done. SOB intermittently - chest xray showed small pleural effusions and atelecta sis, incentive spirometer provided with education. No issues this shift, afebrile. Abx de-es calated to Levaquin 04/20. Bathing issues: shower 04/21 Central line issues: LUE Groshong c/d/i. Positional, best return obtained laying flat and h ead turned to right during inspiration. Drsg changed 04/19 early after getting wet in shower , biopatch laid over catheter, unable to underlay d/t tight sutures. Other: NURSING ASSESSMENT & RECOMMENDATIONS FORWARD Nursing Assessment of Patient Stability Risk: Moderately stable Recommendations Forward: Orders to follow up on: Labs still due: q12 CBC. Replacements needed: none Anticipated or pending procedures: -Cord transplant today 04/22 Symptom management: Education needed: reinforcement of transplant expectations Other: Barriers to discharge: Count recovery. Thom - Dione De Anda RN - 04/21/2019 6:39 PM PDTNursing Handoff Patient Daily Goal: RN goals: chemotherapy administration, cluster care as able to promote rest. (04/17/192014) Patient Specific Preferences: Ice water. (04/16/191954) [facility] IP NURSE HANDOFF: [facility] events: Primary Diagnosis: MDS Transplant: Double Cord, Day -1 Chemo: FluCyTBI, Gamida trial PMH: Herpes Zoster Psych/Social: Stephenie is , and lives in [place] on her niece's property. Stephenie le[place] to [place] earlier this year from [place] to be near family when she learned she was ill. [place] and her sister's daughter in [place]. Her sister has dementia and lives nearby in assisted living. Good friend, Susan, will be caregiver. Advance Care Planning: Stephenie wants her niece to be her medical decision maker. She has AD paperwork and is working on it. Research study: Active Hospital Events: 04/17: Non neutropenic fever. Blood cx and chest xray done. Cefepime started. 04/18: TBI started, 4-da course 04/20: cefepime dc'd, levaquin started SAFETY Patient/Family Target: Stephenie will remain safe and free from falls. Progress to Target: No Change As evidenced by: Falls and mobility: safety/fall precautions reinforced. Steady sit/stand/gait noted. Pt a ford of limitations and utilizes call light appropriately. Mental status changes: A&O x4. Other: COMFORT/ANXIETY/BEHAVIOR Patient/Family Target: Stephenie will report no pain. Progress to Target: No Change As evidenced by: Pain: Mild tenderness at IJ above groshong insertion site, improving. Occas MCARTHUR, tylenol e ffective.. Nausea: denies Bowel function: LBM 04/21, pt reports soreness internally (hx of hemorrhoids). NDX in bathr oom Sleep: resting btwn care over night. Psych: pleasant Other: HYGIENE/INFECTION Patient/Family Target: Stephenie will remain free of s/sx of infection. Progress to Target: Improving As evidenced by: Skin: int flushed, yosef face. Two small white spots to mid-lower chest, intact, no itching , monitoring. S/s of infection: First temp spike (non-neutropenic) 04/17. Cefepime started, blood cx and chest xray done. SOB intermittently - chest xray showed small pleural effusions and atelecta sis, incentive spirometer provided with education. No issues this shift, afebrile. Abx de-es calated to Levaquin 04/20. Bathing issues: shower 04/21 Central line issues: LUE Groshong c/d/i. Positional, best return obtained laying flat and h ead turned to right during inspiration. Drsg changed 04/19 early after getting wet in shower , biopatch laid over catheter, unable to underlay d/t tight sutures. Other: NURSING ASSESSMENT & RECOMMENDATIONS FORWARD Nursing Assessment of Patient Stability Risk: Moderately stable Recommendations Forward: Orders to follow up on: Labs still due: q12 CBC. Replacements needed: none Anticipated or pending procedures: -Cord transplant 04/22 Symptom management: Education needed: reinforcement of transplant expectations Other: Barriers to discharge: Count recovery. andoff - Eric Johnson RN - 04/20/2019 8:13 PM PDTNursing Handoff Patient Daily Goal: RN goals: chemotherapy administration, cluster care as able to promote rest. (04/17/192014) Patient Specific Preferences: Ice water. (04/16/191954) [facility] IP NURSE HANDOFF: [facility] events: Primary Diagnosis: MDS Transplant: Double Cord, Day -1 Chemo: FluCyTBI, Gamida trial PMH: Herpes Zoster Psych/Social: Stephenie is , and lives in [place] on her niece's property. Stephenie le[place] to [place] earlier this year from [place] to be near family when she learned she was ill. Her [place] and her sister's daughter in [place]. Her sister has dementia and lives nearby in assisted living. Good friend, Susan, will be caregiver. Advance Care Planning: Stephenie wants her niece to be her medical decision maker. She has AD paperwork and is working on it. Research study: Active Hospital Events: 04/17: Non neutropenic fever. Blood cx and chest xray done. Cefepime started. 04/18: TBI started, 4-da course 04/20: cefepime dc'd, levaquin started SAFETY Patient/Family Target: Stephenie will remain safe and free from falls. Progress to Target: No Change As evidenced by: Falls and mobility: safety/fall precautions reinforced. Steady sit/stand/gait noted. Pt a ford of limitations and utilizes call light appropriately. Mental status changes: A&O x4. Other: COMFORT/ANXIETY/BEHAVIOR Patient/Family Target: Stephenie will report no pain. Progress to Target: No Change As evidenced by: Pain: Mild tenderness at IJ above groshong insertion site, improving. Occas MCARTHUR, tylenol e ffective.. Nausea: denies Bowel function: LBM 04/20, x1 hard, x1 soft per pt Sleep: resting btwn care over night. Psych: pleasant Other: HYGIENE/INFECTION Patient/Family Target: Stephenie will remain free of s/sx of infection. Progress to Target: Improving As evidenced by: Skin: int flushed, yosef face. Two small white spots to mid-lower chest, intact, no itching , monitoring. S/s of infection: First temp spike (non-neutropenic) 04/17. Cefepime started, blood cx and chest xray done. SOB intermittently - chest xray showed small pleural effusions and atelecta sis, incentive spirometer provided with education. No issues this shift, afebrile. Abx de-es calated to Levaquin 04/20. Bathing issues: shower 04/20 Central line issues: LUE Groshong c/d/i. Positional, best return obtained laying flat and h ead turned to right during inspiration. Drsg changed 04/19 early after getting wet in shower , biopatch laid over catheter, unable to underlay d/t tight sutures. Other: NURSING ASSESSMENT & RECOMMENDATIONS FORWARD Nursing Assessment of Patient Stability Risk: Moderately stable Recommendations Forward: Orders to follow up on: Labs still due: q12 CBC. Replacements needed: none Anticipated or pending procedures: -Last day of TBI x2 - see times in sticky note. -Cord transplant 04/22 Symptom management: Education needed: reinforcement of transplant expectations Other: Barriers to discharge: Count recovery. lan of Laxmi - Marla Wells RD - 04/20/2019 8:27 AM PDT Problem: Nutrition Interventions Intervention: Food and nutrient distribution type or amount Note: Pt continues to tolerate PO fairly well at this time. No changes to diet necessary at this time Nutrition Diagnosis: predicted inadequate oral intake r/t pretransplant regimen. Goal of Nutrition Care: promote adequate oral intake Continue with low bacteria diet Encourage PO as tolerated Treat symptoms PRN Following Marla Wells RD, GREASE RENDERER, LD Pager [phone] 53 year old female with MDS admit for Flu/TBI/Cy followed by double cord (on gamida trial- randomized to SOC) on 04/22/19 Low bacteria diet: 65-100 % po's 5'2" 68.8 kg BMI: 27.6 Est needs: 5061-8552 david (25-30 david/kg) 103-123 g pro (1.5-1.8 gpro/kg) Electronically sign ed by Marla Wells RD at 04/20/2019 8:28 AM PDTHandoff - Eric Johnson RN - 04/19/2019 7:41 PM PDTNursing Handoff Patient Daily Goal: RN goals: chemotherapy administration, cluster care as able to promote rest. (04/17/192014) Patient Specific Preferences: Ice water. (04/16/191954) [facility] IP NURSE HANDOFF: [facility] events: Primary Diagnosis: MDS Transplant: Double Cord, Day -2 Chemo: FluCyTBI, Gamida trial PMH: Herpes Zoster Psych/Social: Stephenie is , and lives in [place] on her niece's property. Stephenie [place] shante to [place] earlier this year from [place] to be near family when she learned she was ill. Her main family is a brother [place] and her sister's daughter in [place]. Her sister has dementia and lives nearby in assisted living. Good friend, Susan, will be caregiver. Advance Care Planning: Stephenie wants her niece to be her medical decision maker. She has AD paperwork and is working on it. Research study: Active Hospital Events: 04/17: Non neutropenic fever. Blood cx and chest xray done. Cefepime started. 04/18: TBI started, 4-da course SAFETY Patient/Family Target: Stephenie will remain safe and free from falls. Progress to Target: No Change As evidenced by: Falls and mobility: safety/fall precautions reinforced. Steady sit/stand/gait noted. Pt a ford of limitations and utilizes call light appropriately. Mental status changes: A&O x4. Other: COMFORT/ANXIETY/BEHAVIOR Patient/Family Target: Stephenie will report no pain. Progress to Target: No Change As evidenced by: Pain: Mild tenderness at IJ above groshong insertion site, improving. Occas MCARTHUR, tylenol e ffective.. Nausea: denies Bowel function: 3 BMs today after being constipated for 2 days. Sleep: resting btwn care over night. Psych: pleasant Other: HYGIENE/INFECTION Patient/Family Target: Stephenie will remain free of s/sx of infection. Progress to Target: Deteriorating As evidenced by: Skin: flushed, yosef face. Two white spots to mid-lower chest, monitoring. S/s of infection: First temp spike (non-neutropenic) 04/17. Cefepime started, blood cx and chest xray done. SOB intermittently - chest xray showed small pleural effusions and atelecta sis, incentive spirometer provided with education. No issues this shift, afebrile. Bathing issues: shower 04/19 Central line issues: LUE Groshong c/d/i. Positional, best return obtained laying flat and h ead turned to right during inspiration. Drsg changed 04/19 early after getting wet in shower , biopatch laid over catheter, unable to underlay d/t tight sutures. Other: NURSING ASSESSMENT & RECOMMENDATIONS FORWARD Nursing Assessment of Patient Stability Risk: Moderately stable Recommendations Forward: Orders to follow up on: Labs still due: q12 CBC. Replacements needed: Klor-Con needed in am. Anticipated or pending procedures: TBI x2/day - see times in sticky note Symptom management: -feeling chilled at times. On cefepime (1st temp was 10/20, non-neutropenic) Education needed: reinforcement of transplant expectations Other: Barriers to discharge: Count recovery. Thom - Dione De Anda RN - 04/19/2019 6:25 PM PDTNursing Handoff Patient Daily Goal: RN goals: chemotherapy administration, cluster care as able to promote rest. (04/17/192014) Patient Specific Preferences: Ice water. (04/16/191954) [facility] IP NURSE HANDOFF: [facility] course events: Primary Diagnosis: MDS Transplant: Double Cord, Day -3 Chemo: FluCyTBI, Gamida trial PMH: Herpes Zoster Psych/Social: Stephenie is , and lives in [place] on her niece's property. Stephenie le[place] to [place] earlier this year from [place] to be near family when she learned she was ill. [place] and her sister's daughter in [place]. Her sister has dementia and lives nearby in assisted living. Good friend, Susan, will be caregiver. Advance Care Planning: Stephenie wants her niece to be her medical decision maker. She has AD paperwork and is working on it. Research study: Active Hospital Events: 04/17: Non neutropenic fever. Blood cx and chest xray done. Cefepime started. 04/18: TBI started SAFETY Patient/Family Target: Stephenie will remain safe and free from falls. Progress to Target: No Change As evidenced by: Falls and mobility: safety/fall precautions reinforced. Steady sit/stand/gait noted. Pt a ford of limitations and utilizes call light appropriately. Mental status changes: A&O x4. Other: COMFORT/ANXIETY/BEHAVIOR Patient/Family Target: Stephenie will report no pain. Progress to Target: No Change As evidenced by: Pain: Mild tenderness at IJ above groshong insertion site, improving. MCARTHUR in early am, tyl enol given. Nausea: denies Bowel function: A couple BMs today after being constipated for 2 days. Sleep: resting btwn care over night. Psych: pleasant Other: HYGIENE/INFECTION Patient/Family Target: Stephenie will remain free of s/sx of infection. Progress to Target: Deteriorating As evidenced by: Skin: flushed, yosef face. Two white spots to mid-lower chest, monitoring. S/s of infection: First temp spike (non neutropenic) 04/17. Cefepime started, blood cx and chest xray done. SOB intermittently - chest xray showed small pleural effusions and atelecta sis, incentive spirometer provided with education. Flirting temp this shift, Tmax 37.6. Bathing issues: shower 04/19 Central line issues: LUE Maddieshong c/d/i. Positional, best return obtained laying flat and h ead turned to right during inspiration. Other: NURSING ASSESSMENT & RECOMMENDATIONS FORWARD Nursing Assessment of Patient Stability Risk: Moderately stable Recommendations Forward: Orders to follow up on: Labs still due: q12 CBC. Replacements needed: Anticipated or pending procedures: TBI x2/day - see times in sticky note Symptom management: -feeling chilled at times. On cefepime (1st temp was 04/17, non-neutropenic) Education needed: reinforcement of transplant expectations Other: Barriers to discharge: Count recovery. andoff - Eric Johnson RN - 04/18/2019 8:06 PM PDTNursing Handoff Patient Daily Goal: RN goals: chemotherapy administration, cluster care as able to promote rest. (04/17/192014) Patient Specific Preferences: Ice water. (04/16/191954) [facility] IP NURSE HANDOFF: [facility] course events: Primary Diagnosis: MDS Transplant: Double Cord, Day -3 Chemo: FluCyTBI, Gamida trial PMH: Herpes Zoster Psych/Social: Stephenie is , and lives in [place] on her niece's property. Stephenie [place] to [place] earlier this year from [place] to be near family when she learned she was ill. Her main family is a brother [place] and her sister's daughter in [place]. Her sister has dementia and lives nearby in assisted living. Good friend, Susan, will be caregiver. Advance Care Planning: Stephenie wants her niece to be her medical decision maker. She has AD paperwork and is working on it. Research study: Active Hospital Events: 04/17: Non neutropenic fever. Blood cx and chest xray done. Cefepime started. 04/18: TBI started SAFETY Patient/Family Target: Stephenie will remain safe and free from falls. Progress to Target: No Change As evidenced by: Falls and mobility: safety/fall precautions reinforced. Steady sit/stand/gait noted. Pt a ford of limitations and utilizes call light appropriately. Mental status changes: A&O x4. Other: COMFORT/ANXIETY/BEHAVIOR Patient/Family Target: Stephenie will report no pain. Progress to Target: No Change As evidenced by: Pain: Mild tenderness at IJ above groshong insertion site, improving. MCARTHUR in early am, tyl enol given. Nausea: denies Bowel function: LBM 04/17. A little constipated today, took 2 senna Sleep: resting btwn care over night. Psych: pleasant Other: HYGIENE/INFECTION Patient/Family Target: Stephenie will remain free of s/sx of infection. Progress to Target: Deteriorating As evidenced by: Skin: flushed, yosef face. Two white spots to mid-lower chest, monitoring. S/s of infection: First temp spike (non neutropenic) 04/17. Cefepime started, blood cx and chest xray done. SOB intermittently - chest xray showed small pleural effusions and atelecta sis, incentive spirometer provided with education. Flirting temp this shift, Tmax 37.6. Bathing issues: shower 04/17 Central line issues: LUE Groshong c/d/i. Positional, best return obtained laying flat durin g inspiration. Other: NURSING ASSESSMENT & RECOMMENDATIONS FORWARD Nursing Assessment of Patient Stability Risk: Moderately stable Recommendations Forward: Orders to follow up on: Labs still due: q12 CBC. Need post K check Replacements needed: KCl 60mEq infusing. Anticipated or pending procedures: TBI x2/day - see times in sticky note Symptom management: -feeling chilled at times. On cefepime (1st temp was 04/17, non-neutropenic) -constipated. Took 2 senna this candice Education needed: reinforcement of transplant expectations Other: Barriers to discharge: Count recovery. andoff - Basilia Golden RN - 04/18/2019 6:45 PM PDTNursing Handoff Patient Daily Goal: RN goals: chemotherapy administration, cluster care as able to promote rest. (04/17/192014) Patient Specific Preferences: Ice water. (04/16/191954) [facility] IP NURSE HANDOFF: [facility] course events: Primary Diagnosis: MDS Transplant: Double Cord, Day -4 Chemo: FluCyTBI, Gamida trial PMH: Herpes Zoster Psych/Social: Stephenie is , and lives in [place] on her niece's property. Stephenie [place] to [place] earlier this year from [place] to be near family when she learned she was ill. Her main family is a brother [place] and her sister's daughter in [place]. Her sister has dementia and lives nearby in assisted living. Good friend, Susan, will be caregiver. Advance Care Planning: Stephenie wants her niece to be her medical decision maker. She has AD paperwork and is working on it. Research study: Active Hospital Events: 04/17: Non neutropenic fever. Blood cx and chest xray done. Cefepime started. 04/18: TBI started SAFETY Patient/Family Target: Stephenie will remain safe and free from falls. Progress to Target: No Change As evidenced by: Falls and mobility: safety/fall precautions reinforced. Steady sit/stand/gait noted. Pt a ford of limitations and utilizes call light appropriately. Mental status changes: A&O x4. Other: COMFORT/ANXIETY/BEHAVIOR Patient/Family Target: Stephenie will report no pain. Progress to Target: No Change As evidenced by: Pain: Mild tenderness above groshong insertion site, no PRNs required over night. Improvi ng. Nausea: denies Bowel function: LBM 04/17. A little constipated today, took 2 senna Sleep: resting btwn care over night. Psych: pleasant Other: HYGIENE/INFECTION Patient/Family Target: Stepehnie will remain free of s/sx of infection. Progress to Target: Deteriorating As evidenced by: Skin: flushed. Two white spots to mid-lower chest, monitoring. S/s of infection: First temp spike (non neutropenic) 04/17. Cefepime started, blood cx and chest xray done. SOB intermittently - chest xray showed small pleural effusions and atelecta sis, incentive spirometer provided with education. Bathing issues: shower 04/17 Central line issues: LUE groshong c/d/i Other: NURSING ASSESSMENT & RECOMMENDATIONS FORWARD Nursing Assessment of Patient Stability Risk: Moderately stable Recommendations Forward: Orders to follow up on: Labs still due: n/a Replacements needed: n/a Anticipated or pending procedures: TBI 2 x day - see times in sticky note Symptom management: -feeling chilled, no fever today. On cefepime (1st temp was 04/17) -constipated. Took 2 senna this candice Education needed: reinforcement of transplant expectations Other: Barriers to discharge: Count recovery. andoff - Lillie iWlkes RN - 04/18/2019 6:38 AM PDTNursing Handoff Patient Daily Goal: RN goals: chemotherapy administration, cluster care as able to promote rest. (04/17/192014) Patient Specific Preferences: Ice water. (04/16/191954) [facility] IP NURSE HANDOFF: [facility] course events: Primary Diagnosis: MDS Transplant: Double Cord, Day -4 Chemo: FluCyTBI, Gamida trial PMH: Herpes Zoster Psych/Social: Stephenie is , and lives in [place] on her niece's property. Stephenie [place] to [place] earlier this year from [place] to be near family when she learned she was ill. Her main family is a brother [place] and her sister's daughter in [place]. Her sister has dementia and lives nearby in assisted living. Good friend, Susan, will be caregiver. Advance Care Planning: Stephenie wants her niece to be her medical decision maker. She has AD paperwork and is working on it. Research study: Active Hospital Events: 04/17: Non neutropenic fever. Blood cx and chest xray done. Cefepime started. SAFETY Patient/Family Target: Stephenie will remain safe and free from falls. Progress to Target: No Change As evidenced by: Falls and mobility: safety/fall precautions reinforced. Steady sit/stand/gait noted. Pt a ford of limitations and utilizes call light appropriately. Mental status changes: A&O x4. Other: COMFORT/ANXIETY/BEHAVIOR Patient/Family Target: Stephenie will report no pain. Progress to Target: No Change As evidenced by: Pain: Mild tenderness above groshong insertion site, no PRNs required over night. Improvi ng. Nausea: denies Bowel function: LBM 04/17. Was constipated, now with loose stool. Sleep: resting btwn care over night. Psych: pleasant Other: HYGIENE/INFECTION Patient/Family Target: Stephenie will remain free of s/sx of infection. Progress to Target: Deteriorating As evidenced by: Skin: flushed. Two white spots to mid-lower chest, monitoring. S/s of infection: First temp spike (non neutropenic) 04/17. Cefepime started, blood cx and chest xray done. SOB intermittently - chest xray showed small pleural effusions and atelecta sis, incentive spirometer provided with education. Bathing issues: shower 04/17 Central line issues: LUE groshong c/d/i Other: NURSING ASSESSMENT & RECOMMENDATIONS FORWARD Nursing Assessment of Patient Stability Risk: Moderately stable Recommendations Forward: Orders to follow up on: -monitor I&O (Lasix required 04/17) Labs still due: n/a Replacements needed: n/a Anticipated or pending procedures: TBI @ 8:40 am & 3:50 pm Symptom management (next dose of pain/nausea meds, etc): PRN Tylenol for tight neck, placed on massage therapy list Education needed: reinforcement of transplant expectations Other: Barriers to discharge: Count recovery. hemotherapy - Leilani Brown RN - 04/17/2019 10:30 PM PDTChemotherapy Drug Administration Note: Fludarabine at a dose of 42.5 mg in NaCl 0.9% was administered at 2124. The infusion lasted 30 minutes. ? Prior to administration, chemotherapy was double-checked by second chemotherapy-certified R N (April Ambrosio) At bedside, five rights were verified with April Ambrosio RN and with patient's armba nd/BCMA. ? Prior to administration, brisk blood return was verified from patient's LCW Edong, jose lumen. At the completion of infusion, brisk blood return was verified again. CVC remained W DLs. Reviewed previous teachings with patient, including the risks for: myelosuppression, nausea , vomiting, diarrhea, rash, neurotoxicity, interstitial pneumonitis, weakness, hemolytic ane demario, cough, and infection. ? No reaction or adverse effects noted at this time, will continue to monitor. ? Start time: 2124 Stop time: 2154 HandDione Uriarte RN - 04/17/2019 6:59 PM PDTNursing Handoff Patient Daily Goal: RN goals: chemotherapy administration, alleviate constipations, cluster care as able to promote rest. (04/16/191954) Patient Specific Preferences: Ice water. (04/16/191954) [facility] IP NURSE HANDOFF: [facility] course events: Primary Diagnosis: MDS Transplant: Double Cord, Day -5 Chemo: Gamida trial- [id number] + TBI PMH: Herpes Zoster Psych/Social: Stephenie is , and lives in [place] on her niece's property. Stephenie [place] to [place] earlier this year from [place] to be near family when she learned she was ill. [place] and her sister's daughter in [place]. Her sister has dementia and lives nearby in assisted living. Good friend Susan will be lana estrella. Advance Care Planning: Stephenie wants her niece to be her medical decision maker. She has AD paperwork and is working on it. Research study: Active Hospital Events: - 04/17: Non neutropenic fever. Blood cx and chest xray done. Cefepime started. SAFETY Patient/Family Target: Stephenie will remain safe and free from falls. Progress to Target: No Change As evidenced by: Falls and mobility: safety/fall precautions reinforced. Steady sit/stand/gait noted. Pt a ford of limitations and utilizes call light appropriately. Mental status changes: A&O x4. Other: COMFORT/ANXIETY/BEHAVIOR Patient/Family Target: Stephenie will report no pain. Progress to Target: No Change As evidenced by: Pain: Mild tenderness above groshong insertion site, no PRNs required over night. Nausea: denies Bowel function: LBM 04/17 - formed, still feeling constipated, PRN Senokot given x1 today Sleep: resting btwn care over night. Psych: pleasant Other: HYGIENE/INFECTION Patient/Family Target: Stephenie will remain free of s/sx of infection. Progress to Target: Deteriorating As evidenced by: Skin: Very flushed. S/s of infection: First temp spike (non neutropenic) 04/17. Cefepime started, blood cx and chest xray done. SOB continued throughout day despite 40mg lasix late morning. Bathing issues: shower 04/17 Central line issues: LUE PICC c/d/i Other: As evidenced by: PO intake: Mental status: Activity level: Other: As evidenced by: Activity: Education: Discharge Planning: Other: NURSING ASSESSMENT & RECOMMENDATIONS FORWARD Nursing Assessment of Patient Stability Risk: Moderately stable Recommendations Forward: Orders to follow up on: -monitor I&O (Lasix required overnight) Labs still due: n/a Replacements needed: n/a Anticipated or pending procedures: chemotherapy administration Symptom management (next dose of pain/nausea meds, etc): Education needed: reinforcement of transplant expectations Other: Barriers to discharge: Count recovery. andoff - David Wilkes RN - 04/17/2019 6:18 AM PDTNursing Handoff Patient Daily Goal: RN goals: chemotherapy administration, alleviate constipations, cluster care as able to promote rest. (04/16/191954) Patient Specific Preferences: Ice water. (04/16/191954) [facility] IP NURSE HANDOFF: [facility] course events: Primary Diagnosis: MDS Transplant: Double Cord, Day -5 Chemo: Gamida trial- [id number] + TBI PMH: Herpes Zoster Psych/Social: Stephenie is , and lives in [place] on her niece's property. Stephenie [place] to [place] earlier this year from [place] to be near family when she learned she was ill. Her main family is a [place] and her sister's daughter in [place]. Her sister has dementia and lives nearby in assisted living. Good friend Susan will be lana estrella. Advance Care Planning: Stephenie wants her niece to be her medical decision maker. She has AD paperwork and is working on it. Research study: Active Hospital Events: SAFETY Patient/Family Target: Stephenie will remain safe and free from falls. Progress to Target: No Change As evidenced by: Falls and mobility: safety/fall precautions reinforced. Steady sit/stand/gait noted. Pt a ford of limitations and utilizes call light appropriately. Mental status changes: A&O x4. Other: COMFORT/ANXIETY/BEHAVIOR Patient/Family Target: Stephenie will report no pain. Progress to Target: No Change As evidenced by: Pain: Mild tenderness above groshong insertion site, no PRNs required over night. Nausea: denies Bowel function: LBM 04/15, pt feeling constipated, PRN Senokot given x1. Sleep: resting btwn care over night. Psych: pleasant Other: HYGIENE/INFECTION Patient/Family Target: Stephenie will remain free of s/sx of infection. Progress to Target: No Change As evidenced by: Skin: S/s of infection: afebrile, VSS with exception of around midnight when pt reported sob and presented with htn (resolved with Lasix and reduction of MIVF rate). Bathing issues: Central line issues: LUE PICC c/d/i Other: As evidenced by: PO intake: Mental status: Activity level: Other: As evidenced by: Activity: Education: Discharge Planning: Other: NURSING ASSESSMENT & RECOMMENDATIONS FORWARD Nursing Assessment of Patient Stability Risk: Moderately stable Recommendations Forward: Orders to follow up on: -monitor I&O (Lasix required overnight) Labs still due: n/a Replacements needed: n/a Anticipated or pending procedures: chemotherapy administration Symptom management (next dose of pain/nausea meds, etc): Education needed: reinforcement of transplant expectations Other: Barriers to discharge: Count recovery. hemotherapy - Leilani Brown RN - 04/16/2019 10:00 PM PDTChemotherapy Drug Administration Note: Fludarabine at a dose of 42.5 mg in NaCl 0.9% was administered at 2043. The infusion lasted 30 minutes. ? Prior to administration, chemotherapy was double-checked by second chemotherapy-certified R N (April Ambrosio) At bedside, five rights were verified with April Ambrosio RN and with patient's arm nd/BCMA. ? Prior to administration, brisk blood return was verified from patient's LCW Groshong, white lumen. At the completion of infusion, brisk blood return was verified again. CVC remained W DLs. Reviewed previous teachings with patient, including the risks for: myelosuppression, nausea , vomiting, diarrhea, rash, neurotoxicity, interstitial pneumonitis, weakness, hemolytic ane demario, cough, and infection. ? No reaction or adverse effects noted at this time, will continue to monitor. ? Start time: 2043 Stop time: 2120 andoff - Dione De Anda RN - 04/16/2019 4:23 PM PDTNursing Handoff [place] IP NURSE HANDOFF: [facility] course events: Primary Diagnosis: MDS Transplant: Double Cord Day -6 Chemo: Gamida trial- OON-Uszummmxpqt-Fcnvrlameahgljxu + TBI PMH: Herpes Zoster Psych/Social: Stephenie is , and lives in [place] on her niece's property. Stephen[place] earlier this year [place] family when she learned she was ill. [place] [facility] and her sister's daughter in [place]. Her sister has dementia and lives nearby in assisted living. Good friend Susan will be lana estrella. Advance Care Planning: Stephenie wants her niece to be her medical decision maker. She has AD paperwork and is working on it. Hospital Events: SAFETY Patient/Family Target: Stephenie will not fall Progress to Target: No Change As evidenced by: Falls and mobility: Stephenie is independent at this time Mental status changes: Other: COMFORT/ANXIETY/BEHAVIOR Patient/Family Target: Pt's pain will be controlled. Progress to Target: No Change As evidenced by: Pain: Mild tenderness above groshong insertion site, improved throughout day. Tylenol eff ective. Nausea: Denies Bowel function: Sleep: Psych: Other: As evidenced by: NURSING ASSESSMENT & RECOMMENDATIONS FORWARD Nursing Assessment of Patient Stability Risk: Moderately stable Recommendations Forward: Orders to follow up on: - Pt needs to urinate every 2 hrs d/t cytoxan. Labs still due: Replacements needed: n/a Anticipated or pending procedures: Symptom management (next dose of pain/nausea meds, etc): Education needed: Other: lan of Care - Sheyla Jorge RD - 04/16/2019 12:46 PM PDTProblem: Nutrition Interventions Intervention: Nutrition Education Received consult for low bacteria diet education. Reviewed low bacteria diet with foods to include and avoid. Written materials from [facility] provided. Anticipate good compliance. 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 Has a claims clerk who is not present today who may have additional questions. Cont act information provided. Rec: -Continue low bacteria diet Note: 53 year old female with high risk myelodysplastic syndrome, now referred for [facility] for stem cell transplant. Low bacteria diet: 100 % po's 5'2" 68.8 kg BMI: 27.6 Est needs: [id number] david (25-30 david/kg) 103-123 g pro (1.5-1.8 gpro/kg) andoff - Sujata Flores, RN - 04/15/2019 9:29 PM PDTNursing Handoff [place] IP NURSE HANDOFF: [facility] course events: Primary Diagnosis: MDS Transplant: Double Cord Day -7 Chemo: Gamida trial- JJA-Kflcdskygdf-Uwfjvfamsqnekuzs + TBI PMH: Herpes Zoster Psych/Social: Stephenie is , and lives in [place] on her niece's property. Stephenie [place] to [place] earlier this [place] family when she learned she was ill. Her main family is a brother in the [place] and her sister's daughter in [place]. Her sister has dementia and lives nearby in assisted living. Good friend Susan will be lana estrella. Advance Care Planning: Stephenie wants her niece to be her medical decision maker. She has AD paperwork and is working on it. Hospital Events: SAFETY Patient/Family Target: Stephenie will not fall As evidenced by: Falls and mobility: Stephenie is independent at this time Mental status changes: Other: Progress to Target: No Change As evidenced by: Mild pain from groshong placement. Decline intervention at this time As evidenced by: Skin: S/s of infection: Bathing issues: Central line issues: Other: Recommendations Forward: Orders to follow up on: Labs still due: Replacements needed: n/a Anticipated or pending procedures: Symptom management (next dose of pain/nausea meds, etc): Education needed: Other: hemotherapy - Sujata Flores, CARRIE - 04/15/2019 9:17 PM PDTChemotherapy Drug Administration Note: Fludarabine at a dose of 42.5Mg IV in 101.7 ml of Normal saline administered at a rate of 2 03.4 ml/hr. The infusion lasted 30 minutes. The drug was infused through venous access dev ice groshong located in the left chest wall with no redness, swelling, or itching noted at t he site during the infusion. Blood return obtained prior to infusion, every and at the end of infusion. Reviewed possible side effects. No immediate reaction or adverse effects noted at this lazara e, will continue to monitor. Start time:2014 End time:2044 Total volume: 101.7 ml h emotherapy - April Schaffer RN - 04/15/2019 6:40 PM PDTChemotherapy Drug Administration No te: Cyclophosphamide at a dose of 3000 Mg IV in 1000 ml of Normal saline administered at a rate of 250 ml/hr. The infusion will last 2 hours. The drug was infused through venous access device groshong located in the left chest with no redness, swelling, or itching noted at the site during the infusion. Blood return obtained prior to infusion and at the end of infusi on.. Taught patient about the risk for nausea/vomiting, neutropenia, anemia, thrombocytopenia, d iarrhea, alopecia, fatigue and hemorrhagic cystitis. No reaction or adverse effects noted a t this time, will continue to monitor. andoff - April Schaffer RN - 04/15/2019 4:05 PM PDTNursing Handoff [facility] IP NURSE HANDOFF: [facility] course events: Primary Diagnosis: MDS Transplant: Double Cord Day -7 Chemo: Gamida trial- HLD-Mjkzbyuumdd-Kezbpnijvwdgoeya + TBI PMH: Herpes Zoster Psych/Social: Stephenie is , and lives in [place] on her niece's property. Stephenie [place] to [place] earlier this year [place] be [place] family when she learned she was ill. [place] her sister's daughter in [place]. Her sister has dementia and lives nearby in assisted living. Good friend Susan will be c aregijaxon. Advance Care Planning: Stephenie wants her niece to be her medical decision maker. She has AD paperwork and is working on it. Hospital Events: SAFETY Patient/Family Target: Stephenie will not fall As evidenced by: Falls and mobility: Stephenie is independent at this time Mental status changes: Other: As evidenced by: Skin: S/s of infection: Bathing issues: Central line issues: Other: Recommendations Forward: Orders to follow up on: Labs still due: Replacements needed: Anticipated or pending procedures: Symptom management (next dose of pain/nausea meds, etc): Education needed: Other: andoff - Brittani Mitchell RN - 04/15/2019 11:45 AM PDT Interventional Radiology Procedure Nursing Handoff Note Procedure: Groshong double lumen placement Interventional Radiology Attending: Tanmay Sood MD Interventional Radiology MD (Fellow)/[place]: [place] [phone] Anesthesia MD/STREETCAR REPAIRER HELPER, pager : [phone] Medications: Pre meds (given in PCU / Floor): 2 L NS started in PCU 500/h Procedure Meds: Fentanyl IV 100 mcg Midazolam IV 2 mg Access site(s): L IJ Closure device: Antimicrobial disc, specialty dressing Events: Pt. Tolerated procedure well Pt. location prior to IR: PCU Pt. Disposition and /or recovery post IR Procedure: PCU documented in this e ncounter Plan of Treatment + + +--------+ + + | Name | Type | Priori | Associated Diagnoses | Date/Time | | | | ty | | | + + +--------+ + + | TRANSFUSE PLATELET | Nursing | Routin | | 05/12/2019 9:42 AM | | PHERESIS, | Transfuse | e | | PST | | LEUKOREDUCED | | | | | + + +--------+ + + + + +--------+ + + | Name | Type | Priori | Associated Diagnoses | Order Schedule | | | | ty | | | + + +--------+ + + | RBC MORPHOLOGY | Lab - | Routin | | 04/19/2019 until | | | [facility] | e | | discontinued, 1 | | | Performable | | | completed | | | s | | | | + + +--------+ + + | RBC MORPHOLOGY | Lab - | Routin | MDS | 04/19/2019 until | | | [facility] | e | (myelodysplastic | discontinued, 1 | | | Performable | | syndrome) ([facility]) | completed | | | s | | | | + + +--------+ + + | RBC MORPHOLOGY | Lab - | Routin | MDS | 04/20/2019 until | | | [facility] | e | (myelodysplastic | discontinued, 1 | | | Performable | | syndrome) ([facility]) | completed | | | s | | | | + + +--------+ + + | RBC MORPHOLOGY | Lab - | Routin | | 04/21/2019 until | | | [facility] | e | | discontinued, 1 | | | Performable | | | completed | | | s | | | | + + +--------+ + + | MANUAL DIFFERENTIAL | Lab - | Routin | MDS | 04/21/2019 until | | | [facility] | e | (myelodysplastic | discontinued, 1 | | | Performable | | syndrome) ([facility]) | completed | | | s | | | | + + +--------+ + + | RBC MORPHOLOGY | Lab - | Routin | MDS | 04/21/2019 until | | | [facility] | e | (myelodysplastic | discontinued, 1 | | | Performable |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) | completed | | | s | | | | + + +--------+ + + | MANUAL DIFFERENTIAL | Lab - | Routin | | 04/22/2019 until | | | [facility] | e | | discontinued, 1 | | | Performable | | | completed | | | s | | | | + + +--------+ + + | RBC MORPHOLOGY | Lab - | Routin | | 04/22/2019 until | | | [facility] | e | | discontinued, 1 | | | Performable | | | completed | | | s | | | | + + +--------+ + + | CULTURE, SPUTUM | Lab | Routin | | As Needed for 1 | | | | e | | Occurrences starting | | | | | | 04/26/2019 | + + +--------+ + + | BLOOD CULTURE WORKUP | Lab - | Routin | | 04/29/2019 until | | | [facility] | e | | discontinued, 1 | | | Performable | | | completed | | | s | | | | + + +--------+ + + | BLOOD CULTURE WORKUP | Lab - | Routin | | 04/29/2019 until | | | [facility] | e | | discontinued, 1 | | | Performable | | | completed | | | s | | | | + + +--------+ + + | MANUAL DIFFERENTIAL | Lab - | Routin | | 05/09/2019 until | | | [facility] | e | | discontinued, 1 | | | Performable | | | completed | | | s | | | | + + +--------+ + + | RBC MORPHOLOGY | Lab - | Routin | | 05/10/2019 until | | | [facility] | e | | discontinued, 1 | | | Performable | | | completed | | | s | | | | + + +--------+ + + | RBC MORPHOLOGY | Lab - | Routin | | 05/11/2019 until | | | [facility] | e | | discontinued, 1 | | | Performable | | | completed | | | s | | | | + + +--------+ + + | MANUAL DIFFERENTIAL | Lab - | Routin | | 05/12/2019 until | | | [facility] | e | | discontinued, 1 | | | Performable | | | completed | | | s | | | | + + +--------+ + + | RBC MORPHOLOGY | Lab - | Routin | | 05/12/2019 until | | | [facility] | e | | discontinued, 1 | | | Performable | | | completed | | | s | | | | + + +--------+ + + | RBC MORPHOLOGY | Lab - | Routin | | 05/13/2019 until | | | [facility] | e | | discontinued, 1 | | | Performable | | | completed | | | s | | | | + + +--------+ + + | MANUAL DIFFERENTIAL | Lab - | Routin | | 05/14/2019 until | | | [facility] | e | | discontinued, 1 | | | Performable | | | completed | | | s | | | | + + +--------+ + + | RBC MORPHOLOGY | Lab - | Routin | | 05/14/2019 until | | | [facility] | e | | discontinued, 1 | | | Performable | | | completed | | | s | | | | + + +--------+ + + | MANUAL DIFFERENTIAL | Lab - | Routin | | 05/16/2019 until | | | [facility] | e | | discontinued, 1 | | | Performable | | | completed | | | s | | | | + + +--------+ + + | RBC MORPHOLOGY | Lab - | Routin | | 05/16/2019 until | | | [facility] | e | | discontinued, 1 | | | Performable | | | completed | | | s | | | | + + +--------+ + + | RBC MORPHOLOGY | Lab - | Routin | | 05/17/2019 until | | | [facility] | e | | discontinued, 1 | | | Performable | | | completed | | | s | | | | + + +--------+ + + | MANUAL DIFFERENTIAL | Lab - | Routin | | 05/18/2019 until | | | [facility] | e | | discontinued, 1 | | | Performable | | | completed | | | s | | | | + + +--------+ + + | RBC MORPHOLOGY | Lab - | Routin | | 05/18/2019 until | | | [facility] | e | | discontinued, 1 | | | Performable | | | completed | | | s | | | | + + +--------+ + + | VRE (PENNIE) BY PCR | Lab | Routin | | One Time for 1 | | | | e | | Occurrences starting | | | | | | 05/18/2019 until | | | | | | 05/18/2019 | + + +--------+ + + documented as of this encounter Procedures + +--------+ + + + | Procedure Name | Priori | Date/Time | Associated Diagnosis | Comments | | | ty | | | | + +--------+ + + + | TACROLIMUS, WHOLE | Routin | 05/18/2019 | | Results for this | | BLOOD | e | 9:00 AM | | procedure are in the | | | | PST | | results section. | + +--------+ + + + | RBC MORPHOLOGY | Routin | 05/18/2019 | | Results for this | | | e | 12:35 AM | | procedure are in the | | | | PST | | results section. | + +--------+ + + + | CBC AND AUTO DIFF | Routin | 05/18/2019 | | Results for this | | | e | 12:35 AM | | procedure are in the | | | | PST | | results section. | + +--------+ + + + | MANUAL DIFFERENTIAL | Routin | 05/18/2019 | | Results for this | | | e | 12:35 AM | | procedure are in the | | | | PST | | results section. | + +--------+ + + + | CBC, WITH | Routin | 05/18/2019 | | Results for this | | DIFFERENTIAL | e | 12:35 AM | | procedure are in the | | | | PST | | results section. | + +--------+ + + + | COMPLETE METABOLIC | Routin | 05/18/2019 | | Results for this | | SET | e | 12:35 AM | | procedure are in the | | (NA,K,CL,CO2,BUN,CRE | | PST | | results section. | | AT,GLUC,CA,AST,ALT,B | | | | | | TI TOTAL,ALK | | | | | | PHOS,ALB,PROT TOTAL) | | | | | + +--------+ + + + | PHOSPHORUS, PLASMA | Routin | 05/18/2019 | | Results for this | | | e | 12:35 AM | | procedure are in the | | | | PST | | results section. | + +--------+ + + + | MAGNESIUM, PLASMA | Routin | 05/18/2019 | MDS | Results for this | | | e | 12:35 AM | (myelodysplastic | procedure are in the | | | | PST | syndrome) ([facility]) | results section. | + +--------+ + + + | TRANSFUSE PLATELET | Routin | 05/17/2019 | | | | PHERESIS, | e | 5:24 PM | | | | LEUKOREDUCED | | PST | | | + +--------+ + + + | RBC MORPHOLOGY | Routin | 05/17/2019 | | Results for this | | | e | 12:01 AM | | procedure are in the | | | | PST | | results section. | + +--------+ + + + | CBC AND AUTO DIFF | Routin | 05/17/2019 | | Results for this | | | e | 12:01 AM | | procedure are in the | | | | PST | | results section. | + +--------+ + + + | CBC, WITH | Routin | 05/17/2019 | | Results for this | | DIFFERENTIAL | e | 12:01 AM | | procedure are in the | | | | PST | | results section. | + +--------+ + + + | COMPLETE METABOLIC | Routin | 05/17/2019 | | Results for this | | SET | e | 12:01 AM | | procedure are in the | | (NA,K,CL,CO2,BUN,CRE | | PST | | results section. | | AT,GLUC,CA,AST,ALT,B | | | | | | TI TOTAL,ALK | | | | | | PHOS,ALB,PROT TOTAL) | | | | | + +--------+ + + + | PHOSPHORUS, PLASMA | Routin | 05/17/2019 | | Results for this | | | e | 12:01 AM | | procedure are in the | | | | PST | | results section. | + +--------+ + + + | MAGNESIUM, PLASMA | Routin | 05/17/2019 | MDS | Results for this | | | e | 12:01 AM | (myelodysplastic | procedure are in the | | | | PST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) | results section. | + +--------+ + + + | PRODUCT - PLATELET | Routin | 05/16/2019 | | Results for this | | PHERESIS | e | 7:14 PM | | procedure are in the | | LEUKOREDUCED | | PST | | results section. | + +--------+ + + + | HB-LAB PROCESS, IRR | Routin | 05/16/2019 | | Results for this | | LR PLT PHER A | e | 7:14 PM | | procedure are in the | | | | PST | | results section. | + +--------+ + + + | RBC MORPHOLOGY | Routin | 05/16/2019 | | Results for this | | | e | 12:10 AM | | procedure are in the | | | | PST | | results section. | + +--------+ + + + | CBC AND AUTO DIFF | Routin | 05/16/2019 | | Results for this | | | e | 12:10 AM | | procedure are in the | | | | PST | | results section. | + +--------+ + + + | MANUAL DIFFERENTIAL | Routin | 05/16/2019 | | Results for this | | | e | 12:10 AM | | procedure are in the | | | | PST | | results section. | + +--------+ + + + | CMV PCR | Routin | 05/16/2019 | MDS | Results for this | | QUANTITATION, PLASMA | e | 12:10 AM | (myelodysplastic | procedure are in the | | | | PST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) | results section. | + +--------+ + + + | INR | Routin | 05/16/2019 | | Results for this | | | e | 12:10 AM | | procedure are in the | | | | PST | | results section. | + +--------+ + + + | CBC, WITH | Routin | 05/16/2019 | | Results for this | | DIFFERENTIAL | e | 12:10 AM | | procedure are in the | | | | PST | | results section. | + +--------+ + + + | COMPLETE METABOLIC | Routin | 05/16/2019 | | Results for this | | SET | e | 12:10 AM | | procedure are in the | | (NA,K,CL,CO2,BUN,CRE | | PST | | results section. | | AT,GLUC,CA,AST,ALT,B | | | | | | TI TOTAL,ALK | | | | | | PHOS,ALB,PROT TOTAL) | | | | | + +--------+ + + + | PHOSPHORUS, PLASMA | Routin | 05/16/2019 | | Results for this | | | e | 12:10 AM | | procedure are in the | | | | PST | | results section. | + +--------+ + + + | ASPERGILLUS | Routin | 05/16/2019 | | Results for this | | GALACTOMANNAN | e | 12:10 AM | | procedure are in the | | ANTIGEN, SERUM | | PST | | results section. | + +--------+ + + + | MAGNESIUM, PLASMA | Routin | 05/16/2019 | MDS | Results for this | | | e | 12:10 AM | (myelodysplastic | procedure are in the | | | | PST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) | results section. | + +--------+ + + + | LDH TOTAL, PLASMA | Routin | 05/16/2019 | | Results for this | | | e | 12:10 AM | | procedure are in the | | | | PST | | results section. | + +--------+ + + + | TRANSFUSE RED CELLS, | Routin | 05/15/2019 | | | | LEUKOREDUCED | e | 10:12 AM | | | | | | PST | | | + +--------+ + + + | TACROLIMUS, WHOLE | Routin | 05/15/2019 | | Results for this | | BLOOD | e | 8:13 AM | | procedure are in the | | | | PST | | results section. | + +--------+ + + + | TRANSFUSE PLATELET | Routin | 05/15/2019 | | | | PHERESIS, | e | 6:25 AM | | | | LEUKOREDUCED | | PST | | | + +--------+ + + + | HB-LAB | Routin | 05/15/2019 | | Results for this | | CROSSMATCH,ELECTRONI | e | 1:53 AM | | procedure are in the | | C | | PST | | results section. | + +--------+ + + + | CBC AND AUTO DIFF | Routin | 05/15/2019 | | Results for this | | | e | 12:04 AM | | procedure are in the | | | | PST | | results section. | + +--------+ + + + | CBC, WITH | Routin | 05/15/2019 | | Results for this | | DIFFERENTIAL | e | 12:04 AM | | procedure are in the | | | | PST | | results section. | + +--------+ + + + | COMPLETE METABOLIC | Routin | 05/15/2019 | | Results for this | | SET | e | 12:04 AM | | procedure are in the | | (NA,K,CL,CO2,BUN,CRE | | PST | | results section. | | AT,GLUC,CA,AST,ALT,B | | | | | | TI TOTAL,ALK | | | | | | PHOS,ALB,PROT TOTAL) | | | | | + +--------+ + + + | PHOSPHORUS, PLASMA | Routin | 05/15/2019 | | Results for this | | | e | 12:04 AM | | procedure are in the | | | | PST | | results section. | + +--------+ + + + | MAGNESIUM, PLASMA | Routin | 05/15/2019 | MDS | Results for this | | | e | 12:04 AM | (myelodysplastic | procedure are in the | | | | PST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) | results section. | + +--------+ + + + | TRANSFUSE PLATELET | Routin | 05/14/2019 | | | | PHERESIS, | e | 6:50 AM | | | | LEUKOREDUCED | | PST | | | + +--------+ + + + | RBC MORPHOLOGY | Routin | 05/14/2019 | | Results for this | | | e | 12:14 AM | | procedure are in the | | | | PST | | results section. | + +--------+ + + + | CBC AND AUTO DIFF | Routin | 05/14/2019 | | Results for this | | | e | 12:14 AM | | procedure are in the | | | | PST | | results section. | + +--------+ + + + | MANUAL DIFFERENTIAL | Routin | 05/14/2019 | | Results for this | | | e | 12:14 AM | | procedure are in the | | | | PST | | results section. | + +--------+ + + + | VERITO-SEVILLA VIRUS | Routin | 05/14/2019 | | Results for this | | PCR, PLASMA | e | 12:14 AM | | procedure are in the | | | | PST | | results section. | + +--------+ + + + | CBC, WITH | Routin | 05/14/2019 | | Results for this | | DIFFERENTIAL | e | 12:14 AM | | procedure are in the | | | | PST | | results section. | + +--------+ + + + | COMPLETE METABOLIC | Routin | 05/14/2019 | | Results for this | | SET | e | 12:14 AM | | procedure are in the | | (NA,K,CL,CO2,BUN,CRE | | PST | | results section. | | AT,GLUC,CA,AST,ALT,B | | | | | | TI TOTAL,ALK | | | | | | PHOS,ALB,PROT TOTAL) | | | | | + +--------+ + + + | ANTIBODY SCREEN | Routin | 05/14/2019 | | Results for this | | | e | 12:14 AM | | procedure are in the | | | | PST | | results section. | + +--------+ + + + | TYPE AND SCREEN | Routin | 05/14/2019 | | Results for this | | | e | 12:14 AM | | procedure are in the | | | | PST | | results section. | + +--------+ + + + | ABO & RH TYPE | Routin | 05/14/2019 | | Results for this | | | e | 12:14 AM | | procedure are in the | | | | PST | | results section. | + +--------+ + + + | PHOSPHORUS, PLASMA | Routin | 05/14/2019 | | Results for this | | | e | 12:14 AM | | procedure are in the | | | | PST | | results section. | + +--------+ + + + | MAGNESIUM, PLASMA | Routin | 05/14/2019 | MDS | Results for this | | | e | 12:14 AM | (myelodysplastic | procedure are in the | | | | PST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) | results section. | + +--------+ + + + | HUMAN HERPES VIRUS 6 | Routin | 05/14/2019 | MDS | Results for this | | PCR (PLASMA OR CSF) | e | 12:14 AM | (myelodysplastic | procedure are in the | | | | PST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) | results section. | + +--------+ + + + | RESPIRATORY PATHOGEN | Routin | 05/13/2019 | | Results for this | | PANEL PCR | e | 3:39 PM | | procedure are in the | | | | PST | | results section. | + +--------+ + + + | CHIMERISM SORTED | Routin | 05/13/2019 | | Results for this | | CELLS, DNA, BLOOD | e | 3:39 PM | | procedure are in the | | ([facility]) | | PST | | results section. | + +--------+ + + + | CHIMERISM SORTED | Routin | 05/13/2019 | | Results for this | | CELLS, DNA, BLOOD | e | 3:39 PM | | procedure are in the | | | | PST | | results section. | + +--------+ + + + | CMV PCR | Routin | 05/13/2019 | | Results for this | | QUANTITATION, PLASMA | e | 3:39 PM | | procedure are in the | | | | PST | | results section. | + +--------+ + + + | POTASSIUM, PLASMA | Routin | 05/13/2019 | | Results for this | | | e | 11:26 AM | | procedure are in the | | | | PST | | results section. | + +--------+ + + + | PHOSPHORUS, PLASMA | Routin | 05/13/2019 | | Results for this | | | e | 11:26 AM | | procedure are in the | | | | PST | | results section. | + +--------+ + + + | MAGNESIUM, PLASMA | Routin | 05/13/2019 | | Results for this | | | e | 11:26 AM | | procedure are in the | | | | PST | | results section. | + +--------+ + + + | RBC MORPHOLOGY | Routin | 05/13/2019 | | Results for this | | | e | 12:01 AM | | procedure are in the | | | | PST | | results section. | + +--------+ + + + | CBC AND AUTO DIFF | Routin | 05/13/2019 | | Results for this | | | e | 12:01 AM | | procedure are in the | | | | PST | | results section. | + +--------+ + + + | CBC, WITH | Routin | 05/13/2019 | | Results for this | | DIFFERENTIAL | e | 12:01 AM | | procedure are in the | | | | PST | | results section. | + +--------+ + + + | COMPLETE METABOLIC | Routin | 05/13/2019 | | Results for this | | SET | e | 12:01 AM | | procedure are in the | | (NA,K,CL,CO2,BUN,CRE | | PST | | results section. | | AT,GLUC,CA,AST,ALT,B | | | | | | TI TOTAL,ALK | | | | | | PHOS,ALB,PROT TOTAL) | | | | | + +--------+ + + + | PHOSPHORUS, PLASMA | Routin | 05/13/2019 | | Results for this | | | e | 12:01 AM | | procedure are in the | | | | PST | | results section. | + +--------+ + + + | MAGNESIUM, PLASMA | Routin | 05/13/2019 | MDS | Results for this | | | e | 12:01 AM | (myelodysplastic | procedure are in the | | | | PST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) | results section. | + +--------+ + + + | CK, PLASMA | Routin | 05/12/2019 | | Results for this | | | e | 1:39 PM | | procedure are in the | | | | PST | | results section. | + +--------+ + + + | TRANSFUSE PLATELET | Routin | 05/12/2019 | | | | PHERESIS, | e | 12:16 PM | | | | LEUKOREDUCED | | PST | | | + +--------+ + + + | HB-LAB PROCESS, IRR | Routin | 05/12/2019 | | Results for this | | LR PLT PHER A | e | 2:08 AM | | procedure are in the | | | | PST | | results section. | + +--------+ + + + | RBC MORPHOLOGY | Routin | 05/12/2019 | | Results for this | | | e | 12:21 AM | | procedure are in the | | | | PST | | results section. | + +--------+ + + + | CBC AND AUTO DIFF | Routin | 05/12/2019 | | Results for this | | | e | 12:21 AM | | procedure are in the | | | | PST | | results section. | + +--------+ + + + | MANUAL DIFFERENTIAL | Routin | 05/12/2019 | | Results for this | | | e | 12:21 AM | | procedure are in the | | | | PST | | results section. | + +--------+ + + + | CBC, WITH | Routin | 05/12/2019 | | Results for this | | DIFFERENTIAL | e | 12:21 AM | | procedure are in the | | | | PST | | results section. | + +--------+ + + + | COMPLETE METABOLIC | Routin | 05/12/2019 | | Results for this | | SET | e | 12:21 AM | | procedure are in the | | (NA,K,CL,CO2,BUN,CRE | | PST | | results section. | | AT,GLUC,CA,AST,ALT,B | | | | | | TI TOTAL,ALK | | | | | | PHOS,ALB,PROT TOTAL) | | | | | + +--------+ + + + | PHOSPHORUS, PLASMA | Routin | 05/12/2019 | | Results for this | | | e | 12:21 AM | | procedure are in the | | | | PST | | results section. | + +--------+ + + + | MAGNESIUM, PLASMA | Routin | 05/12/2019 | MDS | Results for this | | | e | 12:21 AM | (myelodysplastic | procedure are in the | | | | PST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) | results section. | + +--------+ + + + | LDH TOTAL, PLASMA | Routin | 05/12/2019 | | Results for this | | | e | 12:21 AM | | procedure are in the | | | | PST | | results section. | + +--------+ + + + | X-RAY CHEST 2 VIEW | Routin | 05/11/2019 | | Results for this | | | e | 12:41 PM | | procedure are in the | | | | PST | | results section. | + +--------+ + + + | CULTURE, URINE [facility] | Routin | 05/11/2019 | | Results for this | | | e | 12:35 PM | | procedure are in the | | | | PST | | results section. | + +--------+ + + + | UA, DIPSTICK ONLY | Routin | 05/11/2019 | | Results for this | | | e | 12:35 PM | | procedure are in the | | | | PST | | results section. | + +--------+ + + + | URINE, MICROSCOPIC | Routin | 05/11/2019 | | Results for this | | EXAM | e | 12:35 PM | | procedure are in the | | | | PST | | results section. | + +--------+ + + + | CULTURE, URINE BACTI | Routin | 05/11/2019 | | Results for this | | | e | 12:35 PM | | procedure are in the | | | | PST | | results section. | + +--------+ + + + | PRODUCT - PLATELET | Routin | 05/11/2019 | | Results for this | | PHERESIS | e | 12:11 PM | | procedure are in the | | LEUKOREDUCED | | PST | | results section. | + +--------+ + + + | HB-LAB PROCESS, IRR | Routin | 05/11/2019 | | Results for this | | LR PLT PHER A | e | 12:11 PM | | procedure are in the | | | | PST | | results section. | + +--------+ + + + | CULTURE, BLOOD BACTI | Routin | 05/11/2019 | | Results for this | | & YEAST [facility] | e | 11:40 AM | | procedure are in the | | | | PST | | results section. | + +--------+ + + + | CULTURE, BLOOD BACTI | Routin | 05/11/2019 | | Results for this | | & YEAST | e | 11:40 AM | | procedure are in the | | | | PST | | results section. | + +--------+ + + + | CULTURE, BLOOD BACTI | Routin | 05/11/2019 | | Results for this | | & YEAST [facility] | e | 11:35 AM | | procedure are in the | | | | PST | | results section. | + +--------+ + + + | CULTURE, BLOOD BACTI | Routin | 05/11/2019 | | Results for this | | & YEAST | e | 11:35 AM | | procedure are in the | | | | PST | | results section. | + +--------+ + + + | TACROLIMUS, WHOLE | Routin | 05/11/2019 | | Results for this | | BLOOD | e | 9:22 AM | | procedure are in the | | | | PST | | results section. | + +--------+ + + + | TRANSFUSE PLATELET | Routin | 05/11/2019 | | | | PHERESIS, | e | 6:53 AM | | | | LEUKOREDUCED | | PST | | | + +--------+ + + + | HB-LAB PROCESS, IRR | Routin | 05/11/2019 | | Results for this | | LR PLT PHER A | e | 1:37 AM | | procedure are in the | | | | PST | | results section. | + +--------+ + + + | RBC MORPHOLOGY | Routin | 05/11/2019 | | Results for this | | | e | 1:04 AM | | procedure are in the | | | | PST | | results section. | + +--------+ + + + | CBC AND AUTO DIFF | Routin | 05/11/2019 | | Results for this | | | e | 1:04 AM | | procedure are in the | | | | PST | | results section. | + +--------+ + + + | CBC, WITH | Routin | 05/11/2019 | | Results for this | | DIFFERENTIAL | e | 1:04 AM | | procedure are in the | | | | PST | | results section. | + +--------+ + + + | COMPLETE METABOLIC | Routin | 05/11/2019 | | Results for this | | SET | e | 1:03 AM | | procedure are in the | | (NA,K,CL,CO2,BUN,CRE | | PST | | results section. | | AT,GLUC,CA,AST,ALT,B | | | | | | TI TOTAL,ALK | | | | | | PHOS,ALB,PROT TOTAL) | | | | | + +--------+ + + + | PHOSPHORUS, PLASMA | Routin | 05/11/2019 | | Results for this | | | e | 1:03 AM | | procedure are in the | | | | PST | | results section. | + +--------+ + + + | MAGNESIUM, PLASMA | Routin | 05/11/2019 | MDS | Results for this | | | e | 1:03 AM | (myelodysplastic | procedure are in the | | | | PST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) | results section. | + +--------+ + + + | TRANSFUSE PLATELET | Routin | 05/10/2019 | | | | PHERESIS, | e | 4:13 PM | | | | LEUKOREDUCED | | PST | | | + +--------+ + + + | RBC MORPHOLOGY | Routin | 05/10/2019 | | Results for this | | | e | 12:30 AM | | procedure are in the | | | | PST | | results section. | + +--------+ + + + | CBC AND AUTO DIFF | Routin | 05/10/2019 | | Results for this | | | e | 12:30 AM | | procedure are in the | | | | PST | | results section. | + +--------+ + + + | CBC, WITH | Routin | 05/10/2019 | | Results for this | | DIFFERENTIAL | e | 12:30 AM | | procedure are in the | | | | PST | | results section. | + +--------+ + + + | COMPLETE METABOLIC | Routin | 05/10/2019 | | Results for this | | SET | e | 12:30 AM | | procedure are in the | | (NA,K,CL,CO2,BUN,CRE | | PST | | results section. | | AT,GLUC,CA,AST,ALT,B | | | | | | TI TOTAL,ALK | | | | | | PHOS,ALB,PROT TOTAL) | | | | | + +--------+ + + + | PHOSPHORUS, PLASMA | Routin | 05/10/2019 | | Results for this | | | e | 12:30 AM | | procedure are in the | | | | PST | | results section. | + +--------+ + + + | MAGNESIUM, PLASMA | Routin | 05/10/2019 | MDS | Results for this | | | e | 12:30 AM | (myelodysplastic | procedure are in the | | | | PST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) | results section. | + +--------+ + + + | PRATIMA-IRLANDA Clay) | Routin | 05/09/2019 | | Results for this | | BY PCR DNA AMP PROBE | e | 7:57 PM | | procedure are in the | | | | PST | | results section. | + +--------+ + + + | PRODUCT - PLATELET | Routin | 05/09/2019 | | Results for this | | PHERESIS | e | 1:50 AM | | procedure are in the | | LEUKOREDUCED | | PST | | results section. | + +--------+ + + + | HB-LAB PROCESS, IRR | Routin | 05/09/2019 | | Results for this | | LR PLT PHER A | e | 1:50 AM | | procedure are in the | | | | PST | | results section. | + +--------+ + + + | CBC AND AUTO DIFF | Routin | 05/09/2019 | | Results for this | | | e | 12:47 AM | | procedure are in the | | | | PST | | results section. | + +--------+ + + + | MANUAL DIFFERENTIAL | Routin | 05/09/2019 | | Results for this | | | e | 12:47 AM | | procedure are in the | | | | PST | | results section. | + +--------+ + + + | INR | Routin | 05/09/2019 | | Results for this | | | e | 12:47 AM | | procedure are in the | | | | PST | | results section. | + +--------+ + + + | CBC, WITH | Routin | 05/09/2019 | | Results for this | | DIFFERENTIAL | e | 12:47 AM | | procedure are in the | | | | PST | | results section. | + +--------+ + + + | COMPLETE METABOLIC | Routin | 05/09/2019 | | Results for this | | SET | e | 12:47 AM | | procedure are in the | | (NA,K,CL,CO2,BUN,CRE | | PST | | results section. | | AT,GLUC,CA,AST,ALT,B | | | | | | TI TOTAL,ALK | | | | | | PHOS,ALB,PROT TOTAL) | | | | | + +--------+ + + + | PHOSPHORUS, PLASMA | Routin | 05/09/2019 | | Results for this | | | e | 12:47 AM | | procedure are in the | | | | PST | | results section. | + +--------+ + + + | ASPERGILLUS | Routin | 05/09/2019 | | Results for this | | GALACTOMANNAN | e | 12:47 AM | | procedure are in the | | ANTIGEN, SERUM | | PST | | results section. | + +--------+ + + + | MAGNESIUM, PLASMA | Routin | 05/09/2019 | MDS | Results for this | | | e | 12:47 AM | (myelodysplastic | procedure are in the | | | | PST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) | results section. | + +--------+ + + + | LDH TOTAL, PLASMA | Routin | 05/09/2019 | | Results for this | | | e | 12:47 AM | | procedure are in the | | | | PST | | results section. | + +--------+ + + + | COMPLETE METABOLIC | Routin | 05/08/2019 | | Results for this | | SET | e | 2:59 PM | | procedure are in the | | (NA,K,CL,CO2,BUN,CRE | | PST | | results section. | | AT,GLUC,CA,AST,ALT,B | | | | | | TI TOTAL,ALK | | | | | | PHOS,ALB,PROT TOTAL) | | | | | + +--------+ + + + | TACROLIMUS, WHOLE | Routin | 05/08/2019 | | Results for this | | BLOOD | e | 8:30 AM | | procedure are in the | | | | PST | | results section. | + +--------+ + + + | CBC AND AUTO DIFF | Routin | 05/07/2019 | | Results for this | | | e | 11:34 PM | | procedure are in the | | | | PST | | results section. | + +--------+ + + + | CBC, WITH | Routin | 05/07/2019 | | Results for this | | DIFFERENTIAL | e | 11:34 PM | | procedure are in the | | | | PST | | results section. | + +--------+ + + + | COMPLETE METABOLIC | Routin | 05/07/2019 | | Results for this | | SET | e | 11:34 PM | | procedure are in the | | (NA,K,CL,CO2,BUN,CRE | | PST | | results section. | | AT,GLUC,CA,AST,ALT,B | | | | | | TI TOTAL,ALK | | | | | | PHOS,ALB,PROT TOTAL) | | | | | + +--------+ + + + | PHOSPHORUS, PLASMA | Routin | 05/07/2019 | | Results for this | | | e | 11:34 PM | | procedure are in the | | | | PST | | results section. | + +--------+ + + + | MAGNESIUM, PLASMA | Routin | 05/07/2019 | MDS | Results for this | | | e | 11:34 PM | (myelodysplastic | procedure are in the | | | | PST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) | results section. | + +--------+ + + + | TRANSFUSE PLATELET | Routin | 05/07/2019 | | | | PHERESIS, | e | 10:29 PM | | | | LEUKOREDUCED | | PST | | | + +--------+ + + + | COMPLETE METABOLIC | Routin | 05/07/2019 | | Results for this | | SET | e | 2:30 PM | | procedure are in the | | (NA,K,CL,CO2,BUN,CRE | | PST | | results section. | | AT,GLUC,CA,AST,ALT,B | | | | | | TI TOTAL,ALK | | | | | | PHOS,ALB,PROT TOTAL) | | | | | + +--------+ + + + | TRANSFUSE RED CELLS, | Routin | 05/07/2019 | | | | LEUKOREDUCED | e | 9:27 AM | | | | | | PST | | | + +--------+ + + + | ANTIBODY SCREEN | Routin | 05/07/2019 | | Results for this | | | e | 2:32 AM | | procedure are in the | | | | PST | | results section. | + +--------+ + + + | TYPE AND SCREEN | Routin | 05/07/2019 | | Results for this | | | e | 2:32 AM | | procedure are in the | | | | PST | | results section. | + +--------+ + + + | ABO & RH TYPE | Routin | 05/07/2019 | | Results for this | | | e | 2:32 AM | | procedure are in the | | | | PST | | results section. | + +--------+ + + + | HB-LAB PROCESS, IRR | Routin | 05/07/2019 | | Results for this | | LR PLT PHER A | e | 2:30 AM | | procedure are in the | | | | PST | | results section. | + +--------+ + + + | HB-LAB | Routin | 05/07/2019 | | Results for this | | CROSSMATCH,ELECTRONI | e | 2:30 AM | | procedure are in the | | C | | PST | | results section. | + +--------+ + + + | CBC AND AUTO DIFF | Routin | 05/07/2019 | | Results for this | | | e | 12:38 AM | | procedure are in the | | | | PST | | results section. 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 | + +--------+ + + + | CBC, WITH | Routin | 05/07/2019 | | Results for this | | DIFFERENTIAL | e | 12:38 AM | | procedure are in the | | | | PST | | results section. | + +--------+ + + + | COMPLETE METABOLIC | Routin | 05/07/2019 | | Results for this | | SET | e | 12:38 AM | | procedure are in the | | (NA,K,CL,CO2,BUN,CRE | | PST | | results section. | | AT,GLUC,CA,AST,ALT,B | | | | | | TI TOTAL,ALK | | | | | | PHOS,ALB,PROT TOTAL) | | | | | + +--------+ + + + | PHOSPHORUS, PLASMA | Routin | 05/07/2019 | | Results for this | | | e | 12:38 AM | | procedure are in the | | | | PST | | results section. | + +--------+ + + + | MAGNESIUM, PLASMA | Routin | 05/07/2019 | MDS | Results for this | | | e | 12:38 AM | (myelodysplastic | procedure are in the | | | | PST | syndrome) ([facility]) | results section. | + +--------+ + + + | HUMAN HERPES VIRUS 6 | Routin | 05/07/2019 | MDS | Results for this | | PCR (PLASMA OR CSF) | e | 12:38 AM | (myelodysplastic | procedure are in the | | | | PST | syndrome) ([facility]) | results section. | + +--------+ + + + | COMPLETE METABOLIC | Routin | 05/06/2019 | | Results for this | | SET | e | 1:46 PM | | procedure are in the | | (NA,K,CL,CO2,BUN,CRE | | PST | | results section. | | AT,GLUC,CA,AST,ALT,B | | | | | | TI TOTAL,ALK | | | | | | PHOS,ALB,PROT TOTAL) | | | | | + +--------+ + + + | TRANSFUSE PLATELET | Routin | 05/06/2019 | | | | PHERESIS, | e | 6:55 AM | | | | LEUKOREDUCED | | PST | | | + +--------+ + + + | PRODUCT - PLATELET | Routin | 05/06/2019 | | Results for this | | PHERESIS | e | 4:48 AM | | procedure are in the | | LEUKOREDUCED | | PST | | results section. | + +--------+ + + + | PRODUCT - PLATELET | Routin | 05/06/2019 | | Results for this | | PHERESIS | e | 1:05 AM | | procedure are in the | | LEUKOREDUCED | | PST | | results section. | + +--------+ + + + | CBC AND AUTO DIFF | Routin | 05/06/2019 | | Results for this | | | e | 12:02 AM | | procedure are in the | | | | PST | | results section. | + +--------+ + + + | CBC, WITH | Routin | 05/06/2019 | | Results for this | | DIFFERENTIAL | e | 12:02 AM | | procedure are in the | | | | PST | | results section. | + +--------+ + + + | COMPLETE METABOLIC | Routin | 05/06/2019 | | Results for this | | SET | e | 12:02 AM | | procedure are in the | | (NA,K,CL,CO2,BUN,CRE | | PST | | results section. | | AT,GLUC,CA,AST,ALT,B | | | | | | TI TOTAL,ALK | | | | | | PHOS,ALB,PROT TOTAL) | | | | | + +--------+ + + + | PHOSPHORUS, PLASMA | Routin | 05/06/2019 | | Results for this | | | e | 12:02 AM | | procedure are in the | | | | PST | | results section. | + +--------+ + + + | MAGNESIUM, PLASMA | Routin | 05/06/2019 | MDS | Results for this | | | e | 12:02 AM | (myelodysplastic | procedure are in the | | | | PST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) | results section. | + +--------+ + + + | PLATELET COUNT, | Routin | 05/05/2019 | | Results for this | | WHOLE BLOOD | e | 10:07 AM | | procedure are in the | | | | PST | | results section. | + +--------+ + + + | TACROLIMUS, WHOLE | Routin | 05/05/2019 | | Results for this | | BLOOD | e | 9:49 AM | | procedure are in the | | | | PST | | results section. | + +--------+ + + + | TRANSFUSE PLATELET | Routin | 05/05/2019 | | | | PHERESIS, | e | 7:50 AM | | | | LEUKOREDUCED | | PST | | | + +--------+ + + + | HB-LAB PROCESS, IRR | Routin | 05/05/2019 | | Results for this | | LR PLT PHER A | e | 1:52 AM | | procedure are in the | | | | PST | | results section. | + +--------+ + + + | CBC AND AUTO DIFF | Routin | 05/05/2019 | | Results for this | | | e | 12:33 AM | | procedure are in the | | | | PST | | results section. | + +--------+ + + + | CBC, WITH | Routin | 05/05/2019 | | Results for this | | DIFFERENTIAL | e | 12:33 AM | | procedure are in the | | | | PST | | results section. | + +--------+ + + + | COMPLETE METABOLIC | Routin | 05/05/2019 | | Results for this | | SET | e | 12:33 AM | | procedure are in the | | (NA,K,CL,CO2,BUN,CRE | | PST | | results section. | | AT,GLUC,CA,AST,ALT,B | | | | | | TI TOTAL,ALK | | | | | | PHOS,ALB,PROT TOTAL) | | | | | + +--------+ + + + | PHOSPHORUS, PLASMA | Routin | 05/05/2019 | | Results for this | | | e | 12:33 AM | | procedure are in the | | | | PST | | results section. | + +--------+ + + + | MAGNESIUM, PLASMA | Routin | 05/05/2019 | MDS | Results for this | | | e | 12:33 AM | (myelodysplastic | procedure are in the | | | | PST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) | results section. | + +--------+ + + + | LDH TOTAL, PLASMA | Routin | 05/05/2019 | | Results for this | | | e | 12:33 AM | | procedure are in the | | | | PST | | results section. | + +--------+ + + + | PLATELET COUNT, | Routin | 05/04/2019 | | Results for this | | WHOLE BLOOD | e | 7:45 AM | | procedure are in the | | | | PST | | results section. | + +--------+ + + + | TRANSFUSE PLATELET | Routin | 05/04/2019 | | | | PHERESIS, | e | 6:52 AM | | | | LEUKOREDUCED | | PST | | | + +--------+ + + + | HB-LAB PROC | Routin | 05/04/2019 | | Results for this | | ALIQUT,PLT | e | 2:06 AM | | procedure are in the | | PHER,LR,IRR | | PST | | results section. | + +--------+ + + + | CBC AND AUTO DIFF | Routin | 05/04/2019 | | Results for this | | | e | 12:52 AM | | procedure are in the | | | | PST | | results section. | + +--------+ + + + | CBC, WITH | Routin | 05/04/2019 | | Results for this | | DIFFERENTIAL | e | 12:52 AM | | procedure are in the | | | | PST | | results section. | + +--------+ + + + | COMPLETE METABOLIC | Routin | 05/04/2019 | | Results for this | | SET | e | 12:52 AM | | procedure are in the | | (NA,K,CL,CO2,BUN,CRE | | PST | | results section. | | AT,GLUC,CA,AST,ALT,B | | | | | | TI TOTAL,ALK | | | | | | PHOS,ALB,PROT TOTAL) | | | | | + +--------+ + + + | PHOSPHORUS, PLASMA | Routin | 05/04/2019 | | Results for this | | | e | 12:52 AM | | procedure are in the | | | | PST | | results section. | + +--------+ + + + | MAGNESIUM, PLASMA | Routin | 05/04/2019 | MDS | Results for this | | | e | 12:52 AM | (myelodysplastic | procedure are in the | | | | PST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) | results section. | + +--------+ + + + | PLATELET REFRACTORY | Routin | 05/03/2019 | | Results for this | | WORKUP | e | 4:56 PM | | procedure are in the | | | | PST | | results section. | + +--------+ + + + | TRANSFUSE RED CELLS, | Routin | 05/03/2019 | | | | LEUKOREDUCED | e | 10:54 AM | | | | | | PST | | | + +--------+ + + + | CULTURE, BLOOD BACTI | Routin | 05/03/2019 | | Results for this | | & YEAST [facility] | e | 6:43 AM | | procedure are in the | | | | PST | | results section. | + +--------+ + + + | PLATELET COUNT, | Routin | 05/03/2019 | | Results for this | | WHOLE BLOOD | e | 6:43 AM | | procedure are in the | | | | PST | | results section. | + +--------+ + + + | CULTURE, BLOOD BACTI | Routin | 05/03/2019 | | Results for this | | & YEAST | e | 6:43 AM | | procedure are in the | | | | PST | | results section. | + +--------+ + + + | TRANSFUSE PLATELET | Routin | 05/03/2019 | | | | PHERESIS, | e | 6:34 AM | | | | LEUKOREDUCED | | PST | | | + +--------+ + + + | HB-LAB | Routin | 05/03/2019 | | Results for this | | CROSSMATCH,ELECTRONI | e | 2:59 AM | | procedure are in the | | C | | PST | | results section. | + +--------+ + + + | HB-LAB PROCESS, IRR | Routin | 05/03/2019 | | Results for this | | LR PLT PHER A | e | 2:31 AM | | procedure are in the | | | | PST | | results section. | + +--------+ + + + | CBC AND AUTO DIFF | Routin | 05/03/2019 | | Results for this | | | e | 1:24 AM | | procedure are in the | | | | PST | | results section. | + +--------+ + + + | CBC, WITH | Routin | 05/03/2019 | | Results for this | | DIFFERENTIAL | e | 1:24 AM | | procedure are in the | | | | PST | | results section. | + +--------+ + + + | COMPLETE METABOLIC | Routin | 05/03/2019 | | Results for this | | SET | e | 1:23 AM | | procedure are in the | | (NA,K,CL,CO2,BUN,CRE | | PST | | results section. | | AT,GLUC,CA,AST,ALT,B | | | | | | TI TOTAL,ALK | | | | | | PHOS,ALB,PROT TOTAL) | | | | | + +--------+ + + + | PHOSPHORUS, PLASMA | Routin | 05/03/2019 | | Results for this | | | e | 1:23 AM | | procedure are in the | | | | PST | | results section. | + +--------+ + + + | MAGNESIUM, PLASMA | Routin | 05/03/2019 | MDS | Results for this | | | e | 1:23 AM | (myelodysplastic | procedure are in the | | | | PST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) | results section. | + +--------+ + + + | PRATIMA-IRLANDA Clay) | Routin | 05/02/2019 | | Results for this | | BY PCR DNA AMP PROBE | e | 10:09 PM | | procedure are in the | | | | PST | | results section. | + +--------+ + + + | POTASSIUM, PLASMA | Routin | 05/02/2019 | | Results for this | | | e | 3:50 PM | | procedure are in the | | | | PST | | results section. | + +--------+ + + + | UA, DIPSTICK ONLY | Routin | 05/02/2019 | | Results for this | | | e | 11:38 AM | | procedure are in the | | | | PST | | results section. | + +--------+ + + + | URINE, MICROSCOPIC | Routin | 05/02/2019 | | Results for this | | EXAM | e | 11:38 AM | | procedure are in the | | | | PST | | results section. | + +--------+ + + + | URINE SCREEN FOR | Routin | 05/02/2019 | | Results for this | | CULTURE | e | 11:38 AM | | procedure are in the | | | | PST | | results section. | + +--------+ + + + | PLATELET COUNT, | Routin | 05/02/2019 | | Results for this | | WHOLE BLOOD | e | 10:51 AM | | procedure are in the | | | | PST | | results section. | + +--------+ + + + | TRANSFUSE PLATELET | Routin | 05/02/2019 | | | | PHERESIS, | e | 8:42 AM | | | | LEUKOREDUCED | | PST | | | + +--------+ + + + | TACROLIMUS, WHOLE | Routin | 05/02/2019 | | Results for this | | BLOOD | e | 8:38 AM | | procedure are in the | | | | PST | | results section. | + +--------+ + + + | TRANSTHORACIC | Routin | 05/02/2019 | | Results for this | | ECHOCARDIOGRAM WITH | e | 8:03 AM | | procedure are in the | | STRAIN - CARDIO | | PST | | results section. | | MECHANICS, ADULT | | | | | + +--------+ + + + | HB-LAB PROCESS, IRR | Routin | 05/02/2019 | | Results for this | | LR PLT PHER A | e | 2:07 AM | | procedure are in the | | | | PST | | results section. | + +--------+ + + + | CBC AND AUTO DIFF | Routin | 05/02/2019 | | Results for this | | | e | 12:23 AM | | procedure are in the | | | | PST | | results section. | + +--------+ + + + | INR | Routin | 05/02/2019 | | Results for this | | | e | 12:23 AM | | procedure are in the | | | | PST | | results section. | + +--------+ + + + | CBC, WITH | Routin | 05/02/2019 | | Results for this | | DIFFERENTIAL | e | 12:23 AM | | procedure are in the | | | | PST | | results section. | + +--------+ + + + | COMPLETE METABOLIC | Routin | 05/02/2019 | | Results for this | | SET | e | 12:23 AM | | procedure are in the | | (NA,K,CL,CO2,BUN,CRE | | PST | | results section. | | AT,GLUC,CA,AST,ALT,B | | | | | | TI TOTAL,ALK | | | | | | PHOS,ALB,PROT TOTAL) | | | | | + +--------+ + + + | PHOSPHORUS, PLASMA | Routin | 05/02/2019 | | Results for this | | | e | 12:23 AM | | procedure are in the | | | | PST | | results section. | + +--------+ + + + | ASPERGILLUS | Routin | 05/02/2019 | | Results for this | | GALACTOMANNAN | e | 12:23 AM | | procedure are in the | | ANTIGEN, SERUM | | PST | | results section. | + +--------+ + + + | MAGNESIUM, PLASMA | Routin | 05/02/2019 | MDS | Results for this | | | e | 12:23 AM | (myelodysplastic | procedure are in the | | | | PST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) | results section. | + +--------+ + + + | LDH TOTAL, PLASMA | Routin | 05/02/2019 | | Results for this | | | e | 12:23 AM | | procedure are in the | | | | PST | | results section. | + +--------+ + + + | CULTURE, BLOOD BACTI | Routin | 05/01/2019 | | Results for this | | & YEAST [facility] | e | 8:08 PM | | procedure are in the | | | | PST | | results section. | + +--------+ + + + | CULTURE, BLOOD BACTI | Routin | 05/01/2019 | | Results for this | | & YEAST | e | 8:08 PM | | procedure are in the | | | | PST | | results section. | + +--------+ + + + | TRANSFUSE PLATELET | Routin | 05/01/2019 | | | | PHERESIS, | e | 5:59 AM | | | | LEUKOREDUCED | | PST | | | + +--------+ + + + | HB-LAB PROCESS, IRR | Routin | 05/01/2019 | | Results for this | | LR PLT PHER A | e | 1:01 AM | | procedure are in the | | | | PDT | | results section. | + +--------+ + + + | CBC AND AUTO DIFF | Routin | 05/01/2019 | | Results for this | | | e | 12:15 AM | | procedure are in the | | | | PDT | | results section. | + +--------+ + + + | CBC, WITH | Routin | 05/01/2019 | | Results for this | | DIFFERENTIAL | e | 12:15 AM | | procedure are in the | | | | PDT | | results section. | + +--------+ + + + | COMPLETE METABOLIC | Routin | 05/01/2019 | | Results for this | | SET | e | 12:15 AM | | procedure are in the | | (NA,K,CL,CO2,BUN,CRE | | PDT | | results section. | | AT,GLUC,CA,AST,ALT,B | | | | | | TI TOTAL,ALK | | | | | | PHOS,ALB,PROT TOTAL) | | | | | + +--------+ + + + | PHOSPHORUS, PLASMA | Routin | 05/01/2019 | | Results for this | | | e | 12:15 AM | | procedure are in the | | | | PDT | | results section. | + +--------+ + + + | MAGNESIUM, PLASMA | Routin | 05/01/2019 | MDS | Results for this | | | e | 12:15 AM | (myelodysplastic | procedure are in the | | | | PDT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) | results section. | + +--------+ + + + | TRANSFUSE RED CELLS, | Routin | 04/30/2019 | | | | LEUKOREDUCED | e | 6:21 PM | | | | | | PDT | | | + +--------+ + + + | HB-LAB | Routin | 04/30/2019 | | Results for this | | CROSSMATCH,ELECTRONI | e | 2:01 PM | | procedure are in the | | C | | PDT | | results section. | + +--------+ + + + | COMPLETE METABOLIC | Routin | 04/30/2019 | | Results for this | | SET | e | 1:36 PM | | procedure are in the | | (NA,K,CL,CO2,BUN,CRE | | PDT | | results section. | | AT,GLUC,CA,AST,ALT,B | | | | | | TI TOTAL,ALK | | | | | | PHOS,ALB,PROT TOTAL) | | | | | + +--------+ + + + | CULTURE, BLOOD BACTI | Routin | 04/30/2019 | | Results for this | | & YEAST [facility] | e | 12:34 PM | | procedure are in the | | | | PDT | | results section. | + +--------+ + + + | CULTURE, BLOOD BACTI | Routin | 04/30/2019 | | Results for this | | & YEAST | e | 12:34 PM | | procedure are in the | | | | PDT | | results section. | + +--------+ + + + | TRANSFUSE RED CELLS, | Routin | 04/30/2019 | | | | LEUKOREDUCED | e | 10:33 AM | | | | | | PDT | | | + +--------+ + + + | TRANSFUSE PLATELET | Routin | 04/30/2019 | | | | PHERESIS, | e | 5:37 AM | | | | LEUKOREDUCED | | PDT | | | + +--------+ + + + | HB-LAB PROCESS, IRR | Routin | 04/30/2019 | | Results for this | | LR PLT PHER A | e | 1:45 AM | | procedure are in the | | | | PDT | | results section. | + +--------+ + + + | HB-LAB | Routin | 04/30/2019 | | Results for this | | CROSSMATCH,ELECTRONI | e | 1:45 AM | | procedure are in the | | C | | PDT | | results section. | + +--------+ + + + | ANTIBODY SCREEN | Routin | 04/30/2019 | | Results for this | | | e | 1:45 AM | | procedure are in the | | | | PDT | | results section. | + +--------+ + + + | TYPE AND SCREEN | Routin | 04/30/2019 | | Results for this | | | e | 1:45 AM | | procedure are in the | | | | PDT | | results section. | + +--------+ + + + | ABO & RH TYPE | Routin | 04/30/2019 | | Results for this | | | e | 1:45 AM | | procedure are in the | | | | PDT | | results section. | + +--------+ + + + | CMV PCR | Routin | 04/30/2019 | MDS | Results for this | | QUANTITATION, PLASMA | e | 12:50 AM | (myelodysplastic | procedure are in the | | | | PDT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) | results section. | + +--------+ + + + | COMPLETE METABOLIC | Routin | 04/30/2019 | | Results for this | | SET | e | 12:50 AM | | procedure are in the | | (NA,K,CL,CO2,BUN,CRE | | PDT | | results section. | | AT,GLUC,CA,AST,ALT,B | | | | | | TI TOTAL,ALK | | | | | | PHOS,ALB,PROT TOTAL) | | | | | + +--------+ + + + | PHOSPHORUS, PLASMA | Routin | 04/30/2019 | | Results for this | | | e | 12:50 AM | | procedure are in the | | | | PDT | | results section. | + +--------+ + + + | MAGNESIUM, PLASMA | Routin | 04/30/2019 | MDS | Results for this | | | e | 12:50 AM | (myelodysplastic | procedure are in the | | | | PDT | syndrome) ([facility]) | results section. | + +--------+ + + + | HUMAN HERPES VIRUS 6 | Routin | 04/30/2019 | MDS | Results for this | | PCR (PLASMA OR CSF) | e | 12:50 AM | (myelodysplastic | procedure are in the | | | | PDT | syndrome) ([facility]) | results section. | + +--------+ + + + | CBC AND AUTO DIFF | Routin | 04/30/2019 | | Results for this | | | e | 12:48 AM | | procedure are in the | | | | PDT | | results section. | + +--------+ + + + | CBC, WITH | Routin | 04/30/2019 | | Results for this | | DIFFERENTIAL | e | 12:48 AM | | procedure are in the | | | | PDT | | results section. | + +--------+ + + + | TRANSFUSE PLATELET | Routin | 04/29/2019 | | | | PHERESIS, | e | 8:50 PM | | | | LEUKOREDUCED | | PDT | | | + +--------+ + + + | HB-LAB PROCESS, IRR | Routin | 04/29/2019 | | Results for this | | LR PLT PHER A | e | 6:48 PM | | procedure are in the | | | | PDT | | results section. | + +--------+ + + + | CULTURE, BLOOD BACTI | Routin | 04/29/2019 | | Results for this | | & YEAST [facility] | e | 1:08 PM | | procedure are in the | | | | PDT | | results section. | + +--------+ + + + | CULTURE, BLOOD BACTI | Routin | 04/29/2019 | | Results for this | | & YEAST | e | 1:08 PM | | procedure are in the | | | | PDT | | results section. | + +--------+ + + + | CULTURE, BLOOD BACTI | Routin | 04/29/2019 | | Results for this | | & YEAST [facility] | e | 1:06 PM | | procedure are in the | | | | PDT | | results section. | + +--------+ + + + | CULTURE, BLOOD BACTI | Routin | 04/29/2019 | | Results for this | | & YEAST | e | 1:06 PM | | procedure are in the | | | | PDT | | results section. | + +--------+ + + + | TRANSFUSE PLATELET | Routin | 04/29/2019 | | | | PHERESIS, | e | 9:49 AM | | | | LEUKOREDUCED | | PDT | | | + +--------+ + + + | HB-LAB PROCESS, IRR | Routin | 04/29/2019 | | Results for this | | LR PLT PHER A | e | 1:43 AM | | procedure are in the | | | | PDT | | results section. | + +--------+ + + + | CBC AND AUTO DIFF | Routin | 04/29/2019 | | Results for this | | | e | 12:00 AM | | procedure are in the | | | | PDT | | results section. | + +--------+ + + + | CBC, WITH | Routin | 04/29/2019 | | Results for this | | DIFFERENTIAL | e | 12:00 AM | | procedure are in the | | | | PDT | | results section. | + +--------+ + + + | COMPLETE METABOLIC | Routin | 04/29/2019 | | Results for this | | SET | e | 12:00 AM | | procedure are in the | | (NA,K,CL,CO2,BUN,CRE | | PDT | | results section. | | AT,GLUC,CA,AST,ALT,B | | | | | | TI TOTAL,ALK | | | | | | PHOS,ALB,PROT TOTAL) | | | | | + +--------+ + + + | PHOSPHORUS, PLASMA | Routin | 04/29/2019 | | Results for this | | | e | 12:00 AM | | procedure are in the | | | | PDT | | results section. | + +--------+ + + + | MAGNESIUM, PLASMA | Routin | 04/29/2019 | MDS | Results for this | | | e | 12:00 AM | (myelodysplastic | procedure are in the | | | | PDT | syndrome) ([facility]) | results section. | + +--------+ + + + | CULTURE, URINE [facility] | Routin | 04/28/2019 | | Results for this | | | e | 8:20 PM | | procedure are in the | | | | PDT | | results section. | + +--------+ + + + | UA, DIPSTICK ONLY | Routin | 04/28/2019 | | Results for this | | | e | 8:20 PM | | procedure are in the | | | | PDT | | results section. | + +--------+ + + + | URINE, MICROSCOPIC | Routin | 04/28/2019 | | Results for this | | EXAM | e | 8:20 PM | | procedure are in the | | | | PDT | | results section. | + +--------+ + + + | CULTURE, URINE BACTI | Routin | 04/28/2019 | | Results for this | | | e | 8:20 PM | | procedure are in the | | | | PDT | | results section. | + +--------+ + + + | X-RAY CHEST 2 VIEW | Routin | 04/28/2019 | | Results for this | | | e | 7:27 PM | | procedure are in the | | | | PDT | | results section. | + +--------+ + + + | CULTURE, BLOOD BACTI | Routin | 04/28/2019 | | Results for this | | & YEAST [facility] | e | 6:49 PM | | procedure are in the | | | | PDT | | results section. | + +--------+ + + + | BLOOD CULTURE WORKUP | Routin | 04/28/2019 | | Results for this | | | e | 6:49 PM | | procedure are in the | | | | PDT | | results section. | + +--------+ + + + | CULTURE, BLOOD BACTI | Routin | 04/28/2019 | | Results for this | | & YEAST | e | 6:49 PM | | procedure are in the | | | | PDT | | results section. | + +--------+ + + + | CULTURE, BLOOD BACTI | Routin | 04/28/2019 | | Results for this | | & YEAST [facility] | e | 6:40 PM | | procedure are in the | | | | PDT | | results section. | + +--------+ + + + | BLOOD CULTURE WORKUP | Routin | 04/28/2019 | | Results for this | | | e | 6:40 PM | | procedure are in the | | | | PDT | | results section. | + +--------+ + + + | CULTURE, BLOOD BACTI | Routin | 04/28/2019 | | Results for this | | & YEAST | e | 6:40 PM | | procedure are in the | | | | PDT | | results section. | + +--------+ + + + | POSACONAZOLE, QUANT | Routin | 04/28/2019 | | Results for this | | | e | 8:20 AM | | procedure are in the | | | | PDT | | results section. | + +--------+ + + + | TACROLIMUS, WHOLE | Routin | 04/28/2019 | | Results for this | | BLOOD | e | 8:20 AM | | procedure are in the | | | | PDT | | results section. | + +--------+ + + + | TRANSFUSE PLATELET | Routin | 04/28/2019 | | | | PHERESIS, | e | 6:32 AM | | | | LEUKOREDUCED | | PDT | | | + +--------+ + + + | HB-LAB PROCESS, IRR | Routin | 04/28/2019 | | Results for this | | LR PLT PHER A | e | 2:11 AM | | procedure are in the | | | | PDT | | results section. | + +--------+ + + + | CBC AND AUTO DIFF | Routin | 04/28/2019 | | Results for this | | | e | 12:00 AM | | procedure are in the | | | | PDT | | results section. | + +--------+ + + + | CBC, WITH | Routin | 04/28/2019 | | Results for this | | DIFFERENTIAL | e | 12:00 AM | | procedure are in the | | | | PDT | | results section. | + +--------+ + + + | COMPLETE METABOLIC | Routin | 04/28/2019 | | Results for this | | SET | e | 12:00 AM | | procedure are in the | | (NA,K,CL,CO2,BUN,CRE | | PDT | | results section. | | AT,GLUC,CA,AST,ALT,B | | | | | | TI TOTAL,ALK | | | | | | PHOS,ALB,PROT TOTAL) | | | | | + +--------+ + + + | PHOSPHORUS, PLASMA | Routin | 04/28/2019 | | Results for this | | | e | 12:00 AM | | procedure are in the | | | | PDT | | results section. | + +--------+ + + + | MAGNESIUM, PLASMA | Routin | 04/28/2019 | MDS | Results for this | | | e | 12:00 AM | (myelodysplastic | procedure are in the | | | | PDT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) | results section. | + +--------+ + + + | LDH TOTAL, PLASMA | Routin | 04/28/2019 | | Results for this | | | e | 12:00 AM | | procedure are in the | | | | PDT | | results section. | + +--------+ + + + | TRANSFUSE PLATELET | Routin | 04/27/2019 | | | | PHERESIS, | e | 6:26 AM | | | | LEUKOREDUCED | | PDT | | | + +--------+ + + + | HB-LAB PROCESS, IRR | Routin | 04/27/2019 | | Results for this | | LR PLT PHER A | e | 3:33 AM | | procedure are in the | | | | PDT | | results section. | + +--------+ + + + | CBC AND AUTO DIFF | Routin | 04/27/2019 | | Results for this | | | e | 1:02 AM | | procedure are in the | | | | PDT | | results section. | + +--------+ + + + | CBC, WITH | Routin | 04/27/2019 | | Results for this | | DIFFERENTIAL | e | 1:02 AM | | procedure are in the | | | | PDT | | results section. | + +--------+ + + + | COMPLETE METABOLIC | Routin | 04/27/2019 | | Results for this | | SET | e | 1:02 AM | | procedure are in the | | (NA,K,CL,CO2,BUN,CRE | | PDT | | results section. | | AT,GLUC,CA,AST,ALT,B | | | | | | TI TOTAL,ALK | | | | | | PHOS,ALB,PROT TOTAL) | | | | | + +--------+ + + + | PHOSPHORUS, PLASMA | Routin | 04/27/2019 | | Results for this | | | e | 1:02 AM | | procedure are in the | | | | PDT | | results section. | + +--------+ + + + | MAGNESIUM, PLASMA | Routin | 04/27/2019 | MDS | Results for this | | | e | 1:02 AM | (myelodysplastic | procedure are in the | | | | PDT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) | results section. | + +--------+ + + + | TACROLIMUS, WHOLE | Routin | 04/26/2019 | | Results for this | | BLOOD | e | 8:14 AM | | procedure are in the | | | | PDT | | results section. | + +--------+ + + + | COMPLETE METABOLIC | Routin | 04/26/2019 | | Results for this | | SET | e | 1:31 AM | | procedure are in the | | (NA,K,CL,CO2,BUN,CRE | | PDT | | results section. | | AT,GLUC,CA,AST,ALT,B | | | | | | TI TOTAL,ALK | | | | | | PHOS,ALB,PROT TOTAL) | | | | | + +--------+ + + + | PHOSPHORUS, PLASMA | Routin | 04/26/2019 | | Results for this | | | e | 1:31 AM | | procedure are in the | | | | PDT | | results section. | + +--------+ + + + | MAGNESIUM, PLASMA | Routin | 04/26/2019 | | Results for this | | | e | 1:31 AM | | procedure are in the | | | | PDT | | results section. | + +--------+ + + + | CBC AND AUTO DIFF | Routin | 04/26/2019 | | Results for this | | | e | 1:24 AM | | procedure are in the | | | | PDT | | results section. | + +--------+ + + + | CBC, WITH | Routin | 04/26/2019 | | Results for this | | DIFFERENTIAL | e | 1:24 AM | | procedure are in the | | | | PDT | | results section. | + +--------+ + + + | BASIC METABOLIC SET | Routin | 04/25/2019 | | Results for this | | (NA, K, CL, TCO2, | e | 5:00 PM | | procedure are in the | | BUN, CR, GLU, CA) | | PDT | | results section. | + +--------+ + + + | MAGNESIUM, PLASMA | Routin | 04/25/2019 | | Results for this | | | e | 5:00 PM | | procedure are in the | | | | PDT | | results section. | + +--------+ + + + | GI BACTERIAL PANEL, | Routin | 04/25/2019 | | Results for this | | STOOL | e | 4:43 PM | | procedure are in the | | | | PDT | | results section. | + +--------+ + + + | GI VIRUS PANEL, | Routin | 04/25/2019 | | Results for this | | STOOL | e | 4:43 PM | | procedure are in the | | | | PDT | | results section. | + +--------+ + + + | CBC AND AUTO DIFF | Routin | 04/25/2019 | MDS | Results for this | | | e | 3:27 PM | (myelodysplastic | procedure are in the | | | | PDT | syndrome) ([facility]) | results section. | + +--------+ + + + | CBC, WITH | Routin | 04/25/2019 | MDS | Results for this | | DIFFERENTIAL | e | 3:27 PM | (myelodysplastic | procedure are in the | | | | PDT | syndrome) ([facility]) | results section. | + +--------+ + + + | C. DIFFICILE TOXIN, | Routin | 04/25/2019 | | Results for this | | W/REFLEX | e | 1:15 PM | | procedure are in the | | CONFIRMATION IF | | PDT | | results section. | | INDETERMINATE | | | | | | RESULTS | | | | | + +--------+ + + + | PRATIMA-IRLANDA Clay) | Routin | 04/25/2019 | | Results for this | | BY PCR DNA AMP PROBE | e | 11:14 AM | | procedure are in the | | | | PDT | | results section. | + +--------+ + + + | CBC AND AUTO DIFF | Routin | 04/25/2019 | | Results for this | | | e | 12:00 AM | | procedure are in the | | | | PDT | | results section. | + +--------+ + + + | INR | Routin | 04/25/2019 | | Results for this | | | e | 12:00 AM | | procedure are in the | | | | PDT | | results section. | + +--------+ + + + | CBC, WITH | Routin | 04/25/2019 | | Results for this | | DIFFERENTIAL | e | 12:00 AM | | procedure are in the | | | | PDT | | results section. | + +--------+ + + + | COMPLETE METABOLIC | Routin | 04/25/2019 | | Results for this | | SET | e | 12:00 AM | | procedure are in the | | (NA,K,CL,CO2,BUN,CRE | | PDT | | results section. | | AT,GLUC,CA,AST,ALT,B | | | | | | TI TOTAL,ALK | | | | | | PHOS,ALB,PROT TOTAL) | | | | | + +--------+ + + + | PHOSPHORUS, PLASMA | Routin | 04/25/2019 | | Results for this | | | e | 12:00 AM | | procedure are in the | | | | PDT | | results section. | + +--------+ + + + | ASPERGILLUS | Routin | 04/25/2019 | | Results for this | | GALACTOMANNAN | e | 12:00 AM | | procedure are in the | | ANTIGEN, SERUM | | PDT | | results section. | + +--------+ + + + | MAGNESIUM, PLASMA | Routin | 04/25/2019 | | Results for this | | | e | 12:00 AM | | procedure are in the | | | | PDT | | results section. | + +--------+ + + + | LDH TOTAL, PLASMA | Routin | 04/25/2019 | | Results for this | | | e | 12:00 AM | | procedure are in the | | | | PDT | | results section. | + +--------+ + + + | CBC AND AUTO DIFF | Routin | 04/24/2019 | | Results for this | | | e | 12:08 AM | | procedure are in the | | | | PDT | | results section. | + +--------+ + + + | CBC, WITH | Routin | 04/24/2019 | | Results for this | | DIFFERENTIAL | e | 12:08 AM | | procedure are in the | | | | PDT | | results section. | + +--------+ + + + | COMPLETE METABOLIC | Routin | 04/24/2019 | | Results for this | | SET | e | 12:08 AM | | procedure are in the | | (NA,K,CL,CO2,BUN,CRE | | PDT | | results section. | | AT,GLUC,CA,AST,ALT,B | | | | | | TI TOTAL,ALK | | | | | | PHOS,ALB,PROT TOTAL) | | | | | + +--------+ + + + | PHOSPHORUS, PLASMA | Routin | 04/24/2019 | | Results for this | | | e | 12:08 AM | | procedure are in the | | | | PDT | | results section. | + +--------+ + + + | MAGNESIUM, PLASMA | Routin | 04/24/2019 | | Results for this | | | e | 12:08 AM | | procedure are in the | | | | PDT | | results section. | + +--------+ + + + | CBC AND AUTO DIFF | Routin | 04/23/2019 | MDS | Results for this | | | e | 4:25 PM | (myelodysplastic | procedure are in the | | | | PDT | syndrome) ([facility]) | results section. | + +--------+ + + + | CBC, WITH | Routin | 04/23/2019 | MDS | Results for this | | DIFFERENTIAL | e | 4:25 PM | (myelodysplastic | procedure are in the | | | | PDT | syndrome) ([facility]) | results section. | + +--------+ + + + | CBC AND AUTO DIFF | Routin | 04/22/2019 | | Results for this | | | e | 11:48 PM | | procedure are in the | | | | PDT | | results section. | + +--------+ + + + | CBC, WITH | Routin | 04/22/2019 | | Results for this | | DIFFERENTIAL | e | 11:48 PM | | procedure are in the | | | | PDT | | results section. | + +--------+ + + + | CMV PCR | Routin | 04/22/2019 | MDS | Results for this | | QUANTITATION, PLASMA | e | 11:47 PM | (myelodysplastic | procedure are in the | | | | PDT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) | results section. | + +--------+ + + + | COMPLETE METABOLIC | Routin | 04/22/2019 | | Results for this | | SET | e | 11:47 PM | | procedure are in the | | (NA,K,CL,CO2,BUN,CRE | | PDT | | results section. | | AT,GLUC,CA,AST,ALT,B | | | | | | TI TOTAL,ALK | | | | | | PHOS,ALB,PROT TOTAL) | | | | | + +--------+ + + + | PHOSPHORUS, PLASMA | Routin | 04/22/2019 | | Results for this | | | e | 11:47 PM | | procedure are in the | | | | PDT | | results section. | + +--------+ + + + | MAGNESIUM, PLASMA | Routin | 04/22/2019 | | Results for this | | | e | 11:47 PM | | procedure are in the | | | | PDT | | results section. | + +--------+ + + + | HUMAN HERPES VIRUS 6 | Routin | 04/22/2019 | MDS | Results for this | | PCR (PLASMA OR CSF) | e | 11:47 PM | (myelodysplastic | procedure are in the | | | | PDT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) | results section. | + +--------+ + + + | ALLOGENEIC | Routin | 04/22/2019 | | Results for this | | HEMATOPOIETIC STEM | e | 8:37 PM | | procedure are in the | | CELL TRANSPLANT WITH | | PDT | | results section. | | PURGING | | | | | + +--------+ + + + | PROCEDURE NOTE | Routin | 04/22/2019 | | Results for this | | | e | 5:39 PM | | procedure are in the | | | | PDT | | results section. | + +--------+ + + + | PROCEDURE NOTE | Routin | 04/22/2019 | | Results for this | | | e | 4:59 PM | | procedure are in the | | | | PDT | | results section. | + +--------+ + + + | PRODUCT CELL COUNT | Urgent | 04/22/2019 | | Results for this | | | | 1:00 PM | | procedure are in the | | | | PDT | | results section. | + +--------+ + + + | CULTURE, BLOOD BACTI | Routin | 04/22/2019 | | Results for this | | & YEAST [facility] | e | 12:30 PM | | procedure are in the | | | | PDT | | results section. | + +--------+ + + + | PRODUCT CD34 STEM | Urgent | 04/22/2019 | | Results for this | | CELLS | | 12:30 PM | | procedure are in the | | | | PDT | | results section. | + +--------+ + + + | PRODUCT ADD'L | Urgent | 04/22/2019 | | Results for this | | MARKERS | | 12:30 PM | | procedure are in the | | | | PDT | | results section. | + +--------+ + + + | PRODUCT MANUAL DIFF | Urgent | 04/22/2019 | | Results for this | | | | 12:30 PM | | procedure are in the | | | | PDT | | results section. | + +--------+ + + + | PRODUCT CELL COUNT | Urgent | 04/22/2019 | | Results for this | | | | 12:30 PM | | procedure are in the | | | | PDT | | results section. | + +--------+ + + + | CULTURE, BLOOD BACTI | Routin | 04/22/2019 | | Results for this | | & YEAST | e | 12:30 PM | | procedure are in the | | | | PDT | | results section. | + +--------+ + + + | PRODUCT CELL COUNT | Urgent | 04/22/2019 | | Results for this | | | | 10:30 AM | | procedure are in the | | | | PDT | | results section. | + +--------+ + + + | CULTURE, BLOOD BACTI | Routin | 04/22/2019 | | Results for this | | & YEAST [facility] | e | 10:00 AM | | procedure are in the | | | | PDT | | results section. | + +--------+ + + + | PRODUCT CD34 STEM | Urgent | 04/22/2019 | | Results for this | | CELLS | | 10:00 AM | | procedure are in the | | | | PDT | | results section. | + +--------+ + + + | PRODUCT ADD'L | Urgent | 04/22/2019 | | Results for this | | MARKERS | | 10:00 AM | | procedure are in the | | | | PDT | | results section. | + +--------+ + + + | PRODUCT MANUAL DIFF | Urgent | 04/22/2019 | | Results for this | | | | 10:00 AM | | procedure are in the | | | | PDT | | results section. | + +--------+ + + + | PRODUCT CELL COUNT | Urgent | 04/22/2019 | | Results for this | | | | 10:00 AM | | procedure are in the | | | | PDT | | results section. | + +--------+ + + + | CULTURE, BLOOD BACTI | Routin | 04/22/2019 | | Results for this | | & YEAST | e | 10:00 AM | | procedure are in the | | | | PDT | | results section. | + +--------+ + + + | TACROLIMUS, WHOLE | Routin | 04/22/2019 | | Results for this | | BLOOD | e | 8:50 AM | | procedure are in the | | | | PDT | | results section. | + +--------+ + + + | RBC MORPHOLOGY | Routin | 04/22/2019 | | | | | e | 12:11 AM | | | | | | PDT | | | + +--------+ + + + | CBC AND AUTO DIFF | Routin | 04/22/2019 | | Results for this | | | e | 12:11 AM | | procedure are in the | | | | PDT | | results section. | + +--------+ + + + | MANUAL DIFFERENTIAL | Routin | 04/22/2019 | | Results for this | | | e | 12:11 AM | | procedure are in the | | | | PDT | | results section. | + +--------+ + + + | CBC, WITH | Routin | 04/22/2019 | | Results for this | | DIFFERENTIAL | e | 12:11 AM | | procedure are in the | | | | PDT | | results section. | + +--------+ + + + | COMPLETE METABOLIC | Routin | 04/22/2019 | | Results for this | | SET | e | 12:11 AM | | procedure are in the | | (NA,K,CL,CO2,BUN,CRE | | PDT | | results section. | | AT,GLUC,CA,AST,ALT,B | | | | | | TI TOTAL,ALK | | | | | | PHOS,ALB,PROT TOTAL) | | | | | + +--------+ + + + | PHOSPHORUS, PLASMA | Routin | 04/22/2019 | | Results for this | | | e | 12:11 AM | | procedure are in the | | | | PDT | | results section. | + +--------+ + + + | MAGNESIUM, PLASMA | Routin | 04/22/2019 | | Results for this | | | e | 12:11 AM | | procedure are in the | | | | PDT | | results section. | + +--------+ + + + | RBC MORPHOLOGY | Routin | 04/21/2019 | MDS | Results for this | | | e | 4:55 PM | (myelodysplastic | procedure are in the | | | | PDT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) | results section. | + +--------+ + + + | CBC AND AUTO DIFF | Routin | 04/21/2019 | MDS | Results for this | | | e | 4:55 PM | (myelodysplastic | procedure are in the | | | | PDT | syndrome) ([facility]) | results section. | + +--------+ + + + | MANUAL DIFFERENTIAL | Routin | 04/21/2019 | MDS | Results for this | | | e | 4:55 PM | (myelodysplastic | procedure are in the | | | | PDT | syndrome) ([facility]) | results section. | + +--------+ + + + | CBC, WITH | Routin | 04/21/2019 | MDS | Results for this | | DIFFERENTIAL | e | 4:55 PM | (myelodysplastic | procedure are in the | | | | PDT | syndrome) ([facility]) | results section. | + +--------+ + + + | RBC MORPHOLOGY | Routin | 04/21/2019 | | | | | e | 12:22 AM | | | | | | PDT | | | + +--------+ + + + | CBC AND AUTO DIFF | Routin | 04/21/2019 | | Results for this | | | e | 12:22 AM | | procedure are in the | | | | PDT | | results section. | + +--------+ + + + | CBC, WITH | Routin | 04/21/2019 | | Results for this | | DIFFERENTIAL | e | 12:22 AM | | procedure are in the | | | | PDT | | results section. | + +--------+ + + + | COMPLETE METABOLIC | Routin | 04/21/2019 | | Results for this | | SET | e | 12:22 AM | | procedure are in the | | (NA,K,CL,CO2,BUN,CRE | | PDT | | results section. | | AT,GLUC,CA,AST,ALT,B | | | | | | TI TOTAL,ALK | | | | | | PHOS,ALB,PROT TOTAL) | | | | | + +--------+ + + + | ANTIBODY SCREEN | Routin | 04/21/2019 | | Results for this | | | e | 12:22 AM | | procedure are in the | | | | PDT | | results section. | + +--------+ + + + | TYPE AND SCREEN | Routin | 04/21/2019 | | Results for this | | | e | 12:22 AM | | procedure are in the | | | | PDT | | results section. | + +--------+ + + + | ABO & RH TYPE | Routin | 04/21/2019 | | Results for this | | | e | 12:22 AM | | procedure are in the | | | | PDT | | results section. | + +--------+ + + + | PHOSPHORUS, PLASMA | Routin | 04/21/2019 | | Results for this | | | e | 12:22 AM | | procedure are in the | | | | PDT | | results section. | + +--------+ + + + | URIC ACID, PLASMA | Routin | 04/21/2019 | | Results for this | | | e | 12:22 AM | | procedure are in the | | | | PDT | | results section. | + +--------+ + + + | MAGNESIUM, PLASMA | Routin | 04/21/2019 | | Results for this | | | e | 12:22 AM | | procedure are in the | | | | PDT | | results section. | + +--------+ + + + | LDH TOTAL, PLASMA | Routin | 04/21/2019 | | Results for this | | | e | 12:22 AM | | procedure are in the | | | | PDT | | results section. | + +--------+ + + + | RBC MORPHOLOGY | Routin | 04/20/2019 | MDS | Results for this | | | e | 3:40 PM | (myelodysplastic | procedure are in the | | | | PDT | syndrome) ([facility] | results section. | + +--------+ + + + | CBC AND AUTO DIFF | Routin | 04/20/2019 | MDS | Results for this | | | e | 3:40 PM | (myelodysplastic | procedure are in the | | | | PDT | syndrome) ([facility]) | results section. | + +--------+ + + + | CBC, WITH | Routin | 04/20/2019 | MDS | Results for this | | DIFFERENTIAL | e | 3:40 PM | (myelodysplastic | procedure are in the | | | | PDT | syndrome) ([facility]) | results section. | + +--------+ + + + | CBC AND AUTO DIFF | Routin | 04/20/2019 | | Results for this | | | e | 1:27 AM | | procedure are in the | | | | PDT | | results section. | + +--------+ + + + | CBC, WITH | Routin | 04/20/2019 | | Results for this | | DIFFERENTIAL | e | 1:27 AM | | procedure are in the | | | | PDT | | results section. | + +--------+ + + + | COMPLETE METABOLIC | Routin | 04/20/2019 | | Results for this | | SET | e | 1:27 AM | | procedure are in the | | (NA,K,CL,CO2,BUN,CRE | | PDT | | results section. | | AT,GLUC,CA,AST,ALT,B | | | | | | TI TOTAL,ALK | | | | | | PHOS,ALB,PROT TOTAL) | | | | | + +--------+ + + + | PHOSPHORUS, PLASMA | Routin | 04/20/2019 | | Results for this | | | e | 1:27 AM | | procedure are in the | | | | PDT | | results section. | + +--------+ + + + | MAGNESIUM, PLASMA | Routin | 04/20/2019 | | Results for this | | | e | 1:27 AM | | procedure are in the | | | | PDT | | results section. | + +--------+ + + + | RBC MORPHOLOGY | Routin | 04/19/2019 | MDS | Results for this | | | e | 3:25 PM | (myelodysplastic | procedure are in the | | | | PDT | syndrome) ([facility]) | results section. | + +--------+ + + + | CBC AND AUTO DIFF | Routin | 04/19/2019 | MDS | Results for this | | | e | 3:25 PM | (myelodysplastic | procedure are in the | | | | PDT | syndrome) ([facility]) | results section. | + +--------+ + + + | CBC, WITH | Routin | 04/19/2019 | MDS | Results for this | | DIFFERENTIAL | e | 3:25 PM | (myelodysplastic | procedure are in the | | | | PDT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) | results section. | + +--------+ + + + | POTASSIUM, PLASMA | Routin | 04/19/2019 | | Results for this | | | e | 3:24 PM | | procedure are in the | | | | PDT | | results section. | + +--------+ + + + | RBC MORPHOLOGY | Routin | 04/19/2019 | | Results for this | | | e | 1:33 AM | | procedure are in the | | | | PDT | | results section. | + +--------+ + + + | CBC AND AUTO DIFF | Routin | 04/19/2019 | | Results for this | | | e | 1:33 AM | | procedure are in the | | | | PDT | | results section. | + +--------+ + + + | CBC, WITH | Routin | 04/19/2019 | | Results for this | | DIFFERENTIAL | e | 1:33 AM | | procedure are in the | | | | PDT | | results section. | + +--------+ + + + | COMPLETE METABOLIC | Routin | 04/19/2019 | | Results for this | | SET | e | 1:33 AM | | procedure are in the | | (NA,K,CL,CO2,BUN,CRE | | PDT | | results section. | | AT,GLUC,CA,AST,ALT,B | | | | | | TI TOTAL,ALK | | | | | | PHOS,ALB,PROT TOTAL) | | | | | + +--------+ + + + | PHOSPHORUS, PLASMA | Routin | 04/19/2019 | | Results for this | | | e | 1:33 AM | | procedure are in the | | | | PDT | | results section. | + +--------+ + + + | MAGNESIUM, PLASMA | Routin | 04/19/2019 | | Results for this | | | e | 1:33 AM | | procedure are in the | | | | PDT | | results section. | + +--------+ + + + | CBC AND AUTO DIFF | Routin | 04/18/2019 | MDS | Results for this | | | e | 5:40 PM | (myelodysplastic | procedure are in the | | | | PDT | syndrome) ([facility]) | results section. | + +--------+ + + + | CBC, WITH | Routin | 04/18/2019 | MDS | Results for this | | DIFFERENTIAL | e | 5:40 PM | (myelodysplastic | procedure are in the | | | | PDT | syndrome) ([facility]) | results section. | + +--------+ + + + | CBC AND AUTO DIFF | Routin | 04/18/2019 | | Results for this | | | e | 12:03 AM | | procedure are in the | | | | PDT | | results section. | + +--------+ + + + | INR | Routin | 04/18/2019 | | Results for this | | | e | 12:03 AM | | procedure are in the | | | | PDT | | results section. | + +--------+ + + + | CBC, WITH | Routin | 04/18/2019 | | Results for this | | DIFFERENTIAL | e | 12:03 AM | | procedure are in the | | | | PDT | | results section. | + +--------+ + + + | COMPLETE METABOLIC | Routin | 04/18/2019 | | Results for this | | SET | e | 12:03 AM | | procedure are in the | | (NA,K,CL,CO2,BUN,CRE | | PDT | | results section. | | AT,GLUC,CA,AST,ALT,B | | | | | | TI TOTAL,ALK | | | | | | PHOS,ALB,PROT TOTAL) | | | | | + +--------+ + + + | PHOSPHORUS, PLASMA | Routin | 04/18/2019 | | Results for this | | | e | 12:03 AM | | procedure are in the | | | | PDT | | results section. | + +--------+ + + + | URIC ACID, PLASMA | Routin | 04/18/2019 | | Results for this | | | e | 12:03 AM | | procedure are in the | | | | PDT | | results section. | + +--------+ + + + | ASPERGILLUS | Routin | 04/18/2019 | | Results for this | | GALACTOMANNAN | e | 12:03 AM | | procedure are in the | | ANTIGEN, SERUM | | PDT | | results section. | + +--------+ + + + | MAGNESIUM, PLASMA | Routin | 04/18/2019 | | Results for this | | | e | 12:03 AM | | procedure are in the | | | | PDT | | results section. | + +--------+ + + + | LDH TOTAL, PLASMA | Routin | 04/18/2019 | | Results for this | | | e | 12:03 AM | | procedure are in the | | | | PDT | | results section. | + +--------+ + + + | X-RAY CHEST 2 VIEW | Routin | 04/17/2019 | | Results for this | | | e | 6:04 PM | | procedure are in the | | | | PDT | | results section. | + +--------+ + + + | CULTURE, BLOOD BACTI | Routin | 04/17/2019 | | Results for this | | & YEAST [facility] | e | 5:09 PM | | procedure are in the | | | | PDT | | results section. | + +--------+ + + + | CULTURE, BLOOD BACTI | Routin | 04/17/2019 | | Results for this | | & YEAST | e | 5:09 PM | | procedure are in the | | | | PDT | | results section. | + +--------+ + + + | CULTURE, BLOOD BACTI | Routin | 04/17/2019 | | Results for this | | & YEAST [facility] | e | 4:45 PM | | procedure are in the | | | | PDT | | results section. | + +--------+ + + + | CULTURE, BLOOD BACTI | Routin | 04/17/2019 | | Results for this | | & YEAST | e | 4:45 PM | | procedure are in the | | | | PDT | | results section. | + +--------+ + + + | CBC AND AUTO DIFF | Routin | 04/17/2019 | MDS | Results for this | | | e | 4:21 PM | (myelodysplastic | procedure are in the | | | | PDT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) | results section. | + +--------+ + + + | CBC, WITH | Routin | 04/17/2019 | MDS | Results for this | | DIFFERENTIAL | e | 4:21 PM | (myelodysplastic | procedure are in the | | | | PDT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) | results section. | + +--------+ + + + | POTASSIUM, PLASMA | Routin | 04/17/2019 | | Results for this | | | e | 4:21 PM | | procedure are in the | | | | PDT | | results section. | + +--------+ + + + | CBC AND AUTO DIFF | Routin | 04/17/2019 | | Results for this | | | e | 12:49 AM | | procedure are in the | | | | PDT | | results section. | + +--------+ + + + | CBC, WITH | Routin | 04/17/2019 | | Results for this | | DIFFERENTIAL | e | 12:49 AM | | procedure are in the | | | | PDT | | results section. | + +--------+ + + + | COMPLETE METABOLIC | Routin | 04/17/2019 | | Results for this | | SET | e | 12:49 AM | | procedure are in the | | (NA,K,CL,CO2,BUN,CRE | | PDT | | results section. | | AT,GLUC,CA,AST,ALT,B | | | | | | TI TOTAL,ALK | | | | | | PHOS,ALB,PROT TOTAL) | | | | | + +--------+ + + + | PHOSPHORUS, PLASMA | Routin | 04/17/2019 | | Results for this | | | e | 12:49 AM | | procedure are in the | | | | PDT | | results section. | + +--------+ + + + | MAGNESIUM, PLASMA | Routin | 04/17/2019 | | Results for this | | | e | 12:49 AM | | procedure are in the | | | | PDT | | results section. | + +--------+ + + + | CBC AND AUTO DIFF | Routin | 04/16/2019 | MDS | Results for this | | | e | 4:16 PM | (myelodysplastic | procedure are in the | | | | PDT | syndrome) ([facility]) | results section. | + +--------+ + + + | CBC, WITH | Routin | 04/16/2019 | MDS | Results for this | | DIFFERENTIAL | e | 4:16 PM | (myelodysplastic | procedure are in the | | | | PDT | syndrome) ([facility]) | results section. | + +--------+ + + + | UA, DIPSTICK ONLY | Routin | 04/16/2019 | MDS | Results for this | | | e | 4:16 PM | (myelodysplastic | procedure are in the | | | | PDT | syndrome) ([facility]) | results section. | + +--------+ + + + | URINE, MICROSCOPIC | Routin | 04/16/2019 | MDS | Results for this | | EXAM | e | 4:16 PM | (myelodysplastic | procedure are in the | | | | PDT | syndrome) ([facility]) | results section. | + +--------+ + + + | CBC AND AUTO DIFF | Routin | 04/16/2019 | | Results for this | | | e | 12:33 AM | | procedure are in the | | | | PDT | | results section. | + +--------+ + + + | VERITO-SEVILLA VIRUS | Routin | 04/16/2019 | MDS | Results for this | | PCR, PLASMA | e | 12:33 AM | (myelodysplastic | procedure are in the | | | | PDT | syndrome) ([facility]) | results section. | + +--------+ + + + | CMV PCR | Routin | 04/16/2019 | MDS | Results for this | | QUANTITATION, PLASMA | e | 12:33 AM | (myelodysplastic | procedure are in the | | | | PDT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) | results section. | + +--------+ + + + | CBC, WITH | Routin | 04/16/2019 | | Results for this | | DIFFERENTIAL | e | 12:33 AM | | procedure are in the | | | | PDT | | results section. | + +--------+ + + + | COMPLETE METABOLIC | Routin | 04/16/2019 | | Results for this | | SET | e | 12:33 AM | | procedure are in the | | (NA,K,CL,CO2,BUN,CRE | | PDT | | results section. | | AT,GLUC,CA,AST,ALT,B | | | | | | TI TOTAL,ALK | | | | | | PHOS,ALB,PROT TOTAL) | | | | | + +--------+ + + + | PHOSPHORUS, PLASMA | Routin | 04/16/2019 | | Results for this | | | e | 12:33 AM | | procedure are in the | | | | PDT | | results section. | + +--------+ + + + | MAGNESIUM, PLASMA | Routin | 04/16/2019 | | Results for this | | | e | 12:33 AM | | procedure are in the | | | | PDT | | results section. | + +--------+ + + + | UA, DIPSTICK ONLY | Routin | 04/15/2019 | MDS | Results for this | | | e | 6:04 PM | (myelodysplastic | procedure are in the | | | | PDT | syndrome) ([facility]) | results section. | + +--------+ + + + | URINE, MICROSCOPIC | Routin | 04/15/2019 | MDS | Results for this | | EXAM | e | 6:04 PM | (myelodysplastic | procedure are in the | | | | PDT | syndrome) ([facility]) | results section. | + +--------+ + + + | HB-LAB MIKEY (KATHRYN Danna) | Routin | 04/15/2019 | | Results for this | | BY PCR DNA AMP PROBE | e | 5:19 PM | | procedure are in the | | | | PDT | | results section. | + +--------+ + + + | NURSING | Routin | 04/15/2019 | MDS | | | COMMUNICATION - | e | 3:28 PM | (myelodysplastic | | | HYPERSENSITIVITY/INF | | PDT | syndrome) ([facility]) | | | USION REACTION #5 - | | | | | | [place] | | | | | + +--------+ + + + | NURSING | Routin | 04/15/2019 | MDS | | | COMMUNICATION #3 - | e | 3:28 PM | (myelodysplastic | | | [place] | | PDT | syndrome) ([facility]) | | + +--------+ + + + | NURSING | Routin | 04/15/2019 | MDS | | | COMMUNICATION #2 - | e | 3:28 PM | (myelodysplastic | | | [place] | | PDT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) | | + +--------+ + + + | COAGULOPATHY PANEL | Routin | 04/15/2019 | | Results for this | | (INR,APTT,FIBRINOGEN | e | 1:49 PM | | procedure are in the | | ) | | PDT | | results section. | + +--------+ + + + | CBC AND AUTO DIFF | Routin | 04/15/2019 | | Results for this | | | e | 1:48 PM | | procedure are in the | | | | PDT | | results section. | + +--------+ + + + | CBC, WITH | Routin | 04/15/2019 | | Results for this | | DIFFERENTIAL | e | 1:48 PM | | procedure are in the | | | | PDT | | results section. | + +--------+ + + + | COMPLETE METABOLIC | Routin | 04/15/2019 | | Results for this | | SET | e | 1:48 PM | | procedure are in the | | (NA,K,CL,CO2,BUN,CRE | | PDT | | results section. | | AT,GLUC,CA,AST,ALT,B | | | | | | TI TOTAL,ALK | | | | | | PHOS,ALB,PROT TOTAL) | | | | | + +--------+ + + + | ANTIBODY SCREEN | Routin | 04/15/2019 | | Results for this | | | e | 1:48 PM | | procedure are in the | | | | PDT | | results section. | + +--------+ + + + | TYPE AND SCREEN | Routin | 04/15/2019 | | Results for this | | | e | 1:48 PM | | procedure are in the | | | | PDT | | results section. | + +--------+ + + + | ABO & RH TYPE | Routin | 04/15/2019 | | Results for this | | | e | 1:48 PM | | procedure are in the | | | | PDT | | results section. | + +--------+ + + + | PHOSPHORUS, PLASMA | Routin | 04/15/2019 | | Results for this | | | e | 1:48 PM | | procedure are in the | | | | PDT | | results section. | + +--------+ + + + | BILIRUBIN DIRECT | Routin | 04/15/2019 | | Results for this | | | e | 1:48 PM | | procedure are in the | | | | PDT | | results section. | + +--------+ + + + | URIC ACID, PLASMA | Routin | 04/15/2019 | | Results for this | | | e | 1:48 PM | | procedure are in the | | | | PDT | | results section. | + +--------+ + + + | MAGNESIUM, PLASMA | Routin | 04/15/2019 | | Results for this | | | e | 1:48 PM | | procedure are in the | | | | PDT | | results section. | + +--------+ + + + | LDH TOTAL, PLASMA | Routin | 04/15/2019 | | Results for this | | | e | 1:48 PM | | procedure are in the | | | | PDT | | results section. 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 | + +--------+ + + + documented in this encounter Results [facility], WHOLE BLOOD (05/18/2019 9:00 AM PST) + + + + + + | Component | Value | Ref Range | Performed | Pathologist | | | | | At | Signature | + + + + + + | TACROLIMUS | 10.6Comment: DRAW tacro | 5.0 - 15.0 | [facility] | | | ([address]) | level prior to giving | ng/mL | LABORATORY | | | | 0900 dose | | SERVICES, | | | | | | SPECIAL IMM | | | | | | + COAG | | + + + + + + + + | Specimen | + + | Blood - Blood | | (substance) | + + + + + | Narrative | Performed At | + + + | Test performed by immunoassay using [employer] i2000. . | [facility] | | [...] | + + + + + | [facility] | [address] | [place] [address] | | | SERVICES SPECIAL | [address] | | | | IMM + COAG | | | | + + + + + RBC MORPHOLOGY (05/18/2019 12:35 AM PST) + + + + + [...] + + | [facility] | [address] | [place] [address] | | | SERVICES, CORE | [address] | | | + + + + + MANUAL DIFFERENTIAL (05/18/2019 12:35 AM PST) + + + + + [...] + + + + | LYMPHOCYTE | 11.3 (L) | 18.0 - 42.0 % | [facility] | | | % | | | LABORATORY | | | | | | SERVICES, | | | | | | CORE | | + + + + + + | MONOCYTE % | 10.4 (H)Comment: Some | 3.5 - 9.0 % | [facility] | | | | monocytes appear | | LABORATORY | | | | immature. | | SERVICES, | | | | | | CORE | | + + + + + + | EOSINOPHIL | 7.8 (H) | 1.0 - 3.0 % | [facility] | | | % | | | LABORATORY | | | | | | SERVICES, | | | | | | CORE | | + + + + + + | BASOPHIL % | 0.9 | 0.0 - 2.0 % | [facility] | | | | | | LABORATORY | | | | | | SERVICES, | | | | | | CORE | | + + + + + + | IG% | 0.0 | 0.0 - 1.0 % | [facility] | | | | | | LABORATORY | | | | | | SERVICES, | | | | | | CORE | | + + + + + + | NEUTROPHIL | 1.44 (L) | 1.80 - 7.70 | [facility] | | | # | | K/cu mm | LABORATORY | | | | | | SERVICES, | | | | | | CORE | | + + + + + + | LYMPHOCYTE | 0.23 (L) | 1.00 - 4.80 | [facility] [...] + + + + | EOSINOPHIL | 0.16 | 0.00 - 0.50 | [facility] | | | # | | K/cu mm | LABORATORY | | | | | | SERVICES, | | | | | | CORE | | + + + + + + | BASOPHIL # | 0.02 | 0.00 - 0.10 [...] + + | [facility] | [address] | [place] [address] | | | SERVICES, CORE | [address] | | | + + + + + CBC AND AUTO DIFF (05/18/2019 12:35 AM PST) + + + + + + | Component | Value | Ref Range | Performed | Pathologist | | | | | At | Signature | + + + + + + | WHITE CELL | 2.07 (L) | 3.50 - 10.80 | [facility] | | | COUNT | | K/cu mm | LABORATORY | | | | | | SERVICES, | | | | | | CORE | | + + + + + + | RED CELL | 3.16 (L) | 4.00 - 5.20 | [facility] | | | COUNT | | M/cu mm | LABORATORY | | | | | | SERVICES, | | | | | | CORE | | + + + + + + | HEMOGLOBIN | 8.8 (L) | 12.0 - 16.0 | [facility] | | | | | g/dL | LABORATORY | | | | | | SERVICES, | | | | | | CORE | | + + + + + + | HEMATOCRIT | 26.4 (L) | 36.0 - 46.0 % | [facility] | | | | | | LABORATORY | | | | | | SERVICES, | | | | | | CORE | | + + + + + + | MCV | 83.5 | 80.0 - 100.0 fL | [facility] [...] + + + + | PLATELET | 25 (L) | 150 - 400 K/cu | [facility] | | | COUNT | | mm | LABORATORY | | | | | | SERVICES, | | | | | | CORE | | + + + + + + | MPV | 11.2 | 9.7 - 12.3 fL | [facility] [...] + | [facility] | [address] | [place] [address] | | | SERVICES, CORE | [address] | | | + + + + + MAGNESIUM, PLASMA (05/18/2019 12:35 AM PST) + +-------+ + + + | Component | Value | Ref Range | Performed | Pathologist | | | | | At | Signature | + +-------+ + + + | MAGNESIUM,P | 1.6 | 1.6 - 2.6 mg/dL | [facility] [...] [facility] | [address] | [place] [address] | | | SERVICES, CORE | [address] | | | + + + + + PHOSPHORUS, PLASMA (05/18/2019 12:35 AM PST) + +-------+ + + + [...] | + + + + + | [facility] | [address] | [place] [address] | | | SERVICES, CORE | [address] | | | + + + + + COMPLETE METABOLIC SET (NA,K,CL,CO2,BUN,CREAT,GLUC,CA,AST,ALT,BILI TOTAL,ALK PHOS,ALB,PROT TOTAL) (05/18/2019 12:35 AM PST) + +---------+ + + + | Component | Value | Ref Range | Performed | Pathologist | | | | | At | Signature | + +---------+ + + + | GLUCOSE, | 93 | 70 - 99 mg/dL | [facility] [...] | | | LABORATORY | | | GABONESE | | | SERVICES, | | | | | | CORE | | + +---------+ + + + | EGFR NON | >60 | >60 mL/min | [facility] | | | -DORY | | | LABORATORY | | | [...] +---------+ + + + | CALCIUM, | 8.7 [...] +---------+ + + + | TOTAL | 6.2 [...] MDRD equation recommended by the National | [facility] | | Kidney Disease Education Program. Estimated [...] | + + + + + | [facility] | [address] | [place] [address] | | | SERVICES, CORE | [address] | | | + + + + + RBC MORPHOLOGY (05/17/2019 12:01 AM PST) + + + + [...] [facility] | [address] | [place] [address] | | | SERVICES, CORE | [address] | | | + + + + + CBC AND AUTO DIFF (05/17/2019 12:01 AM PST) + + + + + + | Component | Value | Ref Range | Performed | Pathologist | | | | | At | Signature | + + + + + + | WHITE CELL | 1.33 (L) | 3.50 - 10.80 | [facility] [...] + + + + | HEMOGLOBIN | 9.2 (L) | 12.0 - 16.0 | [facility] | | | | | g/dL | LABORATORY | | | | | | SERVICES, | | | | | | CORE | | + + + + + + | HEMATOCRIT | 26.7 (L) | 36.0 - 46.0 % | [facility] | | | | | | LABORATORY | | | | | | SERVICES, | | | | | | CORE | | + + + + + + | MCV | 82.9 | 80.0 - 100.0 fL | [facility] | | | | | | LABORATORY | | | | | | SERVICES, | | | | | | CORE | | + + + + + + | MCHC | 34.5 | 32.0 - 36.0 | [facility] | | | | | g/dL | LABORATORY | | | | | | SERVICES, | | | | | | CORE | | + + + + + + | RDW SD | 41.1 | 35.1 - 46.3 fL | [facility] | | | | | | LABORATORY | | | | | | SERVICES, | | | | | | CORE | | + + + + + + | PLATELET | 3 (LL) | 150 - 400 K/cu | [...] + + + + | NEUTROPHIL | 42.0 (L) | 50.0 - 70.0 % | [facility] | | | % | | | LABORATORY | | | | | | SERVICES, | | | | | | CORE | | + + + + + + | LYMPHOCYTE | 14.3 (L) | 18.0 - 42.0 % | [...] + + + | EOS % | 4.5 (H) | 1.0 - 3.0 % | [...] + + + + | IG% | 17.3 (H) | 0.0 - 1.0 % | [facility] | | | | | | LABORATORY | | | | | | SERVICES, | | | | | | CORE | | + + + + + + | NEUTROPHIL | 0.56 (L) | 1.80 - 7.70 | [facility] | | | # | | K/cu mm | LABORATORY | | | | | | SERVICES, | | | | | | CORE | | + + + + + + | LYMPHOCYTE | 0.19 (L) | 1.00 - 4.80 | [facility] [...] + + + | EOS # | 0.06 | 0.00 - 0.50 | [facility] | [...] + + + + | IG# | 0.23 (H) | 0.00 - 0.10 | [facility] [...] | + + + + + | [facility] | [address] | [place] [address] | | | SERVICES, CORE | [address] | | | + + + + + MAGNESIUM, PLASMA (05/17/2019 12:01 AM PST) + +-------+ + + [...] [facility] | [address] | [place] [address] | | | SERVICES, CORE | [address] | | | + + + + + PHOSPHORUS, PLASMA (05/17/2019 12:01 AM PST) + +-------+ + + [...] | + + + + + | [facility] | [address] | [place] [address] | | | SERVICES, CORE | [address] | | | + + + + + COMPLETE METABOLIC SET (NA,K,CL,CO2,BUN,CREAT,GLUC,CA,AST,ALT,BILI TOTAL,ALK PHOS,ALB,PROT TOTAL) (05/17/2019 12:01 AM PST) + +---------+ + + + | Component | Value | Ref Range | Performed | Pathologist | | | | | At | Signature | + +---------+ + + + | GLUCOSE, | 88 | 70 - 99 mg/dL | [facility] [...] +---------+ + + + | CREATININE | 0.69 | 0.60 - 1.10 | [facility] | | | PLASMA | | mg/dL | LABORATORY | | | (LAB) | | | SERVICES, | | | | | | CORE | | + +---------+ + + + | EGFR | >60 | >60 mL/min | [facility] | | | - | | | LABORATORY | | | GABONESE | | | SERVICES, | | | | | | CORE | | + +---------+ + + + | EGFR NON | >60 | >60 mL/min | [facility] | | | -DORY | | | LABORATORY | | | RICAN | | | SERVICES, | | | | | | CORE | | + +---------+ + + + | SODIUM, | 136 | 136 - 145 | [facility] | | | PLASMA | | mmol/L | LABORATORY | | | (LAB) | | | SERVICES, | | | | | | CORE | | + +---------+ + + + | POTASSIUM, | 4.2 | 3.4 - 5.0 | [facility] | [...] + + + | ALK PHOS | 85 | 42 - 98 U/L | [facility] [...] | + + + + + | [facility] | [address] | [place] [address] | | | SERVICES, [place] | [address] | | | + + + + + PRODUCT - PLATELET PHERESIS LEUKOREDUCED (05/16/2019 7:14 PM PST) + + + + + [...] + + + + | PRODUCT | [id number] | | [facility] | | | UNIT [...] + + + | UNIT RH | NEG | | [facility] | | | | [...] + + + + | EXPIRATION | [id number] | | [facility] | | | DATE | | | LABORATORY | | | | | | SERVICES, | | | | | | TRANSFUSION | | | | | | MEDICINE | | + + + + + + | BLOOD TYPE | 2800 | | [facility] | | | BARCODE | | | LABORATORY | | | | | | SERVICES, | | | | | | TRANSFUSION | | | | | | MEDICINE | | + + + + + + | BLOOD | [id number] | | [facility] | | | PRODUCT [...] [facility] | [address] | [place] [address] | | | SERVICES, | [address] | | | | TRANSFUSION MEDICINE | | | | + + + + + PRODUCT - PLATELET PHERESIS LEUKOREDUCED (05/16/2019 7:14 PM PST) + + + + + [...] + + + + | PRODUCT | [id number] | | [facility] | | | UNIT [...] + + + | UNIT RH | NEG | | [facility] | | | | [...] + + + + | EXPIRATION | [id number] | | [facility] | | | DATE | | | LABORATORY | | | | | | SERVICES, | | | | | | TRANSFUSION | | | | | | MEDICINE | | + + + + + + | BLOOD TYPE | 2800 | | [facility] | | | BARCODE | | | LABORATORY | | | | | | SERVICES, | | | | | | TRANSFUSION | | | | | | MEDICINE | | + + + + + + | BLOOD | [id number] | | [facility] | | | PRODUCT [...] [facility] | [address] | [place] [address] | | | SERVICES, | [address] | | | | TRANSFUSION MEDICINE | | | | + + + + + RBC MORPHOLOGY (05/16/2019 12:10 AM PST) + + + + + + | Component | Value | Ref Range | Performed | Pathologist | | | | | At | Signature | + + + + + + | DANITZAE | Present | | [facility] | | [...] + + + + + + | VACUOLATED | Present [...] [facility] | [address] | [place] [address] | | | SERVICES, CORE | [address] | | | + + + + + MANUAL DIFFERENTIAL (05/16/2019 12:10 AM PST) + + + + + + | Component | Value | Ref Range | Performed | Pathologist | | | | | At | Signature | + + + + + + | NEUTROPHIL | 70.8 (H) | 50.0 - 70.0 % | [facility] | | | % | | | LABORATORY | | | | | | SERVICES, | | | | | | CORE | | + + + + + + | LYMPHOCYTE | 10.1 (L) | 18.0 - 42.0 % | [facility] | | | % | | | LABORATORY | | | | | | SERVICES, | | | | | | CORE | | + + + + + + | MONOCYTE % | 10.1 (H) | 3.5 - 9.0 % | [facility] | | | | | | LABORATORY | | | | | | SERVICES, | | | | | | CORE | | + + + + + + | EOSINOPHIL | 7.9 (H) | 1.0 - 3.0 % | [...] + + + + | IG% | 0.0 | 0.0 - 1.0 % | [facility] | | | | | | LABORATORY | | | | | | SERVICES, | | | | | | CORE | | + + + + + + | ATYPICAL | 1.1 (H) | 0.0 % | [facility] | | | CELL % | | | LABORATORY | | | | | | SERVICES, | | | | | | CORE | | + + + + + + | NEUTROPHIL | 0.58 (L) | 1.80 - 7.70 | [facility] | | | # | | K/cu mm | LABORATORY | | | | | | SERVICES, | | | | | | CORE | | + + + + + + | LYMPHOCYTE | 0.08 (L) | 1.00 - 4.80 | [facility] | | | # | | K/cu mm | LABORATORY | | | | | | SERVICES, | | | | | | CORE | | + + + + + + | MONOCYTE # | 0.08 (L) | 0.10 - 0.90 | [facility] | | | | | K/cu mm | LABORATORY | | | | | | SERVICES, | | | | | | CORE | | + + + + + + | EOSINOPHIL | 0.06 | 0.00 - 0.50 | [facility] | [...] + + + + + + | ATYPICAL | 0.01 | K/cu mm | [facility] | | | CELLS # | | | LABORATORY | | [...] [facility] | [address] | [place] [address] | | | SERVICES, CORE | [address] | | | + + + + + CBC AND AUTO DIFF (05/16/2019 12:10 AM PST) + + + + + + | Component | Value | Ref Range | Performed | Pathologist | | | | | At | Signature | + + + + + + | WHITE CELL | 0.82 (L) | 3.50 - 10.80 | [facility] | | | COUNT | | K/cu mm | LABORATORY | | | | | | SERVICES, | | | | | | CORE | | + + + + + + | RED CELL | 3.07 (L) | 4.00 - 5.20 | [facility] [...] + + + + | HEMATOCRIT | 25.6 (L) | 36.0 - 46.0 % | [facility] | | | | | | LABORATORY | | | | | | SERVICES, | | | | | | CORE | | + + + + + + | MCV | 83.4 | 80.0 - 100.0 fL | [facility] | | | | | | LABORATORY | | | | | | SERVICES, | | | | | | CORE | | + + + + + + | MCHC | 33.6 | 32.0 - 36.0 | [facility] | | | | | g/dL | LABORATORY | | | | | | SERVICES, | | | | | | CORE | | + + + + + + | RDW SD | 40.1 | 35.1 - 46.3 fL | [facility] | | | | | | LABORATORY | | | | | | SERVICES, | | | | | | CORE | | + + + + + + | PLATELET | 3 (LL)Comment: Macro | 150 - 400 K/cu | [facility] | | | COUNT | platelets present. | mm | LABORATORY | | | | | | SERVICES, | | | | | | CORE | | + + + + + + | MPV | 13.2 (H) | 9.7 - 12.3 fL | [...] | + + + + + | [facility] | [address] | [place] [address] | | | SERVICES, CORE | [address] | | | + + + + + CMV PCR QUANTITATION, PLASMA (05/16/2019 12:10 AM PST) + + + + + [...] 2 fold may not reflect true | [facility] | | biological changes and [...] | | characteristics determined by the [facility] | | | Molecular Diagnostic Center. It has not been cleared or approved by | | | the Food and Drug Administration. FDA approval is not required for | | | clinical use of this test, and therefore validation was done as | | | required under the requirements of the Clinical Laboratory Improvement | | | Act of 1988. The [facility] | | | Diagnostic Center is a fully licensed and/or accredited clinical | | | laboratory under CLIA, CAP, and the [facility]. | | + + + + + + + + | Performing | Address | City/State/Zipcode | Phone Number | | Organization | | | | + + + + + | [facility] | [address] | [place] [address] | | | DIAGNOSTIC | [address] | | | | LABORATORIES | | | | + + + + + MAGNESIUM, PLASMA (05/16/2019 12:10 AM PST) + +---------+ + + + [...] [facility] | [address] | [place] [address] | | | SERVICES, CORE | [address] | | | + + + + + ASPERGILLUS GALACTOMANNAN ANTIGEN, SERUM (05/16/2019 12:10 AM PST) + + + + + [...] + + + | ASP GAL | 0.03 | <=0.49 Index | [facility] | | [...] | + + + + + | [facility] | [address] | [place] [address] | | | SERVICES, SPECIAL | [address] | | | | IMM + COAG | | | | + + + + + INR (05/16/2019 12:10 AM PST) + +-------+ + + + | Component | Value | Ref Range | Performed | Pathologist | | | | | At | Signature | + +-------+ + + + | INR | 0.95 | 0.90 - 1.20 INR | [facility] [...] for full anticoagulation: INR for Venous | [facility] | | Thromboembolism (2.0 - 3.0) INR INR for most | LABORATORY | | patients with mech. valves (2.5 - 3.5) INR | [facility] | + + + + + + + + | Performing | Address | City/State/Zipcode | Phone Number | | Organization | | | | + + + + + | [facility] | [address] | [place] [address] | | | LUZ[facility]IA FAN | [address] | | | + + + + + LDH TOTAL, PLASMA (05/16/2019 12:10 AM PST) + +---------+ + + + | Component | Value | Ref Range | Performed | Pathologist | | | | | At | Signature | + +---------+ + + + | LD TOTAL, | 129 | <=250 U/L | [facility] | | [...] [facility] | [address] | [place] [address] | | | SERVICES, CORE | [address] | | | + + + + + PHOSPHORUS, PLASMA (05/16/2019 12:10 AM PST) + +---------+ + + + | Component | Value | Ref Range | Performed | Pathologist | | | | | At | Signature | + +---------+ + + + | PHOSPHORUS, | 2.2 (L) | 2.4 - 4.7 mg/dL | [facility] [...] | + + + + + | [facility] | [address] | [place] [address] | | | SERVICES, CORE | [address] | | | + + + + + COMPLETE METABOLIC SET (NA,K,CL,CO2,BUN,CREAT,GLUC,CA,AST,ALT,BILI TOTAL,ALK PHOS,ALB,PROT TOTAL) (05/16/2019 12:10 AM PST) + +---------+ + + + | Component | Value | Ref Range | Performed | Pathologist | | | | | At | Signature | + +---------+ + + + | GLUCOSE, | 117 (H) | 70 - 99 mg/dL | [...] +---------+ + + + | CREATININE | 0.73 | 0.60 - 1.10 | [facility] | | | PLASMA | | mg/dL | LABORATORY | | | (LAB) | | | SERVICES, | | | | | | CORE | | + +---------+ + + + | EGFR | >60 | >60 mL/min | [facility] | | | - | | | LABORATORY | | | GABONESE | | | SERVICES, | | | | | | CORE | | + +---------+ + + + | EGFR NON | >60 | >60 mL/min | [facility] | | | -DORY | | | LABORATORY | | | [...] + + + | ALK PHOS | 74 | 42 - 98 U/L | [facility] [...] | + + + + + | [facility] | [address] [facility] [address] [facility] [address] | [place] [address] | | | SERVICES, LUZMARIA | [address] | | | + + + + + TACROLIMUS, WHOLE BLOOD (05/15/2019 8:13 AM PST) + + + + + + | Component | Value | Ref Range | Performed | Pathologist | | | | | At | Signature | + + + + + + | TACROLIMUS | 4.7 (L)Comment: DRAW | 5.0 - 15.0 | [facility] | | | ([address]) | tacro level prior to | ng/mL | LABORATORY | | | | giving 0900 dose | | SERVICES, | | | | | | SPECIAL IMM | | | | | | + COAG | | + + + + + + + + | Specimen | + + | Blood - Blood | | (substance) | + + + + + | Narrative | Performed At | + + + | Test performed by immunoassay using [employer] i2000. . | [facility] | | [...] | + + + + + | [facility] | [address] | [place] [address] | | | SERVICES, SPECIAL | [address] | | | | IMM + COAG | | | | + + + + + PRODUCT - RED CELLS LEUKOREDUCED (05/15/2019 1:53 AM PST) + + + + + [...] + + + + | PRODUCT | [id number] | | [facility] | | | UNIT [...] + + + + | EXPIRATION | [id number] | | [facility] | | | DATE [...] + + + + | BLOOD | [id number] | | [facility] | | | PRODUCT [...] [facility] | [address] | [place] [address] | | | SERVICES, | [address] | | | | TRANSFUSION MEDICINE | | | | + + + + + CBC AND AUTO DIFF (05/15/2019 12:04 AM PST) + + + + + + | Component | Value | Ref Range | Performed | Pathologist | | | | | At | Signature | + + + + + + | WHITE CELL | 0.49 (L) | 3.50 - 10.80 | [facility] | | | COUNT | | K/cu mm | LABORATORY | | | | | | SERVICES, | | | | | | CORE | | + + + + + + | RED CELL | 2.36 (L) | 4.00 - 5.20 | [facility] | | | COUNT | | M/cu mm | LABORATORY | | | | | | SERVICES, | | | | | | CORE | | + + + + + + | HEMOGLOBIN | 6.6 (L) | 12.0 - 16.0 | [facility] | | | | | g/dL | LABORATORY | | | | | | SERVICES, | | | | | | CORE | | + + + + + + | HEMATOCRIT | 19.2 (L) | 36.0 - 46.0 % | [facility] | | | | | | LABORATORY | | | | | | SERVICES, | | | | | | CORE | | + + + + + + | MCV | 81.4 | 80.0 - 100.0 fL | [facility] | | | | | | LABORATORY | | | | | | SERVICES, | | | | | | CORE | | + + + + + + | MCHC | 34.4 | 32.0 - 36.0 | [facility] | | | | | g/dL | LABORATORY | | | | | | SERVICES, | | | | | | CORE | | + + + + + + | RDW SD | 39.2 | 35.1 - 46.3 fL | [facility] | | | | | | LABORATORY | | | | | | SERVICES, | | | | | | CORE | | + + + + + + | PLATELET | 4 (LL) | 150 - 400 K/cu | [...] + + + + | NEUTROPHIL | 51.1 | 50.0 - 70.0 % | [facility] | | | % | | | LABORATORY | | | | | | SERVICES, | | | | | | CORE | | + + + + + + | LYMPHOCYTE | 16.3 (L) | 18.0 - 42.0 % | [facility] | | | % | | | LABORATORY | | | | | | SERVICES, | | | | | | CORE | | + + + + + + | MONOCYTE % | 20.4 (H) | 3.5 - 9.0 % | [...] + + + + | IG% | 10.2 (H) | 0.0 - 1.0 % | [facility] | | | | | | LABORATORY | | | | | | SERVICES, | | | | | | CORE | | + + + + + + | NEUTROPHIL | 0.25 (L) | 1.80 - 7.70 | [facility] | | | # | | K/cu mm | LABORATORY | | | | | | SERVICES, | | | | | | CORE | | + + + + + + | LYMPHOCYTE | 0.08 (L) | 1.00 - 4.80 | [facility] [...] + + + + | IG# | 0.05 | 0.00 - 0.10 | [...] Performed At | + + + | Less than 10% reactive lymph Increased immature granulocytes (IG) | [facility] | | define a left shift. Immature granulocytes (IG) are an automated count | LABORATORY | | of metamyelocytes, myelocytes and promyelocytes. Bands are not | SERVICES, CORE | | included in the IG count. Bands are included in the neutrophil count. | | + + + + + + + + | Performing | Address | City/State/Zipcode | Phone Number | | Organization | | | | + + + + + | [facility] | [address] | [place] [address] | | | SERVICES, CORE | [address] | | | + + + + + MAGNESIUM, PLASMA (05/15/2019 12:04 AM PST) + +-------+ + + + [...] [facility] | [address] | [place] [address] | | | SERVICES, CORE | [address] | | | + + + + + PHOSPHORUS, PLASMA (05/15/2019 12:04 AM PST) + +---------+ + + + | Component | Value | Ref Range | Performed | Pathologist | | | | | At | Signature | + +---------+ + + + | PHOSPHORUS, | 2.3 (L) | 2.4 - 4.7 mg/dL | [facility] [...] | + + + + + | [facility] | [address] [facility] [address] [facility] [address] | [place] [address] | | | SERVICES, CORE | [address] | | | + + + + + COMPLETE METABOLIC SET (NA,K,CL,CO2,BUN,CREAT,GLUC,CA,AST,ALT,BILI TOTAL,ALK PHOS,ALB,PROT TOTAL) (05/15/2019 12:04 AM PST) + +---------+ + + + | Component | Value | Ref Range | Performed | Pathologist | | | | | At | Signature | + +---------+ + + + | GLUCOSE, | 134 (H) | 70 - 99 mg/dL | [...] | | | LABORATORY | | | GABONESE | | | SERVICES, | | | | | | CORE | | + +---------+ + + + | EGFR NON | >60 | >60 mL/min | [facility] | | | -DORY | | | LABORATORY | | | [...] +---------+ + + + | CALCIUM, | 7.7 (L) | 8.6 - 10.2 | [facility] | | | PLASMA | | mg/dL | LABORATORY | | | (LAB) | | | SERVICES, | | | | | | CORE | | + +---------+ + + + | CALCIUM(ALB | 8.8 [...] +---------+ + + + | TOTAL | 5.3 (L) | 6.4 - 8.2 g/dL | [facility] | | | PROTEIN, | | | LABORATORY | | | PLASMA | | | SERVICES, | | | (LAB) | | | CORE | | + +---------+ + + + | ALBUMIN, | 2.6 (L) | 3.5 - 4.7 g/dL | [facility] | | | PLASMA | | | LABORATORY | | | (LAB) | | | SERVICES, | | | | | | CORE | | + +---------+ + + + | ALK PHOS | 71 | 42 - 98 U/L | [facility] [...] | + + + + + | [facility] | [address] [facility] | [place] [address] | | | LUZMARIA FAN | [address] | | | + + + + + RBC MORPHOLOGY (05/14/2019 12:14 AM PST) + + + + + [...] [facility] | [address] | [place] [address] | | | SERVICES, CORE | [address] | | | + + + + + MANUAL DIFFERENTIAL (05/14/2019 12:14 AM PST) + + + + + + | Component | Value | Ref Range | Performed | Pathologist | | | | | At | Signature | + + + + + + | NEUTROPHIL | 49.1 (L) | 50.0 - 70.0 % | [facility] | | | % | | | LABORATORY | | | | | | SERVICES, | | | | | | CORE | | + + + + + + | LYMPHOCYTE | 11.3 (L) | 18.0 - 42.0 % | [facility] | | | % | | | LABORATORY | | | | | | SERVICES, | | | | | | CORE | | + + + + + + | MONOCYTE % | 20.8 (H) | 3.5 - 9.0 % | [facility] | | | | | | LABORATORY | | | | | | SERVICES, | | | | | | CORE | | + + + + + + | EOSINOPHIL | 7.5 (H) | 1.0 - 3.0 % | [facility] | | | % | | | LABORATORY | | | | | | SERVICES, | | | | | | CORE | | + + + + + + | BASOPHIL % | 1.9 | 0.0 - 2.0 % | [facility] | | | | | | LABORATORY | | | | | | SERVICES, | | | | | | CORE | | + + + + + + | IG% | 9.4 (H) | 0.0 - 1.0 % | [facility] | | | | | | LABORATORY | | | | | | SERVICES, | | | | | | CORE | | + + + + + + | NEUTROPHIL | 0.26 (L) | 1.80 - 7.70 | [facility] | | | # | | K/cu mm | LABORATORY | | | | | | SERVICES, | | | | | | CORE | | + + + + + + | LYMPHOCYTE | 0.06 (L) | 1.00 - 4.80 | [facility] | | | # | | K/cu mm | LABORATORY | | | | | | SERVICES, | | | | | | CORE | | + + + + + + | MONOCYTE # | 0.11 | 0.10 - 0.90 | [facility] | [...] + + + | BASOPHIL # | 0.01 | 0.00 - 0.10 | [facility] | | | | | K/cu mm | LABORATORY | | | | | | SERVICES, | | | | | | CORE | | + + + + + + | IG# | 0.05 | 0.00 - 0.10 | [...] not included in the IG count. | [facility] | | Bands are included in the neutrophil count. | | + + + + + + + + | Performing | Address | City/State/Zipcode | Phone Number | | Organization | | | | + + + + + | [facility] | [address] | [place] [address] | | | LUZ[facility]IA FAN | [address] | | | + + + + + CBC AND AUTO DIFF (05/14/2019 12:14 AM PST) + + + + + + | Component | Value | Ref Range | Performed | Pathologist | | | | | At | Signature | + + + + + + | WHITE CELL | 0.53 (L) | 3.50 - 10.80 | [facility] | | | COUNT | | K/cu mm | LABORATORY | | | | | | SERVICES, | | | | | | CORE | | + + + + + + | RED CELL | 2.67 (L) | 4.00 - 5.20 | [facility] [...] + + + + | HEMATOCRIT | 22.0 (L) | 36.0 - 46.0 % | [...] + + + + | MCHC | 33.6 | 32.0 - 36.0 | [facility] | | | | | g/dL | LABORATORY | | | | | | SERVICES, | | | | | | CORE | | + + + + + + | RDW SD | 39.8 | 35.1 - 46.3 fL | [facility] | | | | | | LABORATORY | | | | | | SERVICES, | | | | | | CORE | | + + + + + + | PLATELET | 9 (LL) | 150 - 400 K/cu | [...] + | [facility] | [address] | [place] [address] | | | SERVICES, CORE | [address] | | | + + + + + ANTIBODY SCREEN (05/14/2019 12:14 AM PST) + + + + + [...] [facility] | [address] | [place] [address] | | | SERVICES, | [address] | | | | TRANSFUSION MEDICINE | | | | + + + + + ABO & RH TYPE (05/14/2019 12:14 AM PST) + + + + + [...] | + + + + + | [facility] | [address] | [place] [address] | | | SERVICES, | [address] | | | | TRANSFUSION MEDICINE | | | | + + + + + VERITO-SEVILLA VIRUS PCR, PLASMA (05/14/2019 12:14 AM PST) + + + + + [...] | | performance characteristics determined by the [facility] Molecular | | | Diagnostics Center. It has not been cleared or approved by the Food | | | and Drug Administration. FDA approval is not required for clinical | | | use of this test, and therefore validation was done as required under | | | the requirements of the Clinical Laboratory Improvement Act of 1988. | | | The [facility] is a fully licensed and/or accredited clinical laboratory | | | under CLIA, CAP, and the [facility]. References: 1) | | | Phong et al. Laboratory assays for EBV-related disease. J [facility] | | | Diagn 10: 279-292, 2008. 2) Khalida et al. EBV viral load and | | | disease prediction in a large cohort of allogeneic stem cell | | | transplant recipients. Clin Infect Dis 45: 1305-9, 2006. 3) | | | Manjula BEAR, Barrera T, Bailee P, Isaura SK, Miguel A. Herpesvirus | | | prevalence and viral load in healthy blood donors by quantitative | | | real-time polymerase chain reaction. Transfusion 2008;48:6334-4730. | | | 4) Bassam BEARDEN, Genny SCOTTM, Félix I, van keshia Kristen W, et al. | | | Frequent monitoring of Verito-Sevilla virus DNA load in unfractionated | | | whole blood is essential for early detection of posttransplant | | | lymphoproliferative disease in high-risk patients. Blood | | | 2001;97(5):1627-6749. | | + + + + + + + + | Performing | Address | City/State/Zipcode | Phone Number | | Organization | | | | + + + + + | [facility] | [address] | [place] [address] | | | DIAGNOSTIC | [address] | | | | LABORATORIES | | | | + + + + + HUMAN HERPES VIRUS 6 PCR (PLASMA OR CSF) (05/14/2019 12:14 AM PST) + + + + + [...] + + + + | HUMAN | 116,000 | cpy/mL | [facility] | | | HERPES | | | REG UNIV | | | VIRUS 6 PCR | | | PTH - INTFC | | + + + + + + | INTERPRETAT | Detected (A)Comment: | Not Detected | [facility] | | | ION - HHV6 | Performed by [facility] | | REG UNIV | | | QUANT | Laboratories,[address] | | PTH - INTFC | | | | [place] [address] | | | | | | [phone].[facility] | | | | | | Zeferino montelongo MD, | | | | | | Lab. Director | | | | + + + + + + | HHV6 LOG | 5.1Comment: INTERPRETIVE | log | [facility] | | | | INFORMATION: Human | | REG UNIV | | | | Herpesvirus 6 by | | PTH - INTFC | | | | Quantitative PCR The [...] A: | | | | | | [employer] | | | | + + + + + + | HHV6 TYPE | Type B | | [facility] | | | | | | REG UNIV | | [...] [facility] | [address] | [place], [place] | | | UNIV PTH - INTFC | | [id number] | | + + + + + MAGNESIUM, PLASMA (05/14/2019 12:14 AM PST) + +-------+ + + + | Component | Value | Ref Range | Performed | Pathologist | | | | | At | Signature | + +-------+ + + + | MAGNESIUM,P | 2.4 | 1.6 - 2.6 mg/dL | [facility] [...] [facility] | [address] | [place] [address] | | | SERVICES, CORE | [address] | | | + + + + + PHOSPHORUS, PLASMA (05/14/2019 12:14 AM PST) + +---------+ + + + | Component | Value | Ref Range | Performed | Pathologist | | | | | At | Signature | + +---------+ + + + | PHOSPHORUS, | 2.0 (L) | 2.4 - 4.7 mg/dL | [facility] [...] | + + + + + | [facility] | [address] [facility] | [place] [address] | | | SERVICES, CORE | [address] | | | + + + + + COMPLETE METABOLIC SET (NA,K,CL,CO2,BUN,CREAT,GLUC,CA,AST,ALT,BILI TOTAL,ALK PHOS,ALB,PROT TOTAL) (05/14/2019 12:14 AM PST) + +---------+ + + + [...] | | | LABORATORY | | | GABONESE | | | SERVICES, | | | | | | CORE | | + +---------+ + + + | EGFR NON | >60 | >60 mL/min | [facility] | | | -DORY | | | LABORATORY | | | RICAN | | | SERVICES, | | | | | | CORE | | + +---------+ + + + | SODIUM, | 136 [...] +---------+ + + + | CALCIUM, | 7.9 (L) | 8.6 - 10.2 | [facility] [...] | + + + + + | [facility] | [address] [facility] | [place] [address] | | | LUZMARIA FAN | [address] | | | + + + + + CHIMERISM SORTED CELLS, DNA, BLOOD (KDL) (05/13/2019 3:39 PM PST) + + + + + + | Component | Value | Ref Range | Performed | Pathologist | | | | | At | Signature | + + + + + + | CHIMERISM | See Interpretation | | [facility] | | | SORTED | | | DIAGNOSTIC | | | CELLS, DNA, | | | | | | BLOOD | | | LABORATORIE | | | | | | S | | + + + + + + | INTERPRETAT | Donor #1 Name/ID: EVELIOP | | [facility] | | | ION | [id number] #1 | | DIAGNOSTIC | | | | Gender: MaleDonor #2 | | | | | | Name/ID: NMDP | | LABORATORIE | | | | [id number] #2 | | S | | | | Gender: FemaleDate of | | | | | | Transplant: | | | | | | 04/22/2019Chimerism | | | | | | Results (Sorted | | | | | | Cells):CD3+ T-cells: | | | | | | Insufficient for | | | | | | [id number] Myeloid | | | | | | cells: 0% Host; 100% | | | | | | Donor #2 (NMDP | | | | | | [id number]); No | | | | | | Detectable Donor #1 | | | | | | (NMDP 3514-3131-0)CD19+ | | | | | | B-cells: Insufficient | | | | | | for jtqyurfvSY35+ | | | | | | NK-cells: 0% Host; 100% | | | | | | Donor #2 (NMDP | | | | | | 3911-7257-1); No | | | | | | Detectable Donor #1 | | | | | | (NMDP 9833-2077-0)Sorted | | | | | | Cell Purity (Reported | | | | | | by the [facility] Special | | | | | | Immunology | | | | | | Laboratory):CD3+ = 5,000 | | | | | | cells; Purity not | | | | | | performed.CD33+ = | | | | | | 150,000 cells; 100% | | | | | | rgpkRQ63+ = 111 cells; | | | | | | Purity not | | | | | | performed.CD56+ = | | | | | | 600,000 cells; 96% | | | | | | purePCR-based [...] | | | | | | the myeloid cell | | | | | | (CD33+) and NK-cell | | | | | | (CD56+) lineages. 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 There are | | | | | | no detectable signals | | | | | | from donor #1 (NMDP | | | | | | 9120-9450-0). Please | | | | | | note that minor cell | | | | | | populations of less than | | | | | | 5% (of any lineage) may | | | | | | not be detected (i.e., | | | | | | the low-level analytical | | | | | | detection sensitivity | | | | | | of the assay). The CD3 | | | | | | and CD19 sorted cells | | | | | | were insufficient in | | | | | | number for a successful | | | | | | chimerism analysis. | | | | + + + + + + | METHOD(S) | The laboratory received | | [facility] | | | | specimens from the [...] CD3+ | | | | | | T-cells, CD33+ myeloid | | | | | | cells, CD19+ B-Cells, | | | | | | and CD56+ NK-cells are | | | | | | isolated to high purity | | | | | | and genomic DNA is | | | | | | prepared. [...] | | | | | | loci [id number], [id number], | | | | | | O2P931, CSF1PO, [id number], | | | | | | THO1, [id number], [id number], | | | | | | [id number], [id number], vWA, | | | | | | TPOX, D18S51, [id number], | | | | | | FGA [...] | This test was developed | | [facility] | | | | and its performance | | DIAGNOSTIC | | | | characteristics | | | | | | determined by the [facility] | | LABORATORIE | | | | [facility] | | S | [...] | | | | | (CLIA). The [facility] | | | | | | Diagnostics | | | | | | Laboratories are fully | | | | | | licensed by the state of | | | | | | [place] under CLIA and | | | | | | are accredited by the | | | | | | [employer] | | | | | | [employer] ([employer]). | | | | | | Utilization Management Um Nurse: | | | | | | Tayo Singletary, | | | | | | Isabela, Ph.DReviewed | | | | | | and electronically | | | | | | signed by Beverly | | | | | | Marta | | | | | | 05/24/2019 2:41 PM | | | | + + + + + + + + | Specimen | + + | Blood - Blood | | (substance) | + + + + + + + | Performing | Address | City/State/Zipcode | Phone Number | | Organization | | | | + + + + + | [facility] | [address] | [place] [address] | | | DIAGNOSTIC | [address] | | | | LABORATORIES | | | | + + + + + CMV PCR QUANTITATION, PLASMA (05/13/2019 3:39 PM PST) + + + + + [...] | characteristics determined by the [facility] | | | [facility]. It has not been cleared or approved by | | | the Food and Drug Administration. FDA approval is not required for | | | clinical use of this test, and therefore validation was done as | | | required under the requirements of the Clinical Laboratory Improvement | | | Act of 1988. The [facility] | | | [facility] is a fully licensed and/or accredited clinical | | | laboratory under CLIA, CAP, and the [facility]. | | + + + + + + + + | Performing | Address | City/State/[facility] | Phone Number | | Organization | | | | + + + + + | [facility] | [address] | [place] [address] | | | DIAGNOSTIC | [address] | | | | LABORATORIES | | | | + + + + + CHIMERISM SORTED CELLS, DNA, BLOOD (05/13/2019 3:39 PM PST) + +---------+ + + + [...] +---------+ + + + | CELLS | 5,000 | | [facility] | | | SORTED [...] +---------+ + + + | CELLS | 111 | | [facility] | | | SORTED [...] +---------+ + + + | CELLS | 600,000 | | [facility] | | | SORTED [...] + + | PURITY - 4 | 100.0 | % | [facility] | | | [...] [facility] | [address] | [place] [address] | | | SERVICES, SPECIAL | [address] | | | | IMM + COAG | | | | + + + + + RESPIRATORY PATHOGEN PANEL PCR (05/13/2019 3:39 PM PST) + + + + + [...] Specimen | + + | Swab - Nasopharynx | + + + + + + + | Performing | Address | City/State/Zipcode | Phone Number | | Organization | | | | + + + + + | [facility] | [address] | [place] [address] | | | SERVICES, CORE | [address] | | | + + + + + MAGNESIUM, PLASMA (05/13/2019 11:26 AM PST) + +-------+ + + + | Component | Value | Ref Range | Performed | Pathologist | | | | | At | Signature | + +-------+ + + + | MAGNESIUM,P | 1.6 | 1.6 - 2.6 mg/dL | [facility] [...] At | + + + | | [facility] | | | LABORATORY | | | SERVICES, CORE | + + + + + + + + | Performing | Address | City/State/Zipcode | Phone Number | | Organization | | | | + + + + + | [facility] | [address] | [place] [address] | | | SERVICES, CORE | [address] | | | + + + + + PHOSPHORUS, PLASMA (05/13/2019 11:26 AM PST) + +-------+ + + + [...] At | + + + | | [facility] | | | LABORATORY | | | MENG CORE | + + + + + + + + | Performing | Address | City/State/Zipcode | Phone Number | | Organization | | | | + + + + + | [facility] | [address] | [place] [address] | | | LUZMARIA FAN | [address] | | | + + + + + POTASSIUM, PLASMA (05/13/2019 11:26 AM PST) + +---------+ + + + [...] At | + + + | | [facility] | | | LABORATORY | | | LUZMARIA FAN | + + + + + + + + | Performing | Address | City/State/Zipcode | Phone Number | | Organization | | | | + + + + + | [facility] | [address] | [place] [address] | | | LUZMARIA FAN | [address] | | | + + + + + RBC MORPHOLOGY (05/13/2019 12:01 AM PST) + + + + [...] + + + + + + | SKYLER CELLS | 1+(10-25cells/HPF) | | [facility] | | [...] | + + + + + | [facility] | [address] | [place] [address] | | | SERVICES, CORE | [address] | | | + + + + + CBC AND AUTO DIFF (05/13/2019 12:01 AM PST) + + + + + + | Component | Value | Ref Range | Performed | Pathologist | | | | | At | Signature | + + + + + + | WHITE CELL | 0.35 (L) | 3.50 - 10.80 | [facility] [...] + + + + | HEMATOCRIT | 21.5 (L) | 36.0 - 46.0 % | [facility] | | | | | | LABORATORY | | | | | | SERVICES, | | | | | | CORE | | + + + + + + | MCV | 81.4 | 80.0 - 100.0 fL | [facility] | | | | | | LABORATORY | | | | | | SERVICES, | | | | | | CORE | | + + + + + + | MCHC | 34.0 | 32.0 - 36.0 | [facility] | | | | | g/dL | LABORATORY | | | | | | SERVICES, | | | | | | CORE | | + + + + + + | RDW SD | 39.7 | 35.1 - 46.3 fL | [facility] [...] + + + + | NEUTROPHIL | 54.2 | 50.0 - 70.0 % | [facility] | | | % | | | LABORATORY | | | | | | SERVICES, | | | | | | CORE | | + + + + + + | LYMPHOCYTE | 14.3 (L) | 18.0 - 42.0 % | [facility] | | | % | | | LABORATORY | | | | | | SERVICES, | | | | | | CORE | | + + + + + + | MONOCYTE % | 28.6 (H) | 3.5 - 9.0 % | [facility] | | | | | | LABORATORY | | | | | | SERVICES, | | | | | | CORE | | + + + + + + | EOS % | 2.9 | 1.0 - 3.0 % | [facility] [...] + + + + | IG% | 0.0 | 0.0 - 1.0 % | [facility] | | | | | | LABORATORY | | | | | | SERVICES, | | | | | | CORE | | + + + + + + | NEUTROPHIL | 0.19 (L) | 1.80 - 7.70 | [facility] | | | # | | K/cu mm | LABORATORY | | | | | | SERVICES, | | | | | | CORE | | + + + + + + | LYMPHOCYTE | 0.05 (L) | 1.00 - 4.80 | [facility] [...] | + + + + + | [facility] | [address] | [place] [address] | | | SERVICES, CORE | [address] | | | + + + + + MAGNESIUM, PLASMA (05/13/2019 12:01 AM PST) + +-------+ + + + | Component | Value | Ref Range | Performed | Pathologist | | | | | At | Signature | + +-------+ + + + | MAGNESIUM,P | 1.8 | 1.6 - 2.6 mg/dL | [facility] | | | L[facility] | | | [...] | + + + + + | [facility] | [address] | [place] [address] | | | SERVICES, CORE | [address] | | | + + + + + PHOSPHORUS, PLASMA (05/13/2019 12:01 AM PST) + +---------+ + + + | Component | Value | Ref Range | Performed | Pathologist | | | | | At | Signature | + +---------+ + + + | PHOSPHORUS, | 1.8 (L) | 2.4 - 4.7 mg/dL | [facility] [...] [facility] | [address] | [place] [address] | | | SERVICES, CORE | [address] | | | + + + + + COMPLETE METABOLIC SET (NA,K,CL,CO2,BUN,CREAT,GLUC,CA,AST,ALT,BILI TOTAL,ALK PHOS,ALB,PROT TOTAL) (05/13/2019 12:01 AM PST) + +---------+ + + + | Component | Value | Ref Range | Performed | Pathologist | | | | | At | Signature | + +---------+ + + + | GLUCOSE, | 178 (H) | 70 - 99 mg/dL | [...] | | | LABORATORY | | | GABONESE | | | SERVICES, | | | | | | CORE | | + +---------+ + + + | EGFR NON | >60 | >60 mL/min | [facility] | | | -DORY | | | LABORATORY | | | [...] +---------+ + + + | POTASSIUM, | 2.6 (L) | 3.4 - 5.0 | [facility] [...] + + + | ALT (SGPT) | 13 | <=60 U/L | [facility] | | [...] [facility] | [address] | [place] [address] | | | SERVICES, CORE | [address] | | | + + + + + CK, PLASMA (05/12/2019 1:39 PM PST) + +--------+ + + + | Component | Value | Ref Range | Performed | Pathologist | | | | | At | Signature | + +--------+ + + + | CK | 29 (L) | 38 - 234 U/L | [facility] | | | | | | LABORATORY | | | | | | SERVICES, | | | | | | CORE | | + +--------+ + + + + + | Specimen | + + | Blood - Blood | | (substance) | + + + + + + + | Performing | Address | City/State/Zipcode | Phone Number | | Organization | | | | + + + + + | [facility] | [address] | [place] [address] | | | SERVICES, CORE | [address] | | | + + + + + PRODUCT - PLATELET PHERESIS LEUKOREDUCED (05/12/2019 2:08 AM PST) + + + + + [...] + + + + | PRODUCT | [id number] | | [facility] | | | UNIT [...] + + + + | EXPIRATION | [id number] | | [facility] | | | DATE [...] + + + + | BLOOD | [id number] | | [facility] | | | PRODUCT [...] | + + + + + | [facility] | [address] | [place] [address] | | | SERVICES, | [address] | | | | TRANSFUSION MEDICINE | | | | + + + + + RBC MORPHOLOGY (05/12/2019 12:21 AM PST) + + + + + [...] [facility] | [address] | [place] [address] | | | SERVICES, CORE | [address] | | | + + + + + MANUAL DIFFERENTIAL (05/12/2019 12:21 AM PST) + + + + + + | Component | Value | Ref Range | Performed | Pathologist | | | | | At | Signature | + + + + + + | NEUTROPHIL | 55.6 | 50.0 - 70.0 % | [facility] | | | % | | | LABORATORY | | | | | | SERVICES, | | | | | | CORE | | + + + + + + | LYMPHOCYTE | 14.3 (L) | 18.0 - 42.0 % | [facility] | | | % | | | LABORATORY | | | | | | SERVICES, | | | | | | CORE | | + + + + + + | MONOCYTE % | 24.6 (H) | 3.5 - 9.0 % | [facility] | | | | | | LABORATORY | | | | | | SERVICES, | | | | | | CORE | | + + + + + + | EOSINOPHIL | 2.4 | 1.0 - 3.0 % | [facility] | | | % | | | LABORATORY | | | | | | SERVICES, | | | | | | CORE | | + + + + + + | BASOPHIL % | 0.8 | 0.0 - 2.0 [...] + + + + + + | ATYPICAL | 0.8 (H)Comment: Atypical | 0.0 % | [facility] | | | CELL % | cells with fine | | LABORATORY | | | | chromatin, high N:C | | SERVICES, | | | | ratio, prominent | | CORE | | | | nucleoli and dark blue | | | | | | cytoplasm. | | | | + + + + + + | NEUTROPHIL | 0.33 (L) | 1.80 - 7.70 | [facility] | | | # | | K/cu mm | LABORATORY | | | | | | SERVICES, | | | | | | CORE | | + + + + + + | LYMPHOCYTE | 0.09 (L) | 1.00 - 4.80 | [facility] | | | # | | K/cu mm | LABORATORY | | | | | | SERVICES, | | | | | | CORE | | + + + + + + | MONOCYTE # | 0.15 | 0.10 - 0.90 | [facility] | | | | | K/cu mm | LABORATORY | | | | | | SERVICES, | | | | | | CORE | | + + + + + + | EOSINOPHIL | 0.01 | 0.00 - 0.50 | [...] + + + + + + | ATYPICAL | 0.00 | K/cu mm | [facility] | | | CELLS # | | | LABORATORY | | [...] | + + + + + | [facility] | [address] | [place] [address] | | | SERVICES, CORE | [address] | | | + + + + + CBC AND AUTO DIFF (05/12/2019 12:21 AM PST) + + + + + + | Component | Value | Ref Range | Performed | Pathologist | | | | | At | Signature | + + + + + + | WHITE CELL | 0.60 (L) | 3.50 - 10.80 | [facility] [...] + + + + | HEMATOCRIT | 24.6 (L) | 36.0 - 46.0 % | [facility] | | | | | | LABORATORY | | | | | | SERVICES, | | | | | | CORE | | + + + + + + | MCV | 81.2 | 80.0 - 100.0 fL | [facility] | | | | | | LABORATORY | | | | | | SERVICES, | | | | | | CORE | | + + + + + + | MCHC | 34.1 | 32.0 - 36.0 | [facility] | | | | | g/dL | LABORATORY | | | | | | SERVICES, | | | | | | CORE | | + + + + + + | RDW SD | 39.5 | 35.1 - 46.3 fL | [facility] | | | | | | LABORATORY | | | | | | SERVICES, | | | | | | CORE | | + + + + + + | PLATELET | 5 (LL) | 150 - 400 K/cu | [...] | + + + + + | [facility] | [address] | [place] [address] | | | SERVICES, CORE | [address] | | | + + + + + MAGNESIUM, PLASMA (05/12/2019 12:21 AM PST) + +---------+ + + + [...] [facility] | [address] | [place] [address] | | | MENG, CORE | [address] | | | + + + + + LDH TOTAL, PLASMA (05/12/2019 12:21 AM PST) + +---------+ + + + | Component | Value | Ref Range | Performed | Pathologist | | | | | At | Signature | + +---------+ + + + | LD TOTAL, | 142 | <=250 U/L | [facility] | | [...] [facility] | [address] | [place] [address] | | | SERVICES, CORE | [address] | | | + + + + + PHOSPHORUS, PLASMA (05/12/2019 12:21 AM PST) + +-------+ + + + [...] | + + + + + | [facility] | [address] [facility] | [place] [address] | | | SERVICES, CORE | [address] | | | + + + + + COMPLETE METABOLIC SET (NA,K,CL,CO2,BUN,CREAT,GLUC,CA,AST,ALT,BILI TOTAL,ALK PHOS,ALB,PROT TOTAL) (05/12/2019 12:21 AM PST) + +---------+ + + + | Component | Value | Ref Range | Performed | Pathologist | | | | | At | Signature | + +---------+ + + + | GLUCOSE, | 115 (H) | 70 - 99 mg/dL | [...] +---------+ + + + | CREATININE | 0.67 | 0.60 - 1.10 | [facility] | | | PLASMA | | mg/dL | LABORATORY | | | (LAB) | | | SERVICES, | | | | | | CORE | | + +---------+ + + + | EGFR | >60 | >60 mL/min | [facility] | | | - | | | LABORATORY | | | GABONESE | | | SERVICES, | | | | | | CORE | | + +---------+ + + + | EGFR NON | >60 | >60 mL/min | [facility] | | | -DORY | | | LABORATORY | | | [...] +---------+ + + + | POTASSIUM, | 3.1 (L) | 3.4 - 5.0 | [facility] [...] + + + | TOTAL CO2, | 28 | 21 - 32 mmol/L | [facility] [...] +---------+ + + + | AST(SGOT) | 5 | <=41 U/L | [facility] | | [...] | + + + + + | [facility] | [address] | [place] [address] | | | LUZMARIA FAN | [address] | | | + + + + + X-RAY CHEST 2 VIEW (05/11/2019 12:41 PM PST) + + | Specimen | + + | | + + + + + | Narrative | Performed At | + + + | EXAM: CHEST 2 VIEWS HISTORY: fever COMPARISON: 04/28/2019 | [facility] | | FINDINGS: Left IJ Groshong catheter remains in place with tip | RADIOLOGY VOICE | | in the lower superior vena cava. The cardiomediastinal contour is | RECOGNITION 2 | | normal. The lungs are clear. There is no pleural effusion or | | | pneumothorax. There is no pulmonary edema. The bones are intact. | | | IMPRESSION: Clear lungs. I have personally reviewed the images | | | and, if necessary, edited the report. I agree with the report as now | | | presented. Final signature: David Sloan MD 05/11/2019 12:50 | | | PM Preliminary: David Sloan MD Dictation initiated: David | | | MD Luther 05/11/2019 12:50 PM | | + + + + + | Procedure Note | + + | Service Account, Radiant Res In Interface - 05/11/2019 12:51 PM PST EXAM: CHEST 2 | | VIEWS HISTORY: fever COMPARISON: 04/28/2019 FINDINGS: Left IJ Groshong catheter | | remains in place with tip in the lower superior vena cava. The cardiomediastinal contour | | is normal. The lungs are clear. There is no pleural effusion or pneumothorax. There is | | no pulmonary edema. The bones are intact. IMPRESSION: Clear lungs. I have personally | | reviewed the images and, if necessary, edited the report. I agree with the report as now | | presented. Final signature: David Sloan MD 05/11/2019 12:50 PM Preliminary: David | | MD Luther Dictation initiated: David Sloan MD 05/11/2019 12:50 PM | |Left IJ Groshong catheter remains in place with tip in the lower superior vena cava. The ca rdiomediastinal contour is normal. The lungs are clear. There is no pleural effusion or pneu mothorax. There is no pulmonary edema. The bones are intact. | | | |IMPRESSION: | | | |Clear lungs. | | | |I have personally reviewed the images and, if necessary, edited the report. I agree with th e report as now presented. | | | |Final signature: David Sloan MD 05/11/2019 12:50 PM | |Preliminary: David Sloan MD | |Dictation initiated: David Sloan MD 05/11/2019 12:50 PM | + + + +---------+ + + | Performing | Address | City/State/Zipcode | Phone Number | | Organization | | | | + +---------+ + + | [facility] | | | | | VOICE RECOGNITION 2 | | | | + +---------+ + + CULTURE, URINE [facility] (05/11/2019 12:35 PM PST) + + + + + + | Component | Value | Ref Range | Performed | Pathologist | | | | | At | Signature | + + + + + + | URINE | No growth (<1000 cfu/mL) | | [facility] | | | CULTURE | after 24 hours | | LABORATORY | | | [facility] | | | SERVICES, | | | [...] [facility] | [address] | [place] [address] | | | MENG, LUZMARIA | [address] | | | + + + + + URINE, MICROSCOPIC EXAM (05/11/2019 12:35 PM PST) + +-------+ + + + | Component | Value | Ref Range | Performed | Pathologist | | | | | At | Signature | + +-------+ + + + | RED CELLS | 2 | 0 - 3 /hpf | [facility] | | | | | | LABORATORY | | | | | | SERVICES, | | | | | | CORE | | + +-------+ + + + | WHITE CELLS | 1 | 0 - 5 /hpf | [facility] [...] +-------+ + + + | MUCOUS | None [...] +-------+ + + + | HYALINE | 0 [...] [facility] | [address] | [place] [address] | | | LUZMARIA FAN | [address] | | | + + + + + UA, [place]NY[place] ONLY (05/11/2019 12:35 PM PST) + + + + + + | Component | Value | Ref Range | Performed | Pathologist | | | | | At | Signature | + + + + + + | COLOR(UR) | Yellow | | [facility] | | | | [...] + + + + | KETONES | Negative | Negative mg/dL | [facility] | | [...] + + + + | SPECIFIC | 1.017Comment: Specific | 1.005 - 1.030 | [facility] | | | GRAVITY | [place] performed by | | LABORATORY | | [...] [facility] | [address] | [place] [address] | | | SERVICES, CORE | [address] | | | + + + + + PRODUCT - PLATELET PHERESIS LEUKOREDUCED (05/11/2019 12:11 PM PST) + + + + + [...] + + + + | PRODUCT | [id number] | | [facility] | | | UNIT [...] + + + + | EXPIRATION | [id number] | | [facility] | | | DATE [...] + + + + | BLOOD | [id number] | | [facility] | | | PRODUCT [...] [facility] | [address] | [place] [address] | | | SERVICES, | [address] | | | | TRANSFUSION MEDICINE | | | | + + + + + PRODUCT - PLATELET PHERESIS LEUKOREDUCED (05/11/2019 12:11 PM PST) + + + + + [...] + + + + | PRODUCT | [id number] | | [facility] | | | UNIT [...] + + + + | EXPIRATION | [id number] | | [facility] | | | DATE [...] + + + + | BLOOD | [id number] | | [facility] | | | PRODUCT [...] | + + + + + | [facility] | [address] | [place] [address] | | | SERVICES, | [address] | | | | TRANSFUSION MEDICINE | | | | + + + + + CULTURE, BLOOD BACTI & YEAST [facility] (05/11/2019 11:40 AM PST) + + + + + [...] [facility] | [address] | [place] [address] | | | SERVICES, CORE | [address] | | | + + + + + CULTURE, BLOOD BACTI & YEAST [facility] (05/11/2019 11:35 AM PST) + + + + + [...] Specimen | + + | Blood - White port | | lumen | + + + + + + + | Performing | Address | City/State/Zipcode | Phone Number | | Organization | | | | + + + + + | [facility] | [address] [facility] [facility] | [place] [address] | | | SERVICES, CORE | [address] | | | + + + + + TACROLIMUS, WHOLE BLOOD (05/11/2019 9:22 AM PST) + + + + + + | Component | Value | Ref Range | Performed | Pathologist | | | | | At | Signature | + + + + + + | TACROLIMUS | 4.0 (L)Comment: DRAW | 5.0 - 15.0 | [facility] | | | ([address]) | tacro level prior to | ng/mL | LABORATORY | | | | giving 0900 dose | | SERVICES, | | | | | | SPECIAL IMM | | | | | | + COAG | | + + + + + + + + | Specimen | + + | Blood - Blood | | (substance) | + + + + + | Narrative | Performed At | + + + | Test performed by immunoassay using [employer] i2000. . | [facility] | | [...] | + + + + + | [facility] | [address] [facility] | [place] [address] | | | SERVICES, SPECIAL | [address] | | | | IMM + COAG | | | | + + + + + PRODUCT - PLATELET PHERESIS LEUKOREDUCED (05/11/2019 1:37 AM PST) + + + + + + | Component | Value | Ref Range | Performed | Pathologist | | | | | At | Signature | + + + + + + | PRODUCT | PLATELETS PHERESIS, | | [facility] | | | DESCRIPTION | LEUKOCYTES | | LABORATORY | | | | REDUCED,IRRADIATED | | SERVICES, | | | | | | TRANSFUSION | | | | | | MEDICINE | | + + + + + + | PRODUCT | [id number] | | [facility] | | | UNIT [...] + + + | UNIT RH | NEG | | [facility] | | | | [...] + + + + | EXPIRATION | [id number] | | [facility] | | | DATE | | | LABORATORY | | | | | | SERVICES, | | | | | | TRANSFUSION | | | | | | MEDICINE | | + + + + + + | BLOOD TYPE | 2800 | | [facility] | | | BARCODE | | | LABORATORY | | | | | | SERVICES, | | | | | | TRANSFUSION | | | | | | MEDICINE | | + + + + + + | BLOOD | [id number] | | [facility] | | | PRODUCT [...] [facility] | [address] | [place] [address] | | | SERVICES, | [address] | | | | TRANSFUSION MEDICINE | | | | + + + + + RBC MORPHOLOGY (05/11/2019 1:04 AM PST) + + + + + [...] [facility] | [address] | [place] [address] | | | SERVICES, CORE | [address] | | | + + + + + CBC AND AUTO DIFF (05/11/2019 1:04 AM PST) + + + + + + | Component | Value | Ref Range | Performed | Pathologist | | | | | At | Signature | + + + + + + | WHITE CELL | 0.56 (L) | 3.50 - 10.80 | [facility] | | | COUNT | | K/cu mm | LABORATORY | | | | | | SERVICES, | | | | | | CORE | | + + + + + + | RED CELL | 3.02 (L) | 4.00 - 5.20 | [facility] [...] + + + + | HEMATOCRIT | 24.8 (L) | 36.0 - 46.0 % | [...] + + + + | MCHC | 33.1 | 32.0 - 36.0 | [facility] | | | | | g/dL | LABORATORY | | | | | | SERVICES, | | | | | | CORE | | + + + + + + | RDW SD | 40.4 | 35.1 - 46.3 fL | [facility] | | | | | | LABORATORY | | | | | | SERVICES, | | | | | | CORE | | + + + + + + | PLATELET | 4 (LL) | 150 - 400 K/cu | [...] + + + + | NEUTROPHIL | 58.9 | 50.0 - 70.0 % | [facility] | | | % | | | LABORATORY | | | | | | SERVICES, | | | | | | CORE | | + + + + + + | LYMPHOCYTE | 8.9 (L) | 18.0 - 42.0 % | [facility] | | | % | | | LABORATORY | | | | | | SERVICES, | | | | | | CORE | | + + + + + + | MONOCYTE % | 25.0 (H) | 3.5 - 9.0 % | [facility] | | | | | | LABORATORY | | | | | | SERVICES, | | | | | | CORE | | + + + + + + | EOS % | 3.6 (H) | 1.0 - 3.0 % | [facility] | | | | | | LABORATORY | | | | | | SERVICES, | | | | | | CORE | | + + + + + + | BASO % | 1.8 | 0.0 - 2.0 % | [facility] [...] + + + + | NEUTROPHIL | 0.33 (L) | 1.80 - 7.70 | [facility] | | | # | | K/cu mm | LABORATORY | | | | | | SERVICES, | | | | | | CORE | | + + + + + + | LYMPHOCYTE | 0.05 (L) | 1.00 - 4.80 | [facility] | | | # | | K/cu mm | LABORATORY | | | | | | SERVICES, | | | | | | CORE | | + + + + + + | MONOCYTE # | 0.14 | 0.10 - 0.90 | [facility] | [...] | + + + + + | [facility] | [address] [facility] | [place] [address] | | | LUZMARIA FAN | [address] | | | + + + + + MAGNESIUM, PLASMA (05/11/2019 1:03 AM PST) + +-------+ + + + | Component | Value | Ref Range | Performed | Pathologist | | | | | At | Signature | + +-------+ + + + | MAGNESIUM,P | 2.0 | 1.6 - 2.6 mg/dL | [facility] [...] + + | [facility] | [address] | [place] [address] | | | SERVICES, CORE | [address] | | | + + + + + PHOSPHORUS, PLASMA (05/11/2019 1:03 AM PST) + +-------+ + + + [...] | + + + + + | [facility] | [address] [facility] | [place] [address] | | | SERVICES, CORE | [address] | | | + + + + + COMPLETE METABOLIC SET (NA,K,CL,CO2,BUN,CREAT,GLUC,CA,AST,ALT,BILI TOTAL,ALK PHOS,ALB,PROT TOTAL) (05/11/2019 1:03 AM PST) + +---------+ + + + | Component | Value | Ref Range | Performed | Pathologist | | | | | At | Signature | + +---------+ + + + | GLUCOSE, | 99 | 70 - 99 mg/dL | [facility] [...] | | | LABORATORY | | | G[facility] | | | SERVICES, | | | | | | CORE | | + +---------+ + + + | EGFR NON | >60 | >60 mL/min | [facility] | | | -DORY | | | LABORATORY | | | [...] +---------+ + + + | AST(SGOT) | 4 | <=41 U/L | [facility] | | [...] | + + + + + | [facility] | [address] | [place] [address] | | | SERVICES, CORE | [address] | | | + + + + + RBC MORPHOLOGY (05/10/2019 12:30 AM PST) + + + + + [...] [facility] | [address] | [place] [address] | | | SERVICES, CORE | [address] | | | + + + + + CBC AND AUTO DIFF (05/10/2019 12:30 AM PST) + + + + + + | Component | Value | Ref Range | Performed | Pathologist | | | | | At | Signature | + + + + + + | WHITE CELL | 0.61 (L) | 3.50 - 10.80 | [facility] | | | COUNT | | K/cu mm | LABORATORY | | | | | | SERVICES, | | | | | | CORE | | + + + + + + | RED CELL | 3.08 (L) | 4.00 - 5.20 | [facility] [...] + + + + | HEMATOCRIT | 25.5 (L) | 36.0 - 46.0 % | [...] + + + + | MCHC | 34.1 | 32.0 - 36.0 | [facility] | | | | | g/dL | LABORATORY | | | | | | SERVICES, | | | | | | CORE | | + + + + + + | RDW SD | 40.6 | 35.1 - 46.3 fL | [facility] | | | | | | LABORATORY | | | | | | SERVICES, | | | | | | CORE | | + + + + + + | PLATELET | 3 (LL) | 150 - 400 K/cu | [...] + + + + | NEUTROPHIL | 57.4 | 50.0 - 70.0 % | [facility] | | | % | | | LABORATORY | | | | | | SERVICES, | | | | | | CORE | | + + + + + + | LYMPHOCYTE | 8.2 (L) | 18.0 - 42.0 % | [facility] | | | % | | | LABORATORY | | | | | | SERVICES, | | | | | | CORE | | + + + + + + | MONOCYTE % | 26.2 (H) | 3.5 - 9.0 % | [facility] | | | | | | LABORATORY | | | | | | SERVICES, | | | | | | CORE | | + + + + + + | EOS % | 3.3 (H) | 1.0 - 3.0 % | [facility] | | | | | | LABORATORY | | | | | | SERVICES, | | | | | | CORE | | + + + + + + | BASO % | 1.6 | 0.0 - 2.0 % | [facility] | | | | | | LABORATORY | | | | | | SERVICES, | | | | | | CORE | | + + + + + + | IG% | 3.3 (H) | 0.0 - 1.0 % | [facility] | | | | | | LABORATORY | | | | | | SERVICES, | | | | | | CORE | | + + + + + + | NEUTROPHIL | 0.35 (L) | 1.80 - 7.70 | [facility] | | | # | | K/cu mm | LABORATORY | | | | | | SERVICES, | | | | | | CORE | | + + + + + + | LYMPHOCYTE | 0.05 (L) | 1.00 - 4.80 | [facility] | | | # | | K/cu mm | LABORATORY | | | | | | SERVICES, | | | | | | CORE | | + + + + + + | MONOCYTE # | 0.16 | 0.10 - 0.90 | [facility] | [...] | + + + + + | [facility] | [address] | [place] [address] | | | SERVICES, CORE | [address] | | | + + + + + MAGNESIUM, PLASMA (05/10/2019 12:30 AM PST) + +---------+ + + + [...] | + + + + + | [facility] | [address] | [place] [address] | | | SERVICES, CORE | [address] | | | + + + + + PHOSPHORUS, PLASMA (05/10/2019 12:30 AM PST) + +-------+ + + + [...] [facility] | [address] | [place] [address] | | | SERVICES, CORE | [address] | | | + + + + + COMPLETE METABOLIC SET (NA,K,CL,CO2,BUN,CREAT,GLUC,CA,AST,ALT,BILI TOTAL,ALK PHOS,ALB,PROT TOTAL) (05/10/2019 12:30 AM PST) + + + + + + | Component | Value | Ref Range | Performed | Pathologist | | | | | At | Signature | + + + + + + | GLUCOSE, | 117 (H) | 70 - 99 mg/dL | [...] + + + + | CREATININE | 0.54 (L) | 0.60 - 1.10 | [facility] | | | PLASMA | | mg/dL | LABORATORY | | | (LAB) | | | SERVICES, | | | | | | CORE | | + + + + + + | EGFR | >60 | >60 mL/min | [facility] | | | - | | | LABORATORY | | | GABONESE | | | SERVICES, | | | | | | CORE | | + + + + + + | EGFR NON | >60 | >60 mL/min | [facility] | | | -DORY | | | LABORATORY | | | [...] + + + + | POTASSIUM, | 4.4 | 3.4 - 5.0 | [facility] | | | PLASMA | | mmol/L | LABORATORY | | | (LAB) | | | SERVICES, | | | | | | CORE | | + + + + + + | CHLORIDE, | 108 | 97 - 108 mmol/L | [facility] [...] + + + + | CALCIUM, | 8.4 [...] + + + + | BILIRUBIN | 0.9 | 0.3 - 1.2 mg/dL | [facility] | | | TOTAL | | | LABORATORY | | | | | | SERVICES, | | | | | | CORE | | + + + + + + | TOTAL | 5.8 (L) | 6.4 - 8.2 g/dL | [facility] | | | PROTEIN, | | | LABORATORY | | | PLASMA | | | SERVICES, | | | (LAB) | | | CORE | | + + + + + + | ALBUMIN, | 2.6 (L) | 3.5 - 4.7 g/dL | [...] + + + + | AST(SGOT) | 5 | <=41 U/L | [facility] | | [...] | + + + + + | [facility] | [address] | [place] [address] | | | MENG, LUZMARIA | [address] | | | + + + + + VRE (PENNIE) BY PCR (05/09/2019 7:57 PM PST) + + + + + [...] | + + + + + | [facility] | [address] | [place] [address] | | | SERVICES, CORE | [address] | | | + + + + + PRODUCT - PLATELET PHERESIS LEUKOREDUCED (05/09/2019 1:50 AM PST) + + + + [...] + + + + | PRODUCT | [id number] | | [facility] | | | UNIT [...] + + + + | EXPIRATION | [id number] | | [facility] | | | DATE [...] + + + + | BLOOD | [id number] | | [facility] | | | PRODUCT [...] | + + + + + | [facility] | [address] | [place] [address] | | | SERVICES, | [address] | | | | TRANSFUSION MEDICINE | | | | + + + + + PRODUCT - PLATELET PHERESIS LEUKOREDUCED (05/09/2019 1:50 AM PST) + + + + [...] + + + + | PRODUCT | [id number] | | [facility] | | | UNIT [...] + + + + | EXPIRATION | [id number] | | [facility] | | | DATE [...] + + + + | BLOOD | [id number] | | [facility] | | | PRODUCT [...] | + + + + + | [facility] | [address] | [place] [address] | | | SERVICES, | [address] | | | | TRANSFUSION MEDICINE | | | | + + + + + MANUAL DIFFERENTIAL (05/09/2019 12:47 AM PST) + + + + + + | Component | Value | Ref Range | Performed | Pathologist | | | | | At | Signature | + + + + + + | NEUTROPHIL | 62.1 | 50.0 - 70.0 % | [facility] | | | % | | | LABORATORY | | | | | | SERVICES, | | | | | | CORE | | + + + + + + | LYMPHOCYTE | 7.6 (L) | 18.0 - 42.0 % | [facility] | | | % | | | LABORATORY | | | | | | SERVICES, | | | | | | CORE | | + + + + + + | MONOCYTE % | 15.2 (H) | 3.5 - 9.0 % | [facility] | | | | | | LABORATORY | | | | | | SERVICES, | | | | | | CORE | | + + + + + + | EOSINOPHIL | 1.5 | 1.0 - 3.0 % | [facility] [...] + + + + | IG% | 13.6 (H) | 0.0 - 1.0 % | [facility] | | | | | | LABORATORY | | | | | | SERVICES, | | | | | | CORE | | + + + + + + | NEUTROPHIL | 0.31 (L) | 1.80 - 7.70 | [facility] | | | # | | K/cu mm | LABORATORY | | | | | | SERVICES, | | | | | | CORE | | + + + + + + | LYMPHOCYTE | 0.04 (L) | 1.00 - 4.80 | [facility] | | | # | | K/cu mm | LABORATORY | | | | | | SERVICES, | | | | | | CORE | | + + + + + + | MONOCYTE # | 0.08 (L) | 0.10 - 0.90 | [facility] | | | | | K/cu mm | LABORATORY | | | | | | SERVICES, | | | | | | CORE | | + + + + + + | EOSINOPHIL | 0.01 | 0.00 - 0.50 | [...] [facility] | [address] | [place] [address] | | | SERVICES, CORE | [address] | | | + + + + + CBC AND AUTO DIFF (05/09/2019 12:47 AM PST) + + + + + + | Component | Value | Ref Range | Performed | Pathologist | | | | | At | Signature | + + + + + + | WHITE CELL | 0.50 (L) | 3.50 - 10.80 | [facility] | | | COUNT | | K/cu mm | LABORATORY | | | | | | SERVICES, | | | | | | CORE | | + + + + + + | RED CELL | 3.07 (L) | 4.00 - 5.20 | [facility] [...] + + + + | HEMATOCRIT | 25.2 (L) | 36.0 - 46.0 % | [...] + + + + | MCHC | 34.1 | 32.0 - 36.0 | [facility] | | | | | g/dL | LABORATORY | | | | | | SERVICES, | | | | | | CORE | | + + + + + + | RDW SD | 40.7 | 35.1 - 46.3 fL | [facility] | | | | | | LABORATORY | | | | | | SERVICES, | | | | | | CORE | | + + + + + + | PLATELET | 6 (LL) | 150 - 400 K/cu | [...] [facility] | [address] | [place] [address] | | | LUZMARIA FAN | [address] | | | + + + + + MAGNESIUM, PLASMA (05/09/2019 12:47 AM PST) + +-------+ + + + [...] | + + + + + | [facility] | [address] | [place] [address] | | | SERVICES, CORE | [address] | | | + + + + + ASPERGILLUS GALACTOMANNAN ANTIGEN, SERUM (05/09/2019 12:47 AM PST) + + + + + [...] + + + | ASP GAL | 0.41 | <=0.49 Index | [facility] | | [...] INTERPRETATION: Aspergillus galactomannan Antigen by EIA | [facility] | | | LABORAT[facility] | | This [...] [facility] | [address] | [place] [address] | | | SERVICES, SPECIAL | [address] | | | | IMM + COAG | | | | + + + + + INR (05/09/2019 12:47 AM PST) + + + + + + | Component | Value | Ref Range | Performed | Pathologist | | | | | At | Signature | + + + + + + | INR | 1.29 (H) | 0.90 - 1.20 INR | [...] [facility] | [address] | [place] [address] | | | SERVICES, CORE | [address] | | | + + + + + LDH TOTAL, PLASMA (05/09/2019 12:47 AM PST) + +---------+ + + + | Component | Value | Ref Range | Performed | Pathologist | | | | | At | Signature | + +---------+ + + + | LD TOTAL, | 212 | <=250 U/L | [facility] | | [...] [facility] | [address] | [place] [address] | | | SERVICES, CORE | [address] | | | + + + + + PHOSPHORUS, PLASMA (05/09/2019 12:47 AM PST) + +-------+ + + + | Component | Value | Ref Range | Performed | Pathologist | | | | | At | Signature | + +-------+ + + + | PHOSPHORUS, | 2.6 | 2.4 - 4.7 mg/dL | [facility] [...] [facility] | [address] | [place] [address] | | | SERVICES, CORE | [address] | | | + + + + + COMPLETE METABOLIC SET (NA,K,CL,CO2,BUN,CREAT,GLUC,CA,AST,ALT,BILI TOTAL,ALK PHOS,ALB,PROT TOTAL) (05/09/2019 12:47 AM PST) + +---------+ + + + | Component | Value | Ref Range | Performed | Pathologist | | | | | At | Signature | + +---------+ + + + | GLUCOSE, | 132 (H) | 70 - 99 mg/dL | [...] +---------+ + + + | CREATININE | 0.63 | 0.60 - 1.10 | [facility] | | | PLASMA | | mg/dL | LABORATORY | | | (LAB) | | | SERVICES, | | | | | | CORE | | + +---------+ + + + | EGFR | >60 | >60 mL/min | [facility] | | | - | | | LABORATORY | | | GABONESE | | | SERVICES, | | | | | | CORE | | + +---------+ + + + | EGFR NON | >60 | >60 mL/min | [facility] | | | -DORY | | | LABORATORY | | | [...] +---------+ + + + | CALCIUM, | 7.7 (L) | 8.6 - 10.2 | [facility] [...] +---------+ + + + | ALBUMIN, | 2.7 (L) | 3.5 - 4.7 g/dL | [...] [facility] | [address] | [place] [address] | | | SERVICES, CORE | [address] | | | + + + + + COMPLETE METABOLIC SET (NA,K,CL,CO2,BUN,CREAT,GLUC,CA,AST,ALT,BILI TOTAL,ALK PHOS,ALB,PROT TOTAL) (05/08/2019 2:59 PM PST) + +---------+ + + + [...] +---------+ + + + | CREATININE | 0.74 | 0.60 - 1.10 | [facility] | | | PLASMA | | mg/dL | LABORATORY | | | (LAB) | | | SERVICES, | | | | | | CORE | | + +---------+ + + + | EGFR | >60 | >60 mL/min | [facility] | | | - | | | LABORATORY | | | GABONESE | | | SERVICES, | | | | | | CORE | | + +---------+ + + + | EGFR NON | >60 | >60 mL/min | [facility] | | | -DORY | | | LABORATORY | | | [...] + + + | TOTAL CO2, | 28 | 21 - 32 mmol/L | [facility] | | | PLASMA | | | LABORATORY | | | (LAB) | | | SERVICES, | | | | | | CORE | | + +---------+ + + + | CALCIUM, | 7.8 (L) | 8.6 - 10.2 | [facility] | | | PLASMA | | mg/dL | LABORATORY | | | (LAB) | | | SERVICES, | | | | | | CORE | | + +---------+ + + + | CALCIUM(ALB | 8.6 | 8.6 - 10.2 | [facility] | | | CORRECTED) | | mg/dL | LABORATORY | | | | | | SERVICES, | | | | | | CORE | | + +---------+ + + + | BILIRUBIN | 1.0 | 0.3 - 1.2 mg/dL | [facility] [...] + + + | ALT (SGPT) | 13 | <=60 U/L | [facility] | | [...] MDRD equation recommended by the National | [facility] | | Kidney Disease Education Program. Estimated [...] | + + + + + | [facility] | [address] | [place] [address] | | | SERVICES, CORE | [address] | | | + + + + + TACROLIMUS, WHOLE BLOOD (05/08/2019 8:30 AM PST) + + + + + + | Component | Value | Ref Range | Performed | Pathologist | | | | | At | Signature | + + + + + + | TACROLIMUS | 5.7Comment: DRAW tacro | 5.0 - 15.0 | [facility] | | | ([address]) | level prior to giving | ng/mL | LABORATORY | | | | 0900 dose | | SERVICES, | | | | | | SPECIAL IMM | | | | | | + COAG | | + + + + + + + + | Specimen | + + | Blood - Blood | | (substance) | + + + + + | Narrative | Performed At | + + + | Test performed by immunoassay using [employer] i2000. . | [facility] | | [...] | + + + + + | [facility] | [address] | [place] [address] | | | SERVICES, SPECIAL | [address] | | | | IMM + COAG | | | | + + + + + CBC AND AUTO DIFF (05/07/2019 11:34 PM PST) + + + + + + | Component | Value | Ref Range | Performed | Pathologist | | | | | At | Signature | + + + + + + | WHITE CELL | 0.29 (L) | 3.50 - 10.80 | [facility] [...] + + + + | HEMOGLOBIN | 8.5 (L) | 12.0 - 16.0 | [facility] [...] + + + + | MCHC | 33.9 | 32.0 - 36.0 | [facility] | | | | | g/dL | LABORATORY | | | | | | SERVICES, | | | | | | CORE | | + + + + + + | RDW SD | 40.6 | 35.1 - 46.3 fL | [facility] | | | | | | LABORATORY | | | | | | SERVICES, | | | | | | CORE | | + + + + + + | PLATELET | 13 (L) | 150 - 400 K/cu | [...] + + + + | NEUTROPHIL | Comment: WBC <300; | | [facility] | | | % | differential not | | LABORATORY | | | | performed. | | SERVICES, | | | | | | CORE | | + + + + + + | LYMPHOCYTE | Comment: WBC <300; | | [facility] | | | % | differential not | | LABORATORY | | | | performed. | | SERVICES, | | | | | | CORE | | + + + + + + | MONOCYTE % | Comment: WBC <300; | | [facility] | | | | differential not | | LABORATORY | | | | performed. | | SERVICES, | | | | | | CORE | | + + + + + + | EOS % | Comment: WBC <300; | | [facility] | | | | differential not | | LABORATORY | | | | performed. | | SERVICES, | | | | | | CORE | | + + + + + + | BASO % | Comment: WBC <300; | | [facility] | | | | differential not | | LABORATORY | | | | performed. | | SERVICES, | | | | | | CORE | | + + + + + + | IG% | Comment: WBC <300; | | [facility] | | | | differential not | | LABORATORY | | | | performed. | | SERVICES, | | | | | | CORE | | + + + + + + | NEUTROPHIL | Comment: WBC <300; | | [facility] | | | # | differential not | | LABORATORY | | | | performed. | | SERVICES, | | | | | | CORE | | + + + + + + | LYMPHOCYTE | Comment: WBC <300; | | [facility] | | | # | differential not | | LABORATORY | | | | performed. | | SERVICES, | | | | | | CORE | | + + + + + + | MONOCYTE # | Comment: WBC <300; | | [facility] | | | | differential not | | LABORATORY | | | | performed. | | SERVICES, | | | | | | CORE | | + + + + + + | EOS # | Comment: WBC <300; | | [facility] | | | | differential not | | LABORATORY | | | | performed. | | SERVICES, | | | | | | CORE | | + + + + + + | BASO # | Comment: WBC <300; | | [facility] | | | | differential not | | LABORATORY | | | | performed. | | SERVICES, | | | | | | CORE | | + + + + + + | IG# | Comment: WBC <300; | | [facility] | | | | differential not | | LABORATORY | | | | performed. | | SERVICES, | | | | [...] | + + + + + | [facility] | [address] | [place] [address] | | | SERVICES, CORE | [address] | | | + + + + + MAGNESIUM, PLASMA (05/07/2019 11:34 PM PST) + +---------+ + + + [...] [facility] | [address] | [place] [address] | | | SERVICES, CORE | [address] | | | + + + + + PHOSPHORUS, PLASMA (05/07/2019 11:34 PM PST) + +-------+ + + + [...] [facility] | [address] | [place] [address] | | | SERVICES, CORE | [address] | | | + + + + + COMPLETE METABOLIC SET (NA,K,CL,CO2,BUN,CREAT,GLUC,CA,AST,ALT,BILI TOTAL,ALK PHOS,ALB,PROT TOTAL) (05/07/2019 11:34 PM PST) + +---------+ + + + [...] +---------+ + + + | CREATININE | 0.73 | 0.60 - 1.10 | [facility] | | | PLASMA | | mg/dL | LABORATORY | | | (LAB) | | | SERVICES, | | | | | | CORE | | + +---------+ + + + | EGFR | >60 | >60 mL/min | [facility] | | | - | | | LABORATORY | | | GABONESE | | | SERVICES, | | | | | | CORE | | + +---------+ + + + | EGFR NON | >60 | >60 mL/min | [facility] | | | -DORY | | | LABORATORY | | | [...] +---------+ + + + | CHLORIDE, | 106 [...] +---------+ + + + | CALCIUM, | 7.6 (L) | 8.6 - 10.2 | [facility] [...] +---------+ + + + | ALBUMIN, | 2.6 (L) | 3.5 - 4.7 g/dL | [...] + + + | ALT (SGPT) | 13 | <=60 U/L | [facility] | | [...] MDRD equation recommended by the National | [facility] | | Kidney Disease Education Program. Estimated [...] | + + + + + | [facility] | [address] [facility] | [place] [address] | | | SERVICES, [facility] | [address] | | | + + + + + COMPLETE METABOLIC SET (NA,K,CL,CO2,BUN,CREAT,GLUC,CA,AST,ALT,BILI TOTAL,ALK PHOS,ALB,PROT TOTAL) (05/07/2019 2:30 PM PST) + +---------+ + + + [...] | | | LABORATORY | | | GABONESE | | | SERVICES, | | | | | | CORE | | + +---------+ + + + | EGFR NON | >60 | >60 mL/min | [facility] | | | -DORY | | | LABORATORY | | | [...] +---------+ + + + | TOTAL | 7.2 | 6.4 - 8.2 g/dL | [facility] [...] MDRD equation recommended by the National | [facility] | | Kidney Disease Education Program. Estimated [...] | + + + + + | [facility] | [address] | [place] [address] | | | SERVICES, CORE | [address] | | | + + + + + ANTIBODY SCREEN (05/07/2019 2:32 AM PST) + + + + + [...] [facility] | [address] | [place] [address] | | | SERVICES, | [address] | | | | TRANSFUSION MEDICINE | | | | + + + + + ABO & RH TYPE (05/07/2019 2:32 AM PST) + + + + + [...] [facility] | [address] | [place] [address] | | | SERVICES, | [address] | | | | TRANSFUSION MEDICINE | | | | + + + + + PRODUCT - PLATELET PHERESIS LEUKOREDUCED (05/07/2019 2:30 AM PST) + + + + + [...] + + + + | PRODUCT | [id number] | | [facility] | | | UNIT [...] + + + + | EXPIRATION | [id number] | | [facility] | | | DATE [...] + + + + | BLOOD | [id number] | | [facility] | | | PRODUCT [...] | + + + + + | [facility] | [address] | [place] [address] | | | SERVICES, | [address] | | | | TRANSFUSION MEDICINE | | | | + + + + + PRODUCT - RED CELLS LEUKOREDUCED (05/07/2019 2:30 AM PST) + + + + + [...] + + + + | PRODUCT | [id number] | | [facility] | | | UNIT [...] + + + + | EXPIRATION | [id number] | | [facility] | | | DATE [...] + + + + | BLOOD | [id number] | | [facility] | | | PRODUCT [...] | + + + + + | [facility] | [address] | [place] [address] | | | SERVICES, | [address] | | | | TRANSFUSION MEDICINE | | | | + + + + + CBC AND AUTO DIFF (05/07/2019 12:38 AM PST) + + + + + + | Component | Value | Ref Range | Performed | Pathologist | | | | | At | Signature | + + + + + + | WHITE CELL | 0.19 (L) | 3.50 - 10.80 | [facility] [...] + + + + | HEMATOCRIT | 21.0 (L) | 36.0 - 46.0 % | [facility] | | | | | | LABORATORY | | | | | | SERVICES, | | | | | | CORE | | + + + + + + | MCV | 82.7 | 80.0 - 100.0 fL | [facility] [...] + + + | RDW SD | 40.3 | 35.1 - 46.3 fL | [facility] | | | | | | LABORATORY | | | | | | SERVICES, | | | | | | CORE | | + + + + + + | PLATELET | 9 (LL) | 150 - 400 K/cu | [...] + + + + | NEUTROPHIL | Comment: WBC <300; | | [facility] | | | % | differential not | | LABORATORY | | | | performed. | | SERVICES, | | | | | | CORE | | + + + + + + | LYMPHOCYTE | Comment: WBC <300; | | [facility] | | | % | differential not | | LABORATORY | | | | performed. | | SERVICES, | | | | | | CORE | | + + + + + + | MONOCYTE % | Comment: WBC <300; | | [facility] | | | | differential not | | LABORATORY | | | | performed. | | SERVICES, | | | | | | CORE | | + + + + + + | EOS % | Comment: WBC <300; | | [facility] | | | | differential not | | LABORATORY | | | | performed. | | SERVICES, | | | | | | CORE | | + + + + + + | BASO % | Comment: WBC <300; | | [facility] | | | | differential not | | LABORATORY | | | | performed. | | SERVICES, | | | | | | CORE | | + + + + + + | IG% | Comment: WBC <300; | | [facility] | | | | differential not | | LABORATORY | | | | performed. | | SERVICES, | | | | | | CORE | | + + + + + + | NEUTROPHIL | Comment: WBC <300; | | [facility] | | | # | differential not | | LABORATORY | | | | performed. | | SERVICES, | | | | | | CORE | | + + + + + + | LYMPHOCYTE | Comment: WBC <300; | | [facility] | | | # | differential not | | LABORATORY | | | | performed. | | SERVICES, | | | | | | CORE | | + + + + + + | MONOCYTE # | Comment: WBC <300; | | [facility] | | | | differential not | | LABORATORY | | | | performed. | | SERVICES, | | | | | | CORE | | + + + + + + | EOS # | Comment: WBC <300; | | [facility] | | | | differential not | | LABORATORY | | | | performed. | | SERVICES, | | | | | | CORE | | + + + + + + | BASO # | Comment: WBC <300; | | [facility] | | | | differential not | | LABORATORY | | | | performed. | | SERVICES, | | | | | | CORE | | + + + + + + | IG# | Comment: WBC <300; | | [facility] | | | | differential not | | LABORATORY | | | | performed. | | SERVICES, | | | | [...] | + + + + + | [facility] | [address] | [place] [address] | | | SERVICES, CORE | [address] | | | + + + + + HUMAN HERPES VIRUS 6 PCR (PLASMA OR CSF) (05/07/2019 12:38 AM PST) + + + + + [...] - [facility] | | | | [place] [address] | | | | | | [phone]. | | | | | | [email or web address] [...] A: | | | | | | [email or web address] | | | | + + + [...] [facility] | [address] | [place], [place] | | | [facility] | | [id number] | | + + + + + CMV PCR QUANTITATION, PLASMA (05/07/2019 12:38 AM PST) + + + + + [...] 2 fold may not reflect true | [facility] | | biological changes and [...] | characteristics determined by the [facility] | | | [facility]. [...] | Act of 1988. The [facility] | | | Diagnostic Center is a fully licensed and/or accredited clinical | | | laboratory under CLIA, CAP, and the [facility]. | | + + + + + + + + | Performing | Address | City/State/Zipcode | Phone Number | | Organization | | | | + + + + + | [facility] | [address] | [place] [address] | | | DIAGNOSTIC | [address] | | | | LABORATORIES | | | | + + + + + MAGNESIUM, PLASMA (05/07/2019 12:38 AM PST) + +-------+ + + + [...] | + + + + + | [facility] | [address] | [place] [address] | | | SERVICES, CORE | [address] | | | + + + + + PHOSPHORUS, PLASMA (05/07/2019 12:38 AM PST) + +---------+ + + + | Component | Value | Ref Range | Performed | Pathologist | | | | | At | Signature | + +---------+ + + + | PHOSPHORUS, | 2.2 (L) | 2.4 - 4.7 mg/dL | [facility] [...] [facility] | [address] | [place] [address] | | | SERVICES, CORE | [address] | | | + + + + + COMPLETE METABOLIC SET (NA,K,CL,CO2,BUN,CREAT,GLUC,CA,AST,ALT,BILI TOTAL,ALK PHOS,ALB,PROT TOTAL) (05/07/2019 12:38 AM PST) + +---------+ + + + | Component | Value | Ref Range | Performed | Pathologist | | | | | At | Signature | + +---------+ + + + | GLUCOSE, | 126 (H) | 70 - 99 mg/dL | [...] +---------+ + + + | CREATININE | 0.71 | 0.60 - 1.10 | [facility] | | | PLASMA | | mg/dL | LABORATORY | | | (LAB) | | | SERVICES, | | | | | | CORE | | + +---------+ + + + | EGFR | >60 | >60 mL/min | [facility] | | | - | | | LABORATORY | | | GABONESE | | | SERVICES, | | | | | | CORE | | + +---------+ + + + | EGFR NON | >60 | >60 mL/min | [facility] | | | -DORY | | | LABORATORY | | | [...] +---------+ + + + | POTASSIUM, | 4.2 | 3.4 - 5.0 | [facility] | [...] +---------+ + + + | ALBUMIN, | 2.6 (L) | 3.5 - 4.7 g/dL | [...] + + + | ALT (SGPT) | 13 | <=60 U/L | [facility] | | [...] | + + + + + | [facility] | [address] | [place] [address] | | | SERVICES, CORE | [address] | | | + + + + + COMPLETE METABOLIC SET (NA,K,CL,CO2,BUN,CREAT,GLUC,CA,AST,ALT,BILI TOTAL,ALK PHOS,ALB,PROT TOTAL) (05/06/2019 1:46 PM PST) + +---------+ + + + | Component | Value | Ref Range | Performed | Pathologist | | | | | At | Signature | + +---------+ + + + | GLUCOSE, | 137 [...] +---------+ + + + | CREATININE | 0.73 | 0.60 - 1.10 | [facility] | | | PLASMA | | mg/dL | LABORATORY | | | (LAB) | | | SERVICES, | | | | | | CORE | | + +---------+ + + + | EGFR | >60 | >60 mL/min | [facility] | | | - | | | LABORATORY | | | GABONESE | | | SERVICES, | | | | | | CORE | | + +---------+ + + + | EGFR NON | >60 | >60 mL/min | [facility] | | | -DORY | | | LABORATORY | | | [...] +---------+ + + + | CHLORIDE, | 106 | 97 - 108 mmol/L | [facility] | | | PLASMA | | | LABORATORY | | | (LAB) | | | SERVICES, | | | | | | CORE | | + +---------+ + + + | TOTAL CO2, | 28 | 21 - 32 mmol/L | [facility] | | | PLASMA | | | LABORATORY | | | (LAB) | | | SERVICES, | | | | | | CORE | | + +---------+ + + + | CALCIUM, | 7.8 (L) | 8.6 - 10.2 | [facility] [...] +---------+ + + + | ALBUMIN, | 2.6 (L) | 3.5 - 4.7 g/dL | [facility] | | | PLASMA | | | LABORATORY | | | (LAB) | | | SERVICES, | | | | | | CORE | | + +---------+ + + + | ALK PHOS | 95 | 42 - 98 U/L | [facility] [...] [facility] | [address] | [place] [address] | | | SERVICES, CORE | [address] | | | + + + + + PRODUCT - PLATELET PHERESIS LEUKOREDUCED (05/06/2019 4:48 AM PST) + + + + + [...] + + + + | PRODUCT | [id number] | | [facility] | | | UNIT [...] + + + + | EXPIRATION | [id number] | | [facility] | | | DATE [...] + + + + | BLOOD | [id number] | | [facility] | | | PRODUCT [...] + | [facility] | [address] | [place] [address] | | | SERVICES, | [address] | | | | TRANSFUSION MEDICINE | | | | + + + + + PRODUCT - PLATELET PHERESIS LEUKOREDUCED (05/06/2019 1:05 AM PST) + + + + + [...] + + + + | PRODUCT | [id number] | | [facility] | | | UNIT [...] + + + + | EXPIRATION | [id number] | | [facility] | | | DATE [...] + + + + | BLOOD | [id number] | | [facility] | | | PRODUCT [...] | + + + + + | [facility] | [address] | [place] [address] | | | SERVICES, | [address] | | | | TRANSFUSION MEDICINE | | | | + + + + + CBC AND AUTO DIFF (05/06/2019 12:02 AM PST) + + + + + + | Component | Value | Ref Range | Performed | Pathologist | | | | | At | Signature | + + + + + + | WHITE CELL | 0.12 (L) | 3.50 - 10.80 | [facility] | | | COUNT | | K/cu mm | LABORATORY | | | | | | SERVICES, | | | | | | CORE | | + + + + + + | RED CELL | 2.67 (L) | 4.00 - 5.20 | [facility] [...] + + + + | HEMATOCRIT | 21.9 (L) | 36.0 - 46.0 % | [facility] | | | | | | LABORATORY | | | | | | SERVICES, | | | | | | CORE | | + + + + + + | MCV | 82.0 | 80.0 - 100.0 fL | [facility] [...] + + + | RDW SD | 40.2 | 35.1 - 46.3 fL | [facility] | | | | | | LABORATORY | | | | | | SERVICES, | | | | | | CORE | | + + + + + + | PLATELET | 5 (LL) | 150 - 400 K/cu | [...] + + + + | NEUTROPHIL | Comment: WBC <300; | | [facility] | | | % | differential not | | LABORATORY | | | | performed. | | SERVICES, | | | | | | CORE | | + + + + + + | LYMPHOCYTE | Comment: WBC <300; | | [facility] | | | % | differential not | | LABORATORY | | | | performed. | | SERVICES, | | | | | | CORE | | + + + + + + | MONOCYTE % | Comment: WBC <300; | | [facility] | | | | differential not | | LABORATORY | | | | performed. | | SERVICES, | | | | | | CORE | | + + + + + + | EOS % | Comment: WBC <300; | | [facility] | | | | differential not | | LABORATORY | | | | performed. | | SERVICES, | | | | | | CORE | | + + + + + + | BASO % | Comment: WBC <300; | | [facility] | | | | differential not | | LABORATORY | | | | performed. | | SERVICES, | | | | | | CORE | | + + + + + + | IG% | Comment: WBC <300; | | [facility] | | | | differential not | | LABORATORY | | | | performed. | | SERVICES, | | | | | | CORE | | + + + + + + | NEUTROPHIL | Comment: WBC <300; | | [facility] | | | # | differential not | | LABORATORY | | | | performed. | | SERVICES, | | | | | | CORE | | + + + + + + | LYMPHOCYTE | Comment: WBC <300; | | [facility] | | | # | differential not | | LABORATORY | | | | performed. | | SERVICES, | | | | | | CORE | | + + + + + + | MONOCYTE # | Comment: WBC <300; | | [facility] | | | | differential not | | LABORATORY | | | | performed. | | SERVICES, | | | | | | CORE | | + + + + + + | EOS # | Comment: WBC <300; | | [facility] | | | | differential not | | LABORATORY | | | | performed. | | SERVICES, | | | | | | CORE | | + + + + + + | BASO # | Comment: WBC <300; | | [facility] | | | | differential not | | LABORATORY | | | | performed. | | SERVICES, | | | | | | CORE | | + + + + + + | IG# | Comment: WBC <300; | | [facility] | | | | differential not | | LABORATORY | | | | performed. | | SERVICES, | | | | | | CORE | | + + + + + + + + | Specimen | + + | Blood - Blood | | (substance) | + + + + + + + | Performing | Address | City/State/Zipcode | Phone Number | | Organization | | | | + + + + + | [facility] | [address] | [place] [address] | | | SERVICES, CORE | [address] | | | + + + + + MAGNESIUM, PLASMA (05/06/2019 12:02 AM PST) + +-------+ + + + | Component | Value | Ref Range | Performed | Pathologist | | | | | At | Signature | + +-------+ + + + | MAGNESIUM,P | 2.4 | 1.6 - 2.6 mg/dL | [facility] | | | L[facility] | | | [...] [facility] | [address] | [place] [address] | | | [address] [address] | [address] | | | + + + + + PHOSPHORUS, PLASMA (05/06/2019 12:02 AM PST) + +-------+ + + + | Component | Value | Ref Range | Performed | Pathologist | | | | | At | Signature | + +-------+ + + + | PHOSPHORUS, | 2.4 | 2.4 - 4.7 mg/dL | [facility] [...] [facility] | [address] | [place] [address] | | | SERVICES, CORE | [address] | | | + + + + + COMPLETE METABOLIC SET (NA,K,CL,CO2,BUN,CREAT,GLUC,CA,AST,ALT,BILI TOTAL,ALK PHOS,ALB,PROT TOTAL) (05/06/2019 12:02 AM PST) + + + + + + | Component | Value | Ref Range | Performed | Pathologist | | | | | At | Signature | + + + + + + | GLUCOSE, | 153 (H) | 70 - 99 mg/dL | [...] | | | LABORATORY | | | GABONESE | | | SERVICES, | | | | | | CORE | | + + + + + + | EGFR NON | >60 | >60 mL/min | [facility] | | | -DORY | | | LABORATORY | | | RICAN | | | SERVICES, | | | | | | CORE | | + + + + + + | SODIUM, | 137 [...] + + + + | CALCIUM, | 7.8 (L) | 8.6 - 10.2 | [facility] [...] + + + + | BILIRUBIN | 1.0 | 0.3 - 1.2 mg/dL | [facility] | | | TOTAL | | | LABORATORY | | | | | | SERVICES, | | | | | | CORE | | + + + + + + | TOTAL | 6.5 | 6.4 - 8.2 g/dL | [facility] | | | PROTEIN, | | | LABORATORY | | | PLASMA | | | SERVICES, | | | (LAB) | | | CORE | | + + + + + + | ALBUMIN, | 2.5 (L) | 3.5 - 4.7 g/dL | [...] + + + | ALT (SGPT) | 13 | <=60 U/L | [facility] | | [...] [facility] | [address] | [place] [address] | | | SERVICES, CORE | [address] | | | + + + + + PLATELET COUNT, WHOLE BLOOD (05/05/2019 10:07 AM PST) + +--------+ + + + | Component | Value | Ref Range | Performed | Pathologist | | | | | At | Signature | + +--------+ + + + | PLATELET | 7 (LL) | 150 - 400 K/cu | [facility] | | | COUNT | | mm | LABORATORY | | | | | | SERVICES, | | | | | | CORE | | + +--------+ + + + + + | Specimen | + + | Blood - Blood | | (substance) | + + + + + + + | Performing | Address | City/State/Zipcode | Phone Number | | Organization | | | | + + + + + | [facility] | [address] [facility] [address] [facility] [facility] [facility] | [place] [address] | | | MENG, LUZMARIA | [address] | | | + + + + + TACROLIMUS, WHOLE BLOOD (05/05/2019 9:49 AM PST) + + + + + + | Component | Value | Ref Range | Performed | Pathologist | | | | | At | Signature | + + + + + + | TACROLIMUS | 10.2Comment: DRAW tacro | 5.0 - 15.0 | [facility] | | | ([address]) | level prior to giving | ng/mL | LABORATORY | | | | 0900 dose | | SERVICES, | | | | | | SPECIAL IMM | | | | | | + COAG | | + + + + + + + + | Specimen | + + | Blood - Blood | | (substance) | + + + + + | Narrative | Performed At | + + + | Test performed by immunoassay using [employer] i2000. . | [facility] | | [...] | + + + + + | [facility] | [address] | [place] [address] | | | SPECIAL MENG | [address] | | | | IMM + COAG | | | | + + + + + PRODUCT - PLATELET PHERESIS LEUKOREDUCED (05/05/2019 1:52 AM PST) + + + + + [...] + + + + | PRODUCT | [id number] | | [facility] | | | UNIT [...] + + + + | EXPIRATION | [id number] | | [facility] | | | DATE [...] + + + + | BLOOD | [id number] | | [facility] | | | PRODUCT [...] + + | [facility] | [address] | [place] [address] | | | SERVICES, | [address] | | | | TRANSFUSION MEDICINE | | | | + + + + + CBC AND AUTO DIFF (05/05/2019 12:33 AM PST) + + + + + + | Component | Value | Ref Range | Performed | Pathologist | | | | | At | Signature | + + + + + + | WHITE CELL | 0.11 (L) | 3.50 - 10.80 | [facility] | | | COUNT | | K/cu mm | LABORATORY | | | | | | SERVICES, | | | | | | CORE | | + + + + + + | RED CELL | 2.85 (L) | 4.00 - 5.20 | [facility] [...] + + + + | HEMATOCRIT | 23.6 (L) | 36.0 - 46.0 % | [...] + + + + | MCHC | 33.1 | 32.0 - 36.0 | [facility] | [...] + + + + | PLATELET | 6 (LL) | 150 - 400 K/cu | [...] + + + + | NEUTROPHIL | Comment: WBC <300; | | [facility] | | | % | differential not | | LABORATORY | | | | performed. | | SERVICES, | | | | | | CORE | | + + + + + + | LYMPHOCYTE | Comment: WBC <300; | | [facility] | | | % | differential not | | LABORATORY | | | | performed. | | SERVICES, | | | | | | CORE | | + + + + + + | MONOCYTE % | Comment: WBC <300; | | [facility] | | | | differential not | | LABORATORY | | | | performed. | | SERVICES, | | | | | | CORE | | + + + + + + | EOS % | Comment: WBC <300; | | [facility] | | | | differential not | | LABORATORY | | | | performed. | | SERVICES, | | | | | | CORE | | + + + + + + | BASO % | Comment: WBC <300; | | [facility] | | | | differential not | | LABORATORY | | | | performed. | | SERVICES, | | | | | | CORE | | + + + + + + | IG% | Comment: WBC <300; | | [facility] | | | | differential not | | LABORATORY | | | | performed. | | SERVICES, | | | | | | CORE | | + + + + + + | NEUTROPHIL | Comment: WBC <300; | | [facility] | | | # | differential not | | LABORATORY | | | | performed. | | SERVICES, | | | | | | CORE | | + + + + + + | LYMPHOCYTE | Comment: WBC <300; | | [facility] | | | # | differential not | | LABORATORY | | | | performed. | | SERVICES, | | | | | | CORE | | + + + + + + | MONOCYTE # | Comment: WBC <300; | | [facility] | | | | differential not | | LABORATORY | | | | performed. | | SERVICES, | | | | | | CORE | | + + + + + + | EOS # | Comment: WBC <300; | | [facility] | | | | differential not | | LABORATORY | | | | performed. | | SERVICES, | | | | | | CORE | | + + + + + + | BASO # | Comment: WBC <300; | | [facility] | | | | differential not | | LABORATORY | | | | performed. | | SERVICES, | | | | | | CORE | | + + + + + + | IG# | Comment: WBC <300; | | [facility] | | | | differential not | | LABORATORY | | | | performed. | | SERVICES, | | | | [...] | + + + + + | [facility] | [address] | [place] [address] | | | SERVICES, CORE | [address] | | | + + + + + MAGNESIUM, PLASMA (05/05/2019 12:33 AM PST) + +---------+ + + + [...] [facility] | [address] | [place] [address] | | | SERVICES, CORE | [address] | | | + + + + + LDH TOTAL, PLASMA (05/05/2019 12:33 AM PST) + +---------+ + + + | Component | Value | Ref Range | Performed | Pathologist | | | | | At | Signature | + +---------+ + + + | LD TOTAL, | 199 | <=250 U/L | [facility] | | [...] | + + + + + | [facility] | [address] | [place] [address] | | | MENG, LUZMARIA | [address] | | | + + + + + PHOSPHORUS, PLASMA (05/05/2019 12:33 AM PST) + +---------+ + + + | Component | Value | Ref Range | Performed | Pathologist | | | | | At | Signature | + +---------+ + + + | PHOSPHORUS, | 2.0 (L) | 2.4 - 4.7 mg/dL | [facility] [...] [facility] | [address] | [place] [address] | | | SERVICES, CORE | [address] | | | + + + + + COMPLETE METABOLIC SET (NA,K,CL,CO2,BUN,CREAT,GLUC,CA,AST,ALT,BILI TOTAL,ALK PHOS,ALB,PROT TOTAL) (05/05/2019 12:33 AM PST) + +---------+ + + + [...] | | | LABORATORY | | | GABONESE | | | SERVICES, | | | | | | CORE | | + +---------+ + + + | EGFR NON | >60 | >60 mL/min | [facility] | | | -DORY | | | LABORATORY | | | [...] +---------+ + + + | POTASSIUM, | 3.1 (L) | 3.4 - 5.0 | [facility] [...] +---------+ + + + | CALCIUM, | 7.9 (L) | 8.6 - 10.2 | [facility] [...] +---------+ + + + | ALBUMIN, | 2.6 (L) | 3.5 - 4.7 g/dL | [...] + + + | ALT (SGPT) | 11 | <=60 U/L | [facility] | | [...] [facility] | [address] | [place] [address] | | | SERVICES, CORE | [address] | | | + + + + + PLATELET COUNT, WHOLE BLOOD (05/04/2019 7:45 AM PST) + +--------+ + + + | Component | Value | Ref Range | Performed | Pathologist | | | | | At | Signature | + +--------+ + + + | PLATELET | 12 (L) | 150 - 400 K/cu | [facility] | | | COUNT | | mm | LABORATORY | | | | | | SERVICES, | | | | | | CORE | | + +--------+ + + + + + | Specimen | + + | Blood - Blood | | (substance) | + + + + + + + | Performing | Address | City/State/Zipcode | Phone Number | | Organization | | | | + + + + + | [facility] | [address] | [place] [address] | | | SERVICES, CORE | [address] | | | + + + + + PRODUCT - PLATELET PHERESIS LEUKOREDUCED (05/04/2019 2:06 AM PST) + + + + + [...] + + + + | PRODUCT | [id number] | | [facility] | | | UNIT [...] + + + + | EXPIRATION | [id number] | | [facility] | | | DATE | | | LABORATORY | | | | | | SERVICES, | | | | | | TRANSFUSION | | | | | | MEDICINE | | + + + + + + | BLOOD TYPE | | | [facility] | | | BARCODE | | | LABORATORY | | | | | | SERVICES, | | | | | | TRANSFUSION | | | | | | MEDICINE | | + + + + + + | BLOOD | [id number] | | [facility] | | | PRODUCT [...] | + + + + + | [facility] | [address] | [place] [address] | | | SERVICES, | [address] | | | | TRANSFUSION MEDICINE | | | | + + + + + CBC AND AUTO DIFF (05/04/2019 12:52 AM PST) + + + + + + | Component | Value | Ref Range | Performed | Pathologist | | | | | At | Signature | + + + + + + | WHITE CELL | <0.10 (L) | 3.50 - 10.80 | [facility] [...] + + + + | HEMATOCRIT | 21.9 (L) | 36.0 - 46.0 % | [facility] | | | | | | LABORATORY | | | | | | SERVICES, | | | | | | CORE | | + + + + + + | MCV | 83.0 | 80.0 - 100.0 fL | [facility] [...] + + + | RDW SD | 40.8 | 35.1 - 46.3 fL | [facility] | | | | | | LABORATORY | | | | | | SERVICES, | | | | | | CORE | | + + + + + + | PLATELET | 1 (LL) | 150 - 400 K/cu | [...] + + + + | NEUTROPHIL | Comment: WBC <300; | | [facility] | | | % | differential not | | LABORATORY | | | | performed. | | SERVICES, | | | | | | CORE | | + + + + + + | LYMPHOCYTE | Comment: WBC <300; | | [facility] | | | % | differential not | | LABORATORY | | | | performed. | | SERVICES, | | | | | | CORE | | + + + + + + | MONOCYTE % | Comment: WBC <300; | | [facility] | | | | differential not | | LABORATORY | | | | performed. | | SERVICES, | | | | | | CORE | | + + + + + + | EOS % | Comment: WBC <300; | | [facility] | | | | differential not | | LABORATORY | | | | performed. | | SERVICES, | | | | | | CORE | | + + + + + + | BASO % | Comment: WBC <300; | | [facility] | | | | differential not | | LABORATORY | | | | performed. | | SERVICES, | | | | | | CORE | | + + + + + + | IG% | Comment: WBC <300; | | [facility] | | | | differential not | | LABORATORY | | | | performed. | | SERVICES, | | | | | | CORE | | + + + + + + | NEUTROPHIL | Comment: WBC <300; | | [facility] | | | # | differential not | | LABORATORY | | | | performed. | | SERVICES, | | | | | | CORE | | + + + + + + | LYMPHOCYTE | Comment: WBC <300; | | [facility] | | | # | differential not | | LABORATORY | | | | performed. | | SERVICES, | | | | | | CORE | | + + + + + + | MONOCYTE # | Comment: WBC <300; | | [facility] | | | | differential not | | LABORATORY | | | | performed. | | SERVICES, | | | | | | CORE | | + + + + + + | EOS # | Comment: WBC <300; | | [facility] | | | | differential not | | LABORATORY | | | | performed. | | SERVICES, | | | | | | CORE | | + + + + + + | BASO # | Comment: WBC <300; | | [facility] | | | | differential not | | LABORATORY | | | | performed. | | SERVICES, | | | | | | CORE | | + + + + + + | IG# | Comment: WBC <300; | | [facility] | | | | differential not | | LABORATORY | | | | performed. | | SERVICES, | | | | | | CORE | | + + + + + + + + | Specimen | + + | Blood - Blood | | (substance) | + + + + + + + | Performing | Address | City/State/Zipcode | Phone Number | | Organization | | | | + + + + + | [facility] | [address] | [place] [address] | | | SERVICES, CORE | [address] | | | + + + + + MAGNESIUM, PLASMA (05/04/2019 12:52 AM PST) + +-------+ + + + [...] [facility] | [address] | [place] [address] | | | SERVICES, CORE | [address] | | | + + + + + PHOSPHORUS, PLASMA (05/04/2019 12:52 AM PST) + +-------+ + + + | Component | Value | Ref Range | Performed | Pathologist | | | | | At | Signature | + +-------+ + + + | PHOSPHORUS, | 2.6 | 2.4 - 4.7 mg/dL | [facility] [...] | + + + + + | [facility] | [address] [facility] [facility] | [place] [address] | | | SERVICES, CORE | [address] | | | + + + + + COMPLETE METABOLIC SET (NA,K,CL,CO2,BUN,CREAT,GLUC,CA,AST,ALT,BILI TOTAL,ALK PHOS,ALB,PROT TOTAL) (05/04/2019 12:52 AM PST) + +---------+ + + + [...] | | | LABORATORY | | | GABONESE | | | SERVICES, | | | | | | CORE | | + +---------+ + + + | EGFR NON | >60 | >60 mL/min | [facility] | | | -DORY | | | LABORATORY | | | [...] +---------+ + + + | CHLORIDE, | 108 | 97 - 108 mmol/L | [facility] [...] +---------+ + + + | CALCIUM, | 7.9 (L) | 8.6 - 10.2 | [facility] [...] +---------+ + + + | BILIRUBIN | 1.0 | 0.3 - 1.2 mg/dL | [facility] [...] +---------+ + + + | ALBUMIN, | 2.4 (L) | 3.5 - 4.7 g/dL | [...] + + + | ANION GAP | 5 | 4 - 11 mmol/L | [facility] [...] MDRD equation recommended by the National | [facility] | | Kidney Disease Education Program. Estimated [...] | + + + + + | [facility] | [address] | [place] [address] | | | SERVICES, CORE | [address] | | | + + + + + PLATELET REFRACTORY WORKUP (05/03/2019 4:56 PM PST) + + + + + + | Component | Value | Ref Range | Performed | Pathologist | | | | | At | Signature | + + + + + + | PLATELET | Please see scanned | | [facility] - | | | REFRACTORY | report for result. | | IMMUNOGENET | | | WORKUP | | | ICS/TRANSPL | | | [...] [facility] - | [address] | [place] [address] | | | IMMUNOGENETICS/TRANS | [address] | | | | PLANT LABORATORY | | | | + + + + + CULTURE, BLOOD BACTI & YEAST JEFF (05/03/2019 6:43 AM PST) + + + + + [...] | + + + + + | [facility] | [address] | [place] [address] | | | MENG, CORE | [address] | | | + + + + + PLATELET COUNT, WHOLE BLOOD (05/03/2019 6:43 AM PST) + +--------+ + + + | Component | Value | Ref Range | Performed | Pathologist | | | | | At | Signature | + +--------+ + + + | PLATELET | 5 (LL) | 150 - 400 K/cu | [facility] | | | COUNT | | mm | LABORATORY | | | | | | SERVICES, | | | | | | CORE | | + +--------+ + + + + + | Specimen | + + | Blood - Blood | | (substance) | + + + + + + + | Performing | Address | City/State/Zipcode | Phone Number | | Organization | | | | + + + + + | [facility] | [address] | [place] [address] | | | SERVICES, CORE | [address] | | | + + + + + PRODUCT - RED CELLS LEUKOREDUCED (05/03/2019 2:59 AM PST) + + + + + [...] + + + + | PRODUCT | [id number] | | [facility] | | | UNIT [...] + + + + | EXPIRATION | [id number] | | [facility] | | | DATE [...] + + + + | BLOOD | [id number] | | [facility] | | | PRODUCT [...] [facility] | [address] | [place] [address] | | | SERVICES, | [address] | | | | TRANSFUSION MEDICINE | | | | + + + + + PRODUCT - PLATELET PHERESIS LEUKOREDUCED (05/03/2019 2:31 AM PST) + + + + + [...] + + + + | PRODUCT | [id number] | | [facility] | | | UNIT [...] + + + | UNIT RH | NEG | | [facility] | | | | [...] + + + + | EXPIRATION | [id number] | | [facility] | | | DATE | | | LABORATORY | | | | | | SERVICES, | | | | | | TRANSFUSION | | | | | | MEDICINE | | + + + + + + | BLOOD TYPE | 2800 | | [facility] | | | BARCODE | | | LABORATORY | | | | | | SERVICES, | | | | | | TRANSFUSION | | | | | | MEDICINE | | + + + + + + | BLOOD | [id number] | | [facility] | | | PRODUCT [...] | + + + + + | [facility] | [address] | [place] [address] | | | SERVICES, | [address] | | | | TRANSFUSION MEDICINE | | | | + + + + + CBC AND AUTO DIFF (05/03/2019 1:24 AM PST) + + + + + + | Component | Value | Ref Range | Performed | Pathologist | | | | | At | Signature | + + + + + + | WHITE CELL | <0.10 (L) | 3.50 - 10.80 | [facility] [...] + + + + | HEMATOCRIT | 21.0 (L) | 36.0 - 46.0 % | [facility] | | | | | | LABORATORY | | | | | | SERVICES, | | | | | | CORE | | + + + + + + | MCV | 82.7 | 80.0 - 100.0 fL | [facility] [...] + + + | RDW SD | 40.2 | 35.1 - 46.3 fL | [facility] | | | | | | LABORATORY | | | | | | SERVICES, | | | | | | CORE | | + + + + + + | PLATELET | 4 (LL) | 150 - 400 K/cu | [...] + + + + | NEUTROPHIL | Comment: WBC <300; | | [facility] | | | % | differential not | | LABORATORY | | | | performed. | | SERVICES, | | | | | | CORE | | + + + + + + | LYMPHOCYTE | Comment: WBC <300; | | [facility] | | | % | differential not | | LABORATORY | | | | performed. | | SERVICES, | | | | | | CORE | | + + + + + + | MONOCYTE % | Comment: WBC <300; | | [facility] | | | | differential not | | LABORATORY | | | | performed. | | SERVICES, | | | | | | CORE | | + + + + + + | EOS % | Comment: WBC <300; | | [facility] | | | | differential not | | LABORATORY | | | | performed. | | SERVICES, | | | | | | CORE | | + + + + + + | BASO % | Comment: WBC <300; | | [facility] | | | | differential not | | LABORATORY | | | | performed. | | SERVICES, | | | | | | CORE | | + + + + + + | IG% | Comment: WBC <300; | | [facility] | | | | differential not | | LABORATORY | | | | performed. | | SERVICES, | | | | | | CORE | | + + + + + + | NEUTROPHIL | Comment: WBC <300; | | [facility] | | | # | differential not | | LABORATORY | | | | performed. | | SERVICES, | | | | | | CORE | | + + + + + + | LYMPHOCYTE | Comment: WBC <300; | | [facility] | | | # | differential not | | LABORATORY | | | | performed. | | SERVICES, | | | | | | CORE | | + + + + + + | MONOCYTE # | Comment: WBC <300; | | [facility] | | | | differential not | | LABORATORY | | | | performed. | | SERVICES, | | | | | | CORE | | + + + + + + | EOS # | Comment: WBC <300; | | [facility] | | | | differential not | | LABORATORY | | | | performed. | | SERVICES, | | | | | | CORE | | + + + + + + | BASO # | Comment: WBC <300; | | [facility] | | | | differential not | | LABORATORY | | | | performed. | | SERVICES, | | | | | | CORE | | + + + + + + | IG# | Comment: WBC <300; | | [facility] | | | | differential not | | LABORATORY | | | | performed. | | SERVICES, | | | | | | CORE | | + + + + + + + + | Specimen | + + | Blood - Blood | | (substance) | + + + + + + + | Performing | Address | City/State/Zipcode | Phone Number | | Organization | | | | + + + + + | [facility] | [address] | [place] [address] | | | SERVICES, CORE | [address] | | | + + + + + MAGNESIUM, PLASMA (05/03/2019 1:23 AM PST) + +---------+ + + + | Component | Value | Ref Range | Performed | Pathologist | | | | | At | Signature | + +---------+ + + + | MAGNESIUM,P | 1.5 (L) | 1.6 - 2.6 mg/dL | [facility] | | | [facility] | | | [...] [facility] | [address] | [place] [address] | | | SERVICES, CORE | [address] | | | + + + + + PHOSPHORUS, PLASMA (05/03/2019 1:23 AM PST) + +-------+ + + + [...] [facility] | [address] | [place] [address] | | | SERVICES, CORE | [address] | | | + + + + + COMPLETE METABOLIC SET (NA,K,CL,CO2,BUN,CREAT,GLUC,CA,AST,ALT,BILI TOTAL,ALK PHOS,ALB,PROT TOTAL) (05/03/2019 1:23 AM PST) + +---------+ + + + | Component | Value | Ref Range | Performed | Pathologist | | | | | At | Signature | + +---------+ + + + | GLUCOSE, | 121 (H) | 70 - 99 mg/dL | [...] | | | LABORATORY | | | GABONESE | | | SERVICES, | | | | | | CORE | | + +---------+ + + + | EGFR NON | >60 | >60 mL/min | [facility] | | | -DORY | | | LABORATORY | | | [...] +---------+ + + + | CHLORIDE, | 108 | 97 - 108 mmol/L | [facility] [...] +---------+ + + + | CALCIUM, | 7.8 (L) | 8.6 - 10.2 | [facility] [...] +---------+ + + + | ALBUMIN, | 2.4 (L) | 3.5 - 4.7 g/dL | [...] + + + | ALT (SGPT) | 13 | <=60 U/L | [facility] | | | | | | LABORATORY | | | | | | SERVICES, | | | | | | CORE | | + +---------+ + + + | ANION GAP | 5 | 4 - 11 mmol/L | [facility] [...] MDRD equation recommended by the National | [facility] | | Kidney Disease Education Program. Estimated [...] | + + + + + | [facility] | [address] | [place] [address] | | | SERVICES, CORE | [address] | | | + + + + + MIKEY TEE) BY PCR (05/02/2019 10:09 PM PST) + + + + + [...] [facility] | [address] | [place] [address] | | | SERVICES, CORE | [address] | | | + + + + + POTASSIUM, PLASMA (05/02/2019 3:50 PM PST) + +---------+ + + + [...] | + + + + + | [facility] | [address] | [place] [address] | | | SERVICES, CORE | [address] | | | + + + + + TRIPP RICHARD (05/02/2019 11:38 AM PST) + + + + + [...] + + + + | BLOOD | Small (A) | Negative | [facility] | | | | | | LABORATORY | | | | | | SERVICES, | | | | | | CORE | | + + + + + + | KETONES | Negative | Negative mg/dL | [facility] | | [...] + + + + | SPECIFIC | 1.005Comment: Specific | 1.005 - 1.030 | [facility] | | | GRAVITY | [place] performed by | | LABORATORY | | [...] | + + + + + | [facility] | [address] | [place] [address] | | | SERVICES, CORE | [address] | | | + + + + + URINE, MICROSCOPIC EXAM (05/02/2019 11:38 AM PST) + +---------+ + + + [...] + + + | WHITE CELLS | 1 | 0 - 5 /hpf | [facility] [...] +---------+ + + + | SQUAMOUS | Few [...] [facility] | [address] | [place] [address] | | | SERVICES, CORE | [address] | | | + + + + + URINE SCREEN FOR CULTURE (05/02/2019 11:38 AM PST) + + + + + + | Component | Value | Ref Range | Performed | Pathologist | | | | | At | Signature | + + + + + + | URINE | Negative | Negative | [facility] | | | SCREEN FOR | | | LABORATORY | | | CULTURE | | | SERVICES, | | | | | | CORE | | + + + + + + + + | Specimen | + + | Urine - Urine | | (substance) | + + + + + | Narrative | Performed At | + + + | Culture Screen Negative. Culture not indicated. | [facility] | | | LABORATORY | | | SERVICES, CORE | + + + + + + + + | Performing | Address | City/State/Zipcode | Phone Number | | Organization | | | | + + + + + | [facility] | [address] | [place] [address] | | | [place] | [address] | | | + + + + + PLATELET COUNT, WHOLE BLOOD (05/02/2019 10:51 AM PST) + +--------+ + + + | Component | Value | Ref Range | Performed | Pathologist | | | | | At | Signature | + +--------+ + + + | PLATELET | 7 (LL) | 150 - 400 K/cu | [facility] | | | COUNT | | mm | LABORATORY | | | | | | SERVICES, | | | | | | CORE | | + +--------+ + + + + + | Specimen | + + | Blood - Blood | | (substance) | + + + + + + + | Performing | Address | City/State/Zipcode | Phone Number | | Organization | | | | + + + + + | [facility] | [address] | [place] [address] | | | SERVICES, CORE | [address] | | | + + + + + TACROLIMUS, WHOLE BLOOD (05/02/2019 8:38 AM PST) + + + + + + | Component | Value | Ref Range | Performed | Pathologist | | | | | At | Signature | + + + + + + | TACROLIMUS | 9.3Comment: DRAW tacro | 5.0 - 15.0 | [facility] | | | ([address]) | level prior to giving | ng/mL | LABORATORY | | | | 0900 dose | | SERVICES, | | | | | | SPECIAL IMM | | | | | | + COAG | | + + + + + + + + | Specimen | + + | Blood - Blood | | (substance) | + + + + + | Narrative | Performed At | + + + | Test performed by immunoassay using [employer] i2000. . | [facility] | | [...] | + + + + + | [facility] | [address] | [place] [address] | | | SERVICES, SPECIAL | [address] | | | | IMM + COAG | | | | + + + + + TRANSTHORACIC ECHOCARDIOGRAM WITH STRAIN - CARDIO [employer]CHANICS, ADULT (05/02/2019 8:03 AM PST ) + + + + + + | Component | Value | Ref Range | Performed | Pathologist | | | | | At | Signature | + + + + + + | AOV VMN | 4.0 | | [facility] | | | (AORTIC | | | OF | | | VALVE) | | | CARDIOLOGY | | + + + + + + | BIPLANE, EF | 66 | | [facility] | | | | | | OF | | | | | | CARDIOLOGY | | + + + + + + | EJECTION | 65 to 70 | | [facility] | | | FRACTION | | | OF | | | | | | CARDIOLOGY | | + + + + + + | LA | 3.4 | | [facility] | | | DIMENSION | | | OF | | | | | | CARDIOLOGY | | + + + + + + | LVIDD | 4.9 | | [facility] | | | | | | OF | | | | | | CARDIOLOGY | | + + + + + + | MV A VMAX | 0.9 | | [facility] | | | | | | OF | | | | | | CARDIOLOGY | | + + + + + + | MV E? | 0.1 | | [facility] | | | | | | OF | | | | | | CARDIOLOGY | | + + + + + + | MV E VMAX | 1.1 | | [facility] | | | | | | OF | | | | | | CARDIOLOGY | | + + + + + + | MV E/E' | 11.0 | | [facility] | | | (MITRAL | | | OF | | | VALVE) | | | CARDIOLOGY | | + + + + + + | MITRAL | 12.2 | | [facility] | | | ANNULUS | | | OF | | | MEDIAL E/E" | | | CARDIOLOGY | | | (TISSUE | | | | | | DOPPLER) | | | | | + + + + + + | RVSP | 37 | | [facility] | | | | | | OF | | | | | | CARDIOLOGY | | + + + + + + | RV TAPSE | 2.1 | | [facility] | | | | | | OF | | | | | | CARDIOLOGY | | + + + + + + | RV TDI S? | 11.4 | | [facility] | | | | | | OF | | | | | | CARDIOLOGY | | + + + + + + | TR VMAX | 2.7 | | [facility] | | | (TRICUSPID | | | OF | | | VALVE) | | | CARDIOLOGY | | + + + + + + | EJECTION | 67.5 | % | [facility] | | | FRACTION | | | OF | | | RANGE MEAN | | | CARDIOLOGY | | | VALUE | | | | | + + + + + + + + | Specimen | + + | | + + + ----+ + | Narrative | Performed At | + ----+ + | [facility] | [facility] | | [facility] [address] | CARDIOLOGY | | [place], [place] [address] Ph: | | | Pt Name: STEPHENIE CAMARILLO | | | Study Date/Time 05/02/2019 / 8:03:16 AMMRN: [id number] | | | Most recent prior: 03/10/2019Acc #: [id number] | | | No. previous echos: 1DOB: 1965 53 years Heart | | | Rate: 83 bpmHeight: 62.0 in Blood | | | Pressure: 129/55 mm/HgWeight: 166.0 lb | | | Gender: FBSA: 1.77 m | | | Order ID: [id number] Study | | | [facility]Bonographer: Gaurang Parras [facility]ENTERReferring Provider: DIANE | | | Lisa SMITHModalities Performed: 2D, Color flow, Spectral Doppler, Strain | | | and For the precise quantification of LV volumes and ejection | | | fraction, online 3-D reconstruction was clinically indicated and | | | performed under the concurrent supervision of the interpreting | | | microsoft access developer.Study Quality: Good.Exam Indication: DyspneaHistory: 53yo | | | with MDS admitted for FluCyTBI UCB on Gam[place]. 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 Patient history has been obtained from the EHR | | | Transthoracic Echocardiographic Report | | | + | | | ---------+ Final Impressions: | | | | | | | | | | | | | | | 1. The left ventricular size is normal. | | | 2. The LV function is | | | normal. GLS is normal (see below). | | | 3. Right ventricular size, thickness and function are normal. | | | 4. No significant valvular abnormalities seen. | | | 5. Compared to the most | | | recent exam dated 03/10/2019, there are no | | | significant changes. | | | | | | | | | | | | + | | | + LV Function & Strain Data | | | Table:+ + +-------+-------+ Study Date: LVEF | | | (Biplane) GLS 3D LVEF | | | + + +-------+-------+ 05/02/2019 65.8 | | | % -20.3 % 65.0 % + + +-------+-------+ | | | 03/10/2019 63.6 % -16.8 % 64.0 % | | | + + +-------+-------+ Description of | | | Findings: Cardiac Rhythm: Normal sinus rhythm.Left Ventricle: The left | | | ventricular size is normal. Visually estimated left ventricular | | | ejection fraction is 65 - 70%. There is no left ventricular | | | hypertrophy. The ejection fraction is 65.8 % as measured by Shankar's | | | biplane method. The LV function is normal.Left Ventricular Wall | | | Motion: Left ventricular systolic thickening is normal in all | | | segments.Atria: Left atrial size is normal. Normal right atrium.Right | | | Ventricle: Right ventricular size, thickness and function are normal. | | | TAPSE measures 2.06cm. The RV TDI s' velocity is 11.4cm/sec.Aortic | | | Valve: The aortic valve is trileaflet and normal in structure and | | | function. No indication of aortic valve regurgitation.Mitral Valve: | | | The mitral valve is structurally normal. Trace mitral valve | | | regurgitation.Tricuspid Valve: The tricuspid valve is structurally | | | normal. Trace tricuspid regurgitation. The tricuspid regurgitant | | | velocity is 2.70 m/s, and with an assumed right atrial pressure of 8 | | | mmHg, the estimated right ventricular systolic pressure is upper | | | limits of normal at 37.2 mmHg.Pulmonic Valve: The pulmonic valve is | | | structurally normal. No indication of pulmonary valve | | | regurgitation.Aorta: Visualized portions of the ascending aorta and | | | aortic root appear normal.Venous: The inferior vena cava was dilated, | | | with respiratory size variation greater than 50%.Pericardium: No | | | pericardial effusion is seen.2D Measurements | | | Doppler Measurements 2D NL Values Aortic | | | MitralLVID(d) 4.91 (3.5-5.7cm) Max Jerome 1.36 | | | Peak E 1.10 cm | | | m/s m/sLVID(s) 3.55 | | | Mean grad 4.5 Peak A 0.91 cm | | | mmHg m/sIVS(d) | | | 0.81 (0.6-1.1cm) LVOT Jerome 1.25 E/A Ratio 1.20 | | | cm m/sLVPW(d) 1.04 | | | (0.6-1.1cm) LVOT VTI 0.246 TDI (E/e') 11.0 cm | | | mLA A/Ps 2D 3.40 (2.7-3.9cm) LVOT | | | Diam 2.00 MV mn gd cm | | | cmLA vol A/L 26.0 (16-34) LVOT SV 43.7 MR | | | EROindex ml/m | | | indexed ml/m | | | LA vol MOD 43.2 (40-73ml) Tricuspid PulmonicBP | | | ml TR Vmax 2.70 PV Vmax 1.0LA | | | vol MOD 24.5 (16-34) m/s | | | m/sindex ml/m | | | RA Press 8 RVOT VTI 15.0LVEDV | | | 49.39 mmHg | | | cmindex ml/m | | | RVSP 37 PV mn gdBiplane EF 65.8 % | | | mmHg | | | Aorta: Index: | | | Ao Sinus 3.60 (2.1-3.5cm) 20.4 | | | cm | | | mm/m | | | Asc Ao 3.30 | | | 18.7 (prox) | | | cm mm/m | | | Evaluation of chamber size and geometry is accomplished through the | | | incorporation of linear, volumetric, and indexed values Report | | | electronically signed by: [id number] Melissa Fajardo MD (05/02/2019, | | | 3:25:05 PM) Final | | |Biplane EF 65.8 % mmHg | | | | | | Aorta: Index: | | | Ao Sinus 3.60 (2.1-3.5cm) 20.4 | | | cm mm/m | | | Asc Ao 3.30 18.7 | | | (prox) cm mm/m | | |Evaluation of chamber size and geometry is accomplished through the incorporation of | | |linear, volumetric, and indexed values | | | | | |Report electronically signed by: [id number] Melissa Fajardo MD (05/02/2019, 3:25:05 PM) | | | | | | | | | | | | Final | | + ----+ + + + | Procedure Note | + + | Interface, Cardiology Results - 05/02/2019 3:25 PM [facility] | | [facility] Echocardiography Laboratory [address] [place] [address] | | [place], [place] [address] Pt Name: STEPHENIE MARROQUIN | | MARQUISE Study Date/Time 05/02/2019 / 8:03:16 AMMRN: [id number] Most | | recent prior: 03/10/2019Acc #: [id number] No. previous echos: 1DOB: | | 1965 53 years Heart Rate: 83 bpmHeight: 62.0 in Blood | | Pressure: 129/55 mm/HgWeight: 166.0 lb Gender: FBSA: | | 1.77 m | | Order ID: [id number] Study [facility]Bonographer: Gaurang | | Izaiah [facility]ENTERRefmercy [facility] st[facility] Provider: DIANE GRACEModalities Performed: 2D, Color flow, | | Spectral Doppler, Strain and For the precise quantification of LV volumes and ejection | | fraction, online 3-D reconstruction was clinically indicated and performed under the | | concurrent supervision of the interpreting microsoft access developer.Study Quality: Good.Exam | | Indication: DyspneaHistory: 53yo with MDS admitted for FluCyTBI UCB on [place]. HX HTN, | | PICC associated thrombosis. Patient history has been obtained from the EHR Transthoracic | | Echocardiographic | | Report+ + | | Final Impressions: | | | | 1. The left ventricular | | size is normal. 2. The LV function is normal. | | GLS is normal (see below). 3. Right ventricular size, thickness | | and function are normal. 4. No significant valvular abnormalities | | seen. 5. Compared to the most recent exam dated | | 03/10/2019, there are no significant changes. | | | | | | + + LV | | Function & Strain Data Table:+ + +-------+-------+ Study Date: | | LVEF (Biplane) GLS 3D LVEF + + +-------+-------+ 05/02/2019 | | 65.8 % -20.3 % 65.0 % + + +-------+-------+ 03/10/2019 | | 63.6 % -16.8 % 64.0 % + + +-------+-------+ Description | | of Findings: Cardiac Rhythm: Normal sinus rhythm.Left Ventricle: The left ventricular | | size is normal. Visually estimated left ventricular ejection fraction is 65 - 70%. There | | is no left ventricular hypertrophy. The ejection fraction is 65.8 % as measured by | | Shankar's biplane method. The LV function is normal.Left Ventricular Wall Motion: Left | | ventricular systolic thickening is normal in all segments.Atria: Left atrial size is | | normal. Normal right atrium.Right Ventricle: Right ventricular size, thickness and | | function are normal. TAPSE measures 2.06cm. The RV TDI s' velocity is 11.4cm/sec.Aortic | | Valve: The aortic valve is trileaflet and normal in structure and function. No | | indication of aortic valve regurgitation.Mitral Valve: The mitral valve is structurally | | normal. Trace mitral valve regurgitation.Tricuspid Valve: The tricuspid valve is | | structurally normal. Trace tricuspid regurgitation. The tricuspid regurgitant velocity | | is 2.70 m/s, and with an assumed right atrial pressure of 8 mmHg, the estimated right | | ventricular systolic pressure is upper limits of normal at 37.2 mmHg.Pulmonic Valve: The | | pulmonic valve is structurally normal. No indication of pulmonary valve | | regurgitation.Aorta: Visualized portions of the ascending aorta and aortic root appear | | normal.Venous: The inferior vena cava was dilated, with respiratory size variation | | greater than 50%.Pericardium: No pericardial effusion is seen.2D Measurements | | Doppler Measurements 2D NL Values Aortic MitralLVID(d) | | 4.91 (3.5-5.7cm) Max Jerome 1.36 Peak E 1.10 cm | | m/s m/sLVID(s) 3.55 Mean grad 4.5 Peak A 0.91 | | cm mmHg m/sIVS(d) 0.81 (0.6-1.1cm) | | LVOT Jerome 1.25 E/A Ratio 1.20 cm m/sLVPW(d) | | 1.04 (0.6-1.1cm) LVOT VTI 0.246 TDI (E/e') 11.0 cm | | mLA A/Ps 2D 3.40 (2.7-3.9cm) LVOT Diam 2.00 MV mn gd cm | | cmLA vol A/L 26.0 (16-34) LVOT SV 43.7 MR EROindex ml/m | | indexed ml/m | | LA vol MOD 43.2 (40-73ml) Tricuspid PulmonicBP ml TR | | Vmax 2.70 PV Vmax 1.0LA vol MOD 24.5 (16-34) m/s | | m/sindex ml/m | | RA Press 8 RVOT VTI 15.0LVEDV 49.39 | | mmHg cmindex ml/m | | RVSP 37 PV mn gdBiplane EF 65.8 % mmHg | | Aorta: Index: | | Ao Sinus 3.60 (2.1-3.5cm) 20.4 cm | | mm/m | | Asc Ao 3.30 18.7 | | (prox) cm mm/m | | Evaluation of chamber size and geometry is accomplished through the incorporation of | | linear, volumetric, and indexed values Report electronically signed by: [id number] | | Melissa Fajardo MD (05/02/2019, 3:25:05 PM) Final | |right atrial pressure of 8 mmHg, the estimated right ventricular systolic pressure is | | upper limits of normal at 37.2 mmHg. | |Pulmonic Valve: The pulmonic valve is structurally normal. No indication of pulmonary | | valve regurgitation. | |Aorta: Visualized portions of the ascending aorta and aortic root appear normal. | |Venous: The inferior vena cava was dilated, with respiratory size variation greater | |than 50%. | |Pericardium: No pericardial effusion is seen. | |2D Measurements Doppler Measurements | | | | 2D NL Values Aortic Mitral | |LVID(d) 4.91 (3.5-5.7cm) Max Jerome 1.36 Peak E 1.10 | | cm m/s m/s | |LVID(s) 3.55 Mean grad 4.5 Peak A 0.91 | | cm mmHg m/s | |IVS(d) 0.81 (0.6-1.1cm) LVOT Jerome 1.25 E/A Ratio 1.20 | | cm m/s | |LVPW(d) 1.04 (0.6-1.1cm) LVOT VTI 0.246 TDI (E/e') 11.0 | | cm m | |LA A/Ps 2D 3.40 (2.7-3.9cm) LVOT Diam 2.00 MV mn gd | | cm cm | |LA vol A/L 26.0 (16-34) LVOT SV 43.7 MR ERO | |index ml/m indexed ml/m | |LA vol MOD 43.2 (40-73ml) Tricuspid Pulmonic | |BP ml TR Vmax 2.70 PV Vmax 1.0 | |LA vol MOD 24.5 (16-34) m/s m/s | |index ml/m RA Press 8 RVOT VTI 15.0 | |LVEDV 49.39 mmHg cm | |index ml/m RVSP 37 PV mn gd | |Biplane EF 65.8 % mmHg | | | | Aorta: Index: | | Ao Sinus 3.60 (2.1-3.5cm) 20.4 | | cm mm/m | | Asc Ao 3.30 18.7 | | (prox) cm mm/m | |Evaluation of chamber size and geometry is accomplished through the incorporation of | |linear, volumetric, and indexed values | | | |Report electronically signed by: [id number] Melissa Fajardo MD (05/02/2019, 3:25:05 PM) | | | | | | | | Final | + + + + + + + | Performing | Address | City/State/Zipcode | Phone Number | | Organization | | | | + + + + + | [facility] | [address] | [place], [place] | | | CARDIOLOGY | [address] | [address] | | + + + + + PRODUCT - PLATELET PHERESIS LEUKOREDUCED (05/02/2019 2:07 AM PST) + + + + + [...] + + + + | PRODUCT | [id number] | | [facility] | | | UNIT [...] + + + + | EXPIRATION | [id number] | | [facility] | | | DATE [...] + + + + | BLOOD | [id number] | | [facility] | | | PRODUCT [...] | + + + + + | [facility] | [address] [facility] | [place] [address] | | | SERVICES, | [address] | | | | TRANSFUSION MEDICINE | | | | + + + + + CBC AND AUTO DIFF (05/02/2019 12:23 AM PST) + + + + + + | Component | Value | Ref Range | Performed | Pathologist | | | | | At | Signature | + + + + + + | WHITE CELL | <0.10 (L) | 3.50 - 10.80 | [facility] | | | COUNT | | K/cu mm | LABORATORY | | | | | | SERVICES, | | | | | | CORE | | + + + + + + | RED CELL | 2.75 (L) | 4.00 - 5.20 | [facility] [...] + + + + | HEMATOCRIT | 23.0 (L) | 36.0 - 46.0 % | [facility] | | | | | | LABORATORY | | | | | | SERVICES, | | | | | | CORE | | + + + + + + | MCV | 83.6 | 80.0 - 100.0 fL | [facility] | | | | | | LABORATORY | | | | | | SERVICES, | | | | | | CORE | | + + + + + + | MCHC | 33.9 | 32.0 - 36.0 | [facility] | | | | | g/dL | LABORATORY | | | | | | SERVICES, | | | | | | CORE | | + + + + + + | RDW SD | 40.0 | 35.1 - 46.3 fL | [facility] | | | | | | LABORATORY | | | | | | SERVICES, | | | | | | CORE | | + + + + + + | PLATELET | 9 (LL) | 150 - 400 K/cu | [...] + + + + | NEUTROPHIL | Comment: WBC <300; | | [facility] | | | % | differential not | | LABORATORY | | | | performed. | | SERVICES, | | | | | | CORE | | + + + + + + | LYMPHOCYTE | Comment: WBC <300; | | [facility] | | | % | differential not | | LABORATORY | | | | performed. | | SERVICES, | | | | | | CORE | | + + + + + + | MONOCYTE % | Comment: WBC <300; | | [facility] | | | | differential not | | LABORATORY | | | | performed. | | SERVICES, | | | | | | CORE | | + + + + + + | EOS % | Comment: WBC <300; | | [facility] | | | | differential not | | LABORATORY | | | | performed. | | SERVICES, | | | | | | CORE | | + + + + + + | BASO % | Comment: WBC <300; | | [facility] | | | | differential not | | LABORATORY | | | | performed. | | SERVICES, | | | | | | CORE | | + + + + + + | IG% | Comment: WBC <300; | | [facility] | | | | differential not | | LABORATORY | | | | performed. | | SERVICES, | | | | | | CORE | | + + + + + + | NEUTROPHIL | Comment: WBC <300; | | [facility] | | | # | differential not | | LABORATORY | | | | performed. | | SERVICES, | | | | | | CORE | | + + + + + + | LYMPHOCYTE | Comment: WBC <300; | | [facility] | | | # | differential not | | LABORATORY | | | | performed. | | SERVICES, | | | | | | CORE | | + + + + + + | MONOCYTE # | Comment: WBC <300; | | [facility] | | | | differential not | | LABORATORY | | | | performed. | | SERVICES, | | | | | | CORE | | + + + + + + | EOS # | Comment: WBC <300; | | [facility] | | | | differential not | | LABORATORY | | | | performed. | | SERVICES, | | | | | | CORE | | + + + + + + | BASO # | Comment: WBC <300; | | [facility] | | | | differential not | | LABORATORY | | | | performed. | | SERVICES, | | | | | | CORE | | + + + + + + | IG# | Comment: WBC <300; | | [facility] | | | | differential not | | LABORATORY | | | | performed. | | SERVICES, | | | | | | CORE | | + + + + + + + + | Specimen | + + | Blood - Blood | | (substance) | + + + + + + + | Performing | Address | City/State/Zipcode | Phone Number | | Organization | | | | + + + + + | [facility] | [address] | [place] [address] | | | SERVICES, CORE | [address] | | | + + + + + MAGNESIUM, PLASMA (05/02/2019 12:23 AM PST) + +-------+ + + + [...] [facility] | [address] | [place] [address] | | | SERVICES, CORE | [address] | | | + + + + + ASPERGILLUS GALACTOMANNAN ANTIGEN, SERUM (05/02/2019 12:23 AM PST) + + + + + [...] + + + | ASP GAL | 0.10 | <=0.49 Index | [facility] | | [...] | + + + + + | [facility] | [address] [facility] | [place] [address] | | | SERVICES, SPECIAL | [address] | | | | IMM + ELENA | | | | + + + + + INR (05/02/2019 12:23 AM PST) + +-------+ + + + | Component | Value | Ref Range | Performed | Pathologist | | | | | At | Signature | + +-------+ + + + | INR | 1.03 | 0.90 - 1.20 INR | [facility] [...] | + + + + + | [facility] | [address] [facility] [address] [facility] | [place] [address] | | | MENG, LUZMARIA | [address] | | | + + + + + LDH TOTAL, PLASMA (05/02/2019 12:23 AM PST) + +---------+ + + + | Component | Value | Ref Range | Performed | Pathologist | | | | | At | Signature | + +---------+ + + + | LD TOTAL, | 177 | <=250 U/L | [facility] | | [...] [facility] | [address] | [place] [address] | | | SERVICES, CORE | [address] | | | + + + + + PHOSPHORUS, PLASMA (05/02/2019 12:23 AM PST) + +-------+ + + + [...] | + + + + + | [facility] | [address] [facility] | [place] [address] | | | SERVICES, CORE | [address] | | | + + + + + COMPLETE METABOLIC SET (NA,K,CL,CO2,BUN,CREAT,GLUC,CA,AST,ALT,BILI TOTAL,ALK PHOS,ALB,PROT TOTAL) (05/02/2019 12:23 AM PST) + + + + + + | Component | Value | Ref Range | Performed | Pathologist | | | | | At | Signature | + + + + + + | GLUCOSE, | 102 (H) | 70 - 99 mg/dL | [...] | | | LABORATORY | | | GABONESE | | | SERVICES, | | | | | | CORE | | + + + + + + | EGFR NON | >60 | >60 mL/min | [facility] | | | -DORY | | | LABORATORY | | | [...] + + + + | CHLORIDE, | 103 [...] + + + + | BILIRUBIN | 0.9 [...] + + + + | ALBUMIN, | 2.6 (L) | 3.5 - 4.7 g/dL | [...] | + + + + + | [facility] | [address] [facility] | [place] [address] | | | SERVICES, LUZMARIA | [address] | | | + + + + + CULTURE, BLOOD BACTI & YEAST JEFF (05/01/2019 8:08 PM PST) + + + + + [...] [facility] | [address] | [place] [address] | | | SERVICES, CORE | [address] | | | + + + + + PRODUCT - PLATELET PHERESIS LEUKOREDUCED (05/01/2019 1:01 AM PDT) + + + + + [...] + + + + | PRODUCT | [id number] | | [facility] | | | UNIT [...] + + + + | EXPIRATION | [id number] | | [facility] | | | DATE [...] + + + + | BLOOD | [id number] | | [facility] | | | PRODUCT [...] | + + + + + | [facility] | [address] | [place] [address] | | | SERVICES, | [address] | | | | TRANSFUSION MEDICINE | | | | + + + + + CBC AND AUTO DIFF (05/01/2019 12:15 AM PDT) + + + + + + | Component | Value | Ref Range | Performed | Pathologist | | | | | At | Signature | + + + + + + | WHITE CELL | <0.10 (L) | 3.50 - 10.80 | [facility] | | | COUNT | | K/cu mm | LABORATORY | | | | | | SERVICES, | | | | | | CORE | | + + + + + + | RED CELL | 2.90 (L) | 4.00 - 5.20 | [facility] [...] + + + + | HEMATOCRIT | 24.0 (L) | 36.0 - 46.0 % | [...] + + + + | MCHC | 34.2 | 32.0 - 36.0 | [facility] | | | | | g/dL | LABORATORY | | | | | | SERVICES, | | | | | | CORE | | + + + + + + | RDW SD | 38.6 | 35.1 - 46.3 fL | [facility] | | | | | | LABORATORY | | | | | | SERVICES, | | | | | | CORE | | + + + + + + | PLATELET | 3 (LL) | 150 - 400 K/cu | [...] + + + + | NEUTROPHIL | Comment: WBC <300; | | [facility] | | | % | differential not | | LABORATORY | | | | performed. | | SERVICES, | | | | | | CORE | | + + + + + + | LYMPHOCYTE | Comment: WBC <300; | | [facility] | | | % | differential not | | LABORATORY | | | | performed. | | SERVICES, | | | | | | CORE | | + + + + + + | MONOCYTE % | Comment: WBC <300; | | [facility] | | | | differential not | | LABORATORY | | | | performed. | | SERVICES, | | | | | | CORE | | + + + + + + | EOS % | Comment: WBC <300; | | [facility] | | | | differential not | | LABORATORY | | | | performed. | | SERVICES, | | | | | | CORE | | + + + + + + | BASO % | Comment: WBC <300; | | [facility] | | | | differential not | | LABORATORY | | | | performed. | | SERVICES, | | | | | | CORE | | + + + + + + | IG% | Comment: WBC <300; | | [facility] | | | | differential not | | LABORATORY | | | | performed. | | SERVICES, | | | | | | CORE | | + + + + + + | NEUTROPHIL | Comment: WBC <300; | | [facility] | | | # | differential not | | LABORATORY | | | | performed. | | SERVICES, | | | | | | CORE | | + + + + + + | LYMPHOCYTE | Comment: WBC <300; | | [facility] | | | # | differential not | | LABORATORY | | | | performed. | | SERVICES, | | | | | | CORE | | + + + + + + | MONOCYTE # | Comment: WBC <300; | | [facility] | | | | differential not | | LABORATORY | | | | performed. | | SERVICES, | | | | | | CORE | | + + + + + + | EOS # | Comment: WBC <300; | | [facility] | | | | differential not | | LABORATORY | | | | performed. | | SERVICES, | | | | | | CORE | | + + + + + + | BASO # | Comment: WBC <300; | | [facility] | | | | differential not | | LABORATORY | | | | performed. | | SERVICES, | | | | | | CORE | | + + + + + + | IG# | Comment: WBC <300; | | [facility] | | | | differential not | | LABORATORY | | | | performed. | | SERVICES, | | | | | | CORE | | + + + + + + + + | Specimen | + + | Blood - Blood | | (substance) | + + + + + + + | Performing | Address | City/State/Zipcode | Phone Number | | Organization | | | | + + + + + | [facility] | [address] | [place] [address] | | | SERVICES, CORE | [address] | | | + + + + + MAGNESIUM, PLASMA (05/01/2019 12:15 AM PDT) + +---------+ + + + [...] | + + + + + | [facility] | [address] | [place] [address] | | | MENG, LUZMARIA | [address] | | | + + + + + PHOSPHORUS, PLASMA (05/01/2019 12:15 AM PDT) + +-------+ + + + | Component | Value | Ref Range | Performed | Pathologist | | | | | At | Signature | + +-------+ + + + | PHOSPHORUS, | 2.4 | 2.4 - 4.7 mg/dL | [facility] [...] [facility] | [address] | [place] [address] | | | SERVICES, CORE | [address] | | | + + + + + COMPLETE METABOLIC SET (NA,K,CL,CO2,BUN,CREAT,GLUC,CA,AST,ALT,BILI TOTAL,ALK PHOS,ALB,PROT TOTAL) (05/01/2019 12:15 AM PDT) + + + + + + | Component | Value | Ref Range | Performed | Pathologist | | | | | At | Signature | + + + + + + | GLUCOSE, | 91 [...] | | | LABORATORY | | | GABONESE | | | SERVICES, | | | | | | CORE | | + + + + + + | EGFR NON | >60 | >60 mL/min | [facility] | | | -DORY | | | LABORATORY | | | RICAN | | | SERVICES, | | | | | | CORE | | + + + + + + | SODIUM, | 139 | 136 - 145 | [facility] | | | PLASMA | | mmol/L | LABORATORY | | | (LAB) | | | SERVICES, | | | | | | CORE | | + + + + + + | POTASSIUM, | 3.1 (L) | 3.4 - 5.0 | [facility] | | | PLASMA | | mmol/L | LABORATORY | | | (LAB) | | | SERVICES, | | | | | | CORE | | + + + + + + | CHLORIDE, | 103 [...] + + + + | CALCIUM, | 7.8 (L) | 8.6 - 10.2 | [facility] [...] + + + + | BILIRUBIN | 1.0 | 0.3 - 1.2 mg/dL | [facility] | | | TOTAL | | | LABORATORY | | | | | | SERVICES, | | | | | | CORE | | + + + + + + | TOTAL | 6.0 (L) | 6.4 - 8.2 g/dL | [facility] | | | PROTEIN, | | | LABORATORY | | | PLASMA | | | SERVICES, | | | (LAB) | | | CORE | | + + + + + + | ALBUMIN, | 2.6 (L) | 3.5 - 4.7 g/dL | [...] | + + + + + | [facility] | [address] | [place] [address] | | | SERVICES, CORE | [address] | | | + + + + + PRODUCT - RED CELLS LEUKOREDUCED (04/30/2019 2:01 PM PDT) + + + + + [...] + + + + | PRODUCT | [id number] | | [facility] | | | UNIT [...] + + + + | EXPIRATION | [id number] | | [facility] | | | DATE [...] + + + + | BLOOD | [id number] | | [facility] | | | PRODUCT [...] | + + + + + | [facility] | [address] [facility] [address] [address] | [place] [address] | | | SERVICES, | [address] | | | | TRANSFUSION MEDICINE | | | | + + + + + COMPLETE METABOLIC SET (NA,K,CL,CO2,BUN,CREAT,GLUC,CA,AST,ALT,BILI TOTAL,ALK PHOS,ALB,PROT TOTAL) (04/30/2019 1:36 PM PDT) + + + + + + | Component | Value | Ref Range | Performed | Pathologist | | | | | At | Signature | + + + + + + | GLUCOSE, | 95 [...] | | | LABORATORY | | | GABONESE | | | SERVICES, | | | | | | CORE | | + + + + + + | EGFR NON | >60 | >60 mL/min | [facility] | | | -DORY | | | LABORATORY | | | [...] + + + + | CHLORIDE, | 103 [...] + + + + | CALCIUM, | 7.9 (L) | 8.6 - 10.2 | [facility] [...] + + + + | BILIRUBIN | 1.0 | 0.3 - 1.2 mg/dL | [facility] [...] + + + + | ALBUMIN, | 2.6 (L) | 3.5 - 4.7 g/dL | [...] + + + + | AST(SGOT) | 16 [...] + + + | ANION GAP | 4 | 4 - 11 mmol/L | [facility] [...] MDRD equation recommended by the National | [facility] | | Kidney Disease Education Program. Estimated [...] | + + + + + | [facility] | [address] [facility] [address] [facility] [address] | [place] [address] | | | SERVICES, CORE | [address] | | | + + + + + CULTURE, BLOOD BACTI & YEAST JEFF (04/30/2019 12:34 PM PDT) + + + + + [...] Specimen | + + | Blood - Peripheral | | (qualifier value) | + + + + + + + | Performing | Address | City/State/Zipcode | Phone Number | | Organization | | | | + + + + + | [facility] | [address] | [place] [address] | | | SERVICES, CORE | [address] | | | + + + + + PRODUCT - PLATELET PHERESIS LEUKOREDUCED (04/30/2019 1:45 AM PDT) + + + + + [...] + + + + | PRODUCT | [id number] | | [facility] | | | UNIT [...] + + + + | EXPIRATION | [id number] | | [facility] | | | DATE [...] + + + + | BLOOD | [id number] | | [facility] | | | PRODUCT [...] [facility] | [address] | [place] [address] | | | SERVICES, | [address] | | | | TRANSFUSION MEDICINE | | | | + + + + + PRODUCT - RED CELLS LEUKOREDUCED (04/30/2019 1:45 AM PDT) + + + + + [...] + + + + | PRODUCT | [id number] | | [facility] | | | UNIT [...] + + + + | EXPIRATION | [id number] | | [facility] | | | DATE [...] + + + + | BLOOD | [id number] | | [facility] | | | PRODUCT [...] [facility] | [address] | [place] [address] | | | SERVICES, | [address] | | | | TRANSFUSION MEDICINE | | | | + + + + + ANTIBODY SCREEN (04/30/2019 1:45 AM PDT) + + + + + [...] | + + + + + | [facility] | [address] | [place] [address] | | | SERVICES, | [address] | | | | TRANSFUSION MEDICINE | | | | + + + + + ABO & RH TYPE (04/30/2019 1:45 AM PDT) + + + + + [...] [facility] | [address] | [place] [address] | | | SERVICES, | [address] | | | | TRANSFUSION MEDICINE | | | | + + + + + HUMAN HERPES VIRUS 6 PCR (PLASMA OR CSF) (04/30/2019 12:50 AM PDT) + + + + + [...] - [facility] | | | | [place] [address] | | | | | | [phone] | | | | | | Zeferino [...] A: | | | | | | [employer] | | | | + + + [...] [facility] | [address] | [place], [place] | | | UNIV [facility] - [facility] | | [address] | | + + + + + CMV PCR QUANTITATION, PLASMA (04/30/2019 12:50 AM PDT) + + + + + [...] 2 fold may not reflect true | [facility] | | biological changes and [...] | | characteristics determined by the [facility] | | | [facility] Center. It has not been cleared or approved by | | | the Food and Drug Administration. FDA approval is not required for | | | clinical use of this test, and therefore validation was done as | | | required under the requirements of the Clinical Laboratory Improvement | | | Act of 1988. The [facility] | | | Diagnostic Center is a fully licensed and/or accredited clinical | | | laboratory under CLIA, [facility], and the [facility]. | | + + + + + + + + | Performing | Address | City/State/[facility] | Phone Number | | Organization | | | | + + + + + | [facility] | [address] | [place] [address] | | | DIAGNOSTIC | [address] | | | | LABORATORIES | | | | + + + + + MAGNESIUM, PLASMA (04/30/2019 12:50 AM PDT) + +-------+ + + + [...] [facility] | [address] | [place] [address] | | | SERVICES, CORE | [address] | | | + + + + + PHOSPHORUS, PLASMA (04/30/2019 12:50 AM PDT) + +-------+ + + + | Component | Value | Ref Range | Performed | Pathologist | | | | | At | Signature | + +-------+ + + + | PHOSPHORUS, | 2.6 | 2.4 - 4.7 mg/dL | [facility] [...] | + + + + + | [facility] | [address] [facility] | [place] [address] | | | SERVICES, CORE | [address] | | | + + + + + COMPLETE METABOLIC SET (NA,K,CL,CO2,BUN,CREAT,GLUC,CA,AST,ALT,BILI TOTAL,ALK PHOS,ALB,PROT TOTAL) (04/30/2019 12:50 AM PDT) + + + + + + | Component | Value | Ref Range | Performed | Pathologist | | | | | At | Signature | + + + + + + | GLUCOSE, | 92 | 70 - 99 mg/dL | [facility] [...] + + + + | CREATININE | 0.49 (L) | 0.60 - 1.10 | [facility] | | | PLASMA | | mg/dL | LABORATORY | | | (LAB) | | | SERVICES, | | | | | | CORE | | + + + + + + | EGFR | >60 | >60 mL/min | [facility] | | | - | | | LABORATORY | | | GABONESE | | | SERVICES, | | | | | | CORE | | + + + + + + | EGFR NON | >60 | >60 mL/min | [facility] | | | -DORY | | | LABORATORY | | | [...] + + + + | CALCIUM, | 7.9 (L) | 8.6 - 10.2 | [facility] [...] + + + + | TOTAL | 5.5 (L) | 6.4 - 8.2 g/dL | [facility] | | | PROTEIN, | | | LABORATORY | | | PLASMA | | | SERVICES, | | | (LAB) | | | CORE | | + + + + + + | ALBUMIN, | 2.5 (L) | 3.5 - 4.7 g/dL | [facility] | | | PLASMA | | | LABORATORY | | | (LAB) | | | SERVICES, | | | | | | CORE | | + + + + + + | ALK PHOS | 85 | 42 - 98 U/L | [facility] [...] AST CMNT | No Hemo | | [facility] | | | | | | LABORATORY [...] | + + + + + | [facility] | [address] | [place] [address] | | | SERVICES, CORE | [address] | | | + + + + + CBC AND AUTO DIFF (04/30/2019 12:48 AM PDT) + + + + + + | Component | Value | Ref Range | Performed | Pathologist | | | | | At | Signature | + + + + + + | WHITE CELL | <0.10 (L) | 3.50 - 10.80 | [facility] | | | COUNT | | K/cu mm | LABORATORY | | | | | | SERVICES, | | | | | | CORE | | + + + + + + | RED CELL | 2.19 (L) | 4.00 - 5.20 | [facility] | | | COUNT | | M/cu mm | LABORATORY | | | | | | SERVICES, | | | | | | CORE | | + + + + + + | HEMOGLOBIN | 6.2 (L) | 12.0 - 16.0 | [facility] | | | | | g/dL | LABORATORY | | | | | | SERVICES, | | | | | | CORE | | + + + + + + | HEMATOCRIT | 18.3 (L) | 36.0 - 46.0 % | [...] + + + + | MCHC | 33.9 | 32.0 - 36.0 | [facility] | | | | | g/dL | LABORATORY | | | | | | SERVICES, | | | | | | CORE | | + + + + + + | RDW SD | 38.3 | 35.1 - 46.3 fL | [facility] | | | | | | LABORATORY | | | | | | SERVICES, | | | | | | CORE | | + + + + + + | PLATELET | 5 (LL) | 150 - 400 K/cu | [...] + + + + | NEUTROPHIL | Comment: WBC <300; | | [facility] | | | % | differential not | | LABORATORY | | | | performed. | | SERVICES, | | | | | | CORE | | + + + + + + | LYMPHOCYTE | Comment: WBC <300; | | [facility] | | | % | differential not | | LABORATORY | | | | performed. | | SERVICES, | | | | | | CORE | | + + + + + + | MONOCYTE % | Comment: WBC <300; | | [facility] | | | | differential not | | LABORATORY | | | | performed. | | SERVICES, | | | | | | CORE | | + + + + + + | EOS % | Comment: WBC <300; | | [facility] | | | | differential not | | LABORATORY | | | | performed. | | SERVICES, | | | | | | CORE | | + + + + + + | BASO % | Comment: WBC <300; | | [facility] | | | | differential not | | LABORATORY | | | | performed. | | SERVICES, | | | | | | CORE | | + + + + + + | IG% | Comment: WBC <300; | | [facility] | | | | differential not | | LABORATORY | | | | performed. | | SERVICES, | | | | | | CORE | | + + + + + + | NEUTROPHIL | Comment: WBC <300; | | [facility] | | | # | differential not | | LABORATORY | | | | performed. | | SERVICES, | | | | | | CORE | | + + + + + + | LYMPHOCYTE | Comment: WBC <300; | | [facility] | | | # | differential not | | LABORATORY | | | | performed. | | SERVICES, | | | | | | CORE | | + + + + + + | MONOCYTE # | Comment: WBC <300; | | [facility] | | | | differential not | | LABORATORY | | | | performed. | | SERVICES, | | | | | | CORE | | + + + + + + | EOS # | Comment: WBC <300; | | [facility] | | | | differential not | | LABORATORY | | | | performed. | | SERVICES, | | | | | | CORE | | + + + + + + | BASO # | Comment: WBC <300; | | [facility] | | | | differential not | | LABORATORY | | | | performed. | | SERVICES, | | | | | | CORE | | + + + + + + | IG# | Comment: WBC <300; | | [facility] | | | | differential not | | LABORATORY | | | | performed. | | SERVICES, | | | | | | CORE | | + + + + + + + + | Specimen | + + | Blood - Blood | | (substance) | + + + + + + + | Performing | Address | City/State/Zipcode | Phone Number | | Organization | | | | + + + + + | [facility] | [address] | [place] [address] | | | SERVICES, CORE | [address] | | | + + + + + PRODUCT - PLATELET PHERESIS LEUKOREDUCED (04/29/2019 6:48 PM PDT) + + + + + [...] + + + + | PRODUCT | [id number] | | [facility] | | | UNIT [...] + + + + | EXPIRATION | [id number] | | [facility] | | | DATE [...] + + + + | BLOOD | [id number] | | [facility] | | | PRODUCT [...] [facility] | [address] | [place] [address] | | | SERVICES, | [address] | | | | TRANSFUSION MEDICINE | | | | + + + + + CULTURE, BLOOD BACTI & YEAST [facility] (04/29/2019 1:08 PM PDT) + + + + + [...] Specimen | + + | Blood - Entire right | | upper arm (body | | structure) | + + + + + + + | Performing | Address | City/State/Zipcode | Phone Number | | Organization | | | | + + + + + | [facility] | [address] | [place] [address] | | | SERVICES, CORE | [address] | | | + + + + + CULTURE, BLOOD BACTI & YEAST [facility] (04/29/2019 1:06 PM PDT) + + + + + [...] Specimen | + + | Blood - Entire left | | upper arm (body | | structure) | + + + + + + + | Performing | Address | City/State/Zipcode | Phone Number | | Organization | | | | + + + + + | [facility] | [address] | [place] [address] | | | SERVICES, CORE | [address] | | | + + + + + PRODUCT - PLATELET PHERESIS LEUKOREDUCED (04/29/2019 1:43 AM PDT) + + + + + [...] + + + + | PRODUCT | [id number] | | [facility] | | | UNIT [...] + + + + | EXPIRATION | [id number] | | [facility] | | | DATE [...] + + + + | BLOOD | [id number] | | [facility] | | | PRODUCT [...] [facility] | [address] | [place] [address] | | | SERVICES, | [address] | | | | TRANSFUSION MEDICINE | | | | + + + + + CBC AND AUTO DIFF (04/29/2019 12:00 AM PDT) + + + + + + | Component | Value | Ref Range | Performed | Pathologist | | | | | At | Signature | + + + + + + | WHITE CELL | <0.10 (L) | 3.50 - 10.80 | [facility] | | | COUNT | | K/cu mm | LABORATORY | | | | | | SERVICES, | | | | | | CORE | | + + + + + + | RED CELL | 2.59 (L) | 4.00 - 5.20 | [facility] [...] + + + + | HEMATOCRIT | 21.4 (L) | 36.0 - 46.0 % | [facility] | | | | | | LABORATORY | | | | | | SERVICES, | | | | | | CORE | | + + + + + + | MCV | 82.6 | 80.0 - 100.0 fL | [facility] | | | | | | LABORATORY | | | | | | SERVICES, | | | | | | CORE | | + + + + + + | MCHC | 33.6 | 32.0 - 36.0 | [facility] | | | | | g/dL | LABORATORY | | | | | | SERVICES, | | | | | | CORE | | + + + + + + | RDW SD | 38.3 | 35.1 - 46.3 fL | [facility] | | | | | | LABORATORY | | | | | | SERVICES, | | | | | | CORE | | + + + + + + | PLATELET | 8 (LL) | 150 - 400 K/cu | [...] + + + + | NEUTROPHIL | Comment: WBC <300; | | [facility] | | | % | differential not | | LABORATORY | | | | performed. | | SERVICES, | | | | | | CORE | | + + + + + + | LYMPHOCYTE | Comment: WBC <300; | | [facility] | | | % | differential not | | LABORATORY | | | | performed. | | SERVICES, | | | | | | CORE | | + + + + + + | MONOCYTE % | Comment: WBC <300; | | [facility] | | | | differential not | | LABORATORY | | | | performed. | | SERVICES, | | | | | | CORE | | + + + + + + | EOS % | Comment: WBC <300; | | [facility] | | | | differential not | | LABORATORY | | | | performed. | | SERVICES, | | | | | | CORE | | + + + + + + | BASO % | Comment: WBC <300; | | [facility] | | | | differential not | | LABORATORY | | | | performed. | | SERVICES, | | | | | | CORE | | + + + + + + | IG% | Comment: WBC <300; | | [facility] | | | | differential not | | LABORATORY | | | | performed. | | SERVICES, | | | | | | CORE | | + + + + + + | NEUTROPHIL | Comment: WBC <300; | | [facility] | | | # | differential not | | LABORATORY | | | | performed. | | SERVICES, | | | | | | CORE | | + + + + + + | LYMPHOCYTE | Comment: WBC <300; | | [facility] | | | # | differential not | | LABORATORY | | | | performed. | | SERVICES, | | | | | | CORE | | + + + + + + | MONOCYTE # | Comment: WBC <300; | | [facility] | | | | differential not | | LABORATORY | | | | performed. | | SERVICES, | | | | | | CORE | | + + + + + + | EOS # | Comment: WBC <300; | | [facility] | | | | differential not | | LABORATORY | | | | performed. | | SERVICES, | | | | | | CORE | | + + + + + + | BASO # | Comment: WBC <300; | | [facility] | | | | differential not | | LABORATORY | | | | performed. | | SERVICES, | | | | | | CORE | | + + + + + + | IG# | Comment: WBC <300; | | [facility] | | | | differential not | | LABORATORY | | | | performed. | | SERVICES, | | | | [...] [facility] | [address] | [place] [address] | | | SERVICES, CORE | [address] | | | + + + + + MAGNESIUM, PLASMA (04/29/2019 12:00 AM PDT) + +-------+ + + + | Component | Value | Ref Range | Performed | Pathologist | | | | | At | Signature | + +-------+ + + + | MAGNESIUM,P | 1.6 | 1.6 - 2.6 mg/dL | [facility] [...] [facility] | [address] | [place] [address] | | | SERVICES, CORE | [address] | | | + + + + + PHOSPHORUS, PLASMA (04/29/2019 12:00 AM PDT) + +---------+ + + + | Component | Value | Ref Range | Performed | Pathologist | | | | | At | Signature | + +---------+ + + + | PHOSPHORUS, | 2.3 (L) | 2.4 - 4.7 mg/dL | [facility] [...] | + + + + + | [facility] | [address] [facility] | [place] [address] | | | SERVICES, CORE | [address] | | | + + + + + COMPLETE METABOLIC SET (NA,K,CL,CO2,BUN,CREAT,GLUC,CA,AST,ALT,BILI TOTAL,ALK PHOS,ALB,PROT TOTAL) (04/29/2019 12:00 AM PDT) + + + + + + | Component | Value | Ref Range | Performed | Pathologist | | | | | At | Signature | + + + + + + | GLUCOSE, | 88 | 70 - 99 mg/dL | [facility] [...] | | | LABORATORY | | | GABONESE | | | SERVICES, | | | | | | CORE | | + + + + + + | EGFR NON | >60 | >60 mL/min | [facility] | | | -DORY | | | LABORATORY | | | [...] + + + | TOTAL CO2, | 28 | 21 - 32 mmol/L | [facility] [...] + + + + | TOTAL | 5.5 (L) | 6.4 - 8.2 g/dL | [facility] | | | PROTEIN, | | | LABORATORY | | | PLASMA | | | SERVICES, | | | (LAB) | | | CORE | | + + + + + + | ALBUMIN, | 2.4 (L) | 3.5 - 4.7 g/dL | [...] + + + | ANION GAP | 4 | 4 - 11 mmol/L | [facility] [...] | + + + + + | [facility] | [address] | [place] [address] | | | MENG, CORE | [address] | | | + + + + + CULTURE, URINE [facility] (04/28/2019 8:20 PM PDT) + + + + + + | Component | Value | Ref Range | Performed | Pathologist | | | | | At | Signature | + + + + + + | URINE | No growth (<1000 cfu/mL) | | [facility] | | | CULTURE | after 24 hours | | LABORATORY | | | [facility] | | | SERVICES, | | | [...] [facility] | [address] | [place] [address] | | | SERVICES, LUZMARIA | [address] | | | + + + + + URINE, MICROSCOPIC EXAM (04/28/2019 8:20 PM PDT) + +-------+ + + + [...] + + + | WHITE CELLS | 2 | 0 - 5 /hpf | [facility] [...] +-------+ + + + | HYALINE | 0 [...] | + + + + + | [facility] | [address] | [place] [address] | | | SERVICES, CORE | [address] | | | + + + + + UA, DIPSTICK ONLY (04/28/2019 8:20 PM PDT) + + + + + + | Component | Value | Ref Range | Performed | Pathologist | | | | | At | Signature | + + + + + + | COLOR(UR) | Yellow | | [facility] | | | | [...] + + + + | BLOOD | Small (A) | Negative | [facility] | | | | | | LABORATORY | | | | | | SERVICES, | | | | | | CORE | | + + + + + + | KETONES | Negative | Negative mg/dL | [facility] | | [...] + + + + | SPECIFIC | 1.010Comment: Specific | 1.005 - 1.030 | [facility] | | | GRAVITY | [place] performed by | | LABORATORY | | [...] | + + + + + | [facility] | [address] [facility] | [place] [address] | | | SERVICES, CORE | [address] | | | + + + + + X-RAY CHEST 2 VIEW (04/28/2019 7:27 PM PDT) + + | Specimen | + + | | + + + + + | Narrative | Performed At | + + + | EXAM: CHEST 2 VIEWS HISTORY: Evaluate for pneumonia | [facility] | | COMPARISON: 04/17/2019 FINDINGS: Tunneled left IJ Groshong | RADIOLOGY VOICE | | catheter is unchanged. The cardiomediastinal silhouette is stable. | RECOGNITION 2 | | Bilateral pleural effusions have slightly decreased. There is no | | | pneumothorax or pulmonary edema. Lungs are clear. IMPRESSION: | | | Clear lungs. Trace bilateral pleural effusions. I have | | | personally reviewed the images and, if necessary, edited the report. I | | | agree with the report as now presented. Final signature: | | | Mer Barbosa MD 04/29/2019 10:02 AM Preliminary: Mer Barbosa | | | Dictation initiated: Mer Barbosa MD 04/29/2019 10:01 AM | | + + + + + | Procedure Note | + + | Service Account, [employer] Res In Interface - 04/29/2019 10:03 AM PDT EXAM: CHEST 2 | | VIEWS HISTORY: Evaluate for pneumonia COMPARISON: 04/17/2019 FINDINGS: Tunneled left | | IJ Groshong catheter is unchanged. The cardiomediastinal silhouette is stable. Bilateral | | pleural effusions have slightly decreased. There is no pneumothorax or pulmonary edema. | | Lungs are clear. IMPRESSION: Clear lungs. Trace bilateral pleural effusions. I have | | personally reviewed the images and, if necessary, edited the report. I agree with the | | report as now presented. Final signature: Mer Barbosa MD 04/29/2019 10:02 AM | | Preliminary: Mer Barbosa MD Dictation initiated: Mer Barbosa MD 04/29/2019 | | 10:01 AM | | | |IMPRESSION: | | | |Clear lungs. | | | |Trace bilateral pleural effusions. | | | |I have personally reviewed the images and, if necessary, edited the report. I agree with th e report as now presented. | | | |Final signature: Mer Barbosa MD 04/29/2019 10:02 AM | |Preliminary: Mer Barbosa MD | |Dictation initiated: Mer Barbosa MD 04/29/2019 10:01 AM | + + + +---------+ + + | Performing | Address | City/State/Zipcode | Phone Number | | Organization | | | | + +---------+ + + | [facility] | | | | | VOICE RECOGNITION 2 | | | | + +---------+ + + BLOOD CULTURE WORKUP (04/28/2019 6:49 PM PDT) + + + + + + | Component | Value | Ref Range | Performed | Pathologist | | | | | At | Signature | + + + + + + | CULTURE | Streptococcus mitis | | [facility] - | | | RESULT | group (A) | | [facility] - | | | | | | [place] | | + + + + + + + + | Specimen | + + | Blood - Peripheral | | (qualifier value) | + + + + + | Narrative | Performed At | + + + | Culture Report: Streptococcus mitis group Refer to culture | [facility] - | | collected 04/28/19 at 6:40 pm for susceptibilities Growth in Aerobic | AIR[facility] - | | bottle Growth in Anaerobic bottle | [facility] | + + + + + + + + | Performing | Address | City/State/Zipcode | Phone Number | | Organization | | | | + + + + + | [facility] | [address] | [place] [address] | | | [facility] | | | | + + + + + CULTURE, BLOOD BACTI & YEAST [facility] (04/28/2019 6:49 PM PDT) + + + + + + | Component | Value | Ref Range | Performed | Pathologist | | | | | At | Signature | + + + + + + | CULTURE | Not tested by molecular | | [facility] | | | RESULT | method, see culture | | LABORATORY | | | | report. (AA) | | SERVICES, | | | | | | CORE | | + + + + + + | GRAM STAIN | Gram Positive Cocci | | [facility] | | | | (AA)Comment: This is an | | LABORATORY | | | | appended report. These | | SERVICES, | | | | results have been | | CORE | | | | appended to a previously | | | | | | preliminary verified | | | | | | report. | | | | + + + + + + + + | Specimen | + + | Blood - Peripheral | | (qualifier value) | + + + + + | Narrative | Performed At | + + + | Growth in Aerobic Bottle and Anaerobic Bottle. | [facility] | | | LABORATORY | | | [address] | + + + + + + + + | Performing | Address | City/State/Zipcode | Phone Number | | Organization | | | | + + + + + | [facility] | [address] | [place] [address] | | | SERVICES, [place] | [address] | | | + + + + + BLOOD CULTURE WORKUP (04/28/2019 6:40 PM PDT) + + + + + + | Component | Value | Ref Range | Performed | Pathologist | | | | | At | Signature | + + + + + + | CULTURE | Streptococcus mitis | | [facility] - | | | RESULT | group (A) | | AIRPORT - | | | | | | [place] | | + + + + + + + + | Specimen | + + | Blood - White port | | lumen | + + + + + | Narrative | Performed At | + + + | Culture Report: Streptococcus mitis group Growth in Aerobic | [facility] - | | bottle Growth in Anaerobic bottle | [facility] - | | | [place] | + + + + + + + + | Organism | Antibiotic | Method | Susceptibility | + + + + + | Streptococcus mitis | Clindamycin | SUSCEPTIBILITY - KB | Sensitive | | group | | | | + + + + + | Streptococcus mitis | Vancomycin | SUSCEPTIBILITY - KB | Sensitive | | group | | | | + + + + + | Streptococcus mitis | Ceftriaxone | SUSCEPTIBILITY - | Sensitive | | group | | E-TEST | | + + + + + | Streptococcus mitis | Penicillin | SUSCEPTIBILITY - | Sensitive | | group | | E-TEST | | + + + + + + + + + + | Performing | Address | City/State/Zipcode | Phone Number | | Organization | | | | + + + + + | [facility] | [address] | [place] [address] | | | [place] | | | | + + + + + CULTURE, BLOOD BACTI & YEAST [facility] (04/28/2019 6:40 PM PDT) + + + + + + | Component | Value | Ref Range | Performed | Pathologist | | | | | At | Signature | + + + + + + | CULTURE | Streptococcus species | | [facility] | | | RESULT | (AA) | | LABORATORY | | | | | | SERVICES, | | | | | | CORE | | + + + + + + | GRAM STAIN | Gram Positive Cocci | | [facility] | | | | (AA)Comment: This is an | | LABORATORY | | | | appended report. These | | SERVICES, | | | | results have been | | CORE | | | | appended to a previously | | | | | | preliminary verified | | | | | | report. | | | | + + + + + + + + | Specimen | + + | Blood - White port | | lumen | + + + + + | Narrative | Performed At | + + + | Growth in Aerobic Bottle and Anaerobic Bottle. Organism Identified | [facility] | | by Molecular ID, to be confirmed by culture. | LABORATORY | | | SERVICES, CORE | + + + + + + + + | Performing | Address | City/State/Zipcode | Phone Number | | Organization | | | | + + + + + | [facility] | [address] [facility] | [place] [address] | | | SERVICES, [place] | [address] | | | + + + + + TACROLIMUS, WHOLE BLOOD (04/28/2019 8:20 AM PDT) + + + + + + | Component | Value | Ref Range | Performed | Pathologist | | | | | At | Signature | + + + + + + | TACROLIMUS | 7.1Comment: DRAW tacro | 5.0 - 15.0 | [facility] | | | ([address]) | level prior to giving | ng/mL | LABORATORY | | | | 0900 dose | | SERVICES, | | | | | | SPECIAL IMM | | | | | | + COAG | | + + + + + + + + | Specimen | + + | Blood - Blood | | (substance) | + + + + + | Narrative | Performed At | + + + | Test performed by immunoassay using [employer] i2000. . | [facility] | | [...] | + + + + + | [facility] | [address] | [place] [address] | | | SERVICES, SPECIAL | [address] | | | | IMM + COAG | | | | + + + + + POSACONAZOLE, QUANT (04/28/2019 8:20 AM PDT) + + + + + + | Component | Value | Ref Range | Performed | Pathologist | | | | | At | Signature | + + + + + + | POSACONAZOL | 0.7 (L)Comment: | >=0.8 ug/mL | [facility] | [...] | | | | | determined by [facility] | | | | | | Laboratories. See | | | | | | Compliance Statement B: | | | | | | [employer]/CSPerformed | | | | | | by [employer],[address] | | | | | | [address] [facility] | | | | | | [id number] | | | | | | [phone].[employer]. | | | | | | comZeferino MD, | | | | | | [...] [facility] | [address] | [place], [place] | | | [facility] | | [id number] | | + + + + + PRODUCT - PLATELET PHERESIS LEUKOREDUCED (04/28/2019 2:11 AM PDT) + + + + + [...] + + + + | PRODUCT | [id number] | | [facility] | | | UNIT [...] + + + + | EXPIRATION | [id number] | | [facility] | | | DATE [...] + + + + | BLOOD | [id number] | | [facility] | | | PRODUCT [...] | + + + + + | [facility] | [address] | [place] [address] | | | SERVICES, | [address] | | | | TRANSFUSION MEDICINE | | | | + + + + + CBC AND AUTO DIFF (04/28/2019 12:00 AM PDT) + + + + + + | Component | Value | Ref Range | Performed | Pathologist | | | | | At | Signature | + + + + + + | WHITE CELL | <0.10 (L) | 3.50 - 10.80 | [facility] | | | COUNT | | K/cu mm | LABORATORY | | | | | | SERVICES, | | | | | | CORE | | + + + + + + | RED CELL | 2.68 (L) | 4.00 - 5.20 | [facility] [...] + + + + | HEMATOCRIT | 22.6 (L) | 36.0 - 46.0 % | [facility] | | | | | | LABORATORY | | | | | | SERVICES, | | | | | | CORE | | + + + + + + | MCV | 84.3 | 80.0 - 100.0 fL | [facility] | | | | | | LABORATORY | | | | | | SERVICES, | | | | | | CORE | | + + + + + + | MCHC | 32.7 | 32.0 - 36.0 | [facility] | | | | | g/dL | LABORATORY | | | | | | SERVICES, | | | | | | CORE | | + + + + + + | RDW SD | 38.7 | 35.1 - 46.3 fL | [facility] | | | | | | LABORATORY | | | | | | SERVICES, | | | | | | CORE | | + + + + + + | PLATELET | 8 (LL) | 150 - 400 K/cu | [...] + + + + | NEUTROPHIL | Comment: WBC <300; | | [facility] | | | % | differential not | | LABORATORY | | | | performed. | | SERVICES, | | | | | | CORE | | + + + + + + | LYMPHOCYTE | Comment: WBC <300; | | [facility] | | | % | differential not | | LABORATORY | | | | performed. | | SERVICES, | | | | | | CORE | | + + + + + + | MONOCYTE % | Comment: WBC <300; | | [facility] | | | | differential not | | LABORATORY | | | | performed. | | SERVICES, | | | | | | CORE | | + + + + + + | EOS % | Comment: WBC <300; | | [facility] | | | | differential not | | LABORATORY | | | | performed. | | SERVICES, | | | | | | CORE | | + + + + + + | BASO % | Comment: WBC <300; | | [facility] | | | | differential not | | LABORATORY | | | | performed. | | SERVICES, | | | | | | CORE | | + + + + + + | IG% | Comment: WBC <300; | | [facility] | | | | differential not | | LABORATORY | | | | performed. | | SERVICES, | | | | | | CORE | | + + + + + + | NEUTROPHIL | Comment: WBC <300; | | [facility] | | | # | differential not | | LABORATORY | | | | performed. | | SERVICES, | | | | | | CORE | | + + + + + + | LYMPHOCYTE | Comment: WBC <300; | | [facility] | | | # | differential not | | LABORATORY | | | | performed. | | SERVICES, | | | | | | CORE | | + + + + + + | MONOCYTE # | Comment: WBC <300; | | [facility] | | | | differential not | | LABORATORY | | | | performed. | | SERVICES, | | | | | | CORE | | + + + + + + | EOS # | Comment: WBC <300; | | [facility] | | | | differential not | | LABORATORY | | | | performed. | | SERVICES, | | | | | | CORE | | + + + + + + | BASO # | Comment: WBC <300; | | [facility] | | | | differential not | | LABORATORY | | | | performed. | | SERVICES, | | | | | | CORE | | + + + + + + | IG# | Comment: WBC <300; | | [facility] | | | | differential not | | LABORATORY | | | | performed. | | SERVICES, | | | | | | CORE | | + + + + + + + + | Specimen | + + | Blood - Blood | | (substance) | + + + + + + + | Performing | Address | City/State/Zipcode | Phone Number | | Organization | | | | + + + + + | [facility] | [address] | [place] [address] | | | SERVICES, CORE | [address] | | | + + + + + MAGNESIUM, PLASMA (04/28/2019 12:00 AM PDT) + +-------+ + + + | Component | Value | Ref Range | Performed | Pathologist | | | | | At | Signature | + +-------+ + + + | MAGNESIUM,P | 1.6 | 1.6 - 2.6 mg/dL | [facility] [...] [facility] | [address] | [place] [address] | | | SERVICES, CORE | [address] | | | + + + + + LDH TOTAL, PLASMA (04/28/2019 12:00 AM PDT) + +---------+ + + + | Component | Value | Ref Range | Performed | Pathologist | | | | | At | Signature | + +---------+ + + + | LD TOTAL, | 124 | <=250 U/L | [facility] | | [...] | + + + + + | [facility] | [address] | [place] [address] | | | SERVICES, CORE | [address] | | | + + + + + PHOSPHORUS, PLASMA (04/28/2019 12:00 AM PDT) + +---------+ + + + | Component | Value | Ref Range | Performed | Pathologist | | | | | At | Signature | + +---------+ + + + | PHOSPHORUS, | 2.1 (L) | 2.4 - 4.7 mg/dL | [facility] [...] [facility] | [address] | [place] [address] | | | SERVICES, CORE | [address] | | | + + + + + COMPLETE METABOLIC SET (NA,K,CL,CO2,BUN,CREAT,GLUC,CA,AST,ALT,BILI TOTAL,ALK PHOS,ALB,PROT TOTAL) (04/28/2019 12:00 AM PDT) + + + + + + | Component | Value | Ref Range | Performed | Pathologist | | | | | At | Signature | + + + + + + | GLUCOSE, | 102 (H) | 70 - 99 mg/dL | [facility] | | | PLASMA | | | LABORATORY | | | (LAB) | | | SERVICES, | | | | | | CORE | | + + + + + + | BUN, PLASMA | 4 (L) | 6 - 20 mg/dL | [facility] | | | (LAB) | | | LABORATORY | | | | | | SERVICES, | | | | | | CORE | | + + + + + + | CREATININE | 0.46 (L) | 0.60 - 1.10 | [facility] | | | PLASMA | | mg/dL | LABORATORY | | | (LAB) | | | SERVICES, | | | | | | CORE | | + + + + + + | EGFR | >60 | >60 mL/min | [facility] | | | - | | | LABORATORY | | | GABONESE | | | SERVICES, | | | | | | CORE | | + + + + + + | EGFR NON | >60 | >60 mL/min | [facility] | | | -DORY | | | LABORATORY | | | [...] + + + + | CALCIUM, | 8.1 [...] + + + + | TOTAL | 5.2 (L) | 6.4 - 8.2 g/dL | [facility] | | | PROTEIN, | | | LABORATORY | | | PLASMA | | | SERVICES, | | | (LAB) | | | CORE | | + + + + + + | ALBUMIN, | 2.5 (L) | 3.5 - 4.7 g/dL | [facility] | | | PLASMA | | | LABORATORY | | | (LAB) | | | SERVICES, | | | | | | CORE | | + + + + + + | ALK PHOS | 86 | 42 - 98 U/L | [facility] | | | | | | LABORATORY | | | | | | SERVICES, | | | | | | CORE | | + + + + + + | AST(SGOT) | 9 [...] + + + | ANION GAP | 5 | 4 - 11 mmol/L | [facility] [...] [facility] | [address] | [place] [address] | | | SERVICES, CORE | [address] | | | + + + + + PRODUCT - PLATELET PHERESIS LEUKOREDUCED (04/27/2019 3:33 AM PDT) + + + + + [...] + + + + | PRODUCT | [id number] | | [facility] | | | UNIT [...] + + + + | EXPIRATION | [id number] | | [facility] | | | DATE [...] + + + + | BLOOD | [id number] | | [facility] | | | PRODUCT [...] | + + + + + | [facility] | [address] | [place] [address] | | | SERVICES, | [address] | | | | TRANSFUSION MEDICINE | | | | + + + + + CBC AND AUTO DIFF (04/27/2019 1:02 AM PDT) + + + + + + | Component | Value | Ref Range | Performed | Pathologist | | | | | At | Signature | + + + + + + | WHITE CELL | <0.10 (L) | 3.50 - 10.80 | [facility] | | | COUNT | | K/cu mm | LABORATORY | | | | | | SERVICES, | | | | | | CORE | | + + + + + + | RED CELL | 2.94 (L) | 4.00 - 5.20 | [facility] [...] + + + + | HEMATOCRIT | 24.8 (L) | 36.0 - 46.0 % | [facility] | | | | | | LABORATORY | | | | | | SERVICES, | | | | | | CORE | | + + + + + + | MCV | 84.4 | 80.0 - 100.0 fL | [facility] | | | | | | LABORATORY | | | | | | SERVICES, | | | | | | CORE | | + + + + + + | MCHC | 32.7 | 32.0 - 36.0 | [facility] | | | | | g/dL | LABORATORY | | | | | | SERVICES, | | | | | | CORE | | + + + + + + | RDW SD | 39.5 | 35.1 - 46.3 fL | [facility] [...] + + + + | NEUTROPHIL | Comment: WBC <300; | | [facility] | | | % | differential not | | LABORATORY | | | | performed. | | SERVICES, | | | | | | CORE | | + + + + + + | LYMPHOCYTE | Comment: WBC <300; | | [facility] | | | % | differential not | | LABORATORY | | | | performed. | | SERVICES, | | | | | | CORE | | + + + + + + | MONOCYTE % | Comment: WBC <300; | | [facility] | | | | differential not | | LABORATORY | | | | performed. | | SERVICES, | | | | | | CORE | | + + + + + + | EOS % | Comment: WBC <300; | | [facility] | | | | differential not | | LABORATORY | | | | performed. | | SERVICES, | | | | | | CORE | | + + + + + + | BASO % | Comment: WBC <300; | | [facility] | | | | differential not | | LABORATORY | | | | performed. | | SERVICES, | | | | | | CORE | | + + + + + + | IG% | Comment: WBC <300; | | [facility] | | | | differential not | | LABORATORY | | | | performed. | | SERVICES, | | | | | | CORE | | + + + + + + | NEUTROPHIL | Comment: WBC <300; | | [facility] | | | # | differential not | | LABORATORY | | | | performed. | | SERVICES, | | | | | | CORE | | + + + + + + | LYMPHOCYTE | Comment: WBC <300; | | [facility] | | | # | differential not | | LABORATORY | | | | performed. | | SERVICES, | | | | | | CORE | | + + + + + + | MONOCYTE # | Comment: WBC <300; | | [facility] | | | | differential not | | LABORATORY | | | | performed. | | SERVICES, | | | | | | CORE | | + + + + + + | EOS # | Comment: WBC <300; | | [facility] | | | | differential not | | LABORATORY | | | | performed. | | SERVICES, | | | | | | CORE | | + + + + + + | BASO # | Comment: WBC <300; | | [facility] | | | | differential not | | LABORATORY | | | | performed. | | SERVICES, | | | | | | CORE | | + + + + + + | IG# | Comment: WBC <300; | | [facility] | | | | differential not | | LABORATORY | | | | performed. | | SERVICES, | | | | | | CORE | | + + + + + + + + | Specimen | + + | Blood - Blood | | (substance) | + + + + + + + | Performing | Address | City/State/Zipcode | Phone Number | | Organization | | | | + + + + + | [facility] | [address] | [place] [address] | | | SERVICES, CORE | [address] | | | + + + + + MAGNESIUM, PLASMA (04/27/2019 1:02 AM PDT) + +-------+ + + + | Component | Value | Ref Range | Performed | Pathologist | | | | | At | Signature | + +-------+ + + + | MAGNESIUM,P | 1.6 | 1.6 - 2.6 mg/dL | [facility] | | | SURENDRAMA | | | [...] | + + + + + | [facility] | [address] | [place] [address] | | | SERVICES, LUZMARIA | [address] | | | + + + + + PHOSPHORUS, PLASMA (04/27/2019 1:02 AM PDT) + +---------+ + + + | Component | Value | Ref Range | Performed | Pathologist | | | | | At | Signature | + +---------+ + + + | PHOSPHORUS, | 2.3 (L) | 2.4 - 4.7 mg/dL | [facility] [...] [facility] | [address] | [place] [address] | | | SERVICES, CORE | [address] | | | + + + + + COMPLETE METABOLIC SET (NA,K,CL,CO2,BUN,CREAT,GLUC,CA,AST,ALT,BILI TOTAL,ALK PHOS,ALB,PROT TOTAL) (04/27/2019 1:02 AM PDT) + + + + + + | Component | Value | Ref Range | Performed | Pathologist | | | | | At | Signature | + + + + + + | GLUCOSE, | 104 [...] + + + + | CREATININE | 0.53 (L) | 0.60 - 1.10 | [facility] | | | PLASMA | | mg/dL | LABORATORY | | | (LAB) | | | SERVICES, | | | | | | CORE | | + + + + + + | EGFR | >60 | >60 mL/min | [facility] | | | - | | | LABORATORY | | | GABONESE | | | SERVICES, | | | | | | CORE | | + + + + + + | EGFR NON | >60 | >60 mL/min | [facility] | | | -DORY | | | LABORATORY | | | [...] + + + + | CHLORIDE, | 112 (H) | 97 - 108 mmol/L | [...] + + + + | CALCIUM, | 7.5 (L) | 8.6 - 10.2 | [facility] | | | PLASMA | | mg/dL | LABORATORY | | | (LAB) | | | SERVICES, | | | | | | CORE | | + + + + + + | CALCIUM(ALB | 8.7 [...] + + + + | TOTAL | 5.2 (L) | 6.4 - 8.2 g/dL | [facility] | | | PROTEIN, | | | LABORATORY | | | PLASMA | | | SERVICES, | | | (LAB) | | | CORE | | + + + + + + | ALBUMIN, | 2.5 (L) | 3.5 - 4.7 g/dL | [facility] | | | PLASMA | | | LABORATORY | | | (LAB) | | | SERVICES, | | | | | | CORE | | + + + + + + | ALK PHOS | 86 | 42 - 98 U/L | [facility] | | | | | | LABORATORY | | | | | | SERVICES, | | | | | | CORE | | + + + + + + | AST(SGOT) | 9 | <=41 U/L | [facility] | | | | | | LABORATORY | | | | | | SERVICES, | | | | | | CORE | | + + + + + + | ALT (SGPT) | 11 | <=60 U/L | [facility] | | [...] MDRD equation recommended by the National | [facility] | | Kidney Disease Education Program. Estimated [...] | + + + + + | [facility] | [address] | [place] [address] | | | SERVICES, CORE | [address] | | | + + + + + TACROLIMUS, WHOLE BLOOD (04/26/2019 8:14 AM PDT) + + + + + + | Component | Value | Ref Range | Performed | Pathologist | | | | | At | Signature | + + + + + + | TACROLIMUS | 7.1Comment: DRAW tacro | 5.0 - 15.0 | [facility] | | | ([address]) | level prior to giving | ng/mL | LABORATORY | | | | 0900 dose | | SERVICES, | | | | | | SPECIAL IMM | | | | | | + COAG | | + + + + + + + + | Specimen | + + | Blood - Blood | | (substance) | + + + + + | Narrative | Performed At | + + + | Test performed by immunoassay using [employer] i2000. . | [facility] | | [...] | + + + + + | [facility] | [address] | [place] [address] | | | SERVICES, SPECIAL | [address] | | | | IMM + COAG | | | | + + + + + PHOSPHORUS, PLASMA (04/26/2019 1:31 AM PDT) + +-------+ + + + | Component | Value | Ref Range | Performed | Pathologist | | | | | At | Signature | + +-------+ + + + | PHOSPHORUS, | 2.4 | 2.4 - 4.7 mg/dL | [facility] [...] + | [facility] | [address] | [place] [address] | | | SERVICES, LUZMARIA | [address] | | | + + + + + MAGNESIUM, PLASMA (04/26/2019 1:31 AM PDT) + +-------+ + + + | Component | Value | Ref Range | Performed | Pathologist | | | | | At | Signature | + +-------+ + + + | MAGNESIUM,P | 1.6 | 1.6 - 2.6 mg/dL | [facility] [...] + + | [facility] | [address] [facility] | [place] [address] | | | SERVICES, CORE | [address] | | | + + + + + COMPLETE METABOLIC SET (NA,K,CL,CO2,BUN,CREAT,GLUC,CA,AST,ALT,BILI TOTAL,ALK PHOS,ALB,PROT TOTAL) (04/26/2019 1:31 AM PDT) + + + + + + | Component | Value | Ref Range | Performed | Pathologist | | | | | At | Signature | + + + + + + | GLUCOSE, | 85 [...] + + + + | CREATININE | 0.52 (L) | 0.60 - 1.10 | [facility] | | | PLASMA | | mg/dL | LABORATORY | | | (LAB) | | | SERVICES, | | | | | | CORE | | + + + + + + | EGFR | >60 | >60 mL/min | [facility] | | | - | | | LABORATORY | | | GABONESE | | | SERVICES, | | | | | | CORE | | + + + + + + | EGFR NON | >60 | >60 mL/min | [facility] | | | -DORY | | | LABORATORY | | | [...] + + + + | CHLORIDE, | 112 (H) | 97 - 108 mmol/L | [...] + + + + | CALCIUM, | 7.9 (L) | 8.6 - 10.2 | [facility] [...] + + + + | ALBUMIN, | 2.6 (L) | 3.5 - 4.7 g/dL | [...] + + + | ALT (SGPT) | 11 | <=60 U/L | [facility] | | [...] | + + + + + | [facility] | [address] | [place] [address] | | | SERVICES, CORE | [address] | | | + + + + + CBC AND AUTO DIFF (04/26/2019 1:24 AM PDT) + + + + + + | Component | Value | Ref Range | Performed | Pathologist | | | | | At | Signature | + + + + + + | WHITE CELL | <0.10 (L) | 3.50 - 10.80 | [facility] [...] + + + + | HEMOGLOBIN | 9.2 (L) | 12.0 - 16.0 | [facility] | | | | | g/dL | LABORATORY | | | | | | SERVICES, | | | | | | CORE | | + + + + + + | HEMATOCRIT | 27.3 (L) | 36.0 - 46.0 % | [facility] | | | | | | LABORATORY | | | | | | SERVICES, | | | | | | CORE | | + + + + + + | MCV | 84.8 | 80.0 - 100.0 fL | [facility] [...] + + + | RDW SD | 39.8 | 35.1 - 46.3 fL | [facility] | | | | | | LABORATORY | | | | | | SERVICES, | | | | | | CORE | | + + + + + + | PLATELET | 31 (L) | 150 - 400 K/cu | [...] + + + + | NEUTROPHIL | Comment: WBC <300; | | [facility] | | | % | differential not | | LABORATORY | | | | performed. | | SERVICES, | | | | | | CORE | | + + + + + + | LYMPHOCYTE | Comment: WBC <300; | | [facility] | | | % | differential not | | LABORATORY | | | | performed. | | SERVICES, | | | | | | CORE | | + + + + + + | MONOCYTE % | Comment: WBC <300; | | [facility] | | | | differential not | | LABORATORY | | | | performed. | | SERVICES, | | | | | | CORE | | + + + + + + | EOS % | Comment: WBC <300; | | [facility] | | | | differential not | | LABORATORY | | | | performed. | | SERVICES, | | | | | | CORE | | + + + + + + | BASO % | Comment: WBC <300; | | [facility] | | | | differential not | | LABORATORY | | | | performed. | | SERVICES, | | | | | | CORE | | + + + + + + | IG% | Comment: WBC <300; | | [facility] | | | | differential not | | LABORATORY | | | | performed. | | SERVICES, | | | | | | CORE | | + + + + + + | NEUTROPHIL | Comment: WBC <300; | | [facility] | | | # | differential not | | LABORATORY | | | | performed. | | SERVICES, | | | | | | CORE | | + + + + + + | LYMPHOCYTE | Comment: WBC <300; | | [facility] | | | # | differential not | | LABORATORY | | | | performed. | | SERVICES, | | | | | | CORE | | + + + + + + | MONOCYTE # | Comment: WBC <300; | | [facility] | | | | differential not | | LABORATORY | | | | performed. | | SERVICES, | | | | | | CORE | | + + + + + + | EOS # | Comment: WBC <300; | | [facility] | | | | differential not | | LABORATORY | | | | performed. | | SERVICES, | | | | | | CORE | | + + + + + + | BASO # | Comment: WBC <300; | | [facility] | | | | differential not | | LABORATORY | | | | performed. | | SERVICES, | | | | | | CORE | | + + + + + + | IG# | Comment: WBC <300; | | [facility] | | | | differential not | | LABORATORY | | | | performed. | | SERVICES, | | | | | | CORE | | + + + + + + + + | Specimen | + + | Blood - Blood | | (substance) | + + + + + + + | Performing | Address | City/State/Zipcode | Phone Number | | Organization | | | | + + + + + | [facility] | [address] | [place] [address] | | | SERVICES, CORE | [address] | | | + + + + + MAGNESIUM, PLASMA (04/25/2019 5:00 PM PDT) + +-------+ + + + | Component | Value | Ref Range | Performed | Pathologist | | | | | At | Signature | + +-------+ + + + | MAGNESIUM,P | 1.7 | 1.6 - 2.6 mg/dL | [facility] | | | L[facility] | | | [...] [facility] | [address] | [place] [address] | | | LUZMARIA FAN | [address] | | | + + + + + BASIC METABOLIC SET (NA, K, CL, TCO2, BUN, CR, GLU, CA) (04/25/2019 5:00 PM PDT) + + + + + + | Component | Value | Ref Range | Performed | Pathologist | | | | | At | Signature | + + + + + + | GLUCOSE, | 98 | 70 - 99 mg/dL | [facility] [...] | | | LABORATORY | | | GABONESE | | | SERVICES, | | | | | | CORE | | + + + + + + | EGFR NON | >60 | >60 mL/min | [facility] | | | -DORY | | | LABORATORY | | | [...] + + + + | POTASSIUM, | 3.5 [...] | + + + + + | [facility] | [address] | [place] [address] | | | SERVICES, CORE | [address] | | | + + + + + GI BACTERIAL PANEL, STOOL (04/25/2019 4:43 PM PDT) + + + + + [...] + | [facility] | [address] | [place] [address] | | | [place] | | | | + + + + + GI VIRUS PANEL, STOOL (04/25/2019 4:43 PM PDT) + + + + + [...] | Not Detected | Not Detected | [facility] | | | | | | [...] + | [facility] | [address] | [place] [address] | | | [place] | | | | + + + + + CBC AND AUTO DIFF (04/25/2019 3:27 PM PDT) + + + + + + | Component | Value | Ref Range | Performed | Pathologist | | | | | At | Signature | + + + + + + | WHITE CELL | <0.10 (L) | 3.50 - 10.80 | [facility] | | | COUNT | | K/cu mm | LABORATORY | | | | | | SERVICES, | | | | | | CORE | | + + + + + + | RED CELL | 3.80 (L) | 4.00 - 5.20 | [facility] [...] + + + + | HEMATOCRIT | 31.8 (L) | 36.0 - 46.0 % | [facility] | | | | | | LABORATORY | | | | | | SERVICES, | | | | | | CORE | | + + + + + + | MCV | 83.7 | 80.0 - 100.0 fL | [facility] | | | | | | LABORATORY | | | | | | SERVICES, | | | | | | CORE | | + + + + + + | MCHC | 34.0 | 32.0 - 36.0 | [facility] | | | | | g/dL | LABORATORY | | | | | | SERVICES, | | | | | | CORE | | + + + + + + | RDW SD | 39.6 | 35.1 - 46.3 fL | [facility] | | | | | | LABORATORY | | | | | | SERVICES, | | | | | | CORE | | + + + + + + | PLATELET | 58 (L) | 150 - 400 K/cu | [...] + + + + | NEUTROPHIL | Comment: WBC <300; | | [facility] | | | % | differential not | | LABORATORY | | | | performed. | | SERVICES, | | | | | | CORE | | + + + + + + | LYMPHOCYTE | Comment: WBC <300; | | [facility] | | | % | differential not | | LABORATORY | | | | performed. | | SERVICES, | | | | | | CORE | | + + + + + + | MONOCYTE % | Comment: WBC <300; | | [facility] | | | | differential not | | LABORATORY | | | | performed. | | SERVICES, | | | | | | CORE | | + + + + + + | EOS % | Comment: WBC <300; | | [facility] | | | | differential not | | LABORATORY | | | | performed. | | SERVICES, | | | | | | CORE | | + + + + + + | BASO % | Comment: WBC <300; | | [facility] | | | | differential not | | LABORATORY | | | | performed. | | SERVICES, | | | | | | CORE | | + + + + + + | IG% | Comment: WBC <300; | | [facility] | | | | differential not | | LABORATORY | | | | performed. | | SERVICES, | | | | | | CORE | | + + + + + + | NEUTROPHIL | Comment: WBC <300; | | [facility] | | | # | differential not | | LABORATORY | | | | performed. | | SERVICES, | | | | | | CORE | | + + + + + + | LYMPHOCYTE | Comment: WBC <300; | | [facility] | | | # | differential not | | LABORATORY | | | | performed. | | SERVICES, | | | | | | CORE | | + + + + + + | MONOCYTE # | Comment: WBC <300; | | [facility] | | | | differential not | | LABORATORY | | | | performed. | | SERVICES, | | | | | | CORE | | + + + + + + | EOS # | Comment: WBC <300; | | [facility] | | | | differential not | | LABORATORY | | | | performed. | | SERVICES, | | | | | | CORE | | + + + + + + | BASO # | Comment: WBC <300; | | [facility] | | | | differential not | | LABORATORY | | | | performed. | | SERVICES, | | | | | | CORE | | + + + + + + | IG# | Comment: WBC <300; | | [facility] | | | | differential not | | LABORATORY | | | | performed. | | SERVICES, | | | | | | CORE | | + + + + + + + + | Specimen | + + | Blood - Blood | | (substance) | + + + + + | Narrative | Performed At | + + + | Include differential if WBC greater than or equal to 0.5 | [facility] | | | LABORATORY | | | SERVICES, CORE | + + + + + + + + | Performing | Address | City/State/Zipcode | Phone Number | | Organization | | | | + + + + + | [facility] | [address] | [place] [address] | | | SERVICES, CORE | [address] | | | + + + + + C. DIFFICILE TOXIN, W/REFLEX CONFIRMATION IF INDETERMINATE RESULTS (04/25/2019 1:15 PM PDT ) + + + + + + [...] [facility] | [address] | [place] [address] | | | SERVICES, CORE | [address] | | | + + + + + VRE (PENNIE) BY PCR (04/25/2019 11:14 AM PDT) + + + + [...] [facility] | [address] | [place] [address] | | | SERVICES, CORE | [address] | | | + + + + + CBC AND AUTO DIFF (04/25/2019 12:00 AM PDT) + + + + + + | Component | Value | Ref Range | Performed | Pathologist | | | | | At | Signature | + + + + + + | WHITE CELL | <0.10 (L) | 3.50 - 10.80 | [facility] | | | COUNT | | K/cu mm | LABORATORY | | | | | | SERVICES, | | | | | | CORE | | + + + + + + | RED CELL | 3.84 (L) | 4.00 - 5.20 | [facility] [...] + + + + | HEMATOCRIT | 32.7 (L) | 36.0 - 46.0 % | [...] + + + + | MCHC | 32.7 | 32.0 - 36.0 | [facility] | | | | | g/dL | LABORATORY | | | | | | SERVICES, | | | | | | CORE | | + + + + + + | RDW SD | 41.1 | 35.1 - 46.3 fL | [facility] | | | | | | LABORATORY | | | | | | SERVICES, | | | | | | CORE | | + + + + + + | PLATELET | 66 (L) | 150 - 400 K/cu | [...] + + + + | NEUTROPHIL | Comment: WBC <300; | | [facility] | | | % | differential not | | LABORATORY | | | | performed. | | SERVICES, | | | | | | CORE | | + + + + + + | LYMPHOCYTE | Comment: WBC <300; | | [facility] | | | % | differential not | | LABORATORY | | | | performed. | | SERVICES, | | | | | | CORE | | + + + + + + | MONOCYTE % | Comment: WBC <300; | | [facility] | | | | differential not | | LABORATORY | | | | performed. | | SERVICES, | | | | | | CORE | | + + + + + + | EOS % | Comment: WBC <300; | | [facility] | | | | differential not | | LABORATORY | | | | performed. | | SERVICES, | | | | | | CORE | | + + + + + + | BASO % | Comment: WBC <300; | | [facility] | | | | differential not | | LABORATORY | | | | performed. | | SERVICES, | | | | | | CORE | | + + + + + + | IG% | Comment: WBC <300; | | [facility] | | | | differential not | | LABORATORY | | | | performed. | | SERVICES, | | | | | | CORE | | + + + + + + | NEUTROPHIL | Comment: WBC <300; | | [facility] | | | # | differential not | | LABORATORY | | | | performed. | | SERVICES, | | | | | | CORE | | + + + + + + | LYMPHOCYTE | Comment: WBC <300; | | [facility] | | | # | differential not | | LABORATORY | | | | performed. | | SERVICES, | | | | | | CORE | | + + + + + + | MONOCYTE # | Comment: WBC <300; | | [facility] | | | | differential not | | LABORATORY | | | | performed. | | SERVICES, | | | | | | CORE | | + + + + + + | EOS # | Comment: WBC <300; | | [facility] | | | | differential not | | LABORATORY | | | | performed. | | SERVICES, | | | | | | CORE | | + + + + + + | BASO # | Comment: WBC <300; | | [facility] | | | | differential not | | LABORATORY | | | | performed. | | SERVICES, | | | | | | CORE | | + + + + + + | IG# | Comment: WBC <300; | | [facility] | | | | differential not | | LABORATORY | | | | performed. | | SERVICES, | | | | [...] [facility] | [address] | [place] [address] | | | SERVICES, CORE | [address] | | | + + + + + ASPERGILLUS GALACTOMANNAN ANTIGEN, SERUM (04/25/2019 12:00 AM PDT) + + + + + [...] + + + | ASP GAL | 0.26 | <=0.49 Index | [facility] | | [...] | + + + + + | [facility] | [address] | [place] [address] | | | SERVICES, SPECIAL | [address] | | | | IMM + COAG | | | | + + + + + INR (04/25/2019 12:00 AM PDT) + +-------+ + + + | Component | Value | Ref Range | Performed | Pathologist | | | | | At | Signature | + +-------+ + + + | INR | 0.96 | 0.90 - 1.20 INR | [facility] [...] [facility] | [address] | [place] [address] | | | SERVICESLUZMARIA | [address] | | | + + + + + LDH TOTAL, PLASMA (04/25/2019 12:00 AM PDT) + +---------+ + + + | Component | Value | Ref Range | Performed | Pathologist | | | | | At | Signature | + +---------+ + + + | LD TOTAL, | 205 | <=250 U/L | [facility] | | [...] [facility] | [address] | [place] [address] | | | SERVICES, CORE | [address] | | | + + + + + PHOSPHORUS, PLASMA (04/25/2019 12:00 AM PDT) + +-------+ + + + [...] [facility] | [address] | [place] [address] | | | SERVICES, CORE | [address] | | | + + + + + MAGNESIUM, PLASMA (04/25/2019 12:00 AM PDT) + +-------+ + + + [...] | + + + + + | [facility] | [address] | [place] [address] | | | [facility] FAN | [address] | | | + + + + + COMPLETE METABOLIC SET (NA,K,CL,CO2,BUN,CREAT,GLUC,CA,AST,ALT,BILI TOTAL,ALK PHOS,ALB,PROT TOTAL) (04/25/2019 12:00 AM PDT) + + + + + + | Component | Value | Ref Range | Performed | Pathologist | | | | | At | Signature | + + + + + + | GLUCOSE, | 86 [...] | | | LABORATORY | | | GABONESE | | | SERVICES, | | | | | | CORE | | + + + + + + | EGFR NON | >60 | >60 mL/min | [facility] | | | -DORY | | | LABORATORY | | | RICAN | | | SERVICES, | | | | | | CORE | | + + + + + + | SODIUM, | 139 [...] + + + + | TOTAL | 5.9 (L) | 6.4 - 8.2 g/dL | [facility] | | | PROTEIN, | | | LABORATORY | | | PLASMA | | | SERVICES, | | | (LAB) | | | CORE | | + + + + + + | ALBUMIN, | 2.8 (L) | 3.5 - 4.7 g/dL | [facility] | | | PLASMA | | | LABORATORY | | | (LAB) | | | SERVICES, | | | | | | CORE | | + + + + + + | ALK PHOS | 100 (H) | 42 - 98 U/L | [facility] | | | | | | LABORATORY | | | | | | SERVICES, | | | | | | CORE | | + + + + + + | AST(SGOT) | 16 | <=41 U/L | [facility] | | | | | | LABORATORY | | | | | | SERVICES, | | | | | | CORE | | + + + + + + | ALT (SGPT) | 13 | <=60 U/L | [facility] | | [...] | + + + + + | [facility] | [address] | [place] [address] | | | SERVICES, CORE | [address] | | | + + + + + CBC AND AUTO DIFF (04/24/2019 12:08 AM PDT) + + + + + + | Component | Value | Ref Range | Performed | Pathologist | | | | | At | Signature | + + + + + + | WHITE CELL | <0.10 (L) | 3.50 - 10.80 | [facility] | | | COUNT | | K/cu mm | LABORATORY | | | | | | SERVICES, | | | | | | CORE | | + + + + + + | RED CELL | 3.78 (L) | 4.00 - 5.20 | [facility] [...] + + + + | MCV | 86.0 | 80.0 - 100.0 fL | [facility] [...] + + + | RDW SD | 42.0 | 35.1 - 46.3 fL | [facility] | | | | | | LABORATORY | | | | | | SERVICES, | | | | | | CORE | | + + + + + + | PLATELET | 92 (L) | 150 - 400 K/cu | [facility] | | | COUNT | | mm | LABORATORY | | | | | | SERVICES, | | | | | | CORE | | + + + + + + | MPV | 11.7 | 9.7 - 12.3 fL | [facility] [...] + + + + | NEUTROPHIL | Comment: WBC <300; | | [facility] | | | % | differential not | | LABORATORY | | | | performed. | | SERVICES, | | | | | | CORE | | + + + + + + | LYMPHOCYTE | Comment: WBC <300; | | [facility] | | | % | differential not | | LABORATORY | | | | performed. | | SERVICES, | | | | | | CORE | | + + + + + + | MONOCYTE % | Comment: WBC <300; | | [facility] | | | | differential not | | LABORATORY | | | | performed. | | SERVICES, | | | | | | CORE | | + + + + + + | EOS % | Comment: WBC <300; | | [facility] | | | | differential not | | LABORATORY | | | | performed. | | SERVICES, | | | | | | CORE | | + + + + + + | BASO % | Comment: WBC <300; | | [facility] | | | | differential not | | LABORATORY | | | | performed. | | SERVICES, | | | | | | CORE | | + + + + + + | IG% | Comment: WBC <300; | | [facility] | | | | differential not | | LABORATORY | | | | performed. | | SERVICES, | | | | | | CORE | | + + + + + + | NEUTROPHIL | Comment: WBC <300; | | [facility] | | | # | differential not | | LABORATORY | | | | performed. | | SERVICES, | | | | | | CORE | | + + + + + + | LYMPHOCYTE | Comment: WBC <300; | | [facility] | | | # | differential not | | LABORATORY | | | | performed. | | SERVICES, | | | | | | CORE | | + + + + + + | MONOCYTE # | Comment: WBC <300; | | [facility] | | | | differential not | | LABORATORY | | | | performed. | | SERVICES, | | | | | | CORE | | + + + + + + | EOS # | Comment: WBC <300; | | [facility] | | | | differential not | | LABORATORY | | | | performed. | | SERVICES, | | | | | | CORE | | + + + + + + | BASO # | Comment: WBC <300; | | [facility] | | | | differential not | | LABORATORY | | | | performed. | | SERVICES, | | | | | | CORE | | + + + + + + | IG# | Comment: WBC <300; | | [facility] | | | | differential not | | LABORATORY | | | | performed. | | SERVICES, | | | | [...] [facility] | [address] | [place] [address] | | | SERVICES, CORE | [address] | | | + + + + + PHOSPHORUS, PLASMA (04/24/2019 12:08 AM PDT) + +-------+ + + + [...] | + + + + + | [facility] | [address] | [place] [address] | | | SERVICES, CORE | [address] | | | + + + + + MAGNESIUM, PLASMA (04/24/2019 12:08 AM PDT) + +-------+ + + + [...] [facility] | [address] | [place] [address] | | | SERVICES, CORE | [address] | | | + + + + + COMPLETE METABOLIC SET (NA,K,CL,CO2,BUN,CREAT,GLUC,CA,AST,ALT,BILI TOTAL,ALK PHOS,ALB,PROT TOTAL) (04/24/2019 12:08 AM PDT) + + + + + + | Component | Value | Ref Range | Performed | Pathologist | | | | | At | Signature | + + + + + + | GLUCOSE, | 83 | 70 - 99 mg/dL | [facility] [...] + + + + | CREATININE | 0.48 (L) | 0.60 - 1.10 | [facility] | | | PLASMA | | mg/dL | LABORATORY | | | (LAB) | | | SERVICES, | | | | | | CORE | | + + + + + + | EGFR | >60 | >60 mL/min | [facility] | | | - | | | LABORATORY | | | GABONESE | | | SERVICES, | | | | | | CORE | | + + + + + + | EGFR NON | >60 | >60 mL/min | [facility] | | | -DORY | | | LABORATORY | | | RICAN | | | SERVICES, | | | | | | CORE | | + + + + + + | SODIUM, | 139 [...] + + + + | ALBUMIN, | 2.8 [...] [facility] | [address] | [place] [address] | | | SERVICES, CORE | [address] | | | + + + + + CBC AND AUTO DIFF (04/23/2019 4:25 PM PDT) + + + + + + | Component | Value | Ref Range | Performed | Pathologist | | | | | At | Signature | + + + + + + | WHITE CELL | <0.10 (L) | 3.50 - 10.80 | [facility] | | | COUNT | | K/cu mm | LABORATORY | | | | | | SERVICES, | | | | | | CORE | | + + + + + + | RED CELL | 3.96 (L) | 4.00 - 5.20 | [facility] | | | COUNT | | M/cu mm | LABORATORY | | | | | | SERVICES, | | | | | | CORE | | + + + + + + | HEMOGLOBIN | 11.0 (L) | 12.0 - 16.0 | [facility] [...] + + + + | MCV | 86.9 | 80.0 - 100.0 fL | [facility] [...] + + + | RDW SD | 42.0 | 35.1 - 46.3 fL | [facility] [...] + + + + | MPV | 12.9 (H) | 9.7 - 12.3 fL | [...] + + + + | NEUTROPHIL | Comment: WBC <300; | | [facility] | | | % | differential not | | LABORATORY | | | | performed. | | SERVICES, | | | | | | CORE | | + + + + + + | LYMPHOCYTE | Comment: WBC <300; | | [facility] | | | % | differential not | | LABORATORY | | | | performed. | | SERVICES, | | | | | | CORE | | + + + + + + | MONOCYTE % | Comment: WBC <300; | | [facility] | | | | differential not | | LABORATORY | | | | performed. | | SERVICES, | | | | | | CORE | | + + + + + + | EOS % | Comment: WBC <300; | | [facility] | | | | differential not | | LABORATORY | | | | performed. | | SERVICES, | | | | | | CORE | | + + + + + + | BASO % | Comment: WBC <300; | | [facility] | | | | differential not | | LABORATORY | | | | performed. | | SERVICES, | | | | | | CORE | | + + + + + + | IG% | Comment: WBC <300; | | [facility] | | | | differential not | | LABORATORY | | | | performed. | | SERVICES, | | | | | | CORE | | + + + + + + | NEUTROPHIL | Comment: WBC <300; | | [facility] | | | # | differential not | | LABORATORY | | | | performed. | | SERVICES, | | | | | | CORE | | + + + + + + | LYMPHOCYTE | Comment: WBC <300; | | [facility] | | | # | differential not | | LABORATORY | | | | performed. | | SERVICES, | | | | | | CORE | | + + + + + + | MONOCYTE # | Comment: WBC <300; | | [facility] | | | | differential not | | LABORATORY | | | | performed. | | SERVICES, | | | | | | CORE | | + + + + + + | EOS # | Comment: WBC <300; | | [facility] | | | | differential not | | LABORATORY | | | | performed. | | SERVICES, | | | | | | CORE | | + + + + + + | BASO # | Comment: WBC <300; | | [facility] | | | | differential not | | LABORATORY | | | | performed. | | SERVICES, | | | | | | CORE | | + + + + + + | IG# | Comment: WBC <300; | | [facility] | | | | differential not | | LABORATORY | | | | performed. | | SERVICES, | | | | | | CORE | | + + + + + + + + | Specimen | + + | Blood - Blood | | (substance) | + + + + + | Narrative | Performed At | + + + | Include differential if WBC greater than or equal to 0.5 | [facility] | | | LABORATORY | | | MENG, LUZMARIA | + + + + + + + + | Performing | Address | City/State/Zipcode | Phone Number | | Organization | | | | + + + + + | [facility] | [address] | [place] [address] | | | LUZMARIA FAN | [address] | | | + + + + + CBC AND AUTO DIFF (04/22/2019 11:48 PM PDT) + + + + + + | Component | Value | Ref Range | Performed | Pathologist | | | | | At | Signature | + + + + + + | WHITE CELL | 0.13 (L) | 3.50 - 10.80 | [facility] | | | COUNT | | K/cu mm | LABORATORY | | | | | | SERVICES, | | | | | | CORE | | + + + + + + | RED CELL | 3.93 (L) | 4.00 - 5.20 | [facility] | | | COUNT | | M/cu mm | LABORATORY | | | | | | SERVICES, | | | | | | CORE | | + + + + + + | HEMOGLOBIN | 11.2 (L) | 12.0 - 16.0 | [facility] | | | | | g/dL | LABORATORY | | | | | | SERVICES, | | | | | | CORE | | + + + + + + | HEMATOCRIT | 33.5 (L) | 36.0 - 46.0 % | [...] + + + + | MCHC | 33.4 | 32.0 - 36.0 | [facility] | | | | | g/dL | LABORATORY | | | | | | SERVICES, | | | | | | CORE | | + + + + + + | RDW SD | 42.8 | 35.1 - 46.3 fL | [facility] | | | | | | LABORATORY | | | | | | SERVICES, | | | | | | CORE | | + + + + + + | PLATELET | 140 (L) | 150 - 400 K/cu | [...] + + + + | NEUTROPHIL | Comment: WBC <300; | | [facility] | | | % | differential not | | LABORATORY | | | | performed. | | SERVICES, | | | | | | CORE | | + + + + + + | LYMPHOCYTE | Comment: WBC <300; | | [facility] | | | % | differential not | | LABORATORY | | | | performed. | | SERVICES, | | | | | | CORE | | + + + + + + | MONOCYTE % | Comment: WBC <300; | | [facility] | | | | differential not | | LABORATORY | | | | performed. | | SERVICES, | | | | | | CORE | | + + + + + + | EOS % | Comment: WBC <300; | | [facility] | | | | differential not | | LABORATORY | | | | performed. | | SERVICES, | | | | | | CORE | | + + + + + + | BASO % | Comment: WBC <300; | | [facility] | | | | differential not | | LABORATORY | | | | performed. | | SERVICES, | | | | | | CORE | | + + + + + + | IG% | Comment: WBC <300; | | [facility] | | | | differential not | | LABORATORY | | | | performed. | | SERVICES, | | | | | | CORE | | + + + + + + | NEUTROPHIL | Comment: WBC <300; | | [facility] | | | # | differential not | | LABORATORY | | | | performed. | | SERVICES, | | | | | | CORE | | + + + + + + | LYMPHOCYTE | Comment: WBC <300; | | [facility] | | | # | differential not | | LABORATORY | | | | performed. | | SERVICES, | | | | | | CORE | | + + + + + + | MONOCYTE # | Comment: WBC <300; | | [facility] | | | | differential not | | LABORATORY | | | | performed. | | SERVICES, | | | | | | CORE | | + + + + + + | EOS # | Comment: WBC <300; | | [facility] | | | | differential not | | LABORATORY | | | | performed. | | SERVICES, | | | | | | CORE | | + + + + + + | BASO # | Comment: WBC <300; | | [facility] | | | | differential not | | LABORATORY | | | | performed. | | SERVICES, | | | | | | CORE | | + + + + + + | IG# | Comment: WBC <300; | | [facility] | | | | differential not | | LABORATORY | | | | performed. | | SERVICES, | | | | [...] | + + + + + | [facility] | [address] | [place] [address] | | | SERVICES, CORE | [address] | | | + + + + + CMV PCR QUANTITATION, PLASMA (04/22/2019 11:47 PM PDT) + + + + + [...] | | characteristics determined by the [facility] | | | [facility]. It has not been cleared or approved by | | | the Food and Drug Administration. FDA approval is not required for | | | clinical use of this test, and therefore validation was done as | | | required under the requirements of the Clinical Laboratory Improvement | | | Act of 1988. The [facility] | | | Diagnostic Center is a fully licensed and/or accredited clinical | | | laboratory under CLIA, CAP, and the [facility]. | | + + + + + + + + | Performing | Address | City/State/[place] [facility] | Phone Number | | Organization | | | | + + + + + | [facility] | [address] | [place] [address] | | | DIAGNOSTIC | [address] | | | | LABORATORIES | | | | + + + + + PHOSPHORUS, PLASMA (04/22/2019 11:47 PM PDT) + +-------+ + + + [...] | + + + + + | [facility] | [address] | [place] [address] | | | MENG, LUZMARIA | [address] | | | + + + + + MAGNESIUM, PLASMA (04/22/2019 11:47 PM PDT) + +-------+ + + + | Component | Value | Ref Range | Performed | Pathologist | | | | | At | Signature | + +-------+ + + + | MAGNESIUM,P | 2.0 | 1.6 - 2.6 mg/dL | [facility] | | | [facility]AS[facility] | | | LABORATORY | | | [...] | + + + + + | [facility] | [address] | [place] [address] | | | SERVICES, CORE | [address] | | | + + + + + COMPLETE METABOLIC SET (NA,K,CL,CO2,BUN,CREAT,GLUC,CA,AST,ALT,BILI TOTAL,ALK PHOS,ALB,PROT TOTAL) (04/22/2019 11:47 PM PDT) + + + + + + | Component | Value | Ref Range | Performed | Pathologist | | | | | At | Signature | + + + + + + | GLUCOSE, | 71 | 70 - 99 mg/dL | [facility] [...] | | | LABORATORY | | | GABONESE | | | SERVICES, | | | | | | CORE | | + + + + + + | EGFR NON | >60 | >60 mL/min | [facility] | | | -DORY | | | LABORATORY | | | [...] + + + + | POTASSIUM, | 3.5 [...] + + + + | TOTAL | 5.9 [...] + + + + | AST(SGOT) | 23 | <=41 U/L | [facility] | | [...] + + + | ANION GAP | 5 | 4 - 11 mmol/L | [facility] [...] | + + + + + | [facility] | [address] | [place] [address] | | | SERVICES, LUZMARIA | [address] | | | + + + + + HUMAN HERPES VIRUS 6 PCR (PLASMA OR CSF) (04/22/2019 11:47 PM PDT) + + + + + [...] - [facility] | | | | [facility] [place] [address] | | | | | | [email or web address]. 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 (04/22/2019 8:37 PM PDT) + + + | Narrative | Performed At | + + + | Aniya Banks MD 08/03/2019 3:04 PM Hematopoietic | | | Progenitor Cell Infusion Record Name: Stephenie Camarillo MRN: | | | [id number] Indication for Procedure: Reconstitution of hematopoiesis | | | Transplant Physician: Sejal DeL a Torre DO Person Infusing | | | Product: Aniya Banks MD Recipient and unit identity were | | | confirmed prior to initiation of the infusion: Yes I verify I have | | | reviewed the documentation from the Cell Processing Lab which | | | included ABO typing and antibody screen, ABO compatibility, and | | | processing: Yes Bag identification was crosschecked per [facility] | | | policy: Yes Product number was confirmed: Yes Product | | | integrity was inspected: Yes The product characteristics, cell | | | dose and volume are described in the Cell Processing Lab | | | documentation Pre - Procedure Vital Signs: BP 124/64 (BP Location: | | | Left upper arm, Patient Position: Lying on back) | Pulse 108 | | | | Temp 36.7 C (98.1 F) (Oral) | Resp 16 | Ht 1.591 m (5' | | | 2.64") | Wt 67.7 kg (149 lb 4 oz) | SpO2 98% | BMI 26.75 | | | kg/m | BSA 1.73 m Pain Score: | Pain Location: | Pain | | | Educated? | Please refer to Vitals Flowsheet (88) for vitals | | | recorded during Infusion: Donor Source: cord blood, two units | | | Date: 04/22/2019 Time: Donor MRN/NMDP ID: [id number] -- 12:03 | | | Donor MRN/NMDP ID: [id number] -- 15:26 Dose: Donor MRN/NMDP | | | ID: [id number] - 0/07 x 10^6 CD34+ cells / Kg Donor MRN/NMDP | | | ID: [id number] - 0.10 x 10^6 CD34+ cells / Kg Patient was | | | premedicated with Tylenol, Benadryl and Hydrocortisone. Patient | | | received an infusion of the above product intravenously through a | | | central catheter. Vital signs were monitored throughout the | | | procedure. Observation* Allergic Reaction: No Rigors / | | | Chills: No Fever: No Cardiac Arrhythmia: No Other Cardiac: | | | Yes:Toxicity Grade: None Blood Pressure Change: Yes, increase in SBP | | | to ~180 after first cord blood unit, treated with hydralizine x 1 | | | prior to / during infusion of second unit - Grade 2 Hypoxia: No | | | Cough: No Thrombosis / pulm. Embolism: No Other Pulmonary: No | | | Nausea: No Vomiting: No Pain: No Other( Hoca): No *If grade 3 or 4 | | | toxicity occurs, please call the [facility] Lab [phone] to initiate the | | | [facility] Adverse Reaction Report process. Aniya Banks MD | | + + + PROCEDURE NOTE (04/22/2019 5:39 PM PDT) + + + | Narrative | Performed At | + + + | Anaid Morales 04/22/2019 5:41 PM Cellular Therapy | | | Laboratory - Cell Processing Name: Stephenie Camarillo MRN: | | | [id number] Donation Identification Number: [id number] Product | | | Source: HPC, Cord Blood Donor Name: [facility] Donor MRN/NMDP ID: | | | [id number] ABO/Rh: Donor: A pos; Recipient: O pos Antibody | | | Screen: Donor: N/A; Recipient: Negative ABO Compatible: Major | | | (recipient antidonor) Processing: Product was thawed and washed | | | prior to infusion Bag Identification Cross Checked: Yes Donation | | | Identification Number Confirmed: Yes Product Integrity Inspected: | | | Yes Product Characteristics: Volume (mL): 106 TNC dose | | | (x10^7/kg): 2.03 CD34 dose (x10^6/kg): 0.10 CD3 dose (x10^7/kg): | | | 0.56 RBC (mL): 3 Donor CMV Status: Negative Recipient CMV | | | Status: Negative [facility] MORALES Cellular Therapy [facility] | | + + + PROCEDURE NOTE (04/22/2019 4:59 PM PDT) + + + | Narrative | Performed At | + + + | Anaid Morales 04/22/2019 5:01 PM Cellular Therapy | | | Laboratory - Cell Processing Name: Stephenie Camarillo MRN: | | | [id number] Donation Identification Number: [id number] Product | | | Source: HPC, Cord Blood Donor Name: [facility] Donor MRN/NMDP ID: | | | [id number] ABO/Rh: Donor: B pos; Recipient: O pos Antibody | | | Screen: Donor: N/A; Recipient: negative ABO Compatible: Major | | | (recipient antidonor) Processing: Product was thawed and washed | | | prior to infusion Bag Identification Cross Checked: Yes Donation | | | Identification Number Confirmed: Yes Product Integrity Inspected: | | | Yes Product Characteristics: Volume (mL): 109 TNC dose | | | (x10^7/kg): 2.55 CD34 dose (x10^6/kg): 0.07 CD3 dose (x10^7/kg): | | | 0.42 RBC (mL): 6 Donor CMV Status: Negative Recipient CMV | | | Status: Negative A[facility]ID CHRISTIANO Cellular Therapy Laboratory | | + + + PRODUCT CELL COUNT (04/22/2019 1:00 PM PDT) + +-------+ + + + | Component | Value | Ref Range | Performed | Pathologist | | | | | At | Signature | + +-------+ + + + | PRODUCT | | | [facility] | | | IDENTIFIER | | | LABORATORY | | | | | | SERVICES, | | | | | | CORE | | + +-------+ + + + | PRODUCT WBC | <0.1 | K/cu mm | [facility] | | | | | | LABORATORY | | | | | | SERVICES, | | | | | | CORE | | + +-------+ + + + | PRODUCT RBC | <0.20 | M/cu mm | [facility] | | | | | | LABORATORY | | | | | | SERVICES, | | | | | | CORE | | + +-------+ + + + | PRODUCT HGB | <0.6 | g/dL | [facility] | | | | | | LABORATORY | | | | | | SERVICES, | | | | | | CORE | | + +-------+ + + + | PRODUCT HCT | <1.0 | % | [facility] | | | | | | LABORATORY | | | | | | SERVICES, | | | | | | CORE | | + +-------+ + + + | PRODUCT PLT | 11 | K/cu mm | [facility] | | | | | | LABORATORY | | | | | | SERVICES, | | | | | | CORE | | + +-------+ + + + + + | Specimen | + + | Stem cells - Blood | | (substance) | + + + + + + + | Performing | Address | City/State/Zipcode | Phone Number | | Organization | | | | + + + + + | [facility] | [address] | [place] [address] | | | SERVICES, CORE | [address] | | | + + + + + CULTURE, BLOOD BACTI & YEAST JEFF (04/22/2019 12:30 PM PDT) + + + + + [...] Specimen | + + | Blood - Umbilical | | cord structure (body | | structure) | + + + + + + + | Performing | Address | City/State/Zipcode | Phone Number | | Organization | | | | + + + + + | [facility] | [address] | [place] [address] | | | SERVICES, CORE | [address] | | | + + + + + PRODUCT CD34 STEM CELLS (04/22/2019 12:30 PM PDT) + + + + + + | Component | Value | Ref Range | Performed | Pathologist | | | | | At | Signature | + + + + + + | PRODUCT | [id number] | | [facility] | | | IDENTIFIER | | | LABORATORY | | | | | | SERVICES, | | | | | | SPECIAL IMM | | | | | | + COAG | | + + + + + + | PRODUCT | 1.15 | % | [facility] | | | CD34 | | | LABORATORY | | | PERCENT | | | SERVICES, | | | | | | SPECIAL IMM | | | | | | + COAG | | + + + + + + | PRODUCT | 0.066 | X10*6 / mL | [facility] | | | CD34 | | | LABORATORY | | | POSITIVE | | | SERVICES, | | | CELLS | | | SPECIAL IMM | | | | | | + COAG | | + + + + + + + + | Specimen | + + | Stem cells | + + + + + | Narrative | Performed At | + + + | Analyte specific reagents are used in many laboratory tests | [facility] | | necessary for standard medical care. This test was developed and its | LABORATORY | | performance characteristics determined by [employer]. It has | SERVICES, | | not been cleared or approved by the US Food and Drug Administration | SPECIAL IMM + | | (FDA). FDA does not require this test to go through premarket FDA | [employer] | | review. This test is used for clinical purposes. It should not be | | | regarded as investigational or for research. This laboratory is | | | certified under the Clinical Laboratory Improvement Amendments (CLIA) | | | as qualified to perform high complexity clinical laboratory testing. | | + + + + + + + + | Performing | Address | City/State/Zipcode | Phone Number | | Organization | | | | + + + + + | [facility] | [address] | [place] [address] | | | SERVICES, SPECIAL | [address] | | | | IMM + COAG | | | | + + + + + PRODUCT ADD'L MARKERS (04/22/2019 12:30 PM PDT) + + + + + + | Component | Value | Ref Range | Performed | Pathologist | | | | | At | Signature | + + + + + + | PRODUCT | [id number] | | [facility] | | | IDENTIFIER | | | LABORATORY | | | | | | SERVICES, | | | | | | SPECIAL IMM | | | | | | + COAG | | + + + + + + | PRODUCT | 27.7 | % | [facility] | | | CD3% OF | | | LABORATORY | | | TOTAL NUCL | | | SERVICES, | | | CELLS | | | SPECIAL IMM | | | | | | + COAG | | + + + + + + | PRODUCT | 19.3 | % | [facility] | | | CD4% OF | | | LABORATORY | | | TOTAL NUCL | | | SERVICES, | | | CELLS | | | SPECIAL IMM | | | | | | + COAG | | + + + + + + | PRODUCT | 7.7 | % | [facility] | | | CD8% OF | | | LABORATORY | | | TOTAL NUCL | | | SERVICES, | | | CELLS | | | SPECIAL IMM | | | | | | + COAG | | + + + + + + | PRODUCT | 9.9 | % | [facility] | | | CD19% | | | LABORATORY | | | OFTOTAL | | | SERVICES, | | | NUCL CELLS | | | SPECIAL IMM | | | | | | + COAG | | + + + + + + | PRODUCT NK% | 3.9 | % | [facility] | | | OF TOTAL | | | LABORATORY | | | NUCL CELLS | | | SERVICES, | | | | | | SPECIAL IMM | | | | | | + COAG | | + + + + + + + + | Specimen | + + | Stem cells | + + + + + | Narrative | Performed At | + + + | Analyte specific reagents are used in many laboratory tests | [facility] | | necessary for standard medical care. This test was developed and its | LABORATORY | | performance characteristics determined by [facility] [employer]. It has | SERVICES, | | not been cleared or approved by the [place] Food and Drug Administration | SPECIAL IMM + | | (FDA). FDA does not require this test to go through premarket FDA | COAG | | review. This test is used for clinical purposes. It should not be | | | regarded as investigational or for research. This laboratory is | | | certified under the Clinical Laboratory Improvement Amendments (CLIA) | | | as qualified to perform high complexity clinical laboratory testing. | | + + + + + + + + | Performing | Address | City/State/[facility] | Phone Number | | Organization | | | | + + + + + | [facility] | [address] | [place] [address] | | | SERVICES, SPECIAL | [address] | | | | IMM + COAG | | | | + + + + + PRODUCT MANUAL DIFF (04/22/2019 12:30 PM PDT) + + + + + + | Component | Value | Ref Range | Performed | Pathologist | | | | | At | Signature | + + + + + + | PRODUCT | [id number] | | [facility] | | | IDENTIFIER | | | LABORATORY | | | | | | SERVICES, | | | | | | CORE | | + + + + + + | TOTAL | 200 | | [facility] | | | COUNTED,BP | | | LABORATORY | | | | | | SERVICES, | | | | | | CORE | | + + + + + + | PRODUCT | 72 | % | [facility] | | | MONONUCLEAR | | | LABORATORY | | | | | | SERVICES, | | | | | | CORE | | + + + + + + | PRODUCT | 28 | % | [facility] | | | OTHER | | | LABORATORY | | | | | | SERVICES, | | | | | | CORE | | + + + + + + + + | Specimen | + + | Stem cells - Blood | | (substance) | + + + + + | Narrative | Performed At | + + + | Cells appear as dark pyknotic dots with little if any features to | [facility] | | distinguish the cell lines. These numbers are approximate given the | LABORATORY | | specimen | SERVICES, CORE | + + + + + + + + | Performing | Address | City/State/Zipcode | Phone Number | | Organization | | | | + + + + + | [facility] | [address] | [place] [address] | | | SERVICES, CORE | [address] | | | + + + + + PRODUCT CELL COUNT (04/22/2019 12:30 PM PDT) + + + + + + | Component | Value | Ref Range | Performed | Pathologist | | | | | At | Signature | + + + + + + | PRODUCT | [id number] | | [facility] | | | IDENTIFIER | | | LABORATORY | | | | | | SERVICES, | | | | | | CORE | | + + + + + + | PRODUCT WBC | 12.8 | K/cu mm | [facility] | | | | | | LABORATORY | | | | | | SERVICES, | | | | | | CORE | | + + + + + + | PRODUCT RBC | <0.20 | M/cu mm | [facility] | | | | | | LABORATORY | | | | | | SERVICES, | | | | | | CORE | | + + + + + + | PRODUCT HGB | <0.6 | g/dL | [facility] | | | | | | LABORATORY | | | | | | SERVICES, | | | | | | CORE | | + + + + + + | PRODUCT HCT | 2.6 | % | [facility] | | | | | | LABORATORY | | | | | | SERVICES, | | | | | | CORE | | + + + + + + | PRODUCT PLT | 53 | K/cu mm | [facility] | | | | | | LABORATORY | | | | | | SERVICES, | | | | | | CORE | | + + + + + + + + | Specimen | + + | Stem cells - Blood | | (substance) | + + + + + + + | Performing | Address | City/State/Zipcode | Phone Number | | Organization | | | | + + + + + | [facility] | [address] | [place] [address] | | | SERVICES, CORE | [address] | | | + + + + + PRODUCT CELL COUNT (04/22/2019 10:30 AM PDT) + +-------+ + + + | Component | Value | Ref Range | Performed | Pathologist | | | | | At | Signature | + +-------+ + + + | PRODUCT | | | [facility] | | | IDENTIFIER | | | LABORATORY | | | | | | SERVICES, | | | | | | CORE | | + +-------+ + + + | PRODUCT WBC | <0.1 | K/cu mm | [facility] | | | | | | LABORATORY | | | | | | SERVICES, | | | | | | CORE | | + +-------+ + + + | PRODUCT RBC | <0.20 | M/cu mm | [facility] | | | | | | LABORATORY | | | | | | SERVICES, | | | | | | CORE | | + +-------+ + + + | PRODUCT HGB | 0.9 | g/dL | [facility] | | | | | | LABORATORY | | | | | | SERVICES, | | | | | | CORE | | + +-------+ + + + | PRODUCT HCT | 1.3 | % | [facility] | | | | | | LABORATORY | | | | | | SERVICES, | | | | | | CORE | | + +-------+ + + + | PRODUCT PLT | 33 | K/cu mm | [facility] | | | | | | LABORATORY | | | | | | SERVICES, | | | | | | CORE | | + +-------+ + + + + + | Specimen | + + | Stem cells - Blood | | (substance) | + + + + + + + | Performing | Address | City/State/Zipcode | Phone Number | | Organization | | | | + + + + + | [facility] | [address] | [place] [address] | | | SERVICES, CORE | [address] | | | + + + + + CULTURE, BLOOD BACTI & YEAST LUPISSU (04/22/2019 10:00 AM PDT) + + + + + [...] Specimen | + + | Blood - Umbilical | | cord structure (body | | structure) | + + + + + + + | Performing | Address | City/State/Zipcode | Phone Number | | Organization | | | | + + + + + | [facility] | [address] | [place] [address] | | | MENG, LUZMARIA | [address] | | | + + + + + PRODUCT CD34 STEM CELLS (04/22/2019 10:00 AM PDT) + + + + + + | Component | Value | Ref Range | Performed | Pathologist | | | | | At | Signature | + + + + + + | PRODUCT | [id number] | | [facility] | | | IDENTIFIER | | | LABORATORY | | | | | | SERVICES, | | | | | | SPECIAL IMM | | | | | | + COAG | | + + + + + + | PRODUCT | 0.71 | % | [facility] | | | CD34 | | | LABORATORY | | | PERCENT | | | SERVICES, | | | | | | SPECIAL IMM | | | | | | + COAG | | + + + + + + | PRODUCT | 0.046 | X10*6 / mL | [facility] | | | CD34 | | | LABORATORY | | | POSITIVE | | | SERVICES, | | | CELLS | | | SPECIAL IMM | | | | | | + COAG | | + + + + + + + + | Specimen | + + | Stem cells | + + + + + | Narrative | Performed At | + + + | Analyte specific reagents are used in many laboratory tests | [facility] | | necessary for standard medical care. This test was developed and its | LABORATORY | | performance characteristics determined by [facility]. It has | SERVICES, | | not been cleared or approved by the US Food and Drug Administration | SPECIAL IMM + | | (FDA). FDA does not require this test to go through premarket FDA | [facility] | | review. This test is used for clinical purposes. It should not be | | | regarded as investigational or for research. This laboratory is | | | certified under the Clinical Laboratory Improvement Amendments (CLIA) | | | as qualified to perform high complexity clinical laboratory testing. | | + + + + + + + + | Performing | Address | City/State/Zipcode | Phone Number | | Organization | | | | + + + + + | [facility] | [address] | [place] [address] | | | SERVICES, SPECIAL | [address] | | | | IMM + COAG | | | | + + + + + PRODUCT ADD'L MARKERS (04/22/2019 10:00 AM PDT) + + + + + + | Component | Value | Ref Range | Performed | Pathologist | | | | | At | Signature | + + + + + + | PRODUCT | [id number] | | [facility] | | | IDENTIFIER | | | LABORATORY | | | | | | SERVICES, | | | | | | SPECIAL IMM | | | | | | + COAG | | + + + + + + | PRODUCT | 16.6 | % | [facility] | | | CD3% OF | | | LABORATORY | | | TOTAL NUCL | | | SERVICES, | | | CELLS | | | SPECIAL IMM | | | | | | + COAG | | + + + + + + | PRODUCT | 10.9 | % | [facility] | | | CD4% OF | | | LABORATORY | | | TOTAL NUCL | | | SERVICES, | | | CELLS | | | SPECIAL IMM | | | | | | + COAG | | + + + + + + | PRODUCT | 5.3 | % | [facility] | | | CD8% OF | | | LABORATORY | | | TOTAL NUCL | | | SERVICES, | | | CELLS | | | SPECIAL IMM | | | | | | + COAG | | + + + + + + | PRODUCT | 8.4 | % | [facility] | | | CD19% | | | LABORATORY | | | OFTOTAL | | | SERVICES, | | | NUCL CELLS | | | SPECIAL IMM | | | | | | + COAG | | + + + + + + | PRODUCT NK% | 3.4 | % | [facility] | | | OF TOTAL | | | LABORATORY | | | NUCL CELLS | | | SERVICES, | | | | | | SPECIAL IMM | | | | | | + COAG | | + + + + + + + + | Specimen | + + | Stem cells | + + + + + | Narrative | Performed At | + + + | Analyte specific reagents are used in many laboratory tests | [facility] | | necessary for standard medical care. This test was developed and its | LABORATORY | | performance characteristics determined by [facility]. It has | SERVICES, | | not been cleared or approved by the US Food and Drug Administration | SPECIAL IMM + | | (FDA). FDA does not require this test to go through premarket FDA | [facility] | | review. This test is used for clinical purposes. It should not be | | | regarded as investigational or for research. This laboratory is | | | certified under the Clinical Laboratory Improvement Amendments (CLIA) | | | as qualified to perform high complexity clinical laboratory testing. | | + + + + + + + + | Performing | Address | City/State/[facility] | Phone Number | | Organization | | | | + + + + + | [facility] | [address] | [place] [address] | | | SERVICES, SPECIAL | [address] | | | | IMM + COAG | | | | + + + + + PRODUCT MANUAL DIFF (04/22/2019 10:00 AM PDT) + + + + + + | Component | Value | Ref Range | Performed | Pathologist | | | | | At | Signature | + + + + + + | PRODUCT | [id number] | | [facility] | | | IDENTIFIER | | | LABORATORY | | | | | | SERVICES, | | | | | | CORE | | + + + + + + | TOTAL | 200 | | [facility] | | | COUNTED,BP | | | LABORATORY | | | | | | SERVICES, | | | | | | CORE | | + + + + + + | PRODUCT | 29 | % | [facility] | | | MONONUCLEAR | | | LABORATORY | | | | | | SERVICES, | | | | | | CORE | | + + + + + + | PRODUCT | 71 | % | [facility] | | | OTHER | | | LABORATORY | | | | | | SERVICES, | | | | | | CORE | | + + + + + + + + | Specimen | + + | Stem cells - Blood | | (substance) | + + + + + + + | Performing | Address | City/State/Zipcode | Phone Number | | Organization | | | | + + + + + | [facility] | [address] | [place] [address] | | | SERVICES, CORE | [address] | | | + + + + + PRODUCT CELL COUNT (04/22/2019 10:00 AM PDT) + + + + + + | Component | Value | Ref Range | Performed | Pathologist | | | | | At | Signature | + + + + + + | PRODUCT | [id number] | | [facility] | | | IDENTIFIER | | | LABORATORY | | | | | | SERVICES, | | | | | | CORE | | + + + + + + | PRODUCT WBC | 15.7 | K/cu mm | [facility] | | | | | | LABORATORY | | | | | | SERVICES, | | | | | | CORE | | + + + + + + | PRODUCT RBC | 0.47 | M/cu mm | [facility] | | | | | | LABORATORY | | | | | | SERVICES, | | | | | | CORE | | + + + + + + | PRODUCT HGB | 1.4 | g/dL | [facility] | | | | | | LABORATORY | | | | | | SERVICES, | | | | | | CORE | | + + + + + + | PRODUCT HCT | 5.9 | % | [facility] | | | | | | LABORATORY | | | | | | SERVICES, | | | | | | CORE | | + + + + + + | PRODUCT PLT | 147 | K/cu mm | [facility] | | | | | | LABORATORY | | | | | | SERVICES, | | | | | | CORE | | + + + + + + + + | Specimen | + + | Stem cells - Blood | | (substance) | + + + + + + + | Performing | Address | City/State/Zipcode | Phone Number | | Organization | | | | + + + + + | [facility] | [address] | [place] [address] | | | SERVICES, CORE | [address] | | | + + + + + TACROLIMUS, WHOLE BLOOD (04/22/2019 8:50 AM PDT) + + + + + + | Component | Value | Ref Range | Performed | Pathologist | | | | | At | Signature | + + + + + + | TACROLIMUS | 4.6 (L)Comment: DRAW | 5.0 - 15.0 | [facility] | | | ([phone]) | tacro level prior to | ng/mL | LABORATORY | | | | giving 0900 dose | | SERVICES, | | | | | | SPECIAL IMM | | | | | | + COAG | | + + + + + + + + | Specimen | + + | Blood - Blood | | (substance) | + + + + + | Narrative | Performed At | + + + | Test performed by immunoassay using [employer] i2000. . | [facility] | | [...] | + + + + + | [facility] | [address] | [place] [address] | | | SERVICES, SPECIAL | [address] | | | | IMM + [place] | | | | + + + + + RBC MORPHOLOGY (04/22/2019 12:11 AM PDT) + + | Specimen | + + | Blood - Blood | | (substance) | + + + + + + + | Performing | Address | City/State/Zipcode | Phone Number | | Organization | | | | + + + + + | [facility] | [address] | [place] [address] | | | SERVICES, CORE | [address] | | | + + + + + MANUAL DIFFERENTIAL (04/22/2019 12:11 AM PDT) + + + + + + | Component | Value | Ref Range | Performed | Pathologist | | | | | At | Signature | + + + + + + | NEUTROPHIL | 96.5 (H) | 50.0 - 70.0 % | [facility] | | | % | | | LABORATORY | | | | | | SERVICES, | | | | | | CORE | | + + + + + + | LYMPHOCYTE | 1.8 (L) | 18.0 - 42.0 % | [facility] | | | % | | | LABORATORY | | | | | | SERVICES, | | | | | | CORE | | + + + + + + | MONOCYTE % | 0.0 (L) | 3.5 - 9.0 % | [facility] | | | | | | LABORATORY | | | | | | SERVICES, | | | | | | CORE | | + + + + + + | EOSINOPHIL | 1.7 | 1.0 - 3.0 % [...] + + + + | IG% | 0.0 | 0.0 - 1.0 % | [facility] | | | | | | LABORATORY | | | | | | SERVICES, | | | | | | CORE | | + + + + + + | NEUTROPHIL | 0.88 (L) | 1.80 - 7.70 | [facility] | | | # | | K/cu mm | LABORATORY | | | | | | SERVICES, | | | | | | CORE | | + + + + + + | LYMPHOCYTE | 0.02 (L) | 1.00 - 4.80 | [facility] | | | # | | K/cu mm | LABORATORY | | | | | | SERVICES, | | | | | | CORE | | + + + + + + | MONOCYTE # | 0.00 (L) | 0.10 - 0.90 | [facility] | | | | | K/cu mm | LABORATORY | | | | | | SERVICES, | | | | | | CORE | | + + + + + + | EOSINOPHIL | 0.02 | 0.00 - 0.50 | [...] | + + + + + | [facility] | [address] [facility] | [place] [address] | | | SERVICES, CORE | [address] | | | + + + + + CBC AND AUTO DIFF (04/22/2019 12:11 AM PDT) + + + + + + | Component | Value | Ref Range | Performed | Pathologist | | | | | At | Signature | + + + + + + | WHITE CELL | 0.91 (L) | 3.50 - 10.80 | [facility] | | | COUNT | | K/cu mm | LABORATORY | | | | | | SERVICES, | | | | | | CORE | | + + + + + + | RED CELL | 3.92 (L) | 4.00 - 5.20 | [facility] | | | COUNT | | M/cu mm | LABORATORY | | | | | | SERVICES, | | | | | | CORE | | + + + + + + | HEMOGLOBIN | 10.9 (L) | 12.0 - 16.0 | [facility] | | | | | g/dL | LABORATORY | | | | | | SERVICES, | | | | | | CORE | | + + + + + + | HEMATOCRIT | 34.5 (L) | 36.0 - 46.0 % | [...] + + + + | MCHC | 31.6 (L) | 32.0 - 36.0 | [facility] | | | | | g/dL | LABORATORY | | | | | | SERVICES, | | | | | | CORE | | + + + + + + | RDW SD | 43.2 | 35.1 - 46.3 fL | [facility] [...] + + + + | MPV | 11.6 | 9.7 - 12.3 fL | [facility] [...] + | [facility] | [address] | [place] [address] | | | SERVICES, CORE | [address] | | | + + + + + PHOSPHORUS, PLASMA (04/22/2019 12:11 AM PDT) + +-------+ + + + [...] | + + + + + | [facility] | [address] | [place] [address] | | | SERVICES, CORE | [address] | | | + + + + + MAGNESIUM, PLASMA (04/22/2019 12:11 AM PDT) + +-------+ + + + | Component | Value | Ref Range | Performed | Pathologist | | | | | At | Signature | + +-------+ + + + | MAGNESIUM,P | 2.1 | 1.6 - 2.6 mg/dL | [facility] [...] | + + + + + | [facility] | [address] [facility] | [place] [address] | | | SERVICES, CORE | [address] | | | + + + + + COMPLETE METABOLIC SET (NA,K,CL,CO2,BUN,CREAT,GLUC,CA,AST,ALT,BILI TOTAL,ALK PHOS,ALB,PROT TOTAL) (04/22/2019 12:11 AM PDT) + + + + + + | Component | Value | Ref Range | Performed | Pathologist | | | | | At | Signature | + + + + + + | GLUCOSE, | 85 [...] + + + + | CREATININE | 0.43 (L) | 0.60 - 1.10 | [facility] | | | PLASMA | | mg/dL | LABORATORY | | | (LAB) | | | SERVICES, | | | | | | CORE | | + + + + + + | EGFR | >60 | >60 mL/min | [facility] | | | - | | | LABORATORY | | | GABONESE | | | SERVICES, | | | | | | CORE | | + + + + + + | EGFR NON | >60 | >60 mL/min | [facility] | | | -DORY | | | LABORATORY | | | [...] + + + + | POTASSIUM, | 3.5 [...] + + + + | TOTAL | 6.0 [...] + + + | ALK PHOS | 90 | 42 - 98 U/L | [facility] [...] | + + + + + | [facility] | [address] | [place] [address] | | | SERVICES, CORE | [address] | | | + + + + + RBC MORPHOLOGY (04/21/2019 4:55 PM PDT) + +---------+ + + + | Component | Value | Ref Range | Performed | Pathologist | | | | | At | Signature | + +---------+ + + + | HYPERSEGMEN | Present | | [facility] | | | MARTHA POLYS | | | LABORATORY | | | | | | SERVICES, | | | | | | CORE | | + +---------+ + + + + + | Specimen | + + | Blood - Blood | | (substance) | + + + + + | Narrative | Performed At | + + + | Include differential if WBC greater than or equal to 0.5 | [facility] | | | LABORATORY | | | SERVICES, CORE | + + + + + + + + | Performing | Address | City/State/Zipcode | Phone Number | | Organization | | | | + + + + + | [facility] | [address] [facility] | [place] [address] | | | SERVICES, CORE | [address] | | | + + + + + MANUAL DIFFERENTIAL (04/21/2019 4:55 PM PDT) + + + + + + | Component | Value | Ref Range | Performed | Pathologist | | | | | At | Signature | + + + + + + | NEUTROPHIL | 99.1 (H) | 50.0 - 70.0 % | [facility] | | | % | | | LABORATORY | | | | | | SERVICES, | | | | | | CORE | | + + + + + + | LYMPHOCYTE | 0.9 (L) | 18.0 - 42.0 % | [facility] | | | % | | | LABORATORY | | | | | | SERVICES, | | | | | | CORE | | + + + + + + | MONOCYTE % | 0.0 (L) | 3.5 - 9.0 % | [facility] | | | | | | LABORATORY | | | | | | SERVICES, | | | | | | CORE | | + + + + + + | EOSINOPHIL | 0.0 (L) | 1.0 - 3.0 [...] + + + + | IG% | 0.0 | 0.0 - 1.0 % | [facility] | | | | | | LABORATORY | | | | | | SERVICES, | | | | | | CORE | | + + + + + + | NEUTROPHIL | 1.64 (L) | 1.80 - 7.70 | [facility] | | | # | | K/cu mm | LABORATORY | | | | | | SERVICES, | | | | | | CORE | | + + + + + + | LYMPHOCYTE | 0.01 (L) | 1.00 - 4.80 | [facility] | | | # | | K/cu mm | LABORATORY | | | | | | SERVICES, | | | | | | CORE | | + + + + + + | MONOCYTE # | 0.00 (L) | 0.10 - 0.90 | [facility] | | | | | K/cu mm | LABORATORY | | | | | | SERVICES, | | | | | | CORE | | + + + + + + | EOSINOPHIL | 0.00 | 0.00 - 0.50 | [...] Performed At | + + + | Include differential if WBC greater than or equal to 0.5 | [facility] | | Increased immature granulocytes (IG) define a left shift. Immature | LABORATORY | | granulocytes (IG) are an automated count of metamyelocytes, myelocytes | SERVICES, CORE | | and promyelocytes. Bands are not included in the IG count. Bands are | | | included in the neutrophil count. | | + + + + + + + + | Performing | Address | City/State/Zipcode | Phone Number | | Organization | | | | + + + + + | [facility] | [address] | [place] [address] | | | SERVICES, CORE | [address] | | | + + + + + CBC AND AUTO DIFF (04/21/2019 4:55 PM PDT) + + + + + + | Component | Value | Ref Range | Performed | Pathologist | | | | | At | Signature | + + + + + + | WHITE CELL | 1.65 (L) | 3.50 - 10.80 | [facility] | | | COUNT | | K/cu mm | LABORATORY | | | | | | SERVICES, | | | | | | CORE | | + + + + + + | RED CELL | 4.00 | 4.00 - 5.20 | [facility] | | | COUNT | | M/cu mm | LABORATORY | | | | | | SERVICES, | | | | | | CORE | | + + + + + + | HEMOGLOBIN | 11.3 (L) | 12.0 - 16.0 | [facility] | | | | | g/dL | LABORATORY | | | | | | SERVICES, | | | | | | CORE | | + + + + + + | HEMATOCRIT | 35.0 (L) | 36.0 - 46.0 % | [facility] | | | | | | LABORATORY | | | | | | SERVICES, | | | | | | CORE | | + + + + + + | MCV | 87.5 | 80.0 - 100.0 fL | [facility] [...] + + + | RDW SD | 42.8 | 35.1 - 46.3 fL | [facility] | | | | | | LABORATORY | | | | | | SERVICES, | | | | | | CORE | | + + + + + + | PLATELET | 168Comment: Macro | 150 - 400 K/cu | [facility] | | | COUNT | platelets present. | mm | LABORATORY | | | | | | SERVICES, | | | | | | CORE | | + + + + + + | MPV | 11.3 | 9.7 - 12.3 fL | [facility] [...] Performed At | + + + | Include differential if WBC greater than or equal to 0.5 Include | [facility] | | differential if WBC greater than or equal to 0.5 Include differential | LABORATORY | | if WBC greater than or equal to 0.5 Include differential if WBC | MENG, CORE | | greater than or equal to 0.5 | | + + + + + + + + | Performing | Address | City/State/Zipcode | Phone Number | | Organization | | | | + + + + + | [facility] | [address] | [place] [address] | | | LUZMARIA FAN | [address] | | | + + + + + RBC MORPHOLOGY (04/21/2019 12:22 AM PDT) + + | Specimen | + + | Blood - Blood | | (substance) | + + + + + + + | Performing | Address | City/State/Zipcode | Phone Number | | Organization | | | | + + + + + | [facility] | [address] | [place] [address] | | | SERVICES, CORE | [address] | | | + + + + + CBC AND AUTO DIFF (04/21/2019 12:22 AM PDT) + + + + + + | Component | Value | Ref Range | Performed | Pathologist | | | | | At | Signature | + + + + + + | WHITE CELL | 2.14 (L) | 3.50 - 10.80 | [facility] [...] + + + | RDW SD | 44.1 | 35.1 - 46.3 fL | [facility] [...] + + + + | MPV | 11.7 | 9.7 - 12.3 fL | [facility] [...] + + + + | NEUTROPHIL | 94.0 (H) | 50.0 - 70.0 % | [facility] | | | % | | | LABORATORY | | | | | | SERVICES, | | | | | | CORE | | + + + + + + | LYMPHOCYTE | 0.9 (L) | 18.0 - 42.0 % | [facility] | | | % | | | LABORATORY | | | | | | SERVICES, | | | | | | CORE | | + + + + + + | MONOCYTE % | 0.0 (L) | 3.5 - 9.0 % | [...] + + + + | IG% | 3.7 (H) | 0.0 - 1.0 % | [facility] | | | | | | LABORATORY | | | | | | SERVICES, | | | | | | CORE | | + + + + + + | NEUTROPHIL | 2.01 | 1.80 - 7.70 | [facility] | | | # | | K/cu mm | LABORATORY | | | | | | SERVICES, | | | | | | CORE | | + + + + + + | LYMPHOCYTE | 0.02 (L) | 1.00 - 4.80 | [facility] | | | # | | K/cu mm | LABORATORY | | | | | | SERVICES, | | | | | | CORE | | + + + + + + | MONOCYTE # | 0.00 (L) | 0.10 - 0.90 | [facility] [...] | + + + + + | [facility] | [address] | [place] [address] | | | SERVICES, CORE | [address] | | | + + + + + ANTIBODY SCREEN (04/21/2019 12:22 AM PDT) + + + + + [...] [facility] | [address] | [place] [address] | | | SERVICES, | [address] | | | | TRANSFUSION MEDICINE | | | | + + + + + ABO & RH TYPE (04/21/2019 12:22 AM PDT) + + + + + [...] | + + + + + | [facility] | [address] | [place] [address] | | | SERVICES, | [address] | | | | TRANSFUSION MEDICINE | | | | + + + + + LDH TOTAL, PLASMA (04/21/2019 12:22 AM PDT) + +---------+ + + + | Component | Value | Ref Range | Performed | Pathologist | | | | | At | Signature | + +---------+ + + + | LD TOTAL, | 178 | <=250 U/L | [facility] | | [...] [facility] | [address] | [place] [address] | | | SERVICES, CORE | [address] | | | + + + + + PHOSPHORUS, PLASMA (04/21/2019 12:22 AM PDT) + +-------+ + + + | Component | Value | Ref Range | Performed | Pathologist | | | | | At | Signature | + +-------+ + + + | PHOSPHORUS, | 2.6 | 2.4 - 4.7 mg/dL | [facility] [...] | + + + + + | [facility] | [address] | [place] [address] | | | SERVICES, CORE | [address] | | | + + + + + MAGNESIUM, PLASMA (04/21/2019 12:22 AM PDT) + +-------+ + + + [...] | + + + + + | [facility] | [address] | [place] [address] | | | SERVICES, CORE | [address] | | | + + + + + COMPLETE METABOLIC SET (NA,K,CL,CO2,BUN,CREAT,GLUC,CA,AST,ALT,BILI TOTAL,ALK PHOS,ALB,PROT TOTAL) (04/21/2019 12:22 AM PDT) + + + + + + | Component | Value | Ref Range | Performed | Pathologist | | | | | At | Signature | + + + + + + | GLUCOSE, | 101 [...] + + + + | CREATININE | 0.49 (L) | 0.60 - 1.10 | [facility] | | | PLASMA | | mg/dL | LABORATORY | | | (LAB) | | | SERVICES, | | | | | | CORE | | + + + + + + | EGFR | >60 | >60 mL/min | [facility] | | | - | | | LABORATORY | | | GABONESE | | | SERVICES, | | | | | | CORE | | + + + + + + | EGFR NON | >60 | >60 mL/min | [facility] | | | -DORY | | | LABORATORY | | | [...] + + + + | POTASSIUM, | 3.5 [...] + + + + | CALCIUM, | 7.9 (L) | 8.6 - 10.2 | [facility] [...] + + + + | ALBUMIN, | 2.7 (L) | 3.5 - 4.7 g/dL | [facility] | | | PLASMA | | | LABORATORY | | | (LAB) | | | SERVICES, | | | | | | CORE | | + + + + + + | ALK PHOS | 82 | 42 - 98 U/L | [facility] [...] mL/min/1.73 sq m Chronic Kidney | SERVICES, [facility] [place] | | Disease <15 mL/min/1.73 sq m [...] | + + + + + | [facility] | [address] | [place] [address] | | | MENG, LUZMARIA | [address] | | | + + + + + URIC ACID, PLASMA (04/21/2019 12:22 AM PDT) + +---------+ + + + | Component | Value | Ref Range | Performed | Pathologist | | | | | At | Signature | + +---------+ + + + | URIC ACID, | 1.8 (L) | 2.5 - 6.2 mg/dL | [...] [facility] | [address] | [place] [address] | | | SERVICES, CORE | [address] | | | + + + + + RBC MORPHOLOGY (04/20/2019 3:40 PM PDT) + + + + + [...] Performed At | + + + | Include differential if WBC greater than or equal to 0.5 | [facility] | | | LABORATORY | | | SERVICES, CORE | + + + + + + + + | Performing | Address | City/State/Zipcode | Phone Number | | Organization | | | | + + + + + | [facility] | [address] | [place] [address] | | | SERVICES, CORE | [address] | | | + + + + + CBC AND AUTO DIFF (04/20/2019 3:40 PM PDT) + + + + + + | Component | Value | Ref Range | Performed | Pathologist | | | | | At | Signature | + + + + + + | WHITE CELL | 2.97 (L) | 3.50 - 10.80 | [facility] | | | COUNT | | K/cu mm | LABORATORY | | | | | | SERVICES, | | | | | | CORE | | + + + + + + | RED CELL | 3.75 (L) | 4.00 - 5.20 | [facility] [...] + + + + | HEMATOCRIT | 33.4 (L) | 36.0 - 46.0 % | [facility] | | | | | | LABORATORY | | | | | | SERVICES, | | | | | | CORE | | + + + + + + | MCV | 89.1 | 80.0 - 100.0 fL | [facility] [...] + + + | RDW SD | 44.7 | 35.1 - 46.3 fL | [facility] | | | | | | LABORATORY | | | | | | SERVICES, | | | | | | CORE | | + + + + + + | PLATELET | 178 | 150 - 400 K/cu | [facility] | | | COUNT | | mm | LABORATORY | | | | | | SERVICES, | | | | | | CORE | | + + + + + + | MPV | 11.9 | 9.7 - 12.3 fL | [facility] [...] + + + + | NEUTROPHIL | 97.0 (H) | 50.0 - 70.0 % | [facility] | | | % | | | LABORATORY | | | | | | SERVICES, | | | | | | CORE | | + + + + + + | LYMPHOCYTE | 0.3 (L) | 18.0 - 42.0 % | [facility] | | | % | | | LABORATORY | | | | | | SERVICES, | | | | | | CORE | | + + + + + + | MONOCYTE % | 0.0 (L) | 3.5 - 9.0 % | [...] + + + + | NEUTROPHIL | 2.88 | 1.80 - 7.70 | [facility] | | | # | | K/cu mm | LABORATORY | | | | | | SERVICES, | | | | | | CORE | | + + + + + + | LYMPHOCYTE | 0.01 (L) | 1.00 - 4.80 | [facility] | | | # | | K/cu mm | LABORATORY | | | | | | SERVICES, | | | | | | CORE | | + + + + + + | MONOCYTE # | 0.00 (L) | 0.10 - 0.90 | [facility] [...] Performed At | + + + | Include differential if WBC greater than or equal to 0.5 Include | [facility] | | differential if WBC greater than or equal to 0.5 Include differential | LABORATORY | | if WBC greater than or equal to 0.5 Increased immature granulocytes | SERVICES, CORE | | (IG) define a left shift. Immature granulocytes (IG) are an automated | | | count of metamyelocytes, myelocytes and promyelocytes. Bands are not | | | included in the IG count. Bands are included in the neutrophil count. | | | Include differential if WBC greater than or equal to 0.5 | | + + + + + + + + | Performing | Address | City/State/Zipcode | Phone Number | | Organization | | | | + + + + + | [facility] | [address] | [place] [address] | | | SERVICES, CORE | [address] | | | + + + + + CBC AND AUTO DIFF (04/20/2019 1:27 AM PDT) + + + + + + | Component | Value | Ref Range | Performed | Pathologist | | | | | At | Signature | + + + + + + | WHITE CELL | 3.29 (L) | 3.50 - 10.80 | [facility] [...] + + + + | MCV | 89.8 | 80.0 - 100.0 fL | [facility] | | | | | | LABORATORY | | | | | | SERVICES, | | | | | | CORE | | + + + + + + | MCHC | 31.6 (L) | 32.0 - 36.0 | [facility] | | | | | g/dL | LABORATORY | | | | | | SERVICES, | | | | | | CORE | | + + + + + + | RDW SD | 45.2 | 35.1 - 46.3 fL | [facility] | | | | | | LABORATORY | | | | | | SERVICES, | | | | | | CORE | | + + + + + + | PLATELET | 169 | 150 - 400 K/cu | [facility] [...] + + + + | NEUTROPHIL | 96.7 (H) | 50.0 - 70.0 % | [facility] | | | % | | | LABORATORY | | | | | | SERVICES, | | | | | | CORE | | + + + + + + | LYMPHOCYTE | 0.9 (L) | 18.0 - 42.0 % | [facility] | | | % | | | LABORATORY | | | | | | SERVICES, | | | | | | CORE | | + + + + + + | MONOCYTE % | 0.3 (L) | 3.5 - 9.0 % | [facility] | | | | | | LABORATORY | | | | | | SERVICES, | | | | | | CORE | | + + + + + + | EOS % | 1.2 | 1.0 - 3.0 % | [facility] [...] + + + + | NEUTROPHIL | 3.18 | 1.80 - 7.70 | [facility] | | | # | | K/cu mm | LABORATORY | | | | | | SERVICES, | | | | | | CORE | | + + + + + + | LYMPHOCYTE | 0.03 (L) | 1.00 - 4.80 | [facility] | | | # | | K/cu mm | LABORATORY | | | | | | SERVICES, | | | | | | CORE | | + + + + + + | MONOCYTE # | 0.01 (L) | 0.10 - 0.90 | [facility] [...] [facility] | [address] | [place] [address] | | | SERVICES, CORE | [address] | | | + + + + + PHOSPHORUS, PLASMA (04/20/2019 1:27 AM PDT) + +-------+ + + + [...] | + + + + + | [facility] | [address] [facility] [facility] [facility] | [place] [address] | | | SERVICES, CORE | [address] | | | + + + + + MAGNESIUM, PLASMA (04/20/2019 1:27 AM PDT) + +-------+ + + + [...] | + + + + + | [facility] | [address] | [place] [address] | | | SERVICES, CORE | [address] | | | + + + + + COMPLETE METABOLIC SET (NA,K,CL,CO2,BUN,CREAT,GLUC,CA,AST,ALT,BILI TOTAL,ALK PHOS,ALB,PROT TOTAL) (04/20/2019 1:27 AM PDT) + + + + + + | Component | Value | Ref Range | Performed | Pathologist | | | | | At | Signature | + + + + + + | GLUCOSE, | 84 [...] + + + + | CREATININE | 0.52 (L) | 0.60 - 1.10 | [facility] | | | PLASMA | | mg/dL | LABORATORY | | | (LAB) | | | SERVICES, | | | | | | CORE | | + + + + + + | EGFR | >60 | >60 mL/min | [facility] | | | - | | | LABORATORY | | | GABONESE | | | SERVICES, | | | | | | CORE | | + + + + + + | EGFR NON | >60 | >60 mL/min | [facility] | | | -DORY | | | LABORATORY | | | [...] + + + + | POTASSIUM, | 3.1 (L) | 3.4 - 5.0 | [facility] [...] + + + + | CALCIUM, | 7.9 (L) | 8.6 - 10.2 | [facility] [...] + + + + | TOTAL | 5.5 (L) | 6.4 - 8.2 g/dL | [facility] | | | PROTEIN, | | | LABORATORY | | | PLASMA | | | SERVICES, | | | (LAB) | | | CORE | | + + + + + + | ALBUMIN, | 2.7 (L) | 3.5 - 4.7 g/dL | [facility] | | | PLASMA | | | LABORATORY | | | (LAB) | | | SERVICES, | | | | | | CORE | | + + + + + + | ALK PHOS | 90 | 42 - 98 U/L | [facility] | | | | | | LABORATORY | | | | | | SERVICES, | | | | | | CORE | | + + + + + + | AST(SGOT) | 18 | <=41 U/L | [facility] | | | | | | LABORATORY | | | | | | SERVICES, | | | | | | CORE | | + + + + + + | ALT (SGPT) | 20 | <=60 U/L | [facility] | | [...] mL/min/1.73 sq m Chronic Kidney | SERVICES, [facility] | | Disease <15 mL/min/1.73 sq m [...] | + + + + + | [facility] | [address] [facility] [facility] | [place] [address] | | | MENG, LUZMARIA | [address] | | | + + + + + RBC MORPHOLOGY (04/19/2019 3:25 PM PDT) + + + + + [...] Performed At | + + + | Include differential if WBC greater than or equal to 0.5 | [facility] | | | LABORATORY | | | SERVICES, CORE | + + + + + + + + | Performing | Address | City/State/Zipcode | Phone Number | | Organization | | | | + + + + + | [facility] | [address] | [place] [address] | | | SERVICES, CORE | [address] | | | + + + + + CBC AND AUTO DIFF (04/19/2019 3:25 PM PDT) + + + + + + | Component | Value | Ref Range | Performed | Pathologist | | | | | At | Signature | + + + + + + | WHITE CELL | 4.84 | 3.50 - 10.80 | [facility] | | | COUNT | | K/cu mm | LABORATORY | | | | | | SERVICES, | | | | | | CORE | | + + + + + + | RED CELL | 3.83 (L) | 4.00 - 5.20 | [facility] | | | COUNT | | M/cu mm | LABORATORY | | | | | | SERVICES, | | | | | | CORE | | + + + + + + | HEMOGLOBIN | 10.9 (L) | 12.0 - 16.0 | [facility] | | | | | g/dL | LABORATORY | | | | | | SERVICES, | | | | | | CORE | | + + + + + + | HEMATOCRIT | 34.3 (L) | 36.0 - 46.0 % | [...] + + + | RDW SD | 45.2 | 35.1 - 46.3 fL | [facility] | | | | | | LABORATORY | | | | | | SERVICES, | | | | | | CORE | | + + + + + + | PLATELET | 192 | 150 - 400 K/cu | [facility] [...] + + + + | NEUTROPHIL | 98.8 (H) | 50.0 - 70.0 % | [facility] | | | % | | | LABORATORY | | | | | | SERVICES, | | | | | | CORE | | + + + + + + | LYMPHOCYTE | 0.4 (L) | 18.0 - 42.0 % | [facility] | | | % | | | LABORATORY | | | | | | SERVICES, | | | | | | CORE | | + + + + + + | MONOCYTE % | 0.0 (L) | 3.5 - 9.0 % | [...] + + + + | NEUTROPHIL | 4.78 | 1.80 - 7.70 | [facility] | | | # | | K/cu mm | LABORATORY | | | | | | SERVICES, | | | | | | CORE | | + + + + + + | LYMPHOCYTE | 0.02 (L) | 1.00 - 4.80 | [facility] | | | # | | K/cu mm | LABORATORY | | | | | | SERVICES, | | | | | | CORE | | + + + + + + | MONOCYTE # | 0.00 (L) | 0.10 - 0.90 | [facility] [...] Performed At | + + + | Include differential if WBC greater than or equal to 0.5 Include | [facility] | | differential if WBC greater than or equal to 0.5 Include differential | LABORATORY | | if WBC greater than or equal to 0.5 Increased immature granulocytes | SERVICES, CORE | | (IG) define a left shift. Immature granulocytes (IG) are an automated | | | count of metamyelocytes, myelocytes and promyelocytes. Bands are not | | | included in the IG count. Bands are included in the neutrophil count. | | | Include differential if WBC greater than or equal to 0.5 | | + + + + + + + + | Performing | Address | City/State/Zipcode | Phone Number | | Organization | | | | + + + + + | [facility] | [address] | [place] [address] | | | MENG, LUZMARIA | [address] | | | + + + + + POTASSIUM, PLASMA (04/19/2019 3:24 PM PDT) + +---------+ + + + | Component | Value | Ref Range | Performed | Pathologist | | | | | At | Signature | + +---------+ + + + | POTASSIUM, | 3.8 [...] [facility] | [address] | [place] [address] | | | SERVICES, CORE | [address] | | | + + + + + RBC MORPHOLOGY (04/19/2019 1:33 AM PDT) + + + + + [...] [facility] | [address] | [place] [address] | | | SERVICES, CORE | [address] | | | + + + + + CBC AND AUTO DIFF (04/19/2019 1:33 AM PDT) + + + + + + | Component | Value | Ref Range | Performed | Pathologist | | | | | At | Signature | + + + + + + | WHITE CELL | 5.36 | 3.50 - 10.80 | [facility] | | | COUNT | | K/cu mm | LABORATORY | | | | | | SERVICES, | | | | | | CORE | | + + + + + + | RED CELL | 3.53 (L) | 4.00 - 5.20 | [facility] [...] + + + + | HEMATOCRIT | 31.7 (L) | 36.0 - 46.0 % | [facility] | | | | | | LABORATORY | | | | | | SERVICES, | | | | | | CORE | | + + + + + + | MCV | 89.8 | 80.0 - 100.0 fL | [facility] [...] + + + | RDW SD | 45.8 | 35.1 - 46.3 fL | [facility] | | | | | | LABORATORY | | | | | | SERVICES, | | | | | | CORE | | + + + + + + | PLATELET | 159 | 150 - 400 K/cu | [facility] | | | COUNT | | mm | LABORATORY | | | | | | SERVICES, | | | | | | CORE | | + + + + + + | MPV | 12.2 | 9.7 - 12.3 fL | [facility] [...] + + + + | NEUTROPHIL | 97.9 (H) | 50.0 - 70.0 % | [facility] | | | % | | | LABORATORY | | | | | | SERVICES, | | | | | | CORE | | + + + + + + | LYMPHOCYTE | 1.1 (L) | 18.0 - 42.0 % | [facility] | | | % | | | LABORATORY | | | | | | SERVICES, | | | | | | CORE | | + + + + + + | MONOCYTE % | 0.2 (L) | 3.5 - 9.0 % | [...] + + + + | IG% | 0.4 | 0.0 - 1.0 % | [facility] | | | | | | LABORATORY | | | | | | SERVICES, | | | | | | CORE | | + + + + + + | NEUTROPHIL | 5.25 | 1.80 - 7.70 | [facility] | | | # | | K/cu mm | LABORATORY | | | | | | SERVICES, | | | | | | CORE | | + + + + + + | LYMPHOCYTE | 0.06 (L) | 1.00 - 4.80 | [facility] | | | # | | K/cu mm | LABORATORY | | | | | | SERVICES, | | | | | | CORE | | + + + + + + | MONOCYTE # | 0.01 (L) | 0.10 - 0.90 | [facility] [...] [facility] | [address] | [place] [address] | | | SERVICES, CORE | [address] | | | + + + + + PHOSPHORUS, PLASMA (04/19/2019 1:33 AM PDT) + +-------+ + + + [...] | + + + + + | [facility] | [address] | [place] [address] | | | SERVICES, CORE | [address] | | | + + + + + MAGNESIUM, PLASMA (04/19/2019 1:33 AM PDT) + +-------+ + + + | Component | Value | Ref Range | Performed | Pathologist | | | | | At | Signature | + +-------+ + + + | MAGNESIUM,P | 2.0 | 1.6 - 2.6 mg/dL | [facility] [...] | + + + + + | [facility] | [address] | [place] [address] | | | SERVICES, CORE | [address] | | | + + + + + COMPLETE METABOLIC SET (NA,K,CL,CO2,BUN,CREAT,GLUC,CA,AST,ALT,BILI TOTAL,ALK PHOS,ALB,PROT TOTAL) (04/19/2019 1:33 AM PDT) + +---------+ + + + | Component | Value | Ref Range | Performed | Pathologist | | | | | At | Signature | + +---------+ + + + | GLUCOSE, | 99 | 70 - 99 mg/dL | [facility] [...] +---------+ + + + | CREATININE | 0.63 | 0.60 - 1.10 | [facility] | | | PLASMA | | mg/dL | LABORATORY | | | (LAB) | | | SERVICES, | | | | | | CORE | | + +---------+ + + + | EGFR | >60 | >60 mL/min | [facility] | | | - | | | LABORATORY | | | GABONESE | | | SERVICES, | | | | | | CORE | | + +---------+ + + + | EGFR NON | >60 | >60 mL/min | [facility] | | | -DORY | | | LABORATORY | | | [...] + + + | TOTAL CO2, | 32 | 21 - 32 mmol/L | [facility] [...] +---------+ + + + | ALBUMIN, | 2.7 (L) | 3.5 - 4.7 g/dL | [...] + + + | ALT (SGPT) | 20 | <=60 U/L | [facility] | | | | | | LABORATORY | | | | | | SERVICES, | | | | | | CORE | | + +---------+ + + + | ANION GAP | 5 | 4 - 11 mmol/L | [facility] [...] [facility] | [address] | [place] [address] | | | SERVICES, CORE | [address] | | | + + + + + CBC AND AUTO DIFF (04/18/2019 5:40 PM PDT) + + + + + + | Component | Value | Ref Range | Performed | Pathologist | | | | | At | Signature | + + + + + + | WHITE CELL | 6.91 | 3.50 - 10.80 | [facility] | [...] + + + + | HEMATOCRIT | 31.1 (L) | 36.0 - 46.0 % | [...] + + + + | MCHC | 32.5 | 32.0 - 36.0 | [facility] | | | | | g/dL | LABORATORY | | | | | | SERVICES, | | | | | | CORE | | + + + + + + | RDW SD | 45.6 | 35.1 - 46.3 fL | [facility] | | | | | | LABORATORY | | | | | | SERVICES, | | | | | | CORE | | + + + + + + | PLATELET | 170 | 150 - 400 K/cu | [facility] [...] + + + + | NEUTROPHIL | 98.5 (H) | 50.0 - 70.0 % | [facility] | | | % | | | LABORATORY | | | | | | SERVICES, | | | | | | CORE | | + + + + + + | LYMPHOCYTE | 0.6 (L) | 18.0 - 42.0 % | [facility] | | | % | | | LABORATORY | | | | | | SERVICES, | | | | | | CORE | | + + + + + + | MONOCYTE % | 0.3 (L) | 3.5 - 9.0 % | [...] + + + + | NEUTROPHIL | 6.81 | 1.80 - 7.70 | [facility] | | | # | | K/cu mm | LABORATORY | | | | | | SERVICES, | | | | | | CORE | | + + + + + + | LYMPHOCYTE | 0.04 (L) | 1.00 - 4.80 | [facility] | | | # | | K/cu mm | LABORATORY | | | | | | SERVICES, | | | | | | CORE | | + + + + + + | MONOCYTE # | 0.02 (L) | 0.10 - 0.90 | [facility] [...] Performed At | + + + | Include differential if WBC greater than or equal to 0.5 Include | [facility] | | differential if WBC greater than or equal to 0.5 Increased immature | LABORATORY | | granulocytes (IG) define a left shift. Immature granulocytes (IG) are | SERVICES, CORE | | an automated count of metamyelocytes, myelocytes and promyelocytes. | | | Bands are not included in the IG count. Bands are included in the | | | neutrophil count. | | + + + + + + + + | Performing | Address | City/State/Zipcode | Phone Number | | Organization | | | | + + + + + | [facility] | [address] | [place] [address] | | | SERVICES, CORE | [address] | | | + + + + + ASPERGILLUS GALACTOMANNAN ANTIGEN, SERUM (04/18/2019 12:03 AM PDT) + + + + + [...] + | ASP GAL | 0.05 | <=0.49 Index | [facility] | | [...] + + | Performing | Address | City/State/[facility] | Phone Number | | Organization | | | | + + + + + | [facility] | [address] | [place] [address] | | | SERVICES, SPECIAL | [address] | | | | IMM + COAG | | | | + + + + + INR (04/18/2019 12:03 AM PDT) + +-------+ + + + | Component | Value | Ref Range | Performed | Pathologist | | | | | At | Signature | + +-------+ + + + | INR | 1.07 | 0.90 - 1.20 INR | [facility] | | | | | | LABORATORY [...] [facility] | [address] | [place] [address] | | | SERVICES, CORE | [address] | | | + + + + + LDH TOTAL, PLASMA (04/18/2019 12:03 AM PDT) + +---------+ + + + | Component | Value | Ref Range | Performed | Pathologist | | | | | At | Signature | + +---------+ + + + | LD TOTAL, | 173 | <=250 U/L | [facility] | | [...] | + + + + + | [facility] | [address] | [place] [address] | | | SERVICES, CORE | [address] | | | + + + + + CBC AND AUTO DIFF (04/18/2019 12:03 AM PDT) + + + + + + | Component | Value | Ref Range | Performed | Pathologist | | | | | At | Signature | + + + + + + | WHITE CELL | 8.72 | 3.50 - 10.80 | [facility] | | | COUNT | | K/cu mm | LABORATORY | | | | | | SERVICES, | | | | | | CORE | | + + + + + + | RED CELL | 3.44 (L) | 4.00 - 5.20 | [facility] [...] + + + + | HEMATOCRIT | 30.9 (L) | 36.0 - 46.0 % | [facility] | | | | | | LABORATORY | | | | | | SERVICES, | | | | | | CORE | | + + + + + + | MCV | 89.8 | 80.0 - 100.0 fL | [facility] [...] + + + | RDW SD | 45.1 | 35.1 - 46.3 fL | [facility] | | | | | | LABORATORY | | | | | | SERVICES, | | | | | | CORE | | + + + + + + | PLATELET | 163 | 150 - 400 K/cu | [facility] [...] + + + + | NEUTROPHIL | 97.9 (H) | 50.0 - 70.0 % | [facility] | | | % | | | LABORATORY | | | | | | SERVICES, | | | | | | CORE | | + + + + + + | LYMPHOCYTE | 0.7 (L) | 18.0 - 42.0 % | [facility] | | | % | | | LABORATORY | | | | | | SERVICES, | | | | | | CORE | | + + + + + + | MONOCYTE % | 0.8 (L) | 3.5 - 9.0 % | [...] + + + + | NEUTROPHIL | 8.54 (H) | 1.80 - 7.70 | [facility] | | | # | | K/cu mm | LABORATORY | | | | | | SERVICES, | | | | | | CORE | | + + + + + + | LYMPHOCYTE | 0.06 (L) | 1.00 - 4.80 | [facility] [...] + + + + | IG# | 0.05 | 0.00 - 0.10 | [...] | + + + + + | [facility] | [address] | [place] [address] | | | SERVICES, CORE | [address] | | | + + + + + PHOSPHORUS, PLASMA (04/18/2019 12:03 AM PDT) + +-------+ + + + [...] | + + + + + | [facility] | [address] | [place] [address] | | | SERVICES, CORE | [address] | | | + + + + + MAGNESIUM, PLASMA (04/18/2019 12:03 AM PDT) + +-------+ + + + | Component | Value | Ref Range | Performed | Pathologist | | | | | At | Signature | + +-------+ + + + | MAGNESIUM,P | 2.0 | 1.6 - 2.6 mg/dL | [facility] [...] | + + + + + | [facility] | [address] | [place] [address] | | | SERVICES, CORE | [address] | | | + + + + + COMPLETE METABOLIC SET (NA,K,CL,CO2,BUN,CREAT,GLUC,CA,AST,ALT,BILI TOTAL,ALK PHOS,ALB,PROT TOTAL) (04/18/2019 12:03 AM PDT) + +---------+ + + + | Component | Value | Ref Range | Performed | Pathologist | | | | | At | Signature | + +---------+ + + + | GLUCOSE, | 110 [...] | | | LABORATORY | | | GABONESE | | | SERVICES, | | | | | | CORE | | + +---------+ + + + | EGFR NON | >60 | >60 mL/min | [facility] | | | -DORY | | | LABORATORY | | | RICAN | | | SERVICES, | | | | | | CORE | | + +---------+ + + + | SODIUM, | 144 | 136 - 145 | [facility] | [...] +---------+ + + + | CHLORIDE, | 112 (H) | 97 - 108 mmol/L | [facility] | | | PLASMA | | | LABORATORY | | | (LAB) | | | SERVICES, | | | | | | CORE | | + +---------+ + + + | TOTAL CO2, | 28 | 21 - 32 mmol/L | [facility] | | | PLASMA | | | LABORATORY | | | (LAB) | | | SERVICES, | | | | | | CORE | | + +---------+ + + + | CALCIUM, | 7.7 (L) | 8.6 - 10.2 | [facility] [...] +---------+ + + + | ALBUMIN, | 2.7 (L) | 3.5 - 4.7 g/dL | [...] + + + | ANION GAP | 4 | 4 - 11 mmol/L | [facility] | | | | | | LABORATORY | | | | | | SERVICES, | | | | | | CORE | | + +---------+ + + + | ANION | 7 [...] | + + + + + | [facility] | [address] [facility] [facility] | [place] [address] | | | SERVICES, CORE | [address] | | | + + + + + URIC ACID, PLASMA (04/18/2019 12:03 AM PDT) + +-------+ + + + | Component | Value | Ref Range | Performed | Pathologist | | | | | At | Signature | + +-------+ + + + | URIC ACID, | 3.8 | 2.5 - 6.2 mg/dL | [facility] [...] [facility] | [address] | [place] [address] | | | SERVICES, [facility] | [address] | | | + + + + + X-RAY CHEST 2 VIEW (04/17/2019 6:04 PM PDT) + + | Specimen | + + | | + + + + + | Narrative | Performed At | + + + | EXAM: CHEST 2 VIEWS HISTORY: dyspnea, first fever- non | [facility] | | neutropenic COMPARISON: 03/22/2019 FINDINGS: Interval | RADIOLOGY VOICE | | placement of left IJ central venous catheter with tip in the SVC. The | RECOGNITION 2 | | cardiomediastinal contour is normal. Interval development of small | | | right and trace left pleural effusions with associated bibasilar | | | atelectasis. No new focal consolidation. There is no pulmonary edema. | | | The bones are intact. IMPRESSION: Interval development of | | | small right and trace left pleural effusions with associated bibasilar | | | atelectasis. There is no new focal consolidation. I have | | | personally reviewed the images and, if necessary, edited the report. I | | | agree with the report as now presented. Final signature: Deng | | | MD Jose 04/17/2019 7:06 PM Preliminary: Deng Garcia MD | | | Dictation initiated: Deng Garcia MD 04/17/2019 7:03 PM | | + + + + + | Procedure Note | + + | Service Account, Radiant Res In Interface - 04/17/2019 7:07 PM PDT EXAM: CHEST 2 | | VIEWS HISTORY: dyspnea, first fever- non neutropenic COMPARISON: 03/22/2019 FINDINGS: | | Interval placement of left IJ central venous catheter with tip in the SVC. The | | cardiomediastinal contour is normal. Interval development of small right and trace left | | pleural effusions with associated bibasilar atelectasis. No new focal consolidation. | | There is no pulmonary edema. The bones are intact. IMPRESSION: Interval development of | | small right and trace left pleural effusions with associated bibasilar atelectasis. | | There is no new focal consolidation. I have personally reviewed the images and, if | | necessary, edited the report. I agree with the report as now presented. Final | | signature: Deng Garcia MD 04/17/2019 7:06 PM Preliminary: Deng Garcia MD | | Dictation initiated: Deng Garcia MD 04/17/2019 7:03 PM | |IMPRESSION: | | | |Interval development of small right and trace left pleural effusions with associated bibasi lar atelectasis. There is no new focal consolidation. | | | |I have personally reviewed the images and, if necessary, edited the report. I agree with th e report as now presented. | | | |Final signature: Deng Garcia MD 04/17/2019 7:06 PM | |Preliminary: Deng Garcia MD | |Dictation initiated: Deng Garcia MD 04/17/2019 7:03 PM | + + + +---------+ + + | Performing | Address | City/State/Zipcode | Phone Number | | Organization | | | | + +---------+ + + | [facility] | | | | | VOICE RECOGNITION 2 | | | | + +---------+ + + CULTURE, BLOOD BACTI & YEAST [facility] (04/17/2019 5:09 PM PDT) + + + + + [...] Specimen | + + | Blood - Peripheral | | (qualifier value) | + + + + + + + | Performing | Address | City/State/Zipcode | Phone Number | | Organization | | | | + + + + + | [facility] | [address] [facility] [address] [facility] | [place] [address] | | | SERVICES, CORE | [address] | | | + + + + + CULTURE, BLOOD BACTI & YEAST [facility] (04/17/2019 4:45 PM PDT) + + + + + [...] Specimen | + + | Blood - White port | | lumen | + + + + + + + | Performing | Address | City/State/Zipcode | Phone Number | | Organization | | | | + + + + + | [facility] | [address] | [place] [address] | | | SERVICES, CORE | [address] | | | + + + + + CBC AND AUTO DIFF (04/17/2019 4:21 PM PDT) + + + + + + | Component | Value | Ref Range | Performed | Pathologist | | | | | At | Signature | + + + + + + | WHITE CELL | 12.82 (H) | 3.50 - 10.80 | [facility] | | | COUNT | | K/cu mm | LABORATORY | | | | | | SERVICES, | | | | | | CORE | | + + + + + + | RED CELL | 3.72 (L) | 4.00 - 5.20 | [facility] | | | COUNT | | M/cu mm | LABORATORY | | | | | | SERVICES, | | | | | | CORE | | + + + + + + | HEMOGLOBIN | 10.6 (L) | 12.0 - 16.0 | [facility] | | | | | g/dL | LABORATORY | | | | | | SERVICES, | | | | | | CORE | | + + + + + + | HEMATOCRIT | 32.7 (L) | 36.0 - 46.0 % | [...] + + + | RDW SD | 44.5 | 35.1 - 46.3 fL | [facility] | | | | | | LABORATORY | | | | | | SERVICES, | | | | | | CORE | | + + + + + + | PLATELET | 203 | 150 - 400 K/cu | [facility] | | | COUNT | | mm | LABORATORY | | | | | | SERVICES, | | | | | | CORE | | + + + + + + | MPV | 12.4 (H) | 9.7 - 12.3 fL | [...] + + + + | NEUTROPHIL | 95.9 (H) | 50.0 - 70.0 % | [facility] | | | % | | | LABORATORY | | | | | | SERVICES, | | | | | | CORE | | + + + + + + | LYMPHOCYTE | 1.6 (L) | 18.0 - 42.0 % | [facility] | | | % | | | LABORATORY | | | | | | SERVICES, | | | | | | CORE | | + + + + + + | MONOCYTE % | 1.6 (L) | 3.5 - 9.0 % | [...] + + + + | NEUTROPHIL | 12.30 (H) | 1.80 - 7.70 | [facility] | | | # | | K/cu mm | LABORATORY | | | | | | SERVICES, | | | | | | CORE | | + + + + + + | LYMPHOCYTE | 0.20 (L) | 1.00 - 4.80 | [facility] [...] Performed At | + + + | Include differential if WBC greater than or equal to 0.5 Increased | [facility] | | immature granulocytes (IG) define a left shift. Immature granulocytes | LABORATORY | | (IG) are an automated count of metamyelocytes, myelocytes and | SERVICES, CORE | | promyelocytes. Bands are not included in the IG count. Bands are | | | included in the neutrophil count. | | + + + + + + + + | Performing | Address | City/State/Zipcode | Phone Number | | Organization | | | | + + + + + | [facility] | [address] [facility] | [place] [address] | | | SERVICES, CORE | [address] | | | + + + + + POTASSIUM, PLASMA (04/17/2019 4:21 PM PDT) + +---------+ + + + [...] [facility] | [address] | [place] [address] | | | SERVICES, CORE | [address] | | | + + + + + CBC AND AUTO DIFF (04/17/2019 12:49 AM PDT) + + + + + + | Component | Value | Ref Range | Performed | Pathologist | | | | | At | Signature | + + + + + + | WHITE CELL | 13.72 (H) | 3.50 - 10.80 | [facility] | | | COUNT | | K/cu mm | LABORATORY | | | | | | SERVICES, | | | | | | CORE | | + + + + + + | RED CELL | 3.86 (L) | 4.00 - 5.20 | [facility] | | | COUNT | | M/cu mm | LABORATORY | | | | | | SERVICES, | | | | | | CORE | | + + + + + + | HEMOGLOBIN | 11.2 (L) | 12.0 - 16.0 | [facility] | | | | | g/dL | LABORATORY | | | | | | SERVICES, | | | | | | CORE | | + + + + + + | HEMATOCRIT | 34.1 (L) | 36.0 - 46.0 % | [facility] | | | | | | LABORATORY | | | | | | SERVICES, | | | | | | CORE | | + + + + + + | MCV | 88.3 | 80.0 - 100.0 fL | [facility] [...] + + + | RDW SD | 43.9 | 35.1 - 46.3 fL | [facility] | | | | | | LABORATORY | | | | | | SERVICES, | | | | | | CORE | | + + + + + + | PLATELET | 210 | 150 - 400 K/cu | [facility] | | | COUNT | | mm | LABORATORY | | | | | | SERVICES, | | | | | | CORE | | + + + + + + | MPV | 12.4 (H) | 9.7 - 12.3 fL | [...] + + + + | NEUTROPHIL | 95.8 (H) | 50.0 - 70.0 % | [facility] | | | % | | | LABORATORY | | | | | | SERVICES, | | | | | | CORE | | + + + + + + | LYMPHOCYTE | 1.4 (L) | 18.0 - 42.0 % | [facility] | | | % | | | LABORATORY | | | | | | SERVICES, | | | | | | CORE | | + + + + + + | MONOCYTE % | 1.8 (L) | 3.5 - 9.0 % | [...] + + + + | NEUTROPHIL | 13.14 (H) | 1.80 - 7.70 | [facility] | | | # | | K/cu mm | LABORATORY | | | | | | SERVICES, | | | | | | CORE | | + + + + + + | LYMPHOCYTE | 0.19 (L) | 1.00 - 4.80 | [facility] | | | # | | K/cu mm | LABORATORY | | | | | | SERVICES, | | | | | | CORE | | + + + + + + | MONOCYTE # | 0.25 | 0.10 - 0.90 | [facility] | [...] [facility] | [address] | [place] [address] | | | SERVICES, CORE | [address] | | | + + + + + PHOSPHORUS, PLASMA (04/17/2019 12:49 AM PDT) + +-------+ + + + [...] | + + + + + | [facility] | [address] | [place] [address] | | | SERVICES, CORE | [address] | | | + + + + + MAGNESIUM, PLASMA (04/17/2019 12:49 AM PDT) + +-------+ + + + | Component | Value | Ref Range | Performed | Pathologist | | | | | At | Signature | + +-------+ + + + | MAGNESIUM,P | 2.3 | 1.6 - 2.6 mg/dL | [facility] [...] [facility] | [address] | [place] [address] | | | SERVICES, CORE | [address] | | | + + + + + COMPLETE METABOLIC SET (NA,K,CL,CO2,BUN,CREAT,GLUC,CA,AST,ALT,BILI TOTAL,ALK PHOS,ALB,PROT TOTAL) (04/17/2019 12:49 AM PDT) + + + + + [...] + + + + | CREATININE | 0.59 (L) | 0.60 - 1.10 | [facility] | | | PLASMA | | mg/dL | LABORATORY | | | (LAB) | | | SERVICES, | | | | | | CORE | | + + + + + + | EGFR | >60 | >60 mL/min | [facility] | | | - | | | LABORATORY | | | GABONESE | | | SERVICES, | | | | | | CORE | | + + + + + + | EGFR NON | >60 | >60 mL/min | [facility] | | | -DORY | | | LABORATORY | | | [...] + + + + | CHLORIDE, | 110 [...] + + + + | TOTAL | 5.9 [...] + + + + | AST(SGOT) | 36 | <=41 U/L | [facility] | | [...] [facility] | [address] | [place] [address] | | | SERVICES, CORE | [address] | | | + + + + + CBC AND AUTO DIFF (04/16/2019 4:16 PM PDT) + + + + + + | Component | Value | Ref Range | Performed | Pathologist | | | | | At | Signature | + + + + + + | WHITE CELL | 15.44 (H) | 3.50 - 10.80 | [facility] | | | COUNT | | K/cu mm | LABORATORY | | | | | | SERVICES, | | | | | | CORE | | + + + + + + | RED CELL | 3.84 (L) | 4.00 - 5.20 | [facility] | | | COUNT | | M/cu mm | LABORATORY | | | | | | SERVICES, | | | | | | CORE | | + + + + + + | HEMOGLOBIN | 11.1 (L) | 12.0 - 16.0 | [facility] | | | | | g/dL | LABORATORY | | | | | | SERVICES, | | | | | | CORE | | + + + + + + | HEMATOCRIT | 33.8 (L) | 36.0 - 46.0 % | [...] + + + | RDW SD | 42.5 | 35.1 - 46.3 fL | [facility] | | | | | | LABORATORY | | | | | | SERVICES, | | | | | | CORE | | + + + + + + | PLATELET | 214 | 150 - 400 K/cu | [facility] | | | COUNT | | mm | LABORATORY | | | | | | SERVICES, | | | | | | CORE | | + + + + + + | MPV | 12.6 (H) | 9.7 - 12.3 fL | [...] + + + + | NEUTROPHIL | 93.3 (H) | 50.0 - 70.0 % | [facility] | | | % | | | LABORATORY | | | | | | SERVICES, | | | | | | CORE | | + + + + + + | LYMPHOCYTE | 3.0 (L) | 18.0 - 42.0 % | [...] + + + | EOS % | 0.1 (L) | 1.0 - 3.0 % | [...] + + + + | NEUTROPHIL | 14.41 (H) | 1.80 - 7.70 | [facility] | | | # | | K/cu mm | LABORATORY | | | | | | SERVICES, | | | | | | CORE | | + + + + + + | LYMPHOCYTE | 0.46 (L) | 1.00 - 4.80 | [facility] [...] Performed At | + + + | Include differential if WBC greater than or equal to 0.5 Increased | [facility] | | immature granulocytes (IG) define a left shift. Immature granulocytes | LABORATORY | | (IG) are an automated count of metamyelocytes, myelocytes and | SERVICES, CORE | | promyelocytes. Bands are not included in the IG count. Bands are | | | included in the neutrophil count. | | + + + + + + + + | Performing | Address | City/State/Zipcode | Phone Number | | Organization | | | | + + + + + | [facility] | [address] | [place] [address] | | | SERVICES, CORE | [address] | | | + + + + + URINE, MICROSCOPIC EXAM (04/16/2019 4:16 PM PDT) + +-------+ + + + | Component | Value | Ref Range | Performed | Pathologist | | | | | At | Signature | + +-------+ + + + | RED CELLS | <1 | 0 - 3 /hpf | [facility] | | | | | | LABORATORY | | | | | | SERVICES, | | | | | | CORE | | + +-------+ + + + | WHITE CELLS | <1 | 0 - 5 /hpf | [facility] [...] +-------+ + + + | SQUAMOUS | None | None, Few /hpf | [facility] | | | EPITHELIAL | | | LABORATORY | | | | | | SERVICES, | | | | | | CORE | | + +-------+ + + + | MUCOUS | None [...] +-------+ + + + | HYALINE | 0 [...] | + + + + + | [facility] | [address] | [place] [address] | | | SERVICES, CORE | [address] | | | + + + + + UA DIPSTVINOD ONLY (04/16/2019 4:16 PM PDT) + + + + + + | Component | Value | Ref Range | Performed | Pathologist | | | | | At | Signature | + + + + + + | COLOR(UR) | Colorless | | [facility] | | | | [...] + + + + | GLUCOSE(UR) | 50.0 | Negative, 50.0 | [facility] | | [...] + + + + | PH(UR) | 6.0 | 5.0 - 8.0 | [facility] | [...] + + + + | SPECIFIC | 1.003 (L)Comment: | 1.005 - 1.030 | [facility] | | | GRAVITY | [facility] [place] | | LABORATORY | | | | performed by | | SERVICES, | | | | refractometry | | CORE | | + + + + + + + + | Specimen | + + | Urine - Urine | | (substance) | + + + + + + + | Performing | Address | City/State/Zipcode | Phone Number | | Organization | | | | + + + + + | [facility] | [address] | [place] [address] | | | SERVICES, CORE | [address] | | | + + + + + CBC AND AUTO DIFF (04/16/2019 12:33 AM PDT) + + + + + + | Component | Value | Ref Range | Performed | Pathologist | | | | | At | Signature | + + + + + + | WHITE CELL | 7.95 | 3.50 - 10.80 | [facility] | | | COUNT | | K/cu mm | LABORATORY | | | | | | SERVICES, | | | | | | CORE | | + + + + + + | RED CELL | 4.14 | 4.00 - 5.20 | [facility] | | | COUNT | | M/cu mm | LABORATORY | | | | | | SERVICES, | | | | | | CORE | | + + + + + + | HEMOGLOBIN | 12.0 | 12.0 - 16.0 | [facility] | | | | | g/dL | LABORATORY | | | | | | SERVICES, | | | | | | CORE | | + + + + + + | HEMATOCRIT | 37.2 | 36.0 - 46.0 % | [facility] [...] + + + | RDW SD | 45.1 | 35.1 - 46.3 fL | [facility] | | | | | | LABORATORY | | | | | | SERVICES, | | | | | | CORE | | + + + + + + | PLATELET | 236 | 150 - 400 K/cu | [facility] | | | COUNT | | mm | LABORATORY | | | | | | SERVICES, | | | | | | CORE | | + + + + + + | MPV | 11.9 | 9.7 - 12.3 fL | [facility] [...] + + + + | NEUTROPHIL | 90.3 (H) | 50.0 - 70.0 % | [facility] | | | % | | | LABORATORY | | | | | | SERVICES, | | | | | | CORE | | + + + + + + | LYMPHOCYTE | 7.8 (L) | 18.0 - 42.0 % | [facility] | | | % | | | LABORATORY | | | | | | SERVICES, | | | | | | CORE | | + + + + + + | MONOCYTE % | 0.8 (L) | 3.5 - 9.0 % | [facility] | | | | | | LABORATORY | | | | | | SERVICES, | | | | | | CORE | | + + + + + + | EOS % | 0.1 (L) | 1.0 - 3.0 % | [...] + + + + | NEUTROPHIL | 7.18 | 1.80 - 7.70 | [facility] | | | # | | K/cu mm | LABORATORY | | | | | | SERVICES, | | | | | | CORE | | + + + + + + | LYMPHOCYTE | 0.62 (L) | 1.00 - 4.80 | [facility] | | | # | | K/cu mm | LABORATORY | | | | | | SERVICES, | | | | | | CORE | | + + + + + + | MONOCYTE # | 0.06 (L) | 0.10 - 0.90 | [facility] [...] + + + + | IG# | 0.05 | 0.00 - 0.10 | [...] | + + + + + | [facility] | [address] | [place] [address] | | | SERVICES, CORE | [address] | | | + + + + + CMV PCR QUANTITATION, PLASMA (04/16/2019 12:33 AM PDT) + + + + + [...] 2 fold may not reflect true | [facility] | | biological changes and [...] | characteristics determined by the [facility] | | | Molecular Diagnostic Center. [...] | Act of 1988. The [facility] | | | Diagnostic Center is a fully licensed and/or accredited clinical | | | laboratory under CLIA, CAP, and the [facility]. | | + + + + + + + + | Performing | Address | City/State/Zipcode | Phone Number | | Organization | | | | + + + + + | [facility] | [address] | [place] [address] | | | DIAGNOSTIC | [address] | | | | LABORATORIES | | | | + + + + + PHOSPHORUS, PLASMA (04/16/2019 12:33 AM PDT) + +-------+ + + + | Component | Value | Ref Range | Performed | Pathologist | | | | | At | Signature | + +-------+ + + + | PHOSPHORUS, | 2.6 | 2.4 - 4.7 mg/dL | [facility] [...] | + + + + + | [facility] | [address] | [place] [address] | | | SERVICES, CORE | [address] | | | + + + + + MAGNESIUM, PLASMA (04/16/2019 12:33 AM PDT) + +---------+ + + + [...] [facility] | [address] | [place] [address] | | | SERVICES, CORE | [address] | | | + + + + + COMPLETE METABOLIC SET (NA,K,CL,CO2,BUN,CREAT,GLUC,CA,AST,ALT,BILI TOTAL,ALK PHOS,ALB,PROT TOTAL) (04/16/2019 12:33 AM PDT) + +---------+ + + + | Component | Value | Ref Range | Performed | Pathologist | | | | | At | Signature | + +---------+ + + + | GLUCOSE, | 151 (H) | 70 - 99 mg/dL | [...] +---------+ + + + | CREATININE | 0.75 | 0.60 - 1.10 | [facility] | | | PLASMA | | mg/dL | LABORATORY | | | (LAB) | | | SERVICES, | | | | | | CORE | | + +---------+ + + + | EGFR | >60 | >60 mL/min | [facility] | | | - | | | LABORATORY | | | GABONESE | | | SERVICES, | | | | | | CORE | | + +---------+ + + + | EGFR NON | >60 | >60 mL/min | [facility] | | | -DORY | | | LABORATORY | | | [...] | + + + + + | [facility] | [address] | [place] [address] | | | SERVICES, CORE | [address] | | | + + + + + VERITO-SEVILLA VIRUS PCR, PLASMA (04/16/2019 12:33 AM PDT) + + + + + [...] | | performance characteristics determined by the [facility] | | | Diagnostics Center. It has not been cleared or approved by the Food | | | and Drug Administration. FDA approval is not required for clinical | | | use of this test, and therefore validation was done as required under | | | the requirements of the Clinical Laboratory Improvement Act of 1988. | | | The [facility] is a fully licensed and/or accredited clinical laboratory | | | under CLIA, CAP, and the [facility]. References: 1) | | | Phong [...] | | real-time polymerase chain reaction. Transfusion 2008;48:[id number]. | | | 4) Bassam BEARDEN, Genny CASAS, Félix I, van keshia Bij W, et al. | | | Frequent monitoring of Verito-Sevilla virus DNA load in unfractionated | | | whole blood is essential for early detection of posttransplant | | | lymphoproliferative disease in high-risk patients. Blood | | | 2001;97(5):8415-7367. | | + + + + + + + + | Performing | Address | City/State/Zipcode | Phone Number | | Organization | | | | + + + + + | [facility] | [address] | [place] [address] | | | DIAGNOSTIC | [address] | | | | LABORATORIES | | | | + + + + + URINE, MICROSCOPIC EXAM (04/15/2019 6:04 PM PDT) + +-------+ + + + [...] + + + | WHITE CELLS | <1 | 0 - 5 /hpf | [facility] [...] +-------+ + + + | SQUAMOUS | None | None, Few /hpf | [facility] | | | EPITHELIAL | | | LABORATORY | | | | | | SERVICES, | | | | | | CORE | | + +-------+ + + + | MUCOUS | None [...] +-------+ + + + | HYALINE | 0 [...] | + + + + + | [facility] | [address] | [place] [address] | | | SERVICES, CORE | [address] | | | + + + + + UA, DIPSTICK ONLY (04/15/2019 6:04 PM PDT) + + + + + [...] + + + + | KETONES | Negative | Negative mg/dL | [facility] | | [...] + + + + | SPECIFIC | 1.006Comment: Specific | 1.005 - 1.030 | [facility] | | | GRAVITY | [place] performed by | | LABORATORY | | [...] | + + + + + | [facility] | [address] | [place] [address] | | | SERVICES, CORE | [address] | | | + + + + + VRE (PENNIE) BY PCR (04/15/2019 5:19 PM PDT) + + + + + [...] [facility] | [address] | [place] [address] | | | SERVICES, CORE | [address] | | | + + + + + COAGULOPATHY PANEL (INR,APTT,FIBRINOGEN) (04/15/2019 1:49 PM PDT) + +-------+ + + + | Component | Value | Ref Range | Performed | Pathologist | | | | | At | Signature | + +-------+ + + + | INR | 1.05 | 0.90 - 1.20 INR | [facility] | | | | | | LABORATORY | | | | | | SERVICES, | | | | | | CORE | | + +-------+ + + + | APTT | 29.2 | 26.0 - 36.0 | [facility] | | | | | seconds | LABORATORY | | | | | | SERVICES, | | | | | | CORE | | + +-------+ + + + | FIBRINOGEN | 444 | 150 - 450 mg/dL | [facility] | | | LEVEL | | | LABORATORY | | | | | | SERVICES, | | | | | | CORE | | + +-------+ + + + + + | Specimen | + + | Blood - Blood | | (substance) | + + + + + | Narrative | Performed At | + + + | INR Therapeutic ranges for full anticoagulation: INR for | [facility] | | Venous Thromboembolism (2.0 - 3.0) INR INR for | LABORATORY | | most patients with mech. valves (2.5 - 3.5) INR APTT values for | SERVICES, CORE | | monitoring heparin therapy may be affected by specimens processed >1 | | | hour after collection. APTT Therapeutic Range: | | | (75 - 120) sec Heparin levels of 0.35 - 0.7 U/mL | | | | | + + + + + + + + | Performing | Address | City/State/Zipcode | Phone Number | | Organization | | | | + + + + + | [facility] | [address] | [place] [address] | | | SERVICES, CORE | [address] | | | + + + + + CBC AND AUTO DIFF (04/15/2019 1:48 PM PDT) + + + + + [...] + + + | RED CELL | 4.30 | 4.00 - 5.20 | [facility] | | | COUNT | | M/cu mm | LABORATORY | | | | | | SERVICES, | | | | | | CORE | | + + + + + + | HEMOGLOBIN | 12.2 | 12.0 - 16.0 | [facility] | | | | | g/dL | LABORATORY | | | | | | SERVICES, | | | | | | CORE | | + + + + + + | HEMATOCRIT | 38.2 | 36.0 - 46.0 % | [facility] [...] + + + | RDW SD | 45.1 | 35.1 - 46.3 fL | [facility] | | | | | | LABORATORY | | | | | | SERVICES, | | | | | | CORE | | + + + + + + | PLATELET | 258 | 150 - 400 K/cu | [facility] | | | COUNT | | mm | LABORATORY | | | | | | SERVICES, | | | | | | CORE | | + + + + + + | MPV | 11.7 | 9.7 - 12.3 fL | [facility] [...] + + + + | NEUTROPHIL | 67.3 | 50.0 - 70.0 % | [facility] | | | % | | | LABORATORY | | | | | | SERVICES, | | | | | | CORE | | + + + + + + | LYMPHOCYTE | 23.8 | 18.0 - 42.0 % | [facility] | | | % | | | LABORATORY | | | | | | SERVICES, | | | | | | CORE | | + + + + + + | MONOCYTE % | 5.9 | 3.5 - 9.0 % | [facility] [...] + + + + | NEUTROPHIL | 5.59 | 1.80 - 7.70 | [facility] | | | # | | K/cu mm | LABORATORY | | | | | | SERVICES, | | | | | | CORE | | + + + + + + | LYMPHOCYTE | 1.98 | 1.00 - 4.80 | [facility] | | | # | | K/cu mm | LABORATORY | | | | | | SERVICES, | | | | | | CORE | | + + + + + + | MONOCYTE # | 0.49 | 0.10 - 0.90 | [facility] | [...] + + + | BASO # | 0.07 | 0.00 - 0.10 | [...] | + + + + + | [facility] | [address] | [place] [address] | | | SERVICES, CORE | [address] | | | + + + + + ANTIBODY SCREEN (04/15/2019 1:48 PM PDT) + + + + + [...] [facility] | [address] | [place] [address] | | | SERVICES, | [address] | | | | TRANSFUSION MEDICINE | | | | + + + + + ABO & RH TYPE (04/15/2019 1:48 PM PDT) + + + + + [...] | + + + + + | [facility] | [address] | [place] [address] | | | SERVICES, | [address] | | | | TRANSFUSION MEDICINE | | | | + + + + + LDH TOTAL, PLASMA (04/15/2019 1:48 PM PDT) + +---------+ + + + | Component | Value | Ref Range | Performed | Pathologist | | | | | At | Signature | + +---------+ + + + | LD TOTAL, | 138 | <=250 U/L | [facility] | | [...] | + + + + + | [facility] | [address] | [place] [address] | | | SERVICES, CORE | [address] | | | + + + + + BILIRUBIN DIRECT (04/15/2019 1:48 PM PDT) + +---------+ + + + | Component | Value | Ref Range | Performed | Pathologist | | | | | At | Signature | + +---------+ + + + | BILIRUBIN | <0.1 | 0.0 - 0.3 mg/dL | [facility] | | | DIRECT | | | LABORATORY | | | | | | SERVICES, | | | | | | CORE | | + +---------+ + + + | MINERVA D CMNT | No Hemo | | [...] [facility] | [address] | [place] [address] | | | SERVICES, CORE | [address] | | | + + + + + URIC ACID, PLASMA (04/15/2019 1:48 PM PDT) + +-------+ + + + | Component | Value | Ref Range | Performed | Pathologist | | | | | At | Signature | + +-------+ + + + | URIC ACID, | 5.3 | 2.5 - 6.2 mg/dL | [facility] [...] [facility] | [address] | [place] [address] | | | SERVICES, CORE | [address] | | | + + + + + PHOSPHORUS, PLASMA (04/15/2019 1:48 PM PDT) + +-------+ + + + [...] | + + + + + | [facility] | [address] | [place] [address] | | | SERVICES, CORE | [address] | | | + + + + + MAGNESIUM, PLASMA (04/15/2019 1:48 PM PDT) + +-------+ + + + | Component | Value | Ref Range | Performed | Pathologist | | | | | At | Signature | + +-------+ + + + | MAGNESIUM,P | 1.8 | 1.6 - 2.6 mg/dL | [facility] | | | [facility]DR[facility] | | | [...] [facility] | [address] | [place] [address] | | | MENG, LUZMARIA | [address] | | | + + + + + COMPLETE METABOLIC SET (NA,K,CL,CO2,BUN,CREAT,GLUC,CA,AST,ALT,BILI TOTAL,ALK PHOS,ALB,PROT TOTAL) (04/15/2019 1:48 PM PDT) + + + + + + | Component | Value | Ref Range | Performed | Pathologist | | | | | At | Signature | + + + + + + | GLUCOSE, | 83 | 70 - 99 mg/dL | [facility] [...] | | | LABORATORY | | | GABONESE | | | SERVICES, | | | | | | CORE | | + + + + + + | EGFR NON | >60 | >60 mL/min | [facility] | | | -DORY | | | LABORATORY | | | [...] + + + + | CHLORIDE, | 110 [...] + + + | ALK PHOS | 98 | 42 - 98 U/L | [facility] [...] + + + | ANION GAP | 4 | 4 - 11 mmol/L | [facility] | | | | | | LABORATORY | | | | | | SERVICES, | | | | | | CORE | | + + + + + + | ANION | 6 | 4 - 11 mmol/L [...] | + + + + + | [facility] | [address] | [place] [address] | | | SERVICES, CORE | [address] | | | + + + + + IR CENTRAL VENOUS ACCESS PROCEDURE (04/15/2019 12:08 PM PDT) + + | Specimen | + + | | + + + + + | Narrative | Performed At | + + + | Procedure: Left Chest Groshong Tunneled Central Venous Catheter | [facility] | | Placement Primary resistor tester: Nathan Mena MD Ep[employer] Fabrication Supervisor | RADIOLOGY VOICE | | attending resistor tester: Pee Hebert M.D. Preoperative | RECOGNITION 2 [...] the dedicated RN. | | | Intra-service crvx-dx-[id number] time: 15 minutes Versed 2 mg Fentanyl [...] report as now presented. Final signature: Arsalan Ferrari MD 04/15/2019 1:10 PM Preliminary: Pee Hebert MD | | | Dictation initiated: Pee Hebert MD 04/15/2019 1:06 PM | | + + + + + | Procedure Note | + + | Service Account, Radiant Res In Interface - 04/15/2019 1:11 PM PDT Procedure: Left | | Chest Groshong Tunneled Central Venous Catheter Placement Primary resistor tester: Nathan Bell | | MD Rajesh Ep[employer]rication Supervisor attending resistor tester: Pee Hebert M.D. Preoperative | | diagnosis: [...] administered by the dedicated | | RN.Intra-service [id number]-dg-osjk time: 15 minutesVersed 2 mgFentanyl 100 mcg [...] by the attending physician and administered by [facility] dedicated RN. | |Intra-service ibfc-pn-nlmh time: 15 minutes | |Versed 2 mg [...] necessary, edited the report. I agree with [facility] report as now presented. | | [...] Myelodysplastic syndrome, unspecified | + + | Acute deep vein thrombosis (DVT) of both upper extremities (HCC) | + + | Immunocompromised state due to drug therapy | + + | Pancytopenia (HCC) Other pancytopenia | + + documented in this encounter Administered Medications + +--------+ +--------+------+------+ | Medication Order | MAR | Action | Dose | Rate | Site | | | Action | Date | | | | + +--------+ +--------+------+------+ | acetaminophen (TYLENOL) tablet | Given | 05/13/20 | 650 mg | | | | 325-650 mg 325-650 mg, oral, | | 19 3:52 | | | | | EVERY 4 HOURS NEEDED, Starting | | AM PST | | | | | 04/15/19 at 1343, Until Wed | | | | | | | 05/18/19 at 2315, mild pain, | | | | | | | fever, blood product | | | | | | | premedication | | | | | | + +--------+ +--------+------+------+ +-------+ +--------+---+---+ | Given | 05/12/20 | 650 mg | | | | | 19 8:12 | | | | | | AM PST | | | | +-------+ +--------+---+---+ | Given | 05/11/20 | 650 mg | | | | | 19 11:28 | | | | | | AM PST | | | | +-------+ +--------+---+---+ +---+---+ | | | +---+---+ + +-------+ +--------+---+---+ | acetaminophen (TYLENOL) tablet | Given | 04/22/20 | 650 mg | | | | 650 mg 650 mg, oral, ONE TIME | | 19 2:13 | | | | | DURING VISIT, Starting Fri | | PM PDT | | | | | 04/22/19 at 0000, Until Fri | | | | | | | 04/22/19 at 2359 | | | | | | + +-------+ +--------+---+---+ +-------+ +--------+---+---+ | Given | 04/22/20 | 650 mg | | | | | 19 10:44 | | | | | | AM PDT | | | | +-------+ +--------+---+---+ + +---+ | | | + +---+ | acyclovir (ZOVIRAX) 450 mg in | | | NaCl 0.9 % (NS) IV 450 mg (259 | | | mg/m2), intravenous, EVERY 12 | | | HOURS NEEDED, Starting Sat | | | 04/23/19 at 0000, Until Wed | | | 05/18/19 at 2315, RN to send | | | [employer] message to pharmacy to | | | change order from PRN to | | | scheduled if patient unable to | | | tolerate oral medications | | + +---+ | | | + +---+ + +-------+ +--------+---+---+ | allopurinol (ZYLOPRIM) tablet | Given | 04/21/20 | 300 mg | | | | 300 mg 300 mg, oral, DAILY, | | 19 9:26 | | | | | doses, First dose on Thu04/15/19 | | AM PDT | | | | | at 1530, Last dose on Thu | | | | | | | 04/21/19 at 0900 | | | | | | + +-------+ +--------+---+---+ +-------+ +--------+---+---+ | Given | 04/20/20 | 300 mg | | | | | 19 10:24 | | | | | | AM PDT | | | | +-------+ +--------+---+---+ | Given | 04/19/20 | 300 mg | | | | | 19 10:13 | | | | | | AM PDT | | | | +-------+ +--------+---+---+ +---+---+ | | | +---+---+ + + + +------+---+---+ | alteplase (CATHFLO ACTIVASE) | Line | 05/10/20 | 2 mg | | | | injection 2 mg 2 mg, | Lock | 19 11:32 | | | | | Intracatheter, NEEDED, | Instille | PM PST | | | | | Starting 04/15/19 at 1343, | d | | | | | | Until 05/18/19 at 2315, | | | | | | | central catheter sluggishness | | | | | | + + + +------+---+---+ + + +------+---+---+ | Line Lock Instilled | 04/24/20 | 2 mg | | | | | 19 6:16 | | | | | | PM PDT | | | | + + +------+---+---+ | Line Lock Instilled | 04/24/20 | 2 mg | | | | | 19 6:15 | | | | | | PM PDT | | | | + + +------+---+---+ +---+---+ | | | +---+---+ + +-------+ +-------+---+---+ | aluminum-magnesium | Given | 04/25/20 | 30 mL | | | | hydroxide-simethicone (MAALOX; | | 19 11:46 | | | | | MYLANTA) 200-200-20 mg/5 mL | | AM PDT | | | | | suspension 30 mL 30 mL, oral, | | | | | | | EVERY 3 HOURS NEEDED, Starting | | | | | | | 04/15/19 at 1343, Until Wed | | | | | | | 05/18/19 at 2315, | | | | | | | gastrointestinal upset | | | | | | + +-------+ +-------+---+---+ +---+---+ | | | +---+---+ + +-------+ +--------+---+---+ | aprepitant (CINVANTI) | Given | 04/15/20 | 130 mg | | | | injectable emulsion 130 mg 130 | | 19 5:06 | | | | | mg, intravenous, ONCE, 1 dose, | | PM PDT | | | | | 04/15/19 at 1700 | | | | | | + +-------+ +--------+---+---+ +---+---+ | | | +---+---+ + +-------+ +-----+---+---+ | ceFEPIme (MAXIPIME) injection 2 | Given | 04/20/20 | 2 g | | | | g 2 g, intravenous, EVERY 8 | | 19 10:23 | | | | | HOURS, First dose on 04/17/19 | | AM PDT | | | | | at 1700, Until Discontinued | | | | | | + +-------+ +-----+---+---+ +-------+ +-----+---+---+ | Given | 04/20/20 | 2 g | | | | | 19 1:30 | | | | | | AM PDT | | | | +-------+ +-----+---+---+ | Given | 04/19/20 | 2 g | | | | | 19 5:15 | | | | | | PM PDT | | | | +-------+ +-----+---+---+ +---+---+ | | | +---+---+ + +-------+ +-----+---+---+ | ceFEPIme (MAXIPIME) injection 2 | Given | 05/07/20 | 2 g | | | | g 2 g, intravenous, EVERY 8 | | 19 4:53 | | | | | HOURS, First dose on [facility] 04/28/19 | | AM PST | | | | | at 1915, Until Discontinued | | | | | | + +-------+ +-----+---+---+ +-------+ +-----+---+---+ | Given | 05/06/20 | 2 g | | | | | 19 8:04 | | | | | | PM PST | | | | +-------+ +-----+---+---+ | Given | 05/06/20 | 2 g | | | | | 19 12:20 | | | | | | PM PST | | | | +-------+ +-----+---+---+ +---+---+ | | | +---+---+ + +-------+ +---+---+---+ | clindamycin (CLEOCIN T) 1 % gel | Given | 05/02/20 | | | | | topical, TWICE DAILY, First | | 19 9:36 | | | | | dose on 05/02/19 at 1100, | | PM PST | | | | | Until Discontinued | | | | | | + +-------+ +---+---+---+ +-------+ +---+---+---+ | Given | 05/02/20 | | | | | | 19 1:20 | | | | | | PM PST | | | | +-------+ +---+---+---+ +---+---+ | | | +---+---+ + +-------+ +------+---+---+ | cyclobenzaprine (FLEXERIL) | Given | 05/12/20 | 5 mg | | | | tablet 5 mg 5 mg, oral, EVERY 8 | | 19 6:10 | | | | | HOURS NEEDED, Starting Wed | | AM PST | | | | | 05/11/19 at 2111, Until Wed | | | | | | | 05/18/19 at 2315, muscle spasms | | | | | | + +-------+ +------+---+---+ +-------+ +------+---+---+ | Given | 05/11/20 | 5 mg | | | | | 19 9:48 | | | | | | PM PST | | | | +-------+ +------+---+---+ +---+---+ | | | +---+---+ + +---------+ + +-------+---+ | cyclophosphamide (CYTOXAN) 60 | New Bag | 04/16/20 | 3,000 mg | 250 | | | mg/kg = 3,000 mg in NaCl 0.9 % | | 19 5:58 | | mL/hr | | | (NS) IV 3,000 mg (rounded from | | PM PDT | | | | | 3,006 mg = 60 mg/kg | | | | | | | 50.1 kg Treatment plan ideal | | | | | | | weight), intravenous, Administer | | | | | | | over 2 Hours, EVERY 24 HOURS, 2 | | | | | | | doses, First dose on Thu04/15/19 | | | | | | | at 1800, Last dose on Thu | | | | | | | 04/16/19 at 1800, Administer on | | | | | | | Day -7 and Day -6. Dose is based | | | | | | | on actual weight unless pt is > | | | | | | | 30 kg above IBW and then dose | | | | | | | based on adjusted body weight | | | | | | | using factor of 25% HIGH ALERT | | | | | | | MEDICATION-CHEMOTHERAPY | | | | | | | Irritant., | | | | | | + +---------+ + +-------+---+ +---------+ + +-------+---+ | New Bag | 04/15/20 | 3,000 mg | 250 | | | | 19 6:03 | | mL/hr | | | | PM PDT | | | | +---------+ + +-------+---+ +---+---+ | | | +---+---+ + +-------+ +-------+---+---+ | dexAMETHasone (DECADRON) tablet | Given | 04/15/20 | 12 mg | | | | 12 mg 12 mg, oral, ONCE, 1 | | 19 5:13 | | | | | dose, 04/15/19 at 1700 | | PM PDT | | | | + +-------+ +-------+---+---+ +---+---+ | | | +---+---+ + +-------+ +-------+---+---+ | dexAMETHasone (DECADRON) tablet | Given | 04/21/20 | 12 mg | | | | 12 mg 12 mg, oral, EVERY 24 | | 19 6:15 | | | | | HOURS, 4 doses, First dose on Mon | | AM PDT | | | | | 04/18/19 at 0600, Last dose on | | | | | | | Cheryl 04/21/19 at 0600 | | | | | | + +-------+ +-------+---+---+ +-------+ +-------+---+---+ | Given | 04/20/20 | 12 mg | | | | | 19 6:03 | | | | | | AM PDT | | | | +-------+ +-------+---+---+ | Given | 04/19/20 | 12 mg | | | | | 19 5:45 | | | | | | AM PDT | | | | +-------+ +-------+---+---+ +---+---+ | | | +---+---+ + +-------+ +------+---+---+ | dexAMETHasone (DECADRON) tablet | Given | 04/17/20 | 8 mg | | | | 8 mg 8 mg, oral, EVERY 24 | | 19 5:13 | | | | | HOURS, 2 doses, First dose on Sat | | PM PDT | | | | | 04/16/19 at 0900, Last dose on | | | | | | | 04/17/19 at 0900 | | | | | | + +-------+ +------+---+---+ +-------+ +------+---+---+ | Given | 04/16/20 | 8 mg | | | | | 19 4:56 | | | | | | PM PDT | | | | +-------+ +------+---+---+ +---+---+ | | | +---+---+ + +-------+ +-------+---+---+ | dicyclomine (BENTYL) tablet 20 | Given | 05/09/20 | 20 mg | | | | mg 20 mg, oral, FOUR TIMES DAILY | | 19 9:19 | | | | | NEEDED, Starting 04/26/19 | | AM PST | | | | | at 1224, Until 05/18/19 at | | | | | | | 2315, aabdominal pain | | | | | | + +-------+ +-------+---+---+ +-------+ +-------+---+---+ | Given | 05/02/20 | 20 mg | | | | | 19 8:21 | | | | | | AM PST | | | | +-------+ +-------+---+---+ | Given | 05/01/20 | 20 mg | | | | | 19 8:00 | | | | | | PM PST | | | | +-------+ +-------+---+---+ +---+---+ | | | +---+---+ + +-------+ +-------+---+---+ | diphenhydrAMINE (BENADRYL) | Given | 04/22/20 | 50 mg | | | | capsule 25-50 mg 25-50 mg, oral, | | 19 2:13 | | | | | ONE TIME DURING VISIT, Starting | | PM PDT | | | | | 04/22/19 at 1407, Until Sat | | | | | | | 04/23/19 at 1406 | | | | | | + +-------+ +-------+---+---+ +---+---+ | | | +---+---+ + +-------+ +-------+---+---+ | diphenhydrAMINE (BENADRYL) | Given | 05/07/20 | 50 mg | | | | capsule 25-50 mg 25-50 mg, oral, | | 19 6:03 | | | | | EVERY 6 HOURS NEEDED, | | AM PST | | | | | Starting 04/26/19 at 2135, | | | | | | | Until 05/18/19 at 2315, | | | | | | | itching | | | | | | + +-------+ +-------+---+---+ +-------+ +-------+---+---+ | Given | 05/07/20 | 25 mg | | | | | 19 12:21 | | | | | | AM PST | | | | +-------+ +-------+---+---+ | Given | 05/06/20 | 25 mg | | | | | 19 11:21 | | | | | | PM PST | | | | +-------+ +-------+---+---+ +---+---+ | | | +---+---+ + +-------+ +-------+---+---+ | diphenhydrAMINE (BENADRYL) | Given | 04/22/20 | 50 mg | | | | capsule 50 mg 50 mg, oral, ONE | | 19 10:43 | | | | | TIME DURING VISIT, Starting Fri | | AM PDT | | | | | 04/22/19 at 0000, Until Fri | | | | | | | 04/22/19 at 2359 | | | | | | + +-------+ +-------+---+---+ + +---+ | | | + +---+ | diphenhydrAMINE (BENADRYL) | | | injection 25-50 mg 25-50 mg, | | | intravenous, NEEDED, 1 dose, | | | Starting 04/22/19 at 0000, | | | Until 05/18/19 at 2315, | | | hypersensitivity or infusion | | | reaction | | + +---+ | | | + +---+ + +-------+ +-------+---+---+ | | Given | 04/29/20 | 15 mL | | | | msriyhjvcmWOONT-qwcmjunth-WAIWBE | | 19 8:22 | | | | | (SPECIAL MOUTHWASH) suspension | | AM PDT | | | | | (compound) 10-15 mL 10-15 mL, | | | | | | | oral, EVERY 1 HOUR NEEDED, | | | | | | | Starting Thu04/15/19 at 1343, | | | | | | | Until Thu05/18/19 at 2315, | | | | | | | oral/esophageal pain | | | | | | + +-------+ +-------+---+---+ + +---+ | | | + +---+ | EPINEPHrine HCl (PF) (ADRENALIN | | | PF) injection 0.3 mg 0.3 mg | | | (set by rule on 04/12/2019 10:53 | | | AM), intramuscular, NEEDED, 1 | | | dose, Starting Thu04/22/19 at | | | 0000, Until Thu05/18/19 at 2315, | | | hypersensitivity or infusion | | | reaction | | + +---+ | | | + +---+ + +-------+ +-------+---+---+ | escitalopram oxalate (LEXAPRO) | Given | 05/18/20 | 20 mg | | | | tablet 20 mg 20 mg, oral, DAILY, | | 19 9:05 | | | | | First dose on 04/16/19 at | | AM PST | | | | | 0900, Until Discontinued | | | | | | + +-------+ +-------+---+---+ +-------+ +-------+---+---+ | Given | 05/17/20 | 20 mg | | | | | 19 8:11 | | | | | | AM PST | | | | +-------+ +-------+---+---+ | Given | 05/16/20 | 20 mg | | | | | 19 9:58 | | | | | | AM PST | | | | +-------+ +-------+---+---+ + +---+ | | | + +---+ | famotidine (PEPCID) injection | | | 20 mg 20 mg, intravenous, | | | NEEDED, 1 dose, Starting Fri | | | 04/22/19 at 0000, Until Thu | | | 05/18/19 at 2315, | | | hypersensitivity or infusion | | | reaction | | + +---+ | | | + +---+ + +-------+ +-------+---+---+ | famotidine (PEPCID) tablet 20 | Given | 05/18/20 | 20 mg | | | | mg 20 mg, oral, TWICE DAILY, | | 19 9:05 | | | | | First dose on Thu04/20/19 at | | AM PST | | | | | 0900, Until Discontinued | | | | | | + +-------+ +-------+---+---+ +-------+ +-------+---+---+ | Given | 05/17/20 | 20 mg | | | | | 19 10:05 | | | | | | PM PST | | | | +-------+ +-------+---+---+ | Given | 05/17/20 | 20 mg | | | | | 19 8:12 | | | | | | AM PST | | | | +-------+ +-------+---+---+ +---+---+ | | | +---+---+ + +-------+ +--------+---+---+ | fentaNYL (SUBLIMAZE) injection | Given | 04/15/20 | 25 mcg | | | | 25-100 mcg 25-100 mcg, | | 19 11:55 | | | | | intravenous, INTRAPROCEDURE PRN, | | AM PDT | | | | | 20 doses, Starting Thu04/15/19 | | | | | | | at 1026, Until Thu04/15/19 at | | | | | | | 1247, periprocedural pain | | | | | | | management | | | | | | + +-------+ +--------+---+---+ +-------+ +--------+---+---+ | Given | 04/15/20 | 25 mcg | | | | | 19 11:41 | | | | | | AM PDT | | | | +-------+ +--------+---+---+ | Given | 04/15/20 | 25 mcg | | | | | 19 11:20 | | | | | | AM PDT | | | | +-------+ +--------+---+---+ +---+---+ | | | +---+---+ + +-------+ +--------+---+---+ | fentaNYL (SUBLIMAZE) injection | Given | 05/02/20 | 25 mcg | | | | 25-50 mcg 25-50 mcg, | | 19 9:19 | | | | | intravenous, EVERY 2 HOURS | | AM PST | | | | | NEEDED, Starting 05/01/19 at | | | | | | | 4, Until 05/18/19 at 2315, | | | | | | | severe pain | | | | | | + +-------+ +--------+---+---+ +-------+ +--------+---+---+ | Given | 05/01/20 | 25 mcg | | | | | 19 10:14 | | | | | | PM PST | | | | +-------+ +--------+---+---+ +---+---+ | | | +---+---+ + +-------+ +---------+---+---------+ | filgrastim-sndz (YULISSA) | Given | 05/17/20 | 300 mcg | | Abdomen | | injection 300 mcg 300 mcg | | 19 4:44 | | | | | (rounded from 336 mcg = 5 mcg/kg | | PM PST | | | | | | | | | | | | 67.2 kg Treatment plan recorded | | | | | | | weight), subcutaneous, EVERY | | | | | | | EVENING AT 1700, First dose on | | | | | | | 04/23/19 at 1700, Until | | | | | | | Discontinued | | | | | | + +-------+ +---------+---+---------+ +-------+ +---------+---+---------+ | Given | 05/16/20 | 300 mcg | | Abdomen | | | 19 6:20 | | | | | | PM PST | | | | +-------+ +---------+---+---------+ | Given | 05/15/20 | 300 mcg | | Abdomen | | | 19 5:07 | | | | | | PM PST | | | | +-------+ +---------+---+---------+ +---+---+ | | | +---+---+ + +-------+ +---------+---+---------+ | filgrastim-sndz (ZARXIO) | Given | 05/18/20 | 300 mcg | | Abdomen | | injection 300 mcg 300 mcg | | 19 11:33 | | | | | (rounded from 336 mcg = 5 mcg/kg | | AM PST | | | | | | | | | | | | 67.2 kg Treatment plan recorded | | | | | | | weight), subcutaneous, DAILY, | | | | | | | First dose (after last | | | | | | | modification) on Thu05/18/19 at | | | | | | | 1130, Until Discontinued | | | | | | + +-------+ +---------+---+---------+ +---+---+ | | | +---+---+ + +---------+ +---------+--------+---+ | fludarabine (FLUDARA) 42.5 mg | New Bag | 04/17/20 | 42.5 mg | 203.4 | | | in NaCl 0.9 % (NS) IV 42.5 mg | | 19 9:25 | | mL/hr | | | (rounded from 42.75 mg = 25 mg/m2 | | PM PDT | | | | | | | | | | | | 1.71 m2 Treatment plan recorded | | | | | | | BSA), intravenous, Administer | | | | | | | over 30 Minutes, EVERY 24 HOURS, | | | | | | | 3 doses, First dose on Fri | | | | | | | 04/15/19 at 1999, Last dose on | | | | | | | 04/17/19 at 1999, Infuse on | | | | | | | days -7, -6 and -5. Dosed per | | | | | | | actual body weight. HIGH ALERT | | | | | | | MEDICATION-CHEMOTHERAPY, | | | | | | + +---------+ +---------+--------+---+ +---------+ +---------+--------+---+ | New Bag | 04/16/20 | 42.5 mg | 203.4 | | | | 19 8:44 | | mL/hr | | | | PM PDT | | | | +---------+ +---------+--------+---+ | New Bag | 04/15/20 | 42.5 mg | 203.4 | | | | 19 8:15 | | mL/hr | | | | PM PDT | | | | +---------+ +---------+--------+---+ +---+---+ | | | +---+---+ + +-------+ +-------+---+---+ | furosemide (LASIX) injection 20 | Given | 04/17/20 | 20 mg | | | | mg 20 mg, intravenous, ONCE, 1 | | 19 1:41 | | | | | dose, 10/20/19 at 0145 | | AM PDT | | | | + +-------+ +-------+---+---+ +---+---+ | | | +---+---+ + +-------+ +-------+---+---+ | furosemide (LASIX) injection 20 | Given | 04/30/20 | 20 mg | | | | mg 20 mg, intravenous, ONCE, | | 19 4:02 | | | | | dose, 04/30/19 at 1545 | | PM PDT | | | | + +-------+ +-------+---+---+ +---+---+ | | | +---+---+ + +-------+ +-------+---+---+ | furosemide (LASIX) injection 20 | Given | 05/02/20 | 20 mg | | | | mg 20 mg, intravenous, ONCE, | | 19 10:37 | | | | | dose, 05/02/19 at 0930 | | AM PST | | | | + +-------+ +-------+---+---+ +---+---+ | | | +---+---+ + +-------+ +-------+---+---+ | furosemide (LASIX) injection 20 | Given | 05/04/20 | 20 mg | | | | mg 20 mg, intravenous, ONCE, 1 | | 19 4:05 | | | | | dose, 05/04/19 at 0415 | | AM PST | | | | + +-------+ +-------+---+---+ +---+---+ | | | +---+---+ + +-------+ +-------+---+---+ | furosemide (LASIX) injection 40 | Given | 04/17/20 | 40 mg | | | | mg 40 mg, intravenous, ONCE, 1 | | 19 11:11 | | | | | dose, 04/17/19 at 1100 | | AM PDT | | | | + +-------+ +-------+---+---+ +---+---+ | | | +---+---+ + +-------+ +-------+---+---+ | furosemide (LASIX) injection 40 | Given | 04/18/20 | 40 mg | | | | mg 40 mg, intravenous, ONCE, | | 19 6:07 | | | | | dose, 04/18/19 at 1400 | | PM PDT | | | | + +-------+ +-------+---+---+ +---+---+ | | | +---+---+ + +-------+ +-------+---+---+ | furosemide (LASIX) injection 40 | Given | 04/28/20 | 40 mg | | | | mg 40 mg, intravenous, ONCE, | | 19 11:36 | | | | | dose, [facility] 04/28/19 at 0945 | | AM PDT | | | | + +-------+ +-------+---+---+ +---+---+ | | | +---+---+ + +-------+ +-------+---+---+ | furosemide (LASIX) injection 40 | Given | 04/30/20 | 40 mg | | | | mg 40 mg, intravenous, ONCE, 6:16 | | | | | dose, 04/30/19 at 0600 | | AM PDT | | | | + +-------+ +-------+---+---+ +---+---+ | | | +---+---+ + +-------+ +-------+---+---+ | furosemide (LASIX) injection 40 | Given | 05/04/20 | 40 mg | | | | mg 40 mg, intravenous, ONCE, 10:34 | | | | | dose, 05/04/19 at 0915 | | AM PST | | | | + +-------+ +-------+---+---+ +---+---+ | | | +---+---+ + +-------+ +-------+---+---+ | furosemide (LASIX) injection 40 | Given | 05/05/20 | 40 mg | | | | mg 40 mg, intravenous, ONCE, | | 12:10 | | | | | dose, 05/04/19 at 2345 | | AM PST | | | | + +-------+ +-------+---+---+ +---+---+ | | | +---+---+ + +-------+ +-------+---+---+ | furosemide (LASIX) injection 40 | Given | 05/05/20 | 40 mg | | | | mg 40 mg, intravenous, ONCE, | | 11:15 | | | | | dose, [facility] 05/05/19 at 1030 | | AM PST | | | | + +-------+ +-------+---+---+ +---+---+ | | | +---+---+ + +-------+ +-------+---+---+ | furosemide (LASIX) injection 40 | Given | 05/06/20 | 40 mg | | | | mg 40 mg, intravenous, ONCE, | | 19 10:40 | | | | | dose, [place] 05/06/19 at 0930 | | AM PST | | | | + +-------+ +-------+---+---+ +---+---+ | | | +---+---+ + +-------+ +-------+---+---+ | furosemide (LASIX) injection 60 | Given | 05/07/20 | 60 mg | | | | mg 60 mg, intravenous, ONCE, | | 19 11:11 | | | | | dose, 05/07/19 at 1030 | | AM PST | | | | + +-------+ +-------+---+---+ +---+---+ | | | +---+---+ + +-------+ +-------+---+---+ | furosemide (LASIX) injection 60 | Given | 05/08/20 | 60 mg | | | | mg 60 mg, intravenous, ONCE, | | 19 11:02 | | | | | dose, 05/08/19 at 1000 | | AM PST | | | | + +-------+ +-------+---+---+ + +---+ | | | + +---+ | glycerin-mineral oil (LUBRIDERM | | | SENSITIVE LANOLIN FREE) lotion | | | topical, EVERY 2 HOURS NEEDED, | | | Starting Thu04/15/19 at 1343, | | | Until 05/18/19 at 2315, dry | | | skin | | + +---+ | | | + +---+ | haloperidol (HALDOL) tablet | | | 0.5-1.5 mg 0.5-1.5 mg, oral, | | | EVERY 4 HOURS NEEDED, Starting | | | 04/15/19 at 1528, Until Wed | | | 05/18/19 at 2315, alternate to | | | prochlorperazine -OR- if first | | | line is ineffective -OR- if | | | related to agitation, | | | restlessness, or wakefulness | | + +---+ | | | + +---+ | haloperidol lactate (HALDOL) | | | injection 0.5-1.5 mg 0.5-1.5 mg, | | | intravenous, EVERY 4 HOURS | | | NEEDED, Starting 04/15/19 at | | | 1528, Until Thu05/18/19 at 2315, | | | alternate to prochlorperazine | | | -OR- if first line is ineffective | | | -OR- if related to agitation, | | | restlessness, or wakefulness | | + +---+ | | | + +---+ + +-------+ +-------+---+---+ | hydrALAZINE (APRESOLINE) | Given | 04/22/20 | 10 mg | | | | injection 10 mg 10 mg, | | 19 4:36 | | | | | intravenous, ONCE, 1 dose, Fri | | PM PDT | | | | | 04/22/19 at 1700 | | | | | | + +-------+ +-------+---+---+ +---+---+ | | | +---+---+ + +-------+ +-------+---+---+ | hydrALAZINE (APRESOLINE) tablet | Given | 05/07/20 | 25 mg | | | | 25 mg 25 mg, oral, THREE TIMES | | 19 1:40 | | | | | DAILY NEEDED, Starting Sat | | PM PST | | | | | 05/07/19 at 1326, Until Sat | | | | | | | 05/07/19 at 1737, Hypertension | | | | | | | with BP >160/>90 | | | | | | + +-------+ +-------+---+---+ +---+---+ | | | +---+---+ + +-------+ +-------+---+---+ | hydrALAZINE (APRESOLINE) tablet | Given | 05/10/20 | 25 mg | | | | 25 mg 25 mg, oral, THREE TIMES | | 19 5:32 | | | | | DAILY NEEDED, Starting Sat | | AM PST | | | | | 05/07/19 at 1737, Until Wed | | | | | | | 05/18/19 at 2315, Hypertension | | | | | | | with BP >160 | | | | | | + +-------+ +-------+---+---+ +-------+ +-------+---+---+ | Given | 05/10/20 | 25 mg | | | | | 19 12:33 | | | | | | AM PST | | | | +-------+ +-------+---+---+ | Given | 05/08/20 | 25 mg | | | | | 19 3:50 | | | | | | AM PST | | | | +-------+ +-------+---+---+ +---+---+ | | | +---+---+ + +-------+ +--------+---+---+ | hydrocortisone (CORTEF) tablet | Given | 04/22/20 | 100 mg | | | | 100 mg 100 mg, oral, ONE TIME | | 19 10:43 | | | | | DURING VISIT, Starting Fri | | AM PDT | | | | | 04/22/19 at 0000, Until Fri | | | | | | | 04/22/19 at 2359 | | | | | | + +-------+ +--------+---+---+ +---+---+ | | | +---+---+ + + + +---+---+---+ | hydrocortisone (PROCTOZONE) 2.5 | Pt | 04/27/20 | | | | | % rectal cream topical, THREE | Administ | 19 8:03 | | | | | TIMES DAILY, First dose on Thu | ered | AM PDT | | | | | 04/22/19 at 1600, Until | | | | | | | Discontinued | | | | | | + + + +---+---+---+ + + +---+---+---+ | Pt Administered | 04/26/20 | | | | | | 19 8:39 | | | | | | PM PDT | | | | + + +---+---+---+ | Given | 04/26/20 | | | | | | 19 4:56 | | | | | | PM PDT | | | | + + +---+---+---+ +---+---+ | | | +---+---+ + +-------+ +---+---+---+ | hydrocortisone (PROCTOZONE) 2.5 | Given | 05/18/20 | | | | | % rectal cream topical, THREE | | 19 5:00 | | | | | TIMES DAILY, First dose on Sat | | PM PST | | | | | 04/30/19 at 0100, Until | | | | | | | Discontinued | | | | | | + +-------+ +---+---+---+ +-------+ +---+---+---+ | Given | 05/17/20 | | | | | | 19 10:12 | | | | | | PM PST | | | | +-------+ +---+---+---+ | Given | 05/17/20 | | | | | | 19 8:13 | | | | | | AM PST | | | | +-------+ +---+---+---+ + +---+ | | | + +---+ | hydrocortisone sodium succinate | | | (PF) (SOLU-CORTEF) injection 100 | | | mg 100 mg, intravenous, | | | NEEDED, 1 dose, Starting Fri | | | 04/22/19 at 0000, Until Wed | | | 05/18/19 at 2315, | | | hypersensitivity or infusion | | | reaction | | + +---+ | | | + +---+ + +-------+ +--------+---+---+ | HYDROmorphone (DILAUDID) | Given | 04/28/20 | 0.3 mg | | | | injection 0.2-0.5 mg 0.2-0.5 mg, | | 19 10:40 | | | | | intravenous, EVERY 1 HOUR | | AM PDT | | | | | NEEDED, Starting 04/15/19 at | | | | | | | 1211, Until 05/01/19 at 1938, | | | | | | | 2nd line severe pain | | | | | | | post-procedure | | | | | | + +-------+ +--------+---+---+ +---+---+ | | | +---+---+ + +-------+ +-------+---+---+ | hydrOXYzine (ATARAX) tablet 10 | Given | 05/07/20 | 10 mg | | | | mg 10 mg, oral, EVERY 6 HOURS | | 19 11:25 | | | | | NEEDED, Starting 05/07/19 at | | PM PST | | | | | 1004, Until 05/18/19 at 2315, | | | | | | | itching | | | | | | + +-------+ +-------+---+---+ +-------+ +-------+---+---+ | Given | 05/07/20 | 10 mg | | | | | 19 4:47 | | | | | | PM PST | | | | +-------+ +-------+---+---+ | Given | 05/07/20 | 10 mg | | | | | 19 11:10 | | | | | | AM PST | | | | +-------+ +-------+---+---+ +---+---+ | | | +---+---+ + +-------+ +--------+---+---+ | letermovir (PREVYMIS) tablet | Given | 05/18/20 | 480 mg | | | | 480 mg 480 mg, oral, DAILY, | | 19 9:06 | | | | | First dose on 04/23/19 at | | AM PST | | | | | 0900, Until Discontinued | | | | | | + +-------+ +--------+---+---+ +-------+ +--------+---+---+ | Given | 05/17/20 | 480 mg | | | | | 19 8:17 | | | | | | AM PST | | | | +-------+ +--------+---+---+ | Given | 05/16/20 | 480 mg | | | | | 19 9:58 | | | | | | AM PST | | | | +-------+ +--------+---+---+ +---+---+ | | | +---+---+ + +-------+ +--------+---+---+ | levoFLOXacin (LEVAQUIN) tablet | Given | 04/28/20 | 500 mg | | | | 500 mg 500 mg, oral, DAILY, | | 19 8:28 | | | | | First dose on Thu04/20/19 at | | AM PDT | | | | | 1445, Until Discontinued | | | | | | + +-------+ +--------+---+---+ +-------+ +--------+---+---+ | Given | 04/27/20 | 500 mg | | | | | 19 7:57 | | | | | | AM PDT | | | | +-------+ +--------+---+---+ | Given | 04/26/20 | 500 mg | | | | | 19 8:07 | | | | | | AM PDT | | | | +-------+ +--------+---+---+ +---+---+ | | | +---+---+ + +-------+ +------+---+---+ | lisinopril (PRINIVIL) tablet 5 | Given | 05/08/20 | 5 mg | | | | mg 5 mg, oral, DAILY, First dose | | 19 8:13 | | | | | on 05/07/19 at 1745, Until | | AM PST | | | | | Discontinued | | | | | | + +-------+ +------+---+---+ +-------+ +------+---+---+ | Given | 05/07/20 | 5 mg | | | | | 19 4:47 | | | | | | PM PST | | | | +-------+ +------+---+---+ +---+---+ | | | +---+---+ + +-------+ +------+---+---+ | loperamide (IMODIUM) capsule 2 | Given | 05/17/20 | 2 mg | | | | mg 2 mg, oral, NEEDED, | | 19 9:53 | | | | | Starting 04/15/19 at 1343, | | AM PST | | | | | Until 05/18/19 at 2315, after | | | | | | | each loose stool | | | | | | + +-------+ +------+---+---+ +-------+ +------+---+---+ | Given | 05/15/20 | 2 mg | | | | | 19 10:32 | | | | | | AM PST | | | | +-------+ +------+---+---+ | Given | 05/15/20 | 2 mg | | | | | 19 10:00 | | | | | | AM PST | | | | +-------+ +------+---+---+ +---+---+ | | | +---+---+ + +-------+ +-------+---+---+ | loratadine (CLARITIN) tablet 10 | Given | 05/18/20 | 10 mg | | | | mg 10 mg, oral, DAILY, First | | 19 9:03 | | | | | dose on Thu05/05/19 at 1145, | | AM PST | | | | | Until Discontinued | | | | | | + +-------+ +-------+---+---+ +-------+ +-------+---+---+ | Given | 05/17/20 | 10 mg | | | | | 19 8:11 | | | | | | AM PST | | | | +-------+ +-------+---+---+ | Given | 05/16/20 | 10 mg | | | | | 19 9:58 | | | | | | AM PST | | | | +-------+ +-------+---+---+ +---+---+ | | | +---+---+ + +---------+ +-----+---+---+ | magnesium sulfate in water IV | New Bag | 05/18/20 | 4 g | | | | (RTU) 4 g 4 g, intravenous, | | 19 5:03 | | | | | NEEDED, Starting Thu04/15/19 at | | AM PST | | | | | 1348, Until Thu05/18/19 at 2315, | | | | | | | Mg level 1.3-1.6 mg/dL | | | | | | + +---------+ +-----+---+---+ +---------+ +-----+ +---+ | New Bag | 05/16/20 | 4 g | 25 mL/hr | | | | 19 5:29 | | | | | | AM PST | | | | +---------+ +-----+ +---+ | New Bag | 05/13/20 | 4 g | | | | | 19 3:28 | | | | | | PM PST | | | | +---------+ +-----+ +---+ +---+---+ | | | +---+---+ + +---------+ +-----+---+---+ | magnesium sulfate IV 8 g 8 g, | New Bag | 05/05/20 | 8 g | | | | intravenous, NEEDED, Starting | | 19 4:21 | | | | | 04/15/19 at 1348, Until Wed | | AM PST | | | | | 05/18/19 at 2315, Mg level less | | | | | | | than or equal to 1.2 mg/dL | | | | | | + +---------+ +-----+---+---+ + +---+ | | | + +---+ | menthol (sugar free) (COUGH | | | DROP) lozenge 5 mg 5 mg (1 | | | lozenge), oral, EVERY 1 HOUR | | | NEEDED, Starting 04/15/19 at | | | 1346, Until Thu05/18/19 at 2315, | | | mouth pain | | + +---+ | | | + +---+ + +---------+ + +--------+---+ | mesna (MESNEX) 3,000 mg in NaCl | New Bag | 04/16/20 | 3,000 mg | 42.92 | | | 0.9 % (NS) IV 3,000 mg (rounded | | 19 6:33 | | mL/hr | | | from 3,006 mg = 60 mg/kg | | PM PDT | | | | | 50.1 kg Treatment plan ideal | | | | | | | weight), intravenous, Administer | | | | | | | over 24 Hours, EVERY 24 HOURS, 2 | | | | | | | doses, First dose on Thu04/15/19 | | | | | | | at 1800, Last dose on Thu | | | | | | | 04/16/19 at 1800, Administer as | | | | | | | continuous infusion beginning | | | | | | | prior to first dose of | | | | | | | cyclophosphamide on Day -7 and | | | | | | | Day -6., | | | | | | + +---------+ + +--------+---+ + + +---+--------+---+ | Rate/Dose Verify | 04/16/20 | | 42.92 | | | | 19 10:00 | | mL/hr | | | | AM PDT | | | | + + +---+--------+---+ | Rate/Dose Verify | 04/16/20 | | 42.92 | | | | 19 4:36 | | mL/hr | | | | AM PDT | | | | + + +---+--------+---+ +---+---+ | | | +---+---+ + +-------+ +-------+---+---+ | methylPREDNISolone sod succ | Given | 05/09/20 | 18 mg | | | | (SOLU-MEDROL) injection 18 mg 18 | | 19 9:20 | | | | | mg (rounded from 17.6 mg = 0.5 | | AM PST | | | | | mg/kg/day | | | | | | | 70.4 kg), intravenous, TWICE | | | | | | | DAILY, First dose on Cheryl 05/05/19 | | | | | | | at 1415, Until Discontinued | | | | | | + +-------+ +-------+---+---+ +-------+ +-------+---+---+ | Given | 05/08/20 | 18 mg | | | | | 19 6:00 | | | | | | PM PST | | | | +-------+ +-------+---+---+ | Given | 05/08/20 | 18 mg | | | | | 19 8:25 | | | | | | AM PST | | | | +-------+ +-------+---+---+ +---+---+ | | | +---+---+ + +-------+ +-------+---+---+ | methylPREDNISolone sod succ | Given | 05/09/20 | 18 mg | | | | (SOLU-MEDROL) injection 18 mg 18 | | 19 5:13 | | | | | mg (rounded from 17.6 mg = 0.5 | | PM PST | | | | | mg/kg/day | | | | | | | 70.4 kg), intravenous, TWICE | | | | | | | DAILY, 1 dose, First dose (after | | | | | | | last modification) on Mon | | | | | | | 05/09/19 at 1800 | | | | | | + +-------+ +-------+---+---+ +---+---+ | | | +---+---+ + +-------+ +--------+---+---+ | midazolam (PF) (VERSED) | Given | 04/15/20 | 0.5 mg | | | | injection 1-5 mg 1-5 mg, | | 19 11:41 | | | | | intravenous, INTRAPROCEDURE PRN, | | AM PDT | | | | | 20 doses, Starting Thu04/15/19 | | | | | | | at 1026, Until Thu04/15/19 at | | | | | | | 1247, periprocedural sedation | | | | | | + +-------+ +--------+---+---+ +-------+ +--------+---+---+ | Given | 04/15/20 | 0.5 mg | | | | | 19 11:20 | | | | | | AM PDT | | | | +-------+ +--------+---+---+ | Given | 04/15/20 | 1 mg | | | | | 19 11:12 | | | | | | AM PDT | | | | +-------+ +--------+---+---+ +---+---+ | | | +---+---+ + +-------+ + +---+---+ | mycophenolate (CELLCEPT) tablet | Given | 05/18/20 | 1,000 mg | | | | 1,000 mg 1,000 mg (rounded from | | 19 4:41 | | | | | 1,008 mg = 15 mg/kg | | PM PST | | | | | 67.2 kg Treatment plan recorded | | | | | | | weight), oral, THREE TIMES DAILY, | | | | | | | First dose on Thu04/19/19 at | | | | | | | 0900, Until Discontinued | | | | | | + +-------+ + +---+---+ +-------+ + +---+---+ | Given | 05/18/20 | 1,000 mg | | | | | 19 9:04 | | | | | | AM PST | | | | +-------+ + +---+---+ | Given | 05/17/20 | 1,000 mg | | | | | 19 11:07 | | | | | | PM PST | | | | +-------+ + +---+---+ +---+---+ | | | +---+---+ + +-------+ +---+---+---+ | NIFEdipine 0.3 %-lidocaine 1.5% | Given | 05/18/20 | | | | | topical topical, THREE TIMES | | 19 5:01 | | | | | DAILY, First dose on Thu04/27/19 | | PM PST | | | | | at 1115, Until Discontinued | | | | | | + +-------+ +---+---+---+ +-------+ +---+---+---+ | Given | 05/18/20 | | | | | | 19 9:13 | | | | | | AM PST | | | | +-------+ +---+---+---+ | Given | 05/17/20 | | | | | | 19 11:08 | | | | | | PM PST | | | | +-------+ +---+---+---+ +---+---+ | | | +---+---+ + +-------+ +---+---+---+ | nystatin-zinc oxide-lidocaine | Given | 05/09/20 | | | | | (NDX) ointment (compound) | | 19 9:24 | | | | | topical, EVERY 1 HOUR NEEDED, | | AM PST | | | | | Starting Thu04/15/19 at 1343, | | | | | | | Until Thu05/18/19 at 2315, | | | | | | | perirectal area redness | | | | | | + +-------+ +---+---+---+ +-------+ +---+---+---+ | Given | 05/02/20 | | | | | | 19 9:40 | | | | | | PM PST | | | | +-------+ +---+---+---+ | Given | 04/29/20 | | | | | | 19 8:21 | | | | | | AM PDT | | | | +-------+ +---+---+---+ +---+---+ | | | +---+---+ + +-------+ +------+---+---+ | OLANZapine (ZYPREXA) tablet 5 | Given | 05/17/20 | 5 mg | | | | mg 5 mg, oral, AT BEDTIME, First | | 19 10:04 | | | | | dose on 05/09/19 at 2200, | | PM PST | | | | | Until Discontinued | | | | | | + +-------+ +------+---+---+ +-------+ +------+---+---+ | Given | 05/16/20 | 5 mg | | | | | 19 8:29 | | | | | | PM PST | | | | +-------+ +------+---+---+ | Given | 05/15/20 | 5 mg | | | | | 19 10:22 | | | | | | PM PST | | | | +-------+ +------+---+---+ +---+---+ | | | +---+---+ + +-------+ +-------+---+---+ | omeprazole (PRILOSEC) capsule | Given | 04/19/20 | 40 mg | | | | 40 mg 40 mg, oral, DAILY, First | | 19 10:12 | | | | | dose on 04/16/19 at 0900, | | AM PDT | | | | | Until Discontinued | | | | | | + +-------+ +-------+---+---+ +-------+ +-------+---+---+ | Given | 04/18/20 | 40 mg | | | | | 19 10:30 | | | | | | AM PDT | | | | +-------+ +-------+---+---+ | Given | 04/17/20 | 40 mg | | | | | 19 9:31 | | | | | | AM PDT | | | | +-------+ +-------+---+---+ +---+---+ | | | +---+---+ + +-------+ +------+---+---+ | ondansetron (ZOFRAN) injection | Given | 04/24/20 | 4 mg | | | | 4 mg 4 mg, intravenous, EVERY 12 | | 19 8:21 | | | | | HOURS NEEDED, Starting Fri | | AM PDT | | | | | 04/15/19 at 1211, Until Sun | | | | | | | 04/24/19 at 2044, | | | | | | | nausea/vomiting, first line | | | | | | + +-------+ +------+---+---+ +-------+ +------+---+---+ | Given | 04/22/20 | 4 mg | | | | | 19 5:14 | | | | | | PM PDT | | | | +-------+ +------+---+---+ +---+---+ | | | +---+---+ + +-------+ +------+---+---+ | ondansetron (ZOFRAN) injection | Given | 04/17/20 | 8 mg | | | | 8 mg 8 mg, intravenous, EVERY 12 | | 19 4:30 | | | | | HOURS, 5 doses, First dose on | | PM PDT | | | | | 04/15/19 at 1700, Last dose | | | | | | | on 04/17/19 at 1700 | | | | | | + +-------+ +------+---+---+ +-------+ +------+---+---+ | Given | 04/17/20 | 8 mg | | | | | 19 5:03 | | | | | | AM PDT | | | | +-------+ +------+---+---+ | Given | 04/16/20 | 8 mg | | | | | 19 4:56 | | | | | | PM PDT | | | | +-------+ +------+---+---+ +---+---+ | | | +---+---+ + +-------+ +------+---+---+ | ondansetron ODT (ZOFRAN ODT) | Given | 04/21/20 | 8 mg | | | | tablet 8 mg 8 mg, oral, EVERY 12 | | 19 6:08 | | | | | HOURS, 8 doses, First dose on | | PM PDT | | | | | 04/18/19 at 0600, Last dose | | | | | | | on Cheryl 04/21/19 at 1800 | | | | | | + +-------+ +------+---+---+ +-------+ +------+---+---+ | Given | 04/21/20 | 8 mg | | | | | 19 6:15 | | | | | | AM PDT | | | | +-------+ +------+---+---+ | Given | 04/20/20 | 8 mg | | | | | 19 5:25 | | | | | | PM PDT | | | | +-------+ +------+---+---+ +---+---+ | | | +---+---+ + +-------+ +------+---+---+ | ondansetron ODT (ZOFRAN ODT) | Given | 05/07/20 | 8 mg | | | | tablet 8 mg 8 mg, oral, EVERY 12 | | 19 5:54 | | | | | HOURS, First dose on Sun | | PM PST | | | | | 04/24/19 at 1730, Until | | | | | | | Discontinued | | | | | | + +-------+ +------+---+---+ +-------+ +------+---+---+ | Given | 05/07/20 | 8 mg | | | | | 19 4:53 | | | | | | AM PST | | | | +-------+ +------+---+---+ | Given | 05/06/20 | 8 mg | | | | | 19 5:48 | | | | | | PM PST | | | | +-------+ +------+---+---+ +---+---+ | | | +---+---+ + +-------+ +------+---+---+ | ondansetron ODT (ZOFRAN ODT) | Given | 05/09/20 | 8 mg | | | | tablet 8 mg 8 mg, oral, EVERY 12 | | 19 9:18 | | | | | HOURS NEEDED, Starting Sun | | AM PST | | | | | 05/08/19 at 1215, Until Mon | | | | | | | 05/09/19 at 1053, | | | | | | | nausea/vomiting, first line | | | | | | + +-------+ +------+---+---+ +---+---+ | | | +---+---+ + +-------+ +------+---+---+ | ondansetron ODT (ZOFRAN ODT) | Given | 05/18/20 | 8 mg | | | | tablet 8 mg 8 mg, oral, TWICE | | 19 4:41 | | | | | DAILY, First dose (after last | | PM PST | | | | | modification) on 05/09/19 at | | | | | | | 1700, Until Discontinued | | | | | | + +-------+ +------+---+---+ +-------+ +------+---+---+ | Given | 05/18/20 | 8 mg | | | | | 19 9:05 | | | | | | AM PST | | | | +-------+ +------+---+---+ | Given | 05/17/20 | 8 mg | | | | | 19 4:43 | | | | | | PM PST | | | | +-------+ +------+---+---+ +---+---+ | | | +---+---+ + +-------+ +------+---+---+ | oxyCODONE (immediate release) | Given | 05/11/20 | 5 mg | | | | (ROXICODONE) tablet 5-15 mg 5-15 | | 19 6:59 | | | | | mg, oral, EVERY 4 HOURS | | PM PST | | | | | NEEDED, Starting 04/15/19 at | | | | | | | 1211, Until 05/18/19 at 2315, | | | | | | | moderate pain post-procedure | | | | | | + +-------+ +------+---+---+ +-------+ +-------+---+---+ | Given | 05/11/20 | 5 mg | | | | | 19 5:53 | | | | | | PM PST | | | | +-------+ +-------+---+---+ | Given | 05/07/20 | 10 mg | | | | | 19 4:53 | | | | | | AM PST | | | | +-------+ +-------+---+---+ +---+---+ | | | +---+---+ + +-------+ + +---+---+ | oxymetazoline (AFRIN) 0.05 % | Given | 05/02/20 | 2 sprays | | | | nasal spray 2 spray 2 spray, | | 19 10:44 | | | | | both nostrils, NEEDED, | | PM PST | | | | | Starting 04/30/19 at 0033, | | | | | | | Until 05/18/19 at 2315, | | | | | | | nosebleed | | | | | | + +-------+ + +---+---+ +-------+ + +---+---+ | Given | 04/30/20 | 2 sprays | | | | | 19 3:15 | | | | | | AM PDT | | | | +-------+ + +---+---+ +---+---+ | | | +---+---+ + +---------+ +--------+---+---+ | pentamidine (PENTAM) IV 300 mg | New Bag | 05/13/20 | 300 mg | | | | 300 mg, intravenous, EVERY 4 | | 19 3:28 | | | | | WEEKS, First dose on Thu04/15/19 | | PM PST | | | | | at 1545, Until Discontinued | | | | | | + +---------+ +--------+---+---+ +---------+ +--------+---+---+ | New Bag | 04/15/20 | 300 mg | | | | | 19 6:23 | | | | | | PM PDT | | | | +---------+ +--------+---+---+ +---+---+ | | | +---+---+ + +---------+ +-------+-------+---+ | piperacillin-tazobactam (ZOSYN) | New Bag | 05/16/20 | 4.5 g | 200 | | | IV (minibag+) 4.5 g 4.5 g, | | 19 4:38 | | mL/hr | | | intravenous, EVERY 6 HOURS, First | | AM PST | | | | | dose on 05/07/19 at 1100, | | | | | | | Until Discontinued | | | | | | + +---------+ +-------+-------+---+ +---------+ +-------+-------+---+ | New Bag | 05/15/20 | 4.5 g | 200 | | | | 19 10:35 | | mL/hr | | | | PM PST | | | | +---------+ +-------+-------+---+ | New Bag | 05/15/20 | 4.5 g | | | | | 19 5:07 | | | | | | PM PST | | | | +---------+ +-------+-------+---+ +---+---+ | | | +---+---+ + +-------+ +--------+---+---+ | posaconazole DR (NOXAFIL) | Given | 04/22/20 | 300 mg | | | | tablet 300 mg 300 mg, oral, | | 19 9:07 | | | | | TWICE DAILY, 2 doses, First dose | | PM PDT | | | | | on Thu04/22/19 at 0900, Last | | | | | | | dose on Thu04/22/19 at 2100 | | | | | | + +-------+ +--------+---+---+ +-------+ +--------+---+---+ | Given | 04/22/20 | 300 mg | | | | | 19 8:53 | | | | | | AM PDT | | | | +-------+ +--------+---+---+ +---+---+ | | | +---+---+ + +-------+ +--------+---+---+ | posaconazole DR (NOXAFIL) | Given | 05/18/20 | 300 mg | | | | tablet 300 mg 300 mg, oral, | | 19 9:04 | | | | | DAILY, First dose on 04/23/19 | | AM PST | | | | | at 0900, Until Discontinued | | | | | | + +-------+ +--------+---+---+ +-------+ +--------+---+---+ | Given | 05/17/20 | 300 mg | | | | | 19 8:10 | | | | | | AM PST | | | | +-------+ +--------+---+---+ | Given | 05/16/20 | 300 mg | | | | | 19 9:58 | | | | | | AM PST | | | | +-------+ +--------+---+---+ +---+---+ | | | +---+---+ + +---------+ +--------+---+---+ | potassium chloride IV (central | New Bag | 05/13/20 | 40 mEq | | | | line) 40 mEq 40 mEq, | | 19 3:28 | | | | | intravenous, NEEDED, Starting | | PM PST | | | | | 04/15/19 at 1348, Until Wed | | | | | | | 05/18/19 at 2315, potassium level | | | | | | | of 3-3.4 mmol/L. Administer if | | | | | | | patient intolerant of oral | | | | | | | medications. | | | | | | + +---------+ +--------+---+---+ +---------+ +--------+---+---+ | New Bag | 05/03/20 | 40 mEq | | | | | 19 3:22 | | | | | | AM PST | | | | +---------+ +--------+---+---+ +---+---+ | | | +---+---+ + +---------+ +--------+---+---+ | potassium chloride IV (central | New Bag | 05/13/20 | 60 mEq | | | | line) 60 mEq 60 mEq, | | 19 3:37 | | | | | intravenous, NEEDED, Starting | | AM PST | | | | | 04/15/19 at 1348, Until Wed | | | | | | | 05/18/19 at 2315, potassium level | | | | | | | less than or equal to 2.9 mmol/L | | | | | | + +---------+ +--------+---+---+ +---------+ +--------+-------+---+ | New Bag | 05/02/20 | 60 mEq | | | | | 19 3:08 | | | | | | AM PST | | | | +---------+ +--------+-------+---+ | New Bag | 04/19/20 | 60 mEq | 46.7 | | | | 19 5:28 | | mL/hr | | | | AM PDT | | | | +---------+ +--------+-------+---+ +---+---+ | | | +---+---+ + +-------+ +--------+---+---+ | potassium chloride SR (K-DUR) | Given | 04/17/20 | 40 mEq | | | | tablet 40 mEq 40 mEq, oral, | | 19 1:41 | | | | | ONCE, 1 dose, 04/17/19 at | | AM PDT | | | | | 0145 | | | | | | + +-------+ +--------+---+---+ +---+---+ | | | +---+---+ + +-------+ +--------+---+---+ | potassium chloride SR (K-DUR) | Given | 04/17/20 | 40 mEq | | | | tablet 40 mEq 40 mEq, oral, | | 19 1:38 | | | | | ONCE, 1 dose, 04/17/19 at | | PM PDT | | | | | 1100 | | | | | | + +-------+ +--------+---+---+ +---+---+ | | | +---+---+ + +-------+ +--------+---+---+ | potassium chloride SR | Given | 04/30/20 | 20 mEq | | | | (KLOR-CON) tablet 20 mEq 20 mEq, | | 19 6:16 | | | | | oral, ONCE, 1 dose, 04/30/19 | | AM PDT | | | | | at 0630 | | | | | | + +-------+ +--------+---+---+ +---+---+ | | | +---+---+ + +-------+ +--------+---+---+ | potassium chloride SR | Given | 05/05/20 | 20 mEq | | | | (KLOR-CON) tablet 20 mEq 20 mEq, | | 19 9:21 | | | | | oral, TWICE DAILY, First dose on | | AM PST | | | | | 05/04/19 at 1100, Until | | | | | | | Discontinued | | | | | | + +-------+ +--------+---+---+ +-------+ +--------+---+---+ | Given | 05/04/20 | 20 mEq | | | | | 19 9:44 | | | | | | PM PST | | | | +-------+ +--------+---+---+ | Given | 05/04/20 | 20 mEq | | | | | 19 3:19 | | | | | | PM PST | | | | +-------+ +--------+---+---+ +---+---+ | | | +---+---+ + +-------+ +--------+---+---+ | potassium chloride SR | Given | 05/18/20 | 20 mEq | | | | (KLOR-CON) tablet 20 mEq 20 mEq, | | 19 9:05 | | | | | oral, TWICE DAILY, First dose on | | AM PST | | | | | 05/13/19 at 2100, Until | | | | | | | Discontinued | | | | | | + +-------+ +--------+---+---+ +-------+ +--------+---+---+ | Given | 05/17/20 | 20 mEq | | | | | 19 10:07 | | | | | | PM PST | | | | +-------+ +--------+---+---+ | Given | 05/17/20 | 20 mEq | | | | | 19 8:11 | | | | | | AM PST | | | | +-------+ +--------+---+---+ +---+---+ | | | +---+---+ + +-------+ +--------+---+---+ | potassium chloride SR | Given | 05/15/20 | 40 mEq | | | | (KLOR-CON) tablet 40 mEq 40 mEq, | | 19 7:13 | | | | | oral, NEEDED, Starting Fri | | AM PST | | | | | 04/15/19 at 1348, Until Wed | | | | | | | 05/18/19 at 2315, potassium level | | | | | | | 3-3.4 mmol/L | | | | | | + +-------+ +--------+---+---+ +-------+ +--------+---+---+ | Given | 05/12/20 | 40 mEq | | | | | 19 8:12 | | | | | | AM PST | | | | +-------+ +--------+---+---+ | Given | 05/06/20 | 40 mEq | | | | | 19 8:21 | | | | | | AM PST | | | | +-------+ +--------+---+---+ +---+---+ | | | +---+---+ + +-------+ +--------+---+---+ | potassium chloride SR | Given | 05/10/20 | 40 mEq | | | | (KLOR-CON) tablet 40 mEq 40 mEq, | | 19 8:42 | | | | | oral, TWICE DAILY, First dose | | AM PST | | | | | (after last reorder) on [facility] | | | | | | | 05/05/19 at 2145, Until | | | | | | | Discontinued | | | | | | + +-------+ +--------+---+---+ +-------+ +--------+---+---+ | Given | 05/09/20 | 40 mEq | | | | | 19 8:07 | | | | | | PM PST | | | | +-------+ +--------+---+---+ | Given | 05/09/20 | 40 mEq | | | | | 19 9:19 | | | | | | AM PST | | | | +-------+ +--------+---+---+ +---+---+ | | | +---+---+ + +---------+ +---------+---+---+ | potassium phosphate IV (CENTRAL | New Bag | 05/05/20 | 30 mmol | | | | LINE) 30 mmol 30 mmol, | | 19 4:21 | | | | | intravenous, NEEDED, Starting | | AM PST | | | | | 04/15/19 at 1349, Until Wed | | | | | | | 05/18/19 at 2315, Potassium less | | | | | | | than or equal to 3.4 mmol/L AND | | | | | | | Phosphate less than or equal to 2 | | | | | | | mg/dL | | | | | | + +---------+ +---------+---+---+ + +---+ | | | + +---+ | potassium phosphate IV (CENTRAL | | | LINE) 40 mmol 40 mmol, | | | intravenous, NEEDED, Starting | | | 04/15/19 at 1349, Until Wed | | | 05/18/19 at 2315, Potassium less | | | than or equal to 2.9 mmol/L AND | | | Phosphate less than or equal to | | | 1.5 mg/dL. | | + +---+ | | | + +---+ + +-------+ +-------+---+---+ | predniSONE (DELTASONE) tablet | Given | 05/18/20 | 10 mg | | | | 10 mg 10 mg, oral, DAILY, First | | 19 9:06 | | | | | dose (after last modification) on | | AM PST | | | | | 05/15/19 at 0900, Until | | | | | | | Discontinued | | | | | | + +-------+ +-------+---+---+ +-------+ +-------+---+---+ | Given | 05/17/20 | 10 mg | | | | | 19 8:10 | | | | | | AM PST | | | | +-------+ +-------+---+---+ | Given | 05/16/20 | 10 mg | | | | | 19 9:56 | | | | | | AM PST | | | | +-------+ +-------+---+---+ +---+---+ | | | +---+---+ + +-------+ +-------+---+---+ | predniSONE (DELTASONE) tablet | Given | 05/14/20 | 20 mg | | | | 20 mg 20 mg, oral, DAILY, First | | 19 9:35 | | | | | dose on Thu05/10/19 at 0900, | | AM PST | | | | | Until Discontinued | | | | | | + +-------+ +-------+---+---+ +-------+ +-------+---+---+ | Given | 05/13/20 | 20 mg | | | | | 19 10:28 | | | | | | AM PST | | | | +-------+ +-------+---+---+ | Given | 05/12/20 | 20 mg | | | | | 19 8:12 | | | | | | AM PST | | | | +-------+ +-------+---+---+ + +---+ | | | + +---+ | predniSONE (DELTASONE) tablet 5 | | | mg 5 mg, oral, DAILY, First | | | dose (after last modification) on | | | Cheryl 05/19/19 at 0900, Until | | | Discontinued | | + +---+ | | | + +---+ | prochlorperazine (COMPAZINE) | | | injection 5-10 mg 5-10 mg, | | | intravenous, EVERY 6 HOURS | | | NEEDED, Starting Thu04/15/19 at | | | 1528, Until Thu05/18/19 at 2315, | | | give as first line agent for | | | acute or delayed nausea/vomiting | | + +---+ | | | + +---+ + +-------+ +-------+---+---+ | prochlorperazine (COMPAZINE) | Given | 04/18/20 | 10 mg | | | | tablet 10 mg 10 mg, oral, EVERY | | 19 10:30 | | | | | 6 HOURS, 12 doses, First dose on | | AM PDT | | | | | 04/15/19 at 1700, Last dose | | | | | | | on 04/18/19 at 1000 | | | | | | + +-------+ +-------+---+---+ +-------+ +-------+---+---+ | Given | 04/18/20 | 10 mg | | | | | 19 4:13 | | | | | | AM PDT | | | | +-------+ +-------+---+---+ | Given | 04/17/20 | 10 mg | | | | | 19 9:31 | | | | | | PM PDT | | | | +-------+ +-------+---+---+ +---+---+ | | | +---+---+ + +-------+ +------+---+---+ | prochlorperazine (COMPAZINE) | Given | 05/18/20 | 5 mg | | | | tablet 5 mg 5 mg, oral, BEFORE | | 19 4:41 | | | | | MEALS, First dose on Thu05/13/19 | | PM PST | | | | | at 1700, Until Discontinued | | | | | | + +-------+ +------+---+---+ +-------+ +------+---+---+ | Given | 05/18/20 | 5 mg | | | | | 19 11:33 | | | | | | AM PST | | | | +-------+ +------+---+---+ | Given | 05/18/20 | 5 mg | | | | | 19 7:36 | | | | | | AM PST | | | | +-------+ +------+---+---+ +---+---+ | | | +---+---+ + +-------+ +------+---+---+ | prochlorperazine (COMPAZINE) | Given | 05/17/20 | 5 mg | | | | tablet 5-10 mg 5-10 mg, oral, | | 19 9:53 | | | | | EVERY 6 HOURS NEEDED, Starting | | AM PST | | | | | Thu04/15/19 at 1528, Until Wed | | | | | | | 05/18/19 at 2315, give as first | | | | | | | line agent for acute or delayed | | | | | | | nausea/vomiting | | | | | | + +-------+ +------+---+---+ +-------+ +-------+---+---+ | Given | 05/15/20 | 5 mg | | | | | 19 8:02 | | | | | | PM PST | | | | +-------+ +-------+---+---+ | Given | 05/12/20 | 10 mg | | | | | 19 9:33 | | | | | | AM PST | | | | +-------+ +-------+---+---+ + +---+ | | | + +---+ | ramelteon (ROZEREM) tablet 8 mg | | | 8 mg, oral, AT BEDTIME | | | NEEDED, Starting Thu04/15/19 at | | | 1343, Until Thu05/18/19 at 2315, | | | insomnia | | + +---+ | | | + +---+ + +-------+ +---------+---+---+ | saliva substitute (MOUTH KOTE) | Given | 05/02/20 | 1 spray | | | | spray 1 spray 1 spray, oral, | | 19 4:30 | | | | | EVERY 1 HOUR NEEDED, Starting | | AM PST | | | | | 04/15/19 at 1343, Until Wed | | | | | | | 05/18/19 at 2315, dry mouth | | | | | | + +-------+ +---------+---+---+ +---+---+ | | | +---+---+ + +-------+ +---------+---+---+ | senna-docusate (SENOKOT S) | Given | 04/19/20 | 2 | | | | 8.6-50 mg 1-2 tablet 1-2 tablet, | | 19 10:20 | tablets | | | | oral, EVERY 12 HOURS NEEDED, | | AM PDT | | | | | Starting 04/15/19 at 1343, | | | | | | | Until 05/18/19 at 2315, | | | | | | | constipation | | | | | | + +-------+ +---------+---+---+ +-------+ + +---+---+ | Given | 04/18/20 | 2 | | | | | 19 6:21 | tablets | | | | | PM PDT | | | | +-------+ + +---+---+ | Given | 04/17/20 | 1 tablet | | | | | 19 9:34 | | | | | | AM PDT | | | | +-------+ + +---+---+ +---+---+ | | | +---+---+ + +-------+ +-------+---+---+ | simethicone chew (MYLICON) | Given | 05/01/20 | 80 mg | | | | tablet 80 mg 80 mg, oral, THREE | | 19 1:03 | | | | | TIMES DAILY NEEDED, Starting | | PM PST | | | | | 04/30/19 at 1739, Until Wed | | | | | | | 05/18/19 at 2315, bloating | | | | | | + +-------+ +-------+---+---+ +-------+ +-------+---+---+ | Given | 04/30/20 | 80 mg | | | | | 19 6:54 | | | | | | PM PDT | | | | +-------+ +-------+---+---+ + +---+ | | | + +---+ | sodium chloride (OCEAN) 0.65 % | | | nasal spray 2 spray 2 spray, | | | both nostrils, NEEDED, | | | Starting Thu04/29/19 at 1230, | | | Until Thu05/18/19 at 2315, dry | | | nose | | + +---+ | | | + +---+ + +---------+ + +-------+---+ | sodium chloride 0.9 % (NS) IV | New Bag | 04/15/20 | 2,000 mL | 500 | | | infusion 2,000 mL, intravenous, | | 19 10:56 | | mL/hr | | | ONCE, 1 dose, 04/15/19 at | | AM PDT | | | | | 1030 | | | | | | + +---------+ + +-------+---+ +---+---+ | | | +---+---+ + +---------+ + + +---+ | sodium chloride 0.9 % (NS) IV | New Bag | 04/17/20 | 75 mL/hr | 75 mL/hr | | | infusion 75 mL/hr, intravenous, | | 19 11:57 | | | | | CONTINUOUS, Starting 04/15/19 | | PM PDT | | | | | at 1530, Until 04/18/19 at | | | | | | | 1001 | | | | | | + +---------+ + + +---+ + + + + +---+ | Rate/Dose Verify | 04/17/20 | 75 mL/hr | 75 mL/hr | | | | 19 2:00 | | | | | | PM PDT | | | | + + + + +---+ | Rate/Dose Change | 04/17/20 | 75 mL/hr | 75 mL/hr | | | | 19 9:30 | | | | | | AM PDT | | | | + + + + +---+ +---+---+ | | | +---+---+ + +---------+ +-------+-------+---+ | sodium chloride 0.9 % (NS) IV | New Bag | 04/27/20 | 100 | 100 | | | infusion 100 mL/hr, intravenous, | | 19 10:16 | mL/hr | mL/hr | | | CONTINUOUS, Starting Mon | | PM PDT | | | | | 04/25/19 at 1715, Until Cheryl | | | | | | | 04/28/19 at 0911 | | | | | | + +---------+ +-------+-------+---+ + + +-------+-------+---+ | New Bag | 04/26/20 | 100 | 100 | | | | 19 5:03 | mL/hr | mL/hr | | | | PM PDT | | | | + + +-------+-------+---+ | Rate/Dose Verify | 04/26/20 | 100 | 100 | | | | 19 1:41 | mL/hr | mL/hr | | | | PM PDT | | | | + + +-------+-------+---+ +---+---+ | | | +---+---+ + +---------+ +--------+-------+---+ | sodium chloride 0.9 % (NS) IV | New Bag | 04/25/20 | 500 mL | 999 | | | infusion 500 mL, intravenous, | | 19 4:53 | | mL/hr | | | ONCE, 1 dose, 04/25/19 at | | PM PDT | | | | | 1715 | | | | | | + +---------+ +--------+-------+---+ +---+---+ | | | +---+---+ + +---------+ + +-------+---+ | sodium chloride 0.9 % (NS) IV | New Bag | 04/28/20 | 1,000 mL | 125 | | | infusion 1,000 mL, intravenous, | | 19 11:45 | | mL/hr | | | AT BEDTIME NEEDED, Starting | | PM PDT | | | | | Cheryl 04/28/19 at 0911, Until Wed | | | | | | | 05/18/19 at 2315, for PO inake | | | | | | | <2L by 2200 | | | | | | + +---------+ + +-------+---+ +---+---+ | | | +---+---+ + +---------+ +---------+ +---+ | sodium phosphate IV 30 mmol 30 | New Bag | 05/14/20 | 30 mmol | 65 mL/hr | | | mmol, intravenous, NEEDED, | | 19 4:57 | | | | | Starting 04/15/19 at 1348, | | AM PST | | | | | Until 05/18/19 at 2315, | | | | | | | Administer for sodium level less | | | | | | | than 148 mmol/L AND phosphate | | | | | | | level 1.6-2 mg/dL. | | | | | | + +---------+ +---------+ +---+ +---------+ +---------+---+---+ | New Bag | 05/13/20 | 30 mmol | | | | | 19 3:37 | | | | | | AM PST | | | | +---------+ +---------+---+---+ + +---+ | | | + +---+ | sodium phosphate IV 40 mmol 40 | | | mmol, intravenous, NEEDED, | | | Starting Thu04/15/19 at 1348, | | | Until Thu05/18/19 at 2315, | | | Administer for sodium level less | | | than 148 mmol/L AND phosphate | | | level less than or equal to 1.5 | | | mg/dL. | | + +---+ | | | + +---+ + +-------+ +--------+---+---+ | tacrolimus capsule 0.5 mg 0.5 | Given | 05/01/20 | 0.5 mg | | | | mg, oral, EVERY EVENING, First | | 19 8:00 | | | | | dose on Thu04/22/19 at 2100, | | PM PST | | | | | Until Discontinued | | | | | | + +-------+ +--------+---+---+ +-------+ +--------+---+---+ | Given | 04/30/20 | 0.5 mg | | | | | 19 8:00 | | | | | | PM PDT | | | | +-------+ +--------+---+---+ | Given | 04/29/20 | 0.5 mg | | | | | 19 7:52 | | | | | | PM PDT | | | | +-------+ +--------+---+---+ +---+---+ | | | +---+---+ + +-------+ +--------+---+---+ | tacrolimus capsule 0.5 mg 0.5 | Given | 05/05/20 | 0.5 mg | | | | mg, oral, TWICE DAILY, First dose | | 19 9:22 | | | | | (after last modification) on Mon | | AM PST | | | | | 05/02/19 at 2100, Until | | | | | | | Discontinued | | | | | | + +-------+ +--------+---+---+ +-------+ +--------+---+---+ | Given | 05/04/20 | 0.5 mg | | | | | 19 9:44 | | | | | | PM PST | | | | +-------+ +--------+---+---+ | Given | 05/04/20 | 0.5 mg | | | | | 19 10:39 | | | | | | AM PST | | | | +-------+ +--------+---+---+ +---+---+ | | | +---+---+ + +-------+ +--------+---+---+ | tacrolimus capsule 0.5 mg 0.5 | Given | 05/08/20 | 0.5 mg | | | | mg, oral, TWICE DAILY, First dose | | 19 8:30 | | | | | (after last modification) on Thu | | AM PST | | | | | 05/06/19 at 0900, Until | | | | | | | Discontinued | | | | | | + +-------+ +--------+---+---+ +-------+ +--------+---+---+ | Given | 05/07/20 | 0.5 mg | | | | | 19 9:19 | | | | | | PM PST | | | | +-------+ +--------+---+---+ | Given | 05/07/20 | 0.5 mg | | | | | 19 8:44 | | | | | | AM PST | | | | +-------+ +--------+---+---+ +---+---+ | | | +---+---+ + +-------+ +--------+---+---+ | tacrolimus capsule 0.5 mg 0.5 | Given | 05/10/20 | 0.5 mg | | | | mg, oral, EVERY EVENING, First | | 19 8:59 | | | | | dose (after last modification) on | | PM PST | | | | | 05/08/19 at 2100, Until | | | | | | | Discontinued | | | | | | + +-------+ +--------+---+---+ +-------+ +--------+---+---+ | Given | 05/09/20 | 0.5 mg | | | | | 19 8:12 | | | | | | PM PST | | | | +-------+ +--------+---+---+ | Given | 05/08/20 | 0.5 mg | | | | | 19 8:03 | | | | | | PM PST | | | | +-------+ +--------+---+---+ +---+---+ | | | +---+---+ + +-------+ +------+---+---+ | tacrolimus capsule 1 mg 1 mg, | Given | 05/02/20 | 1 mg | | | | oral, EVERY MORNING, First dose | | 19 8:23 | | | | | (after last modification) on Sat | | AM PST | | | | | 04/23/19 at 0900, Until | | | | | | | Discontinued | | | | | | + +-------+ +------+---+---+ +-------+ +------+---+---+ | Given | 05/01/20 | 1 mg | | | | | 19 9:08 | | | | | | AM PST | | | | +-------+ +------+---+---+ | Given | 04/30/20 | 1 mg | | | | | 19 8:55 | | | | | | AM PDT | | | | +-------+ +------+---+---+ +---+---+ | | | +---+---+ + +-------+ +------+---+---+ | tacrolimus capsule 1 mg 1 mg, | Given | 05/11/20 | 1 mg | | | | oral, EVERY MORNING, First dose | | 19 9:23 | | | | | on Thu05/09/19 at 0900, Until | | AM PST | | | | | Discontinued | | | | | | + +-------+ +------+---+---+ +-------+ +------+---+---+ | Given | 05/10/20 | 1 mg | | | | | 19 8:43 | | | | | | AM PST | | | | +-------+ +------+---+---+ | Given | 05/09/20 | 1 mg | | | | | 19 9:20 | | | | | | AM PST | | | | +-------+ +------+---+---+ +---+---+ | | | +---+---+ + +-------+ +------+---+---+ | tacrolimus capsule 1 mg 1 mg, | Given | 05/15/20 | 1 mg | | | | oral, TWICE DAILY, First dose | | 19 8:38 | | | | | (after last modification) on Thu | | AM PST | | | | | 05/11/19 at 2100, Until | | | | | | | Discontinued | | | | | | + +-------+ +------+---+---+ +-------+ +------+---+---+ | Given | 05/14/20 | 1 mg | | | | | 19 8:32 | | | | | | PM PST | | | | +-------+ +------+---+---+ | Given | 05/14/20 | 1 mg | | | | | 19 9:35 | | | | | | AM PST | | | | +-------+ +------+---+---+ +---+---+ | | | +---+---+ + +-------+ +------+---+---+ | tacrolimus capsule 1 mg 1 mg, | Given | 05/17/20 | 1 mg | | | | oral, EVERY EVENING, First dose | | 19 10:00 | | | | | on 05/15/19 at 2100, Until | | PM PST | | | | | Discontinued | | | | | | + +-------+ +------+---+---+ +-------+ +------+---+---+ | Given | 05/16/20 | 1 mg | | | | | 19 8:29 | | | | | | PM PST | | | | +-------+ +------+---+---+ | Given | 05/15/20 | 1 mg | | | | | 19 9:21 | | | | | | PM PST | | | | +-------+ +------+---+---+ +---+---+ | | | +---+---+ + +-------+ +--------+---+---+ | tacrolimus capsule 1.5 mg 1.5 | Given | 05/18/20 | 1.5 mg | | | | mg, oral, EVERY MORNING, First | | 19 9:04 | | | | | dose (after last modification) on | | AM PST | | | | | 05/16/19 at 0900, Until | | | | | | | Discontinued | | | | | | + +-------+ +--------+---+---+ +-------+ +--------+---+---+ | Given | 05/17/20 | 1.5 mg | | | | | 19 8:11 | | | | | | AM PST | | | | +-------+ +--------+---+---+ | Given | 05/16/20 | 1.5 mg | | | | | 19 9:56 | | | | | | AM PST | | | | +-------+ +--------+---+---+ +---+---+ | | | +---+---+ + +-------+ +------+---+---+ | tacrolimus capsule 2 mg 2 mg, | Given | 04/21/20 | 2 mg | | | | oral, TWICE DAILY, First dose | | 19 8:49 | | | | | (after last modification) on Tue | | PM PDT | | | | | 04/19/19 at 1000, Until | | | | | | | Discontinued | | | | | | + +-------+ +------+---+---+ +-------+ +------+---+---+ | Given | 04/21/20 | 2 mg | | | | | 19 9:26 | | | | | | AM PDT | | | | +-------+ +------+---+---+ | Given | 04/20/20 | 2 mg | | | | | 19 8:44 | | | | | | PM PDT | | | | +-------+ +------+---+---+ +---+---+ | | | +---+---+ + +-------+ +---+---+---+ | triamcinolone acetonide | Given | 05/18/20 | | | | | (KENALOG) 0.1 % ointment | | 19 9:12 | | | | | topical, TWICE DAILY, First dose | | AM PST | | | | | on Thu05/04/19 at 2100, Until | | | | | | | Discontinued | | | | | | + +-------+ +---+---+---+ +-------+ +---+---+---+ | Given | 05/17/20 | | | | | | 19 10:16 | | | | | | PM PST | | | | +-------+ +---+---+---+ | Given | 05/17/20 | | | | | | 19 8:12 | | | | | | AM PST | | | | +-------+ +---+---+---+ +---+---+ | | | +---+---+ + +-------+ + +---+---+ | triamterene-hydrochlorothiazide | Given | 05/18/20 | 1 tablet | | | | (MAXZIDE) 37.5-25 mg tablet 1 | | 19 9:03 | | | | | tablet 1 tablet, oral, DAILY, | | AM PST | | | | | First dose (after last reorder) | | | | | | | on Thu05/09/19 at 0900, Until | | | | | | | Discontinued | | | | | | + +-------+ + +---+---+ +-------+ + +---+---+ | Given | 05/17/20 | 1 tablet | | | | | 19 8:11 | | | | | | AM PST | | | | +-------+ + +---+---+ | Given | 05/16/20 | 1 tablet | | | | | 19 9:57 | | | | | | AM PST | | | | +-------+ + +---+---+ +---+---+ | | | +---+---+ + +-------+ +--------+---+---+ | ursodiol (ACTIGALL) tablet 250 | Given | 04/17/20 | 250 mg | | | | mg 250 mg, oral, THREE TIMES | | 19 9:31 | | | | | DAILY, First dose on Thu04/15/19 | | PM PDT | | | | | at 1600, Until Discontinued | | | | | | + +-------+ +--------+---+---+ +-------+ +--------+---+---+ | Given | 04/17/20 | 250 mg | | | | | 19 4:17 | | | | | | PM PDT | | | | +-------+ +--------+---+---+ | Given | 04/17/20 | 250 mg | | | | | 19 9:30 | | | | | | AM PDT | | | | +-------+ +--------+---+---+ +---+---+ | | | +---+---+ + +-------+ +--------+---+---+ | ursodiol (ACTIGALL) tablet 500 | Given | 05/18/20 | 500 mg | | | | mg 500 mg, oral, TWICE DAILY, | | 19 9:03 | | | | | First dose (after last | | AM PST | | | | | modification) on 04/18/19 at | | | | | | | 1015, Until Discontinued | | | | | | + +-------+ +--------+---+---+ +-------+ +--------+---+---+ | Given | 05/17/20 | 500 mg | | | | | 19 10:06 | | | | | | PM PST | | | | +-------+ +--------+---+---+ | Given | 05/17/20 | 500 mg | | | | | 19 8:10 | | | | | | AM PST | | | | +-------+ +--------+---+---+ +---+---+ | | | +---+---+ + +-------+ +--------+---+---+ | valACYclovir (VALTREX) tablet | Given | 05/18/20 | 500 mg | | | | 500 mg 500 mg, oral, TWICE | | 19 9:03 | | | | | DAILY, First dose on Thu04/15/19 | | AM PST | | | | | at 2100, Until Discontinued | | | | | | + +-------+ +--------+---+---+ +-------+ +--------+---+---+ | Given | 05/17/20 | 500 mg | | | | | 19 10:05 | | | | | | PM PST | | | | +-------+ +--------+---+---+ | Given | 05/17/20 | 500 mg | | | | | 19 8:10 | | | | | | AM PST | | | | +-------+ +--------+---+---+ +---+---+ | | | +---+---+ documented in this encounter
--- OUTSIDE RECORDS SUMMARY | ~2020-03-12 | XMS | Encounter Summary ---
Demographics + + + | Address | [address] | | | [place] [address] | + + + | Home Phone | | + + + | Preferred Language | Unknown | + + + | Marital Status | Single | + + + | Amish Affiliation | NRP | + + + [...] Team Providers + +------+ + | Care Application Development Director Name | Role | Phone | + +------+ + | Meredith Sanchez | PCP | | + +------+ + Encounter Details +--------+ + + + + | Date | Type | Department | Care Team | Description | +--------+ + + + + | 05/03/ | Paleontology Teacher | [facility] | | | 2019 | | Hematologic | [facility] [address] | | | | | Malignancies at | [facility] | | | | | [facility] | [place], [place] | | | | | [address] | [address] | | | | | Loop Mailcode: | [phone] | | | | | [id number] | | | | | | [place], | | | | | | [place] [address] | | | | | | [phone] | | | +--------+ + + + [...]
--- OUTSIDE RECORDS SUMMARY | ~2020-03-12 | XMS | Encounter Summary ---
Demographics + + + | Address | [address] | | | [place] [address] | + + + | Home Phone [...] Team Providers + +------+ + | Care Developer Relations Manager Name | Role | Phone | [...] | | | | | (HCC) | [place], [place] | Healing, | | | | | Procedures | [address] | [address] | | | | | [place] | Phone: | [place], [place] | | | | | OFFICE/OUTPT | [phone] | [address] | | | | | | Fax: | Phone: | | | | | VISIT,EST,LE | [phone] | [phone] | | | | | VL IV CO | | Fax: | | | | | EST PATIENT | | [phone] | | | | | LEVEL V | | | +--------+--------+ + + + + Encounter Details +--------+ + + + + | Date | Type | Department | Care Team | Description | +--------+ + + + + | 07/21/ | Hospital | [facility] | A, [address] | | | 2020 | Encounter | Clinics at S | [facility] [place], | | | | | [address] | [place] [address] | | | | | [facility] | | | | [facility], | | | | | | [address] | | | | | | [place], [place] | | | | | | [address] | | | | | | [phone] | | | +--------+ + + + [...] + + + | Blood Pressure | 168/75 | 07/21/2019 9:48 AM | | | | | PST | | + + + + + | Pulse | 73 | 07/21/2019 9:48 AM | | | | | PST | | + + + + + | Temperature | 36.8 C (98.3 F) | 07/21/2019 9:48 AM | | | | | PST | | + + + + + | Respiratory Rate | 14 | 07/21/2019 9:48 AM | | | | | PST | | + + + + + | Oxygen Saturation | 100% | 07/21/2019 9:48 AM | | | | | PST | | + + + + + | Inhaled Oxygen | - | - | | | Concentration | | | | + + + + + | Weight | 56.7 kg (125 lb) | 07/21/2019 9:48 AM | | | | | PST [...] encounter Progress Notes Emily Ariza RN - 07/21/2019 9:30 AM PSTAssessment Nona is a 53yo female with a history of MDS, 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 Fever/Chills/Infection: No SOB / Cough: No Fatigue/Dizziness/Lightheaded: No Signs/Symptoms Bleeding: No Neuropathy: No Mucositis: No Nausea/Vomiting: No Appetite: "getting better." Diarrhea/Constipation: No PO Fluid Intake: 2L daily. Urinary Issues: No Rash/Skin/Edema: No Pain: No Lab Preliminary labs drawn by [facility] RN. Additional labs in [place] plan signed by Dr. De La Torre. Maddieshong accessed per protocol. Good blood return noted. Appropriate waste discarded. Lab s drawn and sent. Edong pulse flushed with 20 mL NS. Immunosuppressant Tacrolimus telephone encounter initiated by Camilla Varghese RN in [facility]. Dressing Change Groshong intact to left anterior [...] of 1.4. For infusion details, see MAR. Transfusion/Infusion No transfusions indicated per orders. Discharge Line care provided, see Flowsheet for details. Patient was instructed to check out at the f ront desk prior to leaving the clinic. Patient d/c d ambulatory in stable condition. Next appointment scheduled 07/21/19 at 2:30 pm. Emily Ariza RN documented in this encounter Miscellaneous Notes Addendum Note - Emily Ariza RN - 07/21/2019 9:30 AM PST Encounter addended by: Joo Ariza RN on: 07/21/2019 12:06 PM Actions taken: Treatment plan modified documented in this encounter Plan of Treatment Not on filedocumented as of this encounter Procedures + +--------+ + + + | Procedure Name | Priori | Date/Time | Associated Diagnosis | Comments | | | ty | | | | + +--------+ + + + | IGM, SERUM - OLP | Routin | 07/21/2019 | MDS | Results for this | | | e | 9:56 AM | (myelodysplastic | procedure are in the | | | | PST | syndrome) ([facility]) | results section. | + +--------+ + + + | IGG, SERUM - OLP | Routin | 07/21/2019 | MDS | Results for this | | | e | 9:56 AM | (myelodysplastic | procedure are in the | | | | PST | syndrome) ([facility]) | results section. | + +--------+ + + + | IGA, SERUM - OLP | Routin | 07/21/2019 | MDS | Results for this | | | e | 9:56 AM | (myelodysplastic | procedure are in the | | | | PST | syndrome) ([facility]) | results section. | + +--------+ + + + | CHIMERISM SORTED | Routin | 07/21/2019 | S/P cord blood | Results for this | | CELLS, DNA, BLOOD | e | 9:56 AM | transplantation | procedure are in the | | ([facility]) | | PST | | results section. | + +--------+ + + + | CHIMERISM SORTED | Routin | 07/21/2019 | S/P cord blood | Results for this | | CELLS, DNA, BLOOD | e | 9:56 AM | transplantation | procedure are in the | | | | PST | | results section. | + +--------+ + + + | LYMPHOCYTE | Routin | 07/21/2019 | MDS | Results for this | | ACTIVATION(LYMPH | e | 9:56 AM | (myelodysplastic | procedure are in the | | RECONSTITUTION/ACTIV | | PST | syndrome) ([facility]) | results section. | | ATE),BLOOD | | | | | + +--------+ + + + | IGM, SERUM | Routin | 07/21/2019 | MDS | Results for this | | | e | 9:56 AM | (myelodysplastic | procedure are in the | | | | PST | syndrome) ([facility]) | results section. | + +--------+ + + + | IGG, SERUM | Routin | 07/21/2019 | MDS | Results for this | | | e | 9:56 AM | (myelodysplastic | procedure are in the | | | | PST | syndrome) ([facility]) | results section. | + +--------+ + + + | IGA, SERUM | Routin | 07/21/2019 | MDS | Results for this | | | e | 9:56 AM | (myelodysplastic | procedure are in the | | | | PST | syndrome) ([facility]) | results section. | + +--------+ + + + documented in this encounter Results CHIMERISM SORTED CELLS, DNA, BLOOD ([facility]) (07/21/2019 9:56 AM PST) + + + + + [...] + + + | INTERPRETAT | Donor Name/ID: NMDP | | [facility] | | | ION | [id number] Gender: | | DIAGNOSTIC | | | | MaleDonor Name/ID: [facility]MDP | | | | | | [id number] | | LABORATORIE | | | | Gender: FemaleDate of | | S | | | | Transplant: | | | | | | 04/22/2019Chimerism | | | | | | Results (Sorted | | | | | | Cells):CD3+ T-cells: 0% | | | | | | Host; 100% Donor #2 | | | | | | ([facility] [id number]); No | | | | | | Detectable Donor #1 | | | | | | ([facility] [id number])CD33+ | | | | | | Myeloid cells: 0% Host; | | | | | | 100% Donor #2 ([facility] | | | | | | 2023-1786-1); No | | | | | | Detectable Donor #1 | | | | | | ([facility] 5746-5844-0)CD19+ | | | | | | B-cells: 0% Host; 100% | | | | | | Donor #2 ([facility] | | | | | | [id number]); No | | | | | | Detectable Donor #1 | | | | | | ([facility] [id number])CD56+ | | | | | | NK-cells: 0% Host; 100% | | | | | | Donor #2 ([facility] | | | | | | 9963-0498-1); No | | | | | | Detectable Donor #1 | | | | | | ([facility] [id number])Sorted | | | | | | Cell Purity (Reported | | | | | | by the [facility] Special | | | | | | Immunology | | | | | | Laboratory):CD3+ = | | | | | | 55,000 cells; 95% | | | | | | grcuTK65+ = 150,000 | | | | | | cells; 99% vzlgYW94+ = | | | | | | 13,000 cells; 96% | | | | | | sdkkCF76+ = 26,000 | | | | | | cells; 96% purePCR-based | | | | | | DNA profiling using | | | | | | Short Tandem Repeat | | | | | | (STR) markers on these | | | | | | sorted post-transplant | | | | | | specimens shows no | | | | | | detectable host cells in | | | | | | the T-cell (CD3+), | | | | | | myeloid cell (CD33+), | | | | | | B-cell (CD19+), or the | | | | | | NK-cell (CD56+) | | | | | | lineages. 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 | | | | | | Please note that minor | | | | | | cell populations of less | | | | | | than 5% (of any | | | | | | lineage) may not be | | | | | | detected (i.e., the | | | | | | low-level analytical | | | | | | detection sensitivity of | | | | | | the assay). If you | | | | | | have any questions | | | | | | regarding this report, | | | | | | please contact the lab | | | | | | at your convenience. | | | | + + + + + + | METHOD(S) | The laboratory received | | [facility] | | | | specimens from the [...] | | | | and CD56+ NK-cells were | | | | | | [...] | | | | | | loci [id number], [id number], | | | | | | E6V838, CSF1PO, [id number], | | | | | | THO1, C85G462, F31J210, | | | | | | G0V0607, K75H405, vWA, | | | | | | TPOX, D18S51, H9R607, | | | | | | FGA [...] | This test was developed | | [facility] | | | | and its performance | | DIAGNOSTIC | | | | characteristics | | | | | | determined by the [facility] | | LABORATORIE | | [...] | | | | | (CLIA). The [facility] | | | | | | Diagnostics | | | | | | Laboratories are fully | | | | | | licensed by the [facility] | | | | | [place] under CLIA and | | | | | | are accredited by the | | | | | | [employer] | | | | | | Pathologists (CAP). | | | | | | Welfare Investigator: | | | | | | Tayo Singletary, | | | | | | Isabela, Ph.DReviewed | | | | | | and electronically | | | | | | signed by ZURDO Harrison | | | | | | MD MENDEZ,PhD07/27/2019 | | | | | | 6:43 PM | | | | + + + + + + + + | Specimen | + + | Blood - Blood | | (substance) | + + + + + + + | Performing | Address | City/State/Zipcode | Phone Number | | Organization | | | | + + + + + | [facility] | [address] | [place] [address] | | | DIAGNOSTIC | [address] | | | | LABORATORIES | | | | + + + + + CHIMERISM SORTED CELLS, DNA, BLOOD (07/21/2019 9:56 [...] [facility] | [address] | [place] [address] | | | SERVICES, SPECIAL | [address] | | | | IMM + COAG | | | | + + + + + IGA, SERUM (07/21/2019 9:56 AM PST) + + + + + + | Component | Value | Ref Range | Performed | Pathologist | | | | | At | Signature | + + + + + + | IGA SERUM | 36 (L)Comment: REFERENCE | 68 - 408 mg/dL | [facility] | | | | INTERVAL: | | REG UNIV | | | | Immunoglobulin A Access | | PTH - INTFC | | | | complete set of age- | | | | | | and/or gender-specific | | | | | | reference intervals for | | | | | | this test in the [facility] | | | | | | Laboratory Test | | | | | | Directory | | | | | | ([employer]).Performed | | | | | | by [employer] | | | | | | [address], [facility],[place] | | | | | | [address] | | | | | | [phone].[employer]lab. | | | | | | [facility] hospital[facility]ef[facility] MD, | | | | | [...] [facility] | [address] | [place], [place] | | | UNIV PTH - INTFC | | [address] | | + + + + + IGG, SERUM (07/21/2019 9:56 AM PST) + + + + + + | Component | Value | Ref Range | Performed | Pathologist | | | | | At | Signature | + + + + + + | IGG SERUM | 638 (L)Comment: | [phone] | [facility] | | | | REFERENCE INTERVAL: | mg/dL | REG UNIV | | | | Immunoglobulin G Access | | PTH - INTFC | | | | complete set of age- | | | | | | and/or gender-specific | | | | | | reference intervals for | | | | | | this test in the [facility] | | | | | | Laboratory Test | | | | | | Directory | | | | | | ([employer]).Performed | | | | | | by [employer],[address] | | | | | | [address] [facility],[place] | | | | | | [address] | | | | | | [phone].[employer]. | | | | | | [facility], Zeferino Wolf MD, | | | [...] [facility] | [address] | [place], [place] | | | UNIV PTH - INTFC | | [address] | | + + + + + IGM, SERUM (07/21/2019 9:56 AM PST) + + + + + + | Component | Value | Ref Range | Performed | Pathologist | | | | | At | Signature | + + + + + + | IGM SERUM | 121Comment: REFERENCE | 35 - 263 mg/dL | [facility] | | | | INTERVAL: Immunoglobulin | | REG UNIV | | | | M Access complete set | | PTH - INTFC | | | | of age- and/or | | | | | | gender-specific | | | | | | reference intervals for | | | | | | this test in the [facility] | | | | | | Laboratory Test | | | | | | Directory | | | | | | ([employer]).Performed | | | | | | by [employer],[address] | | | | | | [address], [facility],[place] | | | | | | [address] | | | | | | [phone].[employer]. | | | | | | [facility], Zeferino Wolf MD, | | | [...] [facility] | [address] | [place], [place] | | | UNIV PTH - INTFC | | [address] | | + + + + + LYMPHOCYTE ACTIVATION(LYMPH RECONSTITUTION/ACTIVATE),BLOOD (07/21/2019 9:56 AM PST) + + + + + + | Component | Value | Ref Range | Performed | Pathologist | | | | | At | Signature | + + + + + + | T-CELLS(CD3 | 59.852 | 49.0-85.0 % of | [facility] | | | +)% | | Lymphs % of | LABORATORY | | | | | Lymphs | SERVICES, | | | | | | SPECIAL IMM | | | | | | + COAG | | + + + + + + | T-CELLS(CD3 | 1,078 | [phone] | [facility] | | | +)# | | Cells/uL | LABORATORY | | | | | | SERVICES, | | | | | | SPECIAL IMM | | | | | | + COAG | | + + + + + + | HELPER | 55.784 | 26.0-61.0 % of | [facility] | | | T-CELLS(CD3 | | Lymphs % of | LABORATORY | | | +CD4+)% | | Lymphs | SERVICES, | | | | | | SPECIAL IMM | | | | | | + COAG | | + + + + + + | HELPER | 1,005 | [phone] | [facility] | | | T-CELLS(CD3 | | Cells/uL | LABORATORY | | | +CD4+)# | | | SERVICES, | | | | | | SPECIAL IMM | | | | | | + COAG | | + + + + + + | CYTOTOXIC | 3.751 | 10.0-31.0 % of | [facility] | | | T-CELLS(CD3 | | Lymphs % of | LABORATORY | | | +CD8+)% | | Lymphs | SERVICES, | | | | | | SPECIAL IMM | | | | | | + COAG | | + + + + + + | CYTOTOXIC | 68 | 59 - 699 | [facility] | | | T-CELLS(CD3 | | Cells/uL | LABORATORY | | | +CD8+)# | | | SERVICES, | | | | | | SPECIAL IMM | | | | | | + COAG | | + + + + + + | CD4:CD8 | 14.872 (H) | 1.000 - 3.600 | [facility] | | | RATIO | | Ratio | LABORATORY | | | | | | SERVICES, | | | | | | SPECIAL IMM | | | | | | + COAG | | + + + + + + | T-REG(4+127 | 5.705 | <10.000 % of | [facility] | | | -[id number]+) | | Lymphs | LABORATORY | | | % | | | SERVICES, | | | | | | SPECIAL IMM | | | | | | + COAG | | + + + + + + | T-REG(4+127 | 103 | Cells/uL | [facility] | | | -[id number]+) | | | LABORATORY | | | # | | | SERVICES, | | | | | | SPECIAL IMM | | | | | | + COAG | | + + + + + + | DNT-CELLS(C | 0.106 | <6.000 % of | [facility] | [...] + + + | TCR AB | 99.647 (H) | 90.000 - 99.000 | [facility] | | | T(CD3+AB+)% | | % of T Cells | LABORATORY | | | OF T-CELLS | | | SERVICES, | | | | | | SPECIAL IMM | | | | | | + COAG | | + + + + + + | TCR AB | 1,074 | Cells/uL | [facility] | | | T(CD3+AB+)# | | | LABORATORY | | | | | | SERVICES, | | | | | | SPECIAL IMM | | | | | | + COAG | | + + + + + + | TCR GD | 0.265 | <10.000 % of T | [facility] | | | T(CD3+GD+)% | | Cells | LABORATORY | | | OF T-CELLS | | | SERVICES, | | | | | | SPECIAL IMM | | | | | | + COAG | | + + + + + + | TCR GD | 3 | Cells/uL | [facility] | | | T(CD3+GD+)# | | | LABORATORY | | | | | | SERVICES, | | | | | | SPECIAL IMM | | | | | | + COAG | | + + + + + + | MODIFIED | 0.106 | % of Lymphs | [facility] | | | T-CELLS(CD3 | | | LABORATORY | | | +CD19+)% | | | SERVICES, | | | | | | SPECIAL IMM | | | | | | + COAG | | + + + + + + | MODIFIED | 2 | Cells/uL | [facility] | [...] + + + + | CD8+ | 0.053 | % of Lymphs | [facility] | | | MODIFIED | | | LABORATORY | | | T-CELLS% | | | SERVICES, | | | | | | SPECIAL IMM | | | | | | + COAG | | + + + + + + | CD8+ | 1 | Cells/uL | [facility] | | | MODIFIED | | | LABORATORY | | | T-CELLS# | | | SERVICES, | | | | | | SPECIAL IMM | | | | | | + COAG | | + + + + + + | NA VE | 20.217 | % of T Cells | [facility] | | | T(CD3+CD45R | | | LABORATORY | | | A+)% OF | | | SERVICES, | | | T-CELLS | | | SPECIAL IMM | | | | | | + COAG | | + + + + + + | NA VE | 218 | Cells/uL | [facility] | | | T(CD3+CD45R | | | LABORATORY | | | A+)# | | | SERVICES, | | | | | | SPECIAL IMM | | | | | | + COAG | | + + + + + + | MEMORY | 71.178 | % of T Cells | [facility] | | | T(CD3+CD45R | | | LABORATORY | | | O+)% OF | | | SERVICES, | | | T-CELLS | | | SPECIAL IMM | | | | | | + COAG | | + + + + + + | MEMORY | 767 | Cells/uL | [facility] | | | T(CD3+CD45R | | | LABORATORY | | | O+)# | | | SERVICES, | | | | | | SPECIAL IMM | | | | | | + COAG | | + + + + + + | T-CELL | 1.788 | <10.000 % of | [facility] | | | ACTIVATION( | | Lymphs | LABORATORY | | | CD3+CD69+)% | | | SERVICES, | | | | | | SPECIAL IMM | | | | | | + COAG | | + + + + + + | T-CELL | 32 | Cells/uL | [facility] | | | ACTIVATION( | | | LABORATORY | | | CD3+CD69+)# | | | SERVICES, | | | | | | SPECIAL IMM | | | | | | + COAG | | + + + + + + | T-CELL | 7.290 | <10.000 % of | [facility] | | | ACTIVATION( | | Lymphs | LABORATORY | | | CD3+HLA-DR+ | | | SERVICES, | | | )% | | | SPECIAL IMM | | | | | | + COAG | | + + + + + + | T-CELL | 131 | Cells/uL | [facility] | | | ACTIVATION( | | | LABORATORY | | | CD3+HLA-DR+ | | | SERVICES, | | | )# | | | SPECIAL IMM | | | | | | + COAG | | + + + + + + | PD1 | 9.033 | <50.000 % of | [facility] | | | T-CELL(CD3+ | | Lymphs | LABORATORY | | | PD1+)% | | | SERVICES, | | | | | | SPECIAL IMM | | | | | | + COAG | | + + + + + + | PD1 | 163 | Cells/uL | [facility] | | | T-CELL(CD3+ | | | LABORATORY | | | PD1+)# | | | SERVICES, | | | | | | SPECIAL IMM | | | | | | + COAG | | + + + + + + | PD1 HELPER | 14.202 | % of T Cells | [facility] | | | T OF | | | LABORATORY | | | T-CELLS % | | | SERVICES, | | | | | | SPECIAL IMM | | | | | | + COAG | | + + + + + + | PD1 HELPER | 153 | Cells/uL | [facility] | | | T # | | | LABORATORY | | | | | | SERVICES, | | | | | | SPECIAL IMM | | | | | | + COAG | | + + + + + + | PD1 | 1.671 | % of T Cells | [facility] | | | CYTOTOXIC T | | | LABORATORY | | | OF T-CELLS | | | SERVICES, | | | % | | | SPECIAL IMM | | | | | | + COAG | | + + + + + + | PD1 | 18 | Cells/uL | [facility] | | | CYTOTOXIC T | | | LABORATORY | | | # | | | SERVICES, | | | | | | SPECIAL IMM | | | | | | + COAG | | + + + + + + | T-NK(CD3+CD | 0.277 | <8.000 % of | [facility] | | | 56+)% | | Lymphs | LABORATORY | | | | | | SERVICES, | | | | | | SPECIAL IMM | | | | | | + COAG | | + + + + + + | T-NK(CD3+CD | 5 | Cells/uL | [facility] | | | 56+)# | | | LABORATORY | | | | | | SERVICES, | | | | | | SPECIAL IMM | | | | | | + COAG | | + + + + + + | TOTAL | 9.977 | 5.000-28.000 % | [facility] | | | NK-CELLS(CD | | of Lymphs % of | LABORATORY | | | 3-CD56+)% | | Lymphs | SERVICES, | | | | | | SPECIAL IMM | | | | | | + COAG | | + + + + + + | TOTAL | 180 | 71 - 499 | [facility] | | | NK-CELLS(CD | | Cells/uL | LABORATORY | | | 3-CD56+)# | | | SERVICES, | | | | | | SPECIAL IMM | | | | | | + COAG | | + + + + + + | B-CELLS(CD1 | 20.139 | 4.000-17.000 % | [facility] | | | 9+)% | | of Lymphs % of | LABORATORY | | | | | Lymphs | SERVICES, | | | | | | SPECIAL IMM | | | | | | + COAG | | + + + + + + | B-CELLS(CD1 | 363 (H) | 32 - 341 | [facility] | | | 9+)# | | Cells/uL | LABORATORY | | | | | | SERVICES, | | | | | | SPECIAL IMM | | | | | | + COAG | | + + + + + + | IGD+27-NA | 90.138 (H) | 50.000 - 80.000 | [facility] | | | VE B-CELLS | | % of B Cells | LABORATORY | | | OF B-CELL% | | | SERVICES, | | | | | | SPECIAL IMM | | | | | | + COAG | | + + + + + + | IGD+27+NON- | 2.294 (L) | 5.000 - 21.000 | [facility] | | | SWITCHED B | | % of B Cells | LABORATORY | | | OF B CELL% | | | SERVICES, | | | | | | SPECIAL IMM | | | | | | + COAG | | + + + + + + | IGD-27+SWIT | 4.358 (L) | 5.000 - 24.000 | [facility] | | | CHED MEMORY | | % of B Cells | LABORATORY | | | B OF | | | SERVICES, | | | B-CELL% | | | SPECIAL IMM | | | | | | + COAG | | + + + + + + | B1 | 0.693 | <6.000 % of | [facility] | | | B-CELLS(CD5 | | Lymphs | LABORATORY | | | +CD19+)% | | | SERVICES, | | | | | | SPECIAL IMM | | | | | | + COAG | | + + + + + + | B1 | 12 | Cells/uL | [facility] | | | B-CELLS(CD5 | | | LABORATORY | | | +CD19+)# | | | SERVICES, | | | | | | SPECIAL IMM | | | | | | + COAG | | + + + + + + | KAPPA/LAMBD | 1.409 | <3.000 Ratio | [facility] | | | A RATIO | | | LABORATORY | | | | | | SERVICES, | | | | | | SPECIAL IMM | | | | | | + COAG | | + + + + + + | MYELOID | 66.161 | 50.0-70.0 % of | [facility] | | | CELLS(16+13 | | WBC % of WBC | LABORATORY | | | +)% | | | SERVICES, | | | | | | SPECIAL IMM | | | | | | + COAG | | + + + + + + | MYELOID | 5,928 | 1,800-7,700 | [facility] | | | CELLS(16+13 | | Cells/uL | LABORATORY | | | +)# | | | SERVICES, | | | | | | SPECIAL IMM | | | | | | + COAG | | + + + + + + | MONOCYTES(1 | 12.141 | 3.5-9.0 % of | [facility] | | | 4+13+)% | | WBC % of WBC | LABORATORY | | | | | | SERVICES, | | | | | | SPECIAL IMM | | | | | | + COAG | | + + + + + + | MONOCYTES(1 | 1,088 (H) | 100 - 900 | [facility] | | | 4+13+)# | | Cells/uL | LABORATORY | | | | | | SERVICES, | | | | | | SPECIAL IMM | | | | | | + COAG | | + + + + + + | MDCS % | 0.066 | <=2.000 % of | [facility] | | | | | WBC | LABORATORY | | | | | | SERVICES, | | | | | | SPECIAL IMM | | | | | | + COAG | | + + + + + + | MDCS # | 6 | 4-32 Cells/uL | [facility] | | | | | Cells/uL | LABORATORY | | | | | | SERVICES, | | | | | | SPECIAL IMM | | | | | | + COAG | | + + + + + + | PDCS % | 0.004 | <=2.000 % of | [facility] | | | | | WBC | LABORATORY | | | | | | SERVICES, | | | | | | SPECIAL IMM | | | | | | + COAG | | + + + + + + | PDCS # | 0 | 1-20 Cells u/L | [facility] | [...] + + | | [facility] | | Immunophenotyping and enumeration of lymphocyte subpopulations are | LABORATORY | | performed using following antibodies: CD3 CD4 CD5 | SERVICES, | | CD8 CD11c CD13 [id number] CD19 CD25 | SPECIAL IMM + | | CD27 CD56 CD45RA [id number] CD69 CD123 | COAG | | CD127 PD1(CD279) HLA-DR IgDTCR a/b TCR g/d [place] Lambda | | | (Analyte specific reagents are used in many laboratory tests necessary | | | for standard medical care. This test was developed and its | | | performance characteristics determined by [facility]. It has | | | not been cleared or approved by the [place] Food and Drug Administration | | | (FDA). FDA does not require this test to go through premarket FDA | | | review. This test is used for clinical purposes. It should not be | | | regarded as investigational or for research. The laboratory is | | | certified under the Clinical Laboratory Improvement Amendments (CLIA) | | | as qualified to perform high complexity clinical laboratory testing. | | | My electronic signature indicates that I have personally reviewed and | | | interpreted the flow cytometric data pertaining to this case. Reviewed | | | and electronically signed by Ngoc Negron MD,PhD07/23/2019 4:04 PM | | + + + + + + + + | Performing | Address | City/State/Zipcode | Phone Number | | Organization | | | | + + + + + | [facility] | [address] | [place] [address] | | | SERVICES, SPECIAL | JASON [...] in water IV | New Bag | 07/21/19 | 4 g | | | | (RTU) 4 g 4 g, intravenous, | | 20 10:07 | | | | | ONCE, 1 dose, Cheryl 07/21/19 at 1000 | | AM PST | | | | + +---------+ +------+------+------+ +---+---+ | | | +---+---+ documented in this encounter
--- OUTSIDE RECORDS SUMMARY | ~2020-03-12 | XMS | Encounter Summary ---
Demographics + + + | Address | [address] | | | [place] [address] | + + + | Home Phone [...] Providers + +------+ + | Care Superintendent Marine Name | Role | Phone | + +------+ + | Meredith Sanchez | PCP | | + +------+ + Reason for Visit + +--------+ + | Reason | Onset | Comments | | | Date | | + +--------+ + | Medication | 07/01/ | waiting for labs to return | | | 2020 | | + +--------+ + Encounter Details +--------+ + + + + | Date | Type | Department | Care Team | Description | +--------+ + + + + | 07/01/ | Telephone | [facility] | Sejal De La Torre | Medication (waiting | | 2019 | | Clinics at S | N, DO [address] | for labs to return) | | | | [facility] [address] | [facility] | | | | | [facility] for | [place], [place] | | | | | Health and Healing, | [address] | | | | | [address] | [phone] | | | | | [place], [place] | | | | | | [address] | | | | | | [phone] | | | +--------+ + + + [...] Telephone Encounter - Tayo Osborne MA - 07/04/2019 10:29 AM PSTSpoke with Nona and she understood the dose up of no change and repeated her current dose to me. elephone Encounter - Jarad Vargas MA - 07/02/2019 6:03 PM PSTFormatting of this note might be different from the orig inal. Result Follow-up CSA level: Lab Results Component Value Date FK506 07/01/2019 Comment: See Scanned Report. Nona's dose will remain the same per Sejal De La Torre DO. A message was left with Nona to return this phone call by 6pm today. elephone Encounte r - Alyson Gonzalez MA - 07/02/2019 3:22 PM PST07/02/2019 15:24 Called PT- re: labs delayed- due to lab down and were sent to [facility]. Susan Gonzalez CMA elephone Encounter - Alyson Gonzalez MA - 07/02/2019 3:10 PM PST15:07 IST report. Checked Labs: 09:35 in process 11:17 in process 12:13 in process 14:29 in process 15:00 Reached out to charge nurse on duty, CARRIE Brennan. Contacted lab- lab is down and labs were se nt to [facility]. Alyson Gonzalez CMA elephone Encounter - Savanna Delcid RN - 07/01/2019 1:26 PM PSTInitial Assessment Nona Hopper's salesperson shoes for today is patient, Nona Hopper, and her conta ct phone number for today 06/24 is: [phone]. Nona has been advised of when to [...] adjustment. Nona took her last dose at 930pm (time) on 06/30/19 (date). documented in this encoun ter Plan of Treatment Not on filedocumented as of this encounter Visit Diagnoses Not on filedocumented in this encounter"
--- OUTSIDE RECORDS SUMMARY | ~2020-03-12 | XMS | Encounter Summary ---
Demographics + + + | Address | [address] | | | [place] [address] | + + + | Home Phone [...] Team Providers + +------+ + | Care Hearing Healthcare Practitioner Name | Role | Phone | + +------+ + | Meredith Sanchez | PCP | | + +------+ + Encounter Details +--------+ + + + + | Date | Type | Department | Care Team | Description | +--------+ + + + + | 08/22/ | Pharmacy | [facility] | | | | 2020 | Visit | [address] [facility] | | | | | | [facility] [address] | | | | | | [place] [address] | | | | | | [phone] | | | +--------+ + + + [...]
--- OUTSIDE RECORDS SUMMARY | ~2020-03-12 | XMS | Encounter Summary ---
Demographics + + + | Address | [address] | | | [place] [address] | + + + | Home Phone [...] Providers + +------+ + | Care Human Resources Department Supervisor Name | Role | Phone | + +------+ + | Meredith Sanchez | PCP | | + +------+ + Encounter Details +--------+ + + + + | Date | Type | Department | Care Team | Description | +--------+ + + + + | 07/31/ | Pharmacy | Pharmacy @ [facility] | | | | 2019 | Visit | [address] | | | | | | Reji Callahan Mailcode: | | | | | | [facility] | | | | | | and Healing, | | | | | | [address] | | | | | | [place], [place] | | | | | | [address] | | | +--------+ + + + [...]
--- OUTSIDE RECORDS SUMMARY | ~2020-03-12 | XMS | Encounter Summary ---
Demographics + + + | Address | [address] | | | [place] [address] | + + + | Home Phone [...] Providers + +------+ + | Care Supervisor Quilting Name | Role | Phone | + +------+ + | Meredith Sanchez | PCP | | + +------+ + Reason for Visit + +--------+ + | Reason | Onset | Comments | | | Date | | + +--------+ + | Medication | 08/31/ | [facility] [place] | | Adjustment | 2020 | | + +--------+ + Encounter Details +--------+ + + + + | Date | Type | Department | Care Team | Description | +--------+ + + + + | 08/31/ | Telephone | [facility] | Katelyn Corneliusn | Medication | | 2020 | | Clinics at S | M, MANAGER PRICING [address] | Adjustment (IST | | | | [facility] [address] | [place]) | | | | [facility] for | [place], [place] | | | | | Health and Healing, | [address] | | | | | [address] | [phone] | | | | | [place], [place] | | | | | | [address] | | | | | | [phone] | | | +--------+ + + + [...] Telephone Encounter - Tayo Osborne MA - 09/01/2019 3:26 PM PSTFormatting of this no te might be different from the original. Result Follow-up CSA level: Lab Results Component Value Date FK506 8.09/01/2019 Nona's dose will remain the same per Cathy Cornelius NP. Result Follow-up CSA level: Lab Results Component Value Date FK506 8.09/01/2019 Nona's dose will remain the same per Cathy Cornelius NP. Patient and/or their caregiver verified they are taking 0.5 mg once daily except on // t lola 0.5 mg twice daily. 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 Nona has been advised of when to expect a confirmation call regarding any necessary dose adjustments: yes. Nona was asked to contact this clinic if she has not received a confirma tion call within 24 hours. Nona reports she currently takes Tacrolimus 0.5 mg once daily except on // 0.5takes tw ice daily. This is the correct dose according to her most recent dose adjustment. Nona took her last dose at 2029 (time) on 08/31/19 (date). documented in this encounter Plan of Treatment Not on filedocumented as of this encounter Visit Diagnoses Not on filedocumented in this encounter"
--- OUTSIDE RECORDS SUMMARY | ~2020-03-12 | XMS | Encounter Summary ---
Demographics + + + | Address | [address] | | | [place] [address] | + + + | Home Phone | | + + + | Preferred Language | Unknown | + + + | Marital Status | Single | + + + | Mormonism Affiliation | NRP | + + + [...] Team Providers + +------+ + | Care Sewage Plant Supervisor Name | Role | Phone | + +------+ + | Meredith Sanchez | PCP | | + +------+ + Reason for Visit + + + | Reason | Comments | + + + | Medication | | | Administration | | + + + | Infusion [...] | | | | | syndrome) | [facility] | Health and | | | | | (HCC) | [place], [place] | Healing, | | | | | Procedures | [address] | [address] | | | | | [place] | Phone: | [place], [place] | | | | | OFFICE/OUTPT | [phone] | [address] | | | | | | Fax: | Phone: | | | | | VISIT,EST,LE | [phone] | [phone] | | | | | VL IV [place] | | Fax: | | | | | EST PATIENT | | [phone] | | | | | LEVEL V | | | +--------+--------+ + + + + Encounter Details +--------+ + + + + | Date | Type | Department | Care Team | Description | +--------+ + + + + | 07/18/ | Hospital | [facility] | | | | 2020 | Encounter | Clinics at S | | | | | | [facility] [address] | | | | | | [facility] for | | | | | | Health and Healing, | | | | | | [address] | | | | | | [place], [place] | | | | | | [address] | | | | | | [phone] | | | +--------+ + + + [...] | Blood Pressure | 117/65 | 07/18/2019 1:35 PM | | | | | PST | | + + + + + | Pulse | 87 | 07/18/2019 1:35 PM | | | | | PST | | + + + + + | Temperature | 36.7 C (98.1 F) | 07/18/2019 1:35 PM | | | | | PST | | + + + + + | Respiratory Rate | 16 | 07/18/2019 1:35 PM | | | | | PST | | + + + + + | Oxygen Saturation | 100% | 07/18/2019 1:35 PM | | | | | PST | | + + + + + | Inhaled Oxygen | - | - | | | Concentration | | | | + + + + + | Weight | 55.1 kg (121 lb 7.6 | 07/18/2019 1:35 PM | | | | oz) | PST | | + + + + + | Height | - | - | | + + + + + | Body Mass Index | 22.41 | 07/08/2019 4:32 PM | | | [...] documented as of this encounter Progress Notes Anuradha Leal RN - 07/18/2019 12:51 PM PSTPatient ambulated independently into clinic with caregiver. Hx of MDS. In clinic for lab draw and supportive care. Conditioning regimen: FluCyTBI Date of transplant: 04/22/2019 Nursing Assessment Pain: Denies Fever or chills: Denies Fatigue or sleep disturbance: Denies Dizziness: Denies Dyspnea, cough: Denies Signs of bleeding: Denies Nausea, vomiting or loss of appetite: Denies Fluid intake: States adequate fluid intake Diarrhea or constipation: Denies Edema: Denies Rash: Denies Vascular Access: Labs drawn in fast track. Dressing is clean, dry and intact. Due to be changed 07/21. Per infusion plan: Magnesium Sulfate 8 gm in 200 mL NS infused over 4 hours per supportive care orders for a m agnesium level of 1.2. For infusion details, see MAR. Potassium chloride 40 meq PO per supportive care orders for a potassium level of 3.2. For administration details, see MAR. Education: Reviewed next appt time with pt and reminded to check out at desk operator upon discharge. Ed ucated pt to contact clinic if experiencing temp greater than 100.4, chills, s/s of infectio n or bleeding, inability to swallow or keep down liquids or pills. Pt verbalized understand ing. Patient ambulated independently out of clinic with caregiver, who is also class b truck driver. documented in this encounter Plan of Treatment [...] in water IV | New Bag | 07/18/19 | 2 g | | | | (RTU) 2 g 2 g, intravenous, | | 20 1:48 | | | | | ONCE, 1 dose, 07/18/19 at 1345 | | PM PST | | | | + +---------+ +------+------+------+ +---+---+ | | | +---+---+ + +---------+ +-----+---+---+ | magnesium sulfate in water IV | New Bag | 07/18/19 | 2 g | | | | (RTU) 2 g 2 g, intravenous, | | 20 4:22 | | | | | ONCE, 1 dose, 07/18/19 at 1545 | | PM PST | | | | + +---------+ +-----+---+---+ +---+---+ | | | +---+---+ + +---------+ +-----+---+---+ | magnesium sulfate in water IV | New Bag | 07/18/19 | 4 g | | | | (RTU) 4 g 4 g, intravenous, | | 20 2:31 | | | | | ONCE, 1 dose, 07/18/19 at 1345 | | PM PST | | | | + +---------+ +-----+---+---+ +---+---+ | | | +---+---+ + +-------+ +--------+---+---+ | potassium chloride SR | Given | 07/18/19 | 40 mEq | | | | (KAYLEN) tablet 40 mEq 40 mEq, | | 20 2:31 | | | | | oral, ONCE, 1 dose, 07/18/19 | | PM PST | | | | | at 1400 | | | | | | + +-------+ +--------+---+---+ +---+---+ | | | +---+---+ documented in this encounter"
[~2020-03-12 17:26] MED LIST changes: +ACYCLOVIR400 MG PO; +CIPRO500 MG PO; +DAPSONE100 MG PO; +ELIQUIS5 MG PO; +ERYTHROMYCIN1 GM OP; +ESCITALOPRAM OX20 MG PO; +FAMOTIDINE20 MG PO; +FLUCONAZOLE200 MG PO; +KLOR-CON 1010 MEQ; +LEVOFLOXACIN500 MG PO; +LEXAPRO20 MG PO; +MG-PLUS-PROTEI133 MG PO; +NOXAFIL100 MG PO; +OMEPRAZOLE40 MG PO; +ONDANSETRON ODT8 MG PO; +PREDNISONE10 MG PO; +ROPINIROLE HCL0.5 MG; +TACROLIMUS0.5 MG PO; +TRIAMCINOLONE A15 G1 TOP; +VALACYCLOVIR500 MG PO; +VIDAZA100 MG SUB-Q; +VORICONAZOLE IV
--- OUTSIDE RECORDS SUMMARY | 2020-03-12 17:30 | XMS ---
PreManage Notification: ANALY [employer] Dr[employer] Helper Events No recent Security Events currently on file CRITERIA MET - History of Sepsis Dx CARE PROVIDERS There are no care providers on record at this time. [facility] has no Care Guidelines for this patient. ENicoleDNicole VISIT COUNT (12 MO.) 1 [facility] 1 YESSY Gonzalez TOTAL 2 NOTE: Visits indicate total known visits. ED/C VISIT TRACKING (12 MO.) 03/12/2020 17:27 [facility] [place] TYPE: Emergency COMPLAINT: - SOB, SWELLING IN ANKLES FEET 07/07/2019 16:53 [facility] TYPE: Emergency DIAGNOSES: 70197. Referral 29726. Other fpc (current) drug therapy 48469. Diarrhea, unspecified 91761. Generalized abdominal pain INPATIENT VISIT TRACKING (12 MO.) 07/07/2019 16:53 [facility] TYPE: Hematology DIAGNOSES: 41383. Other nonspecific abnormal finding of lung field 28580. Other meterman (current) drug therapy 48951. Generalized abdominal pain 61696. Diarrhea, unspecified 04/15/2019 10:00 [facility] TYPE: Hematology DIAGNOSES: 31716. MDS 08038. Myelodysplastic syndrome, unspecified [email or web address]
[2020-03-12] MEDS ORDERED: COREG CR40 MG PO (17:52)
[2020-03-12] MEDS ORDERED: LOSARTAN POTASS25 MG PO (17:53)
[2020-03-12] MEDS ORDERED: K-TAB ER20 MEQ PO (18:56)
[2020-03-12] MEDS ORDERED: PREDNISONE20 MG PO (18:56)
[2020-03-12] MEDS ORDERED: FUROSEMIDE20 MG PO (18:56)
--- NOTE | 2020-03-13 14:02 | EKG ---
[facility] [address] [place], [place] [address] Signed Normal sinus rhythm Normal ECG No previous ECGs available Confirmed by TERENCE CASTILLO DO ([id number]) on 03/13/2020 2:02:22 PM Electronically Signed By: TERENCE CASTILLO DO 03/13/20 1402 PATIENT NAME: ANALY CAMARILLO LOPEZ Electrocardiogram DATE OF : 63 PHYSICIAN: TERENCE CASTILLO DO REPORT #: [id number] REPORT IS CONFIDENTIAL AND NOT TO BE RELEASED WITHOUT AUTHORIZATION
== END 2020-03-12 19:58 | disposition home or self-care (01) ==
LOC: ED 17:26
DX: J45.901 Unspecified asthma with (acute) exacerbation (principal); R79.89 Other specified abnormal findings of blood chemistry; R60.0 Localized edema; I10 Essential (primary) hypertension; Z87.891 Personal history of nicotine dependence; Z88.2 Allergy status to sulfonamides; Z88.1 Allergy status to other antibiotic agents; Z79.52 Long term (current) use of systemic steroids; Z79.899 Other long term (current) drug therapy
CPT/HCPCS: 71045; 80053; 83735; 83880; 84484; 85025; 93005; 93010; 96374; 99285-25; C9803; J1940; J7512

== ENCOUNTER 2021-04-28 04:40 | Emergency (ER) | payer MEDICARE, OTHER ==
[~2021-04-28] VITALS: Ht 157.5 cm; Wt 72.6 kg
[~2021-04-28 04:40] MED LIST changes: +COREG CR40 MG PO; +FUROSEMIDE20 MG PO; +K-TAB ER20 MEQ PO; +LOSARTAN POTASS25 MG PO; +PREDNISONE20 MG PO
[2021-04-28] MEDS ORDERED: DIFLUCAN50 MG PO (05:08)
[2021-04-28] MEDS ORDERED: JAKAFI5 MG PO (05:08)
[2021-04-28] MEDS ORDERED: ACYCLOVIR400 MG PO (05:08)
[2021-04-28] MEDS ORDERED: CATAPRES-TTS 21 EACH TD (05:09)
[2021-04-28] MEDS ORDERED: DORYX50 MG PO (05:11)
== END 2021-04-28 07:30 | disposition home or self-care (01) ==
LOC: ED 04:40
DX: R51.9 Headache, unspecified (principal); F19.239 Other psychoactive substance dependence with withdrawal, unspecified; I10 Essential (primary) hypertension; Z87.891 Personal history of nicotine dependence; Z88.2 Allergy status to sulfonamides; Z88.8 Allergy status to other drugs, medicaments and biological substances; Z79.899 Other long term (current) drug therapy; Z79.52 Long term (current) use of systemic steroids
CPT/HCPCS: 70450; 96374; 96375; 99284-25; J1100; J1200; J1885; J2060; J2765

== ENCOUNTER 2021-06-12 14:37 | Inpatient (IN) | payer MEDICARE, OTHER ==
[~2021-06-12] VITALS: Ht 157.5 cm; Wt 72.0 kg
[~2021-06-12 14:37] MED LIST changes: +CATAPRES-TTS 21 EACH TD; +DIFLUCAN50 MG PO; +DORYX50 MG PO; +JAKAFI5 MG PO; +VALTREX500 MG PO
[2021-06-12] MEDS ORDERED: AMOX TR-K CLV1 EAC1 PO (16:09)
[2021-06-12] MEDS ORDERED: ARIPIPRAZOLE5 MG PO (16:09)
[2021-06-12] MEDS ORDERED: FLOVENT HFA12 G1 INH (16:11)
[2021-06-12] MEDS ORDERED: AZITHROMYCIN250 MG PO (16:11)
[2021-06-12] MEDS ORDERED: MONTELUKAST SOD10 MG PO (16:11)
--- NOTE | 2021-06-12 23:40 | NUR ---
TELEPHONE REPORT RECEIVED FROM ED RN MIKE, ALL QUESTIONS ANSWERED, AWAITING pt's ARRIVAL TO FLOOR.
--- NOTE | 2021-06-13 00:01 | NUR ---
pt ARRIVED TO FLOOR, MANAGER MULTICULTURALCARRIE STOUT COMPLETING INTIAL ADMIT. CALL LIGHT IN REACH. pt RESTING IN BED AND ORIENTED TO ROOM.
--- NOTE | 2021-06-13 01:00 | NUR ---
ASSESSMENT COMPLETE, SCHEDULED EVENING MEDS GIVEN ALONG WITH PRN TYLENOL AND COUGH MEDICATION, SEE EMAR. pt A/OX4, VSS. SBP ELEVATED BUT WITHIN PARAMETERS, pt REPORTS SHE ALREADY HAS A 0.3MG/DAY CLONIDINE PATCH IN PLACE, UNABLE TO VISUALIZE D/T ADHESIVE COVERING OVER PATCH. 0.2MG/DAY CLONIDINE PATCH HELD pt REPORTS SHE PLACED THE 0.3MG/DAY PATCH ON THURSDAY AND IT'S TO BE CHANGED Q7 DAYS. DISCUSSED WITH MARINE ERECTORCARRIE STOUT, PER MARINE ERECTOR LEAVE CURRENT PATCH IN PLACE AND WILL DISCUSS WITH MD IN AM. IV SITE WNL, SALINE LOCKED. BSC AT BEDSIDE. CALL LIGHT IN REACH.
--- NOTE | 2021-06-13 03:07 | NUR ---
pt RESTING IN BED WITH EYES CLOSED, RR EVEN AND UNLABORED. NO DISTRESS NOTED. HOB ELEVATED, pt APPEARS COMFORTABLE AND RELAXED. NO DISTRESS NOTED, CALL LIGHT IN REACH.
--- NOTE | 2021-06-13 05:16 | NUR ---
ASSESSMENT COMPLETE, NO ACUTE CHANGES. pt ON RA, SPO2 MID 90'S, HR 80'S. pt DENIES PAIN AND NAUSEA, BOWEL TONES ACTIVE. IV SITE REMAINS WNL, SALINE LOCKED. NO FURTHER NEEDS, CALL LIGHT IN REACH. pt DENEIS NEED TO VOID AT THIS TIME.
--- NOTE | 2021-06-13 07:45 | NUR ---
DR BRAMBILA MADE AWARE OF pt WEARING CLONIDINE 0.3MG/DAY PATCH FROM HOME. AWARE THAT THIS RN WAS UNABLE TO VISUALIZE PATCH D/T CURRENT DRESSING. NO NEW ORDERS RECEIVED AT THIS TIME.
--- NOTE | 2021-06-13 09:30 | NUR ---
REPORT RECEIVED FROM NIGHT RN AND PT. CARE RESUMED. PT. IS ALERT AND ORIENTED. REPORTS CHEST PAIN WITH COUGHING. ADMIN. ROBITUSSIN. EXP. WHEEZES PRESENT BILAT. UPPER LUNGS. CRACKLES IN BASES. PT. ON ROOM AIR AND O2 SAT. IS 93%. DISCUSSED POC AND MEDS. LEFT RESTING WITH CALL LIGHT IN REACH.
[2021-06-13] MEDS ORDERED: DOXYCYCLINE HY100 MG PO (10:22)
[2021-06-13] MEDS ORDERED: CLONIDINE1 EAC2 TD (10:23)
[2021-06-13] MEDS ORDERED: EUTHYROX25 MCG PO (10:24)
[2021-06-13] MEDS ORDERED: CHLORTHALIDONE25 MG PO (10:26)
[2021-06-13] MEDS ORDERED: FLUCONAZOLE200 MG PO (10:27)
[2021-06-13] MEDS ORDERED: SPIRONOLACTONE25 MG PO (10:27)
[2021-06-13] MEDS ORDERED: VENTOLIN HFA18 GM INH (10:28)
[2021-06-13] MEDS ORDERED: ROSUVASTATIN CA20 MG PO (10:28)
[2021-06-13] MEDS ORDERED: CARVEDILOL25 MG PO (10:30)
--- NOTE | 2021-06-13 11:22 | NUR ---
Patient is in bed with call light in reach.
[2021-06-13] MEDS ORDERED: ADULT ASPIRIN R81 MG PO (11:54)
[2021-06-13] MEDS ORDERED: PRILOSEC OTC20 MG PO (11:57)
[2021-06-13] MEDS ORDERED: VITAMIN D325 MCG PO (11:57)
--- NOTE | 2021-06-13 11:58 | NUR ---
MED REC COMPLETE
--- NOTE | 2021-06-13 13:00 | NUR ---
ROUNDING ON PT AND BROUGHT FRESH WATER. SHE DENIES PAIN OR NEEDS AT THIS TIME. CRACKLES PRESENT THROUGH OUT LUNGS AND SHE HAS A MOIST COUGH. ON ROOM AIR AND O2 SAT IS 94%. PT.STATES SHE WOULD LIKE TO TAKE A NAP. LEFT RESTING WITH CALL LIGHT IN REACH.
--- NOTE | 2021-06-13 14:48 | NUR ---
Patient is in bed and said she wasn't hunrgy for lunch. BP on left arm, 136/59. Map 67. Pulse 82.
--- NOTE | 2021-06-13 16:31 | NUR ---
ROUNDING ON PT. SHE DENIES PAIN OR ANY NEEDS AT THIS TIME.
--- NOTE | 2021-06-13 18:55 | NUR ---
Patient's BP was 139/77. MAP 92. Pulse 84. Call light is in reach.
--- NOTE | 2021-06-13 23:09 | NUR ---
AWAKE, WATCHING TV, NO SOB, CALL LIGHT AND FLUIDS AT BEDSIDE
--- NOTE | 2021-06-14 01:19 | NUR ---
pt awake, watching tv, dry, cough present. medicated with Robitussin per cough, call light and fluids at bedside
--- NOTE | 2021-06-14 02:40 | NUR ---
AWAKE, SANDWICH BOX GIVEN ON REQUEST. TOLERATING LIQUIDS AND DIET WELL. CALL LIGHT AT HANDS REACH. INDEPENDENT IN ROOM
--- NOTE | 2021-06-14 04:40 | NUR ---
awake, sitting in bed, received a neb tx earlier, stated she "feels better". Independent in room. tolerating fluids well. call light at bedside
--- NOTE | 2021-06-14 05:06 | NUR ---
Pt continues on Droplet isolation. On room air, lungs with insp/exp wheezing, thight and crackles, cough present, rceived neb tx, Robitussin syrup and tessalon perles with fair relief, medicated with Tylenol X1 per c/o rib/chest pain from coughing. Independent in room, no sob noted on return from br this shift. No c/o adverse reaction to abx. SL patent. Tolerating liquids and diet well. call light and fluids at bedside
--- NOTE | 2021-06-14 05:57 | NUR ---
up to br, voided QS yellow urine, no bm. slight sob with exertion noted. continues to have hacky dry, occassional moist cough, medicated with tesalon perles, cough syrup and tylenol per c/o rib pain from coughing and for cough. tolerating liquid well, no emesins. uses call light
--- NOTE | 2021-06-14 07:45 | NUR ---
REPORT RECEIVED FROM NIGHT RN AND PT. CARE RESUMED. PT. IS ALERT AND ORIENTED. RR IS 28 AND PT. REPORTS FEELING SOB. O2 SAT IS 86% ON RA. PLACED ON 2L NC AND 02 SAT INCREASED TO 96%. WHEEZES AND COARSE CRACKLES THROUGHOUT LUNGS. RT CALLED FOR BREATHING TX. NO EDEMA PRESENT. IV SITE WNL AND FLUSHES WELL. PT. DEMONSTRATES USE OF I.S. AND ENCOURAGED TO USE. TEMP. IS 100.8. TYLENOL ADMIN. AT 0530. WILL NOTIFY OF CHANGES.
--- NOTE | 2021-06-14 09:00 | NUR ---
MD UPDATED ON RESPIRATORY CHANGES AND TEMP. NO NEW ORDERS. PT. BROUGHT BEDSIDE COMMODE AND DISCUSSED SAFETY. LEFT RESTING WITH CALL LIGHT IN REACH.
--- NOTE | 2021-06-14 09:49 | NUR ---
Patient refused breakfast. BP 153/71. Map 93. Pulse 89. RESP. 39. Call light is in reach.
--- NOTE | 2021-06-14 11:35 | NUR ---
SPOKE WITH RENU BUTLER, PATIENT CURRENTLY ON O2 @ 2L. RENU BUTLER STATES THAT PATIENT HAS FELT MORE SHORT OF BREATH TODAY AND HAD A FEVER LAST NIGHT. WILL DIFFER FOLLOW UP WITH PATIENT AT THIS TIME. WILL CONTINUE TO CHECK IN ON PATIENT DURING HER VISIT.
--- NOTE | 2021-06-14 11:40 | NUR ---
ROUNDING ON PT. SHE DENIES NEEDS AT THIS TIME. REPORTS COUGH IMPROVED AND SHE HAD A SHORT NAP. R.T. IN THE ROOM.
--- NOTE | 2021-06-14 15:26 | NUR ---
Patient is in bed and RN is in the room. BP 165/79. MAP 98. Pulse 83. Call light is in reach.
--- NOTE | 2021-06-14 17:45 | NUR ---
159/75 BP. 96 Map. Patient is in bed and has eaten all of her dinner. Call light is in reach.
--- NOTE | 2021-06-14 21:00 | NUR ---
Tessalon perles 100mg po admin for reports of cough.
--- NOTE | 2021-06-14 22:09 | NUR ---
Patient resting in bed, no distress. Patient denies sob at rest, oxygen 1L per nc, respirations even and non labored. No current needs. Personal supplies and call light within reach.
--- NOTE | 2021-06-14 23:38 | NUR ---
Patient resting in bed, eyes closed, respirations even and non labored. Patient has no distress. Personal supplies and call light within reach.
--- NOTE | 2021-06-15 00:51 | NUR ---
0009 Patient is sleeping, doesn't awaken to her name and is resting well and without cough. She had requested treatments through the night, and I have flagged this one - her nurse is aware and approves.
--- NOTE | 2021-06-15 02:21 | NUR ---
Hunter ibarra 5ml admin for reports of cough.
--- NOTE | 2021-06-15 04:12 | NUR ---
Patient resting in bed, eyes closed, respirations even and non labored. No current needs.
--- NOTE | 2021-06-15 05:27 | NUR ---
Zofran 4mg ivp admin for reports of nausea.
--- NOTE | 2021-06-15 05:38 | NUR ---
Tylenol 650mg po and tessalon perles 100mg po admin for cough and temperature of 100.1f. Cool compress provided to patient at this time. Patient remains on 1L oxygen, respirations 24/min.
--- NOTE | 2021-06-15 07:15 | NUR ---
this rn received report from shelly hernandez. pt appears to be resting at this time. this rn will recheck temp.
--- NOTE | 2021-06-15 07:45 | NUR ---
this rn in pts room per pt request for cough meds. this rn provided pt with collin this am. this rn also checked pts temp- 98.4!
--- NOTE | 2021-06-15 09:07 | NUR ---
the patient was sitting in the bed. warm washcloth offered and taken. water refreshed. call light within reach. shower offered, patient said yes she would like a sponge bath. no further needs at this time.
--- NOTE | 2021-06-15 09:15 | NUR ---
THIS RN IN PTS ROOM JAGDISH GIVE PT MORNING MEDS. PT STATES THAT SHE IS DOING GOOD THIS AM, FEELING BETTER BUT HER BACK IS SORE FROM THE BED. PTS TEMP IS STAYING DOWN. WHEN THIS RN WENT TO FLUSH PTS IV IT STARTED LEAKING, THIS RN TO ALLOW PT TO EAT AND THEN PLACE ANOTHER IV.
--- NOTE | 2021-06-15 10:30 | NUR ---
THIS RN BACK IN PTS ROOM TO GIVE PT THE REST OF MORNING MEDS AND PLACE NEW IV. PT STATES THAT SHE IS DOING GOOD, COLD, BUT GOOD. PT HAS NO OTHER NEEDS AT THIS TIME
--- NOTE | 2021-06-15 14:00 | NUR ---
THIS RN IN PTS ROOM TO GIVE SCHEDULED MEDS. PT APPEARS TO BE DROWSY AT THIS TIME, NOT INTERESTED IN EATING. PT REPORTS HAVING A HEADACHE. THIS RN TOOK PTS TEMP- 99.8, WOULD LIKE PT TO HAVE TYLENOL- NO REDRAW OF BLOODCULTURES. RT NUBIA ASKING MD FOR CHEST XRAY AND EKG, ALSO ASKED THIS RN FOR A BLOOD SUGAR- BLOOD SUGAR TAKEN BY CHARAN CAMACHO WAS 105
--- NOTE | 2021-06-15 16:42 | NUR ---
REPORT RECEIVED FROM SOFYA RN AND PT. CARE RESUMED. TEMP. TAKEN AND WAS 98.3. PT. REPORTS FEELING LETHARGIC TODAY AND WORSE THAN YESTERDAY. 02 SAT. IS 94% ON 0.5L NC. DISCUSSED NUTRITION AND POC. LEFT RESTING WITH R.T. IN THE ROOM.
--- NOTE | 2021-06-15 18:21 | EKG ---
[facility] [address] [place] [address] Signed Normal sinus rhythm Left posterior fascicular block Abnormal ECG When compared with ECG of 12-MAR-2020 17:36, Nonspecific T wave abnormality now evident in Inferior leads Nonspecific T wave abnormality now evident in Lateral leads Confirmed by BRIAN BRAMBILA MD ([id number]) on 06/15/2021 6:21:12 PM Electronically Signed By: BRIAN BRAMBILA MD 06/15/211820 PATIENT NAME: KATELYNPILLOANALY Electrocardiogram DATE OF : 63 PHYSICIAN: BRIAN BRAMBILA MD REPORT #: [id number] REPORT IS CONFIDENTIAL AND NOT TO BE RELEASED WITHOUT AUTHORIZATION
--- NOTE | 2021-06-15 20:47 | NUR ---
Tessalon perles 100mg and tylenol 650mg po admin for reports of head pain and cought.
--- NOTE | 2021-06-15 20:57 | NUR ---
In to administer hs medications. Patient in bed watching tv, appears drowsy. Patient reports and ongoing headache with cough. Tylenol and tessalon perles given. Patient provided with fresh water. Patient reports poor appetite today. IV abx started per provider order. Patient encouraged to use ISS at bedside-pt reports she is using frequently. No acute distress or needs at this time. Encouraged patient to call if she has needs. Personal supplies and call light within reach.
--- NOTE | 2021-06-15 23:29 | NUR ---
Patient in bed sleeping, eyes closed, respirations even and non labored. Patient has no distress. Personal supplies and call light within reach.
--- NOTE | 2021-06-16 01:30 | NUR ---
Robitussin 10ml admin for cough.
--- NOTE | 2021-06-16 03:02 | NUR ---
Patient continues to sleep, eyes closed, respirations non labored. Patient is on 1L oxygen per nc. Personal supplies and call light within reach.
--- NOTE | 2021-06-16 03:04 | NUR ---
Robitussin 10ml admin for cough.
--- NOTE | 2021-06-16 07:20 | NUR ---
this rn received report from shelly hernandez. pt appears to be resting at this time with respirations at thsi time.
--- NOTE | 2021-06-16 08:51 | NUR ---
THIS RN IN PTS ROOM TO GIVE MORNING MEDS. VITALS TAKEN. PT APPEARS TO BE DOING BETTER THIS AM. PT REQUESTING FOR COUGH MEDS, THIS RN PROVIDED PT WITH 10ML OF ROBITUSSIN. PT HAS NO OTHER NEEDS AT THIS TIME.
--- NOTE | 2021-06-16 09:51 | NUR ---
THIS RN IN PTS ROOM TO SWITCH OVER ANTIBIOTICS. PT SAYS THAT SHE IS DOING WELL AND ONLY NEEDS FRESH ICE WATER. PT STATES THAT SHE IS FEELING BETTER THAN YESTERDAY, STILL FEELS "LIKE A TRUCK HIT ME" BUT BETTER.
--- NOTE | 2021-06-16 10:50 | NUR ---
THIS RN IN PTS ROOM TO STOP PTS ANTIBIOTICS. PT STATES THAT SHE IS HAVING PAIN WITH FLUSHING, THIS RN NOTED THAT IV FLUSHES WELL. THIS RN WILL ALLOW IV TO REST FOR NOW, IF STILL PAINFUL THIS RN WILL START A NEW IV. PT REDNESS OR SWELLING AT THE SITE NOTED. PT REPORTS THAT SHE IS HAVING A HEADACHE FROM HER COUGHING, THIS RN PROVIDED PTWITH 650MG OF TYLENOL AT THIS TIME.
--- NOTE | 2021-06-16 12:42 | NUR ---
THIS RN IN PTS ROOM TO PLACE A CLONIDINE PATCH ON PT. PT HAD REMINDED NUBIA FROM RT WHO HAD NOTIFIED THIS RN. PATCH PLACE ON LEFT CHEST PER PT REQUEST DUE TO SCAR TISSUE ON RIGHT CHEST
--- NOTE | 2021-06-16 14:15 | NUR ---
THIS RN IN PTS ROOM TO START PTS ANTIBIOTIC- PTS IV LEAKING. THIS RN TO RESTART PTS IV. PT TOLERATED WELL AND IV ANTIBIOTIC STARTED. PT STATES THAT SHE NEEDS NOTHING ELSE AT THSI TIME.
--- NOTE | 2021-06-16 16:16 | NUR ---
ORDERED PATIENT'S DINNER AND BREAKFAST. PATIENT TOOK A SHOWER. CHANGED BED LINENS. PATIENT IS NOW SITTING UP IN HER CHAIR. ALSO BROUGHT HER TWO CUPS OF ICE WATER.
--- NOTE | 2021-06-16 17:30 | NUR ---
THIS RN IN PTS ROOM TO GIVE SCHEDULED MEDS. PTS APPETITE SEEMS TO HAVE IMPROVED THIS EVENING DUE TO PT HAVING EATING ALL OF HER DINNER. THIS RN OFFERED PT COUGH MEDS DUE TO PT NOTING THAT HER HEADACHE IS IMPROVED FROM EARLIER (HEADACHE FROM COUGHING). ROBITUSSIN GIVEN. PT HAS NO OTHER NEEDS AT THIS TIME.
--- NOTE | 2021-06-16 19:15 | NUR ---
SHIFT REPORT FROM SOFYA BUTLER RECEIVED. PT WATCHING TV. NC @ 1L. NO NEEDS AT THIS TIME. CALL LIGHT IN REACH.
--- NOTE | 2021-06-16 21:08 | NUR ---
ASSESSMENT, VS AND I&O COMPLETED. LUNGS HAVE EXPIRATORY WHEEZE IN UPPER LOBES AND DIM IN LOWER LOBES. GCS 15, A&O X4. HEART TONES REGULAR. ABD SOFT, NONTENDER, BOWEL TONES ACTIVE. CMS INTACT. IV WNL, CDI, FLUSHED WELL. NC @ 1L. ICE WATER PROVIDED. NO OTHER NEEDS. CALL LIGHT IN REACH.
--- NOTE | 2021-06-16 23:50 | NUR ---
PT RESTING IN BED. NC @ 1L. RR EVEN, UNLABORED. CALL LIGHT IN REACH.
--- NOTE | 2021-06-17 01:49 | NUR ---
PT RESTING IN BED, EYES CLOSED. NC @ 1L. RR EVEN, UNLABORED. CALL LIGHT IN REACH.
--- NOTE | 2021-06-17 02:27 | NUR ---
SCHEDULED MED PROVIDED. PT IS COUGHING, PRN COUGH MED PROVIDED. ASSESSMENT COMPLETED. LUNG HAVE EXPIRATORY WHEEZE IN ALL LOBES AND CRACKLES IN LOWER LOBES. IV CDI, IV MED INFUSING. PT HAS SOB WITH ACTIVITY. NO OTHER NEEDS AT THIS TIME. CALL LIGHT IN REACH.
--- NOTE | 2021-06-17 04:00 | NUR ---
PT RESTING IN BED, EYES CLOSED. RR EVEN, UNLABORED. NC @ 1L. CALL LIGHT IN REACH.
--- NOTE | 2021-06-17 06:03 | NUR ---
SCHEDULED MED PROVIDED. NO OTHER NEEDS. CALL LIGHT IN REACH.
--- NOTE | 2021-06-17 07:10 | NUR ---
this rn received report from lori hernandez. pt getting chest x-ray at this time.
--- NOTE | 2021-06-17 08:40 | NUR ---
THIS RN IN PTS ROOM TO GIVE MORNING MEDS. PT SITTING UP IN BED AND HAS EATEN ALL OF HE BREAKFAST. PT STAES THAT SHE DID FEEL BETTER YESTERDAY MORNING COMPARED TO THIS AM, BUT BETTER THAN ON THURSDAY. THIS RN SLOWED DOWN UNASYN INFUSION DUE TO PT REPORTING THAT ONE OF HER INFUSIONS FOR ANTIBIOTICS BURNED. NO OHTER NEEDS NOTED AND CALL LIGHT WITHIN REACH.
--- NOTE | 2021-06-17 08:45 | NUR ---
THIS RN BACK IN PTS ROOM TO START PTS NEXT ANTIBIOTIC. INFUSTION WAS STARTING PT STATED THAT IT WAS BURNING, THIS RN TO SLOW DOWN THE DOXY ANTIBIOTIC WELL, PT STATES THAT THIS FEELS FINE. 1000- THIS RN CALLED BACK IN DUE TO PT STATING THAT INFUSION WAS BURING AGAIN, THIS RN KEPT THE RATE THE SAME BUT PROVIDED PT WITH A WARM BLANKET FOR IV SITE- IV SITE APPEARS WNL- THIS RN ALSO TO RUN NORMAL SAILIENE CONCURRENTLY. PT ABLE TO STATE THAT BURNING WAS IMPROVING.
--- NOTE | 2021-06-17 10:04 | NUR ---
BP 152/72. RN was notified. Patient is in bed with call light.
--- NOTE | 2021-06-17 14:02 | NUR ---
PT ALERT, ORIENTED AND PLEASANT. PT FEELS INFORMED, BUT DID WONDER WHAT ARE THE SIGNS/SYMPTOMS THAT SHOULD LET HER KNOW SHE NEEDS A BREATHING TREATMENT. WILL PASS ON TO [facility]. HAD POSITIVE VISIT, PT REQUESTED PRAYER. LEFT A G. POST AND WILL FOLLOW
--- NOTE | 2021-06-17 14:15 | NUR ---
this rn in pts room to give pt scheduled meds. pt sitting up in chair at this time, states that she was feeling warm and wanted a change of scenery- pt states no fever. this rn educated pt about how steriods, neb trreatments, is, and conet work with the lungs- pt states understanding- this rn also discussed with pt when to use/ ask for a neb treatment. pt states that she needs nothing further at this time.
--- NOTE | 2021-06-17 14:49 | NUR ---
Patient vitals, I&Os are done.
--- NOTE | 2021-06-17 14:49 | NUR ---
BP was 156/71.
--- NOTE | 2021-06-17 17:46 | NUR ---
Patient is in bed with call light in reach. BP was 165/61. Pulse was 67.
--- NOTE | 2021-06-17 19:10 | NUR ---
RECEIED REPORT FROM DAY SHIFT RN. PATIENT IS RESTING IN BED. PATIENT DENIES ANY NEEDS. CALL LIGHT IN REACH.
--- NOTE | 2021-06-17 22:51 | NUR ---
PATIENT ASSESMENT COMPLETED. PATIENTS IV IS NO LONGER PATENT. NEW IV STARTED. PATIENTS VITALS TAKEN AND RECORDED. PATIENT DENIES ANY PAIN OR SOB. PATIENTS INTAKE AND OUTPUT RECORDED. PATIENT PLACED ON 1L VIA NC. PATIENTS SCHEDULED MEDICATIONS GIVEN PER ORDER. PATIENT PROVIDED WITH SNACK AND FRESH ICE WATER. PATIENT DENIES ANY NEEDS. CALL LIGHT IN REACH.
--- NOTE | 2021-06-18 00:49 | NUR ---
PATIENT IS RESTING IN BED. PATIENT DENIES ANY NEEDS. CALL LIGHT IN REACH.
--- NOTE | 2021-06-18 02:55 | NUR ---
PATIENT IS RESTING IN BED WITH EYES CLOSED, RR 15. CALL LIGHT IN REACH.
--- NOTE | 2021-06-18 05:47 | NUR ---
PATIENTS VITALS TAKEN AND RECORDED. INTAKE AND OUTPUT RECORDED. RT IN ROOM. PATIENT IS NOW ON RA. PATIENT DENIES ANY PAIN OR SOB. PATIENTS MORNING MEDICATIONS GIVEN PER ORDER. PATIENTS ICE WATER REFILLED. PATIENT DENIES ANY NEEDS. CALL LIGHT IN REACH.
--- NOTE | 2021-06-18 07:05 | NUR ---
Report received from Judit BUTLER. Pt resting in bed with eyes closed, respirations even and unlabored. No needs identified at this time, will continue plan of care.
--- NOTE | 2021-06-18 07:50 | NUR ---
PT WAS SITTING UP IN BED. PT STATED THEY WILL GET UP TO USE THE BATHROOM AND SIT IN CHAIR SOON. PT WAS GIVEN A WARM WASHCLOTH FOR THEIR FACE. PT STATED THEY DO NOT WANT A SHOWER IF THEY GO HOME IN THE MORNING. WHITEBOARD IS UPDATED. CALL LIGHT IS WITHIN REACH. NO FURHTER NEEDS AT THIS TIME.
--- NOTE | 2021-06-18 08:50 | NUR ---
Spoke with pt last week, but assessment was not saved. Pt lives in an a apartment and her friend assists her with outings and gocery shopping. Pt drives self when feeling well. She does not use any DME. She is on disability and has food stamps. Plans on return to home when recovered from RSV. Pt asks if she will cont. her nebulizer treatments at home. She does not have a nebulizer a home. Spoke with Dr. Louis and he will complete rx and written notes.
--- NOTE | 2021-06-18 09:15 | NUR ---
Scheduled medications administered, assessment complete. Pt sitting up in chair, conversational and in good spirits. Coarse crackles noted in LL lung, clear otherwise. Pt reports no pain or needs at this time.
--- NOTE | 2021-06-18 12:06 | NUR ---
PT SITTING UP IN BED, WATCHING T. SHE IS ALERT, ORIENTED AND HOPING TO DC TODAY. PT IS NOW ON RM AIR, SEEMS EXCITED WITH THIS IMPROVMENT. REQUESTED PRAYER, WILL FOLLOW NEEDED
--- NOTE | 2021-06-18 12:38 | NUR ---
Faxed Rx, H&P,note, face sheet to [facility] pt will dc today. Texted [employer] their corporate driver and he is in town today and has a Nebulizer. He will bring to the hospital when auth completed and he has made his other drops.
--- NOTE | 2021-06-18 13:00 | NUR ---
Notified by [employer], he will deliver Nebulizer shortly. Pt updated. Rx for neb treatments sent to [facility] for scheduled delivery. Our pharmacy will send enough with pt until [facility] care deliver.
[2021-06-18] MEDS ORDERED: AMOX TR-K CLV1 EAC1 PO (13:06)
[2021-06-18] MEDS ORDERED: DOXYCYCLINE HY100 MG PO (13:07)
[2021-06-18] MEDS ORDERED: PREDNISONE20 MG PO (13:10)
[2021-06-18] MEDS ORDERED: IPRAT-ALBUT 0.5-3 ML INH (13:11)
[2021-06-18] MEDS ORDERED: AERONEB GO NEB1 EACH INH (13:12)
--- NOTE | 2021-06-18 14:39 | NUR ---
Discharge teaching provided to patient who verbalizes understanding and has no questions. Information packets on RSV and PNA provided. Followup appointments made, pt notified. IV removed WNL. VSS. A+O. Friend to provide ride home.
== END 2021-06-18 14:50 | disposition home or self-care (01) | DRG 193 ==
LOC: ED 14:37 → MS 22:31
PROVIDERS: ADMIT Internal Medicine; ATTEND Internal Medicine
DX: J12.1 Respiratory syncytial virus pneumonia (principal); J96.01 Acute respiratory failure with hypoxia; J44.1 Chronic obstructive pulmonary disease with (acute) exacerbation; J44.0 Chronic obstructive pulmonary disease with (acute) lower respiratory infection; N18.4 Chronic kidney disease, stage 4 (severe); D75.81 Myelofibrosis; Z94.84 Stem cells transplant status; N17.9 Acute kidney failure, unspecified; Z20.822 Contact with and (suspected) exposure to COVID-19; E78.5 Hyperlipidemia, unspecified; K21.9 Gastro-esophageal reflux disease without esophagitis; D63.8 Anemia in other chronic diseases classified elsewhere; Z88.2 Allergy status to sulfonamides; Z88.1 Allergy status to other antibiotic agents; Z88.8 Allergy status to other drugs, medicaments and biological substances; Z87.891 Personal history of nicotine dependence; D46.9 Myelodysplastic syndrome, unspecified; Z90.710 Acquired absence of both cervix and uterus; E86.0 Dehydration; Z85.6 Personal history of leukemia; I12.9 Hypertensive chronic kidney disease with stage 1 through stage 4 chronic kidney disease, or unspecified chronic kidney disease
CPT/HCPCS: 71045; 71250; 80048; 80053; 83735; 85025; 93005; 93010; 94640; 94667; 94668; 94760; 96365; 99285-25; C9803; J0295; J0456; J1650; J2405; J2920; J2930; J7060; J7512; U0003

== ENCOUNTER 2022-07-16 10:58 | Emergency (ER) | payer MEDICARE, OTHER ==
[~2022-07-16] VITALS: Ht 157.5 cm; Wt 71.7 kg
[~2022-07-16 10:58] MED LIST changes: +ADULT ASPIRIN R81 MG PO; +AERONEB GO NEB1 EACH INH; +AMOX TR-K CLV1 EAC1 PO; +ARIPIPRAZOLE5 MG PO; +AZITHROMYCIN250 MG PO; +CARVEDILOL25 MG PO; +CHLORTHALIDONE25 MG PO; +CLONIDINE1 EAC2 TD; +DOXYCYCLINE HY100 MG PO; +EUTHYROX25 MCG PO; +FLOVENT HFA12 G1 INH; +IPRAT-ALBUT 0.5-3 ML INH; +MONTELUKAST SOD10 MG PO; +PRILOSEC OTC20 MG PO; +ROSUVASTATIN CA20 MG PO; +SPIRONOLACTONE25 MG PO; +VENTOLIN HFA18 GM INH; +VITAMIN D325 MCG PO
[2022-07-16] MEDS ORDERED: ARTHRITIS PAIN50 GM TOP (11:37)
== END 2022-07-16 11:45 | disposition home or self-care (01) ==
LOC: ED 10:58
DX: M25.562 Pain in left knee (principal); I10 Essential (primary) hypertension; D64.9 Anemia, unspecified; Z87.891 Personal history of nicotine dependence; Z88.2 Allergy status to sulfonamides; Z88.8 Allergy status to other drugs, medicaments and biological substances; Z79.899 Other long term (current) drug therapy; Z79.82 Long term (current) use of aspirin
CPT/HCPCS: 99283